=== PATIENT | male | born 1995 | race African-American/Black ===

== ENCOUNTER 2024-08-03 01:45 | Emergency (ER) | payer MEDICAID, SELFPAY ==
[2024-08-03 01:46] VITALS: BP 147/100; PULSE 97; RESP 18; TEMP 36.7; O2SAT 100
--- NOTE | 2024-08-03 02:21 | ED_ITS ---
HPI - General Adult General Chief complaint: Wound/Laceration Stated complaint: frostbite to toe Time Seen by Provider: 08/03/24 02:12 History of Present Illness HPI narrative: 28-year-old male presenting to the emergency department for evaluation for a wound to his left great toe. Patient reports he was walking back from a hotel to the care home where he lives. Patient states he does have a history of footdrop and was not wearing his foot brace and this was causing his foot to drag. This resulted in a avulsion laceration to the tip of the left great toe. Related Data Allergies Allergy/AdvReac Type Severity Reaction Status Date / Time No Known Allergies Allergy Verified 08/03/24 02:37 Review of Systems Review of Systems: All systems reviewed & are unremarkable except as noted in HPI and below Course Vital Signs Vital signs: Vital Signs Temperature 98.0 F 08/03/24 01:46 Pulse Rate 97 08/03/24 01:46 Respiratory Rate 18 08/03/24 01:46 Blood Pressure 147/100 H 08/03/24 01:46 Pulse Oximetry 100 08/03/24 01:46 Oxygen Delivery Room Air 08/03/24 01:46 Temperature 98.0 F 08/03/24 01:46 Pulse Rate 97 08/03/24 01:46 Respiratory Rate 18 08/03/24 01:46 Blood Pressure 147/100 H 08/03/24 01:46 Pulse Oximetry 100 08/03/24 01:46 Oxygen Delivery Room Air 08/03/24 01:46 Medical Decision Making [facility] Narrative Medical decision making narrative: 28-year-old male presenting to the emergency department for evaluation for an injury to his great toe. Sensation intact to the entire left toe and warm to touch. Patient was advised to continue to wear his foot brace and to wear a dressing on the toe until it heals. Patient was started on oral Keflex. Patient is currently on oral Bactrim for urinary tract infection. Differential Diagnosis Differential Diagnosis: Avulsion injury, frostbite Vital Signs Vital Signs: Vital Signs Temperature 98.0 F 08/03/24 01:46 Pulse Rate 97 08/03/24 01:46 Respiratory Rate 18 08/03/24 01:46 Blood Pressure 147/100 H 08/03/24 01:46 Pulse Oximetry 100 08/03/24 01:46 Oxygen Delivery Room Air 08/03/24 01:46 Temperature 98.0 F 08/03/24 01:46 Pulse Rate 97 08/03/24 01:46 Respiratory Rate 18 08/03/24 01:46 Blood Pressure 147/100 H 08/03/24 01:46 Pulse Oximetry 100 08/03/24 01:46 Oxygen Delivery Room Air 08/03/24 01:46 Discharge Plan Discharge Clinical Impression: Avulsion of skin Patient Disposition: NH Shelter/Asst Living Condition: Stable Instructions: Antibiotic Form, Skin Avulsion (ED) Additional Instructions: Keep wound clean and covered. Wear your foot brace to prevent footdrop. Have close follow-up with your primary care physician for a wound check. Patient Language: Frisian Prescriptions: New cephalexin 500 mg capsule 500 mg PO Q8H 7 Days Qty: 21 0RF
[2024-08-03] MEDS: CEPHALEXIN 500 MG CAPSULE PO (02:48)
[2024-08-03 09:23] VITALS: BP 131/80; PULSE 93; RESP 17; O2SAT 100
--- OUTSIDE RECORDS SUMMARY | 2024-08-10 03:27 | XMS_ITS | Encounter Summary ---
Author Organization [facility] Address [address] [place] [address] Care Team Providers Care Corporate Safety Coordinator Name Role Phone Mady Sullvian MD Primary Care Provider Encounter Details Date Type Department Care Team (Late st Contact Info) Description 11/02/2023 Interim Notes [id number] [place] [address] [facility] [place] Social History Tobacco Use Types Packs/Day Years Used Date Smoking Tobacco: Never Smokeless Tobacco: Never Alcohol Use Standard Drinks/Week Comments Yes 0 (1 standard drink = 0.6 oz pur e alcohol) occasional Social Connections Answer Date Recorded Connectedness 0 10/08/2020 Financial Resource Strain Answer Date R ecorded Financial Resource Strain 0 2020 Stress Answer Date Recorded Stress 0 10/08/2020 Physical Activity Answer Date Recorded Physical Activity 0 10/08/2020 Food Insecurity Answer Date Recorded Food 0 10/08/2020 Transportation Needs Answer Date Record ed Transportation 0 10/08/2020 Housing Stability Answer Date Recorded Housing 0 10/08/2020 Safety and Environment Answer Date Steven rded Safety 0 10/08/2020 Utilities Answer Date Recorded Utilities 0 10/08/2020 Employment Answer Date Recorded Stress 0 10/08/2020 Sex and Gender Information Value Date Recorded Sex Assigned at Male 12/05/2022 8:19 AM PDT Legal Sex Male 10:03 AM PST Gender Identity Male 12/05/2022 8:19 AM PDT Sexual Orientation Don't know 12/05/2022 2: 00 PM PDT documented as of this encounter Progress Notes * [facility] Provider Default - 11/02/2023 12:00 AM CDT Provider: Mahsa Dill [employer] Service: documented in this encounter Plan of Treatment Not on file documented as of this encounter Visit Diagnoses Not on filedocumented in this encounter Additional Health Concerns Assessment Noted Time PHQ-9 Depression Total Score: 6 12/06/19 12:00 PM PDT documented as of this encounter Care Teams Corporate Safety Coordinator Relationship Specialty Start Date End Date Mady Sullivan MD [address] [place] [id number] PCP - General Infectious Diseases 12/22/22 documented as of this encounter
--- OUTSIDE RECORDS SUMMARY | 2024-08-10 03:27 | XMS_ITS | Encounter Summary ---
Author Organization [facility] Address [address] [place] [address] Care Team Providers Care Attending Pathologist Name Role Phone Mady Sullivan MD Primary Care Provider Encounter Details Date Type Department Care Team (Latest Contact Info) Description 12/22/2022 Travel Social History Tobacco Use Types Packs/Day Years [...] Don't know 12/05/2022 2: 00 PM PDT COVID-19 Exposure Response Date Recorded In the last 10 days, have yo u been in contact with someone who was confirmed or suspected to have Coronavirus/COVID-19? No / Unsure 12/22/2022 9:33 AM CDT documented as of this encounter Plan of Treatment Not on file documented as of this encounter Visit Diagnoses Not on filedocumented in this encounter Additional Health Concerns Assessment Noted Time PHQ-9 Depression Total Score: 6 12/06/19 23 12:00 PM PDT documented as of this encounter Care Teams Attending Pathologist Relationship Specialty Start Date End Date Mady Sullivan MD [address] [place] [id number] PCP - General Infectious Diseases 12/22/22 documented as of this encounter
--- OUTSIDE RECORDS SUMMARY | 2024-08-10 03:27 | XMS_ITS | Encounter Summary ---
Author Organization [facility] Address [address] [place] [address] Care Team Providers Care Manager Highway Name Role Phone Mady Sullivan MD Primary Care Provider Reason for Visit * Reason Comments Care Coordination Encounter Details Date Type Department Care Team (Late st Contact Info) Description 12/04/2023 Interim Notes [facility] [address] [place] [id number] Mary Mena [address] [place] [address] Social History Tobacco Use Types Packs/Day Years [...] as of this encounter Progress Notes * Mary Mena - 12/05/2023 3:06 PM CDT Clinic CM provided a brief services check in. Pt completed [facility] intake. documented in this encounter Plan of Treatment Not on file documented as of this encounter Visit Diagnoses Not on filedocumented in this encounter Additional Health Concerns Assessment Noted Time PHQ-9 Depression Total Score: 4 12/04/19 24 4:00 PM PDT documented as of this encounter Care Teams Manager Highway Relationship Specialty Start Date End Date Mady Sullivan MD [address] [place] [phone] PCP - General Infectious Diseases 12/22/22 documented as of this encounter
--- OUTSIDE RECORDS SUMMARY | 2024-08-10 03:27 | XMS_ITS | Encounter Summary ---
Author Organization [facility] Address [address] [place] [address] Care Team Providers Care Javascript Web Developer Name Role Phone Mady Sullivan MD Primary Care Provider Reason for Visit * Reason Comments Oral Surgery 11 17 29 ext Encounter Details Date Type Department Care Team (Late st Contact Info) Description 08/29/2023 9:30 AM FILM MASKER Office Visit [address] [address] YenniJuan J mills, FIDEL [address] [place] [address] [id number] Retained tooth root (Primary Dx) Social History Tobacco Use Types Packs/Day Years [...] PM PDT documented as of this encounter Last Filed Vital Signs Vital Sign Reading Time Taken Comments Blood Pressure 120/78 08/29/2023 9:48 AM FILM MASKER Pulse 62 08/29/2023 9:48 AM FILM MASKER Temperature 36.4 ??C (97.6 ??F) 08/29/2023 9:48 AM CS T Respiratory Rate - - Oxygen Saturation - - Inhaled Oxygen Concentration - - Weight - - Height - - Body Mass Index - - documented in this encounter Progress Notes * Juan J Torres DMD - 08/29/2023 10:25 AM CST DENTAL EXTRACTION Confirmed client by name and date of . SUBJECTIVE: Phil Chase, 27 year old male, presents alone for extraction. Blower Insulator: Not applicable Chief Complaint Patient presents with Oral Surgery 4 30 ext OBJECTIVE: RMHx: Yes Vitals: 08/29/2023 9:48 AM BP 120/78 Pulse 62 BP Site Right Wrist BP Position Sitting BP Cuff Size Regular Adult Pain Score 0 - No pain Temp 97.6 (36.4) Temp source Forehead / Temporal RADIOGRAPHS TAKEN AND REVIEWED: None taken - previous radiographs reviewed ASSESSMENT: Verification of sterile instruments confirmed via internal and external indicator. Dx: K08.3 Retained tooth root (primary encounter diagnosis) Dx Details (Clinical Decision-Making): Patient reports for extraction of #4, #28, #30 but doesn't want to have #28 extracted due to he is having wedding photos taken. Will do #4 only today. PLAN: Informed Consent/PARQ (Procedure, Alternatives, Risks, Questions): Patient confirms informed consent using PARQ, reviewed extraction consent and signed. Time-out completed: Patient identity confirmed, Patient and provider confirm tooth/teeth to be extracted today, and Provider reviewed current radiograph (taken within 6 months) Dental procedures in this visit D7210 - EXTRACTION ERU TOOTH RQR REMV BONE &/SECTN TOOTH 4 (Completed) Service provider: Juan J Torres DMD Billing provider: Juan J Torres DMD MEDHXU - MEDICAL HISTORY UPDATE (Completed) Service provider: Juan J Torres DMD Billing provider: Juan J Torres DMD [id number] - ORAL HYGIENE INSTRUCTIONS Full (Completed) Service provider: Juan J Torres DMD Billing provider: Juan J Torres DMD Topical Anesthetic: 20% topical benzocaine Local Anesthetic: 1 carpule 4% articaine (Septocaine) with 1:100k epi Injection administered: Infiltration Extraction(s) completed. Details: periosteal, elevator, forceps, socket irrigated, socket curretted, hemostasis obtained, gauze pressure, confirmed roots in tact and socket clear, no complications Post-Op Information Given: written & verbal - - All questions answered, patient left in stable and alert condition. Pain Management: not indicated for this procedure Referral: No orders of the defined types were placed in this encounter. Rx: No orders of the defined types were placed in this encounter. Behavior: Excellent DA: Adrienne Scales [place]: Treatment - Extraction #28 and #30 Juan J Torres DMD [id number] documented in this encounter Plan of Treatment Not on file documented as of this encounter Procedures Procedure Name Priority Date/Time Associated Diagnosis Comments MEDICAL HISTORY UPDATE Routine 9:30 AM FILM MASKER Retained tooth root 4 EXTRACTION ERU TOOTH RQR REMV BONE &/SECTN TOOTH Routine 08/29/2023 9:30 AM FILM MASKER Retained tooth root Full ORAL HYGIENE INSTRUCTIONS Routine 08/29/2023 9:30 AM FILM MASKER Retained tooth root documented in this encounter Visit Diagnoses Diagnosis Retained tooth root- Primary Retained dental root documented in this encounter Additional Health Concerns Assessment Noted Time PHQ-9 Depression Total Score: 6 12/06/19 12:00 PM PDT documented as of this encounter Care Teams Javascript Web Developer Relationship Specialty Start Date End Date Mady Sullivan MD [address] [place] [id number] PCP - General Infectious Diseases 12/22/22 documented as of this encounter
--- OUTSIDE RECORDS SUMMARY | 2024-08-10 03:27 | XMS_ITS | Encounter Summary ---
Author Organization [facility] Address [address] [place] [address] Care Team Providers Care Deoiling Machine Operator Name Role Phone Mady Sullivan MD Primary Care Provider Encounter Details Date Type Department Care Team (Late st Contact Info) Description 06/27/2023 Interim Notes [facility] [address] [place] [phone] Mary Pozo [address] [place] [address] Social History Tobacco Use Types Packs/Day Years [...] of this encounter Progress Notes * Mary Pozo - 06/27/2023 11:22 AM CST Patient is enrolled into with [employer], patient requested his DCN# from clinic cm which wasprovided to him, no other immediate needs at this visit. documented in this encounter Plan of Treatment Not on file documented as of this encounter Visit Diagnoses Not on filedocumented in this encounter Additional Health Concerns Assessment Noted Time PHQ-9 Depression Total Score: 6 12/06/19 12:00 PM PDT documented as of this encounter Care Teams Deoiling Machine Operator Relationship Specialty Start Date End Date Mady Sullivan MD [address] [place] [phone] PCP - General Infectious Diseases 12/22/22 documented as of this encounter
--- OUTSIDE RECORDS SUMMARY | 2024-08-10 03:27 | XMS_ITS | Encounter Summary ---
Author Organization [facility] Address [address] [place] [address] Care Team Providers Care Customs And Border Protection Inspector Name Role Phone Mady Sullivan MD Primary Care Provider Reason for Visit * Reason Onset Date Comments Behavioral Health Outreach 07/10/2023 Individual Counseling 07/10/2023 Encounter Details Date Type Department Care Team (Late st Contact Info) Description 07/10/2023 / TELEPHONE [facility] [place] [address] [place] [address] Zana Ramos, MEDICAL AFFAIRS SPECIALIST, STEM MOUNTER [address] [place] [address] Social History Tobacco Use Types Packs/Day Years [...] PM PDT documented as of this encounter Nursing Notes * AIDE Silva, MONA - 07/10/2023 1:44 PM CST Made several attempts to contact the client for our scheduled appointment and did not receive a response. Will follow-up and assist as needed. documented in this encounter Plan of Treatment Not on file documented as of this encounter Visit Diagnoses Not on filedocumented in this encounter Additional Health Concerns Assessment Noted Time PHQ-9 Depression Total Score: 6 12/06/19 12:00 PM PDT documented as of this encounter Care Teams Customs And Border Protection Inspector Relationship Specialty Start Date End Date Mady Sullivan MD [address] [place] [phone] PCP - General Infectious Diseases 12/22/22 documented as of this encounter
--- OUTSIDE RECORDS SUMMARY | 2024-08-10 03:27 | XMS_ITS | Encounter Summary ---
Author Organization [facility] Address [address] [place] [address] Care Team Providers Care Fellmongering Machine Operator Name Role Phone Mady Sullivan MD Primary Care Provider Reason for Referral * Psychiatry (Routine) - Closed Specialty Diagnoses / Procedures Referred By Contac t Referred To Contact Psychiatry / Mental Health Diagnoses Anxiety Mady Sullivan MD [address] [place] [id number] Phone: tel: fax: [address] [phone] Phone: tel: fax: Referral ID Status Reason Start Date Expiration Date V isits Requested Visits Authorized [id number] [facility] 06/27/2023 06/26/2024 1 1 Comments 27 year old man with HIV that was recently not controlled with low CD4, now with good control on meds and engaged in treatment. Patient has prior diagnosis of bipolar I, depression and history of methamphetamine use (per chart, in our discussion he denies; sounds like he was in remission for a long time then relapsed this fall), with multiple hospitalizations for SI/SA in past, usually around the same time each year, last ED visit 06/21/23. He has been on sertraline, recently dose increased from 50 to 100 mg, added abilify and atarax prn. Patient says anxiety continues to be very profound and debilitating. He is recently engaged and going back to school to finish a master's in computer science, this is exciting but also contributing to his anxiety. Of note, recently developed erectile dysfunction, not sure if related to med changes. On exam he has pressured affect and hyperkinesia. Intermittently engaged in therapy with Zana. 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 Referral for evaluation, therapy, consideration for orthotics OMER CARE REPRESENTATIVE Reason for Visit * Reason Comments HIV Follow Up Encounter Details Date Type Department Care Team (Latest Contact Info) Description 06/27/2023 10:00 AM CUSTOMER CARE REPRESENTATIVE Office Visit [facility] [employer] [address] [place] [phone] Mady Sullivan MD [address] [place] [phone] Human immunodeficiency virus (HIV) disease ([facility]) (Primary Dx); Screening examination for STD (sexually transmitted disease); Need for hepatitis C screening test; Erectile dysfunction, unspecified erectile dysfunction type; Lipid screening; Need for dqtsdifmpm-iqdevsr-zoinx ssis (Tdap) vaccine; Need for HPV vaccination; Right foot drop; Anxiety; Unilateral inguinal hernia with obstruction and without gangrene, recurrence not specified; Condyloma; Bipolar 2 disorder ([facility]) Social History Tobacco Use Types Packs/Day Years [...] Sign Reading Time Taken Comments Blood Pressure 139/94 06/27/2023 10:39 AM CUSTOMER CARE REPRESENTATIVE Pulse 77 06/27/2023 10:39 AM CUSTOMER CARE REPRESENTATIVE Temperature 36.3 ??C (97.4 ??F) 06/27/2023 10:[address] Respiratory Rate 18 06/27/2023 10:39 AM CUSTOMER CARE REPRESENTATIVE Oxygen Saturation 95% 06/27/2023 10:39 AM CUSTOMER CARE REPRESENTATIVE Inhaled Oxygen Concentration - - Weight 77.2 kg (170 lb 3.2 oz) 06/27/2023 10:39 AM CUSTOMER CARE REPRESENTATIVE Height 182.9 cm (6') 06/27/2023 10:39 AM CUSTOMER CARE REPRESENTATIVE Body Mass Index 23.08 06/27/2023 10:39 AM CUSTOMER CARE REPRESENTATIVE documented in this encounter Patient Instructions * Attachments The following attachments cannot be sent through Care Everywhere. * Anxiety Disorder (Albanian) * Stress: Progressive Muscle Relaxation: General Info (Albanian) documented in this encounter Progress Notes * Mady Sullivan MD - 06/27/2023 10:00 AM CST Images from the original note were not included. HPI: Phil Chase is a 27 year old male with history of HIV infection who presents to [facility] clinic for routine follow-up. Patient was last seen in clinic on 03/21/23. Lab Results Component Value Date CD4 202 (L) 03/21/2023 CD4 120 (L) 12/05/2022 CD4 148 (L) 10/08/2020 Lab Results Component Value Date COPIESML <20 DETECTED (A) 03/21/2023 COPIESML 50 (H) 12/05/2022 COPIESML 355,000 (H) 10/08/2020 Interim - got his R inguinal hernia repair in late March! - recently engaged! HIV - Much improved viral control, last visit ND on Biktarvy - endorses continued excellent adherence to Biktarvy - CD4 reached 202 in February, has not been on Bactrim, but unclear why stopped ?communication issue R. Inguinal Hernia - met with Dr. Blair last on 04/19 to remove drains, assessed to be doing well - healed well but I have a third testicle - feels an extra mass on right scrotum - no other symptoms: no abdominal/groin pain, no dysuria, no skin changes, no LAD History of syphilis - finished bicillin last December - no symptoms, has new monogamous partner Condyloma - recurrent after prior exision/fulguration - referred to colorectal surgery last visit, has not seen yet, requesting phone number - feels it is bigger - no pain, bleeding. Depression/anxiety/bipolar - prior h/o of SI and plan, 06/2022, recently seen in ED on 06/21/23 - medications were changed: on sertraline 50 mg daily increased to 100mg - has been on abilify 2 vs 4 months. Has prn hydroxyzine - having marked anxiety, finds it debilitating. Wedding planning and plans to go back to school adding to anxiety (though also excited). Current med regimen does not seem to be helping with this. - has not had outpatient psychiatry follow up, interested now. Previously engaged in therapy with Zana, interested in restarting - denies methamphetamine or other stimulant use, though notes he has tried it. Chart review notes he may have used more in past but has been in remission except for a relapse around the time of his ED visit - not exercising regularly, meditated in the past but not recently ED - erectile dysfunction in last 2 months: unable to have an erection at all when with partner - has morning erection and able to have erection when alone, normal ejaculation, no change in libido - change came after hernia repair recovery, does not seem correlated - time frame of of zoloft dose increase and ability also 2ish months History of transverse myelitis with residual RLE weakness, foot drop, RLE parasthesia on gabapentin - had discussed orthotics at some point but not fitted - symptoms stable Habits - STI screen - yes 3sites - tobacco - vape, cannabis - etoh - 2 days every weeks 4 shots - other- reports trying methamphetamines denies regular use SH - Newly engaged! As of last week. 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 30 Tablet 0 ibuprofen 600 mg tablet Take 1 Tablet by mouth every 6 (six) hours as needed FOR PAIN 30 Tablet 0 oxyCODONE (ROXICODONE) 5 mg tablet Take 1 (one) tablet by mouth every 6 hours as needed for Pain 20Tablet 0 sennosides-docusate sodium (SENOKOT-S) 8.6-50 mg per tablet Take 1 tablet by mouth once daily 30 Tablet 0 sertraline (ZOLOFT) 50 mg tablet TAKE 1 TABLET BY MOUTH DAILY 30 Tablet 2 sulfamethoxazole-trimethoprim (BACTRIM DS) 800-160 mg per tablet Take 1 tablet by mouth daily. 30 Tablet 0 doxycycline (VIBRAMYCIN) 100 mg capsule Take 1 Capsule by mouth 2 (two) times daily 14 Capsule 0 triamcinolone (KENALOG) 0.1 % ointment Apply topically 2 (two) times daily 80 g 1 docusate sodium (COLACE) 100 mg capsule Take 1 capsule (100 mg total) by mouth 2 (two) times a day 30 Capsule 0 oxyCODONE (ROXICODONE) 5 mg tablet Take 1 tablet (5 mg total) by mouth every 4 (four) hours as needed for pain 30 Tablet 0 No current facility-administered medications for this visit. Review of Systems: General: no unexplained weight loss, night sweats and fever Skin: no rash, ulcers and lesions Lymph: no localized enlargement of lymph nodes Mouth: no gum disease, ulcers, oral lesions and pain Cardiopulmonary: no chest pain, shortness of breath and palpitations Gastrointestinal: no diarrhea, nausea and abdominal pain Genitourinary: no dysuria and urethral discharge or lesions, testicular sx per hpi Physical Exam: Vitals: Last 3 Vitals Flowsheet Row Office Visit from 06/27/2023 in [facility] Office Visit from 03/21/2023 in [facility] Office Visit from 12/05/2022 in [facility] Temp 97.4 ??F (36.3 ??C) 97.4 ??F (36.3 ??C) 97.3 ??F (36.3 ??C) Pulse 77 97 63 BP 139/94 104/62 145/91 Resp 18 -- -- Weight 170 lb 3.2 oz (77.2 kg) 166 lb (75.3 kg) 172 lb 12.8 oz (78.4 kg) Exam: Gen: well appearing, comfortable, nad; pressured affect, hyperkinesis HENT: EOMI, no conjunctival injection, no o/p lesions, no cervical LAD Card: RRR no m/r/g Pulm: CTAB Abd: soft nontender nondistended, no hsm appreciated Rectal exam: 3-4 small condyloma exam - right scrotum with two distinct masses, one typical for testis the second less characteristic, appears to be connected to testis. Left scrotum with single testis. Excess scrotal skin. No inguinal LAD or bulging Extremities: no peripheral edema, warm, well perfused Laboratory Data: Routine: Latest Ref Rng & Units 03/21/2023 3:23 PM 12/05/2022 11:41 AM 10/08/2020 11:25 AM HIV HIV Viral Load NOT DETECTED <20 DETECTED 50 355,000 Latest Ref Rng & Units 03/21/2023 3:23 PM 12/05/2022 11:41 AM 10/08/2020 11:25 AM CBC White blood cell count 3.8 - 10.8 Thousand/uL 3.8 4.4 2.5 Hemoglobin 13.2 - 17.1 g/dL 15.1 13.9 15.3 Hematocrit 38.5 - 50.0 % 46.6 46.2 47.8 Platelets 140 - 400 Thousand/uL 529 398 336 Latest Ref Rng & Units 03/21/2023 3:23 PM 12/05/2022 11:41 AM 10/08/2020 11:25 AM Liver Enzymes AST 10 - 40 U/L 16 14 26 ALT 9 - 46 U/L 20 13 24 Alk phos 36 - 130 U/L 80 90 80 Bilirubin total 0.2 - 1.2 mg/dL 0.4 0.4 0.6 Latest Ref Rng & Units 03/21/2023 3:23 PM 12/05/2022 11:41 AM 10/08/2020 11:25 AM Creatinine Creatinine 0.60 - 1.24 mg/dL 1.02 0.94 1.08 Annuals: Lab Results Component Value Date QUANTIFERON NEGATIVE 03/21/2023 Lab Results Component Value Date HEPCABQL NON-REACTIVE 12/05/2022 Lab Results Component Value Date HGBA1C 5.2 06/12/2023 Lab Results Component Value Date CHOL 191 10/08/2020 HDL 47 10/08/2020 LDL 127 (H) 10/08/2020 TRIGLYC 75 10/08/2020 Lab Results Component Value Date URPROT 1+ (A) 10/08/2020 URGLUC NEGATIVE 10/08/2020 No results found for: [id number] Lab Results Component Value Date HEPAABQL REACTIVE (A) 10/08/2020 HBSAB NON-REACTIVE 10/08/2020 HBSAGQL NON-REACTIVE 10/08/2020 Lab Results Component Value Date HEPCABQL NON-REACTIVE 12/05/2022 STI: Lab Results Component Value Date RPR REACTIVE (A) 03/21/2023 RPR REACTIVE (A) 12/05/2022 RPR REACTIVE (A) 10/08/2020 Lab Results Component Value Date CHLAMYDIA NOT DETECTED 03/21/2023 CHLAMYDIA NOT DETECTED 12/05/2022 CHLAMYDIA NOT DETECTED 10/08/2020 CHLAMPHARYNG NOT DETECTED 03/21/2023 CHLAMPHARYNG NOT DETECTED 12/05/2022 CHLAMANAL NOT DETECTED 03/21/2023 CHLAMANAL DETECTED (A) 12/05/2022 GC NOT DETECTED 03/21/2023 GC NOT DETECTED 12/05/2022 GC NOT DETECTED 10/08/2020 GCPHARYNG NOT DETECTED 03/21/2023 GCPHARYNG NOT DETECTED 12/05/2022 GCANAL NOT DETECTED 03/21/2023 GCANAL NOT DETECTED 12/05/2022 Immunization History Administered Date(s) Administered DTAP 1993, 02/23/1994, 05/18/1994, 04/05/1995, 10/15/1998 Flu, Preservative Free 06/17/2023 HPV 9 03/21/2023, 06/27/2023 Hep A, Ped/adol, 2 Dose 10/05/2005 Hep B, Adult/Adol (ENERGIX/RECOMBIVAX) 08/06/2019 Hep B, Unspecified 01/05/1994, 04/10/1994, 09/22/1998 Hib (PRP-T) 1993, 02/23/1994, 05/18/1994, 04/05/1995 IPV 02/05/2003 MENINGOCOCCAL MCV4P (MENACTRA) 10/05/2005 MMR 10/19/1994, 10/15/1998 OPV, Trivalent 1993, 02/23/1994, 05/18/1994 PNEUMOCOCCAL CONJUGATE PCV 13 08/06/2019 PNEUMOCOCCAL POLYSACCHARIDE PPV23 08/06/2019 POLIO, UNSPECIFIED 11/18/1996 Pfizer-BioNTech COVID-19 Vaccine Bivalent, (RENEE PFIZER-BIONTECH COVID-19 VACCINE BIVALENT, (RENEE CAP 07/12/2022 TDAP 06/27/2023 Varicella, Live Vaccine 11/18/1996 Problem List: Patient Active Problem List Diagnosis HIV infection ([facility]) Syphilis Right foot drop 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[facility]) Anal warts HSV infection Anal fistula Bipolar disorder, current episode mixed, moderate ([facility]) Condyloma RENEE (generalized anxiety disorder) Inguinal hernia Major depressive disorder, recurrent episode, moderate ([facility]) Assessment/Plan: Phil was seen today for hiv and follow up. Diagnoses and all orders for this visit: Human immunodeficiency virus (HIV) disease ([facility]) - recently well controlled on Biktarvy - Cd4 was newly 202 in February but Bacrtim stopped in interim, ?miscommunication - routine labs today, if CD4 dips below 200 restart bactrim - serodiscordant partner on PrEP, discussed U=U - BLOOD COUNT COMPLETE AUTO&AUTO DIFRNTL WBC - COMPREHENSIVE METABOLIC PANEL - HIV-1 RNA QUANT REAL TIME PCR, PLASMA - T CELLS ABSOLUTE CD4&CD8 COUNT RATIO Screening examination for STD (sexually transmitted disease) - RPR (MONITOR) W/REFL TITER - C TRACHOMATIS/N GONORRHOEAE RNA,TMA - CHLAMYDIA/GONORRHOEAE RNA, TMA, THROAT - CHLAMYDIA/GONORRHEA, RNA TMA, RECTAL Erectile dysfunction, unspecified erectile dysfunction type - reports normal nocturnal penile tumescence, normal erection/ejaculation when on his own, normal libido - primarily has ED when with partner - differential: hypogonadism, anxiety, increased zoloft/added abilify, other - ASSAY OF TESTOSTERONE TOTAL Right foot drop - REFERRAL TO PHYSICAL THERAPY Bipolar 2 disorder ([facility]) Anxiety - bipolar 1 listed in parts of chart - h/o of SI/SA, most recently in ED for this in 06/21/23 - recent med adjustment: inc zoloft dose to 100, added abilify, atarax prn - having debilitating anxiety and interested in med adjustment - ?comorbid substance use. maybe in remission - discussed role for regular exercise, relaxation techniques, meditation - will follow up with Zana for therapy - REFERRAL TO PSYCHIATRY Unilateral inguinal hernia with obstruction and without gangrene, recurrence not specified - s/p Mesh repair in 03/2023 - well healed but two masses in left scrotum, ?epididymiss, appears to be connected to testis - no pain, signs of inflammation - patient to schedule follow up with Dr. Blair to evaluate if anything related to hernia or surgery - consider scrotal us if not able able to get follow up soon or thought to be primarily urological,STI testing today Condyloma - thinks it got bigger, no bleeding or pain - provided number for colorectal surgery referral again - discussed discussed transmission risk - it is possible, they are using condoms HCM Need for hepatitis C screening test Need for HPV vaccination Lipid screening Need for ylxmgpguer-ijbcjgu-ibsnyqkbq (Tdap) vaccine - next visit meningococcal -> got age 10, never got second booster at 14 - third hpv in ~August - IM ADM PRQ ID SUBQ/IM NJXS 1 VACCINE - LIPIDS W RFLX TO DIRECT LDL - IM ADM PRQ ID SUBQ/IM NJXS EA VACCINE - HEPATITIS C AB W/RFLX HCV RNA, QT, RT PCR - 9VHPV VACC 2/3 DOSE SCHED IM USE - TDAP VACCINE 7 YRS/> IM Follow Up: Return in about 6 weeks (around 08/08/2023). Total time spent today on today's visit including both face to face time and non-face to face time personally spent on history taking and exam, review of labs, medications, care gaps, and informationin CareEverywhere, discussing labs, treatment plans, goals, and referrals to specialists if needed,and answering patient's questions and coordinating care: 43 minutes documented in this encounter Miscellaneous Notes * Result Encounter Note - Mady Sullivan MD - 07/02/2023 1:03 PM CUSTOMER CARE REPRESENTATIVE GC x 2 neg RPR titer persists though >> 4 fold decrease since November 2022 titer and treatment (32 fold dropin 7 months) Tcells much improved to 286 * Result Encounter Note - Mady Sullivan MD - 06/28/2023 4:16 PM CUSTOMER CARE REPRESENTATIVE PENDING- Gcx2, RPR titer, tcells CMP nl - slightly hi protein Lipids - nl RPR - reactive (known) HIV VL ND GC x 1 * Result Encounter Note - Mady Sullivan MD - 06/28/2023 8:32 AM CUSTOMER CARE REPRESENTATIVE PENDING- Gcx3, lipids, RPR, tcells, HIV VL, CMP CBC - slight leukopenia close to previous Testosterone - slightly high 892 (ULM 827) Ddx: adrenal etiology, exogenous testosterone, exogenous hyperprolactinemia, Will await CMP to further assess differential and next steps HCV neg - tested sooner per pt request * Patient Instructions - Mady Sullivan MD - 06/27/2023 11:17 AM CUSTOMER CARE REPRESENTATIVE Great to see you today! Here are next steps (1) Schedule Colorectal [facility] [phone] F [phone] (2) schedule a follow up with Dr. Blair at [facility] re: hernia surgery follow up questions [phone] (3) Follow up with Dr. Decker (psychiatry) about medication/anxiety management and Lamara for therapy (4) For Anxiety: in addition to follow up, start regular exercise with whatever is enjoyable (running, yoga, pilates) at least once a week and increase to at least three times a week. See informationon relaxation techniques and consider meditation. Make sure you get plenty of sleep each night. documented in this encounter Plan of Treatment Scheduled Referrals Name Type Priority Associated Diagnoses Orde r Schedule REFERRAL TO PHYSICAL THERAPY Referral Routine Right foot drop Ordered: 06/27/2023 REFERRAL TO PSYCHIATRY Referral Routine Anxiety Ordered: 06/27/2023 documented as of this encounter Procedures Procedure Name Priority Date/Time Associated Diagnosis Comments CHLAMYDIA/GONORRHOEA E RNA, TMA, THROAT Routine 06/27/2023 3:17 PM CUSTOMER CARE REPRESENTATIVE Screening examination for STD (sexually transmitted disease) CHLAMYDIA/GONORRHEA, RNA TMA, RECTAL Routine 06/27/2023 3:17 PM CUSTOMER CARE REPRESENTATIVE Screening examination for STD (sexually transmitted disease) HEPATITIS C AB W/RFLX HCV RNA, QT, RT PCR Routine 06/27/2023 11:21 AM CUSTOMER CARE REPRESENTATIVE Need for hepatitis C screening test C TRACHOMATIS/N GONORRHOEAE RNA,TMA Routine 06/27/2023 11:21 AM CUSTOMER CARE REPRESENTATIVE Screening examination for STD (sexually transmitted disease) RFLX - RPR TITER Routine 06/27/2023 11:2 1 AM CUSTOMER CARE REPRESENTATIVE HIV-1 RNA QUANT REAL TIME PCR, PLASMA Routine 06/27/2023 11:21 AM CUSTOMER CARE REPRESENTATIVE Human immunodeficiency virus (HIV) disease ([facility]) LIPIDS W RFLX TO DIRECT LDL Routine 06/27/2023 11:21 AM CUSTOMER CARE REPRESENTATIVE Lipid screening RPR (MONITOR) W/REFL TITER Routine 06/27/2023 11:21 AM CUSTOMER CARE REPRESENTATIVE Screening examination for STD (sexually transmitted disease) T CELLS ABSOLUTE CD4&CD8 COUNT RATIO Routine 06/27/2023 11:21 AM CUSTOMER CARE REPRESENTATIVE Human immunodeficiency virus (HIV) disease ([facility]) BLOOD COUNT COMPLETE AUTO&AUTO DIFRNTL WBC Routine 06/27/2023 11:21 AM CUSTOMER CARE REPRESENTATIVE Human immunodeficiency virus (HIV) disease ([facility]) ASSAY OF TESTOSTERONE TOTAL Routine 06/27/2023 11:21 AM CUSTOMER CARE REPRESENTATIVE Erectile dysfunction, unspecified erectile dysfunction type COMPREHENSIVE METABOLIC PANEL Routine 06/27/2023 11:21 AM CUSTOMER CARE REPRESENTATIVE Human immunodeficiency virus (HIV) disease ([facility]) documented in this encounter Results * CHLAMYDIA/GONORRHEA, RNA TMA, RECTAL (06/27/2023 3:17 PM CUSTOMER CARE REPRESENTATIVE) CHLAMYDIA TRACHOMATIS RNA, TMA, RECTAL NOT DETECTED [facility]/ [facility] [place] GONORRHOEAE RNA, TMA, RECTAL NOT DETECTED [facility]/ [facility] Comment: REFERENCE RANGE: ??NOT DETECTED Methodology: ??Mold Design Engineer Mediated Amplification (TMA) to detect RNA. The analytical performance characteristics of this assay have been determined by [employer] [facility]. The modifications have not been cleared or approved by the FDA. This assay has been validated pursuant to the CLIA regulations and is used for clinical purposes. Swab Specimen from rectum / Unknown 06/27/2023 3:17 PM CUSTOMER CARE REPRESENTATIVE 06/28/2023 9:07 AM CUSTOMER CARE REPRESENTATIVE us Mady Sullivan MD LAB - NO BLOOD DRAW Ed ited Result - Final [employer] [address] [address] [place] [address] [facility] [employer]/[facility] [id number] [place] [id number] * CHLAMYDIA/GONORRHOEAE RNA, TMA, THROAT (06/27/2023 3:17 PM CUSTOMER CARE REPRESENTATIVE) CHLAMYDIA TRACHOMATIS RNA, TMA, THROAT NOT DETECTED [facility]/ [facility] NEISSERIA GONORRHOEAE RNA, TMA, THROAT NOT DETECTED [facility]/ [facility] Comment: REFERENCE RANGE: ??NOT DETECTED Methodology: ??Mold Design Engineer Mediated Amplification (TMA) to detect RNA. The analytical performance characteristics of this assay have been determined by [employer]. The modifications have not been cleared or approved by the FDA. This assay has been validated pursuant to the CLIA regulations and is used for clinical purposes. For additional information, please refer to https://education.ShopEx.Couple/faq/KYP204 (This link is being provided for informational/educational purposes only.) Swab Structure of anterior portion of neck / Unknown 06/27/2023 3:17 PM CUSTOMER CARE REPRESENTATIVE 06/28/2023 9:07 AM CUSTOMER CARE REPRESENTATIVE us Mady Sullivan MD LAB - NO BLOOD DRAW Ed ited Result - Final Performing Organization Address City/[facility]/ZIP Co de Phone Number [facility] [address] [address] [place] [address] [facility] [address] [place] [address] * (ABNORMAL) RFLX - RPR TITER (06/27/2023 11:21 AM CUSTOMER CARE REPRESENTATIVE) RPR TITER 1:64(H) [facility] [place] 06/27/2023 11:2 1 AM CUSTOMER CARE REPRESENTATIVE 06/27/2023 11:23 AM CUSTOMER CARE REPRESENTATIVE Mady Sullivan MD LAB - BLOOD DRAW Edite d Result - Final Performing Organization Address City/[facility]/ZIP Co de Phone Number [facility] [place] [address] [place] [address], [email or web address] [address] [place] [address] * LIPIDS W RFLX TO DIRECT LDL (06/27/2023 11:21 AM CUSTOMER CARE REPRESENTATIVE) Pathologist [facility] CHOLESTEROL, TOTAL 163 <200 mg/dL [facility] [place] HDL CHOLESTEROL 49 > OR = 40 mg/dL [facility] [place] TRIGLYCERIDES 66 <150 mg/dL [facility] [place] LDL-CHOLESTEROL 99 mg/dL (calc) [facility] [place] Comment: Reference range: <100 Desirable range <100 mg/dL for primary prevention; ?? <70 mg/dL for patients with CHD or diabetic patients with > or = 2 CHD risk factors. LDL-C is now calculated using the Merrick-Marychuy calculation, which is a validated novel method providing better accuracy than the Friedewald equation in the estimation of LDL-C. Merrick SS et al. PARESH. 2013;310(19): 9414-9392 (http://education.[employer]/faq/VVL585) CHOL/HDLC RATIO 3.3 <5.0 (calc) [facility] NON-HDL CHOLESTEROL 114 <130 mg/dL (calc) [facility] Comment: For patients with diabetes plus 1 major ASCVD risk factor, treating to a non-HDL-C goal of <100 mg/dL (LDL-C of <70 mg/dL) is considered a therapeutic option. Blood Blood / Unknown 06/27/2023 1 1:21 AM CUSTOMER CARE REPRESENTATIVE 06/28/2023 3:06 AM CUSTOMER CARE REPRESENTATIVE us Mady Sullivan MD LAB - BLOOD DRAW Edite d Result - Final Performing Organization Address City/[facility]/ZIP Co de Phone Number [employer] [address] [address], [employer] [address] [address] * (ABNORMAL) ASSAY OF TESTOSTERONE TOTAL (06/27/2023 11:21 AM CUSTOMER CARE REPRESENTATIVE) TESTOSTERONE, TOTAL 892(H) 250 - 827 ng/dL [employer] [place] Blood Blood / Unknown 06/27/2023 1 1:21 AM CUSTOMER CARE REPRESENTATIVE 06/28/2023 3:15 AM CUSTOMER CARE REPRESENTATIVE us Mady Sullivan MD LAB - BLOOD DRAW Edite d Result - Final Performing Organization Address [facility] Co de Phone Number [employer] [address] [address], [employer] [address] [address] * HEPATITIS C AB W/RFLX HCV RNA, QT, RT PCR (06/27/2023 11:21 AM CUSTOMER CARE REPRESENTATIVE) HEPATITIS C ANTIBODY NON-REACT FARTUN NON-REACT FARTUN [email or web address] [place] Comment: HCV antibody was non-reactive. There is no laboratory evidence of HCV infection. In most cases, no further action is required. However, if recent HCV exposure is suspected, a test for HCV RNA (test code 37182) is suggested. For additional information please refer to http://education.[employer]/faq/LHM17o8 (This link is being provided for informational/ educational purposes only.) Blood Blood / Unknown 06/27/2023 1 1:21 AM CUSTOMER CARE REPRESENTATIVE 06/28/2023 3:15 AM CUSTOMER CARE REPRESENTATIVE us Mady Sullivan MD LAB - BLOOD DRAW Edite d Result - Final Performing Organization Address City/[facility]/ZIP Co de Phone Number [employer] [place] [id number] [place] [address], [employer] [address] [address] * C TRACHOMATIS/N GONORRHOEAE RNA,TMA (06/27/2023 11:21 AM CUSTOMER CARE REPRESENTATIVE) [facility] CHLAMYDIA TRACHOMATIS RNA, TMA NOT DETECTED NOT DETECTED [email or web address] [place] NEISSERIA GONORRHOEAE RNA, TMA NOT DETECTED NOT DETECTED [facility] COMMENT [facility] [place] Urine Urine specimen / Unknown 06/27/2023 11:21 AM CUSTOMER CARE REPRESENTATIVE 06/28/2023 5:44 AM CUSTOMER CARE REPRESENTATIVE Narrative [facility] [place] - 06/29/2023 12:36 AM CUSTOMER CARE REPRESENTATIVE The analytical performance characteristics of this assay, when used to test SurePath(TM) specimens have been determined by [employer]. The modifications have not been cleared or approved by the FDA. This assay has been validated pursuant to the CLIA regulations and is used for clinical purposes. For additional information, please refer to https://education.[employer]/faq/DZH801 (This link is being provided for information/ educational purposes only.) us Mady Sullivan MD LAB - NO BLOOD DRAW Ed ited Result - Final Performing Organization Address City/[facility]/ZIP Co de Phone Number [employer] [place] [phone] [place] [address], [employer] [address] [address] * (ABNORMAL) RPR (MONITOR) W/REFL TITER (06/27/2023 11:21 AM CUSTOMER CARE REPRESENTATIVE) [facility] RPR (MONITOR) W/REFL TITER REACTIVE( A) NON-REACT FARTUN [facility] Comment: The RPR is a raf-alufqahwxd-relxxygf test; therefore, a treponemal-specific confirmatory test should be performed unless prior syphilis infection has been documented for this patient. Blood Blood / Unknown 06/27/2023 1 1:21 AM CUSTOMER CARE REPRESENTATIVE 06/28/2023 3:34 AM CUSTOMER CARE REPRESENTATIVE us Mady Sullivan MD LAB - BLOOD DRAW Edite d Result - Final Performing Organization Address City/[facility]/ZIP Co de Phone Number [employer] [facility] [place] [address] [place] [address], [employer] [facility] [address] [place] [address] * (ABNORMAL) T CELLS ABSOLUTE CD4&CD8 COUNT RATIO (06/27/2023 11:21 AM CUSTOMER CARE REPRESENTATIVE) [facility] % CD4 (HELPER CELLS) 12(L) 30 - 61 % [facility] [place] ABSOLUTE CD4+ CELLS 286(L) 490 - 1,740 cells/uL [facility] [place] % CD8 (SUPPRESSOR T CELLS) 64(H) 12 - 42 % [facility] [place] ABSOLUTE CD8+ CELLS 1,457(H) 180 - 1,170 cells/uL [facility] [place] HELPER/SUPPRESS OR RATIO 0.20(L) 0.86 - 5.00 [facility] [place] ABSOLUTE LYMPHOCYTES 2,293 850 - 3,900 cells/uL [facility] [place] COMMENT(S) CANCELED [facility] [place] Comment:Result canceled by debora tavera. Blood Blood / Unknown 06/27/2023 1 1:21 AM CUSTOMER CARE REPRESENTATIVE 06/28/2023 8:44 PM CUSTOMER CARE REPRESENTATIVE us Mady Sullivan MD LAB - BLOOD DRAW Edite d Result - Final [facility] [place] [address] [place] [address] [facility] [place] [address] [place] [address] * HIV-1 RNA QUANT REAL TIME PCR, PLASMA (06/27/2023 11:21 AM CUSTOMER CARE REPRESENTATIVE) COPIES/ML NOT DETECTED NOT DETECTED copies/mL [facility] LOG COPIES/ML NOT DETECTED NOT DETECTED Log copies/mL [facility] Comment: This test was performed using Real-Time Polymerase Chain Reaction. Reportable Range: 20 copies/mL to 10,000,000 copies/mL (1.30 log copies/mL to 7.00 log copies/mL). Blood Blood / Unknown 06/27/2023 1 1:21 AM CUSTOMER CARE REPRESENTATIVE 06/28/2023 3:06 AM CUSTOMER CARE REPRESENTATIVE Mady Sullivan MD LAB - BLOOD DRAW Edite d Result - Final [facility] [place] [address] [place] [address], [employer] [facility] [address] [place] [address] * (ABNORMAL) COMPREHENSIVE METABOLIC PANEL (06/27/2023 11:21 AM CUSTOMER CARE REPRESENTATIVE) Pathologist [facility] GLUCOSE 67 65 - 99 mg/dL [facility] Comment: ? Fasting reference interval UREA NITROGEN (BUN) 13 7 - 25 mg/dL [facility] CREATININE (blood) 0.94 0.60 - 1.24 mg/dL [facility] EGFR 113 > OR = 60 mL/min/1. 73m2 [facility] BUN/CREATININE RATIO SEE NOTE: 6 (calc) [facility] Comment: ?? Not Reported: BUN and Creatinine are within ?? reference range. ? SODIUM 138 135 - 146 mmol/L [facility] POTASSIUM 5.0 3.5 - 5.3 mmol/L [facility] CHLORIDE 104 98 - 110 mmol/L [facility] CARBON DIOXIDE 23 20 - 32 mmol/L [facility] CALCIUM 9.8 8.6 - 10.3 mg/dL [facility] PROTEIN, TOTAL 8.4(H) 6.1 - 8.1 g/dL [facility] ALBUMIN 4.3 3.6 - 5.1 g/dL [facility] GLOBULIN 4.1(H) 1.9 - 3.7 g/dL (calc) [facility] ALBUMIN/GLOBULI N RATIO 1.0 1.0 - 2.5 (calc) [facility] BILIRUBIN, TOTAL 0.4 0.2 - 1.2 mg/dL [facility] ALKALINE PHOSPHATASE 81 36 - 130 U/L [facility] AST 15 10 - 40 U/L [facility] ALT 15 9 - 46 U/L [facility] Blood Blood / Unknown 06/27/2023 1 1:21 AM CUSTOMER CARE REPRESENTATIVE 06/28/2023 3:06 AM CUSTOMER CARE REPRESENTATIVE Mady Sullivan MD LAB - BLOOD DRAW Edite d Result - Final [facility] [place] [address] [place] [address], [email or web address] [address] [place] [address] * (ABNORMAL) BLOOD COUNT COMPLETE AUTO&AUTO DIFRNTL WBC (06/27/2023 11:21 AM CUSTOMER CARE REPRESENTATIVE) WHITE BLOOD CELL COUNT 3.6(L) 3.8 - 10.8 Thousand/ uL [facility] RED BLOOD CELL COUNT 5.48 4.20 - 5.80 Million/u L [facility] HEMOGLOBIN 14.2 13.2 - 17.1 g/dL [facility] HEMATOCRIT 44.3 38.5 - 50.0 % [facility] MCV 80.8 80.0 - 100.0 fL [facility] MCH 25.9(L) 27.0 - 33.0 pg [facility] MCHC 32.1 32.0 - 36.0 g/dL [facility] RDW 14.9 11.0 - 15.0 % [facility] PLATELET COUNT 326 140 - 400 Thousand/ uL [facility] MPV 10.9 7.5 - 12.5 fL [facility] ABSOLUTE NEUTROPHILS 1,120(L) 1,500 - 7,800 cells/uL [facility] ABSOLUTE LYMPHOCYTES 2,016 850 - 3,900 cells/uL [facility] ABSOLUTE MONOCYTES 288 200 - 950 cells/uL [facility] ABSOLUTE EOSINOPHILS 137 15 - 500 cells/uL [facility] ABSOLUTE BASOPHILS 40 0 - 200 cells/uL [facility] NEUTROPHILS PCT 31.1 % [facility] LYMPHOCYTES 56.0 % [facility] MONOCYTES 8.0 % [facility] EOSINOPHILS 3.8 % [facility] BASOPHILS 1.1 % [facility] ABSOLUTE BAND NEUTROPHILS CANCELED [facility] Comment:Result canceled by t he ancillary. ABSOLUTE METAMYELOCYTES CANCELED [facility] Comment:Result canceled by t he ancillary. ABSOLUTE MYELOCYTES CANCELED [facility] Comment:Result canceled by t he ancillary. ABSOLUTE PROMYELOCYTES CANCELED [facility] Comment:Result canceled by t he ancillary. ABSOLUTE BLASTS CANCELED [facility] Comment:Result canceled by t he ancillary. ABSOLUTE NUCLEATED RBC CANCELED [facility] Comment:Result canceled by t he ancillary. BAND NEUTROPHILS CANCELED [facility] Comment:Result canceled by t he ancillary. METAMYELOCYTES CANCELED [facility] Comment:Result canceled by t he ancillary. MYELOCYTES CANCELED [facility] Comment:Result canceled by t he ancillary. PROMYELOCYTES CANCELED [facility] Comment:Result canceled by t he ancillary. REACTIVE LYMPHOCYTES CANCELED [facility] Comment:Result canceled by t he ancillary. BLASTS CANCELED [facility] Comment:Result canceled by t he ancillary. NUCLEATED RBC CANCELED [facility] Comment:Result canceled by t he ancillary. COMMENT(S) CANCELED [facility] Comment:Result canceled by t he ancillary. Blood Blood / Unknown 06/27/2023 1 1:21 AM CUSTOMER CARE REPRESENTATIVE 06/28/2023 3:48 AM CUSTOMER CARE REPRESENTATIVE us Mady Sullivan MD LAB - BLOOD DRAW Edite d Result - Final [facility] [address] [address], [facility] [place] [address] [address] [address] documented in this encounter Visit Diagnoses Diagnosis Human immunodeficiency virus (HIV) disease (HCC-CMS)- Primary Human immunodeficiency virus [HIV] disease Screening examination for STD (sexually transmitted disease) Screening examination for venereal disease Need for hepatitis C screening test Special screening examination for other specified viral diseases Erectile dysfunction, unspecified erectile dysfunction type Lipid screening Screening for lipoid disorders Need for jznsbfcorp-iandift-jbyxprvve (Tdap) vaccine Need for prophylactic vaccination with combined nvcbktcton-nvqiigw-johfxqqbk (DTP) vaccine Need for HPV vaccination Need for prophylactic vaccination and inoculation against other viral diseases Right foot drop Other acquired deformity of ankle and foot Anxiety Anxiety state, unspecified Unilateral inguinal hernia with obstruction and without gangrene, recurrence not specified Condyloma Condyloma acuminatum Bipolar 2 disorder (HCC-CMS) Other bipolar disorders documented in this encounter Additional Health Concerns Assessment Noted Time PHQ-9 Depression Total Score: 6 12/06/19 23 12:00 PM PDT documented as of this encounter Care Teams 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
--- OUTSIDE RECORDS SUMMARY | 2024-08-10 03:27 | XMS_ITS | Encounter Summary ---
Author Organization [facility] Address [address] [place] [address] Care Team Providers Care Field Checker Name Role Phone Mady Sullivan MD Primary Care Provider Reason for Referral * Neurology (Routine) - Closed Specialty Diagnoses / Procedures Referred By Contac t Referred To Contact Neurology Diagnoses 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[facility]) Mady Sullivan MD [address] [place] [address] Phone: tel: fax: Referral ID Status Reason Start Date Expiration Date V isits Requested Visits Authorized [id number] Closed Specialty Services Required 11/02/2023 11/01/2024 1 1 Comments 28 year old man with well controlled HIV, severe depression/bipolar with close management, methamphetamine use disorder newly in remission (in recovery program) with recent hospitalization (10/09- 10/25) for probable neurosyphilis. He has prior history of transverse myelitis (attributed to HIV) with related foot drop. He presented to for hospitalization with BAY, dizziness, emesis, LBP and worsening RLE. Clinically he has paresthesias over his LE and foot drop, unclear if exam is worse. CT Head no acute process, but significant progression of cerebral atropy with ex vacuo dilatation from 2018 MRI T/L spine. CT temporal bone 10/10 with dehiscence of bilateral sigmoid plates. MRI IAC 10/13/23: punctate focus of restricted diffusion in the left temporal lobe, possible HIV encephalopathy. LP 10/12/23: HSV neg, bacterial cx/gram stain neg, crypto neg, fungal neg; VDRL neg. Serum RPR went from 1:32 to 1:64 in 2 weeks (prior treatment a year ago s/p bicillin x 3). In patient clinician noted some nerve root enhancement at the cauda equina level. Request for evaluation and possible movement disorder appointment. Re-establishing care with PT Reason for Visit * Reason Comments HIV Follow Up Encounter Details Date Type Department Care Team (Latest Contact Info) Description 11/02/2023 9:00 AM CDT Office Visit [email or web address] [address] [place] [phone] Mady Sullivan MD [address] [place] [phone] Human immunodeficiency virus (HIV) disease (HCC-CMS) (Primary Dx); Need for HPV vaccination; Need for meningitis vaccination; Screening examination for STD (sexually transmitted disease); 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HCC-CMS); Neurosyphilis; Major depressive disorder, recurrent episode, moderate (HCC-CMS); Bipolar 2 disorder (HCC-CMS); Methamphetamine use disorder, severe, in early remission (HCC-CMS); Tobacco use; Microcytosis; Condyloma Social History Tobacco Use Types Packs/Day Years Used Date Smoking Tobacco: Never Smokeless Tobacco: Never Tobacco Cessation:Counseling Given: Not Answered Alcohol Use Standard Drinks/Week Comments Yes 0 [...] Sign Reading Time Taken Comments Blood Pressure 143/83 11/02/2023 9:17 AM CDT Pulse 80 11/02/2023 9:17 AM CDT Temperature 36.9 ??C (98.5 ??F) 11/02/2023 9:17 AM CD T Respiratory Rate 18 11/02/2023 9:17 AM CDT Oxygen Saturation 98% 11/02/2023 9:17 AM CDT Inhaled Oxygen Concentration - - Weight 85.5 kg (188 lb 9.6 oz) 11/02/2023 9:17 A M CDT Height 182.9 cm (6') 11/02/2023 9:17 AM CDT Body Mass Index 25.58 11/02/2023 9:17 AM CDT documented in this encounter Progress Notes * Mady Sullivan MD - 11/02/2023 9:00 AM CDT Images from the original note were not included. HPI: Phil Chase is a 28 year old male with history of HIV infection who presents to [facility] clinic for routine + hospital follow-up. Patient was last seen in clinic on 06/27/23. 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 CT temporal bone 10/10 with dehiscence of bilateral sigmoid plates. MRI IAC 10/13/23: punctate focus of restricted diffusion in the left temporal lobe, possible HIV encephalopathy. - LP 10/12/23: HSV neg, bacterial cx/gram stain neg, crypto neg, fungal neg; VDRL neg - per opthal, finding of horseshoe tears, no evidence of intraocular inflammation/infection, plan for laser repair outpatient - Was noted to have decreased hearing in patient; per ENT, no acute interventions this admission, rec outpatient follow up with audiogram - s/p Penicillin IV treatment 10/10 - 10/23, advised to abstain from sex for 10 days (~11/02) Interim - no BAY, dizziness, emesis, BP. No sense of vision change or hearing change - no rashes or sores that he has noticed HIV - well controlled on Biktarvy with continued CD4 recovery (off Bactrim prophy now) - 10/11/23 CD4: 237 Anal condyloma - reporting some bleeding, hasn't seen colorectal yet Depression/anxiety/bipolar/history of trauma - history of SI, plan and attempts with multiple hospitalization c/o methamphetamines - currently in recovery with close support - feeling stable right now, but notes since stopping meth use he has felt very up and down - medications changed during hospitalization then emergency fill at [facility] after discharge- per CM and patient, regimen changed. Abilify 5mg -> doubled? Doxepin 25 mg qhs Cymbalta 60 mg Hydroxyzine 25mg q4 prn -> doubled? Substance use - methamphetamine use disorder with IVDU: currently in remission and recovery program R. Inguinal Hernia s/p repair in 04/19 - no issues History of transverse myelitis with residual RLE weakness, foot drop, RLE parasthesia on gabapentin - did follow up with PT and got orthotics for Foot drop but not followed up recently - unclear if worse from baseline Other issues not addressed today ED Elevated testosterone Habits: - STI screen- interested in testing, has had multiple partners - tobacco 3 cigarettes, interested in quitting - no etoh or other substances, in sobriety SH - living in acute recovery unit, then transitioning to sober living for 6 months Follow up monthly Microcytosis Allergies: No Known Allergies Medications: Current Outpatient Medications Medication Sig Dispense Refill ucwjnqjkj-ruyghgsp-zxraqhk ala (BIKTARVY) 50-200-25 mg tab Take 1 tablet by mouth once daily 30 Tablet 2 DULoxetine (CYMBALTA) [address] capsule Take 60 mg by mouth daily lidocaine (LIDODERM) 5 % patch Place 1 Patch onto the skin nicotine, polacrilex, (NICORETTE) 2 mg gum Take 2 mg by mouth traZODone (DESYREL) 50 mg tablet Take 50 mg by mouth ARIPiprazole (ABILIFY) 5 mg tablet TAKE ONE TABLET BY MOUTH ONCE DAILY 30 Tablet 0 sertraline (ZOLOFT) 100 mg tablet Take 1 tablet (100 mg) by mouth daily 30 Tablet 0 hydrOXYzine HCL (ATARAX) 50 mg tablet Take 50 mg by mouth every 6 (six) hours as needed doxepin (SINEQUAN) 25 mg capsule Take 1 Capsule (25 mg) by mouth nightly as needed for Insomnia. 30Capsule 0 mirtazapine (REMERON) 45 mg tablet Take 45 mg by mouth acetaminophen (TYLENOL) 325 mg tablet Take 2 (two) tablets by mouth every 6 hours as needed for Pain Maximum allowable Acetaminophen amount = 4 Grams (4000 mg) / 24 hours. 30 Tablet 0 ibuprofen 600 mg tablet Take 1 Tablet by mouth every 6 (six) hours as needed FOR PAIN 30 Tablet 0 triamcinolone (KENALOG) 0.1 % ointment Apply topically 2 (two) times daily 80 g 1 No current facility-administered medications for this visit. Review of Systems: General: no unexplained weight loss, night sweats and fever Skin: no rash, ulcers and lesions Mouth: has some broken teeth; gum disease, ulcers, oral lesions and pain Cardiopulmonary: no chest pain, shortness of breath and palpitations Gastrointestinal: +loose stools x 2d, <3/day; no nausea and abdominal pain Genitourinary: no dysuria and urethral discharge or lesions Physical Exam: Vitals: Last 3 Vitals Flowsheet Row Office Visit from 11/02/2023 in [facility] Office Visit from 08/29/2023 in [facility] Office Visit from 08/22/2023 in [facility] Temp 98.5 ??F (36.9 ??C) 97.6 ??F (36.4 ??C) 97.9 ??F (36.6 ??C) Pulse 80 62 47 BP 143/83 120/78 141/94 Resp 18 -- -- Weight 188 lb 9.6 oz (85.5 kg) -- -- Exam: Gen: well appearing, comfortable, nad but pressured affect/tics HENT: EOMI, no conjunctival injection, no o/p lesions, no cervical LAD Card: RRR no m/r/g Pulm: CTAB Abd: soft nontender nondistended, no hsm appreciated Rectal exam: 1.5 cm verucous lesion in superior portion Extremities: no peripheral edema, warm, well perfused Laboratory Data: Routine: Latest Ref Rng & Units 06/27/2023 11:21 AM 03/21/2023 3:23 PM 12/05/2022 11:41 AM HIV HIV Viral Load NOT DETECTED copies/mL NOT DETECTED <20 DETECTED 50 Latest Ref Rng & Units 06/27/2023 11:21 AM 03/21/2023 3:23 PM 12/05/2022 11:41 AM CBC White blood cell count 3.8 - 10.8 Thousand/uL 3.6 3.8 4.4 Hemoglobin 13.2 - 17.1 g/dL 14.2 15.1 13.9 Hematocrit 38.5 - 50.0 % 44.3 46.6 46.2 Platelets 140 - 400 Thousand/uL 326 529 398 Latest Ref Rng & Units 06/27/2023 11:21 AM 03/21/2023 3:23 PM 12/05/2022 11:41 AM Liver Enzymes AST 10 - 40 U/L 15 16 14 ALT 9 - 46 U/L 15 20 13 Alk phos 36 - 130 U/L 81 80 90 Bilirubin total 0.2 - 1.2 mg/dL 0.4 0.4 0.4 Latest Ref Rng & Units 06/27/2023 11:21 AM 03/21/2023 3:23 PM 12/05/2022 11:41 AM Creatinine Creatinine 0.60 - 1.24 mg/dL 0.94 1.02 0.94 Annuals: Lab Results Component Value Date QUANTIFERON NEGATIVE 03/21/2023 Lab Results Component Value Date HEPCABQL NON-REACTIVE 06/27/2023 Lab Results Component Value Date HGBA1C 5.2 08/03/2023 Lab Results Component Value Date CHOL 163 06/27/2023 HDL 49 06/27/2023 LDL 99 06/27/2023 TRIGLYC 66 06/27/2023 Lab Results Component Value Date URPROT 1+ (A) 10/08/2020 URGLUC NEGATIVE 10/08/2020 No results found for: [id number] Lab Results Component Value Date HEPAABQL REACTIVE (A) 10/08/2020 HBSAB NON-REACTIVE 10/08/2020 HBSAGQL NON-REACTIVE 10/08/2020 Lab Results Component Value Date HEPCABQL NON-REACTIVE 06/27/2023 STI: Lab Results Component Value Date RPR REACTIVE (A) 06/27/2023 RPR REACTIVE (A) 03/21/2023 RPR REACTIVE (A) 12/05/2022 Lab Results Component Value Date CHLAMYDIA NOT DETECTED 06/27/2023 CHLAMYDIA NOT DETECTED 03/21/2023 CHLAMYDIA NOT DETECTED 12/05/2022 CHLAMPHARYNG NOT DETECTED 06/27/2023 CHLAMPHARYNG NOT DETECTED 03/21/2023 CHLAMPHARYNG NOT DETECTED 12/05/2022 CHLAMANAL NOT DETECTED 06/27/2023 CHLAMANAL NOT DETECTED 03/21/2023 CHLAMANAL DETECTED (A) 12/05/2022 GC NOT DETECTED 06/27/2023 GC NOT DETECTED 03/21/2023 GC NOT DETECTED 12/05/2022 GCPHARYNG NOT DETECTED 06/27/2023 GCPHARYNG NOT DETECTED 03/21/2023 GCPHARYNG NOT DETECTED 12/05/2022 GCANAL NOT DETECTED 06/27/2023 GCANAL NOT DETECTED 03/21/2023 GCANAL NOT DETECTED 12/05/2022 Immunization History Administered Date(s) Administered DTAP 1993, 02/23/1994, 05/18/1994, 04/05/1995, 10/15/1998 Flu, Preservative Free 06/17/2023 HPV 9 03/21/2023, 06/27/2023 Hep A, Ped/adol, 2 Dose 10/05/2005 Hep B, Adult/Adol (ENERGIX/RECOMBIVAX) 08/06/2019, 10/24/2023 Hep B, Unspecified 01/05/1994, 04/10/1994, 09/22/1998 Hib (PRP-T) 1993, 02/23/1994, 05/18/1994, 04/05/1995 IPV 02/05/2003 MENINGOCOCCAL MCV4P (MENACTRA) 10/05/2005 MMR (MMR II/Priorix) 10/19/1994, 10/15/1998 OPV, Trivalent 1993, 02/23/1994, 05/18/1994 PNEUMOCOCCAL CONJUGATE PCV 13 08/06/2019 PNEUMOCOCCAL POLYSACCHARIDE PPV23 08/06/2019 POLIO, UNSPECIFIED 11/18/1996 Pfizer-Butter[employer]leye IncNTTournEase COVID-19 Vaccine Bivalent, (RENEE PFIZER-BIONTECH COVID-19 VACCINE BIVALENT, (RENEE CAP 07/12/2022 TDAP 06/27/2023 Varicella, Live Vaccine 11/18/1996 Pended Date(s) Pended HPV 9 11/02/2023 MENINGOCOCCAL MCV4O (MENVEO) 11/02/2023 Problem List: Patient Active Problem List Diagnosis Human immunodeficiency virus (HIV) disease (HCC-CMS) Neurosyphilis Right foot drop 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HCC-CMS) Anal warts HSV infection Anal fistula Bipolar disorder, current episode mixed, moderate (HCC-CMS) Condyloma RENEE (generalized anxiety disorder) Inguinal hernia Major depressive disorder, recurrent episode, moderate (HCC-CMS) Bipolar disorder, current episode depressed, severe (HCC-CMS) Bipolar I disorder with depression (HCC-CMS) Severe depressed bipolar I disorder without psychotic features (HCC-CMS) Acute stress disorder Bipolar I disorder (HCC-CMS) Bipolar I disorder, most recent episode (or current) depressed, severe, specified as with psychoticbehavior (HCC-CMS) Bipolar 2 disorder (HCC-CMS) Assessment/Plan: Phil was seen today for hiv and follow up. Diagnoses and all orders for this visit: Human immunodeficiency virus (HIV) disease (HCC-CMS) - well controlled viral load & CD4 >200 on Biktarvy since February, - endorses good tolerance and adherence of meds - BLOOD COUNT COMPLETE AUTO&AUTO DIFRNTL WBC - HIV-1 RNA QUANT REAL TIME PCR, PLASMA Screening examination for STD (sexually transmitted disease) - C TRACHOMATIS/N GONORRHOEAE RNA,TMA - CHLAMYDIA/GONORRHOEAE RNA, TMA, THROAT - CHLAMYDIA/GONORRHEA, RNA TMA, RECTAL Neurosyphilis - see details above, possible optho-,otosyphilis - elevated RPR, LP neg for VDRL, probable clinical diagnosis - s/p Penicillin IV treatment 10/10 - 10/23 - patient reports being asymptomatic currently - AUDIOGRAM - referral - NEUROLOGY referral - complex findings on imaging - repeat RPR next visit - repeat LP in 6 months (~April 2024) 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[facility]) - attributed previously HIV - unclear if foot drop/RLE neuro symptoms worse from baseline - multiple abormal imaging findings in hospital including left temporal lobe restricted diffusion (CSF HSV neg, possibly HIV encephalopathy), increased cerebral atrophy, and question of enhancement (not formal radiologic read but of concern) with recommendation to follow up with neurology possibly movement clinic - follow up again with PT. - REFERRAL TO NEUROLOGY Condyloma - has symptoms of bleeding - completing HPV vaccine series today - provided number for colorectal surgery again Major depressive disorder, recurrent episode, moderate ([facility]) Bipolar 2 disorder ([facility]) - awaiting clarification on new medication regimen: Abilify 5mg -> doubled? Doxepin 25 mg qhs Cymbalta 60 mg Hydroxyzine 25mg q4 prn -> doubled? Will fill once we clarify Methamphetamine use disorder, severe, in early remission ([facility]) - engaged in outpatient support/recovery Tobacco use - interested in quitting, will follow up Not addressed today, follow up next visit Microcytosis - needs iron studies Elevated testosterone - ask: symptoms of hyperandrogenism (acne, hair loss, potential predatory animal exterminator effects), has he been told this before, question whether any exogenous steroids or testosterone. Prolactin if still elevated Ophthalmology findings - horshoe tears noted, needs lazer surgery, will send referral next visit Incidental Liver Lesion - asymptomatic need plan for monitoring HCM Need for HPV vaccination - IM ADM PRQ ID SUBQ/IM NJXS 1 VACCINE Need for meningitis vaccination - IM ADM PRQ ID SUBQ/IM NJXS EA VACCINE - 9VHPV VACC 2/3 DOSE SCHED IM USE - MENINGOCOCCAL (GRP A,C,Y,W-135) OLIGOSACCHARIDE DIPHTHERIA [id number] CONJ - ETOH/drug screen - Needs hep b #2 next time Follow Up: 1 month Total time spent today on today's visit including both face to face time and non-face to face time personally spent on history taking and exam, review of labs, medications, care gaps, and informationin CareEverywhere, discussing labs, treatment plans, goals, and referrals to specialists if needed,and answering patient's questions and coordinating care: 67 minutes documented in this encounter Miscellaneous Notes * Result Encounter Note - Mady Sullivan MD - 11/13/2023 4:53 PM CDT CBC mostly normal (previously noted microcytosis resolved) GC x 2 neg VL ND * Patient Instructions - Mady Sullivan MD - 11/02/2023 9:28 AM CDT (1) Call colorectal surgery Colorectal surgery [facility] [phone] F [phone] (2) Follow up with Neurology ([facility] will provide number) (3) [place] [address] documented in this encounter Plan of Treatment Scheduled Orders Name Type Priority Associated Diagnoses Orde r Schedule C TRACHOMATIS/N GONORRHOEAE RNA,TMA Lab Routine Screening examination for STD (sexually transmitted disease) Ordered: 11/02/2023 Scheduled Referrals Name Type Priority Associated Diagnoses Orde r Schedule REFERRAL TO NEUROLOGY Referral Routine 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[facility]) Ordered: 11/02/2023 documented as of this encounter Procedures Procedure Name Priority Date/Time Associated Diagnosis Comments CHLAMYDIA/GONORRH OEAE RNA, TMA, THROAT Routine 11/02/2023 10:10 AM CDT Screening examination for STD (sexually transmitted disease) CHLAMYDIA/GONORRH EA, RNA TMA, RECTAL Routine 11/02/2023 10:10 AM CDT Screening examination for STD (sexually transmitted disease) HIV-1 RNA QUANT REAL TIME PCR, PLASMA Routine 11/02/2023 10:04 AM CDT Human immunodeficiency virus (HIV) disease ([facility]) BLOOD COUNT COMPLETE AUTO&AUTO DIFRNTL WBC Routine 11/02/2023 10:04 AM CDT Human immunodeficiency virus (HIV) disease ([facility]) documented in this encounter Results * CHLAMYDIA/GONORRHEA, RNA TMA, RECTAL (11/02/2023 10:10 AM CDT) CHLAMYDIA TRACHOMATIS RNA, TMA, RECTAL NOT DETECTED [facility] [place] GONORRHOEAE RNA, TMA, RECTAL NOT DETECTED [facility] Comment: REFERENCE RANGE: ??NOT DETECTED Methodology: ??[employer] S[employer] Mediated Amplification (TMA) to detect RNA. The analytical performance characteristics of this assay have been determined by [employer]. The modifications have not been cleared or approved by the FDA. This assay has been validated pursuant to the CLIA regulations and is used for clinical purposes. Swab Specimen from rectum / Unknown 11/02/2023 10:10 AM CDT 11/02/2023 10:11 AM CDT Mady Sullivan MD LAB - NO BLOOD DRAW Ed ited Result - Final [employer] [place] [address] [place] [address] [facility] [address] [place] [address] * CHLAMYDIA/GONORRHOEAE RNA, TMA, THROAT (11/02/2023 10:10 AM CDT) Pathologist [facility] CHLAMYDIA TRACHOMATIS RNA, TMA, THROAT NOT DETECTED [facility] [place] GONORRHOEAE RNA, TMA, THROAT NOT DETECTED [facility] Comment: REFERENCE RANGE: ??NOT DETECTED Methodology: ??[employer] S[employer] Leveler Mediated Amplification (TMA) to detect RNA. The analytical performance characteristics of this assay have been determined by [facility]. The modifications have not been cleared or approved by the FDA. This assay has been validated pursuant to the CLIA regulations and is used for clinical purposes. For additional information, please refer to https://education.PubNub/faq/ETJ597 (This link is being provided for informational/educational purposes only.) Swab Structure of anterior portion of neck / Unknown 11/02/2023 10:10 AM CDT 11/02/2023 10:11 AM CDT Mady Sullivan MD LAB - NO BLOOD DRAW Ed ited Result - Final [facility] [address] [place] [address] [facility] [address] [place] [address] * HIV-1 RNA QUANT REAL TIME PCR, PLASMA (11/02/2023 10:04 AM CDT) Pathologist [facility] COPIES/ML NOT DETECTED NOT DETECTED copies/mL [facility] [place] LOG COPIES/ML NOT DETECTED NOT DETECTED Log copies/mL [facility] Comment: This test was performed using Real-Time Polymerase Chain Reaction. Reportable Range: 20 copies/mL to 10,000,000 copies/mL (1.30 log copies/mL to 7.00 log copies/mL). Blood Blood / Unknown 11/02/2023 1 0:04 AM CDT 11/03/2023 5:43 AM CDT us Mady Sullivan MD LAB - BLOOD DRAW Edite d Result - Final [facility] [place] [id number] [address] [address], [facility] [place] [address] [address] [place], [place] [address] * (ABNORMAL) BLOOD COUNT COMPLETE AUTO&AUTO DIFRNTL WBC (11/02/2023 10:04 AM CDT) Pathologist [facility] WHITE BLOOD CELL COUNT 3.8 3.8 - 10.8 Thousand/ uL [facility] RED BLOOD CELL COUNT 5.63 4.20 - 5.80 Million/u L [facility] HEMOGLOBIN 14.7 13.2 - 17.1 g/dL [facility] [place] HEMATOCRIT 45.8 38.5 - 50.0 % [facility] MCV 81.3 80.0 - 100.0 fL [facility] [place] MCH 26.1(L) 27.0 - 33.0 pg [facility] [place] MCHC 32.1 32.0 - 36.0 g/dL [facility] [place] RDW 15.4(H) 11.0 - 15.0 % [facility] [place] PLATELET COUNT 379 140 - 400 Thousand/ uL [facility] [place] MPV 10.5 7.5 - 12.5 fL [facility] [place] ABSOLUTE NEUTROPHILS 1,721 1,500 - 7,800 cells/uL [facility] [place] ABSOLUTE LYMPHOCYTES 1,661 850 - 3,900 cells/uL [facility] [place] ABSOLUTE MONOCYTES 308 200 - 950 cells/uL [facility] [place] ABSOLUTE EOSINOPHILS 80 15 - 500 cells/uL [facility] [place] ABSOLUTE BASOPHILS 30 0 - 200 cells/uL [facility] [place] NEUTROPHILS PCT 45.3 % [facility] [place] LYMPHOCYTES 43.7 % [facility] [place] MONOCYTES 8.1 % [facility] [place] EOSINOPHILS 2.1 % [facility] [place] BASOPHILS 0.8 % [facility] [place] ABSOLUTE BAND NEUTROPHILS CANCELED [facility] [place] Comment:Result canceled by t janusz ancillary. ABSOLUTE METAMYELOCYTES CANCELED [facility] [place] [...] t he ancillary. Blood Blood / Unknown 11/02/2023 1 0:04 AM CDT 11/03/2023 3:27 AM CDT Mady Sullivan MD LAB - BLOOD DRAW Edite d Result - Final [facility] [place] [address] [address] [facility] [place] [address], [employer] [place] [address] [address] [facility] [place] [address] documented in this encounter Visit Diagnoses Diagnosis Human immunodeficiency virus (HIV) disease (HCC-CMS)- Primary Human immunodeficiency virus [HIV] disease Need for HPV vaccination Need for prophylactic vaccination and inoculation against other viral diseases Need for meningitis vaccination Screening examination for STD (sexually transmitted disease) Screening examination for venereal disease 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HCC-CMS) Other causes of myelitis Neurosyphilis Major depressive disorder, recurrent episode, moderate (HCC-CMS) Major depressive disorder, recurrent episode, moderate Bipolar 2 disorder (HCC-CMS) Other bipolar disorders Methamphetamine use disorder, severe, in early remission ([facility]) Tobacco use Tobacco use disorder Microcytosis Other abnormality of red blood cells Condyloma Condyloma acuminatum documented in this encounter Additional Health Concerns Assessment Noted Time PHQ-9 Depression Total Score: 6 12/06/19 23 12:00 PM PDT documented as of this encounter Care Teams Field Checker Relationship Specialty Start Date End Date Mady Sullivan MD [address] [place] [id number] PCP - General Infectious Diseases 12/22/22 documented as of this encounter
--- OUTSIDE RECORDS SUMMARY | 2024-08-10 03:27 | XMS_ITS | Encounter Summary ---
Author Organization [facility] Address [address] [place] [address] Care Team Providers Care Teaching Associate Name Role Phone Mady Sullivan MD Primary Care Provider Reason for Visit * Reason Comments STI Treatment Bicillin #2 Encounter Details Date Type Department Care Team (Late st Contact Info) Description 12/22/2022 9:30 AM CDT Office Visit [address] [id number] Bhaskar Gant [address] [place] [address] [id number] Syphilis (Primary Dx) Social History Tobacco Use Types [...] AM CDT documented as of this encounter Progress Notes * Bhaskar Gant - 12/22/2022 10:12 AM CDT Patient presents to clinic for treatment of Syphilis. Administered Bicillin 2.4mil units IM x 1 into left glute. Dose 2 of 3. Patient expressed uncomfortableness with injection but was tolerable. Received first dose of 2.4mil Bic at [facility] on 12/14/22 per notes in Epic. Instructed to refrain from any sexual contact for 7 days after final dose Pt to return to clinic in 1 week for dose #3. Currently scheduled for 12/29/2022. documented in this encounter Plan of Treatment Not on file documented as of this encounter Visit Diagnoses Diagnosis Syphilis- Primary Syphilis, unspecified documented in this encounter Administered Medications Inactive Administered Medications - up to 3 most recent administrations Medication Order MAR Action Action Date Dose Rate Site Bicillin L-A 2,400,000 unit/4 mL injection (penicillin G benzathine) 2,400,000 Units, intramuscular, Weekly, First dose on Sun12/22/22 at 1000, For 2 dosesIndications:Syph ilis Given 12/29/2022 10:06 AM CDT 2,400,000 Units Left Upper Quad, Gluteus Given 12/22/2022 9:48 AM CDT 2,400,000 Units Left Upper Quad, Gluteus documented in this encounter Additional Health Concerns Assessment Noted Time PHQ-9 Depression Total Score: 6 12/06/19 12:00 PM PDT documented as of this encounter Care Teams Teaching Associate Relationship Specialty Start Date End Date Mady Sullivan MD [address] [place], [place] [id number] PCP - General Infectious Diseases 12/22/22 documented as of this encounter
--- OUTSIDE RECORDS SUMMARY | 2024-08-10 03:27 | XMS_ITS | Encounter Summary ---
Author Organization [facility] Address [address] [place] [address] Care Team Providers Care Tooling Manager Name Role Phone Mady Sullivan MD Primary Care Provider Encounter Details Date Type Department Care Team (Latest Contact Info) Description 12/29/2022 Travel Social History Tobacco Use Types Packs/Day [...] suspected to have Coronavirus/COVID-19? No / Unsure 12/29/2022 9:50 AM CDT documented as of this encounter Plan of Treatment Not on file documented as of this encounter Visit Diagnoses Not on filedocumented in this encounter Additional Health Concerns Assessment Noted Time PHQ-9 Depression Total Score: 12/06/19 12:00 PM PDT documented as of this encounter Care Teams Tooling Manager Relationship Specialty Start Date End Date Mady Sullivan MD [address] [place] [id number] PCP - General Infectious Diseases 12/22/22 documented as of this encounter
--- OUTSIDE RECORDS SUMMARY | 2024-08-10 03:27 | XMS_ITS | Encounter Summary ---
Author Organization [facility] Address [address] [place] [address] Care Team Providers Care Copy Cutter Name Role Phone Mady Sullivan MD Primary Care Provider Reason for Referral * General Surgery (Routine) - Closed Specialty Diagnoses / Procedures Referred By Ara t Referred To Contact Diagnoses Condyloma Mady Sullivan MD [address] [place] [phone] Phone: tel: fax: Referral ID Status Reason Start Date Expiration Date V isits Requested Visits Authorized [id number] Closed Specialty Services Required 03/21/2023 03/19/2028 1 1 Comments 27 year old man with advanced HIV (CD4<200) and improving viral control on meds has history of anal condyloma seen previously at [facility] colorectal surgery with successful exision/fulguration now with recurrent condyloma referral to evaluate and treat as indicated Reason for Visit * Reason Comments HIV Follow Up Encounter Details Date Type Department Care Team (Latest Contact Info) Description 03/21/2023 2:30 PM CDT Office Visit AMT [address] [place] [phone] Mady Sullivan MD [address] [place] [phone] Human immunodeficiency virus (HIV) disease ([facility]) (Primary Dx); History of syphilis; Screening examination for STD (sexually transmitted disease); Genital lesion, male; Need for HPV vaccination; Condyloma; Microcytosis; Unilateral inguinal hernia with obstruction and without gangrene, recurrence not specified Social History Tobacco Use Types Packs/Day Years [...] Sign Reading Time Taken Comments Blood Pressure 104/62 03/21/2023 2:43 PM CDT Pulse 97 03/21/2023 2:43 PM CDT Temperature 36.3 ??C (97.4 ??F) 03/21/2023 2:43 PM CD T Respiratory Rate - - Oxygen Saturation 97% 03/21/2023 2:43 PM CDT Inhaled Oxygen Concentration - - Weight 75.3 kg (166 lb) 03/21/2023 2:43 PM CDT Height - - Body Mass Index 22.51 12/05/2022 10:44 AM CDT documented in this encounter Progress Notes * Mady Sullivan MD - 03/21/2023 2:30 PM CDT Images from the original note were not included. HPI: Phil Chase is a 27 year old male with history of HIV infection who presents to [email or web address] for routine follow-up. Patient was last seen in clinic on 12/05/22. Lab Results Component Value Date CD4 202 (L) 03/21/2023 CD4 120 (L) 12/05/2022 CD4 148 (L) 10/08/2020 Lab Results Component Value Date COPIESML <20 DETECTED (A) 03/21/2023 COPIESML 50 (H) 12/05/2022 COPIESML 355,000 (H) 10/08/2020 Interim: Inguinal hernia repair cancelled for low CD4, surgeon requiring sustained > 200 x 2 tests beforeschedule. Patient is motivated reports being meticulous about his medications. He is ready to get the surgery as soon as he can. HIV Last visit, re-establishing care after having moved to [place]. Improved control on Biktarvy last visit, had started 1 month prior to testing and VL down to 50. Advanced HIV also on Bactrim, I take iteveryday, doc! Right Inguinal Hernia - surgical repair was cancelled for CD4 < 200 Requiring 2x measures of cd4 >200 Persistent symptoms, skin breakdown previously noted, he tries to provide local care, has a lesion on his penis where it is in contact with scrotum Chlamydia last visit, completed doxycycline course without issue Interested in 3 site testing Only symptom is lesion mentioned above, but he thinks its more like contact irritation because of marked scrotal swelling History of Syphilis - completed 3 shots of bicillin: 12/14 in [facility] 12/22 here 12/29 here Denies prior treatment but looks like there was a prior high titer in care everywhere in 2018 Was living in [place], [place] 05/2021 - 02/2023 - but did not get testing or treatment there Anal condyloma s/p surgery Last visit resolution without issue -> now recurrent No bleeding or pain but can feel it has returned, interested in going back for procedure Depression/Anxiety/psychiatric history Dx: bipolar, depression, anxiety Rx: sertraline 50 mg daily Hospitalization 06/2022 for SI/plan after numerous social stressors. Last visit he was feeling asymptomatic History of transverse myelitis with residual RLE weakness, foot drop, RLE parasthesia on gabapentin Wants to follow up with Dentist for receding gum line, I'm a teeth person! SH Living with grandfather, supportive family and friend network Transportation access stable Allergies: No Known Allergies Medications: Current Outpatient Medications Medication Sig Dispense Refill lovikhldu-zbwzkjkh-kfklpen ala (BIKTARVY) 50-200-25 mg tab Take 1 tablet by mouth once daily 30 Tablet 2 sertraline (ZOLOFT) 50 mg tablet TAKE 1 [...] Skin: no rash, ulcers and lesions Mouth: teeth/gum disease per above, no ulcers, oral lesions and pain Cardiopulmonary: no chest pain, shortness of breath and palpitations Gastrointestinal: no diarrhea, nausea and abdominal pain Genitourinary: per above Physical Exam: Vitals: Last 3 Vitals Flowsheet Row Office Visit from 03/21/2023 in [facility] Office Visit from 12/05/2022 in [facility] Office Visit from 10/08/2020 in [facility] Temp 97.4 ??F (36.3 ??C) 97.3 ??F (36.3 ??C) 98.7 ??F (37.1 ??C) Pulse 97 63 68 BP 104/62 145/91 132/92 Resp -- -- -- Weight 166 lb (75.3 kg) 172 lb 12.8 oz (78.4 kg) 178 lb 12.8 oz (81.1 kg) Exam: Gen: well appearing, comfortable, nad HENT: EOMI, CHRISTOPHER, no conjunctival injection, no o/p lesions, no cervical LAD Card: RRR no m/r/g Pulm: CTAB Abd: soft nontender nondistended, no hsm appreciated : scrotum still very swollen with areas of hypopigmentation in inferior, healed from previous Verucous lesions yovani-rectally Extremities: no peripheral edema, warm, well perfused [...] Lab Results Component Value Date QUANTIFERON NEGATIVE 10/08/2020 Lab Results Component Value Date HEPCABQL NON-REACTIVE 12/05/2022 Lab Results Component Value Date HGBA1C 5.2 07/31/2019 Lab Results Component Value Date CHOL 191 10/08/2020 HDL 47 10/08/2020 LDL 127 (H) 10/08/2020 TRIGLYC 75 10/08/2020 Lab Results Component Value Date URPROT 1+ (A) 10/08/2020 URGLUC NEGATIVE 10/08/2020 No results found for: [id number] Lab Results Component Value Date HEPAABQL REACTIVE (A) 10/08/2020 HBSAB NON-REACTIVE 10/08/2020 HBSAGQL NON-REACTIVE 10/08/2020 STI: Lab Results Component Value Date RPR [...] DETECTED 12/05/2022 Immunization History Administered Date(s) Administered HEP B, ADULT/ADOL 08/06/2019 HPV 9 03/21/2023 PNEUMOCOCCAL CONJUGATE PCV 13 08/06/2019 PNEUMOCOCCAL POLYSACCHARIDE PPV23 08/06/2019 Problem List: Patient Active Problem List Diagnosis HIV infection ([facility]) Syphilis Right foot drop 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[facility]) Anal warts HSV infection Assessment/Plan: Phil was seen today for hiv and follow up. Diagnoses and all orders for this visit: Human immunodeficiency virus (HIV) disease ([facility]) - endorses excellent adherence to Biktarvy - this visit VL ND and CD4 is 202 - yay! - will need to continue bactrim - will notify surgical office and get a sense of what duration of time they feel comfortable with for repeat testing (we would normally retest at 3 months but if they are comfortable with sooner repeat testing we can do that (patient's CD4 just above 200 may have routine fluctuations, but would expect it to generally trend up) - BLOOD COUNT COMPLETE AUTO&AUTO DIFRNTL WBC - COMPREHENSIVE METABOLIC PANEL - HIV-1 RNA QUANT REAL TIME PCR, PLASMA - T CELLS ABSOLUTE CD4&CD8 COUNT RATIO - QUANTIFERON-TB GOLD PLUS Right Inguinal Hernia - surgical plan per above - denies symptoms of obstruction, but having significant local discomfort History of syphilis - completed bicillin x 3 as of December 29, 2022 - Denies prior treatment but looks like there was a prior high titer in care everywhere in 2018 at [facility]. Was living in [place], [place] 05/2021 - 02/2023 - but did not get testing or treatment there - will message Juan Jose at state to get history, possible [facility] as well - monitor titer or test sooner prn - RPR (MONITOR) W/REFL TITER - appropriate decline to 1:64 - RFLX - RPR TITER Screening examination for STD (sexually transmitted disease) - C TRACHOMATIS/N GONORRHOEAE RNA,TMA - CHLAMYDIA/GONORRHOEAE RNA, TMA, THROAT - CHLAMYDIA/GONORRHEA, RNA TMA, RECTAL Genital lesion, male - maybe be more of a contact or pressure wound on penis where it is contact with swollen scrotum - but ddx includes infectious so will test - HERPES SIMPLEX VIRUS 1 AND 2 PCR - MONKEYPOX VIRUS DNA, QUALITATIVE REAL-TIME PCR Condyloma - recurrent after previous exision/fulguration - no bleeding or pain - continue to take HIV meds - REFERRAL TO COLORECTAL SURGERY Microcytosis - without anemia - needs iron studies next visit [facility] Need for HPV vaccination - IM ADM PRQ ID SUBQ/IM NJXS 1 VACCINE - 9VHPV VACC 2/3 DOSE SCHED IM USE Follow Up: Return in about 3 months (around 06/21/2023). Total time spent today on today's visit including both face to face time and non-face to face time personally spent on history taking and exam, review of labs, medications, care gaps, and informationin CareEverywhere, discussing labs, treatment plans, goals, and referrals to specialists if needed,and answering patient's questions and coordinating care: 51 minutes documented in this encounter Miscellaneous Notes * Result Encounter Note - Qamar Lamas MD - 03/27/2023 8:50 AM CDT I reviewed labwork in PCP absence. There are some non-urgent lab abnormalities noted. Forwarding toPCP to review when they return to clinic. documented in this encounter Plan of Treatment Scheduled Referrals Name Type Priority Associated Diagnoses Orde r Schedule REFERRAL TO COLORECTAL SURGERY Referral Routine Condyloma Ordered: 03/21/2023 documented as of this encounter Procedures Procedure Name Priority Date/Time Associated Diagnosis Comments MONKEYPOX VIRUS DNA, QUALITATIVE REAL-TIME PCR Routine 03/21/2023 3:48 PM CDT Genital lesion, male HERPES SIMPLEX VIRUS 1 AND 2 PCR Routine 03/21/2023 3:46 PM CDT Genital lesion, male QUANTIFERON-TB GOLD PLUS Routine 03/21/2023 3:23 PM CDT Human immunodeficiency virus (HIV) disease ([facility]) CHLAMYDIA/GONORRHOEA E RNA, TMA, THROAT Routine 03/21/2023 3:23 PM CDT Screening examination for STD (sexually transmitted disease) C TRACHOMATIS/N GONORRHOEAE RNA,TMA Routine 03/21/2023 3:23 PM CDT Screening examination for STD (sexually transmitted disease) RFLX - RPR TITER Routine 03/21/2023 3:23 PM CDT History of syphilis CHLAMYDIA/GONORRHEA, RNA TMA, RECTAL Routine 03/21/2023 3:23 PM CDT Screening examination for STD (sexually transmitted disease) HIV-1 RNA QUANT REAL TIME PCR, PLASMA Routine 03/21/2023 3:23 PM CDT Human immunodeficiency virus (HIV) disease ([facility]) RPR (MONITOR) W/REFL TITER Routine 03/21/2023 3:23 PM CDT History of syphilis T CELLS ABSOLUTE CD4&CD8 COUNT RATIO Routine 03/21/2023 3:23 PM CDT Human immunodeficiency virus (HIV) disease ([facility]) BLOOD COUNT COMPLETE AUTO&AUTO DIFRNTL WBC Routine 03/21/2023 3:23 PM CDT Human immunodeficiency virus (HIV) disease ([facility]) COMPREHENSIVE METABOLIC PANEL Routine 03/21/2023 3:23 PM CDT Human immunodeficiency virus (HIV) disease ([facility]) documented in this encounter Results * MONKEYPOX VIRUS DNA, QUALITATIVE REAL-TIME PCR (03/21/2023 3:48 PM CDT) SPECIMEN TYPE LESION SWAB [facility] ANATOMIC LOCATION NOT GIVEN [facility]/ [facility] Orthopoxvirus.non-v ariola DNA NOT DETECTED [facility]/ [facility] Monkeypox virus DNA NOT DETECTED [facility]/ [facility] Comment: This specimen is negative for Mpox virus DNA. If clinically indicated, consider collecting another specimen. REFERENCE RANGE: NOT DETECTED The Mpox Virus DNA Real-time PCR is intended for the qualitative detection of Non-variola Orthopoxviruses and Mpox virus (clade II) DNA using swabs from human pustular or vesicular rash specimens. The quality of a clinical sample is evaluated by the presence of human RNase P. If RNase P is Not detected and the target DNA is Not detected then the result is reported as INVALID. These results must be used in conjunction with clinical observations and epidemiological risk factors. Please review the Fact Sheets and FDA authorized labeling available for health care providers and patients using the following websites: https://www.Tweekaboo/mpox/hcp/pcr/factsheet https://www.[employer].Kofax/mpox/patient/pcr/factsheet This test has been authorized by the FDA under an Emergency Use Authorization (EUA) for use by authorized laboratories. Due to the current public health emergency, [email or web address] is accepting samples from appropriate clinical sources (swabs of lesions) collected using a wide variety of swabs and viral transport media for mpox testing, which may not have the equivalent ingredients as the media validated by [facility]. Not detected test results derived from specimens received in non-validated media, including non-commercially manufactured viral collection kits, should be cautiously evaluated. Extra precautions should be considered such as additional clinical monitoring and collection of an additional specimen if clinically indicated. For additional information, please refer to: https://www.[employer].Kofax/healthcare- professionals/quxlvtwy-eykfrikkd-dhwgjq/faq/rar501 (This link is being provided for informational/ educational purposes only.) LESION Lesion specimen / Unknown 03/21/2023 3:48 PM CDT 03/21/2023 3:49 PM CDT Narrative [facility] [place] - 03/25/2023 3:18 AM CDT SPLIT 03/21/2023 FROM [id number] Mady Sullivan MD LAB - NO BLOOD DRAW Fi nal Result [facility] [place] [address] [place] [address] [facility] [address] [place] [address] * HERPES SIMPLEX VIRUS 1 AND 2 PCR (03/21/2023 3:46 PM CDT) SOURCE GENITAL LESION [facility]/ [facility] HSV 1 DNA NOT DETECTED [facility]/ [facility] HSV 2 DNA NOT DETECTED [facility]/ [facility] Comment: REFERENCE RANGE: NOT DETECTED This test was developed and its analytical performance characteristics have been determined by [email or web address]. It has not been cleared or approved by FDA. This assay has been validated pursuant to the CLIA regulations and is used for clinical purposes. Blood Genital structure / Unknown 03/21/2023 3:46 PM CDT 03/21/2023 3:47 PM CDT Narrative [facility] [place] - 03/25/2023 3:51 AM CDT MULTIPLE TESTING PRIORITIES; ROUTINE TESTING TO FOLLOW. Mady Sullivan MD LAB - NO BLOOD DRAW Fi nal Result Performing Organization Address City/[facility]/ZIP Co de Phone Number [facility] [place] [address] [place] [address] [facility] [address] [place] [address] * (ABNORMAL) RFLX - RPR TITER (03/21/2023 3:23 PM CDT) RPR TITER 1:64(H) 0.9 [facility] [place] 03/21/2023 3:23 PM CDT 03/21/2023 3:24 PM CDT Mady Sullivan MD LAB - BLOOD DRAW Edite d Result - Final [facility] [place] [address] [place] [address], [facility] [address] [place] [address] * QUANTIFERON-TB GOLD PLUS (03/21/2023 3:23 PM CDT) Pathologist [facility] QUANTIFERON NEGATIVE NEGATIVE [facility] [place] Comment: Negative test result. M. tuberculosis complex infection unlikely. NIL 0.04 IU/mL [facility] [place] MITOGEN-NIL 8.78 IU/mL [facility] TB1-NIL 0.00 IU/mL [facility] TB2-NIL 0.00 IU/mL [facility] [place] Comment: The Nil tube value reflects the background interferon gamma immune response of the patient's blood sample. This value has been subtracted from the patient's displayed TB and Mitogen results. Lower than expected results with the Mitogen tube prevent false-negative Quantiferon readings by detecting a patient with a potential immune suppressive condition and/or suboptimal pre-analytical specimen handling. The TB1 Antigen tube is coated with the M. tuberculosis-specific antigens designed to elicit responses from TB antigen primed CD4+ helper T-lymphocytes. The TB2 Antigen tube is coated with the M. tuberculosis-specific antigens designed to elicit responses from TB antigen primed CD4+ helper and CD8+ cytotoxic T-lymphocytes. For additional information, please refer to https://education.[employer] Inventions.Kofax/faq/DTE576 (This link is being provided for informational/ educational purposes only.) Blood Blood / Unknown 03/21/2023 3 :23 PM CDT 03/21/2023 3:24 PM CDT Mady Sullivan MD LAB - BLOOD DRAW Edite d Result - Final [facility] [address] [address], [facility] [address] [address] * CHLAMYDIA/GONORRHEA, RNA TMA, RECTAL (03/21/2023 3:23 PM CDT) CHLAMYDIA TRACHOMATIS RNA, TMA, RECTAL NOT DETECTED [facility] NEISSERIA GONORRHOEAE RNA, TMA, RECTAL NOT DETECTED [facility] Comment: REFERENCE RANGE: ??NOT DETECTED Methodology: ??Certified Nurse Practitioner Mediated Amplification (TMA) to detect RNA. The analytical performance characteristics of this assay have been determined by [email or web address]. The modifications have not been cleared or approved by the FDA. This assay has been validated pursuant to the CLIA regulations and is used for clinical purposes. COMMENT [facility] [place] Swab Specimen from rectum / Unknown 03/21/2023 3:23 PM CDT 03/21/2023 3:24 PM CDT Mady Sullivan MD LAB - NO BLOOD DRAW Ed ited Result - Final [facility] [place] [address] [place] [address] [facility] [address] [place] [address] [facility] [address] [address] * CHLAMYDIA/GONORRHOEAE RNA, TMA, THROAT (03/21/2023 3:23 PM CDT) CHLAMYDIA TRACHOMATIS RNA, TMA, THROAT NOT DETECTED [facility] NEISSERIA GONORRHOEAE RNA, TMA, THROAT NOT DETECTED [facility] Comment: REFERENCE RANGE: ??NOT DETECTED Methodology: ??Certified Nurse Practitioner Mediated Amplification (TMA) to detect RNA. The analytical performance characteristics of this assay have been determined by [email or web address]. The modifications have not been cleared or approved by the FDA. This assay has been validated pursuant to the CLIA regulations and is used for clinical purposes. For additional information, please refer to https://Real [employer] Kitchens.Tweekaboo/faq/YZE635 (This link is being provided for informational/educational purposes only.) COMMENT [facility] Swab Structure of anterior portion of neck / Unknown 03/21/2023 3:23 PM CDT 03/21/2023 3:24 PM CDT Mady Sullivan MD LAB - NO BLOOD DRAW Ed ited Result - Final [facility] [place] [address] [place] [address] [facility] [address] [place] [address] [facility] [address] [place] [address] * C TRACHOMATIS/N GONORRHOEAE RNA,TMA (03/21/2023 3:23 PM CDT) CHLAMYDIA TRACHOMATIS RNA, TMA NOT DETECTED NOT DETECTED [facility] [place] NEISSERIA GONORRHOEAE RNA, TMA NOT DETECTED NOT DETECTED [facility] [place] COMMENT [facility] Urine Urine specimen / Unknown 03/21/2023 3:23 PM CDT 03/21/2023 3:24 PM CDT Narrative [facility] [place] - 03/28/2023 11:39 PM CDT The analytical performance characteristics of this assay, when used to test SurePath(TM) specimens have been determined by [email or web address]. The modifications have not been cleared or approved by the FDA. This assay has been validated pursuant to the CLIA regulations and is used for clinical purposes. For additional information, please refer to https://Real [employer] Kitchens.Marg[employer].Kofax/faq/EYT544 (This link is being provided for information/ educational purposes only.) us Mady Sullivan MD LAB - NO BLOOD DRAW Ed ited Result - Final [facility] [place] [address] [place] [address], [facility] [place] [address] [place] [address] * (ABNORMAL) RPR (MONITOR) W/REFL TITER (03/21/2023 3:23 PM CDT) [facility] RPR (MONITOR) W/REFL TITER REACTIVE( A) NON-REACT FARTUN [facility] Comment: The RPR is a yfr-gqifuwvxvz-rsyqnrzl test; therefore, a treponemal-specific confirmatory test should be performed unless prior syphilis infection has been documented for this patient. Blood Blood / Unknown 03/21/2023 3 :23 PM CDT 03/21/2023 3:24 PM CDT Mady Sullivan MD LAB - BLOOD DRAW Edite d Result - Final Performing Organization Address City/[facility]/ZIP Co de Phone Number [facility] [address] [address], [facility] [address] [address] * (ABNORMAL) T CELLS ABSOLUTE CD4&CD8 COUNT RATIO (03/21/2023 3:23 PM CDT) [facility] % CD4 (HELPER CELLS) 10(L) 30 - 61 % [facility] [place] ABSOLUTE CD4+ CELLS 202(L) 490 - 1,740 cells/uL [facility] [place] % CD8 (SUPPRESSOR T CELLS) 67(H) 12 - 42 % [facility] [place] ABSOLUTE CD8+ CELLS 1,295(H) 180 - 1,170 cells/uL [facility] [place] HELPER/SUPPRESS OR RATIO 0.16(L) 0.86 - 5.00 [facility] [place] ABSOLUTE LYMPHOCYTES 1,943 850 - 3,900 cells/uL [facility] [place] Blood Blood / Unknown 03/21/2023 3 :23 PM CDT 03/21/2023 3:24 PM CDT Mady Sullivan MD LAB - BLOOD DRAW Edite d Result - Final [facility] [place] [address] [place] [address] [facility] [address] [place] [address] * (ABNORMAL) HIV-1 RNA QUANT REAL TIME PCR, PLASMA (03/21/2023 3:23 PM CDT) COPIES/ML <20 DETECTED( A) NOT DETECTED [facility] [place] LOG COPIES/ML <1.30 DETECTED( A) NOT DETECTED [facility] [place] Comment: HIV-1 RNA was detected below 20 copies/mL. Viral nucleic acid detected below this level cannot be quantified by the assay. This test was performed using Real-Time Polymerase Chain Reaction. Reportable Range: 20 copies/mL to 10,000,000 copies/mL (1.30 log copies/mL to 7.00 log copies/mL). Blood Blood / Unknown 03/21/2023 3 :23 PM CDT 03/21/2023 3:24 PM CDT Mady Sullivan MD LAB - BLOOD DRAW Edite d Result - Final [facility] [place] [address] [place] [address], [facility] [address] [place] [address] * (ABNORMAL) COMPREHENSIVE METABOLIC PANEL (03/21/2023 3:23 PM CDT) GLUCOSE 82 65 - 99 mg/dL [facility] Comment: ?Fasting reference interval UREA NITROGEN (BUN) 12 7 - 25 mg/dL [facility] CREATININE (blood) 1.02 0.60 - 1.24 mg/dL [facility] EGFR 102 > OR = 60 mL/min/1. 73m2 [facility] [place] BUN/CREATININE RATIO SEE NOTE: [facility] Comment: ?? Not Reported: BUN and Creatinine are within ?? reference range. ? SODIUM 138 135 - 146 mmol/L [facility] POTASSIUM 4.3 3.5 - 5.3 mmol/L [facility] CHLORIDE 103 98 - 110 mmol/L [facility] [place] CARBON DIOXIDE 19(L) 20 - 32 mmol/L [facility] CALCIUM 10.1 8.6 - 10.3 mg/dL [facility] [place] PROTEIN, TOTAL 9.7(H) 6.1 - 8.1 g/dL [facility] [place] ALBUMIN 4.7 3.6 - 5.1 g/dL [facility] GLOBULIN 5.0(H) 1.9 - 3.7 g/dL (calc) [facility] [place] ALBUMIN/GLOBULI N RATIO 0.9(L) 1.0 - 2.5 (calc) [facility] BILIRUBIN, TOTAL 0.4 0.2 - 1.2 mg/dL [facility] [place] ALKALINE PHOSPHATASE 80 36 - 130 U/L [facility] [place] AST 16 10 - 40 U/L [facility] [place] ALT 20 9 - 46 U/L [facility] Blood Blood / Unknown 03/21/2023 3 :23 PM CDT 03/21/2023 3:24 PM CDT Mady Sullivan MD LAB - BLOOD DRAW Edite d Result - Final [facility] [id number] [facility] [place] [address], [facility] [place] [address] [facility] [place] [address] * (ABNORMAL) BLOOD COUNT COMPLETE AUTO&AUTO DIFRNTL WBC (03/21/2023 3:23 PM CDT) WHITE BLOOD CELL COUNT 3.8 3.8 - 10.8 Thousand/ uL [facility] [place] RED BLOOD CELL COUNT 5.86(H) 4.20 - 5.80 Million/u L [facility] HEMOGLOBIN 15.1 13.2 - 17.1 g/dL [facility] HEMATOCRIT 46.6 38.5 - 50.0 % [facility] MCV 79.5(L) 80.0 - 100.0 fL [facility] MCH 25.8(L) 27.0 - 33.0 pg [facility] MCHC 32.4 32.0 - 36.0 g/dL [facility] RDW 17.3(H) 11.0 - 15.0 % [facility] PLATELET COUNT 529(H) 140 - 400 Thousand/ uL [facility] MPV 9.9 7.5 - 12.5 fL [facility] ABSOLUTE NEUTROPHILS 1,402(L) 1,500 - 7,800 cells/uL [facility] ABSOLUTE LYMPHOCYTES 2,082 850 - 3,900 cells/uL [facility] ABSOLUTE MONOCYTES 213 200 - 950 cells/uL [facility] ABSOLUTE EOSINOPHILS 72 15 - 500 cells/uL [facility] [place] ABSOLUTE BASOPHILS 30 0 - 200 cells/uL [facility] [place] NEUTROPHILS PCT 36.9 % [facility] [place] LYMPHOCYTES 54.8 % [facility] [place] MONOCYTES 5.6 % [facility] [place] EOSINOPHILS 1.9 % [facility] [place] BASOPHILS 0.8 % [facility] Blood Blood / Unknown 03/21/2023 3 :23 PM CDT 03/21/2023 3:24 PM CDT Mady Sullivan MD LAB - BLOOD DRAW Edite d Result - Final [facility] [place] [id number] [address] [place] [employer] [id number], [facility] [place] [address] [address] [id number] documented in this encounter Visit Diagnoses Diagnosis Human immunodeficiency virus (HIV) disease ([facility])- Primary Human immunodeficiency virus [HIV] disease History of syphilis Personal history of other infectious and parasitic disease Screening examination for STD (sexually transmitted disease) Screening examination for venereal disease Genital lesion, male Other specified disorder of male genital organs Need for HPV vaccination Need for prophylactic vaccination and inoculation against other viral diseases Condyloma Condyloma acuminatum Microcytosis Other abnormality of red blood cells Unilateral inguinal hernia with obstruction and without gangrene, recurrence not specified documented in this encounter Additional Health Concerns Infection Onset Date Last Indicated Resolved Time Mpox Rule-Out 03/21/2023 03/21/2023 03/25/2023 1:2 0 AM PDT Assessment Noted Time PHQ-9 Depression Total Score: 12/06/19 12:00 PM PDT documented as of this encounter Care Teams Copy Cutter Relationship Specialty Start Date End Date Mady Sullivan MD [address] [place] [id number] PCP - General Infectious Diseases 12/22/22 documented as of this encounter
--- OUTSIDE RECORDS SUMMARY | 2024-08-10 03:27 | XMS_ITS | Encounter Summary ---
Author Organization [facility] Address [address] [place] [address] Care Team Providers Care Apprenticeship Training Representative Name Role Phone Mady Sullivan MD Primary Care Provider Reason for Visit * Reason Comments Follow Up HIV Encounter Details Date Type Department Care Team (Latest Contact Info) Description 12/04/2023 3:30 PM CDT Office Visit [address] [address] Mady Sullivan MD [address] [place] [address] [phone] Human immunodeficiency virus (HIV) disease (HCC-CMS) (Primary Dx); 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HCC-CMS); Neurosyphilis; Bipolar 2 disorder (HCC-CMS); Severe depressed bipolar I disorder without psychotic features (HCC-CMS); Erectile dysfunction, unspecified erectile dysfunction type; Condyloma; Methamphetamine use disorder, severe, in early remission (HCC-CMS); Mild hearing loss Social History Tobacco Use Types Packs/Day Years [...] Sign Reading Time Taken Comments Blood Pressure 119/79 12/04/2023 3:39 PM CDT Pulse 64 12/04/2023 3:39 PM CDT Temperature 36.9 ??C (98.5 ??F) 12/04/2023 3:39 PM CD T Respiratory Rate - - Oxygen Saturation 97% 12/04/2023 3:39 PM CDT Inhaled Oxygen Concentration - - Weight 85.7 kg (189 lb) 12/04/2023 3:39 PM CDT Height 182.9 cm (6') 12/04/2023 3:39 PM CDT Body Mass Index 25.63 12/04/2023 3:39 PM CDT documented in this encounter Progress Notes * Mady Sullivan MD - 12/04/2023 3:30 PM CDT Images from the original note were not included. HPI: Phil Chase is a 28 year old male with history of HIV infection who presents to [facility] clinic for close routine follow-up. Patient was last seen in clinic on 11/02/23. Lab Results Component Value Date CD4 286 (L) 06/27/2023 CD4 202 (L) 03/21/2023 CD4 120 (L) 12/05/2022 Lab Results Component Value Date COPIESML NOT DETECTED 11/02/2023 COPIESML NOT DETECTED 06/27/2023 COPIESML <20 DETECTED (A) 03/21/2023 W/ ADAP CM Isadora Interim - no hospitalizations - feeling better these days, working MDD, Bipolar 2 - h/o SA/SI, multiple hospitalizations - most recent medication regimen managed at [facility] psychiatry Duloxetine 60 mg daily Aripiprazole 15 mg qhs Doxepin 25 mg daily Hydroxyzine 25 mg q6 hours prn Buspirone 50 mg BID - symptoms: stable, no issues with sleep, feels more stable Neurosyphilis - s/p PCN IV treatment 10/10 - 10/23 - last visit presenting symptoms has resolved - continues to have no headaches, no visual or hearing impairments - referred to neurology - tried to schedule but wasn't able to reach anyone Transverse myelitis - got orthotic for foot drop, tried to schedule PT but there was some issue with medicaid ED - noticed onset in 2018 though thinks more so since quitting methamphetamines, since he usually used in association with sex - has morning erection and when he is by himself, but has dysfunction when he is with others. Libido is unchanged - We check testosterone last time and it was slightly high Condyloma History of recent Hernia repair Scheduled colorectal surgery December 31 (is this Dr. Cuevas?) History of hernia repair - symptoms of swelling improved, no complaints HIV - has been well controlled on Biktarvy Methamphetamine use - currently in recovery Habits: - STI screen- reports no new partners - tobacco - etoh - other SH - living in sober housing - [facility] assisting with transportation Allergies: No Known Allergies Medications: Current Outpatient Medications Medication Sig Dispense Refill ARIPiprazole (ABILIFY) 15 mg tablet Take one (1) tablet by mouth at bedtime 30 Tablet 1 busPIRone (BUSPAR) 5 mg tablet Take one (1) tablet by mouth twice a day 60 Tablet 1 DULoxetine (CYMBALTA) [address] capsule Take one (1) capsule by mouth daily 30 Capsule 1 hydrOXYzine HCL (ATARAX) 25 mg tablet Take one (1) tablet by mouth every 6 hours, as needed 120 Tablet 1 doxepin (SINEQUAN) 25 mg capsule TAKE 1 CAPSULE BY MOUTH NIGHTLY AT BEDTIME NEEDED FOR INSOMNIA 30 Capsule 0 gabapentin (NEURONTIN) 100 mg capsule Take 100 mg by mouth 2 (two) times daily dkjtmekth-gazfurfi-frlzpax ala (BIKTARVY) 50-200-25 mg tab TAKE 1 TABLET BY MOUTH ONCE DAILY 30 Tablet 2 lidocaine (LIDODERM) 5 % patch Place 1 Patch onto the skin nicotine, polacrilex, (NICORETTE) 2 mg gum Take 2 mg by mouth ibuprofen 600 mg tablet Take 1 Tablet by mouth every 6 (six) hours as needed FOR PAIN 30 Tablet 0 triamcinolone (KENALOG) 0.1 % ointment Apply topically 2 (two) times daily 80 g 1 No current facility-administered medications for this visit. Review of Systems: Skin: no rash, ulcers and lesions - though concerned about the hyperpigmentation on his anterior shins from previous rash Eyes: no decreased visual acuity and eye pain Mouth: no gum disease, ulcers, oral lesions and pain Cardiopulmonary: no chest pain, shortness of breath and palpitations Gastrointestinal: no diarrhea, nausea and abdominal pain Genitourinary: no dysuria and urethral discharge or lesions Physical Exam: Vitals: Last 3 Vitals Flowsheet Row Office Visit from 12/04/2023 in [facility] Office Visit from 11/21/2023 in [facility] Office Visit from 11/02/2023 in [facility] Temp 98.5 ??F (36.9 ??C) 98.4 ??F (36.9 ??C) 98.5 ??F (36.9 ??C) Pulse 64 63 80 BP 119/79 122/63 143/83 Resp -- -- 18 Weight 189 lb (85.7 kg) -- 188 lb 9.6 oz (85.5 kg) Exam: Gen: well appearing, comfortable, nad, mild pressured affect HENT: EOMI, no conjunctival injection, no o/p lesions Card: RRR no m/r/g Pulm: CTAB Extremities: no peripheral edema, warm, well perfused Large irregular hyperpigmentation on anterior b/l lower leg Laboratory Data: Routine: Latest Ref Rng & Units 11/02/2023 10:04 AM 06/27/2023 11:21 AM 03/21/2023 3:23 PM HIV HIV Viral Load NOT DETECTED copies/mL NOT DETECTED NOT DETECTED <20 DETECTED Latest Ref Rng & Units 11/02/2023 10:04 AM 06/27/2023 11:21 AM 03/21/2023 3:23 PM CBC White blood cell count 3.8 - 10.8 Thousand/uL 3.8 3.6 3.8 Hemoglobin 13.2 - 17.1 g/dL 14.7 14.2 15.1 Hematocrit 38.5 - 50.0 % 45.8 44.3 46.6 Platelets 140 - 400 Thousand/uL 379 326 529 Latest Ref Rng & Units 06/27/2023 11:21 [...] URGLUC NEGATIVE 10/08/2020 No results found for: [id number] Lab Results Component Value Date HEPAABQL REACTIVE (A) 10/08/2020 HBSAB NON-REACTIVE 10/08/2020 HBSAGQL NON-REACTIVE 10/08/2020 Lab Results Component Value Date HEPCABQL NON-REACTIVE 06/27/2023 STI: Lab Results Component Value Date RPR REACTIVE (A) 06/27/2023 RPR REACTIVE (A) 03/21/2023 RPR REACTIVE (A) 12/05/2022 Lab Results Component Value Date CHLAMYDIA NOT DETECTED 06/27/2023 CHLAMYDIA NOT DETECTED 03/21/2023 CHLAMYDIA NOT DETECTED 12/05/2022 CHLAMPHARYNG NOT DETECTED 11/02/2023 CHLAMPHARYNG NOT DETECTED 06/27/2023 CHLAMPHARYNG NOT DETECTED 03/21/2023 CHLAMANAL NOT DETECTED 11/02/2023 CHLAMANAL NOT DETECTED 06/27/2023 CHLAMANAL NOT DETECTED 03/21/2023 GC NOT DETECTED 06/27/2023 GC NOT DETECTED 03/21/2023 GC NOT DETECTED 12/05/2022 GCPHARYNG NOT DETECTED 11/02/2023 GCPHARYNG NOT DETECTED 06/27/2023 GCPHARYNG NOT DETECTED 03/21/2023 GCANAL NOT DETECTED 11/02/2023 GCANAL NOT DETECTED 06/27/2023 GCANAL NOT DETECTED 03/21/2023 Immunization History Administered Date(s) Administered DTAP 1993, 02/23/1994, 05/18/1994, 04/05/1995, 10/15/1998 Flu, Preservative Free 06/17/2023 HPV 9 03/21/2023, 06/27/2023, 11/02/2023 Hep A, Ped/adol, 2 Dose 10/05/2005 Hep B, Adult/Adol (ENERGIX/RECOMBIVAX) 08/06/2019, 10/24/2023 Hep B, Unspecified 01/05/1994, 04/10/1994, 09/22/1998 Hib (PRP-T) 1993, 02/23/1994, 05/18/1994, 04/05/1995 IPV 02/05/2003 MENINGOCOCCAL MCV4O (MENVEO) 11/02/2023 MENINGOCOCCAL MCV4P (MENACTRA) 10/05/2005 MMR (MMR II/Priorix) [...] hernia Major depressive disorder, recurrent episode, moderate ([facility]) Bipolar disorder, current episode depressed, severe ([facility]) Bipolar I disorder with depression (HCC-CMS) Severe depressed bipolar I disorder without psychotic features (HCC-CMS) Acute stress disorder Bipolar I disorder (HCC-CMS) Bipolar I disorder, most recent episode (or current) depressed, severe, specified as with psychoticbehavior (HCC-CMS) Bipolar 2 disorder (HCC-CMS) Assessment/Plan: Phil was seen today for follow up and hiv. Diagnoses and all orders for this visit: Human immunodeficiency virus (HIV) disease (HCC-CMS) - well controlled on Biktarvy - labs next visit 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HCC-CMS) - history of, possibly from HIV infection - has his orthothic for foot drop, following up with PT - neurology referral, possibly movement clinic Neurosyphilis - due for RPR next visit - denies any symptoms - to follow up with neurology - repeat LP in 6 months to assess for resolution of pleocytosis - will discuss with neurology once established Mild hearing loss b/l - noted in the hospital attributed to neurosyphilis - inpatient audiology note showing slight to mild hearing loss bilaterally - the temporal bone CT showing dehiscence of bilateral sigmoid plates, and MRI IAC showing no abnormal inner ear structures. - ENT evaluated and advised ENT follow up by [phone] Bipolar 2 disorder (HCC-CMS) Severe depressed bipolar I disorder without psychotic features (HCC-CMS) Methamphetamine use disorder, severe, in early remission ([facility]-CMS) - working with [facility], here with CM - in sober living, working with a psychiatrist, meds updated Erectile dysfunction, unspecified erectile dysfunction type - onset maybe 2017, unsure if related to no longer using meth during sexual encounters - last visit testosterone was high, is currently on abilify - ED primarily with other people, nocturnal tumescence and when by himself wnl - will follow, can consider PDE5-I prn Condyloma - scheduled colorectal surgery follow up in December - following with dental care - etoh/drug screen, phq9 Follow Up: Return in about 4 weeks (around 01/01/2024). Total time spent today on today's visit including both face to face time and non-face to face time personally spent on history taking and exam, review of labs, medications, care gaps, and informationin CareEverywhere, discussing labs, treatment plans, goals, and referrals to specialists if needed,and answering patient's questions and coordinating care: 39 minutes documented in this encounter Plan of Treatment Not on file documented as of this encounter Visit Diagnoses Diagnosis Human immunodeficiency virus (HIV) disease (HCC-CMS)- Primary Human immunodeficiency virus [HIV] disease 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HCC-CMS) Other causes of myelitis Neurosyphilis Bipolar 2 disorder (HCC-CMS) Other bipolar disorders Severe depressed bipolar I disorder without psychotic features (HCC-CMS) Bipolar I disorder, most recent episode (or current) depressed, severe, without mention of psychotic behavior Erectile dysfunction, unspecified erectile dysfunction type Condyloma Condyloma acuminatum Methamphetamine use disorder, severe, in early remission (HCC-CMS) Mild hearing loss documented in this encounter Additional Health Concerns Assessment Noted Time PHQ-9 Depression Total Score: 4 12/04/19 24 4:00 PM PDT documented as of this encounter Care Teams Apprenticeship Training Representative Relationship Specialty Start Date End Date Mady Sullivan MD [address] [place] [id number] PCP - General Infectious Diseases 12/22/22 documented as of this encounter
--- OUTSIDE RECORDS SUMMARY | 2024-08-10 03:27 | XMS_ITS | Encounter Summary ---
Author Organization [facility] Address [address] [place] [address] Care Team Providers Care Manager Fixed Income Name Role Phone Mady Sullivan MD Primary Care Provider Reason for Visit * Reason Comments STI Treatment Bicillin #3 Encounter Details Date Type Department Care Team (Late st Contact Info) Description 12/29/2022 9:30 AM CDT Office Visit [address] [address] Bhaskar Gant [address] [place] [address] [phone] Syphilis (Primary Dx) Social History Tobacco Use [...] Recorded In the last 10 days, have rodney u been in contact with someone who was confirmed or suspected to have Coronavirus/COVID-19? No / Unsure 12/29/2022 9:50 AM CDT documented as of this encounter Progress Notes * Bhaskar Alfreda - 12/29/2022 10:04 AM CDT Patient presents to clinic for treatment of Syphilis. Administered Bicillin 2.4mil units IM x 1 into left glute. Dose 3 of 3. Patient states that injection is painful but was tolerable. Instructed torefrain from any sexual contact for an additional seven day. Of note, his hernia repair surgery is scheduled for next week. documented in this encounter Plan of Treatment [...] as of this encounter Care Teams Manager Fixed Income Relationship Specialty Start Date End Date Mady Sullivan MD [address] [place] [id number] PCP - General Infectious Diseases 12/22/22 documented as of this encounter
--- OUTSIDE RECORDS SUMMARY | 2024-08-10 03:27 | XMS_ITS | Encounter Summary ---
Author Organization [facility] Address [address] [place] [address] Care Team Providers Care Set Up Operator Tool Name Role Phone Mady Sullivan MD Primary Care Provider Encounter Details Date Type Department Care Team (Late st Contact Info) Description 11/21/2023 Interim Notes [id number] [place] [address] [facility] [place] Social History Tobacco Use Types [...] Notes * [facility] Provider Default - 11/21/2023 2:00 AM CDT Provider: Mahsa Dill [employer]: documented in this encounter Plan of Treatment Not on file documented as of this encounter Visit Diagnoses Not on filedocumented in this encounter Additional Health Concerns Assessment Noted Time PHQ-9 Depression Total Score: 6 12/06/19 12:00 PM PDT documented as of this encounter Care Teams Set Up Operator Tool Relationship Specialty Start Date End Date Mady Sullivan MD [address] [place] [id number] PCP - General Infectious Diseases 12/22/22 documented as of this encounter
--- OUTSIDE RECORDS SUMMARY | 2024-08-10 03:27 | XMS_ITS | Encounter Summary ---
Author Organization [facility] Address [address] [place] [address] Care Team Providers Care Horse Racing Manager Name Role Phone Mady Sullivan MD Primary Care Provider Encounter Details Date Type Department Care Team (Late st Contact Info) Description 11/02/2023 Interim Notes [id number] [place] [address] [facility] [place] Social History Tobacco Use Types [...] documented as of this encounter Care Teams Horse Racing Manager Relationship Specialty Start Date End Date Mady Sullivan MD [address] [place] [id number] PCP - General Infectious Diseases 12/22/22 documented as of this encounter
--- OUTSIDE RECORDS SUMMARY | 2024-08-10 03:27 | XMS_ITS | Clinical Summary ---
Author Organization [facility] Address [address] [place] [address] Care Team Providers Care Storage Garage Attendant Name Role Phone Mady Sullivan MD Primary Care Provider Source Comments PLEASE NOTE, if this patient is a minor, it may be UNLAWFUL to discuss sensitive information that is contained in these records (such as FAMILY PLANNING, MENTAL HEALTH or SUBSTANCE ABUSE) with the minor patient's parent or other person without the patient's specific authorization.[facility] Allergies No known active allergies Medications triamcinolone (KENALOG) 0.1 % ointmentIndicati ons:Erythema multiforme Apply topically 2 (two) times daily 80 g 1 01/01/2023 10:52 AM PDT 3 Active ibuprofen 600 mg tablet Take 1 Tablet by mouth every 6 (six) hours as needed FOR PAIN 30 Tablet 04/16/2023 6:21 AM PDT 3 Active lidocaine (LIDODERM) 5 % patch Place 1 Patch onto the skin 4 Active nicotine, polacrilex, (NICORETTE) 2 mg gum Take 2 mg by mouth 4 Active bictegrav-emtric it-tenofov ala (BIKTARVY) 50-200-25 mg tab TAKE 1 TABLET BY MOUTH ONCE DAILY 30 Tablet 2 4 Active doxepin (SINEQUAN) 25 mg capsule TAKE 1 CAPSULE BY MOUTH NIGHTLY AT BEDTIME NEEDED FOR INSOMNIA 30 Capsule 4 Active gabapentin (NEURONTIN) 100 mg capsule Take 100 mg by mouth 2 (two) times daily Active ARIPiprazole (ABILIFY) 15 mg tablet Take one (1) tablet by mouth at bedtime 30 Tablet 1 4 Active busPIRone (BUSPAR) 5 mg tablet Take one (1) tablet by mouth twice a day 60 Tablet 1 4 Active DULoxetine (CYMBALTA) [address] capsule Take one (1) capsule by mouth daily 30 Capsule 1 4 Active DULoxetine (CYMBALTA) [address] capsule Take 1 Capsule (60 mg) by mouth daily. 30 Capsule 4 Active hydrOXYzine HCL (ATARAX) 50 mg tablet Take 1 Tablet (50 mg) by mouth every 6 hours as needed for Anxiety. 30 Tablet 4 Active doxepin (SINEQUAN) 25 mg capsule TAKE 1 CAPSULE BY MOUTH ONCE DAILY AT BEDTIME 30 Capsule 4 Active hydrOXYzine HCL (ATARAX) 50 mg tablet Take 1 (one) tablet by mouth every 6 hours as needed for anxiety 60 Tablet 1 4 Active ARIPiprazole (ABILIFY) 5 mg tablet TAKE ONE TABLET BY MOUTH DAILY 30 Tablet 4 Active buPROPion XL (WELLBUTRIN XL) 150 mg 24 hr tablet TAKE 1 TABLET BY MOUTH DAILY 30 Tablet 4 Active DULoxetine (CYMBALTA) [address] capsule TAKE 1 CAPSULE BY MOUTH DAILY 30 Capsule 4 Active ARIPiprazole (ABILIFY) 5 mg tablet TAKE 1 TABLET BY MOUTH ONCE DAILY 30 Tablet 4 Active amoxicillin-pot clavulanate (AUGMENTIN) 875-125 mg per tablet TAKE 1 TABLET BY MOUTH EVERY 12 HOURS FOR 7 DAYS 14 Tablet 4 Active benzonatate (TESSALON) 100 mg capsule Take 1 capsule (100 mg total) by mouth 3 (three) times a day as needed for cough 15 Capsule 4 Active gabapentin (NEURONTIN) 100 mg capsule Take 1 capsule (100 mg total) by mouth 3 (three) times a day 60 Capsule 4 Active acetaminophen (TYLENOL) 500 mg tablet Take 1 tablet (500 mg total) by mouth every 6 (six) hours as needed for pain 30 Tablet 5 Active cephalexin (KEFLEX) 500 mg capsule Take 1 capsule (500 mg total) by mouth 4 (four) times a day 20 Capsule 5 Active Active Problems Problem Noted Date Diagnosed Date Bipolar 2 disorder ([facility]) 11/02/2023 Bipolar I disorder ([facility]) 07/31/2023 Bipolar I disorder, most rec ent episode (or current) depressed, severe, specified as with psychotic behavior ([facility]) 07/31/2023 Severe depressed bipolar I d isorder without psychotic features ([facility]) 07/14/2023 Bipolar disorder, current ep isode depressed, severe ([facility]) 07/12/2023 Acute stress disorder 07/12/2023 Bipolar I disorder with depression ([facility]) Bipolar disorder, current episode mixed, moderat e ([facility]) 06/27/2022 RENEE (generalized anxiety disorder) 06/27/2022 Inguinal hernia 06/27/2022 Major depressive disorder, r ecurrent episode, moderate ([facility]) 06/27/2022 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 Overview (06/27/2023): Added automatically from request for surgery [id number] Condyloma 10/29/2020 Overview (06/27/2023): Added automatically from request for surgery [id number] 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[facility]) 10/08/2020 Anal warts 10/08/2020 HSV infection 10/08/2020 Neurosyphilis 08/29/2019 Right foot drop 08/11/2019 Human immunodeficiency virus (HIV) disease ([facility]) 07/31/2019 Immunizations Name Administration Dates Next Due DTAP 10/15/1998, 5,05/18/1994,02/23,1993 Flu, Preservative Free 06/17/2023 HPV 9 (Gardasil) 11/02/2023,06/27/2023, 3 Hep A, Ped/adol, 2 Dose 10/05/2005 Hep B, Adult/Adol (ENERGIX/RECOMBIVAX) 4,08/06/2019 Hep B, Unspecified 09/22/1998,04/10/1994, 994 Hib (PRP-T) 04/05/1995, 4,02/23/1994,11/28 IPV 02/05/2003 MENINGOCOCCAL MCV4O (MENVEO) 11/02/2023 MENINGOCOCCAL MCV4P (MENACTRA) 10/05/2005 MMR (MMR II/Priorix) 10/15/1998,10/19/1994 OPV, Trivalent 05/18/1994,02/23/1994,1993 PNEUMOCOCCAL CONJUGATE PCV 13 08/06/2019 PNEUMOCOCCAL POLYSACCHARIDE PPV23 08/06/2019 POLIO, UNSPECIFIED 11/18/1996 TDAP 06/27/2023 Varicella, Live Vaccine 11/18/1996 Family History Medical History Relation Name Comments Diabetes Father Hypertension Father Relation Name Status Comments Father Alive Mother Alive Social History Tobacco Use Types Packs/Day Years [...] Don't know 12/05/2022 2: 00 PM PDT Last Filed Vital Signs Vital Sign Reading Time Taken Comments Blood Pressure 119/79 12/04/2023 3:39 PM CDT Pulse 64 12/04/2023 3:39 PM CDT Temperature 36.9 ??C (98.5 ??F) 12/04/2023 3:39 PM CD T Respiratory Rate 18 11/02/2023 9:17 AM CDT Oxygen Saturation 97% 12/04/2023 3:39 PM CDT Inhaled Oxygen Concentration - - Weight 85.7 kg (189 lb) 12/04/2023 3:39 PM CDT Height 182.9 cm (6') 12/04/2023 3:39 PM CDT Body Mass Index 25.63 12/04/2023 3:39 PM CDT Plan of Treatment Health Maintenance Due Date Last Done Comments Imm-Zoster, Recombinant (1 of 2) 2012 Depression Monitoring 03/05/2024 12/04/2023 , 12/05/2022, 10/08/2020 [id number] ( season) 2024 022 Imm-Influenza (#1) 2024 06/17/2023 Dental Prophy 05/25/2024 11/21/2023, 08/22/2023 STI Counseling 06/27/2024 06/27/2023 Alcohol and Drug Screen 07/23/2024 Dental BW 07/29/2024 07/27/2023 Dental Examination 07/29/2024 07/27/2023 Imm-Pneumococcal (3 of 3 - P PSV23 or PCV20) 08/06/2024 08/06/2019, 08/06/2019 Dental Perio Charting 11/22/2024 11/21/2023, 024 Hypertension Screening (#1) 12/03/2024 Diabetes Screening 02/11/2025 02/12/2024, 0 01/17/2024, 01/01/2024, Additional history exists Lipid Screening 02/11/2025 02/12/2024, 12/22, 01/01/2024, Additional history exists Tobacco Screening 04/21/2025 04/21/2024 Dental FMX/Pano 07/29/2028 07/27/2023, 07/27/2023 Imm-Meningococcal (3 - Risk 2-dose series) 11/01/2028 11/02/2023, 10/05/2005 Imm-DTaP/Tdap/Td (7 - Td or Tdap) 06/27/2033 06/27/2023, 10/15/1998, 04/05/1995, Additional history exists Imm-MMR Completed 10/15/1998, 10/19/1994 Imm-Hepatitis A Discontinued 10/05/2005 Imm-Hepatitis B Completed 10/24/2023, 07/23, 09/22/1998, Additional history exists Hepatitis C Screening Completed 05/04/2024 , 06/27/2023, 12/05/2022, Additional history exists Procedures Procedure Name Priority Date/Time Associated Diagnosis Comments Full COMP PERIODONTAL EVALUATION - NEW/EST PATIENT Routine 11/21/2023 11:00 AM CDT Acute gingivitis, plaque induced Full PROPHYLAXIS - ADULT Routine 11/21/2023 11:00 AM CDT Acute gingivitis, plaque induced PANORAMIC RADIOGRAPHIC IMAGE Routine 07/27/2023 9:30 AM HEALTH AND SAFETY TECHNICIAN Periapical abscess without sinus tract Chronic gingivitis, plaque induced Tooth pain Retained tooth root Caries Encounter for dental examination and cleaning with abnormal findings INTRAORAL - COMP SERIES OF RADIOGRAPHIC IMAGES Routine 07/27/2023 9:30 AM HEALTH AND SAFETY TECHNICIAN Periapical abscess without sinus tract Chronic gingivitis, plaque induced Tooth pain Retained tooth root Caries Encounter for dental examination and cleaning with abnormal findings COMP ORAL EVALUATION - NEW/ESTABLISHED PATIENT Routine 07/27/2023 9:30 AM HEALTH AND SAFETY TECHNICIAN Periapical abscess without sinus tract Caries Retained tooth root Chronic gingivitis, plaque induced Tooth pain Encounter for dental examination and cleaning with abnormal findings HEPATITIS C AB W/RFLX HCV RNA, QT, RT PCR Routine 06/27/2023 11:21 AM HEALTH AND SAFETY TECHNICIAN Need for hepatitis C screening test COMPREHENSIVE METABOLIC PANEL Routine 06/27/2023 11:21 AM HEALTH AND SAFETY TECHNICIAN Human immunodeficiency virus (HIV) disease (HCC-CMS) LIPIDS W RFLX TO DIRECT LDL Routine 06/27/2023 11:21 AM HEALTH AND SAFETY TECHNICIAN Lipid screening from Last 3 Months or Most Recently Relevant to Health Maintenance Results * HEPATITIS C AB W/RFLX HCV RNA, QT, RT PCR (06/27/2023 11:21 AM HEALTH AND SAFETY TECHNICIAN) HEPATITIS C ANTIBODY NON-REACT FARTUN NON-REACT FARTUN [facility] Comment: HCV antibody was non-reactive. There is no laboratory evidence of HCV infection. In most cases, no further action is required. However, if recent HCV exposure is suspected, a test for HCV RNA (test code 70105) is suggested. For additional information please refer to http://[place].[employer]/faq/RRI49g2 (This link is being provided for informational/ educational purposes only.) Blood Blood / Unknown 06/27/2023 1 1:21 AM HEALTH AND SAFETY TECHNICIAN 06/28/2023 3:15 AM HEALTH AND SAFETY TECHNICIAN Mady Sullivan MD LAB - BLOOD DRAW Edite d Result - Final [address] [place] [address] [place] [address], [address] [place] [address] [place] [address] * LIPIDS W RFLX TO DIRECT LDL (06/27/2023 11:21 AM HEALTH AND SAFETY TECHNICIAN) [facility] CHOLESTEROL, TOTAL 163 <200 mg/dL [facility] HDL CHOLESTEROL 49 > OR = 40 mg/dL [address] [place] TRIGLYCERIDES 66 <150 mg/dL [facility] [place] LDL-CHOLESTEROL 99 mg/dL (calc) [facility] Comment: Reference range: <100 Desirable range <100 mg/dL for primary prevention; ?? <70 mg/dL for patients with CHD or diabetic patients with > or = 2 CHD risk factors. LDL-C is now calculated using the Molly calculation, which is a validated novel method providing better accuracy than the Friedewald equation in the estimation of LDL-C. Merrick IRVING et al. PARESH. 2013;310(19): 2876-8438 (http://education.[employer]/faq/OYJ671) CHOL/HDLC RATIO 3.3 <5.0 (calc) [facility] NON-HDL CHOLESTEROL 114 <130 mg/dL (calc) [facility] Comment: For patients with diabetes plus 1 major ASCVD risk factor, treating to a non-HDL-C goal of <100 mg/dL (LDL-C of <70 mg/dL) is considered a therapeutic option. Blood Blood / Unknown 06/27/2023 1 1:21 AM HEALTH AND SAFETY TECHNICIAN 06/28/2023 3:06 AM HEALTH AND SAFETY TECHNICIAN Mady Sullivan MD LAB - BLOOD DRAW Edite d Result - Final [facility] [place] [address] [place] [address], [address] [place] [address] [place] [address] * (ABNORMAL) COMPREHENSIVE METABOLIC PANEL (06/27/2023 11:21 AM HEALTH AND SAFETY TECHNICIAN) Pathologist [facility] GLUCOSE 67 65 - 99 mg/dL [facility] Comment: ? Fasting reference interval UREA NITROGEN (BUN) 13 7 - 25 mg/dL [facility] CREATININE (blood) 0.94 0.60 - 1.24 mg/dL [facility] EGFR 113 > OR = 60 mL/min/1. 73m2 [facility] BUN/CREATININE RATIO SEE NOTE: 6 - (calc) [facility] Comment: ?? Not [...] Blood / Unknown 06/27/2023 1 1:21 AM HEALTH AND SAFETY TECHNICIAN 06/28/2023 3:06 AM HEALTH AND SAFETY TECHNICIAN Mady Sullivan MD LAB - BLOOD DRAW Edite d Result - Final [facility] [place] [address] [facility] [place] [address], [facility] [address] [facility] [place] [address] from Last 3 Months or Most Recently Relevant to Health Maintenance Insurance [place] [employer]ENT[place] Care Teams Storage Garage Attendant Relationship Specialty Start Date End Date Mady Sullivan MD [address] [place] [address] PCP - General Infectious Diseases 12/22/22
--- OUTSIDE RECORDS SUMMARY | 2024-08-10 03:27 | XMS_ITS | Encounter Summary ---
Author Organization [facility] Address [address] [place] [address] Care Team Providers Care Manager Home Improvement Name Role Phone Mady Sullivan MD Primary Care Provider Encounter Details Date Type Department Care Team (Late st Contact Info) Description 04/09/2023 Interim Notes [facility] [address] [place] [address] [facility] [place] Social History Tobacco Use [...] Notes * [facility] Provider Default - 04/09/2023 12:00 AM CDT Provider: Mahsa Dill [employer]: documented in this encounter Plan of Treatment Not on file documented as of this encounter Visit Diagnoses Not on filedocumented in this encounter Additional Health Concerns Assessment Noted Time PHQ-9 Depression Total Score: 6 12/06/19 12:00 PM PDT documented as of this encounter Care Teams Manager Home Improvement Relationship Specialty Start Date End Date Mady Sullivan MD [address] [place] [id number] PCP - General Infectious Diseases 12/22/22 documented as of this encounter
--- OUTSIDE RECORDS SUMMARY | 2024-08-10 03:27 | XMS_ITS | Encounter Summary ---
Author Organization [facility] Address [address] [place] [address] Care Team Providers Care Pre K Teacher Name Role Phone Mady Sullivan MD Primary Care Provider Reason for Visit * Reason Comments Dental Hygiene/ Preventive D4346 Scaling in the presence of gingivitis Encounter Details Date Type Department Care Team (Late st Contact Info) Description 08/22/2023 1:30 PM MACHINE CUTTER Office Visit [facility] [address] [place] [address] [facility] [address] [place], [place] [id number] Chronic gingivitis, plaque induced (Primary Dx) Social History Tobacco Use Types [...] Sign Reading Time Taken Comments Blood Pressure 141/94 08/22/2023 1:55 PM MACHINE CUTTER Pulse 47 08/22/2023 1:55 PM MACHINE CUTTER Temperature 36.6 ??C (97.9 ??F) 08/22/2023 1:55 PM CS T Respiratory Rate - - Oxygen Saturation - - Inhaled Oxygen Concentration - - Weight - - Height - - Body Mass Index - - documented in this encounter Progress Notes * Brandee Lopezberg, [facility] - 08/22/2023 3:27 PM CST Scaling in the Presence of Gingivitis Confirmed client by name and date of . SUBJECTIVE: Phil Chase, 27 year old male, presents alone for SongAftery. Trial Judge: Not applicable Chief Complaint Patient presents with Dental Hygiene/ Preventive D4346 Scaling in the presence of gingivitis OBJECTIVE: RMHx: Yes Vitals: Vitals: 08/22/23 1355 BP: 141/94 Pulse: (!) 47 Temp: 97.9 ??F (36.6 ??C) RADIOGRAPHS: None - Reason: Previous radiographs reviewed. ASSESSMENT: EOE/IOE/Oral Cancer Screen: WNL Oral Hygiene: Poor Home Care: Toothbrush 2 x per day, Floss 1 x per day Fluoride exposure: fluoridated water source, toothpaste Plaque: Generalized Moderate Calculus: Generalized Moderate Gingival Description: Erythematous, Soft Inflammation: Generalized Severe Recession: Localized Moderate Bone Loss: None Staining: Generalized Moderate PSR: Not applicable Periodontal Screening Full Perio Charting completed: No Dx: K05.10 Chronic gingivitis, plaque induced (primary encounter diagnosis) DH Dx Details: D4346 Scaling in the presence of gingivitis. Heavy marginal and IP calc, some subgingivally. Heavy plaque marginally. Many areas of larger decay. Difficult to scale, in some areas. Demo w/floss and a mirror. Encouraged daily flossing ,stressing subgingivally. Recommended a Sarvaia OralB electric toothbrush. Pt isn't using one currently. Subgingival irrigation w/IoRinse. Applied topical Fl2 Varnish. Recommended warm salt water rinses if he has discomfort this afternoon/evening. Scheduled him for 3mos PRLX or D4346 and will be based on how he's been doing w/home care. Pt seems motivated. He is scheduled w/Dr. Hays for EXT next week. PLAN: Informed Consent/PARQ (Procedure, Alternatives, Risks, Questions): Patient confirms informed consent using PARQ. Dental procedures in this visit D4346 - SCALING PRESENCE GEN MOD/SEV GINGIVAL INFLAMM D4921 - GINGIVAL IRRIGATION MEDICINAL AGENT - /QUADRANT LL MEDHXU - MEDICAL HISTORY UPDATE D1330 - ORAL HYGIENE INSTRUCTIONS Full D4921 - GINGIVAL IRRIGATION MEDICINAL AGENT - /QUADRANT UL D4921 - GINGIVAL IRRIGATION MEDICINAL AGENT - /QUADRANT LR D4921 - GINGIVAL IRRIGATION MEDICINAL AGENT - /QUADRANT UR D1310 - D1310 NUTRITIONAL COUNSELING FOR THE CONTROL OF DENTAL DISEASE.A D1206 - TOPICAL APPLICATION OF FLUORIDE VARNISH Full Prophy completed with ultrasonic finishing frame runner, hand scaling, coronal polishing, and floss O[facility] & Nutrition counseling provided, discussed: Gingivitis, Periodontal disease, Proper brushing technique, Proper flossing technique, Increase brushing to twice a day, [place] more along the gumline, [place] more on posteriors, Increase flossing to once per day, Reduce soda and/or juice, Increase water consumption, Reduce frequency of snacking, How diet impacts caries process, Healthy eating tips Post-Op Information Given: verbal Referral: No orders of the defined types were placed in this encounter. Rx: No orders of the defined types were placed in this encounter. Behavior: Compliant [place]: Treatment: EXT w/Dr. Hays and Recall 3mos Carissa Dykes RDH documented in this encounter Plan of Treatment Not on file documented as of this encounter Procedures Procedure Name Priority Date/Time Associated Diagnosis Comments MEDICAL HISTORY UPDATE Routine 1:30 PM MACHINE CUTTER Chronic gingivitis, plaque induced SCALING PRESENCE GEN MOD/SEV GINGIVAL INFLAMM Routine 08/22/2023 1:30 PM MACHINE CUTTER Chronic gingivitis, plaque induced D1310 NUTRITIONAL COUNSELING FOR THE CONTROL OF DENTAL DISEASE.A Routine 08/22/2023 1:30 PM MACHINE CUTTER Chronic gingivitis, plaque induced UR GINGIVAL IRRIGATION MEDICINAL AGENT - /QUADRANT Routine 08/22/2023 1:30 PM MACHINE CUTTER Chronic gingivitis, plaque induced LR GINGIVAL IRRIGATION MEDICINAL AGENT - /QUADRANT Routine 08/22/2023 1:30 PM MACHINE CUTTER Chronic gingivitis, plaque induced UL GINGIVAL IRRIGATION MEDICINAL AGENT - /QUADRANT Routine 08/22/2023 1:30 PM MACHINE CUTTER Chronic gingivitis, plaque induced LL GINGIVAL IRRIGATION MEDICINAL AGENT - /QUADRANT Routine 08/22/2023 1:30 PM MACHINE CUTTER Chronic gingivitis, plaque induced Full TOPICAL APPLICATION OF FLUORIDE VARNISH Routine 08/22/2023 1:30 PM MACHINE CUTTER Chronic gingivitis, plaque induced Full ORAL HYGIENE INSTRUCTIONS Routine 08/22/2023 1:30 PM MACHINE CUTTER Chronic gingivitis, plaque induced documented in this encounter Visit Diagnoses Diagnosis Chronic gingivitis, plaque induced- Primary documented in this encounter Additional Health Concerns Assessment Noted Time PHQ-9 Depression Total Score: 6 12/06/19 23 12:00 PM PDT documented as of this encounter Care Teams Pre K Teacher Relationship Specialty Start Date End Date Mady Sullivan MD [address] [place] [id number] PCP - General Infectious Diseases 12/22/22 documented as of this encounter
--- OUTSIDE RECORDS SUMMARY | 2024-08-10 03:27 | XMS_ITS | Encounter Summary ---
Author Organization [facility] Address [address] [place] [address] Care Team Providers Care Electric Scoop Operator Name Role Phone Mady Sullivan MD Primary Care Provider Encounter Details Date Type Department Care Team (Late st Contact Info) Description 11/21/2023 11:00 AM CDT Office Visit [facility] [address] [place] [address] Brandee Dykes, [facility] [address] [place] [address] Acute gingivitis, plaque induced (Primary Dx) Social History [...] Sign Reading Time Taken Comments Blood Pressure 122/63 11/21/2023 11:11 AM CDT Pulse 63 11/21/2023 11:11 AM CDT Temperature 36.9 ??C (98.4 ??F) 11/21/2023 11:11 AM C DT Respiratory Rate - - Oxygen Saturation - - Inhaled Oxygen Concentration - - Weight - - Height - - Body Mass Index - - documented in this encounter Progress Notes * Brandee Dykes, [facility] - 11/21/2023 12:09 PM CDT Gayatri Confirmed client by name and date of . SUBJECTIVE: Phil Chase, 28 year old male, presents with Isadora his protective services case worker for gayatri. Document Preparation Specialist: Not applicable No chief complaint on file. OBJECTIVE: RMHx: Yes Vitals: Vitals: 11/21/23 1111 BP: 122/63 Pulse: 63 Temp: 98.4 ??F (36.9 ??C) RADIOGRAPHS: None - Reason: Previous radiographs reviewed. ASSESSMENT: EOE/IOE/Oral Cancer Screen: WNL Oral Hygiene: Fair Home Care: Toothbrush 3 x per day, Floss 1 x per day Fluoride exposure: fluoridated water source, toothpaste Plaque: Generalized Moderate Calculus: Localized Slight Gingival Description: Erythematous, Soft Inflammation: Generalized Moderate Recession: Localized Moderate Bone Loss: None Staining: Generalized Moderate PSR: Not applicable Periodontal Screening Full Perio Charting completed: Yes Dx: K05.00 Acute gingivitis, plaque induced (primary encounter diagnosis) DH Dx Details: Pt here for 3mos PRLX. No exam due today.Perio chart today WNL w/1-3mm throughout. Pt arrived w/his protective services case worker, Isadora who was his source of transportation. Pt reports flossing and brushing 3X daily. Today, there was a lot of food debris, plaque and stain. Went over home care w/a mirror today. Pt has a lot of restorative work and ext yet to do. Gen plaque w/inflammation and lighthemo throughout. Pt reports no pain. He has several teeth that are broken off at the gumline. We scheduled him for 3mos PRLX and exam w/Dr. Hays and an appt to start EXT of non restorable teeth. Fl2 varnish applied today. I explained we are keeping him on 3mos PRLX due to the amount of decay. I expla inded we need to keep a close eye on everything and may be able to go out to 6mos after his restorative work is complete. PLAN: Informed Consent/PARQ (Procedure, Alternatives, Risks, Questions): Patient confirms informed consent using PARQ. Dental procedures in this visit D1110 - PROPHYLAXIS - ADULT Full (Completed) Service provider: Brandee Dykes RDH Billing provider: Juan J Torres DMD D1206 - TOPICAL APPLICATION OF FLUORIDE VARNISH Full (Completed) Service provider: Brandee Dykes RDH Billing provider: Juan J Torres DMD D1310 - D1310 NUTRITIONAL COUNSELING FOR THE CONTROL OF DENTAL DISEASE.A (Completed) Service provider: Brandee Dykes RDH Billing provider: Juan J Torres DMD MEDHXU - MEDICAL HISTORY UPDATE (Completed) Service provider: Brandee Dykes RDH Billing provider: Juan J Torres DMD D1330 - ORAL HYGIENE INSTRUCTIONS Full (Completed) Service provider: Brandee Dykes RDH Billing provider: Juan J Torres DMD Prophy completed with ultrasonic rouge miller, hand scaling, coronal polishing, and floss OHI & Nutrition counseling provided, discussed: Gingivitis, Periodontal disease, Proper brushing technique, Proper flossing technique, Increase brushing to twice a day, Eugene more along the gumline, Eugene more on posteriors, Increase flossing to once per day, Reduce soda and/or juice, Increase water consumption, Reduce frequency of snacking, How diet impacts caries process, Healthy eating tips Post-Op Information Given: verbal Referral: No orders of the defined types were placed in this encounter. Rx: No orders of the defined types were placed in this encounter. Behavior: Compliant NV: Recall 3mos w/exam and restorative w/Dr. Hays. Carissa Dykes RDH [id number] documented in this encounter Plan of Treatment Scheduled Orders Name Type Priority Associated Diagnoses Order Schedule Full PROPHYLAXIS - ADULT Dental Procedures Routine 1 Occurrences starting 11/21/2023 Full PERIODIC ORAL EVALUATION ESTABLISHED PATIENT Dental Procedures Routine 1 Occurren susie starting 11/21/2023 documented as of this encounter Procedures Procedure Name Priority Date/Time Associated Diagnosis Comments MEDICAL HISTORY UPDATE Routine 11:00 AM CDT Acute gingivitis, plaque induced D1310 NUTRITIONAL COUNSELING FOR THE CONTROL OF DENTAL DISEASE.A Routine 11/21/2023 11:00 AM CDT Acute gingivitis, plaque induced Full TOPICAL APPLICATION OF FLUORIDE VARNISH Routine 11/21/2023 11:00 AM CDT Acute gingivitis, plaque induced Full COMP PERIODONTAL EVALUATION - NEW/EST PATIENT Routine 11/21/2023 11:00 AM CDT Acute gingivitis, plaque induced Full ORAL HYGIENE INSTRUCTIONS Routine 11/21/2023 11:00 AM CDT Acute gingivitis, plaque induced Full PROPHYLAXIS - ADULT Routine 024 11:00 AM CDT Acute gingivitis, plaque induced documented in this encounter Visit Diagnoses Diagnosis Acute gingivitis, plaque induced- Primary documented in this encounter Additional Health Concerns Assessment Noted Time PHQ-9 Depression Total Score: 6 12/06/19 12:00 PM PDT documented as of this encounter Care Teams Electric Scoop Operator Relationship Specialty Start Date End Date Mady Sullivan MD [address] [place] [id number] PCP - General Infectious Diseases 12/22/22 documented as of this encounter
--- OUTSIDE RECORDS SUMMARY | 2024-08-10 03:27 | XMS_ITS | Encounter Summary ---
Author Organization [facility] Address [address] [place] [address] Care Team Providers Care Mechanical Facilities Technician Name Role Phone Mady Sullivan MD Primary Care Provider Reason for Visit * Reason Comments Comprehensive Oral Exam Dental Pain Patient reports tamy re pain mainly on lower right pointing to #30 but also has pain on all other quadrants Encounter Details Date Type Department Care Team (Latest Contact Info) Description 07/27/2023 9:30 AM DRAFTER LANDSCAPE Office Visit [address] [address] Yennitiagodebora Juan J, FIDEL [address] [place] [id number] Periapical abscess without sinus tract (Primary Dx); Caries; Retained tooth root; 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HCC-CMS); Human immunodeficiency virus (HIV) disease ([facility]-CMS); Bipolar 2 disorder (HCC-CMS); Chronic gingivitis, plaque induced; Tooth pain; Encounter for dental examination and cleaning with abnormal findings Social History Tobacco Use Types Packs/Day Years [...] Sign Reading Time Taken Comments Blood Pressure 136/90 07/27/2023 9:38 AM DRAFTER LANDSCAPE Pulse 68 07/27/2023 9:38 AM DRAFTER LANDSCAPE Temperature 35.9 ??C (96.6 ??F) 07/27/2023 9:38 AM CS T Respiratory Rate - - Oxygen Saturation - - Inhaled Oxygen Concentration - - Weight - - Height - - Body Mass Index - - documented in this encounter Progress Notes * Juan J Torres, DMD - 07/27/2023 11:16 AM CST COMPREHENSIVE EXAM Confirmed client by name and date of . SUBJECTIVE: Phil Chase, 27 year old male, presents alone for NPx exam. Marketing Account Manager: Not applicable Chief Complaint Patient presents with Comprehensive Oral Exam Dental Pain Patient reports severe pain mainly on lower right pointing to #30 but also has pain on all other quadrants OBJECTIVE: RMHx: Yes Vitals: 07/27/2023 9:38 AM BP 136/90 Pulse 68 BP Site Right Wrist BP Position Sitting BP Cuff Size Regular Adult Pain Score 10 - Worst possible pain Temp 96.6 (35.9) Temp source Forehead / Temporal RADIOGRAPHS TAKEN AND REVIEWED: FMX and PANO Verification of sterile instruments via internal and external indicator confirmation. ASSESSMENT: EOE/IOE/Oral Cancer Screen: WNL [place]: Poor Fluoride exposure: fluoridated water source, toothpaste Home Care: Toothbrush 2 x per day, Floss 2 x per day Plaque: Generalized Moderate Calculus: Localized Moderate Bone Loss: None PSR: Not applicable Periodontal Screening OHI & Nutrition counseling provided, discussed: Gingivitis, Periodontal disease Occlusion: No molar occlusion . Patient reports occasional clicking TMJ: WNL Caries Risk Assessment: No data to display Dx: K04.7 Periapical abscess without sinus tract (primary encounter diagnosis) K02.9 Caries K08.3 Retained tooth root G37.3 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[facility]) B20 Human immunodeficiency virus (HIV) disease ([facility]) F31.81 Bipolar 2 disorder ([facility]) K05.10 Chronic gingivitis, plaque induced K08.89 Tooth pain Z01.21 Encounter for dental examination and cleaning with abnormal findings Dx Details (Clinical Decision Making): Patient presents for initial exam and requests cleaning but also is in pain due to severe carious involvement and periapical abscesses. 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 Pt states he is not addicted and is in a better place in his life and is motivated to take better care of his teeth. He is also motivated by esthetics and asked about whitening and veneers although his understanding of veneers isactually to replace missing teeth. Discussed treatment sequence to include first removing painful teeth, gingival scaling, removal of remaining non-restorable teeth then replacing with interim partials followed by yarsani of caries. Prescribed Augmentin 875 mg and will schedule extractions after he completes the one week regimen. PLAN: PARQ: Discussed exam findings and treatment needs, questions answered. Patient confirms informed consent using PARQ, verbalizes understanding of exam findings and treatment plan. Patient understands that treatment plan may oil change technician the course of our visits. No Further Treatment Completed All questions answered, patient left in stable and alert condition. Dental procedures in this visit D0150 - COMP ORAL EVALUATION - NEW/ESTABLISHED PATIENT (Completed) Service provider: Juan J Torres DMD Billing provider: Juan J Torres DMD D0180 - COMP PERIODONTAL EVALUATION - NEW/EST PATIENT (Completed) Service provider: Juan J Torres DMD Billing provider: Juan J Torres DMD D0210 - INTRAORAL - COMP SERIES OF RADIOGRAPHIC IMAGES (Completed) Service provider: Juan J Torres DMD Billing provider: Juan J Torres DMD D0330 - PANORAMIC RADIOGRAPHIC IMAGE (Completed) Service provider: Juan J Torres DMD Billing provider: Juan J Torres DMD D1330 - ORAL HYGIENE INSTRUCTIONS (Completed) Service provider: FIDEL Williamsoning provider: Juan J Torres DMD D0603 - CARIES RISK ASSESSMENT & DOC FINDING HIGH RISK (Completed) Service provider: Juan J Torres DMD Billing provider: Juan J Torres DMD MHXIN - MEDICAL HISTORY NEW (Completed) Service provider: Juan J Torres DMD Billing provider: Juan J Torres DMD DTPLIN - DENTAL TREATMENT PLAN NEW (Completed) Service provider: Juan J Torres DMD Billing provider: Juan J Torres DMD POTXIN - PHASE I TREATMENT INITIATED (Completed) Service provider: Juan J Torres DMD Billing provider: Juan J Torres DMD Referrals: No orders of the defined types were placed in this encounter. Rx: Orders Placed This Encounter Medications amoxicillin-pot clavulanate (AUGMENTIN) 875-125 mg per tablet Sig: Take 1 Tablet by mouth 2 (two) times daily for 7 days Dispense: 14 Tablet Refill: 0 Behavior: Compliant DA: Adrienne NV: Treatment - Extraction 28, 30, 4 Juan J Torres DMD [id number] documented in this encounter Plan of Treatment Scheduled Orders Name Type Priority Associated Diagnoses Order Schedule 28 EXTRACTION ERU TOOTH RQR REMV BONE &/SECTN TOOTH Dental Procedures Routine 1 Occurrences starting 07/27/2023 30 EXTRACTION ERU TOOTH RQR REMV BONE &/SECTN TOOTH Dental Procedures Routine 1 Occurrences starting 07/27/2023 12 EXTRACTION ERU TOOTH RQR REMV BONE &/SECTN TOOTH Dental Procedures Routine 1 Occurrences starting 08/29/2023 13 EXTRACTION ERU TOOTH RQR REMV BONE &/SECTN TOOTH Dental Procedures Routine 1 Occurrences starting 08/29/2023 14 EXTRACTION ERU TOOTH RQR REMV BONE &/SECTN TOOTH Dental Procedures Routine 1 Occurrences starting 08/29/2023 19 EXTRACTION ERU TOOTH RQR REMV BONE &/SECTN TOOTH Dental Procedures Routine 1 Occurrences starting 08/29/2023 documented as of this encounter Procedures Procedure Name Priority Date/Time Associated Diagnosis Comments MEDICAL HISTORY NEW Routine 07/27/2023 9 :30 AM DRAFTER LANDSCAPE 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[facility]-CMS) Human immunodeficiency virus (HIV) disease ([facility]) Bipolar 2 disorder ([facility]) Encounter for dental examination and cleaning with abnormal findings DENTAL TREATMENT PLAN NEW Routine 07/27/2023 9:30 AM DRAFTER LANDSCAPE Periapical abscess without sinus tract Caries Retained tooth root Chronic gingivitis, plaque induced Tooth pain Encounter for dental examination and cleaning with abnormal findings PHASE I TREATMENT INITIATED Routine 07/27/2023 9:30 AM DRAFTER LANDSCAPE Periapical abscess without sinus tract Caries Retained tooth root Tooth pain Encounter for dental examination and cleaning with abnormal findings CARIES RISK ASSESSMENT & DOC FINDING HIGH RISK Routine 07/27/2023 9:30 AM DRAFTER LANDSCAPE Periapical abscess without sinus tract Chronic gingivitis, plaque induced Tooth pain Caries Encounter for dental examination and cleaning with abnormal findings COMP PERIODONTAL EVALUATION - NEW/EST PATIENT Routine 07/27/2023 9:30 AM DRAFTER LANDSCAPE Caries Chronic gingivitis, plaque induced Encounter for dental examination and cleaning with abnormal findings ORAL HYGIENE INSTRUCTIONS Routine 07/27/2023 9:30 AM DRAFTER LANDSCAPE Periapical abscess without sinus tract Chronic gingivitis, plaque induced Tooth pain Caries Encounter for dental examination and cleaning with abnormal findings PANORAMIC RADIOGRAPHIC IMAGE Routine 07/27/2023 9:30 AM DRAFTER LANDSCAPE Periapical abscess without sinus tract Chronic gingivitis, plaque induced Tooth pain Retained tooth root Caries Encounter for dental examination and cleaning with abnormal findings INTRAORAL - COMP SERIES OF RADIOGRAPHIC IMAGES Routine 07/27/2023 9:30 AM DRAFTER LANDSCAPE Periapical abscess without sinus tract Chronic gingivitis, plaque induced Tooth pain Retained tooth root Caries Encounter for dental examination and cleaning with abnormal findings COMP ORAL EVALUATION - NEW/ESTABLISHED PATIENT Routine 07/27/2023 9:30 AM DRAFTER LANDSCAPE Periapical abscess without sinus tract Caries Retained tooth root Chronic gingivitis, plaque induced Tooth pain Encounter for dental examination and cleaning with abnormal findings 3 [place] COMPOSITE - WISDOM (NON BILLABLE) Routine 07/27/2023 12:00 AM DRAFTER LANDSCAPE documented in this encounter Visit Diagnoses Diagnosis Periapical abscess without sinus tract- Primary Periapical abscess without sinus Caries Unspecified dental caries Retained tooth root Retained dental root 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HCC-CMS) Other causes of myelitis Human immunodeficiency virus (HIV) disease (HCC-CMS) Human immunodeficiency virus [HIV] disease Bipolar 2 disorder (HCC-CMS) Other bipolar disorders Chronic gingivitis, plaque induced Tooth pain Unspecified disorder of the teeth and supporting structures Encounter for dental examination and cleaning with abnormal findings documented in this encounter Additional Health Concerns Assessment Noted Time PHQ-9 Depression Total Score: 6 12/06/19 23 12:00 PM PDT documented as of this encounter Care Teams Mechanical Facilities Technician Relationship Specialty Start Date End Date Mady Sullivan MD [address] [place] [address] PCP - General Infectious Diseases 12/22/22 documented as of this encounter
--- OUTSIDE RECORDS SUMMARY | 2024-08-10 03:27 | XMS_ITS | Encounter Summary ---
Author Organization [facility] Address [address] [place] [address] Care Team Providers Care Strategy Manager Name Role Phone Mady Sullivan MD Primary Care Provider Encounter Details Date Type Department Care Team (Late st Contact Info) Description 04/03/2023 Interim Notes [id number] [place] [address] [facility] [place] Social History Tobacco Use [...] Notes * [facility] Provider Default - 04/03/2023 12:00 AM CDT Provider: Mahsa Dill [employer] Service: Electronically signed by Count Includes [facility] Provider Default at 04/03/2023 5:58 PM PDT documented in this encounter Plan of Treatment Not on file documented as of this encounter Visit Diagnoses Not on filedocumented in this encounter Additional Health Concerns Assessment Noted Time PHQ-9 Depression Total Score: 6 12/06/19 12:00 PM PDT documented as of this encounter Care Teams Strategy Manager Relationship Specialty Start Date End Date Mady Sullivan MD [address] [place] [phone] PCP - General Infectious Diseases 12/22/22 documented as of this encounter
--- OUTSIDE RECORDS SUMMARY | 2024-08-10 03:27 | XMS_ITS | Encounter Summary ---
Author Organization [facility] Address [address] [place] [address] Care Team Providers Care Route Aide Name Role Phone Mady Sullivan MD Primary Care Provider Reason for Visit * Reason Onset Date Comments Behavioral Health Assessment 01/18/2023 Encounter Details Date Type Department Care Team (Late st Contact Info) Description 01/18/2023 / TELEPHONE [facility] [address] [place] [address] Zana Ramos, AIR TRAFFIC CONTROL SUPERVISOR, SHIPPING SUPPORT CLERK [address] [place] [address] Social History Tobacco Use [...] AM CDT documented as of this encounter Nursing Notes * AIDE Silva, SHIPPING SUPPORT CLERK - 01/18/2023 10:13 AM CDT Made several attempts to contact the client for our scheduled session and did not receive a response. Client to contact this SHIPPING SUPPORT CLERK when ready to reschedule. Will follow-up and assist as needed. documented in this encounter Plan of Treatment Not on file documented as of this encounter Visit Diagnoses Not on filedocumented in this encounter Additional Health Concerns Assessment Noted Time PHQ-9 Depression Total Score: 6 12/06/19 12:00 PM PDT documented as of this encounter Care Teams Route Aide Relationship Specialty Start Date End Date Mady Sullivan MD [address] [place] [id number] PCP - General Infectious Diseases 12/22/22 documented as of this encounter
--- OUTSIDE RECORDS SUMMARY | 2024-08-10 03:27 | XMS_ITS | Encounter Summary ---
Author Organization [facility] Address [address] [place] [address] Care Team Providers Care Plater Hot Dip Name Role Phone Mady Sullivan MD Primary Care Provider Reason for Visit * Reason Comments Psychiatric Evaluation Encounter Details Date Type Department Care Team (Late st Contact Info) Description 07/11/2023 10:00 AM [employer] MANAGER / Visits [address] [phone] Sakshi Decker MD [address] [place] [id number] Major depressive disorder, recurrent episode, moderate (HCC-CMS) (Primary Dx) Social History Tobacco Use Types [...] as of this encounter Progress Notes * Sakshi Decker MD - 07/11/2023 10:14 AM CST PSYCHIATRY OUTPATIENT EVALUATION Patient Active Problem List Diagnosis HIV infection (HCC-CMS) Syphilis Right foot drop 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HCC-CMS) Anal warts HSV infection Anal fistula Bipolar disorder, current episode mixed, moderate (HCC-CMS) Condyloma RENEE (generalized anxiety disorder) Inguinal hernia Major depressive disorder, recurrent episode, moderate (HCC-CMS) Chief Complaint: Psychiatric evaluation History of Present Illness Phil Chase is a 27yo c/o severe anxiety. Some days he cannot wake up He has panic attacks. . He is in therapy through [facility] which helps his partially. He wakes up anxious. He thinks about all he has to do. He wakes up feeling like something is wrong.He is socially isolated. He has had poor work attendance in the past, last year. 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 He is in finals nowHe has all As and one B. He is getting his Masters. This is his first semester. He is also depressed. They think I am Bipolar. I do feel kind of suicidal right now. He is in pain. He c/o he hasdealt with a lot. His family is not supportive. He thinks he needs to check in to the hospital again because his suicidal thoughts are getting worse. Chart reviewed; pt missed his therapy appointment yesterday. Past Psychiatric History - Past diagnosis: anxiety, depression and Bipolar d/o. Chart reviewed at length. - Past suicide attempts: OD on gabapentin 01/2022. He was admitted for a week in [place]. He put gun in his mouth 04/2022. SI kn May - Psychiatric hospitalizations: multiple for SI, last May 2023. - EtOH: He reports rare. - Nicotine: He vapes nicotine and cannabis. - Illicit drugs: Methamphetamines. Pt states he has been clean for 5 months, however, UDS in chart + in May 2023. 30 day rehab in September 2022 Past Psychiatric Medications - Antidepressants: sertraline fluoxetine. - Mood stabilizers: Abilify - Antipsychotics: - Anxiolytics: hydroxyzine - Hypnotics: - Others: Past Medical History Patient Active Problem List Diagnosis HIV infection (HCC-CMS) Syphilis Right foot drop 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HCC-CMS) Anal warts HSV infection Anal fistula Bipolar disorder, current episode mixed, moderate (HCC-CMS) Condyloma RENEE (generalized anxiety disorder) Inguinal hernia Major depressive disorder, recurrent episode, moderate ([facility]-CMS) Current Medications Current Outpatient Medications on File Prior to Visit Medication Sig Dispense Refill ARIPiprazole (ABILIFY) 15 mg tablet Take 15 mg by mouth daily gabapentin (NEURONTIN) 300 mg capsule Take 300 mg by mouth 3 (three) times a day mirtazapine (REMERON) 45 mg tablet Take 45 mg by mouth dazesjfhm-smtlnbwm-gfaobct ala (BIKTARVY) 50-200-25 mg tab Take 1 [...] 30 Tablet 0 No current facility-administered medications on file prior to visit. No Known Allergies Social History - Education: He has a bachelor's degree and just started a Masters this semester. 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 - Living situation: He lives with a cousin. - Relationship status: He reported to PCP he has a partner. Pt did not discuss this today. - Children: none - Support system: cousin - Legal problems: none - Family psychiatric history: none that he is aware of. Review of Systems General: fatigue Respiratory: negative Cardiovascular: negative Gastrointestinal: poor appetite Musculoskeletal: negative Neuro: negative Last 3 Vitals Flowsheet Row Office Visit from 06/27/2023 in [facility] Office Visit from 03/21/2023 in [facility] Office Visit from 12/05/2022 in [facility] Temp 97.4 ??F (36.3 ??C) 97.4 ??F (36.3 ??C) 97.3 ??F (36.3 ??C) Pulse 77 97 63 BP 139/94 104/62 145/91 Resp 18 -- -- Weight 170 lb 3.2 oz (77.2 kg) 166 lb (75.3 kg) 172 lb 12.8 oz (78.4 kg) Mental Status Exam Appearance: Young BM of average build. Casual dress and grooming. Eye Contact: WNL Behavior: Polite and cooperative Motor: Mild psychomotor retardation Speech: Slow and monotone. Mood: depressed Affect: Constricted Thought Process: Linear and goal-directed with encouragement. Appeared to have thought blocking at times. Thought Content: No SI, HI. No AH, VH. No paranoia or delusions. OX3. No gross cognitive deficits. Insight/Judgment: Fair/ Intact AIMS no AbN movts noted. P Assessment Phil Chase is a 27 year oldtur-xwga-mvq male with severe depressive d/o and possibly psychotic features. Amphetamine use disorder, mod. SI worsening today. Plan - During the appointment, pt decided he needed to go to the hospital for SI. No plan at this time but pt feels it is necessary. Pt plans to have cousin drive him. - New patient forms were sent to patient by office staff: Psych meds, treatment plan + CS agreement. At this time, the benefit of medications outweighs risks. The risks, benefits, alternatives associated with the proposed treatment plan were discussed with the patient, including risks of polypharmacy and long-term/ongoing use of these medications. The patient expressed understanding of the diagnosis and treatment options and agrees with the proposed treatment plan. Safety plan reviewed with the patient, including going to an emergency room or calling 911 in case of emergence of thoughts of suicide or self-harm. This visit was held via a secure telemedicine connection. The psychiatrist was working remotely andthe patient was located at the office in [place]. Contingency plans in case of emergency or equipment failure were discussed at the beginning of the visit. The patient agreed to receive psychiatric services via telemedicine. Total time spent seeing the patient and reviewing/documenting in the record: 60 minutes Follow up as needed. Sakshi Decker MD documented in this encounter Plan of Treatment Not on file documented as of this encounter Visit Diagnoses Diagnosis Major depressive disorder, recurrent episode, moderate ([facility]-CMS)- Primary Major depressive disorder, recurrent episode, moderate documented in this encounter Additional Health Concerns Assessment Noted Time PHQ-9 Depression Total Score: 6 12/06/19 23 12:00 PM PDT documented as of this encounter Care Teams Plater Hot Dip Relationship Specialty Start Date End Date Mady Sullivan MD [address] [place] [phone] PCP - General Infectious Diseases 12/22/22 documented as of this encounter
--- OUTSIDE RECORDS SUMMARY | 2024-08-10 03:27 | XMS_ITS | Encounter Summary ---
Author Organization [facility] Address [address] [place] [address] Care Team Providers Care Fiberglass Roving Winder Name Role Phone Unavailable Primary Care Provider Unavailabl e Reason for Visit * Reason Comments Care Coordination Encounter Details Date Type Department Care Team (Late st Contact Info) Description [facility]/05[facility] [address] [place] [phone] Mray Mena [address] [place] [address] Social History Tobacco Use Types Packs/Day Years [...] suspected to have Coronavirus/COVID-19? No / Unsure 12/05/2022 10:15 AM CDT documented as of this encounter Progress Notes * Mary Mena - 12/07/2022 8:50 AM CDT Clinic CM later connected with pt once more as he was requesting his DCN number and CM needed to update his new cell phone number. documented in this encounter Plan of Treatment Not on file documented as of this encounter Visit Diagnoses Not on filedocumented in this encounter Additional Health Concerns Assessment Noted Time PHQ-9 Depression Total Score: 6 12/06/19 23 12:00 PM PDT documented as of this encounter
--- OUTSIDE RECORDS SUMMARY | 2024-08-10 03:28 | XMS_ITS ---
Author Organization [facility] Address [address] [place] [id number] Care Team Providers Care Chief Accountant Name Role Phone Mady Sullivan MD Primary Care Provider Enrollments Status:Enrolled Start date:03/21/2023 Related service episodes:Food Pantry Service () Continued Care and Services Coordination
--- OUTSIDE RECORDS SUMMARY | 2024-08-10 03:28 | XMS_ITS | Encounter Summary ---
Author Organization [facility] Address [address] [facility] [place] [address] Care Team Providers Care Corrections Specialist Name Role Phone Laurie Mady Primary Care Provider Un available Encounter Details Date Type Department Care Team (Latest Contact Info) Description 06/19/2024 Travel Social History Tobacco Use Types Packs/Day Years Used Date Smoking Tobacco: Former Passive Smoke Exposure: Never Smokeless Tobacco: Never Comments:Vape several times a day Alcohol Use Standard Drinks/Week Comments Not Currently 0 (1 standard drink = 0.6 oz pur e alcohol) socially AUDIT-C Answer Date Recorded Q1: How often do you have a drink containing alcohol? Patient unable to answer 05/03/2024 Q2: How many drinks containi ng alcohol do you have on a typical day when you are drinking? Patient unable to answer Q3: How often do you have si x or more drinks on one occasion? Patient unable to answer 05/03/2024 Overall Financial Resource Strain (CARDIA) Answe r Date Recorded How hard is it for you to pa y for the very basics like food, housing, medical care, and heating? Not very hard 02/16/2024 PHQ-2 Answer Date Recorded Patient Health Questionnaire-2 Score 6 02/03/2024 [facility] [place] [facility] - Occupational Stress Questionnaire Answer Date Recorded Do you feel stress - tense, restless, nervous, or anxious, or unable to sleep at night because your mind is troubled all the time - these days? Rather much 02/16/2024 Hunger Vital Sign Answer Date Recorded Within the past 12 months, y ou worried that your food would run out before you got the money to buy more. Never true 02/16/20 Within the past 12 months, t he food you bought just didn't last and you didn't have money to get more. Never true 02/16/2024 PRAPARE - Transportation Answer Date Re corded In the past 12 months, has l ack of transportation kept you from medical appointments or from getting medications? No 01/21 In the past 12 months, has l ack of transportation kept you from meetings, work, or from getting things needed for daily living? Yes 02/16/2024 Housing Stability Vital Sign Answer Jerrod e Recorded In the last 12 months, was t here a time when you were not able to pay the mortgage or rent on time? No 02/16/2024 In the last 12 months, how many places have you lived? 2 02/16/2024 In the last 12 months, was t here a time when you did not have a steady place to sleep or slept in a halfway (including now)? Yes 02/16/2024 Sex and Gender Information Value Date Recorded Sex Assigned at Not on file Gender Identity Not on file Sexual Orientation Not on file documented as of this encounter Functional Status Functional Status Response Date of Assess ment Is person deaf or have serious hearing difficult y? No 02/16/2024 Is person blind or have serious difficulty seein g? No 02/16/2024 Does person have serious dif ficulty walking/climbing stairs? No 02/16/2024 Does person have difficulty dressing/bathing? No 02/16/2024 Does person have difficulty doing errands alone? No 02/16/2024 Cognitive Status Response Date of Assessm ent Does person have difficulty concentrating/remembering/making decisions? No 02/16/2024 documented as of this encounter Plan of Treatment Not on file documented as of this encounter Visit Diagnoses Not on filedocumented in this encounter Care Teams Corrections Specialist Relationship Specialty Start Date End Date Mady Sullivan PCP - General 02/03/24 documented as of this encounter
--- OUTSIDE RECORDS SUMMARY | 2024-08-10 03:28 | XMS_ITS ---
Author Organization [facility] Address [address] [place] [address] Care Team Providers Care Lay Out Former Name Role Phone Mady Sullivan MD Primary Care Provider Food Pantry Service Status:Enrolled Start date:03/21/2023 Related program episode:Enrollments () Continued Care and Services Coordination
--- OUTSIDE RECORDS SUMMARY | 2024-08-10 03:28 | XMS_ITS | Encounter Summary ---
Author Organization [facility] Address [address] [place] [address] Care Team Providers Care Lapel Stitcher Name Role Phone Unavailable Primary Care Provider Unavailabl e Reason for Visit * Reason Comments Care Coordination Encounter Details Date Type Department Care Team (Late st Contact Info) Description 12/05/2022 [facility] [address] [place] [phone] Mary Mena [address] [place] [address] Social History Tobacco Use Types Packs/Day Years [...] encounter Progress Notes * Mary Mena - 12/05/2022 11:50 AM CDT Clinic CM let pt know his primary CM was not in the office at the moment. Pt reported he already connected with her by phone and no longer needed anything. documented in this encounter Plan of Treatment Not on file documented as of this encounter Visit Diagnoses Not on filedocumented in this encounter Additional Health Concerns Assessment Noted Time PHQ-9 Depression Total Score: 6 12/06/19 23 12:00 PM PDT documented as of this encounter
--- OUTSIDE RECORDS SUMMARY | 2024-08-10 03:28 | XMS_ITS | Encounter Summary ---
Author Organization [facility] Address [address] [place] [address] Care Team Providers Care Tire Servicer Name Role Phone Henrique Hardin MD Primary Care Provider [phone] Encounter Details Date Type Department Care Team (Latest Contact Info) Description 10/08/2020 Travel Social History Tobacco Use Types Packs/Day [...] Exposure Response Date Recorded In the last month, have you been in contact with someone who was confirmed or suspected to have Coronavirus / COVID-19? No / Unsure 10/08/2020 10:21 AM PDT documented as of this encounter Plan of Treatment Not on file documented as of this encounter Visit Diagnoses Not on filedocumented in this encounter Additional Health Concerns Assessment Noted Time PHQ-9 Depression Total Score: 021 10:00 AM PDT documented as of this encounter Care Teams Tire Servicer Relationship Specialty Start Date End Date Henrique Hardin MD [address] [place] [address] PCP - General Infectious Diseases 08/29/19 08/18/21 documented as of this encounter
--- OUTSIDE RECORDS SUMMARY | 2024-08-10 03:28 | XMS_ITS | Clinical Summary ---
Author Organization [facility] Address [address] [place] [address] Care Team Providers Care Source Water Protection Specialist Name Role Phone Mady Sullivan Primary Care Provider Un available Source Comments [facility],non-owned Affiliates and Associated Physician Practices is amultiple site organization consisting of ambulatory clinics and hospital sitesin [place], [place], [place] and [place]. This disclosure is being madepursuant to the Care Everywhere program and may not contain all information available regarding this patient. Last updated 18.[facility] [employer] Allergies No known active allergies Medications * Be aware that medications may not be up to date on this document. Alwaysverify current medications with the patient. Medication Sig Dispensed Refills Start Date End Date Status bictegravir-emtricitab ine-tenofovir (Biktarvy) 50-200-25 MGIndications:Human Immunodeficiency Virus Disease Take 1 (one) tablet by mouth once daily Reasons: HIV Disease 30 tablet 08/08/2023 Active hydrOXYzine HCl (Atarax) 50 MG tabletIndications:Anxi ety Take 1 (one) tablet by mouth every 6 hours as needed (Anxiety) Reasons: Feeling Anxious 60 tablet 1 02/14/2024 Active doxepin (SINEquan) 25 MG capsuleIndications:sle ep Take 1 (one) capsule by mouth at bedtime Reasons: sleep 30 capsule 02/14/2024 Active prazosin (Minipress) 2 MG capsule TAKE ONE CAPSULE BY MOUTH EVERY NIGHT AT BEDTIME FOR 30 DAYS 30 capsule 02/21/2024 02/20/2025 Active traZODone (Desyrel) 50 MG tablet TAKE ONE TABLET BY MOUTH EVERY NIGHT AT BEDTIME NEEDED FOR INSOMNIA 30 tablet 02/21/2024 02/20/2025 Active DULoxetine (Cymbalta) 60 MG capsule TAKE ONE CAPSULE BY MOUTH ONCE DAILY WITH 30 MG CAPSULE FOR A TOTAL OF 90 MG DAILY 30 capsule 02/21/2024 02/20/2025 Active DULoxetine (Cymbalta) 30 MG capsule TAKE ONE CAPSULE BY MOUTH ONCE DAILY. TAKE WITH 60MG CAPSULES FOR A DAILY TOTAL OF 90MG 30 capsule 02/21/2024 02/20/2025 Active ARIPiprazole (Abilify) 10 MG tablet TAKE ONE TABLET BY MOUTH ONCE DAILY 30 tablet 02/21/2024 02/20/2025 Active buPROPion XL 24hr (Wellbutrin-XL) 150 MG tablet Take 1 (one) tablet by mouth once daily 04/19/2024 Active busPIRone (Buspar) 10 MG tablet Take 1 (one) tablet by mouth 3 times daily 02/08/2024 Active gabapentin (Neurontin) 100 MG capsule Take 1 (one) capsule by mouth 2 times daily Active HYDROcodone-acetaminop hen (Florence) 5-325 MG tablet Take 1 (one) tablet by mouth every 6 hours as needed 04/09/2024 Active hydrOXYzine HCl (Atarax) 50 MG tablet Take 1 (one) tablet by mouth every 12 hours as needed 02/08/2024 Active Active Problems Problem Noted Date Diagnosed Date Palpitations 02/15/2024 Borderline personality disorder 02/15/2024 Methamphetamine use disorder, severe 02/15/2024 Schizoaffective disorder, bipolar type Bipolar affective disorder, remission status uns pecified 12/24/2023 Bipolar I disorder, most rec ent episode (or current) depressed, severe, specified as with psychotic behavior 07/31/2023 Bipolar I disorder 07/31/2023 Bipolar I disorder with depression 06/12/2023 Inguinal hernia without obstruction or gangrene 04/04/2023 HIV infection 07/31/2019 Overview (02/11/2024): Last Assessment & Plan: Seen by medicine consult team: HIV positive in 07/2017 HIV RNA undetectable in 09/2023. Needs to attend next follow-up apointment. Hep B and C negative. Hep A was positive in 09/2023 RPR as in Syphilis portion of A/P - continue Biktarvy daily - outpatient follow-up with ID Encounters Date Type Department Care Team Description 06/19/2024 2:26 AM FIRE CONTROL TECHNICIAN G - 06/19/2024 11:37 AM FIRE CONTROL TECHNICIAN G Emergency [facility] EM[facility]PARTMENT [address] [place] [address] Dorothy Miranda MD Heller, Ross, MD Suicidal ideation Discharge Disposition: Home or Self Care 06/19/2024 Travel from Last 3 Months Immunizations Name Administration Dates Next Due DTaP VACCINE IM (6wk-6yrs) 10/15/1998,,05/18/1994,02/23,1993 HEP A PEDS 2 DOSE 10/05/2005 HEP B VACCINE 09/22/1998,04/10/1994,01/05/1994 HEP B VACCINE, ADULT 3 DOSE 10/24/2023, 0 HIB-PRP-T 4 DOSE 04/05/1995, 4,02/23/1994,11/28 Human Papilloma Virus Nineva lent Vaccine 11/02/2023,06/27/2023,03/21/2023 INFLUENZA VACCINE, QUADR. (F LUZONE; FLULAVAL; FLUARIX; AFLURIA QUADRIVALENT; 6MO+), 0.5 ML (IIV4) 06/17/2023 MENINGOCOCCAL CONJUGATE (MCV4P) 10/05/2005 MENINGOCOCCAL MCV4O 11/02/2023 MMR VACCINE 10/15/1998,10/19/1994 PNEUMOCOCCAL PPV VACCINE 08/06/2019 POLIO IPV 02/05/2003 POLIO OPV 05/18/1994,02/23/1994,1993 POLIO,HISTORIC VACCINE 11/18/1996 Pneumococcal Pcv13 Conj 08/06/2019 TDAP, HISTORIC VACCINE 06/27/2023 VARICELLA 11/18/1996 Social History Tobacco Use Types Packs/Day Years Used Date Smoking Tobacco: Former Passive Smoke Exposure: Never Smokeless Tobacco: Never Tobacco Cessation:Counseling Given: Not Answered Comments:Vape several times a day Alcohol Use [...] Recorded Patient Health Questionnaire-2 Score 6 02/03/2024 [facility] - Occupational Stress [...] money to buy more. Never true 02/16/20 24 Within the past 12 months, t he [...] place to sleep or slept in a nursing home (including now)? Yes 02/16/2024 Sex and Gender Information Value Date Recorded Sex Assigned at Not on file Gender Identity Not on file Sexual Orientation Not on file Last Filed Vital Signs Vital Sign Reading Time Taken Comments Blood Pressure 109/71 06/19/2024 2:38 AM FIRE CONTROL TECHNICIAN G Pulse 59 06/19/2024 2:38 AM FIRE CONTROL TECHNICIAN G Temperature 36.6 ??C (97.8 ??F) 06/19/2024 2:38 AM CS T Respiratory Rate 20 06/19/2024 2:38 AM FIRE CONTROL TECHNICIAN G Oxygen Saturation 99% 06/19/2024 2:38 AM FIRE CONTROL TECHNICIAN G Inhaled Oxygen Concentration - - Weight 81.6 kg (180 lb) 04/26/2024 3:31 AM CDT Height 182.9 cm (6') 04/26/2024 3:31 AM CDT Body Mass Index 24.41 04/26/2024 3:31 AM CDT Plan of Treatment Health Maintenance Due Date Last Done Comments ZOSTER VACCINE (1 of 2) 2012 COVID-19 VACCINE (2 - Pfizer risk series) 08/02/2022 07/12/2022 INFLUENZA VACCINE (#1) 2024 06/17/2023 PNEUMOCOCCAL VACCINE (3 of 3 - PPSV23, PCV20 or PCV21) 08/06/2024 08/06/2019, 08/06/2019 MENINGOCOCCAL VACCINE (3 - Risk 2-dose series) 11/01/2028 11/02/2023, 10/05/2005 DTAP/TDAP/TD VACCINES (7 - Td or Tdap) 06/27/2033 06/27/2023, 10/15/1998, 04/05/1995, Additional history exists HIB VACCINE Completed 04/05/1995, 04/23, 02/23/1994, Additional history exists HEPATITIS B VACCINE Completed 10/24/2023, 08/06/2019, 09/22/1998, Additional history exists HPV VACCINE Completed 11/02/2023, 12/2022, 03/21/2023 HEPATITIS C SCREENING Completed 05/04/2024 MENINGOCOCCAL (Group B) VACCINE Aged Out No longer eligible based on patient's age to complete this topic Medical Devices Implanted Type Area Steam Gigger Device Identifier Shelf Expiration Date Model / Serial / Lot Mesh Srg 6x3in Lg Pore Knit Mfl Smth Rnd Implanted:Qty: 1 on 04/13/2023 by Natividad Blair MD at [facility] Mesh Right: Inguinal [employer] 08/19/2027 [id number] / / [id number] Description:TH Procedures Procedure Name Priority Date/Time Associated Diagnosis Comments URINE DRUG SCREEN IMMUNOASSAY STAT 06/19/2024 8:17 AM FIRE CONTROL TECHNICIAN G ALCOHOL ETHYL BLOOD STAT 06/19/2024 8 :06 AM FIRE CONTROL TECHNICIAN G COMPREHENSIVE METABOLIC PANEL STAT 06/19/2024 8:06 AM FIRE CONTROL TECHNICIAN G CBC W AUTO DIFFERENTIAL STAT 06/19/2024 8:06 AM FIRE CONTROL TECHNICIAN G HEPATITIS C ANTIBODY STAT 05/04/2024 10:36 AM CDT from Last 3 Months or Most Recently Relevant to Health Maintenance Results * (ABNORMAL) URINE DRUG SCREEN IMMUNOASSAY (06/19/2024 8:17 AM FIRE CONTROL TECHNICIAN G) Pathologist [facility] Amphetamines Screen Urine Positive(A) Negative : < 1000 ng/mL 06/19/2024 8:51 AM [facility] Comment: Positive urine amphetamine screening results should be confirmed by another generally accepted non-immunological method such as gas chromatography or mass spectrometry. ? Barbiturates Screen Urine Negative Negative : < 200 ng/mL 06/19/2024 8:51 AM [facility] Benzodiazepine Screen Urine Negative Negative : < 200 ng/mL 06/19/2024 8:51 AM [facility] Opiates Urine Negative Negative : < 300 ng/mL 06/19/2024 8:51 AM [facility] Cocaine Metabolites Urine Negative Negative : < 300 ng/mL 06/19/2024 8:51 AM [facility] Phencyclidine Screen Urine Negative Negative : < 25 ng/ml 06/19/2024 8:51 AM [facility] Cannabinoids Screen Urine Negative Negative : <50 ng/mL 06/19/2024 8:51 AM [facility] Methadone Screen Urine Negative Negative : < 300 ng/mL 06/19/2024 8:51 AM [facility] Fentanyl Screen Urine Negative Negative : <1.5 ng/mL 06/19/2024 8:51 AM [facility] Urine URINE / Unknown Collection / Unknown 06/19/2024 8:17 AM [facility] 06/19/2024 8:24 AM FIRE CONTROL TECHNICIAN G Narrative [facility] - 06/19/2024 8:51 AM [facility] The Urine Toxicology Screening Panel does not screen for Propoxyphene, Meprobamate, Carisoprodol, Trazodone, utsy-tyt-crmgawy medications and/or volatiles (Acetone, Isopropanol, Methanol or Ethylene Glycol). Ethanol, Salicylate, Acetaminophen, Tricyclic Antidepressants and several therapeutic drugs may be individually assayed in serum or plasma specimen. Toxicology testing by the [facility] is an aid to medical diagnosis and treatment of patients. No documented chain of custody was maintained. Results are intended to be used for clinical purposes only. ? Dorothy Miranda MD LAB - URINE CHEMISTR Y ORDERABLES Performing Organization Address [facility]/State/[facility] Co de Phone Number [facility] [address] [place] [address], [facility] [phone] * (ABNORMAL) CBC W AUTO DIFFERENTIAL (06/19/2024 8:06 AM [facility]) WBC 2.9(L) 4.0 - 10.7 x10E9/L 06/19/2024 8:24 AM [facility] RBC Count 5.19 4.30 - 5.80 x10E12/L 06/19/2024 8:24 AM [facility] Hemoglobin 12.9(L) 13.3 - 17.5 g/dL 06/19/2024 8:24 AM [facility] Hematocrit 40.6 38.7 - 51.1 % 06/19/2024 8:24 AM [facility] MCV 78.2(L) 80.0 - 98.0 fL 06/19/2024 8:24 AM [facility] MCH 24.9(L) 26.7 - 33.6 pg 06/19/2024 8:24 AM [facility] MCHC 31.8 31.7 - 36.3 g/dL 06/19/2024 8:24 AM [facility] RDW-CV 15.6(H) 11.3 - 14.8 % 06/19/2024 8:24 AM [facility] Platelet Count 311 150 - 420 x10E9/L 06/19/2024 8:24 AM [facility] MPV 8.9 7.8 - 11.4 fL 06/19/2024 8:24 AM [facility] Neutrophil % 50.0 41.0 - 74.0 % 06/19/2024 8:24 AM [facility] Lymphocyte % 38.6 17.0 - 47.0 % 06/19/2024 8:24 AM [facility] Monocyte % 3.2 3.0 - 11.0 % 06/19/2024 8:24 AM [facility] Eosinophil % 7.4(H) 0.0 - 7.0 % 06/19/2024 8:24 AM [facility] Basophil % 0.4 0.0 - 1.6 % 06/19/2024 8:24 AM [facility] Immature Granulocytes % 0.4 0.0 - 1.0 % 06/19/2024 8:24 AM [facility] Neutrophil Absolute 1.43(L) 1.60 - 7.50 x10E9/L 06/19/2024 8:24 AM [facility] Lymphocyte Absolute 1.10 1.00 - 4.40 x10E9/L 06/19/2024 8:24 AM FIRE CONTROL TECHNICIAN G [facility] Monocyte Absolute 0.09(L) 0.15 - 1.00 x10E9/L 06/19/2024 8:24 AM [facility] Eosinophil Absolute 0.21 0.00 - 0.60 x10E9/L 06/19/2024 8:24 AM [facility] Basophil Absolute 0.01 0.00 - 0.13 x10E9/L 06/19/2024 8:24 AM [facility] Blood BLOOD SPECIMEN / Unknown Venipuncture / Unknown 06/19/2024 8:06 AM FIRE CONTROL TECHNICIAN G 06/19/2024 8:22 AM [facility] Dorothy Miranda MD LAB - HEMATOLOGY ORD ERABLES [facility] [address] [place] [phone], [facility] [phone] * (ABNORMAL) COMPREHENSIVE METABOLIC PANEL (06/19/2024 8:06 AM [facility]) BUN 13 7 - 26 mg/dL 06/19/2024 8:49 AM [facility] Creatinine 0.95 0.71 - 1.16 mg/dL 06/19/2024 8:49 AM [facility] Sodium 140 136 - 145 mmol/L 06/19/2024 8:49 AM [facility] Potassium 4.0 3.5 - 4.5 mmol/L 06/19/2024 8:49 AM [facility] Chloride 111(H) 98 - 107 mmol/L 06/19/2024 8:49 AM [facility] CO2 23 22 - 29 mmol/L 06/19/2024 8:49 AM [facility] Glucose 72 70 - 99 mg/dL 06/19/2024 8:49 AM [facility] Calcium 8.8 8.4 - 10.2 mg/dL 06/19/2024 8:49 AM [facility] Protein Total 7.1 6.0 - 8.3 g/dL 06/19/2024 8:49 AM [facility] Albumin 3.3(L) 3.4 - 5.0 g/dL 06/19/2024 8:49 AM [facility] Bilirubin Total 0.4 0.2 - 1.2 mg/dL 06/19/2024 8:49 AM [facility] Alkaline Phosphatase 68 40 - 150 U/L 06/19/2024 8:49 AM [facility] ALT 22 5 - 55 U/L 06/19/2024 8:49 AM [facility] AST 21 5 - 34 U/L 06/19/2024 8:49 AM [facility] Anion Gap 6 6 - 16 06/19/2024 8:49 AM [facility] BUN/Creatinine Ratio 14 7 - 23 06/19/2024 8:49 AM [facility] Osmolality Calculated 289 275 - 295 mOsm/kg 06/19/2024 8:49 AM [facility] Albumin/Globulin Ratio 0.9(L) 1.1 - 2.3 06/19/2024 8:49 AM [facility] eGFR by CKD-EPI >90 >=90 mL/min/1.7 3 m2 06/19/2024 8:49 AM [facility] Blood BLOOD SPECIMEN / Unknown Venipuncture / Unknown 06/19/2024 8:06 AM FIRE CONTROL TECHNICIAN G 06/19/2024 8:21 AM [facility] Dorothy Miranda MD LAB - CHEMISTRY ORDE [facility] Organization Address City/State/ZIP Co de Phone Number [facility] [address] [place] [phone], [facility] [phone] * ALCOHOL ETHYL BLOOD (06/19/2024 8:06 AM [facility]) Ethanol (mg/dL) <10 <10 mg/dL 8:49 AM [facility] Ethanol Calculated (g/dL) <0.010 <=0.010 g/dL 06/19/2024 8:49 AM [facility] Blood BLOOD SPECIMEN / Unknown Venipuncture / Unknown 06/19/2024 8:06 AM FIRE CONTROL TECHNICIAN G 06/19/2024 8:21 AM [facility] Narrative [facility] - 06/19/2024 8:49 AM [facility] Ethanol Interp <10: None Detected. Depression of ANIMAL TRAINER: >100 mg/dl Potentially Critical: >250 mg/dl Potentially Fatal >400 mg/dl Ethanol in the patient's blood will contribute to the osmolar gap. Ethanol's contribution to the osmolar gap can be estimated by dividing the concentration of ethanol in mg/dL by 4.6. This test is for clinical use only and does not equal a MICHAELLE for legal purposes. Dorothy Miranda MD LAB - CHEMISTRY [facility] MELENDRE[facility] [address] [id number] [phone] * HEPATITIS C ANTIBODY (05/04/2024 10:36 AM CDT) [facility] HCV Antibody Screen Non Reactive Non Reactive 05/04/2024 11:12 AM CDT [facility] Blood BLOOD SPECIMEN / Unknown Venipuncture / Unknown 05/04/2024 10:36 AM CDT 05/04/2024 10:36 AM CDT Narrative [facility] - 05/04/2024 11:12 AM CDT Non Reactive - Antibodies to Hepatitis C virus (HCV) were not detected, result does not exclude early acute HCV infection. Monica Christina MD LAB - CHEMISTRY AMANDA MELENDREZ Performing Organization Address City/[facility] Co de Phone Number [facility] [address] [place] [address] from Last 3 Months or Most Recently Relevant to Health Maintenance Advance Directives * Full Code (Latest Code Status on File) Date Activated Date Inactivated Comments 02/15/2024 11:51 PM 02/22/2024 1:47 PM * Full Code Date Activated Date Inactivated Comments 02/11/2024 10:04 PM 02/14/2024 2:17 PM * Full Code Date Activated Date Inactivated Comments 12/24/2023 8:21 PM 12/31/2023 3:34 PM * Full Code Date Activated Date Inactivated Comments 08/01/2023 1:21 AM 08/08/2023 3:59 PM * Full Code Date Activated Date Inactivated Comments 06/12/2023 11:31 PM 06/20/2023 3:15 PM Care Teams Source Water Protection Specialist Relationship Specialty Start Date End Date Mady Sullivan PCP - General 02/03/24
--- OUTSIDE RECORDS SUMMARY | 2024-08-10 03:28 | XMS_ITS | Encounter Summary ---
Author Organization [facility] Address [address] [place] [address] Care Team Providers Care Mangle Catcher Name Role Phone Unavailable Primary Care Provider Unavailabl e Encounter Details Date Type Department Care Team (Latest Contact Info) Description 12/05/2022 Travel Social History Tobacco Use Types Packs/Day [...]
--- OUTSIDE RECORDS SUMMARY | 2024-08-10 03:28 | XMS_ITS | Encounter Summary ---
Author Organization [facility] Address [address] [place] [address] Care Team Providers Care Roller Skate Repairer Name Role Phone Henrique Hardin MD Primary Care Provider [phone] Reason for Visit * Reason Comments Care Coordination Encounter Details Date Type Department Care Team (Late st Contact Info) Description 10/08/2020 Interim Notes [facility] [address] [place] [address] Lawanda, Quirino [address] [place] [address] Social History Tobacco Use Types Packs/Day Years [...] AM PDT documented as of this encounter Progress Notes * Quirino Webber - 10/08/2020 10:54 AM CDT ..New Patient Orientation was completed today: ?? Gave overview of initial appointment expectations and general clinic info. ?? Reviewed procedure for cancelling, rescheduling, no-showing for appointments. ?? Discussed insurance and/or sliding fee scale, as needed. ?? Discussed transportation options and parking. ?? Discussed questions patient has for provider. ?? Assessed barriers to care and problem solved. ?? Education given about services at [facility], including explanation of eligibility for enrollment in Case Management and Brief Services. ?? Offered Medical Home brochure to client, including explanation of Medical Home, and completed the membership card. ?? Education given about responsibilities of enrollment, including patient to notify provider ifthey seek care elsewhere (such as ER visit or hospitalization) and right to opt Out. ?? Discussed RW cap on charges and provided tracking tool. ?? CM notified patient [facility] ?? Follow up needed: Day Time documented in this encounter Plan of Treatment Not on file documented as of this encounter Visit Diagnoses Not on filedocumented in this encounter Additional Health Concerns Assessment Noted Time PHQ-9 Depression Total Score: 021 10:00 AM PDT documented as of this encounter Care Teams Roller Skate Repairer Relationship Specialty Start Date End Date Henrique Hardin MD [address] [place] [address] PCP - General Infectious Diseases 08/29/19 08/18/21 documented as of this encounter
--- OUTSIDE RECORDS SUMMARY | 2024-08-10 03:28 | XMS_ITS | Encounter Summary ---
Author Organization [facility] Address [address] [place] [address] Care Team Providers Care Arnp Name Role Phone Unavailable Primary Care Provider Unavailabl e Reason for Referral * Psychiatry (Routine) - Closed Specialty Diagnoses / Procedures Referred By Ara cazares Referred To Contact Mental Health Diagnoses Bipolar 2 disorder (HCC-CMS) Mady Sullivan MD [address] [place] [id number] Phone: tel: fax: Zana Ramos, GLASSWARE MAKER DEMONSTRATOR, SPECIAL SERVICE OFFICER [address] [place] [address] Phone: tel: fax: Referral ID Status Reason Start Date Expiration Date V isits Requested Visits Authorized [id number] Closed Specialty Services Required 12/05/2022 12/05/2023 1 1 Comments Patient with history of bipolar, mdd, anxiety in chart, noted to have been hospitalized with SI + plan in 06/2022, patient interested in establishing care and appropriate medication management * General Surgery (Urgent) - Closed Specialty Diagnoses / Procedures Referred By Ara cazares Referred To Contact General Surgery Diagnoses Unilateral inguinal hernia with obstruction and without gangrene, recurrence not specified Mady Sullivan MD [address] [place] [address] Phone: tel: fax: Referral ID Status Reason Start Date Expiration Date V isits Requested Visits Authorized [id number] Closed Specialty Services Required 12/05/2022 12/05/2023 1 1 Comments 27 Yo man with HIV (not well controlled before but recently on meds for 1 month, has establised good family support, CD4 pending) has a very large Right inguinal hernia that has progressed maybe over 10 years, now having moderate cramping pain and nausea. No episodes of vomiting or fevers reported. Please call if any questions: Mary Sullivan at [facility] Reason for Visit * Reason Comments HIV Follow Up Encounter Details Date Type Department Care Team (Latest Contact Info) Description 12/05/2022 10:00 AM CDT Office Visit [address] [address] Mady Sullivan MD [address] [place] [phone] Unilateral inguinal hernia with obstruction and without gangrene, recurrence not specified (Primary Dx); Screening examination for STD (sexually transmitted disease); Need for hepatitis C screening test; Human immunodeficiency virus (HIV) disease (HCC-CMS); Erythema multiforme; Bipolar 2 disorder (HCC-CMS) Social History Tobacco Use Types Packs/Day Years [...] AM CDT documented as of this encounter Last Filed Vital Signs Vital Sign Reading Time Taken Comments Blood Pressure 145/91 12/05/2022 10:44 AM CDT Pulse 63 12/05/2022 10:44 AM CDT Temperature 36.3 ??C (97.3 ??F) 12/05/2022 1 0:44 AM CDT Respiratory Rate - - Oxygen Saturation 99% 12/05/2022 10: 44 AM CDT Inhaled Oxygen Concentration - - Weight 78.4 kg (172 lb 12.8 oz) 023 10:44 AM CDT Height 182.9 cm (6') 12/05/2022 10:44 AM CDT Body Mass Index 23.44 12/05/2022 10:44 AM CDT documented in this encounter Progress Notes * Mady Sullivan MD - 12/05/2022 10:00 AM CDT Images from the original note were not included. HPI: Phil Chase is a 27 year old male who presented to [facility] clinic for follow-up of HIV infection. Patient was last seen in clinic on 10/08/[address] Hardin. Last CD4 count and VL: Lab Results Component Value Date CD4 148 (L) 10/08/2020 Lab Results Component Value Date COPIESML 355,000 (H) 10/08/2020 Background History: Patient initially diagnosed in 2018 but started treatment much later was on Dovato. His genotype had K103N and L210W mutations. His initial HIV VL went from 17,307 down to 71 after 1 month of treatment. His CD4 cell ct increased from 6 up to 66 in the same time period. Per previous visit with Dr. Hardin Dovato and Bactrim for 9 months, though without clinic visits or labs. He had thrush at diagnosis which has long since resolved. He had a pruritic hyperpigmented rash at diagnosis - mostly on the lower extremities. A biopsy revealed a psoriaform reaction and it resolved with topical steroids and treatment of his HIV. He has hyperpigmented scarring on his legs and loss of pigmentation on hispenis. He has a history of transverse myelitis diagnosed at the time of his HIV diagnosis. It has left himwith chronic right leg weakness and foot drop. He initially used a walker and as of last visit was able to ambulate with limping. He did not do PT/OT or f/u Neurologist. He has paresthesias in the right lower extremity and was placed on Gabapentin with no to minimal improvement. He had syphlis with an RPR of 1:128 and was treated with Bicillin weekly x 3 (per notes, unable to ascertain date). His repeat RPR was 1:6 las visit Interval History: Patient left for [place] from May 2021 - Feb 2022. While there, he was seen for care and changed fromDovato to Biktarvy. He returned since most of his family support was in [place]. He is here with mom Sarah (who also works in healthcare) Says he restarted biktarvy 1 month ago with good adherence without any issues. In 06/26/2022 he was hospitalized at [facility] for suicide plan after finding outhis partner was HIV positive, losing his job and unstable housing. At that time diagnosis of bipolar, depression and anxiety noted. WE did not discuss this history but he does not he has no SI currently and is interested in psychiatry referral He has a large right inguinal hernia which was noted in last visit. Referral was made to general surgery but he had left out of state. Since then the hernia has progressed with significant discomfort, including cramping abdominal pain and nausea. No vomiting, no fevers. He has some skin breakdown based on the size. He had anal warts and saw colorectal surgery at [facility] and underwent removal. As far as he can tell he has not had any return and is asymptomatic. Has pruritic rash all over his body except face (not on palms or soles). No involvement of mucosal membranes He is currently living with his grandfather in stable housing. Has supportive family and friend network in the area. He says he is doing much better in last few months after having a very hard time. No issues with transportation. Working on his health and interested in returning to work when well. Interested in STI screening. Allergies: No Known Allergies Medications: Current Outpatient Medications Medication Sig Dispense Refill gcohbkhgr-leeubycz-eevtomi ala (BIKTARVY) 50-200-25 mg tab Take 1 Tablet by mouth once daily 30 Tablet 2 sertraline (ZOLOFT) 50 mg tablet Take 1 Tablet by mouth daily. 30 Tablet 2 triamcinolone (KENALOG) 0.1 % ointment Apply topically [...] for this visit. Review of Systems: General: denies unexplained weight loss, night sweats and fever Skin: per hpi Lymph: denies localized enlargement of lymph nodes Eyes: denies decreased visual acuity and eye pain Mouth: denies gum disease, ulcers, oral lesions and pain Cardiopulmonary: denies chest pain, shortness of breath and palpitations Gastrointestinal: per hpi Psych: per hpi Genitourinary: denies dysuria and urethral discharge or lesions Musculoskeletal: denies back pain and joint pain Physical Exam: Vitals: Last 3 Vitals Flowsheet Row [email or web address] Visit from 08/29/2019 in [facility] Temp 97.3 ??F (36.3 ??C) 98.7 ??F (37.1 ??C) 98.5 ??F (36.9 ??C) Pulse 63 68 112 BP 145/91 132/92 140/83 Resp -- -- -- Weight 172 lb 12.8 oz (78.4 kg) 178 lb 12.8 oz (81.1 kg) 152 lb 9.6 oz (69.2 kg) Exam: Alert, NAD, nervous affect but alert, conversive EOMI, no conjunctival injection, CHRISTOPHER No oral lesions or cervical LAD appreciated RRR no m/r/g Ctab Abd soft nontender Right scrotum is enlarged, >grapefruit, overlying skin breakdown though in various stages of healing no redness, induration or warmth Laboratory Data: Routine: Latest Ref Rng & Units 10/08/2020 11:25 AM HIV HIV Viral Load NOT DETECTED copies/mL 355,000 Latest Ref Rng & Units 10/08/2020 11:25 AM CBC White blood cell count 3.8 - 10.8 Thousand/uL 2.5 Hemoglobin 13.2 - 17.1 g/dL 15.3 Hematocrit 38.5 - 50.0 % 47.8 Platelets 140 - 400 Thousand/uL 336 Latest Ref Rng & Units 10/08/2020 11:25 AM Liver Enzymes AST 10 - 40 U/L 26 ALT 9 - 46 U/L 24 Alk phos 36 - 130 U/L 80 Bilirubin total 0.2 - 1.2 mg/dL 0.6 Latest Ref Rng & Units 10/08/2020 11:25 AM Creatinine Creatinine 0.60 - 1.35 mg/dL 1.08 Annuals: Lab Results Component Value Date QUANTIFERON NEGATIVE 10/08/2020 Lab Results Component Value Date HEPCABQL NON-REACTIVE 10/08/2020 Lab Results Component Value Date HGBA1C 5.2 07/31/2019 Lab Results Component Value Date CHOL 191 10/08/2020 HDL 47 10/08/2020 LDL 127 (H) 10/08/2020 TRIGLYC 75 10/08/2020 Lab Results Component Value Date URPROT 1+ (A) 10/08/2020 URGLUC NEGATIVE 10/08/2020 No results found for: [id number] Lab Results Component Value Date HEPAABQL REACTIVE (A) 10/08/2020 HBSAB NON-REACTIVE 10/08/2020 HBSAGQL NON-REACTIVE 10/08/2020 STI: Lab Results Component Value Date RPR REACTIVE (A) 10/08/2020 Lab Results Component Value Date CHLAMYDIA NOT DETECTED 10/08/2020 GC NOT DETECTED 10/08/2020 Immunization History Administered Date(s) Administered HEP B, ADULT/ADOL 08/06/2019 PNEUMOCOCCAL CONJUGATE PCV 13 08/06/2019 PNEUMOCOCCAL POLYSACCHARIDE PPV23 08/06/2019 Problem List: Patient Active Problem List Diagnosis HIV infection (HCC-CMS) Syphilis Right foot drop 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[facility]) Anal warts HSV infection Assessment/Plan: Phil was seen today for hiv and follow up. Diagnoses and all orders for this visit: Unilateral inguinal hernia with obstruction and without gangrene, recurrence not specified - REFERRAL TO GENERAL SURGERY Screening examination for STD (sexually transmitted disease) - RPR (MONITOR) W/REFL TITER - C TRACHOMATIS/N GONORRHOEAE RNA,TMA - CHLAMYDIA/GONORRHOEAE RNA, TMA, THROAT - CHLAMYDIA/GONORRHEA, RNA TMA, RECTAL Need for hepatitis C screening test - HEPATITIS C AB W/RFLX HCV RNA, QT, RT PCR Human immunodeficiency virus (HIV) disease ([facility]) - BLOOD COUNT COMPLETE AUTO&AUTO DIFRNTL WBC - COMPREHENSIVE METABOLIC PANEL - HIV-1 RNA QUANT REAL TIME PCR, PLASMA - LYMPHOCYTE SUBSET PANEL 5 Erythema multiforme - triamcinolone (KENALOG) 0.1 % ointment; Apply topically 2 (two) times daily Bipolar 2 disorder ([facility]) - REFERRAL TO PSYCHIATRIC ASSESSMENT AND EVALUATION Other orders - jknklbiwv-ncxmrxky-wbhlbjy ala (BIKTARVY) 50-200-25 mg tab; Take 1 Tablet by mouth once daily HIV - continue with Biktarvy - encouraged continuing adherence to improve other conditions, risk of resistance, - labs today - 3 site STI screen R Inguinal vs femoral Hernia with symptoms - 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, has progressed since then - having intermittent nausea and abdominal cramps, no vomitng/no fever - has scrotal skin breakdown (healing) - very large, impacting movement mechanics - refer to general surgery, should be able to go to [facility] on 12/19 - discussed red flag symptoms that should prompt going to ED Suspected Erythema Migrans - all over his body and limbs, pruritic, flat, targetoid, pigmented - ddx includes syphilis (RPR pending), eczema (has childhood history) or other - I suspect this will improve with this HIV control, it is possible a different infection is causing - moderate strength steroid ointment (kenalog) for symptom care - if no improvement with hiv control will pursue further work up Bipolar Major depression RENEE - recent hospitalization 06/2022 for SI with a plan - patient reports doing much better, especially with family support - denies SI today - referral to psychiatry for follow up - consider therapy referral next visit prn Transverse Myelitis - complicated by chronic right foot drop - referral made to PT last visit, can consider re-opening Cervical LAD - noted last visit, will reassess next visit History of Anal Warts - s/p [facility] colorectal surgery removal per patient report (unable to access notes) - reports no symptoms - will need anal pap and monitoring Access to care/care coordination - working with Ines who saw him this visit - signed release to get records from [facility] - has [facility] - will review screenings and immunizations next visit Follow Up: Return in about 2 months (around 02/04/2023). Total time spent today on today's visit including both face to face time and non-face to face time personally spent on history taking and exam, review of labs, medications, care gaps, and informationin CareEverywhere, discussing labs, treatment plans, goals, and referrals to specialists if needed,and answering patient's questions and coordinating care: 51 minutes documented in this encounter Plan of Treatment Scheduled Referrals Name Type Priority Associated Diagnoses Orde r Schedule REFERRAL TO GENERAL SURGERY Referral Urgent Unilateral inguinal hernia with obstruction and without gangrene, recurrence not specified Ordered: 12/05/2022 REFERRAL TO PSYCHIATRIC ASSESSMENT AND EVALUATION Referral Routine Bipolar 2 disorder ([facility]) Ordered: 12/05/2022 documented as of this encounter Procedures Procedure Name Priority Date/Time Associated Diagnosis Comments LYMPHOCYTE SUBSET PANEL 5 Routine 12/05/2022 11:56 AM CDT Human immunodeficiency virus (HIV) disease ([facility]) HEPATITIS C AB W/RFLX HCV RNA, QT, RT PCR Routine 12/05/2022 11:41 AM CDT Need for hepatitis C screening test CHLAMYDIA/GONORRHOEA E RNA, TMA, THROAT Routine 12/05/2022 11:41 AM CDT Screening examination for STD (sexually transmitted disease) C TRACHOMATIS/N GONORRHOEAE RNA,TMA Routine 12/05/2022 11:41 AM CDT Screening examination for STD (sexually transmitted disease) RFLX - RPR TITER Routine 12/05/2022 11:4 1 AM CDT CHLAMYDIA/GONORRHEA, RNA TMA, RECTAL Routine 12/05/2022 11:41 AM CDT Screening examination for STD (sexually transmitted disease) HIV-1 RNA QUANT REAL TIME PCR, PLASMA Routine 12/05/2022 11:41 AM CDT Human immunodeficiency virus (HIV) disease ([facility]) RPR (MONITOR) W/REFL TITER Routine 12/05/2022 11:41 AM CDT Screening examination for STD (sexually transmitted disease) BLOOD COUNT COMPLETE AUTO&AUTO DIFRNTL WBC Routine 12/05/2022 11:41 AM CDT Human immunodeficiency virus (HIV) disease ([facility]) COMPREHENSIVE METABOLIC PANEL Routine 12/05/2022 11:41 AM CDT Human immunodeficiency virus (HIV) disease ([facility]) documented in this encounter Results * (ABNORMAL) LYMPHOCYTE SUBSET PANEL 5 (12/05/2022 11:56 AM CDT) [facility] % CD4 (HELPER CELLS) 8(L) 30 - 61 % [facility] [place] ABSOLUTE CD4+ CELLS 120(L) 490 - 1,740 cells/uL [facility] [place] [facility] ABSOLUTE LYMPHOCYTES 1,432 850 - 3,900 cells/uL [facility] [place] [facility] Blood Blood / Unknown 12/05/2022 1 1:56 AM CDT 12/05/2022 11:57 AM CDT Mady Sullivan MD LAB - BLOOD DRAW Final Result [facility] [place] [address] [place] [address] [facility] [place] [address] [place] [address] * (ABNORMAL) RFLX - RPR TITER (12/05/2022 11:41 AM CDT) Pathologist [facility] RPR TITER 1:8(H) 0.9 [facility] [place] 12/05/2022 11:4 1 AM CDT 12/05/2022 11:42 AM CDT Mady Sullivan MD LAB - BLOOD DRAW Edite d Result - Final [facility] [place] [address] [facility] [place] [address], [facility] [place] [address] [place] [address] * HEPATITIS C AB W/RFLX HCV RNA, QT, RT PCR (12/05/2022 11:41 AM CDT) [facility] HEPATITIS C ANTIBODY NON-REACT FARTUN NON-REACT FARTUN [facility] [place] SIGNAL TO CUT-OFF 0.49 <1.00 [facility] [place] Comment: HCV antibody was non-reactive. There is no laboratory evidence of HCV infection. In most cases, no further action is required. However, if recent HCV exposure is suspected, a test for HCV RNA (test code 46561) is suggested. For additional information please refer to http://education.Bar Saint/faq/VFI00b6 (This link is being provided for informational/ educational purposes only.) Blood Blood / Unknown 12/05/2022 1 1:41 AM CDT 12/05/2022 11:42 AM CDT Mady Sullivan MD LAB - BLOOD DRAW Edite d Result - Final [facility] [address] [facility] [place] [address], [employer] [address] [facility] [place] [place] [address] * (ABNORMAL) CHLAMYDIA/GONORRHEA, RNA TMA, RECTAL (12/05/2022 11:41 AM CDT) CHLAMYDIA TRACHOMATIS RNA, TMA, RECTAL DETECTED(A) [facility] NEISSERIA GONORRHOEAE RNA, TMA, RECTAL NOT DETECTED [facility] Comment: REFERENCE RANGE: ??NOT DETECTED Methodology: ??[employer] Machine Operator Mediated Amplification (TMA) to detect RNA. The analytical performance characteristics of this assay have been determined by [facility]. The modifications have not been cleared or approved by the FDA. This assay has been validated pursuant to the CLIA regulations and is used for clinical purposes. Swab Specimen from rectum / Unknown 12/05/2022 11:41 AM CDT 12/05/2022 11:42 AM CDT us Mady Sullivan MD LAB - NO BLOOD DRAW Fi nal Result [facility] [place] [address] [place] [address] [facility] [employer]/[facility] [id number] [place] [address] * CHLAMYDIA/GONORRHOEAE RNA, TMA, THROAT (12/05/2022 11:41 AM CDT) CHLAMYDIA TRACHOMATIS RNA, TMA, THROAT NOT DETECTED [facility] NEISSERIA GONORRHOEAE RNA, TMA, THROAT NOT DETECTED [facility] Comment: REFERENCE RANGE: ??NOT DETECTED Methodology: ??B[employer] Tile Making Machine Operator Mediated Amplification (TMA) to detect RNA. The analytical performance characteristics of this assay have been determined by [facility]. The modifications have not been cleared or approved by the FDA. This assay has been validated pursuant to the CLIA regulations and is used for clinical purposes. For additional information, please refer to https://education.Dang Le.SCI Solution/faq/QHQ083 (This link is being provided for informational/educational purposes only.) Swab Structure of anterior portion of neck / Unknown 12/05/2022 11:41 AM CDT 12/05/2022 11:42 AM CDT us Mady Sullivan MD LAB - NO BLOOD DRAW Ed ited Result - Final [facility] [place] [address] [place] [address] [facility] [address] [place] [address] * C TRACHOMATIS/N GONORRHOEAE RNA,TMA (12/05/2022 11:41 AM CDT) Pathologist [facility] CHLAMYDIA TRACHOMATIS RNA, TMA NOT DETECTED NOT DETECTED [facility] [place] NEISSERIA GONORRHOEAE RNA, TMA NOT DETECTED NOT DETECTED [facility] [place] COMMENT [facility] [place] Urine Urine specimen / Unknown 12/05/2022 11:41 AM CDT 12/05/2022 11:42 AM CDT Narrative [facility] [place] - 12/11/2022 2:01 AM CDT The analytical performance characteristics of this assay, when used to test SurePath(TM) specimens have been determined by [facility]. The modifications have not been cleared or approved by the FDA. This assay has been validated pursuant to the CLIA regulations and is used for clinical purposes. For additional information, please refer to https://education.Bar Saint/faq/RWS435 (This link is being provided for information/ educational purposes only.) Mady Sullivan MD LAB - NO BLOOD DRAW Ed ited Result - Final Performing Organization Address City/[facility] Co de Phone Number [facility] [place] [address] [place] [address], [facility] [place] [address] [place] [address] * (ABNORMAL) RPR (MONITOR) W/REFL TITER (12/05/2022 11:41 AM CDT) Pathologist [facility] RPR (MONITOR) W/REFL TITER REACTIVE( A) NON-REACT FARTUN [facility] [place] Comment: The RPR is a xpw-knbnuddueg-doytmwfn test; therefore, a treponemal-specific confirmatory test should be performed unless prior syphilis infection has been documented for this patient. Blood Blood / Unknown 12/05/2022 1 1:41 AM CDT 12/05/2022 11:42 AM CDT us Mady Sullivan MD LAB - BLOOD DRAW Edite d Result - Final [facility] [address] [place], [place] [address], [facility] [place] [address] [place] [address] * (ABNORMAL) HIV-1 RNA QUANT REAL TIME PCR, PLASMA (12/05/2022 11:41 AM CDT) COPIES/ML 50(H) NOT DETECTED copies/mL [facility] [place] LOG COPIES/ML 1.70(H) NOT DETECTED Log copies/mL [facility] [place] Comment: This test was performed using Real-Time Polymerase Chain Reaction. Reportable Range: 20 copies/mL to 10,000,000 copies/mL (1.30 log copies/mL to 7.00 log copies/mL). Blood Blood / Unknown 12/05/2022 1 1:41 AM CDT 12/05/2022 11:42 AM CDT us Mady Sullivan MD LAB - BLOOD DRAW Edite d Result - Final Performing Organization Address City/[facility]/ZIP Co de Phone Number [facility] [address] [place] [address], [facility] [place] [address] [facility] [place] [address] * (ABNORMAL) COMPREHENSIVE METABOLIC PANEL (12/05/2022 11:41 AM CDT) GLUCOSE 82 65 - 99 mg/dL [facility] [place] Comment: ?Fasting reference interval UREA NITROGEN (BUN) 8 7 - 25 mg/dL [facility] [place] CREATININE (blood) 0.94 0.60 - 1.24 mg/dL [facility] [place] EGFR 113 > OR = 60 mL/min/1 .73m2 [facility] [place] Comment: The eGFR is based on the CKD-EPI 2020 equation. To calculate the new eGFR from a previous Creatinine or Cystatin C result, go to https://www.kidney.org/professionals/ kdoqi/gfr%5Fcalculator BUN/CREATININE RATIO NOT APPLICABLE 6 - [facility] [place] SODIUM 138 135 - 146 mmol/L [facility] [place] POTASSIUM 3.9 3.5 - 5.3 mmol/L [facility] [place] CHLORIDE 101 98 - 110 mmol/L [facility] [place] CARBON DIOXIDE 26 20 - 32 mmol/L [facility] [place] CALCIUM 9.8 8.6 - 10.3 mg/dL [facility] [place] PROTEIN, TOTAL 10.4(H) 6.1 - 8.1 g/dL [facility] [place] ALBUMIN 4.4 3.6 - 5.1 g/dL [facility] [place] GLOBULIN 6.0(H) 1.9 - 3.7 g/dL (calc) [facility] [place] ALBUMIN/GLOBULI N RATIO 0.7(L) 1.0 - 2.5 (calc) [facility] [place] BILIRUBIN, TOTAL 0.4 0.2 - 1.2 mg/dL [facility] [place] ALKALINE PHOSPHATASE 90 36 - 130 U/L [facility] [place] AST 14 10 - 40 U/L [facility] [place] ALT 13 9 - 46 U/L [facility] [place] Blood Blood / Unknown 12/05/2022 1 1:41 AM CDT 12/05/2022 11:42 AM CDT Mady Sullivan MD LAB - BLOOD DRAW Edite d Result - Final [facility] [employer] [place] [address] [place] [address], [facility] [place] [address] [place] [address] * (ABNORMAL) BLOOD COUNT COMPLETE AUTO&AUTO DIFRNTL WBC (12/05/2022 11:41 AM CDT) WHITE BLOOD CELL COUNT 4.4 3.8 - 10.8 Thousand/ uL [facility] [place] RED BLOOD CELL COUNT 6.18(H) 4.20 - 5.80 Million/u L [facility] [place] HEMOGLOBIN 13.9 13.2 - 17.1 g/dL [facility] [place] HEMATOCRIT 46.2 38.5 - 50.0 % [facility] [place] MCV 74.8(L) 80.0 - 100.0 fL [facility] [place] MCH 22.5(L) 27.0 - 33.0 pg [facility] [place] MCHC 30.1(L) 32.0 - 36.0 g/dL [facility] [place] RDW 19.6(H) 11.0 - 15.0 % [facility] [place] PLATELET COUNT 398 140 - 400 Thousand/ uL [facility] [place] MPV 11.3 7.5 - 12.5 fL [facility] [place] ABSOLUTE NEUTROPHILS 2,121 1,500 - 7,800 cells/uL [facility] [place] ABSOLUTE LYMPHOCYTES 1,421 850 - 3,900 cells/uL [facility] [place] ABSOLUTE MONOCYTES 198(L) 200 - 950 cells/uL [facility] [place] ABSOLUTE EOSINOPHILS 620(H) 15 - 500 cells/uL [facility] [place] ABSOLUTE BASOPHILS 40 0 - 200 cells/uL [facility] [place] NEUTROPHILS PCT 48.2 % [facility] [place] LYMPHOCYTES 32.3 % [facility] [place] MONOCYTES 4.5 % [facility] [place] EOSINOPHILS 14.1 % [facility] [place] BASOPHILS 0.9 % [facility] [place] Blood Blood / Unknown 12/05/2022 1 1:41 AM CDT 12/05/2022 11:42 AM CDT Mady Sullivan MD LAB - BLOOD DRAW Edite d Result - Final [facility] [id number] [id number], [facility] [id number] [address] [id number] documented in this encounter Visit Diagnoses Diagnosis Unilateral inguinal hernia with obstruction and without gangrene, recurrence not specified- Primary Screening examination for STD (sexually transmitted disease) Screening examination for venereal disease Need for hepatitis C screening test Special screening examination for other specified viral diseases Human immunodeficiency virus (HIV) disease (HCC-CMS) Human immunodeficiency virus [HIV] disease Erythema multiforme Bipolar 2 disorder (HCC-CMS) Other bipolar disorders documented in this encounter Additional Health Concerns Assessment Noted Time PHQ-9 Depression Total Score: 6 12/06/19 23 12:00 PM PDT documented as of this encounter
--- OUTSIDE RECORDS SUMMARY | 2024-08-10 03:28 | XMS_ITS | Encounter Summary ---
Author Organization [facility] Address [address] [place] [address] Care Team Providers Care Telephone Station Repairer Name Role Phone Henrique Hardin MD Primary Care Provider [phone] Reason for Referral * Physical Therapy (Routine) - Closed Specialty Diagnoses / Procedures Referred By Contac t Referred To Contact Physical Therapy Diagnoses 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[facility]) Henrique Hardin MD [address] [place] [address] Phone: tel: fax: Referral ID Status Reason Start Date Expiration Date V isits Requested Visits Authorized [id number] Closed Specialty Services Required 10/08/2020 10/08/2021 1 1 Comments Transverse myelitis, Right foot drop * General Surgery (Routine) - Closed Specialty Diagnoses / Procedures Referred By Contac t Referred To Contact Diagnoses Anal warts Henrique Hardin MD [address] [place] [address] Phone: tel: fax: Referral ID Status Reason Start Date Expiration Date V isits Requested Visits Authorized [id number] Closed Specialty Services Required 10/08/2020 10/07/2025 1 1 Comments HIV, Anal Warts Reason for Visit * Reason Comments Establish Care HIV Encounter Details Date Type Department Care Team (Late st Contact Info) Description 10/08/2020 10:30 AM CDT Office Visit [facility] [address] [place] [phone] Henrique Hardin MD [address] [place] [address] Asymptomatic HIV infection (HCC-CMS) (Primary Dx); 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HCC-CMS); LAD (lymphadenopathy) of left cervical region; Exposure to STD; Right inguinal hernia; Anal warts Social History Tobacco Use Types Packs/Day Years [...] AM PDT documented as of this encounter Last Filed Vital Signs Vital Sign Reading Time Taken Comments Blood Pressure 132/92 10/08/2020 10:30 AM CDT Pulse 68 10/08/2020 10:30 AM CDT Temperature 37.1 ??C (98.7 ??F) 10/08/2020 1 0:30 AM CDT Respiratory Rate - - Oxygen Saturation 99% 10/08/2020 10: 30 AM CDT Inhaled Oxygen Concentration - - Weight 81.1 kg (178 lb 12.8 oz) 021 10:30 AM CDT Height 182.9 cm (6') 10/08/2020 10:30 AM CDT Body Mass Index 24.25 10/08/2020 10:30 AM CDT documented in this encounter Progress Notes * Henrique Hardin - 10/08/2020 11:31 AM CDT The patient presents to transfer HIV care. He was originally diagnosed in 2018, but it took him time to initiate his antiretroviral therapy. He reports he has only ever been on Dovato for his HIV. His genotype had K103N and L210W mutations. His initial HIV VL went from 17,307 down to 71 after 1 month of treatment. His CD4 cell ct increased from 6 up to 66 in the same time period. He then stopped going to the clinic and has continued Dovato and Bactrim for 9 months without labs. He had thrush atdiagnosis which has long since resolved. He had a pruritic hyperpigmented rash at diagnosis - mostly on the lower extremities. A biopsy revealed a psoriaform reaction and it resolved with topical steroids and treatment of his HIV. He is left with hyperpigmented scarring on his legs and loss of pigmentation on his penis. He has a history of transverse myelitis diagnosed at the time of his HIV diagnosis. It has left himwith chronic right leg weakness and foot drop. He initially used a walker and now is able to ambulate with limping. He denies ever going to PT/OT. He never followed up with the Neurologist. He has paresthesias in the right lower extremity and was placed on Gabapentin with no to minimal improvement. He had syphlis with an RPR of 1:128 and was treated with Bicillin weekly x 3. His repeat RPR was 1:64. He has anal warts and never went to the Colorectal surgeon to have them biopsied/removed. He has a large right inguinal hernia and never went to the General surgeon to have it repaired. He denies pain, nausea, or vomiting. He has no bowel changes. He has noticed a swelling in his left neck that spontaneously ruptured and drained several weeks ago. He is left with a large lump in that location that is non-tender. He denies any fever, chills, sweats, dental issues, or respiratory issues. PMHx: HIV, Transverse Myelitis with Right Foot Drop, HSV, Questionable Psoriasis, Syphilis, Thrush,Anal Warts Meds: Dovato, Bactrim, Gabapentin All: NKDA FHx: Mother alive and well. Father alive with DM II and HTN. 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 He is in emergency housing. He uses Uber or medical transport. He denies tobacco or illicit drug use. He occasionally drinks alcohol and uses marijuana. ROS: Gen: Poor health, No sleep problems, No fever, No weight change, No fatigue Skin: Positive rash, No itching HEENT: No sinus congestion, No sore throat, No allergies, No hearing changes, No vision changes Respiratory: No cough, no SOB, No wheezing Cardiololgy: No chest pain, No palpitations, No lower extremity edema, No dizziness GI: No abdominal pain, No nausea, No bowel changes, No blood in stools, No heartburn : No urinary frequency, No discharge, No dysuria, No hematuria Heme: No abnormal bleeding, No easy bruising, No swollen glands Musculoskeletal: No arthritis, Right leg/foot weakness Psych: Mild anxiety, No depression PE: Gen: Well nourished in NAD. Skin: Hyperpigmented, flat scars on his lower extremities and groin. Loss of skin pigment on his penis/scroutm. HEENT: WALLPAPER HANGER patent, PERRL, Conj pink, sclera anicteric, MMM, no thrush, 3+ tonsils, good dentition. Neck: Supple, Large firm, non-tender, mobile LAD left anterior cervical chain, no thyromegaly, no carotid bruits. Chest: CTA bilaterally without wheezes. CV: RRRwithout murmur. Abdomen: Soft, NT, ND, no HSM, active BS. : Normal penis and testicles, except skin changes as above. Large reducible right inguinal hernia. Extremity: No cyanosis, clubbing, or edema. 2+ radial/DP pulses bilaterally. Neuro: Gait normal, A&O x 4, CN 2-12 intact bilaterally, reflexes 2+ brachial and patellar. Motor 5/5 throughout, except for 4+/5 RLE with right foot drop. He has muscle tightness and rigidity of the right lower extremity. Sensory normal grossly. Urinalysis - 1+ ketones, 1+ protein A/P: HIV - The natural history of HIV is reviewed with the patient. He is advised on the need for perfect compliance with both medications and office appointments to ensure virologic suppression and to help prevent the development of HIV drug resistance. The prior etiology of his rash remains unclear, though now is just scar tissue. Will check CBC, BMP, LFTs, Lipid panel, CD4 cell ct, and HIV VL. Willscreen for tuberculosis. Transverse Myelitis/Right Foot Drop - This is likely chronic at this point. Will ensure virologic control. He is referred to physical therapy. Cervical LAD - This is quite concerning for infection or malignancy. No other symptoms or exam finding is present to help differentiate. Will send for a CT of the neck. Exposure to STD - He is advised on safe sex practices. Will screen for gonorrhea, chlamydia, syphilis, hepatitis A, hepatitis B, and hepatitis C. Inguinal Hernia - Will refer to General surgery after it is clear that his HIV is well controlled. He is advised to go to the ER with symptoms of incarceration. Anal Warts - He is referred to Colorectal surgery for excision and biopsy. The patient will return to clinic in 1 month's time for follow up, sooner as needed. documented in this encounter Plan of Treatment Scheduled Referrals Name Type Priority Associated Diagnoses Orde r Schedule REFERRAL TO COLORECTAL SURGERY Referral Routine Anal warts Ordered: 10/08/2020 REFERRAL TO PHYSICAL THERAPY Referral Routine 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HCC-CMS) Ordered: 10/08/2020 documented as of this encounter Procedures Procedure Name Priority Date/Time Associated Diagnosis Comments URINALYSIS, ACCUTEST (POCT) Routine 10/08/2020 11:52 AM CDT Asymptomatic HIV infection ([facility]) QUANTIFERON-TB GOLD PLUS Routine 10/08/2020 11:25 AM CDT Asymptomatic HIV infection ([facility]) HEPATITIS C AB W/RFLX HCV RNA, QT, RT PCR Routine 10/08/2020 11:25 AM CDT Exposure to STD C TRACHOMATIS/N GONORRHOEAE RNA,TMA Routine 10/08/2020 11:25 AM CDT Exposure to STD RFLX - RPR TITER Routine 10/08/2020 11:2 5 AM CDT HIV-1 RNA QUANT REAL TIME PCR, PLASMA Routine 10/08/2020 11:25 AM CDT Asymptomatic HIV infection (HCC-CMS) LYMPHOCYTE SUBSET PANEL 3 (T-CELLS) Routine 10/08/2020 11:25 AM CDT Asymptomatic HIV infection (HCC-CMS) HEPATITIS B SURFACE AG, EIA WITH REFLEX CONFIRM Routine 10/08/2020 11:25 AM CDT Exposure to STD RPR (MONITOR) W/REFL TITER Routine 10/08/2020 11:25 AM CDT Exposure to STD HEPATITIS A ANTIBODY HAAB Routine 10/08/2020 11:25 AM CDT Exposure to STD HEPATITIS B SURF ANTIBODY HBSAB Routine 10/08/2020 11:25 AM CDT Exposure to STD BLOOD COUNT COMPLETE AUTO&AUTO DIFRNTL WBC Routine 10/08/2020 11:25 AM CDT Asymptomatic HIV infection (HCC-CMS) LIPID PANEL Routine 10/08/2020 11:25 AM CDT Asymptomatic HIV infection (HCC-CMS) COMPREHENSIVE METABOLIC PANEL Routine 10/08/2020 11:25 AM CDT Asymptomatic HIV infection (HCC-CMS) documented in this encounter Results * (ABNORMAL) URINALYSIS, ACCUTEST (POCT) (10/08/2020 11:52 AM CDT) URINE COLOR YELLOW STRAW, YELLOW, LIGHT YELLOW [facility] CLARITY OF URINE CLEAR CLEAR [facility] URINE GLUCOSE (POCT) NEGATIVE NEGATIVE mg/dL [facility] URINE BILIRUBIN 3+(A) NEGATIVE mg/dL [facility] URINE KETONES 1+(A) NEGATIVE mg/dL [facility] URINE SPECIFIC GRAVITY 1.020 1.000 - 1.030 [facility] URINE BLOOD NEGATIVE NEGATIVE [place]/uL [facility] URINE PH 7.0 5.0 - 9.0 [facility] URINE PROTEIN 1+(A) NEGATIVE mg/dL [facility] URINE UROBILINOGEN 4.0(A) NORMAL mg/dL [facility] URINE NITRITE NEGATIVE NEGATIVE [facility] URINE LEUKOCYTES NEGATIVE NEGATIVE Shi/uL [facility] Urine Urine specimen / Unknown 10/08/2020 11:52 AM CDT Henrique Hardin MD LAB - NO BLOOD DRAW Final Result Performing Organization Address [facility] de Phone Number [facility] * (ABNORMAL) RFLX - RPR TITER (10/08/2020 11:25 AM CDT) RPR TITER 1:32(H) 0.9 [facility] [place] 10/08/2020 11:2 5 AM CDT 10/08/2020 11:27 AM CDT Henrique Hardin MD LAB - BLOOD DRAW Edited Re sult - Final Performing Organization Address [facility] Co de Phone Number [facility] [employer] [place] [address] [address] [place] [address], [facility] [place] [address] [place] [address] * (ABNORMAL) RPR (MONITOR) W/REFL TITER (10/08/2020 11:25 AM CDT) RPR (MONITOR) W/REFL TITER REACTIVE( A) NON-REACT FARTUN [facility] [place] Comment: The RPR is a cvx-fnajjlwvit-symhvycy test; therefore, a treponemal-specific confirmatory test should be performed unless prior syphilis infection has been documented for this patient. Blood Blood / Unknown 10/08/2020 1 1:25 AM CDT 10/08/2020 11:27 AM CDT Henrique Hardin MD LAB - BLOOD DRAW Edited Re sult - Final [employer] [place] [address] [place] [address], [facility] [address] [place] [address] * QUANTIFERON-TB GOLD PLUS (10/08/2020 11:25 AM CDT) [facility] QUANTIFERON NEGATIVE NEGATIVE [facility] [place] Comment: Negative test result. M. tuberculosis complex infection unlikely. NIL 0.13 IU/mL [facility] [place] MITOGEN-NIL 8.86 IU/mL [facility] [place] TB1-NIL <0.00 IU/mL [facility] [place] TB2-NIL <0.00 IU/mL [facility] [place] Comment: The Nil [...] T-lymphocytes. For additional information, please refer to https://education.Noonswoon.Solexa/faq/JLP493 (This link is being provided for informational/ educational purposes only.) Blood Blood / Unknown 10/08/2020 1 1:25 AM CDT 10/08/2020 11:27 AM CDT Henrique Hardin MD LAB - BLOOD DRAW Edited Re sult - Final Performing Organization Address [facility]/ZIP Co de Phone Number [facility] [place] [address] [address] [facility] [place], [place] [address] [phone] [facility] [place] [address] [place] [address] * (ABNORMAL) LYMPHOCYTE SUBSET PANEL 3 (T-CELLS) (10/08/2020 11:25 AM CDT) % CD3 (MATURE T CELLS) 84 57 - 85 % [facility] ABSOLUTE CD3+ CELLS 819(L) 840 - 3,060 cells/uL [facility] % CD4 (HELPER CELLS) 15(L) 30 - 61 % [facility] ABSOLUTE CD4+ CELLS 148(L) 490 - 1,740 cells/uL [facility] % CD8 (SUPPRESSOR T CELLS) 67(H) 12 - 42 % [facility] ABSOLUTE CD8+ CELLS 657 180 - 1,170 cells/uL [facility] HELPER/SUPPRESSO R RATIO 0.22(L) 0.86 - 5.00 [facility] ABSOLUTE LYMPHOCYTES 981 850 - 3,900 cells/uL [facility] Blood Blood / Unknown 10/08/2020 1 1:25 AM CDT 10/08/2020 11:27 AM CDT Henrique Hardin MD LAB - BLOOD DRAW Edited Oralia Rice [facility] [place] [address] [place] [address] [facility] [address] [place] [address] * (ABNORMAL) LIPID PANEL (10/08/2020 11:25 AM CDT) CHOLESTEROL, TOTAL 191 <200 mg/dL [facility] [place] HDL CHOLESTEROL 47 > OR = 40 mg/dL [facility] [place] TRIGLYCERIDES 75 <150 mg/dL [facility] [place] LDL-CHOLESTEROL 127(H) 99 mg/dL (calc) [facility] [place] Comment: Reference range: <100 Desirable range <100 mg/dL for primary prevention; ?? <70 mg/dL for patients with CHD or diabetic patients with > or = 2 CHD risk factors. LDL-C is now calculated using the Merrick-Perrin calculation, which is a validated novel method providing better accuracy than the Friedewald equation in the estimation of LDL-C. Merrick SS et al. PARESH. 2013;310(19): 2242-4244 (http://education.Flourish Prenatal/faq/TWT824) CHOL/HDLC RATIO 4.1 <5.0 (calc) [facility] [place] NON-HDL CHOLESTEROL 144(H) <130 mg/dL (calc) [facility] [place] Comment: For patients with diabetes plus 1 major ASCVD risk factor, treating to a non-HDL-C goal of <100 mg/dL (LDL-C of <70 mg/dL) is considered a therapeutic option. Blood Blood / Unknown 10/08/2020 1 1:25 AM CDT 10/08/2020 11:27 AM CDT Henrique Hardin MD LAB - BLOOD DRAW Final Res ult [employer] [place] [address] [place] [address], [employer] [facility] [address] [place] [address] * (ABNORMAL) HIV-1 RNA QUANT REAL TIME PCR, PLASMA (10/08/2020 11:25 AM CDT) [facility] Signature COPIES/ML 355,000(H ) NOT DETECTED copies/mL [facility] [place] LOG COPIES/ML 5.55(H) NOT DETECTED Log copies/mL [facility] [place] Comment: This test was performed using Real-Time Polymerase Chain Reaction. Reportable Range: 20 copies/mL to 10,000,000 copies/mL (1.30 log copies/mL to 7.00 log copies/mL). Blood Blood / Unknown 10/08/2020 1 1:25 AM CDT 10/08/2020 11:27 AM CDT Henrique Hardin MD LAB - BLOOD DRAW Final Res ult [employer] [place] [address] [address] [place], [place] [address], [employer] [place] [address] [facility] [place] [employer] [place] [address] * HEPATITIS B SURFACE ANTIBODY (HBSAB) QUAL (10/08/2020 11:25 AM CDT) HEPATITIS B SURFACE ANTIBODY QL NON-REACTI VE NON-REACT FARTUN [facility] [place] Blood Blood / Unknown 10/08/2020 1 1:25 AM CDT 10/08/2020 11:27 AM CDT Henrique Hardin MD LAB - BLOOD DRAW Edited Oralia chris - Dwayne Performing Organization Address [facility]/ZIP Co de Phone Number [employer] [place] [address] [place] [address], [facility] [place] [address] [place] [address] * HEPATITIS B SURFACE AG, EIA WITH REFLEX CONFIRM (10/08/2020 11:25 AM CDT) HEPATITIS B SURFACE ANTIGEN NON-REACTI VE NON-REACT FARTUN [facility] [place] Blood Blood / Unknown 10/08/2020 1 1:25 AM CDT 10/08/2020 11:27 AM CDT Henrique Hardin MD LAB - BLOOD DRAW Edited Oralia chris [facility] [employer] [place] [address] [place] [address], [employer] [place] [address] [facility] [place] [address] * (ABNORMAL) HEPATITIS A ANTIBODY (HAAB); TOTAL (10/08/2020 11:25 AM CDT) HEPATITIS A AB, TOTAL REACTIVE(A ) NON-REACT FARTUN [facility] [place] COMMENT [facility] [place] Blood Blood / Unknown 10/08/2020 1 1:25 AM CDT 10/08/2020 11:27 AM CDT Narrative [facility] [place] - 10/13/2020 7:27 PM CDT For additional information, please refer to http://GateGuru.Strikingly/faq/VTJ352 (This link is being provided for informational/ educational purposes only.) Henrique Hardin MD LAB - BLOOD DRAW Edited [facility] Organization Address [facility] Co de Phone Number [employer] [phone] [place] [address] [employer] [address] [address] * HEPATITIS C AB W/RFLX HCV RNA, QT, RT PCR (10/08/2020 11:25 AM CDT) Pathologist [facility] HEPATITIS C ANTIBODY NON-REACT FARTUN NON-REACT FARTUN [facility] [place] SIGNAL TO CUT-OFF 0.04 <1.00 [facility] [place] Comment: HCV antibody was non-reactive. There is no laboratory evidence of HCV infection. In most cases, no further action is required. However, if recent HCV exposure is suspected, a test for HCV RNA (test code 08397) is suggested. For additional information please refer to http://GateGuru.Strikingly/faq/TII98c4 (This link is being provided for informational/ educational purposes only.) Blood Blood / Unknown 10/08/2020 1 1:25 AM CDT 10/08/2020 11:27 AM CDT Henrique Hardin MD LAB - BLOOD DRAW Edited [facility] Performing Organization Address City/[facility]/ZIP Co de Phone Number [employer] [place] [address] [place] [address], [facility] [address] [address] * C TRACHOMATIS/N GONORRHOEAE RNA,TMA (10/08/2020 11:25 AM CDT) CHLAMYDIA TRACHOMATIS RNA, TMA NOT DETECTED NOT DETECTED [facility] [place] NEISSERIA GONORRHOEAE RNA, TMA NOT DETECTED NOT DETECTED [facility] [place] COMMENT [facility] [place] Urine Urine specimen / Unknown 10/08/2020 11:25 AM CDT 10/08/2020 11:27 AM CDT Narrative [facility] [place] - 10/13/2020 7:27 PM CDT The analytical performance characteristics of this assay, when used to test SurePath(TM) specimens have been determined by [employer]. The modifications have not been cleared or approved by the FDA. This assay has been validated pursuant to the CLIA regulations and is used for clinical purposes. For additional information, please refer to https://education.Strikingly/faq/LKK094 (This link is being provided for information/ educational purposes only.) Henrique Hardin MD LAB - NO BLOOD DRAW Edited Result - Final [place] [address], [employer] [address] [address] * (ABNORMAL) COMPRE METAB PANEL (10/08/2020 11:25 AM CDT) Pathologist [facility] GLUCOSE 94 65 - 99 mg/dL [facility] [place] Comment: ?Fasting reference interval UREA NITROGEN (BUN) 11 7 - 25 mg/dL [facility] [place] CREATININE (blood) 1.08 0.60 - 1.35 mg/dL [facility] [place] GFR ESTIMATED 94 > OR = 60 mL/min/1 .73m2 [facility] [place] EGFR 108 > OR = 60 mL/min/1 .73m2 [facility] [place] BUN/CREATININE RATIO NOT APPLICABLE 6 - 22 [facility] [place] SODIUM 142 135 - 146 mmol/L [facility] [place] POTASSIUM 4.4 3.5 - 5.3 mmol/L [facility] [place] CHLORIDE 102 98 - 110 mmol/L [facility] [place] CARBON DIOXIDE 28 20 - 32 mmol/L [facility] [place] CALCIUM 10.3 8.6 - 10.3 mg/dL [facility] [place] PROTEIN, TOTAL 8.6(H) 6.1 - 8.1 g/dL [facility] [place] ALBUMIN 4.7 3.6 - 5.1 g/dL [facility] [place] GLOBULIN 3.9(H) 1.9 - 3.7 g/dL (calc) [facility] [place] ALBUMIN/GLOBULI N RATIO 1.2 1.0 - 2.5 (calc) [facility] [place] BILIRUBIN, TOTAL 0.6 0.2 - 1.2 mg/dL [facility] [place] ALKALINE PHOSPHATASE 80 36 - 130 U/L [facility] [place] AST 26 10 - 40 U/L [facility] [place] ALT 24 9 - 46 U/L [facility] [place] Blood Blood / Unknown 10/08/2020 1 1:25 AM CDT 10/08/2020 11:27 AM CDT Henrique Hardin MD LAB - BLOOD DRAW Edited Re sult - Final [facility] [place] [address] [place] [address], [facility] [address] [place] [address] * (ABNORMAL) CBC WITH AUTO DIFF (10/08/2020 11:25 AM CDT) WHITE BLOOD CELL COUNT 2.5(L) 3.8 - 10.8 Thousand/ uL [facility] [place] RED BLOOD CELL COUNT 5.64 4.20 - 5.80 Million/u L [facility] [place] HEMOGLOBIN 15.3 13.2 - 17.1 g/dL [facility] [place] HEMATOCRIT 47.8 38.5 - 50.0 % [facility] [place] MCV 84.8 80.0 - 100.0 fL [facility] [place] MCH 27.1 27.0 - 33.0 pg [facility] [place] MCHC 32.0 32.0 - 36.0 g/dL [facility] [place] RDW 13.6 11.0 - 15.0 % [facility] [place] PLATELET COUNT 336 140 - 400 Thousand/ uL [facility] [place] MPV 10.7 7.5 - 12.5 fL [facility] [place] ABSOLUTE NEUTROPHILS 1,088(L) 1,500 - 7,800 cells/uL [facility] [place] ABSOLUTE LYMPHOCYTES 1,055 850 - 3,900 cells/uL [facility] [place] ABSOLUTE MONOCYTES 328 200 - 950 cells/uL [facility] [place] ABSOLUTE EOSINOPHILS 10(L) 15 - 500 cells/uL [facility] [place] ABSOLUTE BASOPHILS 20 0 - 200 cells/uL [facility] [place] NEUTROPHILS PCT 43.5 % [facility] [place] LYMPHOCYTES 42.2 % [facility] [place] MONOCYTES 13.1 % [facility] [place] EOSINOPHILS 0.4 % [facility] [place] BASOPHILS 0.8 % [facility] [place] Blood Blood / Unknown 10/08/2020 1 1:25 AM CDT 10/08/2020 11:27 AM CDT Henrique Hardin MD LAB - BLOOD DRAW Edited Re aries - Final [facility] [place] [address] [place] [address], [employer] [place] [address] [facility] ALFREDOCombat[facility] ([employer] [place] [address] documented in this encounter Visit Diagnoses Diagnosis Asymptomatic HIV infection (HCC-CMS)- Primary Asymptomatic human immunodeficiency virus (HIV) infection status 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HCC-CMS) Other causes of myelitis LAD (lymphadenopathy) of left cervical region Enlargement of lymph nodes Exposure to STD Contact with or exposure to other communicable diseases Right inguinal hernia Inguinal hernia without mention of obstruction or gangrene, unilateral or unspecified, (not specified as recurrent) Anal warts Condyloma acuminatum documented in this encounter Additional Health Concerns Assessment Noted Time PHQ-9 Depression Total Score: 20 021 10:00 AM PDT documented as of this encounter Care Teams Telephone Station Repairer Relationship Specialty Start Date End Date Henrique Hardin MD [address] [place] [address] PCP - General Infectious Diseases 08/29/19 08/18/21 documented as of this encounter
--- OUTSIDE RECORDS SUMMARY | 2024-08-10 03:28 | XMS_ITS | Referral Summary ---
Author Organization [facility] Address [address] [place] [address] Care Team Providers Care Single Needle Tufting Machine Operator Name Role Phone Geoffcristino Mady Primary Care Provider Un available Source Comments [facility],non-owned Affiliates and Associated Physician Practices is amultiple site organization consisting of ambulatory clinics and hospital sitesin [place], [place], [place] and [place]. This disclosure is being madepursuant to the Care Everywhere program and may not contain all information available regarding this patient. Last updated 18.[facility] Encounters Date Type Department Care Team Description 06/19/2024 Travel 06/19/2024 2:26 AM [facility] - 06/19/2024 11:37 AM [facility] Emergency [facility] EM[facility] [address] [place] [address] Dorothy Miranda MD Heller, Ross, MD Suicidal ideation Discharge Disposition: Home or Self Care from Last 3 Months Allergies No known active allergies Medications * [...] mouth 2 times daily Active HYDROcodone-acetaminop hen ([place]) 5-325 MG tablet Take 1 (one) tablet [...] Biktarvy daily - outpatient follow-up with ID Immunizations Name Administration Dates Next Due DTaP [...] Recorded Patient Health Questionnaire-2 Score 6 02/03/2024 [facility] - [...] place to sleep or slept in a custodial (including now)? Yes 02/16/2024 Sex and Gender Information Value Date Recorded Sex Assigned at Not on file Gender Identity Not on file Sexual Orientation Not on file Last Filed Vital Signs Vital Sign Reading Time Taken Comments Blood Pressure 109/71 06/19/2024 2:38 AM METALLURGICAL INSPECTOR Pulse 59 06/19/2024 2:38 AM METALLURGICAL INSPECTOR Temperature 36.6 ??C (97.8 ??F) 06/19/2024 2:38 AM CS T Respiratory Rate 20 06/19/2024 2:38 AM METALLURGICAL INSPECTOR Oxygen Saturation 99% 06/19/2024 2:38 AM METALLURGICAL INSPECTOR Inhaled Oxygen Concentration - - Weight 81.6 kg (180 lb) 04/26/2024 3:31 AM CDT Height 182.9 cm (6') 04/26/2024 3:31 AM CDT Body Mass Index 24.41 04/26/2024 3:31 AM CDT Functional Status Functional Status Response Date of [...] person have difficulty concentrating/remembering/making decisions? No 02/16/2024 Plan of Treatment Not on file Medical Devices Implanted Type Area B Operator Device Identifier Shelf Expiration Date Model / Serial / Lot Mesh Srg 6x3in Lg Pore Knit Mfl Smth Rnd Implanted:Qty: 1 on 04/13/2023 by Natividad Blair MD at [facility] Mesh Right: [employer] 08/19/2027 [id number] / / [id number] Description:TH Procedures Procedure Name Priority Date/Time Associated Diagnosis Comments URINE DRUG SCREEN IMMUNOASSAY STAT 06/19/2024 8:17 AM METALLURGICAL INSPECTOR ALCOHOL ETHYL BLOOD STAT 06/19/2024 8 :06 AM METALLURGICAL INSPECTOR COMPREHENSIVE METABOLIC PANEL STAT 06/19/2024 8:06 AM METALLURGICAL INSPECTOR CBC W AUTO DIFFERENTIAL STAT 06/19/2024 8:06 AM METALLURGICAL INSPECTOR HEPATITIS C ANTIBODY STAT 05/04/2024 10:36 AM CDT from Last 3 Months or Most Recently Relevant to Health Maintenance Results * (ABNORMAL) URINE DRUG SCREEN IMMUNOASSAY (06/19/2024 8:17 AM [facility]) Pathologist [facility] Amphetamines Screen Urine Positive(A) Negative : < 1000 ng/mL 06/19/2024 8:51 AM [facility] Comment: Positive urine amphetamine screening results should be confirmed by another generally accepted non-immunological method such as gas chromatography or mass spectrometry. ? Barbiturates Screen Urine Negative Negative : < 200 ng/mL 06/19/2024 8:51 AM [facility] Benzodiazepine Screen Urine Negative Negative : < 200 ng/mL 06/19/2024 8:51 AM [facility] Opiates Urine Negative Negative : < 300 ng/mL 06/19/2024 8:51 AM [facility] Cocaine Metabolites Urine Negative Negative : < 300 ng/mL 06/19/2024 8:51 AM [facility] Phencyclidine Screen Urine Negative Negative : < 25 ng/ml 06/19/2024 8:51 AM [facility] Cannabinoids Screen Urine Negative Negative : <50 ng/mL 06/19/2024 8:51 AM [facility] Methadone Screen Urine Negative Negative : < 300 ng/mL 06/19/2024 8:51 AM [facility] Fentanyl Screen Urine Negative Negative : <1.5 ng/mL 06/19/2024 8:51 AM [facility] Urine URINE / Unknown Collection / Unknown 06/19/2024 8:17 AM [facility] 06/19/2024 8:24 AM [facility] - 06/19/2024 8:51 AM [facility] The Urine Toxicology Screening Panel does not screen for Propoxyphene, Meprobamate, Carisoprodol, Trazodone, fuax-pzr-wleerah medications and/or volatiles (Acetone, Isopropanol, Methanol or Ethylene Glycol). Ethanol, Salicylate, Acetaminophen, Tricyclic Antidepressants and several therapeutic drugs may be individually assayed in serum or plasma specimen. Toxicology testing by the [facility] is an aid to medical diagnosis and treatment of patients. No documented chain of custody was maintained. Results are intended to be used for clinical purposes only. ? Dorothy Miranda MD LAB - URINE CHEMISTR Y ORDERABLES Performing Organization Address City/State/[facility] Co de Phone Number [facility] [address] [place] [phone], [facility] [phone] * (ABNORMAL) CBC W AUTO DIFFERENTIAL (06/19/2024 8:06 AM [facility]) WBC 2.9(L) 4.0 - 10.7 x10E9/L 06/19/2024 8:24 AM [facility] RBC Count 5.19 4.30 - 5.80 x10E12/L 06/19/2024 8:24 AM [facility] Hemoglobin 12.9(L) 13.3 - 17.5 g/dL 06/19/2024 8:24 AM [facility] Hematocrit 40.6 38.7 - 51.1 % 06/19/2024 8:24 AM [facility] MCV 78.2(L) 80.0 - 98.0 fL 06/19/2024 8:24 AM [facility] MCH 24.9(L) 26.7 - 33.6 pg 06/19/2024 8:24 AM [facility] MCHC 31.8 31.7 - 36.3 g/dL 06/19/2024 8:24 AM [facility] RDW-CV 15.6(H) 11.3 - 14.8 % 06/19/2024 8:24 AM [facility] Platelet Count 311 150 - 420 x10E9/L 06/19/2024 8:24 AM [facility] MPV 8.9 7.8 - 11.4 fL 06/19/2024 8:24 AM [facility] Neutrophil % 50.0 41.0 - 74.0 % 06/19/2024 8:24 AM [facility] Lymphocyte % 38.6 17.0 - 47.0 % 06/19/2024 8:24 AM [facility] Monocyte % 3.2 3.0 - 11.0 % 06/19/2024 8:24 AM [facility] Eosinophil % 7.4(H) 0.0 - 7.0 % 06/19/2024 8:24 AM [facility] Basophil % 0.4 0.0 - 1.6 % 06/19/2024 8:24 AM [facility] Immature Granulocytes % 0.4 0.0 - 1.0 % 06/19/2024 8:24 AM [facility] Neutrophil Absolute 1.43(L) 1.60 - 7.50 x10E9/L 06/19/2024 8:24 AM [facility] Lymphocyte Absolute 1.10 1.00 - 4.40 x10E9/L 06/19/2024 8:24 AM [facility] Monocyte Absolute 0.09(L) 0.15 - 1.00 x10E9/L 06/19/2024 8:24 AM [facility] Eosinophil Absolute 0.21 0.00 - 0.60 x10E9/L 06/19/2024 8:24 AM [facility] Basophil Absolute 0.01 0.00 - 0.13 x10E9/L 06/19/2024 8:24 AM [facility] Blood BLOOD SPECIMEN / Unknown Venipuncture / Unknown 06/19/2024 8:06 AM METALLURGICAL INSPECTOR 06/19/2024 8:22 AM [facility] Dorothy C Bitter MD LAB - HEMATOLOGY ORD ERABLES [facility] [address] [place] [phone], [facility] [phone] * (ABNORMAL) COMPREHENSIVE METABOLIC PANEL (06/19/2024 8:06 AM [facility]) BUN 13 7 - 26 mg/dL 06/19/2024 8:49 AM [facility] Creatinine 0.95 0.71 - 1.16 mg/dL 06/19/2024 8:49 AM [facility] Sodium 140 136 - 145 mmol/L 06/19/2024 8:49 AM [facility] Potassium 4.0 3.5 - 4.5 mmol/L 06/19/2024 8:49 AM [facility] Chloride 111(H) 98 - 107 mmol/L 06/19/2024 8:49 AM [facility] CO2 23 22 - 29 mmol/L 06/19/2024 8:49 AM [facility] Glucose 72 70 - 99 mg/dL 06/19/2024 8:49 AM [facility] Calcium 8.8 8.4 - 10.2 mg/dL 06/19/2024 8:49 AM [facility] Protein Total 7.1 6.0 - 8.3 g/dL 06/19/2024 8:49 AM [facility] Albumin 3.3(L) 3.4 - 5.0 g/dL 06/19/2024 8:49 AM [facility] Bilirubin Total 0.4 0.2 - 1.2 mg/dL 06/19/2024 8:49 AM [facility] Alkaline Phosphatase 68 40 - 150 U/L 06/19/2024 8:49 AM [facility] ALT 22 5 - 55 U/L 06/19/2024 8:49 AM [facility] AST 21 5 - 34 U/L 06/19/2024 8:49 AM [facility] Anion Gap 6 6 - 16 06/19/2024 8:49 AM [facility] BUN/Creatinine Ratio 14 7 - 23 06/19/2024 8:49 AM [facility] Osmolality Calculated 289 275 - 295 mOsm/kg 06/19/2024 8:49 AM [facility] Albumin/Globulin Ratio 0.9(L) 1.1 - 2.3 06/19/2024 8:49 AM [facility] eGFR by CKD-EPI >90 >=90 mL/min/1.7 3 m2 06/19/2024 8:49 AM [facility] Blood BLOOD SPECIMEN / Unknown Venipuncture / Unknown 06/19/2024 8:06 AM METALLURGICAL INSPECTOR 06/19/2024 8:21 AM METALLURGICAL INSPECTOR Dorothy Miranda MD LAB - CHEMISTRY AMANDA MELENDREZ Performing Organization Address [facility]/ZIP Co de Phone Number [address] [address], [employer] [phone] * ALCOHOL ETHYL BLOOD (06/19/2024 8:06 AM METALLURGICAL INSPECTOR) Ethanol (mg/dL) <10 <10 mg/dL 8:49 AM [facility] Ethanol Calculated (g/dL) <0.010 <=0.010 g/dL 06/19/2024 8:49 AM [facility] Blood BLOOD SPECIMEN / Unknown Venipuncture / Unknown 06/19/2024 8:06 AM METALLURGICAL INSPECTOR 06/19/2024 8:21 AM METALLURGICAL INSPECTOR Narrative [facility] - 06/19/2024 8:49 AM METALLURGICAL INSPECTOR Ethanol Interp <10: None Detected. Depression of ALUMINUM MOLDING MACHINE OPERATOR: >100 mg/dl Potentially Critical: >250 mg/dl Potentially [...] Miranda MD LAB - CHEMISTRY AMANDA MELENDREZ Performing Organization Address City/[facility]/ZIP Co de Phone Number [address] [address], [employer] [phone] * HEPATITIS C ANTIBODY (05/04/2024 10:36 AM CDT) Pathologist [facility] HCV Antibody Screen Non Reactive Non Reactive 05/04/2024 11:12 AM CDT [facility] Blood BLOOD SPECIMEN / Unknown Venipuncture / Unknown 05/04/2024 10:36 AM CDT 05/04/2024 10:36 AM CDT Narrative [facility] - 05/04/2024 11:12 AM CDT Non Reactive - Antibodies to Hepatitis C virus (HCV) were not detected, result does not exclude early acute HCV infection. Monica Christina MD LAB - CHEMISTRY AMANDA MELENDREZ [facility] [address] [place] [address] from Last 3 Months or Most Recently [...] 11:31 PM 06/20/2023 3:15 PM Care Teams Single Needle Tufting Machine Operator Relationship Specialty Start Date End Date Mady Sullivan PCP - General 02/03/24
--- OUTSIDE RECORDS SUMMARY | 2024-08-10 03:28 | XMS_ITS | Encounter Summary ---
Author Organization [facility] Address [address] [place] [address] Care Team Providers Care Drafting Detailer Name Role Phone Henrique Hardin MD Primary Care Provider [phone] Encounter Details Date Type Department Care Team (Late st Contact Info) Description 10/08/2020 Interim [facility] [address] [place] [id number] Lawanda, Quirino [address] [place] [address] Social History Tobacco Use Types Packs/Day Years [...] Progress Notes * Quirino Webber - 10/08/2020 10:51 AM CDT ..New Patient Orientation was completed [...] solved. ?? Education given about services at [facility], including explanation of eligibility for enrollment in [...] patient will be receiving a survey from [facility]. ?? Follow up needed: Day Time documented in this encounter Plan of Treatment Not on file documented as of this encounter Visit Diagnoses Not on filedocumented in this encounter Additional Health Concerns Assessment Noted Time PHQ-9 Depression Total Score: 021 10:00 AM PDT documented as of this encounter Care Teams Drafting Detailer Relationship Specialty Start Date End Date Henrique Hardin MD [address] [place] [address] PCP - General Infectious Diseases 08/29/19 08/18/21 documented as of this encounter
--- OUTSIDE RECORDS SUMMARY | 2024-08-10 03:28 | XMS_ITS | Patient Health Summary ---
Author Organization [facility] Address [address] [place] [address] Care Team Providers Care Rag Shredder Name Role Phone Mady Sullivan Primary Care Provider Un available Note from [facility],non-owned Affiliates and Associated Physician Practices is amultiple site organization consisting of ambulatory clinics and hospital sitesin [place], [place], [place] and [place]. This disclosure is being madepursuant to the Care Everywhere program and may not contain all information available regarding this patient. Last updated 18.[facility] Allergies No known active allergies Medications * Be aware that medications may not be up to date on this document. Alwaysverify current medications with the patient. * idkzngpokyj-sgxtvjnjxgntr-koqstqwty (Biktarvy) 50-200-25 MG(Started 08/08/2023) Take 1 (one) tablet by mouth once daily Reasons: HIV Disease * hydrOXYzine HCl (Atarax) 50 MG tablet(Started 02/14/2024) Take 1 (one) tablet by mouth every 6 hours as needed (Anxiety) Reasons: Feeling Anxious 1 refill by 02/13/2025 * doxepin (SINEquan) 25 MG capsule(Started 02/14/2024) Take 1 (one) capsule by mouth at bedtime Reasons: sleep * prazosin (Minipress) 2 MG capsule(Started 02/21/2024) TAKE ONE CAPSULE BY MOUTH EVERY NIGHT AT BEDTIME FOR 30 DAYS * traZODone (Desyrel) 50 MG tablet(Started 02/21/2024) TAKE ONE TABLET BY MOUTH EVERY NIGHT AT BEDTIME NEEDED FOR INSOMNIA * DULoxetine (Cymbalta) 60 MG capsule(Started 02/21/2024) TAKE ONE CAPSULE BY MOUTH ONCE DAILY WITH 30 MG CAPSULE FOR A TOTAL OF 90 MG DAILY * DULoxetine (Cymbalta) 30 MG capsule(Started 02/21/2024) TAKE ONE CAPSULE BY MOUTH ONCE DAILY. TAKE WITH 60MG CAPSULES FOR A DAILY TOTAL OF 90MG * ARIPiprazole (Abilify) 10 MG tablet(Started 02/21/2024) TAKE ONE TABLET BY MOUTH ONCE DAILY * buPROPion XL 24hr (Wellbutrin-XL) 150 MG tablet(Started 04/19/2024) Take 1 (one) tablet by mouth once daily * busPIRone (Buspar) 10 MG tablet(Started 02/08/2024) Take 1 (one) tablet by mouth 3 times daily * gabapentin (Neurontin) 100 MG capsule Take 1 (one) capsule by mouth 2 times daily * HYDROcodone-acetaminophen ([place]) 5-325 MG tablet(Started 04/09/2024) Take 1 (one) tablet by mouth every 6 hours as needed * hydrOXYzine HCl (Atarax) 50 MG tablet(Started 02/08/2024) Take 1 (one) tablet by mouth every 12 hours as needed Active Problems Problem Noted Date Diagnosed Date [...] obstruction or gangrene 04/04/2023 HIV infection 07/31/2019 Immunizations * DTaP VACCINE IM (6wk-6yrs)(Given 10/15/1998, 04/05/1995, 05/18/1994, 02/23/1994, 1993) * HEP A PEDS 2 DOSE(Given 10/05/2005) * HEP B VACCINE(Given 09/22/1998, 04/10/1994, 01/05/1994) * HEP B VACCINE, ADULT 3 DOSE(Given 10/24/2023, 08/06/2019) * HIB-PRP-T 4 DOSE(Given 04/05/1995, 05/18/1994, 02/23/1994, 1993) * Human Papilloma Virus Ninevalent Vaccine(Given 11/02/2023, 06/27/2023, 03/21/2023) * INFLUENZA VACCINE, QUADR. (FLUZONE; FLULAVAL; FLUARIX; AFLURIA QUADRIVALENT; 6MO+), 0.5 ML (IIV4)(Given 06/17/2023) * MENINGOCOCCAL CONJUGATE (MCV4P)(Given 10/05/2005) * MENINGOCOCCAL MCV4O(Given 11/02/2023) * MMR VACCINE(Given 10/15/1998, 10/19/1994) * PNEUMOCOCCAL PPV VACCINE(Given 08/06/2019) * POLIO IPV(Given 02/05/2003) * POLIO OPV(Given 05/18/1994, 02/23/1994, 1993) * POLIO,HISTORIC VACCINE(Given 11/18/1996) * Pneumococcal Pcv13 Conj(Given 08/06/2019) * TDAP, HISTORIC VACCINE(Given 06/27/2023) * VARICELLA(Given 11/18/1996) Social History Tobacco Use Types Packs/Day Years [...] Recorded Patient Health Questionnaire-2 Score 6 02/03/2024 [facility] - Occupational Stress [...] place to sleep or slept in a mcfp (including now)? Yes 02/16/2024 Sex and Gender Information Value Date Recorded Sex Assigned at Not on file Gender Identity Not on file Sexual Orientation Not on file Last Filed Vital Signs Vital Sign Reading Time Taken Comments Blood Pressure 109/71 06/19/2024 2:38 AM [facility]EDIT [facility]ARD [facility]IATE Pulse 59 06/19/2024 2:38 AM [employer]EDIT CARD [employer]OCIATE Temperature 36.6 ??C (97.8 ??F) 06/19/2024 2:38 AM CS T Respiratory Rate 20 06/19/2024 2:38 AM CREDIT CARD ASSOCIATE Oxygen Saturation 99% 06/19/2024 2:38 AM CREDIT CARD ASSOCIATE Inhaled Oxygen Concentration - - Weight 81.6 kg (180 lb) 04/26/2024 3:31 AM CDT Height 182.9 cm (6') 04/26/2024 3:31 AM CDT Body Mass Index 24.41 04/26/2024 3:31 AM CDT Medical Devices Implanted Type Area Equipment Processer Storage Device Identifier Shelf Expiration Date Model / Serial / Lot Mesh Srg 6x3in Lg Pore Knit Mfl Smth Rnd Implanted:Qty: 1 on 04/13/2023 by Natividad Blair MD at [facility] Mesh Right: Inguinal [employer] 08/19/2027 [id number] / / [id number] Description:TH Procedures * URINE DRUG SCREEN IMMUNOASSAY(Performed 06/19/2024) * ALCOHOL ETHYL BLOOD(Performed 06/19/2024) * COMPREHENSIVE METABOLIC PANEL(Performed 06/19/2024) * CBC W AUTO DIFFERENTIAL(Performed 06/19/2024) * BASIC METABOLIC PANEL (CALCIUM TOTAL)(Performed 05/04/2024) * HEPATITIS B SURFACE ANTIBODY(Performed 05/04/2024) * HEPATITIS B SURFACE ANTIGEN W RFLX CONFIRMATION(Performed 05/04/2024) * HEPATITIS C ANTIBODY(Performed 05/04/2024) * SARS-COV-2 (COVID-19) RAPID(Performed 05/04/2024) * SARS-COV-2 (COVID-19) FLU A/B RSV PCR RAPID(Performed 05/02/2024) * XR CHEST 2VW(Performed 05/02/2024) Performed for Agitation * URINE DRUG SCREEN IMMUNOASSAY(Performed 05/02/2024) * XR ANKLE LEFT 3VW OR MORE(Performed 05/02/2024) Performed for Acute left ankle pain * CK BLOOD(Performed 05/02/2024) * ACETAMINOPHEN LEVEL(Performed 05/02/2024) * ALCOHOL ETHYL BLOOD(Performed 05/02/2024) * SALICYLATE LEVEL BLOOD(Performed 05/02/2024) * COMPREHENSIVE METABOLIC PANEL(Performed 05/02/2024) * CBC W AUTO DIFFERENTIAL(Performed 05/02/2024) * CARDIAC EKG ORDER(Performed 04/28/2024) * DIFFERENTIAL MANUAL(Performed 04/26/2024) * CK BLOOD(Performed 04/26/2024) * SALICYLATE LEVEL BLOOD(Performed 04/26/2024) * ACETAMINOPHEN LEVEL(Performed 04/26/2024) * COMPREHENSIVE METABOLIC PANEL(Performed 04/26/2024) * CBC W AUTO DIFFERENTIAL(Performed 04/26/2024) * XR ANKLE LEFT 3VW OR MORE(Performed 04/26/2024) Performed for Acute left ankle pain * CARDIAC EKG ORDER(Performed 04/24/2024) * EKG 12-LEAD(Performed 04/22/2024) Performed for Bipolar I disorder (HCC) * DIFFERENTIAL MANUAL(Performed 04/22/2024) * URINE DRUG SCREEN IMMUNOASSAY(Performed 04/22/2024) * ALCOHOL ETHYL BLOOD(Performed 04/22/2024) * MAGNESIUM BLOOD(Performed 04/22/2024) * COMPREHENSIVE METABOLIC PANEL(Performed 04/22/2024) * CBC W AUTO DIFFERENTIAL(Performed 04/22/2024) * CK BLOOD(Performed 03/28/2024) * COMPREHENSIVE METABOLIC PANEL(Performed 03/28/2024) * CBC W AUTO DIFFERENTIAL(Performed 03/28/2024) * RPR TITER(Performed 02/21/2024) * RPR(Performed 02/21/2024) * SYPHILIS ANTIBODY CASCADING REFLEX(Performed 02/21/2024) * XR PANOREX(Performed 02/20/2024) Performed for Closed fracture of tooth, initial encounter * CARDIAC EKG ORDER(Performed 02/18/2024) * CK BLOOD(Performed 02/18/2024) * URINALYSIS REFLEX TO MICROSCOPIC NO CULTURE(Performed 02/18/2024) * PT EVAL AND TREAT(Performed 02/17/2024) * OT EVAL AND TREAT(Performed 02/17/2024) * CK BLOOD(Performed 02/17/2024) * CK BLOOD(Performed 02/16/2024) * COMPREHENSIVE METABOLIC PANEL(Performed 02/16/2024) * CBC W AUTO DIFFERENTIAL(Performed 02/16/2024) * EKG 12-LEAD(Performed 02/15/2024) Performed for Palpitations * URINE DRUG SCREEN IMMUNOASSAY(Performed 02/15/2024) * ALCOHOL ETHYL BLOOD(Performed 02/15/2024) * BASIC METABOLIC PANEL (CALCIUM TOTAL)(Performed 02/15/2024) * CBC W AUTO DIFFERENTIAL(Performed 02/15/2024) * SLIDE SCAN HEMATOLOGY(Performed 02/12/2024) * TSH REFLEX FREE T4(Performed 02/12/2024) * LIPID PROFILE(Performed 02/12/2024) * HEMOGLOBIN A1C(Performed 02/12/2024) * COMPREHENSIVE METABOLIC PANEL(Performed 02/12/2024) * CBC W AUTO DIFFERENTIAL(Performed 02/12/2024) * URINE DRUG SCREEN IMMUNOASSAY(Performed 02/11/2024) * CARDIAC RHYTHM STRIP ORDER(Performed 02/06/2024) * URINE DRUG SCREEN IMMUNOASSAY(Performed 02/03/2024) * EKG 12-LEAD(Performed 02/03/2024) Performed for Bipolar I disorder (HCC), [place] * ALCOHOL ETHYL BLOOD(Performed 02/03/2024) * BASIC METABOLIC PANEL (CALCIUM TOTAL)(Performed 02/03/2024) * CBC W AUTO DIFFERENTIAL(Performed 02/03/2024) * CARDIAC EKG ORDER(Performed 12/24/2023) * EKG 12-LEAD(Performed 12/23/2023) Performed for Intentional overdose, initial encounter (HCC) * ALCOHOL ETHYL BLOOD(Performed 12/23/2023) * ACETAMINOPHEN LEVEL(Performed 12/23/2023) * SALICYLATE LEVEL BLOOD(Performed 12/23/2023) * COMPREHENSIVE METABOLIC PANEL(Performed 12/23/2023) * CBC W AUTO DIFFERENTIAL(Performed 12/23/2023) * RPR TITER(Performed 08/03/2023) * RPR(Performed 08/03/2023) * SYPHILIS ANTIBODY CASCADING REFLEX(Performed 08/03/2023) * HEMOGLOBIN A1C(Performed 08/03/2023) * CBC W AUTO DIFFERENTIAL(Performed 08/03/2023) * URINALYSIS REFLEX TO MICROSCOPIC NO CULTURE(Performed 08/01/2023) * URINE DRUG SCREEN IMMUNOASSAY(Performed 08/01/2023) * URINALYSIS REFLEX TO MICROSCOPIC NO CULTURE(Performed 06/13/2023) * URINE DRUG SCREEN IMMUNOASSAY(Performed 06/13/2023) * RPR TITER(Performed 06/13/2023) * RPR(Performed 06/13/2023) * TSH REFLEX FREE T4(Performed 06/13/2023) * SYPHILIS ANTIBODY CASCADING REFLEX(Performed 06/13/2023) * LIPID PROFILE(Performed 06/13/2023) * HEMOGLOBIN A1C(Performed 06/13/2023) * COMPREHENSIVE METABOLIC PANEL(Performed 06/13/2023) * CBC W AUTO DIFFERENTIAL(Performed 06/13/2023) * CARDIAC RHYTHM STRIP ORDER(Performed 04/17/2023) * ENDOTRACHEAL TUBE NOTE(Performed 04/13/2023) * SD RPR 1ST INGUN HRNA AGE 5 YRS/> REDUCIBLE(Performed 04/13/2023) Performed for Inguinal hernia without obstruction or gangrene, recurrence not specified, unspecified laterality * CD4 (ABSOLUTE T4)(Performed 01/12/2023) Performed for HIV infection, asymptomatic (HCC) * CD4 (ABSOLUTE T4)(Performed 01/04/2023) Performed for HIV infection, asymptomatic (HCC) * CT ABDOMEN PELVIS WO CONTRAST(Performed 01/04/2023) Performed for Inguinal hernia without obstruction or gangrene, recurrence not specified, unspecified laterality Results * (ABNORMAL) URINE DRUG SCREEN IMMUNOASSAY (06/19/2024 8:17 AM [facility]) Only the most recent of8 resultswithin the time period is included. Pathologist [facility] Amphetamines Screen Urine Positive(A) Negative : < 1000 ng/mL 06/19/2024 8:51 AM [facility] Comment: Positive urine amphetamine screening results should be confirmed by another generally accepted non-immunological method such as gas chromatography or mass spectrometry. ? Barbiturates Screen Urine Negative Negative : < 200 ng/mL 06/19/2024 8:51 AM [facility] Benzodiazepine Screen Urine Negative Negative : < 200 ng/mL 06/19/2024 8:51 AM [facility] Opiates Urine Negative Negative : < 300 ng/mL 06/19/2024 8:51 AM [facility] Cocaine Metabolites Urine Negative Negative : < 300 ng/mL 06/19/2024 8:51 AM [facility] Phencyclidine Screen Urine Negative Negative : < 25 ng/ml 06/19/2024 8:51 AM [facility] Cannabinoids Screen Urine Negative Negative : <50 ng/mL 06/19/2024 8:51 AM [facility] Methadone Screen Urine Negative Negative : < 300 ng/mL 06/19/2024 8:51 AM [facility] Fentanyl Screen Urine Negative Negative : <1.5 ng/mL 06/19/2024 8:51 AM [facility] Urine URINE / Unknown Collection / Unknown 06/19/2024 8:17 AM [facility] 06/19/2024 8:24 AM [facility] - 06/19/2024 8:51 AM [facility] The Urine Toxicology Screening Panel does not screen for Propoxyphene, Meprobamate, Carisoprodol, Trazodone, rqfw-rzi-zzmcnjo medications and/or volatiles (Acetone, Isopropanol, Methanol or Ethylene Glycol). Ethanol, Salicylate, Acetaminophen, Tricyclic Antidepressants and several therapeutic drugs may be individually assayed in serum or plasma specimen. Toxicology testing by the [facility] is an aid to medical diagnosis and treatment of patients. No documented chain of custody was maintained. Results are intended to be used for clinical purposes only. ? Dorothy Miranda MD LAB - URINE CHEMISTR Y ORDERABLES Performing Organization Address [facility] Co de Phone Number [address] [address], [facility] [phone] * (ABNORMAL) CBC W AUTO DIFFERENTIAL (06/19/2024 8:06 AM [facility]) Only the most recent of12 resultswithin the time period is included. WBC 2.9(L) 4.0 - 10.7 x10E9/L 06/19/2024 8:24 AM [facility] RBC Count 5.19 4.30 - 5.80 x10E12/L 06/19/2024 8:24 AM [facility] Hemoglobin 12.9(L) 13.3 - 17.5 g/dL 06/19/2024 8:24 AM [facility] Hematocrit 40.6 38.7 - 51.1 % 06/19/2024 8:24 AM [facility] MCV 78.2(L) 80.0 - 98.0 fL 06/19/2024 8:24 AM [facility] MCH 24.9(L) 26.7 - 33.6 pg 06/19/2024 8:24 AM [facility] MCHC 31.8 31.7 - 36.3 g/dL 06/19/2024 8:24 AM [facility] RDW-CV 15.6(H) 11.3 - 14.8 % 06/19/2024 8:24 AM [facility] Platelet Count 311 150 - 420 x10E9/L 06/19/2024 8:24 AM [facility] MPV 8.9 7.8 - 11.4 fL 06/19/2024 8:24 AM [facility] Neutrophil % 50.0 41.0 - 74.0 % 06/19/2024 8:24 AM [facility] Lymphocyte % 38.6 17.0 - 47.0 % 06/19/2024 8:24 AM [facility] Monocyte % 3.2 3.0 - 11.0 % 06/19/2024 8:24 AM [facility] Eosinophil % 7.4(H) 0.0 - 7.0 % 06/19/2024 8:24 AM [facility] Basophil % 0.4 0.0 - 1.6 % 06/19/2024 8:24 AM [facility] Immature Granulocytes % 0.4 0.0 - 1.0 % 06/19/2024 8:24 AM [facility] Neutrophil Absolute 1.43(L) 1.60 - 7.50 x10E9/L 06/19/2024 8:24 AM [facility] Lymphocyte Absolute 1.10 1.00 - 4.40 x10E9/L 06/19/2024 8:24 AM [facility] Monocyte Absolute 0.09(L) 0.15 - 1.00 x10E9/L 06/19/2024 8:24 AM [facility] Eosinophil Absolute 0.21 0.00 - 0.60 x10E9/L 06/19/2024 8:24 AM [facility] Basophil Absolute 0.01 0.00 - 0.13 x10E9/L 06/19/2024 8:24 AM [facility] Blood BLOOD SPECIMEN / Unknown Venipuncture / Unknown 06/19/2024 8:06 AM [facility] 06/19/2024 8:22 AM [facility] Dorothy Miranda MD LAB - HEMATOLOGY ORD ERABLES [address] [address], [facility] [phone] * (ABNORMAL) COMPREHENSIVE METABOLIC PANEL (06/19/2024 8:06 AM [facility]) Only the most recent of9 resultswithin the time period is included. BUN 13 7 - 26 mg/dL 06/19/2024 8:49 AM [facility] Creatinine 0.95 0.71 - 1.16 mg/dL 06/19/2024 8:49 AM [facility] Sodium 140 136 - 145 mmol/L 06/19/2024 8:49 AM [facility] Potassium 4.0 3.5 - 4.5 mmol/L 06/19/2024 8:49 AM [facility] Chloride 111(H) 98 - 107 mmol/L 06/19/2024 8:49 AM [facility] CO2 23 22 - 29 mmol/L 06/19/2024 8:49 AM [facility] Glucose 72 70 - 99 mg/dL 06/19/2024 8:49 AM [facility] Calcium 8.8 8.4 - 10.2 mg/dL 06/19/2024 8:49 AM [facility] Protein Total 7.1 6.0 - 8.3 g/dL 06/19/2024 8:49 AM [facility] Albumin 3.3(L) 3.4 - 5.0 g/dL 06/19/2024 8:49 AM [facility] Bilirubin Total 0.4 0.2 - 1.2 mg/dL 06/19/2024 8:49 AM [facility] Alkaline Phosphatase 68 40 - 150 U/L 06/19/2024 8:49 AM [facility] ALT 22 5 - 55 U/L 06/19/2024 8:49 AM [facility] AST 21 5 - 34 U/L 06/19/2024 8:49 AM [facility] Anion Gap 6 6 - 16 06/19/2024 8:49 AM [facility] BUN/Creatinine Ratio 14 7 - 23 06/19/2024 8:49 AM [facility] Osmolality Calculated 289 275 - 295 mOsm/kg 06/19/2024 8:49 AM [facility] Albumin/Globulin Ratio 0.9(L) 1.1 - 2.3 06/19/2024 8:49 AM [facility] eGFR by CKD-EPI >90 >=90 mL/min/1.7 3 m2 06/19/2024 8:49 AM [facility] Blood BLOOD SPECIMEN / Unknown Venipuncture / Unknown 06/19/2024 8:06 AM [facility] 06/19/2024 8:21 AM [facility] Dorothy Miranda MD LAB - CHEMISTRY ORDE [facility] Organization Address City/State/ZIP Co de Phone Number [facility] [address] [place] [phone], [facility] [phone] * ALCOHOL ETHYL BLOOD (06/19/2024 8:06 AM [facility]) Only the most recent of6 resultswithin the time period is included. Ethanol (mg/dL) <10 <10 mg/dL 8:49 AM [facility] Ethanol Calculated (g/dL) <0.010 <=0.010 g/dL 06/19/2024 8:49 AM [facility] Blood BLOOD SPECIMEN / Unknown Venipuncture / Unknown 06/19/2024 8:06 AM [facility] [facility] 06/19/2024 8:21 AM [facility]OCIATE Narrative [facility] - 06/19/2024 8:49 AM [facility] Ethanol Interp <10: None Detected. Depression of DELICATESSEN MANAGER: >100 mg/dl Potentially Critical: >250 mg/dl Potentially [...] Miranda MD LAB - CHEMISTRY AMANDA MELENDREZ [id number] [place] [address], [facility] [phone] * (ABNORMAL) BASIC METABOLIC PANEL (CALCIUM TOTAL) (05/04/2024 10:40 AM CDT) Only the most recent of3 resultswithin the time period is included. [facility] Glucose 100(H) 70 - 99 mg/dL 05/04/2024 10:52 AM CDT [facility] Sodium 134(L) 136 - 145 mmol/L 05/04/2024 10:52 AM CDT [facility] Potassium 3.5 3.5 - 5.1 mmol/L 05/04/2024 10:52 AM CDT [facility] Chloride 106 98 - 107 mmol/L 05/04/2024 10:52 AM CDT [facility] CO2 22 22 - 29 mmol/L 05/04/2024 10:52 AM CDT [facility] Calcium 8.9 8.4 - 10.4 mg/dL 05/04/2024 10:52 AM CDT [facility] Anion Gap 6 6 - 16 mmol/L 05/04/2024 10:52 AM CDT [facility] BUN 6 5.3 - 18.7 mg/dL 05/04/2024 10:52 AM CDT [facility] Creatinine 0.89 0.72 - 1.25 mg/dL 05/04/2024 10:52 AM CDT [facility] eGFR by CKD-EPI >90 >=90 mL/min/1.7 3 m2 05/04/2024 10:52 AM CDT [facility] Blood BLOOD SPECIMEN / Unknown Venipuncture / Unknown 05/04/2024 10:40 AM CDT 05/04/2024 10:41 AM CDT Monica Christina MD LAB - CHEMISTRY AMANDA MELENDREZ [facility] [address] [place] [address] * SARS-COV-2 (COVID-19) RAPID (05/04/2024 10:36 AM CDT) [facility] COVID-19 PCR Not detected Not detected 05/04/20 11:09 AM CDT [facility] Microbiology SPECIMEN FROM NASOPHARYNGEAL STRUCTURE / Unknown Collection / Unknown 05/04/2024 10:36 AM CDT 05/04/2024 10:36 AM CDT [facility] - 05/04/2024 11:09 AM CDT The [employer] Xpert Xpress SARS-COV-2 has been authorized by the Food and Drug Administration (FDA) under an Emergency Use Authorization (EUA). This test has been validated in accordance with the FDA's guidance document Policy for Diagnostic Testing in Laboratories Certified to perform High Complexity Testing under CLIA prior to Emergency Use Authorization for Coronavirus Disease-2019 during the Public Health Emergency issued on September 20, 2019. FDA independent review of this validation is pending. This test is only authorized for the duration of the time the declaration that circumstances exist justifying the authorization of emergency use of in vitro diagnostic tests for detection of SARS-COV-2 virus and/or diagnosis of COVID-19 infection under 564(b) (1) of the Act. 21 U.S.C. 360bbb-3 (b) (1), unless the authorization is terminated or revoked sooner. Fact Sheets for this EUA assay are available upon request. Jaswant Vu DO LAB - MICROBIOL OGY ORDERABLES Performing Organization Address City/[facility] Co de Phone Number [facility] [address] [place] [address] * HEPATITIS B SURFACE ANTIBODY (05/04/2024 10:36 AM CDT) [facility] HBsAb Non Reactive Non Reactive 05/04/2024 11:13 AM CDT [facility] Blood BLOOD SPECIMEN / Unknown Venipuncture / Unknown 05/04/2024 10:36 AM CDT 05/04/2024 10:36 AM CDT Monica Christina MD LAB - CHEMISTRY AMANDA MELENDREZ Performing Organization Address City/[facility]/ZIP Co de Phone Number [facility] [address] [place], [place] [id number] * HEPATITIS B SURFACE ANTIGEN W RFLX CONFIRMATION (05/04/2024 10:36 AM CDT) HBsAg Non Reactive Non Reactive 05/04/2024 11:13 AM CDT [facility] Blood BLOOD SPECIMEN / Unknown Venipuncture / Unknown 05/04/2024 10:36 AM CDT 05/04/2024 10:36 AM CDT Monica Christina MD LAB - CHEMISTRY AMANDA MELENDREZ Performing Organization Address [facility] Co de Phone Number [facility] [address] [place] [id number] * HEPATITIS C ANTIBODY (05/04/2024 10:36 AM CDT) Pathologist [facility] HCV Antibody Screen Non Reactive Non Reactive 05/04/2024 11:12 AM CDT [facility] Blood BLOOD SPECIMEN / Unknown Venipuncture / Unknown 05/04/2024 10:36 AM CDT 05/04/2024 10:36 AM CDT Narrative [facility] - 05/04/2024 11:12 AM CDT Non Reactive - Antibodies to Hepatitis C virus (HCV) were not detected, result does not exclude early acute HCV infection. Monica Christina MD LAB - CHEMISTRY AMANDA MELENDREZ Performing Organization Address City/[facility]/ZIP Co de Phone Number [facility] [address] [place] [address] * SARS-COV-2 (COVID-19) FLU A/B RSV PCR RAPID (05/02/2024 9:46 PM CDT) Pathologist [facility] COVID-19 PCR Not detected Not detected 05/02/20 10:47 PM CDT [facility] Influenza A PCR Not detected Not detected 05/02/2024 10:47 PM CDT [facility] Influenza B PCR Not detected Not detected 05/02/2024 10:47 PM CDT [facility] RSV PCR Not detected Not detected 05/02/2024 10:47 PM CDT [facility] Microbiology SPECIMEN FROM NASOPHARYNGEAL STRUCTURE / Unknown Collection / Unknown 05/02/2024 9:46 PM CDT 05/02/2024 9:46 PM CDT Narrative [facility] - 05/02/2024 10:47 PM CDT This nucleic acid amplification assay has been authorized by the Food and Drug administration (FDA) under an Emergency??Use Authorization (EUA).?? This test is only authorized for the duration of time the declaration that circumstances exist justifying the authorization of emergency use of in vitro diagnostic tests for detection of SARS-CoV-2 virus and/or diagnosis of COVID-19 infection under section 564(b)(1) of the Act, 21 U.S.C 360bbb-3 (b)(1), unless the authorization is terminated or revoked sooner. Fact Sheets for this EUA assay are available upon request. Monica Christina MD LAB - MICROBIOLOGY O RDERABLES [facility] [address] [place] [address] * XR CHEST 2VW (05/02/2024 9:44 PM CDT) Anatomical Region Laterality Modality Chest Radiographic Shakila ging 05/03/2024 7:17 AM CDT Impressions 05/03/2024 7:18 AM CDT IMPRESSION: No active disease. > Interpreting Provider: Abdiel Fay MD on 05/03/2024 7:18 AM Narrative 05/03/2024 7:18 AM CDT Procedure: XR CHEST 2VW ??Exam Date: ??05/02/2024 9:44 PM ?? Location: ??[facility] Indication: R45.1: Restlessness and agitation Findings: There are no old studies available for comparison. The lungs are clear of infiltrate. There are no pleural effusions or pneumothorax. The heart size and pulmonary vascularity are normal. Procedure Note Abdiel Fay MD - 05/03/2024 Procedure: XR CHEST 2VW Exam Date: 05/02/2024 9:44 PM Location: [facility] Indication: R45.1: Restlessness and agitation Findings: There are no old studies available for comparison. The lungsare clear of infiltrate. There are no pleural effusions or pneumothorax. The heart size and pulmonary vascularity are normal. IMPRESSION: No active disease. > Interpreting Provider: Abdiel Fay MD on 05/03/2024 7:18 AM Monica Christina MD DIAGNOSTIC IMAGING O RDERABLES * XR Ankle Left 3Vw or More (05/02/2024 8:22 PM CDT) Only the most recent of2 resultswithin the time period is included. Anatomical Region Laterality Modality Lower Extremity Radiographic Shakila ging 05/02/2024 8:25 PM CDT Impressions 05/02/2024 8:26 PM CDT IMPRESSION: Normal left ankle radiographs. > Interpreting Provider: Divya Arboleda MD on 05/02/2024 8:26 PM Narrative 05/02/2024 8:26 PM CDT PROCEDURE: ??XR ANKLE LEFT 3VW OR MORE DATE/TIME OF EXAM: ??05/02/2024 8:22 PM CLINICAL INFORMATION: None relevant/not provided if blank. Indication: M25.572: Pain in left ankle and joints of left foot Additional History: COMPARISON: 04/26/2024 FINDINGS: There is no fracture. Alignment is normal. Joint spaces are normal. There is no appreciable soft tissue abnormality. Procedure Note Divya Arboleda MD - 05/02/2024 PROCEDURE: XR ANKLE LEFT 3VW OR MORE DATE/TIME OF EXAM: 05/02/2024 8:22 PM CLINICAL INFORMATION: None relevant/not provided if blank. Indication: M25.572: Pain in left ankle and joints of left foot Additional History: COMPARISON: 04/26/2024 FINDINGS: There is no fracture. Alignment is normal. Joint spaces are normal. There is no appreciable soft tissue abnormality. IMPRESSION: Normal left ankle radiographs. > Interpreting Provider: Divya Arboleda MD on 05/02/2024 8:26 PM Monica Christina MD DIAGNOSTIC IMAGING O RDERABLES * (ABNORMAL) CK BLOOD (05/02/2024 7:29 PM CDT) Only the most recent of6 resultswithin the time period is included. CK 263(H) 30 - 200 U/L 05/02/2024 7:47 PM CDT [facility] Blood BLOOD SPECIMEN / Unknown Venipuncture / Unknown 05/02/2024 7:29 PM CDT 05/02/2024 7:29 PM CDT Monica Christina MD LAB - CHEMISTRY AMANDA MELENDREZ Performing Organization Address City/[facility] Co de Phone Number [facility] [address] [place], [place] [id number] * (ABNORMAL) SALICYLATE LEVEL BLOOD (05/02/2024 7:29 PM CDT) Only the most recent of3 resultswithin the time period is included. Salicylate <5.0(L) 15.0 - 30.0 mg/dL 05/02/2024 7:47 PM CDT [facility] Blood BLOOD SPECIMEN / Unknown Venipuncture / Unknown 05/02/2024 7:29 PM CDT 05/02/2024 7:29 PM CDT Monica Christina MD LAB - CHEMISTRY AMANDA MELENDREZ Performing Organization Address City/[facility]/ZIP Co de Phone Number [facility] [address] [place] [phone] * (ABNORMAL) ACETAMINOPHEN LEVEL (05/02/2024 7:29 PM CDT) Only the most recent of3 resultswithin the time period is included. Acetaminophen <3.0(L) 10.0 - 30.0 ug/mL 05/02/2024 7:47 PM CDT [facility] Blood BLOOD SPECIMEN / Unknown Venipuncture / Unknown 05/02/2024 7:29 PM CDT 05/02/2024 7:29 PM CDT Narrative [facility] - 05/02/2024 7:47 PM CDT [facility] ACETAMINOPHEN COMMENT Critical values: 4 Hours Post Ingestion: Critical value ?? > 200 ??g/mL 12 Hours Post Ingestion: Critical value ??> ??50 ??g/mL For acute ingestion, please refer to Acetaminophen nomogram to determine the ??risk of toxicity ??based on time since ingestion and acetaminophen level (see link provided). Note the nomogram disclaimer. WARNING: Assessing the potential toxicity of an acetaminophen level on a standard risk nomogram must take into consideration many factors including any uncertainty of the time since ingestion or the possibility of other medications that may alter the peak level. Contact the [facility] at or reserved for healthcare professionals to assist you in evaluating potentially toxic acetaminophen levels. Monica Christina MD LAB - CHEMISTRY ORDE PARVIN [facility] [address] [place] [address] * CARDIAC EKG ORDER (04/28/2024 2:38 PM CDT) Only the most recent of4 resultswithin the time period is included. Narrative 04/28/2024 2:38 PM CDT Ordered by an unspecified provider. Scanned Document CARDIAC SERVICES ORD ERABLES * (ABNORMAL) DIFFERENTIAL MANUAL (04/26/2024 4:07 AM CDT) Only the most recent of2 resultswithin the time period is included. Neutrophil % 25(L) 41 - 74 % 04/26/2024 5:26 AM CDT [facility] Lymphocyte % 59(H) 17 - 47 % 04/26/2024 5:26 AM CDT [facility] Monocyte % 6 3 - 11 % 04/26/2024 5:26 AM CDT [facility] Eosinophil % 10(H) 0 - 7 % 04/26/2024 5:26 AM [facility] Neutrophil Absolute 0.63(L) 1.60 - 7.50 x10E9/L 04/26/2024 5:26 AM [facility] Lymphocyte Absolute 1.48 1.00 - 4.40 x10E9/L 04/26/2024 5:26 AM [facility] Monocyte Absolute 0.15 0.15 - 1.00 x10E9/L 04/26/2024 5:26 AM [facility] Eosinophil Absolute 0.25 0.00 - 0.60 x10E9/L 04/26/2024 5:26 AM [facility] RBC Morphology REVIEWED 04/26/2024 5:26 AM [facility] Lavell Cells MODERATE(A) (none) 04/26/2024 5:26 AM [facility] Smudge Cells PRESENT(A) (none) 04/26/2024 5:26 AM [facility] Large Platelets PRESENT(A) (none) 04/26/2024 5:26 AM [facility] Blood BLOOD SPECIMEN / Unknown Venipuncture / Unknown 04/26/2024 4:07 AM CDT 04/26/2024 4:09 AM CDT Silvia Durham MD LAB - HEMATOLOGY ORD ERABLES [facility] [address] [place] [address], [facility] [phone] * EKG 12-LEAD (04/22/2024 1:46 PM CDT) Only the most recent of4 resultswithin the time period is included. Ventricular Rate 43 BPM [facility] Atrial Rate 43 BPM [facility] P-R Interval 172 ms [facility] QRS Duration ms 104 ms [facility] Q-T Interval ms 480 ms [facility] QTC Calculation (Bezet) 405 ms [facility] MUSE Calculated P [place] 65 degrees SL MUSE Calculated R [place] 84 degrees SL MUSE Calculated T [place] 73 degrees SL MUSE Interpretation EKG MARKED SINUS BRADYCARDIA EARLY REPOLARIZATION OTHERWISE NORMAL ECG VENT. RATE HAS DECREASED 50 bpm Confirmed by JANNETTE RUIZ, SOPHIE ([id number]) on 04/23/2024 2:59:11 PM [facility] 04/22/2024 1:46 PM CDT 04/23/2024 2:59 PM CDT Rinku Mathews MD ECG ORDERABLES Performing Organization Address [facility] Co de Phone Number [facility] * MAGNESIUM BLOOD (04/22/2024 10:07 AM CDT) Pathologist [facility] Magnesium 2.2 1.6 - 2.6 mg/dL 04/22/2024 10:42 AM CDT [facility] Blood BLOOD SPECIMEN / Unknown Venipuncture / Unknown 04/22/2024 10:07 AM CDT 04/22/2024 10:11 AM CDT Rinku Mathews MD LAB - CHEMISTRY AMANDA MELENDREZ Performing Organization Address [facility] de Phone Number [address] [address], [place] [phone] * (ABNORMAL) RPR TITER (02/21/2024 4:36 AM CDT) Only the most recent of3 resultswithin the time period is included. [facility] RPR Titer 1:32(A) (none) 02/21/2024 12:18 PM CDT [facility] Blood BLOOD SPECIMEN / Unknown Venipuncture / Unknown 02/21/2024 4:36 AM CDT 02/21/2024 4:48 AM CDT Geeta Dejesus MD LAB - CHEMISTRY AMANDA MELENDREZ Performing Organization Address [facility] Co de Phone Number [address] [address], [place] [phone] * (ABNORMAL) SYPHILIS ANTIBODY CASCADING REFLEX (02/21/2024 4:36 AM CDT) Only the most recent of3 resultswithin the time period is included. Pathologist [facility] Treponema pallidum Antibody REACTIVE( A) Non-react makeda 02/21/2024 5:43 AM CDT [facility] Comment:Additional testing r equired for evaluation of syphilis. An RPR has been reflexively ordered and is in progress. Blood BLOOD SPECIMEN / Unknown Venipuncture / Unknown 02/21/2024 4:36 AM CDT 02/21/2024 4:48 AM CDT Geeta Dejesus MD LAB - SEROLOGY ORDER ALOK Performing Organization Address [facility]/ZIP Co de Phone Number [address] [address], [facility] [phone] * (ABNORMAL) RPR (02/21/2024 4:36 AM CDT) Only the most recent of3 resultswithin the time period is included. RPR REACTIVE( A) Non Reactive 02/21/2024 12:18 PM CDT [facility] Comment: Treponemal antibodies and non-treponemal antibodies detected. Consistent with current syphilis infection. Clinical evaluation should be performed to identify signs, symptoms, or past history of infection. Blood BLOOD SPECIMEN / Unknown Venipuncture / Unknown 02/21/2024 4:36 AM CDT 02/21/2024 4:48 AM CDT eGeta Dejesus MD LAB - CHEMISTRY ORDE PARVIN Performing Organization Address [facility] Co de Phone Number [address] [address], [facility] [phone] * XR Panorex (02/20/2024 2:03 PM CDT) Anatomical Region Laterality Modality Head Radiographic Shakila ging 02/21/2024 9:33 AM CDT Impressions 02/21/2024 4:35 PM CDT IMPRESSION: No evidence of periapical abscess. Several carious teeth with few fractured/eroded teeth. Dental consultation is recommended. > Dictated by Lloyd Camacho DO (radiology physician). IFrank MD have personally reviewed and interpreted this examination/study. > Interpreting Provider: Frank Kay MD on 02/21/2024 4:35 PM Narrative 02/21/2024 4:35 PM CDT PROCEDURE: ??XR PANOREX, DATE/TIME OF EXAM: ??02/20/2024 2:03 PM, LOCATION ??[facility] INDICATION: S02.5XXA: Closed fracture of tooth, initial encounter ADDITIONAL CLINICAL INFORMATION: Ordering Provider Reason For Exam: ??chipped tooth extent of break COMPARISON: None. FINDINGS: Multiple dental restorations are identified, and numerous teeth are absent. No acute mandibular fracture is identified. Several carious teeth with few fractured/eroded teeth are seen including the left first mandibular molar, the right first mandibular molar, and the left maxillary molar and first molar. No periapical abscess is present. Procedure Note Frank Kay MD - 02/21/2024 PROCEDURE: XR PANOREX, DATE/TIME OF EXAM: 02/20/2024 2:03 PM[facility]: S02.5XXA: Closed fracture of tooth, initial encounter ADDITIONAL CLINICAL INFORMATION: Ordering Provider Reason For Exam: chipped tooth extent of break COMPARISON: None. FINDINGS: Multiple dental restorations are identified, and numerous teeth areabsent. No acute mandibular fracture is identified. Several carious teeth withfew fractured/eroded teeth are seen including the left first mandibularmolar, the right first mandibular molar, and the left maxillary molar and first molar. No periapical abscess is present. IMPRESSION: No evidence of periapical abscess. Several carious teeth with few fractured/eroded teeth. Dentalconsultation is recommended. > Dictated by Lloyd Camacho DO (radiology physician). I, Frank Kay MD have personally reviewed and interpreted this examination/study. > Interpreting Provider: Frank Kay MD on 02/21/2024 4:35 PM Geeta Dejesus MD DIAGNOSTIC IMAGING O RDERABLES * (ABNORMAL) URINALYSIS REFLEX TO MICROSCOPIC NO CULTURE (02/18/2024 12:30 AM CDT) Only the most recent of3 resultswithin the time period is included. Color UA Straw Straw, Yellow 02/18/2024 12:49 AM [facility] Clarity UA Clear Clear 02/18/2024 12:49 AM [facility] Specific Sanders UA 1.011 1.005 - 1.030 02/18/2024 12:49 AM [facility] pH UA 6.0 5.0 - 8.0 pH 02/18/2024 12:49 AM [facility] Protein UA Negative Negative 02/18/2024 12:49 AM [facility] Glucose UA Negative Negative 02/18/2024 12:49 AM [facility] Ketone UA Negative Negative 02/18/2024 12:49 AM [facility] Bilirubin UA Negative Negative 02/18/2024 12:49 AM [facility] Blood UA Negative Negative 02/18/2024 12:49 AM [facility] Nitrite UA Negative Negative 02/18/2024 12:49 AM [facility] Leukocyte Esterase Negative Negative 02/18/2024 12:49 AM [facility] Urobilinogen UA Negative Negative mg/dL 02/18/2024 12:49 AM [facility] RBC UA 0-2 None Seen, 0-2, 3-5 /HPF 02/18/2024 12:49 AM [facility] WBC UA 0-5 None Seen, 0-5 /HPF 02/18/2024 12:49 AM [facility] Bacteria UA Trace(A) None /HPF 02/18/2024 12:49 AM [facility] Squamous Epithelial Cells UA 0-2 None Seen, 0-2, 3-5 /HPF 02/18/2024 12:49 AM [facility] Hyaline Casts UA 0-2 None Seen, 0-2 /LPF 02/18/2024 12:49 AM [facility] Urine URINE SPECIMEN OBTAINED BY CLEAN CATCH PROCEDURE / Unknown Collection / Unknown 02/18/2024 12:30 AM CDT 02/18/2024 12:37 AM [facility] - 02/18/2024 12:49 AM [facility] Priya Dickerson MD LAB - URINALYS IS ORDERABLES Performing Organization Address City/[facility]/ZIP Co de Phone Number [facility] [address] [place] [address], [facility] [phone] * TSH REFLEX FREE T4 (02/12/2024 7:38 AM CDT) Only the most recent of2 resultswithin the time period is included. TSH 1.071 0.350 - 4.940 uIU/mL 02/12/2024 10:46 AM CDT [facility] Blood BLOOD SPECIMEN / Unknown Venipuncture / Unknown 02/12/2024 7:38 AM CDT 02/12/2024 7:55 AM CDT Bri Wright Frandy HUMAN RESOURCES DEPARTMENT SUPERVISOR-DELICATESSEN MANAGER LAB - CHEMISTRY O RDERABLES Performing Organization Address City/[facility]/ZIP Co de Phone Number [facility] [address] [place] [address] * HEMOGLOBIN A1C (02/12/2024 7:38 AM CDT) Only the most recent of3 resultswithin the time period is included. Hemoglobin A1c 5.6 <5.7 % 02/12/2024 10:11 AM CDT [facility] Estimated Average Glucose 114 mg/dL 02/12/2024 10:11 AM CDT [facility] Blood BLOOD SPECIMEN / Unknown Venipuncture / Unknown 02/12/2024 7:38 AM CDT 02/12/2024 7:50 AM CDT Narrative [facility] - 02/12/2024 10:11 AM CDT HbA1c Interpretation: Normal: < 5.7% Pre-diabetes: 5.7-6.4% Diabetes: Equal to or greater than 6.5% Test results diagnostic of diabetes should be repeated for confirmation. Treatment target values recommended by ADA and other clinical organizations should be used to evaluate metabolic control in patients. This test should not replace glucose testing for patients with Type 1 diabetes, pediatric patients, or women. ??Falsely low HbA1c results may be observed in patients with clinical conditions that shorten erythrocyte life span or decrease mean erythrocyte age such as the presence of unstable hemoglobin variants, elevated hemoglobin F level or other causes of hemolytic anemia. ??HbA1c may not accurately reflect glycemic control when clinical conditions that affect erythrocyte survival are present. ??Severe Iron deficiency anemia may yield falsely high results. ??Hemoglobin A1c assay should not be used to diagnose or monitor diabetes in patients with malignancy, recent blood transfusion, chronic kidney or liver disease. ?? This method may yield falsely low results when hemoglobin (HbF) exceeds 5% in the specimen. The Granda Alinity assay for the measurement of HbA1c is a National Glycohemoglobin Standardization Program (NGSP) certified method. Bri Wise [facility] LAB - CHEMISTRY O RDERABLES Performing Organization Address City/[facility]/ZIP Co de Phone Number [facility] [address] [place] [address] * SLIDE SCAN HEMATOLOGY (02/12/2024 7:38 AM CDT) [facility] RBC Morphology NORMAL 02/12/2024 11:03 AM [facility] Blood BLOOD SPECIMEN / Unknown Venipuncture / Unknown 02/12/2024 7:38 AM CDT 02/12/2024 7:49 AM CDT Bri Wise [facility] LAB - HEMATOLOGY ORDERABLES Performing Organization Address [facility] Co de Phone Number [facility] [address] [place] [address] * LIPID PROFILE (02/12/2024 7:38 AM CDT) Only the most recent of2 resultswithin the time period is included. Pathologist [facility] Cholesterol 173 <200 mg/dL 02/12/2024 10:29 AM CDT [facility] Triglycerides 123 <150 mg/dL 02/12/2024 10:29 AM CDT [facility] HDL Cholesterol 50 >40 mg/dL 4 10:29 AM [facility] LDL Calculated 98 <130 mg/dL 02/12/2024 10:29 AM CDT [facility] VLDL Calculated 25 <=30 mg/dL 4 10:29 AM [facility] Chol HDL Ratio 3.5 <4.5 02/12/2024 10:29 AM CDT [facility] LDL/HDL Ratio 2.0 <5.0 02/12/2024 10:29 AM CDT [facility] Blood BLOOD SPECIMEN / Unknown Venipuncture / Unknown 02/12/2024 7:38 AM CDT 02/12/2024 7:55 AM CDT Bri Wise APRN-DELICATESSEN MANAGER LAB - CHEMISTRY O RDERABLES [facility] [address] [facility] [place] [address] * CARDIAC RHYTHM STRIP ORDER (02/06/2024 1:30 PM CDT) Only the most recent of2 resultswithin the time period is included. Narrative 02/06/2024 1:30 PM CDT Ordered by an unspecified provider. Scanned Document CARDIAC SERVICES ORD ERABLES * ETT LINE PERFORMABLE (04/13/2023 9:10 AM CDT) Narrative Natividad Collier APRN-CRNA - 04/13/2023 9:10 AM CDT Natividad Collier APRN-CRNA ? 04/13/2023 ??9:10 AM Endotracheal Tube Placement: ? Patient Location: OR. Intubation Event Date/Time: ??04/13/2023 8:59 AM Procedure: intubation (39170). Procedure Section: ?? Sedation: IV sedation. Indications for Airway Management: ??airway protection Induction: standard IV Patient Position: ??sniffing Mask Ventilation: easy. Blade Type: Christopher Blade Size: 2 Laryngoscopy View: grade 1 (full cords) Intubation Adjuncts: cricoid pressure and stylet Tube: endotracheal tube Placement: oral Tube type: cuff - inflated Tube Size (MM): 8 Depth of Insertion (CM): 21 Measured From: lips Cuff Inflated With: air Number of Attempts: 1. Placement Verified By: direct visualization, CO2 monitor, chest auscultation and bilateral breath sounds CXR Findings: ETT in proper place. Tube secured with: ??adhesive tape. Procedure Start Time: 04/13/2023 8:59 AM. Staff Section ? Anesthesia Provider: Natividad Collier, HUMAN RESOURCES DEPARTMENT SUPERVISOR-CULINARY INTERN, Performed the procedure Additional Comments: DL times 1, OETT placed atraumatically . Ezra Aguirre MD GENERAL ANESTHESIA ORDERABLES * (ABNORMAL) CD4 (ABSOLUTE T4) (01/12/2023 1:40 PM CDT) Only the most recent of2 resultswithin the time period is included. Absolute CD 4 [place] 176(L) 359 - 1,519 /uL [facility] INSURANCE BILL % CD 4 Positive Lymphocyte 8.8(L) 30.8 - 58.5 % [facility] INSURANCE BILL WBC 3.9 3.4 - 10.8 x10E3/uL [facility] INSURANCE BILL RBC 5.92(H) 4.14 - 5.80 x10E6/uL [facility] INSURANCE BILL Hemoglobin 14.0 13.0 - 17.7 g/dL [facility] INSURANCE BILL Hematocrit 45.5 37.5 - 51.0 % [facility] INSURANCE BILL MCV 77(L) 79 - 97 fL [facility] INSURANCE BILL MCH 23.6(L) 26.6 - 33.0 pg [facility] INSURANCE BILL MCHC 30.8(L) 31.5 - 35.7 g/dL [facility] INSURANCE BILL RDW 19.6(H) 11.6 - 15.4 % [facility] INSURANCE BILL Platelet Count 325 150 - 450 x10E3/uL [facility] INSURANCE BILL Granulocytes % 28 Not Estab. % [facility] INSURANCE BILL Lymphocytes % 52 Not Estab. % [facility] INSURANCE BILL Monocytes % 8 Not Estab. % [facility] INSURANCE BILL Eosinophils % 10 Not Estab. % [facility] INSURANCE BILL Basophils % 1 Not Estab. % [facility] INSURANCE BILL Immature Cells NOT AVAILABLE [facility] BILL Comment:Result cannot be obt ained for this observation. Granulocytes Absolute 1.1(L) 1.4 - 7.0 x10E3/uL [facility] INSURANCE BILL Lymphocytes Absolute 2.0 0.7 - 3.1 x10E3/uL [facility] INSURANCE BILL Monocytes Absolute 0.3 0.1 - 0.9 x10E3/uL [facility] INSURANCE BILL Eosinophils Absolute 0.4 0.0 - 0.4 x10E3/uL [facility] INSURANCE BILL Basophils Absolute 0.0 0.0 - 0.2 x10E3/uL [facility] INSURANCE BILL Immature Granulocytes 1 Not Estab. % [facility] INSURANCE BILL Immature Granulocytes Absolute 0.0 0.0 - 0.1 x10E3/uL [facility] INSURANCE BILL nRBC NOT AVAILABLE [facility] INSURANCE BILL Comment:Result cannot be obt ained for this observation. Comment Hematology NOT AVAILABLE [facility] INSURANCE BILL Comment:Result cannot be obt ained for this observation. Blood BLOOD SPECIMEN / Unknown 01/12/2023 1:40 PM CDT 01/12/2023 Narrative Resulting Agency Comment Lab Testing performed at: [facility] [place] [address] [facility] ??formerly [facility] [id number] Natividad Ponce MD LAB - HEMATOLOGY ORD ERABLES [facility] INSURANCE BILL [address] [place] [address] * CT ABDOMEN PELVIS WO CONTRAST (01/04/2023 4:11 PM CDT) Anatomical Region Laterality Modality Abdomen, Pelvis Computed Tomogra phy 01/05/2023 6:08 AM CDT Impressions 01/05/2023 11:25 AM CDT IMPRESSION: 1.Large right inguinal hernia containing cecum and distal ileal loops with a 5 cm fascial defect with enlargement of the right hemiscrotum and mass effect on the testes. No focal obstruction or secondary signs of strangulation. > Dictated by Jeromy Garcia MD, PhD (radiology physician). I, Geovanny Nguyễn have personally reviewed and interpreted this examination/study. > Interpreting Provider: Geovanny Nguyễn on 01/05/2023 11:25 AM Narrative 01/05/2023 11:25 AM CDT PROCEDURE: ??CT ABDOMEN PELVIS WO CONTRAST, DATE/TIME OF EXAM: ??01/04/2023 4:16 PM, LOCATION ??[facility] INDICATION: K40.90: Inguinal hernia without obstruction or gangrene, recurrence not specified, unspecified laterality ADDITIONAL CLINICAL INFORMATION: Ordering Provider Reason For Exam: ??inguinal hernia contents COMPARISON: None. TECHNIQUE: CT of the abdomen and pelvis was performed without contrast according to standard protocol. FINDINGS: Evaluation of visceral and vascular structures is degraded due to lack of intravenous contrast administration. Lower thorax: Lung bases: No pulmonary parenchymal or airway process is present. Heart and Pericardium: The cardiac chambers are normal in size. No pericardial fluid or thickening is present. Thoracic Vasculature: No vascular abnormality is present. Abdomen/pelvis: Liver: Within the limitations of a noncontrast examination, the liver is unremarkable. Gallbladder and Bile Ducts: Normal. Spleen: Normal. Pancreas: Normal. Adrenals: Normal. Kidneys: Subcentimeter hypodensity too small to characterize in the left kidney but likely a cyst. Kidneys otherwise within normal limits. Renal Collecting System and Ureters: Normal. Bladder: Normal. Gastrointestinal/Soft tissues: The stomach is unremarkable. There is a large right inguinal hernia containing the cecum and distal ileal loops through a 5 cm fascial defect (series 3, image 113). There is marked enlargement of the right hemiscrotum and mass effect on the testes. Otherwise, the small bowel, large bowel, and appendix are otherwise unremarkable. No focal obstruction or secondary signs of strangulation. Mesentery/Peritoneum/Retroperitoneum: Normal. Reproductive Organs: The prostate is normal. Marked distention of the right hemiscrotum and mass effect on the testes. Abdominal Vasculature: No vascular abnormality is present. Bones: There is no acute fracture or suspicious bony lesions. Bone island in the right ilium. Procedure Note Geovanny Nguyễn MD - 01/05/2023 PROCEDURE: CT ABDOMEN PELVIS WO CONTRAST, DATE/TIME OF EXAM: 01/04/2023 4:16 PM, LOCATION [facility] INDICATION: K40.90: Inguinal hernia without obstruction or gangrene, recurrence not specified, unspecified laterality ADDITIONAL CLINICAL INFORMATION: Ordering Provider Reason For Exam: inguinal hernia contents COMPARISON: None. TECHNIQUE: CT of the abdomen and pelvis was performed without contrast according to standard protocol. FINDINGS: Evaluation of visceral and vascular structures is degraded due to lackof intravenous contrast administration. Lower thorax: Lung bases: No pulmonary parenchymal or airway process is present. Heart and Pericardium: The cardiac chambers are normal in size. No pericardial fluid orthickening is present. Thoracic Vasculature: No vascular abnormality is present. Abdomen/pelvis: Liver: Within the limitations of a noncontrast examination, the liver is unremarkable. Gallbladder and Bile Ducts: Normal. Spleen: Normal. Pancreas: Normal. Adrenals: Normal. Kidneys: Subcentimeter hypodensity too small to characterize in the left kidneybut likely a cyst. Kidneys otherwise within normal limits. Renal Collecting System and Ureters: Normal. Bladder: Normal. Gastrointestinal/Soft tissues: The stomach is unremarkable. There is a large right inguinal hernia containing the cecum and distal ileal loops through a 5 cm fascialdefect (series 3, image 113). There is marked enlargement of the righthemiscrotum and mass effect on the testes. Otherwise, the small bowel, large bowel,and appendix are otherwise unremarkable. No focal obstruction or secondary signs of strangulation. Mesentery/Peritoneum/Retroperitoneum: Normal. Reproductive Organs: The prostate is normal. Marked distention of the right hemiscrotum andmass effect on the testes. Abdominal Vasculature: No vascular abnormality is present. Bones: There is no acute fracture or suspicious bony lesions. Bone island inthe right ilium. IMPRESSION: 1.Large right inguinal hernia containing cecum and distal ileal loopswith a 5 cm fascial defect with enlargement of the right hemiscrotum and mass effect on the testes. No focal obstruction or secondary signs of strangulation. > Dictated by Jeromy Garcia MD, PhD (radiology physician). I, Geovanny Nguyễn have personally reviewed and interpreted this examination/study. > Interpreting Provider: Geovanny Nguyễn on 01/05/2023 11:25 AM Natividad Ponce MD CT ORDERABLES Care Teams Rag Shredder Relationship Specialty Start Date End Date Mady Sullivan PCP - General 02/03/24
--- OUTSIDE RECORDS SUMMARY | 2024-08-10 03:29 | XMS_ITS | Encounter Summary ---
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 Pt states he would shoot himself. Pt states thing have not been going well and he's too tired to take anymore. Pt is extremely anxiour Encounter Details Date Type Department Care Team (Late st Contact Info) Description 04/22/2024 8:31 AM CDT - 04/22/2024 2:41 PM CDT Emergency [facility] [address] [place] [address] [phone] Rinku Mathews MD [address] [place] [address] [place] [id number] Suicidal ideation (Primary Dx); Bipolar I disorder (HCC) Discharge Disposition: Home or Self Care Social History Tobacco Use Types Packs/Day Years Used Date Smoking Tobacco: Former Passive Smoke Exposure: Never Smokeless Tobacco: Never Comments:Vape several times a day Alcohol Use Standard Drinks/Week Comments Not Currently 0 (1 standard drink = 0.6 oz pur e alcohol) socially AUDIT-C Answer Date Recorded Q1: How often do you have a drink containing alcohol? Never 02/16/2024 Q2: How many drinks containi ng alcohol do you have on a typical day when you are drinking? Patient does not drink Q3: How often do you have si x or more drinks on one occasion? Never 02/16/2024 Overall Financial Resource Strain (CARDIA) Answe r Date Recorded How hard is it for you to pa y for the very basics like food, housing, medical care, and heating? Not very hard 02/16/2024 PHQ-2 Answer Date Recorded Patient Health Questionnaire-2 Score 6 02/03/2024 [facility] - Occupational Stress Questionnaire Answer Date Recorded [...] place to sleep or slept in a alf (including now)? Yes 02/16/2024 Sex and Gender Information Value Date Recorded Sex Assigned at Not on file Gender Identity Not on file Sexual Orientation Not on file documented as of this encounter Last Filed Vital Signs Vital Sign Reading Time Taken Comments Blood Pressure 128/92 04/22/2024 8:29 AM CDT Pulse 81 04/22/2024 8:27 AM CDT Temperature 36.7 ??C (98 ??F) 04/22/2024 8:29 AM CDT Respiratory Rate 22 04/22/2024 8:27 AM CDT Oxygen Saturation 100% 04/22/2024 8:29 AM CDT Inhaled Oxygen Concentration - - Weight 81.6 kg (180 lb) 04/22/2024 8:27 AM CDT Height 182.9 cm (6') 04/22/2024 8:27 AM CDT Body Mass Index 24.41 04/22/2024 8:27 AM CDT documented in this encounter Functional Status Functional Status Response [...] No 02/16/2024 documented as of this encounter Discharge Instructions * Discharge Instructions* Marietta Ware MD - 04/22/2024 2:20 PM CDT Images from the original note were not included. Depression and Suicide in Older Adults Nearly 2 million older adults in the [place] have some type of depression. Some of them even take their own lives. Yet depression among older adults is often ignored. Learning about the warning signs ofdepression may help spare a loved one needless pain. You may also save a life. What is depression? Depression is a common and serious illness. It affects the way you think and feel. It is not a normal part of aging. It is not a sign of weakness, a character flaw, or something you can snap out of. Most people with depression need treatment to get better. The most common symptom is a feeling of deep sadness. People who are depressed also may seem tired and listless. And nothing seems to give them pleasure. It???s normal to grieve or be sad sometimes. But sadness lessens or passes with time. Depression rarely goes away or improves on its own. Other symptoms of depression are: Sleeping more or less than normal Eating more or less than normal Having headaches, stomachaches, or other pains that don???t go away Feeling nervous, ???empty,?? or worthless Crying a lot Thinking or talking about suicide or Loss of interest in activities previously enjoyed Social isolation Feeling confused or forgetful What causes it? The causes of depression aren???t fully known. But it is thought to result from a complex blend of these factors: Biochemistry. Certain chemicals in the brain play a role. Genes. Depression does run in families. Life stress. Life stresses can also trigger depression in some people. Older adults often face manystressors. These may include isolation, the of friends or a spouse, health problems, and financial concerns. Chronic health conditions. This includes diabetes, heart disease, or cancer. These can cause symptoms of depression. Medicine side effects can cause changes in thoughts and behaviors. Giving support Depressed people often may not want to ask for help. When they do, they may be ignored. Or they mayget the wrong treatment. You can help by showing parents and older friends love and support. If they seem depressed, don???t lecture the person or ignore the symptoms. Don't discount the symptoms as a ???normal?? part of aging. They are not. Get involved, listen, and show interest and support. Help them understand that depression is a treatable illness. Tell them you can help them find the right treatment. Offer to go to their healthcare provider's appointment with them for support when the symptoms are discussed. With their approval, contact a local mental health center, social service agency, or hospital about services. Helping at healthcare visits You can be an advocate for them at healthcare appointments. Many older adults have chronic illnesses. Many of these can cause symptoms of depression. Medicine side effects can change thoughts and behaviors. You can help make sure that the healthcare provider looks at all of these factors. They should refer your family member or friend to a mental healthcare provider when needed. In some cases, untreateddepression can lead to a misdiagnosis. A person may be diagnosed with a brain disorder such as dementia. If the healthcare provider does not take the issue of depression seriously, help your family member or friend find another provider. Asking about self-harm thoughts If you think an older person you care about could be suicidal, ask, ???Have you thought about suicide??? Most people will tell you the truth. If they say yes, they may already have a plan for how and when they will attempt it. Find out as much as you can. The more detailed the plan, and the easierit is to carry out, the more danger the person is in right now. Tell the person you are there for th and you do not want them to get harmed. Don't wait to get help for the person. Call the person'shealthcare provider, local hospital, or emergency services. Call 988 in a crisis Never leave the person alone. A person who is actively suicidal needs crisis care right away. They need constant supervision. Never leave the person out of sight. Call 988 Tell the crisis counselor you need help for a person who is thinking about suicide. The counselor will help you get the right level of crisis help. You may be advised to take the person to the nearest emergency room. The National Suicide Prevention Lifeline is available at 988, or 815-895-BZIN (694-749-0338), or www.suicidepreventionlifeline.org. When you call or text 988, you will be connected to trained counselors who are part of the National Suicide Prevention Lifeline network. An online chat option is also available. Lifeline is free and available 12/02. To learn more National Suicide Prevention Lifeline at www.suicidepreRentalroost.comlifeline.org or 695-669-CFPG (107-616-9503) National [place] on Mental Illness at www.breanna.org or 389-870-YSJB (147-947-5372) Mental Health [place] at www.[facility].org or 815-388-7486 National [place] of Mental Health at www.nimh.nih.gov or 360-086-3791 Last Reviewed Date: 2022 00:00:00 ?? 7333-7135 [employer]. All rights reserved. This information is not intended as a substitute for professional medical care. Always follow your healthcare professional's instructions. documented in this encounter Medications at Time of Discharge Medication Sig Dispensed Refills Start Date End Date ARIPiprazole (Abilify) 10 MG tablet TAKE ONE TABLET BY MOUTH ONCE DAILY 30 tablet 02/21/2024 02/20/2025 bictegravir-emtricitabine -tenofovir (Biktarvy) 50-200-25 MGIndications:Human Immunodeficiency Virus Disease Take 1 (one) tablet by mouth once daily Reasons: HIV Disease 30 tablet 08/08/2023 buPROPion XL 24hr (Wellbutrin-XL) 150 MG tablet Take 1 (one) tablet by mouth once daily 04/19/2024 busPIRone (Buspar) 10 MG tablet Take 1 (one) tablet by mouth 3 times daily 02/08/2024 doxepin (SINEquan) 25 MG capsuleIndications:sleep Take 1 (one) capsule by mouth at bedtime Reasons: sleep 30 capsule 02/14/2024 DULoxetine (Cymbalta) 30 MG capsule TAKE ONE CAPSULE BY MOUTH ONCE DAILY. TAKE WITH 60MG CAPSULES FOR A DAILY TOTAL OF 90MG 30 capsule 02/21/2024 02/20/2025 DULoxetine (Cymbalta) 60 MG capsule TAKE ONE CAPSULE BY MOUTH ONCE DAILY WITH 30 MG CAPSULE FOR A TOTAL OF 90 MG DAILY 30 capsule 02/21/2024 02/20/2025 HYDROcodone-acetaminophen (Medina) 5-325 MG tablet Take 1 (one) tablet by mouth every 6 hours as needed 04/09/2024 hydrOXYzine HCl (Atarax) 50 MG tablet Take 1 (one) tablet by mouth every 12 hours as needed 02/08/2024 hydrOXYzine HCl (Atarax) 50 MG tabletIndications:Anxiety Take 1 (one) tablet by mouth every 6 hours as needed (Anxiety) Reasons: Feeling Anxious 60 tablet 1 02/14/2024 prazosin (Minipress) 2 MG capsule TAKE ONE CAPSULE BY MOUTH EVERY NIGHT AT BEDTIME FOR 30 DAYS 30 capsule 02/21/2024 02/20/2025 traZODone (Desyrel) 50 MG tablet TAKE ONE TABLET BY MOUTH EVERY NIGHT AT BEDTIME NEEDED FOR INSOMNIA 30 tablet 02/21/2024 02/20/2025 doxepin (SINEquan) 25 MG capsule Take 1 (one) capsule by mouth 11/05/2023 05/06/2024 DULoxetine (Cymbalta) 60 MG capsule Take 1 (one) capsule by mouth once daily 30 capsule 10/26/2023 05/05/2024 documented as of this encounter Consult Notes * Larry Saenz MD - 04/22/2024 1:38 PM CDTAssociated Order(s): IP CONSULT TO PSYCHIATRY [facility] Psychiatry Staff Initial Consultation Name: Phil Chase Jr. Age: [age] year old Date of : 1995 Requesting physician: Rinku Mathews MD Subjective Reason for presentation to ED: Suicidal ideation Reason for Consult: positive suicide risk screening History of Present Illness: Phil Chase Jr. is a 28 year old male whom is with PMHx of HIV and a past psychiatric history of borderline personality disorder, unspecified depressive disorder, and stimulant use disorder who presented to ED on 04/22/2024 for suicidal ideation. The Psychiatry service was consulted to provide re commendations regarding suicide risk assessment and disposition. Upon interview, the patient reports that he is actively suicidal. He says that he has been feeling suicidal for about one week. He reports that prior to that things were going quite well for him. He is not able to name any particular trigger, but cites difficulties with his family. Per chart, these are chronic stressors in nature. He does not provide a history of them acutely worsening. He usesmethamphetamine every other day for the last 5 years, with most recent use occurring last night. Reports his sleep is poor secondary to methamphetamine use. He is not sure how it relates to his current suicidal thoughts. He feels like the best his life has been in the last several years is 2 months ago. Reports I was the man with the plan. At that time he was completing residential treatment at [facility]. He feels like he is ready to enroll in substance use treatment again. His suicide plan is overdose although he is not able to provide details with regard to intent, access to means, or what drug he would use. Collateral, Independent Distributor Isadora De La Rosa with [facility] : Isadora reports that the apartment in the [facility] mentioned by the patient would not be a good idea to discharge him to. It is where his sugar daddy is and they do drugs together. Reports [facility] rehab is likelythe best place for the patient upon discharge, he has burned his other bridges. The patient has Isadora's phone # memorized but since the patient does not have contact info she cannot get in touch with him, only hears from him when he is hospitalized. Psychiatric Review of Systems: All psychiatric ROS negative unless noted above. Past Psychiatric History: Prior Diagnoses: Per patient, bipolar, anxiety, depression, schizophrenia. Per chart ([facility] 04/11/2024), borderline personality disorder, unspecified depressive disorder, stimulant use disorder. Psych Inpatient Hospitalizations: Too numerous to count. Most recently admitted to [facility], discharged 04/14/2024. Last admission to [facility] was 4W ~725- Prior suicide attempts: Patient endorses 2. First tried to shoot myself in 2018 but does not givedetails of same when probed. Second was via overdose in 2022. Outpatient Psychiatrist/ Therapist: patient reports Carrie at [facility] for psychiatric care. Last seen 2 months ago. He reports she did not refill his medications. For therapy, sees Jose Roberto at [facility], but not recently. Prior Medication Trials: Pt reports hydroxyzine, cymbalta, hydroxyzine Current home psychiatric mediation regimen:Patient reports he is supposed to take aripiprazole, hydroxyzine, doxepin, wellburtrin, and cymbalta. He reports he does not have any of these medications and has not taken them recently Substance Use History: EtOH: Patient denies significant use. Drugs: Methamphetamine use Every 2 days for the last 5 years. He likes that it releases dopamine. He does not like that he does not eat or sleep when he uses it. Nicotine: Patient denies Tx programs: Too numerous to count. Most recently [facility] ~2 months ago Past Medical History: Past Medical History: Diagnosis Date Human immunodeficiency virus (HIV) disease ([facility]) Allergies: No Known Allergies Hospital Medications: Scheduled: No current facility-administered medications for this encounter. Continuous: No current facility-administered medications for this encounter. PRN: No current facility-administered medications for this encounter. Family Psychiatric History: Denies a family history of completed suicide Social History: History reported by the patient contradicts the history provided by his case liner. According to the patient he has his own apartment, lives by himself in [facility], pays for it by working [employer] from 3-11 PM most days. Not spiritual or quaker at all. Denies legal history. Denies significant family support or ongoing romantic relationship. Denies access to firearms. According to [facility] SW, patient does not have an apartment or a job. He has burned all his bridges at substance use treatment facilities other than [facility]. Legal History: No pertinent legal history reported Objective: Vitals: Patient Vitals for the past 6 hrs: Temp Pulse Resp BP 04/22/24 0829 98 ??F (36.7 ??C) -- -- 128/92 04/22/24 0827 -- 81 22 -- Diagnostic Imaging: No pertinent WAREHOUSE ANALYST imaging was obtained. EKG: Results for orders placed or performed during the hospital encounter of 02/15/24 EKG 12-LEAD Result Value Ref Range Ventricular Rate 90 BPM Atrial Rate 90 BPM P-R Interval 172 ms QRS Duration ms 92 ms Q-T Interval ms 358 ms QTC Calculation (Bezet) 437 ms Calculated P [place] 58 degrees Calculated R [place] 68 degrees Calculated T [place] 54 degrees Interpretation EKG NORMAL SINUS RHYTHM NORMAL ECG NO PREVIOUS ECGS AVAILABLE Confirmed by BLANE STAPLETON MD ([id number]) on 02/17/2024 5:33:31 PM Diagnostic Labs: Recent Labs Component Name 04/22/24100602/15/24 1728 02/11/24 2247 AMPHETUR - - Not detected LABAMPH Positive* - - LABBARB Negative - - BARBITURATUR - - Not detected LABBENZ Negative - - BENZODIAZUR - - Not detected THCUR Negative - Not detected COCAINEUR - - Not detected COCAINESCRN Negative - - METHADONEUR - - Not detected OPIATESUR - - Not detected PCPUR Negative - Not detected - = values in this interval not displayed. Recent Labs Component Name 04/22/24100602/15/24 1704 02/03/24 1916 ETHANOL - - <10.0 ETHANOLCALC <0.010 - <0.010 - = values in this interval not displayed. Labs for the past 24 hours have been reviewed and they are notable for: UDS + methamphetamine, WBC 2.5 (per ED, does not require medical admission). Mental Status Examination Appearance: male, appears stated age, groomed, average build, no acute distress Psychomotor: no agitation and no retardation Attitude toward examiner: superficially cooperative Mood: depressed Affect: Incongruent to situation. Constricted. Intense eye contact. Speech: Quality is Clear. Rate is Normal. Volume is Normal. Thought Process: concrete Thought Content: endorses suicidal ideation, denies homicidal ideation and no apparent delusions Perception: reports auditory hallucinations, denies that they are commanding, does not share further intent. Denies VH. not reacting to internal stimuli Fund of Knowledge: Below Average Insight: limited Judgment: fair Gait: steady Assessment: Clinical reasoning: While the patient reports active suicidal ideation with a plan, he is not able to name any particular recent triggers from which the increase in ideation has resulted. He provides information with regard to past psychiatric history and social history that is contradicted by the chart and a reliablecollateral historian. He has chronic suicidal ideation, largely a result of prior diagnosed borderline personality disorder and an ongoing and severe stimulant use disorder. I do not anticipate that we will be able to significantly modify either of these major diagnoses contributing to the suicidality with inpatient treatment; in my opinion there is no indication for inpatient psychiatric admission for this reason. He has recent admissions too numerous to count which have not been successful inmodifying these major risk factors; it would be unreasonable for me to expect that another hospitalization would modify them at this time.The patient remains at chronically elevated suicide risk, Dorinda have provided motivational enhancement therapy in an attempt to move him further toward change with regard to his substance use. I will not offer inpatient admission at this time which is likely toreinforce maladaptive behaviors. The patient has information for his [facility] case liner which is where he receives outpatient treatment. We will encourage him to follow up there. Psychiatric Diagnoses: Borderline personality disorder by history Stimulant use disorder, severe Rule out malingering Plan: Disposition: There is no psychiatric contraindication to discharge. Disposition per ED. Follow up: Patient has correct information for [facility] therapy/case management/med management. We will encourage him to utilize this. Precautions: None 5. Psychosocial needs: We greatly appreciate social work's support with providing substance use treatment resources. We will sign off. We are happy to return upon request. Signed: Larry Saenz MD 04/22/2024 1:39 PM documented in this encounter ED Notes * Trish Monroy RN - 04/22/2024 2:41 PM CDT Pt is awake and alert GCS 15. Breathing is regular and nonlabored. Skin is warm and dry. Gait is steady with no assistance. Proper discharge clothing. Discharge teaching successful as evidence by no further questions/concerns/needs. Pt ready for discharge. * Trish Monroy RN - 04/22/2024 2:22 PM CDT Pt is awake and alert GCS 15. Breathing is regular and nonlabored. Skin is warm and dry. Gait is steady with no assistance. Proper discharge clothing. Discharge teaching successful as evidence by no further questions/concerns/needs. Pt ready for discharge. * Rinku Mathews MD - 04/22/2024 12:16 PM CDT Emergency Physician note I have performed an independent history and physical examination and discussed the patient's management with the resident. I agree with the findings, assessment and plan of care as documented by the resident except as noted below. Any radiology studies performed during the patient's Emergency Department stay were ordered and reviewed directly under my supervision. History: Patient presents stating that for several weeks has been feeling stressed and overwhelmed and suicidal. Patient has not attempted suicide. Denies any physical complaints. Past medical history positive for depression. Also HIV. Past Medical History: Diagnosis Date Human immunodeficiency virus (HIV) disease (HCC) Past Surgical History: Procedure Laterality Date HERNIA REPAIR, INGUINAL Right 04/13/2023 Right; REPAIR RIGHT INGUINAL HERNIA WITH MESH (OPEN ) Lumbar Laminectomy Social History Tobacco Use Smoking status: Former Passive exposure: Never Smokeless tobacco: Never Tobacco comments: Vape several times a day Vaping Use Vaping Use: Former Substance Use Topics Alcohol use: Not Currently Comment: socially Drug use: Yes Types: Marijuana, Methamphetamines No Known Allergies No current facility-administered medications for this encounter. Current Outpatient Medications Medication Sig ARIPiprazole (Abilify) 10 MG tablet TAKE ONE TABLET BY MOUTH ONCE DAILY qefydqqxrlw-ugreektccfcqc-yztluezwx (Biktarvy) 50-200-25 MG Take 1 (one) tablet by mouth once dailyReasons: HIV Disease doxepin (SINEquan) 25 MG capsule Take 1 (one) capsule by mouth at bedtime Reasons: sleep DULoxetine (Cymbalta) 30 MG capsule TAKE ONE CAPSULE BY MOUTH ONCE DAILY. TAKE WITH 60MG CAPSULES FOR A DAILY TOTAL OF 90MG DULoxetine (Cymbalta) 60 MG capsule TAKE ONE CAPSULE BY MOUTH ONCE DAILY WITH 30 MG CAPSULE FOR A TOTAL OF 90 MG DAILY DULoxetine (Cymbalta) 60 MG capsule Take 1 (one) capsule by mouth once daily hydrOXYzine HCl (Atarax) 50 MG tablet Take 1 (one) tablet by mouth every 6 hours as needed (Anxiety) Reasons: Feeling Anxious prazosin (Minipress) 2 MG capsule TAKE ONE CAPSULE BY MOUTH EVERY NIGHT AT BEDTIME FOR 30 DAYS traZODone (Desyrel) 50 MG tablet TAKE ONE TABLET BY MOUTH EVERY NIGHT AT BEDTIME NEEDED FOR INSOMNIA Exam: Vitals: 04/22/24 0827 04/22/24 0829 BP: 128/92 Pulse: 81 Resp: 22 Temp: 98 ??F (36.7 ??C) SpO2: 100% Weight: 81.6 kg (180 lb) Height: 1.829 m (6') Gen- no acute distress Eyes- normal conjunctiva Ent- no neck swelling Cv- heart without murmur, normal pulses bilateral radial Resp- lung clear to auscultation Abd- soft, nontender, normal bowel sounds Ms- no ext swelling Neuro- normal motor all 4 Psych- normal affect MDM: DDx: Depression-reactive versus major depressive disorder, positive suicidal ideation Plan: Screening labs, psych eval DATA REVIEW: Labs Reviewed CBC W AUTO DIFFERENTIAL - Abnormal; Notable for the following components: Result Value WBC 2.5 (*) Hemoglobin 12.8 (*) MCH 26.1 (*) All other components within normal limits COMPREHENSIVE METABOLIC PANEL - Abnormal; Notable for the following components: Chloride 109 (*) Anion Gap 3 (*) Albumin/Globulin Ratio 0.9 (*) All other components within normal limits URINE DRUG SCREEN IMMUNOASSAY - Abnormal; Notable for the following components: Amphetamines Screen Urine Positive (*) All other components within normal limits Narrative: The Urine Toxicology Screening Panel does not screen for Propoxyphene, Meprobamate, Carisoprodol, Trazodone, ovsa-cbh-etevqeq medications and/or volatiles (Acetone, Isopropanol, Methanol or Ethylene Glycol). Ethanol, Salicylate, Acetaminophen, Tricyclic Antidepressants and several therapeutic drugsmay be individually assayed in serum or plasma specimen. Toxicology testing by the [facility] is an aid to medical diagnosisand treatment of patients. No documented chain of custody was maintained. Results are intended to be used for clinical purposes only. DIFFERENTIAL MANUAL - Abnormal; Notable for the following components: Neutrophil % 27 (*) Lymphocyte % 59 (*) Neutrophil Absolute 0.68 (*) Smudge Cells PRESENT (*) Large Platelets PRESENT (*) All other components within normal limits MAGNESIUM BLOOD - Normal ALCOHOL ETHYL BLOOD - Normal Narrative: Ethanol Interp <10: None Detected. Depression of WAREHOUSE ANALYST: >100 mg/dl Potentially Critical: >250 mg/dl Potentially Fatal >400 mg/dl Ethanol in the patient's blood will contribute to the osmolar gap. Ethanol's contribution to the osmolar gap can be estimated by dividing the concentration of ethanol in mg/dL by 4.6. This test is for clinical use only and does not equal a MICHAELLE for legal purposes. Lab interpret: Benign by my review, UDS positive No orders to display Rad interpret: ED COURSE Patient arrived with depression. Patient medically cleared for psychiatric evaluation. Patient seen by psychiatry and they feel patient can be treated as an outpatient and discharged. pt counseled on findings and plan Clinical Impression: Acute depression with suicidal ideation Disposition: Discharge Consult: Yes psychiatry Rinku Mathews MD 04/22/2024 12:16 PM * Trish Monroy RN - 04/22/2024 10:45 AM CDT Pt sexually inappropriate. While this RN was obtaining labs, pt had his other arm underneath blanket and started masturbating. When asked what he was doing underneath blanket, pt stated nothing. RNasked pt to keep both arms above the covers while RN remained in the room with security and EDT [place], pt compliant and appropriate for the rest of his workup. As this RN was exiting pt room, pt started aggressively masturbating and moaning. Pt informed his behavior is inappropriate and not tolerated here. Pt agreeable to keeping both arms above the blankets while female staff is in the room. * Marietta Ware MD - 04/22/2024 8:58 AM CDT Phil Chase . [id number] [facility] History Chief Complaint Patient presents with ??? SUICIDAL Pt states several weeks of overwhelming depression and 2 weeks ago attempted SI. Pt states he wouldshoot himself. Pt states thing have not been going well and he's too tired to take anymore. Pt is extremely anxiour Patient presents with depression, suicidal thoughts/threats, and suicide attempt Overdose of: Antianxiety: Xanax, Quantity: 8pills approximately 1day ago. Onset of symptoms was gradual. Symptoms are of severe severity and are gradually worsening. Started about two months ago Patient states symptoms have been exacerbated by financial burdens and of a friend. Symptoms are associated with previous suicide attempts, drug or alcohol intoxication, and past psychiatric history: suicidal ideation. Past Medical History: Diagnosis Date ??? Human immunodeficiency virus (HIV) disease (HCC) Past Surgical History: Procedure Laterality Date ??? HERNIA REPAIR, INGUINAL Right 04/13/2023 Right; REPAIR RIGHT INGUINAL HERNIA WITH MESH (OPEN ) ??? Lumbar Laminectomy No family history on file. Social History Socioeconomic History ??? Marital status: Single Spouse name: Not on file ??? Number of children: Not on file ??? Years of education: Not on file ??? Highest education level: Not on file Occupational History ??? Not on file Tobacco Use ??? Smoking status: Former Passive exposure: Never ??? Smokeless tobacco: Never ??? Tobacco comments: Vape several times a day Vaping Use ??? Vaping Use: Former Substance and Sexual Activity ??? Alcohol use: Not Currently Comment: socially ??? Drug use: Yes Types: Marijuana, Methamphetamines ??? Sexual activity: Not on file Other Topics Concern ??? Not on file Social History Narrative ??? Not on file Social Determinants of Health Financial Resource Strain: Low Risk (02/16/2024) Overall Financial Resource Strain (CARDIA) ??? Difficulty of Paying Living Expenses: Not very hard Recent Concern: Financial Resource Strain - Medium Risk (12/24/2023) Overall Financial Resource Strain (CARDIA) ??? Difficulty of Paying Living Expenses: Somewhat hard Food Insecurity: No Food Insecurity (02/16/2024) Hunger Vital Sign ??? Worried About Running Out of Food in the Last Year: Never true ??? Ran Out of Food in the Last Year: Never true Transportation Needs: Unmet Transportation Needs (02/16/2024) PRAPARE - Transportation ??? Lack of Transportation (Medical): No ??? Lack of Transportation (Non-Medical): Yes Stress: Stress Concern Present (02/16/2024) [facility] of Occupational Health - Occupational Stress Questionnaire ??? Feeling of Stress : Rather much Housing Stability: High Risk (02/16/2024) Housing Stability Vital Sign ??? Unable to Pay for Housing in the Last Year: No ??? Number of Places Lived in the Last Year: 2 ??? Unstable Housing in the Last Year: Yes Review of Systems Review of Systems Constitutional: Negative. HENT: Negative. Eyes: Negative. Respiratory: Negative. Cardiovascular: Negative. Gastrointestinal: Negative. Skin: Negative. Neurological: Negative. Endo/Heme/Allergies: Negative. Psychiatric/Behavioral: Positive for depression, substance abuse and suicidal ideas. Negative for hallucinations and memory loss. The patient is not nervous/anxious and does not have insomnia. Physical Exam BP 128/92 Pulse 81 Temp 98 ??F (36.7 ??C) Resp 22 Ht 1.829 m (6') Wt 81.6 kg (180 lb) SpO2 100% BMI 24.41 kg/m?? Physical Exam Constitutional: Appearance: He is toxic-appearing. HENT: Mouth/Throat: Mouth: Mucous membranes are moist. Eyes: Pupils: Pupils are equal, round, and reactive to light. Cardiovascular: Rate and Rhythm: Normal rate and regular rhythm. Pulses: Normal pulses. Heart sounds: Normal heart sounds. Pulmonary: Effort: Pulmonary effort is normal. Breath sounds: Normal breath sounds. Musculoskeletal: General: Normal range of motion. Skin: General: Skin is warm. Neurological: General: No focal deficit present. Mental Status: He is alert. Psychiatric: Mood and Affect: Mood is anxious and depressed. Speech: Speech normal. Behavior: Behavior is cooperative. Thought Content: Thought content is not delusional. Thought content includes suicidal ideation. Thought content does not include homicidal plan. Medications Current Outpatient Medications Medication Sig Dispense Refill ??? ARIPiprazole (Abilify) 10 MG tablet TAKE ONE TABLET BY MOUTH ONCE DAILY 30 tablet 0 ??? ccddvtylgoy-egezewwiystzk-jicvidwfa (Biktarvy) 50-200-25 MG Take 1 (one) tablet by mouth once daily Reasons: HIV Disease 30 tablet 0 ??? doxepin (SINEquan) 25 MG capsule Take 1 (one) capsule by mouth at bedtime Reasons: sleep 30 capsule 0 ??? DULoxetine (Cymbalta) 30 MG capsule TAKE ONE CAPSULE BY MOUTH ONCE DAILY. TAKE WITH 60MG CAPSULES FOR A DAILY TOTAL OF 90MG 30 capsule 0 ??? DULoxetine (Cymbalta) 60 MG capsule TAKE ONE CAPSULE BY MOUTH ONCE DAILY WITH 30 MG CAPSULE FORA TOTAL OF 90 MG DAILY 30 capsule 0 ??? DULoxetine (Cymbalta) 60 MG capsule Take 1 (one) capsule by mouth once daily 30 capsule 0 ??? hydrOXYzine HCl (Atarax) 50 MG tablet Take 1 (one) tablet by mouth every 6 hours as needed (Anxiety) Reasons: Feeling Anxious 60 tablet 1 ??? prazosin (Minipress) 2 MG capsule TAKE ONE CAPSULE BY MOUTH EVERY NIGHT AT BEDTIME FOR 30 DAYS 30 capsule 0 ??? traZODone (Desyrel) 50 MG tablet TAKE ONE TABLET BY MOUTH EVERY NIGHT AT BEDTIME NEEDED FOR INSOMNIA 30 tablet 0 Procedures Procedures Lab Interpretation Oxygen Saturation Interpretation No results found for this visit on 04/22/24. No orders to display Progress Notes ED Course Clinical Impressions as of 04/23/24 0855 Bipolar I disorder (HCC) Suicidal ideation Medical Decision Making Amount and/or Complexity of Data Reviewed Labs: ordered. ECG/medicine tests: ordered. Suicidal ideation Patient reports that this is in the setting of housing instability and recent loss of a friend. Took 8 pills of xanax in an attempt to take his life yesterday. Has not been adherent to his bipolar medications Plan: Psychiatry consultation Orders Placed This Encounter ??? CBC W AUTO DIFFERENTIAL ??? COMPREHENSIVE METABOLIC PANEL ??? MAGNESIUM BLOOD ??? ALCOHOL ETHYL BLOOD ??? URINE DRUG SCREEN IMMUNOASSAY ??? IP CONSULT TO PSYCHIATRY ??? EKG 12-LEAD * Wally Aponte - 04/22/2024 8:42 AM CDT BIN#[id number] documented in this encounter Plan of Treatment Not on file documented as of this encounter Procedures Procedure Name Priority Date/Time Associated Diagnosis Comments CARDIAC EKG ORDER 04/24/2024 1:5 3 PM CDT EKG 12-LEAD Routine 04/22/2024 1:46 PM CDT Bipolar I disorder (HCC) DIFFERENTIAL MANUAL STAT 04/22/2024 1 0:07 AM CDT CBC W AUTO DIFFERENTIAL STAT 04/22/2024 10:07 AM CDT COMPREHENSIVE METABOLIC PANEL STAT 04/22/2024 10:07 AM CDT URINE DRUG SCREEN IMMUNOASSAY STAT 04/22/2024 10:07 AM CDT MAGNESIUM BLOOD STAT 04/22/2024 10:07 AM CDT ALCOHOL ETHYL BLOOD STAT 04/22/2024 1 0:07 AM CDT documented in this encounter Results * CARDIAC EKG ORDER (04/24/2024 1:53 PM CDT) Narrative 04/24/2024 1:53 PM CDT Ordered by an unspecified provider. Scanned Document CARDIAC SERVICES ORD ERABLES * EKG 12-LEAD (04/22/2024 1:46 PM CDT) Ventricular Rate 43 BPM [facility] Atrial Rate 43 BPM [facility] P-R Interval 172 ms [facility] QRS Duration ms 104 ms [facility] Q-T Interval ms 480 ms [facility] QTC Calculation (Bezet) 405 ms [facility] Calculated P [place] 65 degrees [facility] Calculated R [place] 84 degrees [facility] Calculated T [place] 73 degrees [facility] Interpretation EKG MARKED SINUS BRADYCARDIA EARLY REPOLARIZATION OTHERWISE NORMAL ECG VENT. RATE HAS DECREASED 50 bpm Confirmed by JANNETTE RUIZ, SOPHIE ([id number]) on 04/23/2024 2:59:11 PM [facility] 04/22/2024 1:46 PM CDT 04/23/2024 2:59 PM CDT Rinku Mathews MD ECG ORDERABLES [facility] * (ABNORMAL) DIFFERENTIAL MANUAL (04/22/2024 10:07 AM CDT) Neutrophil % 27(L) 41 - 74 % 04/22/2024 11:43 AM [facility] Lymphocyte % 59(H) 17 - 47 % 04/22/2024 11:43 AM [facility] Monocyte % 10 3 - 11 % 04/22/2024 11:43 AM [facility] Eosinophil % 4 0 - 7 % 04/22/2024 11:43 AM [facility] Neutrophil Absolute 0.68(L) 1.60 - 7.50 x10E9/L 04/22/2024 11:43 AM [facility] Lymphocyte Absolute 1.48 1.00 - 4.40 x10E9/L 04/22/2024 11:43 AM [facility] Monocyte Absolute 0.25 0.15 - 1.00 x10E9/L 04/22/2024 11:43 AM [facility] Eosinophil Absolute 0.10 0.00 - 0.60 x10E9/L 04/22/2024 11:43 AM [facility] RBC Morphology REVIEWED 04/22/2024 11:43 AM [facility] Smudge Cells PRESENT(A) (none) 04/22/2024 11:43 AM [facility] Large Platelets PRESENT(A) (none) 04/22/2024 11:43 AM [facility] Blood BLOOD SPECIMEN / Unknown Venipuncture / Unknown 04/22/2024 10:07 AM CDT 04/22/2024 10:12 AM CDT Rinku Mathews MD LAB - HEMATOLOGY ORD ERABLES [address] [address], [facility] [phone] * (ABNORMAL) URINE DRUG SCREEN IMMUNOASSAY (04/22/2024 10:07 AM [facility]) [facility] Amphetamines Screen Urine Positive(A) Negative : < 1000 ng/mL 04/22/2024 10:32 AM [facility] Comment: Positive urine amphetamine screening results should be confirmed by another generally accepted non-immunological method such as gas chromatography or mass spectrometry. ? Barbiturates Screen Urine Negative Negative : < 200 ng/mL 04/22/2024 10:32 AM [facility] Benzodiazepine Screen Urine Negative Negative : < 200 ng/mL 04/22/2024 10:32 AM [facility] Opiates Urine Negative Negative : < 300 ng/mL 04/22/2024 10:32 AM [facility] Cocaine Metabolites Urine Negative Negative : < 300 ng/mL 04/22/2024 10:32 AM [facility] Phencyclidine Screen Urine Negative Negative : < 25 ng/ml 04/22/2024 10:32 AM [facility] Cannabinoids Screen Urine Negative Negative : <50 ng/mL 04/22/2024 10:32 AM [facility] Methadone Screen Urine Negative Negative : < 300 ng/mL 04/22/2024 10:32 AM [facility] Fentanyl Screen Urine Negative Negative : <1.5 ng/mL 04/22/2024 10:32 AM [facility] Urine URINE / Unknown Collection / Unknown 04/22/2024 10:07 AM T 04/22/2024 10:09 AM [facility] - 04/22/2024 10:32 AM [facility] The Urine Toxicology Screening Panel does not screen for Propoxyphene, Meprobamate, Carisoprodol, Trazodone, sxke-xmg-iqgrigo medications and/or volatiles (Acetone, Isopropanol, Methanol or Ethylene Glycol). Ethanol, Salicylate, Acetaminophen, Tricyclic Antidepressants and several therapeutic drugs may be individually assayed in serum or plasma specimen. Toxicology testing by the [facility] is an aid to medical diagnosis and treatment of patients. No documented chain of custody was maintained. Results are intended to be used for clinical purposes only. ? Rinku Mathews MD LAB - URINE CHEMISTR Y ORDERABLES Performing Organization Address [facility]/State/[facility] de Phone Number [address] [address], [facility] [phone] * ALCOHOL ETHYL BLOOD (04/22/2024 10:07 AM CDT) Ethanol (mg/dL) <10 <10 mg/dL 10:42 AM CDT [facility] Ethanol Calculated (g/dL) <0.010 <=0.010 g/dL 04/22/2024 10:42 AM T [facility] Blood BLOOD SPECIMEN / Unknown Venipuncture / Unknown 04/22/2024 10:07 AM CDT 04/22/2024 10:11 AM CDT Narrative [facility] - 04/22/2024 10:42 AM CDT Ethanol Interp <10: None Detected. Depression of WAREHOUSE ANALYST: >100 mg/dl Potentially Critical: >250 mg/dl Potentially Fatal >400 mg/dl Ethanol in the patient's blood will contribute to the osmolar gap. Ethanol's contribution to the osmolar gap can be estimated by dividing the concentration of ethanol in mg/dL by 4.6. This test is for clinical use only and does not equal a MICHAELLE for legal purposes. Rinku Mathews MD LAB - CHEMISTRY AMANDA CYNDEEBRITTANY [address] [address], [facility] [phone] * MAGNESIUM BLOOD (04/22/2024 10:07 AM CDT) Magnesium 2.2 1.6 - 2.6 mg/dL 04/22/2024 10:42 AM [facility] Blood BLOOD SPECIMEN / Unknown Venipuncture / Unknown 04/22/2024 10:07 AM CDT 04/22/2024 10:11 AM T Rinku Mathews MD LAB - CHEMISTRY AMANDA MELENDREZ Performing Organization Address City/[facility]/ZIP Co de Phone Number [address] [address], [facility] [phone] * (ABNORMAL) COMPREHENSIVE METABOLIC PANEL (04/22/2024 10:07 AM CDT) BUN 18 7 - 26 mg/dL 04/22/2024 10:42 AM [facility] Creatinine 0.98 0.71 - 1.16 mg/dL 04/22/2024 10:42 AM [facility] Sodium 137 136 - 145 mmol/L 04/22/2024 10:42 AM [facility] Potassium 4.3 3.5 - 4.5 mmol/L 04/22/2024 10:42 AM [facility] Chloride 109(H) 98 - 107 mmol/L 04/22/2024 10:42 AM [facility] CO2 25 22 - 29 mmol/L 04/22/2024 10:42 AM [facility] Glucose 76 70 - 115 mg/dL 04/22/2024 10:42 AM [facility] Calcium 8.8 8.4 - 10.2 mg/dL 04/22/2024 10:42 AM [facility] Protein Total 8.0 6.0 - 8.3 g/dL 04/22/2024 10:42 AM [facility] Albumin 3.7 3.4 - 5.0 g/dL 04/22/2024 10:42 AM [facility] Bilirubin Total 1.0 0.2 - 1.2 mg/dL 04/22/2024 10:42 AM [facility] Alkaline Phosphatase 67 40 - 150 U/L 04/22/2024 10:42 AM [facility] ALT 27 5 - 55 U/L 04/22/2024 10:42 AM [facility] AST 31 5 - 34 U/L 04/22/2024 10:42 AM [facility] Anion Gap 3(L) 6 - 16 04/22/2024 10:42 AM [facility] BUN/Creatinine Ratio 18 7 - 23 04/22/2024 10:42 AM [facility] Osmolality Calculated 285 275 - 295 mOsm/kg 04/22/2024 10:42 AM [facility] Albumin/Globulin Ratio 0.9(L) 1.1 - 2.3 04/22/2024 10:42 AM [facility] eGFR by CKD-EPI >90 >=90 mL/min/1.7 3 m2 04/22/2024 10:42 AM [facility] Blood BLOOD SPECIMEN / Unknown Venipuncture / Unknown 04/22/2024 10:07 AM T 04/22/2024 10:11 AM [facility] Rinku Mathews MD LAB - CHEMISTRY AMANDA MELENDREZ [facility] Organization Address [facility] Co de Phone Number [address] [phone] [phone] * (ABNORMAL) CBC W AUTO DIFFERENTIAL (04/22/2024 10:07 AM [facility]) WBC 2.5(L) 4.0 - 10.7 x10E9/L 04/22/2024 11:43 AM [facility] RBC Count 4.90 4.30 - 5.80 x10E12/L 04/22/2024 11:43 AM [facility] Hemoglobin 12.8(L) 13.3 - 17.5 g/dL 04/22/2024 11:43 AM [facility] Hematocrit 40.3 38.7 - 51.1 % 04/22/2024 11:43 AM [facility] MCV 82.2 80.0 - 98.0 fL 04/22/2024 11:43 AM [facility] MCH 26.1(L) 26.7 - 33.6 pg 04/22/2024 11:43 AM [facility] MCHC 31.8 31.7 - 36.3 g/dL 04/22/2024 11:43 AM [facility] RDW-CV 14.3 11.3 - 14.8 % 04/22/2024 11:43 AM [facility] Platelet Count 323 150 - 420 x10E9/L 04/22/2024 11:43 AM [facility] MPV 9.5 7.8 - 11.4 fL 04/22/2024 11:43 AM [facility] Blood BLOOD SPECIMEN / Unknown Venipuncture / Unknown 04/22/2024 10:07 AM CDT 04/22/2024 10:12 AM T Rinku Mathews MD LAB - HEMATOLOGY ORD ERABLES Performing Organization Address City/State/[facility] Co de Phone Number [facility] [address] [place] [address], [facility] [phone] documented in this encounter Visit Diagnoses Diagnosis Suicidal ideation- Primary Bipolar I disorder (HCC) Bipolar I disorder, most recent episode (or current) unspecified documented in this encounter Care Teams 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
--- OUTSIDE RECORDS SUMMARY | 2024-08-10 03:29 | XMS_ITS | Encounter Summary ---
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 History of ETOH/Opiates/Other Substance abuse ? Active withdrawal or risk of withdrawal from ETOH/Opiate José Symptoms: ? Anhedonia ? Impulsivity ? Hopelessness ? Anxiety/Panic ? Global insomnia (difficulty falling asleep, maintaining sleep, or falling back to sleep) ? Command Hallucinations Family History Risk Factors: ? Suicide Attempts ? Psychiatric disorders requiring hospitalization ? Suicidal Behavior Precipitants/Stressors/Interpersonal/Triggers: ? Events leading to humiliation, shame, or despair ? Family turmoil/chaos ? Chronic physical pain or other acute medical problems ? Perceived burden on others ? Ongoing medical illness ? History of physical or sexual abuse ? Legal problems ? Intoxication ? Social isolation ? Inadequate social support Treatment: ? Medication management ? Therapy ? Satisfied with current treatment ? Recent discharge from a psychiatric hospital ? Recent change in provider or treatment ? Access to firearms/ammunition Protective Factors Internal: ? Ability to cope with stress ? Identifies reasons for living ? Frustration tolerance ? Tenriism beliefs ? Fear of or the actual act of killing self External: ? Cultural factors against suicide ? Beloved pets ? Engaged in work or school ? Spiritual and/or moral attitudes against suicide ? Supportive social network of family or friends ? Responsibility to children/others ? Positive therapeutic relationships Tarsha Singh , [facility] documented in this encounter ED Notes * Nichole Bowers RN - 01/17/2024 7:40 AM CDT Therapist/MD called this RN to initiate video chat on stationary computer at nursing station. Went to locate a WOW and then attempted to initiate but audio was not working. CSN double-checked functionality of WOW, ensuring audio was not muted on our end. Therapist/MD to call back later. * Nichole Bowers RN - 01/17/2024 7:30 AM CDT Assumed care of patient from triage. Patient resting in room, A&Ox4, respirations unlabored, VSS, NAD. Denies SI/HI/AVH/SIB/etoh/drug use. Patient confirmed to be his own guardian and is to be discharged per JESE Mike. * Mary Grace Cox MD - 01/17/2024 12:27 AM CDT Phil Chase Jr. [id number] [facility] History Chief Complaint Patient presents with SUICIDAL Patient came in via EMS for c/o SI from [facility]. Per EMS pt relapsed on meth recently and is now SI> Denies plan. Denies HI/hallucinations Chief complaint narrative was entered by triage nurse, not by physician. 12:27 AM: Phil Chase Jr., a 28 year old who identifies as male with a past medical history that includes--HIV--presents to the ER c/o suicidal ideation with plan to use meth to kill himself. He appears intoxicated currently. He denies having taken any action to harm himself today. Denies any physical complaints or injuries. PCP: Provider Unknown Past Medical History: Diagnosis Date Human immunodeficiency virus (HIV) disease (HCC) Past Surgical History: Procedure Laterality Date HERNIA REPAIR, INGUINAL Right 04/13/2023 Right; REPAIR RIGHT INGUINAL HERNIA WITH MESH (OPEN ) Lumbar Laminectomy Review of Systems The patient denies any physical complaints or injuries. Physical Exam BP 122/65 (BP Location: Right arm, Patient Position: Sitting) Pulse 58 Temp 97.4 ??F (36.3 ??C)(Oral) Resp 16 Ht 1.829 m (6') Wt 81.6 kg (180 lb) SpO2 100% BMI 24.41 kg/m?? Physical Exam Vitals reviewed. Constitutional: Appearance: He is well-developed. HENT: Head: Normocephalic and atraumatic. Eyes: Extraocular Movements: Extraocular movements intact. Conjunctiva/sclera: Conjunctivae normal. Neck: Trachea: No tracheal deviation. Pulmonary: Effort: Pulmonary effort is normal. No respiratory distress. Abdominal: General: There is no distension. Palpations: Abdomen is soft. Musculoskeletal: General: No deformity. Normal range of motion. Cervical back: Normal range of motion and neck supple. Skin: General: Skin is warm and dry. Neurological: General: No focal deficit present. Mental Status: He is alert. Mental status is at baseline. Comments: Myoclonic jerks Psychiatric: Attention and Perception: He is inattentive. Mood and Affect: Mood is anxious. Speech: Speech is delayed. Behavior: Behavior is cooperative. Thought Content: Thought content includes suicidal ideation. Thought content includes suicidal plan. Lab Interpretation Oxygen Saturation Interpretation The oxygen saturation level is: 100%. The patient was on Room Air for the saturation measurement. Measurement frequency: Spot Check. Oxygen saturation interpretation is Normal. Intervention(s) used: Patient Observed. Medications Current Outpatient Medications Medication Sig Dispense Refill ARIPiprazole (Abilify) 15 MG tablet Take 1 (one) tablet by mouth at bedtime Reasons: BPD 30 tablet 0 vrnvrhrelsg-rbkowgvuppuau-mtaznozno (Biktarvy) 50-200-25 MG Take 1 (one) tablet by mouth once dailyReasons: HIV Disease 30 tablet 0 doxepin (SINEquan) 25 MG capsule Take 1 (one) capsule by mouth at bedtime Reasons: sleep 30 capsule0 DULoxetine (Cymbalta) 20 MG capsule Take 1 (one) capsule by mouth once daily 15 capsule 1 DULoxetine (Cymbalta) 60 MG capsule Take 1 (one) capsule by mouth once daily Reasons: Major Depressive Disorder 30 capsule 0 hydrOXYzine HCl (Atarax) 50 MG tablet Take 1 (one) tablet by mouth 3 times daily as needed (anxiety) Reasons: Feeling Anxious 30 tablet 0 Procedures Procedures No results found for this visit on 01/16/24. No orders to display Assessment / Plan / MDM / ED Course At present time, there is no evidence of nonbehavioral medical emergency that would preclude psychiatric admission for further psychiatric evaluation and stabilization, and further medical evaluationas deemed indicated by ongoing assessment. The patient is thus felt to be clinically stable for psychiatric admission if indicated. 8:00 AM Per Rinku Pichardo TAG WRITER (psychiatry) the patient does not meet admission criteria and may be discharged with outpatient resources. 8:10 AM Per [facility] psychiatrist, admission is recommended. I again discussed with psychiatry TAG WRITER who evaluated the patient in person, and he maintains the patient may be discharge. He will make the needed medication adjustments. Other ddx include, and found to be less likely: True psychosis, malingering, metabolic encephalopathy Social Determinants of Health: Support System: Unknown Housing Situation: Suspected to be homeless [place] Language: Macedonian Ability to Manage Medications: Poor Access to Health Care: Poor Psychiatric Co-morbidities: Bipolar Disorder Substance Use/Abuse Factors: Methamphetamine Abuse Pulse oximetry independently reviewed by me. Prior records & Care Everywhere if available interpreted by me. Disposition considered: Admission considered in the need will be determined after central intake evaluation Of note, this document was completed using dictation software. Please excuse any typographical errors. Encounter Diagnosis Name Primary? Substance induced mood disorder (HCC) Yes ED Disposition ED Disposition Discharge Comment -- * [place] - 01/16/2024 11:40 PM CDT Patient changed into BH scrubs, clothes and belongings secured w/ security * Leia Bonilla RN - 01/16/2024 11:23 PM CDT Bed: [id number] Expected date: Expected time: Means of arrival: Comments: [id number] documented in this encounter Miscellaneous Notes * Clinical References AVS - Mary Grace Cox MD - 01/17/2024 8:32 AM CDT [id number] Drug Abuse Use and abuse of drugs or medicines may lead to addiction or dependence. You may hear drug abuse oraddiction called substance use disorder (MAURI). Examples of illegal drugs include amphetamines (alsoknown as speed or crank), methamphetamines (meth), cocaine, heroin, bath salts, and hallucinogens (such as MDMA, ecstasy, PCP, mescaline, and LSD). Xylazine is a sedative and pain reliever approved only for animals. It's not approved or safe for people. It's known by the street name tranq. Xylazine has been found in street drugs, especially heroin and fentanyl. It has been linked to overdoses and . Severe side effects from xylazine include slow heart beat and breathing, low blood pressure, skin sores, and coma. In some states, marijuana is an illegal drug. Medicines include prescription medicines, sedatives, and sleeping pills. Once addiction or dependence happens, you are at greater risk for the problems below. Social and personal problems ?? Craving for the drug and not being able to stop using even though you think you want to stop (psychological addiction) ?? Drug withdrawal symptoms if you stop taking the drug (physical dependence) ?? Loss of friends and family ?? School or work problems ?? Arrest, conviction, and assisted sentence for possession of an illegal substance or for driving under the influence Health problems ?? Stroke, heart attack, heart failure, and kidney failure ?? Accidental injuries to yourself or others while you are under the influence of a drug (in a car or at home) ?? HIV infection. This is a much greater risk if you use IV drugs. ?? Skin infections ?? Other sexually transmitted infections (STIs), such as herpes, chlamydia, and gonorrhea ?? Severe and fatal infection of the heart valves if you use IV drugs ?? Hepatitis B or C ?? Dementia, mood disorders, persistent hallucinations (particularly with hallucinogens) ?? Dental problems from methamphetamine abuse ?? from overdose Home care The following suggestions can help you care for yourself at home: ?? Admit you have a drug problem. Ask for help from your family and close friends. ?? Seek professional help. This could be one-on-one therapy or counseling. There are also outpatient, inpatient, and residential drug treatment programs. ?? Join a self-help group for drug abuse. ?? Stay away from friends who abuse drugs or tempt you to continue abusing drugs. ?? Eat a balanced diet and start a regular exercise program. Follow-up care Follow up with your healthcare provider, or as advised. Contact 1 of the resources below for help: ?? Substance Abuse and Mental Health Services Administration (SAMHSA) at www.samhsa.gov/findtreatment ?? National [place] on Alcoholism and Drug Dependence at www.ncadd.org ?? Narcotics Anonymous at www.na.org Call 911 Call 911 right away if any of these occur: ?? Seizure ?? Hard time breathing or slow, irregular breathing ?? Chest pain ?? Sudden weakness on 1 side of your body or sudden trouble speaking ?? Very drowsy or trouble waking up ?? Fainting or loss of consciousness ?? Fast heart rate ?? Very slow heart rate When to get medical care Call your healthcare provider if any of these occur: ?? Agitation, anxiety, or unable to sleep ?? Unintended weight loss. This means more than 10 to 15 pounds over 3 months. ?? Fever of 100.4??F (38??C) or higher, or as advised by your provider ?? Shortness of breath ?? Cough with colored sputum ?? Redness, swelling, or tenderness at an injection site ?? You think counseling or drug rehabilitation services are needed to prevent additional drug use Last Reviewed Date: 2022 ?? 4775-4225 [employer]. All rights reserved. This information is not intended as a substitute for professional medical care. Always follow your healthcare professional's instructions. * Clinical References AVS - Mary Grace Cox MD - 01/17/2024 8:32 AM CDT Images from the original note were not included. [id number] Understanding Mood Disorders Most people have mood changes every now and then. One day you may feel cranky and the next day you feel great. But with a mood disorder, mood changes aren't so simple. These disorders can cause greatemotional pain. And they can greatly disrupt your life. Mood disorders can be treated. Talk with your healthcare provider or a mental health provider. They can help. What are mood disorders? Mood disorders are illnesses that affect the way you think and feel. The symptoms may be quite severe. In most cases, they won't go away on their own. The most common mood disorders are depression and bipolar disorder. ?? Depression. The main symptom of depression is a feeling of deep sadness. You may also feel hopeless. Or that life isn't worth living. At times you may think about suicide or . Most people have some sadness in their lives. These feelings often lessen with time. But people with severe depression may not get better without treatment. ?? Bipolar disorder. Bipolar disorder is sometimes called manic-depressive illness. That's because it causes extreme mood swings. At times you may feel intensely happy and full of energy. These episodes are often followed by great despair. In some cases, you may have both extremes at once. It?s likely that you'll have phases when your mood shifts back and forth. You may have these mood swings just once in a while. Or they may happen a few times a year. Without treatment, they will likely keep happening for the rest of your life. What causes mood disorders? No one knows just what causes mood disorders. But, they do run in families. Changes in certain chemicals in your brain also may play a role. Major life changes, stress, trauma, certain physical illnesses, and medicines can each result in a mood disorder. These disorders affect both men and women. They also may strike people of every age, race, and income level. Many online and community resources are available for people with mood disorders. Talk with your healthcare provider about counselors, family support services, and support groups in your area. How daily issues affect your health Many things in your daily life impact your health. This can include transportation, money problems,housing, access to food, and child care centre director. If you can?t get to medical appointments, you may not receive the care you need. When money is tight, it may be difficult to pay for medicines. And living farfrom a grocery store can make it hard to buy healthy food. If you have concerns in any of these or other areas, talk with your healthcare team. They may know of local resources to assist you. Or they may have a staff person who can help. Last Reviewed Date: 2021 ?? [id number] [employer]. All rights reserved. This information is not intended as a substitute for professional medical care. Always follow your healthcare professional's instructions. documented in this encounter Plan of Treatment Not on file documented as of this encounter Visit Diagnoses Diagnosis Substance induced mood disorder (HCC)- Primary Drug-induced mood disorder documented in this encounter Administered Medications Inactive Administered Medications - up to 3 most recent administrations Medication Order MAR Action Action Date Dose Rate Site ARIPiprazole (Abilify) tablet 15 mg 15 mg, Oral, DAILY, First dose on Sun01/17/24 at 0900, Until Discontinued $ Given 01/17/2024 8:42 AM CDT 15 mg DULoxetine (Cymbalta) capsule 60 mg 60 mg, Oral, DAILY, First dose on Sun01/17/24 at 0900, Until Discontinued, Capsules can be opened and sprinkled on food/mixed with liquids and should be used within 2 hrs (Do not crush pellets inside capsule) Whole capsules should be swallowed whole and not chewed $ Given 01/17/2024 8:42 AM CDT 60 mg hydrOXYzine HCl (Atarax) tablet 25 mg 25 mg, Oral, 3 TIMES DAILY, First dose on Lara 01/17/24 at 0900, Until Discontinued $ Given 01/17/2024 8:42 AM CDT 25 mg documented in this encounter Active and Recently Administered Medications Times are shown in CDT. Scheduled Medication Order 01/15/2024 01/16/2024 01/17/2024 ARIPiprazole (Abilify) tablet 15 mg 15 mg, Oral, DAILY, First dose on [place]ara 01/17/24 at 0900, Until Discontinued 0842 ($ Given - Prov ider: Nichole Bowers RN) DULoxetine (Cymbalta) capsule 60 mg 60 mg, Oral, DAILY, First dose on Lara 01/17/24 at 0900, Until Discontinued, Capsules can be opened and sprinkled on food/mixed with liquids and should be used within 2 hrs (Do not crush pellets inside capsule) Whole capsules should be swallowed whole and not chewed 0842 ($ Given - Prov ider: Nichole Bowers RN) hydrOXYzine HCl (Atarax) tablet 25 mg 25 mg, Oral, 3 TIMES DAILY, First dose on Lara 01/17/24 at 0900, Until Discontinued 0842 ($ Given - Prov ider: Nichole Bowers RN) documented in this encounter Care Teams Rehab Liaison Relationship Specialty Start Date End Date Unknown, Provider PCP - General 09/17/23 02/02/24 documented as of this encounter
--- OUTSIDE RECORDS SUMMARY | 2024-08-10 03:29 | XMS_ITS | Encounter Summary ---
Author Organization [facility] Health Address [address] [place] [address] Care Team Providers Care [employer] Licensee Name Role Phone Unknown, Provider Primary Care Provider Unavaila ble Encounter Details Date Type Department Care Team (Latest Contact Info) Description 12/24/2023 Travel Social History Tobacco Use Types Packs/Day [...] Recorded Patient Health Questionnaire-2 Score 3 12/23/2023 [facility] [place] [facility] - Occupational Stress [...] money to buy more. Never true 12/24/19 Within the past 12 months, t he [...] place to sleep or slept in a care home (including now)? Yes 12/24/2023 Sex and Gender Information Value Date Recorded Sex Assigned at Not on file Gender Identity Not on file Sexual Orientation Not on file documented as of this encounter Functional Status Functional Status Response Date of Assess ment Is person deaf or have serious hearing difficult y? No 08/08/2023 Is person blind or have serious difficulty seein g? No 08/08/2023 Does person have serious dif ficulty walking/climbing stairs? No 08/08/2023 Does person have difficulty dressing/bathing? No 08/08/2023 Does person have difficulty doing errands alone? No 08/08/2023 Cognitive Status Response Date of Assessm ent Does person have difficulty concentrating/remembering/making decisions? No 08/08/2023 documented as of this encounter Plan of Treatment Not on file documented as of this encounter Visit Diagnoses Not on filedocumented in this encounter Care Teams Real Estate Agency Licensee Relationship Specialty Start Date End Date Unknown, Provider PCP - General 09/17/23 02/02/24 documented as of this encounter
--- OUTSIDE RECORDS SUMMARY | 2024-08-10 03:29 | XMS_ITS | Encounter Summary ---
Author Organization [facility] Address [address] [place] [address] Care Team Providers Care Recruitment Advertising Manager Name Role Phone None, Physician Primary Care Provider Unavailabl e Reason for Visit * Auth/Cert (Routine) Specialty Diagnoses / Procedures Referred By Contac t Referred To Contact Diagnoses Inguinal hernia without obstruction or gangrene, recurrence not specified, unspecified laterality Inguinal hernia without obstruction or gangrene, recurrence not specified, unspecified laterality [K40.90] Procedures NE RPR 1ST INGUN HRNA AGE 5 YRS/> REDUCIBLE REPAIR INGUINAL HERNIA Referral ID Status Reason Start Date Expiration Date Visits Re quested Visits Authorized [id number] 1 1 Encounter Details Date Type Department Care Team (Latest Contact Info) Description 04/13/2023 7:07 AM CDT - 04/13/2023 3:55 PM CDT Hospital Encounter [facility] [address] [place] [address] Natividad Blair MD [address] [place] [phone] Surgery General Discharge Disposition: Home or Self Care Social History Tobacco Use Types Packs/Day Years Used Date Smoking Tobacco: Never Smokeless Tobacco: Never Tobacco Cessation:Counseling Given: Not Answered Alcohol Use Standard Drinks/Week Comments Yes 0 (1 standard drink = 0.6 oz pur e alcohol) social Sex and Gender Information Value Date Recorded Sex Assigned at Not on file Gender Identity Not on file Sexual Orientation Not on file documented as of this encounter Last Filed Vital Signs Vital Sign Reading Time Taken Comments Blood Pressure 104/61 04/13/2023 3:13 PM CDT Pulse 53 04/13/2023 3:13 PM CDT Temperature 36.3 ??C (97.3 ??F) 04/13/2023 10:01 AM C DT Respiratory Rate 15 04/13/2023 3:13 PM CDT Oxygen Saturation 100% 04/13/2023 3:13 PM CDT Inhaled Oxygen Concentration - - Weight 75.3 kg (166 lb) 04/13/2023 8:11 AM CDT Height 182.9 cm (6') 04/13/2023 8:11 AM CDT Body Mass Index 22.51 04/13/2023 8:11 AM CDT documented in this encounter Medications at Time of Discharge Medication Sig Dispensed Refills Start Date End Date acetaminophen (Tylenol) 325 MG tablet Take 2 (two) tablets by mouth every 6 hours as needed for Pain Maximum allowable Acetaminophen amount = 4 Grams (4000 mg) / 24 hours. 30 tablet 04/13/2023 06/13/2023 bictegravir-emtricita bine-tenofovir (Biktarvy) 50-200-25 MG Take 1 (one) tablet by mouth once daily 30 tablet 2 02/27/2023 06/13/2023 bictegravir-emtricita bine-tenofovir (Biktarvy) 50-200-25 MG Take 1 (one) tablet by mouth once daily 30 tablet 8 06/30/2022 06/13/2023 gabapentin (Neurontin) 300 MG capsule Take 1 (one) capsule by mouth 3 times daily 06/30/2022 ibuprofen (Motrin) 600 MG tablet Take 1 (one) tablet by mouth every 6 hours as needed for Pain 30 tablet 04/13/2023 06/13/2023 oxyCODONE, immediate release, (Roxicodone) 5 MG tabletIndications:Non -recurrent unilateral inguinal hernia without obstruction or gangrene Take 1 (one) tablet by mouth every 6 hours as needed for Pain 20 tablet 04/13/2023 06/13/2023 senna-docusate (Senokot-S) 8.6-50 MG tablet Take 1 (one) tablet by mouth once daily 30 tablet 04/13/2023 06/13/2023 sertraline (Zoloft) 50 MG tablet Take 1 (one) tablet by mouth once daily 11/06/2022 06/20/2023 triamcinolone acetonide (Kenalog) 0.1 % ointment Apply to affected area 2 times daily 12/05/2022 06/13/2023 documented as of this encounter Progress Notes * Natividad Blair MD - 04/13/2023 9:55 AM CDT Prescriptions for oxyIR, ibuprofen and tylenol and senna have been ePrescribed to the patient's preferred pharmacy. Preferred Pharmacy [facility] - [address] [facility] [address] [address] [facility] [address] Hours: Not open 24 hours Natividad Blair MD General Surgeon, [facility] Pager [phone] Office/Answering Service [phone] documented in this encounter H&P Notes * Natividad Blair MD - 04/13/2023 8:15 AM CDT This patient? s prior H&P was reviewed, the patient was examined and no change has occurred in the patient's condition since the prior H&P was completed. To OR for open right inguinal hernia repair with mesh Natividad Blair MD Source Note - Natividad Blair MD - 04/04/2023 10:45 AM CDT Images from the original note were not included. Date of Encounter: 04/04/2023 Referring Physician: Physician None Chief Complaint: I am seeing Phil Chase JrKaveh in consultation for a right inguinal hernia History of Present Illness: Phil Chase Jr. is a 27 year old male with a right inguinal hernia. Phil has noticed painfulbulge for the past 7 years. Getting bigger, more painful. No associated nausea or emesis. Constipation for the past few weeks. 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 arrstngvuuc-xoyycaxcutzva-xmqmrqfig (Biktarvy) 50-200-25 MG Take 1 (one) tablet by mouth once daily 30 tablet 2 ??? szgzcqmtijo-gtpjzrapvmypu-vthnrnpmj (Biktarvy) 50-200-25 MG Take 1 (one) tablet by mouth once daily 30 tablet 8 ??? gabapentin (Neurontin) 300 MG capsule Take 1 (one) capsule by mouth 3 times daily (Patient not taking: Reported on 04/04/2023) ??? sertraline (Zoloft) 50 MG tablet Take 1 (one) tablet by mouth once daily ??? triamcinolone acetonide (Kenalog) 0.1 % ointment Apply to affected area 2 times daily No current facility-administered medications for this visit. Facility-Administered Medications Ordered in Other Visits Medication Dose Route Frequency Provider Last Rate Last Admin ??? acetaminophen (Tylenol) tablet 1,000 mg 1,000 mg Oral Once Mee Blake, DO ??? celecoxib (CeleBREX) capsule 100 mg 100 mg Oral Once ReneehornMee Elys, DO Past Medical History: Diagnosis Date ??? Human immunodeficiency virus (HIV) disease ([facility]) Past Surgical History: Procedure Laterality Date ??? Lumbar Laminectomy Social History Socioeconomic History ??? Marital status: Single Spouse name: Not on file ??? Number of children: Not on file ??? Years of education: Not on file ??? Highest education level: Not on file Occupational History ??? Not on file Tobacco Use ??? Smoking status: Never ??? Smokeless tobacco: Never Vaping Use ??? Vaping Use: Every day Substance and Sexual Activity ??? Alcohol use: Not Currently Comment: social ??? Drug use: Not Currently Types: Marijuana ??? Sexual activity: Not on file Other Topics Concern ??? Not on file Social History Narrative ??? Not on file Social Determinants of Health Financial Resource Strain: Not on file Food Insecurity: Not on file Transportation Needs: Not on file Stress: Not on file Housing Stability: Not on file No family history on file. - Family history is not pertinent to this visit Physical Examination: BP 108/64 Pulse 48 Resp 18 Ht 1.829 m (6' 0.01 ) Wt 75.3 kg (166 lb) BMI 22.51 kg/m?? Body mass index is 22.51 kg/m??. General: Well developed, well nourished, alert and oriented in NAD Abdomen: Soft, non-tender, non-distended, no masses palpable Groin: Quite large right inguinal hernia noted, not reducible No hernia with straining or cough noted on the other side. Testicles normal bilaterally. Imaging: The following studies have been independently reviewed and interpreted by myself at today's visit: CT ABDOMEN PELVIS WO CONTRAST 01/05/2023 IMPRESSION: ?? 1.Large right inguinal hernia containing cecum and distal ileal loops with a 5 cm fascial defect with enlargement of the right hemiscrotum and mass effect on the testes. No focal obstruction or secondary signs of strangulation. ?? Lab Review: Recent Labs Component Name 01/12/23 1340 WBC 3.9 HGB 14.0 HCT 45.5 PLTCOUNT 325 No results for input(s): SODIUM, POTASSIUM, CHLORIDE, CO2, BUN, CREATININE, GLUCOSE, CALCIUM, ALBUMIN, ALKPHOS, ALT, AST, TBIL, TPROT, EGFR in the last 37922 hours. Assessment / Plan: Phil Chase Jr. is a 27 year old male with a large right inguinal hernia We reviewed the relevant anatomy and physiology of hernia disease. I discussed the options for treatment, including laparoscopic and open approaches to inguinal hernia repair with an without mesh, aswell as watchful waiting.Given the disease progression with worsening symptoms, elective major surgery was discussed. We discussed the risks of inguinal hernia repair including bleeding, infection, damage to spermatic cord, chronic groin pain from mesh or scar tissue, urinary retention, hernia recurrence as well as risks of general anesthesia. The patient understands these risks and wishes to proceed with open right inguinal hernia repair with mesh , He is aware that he will likely have post opdrain to reduce seroma -CPT 04151 open incarcerated inguinal hernia repair -Surgery scheduled for Apr 13 -The following pre op testing was ordered: none -Excellent functional status (>4 METS without any symptoms), no need for any pre operative cardiac work up Natividad Blair MD 04/04/2023 11:02 AM Natividad Blari MD General Surgeon, [facility] Pager [phone] Office/Answering Service [phone] documented in this encounter OR Notes * Operative - Natividad Blair MD - 04/13/2023 9:09 AM CDT Operative Note [facility] Natividad Blair MD Procedure date: 04/13/2023 Preoperative Diagnosis: right inguinal hernia Procedure: Open right inguinal hernia repair Postoperative Diagnosis: Incarcerated right inguinal hernia Surgeon: Natividad Blair MD Contractor Field Hauling: Mathew ARTHUR Anesthesia: General endotracheal anesthesia Indications for Procedure: Phil Chase Jr. is a 27 year old male who developed a large symptomatic inguinal hernia. Repair was indicated, and because of the patients age and nature of the hernia a open repair was elected. Operative Findings: A large sliding direct hernia, repaired with mesh Description of procedure: The patient was taken to the operating room placed in a supine position with arms tucked to the side after obtaining adequate anesthesia, the patients abdomen was prepped and draped in standard fashion. A time out was completed, verifying correct patient, procedure, site, positioning, and implants prior to beginning the procedure. An incision in the right groin was made, the skin, subcutaneous tissue and external oblique were opened with good hemostasis. A large, sliding direct inguinal hernia was encountered which was reduced. After reduction, the sac was dissected away from the cord. The vas deferens and testicular vesselswere identified and protected. A 3 inch x 5 inch piece of flat prolene mesh was placed over the hernia defect. It was secure with interrupted prolene sutures. The external oblique was closed with a running 3-0 vicryl. I placed a 19 Fr round MAURO coursing into the scrotum to reduce seroma given the very large hernia sac and extent of dissection. Manuel's fascia was closed with a running 3-0 Vicryl, skin was closed with 4-0 monocryl and dermabond. Both testicle were palpated in the scrotum. The patient tolerated the procedure well and was taken to the postanesthesia care unit in stable condition. All instrument, needle and sponge counts were correct. I was present for all portions of the procedure. EBL: * No values recorded between 04/13/2023 9:09 AM and 04/13/2023 9:51 AM * Specimen: * No specimens in log * Implant: Implant Name Type Inv. Item Serial No. Recruiting Operations Consultant Lot No. LRB No. Used Action Mesh Srg [id number] Lg Pore Knit Mfl Smth Rnd Mesh Mesh Srg 6X3In Lg Pore Knit Mfl Smth Rnd [employer] [id number] 1 Implanted Natividad Blair MD General Surgeon, [facility] Pager [phone] Office/Answering Service [phone] documented in this encounter Plan of Treatment Not on file documented as of this encounter Procedures Procedure Name Priority Date/Time Associated Diagnosis Comments CARDIAC RHYTHM STRIP ORDER 04/17/2023 5:55 PM CDT NE RPR 1ST INGUN HRNA AGE 3 YRS/> REDUCIBLE 04/13/2023 8:29 AM CDT Inguinal hernia without obstruction or gangrene, recurrence not specified, unspecified laterality Case Notes 2ND CASE SUPINE 60 MIN Special Needs NEEDS BDR documented in this encounter Results * CARDIAC RHYTHM STRIP ORDER (04/17/2023 5:55 PM CDT) Narrative 04/17/2023 5:55 PM CDT Ordered by an unspecified provider. Scanned Document CARDIAC SERVICES ORD ERABLES documented in this encounter Visit Diagnoses Diagnosis Inguinal hernia without obstruction or gangrene- Primary Inguinal hernia without mention of obstruction or gangrene, unilateral or unspecified, (not specified as recurrent) Non-recurrent unilateral inguinal hernia without obstruction or gangrene documented in this encounter Admitting Diagnoses Diagnosis Inguinal hernia without obstruction or gangrene Inguinal hernia without mention of obstruction or gangrene, unilateral or unspecified, (not specified as recurrent) documented in this encounter Administered Medications Inactive Administered Medications - up to 3 most recent administrations Medication Order MAR Action Action Date Dose Rate Site acetaminophen (Tylenol) tablet 1,000 mg 1,000 mg, Oral, ONCE, 1 dose, On Sun04/13/23 at 0845, Patient preference for lesser PRN pain meds may be honored when the patient requests a less strong medication, a lower dose, or a less intrusive route of administration when the lesser drug, dose and route have been ordered for the patient. This patient request must be documented in the MAR., Pre-op $ Given 04/13/2023 8:30 AM CDT 1,000 mg fentaNYL (PF) (Sublimaze) injection 25 mcg 25 mcg, Intravenous, EVERY 10 MIN PRN, Mild Pain, 4 doses, Starting on Sun04/13/23 at 0957, Until Sun04/13/23 at 1701, Maximum total of 4 doses. If patient reaches max total dose, please consult anesthesiologist prior to further administration of pain meds. Hold pain meds if there are signs of hypoventilation. Patient preference for lesser PRN pain meds may be honored when the patient requests a less strong medication, a lower dose, or a less intrusive route of administration when the lesser drug, dose and route have been ordered for the patient. This patient request must be documented in the MAR., PACU fentaNYL (PF) (Sublimaze) injection 50 mcg 50 mcg, Intravenous, EVERY 10 MIN PRN, Moderate Pain, 4 doses, Starting on Sun04/13/23 at 0957, Until Sun04/13/23 at 1701, Maximum total of 4 doses. If patient reaches max total dose, please consult anesthesiologist prior to further administration of pain meds. Hold pain meds if there are signs of hypoventilation. Patient preference for lesser PRN pain meds may be honored when the patient requests a less strong medication, a lower dose, or a less intrusive route of administration when the lesser drug, dose and route have been ordered for the patient. This patient request must be documented in the MAR., PACU $ Given 04/13/2023 10:40 AM CDT 50 mcg $ Given 04/13/2023 10:30 AM CDT 50 mcg $ Given 04/13/2023 10:20 AM CDT 50 mcg HYDROcodone-acetaminophen (Gadsden) 5-325 MG tablet 1 tablet 1 tablet, Oral, ONCE PRN, Mild Pain, 1 dose, Starting on Sun04/13/23 at 0957, Until Sun04/13/23 at 170, Use if no IV access or as directed by Anesthesia provider. Patient preference for lesser PRN pain meds may be honored when the patient requests a less strong medication, a lower dose, or a less intrusive route of administration when the lesser drug, dose and route have been ordered for the patient. This patient request must be documented in the MAR., PACU HYDROmorphone (Dilaudid) injection 0.5 mg 0.5 mg, Intravenous, EVERY 10 MIN PRN, Severe Pain, 4 doses, Starting on Sun04/13/23 at 0957, Until Sun04/13/23 at 170, Maximum total of 4 doses If patient reaches max total dose, please consult anesthesiologist prior to further administration of pain meds. Hold pain meds if there are signs of hypoventilation. Patient preference for lesser PRN pain meds may be honored when the patient requests a less strong medication, a lower dose, or a less intrusive route of administration when the lesser drug, dose and route have been ordered for the patient. This patient request must be documented in the MAR., PACU $ Given 04/13/2023 10:26 AM CDT 0.5 mg lactated ringers infusion at 20 mL/hr, Intravenous, PRE-OP CONTINUOUS, Starting on Sun04/13/23 at 0815, Until Sun04/13/23 at 170, Pre-op $ New Bag/Syringe 04/13/2023 10:37 AM CDT 20 mL/hr Restarted 04/13/2023 8:54 AM CDT $ New Bag/Syringe 04/13/2023 8:30 AM CDT 20 mL/ hr lidocaine PF (Xylocaine MPF) 1 % injection 0.2 mL 0.2 mL, Infiltration, PRE-OP MULTIPLE, 3 doses, Starting on Sun04/13/23 at 0801, Until Sun04/13/23 at 170, May be used (0.2 ml locally to anesthetize prior to insertion)., Pre-op naloxone (Narcan) injection 0.04 mg 0.04 mg, Intravenous, POST-OP MULTIPLE, Starting on Sun04/13/23 at 0957, Until Sun04/13/23 at 170, If respiration rate is less than 7 per minute administer IV every 1 minute until respirations are greater than 12 per minute. Notify anesthesia immediately., PACU ondansetron (Zofran) injection 4 mg 4 mg, Intravenous, ONCE PRN, Nausea/Vomiting, 1 dose, Starting on Sun04/13/23 at 0957, Until Sun04/13/23 at 1701, Second choice, use if first choice was ineffective., PACU oxyCODONE (immediate release) (Roxicodone) tablet 5 mg 5 mg, Oral, POST-OP ONCE, 1 dose, On Sun04/13/23 at 1130, Patient preference for lesser PRN pain meds may be honored when the patient requests a less strong medication, a lower dose, or a less intrusive route of administration when the lesser drug, dose and route have been ordered for the patient. This patient request must be documented in the MAR. $ Given 04/13/2023 11:18 AM CDT 5 mg oxyCODONE (immediate release) (Roxicodone) tablet 5 mg 5 mg, Oral, POST-OP ONCE, 1 dose, On Sun04/13/23 at 1445, Patient preference for lesser PRN pain meds may be honored when the patient requests a less strong medication, a lower dose, or a less intrusive route of administration when the lesser drug, dose and route have been ordered for the patient. This patient request must be documented in the MAR., Post-op $ Given 04/13/2023 2:40 PM CDT 5 mg documented in this encounter Active and Recently Administered Medications Times are shown in CDT. Scheduled Medication Order 04/11/2023 04/12/2023 04/13/2023 acetaminophen (Tylenol) tablet 1,000 mg (COMPLETED) 1,000 mg, Oral, ONCE, 1 dose, On Sun04/13/23 at 0845, Patient preference for lesser PRN pain meds may be honored when the patient requests a less strong medication, a lower dose, or a less intrusive route of administration when the lesser drug, dose and route have been ordered for the patient. This patient request must be documented in the MAR., Pre-op 0830 ($ Given - Prov ider: Lida Green RN) insulin regular human (HumuLIN R; NovoLIN R) 100 UNIT/ML injection 0-6 Units 0-6 Units, Intravenous, ONCE, 1 dose, On Sun04/13/23 at 1000, POC Glucose Regular Insulin Dose 0 - 180 mg/dL = 0 units 181 - 220 mg/dL = 3 units 221 - 260 mg/dL = 4 units 261 - 300 mg/dL = 5 units Above 300 mg/dL = 6 units . WASTE DISPOSAL INSTRUCTIONS: Black Bin Disposal required., PACU 1000 (Due) lidocaine PF (Xylocaine MPF) 1 % injection 0.2 mL 0.2 mL, Infiltration, PRE-OP MULTIPLE, 3 doses, Starting on Sun04/13/23 at 0801, Until Sun04/13/23 at 1701, May be used (0.2 ml locally to anesthetize prior to insertion)., Pre-op naloxone (Narcan) injection 0.04 mg 0.04 mg, Intravenous, POST-OP MULTIPLE, Starting on Sun04/13/23 at 0957, Until Sun04/13/23 at 1701, If respiration rate is less than 7 per minute administer IV every 1 minute until respirations are greater than 12 per minute. Notify anesthesia immediately., PACU oxyCODONE (immediate release) (Roxicodone) tablet 5 mg (COMPLETED) 5 mg, Oral, POST-OP ONCE, 1 dose, On Sun04/13/23 at 1130, Patient preference for lesser PRN pain meds may be honored when the patient requests a less strong medication, a lower dose, or a less intrusive route of administration when the lesser drug, dose and route have been ordered for the patient. This patient request must be documented in the MAR. 1118 ($ Given - Prov ider: Rosa Isela Forde RN) oxyCODONE (immediate release) (Roxicodone) tablet 5 mg (COMPLETED) 5 mg, Oral, POST-OP ONCE, 1 dose, On Sun04/13/23 at 1445, Patient preference for lesser PRN pain meds may be honored when the patient requests a less strong medication, a lower dose, or a less intrusive route of administration when the lesser drug, dose and route have been ordered for the patient. This patient request must be documented in the MAR., Post-op 1440 ($ Given - Prov ider: Lida Green RN) Continuous Medication Order 04/11/2023 04/12/2023 04/13/2023 lactated ringers infusion at 20 mL/hr, Intravenous, PRE-OP CONTINUOUS, Starting on Sun04/13/23 at 0815, Until Sun04/13/23 at 1701, Pre-op 0830 ($ New Bag/Syri nge - Provider: Lida Green RN)0853 (Paused - Provider: Natividad Collier APRN-HUB ASSOCIATE - Comment: Switch to gravity)0854 (Restarted - Provider: Natividad Collier APRN-HUB ASSOCIATE)1003 (Anesthesia Volume Adjustment - Provider: ERIK MancusoHUB ASSOCIATE)1037 ($ New Bag/Syringe - Provider: Gosia Marvin RN) PRN Medication Order 04/11/2023 04/12/2023 04/13/2023 0.9% nacl irrigation solution (COMPLETED) CONTINUOUS PRN, Starting on Sun04/13/23 at 0915, Until Sun04/13/23 at 0955, Intra-op 0915 ($ New Bag/Syri nge - Provider: Natividad Blair MD - Comment: prn on field) BUPivacaine PF (Marcaine PF) 0.25 % injection (CANCELED) PRN, Starting on Sun04/13/23 at 0948, Until Sun04/13/23 at 0955, Intra-op 0948 ($ Given - Prov ider: Natividad Blair MD) fentaNYL (PF) (Sublimaze) injection 25 mcg 25 mcg, Intravenous, EVERY 10 MIN PRN, Mild Pain, 4 doses, Starting on Sun04/13/23 at 0957, Until Sun04/13/23 at 1701, Maximum total of 4 doses. If patient reaches max total dose, please consult anesthesiologist prior to further administration of pain meds. Hold pain meds if there are signs of hypoventilation. Patient preference for lesser PRN pain meds may be honored when the patient requests a less strong medication, a lower dose, or a less intrusive route of administration when the lesser drug, dose and route have been ordered for the patient. This patient request must be documented in the MAR., PACU fentaNYL (PF) (Sublimaze) injection 50 mcg 50 mcg, Intravenous, EVERY 10 MIN PRN, Moderate Pain, 4 doses, Starting on Sun04/13/23 at 0957, Until Sun04/13/23 at 1701, Maximum total of 4 doses. If patient reaches max total dose, please consult anesthesiologist prior to further administration of pain meds. Hold pain meds if there are signs of hypoventilation. Patient preference for lesser PRN pain meds may be honored when the patient requests a less strong medication, a lower dose, or a less intrusive route of administration when the lesser drug, dose and route have been ordered for the patient. This patient request must be documented in the MAR., PACU 1020 ($ Given - Prov ider: Gosia Marvin RN)1030 ($ Given - Provider: Gosia Marvin RN)1040 ($ Given - Provider: Gosia Marvin RN) HYDROcodone-acetaminophen ([place]den) 5-325 MG tablet 1 tablet 1 tablet, Oral, ONCE PRN, Mild Pain, 1 dose, Starting on Sun04/13/23 at 0957, Until Sun04/13/23 at 1701, Use if no IV access or as directed by Anesthesia provider. Patient preference for lesser PRN pain meds may be honored when the patient requests a less strong medication, a lower dose, or a less intrusive route of administration when the lesser drug, dose and route have been ordered for the patient. This patient request must be documented in the MAR., PACU HYDROmorphone (Dilaudid) injection 0.5 mg 0.5 mg, Intravenous, EVERY 10 MIN PRN, Severe Pain, 4 doses, Starting on Sun04/13/23 at 0957, Until Sun04/13/23 at 1701, Maximum total of 4 doses If patient reaches max total dose, please consult anesthesiologist prior to further administration of pain meds. Hold pain meds if there are signs of hypoventilation. Patient preference for lesser PRN pain meds may be honored when the patient requests a less strong medication, a lower dose, or a less intrusive route of administration when the lesser drug, dose and route have been ordered for the patient. This patient request must be documented in the MAR., PACU 1026 ($ Given - Prov ider: Gosia Marvin RN) ondansetron (Zofran) injection 4 mg 4 mg, Intravenous, ONCE PRN, Nausea/Vomiting, 1 dose, Starting on Sun04/13/23 at 0957, Until Sun04/13/23 at 1701, Second choice, use if first choice was ineffective., PACU documented in this encounter Care Teams Recruitment Advertising Manager Relationship Specialty Start Date End Date None, Physician [id number] [place] [address] PCP - General 12/19/22 09/16/23 documented as of this encounter
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
--- OUTSIDE RECORDS SUMMARY | 2024-08-10 03:29 | XMS_ITS | Encounter Summary ---
Author Organization [facility] Health Address [address] [facility] [place] [address] Care Team Providers Care Fiberglass Technician Name Role Phone Laurie Mady Primary Care Provider Un available Reason for Visit * Reason Comments Substance Abuse Pt BIBems, pt states I smoked some meth about an hour ago from someone I've never gotten it from before and I think something was wrong with it because I just dont feel right, my friend gave me some narcan because I passed out right after I smoked. Pt is complaining that everything is moving slowly and feels super weak. Pt was ambulatory to triage and A&Ox4 Encounter Details Date Type Department Care Team (Late st Contact Info) Description 03/28/2024 3:18 PM CDT - 03/28/2024 6:36 PM CDT Emergency [facility] EMERGENCY DEPARTMENT [address] [place] [id number] Discharge Disposition: Left Against Medical Advice/Discontinued Care Social History Tobacco Use Types Packs/Day [...] Recorded Patient Health Questionnaire-2 Score 6 02/03/2024 [facility] [place] [facility] - Occupational Stress [...] place to sleep or slept in a long term (including now)? Yes 02/16/2024 Sex and Gender Information Value Date Recorded Sex Assigned at Not on file Gender Identity Not on file Sexual Orientation Not on file documented as of this encounter Last Filed Vital Signs Vital Sign Reading Time Taken Comments Blood Pressure 145/69 03/28/2024 10:06 AM CDT Pulse 78 03/28/2024 10:06 AM CDT Temperature 36.7 ??C (98 ??F) 03/28/2024 10:06 AM CDT Respiratory Rate 16 03/28/2024 10:06 AM CDT Oxygen Saturation 98% 03/28/2024 10:06 AM CDT Inhaled Oxygen Concentration - - Weight 81.6 kg (180 lb) 03/28/2024 4:16 AM CDT Height 182.9 cm (6') 03/28/2024 4:16 AM CDT Body Mass Index 24.41 03/28/2024 4:16 AM CDT documented in this encounter Functional [...] No 02/16/2024 documented as of this encounter Medications at Time of Discharge Medication Sig Dispensed Refills Start Date End Date ARIPiprazole (Abilify) 10 MG tablet TAKE ONE TABLET BY MOUTH ONCE DAILY 30 tablet 02/21/2024 02/20/2025 bictegravir-emtricitabine -tenofovir (Biktarvy) 50-200-25 MGIndications:Human Immunodeficiency Virus Disease Take 1 (one) tablet by mouth once daily Reasons: HIV Disease 30 tablet 08/08/2023 busPIRone (Buspar) 10 MG tablet Take 1 [...] 90 MG DAILY 30 capsule 02/21/2024 02/20/2025 hydrOXYzine HCl (Atarax) 50 MG tablet Take [...] 10/26/2023 05/05/2024 documented as of this encounter ED Notes * Romy Chambers - 03/28/2024 3:17 PM CDT AMA form uploaded to chart att. * Roosevelt Chanel - 03/28/2024 2:00 PM CDT Call x 3 * Roosevelt Chanel - 03/28/2024 1:09 PM CDT Call x2 * Roosevelt Chanel - 03/28/2024 12:56 PM CDT Call x 1 * Anjel Randhawa RN - 03/28/2024 12:00 PM CDT Pt left ED when informed security would search him for drugs and paraphernalia * Anjel Randhawa RN - 03/28/2024 11:30 AM CDT Pt caught buying fentanyl in [place] from another patient. IV removed and charge nurse notified * Roosevelt Chanel - 03/28/2024 7:56 AM CDT Pt waiting in WR, Conscious & Breathing, States I'm going to become real bitchy if I dont get any snacks * Shelly Etienne - 03/28/2024 5:46 AM CDT Per hall supervisor, patient is allowed to have juice * Shelly Etienne - 03/28/2024 5:30 AM CDT Patient present in WR. No additional concerns noted at this time. * Madison Treviño Graduate Nurse - 03/28/2024 4:15 AM CDT Pt BIBems, pt states I smoked some meth about an hour ago from someone I've never gotten it from before and I think something was wrong with it because I just dont feel right, my friend gave me somenarcan because I passed out right after I smoked. Pt is complaining that everything is moving slowly and feels super weak. Pt was ambulatory to triage and A&Ox4 Past Medical History: Diagnosis Date Human immunodeficiency virus (HIV) disease (HCC) Past Surgical History: Procedure Laterality Date HERNIA REPAIR, INGUINAL Right 04/13/2023 Right; REPAIR RIGHT INGUINAL HERNIA WITH MESH (OPEN ) Lumbar Laminectomy documented in this encounter Plan of Treatment Not on file documented as of this encounter Procedures Procedure Name Priority Date/Time Associated Diagnosis Comments CBC W AUTO DIFFERENTIAL STAT 03/28/2024 5:07 AM CDT COMPREHENSIVE METABOLIC PANEL STAT 03/28/2024 5:07 AM CDT CK BLOOD STAT 03/28/2024 5:07 AM CDT documented in this encounter Results * (ABNORMAL) CK BLOOD (03/28/2024 5:07 AM CDT) Pathologist [facility] CK Total 1,090(H) 30 - 200 U/L 03/28/2024 5:45 AM T [facility] Blood BLOOD SPECIMEN / Unknown Venipuncture / Unknown 03/28/2024 5:07 AM CDT 03/28/2024 5:20 AM CDT Michelle Pacheco MD LAB - CHEMISTRY AMANDA MELENDREZ [facility] Organization Address City/State/ZIP Co de Phone Number [facility] [address] [place] [id number], [facility] [phone] * (ABNORMAL) COMPREHENSIVE METABOLIC PANEL (03/28/2024 5:07 AM CDT) Pathologist [facility] BUN 35(H) 7 - 26 mg/dL 03/28/2024 5:45 AM T [facility] Creatinine 2.15(H) 0.71 - 1.16 mg/dL 03/28/2024 5:45 AM T [facility] Sodium 141 136 - 145 mmol/L 03/28/2024 5:45 AM T [facility] Potassium 4.7(H) 3.5 - 4.5 mmol/L 03/28/2024 5:45 AM T [facility] Chloride 108(H) 98 - 107 mmol/L 03/28/2024 5:45 AM T [facility] CO2 20(L) 22 - 29 mmol/L 03/28/2024 5:45 AM [facility] Glucose 99 70 - 115 mg/dL 03/28/2024 5:45 AM [facility] Calcium 9.6 8.4 - 10.2 mg/dL 03/28/2024 5:45 AM [facility] Protein Total 10.0(H) 6.0 - 8.3 g/dL 03/28/2024 5:45 AM [facility] Albumin 4.8 3.4 - 5.0 g/dL 03/28/2024 5:45 AM [facility] Bilirubin Total 0.6 0.2 - 1.2 mg/dL 03/28/2024 5:45 AM [facility] Alkaline Phosphatase 83 40 - 150 U/L 03/28/2024 5:45 AM [facility] ALT 50 5 - 55 U/L 03/28/2024 5:45 AM [facility] AST 56(H) 5 - 34 U/L 03/28/2024 5:45 AM [facility] Anion Gap 13 6 - 16 03/28/2024 5:45 AM [facility] BUN/Creatinine Ratio 16 7 - 23 03/28/2024 5:45 AM [facility] Osmolality Calculated 300(H) 275 - 295 mOsm/kg 03/28/2024 5:45 AM [facility] Albumin/Globulin Ratio 0.9(L) 1.1 - 2.3 03/28/2024 5:45 AM [facility] eGFR by CKD-EPI 41(L) >=90 mL/min/1.7 3 m2 03/28/2024 5:45 AM [facility] Blood BLOOD SPECIMEN / Unknown Venipuncture / Unknown 03/28/2024 5:07 AM CDT 03/28/2024 5:20 AM T Michelle Pacheco MD LAB - CHEMISTRY AMANDA MELENDREZ [facility] Organization Address City/State/ZIP Co de Phone Number [address] [address], [facility] [phone] * (ABNORMAL) CBC W AUTO DIFFERENTIAL (03/28/2024 5:07 AM CDT) WBC 6.7 4.0 - 10.7 x10E9/L 03/28/2024 5:26 AM [facility] RBC Count 5.87(H) 4.30 - 5.80 x10E12/L 03/28/2024 5:26 AM [facility] Hemoglobin 15.6 13.3 - 17.5 g/dL 03/28/2024 5:26 AM [facility] Hematocrit 47.9 38.7 - 51.1 % 03/28/2024 5:26 AM [facility] MCV 81.6 80.0 - 98.0 fL 03/28/2024 5:26 AM [facility] MCH 26.6(L) 26.7 - 33.6 pg 03/28/2024 5:26 AM [facility] MCHC 32.6 31.7 - 36.3 g/dL 03/28/2024 5:26 AM [facility] RDW-CV 15.9(H) 11.3 - 14.8 % 03/28/2024 5:26 AM [facility] Platelet Count 344 150 - 420 x10E9/L 03/28/2024 5:26 AM [facility] MPV 9.5 7.8 - 11.4 fL 03/28/2024 5:26 AM [facility] Neutrophil % 63.6 41.0 - 74.0 % 03/28/2024 5:26 AM [facility] Lymphocyte % 17.9 17.0 - 47.0 % 03/28/2024 5:26 AM [facility] Monocyte % 15.3(H) 3.0 - 11.0 % 03/28/2024 5:26 AM [facility] Eosinophil % 2.4 0.0 - 7.0 % 03/28/2024 5:26 AM [facility] Basophil % 0.5 0.0 - 1.6 % 03/28/2024 5:26 AM [facility] Immature Granulocytes % 0.3 0.0 - 1.0 % 03/28/2024 5:26 AM [facility] Neutrophil Absolute 4.23 1.60 - 7.50 x10E9/L 03/28/2024 5:26 AM CDT [facility] Lymphocyte Absolute 1.19 1.00 - 4.40 x10E9/L 03/28/2024 5:26 AM CDT [facility] Monocyte Absolute 1.02(H) 0.15 - 1.00 x10E9/L 03/28/2024 5:26 AM CDT [facility] Eosinophil Absolute 0.16 0.00 - 0.60 x10E9/L 03/28/2024 5:26 AM CDT [facility] Basophil Absolute 0.03 0.00 - 0.13 x10E9/L 03/28/2024 5:26 AM T [facility] Blood BLOOD SPECIMEN / Unknown Venipuncture / Unknown 03/28/2024 5:07 AM CDT 03/28/2024 5:20 AM CDT Michelle Pacheco MD LAB - HEMATOLOGY ORD ERABLES [address] [address], [facility] [phone] documented in this encounter Visit Diagnoses Not on filedocumented in this encounter Administered Medications Inactive Administered Medications - up to 3 most recent administrations Medication Order MAR Action Action Date Dose Rate Site 0.9% NaCl IV bolus 1,000 mL, at 1,935.48 mL/hr, Administer over 31 Minutes, ONCE, 1 dose, On Sun03/28/24 at 0515 $ New Bag/Syringe 03/28/2024 5:07 AM CDT 1,000 mL 1935.48 mL/hr documented in this encounter Active and Recently Administered Medications Times are shown in CDT. Scheduled Medication Order 03/26/2024 03/27/2024 03/28/2024 0.9% NaCl IV bolus (COMPLETED) 1,000 mL, at 1,935.48 mL/hr, Administer over 31 Minutes, ONCE, 1 dose, On Sun03/28/24 at 0515 0507 ($ New Bag/Syri nge - Provider: Munira Garza RN)[id number] (Stopped - Provider: Anjel Randhawa RN) lactated ringers IV bolus 1,000 mL, at 983.61 mL/hr, Administer over 61 Minutes, ONCE, 1 dose, On Sun03/28/24 at 1045 1045 (Due) documented in this encounter Care Teams Fiberglass Technician Relationship Specialty Start Date End Date Mady Sullivan PCP - General 02/03/24 documented as of this encounter
--- OUTSIDE RECORDS SUMMARY | 2024-08-10 03:29 | XMS_ITS | Encounter Summary ---
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 11:33 AM CST Phil Chase . [id number] [facility] History Chief Complaint Patient presents with ??? SUICIDAL Received the patient from mental health clinic for suicidal ideation with out plan. [facility] is a 27-year-old male with a history of HIV, substance abuse, presenting with depression and suicidal ideation. Patient reports feeling depressed and suicidal, no plan, related to it being the holidays and wanting to stop using meth because it has been affecting his life and his family relationships. Patient last used meth last night, feels somewhat shaky right now. On arrival to the ER, vitals within normal limits. I reviewed the patient's past medical record, specifically: H&P from recent hospitalization to inpatient psych Patient reports compliance with his HIV medication. Past Medical History: Diagnosis Date ??? Human immunodeficiency virus (HIV) disease (CMS/HCC) Past Surgical History: Procedure Laterality Date ??? HERNIA REPAIR, INGUINAL Right 04/13/2023 Right; REPAIR RIGHT INGUINAL HERNIA WITH MESH (OPEN ) ??? Lumbar Laminectomy Review of Systems Refer to HPI for pertinent positive and negative ROS components, unless otherwise noted here. ROS Physical Exam BP 140/90 Pulse 98 Temp 98.4 ??F (36.9 ??C) (Oral) Resp 18 SpO2 98% Physical Exam Vitals and nursing note reviewed. Constitutional: General: He is not in acute distress. Appearance: Normal appearance. HENT: Head: Normocephalic and atraumatic. Right Ear: External ear normal. Left Ear: External ear normal. Nose: Nose normal. Mouth/Throat: Mouth: Mucous membranes are moist. Eyes: Extraocular Movements: Extraocular movements intact. Conjunctiva/sclera: Conjunctivae normal. Cardiovascular: Rate and Rhythm: Normal rate. Pulmonary: Effort: Pulmonary effort is normal. No respiratory distress. Breath sounds: No wheezing. Abdominal: General: There is no distension. Palpations: Abdomen is soft. Musculoskeletal: General: No swelling or deformity. Normal range of motion. Cervical back: Normal range of motion. Skin: General: Skin is warm and dry. Findings: No rash. Neurological: General: No focal deficit present. Mental Status: He is alert and oriented to person, place, and time. Mental status is at baseline. Psychiatric: Comments: calm, cooperative Medications Current Outpatient Medications Medication Sig Dispense Refill ??? ARIPiprazole (Abilify) 15 MG tablet Take 1 (one) tablet by mouth once daily Reasons: Manic-Depression 30 tablet 1 ??? dzskxbeydlf-neyxurscyggxv-khbwawooa (Biktarvy) 50-200-25 MG Take 1 (one) tablet by mouth once daily ??? sertraline (Zoloft) 100 MG tablet Take 1 (one) tablet by mouth once daily Reasons: Lowered Mood30 tablet 1 Procedures Procedures No results found for this visit on 06/21/23. No orders to display Pulse Oximetry (interpreted by me): Saturation: (%) 98 Oxygen Delivery: Room air Interpretation: No hypoxia at this time. Rhythm strip (interpreted by me): Normal sinus rhythm, no arrhythmia noted. Ventricular rate (bpm): 98 Assessment / Plan / MDM Patient is a 27-year-old male with a history of HIV, substance abuse, presenting with depression and suicidal ideation. Differential diagnosis (includes but not limited to): depression, substance induced mood disorder, bipolar Social determinants of health: - no primary care physician, limiting prompt/reliable outpatient follow up Diagnostic considerations: I evaluated the patient and determined that the patient is medically clear for psychiatric evaluation. Patient evaluated by Central Intake, who feel they are appropriate for outpatient psychiatric management and will provide outpatient referrals. Patient stable for discharge at this time. ED Course: ED Course as of 06/21/231712 Lara Jun 21, 2023 1418 Patient evaluated by Central Intake, who feel they are appropriate for outpatient psychiatric management and will provide outpatient referrals. Patient stable for discharge at this time. [AV] ED Course User Index [AV] Sindy Norton MD Clinical Impressions as of 06/21/231712 Suicidal ideation Substance use Of note, this document was completed using dictation software. Please excuse any typographical errors. Orders Placed This Encounter ??? IP CONSULT TO SPECIAL ASSETS OFFICER ING SECOND HAND * Aimee Dunham RN - 06/21/2023 11:17 AM CST Patient dressed in blue paper scrubs. Security called to secure belongings ING SECOND HAND * Natividad Guaman, VICTOR MANUEL - 06/21/2023 11:02 AM CST Bed: 27 Expected date: Expected time: Means of arrival: Comments: 4017--psych eval ING SECOND HAND documented in this encounter Plan of Treatment Not on file documented as of this encounter Visit Diagnoses Diagnosis Suicidal ideation Substance use documented in this encounter Care Teams Mining Helper Relationship Specialty Start Date End Date None, Physician [address] [place] [address] PCP - General 12/19/22 09/16/23 documented as of this encounter
--- OUTSIDE RECORDS SUMMARY | 2024-08-10 03:29 | XMS_ITS | Encounter Summary ---
Author Organization [facility] Health Address [address] [place] [address] Care Team Providers Care Sample Stitcher Name Role Phone None, Physician Primary Care Provider Unavailabl e Encounter Details Date Type Department Care Team (Latest Contact Info) Description 07/31/2023 Travel Social History Tobacco Use Types Packs/Day [...] you have a drink containing alcohol? Never 07/31/2023 Q2: How many drinks containi ng alcohol do you have on a typical day when you are drinking? Patient does not drink Q3: How often do you have si x or more drinks on one occasion? Never 07/31/2023 Overall Financial Resource Strain (CARDIA) Answe r Date Recorded How hard is it for you to pa y for the very basics like food, housing, medical care, and heating? Somewhat hard 08/01/2023 PHQ-2 Answer Date Recorded Patient Health Questionnaire-2 Score 6 07/31/2023 [facility] of Occupat ional Health - Occupational Stress Questionnaire Answer Date Recorded Do you feel stress - tense, restless, nervous, or anxious, or unable to sleep at night because your mind is troubled all the time - these days? To some extent 08/01/2023 Hunger Vital Sign Answer Date Recorded Within the past 12 months, y ou worried that your food would run out before you got the money to buy more. Never true 08/01/19 24 Within the past 12 months, t he food you bought just didn't last and you didn't have money to get more. Never true 08/01/2023 PRAPARE - Transportation Answer Date Re corded In the past 12 months, has l ack of transportation kept you from medical appointments or from getting medications? No 07/23 In the past 12 months, has l ack of transportation kept you from meetings, work, or from getting things needed for daily living? Yes 08/01/2023 Housing Stability Vital Sign Answer Jerrod e Recorded In the last 12 months, was t here a time when you were not able to pay the mortgage or rent on time? Yes 08/01/2023 In the last 12 months, how many places have you lived? 3 08/01/2023 In the last 12 months, was t here a time when you did not have a steady place to sleep or slept in a penitentiary (including now)? Yes 08/01/2023 Sex and Gender Information Value Date Recorded [...] No 06/13/2023 documented as of this encounter Plan of Treatment Not on file documented as of this encounter Visit Diagnoses Not on filedocumented in this encounter Care Teams Sample Stitcher Relationship Specialty Start Date End Date None, Physician [address] [place] [address] PCP - General 12/19/22 09/16/23 documented as of this encounter
--- OUTSIDE RECORDS SUMMARY | 2024-08-10 03:29 | XMS_ITS | Encounter Summary ---
Author Organization [facility] Health Address [address] [place] [address] Care Team Providers Care Awning Erector Name Role Phone Laurie Mady Primary Care Provider Un available Encounter Details Date Type Department Care Team (Latest Contact Info) Description 02/03/2024 Travel Social History Tobacco Use Types Packs/Day [...] Recorded Patient Health Questionnaire-2 Score 6 02/03/2024 [facility] of Occupat ional Health - Occupational Stress [...] place to sleep or slept in a chcf (including now)? Yes 12/24/2023 Sex and Gender [...] No 12/31/2023 documented as of this encounter Plan of Treatment Not on file documented as of this encounter Visit Diagnoses Not on filedocumented in this encounter Care Teams Awning Erector Relationship Specialty Start Date End Date Mady Sullivan PCP - General 02/03/24 documented as of this encounter
--- OUTSIDE RECORDS SUMMARY | 2024-08-10 03:29 | XMS_ITS | Encounter Summary ---
Author Organization [facility] Health Address [address] [place] [address] Care Team Providers Care Batch Plant Supervisor Name Role Phone Unknown, Provider Primary Care Provider Unavaila ble Encounter Details Date Type Department Care Team (Latest Contact Info) Description 10/30/2023 Travel Social History Tobacco Use Types Packs/Day Years Used Date Smoking Tobacco: Every Day Cigarettes Smokeless Tobacco: Never Comments:Vape several times a day Alcohol Use Standard Drinks/Week Comments Yes 0 (1 standard drink = 0.6 oz pur e alcohol) 2-3 shots once per week AUDIT-C Answer Date Recorded Q1: How often do you have a drink containing alcohol? Never 09/17/2023 Q2: How many drinks containi ng alcohol do you have on a typical day when you are drinking? Patient does not drink Q3: How often do you have si x or more drinks on one occasion? Never 09/17/2023 Overall Financial Resource Strain (CARDIA) Answe r Date Recorded How hard is it for you to pa y for the very basics like food, housing, medical care, and heating? Somewhat hard 08/01/2023 PHQ-2 Answer Date Recorded Patient Health Questionnaire-2 Score 0 09/17/2023 [facility] [place] of Occupat ional Health - Occupational Stress [...] place to sleep or slept in a senior living (including now)? Yes 08/01/2023 Sex and Gender [...] on filedocumented in this encounter Care Teams Batch Plant Supervisor Relationship Specialty Start Date End Date Unknown, Provider PCP - General 09/17/23 02/02/24 documented as of this encounter
--- OUTSIDE RECORDS SUMMARY | 2024-08-10 03:29 | XMS_ITS | Encounter Summary ---
Author Organization [facility] Address [address] [place] [address] Care Team Providers Care Deck Engine Operator Name Role Phone None, Physician Primary Care Provider Unavailabl e Reason for Visit * Reason Comments Post-Op po2 Encounter Details Date Type Department Care Team (Late st Contact Info) Description 06/28/2023 12:30 PM ORNAMENTAL MACHINE OPERATOR Office Visit [facility] - General Surgery [address] [place] [address] Natividad Blair MD [address] [place] [address] Post-operative state (Primary Dx) Social History Tobacco Use Types [...] Recorded Patient Health Questionnaire-2 Score 6 06/21/2023 [facility] [place] of Occupat ional Health - Occupational Stress [...] slept in a penitentiary (including now)? Yes 06/13/2023 Sex and Gender Information Value Date Recorded Sex Assigned at Not on file Gender Identity Not on file Sexual Orientation Not on file documented as of this encounter Last Filed Vital Signs Vital Sign Reading Time Taken Comments Blood Pressure 120/70 06/28/2023 1:07 PM ORNAMENTAL MACHINE OPERATOR Pulse 84 06/28/2023 1:07 PM ORNAMENTAL MACHINE OPERATOR Temperature - - Respiratory Rate 18 06/28/2023 1:07 PM ORNAMENTAL MACHINE OPERATOR Oxygen Saturation 98% 06/28/2023 1:07 PM ORNAMENTAL MACHINE OPERATOR Inhaled Oxygen Concentration - - Weight 73 kg (161 lb) 06/28/2023 1:07 PM ORNAMENTAL MACHINE OPERATOR Height 182.9 cm (6') 06/28/2023 1:07 PM ORNAMENTAL MACHINE OPERATOR Body Mass Index 21.84 06/28/2023 1:07 PM ORNAMENTAL MACHINE OPERATOR documented in this encounter Functional Status Functional [...] No 06/13/2023 documented as of this encounter Progress Notes * Natividad Blair MD - 06/28/2023 12:30 PM CST Date of Encounter: 06/28/2023 Subjective: Phil Chase Jr. is a 27 year old male s/p Repair Right Inguinal Hernia With Mesh (open ) - Right on 04/13/2023 . Last seen 04/19/23 at which time his post op MAURO drain was removed. Since then he hasnoticed a scrotal lump that he is concerned about. Its non tender, doesn't cause any pain or discomfort. Physical Examination: BP 120/70 Pulse 84 Resp 18 Ht 1.829 m (6') Wt 73 kg (161 lb) SpO2 98% BMI 21.84 kg/m?? Body mass index is 21.84 kg/m??. Wt Readings from Last 3 Encounters: 06/28/23 73 kg (161 lb) 06/12/23 73.3 kg (161 lb 8 oz) 04/19/23 75.3 kg (166 lb) General: Well developed, well nourished, oriented in NAD Abdomen: soft, non-tender, non-distended, normal bowel sounds Incision: Clean, dry, and intact without drainage, no recurrent hernia, but some seroma Ext: Without cyanosis, clubbing or edema Assessment / Plan: 27 year old male s/p Repair Right Inguinal Hernia With Mesh (open ) - Right on 04/13/2023 -seroma without any hernia recurrence -offered needles aspiration versus watchful waiting and he much prefers to let it resolve on its own -follow up as needed Natividad Blair MD 06/28/2023 1:16 PM Natividad Blair MD General Surgeon, [facility] Pager [phone] Office/Answering Service [phone] MENTAL MACHINE OPERATOR documented in this encounter Plan of Treatment Not on file documented as of this encounter Visit Diagnoses Diagnosis Post-operative state- Primary Other postprocedural status documented in this encounter Care Teams Deck Engine Operator Relationship Specialty Start Date End Date None, Physician [address] [place] [address] PCP - General 12/19/22 09/16/23 documented as of this encounter
--- OUTSIDE RECORDS SUMMARY | 2024-08-10 03:29 | XMS_ITS | Encounter Summary ---
Author Organization [facility] Address [address] [place] [address] Care Team Providers Care Pole Cutter Name Role Phone None, Physician Primary Care Provider Unavailabl e Encounter Details Date Type Department Care Team (Late st Contact Info) Description 01/11/2023 Orders Only [facility] - General Surgery [address] [place] [address] Natividad Ponce MD [address] [place] [address] HIV infection, asymptomatic (HCC) Social History Tobacco Use Types Packs/Day Years Used Date Smoking Tobacco: Never Smokeless Tobacco: Never Alcohol Use Standard Drinks/Week Comments Not Currently 0 (1 standard drink = 0.6 oz pur e alcohol) social Sex and Gender Information Value Date Recorded Sex Assigned at Not on file Gender Identity Not on file Sexual Orientation Not on file COVID-19 Exposure Response Date Recorded In the last 10 days, have yo u been in contact with someone who was confirmed or suspected to have Coronavirus/COVID-19? No / Unsure 12/19/2022 1:40 PM CDT documented as of this encounter Plan of Treatment Not on file documented as of this encounter Procedures Procedure Name Priority Date/Time Associated Diagnosis Comments CD4 (ABSOLUTE T4) Routine 01/12/2023 1:4 0 PM CDT HIV infection, asymptomatic (HCC) documented in this encounter Results * (ABNORMAL) CD4 (ABSOLUTE T4) (01/12/2023 1:40 PM CDT) Absolute CD 4 [place] 176(L) 359 - 1,519 /uL [facility] INSURANCE [...] Resulting Agency Comment [facility]: [facility] [address] [facility] [id number] Natividad Ponce MD LAB - [facility]ATOLOGY ORD ERABLES [facility] INS[facility] BILL [address] [place] [address] documented in this encounter Visit Diagnoses Diagnosis HIV infection, asymptomatic (HCC)- Primary Asymptomatic human immunodeficiency virus (HIV) infection status documented in this encounter Care Teams Pole Cutter Relationship Specialty Start Date End Date None, Physician [address] [place] [address] PCP - General 12/19/22 09/16/23 documented as of this encounter
--- OUTSIDE RECORDS SUMMARY | 2024-08-10 03:29 | XMS_ITS | Encounter Summary ---
Author Organization [facility] Address [address] [place] [address] Care Team Providers Care Improvement Intern Name Role Phone None, Physician Primary Care Provider Unavailabl e Reason for Visit * Reason Comments Post-Op po1 Encounter Details Date Type Department Care Team (Late st Contact Info) Description 04/19/2023 10:00 AM CDT Office Visit [facility] - General Surgery [address] [place] [address] Natividad Blair MD [address] [facility] [facility] [address] [place] [address] Surgery follow-up (Primary Dx) Social History Tobacco Use Types [...] Sign Reading Time Taken Comments Blood Pressure 130/80 04/19/2023 10:42 AM CDT Pulse - - Temperature - - Respiratory Rate 15 04/19/2023 10:42 AM CDT Oxygen Saturation - - Inhaled Oxygen Concentration - - Weight 75.3 kg (166 lb) 04/19/2023 10:42 AM CDT Height 182.9 cm (6') 04/19/2023 10:42 AM CDT Body Mass Index 22.51 04/19/2023 10:42 AM CDT documented in this encounter Progress Notes * Natividad Blair MD - 04/19/2023 10:00 AM CDT Date of Encounter: 04/19/2023 Subjective: Phil Chase Jr. is a 27 year old male s/p Repair Right Inguinal Hernia With Mesh (open ) - Right on 04/13/2023 , here to evaluate for MAURO removal. No pain currently, off pain meds. Tolerating diet and having BM, did use the stool softener. No nausea or emesis, no fevers or chills. MAURO with serous drainage, daily amounts: 80, 70, 50, 0mL No drianage the past 2 days. Physical Examination: BP 130/80 Resp 15 Ht 1.829 m (6') Wt 75.3 kg (166 lb) BMI 22.51 kg/m?? Body mass index is 22.51 kg/m??. Wt Readings from Last 3 Encounters: 04/19/23 75.3 kg (166 lb) 04/13/23 75.3 kg (166 lb) 04/04/23 75.3 kg (166 lb) General: Well developed, well nourished, oriented in NAD Abdomen: soft, non-tender, non-distended, normal bowel sounds Incision: Clean, dry, and intact without drainage, no recurrent hernia, MAURO empty, no drainage Ext: Without cyanosis, clubbing or edema Assessment / Plan: 27 year old male s/p Repair Right Inguinal Hernia With Mesh (open ) - Right on 04/13/2023 -MAURO drain removed, -Follow up 2 weeks for final check Natividad Blair MD 04/19/2023 10:51 AM Natividad Blair MD General Surgeon, [facility] Pager [phone] Office/Answering Service [phone] documented in this encounter Plan of Treatment Not on file documented as of this encounter Visit Diagnoses Diagnosis Surgery follow-up- Primary Follow-up examination, following unspecified surgery documented in this encounter Care Teams Improvement Intern Relationship Specialty Start Date End Date None, Physician [address] [place] [address] PCP - General 12/19/22 09/16/23 documented as of this encounter
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
--- OUTSIDE RECORDS SUMMARY | 2024-08-10 03:29 | XMS_ITS | Encounter Summary ---
Author Organization [facility] Address [address] [place] [address] Care Team Providers Care Manager Quality Compliance Name Role Phone Geofftatijamila Mady Primary Care Provider Un available Encounter Details Date Type Department Care Team (Latest Contact Info) Description 04/22/2024 Travel Social History Tobacco Use Types Packs/Day [...] Recorded Patient Health Questionnaire-2 Score 6 02/03/2024 [facility] [place] of Occupat ional Health - Occupational Stress [...] place to sleep or slept in a intermediate (including now)? Yes 02/16/2024 Sex and Gender [...] on filedocumented in this encounter Care Teams Manager Quality Compliance Relationship Specialty Start Date End Date Mady Sullivan PCP - General 02/03/24 documented as of this encounter
--- OUTSIDE RECORDS SUMMARY | 2024-08-10 03:29 | XMS_ITS | Encounter Summary ---
Author Organization [facility] Address [address] [place] [address] Care Team Providers Care General Cargo Clerk Name Role Phone Laurie Mady Primary Care Provider Un available Encounter Details Date Type Department Care Team (Latest Contact Info) Description 02/11/2024 Travel Social History Tobacco Use Types Packs/Day [...] Recorded Patient Health Questionnaire-2 Score 6 02/03/2024 [facility] [place] of Occupat ional Health - Occupational Stress [...] place to sleep or slept in a mcc (including now)? Yes 12/24/2023 Sex and Gender [...] on filedocumented in this encounter Care Teams General Cargo Clerk Relationship Specialty Start Date End Date Mady Sullivan PCP - General 02/03/24 documented as of this encounter
--- OUTSIDE RECORDS SUMMARY | 2024-08-10 03:29 | XMS_ITS | Encounter Summary ---
Author Organization [facility] Address [address] [place] [address] Care Team Providers Care Acting Professor Name Role Phone Unknown, Provider Primary Care Provider Unavaila ble Encounter Details Date Type Department Care Team (Latest Contact Info) Description 09/17/2023 Travel Social History Tobacco Use Types Packs/Day [...] Recorded Patient Health Questionnaire-2 Score 0 09/17/2023 [facility] [place] of Occupat ional Health - Occupational Stress [...] slept in a [facility] (including now)? Yes 08/01/2023 Sex and Gender [...] on filedocumented in this encounter Care Teams Acting Professor Relationship Specialty Start Date End Date Unknown, Provider PCP - General 09/17/23 02/02/24 documented as of this encounter
--- OUTSIDE RECORDS SUMMARY | 2024-08-10 03:29 | XMS_ITS | Encounter Summary ---
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 Abnormal; Notable for the following components: Result Value WBC 2.5 (*) Hemoglobin 12.0 (*) Hematocrit 36.0 (*) All other components within normal limits COMPREHENSIVE METABOLIC PANEL - Abnormal; Notable for the following components: Chloride 111 (*) Albumin 3.3 (*) Albumin/Globulin Ratio 0.9 (*) All other components within normal limits SALICYLATE LEVEL BLOOD - Abnormal; Notable for the following components: Salicylate <5 (*) All other components within normal limits Narrative: This test is not intended for use with low-dose aspirin therapy. Most patients on low-dose aspirin for cardiovascular prophylaxis will have serum concentrations near or below the lower limit of the analytical range. CK BLOOD - Abnormal; Notable for the following components: CK Total 249 (*) All other components within normal limits DIFFERENTIAL MANUAL - Abnormal; Notable for the following components: Neutrophil % 25 (*) Lymphocyte % 59 (*) Eosinophil % 10 (*) Neutrophil Absolute 0.63 (*) [place] Cells MODERATE (*) Smudge Cells PRESENT (*) Large Platelets PRESENT (*) All other components within normal limits ACETAMINOPHEN LEVEL - Normal Narrative: Acetaminophen Toxicity Levels (Hours Post Ingestion): >200 ug/mL at 4 hours >100 ug/mL at 8 hours >50 ug/mL at 12 hours For acute ingestion, please refer to Acetaminophen nomogram to determine the risk of toxicity basedon time since ingestion and acetaminophen level (see link provided). Note the nomogram disclaimer. WARNING: Assessing the potential toxicity of an acetaminophen level on a standard risk nomogram must take into consideration many factors including any uncertainty of the time since ingestion or the possibility of other medications that may alter the peak level. Contact the [facility] at or reserved for healthcare professionals to assist you in evaluatingpotentially toxic acetaminophen levels. URINE DRUG SCREEN IMMUNOASSAY No orders to display MDM: Problem List: #1. Suicidal ideation Differential diagnosis to evaluate in the emergent setting: depression suicidal ideation drug induced mood disorder Workup: See lab testing and radiography ordered Treatment plan: Will discuss with psychiatry. Plan for psych labs. Will sign out pending psych eval. Clinical Impression: 1. Methamphetamine abuse (HCC) 2. Suicidal ideation 3. Bipolar I disorder (HCC) Consult Yes Procedure done at this time No Ultrasound done at this time No Critical Care: 0 minutes Silvia uDrham MD 04/30/2024 10:58 PM documented in this encounter Plan of Treatment Scheduled Orders Name Type Priority Associated Diagnoses Orde r Schedule EKG 12-LEAD ECG Routine Methamphetamine abuse (HCC) ONCE for 1 Occurrences starting 04/26/2024 until 04/26/2024 documented as of this encounter Procedures Procedure Name Priority Date/Time Associated Diagnosis Comments CARDIAC EKG ORDER 04/28/2024 2:3 8 PM CDT DIFFERENTIAL MANUAL STAT 04/26/2024 4 :07 AM CDT CBC W AUTO DIFFERENTIAL STAT 04/26/2024 4:07 AM CDT COMPREHENSIVE METABOLIC PANEL STAT 04/26/2024 4:07 AM CDT CK BLOOD STAT 04/26/2024 4:07 AM CDT SALICYLATE LEVEL BLOOD STAT 4:07 AM CDT ACETAMINOPHEN LEVEL STAT 04/26/2024 4 :07 AM CDT documented in this encounter Results * CARDIAC EKG ORDER (04/28/2024 2:38 PM CDT) Narrative 04/28/2024 2:38 PM CDT Ordered by an unspecified provider. Scanned Document CARDIAC SERVICES ORD ERABLES * (ABNORMAL) DIFFERENTIAL MANUAL (04/26/2024 4:07 AM CDT) Neutrophil % 25(L) 41 - 74 % 04/26/2024 5:26 AM CDT [facility] Lymphocyte % 59(H) 17 - 47 % 04/26/2024 5:26 AM T [facility] Monocyte % 6 3 - 11 % 04/26/2024 5:26 AM [facility] Eosinophil % 10(H) 0 - 7 % 04/26/2024 5:26 AM T [facility] Neutrophil Absolute 0.63(L) 1.60 - 7.50 x10E9/L 04/26/2024 5:26 AM CDT [facility] Lymphocyte Absolute 1.48 1.00 - 4.40 x10E9/L 04/26/2024 5:26 AM [facility] Monocyte Absolute 0.15 0.15 - 1.00 x10E9/L 04/26/2024 5:26 AM CDT [facility] Eosinophil Absolute 0.25 0.00 - 0.60 x10E9/L 04/26/2024 5:26 AM CDT [facility] RBC Morphology REVIEWED 04/26/2024 5:26 AM CDT [facility] [place] Cells MODERATE(A) (none) 04/26/2024 5:26 AM CDT [facility] Smudge Cells PRESENT(A) (none) 04/26/2024 5:26 AM CDT [facility] Large Platelets PRESENT(A) (none) 04/26/2024 5:26 AM CDT [facility] Blood BLOOD SPECIMEN / Unknown Venipuncture / Unknown 04/26/2024 4:07 AM CDT 04/26/2024 4:09 AM CDT Silvia Durham MD LAB - HEMATOLOGY ORD ERABLES [facility] [address] [place] [phone], [facility] [phone] * (ABNORMAL) CK BLOOD (04/26/2024 4:07 AM CDT) CK Total 249(H) 30 - 200 U/L 04/26/2024 4:43 AM CDT [facility] Blood BLOOD SPECIMEN / Unknown Venipuncture / Unknown 04/26/2024 4:07 AM CDT 04/26/2024 4:09 AM CDT Silvia Durham MD LAB - CHEMISTRY ORDDenise MELENDREZ [address] [address], [place] [phone] * (ABNORMAL) SALICYLATE LEVEL BLOOD (04/26/2024 4:07 AM CDT) Salicylate <5(L) 15 - 30 mg/dL 04/26/2024 4:43 AM CDT [facility] Blood BLOOD SPECIMEN / Unknown Venipuncture / Unknown 04/26/2024 4:07 AM CDT 04/26/2024 4:09 AM CDT Narrative [facility] - 04/26/2024 4:43 AM CDT This test is not intended for use with low-dose aspirin therapy. Most patients on low-dose aspirin for cardiovascular prophylaxis will have serum concentrations near or below the lower limit of the analytical range. Silvia Durham MD LAB - CHEMISTRY AMANDA MELENDREZ Performing Organization Address [facility]/ZIP Co de Phone Number [facility] [address] [place] [phone], [facility] [phone] * ACETAMINOPHEN LEVEL (04/26/2024 4:07 AM CDT) Acetaminophen <3.0 <3.0 ug/mL 04/26/2024 4:43 AM CDT [facility] Blood BLOOD SPECIMEN / Unknown Venipuncture / Unknown 04/26/2024 4:07 AM CDT 04/26/2024 4:09 AM CDT Narrative [facility] - 04/26/2024 4:43 AM CDT Acetaminophen Toxicity Levels (Hours Post Ingestion): ? >200 ug/mL at 4 hours ? >100 ug/mL at 8 hours ? >50 ug/mL at 12 hours For acute ingestion, please refer to Acetaminophen nomogram to determine the risk of toxicity based on time since ingestion and acetaminophen level (see link provided). Note the nomogram disclaimer. WARNING: Assessing the potential toxicity of an acetaminophen level on a standard risk nomogram must take into consideration many factors including any uncertainty of the time since ingestion or the possibility of other medications that may alter the peak level. Contact the [facility] at or reserved for healthcare professionals to assist you in evaluating potentially toxic acetaminophen levels. Silvia Durham MD LAB - CHEMISTRY AMANDA MELENDREZ Performing Organization Address [facility]/ZIP Co de Phone Number [facility] [address] [place] [phone], [place] [phone] * (ABNORMAL) COMPREHENSIVE METABOLIC PANEL (04/26/2024 4:07 AM CDT) BUN 16 7 - 26 mg/dL 04/26/2024 4:43 AM [facility] Creatinine 1.06 0.71 - 1.16 mg/dL 04/26/2024 4:43 AM [facility] Sodium 141 136 - 145 mmol/L 04/26/2024 4:43 AM [facility] Potassium 3.9 3.5 - 4.5 mmol/L 04/26/2024 4:43 AM [facility] Chloride 111(H) 98 - 107 mmol/L 04/26/2024 4:43 AM [facility] CO2 23 22 - 29 mmol/L 04/26/2024 4:43 AM [facility] Glucose 89 70 - 115 mg/dL 04/26/2024 4:43 AM [facility] Calcium 8.5 8.4 - 10.2 mg/dL 04/26/2024 4:43 AM [facility] Protein Total 7.1 6.0 - 8.3 g/dL 04/26/2024 4:43 AM [facility] Albumin 3.3(L) 3.4 - 5.0 g/dL 04/26/2024 4:43 AM [facility] Bilirubin Total 0.2 0.2 - 1.2 mg/dL 04/26/2024 4:43 AM [facility] Alkaline Phosphatase 69 40 - 150 U/L 04/26/2024 4:43 AM [facility] ALT 14 5 - 55 U/L 04/26/2024 4:43 AM [facility] AST 21 5 - 34 U/L 04/26/2024 4:43 AM [facility] Anion Gap 7 6 - 16 04/26/2024 4:43 AM [facility] BUN/Creatinine Ratio 15 7 - 23 04/26/2024 4:43 AM [facility] Osmolality Calculated 293 275 - 295 mOsm/kg 04/26/2024 4:43 AM [facility] Albumin/Globulin Ratio 0.9(L) 1.1 - 2.3 04/26/2024 4:43 AM [facility] eGFR by CKD-EPI >90 >=90 mL/min/1.7 3 m2 04/26/2024 4:43 AM [facility] Blood BLOOD SPECIMEN / Unknown Venipuncture / Unknown 04/26/2024 4:07 AM CDT 04/26/2024 4:09 AM CDT Silvia Durham MD LAB - CHEMISTRY AMANDA MELENDREZ Performing Organization Address [place]/[facility]/ZIP Co de Phone Number [facility] [address] [place] [phone], [facility] [phone] * (ABNORMAL) CBC W AUTO DIFFERENTIAL (04/26/2024 4:07 AM CDT) WBC 2.5(L) 4.0 - 10.7 x10E9/L 04/26/2024 5:26 AM [facility] RBC Count 4.49 4.30 - 5.80 x10E12/L 04/26/2024 5:26 AM [facility] Hemoglobin 12.0(L) 13.3 - 17.5 g/dL 04/26/2024 5:26 AM [facility] Hematocrit 36.0(L) 38.7 - 51.1 % 04/26/2024 5:26 AM [facility] MCV 80.2 80.0 - 98.0 fL 04/26/2024 5:26 AM [facility] MCH 26.7 26.7 - 33.6 pg 04/26/2024 5:26 AM [facility] MCHC 33.3 31.7 - 36.3 g/dL 04/26/2024 5:26 AM [facility] RDW-CV 14.5 11.3 - 14.8 % 04/26/2024 5:26 AM [facility] Platelet Count 289 150 - 420 x10E9/L 04/26/2024 5:26 AM [facility] MPV 9.6 7.8 - 11.4 fL 04/26/2024 5:26 AM [facility] Blood BLOOD SPECIMEN / Unknown Venipuncture / Unknown 04/26/2024 4:07 AM CDT 04/26/2024 4:09 AM CDT Silvia Durham MD LAB - HEMATOLOGY ORD ERABLES [facility] [address] [facility] [place] [id number] [place] [address], [facility] [phone] documented in this encounter Visit Diagnoses Diagnosis Methamphetamine abuse (HCC)- Primary Nondependent amphetamine or related acting sympathomimetic abuse, unspecified Suicidal ideation Bipolar I disorder (HCC) Bipolar I disorder, most recent episode (or current) unspecified documented in this encounter Administered Medications Inactive Administered Medications - up to 3 most recent administrations Medication Order MAR Action Action Date Dose Rate Site lactated ringers IV bolus 1,000 mL, at 1,935.48 mL/hr, Administer over 31 Minutes, ONCE, 1 dose, On 04/26/24 at 0515 $ New Bag/Syringe 04/26/2024 5:29 AM CDT 1,000 mL 1935.48 mL/hr documented in this encounter Active and Recently Administered Medications Times are shown in CDT. Scheduled Medication Order 04/24/2024 04/25/2024 04/26/2024 lactated ringers IV bolus (COMPLETED) 1,000 mL, at 1,935.48 mL/hr, Administer over 31 Minutes, ONCE, 1 dose, On 04/26/24 at 0515 0529 ($ New Bag/Syri nge - Provider: Joellen Gilmore, RN)[id number] (Stopped - Provider: Joellen Gilmore, RN) documented in this encounter Care Teams Nursing Service Administrator Relationship Specialty Start Date End Date Mady Sullivan PCP - General 02/03/24 documented as of this encounter
--- OUTSIDE RECORDS SUMMARY | 2024-08-10 03:29 | XMS_ITS | Encounter Summary ---
Author Organization [facility] Health Address [address] [facility] [place] [address] Care Team Providers Care Centerless Grinding Machine Adjuster Name Role Phone Laurie Mady Primary Care Provider Un available Encounter Details Date Type Department Care Team (Latest Contact Info) Description 02/15/2024 Travel Social History Tobacco Use Types Packs/Day [...] Recorded Patient Health Questionnaire-2 Score 6 02/03/2024 [facility] - Occupational Stress [...] or have serious hearing difficult y? No 02/14/2024 Is person blind or have serious difficulty seein g? No 02/14/2024 Does person have serious dif ficulty walking/climbing stairs? No 02/14/2024 Does person have difficulty dressing/bathing? No 02/14/2024 Does person have difficulty doing errands alone? No 02/14/2024 Cognitive Status Response Date of Assessm ent Does person have difficulty concentrating/remembering/making decisions? No 02/14/2024 documented as of this encounter Plan of Treatment Not on file documented as of this encounter Visit Diagnoses Not on filedocumented in this encounter Care Teams Centerless Grinding Machine Adjuster Relationship Specialty Start Date End Date Mady Sullivan PCP - General 02/03/24 documented as of this encounter
--- OUTSIDE RECORDS SUMMARY | 2024-08-10 03:29 | XMS_ITS | Encounter Summary ---
Author Organization [facility] Address [address] [facility] [place] [address] Care Team Providers Care Panel Machine Setter Name Role Phone None, Physician Primary Care Provider Unavailabl e Reason for Visit * Reason Onset Date Comments Surgical Followup 04/17/2023 Encounter Details Date Type Department Care Team (Late st Contact Info) Description 04/17/2023 Telephone [facility] - General Surgery [address] [place] [address] Natividad Blair MD [address] [place] [address] Surgical Followup Social History Tobacco Use Types Packs/Day Years Used Date Smoking Tobacco: Never Smokeless Tobacco: Never Alcohol Use Standard Drinks/Week Comments Yes 0 (1 standard drink = 0.6 oz pur e alcohol) social Sex and Gender Information Value Date Recorded Sex Assigned at Not on file Gender Identity Not on file Sexual Orientation Not on file documented as of this encounter Miscellaneous Notes * Telephone Encounter - Caterina Benoit - 04/17/2023 2:34 PM CDT Called patient's mother back to ask if they could come in the office wednesday 04/18 documented in this encounter Plan of Treatment Not on file documented as of this encounter Visit Diagnoses Not on filedocumented in this encounter Care Teams Panel Machine Setter Relationship Specialty Start Date End Date None, Physician [facility] [place] [address] PCP - General 12/19/22 09/16/23 documented as of this encounter
--- OUTSIDE RECORDS SUMMARY | 2024-08-10 03:29 | XMS_ITS | Encounter Summary ---
Author Organization [facility] Address [address] [place] [address] Care Team Providers Care Collision Estimator Name Role Phone Laurie Ishaandonis Primary Care Provider Un available Reason for Visit * Reason Comments Pain Ankle Left ankle pain and difficulty ambulating. SUICIDAL Pt endorses suicidal thoughts, has not had his bipolar meds in over a week. Encounter Details Date Type Department Care Team (Late st Contact Info) Description 04/26/2024 12:42 AM CDT - 04/26/2024 3:06 AM CDT Emergency ER at [address] [address] Josh Mcrae MD [address] [place] [address] PEDIATRIC [place] [phone] Acute left ankle pain; Suicidal ideation Discharge Disposition: Psychiatric Hospital or Unit Social [...] Recorded Patient Health Questionnaire-2 Score 6 02/03/2024 [facility] [place] Occupat ional Health - Occupational Stress [...] in a care home (including now)? Yes 02/16/2024 Sex and Gender Information Value Date Recorded Sex Assigned at Not on file Gender Identity Not on file Sexual Orientation Not on file documented as of this encounter Last Filed Vital Signs Vital Sign Reading Time Taken Comments Blood Pressure 131/78 04/26/2024 12:43 AM CDT Pulse 72 04/26/2024 12:43 AM CDT Temperature 36.6 ??C (97.9 ??F) 04/26/2024 12:43 AM C DT Respiratory Rate 20 04/26/2024 12:43 AM CDT Oxygen Saturation 100% 04/26/2024 12:43 AM CDT Inhaled Oxygen Concentration - - Weight 81.6 kg (180 lb) 04/26/2024 12:43 AM CDT Height - - Body Mass Index 24.41 04/22/2024 8:27 AM [...] MG DAILY 30 capsule 02/21/2024 02/20/2025 HYDROcodone-acetaminophen ([place]) 5-325 MG tablet Take 1 (one) tablet [...] as of this encounter ED Notes * Minnie Law RN - 04/26/2024 3:05 AM CDT Report given to [facility] at this time, care transferred. Patient's belongings given to EMS. * Minnie Law RN - 04/26/2024 2:51 AM CDT [facility] contacted at this time. Updated ETA of 0315 given. Patient sleeping on stretcher, chest rise and fall noted. trencher driver remains at bedside. * Minnie Law RN - 04/26/2024 2:00 AM CDT Report called to [facility] ER at this time. VICTOR MANUEL Schmidt accepted report. * Josh Mcrae MD - 04/26/2024 1:36 AM CDT Provider contact with the patient: 04/26/2024 1:36 AM [facility] EM[facility]Y [facility]PARTMENT Phil Chase Jr. [id number] History Chief Complaint Patient presents with Pain Ankle Left ankle pain and difficulty ambulating. SUICIDAL Pt endorses suicidal thoughts, has not had his bipolar meds in over a week. Chief complaint narrative was entered by triage nurse, not by physician. I have read the resident/medical student/DIRECTOR OF FUNDRAISING history. Unless appended by me below, I agree with findings as documented. HPI History provided per: Patient Phil Chase Jr. is a 28 year old male with a PMHx of bipolar disorder and HIV who presents to ED for evaluation of L ankle pain and SI. He reports L ankle pain since tripping down stairs 4 days ago and difficulty ambulating. He also reports not taking his bipolar medications for over a week, and endorses SI. Endorses plan today to harm himself by overdosing on medications. No other recent injuries or illnesses. All immunizations are up-to-date. No Known Allergies Past Medical History: Diagnosis Date Human immunodeficiency virus (HIV) disease (HCC) Social History Socioeconomic History Marital status: Single Spouse name: Not on file Number of children: Not on file Years of education: Not on file Highest education level: Not on file Occupational History Not on file Tobacco Use Smoking status: Former Passive exposure: Never Smokeless tobacco: Never Tobacco comments: Vape several times a day Vaping Use Vaping Use: Former Substance and Sexual Activity Alcohol use: Not Currently Comment: socially Drug use: Yes Types: Marijuana, Methamphetamines Sexual activity: Not on file Other Topics Concern Not on file Social History Narrative Not on file Social Determinants of Health Financial Resource Strain: Low Risk (02/16/2024) Overall Financial Resource Strain (CARDIA) Difficulty of Paying Living Expenses: Not very hard Recent Concern: Financial Resource Strain - Medium Risk (12/24/2023) Overall Financial Resource Strain (CARDIA) Difficulty of Paying Living Expenses: Somewhat hard Food Insecurity: No Food Insecurity (02/16/2024) Hunger Vital Sign Worried About Running Out of Food in the Last Year: Never true Ran Out of Food in the Last Year: Never true Transportation Needs: Unmet Transportation Needs (02/16/2024) PRAPARE - Transportation Lack of Transportation (Medical): No Lack of Transportation (Non-Medical): Yes Stress: Stress Concern Present (02/16/2024) [facility] - Occupational Stress Questionnaire Feeling of Stress : Rather much Housing Stability: High Risk (02/16/2024) Housing Stability Vital Sign Unable to Pay for Housing in the Last Year: No Number of Places Lived in the Last Year: 2 Unstable Housing in the Last Year: Yes No family history on file. Patient's Medications New Prescriptions No medications on file Previous Medications ARIPIPRAZOLE (ABILIFY) 10 MG TABLET TAKE ONE TABLET BY MOUTH ONCE DAILY [id number] (BIKTARVY) 50-200-25 MG Take 1 (one) tablet by mouth once dailyReasons: HIV Disease DOXEPIN (SINEQUAN) 25 MG CAPSULE Take 1 (one) capsule by mouth at bedtime Reasons: sleep DULOXETINE (CYMBALTA) 30 MG CAPSULE TAKE ONE CAPSULE BY MOUTH ONCE DAILY. TAKE WITH 60MG CAPSULES FOR A DAILY TOTAL OF 90MG DULOXETINE (CYMBALTA) 60 MG CAPSULE Take 1 (one) capsule by mouth once daily DULOXETINE (CYMBALTA) 60 MG CAPSULE TAKE ONE CAPSULE BY MOUTH ONCE DAILY WITH 30 MG CAPSULE FOR A TOTAL OF 90 MG DAILY HYDROXYZINE HCL (ATARAX) 50 MG TABLET Take 1 (one) tablet by mouth every 6 hours as needed (Anxiety) Reasons: Feeling Anxious PRAZOSIN (MINIPRESS) 2 MG CAPSULE TAKE ONE CAPSULE BY MOUTH EVERY NIGHT AT BEDTIME FOR 30 DAYS TRAZODONE (DESYREL) 50 MG TABLET TAKE ONE TABLET BY MOUTH EVERY NIGHT AT BEDTIME NEEDED FOR INSOMNIA Modified Medications No medications on file Discontinued Medications No medications on file Review of Systems All relevant systems reviewed and all negative except as noted in resident/medical student/DIRECTOR OF FUNDRAISING and attending HPI/ROS. Review of Systems Musculoskeletal: Positive for gait problem. Psychiatric/Behavioral: Positive for suicidal ideas. Physical Exam I have reviewed the resident/medical student/DIRECTOR OF FUNDRAISING physical exam. Unless appended by me below, I agreewith the PE as documented. Vitals: 04/26/24 0043 BP: 131/78 Pulse: 72 Resp: 20 Temp: 97.9 ??F (36.6 ??C) SpO2: 100% Weight: 81.6 kg (180 lb) Constitutional: Pt appears well-developed and well-nourished; in no acute distress Head: Normocephalic; atraumatic. Eyes: Conjunctivae are normal. ENT: Mucous membranes moist. Neck: Supple. Normal ROM. Cardiovascular: Good perfusion. Pulmonary: Normal respiratory effort. Abdominal: No distension. Extremities: Full ROM. Limping. Neurological: Pt is alert. Skin: No rash or lesions. Nursing notes and vitals reviewed. Procedures Procedures Labs/Orders Orders Placed This Encounter XR ANKLE 3+ VW LEFT ibuprofen (Motrin) tablet 600 mg ibuprofen (Motrin) tablet [facility] DISCONTD: ibuprofen (Motrin) tablet 600 mg XR ANKLE 3+ VW LEFT (Results Pending) No results found for this visit on 04/26/24. ED Course Initial Assessment & Plan: Pt is a 28 year old male presenting to the ED for evaluation of L ankle pain and SI. Ankle film obtained which showed no acute fractures per my read. Given his psychiatric hx and complaints, pt was transferred for [facility] for further management. 1:39 AM - I have made arrangements to transfer the patient to [facility]. Patient is stable for transfer at this time. See transfer documents for further details. Medical Decision Making Medical Decision Making Amount and/or Complexity of Data Reviewed Radiology: ordered. The total time providing critical care (excluding time spent for procedures) was: 0 minutes. Clinical Impression and Disposition Final Diagnosis: Final diagnoses: Acute left ankle pain Suicidal ideation Diagnosis: Encounter Diagnoses Name Primary? Acute left ankle pain Suicidal ideation Disposition: Transfer to [facility] 04/26/2024 1:39 AM Scribe Attestation By signing my name below, I, Mallory Garduno, attest that this documentation has been prepared underthe direction and in the presence of Dr. Mcrae Electronically Signed: Mallory Garduno 04/26/2024 1:36 AM Provider Attestation I, Dr. Mcrae, personally performed the services described in this documentation. All medical record entries made by the scribe were at my direction and in my presence. I have reviewed the chart and agree that the record reflects my personal performance and is accurate and complete. I have fully participated in the care of this patient. I have reviewed all pertinent clinical information available tome during this encounter, including history, physical exam and plan. I have reviewed nursing notes,vital signs, available labs and radiographic studies. With respect to physicians in training and mid-level providers, I, Dr. Mcrae, agree with the assessment and plan except if revised in my note. * Minnie Law RN - 04/26/2024 1:04 AM CDT Patient presents as safety/elopement risk. Security, CSN and primary RN aware of patient arrival and reason for visit. Patient escorted to room with safe set-up verified. Safety precautions including1:1 observation by health and safety advisor initiated. Patient provided with blue paper scrubs and after changing, patient's clothing/belongings documented and placed in labeled belonging bag. Bag secured with zip tie ([id number]) and secured in locked cabinet. Elopement band activated ([id number])and placed on dominant extremity. Patient screened by security. documented in this encounter Plan of Treatment Not on file documented as of this encounter Procedures Procedure Name Priority Date/Time Associated Diagnosis Comments XR ANKLE LEFT 3VW OR MORE STAT 04/26/2024 1:06 AM CDT Acute left ankle pain documented in this encounter Results * XR ANKLE 3+ VW LEFT (04/26/2024 1:06 AM CDT) Anatomical Region Laterality Modality Lower Extremity Computed Radiogr aphy 04/26/2024 8:03 AM CDT Narrative 04/26/2024 8:05 AM CDT PROCEDURE: ??XR ANKLE LEFT 3VW OR MORE DATE/TIME OF EXAM: ??04/26/2024 1:06 AM CLINICAL INFORMATION: None relevant/not provided if blank. Indication: M25.572: Pain in left ankle and joints of left foot Additional History: Left ankle pain, difficulty walking COMPARISON: None. FINDINGS AND IMPRESSION: Tiny ossific density is seen on the lateral image adjacent to the calcaneal cuboid junction, possible normal variant versus tiny fracture. Please correlate with point tenderness. Remaining osseous structures are otherwise radiographically normal. > Interpreting Provider: Teresa Schuster DO on 04/26/2024 8:05 AM Procedure Note Teresa Schuster DO - 04/26/2024 PROCEDURE: XR ANKLE LEFT 3VW OR MORE DATE/TIME OF EXAM: 04/26/2024 1:06 AM CLINICAL INFORMATION: None relevant/not provided if blank. Indication: M25.572: Pain in left ankle and joints of left foot Additional History: Left ankle pain, difficulty walking COMPARISON: None. FINDINGS AND IMPRESSION: Tiny ossific density is seen on the lateral image adjacent to thecalcaneal cuboid junction, possible normal variant versus tiny fracture. Please correlate with point tenderness. Remaining osseous structures areotherwise radiographically normal. > Interpreting Provider: Teresa cShuster DO on 04/26/2024 8:05 AM Josh Mcrae MD DIAGNOSTIC IMAGING O JOE documented in this encounter Visit Diagnoses Diagnosis Acute left ankle pain Suicidal ideation documented in this encounter Administered Medications Inactive Administered Medications - up to 3 most recent administrations Medication Order MAR Action Action Date Dose Rate Site ibuprofen (Motrin) tablet 600 mg 600 mg, Oral, NOW, 1 dose, On 04/26/24 at 0045, Maximum allowable amount = 3200 mg / 24 hours. Patient preference for lesser PRN pain meds may be honored when the patient requests a less strong medication, a lower dose, or a less intrusive route of administration when the lesser drug, dose and route have been ordered for the patient. This patient request must be documented in the MAR. If both oral and IV options are ordered for the same pain severity, give oral first unless patient cannot tolerate oral intake $ Given 04/26/2024 12:48 AM CDT 600 mg documented in this encounter Active and Recently Administered Medications Times are shown in CDT. Scheduled Medication Order 04/24/2024 04/25/2024 04/26/2024 ibuprofen (Motrin) tablet 600 mg (COMPLETED) 600 mg, Oral, NOW, 1 dose, On 04/26/24 at 0045, Maximum allowable amount = 3200 mg / 24 hours. Patient preference for lesser PRN pain meds may be honored when the patient requests a less strong medication, a lower dose, or a less intrusive route of administration when the lesser drug, dose and route have been ordered for the patient. This patient request must be documented in the MAR. If both oral and IV options are ordered for the same pain severity, give oral first unless patient cannot tolerate oral intake 0048 ($ Given - Prov ider: Carla Chavez, EMT-P) documented in this encounter Care Teams Collision Estimator Relationship Specialty Start Date End Date Mady Sullivan PCP - General 02/03/24 documented as of this encounter
--- OUTSIDE RECORDS SUMMARY | 2024-08-10 03:29 | XMS_ITS | Encounter Summary ---
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 (08/01/2023) Housing Stability Vital Sign ??? Unable to Pay for Housing in the Last Year: Yes ??? Number of Places Lived in the Last Year: 3 ??? Unstable Housing in the Last Year: Yes Review of Systems ROS Physical Exam BP 128/73 (BP Cuff Size: A) Pulse 95 Temp 98.7 ??F (37.1 ??C) (Oral) Resp 20 Ht 1.829 m (6') Wt 79.4 kg (175 lb) SpO2 99% BMI 23.73 kg/m?? Physical Exam Vitals and nursing note reviewed. Constitutional: Appearance: He is well-developed. Comments: Cooperative Pleasant man, lying in bed HENT: Head: Normocephalic and atraumatic. Eyes: Conjunctiva/sclera: Conjunctivae normal. Pupils: Pupils are equal, round, and reactive to light. Cardiovascular: Rate and Rhythm: Normal rate and regular rhythm. Pulmonary: Effort: Pulmonary effort is normal. No respiratory distress. Breath sounds: No stridor. Abdominal: Palpations: Abdomen is soft. Tenderness: There is no abdominal tenderness. Skin: General: Skin is warm. Neurological: General: No focal deficit present. Mental Status: He is alert and oriented to person, place, and time. Psychiatric: Comments: Suicide ideation No plan Medications Current Outpatient Medications Medication Sig Dispense Refill ??? ARIPiprazole (Abilify) 15 MG tablet Take 1 (one) tablet by mouth once daily Reasons: Manic-Depression 30 tablet 0 ??? xeiytebopdn-ofhyzvinqbwzt-hihglfwoe (Biktarvy) 50-200-25 MG Take 1 (one) tablet by mouth once daily Reasons: HIV Disease 30 tablet 0 ??? hydrOXYzine HCl (Atarax) 50 MG tablet Take 1 (one) tablet by mouth every 6 hours as needed Reasons: Feeling Anxious 30 tablet 1 ??? lidocaine (Lidoderm) 5 % patch Apply 1 (one) patch to skin every 24 hours Apply patch to most painful area and remove after 12 hours. May reapply a new patch 12 hours later. Reasons: Allodynia 15patch 0 ??? nicotine polacrilex (Nicorette) 2 MG gum Take 1 (one) Each by mouth as needed for Smoking Cessation - Gum should be slowly chewed until a peppery taste emerges, then parked between cheek and gum to facilitate nicotine absorption. - Avoid eating or drinking for 15 minutes before and during chewing gum. Reasons: Nicotine Addiction 30 Each 1 ??? sertraline (Zoloft) 100 MG tablet Take 1 (one) tablet by mouth once daily Reasons: Major Depressive Disorder 30 tablet 0 ??? traZODone (Desyrel) 50 MG tablet Take 1 (one) tablet by mouth nightly as needed for Insomnia Reasons: Major Depressive Disorder, Trouble Sleeping 30 tablet 0 Procedures Procedures Lab/SPO2 Interpretation No results found for this visit on 09/17/23. No orders to display Progress Notes ED Course Clinical Impressions as of 09/17/23 0892 Substance induced mood disorder (CMS-HCC) Bipolar affective disorder, remission status unspecified (CMS-HCC) MDM Differential includes depression, anxiety, substance induced mood disorder, other mood disorder, other Plan for central intake to see Discussed with central intake, plan for outpatient follow-up, agree with plan Resources provided Orders Placed This Encounter ??? URINE DRUG SCREEN IMMUNOASSAY ??? ED BH IP CONSULT TO [facility] INTAKE ??? OLANZapine (disintegrating) (ZyPREXA Zydis) tablet 10 mg Follow-up Information [facility]. Specialty: Emergency Room Why: If symptoms worsen Contact information: [id number] [facility] [address] TECHNIC MIXER * Aimee Dunham RN - 09/17/2023 6:58 PM CST Patient dressed in blue paper scrubs.Security called for evaluation TECHNIC MIXER * Meche Rodriges RN - 09/17/2023 6:37 PM CST Pt c/o SI w/ plan to cut himself TECHNIC MIXER documented in this encounter Miscellaneous Notes * Clinical References AVS - Roma López MD - 09/17/2023 8:34 PM PYROTECHNIC MIXER [id number] Bipolar Disorder Bipolar disorder is a serious, life-altering illness. It causes strong mood swings between depression and natividad. It used to be called manic depression. The mood swings are different from the normal ups and downs people have in their lives. They are more severe and last longer. They can seriously interfere with work and relationships. These episodes are changes from usual moods and behavior. They can be mild, or drastic and explosive. The time between feelings of depression and natividad varies with each person. It can be weeks, month, or even years. ?? In a manic episode, you may think fast and do things quickly. It may seem like you are getting alot done. It may feel very good at first. But in the extreme, natividad can lead to a lifestyle that isdisorganized and chaotic. You may take part in risky behavior. Examples are spending sprees, sexualacting-out, or drug use. In later stages, you may have no interest in food. You may not be able to sleep for days at a time. Your speech may speed up and become hard to understand. You may appear to others as if you are in your own world. ?? In a depressive episode, you may feel a lack of interest in normal activities. Sometimes you feel sadness or guilt without any clear reason. Your thinking may become slow. You may also lack energyor good concentration, or feel hopeless. Some people have thoughts of harming themselves at this stage. Thoughts can even turn to suicide. You may feel OK between these phases. This does not mean that the illness is gone. People with thisdisorder will often have to treat it all their life. Correct use of medicines and ongoing medical and mental health support can greatly ease symptoms. They can enhance your quality of life. The exact cause of bipolar disorder is unknown. But there is a genetic link that makes a person more likely to get it. Using illegal drugs such as speed (amphetamine) and cocaine raises a person's risk for this illness. Home care Here is what you can do at home: ?? Ongoing care and support can help you manage this disease. Find a healthcare provider and therapist who meet your needs. Seek help right away when you feel like you may be heading into either a manic episode or a depressive state. ?? Take your medicine as prescribed. Get regular blood work to check the levels of medicine in yourbody. Do this even if you think you don?t need to do it. ?? Don't change or stop taking your medicine unless your healthcare provider says it is OK to do so. Don't share or use another person's medicines. ?? Tell all your healthcare providers about all the prescriptions, zezk-tgy-lcomlel medicines, and supplements you take. Certain supplements interact with medicines. They may cause dangerous side effects. You can also ask your pharmacist about medicine interactions before starting any new medicine or supplement. ?? Talk with your family and trusted friends about your thoughts and feelings. Ask them to help younotice behavior changes early. You can then get help and have your medicines adjusted, if needed. When you are feeling well, make a management plan for a trusted friend or family member to help youduring hard times. For example, you can ask them to hold your credit cards for you if you overspendduring a natividad. Or they can get emergency help for you if your depression leads to suicidal thoughts. If your illness is severe, consider giving trusted people access to your healthcare providers. They can then work together to keep you safe. ?? Don't drink alcohol or use illegal drugs. They can bring on an episode and make it worse. ?? If your life is severely affected by this illness, the Americans with Disabilities Act (ADA) mayprovide help. The ADA protects people with chronic physical and mental health problems. Contact your local ADA office for help if you are having trouble keeping jobs, managing workplace issues, or caring for yourself because of your bipolar disorder. The U.[place]. Department of Justice has a toll-free ADA information line at 430-706-6133 (voice) or 721-086-4968 (TTY). It can help you find a local office. Or go to www.ada.gov for more information. ?? Join an in-person or virtual support group for people with mental health problems. Follow-up care Follow up with your healthcare provider or therapist as advised. They can help you find ways to improve your life. Call or text 988 When you call or text 988, you will be connected to trained crisis counselors at the Suicide Prevention Lifeline. An online chat option is also available. Lifeline is free and available 12/02. 988 counselors will work closely with 911 to get you the care you need. Call or text 988 if you have: ?? Suicidal thoughts, a plan to harm yourself, and the means to do so ?? Serious thoughts of hurting someone else ?? Trouble breathing ?? Confusion ?? Drowsiness or trouble wakening ?? Fainting or loss of consciousness ?? Rapid heart rate, very low heart rate, or a new irregular heart rate ?? Seizure ?? New chest pain that becomes more severe, lasts longer, or spreads into your shoulder, arm, neck,jaw, or back When to seek medical advice Call your healthcare provider right away if any of these happen: ?? Feeling like your symptoms are getting worse (depression, agitation, or excessive energy) ?? Not eating or sleeping for more than 48 hours ?? Feeling out of control (racing thoughts, paranoid thoughts, hallucinations, or poor concentration) ?? Feeling like you want to harm yourself or another ?? Being unable to care for yourself Last Reviewed Date: 2022 ?? 1591-0943 [employer]. All rights reserved. This information is not intended as a substitute for professional medical care. Always follow your healthcare professional's instructions. TECHNIC MIXER documented in this encounter Plan of Treatment Not on file documented as of this encounter Visit Diagnoses Diagnosis Substance induced mood disorder (HCC) Drug-induced mood disorder Bipolar affective disorder, remission status unspecified (HCC) documented in this encounter Administered Medications Inactive Administered Medications - up to 3 most recent administrations Medication Order MAR Action Action Date Dose Rate Site OLANZapine (disintegrating) (ZyPREXA Zydis) tablet 10 mg 10 mg, Oral, NOW, 1 dose, On 09/17/23 at 1930 $ Given 09/17/2023 8:00 PM PYROTECHNIC MIXER 10 mg documented in this encounter Active and Recently Administered Medications Times are shown in PYROTECHNIC MIXER. Scheduled Medication Order 09/15/2023 09/16/2023 09/17/2023 OLANZapine (disintegrating) (ZyPREXA Zydis) tablet 10 mg (COMPLETED) 10 mg, Oral, NOW, 1 dose, On Sun09/17/23 at 1930 2000 ($ Given - Prov ider: Caterina Nevarez, Graduate Nurse) documented in this encounter Care Teams Tubing Machine Tender Relationship Specialty Start Date End Date Unknown, Provider PCP - General 09/17/23 02/02/24 documented as of this encounter
--- OUTSIDE RECORDS SUMMARY | 2024-08-10 03:29 | XMS_ITS | Encounter Summary ---
Author Organization [facility] Address [address] [address] [facility] [address] [facility] [place] [address] Care Team Providers Care Inspector Machined Parts Name Role Phone None, Physician Primary Care Provider Unavailabl e Reason for Visit * Reason Comments Establish Care Inguinal Hernia Encounter Details Date Type Department Care Team (Late st Contact Info) Description 04/04/2023 10:45 AM CDT Office Visit [facility] Medical [facility] - General Surgery [address] [place] [address] Natividad Blair MD [address] [facility] [address] [place] [address] Inguinal hernia without obstruction or gangrene, recurrence not specified, unspecified laterality (Primary Dx) Social History Tobacco Use Types [...] Sign Reading Time Taken Comments Blood Pressure 108/64 04/04/2023 10:55 AM CDT Pulse 48 04/04/2023 10:55 AM CDT Temperature - - Respiratory Rate 18 04/04/2023 10:55 AM CDT Oxygen Saturation - - Inhaled Oxygen Concentration - - Weight 75.3 kg (166 lb) 04/04/2023 10:55 AM CDT Height 182.9 cm (6' 0.01 ) 04/04/2023 10:55 AM C DT Body Mass Index 22.51 04/04/2023 10:55 AM CDT documented in this encounter Patient Instructions * Patient Instructions* Caterina Benoit - 04/04/2023 11:[address] Natividad Blair M.D. [address] [facility] OFFICE:[phone], FAX: [phone] SURGICAL INSTRUCTION SHEET Phil Chase Jr. HAS BEEN SCHEDULED FOR SURGERY AT [address] ON: 04/13/23 YOU WILL NEED TO ARRIVE AT THE MAIN REGISTRATION DESK (1ST FLOOR) AT 7AM YOUR SURGICAL PROCEDURE WILL BEGIN AT APPROXIMATELY 9AM PREPARATION FOR YOUR SURGERY DO NOT DRIVE YOURSELF TO THE PROCEDURE! HAVE A RIDE ARRANGED NOTHING TO EAT OR DRINK ( INCLUDING WATER) AFTER MIDNIGHT THE NIGHT BEFORE. (NO GUM, MINTS OR CIGARETTES) STOP TAKING ASPIRIN PRODUCTS 5 DAYS PRIOR TO SURGERY A NURSE THAT WORKS IN THE OPERATING ROOM AND WITH THE ANESTHESIOLOGIST WILL CONTACT YOU APPROXIMATELY 1 DAY PRIOR TO SURGERY TO REVIEW YOUR MEDICATIONS AND HEALTH HISTORY. SHE WILL TELL YOU WHICH OF YOUR MORNING MEDICATIONS TO TAKE THE MORNING OF YOUR SURGERY. PLEASE LEAVE ANY VALUABLES, JEWELRY, WATCHES, ETC. AT HOME. YOU CAN NOT WEAR THEM IN THE OPERATING ROOM AND WE DO NOT WANT TO RISK LOSING THEM! WE ALSO RECOMMEND YOU SHOWER WITH AN ANTIBACTERIAL SOAP SUCH DIAL THE DAY OF YOUR SURGERY TO CUTDOWN ON ANY BACTERIA ON YOUR SKIN. As part of our mission to provide exceptional care to you, it is very important to follow up in theoffice after your surgery. Your postop visit is scheduled on: 04/30/23 @ 1:30PM IF YOU HAVE ANY QUESTIONS PLEASE CONTACT THE OFFICE AT [phone] HAVE A GREAT DAY AND THANK YOU FOR CHOOSING [facility]! Caterina Abrams If your employer requires FMLA (Family Medical Leave Act) paperwork completed for your time off work, you may fax, mail or drop the forms off. Please make sure you complete your portion of the paperwork. These forms will be filled out within 48 hours of your scheduled surgery. A completed copy of the form will be mailed to you. This is just a copy for your records with no action required, unless form specifically states otherwise. As always, call with any questions to [phone]. POST-OP INSTRUCTIONS As you leave the hospital, there are some things to remember and a few to watch out for to make your recovery as smooth as possible. MEDS Pain medication does not agree with everyone. Do not take pain medication on an empty stomach and NEVER take more than the recommended dose. Pain medications can also cause constipation. If you experience constipation or choose not to use pain medications, you can try Advil or Tylenol. If your prescription pain medication is not working or lasting long enough, you may take ibuprofen (Advil, Motrin) 200-600mg as often as every six hours, along with or in between your prescription medication. If naproxen (Aleve) works better for you than ibuprofen, you may take 1-2 tablets as oftenas every 12 hours, along with or in between your prescriptions pain CONSTIPATION Constipation is common after surgery. Pain medication can contribute to this. If you do not have a bowel movement by post op day 2, begin taking 2 tablespoons Milk of Magnesia every 6 hours. You may take this for up to 24 hours. If you take this medication and it does not work within 48 hours, callour office for further instructions. SHOWERING You may shower 24 hours after coming home, unless otherwise instructed. Leave the incisions uncovered and pat dry. INCISION CARE Keep incisions clean and dry. It is normal to have a small amount of clear drainage. If they are draining, keep the incisions covered until drainage stops. If glue was used on your incisions, do not peel it off. It will fall off on its own or the doctor will remove at the post op visit. If drainagebecomes thick, yellow or bloody, call our office. DIET Eat a light diet the first day home. (i.e. soup, jello, toast) If you experience nausea/vomiting, stay on fluids low in acid (water, sports drinks, and clear sodas) If no nausea/vomiting return to normal diet. ACTIVITY You should not return to normal activities, including work until released by the doctor. Please avoid tobacco and alcohol. Also do not drive for 3 days following surgery or until released by doctor. CALL YOUR DOCTOR IMMEDIATELY IF YOU: ARE UNABLE TO URINATE HAVE A FEVER OVER 100.4F INCISIONS ARE RED AND WARM TO THE TOUCH HAVE CONTINUOUS VOMITING SEVERE ABDOMINAL PAIN EXPERIENCE SWELLING IN ARMS OR LEGS ALWAYS IF YOU ARE UNSURE OR HAVE QUESTIONS PLEASE CALL THE OFFICE: [phone] option 1 documented in this encounter Progress Notes * Natividad Blair MD - 04/04/2023 10:45 AM CDT Images from the original note were not included. Date of Encounter: 04/04/2023 Referring Physician: Physician Phyllis Chief Complaint: I am seeing Phil Chase Jr. in consultation for a right inguinal hernia [...] Outpatient Medications Medication Sig Dispense Refill ??? aqsgpuetaec-yoqfmnykyxgul-ztidalaga (Biktarvy) 50-200-25 MG Take 1 (one) tablet by mouth once daily 30 tablet 2 ??? qwzkpjioren-nsetefkwqyupo-fmhffebnb (Biktarvy) 50-200-25 MG Take 1 (one) tablet [...] capsule 100 mg 100 mg Oral Once Mee Blake, DO Past Medical History: Diagnosis Date ??? Human immunodeficiency virus (HIV) disease ([facility]/HCC) Past Surgical History: Procedure Laterality Date ??? [...] AST, TBIL, TPROT, EGFR in the last 73049 hours. Assessment / Plan: Phil Chase Jr. [...] have post opdrain to reduce seroma -CPT 13196 open incarcerated inguinal hernia repair -Surgery scheduled for Apr 13 -The following pre op testing was ordered: none -Excellent functional status (>4 METS without any symptoms), no need for any pre operative cardiac work up Natividad Blair MD 04/04/2023 11:02 AM Natividad Blair MD General Surgeon, [facility] Pager [phone] Office/Answering Service [phone] documented in this encounter Miscellaneous Notes * Addendum Note - Brandee Houston - 04/17/2023 8:13 AM CDTAddended by: BRANDEE HOUSTON on: 04/17/2023 08:13 AM Modules accepted: Level of Service documented in this encounter Plan of Treatment Not on file documented as of this encounter Visit Diagnoses Diagnosis Inguinal hernia without obstruction or gangrene, recurrence not specified, unspecified laterality- Primary documented in this encounter Care Teams Inspector Machined Parts Relationship Specialty Start Date End Date None, Physician [address] [place] [address] PCP - General 12/19/22 09/16/23 documented as of this encounter
--- OUTSIDE RECORDS SUMMARY | 2024-08-10 03:29 | XMS_ITS | Encounter Summary ---
Author Organization [facility] Address [address] [place] [address] Care Team Providers Care Last Picker Name Role Phone None, Physician Primary Care Provider Unavailabl e Encounter Details Date Type Department Care Team (Latest Contact Info) Description 06/12/2023 Travel Social History Tobacco Use Types Packs/Day Years Used Date Smoking Tobacco: Every Day Cigarettes Smokeless Tobacco: Never Comments:Vape several times a day Alcohol Use Standard Drinks/Week Comments Yes 0 (1 standard drink = 0.6 oz pure alcohol) Currenltly 1/5 on weekends, some during the week the past 2 weeks AUDIT-C Answer Date Recorded Q1: How often do you have a drink containing alc ohol? 2-3 times a week 06/12/2023 Q2: How many drinks containi ng alcohol do you have on a typical day when you are drinking? 5 or 6 06/12/2023 Q3: How often do you have si x or more drinks on one occasion? Weekly 06/12/2023 Overall Financial Resource Strain (CARDIA) Answe r Date Recorded How hard is it for you to pa y for the very basics like food, housing, medical care, and heating? Somewhat hard 06/13/2023 PHQ-2 Answer Date Recorded Patient Health Questionnaire-2 Score 5 06/12/2023 [facility] - Occupational Stress [...] money to buy more. Never true 06/13/20 Within the past 12 months, t he [...] place to sleep or slept in a usp (including now)? Yes 06/13/2023 Sex and Gender Information Value Date Recorded Sex Assigned at Not on file Gender Identity Not on file Sexual Orientation Not on file documented as of this encounter Plan of Treatment Not on file documented as of this encounter Visit Diagnoses Not on filedocumented in this encounter Care Teams Last Picker Relationship Specialty Start Date End Date None, Physician [address] [place] [address] PCP - General 12/19/22 09/16/23 documented as of this encounter
--- OUTSIDE RECORDS SUMMARY | 2024-08-10 03:29 | XMS_ITS | Encounter Summary ---
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 Attempt (Lifetime): No Preparatory Acts or Behavior (Lifetime): Yes Total Number of Preparatory Acts (Lifetime): 4 Preparatory Acts or Behavior Description (Lifetime): collected pills, a razor blade and a gun Preparatory Acts or Behavior (Past 3 Months): Yes Total Number of Preparatory Acts (Past 3 Months): 2 Preparatory Acts or Behavior Description (Past 3 Months): Collected pills and a razor blade Actual/Potential Lethality (Most Recent Attempt) Most Recent Attempt Date: 12/23/23 Actual Lethality/Medical Damage Code (Most Recent Attempt): Moderate physical damage, medical attention needed Potential Lethality Code (Most Recent Attempt): Behavior likely to result in injury but not likely to cause Actual/Potential Lethality (Most Lethal Attempt) Most Lethal Attempt Date: 04/28/20 Actual Lethality/Medical Damage Code (Most Lethal Attempt): No physical damage or very minor physical damage Potential Lethality Code (Most Lethal Attempt): Behavior likely to result in despite available medical care Actual/Potential Lethality (Initial/First Attempt) Initial/First Attempt Date: 04/28/20 Actual Lethality/Medical Damage Code (Initial/First Attempt): No physical damage or very minor physical damage Potential Lethality Code (Initial/First Attempt): Behavior likely [...] No Mental Status Symptoms Delusions: Denies Hallucinations: Auditory;Visual Hallucination symptom severity: Increased severity/frequency (When under the influence of meth, experience VH; see people) Alcohol Use Screening: Alcohol Use Screening (AUDIT-C) Q1: How often do you have a drink containing alcohol?: 2-3 times a week Q2: How many drinks containing alcohol do you have on a typical day when you are drinking?: 5 or 6 Q3: How often do you have six or more drinks on one occasion?: Weekly Total Score: 8 Substance Use Screening: Substance Use Drug/Alcohol History in the last 12 months?: Amphetamine/Amphetamine Like;Alcohol Any problems due to past alcohol/substance use?: Job Loss;Loss of family support;Estranged from family members;Attempted suicide Withdrawal History: (Denies) Substance Use Disorder Behaviors: Increased Tolerance;Relief Drinking;Minimizes Usage Addictive Behaviors: None List family member relationship and addictive behaviors : None What impact does spirituality and/or taoist have on your life including recovery?: Help me to seethings more clearly Alcohol Alcohol Type: Candida Alcohol Amount: Takes 5-6 shots Alcohol Frequency/Patterns of Use: 2-3times week on weekend Method of acquiring alcohol: Purchase Alcohol Duration/Age of Onset: Age 16 Alcohol Last Use: 12/22/23 Amphetamine or Amphetamine Like Amphetamine Type: Crystal Amphetamine Route: Smoke Amphetamine Amount: 1 gram Amphetamine Frequency/Patterns of Use: 5 out of 7 days a week Method of acquiring amphetamines: Purchase off the street Amphetamine Duration/Age of Onset: Age 23 Amphetamine Last Use: 12/23/23 Past Addiction Treatment: Past Addiction Treatment Past Addiction Treatment: Yes Name of Facility and Dates of Treatment: [facility]; currently recieving treatment Response to treatment: [employer]enan charles job loss one week ago Relapse History: one week ago Mental Status Exam: Mental Status Communication Barriers: Inconsisently Understands;Slurred speech;Difficult to understand;Poor articulation of thought content Orientation: No impairment Cognition: Attention/Concentration - Decreased;Follows Commands- Inconsistent;Judgment - Decreased;Processing-Delayed;Safety Awareness - Decreased Insight: Poor Mood/Affect: Calm;Hopeless;Helpless;Anxious Behavior: Cooperative;Poor eye contact;Restless;Lethargic;Psychomotor retardation Mental Health: Mental Health Stressors: Addictions;Chronic Mental Illness;Financial;Medical;Work (Loss of job, HIV status, drug addition, lack of family support) Symptoms most bothersome to patient:: Stress;Low Moods Has there been anything in the past that helped patient deal with conflict, stress or presenting problem?: Individual therapy;Support from others Past psychiatric hospitalizations: Yes Most recent discharge?: 2023 How Many?: 6 Where?: [facility] Outpatient follow up after discharge: Yes Trauma [...] have a history of self-injury?: Yes Method: Cutting When last done: last week Are you currently having thoughts of self-injury?: Yes Method: Desires to cut Do you intend on acting on these thoughts?: Yes (Yes; plans to cut wrist with the intent to comit suicide) Do you have guns/weapons available to you?: No [facility] Work assessment of medications, sleep, appetite, and treatment: [facility] Assessment meds, sleep, appetite, tx Do you currently have an outpatient psychiatric provider?: Yes If yes, when was your last appointment: Dr. Gruber Have you been prescribed medication for mental health in the past?: Yes If yes, what past medications?: Zoloft, Abilify, Atarax Are you currently being prescribed medication for mental health?: Yes If yes, what current medications?: Zoloft, Abilify and Atarax Are you taking your mental health medications as prescribed?: Yes Do you have any concerns about your medications?: No Is it hard to get a good night's sleep, are you tired and sleeping too much?: Alot If sleep changes, describe: Difficulty staying awake through the day How many hours of sleep are you getting per day?: 7 hours Have you lost your appetite or do you overeat compulsively?: A lot If appetite changes, describe: Increased appetite;Significant weight gain (Has gained 15 lbs in a [facility]) Social Support: Social Support Marriages or other committed relationships:: Never Issues in current relationships:: Denies Current Support System: Friends Who is the primary home health care physician?: Self Is the patient currently caring for or responsible for the care of someone else?: No Pets: None Legal Guardian: Not Applicable Cultural and Mandaeism Beliefs Impacting Healthcare: Cultural and Mandaeism Beliefs Impacting Healthcare Are there cultural, mormon, spiritual, emotional, financial and/or special needs that may affectyour care?: No Does anyone help support you in making healthcare decisions?: No Housing & Transportation: Housing/Transportation Type of Residence: Nursing Home (recovery home) Residence/Facility Name: [facility] Lives with:: Nursing Home Requires assistance with:: None Physical Limitations: None Transportation Needs: Friends Community Resources: Community Resources Community Resources currently in use?: Yes Community Resources Details: [facility] Community Resources - Contact Information: [facility] Leisure Activities: Leisure Activities Initiate activites with friends/relatives?: No What type of leisure activity do you engage in &/or enjoy?: None What is the duration of your leisure activities?: Less than 30 minutes What is the frequency of your leisure activites?: Other (Comment) (denies) Did you recently discontinue your leisure activites?: Yes Why did you discontinue leisure activites?: Loss of Interest Is there a desire to begin/continue leisure activities?: No Identify client's needs and strengths related to: mental illness, relapse prevention, coping skills, crisis stabilization: Support system includes [facility] and sober friends Social/Leisure Barriers : Lack of interest Employment, Finances, and Insurance: Employment/Finances/Insurance Work History: 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 Little interest or pleasure in doing things: Several days Feeling down, depressed, or hopeless: More than half the days Patient Health Questionnaire-2 Score: 3 PHQ-9: (If applicable) Over the past 2 weeks, how often have you been bothered by any of the following problems? Trouble falling or staying asleep, or sleeping too much: Several days Feeling tired or having little energy: More than half the days Poor appetite or overeating: Nearly every day Feeling bad about yourself - or that you are a failure or have let yourself or your family down: More than half the days Trouble concentrating on things, such as reading the newspaper or watching television: Not at all Moving or speaking so slowly that other people could have noticed? Or the opposite - being so fidgety or restless that you have been moving around a lot more than usual.: Not at all Thoughts that you would be better off or hurting yourself in some way: Nearly every day Patient Health Questionnaire-9 Score: 14 Provisional Diagnosis: F31.9 Bipolar Disorder, Unspecified Patient was evaluated by Sheyla Flores Behavioral Health Intake Therapist via [employer]. The Behavioral Health Evaluation and the Calculated C-SSRS Risk Score (Lifetime/Recent): High Risk, was presented to Pranav Cr NP (Psychiatric Provider) at 1649(time). The disposition and C-SSRS RiskScore (Lifetime/Recent) was presented to Dr. Romy Alonso (ED Provider) at 6(time). Pranav Cr NP (Psychiatric Provider) determined the patient does meet Inpatient criteria for M Behavioral Health services, due to patient presenting as high risk for imminent harm to self. Pranav Cr NP (Psychiatric Provider) recommends that the patient be admitted voluntarily pending medical clearance. Notes: Time of Initial contact attempt with Psychiatric Provider: 1648 Time disposition was received from Psychiatric Provider: [id number] * Sheyla Palacios - 12/23/2023 4:47 PM CDT Patient disclosed during [facility] assessment that he overdosed on 14 Xanax pills earlier today in an attempt to complete suicide. Reported patient disclosure to attending nurse, Amira, who stated that she would informed the ED physician. documented in this encounter ED Notes * Herman Bravo MD - 12/24/2023 7:07 AM CDT 6:00 a.m. Patient signed out to me by Dr. Stanton pending psychiatric evaluation and disposition. 2:00 p.m. Patient signed out to Dr. Bone pending psychiatric admission. ICD-10-CM 1. Intentional overdose, initial encounter ([facility]) T50.902A EKG 12-LEAD * Keri Stanton MD - 12/24/2023 5:01 AM CDT Emergency Department Assumed Care Note Patient signed out to me by Dr Norton. Please see their note for details. Briefly, Phil Chase Jr. is a 28 year old male is being evaluated for intentional overdose, suicidal ideations. [id number] patient signed out to oncoming provider pending inpatient behavioral health bed placement No data found. Labs Reviewed CBC W AUTO DIFFERENTIAL - Abnormal; Notable for the following components: Result Value WBC 3.5 (*) MCH 26.2 (*) Neutrophil % 37.0 (*) Monocyte % 11.8 (*) Neutrophil Absolute 1.29 (*) All other components within normal limits COMPREHENSIVE METABOLIC PANEL - Abnormal; Notable for the following components: Sodium 135 (*) CO2 21 (*) All other components within normal limits SALICYLATE LEVEL BLOOD - Abnormal; Notable for the following components: Salicylate <5.0 (*) All other components within normal limits ACETAMINOPHEN LEVEL - Abnormal; Notable for the following components: Acetaminophen <3.0 (*) All other components within normal limits Narrative: [facility] ACETAMINOPHEN COMMENT Critical values: 4 Hours Post Ingestion: Critical value > 200 ??g/mL 12 Hours Post Ingestion: Critical value > 50 ??g/mL For acute ingestion, please refer to [...] may alter the peak level. Contact the [facility] at or reserved for healthcare professionals to assist you in evaluatingpotentially toxic acetaminophen levels. ALCOHOL ETHYL BLOOD - Normal Narrative: Ethanol Interp <10: None Detected Depression of [...] not equal a MICHAELLE for legal purposes. DRUG ABUSE URINE PANEL No orders to display Medications - No data to display ICD-10-CM 1. Intentional overdose, initial encounter ([facility]) T50.902A EKG 12-LEAD Disposition: ED Disposition None Keri Stanton MD 12/24/2023 5:01 AM * Margoth Pascal RN - 12/23/2023 9:09 PM CDT Jayshree gave report on this pt. Pt was able to ambulate to his bed but it was noted the nurse needed to guide him to his bed. * Jayshree Pelayo RN - 12/23/2023 7:42 PM CDT Report taken at this time. Pt laying in bed eating a sandwich. Pt calm and cooperative at this time. * Amira Chambers RN - 12/23/2023 4:00 PM CDT Pt being skyed assessed by [facility] at this time. * Romy Alonso MD - 12/23/2023 2:58 PM CDT EMERGENCY DEPARTMENT NOTE 12/23/2023 CC: SUICIDAL HPI: Phil Chase Jr. is a 28 year old male with past medical history of HIV on anti-retroviral therapy presenting for evaluation of suicidal ideation with plan to overdose on benzodiazepine. He states he has been suicidal for 1 day. He identifies an exacerbating factor as his methamphetamine use. He states he last used methamphetamine yesterday. He reports adherence to his Biktarvy. He denies homicidal ideation, auditory or visual hallucinations. Chart History: Past Medical History: Diagnosis Date Human immunodeficiency virus (HIV) disease ([facility]) Past Surgical History: Procedure Laterality Date HERNIA REPAIR, INGUINAL Right 04/13/2023 Right; REPAIR RIGHT INGUINAL HERNIA WITH MESH (OPEN ) Lumbar Laminectomy No current facility-administered medications for this encounter. Current Outpatient Medications Medication Sig Dispense Refill ARIPiprazole (Abilify) 15 MG tablet Take 1 (one) tablet by mouth once daily Reasons: Manic-Depression 30 tablet 0 acnbmtvsrbp-brrguoqcglitt-fvrvjakpf (Biktarvy) 50-200-25 MG Take 1 (one) tablet by mouth once dailyReasons: HIV Disease 30 tablet 0 hydrOXYzine HCl (Atarax) 25 MG tablet Take 1 (one) tablet by mouth every 4 hours as needed sertraline (Zoloft) 100 MG tablet Take 1 (one) tablet by mouth once daily Reasons: Major DepressiveDisorder 30 tablet 0 traZODone (Desyrel) 50 MG tablet Take 1 (one) tablet by mouth nightly as needed for Insomnia Reasons: Major Depressive Disorder, Trouble Sleeping 30 tablet 0 Facility-Administered Medications Ordered in Other Encounters Medication Dose Route Frequency Provider Last Rate Last Admin celecoxib (CeleBREX) capsule 100 mg 100 mg Oral Once Mee Blake, DO No Known Allergies PCP: Provider Unknown Vital Signs: BP 137/87 (BP Location: Right arm, Patient Position: Sitting) Pulse 105 Temp 97.5 ??F (36.4 ??C) (Oral) Resp 18 Ht 1.829 m (6') Wt 85.7 kg (189 lb) SpO2 96% Pertinent Physical Exam Findings: Constitutional: No acute distress Eyes: EOMI, conjunctiva white HENT: MMM, neck supple without meningismus CV: RRR Resp: No respiratory distress on RA GI: Abd is soft, non-distended MSK: No deformities Skin: Warm, dry Neuro: Alert Psych: Appropriate mood and affect Labs Reviewed CBC W AUTO DIFFERENTIAL - Abnormal; Notable for the following components: Result Value WBC 3.5 (*) MCH 26.2 (*) Neutrophil % 37.0 (*) Monocyte % 11.8 (*) Neutrophil Absolute 1.29 (*) All other components within normal limits COMPREHENSIVE METABOLIC PANEL - Abnormal; Notable for the following components: Sodium 135 (*) CO2 21 (*) All other components within normal limits SALICYLATE LEVEL BLOOD - Abnormal; Notable for the following components: Salicylate <5.0 (*) All other components within normal limits ACETAMINOPHEN LEVEL - Abnormal; Notable for the following components: Acetaminophen <3.0 (*) All other components within normal limits Narrative: [facility] ACETAMINOPHEN COMMENT Critical values: 4 Hours Post Ingestion: Critical value > 200 ??g/mL 12 Hours Post Ingestion: Critical value > 50 ??g/mL For acute ingestion, please refer to [...] may alter the peak level. Contact the [facility] at or reserved for healthcare professionals to assist you in evaluatingpotentially toxic acetaminophen levels. ALCOHOL ETHYL BLOOD - Normal Narrative: Ethanol Interp <10: None Detected Depression of [...] not equal a MICHAELLE for legal purposes. DRUG ABUSE URINE PANEL No orders to display Medications - No data to display MDM: This is a 28-year-old male with past medical history of HIV and methamphetamine use presenting for evaluation of suicidal ideation with plan overdose on Ativan. To me, he denied suicide attempt. However, to the machine stripper, he stated that he tried to overdose on Ativan prior to arrival. EKG reviewed and interpreted by me: Sinus bradycardia, normal axis, normal intervals, benign early repolarization. Labs reviewed by me and overall reassuring including undetectable acetaminophen and salicylate levels. The patient was medically clear for [facility] evaluation. I spoke with [facility], who tells me they intend to admit the patient voluntarily for further evaluation and management. Assessment/Diagnosis and Plan: ICD-10-CM 1. Intentional overdose, initial encounter ([facility]) T50.902A EKG 12-LEAD * Amira Chambers RN - 12/23/2023 2:53 PM CDT Pt to ED for c/o feeling suicidal. Pt states plan is to OD on all his pills. Pt alert and orient x 4. Able to make needs known. Appears to be under the influence of some substance. Pt states he last used Meth yesterday. Pt alert and orient X 4. Able to make needs known. Resp even non labord. No apparent distress noted. Pt changed into blue scrubs. Continuous sitter monitoring in place. Will continue to monitor for changes. * Gucci Clarke, VICTOR MANUEL - 12/23/2023 2:45 PM CDT Bed: L2B Expected date: Expected time: Means of arrival: Comments: WR documented in this encounter Plan of Treatment Not on file documented as of this encounter Procedures Procedure Name Priority Date/Time Associated Diagnosis Comments CARDIAC EKG ORDER 12/24/2023 8:5 4 PM CDT EKG 12-LEAD STAT 12/23/2023 5:22 PM CDT Intentional overdose, initial encounter ([facility]) CBC W AUTO DIFFERENTIAL STAT 12/23/2023 5:22 PM CDT COMPREHENSIVE METABOLIC PANEL STAT 12/23/2023 5:22 PM CDT ALCOHOL ETHYL BLOOD STAT 12/23/2023 5 :22 PM CDT SALICYLATE LEVEL BLOOD STAT 5:22 PM CDT ACETAMINOPHEN LEVEL STAT 12/23/2023 5 :22 PM CDT documented in this encounter Results * CARDIAC EKG ORDER (12/24/2023 8:54 PM CDT) Narrative 12/24/2023 8:54 PM CDT Ordered by an unspecified provider. Scanned Document CARDIAC SERVICES ORD ERABLES * EKG 12-LEAD (12/23/2023 5:22 PM CDT) Ventricular Rate 59 BPM [facility] Atrial Rate 59 BPM [facility] P-R Interval 170 ms [facility] QRS Duration ms 98 ms [facility] Q-T Interval ms 440 ms [facility] QTC Calculation (Bezet) 435 ms [facility] Calculated P Antelope 55 degrees [facility] Calculated R Antelope 76 degrees [facility] Calculated T Antelope 48 degrees [facility] Interpretation EKG Sinus bradycardia with sinus arrhythmia ST elevation, consider early repolarization Borderline ECG No previous ECGs available Confirmed by MOLINA ALLEN MD ([id number]) on 12/24/2023 12:37:38 PM [facility] 12/23/2023 5:22 PM CDT 12/24/2023 12:37 PM CDT Romy Aolnso MD ECG ORDERABLES [facility] * ALCOHOL ETHYL BLOOD (12/23/2023 5:22 PM CDT) Ethanol <10.0 <10 mg/dL 12/23/2023 5:47 PM CDT [facility] Ethanol Calculated <0.010 <=0.100 gm/dL 12/23/2023 5:47 PM CDT [facility] Blood BLOOD SPECIMEN / Unknown Venipuncture / Unknown 12/23/2023 5:22 PM CDT 12/23/2023 5:23 PM CDT Narrative [facility] - 12/23/2023 5:47 PM CDT Ethanol Interp <10: None Detected [...] not equal a MICHAELLE for legal purposes. Romy Alonso MD LAB - CHEMISTRY AMANDA MELENDREZ Performing Organization Address [facility] de Phone Number [facility] [address] [place], [place] [id number] * (ABNORMAL) ACETAMINOPHEN LEVEL (12/23/2023 5:22 PM CDT) Acetaminophen <3.0(L) 10.0 - 30.0 ug/mL 12/23/2023 5:47 PM CDT [facility] Blood BLOOD SPECIMEN / Unknown Venipuncture / Unknown 12/23/2023 5:22 PM CDT 12/23/2023 5:23 PM CDT Narrative [facility] - 12/23/2023 5:47 PM CDT [facility] ACETAMINOPHEN COMMENT Critical values: [...] may alter the peak level. Contact the [facility] at or reserved for healthcare professionals to assist you in evaluating potentially toxic acetaminophen levels. Romy Alonso MD LAB - CHEMISTRY AMANDA MELENDREZ Performing Organization Address [facility] de Phone Number [facility] [address] [place] [address] * (ABNORMAL) SALICYLATE LEVEL BLOOD (12/23/2023 5:22 PM CDT) Salicylate <5.0(L) 15.0 - 30.0 mg/dL 12/23/2023 5:47 PM CDT [facility] Blood BLOOD SPECIMEN / Unknown Venipuncture / Unknown 12/23/2023 5:22 PM CDT 12/23/2023 5:23 PM CDT Romy Alonso MD LAB - CHEMISTRY AMANDA MELENDREZ [facility] Organization Address City/State/ZIP Co de Phone Number [facility] [address] [place] [address] * (ABNORMAL) COMPREHENSIVE METABOLIC PANEL (12/23/2023 5:22 PM CDT) Glucose 74 70 - 105 mg/dL 12/23/2023 5:47 PM CDT [facility] Sodium 135(L) 136 - 145 mmol/L 12/23/2023 5:47 PM CDT [facility] Potassium 4.2 3.5 - 5.1 mmol/L 12/23/2023 5:47 PM CDT [facility] Chloride 104 98 - 107 mmol/L 12/23/2023 5:47 PM CDT [facility] CO2 21(L) 22 - 29 mmol/L 12/23/2023 5:47 PM CDT [facility] Calcium 9.0 8.4 - 10.4 mg/dL 12/23/2023 5:47 PM CDT [facility] Anion Gap 10 6 - 16 mmol/L 12/23/2023 5:47 PM CDT [facility] BUN 15 5.3 - 18.7 mg/dL 12/23/2023 5:47 PM CDT [facility] Creatinine 0.91 0.72 - 1.25 mg/dL 12/23/2023 5:47 PM CDT [facility] Alkaline Phosphatase 66 40 - 150 U/L 12/23/2023 5:47 PM CDT [facility] ALT 19 0 - 55 U/L 12/23/2023 5:47 PM CDT [facility] AST 27 5 - 34 U/L 12/23/2023 5:47 PM CDT [facility] Protein Total 8.0 6.4 - 8.3 gm/dL 12/23/2023 5:47 PM CDT [facility] Albumin 3.8 3.4 - 5.0 gm/dL 12/23/2023 5:47 PM CDT [facility] Bilirubin Total 0.3 0.2 - 1.2 mg/dL 12/23/2023 5:47 PM CDT [facility] eGFR by CKD-EPI >90 >=90 mL/min/1.7 3 m2 12/23/2023 5:47 PM CDT [facility] Blood BLOOD SPECIMEN / Unknown Venipuncture / Unknown 12/23/2023 5:22 PM CDT 12/23/2023 5:23 PM CDT Romy Alonso MD LAB - CHEMISTRY AMANDA MELENDREZ [facility] Organization Address City/State/ZIP Co de Phone Number [facility] [address] [place] [address] * (ABNORMAL) CBC W AUTO DIFFERENTIAL (12/23/2023 5:22 PM CDT) WBC 3.5(L) 4.0 - 10.7 x10E9/L 12/23/2023 5:26 PM CDT [facility] RBC Count 5.53 4.30 - 5.80 x10E12/L 12/23/2023 5:26 PM CDT [facility] Hemoglobin 14.5 13.3 - 17.5 g/dL 12/23/2023 5:26 PM CDT [facility] Hematocrit 45.2 38.7 - 51.1 % 12/23/2023 5:26 PM CDT [facility] MCV 81.7 80.0 - 98.0 fL 12/23/2023 5:26 PM CDT [facility] MCH 26.2(L) 26.7 - 33.6 pg 12/23/2023 5:26 PM CDT [facility] MCHC 32.1 31.7 - 36.3 g/dL 12/23/2023 5:26 PM CDT [facility] RDW-CV 14.2 11.3 - 14.8 % 12/23/2023 5:26 PM CDT [facility] Platelet Count 277 150 - 420 x10E9/L 12/23/2023 5:26 PM CDT [facility] MPV 9.6 7.8 - 11.4 fL 12/23/2023 5:26 PM CDT [facility] Neutrophil % 37.0(L) 41.0 - 74.0 % 12/23/2023 5:26 PM CDT [facility] Lymphocyte % 46.0 17.0 - 47.0 % 12/23/2023 5:26 PM CDT [facility] Monocyte % 11.8(H) 3.0 - 11.0 % 12/23/2023 5:26 PM CDT [facility] Eosinophil % 4.3 0.0 - 7.0 % 12/23/2023 5:26 PM CDT [facility] Basophil % 0.9 0.0 - 1.6 % 12/23/2023 5:26 PM CDT [facility] Immature Granulocytes % 0.0 0.0 - 1.0 % 12/23/2023 5:26 PM CDT [facility] Neutrophil Absolute 1.29(L) 1.60 - 7.50 x10E9/L 12/23/2023 5:26 PM CDT [facility] Lymphocyte Absolute 1.60 1.00 - 4.40 x10E9/L 12/23/2023 5:26 PM CDT [facility] Monocyte Absolute 0.41 0.15 - 1.00 x10E9/L 12/23/2023 5:26 PM CDT [facility] Eosinophil Absolute 0.15 0.00 - 0.60 x10E9/L 12/23/2023 5:26 PM CDT [facility] Basophil Absolute 0.03 0.00 - 0.13 x10E9/L 12/23/2023 5:26 PM CDT [facility] Blood BLOOD SPECIMEN / Unknown Venipuncture / Unknown 12/23/2023 5:22 PM CDT 12/23/2023 5:23 PM CDT Romy Alonso MD LAB - HEMATOLOGY ORD ERABLES Performing Organization Address City/State/[facility] Co de Phone Number [facility] [address] [place] [address] documented in this encounter Visit Diagnoses Diagnosis Intentional overdose, initial encounter (HCC) documented in this encounter Administered Medications Inactive Administered Medications - up to 3 most recent administrations Medication Order MAR Action Action Date Dose Rate Site ARIPiprazole (Abilify) tablet 15 mg 15 mg, Oral, DAILY, First dose on Sun12/24/23 at 1000, Until Discontinued $ Given 12/24/2023 1:46 PM CDT 15 mg DULoxetine (Cymbalta) capsule 60 mg 60 mg, Oral, DAILY, First dose on Sun12/24/23 at 1000, Until Discontinued, Capsules can be opened and sprinkled on food/mixed with liquids and should be used within 2 hrs (Do not crush pellets inside capsule) Whole capsules should be swallowed whole and not chewed $ Given 12/24/2023 1:47 PM CDT 60 mg documented in this encounter Active and Recently Administered Medications Times are shown in CDT. Scheduled Medication Order 12/22/2023 12/23/2023 12/24/2023 ARIPiprazole (Abilify) tablet 15 mg 15 mg, Oral, DAILY, First dose on Sun12/24/23 at 1000, Until Discontinued 1239 (Not Administer ed - Provider: Nolan Kathleen RN - Reason: Patient Condition)1346 ($ Given - Provider: Nolan Kathleen RN) DULoxetine (Cymbalta) capsule 60 mg 60 mg, Oral, DAILY, First dose on Sun12/24/23 at 1000, Until Discontinued, Capsules can be opened and sprinkled on food/mixed with liquids and should be used within 2 hrs (Do not crush pellets inside capsule) Whole capsules should be swallowed whole and not chewed 1240 (Not Administer ed - Provider: oNlan Kathleen RN - Reason: Patient Condition)1347 ($ Given - Provider: Nolan Kathleen RN) PRN Medication Order 12/22/2023 12/23/2023 12/24/2023 traZODone (Desyrel) tablet 50 mg 50 mg, Oral, AT BEDTIME PRN, Insomnia, Starting on Sun12/24/23 at 0927, Until Sun12/24/23 at 1851 documented in this encounter Care Teams Cleaning And Washing Equipment Operator Relationship Specialty Start Date End Date Unknown, Provider PCP - General 09/17/23 02/02/24 documented as of this encounter"
--- OUTSIDE RECORDS SUMMARY | 2024-08-10 03:29 | XMS_ITS | Encounter Summary ---
Author Organization [facility] Health Address [address] [place] [address] Care Team Providers Care Trolley Car Overhauler Name Role Phone Geofftatijamila Mady Primary Care Provider Un available Encounter Details Date Type Department Care Team (Latest Contact Info) Description 03/28/2024 Travel Social History Tobacco Use Types Packs/Day [...] Recorded Patient Health Questionnaire-2 Score 6 02/03/2024 [facility] Occup[facility] ional [facility] - Occupational Stress [...] on filedocumented in this encounter Care Teams Trolley Car Overhauler Relationship Specialty Start Date End Date Mady Sullivan PCP - General 02/03/24 documented as of this encounter
--- OUTSIDE RECORDS SUMMARY | 2024-08-10 03:29 | XMS_ITS | Encounter Summary ---
Author Organization [facility] Address [address] [place] [address] Care Team Providers Care Product Expert Name Role Phone None, Physician Primary Care Provider Unavailabl e Reason for Visit * Reason Onset Date Comments Surgical Followup 04/16/2023 Encounter Details Date Type Department Care Team (Late st Contact Info) Description 04/16/2023 Telephone [facility] - General Surgery [address] [place] [address] Natividad Blair MD [address] [place] [address] Surgical Followup Social History Tobacco [...] * Telephone Encounter - Caterina Benoit - 04/16/2023 2:30 PM CDT Patient's mother called to ask when he should have his MAURO drain removed documented in this encounter Plan of Treatment Not on file documented as of this encounter Visit Diagnoses Not on filedocumented in this encounter Care Teams Product Expert Relationship Specialty Start Date End Date None, Physician [facility] [place] [address] PCP - General 12/19/22 09/16/23 documented as of this encounter
--- OUTSIDE RECORDS SUMMARY | 2024-08-10 03:29 | XMS_ITS | Encounter Summary ---
Author Organization [facility] Address [address] [place] [address] Care Team Providers Care Attenuator Name Role Phone None, Physician Primary Care Provider Unavailabl e Reason for Visit * Auth/Cert (Routine) Specialty Diagnoses / Procedures Referred By Ara t Referred To Contact Diagnoses Inguinal hernia without obstruction or gangrene, recurrence not specified, unspecified laterality Inguinal hernia without obstruction or gangrene, recurrence not specified, unspecified laterality [K40.90] Procedures MD RPR 1ST INGUN HRNA AGE 5 YRS/> REDUCIBLE REPAIR INGUINAL HERNIA Referral ID Status Reason Start Date Expiration Date Visits Re quested Visits Authorized [id number] 1 1 Encounter Details Date Type Department Care Team (Late st Contact Info) Description 04/13/2023 8:54 AM CDT Anesthesia Event [facility] [address] [place] [address] Ezra Aguirre MD [address] [place] [address] Laila Penaloza, COMPUTATIONAL BIOLOGIST-CADD MANAGER [address] [place] [address] Anesthesia Record Procedure Summary Procedure Name Responsible Anesthesiologist Anesthesia Start Time Anesthesia Stop Time REPAIR RIGHT INGUINAL HERNIA WITH MESH (OPEN ) (Right: Groin) Ezra Aguirre MD 04/13/23 0854 04/13/23 1004 Events Date Time Event Comment 04/13/2023 0853 0854 An Start Chart reviewed and discussed with anesthesiologist. Patient IDd, all questions answered, IV sedation given as charted, to OR 0854 An Start Data assisted patie nt to OR table, monitors applied, obtaining vital signs 0857 PT Reassessment 0858 Induction 100% oxygen for greater than 3 min, smooth IV induction, easy ventilation. 0859 An Intubation DL x 1, OETT p laced without difficulty, atraumatic, positive BBS, secured in place. 0905 Stop ABX 0908 Timeout Anesthesia part icipated in timeout at the time documented in the record by nursing. 0959 Extubation Pt spontaneousl y breathing, TV >200ml, 5 second sustained tetany, oropharynx suctioned, opened eyes to command, extubated with PPV, maintained airway, O2 via simple facemask. 1000 an stop data 1004 Electnc Sig This record is electronically signed by the providers listed under staff. 1004 ANPTO2 1004 An Stop Meds Name Total midazolam 2 mg/2mL injection 2 mg fentaNYL 100 mcg/2mL injection 100 mcg lidocaine 2% injection (20 mg/ml) 100 mg propofol 200mg/20mL injection 200 mg rocuronium 50mg/5mL injection 30 mg dexamethasone 4 mg/ml injection 4 mg ondansetron 4 mg/2mL injection 4 mg ketorolac 30 mg/ml injection 30 mg sugammadex 200 mg/2 mL injection 200 mg dexMEDETOmidine (PRECEDEX) 200 mcg/2ml i njection 25 mcg lactated ringers infusion 800 mL * Agents Name Insp. N2O Exp. Sevoflurane Exp. N2O O2 Air Insp. Sevoflurane N2O * Blood No blood administrations on file. Lines, Drains, and Airways Type Details Placement Removal Peripheral IV Date: 04/13/23; Time : 826; Orientation: Distal, Posterior, Right; Placed By: Lida RUSH; Tolerance: Well 04/13/23 0827 by Lida Green RN 04/13/23 1520 by Lesli Crespo RN ETT Date: 04/13/23; Time : 858; Placed By: Natividad Collier APRN-CADD MANAGER; Vent: easy mask; Induction: Standard IV; Blade Type: Christopher; Blade Size: 2; Laryngoscopy View: Grade 1 (full cords); Intubation Adjuncts: Stylet, Cricoid Pressure; Tube: Endotracheal Tube; Placement: Oral; Tube Type: Cuffed-inflated; Tube Size(mm): 8 MM; Depth of Insertion: 21 CM; Measured From: lips; Attempts: 1; Cuff Infated: Air; Verified By: Direct visualization, Bilateral breath sounds, Chest Auscultation, CO2 Monitor 04/13/23 0859 by Natividad Collier APRN-CRNA 04/13/23 1000 by Natividad Collier APRN-PRIYANKA Procedural Site (Incision) 04/13/23; 0914; Right; Groin; 04/13/23; 22004/13/23 0914 by Trish Rajan RN 04/13/23 220 by Generic, Auto Release Drain 04/13/23; 0942; Rakel Blair MD; 1; Round; Bulb; 19 Fr; Bard; Right; Groin; General Anesthesia; 01/17/24; 0740 04/13/23 0942 by Trish Rajan RN 01/17/24 0740 by Nichole Bowers RN documented in this encounter Social History Tobacco Use Types Packs/Day Years Used Date Smoking Tobacco: Never Smokeless Tobacco: Never Alcohol Use Standard Drinks/Week Comments Yes 0 (1 standard drink = 0.6 oz pur e alcohol) social Sex and Gender Information Value Date Recorded Sex Assigned at Not on file Gender Identity Not on file Sexual Orientation Not on file documented as of this encounter Progress Notes * Ezra Aguirre MD - 04/13/2023 10:49 AM CDT ANESTHESIA POSTOP EVALUATION NOTE Procedure: REPAIR RIGHT INGUINAL HERNIA WITH MESH (OPEN ) (Right: Groin) Phil Chase Jr. is a 27 year old male Patient Vitals for the past 6 hrs: BP Temp Pulse Resp SpO2 Pain Rating Score #1 Pain Scale/Observation Pulse - (SPO2/Cuff) 04/13/23 0822 119/74 97.6 ??F (36.4 ??C) 47 18 100 % -- -- -- 04/13/23 0831 -- -- 50 -- -- -- -- -- 04/13/23 1001 121/55 97.3 ??F (36.3 ??C) 73 14 100 % -- B 74 bpm 04/13/23 1005 117/61 -- 74 14 100 % -- -- -- 04/13/23 1010 120/66 -- 68 14 100 % -- -- -- 04/13/23 1015 122/74 -- 66 16 100 % -- -- -- 04/13/23 1020 123/70 -- 76 17 97 % 5 N;B -- 04/13/23 1025 115/71 -- 62 14 98 % -- -- -- 04/13/23 1026 -- -- -- -- -- 9 N -- 04/13/23 1030 118/69 -- 66 17 97 % 6 -- -- 04/13/23 1035 111/66 -- 55 13 98 % -- -- -- 04/13/23 1040 112/67 -- 56 9 96 % 6 -- -- 04/13/23 1045 112/67 -- 54 13 98 % -- -- -- Anesthesia Type: general ETT Pre-op Diagnosis Codes: * Inguinal hernia without obstruction or gangrene, recurrence not specified, unspecified laterality[K40.90] Mental Status: awake and sufficiently recovered from acute administration of anesthesia to participate in the evaluation Neuro Status: No numbess, tingling or visual disturbances Respiratory Function: natural Cardiac Function: stable Postop Pain: needs to be addressed/see medication order Postop Hydration: adequate Postop Nausea: none Assessment: no apparent anesthetic complications Patient Disposition: Release from Anesthesia Care NOTABLE EVENTS: No notable events documented. * Laila Penaloza APRN-CADD MANAGER - 04/13/2023 8:18 AM CDT ANESTHESIA PREOPERATIVE EVALUATION NOTE Procedure: REPAIR RIGHT INGUINAL HERNIA WITH MESH (OPEN ) (Right: Groin) Vitals: No data found. LMP: No LMP for male patient. OB Status: unknown ANESTHESIA PRE-EVALUATION NOTE The patient is a current non-smoker. Physical Exam: Orientation X3 Airway/Mallampati Score: II Mouth Opening Distance: 3 fingerwidths Neck ROM: full TM Distance: > 3 FB Teeth: normal Heart: normal - S1 S2 Lungs: clear to ausculation bilaterally Abdomen Exam: normal Review of Systems: History of anesthetic complications: No Sleep Apnea Risk: No Malignant Hyperthermia: No GERD: No Poor Exercise Tolerance: No Recent Chest Pain: No Shortness of Breath: No AICD/Pacemaker: No Renal Disease: No Diagnostic Tests: Lab(s) reviewed: Yes. ANESTHESIA PLAN ASA Score: 2 (HIV) NPO Status: No solids since midnight and No liquids within 2 hours Anesthesia Plan: general ETT (ETT per Dr. Blair) Planned Induction: intravenous Planned Postop Destination: PACU Anesthetic plan was discussed with: patient Anesthetic Plan discussion was: Consented The patient's procedural Anesthetic Plan was discussed with the anesthesiologist and CADD MANAGER. BMI, Height, Weight Tobacco History Estimated body mass index is 22.51 kg/m?? as calculated from the following: Height as of this encounter: 1.829 m (6'). Weight as of this encounter: 75.3 kg (166 lb). Social History Tobacco Use Smoking Status Never Smokeless Tobacco Never Vaping Use ??? Vaping Use: Never used Alcohol History Drug History Social History Substance and Sexual Activity Alcohol Use Yes Comment: social Social History Substance and Sexual Activity Drug Use Not Currently ??? Types: Marijuana Outpatient Medications: Inpatient Medications: Outpatient Medications Marked as Taking for the 04/13/23 encounter (Hospital Encounter) Medication Sig Last Dose ??? Biktarvy Take 1 (one) tablet by mouth once daily 04/13/2023 ??? sertraline Take 1 (one) tablet by mouth once daily Past Week ??? triamcinolone acetonide Apply to affected area 2 times daily 04/12/2023 Current Facility-Administered Medications Medication Dose Last Admin ??? lactated ringers ??? lidocaine 0.2 mL Facility-Administered Medications Ordered in Other Encounters Medication Dose Last Admin ??? acetaminophen 1,000 mg ??? celecoxib 100 mg Allergies: No Known Allergies Relevant Problems No relevant active problems Problem List: Patient Active Problem List Diagnosis Date Noted ??? Inguinal hernia without obstruction or gangrene 04/04/2023 Medical History: Past Medical History: Diagnosis Date ??? Human immunodeficiency virus (HIV) disease (CMS/HCC) Surgical History: Past Surgical History: Procedure Laterality Date ??? Lumbar Laminectomy BOX LINER Status: No LMP for male patient. unknown OB History No obstetric history on file. Covid Vaccine: Lab Results: Recent Labs Component Name 01/12/23 1340 WBC 3.9 RBC 5.92* HCT 45.5 HGB 14.0 PLTCOUNT 325 MCV 77* MCH 23.6* MCHC 30.8* No results found for requested labs within last 120 days. No results found for requested labs within last 120 days. documented in this encounter Procedure Notes * Natividad Collier APRN-CRNA - 04/13/2023 9:10 AM CDTAssociated Order(s): ETT Placement Endotracheal Tube Placement: Patient Location: OR. Intubation Event Date/Time: 04/13/2023 8:59 AM Procedure: intubation (61567). Procedure Section: Sedation: IV sedation. Indications for Airway Management: airway protection Induction: standard IV Patient Position: sniffing Mask Ventilation: easy. Blade Type: Christopher Blade [...] ETT in proper place. Tube secured with: adhesive tape. Procedure Start Time: 04/13/2023 8:59 AM. Staff Section Anesthesia Provider: Natividad Collier APRN-CRNA, Performed the procedure Additional Comments: DL times 1, OETT placed atraumatically . documented in this encounter Miscellaneous Notes * Anesthesia Transfer of Care - Natividad Collier APRN-CRNA - 04/13/2023 10:04 AM CDT ANESTHESIA TRANSFER OF CARE NOTE Today's Date: 04/13/2023 Date of : 1995 Patient: Phil Chase Jr. Procedure(s): REPAIR RIGHT INGUINAL HERNIA WITH MESH (OPEN ) Surgeon(s): Primary: Natividad Blair MD Preop Diagnosis: Pre-op Diagnois: * Inguinal hernia without obstruction or gangrene, recurrence not specified, unspecified laterality[K40.90] Pre-op Meds (From admission, onward) Start Stop Status Route Frequency Ordered 04/13/23 0915 0.9% nacl irrigation solution 04/13/23 0955 Completed CONTINUOUS PRN 04/13/23 0916 04/13/23 0845 acetaminophen (Tylenol) tablet 1,000 mg 04/13/23 0830 Completed PO ONCE 04/13/23 0830 01/09/23 1145 celecoxib (CeleBREX) capsule 100 mg -- Verified PO Once 01/09/23 1130 04/13/23 0910 dexAMETHasone (Decadron) injection -- Sent IV PRN 04/13/23 0913 04/13/23 0856 dexmedeTOMIDine (Precedex) injection -- Sent IV PRN 04/13/23 0920 04/13/23 0906 fentaNYL (PF) (Sublimaze) injection -- Sent IV PRN 04/13/23 0912 04/13/23 0957 fentaNYL (PF) (Sublimaze) injection 25 mcg -- Verified IV EVERY 10 MIN PRN 04/13/23 0957 04/13/23 0957 fentaNYL (PF) (Sublimaze) injection 50 mcg -- Verified IV EVERY 10 MIN PRN 04/13/23 0957 04/13/23 0957 HYDROcodone-acetaminophen (Tony) 5-325 MG tablet 1 tablet -- Verified PO ONCE PRN 04/13/23 0957 04/13/23 0957 HYDROmorphone (Dilaudid) injection 0.5 mg -- Verified IV EVERY 10 MIN PRN 04/13/23 0957 04/13/23 1000 insulin regular human (HumuLIN R; NovoLIN R) 100 UNIT/ML injection 0-6 Units 04/13/23 2159 Verified IV ONCE 04/13/23 0957 04/13/23 0815 lactated ringers infusion -- Verified IV PRE-OP CONTINUOUS 04/13/23 0802 04/13/23 0858 lidocaine HCl (PF) (Xylocaine MPF) 2 % injection -- Sent IV PRN 04/13/23 0913 04/13/23 0801 lidocaine PF (Xylocaine MPF) 1 % injection 0.2 mL -- Verified INFILTRATION PRE-OP MULTIPLE 04/13/23 0802 04/13/23 0912 midazolam (Versed) injection -- Sent IV PRN 04/13/23 0912 04/13/23 0957 naloxone (Narcan) injection 0.04 mg -- Verified IV POST-OP MULTIPLE 04/13/23 0957 04/13/23 0910 ondansetron (Zofran) injection -- Sent IV PRN 04/13/23 0913 04/13/23 0957 ondansetron (Zofran) injection 4 mg -- Verified IV ONCE PRN 04/13/23 0957 04/13/23 0858 propofol (Diprivan) injection -- Sent IV PRN 04/13/23 0913 04/13/23 0858 rocuronium (Zemuron) injection -- Sent IV PRN 04/13/23912 Post-op Diagnosis: * Inguinal hernia without obstruction or gangrene, recurrence not specified, unspecified laterality[K40.90] . No Known Allergies Vitals: Patient Vitals for the past 3 hrs: BP Temp Pulse Resp SpO2 04/13/23 0831 -- -- 50 -- -- 04/13/23821 119/74 97.6 ??F (36.4 ??C) 47 18 100 % Lines, Drains, and Airways Type Details Placement Removal Peripheral IV Date: 04/13/23; Time: 826; Orientation: Distal, Posterior, Right; Location: Forearm;Placed By: Lida RUSH; Gauge: 20 Gauge; Tolerance: Well 04/13/23826 by Lida Green RN ETT Date: 04/13/23; Time: 858; Placed By: MICHA Mancuso; Vent: easy mask; Induction: Standard IV; Blade Type: Christopher; Blade Size: 2; Laryngoscopy View: Grade 1 (full cords); Intubation Adjuncts: Stylet, Cricoid Pressure; Tube: Endotracheal Tube; Placement: Oral; Tube Type: Cuffed-inflated; Tube Size(mm): 8 MM; Depth of Insertion: 21 CM; Measured From: lips; Attempts: 1; Cuff Infated: Air; Verified By: Direct visualization, Bilateral breath sounds, Chest Auscultation, CO2 Monitor 04/13/23 0859 by Natividad Collier APRN- CRNA 04/13/23 1000 by Natividad Collier APRN-CRNA Drain 04/13/23; 0942; Rakel Blair MD; 1; Round; Bulb; 19 Fr; Bard; Right; Groin; General Skmkefzcci85/22/23 0942 by Trish Rajan RN Intraprocedure I/O Totals None Patient Transfer Location: PACU Transport Airway: spontaneous respirations and supplemental O2 Complications: None Handoff Given? Yes Checklist or Protocol - The krishna handoff elements that must be included in the transfer of care checklist include: 1. Identification of patient. 2. Identification of responsible practitioner (PACU nurse or advanced practitioner). 3. Discussion of pertinent medical history. 4. Discussion of the surgical/procedure course (procedure, reason for surgery, procedure performed). 5. Intraoperative anesthetic management and issue/concerns. 6. Expectations/Plans for the early post-procedure period. 7. Opportunity for questions and acknowledgement of understanding of report from the receiving PACUteam. MICHA Mancuso documented in this encounter Plan of Treatment Not on file documented as of this encounter Procedures Procedure Name Priority Date/Time Associated Diagnosis Comments ENDOTRACHEAL TUBE NOTE Routine 04/13/2023 9:10 AM CDT documented in this encounter Results * ETT LINE PERFORMABLE (04/13/2023 9:10 AM CDT) Narrative Natividad Collier APRN-CRNA - 04/13/2023 9:10 AM CDT Natividad Collier APRN-CRNA ? 04/13/2023 ??9:10 AM Endotracheal Tube Placement: ? Patient Location: OR. Intubation Event Date/Time: ??04/13/2023 8:59 AM Procedure: intubation ([id number]). Procedure Section: ?? Sedation: IV sedation. Indications [...] Staff Section ? Anesthesia Provider: Natividad Collier, COMPUTATIONAL BIOLOGIST-CADD MANAGER, Performed the procedure Additional Comments: DL times 1, OETT placed atraumatically . Ezra Aguirre MD GENERAL ANESTHESIA ORDERABLES documented in this encounter Visit Diagnoses Not on filedocumented in this encounter Administered Medications Inactive Administered Medications - up to 3 most recent administrations Medication Order MAR Action Action Date Dose Rate Site dexAMETHasone (Decadron) injection Intravenous, PRN, Starting on Sun04/13/23 at 0910, Until Sun04/13/23 at 1004, Anesthesia Intra-op $ Given 04/13/2023 9:10 AM CDT 4 mg dexmedeTOMIDine (Precedex) injection Intravenous, PRN, Starting on Sun04/13/23 at 0856, Until Sun04/13/23 at 1004, Anesthesia Intra-op $ Given 04/13/2023 9:07 AM CDT 10 mcg $ Given 04/13/2023 8:56 AM CDT 15 mcg fentaNYL (PF) (Sublimaze) injection Intravenous, PRN, Starting on Sun04/13/23 at 0906, Until Sun04/13/23 at 1004, Anesthesia Intra-op $ Given 04/13/2023 9:19 AM CDT 50 mcg $ Given 04/13/2023 9:06 AM CDT 50 mcg ketorolac (Toradol) injection Intravenous, PRN, Starting on Sun04/13/23 at 0950, Until Sun04/13/23 at 1005, Anesthesia Intra-op $ Given 04/13/2023 9:50 AM CDT 30 mg lactated ringers infusion at 20 mL/hr, Intravenous, PRE-OP CONTINUOUS, Starting on Sun04/13/23 at 0815, Until Sun04/13/23 at 1701, Pre-op $ New Bag/Syringe 04/13/2023 10:37 AM CDT 20 mL/hr Restarted 04/13/2023 8:54 AM CDT $ New Bag/Syringe 04/13/2023 8:30 AM CDT 20 mL/ hr lidocaine HCl (PF) (Xylocaine MPF) 2 % injection Intravenous, PRN, Starting on Sun04/13/23 at 0858, Until Sun04/13/23 at 1004, Anesthesia Intra-op $ Given 04/13/2023 8:58 AM CDT 100 mg midazolam (Versed) injection Intravenous, PRN, Starting on Sun04/13/23 at 0912, Until Sun04/13/23 at 1004, Anesthesia Intra-op $ Given 04/13/2023 9:12 AM CDT 2 mg ondansetron (Zofran) injection Intravenous, PRN, Starting on Sun04/13/23 at 0910, Until Sun04/13/23 at 1004, Anesthesia Intra-op $ Given 04/13/2023 9:10 AM CDT 4 mg propofol (Diprivan) injection Intravenous, PRN, Starting on Sun04/13/23 at 0858, Until Sun04/13/23 at 1004, Anesthesia Intra-op $ Given 04/13/2023 8:58 AM CDT 200 mg rocuronium (Zemuron) injection Intravenous, PRN, Starting on Sun04/13/23 at 0858, Until Sun04/13/23 at 1004, Anesthesia Intra-op $ Given 04/13/2023 8:58 AM CDT 30 mg sugammadex (Bridion) injection Intravenous, PRN, Starting on Sun04/13/23 at 0950, Until Sun04/13/23 at 1005, Anesthesia Intra-op $ Given 04/13/2023 9:50 AM CDT 200 mg documented in this encounter Care Teams Attenuator Relationship Specialty Start Date End Date None, Physician [address] [place] [address] PCP - General 12/19/22 09/16/23 documented as of this encounter
--- OUTSIDE RECORDS SUMMARY | 2024-08-10 03:29 | XMS_ITS | Encounter Summary ---
Author Organization [facility] Address [address] [place] [address] Care Team Providers Care Ice Cream Dispenser Name Role Phone None, Physician Primary Care Provider Unavailabl e Reason for Visit * Reason Onset Date Comments Surgery Cancellation 01/16/2023 Encounter Details Date Type Department Care Team (Late st Contact Info) Description 01/16/2023 Telephone [facility] - General Surgery [address] [place] [id number] Sheron Christopher duty engineer Cancellation Social History Tobacco Use Types Packs/Day Years [...] PM CDT documented as of this encounter Miscellaneous Notes * Telephone Encounter - Sheron Christopher RN - 01/16/2023 8:49 AM CDT Spoke with patient's mother regarding Dr. Ponce wishes to cancel surgery at this time. Per Dr. Ponce, patient's CD4 count is too low for elective surgery. Doctor would like patient to follow withhis HIV doctor and return to see Dr. Ponce in clinic after he has two consecutive CD4 counts >200 and is cleared by the HIV doctor. Ekaterina, mother, verbalized understanding. documented in this encounter Plan of Treatment Not on file documented as of this encounter Visit Diagnoses Not on filedocumented in this encounter Care Teams Ice Cream Dispenser Relationship Specialty Start Date End Date None, Physician [address] [place] [address] PCP - General 12/19/22 09/16/23 documented as of this encounter
--- OUTSIDE RECORDS SUMMARY | 2024-08-10 03:29 | XMS_ITS | Encounter Summary ---
Author Organization [facility] Address [address] [place] [address] Care Team Providers Care Seasonal Warehouse Associate Name Role Phone None, Physician Primary Care Provider Unavailabl e Reason for Visit * Reason Onset Date Comments Referral 03/23/2023 Encounter Details Date Type Department Care Team (Late st Contact Info) Description 03/23/2023 Telephone [facility] - General Surgery [address] [place] [address] Natividad Blair MD [address] [place] [address] Referral (/) Social History Tobacco Use Types Packs/Day Years [...] encounter Miscellaneous Notes * Telephone Encounter - Nolan Zhang RN - 03/23/2023 3:10 PM CDT Received an incoming call from patient mother who informed the office that patient previously saw Dr. Ponce. However, Dr. Ponce is going on Maternity leave soon and will be unable to schedule patient's hernia surgery prior to leaving. As a result patient's mother states the doctor recommended reaching out to General surgery here at [facility] to schedule with either Dr. Blair or Dr. Mohrmanfor a sooner appointment. Spoke with Clinical Lead Walt and patient was tentatively scheduled with Dr. Blair, but will follow-up to ensure there is no concern with seeing the patient since patient already had office visits with Dr. Ponce. Patient currently scheduled for 04/04/2023. Please advise if any concerns. documented in this encounter Plan of Treatment Not on file documented as of this encounter Visit Diagnoses Not on filedocumented in this encounter Care Teams Seasonal Warehouse Associate Relationship Specialty Start Date End Date None, Physician [address] [place] [address] PCP - General 12/19/22 09/16/23 documented as of this encounter
--- OUTSIDE RECORDS SUMMARY | 2024-08-10 03:29 | XMS_ITS | Encounter Summary ---
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 05/04/2024 11:12 AM CDT [facility] Blood BLOOD SPECIMEN / Unknown Venipuncture / Unknown 05/04/2024 10:36 AM CDT 05/04/2024 10:36 AM CDT Narrative [facility] - 05/04/2024 11:12 AM CDT Non Reactive - Antibodies to Hepatitis C virus (HCV) were not detected, result does not exclude early acute HCV infection. Monica Rodgers MD LAB - CHEMISTRY AMANDA MELENDREZ Performing Organization Address [facility]/ZIP Co de Phone Number [facility] [address] [place] [address] * SARS-COV-2 (COVID-19) FLU A/B RSV PCR RAPID (05/02/2024 9:46 PM CDT) Pathologist [facility] COVID-19 PCR Not detected Not detected 05/02/20 10:47 PM CDT [facility] Influenza A PCR Not detected Not detected 05/02/2024 10:47 PM CDT [facility] Influenza B PCR Not detected Not detected 05/02/2024 10:47 PM CDT [facility] RSV PCR Not detected Not detected 05/02/2024 10:47 PM CDT [facility] Microbiology SPECIMEN FROM NASOPHARYNGEAL STRUCTURE / Unknown Collection / Unknown 05/02/2024 9:46 PM CDT 05/02/2024 9:46 PM CDT Narrative [facility] - 05/02/2024 10:47 PM CDT This [...] EUA assay are available upon request. Monica Rodgers MD LAB - MICROBIOLOGY O RDERABLES Performing Organization Address City/State/[facility] Co de Phone Number [facility] [address] [place] [phone] * XR CHEST 2VW (05/02/2024 9:44 PM CDT) Anatomical Region Laterality Modality Chest Radiographic Shakila ging 05/03/2024 7:17 AM CDT Impressions 05/03/2024 7:18 AM CDT IMPRESSION: No active disease. > Interpreting Provider: Abdiel Fay MD on 05/03/2024 7:18 AM Narrative 05/03/2024 7:18 AM CDT Procedure: XR CHEST 2VW ??Exam Date: ??05/02/2024 9:44 PM ?? Location: ??[facility] Indication: R45.1: Restlessness and agitation Findings: There are no old studies available for comparison. The lungs are clear of infiltrate. There are no pleural effusions or pneumothorax. The heart size and pulmonary vascularity are normal. Procedure Note Abdiel Fay MD - 05/03/2024 Procedure: XR CHEST 2VW Exam Date: 05/02/2024 9:44 PM Location: [facility] Indication: R45.1: Restlessness and agitation Findings: There are no old studies available for comparison. The lungsare clear of infiltrate. There are no pleural effusions or pneumothorax. The heart size and pulmonary vascularity are normal. IMPRESSION: No active disease. > Interpreting Provider: Abdiel Fay MD on 05/03/2024 7:18 AM Monica Rodgers MD DIAGNOSTIC IMAGING O RDERABLES * (ABNORMAL) URINE DRUG SCREEN IMMUNOASSAY (05/02/2024 8:36 PM CDT) Amphetamines Screen Urine Detected(A) Not detected 05/02/2024 8:52 PM CDT [facility] Barbiturates Screen Urine Not detected Not detected 05/02/2024 8:52 PM CDT [facility] Benzodiazepines Screen Urine Not detected Not detected 05/02/2024 8:52 PM CDT [facility] Cannabinoids Screen Urine Not detected Not detected 05/02/2024 8:52 PM CDT [facility] Cocaine Screen Urine Not detected Not detected 05/02/2024 8:52 PM CDT [facility] Fentanyl Urine Not detected Not detected 05/02/2024 8:52 PM CDT [facility] Methadone Screen Urine Not detected Not detected 05/02/2024 8:52 PM CDT [facility] Opiate Screen Urine Not detected Not detected 05/02/2024 8:52 PM CDT [facility] Phencyclidine Screen Urine Not detected Not detected 05/02/2024 8:52 PM CDT [facility] Urine URINE / Unknown Collection / Unknown 05/02/2024 8:36 PM CDT 05/02/2024 8:36 PM CDT Narrative [facility] - 05/02/2024 8:52 PM CDT This drug screen is designed [...] ng/mL OPIATES ?300 ng/mL PHENCYCLIDINE(PCP) ??25 ng/mL Monica Rodgers MD LAB - URINE CHEMISTR Y ORDERABLES [facility] [address] [place] [address] * XR Ankle Left 3Vw or More (05/02/2024 8:22 PM CDT) Anatomical Region Laterality Modality Lower Extremity Radiographic [...] Arboleda MD on 05/02/2024 8:26 PM Monica Rodgers MD DIAGNOSTIC IMAGING O RDERABLES * (ABNORMAL) CK BLOOD (05/02/2024 7:29 PM CDT) CK 263(H) 30 - 200 U/L 05/02/2024 7:47 PM CDT [facility] Blood BLOOD SPECIMEN / Unknown Venipuncture / Unknown 05/02/2024 7:29 PM CDT 05/02/2024 7:29 PM CDT Monica Rodgers MD LAB - CHEMISTRY AMANDA MELENDREZ [facility] [address] [place] [phone] * (ABNORMAL) ACETAMINOPHEN LEVEL (05/02/2024 7:29 PM CDT) Acetaminophen <3.0(L) 10.0 - 30.0 ug/mL 05/02/2024 7:47 PM CDT [facility] Blood BLOOD SPECIMEN / Unknown Venipuncture / Unknown 05/02/2024 7:29 PM CDT 05/02/2024 7:29 PM CDT Narrative [facility] - 05/02/2024 7:47 PM CDT M ACETAMINOPHEN COMMENT Critical values: 4 Hours Post [...] may alter the peak level. Contact the [facility] at or reserved for healthcare professionals to assist you in evaluating potentially toxic acetaminophen levels. Monica Rodgers MD LAB - CHEMISTRY AMANDA MELENDREZ Performing Organization Address [facility]/ZIP Co de Phone Number [facility] [address] [place] [address] * ALCOHOL ETHYL BLOOD (05/02/2024 7:29 PM CDT) Ethanol <10.0 <10 mg/dL 05/02/2024 7:47 PM CDT [facility] Ethanol Calculated <0.010 <=0.100 gm/dL 05/02/2024 7:47 PM CDT [facility] Blood BLOOD SPECIMEN / Unknown Venipuncture / Unknown 05/02/2024 7:29 PM CDT 05/02/2024 7:29 PM CDT Narrative [facility] - 05/02/2024 7:47 PM CDT Ethanol Interp <10: None Detected [...] not equal a MICHAELLE for legal purposes. Monica Rodgers MD LAB - CHEMISTRY AMANDA MELENDREZ Performing Organization Address [facility] de Phone Number [facility] [address] [place] [phone] * (ABNORMAL) SALICYLATE LEVEL BLOOD (05/02/2024 7:29 PM CDT) Salicylate <5.0(L) 15.0 - 30.0 mg/dL 05/02/2024 7:47 PM CDT [facility] Blood BLOOD SPECIMEN / Unknown Venipuncture / Unknown 05/02/2024 7:29 PM CDT 05/02/2024 7:29 PM CDT Monica Rodgers MD LAB - CHEMISTRY AMANDA MELENDREZ Performing Organization Address [facility]/ZIP Co de Phone Number [facility] [address] [place] [address] * (ABNORMAL) COMPREHENSIVE METABOLIC PANEL (05/02/2024 7:29 PM CDT) [facility] Glucose 75 70 - 99 mg/dL 05/02/2024 7:47 PM CDT [facility] Sodium 136 136 - 145 mmol/L 05/02/2024 7:47 PM CDT [facility] Potassium 4.0 3.5 - 5.1 mmol/L 05/02/2024 7:47 PM CDT [facility] Chloride 108(H) 98 - 107 mmol/L 05/02/2024 7:47 PM CDT [facility] CO2 21(L) 22 - 29 mmol/L 05/02/2024 7:47 PM CDT [facility] Calcium 8.8 8.4 - 10.4 mg/dL 05/02/2024 7:47 PM CDT [facility] Anion Gap 7 6 - 16 mmol/L 05/02/2024 7:47 PM CDT [facility] BUN 13 5.3 - 18.7 mg/dL 05/02/2024 7:47 PM CDT [facility] Creatinine 1.44(H) 0.72 - 1.25 mg/dL 05/02/2024 7:47 PM CDT [facility] Alkaline Phosphatase 59 40 - 150 U/L 05/02/2024 7:47 PM CDT [facility] ALT 15 0 - 55 U/L 05/02/2024 7:47 PM CDT [facility] AST 19 5 - 34 U/L 05/02/2024 7:47 PM CDT [facility] Protein Total 8.1 6.4 - 8.3 gm/dL 05/02/2024 7:47 PM CDT [facility] Albumin 3.4 3.4 - 5.0 gm/dL 05/02/2024 7:47 PM CDT [facility] Bilirubin Total 0.8 0.2 - 1.2 mg/dL 05/02/2024 7:47 PM CDT [facility] eGFR by CKD-EPI 67(L) >=90 mL/min/1.7 3 m2 05/02/2024 7:47 PM CDT [facility] Blood BLOOD SPECIMEN / Unknown Venipuncture / Unknown 05/02/2024 7:29 PM CDT 05/02/2024 7:29 PM CDT Monica Rodgers MD LAB - CHEMISTRY AMANDA MELENDREZ [facility] Organization Address City/State/ZIP Co de Phone Number [facility] [address] [place] [address] * (ABNORMAL) CBC W AUTO DIFFERENTIAL (05/02/2024 7:29 PM CDT) WBC 7.1 4.0 - 10.7 x10E9/L 05/02/2024 7:32 PM CDT [facility] RBC Count 4.42 4.30 - 5.80 x10E12/L 05/02/2024 7:32 PM CDT [facility] Hemoglobin 11.5(L) 13.3 - 17.5 g/dL 05/02/2024 7:32 PM CDT [facility] Hematocrit 36.3(L) 38.7 - 51.1 % 05/02/2024 7:32 PM CDT [facility] MCV 82.1 80.0 - 98.0 fL 05/02/2024 7:32 PM CDT [facility] MCH 26.0(L) 26.7 - 33.6 pg 05/02/2024 7:32 PM CDT [facility] MCHC 31.7 31.7 - 36.3 g/dL 05/02/2024 7:32 PM CDT [facility] RDW-CV 14.3 11.3 - 14.8 % 05/02/2024 7:32 PM CDT [facility] Platelet Count 221 150 - 420 x10E9/L 05/02/2024 7:32 PM CDT [facility] MPV 9.8 7.8 - 11.4 fL 05/02/2024 7:32 PM CDT [facility] Neutrophil % 62.5 41.0 - 74.0 % 05/02/2024 7:32 PM CDT [facility] Lymphocyte % 28.4 17.0 - 47.0 % 05/02/2024 7:32 PM CDT [facility] Monocyte % 8.3 3.0 - 11.0 % 05/02/2024 7:32 PM CDT [facility] Eosinophil % 0.1 0.0 - 7.0 % 05/02/2024 7:32 PM CDT [facility] Basophil % 0.1 0.0 - 1.6 % 05/02/2024 7:32 PM CDT [facility] Immature Granulocytes % 0.6 0.0 - 1.0 % 05/02/2024 7:32 PM CDT [facility] Neutrophil Absolute 4.46 1.60 - 7.50 x10E9/L 05/02/2024 7:32 PM CDT [facility] Lymphocyte Absolute 2.03 1.00 - 4.40 x10E9/L 05/02/2024 7:32 PM CDT [facility] Monocyte Absolute 0.59 0.15 - 1.00 x10E9/L 05/02/2024 7:32 PM CDT [facility] Eosinophil Absolute 0.01 0.00 - 0.60 x10E9/L 05/02/2024 7:32 PM CDT [facility] Basophil Absolute 0.01 0.00 - 0.13 x10E9/L 05/02/2024 7:32 PM CDT [facility] Blood BLOOD SPECIMEN / Unknown Venipuncture / Unknown 05/02/2024 7:29 PM CDT 05/02/2024 7:29 PM CDT Monica Rodgers MD LAB - HEMATOLOGY ORD ERABLES Performing Organization Address City/State/[facility] Co de Phone Number [facility] [address] [place] [address] documented in this encounter Visit Diagnoses Diagnosis Acute left ankle pain Agitation Other and unspecified special symptom or syndrome, not elsewhere classified Amphetamine use [place] (acute kidney injury) (HCC) Acute kidney failure, unspecified Bipolar affective disorder, current episode mixed, current episode severity unspecified (HCC) documented in this encounter Administered Medications Inactive Administered Medications - up to 3 most recent administrations Medication Order MAR Action Action Date Dose Rate Site ARIPiprazole (Abilify) tablet 10 mg 10 mg, Oral, DAILY, First dose on Sun05/05/24 at 1000, Until Discontinued $ Given 05/08/2024 8:46 AM CDT 10 mg $ Given 05/07/2024 8:45 AM CDT 10 mg $ Given 05/06/2024 9:27 AM CDT 10 mg prmmzftkajj-psgmjnnmtpxpa-iifwyykmq (Biktarvy) 1 tablet 1 tablet, Oral, DAILY, First dose on Sun05/05/24 at 1000, Until Discontinued, Indication for restricted anti-infective therapy: Home regimen (all components of therapy are ordered; contact ID/ASP team if uncertain or unable to confirm) $ Given 05/06/2024 10:48 AM CDT 1 tablet $ Given 05/05/2024 10:14 PM CDT 1 tablet cefTRIAXone (Rocephin) injection 500 mg 500 mg, Intramuscular, NOW, 1 dose, On 05/03/24 at 0430, Dilute with 1 mL sterile water, Indication for anti-infective therapy: Suspected infection, Site of anti-infective therapy: Urine/Genitourinary $ Given 05/03/2024 9:37 AM CDT 500 mg Left Ventrogluteal diazePAM (Valium) tablet 5 mg 5 mg, Oral, NOW, 1 dose, On Sun05/02/24 at 1915 $ Given 05/02/2024 7:32 PM CDT 5 mg doxepin (SINEquan) capsule 25 mg 25 mg, Oral, AT BEDTIME, First dose on Sun05/05/24 at 2100, Until Discontinued $ Given 05/07/2024 8:15 PM CDT 25 mg $ Given 05/06/2024 10:09 PM CDT 25 mg $ Given 05/05/2024 10:14 PM CDT 25 mg doxycycline monohydrate capsule 100 mg 100 mg, Oral, 2 TIMES DAILY, 14 doses, First dose on Sun05/03/24 at 0430, Last dose on Sun05/09/24 at 0900, Administer at least 2 hours before or 4 hours after antacids, sucralfate, metals (eg, iron, zinc), multivitamin preparations, tube feeds Administer with 8 oz of water to prevent localized caustic injury. Flush thoroughly with water if administered by enteral tube., Indication for anti-infective therapy: Risk of Infection $ Given 05/08/2024 8:46 AM CDT 100 mg $ Given 05/07/2024 8:15 PM CDT 100 mg $ Given 05/07/2024 8:45 AM CDT 100 mg DULoxetine (Cymbalta) capsule 60 mg 60 mg, Oral, DAILY, First dose on Sun05/05/24 at 1000, Until Discontinued, Capsules can be opened and sprinkled on food/mixed with liquids and should be used within 2 hrs (Do not crush pellets inside capsule) Whole capsules should be swallowed whole and not chewed $ Given 05/08/2024 8:46 AM CDT 60 mg $ Given 05/07/2024 8:45 AM CDT 60 mg $ Given 05/06/2024 9:27 AM CDT 60 mg documented in this encounter Active and Recently Administered Medications Times are shown in CDT. Scheduled Medication Order 05/06/2024 05/07/2024 05/08/2024 ARIPiprazole (Abilify) tablet 10 mg 10 mg, Oral, DAILY, First dose on Sun05/05/24 at 1000, Until Discontinued 09 ($ Given - Provider: Anne Newell RN) 0845 ($ Given - Provider: Anup Boland RN) 0846 ($ Given - Provider: Beverly King RN) bictegravir-emtricitabi ne-tenofovir (Biktarvy) 1 tablet 1 tablet, Oral, DAILY, First dose on Sun05/05/24 at 1000, Until Discontinued, Indication for restricted anti-infective therapy: Home regimen (all components of therapy are ordered; contact ID/ASP team if uncertain or unable to confirm) 1048 ($ Given - Provider: Anne Newell RN) 0900 (Due) 0900 (Due) doxepin (SINEquan) capsule 25 mg 25 mg, Oral, AT BEDTIME, First dose on Sun05/05/24 at 2100, Until Discontinued 2208 ($ Given - Provider: Bel Almonte RN) 2014 ($ Given - Provider: Dana Ramos RN) doxycycline monohydrate capsule 100 mg 100 mg, Oral, 2 TIMES DAILY, 14 doses, First dose on Sun05/03/24 at 0430, Last dose on Sun05/09/24 at 0900, Administer at least 2 hours before or 4 hours after antacids, sucralfate, metals (eg, iron, zinc), multivitamin preparations, tube feeds Administer with 8 oz of water to prevent localized caustic injury. Flush thoroughly with water if administered by enteral tube., Indication for anti-infective therapy: Risk of Infection 09 ($ Given - Provider: Anne Newell RN)2208 ($ Given - Provider: Bel Almonte RN) 0845 ($ Given - Provider: Anup Boland, RN)2014 ($ Given - Provider: Dana Ramos RN) 0846 ($ Given - Provider: Beverly King, RN) DULoxetine (Cymbalta) capsule 60 mg 60 mg, Oral, DAILY, First dose on Sun05/05/24 at 1000, Until Discontinued, Capsules can be opened and sprinkled on food/mixed with liquids and should be used within 2 hrs (Do not crush pellets inside capsule) Whole capsules should be swallowed whole and not chewed 09 ($ Given - Provider: Anne Newell RN) 0845 ($ Given - Provider: Anup Boland RN) 0846 ($ Given - Provider: Beverly King, VICTOR MANUEL) documented in this encounter Additional Health Concerns Infection Onset Date Last Indicated Resolved Time COVID-19 Under Investigation 05/02/2024 05/02/2024 05/02/2024 10:47 PM CDT COVID-19 Under Investigation 05/04/2024 05/04/2024 05/04/2024 11:09 AM CDT documented as of this encounter Care Teams Hogshead Press Operator Relationship Specialty Start Date End Date Mady Sullivan PCP - General 02/03/24 documented as of this encounter
--- OUTSIDE RECORDS SUMMARY | 2024-08-10 03:29 | XMS_ITS | Encounter Summary ---
Author Organization [facility] Health Address [address] [place] [address] Care Team Providers Care Signal Circuit Designer Name Role Phone Unknown, Provider Primary Care Provider Unavaila ble Encounter Details Date Type Department Care Team (Latest Contact Info) Description 12/23/2023 Travel Social History Tobacco Use Types Packs/Day [...] Recorded Patient Health Questionnaire-2 Score 3 12/23/2023 [facility] [place] of Occupat ional Health - Occupational [...] slept in a usp (including now)? Yes 12/24/2023 Sex and Gender [...] on filedocumented in this encounter Care Teams Signal Circuit Designer Relationship Specialty Start Date End Date Unknown, Provider PCP - General 09/17/23 02/02/24 documented as of this encounter
--- OUTSIDE RECORDS SUMMARY | 2024-08-10 03:29 | XMS_ITS | Encounter Summary ---
Author Organization [facility] Health Address [address] [place] [address] Care Team Providers Care Printing Press Operator Apprentice Name Role Phone Unknown, Provider Primary Care Provider Unavaila ble Encounter Details Date Type Department Care Team (Latest Contact Info) Description 01/17/2024 Travel Social History Tobacco Use Types Packs/Day [...] Recorded Patient Health Questionnaire-2 Score 3 12/23/2023 [facility] [place] of Occupat ional Health - Occupational Stress [...] on filedocumented in this encounter Care Teams Printing Press Operator Apprentice Relationship Specialty Start Date End Date Unknown, Provider PCP - General 09/17/23 02/02/24 documented as of this encounter
--- OUTSIDE RECORDS SUMMARY | 2024-08-10 03:29 | XMS_ITS | Encounter Summary ---
Author Organization [facility] Address [address] [place] [address] Care Team Providers Care Staff Mine Warfare Officer Name Role Phone None, Physician Primary Care Provider Unavailabl e Reason for Visit * Auth/Cert (Routine) Specialty Diagnoses / Procedures Referred By Contac t Referred To Contact Diagnoses Inguinal hernia without obstruction or gangrene, recurrence not specified, unspecified laterality Inguinal hernia without obstruction or gangrene, recurrence not specified, unspecified laterality [K40.90] Procedures CT RPR 1ST INGUN HRNA AGE 3 YRS/> REDUCIBLE REPAIR INGUINAL HERNIA Referral ID Status Reason Start Date Expiration Date Visits Re quested Visits Authorized [id number] 1 1 Encounter Details Date Type Department Care Team (Late st Contact Info) Description 04/13/2023 8:57 AM CDT - 04/13/2023 10:38 AM CDT Surgery [facility] [address] [place] [address] Natividad Blair MD [address] [place] [phone] REPAIR RIGHT INGUINAL HERNIA WITH MESH (OPEN ) Surgery Details Date/Time Status Location OR Service Patient Class Case Class Case Type Trauma Case? 04/13/2023 8:57 AM Posted [facility] MAIN OR OR 12 General Surgery Day Care Elective > 5 days Panel 1 Procedure LRB Anes Op Region Wound Class Comments REPAIR RIGHT INGUINAL HERNIA WITH MESH (OPEN ) Right General Groin Clean Surgeon Surgeon Role Service Panel Natividad Blair MD Primary General 1 Case Notes 2ND CASE SUPINE 60 MIN Special Needs NEEDS TELEPHONE INFORMATION CLERK documented in this encounter Social History Tobacco [...] Sign Reading Time Taken Comments Blood Pressure 111/66 04/13/2023 10:35 AM CDT Pulse 55 04/13/2023 10:35 AM CDT Temperature 36.3 ??C (97.3 ??F) 04/13/2023 10:01 AM C DT Respiratory Rate 13 04/13/2023 10:35 AM CDT Oxygen Saturation 98% 04/13/2023 10:35 AM CDT Inhaled Oxygen Concentration - - [...] to the patient's preferred pharmacy. Preferred Pharmacy [facility] [address] [facility] [address] [place] [address] Hours: Not open 24 hours Natividad Blair MD General Surgeon, [facility] Pager [phone] Office/Answering Service [phone] documented in this encounter H&P Notes * [...] Outpatient Medications Medication Sig Dispense Refill ??? biukqxgheqm-qjtmtoazzoaor-rqcduemou (Biktarvy) 50-200-25 MG Take 1 (one) tablet by mouth once daily 30 tablet 2 ??? oynrfnlxhfy-rlcqgyntenvbf-tjjacrsyv (Biktarvy) 50-200-25 MG Take 1 (one) tablet [...] AST, TBIL, TPROT, EGFR in the last 13934 hours. Assessment / Plan: Phil Chase Jr. [...] have post opdrain to reduce seroma -CPT 91949 open incarcerated inguinal hernia repair -Surgery scheduled for Apr 13 -The following pre op testing was ordered: none -Excellent functional status (>4 METS without any symptoms), no need for any pre operative cardiac work up Natividad Blair MD 04/04/2023 11:02 AM Natividad Blair MD General Surgeon, [facility] Pager [phone] Office/Answering Service [phone] documented in this encounter OR Notes * Operative - Natividad Blair MD - 04/13/2023 9:09 AM CDT Operative Note [facility] Natividad Blair MD Procedure date: 04/13/2023 Preoperative Diagnosis: right inguinal hernia Procedure: Open right inguinal hernia repair Postoperative Diagnosis: Incarcerated right inguinal hernia Surgeon: Natividad Blair MD Power Lineworker: Mathew ARTHUR Anesthesia: General endotracheal anesthesia Indications [...] Implant Name Type Inv. Item Serial No. Upholstery Bundler Lot No. LRB No. Used Action Mesh Srg 6X3In Lg Pore Knit Mfl Smth Rnd Mesh Mesh Srg 6X3In Lg Pore Knit Mfl Smth Rnd [employer] [id number] Implanted Natividad Blair MD General Surgeon, [facility] Pager [phone] Office/Answering Service [phone] documented in this encounter Plan of Treatment Not on file documented as of this encounter Procedures Procedure Name Priority Date/Time Associated Diagnosis Comments CARDIAC RHYTHM STRIP ORDER 04/17/2023 5:[address] RPR 1ST INGUN HRNA AGE 3 YRS/> REDUCIBLE 04/13/2023 8:29 AM CDT Inguinal hernia without obstruction or gangrene, recurrence not specified, unspecified laterality Case Notes 2ND CASE SUPINE 60 MIN Special Needs NEEDS TELEPHONE INFORMATION CLERK documented in this encounter Results * CARDIAC [...] unilateral inguinal hernia without obstruction or gangrene Inguinal hernia without obstruction or gangrene, recurrence not specified, unspecified laterality documented in this encounter Admitting Diagnoses Diagnosis Inguinal hernia without obstruction or gangrene Inguinal hernia without mention of obstruction or gangrene, unilateral or unspecified, (not specified as recurrent) documented in this encounter Administered Medications Inactive Administered Medications - up to 3 most recent administrations Medication Order MAR Action Action Date Dose Rate Site 0.9% nacl irrigation solution CONTINUOUS PRN, Starting on Sun04/13/23 at 0915, Until Sun04/13/23 at 0955, Intra-op $ New Bag/Syringe 04/13/2023 9:15 AM CDT 500 mL Operative Site acetaminophen (Tylenol) tablet 1,000 mg 1,000 [...] Given 04/13/2023 8:30 AM CDT 1,000 mg BUPivacaine PF (Marcaine PF) 0.25 % injection PRN, Starting on Sun04/13/23 at 0948, Until Sun04/13/23 at 0955, Intra-op $ Given 04/13/2023 9:48 AM CDT 8 mL Operative Site fentaNYL (PF) (Sublimaze) injection 25 mcg 25 [...] 04/13/2023 10:20 AM CDT 50 mcg HYDROcodone-acetaminophen (Wilber) 5-325 MG tablet 1 tablet 1 tablet, [...] Sun04/13/23 at 0957, Until Sun04/13/23 at 170, Second choice, use if first choice was [...] Provider: Lida Green RN)0853 (Paused - Provider: MICHA Mancuso - Comment: Switch to gravity)0854 (Restarted - Provider: MICHA Mancuso)1003 (Anesthesia Volume Adjustment - Provider: MICHA Mancuso)1037 ($ New Bag/Syringe - Provider: Gosia Marvin [...] Given - Provider: Gosia Marvin RN) HYDROcodone-acetaminophen (Wilber) 5-325 MG tablet 1 tablet 1 tablet, [...] PACU documented in this encounter Care Teams Staff Mine Warfare Officer Relationship Specialty Start Date End Date None, Physician [address] [place] [address] PCP - General 12/19/22 09/16/23 documented as of this encounter
--- OUTSIDE RECORDS SUMMARY | 2024-08-10 03:29 | XMS_ITS | Encounter Summary ---
Author Organization [facility] Address [address] [place] [address] Care Team Providers Care Motorbike Courier Name Role Phone Geofftatijamila Mady Primary Care Provider Un available Encounter Details Date Type Department Care Team (Latest Contact Info) Description 04/26/2024 Travel Social History Tobacco Use Types Packs/Day [...] Recorded Patient Health Questionnaire-2 Score 6 02/03/2024 [facility] - Occupational Stress [...] slept in a penitentiary (including now)? Yes 02/16/2024 Sex and Gender [...] on filedocumented in this encounter Care Teams Motorbike Courier Relationship Specialty Start Date End Date Mady Sullivan PCP - General 02/03/24 documented as of this encounter
--- OUTSIDE RECORDS SUMMARY | 2024-08-10 03:29 | XMS_ITS | Encounter Summary ---
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 regular, rate 60's, no murmur. PULM adequate respiratory effort, lungs clear. ABD soft and non-tender. EXT without bony tenderness or pain with PROM, radial and DP pulses intact. NEURO slow to respond,arouses to tactile stimuli but falls asleep during questioning, slurred speech and inconsistent answers to questions. [facility] ED course Pulse ox 99% RA EMR reviewed - multiple ED visits and psychiatric hospitalizations, variously diagnosed as bipolar,borderline personality disorder, schizoaffective, SIMD. Some difficulty in getting labs Psych consulted when able to engage in interview Signed out to Dr. 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 [facility] [place] [facility] [place] and got a ride to bus stop had foreign exchange clerk call EMS again to go to [facility] pt is on room air VSS AO4 VISITS NURSE documented in this encounter Plan of Treatment Not on file documented as of this encounter Procedures Procedure Name Priority Date/Time Associated Diagnosis Comments URINE DRUG SCREEN IMMUNOASSAY STAT 06/19/2024 8:17 AM HOME VISITS NURSE CBC W AUTO DIFFERENTIAL STAT 06/19/2024 8:06 AM HOME VISITS NURSE COMPREHENSIVE METABOLIC PANEL STAT 06/19/2024 8:06 AM HOME VISITS NURSE ALCOHOL ETHYL BLOOD STAT 06/19/2024 8 :06 AM HOME VISITS NURSE documented in this encounter Results * (ABNORMAL) URINE DRUG SCREEN IMMUNOASSAY (06/19/2024 8:17 AM HOME VISITS NURSE) [facility] Amphetamines Screen Urine Positive(A) Negative : < 1000 ng/mL 06/19/2024 8:51 AM [facility] Comment: Positive urine amphetamine screening results should be confirmed by another generally accepted non-immunological method such as gas chromatography or mass spectrometry. ? Barbiturates Screen Urine Negative Negative : < 200 ng/mL 06/19/2024 8:51 AM [facility] Benzodiazepine Screen Urine Negative Negative : < 200 ng/mL 06/19/2024 8:51 AM [facility] Opiates Urine Negative Negative : < 300 ng/mL 06/19/2024 8:51 AM [facility] Cocaine Metabolites Urine Negative Negative : < 300 ng/mL 06/19/2024 8:51 AM [facility] Phencyclidine Screen Urine Negative Negative : < 25 ng/ml 06/19/2024 8:51 AM [facility] Cannabinoids Screen Urine Negative Negative : <50 ng/mL 06/19/2024 8:51 AM [facility] Methadone Screen Urine Negative Negative : < 300 ng/mL 06/19/2024 8:51 AM [facility] Fentanyl Screen Urine Negative Negative : <1.5 ng/mL 06/19/2024 8:51 AM [facility] Urine URINE / Unknown Collection / Unknown 06/19/2024 8:17 AM HOME VISITS NURSE 06/19/2024 8:24 AM [facility] - 06/19/2024 8:51 AM HOME VISITS NURSE The Urine Toxicology Screening Panel does not screen for Propoxyphene, Meprobamate, Carisoprodol, Trazodone, hmjy-ekj-tzjwvtx medications and/or volatiles (Acetone, Isopropanol, Methanol or Ethylene Glycol). Ethanol, Salicylate, Acetaminophen, Tricyclic Antidepressants and several therapeutic drugs may be individually assayed in serum or plasma specimen. Toxicology testing by the [facility] is an aid to medical diagnosis and treatment of patients. No documented chain of custody was maintained. Results are intended to be used for clinical purposes only. ? Dorothy Miranda MD LAB - URINE CHEMISTR Y ORDERABLES Performing Organization Address City/State/[facility] Co de Phone Number [facility] [address] [place] [phone], [facility] [phone] * ALCOHOL ETHYL BLOOD (06/19/2024 8:06 AM HOME VISITS NURSE) Ethanol (mg/dL) <10 <10 mg/dL 8:49 AM [facility] Ethanol Calculated (g/dL) <0.010 <=0.010 g/dL 06/19/2024 8:49 AM [facility] Blood BLOOD SPECIMEN / Unknown Venipuncture / Unknown 06/19/2024 8:06 AM HOME VISITS NURSE 06/19/2024 8:21 AM HOME VISITS NURSE Narrative [facility] - 06/19/2024 8:49 AM HOME VISITS NURSE Ethanol Interp <10: None Detected. Depression of ROAD ROLLER OPERATOR: >100 mg/dl Potentially Critical: >250 mg/dl [...] Miranda MD LAB - CHEMISTRY AMANDA MELENDREZ [facility] [address] [place] [address], [facility] [phone] * (ABNORMAL) COMPREHENSIVE METABOLIC PANEL (06/19/2024 8:06 AM [facility]) BUN 13 7 - 26 mg/dL 06/19/2024 8:49 AM [facility] Creatinine 0.95 0.71 - 1.16 mg/dL 06/19/2024 8:49 AM [facility] Sodium 140 136 - 145 mmol/L 06/19/2024 8:49 AM [facility] Potassium 4.0 3.5 - 4.5 mmol/L 06/19/2024 8:49 AM [facility] Chloride 111(H) 98 - 107 mmol/L 06/19/2024 8:49 AM [facility] CO2 23 22 - 29 mmol/L 06/19/2024 8:49 AM [facility] Glucose 72 70 - 99 mg/dL 06/19/2024 8:49 AM [facility] Calcium 8.8 8.4 - 10.2 mg/dL 06/19/2024 8:49 AM [facility] Protein Total 7.1 6.0 - 8.3 g/dL 06/19/2024 8:49 AM [facility] Albumin 3.3(L) 3.4 - 5.0 g/dL 06/19/2024 8:49 AM [facility] Bilirubin Total 0.4 0.2 - 1.2 mg/dL 06/19/2024 8:49 AM [facility] Alkaline Phosphatase 68 40 - 150 U/L 06/19/2024 8:49 AM [facility] ALT 22 5 - 55 U/L 06/19/2024 8:49 AM [facility] AST 21 5 - 34 U/L 06/19/2024 8:49 AM [facility] Anion Gap 6 6 - 16 06/19/2024 8:49 AM [facility] BUN/Creatinine Ratio 14 7 - 23 06/19/2024 8:49 AM [facility] Osmolality Calculated 289 275 - 295 mOsm/kg 06/19/2024 8:49 AM [facility] Albumin/Globulin Ratio 0.9(L) 1.1 - 2.3 06/19/2024 8:49 AM [facility] eGFR by CKD-EPI >90 >=90 mL/min/1.7 3 m2 06/19/2024 8:49 AM [facility] Blood BLOOD SPECIMEN / Unknown Venipuncture / Unknown 06/19/2024 8:06 AM HOME VISITS NURSE 06/19/2024 8:21 AM HOME VISITS NURSE Dorothy Miranda MD LAB - CHEMISTRY AMANDA MELENDREZ [facility] Organization Address City/State/ZIP Co de Phone Number [address] [phone] [phone] * (ABNORMAL) CBC W AUTO DIFFERENTIAL (06/19/2024 8:06 AM HOME VISITS NURSE) WBC 2.9(L) 4.0 - 10.7 x10E9/L 06/19/2024 8:24 AM [facility] RBC Count 5.19 4.30 - 5.80 x10E12/L 06/19/2024 8:24 AM [facility] Hemoglobin 12.9(L) 13.3 - 17.5 g/dL 06/19/2024 8:24 AM [facility] Hematocrit 40.6 38.7 - 51.1 % 06/19/2024 8:24 AM [facility] MCV 78.2(L) 80.0 - 98.0 fL 06/19/2024 8:24 AM [facility] MCH 24.9(L) 26.7 - 33.6 pg 06/19/2024 8:24 AM [facility] MCHC 31.8 31.7 - 36.3 g/dL 06/19/2024 8:24 AM [facility] RDW-CV 15.6(H) 11.3 - 14.8 % 06/19/2024 8:24 AM [facility] Platelet Count 311 150 - 420 x10E9/L 06/19/2024 8:24 AM [facility] MPV 8.9 7.8 - 11.4 fL 06/19/2024 8:24 AM [facility] Neutrophil % 50.0 41.0 - 74.0 % 06/19/2024 8:24 AM [facility] Lymphocyte % 38.6 17.0 - 47.0 % 06/19/2024 8:24 AM [facility] Monocyte % 3.2 3.0 - 11.0 % 06/19/2024 8:24 AM [facility] Eosinophil % 7.4(H) 0.0 - 7.0 % 06/19/2024 8:24 AM [facility] Basophil % 0.4 0.0 - 1.6 % 06/19/2024 8:24 AM [facility] Immature Granulocytes % 0.4 0.0 - 1.0 % 06/19/2024 8:24 AM [facility] Neutrophil Absolute 1.43(L) 1.60 - 7.50 x10E9/L 06/19/2024 8:24 AM [facility] Lymphocyte Absolute 1.10 1.00 - 4.40 x10E9/L 06/19/2024 8:24 AM [facility] Monocyte Absolute 0.09(L) 0.15 - 1.00 x10E9/L 06/19/2024 8:24 AM [facility] Eosinophil Absolute 0.21 0.00 - 0.60 x10E9/L 06/19/2024 8:24 AM [facility] Basophil Absolute 0.01 0.00 - 0.13 x10E9/L 06/19/2024 8:24 AM [facility] Blood BLOOD SPECIMEN / Unknown Venipuncture / Unknown 06/19/2024 8:06 AM HOME VISITS NURSE 06/19/2024 8:22 AM [facility] Dorothy Miranda MD LAB - HEMATOLOGY ORD ERABLES [facility] [address] [place] [address], [facility] [phone] documented in this encounter Visit Diagnoses Diagnosis Suicidal ideation documented in this encounter Care Teams Inventory And Pricing Associate Relationship Specialty Start Date End Date Mady Sullivan PCP - General 02/03/24 documented as of this encounter
--- OUTSIDE RECORDS SUMMARY | 2024-08-10 03:30 | XMS_ITS | Encounter Summary ---
Author Organization [facility] Address [address] [place] [address] Care Team Providers Care Rolloff Driver Name Role Phone None, Physician Primary Care Provider Unavailabl e Reason for Referral * Radiology Services (Routine) - Closed Specialty Diagnoses / Procedures Referred By Contac t Referred To Contact CT Scan Diagnoses Inguinal hernia without obstruction or gangrene, recurrence not specified, unspecified laterality Procedures CT ABDOMEN PELVIS WO CONTRAST Job Ponce MD [address] [place] [id number] Referral ID Status Reason Start Date Expiration Date Visits Re quested Visits Authorized [id number] Closed 01/04/2023 02/03/2023 1 1 Reason for Visit * Reason Comments Inguinal Hernia New patient Encounter Details Date Type Department Care Team (Late st Contact Info) Description 12/19/2022 1:45 PM CDT Office Visit [facility] - General Surgery [address] [place] [phone] Job Ponce MD [address] [place] [phone] Inguinal hernia without obstruction or gangrene, recurrence not specified, unspecified laterality (Primary Dx); HIV infection, asymptomatic (HCC) Social History Tobacco [...] PM CDT documented as of this encounter Last Filed Vital Signs Vital Sign Reading Time Taken Comments Blood Pressure 124/88 12/19/2022 1:48 PM CDT Pulse 100 12/19/2022 1:48 PM CDT Temperature 37 ??C (98.6 ??F) 12/19/2022 1:48 PM CDT Respiratory Rate 20 12/19/2022 1:48 PM CDT Oxygen Saturation 99% 12/19/2022 1:48 PM CDT Inhaled Oxygen Concentration - - Weight 76.2 kg (168 lb) 12/19/2022 1:48 PM CDT Height 182.9 cm (6') 12/19/2022 1:48 PM CDT Body Mass Index 22.78 12/19/2022 1:48 PM CDT documented in this encounter H&P Notes * Conner Ferguson, DO - 12/19/2022 2:12 PM CDT General Surgery Clinic History and Physical Patient Name: Phil Chase Jr. Age/Gender: 27 year old male : 1995 Chief Complaint: right inguinal hernia HPI: Phil Chase Jr. is a 27 year old male with PMH of anxiety and HIV (on Biktarvy) who presents for evaluation of a right inguinal hernia. He reports the presence of a right groin bulge for 8-10 years, though it has significantly increased in size over the past 6 months. He describes constantaching pain around the hernia that is aggravated by coughing and having bowel movements. He recently presented to the [facility] ED on 12/14/22 due to severe pain and at that time a CTa/p was obtained that reportedly showed a large bowel-containing right inguinal hernia without evidence of obstruction (patient brought scan disc to appointment today however only hand buffer images were uploaded). He denies constipation though sometimes is hesitant to have bowel movements due to the discomfort. Additionally denies recent fevers, chills, nausea, vomiting and dysuria/hematuria. He is a non-smoker and hasno history of abdominal/pelvic surgical intervention. He does not take any blood-thinning medications. Social History Tobacco Use ??? Smoking status: Never ??? Smokeless tobacco: Never Substance Use Topics ??? Alcohol use: Not Currently Comment: social ??? Drug use: Not Currently Types: Marijuana No family history on file. REVIEW OF SYSTEMS Constitutional: As per HPI Eyes: Negative for visual changes CV: Negative for chest pain Pulm: Negative for dyspnea GI: As per HPI : Negative for dysuria, hematuria MSK: Negative for myalgias, arthralgias Skin: Negative for skin changes Neuro: Negative for weakness Remainder of ROS negative unless documented in HPI PHYSICAL EXAM Vitals: 12/19/22 1348 BP: 124/88 Pulse: 100 Resp: 20 Temp: 98.6 ??F (37 ??C) SpO2: 99% Weight: 76.2 kg (168 lb) Height: 1.829 m (6') Estimated body mass index is 22.78 kg/m?? as calculated from the following: Height as of this encounter: 1.829 m (6'). Weight as of this encounter: 76.2 kg (168 lb). Gen: NAD HEENT: AT/NC, EOMI, oropharynx clear CV: RRR Pulm: unlabored respirations Abd/Pelvis: abdomen soft, non-distended, non-tender. Large right inguinal hernia with intrascrotal component, partially reducible, mildly tender to palpation, no overlying erythema or other skin changes MSK: WWP, no c/c/e Neuro: moving all extremities, no focal deficits Psych: appropriate mood and affect Imaging: CT abdomen/pelvis with IV contrast - obtained at [facility] on 12/14/22; patient brought disc to clinic however only hand buffer films were uploaded onto the disc Assessment and Plan: Phil Chase JrKaveh is a 27 year old male with large right symptomatic inguinal hernia with significant intrascrotal component, partially reducible on exam, with no associated GI obstruction. Spoke with patient and his mother about a plan for robot-assisted laparoscopic inguinal hernia repair with mesh placement. Risks, benefits and alternatives were discussed, with risks including but not limited to pain, infection, bleeding, damage to surrounding structures, need for additional procedures andrisks of anesthesia such as blood clots, stroke, heart attack and . He voices understanding and wishes to proceed with the operation. Given the size of the [facility] CTa/p to better evaluate hernia anatomy/contents for preoperative planning. - CTa/p with IV contrast ordered - Schedule for robotic right inguinal hernia repair with mesh placement Staff: Dr. Kris Ferguson, DO General Surgery PGY-2 12/19/2022 2:12 PM Associated attestation - Job Ponce MD - 12/20/2022 8:57 AM CDT I have verified the documentation of the resident, including all history, exam, and medical decision-making details. I have personally performed a physical exam and have personally reviewed all pertinent records available to me to support my medical decision-making as outlined in the resident???s note, and I arrive independently at the same conclusion. documented in this encounter Miscellaneous Notes * Addendum Note - Job Ponce MD - 01/04/2023 12:09 PM CDTAddended by: JOB PONCE on: 01/04/2023 12:09 PM Modules accepted: Orders documented in this encounter Plan of Treatment Not on file documented as of this encounter Procedures Procedure Name Priority Date/Time Associated Diagnosis Comments CD4 (ABSOLUTE T4) Routine 01/04/2023 4:3 6 PM CDT HIV infection, asymptomatic (HCC) documented in this encounter Results * CD4 (ABSOLUTE T4) (01/04/2023 4:36 PM CDT) CD4 see scanned report 01/09/2023 12:[address] [facility] ([facility]) Blood BLOOD SPECIMEN / Unknown Lab Venipuncture / Unknown 01/04/2023 4:36 PM CDT 01/04/2023 5:02 PM CDT Job Ponce MD LAB - HEMATOLOGY ORD ERABLES MAIKOL VARGAS [facility]) [address] [phone], [facility] * CT ABDOMEN PELVIS WO CONTRAST (01/04/2023 [...] > Dictated by Jeromy Garcia MD, PhD (resident services manager). I, Geovanny Nguyễn have personally reviewed and interpreted this examination/study. > Interpreting Provider: Geovanny Nguyễn on 01/05/2023 11:25 AM Narrative 01/05/2023 11:25 AM CDT PROCEDURE: ??CT ABDOMEN PELVIS WO CONTRAST, DATE/TIME OF EXAM: ??01/04/2023 4:16 PM, LOCATION ??[facility] INDICATION: K40.90: Inguinal hernia without [...] DATE/TIME OF EXAM: 01/04/2023 4:16 PM, LOCATION [facility] INDICATION: K40.90: Inguinal hernia without [...] > Dictated by Jeromy Garcia MD, PhD (resident services manager). I, Geovanny Nguyễn have personally reviewed and interpreted this examination/study. > Interpreting Provider: Geovanny Nguyễn on 01/05/2023 11:25 AM [address] ORDERABLES documented in this encounter Visit Diagnoses Diagnosis Inguinal hernia without obstruction or gangrene, recurrence not specified, unspecified laterality- Primary HIV infection, asymptomatic (HCC) Asymptomatic human immunodeficiency virus (HIV) infection status Inguinal hernia without obstruction or gangrene, recurrence not specified, unspecified laterality documented in this encounter Care Teams Rolloff Driver Relationship Specialty Start Date End Date None, Physician [address] [place] [address] PCP - General 12/19/22 09/16/23 documented as of this encounter
--- OUTSIDE RECORDS SUMMARY | 2024-08-10 03:30 | XMS_ITS | Encounter Summary ---
Author Organization [facility] Address [address] [place] [address] Care Team Providers Care Software Support Engineer Name Role Phone None, Physician Primary Care Provider Unavailabl e Reason for Visit * Reason Onset Date Comments Surgery Scheduling 12/22/2022 Encounter Details Date Type Department Care Team (Late st Contact Info) Description 12/22/2022 Telephone [facility] - General Surgery [address] [place] [phone] Natividad Ponce MD [address] [place], [place] [phone] Surgery Scheduling Social History Tobacco Use Types Packs/Day Years [...] on filedocumented in this encounter Care Teams Software Support Engineer Relationship Specialty Start Date End Date None, Physician [address] [place] [address] PCP - General 12/19/22 09/16/23 documented as of this encounter
--- OUTSIDE RECORDS SUMMARY | 2024-08-10 03:30 | XMS_ITS | Encounter Summary ---
Author Organization [facility] Address [address] [place] [place] [address] Care Team Providers Care Ex Assistant/Program Director Name Role Phone None, Physician Primary Care Provider Unavailabl e Reason for Visit * Reason Onset Date Comments Results 01/10/2023 Encounter Details Date Type Department Care Team (Late st Contact Info) Description 01/10/2023 Telephone [facility] SURGERY [address] [place], [place] [phone] Natividad Ponce MD [address] [place], [place] [phone] Results Social History Tobacco Use Types Packs/Day Years [...] encounter Miscellaneous Notes * Telephone Encounter - Natividad Ponce MD - 01/10/2023 1:12 PM CDT Spoke with Ms Lewis once the CD4 count report was available to me, count is 207 which is borderlineto proceed with elective surgery. Explained that I would like one more lab check to make sure it's going in the right direction before we proceed. She will find a lab closer to home where they get results in 1-2 days. We will fax the lab order there once she lets us know their information. documented in this encounter Plan of Treatment Not on file documented as of this encounter Visit Diagnoses Not on filedocumented in this encounter Care Teams Ex Assistant/Program Director Relationship Specialty Start Date End Date None, Physician [address] [place] [address] PCP - General 12/19/22 09/16/23 documented as of this encounter
--- OUTSIDE RECORDS SUMMARY | 2024-08-10 03:30 | XMS_ITS | Encounter Summary ---
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 x10'3/uL 03/28/2024 6:21 PM CDT [facility] ABS. BASOPHILS 0.01 0.01 - 0.08 x10'3/uL 03/28/2024 6:21 PM CDT [facility] ABS. 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 Scheduled Medication Order 03/27/2024 03/28/2024 03/29/2024 midazolam (VERSED) injection 2 mg (COMPLETED) 2 mg, Intramuscular, Once, 1 dose, On Sun03/28/24 at 1930 1944 (Given - Provider: Ruth Palomo RN) documented in this encounter Additional Health Concerns Infection Onset Date Last Indicated Resolved Time COVID-19 Rule Out 03/28/2024 03/28/2024 03/28/2024 7:00 PM CDT documented as of this encounter Care Teams Financial Services Rep Relationship Specialty Start Date End Date None, Provider, MD PCP - General UNKNOWN PHYSICIAN SPECIALTY 03/28/24 documented as of this encounter
--- OUTSIDE RECORDS SUMMARY | 2024-08-10 03:30 | XMS_ITS | Encounter Summary ---
Author Organization [facility] Address [address] [place] [address] Care Team Providers Care Child Care Attendant School Name Role Phone None, Physician Primary Care Provider Unavailabl e Reason for Visit * Radiology Services (Routine) - Closed Specialty Diagnoses / Procedures Referred By Contac t Referred To Contact CT Scan Diagnoses Inguinal hernia without obstruction or gangrene, recurrence not specified, unspecified laterality Procedures CT ABDOMEN PELVIS WO CONTRAST Natividad Ponce MD [address] [place] [address] Referral ID Status Reason Start Date Expiration Date Visits Re quested Visits Authorized [id number] Closed 01/04/2023 02/03/2023 1 1 Encounter Details Date Type Department Care Team (Late st Contact Info) Description 01/04/2023 4:00 PM CDT - 01/04/2023 4:05 PM CDT Hospital Encounter [facility] CAT SCAN [address] [place] [phone] Natividad Ponce MD [facility] [place], [place] [id number] Discharge Disposition: Home or Self Care Social [...] In the last 10 days, have rodney cummings been in contact with someone who was confirmed or suspected to have Coronavirus/COVID-19? No / Unsure 12/19/2022 1:40 PM CDT documented as of this encounter Medications at Time of Discharge Medication Sig Dispensed Refills Start Date End Date bictegravir-emtricitabi ne-tenofovir (Biktarvy) 50-200-25 MG Take 1 (one) tablet by mouth once daily 30 tablet 8 06/30/2022 06/13/2023 doxycycline hyclate (Vibramycin) 100 MG capsule Take 1 (one) capsule by mouth 2 times daily 12/13/2022 04/04/2023 gabapentin (Neurontin) 300 MG capsule Take 1 (one) capsule by mouth 3 times daily 06/30/2022 06/13/2023 sertraline (Zoloft) 50 MG tablet Take 1 (one) tablet by mouth once daily 11/06/2022 06/20/2023 sulfamethoxazole-trimet hoprim (Bactrim DS; Septra DS) 800-160 MG tablet Take 1 (one) tablet by mouth once daily 12/14/2022 04/04/2023 triamcinolone acetonide (Kenalog) 0.1 % ointment Apply to affected area 2 times daily 12/05/2022 06/13/2023 documented as of this encounter Plan of Treatment Not on file documented as of this encounter Procedures Procedure Name Priority Date/Time Associated Diagnosis Comments CT ABDOMEN PELVIS WO CONTRAST Routine 01/04/2023 4:11 PM CDT Inguinal hernia without obstruction or gangrene, recurrence not specified, unspecified laterality documented in this encounter Results * CT ABDOMEN PELVIS WO CONTRAST (01/04/2023 [...] Dictated by Jeromy Garcia MD, PhD (resident service coordinator). I, Geovanny Nguyễn have personally reviewed and interpreted this examination/study. > Interpreting Provider: Geovanny Nguyễn on 01/05/2023 11:25 AM Narrative 01/05/2023 11:25 AM CDT PROCEDURE: ??CT ABDOMEN PELVIS WO CONTRAST, DATE/TIME OF EXAM: ??01/04/2023 4:16 PM, LOCATION ??[facility] INDICATION: K40.90: Inguinal hernia without obstruction [...] island in the right ilium. Procedure Note eGovanny Nguyễn MD - 01/05/2023 PROCEDURE: CT ABDOMEN PELVIS WO CONTRAST, DATE/TIME OF EXAM: 01/04/2023 4:16 PM, LOCATION [facility] INDICATION: K40.90: Inguinal hernia without obstruction [...] Dictated by Jeromy Garcia MD, PhD (resident service coordinator). I, Geovanny Nguyễn have personally reviewed and interpreted this examination/study. > Interpreting Provider: Geovanny Nguyễn on 01/05/2023 11:25 AM [address]ad Ponce MD CT ORDERABLES documented in this encounter Visit Diagnoses Diagnosis Inguinal hernia without obstruction or gangrene, recurrence not specified, unspecified laterality documented in this encounter Care Teams Child Care Attendant School Relationship Specialty Start Date End Date None, Physician [address] [place] [address] PCP - General 12/19/22 09/16/23 documented as of this encounter
--- OUTSIDE RECORDS SUMMARY | 2024-08-10 03:30 | XMS_ITS | Encounter Summary ---
Author Organization [facility] Address [address] [facility] [place] [address] Care Team Providers Care Surgery Assistant Name Role Phone Unavailable Primary Care Provider Unavailabl e Reason for Visit * Reason Comments Anxiety 26 y/o M BIBEMS from c/o anxiety r/t multiple, new stressors including homeless and a lack of support group. Triage VS: BP 115/77, RR 18, 100% on RA, HR 80. Pt denies abdominal pain, chest pain, or SOB. Pt denies SI/HI but has a plan. Pt very tearful in triage. PMHx spinal cancer, anxiety, HIV. No home meds HOMELESS Encounter Details Date Type Department Care Team (Late st Contact Info) Description 06/26/2022 6:29 AM COATING AND EMBOSSING UNIT OPERATOR - 06/26/2022 6:53 AM [facility] Emergency [facility] EMERGENCY DEPARTMENT [address] [place] [phone] Fernando Eduardo MD [address] [place] [phone] Anxiety states; Exposure to HIV; Homelessness Discharge Disposition: Home or Self Care Social [...] Sign Reading Time Taken Comments Blood Pressure 115/77 06/26/2022 3:31 AM COATING AND EMBOSSING UNIT OPERATOR Pulse 80 06/26/2022 4:04 AM COATING AND EMBOSSING UNIT OPERATOR Temperature 36.4 ??C (97.6 ??F) 06/26/2022 3:31 AM CS T Respiratory Rate 18 06/26/2022 3:31 AM COATING AND EMBOSSING UNIT OPERATOR Oxygen Saturation 100% 06/26/2022 4:04 AM COATING AND EMBOSSING UNIT OPERATOR Inhaled Oxygen Concentration - - Weight 77.1 kg (170 lb) 06/26/2022 3:31 AM COATING AND EMBOSSING UNIT OPERATOR Height 182.9 cm (6') 06/26/2022 3:31 AM COATING AND EMBOSSING UNIT OPERATOR Body Mass Index 23.06 06/26/2022 3:31 AM COATING AND EMBOSSING UNIT OPERATOR documented in this encounter Discharge Instructions * Discharge Instructions* Germain Harvey MD - 06/26/2022 6:36 AM COATING AND EMBOSSING UNIT OPERATOR Follow up with your primary care physician for ongoing anxiety and HIV management. ING AND EMBOSSING UNIT OPERATOR documented in this encounter ED Notes * Rinku Dumas RN - 06/26/2022 6:49 AM CST Pt became verbally aggressive with staff members while being assessed by Jayce RUIZ and treatment team in triage room. Protective services called and patient escorted out of ED exit with discharge paperwork. Pt gait was steady without assistance. Proper discharge clothing. GCS 15, unlabored breathing. Unable to obtain vital signs given patient's behavior. ING AND EMBOSSING UNIT OPERATOR * Fernando Eduardo MD - 06/26/2022 6:30 AM CST ED Attending Note Patient seen as a team with the resident, Dr. Harvey, who has also contributed to this note. History: Phil Chase Jr. is a 26 year old male is presenting to the ED BIBEMS c/o anxiety. Patient states that he has recent new life stressors. Patient states that he was recently diagnosed with spinal cancer, exposure to HIV, and homeless. He states that he has lack of support. Patient states that he has been out of his Xanax, HIV medication, and Gabapentin. Patient is requesting housing resources. Patient denies a fever, chills, shortness of breath, and chest pain. He denies SI, HI, and AVH. Patient has no other complaints or modifying factors. No past medical history on file. No past surgical history on file. Social History Socioeconomic History ??? Marital status: Not on file Spouse name: Not on file ??? Number of children: Not on file ??? Years of education: Not on file ??? Highest education level: Not on file Occupational History ??? Not on file Tobacco Use ??? Smoking status: Never ??? Smokeless tobacco: Never Substance and Sexual Activity ??? Alcohol use: Not Currently Comment: social ??? Drug use: Not Currently Types: Marijuana ??? Sexual activity: Not on file Other Topics Concern ??? Not on file Social History Narrative ??? Not on file Social Determinants of Health Financial Resource Strain: Not on file Food Insecurity: Not on file Transportation Needs: Not on file Physical Activity: Not on file Stress: Not on file Social Connections: Not on file Intimate Partner Violence: Not on file Housing Stability: Not on file Review of Systems: Review of Systems Constitutional: Negative for chills, fever and malaise/fatigue. HENT: Negative for congestion, ear pain and sore throat. Eyes: Negative for blurred vision, pain and discharge. Respiratory: Negative for cough, shortness of breath and wheezing. Cardiovascular: Negative for chest pain and palpitations. Gastrointestinal: Negative for abdominal pain, diarrhea, nausea and vomiting. Genitourinary: Negative for dysuria, frequency and hematuria. Musculoskeletal: Negative for back pain, myalgias and neck pain. Skin: Negative for itching and rash. Neurological: Negative for dizziness, tingling, weakness and headaches. Psychiatric/Behavioral: Negative for depression and suicidal ideas. The patient is nervous/anxious. Patient Vitals for the past 6 hrs: Temp Pulse Resp BP 06/26/22 0404 -- 80 -- -- 06/26/22 0331 97.6 ??F (36.4 ??C) -- 18 115/77 Exam: Physical Exam Vitals and nursing note reviewed. Constitutional: General: He is not in acute distress. HENT: Head: Normocephalic and atraumatic. Mouth/Throat: Lips: [place]. Mouth: Mucous membranes are moist. Eyes: Extraocular Movements: Extraocular movements intact. Conjunctiva/sclera: Conjunctivae normal. Pupils: Pupils are equal, round, and reactive to light. Cardiovascular: Rate and Rhythm: Normal rate and regular rhythm. Pulses: Radial pulses are 2+ on the right side and 2+ on the left side. Dorsalis pedis pulses are 2+ on the right side and 2+ on the left side. Heart sounds: No murmur heard. No friction rub. No gallop. Pulmonary: Effort: Pulmonary effort is normal. No respiratory distress. Breath sounds: Normal breath sounds. No wheezing. Abdominal: General: Abdomen is flat. Bowel sounds are normal. There is no distension. Palpations: Abdomen is soft. Tenderness: There is no abdominal tenderness. Musculoskeletal: General: No deformity. Normal range of motion. Cervical back: Normal range of motion and neck supple. Skin: General: Skin is warm and dry. Findings: No bruising. Neurological: Mental Status: He is alert and oriented to person, place, and time. Comments: LEE spontaneously Psychiatric: Mood and Affect: Mood normal. Behavior: Behavior normal. Medical Decision Makin. Anxiety DDX: anxiety vs homelessness vs medication noncompliance vs other Plan: Provide housing resources Results: Labs Reviewed CBC W AUTO DIFFERENTIAL COMPREHENSIVE METABOLIC PANEL CD4 (ABSOLUTE T4) No orders to display ED course: (All Labs/Imaging/ECG, other diagnostics independently interpreted by me.) The patient's Oxygen Saturation Monitor was interpreted by me. The reading was 99%. The patient wason RA at the time of the reading. This is interpreted as normal. 6:35 AM Patient became agitated with the interview and was not answering questions. Provided patient with housing resources. Again, patient denies SI, HI, and AVH. Given return precautions. Instructed patient to follow up with his PCP. Patient is comfortable with the discharge plan. Plan for discharge. 6:36 AM: I have reviewed his diagnostic findings and he has had an opportunity to ask me any questions he has about care, diagnosis, and discharge plan. Patient is comfortable with the discharge plan. he will follow up as directed and will return to the ER if his condition worsens or if he developsother urgent concerns. Consult No Procedure done at this time No Ultrasound done at this time No Orders Placed This Encounter ??? CBC W AUTO DIFFERENTIAL ??? COMPREHENSIVE METABOLIC PANEL ??? CD4 (ABSOLUTE T4) ??? hydrOXYzine HCl (Atarax) tablet 25 mg Medications hydrOXYzine HCl (Atarax) tablet 25 mg (has no administration in time range) Clinical Impression: 1. Anxiety states 2. Exposure to HIV 3. Homelessness Disposition: Discharged By signing my name below, I, Gala Rhodes, attest that this documentation has been prepared under the direction and in the presence of Dr. Eduardo. Signed: Angel Kee. I, Dr. Eduardo, personally performed the services described in this documentation. All medical record entries made by the scribe were at my direction and in my presence. I have reviewed the chart and agree that the record reflects my personal performance and is accurate and complete. ING AND EMBOSSING UNIT OPERATOR documented in this encounter Plan of Treatment Not on file documented as of this encounter Visit Diagnoses Diagnosis Anxiety states Exposure to HIV Contact with or exposure to other viral diseases Homelessness Lack of housing documented in this encounter Active and Recently Administered Medications Times are shown in COATING AND EMBOSSING UNIT OPERATOR. Scheduled Medication Order 06/24/2022 06/25/2022 06/26/2022 hydrOXYzine HCl (Atarax) tablet 25 mg 25 mg, Oral, NOW, 1 dose, On Sun06/26/22 at 0400 0400 (Due) documented in this encounter
--- OUTSIDE RECORDS SUMMARY | 2024-08-10 03:30 | XMS_ITS | Encounter Summary ---
Author Organization [facility] Address [address] [place] [address] Care Team Providers Care Podiatrist Name Role Phone None, Physician Primary Care Provider Unavailabl e Encounter Details Date Type Department Care Team (Latest Contact Info) Description 12/19/2022 Travel Social History Tobacco Use Types Packs/Day [...] on filedocumented in this encounter Care Teams Podiatrist Relationship Specialty Start Date End Date None, Physician [address] [place] [address] PCP - General 12/19/22 09/16/23 documented as of this encounter
--- OUTSIDE RECORDS SUMMARY | 2024-08-10 03:30 | XMS_ITS | Clinical Summary ---
Author Organization [facility] Address [address] [place] [address]. [place], [place] [id number] [place] [id number] Care Team Providers Care Soaking Tank Worker Name Role Phone None, Provider MD Primary Care Provider Unavaila ble Allergies No known active allergies Medications No known medications Social History Tobacco Use Types Packs/Day Years [...] Mass Index 24.41 03/28/2024 5:31 PM CDT Plan of Treatment Health Maintenance Due Date Last Done Comments Annual Physical 1996 COVID-19 Vaccine ( season) 2024 Influenza Adult (#1) 2024 06/17/2023 DTaP, Tdap and Td Vaccines (7 - Td or Tdap) 06/27/2033 06/27/2023, 10/15/1998, 04/05/1995, Additional history exists Pneumococcal Vaccine: Pediatrics (0 to 5 Years) and At-Risk Patients (6 to 64 Years) Aged Out 08/06/2019, 08/06/2019 No longer eligibl e based on patient's age to complete this topic Hepatitis C Completed 06/27/2023 Hepatitis B Vaccines Completed 10/24/2023, 08/06/2019, 09/22/1998, Additional history exists HPV Vaccines Completed 11/02/2023, 12/2022, 03/21/2023 Meningococcal Vaccine Aged Out 11/02/2023, 006 No longer eligible based on patient's age to complete this topic RSV Immunizations Under 20 Months Aged Out No longer eligible based on patient's age to complete this topic Insurance [facility] Care Teams Soaking Tank Worker Relationship Specialty Start Date End Date None, Provider, PCP - General UNKNOWN PHYSICIAN SPECIALTY 03/28/24
--- OUTSIDE RECORDS SUMMARY | 2024-08-10 03:30 | XMS_ITS | CONTINUITY OF CARE DOCUMENT ---
Author Name patel sweeney Address Unknown Organization [facility] Address [address] [address] [facility] [address] [place] [address] Phone [phone] Care Team Providers Care Community Health Nurse Supervisor Name Role Phone Maris De Souza MD Unavailable Maris De Souza MD Unavailable INSURANCE PROVIDERS Payer name Policy type / Coverage type [place] red green party ID [id number] PAY MEDICAID [place] Medicaid [id number]
--- OUTSIDE RECORDS SUMMARY | 2024-08-10 03:30 | XMS_ITS | Encounter Summary ---
Author Organization [facility] Address [address] [facility] [place] [address] Care Team Providers Care Engineer System Administrator Name Role Phone None, Physician Primary Care Provider Unavailabl e Encounter Details Date Type Department Care Team (Latest Contact Info) Description 01/04/2023 Travel Social History Tobacco Use Types Packs/Day [...] on filedocumented in this encounter Care Teams Engineer System Administrator Relationship Specialty Start Date End Date None, Physician [address] [place] [address] PCP - General 12/19/22 09/16/23 documented as of this encounter
--- OUTSIDE RECORDS SUMMARY | 2024-08-10 03:30 | XMS_ITS | Encounter Summary ---
Author Organization [facility] Address [address] [place] [address] Care Team Providers Care Tax Audit Manager Name Role Phone Unavailable Primary Care Provider [...] to have Coronavirus/COVID-19? No / Unsure 12/05/2022 11:35 AM CDT documented as of this encounter Plan of Treatment Not on file documented as of this encounter Visit Diagnoses Not on filedocumented in this encounter
--- OUTSIDE RECORDS SUMMARY | 2024-08-10 03:30 | XMS_ITS | Encounter Summary ---
Author Organization [facility] Address [address] [place] [address]. [place] [id number] [place], [place] [id number] Care Team Providers Care Direct Support Worker Name Role Phone None, Provider Primary Care Provider Unavaila ble Encounter [...] filedocumented in this encounter Additional Health Concerns Infection Onset Date Last Indicated Resolved Time COVID-19 Rule Out 03/28/2024 03/28/2024 03/28/2024 7:00 PM CDT documented as of this encounter Care Teams Direct Support Worker Relationship Specialty Start Date End Date None, Provider, PCP - General UNKNOWN PHYSICIAN SPECIALTY 03/28/24 documented as of this encounter
--- OUTSIDE RECORDS SUMMARY | 2024-08-10 03:30 | XMS_ITS | Encounter Summary ---
Author Organization [facility] Address [address] [facility] [place] [address] Care Team Providers Care Coagulant Dipper Name Role Phone None, Physician Primary Care Provider Unavailabl e Encounter Details Date Type Department Care Team (Late st Contact Info) Description 01/04/2023 4:06 PM CDT - 01/04/2023 11:59 PM CDT Hospital Encounter [facility] OP DRAW STATION [address] [place] [id number] Natividad Ponce MD [address] [place], [place] [id number] Discharge Disposition: Home or Self Care Social [...] on filedocumented in this encounter Care Teams Coagulant Dipper Relationship Specialty Start Date End Date None, Physician [address] [place] [address] PCP - General 12/19/22 09/16/23 documented as of this encounter
--- OUTSIDE RECORDS SUMMARY | 2024-08-10 03:30 | XMS_ITS | Encounter Summary ---
Author Organization [facility] Address [address] [place] [address] Care Team Providers Care Die Attaching Machine Tender Name Role Phone None, Physician Primary Care Provider Unavailabl e Reason for Visit * Auth/Cert (Routine) Specialty Diagnoses / Procedures Referred By Contac t Referred To Contact Diagnoses Diagnosis unknown Diagnosis unknown [R69] Procedures ROBOTIC ASSISTED REPAIR INGUINAL HERNIA Referral ID Status Reason Start Date Expiration Date Visits Re quested Visits Authorized [id number] 1 1 Encounter Details Date Type Department Care Team (Late st Contact Info) Description 01/05/2023 8:20 AM CDT - 01/05/2023 9:14 AM CDT Hospital Encounter [facility] [address] [place] [address] Natividad Ponce MD [address] [place] [address] Surgical Day Care Discharge Disposition: Home or Self Care Social History Tobacco Use Types Packs/Day Years Used Date Smoking Tobacco: Never Smokeless Tobacco: Never Tobacco Cessation:Counseling Given: Yes Alcohol Use Standard Drinks/Week Comments Not Currently [...] Sign Reading Time Taken Comments Blood Pressure - - Pulse - - Temperature - - Respiratory Rate - - Oxygen Saturation - - Inhaled Oxygen Concentration - - Weight 76.2 kg (168 lb) 01/02/2023 3:34 PM CDT Height 182.9 cm (6') 01/02/2023 3:34 PM CDT Body Mass Index 22.78 01/02/2023 3:34 PM CDT documented in this encounter Medications at [...] on filedocumented in this encounter Care Teams Die Attaching Machine Tender Relationship Specialty Start Date End Date None, Physician [address] [place] [address] PCP - General 12/19/22 09/16/23 documented as of this encounter
--- OUTSIDE RECORDS SUMMARY | 2024-08-10 03:31 | XMS_ITS | Clinical Summary ---
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 - 06/27/2024 8:58 PM [facility] Emergency [facility] Emergency Department [address] [place] [phone] Onur Johnson MD Right leg numbness (Primary Dx); Foot drop, right Discharge Disposition: Discharge to home or self care 06/26/2024 9:44 AM MINER HELPER - 06/26/2024 12:21 PM [facility] Emergency [facility] Emergency Department [address] [place] [phone] Chas Friedman MD Viral URI with cough (Primary Dx) Discharge Disposition: Discharge to home or self care 06/20/2024 Telephone [facility] [address] [place] [phone] Tj Patel RPh 06/18/2024 11:54 PM MINER HELPER - 06/19/2024 12:31 AM [facility] Emergency [facility] Emergency Department [address] [place] [phone] Suicidal ideation (Primary Dx); Substance use disorder Discharge Disposition: Discharge to home or self care 06/13/2024 Telephone [facility] [address] [place] [phone] Tj Patel RPh 06/12/2024 SHOP/CHAP Initial Outreach [facility] OP CASE MANAGEMENT [address] [place] [phone] Nguyen Stephenson, VICTOR MANUEL 06/10/2024 SHOP/CHAP Initial Outreach [facility] OP CASE MANAGEMENT [address] [place] [phone] Nguyen Stephenson, VICTOR MANUEL 06/09/2024 SHOP/CHAP Initial Outreach [facility] OP CASE MANAGEMENT [address] [place] [phone] Nguyen Stephenson, VICTOR MANUEL 06/09/2024 SHOP/CHAP Initial Eligibility Review [facility] OP CASE MANAGEMENT [address] [place] [phone] Nguyen Stephenson, VICTOR MANUEL 06/08/2024 Telephone [facility] 3rd Floor [address] [place] [phone] Ngozi Payne MD 06/05/2024 Ophth Exam [facility] [address] [place] [address] 1[address] [place] [phone] Cuco Chavarria MD 06/02/2024 9:09 AM MINER HELPER - 06/07/2024 1:03 PM [facility]ER HELPER Hospital Encounter [address] [phone] Calvin Sainz MD Blustein, MD Chucky Scruggs, MD Dru Sarmiento, MD Paul Tristan, Rahel Almodovar MD Intentional benzodiazepine overdose, initial encounter (HCC) (Primary Dx); Diarrhea, unspecified type; Respiratory acidosis; Nonadherence to medication; Low CD4 cell count determined by flow cytometry; Borderline personality disorder (CMS/HCC) (HCC) [F60.3]; HIV infection, unspecified symptom status ([facility]) Discharge Disposition: Discharge to home or self care 05/10/2024 6:44 AM CDT - 05/10/2024 10:40 AM CDT Emergency [facility] Emergency Department [address] [place] [phone] Benny Newell MD Depression, unspecified depression type (Primary Dx); Borderline personality disorder ([facility]) ([facility]) Discharge Disposition: Discharge to home or self care from Last 3 Months Immunizations Name Administration Dates Next Due DTaP 10/15/1998, 5,05/18/1994,02/23,1993 HPV9 06/27/2023,03/21/2023 Hep A, Pediatric 10/05/2005 Hep B Vaccine 10/24/2023,08/06/2019 Hep B, Unspecified 09/22/1998,04/10/1994, 994 Hib (PRP-T) 04/05/1995, 4,02/23/1994,11/28 IPV 02/05/2003 Influenza, Quadrivalent, Spl it, Preservative Free, Intramuscular 06/17/2023 MMR 10/15/1998,10/19/1994 Meningococcal MCV4P (Menactra) 10/05/2005 OPV 05/18/1994,02/23/1994,1993 Pneumococcal Conjugate PCV 13 08/06/2019 Pneumococcal Polysaccharide PPV23 08/06/2019 Polio, Unspecified 11/18/1996 Tdap 06/27/2023 Varicella 11/18/1996 Surgical History Surgery Date Site/Laterality Comments LUMBAR PUNCTURE WO INJECTION, DIAGNOSTIC 10/12/2023 N/A Medical History Medical History Date Comments HIV (human immunodeficiency virus infection) (HCC) Neuropathy (CMS/[facility]) Methamphetamine use disorder , moderate, in early remission ([facility]) Syphilis (acquired) Rx'd with 3 IM doses of Penicillni per patient Depression with suicidal ideation PTSD (post-traumatic stress disorder) Borderline personality disor adalid (CMS/[facility]) ([facility]) HIV (human immunodeficiency virus infection) ([facility]) Dx 2018 Anal warts Depression prior suicide at [facility] (10/2023, 02/2024) Family History Medical History Relation Name Comments Suicide Completion Father overdose Father Diabetes type II Maternal Grandmother Hypertension Maternal Grandmother Relation Name Status Comments Father Maternal Grandmother Mother Alive Sister 1 Alive Sister 2 Alive Sister 3 Alive Social History Tobacco Use Types Packs/Day Years Used Date Smoking Tobacco: Former Cigarettes Passive Smoke Exposure: Current Smokeless Tobacco: Never Tobacco Cessation:Counseling Given: No [facility] Utilities Answer Date Recorded In the past 12 months has e [employer], [employer], oil, or water [employer] ([employer]) threatened to shut off services in your home? Patient declined 07/08/2024 Humiliation, Afraid, Rape, and Kick questionnair e Answer Date Recorded Within the last year, have y ou been afraid of your partner or ex-partner? Patient declined 07/05/2024 Within the last year, have y ou been humiliated or emotionally abused in other ways by your partner or ex-partner? Patient declined 07/05/2024 Within the last year, have y ou been kicked, hit, slapped, or otherwise physically hurt by your partner or ex-partner? Patient declined 07/05/2024 Within the last year, have y ou been raped or forced to have any kind of sexual activity by your partner or ex-partner? Patient declined 07/05/2024 Social Connection and Isolation Panel [NHANES] A nswer Date Recorded In a typical week, how many times do you talk on the phone with family, friends, or neighbors? Patient declined 07/08/2024 How often do you get togethe r with friends or relatives? Patient declined 07/08/2024 How often do you attend caodaism or voodoo serv ices? Patient declined 07/08/2024 Do you belong to any clubs o r organizations such as caodaism groups, unions, fraternal or athletic groups, or school groups? Patient declined 07/08/2024 How often do you attend meet ings of the clubs or organizations you belong to? Patient declined 07/08/2024 Are you , , di vorced, , never , or living with a partner? Patient declined 07/08/2024 AUDIT-C Answer Date Recorded Q1: How often do you have a drink containing alc ohol? Patient declined 07/05/2024 Q2: How many drinks containi ng alcohol do you have on a typical day when you are drinking? Patient declined 07/05/2024 Q3: How often do you have si x or more drinks on one occasion? Patient declined 07/05/2024 Overall Financial Resource Strain (CARDIA) Answe r Date Recorded How hard is it for you to pa y for the very basics like food, housing, medical care, and heating? Patient declined 07/08/2024 PHQ-2 Answer Date Recorded PHQ-2 Total Score 4 [facility]07[facility] - Occupational Stress Questionnaire Answer Date Recorded Do you feel stress - tense, restless, nervous, or anxious, or unable to sleep at night because your mind is troubled all the time - these days? Patient declined 07/05/2024 Exercise Vital Sign Answer Date Recorde d On average, how many days pe r week do you engage in moderate to strenuous exercise (like a brisk walk)? Patient declined On average, how many minutes do you engage in exercise at this level? Patient declined 07/05/2024 Hunger Vital Sign Answer Date Recorded Within the past 12 months, y ou worried that your food would run out before you got the money to buy more. Patient declined Within the past 12 months, t he food you bought just didn't last and you didn't have money to get more. Patient declined PRAPARE - Transportation Answer Date Re corded In the past 12 months, has l ack of transportation kept you from medical appointments or from getting medications? Patient declined 07/08/2024 In the past 12 months, has l ack of transportation kept you from meetings, work, or from getting things needed for daily living? Patient declined 07/08/2024 Housing Stability Vital Sign Answer Jerrod e Recorded In the last 12 months, was t here a time when you were not able to pay the mortgage or rent on time? No 10/15/2023 In the last 12 months, how many places have you lived? 2 10/15/2023 In the last 12 months, was t here a time when you did not have a steady place to sleep or slept in a group home (including now)? No 10/15/2023 Housing Stability Vital Sign Answer Jerrod e Recorded In the last 12 months, was t here a time when you were not able to pay the mortgage or rent on time? Patient declined 07/08/20 24 In the past 12 months, how m any times have you moved where you were living? 5 07/08/2024 At any time in the past 12 m [facility], were you homeless or living in a group home (including now)? Patient declined 07/08/2024 Personal Safety Answer Date Recorded Have you ever been in or are you currently in a harmful physical or emotional relationship or is someone making you feel afraid or unsafe? Denies 08/04/2024 Education Answer Date Recorded What is the highest level of school you have completed or the highest degree you have received? Bachelor's degree (e.g., BA, AB, BS) 02/24/2024 Sex and Gender Information Value Date Recorded Sex Assigned at Not on file Legal Sex Male 11:02 PM MINER HELPER Gender Identity Not on file Sexual Orientation Not on file Occupation Industry Job Start Date Job End Date unemployed Not on file Not on file Not on file Obstetrics History Last Filed Vital Signs Vital Sign Reading Time Taken Comments Blood Pressure 132/89 08/04/2024 6:13 AM MINER HELPER Pulse 91 08/04/2024 6:13 AM MINER HELPER Temperature 36.4 ??C (97.6 ??F) 08/04/2024 6:13 AM CS T Respiratory Rate 18 08/04/2024 6:13 AM MINER HELPER Oxygen Saturation 100% 08/04/2024 6:13 AM MINER HELPER Inhaled Oxygen Concentration - - Weight 74.4 kg (164 lb) 08/04/2024 6:13 AM MINER HELPER Height 182.9 cm (6') 08/04/2024 6:13 AM MINER HELPER Body Mass Index 22.24 08/04/2024 6:13 AM MINER HELPER Plan of Treatment Health Maintenance Due Date Last Done Comments HLA B 5701 Typing 1993 T Spot (quantiferon gold) 1993 Varicella Vaccines (2 of 2 - 2-dose childhood series) 1997 11/18/1996 HIV+ Chlamydia and Gonorrhea Screening (Rectal) 2004 HIV+ Chlamydia and Gonorrhea Screening (Throat) 2006 G6PD 09/22/2011 Regular Well Visit/Exam 18-64 09/22/2011 Hepatitis A Vaccines (1 of 2 - Risk 2-dose series) 2012 10/05/2005 Zoster Vaccine (1 of 2) 2012 Hemoglobin A1C 08/01/2018 08/01/2017 HPV Vaccines (3 - Risk 3-dos e SCDM series) 10/27/2023 06/27/2023, 03/21/2023 Influenza Vaccine (#1) 2024 06/17/2023 Pneumococcal vaccine <65 (3 of 3 - PPSV23 or PCV20) 08/06/2024 08/06/2019, 08/06/2019 Depression Screening 04/04/2025 04/04/2024, 04/04/2024, 02/23/2024, Additional history exists Lipid Panel 06/02/2025 06/02/2024, 01/21, 01/17/2024, Additional history exists RPR Screening 07/03/2025 07/03/2024, 05/23, 04/14/2024, Additional history exists HIV + Chlamydia and Gonorrhe a Screening (Urine) 07/05/2025 07/05/2024 Hepatitis A Screening 07/05/2025 07/05/2024, 024 Hepatitis C Screening 07/05/2025 07/05/2024 , 06/04/2024, 04/08/2024, Additional history exists Proteinuria screening ? Urinalysis (UA) 08/04/2025 08/04/2024, 07/08/2024, 07/08/2024, Additional history exists DTaP/Tdap/Td Vaccine (7 - Td or Tdap) 06/27/2033 06/27/2023, 10/15/1998, 04/05/1995, Additional history exists Hepatitis B Vaccines Completed 10/24/2023, 08/06/2019, 09/22/1998, Additional history exists Procedures Procedure Name Priority Date/Time Associated Diagnosis Comments DRUGS OF ABUSE SCREEN, URINE WITHOUT CONFIRMATION STAT 08/04/2024 9:17 AM MINER HELPER URINALYSIS AND REFLEX TO MICROSCOPIC AND CULTURE STAT 08/04/2024 9:17 AM MINER HELPER EGFR STAT 08/04/2024 7:45 AM MINER HELPER DIFFERENTIAL AUTO STAT 08/04/2024 7:4 5 AM MINER HELPER SALICYLATE LEVEL STAT 08/04/2024 7:45 AM MINER HELPER ACETAMINOPHEN LEVEL STAT 08/04/2024 7 :45 AM MINER HELPER ETHANOL STAT 08/04/2024 7:45 AM MINER HELPER COMPREHENSIVE METABOLIC PANEL STAT 08/04/2024 7:45 AM MINER HELPER CBC WITH AUTO DIFFERENTIAL STAT 08/04/2024 7:45 AM MINER HELPER COVID-19 CORONAVIRUS RNA STAT 08/04/2024 7:45 AM MINER HELPER ECG 12-LEAD Routine 08/04/2024 6:16 AM MINER HELPER XR FOOT LEFT 3 OR MORE VIEWS ED 08/03/2024 11:17 PM MINER HELPER URINALYSIS, MICROSCOPIC ONLY STAT 07/08/2024 5:14 PM MINER HELPER URINALYSIS AND REFLEX TO MICROSCOPIC STAT 07/08/2024 5:14 PM MINER HELPER DRUGS OF ABUSE SCREEN, URINE WITHOUT CONFIRMATION STAT 07/08/2024 5:14 PM MINER HELPER EGFR STAT 07/08/2024 5:13 PM MINER HELPER T4, FREE STAT 07/08/2024 5:13 PM MINER HELPER DIFFERENTIAL AUTO STAT 07/08/2024 5:1 3 PM MINER HELPER ETHANOL STAT 07/08/2024 5:13 PM MINER HELPER THYROID FUNCTION CASCADE STAT 07/08/2024 5:13 PM MINER HELPER COMPREHENSIVE METABOLIC PANEL STAT 07/08/2024 5:13 PM MINER HELPER CBC WITH AUTO DIFFERENTIAL STAT 07/08/2024 5:13 PM MINER HELPER EGFR Routine 07/07/2024 8:41 PM MINER HELPER DIFFERENTIAL AUTO Routine 07/07/2024 8:4 1 PM MINER HELPER MAGNESIUM Routine 07/07/2024 8:41 PM MINER HELPER CBC WITH AUTO DIFFERENTIAL Routine 07/07/2024 8:41 PM MINER HELPER BASIC METABOLIC PANEL Routine 07/07/2024 8:41 PM MINER HELPER INFECTION PREVENTION DELROY AURIS PCR, SURVEILLANCE Routine 07/07/2024 4:44 AM MINER HELPER EGFR Routine 07/07/2024 1:14 AM MINER HELPER DIFFERENTIAL AUTO Routine 07/07/2024 1:1 4 AM MINER HELPER MAGNESIUM Routine 07/07/2024 1:14 AM MINER HELPER CBC WITH AUTO DIFFERENTIAL Routine 07/07/2024 1:14 AM MINER HELPER BASIC METABOLIC PANEL Routine 07/07/2024 1:14 AM MINER HELPER VANCOMYCIN LEVEL TROUGH Timed 07/07/2024 1:14 AM MINER HELPER MRI ORBIT W WO CONTRAST IP Routine 07/06/2024 1:31 PM MINER HELPER EGFR Routine 07/06/2024 6:54 AM MINER HELPER DIFFERENTIAL AUTO Routine 07/06/2024 6:5 4 AM MINER HELPER MAGNESIUM Routine 07/06/2024 6:54 AM MINER HELPER CBC WITH AUTO DIFFERENTIAL Routine 07/06/2024 6:54 AM MINER HELPER BASIC METABOLIC PANEL Routine 07/06/2024 6:54 AM MINER HELPER BLOOD CULTURE Timed 07/05/2024 4:10 PM MINER HELPER BLOOD CULTURE Timed 07/05/2024 4:10 PM MINER HELPER ETHANOL Timed 07/05/2024 3:55 PM MINER HELPER AMPHETAMINE, URINE, CONFIRMATION Routine 07/05/2024 12:29 PM MINER HELPER DRUGS OF ABUSE SCREEN, URINE WITH REFLEX CONFIRMATION Routine 07/05/2024 12:29 PM MINER HELPER POCT GLUCOSE DEVICE Routine 07/05/2024 12:19 PM MINER HELPER HIV-1 GENOTYPIC DRUG RESISTANCE Routine 07/05/2024 6:55 AM MINER HELPER N. GONORRHOEAE/C. TRACHOMATIS AMPLIFICATION Routine 07/05/2024 6:39 AM MINER HELPER TRICHOMONAS VAGINALIS PCR Routine 07/05/2024 6:39 AM MINER HELPER HEPATITIS PANEL, ACUTE Routine 6:10 AM MINER HELPER HIV-1 RNA, QUANTITATIVE, PCR Routine 07/05/2024 6:10 AM MINER HELPER POCT GLUCOSE DEVICE Routine 07/05/2024 5 :55 AM MINER HELPER EGFR Routine 07/04/2024 9:39 PM MINER HELPER DIFFERENTIAL AUTO Routine 07/04/2024 9:3 9 PM MINER HELPER MAGNESIUM Routine 07/04/2024 9:39 PM MINER HELPER CBC WITH AUTO DIFFERENTIAL Routine 07/04/2024 9:39 PM MINER HELPER BASIC METABOLIC PANEL Routine 07/04/2024 9:39 PM MINER HELPER US KIDNEY COMPLETE ED 07/04/2024 5: 13 PM MINER HELPER BLOOD CULTURE STAT 07/04/2024 4:57 PM MINER HELPER BLOOD CULTURE STAT 07/04/2024 4:57 PM MINER HELPER MRI BRAIN INCL ORBITS W WO CONTRAST ED 07/04/2024 2:[address] ABDOMEN PELVIS W CONTRAST ED 07/04/2024 12:25 PM MINER HELPER SEPSIS LACTATE WITH REFLEX STAT 07/04/2024 11:28 AM MINER HELPER BLOOD CULTURE STAT 07/04/2024 11:28 AM MINER HELPER BLOOD CULTURE STAT 07/04/2024 11:28 AM MINER HELPER POCUS RETROPERITONEAL (AAA OR RENAL) 07/04/2024 11:21 AM MINER HELPER EGFR STAT 07/04/2024 10:07 AM MINER HELPER URINALYSIS, MICROSCOPIC ONLY STAT 07/04/2024 10:07 AM MINER HELPER DIFFERENTIAL AUTO STAT 07/04/2024 10:07 AM MINER HELPER T-HELPER CELLS (CD4) COUNT STAT 07/04/2024 10:07 AM MINER HELPER LIPASE STAT 07/04/2024 10:07 AM MINER HELPER COMPREHENSIVE METABOLIC PANEL STAT 07/04/2024 10:07 AM MINER HELPER CBC WITH AUTO DIFFERENTIAL STAT 07/04/2024 10:07 AM MINER HELPER URINE CULTURE STAT 07/04/2024 10:07 AM MINER HELPER URINALYSIS AND REFLEX TO MICROSCOPIC AND CULTURE STAT 07/04/2024 10:07 AM MINER HELPER ECG 12-LEAD STAT 07/03/2024 8:45 AM MINER HELPER TROPONIN I HIGH-SENSITIVITY 2-HOUR Timed 07/03/2024 7:25 AM MINER HELPER RPR TITER STAT 07/03/2024 7:25 AM MINER HELPER RPR STAT 07/03/2024 7:25 AM MINER HELPER ED CRITICAL CARE Routine 07/03/2024 5:22 AM MINER HELPER CTA/CTP RAPID STROKE Critical/Life-T hreatening 07/03/2024 5:20 AM MINER HELPER POCT LACTATE - DEVICE Routine 07/03/2024 5:19 AM MINER HELPER POCT PROTHROMBIN TIME, WHOLE BLOOD Routine 07/03/2024 5:17 AM MINER HELPER POC BLOOD GAS AND CHEMISTRIES, ARTERIAL Routine 07/03/2024 5:14 AM MINER HELPER POCT GLUCOSE DEVICE Routine 07/03/2024 5 :13 AM MINER HELPER EGFR STAT 07/03/2024 5:09 AM MINER HELPER DIFFERENTIAL AUTO STAT 07/03/2024 5:0 9 AM MINER HELPER TROPONIN I HIGH-SENSITIVITY SERIES (BASELINE, 2HR, 4HR, 6HR) STAT 07/03/2024 5:09 AM MINER HELPER APTT STAT 07/03/2024 5:09 AM MINER HELPER COMPREHENSIVE METABOLIC PANEL STAT 07/03/2024 5:09 AM MINER HELPER CBC WITH AUTO DIFFERENTIAL STAT 07/03/2024 5:09 AM MINER HELPER ECG 12-LEAD STAT 06/26/2024 2:10 PM MINER HELPER INFLUENZA A/B, RSV, AND COVID-19 PCR Routine 06/26/2024 9:53 AM MINER HELPER EGFR STAT 06/26/2024 9:19 AM MINER HELPER DIFFERENTIAL AUTO STAT 06/26/2024 9:1 9 AM MINER HELPER TROPONIN I HIGH-SENSITIVITY SERIES (BASELINE, 2HR, 4HR, 6HR) STAT 06/26/2024 9:19 AM MINER HELPER CBC WITH AUTO DIFFERENTIAL STAT 06/26/2024 9:19 AM MINER HELPER COMPREHENSIVE METABOLIC PANEL STAT 06/26/2024 9:19 AM MINER HELPER XR CHEST PA LATERAL 2 VIEWS ED 06/26/2024 9:10 AM MINER HELPER CELL COUNT W REFLEX DIFFERENTIAL, CSF Routine 06/06/2024 11:53 AM MINER HELPER CSF PROTEIN Routine 06/06/2024 11:53 AM MINER HELPER GLUCOSE, CSF Routine 06/06/2024 11:53 AM MINER HELPER CRYPTOCOCCAL ANTIGEN, CSF Routine 06/06/2024 11:53 AM MINER HELPER VDRL, CSF Routine 06/06/2024 11:53 AM MINER HELPER MYCOLOGY (FUNGAL) CULTURE AND CRYPTOCOCCUS ANTIGEN, CSF Routine 06/06/2024 11:53 AM MINER HELPER ENTEROVIRUS PCR Routine 06/06/2024 11:53 AM MINER HELPER HERPES SIMPLEX VIRUS (HSV) PCR Routine 06/06/2024 11:53 AM MINER HELPER VARICELLA ZOSTER VIRUS (VZV) PCR Routine 06/06/2024 11:53 AM MINER HELPER AL DIAGNOSTIC LUMBAR SPINAL PUNCTURE Routine 06/06/2024 11:46 AM MINER HELPER HIV infection, unspecified symptom status (HCC) CT HEAD WO CONTRAST IP Routine 06/05/2024 5 :52 PM MINER HELPER LACTATE Timed 06/04/2024 8:39 PM MINER HELPER HEPATITIS C ANTIBODY Routine 06/04/2024 8:39 PM MINER HELPER ERYTHROCYTE SEDIMENTATION RATE Routine 06/04/2024 8:36 PM MINER HELPER CRP (ACUTE PHASE) Routine 06/04/2024 8:3 6 PM MINER HELPER EGFR Routine 06/04/2024 8:36 PM MINER HELPER DIFFERENTIAL AUTO Routine 06/04/2024 8:3 6 PM MINER HELPER COMPREHENSIVE METABOLIC PANEL Routine 06/04/2024 8:36 PM MINER HELPER CBC WITH AUTO DIFFERENTIAL Routine 06/04/2024 8:36 PM MINER HELPER RPR TITER Timed 06/04/2024 8:36 PM MINER HELPER BLOOD CULTURE Routine 06/04/2024 8:36 PM MINER HELPER RPR Timed 06/04/2024 8:36 PM MINER HELPER CRYPTOCOCCAL ANTIGEN, SERUM Routine 06/04/2024 8:36 PM MINER HELPER HEPATITIS B SURFACE ANTIGEN Routine 06/04/2024 8:36 PM MINER HELPER HEPATITIS B CORE ANTIBODY, TOTAL Routine 06/04/2024 8:36 PM MINER HELPER CMV, IGG AND IGM ANTIBODIES Routine 06/04/2024 8:36 PM MINER HELPER CYTOMEGALOVIRUS (CMV) DNA, QUANT GEN LAB Routine 06/04/2024 8:36 PM MINER HELPER EGFR Timed 06/04/2024 6:10 AM MINER HELPER DIFFERENTIAL AUTO Timed 06/04/2024 6:1 0 AM MINER HELPER LACTATE Timed 06/04/2024 6:10 AM MINER HELPER COMPREHENSIVE METABOLIC PANEL Timed 06/04/2024 6:10 AM MINER HELPER CBC WITH AUTO DIFFERENTIAL Timed 06/04/2024 6:10 AM MINER HELPER POCT GLUCOSE DEVICE Routine 06/03/2024 5 :26 AM MINER HELPER POCT KETONE, BLOOD Routine 06/02/2024 7: 46 PM MINER HELPER STOOL CULTURE Routine 06/02/2024 7:17 PM MINER HELPER LIPID PANEL STAT 06/02/2024 5:22 PM MINER HELPER EGFR STAT 06/02/2024 5:22 PM MINER HELPER OSMOLALITY, BLOOD STAT 06/02/2024 5:2 2 PM MINER HELPER LACTATE Routine 06/02/2024 5:22 PM MINER HELPER BASIC METABOLIC PANEL STAT 06/02/2024 5:22 PM MINER HELPER BLOOD GAS, VENOUS STAT 06/02/2024 3:4 4 PM MINER HELPER POCT GLUCOSE DEVICE Routine 06/02/2024 3 :25 PM MINER HELPER ECG 12-LEAD Routine 06/02/2024 3:03 PM MINER HELPER POCT GLUCOSE DEVICE Routine 06/02/2024 2 :26 PM MINER HELPER POCT GLUCOSE DEVICE Routine 06/02/2024 1 :50 PM MINER HELPER POCT GLUCOSE DEVICE Routine 06/02/2024 1 :13 PM MINER HELPER LACTATE Routine 06/02/2024 12:29 PM MINER HELPER BLOOD GAS, VENOUS Routine 06/02/2024 12:29 PM MINER HELPER TROPONIN I HIGH-SENSITIVITY 2-HOUR Timed 06/02/2024 11:13 AM MINER HELPER URINALYSIS, MICROSCOPIC ONLY STAT 06/02/2024 10:28 AM MINER HELPER DRUGS OF ABUSE SCREEN, URINE WITHOUT CONFIRMATION STAT 06/02/2024 10:28 AM MINER HELPER URINALYSIS AND REFLEX TO MICROSCOPIC AND CULTURE STAT 06/02/2024 10:28 AM MINER HELPER XR CHEST 1 VIEW ED 06/02/2024 10:22 AM MINER HELPER ECG 12-LEAD STAT 06/02/2024 9:37 AM MINER HELPER T-HELPER CELLS (CD4) COUNT STAT 06/02/2024 9:35 AM MINER HELPER CREATINE KINASE (CK), TOTAL STAT 06/02/2024 9:35 AM MINER HELPER MANUAL DIFFERENTIAL STAT 06/02/2024 9 :35 AM MINER HELPER EGFR STAT 06/02/2024 9:35 AM MINER HELPER SEPSIS LACTATE WITH REFLEX STAT 06/02/2024 9:35 AM MINER HELPER THYROID FUNCTION CASCADE STAT 06/02/2024 9:35 AM MINER HELPER TROPONIN I HIGH-SENSITIVITY SERIES (BASELINE, 2HR, 4HR, 6HR) STAT 06/02/2024 9:35 AM MINER HELPER SALICYLATE LEVEL STAT 06/02/2024 9:35 AM MINER HELPER APTT STAT 06/02/2024 9:35 AM MINER HELPER PROTIME-INR STAT 06/02/2024 9:35 AM MINER HELPER ETHANOL STAT 06/02/2024 9:35 AM MINER HELPER HEPATIC FUNCTION PANEL STAT 9:35 AM MINER HELPER ACETAMINOPHEN LEVEL STAT 06/02/2024 9 :35 AM MINER HELPER BLOOD GAS, VENOUS STAT 06/02/2024 9:3 5 AM MINER HELPER CBC WITH AUTO DIFFERENTIAL STAT 06/02/2024 9:35 AM MINER HELPER BASIC METABOLIC PANEL STAT 06/02/2024 9:35 AM MINER HELPER AL CRITICAL CARE ILL/INJURED PATIENT INIT 30-74 MIN Routine 06/02/2024 9:28 AM MINER HELPER POCT GLUCOSE DEVICE Routine 05/10/2024 10:12 AM CDT POCT GLUCOSE DEVICE Routine 05/10/2024 9 :24 AM CDT XR ANKLE LEFT 3 OR MORE VIEWS ED 05/10/2024 7:56 AM CDT T-HELPER CELLS (CD4) COUNT STAT 05/10/2024 7:13 AM CDT TRICHOMONAS VAGINALIS PCR STAT 05/10/2024 7:13 AM CDT N. GONORRHOEAE/C. TRACHOMATIS AMPLIFICATION STAT 05/10/2024 7:13 AM CDT CRITICAL RESULT CALLBACK CHEMISTRY STAT 05/10/2024 7:10 AM CDT EGFR STAT 05/10/2024 7:10 AM CDT URINALYSIS, MICROSCOPIC ONLY STAT 05/10/2024 7:10 AM CDT DIFFERENTIAL AUTO STAT 05/10/2024 7:1 0 AM CDT URINALYSIS AND REFLEX TO MICROSCOPIC STAT 05/10/2024 7:10 AM CDT DRUGS OF ABUSE SCREEN, URINE WITHOUT CONFIRMATION STAT 05/10/2024 7:10 AM CDT ETHANOL STAT 05/10/2024 7:10 AM CDT THYROID FUNCTION CASCADE STAT 05/10/2024 7:10 AM CDT COMPREHENSIVE METABOLIC PANEL STAT 05/10/2024 7:10 AM CDT CBC WITH AUTO DIFFERENTIAL STAT 05/10/2024 7:10 AM CDT HEMOGLOBIN A1C STAT 08/01/2017 9:13 PM MINER HELPER from Last 3 Months or Most Recently Relevant to Health Maintenance Results * Urinalysis reflex to microscopic and culture Urine (08/04/2024 9:17 AM MINER HELPER) Color, ur Yellow Yellow Clarity, ur Clear Clear JOE Specific gravity, ur 1.026 1.003 - 1.030 [facility]E pH, urine 6.5 JOE Comment: Interpretive Data ? Urine pH is affected by diet, medications, systemic acid-base disturbances, and renal tubular function. ??pH may affect urinary stone formation. ??For example, urine pH below 6.0 may help reduce the tendency for calcium phosphate stones and pH greater than 6.0 may reduce the tendency for uric acid stone formation. Source: [facility] [employer] Current Interpretive Data was last revised on 2017 Protein, ur ql Negative Negative [facility] Glucose, ur ql Negative Negative [facility] Ketones, ur Negative Negative [facility] Bilirubin, ur Negative Negative [facility] Blood, ur Negative Negative [facility] Urobilinogen, ur <2.0 <2.0 mg/dL [facility] Nitrite, ur Negative Negative [facility] Leukocyte esterase, ur Negative Negative [facility] UA reflex comment Reflex conditions for microscopic UA and culture not met. [facility] Urine 08/04/2024 9:17 AM MINER HELPER 08/04/2024 9:20 AM MINER HELPER Nicko Gunter DO LAB MICROBIOLOGY - GENERAL ORD ERABLES Final Result [facility] [address] [facility] [facility] [place] [address] * (ABNORMAL) Drugs of Abuse Screen, Urine without Confirmation (08/04/2024 9:17 AM MINER HELPER) Amphetamine, ur Screen Positive, presumptive (A) CutOff 500ng/mL Comment: Interpretive Data - Amphetamines: ??Samples containing greater than 500 ng/mL d-methamphetamine ??or other cross-reacting amphetamine compounds are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 2017. Monocyte pct 5.0 % [facility] Comment: Interpretive Data Percent cell count reference ranges are not reported, since discordance with absolute values may lead to misinterpretation of CBC data. Current Interpretive Data was last revised on 2017. Eosinophil pct 2.6 % [facility] Comment: Interpretive Data Percent cell count reference ranges are not reported, since discordance with absolute values may lead to misinterpretation of CBC data. Current Interpretive Data was last revised on 2017. Basophil pct 0.4 % [facility] Comment: Interpretive Data Percent cell count reference ranges are not reported, since discordance with absolute values may lead to misinterpretation of CBC data. Current Interpretive Data was last revised on 2017. Blood 07/08/2024 5:13 PM MINER HELPER 07/08/2024 5:20 PM MINER HELPER us Pardeep Montano MD LAB BLOOD ORDERABLES Fi nal Result [facility] [place] [address] * (ABNORMAL) Thyroid Function Driscoll (07/08/2024 5:13 PM MINER HELPER) TSH 4.49(H) 0.30 - 4.20 mcIUnit/mL Blood 07/08/2024 5:13 PM MINER HELPER 07/08/2024 5:20 PM MINER HELPER Pardeep Montano MD LAB BLOOD ORDERABLES Fi nal Result Performing Organization Address [facility] Co de Phone Number [facility] [place] [address] * (ABNORMAL) CBC with auto differential (07/08/2024 5:13 PM MINER HELPER) Pathologist [facility] WBC 4.6 3.8 - 9.9 K/cumm Hgb 12.7(L) 13.0 - 17.5 g/dL [facility] Hct 41.6 38.9 - 50.3 % [facility] Plt 663(H) 150 - 400 K/cumm [facility] MPV 9.0(L) 9.1 - 12.3 fL [facility] RBC 5.27 4.30 - 5.80 M/cumm [facility] MCV 78.9(L) 81.3 - 96.4 fL [facility] MCH 24.1(L) 27.1 - 33.3 pg [facility] MCHC 30.5(L) 32.3 - 35.7 g/dL [facility] RDW CV 17.4(H) 11.1 - 14.9 % [facility] RDW SD 50.0(H) 35.7 - 48.1 fL [facility] NRBC abs 0.00 0.00 - 0.01 K/cumm [facility] Blood (Blood, Venous) 07/08/2024 5:13 PM MINER HELPER 07/08/2024 5:20 PM MINER HELPER us Pardeep Montano MD LAB BLOOD ORDERABLES Fi nal Result Performing Organization Address [facility]/ZIP Co de Phone Number [facility] [place] [address] * (ABNORMAL) T4, free (07/08/2024 5:13 PM MINER HELPER) Pathologist [facility] Free T4 0.87(L) 0.90 - 1.70 ng/dL Blood 07/08/2024 5:13 PM MINER HELPER 07/08/2024 5:20 PM MINER HELPER Narrative [facility] - 07/08/2024 6:31 PM MINER HELPER This test was reflexed from a TSH result. us Pardeep Montano MD LAB BLOOD ORDERABLES Ed ited Result - Final Performing Organization Address [facility] Co de Phone Number [facility] [place] [address] * Ethanol (07/08/2024 5:13 PM MINER HELPER) [facility] Ethanol <10 <=10 mg/dL Comment: Interpretive Data Legal limit of intoxication > or = 80 mg/dL Levels > or = 400 mg/dL are potentially TOXIC. Current interpretive data was last revised on 2018. Blood 07/08/2024 5:13 PM MINER HELPER 07/08/2024 5:20 PM MINER HELPER us Pardeep Montano MD LAB BLOOD ORDERABLES Fi nal Result Performing Organization Address [facility] Co de Phone Number [facility] [place] [address] * (ABNORMAL) Comprehensive metabolic panel (07/08/2024 5:13 PM MINER HELPER) [facility] Sodium 142 135 - 145 mmol/L Potassium, pl 4.5 3.3 - 4.9 mmol/L [facility] Chloride 106 97 - 110 mmol/L [facility] CO2 29 22 - 32 mmol/L [facility] Anion gap 7 2 - 15 mmol/L [facility] BUN 15 6 - 25 mg/dL [facility] Creatinine 1.06 0.80 - 1.30 mg/dL [facility] Glucose 90 70 - 199 mg/dL [facility] Comment: Interpretive Data Fasting glucose >/= 126 mg/dl is diagnostic for diabetes. ?? Fasting is defined as no caloric intake for at least 8 hours. Fasting glucose between 100 mg/dl to 125 mg/dl is diagnostic of prediabetes. In a patient with classic symptoms of hyperglycemia or hyperglycemic crisis, a random glucose >/= 200 mg/dl is diagnostic for diabetes. In the absence of unequivocal hyperglycemia, results should be confirmed by repeat testing. The classification and Diagnosis of Diabetes Diabetes Care 202; 46: S19-S40. Current interpretive data was last revised 2022. Calcium 9.3 8.5 - 10.3 mg/dL [facility] Bilirubin, total <0.2 0.1 - 1.2 mg/dL [facility] Protein, pl 8.2 6.5 - 8.5 g/dL [facility] Albumin 3.5 3.5 - 5.0 g/dL [facility] Alk phos 89 40 - 130 Units/L [facility] ALT 82(H) 7 - 55 Units/L [facility] AST 73(H) 10 - 50 Units/L [facility] Blood 07/08/2024 5:13 PM MINER HELPER 07/08/2024 5:20 PM MINER HELPER us Pardeep Montano MD LAB BLOOD ORDERABLES Fi nal Result [facility] [place] [address] * eGFR (07/07/2024 8:41 PM MINER HELPER) eGFR >90 >=60 mL/min/1. 73 m2 Comment: Interpretive Data Reference Interval Normal ?>/= 90 mL/min/1.73m2 Mildly decreased* ? 60 - 89 mL/min/1.73m2 Mildly to moderately decreased ?45 - 59 mL/min/1.73m2 Moderately to severely decreased ??30 - 44 mL/min/1.73m2 Severely decreased ?15 - 29 mL/min/1.73m2 Kidney Failure ?< 15 ??mL/min/1.73m2 *Relative to young adult level Estimated glomerular filtration rate is determined by the 2020 CKD-EPI equation recommended by the National Kidney Foundation (A Unifying Approach to GFR Estimation: Recommendations of the NKF-ASK Task Force on Reassessing the Inclusion of Race in Diagnosing Kidney Disease, JASN 2020). The CKD-EPI equation should not be used for patients with unstable renal function and has not been validated in children and those over 70. Current interpretive data was last reviewed 2021. Blood 07/07/2024 8:41 PM MINER HELPER 07/07/2024 8:53 PM MINER HELPER us Federico Kelley MD LAB BLOOD ORDERABLES Antonina jhaveri Result [facility] [place] [address] * Differential, auto (07/07/2024 8:41 PM MINER HELPER) Neutrophil abs 2.6 1.5 - 6.5 K/cumm Imm gran abs 0.0 0.0 - 0.1 K/cumm [facility] Lymphocyte abs 1.5 0.8 - 3.3 K/cumm [facility] Monocyte abs 0.4 0.2 - 0.8 K/cumm [facility] Eosinophil abs 0.3 0.0 - 0.5 K/cumm [facility] Basophil abs 0.0 0.0 - 0.1 K/cumm [facility] Neutrophil pct 54.3 % [facility] Comment: Interpretive Data Percent cell count reference ranges are not reported, since discordance with absolute values may lead to misinterpretation of CBC data. Current Interpretive Data was last revised on 2017. Imm gran pct 0.8 % [facility] Comment: Interpretive Data Percent cell count reference ranges are not reported, since discordance with absolute values may lead to misinterpretation of CBC data. Current Interpretive Data was last revised on 2017. Lymphocyte pct 31.3 % [facility] Comment: Interpretive Data Percent cell count reference ranges are not reported, since discordance with absolute values may lead to misinterpretation of CBC data. Current Interpretive Data was last revised on 2017. Monocyte pct 7.2 % [facility] Comment: Interpretive Data Percent cell count reference ranges are not reported, since discordance with absolute values may lead to misinterpretation of CBC data. Current Interpretive Data was last revised on 2017. Eosinophil pct 6.0 % [facility] Comment: Interpretive Data Percent cell count reference ranges are not reported, since discordance with absolute values may lead to misinterpretation of CBC data. Current Interpretive Data was last revised on 2017. Basophil pct 0.4 % [facility] Comment: Interpretive Data Percent cell count reference ranges are not reported, since discordance with absolute values may lead to misinterpretation of CBC data. Current Interpretive Data was last revised on 2017. Blood 07/07/2024 8:41 PM MINER HELPER 07/07/2024 8:53 PM MINER HELPER us Federico Kelley MD LAB BLOOD ORDERABLES Antonina jhaveri Result [facility] [place] [address] * (ABNORMAL) CBC with auto differential (07/07/2024 8:41 PM MINER HELPER) WBC 4.9 3.8 - 9.9 K/cumm Hgb 10.4(L) 13.0 - 17.5 g/dL [facility] Hct 33.1(L) 38.9 - 50.3 % [facility] Plt 559(H) 150 - 400 K/cumm [facility] MPV 8.8(L) 9.1 - 12.3 fL [facility] RBC 4.32 4.30 - 5.80 M/cumm [facility] MCV 76.6(L) 81.3 - 96.4 fL [facility] MCH 24.1(L) 27.1 - 33.3 pg [facility] MCHC 31.4(L) 32.3 - 35.7 g/dL [facility] RDW CV 17.2(H) 11.1 - 14.9 % [facility] RDW SD 47.8 35.7 - 48.1 fL [facility] NRBC abs 0.00 0.00 - 0.01 K/cumm [facility] Blood 07/07/2024 8:41 PM MINER HELPER 07/07/2024 8:53 PM MINER HELPER Federico Kelley MD LAB BLOOD ORDERABLES Antonina l Result Performing Organization Address [facility]/ZIP Co de Phone Number [facility] [place] [address] * Magnesium (07/07/2024 8:41 PM MINER HELPER) [facility] Magnesium 1.8 1.4 - 2.5 mg/dL Blood 07/07/2024 8:41 PM MINER HELPER 07/07/2024 8:53 PM MINER HELPER us Federico Kelley MD LAB BLOOD ORDERABLES Antonina l Result Performing Organization Address [facility] Co de Phone Number [facility] [place] [address] * Basic metabolic panel (07/07/2024 8:41 PM MINER HELPER) Pathologist [facility] Sodium 141 135 - 145 mmol/L Potassium, pl 4.5 3.3 - 4.9 mmol/L [facility] Chloride 106 97 - 110 mmol/L [facility] CO2 27 22 - 32 mmol/L [facility] Anion gap 8 2 - 15 mmol/L [facility] BUN 11 6 - 25 mg/dL [facility] Creatinine 1.00 0.80 - 1.30 mg/dL [facility] Glucose 110 70 - 199 mg/dL [facility] Comment: Interpretive Data Fasting glucose >/= 126 mg/dl is diagnostic for diabetes. ?? Fasting is defined as no caloric intake for at least 8 hours. Fasting glucose between 100 mg/dl to 125 mg/dl is diagnostic of prediabetes. In a patient with classic symptoms of hyperglycemia or hyperglycemic crisis, a random glucose >/= 200 mg/dl is diagnostic for diabetes. In the absence of unequivocal hyperglycemia, results should be confirmed by repeat testing. The classification and Diagnosis of Diabetes Diabetes Care 2021; 46: S19-S40. Current interpretive data was last revised 2022. Calcium 8.7 8.5 - 10.3 mg/dL [facility] Blood 07/07/2024 8:41 PM MINER HELPER 07/07/2024 8:53 PM MINER HELPER Federico Kelley MD LAB BLOOD ORDERABLES Antonina l Result Performing Organization Address [facility] Co de Phone Number [facility] [place] [address] * Infection Prevention Delroy auris PCR, surveillance Axilla/Groin (07/07/2024 4:44 AM MINER HELPER) [facility] Delroy auris DNA Not Detected Not Detected [facility] Comment: Interpretive Data Testing performed by [facility] using the [employer] Liaison MDX Delroy auris assay. ??This assay detects DNA from Delroy auris using Real-Time PCR. ??This assay is laboratory developed and is not cleared by the [place] Food and Drug Administration. ??The performance characteristics have been verified by the [facility]. Interpretive data was last reviewed on 11/14/2023 Axilla/Groin 07/07/2024 4:44 AM MINER HELPER 07/07/2024 5:05 AM MINER HELPER Sancho Hart MD LAB MICROBIOLOGY - GENERAL ORDER ALOK Final Result Performing Organization Address [facility] Co de Phone Number [facility] [place] [address] [facility] * eGFR (07/07/2024 1:14 AM MINER HELPER) [facility] eGFR >90 >=60 mL/min/1. 73 m2 Comment: Interpretive Data Reference Interval Normal ?>/= 90 mL/min/1.73m2 Mildly decreased* ? 60 - 89 mL/min/1.73m2 Mildly to moderately decreased ?45 - 59 mL/min/1.73m2 Moderately to severely decreased ??30 - 44 mL/min/1.73m2 Severely decreased ?15 - 29 mL/min/1.73m2 Kidney Failure ?< 15 ??mL/min/1.73m2 *Relative to young adult level Estimated glomerular filtration rate is determined by the 2020 CKD-EPI equation recommended by the National Kidney Foundation (A Unifying Approach to GFR Estimation: Recommendations of the NKF-ASK Task Force on Reassessing the Inclusion of Race in Diagnosing Kidney Disease, JASN 2020). The CKD-EPI equation should not be used for patients with unstable renal function and has not been validated in children and those over 70. Current interpretive data was last reviewed 2021. Blood 07/07/2024 1:14 AM MINER HELPER 07/07/2024 1:22 AM MINER HELPER Federico Kelley MD LAB BLOOD ORDERABLES Antonina jhaveri Result [facility] [place] [address] * Differential, auto (07/07/2024 1:14 AM MINER HELPER) [facility] Neutrophil abs 2.4 1.5 - 6.5 K/cumm Imm gran abs 0.0 0.0 - 0.1 K/cumm [facility] Lymphocyte abs 1.4 0.8 - 3.3 K/cumm [facility] Monocyte abs 0.4 0.2 - 0.8 K/cumm [facility] Eosinophil abs 0.3 0.0 - 0.5 K/cumm [facility] Basophil abs 0.0 0.0 - 0.1 K/cumm [facility] Neutrophil pct 51.8 % [facility] Comment: Interpretive Data Percent cell count reference ranges are not reported, since discordance with absolute values may lead to misinterpretation of CBC data. Current Interpretive Data was last revised on 2017. Imm gran pct 0.4 % [facility] Comment: Interpretive Data Percent cell count reference ranges are not reported, since discordance with absolute values may lead to misinterpretation of CBC data. Current Interpretive Data was last revised on 2017. Lymphocyte pct 31.6 % [facility] Comment: Interpretive Data Percent cell count reference ranges are not reported, since discordance with absolute values may lead to misinterpretation of CBC data. Current Interpretive Data was last revised on 2017. Monocyte pct 8.3 % [facility] Comment: Interpretive Data Percent cell count reference ranges are not reported, since discordance with absolute values may lead to misinterpretation of CBC data. Current Interpretive Data was last revised on 2017. Eosinophil pct 7.2 % [facility] Comment: Interpretive Data Percent cell count reference ranges are not reported, since discordance with absolute values may lead to misinterpretation of CBC data. Current Interpretive Data was last revised on 2017. Basophil pct 0.7 % [facility] Comment: Interpretive Data Percent cell count reference ranges are not reported, since discordance with absolute values may lead to misinterpretation of CBC data. Current Interpretive Data was last revised on 2017. Blood 07/07/2024 1:14 AM MINER HELPER 07/07/2024 1:22 AM MINER HELPER us Federico Kelley MD LAB BLOOD ORDERABLES Antonina jhaveri Result [facility] [place] [address] * (ABNORMAL) CBC with auto differential (07/07/2024 1:14 AM MINER HELPER) WBC 4.6 3.8 - 9.9 K/cumm Hgb 10.3(L) 13.0 - 17.5 g/dL [facility] Hct 32.4(L) 38.9 - 50.3 % [facility] Plt 462(H) 150 - 400 K/cumm [facility] MPV 9.2 9.1 - 12.3 fL [facility] RBC 4.21(L) 4.30 - 5.80 M/cumm [facility] MCV 77.0(L) 81.3 - 96.4 fL [facility] MCH 24.5(L) 27.1 - 33.3 pg [facility] MCHC 31.8(L) 32.3 - 35.7 g/dL [facility] RDW CV 17.3(H) 11.1 - 14.9 % [facility] RDW SD 48.2(H) 35.7 - 48.1 fL [facility] NRBC abs 0.00 0.00 - 0.01 K/cumm [facility] Blood 07/07/2024 1:14 AM MINER HELPER 07/07/2024 1:22 AM MINER HELPER Federico Kelley MD LAB BLOOD ORDERABLES Antonina l Result Performing Organization Address [facility] de Phone Number [facility] [place] [address] * Magnesium (07/07/2024 1:14 AM MINER HELPER) [facility] Magnesium 1.9 1.4 - 2.5 mg/dL Blood 07/07/2024 1:14 AM MINER HELPER 07/07/2024 1:22 AM MINER HELPER us Federico Kelley MD LAB BLOOD ORDERABLES Antonina l Result Performing Organization Address [facility] Co de Phone Number [facility] [place] [address] * (ABNORMAL) Vancomycin level trough Draw trough 30 minutes prior to 4th dose. (07/07/2024 1:14 AM MINER HELPER) Vancomycin trough 5.0(L) 10.0 - 20.0 mcg/mL Blood 07/07/2024 1:14 AM MINER HELPER 07/07/2024 1:22 AM MINER HELPER Narrative [facility] - 07/07/2024 2:03 AM MINER HELPER Draw trough 30 minutes prior to 4th dose. us Reji Melara MD LAB BLOOD ORDERABLES Final Result [facility] [place] [address] * Basic metabolic panel (07/07/2024 1:14 AM MINER HELPER) [facility] Sodium 140 135 - 145 mmol/L Potassium, pl 4.2 3.3 - 4.9 mmol/L [facility] Chloride 108 97 - 110 mmol/L [facility] CO2 25 22 - 32 mmol/L [facility] Anion gap 7 2 - 15 mmol/L [facility] BUN 14 6 - 25 mg/dL [facility] Creatinine 0.99 0.80 - 1.30 mg/dL [facility] Glucose 128 70 - 199 mg/dL [facility] Comment: Interpretive Data Fasting glucose >/= 126 mg/dl is diagnostic for diabetes. ?? Fasting is defined as no caloric intake for at least 8 hours. Fasting glucose between 100 mg/dl to 125 mg/dl is diagnostic of prediabetes. In a patient with classic symptoms of hyperglycemia or hyperglycemic crisis, a random glucose >/= 200 mg/dl is diagnostic for diabetes. In the absence of unequivocal hyperglycemia, results should be confirmed by repeat testing. The classification and Diagnosis of Diabetes Diabetes Care 202; 46: S19-S40. Current interpretive data was last revised 2022. Calcium 8.5 8.5 - 10.3 mg/dL [facility] Blood 07/07/2024 1:14 AM MINER HELPER 07/07/2024 1:22 AM MINER HELPER us Federico Kelley MD LAB BLOOD ORDERABLES Antonina jhaveri Result [facility] [place] [address] * MRI Orbit W WO Contrast (07/06/2024 1:31 PM MINER HELPER) Anatomical Region Laterality Modality Head and Neck N/A Magnetic Resonan ce 07/06/2024 2:00 PM MINER HELPER Impressions 07/06/2024 2:50 PM MINER HELPER 1. ??Questionable increased T2 signal and mild enhancement in the intracanalicular and orbital segments of the left optic nerve. Findings could represent artifact or early optic neuropathy. 2. 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 ?? 3. ??No acute infarct. Dictated by: Dee Carlisle D.O. The radiology attending physician has personally reviewed this study, and had reviewed and/or edited this written report and agrees with it. Electronically signed by: [place] Condon MD Narrative 07/06/2024 2:50 PM MINER HELPER EXAMINATION: Magnetic resonance imaging (MRI) of the orbits without and with contrast HISTORY: 28-year-old with history that includes HIV and neurosyphilis. ??Patient with difficulty with coordination, along with right leg weakness and numbness. 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 TECHNIQUE: Multiplanar multi-weighted MRI of the orbits was performed without and with intravenous contrast using the standard protocol. This included multiplanar high resolution imaging of the orbits and optic nerves. Contrast information: 12 mL Gadoterate Meglumine COMPARISON: MR brain and orbits 07/04/2024 FINDINGS: Both globes are normal in shape and outline without proptosis. The extraocular muscles are normal in size. No intra- or extraconal masses are present. The intraconal fat is normal. The orbital jaimes are intact. The lacrimal glands are normal in appearance. Meckel's cave appears normal on each side. The carotid artery flow voids are normal. Redemonstrated increased T2 signal and enhancement in the intracanalicular and orbital segments of the left optic nerve. The suprasellar cistern is normal. Result thickening of the bilateral maxillary sinuses more pronounced on the right. 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 Procedure Note [place] Condon MD PhD - 07/06/2024 EXAMINATION: Magnetic resonance imaging (MRI) of the orbits without and with contrast HISTORY: 28-year-old with history that includes HIV and neurosyphilis. Patient with difficulty with coordination, along with right leg weakness and numbness. 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 TECHNIQUE: Multiplanar multi-weighted MRI of the orbits was performed without and with intravenous contrast using the standard protocol. This included multiplanar high resolution imaging of the orbits and optic nerves. Contrast information: 12 mL Gadoterate Meglumine COMPARISON: MR brain and orbits 07/04/2024 FINDINGS: Both globes are normal in shape and outline without proptosis. The extraocular muscles are normal in size. No intra- or extraconal masses are present. The intraconal fat is normal. The orbital jaimes are intact. The lacrimal glands are normal in appearance. Meckel's cave appears normal on each side. The carotid artery flow voids are normal. Redemonstrated increased T2 signal and enhancement in the intracanalicular and orbital segments of the left optic nerve. The suprasellar cistern is normal. Result thickening of the bilateral maxillary sinuses more pronounced on the right. 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 IMPRESSION: 1. Questionable increased T2 signal and mild enhancement in the intracanalicular and orbital segments of the left optic nerve. Findings could represent artifact or early optic neuropathy. 2. Partially visualized T2 FLAIR hyperintensities and volume loss out of proportion to patient's age likely represent the sequela of premature small vessel disease or HIV encephalopathy. 3. No acute infarct. Dictated by: Dee Carlisle D.O. The radiology attending physician has personally reviewed this study, and had reviewed and/or edited this written report and agrees with it. Electronically signed by: [place] Condon MD us Reji Melara MD IMG MRI PROCEDURES Final Re sult * eGFR (07/06/2024 6:54 AM MINER HELPER) Pathologist [facility] eGFR >90 >=60 mL/min/1. 73 m2 Comment: Interpretive Data Reference Interval Normal ?>/= 90 mL/min/1.73m2 Mildly decreased* ? 60 - 89 mL/min/1.73m2 Mildly to moderately decreased ?45 - 59 mL/min/1.73m2 Moderately to severely decreased ??30 - 44 mL/min/1.73m2 Severely decreased ?15 - 29 mL/min/1.73m2 Kidney Failure ?< 15 ??mL/min/1.73m2 *Relative to young adult level Estimated glomerular filtration rate is determined by the 2020 CKD-EPI equation recommended by the National Kid[employer] (A Unifying Approach to GFR Estimation: Recommendations of the NKF-ASK Task Force on Reassessing the Inclusion of Race in Diagnosing Kidney Disease, JASN 2020). The CKD-EPI equation should not be used for patients with unstable renal function and has not been validated in children and those over 70. Current interpretive data was last reviewed 2021. Blood 07/06/2024 6:54 AM MINER HELPER 07/06/2024 7:39 AM MINER HELPER us Federico Kelley MD LAB BLOOD ORDERABLES Antonina l Result [facility] [place] [address] * Differential, auto (07/06/2024 6:54 AM MINER HELPER) Pathologist [facility] Neutrophil abs 2.8 1.5 - 6.5 K/cumm Imm gran abs 0.0 0.0 - 0.1 K/cumm [facility] Lymphocyte abs 1.1 0.8 - 3.3 K/cumm [facility] Monocyte abs 0.4 0.2 - 0.8 K/cumm [facility] Eosinophil abs 0.2 0.0 - 0.5 K/cumm [facility] Basophil abs 0.0 0.0 - 0.1 K/cumm [facility] Neutrophil pct 61.9 % [facility] Comment: Interpretive Data Percent cell count reference ranges are not reported, since discordance with absolute values may lead to misinterpretation of CBC data. Current Interpretive Data was last revised on 2017. Imm gran pct 0.7 % [facility] Comment: Interpretive Data Percent cell count reference ranges are not reported, since discordance with absolute values may lead to misinterpretation of CBC data. Current Interpretive Data was last revised on 2017. Lymphocyte pct 23.6 % [facility] Comment: Interpretive Data Percent cell count reference ranges are not reported, since discordance with absolute values may lead to misinterpretation of CBC data. Current Interpretive Data was last revised on 2017. Monocyte pct 7.9 % [facility] Comment: Interpretive Data Percent cell count reference ranges are not reported, since discordance with absolute values may lead to misinterpretation of CBC data. Current Interpretive Data was last revised on 2017. Eosinophil pct 5.2 % [facility] Comment: Interpretive Data Percent cell count reference ranges are not reported, since discordance with absolute values may lead to misinterpretation of CBC data. Current Interpretive Data was last revised on 2017. Basophil pct 0.7 % [facility] Comment: Interpretive Data Percent cell count reference ranges are not reported, since discordance with absolute values may lead to misinterpretation of CBC data. Current Interpretive Data was last revised on 2017. Blood 07/06/2024 6:54 AM MINER HELPER 07/06/2024 7:13 AM MINER HELPER us Federico Kelley MD LAB BLOOD ORDERABLES Antonina jhaveri Result [facility] [place] [address] * (ABNORMAL) CBC with auto differential (07/06/2024 6:54 AM MINER HELPER) [facility] WBC 4.6 3.8 - 9.9 K/cumm Hgb 11.3(L) 13.0 - 17.5 g/dL [facility] Hct 36.1(L) 38.9 - 50.3 % [facility] Plt 368 150 - 400 K/cumm [facility] MPV 9.6 9.1 - 12.3 fL [facility] RBC 4.73 4.30 - 5.80 M/cumm [facility] MCV 76.3(L) 81.3 - 96.4 fL [facility] MCH 23.9(L) 27.1 - 33.3 pg [facility] MCHC 31.3(L) 32.3 - 35.7 g/dL [facility] RDW CV 17.2(H) 11.1 - 14.9 % [facility] RDW SD 47.4 35.7 - 48.1 fL [facility] NRBC abs 0.00 0.00 - 0.01 K/cumm [facility] Blood 07/06/2024 6:54 AM MINER HELPER 07/06/2024 7:13 AM MINER HELPER us Federico Kelley MD LAB BLOOD ORDERABLES Antonina l Result Performing Organization Address [facility] Co de Phone Number [facility] [place] [address] * Magnesium (07/06/2024 6:54 AM MINER HELPER) [facility] Magnesium 2.0 1.4 - 2.5 mg/dL Blood 07/06/2024 6:54 AM MINER HELPER 07/06/2024 7:12 AM MINER HELPER Federico Kelley MD LAB BLOOD ORDERABLES Antonina l Result [facility] [place] [address] * (ABNORMAL) Basic metabolic panel (07/06/2024 6:54 AM MINER HELPER) Sodium 139 135 - 145 mmol/L Potassium, pl 4.0 3.3 - 4.9 mmol/L [facility] Comment:Hemolyzed; Potassium value may be falsely elevated by as much as 0.3-0.5 mmol/L. Suggest redraw and reanalysis. Chloride 107 97 - 110 mmol/L [facility] CO2 24 22 - 32 mmol/L [facility] Anion gap 8 2 - 15 mmol/L [facility] BUN 10 6 - 25 mg/dL [facility] Creatinine 0.96 0.80 - 1.30 mg/dL [facility] Glucose 138 70 - 199 mg/dL [facility] Comment: Interpretive Data Fasting glucose >/= 126 mg/dl is diagnostic for diabetes. ?? Fasting is defined as no caloric intake for at least 8 hours. Fasting glucose between 100 mg/dl to 125 mg/dl is diagnostic of prediabetes. In a patient with classic symptoms of hyperglycemia or hyperglycemic crisis, a random glucose >/= 200 mg/dl is diagnostic for diabetes. In the absence of unequivocal hyperglycemia, results should be confirmed by repeat testing. The classification and Diagnosis of Diabetes Diabetes Care 202; 46: S19-S40. Current interpretive data was last revised 2022. Calcium 8.3(L) 8.5 - 10.3 mg/dL [facility] Blood 07/06/2024 6:54 AM MINER HELPER 07/06/2024 7:12 AM MINER HELPER us Federico Kelley MD LAB BLOOD ORDERABLES Antonina l Result [facility] Department [place] [address] * Blood culture Blood (07/05/2024 4:10 PM MINER HELPER) Report Final Report: No growth Blood 07/05/2024 4:10 PM MINER HELPER 07/05/2024 4:26 PM MINER HELPER Narrative [facility] - 07/10/2024 7:00 AM MINER HELPER From a different site than #1. Collection->Peripheral 1. ?Blood cultures are incubated for 4 days on a continuously monitored blood culture system. The first report of a negative culture is issued within 24 hours of receipt of the specimen in the laboratory. 2. ?Positive culture results are reported as soon as they are detected. 3. ?The most important factor for detection of microbes in the setting of bloodstream infection is the volume of blood submitted for culture. Failure to collect an optimal blood volume can result in false negative blood cultures. 4. ? For pediatric patients, the recommended blood volume to collect follows a weight based strategy. See the electronic test catalog for collection instructions. 5. ?For positive blood cultures, a rapid molecular test may be performed for organism identification using the neeru ePlex blood culture identification panel for gram positive (BCID-GP) and gram negative (BCID-GN) organisms. This nucleic acid amplification test detects microbial DNA in positive blood culture broth. This assay has been cleared by the [place] Food and Drug Administration and its performance characteristics have been verified by the [facility]. For questions about this culture, contact the Microbiology Laboratory at [phone]. Interpretive data was last revised on 24. Dorothy Martinez MD LAB MICROBIOLOGY - GENERAL O RDERABLES Final Result [facility] [place] [address] * Blood culture Blood (07/05/2024 4:10 PM MINER HELPER) Report Final Report: No growth Blood 07/05/2024 4:10 PM MINER HELPER 07/05/2024 4:26 PM MINER HELPER Narrative [facility] - 07/10/2024 7:00 AM MINER HELPER Collection->Peripheral 1. ?Blood cultures are incubated for 4 days on a continuously monitored blood culture system. The first report of a negative culture is issued within 24 hours of receipt of the specimen in the laboratory. 2. ?Positive culture results are reported as soon as they are detected. 3. ?The most important factor for detection of microbes in the setting of bloodstream infection is the volume of blood submitted for culture. Failure to collect an optimal blood volume can result in false negative blood cultures. 4. ? For pediatric patients, the recommended blood volume to collect follows a weight based strategy. See the electronic test catalog for collection instructions. 5. ?For positive blood cultures, a rapid molecular test may be performed for organism identification using the neeru ePlex blood culture identification panel for gram positive (BCID-GP) and gram negative (BCID-GN) organisms. This nucleic acid amplification test detects microbial DNA in positive blood culture broth. This assay has been cleared by the [place] Food and Drug Administration and its performance characteristics have been verified by the [facility]. For questions about this culture, contact the Microbiology Laboratory at [phone]. Interpretive data was last revised on 24. Dorothy Martinez MD LAB MICROBIOLOGY - GENERAL O RDERABLES Final Result Performing Organization Address [facility] Co de Phone Number [facility] [place] [address] * Ethanol (07/05/2024 3:55 PM MINER HELPER) Pathologist [facility] Ethanol <10 <=10 mg/dL Comment: Interpretive Data Legal limit of intoxication > or = 80 mg/dL Levels > or = 400 mg/dL are potentially TOXIC. Current interpretive data was last revised on 2018. Blood 07/05/2024 3:55 PM MINER HELPER 07/05/2024 4:47 PM MINER HELPER us Reji Melara MD LAB BLOOD ORDERABLES Final Result Performing Organization Address [facility] Co de Phone Number [facility] Department [place] [address] * (ABNORMAL) Drugs of Abuse Screen, Urine with Reflex Confirmation (07/05/2024 12:29 PM MINER HELPER) Pathologist [facility] Amphetamine, ur Screen Positive, presumptive (A) CutOff 500ng/mL Comment: Interpretive Data - Amphetamines: ??Samples containing greater than 500 ng/mL d-methamphetamine ??or other cross-reacting amphetamine compounds are reported as positive. ??Amphetamine immunoassays are subject to significant false positive rates due to cross-reactivity of non-amphetamine drugs. Confirmatory testing required for definitive results. Current Interpretive Data was last reviewed 2023. Barbiturates, ur Not Detected CutOff 200ng/mL [facility] Comment: Interpretive Data - Barbiturates: ??Samples containing greater than 200 ng/mL secobarbital or other cross-reacting barbiturate compounds are reported as positive. ??False positive and false negative results are possible. Confirmatory testing required for definitive results. Current Interpretive Data was last reviewed 2023. Benzodiazepines, ur Not Detected CutOff 100ng/mL [facility] Comment: Interpretive Data - Benzodiazepines: ??Samples containing greater than 100 ng/mL nordiazepam or other cross-reacting compounds are reported as positive. False positive and false negative results are possible. Confirmatory testing required for definitive results. Current Interpretive Data was last reviewed 2023. Cannabinoids, ur Not Detected CutOff 50 ng/mL [facility] Comment: Interpretive Data - Cannabinoids: ??Samples containing greater than 50 ng/mL delta-9 THC -COOH or other cross-reacting compounds are reported as positive. ??False positive and false negative results are possible. ??Confirmatory testing required for definitive results. Current Interpretive Data was last reviewed 2023. Cocaine, ur Not Detected CutOff 150ng/mL [facility] Comment: Interpretive Data - Cocaine: ??Samples containing greater than 150 ng/mL benzoylecgonine or other cross-reacting compounds are reported as positive. False positive and false negative results are possible. Confirmatory testing required for definitive results. Current Interpretive Data was last reviewed 2023. Fentanyl, Ur Not Detected CutOff 5 ng/mL [facility] Comment: Interpretive Data - Fentanyl: ?? Samples containing greater than 5 ng/mL norfentanyl, fentanyl, or other cross-reacting fentanyl compounds are reported as positive. False positive and false negative results are possible. Confirmatory testing required for definitive results. Current Interpretive Data was last reviewed 2023. Methadone, ur Not Detected CutOff 300ng/mL [facility] Comment: Interpretive Data - Methadone: ??Samples containing greater than 300 ng/mL d,l-methadone or other cross-reacting compounds are reported as positive. ??False positive and false negative results are possible. Confirmatory testing required for definitive results. Current Interpretive Data was last reviewed 2023. Opiates, ur Not Detected CutOff 300ng/mL [facility] Comment: Interpretive Data - Opiates: ??Samples containing greater than 300 ng/mL morphine or other cross-reacting compounds are reported as positive. ??False positive and false negative results are possible. Confirmatory testing required for definitive results. Current Interpretive Data was last reviewed 2023. Oxycodone, ur Not Detected CutOff 100ng/mL [facility] Comment: Interpretive Data - Oxycodone: ??Samples containing greater than 100 ng/mL oxycodone or other cross-reacting compounds are reported as ??positive. ??False positive and false negative results are possible. Confirmatory testing required for definitive results. Current Interpretive Data was last reviewed 2023. Phencyclidine, ur Not Detected CutOff 25 ng/mL [facility] Comment: Interpretive Data - Phencyclidine: ??Samples containing greater than 25 ng/mL phencyclidine or other cross-reacting compounds are reported as positive. ??False positive and false negative results are possible. Confirmatory testing required for definitive results. Current Interpretive Data was last reviewed 2023. Urine Creatinine 78 mg/dL [facility] Comment: Interpretive Data Urine Creatinine: < 10 mg/dL is extremely dilute = or > 10 but < 20 mg/dL is dilute = or > 20 mg/dL is normal Current Interpretive Data was last revised on 2017. Urine 07/05/2024 12:2 9 PM MINER HELPER 07/05/2024 3:37 PM MINER HELPER Narrative [facility] - 07/05/2024 4:05 PM MINER HELPER Drug of Abuse screening is performed by immunoassay for medical purposes only. ??This is not to be used for Pain Management purposes. ??If Detected, confirmation testing will be performed for Amphetamines, Cocaine, Fentanyl, Methadone, Opiates, Oxycodone or Phencyclidine. Cari Steven MD LAB URINE ORDERABLES Antonina l Result Performing Organization Address [facility] de Phone Number [facility] [place] [address] * (ABNORMAL) Amphetamine Confirmation, Urine (07/05/2024 12:29 PM MINER HELPER) Pathologist [facility] Amphetamine Conf, Ur Confirmed Positive(A) CutOff 150ng/mL Methamphetamine Conf, Ur Confirmed Positive(A) CutOff 150ng/mL [facility] MDA Conf, Ur Does Not Confirm CutOff 150ng/mL [facility] MDMA Conf, Ur Does Not Confirm CutOff 50 ng/mL [facility] MDEA Conf, Ur Does Not Confirm CutOff 150ng/mL [facility] MBDB Conf, Ur Does Not Confirm CutOff 150ng/mL [facility] Comment: Interpretive Data This test detects the presence or absence of drug compounds using LC Tandem mass spectrometry. While this test is highly specific, false positive and false negative results may occur in very rare circumstances. Contact the laboratory for consultation, if needed. Performance characteristics were determined by the [facility] in a manner consistent with CLIA requirement and has not been cleared or approved by the U.S. Food and Drug Administration. Current interpretive data was last revised on 2020. Urine 07/05/2024 12:2 9 PM MINER HELPER 07/05/2024 3:37 PM MINER HELPER Cari Steven MD LAB URINE ORDERABLES Antonina l Result Performing Organization Address [facility] Co de Phone Number [facility] [place] [address] * POCT glucose (07/05/2024 12:19 PM MINER HELPER) Pathologist [facility] Glucose, POC 114 70 - 199 mg/dL Blood 07/05/2024 12:1 9 PM MINER HELPER 07/05/2024 12:19 PM MINER HELPER Reji Melara MD LAB POCT ORDERABLES - DEVIC E Final Result [facility] [place] [address] * HIV-1 Genotypic Drug Resistance Blood (07/05/2024 6:55 AM MINER HELPER) [facility] HIV-1, genotypic drug resistance [facility] Comment: HIV-1 Genotypic Drug Resistance, P was cancelled on 07/09/2024 at 11:35; Duplicate test request. Test Performed by: [facility] [employer] [address] [place] [id number] Turn Supervisor: Asim Shukla Ph.D.; CLIA# [id number] HIV-1 group M subtype Not Reported [facility] Nucleos(t)onofre RT mutations Not Reported [facility] Reverse Transcriptase failed codons Not Reported [facility] Abacavir Not Reported [facility] [facility] Didanosine Not Reported [facility] Emtricitabine Not Reported [facility] Lamivudine Not Reported [facility] Stavudine Not Reported [facility] Tenofovir Not Reported [facility] Zidovudine Not Reported [facility] Nonnucleoside RT mutations Not Reported [facility] Doravirine Not Reported [facility] Efavirenz Not Reported [facility] Etravirine Not Reported [facility] Nevirapine Not Reported [facility] Rilpivirine Not Reported [facility] Protease Mutations Not Reported [facility] Protease failed codons Not Reported [facility] Atazanavir w/ Ritonavir Not Reported [facility] Darunavir w/ Ritonavir Not Reported [facility] Fosamprenavir w/ Ritonavir Not Reported [facility] Indinavir w/ Ritonavir Not Reported [facility] Lopinavir w/ Ritonavir Not Reported [facility] Nelfinavir Not Reported [facility] Saquinavir w/ Ritonavir Not Reported [facility] Tipranavir w/ Ritonavir Not Reported [facility] Integrase Mutations Not Reported [facility] Integrase failed codons Not Reported [facility] Bictegravir Not Reported [facility] Cabotegravir Not Reported [facility] Dolutegravir Not Reported [facility] Elvitegravir Not Reported [facility] Raltegravir Not Reported [facility] Prior documented HIV RNA copies/mL Not Reported [facility] Blood 07/05/2024 6:55 AM MINER HELPER 07/07/2024 12:11 PM MINER HELPER Reji Melara MD LAB MICROBIOLOGY - GENERAL ORDERABLES Final Result Performing Organization Address [facility] [place] de Phone Number [place] [address] * N. gonorrhoeae/C. trachomatis Amplification Urine (07/05/2024 6:39 AM MINER HELPER) Pathologist [facility] C. trachomatis Not Detected Not Detected [facility] N. gonorrhoeae Not Detected Not Detected [facility] Comment: Interpretive Data This assay detects Chlamydia trachomatis and Neisseria gonorrhoeae by nucleic acid amplification testing (NAAT). This assay has been cleared by the [place] Food and Drug administration. The performance characteristics of this test have been verified by the [facility] Molecular Infectious Disease laboratory. The performance characteristics of this test have not been evaluated in individuals less than 14 years of age. Current Interpretive Data last revised 2023. Urine (None) 07/05/2024 6:39 AM MINER HELPER 07/05/2024 6:54 AM MINER HELPER Reji Melara MD LAB MICROBIOLOGY - GENERAL ORDERABLES Final Result Performing Organization Address [facility] [place] de Phone Number [facility] [place] [address] [facility] * Trichomonas vaginalis PCR Urine (07/05/2024 6:39 AM MINER HELPER) Pathologist [facility] Trichomonas DNA Not Detected Not Detected [facility] Comment: Interpretive Data This assay detects Trichomonas vaginalis by nucleic acid amplification testing (NAAT). This assay has been cleared by the [place] Food and Drug administration. The performance characteristics of this test have been verified by the [facility] Molecular Infectious Disease laboratory. Excess blood in specimens may be inhibitory and result in false negative results. ??The performance of this test has not been evaluated in women or individuals less than 18 years of age. Current Interpretive Data last revised 2023. Urine 07/05/2024 6:39 AM MINER HELPER 07/05/2024 6:54 AM MINER HELPER Reji Melara MD LAB MICROBIOLOGY - GENERAL ORDERABLES Final Result Performing Organization Address [facility] [place] [address] [facility] * Hepatitis panel, acute Blood (07/05/2024 6:10 AM MINER HELPER) [facility] Hep A IgM Nonreactive Nonreactive Hep B core IgM Nonreactive Nonreactive [facility] Hep C Ab Nonreactive Nonreactive [facility] Comment:Antibodies to HCV no t detected. Does NOT exclude the possibility of recent exposure to HCV. Current interpretive data was last revised on 22 HepBsAg Nonreactive Nonreactive [facility] Blood 07/05/2024 6:10 AM MINER HELPER 07/05/2024 6:35 AM MINER HELPER Reji Melara MD [facility] MICROBIOLOGY - GENERAL ORDERABLES Final Result Performing Organization Address [facility] [place] [address] * (ABNORMAL) HIV-1 RNA PCR, quantitative Blood (07/05/2024 6:10 AM MINER HELPER) [facility] HIV-1 RNA Detected( A) [facility] Comment: The quantifiable range of this assay is 20 copies/mL to 10,000,000 copies/mL (1.30 log copies/mL to 7.00 log copies/mL). ??Testing was performed by the [employer] 6800 HIV-1 Test([employer] Testing performed at [facility] Current Interpretive Data was last revised on 2021. HIV-1 RNA, copies/mL 103,000 copies/mL [facility] HIV-1 RNA, log 5.01 log cps/mL [facility] Blood 07/05/2024 6:10 AM MINER HELPER 07/05/2024 7:17 AM MINER HELPER Reji Melara MD LAB MICROBIOLOGY - GENERAL ORDERABLES Final Result Performing Organization Address [facility] [place] de Phone Number [facility] [place] [address] [facility] * POCT glucose (07/05/2024 5:55 AM MINER HELPER) [facility] Glucose, POC 113 70 - 199 mg/dL Blood 07/05/2024 5:55 AM MINER HELPER 07/05/2024 5:55 AM MINER HELPER Reji Melara MD LAB POCT ORDERABLES - DEVIC E Final Result Performing Organization Address [facility] [place] de Phone Number [facility] [place] [address] * eGFR (07/04/2024 9:39 PM MINER HELPER) [facility] eGFR 81 >=60 mL/min/1. 73 m2 Comment: Interpretive Data Reference Interval Normal ?>/= 90 mL/min/1.73m2 Mildly decreased* ? 60 - 89 mL/min/1.73m2 Mildly to moderately decreased ?45 - 59 mL/min/1.73m2 Moderately to severely decreased ??30 - 44 mL/min/1.73m2 Severely decreased ?15 - 29 mL/min/1.73m2 Kidney Failure ?< 15 ??mL/min/1.73m2 *Relative to young adult level Estimated glomerular filtration rate is determined by the 2020 CKD-EPI equation recommended by the National Kidney Foundation (A Unifying Approach to GFR Estimation: Recommendations of the NKF-ASK Task Force on Reassessing the Inclusion of Race in Diagnosing Kidney Disease, JASN 2020). The CKD-EPI equation should not be used for patients with unstable renal function and has not been validated in children and those over 70. Current interpretive data was last reviewed 2021. Blood 07/04/2024 9:39 PM MINER HELPER 07/04/2024 9:53 PM MINER HELPER us Federico Kelley MD LAB BLOOD ORDERABLES Antonina jhaveri Result [facility] [place] [address] * (ABNORMAL) Differential, auto (07/04/2024 9:39 PM MINER HELPER) Neutrophil abs 6.8(H) 1.5 - 6.5 K/cumm Imm gran abs 0.2(H) 0.0 - 0.1 K/cumm [facility] Lymphocyte abs 1.1 0.8 - 3.3 K/cumm [facility] Monocyte abs 0.6 0.2 - 0.8 K/cumm [facility] Eosinophil abs 0.0 0.0 - 0.5 K/cumm [facility] Basophil abs 0.0 0.0 - 0.1 K/cumm [facility] Neutrophil pct 78.0 % [facility] Comment: Interpretive Data Percent cell count reference ranges are not reported, since discordance with absolute values may lead to misinterpretation of CBC data. Current Interpretive Data was last revised on 2017. Imm gran pct 2.0 % [facility] Comment: Interpretive Data Percent cell count reference ranges are not reported, since discordance with absolute values may lead to misinterpretation of CBC data. Current Interpretive Data was last revised on 2017. Lymphocyte pct 13.0 % [facility] Comment: Interpretive Data Percent cell count reference ranges are not reported, since discordance with absolute values may lead to misinterpretation of CBC data. Current Interpretive Data was last revised on 2017. Monocyte pct 6.6 % [facility] Comment: Interpretive Data Percent cell count reference ranges are not reported, since discordance with absolute values may lead to misinterpretation of CBC data. Current Interpretive Data was last revised on 2017. Eosinophil pct 0.1 % [facility] Comment: Interpretive Data Percent cell count reference ranges are not reported, since discordance with absolute values may lead to misinterpretation of CBC data. Current Interpretive Data was last revised on 2017. Basophil pct 0.3 % [facility] Comment: Interpretive Data Percent cell count reference ranges are not reported, since discordance with absolute values may lead to misinterpretation of CBC data. Current Interpretive Data was last revised on 2017. Blood 07/04/2024 9:39 PM MINER HELPER 07/04/2024 9:53 PM MINER HELPER Federico Kelley MD LAB BLOOD ORDERABLES Antonina l Result [facility] [place] [address] * (ABNORMAL) CBC with auto differential (07/04/2024 9:39 PM MINER HELPER) WBC 8.7 3.8 - 9.9 K/cumm Hgb 10.1(L) 13.0 - 17.5 g/dL [facility] Hct 31.6(L) 38.9 - 50.3 % [facility] Plt 260 150 - 400 K/cumm [facility] MPV 9.9 9.1 - 12.3 fL [facility] RBC 4.18(L) 4.30 - 5.80 M/cumm [facility] MCV 75.6(L) 81.3 - 96.4 fL [facility] MCH 24.2(L) 27.1 - 33.3 pg [facility] MCHC 32.0(L) 32.3 - 35.7 g/dL [facility] RDW CV 16.9(H) 11.1 - 14.9 % [facility] RDW SD 45.7 35.7 - 48.1 fL [facility] NRBC abs 0.00 0.00 - 0.01 K/cumm [facility] Blood 07/04/2024 9:39 PM MINER HELPER 07/04/2024 9:53 PM MINER HELPER Federico Kelley MD LAB BLOOD ORDERABLES Antonina l Result Performing Organization Address [facility] Co de Phone Number [facility] [place] [address] * Magnesium (07/04/2024 9:39 PM MINER HELPER) [facility] Magnesium 1.7 1.4 - 2.5 mg/dL Blood 07/04/2024 9:39 PM MINER HELPER 07/04/2024 9:53 PM MINER HELPER Federico Kelley MD LAB BLOOD ORDERABLES Antonina l Result Performing Organization Address [facility] [place] de Phone Number [facility] Department [place] [address] * (ABNORMAL) Basic metabolic panel (07/04/2024 9:39 PM MINER HELPER) [facility] Sodium 138 135 - 145 mmol/L Potassium, pl 3.7 3.3 - 4.9 mmol/L [facility] Chloride 104 97 - 110 mmol/L [facility] CO2 27 22 - 32 mmol/L [facility] Anion gap 7 2 - 15 mmol/L [facility] BUN 14 6 - 25 mg/dL [facility] Creatinine 1.23 0.80 - 1.30 mg/dL [facility] Glucose 106 70 - 199 mg/dL [facility] Comment: Interpretive Data Fasting glucose >/= 126 mg/dl is diagnostic for diabetes. ?? Fasting is defined as no caloric intake for at least 8 hours. Fasting glucose between 100 mg/dl to 125 mg/dl is diagnostic of prediabetes. In a patient with classic symptoms of hyperglycemia or hyperglycemic crisis, a random glucose >/= 200 mg/dl is diagnostic for diabetes. In the absence of unequivocal hyperglycemia, results should be confirmed by repeat testing. The classification and Diagnosis of Diabetes Diabetes Care 2021; 46: S19-S40. Current interpretive data was last revised 2022. Calcium 8.1(L) 8.5 - 10.3 mg/dL [facility] Blood 07/04/2024 9:39 PM MINER HELPER 07/04/2024 9:53 PM MINER HELPER us Federico Kelley MD LAB BLOOD ORDERABLES Antonina l Result [facility] [place] [address] * US Kidney Complete (07/04/2024 5:13 PM MINER HELPER) Anatomical Region Laterality Modality Kidney N/A Ultrasound 07/04/2024 5:36 PM MINER HELPER Impressions 07/04/2024 5:46 PM MINER HELPER Mixed cystic and solid lesion in the mid zone of the left kidney may represent a developing abscess in the setting of bilateral pyelonephritis and pyelitis, however the majority of this lesion is not liquid and would not be amenable to drainage. Dictated by: Ernesto Vides MD The radiology attending physician has personally reviewed this study, and had reviewed and/or edited this written report and agrees with it. Electronically signed by: Yeimy Billingsley M.D. Narrative 07/04/2024 5:46 PM MINER HELPER EXAMINATION: COMPLETE RENAL SONOGRAM HISTORY: ??Left-sided flank pain, recent CT showing bilateral pyelonephritis, concern for renal abscess. History of HIV COMPARISON: ??Earlier same day CT abdomen pelvis FINDINGS: ?? Kidneys: There are patchy areas of increased echogenicity throughout both kidneys with associated urothelial thickening bilaterally in keeping with known pyelonephritis and pyelitis respectively. . The kidneys are normal in size. ??The right kidney measures 12.2 cm in length, and the left, 11.4 cm in length. There is minimal right hydronephrosis. No left hydronephrosis.. In the mid zone of the left kidney there are multiple cystic areas with areas of phlegmon measuring up to 3.3 x 3.3 x 2.4 cm. There are no definite renal calculi visualized. Small focus of increased echogenicity in the left kidney inferior pole without associated twinkle artifact. Bladder: The urinary bladder is normal Procedure Note Yeimy Billingsley MD - 07/04/2024 EXAMINATION: COMPLETE RENAL SONOGRAM HISTORY: Left-sided flank pain, recent CT showing bilateral pyelonephritis, concern for renal abscess. History of HIV COMPARISON: Earlier same day CT abdomen pelvis FINDINGS: Kidneys: There are patchy areas of increased echogenicity throughout both kidneys with associated urothelial thickening bilaterally in keeping with known pyelonephritis and pyelitis respectively. . The kidneys are normal in size. The right kidney measures 12.2 cm in length, and the left, 11.4 cm in length. There is minimal right hydronephrosis. No left hydronephrosis.. In the mid zone of the left kidney there are multiple cystic areas with areas of phlegmon measuring up to 3.3 x 3.3 x 2.4 cm. There are no definite renal calculi visualized. Small focus of increased echogenicity in the left kidney inferior pole without associated twinkle artifact. Bladder: The urinary bladder is normal IMPRESSION: Mixed cystic and solid lesion in the mid zone of the left kidney may represent a developing abscess in the setting of bilateral pyelonephritis and pyelitis, however the majority of this lesion is not liquid and would not be amenable to drainage. Dictated by: Ernesto Vides MD The radiology attending physician has personally reviewed this study, and had reviewed and/or edited this written report and agrees with it. Electronically signed by: Yeimy Billingsley M.D. us Karen Barrientos MD IMG US PROCEDURES Fi nal Result * Blood culture Blood (07/04/2024 4:57 PM MINER HELPER) Report Final Report: No growth Blood 07/04/2024 4:57 PM MINER HELPER 07/04/2024 5:10 PM MINER HELPER Narrative [facility] - 07/09/2024 7:00 AM MINER HELPER Collection->Peripheral 1. ?Blood cultures are incubated for 4 days on a continuously monitored blood culture system. The first report of a negative culture is issued within 24 hours of receipt of the specimen in the laboratory. 2. ?Positive culture results are reported as soon as they are detected. 3. ?The most important factor for detection of microbes in the setting of bloodstream infection is the volume of blood submitted for culture. Failure to collect an optimal blood volume can result in false negative blood cultures. 4. ? For pediatric patients, the recommended blood volume to collect follows a weight based strategy. See the electronic test catalog for collection instructions. 5. ?For positive blood cultures, a rapid molecular test may be performed for organism identification using the [employer] e[employer]lex blood culture identification panel for gram positive (BCID-GP) and gram negative (BCID-GN) organisms. This nucleic acid amplification test detects microbial DNA in positive blood culture broth. This assay has been cleared by the [place] Food and Drug Administration and its performance characteristics have been verified by the [facility]biology Laboratory. For questions about this culture, contact the Microbiology Laboratory at [phone]. Interpretive data was last revised on 24. Federico Kelley MD LAB MICROBIOLOGY - GENERA L ORDERABLES Final Result [facility] [place] [address] * (ABNORMAL) Blood culture Blood (07/04/2024 4:57 PM MINER HELPER) Pathologist [facility] Direct Specimen Exam Molecular Analysis: Staphylococcus species detected by the neeru eplex BCID-GP panel. Single positive culture may represent contamination. This is most suggestive of a coagulase-negative Staphylococcus species. Please refer to final culture-based result for confirmation. This test does not exclude the possibility of a mixed bacterial infection. Notification of: Staphylococcus species called to and read back by: Dorothy Martinez MD ([phone]) on 07/05/2024 10:24 by: Munira Blair MT Direct Specimen Exam Stain: Gram Positive Cocci in clusters Time to culture positivity (aerobic media): 14.3 hours Notification of: Gram Positive Cocci in clusters called to and read back by: MD Michelle ([phone]) on 07/05/2024 08:19 by: Munira Blair MT [facility] Report Final Report: Staphylococcus haemolyticus Single blood culture positive for this microorganism. ??Isolate is a possible contaminant. If a similar isolate is recovered from a second blood culture collected within 3 days of this culture, both will be evaluated and, if determined to be the same species, antimicrobial susceptibility testing will be performed. (.) [facility] Organism STAPHYLOCOCCUS HAEMOLYTICUS [facility] Blood 07/04/2024 4:57 PM MINER HELPER 07/04/2024 5:09 PM MINER HELPER Narrative [facility] - 07/09/2024 8:42 PM MINER HELPER Collection->Peripheral 1. ?Blood cultures are incubated for 4 days on a continuously monitored blood culture system. The first report of a negative culture is issued within 24 hours of receipt of the specimen in the laboratory. 2. ?Positive culture results are reported as soon as they are detected. 3. ?The most important factor for detection of microbes in the setting of bloodstream infection is the volume of blood submitted for culture. Failure to collect an optimal blood volume can result in false negative blood cultures. 4. ? For pediatric patients, the recommended blood volume to collect follows a weight based strategy. See the electronic test catalog for collection instructions. 5. ?For positive blood cultures, a rapid molecular test may be performed for organism identification using the [employer] ePlex blood culture identification panel for gram positive (BCID-GP) and gram negative (BCID-GN) organisms. This nucleic acid amplification test detects microbial DNA in positive blood culture broth. This assay has been cleared by the [place] Food and Drug Administration and its performance characteristics have been verified by the [facility]. For questions about this culture, contact the Microbiology Laboratory at [phone]. Interpretive data was last revised on 24. Federico Kelley MD LAB MICROBIOLOGY - GENERA L ORDERABLES Final Result [facility] [place] [address] * MRI Brain Incl Orbits W WO Contrast (07/04/2024 2:42 PM MINER HELPER) Anatomical Region Laterality Modality Head and Neck N/A Magnetic Resonan ce 07/04/2024 3:23 PM MINER HELPER Impressions 07/04/2024 3:36 PM MINER HELPER No MR evidence of acute intracranial abnormality. 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 ?? Note that orbital sequences are to be repeated due to likely artifact and an addendum will be performed if there are any significant changes with these images. Dictated by: Shon Lorenzo MD The results and plans for repeat sequences as above were discussed with Dr. Samantha Holman by Dr. Shon Lorenzo ??on 07/04/2024 at 3:15 PM. The radiology attending physician has personally reviewed this study, and had reviewed and/or edited this written report and agrees with it. Electronically signed by: Gwendolyn Gonzalez M.D. Narrative 07/04/2024 3:36 PM MINER HELPER EXAMINATION: 1. Magnetic resonance imaging (MRI) of the brain and brainstem without and with contrast 2. Magnetic resonance imaging (MRI) of the orbits without and with contrast HISTORY: 28-year-old with history that includes HIV and neurosyphilis. ??Patient with difficulty with coordination, along with right leg weakness and numbness. 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 TECHNIQUE: Multiplanar multi-weighted MRI of the brain and brainstem was performed without and with intravenous contrast using the general brain protocol. Multiplanar multi-weighted MRI of the orbits was performed without and with intravenous contrast using the standard protocol. This included multiplanar high resolution imaging of the orbits and optic nerves. Contrast information: 15 mL Gadoterate Meglumine COMPARISON: MRI dated 10/13/2023. ??CT dated 07/03/2024 was also reviewed. FINDINGS: ORBITS: Note that there is increased T2 signal about the left orbit, along with some apparent contrast enhancement in this region that is likely related to artifact/coil positioning. ??Sequences are to be repeated later on 07/04/2024. Both globes are normal in shape and outline without proptosis. The extraocular muscles are normal in size. No intra- or extraconal masses are present. The intraconal fat is normal. The orbital jaimes are intact. The lacrimal glands are normal in appearance. Meckel's cave appears normal on each side. The carotid artery flow voids are normal. The optic nerves and optic chiasm are normal. The suprasellar cistern is normal. BRAIN: There is cerebral volume loss out of proportion for patient's age. 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 The scalp and calvarium are normal. The superior sagittal sinus demonstrates normal venous flow. The corpus callosum is normal in shape and signal intensity. The posterior fossa is unremarkable. The pituitary and sella are normal. The brainstem and craniocervical junction are unremarkable. Diffusion weighted images reveal no hyperintensities to suggest acute cerebral infarction. The susceptibility weighted sequences reveal no evidence of acute or chronic hemorrhage. The ventricles are normal in size and position without evidence of hydrocephalus. ??Right sphenoid mucous retention cyst and bilateral maxillary sinus mucosal thickening. ?? Trace bilateral mastoid effusions. Normal flow voids are demonstrated in the carotid arteries and basilar artery. There is no abnormal contrast enhancement. Procedure Note Gwendolyn Way MD - 07/04/2024 EXAMINATION: 1. Magnetic resonance imaging (MRI) of the brain and brainstem without and with contrast 2. Magnetic resonance imaging (MRI) of the orbits without and with contrast HISTORY: 28-year-old with history that includes HIV and neurosyphilis. Patient with difficulty with coordination, along with right leg weakness and numbness. 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 TECHNIQUE: Multiplanar multi-weighted MRI of the brain and brainstem was performed without and with intravenous contrast using the general brain protocol. Multiplanar multi-weighted MRI of the orbits was performed without and with intravenous contrast using the standard protocol. This included multiplanar high resolution imaging of the orbits and optic nerves. Contrast information: 15 mL Gadoterate Meglumine COMPARISON: MRI dated 10/13/2023. CT dated 07/03/2024 was also reviewed. FINDINGS: ORBITS: Note that there is increased T2 signal about the left orbit, along with some apparent contrast enhancement in this region that is likely related to artifact/coil positioning. Sequences are to be repeated later on 07/04/2024. Both globes are normal in shape and outline without proptosis. The extraocular muscles are normal in size. No intra- or extraconal masses are present. The intraconal fat is normal. The orbital jaimes are intact. The lacrimal glands are normal in appearance. Meckel's cave appears normal on each side. The carotid artery flow voids are normal. The optic nerves and optic chiasm are normal. The suprasellar cistern is normal. BRAIN: There is cerebral volume loss out of proportion for patient's age. 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 The scalp and calvarium are normal. The superior sagittal sinus demonstrates normal venous flow. The corpus callosum is normal in shape and signal intensity. The posterior fossa is unremarkable. The pituitary and sella are normal. The brainstem and craniocervical junction are unremarkable. Diffusion weighted images reveal no hyperintensities to suggest acute cerebral infarction. The susceptibility weighted sequences reveal no evidence of acute or chronic hemorrhage. The ventricles are normal in size and position without evidence of hydrocephalus. Right sphenoid mucous retention cyst and bilateral maxillary sinus mucosal thickening. Trace bilateral mastoid effusions. Normal flow voids are demonstrated in the carotid arteries and basilar artery. There is no abnormal contrast enhancement. IMPRESSION: No MR evidence of acute intracranial abnormality. 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 Note that orbital sequences are to be repeated due to likely artifact and an addendum will be performed if there are any significant changes with these images. Dictated by: Shon Lorenzo MD The results and plans for repeat sequences as above were discussed with Dr. Samantha Holman by Dr. Shon Lorenzo on 07/04/2024 at 3:15 PM. The radiology attending physician has personally reviewed this study, and had reviewed and/or edited this written report and agrees with it. Electronically signed by: Gwendolyn Gonzalez M.D. us Nando Kennedy MD IMG MRI PROCEDURES Final Resul t * CT Abdomen Pelvis W Contrast (07/04/2024 12:25 PM MINER HELPER) Anatomical Region Laterality Modality Body N/A Computed Tomogra phy 07/04/2024 12:3 4 PM MINER HELPER Impressions 07/04/2024 12:34 PM MINER HELPER Bilateral pyelonephritis and pyelitis. Electronically signed by: Juan Mason M.D. Narrative 07/04/2024 12:34 PM MINER HELPER EXAMINATION: ??Computed tomography of the abdomen and pelvis with intravenous contrast HISTORY: Flank pain TECHNIQUE: ??Transaxial computed tomographic images of the abdomen and pelvis were obtained with intravenous contrast according to the standard protocol after the uneventful administration of 75 mL Opti-Ray 350 intravenous contrast. COMPARISON: CT dated 10/27/2022. FINDINGS: Mild dependent atelectasis. ??No pleural or pericardial effusion. Unchanged hypoattenuating lesion favored to represent a hemangioma in the liver dome. ??No new focal hepatic lesion. ??The gallbladder is normal. ??The spleen and pancreas are normal. ??The adrenal glands are normal. There is new perinephric stranding with areas of hypoattenuation most pronounced within the left kidney, but present also within the right kidney, with urothelial thickening and enhancement and periureteral stranding on both sides. ??No hydronephrosis. ??There is urinary bladder wall thickening diffusely in keeping with cystitis. The bowel is normal in caliber without evidence of obstruction or focal bowel wall thickening. ??No free intraperitoneal air. ??Abdominal aorta is normal in caliber without aneurysm or calcified atherosclerosis. ??The patient has undergone right inguinal hernia repair. No suspicious osseous lesion. Procedure Note Juan Mason MD - 07/04/2024 EXAMINATION: Computed tomography of the abdomen and pelvis with intravenous contrast HISTORY: Flank pain TECHNIQUE: Transaxial computed tomographic images of the abdomen and pelvis were obtained with intravenous contrast according to the standard protocol after the uneventful administration of 75 mL Opti-Ray 350 intravenous contrast. COMPARISON: CT dated 10/27/2022. FINDINGS: Mild dependent atelectasis. No pleural or pericardial effusion. Unchanged hypoattenuating lesion favored to represent a hemangioma in the liver dome. No new focal hepatic lesion. The gallbladder is normal. The spleen and pancreas are normal. The adrenal glands are normal. There is new perinephric stranding with areas of hypoattenuation most pronounced within the left kidney, but present also within the right kidney, with urothelial thickening and enhancement and periureteral stranding on both sides. No hydronephrosis. There is urinary bladder wall thickening diffusely in keeping with cystitis. The bowel is normal in caliber without evidence of obstruction or focal bowel wall thickening. No free intraperitoneal air. Abdominal aorta is normal in caliber without aneurysm or calcified atherosclerosis. The patient has undergone right inguinal hernia repair. No suspicious osseous lesion. IMPRESSION: Bilateral pyelonephritis and pyelitis. Electronically signed by: Juan Mason M.D. Nando Kennedy MD IMG CT PROCEDURES Final Result * (ABNORMAL) Sepsis Lactate w/ Reflex (07/04/2024 11:28 AM MINER HELPER) Pathologist [facility] Sepsis Lactate 0.6(L) 0.7 - 2.0 mmol/L Blood 07/04/2024 11:2 8 AM MINER HELPER 07/04/2024 11:46 AM MINER HELPER Karen Barrientos MD LAB BLOOD ORDERABLES Final Result [facility] Department [place] [address] * (ABNORMAL) Blood culture Blood (07/04/2024 11:28 AM MINER HELPER) Pathologist [facility] Direct Specimen Exam Molecular Analysis: Presumptive Escherichia coli detected by neeru ePlex BCID-GN panel. This test does not exclude the possibility of a mixed bacterial infection. Notification of: Escherichia coli called to and read back by: Martha Haynes MD [phone] on 07/05/2024 02:55:57 by: Peyton Linn MT Direct Specimen Exam Stain: Gram Negative Bacilli Time to culture positivity (aerobic media): 10.9 hours Notification of: Gram Negative Bacilli called to and read back by: Peter Castle MD [phone] on 07/04/2024 23:43:05 by: Peyton Linn MT [facility] Report Final Report: Escherichia coli (.) [facility] Organism ESCHERICHIA COLI [facility] Blood 07/04/2024 11:2 8 AM MINER HELPER 07/04/2024 11:49 AM MINER HELPER Narrative [facility] - 07/09/2024 2:38 PM MINER HELPER Collection->Peripheral 1. ?Blood cultures are incubated for 4 days on a continuously monitored blood culture system. The first report of a negative culture is issued within 24 hours of receipt of the specimen in the laboratory. 2. ?Positive culture results are reported as soon as they are detected. 3. ?The most important factor for detection of microbes in the setting of bloodstream infection is the volume of blood submitted for culture. Failure to collect an optimal blood volume can result in false negative blood cultures. 4. ? For pediatric patients, the recommended blood volume to collect follows a weight based strategy. See the electronic test catalog for collection instructions. 5. ?For positive blood cultures, a rapid molecular test may be performed for organism identification using the neeru ePlex blood culture identification panel for gram positive (BCID-GP) and gram negative (BCID-GN) organisms. This nucleic acid amplification test detects microbial DNA in positive blood culture broth. This assay has been cleared by the [place] Food and Drug Administration and its performance characteristics have been verified by the [facility]. For questions about this culture, contact the Microbiology Laboratory at [phone]. Interpretive data was last revised on 24. Organism Antibiotic Method Susceptibility Escherichia coli Ampicillin INTERPRETATION Intermediate Escherichia coli Cefazolin INTERPRETATION Susceptible Escherichia coli Gentamicin INTERPRETATION Susceptible Escherichia coli Ampicillin with Sulbactam INTERPRETAT ION Susceptible Escherichia coli Trimethoprim with Sulfamethoxazole IN TERPRETATION Susceptible Escherichia coli Meropenem INTERPRETATION Susceptible Escherichia coli Cefepime INTERPRETATION Susceptible Escherichia coli Ciprofloxacin INTERPRETATION Susceptible Escherichia coli Ceftazidime INTERPRETATION Susceptible Escherichia coli Ceftriaxone INTERPRETATION Susceptible Escherichia coli Piperacillin/Tazobactam INTERPRETATIO N Susceptible Karen Barrientos MD LAB MICROBIOLOGY - G ENERAL ORDERABLES Final Result Performing Organization Address [facility]/ZIP Co de Phone Number JOE HAYWARD Rajesh [facility] Department [place] [address] * Blood culture Blood (07/04/2024 11:28 AM MINER HELPER) Report Final Report: No growth Blood 07/04/2024 11:2 8 AM MINER HELPER 07/04/2024 11:49 AM MINER HELPER Narrative JOE HAYWARD - 07/08/2024 12:00 PM MINER HELPER Collection->Peripheral 1. ?Blood cultures are incubated for 4 days on a continuously monitored blood culture system. The first report of a negative culture is issued within 24 hours of receipt of the specimen in the laboratory. 2. ?Positive culture results are reported as soon as they are detected. 3. ?The most important factor for detection of microbes in the setting of bloodstream infection is the volume of blood submitted for culture. Failure to collect an optimal blood volume can result in false negative blood cultures. 4. ? For pediatric patients, the recommended blood volume to collect follows a weight based strategy. See the electronic test catalog for collection instructions. 5. ?For positive blood cultures, a rapid molecular test may be performed for organism identification using the neeru ePlex blood culture identification panel for gram positive (BCID-GP) and gram negative (BCID-GN) organisms. This nucleic acid amplification test detects microbial DNA in positive blood culture broth. This assay has been cleared by the [place] Food and Drug Administration and its performance characteristics have been verified by the [facility]. For questions about this culture, contact the Microbiology Laboratory at [phone]. Interpretive data was last revised on 24. Karen Barrientos MD LAB MICROBIOLOGY - G ENERAL ORDERABLES Final Result Performing Organization Address City/[facility]/ZIP Co de Phone Number JOE HAYWARD Rajesh [facility] Department [place] [address] * POCUS Retroperitoneal (AAA or Renal) (07/04/2024 11:21 AM MINER HELPER) Anatomical Region Laterality Modality Other 07/04/2024 11:0 9 AM MINER HELPER Narrative 07/07/2024 12:53 PM MINER HELPER Performed by: Roma Mckoy Renal/Bladder: ?Exam Information: ?Exam type: ??Diagnostic ?Indication(s) for Exam: ?Flank Pain ?Sides imaged: ??Both ?Findings left : ?L Hydronephrosis: ??Absent ?L Hydroureter: ??Present ?L Kidney stones: ??Absent ?L Renal cyst: ??Present ?Finding right: ?R Hydronephrosis: ??Absent ?R Hydroureter: ??Present ?R Kidney stones: ??Absent ?R Renal cyst: ??Absent ?R Other: ??periureteral stranding ?Interpretation: ?Renal : ?Hydronephrosis: ??Absent ?Hydroureter: ??Left, Right ?Nephrolithiasis: ??Absent ?Renal Cyst: ??Left ?Renal cyst left: ??Complex ?Bladder size: ??Collapsed ?Comments: ??hydroureter and periureteral stranding bilaterally, left kidney demonstrates hyperechoic densities on lateral aspect suggesting a developing abscess vs cyst or renal parenchymal inflammation/abnormality Electronically signed by KAREN BARRIENTOS on Sunday, July 07, 2024 at 12:53 PM I have reviewed the images & the resident's interpretation. I agree with the findings. Procedure Note Karen Barrientos MD - 07/07/2024 Performed by: Roma Mckoy Renal/Bladder: Exam Information: Exam type: Diagnostic Indication(s) for Exam: Flank Pain Sides imaged: Both Findings left : L Hydronephrosis: Absent L Hydroureter: Present L Kidney stones: Absent L Renal cyst: Present Finding right: R Hydronephrosis: Absent R Hydroureter: Present R Kidney stones: Absent R Renal cyst: Absent R Other: periureteral stranding Interpretation: Renal : Hydronephrosis: Absent Hydroureter: Left, Right Nephrolithiasis: Absent Renal Cyst: Left Renal cyst left: Complex Bladder size: Collapsed Comments: hydroureter and periureteral stranding bilaterally,left kidney demonstrates hyperechoic densities on lateral aspectsuggesting a developing abscess vs cyst or renal parenchymalinflammation/abnormality Electronically signed by KAREN BARRIENTOS on Saturday, July 07 at 12:53 PM I have reviewed the images & the resident's interpretation. I agree withthe findings. us Karen Barrientos MD POCUS ORDERABLES Fin al Result * eGFR (07/04/2024 10:07 AM MINER HELPER) eGFR >90 >=60 mL/min/1. 73 m2 Comment: Interpretive Data Reference Interval Normal ?>/= 90 mL/min/1.73m2 Mildly decreased* ? 60 - 89 mL/min/1.73m2 Mildly to moderately decreased ?45 - 59 mL/min/1.73m2 Moderately to severely decreased ??30 - 44 mL/min/1.73m2 Severely decreased ?15 - 29 mL/min/1.73m2 Kidney Failure ?< 15 ??mL/min/1.73m2 *Relative to young adult level Estimated glomerular filtration rate is determined by the 2020 CKD-EPI equation recommended by the National Kidney [employer] (A Unifying Approach to GFR Estimation: Recommendations of the NKF-ASK Task Force on Reassessing the Inclusion of Race in Diagnosing Kidney Disease, JASN 202). The CKD-EPI equation should not be used for patients with unstable renal function and has not been validated in children and those over 70. Current interpretive data was last reviewed 2021. Blood 07/04/2024 10:0 7 AM MINER HELPER 07/04/2024 10:27 AM MINER HELPER us Nando Kennedy MD LAB BLOOD ORDERABLES Final Res ult [facility] [place] [address] * (ABNORMAL) Differential, auto (07/04/2024 10:07 AM MINER HELPER) Neutrophil abs 4.9 1.5 - 6.5 K/cumm Imm gran abs 0.1 0.0 - 0.1 K/cumm [facility] Lymphocyte abs 1.2 0.8 - 3.3 K/cumm [facility] Monocyte abs 0.9(H) 0.2 - 0.8 K/cumm [facility] Eosinophil abs 0.0 0.0 - 0.5 K/cumm [facility] Basophil abs 0.0 0.0 - 0.1 K/cumm [facility] Neutrophil pct 69.4 % [facility] Comment: Interpretive Data Percent cell count reference ranges are not reported, since discordance with absolute values may lead to misinterpretation of CBC data. Current Interpretive Data was last revised on 2017. Imm gran pct 1.7 % [facility] Comment: Interpretive Data Percent cell count reference ranges are not reported, since discordance with absolute values may lead to misinterpretation of CBC data. Current Interpretive Data was last revised on 2017. Lymphocyte pct 16.6 % [facility] Comment: Interpretive Data Percent cell count reference ranges are not reported, since discordance with absolute values may lead to misinterpretation of CBC data. Current Interpretive Data was last revised on 2017. Monocyte pct 11.9 % [facility] Comment: Interpretive Data Percent cell count reference ranges are not reported, since discordance with absolute values may lead to misinterpretation of CBC data. Current Interpretive Data was last revised on 2017. Eosinophil pct 0.1 % [facility] Comment: Interpretive Data Percent cell count reference ranges are not reported, since discordance with absolute values may lead to misinterpretation of CBC data. Current Interpretive Data was last revised on 2017. Basophil pct 0.3 % [facility] Comment: Interpretive Data Percent cell count reference ranges are not reported, since discordance with absolute values may lead to misinterpretation of CBC data. Current Interpretive Data was last revised on 2017. Blood 07/04/2024 10:0 7 AM MINER HELPER 07/04/2024 10:27 AM MINER HELPER us Nando Kennedy MD LAB BLOOD ORDERABLES Final Res ult [facility] [place] [address] * (ABNORMAL) Urinalysis reflex to microscopic and culture Urine (07/04/2024 10:07 AM MINER HELPER) Color, ur Yellow Yellow Clarity, ur Cloudy(A) Clear [facility] Specific gravity, ur 1.012 1.003 - 1.030 [facility] pH, urine 6.5 [facility] Comment: Interpretive Data ? Urine pH is affected by diet, medications, systemic acid-base disturbances, and renal tubular function. ??pH may affect urinary stone formation. ??For example, urine pH below 6.0 may help reduce the tendency for calcium phosphate stones and pH greater than 6.0 may reduce the tendency for uric acid stone formation. Source: [facility] [employer] Current Interpretive Data was last revised on 2017 Protein, ur ql 1+(A) Negative [facility] Glucose, ur ql Negative Negative [facility] Ketones, ur Negative Negative [facility] Bilirubin, ur Negative Negative [facility] Blood, ur 2+(A) Negative [facility] Urobilinogen, ur <2.0 <2.0 mg/dL [facility] Nitrite, ur Positive(A) Negative [facility] Leukocyte esterase, ur 3+(A) Negative [facility] UA reflex comment Reflex to microscopic UA will be performed. [facility] Urine 07/04/2024 10:0 7 AM MINER HELPER 07/04/2024 10:22 AM MINER HELPER Nando Kennedy MD LAB MICROBIOLOGY - GENERAL ORD ERABLES Final Result Performing Organization Address [facility] Co de Phone Number [facility] [place] [address] * (ABNORMAL) CBC with auto differential (07/04/2024 10:07 AM MINER HELPER) WBC 7.1 3.8 - 9.9 K/cumm Hgb 10.9(L) 13.0 - 17.5 g/dL [facility] Hct 34.3(L) 38.9 - 50.3 % [facility] Plt 262 150 - 400 K/cumm [facility] MPV 10.3 9.1 - 12.3 fL [facility] RBC 4.50 4.30 - 5.80 M/cumm [facility] MCV 76.2(L) 81.3 - 96.4 fL [facility] MCH 24.2(L) 27.1 - 33.3 pg [facility] MCHC 31.8(L) 32.3 - 35.7 g/dL [facility] RDW CV 16.9(H) 11.1 - 14.9 % [facility] RDW SD 46.5 35.7 - 48.1 fL [facility] NRBC abs 0.00 0.00 - 0.01 K/cumm [facility] Blood 07/04/2024 10:0 7 AM MINER HELPER 07/04/2024 10:27 AM MINER HELPER Nando Kennedy MD LAB BLOOD ORDERABLES Final Res ult Performing Organization Address City/State/[facility] Co de Phone Number [facility] [place] [address] * (ABNORMAL) Urinalysis, microscopic only (07/04/2024 10:07 AM MINER HELPER) WBC, ur >50(A) 0 - 5 /HPF RBC, ur 11-20(A) 0 - 2 /HPF [facility] Bacteria, ur 4+(A) [facility] Mucous, ur Present(A) [facility] Amorphous crystals, ur 1+(A) [facility] Culture Reflex Comment Reflex to urine culture will be performed. [facility] Urine 07/04/2024 10:0 7 AM MINER HELPER 07/04/2024 10:22 AM MINER HELPER Nando Kennedy MD LAB URINE ORDERABLES Final Res ult Performing Organization Address [facility] de Phone Number [facility] [place] [address] * (ABNORMAL) T-helper cells (CD4) count (07/04/2024 10:07 AM MINER HELPER) CD4 pct 12(L) 31 - 64 % CD4 Absolute 132(L) 365 - 1,294 cells/mcL [facility] Blood 07/04/2024 10:0 7 AM MINER HELPER 07/04/2024 10:24 AM MINER HELPER Nando Kennedy MD LAB BLOOD ORDERABLES Final Res ult Performing Organization Address [facility] Co de Phone Number [facility] [place] [address] * (ABNORMAL) Urine culture Urine (07/04/2024 10:07 AM MINER HELPER) Report Final Report: Greater than or equal to 100,000 colonies/mL of Escherichia coli Plus growth of clinically insignificant bacterial vaibhav. (.) Organism ESCHERICHIA COLI [facility] Organism PLUS GROWTH OF CLINICALLY INSIGNIFICANT VAIBHAV. [facility] Urine 07/04/2024 10:0 7 AM MINER HELPER 07/04/2024 11:42 AM MINER HELPER Narrative [facility] - 07/06/2024 8:47 AM MINER HELPER Urine culture reflexed based upon urinalysis results. Testing performed by [facility] ([phone]) Organism Antibiotic Method Susceptibility Escherichia coli Ampicillin INTERPRETATION Intermediate Escherichia coli Cefazolin INTERPRETATION Susceptible Escherichia coli Nitrofurantoin INTERPRETATION Susceptible Escherichia coli Gentamicin INTERPRETATION Susceptible Escherichia coli Trimethoprim with Sulfamethoxazole IN TERPRETATION Susceptible Escherichia coli Meropenem INTERPRETATION Susceptible Escherichia coli Cefepime INTERPRETATION Susceptible Escherichia coli Ciprofloxacin INTERPRETATION Susceptible Escherichia coli Ceftazidime INTERPRETATION Susceptible Escherichia coli Ceftriaxone INTERPRETATION Susceptible Escherichia coli Piperacillin/Tazobactam INTERPRETATIO N Susceptible Escherichia coli Cephalexin INTERPRETATION Susceptible Escherichia coli Cefuroxime-axetil INTERPRETATION Susceptible Escherichia coli Cefdinir INTERPRETATION Susceptible Nando Kennedy MD LAB MICROBIOLOGY - GENERAL ORD ERABLES Final Result Performing Organization Address City/[facility]/ZIP Co de Phone Number [facility] [place] [address] * Lipase (07/04/2024 10:07 AM MINER HELPER) [facility] Lipase 55 10 - 99 Units/L Blood 07/04/2024 10:0 7 AM MINER HELPER 07/04/2024 10:27 AM MINER HELPER Nando Kennedy MD LAB BLOOD ORDERABLES Final Res ult [facility] [place] [address] * (ABNORMAL) Comprehensive metabolic panel (07/04/2024 10:07 AM MINER HELPER) Pathologist [facility] Sodium 142 135 - 145 mmol/L Potassium, pl 3.8 3.3 - 4.9 mmol/L [facility] Chloride 109 97 - 110 mmol/L [facility] CO2 23 22 - 32 mmol/L [facility] Anion gap 10 2 - 15 mmol/L [facility] BUN 13 6 - 25 mg/dL [facility] Creatinine 1.05 0.80 - 1.30 mg/dL [facility] Glucose 106 70 - 199 mg/dL [facility] Comment: Interpretive Data Fasting glucose >/= 126 mg/dl is diagnostic for diabetes. ?? Fasting is defined as no caloric intake for at least 8 hours. Fasting glucose between 100 mg/dl to 125 mg/dl is diagnostic of prediabetes. In a patient with classic symptoms of hyperglycemia or hyperglycemic crisis, a random glucose >/= 200 mg/dl is diagnostic for diabetes. In the absence of unequivocal hyperglycemia, results should be confirmed by repeat testing. The classification and Diagnosis of Diabetes Diabetes Care 2021; 46: S19-S40. Current interpretive data was last revised 2022. Calcium 8.7 8.5 - 10.3 mg/dL [facility] Bilirubin, total 0.3 0.1 - 1.2 mg/dL [facility] Protein, pl 7.2 6.5 - 8.5 g/dL [facility] Albumin 3.2(L) 3.5 - 5.0 g/dL [facility] Alk phos 88 40 - 130 Units/L [facility] ALT 41 7 - 55 Units/L [facility] AST 54(H) 10 - 50 Units/L [facility] Blood 07/04/2024 10:0 7 AM MINER HELPER 07/04/2024 10:27 AM MINER HELPER Nando Kennedy MD LAB BLOOD ORDERABLES Final Res ult [facility] [place] [address] * ECG 12-LEAD (07/03/2024 8:45 AM MINER HELPER) Narrative [facility] - 07/03/2024 8:45 AM MINER HELPER Chas Friedman MD ? 07/03/2024 ??8:47 AM ECG 12 lead Date/Time: 07/03/2024 8:45 AM Performed by: Chas Friedman MD Authorized by: Rafa Billings MD ?? Rate: ??ECG rate: ??69 beats per minute ??ECG rate assessment: normal ?? Rhythm: ??Rhythm: sinus rhythm ?? Ectopy: ??Ectopy: none ?? QRS: ??QRS axis: ??Normal ??QRS intervals: ??Normal Conduction: ??Conduction: normal ?? ST segments: ??ST segments: ??Normal T waves: ??T waves: normal ?? Previous ECG: ??Previous ECG: ??Compared to current ??Date of previous ECG: ??06/26/2024 ??Similarity: ??No change Interpretation: ??Interpretation: No significant change ?? Recommended Follow-up: ??Recommended follow up: further workup in the ED ?? Procedure Note Chas Friedman MD - 07/03/2024 8:45 AM CST Procedure ECG 12 lead Date/Time: 07/03/2024 8:45 AM Performed by: Chas Friedman MD Authorized by: Rafa Billings MD Rate: ECG rate: 69 beats per minute ECG rate assessment: normal Rhythm: Rhythm: sinus rhythm Ectopy: Ectopy: none QRS: QRS axis: Normal QRS intervals: Normal Conduction: Conduction: normal ST segments: ST segments: Normal T waves: T waves: normal Previous ECG: Previous ECG: Compared to current Date of previous EC06/26/2024 Similarity: No change Interpretation: Interpretation: No significant change Recommended Follow-up: Recommended follow up: further workup in the ED Chas Friedman MD 07/03/24 1380 us Rafa Billings MD ECG ORDERABLES Final Result [facility] * Troponin I high-sensitivity 2-hour (07/03/2024 7:25 AM MINER HELPER) Trop I hs <4 <=35 ng/L Comment: Interpretive Data For further hscTnI resources including the diagnostic algorithm and an aid in interpretation, copy and paste this link: https://bjhlab.testcatalog.org/show/hsTrop-1 Current Interpretive Data last revised 2020. Trop I hs delta 0 ng/L [facility] Trop I hs interp Insignificant [facility] Blood 07/03/2024 7:25 AM MINER HELPER 07/03/2024 7:31 AM MINER HELPER Brendan Cortes MD LAB BLOOD ORD ERABLES Final Result Performing Organization Address City/[facility] Co de Phone Number [facility] [place] [address] * (ABNORMAL) RPR Titer Blood (07/03/2024 7:25 AM MINER HELPER) RPR qn 1:32(A) Nonreactive Blood 07/03/2024 7:25 AM MINER HELPER 07/03/2024 7:36 AM MINER HELPER Rafa Billings MD LAB MICROBIOLOGY - GENERAL ORDERABLES Final Result Performing Organization Address [facility] de Phone Number [facility] [place] [address] * (ABNORMAL) RPR Blood (07/03/2024 7:25 AM MINER HELPER) RPR Reactive(A ) Nonreactive Blood 07/03/2024 7:25 AM MINER HELPER 07/03/2024 7:31 AM MINER HELPER Rafa Billings MD LAB MICROBIOLOGY - GENERAL ORDERABLES Final Result Performing Organization Address [facility] Co de Phone Number [facility] [place] [address] * Critical Care (07/03/2024 5:22 AM MINER HELPER) Narrative Brendan Cortes MD - 07/03/2024 5:22 AM MINER HELPER Brendan Cortes MD ? 07/03/2024 ??6:08 AM Critical Care Performed by: Brendan Cortes MD Authorized by: Brendan Cortes MD ?? Critical care provider statement: As reflected in the history, physical exam, orders, notes, and/or MDM, I was personally present while the patient was critically ill and provided critical care services for 20 minutes, excluding time involved in separately billable procedures. ??Critical care was necessary to treat or prevent imminent or life-threatening deterioration of the following condition(s): ?? severe neurologic condition ??Critical care was time spent by me providing the following: ? frequent neurologic exams and decision regarding acute lytic therapy ?? I provided emergent necessary critical care medicine services to this patient. I ordered and reviewed test results and/or imaging studies. I spent time discussing the management of this critically ill patient with consultants and the medical staff. I spent time discussing the management and therapeutic options for this critically ill patient with the patient themselves or with the appropriate designated surrogate decision-maker. I spent time documenting in the medical record. Brendan Cortes MD IN CLINIC/BED SIDE ORDERABLES Final Result * CTA/CTP Rapid Stroke (C) (07/03/2024 5:20 AM MINER HELPER) Anatomical Region Laterality Modality Head and Neck N/A Computed Tomogra phy 07/03/2024 5:33 AM MINER HELPER Impressions 07/03/2024 12:51 PM MINER HELPER 1. No CT evidence of stroke. 2. No significant carotid artery stenosis. The Critical results of the non-contrast head CT were discussed with Tonia Roberts by Dr. Rubin on 07/03/24 at 5:19AM ?? The Critical results of the CTA/CTP were discussed with Tonia Roberts by Dr. Rubin on 07/03/24 at 5:26AM ?? Dictated by: Yee Rubin MD The radiology attending physician has personally reviewed this study, and had reviewed and/or edited this written report and agrees with it. Electronically signed by: Lio Huynh MD Narrative 07/03/2024 12:51 PM MINER HELPER EXAMINATION: 1. Computed tomography angiography (CTA) of the head without and with contrast 2. Computed tomography angiography (CTA) of the neck with contrast 3. CT perfusion imaging of the head with contrast HISTORY: 28 years-old Male with right-sided numbness, vision changes and slurred speech TECHNIQUE: CT of the head was performed with images acquired from skull base to vertex without intravenous contrast. Computed tomographic angiography was then obtained from the aortic arch to the vertex following the uneventful administration of intravenous contrast. 3D images were generated on a dedicated workstation. CT perfusion of the brain was performed with intravenous contrast using a separate data acquisition. The data was transmitted to a separate workstation for processing by RAPID software (JAYS) to produce automated calculations of the estimated cerebral blood flow and Tmax. Contrast information: 120 mL Optiray-350 COMPARISON: CT head from 05/05/2024 FINDINGS: HEAD CT FINDINGS: There is no acute intracranial hemorrhage. There is no noncontrast evidence of acute stroke. There is no vascular hyperdensity of the M1 segments or basilar artery. There are no periventricular and deep white matter hypodensities. There are no lacunar infarcts. Cerebral volume is typical for age. There is unchanged, diffuse cerebral atrophy, out of proportion for age with symmetric ex vacuo dilatation of the ventricles. There are unchanged areas of periventricular hypoattenuation. Right sphenoid sinus retention cyst. There is no mass effect or midline shift. ANGIOGRAPHIC FINDINGS: The visualized aortic arch appears normal with normal configuration of the great vessels. There is no significant stenosis of the origins of the great vessels. There is no geographic area of vascular paucity in the brain. Left anterior circulation: L CCA: no occlusion or significant stenosis L carotid bifurcation: no occlusion or significant stenosis L ICA proximal: no occlusion or significant stenosis L ICA distal: no occlusion or significant stenosis L ICA terminus: no occlusion or significant stenosis L M1: no occlusion or significant stenosis L M2 branches: no occlusion or significant stenosis L A2: no occlusion or significant stenosis Right anterior circulation: R CCA: no occlusion or significant stenosis R carotid bifurcation: no occlusion or significant stenosis R ICA proximal: no occlusion or significant stenosis R ICA distal: no occlusion or significant stenosis R ICA terminus: no occlusion or significant stenosis R M1: no occlusion or significant stenosis R M2 branches: no occlusion or significant stenosis R A2: no occlusion or significant stenosis Posterior circulation: L Vertebral Artery: no occlusion or significant stenosis. L vertebral artery dominant R Vertebral Artery: no occlusion or significant stenosis Basilar Artery: no occlusion or significant stenosis L [employer]PECTOR [employer]IN: no occlusion or significant stenosis R INSPECTOR [employer] TRAIN: no occlusion or significant stenosis No cerebral aneurysm is seen. There is no evidence for an arteriovenous malformation. There is no suspicious cervical lymphadenopathy. There is no significant cervical spondylosis. There is cervical kyphosis with apex at C4, which may be positional in nature. Limited views of the lung apices are normal. PERFUSION FINDINGS: Estimated ischemic core volume (rCBF < 0.3): 0 mL Estimated hypoperfusion volume (Tmax > 6 sec): 0 mL Procedure Note Lio Huynh MD PhD - 07/03/2024 EXAMINATION: 1. Computed tomography angiography (CTA) of the head without and with contrast 2. Computed tomography angiography (CTA) of the neck with contrast 3. CT perfusion imaging of the head with contrast HISTORY: 28 years-old Male with right-sided numbness, vision changes and slurred speech TECHNIQUE: CT of the head was performed with images acquired from skull base to vertex without intravenous contrast. Computed tomographic angiography was then obtained from the aortic arch to the vertex following the uneventful administration of intravenous contrast. 3D images were generated on a dedicated workstation. CT perfusion of the brain was performed with intravenous contrast using a separate data acquisition. The data was transmitted to a separate workstation for processing by RAPID software (JAYS) to produce automated calculations of the estimated cerebral blood flow and Tmax. Contrast information: 120 mL Optiray-350 COMPARISON: CT head from 05/05/2024 FINDINGS: HEAD CT FINDINGS: There is no acute intracranial hemorrhage. There is no noncontrast evidence of acute stroke. There is no vascular hyperdensity of the M1 segments or basilar artery. There are no periventricular and deep white matter hypodensities. There are no lacunar infarcts. Cerebral volume is typical for age. There is unchanged, diffuse cerebral atrophy, out of proportion for age with symmetric ex vacuo dilatation of the ventricles. There are unchanged areas of periventricular hypoattenuation. Right sphenoid sinus retention cyst. There is no mass effect or midline shift. ANGIOGRAPHIC FINDINGS: The visualized aortic arch appears normal with normal configuration of the great vessels. There is no significant stenosis of the origins of the great vessels. There is no geographic area of vascular paucity in the brain. Left anterior circulation: L CCA: no occlusion or significant stenosis L carotid bifurcation: no occlusion or significant stenosis L ICA proximal: no occlusion or significant stenosis L ICA distal: no occlusion or significant stenosis L ICA terminus: no occlusion or significant stenosis L M1: no occlusion or significant stenosis L M2 branches: no occlusion or significant stenosis L A2: no occlusion or significant stenosis Right anterior circulation: R CCA: no occlusion or significant stenosis R carotid bifurcation: no occlusion or significant stenosis R ICA proximal: no occlusion or significant stenosis R ICA distal: no occlusion or significant stenosis R ICA terminus: no occlusion or significant stenosis R M1: no occlusion or significant stenosis R M2 branches: no occlusion or significant stenosis R A2: no occlusion or significant stenosis Posterior circulation: L Vertebral Artery: no occlusion or significant stenosis. L vertebral artery dominant R Vertebral Artery: no occlusion or significant stenosis Basilar Artery: no occlusion or significant stenosis L [employer]IN: no occlusion or significant stenosis R INSPECTOR [employer]IN: no occlusion or significant stenosis No cerebral aneurysm is seen. There is no evidence for an arteriovenous malformation. There is no suspicious cervical lymphadenopathy. There is no significant cervical spondylosis. There is cervical kyphosis with apex at C4, which may be positional in nature. Limited views of the lung apices are normal. PERFUSION FINDINGS: Estimated ischemic core volume (rCBF < 0.3): 0 mL Estimated hypoperfusion volume (Tmax > 6 sec): 0 mL IMPRESSION: 1. No CT evidence of stroke. 2. No significant carotid artery stenosis. The Critical results of the non-contrast head CT were discussed with Tonia Roberts by Dr. Rubin on 07/03/24 at 5:19AM The Critical results of the CTA/CTP were discussed with Tonia Roberts by Dr. Rubin on 07/03/24 at 5:26AM Dictated by: Yee Rubin MD The radiology attending physician has personally reviewed this study, and had reviewed and/or edited this written report and agrees with it. Electronically signed by: Lio Huynh MD Brendan Cortes MD IMG CT PROCED URES Final Result * POCT lactate (07/03/2024 5:19 AM MINER HELPER) [facility] Lactate POC i-STAT 1.5 0.7 - 2.2 mmol/L Blood 07/03/2024 5:19 AM MINER HELPER 07/03/2024 5:19 AM MINER HELPER us Notinfile Unknown LAB POCT ORDERABLES - DEVICE F inal Result Performing Organization Address [facility] de Phone Number [facility] [place] [address] * (ABNORMAL) POCT prothrombin time, whole blood (07/03/2024 5:17 AM MINER HELPER) Pathologist [facility] PT, POC 23.9(H) 10.6 - 13.5 sec INR, bld, POC 2.0(H) 0.9 - 1.2 [facility] Blood 07/03/2024 5:17 AM MINER HELPER 07/03/2024 5:17 AM MINER HELPER us Notinfile Unknown LAB POCT ORDERABLES - DEVICE F inal Result Performing Organization Address [facility] de Phone Number [facility] [place] [address] * (ABNORMAL) POC Blood Gas and Chemistries, Arterial - (07/03/2024 5:14 AM MINER HELPER) [facility] K POC 4.9 3.3 - 4.9 mmol/L Comment: Hemolyzed;K+ value may be falsely elevated 1.0-1.7 Interpretive Data Not all point of care methods assess for hemolysis. Confirm with instrument and retest K+ if not consistent with clinical signs and symptoms. Current Interpretive Data was last revised on 2023. Hct, POC 37.0(L) 41.4 - 51.6 % [facility] Total Hb, POC 12.2(L) 13.8 - 17.2 g/dL [facility] Blood 07/03/2024 5:14 AM MINER HELPER 07/03/2024 5:14 AM MINER HELPER us Notinfile Unknown LAB POCT ORDERABLES - DEVICE F inal Result Performing Organization Address [facility]/ZIP Co de Phone Number [facility] [place] [address] * POCT glucose (07/03/2024 5:13 AM MINER HELPER) [facility] Glucose, POC 129 70 - 199 mg/dL Blood 07/03/2024 5:13 AM MINER HELPER 07/03/2024 5:13 AM MINER HELPER Notinfile Unknown LAB POCT ORDERABLES - DEVICE F inal Result Performing Organization Address [facility] de Phone [place] [address] * Troponin I high-sensitivity series (baseline, 2hr, 4hr, 6hr) (07/03/2024 5:09 AM MINER HELPER) [facility] Trop I hs <4 <=35 ng/L Comment: Code Blue Specimen Interpretive Data For further hscTnI resources including the diagnostic algorithm and an aid in interpretation, copy and paste this link: https://bjhlab.testcatalog.org/show/hsTrop-[email or web address] Current Interpretive Data last revised 2020. Blood 07/03/2024 5:09 AM MINER HELPER 07/03/2024 5:16 AM MINER HELPER Rafa Billings MD LAB BLOOD ORDERA BLES Final Result Performing Organization Address [facility] de Phone Number [facility] [place] [address] * eGFR (07/03/2024 5:09 AM MINER HELPER) [facility] eGFR 83 >=60 mL/min/1. 73 m2 Comment: Code Blue Specimen Interpretive Data Reference Interval Normal ?>/= 90 mL/min/1.73m2 Mildly decreased* ? 60 - 89 mL/min/1.73m2 Mildly to moderately decreased ?45 - 59 mL/min/1.73m2 Moderately to severely decreased ??30 - 44 mL/min/1.73m2 Severely decreased ?15 - 29 mL/min/1.73m2 Kidney Failure ?< 15 ??mL/min/1.73m2 *Relative to young adult level Estimated glomerular filtration rate is determined by the 2020 CKD-EPI equation recommended by the National Kidney Foundation (A Unifying Approach to GFR Estimation: Recommendations of the NKF-ASK Task Force on Reassessing the Inclusion of Race in Diagnosing Kidney Disease, JASN 2020). The CKD-EPI equation should not be used for patients with unstable renal function and has not been validated in children and those over 70. Current interpretive data was last reviewed 2021. Blood 07/03/2024 5:09 AM MINER HELPER 07/03/2024 5:16 AM MINER HELPER us Rafa Billings MD LAB BLOOD ORDERA AIDAS Edited Result - Final [facility] [place] [address] * Differential, auto (07/03/2024 5:09 AM MINER HELPER) Neutrophil abs 3.7 1.5 - 6.5 K/cumm Imm gran abs 0.1 0.0 - 0.1 K/cumm [facility] Lymphocyte abs 0.9 0.8 - 3.3 K/cumm [facility] Monocyte abs 0.6 0.2 - 0.8 K/cumm [facility] Eosinophil abs 0.0 0.0 - 0.5 K/cumm [facility] Basophil abs 0.0 0.0 - 0.1 K/cumm [facility] Neutrophil pct 70.7 % [facility] Comment: Interpretive Data Percent cell count reference ranges are not reported, since discordance with absolute values may lead to misinterpretation of CBC data. Current Interpretive Data was last revised on 2017. Imm gran pct 0.9 % [facility] Comment: Interpretive Data Percent cell count reference ranges are not reported, since discordance with absolute values may lead to misinterpretation of CBC data. Current Interpretive Data was last revised on 2017. Lymphocyte pct 17.4 % [facility] Comment: Interpretive Data Percent cell count reference ranges are not reported, since discordance with absolute values may lead to misinterpretation of CBC data. Current Interpretive Data was last revised on 2017. Monocyte pct 10.4 % [facility] Comment: Interpretive Data Percent cell count reference ranges are not reported, since discordance with absolute values may lead to misinterpretation of CBC data. Current Interpretive Data was last revised on 2017. Eosinophil pct 0.2 % [facility] Comment: Interpretive Data Percent cell count reference ranges are not reported, since discordance with absolute values may lead to misinterpretation of CBC data. Current Interpretive Data was last revised on 2017. Basophil pct 0.4 % [facility] Comment: Interpretive Data Percent cell count reference ranges are not reported, since discordance with absolute values may lead to misinterpretation of CBC data. Current Interpretive Data was last revised on 2017. Blood 07/03/2024 5:09 AM MINER HELPER 07/03/2024 5:17 AM MINER HELPER Rafa Billings MD LAB BLOOD ORDERA BLES Final Result [facility] [place] [address] * (ABNORMAL) CBC with auto differential (07/03/2024 5:09 AM MINER HELPER) WBC 5.3 3.8 - 9.9 K/cumm Comment:Code Blue Specimen Hgb 11.6(L) 13.0 - 17.5 g/dL [facility] Hct 36.8(L) 38.9 - 50.3 % [facility] Plt 183 150 - 400 K/cumm [facility] MPV 9.6 9.1 - 12.3 fL [facility] RBC 4.75 4.30 - 5.80 M/cumm [facility] MCV 77.5(L) 81.3 - 96.4 fL [facility] MCH 24.4(L) 27.1 - 33.3 pg [facility] MCHC 31.5(L) 32.3 - 35.7 g/dL [facility] RDW CV 16.7(H) 11.1 - 14.9 % [facility] RDW SD 47.2 35.7 - 48.1 fL [facility] NRBC abs 0.00 0.00 - 0.01 K/cumm [facility] Blood (Blood, Venous) 07/03/2024 5:09 AM MINER HELPER 07/03/2024 5:17 AM MINER HELPER Narrative [facility] - 07/03/2024 5:24 AM MINER HELPER Potential Stroke Patient Rafa Billings MD LAB BLOOD ORDERA BLES Final Result Performing Organization Address City/State/[facility] Co de Phone Number [facility] [place] [address] * aPTT (07/03/2024 5:09 AM MINER HELPER) aPTT 30 28 - 38 sec Comment: Code Blue Specimen Interpretive Data Heparin therapeutic range: 66.0 - 100.0 seconds. Range based on correlation with therapeutic heparin activity range of 0.3 - 0.7 Units/mL. Current interpretive data was last revised on 2023. Blood (Blood, Venous) 07/03/2024 5:09 AM MINER HELPER 07/03/2024 5:16 AM MINER HELPER Narrative [facility] - 07/03/2024 5:31 AM MINER HELPER Potential stroke patient. Rafa Billings MD LAB BLOOD ORDERA BLES Final Result Performing Organization Address City/[facility]/ZIP Co de Phone Number [facility] [place] [address] * (ABNORMAL) Comprehensive metabolic panel (07/03/2024 5:09 AM MINER HELPER) Sodium 137 135 - 145 mmol/L Comment:Code Blue Specimen Potassium, pl 4.7 3.3 - 4.9 mmol/L [facility] Comment: Hemolyzed; Potassium value may be falsely elevated by as much as 0.6-1.0 mmol/L. ??Suggest redraw and reanalysis. Code Blue Specimen Chloride 102 97 - 110 mmol/L [facility] Comment:Code Blue Specimen CO2 26 22 - 32 mmol/L [facility] Comment:Code Blue Specimen Anion gap 9 2 - 15 mmol/L [facility] Comment:Code Blue Specimen BUN 16 6 - 25 mg/dL [facility] Comment:Code Blue Specimen Creatinine 1.20 0.80 - 1.30 mg/dL [facility] Comment:Code Blue Specimen Glucose 133 70 - 199 mg/dL [facility] Comment: Code Blue Specimen Interpretive Data Fasting glucose >/= 126 mg/dl is diagnostic for diabetes. ?? Fasting is defined as no caloric intake for at least 8 hours. Fasting glucose between 100 mg/dl to 125 mg/dl is diagnostic of prediabetes. In a patient with classic symptoms of hyperglycemia or hyperglycemic crisis, a random glucose >/= 200 mg/dl is diagnostic for diabetes. In the absence of unequivocal hyperglycemia, results should be confirmed by repeat testing. The classification and Diagnosis of Diabetes Diabetes Care 2021; 46: S19-S40. Current interpretive data was last revised 2022. Calcium 8.8 8.5 - 10.3 mg/dL [facility] Comment:Code Blue Specimen Bilirubin, total 0.3 0.1 - 1.2 mg/dL [facility] Comment:Code Blue Specimen Protein, pl 8.3 6.5 - 8.5 g/dL [facility] Comment:Code Blue Specimen Albumin 3.4(L) 3.5 - 5.0 g/dL [facility] Comment:Code Blue Specimen Alk phos 80 40 - 130 Units/L [facility] Comment:Code Blue Specimen ALT 46 7 - 55 Units/L [facility] Comment:Code Blue Specimen AST 102(H) 10 - 50 Units/L [facility] Comment: Hemolyzed; result may be falsely elevated Code Blue Specimen Blood (Blood, Venous) 07/03/2024 5:09 AM MINER HELPER 07/03/2024 5:16 AM MINER HELPER Narrative [facility] - 07/03/2024 5:55 AM MINER HELPER Potential Stroke Patient Rafa Billings MD LAB BLOOD ORDERA BLES Edited Result - Final Performing Organization Address [facility] Co de Phone Number [facility] [place] [address] * ECG 12-LEAD (06/26/2024 2:10 PM MINER HELPER) Narrative [facility] - 06/26/2024 2:10 PM MINER HELPER Chas Friedman MD ? 06/26/2024 ??2:11 PM ECG 12 lead Date/Time: 06/26/2024 2:10 PM Performed by: Chas Friedman MD Authorized by: Chas Friedman MD ?? Rate: ??ECG rate: ??54 beats per minute ??ECG rate assessment: bradycardic ?? Rhythm: ??Rhythm: sinus bradycardia ?? Ectopy: ??Ectopy: none ?? QRS: ??QRS axis: ??Normal ??QRS intervals: ??Normal Conduction: ??Conduction: normal ?? ST segments: ??ST segments: ??Normal T waves: ??T waves: normal ?? Other findings: ??Other findings: early repolarization ?? Previous ECG: ??Previous ECG: ??Compared to current ??Date of previous ECG: ??06/02/2024 ??Similarity: ??No change Interpretation: ??Interpretation: No significant change ?? Recommended Follow-up: ??Recommended follow up: further workup in the ED ?? Chas Friedman MD ECG ORDERABLES Final Res ult Performing Organization Address City/[facility]/ZIP Co de Phone Number [facility] * Influenza A/B, RSV, and COVID-19 PCR Nasopharyngeal (06/26/2024 9:53 AM MINER HELPER) COVID-19 RNA Negative Negative [facility] Influenza A RNA Negative Negative [facility] Influenza B RNA Negative Negative [facility] RSV RNA Negative Negative [facility] Comment: Interpretive data: Testing performed by [facility] ([phone]). This test is performed using the [employer] Xpert Xpress CoV-2/Flu/RSV plus assay. This is a multiplex, real-time reverse transcriptase PCR assay intended for the qualitative detection of nucleic acid from SARS-CoV-2, influenza A, influenza B, and respiratory syncytial virus. This assay has been cleared by the [place] Food and Drug administration. The performance characteristics have been verified by the [facility]. ??Results must be considered in the clinical context, and a negative result does not rule out infection. Interpretive Data last revised 2023 Nasopharyngeal 06/26/2024 9: 53 AM MINER HELPER 06/26/2024 10:04 AM MINER HELPER Narrative [facility] - 06/26/2024 11:46 AM MINER HELPER Is the Patient experiencing symptoms consistent with COVID?->Yes Chas Friedman MD LAB MICROBIOLOGY - GENERA L ORDERABLES Final Result [facility] [place] [address] [facility] * Troponin I high-sensitivity series (baseline, 2hr, 4hr, 6hr) (06/26/2024 9:19 AM MINER HELPER) Trop I hs 4 <=35 ng/L Comment: Interpretive Data For further hscTnI resources including the diagnostic algorithm and an aid in interpretation, copy and paste this link: [email or web address]/[email or web address] Current Interpretive Data last revised 2020. Blood 06/26/2024 9:19 AM MINER HELPER 06/26/2024 9:52 AM MINER HELPER Chas Friedman MD LAB BLOOD ORDERABLES Antonina l Result Performing Organization Address City/[facility]/ZIP Co de Phone Number JOE HAYWARD Rajesh [facility] [place] [address] * eGFR (06/26/2024 9:19 AM MINER HELPER) eGFR >90 >=60 mL/min/1. 73 m2 Comment: Interpretive Data Reference Interval Normal ?>/= 90 mL/min/1.73m2 Mildly decreased* ? 60 - 89 mL/min/1.73m2 Mildly to moderately decreased ?45 - 59 mL/min/1.73m2 Moderately to severely decreased ??30 - 44 mL/min/1.73m2 Severely decreased ?15 - 29 mL/min/1.73m2 Kidney Failure ?< 15 ??mL/min/1.73m2 *Relative to young adult level Estimated glomerular filtration rate is determined by the 2020 CKD-EPI equation recommended by the National Kidney Foundation (A Unifying Approach to GFR Estimation: Recommendations of the NKF-ASK Task Force on Reassessing the Inclusion of Race in Diagnosing Kidney Disease, JASN 2020). The CKD-EPI equation should not be used for patients with unstable renal function and has not been validated in children and those over 70. Current interpretive data was last reviewed 2021. Blood 06/26/2024 9:19 AM MINER HELPER 06/26/2024 9:52 AM MINER HELPER Chas Friedman MD LAB BLOOD ORDERABLES Antonina l Result Performing Organization Address City/[facility]/ZIP Co de Phone Number JOE HAYWARD Rajesh [facility] Department [place] [employer] [place] [place] [address] * Differential, auto (06/26/2024 9:19 AM MINER HELPER) Neutrophil abs 1.6 1.5 - 6.5 K/cumm Imm gran abs 0.0 0.0 - 0.1 K/cumm [facility] Lymphocyte abs 1.7 0.8 - 3.3 K/cumm [facility] Monocyte abs 0.4 0.2 - 0.8 K/cumm [facility] Eosinophil abs 0.1 0.0 - 0.5 K/cumm [facility] Basophil abs 0.0 0.0 - 0.1 K/cumm [facility] Neutrophil pct 42.9 % [facility] Comment: Interpretive Data Percent cell count reference ranges are not reported, since discordance with absolute values may lead to misinterpretation of CBC data. Current Interpretive Data was last revised on 2017. Imm gran pct 0.3 % [facility] Comment: Interpretive Data Percent cell count reference ranges are not reported, since discordance with absolute values may lead to misinterpretation of CBC data. Current Interpretive Data was last revised on 2017. Lymphocyte pct 45.1 % [facility] Comment: Interpretive Data Percent cell count reference ranges are not reported, since discordance with absolute values may lead to misinterpretation of CBC data. Current Interpretive Data was last revised on 2017. Monocyte pct 9.5 % [facility] Comment: Interpretive Data Percent cell count reference ranges are not reported, since discordance with absolute values may lead to misinterpretation of CBC data. Current Interpretive Data was last revised on 2017. Eosinophil pct 1.4 % [facility] Comment: Interpretive Data Percent cell count reference ranges are not reported, since discordance with absolute values may lead to misinterpretation of CBC data. Current Interpretive Data was last revised on 2017. Basophil pct 0.8 % [facility] Comment: Interpretive Data Percent cell count reference ranges are not reported, since discordance with absolute values may lead to misinterpretation of CBC data. Current Interpretive Data was last revised on 2017. Blood 06/26/2024 9:19 AM MINER HELPER 06/26/2024 9:52 AM MINER HELPER Chas Friedman MD LAB BLOOD ORDERABLES Antonina l Result Performing Organization Address [facility] Co de Phone Number [facility] Department [place] [employer] [place] [address] * (ABNORMAL) CBC with auto differential (06/26/2024 9:19 AM MINER HELPER) Pathologist [facility] WBC 3.7(L) 3.8 - 9.9 K/cumm Hgb 13.5 13.0 - 17.5 g/dL [facility] Hct 43.3 38.9 - 50.3 % [facility] Plt 337 150 - 400 K/cumm [facility] MPV 9.6 9.1 - 12.3 fL [facility] RBC 5.46 4.30 - 5.80 M/cumm [facility] MCV 79.3(L) 81.3 - 96.4 fL [facility] MCH 24.7(L) 27.1 - 33.3 pg [facility] MCHC 31.2(L) 32.3 - 35.7 g/dL [facility] RDW CV 16.4(H) 11.1 - 14.9 % [facility] RDW SD 46.3 35.7 - 48.1 fL [facility] NRBC abs 0.00 0.00 - 0.01 K/cumm [facility] Blood 06/26/2024 9:19 AM MINER HELPER 06/26/2024 9:52 AM MINER HELPER Chas Friedman MD LAB BLOOD ORDERABLES Antonina l Result Performing Organization Address City/[facility]/ZIP Co de Phone Number [facility] [place] [employer] [place] [address] * (ABNORMAL) Comprehensive metabolic panel (06/26/2024 9:19 AM MINER HELPER) Pathologist [facility] Sodium 138 135 - 145 mmol/L Potassium, pl 4.4 3.3 - 4.9 mmol/L [facility] Chloride 101 97 - 110 mmol/L [facility] CO2 31 22 - 32 mmol/L [facility] Anion gap 6 2 - 15 mmol/L [facility] BUN 10 6 - 25 mg/dL [facility] Creatinine 0.84 0.80 - 1.30 mg/dL [facility] Glucose 84 70 - 199 mg/dL [facility] Comment: Interpretive Data Fasting glucose >/= 126 mg/dl is diagnostic for diabetes. ?? Fasting is defined as no caloric intake for at least 8 hours. Fasting glucose between 100 mg/dl to 125 mg/dl is diagnostic of prediabetes. In a patient with classic symptoms of hyperglycemia or hyperglycemic crisis, a random glucose >/= 200 mg/dl is diagnostic for diabetes. In the absence of unequivocal hyperglycemia, results should be confirmed by repeat testing. The classification and Diagnosis of Diabetes Diabetes Care 2021; 46: S19-S40. Current interpretive data was last revised 2022. Calcium 9.6 8.5 - 10.3 mg/dL [facility] Bilirubin, total 0.3 0.1 - 1.2 mg/dL [facility] Protein, pl 9.0(H) 6.5 - 8.5 g/dL [facility] Albumin 4.6 3.5 - 5.0 g/dL [facility] Alk phos 80 40 - 130 Units/L [facility] ALT 39 7 - 55 Units/L [facility] AST 35 10 - 50 Units/L [facility] Blood 06/26/2024 9:19 AM MINER HELPER 06/26/2024 9:52 AM MINER HELPER us Chas Friedman MD LAB BLOOD ORDERABLES Antonina l Result [facility] [place] [address] * XR Chest PA Lateral 2 Views (06/26/2024 9:10 AM MINER HELPER) Anatomical Region Laterality Modality Body, Chest N/A Computed Radiogr aphy 06/26/2024 9:22 AM MINER HELPER Impressions 06/26/2024 9:35 AM MINER HELPER Comparison is made to 06/02/2024 x-ray. The lungs are normal in appearance without pleural effusion or pneumothorax. The cardiomediastinal silhouette is normal. Dictated by: Segundo Araiza M.D. (Ramanan) The radiology attending physician has personally reviewed this study, and had reviewed and/or edited this written report and agrees with it. Electronically signed by: Orly Miller M.D. Narrative 06/26/2024 9:35 AM MINER HELPER EXAMINATION: 2 view chest radiograph Procedure Note Orly Miller MD - 06/26/2024 EXAMINATION: 2 view chest radiograph IMPRESSION: Comparison is made to 06/02/2024 x-ray. The lungs are normal in appearance without pleural effusion or pneumothorax. The cardiomediastinal silhouette is normal. Dictated by: Segundo Araiza M.D. (Ramanan) The radiology attending physician has personally reviewed this study, and had reviewed and/or edited this written report and agrees with it. Electronically signed by: Orly Miller M.D. Chas Friedman MD IMG XR PROCEDURES Final R esult * Varicella Zoster Virus (VZV) PCR CSF (06/06/2024 11:53 AM MINER HELPER) [facility] VZV DNA Not Detected Not Detected [facility] Comment: Interpretative Data: Testing performed by [facility] ([phone]). This assay is performed using the [employer] Molecular Simplexa VZV Direct assay. This is a qualitative, real-time PCR assay for the detection of Varicella-zoster virus (VZV). This assay has been cleared by the U.S. Food and Drug Administration for performance on cerebrospinal fluid and lesion swabs. The performance characteristics have been verified by the [facility]. Results must be considered in the clinical context, and a negative result does not rule out infection. Interpretive data last revised 2021. CSF 06/06/2024 11:5 3 AM MINER HELPER 06/07/2024 7:18 AM MINER HELPER Rahel Miller MD LAB MICROBIOLOGY - GENERAL ORDERABLES Final Result JOE HAYWARD Rajesh [facility] [place] [address] [facility] * Herpes Simplex Virus (HSV) PCR CSF (06/06/2024 11:53 AM MINER HELPER) Pathologist [facility] HSV DNA Not Detected Not Detected [facility] Comment: Interpretive Data This assay is performed using primers specific for the DNA polymerase gene of both HSV-1 and HSV-2. ??The assay contains unique primer/probe sets capable of distinguishing between HSV-1 and HSV-2. ??This assay has been cleared by the U.S. Food and Drug Administration for performance on cerebrospinal fluid and genital swabs. ??The assay has been evaluated for use on alternative sample types, though it is not FDA cleared for these applications. ??The performance of all sample types has been validated by the performing laboratory and deemed acceptable for patient testing. Current Interpretive Data was last reviewed on 11/19/2018 CSF 06/06/2024 11:5 3 AM MINER HELPER 06/07/2024 7:18 AM MINER HELPER Result [facility] Rahel Miller MD LAB MICROBIOLOGY - GENERAL ORDERABLES Final Result Performing Organization Address City/[facility]/ZIP Co de Phone Number [facility]E [facility] Rajesh [facility] [place] [address] [facility] * Enterovirus PCR CSF (06/06/2024 11:53 AM MINER HELPER) Pathologist [facility] Enterovirus RNA, CSF Not Detected Not Detected [facility] Comment: Interpretive Data Testing performed by [facility] using the D[employer]enX[employer] Liaison MDX enterovirus assay. This assay detects RNA from enterovirus using Real Time PCR. This assay is laboratory developed and is not cleared by the [place] Food and Drug Administration. The performance characteristics have been verified by the [facility]. If negative results are obtained in patients less than two years of age with symptoms and laboratory findings consistent with enterovirus, testing for parechovirus may be appropriate. Current Interpretive Data was last revised on 2023. CSF 06/06/2024 11:5 3 AM MINER HELPER 06/06/2024 12:40 PM MINER HELPER Rahel Miller MD LAB MICROBIOLOGY - GENERAL ORDERABLES Final Result Performing Organization Address [facility] Co de Phone Number [facility] [place] [address] [facility] * Cell count w/reflex diff, CSF (06/06/2024 11:53 AM MINER HELPER) Tube Number, CSF Tube 1 Color, CSF Colorless Colorless [facility] Clarity, CSF Clear Clear [facility] Xanthochromia , CSF Absent Absent [facility] Nucleated cells, CSF 0 0 - 5 /cumm [facility] RBC, CSF 0 0 - 0 /cumm [facility] CSF 06/06/2024 11:5 3 AM MINER HELPER 06/06/2024 12:14 PM MINER HELPER Rahel Miller MD LAB BODY FLUIDS A ND STOOLS ORDERABLES Final Result Performing Organization Address [facility] de Phone Number [facility] [place] [address] * Mycology (fungal) culture and Cryptococcus antigen, CSF CSF (06/06/2024 11:53 AM MINER HELPER) Report Final Report: No growth of fungus CSF 06/06/2024 11:5 3 AM MINER HELPER 06/06/2024 12:19 PM MINER HELPER Narrative [facility] - 07/04/2024 7:33 AM MINER HELPER The Cryptococcal Antigen is resulted under a separate test. ??Please see ? Cryptococcal Antigen, CSF? for result. Testing performed by [facility] ([phone]). Rahel Miller MD LAB MICROBIOLOGY - GENERAL ORDERABLES Final Result Performing Organization Address [facility] [place] [address] * Cryptococcal antigen, CSF CSF (06/06/2024 11:53 AM MINER HELPER) Cryptococcal Antigen Negative Negative Comment: The cryptococcal antigen test was performed using the IMMY CrAg Lateral Flow Assay. This assay is FDA cleared for serum and CSF specimens and for the detection of Cryptococcus neoformans and Cryptococcus gattii. If the result is positive, the specimen will be titered and reported from less than 1:5 to greater than or equal to 1:2560. This assay does not distinguish between C. neoformans and C. gattii. Testing hemolyzed serum samples may lead to false negatives. Current interpretive data last revised 2018. CSF 06/06/2024 11:5 3 AM MINER HELPER 06/06/2024 12:19 PM MINER HELPER Rahel Miller MD LAB MICROBIOLOGY - GENERAL ORDERABLES Final Result Performing Organization Address [facility] [place] [address] * VDRL, CSF CSF (06/06/2024 11:53 AM MINER HELPER) VDRL CSF Negative Negative [place] Comment: Test Performed by: [facility] [address] [place] [address] Turn Supervisor: Asim Shukla Ph.D.; CLIA# [id number] CSF 06/06/2024 11:5 3 AM MINER HELPER 06/06/2024 12:12 PM MINER HELPER Rahel Miller MD LAB MICROBIOLOGY - GENERAL ORDERABLES Final Result Performing Organization Address City/[facility] Co de Phone Number [facility] [place] [address] [facility] * Protein, total, CSF (06/06/2024 11:53 AM MINER HELPER) Protein, CSF 28 5 - 45 mg/dL Comment:Reviewed CSF 06/06/2024 11:5 3 AM MINER HELPER 06/06/2024 12:14 PM MINER HELPER us Rahel Miller MD LAB BODY FLUIDS A ND STOOLS ORDERABLES Final Result Performing Organization Address City/[facility] Co de Phone Number [facility] [place] [address] * Glucose, CSF (06/06/2024 11:53 AM MINER HELPER) Glucose, CSF 66 mg/dL Comment: Reviewed Reference Interval Information: CSF Glucose should be 60-66% of the most current plasma glucose concentration (milligrams/deciliter) CLIN. CHEM. 41/3, 343-360 (1994), Clinical Utility of Biochemical Analysis of Cerebrospinal Fluid, Larry Bone and Vince Pearson. Current interpretive data was last revised on 2019. CSF 06/06/2024 11:5 3 AM MINER HELPER 06/06/2024 12:14 PM MINER HELPER us Rahel Miller MD LAB BODY FLUIDS A ND STOOLS ORDERABLES Final Result [facility] [place] [address] * AL DIAGNOSTIC LUMBAR SPINAL PUNCTURE (06/06/2024 11:46 AM MINER HELPER) Narrative Geo Palacios MD - 06/06/2024 11:46 AM MINER HELPER Germaine Torres MD ? 06/06/2024 11:57 AM Lumbar Puncture Date/Time: 06/06/2024 11:46 AM Performed by: Michelle Graham MD Authorized by: Geo Palacios MD ?? [facility] Protocol: RN Notified of Procedure: yes ?? 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 Consent form signed, dated, timed; matches correct patient, intended procedure and site: ??Yes Imaging: ??Pertinent imaging reviewed, correctly oriented and match to patient identifiers Lab/Diag test results: ??Pertinent lab/diag tests reviewed and match to patient identifiers Supplies, devices and special equipment are available: yes ?? Site/side marked: yes Immediately prior to the procedure a time out was called: a verbal verification by the procedure participants confirmed correct patient identity, correct site/side marked and visible (if applicable); agreement on procedure to be done; and correct patient positioning ?? Indications: ??Evaluation for infection Anesthesia (see MAR for exact dosage) Anesthesia method: ??Local infiltration Local anesthetic: ??Lidocaine 1% Patient prepararion: ??Gloves, mask and partial body drape Skin preparation: ??Skin prepped with povidone-iodine Lumbar space: ??L4-L5 interspace Patient's position: ??Left lateral decubitus Needle type: ??Spinal needle - Quincke tip Number of attempts: ??1 Opening pressure (cm H2O): ??18.5 Fluid appearance: ??Clear Tubes of fluid: ??5 Total volume (ml): ??25 Post-procedure: ??Adhesive bandage applied Patient tolerance: ??Patient tolerated the procedure well with no immediate complications Post Procedure Debrief: All guidewires, needles, sponges or other items are accounted for: yes ?? Any special post procedure monitoring, testing or other considerations: n/a ?? All specimens identified, labeled and matched to patient identification: yes ?? Responsible constitution party for transporting specimen(s) to lab determined: yes ?? us Goe Palacios MD IN CLINIC/BEDSIDE ORDERABL ES Final Result * CT Head WO Contrast (06/05/2024 5:52 PM MINER HELPER) Anatomical Region Laterality Modality Head and Neck N/A Computed Tomogra phy 06/06/2024 10:4 5 AM MINER HELPER Impressions 06/06/2024 3:08 PM MINER HELPER 1. ??No acute intracranial hemorrhage. 2. ??Brain atrophy out proportion for age, but unchanged from prior. 3. ??Partially visualized incidental borderline right cervical lymphadenopathy, which is nonspecific and similar to that seen on prior cervical spine CT from 04/28/2024. ??Recommend correlation with exam and consider neck CT for further evaluation. 4. ??Hypodensity in the right anterior temporal lobe immediately anterior to the mastoid air cells is most likely streak artifact, but cannot exclude small parenchymal lesion. Recommend brain MRI for further evaluation. Dictated by: Yee Oglesby M.D. The radiology attending physician has personally reviewed this study, and had reviewed and/or edited this written report and agrees with it. Electronically signed by: Maame Ruiz M.D. Narrative 06/06/2024 3:08 PM MINER HELPER EXAMINATION: CT head without contrast HISTORY: History of HIV, neck stiffness and blurry vision TECHNIQUE: CT of the head was performed with images acquired from skull base to vertex without intravenous contrast. COMPARISON: 04/28/2024 FINDINGS: Hypodensity in the right anterior temporal lobe immediately anterior to the mastoid air cells seen on series 2, image 21 is most likely streak artifact but cannot exclude small parenchymal lesion. Unchanged diffuse cerebral atrophy, out of proportion for age. Hypodensity around bilateral frontal horns. There is no acute intracranial hemorrhage. Ventricles are of normal size and morphology. No mass effect or midline shift is present. The hobbs-white matter differentiation is normal. The visualized portions of the orbits are normal. The visualized portions of the mastoids are normal. Unchanged bilateral maxillary sinus disease. No fractures are identified. Mildly enlarged right cervical lymph nodes. Procedure Note Maame Ruiz MD - 06/06/2024 EXAMINATION: CT head without contrast HISTORY: History of HIV, neck stiffness and blurry vision TECHNIQUE: CT of the head was performed with images acquired from skull base to vertex without intravenous contrast. COMPARISON: 04/28/2024 FINDINGS: Hypodensity in the right anterior temporal lobe immediately anterior to the mastoid air cells seen on series 2, image 21 is most likely streak artifact but cannot exclude small parenchymal lesion. Unchanged diffuse cerebral atrophy, out of proportion for age. Hypodensity around bilateral frontal horns. There is no acute intracranial hemorrhage. Ventricles are of normal size and morphology. No mass effect or midline shift is present. The hobbs-white matter differentiation is normal. The visualized portions of the orbits are normal. The visualized portions of the mastoids are normal. Unchanged bilateral maxillary sinus disease. No fractures are identified. Mildly enlarged right cervical lymph nodes. IMPRESSION: 1. No acute intracranial hemorrhage. 2. Brain atrophy out proportion for age, but unchanged from prior. 3. Partially visualized incidental borderline right cervical lymphadenopathy, which is nonspecific and similar to that seen on prior cervical spine CT from 04/28/2024. Recommend correlation with exam and consider neck CT for further evaluation. 4. Hypodensity in the right anterior temporal lobe immediately anterior to the mastoid air cells is most likely streak artifact, but cannot exclude small parenchymal lesion. Recommend brain MRI for further evaluation. Dictated by: Yee Oglesby M.D. The radiology attending physician has personally reviewed this study, and had reviewed and/or edited this written report and agrees with it. Electronically signed by: Maame Ruiz M.D. Rahel Miller MD IMG CT PROCEDURES Final Result * Lactate (06/04/2024 8:39 PM MINER HELPER) [facility] Lactate 1.8 0.7 - 2.0 mmol/L Blood 06/04/2024 8:39 PM MINER HELPER 06/04/2024 8:51 PM MINER HELPER Rahel Miller MD LAB BLOOD ORDERAB LES Final Result [facility] Department of Laboratories [place], [place] [id number] * Hepatitis C antibody Blood (06/04/2024 8:39 PM MINER HELPER) Pathologist [facility] Hep C Ab Nonreactive Nonreactive Comment:Antibodies to HCV no t detected. Does NOT exclude the possibility of recent exposure to HCV. Current interpretive data was last revised on 22 Blood 06/04/2024 8:39 PM MINER HELPER 06/04/2024 8:51 PM MINER HELPER Rahel Miller MD LAB MICRO BIOLOGY - GENERAL ORDERABLES Edited Result - Final Performing Organization Address [facility] Co de [place] [address] * (ABNORMAL) Cytomegalovirus (CMV) DNA PCR, quantitative Blood (06/04/2024 8:36 PM MINER HELPER) [facility] CMV DNA Detected( A) [facility] Comment: Interpretive Data: The quantifiable range of this assay is 34 IUnits/mL to 10,000,000 IUnits/mL (1.53 log IUnits/mL to 7.0 log IUnits/mL). Testing was performed by the NEERU [id number] CMV Test ([employer] Testing performed at [facility]. Current interpretive data was last revised on 2021. CMV DNA IU/mL 36 IUnits/mL [facility] CMV DNA log IU/mL 1.56 log IUnits/mL [facility] Blood 06/04/2024 8:36 PM MINER HELPER 06/04/2024 9:05 PM MINER HELPER Rahel Miller MD LAB MICROBIOLOGY - GENERAL ORDERABLES Final Result Performing Organization Address [facility] de Phone Number [place] [address] [facility] * eGFR (06/04/2024 8:36 PM MINER HELPER) [facility] eGFR >90 >=60 mL/min/1. 73 m2 Comment: Interpretive Data Reference Interval Normal ?>/= 90 mL/min/1.73m2 Mildly decreased* ? 60 - 89 mL/min/1.73m2 Mildly to moderately decreased ?45 - 59 mL/min/1.73m2 Moderately to severely decreased ??30 - 44 mL/min/1.73m2 Severely decreased ?15 - 29 mL/min/1.73m2 Kidney Failure ?< 15 ??mL/min/1.73m2 *Relative to young adult level Estimated glomerular filtration rate is determined by the 2020 CKD-EPI equation recommended by the National Kidney Foundation (A Unifying Approach to GFR Estimation: Recommendations of the NKF-ASK Task Force on Reassessing the Inclusion of Race in Diagnosing Kidney Disease, JASN 2020). The CKD-EPI equation should not be used for patients with unstable renal function and has not been validated in children and those over 70. Current interpretive data was last reviewed 2021. Blood 06/04/2024 8:36 PM MINER HELPER 06/04/2024 9:17 PM MINER HELPER us Rahel Miller MD LAB BLOOD ORDERAB LES Final Result [facility] [place] [address] * Differential, auto (06/04/2024 8:36 PM MINER HELPER) Pathologist [facility] Neutrophil abs 4.3 1.5 - 6.5 K/cumm Imm gran abs 0.0 0.0 - 0.1 K/cumm [facility] Lymphocyte abs 1.8 0.8 - 3.3 K/cumm [facility] Monocyte abs 0.4 0.2 - 0.8 K/cumm [facility] Eosinophil abs 0.0 0.0 - 0.5 K/cumm [facility] Basophil abs 0.0 0.0 - 0.1 K/cumm [facility] Neutrophil pct 65.9 % [facility] Comment: Interpretive Data Percent cell count reference ranges are not reported, since discordance with absolute values may lead to misinterpretation of CBC data. Current Interpretive Data was last revised on 2017. Imm gran pct 0.6 % [facility] Comment: Interpretive Data Percent cell count reference ranges are not reported, since discordance with absolute values may lead to misinterpretation of CBC data. Current Interpretive Data was last revised on 2017. Lymphocyte pct 27.4 % [facility] Comment: Interpretive Data Percent cell count reference ranges are not reported, since discordance with absolute values may lead to misinterpretation of CBC data. Current Interpretive Data was last revised on 2017. Monocyte pct 5.6 % [facility] Comment: Interpretive Data Percent cell count reference ranges are not reported, since discordance with absolute values may lead to misinterpretation of CBC data. Current Interpretive Data was last revised on 2017. Eosinophil pct 0.3 % [facility] Comment: Interpretive Data Percent cell count reference ranges are not reported, since discordance with absolute values may lead to misinterpretation of CBC data. Current Interpretive Data was last revised on 2017. Basophil pct 0.2 % [facility] Comment: Interpretive Data Percent cell count reference ranges are not reported, since discordance with absolute values may lead to misinterpretation of CBC data. Current Interpretive Data was last revised on 2017. Blood 06/04/2024 8:36 PM MINER HELPER 06/04/2024 8:58 PM MINER HELPER us Rahel Miller MD LAB BLOOD ORDERAB LES Final Result [facility] [place] [address] * (ABNORMAL) RPR Titer Blood (06/04/2024 8:36 PM MINER HELPER) RPR qn 1:32(A) Nonreactive Blood 06/04/2024 8:36 PM MINER HELPER 06/04/2024 8:52 PM MINER HELPER Rahel Miller MD LAB MICROBIOLOGY - GENERAL ORDERABLES Final Result Performing Organization Address [facility] Co de Phone Number [facility] Department [place] [address] * (ABNORMAL) CMV, IgG and IgM antibodies Blood (06/04/2024 8:36 PM MINER HELPER) [facility] CMV IgG Positive(A) Negative Comment: Interpretive Data Negative - Individuals with negative CMV IgG results are presumed to not have had prior exposure or infection with CMV and are, therefore, considered susceptible to primary infection. Equivocal - Equivocal results may occur during acute infection or may be due to nonspecific binding reactions. Submit an additional sample for testing if clinically indicated. Positive - Indicates presence of detectable CMV IgG antibody. Results indicate past or recent CMV infection. CMV IgM Negative Negative [facility] Comment: Interpretive Data Negative - Negative CMV IgM results suggests that the patient is not experiencing acute or active infection. However, a negative result does not rule-out primary CMV infection. Equivocal - Equivocal results may occur during acute infection or may be due to nonspecific binding reactions. Submit an additional sample for testing if clinically indicated. Positive - Positive CMV IgM results may indicate a recent infection (primary, reactivation, or reinfection). Blood 06/04/2024 8:36 PM MINER HELPER 06/04/2024 8:52 PM MINER HELPER Rahel Miller MD LAB MICROBIOLOGY - GENERAL ORDERABLES Final Result Performing Organization Address [facility] Co de Phone Number [facility] [place] [address] * (ABNORMAL) CBC with auto differential (06/04/2024 8:36 PM MINER HELPER) [facility] WBC 6.6 3.8 - 9.9 K/cumm Hgb 12.4(L) 13.0 - 17.5 g/dL [facility] Hct 39.1 38.9 - 50.3 % [facility] Plt 283 150 - 400 K/cumm [facility] MPV 9.8 9.1 - 12.3 fL [facility] RBC 4.90 4.30 - 5.80 M/cumm [facility] MCV 79.8(L) 81.3 - 96.4 fL [facility] MCH 25.3(L) 27.1 - 33.3 pg [facility] MCHC 31.7(L) 32.3 - 35.7 g/dL [facility] RDW CV 14.6 11.1 - 14.9 % [facility] RDW SD 42.7 35.7 - 48.1 fL [facility] NRBC abs 0.00 0.00 - 0.01 K/cumm [facility] Blood 06/04/2024 8:36 PM MINER HELPER 06/04/2024 8:58 PM MINER HELPER Rahel Miller MD LAB BLOOD ORDERAB LES Final Result Performing Organization Address [facility] de Phone Number [facility] [place] [address] * Cryptococcal Antigen, Serum Blood (06/04/2024 8:36 PM MINER HELPER) [facility] Cryptococcus ag, Serum Negative Negative Comment: The cryptococcal antigen test was performed using the IMMY CrAg Lateral Flow Assay. This assay is FDA cleared for serum and CSF specimens and for the detection of Cryptococcus neoformans and Cryptococcus gattii. If the result is positive, the specimen will be titered and reported from less than 1:5 to greater than or equal to 1:2560. This assay does not distinguish between C. neoformans and C. gattii. Testing hemolyzed serum samples may lead to false negatives. Current interpretive data last revised 2018. Blood 06/04/2024 8:36 PM MINER HELPER 06/04/2024 8:52 PM MINER HELPER us Rahel Miller MD LAB MICROBIOLOGY - GENERAL ORDERABLES Final Result Performing Organization Address [facility] de Phone Number [facility] Department [place] [address] * Hepatitis B core antibody, total Blood (06/04/2024 8:36 PM MINER HELPER) Hep B core IgG/IgM Nonreactive Nonreactive Blood 06/04/2024 8:36 PM MINER HELPER 06/04/2024 8:52 PM MINER HELPER us Rahel Miller MD LAB MICROBIOLOGY - GENERAL ORDERABLES Final Result Performing Organization Address [facility] Co de Phone Number [facility] [place] [address] * (ABNORMAL) RPR Blood (06/04/2024 8:36 PM MINER HELPER) Pathologist [facility] RPR Reactive(A ) Nonreactive Blood 06/04/2024 8:36 PM MINER HELPER 06/04/2024 8:52 PM MINER HELPER us Rahel Miller MD LAB MICROBIOLOGY - GENERAL ORDERABLES Final Result Performing Organization Address [facility] Co de Phone Number [facility] [place] [address] * Hepatitis B Surface Antigen Blood (06/04/2024 8:36 PM MINER HELPER) Pathologist [facility] HepBsAg Nonreactive Nonreactive Blood 06/04/2024 8:36 PM MINER HELPER 06/04/2024 8:52 PM MINER HELPER us Rahel Miller MD LAB MICROBIOLOGY - GENERAL ORDERABLES Final Result Performing Organization Address [facility] Co de Phone Number [facility] [place] [address] * Blood culture Blood (06/04/2024 8:36 PM MINER HELPER) Pathologist [facility] Report Final Report: No growth Blood 06/04/2024 8:36 PM MINER HELPER 06/04/2024 8:50 PM MINER HELPER Narrative JOE HAYWARD - 06/09/2024 7:00 AM MINER HELPER From a different site than #1. Collection->Peripheral 1. ?Blood cultures are incubated for 4 days on a continuously monitored blood culture system. The first report of a negative culture is issued within 24 hours of receipt of the specimen in the laboratory. 2. ?Positive culture results are reported as soon as they are detected. 3. ?The most important factor for detection of microbes in the setting of bloodstream infection is the volume of blood submitted for culture. Failure to collect an optimal blood volume can result in false negative blood cultures. For pediatric patients, the recommended blood volume to collect is 1 mL of blood per year of patient age (up to 20 mL) per blood culture set. For adult patients, 20 mL of blood, divided equally between aerobic and anaerobic blood culture bottles, is recommended for each blood culture set. 4. ?For blood cultures with Gram-positive cocci, a rapid molecular test for organism identification may be performed using the Confabbigene Gram-Positive Blood Culture Assay. This assay detects microbial DNA in positive blood culture broth via hybridization of target DNA to capture oligonucleotides on a microarray. This assay has been cleared by the [place] Food and Drug Administration and its performance characteristics have been verified by the [facility]. 5. ?For questions about this culture, contact the Microbiology Laboratory at [phone]. Interpretive data was last revised on 2019. Rahel Miller MD LAB MICROBIOLOGY - GENERAL ORDERABLES Final Result JOE HAYWARD [facility] [place] [address] * (ABNORMAL) Erythrocyte sedimentation rate (06/04/2024 8:36 PM MINER HELPER) Pathologist [facility] Erythrocyte sedimentation rate 22(H) 1 - 15 mm/hr Blood 06/04/2024 8:36 PM MINER HELPER 06/04/2024 8:58 PM MINER HELPER Rahel Miller MD LAB BLOOD ORDERAB LES Final Result [facility] [place] [address] * CRP (acute phase) (06/04/2024 8:36 PM MINER HELPER) [facility] CRP 9.8 <=10.0 mg/L Blood 06/04/2024 8:36 PM MINER HELPER 06/04/2024 8:46 PM MINER HELPER Rahel Miller MD LAB BLOOD ORDERAB LES Final Result Performing Organization Address [facility] Co de Phone Number [facility] [place] [address] * (ABNORMAL) Comprehensive metabolic panel (06/04/2024 8:36 PM MINER HELPER) [facility] Sodium 136 135 - 145 mmol/L Potassium, pl 3.7 3.3 - 4.9 mmol/L [facility] Chloride 104 97 - 110 mmol/L [facility] CO2 25 22 - 32 mmol/L [facility] Anion gap 7 2 - 15 mmol/L [facility] BUN 11 6 - 25 mg/dL [facility] Creatinine 1.10 0.80 - 1.30 mg/dL [facility] Glucose 94 70 - 199 mg/dL [facility] Comment: Interpretive Data Fasting glucose >/= 126 mg/dl is diagnostic for diabetes. ?? Fasting is defined as no caloric intake for at least 8 hours. Fasting glucose between 100 mg/dl to 125 mg/dl is diagnostic of prediabetes. In a patient with classic symptoms of hyperglycemia or hyperglycemic crisis, a random glucose >/= 200 mg/dl is diagnostic for diabetes. In the absence of unequivocal hyperglycemia, results should be confirmed by repeat testing. The classification and Diagnosis of Diabetes Diabetes Care 2021; 46: S19-S40. Current interpretive data was last revised 2022. Calcium 8.8 8.5 - 10.3 mg/dL [facility] Bilirubin, total 0.2 0.1 - 1.2 mg/dL [facility] Protein, pl 7.5 6.5 - 8.5 g/dL [facility] Albumin 3.4(L) 3.5 - 5.0 g/dL [facility] Alk phos 73 40 - 130 Units/L [facility] ALT 16 7 - 55 Units/L [facility] AST 21 10 - 50 Units/L [facility] Blood 06/04/2024 8:36 PM MINER HELPER 06/04/2024 8:46 PM MINER HELPER us Rahel Miller MD LAB BLOOD ORDERAB LES Final Result Performing Organization Address [facility]/ZIP Co de Phone Number [facility] [place] [address] * Lactate (06/04/2024 6:10 AM MINER HELPER) [facility] Lactate 2.0 0.7 - 2.0 mmol/L Blood 06/04/2024 6:10 AM MINER HELPER 06/04/2024 6:29 AM MINER HELPER us Olegario Gonsales MD LAB BLOOD ORDERABLES Fi nal Result Performing Organization Address [facility] Co de Phone Number [facility] [place] [address] * eGFR (06/04/2024 6:10 AM MINER HELPER) eGFR >90 >=60 mL/min/1. 73 m2 Comment: Interpretive Data Reference Interval Normal ?>/= 90 mL/min/1.73m2 Mildly decreased* ? 60 - 89 mL/min/1.73m2 Mildly to moderately decreased ?45 - 59 mL/min/1.73m2 Moderately to severely decreased ??30 - 44 mL/min/1.73m2 Severely decreased ?15 - 29 mL/min/1.73m2 Kidney Failure ?< 15 ??mL/min/1.73m2 *Relative to young adult level Estimated glomerular filtration rate is determined by the 2020 CKD-EPI equation recommended by the National Kidney Foundation (A Unifying Approach to GFR Estimation: Recommendations of the NKF-ASK Task Force on Reassessing the Inclusion of Race in Diagnosing Kidney Disease, JASN 2020). The CKD-EPI equation should not be used for patients with unstable renal function and has not been validated in children and those over 70. Current interpretive data was last reviewed 2021. Blood 06/04/2024 6:10 AM MINER HELPER 06/04/2024 6:37 AM MINER HELPER Olegario Gonsales MD LAB BLOOD ORDERABLES [facility] Result [facility] [place] [address] * Differential, auto (06/04/2024 6:10 AM MINER HELPER) Neutrophil abs 2.6 1.5 - 6.5 K/cumm Imm gran abs 0.0 0.0 - 0.1 K/cumm [facility] Lymphocyte abs 1.6 0.8 - 3.3 K/cumm [facility] Monocyte abs 0.3 0.2 - 0.8 K/cumm [facility] Eosinophil abs 0.1 0.0 - 0.5 K/cumm [facility] Basophil abs 0.0 0.0 - 0.1 K/cumm [facility] Neutrophil pct 56.0 % [facility] Comment: Interpretive Data Percent cell count reference ranges are not reported, since discordance with absolute values may lead to misinterpretation of CBC data. Current Interpretive Data was last revised on 2017. Imm gran pct 0.2 % [facility] Comment: Interpretive Data Percent cell count reference ranges are not reported, since discordance with absolute values may lead to misinterpretation of CBC data. Current Interpretive Data was last revised on 2017. Lymphocyte pct 35.4 % [facility] Comment: Interpretive Data Percent cell count reference ranges are not reported, since discordance with absolute values may lead to misinterpretation of CBC data. Current Interpretive Data was last revised on 2017. Monocyte pct 6.7 % [facility] Comment: Interpretive Data Percent cell count reference ranges are not reported, since discordance with absolute values may lead to misinterpretation of CBC data. Current Interpretive Data was last revised on 2017. Eosinophil pct 1.3 % [facility] Comment: Interpretive Data Percent cell count reference ranges are not reported, since discordance with absolute values may lead to misinterpretation of CBC data. Current Interpretive Data was last revised on 2017. Basophil pct 0.4 % [facility] Comment: Interpretive Data Percent cell count reference ranges are not reported, since discordance with absolute values may lead to misinterpretation of CBC data. Current Interpretive Data was last revised on 2017. Blood 06/04/2024 6:10 AM MINER HELPER 06/04/2024 6:29 AM MINER HELPER Olegario Gonsales MD LAB BLOOD ORDERABLES nal Result [facility] [place] [address] * (ABNORMAL) CBC with auto differential (06/04/2024 6:10 AM MINER HELPER) Pathologist [facility] WBC 4.6 3.8 - 9.9 K/cumm Hgb 12.9(L) 13.0 - 17.5 g/dL [facility] Hct 41.2 38.9 - 50.3 % [facility] Plt 292 150 - 400 K/cumm [facility] MPV 9.2 9.1 - 12.3 fL [facility] RBC 5.18 4.30 - 5.80 M/cumm [facility] MCV 79.5(L) 81.3 - 96.4 fL [facility] MCH 24.9(L) 27.1 - 33.3 pg [facility] MCHC 31.3(L) 32.3 - 35.7 g/dL [facility] RDW CV 14.9 11.1 - 14.9 % [facility] RDW SD 43.5 35.7 - 48.1 fL [facility] NRBC abs 0.00 0.00 - 0.01 K/cumm [facility] Blood 06/04/2024 6:10 AM MINER HELPER 06/04/2024 6:29 AM MINER HELPER us Olegario Gonsales MD LAB BLOOD ORDERABLES Fi nal Result [facility] [place] [address] * Comprehensive metabolic panel (06/04/2024 6:10 AM MINER HELPER) Sodium 138 135 - 145 mmol/L Potassium, pl 3.7 3.3 - 4.9 mmol/L [facility] Chloride 105 97 - 110 mmol/L [facility] CO2 24 22 - 32 mmol/L [facility] Anion gap 9 2 - 15 mmol/L [facility] BUN 8 6 - 25 mg/dL [facility] Creatinine 0.97 0.80 - 1.30 mg/dL [facility] Glucose 103 70 - 199 mg/dL [facility] Comment: Interpretive Data Fasting glucose >/= 126 mg/dl is diagnostic for diabetes. ?? Fasting is defined as no caloric intake for at least 8 hours. Fasting glucose between 100 mg/dl to 125 mg/dl is diagnostic of prediabetes. In a patient with classic symptoms of hyperglycemia or hyperglycemic crisis, a random glucose >/= 200 mg/dl is diagnostic for diabetes. In the absence of unequivocal hyperglycemia, results should be confirmed by repeat testing. The classification and Diagnosis of Diabetes Diabetes Care 2021; 46: S19-S40. Current interpretive data was last revised 2022. Calcium 8.7 8.5 - 10.3 mg/dL [facility] Bilirubin, total 0.2 0.1 - 1.2 mg/dL [facility] Protein, pl 7.5 6.5 - 8.5 g/dL [facility] Albumin 3.5 3.5 - 5.0 g/dL [facility] Alk phos 73 40 - 130 Units/L [facility] ALT 19 7 - 55 Units/L [facility] AST 17 10 - 50 Units/L [facility] Blood 06/04/2024 6:10 AM MINER HELPER 06/04/2024 6:37 AM MINER HELPER Olegario Gonsales MD LAB BLOOD ORDERABLES Fi nal Result Performing Organization Address City/[facility]/ZIP Co de Phone Number [facility] [place] [address] * POCT glucose (06/03/2024 5:26 AM MINER HELPER) Glucose, POC 77 70 - 199 mg/dL Blood 06/03/2024 5:26 AM MINER HELPER 06/03/2024 5:26 AM MINER HELPER Olegario Gonsales MD LAB POCT ORDERABLES - D EVICE Final Result Performing Organization Address [facility] Co de Phone Number [facility] [place] [address] * POCT ketone, blood (06/02/2024 7:46 PM MINER HELPER) Ketones, Blood, POC 0.1 0.0 - 0.5 mmol/L Blood 06/02/2024 7:46 PM MINER HELPER 06/02/2024 7:46 PM MINER HELPER Olegario Gonsales MD LAB POCT ORDERABLES - D EVICE Final Result Performing Organization Address [facility] Co de Phone Number [facility] [employer] [address] * Stool culture Stool Rectum (06/02/2024 7:17 PM MINER HELPER) Pathologist [facility] Direct Specimen Exam Shiga Toxin Testing: Antigen detection assay for Shiga-toxin NEGATIVE for Shiga Toxin 1 and Shiga Toxin 2. Report Final Report: No growth of enteric bacterial pathogens [facility] Stool (Rectum) 06/02/2024 7: 17 PM MINER HELPER 06/02/2024 7:23 PM MINER HELPER Narrative [facility] - 06/06/2024 8:35 AM MINER HELPER Specimen received in a sterile container. Testing performed by [facility] ([phone]). Routine stool cultures include procedures to detect Salmonella, Shigella, Edwardsiella, Aeromonas, Pleisiomonas, Campylobacter, Yersinia, E. coli O157, and Shiga-like toxins. ?? Vibrio is cultured only upon special request. ??If Vibrio is suspected, please call the laboratory at [phone]. Interpretive data was last updated November 27, 2016. Pooja Molina NP LAB MICROBIOLOGY - GENERA L ORDERABLES Final Result Performing Organization Address City/[facility]/ZIP Co de Phone Number [facility] [place] [address] * (ABNORMAL) Lactate (06/02/2024 5:22 PM MINER HELPER) [facility] Lactate 2.8(H) 0.7 - 2.0 mmol/L Blood 06/02/2024 5:22 PM MINER HELPER 06/02/2024 5:41 PM MINER HELPER Pooja Molina NP LAB BLOOD ORDERABLES Antonina l Result [facility] [place] [address] * eGFR (06/02/2024 5:22 PM MINER HELPER) [facility] eGFR >90 >=60 mL/min/1. 73 m2 Comment: Interpretive Data Reference Interval Normal ?>/= 90 mL/min/1.73m2 Mildly decreased* ? 60 - 89 mL/min/1.73m2 Mildly to moderately decreased ?45 - 59 mL/min/1.73m2 Moderately to severely decreased ??30 - 44 mL/min/1.73m2 Severely decreased ?15 - 29 mL/min/1.73m2 Kidney Failure ?< 15 ??mL/min/1.73m2 *Relative to young adult level Estimated glomerular filtration rate is determined by the 2020 CKD-EPI equation recommended by the National Kidney Foundation (A Unifying Approach to GFR Estimation: Recommendations of the NKF-ASK Task Force on Reassessing the Inclusion of Race in Diagnosing Kidney Disease, JASN 2020). The CKD-EPI equation should not be used for patients with unstable renal function and has not been validated in children and those over 70. Current interpretive data was last reviewed 2021. Blood 06/02/2024 5:22 PM MINER HELPER 06/02/2024 5:42 PM MINER HELPER Pooja Molina NP LAB BLOOD ORDERABLES Antonina l Result Performing Organization Address [facility] de Phone Number [facility] [place] [address] * Osmolality, blood (06/02/2024 5:22 PM MINER HELPER) Osmo 285 275 - 300 mOsm/kg Blood 06/02/2024 5:22 PM MINER HELPER 06/02/2024 5:42 PM MINER HELPER Pooja Molina NP LAB BLOOD ORDERABLES Antonina l Result Performing Organization Address [facility] de Phone Number [facility] [place] [address] * (ABNORMAL) Lipid panel (06/02/2024 5:22 PM MINER HELPER) [facility] Cholesterol 110 30 - 199 mg/dL Comment: Interpretive Data Ages < or = 19 years ??Acceptable: ? <170 mg/dL ??Borderline high: ??170-199 mg/dL ??High: ? >or= 200 mg/dL Ages > or = 20 years ??Desirable: ?<200 mg/dL ??Borderline high: ??200-239 mg/dL ??High: ? >or= 240 mg/dL Literature References: 1. Expert Panel on Integrated Guidelines for Cardiovascular Health and Risk Reduction in Children and Adolescents. Pediatrics 2011;128:S213 2. NCEP Expert Panel. Circulation 2004;110:227 Current Interpretive Data was last revised on 2018. Triglycerides 51 <=149 mg/dL [facility] Comment: Hemolyzed; result may be falsely elevated Interpretive Data Ages < or = 9 years ??Acceptable: ? <75 mg/dL ??Borderline high: ??75-99 mg/dL ??High: ? >or= 100 mg/dL Ages 10 to 20 years ??Acceptable: ? <90 mg/dL ??Borderline high: ??90-129 mg/dL ??High: ? >or= 130 mg/dL Ages > or = 20 years ??Desirable: ?<150 mg/dL ??Borderline high: ??150-199 mg/dL ??High: ? 200-499 mg/dL ?Very high: ?? >or= 499 mg/dL Literature References: 1. Expert Panel on Integrated Guidelines for Cardiovascular Health and Risk Reduction in Children and Adolescents. Pediatrics 2011;128:S213 2. NCEP Expert Panel. Circulation 2004;110:227 Current Interpretive Data was last revised on 2018. HDL 33(L) >=40 mg/dL [facility] Comment: Interpretive Data Ages < or = 19 years ??Acceptable: ? >45 mg/dL ??Borderline low: ?? 40-45 mg/dL ??Low: ? <40 mg/dL Ages > or = 20 years ??Desirable: ?>or= 60 mg/dL ??Low: ? <40 mg/dL Literature References: 1. Expert Panel on Integrated Guidelines for Cardiovascular Health and Risk Reduction in Children and Adolescents. Pediatrics 2011;128:S213 2. NCEP Expert Panel. Circulation 2004;110:227 Current Interpretive Data was last revised on 2018. LDL, calculated 65 <=129 mg/dL [facility] Comment: Interpretive Data Ages < or = 19 years ??Acceptable: ? <110 mg/dL ??Borderline high: ??110-129 mg/dL ??High: ?>or= 130 mg/dL Ages > or = 20 years ??Optimal: ? <100 mg/dL ??Near optimal: ?100-129 mg/dL ??Borderline high: ?? 130-159 mg/dL ??High: ?>160 mg/dL Calculated using the Landon LDL-C estimating equation. This equation was implemented on 2024. Prior to this date LDL-C was estimated using the Friedewald equation. Literature References: 1. Expert Panel on Integrated Guidelines for Cardiovascular Health and Risk Reduction in Children and Adolescents. Pediatrics 2011;128:S213 2. NCEP Expert Panel. Circulation 2004;110:227 3. Landon Sanders et al. PARESH Cardiol. 2020 November 20;5(5):540-548. doi: 10.1001/jamacardio.2020.0013 Current Interpretive Data was last revised on 2024. Non-HDL Cholesterol 77 mg/dL [facility] Comment: Interpretive Data Ages < or = 19 years ??Acceptable: ?<120 mg/dL ??Borderline high: ??120-144 mg/dL ??High: ?>145 mg/dL Ages > or = 20 years ??When triglycerides are >200 mg/dL, Non-HDL cholesterol is a secondary target of ? therapy with treatment goals that are 30 mg/dL greater than the LDL cholesterol target. ? Literature References: 1. Expert Panel on Integrated Guidelines for Cardiovascular Health and Risk Reduction in Children and Adolescents. Pediatrics 2011;128:S213 2. NCEP Expert Panel. Circulation 2004;110:227 Current Interpretive Data was last revised on 2018. Chol/HDL ratio 3 [facility] Blood 06/02/2024 5:22 PM MINER HELPER 06/02/2024 5:42 PM MINER HELPER us Olegario Gonsales MD LAB BLOOD ORDERABLES Fi nal Result [facility] [place] [address] * (ABNORMAL) Basic metabolic panel (06/02/2024 5:22 PM MINER HELPER) Sodium 138 135 - 145 mmol/L Potassium, pl See Comment 3.3 - 4.9 mmol/L [facility] Comment:Credited; Hemolyzed Specimen Chloride 107 97 - 110 mmol/L [facility] CO2 24 22 - 32 mmol/L [facility] Anion gap 7 2 - 15 mmol/L [facility] BUN 11 6 - 25 mg/dL [facility] Creatinine 0.76(L) 0.80 - 1.30 mg/dL [facility] Glucose 69(L) 70 - 199 mg/dL [facility] Comment: Interpretive Data Fasting glucose >/= 126 mg/dl is diagnostic for diabetes. ?? Fasting is defined as no caloric intake for at least 8 hours. Fasting glucose between 100 mg/dl to 125 mg/dl is diagnostic of prediabetes. In a patient with classic symptoms of hyperglycemia or hyperglycemic crisis, a random glucose >/= 200 mg/dl is diagnostic for diabetes. In the absence of unequivocal hyperglycemia, results should be confirmed by repeat testing. The classification and Diagnosis of Diabetes Diabetes Care 2021; 46: S19-S40. Current interpretive data was last revised 2022. Calcium 8.8 8.5 - 10.3 mg/dL [facility] Blood 06/02/2024 5:22 PM MINER HELPER 06/02/2024 5:42 PM MINER HELPER Pooja Molina NP LAB BLOOD ORDERABLES Antonina l Result Performing Organization Address [facility] de Phone Number [facility] [place] [address] * (ABNORMAL) Blood gas, venous (06/02/2024 3:44 PM MINER HELPER) pH, Venous 7.25(L) 7.32 - 7.43 PCO2, Venous 43 40 - 50 mmHg [facility] PO2, Venous 33 mmHg [facility] Comment: Interpretive Data No Reference Range Established Current Interpretive Data was last revised on 2017. HCO3 Venous, Calculated 20 20 - 30 mmol/L [facility] BE, venous -8 mmol/L [facility] Comment: Interpretive Data No Reference Range Established Current Interpretive Data was last revised on 2017. Blood 06/02/2024 3:44 PM MINER HELPER 06/02/2024 3:49 PM MINER HELPER us Pooja Molina NP LAB BLOOD ORDERABLES Antoinna l Result Performing Organization Address [facility] de Phone Number [facility] [place] [address] * POCT glucose (06/02/2024 3:25 PM MINER HELPER) Glucose, POC 106 70 - 199 mg/dL Blood 06/02/2024 3:25 PM MINER HELPER 06/02/2024 3:25 PM MINER HELPER Calvin Sainz MD LAB POCT ORDERABLES - DEVICE Final Result [facility] [place] [address] * ECG 12-LEAD (06/02/2024 3:03 PM MINER HELPER) Narrative [facility] - 06/02/2024 3:03 PM MINER HELPER Maris Kidd MD ? 06/02/2024 ??3:05 PM ECG 12 lead Date/Time: 06/02/2024 3:03 PM Performed by: Maris Kidd MD Authorized by: Maris Kidd MD ?? Rate: ??ECG rate: ??44 ??ECG rate assessment: bradycardic ?? Rhythm: ??Rhythm: sinus bradycardia ?? QRS: ??QRS axis: ??Normal Conduction: ??Conduction: abnormal ?? ST segments: ??ST segments: ??Non-specific T waves: ??T waves: non-specific ?? Other findings: ??Other findings: early repolarization ?? Previous ECG: ??Previous ECG: ??Compared to current ??Date of previous ECG: ??06/02/2024 ??Similarity: ??No change Interpretation: ??Interpretation: non-specific ?? Recommended Follow-up: ??Recommended follow up: further workup in the ED ?? Procedure Note Maris Kidd MD - 06/02/2024 3:03 PM CST Procedure ECG 12 lead Date/Time: 06/02/2024 3:03 PM Performed by: Maris Kidd MD Authorized by: Maris Kidd MD Rate: ECG rate: 44 ECG rate assessment: bradycardic Rhythm: Rhythm: sinus bradycardia QRS: QRS axis: Normal Conduction: Conduction: abnormal ST segments: ST segments: Non-specific T waves: T waves: non-specific Other findings: Other findings: early repolarization Previous ECG: Previous ECG: Compared to current Date of previous EC06/02/2024 Similarity: No change Interpretation: Interpretation: non-specific Recommended Follow-up: Recommended follow up: further workup in the ED Maris Kidd MD Resident 06/02/24 1508 us Maris Kidd MD ECG ORDERABLES Final Result [facility] * POCT glucose (06/02/2024 2:26 PM MINER HELPER) Glucose, POC 73 70 - 199 mg/dL Blood 06/02/2024 2:26 PM MINER HELPER 06/02/2024 2:26 PM MINER HELPER us Calvin Sainz MD LAB POCT ORDERABLES - DEVICE Final Result [facility] [place] [address] * (ABNORMAL) POCT glucose (06/02/2024 1:50 PM MINER HELPER) Glucose, POC 56(L) 70 - 199 mg/dL Blood 06/02/2024 1:50 PM MINER HELPER 06/02/2024 1:50 PM MINER HELPER us Calvin Sainz MD LAB POCT ORDERABLES - DEVICE Final Result Performing Organization Address [facility] Co de Phone Number [facility] [place] [address] * (ABNORMAL) POCT glucose (06/02/2024 1:13 PM MINER HELPER) Glucose, POC 45(C) 70 - 199 mg/dL Comment:Glu2: Glucose comment 1 Glu2: [facility] Blood 06/02/2024 1:13 PM MINER HELPER 06/02/2024 1:13 PM MINER HELPER us Jaci Menon MD LAB POCT ORDERABLES - DEVIC E Final Result [facility] [place] [address] * (ABNORMAL) Lactate (06/02/2024 12:29 PM MINER HELPER) Lactate 2.6(H) 0.7 - 2.0 mmol/L Blood 06/02/2024 12:2 9 PM MINER HELPER 06/02/2024 1:00 PM MINER HELPER Maris Kidd MD LAB BLOOD ORDERABLES Final Re sult Performing Organization Address City/[facility] Co de Phone Number [facility] [place] [address] * (ABNORMAL) Blood gas, venous (06/02/2024 12:29 PM MINER HELPER) Pathologist [facility] pH, Venous 7.25(L) 7.32 - 7.43 PCO2, Venous 58(H) 40 - 50 mmHg [facility] PO2, Venous 31 mmHg [facility] Comment: Interpretive Data No Reference Range Established Current Interpretive Data was last revised on 2017. HCO3 Venous, Calculated 26 20 - 30 mmol/L [facility] BE, venous -3 mmol/L [facility] Comment: Interpretive Data No Reference Range Established Current Interpretive Data was last revised on 2017. Blood 06/02/2024 12:2 9 PM MINER HELPER 06/02/2024 12:44 PM MINER HELPER Maris Kidd MD LAB BLOOD ORDERABLES Final Re sult Performing Organization Address City/State/[facility] Co de Phone Number [facility] [place] [address] * Troponin I high-sensitivity 2-hour (06/02/2024 11:13 AM MINER HELPER) Trop I hs <4 <=35 ng/L Comment: Interpretive Data For further hscTnI resources including the diagnostic algorithm and an aid in interpretation, copy and paste this link: [email or web address].[email or web address]/[email or web address] Current Interpretive Data last revised 2020. Trop I hs delta 0 ng/L [facility] Trop I hs interp Insignificant [facility] Blood 06/02/2024 11:1 3 AM MINER HELPER 06/02/2024 11:37 AM MINER HELPER Calvin Sainz MD LAB BLOOD ORDERABLES F inal Result Performing Organization Address [facility] Co de Phone Number [facility] [place] [address] * (ABNORMAL) Urinalysis reflex to microscopic and culture Urine (06/02/2024 10:28 AM MINER HELPER) Color, ur Straw Yellow Clarity, ur Clear Clear [facility] Specific gravity, ur 1.037(H) 1.003 - 1.030 [facility] pH, urine 6.0 [facility] Comment: Interpretive Data ? Urine pH is affected by diet, medications, systemic acid-base disturbances, and renal tubular function. ??pH may affect urinary stone formation. ??For example, urine pH below 6.0 may help reduce the tendency for calcium phosphate stones and pH greater than 6.0 may reduce the tendency for uric acid stone formation. Source: [facility] Current Interpretive Data was last revised on 2017 Protein, ur ql 1+(A) Negative [facility] Glucose, ur ql Negative Negative [facility] Ketones, ur Negative Negative [facility] Bilirubin, ur Negative Negative [facility] Blood, ur Negative Negative [facility] Urobilinogen, ur <2.0 <2.0 mg/dL [facility] Nitrite, ur Negative Negative [facility] Leukocyte esterase, ur Negative Negative [facility] UA reflex comment Reflex to microscopic UA will be performed. [facility] Urine 06/02/2024 10:2 8 AM MINER HELPER 06/02/2024 10:32 AM MINER HELPER Calvin Sainz MD LAB MICROBIOLOGY - GEN ERAL ORDERABLES Final Result Performing Organization Address [facility] Co de Phone Number [facility] [place] [address] * (ABNORMAL) Drugs of Abuse Screen, Urine without Confirmation (06/02/2024 10:28 AM MINER HELPER) Amphetamine, ur Screen Positive, presumptive (A) CutOff 500ng/mL Comment: Interpretive Data - Amphetamines: ??Samples containing greater than 500 ng/mL d-methamphetamine ??or other cross-reacting amphetamine compounds are reported as positive. ??Amphetamine immunoassays are subject to significant false positive rates due to cross-reactivity of non-amphetamine drugs. Confirmatory testing required for definitive results. Current Interpretive Data was last reviewed 2023. Barbiturates, ur Not Detected CutOff 200ng/mL [facility] Comment: Interpretive Data - Barbiturates: ??Samples containing greater than 200 ng/mL secobarbital or other cross-reacting barbiturate compounds are reported as positive. ??False positive and false negative results are possible. Confirmatory testing required for definitive results. Current Interpretive Data was last reviewed 2023. Benzodiazepines, ur Not Detected CutOff 100ng/mL [facility] Comment: Interpretive Data - Benzodiazepines: ??Samples containing greater than 100 ng/mL nordiazepam or other cross-reacting compounds are reported as positive. False positive and false negative results are possible. Confirmatory testing required for definitive results. Current Interpretive Data was last reviewed 2023. Cannabinoids, ur Not Detected CutOff 50 ng/mL [facility] Comment: Interpretive Data - Cannabinoids: ??Samples containing greater than 50 ng/mL delta-9 THC -COOH or other cross-reacting compounds are reported as positive. ??False positive and false negative results are possible. ??Confirmatory testing required for definitive results. Current Interpretive Data was last reviewed 2023. Cocaine, ur Screen Positive, presumptive (A) CutOff 150ng/mL [facility] Comment: Interpretive Data - Cocaine: ??Samples containing greater than 150 ng/mL benzoylecgonine or other cross-reacting compounds are reported as positive. False positive and false negative results are possible. Confirmatory testing required for definitive results. Current Interpretive Data was last reviewed 2023. Fentanyl, Ur Not Detected CutOff 5 ng/mL [facility] Comment: Interpretive Data - Fentanyl: ?? Samples containing greater than 5 ng/mL norfentanyl, fentanyl, or other cross-reacting fentanyl compounds are reported as positive. False positive and false negative results are possible. Confirmatory testing required for definitive results. Current Interpretive Data was last reviewed 2023. Methadone, ur Not Detected CutOff 300ng/mL [facility] Comment: Interpretive Data - Methadone: ??Samples containing greater than 300 ng/mL d,l-methadone or other cross-reacting compounds are reported as positive. ??False positive and false negative results are possible. Confirmatory testing required for definitive results. Current Interpretive Data was last reviewed 2023. Opiates, ur Not Detected CutOff 300ng/mL [facility] Comment: Interpretive Data - Opiates: ??Samples containing greater than 300 ng/mL morphine or other cross-reacting compounds are reported as positive. ??False positive and false negative results are possible. Confirmatory testing required for definitive results. Current Interpretive Data was last reviewed 2023. Oxycodone, ur Not Detected CutOff 100ng/mL [facility] Comment: Interpretive Data - Oxycodone: ??Samples containing greater than 100 ng/mL oxycodone or other cross-reacting compounds are reported as ??positive. ??False positive and false negative results are possible. Confirmatory testing required for definitive results. Current Interpretive Data was last reviewed 2023. Phencyclidine, ur Not Detected CutOff 25 ng/mL [facility] Comment: Interpretive Data - Phencyclidine: ??Samples containing greater than 25 ng/mL phencyclidine or other cross-reacting compounds are reported as positive. ??False positive and false negative results are possible. Confirmatory testing required for definitive results. Current Interpretive Data was last reviewed 2023. Urine Creatinine 243 mg/dL [facility] Comment: Interpretive Data Urine Creatinine: < 10 mg/dL is extremely dilute = or > 10 but < 20 mg/dL is dilute = or > 20 mg/dL is normal Current Interpretive Data was last revised on 2017. Urine 06/02/2024 10:2 8 AM MINER HELPER 06/02/2024 10:35 AM MINER HELPER Narrative [facility] - 06/02/2024 11:10 AM MINER HELPER Drug of Abuse screening is performed by immunoassay for medical purposes only. ??This is not to be used for Pain Management purposes. Calvin Sainz MD LAB URINE ORDERABLES F inal Result Performing Organization Address [facility] de Phone Number [facility] [place] [address] * (ABNORMAL) Urinalysis, microscopic only (06/02/2024 10:28 AM MINER HELPER) WBC, ur 0-5 0 - 5 /HPF RBC, ur 0-2 0 - 2 /HPF [facility] Epithelial cells, squamous, ur 1-5 0 - 5 /HPF [facility] Bacteria, ur Trace(A) [facility] Mucous, ur Present(A) [facility] Hyaline casts, ur 1-5 0 - 10 /LPF [facility] Culture Reflex Comment Reflex conditions for urine culture (WBC >10) not met. [facility] Urine 06/02/2024 10:2 8 AM MINER HELPER 06/02/2024 10:32 AM MINER HELPER Calvin Sainz MD LAB URINE ORDERABLES F inal Result Performing Organization Address [facility] [place] de Phone Number [facility] [place] [address] * XR Chest 1 Vw Portable (06/02/2024 10:22 AM MINER HELPER) Anatomical Region Laterality Modality Body, Chest N/A Computed Radiogr aphy 06/02/2024 10:3 7 AM MINER HELPER Impressions 06/02/2024 10:37 AM MINER HELPER Comparison is made to prior study of 04/28/2024. In the interval, no change. The lungs are clear. Specifically, no pulmonary edema or pneumonia. No pleural effusion or pneumothorax. Heart size and mediastinal contour are normal. Electronically signed by: Tanner Lees M.D. Narrative 06/02/2024 10:37 AM MINER HELPER EXAMINATION: 1 view chest radiograph Procedure Note Tanner Lees MD - 06/02/2024 EXAMINATION: 1 view chest radiograph IMPRESSION: Comparison is made to prior study of 04/28/2024. In the interval, no change. The lungs are clear. Specifically, no pulmonary edema or pneumonia. No pleural effusion or pneumothorax. Heart size and mediastinal contour are normal. Electronically signed by: Tanner Lees M.D. us Calvin Sainz MD IMG XR PROCEDURES Antonina l Result * ECG 12-LEAD (06/02/2024 9:37 AM MINER HELPER) Narrative [facility] - 06/02/2024 9:37 AM MINER HELPER Calvin Sainz MD ? 06/02/2024 ??9:37 AM ECG 12 lead Date/Time: 06/02/2024 9:37 AM Performed by: Calivn Sainz MD Authorized by: Calvin Sainz MD ?? Quality: ??Tracing quality: ??Limited by artifact Rate: ??ECG rate: ??51 ??ECG rate assessment: bradycardic ?? Rhythm: ??Rhythm: sinus bradycardia ?? Ectopy: ??Ectopy: none ?? QRS: ??QRS axis: ??Normal ??QRS intervals: ??Normal Conduction: ??Conduction: normal ?? ST segments: ??ST segments: ??Normal (Signs of early repolarization seen most notably in V2 through V6) Other findings: ??Other findings: early repolarization ?? Interpretation: ??Interpretation: non-specific ?? Recommended Follow-up: ??Recommended follow up: further workup in the ED ?? Comments: ?? Artifact limits this EKG but no obvious signs of acute occlusive pattern in this patient here with a benzodiazepine overdose. Procedure Note Calvin Sainz MD - 06/02/2024 9:37 AM CST Procedure ECG 12 lead Date/Time: 06/02/2024 9:37 AM Performed by: Calvin Sainz MD Authorized by: Calvin Sainz MD Quality: Tracing quality: Limited by artifact Rate: ECG rate: 51 ECG rate assessment: bradycardic Rhythm: Rhythm: sinus bradycardia Ectopy: Ectopy: none QRS: QRS axis: Normal QRS intervals: Normal Conduction: Conduction: normal ST segments: ST segments: Normal (Signs of early repolarization seen most notably inV2 through V6) Other findings: Other findings: early repolarization Interpretation: Interpretation: non-specific Recommended Follow-up: Recommended follow up: further workup in the ED Comments: Artifact limits this EKG but no obvious signs of acute occlusivepattern in this patient here with a benzodiazepine overdose. Calvin Sainz MD 06/02/24 0937 us Calvin Sainz MD ECG ORDERABLES Final Result Performing Organization Address [facility] Co de Phone Number [facility] * Troponin I high-sensitivity series (baseline, 2hr, 4hr, 6hr) (06/02/2024 9:35 AM MINER HELPER) Trop I hs <4 <=35 ng/L Comment: Interpretive Data For further hscTnI resources including the diagnostic algorithm and an aid in interpretation, copy and paste this link: https://bjhlab.testcatalog.org/show/[email or web address] Current Interpretive Data last revised 2020. Blood 06/02/2024 9:35 AM MINER HELPER 06/02/2024 9:53 AM MINER HELPER us Calvin Sainz MD LAB BLOOD ORDERABLES F inal Result Performing Organization Address [facility] Co de Phone Number [facility] [place] [address] * (ABNORMAL) Sepsis Lactate w/ Reflex (06/02/2024 9:35 AM MINER HELPER) Sepsis Lactate 2.3(H) 0.7 - 2.0 mmol/L Blood 06/02/2024 9:35 AM MINER HELPER 06/02/2024 9:43 AM MINER HELPER Calvin Sainz MD LAB BLOOD ORDERABLES F inal Result Performing Organization Address City/[facility]/ZIP Co de Phone Number [facility] [place] [address] * eGFR (06/02/2024 9:35 AM MINER HELPER) eGFR >90 >=60 mL/min/1. 73 m2 Comment: Interpretive Data Reference Interval Normal ?>/= 90 mL/min/1.73m2 Mildly decreased* ? 60 - 89 mL/min/1.73m2 Mildly to moderately decreased ?45 - 59 mL/min/1.73m2 Moderately to severely decreased ??30 - 44 mL/min/1.73m2 Severely decreased ?15 - 29 mL/min/1.73m2 Kidney Failure ?< 15 ??mL/min/1.73m2 *Relative to young adult level Estimated glomerular filtration rate is determined by the 2020 CKD-EPI equation recommended by the National Kidney Foundation (A Unifying Approach to GFR Estimation: Recommendations of the NKF-ASK Task Force on Reassessing the Inclusion of Race in Diagnosing Kidney Disease, JASN 2020). The CKD-EPI equation should not be used for patients with unstable renal function and has not been validated in children and those over 70. Current interpretive data was last reviewed 2021. Blood 06/02/2024 9:35 AM MINER HELPER 06/02/2024 9:53 AM MINER HELPER Calvin Sainz MD LAB BLOOD ORDERABLES F inal Result Performing Organization Address City/[facility]/ZIP Co de Phone Number [facility] [place] [address] * Thyroid Function Driscoll (06/02/2024 9:35 AM MINER HELPER) TSH 2.22 0.30 - 4.20 mcIUnit/mL Blood 06/02/2024 9:35 AM MINER HELPER 06/02/2024 9:53 AM MINER HELPER Calvin Sainz MD LAB BLOOD ORDERABLES F inal Result Performing Organization Address [facility]/ZIP Co de Phone Number [facility] [place] [address] * (ABNORMAL) CBC with auto differential (06/02/2024 9:35 AM MINER HELPER) [facility] WBC 3.9 3.8 - 9.9 K/cumm Hgb 14.7 13.0 - 17.5 g/dL [facility] Hct 47.6 38.9 - 50.3 % [facility] Plt 316 150 - 400 K/cumm [facility] MPV 9.3 9.1 - 12.3 fL [facility] RBC 5.85(H) 4.30 - 5.80 M/cumm [facility] MCV 81.4 81.3 - 96.4 fL [facility] MCH 25.1(L) 27.1 - 33.3 pg [facility] MCHC 30.9(L) 32.3 - 35.7 g/dL [facility] RDW CV 14.7 11.1 - 14.9 % [facility] RDW SD 43.7 35.7 - 48.1 fL [facility] NRBC abs 0.00 0.00 - 0.01 K/cumm [facility] Blood 06/02/2024 9:35 AM MINER HELPER 06/02/2024 9:53 AM MINER HELPER Calvin Sainz MD LAB BLOOD ORDERABLES F inal Result Performing Organization Address City/[facility]/ZIP Co de Phone Number [facility] [place] [address] * Manual Differential (06/02/2024 9:35 AM MINER HELPER) [facility] Differential Manual Cells Counted 115 [facility] Neutrophil abs 1.8 1.5 - 6.5 K/cumm [facility] Imm gran abs 0.0 0.0 - 0.1 K/cumm [facility] Lymphocyte abs 1.7 0.8 - 3.3 K/cumm [facility] Monocyte abs 0.2 0.2 - 0.8 K/cumm [facility] Eosinophil abs 0.1 0.0 - 0.5 K/cumm [facility] Neutrophil pct 47.0 % [facility] Comment: Interpretive Data Percent cell count reference ranges are not reported, since discordance with absolute values may lead to misinterpretation of CBC data. Current Interpretive Data was last revised on 2017. Lymphocyte pct 36.5 % [facility] Comment: Interpretive Data Percent cell count reference ranges are not reported, since discordance with absolute values may lead to misinterpretation of CBC data. Current Interpretive Data was last revised on 2017. Monocyte pct 5.2 % [facility] Comment: Interpretive Data Percent cell count reference ranges are not reported, since discordance with absolute values may lead to misinterpretation of CBC data. Current Interpretive Data was last revised on 2017. Eosinophil pct 3.5 % [facility] Comment: Interpretive Data Percent cell count reference ranges are not reported, since discordance with absolute values may lead to misinterpretation of CBC data. Current Interpretive Data was last revised on 2017. Variant lymph pct 7.8 % [facility] Blood 06/02/2024 9:35 AM MINER HELPER 06/02/2024 9:56 AM MINER HELPER us Calvin Sainz MD LAB BLOOD ORDERABLES F inal Result [facility] [place] [address] * (ABNORMAL) T-helper cells (CD4) count (06/02/2024 9:35 AM MINER HELPER) [facility] CD4 pct 10(L) 31 - 64 % CD4 Absolute 169(L) 365 - 1,294 cells/mcL [facility] Blood 06/02/2024 9:35 AM MINER HELPER 06/02/2024 9:56 AM MINER HELPER Calvin Sainz MD LAB BLOOD ORDERABLES F inal Result Performing Organization Address [facility] Co de Phone Number [facility] [place] [address] * aPTT (06/02/2024 9:35 AM MINER HELPER) aPTT 34 28 - 38 sec Comment: Interpretive Data Heparin therapeutic range: 66.0 - 100.0 seconds. Range based on correlation with therapeutic heparin activity range of 0.3 - 0.7 Units/mL. Current interpretive data was last revised on 2023. Blood 06/02/2024 9:35 AM MINER HELPER 06/02/2024 9:54 AM MINER HELPER Calvin Sainz MD LAB BLOOD ORDERABLES F inal Result Performing Organization Address [facility] de Phone Number [facility] [place] [address] * Protime-INR (06/02/2024 9:35 AM MINER HELPER) PT 11.2 9.7 - 13.0 sec INR 1.04 0.90 - 1.20 [facility] Comment: Interpretive data Oral anticoagulant therapeutic ranges: Venous thromboembolism prophylaxis or treatment: 2.0-3.0 CARDIOLOGY Standard range: 2.0-3.0 High-intensity range: 2.5-3.5 Refer to indication-specific guidelines for appropriate target ranges for prosthetic heart valve replacement. Current interpretive data was last revised on 2019. Blood 06/02/2024 9:35 AM MINER HELPER 06/02/2024 9:54 AM MINER HELPER Calvin Sainz MD LAB BLOOD ORDERABLES F inal Result Performing Organization Address [facility]/State/ZIP Co de Phone Number [facility] [place] [address] * (ABNORMAL) Blood gas, venous (06/02/2024 9:35 AM MINER HELPER) [facility] pH, Venous 7.22(L) 7.32 - 7.43 PCO2, Venous 61(H) 40 - 50 mmHg [facility] PO2, Venous 35 mmHg [facility] Comment: Interpretive Data No Reference Range Established Current Interpretive Data was last revised on 2017. HCO3 Venous, Calculated 26 20 - 30 mmol/L [facility] BE, venous -5 mmol/L [facility] Comment: Interpretive Data No Reference Range Established Current Interpretive Data was last revised on 2017. Blood 06/02/2024 9:35 AM MINER HELPER 06/02/2024 9:43 AM MINER HELPER us Calvin Sainz MD LAB BLOOD ORDERABLES F inal Result Performing Organization Address [facility] Co de Phone Number [facility] [place] [address] * (ABNORMAL) Creatine kinase (CK), total (06/02/2024 9:35 AM MINER HELPER) [facility] CK 361(H) 40 - 300 Units/L Blood 06/02/2024 9:35 AM MINER HELPER 06/02/2024 9:53 AM MINER HELPER us Jaci Menon MD LAB BLOOD ORDERABLES Final Result Performing Organization Address City/State/[facility] Co de Phone Number [facility] [place] [address] * Ethanol (06/02/2024 9:35 AM MINER HELPER) [facility] Ethanol <10 <=10 mg/dL Comment: Interpretive Data Legal limit of intoxication > or = 80 mg/dL Levels > or = 400 mg/dL are potentially TOXIC. Current interpretive data was last revised on 2018. Blood 06/02/2024 9:35 AM MINER HELPER 06/02/2024 9:53 AM MINER HELPER Calvin Sainz MD LAB BLOOD ORDERABLES F inal Result Performing Organization Address [facility] Co de Phone Number [facility] [place] [address] * Acetaminophen level (06/02/2024 9:35 AM MINER HELPER) Acetaminophen <5 <=5 mcg/mL Comment: Interpretive Data Significant hepatic injury may occur and treatment with n-acetyl cysteine is generally recommended if the acetaminophen level exceeds: 150 mcg/mL at 4 hours after ingestion ??75 mcg/mL at 8 hours after ingestion ??38 mcg/mL at 12 hours after ingestion ??19 mcg/mL at 16 hours after ingestion Consult toxicology or poison control ([phone]) for unknown ingestion time. Current interpretive data was last revised 2023. Blood 06/02/2024 9:35 AM MINER HELPER 06/02/2024 9:53 AM MINER HELPER Calvin Sainz MD LAB BLOOD ORDERABLES F inal Result Performing Organization Address [facility] de Phone Number [facility] [place] [address] * Salicylate level (06/02/2024 9:35 AM MINER HELPER) Salicylate <9.0 <=9.0 mg/dL Comment: Interpretive Data Toxic: 30 mg/dL or greater. Current interpretive data was last revised 2023. Blood 06/02/2024 9:35 AM MINER HELPER 06/02/2024 9:53 AM MINER HELPER Calvin Sainz MD LAB BLOOD ORDERABLES F inal Result Performing Organization Address [facility] [place] de Phone Number [facility] [place] [address] * (ABNORMAL) Hepatic function panel (06/02/2024 9:35 AM MINER HELPER) [facility] Bilirubin, total 0.2 0.1 - 1.2 mg/dL Bilirubin, direct <0.2 0.1 - 0.3 mg/dL [facility] Protein, pl 9.2(H) 6.5 - 8.5 g/dL [facility] Albumin 4.2 3.5 - 5.0 g/dL [facility] Alk phos 92 40 - 130 Units/L [facility] ALT 24 7 - 55 Units/L [facility] AST 43 10 - 50 Units/L [facility] Comment:Hemolyzed; result ma y be falsely elevated Blood 06/02/2024 9:35 AM MINER HELPER 06/02/2024 9:53 AM MINER HELPER Calvin Sainz MD LAB BLOOD ORDERABLES F inal Result [facility] [place] [address] * (ABNORMAL) Basic metabolic panel (06/02/2024 9:35 AM MINER HELPER) [facility] Sodium 139 135 - 145 mmol/L Potassium, pl 4.1 3.3 - 4.9 mmol/L [facility] Comment:Hemolyzed; Potassium value may be falsely elevated by as much as 0.3-0.5 mmol/L. Suggest redraw and reanalysis. Chloride 108 97 - 110 mmol/L [facility] CO2 24 22 - 32 mmol/L [facility] Anion gap 7 2 - 15 mmol/L [facility] BUN 14 6 - 25 mg/dL [facility] Creatinine 0.84 0.80 - 1.30 mg/dL [facility] Glucose 57(L) 70 - 199 mg/dL [facility] Comment: Interpretive Data Fasting glucose >/= 126 mg/dl is diagnostic for diabetes. ?? Fasting is defined as no caloric intake for at least 8 hours. Fasting glucose between 100 mg/dl to 125 mg/dl is diagnostic of prediabetes. In a patient with classic symptoms of hyperglycemia or hyperglycemic crisis, a random glucose >/= 200 mg/dl is diagnostic for diabetes. In the absence of unequivocal hyperglycemia, results should be confirmed by repeat testing. The classification and Diagnosis of Diabetes Diabetes Care 2021; 46: S19-S40. Current interpretive data was last revised 2022. Calcium 9.4 8.5 - 10.3 mg/dL [facility] Blood 06/02/2024 9:35 AM MINER HELPER 06/02/2024 9:53 AM MINER HELPER Calvin Sainz MD LAB BLOOD ORDERABLES F inal Result [facility] [place] [address] * AL CRITICAL CARE ILL/INJURED PATIENT INIT 30-74 MIN (06/02/2024 9:28 AM MINER HELPER) Narrative Calvin Sainz MD - 06/02/2024 9:28 AM MINER HELPER Calvin Sainz MD ? 06/02/2024 12:03 PM Critical Care Performed by: Calvin Sainz MD Authorized by: Calvin Sainz MD ?? Critical care provider statement: As reflected in the history, physical exam, orders, notes, and/or MDM, I was personally present while the patient was critically ill and provided critical care services for 30 minutes, excluding time involved in separately billable procedures. ??Critical care was necessary to treat or prevent imminent or life-threatening deterioration of the following condition(s): ?? unstable vital signs ? Bradycardia, respiratory acidosis, overdose ??Critical care was time spent by me providing the following: ? continuous telemetry, continuous pulse oximetry, continuous capnography, interpretation of bedside monitors, imaging, and arterial/venous lab draws and serial bedside patient exams ?? frequent neurologic exams ?Toxicology consultation ?? I provided emergent necessary critical care medicine services to this patient. I ordered and reviewed test results and/or imaging studies. I spent time discussing the management of this critically ill patient with consultants and the medical staff. I spent time discussing the management and therapeutic options for this critically ill patient with the patient themselves or with the appropriate designated surrogate decision-maker. I spent time documenting in the medical record. Calvin Sainz MD IN CLINIC/BEDSIDE RONNYDenise MELENDREZ Final Result * POCT glucose (05/10/2024 10:12 AM CDT) Glucose, POC 87 70 - 199 mg/dL Blood 05/10/2024 10:1 2 AM CDT 05/10/2024 10:12 AM CDT Benny Newell MD LAB POCT ORDERABLES - DE VICE Final Result Performing Organization Address [facility] Co de Phone Number [facility] Department [place] [address] * (ABNORMAL) POCT glucose (05/10/2024 9:24 AM CDT) Glucose, POC 55(L) 70 - 199 mg/dL Blood 05/10/2024 9:24 AM CDT 05/10/2024 9:24 AM CDT Benny Newell MD LAB POCT ORDERABLES - DE VICE Final Result Performing Organization Address [facility] Co in Phone Number [facility] Department [place] [place] [address] * XR Ankle Left 3 or More Views (05/10/2024 7:56 AM CDT) Anatomical Region Laterality Modality Lower Extremities, Ankle Left Compute d Radiography 05/10/2024 10:3 3 AM CDT Impressions 05/10/2024 11:42 AM CDT No acute fracture ??Osseus alignment appears normal on this nonweightbearing exam. Dictated by: Yee Oglesby M.D. The radiology attending physician has personally reviewed this study, and had reviewed and/or edited this written report and agrees with it. Electronically signed by: Brandy Graves M.D. Narrative 05/10/2024 11:42 AM CDT EXAMINATION: XR ANKLE LEFT 3 OR MORE VIEWS HISTORY: ??Left ankle pain, rolled ankle Procedure Note Brandy Graves MD - 05/10/2024 EXAMINATION: XR ANKLE LEFT 3 OR MORE VIEWS HISTORY: Left ankle pain, rolled ankle IMPRESSION: No acute fracture Osseus alignment appears normal on this nonweightbearing exam. Dictated by: Yee Oglesby M.D. The radiology attending physician has personally reviewed this study, and had reviewed and/or edited this written report and agrees with it. Electronically signed by: Brandy Graves M.D. Harley Subramanian MD IMG XR PROCEDURES Final Result * N. gonorrhoeae/C. trachomatis Amplification Urine (05/10/2024 7:13 AM CDT) Pathologist [facility] C. trachomatis Not Detected Not Detected [facility] N. gonorrhoeae Not Detected Not Detected [facility] Comment: Interpretive Data This assay detects Chlamydia trachomatis and Neisseria gonorrhoeae by nucleic acid amplification testing (NAAT). This assay has been cleared by the [place] Food and Drug administration. The performance characteristics of this test have been verified by the [facility] Infectious Disease laboratory. The performance characteristics of this test have not been evaluated in individuals less than 14 years of age. Current Interpretive Data last revised 2023. Urine (None) 05/10/2024 7:13 AM CDT 05/10/2024 7:38 AM CDT Benny Newell MD LAB MICROBIOLOGY - [facility] AL ORDERABLES Final Result [facility] Department [place] [address] [facility] * Trichomonas vaginalis PCR Urine (05/10/2024 7:13 AM CDT) Pathologist [facility] Trichomonas DNA Not Detected Not Detected [facility] Comment: Interpretive Data This assay detects Trichomonas vaginalis by nucleic acid amplification testing (NAAT). This assay has been cleared by the [place] Food and Drug administration. The performance characteristics of this test have been verified by the [facility] Infectious Disease laboratory. Excess blood in specimens may be inhibitory and result in false negative results. ??The performance of this test has not been evaluated in women or individuals less than 18 years of age. Current Interpretive Data last revised 2023. Urine 05/10/2024 7:13 AM CDT 05/10/2024 7:38 AM CDT Benny Newell MD LAB MICROBIOLOGY - GENER AL ORDERABLES Final Result Performing Organization Address [facility] de Phone Number [facility] [place] [address] [facility] * (ABNORMAL) T-helper cells (CD4) count (05/10/2024 7:13 AM CDT) [facility] CD4 pct 14(L) 31 - 64 % CD4 Absolute 149(L) 365 - 1,294 cells/mcL [facility] Blood 05/10/2024 7:13 AM CDT 05/10/2024 7:25 AM CDT Benny Newell MD LAB BLOOD ORDERABLES Fin al Result Performing Organization Address [facility] de Phone Number [facility] Department [place] [address] * eGFR (05/10/2024 7:10 AM CDT) [facility] eGFR >90 >=60 mL/min/1. 73 m2 Comment: Interpretive Data Reference Interval Normal ?>/= 90 mL/min/1.73m2 Mildly decreased* ? 60 - 89 mL/min/1.73m2 Mildly to moderately decreased ?45 - 59 mL/min/1.73m2 Moderately to severely decreased ??30 - 44 mL/min/1.73m2 Severely decreased ?15 - 29 mL/min/1.73m2 Kidney Failure ?< 15 ??mL/min/1.73m2 *Relative to young adult level Estimated glomerular filtration rate is determined by the 2020 CKD-EPI equation recommended by the National Kidney Foundation (A Unifying Approach to GFR Estimation: Recommendations of the NKF-ASK Task Force on Reassessing the Inclusion of Race in Diagnosing Kidney Disease, JASN 2020). The CKD-EPI equation should not be used for patients with unstable renal function and has not been validated in children and those over 70. Current interpretive data was last reviewed 2021. Blood 05/10/2024 7:10 AM CDT 05/10/2024 7:46 AM CDT us Harley Subramanian MD LAB BLOOD ORDERABLES Final Resul t [facility] [place] [address] * Differential, auto (05/10/2024 7:10 AM CDT) Pathologist [facility] Neutrophil abs 2.2 1.5 - 6.5 K/cumm Imm gran abs 0.0 0.0 - 0.1 K/cumm [facility] Lymphocyte abs 1.7 0.8 - 3.3 K/cumm [facility] Monocyte abs 0.4 0.2 - 0.8 K/cumm [facility] Eosinophil abs 0.1 0.0 - 0.5 K/cumm [facility] Basophil abs 0.0 0.0 - 0.1 K/cumm [facility] Neutrophil pct 49.4 % [facility] Comment: Interpretive Data Percent cell count reference ranges are not reported, since discordance with absolute values may lead to misinterpretation of CBC data. Current Interpretive Data was last revised on 2017. Imm gran pct 0.5 % [facility] Comment: Interpretive Data Percent cell count reference ranges are not reported, since discordance with absolute values may lead to misinterpretation of CBC data. Current Interpretive Data was last revised on 2017. Lymphocyte pct 37.8 % [facility] Comment: Interpretive Data Percent cell count reference ranges are not reported, since discordance with absolute values may lead to misinterpretation of CBC data. Current Interpretive Data was last revised on 2017. Monocyte pct 9.8 % [facility] Comment: Interpretive Data Percent cell count reference ranges are not reported, since discordance with absolute values may lead to misinterpretation of CBC data. Current Interpretive Data was last revised on 2017. Eosinophil pct 1.6 % [facility] Comment: Interpretive Data Percent cell count reference ranges are not reported, since discordance with absolute values may lead to misinterpretation of CBC data. Current Interpretive Data was last revised on 2017. Basophil pct 0.9 % [facility] Comment: Interpretive Data Percent cell count reference ranges are not reported, since discordance with absolute values may lead to misinterpretation of CBC data. Current Interpretive Data was last revised on 2017. Blood 05/10/2024 7:10 AM CDT 05/10/2024 7:25 AM CDT us Harley Subramanian MD LAB BLOOD ORDERABLES Final Resul t [facility] [place] [address] * Critical Result Callback Chemistry (05/10/2024 7:10 AM CDT) Date Notified [id number] Time Notified 905 JOE HAYWARD TestName glucose JOE IBRAHIM Called/Read Back AllAngelina HAYWARD Credentials RN JOE HAYWARD Called By MPW JOE HAYWARD Blood 05/10/2024 7:10 AM CDT 05/10/2024 7:46 AM CDT Harley Subramanian MD LAB BLOOD ORDERABLES Final Resul t Performing Organization Address City/[facility]/ZIP Co de Phone Number [facility] [place] [address] * Thyroid Function Driscoll (05/10/2024 7:10 AM CDT) TSH 2.03 0.30 - 4.20 mcIUnit/mL Blood 05/10/2024 7:10 AM CDT 05/10/2024 7:25 AM CDT Benny Newell MD LAB BLOOD ORDERABLES Fin al Result Performing Organization Address [facility] de Phone Number [facility] [place] [address] * (ABNORMAL) Urinalysis reflex to microscopic (05/10/2024 7:10 AM CDT) Color, ur Yellow Yellow Clarity, ur Clear Clear [facility] Specific gravity, ur 1.032(H) 1.003 - 1.030 [facility] pH, urine 6.5 [facility] Comment: Interpretive Data ? Urine pH is affected by diet, medications, systemic acid-base disturbances, and renal tubular function. ??pH may affect urinary stone formation. ??For example, urine pH below 6.0 may help reduce the tendency for calcium phosphate stones and pH greater than 6.0 may reduce the tendency for uric acid stone formation. Source: [facility] [employer] Current Interpretive Data was last revised on 2017 Protein, ur ql 2+(A) Negative [facility] Glucose, ur ql Negative Negative [facility] Ketones, ur Negative Negative [facility] Bilirubin, ur Negative Negative [facility] Blood, ur Negative Negative [facility] Urobilinogen, ur 4.0(A) <2.0 mg/dL [facility] Nitrite, ur Negative Negative [facility] Leukocyte esterase, ur Negative Negative [facility] UA reflex comment Reflex to microscopic UA will be performed. [facility] Urine 05/10/2024 7:10 AM CDT 05/10/2024 7:25 AM CDT Benny Newell MD LAB URINE ORDERABLES Fin al Result Performing Organization Address [facility] de Phone Number [facility] [place] [address] * (ABNORMAL) CBC with auto differential (05/10/2024 7:10 AM CDT) WBC 4.4 3.8 - 9.9 K/cumm Hgb 14.0 13.0 - 17.5 g/dL [facility] Hct 44.1 38.9 - 50.3 % [facility] Plt 616(H) 150 - 400 K/cumm [facility] MPV 8.9(L) 9.1 - 12.3 fL [facility] RBC 5.44 4.30 - 5.80 M/cumm [facility] MCV 81.1(L) 81.3 - 96.4 fL [facility] MCH 25.7(L) 27.1 - 33.3 pg [facility] MCHC 31.7(L) 32.3 - 35.7 g/dL [facility] RDW CV 15.2(H) 11.1 - 14.9 % [facility] RDW SD 44.6 35.7 - 48.1 fL [facility] NRBC abs 0.00 0.00 - 0.01 K/cumm [facility] Blood (Blood, Venous) 05/10/2024 7:10 AM CDT 05/10/2024 7:25 AM CDT Benny Newell MD LAB BLOOD ORDERABLES Fin al Result Performing Organization Address [facility] Co de Phone Number [facility] [place] [employer] [address] * (ABNORMAL) Drugs of Abuse Screen, Urine without Confirmation (05/10/2024 7:10 AM CDT) [facility] Amphetamine, ur Screen Positive, presumptive (A) CutOff 500ng/mL Comment: Interpretive Data - Amphetamines: ??Samples containing greater than 500 ng/mL d-methamphetamine ??or other cross-reacting amphetamine compounds are reported as positive. ??Amphetamine immunoassays are subject to significant false positive rates due to cross-reactivity of non-amphetamine drugs. Confirmatory testing required for definitive results. Current Interpretive Data was last reviewed 2023. Barbiturates, ur Not Detected CutOff 200ng/mL [facility] Comment: Interpretive Data - Barbiturates: ??Samples containing greater than 200 ng/mL secobarbital or other cross-reacting barbiturate compounds are reported as positive. ??False positive and false negative results are possible. Confirmatory testing required for definitive results. Current Interpretive Data was last reviewed 2023. Benzodiazepines, ur Screen Positive, presumptive (A) CutOff 100ng/mL [facility] Comment: Interpretive Data - Benzodiazepines: ??Samples containing greater than 100 ng/mL nordiazepam or other cross-reacting compounds are reported as positive. False positive and false negative results are possible. Confirmatory testing required for definitive results. Current Interpretive Data was last reviewed 2023. Cannabinoids, ur Not Detected CutOff 50 ng/mL [facility] Comment: Interpretive Data - Cannabinoids: ??Samples containing greater than 50 ng/mL delta-9 THC -COOH or other cross-reacting compounds are reported as positive. ??False positive and false negative results are possible. ??Confirmatory testing required for definitive results. Current Interpretive Data was last reviewed 2023. Cocaine, ur Not Detected CutOff 150ng/mL [facility] Comment: Interpretive Data - Cocaine: ??Samples containing greater than 150 ng/mL benzoylecgonine or other cross-reacting compounds are reported as positive. False positive and false negative results are possible. Confirmatory testing required for definitive results. Current Interpretive Data was last reviewed 2023. Fentanyl, Ur Not Detected CutOff 5 ng/mL [facility] Comment: Interpretive Data - Fentanyl: ?? Samples containing greater than 5 ng/mL norfentanyl, fentanyl, or other cross-reacting fentanyl compounds are reported as positive. False positive and false negative results are possible. Confirmatory testing required for definitive results. Current Interpretive Data was last reviewed 2023. Methadone, ur Not Detected CutOff 300ng/mL [facility] Comment: Interpretive Data - Methadone: ??Samples containing greater than 300 ng/mL d,l-methadone or other cross-reacting compounds are reported as positive. ??False positive and false negative results are possible. Confirmatory testing required for definitive results. Current Interpretive Data was last reviewed 2023. Opiates, ur Screen Positive, presumptive (A) CutOff 300ng/mL [facility] Comment: Interpretive Data - Opiates: ??Samples containing greater than 300 ng/mL morphine or other cross-reacting compounds are reported as positive. ??False positive and false negative results are possible. Confirmatory testing required for definitive results. Current Interpretive Data was last reviewed 2023. Oxycodone, ur Not Detected CutOff 100ng/mL [facility] Comment: Interpretive Data - Oxycodone: ??Samples containing greater than 100 ng/mL oxycodone or other cross-reacting compounds are reported as ??positive. ??False positive and false negative results are possible. Confirmatory testing required for definitive results. Current Interpretive Data was last reviewed 2023. Phencyclidine, ur Not Detected CutOff 25 ng/mL [facility] Comment: Interpretive Data - Phencyclidine: ??Samples containing greater than 25 ng/mL phencyclidine or other cross-reacting compounds are reported as positive. ??False positive and false negative results are possible. Confirmatory testing required for definitive results. Current Interpretive Data was last reviewed 2023. Urine Creatinine 267 mg/dL [facility] Comment: Interpretive Data Urine Creatinine: < 10 mg/dL is extremely dilute = or > 10 but < 20 mg/dL is dilute = or > 20 mg/dL is normal Current Interpretive Data was last revised on 2017. Urine 05/10/2024 7:10 AM CDT 05/10/2024 7:25 AM CDT Narrative [facility] - 05/10/2024 8:14 AM CDT Drug of Abuse screening is performed by immunoassay for medical purposes only. ??This is not to be used for Pain Management purposes. Benny Newell MD LAB URINE ORDERABLES Fin al Result Performing Organization Address [facility] [place] [address] * (ABNORMAL) Urinalysis, microscopic only (05/10/2024 7:10 AM CDT) Pathologist [facility] WBC, ur 0-5 0 - 5 /HPF RBC, ur 6-10(A) 0 - 2 /HPF [facility] Bacteria, ur Trace(A) [facility] Mucous, ur Present(A) [facility] Urine 05/10/2024 7:10 AM CDT 05/10/2024 7:25 AM CDT Harley Subramanian MD LAB URINE ORDERABLES Final Resul t Performing Organization Address [facility] [place] [address] * Ethanol (05/10/2024 7:10 AM CDT) Pathologist [facility] Ethanol <10 <=10 mg/dL Comment: Interpretive Data Legal limit of intoxication > or = 80 mg/dL Levels > or = 400 mg/dL are potentially TOXIC. Current interpretive data was last revised on 2018. Blood 05/10/2024 7:10 AM CDT 05/10/2024 7:25 AM CDT Benny Newell MD LAB BLOOD ORDERABLES Fin al Result Performing Organization Address [facility] [place] [address] * (ABNORMAL) Comprehensive metabolic panel (05/10/2024 7:10 AM CDT) Pathologist [facility] Sodium 141 135 - 145 mmol/L Potassium, pl 4.4 3.3 - 4.9 mmol/L [facility] Chloride 104 97 - 110 mmol/L [facility] CO2 28 22 - 32 mmol/L [facility] Anion gap 9 2 - 15 mmol/L [facility] BUN 20 6 - 25 mg/dL [facility] Creatinine 1.11 0.80 - 1.30 mg/dL [facility] Glucose 54(C) 70 - 199 mg/dL [facility] Comment: Glycolysis suspected; suggest sending a hobbs top tube. Interpretive Data Fasting glucose >/= 126 mg/dl is diagnostic for diabetes. ?? Fasting is defined as no caloric intake for at least 8 hours. Fasting glucose between 100 mg/dl to 125 mg/dl is diagnostic of prediabetes. In a patient with classic symptoms of hyperglycemia or hyperglycemic crisis, a random glucose >/= 200 mg/dl is diagnostic for diabetes. In the absence of unequivocal hyperglycemia, results should be confirmed by repeat testing. The classification and Diagnosis of Diabetes Diabetes Care 2021; 46: S19-S40. Current interpretive data was last revised 2022. Calcium 10.0 8.5 - 10.3 mg/dL [facility] Bilirubin, total 0.3 0.1 - 1.2 mg/dL [facility] Protein, pl 10.3(H) 6.5 - 8.5 g/dL [facility] Albumin 4.4 3.5 - 5.0 g/dL [facility] Alk phos 85 40 - 130 Units/L [facility] ALT 38 7 - 55 Units/L [facility] AST 42 10 - 50 Units/L [facility] Blood 05/10/2024 7:10 AM CDT 05/10/2024 7:25 AM CDT Zapata Michel Newell MD LAB BLOOD ORDERABLES Fin al Result [facility] [place] [address] * Hemoglobin A1c (08/01/2017 9:13 PM MINER HELPER) Hgb A1C 5.7 4.0 - 6.0 % [facility] Estimated Average Glucose 117 mg/dL [facility] Comment: The ADA recommends reporting an estimated Average Glucose (eAG) with all Hemoglobin A1c results using the equation derived from a study of 507 normal and diabetic adults. ??Minority populations were underrepresented and children were not included. ?? (Diabetes Care 31:2886-9185, 2008). ??The eAG is not equivalent to a fasting glucose. Blood specimen (specimen) 08/01/2017 9:13 PM MINER HELPER 08/01/2017 9:25 PM MINER HELPER Narrative [facility] - 08/03/2017 7:23 AM MINER HELPER Padmini Lambert NP LAB BLOOD ORDERABLES Final Result Performing Organization Address City/State/[facility] Co de Phone Number [facility] [place] [address] from Last 3 Months or Most Recently Relevant to Health [place] [address] [place] [address] [place] [employer] [facility] [address] [place] [address] Advance Directives For more information, please contact: [phone] * Full Code (Latest Code Status on File) Date Activated Date Inactivated Comments 07/04/2024 5:44 PM 07/08/2024 4:32 PM * Full Code Date Activated Date Inactivated Comments 06/03/2024 5:45 PM 06/07/2024 5:08 PM * Full Code Date Activated Date Inactivated Comments 04/04/2024 5:12 PM 04/10/2024 6:24 PM * Full Code Date Activated Date Inactivated Comments 03/03/2024 4:05 AM 03/03/2024 8:14 PM * Full Code Date Activated Date Inactivated Comments 02/24/2024 3:50 AM 02/27/2024 5:24 PM Care Teams Instruction Assistant Principal Relationship Specialty Start Date End Date Mady Sullivan MD [address] [facility] [address] [place] [address] PCP - General Infectious Diseases 10/12/23 No, Physician 10/12/23
--- OUTSIDE RECORDS SUMMARY | 2024-08-10 03:32 | XMS_ITS | Encounter Summary ---
Author Organization [facility] Address [address] [place] [address] Phone Care Team Providers Care Service Mechanic Name Role Phone Mady Sullivan MD Primary Care Provider No, Physician Unavailable Encounter Details Date Type Department Care Team (Late st Contact Info) Description 07/03/2024 Telephone [facility] Ophthalmology [address] [place] [address] [address] [place] [address] Candida Grullon MD [address] [facility] [address] [place] [address] Social History Tobacco Use Types Packs/Day Years Used Date Smoking Tobacco: Former Cigarettes Passive Smoke Exposure: Current Smokeless Tobacco: Never [facility] Utilities Answer Date Recorded In the past [address] [facility] EMBI, gas, oil, or water [employer] threatened to shut off services in your [...] declined 07/08/2024 How often do you attend anabaptist or zoroastrianism serv ices? Patient declined 07/08/2024 Do you belong to any clubs o r organizations such as anabaptist groups, unions, fraternal or athletic groups, or [...] Date Recorded PHQ-2 Total Score 4 04/07/2024 [facility] - Occupational Stress Questionnaire Answer [...] place to sleep or slept in a [place] facility (including now)? No 10/15/2023 Housing Stability Vital [...] any time in the past 12 [facility], were you homeless or living in a [place] facility (including now)? Patient declined 07/08/2024 Personal Safety Answer Date Recorded Have you ever been in or are you currently in a harmful physical or emotional relationship or is someone making you feel afraid or unsafe? Denies 07/08/2024 Education Answer Date Recorded What is the highest level of school you have completed or the highest degree you have received? Bachelor's degree (e.g., BA, AB, BS) 02/24/2024 Sex and Gender Information Value Date Recorded Sex Assigned at Not on file Legal Sex Male 11:02 PM PROJECT LEADER Gender Identity Not on file Sexual Orientation Not on file Occupation Industry Job Start Date Job End Date unemployed Not on file Not on file Not on file documented as of this encounter Functional Status * Are you deaf or do you have serious difficulty hearing? Answer Date of Assessment Author No 02/24/2024 10:18 AM Manda Mcintyre, PUBLIC HEALTH DIRECTOR * Are you blind or do you have serious difficulty seeing, even when wearing glasses? Answer Date of Assessment Author No 02/24/2024 10:18 AM Manda Mcintyre, PUBLIC HEALTH DIRECTOR * Do you have serious difficulty walking or climbing stairs? Answer Date of Assessment Author No 02/24/2024 10:18 AM CDManda Ibrahim, PUBLIC HEALTH DIRECTOR * Do you have serious difficulty dressing or bathing? Answer Date of Assessment Author No 02/24/2024 10:18 AM CDManda Ibrahim, PUBLIC HEALTH DIRECTOR * Because of a physical, mental, or emotional condition, do you have serious difficulty doing errandsalone such as visiting the doctor? Answer Date of Assessment Author No 02/24/2024 10:18 AM Madna Mcintyre, PUBLIC HEALTH DIRECTOR documented as of this encounter Mental Status * Because of a physical, mental, or emotional condition, do you have serious difficulty concentrating, remembering, or making decisions? (5 years old or older) Answer Entry Date Author No 02/24/2024 10:18 AM Manda Mcintyre MSW documented in this encounter Miscellaneous Notes * Telephone Encounter - Светлана Giang - 07/08/2024 10:57 AM CST Called Pt , number busy ECT LEADER * Telephone Encounter - Candida Grullon MD - 07/03/2024 8:52 AM PROJECT LEADER Please schedule patient in [facility] in 3-4 weeks for DFEx and OCT Mac ECT LEADER documented in this encounter Plan of Treatment Not on file documented as of this encounter Visit Diagnoses Not on filedocumented in this encounter Additional Health Concerns Infection Onset Date Last Indicated Resolved Time Ring Surveillance Comment:C.auris Ring Surveillance Flag is placed and removed manually by IP. However, if the patient is discharged before their swab is collected, it will remain on a patient's chart for 7 days after discharge in case the patient is re-admitted elsewhere. Pt is undergoing Ring Surveillance for admission to [address] [facility] 07/05/2024 07/05/2024 07/09/2024 10:55 AM PROJECT LEADER C. difficile suspected 07/07/2024 07/07/202407/09 3:05 AM PROJECT LEADER documented as of this encounter Care Teams Service Mechanic Relationship Specialty Start Date End Date Mady Sullivan MD [address] [address] PCP - General Infectious Diseases 10/12/23 No, Physician 10/12/23 documented as of this encounter
--- OUTSIDE RECORDS SUMMARY | 2024-08-10 03:32 | XMS_ITS | Encounter Summary ---
Author Organization [facility] Healthcare Address [address] [place] [address] Care Team Providers Care Rehabilitation Services Director Name Role Phone Mady Sullivan MD Primary Care Provider No, Physician Unavailable Reason for Visit * Reason Comments Unsuccessful Phone Call 2 Encounter Details Date Type Department Care Team (Late st Contact Info) Description 07/10/2024 SHOP/CHAP Initial Outreach [facility] OP CASE MANAGEMENT [address] [place] [id number] Amira Javed, [facility] [address] [facility] ([facility] Mailstop [phone] [place] [address] Social History Tobacco Use Types Packs/Day Years Used Date Smoking Tobacco: Former Cigarettes Passive Smoke Exposure: Current Smokeless Tobacco: Never [facility] Utilities Answer Date Recorded In the past 12 months has [facility] [email or web address], gas, oil, or water [employer] threatened to shut off services in your [...] declined 07/08/2024 How often do you attend zoroastrianism or yarsanism serv ices? Patient declined 07/08/2024 Do you belong to any clubs o r organizations such as zoroastrianism groups, unions, fraternal or athletic groups, or [...] Date Recorded PHQ-2 Total Score 4 04/07/2024 [facility] - Occupational Stress Questionnaire Answer [...] place to sleep or slept in a jail (including now)? No 10/15/2023 Housing Stability Vital [...] any time in the past 12 m [facility], were you homeless or living in a jail (including now)? Patient declined 07/08/2024 Personal Safety [...] on file Legal Sex Male 11:02 PM [employer] Gender Identity Not on file Sexual Orientation Not on file Occupation Industry Job Start Date Job End Date unemployed Not on file Not on file Not on file documented as of this encounter Functional Status * Are you deaf or do you have serious difficulty hearing? Answer Date of Assessment Author No 02/24/2024 10:18 AM Manda Mcintyre, PRINCIPAL CLERK * Are you blind or do you have serious difficulty seeing, even when wearing glasses? Answer Date of Assessment Author No 02/24/2024 10:18 AM TAYOJose Lashawn Mandakrissy Basurto PRINCIPAL CLERK * Do you have serious difficulty walking or climbing stairs? Answer Date of Assessment Author No 02/24/2024 10:18 AM LAURO Hardin Mandakrissy Basurto PRINCIPAL CLERK * Do you have serious difficulty dressing or bathing? Answer Date of Assessment Author No 02/24/2024 10:18 AM LAURO Hardin Mandakrissy Basurto PRINCIPAL CLERK * Because of a physical, mental, or emotional condition, do you have serious difficulty doing errandsalone such as visiting the doctor? Answer Date of Assessment Author No 02/24/2024 10:18 AM TAYOJose HardinManda PRINCIPAL CLERK documented as of this encounter Mental Status * Because of a physical, mental, or emotional condition, do you have serious difficulty concentrating, remembering, or making decisions? (5 years old or older) Answer Entry Date Author No 02/24/2024 10:18 AM LAURO Hardin Mandakrissy Basurto PRINCIPAL CLERK documented in this encounter Plan of Treatment Not on file documented as of this encounter Visit Diagnoses Not on filedocumented in this encounter Care Teams Rehabilitation Services Director Relationship Specialty Start Date End Date Mady Sullivan MD [address] [address] PCP - General Infectious Diseases 10/12/23 No, Physician 10/12/23 documented as of this encounter
--- OUTSIDE RECORDS SUMMARY | 2024-08-10 03:32 | XMS_ITS | Encounter Summary ---
Author Organization [facility] Healthcare Address [address] [place] [address] Care Team Providers Care Optometrist Assistant Name Role Phone Mady Sullivan MD Primary Care Provider No, Physician Unavailable Reason for Referral * Consultation (Routine) - Pending Review Specialty Diagnoses / Procedures Referred By Ara t Referred To Contact Neurology Diagnoses Abnormal involuntary movements Karen Barrientos MD [address] [facility] [address] [place] [address] Phone: tel: fax: [facility] [address] [place] [address] 4th [address] [place] [address] Phone: tel: fax: Referral ID Status Reason Start Date Expiration Date Visits Requested Visits Authorized [id number] Pending Review Specialty Services Required 08/03/2025 1 1 Question Answer Please select the performing region: [facility] [[id number]] Please select the performing department: [facility] [[id number]] # of visits: 1 Comments To be scheduled as return visit with Dr. Dominguez. F/u concerning abnormal movements, blurred vision. [place] Reason for Visit * Reason Comments Flank Pain * Auth/Cert (Routine) Specialty Diagnoses / Procedures Referred By Contac t Referred To Contact Diagnoses Pyelonephritis Abnormal involuntary movements Procedures na Referral ID Status Reason Start Date Expiration Date Visits Re quested Visits Authorized [id number] 1 1 Encounter Details Date Type Department Care Team (Late st Contact Info) Description 07/04/2024 8:14 AM [employer] - 07/08/2024 1:47 PM [employer] Hospital Encounter [facility] [address] [place] [address] Karen Barrientos MD [address] [place] [address] Reji Melara MD [address] [place] [address] Federico Kelley MD [address] [place] [address] Cari Steven MD [address] [place] [address] Abnormal involuntary movements (Primary Dx); Pyelonephritis Discharge Disposition: Discharge to home or self care Social History Tobacco Use Types Packs/Day Years Used Date Smoking Tobacco: Former Cigarettes Passive Smoke Exposure: Current Smokeless Tobacco: Never [facility] Answer Date Recorded In the past 12 months has [facility] [employer] [employer], gas, oil, or water [employer] threatened to shut off services in your [...] declined 07/08/2024 How often do you attend restorationism or congregational serv ices? Patient declined 07/08/2024 Do you belong to any clubs o r organizations such as restorationism groups, unions, fraternal or athletic groups, or [...] Total Score 4 04/07/2024 [facility] - Occupational Stress Questionnaire Answer Date [...] or slept in a usp (including now)? No 10/15/2023 Housing Stability Vital [...] any time in the past 12 m [facility], were you homeless or living in a usp (including now)? Patient declined 07/08/2024 Personal Safety [...] on file Legal Sex Male 11:02 PM [employer] Gender Identity Not on file Sexual Orientation Not on file Occupation Industry Job Start Date Job End Date unemployed Not on file Not on file Not on file documented as of this encounter Last Filed Vital Signs Vital Sign Reading Time Taken Comments Blood Pressure 139/65 07/08/2024 8:03 AM [employer] Pulse 69 07/08/2024 8:03 AM [employer] Temperature 36.5 ??C (97.7 ??F) 07/08/2024 8:03 AM CS T Respiratory Rate 18 07/08/2024 8:03 AM [employer] Oxygen Saturation 98% 07/08/2024 8:03 AM [employer] Inhaled Oxygen Concentration - - Weight 68.7 kg (151 lb 8 oz) 07/04/2024 10:15 PM [employer] Height 182.9 cm (6' 0.01 ) 07/04/2024 10:[address] Body Mass Index 20.54 07/04/2024 10:15 PM [employer] documented in this encounter Functional Status * Are you deaf or do you have serious difficulty hearing? Answer Date of Assessment Author No 02/24/2024 10:18 AM CDT Hardin, Manda Sherine, BEAUTY CULTURIST APPRENTICE * Are you blind or do you have serious difficulty seeing, even when wearing glasses? Answer Date of Assessment Author No 02/24/2024 10:18 AM CDT Hardin, Manda Sherine, BEAUTY CULTURIST APPRENTICE * Do you have serious difficulty walking or climbing stairs? Answer Date of Assessment Author No 02/24/2024 10:18 AM CDT Hardin Manda Sherine, BEAUTY CULTURIST APPRENTICE * Do you have serious difficulty dressing or bathing? Answer Date of Assessment Author No 02/24/2024 10:18 AM CDT Hardin, Manda Sherine, BEAUTY CULTURIST APPRENTICE * Because of a physical, mental, or emotional condition, do you have serious difficulty doing errandsalone such as visiting the doctor? Answer Date of Assessment Author No 02/24/2024 10:18 AM CDT Hardin Manda Sherine, BEAUTY CULTURIST APPRENTICE documented as of this encounter Mental Status * Because of a physical, mental, or emotional condition, do you have serious difficulty concentrating, remembering, or making decisions? (5 years old or older) Answer Entry Date Author No 02/24/2024 10:18 AM CDT Hardin Manda Sherine, BEAUTY CULTURIST APPRENTICE documented in this encounter Discharge Summaries * Sindy Black MD - 07/08/2024 1:47 PM CST Inpatient Discharge Summary BRIEF OVERVIEW Admitting Provider: Karen Barrientos MD Discharge Provider: No att. providers found Primary Care Physician at Discharge: Mady Sullivan MD [phone] Admission Date: 07/04/2024 Discharge Date: 07/08/2024 Admission Location: [facility] Problems/Diagnoses: Principal Problem: Pyelonephritis Active Problems: Severe malnutrition (CMS/HCC) Resolved Problems: No resolved hospital problems. DETAILS OF HOSPITAL STAY Presenting Problem/History of Present Illness: Patient is a 28 y/o M with PMHx of TIA, borderline personality disorder, HIV (reports not taking medications for 3 weeks), methamphetamine use, transverse myelitis, and neurosyphilis who presents to the ED complaining of L-sided flank pain with associated dysuria. He has had these symptoms for the past three days but have acutely worsened in the past day. Patient was also seen yesterday for his neurologic sx especially worsening blurry vision for which he was worked up as a code stroke and seenby ophthalmology and neurology who recommended obtain MRI brain with orbits, however, patient left AMA due to family emergency. His neurologic sx have remained the same at this time. He also notes nausea, vomiting, subjective fever, and chills. He denies any recent substance use. He denies any SOB,CP, penile discharge, sore throat, hematochezia, or any other sx at this time. Hospital Course: #Bilateral pyelonephritis #GN and GP bacteremia Patient presented 07/04 with 3 days of dysuria and urinary frequency. UA with >50 WBC, 3+ LE, +nitrites. CT A/P showed bilateral (L > R) pyelonephritis; renal ultrasound with possible developing abscess. IR was consulted for possible drainage, however it was determined that there was no fluidto drain. 07/04: 1/2 BCx grew E. Coli and another 1/2 BCx grew gram postive cocci in clusters, possi rosa elena staph (later speciated to Staph haemolyticus). 07/04 UCx grew E Coli. 07/05 BCx NGTD. Patient initially got a dose of ceftriaxone and was then transitioned to cefepime and vancomycin (given hx ofIVDU and possible staph in 1/2 BCx). Patient later transitioned back to ceftriaxone. Vancomycin wasdiscontinued as Staph haemolyticus was likely contaminant. Patient received 5 days of IV abx beforehe was transitioned to oral Bactrim (160mg trimethoprim) BID. Patient was discharged on Bactrim BIDto complete a 14 day total course of abx. #Diarrhea Patient states he developed diarrhea 07/06 and had ~6 loose BM. Possibly 2/2 abx vs withdrawals. Given recent antibiotics, can consider C diff, but lower concern given patient was afebrile and WBC remained within normal limits. Daily psyllium started. 07/08 patient reported that diarrhea improved. #HIV with hx poor adherence to ART CD4 count 132 this admit. HIV RNA 103,000 copies. Follows at [facility]. Hepatitis panel, G/C/Trich negative. During admission, Biktarvy and Bactrim for PJP prophylaxis continued. Patient was discharged with instructions to take Bactrim (160mg trimethoprim) BID for 9 days to complete therapeutic abx course as above and then resume Sunday, Sunday, Sunday prophylactic dosing. #MAURI #Meth withdrawals Infectious screening as above. Per patient, uses meth regularly every weekend, and last used a weekago, thinks he is withdrawing a bit. Has mild tremors and yawning. UDS +amphetamines. Also states that he drinks 6 shots/day but last drink was a week ago. Received atarax PRN during admission. #R superior vision defect On admission, reported new decreased vision in superior quadrant of R eye. Presented to ED for samethe previous day. Evaluated by neurology with some c/f CRAO or structural abnormality given hx of neurosyphilis. Eval by ophthalmology during this admission who felt subjective complaints did not correlate to objective exam findings but patient poorly participating in exam d/t intoxication. Notably, ophtho exam from 06/15 without evidence of ocular syphilis. bMRI s/f sequela of HIV encephalopathy, similar to prior imaging. Orbital sequences with artifact, radiology recommended repeating. RepeatMRI orbit showed possible early left optic neuropathy. Patient to follow up outpatient with ophthalmology. #Depression with intermittent suicidal ideation #Hx of malingering He has 20+ visits for SI in the past year, has been evaluated multiple times in the past by psychiatry and found to have chronic low-level SI without benefit from hospitalization. Recently hospitalized 05/2024 for reported benzo overdose (ingested 27 2mg tabs xanax) however UDS was negative, psychiatry at that time consulted: Overall, this patient is at chronic high risk of harm to self and others due to non-modifiable risk factors, and he does not have acute risk factors that can be modified by an inpatient psych admission. He has been admitted to psych multiples times without clear benefit; noted known pattern of repeated, manipulative attempts to remain hospitalized in order to obtain usp. Unclear what patient's psych regimen should be at this time. Per patient, he stopped taking psych meds due to SI 2 weeks ago, open to re- starting. Patient should follow-up with psychiatry outpatient. #Hx neurosyphilis: Chart history of diagnosis 2017 and 2023, most recently treated with 14 days IV penicillin (09/2023). Syphilis serologies remain persistently elevated. RPR titer this admit stable from prior at 1:32. LP 06/15 with bland serologies. #RLE weakness #Chronic peripheral neuropathy Evaluated by Neuro during ED presentation, most likely chronic due to similar complaints on prior presentations. Active Issues Requiring Follow-up: - Follow up ophthalmology - Follow up psychiatry Test Results Pending at Discharge: Pending Labs Order Current Status C. difficile testing Stool Collected (07/08/24 1123) Drugs of Abuse Screen, Urine with Reflex Confirmation In process HIV-1 Genotypic Drug Resistance Blood In process Blood culture Blood Preliminary result Blood culture Blood Preliminary result Blood culture Blood Preliminary result Blood culture Blood Preliminary result Blood culture Blood Preliminary result Operative Procedures Performed: N/A Other Procedures: N/A Pertinent Test Results: Lab Results Component Value Date WBC 4.9 07/07/2024 HGB 10.4 (L) 07/07/2024 HCT 33.1 (L) 07/07/2024 MCV 76.6 (L) 07/07/2024 LABPLAT 559 (H) 07/07/2024 Lab Results Component Value Date GLUCOSE 110 07/07/2024 CALCIUM 8.7 07/07/2024 SODIUM 141 07/07/2024 POTASSIUM 4.5 07/07/2024 CO2 27 07/07/2024 CHLORIDE 106 07/07/2024 BUNSER 11 07/07/2024 CREATININE 1.00 07/07/2024 Discharge Details Physical Exam at Discharge: Discharge Condition: stable Pulse: 69 Resp: 18 BP: 139/65 Temp: 36.5 ??C (97.7 ??F) Weight: 68.7 kg (151 lb 8 oz) Pertinent Exam Findings at Discharge: Constitutional: Lying on his side, chills noted HEENT:. Normal conjunctiva, no scleral icterus, EOMI. Neck: Supple, no jugular venous distension present Cardio: Normal rate, regular rhythm. No murmurs or extra heart sounds. Pulm/Chest: Normal respiratory effort and breath sounds. No wheezes or rales. Abd: Soft, mildly tender in all four quadrants. Normoactive bowel sounds. MSK/Extremities: No obvious deformities. No lower extremity edema. Neuro: AAO to person, place, and time; moving all extremities spontaneously. Skin: Skin is warm and dry. Psych: Mood and affect normal. Discharge Disposition: Discharge to home or self care Code Status at Discharge: Full Code Discharge Instructions: You were admitted to the hospital for the diagnosis and treatment of bilateral kidney infections (pyelonephritis) and a bloodstream infection. Please see a summary of your discharge instructions below. For bilateral kidney infections (pyelonephritis) and bloodstream infection: On admission, you were found to have an infection in both of your kidneys and bacteria in your blood. This was treated with 5 days of IV antibiotics and you were then transitioned to an oral antibiotic that will continue for a total treatment course of 14 days. The oral antibiotic is called sulfamethoxazole- trimethoprim (BACTRIM), which is the same antibiotic that you take for prophylaxis for HIV. However, you should take the Bactrim TWICE DAILY for 9 days for the treatment of the bacterial infection. After the 9 day course is completed, you may resume your normal Sunday, Sunday, Sunday dosing. Medication instructions: - [START] sulfamethoxazole-trimethoprim (BACTRIM) 800-160mg twice daily for 9 days, then resume Sunday, Sunday, Sunday dosing For HIV: During admission, your HIV medications were continued. Medication instructions: - [CONTINUE] pegdtchwwoj-zvalvcvolptjb-rwetncmzr (BIKTARVY) 1 tablet daily - [CONTINUE] Bactrim prophylactic dosing Sunday, Sunday, Sunday AFTER completed the higher dosing frequency for 9 days as described above For vision changes: Your vision changes were evaluated by ophthalmology (eye specialists) while you were in the hospital. It was determined that there was no emergent concern that needed to be addressed while you were admitted. The ophthalmologists will follow up with you outpatient. The ophthalmology clinic will callyou to schedule an appointment. If you don't hear from them by next week, you can reach them at [phone] to schedule an appointment. Walt return to the hospital if you develop new fevers or chills, worsening abdominal or back pain,pain with urination, or if you have any concerns. Please see your AVS for a summary of your medications. Discharge Medications: Current Medications TAKE these medications ARIPiprazole 10 mg tablet Take 1 tablet (10 mg total) by mouth daily for 15 days For: additional treatment for major depressive disorder Commonly known as: ABILIFKorina Notes to patient: Mood stabilizer Side effects: headache, tiredness, weight gain jofconwlygx-kgvsxqpmvwdzv-furkmpyxz 50-200-25 mg tablet Take 1 tablet by mouth daily Commonly known as: BIKTARVY Notes to patient: Antiviral, treat HIV infection Side effects: diarrhea, nausea, headache DULoxetine DR 60 mg capsule Take 1 capsule (60 mg total) by mouth daily for 15 days Commonly known as: CYMBALTA Notes to patient: Antianxiety, antidepressant, pain management Side effects: sweating, weight loss, abdominal pain, constipation, nausea, dry mouth gabapentin 100 mg capsule Take 1 capsule (100 mg total) by mouth 3 (three) times a day Commonly known as: NEURONTIN Notes to patient: Neuropathy/nerve pain management Side Effects: fatigue, dizziness, nausea hydrOXYzine 50 mg tablet Take 1 tablet (50 mg total) by mouth every 6 (six) hours as needed for anxiety for up to 15 days Commonly known as: ATARAX Notes to patient: Antianxiety Side effects: cough, dizziness, low heart rate loperamide 2 mg capsule Take 1 capsule (2 mg total) by mouth as needed for diarrhea Commonly known as: IMODIUM Notes to patient: treat diarrhea Side effects: constipation, abdominal pain, nausea, dizziness sulfamethoxazole-trimethoprim 800-160 mg per tablet Take 1 tablet (160 mg of trimethoprim total) by mouth 2 (two) times a day for 9 days, THEN 1 tablet (160 mg of trimethoprim total) 3 (three) times a week. For: Pneumocystis/Toxoplasmosis Prophylaxis Commonly known as: BACTRIM DS Start taking on: July 08, 2024 Notes to patient: Antibiotic, treats or prevents bacterial infections Side effects: sunburn easily, low blood sugar, diarrhea, dizziness, purple patches on skin *Take the entire course/dose of the antibiotic, even if you are feeling better* traZODone 50 mg tablet Take 1 tablet (50 mg total) by mouth nightly as needed for sleep Commonly known as: ENRIQUE Notes to patient: Sleep aid, antidepressant Side effects: fainting, low blood pressure, dizziness, weight change, nausea, constipation, diarrhea Outpatient Follow-Up: Cosigned by Cari Steven MD at 07/09/2024 5:07 PM [employer] [place] [employer] [place] [employer] documented in this encounter Discharge Instructions * Discharge Instructions* Lana Ferreira RN - 07/07/2024 2:41 PM [employer] You were admitted to the hospital for the diagnosis and treatment of bilateral kidney infections (pyelonephritis) and a bloodstream infection. Please see a summary of your discharge instructions below. For bilateral kidney infections (pyelonephritis) and bloodstream infection: On admission, you were found to have an infection in both of your kidneys and bacteria in your blood. This was treated with 5 days of IV antibiotics and you were then transitioned to an oral antibiotic that will continue for a total treatment course of 14 days. The oral antibiotic is called sulfamethoxazole- trimethoprim (BACTRIM), which is the same antibiotic that you take for prophylaxis for HIV. However, you should take the Bactrim TWICE DAILY for 9 days for the treatment of the bacterial infection. After the 9 day course is completed, you may resume your normal Sunday, Sunday, Sunday dosing. Medication instructions: - [START] sulfamethoxazole-trimethoprim (BACTRIM) 800-160mg twice daily for 9 days, then resume Sunday, Sunday, Sunday dosing For HIV: During admission, your HIV medications were continued. Medication instructions: - [CONTINUE] yuxailaqxky-xblcsgtuxerwe-llbjwnkie (BIKTARVY) 1 tablet daily - [CONTINUE] Bactrim prophylactic dosing Sunday, Sunday, Sunday AFTER completed the higher dosing frequency for 9 days as described above For vision changes: Your vision changes were evaluated by ophthalmology (eye specialists) while you were in the hospital. It was determined that there was no emergent concern that needed to be addressed while you were admitted. The ophthalmologists will follow up with you outpatient. The ophthalmology clinic will callyou to schedule an appointment. If you don't hear from them by next week, you can reach them at [phone] to schedule an appointment. Walt return to the hospital if you develop new fevers or chills, worsening abdominal or back pain,pain with urination, or if you have any concerns. Please see your AVS for a summary of your medications. [employer] [place] [employer] [place] [employer] * Attachments The following attachments cannot be sent through Care Everywhere. * Kidney Infection (Discharge Care) (Prydeinig) documented in this encounter Medications at Time of Discharge bictegravir-emtri citabine-tenofovi r (BIKTARVY) 50-200-25 mg tablet Take 1 tablet by mouth daily 30 tablet 3 06/07/2024 gabapentin (NEURONTIN) 100 mg capsule Take 1 capsule (100 mg total) by mouth 3 (three) times a day 60 capsule 06/27/2024 loperamide (IMODIUM) 2 mg capsule Take 1 capsule (2 mg total) by mouth as needed for diarrhea 60 capsule 06/07/2024 sulfamethoxazole- trimethoprim (BACTRIM DS) 800-160 mg per tabletIndications :Pneumocystis/Tox oplasmosis Prophylaxis Take 1 tablet (160 mg of trimethoprim total) by mouth 2 (two) times a day for 9 days, THEN 1 tablet (160 mg of trimethoprim total) 3 (three) times a week. 54 tablet 07/08/2024 5 traZODone (DESYREL) 50 mg tablet Take 1 tablet (50 mg total) by mouth nightly as needed for sleep 07/08/2024 5 documented as of this encounter Ordered Prescriptions Prescription Sig Dispense Quantity Refills Last Filled Start Date End Date traZODone (DESYREL) 50 mg tablet Take 1 tablet (50 mg total) by mouth nightly as needed for sleep 07/08/2024 sulfamethoxazole- trimethoprim (BACTRIM DS) 800-160 mg per tabletIndications :Pneumocystis/Tox oplasmosis Prophylaxis Take 1 tablet (160 mg of trimethoprim total) by mouth 2 (two) times a day for 9 days, THEN 1 tablet (160 mg of trimethoprim total) 3 (three) times a week. 54 tablet 07/08/2024 5 documented in this encounter Discharge Disposition Disposition Code Departure Means Destination Comment s Discharge to home or self care documented in this encounter Progress Notes * Sindy Black MD - 07/08/2024 1:13 PM CST MEDICINE DAILY PROGRESS NOTE Date of Admission: 07/04/2024 Date of Service: 07/08/24 CARE TEAM Patient: Phil Chase Room: [id number] Service: Medical Primary Care Physician: Mady Sullivan MD Subjective BRIEF HPI Phil Chase is a 28 y.o. male with PMH significant for HIV (not taking ART therapy 2/2 depression), hx TIAs, MAURI (amphetamine), hx neurosyphillis, transverse myelitis, peripheral neuropathy, borderline personality disorder, and malingering who presented with L. Side flank pain + associated dysuria for the past three days along with right leg weakness/numbness and vision changes. INTERVAL HISTORY - NAEON. VSS. - Patient reports doing well this AM, states diarrhea is improving. Abdominal pain improving. Objective VITALS / I&Os Patient Vital Signs for the past 24 hrs: BP MAP (mmHg) Temp Temp src Pulse Resp SpO2 07/08/24 0803 139/65 82 36.5 ??C (97.7 ??F) Oral 69 18 98 % 07/08/24 0800 -- -- -- -- -- 18 -- 07/08/24 0444 125/90 96 36.7 ??C (98.1 ??F) -- 74 -- 100 % 07/08/24 0400 112/55 68 36.9 ??C (98.4 ??F) Oral 58 18 100 % 07/08/24 0100 113/61 73 36.9 ??C (98.4 ??F) Oral 74 18 -- 07/07/24 2047 101/51 61 36.5 ??C (97.7 ??F) Oral 79 18 -- 07/07/24 1545 134/67 83 36.8 ??C (98.2 ??F) Oral 69 16 99 % 24hr Min/Max: Temp Min: 36.5 ??C (97.7 ??F) Max: 36.9 ??C (98.4 ??F) Pulse Min: 58 Max: 79 BP Min: 101/51 Max: 139/65 Resp Min: 16 Max: 18 SpO2 Min: 98 % Max: 100 % Intake/Output Summary (Last 24 hours) at 07/08/2024 1313 Last data filed at 07/08/2024 0400 Gross per 24 hour Intake -- Output 1125 ml Net -1125 ml PHYSICAL EXAM Constitutional: Lying on his side, chills noted HEENT:. Normal conjunctiva, no scleral icterus, EOMI. Neck: Supple, no jugular venous distension present Cardio: Normal rate, regular rhythm. No murmurs or extra heart sounds. Pulm/Chest: Normal respiratory effort and breath sounds. No wheezes or rales. Abd: Soft, mildly tender in all four quadrants. Normoactive bowel sounds. MSK/Extremities: No obvious deformities. No lower extremity edema. Neuro: AAO to person, place, and time; moving all extremities spontaneously. Skin: Skin is warm and dry. Psych: Mood and affect normal. Lab/Radiology/Diagnostic Review: CBC Recent Labs Lab Units 07/07/24204007/07/24 0114 07/06/24 0654 WBC K/cumm 4.9 4.6 4.6 HEMOGLOBIN g/dL 10.4* 10.3* 11.3* HEMATOCRIT % 33.1* 32.4* 36.1* PLATELETS K/cumm 559* 462* 368 Chem Recent Labs Lab Units 07/07/24204007/07/24 0114 07/06/24 0654 SODIUM mmol/L 141 140 139 POTASSIUM PLASMA mmol/L 4.5 4.2 4.0 CHLORIDE mmol/L 106 108 107 CO2 mmol/L 27 25 24 ANIONGAP mmol/L 8 7 8 BUN SERUM mg/dL 11 14 10 CREATININE mg/dL 1.00 0.99 0.96 GLUCOSE mg/dL 110 128 138 CALCIUM mg/dL 8.7 8.5 8.3* MAGNESIUM mg/dL 1.8 1.9 2.0 LFTs Recent Labs Lab Units 07/04/24 1007 07/03/24 0509 ALK PHOS Units/L 88 80 BILIRUBIN TOTAL mg/dL 0.3 0.3 TOTAL PROTEIN g/dL 7.2 8.3 ALT Units/L 41 46 AST Units/L 54* 102* Coags Recent Labs Lab Units 07/03/24 0517 07/03/24 0509 APTT sec -- 30 INR 2.0* -- Urine Analysis Recent Labs Lab Units 07/04/24 1007 COLOR U Yellow CLARITY U Cloudy* SPEC GRAV U 1.012 PH, URINE 6.5 PROTEIN UR QL 1+* GLUCOSE URQL Negative KETONES UR Negative BLOOD UR 2+* NITRITE UR Positive* LEUKOCYTE ESTERASE UR 3+* ABG Micro: Susceptibility data from last 90 days. Collected Specimen Info Organism Ampicillin Ampicillin/Sulbactam Cefazolin Cefdinir Cefepime Ceftazidime Ceftriaxone Cefurxime-axetil Cephalexin Ciprofloxacin Gentamicin Meropenem NITROFURANTOIN 07/04/24 Blood Staphylococcus haemolyticus 07/04/24 Blood Escherichia coli I S S S S S S S S 07/04/24 Urine Escherichia coli I S S S S S S S S S S S Plus growth of clinically insignificant bacterial vaibhav. Collected Specimen Info Organism Piperacillin/Tazobactam Trimethoprim/Sulfa 07/04/24 Blood Staphylococcus haemolyticus 07/04/24 Blood Escherichia coli S S 07/04/24 Urine Escherichia coli S S Plus growth of clinically insignificant bacterial vaibhav. IMAGING US Kidney Complete Result Date: 07/04/2024 Narrative: EXAMINATION: COMPLETE RENAL SONOGRAM HISTORY: Left-sided flank [...] artifact. Bladder: The urinary bladder is normal Impression: Mixed cystic and solid lesion in the [...] it. Electronically signed by: Yeimy Billingsley M.D. MRI Brain Incl Orbits W WO Contrast Result Date: 07/04/2024 Narrative: EXAMINATION: 1. Magnetic resonance imaging (MRI) of [...] is likely related to artifact/coil positioning. Sequences areto be repeated later on 07/04/2024. Both globes [...] normal. BRAIN: There is cerebral volume loss outof proportion for patient's age. There are unchanged [...] artery. There is no abnormal contrast enhancement. Impression: No MR evidence of acute intracranial abnormality. [...] it. Electronically signed by: Gwendolyn Gonzalez M.D. CT Abdomen Pelvis W Contrast Result Date: 07/04/2024 Narrative: EXAMINATION: Computed tomography of the abdomen and [...] focal hepatic lesion. The gallbladder is normal. Thespleen and pancreas are normal. The adrenal glands [...] inguinal hernia repair. No suspicious osseous lesion. Impression: Bilateral pyelonephritis and pyelitis. Electronically signed by: Juan Mason M.D. CTA/CTP Rapid Stroke (C) Result Date: 07/03/2024 Narrative: EXAMINATION: 1. Computed tomography angiography (CTA) of [...] was then obtained from the aortic arch tothe vertex following the uneventful administration of intravenous contrast. 3D images were generated on a dedicated workstation. CT perfusion of the brain was performed with intravenous contrast using a separate data acquisition. The data was transmitted to a separate workstation for processing by RAPID software ([employer]) to produce automated calculations of the estimated [...] ventricles. There are unchanged areas of periventricular hypoattenuation.Right sphenoid sinus retention cyst. There is no [...] occlusion or significant stenosis R M2 branches: noocclusion or significant stenosis R A2: no occlusion or significant stenosis Posterior circulation:L Vertebral Artery: no occlusion or significant stenosis. L vertebral artery dominant R Vertebral Artery: no occlusion or significant stenosis Basilar Artery: no occlusion or significant stenosis L DISCHARGE DOOR OPERATOR: no occlusion or significant stenosis R DISCHARGE DOOR OPERATOR: no occlusion or significant stenosis No cerebral [...] volume (Tmax > 6 sec): 0 mL Impression: 1. No CT evidence of stroke. 2. [...] it. Electronically signed by: Lio Huynh MD ECG 12 lead Result Date: 07/03/2024 Narrative: Chas Friedman MD 07/03/2024 8:47 AM ECG 12 lead Date/Time: 07/03/2024 8:45 AM Performed by: Chas Friedman MD Authorized by: Rafa Billings MD Rate: ECG rate: 69 beats per minute ECG rate assessment: normal Rhythm: Rhythm: sinus rhythm Ectopy: Ectopy: none QRS: QRS axis: Normal QRS intervals: Normal Conduction: Conduction: normal ST segments: ST segments:Normal T waves: T waves: normal Previous ECG: Previous ECG: Compared to current Date of previous EC06/26/2024 Similarity: No change Interpretation: Interpretation: No significant change RecommendedFollow-up: Recommended follow up: further workup in the ED ECG 12 lead Result Date: 06/26/2024 Narrative: Chas Friedman MD 06/26/2024 2:11 PM ECG 12 lead Date/Time: 06/26/2024 2:10 PM Performed by: Chas Friedman MD Authorized by: Chas Friedman MD Rate: ECG rate: 54 beats per minute ECG rate assessment: bradycardic Rhythm: Rhythm: sinus bradycardia Ectopy: Ectopy: none QRS: QRS axis: Normal QRS intervals: Normal Conduction: Conduction: normal ST segments: ST segments: Normal T waves: T waves: normal Other findings: Other findings: early repolarization Previous ECG: Previous ECG: Compared to current Date of previous EC06/02/2024 Similarity: No change Interpretation: Interpretation: No significant change Recommended Follow-up: Recommended follow up: further workup in the ED XR Chest PA Lateral 2 Views Result Date: 06/26/2024 Narrative: EXAMINATION: 2 view chest radiograph Impression: Comparison is made to 06/02/2024 x-ray. The lungs are normal in appearance without pleural effusion or pneumothorax. The cardiomediastinal silhouette is normal. Dictated by: Segundo Araiza M.D. (Ramanan) The radiology attending physician has personally reviewed this study, and had reviewed and/or edited this written report and agrees with it. Electronically signed by: Orly Jimenez M.D. CT Head WO Contrast Result Date: 06/06/2024 Narrative: EXAMINATION: CT head without contrast HISTORY: History of HIV, neck stiffness and blurryvision TECHNIQUE: CT of the head was performed with images acquired from skull base to vertex without intravenous contrast. COMPARISON: 04/28/2024 FINDINGS: Hypodensity in the right anterior temporallobe immediately anterior to the mastoid air cells seen on series 2, image 21 is most likely streakartifact but cannot exclude small parenchymal lesion. Unchanged diffuse cerebral atrophy, out of proportion for age. Hypodensity around bilateral frontal horns. There is no acute intracranial hemorrhage. Ventricles are of normal size and morphology. No mass effect or midline shift is present. The gr ay-white matter differentiation is normal. The visualized portions of the orbits are normal. The visualized portions of the mastoids are normal. Unchanged bilateral maxillary sinus disease. No fractures are identified. Mildly enlarged right cervical lymph nodes. Impression: 1. No acute intracranial hemorrhage. 2. Brain [...] has personally reviewed this study, and had revie wed and/or edited this written report and agrees with it. Electronically signed by: Maame Ruiz M.D. CURRENT MEDICATIONS Scheduled Medications: [id number]-[id number]-[id number], 1 tablet, oral, Daily cefTRIAXone, 2,000 mg, intravenous, Q24H KIMBERLEY [Held by Provider] DULoxetine DR, 60 mg, oral, Daily enoxaparin, 40 mg, subcutaneous, Daily-2100 folic acid, 1 mg, oral, Daily polyvinyl alcohol-povidone, 1 drop, each eye, TID psyllium (aspartame) SF, 1 packet, oral, Daily sodium chloride 0.9%, 0.5-20 mL, intra-catheter, Q8H KIMBERLEY (ALT) sulfamethoxazole-trimethoprim, 160 mg of trimethoprim, oral, Once per day on Sunday thiamine, 250 mg, oral, Daily PRN Medications: acetaminophen, 1,000 mg, 1,000 mg at 07/05/24 0427 sodium chloride 0.9%, 30 mL hydrOXYzine, 25 mg, 25 mg at 07/06/24 0841 influenza trivalent 2813-1734, 0.5 mL ondansetron, 4 mg ramelteon, 8 mg, 8 mg at 07/06/24 2217 sodium chloride 0.9%, 0.5-20 mL traZODone, 50 mg Assessment/Plan ASSESSMENT AND PLAN 28M with PMH HIV (poor ART adherence), hx neurosyphillis, prior TIAs, MARUI (amphetamine), and BPD p/w RLE weakness/numbness and vision changes, found to have b/l pyelonephritis w/ GNB bacteremia #Bilateral pyelonephritis #GN and GP bacteremia Presented with 2d of dysuria and urinary frequency. UA with >50 WBC, 3+ LE, +nitrites. CT showing bilateral (L > R) pyelonephritis; US kidney with possibly developing abscess. 07/04: 1/2 BCx growing GN bacilli, presumptive E. Coli and another 1/2 BCx growing BCx grew G+ cocci in clusters, possibly staph. 07/04 UCx grew EColi. 07/05 BCx NGTD. - Cefepime 2g q8h (07/05-07/06), switched to CTX Q12H on 07/06 -> transition to Q24H 07/07 - D/c CTX 07/08 -> transition to oral Bactrim for total 14 day abx course - consulted IR to discuss drainage - no fluid to drain, size is between an abscess and focal inflammation, if no improve on abx, re-scan in 3-4 days. - APAP PRN for fever #Diarrhea Patient states he developed diarrhea 07/06, had ~6 loose BM. Patient afebrile, WBC stable and WNL. Possibly 2/2 abx vs withdrawals. 07/08 patient reports that diarrhea has improved. - Continue daily psyllium #MAURI #Meth withdrawals Infectious screening as above. Per patient, uses meth regularly every weekend, and last used a weekago, thinks he is withdrawing a bit. Has mild tremors and yawning. UDS + amphetamines. Admits to IVDU meth. Also states that he drinks 6 shots/day but last drink tyrone a week ago. - C/s chemical dependency - UDS +amphetamines - atarax prn #HIV with hx poor adherence to ART CD4 count 132 (4%) this admit. Follows at [facility]. Hepatitis panel, G/C/Trich neg - Cont Biktarvy, Bactrim for PJP ppx - HIV RNA, genotypic resistance panel pending #R superior vision defect On admission, reported new decreased vision in superior quadrant of R eye. Presented to ED for sameyesterday. Evaluated by Neuro with some c/f CRAO or structural abnormality given hx of neurosyphilis. Eval by Ophtho during this admission., who felt subjective complaints did not correlate to objective exam findings but patient poorly participating in exam d/t intoxication. Notably, optho exam from 06/15 without evidence of ocular syphilis. bMRI s/f sequela of HIV encephalopathy, similar to prior imaging. Orbital sequences with artifact, rads recommend repeating - Per rads, re-ordered MRI orbit -> possible early left optic neuropathy - OP Ophtho f/u - Refresh eye drops TID as per ophtho #Depression with intermittent suicidal ideation #Hx of malingering He has 20+ visits for SI in the past year, has been evaluated multiple times in the past by psych and found to have chronic low-level SI without benefit from hospitalization. Recently hospitalized 05/2024 for reported benzo overdose (ingested 27 2mg tabs xanax) however UDS was negative, psychiatry at that time consulted: Overall, this patient is at chronic high risk of harm to self and others due to non-modifiable risk factors, and he does not have acute risk factors that can be modified by aninpatient psych admission. He has been admitted to psych multiples times without clear benefit; noted known pattern of repeated, manipulative attempts to remain hospitalized in order to obtain shelt er . Unclear what patient's psych regimen should be at this time. Last admit, notes document plan to hold off on re-starting psychotropic medications per Psych recommendation but Discharge Summary lists all of the following meds as active: aripiprazole, bupropion, buspirone, duloxetine, hydroxyzine, trazodone. No Med Dispense hx. Pt only reporting that he is supposed to be taking cymbalta but he has been not been taking. Per patient, he stopped taking psych meds due to SI 2 weeks ago, open to re-starting. - hold all psychiatric meds - OP psych follow-up #Hx neurosyphilis: Chart history of dx 2017 and 2023, most recently treated with 14d IV PCN (09/2023). Syphilis serologies remain persistently elevated. RPR titer this admit stable from prior at 1:32.LP 06/15 with bland serologies. #RLE weakness; #Chronic peripheral neuropathy Evaluated by Neuro during ED presentation yesterday, most likely chronic due to similar complaints on prior presentations. -PT/OT ordered - Diet: Adult Diet Regular - DVT PPX: Lovenox - Access:PIVs - PT/OT: consults placed - CODE STATUS: Full Code - Dispo: EMERGENCY CONTACT Contact: Extended Emergency Contact Information Primary Emergency Contact: Sarah Simpson Mobile Relation: Mother Sindy Black MD PGY-1, Anesthesiology [facility] [place] Please check Amion to find on-call list. Generally, the medicine teams are here until 4:30 PM M-F when not on-call. call center manager days, teams are here until 8 PM. On non-call weekend days, check Amion for the on-call team who are likely providing cross-coverage. Cosigned by Cari Steven MD at 07/09/2024 5:07 PM [employer] [facility] [employer] Associated attestation - Cari Steven MD - 07/09/2024 5:07 PM [employer] Attending Documentation I have seen and examined the patient on 07/08/2024. I agree with the findings and plan of care as documented in the resident's/fellow's note. Pt has rcvd 5 days of IV abx and has had clinical improvement with clearance of bld cxs. He can transition to oral abx. No need for rescan of kidney given clinical improvement. Diarrhea has self resolved making cdiff very unlikely. Discharge today Cari Steven MD * Martha Koch, [facility] ED - 07/08/2024 9:57 AM CST Pharmacist Home Medication Review The clinical manager clinical pharmacy has completed a medication review with the patient/caregiver and has made the following edits to the home medication list: Medication additions None Medication deletions Bupropion XL 150mg PO daily Doxepin 25mg PO qHS Ibuprofen 600mg PO q6h PRN Trazodone 50mg PO qHS PRN Medication alterations None Home medications - following pharmacist reconciliation Medication List TAKE these medications Pharmacy Comments ARIPiprazole 10 mg tablet Commonly known as: ABILIFY Take 1 tablet (10 mg total) by mouth daily for 15 days Notes to patient: For schizophrenia, bipolar disorder, depression, Tourette's syndrome Side effects: headache, tiredness, weight gain jjgsahxpmme-qnliqlfgcnnab-ibuqeznpv 50-200-25 mg tablet Commonly known as: BIKTARVY Take 1 tablet by mouth daily Notes to patient: Antiviral, treat HIV infection Side effects: diarrhea, nausea, headache DULoxetine DR 60 mg capsule Commonly known as: CYMBALTA Take 1 capsule (60 mg total) by mouth daily for 15 days Notes to patient: Antianxiety, antidepressant, pain management Side effects: sweating, weight loss, abdominal pain, constipation, nausea, dry mouth gabapentin 100 mg capsule Commonly known as: NEURONTIN Take 1 capsule (100 mg total) by mouth 3 (three) times a day Notes to patient: Neuropathy/nerve pain management Side Effects: fatigue, dizziness, nausea hydrOXYzine 50 mg tablet Commonly known as: ATARAX Take 1 tablet (50 mg total) by mouth every 6 (six) hours as needed for anxiety for up to 15 days Notes to patient: Antianxiety Side effects: cough, dizziness, low heart rate loperamide 2 mg capsule Commonly known as: IMODIUM Take 1 capsule (2 mg total) by mouth as needed for diarrhea Notes to patient: Anti-diarrheal, treat diarrhea Side effects: constipation, abdominal pain, nausea, dizziness sulfamethoxazole-trimethoprim 800-160 mg per tablet Commonly known as: BACTRIM DS Take 1 tablet (160 mg of trimethoprim total) by mouth 3 (three) times a week Notes to patient: Antibiotic, prevents bacterial infections Side effects: sunburn easily, low blood sugar, diarrhea, dizziness, purple patches on skin Allergies - following pharmacist reconciliation Patient has no known allergies. Joanne Koch, PharmD, [facility] Clinical Security Sales Consultant - Transitions of Care [employer] * Gayatri Preston PT - 07/07/2024 11:52 AM CST 07/07/24 1152 General PT Missed Visit Reason Patient declined ( I'm not feeling well today ) [employer] * Sindy Black MD - 07/07/2024 7:39 AM CST MEDICINE DAILY PROGRESS NOTE Date of Admission: 07/04/2024 Date of Service: 07/07/24 CARE TEAM Patient: Phil Chase Room: [place] [id number] Service: Medical Primary Care Physician: Mady Sullivan MD Subjective BRIEF HPI Phil Chase is a 28 y.o. male with PMH significant for HIV (not taking ART therapy 2/2 depression), hx TIAs, MAURI (amphetamine), hx neurosyphillis, transverse myelitis, peripheral neuropathy, borderline personality disorder, and malingering who presented with L. Side flank pain + associated dysuria for the past three days along with right leg weakness/numbness and vision changes. INTERVAL HISTORY - VSS. Patient defecated on floor yesterday. Refused vanc and lab draw last night. - Per patient this AM, developed diarrhea yesterday and had ~6 BM, wasn't able to make it to toilet. No fevers, chills, WBC stable and WNL - Otherwise, patient continues to endorse improvement in abdominal pain. Objective VITALS / I&Os Patient Vital Signs for the past 24 hrs: BP MAP (mmHg) Temp Temp src Pulse Resp SpO2 07/07/24 0400 118/59 72 36.4 ??C (97.5 ??F) Axillary 73 16 -- 07/07/24 0000 124/64 78 36.4 ??C (97.5 ??F) Oral 78 16 -- 07/06/24 2335 -- -- -- Oral -- 16 -- 07/06/24 1815 138/68 85 36.7 ??C (98.1 ??F) -- 63 16 100 % 07/06/24 1340 133/72 84 36.8 ??C (98.2 ??F) -- 77 16 91 % 07/06/24 0805 106/63 72 37.4 ??C (99.3 ??F) -- 80 16 95 % 24hr Min/Max: Temp Min: 36.4 ??C (97.5 ??F) Max: 37.4 ??C (99.3 ??F) Pulse Min: 63 Max: 80 BP Min: 106/63 Max: 138/68 Resp Min: 16 Max: 16 SpO2 Min: 91 % Max: 100 % Intake/Output Summary (Last 24 hours) at 07/07/2024 0739 Last data filed at 07/07/2024 0640 Gross per 24 hour Intake 1478 ml Output 1550 ml Net -72 ml PHYSICAL EXAM Constitutional: Lying on his side, chills noted HEENT:. Normal conjunctiva, no scleral icterus, EOMI. Neck: Supple, no jugular venous distension present Cardio: Normal rate, regular rhythm. No murmurs or extra heart sounds. Pulm/Chest: Normal respiratory effort and breath sounds. No wheezes or rales. Abd: Soft, mildly tender in all four quadrants. Normoactive bowel sounds. Voluntary guarding, no rebound. CVAT noted on R. Side. MSK/Extremities: No obvious deformities. No lower extremity edema. Neuro: AAO to person, place, and time; moving all extremities spontaneously. Skin: Skin is warm and dry. Psych: Mood and affect normal. Lab/Radiology/Diagnostic Review: CBC Recent Labs Lab Units 07/07/24 0114 07/06/24 0654 07/04/24 2139 WBC K/cumm 4.6 4.6 8.7 HEMOGLOBIN g/dL 10.3* 11.3* 10.1* HEMATOCRIT % 32.4* 36.1* 31.6* PLATELETS K/cumm 462* 368 260 Chem Recent Labs Lab Units 07/07/24 0114 07/06/24 0654 07/05/24 1219 07/05/24 0555 07/04/24 2139 SODIUM mmol/L 140 139 -- -- 138 POTASSIUM PLASMA mmol/L 4.2 4.0 -- -- 3.7 CHLORIDE mmol/L 108 107 -- -- 104 CO2 mmol/L 25 24 -- -- 27 ANIONGAP mmol/L 7 8 -- -- 7 BUN SERUM mg/dL 14 10 -- -- 14 CREATININE mg/dL 0.99 0.96 -- -- 1.23 GLUCOSE mg/dL 128 138 -- -- 106 POC GLUCOSE MONITOR mg/dL -- -- 114 < > -- CALCIUM mg/dL 8.5 8.3* -- -- 8.1* MAGNESIUM mg/dL 1.9 2.0 -- -- 1.7 < > = values in this interval not displayed. LFTs Recent Labs Lab Units 07/04/24 1007 07/03/24 0509 ALK PHOS Units/L 88 80 BILIRUBIN TOTAL mg/dL 0.3 0.3 TOTAL PROTEIN g/dL 7.2 8.3 ALT Units/L 41 46 AST Units/L 54* 102* Coags Recent Labs Lab Units 07/03/24 0517 07/03/24 0509 APTT sec -- 30 INR 2.0* -- Urine Analysis Recent Labs Lab Units 07/04/24 1007 COLOR U Yellow CLARITY U Cloudy* SPEC GRAV U 1.012 PH, URINE 6.5 PROTEIN UR QL 1+* GLUCOSE URQL Negative KETONES UR Negative BLOOD UR 2+* NITRITE UR Positive* LEUKOCYTE ESTERASE UR 3+* ABG Micro: Susceptibility data from last 90 days. Collected Specimen Info Organism Ampicillin Ampicillin/Sulbactam Cefazolin Cefdinir Cefepime Ceftazidime Ceftriaxone Cefurxime-axetil Cephalexin Ciprofloxacin Gentamicin Meropenem NITROFURANTOIN 07/04/24 Blood Staphylococcus haemolyticus 07/04/24 Blood Escherichia coli I S S S S S S S S 07/04/24 Urine Escherichia coli I S S S S S S S S S S S Plus growth of clinically insignificant bacterial vaibhav. Collected Specimen Info Organism Piperacillin/Tazobactam Trimethoprim/Sulfa 07/04/24 Blood Staphylococcus haemolyticus 07/04/24 Blood Escherichia coli S S 07/04/24 Urine Escherichia coli S S Plus growth of clinically insignificant bacterial vaibhav. IMAGING US Kidney Complete Result Date: 07/04/2024 Narrative: EXAMINATION: COMPLETE RENAL SONOGRAM HISTORY: Left-sided flank [...] artifact. Bladder: The urinary bladder is normal Impression: Mixed cystic and solid lesion in the [...] it. Electronically signed by: Yeimy Billingsley M.D. MRI Brain Incl Orbits W WO Contrast Result Date: 07/04/2024 Narrative: EXAMINATION: 1. Magnetic resonance imaging (MRI) of [...] is likely related to artifact/coil positioning. Sequences areto be repeated later on 07/04/2024. Both globes [...] normal. BRAIN: There is cerebral volume loss outof proportion for patient's age. There are unchanged [...] artery. There is no abnormal contrast enhancement. Impression: No MR evidence of acute intracranial abnormality. [...] agrees with it. Electronically signed by: Gwendolyn Gonzalze M.D. CT Abdomen Pelvis W Contrast Result Date: 07/04/2024 Narrative: EXAMINATION: Computed tomography of the abdomen and [...] focal hepatic lesion. The gallbladder is normal. Thespleen and pancreas are normal. The adrenal glands [...] inguinal hernia repair. No suspicious osseous lesion. Impression: Bilateral pyelonephritis and pyelitis. Electronically signed by: Juan Mason M.D. CTA/CTP Rapid Stroke (C) Result Date: 07/03/2024 Narrative: EXAMINATION: 1. Computed tomography angiography (CTA) of [...] was then obtained from the aortic arch tothe vertex following the uneventful administration of intravenous contrast. 3D images were generated on a dedicated workstation. CT perfusion of the brain was performed with intravenous contrast using a separate data acquisition. The data was transmitted to a separate workstation for processing by RAPID software ([employer]) to produce automated calculations of the estimated [...] ventricles. There are unchanged areas of periventricular hypoattenuation.Right sphenoid sinus retention cyst. There is no [...] occlusion or significant stenosis R M2 branches: noocclusion or significant stenosis R A2: no occlusion or significant stenosis Posterior circulation:L Vertebral Artery: no occlusion or significant stenosis. L vertebral artery dominant R Vertebral Ar elaine: no occlusion or significant stenosis Basilar Artery: no occlusion or significant stenosis L DISCHARGE DOOR OPERATOR: no occlusion or significant stenosis R DISCHARGE DOOR OPERATOR: no occlusion or significant stenosis No cerebral [...] volume (Tmax > 6 sec): 0 mL Impression: 1. No CT evidence of stroke. 2. [...] it. Electronically signed by: Lio Huynh MD ECG 12 lead Result Date: 07/03/2024 Narrative: Chas Friedman MD 07/03/2024 8:47 AM ECG 12 lead Date/Time: 07/03/2024 8:45 AM Performed by: Chas Friedman MD Authorized by: Rafa Billings MD Rate: ECG rate: 69 beats per minute ECG rate assessment: normal Rhythm: Rhythm: sinus rhythm Ectopy: Ectopy: none QRS: QRS axis: Normal QRS intervals: Normal Conduction: Conduction: normal ST segments: ST segments:Normal T waves: T waves: normal Previous ECG: Previous ECG: Compared to current Date of previous EC06/26/2024 Similarity: No change Interpretation: Interpretation: No significant change RecommendedFollow-up: Recommended follow up: further workup in the ED ECG 12 lead Result Date: 06/26/2024 Narrative: Chas Friedman MD 06/26/2024 2:11 PM ECG 12 lead Date/Time: 06/26/2024 2:10 PM Performed by: Chas Friedman MD Authorized by: Chas Friedman MD Rate: ECG rate: 54 beatsper minute ECG rate assessment: bradycardic Rhythm: Rhythm: sinus bradycardia Ectopy: Ectopy: none Q RS: QRS axis: Normal QRS intervals: Normal Conduction: Conduction: normal ST segments: ST segments: Normal T waves: T waves: normal Other findings: Other findings: early repolarization Previous ECG:Previous ECG: Compared to current Date of previous EC06/02/2024 Similarity: No change Interpretation: Interpretation: No significant change Recommended Follow-up: Recommended follow up: further workup in the ED XR Chest PA Lateral 2 Views Result Date: 06/26/2024 Narrative: EXAMINATION: 2 view chest radiograph Impression: Comparison is made to 06/02/2024 x-ray. The lungs are normal in appearance without pleural effusion or pneumothorax. The cardiomediastinal silhouette is normal. Dictated by: Segundo Araiza M.D. (Ramanan) The radiology attending physician has personally reviewed this study, and had reviewed and/or edited this written report and agrees with it. Electronically signed by: Orly Jimenez M.D. CT Head WO Contrast Result Date: 06/06/2024 Narrative: EXAMINATION: CT head without contrast HISTORY: History of HIV, neck stiffness and blurryvision TECHNIQUE: CT of the head was performed with images acquired from skull base to vertex without intravenous contrast. COMPARISON: 04/28/2024 FINDINGS: Hypodensity in the right anterior temporallobe immediately anterior to the mastoid air cells seen on series 2, image 21 is most likely streakartifact but cannot exclude small parenchymal lesion. Unchanged diffuse cerebral atrophy, out of proportion for age. Hypodensity around bilateral frontal horns. There is no acute intracranial hemorrhage. Ventricles are of normal size and morphology. No mass effect or midline shift is present. The gr ay-white matter differentiation is normal. The visualized portions of the orbits are normal. The visualized portions of the mastoids are normal. Unchanged bilateral maxillary sinus disease. No fractures are identified. Mildly enlarged right cervical lymph nodes. Impression: 1. No acute intracranial hemorrhage. 2. Brain atrophy out proportion for age, but unchanged from prior. 3. Partially visualized incidental borderline right cervical lymphadenopathy, whichis nonspecific and similar to that seen on prior cervical spine CT from 04/28/2024. Recommend correlation with exam and consider neck CT for further evaluation. 4. Hypodensity in the right anterior temporal lobe immediately anterior to the mastoid air cells is most likely streak artifact, but cannotexclude small parenchymal lesion. Recommend brain MRI for further evaluation. Dictated by: Yee Oglesby M.D. The radiology attending physician has personally reviewed this study, and had reviewed and/or edited this written report and agrees with it. Electronically signed by: Maame Ruiz M.D. CURRENT MEDICATIONS Scheduled Medications: aomolvvsrsl-bpepqdsupllyn-tinodvtny, 1 tablet, oral, Daily cefTRIAXone, 2,000 mg, intravenous, Q12H KIMBERLEY [Held by Provider] DULoxetine DR, 60 mg, oral, Daily enoxaparin, 40 mg, subcutaneous, Daily-2100 folic acid, 1 mg, oral, Daily polyvinyl alcohol-povidone, 1 drop, each eye, TID sodium chloride 0.9%, 0.5-20 mL, intra-catheter, Q8H KIMBERLEY (ALT) sulfamethoxazole-trimethoprim, 160 mg of trimethoprim, oral, Once per day on Sunday thiamine, 500 mg, intravenous, Q8H Followed by [START ON 07/08/2024] thiamine, 250 mg, oral, Daily vancomycin, 15 mg/kg, intravenous, Q12H PRN Medications: acetaminophen, 1,000 mg, 1,000 mg at 07/05/24 0427 sodium chloride 0.9%, 30 mL hydrOXYzine, 25 mg, 25 mg at 07/06/24 0841 influenza trivalent [id number], 0.5 mL ondansetron, 4 mg ramelteon, 8 mg, 8 mg at 07/06/24 2217 sodium chloride 0.9%, 0.5-20 mL traZODone, 50 mg Assessment/Plan ASSESSMENT AND PLAN 28M with PMH HIV (poor ART adherence), hx neurosyphillis, prior TIAs, MAURI (amphetamine), and BPD p/w RLE weakness/numbness and vision changes, found to have b/l pyelonephritis w/ GNB bacteremia #Bilateral pyelonephritis #GN and GP bacteremia Presented with 2d of dysuria and urinary frequency. UA with >50 WBC, 3+ LE, +nitrites. CT showing bilateral (L > R) pyelonephritis; US kidney with possibly developing abscess. 07/04: 1/2 BCx growing GN bacilli, presumptive E. Coli and another 1/2 BCx growing BCx grew G+ cocci in clusters, possibly staph. 07/04 UCx grew EColi. 07/05 BCx NGTD. - Cefepime 2g q8h (07/05-07/06), switched to CTX Q12H on 07/06 -> transition to Q24H 07/07 - D/c vanc given Staph haemolyticus, only grew in one culture bottle - Transition to oral abx regimen tomorrow - consulted IR to discuss drainage - no fluid to drain, size is between an abscess and focal inflammation, if no improve on abx, re-scan in 3-4 days. - APAP PRN for fever #Diarrhea Patient states he developed diarrhea 07/06, had ~6 loose BM. Patient afebrile, WBC stable and WNL. Possibly 2/2 abx vs withdrawals - R/o C diff - Start psyllium daily - Consider imodium if C diff negative #MAURI #Meth withdrawals Infectious screening as above. Per patient, uses meth regularly every weekend, and last used a weekago, thinks he is withdrawing a bit. Has mild tremors and yawning. UDS + amphetamines. Admits to IVDU meth. Also states that he drinks 6 shots/day but last drink tyrone a week ago. - C/s chemical dependency - UDS +amphetamines - atarax prn #HIV with hx poor adherence to ART CD4 count 132 (4%) this admit. Follows at [facility]. Hepatitis panel, G/C/Trich neg - Cont Biktarvy, Bactrim for PJP ppx - HIV RNA, genotypic resistance panel pending #R superior vision defect On admission, reported new decreased vision in superior quadrant of R eye. Presented to ED for sameyesterday. Evaluated by Neuro with some c/f CRAO or structural abnormality given hx of neurosyphilis. Eval by Ophtho during this admission., who felt subjective complaints did not correlate to objective exam findings but patient poorly participating in exam d/t intoxication. Notably, optho exam from 06/15 without evidence of ocular syphilis. bMRI s/f sequela of HIV encephalopathy, similar to prior imaging. Orbital sequences with artifact, rads recommend repeating - Per rads, re-ordered MRI orbit - OP Ophtho f/u - Refresh eye drops TID as per ophtho #Depression with intermittent suicidal ideation #Hx of malingering He has 20+ visits for SI in the past year, has been evaluated multiple times in the past by psych and found to have chronic low-level SI without benefit from hospitalization. Recently hospitalized 05/2024 for reported benzo overdose (ingested 27 2mg tabs xanax) however UDS was negative, psychiatry at that time consulted: Overall, this patient is at chronic high risk of harm to self and others due to non-modifiable risk factors, and he does not have acute risk factors that can be modified by aninpatient psych admission. He has been admitted to psych multiples times without clear benefit; noted known pattern of repeated, manipulative attempts to remain hospitalized in order to obtain shelt er . Unclear what patient's psych regimen should be at this time. Last admit, notes document plan to hold off on re-starting psychotropic medications per Psych recommendation but Discharge Summary lists all of the following meds as active: aripiprazole, bupropion, buspirone, duloxetine, hydroxyzine, trazodone. No Med Dispense hx. Pt only reporting that he is supposed to be taking cymbalta but he has been not been taking. Per patient, he stopped taking psych meds due to SI 2 weeks ago, open to re-starting. - hold all psychiatric meds - OP psych follow-up #Hx neurosyphilis: Chart history of dx 2017 and 2023, most recently treated with 14d IV PCN (09/2023). Syphilis serologies remain persistently elevated. RPR titer this admit stable from prior at 1:32.LP 06/15 with bland serologies. #RLE weakness; #Chronic peripheral neuropathy Evaluated by Neuro during ED presentation yesterday, most likely chronic due to similar complaints on prior presentations. -PT/OT ordered - Diet: Adult Diet Regular - DVT PPX: Lovenox - Access:PIVs - PT/OT: consults placed - CODE STATUS: Full Code - Dispo: tbd EMERGENCY CONTACT Contact: Extended Emergency Contact Information Primary Emergency Contact: Sarah Simpson Mobile Relation: Mother Sindy Black MD PGY-1, Anesthesiology [facility] in [place] Please check Amion to find on-call list. Generally, the medicine teams are here until 4:30 PM M-F when not on-call. call center manager days, teams are here until 8 PM. On non-call weekend days, check Amion for the on-call team who are likely providing cross-coverage. Cosigned by Cari Steven MD at 07/09/2024 5:06 PM [employer] NE [employer] Associated attestation - Cari Steven MD - 07/09/2024 5:06 PM [employer] Attending Documentation I have seen and examined the patient on 07/07/24. I agree with the findings and plan of care as documented in the resident's/fellow's note. Now with diarrhea which is likely withdrawal, but given administration of broad spectrum abx in past few days will rule out cdiff. GPCs on blood cultured consistent with contaminate so will stop vancomycin. Anticipate dicharge tomorrow on oral abx Cari Steven MD * Dorothy Martinez MD - 07/06/2024 8:58 AM CST MEDICINE DAILY PROGRESS NOTE Date of Admission: 07/04/2024 Date of Service: 07/06/24 CARE TEAM Patient: Phil Chase Room: [id number] Service: Medical Primary Care Physician: Mady Sullivan MD Subjective BRIEF HPI Phil Chase is a 28 y.o. male with PMH significant for HIV (not taking ART therapy 2/2 depression), hx TIAs, MAURI (amphetamine), hx neurosyphillis, transverse myelitis, peripheral neuropathy, borderline personality disorder, and malingering who presented with L. Side flank pain + associated dysuria for the past three days along with right leg weakness/numbness and vision changes. INTERVAL HISTORY -Patient is doing well today, with improvement in abdominal pain and mild improvement in R vision. He denies chest pain, SOB. He had some nausea and vomiting but very good appetite, and 1x loose stool, likely from withdrawals and abx. OT rec home. UDS+ for amphetamine. Refused labs ON. New NGTD.Urine Cx Ecoli. Objective VITALS / I&Os Patient Vital Signs for the past 24 hrs: BP MAP (mmHg) Temp Temp src Pulse Resp SpO2 07/06/24 0805 106/63 72 37.4 ??C (99.3 ??F) -- 80 16 95 % 07/06/24 0400 134/60 77 37.1 ??C (98.7 ??F) Oral 73 16 -- 07/06/24 0223 120/53 69 36.7 ??C (98.1 ??F) Axillary 75 18 93 % 07/06/24 0000 106/68 76 37.7 ??C (99.8 ??F) Axillary 91 18 -- 07/05/242007 110/46 61 36.2 ??C (97.2 ??F) Oral 73 17 100 % 07/05/24 2000 129/68 80 36.9 ??C (98.4 ??F) Oral 75 16 -- 07/05/24 1545 118/57 68 36.2 ??C (97.2 ??F) -- 66 16 99 % 07/05/24 1225 121/47 62 36.7 ??C (98.1 ??F) Oral 69 20 99 % 07/05/24 0905 111/58 70 -- -- -- -- -- 24hr Min/Max: Temp Min: 36.2 ??C (97.2 ??F) Max: 37.7 ??C (99.8 ??F) Pulse Min: 66 Max: 91 BP Min: 106/63 Max: 134/60 Resp Min: 16 Max: 20 SpO2 Min: 93 % Max: 100 % Intake/Output Summary (Last 24 hours) at 07/06/2024 0904 Last data filed at 07/06/2024 0850 Gross per 24 hour Intake 1248 ml Output 2650 ml Net -1402 ml PHYSICAL EXAM Constitutional: Lying on his side, chills noted HEENT:. Normal conjunctiva, no scleral icterus, EOMI. Neck: Supple, no jugular venous distension present Cardio: Normal rate, regular rhythm. No murmurs or extra heart sounds. Pulm/Chest: Normal respiratory effort and breath sounds. No wheezes or rales. Abd: Soft, moderately tender in all four quadrants. Guarding noted. Normoactive bowel sounds. No rebound. CVAT noted on R. Side. MSK/Extremities: No obvious deformities. No lower extremity edema. Neuro: AAO to person, place, and time; moving all extremities spontaneously. Refusing complete neuro exam. Skin: Skin is warm and dry. Could not perform full skin exam. Psych: Mood and affect normal. Lab/Radiology/Diagnostic Review: CBC Recent Labs Lab Units 07/06/24 0654 07/04/24213807/04/24 1007 WBC K/cumm 4.6 8.7 7.1 HEMOGLOBIN g/dL 11.3* 10.1* 10.9* HEMATOCRIT % 36.1* 31.6* 34.3* PLATELETS K/cumm 368 260 262 Chem Recent Labs Lab Units 07/06/24 0654 07/05/24 1219 07/05/24 0555 07/04/249 07/04/24 1007 SODIUM mmol/L 139 -- -- 138 142 POTASSIUM PLASMA mmol/L 4.0 -- -- 3.7 3.8 CHLORIDE mmol/L 107 -- -- 104 109 CO2 mmol/L 24 -- -- 27 23 ANIONGAP mmol/L 8 -- -- 7 10 BUN SERUM mg/dL 10 -- -- 14 13 CREATININE mg/dL 0.96 -- -- 1.23 1.05 GLUCOSE mg/dL 138 -- -- 106 106 POC GLUCOSE MONITOR mg/dL -- 114 113 -- -- CALCIUM mg/dL 8.3* -- -- 8.1* 8.7 MAGNESIUM mg/dL 2.0 -- -- 1.7 -- LFTs Recent Labs Lab Units 07/04/24 1007 07/03/24 0509 ALK PHOS Units/L 88 80 BILIRUBIN TOTAL mg/dL 0.3 0.3 TOTAL PROTEIN g/dL 7.2 8.3 ALT Units/L 41 46 AST Units/L 54* 102* Coags Recent Labs Lab Units 07/03/24 0517 07/03/24 0509 APTT sec -- 30 INR 2.0* -- Urine Analysis Recent Labs Lab Units 07/04/24 1007 COLOR U Yellow CLARITY U Cloudy* SPEC GRAV U 1.012 PH, URINE 6.5 PROTEIN UR QL 1+* GLUCOSE URQL Negative KETONES UR Negative BLOOD UR 2+* NITRITE UR Positive* LEUKOCYTE ESTERASE UR 3+* ABG Micro: Susceptibility data from last 90 days. Collected Specimen Info Organism Ampicillin Ampicillin/Sulbactam Cefazolin Cefdinir Cefepime Ceftazidime Ceftriaxone Cefurxime-axetil Cephalexin Ciprofloxacin Gentamicin Meropenem NITROFURANTOIN 07/04/24 Blood Escherichia coli I S S S S S S S S 07/04/24 Urine Escherichia coli I S S S S S S S S S S S Plus growth of clinically insignificant bacterial vaibhav. Collected Specimen Info Organism Piperacillin/Tazobactam Trimethoprim/Sulfa 07/04/24 Blood Escherichia coli S S 07/04/24 Urine Escherichia coli S S Plus growth of clinically insignificant bacterial vaibhav. IMAGING US Kidney Complete Result Date: 07/04/2024 Narrative: EXAMINATION: COMPLETE RENAL SONOGRAM HISTORY: Left-sided flank [...] artifact. Bladder: The urinary bladder is normal Impression: Mixed cystic and solid lesion in the [...] it. Electronically signed by: Yeimy Billingsley M.D. MRI Brain Incl Orbits W WO Contrast Result Date: 07/04/2024 Narrative: EXAMINATION: 1. Magnetic resonance imaging (MRI) of [...] is likely related to artifact/coil positioning. Sequences areto be repeated later on 07/04/2024. Both globes [...] normal. BRAIN: There is cerebral volume loss outof proportion for patient's age. There are unchanged [...] artery. There is no abnormal contrast enhancement. Impression: No MR evidence of acute intracranial abnormality. [...] it. Electronically signed by: Gwendolyn Gonzalez M.D. CT Abdomen Pelvis W Contrast Result Date: 07/04/2024 Narrative: EXAMINATION: Computed tomography of the abdomen and [...] focal hepatic lesion. The gallbladder is normal. Thespleen and pancreas are normal. The adrenal glands [...] inguinal hernia repair. No suspicious osseous lesion. Impression: Bilateral pyelonephritis and pyelitis. Electronically signed by: Juan Mason M.D. CTA/CTP Rapid Stroke (C) Result Date: 07/03/2024 Narrative: EXAMINATION: 1. Computed tomography angiography (CTA) of [...] was then obtained from the aortic arch tothe vertex following the uneventful administration of intravenous contrast. 3D images were generated on a dedicated workstation. CT perfusion of the brain was performed with intravenous contrast using a separate data acquisition. The data was transmitted to a separate workstation for processing by RAPID software ([employer]) to produce automated calculations of the estimated [...] ventricles. There are unchanged areas of periventricular hypoattenuation.Right sphenoid sinus retention cyst. There is no [...] occlusion or significant stenosis R M2 branches: noocclusion or significant stenosis R A2: no occlusion or significant stenosis Posterior circulation:L Vertebral Artery: no occlusion or significant stenosis. L vertebral artery dominant R Vertebral Ar elaine: no occlusion or significant stenosis Basilar Artery: no occlusion or significant stenosis L DISCHARGE DOOR OPERATOR: no occlusion or significant stenosis R DISCHARGE DOOR OPERATOR: no occlusion or significant stenosis No cerebral [...] volume (Tmax > 6 sec): 0 mL Impression: 1. No CT evidence of stroke. 2. [...] it. Electronically signed by: Lio Huynh MD ECG 12 lead Result Date: 07/03/2024 Narrative: Chas Friedman MD 07/03/2024 8:47 AM ECG 12 lead Date/Time: 07/03/2024 8:45 AM Performed by: Chas Friedman MD Authorized by: Rafa Billings MD Rate: ECG rate: 69 beats per minute ECG rate assessment: normal Rhythm: Rhythm: sinus rhythm Ectopy: Ectopy: none QRS: QRS axis: Normal QRS intervals: Normal Conduction: Conduction: normal ST segments: ST segments:Normal T waves: T waves: normal Previous ECG: Previous ECG: Compared to current Date of previous EC06/26/2024 Similarity: No change Interpretation: Interpretation: No significant change RecommendedFollow-up: Recommended follow up: further workup in the ED ECG 12 lead Result Date: 06/26/2024 Narrative: Chas Friedman MD 06/26/2024 2:11 PM ECG 12 lead Date/Time: 06/26/2024 2:10 PM Performed by: Chas Friedman MD Authorized by: Chas Friedman MD Rate: ECG rate: 54 beatsper minute ECG rate assessment: bradycardic Rhythm: Rhythm: sinus bradycardia Ectopy: Ectopy: none Q RS: QRS axis: Normal QRS intervals: Normal Conduction: Conduction: normal ST segments: ST segments:Normal T waves: T waves: normal Other findings: Other findings: early repolarization Previous ECG: Previous ECG: Compared to current Date of previous EC06/02/2024 Similarity: No change Interpretation: Interpretation: No significant change Recommended Follow-up: Recommended follow up: further workup in the ED XR Chest PA Lateral 2 Views Result Date: 06/26/2024 Narrative: EXAMINATION: 2 view chest radiograph Impression: Comparison is made to 06/02/2024 x-ray. The lungs are normal in appearance without pleural effusion or pneumothorax. The cardiomediastinal silhouette is normal. Dictated by: Segundo Araiza M.D. (Ramanan) The radiology attending physician has personally reviewed this study, and had reviewed and/or edited this written report and agrees with it. Electronically signed by: Orly Jimenez M.D. CT Head WO Contrast Result Date: 06/06/2024 Narrative: EXAMINATION: CT head without contrast HISTORY: History of HIV, neck stiffness and blurryvision TECHNIQUE: CT of the head was performed with images acquired from skull base to vertex without intravenous contrast. COMPARISON: 04/28/2024 FINDINGS: Hypodensity in the right anterior temporallobe immediately anterior to the mastoid air cells seen on series 2, image 21 is most likely streakartifact but cannot exclude small parenchymal lesion. Unchanged diffuse cerebral atrophy, out of proportion for age. Hypodensity around bilateral frontal horns. There is no acute intracranial hemorrhage. Ventricles are of normal size and morphology. No mass effect or midline shift is present. The gr ay-white matter differentiation is normal. The visualized portions of the orbits are normal. The visualized portions of the mastoids are normal. Unchanged bilateral maxillary sinus disease. No fractures are identified. Mildly enlarged right cervical lymph nodes. Impression: 1. No acute intracranial hemorrhage. 2. Brain atrophy out proportion for age, but unchanged from prior. 3. Partially visualized incidental borderline right cervical lymphadenopathy, whichis nonspecific and similar to that seen on prior cervical spine CT from 04/28/2024. Recommend correlation with exam and consider neck CT for further evaluation. 4. Hypodensity in the right anterior temporal lobe immediately anterior to the mastoid air cells is most likely streak artifact, but cannotexclude small parenchymal lesion. Recommend brain MRI for further evaluation. Dictated by: Yee Oglesby M.D. The radiology attending physician has personally reviewed this study, and had reviewed and/or edited this written report and agrees with it. Electronically signed by: Maame Ruiz M.D. CURRENT MEDICATIONS Scheduled Medications: rmgnxlvdwzh-gdpcpgwecmrzg-ihtvmnntm, 1 tablet, oral, Daily cefTRIAXone, 2,000 mg, intravenous, Q12H KIMBERLEY [Held by Provider] DULoxetine DR, 60 mg, oral, Daily enoxaparin, 40 mg, subcutaneous, Daily-2100 folic acid, 1 mg, oral, Daily polyvinyl alcohol-povidone, 1 drop, each eye, TID sodium chloride 0.9%, 0.5-20 mL, intra-catheter, Q8H KIMBERLEY (ALT) sulfamethoxazole-trimethoprim, 160 mg of trimethoprim, oral, Once per day on Sunday thiamine, 500 mg, intravenous, Q8H Followed by [START ON 07/08/2024] thiamine, 250 mg, oral, Daily vancomycin, 15 mg/kg, intravenous, Q12H PRN Medications: acetaminophen, 1,000 mg, 1,000 mg at 07/05/24 0427 sodium chloride 0.9%, 30 mL hydrOXYzine, 25 mg, 25 mg at 07/06/24 0841 influenza trivalent [id number], 0.5 mL ondansetron, 4 mg ramelteon, 8 mg sodium chloride 0.9%, 0.5-20 mL traZODone, 50 mg Assessment/Plan ASSESSMENT AND PLAN 28M with PMH HIV (poor ART adherence), hx neurosyphillis, prior TIAs, MAURI (amphetamine), and BPD p/w RLE weakness/numbness and vision changes, found to have b/l pyelonephritis w/ GNB bacteremia #Bilateral pyelonephritis #GN and GP bacteremia Presented with 2d of dysuria and urinary frequency. UA with >50 WBC, 3+ LE, +nitrites. CT showing bilateral (L > R) pyelonephritis; US kidney with possibly developing abscess. 1/2 BCx growing GN bacilli, presumptive E. Coli and another 1/2 BCx growing BCx grew G+ cocci in clusters, possibly staph. UCx grew EColi. - Cefepime 2g q8h, switched to CTX on 07/06 - Vanc q12, per patient he uses IVDU - consulted IR to discuss drainage - no fluid to drain, size is between an abscess and focal inflammation, if no improve on abx, re-scan in 3-4 days. - APAP PRN for fever - Follow admission BC susceptibilities - New repeat BC - NGTD #MAURI #Meth withdrawals Infectious screening as above. Per patient, uses meth regularly every weekend, and last used a weekago, thinks he is withdrawing a bit. Has mild tremors and yawning. UDS + amphetamines. Admits to IVDU meth. Also states that he drinks 6 shots/day but last drink tyrone a week ago. - C/s chemical dependency - UDS - atarax prn #HIV with hx poor adherence to ART CD4 count 132 (4%) this admit. Follows at [facility]. Hepatitis panel, G/C/Trich neg - Cont Biktarvy, Bactrim for PJP ppx - HIV RNA, genotypic resistance panel #R superior vision defect On admission, reported new decreased vision in superior quadrant of R eye. Presented to ED for sameyesterday. Evaluated by Neuro with some c/f CRAO or structural abnormality given hx of neurosyphilis. Eval by Ophtho during this admission., who felt subjective complaints did not correlate to objective exam findings but patient poorly participating in exam d/t intoxication. Notably, optho exam from 06/15 without evidence of ocular syphilis. bMRI s/f sequela of HIV encephalopathy, similar to prior imaging. Orbital sequences with artifact, rads recommend repeating - Per rads, re-ordered MRI orbit - OP Ophtho f/u - Refresh eye drops TID as per ortho #Depression with intermittent suicidal ideation #Hx of malingering He has 20+ visits for SI in the past year, has been evaluated multiple times in the past by psych and found to have chronic low-level SI without benefit from hospitalization. Recently hospitalized 05/2024 for reported benzo overdose (ingested 27 2mg tabs xanax) however UDS was negative, psychiatry at that time consulted: Overall, this patient is at chronic high risk of harm to self and others due to non-modifiable risk factors, and he does not have acute risk factors that can be modified by aninpatient psych admission. He has been admitted to psych multiples times without clear benefit; noted known pattern of repeated, manipulative attempts to remain hospitalized in order to obtain shelt er . Unclear what patient's psych regimen should be at this time. Last admit, notes document plan to hold off on re-starting psychotropic medications per Psych recommendation but Discharge Summary lists all of the following meds as active: aripiprazole, bupropion, buspirone, duloxetine, hydroxyzine, trazodone. No Med Dispense hx. Pt only reporting that he is supposed to be taking cymbalta but he has been not been taking. Per patient, he stopped taking psych meds due to SI 2 weeks ago, open to re-starting. - hold all psychiatric meds - OP psych follow-up #Hx neurosyphilis: Chart history of dx 2017 and 2023, most recently treated with 14d IV PCN (09/2023). Syphilis serologies remain persistently elevated. RPR titer this admit stable from prior at 1:32.LP 06/15 with bland serologies. #RLE weakness; #Chronic peripheral neuropathy Evaluated by Neuro during ED presentation yesterday, most likely chronic due to similar complaints on prior presentations. -PT/OT ordered - Diet: Adult Diet Regular - DVT PPX: Lovenox - Access:PIVs - PT/OT: consults placed - CODE STATUS: Full Code - Dispo: tbd EMERGENCY CONTACT Contact: Extended Emergency Contact Information Primary Emergency Contact: Sarah Simpson Mobile Relation: Mother Dorothy Catalan Wes Martinez MD Internal Medicine, PGY-1 Please check Amion to find on-call list. Generally, the medicine teams are here until 4:30 PM M-F when not on-call. call center manager days, teams are here until 8 PM. On non-call weekend days, check Amion for the on-call team who are likely providing cross-coverage. Cosigned by Cari Steven MD at 07/09/2024 5:04 PM [facility] [employer] [facility] Associated attestation - Cari Steven MD - 07/09/2024 5:04 PM [employer] Attending Documentation I have seen and examined the patient on 07/06/24. I agree with the findings and plan of care as documented in the resident's/fellow's note. Can de-escalate to ceftriaxone. He reports use of IV substances so will keep vancomycin on board until GPCs speciate Supplementary Attestation Today, I am treating the patient for pyelonephritis which is in severe exacerbation, progression, or experiencing treatment side effects as evidenced by bacteremia, as described in the note. The patient is being intensively monitored for drug toxicity from vancomycin by checking vanc levels and kidney function. Cari Steven MD * Caitlyn Bravo, PT - 07/05/2024 11:17 AM CST Physical Therapy 07/05/24 1117 General PT Missed Visit Reason Patient declined [facility] [employer] * Cristobal Garland OT - 07/05/2024 8:57 AM CST Occupational Therapy OCCUPATIONAL THERAPY INITIAL DISCHARGE NOTE NOTE: This is a summary note of the krishna components of the evaluation session. For full details, review chart for all flowsheets documented on by this occupational therapist on this date. Vital signs documented in vital signs flowsheet. Assessment/Plan: Patient denies need for further occupational therapy at this time and reports/demonstrates functional status with ADLs/IADLs. Patient will be discharged from occupational therapy. Please re-refer if status changes. Subjective: Patient reports the following: no significant change in strength or range of motion in arms and/or legs. Patient denies: new dizziness with activity or position changes or any significant changes in balance. Patient reports no significant difficulty with performance of ADLs/IADLs compared to baseline and no concerns with home accessibility or support upon return to home. Patient reports no concerns for getting out of bed and mobilizing during this hospital stay. Objective: no new functional limitations observed in upper extremities 07/05/24 0857 General Chart Reviewed Yes Session Type Evaluation OT Received On 07/05/24 Safe Environment Patient found in supine;Arm band checked;Gait belt utilized for all out of bed mobility Subjective Agreeable to Therapy Family/Caregiver Present No Occupational Therapy-Patient Goal Denies acute OT goal Precautions Precautions Fall risk Home Living Type of Home Other (Comment) (Retirement) Home Layout One level Home Access Level entry Bathroom Shower/Tub Walk-in shower with threshold Bathroom Toilet Standard Home Mobility Equipment-Available 4-Wheeled walker Home Mobility Equipment-Currently Using None Prior Function Level of Iron Independent with ADLs;Independent functional transfers;Independent with ambulation;Independent with homemaking with ambulation Lives With Other (Comment) (other [facility] residents) Receives Help From Facility staff (parts representative) Driving No Mode of Transportation Driven by others ([employer]) ADL Assistance Independent Instrumental ADL (IADL) Assistance Independent 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 Fall within the last 6 months Yes Fall within the last 6 months comment 10 2/2 falling when not wearing AFO Grooming Grooming: Where assessed Standing at sink Grooming: Level of assistance Modified independent Grooming: Assistance with Standing with assistive device Toileting Toileting: Where assessed Toilet Toileting: Level of assistance Modified Independent Toileting: Assistance with Use of adaptive equipment Room Mobility Room Mobility: Where assessed Bed>toilet>sink>chair Health Management: Equipment Walker Room Mobility: Level of Assistance Modified Independent Toilet Transfers Toilet Transfer From Bed Toilet Transfer Type To Toilet Transfer to Standard toilet Toilet Transfer Technique Ambulating Toilet Transfer: Equipment Wheeled walker Toilet Transfers Modified independence Pain Assessment Pain Assessment 0-10 Pain Score 6 Pain Location Flank Pain Orientation Right Pain Interventions RN Notified (VICTOR MANUEL Aragon) Vision-Basic Assessment Current Vision Wears glasses all the time Cognition Arousal/Alertness Alert;Appropriate responses to stimuli Attention Span Distractability;Controlled environment Memory Appears intact Current communication Appears Intact Orientation Oriented X4 (person, place, time, situation) Following Commands Follows all commands and directions without difficulty Safety Judgment Good awareness of safety precautions Awareness of Errors Good awareness of errors made Insight Fully aware of deficits Problem Solving Able to problem solve independently Compliance/Behavior Easy to engage Short Blessed Test What year is it now? 0 What month is it now? 0 Repeat this name and address after me Calvin Paulino [address] [place] [address] Without looking at the clock, tell me what time it is 0 Count aloud backwards from 20-1 0 Say the months of the year backwards in reverse order 0 Repeat the name and address I asked you to remember 0 Short Blessed Total Score 0 Short Blessed Comments WFL Sensation Numbness/Tingling No (in UEs) Coordination Fine Motor WFL Serial Opposition WFL Hand Preference Hand Preference Right Hand Function Coordination Functional Gross Grasp Functional Balance Tests Balance Tests Yes Tinetti Sitting Balance 1 Arises 1 Attempts to Arise 2 Immediate Standing Balance (First 5 Seconds) 1 Standing Balance 1 Nudged 2 Eyes Closed 1 Turned 360 Degrees: Steadiness 0 Turned 360 Degrees: Continuity of Steps 0 Sitting Down 1 Balance Score 10 Bed Mobility 1 Bed Mobility From 1 Supine Bed Mobility Type 1 To Bed Mobility to 1 Edge of bed Level of Assistance 1 Independent Transfer 1 Transfer From 1 Sit Transfer Type 1 To and from Transfer to 1 Stand Technique 1 Sit to stand;Stand to sit Transfer Device 1 Wheeled walker Transfer Level of Assistance 1 Modified Independent Trials/Comments 1 use of UEs for force production RUE Assessment RUE Assessment WFL LUE Assessment LUE Assessment WFL Daily Activity - 6 Clicks Putting on and taking off regular lower body clothing 4 Bathing 4 Toileting 4 Putting on and taking off upper body clothing 4 Personal Grooming 4 Eating Meals 4 Total Score (range 6-24) 24 Score Interpretation 57.54 Safe Environment End of Therapy Session Safe Environment End of Therapy Session Patient left in chair;Call light within reach;Overbed tablewithin reach Plan Plan Discharge Recommendation/Plan OT Recommendation Home with intermittent assist;No further OT indicated OT Frequency during current admission One-time visit (Discharge from this service) OT Evaluation Complete Yes OT Time Calculation OT Start Time 856 OT Stop Time 922 OT Time Calculation (min) 26 min Education: Education Topic: Role of OT: purpose of OT in the hospital setting and plan of care, Safety: duringself-care and functional transfers, and ADL training: proper safety adaptation and remediation techniques during self care or transfers, proper use of assistive devices Who: patient Readiness: Acceptance Method: Explanation Response: Verbalizes Understanding Patient in agreement with plan and instructed in safe mobility during ADLs. Patient's questions related to occupational therapy addressed. Patient left in safe position in room with call light withinreach. [employer] * Dorothy Martinez MD - 07/05/2024 1:01 AM CST MEDICINE DAILY PROGRESS NOTE Date of Admission: 07/04/2024 Date of Service: 07/05/24 CARE TEAM Patient: Phil Chase [id number] Service: Medical Primary Care Physician: Mady Sullivan MD Subjective BRIEF HPI Phil Chase is a 28 y.o. male with PMH significant for HIV (not taking ART therapy 2/2 depression), hx TIAs, MAURI (amphetamine), hx neurosyphillis, transverse myelitis, peripheral neuropathy, borderline personality disorder, and malingering who presented with L. Side flank pain + associated dysuria for the past three days along with right leg weakness/numbness and vision changes. INTERVAL HISTORY Adapted from Dr. Holman's HPI on 07/04: Phil Chase is a 28 y.o. male with PMH significant for HIV (not taking ART therapy 2/2 depression), hx TIAs, MAURI (amphetamine), hx neurosyphillis, transverse myelitis, and borderline personality disorder, who presented with L. Side flank pain + associated dysuria for the past three days alongwith right leg weakness/numbness and vision changes. He reports that he came in due to dysuria, urinary urgency, and urinary incontinence over the past few days. He denies any fevers/chills at home. Also denying any SOB, CP, or penile discharge. He also reports a few days of blurriness in right eye which is new for him. He denies any eye pain/redness/discharge. He also reports right leg weakness for 2 days, says it is the same location as his weakness after his recent TIA a month ago at [facility]. He reports that he has not taken hismedications in the last month due to depression and suicidal ideation. He has no issues with refills, however [facility] a [facility] and has some difficulty in getting to appointments. Of note, the patient came to the ED on 07/03/24 for blurry vision (present before he used methamphetamine) and R. Arm numbness, which developed after he used methamphetamine. Stroke code was called; NIHSS was 5, CTH and CTA normal. Pt was a NO GO for acute intervention. Exam was notable for new blurriness of vision in R. Eye superior quadrant; neuro recommended MRI brain and orbits w/ and w/o contrast along with optho consult, d/t concern for CRAO vs structural findings given hx of neurosyphilis. Optho saw patient (notably patient was intodication on exam) and did not recommend any acute interventions, recommended obtaining MRIb. His neuro exam on 07/04 was also notable for L. Nystagmus (lik jorge iso of methamphetamine use) along w/ RLE weakness and paresthesias, which have been observed inprior presentations. Unfotrunately, the patient left AMA due to family emergency so came back todaywith similar symptoms. Additionally, pt has been here 2 times in past week for same symptoms of numbness and tinging on R.Side of his body, which have been attributed to his chronic peripheral neuropathy. Pt has had unreliable accounts of methamphetamine use, per chart review. Per chart review, from Dr. Granados's note on 06/06: Patient has a history of possible neurosyphilis 09/2023 with RRP 1:1024. LP done at that time had 10 nucleated cells, VDRL negative. He was treated with 14 days of IV penicillin while inpatient. Admission 04/08-04/10 RPR titer was 1:64, which was chronically and stably elevated suggesting of a treated infection. However, he was re-tested 04/14 with titer subsequently increasing to 1:512. No clear rec ord of treatment for this elevated titer. Patient stated he did have a recent sexual partner who told him he was positive for syphilis. Repeat RPR this admission 1:32. Likely prior 1:512 was variability in the RPR assay reading as opposed to reinfection or could have been a response to repeat treatment (if provided). OBJECTIVE On arrival to the ED, the patient's vitals were T 98.4, HR 89, RR 20, BP 98/59. He spiked a fever at 10 am to 101.5 and again around 3:30 to 104 degrees. Labs notable for: CBC w/ WBC to 7.1 UA with Nitrites, 3+ LEs, >50 WBCs, 11-20 RBCs, Bacteria 4+ RPR Titer was 1:32 CMP unremarkable Lactate of 0.6 CD4 count of [address] A/P notable for perinephric stranding, urothelial thickening, and periureteral stranding on both sides-- concerning for bilateral pyelonephritis and pyelitis. He had an MRIbrain w/ orbitsnotable for periventricular T2 Flair hyperintensities + volume loss, likely 2/2 HIV Encephalopathy.There was some artifact on the orbital sequences, which will need to be repeated. He also had an USKidney notable for mixed cystic and solid lesion which may represent a developing abscess, which is likely not amenable to drainage. In the ED, he received the following meds: Dilaudid 0.5, Morphine 4mg CTX 1g, Bactrim, Cefe 2g Biktarvy On my exam, the patient reported he was not feeling well, endorsing fever/chills. He notes his R. Eye superior quadrant blurriness is still present. Objective VITALS / I&Os Patient Vital Signs for the past 24 hrs: BP MAP (mmHg) Temp Temp src Pulse Resp SpO2 Height Weight 07/05/24 0620 -- -- -- Oral -- -- -- -- -- 07/05/24 0200 -- -- -- Axillary -- -- -- -- -- 07/04/24 2215 -- -- -- -- -- -- -- 182.9 cm (6' 0.01 ) 68.7 kg (151 lb 8 oz) 07/04/24 213 111/75 84 -- -- 60 -- 99 % -- -- 07/04/242099 109/64 76 -- -- 81 -- 98 % -- -- 07/04/242029 108/51 63 -- -- -- -- -- -- -- 07/04/241999 11251 65 -- -- 85 -- 97 % -- -- 07/04/24 1820 107/65 72 37.4 ??C (99.3 ??F) -- 105 -- 99 % -- -- 07/04/24 1600 -- -- (!) 39.9 ??C (103.9 ??F) Oral -- -- -- -- -- 07/04/24 1530 -- -- (!) 40 ??C (104 ??F) Oral -- -- -- -- -- 07/04/24 1300 117/68 80 -- -- 60 18 99 % -- -- 07/04/24 1230 141/66 89 -- -- 58 18 98 % -- -- 07/04/24 1200 115/52 71 -- -- 74 18 98 % -- -- 07/04/24 1146 111/56 72 37.7 ??C (99.8 ??F) Oral 76 18 96 % -- -- 07/04/24 1130 -- -- -- -- 82 18 94 % -- -- 07/04/24 1100 108/49 65 -- -- 81 18 95 % -- -- 24hr Min/Max: Temp Min: 37.4 ??C (99.3 ??F) Max: 40 ??C (104 ??F) Pulse Min: 58 Max: 105 BP Min: 107/65 Max: 141/66 Resp Min: 18 Max: 18 SpO2 Min: 94 % Max: 99 % Intake/Output Summary (Last 24 hours) at 07/05/2024 1052 Last data filed at 07/05/2024 0425 Gross per 24 hour Intake -- Output 250 ml Net -250 ml PHYSICAL EXAM Constitutional: Lying on his side, chills noted HEENT:. Normal conjunctiva, no scleral icterus, EOMI. Neck: Supple, no jugular venous distension present Cardio: Normal rate, regular rhythm. No murmurs or extra heart sounds. Pulm/Chest: Normal respiratory effort and breath sounds. No wheezes or rales. Abd: Soft, moderately tender in all four quadrants. Guarding noted. Normoactive bowel sounds. No rebound. CVAT noted on R. Side. MSK/Extremities: No obvious deformities. No lower extremity edema. Neuro: AAO to person, place, and time; moving all extremities spontaneously. Refusing complete neuro exam. Skin: Skin is warm and dry. Could not perform full skin exam. Psych: Mood and affect normal. Lab/Radiology/Diagnostic Review: CBC Recent Labs Lab Units 07/04/24213807/04/24100607/03/24 0514 07/03/24 0509 WBC K/cumm 8.7 7.1 -- 5.3 HEMOGLOBIN, POC g/dL -- -- 12.2* -- HEMOGLOBIN g/dL 10.1* 10.9* -- 11.6* HEMATOCRIT % 31.6* 34.3* -- 36.8* HEMATOCRIT POC % -- -- 37.0* -- PLATELETS K/cumm 260 262 -- 183 Chem Recent Labs Lab Units 07/05/24 0555 07/04/24213807/04/24100607/03/24 0513 07/03/24 0509 SODIUM mmol/L -- 138 142 -- 137 POTASSIUM PLASMA mmol/L -- 3.7 3.8 -- 4.7 CHLORIDE mmol/L -- 104 109 -- 102 CO2 mmol/L -- 27 23 -- 26 ANIONGAP mmol/L -- 7 10 -- 9 BUN SERUM mg/dL -- 14 13 -- 16 CREATININE mg/dL -- 1.23 1.05 -- 1.20 GLUCOSE mg/dL -- 106 106 -- 133 POC GLUCOSE MONITOR mg/dL 113 -- -- < > -- CALCIUM mg/dL -- 8.1* 8.7 -- 8.8 MAGNESIUM mg/dL -- 1.7 -- -- -- < > = values in this interval not displayed. LFTs Recent Labs Lab Units 07/04/24 1007 07/03/24 0509 ALK PHOS Units/L 88 80 BILIRUBIN TOTAL mg/dL 0.3 0.3 TOTAL PROTEIN g/dL 7.2 8.3 ALT Units/L 41 46 AST Units/L 54* 102* Coags Recent Labs Lab Units 07/03/24 0517 07/03/24 0509 APTT sec -- 30 INR 2.0* -- Urine Analysis Recent Labs Lab Units 07/04/24 1007 COLOR U Yellow CLARITY U Cloudy* SPEC GRAV U 1.012 PH, URINE 6.5 PROTEIN UR QL 1+* GLUCOSE URQL Negative KETONES UR Negative BLOOD UR 2+* NITRITE UR Positive* LEUKOCYTE ESTERASE UR 3+* ABG Micro: Susceptibility data from last 90 days. Collected Specimen Info Organism 07/04/24 Urine Escherichia coli IMAGING US Kidney Complete Result Date: 07/04/2024 Narrative: EXAMINATION: COMPLETE RENAL SONOGRAM HISTORY: Left-sided flank [...] artifact. Bladder: The urinary bladder is normal Impression: Mixed cystic and solid lesion in the [...] it. Electronically signed by: Yeimy Billingsley M.D. MRI Brain Incl Orbits W WO Contrast Result Date: 07/04/2024 Narrative: EXAMINATION: 1. Magnetic resonance imaging (MRI) of [...] is likely related to artifact/coil positioning. Sequences areto be repeated later on 07/04/2024. Both globes [...] normal. BRAIN: There is cerebral volume loss outof proportion for patient's age. There are unchanged [...] artery. There is no abnormal contrast enhancement. Impression: No MR evidence of acute intracranial abnormality. [...] it. Electronically signed by: Gwendolyn Gonzalez M.D. CT Abdomen Pelvis W Contrast Result Date: 07/04/2024 Narrative: EXAMINATION: Computed tomography of the abdomen and [...] focal hepatic lesion. The gallbladder is normal. Thespleen and pancreas are normal. The adrenal glands [...] inguinal hernia repair. No suspicious osseous lesion. Impression: Bilateral pyelonephritis and pyelitis. Electronically signed by: Juan Mason M.D. CTA/CTP Rapid Stroke (C) Result Date: 07/03/2024 Narrative: EXAMINATION: 1. Computed tomography angiography (CTA) of [...] was then obtained from the aortic arch tothe vertex following the uneventful administration of intravenous contrast. 3D images were generated on a dedicated workstation. CT perfusion of the brain was performed with intravenous contrast using a separate data acquisition. The data was transmitted to a separate workstation for processing by RAPID software ([employer]) to produce automated calculations of the estimated [...] ventricles. There are unchanged areas of periventricular hypoattenuation.Right sphenoid sinus retention cyst. There is no [...] occlusion or significant stenosis R M2 branches: noocclusion or significant stenosis R A2: no occlusion or significant stenosis Posterior circulation:L Vertebral Artery: no occlusion or significant stenosis. L vertebral artery dominant R Vertebral Ar elaine: no occlusion or significant stenosis Basilar Artery: no occlusion or significant stenosis L DISCHARGE DOOR OPERATOR: no occlusion or significant stenosis R DISCHARGE DOOR OPERATOR: no occlusion or significant stenosis No cerebral [...] volume (Tmax > 6 sec): 0 mL Impression: 1. No CT evidence of stroke. 2. [...] it. Electronically signed by: Lio Huynh MD ECG 12 lead Result Date: 07/03/2024 Narrative: Chas Friedman MD 07/03/2024 8:47 AM ECG 12 lead Date/Time: 07/03/2024 8:45 AM Performed by: Chas Friedman MD Authorized by: Rafa Billings MD Rate: ECG rate: 69 beats per minute ECG rate assessment: normal Rhythm: Rhythm: sinus rhythm Ectopy: Ectopy: none QRS: QRS axis: Normal QRS intervals: Normal Conduction: Conduction: normal ST segments: ST segments:Normal T waves: T waves: normal Previous ECG: Previous ECG: Compared to current Date of previous EC06/26/2024 Similarity: No change Interpretation: Interpretation: No significant change RecommendedFollow-up: Recommended follow up: further workup in the ED ECG 12 lead Result Date: 06/26/2024 Narrative: Chas Friedman MD 06/26/2024 2:11 PM ECG 12 lead Date/Time: 06/26/2024 2:10 PM Performed by: Chas Friedman MD Authorized by: Chas Friedman MD Rate: ECG rate: 54 beatsper minute ECG rate assessment: bradycardic Rhythm: Rhythm: sinus bradycardia Ectopy: Ectopy: none QRS: QRS axis: Normal QRS intervals: Normal Conduction: Conduction: normal ST segments: ST segments:Normal T waves: T waves: normal Other findings: Other findings: early repolarization Previous ECG: Previous ECG: Compared to current Date of previous EC06/02/2024 Similarity: No change Interpretation: Interpretation: No significant change Recommended Follow-up: Recommended follow up: further work up in the ED XR Chest PA Lateral 2 Views Result Date: 06/26/2024 Narrative: EXAMINATION: 2 view chest radiograph Impression: Comparison is made to 06/02/2024 x-ray. The lungs are normal in appearance without pleural effusion or pneumothorax. The cardiomediastinal silhouette is normal. Dictated by: Segundo Araiza M.D. (Ramanan) The radiology attending physician has personally reviewed this study, and had reviewed and/or edited this written report and agrees with it. Electronically signed by: Orly Jimenez M.D. CT Head WO Contrast Result Date: 06/06/2024 Narrative: EXAMINATION: CT head without contrast HISTORY: History of HIV, neck stiffness and blurryvision TECHNIQUE: CT of the head was performed with images acquired from skull base to vertex without intravenous contrast. COMPARISON: 04/28/2024 FINDINGS: Hypodensity in the right anterior temporallobe immediately anterior to the mastoid air cells seen on series 2, image 21 is most likely streakartifact but cannot exclude small parenchymal lesion. Unchanged diffuse cerebral atrophy, out of proportion for age. Hypodensity around bilateral frontal horns. There is no acute intracranial hemorrhage. Ventricles are of normal size and morphology. No mass effect or midline shift is present. The gr ay-white matter differentiation is normal. The visualized portions of the orbits are normal. The visualized portions of the mastoids are normal. Unchanged bilateral maxillary sinus disease. No fractures are identified. Mildly enlarged right cervical lymph nodes. Impression: 1. No acute intracranial hemorrhage. 2. Brain atrophy out proportion for age, but unchanged from prior. 3. Partially visualized incidental borderline right cervical lymphadenopathy, whichis nonspecific and similar to that seen on prior cervical spine CT from 04/28/2024. Recommend correlation with exam and consider neck CT for further evaluation. 4. Hypodensity in the right anterior temporal lobe immediately anterior to the mastoid air cells is most likely streak artifact, but cannotexclude small parenchymal lesion. Recommend brain MRI for further evaluation. Dictated by: Yee Oglesby M.D. The radiology attending physician has personally reviewed this study, and had reviewed and/or edited this written report and agrees with it. Electronically signed by: Maame Ruiz M.D. CURRENT MEDICATIONS Scheduled Medications: dsscrdziqzi-txhakqzdwrpnm-mpbsavgar, 1 tablet, oral, Daily cefepime, 2,000 mg, intravenous, Q8H KIMBERLEY [Held by Provider] DULoxetine DR, 60 mg, oral, Daily enoxaparin, 40 mg, subcutaneous, Daily-2100 polyvinyl alcohol-povidone, 1 drop, each eye, TID sodium chloride 0.9%, 0.5-20 mL, intra-catheter, Q8H KIMBERLEY (ALT) sulfamethoxazole-trimethoprim, 160 mg of trimethoprim, oral, Once per day on Sunday vancomycin, 15 mg/kg, intravenous, Q12H PRN Medications: acetaminophen, 1,000 mg, 1,000 mg at 07/05/24 0427 sodium chloride 0.9%, 30 mL hydrOXYzine, 25 mg influenza trivalent [id number], 0.5 mL ramelteon, 8 mg sodium chloride 0.9%, 0.5-20 mL traZODone, 50 mg Assessment/Plan ASSESSMENT AND PLAN 28M with PMH HIV (poor ART adherence), hx neurosyphillis, prior TIAs, MAURI (amphetamine), and BPD p/w RLE weakness/numbness and vision changes, found to have b/l pyelonephritis w/ GNB bacteremia #Bilateral pyelonephritis #GN and GP bacteremia Presented with 2d of dysuria and urinary frequency. UA with >50 WBC, 3+ LE, +nitrites. CT showing bilateral (L > R) pyelonephritis; US kidney with possibly developing abscess. 1/2 BCx growing GN bacilli, presumptive E. Coli and another 1/2 BCx growing BCx grew G+ cocci in clusters, possibly staph. - Cefepime 2g q8h - Start vanc q12 - urine cultures - ngtd - consulted IR to discuss drainage - no fluid to drain, size is between an abscess and focal inflammation, if no improve on abx, re-scan in 3-4 days. - APAP PRN for fever #HIV with hx poor adherence to ART CD4 count 132 (4%) this admit. Follows at [facility]. Hepatitis panel, G/C/Trich neg - Cont Biktarvy, Bactrim for PJP ppx - HIV RNA, genotypic resistance panel #R superior vision defect On admission, reported new decreased vision in superior quadrant of R eye. Presented to ED for sameyesterday. Evaluated by Neuro with some c/f CRAO or structural abnormality given hx of neurosyphilis. Eval by Ophtho during this admission., who felt subjective complaints did not correlate to objective exam findings but patient poorly participating in exam d/t intoxication. Notably, optho exam from 06/15 without evidence of ocular syphilis. bMRI s/f sequela of HIV encephalopathy, similar to prior imaging. Orbital sequences with artifact, rads recommend repeating - Per rads, re-order MRI orbit - OP Ophtho f/u - Refresh eye drops TID as per ortho #Depression with intermittent suicidal ideation #Hx of malingering He has 20+ visits for SI in the past year, has been evaluated multiple times in the past by psych and found to have chronic low-level SI without benefit from hospitalization. Recently hospitalized 05/2024 for reported benzo overdose (ingested 27 2mg tabs xanax) however UDS was negative, psychiatry at that time consulted: Overall, this patient is at chronic high risk of harm to self and others due to non-modifiable risk factors, and he does not have acute risk factors that can be modified by aninpatient psych admission. He has been admitted to psych multiples times without clear benefit; noted known pattern of repeated, manipulative attempts to remain hospitalized in order to obtain shelt er . Unclear what patient's psych regimen should be at this time. Last admit, notes document plan to hold off on re-starting psychotropic medications per Psych recommendation but Discharge Summary lists all of the following meds as active: aripiprazole, bupropion, buspirone, duloxetine, hydroxyzine, trazodone. No Med Dispense hx. Pt only reporting that he is supposed to be taking cymbalta but he has been not been taking. Per patient, he stopped taking psych meds due to SI 2 weeks ago, open to re-starting. - hold all psychiatric meds - OP psych follow-up #MAURI: Infectious screening as above. Consider chemical dependency consult. Per patient, uses meth regularly every weekend, and last used a week ago, thinks he is withdrawing a bit. Has mild tremors and yawning. - UDS - atarax prn #Hx neurosyphilis: Chart history of dx 2017 and 2023, most recently treated with 14d IV PCN (09/2023). Syphilis serologies remain persistently elevated. RPR titer this admit stable from prior at 1:32.LP 06/15 with bland serologies. #RLE weakness; #Chronic peripheral neuropathy Evaluated by Neuro during ED presentation yesterday, most likely chronic due to similar complaints on prior presentations. -PT/OT ordered - Diet: Adult Diet Regular - DVT PPX: Lovenox - Access:PIVs - PT/OT: consults placed - CODE STATUS: Full Code - Dispo: tbd EMERGENCY CONTACT Contact: Extended Emergency Contact Information Primary Emergency Contact: Sarah Simpson Mobile Relation: Mother Dorothy Martinez MD Internal Medicine, PGY-1 Please check Amion to find on-call list. Generally, the medicine teams are here until 4:30 PM M-F when not on-call. call center manager days, teams are here until 8 PM. On non-call weekend days, check Amion for the on-call team who are likely providing cross-coverage. Cosigned by Cari Steven MD at 07/09/2024 5:01 PM [employer] [facility] [employer] [facility] [employer] [facility] [employer] [facility] [employer] [facility] [employer] Associated attestation - Cari Steven MD - 07/09/2024 5:01 PM [employer] Attending Documentation I have seen and examined the patient on 07/05/24. I agree with the findings and plan of care as documented in the resident's/fellow's note. Pt here with pyelonephritis complicated by sepsis and bacteremia. Sepsis now resolved. Evolving renal abscess too small to drain Supplementary Attestation Today, I am treating the patient for pyelonephritis which is in severe exacerbation, progression, or experiencing treatment side effects as evidenced by bacteremia with renal abscess, as described inthe note. Independently interpreted BMP and CBC which shows mild stable anemia. Discussed management of drainage of renal abscess with IR. Cari Steven MD documented in this encounter H&P Notes * Samantha Holman MD - 07/04/2024 12:09 PM CST HISTORY AND PHYSICAL Date of Admission: 07/04/2024 Date of Service: 07/04/24 CARE TEAM Patient: Phil Chase Primary Care Physician: Mady Sullivan MD Room: [facility] [place] SUBJECTIVE CHIEF COMPLAINT: Chief Complaint Patient presents with Flank Pain HISTORY OF PRESENT ILLNESS: Phil Chase is a 28 y.o. male with PMH significant for HIV (not taking ART therapy 2/2 depression), hx TIAs, MAURI (amphetamine), hx neurosyphillis, and borderline personality disorder, who presented with right leg weakness/numbness and vision changes. He reports that he came in due to dysuria, urinary urgency, and urinary incontinence over the past few days. He denies any fevers/chills at home. He also reports a few days of blurriness in right eyewhich is new for him. He denies any eye pain/redness/discharge. He also reports right leg weakness for 2 days, says it is the same location as his weakness after his recent TIA a month ago at [facility]. He reports that he has not taken his medications in the last month due to depression and suicidal ideation. He has no issues with refills, however he lives in a usp and has some difficulty in getting to appointments. PAST MEDICAL HISTORY: Past Medical History: Diagnosis Date Anal warts Borderline personality disorder (CMS/HCC) ([facility]) Depression prior suicide attempts (10/2023, 02/2024) Depression with suicidal ideation HIV (human immunodeficiency virus infection) (HCC) HIV (human immunodeficiency virus infection) ([facility]) Dx 2018 Methamphetamine use disorder, moderate, in early remission (HCC) Neuropathy (CMS/HCC) PTSD (post-traumatic stress disorder) Syphilis (acquired) Rx'd with 3 IM doses of Penicillni per patient PAST SURGICAL HISTORY: Past Surgical History: Procedure Laterality Date LUMBAR PUNCTURE WO INJECTION, DIAGNOSTIC N/A 10/12/2023 FAMILY HISTORY: Family History Problem Relation Age of Onset Suicide Completion Father Other (overdose) Father Hypertension Maternal Grandmother Diabetes type II Maternal Grandmother SOCIAL HISTORY: - denies alcohol use, smoking, or IVDU. - reports history of meth use, last used a week ago - currently lives in a usp HOME MEDS: HOME MEDICATIONS : ARIPiprazole (ABILIFY) 10 mg tablet benzonatate (TESSALON) 100 mg capsule syzqueqalnz-arkrbtlnaoiiz-vxodbqvtb (BIKTARVY) 50-200-25 mg tablet buPROPion XL (WELLBUTRIN XL) 150 mg 24 hr tablet doxepin (SINEquan) [address] (CYMBALTA) 60 mg capsule gabapentin (NEURONTIN) 100 mg capsule hydrOXYzine (ATARAX) 50 mg tablet ibuprofen (ADVIL,MOTRIN) 600 mg tablet loperamide (IMODIUM) 2 mg capsule sulfamethoxazole-trimethoprim (BACTRIM DS) 800-160 mg per tablet traZODone (DESYREL) 50 mg tablet ALLERGIES: No Known Allergies REVIEW OF SYSTEMS: ROS All other systems were reviewed and are negative except as noted above in the HPI. OBJECTIVE VITALS / I&Os Arrival Vitals: Arrival Vitals [07/04/24 0748] Temp 36.9 ??C (98.4 ??F) Pulse 89 Resp 20 BP 98/59 SpO2 93 % Temp src Oral Heart Rate Source Patient Position BP Location FiO2 (%) Most Recent : Vitals: 07/04/24 1600 BP: Pulse: Resp: Temp: (!) 39.9 ??C (103.9 ??F) SpO2: 24hr Min/Max: Temp Min: 36.9 ??C (98.4 ??F) Max: 40 ??C (104 ??F) Pulse Min: 58 Max: 91 BP Min: 98/59 Max: 144/74 Resp Min: 18 Max: 20 SpO2 Min: 93 % Max: 99 % No intake or output data in the 24 hours ending 07/04/24 9306 CURRENT MEDICATIONS Scheduled Medication: Scheduled Medications Medication Dose Route Frequency oqpyylmilro-rrtlkiqdsbkho-rotukymwq (BIKTARVY) 50-200-25 mg per tablet 1 tablet 1 tablet oral Daily DULoxetine DR (CYMBALTA) extended release capsule 60 mg 60 mg oral Daily enoxaparin (LOVENOX) syringe 40 mg 40 mg subcutaneous Daily-2100 sodium chloride 0.9% flush 0.5-20 mL 0.5-20 mL intra-catheter Q8H KIMBERLEY (ALT) sulfamethoxazole-trimethoprim (BACTRIM DS) 800-160 mg per tablet 160 mg of trimethoprim 160 mg of trimethoprim oral Once per day on Sunday PRN Medication: PRN Medications Medication Dose Route Frequency Last Admin acetaminophen (TYLENOL) tablet 1,000 mg 1,000 mg oral Q8H PRN 1,000 mg at 07/04/24 1558 Carrier Fluids for Secondary Infusion - 0.9% Sodium Chloride 30 mL intravenous PRN ramelteon (ROZEREM) tablet 8 mg 8 mg oral Nightly PRN sodium chloride 0.9% flush 0.5-20 mL 0.5-20 mL intra-catheter PRN traZODone (DESYREL) tablet 50 mg 50 mg oral Nightly PRN PHYSICAL EXAM Physical exam: Gen: uncomfortable due to pain, in moderate distress HEENT: EOMI, no LAD CV: RRR, no m/r/g Pulm: LCTAB, normal WOB Abd: soft, non-distended. Moderately tender. Normal BS. Neuro: AxOx4, moving all extremities Extr: no significant bruising or edema LABS Recent Results (from the past 24 hours) CBC with auto differential Collection Time: 07/04/24 10:07 AM Result Value Ref Range WBC 7.1 3.8 - 9.9 K/cumm Hgb 10.9 (L) 13.0 - 17.5 g/dL Hct 34.3 (L) 38.9 - 50.3 % Plt 262 150 - 400 K/cumm MPV 10.3 9.1 - 12.3 fL RBC 4.50 4.30 - 5.80 M/cumm MCV 76.2 (L) 81.3 - 96.4 fL MCH 24.2 (L) 27.1 - 33.3 pg MCHC 31.8 (L) 32.3 - 35.7 g/dL RDW CV 16.9 (H) 11.1 - 14.9 % RDW SD 46.5 35.7 - 48.1 fL NRBC abs 0.00 0.00 - 0.01 K/cumm Comprehensive metabolic panel Collection Time: 07/04/24 10:07 AM Result Value Ref Range Sodium 142 135 - 145 mmol/L Potassium, pl 3.8 3.3 - 4.9 mmol/L Chloride 109 97 - 110 mmol/L CO2 23 22 - 32 mmol/L Anion gap 10 2 - 15 mmol/L BUN 13 6 - 25 mg/dL Creatinine 1.05 0.80 - 1.30 mg/dL Glucose 106 70 - 199 mg/dL Calcium 8.7 8.5 - 10.3 mg/dL Bilirubin, total 0.3 0.1 - 1.2 mg/dL Protein, pl 7.2 6.5 - 8.5 g/dL Albumin 3.2 (L) 3.5 - 5.0 g/dL Alk phos 88 40 - 130 Units/L ALT 41 7 - 55 Units/L AST 54 (H) 10 - 50 Units/L Lipase Collection Time: 07/04/24 10:07 AM Result Value Ref Range Lipase 55 10 - 99 Units/L Urinalysis reflex to microscopic and culture Urine Collection Time: 07/04/24 10:07 AM Specimen: Urine Result Value Ref Range Color, ur Yellow Yellow Clarity, ur Cloudy (A) Clear Specific gravity, ur 1.012 1.003 - 1.030 pH, urine 6.5 Protein, ur ql 1+ (A) Negative Glucose, ur ql Negative Negative Ketones, ur Negative Negative Bilirubin, ur Negative Negative Blood, ur 2+ (A) Negative Urobilinogen, ur <2.0 <2.0 mg/dL Nitrite, ur Positive (A) Negative Leukocyte esterase, ur 3+ (A) Negative UA reflex comment Reflex to microscopic UA will be performed. T-helper cells (CD4) count Collection Time: 07/04/24 10:07 AM Result Value Ref Range CD4 pct 12 (L) 31 - 64 % CD4 Absolute 132 (L) 365 - 1,294 cells/mcL Differential, auto Collection Time: 07/04/24 10:07 AM Result Value Ref Range Neutrophil abs 4.9 1.5 - 6.5 K/cumm Imm gran abs 0.1 0.0 - 0.1 K/cumm Lymphocyte abs 1.2 0.8 - 3.3 K/cumm Monocyte abs 0.9 (H) 0.2 - 0.8 K/cumm Eosinophil abs 0.0 0.0 - 0.5 K/cumm Basophil abs 0.0 0.0 - 0.1 K/cumm Neutrophil pct 69.4 % Imm gran pct 1.7 % Lymphocyte pct 16.6 % Monocyte pct 11.9 % Eosinophil pct 0.1 % Basophil pct 0.3 % Urinalysis, microscopic only Collection Time: 07/04/24 10:07 AM Result Value Ref Range WBC, ur >50 (A) 0 - 5 /HPF RBC, ur 11-20 (A) 0 - 2 /HPF Bacteria, ur 4+ (A) Mucous, ur Present (A) Amorphous crystals, ur 1+ (A) Culture Reflex Comment Reflex to urine culture will be performed. eGFR Collection Time: 07/04/24 10:07 AM Result Value Ref Range eGFR >90 >=60 mL/min/1.73 m2 Sepsis Lactate w/ Reflex Collection Time: 07/04/24 11:28 AM Result Value Ref Range Sepsis Lactate 0.6 (L) 0.7 - 2.0 mmol/L OTHER STUDIES US Kidney Complete Narrative: EXAMINATION: COMPLETE RENAL SONOGRAM HISTORY: Left-sided flank [...] artifact. Bladder: The urinary bladder is normal Impression: Mixed cystic and solid lesion in the mid zone of the left kidney may represent a developing abscess in the setting of bilateral pyelonephritis and pyelitis, however the majority of this lesion is not liquid and would not be amenable to drainage. Dictated by: Ernesto Vides MD MRI Brain Incl Orbits W WO Contrast Narrative: EXAMINATION: 1. Magnetic resonance imaging (MRI) of [...] artery. There is no abnormal contrast enhancement. Impression: No MR evidence of acute intracranial abnormality. [...] it. Electronically signed by: Gwendolyn Gonzalez M.D. CT Abdomen Pelvis W Contrast Narrative: EXAMINATION: Computed tomography of the abdomen and [...] inguinal hernia repair. No suspicious osseous lesion. Impression: Bilateral pyelonephritis and pyelitis. Electronically signed by: Juan Mason M.D. ASSESSMENT & PLAN Phil Chase is a 28 y.o. male with PMH significant for HIV (not taking ART therapy 2/2 depression), hx TIAs, MAURI (amphetamine), hx neurosyphillis, and borderline personality disorder, who presented with right leg weakness/numbness and vision changes. # Bilateral pyelonephritis Presented with 2d of dysuria and urinary frequency. UA with >50 WBC, 3+ LE, +nitrites. CT showing bilateral (L > R) pyelonephritis. - continue CTX 1g daily x 7 days (12/13-07/11) - f/u urine cx - PVR # R superior vision defect On admission, reported new decreased vision of R eye. - ophtho consulted, appreciate recs: - Refresh eye drops - consider bMRI and orbit w and wo contrast - outpatient ophtho follow-up # Right arm/leg weakness He reports these are similar to symptoms at the time of his previous TIA a month ago in [facility]. CT head wnl. - re-assess symptoms once stabilized from pyelonephritis perspective - possible PT/OT however would likely be difficult given his housing issues # Positive syphilis serologies Has hx neurosyphilis dx 2018 treated by ID with most recent course of 2w IV PCN 10/2023. After treatment, serologies were persistently low but elevated. Most recently 1:32 titer 07/03/24 stable from 1:32 in 05/2024. - recommend continued ID outpatientfollow-up # HIV - CD4 132 this admission Diagnosed with HIV 2018 with CD4 64. Followed with Dr. Sullivan at [facility] with improvement in CD4 to 202 in 2022. He recently has had inconsistent Biktarvy use and most recent CD4 132 06/2024. - continue output follow-up at [facility] - continue Biktarvy - continue bactrim 3x/week for PFP ppx # Depression with intermittent suicidal ideation He has 20+ visits for SI in the past year, has been evaluated multiple times in the past by psych and found to have chronic low-level SI without benefit from hospitalization. Recently hospitalized 05/2024 for benzo overdose (injested 27 2mg tabs xanax), psychiatry at that time consulted: Overall, this patient is at chronic high risk of harm to self and others due to non-modifiable risk factors, and he does not have acute risk factors that can be modified by an inpatient psych admission. - requires outpatient psych follow-up for management of his depression and chronic SI - hold home aripiprazole, bupropion, buspirone, - continue duloxetine, trazodone # Substance use Previously recommended rehab at other hospitalizations however patient was not interested. - SW consult later this admissionfor resources Diet: Adult Diet Regular DVT Prophylaxis: lovenox Access: PIV Dispo: likely home after admission Code Status: Full Code Samantha Holman MD Internal Medicine PGY-2 07/04/2024 5:46 PM Cosigned by Geo Palacios MD at 07/05/2024 1:39 PM [employer] Associated attestation - Geo Palacios MD - 07/05/2024 1:39 PM [employer] Attending Documentation I have seen and examined the patient on 07/04/2024. I agree with the findings and plan of care as documented in the resident's/fellow's note. Supplementary Attestation Shaking chills noted along with fever; have obtained blood cultures to exclude active bacteremia incontext of pyelonephritis. May continue ceftriaxone for now, though would maintain low threshold toescalate to carbapenem if clinical worsening. Geo Palacios MD documented in this encounter Consult Notes * Javier Woods NP - 07/07/2024 9:15 AM CSTAssociated Order(s): CONSULT TO CHEMICAL DEPENDENCY Chemical Dependency Consult Phil Chase - [id number] Date of Service: 07/07/24 Time of Service: 09:15 HPI: 28 y/o male with history of TIA, BPD, HIV, transverse myelitis, neurosyphilis and [employer] (methamphetamine, marijuana) admitted 07/04/24 with left flank pain. Urine drug screen positive for methamphetamine. EtOH level < 10. Upon introducing myself and the purpose of my visit the patient offered I'm already in treatment. When I asked where he replied [facility] and thereafter refused further participation. He also declined a list of treatment resources. Javier Woods [facility], PMHNP- [place] * Winifred Smith RD - 07/06/2024 6:28 PM CSTAssociated Order(s): IP CONSULT TO NUTRITION SERVICES NUTRITION ASSESSMENT Nutrition Status: Patient meets criteria for severe chronic malnutrition, reference AAIM (ASPEN) guidelines. Present on Admission: Yes REASON FOR ASSESSMENT: Consult/Referral - At Risk MST Score Encounter Date: 07/06/24 6:28 PM Admission Date: 07/04/2024 LOS: 2 days HPI: Patient is a 28 y.o. male with PMH significant for HIV (not taking ART therapy 2/2 depression), hx TIAs, MAURI (amphetamine), hx neurosyphillis, and borderline personality disorder, who presented with right leg weakness/numbness and vision changes. Objective Past Medical History: Diagnosis Date Anal warts Borderline personality disorder (CMS/HCC) ([facility]) Depression prior suicide attempts (10/2023, 02/2024) Depression with suicidal ideation HIV (human immunodeficiency virus infection) ([facility]) HIV (human immunodeficiency virus infection) ([facility]) Dx 2018 Methamphetamine use disorder, moderate, in early remission ([facility]) Neuropathy (CMS/HCC) PTSD (post-traumatic stress disorder) Syphilis (acquired) Rx'd with 3 IM doses of Penicillni per patient Past Surgical History: Procedure Laterality Date LUMBAR PUNCTURE WO INJECTION, DIAGNOSTIC N/A 10/12/2023 Social History Tobacco Use Smoking status: Former Types: Cigarettes Passive exposure: Current Smokeless tobacco: Never Substance and Sexual Activity Drug use: Defer Frequency: 3.0 times per week Types: Methamphetamines Comment: relapsed - meth used 3 days ago Sexual activity: Defer Partners: Male Alcohol Use: Patient Declined (07/05/2024) AUDIT-C Frequency of Alcohol Consumption: Patient declined Average Number of Drinks: Patient declined Frequency of Binge Drinking: Patient declined MEDICATION/LAB REVIEW: Scheduled Meds: ogljgopngna-ursmivssjoetp-njcmatwqy, 1 tablet, oral, Daily cefTRIAXone, 2,000 mg, intravenous, Q12H KIMBERLEY [Held by Provider] DULoxetine DR, 60 mg, oral, Daily enoxaparin, 40 mg, subcutaneous, Daily-2100 folic acid, 1 mg, oral, Daily polyvinyl alcohol-povidone, 1 drop, each eye, TID sodium chloride 0.9%, 0.5-20 mL, intra-catheter, Q8H KIMBERLEY (ALT) sulfamethoxazole-trimethoprim, 160 mg of trimethoprim, oral, Once per day on Sunday thiamine, 500 mg, intravenous, Q8H Followed by [START ON 07/08/2024] thiamine, 250 mg, oral, Daily vancomycin, 15 mg/kg, intravenous, Q12H Continuous Infusions: PRN Meds: acetaminophen sodium chloride 0.9% hydrOXYzine influenza trivalent ondansetron ramelteon sodium chloride 0.9% traZODone Recent Labs Lab Units 07/06/24 0654 07/04/24213807/04/24 1007 SODIUM mmol/L 139 138 142 POTASSIUM PLASMA mmol/L 4.0 3.7 3.8 CHLORIDE mmol/L 107 104 109 CO2 mmol/L BUN SERUM mg/dL 05 05 13 CREATININE mg/dL 0.96 1.23 1.05 MGO-EFU-IITOLDB mL/min/1.73 m2 >90 81 >90 CALCIUM mg/dL 8.3* 8.1* 8.7 ALBUMIN g/dL -- -- 3.2* MAGNESIUM mg/dL 2.0 1.7 -- Recent Labs Lab Units 07/06/24 0654 07/05/24 1219 07/05/24 0555 07/04/24213807/04/24 1007 07/03/24 0513 07/03/24 0509 GLUCOSE mg/dL 138 -- -- 106 106 -- 133 POC GLUCOSE MONITOR mg/dL -- 114 113 -- -- 129 -- ALT Date Value Ref Range Status 07/04/2024 41 7 - 55 Units/L Final AST Date Value Ref Range Status 07/04/2024 54 (H) 10 - 50 Units/L Final Alk phos Date Value Ref Range Status 07/04/2024 88 40 - 130 Units/L Final Lipase Date Value Ref Range Status 07/04/2024 55 10 - 99 Units/L Final Lab Results Component Value Date HGBA1C 5.7 08/01/2017 HDL 33 (L) 06/02/2024 LDLCALC 65 06/02/2024 CHOL 110 06/02/2024 TRIG 51 06/02/2024 NURSING ASSESSMENT: Last BM Date: 07/04/24 Bowel Sounds (All Quadrants): Active Kumar Scale Score: 19 Vital Signs @FLOW(5) Temp: 36.7 ??C (98.1 ??F) Pulse: 63 Resp: 16 SpO2: 100 % Intake/Output Summary (Last 24 hours) at 07/06/2024 1828 Last data filed at 07/06/2024 0850 Gross per 24 hour Intake 1248 ml Output 1650 ml Net -402 ml Adult Malnutrition Scoring Tool (MST) What diet do you follow at home?: Regular Have You Recently Lost Weight Without Trying?: Yes (Comment) How Much Weight Have You Lost?: 14 - 23 lb Have you been eating poorly because of a decreased appetite?: Yes Malnutrition Screening Tool (MST) Score: 3 Hunger Screen - Admission Within the past 12 months the food we bought just didn't last and we didn't have money to get more.: Never true Within the past 12 months we worried whether our food would run out before we got money to buy more.: Never true Within the past 12 months, you worried that your food would run out before you got the money to buymore.: Patient declined Within the past 12 months, the food you bought just didn't last and you didn't have money to get more.: Patient declined Anthropometrics Weight: 68.7 kg (151 lb 8 oz) Admission Weight : 68.7 kg Weight Change: -0.22 kg (-0.50 lbs) IBW/kg (Calculated) : 80.8 kg Height: 182.9 cm (6' 0.01 ) Weight in (lb) to have BMI = 25: 184 BMI (Calculated): 20.5 Wt Readings from Last 10 Encounters: 07/04/24 68.7 kg (151 lb 8 oz) 07/03/24 69 kg (152 lb 1.6 oz) 06/27/24 81.6 kg (180 lb) 06/26/24 68 kg (149 lb 14.6 oz) 06/18/24 68 kg (149 lb 14.6 oz) 06/03/24 68 kg (149 lb 14.4 oz) 05/10/24 81.6 kg (180 lb) 04/30/24 81.6 kg (180 lb) 04/28/24 81.6 kg (180 lb) 04/14/24 81.6 kg (180 lb) Dietary Orders (From admission, onward) Start Ordered 07/05/24 1700 Oral Nutrition Supplements Quantity (# of cans): 1 can; ([facility]) Select Supplement: Ensure High Protein - Vanilla All Meals Question Answer Comment Quantity (# of cans): 1 can ([facility]) Select Supplement: Ensure High Protein - Vanilla 07/05/24 1636 07/04/24 1745 Adult Diet Regular Diet effective now Question: ([facility]) Diet type Answer: Regular 07/04/24 174 Allergies: Reviewed. IMPRESSION: RD consulted on this pt per MST score of 3. Pt is agitated during the time of RD visit. Reports eating 1 meal/day and had no N/V/D RESIDENTIAL CAREGIVER, but is having diarrhea during this admission. States a UBW of 180 lbs. Per chart review, pt weighed 180 lbs on 01/25 and currently weighs 151 lbs - indicating 16% wtloss x 5 months, which is significant. Pt refused NFPE exam during this time. Will conduct next F/Uvisit. RD recommended oral supplements - pt agrees to ensure PLUS HP TID. Will order and monitor tolerance. Labs reviewed. RD following. ABIDA (ASP[facility]) MALNUTRITION ASSESSMENT: Date of completion: 07/06 ASPEN/AND Malnutrition Screening: Chronic illness or injury severe Energy Intake: < 75% energy intake compared to estimated energy needs > (or equal to) 1 month Weight Loss: > 10% in 6 months Patient Meets Criteria for Severe Malnutrition: Yes NUTRITION FOCUSED PHYSICAL EXAM: Pt refused exam. NUTRITION DIAGNOSIS: Nutrition Diagnosis 1: Protein-Calorie Malnutrition - Severe Related to: Chronic illness/injury Evidenced by: Patient interview, Inconsistent PO intakes, Weight loss INTERVENTION(S): Summary: Follow up per policy, Encouragement, Initial assessment, Meals and snacks, Medical food supplement Continue with regular diet Continue adequate PO intake during this admission Recommend consuming 3 balanced meals/day post-discharge Conduct NFPE next F/U visit Send Ensure HP TID RD following GOAL(S): Adequate nutrition to meet estimated needs by next assessment, Tolerance of medical food supplementby next assessment MONITORING/EVALUATION: Appetite, Plan of care, Labs, PO intake, Supplement tolerance, Discharge plans, Weight changes, I/O Winifred Smith MS, RD, LD [facility] [place] * Ernesto Muhammad MD - 07/05/2024 8:43 AM CST Images from the original note were not included. Interventional Radiology Consult Resolution Note Reason for Consult: Evolving renal abscess, pyelonephritis Assessment and Plan: /Imaging reviewed. Evolving interpolar/lower pole probably lobar nephronia in flux/transition to eventual renal abscess. There is very little fluid component at this time, so it is not amenable to drainage at this time. The minimal fluid component was confirmed with an ultrasound as well. Recommend continiuing IV ABX and rescan in 2-3 days time if no clinical improvement and we are happy to re-evaluate. As discussed with the primary team on July 05, 2024, the prior consult request has been closed and the order cancelled in [facility]. Thank you for the opportunity to participate in this patient's care. If the clinical situation changes, a new consult request will be needed. Ernesto Muhammad MD Vascular and Interventional Radiology [employer] documented in this encounter Nursing Notes * Oumou Adrian RN - 07/04/2024 10:18 PM CST Images from the original note were not included. Admission Note- Mobility Focused BMAT SCORE: 3 Is the patient experiencing pain that is impacting their mobility? No Altered mental status?: No Most recent vital signs: BP 111/75 Pulse 60 Temp 37.4 ??C (99.3 ??F) Comment: transfer to room ED4-4 Resp 18 Ht 182.9 cm (6' 0.01 ) Wt 68.7 kg (151 lb 8 oz) SpO2 99% BMI 20.54 kg/m?? Current LDA's (Fill in manually): Is the patient's current BMAT score different than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 Exposure No E-Cigarette/Vaping Substances Questions Responses Nicotine No THC Yes CBD No Flavoring No Unknown substances No E-Cigarette/Vaping Devices Questions Responses Disposable No Pre-filled or Refillable Cartridge No Refillable Tank No Pre-filled Pod No Drug Details Questions Responses Amphetamine frequency Past regular use Hallucinogen frequency Never used Amphetamine last use 12/18/23 Ecstasy frequency Never used Sedative frequency Never used Opiate frequency Never used Cocaine frequency Never used Cannabis frequency 3 or more times/week Inhalant frequency Never used Other drug frequency Never used Substance Abuse, Mental Health, and Trauma History: Chemical Dependency, Mental Health & Trauma History Chemical Dependency: Patient disclosed use of meth a week prior to admittance. Per H&P: patientwas using meth every other weekend and taking 6 shots a day. Patient reported his last week was a drink ago. Mental Health: Per chart review: patient has diagnosis of boderline personality disorder. Rafiq has an extensive psych history. (07/08/24 1400) Risk to Self and Others: Risk to Self and Others Violence risk to self in past 6 months? : Yes (Comment) (Pt admitted for SI on 03/03) Self Harm/Suicidal Ideation Plan: Yes (Pt admitted for SI on 03/03) Previous Self Harm/Suicidal Attempts: Yes (Comment) (Per chart review: history of overdose and attempt to hang himself) Violence risk to others in past 6 months? : No Any lifetime risk of violence to others? : No Current Plans to Harm Another: No Previous Plans to Harm Another: Patient denies HI (07/08/24 1400) Impressions and Recommendations: Phil Chase is a 28 y.o. male with PMH significant for HIV (not taking ART therapy 2/2 depression), hx TIAs, MAURI (amphetamine), hx neurosyphillis, and borderline personality disorder, who presented with right leg weakness/numbness and vision changes. Predictive Model Details 71% (High Risk) Factor Value Calculated 07/08/2024 10:09 44% Number of ED visits in last six months 18 Risk of Unplanned Readmission Model 15% Number of hospitalizations in last year 7 9% Diagnosis of drug abuse present 8% Number of active inpatient medication orders 26 4% Active antipsychotic inpatient medication order present 4% ECG/EKG order present in last 6 months 3% Encounter of ten days or longer in last year present 3% Imaging order present in last 6 months 3% Latest hemoglobin low (10.4 g/dL) 2% Charlson Comorbidity Index 4 2% Active anticoagulant inpatient medication order present 2% Current length of stay 3.935 days 1% Age 28 Social Work was consulted due to 71% readmission risk and 14 IP. SW completed initial assessment with patient at bedside. Throughout the assessment, the patient had no eye contact and was forthcomingwith information. Patient presented as AxO x3 and had appropriate affect. Patient is currently un-housed. Patient has Medicaid insurance. SW informed patient of chart review and asked patient to confirm information. Social Work discussed any SDOH concerns regarding food, transportation, housing/financial instability, and social connections. Patient is currently un- housed. Patient reported to SW he was currently sleeping at [facility]. SW called the usp and they informed SW that the usp is an emergency warming usp only. They are not open unless the temperature is below freezing. SWmet with the patient to inform him of the discovery and inquire if there was another place he wouldlike to discharge to. Patient requested to be discharged to [facility], [facility] [place] [address]. Patient has a history of psych and substance abuse. Patient has disclosed on previous admissions that he does not want to be alive and I want to shoot myself . He was admitted 03/03/24 for SI and CD. Patient reported he has used meth every weekend up until a week prior to this admission and was drinking 6 shots a day and his last drink was a week ago. Patient was not amenable to CD or mental nancy resources. Per chart review it was previously documented the patient had a advertising representative with [employer], Isadora De La Rosa ([phone]). SW called Isadora to gain current collateral on the pt and she informed SW that the patient had been terminated from services. Patient requested discharge to [facility] [place] [address] [place] [address]. The patient does not have an advanced directive nor stated a surrogate decision maker. No further SW interventions identified. SW will sign off at this time, and encouraged patient to inform nurse or medical staff if new needs arise. Case Management to continue following for discharge planning. AIDE Wei [phone] Inpatient Social Work Please see [facility] for contact information. [facility] * Plan of Care - Geovanni Skaggs - 07/08/2024 8:28 AM CST Goals: Summary: [facility] * Initial Assessments - Bee Paulino RN - 07/08/2024 8:01 AM CST CM Initial Assessment Interview Note Information Obtained From: Patient (07/08/24 075) Admission Source: Non Health care facility Impression: Patient is a 28 yo with a history of HIV, Neurosyphilis presented with right leg weakness, numbness and vision changes Plan Includes: Anticipated discharge to a usp with assistance with community resources Primary Source of Transportation: Does the patient need discharge transport arranged?: Yes Has discharge transport been arranged?: No Details of Transportation: [place] (07/08/24 0758) Health Insurance Coverage: All [facility] Prescription Coverage: yes [facility] [place], [place] [facility] [address] [address] [facility] [address] [place], [place] - [address] [facility], [place]) [address] [facility] [address] [facility] [place], [place] [address] [address] [facility] [address] [facility] [address] [place], [place] - [address] [facility] [facility], [facility] [address] Primary Care Provider: Mady Sullivan MD Prior to Admission: Functional Status: Independent with ADLs Primary Caregiver: Self Support System: Parent (Sarah Simpson/mother [phone]) Home Care Services: No Outpatient Services: No Durable Medical Equipment: None Living Arrangements: Other (Comment) (Un-housed) Type of Residence: Homeless Steps in home?: No steps inside or outside Number of steps outside: 5 steps Medication management: Independent (07/05/241621) Potential discharge needs include: Home Health: None (07/08/24757) OP Services: N/a Dialysis: N/a Behavioral Health Services: Behavioral Health Services: No (07/08/24757) Anticipated Level of Care: Anticipated discharge level of care: Retirement (07/08/24757) Patient expects to be Discharged to: Private residence, (07/05/241621) Additional Information: CM confirmed with patient PCP, pharmacy and, phone. Explained role and purpose of CM. Patient states he is un-housed and has been at a usp. CM discussed terminologist care placement vs Un-housed vs usp as patient informed CM that he is not interested to discuss that withCM at this time. SW c/s in place to assist with community resources Patient's Identified Problem/Goal Problem: Ensure acute medical needs are met and that patient has a safe discharge plan. Goal: Secure a discharge plan that patient/family are agreeable with and ensure patient has continuum of care. Case management will follow for discharge planning and send referrals as needed. Goals include: To assure continuity of care, To maximize coping skills, To assure patient is in a safe environment and To assure access to community resources. Plan includes: 1. Collaboration with Patient, Provider, Direct Care Nurse, Junior Software Developer, and other members of theHealth Care Team to assure needed interventions completed. 2. Return patient to optimal level of self-care post discharge. 3. Police Officer will follow for Discharge Planning - interventions as needed 4. Anticipated level of care at discharge 5. Planned Discharge Disposition Bee Paulino RN,BSN,CM For emergency needs from 4:31p.m. - 7:59a.m., please call the jockey's agent [phone]. For weekend/holiday needs from 8:00a.m. - 4:30p.m., please call the Weekend Police Officer . [employer] * Plan of Care - Chilo Palacios RN - 07/07/2024 7:49 PM CST Goals: Problem: Discharge Planning Goal: Understanding discharge needs will improve Outcome: Progressing Problem: Activity Goal: Ability to tolerate increased activity will improve Outcome: Progressing Problem: Communication Impairment Goal: Ability to express needs and understand communication Outcome: Progressing Problem: Chronic Conditions and Co-morbidities (Stable) Goal: Patient's chronic conditions and co-morbidity symptoms are monitored and maintained or improved (Please edit to comment chronic conditions for patient) Outcome: Progressing Problem: Coping Goal: Able to verbalize concerns and demonstrate effective coping strategies Outcome: Progressing Goal: Malini effectively with procedures resulting in improved understanding of illness/injury, pain/anxiety reduction Outcome: Progressing Goal: Ability to identify and develop effective coping behavior will improve Outcome: Progressing Problem: Musculoskeletal Goal: Return mobility to safest level of function Outcome: Progressing Problem: Gastrointestinal Goal: Minimal or absence of nausea and vomiting Outcome: Progressing Goal: Maintains or returns to baseline bowel function Outcome: Progressing Goal: Maintains adequate nutritional intake Outcome: Progressing Goal: Will show no signs and symptoms of gastrointestinal bleeding Outcome: Progressing Problem: Genitourinary Goal: Absence of urinary retention Outcome: Progressing Problem: Infection Goal: Absence of fever/infection during anticipated neutropenic period Outcome: Progressing [employer] * Plan of Care - Bee Paulino RN - 07/07/2024 1:59 PM CST Unable to complete initial assessment due to Patient stated he is sleeping and not able to answer question at this time . Admission Source: Non Health care facility Impression: Patient is a 28 yo with a history of HIV,Neurosyphilis presented with right leg weakness, numbness and vision changes Plan & Referrals made/in place: Continue IV abx. Pending ID final rec. Patient is un-housed and SW assisting with Housing resources ADD: 07-14 residential sales manager will continue to follow and assist with discharge planning as needed. Bee Paulino RN,BSN,CM [place] [employer] * Plan of Care - Eva Childs - 07/06/2024 11:45 PM CST Goals: Explain to the patient the need for collection of labs, monitor vital signs and increase comfort measures Summary: [employer] * Plan of Care - Margo Clarke - 07/06/2024 10:31 AM CST Goals: Problem: Discharge Planning Goal: Understanding discharge needs will improve 07/06/2024 1031 by Margo Clarke Outcome: Progressing 07/06/2024 0851 by Margo Clarke Outcome: Progressing Problem: Activity Goal: Ability to tolerate increased activity will improve 07/06/2024 1031 by Margo Clarke Outcome: Progressing 07/06/2024 0851 by Margo Clarke Outcome: Progressing Problem: Communication Impairment Goal: Ability to express needs and understand communication 07/06/2024 1031 by Margo Clarke Outcome: Progressing 07/06/2024 0851 by Margo Clarke Outcome: Progressing Problem: Chronic Conditions and Co-morbidities (Stable) Goal: Patient's chronic conditions and co-morbidity symptoms are monitored and maintained or improved (Please edit to comment chronic conditions for patient) 07/06/2024 1031 by Margo Clarke Outcome: Progressing 07/06/2024 0851 by Margo Clarke Outcome: Progressing Problem: Coping Goal: Able to verbalize concerns and demonstrate effective coping strategies 07/06/2024 1031 by Margo Clarke Outcome: Progressing 07/06/2024 0851 by Margo Clarke Outcome: Progressing Goal: Malini effectively with procedures resulting in improved understanding of illness/injury, pain/anxiety reduction 07/06/2024 1031 by Margo Clarke Outcome: Progressing 07/06/2024 0851 by Margo Clarke Outcome: Progressing Goal: Ability to identify and develop effective coping behavior will improve 07/06/2024 1031 by Margo Clarke Outcome: Progressing 07/06/2024 0851 by Margo Clarke Outcome: Progressing Problem: Musculoskeletal Goal: Return mobility to safest level of function 07/06/2024 1031 by Margo Clarke Outcome: Progressing 07/06/2024 0851 by Margo Clarke Outcome: Progressing Problem: Gastrointestinal Goal: Minimal or absence of nausea and vomiting 07/06/2024 1031 by Margo Clarke Outcome: Progressing 07/06/2024 0851 by Margo Clarke Outcome: Progressing Goal: Maintains or returns to baseline bowel function 07/06/2024 1031 by Margo Clarke Outcome: Progressing 07/06/2024 0851 by Margo Clarke Outcome: Progressing Goal: Maintains adequate nutritional intake 07/06/2024 1031 by Margo Clarke Outcome: Progressing 07/06/2024 0851 by Margo Clarke Outcome: Progressing Goal: Will show no signs and symptoms of gastrointestinal bleeding 07/06/2024 1031 by Margo Clarke Outcome: Progressing 07/06/2024 0851 by Margo Clarke Outcome: Progressing Problem: Genitourinary Goal: Absence of urinary retention 07/06/2024 1031 by Margo Clarke Outcome: Progressing 07/06/2024 0851 by Margo Clarke Outcome: Progressing Problem: Infection Goal: Absence of fever/infection during anticipated neutropenic period 07/06/2024 1031 by Margo Clarke Outcome: Progressing 07/06/2024 0851 by Margo Clarke Outcome: Progressing Summary: progressing [facility] [employer] * Plan of Care - Margo Clarke - 07/06/2024 8:51 AM CST Goals: Problem: Discharge Planning Goal: Understanding discharge needs will improve Outcome: Progressing Problem: Activity Goal: Ability to tolerate increased activity will improve Outcome: Progressing Problem: Communication Impairment Goal: Ability to express needs and understand communication Outcome: Progressing Problem: Chronic Conditions and Co-morbidities (Stable) Goal: Patient's chronic conditions and co-morbidity symptoms are monitored and maintained or improved (Please edit to comment chronic conditions for patient) Outcome: Progressing Problem: Coping Goal: Able to verbalize concerns and demonstrate effective coping strategies Outcome: Progressing Goal: Malini effectively with procedures resulting in improved understanding of illness/injury, pain/anxiety reduction Outcome: Progressing Goal: Ability to identify and develop effective coping behavior will improve Outcome: Progressing Problem: Musculoskeletal Goal: Return mobility to safest level of function Outcome: Progressing Problem: Gastrointestinal Goal: Minimal or absence of nausea and vomiting Outcome: Progressing Goal: Maintains or returns to baseline bowel function Outcome: Progressing Goal: Maintains adequate nutritional intake Outcome: Progressing Goal: Will show no signs and symptoms of gastrointestinal bleeding Outcome: Progressing Problem: Genitourinary Goal: Absence of urinary retention Outcome: Progressing Problem: Infection Goal: Absence of fever/infection during anticipated neutropenic period Outcome: Progressing Summary: progressing [place] [employer] * Plan of Care - Eva Childs - 07/05/2024 11:57 PM CST Goals: Assess the patient for AWAS, monitor vital signs ,collect labs and promote patient's comfort Summary: [employer] * Plan of Care - Margo Clarke - 07/05/2024 5:03 PM CST Goals: Problem: Discharge Planning Goal: Understanding discharge needs will improve Outcome: Progressing Problem: Activity Goal: Ability to tolerate increased activity will improve Outcome: Progressing Problem: Communication Impairment Goal: Ability to express needs and understand communication Outcome: Progressing Problem: Chronic Conditions and Co-morbidities (Stable) Goal: Patient's chronic conditions and co-morbidity symptoms are monitored and maintained or improved (Please edit to comment chronic conditions for patient) Outcome: Progressing Problem: Coping Goal: Able to verbalize concerns and demonstrate effective coping strategies Outcome: Progressing Goal: Malini effectively with procedures resulting in improved understanding of illness/injury, pain/anxiety reduction Outcome: Progressing Goal: Ability to identify and develop effective coping behavior will improve Outcome: Progressing Problem: Musculoskeletal Goal: Return mobility to safest level of function Outcome: Progressing Problem: Gastrointestinal Goal: Minimal or absence of nausea and vomiting Outcome: Progressing Goal: Maintains or returns to baseline bowel function Outcome: Progressing Goal: Maintains adequate nutritional intake Outcome: Progressing Goal: Will show no signs and symptoms of gastrointestinal bleeding Outcome: Progressing Problem: Genitourinary Goal: Absence of urinary retention Outcome: Progressing Problem: Infection Goal: Absence of fever/infection during anticipated neutropenic period Outcome: Progressing Summary: progressing [place] [employer] * Plan of Care - Eva Childs - 07/05/2024 1:19 AM CST Goals: Monitor patient's VS, promote patient's comfort and safety Summary: [place] [employer] * ED Pre-Arrival Note - Rose Mary Mena RN - 07/04/2024 7:40 AM [facility] Pre-Arrival Note Per EMS, pt coming in for R side pain, was seen yesterday for same c/o. Rose Mary Mena RN [facility] [employer] documented in this encounter Plan of Treatment Pending Results Name Type Priority Associated Diagnoses Date /Time Drugs of Abuse Screen, Urine with Reflex Confirmation Lab Routine 07/05/2024 12:29 PM [facility] Scheduled Orders Name Type Priority Associated Diagnoses Orde r Schedule Drugs of Abuse Screen, Urine with Reflex Confirmation Lab Routine Once for 1 Occur rences starting 07/05/2024 until 07/05/2024 Scheduled Referrals Name Type Priority Associated Diagnoses Orde r Schedule Ambulatory referral to Neurology Outpatient Referral Routine Abnormal involuntary movements Expected: 07/18/2024 (Approximate), Expires: 07/04/2025 documented as of this encounter Procedures Procedure Name Priority Date/Time Associated Diagnosis Comments EGFR Routine 07/07/2024 8:41 PM [facility] DIFFERENTIAL AUTO Routine 07/07/2024 8:4 1 PM [facility] CBC WITH AUTO DIFFERENTIAL Routine 07/07/2024 8:41 PM [facility] MAGNESIUM Routine 07/07/2024 8:41 PM [facility] BASIC METABOLIC PANEL Routine 07/07/2024 8:41 PM [facility] INFECTION PREVENTION DELROY AURIS PCR, SURVEILLANCE Routine 07/07/2024 4:44 AM [facility] EGFR Routine 07/07/2024 1:14 AM [facility] DIFFERENTIAL AUTO Routine 07/07/2024 1:1 4 AM [facility] CBC WITH AUTO DIFFERENTIAL Routine 07/07/2024 1:14 AM [facility] MAGNESIUM Routine 07/07/2024 1:14 AM [facility] VANCOMYCIN LEVEL TROUGH Timed 07/07/20 1:14 AM [facility] BASIC METABOLIC PANEL Routine 07/07/2024 1:14 AM [facility] MRI ORBIT W WO CONTRAST IP Routine 07/06/20 1:31 PM [facility] EGFR Routine 07/06/2024 6:54 AM [facility] DIFFERENTIAL AUTO Routine 07/06/2024 6:5 4 AM [facility] CBC WITH AUTO DIFFERENTIAL Routine 07/06/2024 6:54 AM [facility] MAGNESIUM Routine 07/06/2024 6:54 AM [facility] BASIC METABOLIC PANEL Routine 07/06/2024 6:54 AM [facility] BLOOD CULTURE Timed 07/05/2024 4:10 PM [facility] BLOOD CULTURE Timed 07/05/2024 4:10 PM [facility] ETHANOL Timed 07/05/2024 3:55 PM [facility] DRUGS OF ABUSE SCREEN, URINE WITH REFLEX CONFIRMATION Routine 07/05/2024 12:29 PM [facility] AMPHETAMINE, URINE, CONFIRMATION Routine 07/05/2024 12:29 PM [facility] POCT GLUCOSE DEVICE Routine 07/05/2024 1 2:19 PM [facility] HIV-1 GENOTYPIC DRUG RESISTANCE Routine 07/05/2024 6:55 AM [facility] N. GONORRHOEAE/C. TRACHOMATIS AMPLIFICATION Routine 07/05/2024 6:39 AM [facility] TRICHOMONAS VAGINALIS PCR Routine 07/05/2024 6:39 AM [facility] HEPATITIS PANEL, ACUTE Routine 6:10 AM [facility] HIV-1 RNA, QUANTITATIVE, PCR Routine 07/05/2024 6:10 AM [facility] POCT GLUCOSE DEVICE Routine 07/05/2024 5 :55 AM [facility] EGFR Routine 07/04/2024 9:39 PM [facility] DIFFERENTIAL AUTO Routine 07/04/2024 9:3 9 PM [facility] CBC WITH AUTO DIFFERENTIAL Routine 07/04/2024 9:39 PM [facility] MAGNESIUM Routine 07/04/2024 9:39 PM [facility] [employer] BASIC METABOLIC PANEL Routine 07/04/2024 9:39 PM [facility] US KIDNEY COMPLETE ED 07/04/2024 5: 13 PM [facility] BLOOD CULTURE STAT 07/04/2024 4:57 PM [facility] BLOOD CULTURE STAT 07/04/2024 4:57 PM [facility] MRI BRAIN INCL ORBITS W WO CONTRAST ED 07/04/2024 2:[address] [facility] [address] [address] ABDOMEN PELVIS W CONTRAST ED 07/04/2024 12:25 PM [facility] [employer] SEPSIS LACTATE WITH REFLEX STAT 07/04/2024 11:28 AM [facility] BLOOD CULTURE STAT 07/04/2024 11:28 AM [facility] BLOOD CULTURE STAT 07/04/2024 11:28 AM [facility] POCUS RETROPERITONEAL (AAA OR RENAL) 07/04/2024 11:21 AM [facility] EGFR STAT 07/04/2024 10:07 AM [facility] DIFFERENTIAL AUTO STAT 07/04/2024 10: 07 AM [facility] URINALYSIS AND REFLEX TO MICROSCOPIC AND CULTURE STAT 07/04/2024 10:07 AM [facility] CBC WITH AUTO DIFFERENTIAL STAT 07/04/2024 10:07 AM [facility] URINALYSIS, MICROSCOPIC ONLY STAT 07/04/2024 10:07 AM [facility] T-HELPER CELLS (CD4) COUNT STAT 07/04/2024 10:07 AM [facility] URINE CULTURE STAT 07/04/2024 10:07 AM [facility] LIPASE STAT 07/04/2024 10:07 AM [facility] COMPREHENSIVE METABOLIC PANEL STAT 07/04/2024 10:07 AM [facility] documented in this encounter Results * eGFR (07/07/2024 8:41 PM [employer]) eGFR >90 >=60 mL/min/1. 73 m2 Comment: [...] last reviewed 2021. Blood 07/07/2024 8:41 PM [facility] 07/07/2024 8:53 PM [facility] [employer] us Federico Kelley MD LAB BLOOD ORDERABLES Antonina jhaveri Result [facility] [place] [address] * Differential, auto (07/07/2024 8:41 PM [employer]) Pathologist [facility] Center Neutrophil abs 2.6 1.5 - 6.5 K/cumm Imm gran abs 0.0 0.0 - 0.1 K/cumm [facility] Lymphocyte abs 1.5 0.8 - 3.3 K/cumm [facility] Monocyte abs 0.4 0.2 - 0.8 K/cumm [facility] Eosinophil abs 0.3 0.0 - 0.5 K/cumm [facility] Basophil abs 0.0 0.0 - 0.1 K/cumm [facility] Neutrophil pct 54.3 % [facility] Comment: Interpretive Data Percent cell count reference ranges are not reported, since discordance with absolute values may lead to misinterpretation of CBC data. Current Interpretive Data was last revised on 2017. Imm gran pct 0.8 % [facility] [place] Comment: Interpretive Data Percent cell count reference ranges are not reported, since discordance with absolute values may lead to misinterpretation of CBC data. Current Interpretive Data was last revised on 2017. Lymphocyte pct 31.3 % [facility] [place] Comment: Interpretive Data Percent cell count reference ranges are not reported, since discordance with absolute values may lead to misinterpretation of CBC data. Current Interpretive Data was last revised on 2017. Monocyte pct 7.2 % [facility] [place] Comment: Interpretive Data Percent cell count reference ranges are not reported, since discordance with absolute values may lead to misinterpretation of CBC data. Current Interpretive Data was last revised on 2017. Eosinophil pct 6.0 % [facility] [place] Comment: Interpretive Data Percent cell count reference ranges are not reported, since discordance with absolute values may lead to misinterpretation of CBC data. Current Interpretive Data was last revised on 2017. Basophil pct 0.4 % [facility] Comment: Interpretive Data Percent cell count reference ranges are not reported, since discordance with absolute values may lead to misinterpretation of CBC data. Current Interpretive Data was last revised on 2017. Blood 07/07/2024 8:41 PM [employer] 07/07/2024 8:53 PM [employer] Federico Kelley MD LAB BLOOD ORDERABLES Antonina l Result Performing Organization Address City/[facility] Co de Phone Number [facility] [place] [address] * Magnesium (07/07/2024 8:41 PM [employer]) Magnesium 1.8 1.4 - 2.5 mg/dL Blood 07/07/2024 8:41 PM [employer] 07/07/2024 8:53 PM [employer] Federico Kelley MD LAB BLOOD ORDERABLES Antonina l Result [facility] [place] [address] * (ABNORMAL) CBC with auto differential (07/07/2024 8:41 PM [employer]) [facility] WBC 4.9 3.8 - 9.9 K/cumm Hgb 10.4(L) 13.0 - 17.5 g/dL [facility] Hct 33.1(L) 38.9 - 50.3 % [facility] Plt 559(H) 150 - 400 K/cumm [facility] MPV 8.8(L) 9.1 - 12.3 fL [facility] RBC 4.32 4.30 - 5.80 M/cumm [facility] MCV 76.6(L) 81.3 - 96.4 fL [facility] MCH 24.1(L) 27.1 - 33.3 pg [facility] MCHC 31.4(L) 32.3 - 35.7 g/dL [facility] RDW CV 17.2(H) 11.1 - 14.9 % [facility] RDW SD 47.8 35.7 - 48.1 fL [facility] NRBC abs 0.00 0.00 - 0.01 K/cumm [facility] Blood 07/07/2024 8:41 PM [employer] 07/07/2024 8:53 PM [employer] Federico Kelley MD LAB BLOOD ORDERABLES Antonina jhaveri Result [facility] Department [place] [address] * Basic metabolic panel (07/07/2024 8:41 PM [employer]) [facility] Sodium 141 135 - 145 mmol/L Potassium, pl 4.5 3.3 - 4.9 mmol/L [facility] Chloride 106 97 - 110 mmol/L [facility] CO2 27 22 - 32 mmol/L [facility] Anion gap 8 2 - 15 mmol/L [facility] BUN 11 6 - 25 mg/dL [facility] Creatinine 1.00 0.80 - 1.30 mg/dL [facility] Glucose 110 70 - 199 mg/dL [facility] Comment: Interpretive Data Fasting glucose >/= 126 [...] 2022. Calcium 8.7 8.5 - 10.3 mg/dL [facility] Blood 07/07/2024 8:41 PM [employer] 07/07/2024 8:53 PM [employer] Federico Kelley MD LAB BLOOD ORDERABLES Antonina l Result [facility] [place] [address] * Infection Prevention Delroy auris PCR, surveillance Axilla/Groin (07/07/2024 4:44 AM [employer]) Pathologist [facility] Delroy auris DNA Not Detected Not Detected [facility] Comment: Interpretive Data Testing performed by [facility] Infectious Disease [facility] using the [employer] MDX Delroy auris assay. ??This assay detects DNA from Delroy auris using Real-Time PCR. ??This assay is laboratory developed and is not cleared by the [place] Food and Drug Administration. ??The performance characteristics have been verified by the [facility]ious Disease [facility]. Interpretive data was last reviewed on 11/14/2023 Axilla/Groin 07/07/2024 4:44 AM [employer] 07/07/2024 5:05 AM [employer] us Sancho Hart MD LAB MICROBIOLOGY - GENERAL ORDER ALOK Final Result Performing Organization Address [facility] Co de Phone Number OJE HAYWARD [facility] [place] [address] BJ * eGFR (07/07/2024 1:14 AM [employer]) Pathologist [facility] eGFR >90 >=60 mL/min/1. 73 m2 [...] last reviewed 2021. Blood 07/07/2024 1:14 AM [employer] 07/07/2024 1:22 AM [employer] us Federico Kelley MD LAB BLOOD ORDERABLES Antonina l Result Performing Organization Address City/[facility]/ZIP Co de Phone Number CERKOLBY [facility] Department [place] [address] * Differential, auto (07/07/2024 1:14 AM [employer]) Neutrophil abs 2.4 1.5 - 6.5 K/cumm Imm gran abs 0.0 0.0 - 0.1 K/cumm [facility] Lymphocyte abs 1.4 0.8 - 3.3 K/cumm [facility] Monocyte abs 0.4 0.2 - 0.8 K/cumm [facility] Eosinophil abs 0.3 0.0 - 0.5 K/cumm [facility] Basophil abs 0.0 0.0 - 0.1 K/cumm [facility] Neutrophil pct 51.8 % [facility] Comment: Interpretive Data Percent cell count reference ranges are not reported, since discordance with absolute values may lead to misinterpretation of CBC data. Current Interpretive Data was last revised on 2017. Imm gran pct 0.4 % [facility] Comment: Interpretive Data Percent cell count reference ranges are not reported, since discordance with absolute values may lead to misinterpretation of CBC data. Current Interpretive Data was last revised on 2017. Lymphocyte pct 31.6 % [facility] Comment: Interpretive Data Percent cell count reference ranges are not reported, since discordance with absolute values may lead to misinterpretation of CBC data. Current Interpretive Data was last revised on 2017. Monocyte pct 8.3 % [facility] Comment: Interpretive Data Percent cell count reference ranges are not reported, since discordance with absolute values may lead to misinterpretation of CBC data. Current Interpretive Data was last revised on 2017. Eosinophil pct 7.2 % [facility] Comment: Interpretive Data Percent cell count reference ranges are not reported, since discordance with absolute values may lead to misinterpretation of CBC data. Current Interpretive Data was last revised on 2017. Basophil pct 0.7 % [facility] Comment: Interpretive Data Percent cell count reference ranges are not reported, since discordance with absolute values may lead to misinterpretation of CBC data. Current Interpretive Data was last revised on 2017. Blood 07/07/2024 1:14 AM [employer] 07/07/2024 1:22 AM [employer] Federico Kelley MD LAB BLOOD ORDERABLES Antonina l Result Performing Organization Address City/[facility]/ZIP Co de Phone Number [facility] [place] [address] * Magnesium (07/07/2024 1:14 AM [employer]) [facility] Magnesium 1.9 1.4 - 2.5 mg/dL Blood 07/07/2024 1:14 AM [employer] 07/07/2024 1:22 AM [employer] us Federico Kelley MD LAB BLOOD ORDERABLES Antonina l Result Performing Organization Address [facility] Co de Phone Number [facility] [place] [address] * (ABNORMAL) CBC with auto differential (07/07/2024 1:14 AM [employer]) [facility] WBC 4.6 3.8 - 9.9 K/cumm Hgb 10.3(L) 13.0 - 17.5 g/dL [facility] Hct 32.4(L) 38.9 - 50.3 % [facility] Plt 462(H) 150 - 400 K/cumm [facility] MPV 9.2 9.1 - 12.3 fL [facility] RBC 4.21(L) 4.30 - 5.80 M/cumm [facility] MCV 77.0(L) 81.3 - 96.4 fL [facility] MCH 24.5(L) 27.1 - 33.3 pg [facility] MCHC 31.8(L) 32.3 - 35.7 g/dL [facility] RDW CV 17.3(H) 11.1 - 14.9 % [facility] RDW SD 48.2(H) 35.7 - 48.1 fL [facility] NRBC abs 0.00 0.00 - 0.01 K/cumm [facility] Blood 07/07/2024 1:14 AM [employer] 07/07/2024 1:22 AM [employer] us Federico Kelley MD LAB BLOOD ORDERABLES Antonina l Result Performing Organization Address [facility]/ZIP Co de Phone Number [facility] Department [place] [address] * Basic metabolic panel (07/07/2024 1:14 AM [employer]) Pathologist [facility] Sodium 140 135 - 145 mmol/L Potassium, pl 4.2 3.3 - 4.9 mmol/L [facility] Chloride 108 97 - 110 mmol/L [facility] CO2 25 22 - 32 mmol/L [facility] Anion gap 7 2 - 15 mmol/L [facility] BUN 14 6 - 25 mg/dL [facility] Creatinine 0.99 0.80 - 1.30 mg/dL [facility] Glucose 128 70 - 199 mg/dL [facility] Comment: Interpretive Data Fasting glucose >/= 126 [...] 2022. Calcium 8.5 8.5 - 10.3 mg/dL [facility] Blood 07/07/2024 1:14 AM [employer] 07/07/2024 1:22 AM [employer] Federico Kelley MD LAB BLOOD ORDERABLES Antonina l Result Performing Organization Address [facility] Co de Phone Number [facility] Department [place] [address] * (ABNORMAL) Vancomycin level trough Draw trough 30 minutes prior to 4th dose. (07/07/2024 1:14 AM [employer]) Pathologist [facility] Vancomycin trough 5.0(L) 10.0 - 20.0 mcg/mL Blood 07/07/2024 1:14 AM [employer] 07/07/2024 1:22 AM [employer] Narrative JOE HAYWARD - 07/07/2024 2:03 AM [employer] Draw trough 30 minutes prior to 4th dose. us Reji Melara MD LAB BLOOD ORDERABLES Final Result JOE [facility] [place] [address] * MRI Orbit W WO Contrast (07/06/2024 1:31 PM [employer]) Anatomical Region Laterality Modality Head and Neck N/A Magnetic Resonan ce 07/06/2024 2:00 PM [employer] Impressions 07/06/2024 2:50 PM [employer] 1. ??Questionable increased T2 signal and mild [...] Dallas Condon MD Narrative 07/06/2024 2:50 PM [employer] EXAMINATION: Magnetic resonance imaging (MRI) of the [...] Re sult * eGFR (07/06/2024 6:54 AM [employer]) eGFR >90 >=60 mL/min/1. 73 m2 Comment: [...] last reviewed 2021. Blood 07/06/2024 6:54 AM [employer] 07/06/2024 7:39 AM [employer] us Federico Kelley MD LAB BLOOD ORDERABLES Antonina l Result [facility] Department [place] [address] * Differential, auto (07/06/2024 6:54 AM [employer]) Neutrophil abs 2.8 1.5 - 6.5 K/cumm Imm gran abs 0.0 0.0 - 0.1 K/cumm [facility] Lymphocyte abs 1.1 0.8 - 3.3 K/cumm [facility] Monocyte abs 0.4 0.2 - 0.8 K/cumm [facility] Eosinophil abs 0.2 0.0 - 0.5 K/cumm [facility] Basophil abs 0.0 0.0 - 0.1 K/cumm [facility] Neutrophil pct 61.9 % [facility] Comment: Interpretive Data Percent cell count reference ranges are not reported, since discordance with absolute values may lead to misinterpretation of CBC data. Current Interpretive Data was last revised on 2017. Imm gran pct 0.7 % [facility] Comment: Interpretive Data Percent cell count reference ranges are not reported, since discordance with absolute values may lead to misinterpretation of CBC data. Current Interpretive Data was last revised on 2017. Lymphocyte pct 23.6 % [facility] Comment: Interpretive Data Percent cell count reference ranges are not reported, since discordance with absolute values may lead to misinterpretation of CBC data. Current Interpretive Data was last revised on 2017. Monocyte pct 7.9 % [facility] Comment: Interpretive Data Percent cell count reference ranges are not reported, since discordance with absolute values may lead to misinterpretation of CBC data. Current Interpretive Data was last revised on 2017. Eosinophil pct 5.2 % [facility] Comment: Interpretive Data Percent cell count reference ranges are not reported, since discordance with absolute values may lead to misinterpretation of CBC data. Current Interpretive Data was last revised on 2017. Basophil pct 0.7 % [facility] Comment: Interpretive Data Percent cell count reference ranges are not reported, since discordance with absolute values may lead to misinterpretation of CBC data. Current Interpretive Data was last revised on 2017. Blood 07/06/2024 6:54 AM [employer] 07/06/2024 7:13 AM [employer] Federico Kelley MD LAB BLOOD ORDERABLES Antonina l Result Performing Organization Address City/[facility]/ZIP Co de Phone Number [facility] Department [place] [address] * Magnesium (07/06/2024 6:54 AM [employer]) [facility] Magnesium 2.0 1.4 - 2.5 mg/dL Blood 07/06/2024 6:54 AM [employer] 07/06/2024 7:12 AM [employer] Federico Kelley MD LAB BLOOD ORDERABLES Antonina l Result Performing Organization Address [facility]/[place] de Phone Number [facility] Department [place] [address] * (ABNORMAL) CBC with auto differential (07/06/2024 6:54 AM [employer]) [facility] WBC 4.6 3.8 - 9.9 K/cumm Hgb 11.3(L) 13.0 - 17.5 g/dL [facility] Hct 36.1(L) 38.9 - 50.3 % [facility] Plt 368 150 - 400 K/cumm [facility] MPV 9.6 9.1 - 12.3 fL [facility] RBC 4.73 4.30 - 5.80 M/cumm [facility] MCV 76.3(L) 81.3 - 96.4 fL [facility] MCH 23.9(L) 27.1 - 33.3 pg [facility] MCHC 31.3(L) 32.3 - 35.7 g/dL [facility] RDW CV 17.2(H) 11.1 - 14.9 % [facility] RDW SD 47.4 35.7 - 48.1 fL [facility] NRBC abs 0.00 0.00 - 0.01 K/cumm [facility] Blood 07/06/2024 6:54 AM [employer] 07/06/2024 7:13 AM [employer] us Federico Kelley MD LAB BLOOD ORDERABLES Antonina l Result Performing Organization Address City/[facility]/ZIP Co de Phone Number JOE [facility] Department [place] [employer] [place] [place] [address] * (ABNORMAL) Basic metabolic panel (07/06/2024 6:54 AM [employer]) Sodium 139 135 - 145 mmol/L Potassium, pl 4.0 3.3 - 4.9 mmol/L [facility] Comment:Hemolyzed; Potassium value may be falsely elevated by as much as 0.3-0.5 mmol/L. Suggest redraw and reanalysis. Chloride 107 97 - 110 mmol/L [facility] CO2 24 22 - 32 mmol/L [facility] Anion gap 8 2 - 15 mmol/L [facility] BUN 10 6 - 25 mg/dL [facility] Creatinine 0.96 0.80 - 1.30 mg/dL [facility] Glucose 138 70 - 199 mg/dL [facility] Comment: Interpretive Data Fasting glucose >/= 126 [...] 2022. Calcium 8.3(L) 8.5 - 10.3 mg/dL [facility] Blood 07/06/2024 6:54 AM [employer] 07/06/2024 7:12 AM [employer] us Federico Kelley MD LAB BLOOD ORDERABLES Antonina l Result Performing Organization Address City/[facility]/ZIP Co de Phone Number JOE [facility] Department [place] [address] * Blood culture Blood (07/05/2024 4:10 PM [employer]) Report Final Report: No growth Blood 07/05/2024 4:10 PM [employer] 07/05/2024 4:26 PM [employer] Narrative JOE HAYWARD - 07/10/2024 7:00 AM [employer] From a different site than #1. Collection->Peripheral [...] characteristics have been verified by the [facility]. For questions about this culture, contact the Microbiology Laboratory at [phone]. Interpretive data was last revised on 24. us Dorothy Martinez MD LAB MICROBIOLOGY - GENERAL O RDERABLES Final Result [facility]E [facility] [place] [address] * Blood culture Blood (07/05/2024 4:10 PM [employer]) Report Final Report: No growth Blood 07/05/2024 4:10 PM [employer] 07/05/2024 4:26 PM [employer] Narrative JOE HAYWARD - 07/10/2024 7:00 AM [employer] Collection->Peripheral 1. ?Blood cultures are incubated for [...] characteristics have been verified by the [facility]. For questions about this culture, contact the Microbiology Laboratory at [phone]. Interpretive data was last revised on 24. us Dorothy Martinez MD LAB MICROBIOLOGY - GENERAL O RDERABLES Final Result Performing Organization Address City/State/[facility] Co de Phone Number JOE [facility] [place] [address] * Ethanol (07/05/2024 3:55 PM [employer]) Ethanol <10 <=10 mg/dL Comment: Interpretive Data Legal limit of intoxication > or = 80 mg/dL Levels > or = 400 mg/dL are potentially TOXIC. Current interpretive data was last revised on 2018. Blood 07/05/2024 3:55 PM [employer] 07/05/2024 4:47 PM [employer] us Reji Melara MD LAB BLOOD ORDERABLES Final Result Performing Organization Address City/State/[place] de Phone Number JOE [facility] [place] [address] * (ABNORMAL) Amphetamine Confirmation, Urine (07/05/2024 12:29 PM [employer]) Amphetamine Conf, Ur Confirmed Positive(A) CutOff 150ng/mL Methamphetamine Conf, Ur Confirmed Positive(A) CutOff 150ng/mL [facility] MDA Conf, Ur Does Not Confirm CutOff 150ng/mL [facility] MDMA Conf, Ur Does Not Confirm CutOff 50 ng/mL [facility] MDEA Conf, Ur Does Not Confirm CutOff [...] on 2020. Urine 07/05/2024 12:2 9 PM [employer] 07/05/2024 3:37 PM [employer] Cari Steven MD LAB URINE ORDERABLES Antonina l Result Performing Organization Address [facility] Co de Phone Number JOE [facility] [place] [address] * (ABNORMAL) Drugs of Abuse Screen, Urine with Reflex Confirmation (07/05/2024 12:29 PM [employer]) Amphetamine, ur Screen Positive, presumptive (A) CutOff 500ng/mL Comment: Interpretive Data - Amphetamines: ??Samples containing greater than 500 ng/mL d-methamphetamine ??or other cross-reacting amphetamine compounds are reported as positive. ??Amphetamine immunoassays are subject to significant false positive rates due to cross-reactivity of non-amphetamine drugs. Confirmatory testing required for definitive results. Current Interpretive Data was last reviewed 2023. Barbiturates, ur Not Detected CutOff 200ng/mL [facility] Comment: Interpretive Data - Barbiturates: ??Samples containing greater than 200 ng/mL secobarbital or other cross-reacting barbiturate compounds are reported as positive. ??False positive and false negative results are possible. Confirmatory testing required for definitive results. Current Interpretive Data was last reviewed 2023. Benzodiazepines, ur Not Detected CutOff 100ng/mL [facility] Comment: Interpretive Data - Benzodiazepines: ??Samples containing greater than 100 ng/mL nordiazepam or other cross-reacting compounds are reported as positive. False positive and false negative results are possible. Confirmatory testing required for definitive results. Current Interpretive Data was last reviewed 2023. Cannabinoids, ur Not Detected CutOff 50 ng/mL [facility] Comment: Interpretive Data - Cannabinoids: ??Samples containing greater than 50 ng/mL delta-9 THC -COOH or other cross-reacting compounds are reported as positive. ??False positive and false negative results are possible. ??Confirmatory testing required for definitive results. Current Interpretive Data was last reviewed 2023. Cocaine, ur Not Detected CutOff 150ng/mL [facility] Comment: Interpretive Data - Cocaine: ??Samples containing greater than 150 ng/mL benzoylecgonine or other cross-reacting compounds are reported as positive. False positive and false negative results are possible. Confirmatory testing required for definitive results. Current Interpretive Data was last reviewed 2023. Fentanyl, Ur Not Detected CutOff 5 ng/mL [facility] Comment: Interpretive Data - Fentanyl: ?? Samples containing greater than 5 ng/mL norfentanyl, fentanyl, or other cross-reacting fentanyl compounds are reported as positive. False positive and false negative results are possible. Confirmatory testing required for definitive results. Current Interpretive Data was last reviewed 2023. Methadone, ur Not Detected CutOff 300ng/mL [facility] Comment: Interpretive Data - Methadone: ??Samples containing greater than 300 ng/mL d,l-methadone or other cross-reacting compounds are reported as positive. ??False positive and false negative results are possible. Confirmatory testing required for definitive results. Current Interpretive Data was last reviewed 2023. Opiates, ur Not Detected CutOff 300ng/mL [facility] Comment: Interpretive Data - Opiates: ??Samples containing greater than 300 ng/mL morphine or other cross-reacting compounds are reported as positive. ??False positive and false negative results are possible. Confirmatory testing required for definitive results. Current Interpretive Data was last reviewed 2023. Oxycodone, ur Not Detected CutOff 100ng/mL [facility] [facility] Comment: Interpretive Data - Oxycodone: ??Samples containing greater than 100 ng/mL oxycodone or other cross-reacting compounds are reported as ??positive. ??False positive and false negative results are possible. Confirmatory testing required for definitive results. Current Interpretive Data was last reviewed 2023. Phencyclidine, ur Not Detected CutOff 25 ng/mL [facility] Comment: Interpretive Data - Phencyclidine: ??Samples containing greater than 25 ng/mL phencyclidine or other cross-reacting compounds are reported as positive. ??False positive and false negative results are possible. Confirmatory testing required for definitive results. Current Interpretive Data was last reviewed 2023. Urine Creatinine 78 mg/dL [facility] Comment: Interpretive Data Urine Creatinine: < 10 mg/dL is extremely dilute = or > 10 but < 20 mg/dL is dilute = or > 20 mg/dL is normal Current Interpretive Data was last revised on 2017. Urine 07/05/2024 12:2 9 PM [employer] 07/05/2024 3:37 PM [employer] Narrative [facility] - 07/05/2024 4:05 PM [employer] Drug of Abuse screening is performed by immunoassay for medical purposes only. ??This is not to be used for Pain Management purposes. ??If Detected, confirmation testing will be performed for Amphetamines, Cocaine, Fentanyl, Methadone, Opiates, Oxycodone or Phencyclidine. Cari Steven MD LAB URINE ORDERABLES Antonina jhaveri Result [facility] [place] [address] * POCT glucose (07/05/2024 12:19 PM [employer]) Pathologist [facility] Glucose, POC 114 70 - 199 mg/dL Blood 07/05/2024 12:1 9 PM [employer] 07/05/2024 12:19 PM [employer] us Reji Melara MD LAB POCT ORDERABLES - DEVIC E Final Result [facility] [place] [address] * HIV-1 Genotypic Drug Resistance Blood (07/05/2024 6:55 AM [employer]) [facility] HIV-1, genotypic drug resistance TNP Comment: HIV-1 Genotypic Drug Resistance, P was cancelled on 07/09/2024 at 11:35; Duplicate test request. Test Performed by: [id number] [place] [address] [employer]ian [employer]: Asim Shukla Ph.D.; CLIA# [id number] HIV-1 group M subtype Not Reported [facility] Nucleos(t)onofre RT mutations Not Reported [facility] Reverse Transcriptase failed codons Not Reported [facility] Abacavir Not Reported [facility] Didanosine Not Reported [facility] Emtricitabine Not Reported [facility] Lamivudine Not Reported [facility] Stavudine Not Reported [facility] Tenofovir Not Reported [facility] Zidovudine Not Reported [facility] Nonnucleoside RT mutations Not Reported [facility] Doravirine Not Reported [facility] Efavirenz Not Reported [facility] Etravirine Not Reported [facility] Nevirapine Not Reported [facility] Rilpivirine Not Reported [facility] Protease Mutations Not Reported [facility] Protease failed codons Not Reported [facility] Atazanavir w/ Ritonavir Not Reported [facility] Darunavir w/ Ritonavir Not Reported [facility] Fosamprenavir w/ Ritonavir Not Reported [facility] Indinavir w/ Ritonavir Not Reported [facility] Lopinavir w/ Ritonavir Not Reported [facility] Nelfinavir Not Reported [facility] Saquinavir w/ Ritonavir Not Reported [facility] Tipranavir w/ Ritonavir Not Reported [facility] Integrase Mutations Not Reported [facility] Integrase failed codons Not Reported [facility] Bictegravir Not Reported [facility] Cabotegravir Not Reported [facility] Dolutegravir Not Reported [facility] Elvitegravir Not Reported [facility] Raltegravir Not Reported [facility] Prior documented HIV RNA copies/mL Not Reported [facility] Blood 07/05/2024 6:55 AM [employer] 07/07/2024 12:11 PM [employer] Reji Melara MD LAB MICROBIOLOGY - GENERAL ORDERABLES Final Result Performing Organization Address [facility] Co de Phone Number [facility] [place] [address] * N. gonorrhoeae/C. trachomatis Amplification Urine (07/05/2024 6:39 AM [employer]) [facility] C. trachomatis Not Detected Not Detected [facility] N. gonorrhoeae Not Detected Not Detected [facility] Comment: Interpretive Data This assay detects Chlamydia trachomatis and Neisseria gonorrhoeae by nucleic acid amplification testing (NAAT). This assay has been cleared by the [place] Food and Drug administration. The performance characteristics of this test have been verified by the [facility] Molecular Infectious Disease laboratory. The performance characteristics of this test have not been evaluated in individuals less than 14 years of age. Current Interpretive Data last revised 2023. Urine (None) 07/05/2024 6:39 AM [employer] 07/05/2024 6:54 AM [employer] Reji Melara MD LAB MICROBIOLOGY - GENERAL ORDERABLES Final Result Performing Organization Address City/[facility] Co de Phone Number [facility] Department [place] [address] [facility] * Trichomonas vaginalis PCR Urine (07/05/2024 6:39 AM [employer]) [facility] Trichomonas DNA Not Detected Not Detected [facility] Comment: Interpretive Data This assay detects Trichomonas vaginalis by nucleic acid amplification testing (NAAT). This assay has been cleared by the [place] Food and Drug administration. The performance characteristics of this test have been verified by the [facility] Molecular Infectious Disease laboratory. Excess blood in specimens may be inhibitory and result in false negative results. ??The performance of this test has not been evaluated in women or individuals less than 18 years of age. Current Interpretive Data last revised 2023. Urine 07/05/2024 6:39 AM [employer] 07/05/2024 6:54 AM [employer] Reji Melara MD LAB MICROBIOLOGY - GENERAL ORDERABLES Final Result Performing Organization Address [facility] Co de Phone Number [facility] [place] [address] [facility] * Hepatitis panel, acute Blood (07/05/2024 6:10 AM [employer]) [facility] Hep A IgM Nonreactive Nonreactive Hep B core IgM Nonreactive Nonreactive [facility] Hep C Ab Nonreactive Nonreactive [facility] Comment:Antibodies to HCV no t detected. Does NOT exclude the possibility of recent exposure to HCV. Current interpretive data was last revised on 22 HepBsAg Nonreactive Nonreactive [facility] Blood 07/05/2024 6:10 AM [employer] 07/05/2024 6:35 AM [employer] Reji Melara MD LAB MICROBIOLOGY - GENERAL ORDERABLES Final Result Performing Organization Address City/[facility]/ZIP Co de Phone Number [facility] [place] [address] * (ABNORMAL) HIV-1 RNA PCR, quantitative Blood (07/05/2024 6:10 AM [employer]) [facility] HIV-1 RNA Detected( A) [facility] Comment: The quantifiable range of this assay is 20 copies/mL to 10,000,000 copies/mL (1.30 log copies/mL to 7.00 log copies/mL). ??Testing was performed by the [employer] 6800 HIV-1 Test([employer] Testing performed [facility] Current Interpretive Data was last revised on 2021. HIV-1 RNA, copies/mL 103,000 copies/mL [facility] HIV-1 RNA, log 5.01 log cps/mL [facility] Blood 07/05/2024 6:10 AM [employer] 07/05/2024 7:17 AM [employer] Reji Melara MD LAB MICROBIOLOGY - GENERAL ORDERABLES Final Result Performing Organization Address [facility] Co de Phone Number [facility] Department [place] [address] [facility] * POCT glucose (07/05/2024 5:55 AM [employer]) [facility] Glucose, POC 113 70 - 199 mg/dL Blood 07/05/2024 5:55 AM [employer] 07/05/2024 5:55 AM [employer] Reji Melara MD LAB POCT ORDERABLES - DEVIC E Final Result Performing Organization Address [facility] de Phone Number [facility] Department [place] [address] * eGFR (07/04/2024 9:39 PM [employer]) [facility] eGFR 81 >=60 mL/min/1. 73 m2 Comment: [...] last reviewed 2021. Blood 07/04/2024 9:39 PM [employer] 07/04/2024 9:53 PM [employer] Federico Kelley MD LAB BLOOD ORDERABLES Antonina jhaveri Result [facility] [place] [address] * (ABNORMAL) Differential, auto (07/04/2024 9:39 PM [employer]) Neutrophil abs 6.8(H) 1.5 - 6.5 K/cumm Imm gran abs 0.2(H) 0.0 - 0.1 K/cumm [facility] Lymphocyte abs 1.1 0.8 - 3.3 K/cumm [facility] Monocyte abs 0.6 0.2 - 0.8 K/cumm [facility] Eosinophil abs 0.0 0.0 - 0.5 K/cumm [facility] Basophil abs 0.0 0.0 - 0.1 K/cumm [facility] Neutrophil pct 78.0 % [facility] Comment: Interpretive Data Percent cell count reference ranges are not reported, since discordance with absolute values may lead to misinterpretation of CBC data. Current Interpretive Data was last revised on 2017. Imm gran pct 2.0 % [facility] Comment: Interpretive Data Percent cell count reference ranges are not reported, since discordance with absolute values may lead to misinterpretation of CBC data. Current Interpretive Data was last revised on 2017. Lymphocyte pct 13.0 % [facility] Comment: Interpretive Data Percent cell count reference ranges are not reported, since discordance with absolute values may lead to misinterpretation of CBC data. Current Interpretive Data was last revised on 2017. Monocyte pct 6.6 % [facility] Comment: Interpretive Data Percent cell count reference ranges are not reported, since discordance with absolute values may lead to misinterpretation of CBC data. Current Interpretive Data was last revised on 2017. Eosinophil pct 0.1 % [facility] Comment: Interpretive Data Percent cell count reference ranges are not reported, since discordance with absolute values may lead to misinterpretation of CBC data. Current Interpretive Data was last revised on 2017. Basophil pct 0.3 % [facility] Comment: Interpretive Data Percent cell count reference ranges are not reported, since discordance with absolute values may lead to misinterpretation of CBC data. Current Interpretive Data was last revised on 2017. Blood 07/04/2024 9:39 PM [employer] 07/04/2024 9:53 PM [employer] us Federico Kelley MD LAB BLOOD ORDERABLES Antonina l Result Performing Organization Address City/[facility] Co de Phone Number [facility] [place] [address] * Magnesium (07/04/2024 9:39 PM [employer]) Magnesium 1.7 1.4 - 2.5 mg/dL Blood 07/04/2024 9:39 PM [employer] 07/04/2024 9:53 PM [employer] Federico Kelley MD LAB BLOOD ORDERABLES Antonina l Result [facility] [place] [address] * (ABNORMAL) CBC with auto differential (07/04/2024 9:39 PM [employer]) [facility] WBC 8.7 3.8 - 9.9 K/cumm Hgb 10.1(L) 13.0 - 17.5 g/dL [facility] Hct 31.6(L) 38.9 - 50.3 % [facility] Plt 260 150 - 400 K/cumm [facility] MPV 9.9 9.1 - 12.3 fL [facility] RBC 4.18(L) 4.30 - 5.80 M/cumm [facility] MCV 75.6(L) 81.3 - 96.4 fL [facility] MCH 24.2(L) 27.1 - 33.3 pg [facility] MCHC 32.0(L) 32.3 - 35.7 g/dL [facility] RDW CV 16.9(H) 11.1 - 14.9 % [facility] RDW SD 45.7 35.7 - 48.1 fL [facility] NRBC abs 0.00 0.00 - 0.01 K/cumm [facility] Blood 07/04/2024 9:39 PM [employer] 07/04/2024 9:53 PM [employer] us Federico Kelley MD LAB BLOOD ORDERABLES Antonina l Result [facility] Department [place] [address] * (ABNORMAL) Basic metabolic panel (07/04/2024 9:39 PM [employer]) [facility] Sodium 138 135 - 145 mmol/L Potassium, pl 3.7 3.3 - 4.9 mmol/L [facility] Chloride 104 97 - 110 mmol/L [facility] CO2 27 22 - 32 mmol/L [facility] Anion gap 7 2 - 15 mmol/L [facility] BUN 14 6 - 25 mg/dL [facility] Creatinine 1.23 0.80 - 1.30 mg/dL [facility] Glucose 106 70 - 199 mg/dL [facility] Comment: Interpretive Data Fasting glucose >/= 126 [...] 2022. Calcium 8.1(L) 8.5 - 10.3 mg/dL [facility] Blood 07/04/2024 9:39 PM [employer] 07/04/2024 9:53 PM [employer] Federico Kelley MD LAB BLOOD ORDERABLES Antonina l Result [facility] [place] [address] * US Kidney Complete (07/04/2024 5:13 PM [employer]) Anatomical Region Laterality Modality Kidney N/A Ultrasound 07/04/2024 5:36 PM [employer] Impressions 07/04/2024 5:46 PM [employer] Mixed cystic and solid lesion in the [...] Yeimy Billingsley M.D. Narrative 07/04/2024 5:46 PM [employer] EXAMINATION: COMPLETE RENAL SONOGRAM HISTORY: ??Left-sided flank [...] * Blood culture Blood (07/04/2024 4:57 PM [employer]) Report Final Report: No growth Blood 07/04/2024 4:57 PM [employer] 07/04/2024 5:10 PM [employer] Narrative JOE [facility]RA[facility] - 07/09/2024 7:00 AM [employer] Collection->Peripheral 1. ?Blood cultures are incubated for [...] characteristics have been verified by the [facility] Microbiology Laboratory. For questions about this culture, contact the Microbiology Laboratory at [phone]. Interpretive data was last revised on 24. Federico Kelley MD LAB MICROBIOLOGY - GENERA L ORDERABLES Final Result [facility] [place] [address] * (ABNORMAL) Blood culture Blood (07/04/2024 4:57 PM [employer]) Direct Specimen Exam Molecular Analysis: Staphylococcus species detected by the neer[employer] eplex BCID-GP panel. Single positive culture may represent contamination. This is most suggestive of a coagulase-negative Staphylococcus species. Please refer to final culture-based result for confirmation. This test does not exclude the possibility of a mixed bacterial infection. Notification of: Staphylococcus species called to and read back by: Dorothy Martinez MD ([phone]) on 07/05/2024 10:24 by: Munira Blair MT Direct Specimen Exam Stain: Gram Positive Cocci in clusters Time to culture positivity (aerobic media): 14.3 hours Notification of: Gram Positive Cocci in clusters called to and read back by: MD Michelle ([phone]) on 07/05/2024 08:19 by: Munira Blair MT [facility] Report Final Report: Staphylococcus haemolyticus Single blood culture positive for this microorganism. ??Isolate is a possible contaminant. If a similar isolate is recovered from a second blood culture collected within 3 days of this culture, both will be evaluated and, if determined to be the same species, antimicrobial susceptibility testing will be performed. (.) [facility] Organism STAPHYLOCOCCUS HAEMOLYTICUS [facility] Blood 07/04/2024 4:57 PM [employer] 07/04/2024 5:09 PM [employer] Narrative [facility] - 07/09/2024 8:42 PM [employer] Collection->Peripheral 1. ?Blood cultures are incubated for [...] characteristics have been verified by the [facility] Microbiology Laboratory. For questions about this culture, contact the Microbiology Laboratory at [phone]. Interpretive data was last revised on 24. us Federico Kelley MD LAB MICROBIOLOGY - GENERA L ORDERABLES Final Result [facility] [place] [address] * MRI Brain Incl Orbits W WO Contrast (07/04/2024 2:42 PM [employer]) Anatomical Region Laterality Modality Head and Neck N/A Magnetic Resonan ce 07/04/2024 3:23 PM [employer] Impressions 07/04/2024 3:36 PM [employer] No MR evidence of acute intracranial abnormality. [...] Gwendolyn Gonzalez M.D. Narrative 07/04/2024 3:36 PM [employer] EXAMINATION: 1. Magnetic resonance imaging (MRI) of [...] it. Electronically signed by: Gwendolyn Gonzalez M.D. Nando Kennedy MD IMG MRI PROCEDURES Final Resul t * CT Abdomen Pelvis W Contrast (07/04/2024 12:25 PM [employer]) Anatomical Region Laterality Modality Body N/A Computed Tomogra phy 07/04/2024 12:3 4 PM [employer] Impressions 07/04/2024 12:34 PM [employer] Bilateral pyelonephritis and pyelitis. Electronically signed by: Juan Mason M.D. Narrative 07/04/2024 12:34 PM [employer] EXAMINATION: ??Computed tomography of the abdomen and [...] Sepsis Lactate w/ Reflex (07/04/2024 11:28 AM [employer]) [facility] Sepsis Lactate 0.6(L) 0.7 - 2.0 mmol/L Blood 07/04/2024 11:2 8 AM [employer] 07/04/2024 11:46 AM [employer] Karen Barrientos MD LAB BLOOD ORDERABLES Final Result [facility] [place] [address] * (ABNORMAL) Blood culture Blood (07/04/2024 11:28 AM [employer]) [facility] Direct Specimen Exam Molecular Analysis: Presumptive Escherichia coli detected by neer[employer]lex BCID-GN panel. This test does not exclude the possibility of a mixed bacterial infection. Notification of: Escherichia coli called to and read back by: Martha Haynes MD [phone] on 07/05/2024 02:55:57 by: Peyton Linn MT Direct Specimen Exam Stain: Gram Negative Bacilli Time to culture positivity (aerobic media): 10.9 hours Notification of: Gram Negative Bacilli called to and read back by: Peter Castle MD [phone] on 07/04/2024 23:43:05 by: Peyton Linn MT [facility] Report Final Report: Escherichia coli (.) [facility] Organism ESCHERICHIA COLI [facility] Blood 07/04/2024 11:2 8 AM [employer] 07/04/2024 11:49 AM [employer] Narrative [facility] - 07/09/2024 2:38 PM [employer] Collection->Peripheral 1. ?Blood cultures are incubated for [...] characteristics have been verified by the [facility]biology Laboratory. For questions about this culture, contact the Microbiology Laboratory at [phone]. Interpretive data was last revised on 24. [...] MICROBIOLOGY - G ENERAL ORDERABLES Final Result [facility] [place] [address] * Blood culture Blood (07/04/2024 11:28 AM [employer]) Report Final Report: No growth Blood 07/04/2024 11:2 8 AM [employer] 07/04/2024 11:49 AM [employer] Narrative [facility] - 07/08/2024 12:00 PM [employer] Collection->Peripheral 1. ?Blood cultures are incubated for [...] characteristics have been verified by the [facility]biology Laboratory. For questions about this culture, contact the Microbiology Laboratory at [phone]. Interpretive data was last revised on 24. Karen Barrientos MD LAB MICROBIOLOGY - G ENERAL ORDERABLES Final Result [facility] [place] [address] * POCUS Retroperitoneal (AAA or Renal) (07/04/2024 11:21 AM [employer]) Anatomical Region Laterality Modality Other 07/04/2024 11:0 9 AM [employer] Narrative 07/07/2024 12:53 PM [employer] Performed by: Roma Mckoy Renal/Bladder: ?Exam Information: [...] al Result * eGFR (07/04/2024 10:07 AM [employer]) eGFR >90 >=60 mL/min/1. 73 m2 Comment: [...] reviewed 2021. Blood 07/04/2024 10:0 7 AM [employer] 07/04/2024 10:27 AM [employer] Nando Kennedy MD LAB BLOOD ORDERABLES Final Res ult [facility] [place] [address] * (ABNORMAL) Urine culture Urine (07/04/2024 10:07 AM [employer]) Report Final Report: Greater than or equal to 100,000 colonies/mL of Escherichia coli Plus growth of clinically insignificant bacterial vaibhav. (.) Organism ESCHERICHIA COLI [facility] Organism PLUS GROWTH OF CLINICALLY INSIGNIFICANT VAIBHAV. [facility] Urine 07/04/2024 10:0 7 AM [employer] 07/04/2024 11:42 AM [employer] Narrative [facility] - 07/06/2024 8:47 AM [employer] Urine culture reflexed based upon urinalysis results. Testing performed by [facility]biology Laboratory ([phone]) Organism Antibiotic Method Susceptibility Escherichia coli Ampicillin [...] INTERPRETATION Susceptible Escherichia coli Cefdinir INTERPRETATION Susceptible us Nando Kennedy MD LAB MICROBIOLOGY - GENERAL ORD ERABLES Final Result Performing Organization Address [facility] Co de Phone Number [facility] [place] [address] * (ABNORMAL) Urinalysis, microscopic only (07/04/2024 10:07 AM [employer]) Pathologist [facility] WBC, ur >50(A) 0 - 5 /HPF RBC, ur 11-20(A) 0 - 2 /HPF [facility] Bacteria, ur 4+(A) [facility] Mucous, ur Present(A) [facility] Amorphous crystals, ur 1+(A) [facility] Culture Reflex Comment Reflex to urine culture will be performed. [facility] Urine 07/04/2024 10:0 7 AM [employer] 07/04/2024 10:22 AM [employer] us Nando Kennedy MD LAB URINE ORDERABLES Final Res ult Performing Organization Address [facility] de Phone Number [facility] [place] [address] * (ABNORMAL) Differential, auto (07/04/2024 10:07 AM [employer]) Pathologist [facility] Neutrophil abs 4.9 1.5 - 6.5 K/cumm Imm gran abs 0.1 0.0 - 0.1 K/cumm [facility] Lymphocyte abs 1.2 0.8 - 3.3 K/cumm [facility] Monocyte abs 0.9(H) 0.2 - 0.8 K/cumm [facility] Eosinophil abs 0.0 0.0 - 0.5 K/cumm [facility] Basophil abs 0.0 0.0 - 0.1 K/cumm [facility] Neutrophil pct 69.4 % [facility] Comment: Interpretive Data Percent cell count reference ranges are not reported, since discordance with absolute values may lead to misinterpretation of CBC data. Current Interpretive Data was last revised on 2017. Imm gran pct 1.7 % [facility] [place] Comment: Interpretive Data Percent cell count reference ranges are not reported, since discordance with absolute values may lead to misinterpretation of CBC data. Current Interpretive Data was last revised on 2017. Lymphocyte pct 16.6 % [facility] [place] Comment: Interpretive Data Percent cell count reference ranges are not reported, since discordance with absolute values may lead to misinterpretation of CBC data. Current Interpretive Data was last revised on 2017. Monocyte pct 11.9 % [facility] [place] Comment: Interpretive Data Percent cell count reference ranges are not reported, since discordance with absolute values may lead to misinterpretation of CBC data. Current Interpretive Data was last revised on 2017. Eosinophil pct 0.1 % [facility] [place] Comment: Interpretive Data Percent cell count reference ranges are not reported, since discordance with absolute values may lead to misinterpretation of CBC data. Current Interpretive Data was last revised on 2017. Basophil pct 0.3 % [facility] Comment: Interpretive Data Percent cell count reference ranges are not reported, since discordance with absolute values may lead to misinterpretation of CBC data. Current Interpretive Data was last revised on 2017. Blood 07/04/2024 10:0 7 AM [facility] 07/04/2024 10:27 AM [employer] [employer] us Nando Kennedy MD LAB BLOOD ORDERABLES Final Res ult [facility] [place] [address] * (ABNORMAL) T-helper cells (CD4) count (07/04/2024 10:07 AM [facility]) CD4 pct 12(L) 31 - 64 % CD4 Absolute 132(L) 365 - 1,294 cells/mcL [facility] Blood 07/04/2024 10:0 7 AM [facility] 07/04/2024 10:24 AM [employer] [employer] us Nando Kennedy MD LAB BLOOD ORDERABLES Final Res ult Performing Organization Address City/[facility]/ZIP Co de Phone Number JOE [facility] [place] [address] * (ABNORMAL) Urinalysis reflex to microscopic and culture Urine (07/04/2024 10:07 AM [facility]) Color, ur Yellow Yellow Clarity, ur Cloudy(A) Clear [facility] Specific gravity, ur 1.012 1.003 - 1.030 [facility] pH, urine 6.5 [facility] Comment: Interpretive Data ? Urine pH is affected by diet, medications, systemic acid-base disturbances, and renal tubular function. ??pH may affect urinary stone formation. ??For example, urine pH below 6.0 may help reduce the tendency for calcium phosphate stones and pH greater than 6.0 may reduce the tendency for uric acid stone formation. Source: [facility] Current Interpretive Data was last revised on 2017 Protein, ur ql 1+(A) Negative [facility] [place] Glucose, ur ql Negative Negative [facility] Ketones, ur Negative Negative [facility] [place] Bilirubin, ur Negative Negative [facility] [place] Blood, ur 2+(A) Negative [facility] [place] Urobilinogen, ur <2.0 <2.0 mg/dL [facility] Nitrite, ur Positive(A) Negative [facility] [place] Leukocyte esterase, ur 3+(A) Negative [facility] [place] UA reflex comment Reflex to microscopic UA will be performed. [facility] Urine 07/04/2024 10:0 7 AM [facility] 07/04/2024 10:22 AM [facility] [employer] us Nando Kennedy MD LAB MICROBIOLOGY - GENERAL ORD ERABLES Final Result Performing Organization Address [facility]/ZIP Co de Phone Number JOE [facility] Department [place] [address] * Lipase (07/04/2024 10:07 AM [facility]) Lipase 55 10 - 99 Units/L Blood 07/04/2024 10:0 7 AM [facility] 07/04/2024 10:27 AM [employer] [employer] us Nando Kennedy MD LAB BLOOD ORDERABLES Final Res ult [facility] [place] [address] * (ABNORMAL) Comprehensive metabolic panel (07/04/2024 10:07 AM [facility]) Sodium 142 135 - 145 mmol/L Potassium, pl 3.8 3.3 - 4.9 mmol/L [facility] Chloride 109 97 - 110 mmol/L [facility] CO2 23 22 - 32 mmol/L [facility] Anion gap 10 2 - 15 mmol/L [facility] BUN 13 6 - 25 mg/dL [facility] Creatinine 1.05 0.80 - 1.30 mg/dL [facility] Glucose 106 70 - 199 mg/dL [facility] Comment: Interpretive Data Fasting glucose >/= 126 [...] 2022. Calcium 8.7 8.5 - 10.3 mg/dL [facility] Bilirubin, total 0.3 0.1 - 1.2 mg/dL [facility] Protein, pl 7.2 6.5 - 8.5 g/dL [facility] Albumin 3.2(L) 3.5 - 5.0 g/dL [facility] Alk phos 88 40 - 130 Units/L [facility] ALT 41 7 - 55 Units/L [facility] AST 54(H) 10 - 50 Units/L [facility] Blood 07/04/2024 10:0 7 AM [facility] 07/04/2024 10:27 AM [employer] Nando Kennedy MD LAB BLOOD ORDERABLES Final Res ult Performing Organization Address [facility] Co de Phone Number [facility] Department [place] [address] * (ABNORMAL) CBC with auto differential (07/04/2024 10:07 AM [facility]) [facility] WBC 7.1 3.8 - 9.9 K/cumm Hgb 10.9(L) 13.0 - 17.5 g/dL [facility] Hct 34.3(L) 38.9 - 50.3 % [facility] Plt 262 150 - 400 K/cumm [facility] MPV 10.3 9.1 - 12.3 fL [facility] RBC 4.50 4.30 - 5.80 M/cumm [facility] MCV 76.2(L) 81.3 - 96.4 fL [facility] MCH 24.2(L) 27.1 - 33.3 pg [facility] MCHC 31.8(L) 32.3 - 35.7 g/dL [facility] RDW CV 16.9(H) 11.1 - 14.9 % [facility] RDW SD 46.5 35.7 - 48.1 fL [facility] NRBC abs 0.00 0.00 - 0.01 K/cumm [facility] Blood 07/04/2024 10:0 7 AM [facility] 07/04/2024 10:27 AM [employer] Nando Kennedy MD LAB BLOOD ORDERABLES Final Res ult Performing Organization Address City/[facility]/ZIP Co de Phone Number [facility] Department [place] [address] documented in this encounter Visit Diagnoses Diagnosis Pyelonephritis- Primary Unspecified pyelonephritis Abnormal involuntary movements Pyelonephritis Unspecified pyelonephritis Severe malnutrition (CMS/HCC) Nutritional marasmus documented in this encounter Admitting Diagnoses Diagnosis Pyelonephritis Unspecified pyelonephritis documented in this encounter Administered Medications Inactive Administered Medications - up to 3 most recent administrations Medication Order MAR Action Action Date Dose Rate Site acetaminophen (TYLENOL) tablet 1,000 mg 1,000 mg, oral, Once, On Sun07/04/24 at 1015, For 1 dose Given 07/04/2024 10:30 AM [facility] 1,000 mg acetaminophen (TYLENOL) tablet 1,000 mg 1,000 mg, oral, Every 8 hours PRN, 1st line for pain, Starting on Sun07/04/24 at 1544 Given 07/04/2024 3:58 PM [facility] 1,000 mg acetaminophen (TYLENOL) tablet 1,000 mg 1,000 mg, oral, Every 8 hours PRN, 1st line for pain, fever, Starting on Sun07/05/24 at 0418 Given 07/05/2024 4:27 AM [facility] 1,000 mg jhtwxctngkv-rtxqxxakvfobw-iiyod ovir (BIKTARVY) 50-200-25 mg per tablet 1 tablet 1 tablet, oral, Daily, First dose on Sun07/04/24 at 1745, May be dissolved in 240 mL of water. Give 2 hrs before or 6 hrs after MVI, antacids, or other products containing sucralfate, magnesium, aluminum, iron, or zinc., Indications: HIV infectionIndications:HIV infection Given 07/08/2024 8:00 AM [facility] 1 tablet Given 07/07/2024 8:50 AM [facility] 1 tablet Given 07/06/2024 8:41 AM [facility] 1 tablet cefepime (MAXIPIME) 2,000 mg/20 mL in sterile water (premix) 2,000 mg 2,000 mg, intravenous, at 240 mL/hr, Administer over 5 Minutes, Every 8 hours scheduled, First dose on Sun07/05/24 at 0030, Indications: Blood Stream/Endovascular InfectionIndications:Blood Stream/Endovascular Infection New Bag 07/06/2024 4:56 AM [facility] 2,000 mg 2 40 mL/hr New Bag 07/05/2024 10:14 PM [facility] 2,000 mg 240 mL/hr New Bag 07/05/2024 12:42 PM [facility] 2,000 mg 240 mL/hr cefTRIAXone (ROCEPHIN) 1,000 mg/10 mL in sterile water (premix) 1,000 mg 1,000 mg, intravenous, at 120 mL/hr, Administer over 5 Minutes, Once, On Sun07/04/24 at 1048, For 1 dose, Indications: pyelonephritisIndications:pyelonep hritis Given 07/04/2024 11:29 AM [facility] 1,000 mg 120 mL/hr cefTRIAXone (ROCEPHIN) 2,000 mg/20 mL in sterile water (premix) 2,000 mg 2,000 mg, intravenous, at 240 mL/hr, Administer over 5 Minutes, Every 12 hours scheduled, First dose on Sun07/06/24 at 1300, Indications: Blood Stream/Endovascular InfectionIndications:Blood Stream/Endovascular Infection Given 07/07/2024 12:53 AM [facility] 2,000 mg 240 mL/hr Given 07/06/2024 3:22 PM [facility] [employer] 2,000 mg 240 mL/hr cefTRIAXone (ROCEPHIN) 2,000 mg/20 mL in sterile water (premix) 2,000 mg 2,000 mg, intravenous, at 240 mL/hr, Administer over 5 Minutes, Every 24 hours scheduled, First dose (after last modification) on Sun07/08/24 at 0000, Indications: Blood Stream/Endovascular InfectionIndications:Blo od Stream/Endovascular Infection Given 07/08/2024 12:51 AM [facility] 2,000 mg 240 mL/hr DULoxetine DR (CYMBALTA) extended release capsule 60 mg 60 mg, oral, Daily, First dose on Sun07/04/24 at 1745, Capsule may be opened and contents mixed with applesauce or apple juice ONLY. Do not crush or chew capsule, On hold since 07/05/2024 at 0413 until manually unheld Given 07/04/2024 9:48 PM [facility] 60 mg enoxaparin (LOVENOX) syringe 40 mg 40 mg, subcutaneous, Daily (for enoxaparin), First dose on Sun07/04/24 at 2100, Indications: Deep Vein Thrombosis PreventionIndications:De ep Vein Thrombosis Prevention Given 07/05/2024 10:14 PM [facility] 40 mg Left Lower Abdomen Given 07/04/2024 9:48 PM [facility] 40 mg Le ft Lower Abdomen folic acid (FOLVITE) tablet 1 mg 1 mg, oral, Daily, First dose on 07/05/24 at 1345, For 5 days, Each tablet contains 1 mg of folic acid (1.67 mg DFE)., Indications: Treatment of known or suspected Wernicke's EncephalopathyIndications:Treatment of known or suspected Wernicke's Encephalopathy Given 07/08/2024 8:00 AM [facility] 1 mg Given 07/07/2024 8:50 AM [facility] 1 mg Given 07/06/2024 8:41 AM [facility] 1 mg gadoterate meglumine injection 15 mL 15 mL, intravenous, Once in imaging, contrast, Starting on Sun07/04/24 at 1421, For 1 dose Contrast Given 07/04/2024 2:21 PM [facility] 15 mL gadoterate meglumine injection 15 mL 15 mL, intravenous, Once in imaging, contrast, Starting on Sun07/06/24 at 1324, For 1 dose Contrast Given 07/06/2024 1:24 PM [facility] 12 mL HYDROmorphone (DILAUDID) injection 0.5 mg 0.5 mg, intravenous, Administer over 2 Minutes, Once, On Sun07/04/24 at 1135, For 1 dose Given 07/04/2024 11:46 AM [facility] 0.5 mg hydrOXYzine (ATARAX) tablet 25 mg 25 mg, oral, Every 4 hours PRN, anxiety, Starting on 07/05/24 at 1238 Given 07/06/2024 8:41 AM [facility] 25 mg Given 07/06/2024 1:28 AM [facility] 25 mg Given 07/05/2024 12:46 PM [facility] 25 mg ibuprofen (ADVIL,MOTRIN) tablet 600 mg 600 mg, oral, Once, On 07/05/24 at 0745, For 1 dose Given 07/05/2024 9:28 AM [facility] 600 mg influenza trivalent [id number] (FLULAVAL,FLUARIX,FLUZONE) 45 mcg (15 mcg x 3)/0.5 mL vaccine (STANDARD age 6 months and up) 0.5 mL 0.5 mL, intramuscular, During hospitalization, immunization, Starting on 07/05/24 at 0952, For 1 dose, Indications: influenza vaccinationIndications:influenza vaccination ioversoL (OPTIRAY 350) syringe 75 mL 75 mL, intravenous, Once in imaging, contrast, Starting on Sun07/04/24 at 1220, For 1 dose Contrast Given 07/04/2024 12:25 PM [facility] 75 mL morphine injection 4 mg 4 mg, intravenous, Administer over 4 Minutes, Once, On Sun07/04/24 at 1523, For 1 dose Given 07/04/2024 3:48 PM [facility] 4 mg ondansetron (ZOFRAN) injection 4 mg 4 mg, intravenous, Administer over 2 Minutes, Once, On Sun07/04/24 at 1049, For 1 dose Given 07/04/2024 11:29 AM [facility] 4 mg ondansetron (ZOFRAN) tablet 4 mg 4 mg, oral, Every 6 hours PRN, nausea, vomiting, Starting on Sun07/06/24 at 0753 polyvinyl alcohol-povidone (REFRESH CLASSIC) 1.4-0.6 % ophthalmic solution 1 drop 1 drop, each eye, 3 times daily, First dose on Sun07/05/24 at 0900 Given 07/08/2024 8:00 AM [facility] 1 drop Given 07/07/2024 8:45 PM [facility] 1 drop Given 07/07/2024 3:19 PM [facility] 1 drop psyllium (aspartame) SF (METAMUCIL SF) 3.4 gram packet 1 packet 1 packet, oral, Daily, First dose on Sun07/07/24 at 1030 Given 07/08/2024 8:00 AM [facility] 1 packet Given 07/07/2024 11:24 AM [facility] 1 packet ramelteon (ROZEREM) tablet 8 mg 8 mg, oral, Nightly PRN, sleep, Starting on Sun07/04/24 at 1744, Indications: Sleep-Onset InsomniaIndications:Sleep-Onset Insomnia Given 07/06/2024 10:17 PM [facility] 8 mg sodium chloride 0.9% flush 0.5-20 mL 0.5-20 mL, intra-catheter, Every 8 hours scheduled (alternate), First dose on Sun07/04/24 at 1745, Flush volume based on line type and size. Given 07/08/2024 12:55 AM [facility] 10 mL Given 07/07/2024 2:09 PM [facility] 10 mL Given 07/07/2024 8:50 AM [facility] 10 mL sulfamethoxazole-trimethoprim (BACTRIM DS) 800-160 mg per tablet 160 mg of trimethoprim 160 mg of trimethoprim, oral, 3 times weekly (Once per day on Sunday), First dose on Sun07/04/24 at 1745, For 7 doses, Indications: Pneumocystis/Toxoplasmosis ProphylaxisIndications:Pneumoc ystis/Toxoplasmosis Prophylaxis Given 07/07/2024 8:50 AM [facility] 160 mg of trimethoprim Given 07/04/2024 7:00 PM [facility] 160 mg of trimethoprim thiamine (VITAMIN B-1) 500 mg in sodium chloride 0.9% 100 mL IVPB 500 mg, intravenous, at 210 mL/hr, Administer over 30 Minutes, Every 8 hours, First dose on Sun07/05/24 at 1345, For 3 days, Indications: Treatment of known or suspected Wernicke's EncephalopathyIndications:Treatment of known or suspected Wernicke's Encephalopathy New Bag 07/08/2024 4:41 AM [facility] 500 mg 210 mL/hr New Bag 07/07/2024 8:45 PM [employer] [employer] 500 mg 210 mL/hr New Bag 07/07/2024 2:02 PM [facility] 500 mg 210 mL/hr thiamine (VITAMIN B-1) tablet 250 mg 250 mg, oral, Daily, First dose on Sun07/08/24 at 1345, For 5 days, Indications: Treatment of known or suspected Wernicke's EncephalopathyIndications:Treatment of known or suspected Wernicke's Encephalopathy vancomycin 1,000 mg/200 mL in dextrose 5% (premix) 1,000 mg 1,000 mg (rounded from 1,030.5 mg = 15 mg/kg ? 68.7 kg), intravenous, Administer over 60 Minutes, Every 12 hours, First dose (after last modification) on Sun07/05/24 at 0930, Indications: Blood Stream/Endovascular InfectionIndications:Blood Stream/Endovascular Infection New Bag 07/07/2024 1:27 AM [facility] 1,000 mg New Bag 07/06/2024 3:28 PM [employer] [employer] 1,000 mg New Bag 07/06/2024 1:00 AM [facility] 1,000 mg documented in this encounter Discontinued Medications Medication Sig Discontinue Reason Start Date End Da te benzonatate (TESSALON) 100 mg capsuleIndications:Cou gh Take 1 capsule (100 mg total) by mouth 3 (three) times a day as needed for cough Patient Reported 06/26/2024 07/04/2024 buPROPion XL (WELLBUTRIN XL) 150 mg 24 hr tablet Take 1 tablet (150 mg total) by mouth daily Error 04/19/2024 07/08/2024 doxepin (SINEquan) 25 mg capsule Take 1 capsule (25 mg total) by mouth nightly for 15 days Error 04/14/2024 07/08/2024 ibuprofen (ADVIL,MOTRIN) 600 mg tablet Take 1 tablet (600 mg total) by mouth every 6 (six) hours as needed Error 04/13/2023 07/08/2024 traZODone (DESYREL) 50 mg tablet Take 1 tablet (50 mg total) by mouth nightly as needed Error 02/21/2024 07/08/2024 sulfamethoxazole-trime thoprim (BACTRIM DS) 800-160 mg per tabletIndications:Pneu mocystis/Toxoplasmosis Prophylaxis Take 1 tablet (160 mg of trimethoprim total) by mouth 3 (three) times a week 06/09/2024 07/08/2024 documented as of this encounter Active and Recently Administered Medications Times are shown in [employer] [employer]. Scheduled Medication Order 07/06/2024 07/07/2024 07/08/2024 bictegravir-emtricitabine -tenofovir (BIKTARVY) 50-200-25 mg per tablet 1 tablet 1 tablet, oral, Daily, First dose on Sun07/04/24 at 1745, May be dissolved in 240 mL of water. Give 2 hrs before or 6 hrs after MVI, antacids, or other products containing sucralfate, magnesium, aluminum, iron, or zinc., Indications: HIV infection 0841 (Given - Provider: Margo Clarke) 0850 (Given - Provider: Caitlyn Lanier RN) 0800 (Given - Provider: Geovanni Skaggs) cefepime (MAXIPIME) 2,000 mg/20 mL in sterile water (premix) 2,000 mg (CANCELED) 2,000 mg, intravenous, at 240 mL/hr, Administer over 5 Minutes, Every 8 hours scheduled, First dose on Sun07/05/24 at 0030, Indications: Blood Stream/Endovascular Infection 0456 (New Bag - Provider: Eva Childs) cefTRIAXone (ROCEPHIN) 2,000 mg/20 mL in sterile water (premix) 2,000 mg (CANCELED) 2,000 mg, intravenous, at 240 mL/hr, Administer over 5 Minutes, Every 12 hours scheduled, First dose on Sun07/06/24 at 1300, Indications: Blood Stream/Endovascular Infection 1522 (Given - Provider: Margo Clarke) 0053 (Given - Provider: Eva Childs) cefTRIAXone (ROCEPHIN) 2,000 mg/20 mL in sterile water (premix) 2,000 mg 2,000 mg, intravenous, at 240 mL/hr, Administer over 5 Minutes, Every 24 hours scheduled, First dose (after last modification) on Sun07/08/24 at 0000, Indications: Blood Stream/Endovascular Infection 0051 (Given - Provider: Chilo Palacios, VICTOR MANUEL) DULoxetine DR (CYMBALTA) extended release capsule 60 mg 60 mg, oral, Daily, First dose on Sun07/04/24 at 1745, Capsule may be opened and contents mixed with applesauce or apple juice ONLY. Do not crush or chew capsule, On hold since Sun07/05/2024 at 0413 until manually unheld 0900 (Not Given - Provider: Margo Clarke - Reason: See Provider Order) 0900 (Not Given - Provider: Caitlyn Lanier RN - Reason: See Provider Order) 0900 (Dose Auto Held - Provider: Caryl [place] MD)1632 (Unheld by Provider - Provider: Automatic Discharge Provider) enoxaparin (LOVENOX) syringe 40 mg 40 mg, subcutaneous, Daily (for enoxaparin), First dose on Sun07/04/24 at 2100, Indications: Deep Vein Thrombosis Prevention 2217 (Not Given - Provider: Eva Childs - Reason: Patient/family refused) 2045 (Not Given - Provider: Chilo Palacios RN - Reason: Patient/family refused) folic acid (FOLVITE) tablet 1 mg 1 mg, oral, Daily, First dose on Sun07/05/24 at 1345, For 5 days, Each tablet contains 1 mg of folic acid (1.67 mg DFE)., Indications: Treatment of known or suspected Wernicke's Encephalopathy 0841 (Given - Provider: Margo Clarke) 0850 (Given - Provider: Caitlyn Lanier RN) 0800 (Given - Provider: Geovanni Skaggs) polyvinyl alcohol-povidone (REFRESH CLASSIC) 1.4-0.6 % ophthalmic solution 1 drop 1 drop, each eye, 3 times daily, First dose on Sun07/05/24 at 0900 0841 (Given - Provider: Margo Clarke)1528 (Given - Provider: Margo Clarke)2217 (Given - Provider: Eva Childs) 0850 (Given - Provider: Caitlyn Lanier RN)1519 (Given - Provider: Rhonda Barth)2045 (Given - Provider: Chilo Palacios, RN) 0800 (Given - Provider: Geovanni Skaggs) psyllium (aspartame) SF (METAMUCIL SF) 3.4 gram packet 1 packet 1 packet, oral, Daily, First dose on Sun07/07/24 at 1030 1124 (Given - Provider: Caitlyn Lanier RN) 0800 (Given - Provider: Geovanni Skaggs) sodium chloride 0.9% flush 0.5-20 mL 0.5-20 mL, intra-catheter, Every 8 hours scheduled (alternate), First dose on Sun07/04/24 at 1745, Flush volume based on line type and size. 0100 (Given - Provider: Eva Childs)0845 (Given - Provider: Margo Clarke)1522 (Given - Provider: Margo Clarke) 0053 (Given - Provider: Eva Childs)0850 (Given - Provider: Caitlyn Lanier RN)1409 (Given - Provider: Caitlyn Lanier RN) 0055 (Given - Provider: Chilo Palacios, RN)0837 (Not Given - Provider: Geovanni Skaggs - Reason: Other) sulfamethoxazole-trimetho prim (BACTRIM DS) 800-160 mg per tablet 160 mg of trimethoprim 160 mg of trimethoprim, oral, 3 times weekly (Once per day on Sunday), First dose on Sun07/04/24 at 1745, For 7 doses, Indications: Pneumocystis/Toxoplasmosi s Prophylaxis 0850 (Given - Provider: Caitlyn Lanier RN) thiamine (VITAMIN B-1) 500 mg in sodium chloride 0.9% 100 mL IVPB (COMPLETED)(Linked Group 1) 500 mg, intravenous, at 210 mL/hr, Administer over 30 Minutes, Every 8 hours, First dose on Sun07/05/24 at 1345, For 3 days, Indications: Treatment of known or suspected Wernicke's Encephalopathy 0456 (New Bag - Provider: Eva Childs)1527 (New Bag - Provider: Margo Clarke)2217 (New Bag - Provider: Eva Childs) 0443 (New Bag - Provider: Eva Childs)1402 (New Bag - Provider: Caitlyn Lanier, VICTOR MANUEL)2045 (New Bag - Provider: Chilo Palacios, VICTOR MANUEL) 0441 (New Bag - Provider: Chilo Palacios RN) thiamine (VITAMIN B-1) tablet 250 mg(Linked Group 1) 250 mg, oral, Daily, First dose on Sun07/08/24 at 1345, For 5 days, Indications: Treatment of known or suspected Wernicke's Encephalopathy 1312 (Not Given - Provider: Geovanni Skaggs - Reason: Patient/family refused) vancomycin 1,000 mg/200 mL in dextrose 5% (premix) 1,000 mg (CANCELED) 1,000 mg (rounded from 1,030.5 mg = 15 mg/kg ? 68.7 kg), intravenous, Administer over 60 Minutes, Every 12 hours, First dose (after last modification) on Sun07/05/24 at 0930, Indications: Blood Stream/Endovascular Infection 0100 (New Bag - Provider: Eva Childs)1528 (New Bag - Provider: Margo Clarke) 0127 (New Bag - Provider: Eva Childs - Comment: patient had refused vanc. level trough lab draw) PRN Medication Order 07/06/2024 07/07/2024 07/08/2024 acetaminophen (TYLENOL) tablet 1,000 mg 1,000 mg, oral, Every 8 hours PRN, 1st line for pain, fever, Starting on Sun07/05/24 at 0418 Carrier Fluids for Secondary Infusion - 0.9% Sodium Chloride 30 mL, intravenous, As needed, For priming tubing and/or flushing, Starting on Sun07/04/24 at 1744, 0-250 ml/hr to flush line after IV infusions when no maintenance IV ordered. Infuse 30mL at the same rate as the secondary infusion. Run as primary IV, not intended for KVO. gadoterate meglumine injection 15 mL (COMPLETED) 15 mL, intravenous, Once in imaging, contrast, Starting on 07/06/24 at 1324, For 1 dose 1324 (Contrast Given - Provider: Dev Morales, RT) hydrOXYzine (ATARAX) tablet 25 mg 25 mg, oral, Every 4 hours PRN, anxiety, Starting on 07/05/24 at 1238 0128 (Given - Provider: Eva Childs)0841 (Given - Provider: Margo Clarke) influenza trivalent [id number] (FLULAVAL,FLUARIX,FLUZONE) 45 mcg (15 mcg x 3)/0.5 mL vaccine (STANDARD age 6 months and up) 0.5 mL 0.5 mL, intramuscular, During hospitalization, immunization, Starting on 07/05/24 at 0952, For 1 dose, Indications: influenza vaccination ondansetron (ZOFRAN) tablet 4 mg 4 mg, oral, Every 6 hours PRN, nausea, vomiting, Starting on Sun07/06/24 at 0753 ramelteon (ROZEREM) tablet 8 mg 8 mg, oral, Nightly PRN, sleep, Starting on Sun07/04/24 at 1744, Indications: Sleep-Onset Insomnia 2217 (Given - Provider: Eva Childs) sodium chloride 0.9% flush 0.5-20 mL 0.5-20 mL, intra-catheter, As needed, line care, Starting on Sun07/04/24 at 1744, Flush volume based on line type and size. Flush before and after each use. traZODone (DESYREL) tablet 50 mg 50 mg, oral, Nightly PRN, sleep, Starting on Sun07/04/24 at 1744, For 231 days Linked Groups Order Group 1: thiamine (VITAMIN B-1) 500 mg in sodium chloride 0.9% 100 mL IVPB (COMPLETED)Jump to med 500 mg, intravenous, at 210 mL/hr, Administer over 30 Minutes, Every 8 hours, First dose on 07/05/24 at 1345, For 3 days, Indications: Treatment of known or suspected Wernicke's Encephalopathy Followed by thiamine (VITAMIN B-1) tablet 250 mgJump to med 250 mg, oral, Daily, First dose on Sun07/08/24 at 1345, For 5 days, Indications: Treatment of known or suspected Wernicke's Encephalopathy documented in this encounter Orders Medications Ordered That Prasad ht Not Have Been Administered Count Last Ordered Date First Ordered Date ondansetron (ZOFRAN) tablet 4 mg 1 07/06/20 hydrOXYzine (ATARAX) tablet 25 mg 1 024 influenza trivalent 2023- 5 (FLULAVAL,FLUARIX,FLUZONE) 45 mcg (15 mcg x 3)/0.5 mL vaccine (STANDARD age 6 months and up) 0.5 mL 1 07/05/2024 thiamine (VITAMIN B-1) tablet 250 mg 1 06/22 vancomycin 1,000 mg/200 mL i n dextrose 5% (premix) 1,000 mg 1 07/05/2024 Carrier Fluids for Secondary Infusion - 0.9% Sodium Chloride 1 07/04/2024 sodium chloride 0.9% flush 0.5-20 mL 1 06/22 traZODone (DESYREL) tablet 50 mg 1 07/04/20 Lab Orders Without Results Count Last Ordered D ate First Ordered Date URINE CULTURE 1 07/04/2024 Nursing Count Last Ordered Date First Orde red Date NURSING COMMUNICATION 1 07/05/2024 ACTIVITY 1 07/04/2024 MAINTAIN IV ACCESS 1 07/04/2024 MEASURE POST VOID RESIDUAL 2 07/04/2024 NOTIFY PROVIDER (SPECIFY) 1 07/04/2024 WEIGH PATIENT 1 07/04/2024 Consult Count Last Ordered Date First Orde red Date CONSULT TO CHEMICAL DEPENDENCY 1 07/05/2024 IP CONSULT TO NUTRITION SERVICES 1 07/05/20 IV Count Last Ordered Date First Orde red Date INSERT PERIPHERAL IV 1 07/04/2024 Admission Count Last Ordered Date First Orde red Date ADMIT TO INPATIENT 1 07/04/2024 Discharge Count Last Ordered Date First Orde red Date DISCHARGE PATIENT 1 07/08/2024 documented in this encounter Additional Health Concerns [...] is undergoing Ring Surveillance for admission to [facility]. VICTOR MANUEL Ch [facility] 07/05/2024 07/05/2024 07/09/2024 10:55 AM [employer] C. difficile suspected 07/07/2024 07/07/202407/09 3:05 AM [employer] documented as of this encounter Care Teams Optometrist Assistant Relationship Specialty Start Date End Date Mady Sullivan MD [address] [facility] [address], [place] [address] PCP - General Infectious Diseases 10/12/23 No, Physician 10/12/23 documented as of this encounter
--- OUTSIDE RECORDS SUMMARY | 2024-08-10 03:32 | XMS_ITS | Encounter Summary ---
Author Organization [facility] Healthcare Address [address] [place] [address] Care Team Providers Care Aluminum Container Tester Name Role Phone Mady Sullivan MD Primary Care Provider No, Physician Unavailable Reason for Visit * Reason Comments Shortness of Breath Encounter Details Date Type Department Care Team (Late st Contact Info) Description 06/26/2024 9:44 AM NEUROPSYCHOLOGIST - 06/26/2024 12:21 PM NEUROPSYCHOLOGIST Emergency [facility] [address] [place] [address] Chas Friedman MD [address] [facility] [address] [place] [address] Viral URI with cough (Primary Dx) Discharge Disposition: Discharge to home or self care Social History Tobacco Use Types Packs/Day Years Used Date Smoking Tobacco: Former Cigarettes Passive Smoke Exposure: Current Smokeless Tobacco: Never [facility] Utilities Answer Date Recorded In the past 12 months has [facility], [employer], or water [employer] threatened to shut off services in your home? Patient declined 06/04/2024 Humiliation, Afraid, Rape, and Kick questionnair e Answer Date Recorded Within the last year, have y ou been afraid of your partner or ex-partner? No 02/24/2024 Within the last year, have y ou been humiliated or emotionally abused in other ways by your partner or ex-partner? No Within the last year, have y ou been kicked, hit, slapped, or otherwise physically hurt by your partner or ex-partner? No 02/24/2024 Within the last year, have y ou been raped or forced to have any kind of sexual activity by your partner or ex-partner? No 02/24/2024 Social Connection and Isolation Panel [NHANES] A nswer Date Recorded In a typical week, how many times do you talk on the phone with family, friends, or neighbors? Patient unable to answer 06/04/2024 How often do you get togethe r with friends or relatives? Patient unable to answer 06/04/2024 How often do you attend chur or gnosticism services? Patient unable to answer 06/04/2024 Do you belong to any clubs o r organizations such as taoist groups, unions, fraternal or athletic groups, or school groups? Patient unable to answer 06/04/2024 How often do you attend meet ings of the clubs or organizations you belong to? Patient unable to answer 06/04/2024 Are you , , di vorced, , never , or living with a partner? Never 06/04/2024 AUDIT-C Answer Date Recorded Q1: How often do you have a drink containing alcohol? Never 02/24/2024 Q2: How many drinks containi ng alcohol do you have on a typical day when you are drinking? Patient does not drink Q3: How often do you have si x or more drinks on one occasion? Never 02/24/2024 Overall Financial Resource Strain (CARDIA) Answe r Date Recorded How hard is it for you to pa y for the very basics like food, housing, medical care, and heating? Very hard 06/05/2024 PHQ-2 Answer Date Recorded PHQ-2 Total Score 4 04/07/2024 [facility] - Occupational Stress Questionnaire Answer Date Recorded Do you feel stress - tense, restless, nervous, or anxious, or unable to sleep at night because your mind is troubled all the time - these days? Only a little 02/24/2024 Exercise Vital Sign Answer Date Recorde d On average, how many days pe r week do you engage in moderate to strenuous exercise (like a brisk walk)? 0 days 02/24/2024 On average, how many minutes do you engage in exercise at this level? 0 min 02/24/2024 Hunger Vital Sign Answer Date Recorded Within the past 12 months, y ou worried that your food would run out before you got the money to buy more. Often true 06/04/20 24 Within the past 12 months, t he food you bought just didn't last and you didn't have money to get more. Often true 06/04/2024 PRAPARE - Transportation Answer Date Re corded In the past 12 months, has l ack of transportation kept you from medical appointments or from getting medications? Patient unable to answer 06/04/2024 In the past 12 months, has l ack of transportation kept you from meetings, work, or from getting things needed for daily living? Patient unable to answer 06/04/2024 Housing Stability Vital Sign Answer Jerrod e [...] or slept in a residential (including now)? No 10/15/2023 Housing Stability Vital Sign Answer Jerrod e Recorded In the last 12 months, was t here a time when you were not able to pay the mortgage or rent on time? Yes 06/04/2024 In the past 12 months, how m any times have you moved where you were living? 5 06/04/2024 At any time in the past 12 m [facility], were you homeless or living in a residential (including now)? Yes 06/04/2024 Personal Safety Answer Date Recorded Have you ever been in or are you currently in a harmful physical or emotional relationship or is someone making you feel afraid or unsafe? Denies 06/27/2024 Education Answer Date Recorded What is the highest level of school you have completed or the highest degree you have received? Bachelor's degree (e.g., BA, AB, BS) 02/24/2024 Sex and Gender Information Value Date Recorded Sex Assigned at Not on file Legal Sex Male 11:02 PM NEUROPSYCHOLOGIST Gender Identity Not on file Sexual Orientation Not on file Occupation Industry Job Start Date Job End Date unemployed Not on file Not on file Not on file documented as of this encounter Last Filed Vital Signs Vital Sign Reading Time Taken Comments Blood Pressure 147/84 06/26/2024 8:55 AM NEUROPSYCHOLOGIST Pulse 62 06/26/2024 8:55 AM NEUROPSYCHOLOGIST Temperature 36.4 ??C (97.6 ??F) 06/26/2024 8:55 AM CS T Respiratory Rate 16 06/26/2024 8:55 AM NEUROPSYCHOLOGIST Oxygen Saturation 97% 06/26/2024 8:55 AM NEUROPSYCHOLOGIST Inhaled Oxygen Concentration - - Weight 68 kg (149 lb 14.6 oz) 06/26/2024 8:55 AM NEUROPSYCHOLOGIST Height 182.9 cm (6' 0.01 ) 06/26/2024 8:55 AM CS T Body Mass Index 20.33 06/26/2024 8:55 AM NEUROPSYCHOLOGIST documented in this encounter Functional Status * Are you deaf or do you have serious difficulty hearing? Answer Date of Assessment Author No 02/24/2024 10:18 AM CDT Manda Hardin LARYNGOLOGIST * Are you blind or do you have serious difficulty seeing, even when wearing glasses? Answer Date of Assessment Author No 02/24/2024 10:18 AM CDT Manda Hardin LARYNGOLOGIST * Do you have serious difficulty walking or climbing stairs? Answer Date of Assessment Author No 02/24/2024 10:18 AM CDManda Ibrahim LARYNGOLOGIST * Do you have serious difficulty dressing or bathing? Answer Date of Assessment Author No 02/24/2024 10:18 AM CDT Manda Hardin LARYNGOLOGIST * Because of a physical, mental, or emotional condition, do you have serious difficulty doing errandsalone such as visiting the doctor? Answer Date of Assessment Author No 02/24/2024 10:18 AM CDT Manda Hardin LARYNGOLOGIST documented as of this encounter Mental Status * Because of a physical, mental, or emotional condition, do you have serious difficulty concentrating, remembering, or making decisions? (5 years old or older) Answer Entry Date Author No 02/24/2024 10:18 AM CDT Manda Hardin LARYNGOLOGIST documented in this encounter Discharge Instructions * Discharge Instructions* Remedios Núñez MD - 06/26/2024 11:34 AM NEUROPSYCHOLOGIST Your COVID, Flu and RSV test today is pending. We will call you with the results. Your symptoms arelikely due to a viral illness that your body will fight off in time. Avoid any strenuous activity until you are feeling better. For pain or fever, take ibuprofen 600 mg (3 of the ugnd-uuz-cqpxrnf 200mg tablets) up to 3 times a day as needed, and/or Tylenol 500-1000 mg up to 3 times a day as needed. It is safe to take these medications together and you can alternate them every 3 hours to help with your pain. Please do not take more than 3000 mg of Tylenol in 24 hours as this can put you at riskfor accidental overdose. Other home remedies that can help are herbal tea with honey, ice packs or heating pads to your sore muscles, staying well hydrated by drinking plenty of water, and rest. Do not return to work until you are fever free for 24 hours. If you develop unbearable sore throat even with medications, change in your voice, inability to swallow fluids, severe nausea and vomiting and are unable to stay hydrated, or other concerning symptoms, you may be developing a serious infection and should call your doctor, and if he/she cannot see you the same day return to the ER. OPSYCHOLOGIST documented in this encounter Medications at Time of Discharge ARIPiprazole (ABILIFY) 10 mg tabletIndications :Depression Treatment Adjunct Take 1 tablet (10 mg total) by mouth daily for 15 days 15 tablet 04/14/2024 bictegravir-emtri citabine-tenofovi r (BIKTARVY) 50-200-25 mg tablet Take 1 tablet by mouth daily 30 tablet 3 06/07/2024 5 loperamide (IMODIUM) 2 mg capsule Take 1 capsule (2 mg total) by mouth as needed for diarrhea 60 capsule 06/07/2024 buPROPion XL (WELLBUTRIN XL) 150 mg 24 hr tablet Take 1 tablet (150 mg total) by mouth daily 04/19/2024 4 ibuprofen (ADVIL,MOTRIN) 600 mg tablet Take 1 tablet (600 mg total) by mouth every 6 (six) hours as needed 04/13/2023 4 traZODone (DESYREL) 50 mg tablet Take 1 tablet (50 mg total) by mouth nightly as needed 02/21/2024 4 benzonatate (TESSALON) 100 mg capsuleIndication s:Cough Take 1 capsule (100 mg total) by mouth 3 (three) times a day as needed for cough 15 capsule 06/26/2024 4 doxepin (SINEquan) 25 mg capsule Take 1 capsule (25 mg total) by mouth nightly for 15 days 15 capsule 04/14/2024 4 sulfamethoxazole- trimethoprim (BACTRIM DS) 800-160 mg per tabletIndications :Pneumocystis/Tox oplasmosis Prophylaxis Take 1 tablet (160 mg of trimethoprim total) by mouth 3 (three) times a week 12 tablet 06/09/2024 4 documented as of this encounter Ordered Prescriptions Prescription Sig Dispense Quantity Refills Last Filled Start Date End Date benzonatate (TESSALON) 100 mg capsuleIndications :Cough Take 1 capsule (100 mg total) by mouth 3 (three) times a day as needed for cough 15 capsule 06/26/2024 4 documented in this encounter Discharge Disposition Disposition Code Departure Means Destination Comment s Discharge to home or self care documented in this encounter Progress Notes * Divya Abbott LCSW - 06/26/2024 12:21 PM CST [facility] contacted by RN requesting transportation assistance for pt at time of discharge. [facility] met with the pt and confirmed address [address] and that pt has access to the home. [facility] notes pt has Medicaid, SW requested ride via [facility] online portal. AIDE Cuevas LCSW OPSYCHOLOGIST documented in this encounter ED Notes * Glenny Hickman RN - 06/26/2024 11:17 AM CST Bed: [id number] Expected date: Expected time: Means of arrival: Comments: 3-2 Glenny Hickman RN 06/26/24 1117 OPSYCHOLOGIST * Chas Friedman MD - 06/26/2024 10:02 AM CST HPI Chief Complaint Patient presents with Shortness of Breath TRIAGE NOTE: SOB x1hr. +chills, fatigue. +COVID exposure. Hx HIV, suicide attempt OD, denies SI today. meth use yesterday. 28 yo M w PMHx of borderline personality, polysubstance use, and HIV presenting due to cough, chills, subjective fever for about a week. Notes multiple recent exposures to people with COVID. Also notes that overnight he woke up from sleep coughing and then had shortness of breath with lightheadedness and tingling in his extremities that resolved after about 20 minutes. Denies SI. Meth use yesterday. Patient History: Patient Active Problem List Diagnosis Date Noted Intentional benzodiazepine overdose, initial encounter ([facility]) 06/02/2024 Dental abscess 04/04/2024 Borderline personality disorder (CMS/HCC) ([facility]) 03/03/2024 Neutropenia ([facility]) 03/03/2024 [place] 03/03/2024 Suicide attempt ([facility]) 02/24/2024 Lower extremity pain, right 02/24/2024 Stimulant use disorder 02/24/2024 Suicide ideation 01/29/2024 Cannabis use disorder, severe ([facility]) 01/26/2024 Routine general medical examination at a health care facility 01/26/2024 PTSD (post-traumatic stress disorder) 10/12/2023 Vertigo 10/11/2023 Unspecified mood disorder ([facility]) 10/10/2023 HIV disease (CMS/HCC) ([facility]) 10/03/2023 Syphilis 10/03/2023 Inguinal hernia 10/03/2023 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[facility]) 10/03/2023 Plaque psoriasis 10/03/2023 Methamphetamine use disorder, moderate ([facility]) 10/03/2023 Borderline personality disorder, rule out other organic causes of unusual pEX/MSE 10/02/2023 HIV (human immunodeficiency virus infection) ([facility]) 10/30/2022 Skin lesion 10/30/2022 Painless rectal bleeding 10/30/2022 Depressive disorder 10/30/2022 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 Condyloma 10/29/2020 Past Medical History: Diagnosis Date Anal warts Borderline personality disorder (CMS/HCC) ([facility]) Depression prior suicide attempts (10/2023, 02/2024) Depression with suicidal ideation HIV (human immunodeficiency virus infection) ([facility]) HIV (human immunodeficiency virus infection) ([facility]) Dx 2018 Methamphetamine use disorder, moderate, in early remission ([facility]) Neuropathy (CMS/[facility]) PTSD (post-traumatic stress disorder) Syphilis (acquired) Rx'd [...] Unknown Substance and Sexual Activity Alcohol use: None Drug use: Yes Frequency: 3.0 times per week Types: Methamphetamines Comment: relapsed - meth used 3 days ago Sexual activity: Defer Partners: Male Social History Social History Narrative Merged History Encounter Data from: 03/01/24 Enc Dept: [facility] ED Born and raised: [place], moved to [facility] when 8 yo Currently lives: inpatient substance abuse rehab, pt says at [facility], but consult note says at [facility] Feels safe: yes Access to firearms: no currently while at inpatient substance abuse rehab Educ ation: per pt he graduated HS and college with a degree in computer science Work: Not currently employed, 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 Review of Systems negative except as otherwise stated above in HPI Physical Exam ED Triage Vitals [06/26/24 0855] Temp Pulse Resp BP SpO2 36.4 ??C (97.6 ??F) 62 16 147/84 97 % Temp src Heart Rate Source Patient Position BP Location FiO2 (%) Oral -- -- -- -- Height Height Method Weight Weight Method 1.829 m (6' 0.01 ) Estimated 68 kg (149 lb 14.6 oz) Estimated Physical Exam Vitals reviewed. Constitutional: General: He is not in acute distress. HENT: Head: Normocephalic and atraumatic. Mouth/Throat: Mouth: Mucous membranes are moist. Eyes: Extraocular Movements: Extraocular movements intact. Pupils: Pupils are equal, round, and reactive to light. Cardiovascular: Rate and Rhythm: Normal rate and regular rhythm. Pulmonary: Effort: Pulmonary effort is normal. Breath sounds: Normal breath sounds. No decreased breath sounds. Abdominal: General: Bowel sounds are normal. There is no distension. Tenderness: There is no abdominal tenderness. Musculoskeletal: General: Normal range of motion. Skin: General: Skin is warm and dry. Neurological: General: No focal deficit present. Mental Status: He is alert and oriented to person, place, and time. MDM Assessment: 28 y.o. male with PMHx of HIV, PSA, borderline personality presenting for evaluation ofcough, chills, fatigue x1 week. Around many people with COVID. Episode of SOB, tingling in extremities and lightheadedness after coughing fit today. Exam notable for slight intermittent cough, normalbreath sounds. Differential diagnoses, includes but not limited to: viral URI, PNA, PTX, bronchitis, PE, panic attack Plan: In consideration of the above differential diagnosis, the following orders were placed while the patient was in the Emergency Department. See ED course for pertinent results and imaging interpretation. Orders Placed This Encounter Procedures Influenza A/B, RSV, and COVID-19 PCR Nasopharyngeal XR Chest PA Lateral 2 Views Comprehensive metabolic panel CBC with auto differential Troponin I high-sensitivity series (baseline, 2hr, 4hr, 6hr) Differential, auto T-helper cells (CD4) count eGFR Continuous pulse oximetry when available EtCO2 monitoring when available DO NOT UNCHECK - ED rotor winder Standing Order: Shortness of Breath ECG 12 lead Saline lock IV The patient received the following medications: Medications - No data to display - Consults: none - Dispo: discharge Attending Summary of Care I Chas Friedman MD have seen and examined this patient. I have discussed/reviewed the history, physical exam and assessment with the resident. We are in agreement with treatment plan except as I have noted. ED Course as of 06/26/242122 Time: 06/26 1003 Value: XR Chest PA Lateral 2 Views Comment: Comparison is made to 06/02/2024 x-ray. The lungs are normal in appearance without pleural effusion or pneumothorax. The cardiomediastinal silhouette is normal. By: Remedios Núñez MD Time: 06/26 1135 Comment: Pt requesting discharge, feeling well enough to go. Will call with viral panel results. By: Remedios Núñez MD Viral URI with cough Remedios Núñez MD Resident 06/26/241648 Remedios Núñez MD Resident 06/26/241648 Chas Friedman MD 06/26/242122 OPSYCHOLOGIST OPSYCHOLOGIST OPSYCHOLOGIST * Divya Marinelli RN - 06/26/2024 8:51 AM CST SOB x1hr. +chills, fatigue. +COVID exposure. Hx HIV, suicide attempt OD, denies SI today. meth use yesterday. OPSYCHOLOGIST documented in this encounter Miscellaneous Notes * ED Procedure Note - Chas Friedman MD - 06/26/2024 12:21 PM NEUROPSYCHOLOGIST Associated Order(s): ECG 12 lead Procedure ECG 12 lead Date/Time: 06/26/2024 2:10 PM [...] workup in the ED Chas Friedman MD 06/26/24 1411 OPSYCHOLOGIST documented in this encounter Plan of Treatment Not on file documented as of this encounter Procedures Procedure Name Priority Date/Time Associated Diagnosis Comments ECG 12-LEAD STAT 06/26/2024 2:10 PM NEUROPSYCHOLOGIST INFLUENZA A/B, RSV, AND COVID-19 PCR Routine 06/26/2024 9:53 AM NEUROPSYCHOLOGIST TROPONIN I HIGH-SENSITIVITY SERIES (BASELINE, 2HR, 4HR, 6HR) STAT 06/26/2024 9:19 AM NEUROPSYCHOLOGIST EGFR STAT 06/26/2024 9:19 AM NEUROPSYCHOLOGIST DIFFERENTIAL AUTO STAT 06/26/2024 9:1 9 AM NEUROPSYCHOLOGIST CBC WITH AUTO DIFFERENTIAL STAT 06/26/2024 9:19 AM NEUROPSYCHOLOGIST COMPREHENSIVE METABOLIC PANEL STAT 06/26/2024 9:19 AM NEUROPSYCHOLOGIST XR CHEST PA LATERAL 2 VIEWS ED 06/26/2024 9:10 AM NEUROPSYCHOLOGIST documented in this encounter Results * ECG 12-LEAD (06/26/2024 2:10 PM NEUROPSYCHOLOGIST) Narrative [facility] - 06/26/2024 2:10 PM NEUROPSYCHOLOGIST Chas Friedman MD ? 06/26/2024 ??2:11 PM ECG 12 lead Date/Time: 06/26/2024 2:10 PM Performed by: Chsa Friedman MD Authorized by: Chas Friedman MD [...] up: further workup in the ED ?? us Chas Friedman MD ECG ORDERABLES Final Res ult [facility] * Influenza A/B, RSV, and COVID-19 PCR Nasopharyngeal (06/26/2024 9:53 AM NEUROPSYCHOLOGIST) [facility] COVID-19 RNA Negative Negative [facility] Influenza A RNA Negative Negative [facility] Influenza B RNA Negative Negative [facility] RSV RNA Negative Negative [facility] Comment: Interpretive data: Testing performed by [facility] ([phone]). This test is performed using the [employer] Xpert Xpress CoV-2/Flu/RSV plus assay. This is a multiplex, real-time reverse transcriptase PCR assay intended for the qualitative detection of nucleic acid from SARS-CoV-2, influenza A, influenza B, and respiratory syncytial virus. This assay has been cleared by the [place] Food and Drug administration. The performance characteristics have been verified by the [facility]. ??Results must be considered in the clinical context, and a negative result does not rule out infection. Interpretive Data last revised 2023 Nasopharyngeal 06/26/2024 9: 53 AM NEUROPSYCHOLOGIST 06/26/2024 10:04 AM NEUROPSYCHOLOGIST Narrative [facility] - 06/26/2024 11:46 AM NEUROPSYCHOLOGIST Is the Patient experiencing symptoms consistent with COVID?->Yes Chas Friedman MD LAB MICROBIOLOGY - GENERA L ORDERABLES Final Result [facility] Department [place] [address] [facility] * eGFR (06/26/2024 9:19 AM NEUROPSYCHOLOGIST) [facility] eGFR >90 >=60 mL/min/1. 73 m2 Comment: [...] last reviewed 2021. Blood 06/26/2024 9:19 AM NEUROPSYCHOLOGIST 06/26/2024 9:52 AM NEUROPSYCHOLOGIST us Chas Friedman MD LAB BLOOD ORDERABLES Antonina jhaveri Result [facility] Department [place] [address] * Differential, auto (06/26/2024 9:19 AM NEUROPSYCHOLOGIST) Neutrophil abs 1.6 1.5 - 6.5 K/cumm Imm gran abs 0.0 0.0 - 0.1 K/cumm [facility] Lymphocyte abs 1.7 0.8 - 3.3 K/cumm [facility] Monocyte abs 0.4 0.2 - 0.8 K/cumm [facility] Eosinophil abs 0.1 0.0 - 0.5 K/cumm [facility] Basophil abs 0.0 0.0 - 0.1 K/cumm [facility] Neutrophil pct 42.9 % [facility] Comment: Interpretive Data Percent cell count reference ranges are not reported, since discordance with absolute values may lead to misinterpretation of CBC data. Current Interpretive Data was last revised on 2017. Imm gran pct 0.3 % [facility] Comment: Interpretive Data Percent cell count reference ranges are not reported, since discordance with absolute values may lead to misinterpretation of CBC data. Current Interpretive Data was last revised on 2017. Lymphocyte pct 45.1 % [facility] Comment: Interpretive Data Percent cell count reference ranges are not reported, since discordance with absolute values may lead to misinterpretation of CBC data. Current Interpretive Data was last revised on 2017. Monocyte pct 9.5 % [facility] Comment: Interpretive Data Percent cell count reference ranges are not reported, since discordance with absolute values may lead to misinterpretation of CBC data. Current Interpretive Data was last revised on 2017. Eosinophil pct 1.4 % [facility] Comment: Interpretive Data Percent cell count reference ranges are not reported, since discordance with absolute values may lead to misinterpretation of CBC data. Current Interpretive Data was last revised on 2017. Basophil pct 0.8 % [facility] Comment: Interpretive Data Percent cell count reference ranges are not reported, since discordance with absolute values may lead to misinterpretation of CBC data. Current Interpretive Data was last revised on 2017. Blood 06/26/2024 9:19 AM NEUROPSYCHOLOGIST 06/26/2024 9:52 AM NEUROPSYCHOLOGIST Chas Friedman MD LAB BLOOD ORDERABLES Antonina jhaveri Result [facility] Department [place] [address] * Troponin I high-sensitivity series (baseline, 2hr, 4hr, 6hr) (06/26/2024 9:19 AM NEUROPSYCHOLOGIST) Trop I hs 4 <=35 ng/L Comment: Interpretive Data For further hscTnI resources including the diagnostic algorithm and an aid in interpretation, copy and paste this link: [email or web address] Current Interpretive Data last revised 2020. Blood 06/26/2024 9:19 AM NEUROPSYCHOLOGIST 06/26/2024 9:52 AM NEUROPSYCHOLOGIST Chas Friedman MD LAB BLOOD ORDERABLES Antonina l Result Performing Organization Address [facility] Co de Phone Number [facility] Department of Laboratories [place] [address] * (ABNORMAL) CBC with auto differential (06/26/2024 9:19 AM NEUROPSYCHOLOGIST) [facility] WBC 3.7(L) 3.8 - 9.9 K/cumm Hgb 13.5 13.0 - 17.5 g/dL [facility] Hct 43.3 38.9 - 50.3 % [facility] Plt 337 150 - 400 K/cumm [facility] MPV 9.6 9.1 - 12.3 fL [facility] RBC 5.46 4.30 - 5.80 M/cumm [facility] MCV 79.3(L) 81.3 - 96.4 fL [facility] MCH 24.7(L) 27.1 - 33.3 pg [facility] MCHC 31.2(L) 32.3 - 35.7 g/dL [facility] RDW CV 16.4(H) 11.1 - 14.9 % [facility] RDW SD 46.3 35.7 - 48.1 fL [facility] NRBC abs 0.00 0.00 - 0.01 K/cumm [facility] Blood 06/26/2024 9:19 AM NEUROPSYCHOLOGIST 06/26/2024 9:52 AM NEUROPSYCHOLOGIST Chas Friedman MD LAB BLOOD ORDERABLES Antonina l Result Performing Organization Address City/[facility]/ZIP Co de Phone Number [facility] Department of [employer] [place], [place] [id number] * (ABNORMAL) Comprehensive metabolic panel (06/26/2024 9:19 AM NEUROPSYCHOLOGIST) Pathologist [facility] Sodium 138 135 - 145 mmol/L Potassium, pl 4.4 3.3 - 4.9 mmol/L [facility] Chloride 101 97 - 110 mmol/L [facility] CO2 31 22 - 32 mmol/L [facility] Anion gap 6 2 - 15 mmol/L [facility] BUN 10 6 - 25 mg/dL [facility] Creatinine 0.84 0.80 - 1.30 mg/dL [facility] Glucose 84 70 - 199 mg/dL [facility] Comment: Interpretive Data Fasting glucose >/= [...] 2022. Calcium 9.6 8.5 - 10.3 mg/dL [facility] Bilirubin, total 0.3 0.1 - 1.2 mg/dL [facility] Protein, pl 9.0(H) 6.5 - 8.5 g/dL [facility] Albumin 4.6 3.5 - 5.0 g/dL [facility] Alk phos 80 40 - 130 Units/L [facility] ALT 39 7 - 55 Units/L [facility] AST 35 10 - 50 Units/L [facility] Blood 06/26/2024 9:19 AM NEUROPSYCHOLOGIST 06/26/2024 9:52 AM NEUROPSYCHOLOGIST us Chas Friedman MD LAB BLOOD ORDERABLES Antonina jhaveri Result [facility] Department [place] [address] * XR Chest PA Lateral 2 Views (06/26/2024 9:10 AM NEUROPSYCHOLOGIST) Anatomical Region Laterality Modality Body, Chest N/A Computed Radiogr aphy 06/26/2024 9:22 AM NEUROPSYCHOLOGIST Impressions 06/26/2024 9:35 AM NEUROPSYCHOLOGIST Comparison is made to 06/02/2024 x-ray. The lungs are normal in appearance without pleural effusion or pneumothorax. The cardiomediastinal silhouette is normal. Dictated by: Segundo Araiza M.D. (Ramanan) The radiology attending physician has personally reviewed this study, and had reviewed and/or edited this written report and agrees with it. Electronically signed by: Orly Miller M.D. Narrative 06/26/2024 9:35 AM NEUROPSYCHOLOGIST EXAMINATION: 2 view chest radiograph Procedure Note [...] MD IMG XR PROCEDURES Final R esult documented in this encounter Visit Diagnoses Diagnosis Viral URI with cough- Primary documented in this encounter Orders Lab Orders Without Results Count Last Ordered D ate First Ordered Date T-HELPER CELLS (CD4) COUNT 1 06/26/2024 Nursing Count Last Ordered Date First Orde red Date CAPNOGRAPHY MONITORING 1 06/26/2024 CONTINUOUS PULSE OXIMETRY 1 06/26/2024 MISCELLANEOUS NURSING CARE ORDER (SPECIFY) 1 06/26/2024 IV Count Last Ordered Date First Orde red Date SALINE LOCK IV 1 06/26/2024 documented in this encounter Additional Health Concerns Infection Onset Date Last Indicated Resolved Time COVID: Suspected 06/26/2024 06/26/2024 06/26/2024 11:47 AM NEUROPSYCHOLOGIST documented as of this encounter Care Teams Aluminum Container Tester Relationship Specialty Start Date End Date Mady Sullivan MD [facility] [address] [place] [address] PCP - General Infectious Diseases 10/12/23 No, Physician 10/12/23 documented as of this encounter
--- OUTSIDE RECORDS SUMMARY | 2024-08-10 03:32 | XMS_ITS | Encounter Summary ---
Author Organization [facility] Healthcare Address [address] [place] [address] Care Team Providers Care Lithography Contact Worker Name Role Phone Mady Sullivan MD Primary Care Provider No, Physician Unavailable Reason for Visit * Reason Comments Unsuccessful Phone Call 3 Encounter Details Date Type Department Care Team (Late st Contact Info) Description 06/12/2024 SHOP/CHAP Initial Outreach [facility] OP CASE MANAGEMENT [address] [place] [address] Nguyen Stephenson, VICTOR MANUEL [address] [facility] [address] [place] [address] Social History Tobacco Use Types Packs/Day Years Used Date Smoking Tobacco: Former Cigarettes Passive Smoke Exposure: Current Smokeless Tobacco: Never [facility] Utilities Answer Date Recorded In the past 12 months has [facility] [employer], gas, oil, or water [employer] threatened to shut off services in your [...] 06/04/2024 How often do you attend chur ch or uatsdin services? Patient unable to answer 06/04/2024 Do you belong to any clubs o r organizations such as religious groups, unions, fraternal or athletic groups, or [...] Date Recorded PHQ-2 Total Score 4 04/07/2024 [facility] - Occupational Stress Questionnaire Answer Date [...] or slept in a correction (including now)? No 10/15/2023 Housing Stability Vital Sign Answer Jerrod e Recorded In the last 12 months, was t here a time when you were not able to pay the mortgage or rent on time? Yes 06/04/2024 In the past 12 months, how m any times have you moved where you were living? 5 06/04/2024 At any time in the past 12 m [facility], were you homeless or living in a correction (including now)? Yes 06/04/2024 Personal Safety Answer Date Recorded Have you ever been in or are you currently in a harmful physical or emotional relationship or is someone making you feel afraid or unsafe? Denies 06/03/2024 Education Answer Date Recorded What is the highest level of school you have completed or the highest degree you have received? 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 Answer Date of Assessment Author No 02/24/2024 10:18 AM Manda Mcintyre Sherine, QA LEAD * Are you blind or do you have serious difficulty seeing, even when wearing glasses? Answer Date of Assessment Author No 02/24/2024 10:18 AM LAURO Summersjuan jose Manda Sherine, QA LEAD * Do you have serious difficulty walking or climbing stairs? Answer Date of Assessment Author No 02/24/2024 10:18 AM LAURO Summersjuan jose Mandakrissy Basurto QA LEAD * Do you have serious difficulty dressing or bathing? Answer Date of Assessment Author No 02/24/2024 10:18 AM LAURO Summersjuan jose Mandakrissy Basurto QA LEAD * Because of a physical, mental, or emotional condition, do you have serious difficulty doing errandsalone such as visiting the doctor? Answer Date of Assessment Author No 02/24/2024 10:18 AM TAYOJose HardinManda ingram QA LEAD documented as of this encounter Mental Status * Because of a physical, mental, or emotional condition, do you have serious difficulty concentrating, remembering, or making decisions? (5 years old or older) Answer Entry Date Author No 02/24/2024 10:18 AM TAYOJose Hardin Mandakrissy Basurto QA LEAD documented in this encounter Plan of Treatment Not on file documented as of this encounter Visit Diagnoses Not on filedocumented in this encounter Care Teams Lithography Contact Worker Relationship Specialty Start Date End Date Mady Sullivan MD [address] [address] PCP - General Infectious Diseases 10/12/23 No, Physician 10/12/23 documented as of this encounter
--- OUTSIDE RECORDS SUMMARY | 2024-08-10 03:32 | XMS_ITS | Encounter Summary ---
Author Organization [facility] Healthcare Address [address] [place] [address] Care Team Providers Care Coal Picker Name Role Phone Mady Sullivan MD Primary Care Provider No, Physician Unavailable Reason for Visit * Reason Comments Generalized Pain Encounter Details Date Type Department Care Team (Late st Contact Info) Description 07/01/2024 10:44 AM SEAMARK ADVANCED OPERATOR MAINTAINER - 07/01/2024 12:22 PM [facility] Emergency [facility] Emergency Department [address] [place] [address] Discharge Disposition: Left without being seen Social History Tobacco Use Types Packs/Day Years Used Date Smoking Tobacco: Former Cigarettes Passive Smoke Exposure: Current Smokeless Tobacco: Never [facility] [employer]com[employer] Answer Date Recorded In the past 12 months has [facility] [employer], gas, oil, or water [employer] threatened to shut off services in your [...] How often do you attend chur or latter day services? Patient unable to answer 06/04/2024 Do you belong to any clubs o r organizations such as scientology groups, unions, fraternal or athletic groups, or [...] Date Recorded PHQ-2 Total Score 4 04/07/2024 [facility] - [...] or slept in a chcf (including now)? No 10/15/2023 Housing Stability Vital Sign Answer Jerrod e Recorded In the last 12 months, was t here a time when you were not able to pay the mortgage or rent on time? Yes 06/04/2024 In the past 12 months, how m any times have you moved where you were living? 5 06/04/2024 At any time in the past [address] [facility], were you homeless or living in a chcf (including now)? 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 Answer Date of Assessment Author No 02/24/2024 10:18 AM Manda Mcintyre MSW * Are you blind or do you have serious difficulty seeing, even when wearing glasses? Answer Date of Assessment Author No 02/24/2024 10:18 AM Manda Mcintyre FIREPERSON * Do you have serious difficulty walking or climbing stairs? Answer Date of Assessment Author No 02/24/2024 10:18 AM Manda Mcintyre AIDE * Do you have serious difficulty dressing or bathing? Answer Date of Assessment Author No 02/24/2024 10:18 AM Manda Mcintyre FIREPERSON * Because of a physical, mental, or emotional condition, do you have serious difficulty doing errandsalone such as visiting the doctor? Answer Date of Assessment Author No 02/24/2024 10:18 AM Manda Mcintyre MSW documented as of this encounter Mental Status * Because of a physical, mental, or emotional condition, do you have serious difficulty concentrating, remembering, or making decisions? (5 years old or older) Answer Entry Date Author No 02/24/2024 10:18 AM Manda Mcintyre MSW documented in this encounter Medications at Time of Discharge ARIPiprazole (ABILIFY) 10 mg tabletIndications :Depression Treatment Adjunct Take 1 tablet (10 mg total) by mouth daily for 15 days 15 tablet 04/14/2024 bictegravir-emtri citabine-tenofovi r (BIKTARVY) 50-200-25 mg tablet Take 1 tablet by mouth daily 30 tablet 3 06/07/2024 5 gabapentin (NEURONTIN) 100 mg capsule Take 1 [...] 06/09/2024 4 documented as of this encounter Discharge Disposition Disposition Code Departure Means Destination Left without being seen documented in this encounter Miscellaneous Notes * ED Pre-Arrival Note - Catalina Richards RN - 07/01/2024 10:43 AM SEAMARK ADVANCED OPERATOR MAINTAINER Pre-Arrival Note EMS report: Pt here with pain all over x 2 months. Denies SI / HI. Pt agitated with EMS. Catalina Richards RN ARK ADVANCED OPERATOR MAINTAINER documented in this encounter Plan of Treatment Not on file documented as of this encounter Visit Diagnoses Not on filedocumented in this encounter Care Teams Coal Picker Relationship Specialty Start Date End Date Mady Sullivan MD [address] [facility] [address], [place] [address] PCP - General Infectious Diseases 10/12/23 No, Physician 10/12/23 documented as of this encounter
--- OUTSIDE RECORDS SUMMARY | 2024-08-10 03:32 | XMS_ITS | Encounter Summary ---
Author Organization [facility] Address [address] [place] [address] Phone Care Team Providers Care Vertical Boring Mill Operator Name Role Phone Mady Sullivan MD Primary Care Provider No, Physician Unavailable Amira Javed PARK GUARD Unavailable [phone] Encounter Details Date Type Department Care Team (Late st Contact Info) Description 07/03/2024 Ophth Exam [facility] Ophthalmology [address] [place] [address] 1[address] [place] [id number] Candida Grullon MD [address] [address] Social History Tobacco Use Types Packs/Day Years Used Date Smoking Tobacco: Former Cigarettes Passive Smoke Exposure: Current Smokeless Tobacco: Never [facility] Utilities Answer Date Recorded In the past 12 months has [facility] [employer] gas, oil, or water [employer] threatened to shut off services in your [...] declined 07/08/2024 How often do you attend jainism or uatsdin serv ices? Patient declined 07/08/2024 Do you belong to any clubs o r organizations such as jainism groups, unions, fraternal or athletic groups, or [...] 04/07/2024 [facility] - Occupational [...] place to sleep or slept in a prison (including now)? No 10/15/2023 Housing Stability Vital [...] any time in the past [address] [facility], were you homeless or living in a prison (including now)? Patient declined 07/08/2024 Personal Safety [...] on file Legal Sex Male 11:02 PM HEALTH INSURANCE AGENT Gender Identity Not on file Sexual Orientation Not on file Occupation Industry Job Start Date Job End Date unemployed Not on file Not on file Not on file documented as of this encounter Functional Status * Are you deaf or do you have serious difficulty hearing? Answer Date of Assessment Author No 02/24/2024 10:18 AM CDManda Ibrahim MSW * Are you blind or do you have serious difficulty seeing, even when wearing glasses? Answer Date of Assessment Author No 02/24/2024 10:18 AM Manda Mcintyre MSW * Do you have serious difficulty walking or climbing stairs? Answer Date of Assessment Author No 02/24/2024 10:18 AM Manda Mcintyre MSW * Do you have serious difficulty dressing or bathing? Answer Date of Assessment Author No 02/24/2024 10:18 AM Manda Mcintyre MSW * Because of a physical, mental, or [...] Manda Mcintyre MSW documented in this encounter Plan of Treatment [...] is undergoing Ring Surveillance for admission to [facility]. VICTOR MANUEL Ch [facility] 07/05/2024 07/05/2024 07/09/2024 10:55 AM HEALTH INSURANCE AGENT C. difficile suspected 07/07/2024 07/07/202407/09 3:05 AM HEALTH INSURANCE AGENT documented as of this encounter Eye Exam Visual Acuity (Snellen - Linear) Right eye Left eye Near cc at least 20/70-1 phni at least 2 0/200 phni Pt unreliable, smacking lips, constant jerky movements, difficulty with words, falling asleep, patient making chronic reptetive movements and sounds. Patient unwilling to attempt lower on chart Tonometry (Tonopen, 7:17 AM) Right eye Left eye Pressure 16 14 Pupils Dark Light Shape React APD Right eye 4 2 Round Brisk None Left eye 4 2 Round Brisk None Visual Castro Right eye Left eye Restrictions Total superior temporal, superio r nasal deficiencies Very unreliable CVF, repeated exam several times with very disparate results. At one point patient was saying they could not see the top half of my finger OD, no matter which quadrant of his vision Iwas testing. Extraocular Movement Appears grossly full . Patient participating poorly on exam Dilation Both eyes: 1.0% Mydriacyl, 2 .5% Phenylephrine @ 7:15 AM Color Right eye Left eye Ishihara Slit Lamp Exam Right eye Left eye Lids/Lashes Normal Normal Conjunctiva/Sclera White and quiet White and nolberto et Cornea Diffuse SPEE OD>OS Diffuse SPEE OD>OS Anterior Chamber Deep and quiet Deep and quiet Iris Round and reactive Round and nataly ctive Lens NS NS Slit lamp exam limited as patient unable to position correctly, he was constantly falling asleep and unable to maintain a fixed gaze. Fundus Exam Right eye Left eye Disc Normal Normal C/D Ratio 0.5 0.5 Macula Normal Normal Vessels Normal Normal Periphery Possible PVD inferotemporally, o therwise normal Normal Care Teams Vertical Boring Mill Operator Relationship Specialty Start Date End Date Mady Sullivan MD [address] [facility] [address] [place] [address] PCP - General Infectious Diseases 10/12/23 No, Physician 10/12/23 Amira Javed LCSW [address] [facility] ([facility] Mailstop [phone] [place] [address] SHOP Outpatient Head Of Research & Insights 07/09/24 07/09/24 documented as of this encounter
--- OUTSIDE RECORDS SUMMARY | 2024-08-10 03:32 | XMS_ITS | Encounter Summary ---
Author Organization [facility] Healthcare Address [address] [place] [address] Care Team Providers Care Clinical Research Manager Name Role Phone Mady Sullivan MD Primary Care Provider No, Physician Unavailable Nguyen Stephenson RN Unavailable [phone] Reason for Visit * Reason Comments Unsuccessful Phone Call 2 Encounter Details Date Type Department Care Team (Late st Contact Info) Description 06/10/2024 SHOP/CHAP Initial Outreach [facility] OP CASE MANAGEMENT [address] [place] [address] Nguyen Stephenson, RN [address] [facility] [address] [place] [address] Social History Tobacco Use Types Packs/Day Years Used Date Smoking Tobacco: Former Cigarettes Passive Smoke Exposure: Current Smokeless Tobacco: Never [facility] Utilities Answer Date Recorded In the past 12 months has [facility] [employer], oil, or water [employer] threatened to shut off services in your [...] answer 06/04/2024 How often do you attend [facility] or confucianism services? Patient unable to answer 06/04/2024 Do you belong to any clubs o r organizations such as roman catholic groups, unions, fraternal or athletic groups, or [...] Date Recorded PHQ-2 Total Score 4 04/07/2024 [facility] Occupat ional Health - [...] slept in a nursing home (including now)? No 10/15/2023 Housing Stability [...] any time in the past 12 m [facility], were you homeless or living in a nursing home (including now)? 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 Answer Date of Assessment Author No 02/24/2024 10:18 AM CDT Cynthia Hardingasandor DickensSherine, PROPERTY OFFICER * Are you blind or do you have serious difficulty seeing, even when wearing glasses? Answer Date of Assessment Author No 02/24/2024 10:18 AM CDJose Hardin Manda Sherine, PROPERTY OFFICER * Do you have serious difficulty walking or climbing stairs? Answer Date of Assessment Author No 02/24/2024 10:18 AM CDJose Hardin Manda Sherine, PROPERTY OFFICER * Do you have serious difficulty dressing or bathing? Answer Date of Assessment Author No 02/24/2024 10:18 AM CDJose Summersjuan jose Manda Sherine, PROPERTY OFFICER * Because of a physical, mental, or emotional condition, do you have serious difficulty doing errandsalone such as visiting the doctor? Answer Date of Assessment Author No 02/24/2024 10:18 AM CDManda Ibrahim PROPERTY OFFICER documented as of this encounter Mental Status * Because of a physical, mental, or emotional condition, do you have serious difficulty concentrating, remembering, or making decisions? (5 years old or older) Answer Entry Date Author No 02/24/2024 10:18 AM LAURO Hardin Manda Sherine, PROPERTY OFFICER documented in this encounter Plan of Treatment Not on file documented as of this encounter Visit Diagnoses Not on filedocumented in this encounter Care Teams Clinical Research Manager Relationship Specialty Start Date End Date Mady Sullivan MD [address] [facility] [address] [place] [address] PCP - General Infectious Diseases 10/12/23 No, Physician 10/12/23 Nguyen Stephenson, VICTOR MANUEL [address] [facility] [address] [place] [address] SHOP Outpatient Car Runner 06/09/24 06/11/24 documented as of this encounter
--- OUTSIDE RECORDS SUMMARY | 2024-08-10 03:32 | XMS_ITS | Referral Summary ---
Author Organization [facility] Address [address] [place] [address] Care Team Providers Care Lifestyle Consultant Name Role Phone Mady Sullivan MD Primary Care Provider No, Physician Unavailable Encounters Date Type Department Care Team Description 08/04/2024 6:45 AM [facility] - 08/04/2024 6:[address] [address] Nicko Gunter DO Suicidal ideation (Primary Dx); Depression, unspecified depression type; HIV infection, unspecified symptom status (HCC) Discharge Disposition: Discharge to psych hospital or psych unit 08/04/2024 1:16 AM [facility] - 08/04/2024 2:[address] [address] Avulsion of skin of toe, initial encounter (Primary Dx) Discharge Disposition: Discharge to home or self care 07/29/2024 [facility]phone [facility] [address] [place] [address] Outpatient Health 4th Floor [address] [place] [address] Marisol Subramanian 07/10/2024 Telephone [facility] [address] [place] [phone] Martha Koch [facility] 07/10/2024 SHOP/CHAP Initial Outreach [facility] OP CASE MANAGEMENT [address] [place] [address] Amira Javed LCSW 07/09/2024 SHOP/CHAP Initial Outreach [facility] OP CASE MANAGEMENT [address] [place] [address] Amira Javed, [employer] 07/09/2024 SHOP/CHAP Initial Eligibility Review [facility] OP CASE MANAGEMENT [address] [place] [address] Amira Javed, [employer]PER[employer] SCHO[employer] MANAGER 07/08/2024 4:52 PM [facility] - 07/08/2024 7:00 PM [facility] Emergency [facility] Emergency Department [address] [place] [phone] Dysuria (Primary Dx); Suicidal ideation; Homelessness Discharge Disposition: Discharge to home or self care 07/04/2024 8:14 AM [facility] - 07/08/2024 1:[address] [phone] Karen Barrientos MD Bakeer, MD Allie Ramirez, MD Benjamin Cormierwood, Cari Almodovar MD Abnormal involuntary movements (Primary Dx); Pyelonephritis Discharge Disposition: Discharge to home or self care 07/03/2024 Telephone [facility] Ophthalmology [address] [place] [phone] Candida Grullon MD 07/03/2024 Ophth Exam [facility] Ophthalmology [address] [place] [phone] Canddia Grullon MD 07/03/2024 5:01 AM [facility] - 07/03/2024 11:50 AM [facility] Emergency Department [address] [place] [phone] Rafa Billings MD Fitzmaurice, Sean C., MD Visual loss (Primary Dx); HIV infection, unspecified symptom status (HCC); Hx of transient ischemic attack (TIA) Discharge Disposition: Left Against Medical Advice 07/01/2024 10:44 AM [facility] - 07/01/2024 12:22 PM [facility] Emergency Department [address] [place] [phone] Discharge Disposition: Left without being seen 06/30/2024 [facility] CHW Eligibility Review [facility] Community Health Worker [address] [place] [address] Sandra Vann MT 06/27/2024 8:31 PM [facility] - 06/27/2024 8:58 PM [facility] Emergency [facility] Emergency Department [address] [place] [phone] Onur Johnson MD Right leg numbness (Primary Dx); Foot drop, right Discharge Disposition: Discharge to home or self care 06/26/2024 9:44 AM [facility] - 06/26/2024 12:21 PM [facility] Emergency [facility] Emergency Department [address] [place], [place] [phone] Chas Friedman MD Viral URI with cough (Primary Dx) Discharge Disposition: Discharge to home or self care 06/20/2024 Telephone [facility] [address] [place], [place] [phone] Tj Patel adriana 06/18/2024 11:54 PM [facility] - 06/19/2024 12:31 AM [facility] Emergency [facility] Emergency Department [address] [place], [place] [phone] Suicidal ideation (Primary Dx); Substance use disorder Discharge Disposition: Discharge to home or self care 06/13/2024 Telephone [facility] [address] [place], [place] [phone] Tj Patel RPh 06/12/2024 SHOP/CHAP Initial Outreach [facility] OP CASE MANAGEMENT [address] [place], [place] [phone] Nguyen Stephenson RN 06/10/2024 SHOP/CHAP Initial Outreach [facility] OP CASE MANAGEMENT [address] [place] [phone] Nguyen Stephenson RN 06/09/2024 SHOP/CHAP Initial Outreach [facility] OP CASE MANAGEMENT [address] [place] [phone] Nguyen Stephenson RN 06/09/2024 SHOP/CHAP Initial Eligibility Review [facility] OP CASE MANAGEMENT [address] [place] [phone] Nguyen Stephenson RN 06/08/2024 Telephone [facility] Ophthalmology [facility] 3rd Floor [address] [place] [phone] Ngozi Payne MD 06/02/2024 9:09 AM [facility] - 06/07/2024 1:03 PM [facility] Hospital Encounter [address] [phone] Calvin Sainz MD Blustein, MD Chucky Scruggs, MD Dru Sarmiento, MD Paul Tristan, Rahel Almodovar MD Intentional benzodiazepine overdose, initial encounter (HCC) (Primary Dx); Diarrhea, unspecified type; Respiratory acidosis; Nonadherence to medication; Low CD4 cell count determined by flow cytometry; Borderline personality disorder (CMS/HCC) (HCC) [F60.3]; HIV infection, unspecified symptom status (HCC) Discharge Disposition: Discharge to home or self care 06/05/2024 Ophth Exam [facility] Ophthalmology [address] [place] [address] 1st [place] [phone] Cuco Chavarria MD 05/10/2024 6:44 AM CDT - 05/10/2024 10:40 AM CDT Emergency [facility] Emergency Department [address] [place] [phone] Benny Newell MD Depression, unspecified depression type (Primary Dx); Borderline personality disorder (CMS/HCC) (HCC) Discharge Disposition: Discharge to home or self care from Last 3 Months Allergies No known active allergies Medications ARIPiprazole [...] is very much alive and lives in [facility] (pt reported [place]). Overall, his recurrent presentations are consistent with [...] good, denies SI/HI/AVH. Hopeful about placement at [facility] and motivated to remain sober. Plans on being compliant with medications. - Cymbalta 60mg daily, Abilify 5mg, doxepin 25mg qhs - assisted patient and he has was accepted at [facility] in [place] as of 01/29 @0900 - Zyprexa PO/IM backup prn for agitation Assessment & Plan (01/26/2024 11:47 AM CDT): Reason for admission to [facility]. HIV disease (CMS/HCC) 10/03/2023 Assessment & Plan [...] doses of IM penicillin per patient in 2017 when initially diagnosed. 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 P; -rec [...] Pt to follow with HIV provider at [facility] after discharge. Call/message if questions/concerns. Assessment & [...] has a bed at [facility] in [place] today at 9am. - motivational interviewing - d/c to [facility] [place] for IPR. Assessment & Plan (01/26/2024 11:48 [...] sober living facility and has intake at [facility] today. - Discharge to [facility] today Borderline personality disor adalid, [...] to discharge today. Will be discharging to [facility]. - Continue Zoloft 200 mg [...] (10/29/2020): Added automatically from request for surgery [id number] Condyloma 10/29/2020 Overview (10/29/2020): Added automatically from request for surgery [id number] Resolved Problems Problem Noted Date Diagnosed Date Resolved Date Borderline personality disorder ([facility]) 01/29/2024 02/25/2024 Assessment & Plan (01/29/2024 7:48 [...] (10/15/2023 1:09 PM CDT): Borderline personality disorder ([facility]/HCC) 10/12/2023 02/25/2024 Suicide attempt 10/03/2023 10/03/2023 Assessment & Plan (10/03/2023 12:02 PM CDT): Ingested multiple medications. Consulted Toxicology in the ED. Asymptomatic. Suicidal ideation 10/29/2022 10/30/2022 Suicide attempt 10/28/2022 10/30/2022 Immunizations Name Administration Dates Next Due DTaP 10/15/1998, 5,05/18/1994,02/23,1993 HPV9 06/27/2023,03/21/2023 Hep A, Pediatric 10/05/2005 Hep B Vaccine 10/24/2023,08/06/2019 Hep B, Unspecified 09/22/1998,04/10/1994, 994 Hib (PRP-T) 04/05/1995, 4,02/23/1994,11/28 IPV 02/05/2003 Influenza, Quadrivalent, Spl it, Preservative Free, Intramuscular 06/17/2023 MMR 10/15/1998,10/19/1994 Meningococcal MCV4P (Menactra) 10/05/2005 OPV 05/18/1994,02/23/1994,1993 Pneumococcal Conjugate PCV 13 08/06/2019 Pneumococcal Polysaccharide PPV23 08/06/2019 Polio, Unspecified 11/18/1996 Tdap 06/27/2023 Varicella 11/18/1996 Social History Tobacco Use Types Packs/Day Years Used Date Smoking Tobacco: Former Cigarettes Passive Smoke Exposure: Current Smokeless Tobacco: Never Tobacco Cessation:Counseling Given: No [facility] Utilities Answer Date Recorded In the past 12 months has e [employer], gas, oil, or water [employer] threatened to shut off services in your [...] declined 07/08/2024 How often do you attend evangelical or hoahaoism serv ices? Patient declined 07/08/2024 Do you belong to any clubs o r organizations such as evangelical groups, unions, fraternal or athletic groups, or [...] Date Recorded PHQ-2 Total Score 4 04/07/2024 [facility] - [...] any time in the past 12 m [facility], were you homeless or living [...] on file Legal Sex Male 11:02 PM [facility] Gender Identity Not on file Sexual Orientation Not on file Occupation Industry Job Start Date Job End Date unemployed Not on file Not on file Not on file Last Filed Vital Signs Vital Sign Reading Time Taken Comments Blood Pressure 132/89 08/04/2024 6:13 AM [facility] Pulse 91 08/04/2024 6:13 AM [facility] [employer] [facility] [employer] Temperature 36.4 ??C (97.6 ??F) 08/04/2024 6:13 AM CS T Respiratory Rate 18 08/04/2024 6:13 AM [facility] [employer] Oxygen Saturation 100% 08/04/2024 6:13 AM [facility] Inhaled Oxygen Concentration - - Weight 74.4 kg (164 lb) 08/04/2024 6:13 AM [facility] Height 182.9 cm (6') 08/04/2024 6:13 AM [facility] [employer] [facility] Body Mass Index 22.24 08/04/2024 6:13 AM [facility] Functional Status * Are you deaf or [...] Assessment Author No 02/24/2024 10:18 AM Manda Mcnityre MSW * Because of a physical, mental, or emotional condition, do you have serious difficulty doing errandsalone such as visiting the doctor? Answer Date of Assessment Author No 02/24/2024 10:18 AM Manda Mcintyre MSW Mental Status * Because of a physical, mental, or emotional condition, do you have serious difficulty concentrating, remembering, or making decisions? (5 years old or older) Answer Entry Date Author No 02/24/2024 10:18 AM Manda Mcintyre MSW Plan of Treatment Not on file Procedures Procedure Name Priority Date/Time Associated Diagnosis Comments DRUGS OF ABUSE SCREEN, URINE WITHOUT CONFIRMATION STAT 08/04/2024 9:17 AM [facility] URINALYSIS AND REFLEX TO MICROSCOPIC AND CULTURE STAT 08/04/2024 9:17 AM [facility] [employer] EGFR STAT 08/04/2024 7:45 AM [facility] [employer] DIFFERENTIAL AUTO STAT 08/04/2024 7:4 5 AM [facility] [employer] SALICYLATE LEVEL STAT 08/04/2024 7:45 AM [facility] [employer] ACETAMINOPHEN LEVEL STAT 08/04/2024 7 :45 AM [facility] [employer] ETHANOL STAT 08/04/2024 7:45 AM [facility] [employer] COMPREHENSIVE METABOLIC PANEL STAT 08/04/2024 7:45 AM [facility] CBC WITH AUTO DIFFERENTIAL STAT 08/04/2024 7:45 AM [facility] [employer] COVID-19 CORONAVIRUS RNA STAT 08/04/2024 7:45 AM [facility] [employer] ECG 12-LEAD Routine 08/04/2024 6:16 AM [facility] [employer] XR FOOT LEFT 3 OR MORE VIEWS ED 08/03/2024 11:17 PM [facility] [employer] URINALYSIS, MICROSCOPIC ONLY STAT 07/08/2024 5:14 PM [facility] [employer] URINALYSIS AND REFLEX TO MICROSCOPIC STAT 07/08/2024 5:14 PM [facility] [employer] DRUGS OF ABUSE SCREEN, URINE WITHOUT CONFIRMATION STAT 07/08/2024 5:14 PM [facility] EGFR STAT 07/08/2024 5:13 PM [facility] [employer] T4, FREE STAT 07/08/2024 5:13 PM [facility] [employer] [facility] DIFFERENTIAL AUTO STAT 07/08/2024 5:1 3 PM [facility] [employer] ETHANOL STAT 07/08/2024 5:13 PM [facility] [employer] THYROID FUNCTION CASCADE STAT 07/08/2024 5:13 PM [facility] [employer] COMPREHENSIVE METABOLIC PANEL STAT 07/08/2024 5:13 PM [facility] [employer] CBC WITH AUTO DIFFERENTIAL STAT 07/08/2024 5:13 PM [facility] [employer] [facility] EGFR Routine 07/07/2024 8:41 PM [facility] DIFFERENTIAL AUTO Routine 07/07/2024 8:4 1 PM [facility] [employer] MAGNESIUM Routine 07/07/2024 8:41 PM [facility] CBC WITH AUTO DIFFERENTIAL Routine 07/07/2024 8:41 PM [facility] [employer] BASIC METABOLIC PANEL Routine 07/07/2024 8:41 PM [facility] [employer] INFECTION PREVENTION DELROY AURIS PCR, SURVEILLANCE Routine 07/07/2024 4:44 AM [facility] [employer] EGFR Routine 07/07/2024 1:14 AM [facility] DIFFERENTIAL AUTO Routine 07/07/2024 1:1 4 AM [facility] MAGNESIUM Routine 07/07/2024 1:14 AM [facility] [employer] CBC WITH AUTO DIFFERENTIAL Routine 07/07/2024 1:14 AM [employer] BASIC METABOLIC PANEL Routine 07/07/2024 1:14 AM [facility] VANCOMYCIN LEVEL TROUGH Timed 07/07/2024 1:14 AM [facility] [employer] [facility] MRI ORBIT W WO CONTRAST IP Routine 07/06/2024 1:31 PM [employer] EGFR Routine 07/06/2024 6:54 AM [facility] [employer] DIFFERENTIAL AUTO Routine 07/06/2024 6:5 4 AM [facility] [employer] MAGNESIUM Routine 07/06/2024 6:54 AM [facility] CBC WITH AUTO DIFFERENTIAL Routine 07/06/2024 6:54 AM [employer] BASIC METABOLIC PANEL Routine 07/06/2024 6:54 AM [employer] BLOOD CULTURE Timed 07/05/2024 4:10 PM [facility] [employer] BLOOD CULTURE Timed 07/05/2024 4:10 PM [facility] ETHANOL Timed 07/05/2024 3:55 PM [facility] AMPHETAMINE, URINE, CONFIRMATION Routine 07/05/2024 12:29 PM [facility] [employer] DRUGS OF ABUSE SCREEN, URINE WITH REFLEX CONFIRMATION Routine 07/05/2024 12:29 PM [facility] POCT GLUCOSE DEVICE Routine 07/05/2024 12:19 PM [facility] [employer] HIV-1 GENOTYPIC DRUG RESISTANCE Routine 07/05/2024 6:55 AM [facility] N. GONORRHOEAE/C. TRACHOMATIS AMPLIFICATION Routine 07/05/2024 6:39 AM [facility] [employer] [facility] TRICHOMONAS VAGINALIS PCR Routine 07/05/2024 6:39 AM [facility] [employer] HEPATITIS PANEL, ACUTE Routine 6:10 AM [facility] [employer] HIV-1 RNA, QUANTITATIVE, PCR Routine 07/05/2024 6:10 AM [employer] POCT GLUCOSE DEVICE Routine 07/05/2024 5 :55 AM [employer] EGFR Routine 07/04/2024 9:39 PM [employer] DIFFERENTIAL AUTO Routine 07/04/2024 9:3 9 PM [employer] MAGNESIUM Routine 07/04/2024 9:39 PM [employer] CBC WITH AUTO DIFFERENTIAL Routine 07/04/2024 9:39 PM [employer] BASIC METABOLIC PANEL Routine 07/04/2024 9:39 PM [employer] US KIDNEY COMPLETE ED 07/04/2024 5: 13 PM [employer] BLOOD CULTURE STAT 07/04/2024 4:57 PM [employer] BLOOD CULTURE STAT 07/04/2024 4:57 PM [employer] MRI BRAIN INCL ORBITS W WO CONTRAST ED 07/04/2024 2:42 PM [facility] [employer] CT ABDOMEN PELVIS W CONTRAST ED 07/04/2024 12:25 PM [employer] SEPSIS LACTATE WITH REFLEX STAT 07/04/2024 11:28 AM [employer] BLOOD CULTURE STAT 07/04/2024 11:28 AM [employer] BLOOD CULTURE STAT 07/04/2024 11:28 AM [facility] [employer] POCUS RETROPERITONEAL (AAA OR RENAL) 07/04/2024 11:21 AM [employer] EGFR STAT 07/04/2024 10:07 AM [facility] [employer] URINALYSIS, MICROSCOPIC ONLY STAT 07/04/2024 10:07 AM [employer] DIFFERENTIAL AUTO STAT 07/04/2024 10:07 AM [facility] [employer] T-HELPER CELLS (CD4) COUNT STAT 07/04/2024 10:07 AM [facility] [employer] LIPASE STAT 07/04/2024 10:07 AM [facility] [employer] COMPREHENSIVE METABOLIC PANEL STAT 07/04/2024 10:07 AM [employer] CBC WITH AUTO DIFFERENTIAL STAT 07/04/2024 10:07 AM [employer] URINE CULTURE STAT 07/04/2024 10:07 AM [employer] URINALYSIS AND REFLEX TO MICROSCOPIC AND CULTURE STAT 07/04/2024 10:07 AM [employer] ECG 12-LEAD STAT 07/03/2024 8:45 AM [employer] TROPONIN I HIGH-SENSITIVITY 2-HOUR Timed 07/03/2024 7:25 AM [employer] RPR TITER STAT 07/03/2024 7:25 AM [employer] RPR STAT 07/03/2024 7:25 AM [employer] ED CRITICAL CARE Routine 07/03/2024 5:22 AM [employer] CTA/CTP RAPID STROKE Critical/Life-T hreatening 07/03/2024 5:20 AM [employer] POCT LACTATE - DEVICE Routine 07/03/2024 5:19 AM [employer] POCT PROTHROMBIN TIME, WHOLE BLOOD Routine 07/03/2024 5:17 AM [employer] POC BLOOD GAS AND CHEMISTRIES, ARTERIAL Routine 07/03/2024 5:14 AM [employer] POCT GLUCOSE DEVICE Routine 07/03/2024 5 :13 AM [employer] EGFR STAT 07/03/2024 5:09 AM [employer] DIFFERENTIAL AUTO STAT 07/03/2024 5:0 9 AM [employer] TROPONIN I HIGH-SENSITIVITY SERIES (BASELINE, 2HR, 4HR, 6HR) STAT 07/03/2024 5:09 AM [employer] APTT STAT 07/03/2024 5:09 AM [employer] COMPREHENSIVE METABOLIC PANEL STAT 07/03/2024 5:09 AM [employer] CBC WITH AUTO DIFFERENTIAL STAT 07/03/2024 5:09 AM [employer] ECG 12-LEAD STAT 06/26/2024 2:10 PM [employer] INFLUENZA A/B, RSV, AND COVID-19 PCR Routine 06/26/2024 9:53 AM [employer] EGFR STAT 06/26/2024 9:19 AM [employer] DIFFERENTIAL AUTO STAT 06/26/2024 9:1 9 AM [employer] TROPONIN I HIGH-SENSITIVITY SERIES (BASELINE, 2HR, 4HR, 6HR) STAT 06/26/2024 9:19 AM [employer] CBC WITH AUTO DIFFERENTIAL STAT 06/26/2024 9:19 AM [employer] COMPREHENSIVE METABOLIC PANEL STAT 06/26/2024 9:19 AM [employer] XR CHEST PA LATERAL 2 VIEWS ED 06/26/2024 9:10 AM [employer] CELL COUNT W REFLEX DIFFERENTIAL, CSF Routine 06/06/2024 11:53 AM [employer] CSF PROTEIN Routine 06/06/2024 11:53 AM [employer] GLUCOSE, CSF Routine 06/06/2024 11:53 AM [employer] CRYPTOCOCCAL ANTIGEN, CSF Routine 06/06/2024 11:53 AM [employer] VDRL, CSF Routine 06/06/2024 11:53 AM [employer] MYCOLOGY (FUNGAL) CULTURE AND CRYPTOCOCCUS ANTIGEN, CSF Routine 06/06/2024 11:53 AM [employer] ENTEROVIRUS PCR Routine 06/06/2024 11:53 AM [employer] HERPES SIMPLEX VIRUS (HSV) PCR Routine 06/06/2024 11:53 AM [facility] [employer] VARICELLA ZOSTER VIRUS (VZV) PCR Routine 06/06/2024 11:53 AM [employer] TN DIAGNOSTIC LUMBAR SPINAL PUNCTURE Routine 06/06/2024 11:46 AM [employer] HIV infection, unspecified symptom status (HCC) CT HEAD WO CONTRAST IP Routine 06/05/2024 5 :52 PM [employer] LACTATE Timed 06/04/2024 8:39 PM [employer] HEPATITIS C ANTIBODY Routine 06/04/2024 8:39 PM [employer] ERYTHROCYTE SEDIMENTATION RATE Routine 06/04/2024 8:36 PM [employer] CRP (ACUTE PHASE) Routine 06/04/2024 8:3 6 PM [employer] EGFR Routine 06/04/2024 8:36 PM [employer] DIFFERENTIAL AUTO Routine 06/04/2024 8:3 6 PM [employer] COMPREHENSIVE METABOLIC PANEL Routine 06/04/2024 8:36 PM [employer] CBC WITH AUTO DIFFERENTIAL Routine 06/04/2024 8:36 PM [employer] RPR TITER Timed 06/04/2024 8:36 PM [employer] BLOOD CULTURE Routine 06/04/2024 8:36 PM [employer] RPR Timed 06/04/2024 8:36 PM [employer] CRYPTOCOCCAL ANTIGEN, SERUM Routine 06/04/2024 8:36 PM [employer] HEPATITIS B SURFACE ANTIGEN Routine 06/04/2024 8:36 PM [employer] HEPATITIS B CORE ANTIBODY, TOTAL Routine 06/04/2024 8:36 PM [employer] CMV, IGG AND IGM ANTIBODIES Routine 06/04/2024 8:36 PM [employer] CYTOMEGALOVIRUS (CMV) DNA, QUANT GEN LAB Routine 06/04/2024 8:36 PM [employer] EGFR Timed 06/04/2024 6:10 AM [employer] DIFFERENTIAL AUTO Timed 06/04/2024 6:1 0 AM [employer] LACTATE Timed 06/04/2024 6:10 AM [employer] COMPREHENSIVE METABOLIC PANEL Timed 06/04/2024 6:10 AM [employer] CBC WITH AUTO DIFFERENTIAL Timed 06/04/2024 6:10 AM [employer] POCT GLUCOSE DEVICE Routine 06/03/2024 5 :26 AM [employer] POCT KETONE, BLOOD Routine 06/02/2024 7: 46 PM [employer] STOOL CULTURE Routine 06/02/2024 7:17 PM [employer] LIPID PANEL STAT 06/02/2024 5:22 PM [employer] EGFR STAT 06/02/2024 5:22 PM [employer] OSMOLALITY, BLOOD STAT 06/02/2024 5:2 2 PM [employer] LACTATE Routine 06/02/2024 5:22 PM [employer] BASIC METABOLIC PANEL STAT 06/02/2024 5:22 PM [employer] BLOOD GAS, VENOUS STAT 06/02/2024 3:4 4 PM [employer] POCT GLUCOSE DEVICE Routine 06/02/2024 3 :25 PM [employer] ECG 12-LEAD Routine 06/02/2024 3:03 PM [employer] POCT GLUCOSE DEVICE Routine 06/02/2024 2 :26 PM [employer] POCT GLUCOSE DEVICE Routine 06/02/2024 1 :50 PM [employer] POCT GLUCOSE DEVICE Routine 06/02/2024 1 :13 PM [employer] LACTATE Routine 06/02/2024 12:29 PM [employer] BLOOD GAS, VENOUS Routine 06/02/2024 12:29 PM [employer] TROPONIN I HIGH-SENSITIVITY 2-HOUR Timed 06/02/2024 11:13 AM [employer] URINALYSIS, MICROSCOPIC ONLY STAT 06/02/2024 10:28 AM [employer] DRUGS OF ABUSE SCREEN, URINE WITHOUT CONFIRMATION STAT 06/02/2024 10:28 AM [employer] URINALYSIS AND REFLEX TO MICROSCOPIC AND CULTURE STAT 06/02/2024 10:28 AM [employer] XR CHEST 1 VIEW ED 06/02/2024 10:22 AM [employer] ECG 12-LEAD STAT 06/02/2024 9:37 AM [employer] T-HELPER CELLS (CD4) COUNT STAT 06/02/2024 9:35 AM [employer] CREATINE KINASE (CK), TOTAL STAT 06/02/2024 9:35 AM [facility] [employer] MANUAL DIFFERENTIAL STAT 06/02/2024 9 :35 AM [employer] EGFR STAT 06/02/2024 9:35 AM [employer] SEPSIS LACTATE WITH REFLEX STAT 06/02/2024 9:35 AM [employer] THYROID FUNCTION CASCADE STAT 06/02/2024 9:35 AM [employer] TROPONIN I HIGH-SENSITIVITY SERIES (BASELINE, 2HR, 4HR, 6HR) STAT 06/02/2024 9:35 AM [employer] SALICYLATE LEVEL STAT 06/02/2024 9:35 AM [employer] APTT STAT 06/02/2024 9:35 AM [employer] PROTIME-INR STAT 06/02/2024 9:35 AM [employer] ETHANOL STAT 06/02/2024 9:35 AM [employer] HEPATIC FUNCTION PANEL STAT 9:35 AM [facility] [employer] ACETAMINOPHEN LEVEL STAT 06/02/2024 9 :35 AM [employer] BLOOD GAS, VENOUS STAT 06/02/2024 9:3 5 AM [employer] CBC WITH AUTO DIFFERENTIAL STAT 06/02/2024 9:35 AM [employer] BASIC METABOLIC PANEL STAT 06/02/2024 9:35 AM [employer] TN CRITICAL CARE ILL/INJURED PATIENT INIT 30-74 MIN Routine 06/02/2024 9:28 AM [employer] POCT GLUCOSE DEVICE Routine 05/10/2024 10:12 AM [...] CDT HEMOGLOBIN A1C STAT 08/01/2017 9:13 PM [employer] from Last 3 Months or Most Recently Relevant to Health Maintenance Results * Urinalysis reflex to microscopic and culture Urine (08/04/2024 9:17 AM [employer]) Color, ur Yellow Yellow Clarity, ur Clear [...] tendency for uric acid stone formation. Source: [facility] Current Interpretive Data was last revised on 2017 Protein, ur ql Negative Negative [facility] Glucose, ur ql Negative Negative [facility] Ketones, ur Negative Negative [facility] Bilirubin, ur Negative Negative [facility] Blood, ur Negative Negative [facility] Urobilinogen, ur <2.0 <2.0 mg/dL [facility] Nitrite, ur Negative Negative [facility] Leukocyte esterase, ur Negative Negative [facility] UA reflex comment Reflex conditions for microscopic UA and culture not met. [facility] Urine 08/04/2024 9:17 AM [employer] 08/04/2024 9:20 AM [employer] Nicko Gunter DO LAB MICROBIOLOGY - GENERAL ORD ERABLES Final Result JOE [address] [facility] [place] [address] * (ABNORMAL) Drugs of Abuse Screen, Urine without Confirmation (08/04/2024 9:17 AM [employer]) Amphetamine, ur Screen Positive, presumptive (A) CutOff 500ng/mL Comment: Interpretive Data - Amphetamines: ??Samples containing greater than 500 ng/mL d-methamphetamine ??or other cross-reacting amphetamine compounds are reported as positive. ??Amphetamine immunoassays are subject to significant false positive rates due to cross-reactivity of non-amphetamine drugs. Confirmatory testing required for definitive results. Current Interpretive Data was last reviewed 2023. Barbiturates, ur Not Detected CutOff 200ng/mL [facility] Comment: Interpretive Data - Barbiturates: ??Samples containing greater than 200 ng/mL secobarbital or other cross-reacting barbiturate compounds are reported as positive. ??False positive and false negative results are possible. Confirmatory testing required for definitive results. Current Interpretive Data was last reviewed 2023. Benzodiazepines, ur Not Detected CutOff 100ng/mL [facility] Comment: Interpretive Data - Benzodiazepines: ??Samples containing greater than 100 ng/mL nordiazepam or other cross-reacting compounds are reported as positive. False positive and false negative results are possible. Confirmatory testing required for definitive results. Current Interpretive Data was last reviewed 2023. Cannabinoids, ur Not Detected CutOff 50 ng/mL [facility] Comment: Interpretive Data - Cannabinoids: ??Samples containing greater than 50 ng/mL delta-9 THC -COOH or other cross-reacting compounds are reported as positive. ??False positive and false negative results are possible. ??Confirmatory testing required for definitive results. Current Interpretive Data was last reviewed 2023. Cocaine, ur Not Detected CutOff 150ng/mL [facility] Comment: Interpretive Data - Cocaine: ??Samples containing greater than 150 ng/mL benzoylecgonine or other cross-reacting compounds are reported as positive. False positive and false negative results are possible. Confirmatory testing required for definitive results. Current Interpretive Data was last reviewed 2023. Fentanyl, Ur Not Detected CutOff 5 ng/mL [facility] Comment: Interpretive Data - Fentanyl: ?? Samples containing greater than 5 ng/mL norfentanyl, fentanyl, or other cross-reacting fentanyl compounds are reported as positive. False positive and false negative results are possible. Confirmatory testing required for definitive results. Current Interpretive Data was last reviewed 2023. Methadone, ur Not Detected CutOff 300ng/mL [facility] Comment: Interpretive Data - Methadone: ??Samples containing greater than 300 ng/mL d,l-methadone or other cross-reacting compounds are reported as positive. ??False positive and false negative results are possible. Confirmatory testing required for definitive results. Current Interpretive Data was last reviewed 2023. Opiates, ur Not Detected CutOff 300ng/mL [facility] Comment: Interpretive Data - Opiates: ??Samples containing greater than 300 ng/mL morphine or other cross-reacting compounds are reported as positive. ??False positive and false negative results are possible. Confirmatory testing required for definitive results. Current Interpretive Data was last reviewed 2023. Oxycodone, ur Not Detected CutOff 100ng/mL [facility] Comment: Interpretive Data - Oxycodone: ??Samples containing greater than 100 ng/mL oxycodone or other cross-reacting compounds are reported as ??positive. ??False positive and false negative results are possible. Confirmatory testing required for definitive results. Current Interpretive Data was last reviewed 2023. Phencyclidine, ur Not Detected CutOff 25 ng/mL [facility]E Comment: Interpretive Data - Phencyclidine: ??Samples containing greater than 25 ng/mL phencyclidine or other cross-reacting compounds are reported as positive. ??False positive and false negative results are possible. Confirmatory testing required for definitive results. Current Interpretive Data was last reviewed 2023. Urine Creatinine 227 mg/dL [facility]E Comment: Interpretive Data Urine Creatinine: < 10 mg/dL is extremely dilute = or > 10 but < 20 mg/dL is dilute = or > 20 mg/dL is normal Current Interpretive Data was last revised on 2017. Urine 08/04/2024 9:17 AM [employer] 08/04/2024 9:20 AM [employer] Narrative JOE - 08/04/2024 10:00 AM [employer] Drug of Abuse screening is performed by immunoassay for medical purposes only. ??This is not to be used for Pain Management purposes. Nicko Gunter DO LAB URINE ORDERABLES Final Res ult [facility] [address] [facility] [place] [address] * COVID-19 Coronavirus RNA Nasopharyngeal (08/04/2024 7:45 AM [employer]) COVID-19 RNA Negative Negative Nasopharyngeal 08/04/2024 7: 45 AM [employer] 08/04/2024 7:48 AM [employer] Narrative JOE - 08/04/2024 8:34 AM [employer] Is the patient experiencing any symptoms consistent with COVID (eg. Fever, cough, shortness of breath)?->No What is the reason for testing?->Screening prior to Behavioral health admission ??Interpretive data Testing performed by [facility]. This test is performed using the [employer] Xpert Xpress CoV-2 plus assay. This is a real-time RT-PCR test intended for the qualitative detection of nucleic acid from the SARS-CoV-2. This assay has been cleared by the [place] Food and Drug administration. The performance characteristics have been verified by the [facility]. ??Results must be considered in the clinical context, and a negative result does not rule out infection. Interpretive data last revised 2024. ??Interpretive data Testing performed by [facility]. This test is performed using the [employer] Xpert Xpress CoV-2 plus assay. This is a real-time RT-PCR test intended for the qualitative detection of nucleic acid from the SARS-CoV-2. This assay has been cleared by the [place] Food and Drug administration. The performance characteristics have been verified by the [facility]. ??Results must be considered in the clinical context, and a negative result does not rule out infection. Interpretive data last revised 2024. us Nicko Gunter DO LAB MICROBIOLOGY - GENERAL ORD ERABLES Final Result JOE [address] [facility] [place] [address] * eGFR (08/04/2024 7:45 AM [employer]) eGFR >90 >=60 mL/min/1. 73 m2 Comment: [...] last reviewed 2021. Blood 08/04/2024 7:45 AM [employer] 08/04/2024 7:48 AM [employer] us Nicko Jani DO LAB BLOOD ORDERABLES Final Res ult [facility] [address] [facility] [place] [address] * Differential, auto (08/04/2024 7:45 AM [employer]) Pathologist [facility] Neutrophil abs 1.8 1.5 - 6.5 K/cumm Imm gran abs 0.0 0.0 - 0.1 K/cumm [facility] Lymphocyte abs 2.2 0.8 - 3.3 K/cumm [facility] Monocyte abs 0.5 0.2 - 0.8 K/cumm [facility] Eosinophil abs 0.1 0.0 - 0.5 K/cumm [facility] Basophil abs 0.0 0.0 - 0.1 K/cumm [facility] Neutrophil pct 38.3 % [facility] Comment: Interpretive Data Percent cell count reference ranges are not reported, since discordance with absolute values may lead to misinterpretation of CBC data. Current Interpretive Data was last revised on 2017. Imm gran pct 0.4 % [facility] Comment: Interpretive Data Percent cell count reference ranges are not reported, since discordance with absolute values may lead to misinterpretation of CBC data. Current Interpretive Data was last revised on 2017. Lymphocyte pct 48.0 % [facility] Comment: Interpretive Data Percent cell count reference ranges are not reported, since discordance with absolute values may lead to misinterpretation of CBC data. Current Interpretive Data was last revised on 2017. Monocyte pct 10.3 % [facility] Comment: Interpretive Data Percent cell count reference ranges are not reported, since discordance with absolute values may lead to misinterpretation of CBC data. Current Interpretive Data was last revised on 2017. Eosinophil pct 2.4 % [facility] Comment: Interpretive Data Percent cell count reference ranges are not reported, since discordance with absolute values may lead to misinterpretation of CBC data. Current Interpretive Data was last revised on 2017. Basophil pct 0.6 % [facility] Comment: Interpretive Data Percent cell count reference ranges are not reported, since discordance with absolute values may lead to misinterpretation of CBC data. Current Interpretive Data was last revised on 2017. Blood 08/04/2024 7:45 AM [employer] 08/04/2024 7:48 AM [employer] Nicko Gunter DO LAB BLOOD ORDERABLES Final Res ult Performing Organization Address [facility] Co de Phone Number [place] [phone] [facility] Department [place] [address] * (ABNORMAL) CBC with auto differential (08/04/2024 7:45 AM [employer]) WBC 4.7 3.8 - 9.9 K/cumm Hgb 12.5(L) 13.0 - 17.5 g/dL [facility] Hct 41.0 38.9 - 50.3 % [facility] Plt 252 150 - 400 K/cumm [facility] MPV 9.4 9.1 - 12.3 fL [facility] RBC 5.11 4.30 - 5.80 M/cumm [facility] MCV 80.2(L) 81.3 - 96.4 fL [facility] MCH 24.5(L) 27.1 - 33.3 pg [facility] MCHC 30.5(L) 32.3 - 35.7 g/dL [facility] RDW CV 21.0(H) 11.1 - 14.9 % [facility] RDW SD 59.4(H) 35.7 - 48.1 fL [facility] NRBC abs 0.00 0.00 - 0.01 K/cumm [facility] Blood 08/04/2024 7:45 AM [employer] 08/04/2024 7:48 AM [employer] Nicko Gunter DO LAB BLOOD ORDERABLES Final Res ult Performing Organization Address City/[facility] Co de Phone Number JOE [address] [address] * Ethanol (08/04/2024 7:45 AM [employer]) Ethanol <10 <=10 mg/dL Comment: Interpretive Data Legal limit of intoxication > or = 80 mg/dL Levels > or = 400 mg/dL are potentially TOXIC. Current interpretive data was last revised on 2018. Blood 08/04/2024 7:45 AM [employer] 08/04/2024 7:48 AM [employer] Nicko Gunter [employer] LAB BLOOD ORDERABLES Final Res ult Performing Organization Address [facility] de Phone Number JOE [address] [address] * Acetaminophen level (08/04/2024 7:45 AM [employer]) Acetaminophen <5 <=5 mcg/mL Comment: Interpretive Data Significant hepatic injury may occur and treatment with n-acetyl cysteine is generally recommended if the acetaminophen level exceeds: 150 mcg/mL at 4 hours after ingestion ??75 mcg/mL at 8 hours after ingestion ??38 mcg/mL at 12 hours after ingestion ??19 mcg/mL at 16 hours after ingestion Consult toxicology or poison control ([phone]) for unknown ingestion time. Current interpretive data was last revised 2023. Blood 08/04/2024 7:45 AM [employer] 08/04/2024 7:48 AM [employer] Nicko Gunter DO LAB BLOOD ORDERABLES Final Res ult Performing Organization Address [facility] Co de Phone Number JOE [address] [address] * Salicylate level (08/04/2024 7:45 AM [employer]) Salicylate <1.0 <=1.0 mg/dL Comment: Interpretive Data Toxic: 30 mg/dL or greater. Current interpretive data was last revised 2023. Blood 08/04/2024 7:45 AM [employer] 08/04/2024 7:48 AM [employer] us Nicko Gunter DO LAB BLOOD ORDERABLES Final Res ult [facility] [address] [facility] [place] [address] * (ABNORMAL) Comprehensive metabolic panel (08/04/2024 7:45 AM [employer]) Pathologist [facility] Sodium 138 135 - 145 mmol/L Potassium, pl 4.2 3.3 - 4.9 mmol/L [facility] Chloride 102 97 - 110 mmol/L [facility] CO2 27 22 - 32 mmol/L [facility] Anion gap 9 2 - 15 mmol/L [facility] BUN 14 6 - 25 mg/dL [facility] Creatinine 1.01 0.80 - 1.30 mg/dL [facility] Glucose 93 70 - 199 mg/dL [facility] Comment: Interpretive Data Fasting glucose >/= [...] 2022. Calcium 9.7 8.5 - 10.3 mg/dL [facility] Bilirubin, total 0.5 0.1 - 1.2 mg/dL [facility] Protein, pl 9.0(H) 6.5 - 8.5 g/dL [facility] Albumin 4.4 3.5 - 5.0 g/dL [facility] Alk phos 88 40 - 130 Units/L [facility] ALT 45 7 - 55 Units/L [facility] AST 72(H) 10 - 50 Units/L [facility] Blood 08/04/2024 7:45 AM [employer] 08/04/2024 7:48 AM [employer] Nicko Gunter DO LAB BLOOD ORDERABLES Final Res ult Performing Organization Address [facility] Co de Phone Number JOE [address] [facility] [place] [address] * ECG 12 lead (08/04/2024 6:16 AM [employer]) Pathologist [facility] Ventricular Rate EKG/Min 68 BPM [facility] Atrial Rate 68 BPM [facility] TN-Interval (MSEC) 148 ms [facility] QRS-Interval (MSEC) 88 ms [facility] QT-Interval (MSEC) 410 ms [facility] QTc 435 ms [facility] P [place] 44 degrees [facility] R [place] 61 degrees [facility] T [place] 53 degrees [facility] Diagnosis Normal sinus rhythm Early repolarization Normal ECG No previous ECGs available Confirmed by HARVEY KNUTSON M.D. ([id number]) on 08/04/2024 9:13:08 PM [facility] 08/04/2024 6:16 AM [employer] 08/04/2024 9:13 PM [employer] Nicko Gunter DO ECG ORDERABLES Final Result Performing Organization Address [facility] de Phone Number [facility] * XR Foot Left 3 or More Views (08/03/2024 11:17 PM [employer]) Anatomical Region Laterality Modality Lower Extremities, Foot Left Computed Radiography 08/03/2024 11:2 8 PM [employer] Narrative 08/03/2024 11:30 PM [employer] EXAM DESCRIPTION: XR FOOT LEFT 3 OR [...] D: ??08/03/2024 11:30 PM T: Report ID: [id number] Reading Location: ??[id number] Procedure Note Beverly Saleh MD - 08/03/2024 [...] Beverly Saleh M.D. SN T: Report ID: [id number] Reading Location: [id number] Con Molina Jr., MD IM XR PROCEDURES Final Result * (ABNORMAL) Urinalysis reflex to microscopic (07/08/2024 5:14 PM [employer]) Color, ur Straw Yellow Clarity, ur Clear Clear [facility] Specific gravity, ur 1.017 1.003 - 1.030 [facility] pH, urine 7.0 [facility] Comment: Interpretive Data ? Urine pH is affected by diet, medications, systemic acid-base disturbances, and renal tubular function. ??pH may affect urinary stone formation. ??For example, urine pH below 6.0 may help reduce the tendency for calcium phosphate stones and pH greater than 6.0 may reduce the tendency for uric acid stone formation. Source: [facility] Current Interpretive Data was last revised on 2017 Protein, ur ql Trace Negative [facility] Glucose, ur ql Negative Negative [facility] Ketones, ur Negative Negative [facility] Bilirubin, ur Negative Negative [facility] Blood, ur Negative Negative [facility] Urobilinogen, ur <2.0 <2.0 mg/dL [facility] Nitrite, ur Negative Negative [facility] Leukocyte esterase, ur Trace(A) Negative [facility] UA reflex comment Reflex to microscopic UA will be performed. [facility] Urine 07/08/2024 5:14 PM [employer] 07/08/2024 5:20 PM [employer] us Pardeep Montano MD LAB URINE ORDERABLES Fi nal Result [facility] Department [place] [address] * Drugs of Abuse Screen, Urine without Confirmation (07/08/2024 5:14 PM [employer]) Pathologist [facility] Amphetamine, ur Not Detected CutOff 500ng/mL Comment: Interpretive Data - Amphetamines: ??Samples containing greater than 500 ng/mL d-methamphetamine ??or other cross-reacting amphetamine compounds are reported as positive. ??Amphetamine immunoassays are subject to significant false positive rates due to cross-reactivity of non-amphetamine drugs. Confirmatory testing required for definitive results. Current Interpretive Data was last reviewed 2023. Barbiturates, ur Not Detected CutOff 200ng/mL [facility] Comment: Interpretive Data - Barbiturates: ??Samples containing greater than 200 ng/mL secobarbital or other cross-reacting barbiturate compounds are reported as positive. ??False positive and false negative results are possible. Confirmatory testing required for definitive results. Current Interpretive Data was last reviewed 2023. Benzodiazepines, ur Not Detected CutOff 100ng/mL [facility] Comment: Interpretive Data - Benzodiazepines: ??Samples containing greater than 100 ng/mL nordiazepam or other cross-reacting compounds are reported as positive. False positive and false negative results are possible. Confirmatory testing required for definitive results. Current Interpretive Data was last reviewed 2023. Cannabinoids, ur Not Detected CutOff 50 ng/mL [facility] Comment: Interpretive Data - Cannabinoids: ??Samples containing greater than 50 ng/mL delta-9 THC -COOH or other cross-reacting compounds are reported as positive. ??False positive and false negative results are possible. ??Confirmatory testing required for definitive results. Current Interpretive Data was last reviewed 2023. Cocaine, ur Not Detected CutOff 150ng/mL [facility] Comment: Interpretive Data - Cocaine: ??Samples containing greater than 150 ng/mL benzoylecgonine or other cross-reacting compounds are reported as positive. False positive and false negative results are possible. Confirmatory testing required for definitive results. Current Interpretive Data was last reviewed 2023. Fentanyl, Ur Not Detected CutOff 5 ng/mL [facility] Comment: Interpretive Data - Fentanyl: ?? Samples containing greater than 5 ng/mL norfentanyl, fentanyl, or other cross-reacting fentanyl compounds are reported as positive. False positive and false negative results are possible. Confirmatory testing required for definitive results. Current Interpretive Data was last reviewed 2023. Methadone, ur Not Detected CutOff 300ng/mL [facility] Comment: Interpretive Data - Methadone: ??Samples containing greater than 300 ng/mL d,l-methadone or other cross-reacting compounds are reported as positive. ??False positive and false negative results are possible. Confirmatory testing required for definitive results. Current Interpretive Data was last reviewed 2023. Opiates, ur Not Detected CutOff 300ng/mL [facility] Comment: Interpretive Data - Opiates: ??Samples containing greater than 300 ng/mL morphine or other cross-reacting compounds are reported as positive. ??False positive and false negative results are possible. Confirmatory testing required for definitive results. Current Interpretive Data was last reviewed 2023. Oxycodone, ur Not Detected CutOff 100ng/mL [facility] Comment: Interpretive Data - Oxycodone: ??Samples containing greater than 100 ng/mL oxycodone or other cross-reacting compounds are reported as ??positive. ??False positive and false negative results are possible. Confirmatory testing required for definitive results. Current Interpretive Data was last reviewed 2023. Phencyclidine, ur Not Detected CutOff 25 ng/mL [facility] Comment: Interpretive Data - Phencyclidine: ??Samples containing greater than 25 ng/mL phencyclidine or other cross-reacting compounds are reported as positive. ??False positive and false negative results are possible. Confirmatory testing required for definitive results. Current Interpretive Data was last reviewed 2023. Urine Creatinine 115 mg/dL [facility] Comment: Interpretive Data Urine Creatinine: < 10 mg/dL is extremely dilute = or > 10 but < 20 mg/dL is dilute = or > 20 mg/dL is normal Current Interpretive Data was last revised on 2017. Urine 07/08/2024 5:14 PM [employer] 07/08/2024 5:20 PM [employer] Narrative [facility] - 07/08/2024 6:27 PM [employer] Drug of Abuse screening is performed by immunoassay for medical purposes only. ??This is not to be used for Pain Management purposes. Pardeep Montano MD LAB URINE ORDERABLES Fi nal Result [facility] Department [place] [address] * (ABNORMAL) Urinalysis, microscopic only (07/08/2024 5:14 PM [employer]) WBC, ur 11-20(A) 0 - 5 /HPF RBC, ur 0-2 0 - 2 /HPF [facility] Mucous, ur Present(A) [facility] Urine 07/08/2024 5:14 PM [employer] 07/08/2024 5:20 PM [employer] Pardeep Montano MD LAB URINE ORDERABLES Fi nal Result Performing Organization Address [facility] Co de Phone Number JOE [place] [facility] [place] [place] [address] * eGFR (07/08/2024 5:13 PM [employer]) eGFR >90 >=60 mL/min/1. 73 m2 Comment: [...] last reviewed 2021. Blood 07/08/2024 5:13 PM [employer] 07/08/2024 5:20 PM [employer] us Pardeep Montano MD LAB BLOOD ORDERABLES Fi nal Result Performing Organization Address City/[facility]/ZIP Co de Phone Number JOE [place]WARD [facility] Department [place] [address] * Differential, auto (07/08/2024 5:13 PM [employer]) Neutrophil abs 2.6 1.5 - 6.5 K/cumm Imm gran abs 0.0 0.0 - 0.1 K/cumm [facility] [facility] Lymphocyte abs 1.5 0.8 - 3.3 K/cumm [facility] Monocyte abs 0.2 0.2 - 0.8 K/cumm [facility] Eosinophil abs 0.1 0.0 - 0.5 K/cumm [facility] Basophil abs 0.0 0.0 - 0.1 K/cumm [facility] Neutrophil pct 58.0 % [facility] Comment: Interpretive Data Percent cell count reference ranges are not reported, since discordance with absolute values may lead to misinterpretation of CBC data. Current Interpretive Data was last revised on 2017. Imm gran pct 0.7 % [facility] Comment: Interpretive Data Percent cell count reference ranges are not reported, since discordance with absolute values may lead to misinterpretation of CBC data. Current Interpretive Data was last revised on 2017. Lymphocyte pct 33.3 % [facility] Comment: Interpretive Data Percent cell count reference ranges are not reported, since discordance with absolute values may lead to misinterpretation of CBC data. Current Interpretive Data was last revised on 2017. Monocyte pct 5.0 % [facility] Comment: Interpretive Data Percent cell count reference ranges are not reported, since discordance with absolute values may lead to misinterpretation of CBC data. Current Interpretive Data was last revised on 2017. Eosinophil pct 2.6 % [facility] Comment: Interpretive Data Percent cell count reference ranges are not reported, since discordance with absolute values may lead to misinterpretation of CBC data. Current Interpretive Data was last revised on 2017. Basophil pct 0.4 % [facility] Comment: Interpretive Data Percent cell count reference ranges are not reported, since discordance with absolute values may lead to misinterpretation of CBC data. Current Interpretive Data was last revised on 2017. Blood 07/08/2024 5:13 PM [employer] 07/08/2024 5:20 PM [employer] us Pardeep Montano MD LAB BLOOD ORDERABLES Fi nal Result [facility] Department [place] [address] * (ABNORMAL) Thyroid Function Phillips (07/08/2024 5:13 PM [employer]) [facility] TSH 4.49(H) 0.30 - 4.20 mcIUnit/mL Blood 07/08/2024 5:13 PM [employer] 07/08/2024 5:20 PM [employer] Pardeep Montano MD LAB BLOOD ORDERABLES Fi nal Result Performing Organization Address [facility] Co de Phone Number [facility] [place] [address] * (ABNORMAL) CBC with auto differential (07/08/2024 5:13 PM [employer]) [facility] WBC 4.6 3.8 - 9.9 K/cumm Hgb 12.7(L) 13.0 - 17.5 g/dL [facility] Hct 41.6 38.9 - 50.3 % [facility] Plt 663(H) 150 - 400 K/cumm [facility] MPV 9.0(L) 9.1 - 12.3 fL [facility] RBC 5.27 4.30 - 5.80 M/cumm [facility] MCV 78.9(L) 81.3 - 96.4 fL [facility] MCH 24.1(L) 27.1 - 33.3 pg [facility] MCHC 30.5(L) 32.3 - 35.7 g/dL [facility] RDW CV 17.4(H) 11.1 - 14.9 % [facility] RDW SD 50.0(H) 35.7 - 48.1 fL [facility] NRBC abs 0.00 0.00 - 0.01 K/cumm [facility] Blood (Blood, Venous) 07/08/2024 5:13 PM [employer] 07/08/2024 5:20 PM [employer] Pardeep Montano MD LAB BLOOD ORDERABLES Fi nal Result Performing Organization Address [facility] de Phone Number [facility] [place] [address] * (ABNORMAL) T4, free (07/08/2024 5:13 PM [employer]) Pathologist [facility] Free T4 0.87(L) 0.90 - 1.70 ng/dL Blood 07/08/2024 5:13 PM [employer] 07/08/2024 5:20 PM [employer] Narrative [facility] - 07/08/2024 6:31 PM [employer] This test was reflexed from a TSH result. Pardeep Montano MD LAB BLOOD ORDERABLES Ed ited Result - Final Performing Organization Address [facility] de Phone Number [facility] [place] [address] * Ethanol (07/08/2024 5:13 PM [employer]) Pathologist [facility] Ethanol <10 <=10 mg/dL Comment: Interpretive Data Legal limit of intoxication > or = 80 mg/dL Levels > or = 400 mg/dL are potentially TOXIC. Current interpretive data was last revised on 2018. Blood 07/08/2024 5:13 PM [employer] 07/08/2024 5:20 PM [employer] Pardeep Montano MD LAB BLOOD ORDERABLES Fi nal Result Performing Organization Address [facility] de Phone Number [facility] [place] [address] * (ABNORMAL) Comprehensive metabolic panel (07/08/2024 5:13 PM [employer]) Pathologist [facility] Sodium 142 135 - 145 mmol/L Potassium, pl 4.5 3.3 - 4.9 mmol/L [facility] Chloride 106 97 - 110 mmol/L [facility] CO2 29 22 - 32 mmol/L [facility] Anion gap 7 2 - 15 mmol/L [facility] BUN 15 6 - 25 mg/dL [facility] Creatinine 1.06 0.80 - 1.30 mg/dL [facility] Glucose 90 70 - 199 mg/dL [facility] Comment: Interpretive Data Fasting glucose [...] 2022. Calcium 9.3 8.5 - 10.3 mg/dL [facility] Bilirubin, total <0.2 0.1 - 1.2 mg/dL [facility] Protein, pl 8.2 6.5 - 8.5 g/dL [facility] Albumin 3.5 3.5 - 5.0 g/dL [facility] Alk phos 89 40 - 130 Units/L [facility] ALT 82(H) 7 - 55 Units/L [facility] AST 73(H) 10 - 50 Units/L [facility] Blood 07/08/2024 5:13 PM [employer] 07/08/2024 5:20 PM [employer] us Pardeep Montano MD LAB BLOOD ORDERABLES Fi nal Result [facility] [place] [address] * eGFR (07/07/2024 8:41 PM [employer]) eGFR >90 >=60 mL/min/1. 73 m2 Comment: [...] last reviewed 2021. Blood 07/07/2024 8:41 PM [employer] 07/07/2024 8:53 PM [employer] us Federico Kelley MD LAB BLOOD ORDERABLES Antonina jhaveri Result [facility] Department [place] [address] * Differential, auto (07/07/2024 8:41 PM [employer]) Neutrophil abs 2.6 1.5 - 6.5 K/cumm Imm gran abs 0.0 0.0 - 0.1 K/cumm [facility] Lymphocyte abs 1.5 0.8 - 3.3 K/cumm [facility] Monocyte abs 0.4 0.2 - 0.8 K/cumm [facility] Eosinophil abs 0.3 0.0 - 0.5 K/cumm [facility] Basophil abs 0.0 0.0 - 0.1 K/cumm [facility] Neutrophil pct 54.3 % [facility] Comment: Interpretive Data Percent cell count reference ranges are not reported, since discordance with absolute values may lead to misinterpretation of CBC data. Current Interpretive Data was last revised on 2017. Imm gran pct 0.8 % [facility] Comment: Interpretive Data Percent cell count reference ranges are not reported, since discordance with absolute values may lead to misinterpretation of CBC data. Current Interpretive Data was last revised on 2017. Lymphocyte pct 31.3 % [facility] Comment: Interpretive Data Percent cell count reference ranges are not reported, since discordance with absolute values may lead to misinterpretation of CBC data. Current Interpretive Data was last revised on 2017. Monocyte pct 7.2 % [facility] Comment: Interpretive Data Percent cell count reference ranges are not reported, since discordance with absolute values may lead to misinterpretation of CBC data. Current Interpretive Data was last revised on 2017. Eosinophil pct 6.0 % [facility] Comment: Interpretive Data Percent cell count reference ranges are not reported, since discordance with absolute values may lead to misinterpretation of CBC data. Current Interpretive Data was last revised on 2017. Basophil pct 0.4 % [facility] Comment: Interpretive Data Percent cell count reference ranges are not reported, since discordance with absolute values may lead to misinterpretation of CBC data. Current Interpretive Data was last revised on 2017. Blood 07/07/2024 8:41 PM [employer] 07/07/2024 8:53 PM [employer] us Federico Kelley MD LAB BLOOD ORDERABLES Antonina jhaveri Result [facility] Department [place] [address] * (ABNORMAL) CBC with auto differential (07/07/2024 8:41 PM [employer]) WBC 4.9 3.8 - 9.9 K/cumm Hgb 10.4(L) 13.0 - 17.5 g/dL [facility] Hct 33.1(L) 38.9 - 50.3 % [facility] Plt 559(H) 150 - 400 K/cumm [facility] MPV 8.8(L) 9.1 - 12.3 fL [facility] RBC 4.32 4.30 - 5.80 M/cumm [facility] MCV 76.6(L) 81.3 - 96.4 fL [facility] MCH 24.1(L) 27.1 - 33.3 pg [facility] MCHC 31.4(L) 32.3 - 35.7 g/dL [facility] RDW CV 17.2(H) 11.1 - 14.9 % [facility] RDW SD 47.8 35.7 - 48.1 fL [facility] NRBC abs 0.00 0.00 - 0.01 K/cumm [facility] Blood 07/07/2024 8:41 PM [employer] 07/07/2024 8:53 PM [employer] Federico Kelley MD LAB BLOOD ORDERABLES Antonina l Result Performing Organization Address City/[facility]/ZIP Co de Phone Number [facility] [place] [address] * Magnesium (07/07/2024 8:41 PM [employer]) [facility] Magnesium 1.8 1.4 - 2.5 mg/dL Blood 07/07/2024 8:4 1 PM [employer] 07/07/2024 8:53 PM [employer] us Federico Kelley MD LAB BLOOD ORDERABLES Antonina l Result [facility] [place] [address] * Basic metabolic panel (07/07/2024 8:41 PM [employer]) [facility] Sodium 141 135 - 145 mmol/L Potassium, pl 4.5 3.3 - 4.9 mmol/L [facility] Chloride 106 97 - 110 mmol/L [facility] CO2 27 22 - 32 mmol/L [facility] Anion gap 8 2 - 15 mmol/L [facility] BUN 11 6 - 25 mg/dL [facility] Creatinine 1.00 0.80 - 1.30 mg/dL [facility] Glucose 110 70 - 199 mg/dL [facility] Comment: Interpretive Data Fasting glucose [...] 2022. Calcium 8.7 8.5 - 10.3 mg/dL [facility] Blood 07/07/2024 8:41 PM [employer] 07/07/2024 8:53 PM [employer] Federico Kelley MD LAB BLOOD ORDERABLES Antonina jhaveri Result [facility] Department [place] [address] * Infection Prevention Delroy auris PCR, surveillance Axilla/Groin (07/07/2024 4:44 AM [employer]) Delroy auris DNA Not Detected Not Detected [facility] Comment: Interpretive Data Testing performed by [facility] Molecular Infectious Disease Laboratory using the [employer] Liaison MDX Delroy auris assay. ??This assay detects DNA from Delroy auris using Real-Time PCR. ??This assay is laboratory developed and is not cleared by the [place] Food and Drug Administration. ??The performance characteristics have been verified by the [facility] Infectious Disease Laboratory. Interpretive data was last reviewed on 11/14/2023 Axilla/Groin 07/07/2024 4:44 AM [employer] 07/07/2024 5:05 AM [employer] us Sancho Hart MD LAB MICROBIOLOGY - GENERAL ORDER ALOK Final Result Performing Organization Address City/[facility] Co de Phone Number [facility] Department [place] [address] BJ * eGFR (07/07/2024 1:14 AM [employer]) eGFR >90 >=60 mL/min/1. 73 m2 Comment: [...] last reviewed 2021. Blood 07/07/2024 1:14 AM [employer] 07/07/2024 1:22 AM [employer] us Federico Kelley MD LAB BLOOD ORDERABLES Antonina l Result Performing Organization Address City/[facility]/ZIP Co de Phone Number [facility] [place] [address] * Differential, auto (07/07/2024 1:14 AM [employer]) Neutrophil abs 2.4 1.5 - 6.5 K/cumm Imm gran abs 0.0 0.0 - 0.1 K/cumm [facility] Lymphocyte abs 1.4 0.8 - 3.3 K/cumm [facility] Monocyte abs 0.4 0.2 - 0.8 K/cumm [facility] Eosinophil abs 0.3 0.0 - 0.5 K/cumm [facility] Basophil abs 0.0 0.0 - 0.1 K/cumm [facility] Neutrophil pct 51.8 % [facility] Comment: Interpretive Data Percent cell count reference ranges are not reported, since discordance with absolute values may lead to misinterpretation of CBC data. Current Interpretive Data was last revised on 2017. Imm gran pct 0.4 % [facility] Comment: Interpretive Data Percent cell count reference ranges are not reported, since discordance with absolute values may lead to misinterpretation of CBC data. Current Interpretive Data was last revised on 2017. Lymphocyte pct 31.6 % [facility] Comment: Interpretive Data Percent cell count reference ranges are not reported, since discordance with absolute values may lead to misinterpretation of CBC data. Current Interpretive Data was last revised on 2017. Monocyte pct 8.3 % [facility] Comment: Interpretive Data Percent cell count reference ranges are not reported, since discordance with absolute values may lead to misinterpretation of CBC data. Current Interpretive Data was last revised on 2017. Eosinophil pct 7.2 % [facility] Comment: Interpretive Data Percent cell count reference ranges are not reported, since discordance with absolute values may lead to misinterpretation of CBC data. Current Interpretive Data was last revised on 2017. Basophil pct 0.7 % [facility] Comment: Interpretive Data Percent cell count reference ranges are not reported, since discordance with absolute values may lead to misinterpretation of CBC data. Current Interpretive Data was last revised on 2017. Blood 07/07/2024 1:14 AM [employer] 07/07/2024 1:22 AM [employer] Federico Kelley MD LAB BLOOD ORDERABLES Antonina shakila Result Performing Organization Address City/[facility]/ZIP Co de Phone Number [facility] Department [place] [address] * (ABNORMAL) CBC with auto differential (07/07/2024 1:14 AM [employer]) WBC 4.6 3.8 - 9.9 K/cumm Hgb 10.3(L) 13.0 - 17.5 g/dL [facility] Hct 32.4(L) 38.9 - 50.3 % [facility] Plt 462(H) 150 - 400 K/cumm [facility] MPV 9.2 9.1 - 12.3 fL [facility] RBC 4.21(L) 4.30 - 5.80 M/cumm [facility] MCV 77.0(L) 81.3 - 96.4 fL [facility] MCH 24.5(L) 27.1 - 33.3 pg [facility] MCHC 31.8(L) 32.3 - 35.7 g/dL [facility] RDW CV 17.3(H) 11.1 - 14.9 % [facility] RDW SD 48.2(H) 35.7 - 48.1 fL [facility] NRBC abs 0.00 0.00 - 0.01 K/cumm [facility] Blood 07/07/2024 1:14 AM [employer] 07/07/2024 1:22 AM [employer] Federico Kelley MD LAB BLOOD ORDERABLES Antonina l Result [facility] Department [place] [address] * Magnesium (07/07/2024 1:14 AM [employer]) Magnesium 1.9 1.4 - 2.5 mg/dL Blood 07/07/2024 1:14 AM [employer] 07/07/2024 1:22 AM [employer] Federico Kelley MD LAB BLOOD ORDERABLES Antonina l Result Performing Organization Address [facility] Co de Phone Number [facility] [place] [address] * (ABNORMAL) Vancomycin level trough Draw trough 30 minutes prior to 4th dose. (07/07/2024 1:14 AM [employer]) [facility] Vancomycin trough 5.0(L) 10.0 - 20.0 mcg/mL Blood 07/07/2024 1:14 AM [employer] 07/07/2024 1:22 AM [employer] Narrative [facility] - 07/07/2024 2:03 AM [employer] Draw trough 30 minutes prior to 4th dose. Reji Melara MD LAB BLOOD ORDERABLES Final Result Performing Organization Address [facility] de Phone Number [facility] [place] [address] * Basic metabolic panel (07/07/2024 1:14 AM [employer]) [facility] Sodium 140 135 - 145 mmol/L Potassium, pl 4.2 3.3 - 4.9 mmol/L [facility] Chloride 108 97 - 110 mmol/L [facility] CO2 25 22 - 32 mmol/L [facility] Anion gap 7 2 - 15 mmol/L [facility] BUN 14 6 - 25 mg/dL [facility] Creatinine 0.99 0.80 - 1.30 mg/dL [facility] Glucose 128 70 - 199 mg/dL [facility] Comment: Interpretive Data Fasting glucose [...] 2022. Calcium 8.5 8.5 - 10.3 mg/dL [facility] Blood 07/07/2024 1:14 AM [employer] 07/07/2024 1:22 AM [employer] us Federico Kelley MD LAB BLOOD ORDERABLES Antonina shakila Result [facility] Department [place] [address] * MRI Orbit W WO Contrast (07/06/2024 1:31 PM [employer]) Anatomical Region Laterality Modality Head and Neck N/A Magnetic Resonan ce 07/06/2024 2:00 PM [employer] Impressions 07/06/2024 2:50 PM [employer] 1. ??Questionable increased T2 signal and mild [...] Dallas Condon MD Narrative 07/06/2024 2:50 PM [employer] EXAMINATION: Magnetic resonance imaging (MRI) of the [...] Re sult * eGFR (07/06/2024 6:54 AM [employer]) eGFR >90 >=60 mL/min/1. 73 m2 Comment: [...] last reviewed 2021. Blood 07/06/2024 6:54 AM [employer] 07/06/2024 7:39 AM [employer] us Federico Kelley MD LAB BLOOD ORDERABLES Antonina jhaveri Result [facility] Department [place] [address] * Differential, auto (07/06/2024 6:54 AM [employer]) Neutrophil abs 2.8 1.5 - 6.5 K/cumm Imm gran abs 0.0 0.0 - 0.1 K/cumm [facility] Lymphocyte abs 1.1 0.8 - 3.3 K/cumm [facility] Monocyte abs 0.4 0.2 - 0.8 K/cumm [facility] Eosinophil abs 0.2 0.0 - 0.5 K/cumm [facility] Basophil abs 0.0 0.0 - 0.1 K/cumm [facility] Neutrophil pct 61.9 % [facility] Comment: Interpretive Data Percent cell count reference ranges are not reported, since discordance with absolute values may lead to misinterpretation of CBC data. Current Interpretive Data was last revised on 2017. Imm gran pct 0.7 % [facility] Comment: Interpretive Data Percent cell count reference ranges are not reported, since discordance with absolute values may lead to misinterpretation of CBC data. Current Interpretive Data was last revised on 2017. Lymphocyte pct 23.6 % [facility] Comment: Interpretive Data Percent cell count reference ranges are not reported, since discordance with absolute values may lead to misinterpretation of CBC data. Current Interpretive Data was last revised on 2017. Monocyte pct 7.9 % [facility] Comment: Interpretive Data Percent cell count reference ranges are not reported, since discordance with absolute values may lead to misinterpretation of CBC data. Current Interpretive Data was last revised on 2017. Eosinophil pct 5.2 % [facility] Comment: Interpretive Data Percent cell count reference ranges are not reported, since discordance with absolute values may lead to misinterpretation of CBC data. Current Interpretive Data was last revised on 2017. Basophil pct 0.7 % [facility] Comment: Interpretive Data Percent cell count reference ranges are not reported, since discordance with absolute values may lead to misinterpretation of CBC data. Current Interpretive Data was last revised on 2017. Blood 07/06/2024 6:54 AM [employer] 07/06/2024 7:13 AM [employer] us Federico Kelley MD LAB BLOOD ORDERABLES Antonina jhaveri Result Performing Organization Address [facility] Co de Phone Number [facility] Department [place] [address] * (ABNORMAL) CBC with auto differential (07/06/2024 6:54 AM [employer]) WBC 4.6 3.8 - 9.9 K/cumm Hgb 11.3(L) 13.0 - 17.5 g/dL [facility] Hct 36.1(L) 38.9 - 50.3 % [facility] Plt 368 150 - 400 K/cumm [facility] MPV 9.6 9.1 - 12.3 fL [facility] RBC 4.73 4.30 - 5.80 M/cumm [facility] MCV 76.3(L) 81.3 - 96.4 fL [facility] MCH 23.9(L) 27.1 - 33.3 pg [facility] MCHC 31.3(L) 32.3 - 35.7 g/dL [facility] RDW CV 17.2(H) 11.1 - 14.9 % [facility] RDW SD 47.4 35.7 - 48.1 fL [facility] NRBC abs 0.00 0.00 - 0.01 K/cumm [facility] Blood 07/06/2024 6:54 AM [employer] 07/06/2024 7:13 AM [employer] us Federico Kelley MD LAB BLOOD ORDERABLES Antonina jhaveri Result Performing Organization Address [facility]/ZIP Co de Phone Number [facility] Department [place] [address] * Magnesium (07/06/2024 6:54 AM [employer]) Pathologist [facility] Magnesium 2.0 1.4 - 2.5 mg/dL Blood 07/06/2024 6:54 AM [employer] 07/06/2024 7:12 AM [employer] us Federico Kelley MD LAB BLOOD ORDERABLES Antonina l Result Performing Organization Address [facility]/ZIP Co la Phone Number [facility] Department [place] [address] * (ABNORMAL) Basic metabolic panel (07/06/2024 6:54 AM [employer]) [facility] Sodium 139 135 - 145 mmol/L Potassium, pl 4.0 3.3 - 4.9 mmol/L [facility] Comment:Hemolyzed; Potassium value may be falsely elevated by as much as 0.3-0.5 mmol/L. Suggest redraw and reanalysis. Chloride 107 97 - 110 mmol/L [facility] CO2 24 22 - 32 mmol/L [facility] Anion gap 8 2 - 15 mmol/L [facility] BUN 10 6 - 25 mg/dL [facility] Creatinine 0.96 0.80 - 1.30 mg/dL [facility] Glucose 138 70 - 199 mg/dL [facility] Comment: Interpretive Data Fasting glucose [...] 2022. Calcium 8.3(L) 8.5 - 10.3 mg/dL [facility] Blood 07/06/2024 6:54 AM [employer] 07/06/2024 7:12 AM [employer] Federico Kelley MD LAB BLOOD ORDERABLES Antonina l Result Performing Organization Address City/[facility]/ZIP Co de Phone Number [facility] Department [place] [address] * Blood culture Blood (07/05/2024 4:10 PM [employer]) Report Final Report: No growth Blood 07/05/2024 4:10 PM [employer] 07/05/2024 4:26 PM [employer] Narrative [facility] - 07/10/2024 7:00 AM [employer] From a different site than #1. Collection->Peripheral [...] characteristics have been verified by the [facility] Microbiology Laboratory. For questions about this culture, contact the Microbiology Laboratory at [phone]. Interpretive data was last revised on 24. Dorothy Martinez MD LAB MICROBIOLOGY - GENERAL O RDERABLES Final Result Performing Organization Address City/[facility] Co de Phone Number JOE [facility] Department [place] [address] * Blood culture Blood (07/05/2024 4:10 PM [employer]) Report Final Report: No growth Blood 07/05/2024 4:10 PM [employer] 07/05/2024 4:26 PM [employer] Narrative JOE HAYWARD - 07/10/2024 7:00 AM [employer] Collection->Peripheral 1. ?Blood cultures are incubated for [...] characteristics have been verified by the [facility] Microbiology Laboratory. For questions about this culture, contact the Microbiology Laboratory at [phone]. Interpretive data was last revised on 24. Dorothy Martinez MD LAB MICROBIOLOGY - GENERAL O RDERABLES Final Result JOE [facility] Department [place] [address] * Ethanol (07/05/2024 3:55 PM [employer]) Ethanol <10 <=10 mg/dL Comment: Interpretive Data Legal limit of intoxication > or = 80 mg/dL Levels > or = 400 mg/dL are potentially TOXIC. Current interpretive data was last revised on 2018. Blood 07/05/2024 3:55 PM [employer] 07/05/2024 4:47 PM [employer] us Reji Melara MD LAB BLOOD ORDERABLES Final Result [facility] Department [place] [address] * (ABNORMAL) Drugs of Abuse Screen, Urine with Reflex Confirmation (07/05/2024 12:29 PM [employer]) Amphetamine, ur Screen Positive, presumptive (A) CutOff 500ng/mL Comment: Interpretive Data - Amphetamines: ??Samples containing greater than 500 ng/mL d-methamphetamine ??or other cross-reacting amphetamine compounds are reported as positive. ??Amphetamine immunoassays are subject to significant false positive rates due to cross-reactivity of non-amphetamine drugs. Confirmatory testing required for definitive results. Current Interpretive Data was last reviewed 2023. Barbiturates, ur Not Detected CutOff 200ng/mL JOE [facility] Comment: Interpretive Data - Barbiturates: ??Samples containing greater than 200 ng/mL secobarbital or other cross-reacting barbiturate compounds are reported as positive. ??False positive and false negative results are possible. Confirmatory testing required for definitive results. Current Interpretive Data was last reviewed 2023. Benzodiazepines, ur Not Detected CutOff 100ng/mL JOE [facility] Comment: Interpretive Data - Benzodiazepines: ??Samples containing greater than 100 ng/mL nordiazepam or other cross-reacting compounds are reported as positive. False positive and false negative results are possible. Confirmatory testing required for definitive results. Current Interpretive Data was last reviewed 2023. Cannabinoids, ur Not Detected CutOff 50 ng/mL [facility]E [facility] Comment: Interpretive Data - Cannabinoids: ??Samples containing greater than 50 ng/mL delta-9 THC -COOH or other cross-reacting compounds are reported as positive. ??False positive and false negative results are possible. ??Confirmatory testing required for definitive results. Current Interpretive Data was last reviewed 2023. Cocaine, ur Not Detected CutOff 150ng/mL [facility] Comment: Interpretive Data - Cocaine: ??Samples containing greater than 150 ng/mL benzoylecgonine or other cross-reacting compounds are reported as positive. False positive and false negative results are possible. Confirmatory testing required for definitive results. Current Interpretive Data was last reviewed 2023. Fentanyl, Ur Not Detected CutOff 5 ng/mL [facility] Comment: Interpretive Data - Fentanyl: ?? Samples containing greater than 5 ng/mL norfentanyl, fentanyl, or other cross-reacting fentanyl compounds are reported as positive. False positive and false negative results are possible. Confirmatory testing required for definitive results. Current Interpretive Data was last reviewed 2023. Methadone, ur Not Detected CutOff 300ng/mL [facility] Comment: Interpretive Data - Methadone: ??Samples containing greater than 300 ng/mL d,l-methadone or other cross-reacting compounds are reported as positive. ??False positive and false negative results are possible. Confirmatory testing required for definitive results. Current Interpretive Data was last reviewed 2023. Opiates, ur Not Detected CutOff 300ng/mL [facility] Comment: Interpretive Data - Opiates: ??Samples containing greater than 300 ng/mL morphine or other cross-reacting compounds are reported as positive. ??False positive and false negative results are possible. Confirmatory testing required for definitive results. Current Interpretive Data was last reviewed 2023. Oxycodone, ur Not Detected CutOff 100ng/mL [facility] Comment: Interpretive Data - Oxycodone: ??Samples containing greater than 100 ng/mL oxycodone or other cross-reacting compounds are reported as ??positive. ??False positive and false negative results are possible. Confirmatory testing required for definitive results. Current Interpretive Data was last reviewed 2023. Phencyclidine, ur Not Detected CutOff 25 ng/mL [facility] Comment: Interpretive Data - Phencyclidine: ??Samples containing greater than 25 ng/mL phencyclidine or other cross-reacting compounds are reported as positive. ??False positive and false negative results are possible. Confirmatory testing required for definitive results. Current Interpretive Data was last reviewed 2023. Urine Creatinine 78 mg/dL [facility] Comment: Interpretive Data Urine Creatinine: < 10 mg/dL is extremely dilute = or > 10 but < 20 mg/dL is dilute = or > 20 mg/dL is normal Current Interpretive Data was last revised on 2017. Urine 07/05/2024 12:2 9 PM [employer] 07/05/2024 3:37 PM [employer] [facility]ative [facility] - 07/05/2024 4:05 PM [employer] Drug of Abuse screening is performed by immunoassay for medical purposes only. ??This is not to be used for Pain Management purposes. ??If Detected, confirmation testing will be performed for Amphetamines, Cocaine, Fentanyl, Methadone, Opiates, Oxycodone or Phencyclidine. Cari Steven MD LAB URINE ORDERABLES Antonina l Result Performing Organization Address [facility] Co de Phone Number [facility] [place] [address] * (ABNORMAL) Amphetamine Confirmation, Urine (07/05/2024 12:29 PM [employer]) Pathologist [facility] Amphetamine Conf, Ur Confirmed Positive(A) CutOff 150ng/mL Methamphetamine Conf, Ur Confirmed Positive(A) CutOff 150ng/mL [facility]ERN[facility] MDA Conf, Ur Does Not Confirm CutOff 150ng/mL [facility] MDMA Conf, Ur Does Not Confirm CutOff [...] needed. Performance characteristics were determined by the [facility] in a manner consistent with CLIA requirement and has not been cleared or approved by the U.S. Food and Drug Administration. Current interpretive data was last revised on 2020. Urine 07/05/2024 12:2 9 PM [employer] 07/05/2024 3:37 PM [employer] Cari Steven MD LAB URINE ORDERABLES Antonina l Result Performing Organization Address City/[facility]/ZIP Co de Phone Number [facility] Department [place] [address] * POCT glucose (07/05/2024 12:19 PM [employer]) Pathologist [facility] Glucose, POC 114 70 - 199 mg/dL Blood 07/05/2024 12:1 9 PM [employer] 07/05/2024 12:19 PM [employer] Reji Melara MD LAB POCT ORDERABLES - DEVIC E Final Result [facility] Department [place] [address] * HIV-1 Genotypic Drug Resistance Blood (07/05/2024 6:55 AM [employer]) [facility] HIV-1, genotypic drug resistance TNP Comment: HIV-1 Genotypic Drug Resistance, P was cancelled on 07/09/2024 at 11:35; Duplicate test request. Test Performed by: [facility] [address] [place] [address] Travel Administrator: Asim Shukla Ph.D.; CLIA# [id number] HIV-1 group M subtype Not Reported [facility] Nucleos(t)onofre RT mutations Not Reported [facility] Reverse Transcriptase failed codons Not Reported [facility] Abacavir Not Reported [facility] Didanosine Not Reported [facility] Emtricitabine Not Reported [facility] Lamivudine Not Reported [facility] Stavudine Not Reported [facility] Tenofovir Not Reported [facility] Zidovudine Not Reported [facility] Nonnucleoside RT mutations Not Reported [facility] Doravirine Not Reported [facility] Efavirenz Not Reported [facility] Etravirine Not Reported [facility] Nevirapine Not Reported [facility] Rilpivirine Not Reported [facility] Protease Mutations Not Reported [facility] Protease failed codons Not Reported [facility] Atazanavir w/ Ritonavir Not Reported [facility] Darunavir w/ Ritonavir Not Reported [facility] Fosamprenavir w/ Ritonavir Not Reported [facility] Indinavir w/ Ritonavir Not Reported [facility] Lopinavir w/ Ritonavir Not Reported [facility] Nelfinavir Not Reported [facility] Saquinavir w/ Ritonavir Not Reported [facility] Tipranavir w/ Ritonavir Not Reported [facility] Integrase Mutations Not Reported [facility] Integrase failed codons Not Reported [facility] Bictegravir Not Reported [facility] Cabotegravir Not Reported [facility] Dolutegravir Not Reported [facility] Elvitegravir Not Reported [facility] Raltegravir Not Reported [facility] Prior documented HIV RNA copies/mL Not Reported [facility] Blood 07/05/2024 6:55 AM [employer] 07/07/2024 12:11 PM [employer] Reji Melara MD LAB MICROBIOLOGY - GENERAL ORDERABLES Final Result Performing Organization Address [facility] de Phone Number [facility] Department [place] [address] * N. gonorrhoeae/C. trachomatis Amplification Urine (07/05/2024 6:39 AM [employer]) C. trachomatis Not Detected Not Detected [facility] N. gonorrhoeae Not Detected Not Detected [facility] Comment: Interpretive Data This assay detects Chlamydia trachomatis and Neisseria gonorrhoeae by nucleic acid amplification testing (NAAT). This assay has been cleared by the [place] Food and Drug administration. The performance characteristics of this test have been verified by the [facility] Molecular Infectious Disease laboratory. The performance characteristics of this test have not been evaluated in individuals less than 14 years of age. Current Interpretive Data last revised 2023. Urine (None) 07/05/2024 6:39 AM [employer] 07/05/2024 6:54 AM [employer] Reji Melara MD LAB MICROBIOLOGY - GENERAL ORDERABLES Final Result Performing Organization Address [facility] Co de Phone Number [facility] Department [place] [address] [facility] * Trichomonas vaginalis PCR Urine (07/05/2024 6:39 AM [employer]) [facility] Trichomonas DNA Not Detected Not Detected [facility] Comment: Interpretive Data This assay detects Trichomonas vaginalis by nucleic acid amplification testing (NAAT). This assay has been cleared by the [place] Food and Drug administration. The performance characteristics of this test have been verified by the [facility] Molecular Infectious Disease laboratory. Excess blood in specimens may be inhibitory and result in false negative results. ??The performance of this test has not been evaluated in women or individuals less than 18 years of age. Current Interpretive Data last revised 2023. Urine 07/05/2024 6:39 AM [employer] 07/05/2024 6:54 AM [employer] Reji Melara MD LAB MICROBIOLOGY - GENERAL ORDERABLES Final Result Performing Organization Address [facility]/ZIP Co de Phone Number [facility] Department [place] [address] [facility] * Hepatitis panel, acute Blood (07/05/2024 6:10 AM [employer]) [facility] Hep A IgM Nonreactive Nonreactive Hep B core IgM Nonreactive Nonreactive [facility] Hep C Ab Nonreactive Nonreactive [facility] Comment:Antibodies to HCV no t detected. Does NOT exclude the possibility of recent exposure to HCV. Current interpretive data was last revised on 22 HepBsAg Nonreactive Nonreactive [facility] Blood 07/05/2024 6:10 AM [employer] 07/05/2024 6:35 AM [employer] Reji Melara MD LAB MICROBIOLOGY - GENERAL ORDERABLES Final Result Performing Organization Address City/[facility]/ZIP Co de Phone Number [facility] [place] [address] * (ABNORMAL) HIV-1 RNA PCR, quantitative Blood (07/05/2024 6:10 AM [employer]) [facility] HIV-1 RNA Detected( A) [facility] Comment: The quantifiable range of this assay is 20 copies/mL to 10,000,000 copies/mL (1.30 log copies/mL to 7.00 log copies/mL). ??Testing was performed by the NEERU 6800 HIV-1 Test([employer] Testing performed at [facility] Current Interpretive Data was last revised on 2021. HIV-1 RNA, copies/mL 103,000 copies/mL [facility] HIV-1 RNA, log 5.01 log cps/mL [facility] Blood 07/05/2024 6:10 AM [employer] 07/05/2024 7:17 AM [employer] Reji Melara MD LAB MICROBIOLOGY - GENERAL ORDERABLES Final Result Performing Organization Address [facility] Co de Phone Number [facility] Department [place] [address] [facility] * POCT glucose (07/05/2024 5:55 AM [employer]) [facility] Glucose, POC 113 70 - 199 mg/dL Blood 07/05/2024 5:55 AM [employer] 07/05/2024 5:55 AM [employer] Result [facility] Reji Melara MD LAB POCT ORDERABLES - DEVIC E Final Result Performing Organization Address City/[facility] de Phone Number [facility] [place] [address] * eGFR (07/04/2024 9:39 PM [employer]) [facility] eGFR 81 >=60 mL/min/1. 73 m2 Comment: [...] last reviewed 2021. Blood 07/04/2024 9:39 PM [employer] 07/04/2024 9:53 PM [employer] us Federico Kelley MD LAB BLOOD ORDERABLES Antonina jhaveri Result [facility] Department [place] [address] * (ABNORMAL) Differential, auto (07/04/2024 9:39 PM [employer]) Pathologist [facility] Neutrophil abs 6.8(H) 1.5 - 6.5 K/cumm Imm gran abs 0.2(H) 0.0 - 0.1 K/cumm [facility] Lymphocyte abs 1.1 0.8 - 3.3 K/cumm [facility] Monocyte abs 0.6 0.2 - 0.8 K/cumm [facility] Eosinophil abs 0.0 0.0 - 0.5 K/cumm [facility] Basophil abs 0.0 0.0 - 0.1 K/cumm [facility] Neutrophil pct 78.0 % [facility] Comment: Interpretive Data Percent cell count reference ranges are not reported, since discordance with absolute values may lead to misinterpretation of CBC data. Current Interpretive Data was last revised on 2017. Imm gran pct 2.0 % [facility] Comment: Interpretive Data Percent cell count reference ranges are not reported, since discordance with absolute values may lead to misinterpretation of CBC data. Current Interpretive Data was last revised on 2017. Lymphocyte pct 13.0 % [facility] Comment: Interpretive Data Percent cell count reference ranges are not reported, since discordance with absolute values may lead to misinterpretation of CBC data. Current Interpretive Data was last revised on 2017. Monocyte pct 6.6 % [facility] Comment: Interpretive Data Percent cell count reference ranges are not reported, since discordance with absolute values may lead to misinterpretation of CBC data. Current Interpretive Data was last revised on 2017. Eosinophil pct 0.1 % [facility] Comment: Interpretive Data Percent cell count reference ranges are not reported, since discordance with absolute values may lead to misinterpretation of CBC data. Current Interpretive Data was last revised on 2017. Basophil pct 0.3 % [facility] Comment: Interpretive Data Percent cell count reference ranges are not reported, since discordance with absolute values may lead to misinterpretation of CBC data. Current Interpretive Data was last revised on 2017. Blood 07/04/2024 9:39 PM [employer] 07/04/2024 9:53 PM [employer] us Federico Kelley MD LAB BLOOD ORDERABLES Antonina jhaveri Result [facility] Department [place] [address] * (ABNORMAL) CBC with auto differential (07/04/2024 9:39 PM [employer]) WBC 8.7 3.8 - 9.9 K/cumm Hgb 10.1(L) 13.0 - 17.5 g/dL [facility] Hct 31.6(L) 38.9 - 50.3 % [facility] Plt 260 150 - 400 K/cumm [facility] MPV 9.9 9.1 - 12.3 fL [facility] RBC 4.18(L) 4.30 - 5.80 M/cumm [facility] MCV 75.6(L) 81.3 - 96.4 fL [facility] MCH 24.2(L) 27.1 - 33.3 pg [facility] MCHC 32.0(L) 32.3 - 35.7 g/dL [facility] RDW CV 16.9(H) 11.1 - 14.9 % [facility] RDW SD 45.7 35.7 - 48.1 fL [facility] NRBC abs 0.00 0.00 - 0.01 K/cumm [facility] Blood 07/04/2024 9:39 PM [employer] 07/04/2024 9:53 PM [employer] Federico Kelley MD LAB BLOOD ORDERABLES Antonina l Result Performing Organization Address [facility] de Phone Number [facility] Department [place] [address] * Magnesium (07/04/2024 9:39 PM [employer]) [facility] Magnesium 1.7 1.4 - 2.5 mg/dL Blood 07/04/2024 9:39 PM [employer] 07/04/2024 9:53 PM [employer] Federico Kelley MD LAB BLOOD ORDERABLES Antonina l Result Performing Organization Address City/[facility] de Phone Number [facility] [place] [address] * (ABNORMAL) Basic metabolic panel (07/04/2024 9:39 PM [employer]) [facility] Sodium 138 135 - 145 mmol/L Potassium, pl 3.7 3.3 - 4.9 mmol/L [facility] Chloride 104 97 - 110 mmol/L [facility] CO2 27 22 - 32 mmol/L [facility] Anion gap 7 2 - 15 mmol/L [facility] BUN 14 6 - 25 mg/dL [facility] Creatinine 1.23 0.80 - 1.30 mg/dL [facility] Glucose 106 70 - 199 mg/dL [facility] Comment: Interpretive Data Fasting glucose [...] 2022. Calcium 8.1(L) 8.5 - 10.3 mg/dL [facility] Blood 07/04/2024 9:39 PM [employer] 07/04/2024 9:53 PM [employer] Federico Kelley MD LAB BLOOD ORDERABLES Antonina jhaveri Result [facility] Department [place] [address] * US Kidney Complete (07/04/2024 5:13 PM [employer]) Anatomical Region Laterality Modality Kidney N/A Ultrasound 07/04/2024 5:36 PM [employer] Impressions 07/04/2024 5:46 PM [employer] Mixed cystic and solid lesion in the [...] Yeimy Billingsley M.D. Narrative 07/04/2024 5:46 PM [employer] EXAMINATION: COMPLETE RENAL SONOGRAM HISTORY: ??Left-sided flank [...] agrees with it. Electronically signed by: Yeimy Nishi Billingsley, M.D. us Karen Barrientos MD IMG US PROCEDURES Fi nal Result * Blood culture Blood (07/04/2024 4:57 PM [employer]) Report Final Report: No growth Blood 07/04/2024 4:57 PM [employer] 07/04/2024 5:10 PM [employer] Narrative JOE IBRAHIM - 07/09/2024 7:00 AM [employer] Collection->Peripheral 1. ?Blood cultures are incubated for [...] characteristics have been verified by the [facility] Microbiology Laboratory. For questions about this culture, contact the Microbiology Laboratory at [phone]. Interpretive data was last revised on 24. us Federico Kelley MD LAB MICROBIOLOGY - GENERA L ORDERABLES Final Result JOE IBRAHIM [facility] [place] [address] * (ABNORMAL) Blood culture Blood (07/04/2024 4:57 PM [employer]) Direct Specimen Exam Molecular Analysis: Staphylococcus species detected by the [employer] BCID-GP panel. Single positive culture may represent contamination. This is most suggestive of a coagulase-negative Staphylococcus species. Please refer to final culture-based result for confirmation. This test does not exclude the possibility of a mixed bacterial infection. Notification of: Staphylococcus species called to and read back by: Dorothy Martinez MD ([phone]) on 07/05/2024 10:24 by: Munira Blair MT Direct Specimen Exam Stain: Gram Positive Cocci in clusters Time to culture positivity (aerobic media): 14.3 hours Notification of: Gram Positive Cocci in clusters called to and read back by: MD Michelle ([phone]) on 07/05/2024 08:19 by: Munira Blair MT [facility] Report Final Report: Staphylococcus haemolyticus Single blood culture positive for this microorganism. ??Isolate is a possible contaminant. If a similar isolate is recovered from a second blood culture collected within 3 days of this culture, both will be evaluated and, if determined to be the same species, antimicrobial susceptibility testing will be performed. (.) [facility] Organism STAPHYLOCOCCUS HAEMOLYTICUS [facility] Blood 07/04/2024 4:57 PM [employer] 07/04/2024 5:09 PM [employer] Narrative [facility] - 07/09/2024 8:42 PM [employer] Collection->Peripheral 1. ?Blood cultures are incubated for [...] characteristics have been verified by the [facility] Microbiology Laboratory. For questions about this culture, contact the Microbiology Laboratory at [phone]. Interpretive data was last revised on 24. us Federico Kelley MD LAB MICROBIOLOGY - GENERA L ORDERABLES Final Result JOE [facility] Department [place] [address] * MRI Brain Incl Orbits W WO Contrast (07/04/2024 2:42 PM [employer]) Anatomical Region Laterality Modality Head and Neck N/A Magnetic Resonan ce 07/04/2024 3:23 PM [employer] Impressions 07/04/2024 3:36 PM [employer] No MR evidence of acute intracranial abnormality. [...] Gwendolyn Gonzalez M.D. Narrative 07/04/2024 3:36 PM [employer] EXAMINATION: 1. Magnetic resonance imaging (MRI) of [...] Abdomen Pelvis W Contrast (07/04/2024 12:25 PM [employer]) Anatomical Region Laterality Modality Body N/A Computed Tomogra phy 07/04/2024 12:3 4 PM [employer] Impressions 07/04/2024 12:34 PM [employer] Bilateral pyelonephritis and pyelitis. Electronically signed by: Juan Mason M.D. Narrative 07/04/2024 12:34 PM [employer] EXAMINATION: ??Computed tomography of the abdomen and [...] Sepsis Lactate w/ Reflex (07/04/2024 11:28 AM [employer]) Sepsis Lactate 0.6(L) 0.7 - 2.0 mmol/L Blood 07/04/2024 11:2 8 AM [employer] 07/04/2024 11:46 AM [employer] Karen Barrientos MD LAB BLOOD ORDERABLES Final Result JOE [facility] Department [place] [address] * (ABNORMAL) Blood culture Blood (07/04/2024 11:28 AM [employer]) [facility] Direct Specimen Exam Molecular Analysis: Presumptive Escherichia coli detected by neeru ePlex BCID-GN panel. This test does not exclude the possibility of a mixed bacterial infection. Notification of: Escherichia coli called to and read back by: Martha Haynes MD [phone] on 07/05/2024 02:55:57 by: Peyton Linn MT Direct Specimen Exam Stain: Gram Negative Bacilli Time to culture positivity (aerobic media): 10.9 hours Notification of: Gram Negative Bacilli called to and read back by: Peter Castle MD [phone] on 07/04/2024 23:43:05 by: Peyton Linn [facility] Report Final Report: Escherichia coli (.) [facility] Organism ESCHERICHIA COLI [facility] Blood 07/04/2024 11:2 8 AM [employer] 07/04/2024 11:49 AM [employer] Narrative [facility] - 07/09/2024 2:38 PM [employer] Collection->Peripheral 1. ?Blood cultures are incubated for [...] characteristics have been verified by the [facility] Microbiology Laboratory. For questions about this culture, contact the Microbiology Laboratory at [phone]. Interpretive data was last revised on 24. [...] MICROBIOLOGY - G ENERAL ORDERABLES Final Result [facility] Department [place] [address] * Blood culture Blood (07/04/2024 11:28 AM [employer]) Report Final Report: No growth Blood 07/04/2024 11:2 8 AM [employer] 07/04/2024 11:49 AM [employer] Narrative [facility] - 07/08/2024 12:00 PM [employer] Collection->Peripheral 1. ?Blood cultures are incubated for [...] characteristics have been verified by the [facility] Microbiology Laboratory. For questions about this culture, contact the Microbiology Laboratory at [phone]. Interpretive data was last revised on 24. us Karen Barrientos MD LAB MICROBIOLOGY - G ENERAL ORDERABLES Final Result JOE [facility] Department [place] [address] * POCUS Retroperitoneal (AAA or Renal) (07/04/2024 11:21 AM [employer]) Anatomical Region Laterality Modality Other 07/04/2024 11:0 9 AM [employer] Narrative 07/07/2024 12:53 PM [employer] Performed by: Roma Mckoy Renal/Bladder: ?Exam Information: [...] al Result * eGFR (07/04/2024 10:07 AM [employer]) eGFR >90 >=60 mL/min/1. 73 m2 Comment: [...] reviewed 2021. Blood 07/04/2024 10:0 7 AM [employer] 07/04/2024 10:27 AM [employer] us Nando Kennedy MD LAB BLOOD ORDERABLES Final Res ult [facility] Department [place] [address] * (ABNORMAL) Differential, auto (07/04/2024 10:07 AM [employer]) Pathologist [facility] Neutrophil abs 4.9 1.5 - 6.5 K/cumm Imm gran abs 0.1 0.0 - 0.1 K/cumm [facility] Lymphocyte abs 1.2 0.8 - 3.3 K/cumm [facility] Monocyte abs 0.9(H) 0.2 - 0.8 K/cumm [facility] Eosinophil abs 0.0 0.0 - 0.5 K/cumm [facility] Basophil abs 0.0 0.0 - 0.1 K/cumm [facility] Neutrophil pct 69.4 % [facility] Comment: Interpretive Data Percent cell count reference ranges are not reported, since discordance with absolute values may lead to misinterpretation of CBC data. Current Interpretive Data was last revised on 2017. Imm gran pct 1.7 % [facility] Comment: Interpretive Data Percent cell count reference ranges are not reported, since discordance with absolute values may lead to misinterpretation of CBC data. Current Interpretive Data was last revised on 2017. Lymphocyte pct 16.6 % [facility] Comment: Interpretive Data Percent cell count reference ranges are not reported, since discordance with absolute values may lead to misinterpretation of CBC data. Current Interpretive Data was last revised on 2017. Monocyte pct 11.9 % [facility] Comment: Interpretive Data Percent cell count reference ranges are not reported, since discordance with absolute values may lead to misinterpretation of CBC data. Current Interpretive Data was last revised on 2017. Eosinophil pct 0.1 % [facility] Comment: Interpretive Data Percent cell count reference ranges are not reported, since discordance with absolute values may lead to misinterpretation of CBC data. Current Interpretive Data was last revised on 2017. Basophil pct 0.3 % [facility] Comment: Interpretive Data Percent cell count reference ranges are not reported, since discordance with absolute values may lead to misinterpretation of CBC data. Current Interpretive Data was last revised on 2017. Blood 07/04/2024 10:0 7 AM [employer] 07/04/2024 10:27 AM [employer] us Nando Kennedy MD LAB BLOOD ORDERABLES Final Res ult [facility] Department [place] [address] * (ABNORMAL) Urinalysis reflex to microscopic and culture Urine (07/04/2024 10:07 AM [employer]) Color, ur Yellow Yellow Clarity, ur Cloudy(A) Clear [facility] Specific gravity, ur 1.012 1.003 - 1.030 [facility] pH, urine 6.5 [facility] Comment: Interpretive Data ? Urine pH is affected by diet, medications, systemic acid-base disturbances, and renal tubular function. ??pH may affect urinary stone formation. ??For example, urine pH below 6.0 may help reduce the tendency for calcium phosphate stones and pH greater than 6.0 may reduce the tendency for uric acid stone formation. Source: [facility] [employer] Current Interpretive Data was last revised on 2017 Protein, ur ql 1+(A) Negative [facility] Glucose, ur ql Negative Negative [facility] Ketones, ur Negative Negative [facility] Bilirubin, ur Negative Negative [facility] Blood, ur 2+(A) Negative [facility] Urobilinogen, ur <2.0 <2.0 mg/dL [facility] Nitrite, ur Positive(A) Negative [facility] Leukocyte esterase, ur 3+(A) Negative [facility] UA reflex comment Reflex to microscopic UA will be performed. [facility] Urine 07/04/2024 10:0 7 AM [employer] 07/04/2024 10:22 AM [employer] us Nando Kenndey MD LAB MICROBIOLOGY - GENERAL ORD ERABLES Final Result [facility] Department [place] [address] * (ABNORMAL) CBC with auto differential (07/04/2024 10:07 AM [employer]) WBC 7.1 3.8 - 9.9 K/cumm Hgb 10.9(L) 13.0 - 17.5 g/dL [facility] Hct 34.3(L) 38.9 - 50.3 % [facility] Plt 262 150 - 400 K/cumm [facility] MPV 10.3 9.1 - 12.3 fL [facility] RBC 4.50 4.30 - 5.80 M/cumm [facility] MCV 76.2(L) 81.3 - 96.4 fL [facility] MCH 24.2(L) 27.1 - 33.3 pg [facility] MCHC 31.8(L) 32.3 - 35.7 g/dL [facility] RDW CV 16.9(H) 11.1 - 14.9 % [facility] RDW SD 46.5 35.7 - 48.1 fL [facility] NRBC abs 0.00 0.00 - 0.01 K/cumm [facility] Blood 07/04/2024 10:0 7 AM [employer] 07/04/2024 10:27 AM [employer] Nando Kennedy MD LAB BLOOD ORDERABLES Final Res ult Performing Organization Address [facility] de Phone Number [facility] Department [place] [address] * (ABNORMAL) Urinalysis, microscopic only (07/04/2024 10:07 AM [employer]) WBC, ur >50(A) 0 - 5 /HPF RBC, ur 11-20(A) 0 - 2 /HPF [facility] Bacteria, ur 4+(A) [facility] Mucous, ur Present(A) [facility] Amorphous crystals, ur 1+(A) [facility] Culture Reflex Comment Reflex to urine culture will be performed. [facility] Urine 07/04/2024 10:0 7 AM [employer] 07/04/2024 10:22 AM [employer] Nando Kennedy MD LAB URINE ORDERABLES Final Res ult Performing Organization Address [facility] de Phone Number [facility] Department [place] [address] * (ABNORMAL) T-helper cells (CD4) count (07/04/2024 10:07 AM [employer]) CD4 pct 12(L) 31 - 64 % CD4 Absolute 132(L) 365 - 1,294 cells/mcL [facility] Blood 07/04/2024 10:0 7 AM [employer] 07/04/2024 10:24 AM [employer] Nando Kennedy MD LAB BLOOD ORDERABLES Final Res ult Performing Organization Address [facility]/ZIP Co de Phone Number [facility] Department [place] [address] * (ABNORMAL) Urine culture Urine (07/04/2024 10:07 AM [employer]) Report Final Report: Greater than or equal to 100,000 colonies/mL of Escherichia coli Plus growth of clinically insignificant bacterial vaibhav. (.) Organism ESCHERICHIA COLI [facility] Organism PLUS GROWTH OF CLINICALLY INSIGNIFICANT VAIBHAV. [facility] Urine 07/04/2024 10:0 7 AM [employer] 07/04/2024 11:42 AM [employer] Narrative [facility] - 07/06/2024 8:47 AM [employer] Urine culture reflexed based upon urinalysis results. Testing performed by [facility] Microbiology Laboratory ([phone]) Organism Antibiotic Method Susceptibility Escherichia coli Ampicillin [...] ORD ERABLES Final Result Performing Organization Address [facility]/ZIP Co de Phone Number [facility] Department [place] [address] * Lipase (07/04/2024 10:07 AM [employer]) Lipase 55 10 - 99 Units/L Blood 07/04/2024 10:0 7 AM [employer] 07/04/2024 10:27 AM [employer] Nando Kennedy MD LAB BLOOD ORDERABLES Final Res ult Performing Organization Address City/[facility]/ZIP Co de Phone Number [facility] Department [place] [address] * (ABNORMAL) Comprehensive metabolic panel (07/04/2024 10:07 AM [employer]) Sodium 142 135 - 145 mmol/L Potassium, pl 3.8 3.3 - 4.9 mmol/L [facility] Chloride 109 97 - 110 mmol/L [facility] CO2 23 22 - 32 mmol/L [facility] Anion gap 10 2 - 15 mmol/L [facility] BUN 13 6 - 25 mg/dL [facility] Creatinine 1.05 0.80 - 1.30 mg/dL [facility] Glucose 106 70 - 199 mg/dL [facility] Comment: Interpretive Data Fasting glucose [...] 2022. Calcium 8.7 8.5 - 10.3 mg/dL [facility] Bilirubin, total 0.3 0.1 - 1.2 mg/dL [facility] Protein, pl 7.2 6.5 - 8.5 g/dL [facility] Albumin 3.2(L) 3.5 - 5.0 g/dL [facility] Alk phos 88 40 - 130 Units/L [facility] ALT 41 7 - 55 Units/L [facility] AST 54(H) 10 - 50 Units/L [facility] Blood 07/04/2024 10:0 7 AM [employer] 07/04/2024 10:27 AM [employer] us Nando Kennedy MD LAB BLOOD ORDERABLES Final Res ult [facility] [place] [address] * ECG 12-LEAD (07/03/2024 8:45 AM [employer]) Narrative [facility] - 07/03/2024 8:45 AM [employer] Chas Friedman MD ? 07/03/2024 ??8:47 AM [...] in the ED Chas Friedman MD 07/03/24 0847 Rafa Billings MD ECG ORDERABLES Final Result Performing Organization Address [facility] Co de Phone Number [facility] * Troponin I high-sensitivity 2-hour (07/03/2024 7:25 AM [employer]) Pathologist [facility] Trop I hs <4 <=35 ng/L Comment: Interpretive Data For further hscTnI resources including the diagnostic algorithm and an aid in interpretation, copy and paste this link: https://bjhlab.testcatalog.org/show/hsTrop-[email or web address] Current Interpretive Data last revised 2020. Trop I hs delta 0 ng/L [facility] Trop I hs interp Insignificant [facility] Blood 07/03/2024 7:25 AM [employer] 07/03/2024 7:31 AM [employer] Result [facility] Brendan Cortes MD LAB BLOOD ORD ERABLES Final Result Performing Organization Address [facility] Co de Phone Number JOE [facility] Department [place] [address] * (ABNORMAL) RPR Titer Blood (07/03/2024 7:25 AM [employer]) [facility] RPR qn 1:32(A) Nonreactive Blood 07/03/2024 7:25 AM [employer] 07/03/2024 7:36 AM [employer] Rafa Billings MD LAB MICROBIOLOGY - GENERAL ORDERABLES Final Result Performing Organization Address [facility] Co de Phone Number JOE [facility] Department [place] [address] * (ABNORMAL) RPR Blood (07/03/2024 7:25 AM [employer]) [facility] RPR Reactive(A ) Nonreactive Blood 07/03/2024 7:25 AM [employer] 07/03/2024 7:31 AM [employer] Rafa Billings MD LAB MICROBIOLOGY - GENERAL ORDERABLES Final Result [facility] Department [place] [address] * Critical Care (07/03/2024 5:22 AM [employer]) Narrative Brendan Cortes MD - 07/03/2024 5:22 AM [employer] Brendan Cortes MD ? 07/03/2024 ??6:08 AM [...] spent time documenting in the medical record. us Brendan Cortes MD IN CLINIC/BED SIDE ORDERABLES Final Result * CTA/CTP Rapid Stroke (C) (07/03/2024 5:20 AM [employer]) Anatomical Region Laterality Modality Head and Neck N/A Computed Tomogra phy 07/03/2024 5:33 AM [employer] Impressions 07/03/2024 12:51 PM [employer] 1. No CT evidence of stroke. 2. [...] Lio Huynh MD Narrative 07/03/2024 12:51 PM [employer] EXAMINATION: 1. Computed tomography angiography (CTA) of [...] separate workstation for processing by RAPID software (eFans) to produce automated calculations of the estimated [...] Artery: no occlusion or significant stenosis L COLLAR SHAPER OPERATOR: no occlusion or significant stenosis R COLLAR SHAPER OPERATOR: no occlusion or significant stenosis No [...] separate workstation for processing by RAPID software (eFans) to produce automated calculations of the estimated [...] Artery: no occlusion or significant stenosis L COLLAR SHAPER OPERATOR: no occlusion or significant stenosis R COLLAR SHAPER OPERATOR: no occlusion or significant stenosis No [...] it. Electronically signed by: Lio Huynh MD us Brendan Cortes MD IMG CT PROCED URES Final Result * POCT lactate (07/03/2024 5:19 AM [employer]) [facility] Lactate POC i-STAT 1.5 0.7 - 2.2 mmol/L Blood 07/03/2024 5:19 AM [employer] 07/03/2024 5:19 AM [employer] Notinfile Unknown LAB POCT ORDERABLES - DEVICE F inal Result Performing Organization Address [facility] Co de Phone Number [facility] [place] [place] [address] * (ABNORMAL) POCT prothrombin time, whole blood (07/03/2024 5:17 AM [employer]) [facility] PT, POC 23.9(H) 10.6 - 13.5 sec INR, bld, POC 2.0(H) 0.9 - 1.2 [facility] Blood 07/03/2024 5:17 AM [employer] 07/03/2024 5:17 AM [employer] Notinfile Unknown LAB POCT ORDERABLES - DEVICE F inal Result Performing Organization Address [facility] Co de Phone Number [facility] [place] [address] * (ABNORMAL) POC Blood Gas and Chemistries, Arterial - (07/03/2024 5:14 AM [employer]) [facility] K POC 4.9 3.3 - 4.9 mmol/L Comment: Hemolyzed;K+ value may be falsely elevated 1.0-1.7 Interpretive Data Not all point of care methods assess for hemolysis. Confirm with instrument and retest K+ if not consistent with clinical signs and symptoms. Current Interpretive Data was last revised on 2023. Hct, POC 37.0(L) 41.4 - 51.6 % [facility] Total Hb, POC 12.2(L) 13.8 - 17.2 g/dL [facility] Blood 07/03/2024 5:14 AM [employer] 07/03/2024 5:14 AM [employer] Result [facility] Notinfile Unknown LAB POCT ORDERABLES - DEVICE F inal Result Performing Organization Address [facility] de Phone Number [facility] [place] [address] * POCT glucose (07/03/2024 5:13 AM [employer]) Pathologist [facility] Glucose, POC 129 70 - 199 mg/dL Blood 07/03/2024 5:13 AM [employer] 07/03/2024 5:13 AM [employer] Result [facility] Notinfile Unknown LAB POCT ORDERABLES - DEVICE F inal Result Performing Organization Address [facility] de Phone Number [facility] [place] [address] * Troponin I high-sensitivity series (baseline, 2hr, 4hr, 6hr) (07/03/2024 5:09 AM [employer]) Pathologist [facility] Trop I hs <4 <=35 ng/L Comment: Code Blue Specimen Interpretive Data For further hscTnI resources including the diagnostic algorithm and an aid in interpretation, copy and paste this link: https://bjhlab.testcatalog.org/show/hsTrop-[email or web address] Current Interpretive Data last revised 2020. Blood 07/03/2024 5:09 AM [employer] 07/03/2024 5:16 AM [employer] Rafa Billings MD LAB BLOOD ORDERA BLES Final Result Performing Organization Address [facility] Co de Phone Number [facility] [place] [address] * eGFR (07/03/2024 5:09 AM [employer]) eGFR 83 >=60 mL/min/1. 73 m2 Comment: [...] last reviewed 2021. Blood 07/03/2024 5:09 AM [employer] 07/03/2024 5:16 AM [employer] us Rafa Billings MD LAB BLOOD ORDERA BLES Edited Result - [facility] [place] [address] * Differential, auto (07/03/2024 5:09 AM [employer]) Neutrophil abs 3.7 1.5 - 6.5 K/cumm Imm gran abs 0.1 0.0 - 0.1 K/cumm [facility] Lymphocyte abs 0.9 0.8 - 3.3 K/cumm [facility] Monocyte abs 0.6 0.2 - 0.8 K/cumm [facility] Eosinophil abs 0.0 0.0 - 0.5 K/cumm [facility] Basophil abs 0.0 0.0 - 0.1 K/cumm [facility] Neutrophil pct 70.7 % [facility] Comment: Interpretive Data Percent cell count reference ranges are not reported, since discordance with absolute values may lead to misinterpretation of CBC data. Current Interpretive Data was last revised on 2017. Imm gran pct 0.9 % [facility] Comment: Interpretive Data Percent cell count reference ranges are not reported, since discordance with absolute values may lead to misinterpretation of CBC data. Current Interpretive Data was last revised on 2017. Lymphocyte pct 17.4 % [facility] Comment: Interpretive Data Percent cell count reference ranges are not reported, since discordance with absolute values may lead to misinterpretation of CBC data. Current Interpretive Data was last revised on 2017. Monocyte pct 10.4 % [facility] Comment: Interpretive Data Percent cell count reference ranges are not reported, since discordance with absolute values may lead to misinterpretation of CBC data. Current Interpretive Data was last revised on 2017. Eosinophil pct 0.2 % [facility] Comment: Interpretive Data Percent cell count reference ranges are not reported, since discordance with absolute values may lead to misinterpretation of CBC data. Current Interpretive Data was last revised on 2017. Basophil pct 0.4 % [facility] Comment: Interpretive Data Percent cell count reference ranges are not reported, since discordance with absolute values may lead to misinterpretation of CBC data. Current Interpretive Data was last revised on 2017. Blood 07/03/2024 5:09 AM [employer] 07/03/2024 5:17 AM [employer] us Rafa Billings MD LAB BLOOD ORDERA BLES Final Result [facility] Department [place] [address] * (ABNORMAL) CBC with auto differential (07/03/2024 5:09 AM [employer]) WBC 5.3 3.8 - 9.9 K/cumm Comment:Carri Blue Specimen Hgb 11.6(L) 13.0 - 17.5 g/dL [facility] Hct 36.8(L) 38.9 - 50.3 % [facility] Plt 183 150 - 400 K/cumm [facility] MPV 9.6 9.1 - 12.3 fL [facility] RBC 4.75 4.30 - 5.80 M/cumm [facility] MCV 77.5(L) 81.3 - 96.4 fL [facility] MCH 24.4(L) 27.1 - 33.3 pg [facility] MCHC 31.5(L) 32.3 - 35.7 g/dL [facility] RDW CV 16.7(H) 11.1 - 14.9 % [facility] RDW SD 47.2 35.7 - 48.1 fL [facility] NRBC abs 0.00 0.00 - 0.01 K/cumm [facility] Blood (Blood, Venous) 07/03/2024 5:09 AM [employer] 07/03/2024 5:17 AM [employer] Narrative [facility] - 07/03/2024 5:24 AM [employer] Potential Stroke Patient us Rafa Billings MD LAB BLOOD ORDERA BLES Final Result [facility] Department of [place] [id number] * aPTT (07/03/2024 5:09 AM [employer]) Pathologist [facility] aPTT 30 28 - 38 sec Comment: Carri Blue Specimen Interpretive Data Heparin therapeutic range: 66.0 - 100.0 seconds. Range based on correlation with therapeutic heparin activity range of 0.3 - 0.7 Units/mL. Current interpretive data was last revised on 2023. Blood (Blood, Venous) 07/03/2024 5:09 AM [employer] 07/03/2024 5:16 AM [employer] [facility] - 07/03/2024 5:31 AM [employer] Potential stroke patient. Rafa Billings MD LAB BLOOD ORDERA BLES Final Result [facility] Department [place] [address] * (ABNORMAL) Comprehensive metabolic panel (07/03/2024 5:09 AM [employer]) Sodium 137 135 - 145 mmol/L Comment:Code Blue Specimen Potassium, pl 4.7 3.3 - 4.9 mmol/L [facility] Comment: Hemolyzed; Potassium value may be falsely elevated by as much as 0.6-1.0 mmol/L. ??Suggest redraw and reanalysis. Code Blue Specimen Chloride 102 97 - 110 mmol/L [facility] Comment:Code Blue Specimen CO2 26 22 - 32 mmol/L [facility] Comment:Code Blue Specimen Anion gap 9 2 - 15 mmol/L [facility] Comment:Code Blue Specimen BUN 16 6 - 25 mg/dL [facility] Comment:Code Blue Specimen Creatinine 1.20 0.80 - 1.30 mg/dL [facility] Comment:Code Blue Specimen Glucose 133 70 - 199 mg/dL [facility] Comment: Code Blue Specimen Interpretive Data [...] 2022. Calcium 8.8 8.5 - 10.3 mg/dL [facility] Comment:Code Blue Specimen Bilirubin, total 0.3 0.1 - 1.2 mg/dL [facility] Comment:Code Blue Specimen Protein, pl 8.3 6.5 - 8.5 g/dL [facility] Comment:Code Blue Specimen Albumin 3.4(L) 3.5 - 5.0 g/dL [facility] Comment:Code Blue Specimen Alk phos 80 40 - 130 Units/L [facility] Comment:Code Blue Specimen ALT 46 7 - 55 Units/L [facility] Comment:Code Blue Specimen AST 102(H) 10 - 50 Units/L [facility] Comment: Hemolyzed; result may be falsely elevated Code Blue Specimen Blood (Blood, Venous) 07/03/2024 5:09 AM [employer] 07/03/2024 5:16 AM [employer] Narrative [facility] - 07/03/2024 5:55 AM [employer] Potential Stroke Patient Rafa Billings MD LAB BLOOD ORDERA BLES Edited Result - Final [facility] Department [place] [address] * ECG 12-LEAD (06/26/2024 2:10 PM [employer]) Narrative [facility] - 06/26/2024 2:10 PM [employer] Chas Friedman MD ? 06/26/2024 ??2:11 PM [...] Friedman MD ECG ORDERABLES Final Res ult [facility] * Influenza A/B, RSV, and COVID-19 PCR Nasopharyngeal (06/26/2024 9:53 AM [employer]) [facility] COVID-19 RNA Negative Negative [facility] Influenza A RNA Negative Negative [facility] Influenza B RNA Negative Negative [facility] RSV RNA Negative Negative [facility] Comment: Interpretive data: Testing performed by [facility] ([phone]). This test is performed using the [employer] Xpert Xpress CoV-2/Flu/RSV plus assay. This is a multiplex, real-time reverse transcriptase PCR assay intended for the qualitative detection of nucleic acid from SARS-CoV-2, influenza A, influenza B, and respiratory syncytial virus. This assay has been cleared by the [place] Food and Drug administration. The performance characteristics have been verified by the [facility]. ??Results must be considered in the clinical context, and a negative result does not rule out infection. Interpretive Data last revised 2023 Nasopharyngeal 06/26/2024 9: 53 AM [employer] 06/26/2024 10:04 AM [employer] Narrative [facility] - 06/26/2024 11:46 AM [employer] Is the Patient experiencing symptoms consistent with COVID?->Yes Chas Friedman MD LAB MICROBIOLOGY - GENERA L ORDERABLES Final Result Performing Organization Address City/[facility]/ZIP Co de Phone Number [facility] Department [place] [address] [facility] * Troponin I high-sensitivity series (baseline, 2hr, 4hr, 6hr) (06/26/2024 9:19 AM [employer]) Trop I hs 4 <=35 ng/L Comment: Interpretive Data For further [facility] resources including the diagnostic algorithm and an aid in interpretation, copy and paste this link: [email or web address] Current Interpretive Data last revised 2020. Blood 06/26/2024 9:19 AM [employer] 06/26/2024 9:52 AM [employer] us Chas Friedman MD LAB BLOOD ORDERABLES Antonina jhaveri Result JOE [facility] Department [place] [address] * eGFR (06/26/2024 9:19 AM [employer]) eGFR >90 >=60 mL/min/1. 73 m2 Comment: [...] last reviewed 2021. Blood 06/26/2024 9:19 AM [employer] 06/26/2024 9:52 AM [employer] us Chas Friedman MD LAB BLOOD ORDERABLES Antonina shakila Result [facility] Department [place] [address] * Differential, auto (06/26/2024 9:19 AM [employer]) Neutrophil abs 1.6 1.5 - 6.5 K/cumm Imm gran abs 0.0 0.0 - 0.1 K/cumm [facility] Lymphocyte abs 1.7 0.8 - 3.3 K/cumm [facility] Monocyte abs 0.4 0.2 - 0.8 K/cumm [facility] Eosinophil abs 0.1 0.0 - 0.5 K/cumm [facility] Basophil abs 0.0 0.0 - 0.1 K/cumm [facility] Neutrophil pct 42.9 % [facility] Comment: Interpretive Data Percent cell count reference ranges are not reported, since discordance with absolute values may lead to misinterpretation of CBC data. Current Interpretive Data was last revised on 2017. Imm gran pct 0.3 % [facility] Comment: Interpretive Data Percent cell count reference ranges are not reported, since discordance with absolute values may lead to misinterpretation of CBC data. Current Interpretive Data was last revised on 2017. Lymphocyte pct 45.1 % [facility] Comment: Interpretive Data Percent cell count reference ranges are not reported, since discordance with absolute values may lead to misinterpretation of CBC data. Current Interpretive Data was last revised on 2017. Monocyte pct 9.5 % [facility] Comment: Interpretive Data Percent cell count reference ranges are not reported, since discordance with absolute values may lead to misinterpretation of CBC data. Current Interpretive Data was last revised on 2017. Eosinophil pct 1.4 % [facility] Comment: Interpretive Data Percent cell count reference ranges are not reported, since discordance with absolute values may lead to misinterpretation of CBC data. Current Interpretive Data was last revised on 2017. Basophil pct 0.8 % [facility] Comment: Interpretive Data Percent cell count reference ranges are not reported, since discordance with absolute values may lead to misinterpretation of CBC data. Current Interpretive Data was last revised on 2017. Blood 06/26/2024 9:19 AM [employer] 06/26/2024 9:52 AM [employer] Chas Friedman MD LAB BLOOD ORDERABLES Antonina l Result [facility] Department [place] [address] * (ABNORMAL) CBC with auto differential (06/26/2024 9:19 AM [employer]) WBC 3.7(L) 3.8 - 9.9 K/cumm Hgb 13.5 13.0 - 17.5 g/dL [facility] Hct 43.3 38.9 - 50.3 % [facility] Plt 337 150 - 400 K/cumm [facility] MPV 9.6 9.1 - 12.3 fL [facility] RBC 5.46 4.30 - 5.80 M/cumm [facility] MCV 79.3(L) 81.3 - 96.4 fL [facility] MCH 24.7(L) 27.1 - 33.3 pg [facility] MCHC 31.2(L) 32.3 - 35.7 g/dL [facility] RDW CV 16.4(H) 11.1 - 14.9 % [facility] RDW SD 46.3 35.7 - 48.1 fL [facility] NRBC abs 0.00 0.00 - 0.01 K/cumm [facility] Blood 06/26/2024 9:19 AM [employer] 06/26/2024 9:52 AM [employer] Chas Friedman MD LAB BLOOD ORDERABLES Antonina l Result [facility] Department [place] [address] * (ABNORMAL) Comprehensive metabolic panel (06/26/2024 9:19 AM [employer]) Sodium 138 135 - 145 mmol/L Potassium, pl 4.4 3.3 - 4.9 mmol/L [facility] Chloride 101 97 - 110 mmol/L [facility] CO2 31 22 - 32 mmol/L [facility] Anion gap 6 2 - 15 mmol/L [facility] BUN 10 6 - 25 mg/dL [facility] Creatinine 0.84 0.80 - 1.30 mg/dL [facility] Glucose 84 70 - 199 mg/dL [facility] Comment: Interpretive Data Fasting glucose [...] 2022. Calcium 9.6 8.5 - 10.3 mg/dL [facility] Bilirubin, total 0.3 0.1 - 1.2 mg/dL [facility] Protein, pl 9.0(H) 6.5 - 8.5 g/dL [facility] Albumin 4.6 3.5 - 5.0 g/dL [facility] Alk phos 80 40 - 130 Units/L [facility] ALT 39 7 - 55 Units/L [facility] AST 35 10 - 50 Units/L [facility] Blood 06/26/2024 9:19 AM [employer] 06/26/2024 9:52 AM [employer] Chas Friedman MD LAB BLOOD ORDERABLES Antonina l Result [facility] Department [place] [address] * XR Chest PA Lateral 2 Views (06/26/2024 9:10 AM [employer]) Anatomical Region Laterality Modality Body, Chest N/A Computed Radiogr aphy 06/26/2024 9:22 AM [employer] Impressions 06/26/2024 9:35 AM [employer] Comparison is made to 06/02/2024 x-ray. The lungs are normal in appearance without pleural effusion or pneumothorax. The cardiomediastinal silhouette is normal. Dictated by: Segundo Araiza M.D. (Ramanan) The radiology attending physician has personally reviewed this study, and had reviewed and/or edited this written report and agrees with it. Electronically signed by: Orly Miller M.D. Narrative 06/26/2024 9:35 AM [employer] EXAMINATION: 2 view chest radiograph Procedure Note [...] it. Electronically signed by: Orly Miller M.D. us Chas Friedman MD IMG XR PROCEDURES Final R esult * Varicella Zoster Virus (VZV) PCR CSF (06/06/2024 11:53 AM [employer]) Pathologist [facility] VZV DNA Not Detected Not Detected [facility] Comment: Interpretative Data: Testing performed by [facility] ([phone]). This assay is performed using the [employer] Simplexa VZV Direct assay. This is a qualitative, real-time PCR assay for the detection of Varicella-zoster virus (VZV). This assay has been cleared by the U.S. Food and Drug Administration for performance on cerebrospinal fluid and lesion swabs. The performance characteristics have been verified by the [facility]. Results must be considered in the clinical context, and a negative result does not rule out infection. Interpretive data last revised 2021. CSF 06/06/2024 11:5 3 AM [employer] 06/07/2024 7:18 AM [employer] Rahel Miller MD LAB MICROBIOLOGY - GENERAL ORDERABLES Final Result Performing Organization Address City/[facility]/ZIP Co de Phone Number [facility]E [facility] [place] [address] [facility] * Herpes Simplex Virus (HSV) PCR CSF (06/06/2024 11:53 AM [employer]) [facility] HSV DNA Not Detected Not Detected [facility] Comment: Interpretive Data This assay is performed [...] on 11/19/2018 CSF 06/06/2024 11:5 3 AM [employer] 06/07/2024 7:18 AM [employer] Rahel Miller MD LAB MICROBIOLOGY - GENERAL ORDERABLES Final Result [facility] Department [place] [address] [facility] * Enterovirus PCR CSF (06/06/2024 11:53 AM [employer]) Enterovirus RNA, CSF Not Detected Not Detected [facility] Comment: Interpretive Data Testing performed by [facility] using the [employer]ia[employer] MDX enterovirus assay. This assay detects RNA from enterovirus using Real Time PCR. This assay is laboratory developed and is not cleared by the [place] Food and Drug Administration. The performance characteristics have been verified by the [facility]. If negative results are obtained in patients less than two years of age with symptoms and laboratory findings consistent with enterovirus, testing for parechovirus may be appropriate. Current Interpretive Data was last revised on 2023. CSF 06/06/2024 11:5 3 AM [employer] 06/06/2024 12:40 PM [employer] Rahel Miller MD LAB MICROBIOLOGY - GENERAL ORDERABLES Final Result Performing Organization Address City/[facility]/ZIP Co de Phone Number [facility] Department [place] [address] [facility] * Cell count w/reflex diff, CSF (06/06/2024 11:53 AM [employer]) Pathologist [facility] Tube Number, CSF Tube 1 Color, CSF Colorless Colorless [facility] Clarity, CSF Clear Clear [facility] Xanthochromia , CSF Absent Absent [facility] Nucleated cells, CSF 0 0 - 5 /cumm [facility] RBC, CSF 0 0 - 0 /cumm [facility] CSF 06/06/2024 11:5 3 AM [employer] 06/06/2024 12:14 PM [employer] Rahel Miller MD LAB BODY FLUIDS A ND STOOLS ORDERABLES Final Result [facility] [place] [address] * Mycology (fungal) culture and Cryptococcus antigen, CSF CSF (06/06/2024 11:53 AM [employer]) Report Final Report: No growth of fungus CSF 06/06/2024 11:5 3 AM [employer] 06/06/2024 12:19 PM [employer] Narrative [facility] - 07/04/2024 7:33 AM [employer] The Cryptococcal Antigen is resulted under a separate test. ??Please see ? Cryptococcal Antigen, CSF? for result. Testing performed by [facility] ([phone]). Rahel Miller MD LAB MICROBIOLOGY - GENERAL ORDERABLES Final Result Performing Organization Address [facility] Co de Phone Number [facility] [place] [address] * Cryptococcal antigen, CSF CSF (06/06/2024 11:53 AM [employer]) Pathologist [facility] Cryptococcal Antigen Negative Negative Comment: The cryptococcal [...] revised 2018. CSF 06/06/2024 11:5 3 AM [employer] 06/06/2024 12:19 PM [employer] Rahel Miller MD LAB MICROBIOLOGY - GENERAL ORDERABLES Final Result Performing Organization Address City/[facility] Co de Phone Number [facility] [place] [address] * VDRL, CSF CSF (06/06/2024 11:53 AM [employer]) Pathologist [facility] VDRL CSF Negative Negative [facility] Comment: Test Performed by: [facility] [address] [place] [id number] Travel Administrator: Asim Shukla Ph.D.; IA# [id number] CSF 06/06/2024 11:5 3 AM [employer] 06/06/2024 12:12 PM [employer] Rahel Miller MD LAB MICROBIOLOGY - GENERAL ORDERABLES Final Result Performing Organization Address [facility] Co de Phone Number [facility] [place] [address] [facility] * Protein, total, CSF (06/06/2024 11:53 AM [employer]) Protein, CSF 28 5 - 45 mg/dL Comment:Reviewed CSF 06/06/2024 11:5 3 AM [employer] 06/06/2024 12:14 PM [employer] Rahel Miller MD LAB BODY FLUIDS A ND STOOLS ORDERABLES Final Result Performing Organization Address [facility] de Phone Number [facility] [place] [address] * Glucose, CSF (06/06/2024 11:53 AM [employer]) Glucose, CSF 66 mg/dL Comment: Reviewed Reference Interval Information: CSF Glucose should be 60-66% of the most current plasma glucose concentration (milligrams/deciliter) CLIN. CHEM. 41/3, 343-360 (1994), Clinical Utility of Biochemical Analysis of Cerebrospinal Fluid, Larry Bone and Vince Pearson. Current interpretive data was last revised on 2019. CSF 06/06/2024 11:5 3 AM [employer] 06/06/2024 12:14 PM [employer] Rahel Miller MD LAB BODY FLUIDS A ND STOOLS ORDERABLES Final Result Performing Organization Address [facility] Co de Phone Number [facility] [place] [address] * [place] DIAGNOSTIC LUMBAR SPINAL PUNCTURE (06/06/2024 11:46 AM [employer]) Narrative Geo Palacios MD - 06/06/2024 11:46 AM [employer] Germaine Torres MD ? 06/06/2024 11:57 AM Lumbar Puncture Date/Time: 06/06/2024 11:46 AM Performed by: Michelle Graham MD Authorized by: Geo Palacios MD ?? [place] Protocol: RN Notified of Procedure: yes ?? 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 Responsible libertarian for transporting specimen(s) to lab determined: yes ?? us Geo Palacios MD IN CLINIC/BEDSIDE ORDERABL ES Final Result * CT Head WO Contrast (06/05/2024 5:52 PM [employer]) Anatomical Region Laterality Modality Head and Neck N/A Computed Tomogra phy 06/06/2024 10:4 5 AM [employer] Impressions 06/06/2024 3:08 PM [employer] 1. ??No acute intracranial hemorrhage. 2. ??Brain [...] Maame Ruiz M.D. Narrative 06/06/2024 3:08 PM [employer] EXAMINATION: CT head without contrast HISTORY: History [...] it. Electronically signed by: Maame Ruiz M.D. us Rahel Miller MD IMG CT PROCEDURES Final Result * Lactate (06/04/2024 8:39 PM [employer]) Lactate 1.8 0.7 - 2.0 mmol/L Blood 06/04/2024 8:39 PM [employer] 06/04/2024 8:51 PM [employer] Rahel Miller MD LAB BLOOD [place] [address] * Hepatitis C antibody Blood (06/04/2024 8:39 PM [employer]) [facility] Hep C Ab Nonreactive Nonreactive Comment:Antibodies to HCV no t detected. Does NOT exclude the possibility of recent exposure to HCV. Current interpretive data was last revised on 22 Blood 06/04/2024 8:39 PM [employer] 06/04/2024 8:51 PM [employer] Rahel Miller MD LAB MICRO BIOLOGY - GENERAL ORDERABLES Edited [place] [address] * (ABNORMAL) Cytomegalovirus (CMV) DNA PCR, quantitative Blood (06/04/2024 8:36 PM [employer]) [facility] CMV DNA Detected( A) [facility] Comment: Interpretive Data: The quantifiable range of this assay is 34 IUnits/mL to 10,000,000 IUnits/mL (1.53 log IUnits/mL to 7.0 log IUnits/mL). Testing was performed by the NEERU [id number] CMV Test ([employer] Testing performed at [facility]. Current interpretive data was last revised on 2021. CMV DNA IU/mL 36 IUnits/mL [facility] CMV DNA log IU/mL 1.56 log IUnits/mL [facility] Blood 06/04/2024 8:36 PM [employer] 06/04/2024 9:05 PM [employer] us Rahel Miller MD LAB MICROBIOLOGY - GENERAL ORDERABLES Final Result [facility] [place] [address] [facility] * eGFR (06/04/2024 8:36 PM [employer]) eGFR >90 >=60 mL/min/1. 73 m2 Comment: [...] last reviewed 2021. Blood 06/04/2024 8:36 PM [employer] 06/04/2024 9:17 PM [employer] us Rahel Miller MD LAB BLOOD ORDERAB LES Final Result [facility] Department of Laboratories [place], [place] [id number] * Differential, auto (06/04/2024 8:36 PM [employer]) Neutrophil abs 4.3 1.5 - 6.5 K/cumm Imm gran abs 0.0 0.0 - 0.1 K/cumm [facility] Lymphocyte abs 1.8 0.8 - 3.3 K/cumm [facility] Monocyte abs 0.4 0.2 - 0.8 K/cumm [facility] Eosinophil abs 0.0 0.0 - 0.5 K/cumm [facility] Basophil abs 0.0 0.0 - 0.1 K/cumm [facility] Neutrophil pct 65.9 % [facility] Comment: Interpretive Data Percent cell count reference ranges are not reported, since discordance with absolute values may lead to misinterpretation of CBC data. Current Interpretive Data was last revised on 2017. Imm gran pct 0.6 % [facility] Comment: Interpretive Data Percent cell count reference ranges are not reported, since discordance with absolute values may lead to misinterpretation of CBC data. Current Interpretive Data was last revised on 2017. Lymphocyte pct 27.4 % [facility] Comment: Interpretive Data Percent cell count reference ranges are not reported, since discordance with absolute values may lead to misinterpretation of CBC data. Current Interpretive Data was last revised on 2017. Monocyte pct 5.6 % [facility] Comment: Interpretive Data Percent cell count reference ranges are not reported, since discordance with absolute values may lead to misinterpretation of CBC data. Current Interpretive Data was last revised on 2017. Eosinophil pct 0.3 % [facility] Comment: Interpretive Data Percent cell count reference ranges are not reported, since discordance with absolute values may lead to misinterpretation of CBC data. Current Interpretive Data was last revised on 2017. Basophil pct 0.2 % [facility] Comment: Interpretive Data Percent cell count reference ranges are not reported, since discordance with absolute values may lead to misinterpretation of CBC data. Current Interpretive Data was last revised on 2017. Blood 06/04/2024 8:36 PM [employer] 06/04/2024 8:58 PM [employer] us Rahel Miller MD LAB BLOOD ORDERAB LES Final Result [facility] Department [place] [address] * (ABNORMAL) RPR Titer Blood (06/04/2024 8:36 PM [employer]) Pathologist [facility] RPR qn 1:32(A) Nonreactive Blood 06/04/2024 8:36 PM [employer] 06/04/2024 8:52 PM [employer] Rahel Miller MD LAB MICROBIOLOGY - GENERAL ORDERABLES Final Result Performing Organization Address [facility] Co de Phone Number [facility] [place] [address] * (ABNORMAL) CMV, IgG and IgM antibodies Blood (06/04/2024 8:36 PM [employer]) [facility] CMV IgG Positive(A) Negative Comment: Interpretive Data [...] recent CMV infection. CMV IgM Negative Negative [facility] Comment: Interpretive Data Negative - Negative [...] reactivation, or reinfection). Blood 06/04/2024 8:36 PM [employer] 06/04/2024 8:52 PM [employer] Rahel Miller MD LAB MICROBIOLOGY - GENERAL ORDERABLES Final Result Performing Organization Address [facility] Co de Phone Number [facility] Department [place] [address] * (ABNORMAL) CBC with auto differential (06/04/2024 8:36 PM [employer]) [facility] WBC 6.6 3.8 - 9.9 K/cumm Hgb 12.4(L) 13.0 - 17.5 g/dL [facility] Hct 39.1 38.9 - 50.3 % [facility] Plt 283 150 - 400 K/cumm [facility] MPV 9.8 9.1 - 12.3 fL [facility] RBC 4.90 4.30 - 5.80 M/cumm [facility] MCV 79.8(L) 81.3 - 96.4 fL [facility] MCH 25.3(L) 27.1 - 33.3 pg [facility] MCHC 31.7(L) 32.3 - 35.7 g/dL [facility] RDW CV 14.6 11.1 - 14.9 % [facility] RDW SD 42.7 35.7 - 48.1 fL [facility] NRBC abs 0.00 0.00 - 0.01 K/cumm [facility] Blood 06/04/2024 8:36 PM [employer] 06/04/2024 8:58 PM [employer] Rahel Miller MD LAB BLOOD ORDERAB LES Final Result [facility] Department [place] [address] * Cryptococcal Antigen, Serum Blood (06/04/2024 8:36 PM [employer]) [facility] Cryptococcus ag, Serum Negative Negative Comment: The [...] last revised 2018. Blood 06/04/2024 8:36 PM [employer] 06/04/2024 8:52 PM [employer] us Rahel Miller MD LAB MICROBIOLOGY - GENERAL ORDERABLES Final Result Performing Organization Address [facility] Co de Phone Number [facility] [place] [address] * Hepatitis B core antibody, total Blood (06/04/2024 8:36 PM [employer]) Hep B core IgG/IgM Nonreactive Nonreactive Blood 06/04/2024 8:36 PM [employer] 06/04/2024 8:52 PM [employer] us Rahel Miller MD LAB MICROBIOLOGY - GENERAL ORDERABLES Final Result Performing Organization Address [facility] de Phone Number [facility] [place] [address] * (ABNORMAL) RPR Blood (06/04/2024 8:36 PM [employer]) RPR Reactive(A ) Nonreactive Blood 06/04/2024 8:36 PM [employer] 06/04/2024 8:52 PM [employer] us Rahel Miller MD LAB MICROBIOLOGY - GENERAL ORDERABLES Final Result Performing Organization Address [facility] de Phone Number [facility] [place] [address] * Hepatitis B Surface Antigen Blood (06/04/2024 8:36 PM [employer]) HepBsAg Nonreactive Nonreactive Blood 06/04/2024 8:36 PM [employer] 06/04/2024 8:52 PM [employer] us Rahel Miller MD LAB MICROBIOLOGY - GENERAL ORDERABLES Final Result Performing Organization Address City/[facility]/ZIP Co de Phone Number JOE HAYWARD [facility] Department [place] [address] * Blood culture Blood (06/04/2024 8:36 PM [employer]) Report Final Report: No growth Blood 06/04/2024 8:36 PM [employer] 06/04/2024 8:50 PM [employer] Narrative JOE HAYWARD - 06/09/2024 7:00 AM [employer] From a different site than #1. Collection->Peripheral [...] organism identification may be performed using the [employer] Gram-Positive Blood Culture Assay. This assay detects microbial DNA in positive blood culture broth via hybridization of target DNA to capture oligonucleotides on a microarray. This assay has been cleared by the [place] Food and Drug Administration and its performance characteristics have been verified by the [facility] Microbiology Laboratory. 5. ?For questions about this culture, contact the Microbiology Laboratory at [phone]. Interpretive data was last revised on 2019. us Rahel Miller MD LAB MICROBIOLOGY - GENERAL ORDERABLES Final Result Performing Organization Address City/[facility]/ZIP Co de Phone Number JOE HAYWARD [facility] Department [place] [address] * (ABNORMAL) Erythrocyte sedimentation rate (06/04/2024 8:36 PM [employer]) [facility] Erythrocyte sedimentation rate 22(H) 1 - 15 mm/hr Blood 06/04/2024 8:36 PM [employer] 06/04/2024 8:58 PM [employer] us Rahel Miller MD LAB BLOOD ORDERAB LES Final Result [facility] Department [place] [address] * CRP (acute phase) (06/04/2024 8:36 PM [employer]) [facility] CRP 9.8 <=10.0 mg/L Blood 06/04/2024 8:36 PM [employer] 06/04/2024 8:46 PM [employer] us Rahel Miller MD LAB BLOOD ORDERAB LES Final Result Performing Organization Address City/[facility] Co de Phone Number [facility] [place] [address] * (ABNORMAL) Comprehensive metabolic panel (06/04/2024 8:36 PM [employer]) [facility] Sodium 136 135 - 145 mmol/L Potassium, pl 3.7 3.3 - 4.9 mmol/L [facility] Chloride 104 97 - 110 mmol/L [facility] CO2 25 22 - 32 mmol/L [facility] Anion gap 7 2 - 15 mmol/L [facility] BUN 11 6 - 25 mg/dL [facility] Creatinine 1.10 0.80 - 1.30 mg/dL [facility] Glucose 94 70 - 199 mg/dL [facility] Comment: Interpretive Data Fasting glucose [...] 2022. Calcium 8.8 8.5 - 10.3 mg/dL [facility] Bilirubin, total 0.2 0.1 - 1.2 mg/dL [facility] Protein, pl 7.5 6.5 - 8.5 g/dL [facility] Albumin 3.4(L) 3.5 - 5.0 g/dL [facility] Alk phos 73 40 - 130 Units/L [facility] ALT 16 7 - 55 Units/L [facility] AST 21 10 - 50 Units/L [facility] Blood 06/04/2024 8:36 PM [employer] 06/04/2024 8:46 PM [employer] us Rahel Miller MD LAB BLOOD ORDERAB LES Final Result [facility] [place] [address] * Lactate (06/04/2024 6:10 AM [employer]) Pathologist [facility] Lactate 2.0 0.7 - 2.0 mmol/L Blood 06/04/2024 6:10 AM [employer] 06/04/2024 6:29 AM [employer] us Olegario Gonsales MD LAB BLOOD ORDERABLES Fi nal Result Performing Organization Address City/[facility]/ZIP Co de Phone Number [facility] [place] [address] * eGFR (06/04/2024 6:10 AM [employer]) eGFR >90 >=60 mL/min/1. 73 m2 Comment: [...] last reviewed 2021. Blood 06/04/2024 6:10 AM [employer] 06/04/2024 6:37 AM [employer] us Olegario Gonsales MD LAB BLOOD ORDERABLES Fi nal Result Performing Organization Address City/State/[facility] Co de Phone Number [facility] Department [place] [address] * Differential, auto (06/04/2024 6:10 AM [employer]) Neutrophil abs 2.6 1.5 - 6.5 K/cumm Imm gran abs 0.0 0.0 - 0.1 K[facility] Lymphocyte abs 1.6 0.8 - 3.3 K/cumm [facility] Monocyte abs 0.3 0.2 - 0.8 K/cumm [facility] Eosinophil abs 0.1 0.0 - 0.5 K/cumm [facility] Basophil abs 0.0 0.0 - 0.1 K/cumm [facility] Neutrophil pct 56.0 % [facility] Comment: Interpretive Data Percent cell count reference ranges are not reported, since discordance with absolute values may lead to misinterpretation of CBC data. Current Interpretive Data was last revised on 2017. Imm gran pct 0.2 % [facility] Comment: Interpretive Data Percent cell count reference ranges are not reported, since discordance with absolute values may lead to misinterpretation of CBC data. Current Interpretive Data was last revised on 2017. Lymphocyte pct 35.4 % [facility] Comment: Interpretive Data Percent cell count reference ranges are not reported, since discordance with absolute values may lead to misinterpretation of CBC data. Current Interpretive Data was last revised on 2017. Monocyte pct 6.7 % [facility] Comment: Interpretive Data Percent cell count reference ranges are not reported, since discordance with absolute values may lead to misinterpretation of CBC data. Current Interpretive Data was last revised on 2017. Eosinophil pct 1.3 % [facility] Comment: Interpretive Data Percent cell count reference ranges are not reported, since discordance with absolute values may lead to misinterpretation of CBC data. Current Interpretive Data was last revised on 2017. Basophil pct 0.4 % [facility] Comment: Interpretive Data Percent cell count reference ranges are not reported, since discordance with absolute values may lead to misinterpretation of CBC data. Current Interpretive Data was last revised on 2017. Blood 06/04/2024 6:10 AM [employer] 06/04/2024 6:29 AM [employer] us Olegario Gonsales MD LAB BLOOD ORDERABLES Fi nal Result [facility] Department [place] [address] * (ABNORMAL) CBC with auto differential (06/04/2024 6:10 AM [employer]) WBC 4.6 3.8 - 9.9 K/cumm Hgb 12.9(L) 13.0 - 17.5 g/dL [facility] Hct 41.2 38.9 - 50.3 % [facility] Plt 292 150 - 400 K/cumm [facility] MPV 9.2 9.1 - 12.3 fL [facility] RBC 5.18 4.30 - 5.80 M/cumm [facility] MCV 79.5(L) 81.3 - 96.4 fL [facility] MCH 24.9(L) 27.1 - 33.3 pg [facility] MCHC 31.3(L) 32.3 - 35.7 g/dL [facility] RDW CV 14.9 11.1 - 14.9 % [facility] RDW SD 43.5 35.7 - 48.1 fL [facility] NRBC abs 0.00 0.00 - 0.01 K/cumm [facility] Blood 06/04/2024 6:10 AM [employer] 06/04/2024 6:29 AM [employer] Olegario Gonsales MD LAB BLOOD ORDERABLES Fi nal Result [facility] Department [place] [address] * Comprehensive metabolic panel (06/04/2024 6:10 AM [employer]) Sodium 138 135 - 145 mmol/L Potassium, pl 3.7 3.3 - 4.9 mmol/L [facility] Chloride 105 97 - 110 mmol/L [facility] CO2 24 22 - 32 mmol/L [facility] Anion gap 9 2 - 15 mmol/L [facility] BUN 8 6 - 25 mg/dL [facility] Creatinine 0.97 0.80 - 1.30 mg/dL [facility] Glucose 103 70 - 199 mg/dL [facility] Comment: Interpretive Data Fasting glucose [...] 2022. Calcium 8.7 8.5 - 10.3 mg/dL [facility] Bilirubin, total 0.2 0.1 - 1.2 mg/dL [facility] Protein, pl 7.5 6.5 - 8.5 g/dL [facility] Albumin 3.5 3.5 - 5.0 g/dL [facility] Alk phos 73 40 - 130 Units/L [facility] ALT 19 7 - 55 Units/L [facility] AST 17 10 - 50 Units/L [facility] Blood 06/04/2024 6:10 AM [employer] 06/04/2024 6:37 AM [employer] Olegario Gonsales MD LAB BLOOD ORDERABLES Fi nal Result [facility] Department [place] [address] * POCT glucose (06/03/2024 5:26 AM [employer]) Glucose, POC 77 70 - 199 mg/dL Blood 06/03/2024 5:26 AM [employer] 06/03/2024 5:26 AM [employer] Olegario Gonsales MD LAB POCT ORDERABLES - D EVICE Final Result [facility] [place] [address] * POCT ketone, blood (06/02/2024 7:46 PM [employer]) Ketones, Blood, POC 0.1 0.0 - 0.5 mmol/L Blood 06/02/2024 7:46 PM [employer] 06/02/2024 7:46 PM [employer] Olegario Gonsales MD LAB POCT ORDERABLES - D EVICE Final Result Performing Organization Address [facility] Co de Phone Number [facility] Department [place] [address] * Stool culture Stool Rectum (06/02/2024 7:17 PM [employer]) Direct Specimen Exam Shiga Toxin Testing: Antigen detection assay for Shiga-toxin NEGATIVE for Shiga Toxin 1 and Shiga Toxin 2. Report Final Report: No growth of enteric bacterial pathogens [facility] Stool (Rectum) 06/02/2024 7: 17 PM [employer] 06/02/2024 7:23 PM [employer] Narrative [facility] - 06/06/2024 8:35 AM [employer] Specimen received in a sterile container. Testing performed by [facility]biology Laboratory ([phone]). Routine stool cultures include procedures to detect Salmonella, Shigella, Edwardsiella, Aeromonas, Pleisiomonas, Campylobacter, Yersinia, E. coli O157, and Shiga-like toxins. ?? Vibrio is cultured only upon special request. ??If Vibrio is suspected, please call the laboratory at [phone]. Interpretive data was last updated November 27, 2016. Pooja Molina NP LAB MICROBIOLOGY - GENERA L ORDERABLES Final Result Performing Organization Address [facility] Co de Phone Number [facility] Department [place] [address] * (ABNORMAL) Lactate (06/02/2024 5:22 PM [employer]) Pathologist [facility] Lactate 2.8(H) 0.7 - 2.0 mmol/L Blood 06/02/2024 5:22 PM [employer] 06/02/2024 5:41 PM [employer] Pooja Teresa Tracy CONVEYOR TECHNICIAN LAB BLOOD ORDERABLES Antonina l Result Performing Organization Address [facility] Co de Phone Number [facility] [place] [address] * eGFR (06/02/2024 5:22 PM [employer]) [facility] eGFR >90 >=60 mL/min/1. 73 m2 Comment: [...] last reviewed 2021. Blood 06/02/2024 5:22 PM [employer] 06/02/2024 5:42 PM [employer] Pooja Molina CONVEYOR TECHNICIAN LAB BLOOD ORDERABLES Antonina l Result Performing Organization Address [facility] Co de Phone Number [facility] Department [place] [address] * Osmolality, blood (06/02/2024 5:22 PM [employer]) Osmo 285 275 - 300 mOsm/kg Blood 06/02/2024 5:22 PM [employer] 06/02/2024 5:42 PM [employer] us Pooja Teresa Tracy SAWANT LAB BLOOD ORDERABLES Antonina jhaveri Result [facility] Department [place] [address] * (ABNORMAL) Lipid panel (06/02/2024 5:22 PM [employer]) Cholesterol 110 30 - 199 mg/dL Comment: [...] on 2018. Triglycerides 51 <=149 mg/dL [facility] Comment: Hemolyzed; result may be falsely elevated [...] revised on 2018. HDL 33(L) >=40 mg/dL [facility] Comment: Interpretive Data Ages < or = [...] on 2018. LDL, calculated 65 <=129 mg/dL [facility] Comment: Interpretive Data Ages < or = 19 years ??Acceptable: ? <110 mg/dL ??Borderline high: ??110-129 mg/dL ??High: ?>or= 130 mg/dL Ages > or = 20 years ??Optimal: ? <100 mg/dL ??Near optimal: ?100-129 mg/dL ??Borderline high: ?? 130-159 mg/dL ??High: ?>160 mg/dL Calculated using the Navarrete LDL-C estimating equation. This equation was implemented [...] revised on 2024. Non-HDL Cholesterol 77 mg/dL [facility] Comment: Interpretive Data Ages < or [...] last revised on 2018. Chol/HDL ratio 3 [facility] Blood 06/02/2024 5:22 PM [employer] 06/02/2024 5:42 PM [employer] Olegario Gonsales MD LAB BLOOD ORDERABLES Fi nal Result [facility] Department [place] [address] * (ABNORMAL) Basic metabolic panel (06/02/2024 5:22 PM [employer]) Sodium 138 135 - 145 mmol/L Potassium, pl See Comment 3.3 - 4.9 mmol/L [facility] Comment:Credited; Hemolyzed Specimen Chloride 107 97 - 110 mmol/L [facility] CO2 24 22 - 32 mmol/L [facility] Anion gap 7 2 - 15 mmol/L [facility] BUN 11 6 - 25 mg/dL [facility] Creatinine 0.76(L) 0.80 - 1.30 mg/dL [facility] Glucose 69(L) 70 - 199 mg/dL [facility] Comment: Interpretive Data Fasting glucose [...] 2022. Calcium 8.8 8.5 - 10.3 mg/dL [facility] Blood 06/02/2024 5:22 PM [employer] 06/02/2024 5:42 PM [employer] Pooja Molina NP LAB BLOOD ORDERABLES Antonina l Result Performing Organization Address [facility] de Phone Number [facility] [place] [address] * (ABNORMAL) Blood gas, venous (06/02/2024 3:44 PM [employer]) pH, Venous 7.25(L) 7.32 - 7.43 PCO2, Venous 43 40 - 50 mmHg [facility] PO2, Venous 33 mmHg [facility] Comment: Interpretive Data No Reference Range Established Current Interpretive Data was last revised on 2017. HCO3 Venous, Calculated 20 20 - 30 mmol/L [facility] BE, venous -8 mmol/L [facility] Comment: Interpretive Data No Reference Range Established Current Interpretive Data was last revised on 2017. Blood 06/02/2024 3:44 PM [employer] 06/02/2024 3:49 PM [employer] Pooja Molina NP LAB BLOOD ORDERABLES Antonina l Result Performing Organization Address [facility] Co de Phone Number [facility] [place] [address] * POCT glucose (06/02/2024 3:25 PM [employer]) Glucose, POC 106 70 - 199 mg/dL Blood 06/02/2024 3:25 PM [employer] 06/02/2024 3:25 PM [employer] us Calvin Sainz MD LAB POCT ORDERABLES - DEVICE Final Result [facility] Department [place] [address] * ECG 12-LEAD (06/02/2024 3:03 PM [employer]) Narrative [facility] - 06/02/2024 3:03 PM [employer] Maris Kidd MD ? 06/02/2024 ??3:05 PM ECG 12 lead Date/Time: 06/02/2024 3:03 PM Performed by: Maris Kdid MD Authorized by: Maris Kidd MD ?? [...] the ED Maris Kidd MD Resident 06/02/24 0785 us Maris Kidd MD ECG ORDERABLES Final Result Performing Organization Address City/[facility]/ZIP Co de Phone Number [facility] * POCT glucose (06/02/2024 2:26 PM [employer]) Glucose, POC 73 70 - 199 mg/dL Blood 06/02/2024 2:26 PM [employer] 06/02/2024 2:26 PM [employer] Calvin Sainz MD LAB POCT ORDERABLES - DEVICE Final Result Performing Organization Address [facility] Co de Phone Number [facility] Department [place] [address] * (ABNORMAL) POCT glucose (06/02/2024 1:50 PM [employer]) Glucose, POC 56(L) 70 - 199 mg/dL Blood 06/02/2024 1:50 PM [employer] 06/02/2024 1:50 PM [employer] us Calvin Sainz MD LAB POCT ORDERABLES - DEVICE Final Result Performing Organization Address [facility] Co de Phone Number [facility] [place] [address] * (ABNORMAL) POCT glucose (06/02/2024 1:13 PM [employer]) Glucose, POC 45(C) 70 - 199 mg/dL Comment:Glu2: Glucose comment 1 Glu2: [facility] Blood 06/02/2024 1:13 PM [employer] 06/02/2024 1:13 PM [employer] Jaci Menon MD LAB POCT ORDERABLES - DEVIC E Final Result Performing Organization Address [facility] Co de Phone Number [facility] [place] [address] * (ABNORMAL) Lactate (06/02/2024 12:29 PM [employer]) Lactate 2.6(H) 0.7 - 2.0 mmol/L Blood 06/02/2024 12:2 9 PM [employer] 06/02/2024 1:00 PM [employer] Result [facility] Maris Kidd MD LAB BLOOD ORDERABLES Final Re sult Performing Organization Address [facility] de Phone Number [facility] [place] [address] * (ABNORMAL) Blood gas, venous (06/02/2024 12:29 PM [employer]) pH, Venous 7.25(L) 7.32 - 7.43 PCO2, Venous 58(H) 40 - 50 mmHg [facility] PO2, Venous 31 mmHg [facility] Comment: Interpretive Data No Reference Range Established Current Interpretive Data was last revised on 2017. HCO3 Venous, Calculated 26 20 - 30 mmol/L [facility] BE, venous -3 mmol/L [facility] Comment: Interpretive Data No Reference Range Established Current Interpretive Data was last revised on 2017. Blood 06/02/2024 12:2 9 PM [employer] 06/02/2024 12:44 PM [employer] Maris Kidd MD LAB BLOOD ORDERABLES Final Re sult Performing Organization Address [facility] Co de Phone Number [facility] Department [place] [address] * Troponin I high-sensitivity 2-hour (06/02/2024 11:13 AM [employer]) Trop I hs <4 <=35 ng/L Comment: Interpretive Data For further hscTnI resources including the diagnostic algorithm and an aid in interpretation, copy and paste this link: https://bjhlab.testcatalog.org/show/[email or web address] Current Interpretive Data last revised 2020. Trop I hs delta 0 ng/L [facility] Trop I hs interp Insignificant [facility] Blood 06/02/2024 11:1 3 AM [employer] 06/02/2024 11:37 AM [employer] Calvin Sainz MD LAB BLOOD ORDERABLES F inal Result [facility] One [facility] [place] [address] * (ABNORMAL) Urinalysis reflex to microscopic and culture Urine (06/02/2024 10:28 AM [employer]) Color, ur Straw Yellow Clarity, ur Clear Clear [facility] Specific gravity, ur 1.037(H) 1.003 - 1.030 [facility] pH, urine 6.0 [facility] Comment: Interpretive Data ? Urine pH is affected by diet, medications, systemic acid-base disturbances, and renal tubular function. ??pH may affect urinary stone formation. ??For example, urine pH below 6.0 may help reduce the tendency for calcium phosphate stones and pH greater than 6.0 may reduce the tendency for uric acid stone formation. Source: [facility] [employer] Current Interpretive Data was last revised on 2017 Protein, ur ql 1+(A) Negative [facility] Glucose, ur ql Negative Negative [facility] Ketones, ur Negative Negative [facility] Bilirubin, ur Negative Negative [facility] Blood, ur Negative Negative [facility] Urobilinogen, ur <2.0 <2.0 mg/dL [facility] Nitrite, ur Negative Negative [facility] Leukocyte esterase, ur Negative Negative [facility] UA reflex comment Reflex to microscopic UA will be performed. [facility] Urine 06/02/2024 10:2 8 AM [employer] 06/02/2024 10:32 AM [employer] Calvin Sainz MD LAB MICROBIOLOGY - GEN ERAL ORDERABLES Final Result [facility] Department [place] [address] * (ABNORMAL) Drugs of Abuse Screen, Urine without Confirmation (06/02/2024 10:28 AM [employer]) Amphetamine, ur Screen Positive, presumptive (A) CutOff 500ng/mL Comment: Interpretive Data - Amphetamines: ??Samples containing greater than 500 ng/mL d-methamphetamine ??or other cross-reacting amphetamine compounds are reported as positive. ??Amphetamine immunoassays are subject to significant false positive rates due to cross-reactivity of non-amphetamine drugs. Confirmatory testing required for definitive results. Current Interpretive Data was last reviewed 2023. Barbiturates, ur Not Detected CutOff 200ng/mL [facility] Comment: Interpretive Data - Barbiturates: ??Samples containing greater than 200 ng/mL secobarbital or other cross-reacting barbiturate compounds are reported as positive. ??False positive and false negative results are possible. Confirmatory testing required for definitive results. Current Interpretive Data was last reviewed 2023. Benzodiazepines, ur Not Detected CutOff 100ng/mL [facility] Comment: Interpretive Data - Benzodiazepines: ??Samples containing greater than 100 ng/mL nordiazepam or other cross-reacting compounds are reported as positive. False positive and false negative results are possible. Confirmatory testing required for definitive results. Current Interpretive Data was last reviewed 2023. Cannabinoids, ur Not Detected CutOff 50 ng/mL [facility] Comment: Interpretive Data - Cannabinoids: ??Samples containing greater than 50 ng/mL delta-9 THC -COOH or other cross-reacting compounds are reported as positive. ??False positive and false negative results are possible. ??Confirmatory testing required for definitive results. Current Interpretive Data was last reviewed 2023. Cocaine, ur Screen Positive, presumptive (A) CutOff 150ng/mL [facility] Comment: Interpretive Data - Cocaine: ??Samples containing greater than 150 ng/mL benzoylecgonine or other cross-reacting compounds are reported as positive. False positive and false negative results are possible. Confirmatory testing required for definitive results. Current Interpretive Data was last reviewed 2023. Fentanyl, Ur Not Detected CutOff 5 ng/mL [facility] Comment: Interpretive Data - Fentanyl: ?? Samples containing greater than 5 ng/mL norfentanyl, fentanyl, or other cross-reacting fentanyl compounds are reported as positive. False positive and false negative results are possible. Confirmatory testing required for definitive results. Current Interpretive Data was last reviewed 2023. Methadone, ur Not Detected CutOff 300ng/mL [facility] Comment: Interpretive Data - Methadone: ??Samples containing greater than 300 ng/mL d,l-methadone or other cross-reacting compounds are reported as positive. ??False positive and false negative results are possible. Confirmatory testing required for definitive results. Current Interpretive Data was last reviewed 2023. Opiates, ur Not Detected CutOff 300ng/mL [facility] Comment: Interpretive Data - Opiates: ??Samples containing greater than 300 ng/mL morphine or other cross-reacting compounds are reported as positive. ??False positive and false negative results are possible. Confirmatory testing required for definitive results. Current Interpretive Data was last reviewed 2023. Oxycodone, ur Not Detected CutOff 100ng/mL [facility] Comment: Interpretive Data - Oxycodone: ??Samples containing greater than 100 ng/mL oxycodone or other cross-reacting compounds are reported as ??positive. ??False positive and false negative results are possible. Confirmatory testing required for definitive results. Current Interpretive Data was last reviewed 2023. Phencyclidine, ur Not Detected CutOff 25 ng/mL [facility] Comment: Interpretive Data - Phencyclidine: ??Samples containing greater than 25 ng/mL phencyclidine or other cross-reacting compounds are reported as positive. ??False positive and false negative results are possible. Confirmatory testing required for definitive results. Current Interpretive Data was last reviewed 2023. Urine Creatinine 243 mg/dL [facility] Comment: Interpretive Data Urine Creatinine: < 10 mg/dL is extremely dilute = or > 10 but < 20 mg/dL is dilute = or > 20 mg/dL is normal Current Interpretive Data was last revised on 2017. Urine 06/02/2024 10:2 8 AM [employer] 06/02/2024 10:35 AM [employer] Narrative [facility] - 06/02/2024 11:10 AM [employer] Drug of Abuse screening is performed by immunoassay for medical purposes only. ??This is not to be used for Pain Management purposes. Calvin Sainz MD LAB URINE ORDERABLES F inal Result Performing Organization Address [facility] Co de Phone Number [facility] Department [place] [address] * (ABNORMAL) Urinalysis, microscopic only (06/02/2024 10:28 AM [employer]) WBC, ur 0-5 0 - 5 /HPF RBC, ur 0-2 0 - 2 /HPF [facility] Epithelial cells, squamous, ur 1-5 0 - 5 /HPF [facility] Bacteria, ur Trace(A) [facility] Mucous, ur Present(A) [facility] Hyaline casts, ur 1-5 0 - 10 /LPF [facility] Culture Reflex Comment Reflex conditions for urine culture (WBC >10) not met. [facility] Urine 06/02/2024 10:2 8 AM [employer] 06/02/2024 10:32 AM [employer] Calvin Sainz MD LAB URINE ORDERABLES F inal Result Performing Organization Address [facility] Co de Phone Number [facility] Department [place] [address] * XR Chest 1 Vw Portable (06/02/2024 10:22 AM [employer]) Anatomical Region Laterality Modality Body, Chest N/A Computed Radiogr aphy 06/02/2024 10:3 7 AM [employer] Impressions 06/02/2024 10:37 AM [employer] Comparison is made to prior study of 04/28/2024. In the interval, no change. The lungs are clear. Specifically, no pulmonary edema or pneumonia. No pleural effusion or pneumothorax. Heart size and mediastinal contour are normal. Electronically signed by: Tanner Lees M.D. Narrative 06/02/2024 10:37 AM [employer] EXAMINATION: 1 view chest radiograph Procedure Note Tanner Lees MD - 06/02/2024 EXAMINATION: 1 view chest radiograph IMPRESSION: Comparison is made to prior study of 04/28/2024. In the interval, no change. The lungs are clear. Specifically, no pulmonary edema or pneumonia. No pleural effusion or pneumothorax. Heart size and mediastinal contour are normal. Electronically signed by: Tanner Lees M.D. Calvin Sainz MD IMG XR PROCEDURES Antonina l Result * ECG 12-LEAD (06/02/2024 9:37 AM [employer]) Narrative [facility] - 06/02/2024 9:37 AM [employer] Calvin Sainz MD ? 06/02/2024 ??9:37 AM [...] ECG ORDERABLES Final Result Performing Organization Address City/[facility] Co de Phone Number [facility] * Troponin I high-sensitivity series (baseline, 2hr, 4hr, 6hr) (06/02/2024 9:35 AM [employer]) Trop I hs <4 <=35 ng/L Comment: Interpretive Data For further hscTnI resources including the diagnostic algorithm and an aid in interpretation, copy and paste this link: https://bjhlab.testcatalog.org/show/[email or web address] Current Interpretive Data last revised 2020. Blood 06/02/2024 9:35 AM [employer] 06/02/2024 9:53 AM [employer] Calvin Sainz MD LAB BLOOD ORDERABLES F inal Result Performing Organization Address City/[facility] Co de Phone Number [facility] Department [place] [address] * (ABNORMAL) Sepsis Lactate w/ Reflex (06/02/2024 9:35 AM [employer]) Sepsis Lactate 2.3(H) 0.7 - 2.0 mmol/L Blood 06/02/2024 9:35 AM [employer] 06/02/2024 9:43 AM [employer] us Calvin Sainz MD LAB BLOOD ORDERABLES F inal Result [facility] Department [place] [address] * eGFR (06/02/2024 9:35 AM [employer]) eGFR >90 >=60 mL/min/1. 73 m2 Comment: [...] last reviewed 2021. Blood 06/02/2024 9:35 AM [employer] 06/02/2024 9:53 AM [employer] Calvin Sainz MD LAB BLOOD ORDERABLES F inal Result [facility] [place] [address] * Thyroid Function Phillips (06/02/2024 9:35 AM [employer]) [facility] TSH 2.22 0.30 - 4.20 mcIUnit/mL Blood 06/02/2024 9:35 AM [employer] 06/02/2024 9:53 AM [employer] Calvin Sainz MD LAB BLOOD ORDERABLES F inal Result Performing Organization Address [facility] Co de Phone Number [facility] [place] [address] * (ABNORMAL) CBC with auto differential (06/02/2024 9:35 AM [employer]) [facility] WBC 3.9 3.8 - 9.9 K/cumm Hgb 14.7 13.0 - 17.5 g/dL [facility] Hct 47.6 38.9 - 50.3 % [facility] Plt 316 150 - 400 K/cumm [facility] MPV 9.3 9.1 - 12.3 fL [facility] RBC 5.85(H) 4.30 - 5.80 M/cumm [facility] MCV 81.4 81.3 - 96.4 fL [facility] MCH 25.1(L) 27.1 - 33.3 pg [facility] MCHC 30.9(L) 32.3 - 35.7 g/dL [facility] RDW CV 14.7 11.1 - 14.9 % [facility] RDW SD 43.7 35.7 - 48.1 fL [facility] NRBC abs 0.00 0.00 - 0.01 K/cumm [facility] Blood 06/02/2024 9:35 AM [employer] 06/02/2024 9:53 AM [employer] Calvin Sainz MD LAB BLOOD ORDERABLES F inal Result Performing Organization Address City/State/[facility] Co de Phone Number [facility] Department [place] [address] * Manual Differential (06/02/2024 9:35 AM [employer]) Differential Manual Cells Counted [address] [facility] Neutrophil abs 1.8 1.5 - 6.5 K/cumm [facility] Imm gran abs 0.0 0.0 - 0.1 K/cumm [facility] Lymphocyte abs 1.7 0.8 - 3.3 K/cumm [facility] Monocyte abs 0.2 0.2 - 0.8 K/cumm [facility] Eosinophil abs 0.1 0.0 - 0.5 K/cumm [facility] Neutrophil pct 47.0 % [facility] Comment: Interpretive Data Percent cell count reference ranges are not reported, since discordance with absolute values may lead to misinterpretation of CBC data. Current Interpretive Data was last revised on 2017. Lymphocyte pct 36.5 % [facility] Comment: Interpretive Data Percent cell count reference ranges are not reported, since discordance with absolute values may lead to misinterpretation of CBC data. Current Interpretive Data was last revised on 2017. Monocyte pct 5.2 % [facility] Comment: Interpretive Data Percent cell count reference ranges are not reported, since discordance with absolute values may lead to misinterpretation of CBC data. Current Interpretive Data was last revised on 2017. Eosinophil pct 3.5 % [facility] Comment: Interpretive Data Percent cell count reference ranges are not reported, since discordance with absolute values may lead to misinterpretation of CBC data. Current Interpretive Data was last revised on 2017. Variant lymph pct 7.8 % [facility] Blood 06/02/2024 9:35 AM [employer] 06/02/2024 9:56 AM [employer] Calvin Sainz MD LAB BLOOD ORDERABLES F inal Result Performing Organization Address City/State/[facility] de Phone Number [facility] [place] [address] * (ABNORMAL) T-helper cells (CD4) count (06/02/2024 9:35 AM [employer]) Pathologist [facility] CD4 pct 10(L) 31 - 64 % CD4 Absolute 169(L) 365 - 1,294 cells/mcL [facility] Blood 06/02/2024 9:35 AM [employer] 06/02/2024 9:56 AM [employer] Calvin Sainz MD LAB BLOOD ORDERABLES F inal Result Performing Organization Address [facility] [place] [address] * aPTT (06/02/2024 9:35 AM [employer]) [facility] aPTT 34 28 - 38 sec Comment: Interpretive Data Heparin therapeutic range: 66.0 - 100.0 seconds. Range based on correlation with therapeutic heparin activity range of 0.3 - 0.7 Units/mL. Current interpretive data was last revised on 2023. Blood 06/02/2024 9:35 AM [employer] 06/02/2024 9:54 AM [employer] Calvin Sainz MD LAB BLOOD ORDERABLES F inal Result Performing Organization Address [facility] de Phone Number [facility] [place] [address] * Protime-INR (06/02/2024 9:35 AM [employer]) Pathologist [facility] PT 11.2 9.7 - 13.0 sec INR 1.04 0.90 - 1.20 [facility] Comment: Interpretive data Oral anticoagulant therapeutic ranges: Venous thromboembolism prophylaxis or treatment: 2.0-3.0 CARDIOLOGY Standard range: 2.0-3.0 High-intensity range: 2.5-3.5 Refer to indication-specific guidelines for appropriate target ranges for prosthetic heart valve replacement. Current interpretive data was last revised on 2019. Blood 06/02/2024 9:35 AM [employer] 06/02/2024 9:54 AM [employer] Calvin Sainz MD LAB BLOOD ORDERABLES F inal Result Performing Organization Address [facility] Co de Phone Number [facility] Department [place] [address] * (ABNORMAL) Blood gas, venous (06/02/2024 9:35 AM [employer]) pH, Venous 7.22(L) 7.32 - 7.43 PCO2, Venous 61(H) 40 - 50 mmHg [facility] PO2, Venous 35 mmHg [facility] Comment: Interpretive Data No Reference Range Established Current Interpretive Data was last revised on 2017. HCO3 Venous, Calculated 26 20 - 30 mmol/L [facility] BE, venous -5 mmol/L [facility] Comment: Interpretive Data No Reference Range Established Current Interpretive Data was last revised on 2017. Blood 06/02/2024 9:35 AM [employer] 06/02/2024 9:43 AM [employer] us Calvin Sainz MD LAB BLOOD ORDERABLES F inal Result Performing Organization Address [facility] Co de Phone Number [facility] Department [place] [address] * (ABNORMAL) Creatine kinase (CK), total (06/02/2024 9:35 AM [employer]) CK 361(H) 40 - 300 Units/L Blood 06/02/2024 9:35 AM [employer] 06/02/2024 9:53 AM [employer] Jaci Menon MD LAB BLOOD ORDERABLES Final Result Performing Organization Address City/[facility] Co de Phone Number [facility] [place] [address] * Ethanol (06/02/2024 9:35 AM [employer]) Ethanol <10 <=10 mg/dL Comment: Interpretive Data Legal limit of intoxication > or = 80 mg/dL Levels > or = 400 mg/dL are potentially TOXIC. Current interpretive data was last revised on 2018. Blood 06/02/2024 9:35 AM [employer] 06/02/2024 9:53 AM [employer] Calvin Sainz MD LAB BLOOD ORDERABLES F inal Result Performing Organization Address [facility] [place] [address] * Acetaminophen level (06/02/2024 9:35 AM [employer]) Acetaminophen <5 <=5 mcg/mL Comment: Interpretive Data Significant hepatic injury may occur and treatment with n-acetyl cysteine is generally recommended if the acetaminophen level exceeds: 150 mcg/mL at 4 hours after ingestion ??75 mcg/mL at 8 hours after ingestion ??38 mcg/mL at 12 hours after ingestion ??19 mcg/mL at 16 hours after ingestion Consult toxicology or poison control ([phone]) for unknown ingestion time. Current interpretive data was last revised 2023. Blood 06/02/2024 9:35 AM [employer] 06/02/2024 9:53 AM [employer] Calvin Sainz MD LAB BLOOD ORDERABLES F inal Result Performing Organization Address [facility] [place] [address] * Salicylate level (06/02/2024 9:35 AM [employer]) Salicylate <9.0 <=9.0 mg/dL Comment: Interpretive Data Toxic: 30 mg/dL or greater. Current interpretive data was last revised 2023. Blood 06/02/2024 9:35 AM [employer] 06/02/2024 9:53 AM [employer] Calvin Sainz MD LAB BLOOD ORDERABLES F inal Result Performing Organization Address [facility] de Phone Number [facility] [place] [address] * (ABNORMAL) Hepatic function panel (06/02/2024 9:35 AM [employer]) Bilirubin, total 0.2 0.1 - 1.2 mg/dL Bilirubin, direct <0.2 0.1 - 0.3 mg/dL [facility] Protein, pl 9.2(H) 6.5 - 8.5 g/dL [facility] Albumin 4.2 3.5 - 5.0 g/dL [facility] Alk phos 92 40 - 130 Units/L [facility] ALT 24 7 - 55 Units/L [facility] AST 43 10 - 50 Units/L [facility] Comment:Hemolyzed; result ma y be falsely elevated Blood 06/02/2024 9:35 AM [employer] 06/02/2024 9:53 AM [employer] Calvin Sainz MD LAB BLOOD ORDERABLES F inal Result Performing Organization Address [facility] de Phone Number [facility] [place] [address] * (ABNORMAL) Basic metabolic panel (06/02/2024 9:35 AM [employer]) Pathologist [facility] Sodium 139 135 - 145 mmol/L Potassium, pl 4.1 3.3 - 4.9 mmol/L [facility] Comment:Hemolyzed; Potassium value may be falsely elevated by as much as 0.3-0.5 mmol/L. Suggest redraw and reanalysis. Chloride 108 97 - 110 mmol/L [facility] CO2 24 22 - 32 mmol/L [facility] Anion gap 7 2 - 15 mmol/L [facility] BUN 14 6 - 25 mg/dL [facility] Creatinine 0.84 0.80 - 1.30 mg/dL [facility] Glucose 57(L) 70 - 199 mg/dL [facility] Comment: Interpretive Data Fasting glucose [...] 2022. Calcium 9.4 8.5 - 10.3 mg/dL [facility] Blood 06/02/2024 9:35 AM [employer] 06/02/2024 9:53 AM [employer] Calvin Sainz MD LAB BLOOD ORDERABLES F inal Result [facility] Department [place] [address] * [place] CRITICAL CARE ILL/INJURED PATIENT INIT 30-74 MIN (06/02/2024 9:28 AM [employer]) Narrative Calvin Sainz MD - 06/02/2024 9:28 AM [employer] Calvin Sainz MD ? 06/02/2024 12:03 PM [...] medical record. Calvin Sainz MD IN CLINIC/BEDSIDE AMANDA MELENDREZ Final Result * POCT glucose (05/10/2024 10:12 AM CDT) Glucose, POC 87 70 - 199 mg/dL Blood 05/10/2024 10:1 2 AM CDT 05/10/2024 10:12 AM CDT Benny Newell MD LAB POCT ORDERABLES - DE VICE Final Result Performing Organization Address [facility] Co de Phone Number [facility] [place] [address] * (ABNORMAL) POCT glucose (05/10/2024 9:24 AM CDT) Glucose, POC 55(L) 70 - 199 mg/dL Blood 05/10/2024 9:24 AM CDT 05/10/2024 9:24 AM CDT Benny Newell MD LAB POCT ORDERABLES - DE VICE Final Result Performing Organization Address [facility] Co de Phone Number JOE [facility] [place] [address] * XR Ankle Left 3 or More [...] trachomatis Amplification Urine (05/10/2024 7:13 AM CDT) C. trachomatis Not Detected Not Detected [facility] N. gonorrhoeae Not Detected Not Detected JOE [facility] Comment: Interpretive Data This assay detects Chlamydia trachomatis and Neisseria gonorrhoeae by nucleic acid amplification testing (NAAT). This assay has been cleared by the [place] Food and Drug administration. The performance characteristics of this test have been verified by the [facility] Molecular Infectious Disease laboratory. The performance characteristics of this test have not been evaluated in individuals less than 14 years of age. Current Interpretive Data last revised 2023. Urine (None) 05/10/2024 7:13 AM CDT 05/10/2024 7:38 AM CDT Benny Newell MD LAB MICROBIOLOGY - GENER AL ORDERABLES Final Result Performing Organization Address [facility] [place] [address] [facility] * Trichomonas vaginalis PCR Urine (05/10/2024 7:13 AM CDT) Pathologist [facility] Trichomonas DNA Not Detected Not Detected [facility] Comment: Interpretive Data This assay detects Trichomonas vaginalis by nucleic acid amplification testing (NAAT). This assay has been cleared by the [place] Food and Drug administration. The performance characteristics of this test have been verified by the [facility] Molecular Infectious Disease laboratory. Excess blood in specimens may be inhibitory and result in false negative results. ??The performance of this test has not been evaluated in women or individuals less than 18 years of age. Current Interpretive Data last revised 2023. Urine 05/10/2024 7:13 AM CDT 05/10/2024 7:38 AM CDT [facility] LAB MICROBIOLOGY - GENER AL ORDERABLES Final Result Performing Organization Address [facility] [place] [address] [facility] * (ABNORMAL) T-helper cells (CD4) count (05/10/2024 7:13 AM CDT) Pathologist [facility] CD4 pct 14(L) 31 - 64 % CD4 Absolute 149(L) 365 - 1,294 cells/mcL [facility] Blood 05/10/2024 7:13 AM CDT 05/10/2024 7:25 AM CDT Benny Newell MD LAB BLOOD ORDERABLES Fin al Result Performing Organization Address [facility] [place] [address] * eGFR (05/10/2024 7:10 AM CDT) eGFR >90 >=60 mL/min/1. 73 m2 Comment: [...] MD LAB BLOOD ORDERABLES Final Resul t [facility] Department [place] [address] * Differential, auto (05/10/2024 7:10 AM CDT) Neutrophil abs 2.2 1.5 - 6.5 K/cumm Imm gran abs 0.0 0.0 - 0.1 K/cumm [facility] Lymphocyte abs 1.7 0.8 - 3.3 K/cumm [facility] Monocyte abs 0.4 0.2 - 0.8 K/cumm [facility] Eosinophil abs 0.1 0.0 - 0.5 K/cumm [facility] Basophil abs 0.0 0.0 - 0.1 K/cumm [facility] Neutrophil pct 49.4 % [facility] Comment: Interpretive Data Percent cell count reference ranges are not reported, since discordance with absolute values may lead to misinterpretation of CBC data. Current Interpretive Data was last revised on 2017. Imm gran pct 0.5 % [facility] Comment: Interpretive Data Percent cell count reference ranges are not reported, since discordance with absolute values may lead to misinterpretation of CBC data. Current Interpretive Data was last revised on 2017. Lymphocyte pct 37.8 % [facility] Comment: Interpretive Data Percent cell count reference ranges are not reported, since discordance with absolute values may lead to misinterpretation of CBC data. Current Interpretive Data was last revised on 2017. Monocyte pct 9.8 % [facility] Comment: Interpretive Data Percent cell count reference ranges are not reported, since discordance with absolute values may lead to misinterpretation of CBC data. Current Interpretive Data was last revised on 2017. Eosinophil pct 1.6 % [facility] Comment: Interpretive Data Percent cell count reference ranges are not reported, since discordance with absolute values may lead to misinterpretation of CBC data. Current Interpretive Data was last revised on 2017. Basophil pct 0.9 % [facility] Comment: Interpretive Data Percent cell count reference ranges are not reported, since discordance with absolute values may lead to misinterpretation of CBC data. Current Interpretive Data was last revised on 2017. Blood 05/10/2024 7:10 AM CDT 05/10/2024 7:25 AM CDT us Harley Subramanian MD LAB BLOOD ORDERABLES Final Resul t [facility] Department [place] [address] * Critical Result Callback Chemistry (05/10/2024 7:10 AM CDT) Date Notified [id number] Time Notified [facility]05 [facility] TestName glucose JOE HAYWARD Called/Read Back Ally Bunfill [facility] Credentials RN JOE HAYWARD Called By MPW [facility] Blood 05/10/2024 7:10 AM CDT 05/10/2024 7:46 AM CDT Harley Subramanian MD LAB BLOOD ORDERABLES Final Resul t [facility] Department [place] [address] * Thyroid Function Phillips (05/10/2024 7:10 AM CDT) Pathologist [facility] TSH 2.03 0.30 - 4.20 mcIUnit/mL Blood 05/10/2024 7:10 AM CDT 05/10/2024 7:25 AM CDT Benny Newell MD LAB BLOOD ORDERABLES Fin al Result Performing Organization Address City/[facility] Co de Phone Number [facility] Department [place] [address] * (ABNORMAL) Urinalysis reflex to microscopic (05/10/2024 7:10 AM CDT) Color, ur Yellow Yellow Clarity, ur Clear Clear [facility] Specific gravity, ur 1.032(H) 1.003 - 1.030 [facility] pH, urine 6.5 [facility] Comment: Interpretive Data ? Urine pH is affected by diet, medications, systemic acid-base disturbances, and renal tubular function. ??pH may affect urinary stone formation. ??For example, urine pH below 6.0 may help reduce the tendency for calcium phosphate stones and pH greater than 6.0 may reduce the tendency for uric acid stone formation. Source: Home-Account Current Interpretive Data was last revised on 2017 Protein, ur ql 2+(A) Negative [facility] Glucose, ur ql Negative Negative [facility] Ketones, ur Negative Negative [facility] Bilirubin, ur Negative Negative [facility] Blood, ur Negative Negative [facility] Urobilinogen, ur 4.0(A) <2.0 mg/dL [facility] Nitrite, ur Negative Negative [facility] Leukocyte esterase, ur Negative Negative [facility] UA reflex comment Reflex to microscopic UA will be performed. [facility] Urine 05/10/2024 7:10 AM CDT 05/10/2024 7:25 AM CDT [facility] Michel Newell MD LAB URINE ORDERABLES Fin al Result [facility] Department [place] [address] * (ABNORMAL) CBC with auto differential (05/10/2024 7:10 AM CDT) WBC 4.4 3.8 - 9.9 K/cumm Hgb 14.0 13.0 - 17.5 g/dL [facility] Hct 44.1 38.9 - 50.3 % [facility] Plt 616(H) 150 - 400 K/cumm [facility] MPV 8.9(L) 9.1 - 12.3 fL [facility] RBC 5.44 4.30 - 5.80 M/cumm [facility] MCV 81.1(L) 81.3 - 96.4 fL [facility] MCH 25.7(L) 27.1 - 33.3 pg [facility] MCHC 31.7(L) 32.3 - 35.7 g/dL [facility] RDW CV 15.2(H) 11.1 - 14.9 % [facility] RDW SD 44.6 35.7 - 48.1 fL [facility] NRBC abs 0.00 0.00 - 0.01 K/cumm [facility] Blood (Blood, Venous) 05/10/2024 7:10 AM CDT 05/10/2024 7:25 AM CDT Benny Newell MD LAB BLOOD ORDERABLES Fin al Result [facility] Department [place] [address] * (ABNORMAL) Drugs of Abuse Screen, Urine without Confirmation (05/10/2024 7:10 AM CDT) Pathologist [facility] Amphetamine, ur Screen Positive, presumptive (A) CutOff 500ng/mL Comment: Interpretive Data - Amphetamines: ??Samples containing greater than 500 ng/mL d-methamphetamine ??or other cross-reacting amphetamine compounds are reported as positive. ??Amphetamine immunoassays are subject to significant false positive rates due to cross-reactivity of non-amphetamine drugs. Confirmatory testing required for definitive results. Current Interpretive Data was last reviewed 2023. Barbiturates, ur Not Detected CutOff 200ng/mL [facility] Comment: Interpretive Data - Barbiturates: ??Samples containing greater than 200 ng/mL secobarbital or other cross-reacting barbiturate compounds are reported as positive. ??False positive and false negative results are possible. Confirmatory testing required for definitive results. Current Interpretive Data was last reviewed 2023. Benzodiazepines, ur Screen Positive, presumptive (A) CutOff 100ng/mL [facility] Comment: Interpretive Data - Benzodiazepines: ??Samples containing greater than 100 ng/mL nordiazepam or other cross-reacting compounds are reported as positive. False positive and false negative results are possible. Confirmatory testing required for definitive results. Current Interpretive Data was last reviewed 2023. Cannabinoids, ur Not Detected CutOff 50 ng/mL [facility] Comment: Interpretive Data - Cannabinoids: ??Samples containing greater than 50 ng/mL delta-9 THC -COOH or other cross-reacting compounds are reported as positive. ??False positive and false negative results are possible. ??Confirmatory testing required for definitive results. Current Interpretive Data was last reviewed 2023. Cocaine, ur Not Detected CutOff 150ng/mL [facility] Comment: Interpretive Data - Cocaine: ??Samples containing greater than 150 ng/mL benzoylecgonine or other cross-reacting compounds are reported as positive. False positive and false negative results are possible. Confirmatory testing required for definitive results. Current Interpretive Data was last reviewed 2023. Fentanyl, Ur Not Detected CutOff 5 ng/mL [facility] Comment: Interpretive Data - Fentanyl: ?? Samples containing greater than 5 ng/mL norfentanyl, fentanyl, or other cross-reacting fentanyl compounds are reported as positive. False positive and false negative results are possible. Confirmatory testing required for definitive results. Current Interpretive Data was last reviewed 2023. Methadone, ur Not Detected CutOff 300ng/mL [facility] Comment: Interpretive Data - Methadone: ??Samples containing greater than 300 ng/mL d,l-methadone or other cross-reacting compounds are reported as positive. ??False positive and false negative results are possible. Confirmatory testing required for definitive results. Current Interpretive Data was last reviewed 2023. Opiates, ur Screen Positive, presumptive (A) CutOff 300ng/mL [facility] Comment: Interpretive Data - Opiates: ??Samples containing greater than 300 ng/mL morphine or other cross-reacting compounds are reported as positive. ??False positive and false negative results are possible. Confirmatory testing required for definitive results. Current Interpretive Data was last reviewed 2023. Oxycodone, ur Not Detected CutOff 100ng/mL [facility] Comment: Interpretive Data - Oxycodone: ??Samples containing greater than 100 ng/mL oxycodone or other cross-reacting compounds are reported as ??positive. ??False positive and false negative results are possible. Confirmatory testing required for definitive results. Current Interpretive Data was last reviewed 2023. Phencyclidine, ur Not Detected CutOff 25 ng/mL [facility] Comment: Interpretive Data - Phencyclidine: ??Samples containing greater than 25 ng/mL phencyclidine or other cross-reacting compounds are reported as positive. ??False positive and false negative results are possible. Confirmatory testing required for definitive results. Current Interpretive Data was last reviewed 2023. Urine Creatinine 267 mg/dL [facility] Comment: Interpretive Data Urine Creatinine: < 10 mg/dL is extremely dilute = or > 10 but < 20 mg/dL is dilute = or > 20 mg/dL is normal Current Interpretive Data was last revised on 2017. Urine 05/10/2024 7:10 AM CDT 05/10/2024 7:25 AM CDT Narrative [facility] - 05/10/2024 8:14 AM CDT Drug of Abuse screening is performed by immunoassay for medical purposes only. ??This is not to be used for Pain Management purposes. Benny Newell MD LAB URINE ORDERABLES Fin al Result Performing Organization Address [facility] de Phone Number [facility] [place] [address] * (ABNORMAL) Urinalysis, microscopic only (05/10/2024 7:10 AM CDT) WBC, ur 0-5 0 - 5 /HPF RBC, ur 6-10(A) 0 - 2 /HPF [facility] Bacteria, ur Trace(A) [facility] Mucous, ur Present(A) [facility] Urine 05/10/2024 7:10 AM CDT 05/10/2024 7:25 AM CDT Harley Subramanian MD LAB URINE ORDERABLES Final Resul t Performing Organization Address [facility] de Phone Number [facility] [place] [address] * Ethanol (05/10/2024 7:10 AM CDT) Ethanol <10 <=10 mg/dL Comment: Interpretive Data Legal limit of intoxication > or = 80 mg/dL Levels > or = 400 mg/dL are potentially TOXIC. Current interpretive data was last revised on 2018. Blood 05/10/2024 7:10 AM CDT 05/10/2024 7:25 AM CDT Benny Newell MD LAB BLOOD ORDERABLES Fin al Result [facility] Department [place] [address] * (ABNORMAL) Comprehensive metabolic panel (05/10/2024 7:10 AM CDT) Sodium 141 135 - 145 mmol/L Potassium, pl 4.4 3.3 - 4.9 mmol/L [facility] Chloride 104 97 - 110 mmol/L [facility] CO2 28 22 - 32 mmol/L [facility] Anion gap 9 2 - 15 mmol/L [facility] BUN 20 6 - 25 mg/dL [facility] Creatinine 1.11 0.80 - 1.30 mg/dL [facility] Glucose 54(C) 70 - 199 mg/dL [facility] Comment: Glycolysis suspected; suggest sending a [...] 2022. Calcium 10.0 8.5 - 10.3 mg/dL [facility] Bilirubin, total 0.3 0.1 - 1.2 mg/dL [facility] Protein, pl 10.3(H) 6.5 - 8.5 g/dL [facility] Albumin 4.4 3.5 - 5.0 g/dL [facility] Alk phos 85 40 - 130 Units/L [facility] ALT 38 7 - 55 Units/L [facility] AST 42 10 - 50 Units/L [facility] Blood 05/10/2024 7:10 AM CDT 05/10/2024 7:25 AM CDT us Benny Newell MD LAB BLOOD ORDERABLES Fin al Result Performing Organization Address City/[facility] Co de Phone Number [facility] Department [place] [address] * Hemoglobin A1c (08/01/2017 9:13 PM HEAD OF HUMAN RESOURCES) Hgb A1C 5.7 4.0 - 6.0 % [facility] Estimated Average Glucose 117 mg/dL [facility] Comment: The ADA recommends reporting an estimated Average Glucose (eAG) with all Hemoglobin A1c results using the equation derived from a study of 507 normal and diabetic adults. ??Minority populations were underrepresented and children were not included. ?? (Diabetes Care 31:0940-9922, 2008). ??The eAG is not equivalent to a fasting glucose. Blood specimen (specimen) 08/01/2017 9:13 PM [employer] OF HUM[employer]OURCES 08/01/2017 9:25 PM [employer]OURCES Narrative [facility] - 08/03/2017 7:23 AM [employer] Padmini Lambert NP LAB BLOOD ORDERABLES Final Result Performing Organization Address [facility] de Phone Number [facility] Department [place] [address] from Last 3 Months or Most Recently Relevant to Health Maintenance [place] [id number] [address] [facility] [place] [id number] [place] [id number] [facility] [place] [id number] [facility] [place] [id number] [facility] Advance Directives For more information, please contact: [phone] * Full Code (Latest Code Status on [...] 3:50 AM 02/27/2024 5:24 PM Care Teams Lifestyle Consultant Relationship Specialty Start Date End Date Mady Sullivan MD [address] [facility] [address] [place] [address] PCP - General Infectious Diseases 10/12/23 No, Physician 10/12/23
--- OUTSIDE RECORDS SUMMARY | 2024-08-10 03:32 | XMS_ITS | Encounter Summary ---
Author Organization [facility] Healthcare Address [address] [place] [address] Care Team Providers Care Tuckpointer Cleaner Caulker Name Role Phone Mady Sullivan MD Primary Care Provider No, Physician Unavailable Encounter Details Date Type Department Care Team (Late st Contact Info) Description 06/20/2024 Telephone [facility] [address] [place] [address] Tj Patel [facility] Social History Tobacco Use Types Packs/Day Years Used Date Smoking Tobacco: Former Cigarettes Passive Smoke Exposure: Current Smokeless Tobacco: Never [facility] Utilities Answer Date Recorded In the past 12 months has [facility] [employer], gas, oil, or water [employer] threatened to shut off services in your [...] How often do you attend chur or anglican services? Patient unable to answer 06/04/2024 Do you belong to any clubs o r organizations such as sikhism groups, unions, fraternal or athletic groups, or [...] Date Recorded PHQ-2 Total Score 4 04/07/2024 [facility] - Occupational [...] place to sleep or slept in a skilled nursing (including now)? No 10/15/2023 Housing Stability Vital Sign Answer Jerrod e Recorded In the last 12 months, was t here a time when you were not able to pay the mortgage or rent on time? Yes 06/04/2024 In the past 12 months, how m any times have you moved where you were living? 5 06/04/2024 At any time in the past 12 m [facility], were you homeless or living in a skilled nursing (including now)? Yes 06/04/2024 Personal Safety Answer Date Recorded Have you ever been in or are you currently in a harmful physical or emotional relationship or is someone making you feel afraid or unsafe? Denies 06/18/2024 Education Answer Date Recorded What is the highest level of school you have completed or the highest degree you have received? Bachelor's degree (e.g., BA, AB, BS) 02/24/2024 Sex and Gender Information Value Date Recorded Sex Assigned at Not on file Legal Sex Male 11:02 PM PARAEDUCATOR Gender Identity Not on file Sexual Orientation [...] Author No 02/24/2024 10:18 AM CDT Manda Hardinia, AIR BREAKER OPERATOR * Do you have serious difficulty walking or climbing stairs? Answer Date of Assessment Author No 02/24/2024 10:18 AM CDT Manda Hardinricia, AIR BREAKER OPERATOR * Do you have serious difficulty dressing or bathing? Answer Date of Assessment Author No 02/24/2024 10:18 AM CDT HardinMandaricia, AIR BREAKER OPERATOR * Because of a physical, mental, or emotional condition, do you have serious difficulty doing errandsalone such as visiting the doctor? Answer Date of Assessment Author No 02/24/2024 10:18 AM CDT HardinMandaricia, AIR BREAKER OPERATOR documented as of this encounter Mental Status * Because of a physical, mental, or emotional condition, do you have serious difficulty concentrating, remembering, or making decisions? (5 years old or older) Answer Entry Date Author No 02/24/2024 10:18 AM CDManda Ibrahimia, AIR BREAKER OPERATOR documented in this encounter Miscellaneous Notes * Telephone Encounter - Tj Patel RPh - 06/20/2024 9:03 AM PARAEDUCATOR Transitions of Care Pharmacist Post-Discharge Follow-Up Phone Call Pharmacist called Phil Chase via telephone to review all medications and discuss any questions/concerns since last hospital discharge. Patient did not answer on second phone call attempt. Leftpatient a voicemail to call back if they have any medication-related questions/concerns. Tj Patel, PharmD, [facility] Clinical Barytes Grinder - Transitions of Care EDUCATOR documented in this encounter Plan of Treatment Not on file documented as of this encounter Visit Diagnoses Not on filedocumented in this encounter Care Teams Tuckpointer Cleaner Caulker Relationship Specialty Start Date End Date Mady Sullivan MD [address] [facility] [address] [place] [address] PCP - General Infectious Diseases 10/12/23 No, Physician 10/12/23 documented as of this encounter
--- OUTSIDE RECORDS SUMMARY | 2024-08-10 03:32 | XMS_ITS | Encounter Summary ---
Author Organization [facility] Healthcare Address [address] [place] [address] Care Team Providers Care Floor Coverer Name Role Phone Mady Sullivan MD Primary Care Provider No, Physician Unavailable Amira Javed CREAM CHEESE MAKER Unavailable [phone] Reason for Visit * Reason Comments Unsuccessful Phone Call 1 Encounter Details Date Type Department Care Team (Late st Contact Info) Description 07/09/2024 SHOP/CHAP Initial Outreach [facility] OP CASE MANAGEMENT [address] [place] [address] Amira Javed, CREAM CHEESE MAKER [address] [facility] ([facility] Mailstop [phone] [place] [address] Social History Tobacco Use Types Packs/Day Years Used Date Smoking Tobacco: Former Cigarettes Passive Smoke Exposure: Current Smokeless Tobacco: Never [facility] Utilities Answer Date Recorded In the past 12 months has [facility] [employer], gas, oil, or water [employer] threatened to shut off services in your [...] declined 07/08/2024 How often do you attend moravian or christian serv ices? Patient declined 07/08/2024 Do you belong to any clubs o r organizations such as moravian groups, unions, fraternal or athletic groups, or [...] slept in a long term (including now)? No 10/15/2023 Housing Stability Vital [...] any time in the past 12 m [facility], were you homeless or living in a long term (including now)? Patient declined 07/08/2024 Personal Safety [...] on file Legal Sex Male 11:02 PM MANAGING PRINCIPAL Gender Identity Not on file Sexual Orientation [...] is undergoing Ring Surveillance for admission to [facility]. VICTOR MANUEL Ch [facility]IC 07/05/2024 07/05/2024 07/09/2024 10:55 AM MANAGING PRINCIPAL C. difficile suspected 07/07/2024 07/07/202407/09 3:05 AM MANAGING PRINCIPAL documented as of this encounter Care Teams Floor Coverer Relationship Specialty Start Date End Date Mady Sullivan MD [address] [place] [id number] PCP - General Infectious Diseases 10/12/23 No, Physician 10/12/23 Amira Javed LCSW [address] [facility] ([facility] Mailstop [phone] [place] [address] SHOP Outpatient Template Inspector 07/09/24 07/09/24 documented as of this encounter
--- OUTSIDE RECORDS SUMMARY | 2024-08-10 03:32 | XMS_ITS | Encounter Summary ---
Author Organization [facility] Healthcare Address [address] [place] [address] Care Team Providers Care Elderly Caregiver Name Role Phone Mady Sullivan MD Primary Care Provider No, Physician Unavailable Nguyen Stephenson RN Unavailable [phone] Reason for Visit * Reason Comments Unsuccessful Phone Call 1 Encounter Details Date Type Department Care Team (Late st Contact Info) Description 06/09/2024 SHOP/CHAP Initial Outreach [facility] OP CASE MANAGEMENT [address] [place] [address] Nguyen Stephenson, RN [address] [facility] [address] [place] [address] Social History Tobacco Use Types Packs/Day Years Used Date Smoking Tobacco: Former Cigarettes Passive Smoke Exposure: Current Smokeless Tobacco: Never [facility] Utilities Answer Date Recorded In the past 12 months has [facility] [employer], oil, or water [employer] threatened to shut off services in your [...] answer 06/04/2024 How often do you attend [facility] or gnosticism services? Patient unable to answer 06/04/2024 Do you belong to any clubs o r organizations such as confucianism groups, unions, fraternal or athletic groups, or [...] Date Recorded PHQ-2 Total Score 4 04/07/2024 [facility] Occupat ional Health - Occupational Stress [...] place to sleep or slept in a half-way (including now)? No 10/15/2023 Housing Stability Vital [...] time in the past 12 m [facility], were you homeless or living in a half-way (including now)? Yes 06/04/2024 Personal Safety Answer [...] on file Legal Sex Male 11:02 PM OUTSOLE PARAFFINER Gender Identity Not on file Sexual Orientation Not on file Occupation Industry Job Start Date Job End Date unemployed Not on file Not on file Not on file documented as of this encounter Functional Status * Are you deaf or do you have serious difficulty hearing? Answer Date of Assessment Author No 02/24/2024 10:18 AM CDT Cynthia Hardingasandor DickensSherine, SECOND COOK AND BAKER * Are you blind or do you have serious difficulty seeing, even when wearing glasses? Answer Date of Assessment Author No 02/24/2024 10:18 AM CDJose Hardin Manda Sherine, SECOND [employer]OOK [employer] BAKER * Do you have serious difficulty walking or climbing stairs? Answer Date of Assessment Author No 02/24/2024 10:18 AM CDJose Hardin Manda Sherine, SECOND [employer]OOK [employer] BAKER * Do you have serious difficulty dressing or bathing? Answer Date of Assessment Author No 02/24/2024 10:18 AM CDJose Summersjuan jose Manda Sherine, SECOND COOK AND BAKER * Because of a physical, mental, or emotional condition, do you have serious difficulty doing errandsalone such as visiting the doctor? Answer Date of Assessment Author No 02/24/2024 10:18 AM CDManda Ibrahim SECOND COOK AND BAKER documented as of this encounter Mental Status * Because of a physical, mental, or emotional condition, do you have serious difficulty concentrating, remembering, or making decisions? (5 years old or older) Answer Entry Date Author No 02/24/2024 10:18 AM LAURO Hardin Manda Sherine, SECOND COOK AND BAKER documented in this encounter Plan of Treatment Not on file documented as of this encounter Visit Diagnoses Not on filedocumented in this encounter Care Teams Elderly Caregiver Relationship Specialty Start Date End Date Mady Sullivan MD [address] [facility] [address] [place] [address] PCP - General Infectious Diseases 10/12/23 No, Physician 10/12/23 Nguyen Stephenson, VICTOR MANUEL [address] [facility] [address] [place] [address] SHOP Outpatient Airport Sales Agent 06/09/24 06/11/24 documented as of this encounter
--- OUTSIDE RECORDS SUMMARY | 2024-08-10 03:32 | XMS_ITS | Encounter Summary ---
Author Organization [facility] Healthcare Address [address] [place] [address] Care Team Providers Care Packer Sausage And Wiener Name Role Phone Mady Sullivan MD Primary Care Provider No, Physician Unavailable Amira Javed CHARTER REPRESENTATIVE Unavailable [phone] Reason for Visit * Reason Comments SHOP Patient Eligibility Review Encounter Details Date Type Department Care Team (Late st Contact Info) Description 07/09/2024 SHOP/CHAP Initial Eligibility Review [facility] OP CASE MANAGEMENT [address] [place] [address] Amira Javed, CHARTER REPRESENTATIVE [address] [facility] Mailstop [phone] [place] [address] Social History Tobacco Use Types Packs/Day Years Used Date Smoking Tobacco: Former Cigarettes Passive Smoke Exposure: Current Smokeless Tobacco: Never [facility] Utilities Answer Date Recorded In the past 12 months has [facility] [email or web address], gas, oil, or water [employer] threatened to shut off services in your [...] declined 07/08/2024 How often do you attend holiness or yazidi serv ices? Patient declined 07/08/2024 Do you belong to any clubs o r organizations such as holiness groups, unions, fraternal or athletic groups, or [...] Date Recorded PHQ-2 Total Score 4 04/07/2024 [facility] of Occupat ional Health - Occupational [...] in the past 12 m [facility], were you homeless or living in a residential (including now)? Patient declined 07/08/2024 Personal Safety [...] on file Legal Sex Male 11:02 PM CLAY MILLER Gender Identity Not on file Sexual Orientation [...] is undergoing Ring Surveillance for admission to [facility]. VICTOR MANUEL Ch [facility] 07/05/2024 07/05/2024 07/09/2024 10:55 AM CLAY MILLER C. difficile suspected 07/07/2024 07/07/202407/09 3:05 AM CLAY MILLER documented as of this encounter Care Teams Packer Sausage And Wiener Relationship Specialty Start Date End Date Mady Sullivan MD [address] [place] [address] PCP - General Infectious Diseases 10/12/23 No, Physician 10/12/23 Amira Javed LCSW [address] [facility] Mailstop [phone] [place] [address] SHOP Outpatient Independent Trader 07/09/24 07/09/24 documented as of this encounter
--- OUTSIDE RECORDS SUMMARY | 2024-08-10 03:32 | XMS_ITS | Encounter Summary ---
Author Organization [facility] Healthcare Address [address] [place] [address] Care Team Providers Care Grade Setter Name Role Phone Mady Sullivan MD Primary Care Provider No, Physician Unavailable Reason for Referral * Consultation (Routine) - Pending Review Specialty Diagnoses / Procedures Referred By Ara cazares Referred To Contact Neurology Diagnoses Right leg numbness Foot drop, right Onur Johnson MD [address] [place] [address] Phone: tel: fax: [facility] [address] [place] [address] 4[address] [place] [address] Phone: tel: fax: Referral ID Status Reason Start Date Expiration Date Visits Requested Visits Authorized [id number] Pending Review Specialty Services Required 06/27/2024 07/27/2025 1 1 Question Answer Please select the performing region: [facility] [[id number]] Please select the performing department: [facility] NEUROLOGY [[id number]] # of visits: 1 RUNNER Reason for Visit * Reason Comments Leg Pain Encounter Details Date Type Department Care Team (Late st Contact Info) Description 06/27/2024 8:31 PM CUFF RUNNER - 06/27/2024 8:58 PM CUFF RUNNER Emergency [facility] Emergency Department [address] [place] [address] Onur Johnson MD [address] [place] [address] Right leg numbness (Primary Dx); Foot drop, right Discharge Disposition: Discharge to home or self care Social History Tobacco Use Types Packs/Day Years Used Date Smoking Tobacco: Former Cigarettes Passive Smoke Exposure: Current Smokeless Tobacco: Never [facility] [employer]comities Answer Date Recorded In the past 12 months has [facility] [employer], gas, oil, or water [employer] threatened to shut off services in your [...] answer 06/04/2024 How often do you attend [facility] or protestant services? Patient unable to answer 06/04/2024 Do you belong to any clubs o r organizations such as sabianist groups, unions, fraternal or athletic groups, or [...] Date Recorded PHQ-2 Total Score 4 04/07/2024 [facility] - Occupational Stress Questionnaire Answer [...] any time in the past 12 m onths, were you homeless or living in a jail (including now)? Yes 06/04/2024 Personal Safety Answer [...] on file Legal Sex Male 11:02 PM CUFF RUNNER Gender Identity Not on file Sexual Orientation Not on file Occupation Industry Job Start Date Job End Date unemployed Not on file Not on file Not on file documented as of this encounter Last Filed Vital Signs Vital Sign Reading Time Taken Comments Blood Pressure 127/79 06/27/2024 6:49 PM CUFF RUNNER Pulse 76 06/27/2024 6:49 PM CUFF RUNNER Temperature 36.6 ??C (97.9 ??F) 06/27/2024 6:49 PM CS T Respiratory Rate 16 06/27/2024 6:49 PM CUFF RUNNER Oxygen Saturation 99% 06/27/2024 6:49 PM CUFF RUNNER Inhaled Oxygen Concentration - - Weight 81.6 kg (180 lb) 06/27/2024 6:58 PM CUFF RUNNER Height 182.9 cm (6') 06/27/2024 6:58 PM CUFF RUNNER Body Mass Index 24.41 06/27/2024 6:58 PM CUFF RUNNER documented in this encounter Functional Status * [...] Manda Mcintyre MSW documented in this encounter Discharge Instructions * Attachments The following attachments cannot be sent through Care Everywhere. * Foot Drop (South African) documented in this encounter Medications at Time [...] Refills Last Filled Start Date End Date gabapentin (NEURONTIN) 100 mg capsule Take 1 capsule (100 mg total) by mouth 3 (three) times a day 60 capsule 06/27/2024 documented in this encounter Discharge Disposition Disposition Code Departure Means Destination Comment s Discharge to home or self care documented in this encounter Progress Notes * Annette Trujillo MSW - 06/27/2024 8:58 PM CST AVTAR consulted regarding transportation assistance. [facility]AR met with patient in [facility] to confirm home address ([address]). Pt is ambulatory and reported having access to location. Patient currently has active ID Medicaid. AVTAR contacted [facility] [phone] and spoke with Amira. Trip was accepted. No further needs. Annette Trujillo LMSW RUNNER documented in this encounter ED Notes * Onur Johnson MD - 06/27/2024 8:40 PM CST HPI Chief Complaint Patient presents with Leg Pain 28 y M hx of HIV presenting here with right leg numbness, decreased coordination when he woke up this morning. Went to be around 2am this morning, woke up around 8am. Has had neuropathy in the past, has had a hx of foot drop on the right. Normally wears a brace. Does use methamphetamines, most recently used 4 days ago. He has resources for substance use disorder follow-up, but he states that he is not ready for it yet. Patient History: Past Medical History: Diagnosis Date Anal warts Borderline personality disorder (CMS/HCC) ([facility]) Depression prior suicide attempts (10/2023, 02/2024) Depression with suicidal ideation HIV (human immunodeficiency virus infection) (HCC) HIV (human immunodeficiency virus infection) ([facility]) Dx 2018 Methamphetamine use disorder, moderate, in early remission ([facility]) Neuropathy (CMS/FORMERLY [facility]) PTSD (post-traumatic stress disorder) Syphilis (acquired) Rx'd [...] History Encounter Data from: 03/01/24 Enc Dept: [facility] ED Born and raised: [place], moved to [facility] when 8 yo Currently lives: inpatient substance abuse rehab, pt says at [facility], but consult note says at [facility] Family Feels safe: yes Access to firearms: no currently while at inpatient substance abuse rehab Educ ation: per pt he graduated and college with a degree in computer science Work: Not currently employed, 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 Review of Systems Review of Systems Constitutional: Negative for fever. Physical Exam ED Triage Vitals Temp Pulse Resp BP SpO2 06/27/24184806/27/24184806/27/24184806/27/24184806/27/241848 36.6 ??C (97.9 ??F) 76 16 127/79 99 % Temp src Heart Rate Source Patient Position BP Location FiO2 (%) 06/27/241848 -- -- -- -- Oral Height Height Method Weight Weight Method 06/27/24185706/27/24185706/27/24185706/27/241857 1.829 m (6') Stated 81.6 kg (180 lb) Stated Physical Exam Constitutional: General: He is not in acute distress. Neurological: Comments: Strength 5/5 and sensation intact to light touch to the bilateral upper extremities. He has 4/5 strength with dorsiflexion at the right ankle, and decreased sensation to light touch to the right leg below the knee particularly on the lateral aspect, but he states that these are chronic. Otherwise strength 5/5 to the left lower extremity and sensation intact to light touch to the lower extremity. Able to ambulate independently MDM Medical Decision Making Assessment: 28-year-old M with history of HIV, peripheral neuropathy, chronic foot drop on the right presenting here with concern for increased right leg numbness and weakness. Exam as listed above. Suspect possible exacerbation of his underlying neuropathy. Differential Diagnosis: Peripheral neuropathy, lower concern for acute CVA. No recent traumatic injuries to suggest spinal cord injury Plan: Patient requesting refill on gabapentin, which I will provide. Also will provide Neurology follow-up for his neuropathy, in addition to [facility] Behavioral Health follow-up for substance use disorder. Risk Prescription drug management. Final diagnoses: Right leg numbness Foot drop, right Onur Johnson MD 06/27/242108 RUNNER * Janina Paulino RN - 06/27/2024 6:53 PM CST Pt BIBEMS after legs gave out this evening and his legs are having intermittent aching/tingling/numbness for 2 wks that pt states is r/t neuropathy. Per pt had a mini stroke a month ago( Went to [facility]). Pt states he is HIV+ and is not compliant with HIV medication d/t just forgetting to take them. RUNNER RUNNER RUNNER documented in this encounter Miscellaneous Notes * ED Pre-Arrival Note - Braden Coronel RN - 06/27/2024 6:48 PM CUFF RUNNER Pre-Arrival Note Pt bibems r/t non traumatic chronic R leg pain. Pt denies falls/injuries, pms intact, GCS 15, vss Braden Coronel RN RUNNER documented in this encounter Plan of Treatment Scheduled Referrals Name Type Priority Associated Diagnoses Order Schedule Ambulatory referral to Neurology Outpatient Referral Routine Right leg numbness Foot drop, right Expected: 07/11/2024 (Approximate), Expires: 06/27/2025 documented as of this encounter Visit Diagnoses Diagnosis Right leg numbness- Primary Disturbance of skin sensation Foot drop, right Other acquired deformity of ankle and foot documented in this encounter Care Teams Grade Setter Relationship Specialty Start Date End Date Mady Sullivan MD [address] [place], [place] [address] [address] [address] PCP - General Infectious Diseases 10/12/23 No, Physician 10/12/23 documented as of this encounter
--- OUTSIDE RECORDS SUMMARY | 2024-08-10 03:32 | XMS_ITS | Encounter Summary ---
Author Organization [facility] Address [address] [place] [address] Care Team Providers Care Rewind Operator Name Role Phone Mady Sullivan MD Primary Care Provider No, Physician Unavailable Reason for Visit * Reason Comments Mental Health Problem Pt states he was i nvited to a [employer] [facility] constitution party, several people were doing drugs which triggered him states 7 years clean from drugs. Triggered SI thoughts Encounter Details Date Type Department Care Team (Late st Contact Info) Description 06/18/2024 11:54 PM SOCIAL SERVICE ASSISTANT - 06/19/2024 12:[address] [facility] Emergency [facility] Emergency Department [address] [place] [address] Suicidal ideation (Primary Dx); Substance use disorder Discharge Disposition: Discharge to home or self care Social History Tobacco Use Types Packs/Day Years Used Date Smoking Tobacco: Former Cigarettes Passive Smoke Exposure: Current Smokeless Tobacco: Never [facility] Utilities Answer Date Recorded In the past 12 months has [facility] [employer], gas, oil, or water [employer] threatened to shut off services in your [...] answer 06/04/2024 How often do you attend [facility] or restoration services? Patient unable to answer 06/04/2024 Do [...] Date Recorded PHQ-2 Total Score 4 04/07/2024 [facility] of Occupat ional [...] or slept in a penitentiary (including now)? No 10/15/2023 Housing Stability Vital Sign Answer Jerrod e Recorded In the last 12 months, was t here a time when you were not able to pay the mortgage or rent on time? Yes 06/04/2024 In the past 12 months, how m any times have you moved where you were living? 5 06/04/2024 At any time in the past 12 m [facility], were you homeless or living in a penitentiary (including now)? Yes 06/04/2024 Personal Safety Answer [...] on file Legal Sex Male 11:02 PM SOCIAL SERVICE ASSISTANT Gender Identity Not on file Sexual Orientation Not on file Occupation Industry Job Start Date Job End Date unemployed Not on file Not on file Not on file documented as of this encounter Last Filed Vital Signs Vital Sign Reading Time Taken Comments Blood Pressure 136/90 06/18/2024 11:52 PM SOCIAL SERVICE ASSISTANT Pulse 80 06/18/2024 11:52 PM SOCIAL SERVICE ASSISTANT Temperature 36.7 ??C (98 ??F) 06/18/2024 11:56 PM SOCIAL SERVICE ASSISTANT Respiratory Rate 16 06/18/2024 11:52 PM SOCIAL SERVICE ASSISTANT Oxygen Saturation 95% 06/18/2024 11:52 PM SOCIAL SERVICE ASSISTANT Inhaled Oxygen Concentration - - Weight 68 kg (149 lb 14.6 oz) 06/18/2024 11:56 P M SOCIAL SERVICE ASSISTANT Height 182.9 cm (6' 0.01 ) 06/18/2024 11:[address] Body Mass Index 20.33 06/18/2024 11:56 PM SOCIAL SERVICE ASSISTANT documented in this encounter Functional Status * [...] Author No 02/24/2024 10:18 AM CDManda Ibrahim ELECTRICAL INTERN * Because of a physical, mental, or emotional condition, do you have serious difficulty doing errandsalone such as visiting the doctor? Answer Date of Assessment Author No 02/24/2024 10:18 AM CDManda Ibrahim ELECTRICAL INTERN documented as of this encounter Mental Status * Because of a physical, mental, or emotional condition, do you have serious difficulty concentrating, remembering, or making decisions? (5 years old or older) Answer Entry Date Author No 02/24/2024 10:18 AM CDManda Ibarhim MSW documented in this encounter Discharge Instructions * Discharge Instructions* Tabitha Justice MD - 06/19/2024 12:23 AM SOCIAL SERVICE ASSISTANT Follow-up with [facility] walk-in clinic. You can also follow-up at [facility]. Please call your case operator to help you get mental health care and help with follow-up visits. Additional resources arebelow. Here is the information for [facility]. You can re-establish with [facility] at their walk in clinic at the following address. Please bring ID when you present to the clinic: Mendel Guti[address]rez [address] [place] [address] [phone] HOURS Sunday - Sunday 8:30 a.m. - 3:30 p.m. [facility] Walk In Clinic/Behavioral Health Rehabilitation Services: Please visit our [facility] at [address] [place] [address] during walk-in hours or schedule an appointment for an initial screening for short-term or long-term behavioral health rehabilitation services. [facility] walk-in hours are available Sunday through Sunday, 8:30-11 a.m. and 1-3 p.m. Appointments may be scheduled by calling [phone], Ext. [phone]. [facility] - Same Day Access (SDA) [facility] ([facility]) provides and coordinates an array of mental health services for citizens residing in [facility], [facility], and the [facility] of [facility], and [place], [place]. What is Same Day Access? Same Day Access (SDA) is a walk-in clinic serving people with mental health needs. Each walk-in will be seen by a mental health clinician. Where can I access Same Day Access services? Five [facility] locations offer SDA services--please call ahead to ensure hours and availabilities havenot changed due to COVID-19. [facility] [address] [place] [address] Sunday - Sunday 8 a.m. - 5 p.m. [facility] [address], [address] [place] [address] Sunday - Sunday 8 a.m. - 5 p.m. [facility] [address] [place] [address] Sunday - 9 a.m. - 5 p.m. Sunday 9 a.m. - 3 p.m. [facility] [address] [place] [address] Wednesdays 9 a.m. - 3:[address] [address] Wednes 9 a.m. - 3:30 p.m. Below are some additional resources: Crisis/Distress Hotlines [facility] Life Crisis Services [phone] Behavioral Health Response [phone] (in [facility] area) Kids [facility] Twenty One (KUTO) (local) Safe Connections (Domestic Violence) 24-hour crisis line 267-003-7541 ALIVE (Alternatives to Living in Violent Environments) 393.321.2540 [facility]pl[facility] (LGBT youth) [phone] Youth Emergency Service Hotline 787-964-5979 National Suicide Prevention Lifeline 6-593-954-EADM (4114) [facility] [address] [place] [address] [facility] (open 24 hrs) [address], [place] [address] [facility] [address] [facility] [facility] [address] [facility] [address] [place] [address] Counseling Services [facility] [address] [place] [address] [facility] [address] [place] [address] [facility] [address] [place] [address] [facility] [address] [place] [address] [facility] [place] [address] [place] [address] [facility] [address], [place] [address] Drug and Alcohol Abuse NCADA (National [place] on Alcoholism and Drug Abuse) [phone] ([facility]); [phone] ([facility]) [facility] [phone] [facility] [phone] [facility] [phone] ([facility]) [phone] ([facility]); [phone] ([facility]) (women only) [phone] [facility] [phone] General Information/Emergency Services [facility] (referrals to resources and services) or [phone] (5168) Police/Emergency Assistance [facility] Police non-emergency number [phone] [facility] Police non-emergency number [phone] Child Abuse/Neglect Line Call 911 if you feel you are at immediate risk of suicide, or if you identify an active suicide plan. Other resources available to you are: The National Suicide Prevention Lifeline at 5-903-212-TALK (0255) The Suicide Hotline at 1-421-NLLPUXO ( ) AL SERVICE ASSISTANT * Attachments The following attachments cannot be sent through Care Everywhere. * Abuse, Drug (Lao) documented in this encounter Medications at Time of Discharge ARIPiprazole (ABILIFY) 10 mg tabletIndications :Depression Treatment Adjunct Take 1 tablet (10 mg total) by mouth daily for 15 days 15 tablet 04/14/2024 bictegravir-emtri citabine-tenofovi r (BIKTARVY) 50-200-25 mg tablet Take 1 tablet by mouth daily 30 tablet 3 06/07/2024 loperamide (IMODIUM) 2 mg capsule Take 1 [...] by mouth nightly as needed 02/21/2024 4 doxepin (SINEquan) 25 mg capsule Take [...] Progress Notes * Annette Trujillo MSW - 06/19/2024 12:31 AM CST EDSW referred to pt for transportation assistance. Pt initially unable to provide SW with address to return to. Pt then requested transportation to [address] [place] [address]. SW arranged transportation to ensure safe and timely discharge. Annette Trujillo LMSW AL SERVICE ASSISTANT documented in this encounter ED Notes * Tabitha Justice MD - 06/19/2024 12:25 AM CST HPI Chief Complaint Patient presents with Mental Health Problem Pt states he was invited to a hotel constitution party, several people were doing drugs which triggered him states 7 years clean from drugs. Triggered SI thoughts HPI 28 year-old male with past medical history significant for borderline personality, polysubstance use, and HIV who presents with a complaint of mental health problem. The patient states that he went to a constitution party in a hotel room and he became triggered because other people were using drugs and he sawpeople with needles in their arms. He wanted to get out of there, so he called EMS. He states that he has been suicidal since this occurred, though later changes his story to state that he was suicidal earlier today as well. Denies any substance use today. States that he does not have any family orfriends at present that he is close to. Multiple stressors, including difficult relationships, unstable housing, and chronic medical illness. States that he is not interested in substance treatment because he is currently sober other than marijuana use. He has not followed up with psychiatry outpatient because he has been busy. States that he did talk with his rn team leader today. He wants to workon getting further education in the future and may go to substance treatment in the future if he relapses again. States that he wants to be admitted to the hospital so that he can get away for awhile. He denies any substance use tonight. He states that he is currently sober, though admits to multiple prior relapses. On chart review, the patient was admitted earlier this month for intentional Xanaxoverdose. States that he does not currently have Xanax. He has presented to the hospital multiple times and been evaluated by psychiatry multiple times, including during this recent medicine admission for overdose. Last psychiatric admission was on 03/03 (discharged same date), at which time he was diagnosed with borderline personality disorder and malingering. Prior psychiatry notes have been reviewed. He has been admitted to psychiatry multiple times wtihout clear benefit. Significant from note on 06/05/24: Patient has a diagnosis of borderline personality characterized by chronic pattern of attention-seeking behavior, chronic feelings of emptiness, non- suicidal self-injurious behavior (cutting), intense and unstable interpersonal relationships, unstable sense of self, impulsivity, poor coping skills, marked reactivity of mood, inappropriate intense anger/difficulty controlling anger, numerous suicidal gestures/suicide attempts, and manipulative behavior. He has frequent ED visits for SI and has been admitted to psych numerous times without any clear benefit. Patient's known pattern of repeated, manipulative attempts to remains hospitalized in order to obtain penitentiary, and this is not modifiable by an inpatient psychiatric admission. Patient has not benefited from previous admissions, as evidenced by his frequent ED presentations and inpatient hospitalizations. Overall, this patient is at chronic high risk of harm to self and others due to non-modifiable risk factors, and he does not have acute risk factors that can be modified by an inpatient psychadmission. Patient History: Patient Active Problem List Diagnosis Date Noted Intentional benzodiazepine overdose, initial encounter ([facility]) 06/02/2024 Dental abscess 04/04/2024 Borderline personality disorder ([facility]) ([facility]) 03/03/2024 Neutropenia ([facility]) 03/03/2024 [place] 03/03/2024 Suicide attempt ([facility]) 02/24/2024 Lower extremity pain, right 02/24/2024 Stimulant use disorder 02/24/2024 Suicide ideation 01/29/2024 Cannabis use disorder, severe ([facility]) 01/26/2024 Routine general medical examination at a health care facility 01/26/2024 PTSD (post-traumatic stress disorder) 10/12/2023 Vertigo 10/11/2023 Unspecified mood disorder ([facility]) 10/10/2023 HIV disease ([facility]) ([facility]) 10/03/2023 Syphilis 10/03/2023 Inguinal hernia 10/03/2023 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[facility]) 10/03/2023 Plaque psoriasis 10/03/2023 Methamphetamine use disorder, moderate ([facility]) 10/03/2023 Borderline personality disorder, rule out other organic causes of unusual pEX/MSE 10/02/2023 HIV (human immunodeficiency virus infection) ([facility]) 10/30/2022 Skin lesion 10/30/2022 Painless rectal bleeding 10/30/2022 Depressive disorder 10/30/2022 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 Condyloma 10/29/2020 Past Medical History: Diagnosis Date Anal warts Borderline personality disorder ([facility]) ([facility]) Depression prior suicide attempts (10/2023, 02/2024) Depression with suicidal ideation HIV (human immunodeficiency virus infection) ([facility]) HIV (human immunodeficiency virus infection) ([facility]) Dx 2018 Methamphetamine use disorder, moderate, in early remission ([facility]) Neuropathy ([facility]) PTSD (post-traumatic stress disorder) Syphilis (acquired) Rx'd [...] History Encounter Data from: 03/01/24 Enc Dept: [facility] ED Born and raised: [place], moved to [place] when 8 yo Currently lives: inpatient substance abuse rehab, pt says at [facility], but consult note says at [facility] Feels safe: yes Access to firearms: no currently while at inpatient substance abuse rehab Educ ation: per pt he graduated and college with a degree in [employer] 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 Review of Systems Review of Systems Constitutional: Negative for chills and fever. HENT: Negative for ear pain and sore throat. Eyes: Negative for pain and visual disturbance. Respiratory: Negative for cough and shortness of breath. Cardiovascular: Negative for chest pain and palpitations. Gastrointestinal: Negative for abdominal pain and vomiting. Genitourinary: Negative for dysuria and hematuria. Musculoskeletal: Negative for arthralgias and back pain. Skin: Negative for color change and rash. Neurological: Negative for seizures and syncope. Psychiatric/Behavioral: Positive for dysphoric mood and suicidal ideas. All other systems reviewed and are negative. Physical Exam ED Triage Vitals Temp Pulse Resp BP SpO2 06/18/24 2356 06/18/24 2352 06/18/24 2352 06/18/24 2352 11/2351 36.7 ??C (98 ??F) 80 16 136/90 95 % Temp src Heart Rate Source Patient Position BP Location FiO2 (%) 06/18/242355 -- -- -- -- Oral Height Height Method Weight Weight Method 06/18/242355 -- 06/18/242355 -- 1.829 m (6' 0.01 ) 68 kg (149 lb 14.6 oz) Physical Exam Vitals and nursing note reviewed. Constitutional: General: He is not in acute distress. Appearance: He is well-developed. He is not ill-appearing or diaphoretic. HENT: Head: Normocephalic and atraumatic. Mouth/Throat: Mouth: Mucous membranes are moist. Eyes: General: No scleral icterus. Conjunctiva/sclera: Conjunctivae normal. Cardiovascular: Rate and Rhythm: Normal rate and regular rhythm. Heart sounds: No murmur heard. No friction rub. No gallop. Pulmonary: Effort: Pulmonary effort is normal. No respiratory distress. Breath sounds: Normal breath sounds. No wheezing, rhonchi or rales. Abdominal: General: There is no distension. Palpations: Abdomen is soft. Tenderness: There is no abdominal tenderness. There is no guarding or rebound. Musculoskeletal: General: No swelling. Cervical back: Neck supple. Skin: General: Skin is warm and dry. Capillary Refill: Capillary refill takes less than 2 seconds. Neurological: Mental Status: He is alert. Psychiatric: Comments: Mood is suicidal. Reactive affect. Poor insight. Not tangential. Not attending to internal stimuli. Anxious. Increased psychomotor activity. Euthymic, full range. Answering questions appropriately. Future oriented. MDM 28 year-old male with past medical history significant for borderline personality, polysubstance use, and HIV who presents with a complaint of mental health problem. Endorses suicidal ideation, but no clear plan. When advised he was going to be discharged, he then stated that he wanted to transfer to another hospital so he could be admitted or at least stay in the waiting room overnight so that he could get some rest. Offered substance use treatment resources, which he declined. Answering questions appropriately and low concern for acute intoxication. No evidence of withdrawal symptoms. No evidence of natividad. No delusions, disorganized thinking, or hallucinations. Low concern for psychosis, including low concern for substance induced psychosis. Could have substance induced mood disorder, but symptoms have been more persistent than this and so less likely. Patient with chronic suicidal ideation and suicidal gestures. Chart review more indicative of borderline personality disorder with manipulative behavior. Currently primary goal is to achieve housing based on my evaluation of the patient and [facility] He is at chronically elevated risk of self harm. However, his prior history and evaluations have been consistent that this is not modifiable by admission. His presentation today is similar to his multiple prior presentations. States that h mattie will jean marie me if he goes home and tries to harm himself and that we are legally bound to admit someone who is suicidal. Requests transfer again to another hospital for admission. Stating I should have gone to a hospital in [place] so they will admit me. I'll go there next time. Seen by social work for resources. Appropriate for discharge. Encouraged patient to follow-up with outpatient psychiatry, substance treatment resources, and his rn team leader. Medical Decision Making Final diagnoses: Suicidal ideation Substance use disorder Tabitha Justice MD 06/19/24 0151 AL SERVICE ASSISTANT documented in this encounter Miscellaneous Notes * ED Pre-Arrival Note - Shawnee Roa RN - 06/18/2024 11:50 PM SOCIAL SERVICE ASSISTANT Pre-Arrival Note Pt BIBEMS from home, endorsing anxiety and SI with no plan. Calm and cooperative with staff Shawnee Roa RN AL SERVICE ASSISTANT documented in this encounter Plan of Treatment Not on file documented as of this encounter Visit Diagnoses Diagnosis Suicidal ideation- Primary Substance use disorder documented in this encounter Discontinued Medications Medication Sig Discontinue Reason Start Date End Da te busPIRone (BUSPAR) 10 mg tablet Take 1 tablet (10 mg total) by mouth 3 (three) times a day 02/08/2024 06/19/2024 HYDROcodone-acetaminophe n (NORCO) 5-325 mg per tablet Take 1 tablet by mouth every 6 (six) hours as needed for pain 04/09/2024 06/19/2024 documented as of this encounter Care Teams Rewind Operator Relationship Specialty Start Date End Date Mady Sullivan MD [address] [facility] [address] [address] PCP - General Infectious Diseases 10/12/23 No, Physician 10/12/23 documented as of this encounter
--- OUTSIDE RECORDS SUMMARY | 2024-08-10 03:32 | XMS_ITS | Encounter Summary ---
Author Organization [facility] Address [address] [place] [address] Care Team Providers Care Web Marketing Specialist Name Role Phone Mady Sullivan MD Primary Care Provider No, Physician Unavailable Reason for Visit * Reason Comments Stroke Encounter Details Date Type Department Care Team (Late st Contact Info) Description 07/03/2024 5:01 AM ENVIRONMENTAL DIRECTOR - 07/03/2024 11:50 AM ENVIRONMENTAL DIRECTOR Emergency [facility] Emergency Department [address] [place] [address] Rafa Billings MD [address] [place] [address] Chas Friedman MD [address] [place] [address] Visual loss (Primary Dx); HIV infection, unspecified symptom status (HCC); Hx of transient ischemic attack (TIA) Discharge Disposition: Left Against Medical Advice Social History Tobacco Use Types Packs/Day Years Used Date Smoking Tobacco: Former Cigarettes Passive Smoke Exposure: Current Smokeless Tobacco: Never [facility] Utilities Answer Date Recorded In the past 12 months has [facility] [employer], gas, oil, or water [facility] threatened to shut off services in your [...] How often do you attend chur or restorationist services? Patient unable to answer 06/04/2024 Do you belong to any clubs o r organizations such as episcopal groups, unions, fraternal or athletic groups, or [...] Date Recorded PHQ-2 Total Score 4 04/07/2024 [facility] of Occupat ional Health - Occupational Stress [...] place to sleep or slept in a detention (including now)? No 10/15/2023 Housing Stability Vital [...] time in the past 12 m [facility], were you homeless or living in a detention (including now)? Yes 06/04/2024 Personal Safety Answer Date Recorded Have you ever been in or are you currently in a harmful physical or emotional relationship or is someone making you feel afraid or unsafe? Denies 07/04/2024 Education Answer Date Recorded What is the highest level of school you have completed or the highest degree you have received? Bachelor's degree (e.g., BA, AB, BS) 02/24/2024 Sex and Gender Information Value Date Recorded Sex Assigned at Not on file Legal Sex Male 11:02 PM ENVIRONMENTAL DIRECTOR Gender Identity Not on file Sexual Orientation Not on file Occupation Industry Job Start Date Job End Date unemployed Not on file Not on file Not on file documented as of this encounter Last Filed Vital Signs Vital Sign Reading Time Taken Comments Blood Pressure 146/79 07/03/2024 11:50 AM ENVIRONMENTAL DIRECTOR Pulse 77 07/03/2024 11:50 AM ENVIRONMENTAL DIRECTOR Temperature - - Respiratory Rate 16 07/03/2024 11:50 AM ENVIRONMENTAL DIRECTOR Oxygen Saturation 100% 07/03/2024 11:50 AM ENVIRONMENTAL DIRECTOR Inhaled Oxygen Concentration - - Weight 69 kg (152 lb 1.6 oz) 07/03/2024 5:31 AM ENVIRONMENTAL DIRECTOR Height - - Body Mass Index 20.63 06/27/2024 6:58 PM ENVIRONMENTAL DIRECTOR documented in this encounter Functional Status * [...] Disposition Code Departure Means Destination Comment s Left Against Medical Advice documented in this encounter Progress Notes * Doris Gallegos LCSW - 07/03/2024 11:50 AM CST EDSW consulted for D/C transportation. Pt has [place] Medicaid and has a transportation benefit. SW reviewed pt's chart and learned that pt is leaving AMA. SW met with pt and explained that his insurance will not provide transportation unless the pt is seen and cleared by a physician. AIDE Sethi, MONA RONMENTAL DIRECTOR documented in this encounter Consult Notes * Candida Grullon MD - 07/03/2024 7:21 AM CSTAssociated Order(s): IP CONSULT TO OPHTHALMOLOGY OPHTHALMOLOGY - INPATIENT NEW CONSULT REPORT Reason for Consult: right superior vision loss, right eye only; No Go stroke; hx of TIA, neurosyphilis, and methamphetamine use Admit Date: 07/03/2024 5:01 AM Admit Diagnosis: No admission diagnoses are documented for this encounter. Subjective History of Present Illness: This is a 28 y.o. male w/ PMH of HIV (CD4 169 May, pt endorses not taking ART therapy 2/2 depression), TIAs, MAURI (amphetamine), neurosyphilis, and borderline personality disorder who presented to the ED as a code stroke 2/2 difficulty with coordination and right leg weakness/numbness. Patient also endorsing that he is unable to see his superior field OD. Pt endorses methamphetamine use today after which he developed his symptoms. Past ocular history: (patient may not be a reliable historian) No personal history of eye pathologies, surgeries, past trauma No family history of glaucoma, blindness, or other inherited ophthalmological diseases. Review of Systems: Ocular ROS as above Unless noted in HPI all other systems negative. Past Ocular History: As above Past Medical History: Diagnosis Date Anal warts Borderline personality disorder (CMS/HCC) ([facility]) Depression prior suicide attempts (10/2023, 02/2024) Depression with suicidal ideation HIV (human immunodeficiency virus infection) ([facility]) HIV (human immunodeficiency virus infection) ([facility]) Dx 2018 Methamphetamine use disorder, moderate, in early remission ([facility]) Neuropathy (CMS/HCC) PTSD (post-traumatic stress disorder) Syphilis [...] Never Substance and Sexual Activity Drug use: Yes Frequency: 3.0 times per week Types: Methamphetamines Comment: relapsed - meth used 3 days ago Sexual activity: Defer Partners: Male Alcohol Use: Patient Unable To Answer (05/03/2024) Received from [facility] Health AUDIT-C Frequency of Alcohol Consumption: Patient unable to answer Average Number of Drinks: Patient unable to answer Frequency of Binge Drinking: Patient unable to answer Home Meds: No current outpatient medications on file. (Ophthalmic) Current Outpatient Medications (Other) Medication Sig ARIPiprazole (ABILIFY) 10 mg tablet Take 1 tablet (10 mg total) by mouth daily for 15 days benzonatate (TESSALON) 100 mg capsule Take 1 capsule (100 mg total) by mouth 3 (three) times a day as needed for cough fekzhrgvjfr-qnahysieyqzxz-ibmaodyhz (BIKTARVY) 50-200-25 mg tablet Take 1 tablet by mouth daily buPROPion XL (WELLBUTRIN XL) 150 mg 24 hr tablet Take 1 tablet (150 mg total) by mouth daily doxepin (SINEquan) 25 mg capsule Take 1 capsule (25 mg total) by mouth nightly for [address] (CYMBALTA) 60 mg capsule Take 1 capsule (60 mg total) by mouth daily for 15 days gabapentin (NEURONTIN) 100 mg capsule Take 1 capsule (100 mg total) by mouth 3 (three) times a day hydrOXYzine (ATARAX) 50 mg tablet Take 1 tablet (50 mg total) by mouth every 6 (six) hours as needed for anxiety for up to 15 days ibuprofen (ADVIL,MOTRIN) 600 mg tablet Take 1 tablet (600 mg total) by mouth every 6 (six) hours asneeded loperamide (IMODIUM) 2 mg capsule Take 1 capsule (2 mg total) by mouth as needed for diarrhea sulfamethoxazole-trimethoprim (BACTRIM DS) 800-160 mg per tablet Take 1 tablet (160 mg of trimethoprim total) by mouth 3 (three) times a week traZODone (DESYREL) 50 mg tablet Take 1 tablet (50 mg total) by mouth nightly as needed Current Hospital Meds: No current facility-administered medications for this encounter. (Ophthalmic) Current Facility-Administered Medications (Other) Medication Route sodium chloride 0.9% flush 125 mL intravenous Objective Physical Exam: Vitals: 07/03/24 0729 BP: Pulse: 72 Resp: 16 SpO2: Base Eye Exam Visual Acuity (Snellen - Linear) Right Left Near cc at least 20/70-1 phni at least 20/200 phni Pt unreliable, smacking lips, constant jerky movements, difficulty with words, falling asleep, patient making chronic reptetive movements and sounds. Patient unwilling to attempt lower on chart Tonometry (Tonopen, 7:17 AM) Right Left Pressure 16 14 Pupils Dark Light Shape React APD Right 4 2 Round Brisk None Left 4 2 Round Brisk None Visual Castro Left Right Restrictions Total superior temporal, superior nasal deficiencies Very unreliable CVF, repeated exam several times with very disparate results. At one point patient was saying they could not see the top half of my finger OD, no matter which quadrant of his vision Iwas testing. Extraocular Movement Appears grossly full . Patient participating poorly on exam Dilation Both eyes: 1.0% Mydriacyl, 2.5% Phenylephrine @ 7:15 AM Additional Tests Color Right Left Ishihara 15/15 15/15 Slit Lamp and Fundus Exam Slit Lamp Exam Right Left Lids/Lashes Normal Normal Conjunctiva/Sclera White and quiet White and quiet Cornea Diffuse SPEE OD>OS Diffuse SPEE OD>OS Anterior Chamber Deep and quiet Deep and quiet Iris Round and reactive Round and reactive Lens NS NS Slit lamp exam limited as patient unable to position correctly, he was constantly falling asleep and unable to maintain a fixed gaze. Fundus Exam Right Left Disc Normal Normal C/D Ratio 0.5 0.5 Macula Normal Normal Vessels Normal Normal Periphery Possible PVD inferotemporally, otherwise normal Normal Lab/Radiology/Diagnostic Review: Lab Results Component Value Date WBC 5.3 07/03/2024 HGB 12.2 (L) 07/03/2024 HCT 37.0 (L) 07/03/2024 MCV 77.5 (L) 07/03/2024 LABPLAT 183 07/03/2024 CTA/CTP Rapid Stroke (C) Result Date: 07/03/[address] evidence of stroke. 2. No significant carotid artery stenosis. The Critical results of thenon-contrast head CT were discussed with Tonia Roberts by Dr. Rubin on 07/03/24 at 5:19AM The Critical results of the CTA/CTP were discussed with Tonia Roberts by Dr. Rubin on 07/03/24 at 5:26AM Dictated by: Yee Rubin MD Assessment/Plan # Subjective Complaint of Superior Vision Loss OD without Objective Correlating Findings - Patient poorly participating on exam, pt intoxicated, slurring speech, unable to complete sentences, multiple physical and vocal ticks, somnolent, incontinent - VA at least 20/70-1 OD and 20/200 OS. CV full. IOP WNL. No APD. CVF unreliable (see above), but possible deficit superiorly OD. EOM grossly intact, but unable to reliably assess (see above) - Anterior exam with diffuse SPEE OD>OS, likely from methamphetamine use - DFEx w/ Possible PVD inferotemporally OD and enlarged C/D OU, but otherwise WNL. No overt signs of ocular syphilis or other infection. No RD or RT on exam. No retinal whitening or signs of BRAO, nodisc edema/pallor or c/f NAION. - Nothing on globe exam to explain patient symptoms. CTA w/o acute findings Recommendations: - No acute interventions per ophthalmology - Refresh KELLI TID OU - Given vision symptoms without correlating objective explanation on exam, would consider MRI Brainand Orbit w/ and w/o (particularly if vision symptoms persist on ED exam when patient is more sober) - Consider neurology consult to further w/u patient vision complaints - We will follow-up OP for further testing, this was discussed at length with the patient - Please page ophthalmology for any new or worsening eye or visual symptoms including worsening vision, eye pain, redness, photosensitivity, discharge, or new flashes of light or showers of floaters. Ophthalmology outpatient follow-up: Our clinic schedulers will call the patient after discharge using the contact information available in [employer]. Please include the [facility] number ([phone]) in the patient's discharge paperwork. Candida Grullon MD Ophthalmology Resident, PGY-2 07/03/2024 8:32 AM - Patient seen with Dr. Mendez PGY-4 - Questions should be directed to the on-call ophthalmology resident via [employer] or [email or web address] (Pager ID [phone] for [facility]) - This consult is NOT complete without attending attestation and/or cosign. - Please note that bedside hospital exams have several limitations that can affect reliability and make it difficult to discern both short-term and long- term visual outcomes including limitations of bedside equipment, inability to control lighting conditions, varying participation, changes in clinical status, and lack of ancillary tests that are available in a clinic setting. Helpful acronym definitions for interpreting an ophthalmology note: AC = anterior chamber; APD = (relative) afferent pupillary defect; BRAO = branched retinal artery occlusion; BRVO = branched retinal vein occlusion; CDR = cup-to-disc ratio; CF = count fingers vision; CRAO = central retinal artery occlusion; CRVO = central retinal vein occlusion; CWS = cotton wool spot; DBH = dot blot hemorrhage; GTTS = drops; HM = hand motion vision; IOL = intraocular lens; IOP = intraocular pressure; K = cornea; LP = light perception vision; NAION = non-arteritic ischemic optic neuropathy; NLP = no light perception vision; NPDR = nonproliferative diabetic retinopathy; OD = right eye; OS = left eye; PDR = proliferative diabetic retinopathy; PH = pinhole visual acuity; POAG= primary open angle glaucoma; RT = retinal tear; RD = retinal detachment; KELLI = ointment; VA = visual acuity; VH = vitreous hemorrhage; VF = visual field Cosigned by Lloyd Benítez MD PhD at 07/03/2024 10:31 PM ENVIRONMENTAL DIRECTOR RONMENTAL DIRECTOR RONMENTAL DIRECTOR RONMENTAL DIRECTOR Associated attestation - Lloyd Benítez MD PhD - 07/03/2024 10:31 PM ENVIRONMENTAL DIRECTOR The resident/fellow saw and examined the patient, we discussed their findings, and I am in agreement with the plan based on the discussion with the resident/fellow. I did not personally examine the patient. * Tonia Lawler MD - 07/03/2024 6:11 AM CSTAssociated Order(s): IP CONSULT TO NEUROLOGY Hyperacute Stroke Team - [facility] Consult Note Initial information: Narrative: Mr. Chase is a 28 y.o. male who presents as an acute stroke page. Requesting provider: Brendan Cortes MD Reason for consult: Acute stroke suspected Page time (24h format): 07/03/2024 4:54 Last known well Date Last Known Well : 07/02/24 Time Last Known Well: 1500 Discovery of Symptoms - Date: 07/02/24 Discovery of Symptoms - Time: 1600 (07/03/24 0517) Chief complaint: blurry vision, numbness, and aphasia HPI: Phil Chase is a 28 y.o. male with a hx of HIV (CD4 230 03/18/2024, Viral load undetectable 02/26/2024),stimulant use disorder (amphetamine type),history of TIA's, neurosyphilis, and borderline personality disorder who presented to the ED as a code stroke. The patient's LKW was on 07/02 at 15:00. He says that he developed sudden onset blurry vision in the superior hemisphere of his right eye that developed before he used methamphetamine. After using methamphetamine, he developed numbness in his right arm. The patient has chronic leg weakness, but he feels that he has generalized weakness. Stroke risk factors: Stroke/TIA History and Substance Abuse Notable home meds (i.e., anticoagulation): N/a Past medical history, past surgical history, current medications, allergies, family history and social history were reviewed, and are noted at the end of this note. Vitals: 07/03/24 0531 BP: 134/89 Pulse: 81 Resp: 16 SpO2: 98% NIH Stroke Scale Interval: Baseline Level of Consciousness (1a.): Alert, keenly responsive LOC Questions (1b.): Answers both questions correctly LOC Commands (1c.): Performs both tasks correctly Best Gaze (2.): Normal Visual (3.): Partial hemianopia Facial Palsy (4.): Normal symmetrical movements Motor Arm, Left (5a.): No drift Motor Arm, Right (5b.): No drift Motor Leg, Left (6a.): No drift Motor Leg, Right (6b.): Drift Limb Ataxia (7.): Absent Sensory (8.): Swfr-dr-jznamafu sensory loss, patient feels pinprick is less sharp or is dull on theaffected side, or there is a loss of superficial pain with pinprick, but patient is aware of being touched Best Language (9.): Kldi-kj-xzsdaclv aphasia Dysarthria (10.): Normal Extinction and Inattention (11.) (Formerly Neglect): Visual, tactile, auditory, spatial, or personal inattention or extinction to bilateral simultaneous stimulation in one of the sensory modalities Total: 5 (07/03/24528) José labs (FSBG, INR, platelets, Xa): Lab Results Lab Value Date/Time GLUCOSE 129 07/03/2024 0513 GLUCOSE 133 07/03/2024 0509 INR 2.0 (H) 07/03/2024 0517 INR 1.04 06/02/2024 0935 HCT findings: TA/CTP Rapid Stroke (C) [[id number]] Collected: 07/03/24532 Order Status: Completed Updated: 07/03/24656 Narrative: EXAMINATION: 1. Computed tomography angiography (CTA) [...] separate workstation for processing by RAPID software ([employer]) to produce automated calculations of the estimated [...] Artery: no occlusion or significant stenosis L STARCH MANGLE TENDER: no occlusion or significant stenosis R STARCH MANGLE TENDER: no occlusion or significant stenosis No cerebral [...] at 5:26AM Dictated by: Yee Rubin MD Thrombolytic (alteplase/tenecteplase) decision: Thrombolytic decision: NO GO. Rationale: Last known well greater than 4.5 hours ago and Diagnosis is not likely stroke, more likely a stroke mimic Thrombolytic decision time (24 hour format): 5:16 Pre-Thrombolytic NIHSS: N/A; patient did not receive lytics For Inpatient Stroke Codes: Pre-Thrombolytic NIHSS time (or N/A): N/A, lytics not given or not an inpatient code Thrombolytic bolus time (24 hour format): N/A, thrombolytics not given BP prior to thrombolytic bolus: N/A, thrombolytics not given Reason for thrombolytic delay (>30 mins hbxb-im-ybulpn, if applicable): N/A, patient did not receive thrombolytics Thrombectomy decision: LVO on CTA?: No CTA read time/fellow: time: 5:33, fellow: Dr. Rubin CTP: Core volume: 0 mL Penumbra volume: 0 mL Baseline functional status: MRS 1: The patient has symptoms but no significant disability; able to carry out all activities. Intervention: NO-GO: Rationale: NIHSS <6, CTA performed with no LVO, and Last known well >24 hours ago Neuro-IR contact time: N/A, Patient NO-GO for intervention Reason for thrombectomy attempt delay (>90 minutes zbnk-gd-kjxbtmkk, if applicable): N/A: Patient did not receive thrombectomy or no significant delays Hyperacute MRI (Reminder to Call MRI department before going to MRI suite in order to notify MRI team of patient arrival): Hyperacute MRI Indication: Not performed Findings: N/A, not performed Wake-up stroke: Time of symptom discovery (24h format): N/A, patient not a candidate for WAKE-UP protocol DWI-FLAIR mismatch: N/A, patient not a candidate for protocol MRI read time/fellow: N/A, patient was not a candidate for protocol Physical Examination: BP 134/89 Pulse 81 Resp 16 Wt 69 kg (152 lb 1.6 oz) SpO2 98% BMI 20.63 kg/m?? GEN: NAD HEENT: NC/AT, MMM CV: Regular rate and rhythm PULM: No increased work of breathing ABD: Soft, nontender, nondistended EXT: Warm and well-perfused SKIN: Warm and dry Neurologic Examination: Mental status: Awake, Alert, Oriented x 3 (person, place and time) Speech: Normal fluency, repetition, and comprehension. Cranial Nerves: II: Pupils equal and reactive bilaterally, endorsing blurry vision in superior quadrant of right eye, double-vision that is horizontal in both eyes, III/IV/: Extraocular movements intact with nystagmus towards the left, V: Facial sensation normal bilaterally, VII: Facial muscle activation normal bilaterally, VIII: hearing intact bilaterally, and IX/X/XII: palate, uvula, and tongue midline Motor: Normal bulk and tone of the four extremities. >3/5 strength in the bilateral upper and lower extremities, with drift in the RLE Reflexes: Deferred Sensory: Normal sensation to light touch in the four extremities, except for decreased perception of sensation in the RUE Coordination Gait: Finger to nose intact bilaterally without ataxia Inattention: Extinction to the sensory modality in the RLE Other: Assessment & Plan: Phil Chase is a 28 y.o. male with a hx of HIV (CD4 230 03/18/2024, Viral load undetectable 02/26/2024),stimulant use disorder (amphetamine type),history of TIA's, neurosyphilis, and borderline personality disorder who presented to the ED as a code stroke. The patient's LKW was on 07/02 at 15:00. He says that he developed sudden onset blurry vision in the superior hemisphere of his right eye. He reports that he used methamphetamine today and developed numbness in his right arm. The patient has chronic leg weakness, but he feels that he has generalized weakness. Physical shows blurry visionin superior quadrant of right eye, double-vision that is horizontal in both eyes, extraocular movements intact with nystagmus towards the left, drift in the RLE, decreased perception of sensation in the RUE, and extinction to the sensory modality in the RLE. NIHSS was 5. Head CT and CTA did not show intracranial abnormalities. Patient was a NO-GO for TNK as this is likely a stroke mimic and he was OOW. NO-GO for thrombectomy as NIHSS <6, no LVO on CTA, and LKW was >24 hours ago. This patient's nystagmus is likely secondary to methamphetamine ingestion, and the patient's RLE weakness and paresthesias have been observed in prior presentations, so they could be considered chronic. However, the patient's presentation is concerning for new blurriness of vision in the superior quadrant of the right eye that developed even before using amphetamine. This is concerning for CRAO, or an infiltrative/ inflammatory condition, especially in the setting of past medical history of neurosyphilis. Recommendations: 1. Consult to ophthalmology 2. Obtain brain MRI including orbits W WO contrast to assess for structural abnormalities Disposition: To the Ed's discretion Case discussed with attending: Con Figueroa MD The [facility]STE team will sign off, and the neurology consult team will continue to follow. For acute neurologic change and repeat stroke assessment, please activate the acute stroke pager at [phone].For a non-emergent consult to neurology, please call the consult cellphone at [phone]. Tonia Escudero MD 07/03/2024, 6:57 AM Subjective Past Medical History: Past Medical History: Diagnosis Date Anal warts Borderline personality disorder (CMS/HCC) (HCC) Depression prior suicide attempts (10/2023, 02/2024) Depression with suicidal ideation HIV (human immunodeficiency virus infection) (HCC) HIV (human immunodeficiency virus infection) (HCC) Dx 2018 Methamphetamine use disorder, moderate, in early remission (HCC) Neuropathy (CMS/HCC) PTSD (post-traumatic stress disorder) Syphilis (acquired) Rx'd with 3 IM doses of Penicillni per patient Past Surgical History: Past Surgical History: Procedure Laterality Date LUMBAR PUNCTURE WO INJECTION, DIAGNOSTIC N/A 10/12/2023 Medications: No current facility-administered medications on file prior to encounter. Current Outpatient Medications on File Prior to Encounter Medication Sig Dispense Refill ARIPiprazole (ABILIFY) 10 mg tablet Take 1 tablet (10 mg total) by mouth daily for 15 days 15 tablet 0 benzonatate (TESSALON) 100 mg capsule Take 1 capsule (100 mg total) by mouth 3 (three) times a day as needed for cough 15 capsule 0 kcpiilktcac-hohtbrvepqczr-tyhjxzxop (BIKTARVY) 50-200-25 mg tablet Take 1 tablet by mouth daily 30 tablet 3 buPROPion XL (WELLBUTRIN XL) 150 mg 24 hr tablet Take 1 tablet (150 mg total) by mouth daily doxepin (SINEquan) 25 mg capsule Take 1 capsule (25 mg total) by mouth nightly for 15 days [address] (CYMBALTA) 60 mg capsule Take 1 capsule (60 mg total) by mouth daily for 15 days 15 capsule 0 gabapentin (NEURONTIN) 100 mg capsule Take 1 capsule (100 mg total) by mouth 3 (three) times a day 60 capsule 0 hydrOXYzine (ATARAX) 50 mg tablet Take 1 tablet (50 mg total) by mouth every 6 (six) hours as needed for anxiety for up to 15 days 30 tablet 0 ibuprofen (ADVIL,MOTRIN) 600 mg tablet Take 1 tablet (600 mg total) by mouth every 6 (six) hours asneeded loperamide (IMODIUM) 2 mg capsule Take 1 capsule (2 mg total) by mouth as needed for diarrhea 60 capsule 0 sulfamethoxazole-trimethoprim (BACTRIM DS) 800-160 mg per tablet Take 1 tablet (160 mg of trimethoprim total) by mouth 3 (three) times a week 12 tablet 0 traZODone (DESYREL) 50 mg tablet Take 1 tablet (50 mg total) by mouth nightly as needed Allergies: No Known Allergies Family History: Family History Problem Relation Age of Onset Suicide Completion Father Other (overdose) Father Hypertension Maternal Grandmother Diabetes type II Maternal Grandmother Social History: Social History Tobacco Use Smoking status: Former Types: Cigarettes Passive exposure: Current Smokeless tobacco: Never Substance and Sexual Activity Drug use: Yes Frequency: 3.0 times per week Types: Methamphetamines Comment: relapsed - meth used 3 days ago Sexual activity: Defer Partners: Male Alcohol Use: Patient Unable To Answer (05/03/2024) Received from [facility] AUDIT-C Frequency of Alcohol Consumption: Patient unable to answer Average Number of Drinks: Patient unable to answer Frequency of Binge Drinking: Patient unable to answer Review of Systems: A complete review of systems was performed including symptoms pertaining to the following systems: constitutional, cardiovascular, respiratory, gastrointestinal, genitourinary, musculoskeletal, neurological, psychiatric, endocrine, immunologic, integumentary, hematological, eyes, and ears, nose, nelson th, and throat. All systems were negative except as noted in the History of Presenting Illness (HPI). Cosigned by Aleksey Figueroa MD at 07/03/2024 10:44 AM ENVIRONMENTAL DIRECTOR RONMENTAL DIRECTOR RONMENTAL DIRECTOR RONMENTAL DIRECTOR RONMENTAL DIRECTOR Associated attestation - Aleksey Figueroa MD - 07/03/2024 10:44 AM ENVIRONMENTAL DIRECTOR Attending Documentation: I have seen and examined the patient on 07/03/24. Assessment/plan: Mr. Chase is a 28 year old with h/o HIV, stimulant use (amphetamine), TIAs neurosyphilis and personality disorder presenting with right eye blurred vision, specifically on the upper hemisphere , which worsened after amphetamine. Possible BRAO in the setting of the vasocontrictor use, exam otherwise notable for choreoathetoid movements as well as possible tardive dyskinesia, both with unknown chronicity. Agree with brain MRI with orbits and ophthalmology exam. I discussed findings diagnosis and management with Dr. Kota Dia. I have reviewed and discussed the above note with the resident/fellow and agree with the findings and plan as documented. Aleksey Figueroa MD, MSc documented in this encounter ED Notes * Rafa Billings MD - 07/03/2024 6:03 AM CST error Rafa Billings MD 07/03/24 0612 RONMENTAL DIRECTOR RONMENTAL DIRECTOR * Trish Morales MD - 07/03/2024 6:02 AM CST HPI Chief Complaint Patient presents with Stroke Patient is a 28-year-old male with past medical history of TIA, borderline personality disorder, HIV (reports not taking medications for 3 weeks), methamphetamine use, transverse myelitis, and neurosyphilis who presents for evaluation for increased numbness, and jumbling words, and tingling to the right side of his body. Patient was called as a code stroke initially. Determined to be in no go stroke. Patient reports meth use at 5:30 p.m. yesterday. Denies any alcohol use or other drug use. Patient has additional symptoms include body aches all over, cough with some sputum production, double vision, and decreased vision to superior right eye field. Patient reports his vision changes are simil ar to his presentation with syphilis previously. Patient History: Patient Active Problem List Diagnosis Date Noted Intentional benzodiazepine overdose, initial encounter ([facility]) 06/02/2024 Dental abscess 04/04/2024 Borderline personality disorder ([facility]) ([facility]) 03/03/2024 Neutropenia ([facility]) 03/03/2024 [place] 03/03/2024 Suicide attempt ([facility]) 02/24/2024 Lower extremity pain, right 02/24/2024 Stimulant use disorder 02/24/2024 Suicide ideation 01/29/2024 Cannabis use disorder, severe ([facility]) 01/26/2024 Routine general medical examination at a health care facility 01/26/2024 PTSD (post-traumatic stress disorder) 10/12/2023 Vertigo 10/11/2023 Unspecified mood disorder ([facility]) 10/10/2023 HIV disease ([facility]) ([facility]) 10/03/2023 Syphilis 10/03/2023 Inguinal hernia 10/03/2023 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[facility]) 10/03/2023 Plaque psoriasis 10/03/2023 Methamphetamine use disorder, moderate ([facility]) 10/03/2023 Borderline personality disorder, rule out other organic causes of unusual pEX/MSE 10/02/2023 HIV (human immunodeficiency virus infection) ([facility]) 10/30/2022 Skin lesion 10/30/2022 Painless rectal bleeding 10/30/2022 Depressive disorder 10/30/2022 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 Condyloma 10/29/2020 Past Medical History: Diagnosis Date Anal warts Borderline personality disorder ([facility]) ([facility]) Depression prior suicide attempts (10/2023, 02/2024) Depression with suicidal ideation HIV (human immunodeficiency virus infection) ([facility]) HIV (human immunodeficiency virus infection) ([facility]) Dx 2018 Methamphetamine use disorder, moderate, in early remission ([facility]) Neuropathy ([facility]) PTSD (post-traumatic stress disorder) Syphilis [...] History Encounter Data from: 03/01/24 Enc Dept: [facility] Born and raised: [place], moved to [facility] when 8 yo Currently lives: inpatient substance abuse rehab, pt says at [facility], but consult note says at [facility] Feels safe: yes Access to firearms: no currently while at inpatient substance abuse rehab Educ ation: per pt he graduated HS and college with a degree in computer science Work: Not currently employed, 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 Review of Systems Review of Systems All other systems reviewed and are negative. Physical Exam ED Triage Vitals Temp Pulse Resp BP SpO2 -- 07/03/24 0520 07/03/24 0520 07/03/24 0520 07/03/24 0531 81 16 134/89 98 % Temp src Heart Rate Source Patient Position BP Location FiO2 (%) -- 07/03/24 0520 -- -- -- Monitor Height Height Method Weight Weight Method -- -- 07/03/24 0503 07/03/24 0531 69 kg (152 lb 1.6 oz) EMS stretcher scale Physical Exam Vitals and nursing note reviewed. Constitutional: General: He is not in acute distress. Appearance: He is well-developed. HENT: Head: Normocephalic and atraumatic. Eyes: Conjunctiva/sclera: Conjunctivae normal. Cardiovascular: Rate and Rhythm: Normal rate and regular rhythm. Heart sounds: No murmur heard. Pulmonary: Effort: Pulmonary effort is normal. No respiratory distress. Breath sounds: Normal breath sounds. Abdominal: Palpations: Abdomen is soft. Tenderness: There is no abdominal tenderness. Musculoskeletal: General: No swelling. Cervical back: Neck supple. Skin: General: Skin is warm and dry. Capillary Refill: Capillary refill takes less than 2 seconds. Neurological: Mental Status: He is alert. Comments: Decreased sensation to right lateral leg, decreased strength to right leg (chronic s/p TIA), reports of right upper eye field changes. NIHSS of 5 Psychiatric: Mood and Affect: Mood normal. MDM NIH Score Interval: Baseline Level of Consciousness [...] Inattention (11.) (Formerly Neglect): 1 Total: 5 Medical Decision Making Patient is a 28-year-old male with past medical history of TIA, HIV (not taken his medications in 3weeks), neurosyphilis, transverse myelitis, and methamphetamine use who presents for evaluation of it sensory changes over right limb, journaling words, and vision changes. He was initially code stroke, determined to be in no go. Vital signs stable. Exam notable for NIHSS of 5. Patient has obtainedCT head and code stroke workup. Neurology requesting ophthalmology consult for patient's vision changes but is otherwise comfortable with patient discharging. Plan for MRI brain and orbits w/ and w/o. Likely discharge pending ophthalmology recommendations. Amount and/or Complexity of Data Reviewed Labs: ordered. Radiology: ordered. ECG/medicine tests: ordered. Risk OTC drugs. Decision regarding hospitalization. Attending Summary of Care ED Course as of 07/03/24 1417 Time: 07/03 522 Comment: Patient is a 28-year-old male with histories of TIA, borderline personality disorder, methamphetamine use, transverse myelitis, persistent peripheral neuropathy who is presenting to the ED for stroke alert. Patient notes that he was walking home from work he noticed increased numbness and t ingling to the right side of his body. Also stating some visual changes and aphasia. States last known well was 1 hour prior to arrival. Quick chart review shows that patient has been here over 2 times in the past week for the same symptoms of numbness tingling on the right side of his body. Noted to be his chronic peripheral neuropathy. During these evaluations, patient has unreliable accounts of his methamphetamine use. Today stating he has not used in 8 months but previously stating he would use 1 vs 4 days ago at visits that were 1 day apart. There was concern for unreliable history. Due to this, negative head CT and nothingobvious on CT a CTP, patient is a poor candidate for TNK and we will hold off at this time. We believe that this is more likely a stroke mimic. Patient would not be a candidate for thrombectomy for the same reason. By: Cuco Christy MD Time: 07/03 614 Comment: Discussed patient with ophthalmology who will see patient. By: Trish Morales MD Time: 07/03 852 Comment: Ophthalmology not recommending any acute intervention per their evaluation. Recommend following neurology recs along with obtaining MRI Brain with/without orbits along with refresh eye dropsTID. Will follow patient outpatient. By: Nando Azul MD Visual loss HIV infection, unspecified symptom status (HCC) Hx of transient ischemic attack (TIA) Trish Morales MD Resident 07/03/24 1418 Cosigned by Rafa Billings MD at 07/03/2024 5:26 PM ENVIRONMENTAL DIRECTOR RONMENTAL DIRECTOR RONMENTAL DIRECTOR Associated attestation - Rafa Billings MD - 07/03/2024 5:26 PM ENVIRONMENTAL DIRECTOR I have seen and examined the patient on 07/03/24. I agree with the findings and plan of care as documented by the resident except as noted. * Rafa Billings MD - 07/03/2024 5:51 AM CST Images from the original note were not included. NIH STROKE SCALE SCORE TOTAL SCORE = 4 Date/Time: 07/03/2024 5:52 AM Score 1A Level of Consciousness 0 0= Alert, keenly responsive 1= Not alert but arousable by minor stimulation to obey answer or respond 2= Not alert, requires repeated stimulation to attend or is obtunded and requires strong or painfulstimulation to make movements (not stereotyped) 3= Responds only with reflex motor or autonomic effects or totally unresponsive, flaccid and arreflexic Score 1B LOC Questions (i.e. what is your age, what is the month) 0 0= Answers both questions correctly 1= Answers one questions correctly 2= Answers neither question correctly Score 1C LOC Commands (i.e. close your eyes, make a fist) 0 0= Performs both tasks correctly 1= Performs one task correctly 2= Performs neither task correctly Score 2 Best Gaze (only horizontal gaze tracking) 0 0= Normal 1= Partial gaze is abnormal in one or both eyes but forced deviation or total gaze paresis is not present 2= Forced gaze or total gaze paresis not overcome by the oculocephalic maneuver Score 3 Visual 1 0= No visual loss 1= Partial hemianopia 2= Complete hemianopia 3= Bilateral hemianopia (blind not including cortical blindness) Score 4 Facial Palsy 0 0= Normal symmetric movements 1= Minor paralysis (flattened nasolabial fold, asymmetry on smiling) 2= Partial paralysis (total or near-total paralysis of lower face) 3= Complete paralysis of one or both sides (absence of facial movement in the upper and lower face) Score 5A Motor Arm Left (arms outstretched and palms down) 0 0= No drift; holds limb 90 degrees (if sitting) or 45 degress (if lying) for full 10 seconds 1= Drift; holds limb 90 degrees (if sitting) or 45 degrees (if lying), but drifts down before full 10 seconds, does not hit bed or other support 2= Some effort against gravity, limb cannot get to or maintain (if cued) 90 degrees (if sitting) or45 degrees (if lying), drifts to bed, but has some effort against gravity 3= No effort against gravity, limb falls 4= No movement UN= Amputation or joint fusion Score 5B Motor Arm Right (arms outstretched and palms down) 0 0= No drift; holds limb 90 degrees (if sitting) or 45 degress (if lying) for full 10 seconds 1= Drift; holds limb 90 degrees (if sitting) or 45 degrees (if lying), but drifts down before full 10 seconds, does not hit bed or other support 2= Some effort against gravity, limb cannot get to or maintain (if cued) 90 degrees (if sitting) or45 degrees (if lying), drifts to bed, but has some effort against gravity 3= No effort against gravity, limb falls 4= No movement UN= Amputation or joint fusion Score 6A Motor Leg Left 0 0= No drift, holds leg 30 degrees for full 5 seconds 1= Drift, leg falls by the end of the 5-second period but does not hit the bed 2= Some effort against gravity, leg falls to bed by 5 seconds but has some effort against gravity 3= No effort against gravity, leg falls to bed immediately 4= No movement UN= Amputation or joint fusion Score 6B Motor Leg Right 1 0= No drift, holds leg 30 degrees for full 5 seconds 1= Drift, leg falls by the end of the 5-second period but does not hit the bed 2= Some effort against gravity, leg falls to bed by 5 seconds but has some effort against gravity 3= No effort against gravity, leg falls to bed immediately 4= No movement UN= Amputation or joint fusion Score 7 Limb Ataxia (if weakness, ataxia is only scored if it is present to a greater degree than the weakness) 0 0= Absent 1= Present in one limb 2= Present in two limbs UN= Amputation or joint fusion Score 8 Sensory 1 0= Normal, no sensory loss 1= Mild to moderate sensory loss, patient feels pinprick is less sharp or is dull on the affected side or there is a loss of superficial woodruff with pinprick but patient is aware of being touched 2= Severe to total sensory loss, patient is not aware of being touched in the face, arm or leg Score 9 Best Language 0 0= No aphasia, normal 1= Mild to moderate aphasia, some obvious loss of fluency or facility of comprehension, however makes conversation about provided materials difficult or impossible 2= Severe aphasia, all communication is through fragmentary expression, great need for interference, questioning and guessing by the listener. Range of information that can be exchanged is limited, listener carries burden of communication. Examiner cannot identify materials provided from patient res ponse. 3= Mute, global aphasia, no usable speech or auditory comprehension Score 10 Dysarthria 1 0= Normal 1= Mild to moderate dysarthria, patient slurs at least some words and at worst, can be understood with some difficulty 2= Severe dysarthria, patient's speech is so slurred as to be unintelligible in the absence of or out of proportion to dysphasia, or is mute/anarthric UN= Intubated or other physical barrier Score 11 Extinction and Inattention (formerly neglect) 0 0= No abnormality 1= Visual tactile, auditory, spatial or personal inattention or extinction to bilateral stimulationin one of the sensory modalities 2= Profound levi-inattention/extinction more than one modality NIHSS IMAGES Rafa Billings MD 07/03/24 0600 RONMENTAL DIRECTOR * Rafa Billings MD - 07/03/2024 5:43 AM CST ATTENDING NOTE: Chief Complaint: Stroke Triage Note: Patient presents to ED with complaint of jumbled speech, leg pain and numbness, visionchanges x 1 hour. Hx of TIA. HPI: Phil Chase is a 28 y.o. 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 Did meth at 530p, denies etoh/other drugs. Reports aches all over and some yellow cough several weeks. Denies any metal in body and no claustrophobia. Reportsdouble vision and right eye with upper half VF blurred (had that too with prior TIA). Had syphilis past with similar vision issues months ago. Exam: NIHSS 4 (has BL right leg weakness/dec touch but feels a little worse), right upper VF VL, a/ox3, benign cardiopulm/abd exams, perrl/eomi. Assessment/Plan: Phil Chase is a 28 y.o. male with the aforementioned history/exam findings with: #right upper VF VL/worse right leg weakness/numbness/dysarthria-- has had prior TIA with similar distribution over a month ago, CTA/P w/o ich/defect and no go tpa initially per neuro, request optho eval for VF loss/consider neurosyphilis recurrence, also brain/orbit MRI r/o structural etiology/infection/mass #meth use-- supportive care/fu labs ED DIAGNOSES: 1. Visual loss 2. HIV infection, unspecified symptom status (HCC) 3. Hx of transient ischemic attack (TIA) Medical Decision Making Discussion of management and/or test interpretation with external care provider(s): spoke with optho for eval vision loss right VF upper aspect; spoke with neuro for stroke eval and rec b/orbit MRI Critical Care provided due to threat to life or bodily/organ function: Procedure Critical Care Performed by: Rafa Billings MD Authorized by: Rafa Billings MD Critical care provider statement: As reflected in the history, physical exam, orders, notes, and/or MDM, I was personally present while the patient was critically ill and provided critical care services for 30 minutes, excluding timeinvolved in separately billable procedures. Critical care was necessary to treat or prevent imminent or life- threatening deterioration of the following condition(s): acute cerebrovascular accident (CVA) severe neurologic condition Critical care was time spent by me providing the following: continuous telemetry continuous pulse oximetry interpretation of bedside monitors, imaging, and arterial/venous lab draws serial bedside patient exams frequent neurologic exams decision regarding acute lytic therapy advanced imaging MRI Adjunctive CCM Interventions Provided by the clinician: I provided emergent necessary critical caremedicine services to this patient. I ordered and reviewed test results and/or imaging studies. I spent time discussing the management of this critically ill patient with consultants and the medical staff. I spent time discussing the management and therapeutic options for this critically ill patientwith the patient themselves or with the appropriate designated surrogate decision-maker. I spent time documenting in the medical record. I have seen and examined the patient on 07/03/24. I agree with the findings and plan of care as documented by the resident except as noted. Rafa Billings MD 07/03/24 0635 Rafa Billings MD 07/03/24 0638 RONMENTAL DIRECTOR RONMENTAL DIRECTOR * Brendan Maddox RN - 07/03/2024 5:28 AM CST Bed: [id number] Expected date: Expected time: Means of arrival: Comments: No go stroke Brendan Maddox RN 07/03/24 0528 RONMENTAL DIRECTOR * Leta Alonzo RN - 07/03/2024 5:18 AM CST Patient presents to ED with complaint of jumbled speech, leg pain and numbness, vision changes x 1 hour. Hx of TIA. RONMENTAL DIRECTOR * Chelle Ghotra RN - 07/03/2024 5:01 AM CST Bed: [facility] Expected date: Expected time: Means of arrival: Comments: Code stroke Chelle Ghotra RN 07/03/24 0501 RONMENTAL DIRECTOR documented in this encounter Miscellaneous Notes * ED Procedure Note - Chas Friedman MD - 07/03/2024 8:45 AM ENVIRONMENTAL DIRECTOR Associated Order(s): ECG 12 lead Procedure ECG 12 lead Date/Time: 07/03/2024 8:45 [...] the ED Chas Friedman MD 07/03/24 0847 RONMENTAL DIRECTOR * Significant Event - aCndida Grullon MD - 07/03/2024 7:16 AM ENVIRONMENTAL DIRECTOR Ophthalmology Dilation Note After obtaining clearance from primary team, patient's eyes were dilated by Ophthalmology using tropicamide 1% + phenylephrine 2.5% . Pupils will remain dilated and unreliable for neuro checks for approximately 8-12 hours. Questions should be directed to the on-call ophthalmology resident via [employer] or [email or web address]. Candida Grullon MD 07/03/2024 7:16 AM Ophthalmology Resident, PGY-2 RONMENTAL DIRECTOR * ED Re-evaluation Note - Nando Azul MD - 07/03/2024 7:10 AM CST ED Re-evaluation TRANSITION OF CARE: I, Nando Steele MD, am taking signout from Dr. Morales (Resident) under supervision of my attending physician. I have reviewed all pertinent vital signs, allergies, and history available in the chart. Summary: 28 y.o. male with past medical history of TIA, borderline personality disorder, HIV (reports not taking medications for 3 weeks), methamphetamine use, transverse myelitis, and neurosyphilis who presents for evaluation for increased numbness, and jumbling words, and tingling to the right side of his body. Constant right-sided eye changes Work-up: negative CTA rapid stroke eval; Interventions: Pending: final ophtho recs and MRI Dispo: pending Current visit diagnosis: 1. Visual loss 2. HIV infection, unspecified symptom status (HCC) 3. Hx of transient ischemic attack (TIA) ED Course as of 07/03/24 0855 Time: 07/03 522 Comment: Patient is a 28-year-old male with histories of TIA, borderline personality disorder, methamphetamine use, transverse myelitis, persistent peripheral neuropathy who is presenting to the ED for stroke alert. Patient notes that he was walking home from work he noticed increased numbness and t ingling to the right side of his body. Also stating some visual changes and aphasia. States last known well was 1 hour prior to arrival. Quick chart review shows that patient has been here over 2 times in the past week for the same symptoms of numbness tingling on the right side of his body. Noted to be his chronic peripheral neuropathy. During these evaluations, patient has unreliable accounts of his methamphetamine use. Today stating he has not used in 8 months but previously stating he would use 1 vs 4 days ago at visits that were 1 day apart. There was concern for unreliable history. Due to this, negative head CT and nothingobvious on CT a CTP, patient is a poor candidate for TNK and we will hold off at this time. We believe that this is more likely a stroke mimic. Patient would not be a candidate for thrombectomy for the same reason. By: Cuco Christy MD Time: 07/03 614 Comment: Discussed patient with ophthalmology who will see patient. By: Trish Morales MD Time: 07/03 852 Comment: Ophthalmology not recommending any acute intervention per their evaluation. Recommend following neurology recs along with obtaining MRI Brain with/without orbits along with refresh eye dropsTID. Will follow patient outpatient. By: Nando Azul MD Ali Khan, Abbas, MD Resident 07/03/24 0720 RONMENTAL DIRECTOR * ED Procedure Note - Brendan Cortes MD - 07/03/2024 5:22 AM CSTAssociated Order(s): Critical Care Procedure Critical Care Performed by: Brendan Cortes MD Authorized by: Brendan Cortes MD Critical care provider statement: As reflected in the history, physical exam, orders, notes, and/or MDM, I was personally present while the patient was critically ill and provided critical care services for 20 minutes, excluding timeinvolved in separately billable procedures. Critical care was necessary to treat or prevent imminent or life- threatening deterioration of the following condition(s): severe neurologic condition Critical care was time spent by me providing the following: frequent neurologic exams and decision regarding acute lytic therapy I provided emergent necessary critical care medicine [...] in the medical record. Brendan Cortes MD 07/03/24 0608 RONMENTAL DIRECTOR documented in this encounter Plan of Treatment Scheduled Orders Name Type Priority Associated Diagnoses Orde r Schedule Urinalysis reflex to microscopic and culture Urine Microbiology STAT STAT for 1 Occurrences starting 07/03/2024 until 07/03/2024 documented as of this encounter Procedures Procedure Name Priority Date/Time Associated Diagnosis Comments ECG 12-LEAD STAT 07/03/2024 8:45 AM ENVIRONMENTAL DIRECTOR TROPONIN I HIGH-SENSITIVITY 2-HOUR Timed 07/03/2024 7:25 AM ENVIRONMENTAL DIRECTOR RPR TITER STAT 07/03/2024 7:25 AM ENVIRONMENTAL DIRECTOR RPR STAT 07/03/2024 7:25 AM ENVIRONMENTAL DIRECTOR ED CRITICAL CARE Routine 07/03/2024 5:22 AM ENVIRONMENTAL DIRECTOR CTA/CTP RAPID STROKE Critical/Life-T hreatening 07/03/2024 5:20 AM ENVIRONMENTAL DIRECTOR POCT LACTATE - DEVICE Routine 07/03/2024 5:19 AM ENVIRONMENTAL DIRECTOR POCT PROTHROMBIN TIME, WHOLE BLOOD Routine 07/03/2024 5:17 AM ENVIRONMENTAL DIRECTOR POC BLOOD GAS AND CHEMISTRIES, ARTERIAL Routine 07/03/2024 5:14 AM ENVIRONMENTAL DIRECTOR POCT GLUCOSE DEVICE Routine 07/03/2024 5 :13 AM ENVIRONMENTAL DIRECTOR TROPONIN I HIGH-SENSITIVITY SERIES (BASELINE, 2HR, 4HR, 6HR) STAT 07/03/2024 5:09 AM ENVIRONMENTAL DIRECTOR EGFR STAT 07/03/2024 5:09 AM ENVIRONMENTAL DIRECTOR DIFFERENTIAL AUTO STAT 07/03/2024 5:0 9 AM ENVIRONMENTAL DIRECTOR CBC WITH AUTO DIFFERENTIAL STAT 07/03/2024 5:09 AM ENVIRONMENTAL DIRECTOR APTT STAT 07/03/2024 5:09 AM ENVIRONMENTAL DIRECTOR COMPREHENSIVE METABOLIC PANEL STAT 07/03/2024 5:09 AM ENVIRONMENTAL DIRECTOR documented in this encounter Results * ECG 12-LEAD (07/03/2024 8:45 AM ENVIRONMENTAL DIRECTOR) Narrative [facility] - 07/03/2024 8:45 AM ENVIRONMENTAL DIRECTOR Chas Friedman MD ? 07/03/2024 ??8:47 AM [...] the ED Chas Friedman MD 07/03/24 0847 us Rafa Billings MD ECG ORDERABLES Final Result Performing Organization Address [facility] Co de Phone Number [facility] * (ABNORMAL) RPR Titer Blood (07/03/2024 7:25 AM ENVIRONMENTAL DIRECTOR) Pathologist [facility] RPR qn 1:32(A) Nonreactive Blood 07/03/2024 7:25 AM ENVIRONMENTAL DIRECTOR 07/03/2024 7:36 AM ENVIRONMENTAL DIRECTOR us Rafa Billings MD LAB MICROBIOLOGY - GENERAL ORDERABLES Final Result Performing Organization Address [facility] de Phone Number [facility] Department [place] [address] * (ABNORMAL) RPR Blood (07/03/2024 7:25 AM ENVIRONMENTAL DIRECTOR) RPR Reactive(A ) Nonreactive Blood 07/03/2024 7:25 AM ENVIRONMENTAL DIRECTOR 07/03/2024 7:31 AM ENVIRONMENTAL DIRECTOR Rafa Billings MD LAB MICROBIOLOGY - GENERAL ORDERABLES Final Result Performing Organization Address [facility] Co de Phone Number [facility] Department [place] [address] * Troponin I high-sensitivity 2-hour (07/03/2024 7:25 AM ENVIRONMENTAL DIRECTOR) Trop I hs <4 <=35 ng/L Comment: Interpretive Data For further hscTnI resources including the diagnostic algorithm and an aid in interpretation, copy and paste this link: https://bjhlab.testcatalog.org/show/hsTrop-1 Current Interpretive Data last revised 2020. Trop I hs delta 0 ng/L [facility] Trop I hs interp Insignificant [facility] Blood 07/03/2024 7:25 AM ENVIRONMENTAL DIRECTOR 07/03/2024 7:31 AM ENVIRONMENTAL DIRECTOR Brendan Cortes MD LAB BLOOD ORD ERABLES Final Result [facility] Department [place] [address] * Critical Care (07/03/2024 5:22 AM ENVIRONMENTAL DIRECTOR) Narrative Brendan Cortes MD - 07/03/2024 5:22 AM ENVIRONMENTAL DIRECTOR Brendan Cortes MD ? 07/03/2024 ??6:08 AM [...] CTA/CTP Rapid Stroke (C) (07/03/2024 5:20 AM ENVIRONMENTAL DIRECTOR) Anatomical Region Laterality Modality Head and Neck N/A Computed Tomogra phy 07/03/2024 5:33 AM ENVIRONMENTAL DIRECTOR Impressions 07/03/2024 12:51 PM ENVIRONMENTAL DIRECTOR 1. No CT evidence of stroke. 2. [...] Lio Huynh MD Narrative 07/03/2024 12:51 PM ENVIRONMENTAL DIRECTOR EXAMINATION: 1. Computed tomography angiography (CTA) of [...] separate workstation for processing by RAPID software ([employer]) to produce automated calculations of the estimated [...] Artery: no occlusion or significant stenosis L STARCH MANGLE TENDER: no occlusion or significant stenosis R STARCH MANGLE TENDER: no occlusion or significant stenosis No cerebral [...] separate workstation for processing by RAPID software ([employer]) to produce automated calculations of the estimated [...] Artery: no occlusion or significant stenosis L STARCH MANGLE TENDER: no occlusion or significant stenosis R STARCH MANGLE TENDER: no occlusion or significant stenosis No cerebral [...] Result * POCT lactate (07/03/2024 5:19 AM ENVIRONMENTAL DIRECTOR) Lactate POC i-STAT 1.5 0.7 - 2.2 mmol/L Blood 07/03/2024 5:19 AM ENVIRONMENTAL DIRECTOR 07/03/2024 5:19 AM ENVIRONMENTAL DIRECTOR us Notinfile Unknown LAB POCT ORDERABLES - DEVICE F inal Result [facility] Department [place] [address] * (ABNORMAL) POCT prothrombin time, whole blood (07/03/2024 5:17 AM ENVIRONMENTAL DIRECTOR) PT, POC 23.9(H) 10.6 - 13.5 sec INR, bld, POC 2.0(H) 0.9 - 1.2 [facility] Blood 07/03/2024 5:17 AM ENVIRONMENTAL DIRECTOR 07/03/2024 5:17 AM ENVIRONMENTAL DIRECTOR us Notinfile Unknown LAB POCT ORDERABLES - DEVICE F inal Result Performing Organization Address [facility] Co de Phone Number [facility] Department [place] [address] * (ABNORMAL) POC Blood Gas and Chemistries, Arterial - (07/03/2024 5:14 AM ENVIRONMENTAL DIRECTOR) [facility] K POC 4.9 3.3 - 4.9 mmol/L Comment: Hemolyzed;K+ value may be falsely elevated 1.0-1.7 Interpretive Data Not all point of care methods assess for hemolysis. Confirm with instrument and retest K+ if not consistent with clinical signs and symptoms. Current Interpretive Data was last revised on 2023. Hct, POC 37.0(L) 41.4 - 51.6 % [facility] Total Hb, POC 12.2(L) 13.8 - 17.2 g/dL [facility] Blood 07/03/2024 5:14 AM ENVIRONMENTAL DIRECTOR 07/03/2024 5:14 AM ENVIRONMENTAL DIRECTOR us Notinfile Unknown LAB POCT ORDERABLES - DEVICE F inal Result Performing Organization Address [facility] Co de Phone Number [facility] [place] [address] * POCT glucose (07/03/2024 5:13 AM ENVIRONMENTAL DIRECTOR) [facility] Glucose, POC 129 70 - 199 mg/dL Blood 07/03/2024 5:1 3 AM ENVIRONMENTAL DIRECTOR 07/03/2024 5:13 AM ENVIRONMENTAL DIRECTOR us Notinfile Unknown LAB POCT ORDERABLES - DEVICE F inal Result Performing Organization Address [facility] Co de Phone Number [facility] [place] [employer] [place] [address] * eGFR (07/03/2024 5:09 AM ENVIRONMENTAL DIRECTOR) [facility] eGFR 83 >=60 mL/min/1. 73 m2 Comment: [...] last reviewed 2021. Blood 07/03/2024 5:09 AM ENVIRONMENTAL DIRECTOR 07/03/2024 5:16 AM ENVIRONMENTAL DIRECTOR Rafa Billings MD LAB BLOOD ORDERA BLES Edited Result - Final [facility] Department [place] [address] * Differential, auto (07/03/2024 5:09 AM ENVIRONMENTAL DIRECTOR) Neutrophil abs 3.7 1.5 - 6.5 K/cumm Imm gran abs 0.1 0.0 - 0.1 K/cumm [facility] Lymphocyte abs 0.9 0.8 - 3.3 K/cumm [facility] Monocyte abs 0.6 0.2 - 0.8 K/cumm [facility] Eosinophil abs 0.0 0.0 - 0.5 K/cumm [facility] Basophil abs 0.0 0.0 - 0.1 K/cumm [facility] Neutrophil pct 70.7 % [facility] Comment: Interpretive Data Percent cell count reference ranges are not reported, since discordance with absolute values may lead to misinterpretation of CBC data. Current Interpretive Data was last revised on 2017. Imm gran pct 0.9 % [facility] Comment: Interpretive Data Percent cell count reference ranges are not reported, since discordance with absolute values may lead to misinterpretation of CBC data. Current Interpretive Data was last revised on 2017. Lymphocyte pct 17.4 % [facility] Comment: Interpretive Data Percent cell count reference ranges are not reported, since discordance with absolute values may lead to misinterpretation of CBC data. Current Interpretive Data was last revised on 2017. Monocyte pct 10.4 % [facility] Comment: Interpretive Data Percent cell count reference ranges are not reported, since discordance with absolute values may lead to misinterpretation of CBC data. Current Interpretive Data was last revised on 2017. Eosinophil pct 0.2 % [facility] Comment: Interpretive Data Percent cell count reference ranges are not reported, since discordance with absolute values may lead to misinterpretation of CBC data. Current Interpretive Data was last revised on 2017. Basophil pct 0.4 % [facility] Comment: Interpretive Data Percent cell count reference ranges are not reported, since discordance with absolute values may lead to misinterpretation of CBC data. Current Interpretive Data was last revised on 2017. Blood 07/03/2024 5:09 AM ENVIRONMENTAL DIRECTOR 07/03/2024 5:17 AM ENVIRONMENTAL DIRECTOR us Rafa Billings MD LAB BLOOD ORDERA BLES Final Result [facility] Department [place] [address] * Troponin I high-sensitivity series (baseline, 2hr, 4hr, 6hr) (07/03/2024 5:09 AM ENVIRONMENTAL DIRECTOR) Pathologist [facility] Trop I hs <4 <=35 ng/L Comment: Carri Blue Specimen Interpretive Data For further hscTnI resources including the diagnostic algorithm and an aid in interpretation, copy and paste this link: https://bjhlab.testcatalog.org/show/hsTrop-1 Current Interpretive Data last revised 2020. Blood 07/03/2024 5:09 AM ENVIRONMENTAL DIRECTOR 07/03/2024 5:16 AM ENVIRONMENTAL DIRECTOR Rafa Billings MD LAB BLOOD ORDERA BLES Final Result Performing Organization Address [facility] Co de Phone Number [facility] [place] [employer] [place] [address] * aPTT (07/03/2024 5:09 AM ENVIRONMENTAL DIRECTOR) [facility] aPTT 30 28 - 38 sec Comment: Carri Blue Specimen Interpretive Data Heparin therapeutic range: 66.0 - 100.0 seconds. Range based on correlation with therapeutic heparin activity range of 0.3 - 0.7 Units/mL. Current interpretive data was last revised on 2023. Blood (Blood, Venous) 07/03/2024 5:09 AM ENVIRONMENTAL DIRECTOR 07/03/2024 5:16 AM ENVIRONMENTAL DIRECTOR Narrative [facility] - 07/03/2024 5:31 AM ENVIRONMENTAL DIRECTOR Potential stroke patient. Rafa Billings MD LAB BLOOD ORDERA BLES Final Result Performing Organization Address [facility] Co de Phone Number [facility] Department [place] [place] [address] * (ABNORMAL) Comprehensive metabolic panel (07/03/2024 5:09 AM ENVIRONMENTAL DIRECTOR) [facility] Sodium 137 135 - 145 mmol/L Comment:Carri Blue Specimen Potassium, pl 4.7 3.3 - 4.9 mmol/L [facility] Comment: Hemolyzed; Potassium value may be falsely elevated by as much as 0.6-1.0 mmol/L. ??Suggest redraw and reanalysis. Code Blue Specimen Chloride 102 97 - 110 mmol/L [facility] Comment:Code Blue Specimen CO2 26 22 - 32 mmol/L [facility] Comment:Code Blue Specimen Anion gap 9 2 - 15 mmol/L [facility] Comment:Code Blue Specimen BUN 16 6 - 25 mg/dL [facility] Comment:Code Blue Specimen Creatinine 1.20 0.80 - 1.30 mg/dL [facility] Comment:Code Blue Specimen Glucose 133 70 - 199 mg/dL [facility] Comment: Code Blue Specimen Interpretive [...] 2022. Calcium 8.8 8.5 - 10.3 mg/dL [facility] Comment:Code Blue Specimen Bilirubin, total 0.3 0.1 - 1.2 mg/dL [facility] Comment:Code Blue Specimen Protein, pl 8.3 6.5 - 8.5 g/dL [facility] Comment:Code Blue Specimen Albumin 3.4(L) 3.5 - 5.0 g/dL [facility] Comment:Code Blue Specimen Alk phos 80 40 - 130 Units/L [facility] Comment:Code Blue Specimen ALT 46 7 - 55 Units/L [facility] Comment:Code Blue Specimen AST 102(H) 10 - 50 Units/L [facility] Comment: Hemolyzed; result may be falsely elevated Code Blue Specimen Blood (Blood, Venous) 07/03/2024 5:09 AM ENVIRONMENTAL DIRECTOR 07/03/2024 5:16 AM ENVIRONMENTAL DIRECTOR Narrative [facility] - 07/03/2024 5:55 AM ENVIRONMENTAL DIRECTOR Potential Stroke Patient Rafa Billings MD LAB BLOOD ORDERA BLES Edited Result - Final [facility] Department [place] [address] * (ABNORMAL) CBC with auto differential (07/03/2024 5:09 AM ENVIRONMENTAL DIRECTOR) WBC 5.3 3.8 - 9.9 K/cumm Comment:Code Blue Specimen Hgb 11.6(L) 13.0 - 17.5 g/dL [facility] Hct 36.8(L) 38.9 - 50.3 % [facility] Plt 183 150 - 400 K/cumm [facility] MPV 9.6 9.1 - 12.3 fL [facility] RBC 4.75 4.30 - 5.80 M/cumm [facility] MCV 77.5(L) 81.3 - 96.4 fL [facility] MCH 24.4(L) 27.1 - 33.3 pg [facility] MCHC 31.5(L) 32.3 - 35.7 g/dL [facility] RDW CV 16.7(H) 11.1 - 14.9 % [facility] RDW SD 47.2 35.7 - 48.1 fL [facility] NRBC abs 0.00 0.00 - 0.01 K/cumm [facility] Blood (Blood, Venous) 07/03/2024 5:09 AM ENVIRONMENTAL DIRECTOR 07/03/2024 5:17 AM ENVIRONMENTAL DIRECTOR Narrative [facility] - 07/03/2024 5:24 AM ENVIRONMENTAL DIRECTOR Potential Stroke Patient us Rafa Billings MD LAB BLOOD ORDERA BLES Final Result Performing Organization Address City/[facility]/ZIP Co de Phone Number [facility] Department [place] [address] documented in this encounter Visit Diagnoses Diagnosis Visual loss- Primary Unspecified visual loss HIV infection, unspecified symptom status (HCC) Hx of transient ischemic attack (TIA) documented in this encounter Administered Medications Inactive Administered Medications - up to 3 most recent administrations Medication Order MAR Action Action Date Dose Rate Site ioversoL (OPTIRAY 350) syringe 125 mL 125 mL, intravenous, Once in imaging, contrast, Starting on Lara 07/03/24 at 0517, For 1 dose Contrast Given 07/03/2024 5:19 AM ENVIRONMENTAL DIRECTOR 120 mL polyvinyl alcohol-povidone (REFRESH CLASSIC) 1.4-0.6 % ophthalmic solution 1 drop 1 drop, right eye, 3 times daily, First dose on Lara 07/03/24 at 0900 Given 07/03/2024 10:04 AM ENVIRONMENTAL DIRECTOR 1 drop sodium chloride 0.9% flush 125 mL 125 mL, intravenous, As needed, line care, Starting on Lara 07/03/24 at 0517 Given 07/03/2024 5:19 AM ENVIRONMENTAL DIRECTOR 120 mL documented in this encounter Active and Recently Administered Medications Times are shown in ENVIRONMENTAL DIRECTOR. Scheduled Medication Order 07/01/2024 07/02/2024 07/03/2024 polyvinyl alcohol-povidone (REFRESH CLASSIC) 1.4-0.6 % ophthalmic solution 1 drop 1 drop, right eye, 3 times daily, First dose on Lara 07/03/24 at 0900 1004 (Given - Provid er: Jaswant Infante RN) PRN Medication Order 07/01/2024 07/02/2024 07/03/2024 ioversoL (OPTIRAY 350) syringe 125 mL (COMPLETED) 125 mL, intravenous, Once in imaging, contrast, Starting on Lara 07/03/24 at 0517, For 1 dose 0519 (Contrast Given - Provider: RT Sara) sodium chloride 0.9% flush 125 mL 125 mL, intravenous, As needed, line care, Starting on Lara 07/03/24 at 0517 0519 (Given - Provid er: RT Sara) documented in this encounter Orders Medications Ordered That Prasad ht Not Have Been Administered Count Last Ordered Date First Ordered Date ioversoL (OPTIRAY 350) syringe 125 mL 1 06/2024 Lab Orders Without Results Count Last Ordered D ate First Ordered Date POCT GLUCOSE DEVICE 1 07/03/2024 POCT PROTHROMBIN TIME, WHOLE BLOOD 1 2023 Consult Count Last Ordered Date First Orde red Date IP CONSULT TO NEUROLOGY 1 07/03/2024 IP CONSULT TO OPHTHALMOLOGY 1 07/03/2024 IV Count Last Ordered Date First Orde red Date SALINE LOCK IV 1 07/03/2024 documented in this encounter Care Teams Web Marketing Specialist Relationship Specialty Start Date End Date Mady Sullivan MD [address] [place] [address] PCP - General Infectious Diseases 10/12/23 No, Physician 10/12/23 documented as of this encounter
--- OUTSIDE RECORDS SUMMARY | 2024-08-10 03:32 | XMS_ITS | Encounter Summary ---
Author Organization [facility] Healthcare Address [address] [place] [address] Care Team Providers Care Marketing Database Analyst Name Role Phone Mady Sullivan MD Primary Care Provider No, Physician Unavailable Encounter Details Date Type Department Care Team (Late st Contact Info) Description 07/10/2024 Telephone [facility] [address] [place] [address] Martha Koch [facility] Social History Tobacco Use Types Packs/Day Years Used Date Smoking Tobacco: Former Cigarettes Passive Smoke Exposure: Current Smokeless Tobacco: Never [facility] Utilities Answer Date Recorded In the past 12 months has [facility] [employer], gas, oil, or water [employer] threatened to shut off services in your [...] declined 07/08/2024 How often do you attend pentecostal or taoism serv ices? Patient declined 07/08/2024 Do you belong to any clubs o r organizations such as pentecostal groups, unions, fraternal or athletic groups, or [...] 04/07/2024 [facility] [...] place to sleep or slept in a longterm (including now)? No 10/15/2023 Housing Stability Vital [...] any time in the past 12 m [facility], were you homeless or living in a longterm (including now)? Patient declined 07/08/2024 Personal Safety [...] on file Legal Sex Male 11:02 PM SEARCH ENGINEER Gender Identity Not on file Sexual Orientation [...] 02/24/2024 10:18 AM CDT Hardin, Manda Sherine, COMPUTER FORENSICS INVESTIGATOR * Do you have serious difficulty walking or climbing stairs? Answer Date of Assessment Author No 02/24/2024 10:18 AM CDManda Ibrahim, COMPUTER FORENSICS INVESTIGATOR * Do you have serious difficulty dressing or bathing? Answer Date of Assessment Author No 02/24/2024 10:18 AM CDManda Ibrahimricia, COMPUTER FORENSICS INVESTIGATOR * Because of a physical, mental, or emotional condition, do you have serious difficulty doing errandsalone such as visiting the doctor? Answer Date of Assessment Author No 02/24/2024 10:18 AM CDManda Ibrahimia, COMPUTER FORENSICS INVESTIGATOR documented as of this encounter Mental Status * Because of a physical, mental, or emotional condition, do you have serious difficulty concentrating, remembering, or making decisions? (5 years old or older) Answer Entry Date Author No 02/24/2024 10:18 AM CDManda Ibrahim, COMPUTER FORENSICS INVESTIGATOR documented in this encounter Miscellaneous Notes * Telephone Encounter - Martha Koch RPh - 07/10/2024 1:43 PM CST Transitions of Care Pharmacist Post-Discharge Follow-Up Phone Call Attempted to call Phil Chase to follow-up regarding medication education post-discharge. Patient did not answer. Unable to leave voicemail as no option given. Joanne Koch, ChristinaD, [facility] Clinical Legal Adviser - Transitions of Care CH ENGINEER documented in this encounter Plan of Treatment Not on file documented as of this encounter Visit Diagnoses Not on filedocumented in this encounter Care Teams Marketing Database Analyst Relationship Specialty Start Date End Date Mady Sullivan MD [facility] [place] [address] PCP - General Infectious Diseases 10/12/23 No, Physician 10/12/23 documented as of this encounter
--- OUTSIDE RECORDS SUMMARY | 2024-08-10 03:32 | XMS_ITS | Encounter Summary ---
Author Organization [facility] Healthcare Address [address] [place] [id number] Care Team Providers Care Fermenter Wine Name Role Phone Mady Sullivan MD Primary Care Provider No, Physician Unavailable Encounter Details Date Type Department Care Team (Late st Contact Info) Description 07/29/2024 Telephone [facility] [address] [place] [address] 4[address] [place] [address] Marisol Subramanian Social History Tobacco Use Types Packs/Day Years Used Date Smoking Tobacco: Former Cigarettes Passive Smoke Exposure: Current Smokeless Tobacco: Never [facility] Utilities Answer Date Recorded In the past 12 months has [facility] [employer], gas, oil, or water [employer] threatened to shut off services in your [...] declined 07/08/2024 How often do you attend roman catholic or jewish serv ices? Patient declined 07/08/2024 Do you [...] Date Recorded PHQ-2 Total Score 4 [facility] - [facility]ational Stress Questionnaire Answer Date Recorded [...] or slept in a long-term (including now)? No 10/15/2023 Housing Stability Vital [...] any time in the past 12 m [facility], were you homeless or living in a long-term (including now)? Patient declined 07/08/2024 Personal Safety [...] on file Legal Sex Male 11:02 PM LOSS PREVENTION REPRESENTATIVE Gender Identity Not on file Sexual Orientation [...] 02/24/2024 10:18 AM CDT Hardin, Manda Sherine, HOSPITAL FELLOW * Do you have serious difficulty walking or climbing stairs? Answer Date of Assessment Author No 02/24/2024 10:18 AM CDManda Ibrahim, HOSPITAL FELLOW * Do you have serious difficulty dressing or bathing? Answer Date of Assessment Author No 02/24/2024 10:18 AM CDManda Ibrahim, HOSPITAL FELLOW * Because of a physical, mental, or emotional condition, do you have serious difficulty doing errandsalone such as visiting the doctor? Answer Date of Assessment Author No 02/24/2024 10:18 AM CDManda Ibrahim, HOSPITAL FELLOW documented as of this encounter Mental Status * Because of a physical, mental, or emotional condition, do you have serious difficulty concentrating, remembering, or making decisions? (5 years old or older) Answer Entry Date Author No 02/24/2024 10:18 AM CDManda Ibrahim, HOSPITAL FELLOW documented in this encounter Miscellaneous Notes * Telephone Encounter - Marisol Subramanian - 07/29/2024 2:52 PM CST Attempted call schedule pt neuro appointment, pt number has busy signal PREVENTION REPRESENTATIVE documented in this encounter Plan of Treatment Not on file documented as of this encounter Visit Diagnoses Not on filedocumented in this encounter Care Teams Fermenter Wine Relationship Specialty Start Date End Date Mady Sullivan MD [facility] [address] [address] PCP - General Infectious Diseases 10/12/23 No, Physician 10/12/23 documented as of this encounter
--- OUTSIDE RECORDS SUMMARY | 2024-08-10 03:32 | XMS_ITS | Encounter Summary ---
Author Organization [facility] Healthcare Address [address] [place] [address] Care Team Providers Care Associate Consulting Engineer Name Role Phone Mady Sullivan MD Primary Care Provider No, Physician Unavailable Reason for Visit * Reason Comments Chart Review Encounter Details Date Type Department Care Team ([facility] st Contact Info) Description 06/30/2024 [facility] CHW Eligibility Review [facility] PCM Community Health Worker [address] [place], [place] [id number] [place] [address] [place] [address] Social History Tobacco Use Types Packs/Day Years Used Date Smoking Tobacco: Former Cigarettes Passive Smoke Exposure: Current Smokeless Tobacco: Never [facility] Utilities Answer Date Recorded In the past 12 months has [facility] electric, gas, oil, or water [employer] threatened to shut off services in your [...] often do you attend chur ch or alevism services? Patient unable to answer 06/04/2024 Do you belong to any clubs o r organizations such as mormon groups, unions, fraternal or athletic groups, or [...] Date Recorded PHQ-2 Total Score 4 04/07/2024 [facility] - Occupational Stress Questionnaire Answer [...] or slept in a mcc (including now)? No 10/15/2023 Housing Stability Vital Sign Answer Jerrod e Recorded In the last 12 months, was t here a time when you were not able to pay the mortgage or rent on time? Yes 06/04/2024 In the past 12 months, how m any times have you moved where you were living? 5 06/04/2024 At any time in the past 12 m [facility], were you homeless or living in a mcc (including now)? Yes 06/04/2024 Personal Safety Answer [...] on file Legal Sex Male 11:02 PM CURTAIN CUTTER HAND Gender Identity Not on file Sexual Orientation Not on file Occupation Industry Job Start Date Job End Date unemployed Not on file Not on file Not on file documented as of this encounter Functional Status * Are you deaf or do you have serious difficulty hearing? Answer Date of Assessment Author No 02/24/2024 10:18 AM CDT Hardin, Manda Sherine, TURF GROWER * Are you blind or do you have serious difficulty seeing, even when wearing glasses? Answer Date of Assessment Author No 02/24/2024 10:18 AM CDT Manda Hardin, TURF GROWER * Do you have serious difficulty walking or climbing stairs? Answer Date of Assessment Author No 02/24/2024 10:18 AM CDT Manda Hardin, TURF GROWER * Do you have serious difficulty dressing or bathing? Answer Date of Assessment Author No 02/24/2024 10:18 AM CDT Manda Hardin, TURF GROWER * Because of a physical, mental, or emotional condition, do you have serious difficulty doing errandsalone such as visiting the doctor? Answer Date of Assessment Author No 02/24/2024 10:18 AM CDManda Ibrahim TURF GROWER documented as of this encounter Mental Status * Because of a physical, mental, or emotional condition, do you have serious difficulty concentrating, remembering, or making decisions? (5 years old or older) Answer Entry Date Author No 02/24/2024 10:18 AM CDManda Ibrahim MSW documented in this encounter Progress Notes * Sandra Vann [place] - 06/30/2024 9:03 AM CST Patient not eligible for [facility] CHW program related to exclusion criteria-patient not established in clinic. CHW will not offer enrollment and will resolve encounter. AIN CUTTER HAND documented in this encounter Plan of Treatment Not on file documented as of this encounter Visit Diagnoses Not on filedocumented in this encounter Care Teams Associate Consulting Engineer Relationship Specialty Start Date End Date Mady Sullivan MD [facility] [address] [address] PCP - General Infectious Diseases 10/12/23 No, Physician 10/12/23 documented as of this encounter
--- OUTSIDE RECORDS SUMMARY | 2024-08-10 03:32 | XMS_ITS | Encounter Summary ---
Author Organization [facility] Healthcare Address [address] [place] [address] Care Team Providers Care Cash Accountant Name Role Phone Mady Sullivan MD Primary Care Provider No, Physician Unavailable Encounter Details Date Type Department Care Team (Late st Contact Info) Description 06/13/2024 Telephone [facility] [address] [place] [address] Tj Patel [facility] Social History Tobacco Use Types Packs/Day Years Used Date Smoking Tobacco: Former Cigarettes Passive Smoke Exposure: Current Smokeless Tobacco: Never [facility] Utilities Answer Date Recorded In the past 12 months has [facility] [employer], gas, oil, or water [employer] threatened to shut off services in your [...] How often do you attend chur or sikh services? Patient unable to answer 06/04/2024 Do you belong to any clubs o r organizations such as quaker groups, unions, fraternal or athletic groups, or [...] Date Recorded PHQ-2 Total Score 4 04/07/2024 [facility] - Occupational [...] slept in a care home (including now)? No 10/15/2023 Housing Stability [...] any time in the past 12 m [facility], were you homeless or living in a care home (including now)? 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 Answer Date of Assessment Author No 02/24/2024 10:18 AM CDT HardinMadnaricia, CHISEL WORKER * Do you have serious difficulty dressing or bathing? Answer Date of Assessment Author No 02/24/2024 10:18 AM CDT HardinCynthiaManda Sherine, CHISEL WORKER * Because of a physical, mental, or emotional condition, do you have serious difficulty doing errandsalone such as visiting the doctor? Answer Date of Assessment Author No 02/24/2024 10:18 AM CDT HardinMandaricia, CHISEL WORKER documented as of this encounter Mental Status * Because of a physical, mental, or emotional condition, do you have serious difficulty concentrating, remembering, or making decisions? (5 years old or older) Answer Entry Date Author No 02/24/2024 10:18 AM CDManda Ibrahimia, CHISEL WORKER documented in this encounter Miscellaneous Notes * Telephone Encounter - Tj Patel RPh - 06/13/2024 10:07 AM BAKERY DELIVERER Transitions of Care Pharmacist Post-Discharge Follow-Up Phone Call Pharmacist called Ismaeldorothy Miranda Chase via telephone to review all medications and discuss any questions/concerns since last hospital discharge. Patient did not answer on first phone call attempt. Left patient a voicemail to call back if they have any medication-related questions/concerns. Tj Patel, PharmD, [facility] Clinical Environmental Education Specialist - Transitions of Care RY DELIVERER documented in this encounter Plan of Treatment Not on file documented as of this encounter Visit Diagnoses Not on filedocumented in this encounter Care Teams Cash Accountant Relationship Specialty Start Date End Date Mady Sullivan MD [address] [facility] [address] [place] [address] PCP - General Infectious Diseases 10/12/23 No, Physician 10/12/23 documented as of this encounter
--- OUTSIDE RECORDS SUMMARY | 2024-08-10 03:32 | XMS_ITS | Encounter Summary ---
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 immunoassays are subject to significant false positive rates due to cross-reactivity of non-amphetamine drugs. Confirmatory testing required for definitive results. Current Interpretive Data was last reviewed 2023. Barbiturates, ur Not Detected CutOff 200ng/mL [facility] Comment: Interpretive Data - Barbiturates: ??Samples containing greater than 200 ng/mL secobarbital or other cross-reacting barbiturate compounds are reported as positive. ??False positive and false negative results are possible. Confirmatory testing required for definitive results. Current Interpretive Data was last reviewed 2023. Benzodiazepines, ur Not Detected CutOff 100ng/mL [facility] Comment: Interpretive Data - Benzodiazepines: ??Samples containing [...] Ur Not Detected CutOff 5 ng/mL [facility] Comment: Interpretive Data - Fentanyl: ?? Samples [...] Opiates, ur Not Detected CutOff 300ng/mL [facility] Comment: Interpretive Data - Opiates: ??Samples containing greater than 300 ng/mL morphine or other cross-reacting compounds are reported as positive. ??False positive and false negative results are possible. Confirmatory testing required for definitive results. Current Interpretive Data was last reviewed 2023. Oxycodone, ur Not Detected CutOff 100ng/mL [facility] Comment: Interpretive Data - Oxycodone: ??Samples containing greater than 100 ng/mL oxycodone or other cross-reacting compounds are reported as ??positive. ??False positive and false negative results are possible. Confirmatory testing required for definitive results. Current Interpretive Data was last reviewed 2023. Phencyclidine, ur Not Detected CutOff 25 ng/mL [facility] Comment: Interpretive Data - Phencyclidine: ??Samples containing greater than 25 ng/mL phencyclidine or other cross-reacting compounds are reported as positive. ??False positive and false negative results are possible. Confirmatory testing required for definitive results. Current Interpretive Data was last reviewed 2023. Urine Creatinine 115 mg/dL [facility] Comment: Interpretive Data Urine Creatinine: < 10 mg/dL is extremely dilute = or > 10 but < 20 mg/dL is dilute = or > 20 mg/dL is normal Current Interpretive Data was last revised on 2017. Urine 07/08/2024 5:14 PM MOLECULAR PATHOLOGIST 07/08/2024 5:20 PM MOLECULAR PATHOLOGIST Narrative [facility] - 07/08/2024 6:27 PM MOLECULAR PATHOLOGIST Drug of Abuse screening is performed by immunoassay for medical purposes only. ??This is not to be used for Pain Management purposes. Pardeep Montano MD LAB URINE ORDERABLES Fi nal Result [facility] [place] [address] * eGFR (07/08/2024 5:13 PM MOLECULAR PATHOLOGIST) eGFR >90 >=60 mL/min/1. 73 m2 Comment: [...] last reviewed 2021. Blood 07/08/2024 5:13 PM MOLECULAR PATHOLOGIST 07/08/2024 5:20 PM MOLECULAR PATHOLOGIST us Pardeep Montano MD LAB BLOOD ORDERABLES Fi nal Result Performing Organization Address [facility] Co de Phone Number [facility] Department [place] [address] * (ABNORMAL) T4, free (07/08/2024 5:13 PM MOLECULAR PATHOLOGIST) Free T4 0.87(L) 0.90 - 1.70 ng/dL Blood 07/08/2024 5:13 PM MOLECULAR PATHOLOGIST 07/08/2024 5:20 PM MOLECULAR PATHOLOGIST Narrative [facility] - 07/08/2024 6:31 PM MOLECULAR PATHOLOGIST This test was reflexed from a TSH result. us Pardeep Montano MD LAB BLOOD ORDERABLES Ed ited Result - Final Performing Organization Address City/[facility] Co de Phone Number [facility] Department [place] [address] * Differential, auto (07/08/2024 5:13 PM MOLECULAR PATHOLOGIST) Neutrophil abs 2.6 1.5 - 6.5 K/cumm Imm gran abs 0.0 0.0 - 0.1 K/cumm [facility] Lymphocyte abs 1.5 0.8 - 3.3 K/cumm [facility] Monocyte abs 0.2 0.2 - 0.8 K/cumm [facility] Eosinophil abs 0.1 0.0 - 0.5 K/cumm [facility] Basophil abs 0.0 0.0 - 0.1 K/cumm [facility] Neutrophil pct 58.0 % [facility] Comment: Interpretive Data Percent cell count reference ranges are not reported, since discordance with absolute values may lead to misinterpretation of CBC data. Current Interpretive Data was last revised on 2017. Imm gran pct 0.7 % [facility] Comment: Interpretive Data Percent cell count reference ranges are not reported, since discordance with absolute values may lead to misinterpretation of CBC data. Current Interpretive Data was last revised on 2017. Lymphocyte pct 33.3 % [facility] Comment: Interpretive Data Percent cell count reference ranges are not reported, since discordance with absolute values may lead to misinterpretation of CBC data. Current Interpretive Data was last revised on 2017. Monocyte pct 5.0 % [facility] Comment: Interpretive Data Percent cell count reference ranges are not reported, since discordance with absolute values may lead to misinterpretation of CBC data. Current Interpretive Data was last revised on 2017. Eosinophil pct 2.6 % [facility] Comment: Interpretive Data Percent cell count reference ranges are not reported, since discordance with absolute values may lead to misinterpretation of CBC data. Current Interpretive Data was last revised on 2017. Basophil pct 0.4 % [facility] Comment: Interpretive Data Percent cell count reference ranges are not reported, since discordance with absolute values may lead to misinterpretation of CBC data. Current Interpretive Data was last revised on 2017. Blood 07/08/2024 5:13 PM MOLECULAR PATHOLOGIST 07/08/2024 5:20 PM MOLECULAR PATHOLOGIST Pardeep Montano MD LAB BLOOD ORDERABLES Fi nal Result Performing Organization Address [facility] de Phone Number [facility] Department [place] [address] * Ethanol (07/08/2024 5:13 PM MOLECULAR PATHOLOGIST) Pathologist [facility] Ethanol <10 <=10 mg/dL Comment: Interpretive Data Legal limit of intoxication > or = 80 mg/dL Levels > or = 400 mg/dL are potentially TOXIC. Current interpretive data was last revised on 2018. Blood 07/08/2024 5:13 PM MOLECULAR PATHOLOGIST 07/08/2024 5:20 PM MOLECULAR PATHOLOGIST Pardeep Montano MD LAB BLOOD ORDERABLES Fi nal Result Performing Organization Address [facility] de Phone Number [facility] Department [place] [address] * (ABNORMAL) Thyroid Function [place] (07/08/2024 5:13 PM MOLECULAR PATHOLOGIST) [facility] TSH 4.49(H) 0.30 - 4.20 mcIUnit/mL Blood 07/08/2024 5:13 PM MOLECULAR PATHOLOGIST 07/08/2024 5:20 PM MOLECULAR PATHOLOGIST Pardeep Montano MD LAB BLOOD ORDERABLES Fi nal Result Performing Organization Address [facility] de Phone Number [facility] [place] [address] * (ABNORMAL) Comprehensive metabolic panel (07/08/2024 5:13 PM MOLECULAR PATHOLOGIST) [facility] Sodium 142 135 - 145 mmol/L Potassium, pl 4.5 3.3 - 4.9 mmol/L [facility] Chloride 106 97 - 110 mmol/L [facility] CO2 29 22 - 32 mmol/L [facility] Anion gap 7 2 - 15 mmol/L [facility] BUN 15 6 - 25 mg/dL [facility] Creatinine 1.06 0.80 - 1.30 mg/dL [facility] Glucose 90 70 - 199 mg/dL [facility] Comment: Interpretive Data Fasting glucose >/= 126 [...] 2022. Calcium 9.3 8.5 - 10.3 mg/dL [facility] Bilirubin, total <0.2 0.1 - 1.2 mg/dL [facility] Protein, pl 8.2 6.5 - 8.5 g/dL [facility] Albumin 3.5 3.5 - 5.0 g/dL [facility] Alk phos 89 40 - 130 Units/L [facility] ALT 82(H) 7 - 55 Units/L [facility] AST 73(H) 10 - 50 Units/L [facility] Blood 07/08/2024 5:13 PM MOLECULAR PATHOLOGIST 07/08/2024 5:20 PM MOLECULAR PATHOLOGIST Pardeep Montano MD LAB BLOOD ORDERABLES Fi nal Result [facility] Department [place] [address] * (ABNORMAL) CBC with auto differential (07/08/2024 5:13 PM MOLECULAR PATHOLOGIST) Pathologist [facility] WBC 4.6 3.8 - 9.9 K/cumm Hgb 12.7(L) 13.0 - 17.5 g/dL [facility] Hct 41.6 38.9 - 50.3 % [facility] Plt 663(H) 150 - 400 K/cumm [facility] MPV 9.0(L) 9.1 - 12.3 fL [facility] RBC 5.27 4.30 - 5.80 M/cumm [facility] MCV 78.9(L) 81.3 - 96.4 fL [facility] MCH 24.1(L) 27.1 - 33.3 pg [facility] MCHC 30.5(L) 32.3 - 35.7 g/dL [facility] RDW CV 17.4(H) 11.1 - 14.9 % [facility] RDW SD 50.0(H) 35.7 - 48.1 fL [facility] NRBC abs 0.00 0.00 - 0.01 K/cumm [facility] Blood (Blood, Venous) 07/08/2024 5:13 PM MOLECULAR PATHOLOGIST 07/08/2024 5:20 PM MOLECULAR PATHOLOGIST us Pardeep Montano MD LAB BLOOD ORDERABLES Fi nal Result [facility] Department [place] [address] documented in this encounter Visit Diagnoses Diagnosis Dysuria- Primary Suicidal ideation Homelessness Lack of housing documented in this encounter Orders Nursing Count Last Ordered Date First Orde red Date MISCELLANEOUS NURSING CARE ORDER (SPECIFY) 1 07/08/2024 documented in this encounter Additional [...] is undergoing Ring Surveillance for admission to [facility]. VICTOR MANUEL [facility] 07/05/2024 07/05/2024 07/09/2024 10:55 AM MOLECULAR PATHOLOGIST C. difficile suspected 07/07/2024 07/07/202407/09 3:05 AM MOLECULAR PATHOLOGIST documented as of this encounter Care Teams Warp Placer Relationship Specialty Start Date End Date Mady Sullivan MD [address] [place] [address] PCP - General Infectious Diseases 10/12/23 No, Physician 10/12/23 documented as of this encounter
--- OUTSIDE RECORDS SUMMARY | 2024-08-10 03:33 | XMS_ITS | Encounter Summary ---
Author Organization [facility] Healthcare Address [address] [place] [address] Care Team Providers Care Fisheries Technician Name Role Phone Mady Sullivan MD Primary Care Provider No, Physician Unavailable Nguyen Stephenson RN Unavailable [phone] Reason for Visit * Reason Comments Chart Review Encounter Details Date Type Department Care Team (Late st Contact Info) Description 06/09/2024 SHOP/CHAP Initial Eligibility Review [facility]NAG[facility] [address] [place] [address] Nguyen Stephenson, RN [address] [facility] [address] [place] [address] Social History Tobacco Use Types Packs/Day Years Used Date Smoking Tobacco: Former Cigarettes Passive Smoke Exposure: Current Smokeless Tobacco: Never [facility] Utilities Answer Date Recorded In the past 12 months has [facility] [employer], gas, oil, or water [employer] threatened to shut off services in [...] answer 06/04/2024 How often do you attend [facility] or spiritism services? Patient unable to answer 06/04/2024 Do you belong to any clubs o r organizations such as presybeterian groups, unions, fraternal or athletic groups, or [...] 4 04/07/2024 [facility] - Occupational Stress [...] any time in the past 12 m [facility], were you homeless or living in a longterm (including now)? 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 Answer Date of Assessment Author No 02/24/2024 10:18 AM CDT Manda Hardinricia, LEATHER CUTTER * Are you blind or do you have serious difficulty seeing, even when wearing glasses? Answer Date of Assessment Author No 02/24/2024 10:18 AM CDJose Hardin Manda Dickensricia, LEATHER CUTTER * Do you have serious difficulty walking or climbing stairs? Answer Date of Assessment Author No 02/24/2024 10:18 AM CDJose Hardin Manda Dickensricia, LEATHER CUTTER * Do you have serious difficulty dressing or bathing? Answer Date of Assessment Author No 02/24/2024 10:18 AM CDJose Hardin Manda Sherine, LEATHER CUTTER * Because of a physical, mental, or emotional condition, do you have serious difficulty doing errandsalone such as visiting the doctor? Answer Date of Assessment Author No 02/24/2024 10:18 AM CDJose HardinManda ingram LEATHER CUTTER documented as of this encounter Mental Status * Because of a physical, mental, or emotional condition, do you have serious difficulty concentrating, remembering, or making decisions? (5 years old or older) Answer Entry Date Author No 02/24/2024 10:18 AM LAURO Hardin Manda Sherine, LEATHER CUTTER documented in this encounter Plan of Treatment Not on file documented as of this encounter Visit Diagnoses Not on filedocumented in this encounter Care Teams Fisheries Technician Relationship Specialty Start Date End Date Mady Sullivan MD [address] [facility] [address] [place] [address] PCP - General Infectious Diseases 10/12/23 No, Physician 10/12/23 Nguyen Stephenson, VICTOR MANUEL [address] [facility] [address] [place] [address] [facility]OP Outpatient Cider Maker 06/09/24 06/11/24 documented as of this encounter
--- OUTSIDE RECORDS SUMMARY | 2024-08-10 03:33 | XMS_ITS | Encounter Summary ---
Author Organization [facility] Healthcare Address [address] [place] [address] Care Team Providers Care Esl Teacher Name Role Phone Mady Sullivan MD Primary Care Provider No, Physician Unavailable Reason for Visit * Reason Comments Mental Health Problem Leg Pain Encounter Details Date Type Department Care Team (Late st Contact Info) Description 04/30/2024 9:21 PM CDT - 05/01/2024 4:39 AM CDT Emergency [facility] Emergency Department [address] [place] [address] Willie Abarca MD [address] [facility] [address] [place], [place] [id number] Acute right ankle pain (Primary Dx); Depression, unspecified depression type Discharge Disposition: Discharge to home or self care Social History Tobacco Use Types Packs/Day Years Used Date Smoking Tobacco: Former Cigarettes Passive Smoke Exposure: Current Smokeless Tobacco: Never [facility] Utilities Answer Date Recorded In the past 12 months has [facility] gas, oil, or water Lipperhey threatened to shut off services in your home? No 04/07/2024 Humiliation, Afraid, Rape, and Kick questionnair e [...] or ex-partner? No 02/24/2024 Social Connection and Isolat ion Panel [NHANES] Answer Date Recorded In a typical week, how many times do you talk on the phone with family, friends, or neighbors? More than three times a week 04/07/2024 How often do you get togethe r with friends or relatives? More than three times a week 04/07/2024 How often do you attend chur ch or congregational services? Never 04/07/2024 Do you belong to any clubs o r organizations such as lutheran groups, unions, fraternal or athletic groups, or school groups? No 04/07/2024 How often do you attend meet ings of the clubs or organizations you belong to? Never 04/07/2024 Are you , , di vorced, , never , or living with a partner? Never 04/07/2024 AUDIT-C Answer Date Recorded Q1: How often [...] housing, medical care, and heating? Very hard 04/07/2024 PHQ-2 Answer Date Recorded PHQ-2 Total Score 4 04/07/2024 [facility] - Occupational [...] the money to buy more. Often true 04/07/20 24 Within the past 12 months, t he food you bought just didn't last and you didn't have money to get more. Often true 04/07/2024 PRAPARE - Transportation Answer Date Re corded In the past 12 months, has l ack of transportation kept you from medical appointments or from getting medications? No 03/23 In the past 12 months, has l ack of transportation kept you from meetings, work, or from getting things needed for daily living? No 04/07/2024 Housing Stability Vital Sign Answer Jerrod e [...] place to sleep or slept in a snf (including now)? No 10/15/2023 Housing Stability Vital Sign Answer Jerrod e Recorded In the last 12 months, was t here a time when you were not able to pay the mortgage or rent on time? No 04/07/2024 In the past 12 months, how m any times have you moved where you were living? 0 04/07/2024 At any time in the past 12 m [facility], were you homeless or living in a snf (including now)? Yes 04/07/2024 Personal Safety Answer Date Recorded Have you ever been in or are you currently in a harmful physical or emotional relationship or is someone making you feel afraid or unsafe? Denies 03/03/2024 Education Answer Date Recorded What is the highest level of school you have completed or the highest degree you have received? Bachelor's degree (e.g., BA, AB, BS) 02/24/2024 Sex and Gender Information Value Date Recorded Sex Assigned at Not on file Legal Sex Male 11:02 PM LEGAL OPERATIONS MANAGER Gender Identity Not on file Sexual Orientation Not on file Occupation Industry Job Start Date Job End Date unemployed Not on file Not on file Not on file documented as of this encounter Last Filed Vital Signs Vital Sign Reading Time Taken Comments Blood Pressure 94/74 05/01/2024 12:00 AM CDT Pulse 76 05/01/2024 12:00 AM CDT Temperature 36.5 ??C (97.7 ??F) 04/30/2024 9:36 PM CD T Respiratory Rate 29 05/01/2024 12:00 AM CDT Oxygen Saturation 100% 05/01/2024 12:00 AM CDT Inhaled Oxygen Concentration - - Weight 81.6 kg (180 lb) 04/30/2024 9:36 PM CDT Height 182.9 cm (6') 04/30/2024 9:36 PM CDT Body Mass Index 24.41 04/30/2024 9:36 PM CDT documented in this encounter Functional Status * Are you deaf or do you have serious difficulty hearing? Answer Date of Assessment Author No 02/24/2024 10:18 AM CDT Manda Hardin MSW * Are you blind or do you have serious difficulty seeing, even when wearing glasses? Answer Date of Assessment Author No 02/24/2024 10:18 AM CDT Manda Hardin SHUTTLE FINAL INSPECTOR * Do you have serious difficulty walking or climbing stairs? Answer Date of Assessment Author No 02/24/2024 10:18 AM CDT Manda Hardin MSW * Do you have serious difficulty dressing or bathing? Answer Date of Assessment Author No 02/24/2024 10:18 AM CDT Manda Hardin SHUTTLE FINAL INSPECTOR * Because of a physical, mental, or emotional condition, do you have serious difficulty doing errandsalone such as visiting the doctor? Answer Date of Assessment Author No 02/24/2024 10:18 AM CDT Manda Hardin SHUTTLE FINAL INSPECTOR documented as of this encounter Mental Status * Because of a physical, mental, or emotional condition, do you have serious difficulty concentrating, remembering, or making decisions? (5 years old or older) Answer Entry Date Author No 02/24/2024 10:18 AM CDT Manda Hardin SHUTTLE FINAL INSPECTOR documented in this encounter Discharge Instructions * Discharge Instructions* Rose Mary Silvestre MD - 05/01/2024 4:25 AM CDT [facility] Behavioral Health - Same Day Access (SDA) [facility] Behavioral Health ([facility]) provides and coordinates an array of mental health services for citizens residing in [facility], [facility], and the [facility] of [facility], [place], and [place], [place]. What is Same Day Access? Same Day Access (SDA) is a walk-in clinic serving people with mental health needs. Each walk-in will be seen by a mental health clinician. Where can I access Same Day Access services? Five [facility] locations offer SDA services--please call ahead to ensure hours and availabilities havenot changed due to COVID-19. [facility] [address], [address] [place] [address] Sunday - Sunday 8 a.m. - 5 p.m. [facility] [address], [address] [place] [address] Sunday - Sunday 8 a.m. - 5 p.m. [facility] [address] [place] [address] Sunday - 9 a.m. - 5 p.m. Sunday 9 a.m. - [address] [address] Wednesdays 9 a.m. - 3:30 p.m. [facility] [address] [place] [address] Wednesdays 9 a.m. - 3:30 p.m. *If you are in a crisis, you can reach the Behavioral Health Response team at [phone] or toll-free at [phone]* documented in this encounter Medications at Time of Discharge ARIPiprazole (ABILIFY) 10 mg tabletIndication s:Depression Treatment Adjunct Take 1 tablet (10 mg total) by mouth daily for 15 days 15 tablet 04/14/2024 buPROPion XL (WELLBUTRIN XL) 150 mg 24 hr tablet Take 1 tablet (150 mg total) by mouth daily 04/19/2024 4 busPIRone (BUSPAR) 10 mg tablet Take 1 tablet (10 mg total) by mouth 3 (three) times a day 02/08/2024 4 busPIRone (BUSPAR) 5 mg tablet Take 1 tablet (5 mg total) by mouth 2 (two) times a day 12/03/2023 4 HYDROcodone-acet aminophen (NORCO) 5-325 mg per tablet Take 1 tablet by mouth every 6 (six) hours as needed for pain 10 tablet 04/09/2024 4 ibuprofen (ADVIL,MOTRIN) 600 mg tablet Take 1 tablet (600 mg total) by mouth every 6 (six) hours as needed 04/13/2023 4 traZODone (DESYREL) 50 mg tablet Take 1 tablet (50 mg total) by mouth nightly as needed 02/21/2024 4 bictegravir-emtr icitabine-tenofo vir (Biktarvy) 50-200-25 mg tabletIndication s:HIV infection Take 1 tablet by mouth daily 30 tablet 3 04/10/2024 4 doxepin (SINEquan) 25 mg capsule Take 1 capsule (25 mg total) by mouth nightly for 15 days 15 capsule 04/14/2024 4 sulfamethoxazole -trimethoprim (BACTRIM DS) 800-160 mg per tabletIndication s:Prophylaxis, Medical Take 1 tablet (160 mg of trimethoprim total) by mouth daily 30 tablet 1 04/10/2024 4 documented as of this encounter Discharge Disposition Disposition Code Departure Means Destination Comment s Discharge to home or self care documented in this encounter Progress Notes * Sindy Leija LCSW - 05/01/2024 4:39 AM CDT EDSW consulted for D/C transportation. Pt has [place] Medicaid and has a transportation benefit. SW met with pt who provided a drop off addressof [address]. Unable to reach [facility], ride arranged via [employer]. AIDE Rivers LCSW * Mishel Don MD - 05/01/2024 12:18 AM CDT SAFE-T Protocol with C-SSRS (Ida Risk and Protective Factors) - Recent Step 1: Identify Risk Factors: Ida Suicide Severity Rating Scale (Recent Screener) Initial Screening: Reassessment (as needed): Is the patient being treated today because it is known or suspected that they prepared, started, ortried to end their life? No Is the patient able to appropriately answer questions? No Information obtained from: Patient 1. In the past month, have you wished you were or that you could go to sleep and not wake up? Yes 2. In the past month, have you actually had any thoughts of killing yourself? Yes 3. In the past month, have you been thinking about how you might kill yourself? Refused to answer 4. In the past month, have you had these thoughts and had some intention of acting on them? Refusedto answer 5. In the past month, have you started to work out or worked out the details of how to kill yourself and do you intend to carry out this plan? Refused to answer 6. Have you ever done anything, started to do anything, or prepared to do anything to end your life? Yes 6b. Was this within the past three months? Refused to answer Suicide Risk Level: Moderate-pino Activating Events: refused to answer Treatment History: refused to answer Clinical Status:substance use disorder Other: NA Access to lethal methods (specifically about the presence or absence of a firearm in the home or ease of accessing): refused to answer Step 2: Identify Protective Factors (Protective factors may not counteract significant acute suicide risk factors): Internal: refused to answer External: Refused to answer Step 3: Specific Questioning about Thoughts, Plans, and Suicidal Intent (see Step 1 for Ideation Severity and Behavior): C-SSRS Suicidal Ideation Intensity (with respect to the most severe ideation 1-5 identified above) Month Frequency In the past month, how many times have you had these thoughts? Refused to answer Duration When you have the thoughts how long do they last? Refused to answer Controllability Could/can you stop thinking about killing yourself or wanting to if you want to? Refused to answer Deterrents Are there things - anyone or anything (e.g., family, judaism, pain of ) - that stopped you from wanting to or acting on thoughts of suicide? Refused to answer Reasons for Ideation What sort of reasons did you have for thinking about wanting to or killing yourself? Was it to end the pain or stop the way you were feeling (in other words you couldn???t go on livingwith this pain or how you were feeling) or was it to get attention, revenge or a reaction from others? Or both? Refused to answer Total Suicidal Ideation Intensity Score* (add values of selected answers above) *Score can range from 2- 25: -Low: 2-5 -Moderate: 6-10 -Moderately Severe: 11-15 -Severe: 16-20 -Very Severe: 21-25 Unable to calculate Step 4: Guidelines to Determine Level of [...] 5: Assessment and Plan: Updated Risk Level: Moderate-High Suicide Risk Rationale for risk level decision and actions taken: Patient endorsing history of SI, but is unwilling to answer further questions and is not currently sober. At this time he is a moderate-high suicide risk. Cosigned by Willie Abarca MD at 07/04/2024 2:19 AM LEGAL OPERATIONS MANAGER L OPERATIONS MANAGER documented in this encounter ED Notes * Ezra Cole MD - 04/30/2024 10:21 PM CDT HPI Chief Complaint Patient presents with ??? Mental Health Problem ??? Leg Pain HPI Patient is a 28-year-old male with a past medical including, borderline personality disorder, past hx suicide attempt, PTSD, HIV on Biktarvy not currently compliant, hx syphilis, hx meth use. On brief chart review the patient is often seen in emergency department for psychiatric evaluation recent psychiatric notes allude to borderline personality disorder with chronic suicidally. He presents today stating that he has right ankle pain and a mood problem. The patient states he is???in a dark place?? . He states that he often has a depressed mood, states most days. He states that he is very hard on himself. He admits to an ongoing struggle with methamphetamine use, isolation from his family, troubles with housing. That he took 5 Percocets today in an attempt to end his life. He also states that he is actively high on methamphetamine as he took methamphetamine yesterday. When asked him about plans for other suicide attempts he would not answer my questions. Patient History: Patient Active Problem List Diagnosis Date Noted ??? Dental abscess 04/04/2024 ??? Borderline personality disorder (CMS/HCC) ([facility]) 03/03/2024 ??? Neutropenia ([facility]) 03/03/2024 ??? Limping 03/03/2024 ??? Suicide attempt ([facility]) 02/24/2024 ??? Lower extremity pain, right 02/24/2024 ??? Stimulant use disorder 02/24/2024 ??? Suicide ideation 01/29/2024 ??? Cannabis use disorder, severe ([facility]) 01/26/2024 ??? Routine general medical examination at a health care facility 01/26/2024 ??? PTSD (post-traumatic stress disorder) 10/12/2023 ??? Vertigo 10/11/2023 ??? Unspecified mood disorder (HCC) 10/10/2023 ??? HIV disease (CMS/HCC) ([facility]) 10/03/2023 ??? Syphilis 10/03/2023 ??? Inguinal hernia 10/03/2023 ??? 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[facility]) 10/03/2023 ??? Plaque psoriasis 10/03/2023 ??? Methamphetamine use disorder, moderate ([facility]) 10/03/2023 ??? Borderline personality disorder, rule out other organic causes of unusual pEX/MSE 10/02/2023 ??? HIV (human immunodeficiency virus infection) ([facility]) 10/30/2022 ??? Skin lesion 10/30/2022 ??? Painless rectal bleeding 10/30/2022 ??? Depressive disorder 10/30/2022 ??? 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 Condyloma 10/29/2020 Past Medical History: Diagnosis Date ??? Anal warts ??? Borderline personality disorder (CMS/HCC) ([facility]) ??? Depression prior suicide attempts (10/2023, 02/2024) ??? Depression with suicidal ideation ??? HIV (human immunodeficiency virus infection) ([facility]) ??? HIV (human immunodeficiency virus infection) ([facility]) Dx 2017 ??? Methamphetamine use disorder, moderate, in early remission ([facility]) ??? Neuropathy (CMS/HCC) ??? PTSD (post-traumatic stress disorder) ??? Syphilis (acquired) Rx'd with 3 IM doses of Penicillni per patient Past Surgical History: Procedure Laterality Date ??? LUMBAR PUNCTURE WO INJECTION, DIAGNOSTIC N/A 10/12/2023 Family History Problem Relation Age of Onset ??? Suicide Completion Father ??? Other (overdose) Father ??? Hypertension Maternal Grandmother ??? Diabetes type II Maternal Grandmother Social History Tobacco Use ??? Smoking status: Former Types: Cigarettes Passive exposure: Current ??? Smokeless tobacco: Never Vaping Use ??? Vaping status: Unknown Substance and Sexual Activity ??? Alcohol use: Not on file ??? Drug use: Yes Frequency: 3.0 times per week Types: Methamphetamines Comment: relapsed - meth used 3 days ago ??? 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 Review of Systems Review of Systems Unreliable due to active drug intoxication Physical Exam ED Triage Vitals Temp Pulse Resp BP SpO2 04/30/24213504/30/24212904/30/24212904/30/24212904/30/242129 36.5 ??C (97.7 ??F) 84 18 118/76 98 % Temp src Heart Rate Source Patient Position BP Location FiO2 (%) -- -- -- -- -- Height Height Method Weight Weight Method 04/30/24213504/30/24213504/30/242135 -- 1.829 m (6') Stated 81.6 kg (180 lb) Physical Exam Constitutional: Appearance: He is normal weight. HENT: Head: Normocephalic and atraumatic. Eyes: Pupils: Pupils are equal, round, and reactive to light. Comments: There is conjunctival injection Cardiovascular: Rate and Rhythm: Normal rate and regular rhythm. Pulmonary: Effort: Pulmonary effort is normal. Breath sounds: Normal breath sounds. Abdominal: General: Abdomen is flat. There is no distension. Palpations: Abdomen is soft. Tenderness: There is no abdominal tenderness. There is no guarding. Musculoskeletal: Right lower leg: No edema. Left lower leg: No edema. Skin: General: Skin is warm and dry. Neurological: Mental Status: He is alert. Comments: Patient is frequently itching various parts of his body. Moves all extremities antigravity. Not consistently following commands. Psychiatric: Attention and Perception: He is inattentive. Mood and Affect: Mood is depressed. Speech: Speech normal. Behavior: Behavior is hyperactive. Behavior is not combative. MDM Patient is a 28-year-old male with history most relevant for borderline personality disorder, suicide attempt, active substance use disorder using methamphetamine. He presents today mainly for a moodproblem states he is in a very dark place and took 5 Percocets today to try and into his life. He has a long documented history of chronic suicidality. At this time he is actively intoxicated on methamphetamine and will need detox prior to psychiatric evaluation. I will get x-ray of the right ankle given the patient's ankle pain afterwards or have the patient evaluated for transfer to the [facility] for detox The differential diagnosis includes methamphetamine intoxication, suicide attempt, drug overdose, borderline personality disorder, major depressive disorder. Medical Decision Making Attending Summary of Care ED Course as of 05/01/24 0429 Time: 04/30 2232 Comment: I have seen and examined this patient, I have discussed/reviewed the history, physical exam and assessment with the resident . We are in agreement with treatment plan except as I have noted. Phil Chase is a 28 y.o. male. Please see full note HPI for history and exam findings. Attending Medical Decision Making: Patient presents for ankle pain and suicidal ideation in the setting of active meth use. Active bleed intoxicated on methamphetamines. States he took 5 Percocet in order to try to harm himself today no other self-harm no other plan at this time. Plan for labs, x-ray and re-evaluation pending sobriety Juan Guerra MD 04/30/2024 By: Juan Guerra MD Time: 04/30 679 Comment: Plan to send to [facility] after ankle x-ray and labs drawn By: Juan Guerra MD Time: 05/01 15 Comment: Ankle x-rays negative for fracture, will transfer to [facility] By: Mishel Don MD Time: 05/01 969 Comment: Re-evaluated patient. He is agreeable with discharge with out patient resources. Patient is currently able to ambulate without assistance. He is able to speech in full sentences without slurring of his words. By: Rose Mary Silvestre MD No diagnosis found. Ezra Cole MD Resident 05/01/24 1048 Cosigned by Juan Guerra MD at 05/04/2024 3:01 PM CDT * Janiya Abarca, VICTOR MANUEL - 04/30/2024 9:25 PM CDT Pt BIBEMS. Pt called for ambulance and stated he was playing basketball and fell and landed on leftankle. No deformities noted. Endorses pain. Per EMS pt told him he had a plan to OD and had SI. Perpt he snorted 5 percocet's before EMS arrived, attempting to OD. -HI VSS. Pt fidgety upon arrival. Hx anxiety, depression, borderline personality disorder. HIV * Sreedhar Cole RN - 04/30/2024 9:21 PM CDT Bed: ED1-08 Expected date: Expected time: Means of arrival: Comments: [facility] [address] Sreedhar Cole RN 04/30/242120 documented in this encounter Miscellaneous Notes * ED Re-evaluation Note - Rose Mary Silvestre MD - 05/01/2024 12:25 AM CDT ED Re-evaluation TRANSITION OF CARE I, Rose Mary Silvestre MD, am taking signout and assuming care of this patient. I have reviewed all pertinent vital signs, allergies, and history available in the chart. Summary: 28 y.o. male with PMH of borderline personality disorder, SI, and active methamphetamine use who presents following an SI attempt where he reportedly snorted a 5mg. He also complained of right ankle pain. X-ray negative for acute pathology. He is having some side effects of likely methamphetamine intoxication. Pending: Sober re-eval Dispo: TBD, likely discharge ED Course as of 05/01/24 0429 Time: 04/30 2232 Comment: I have seen and examined this patient, I have discussed/reviewed the history, physical exam and assessment with the resident . We are in agreement with treatment plan except as I have noted. Phil Chase is a 28 y.o. male. Please see full note HPI for history and exam findings. Attending Medical Decision Making: Patient presents for ankle pain and suicidal ideation in the setting of active meth use. Active bleed intoxicated on methamphetamines. States he took 5 Percocet in order to try to harm himself today no other self-harm no other plan at this time. Plan for labs, x-ray and re-evaluation pending sobriety Juan Guerra MD 04/30/2024 By: Juan Guerra MD Time: 04/30 2248 Comment: Plan to send to [facility] after ankle x-ray and labs drawn By: Juan Guerra MD Time: 05/01 15 Comment: Ankle x-rays negative for fracture, will transfer to [facility] By: Mishel Don MD Time: 05/01 329 Comment: Re-evaluated patient. He is agreeable with discharge with out patient resources. Patient is currently able to ambulate without assistance. He is able to speech in full sentences without slurring of his words. By: Rose Mary Silvestre MD Final diagnoses: Acute right ankle pain Depression, unspecified depression type Rose Mary Silvestre MD Resident 05/01/24428 * ED Re-evaluation Note - Mishel Don MD - 04/30/2024 10:45 PM CDT ED Re-evaluation TRANSITION OF CARE: I, Mishel Don MD, am taking signout. I have reviewed all pertinent vital signs, allergies, and history available in the chart. Summary: 28 y.o. male w/ PMH borderline personality disorder, SI, active methamphetamine use presenting with SI attempt by percocet OD and right ankle pain. Pending: R ankle xrays, sober re-evaluation Dispo: transfer to [facility] ED Course as of 05/01/24428 Time: 04/30 2232 Comment: I have seen and examined this patient, I have discussed/reviewed the history, physical exam and assessment with the resident . We are in agreement with treatment plan except as I have noted. Phil Chase is a 28 y.o. male. Please see full note HPI for history and exam findings. Attending Medical Decision Making: Patient presents for ankle pain and suicidal ideation in the setting of active meth use. Active bleed intoxicated on methamphetamines. States he took 5 Percocet in order to try to harm himself today no other self-harm no other plan at this time. Plan for labs, x-ray and re-evaluation pending sobriety Juan Guerra MD 04/30/2024 By: Juan Guerra MD Time: 04/30 2248 Comment: Plan to send to [facility] after ankle x-ray and labs drawn By: Juan Guerra MD Time: 05/01 0015 Comment: Ankle x-rays negative for fracture, will transfer to [facility] By: Mishel Don MD Time: 05/013 Comment: Re-evaluated patient. He is agreeable with discharge with out patient resources. Patient is currently able to ambulate without assistance. He is able to speech in full sentences without slurring of his words. By: Rose Mary Silvestre MD Romans, Sarah Challoner, MD Resident 04/30/24 4550 Mishel Don MD Resident 05/01/24 0728 * ED Pre-Arrival Note - Brendan Maddox RN - 04/30/2024 9:21 PM CDT Pre-Arrival Note Pt BIBEMS for leg pain and Suicide attempt. Pt hurt his leg while playing basketball. Pt took 5 percocet after in an attempt for suicide Brendan Maddox RN documented in this encounter Plan of Treatment Not on file documented as of this encounter Procedures Procedure Name Priority Date/Time Associated Diagnosis Comments XR ANKLE RIGHT 2 VIEWS ED 10:57 PM CDT EGFR STAT 04/30/2024 10:31 PM CDT CBC WITHOUT DIFFERENTIAL Routine 04/30/2024 10:31 PM CDT ETHANOL STAT 04/30/2024 10:31 PM CDT ACETAMINOPHEN LEVEL STAT 04/30/2024 1 0:31 PM CDT COMPREHENSIVE METABOLIC PANEL STAT 04/30/2024 10:31 PM CDT documented in this encounter Results * XR Ankle Right 2 Views (04/30/2024 10:57 PM CDT) Anatomical Region Laterality Modality Lower Extremities, Ankle Right Compute d Radiography 04/30/2024 11:2 5 PM CDT Impressions 05/01/2024 1:28 PM CDT No acute fracture. Talar dome is intact, joint spaces are maintained. No soft tissue swelling. Dictated by: Madison Ordonez MD The radiology attending physician has personally reviewed this study, and had reviewed and/or edited this written report and agrees with it. Electronically signed by: Orly Miller M.D. Narrative 05/01/2024 1:28 PM CDT EXAMINATION: XR ANKLE RIGHT 2 VIEWS HISTORY: Male presenting with right ankle pain COMPARISON: Right tibia-fibula radiographs 02/23/2024 Procedure Note Orly Miller MD - 05/01/2024 EXAMINATION: XR ANKLE RIGHT 2 VIEWS HISTORY: Male presenting with right ankle pain COMPARISON: Right tibia-fibula radiographs 02/23/2024 IMPRESSION: No acute fracture. Talar dome is intact, joint spaces are maintained. No soft tissue swelling. Dictated by: Madison Ordonez MD The radiology attending physician has personally reviewed this study, and had reviewed and/or edited this written report and agrees with it. Electronically signed by: Orly Miller M.D. Ezra Cole MD IMG XR PROCEDURES Final Result * eGFR (04/30/2024 10:31 PM CDT) eGFR >90 >=60 mL/min/1. 73 m2 [...] interpretive data was last reviewed 2021. Blood 04/30/2024 10:3 1 PM CDT 04/30/2024 11:04 PM CDT us Ezra Cole MD LAB BLOOD ORDERABLES Final Res ult JOE [facility] Department [place] [address] * (ABNORMAL) CBC without differential (04/30/2024 10:31 PM CDT) WBC 3.9 3.8 - 9.9 K/cumm Hgb 12.3(L) 13.0 - 17.5 g/dL [facility] Hct 38.9 38.9 - 50.3 % [facility] Plt 216 150 - 400 K/cumm [facility] MPV 10.6 9.1 - 12.3 fL [facility] RBC 4.77 4.30 - 5.80 M/cumm [facility] MCV 81.6 81.3 - 96.4 fL [facility] MCH 25.8(L) 27.1 - 33.3 pg [facility] MCHC 31.6(L) 32.3 - 35.7 g/dL [facility] RDW CV 14.7 11.1 - 14.9 % [facility] RDW SD 43.8 35.7 - 48.1 fL [facility] NRBC abs 0.00 0.00 - 0.01 K/cumm [facility] Blood 04/30/2024 10:3 1 PM CDT 04/30/2024 11:04 PM CDT us Ezra Cole MD LAB BLOOD ORDERABLES Final Res ult [facility] Department [place] [address] * Comprehensive metabolic panel (04/30/2024 10:31 PM CDT) Pathologist [facility] Sodium 141 135 - 145 mmol/L Potassium, pl 4.3 3.3 - 4.9 mmol/L [facility] Comment:Hemolyzed; Potassium value may be falsely elevated by as much as 0.6-1.0 mmol/L. Suggest redraw and reanalysis. Chloride 107 97 - 110 mmol/L [facility] CO2 27 22 - 32 mmol/L [facility] Anion gap 7 2 - 15 mmol/L [facility] BUN 13 6 - 25 mg/dL [facility] Creatinine 1.03 0.80 - 1.30 mg/dL [facility] Glucose 95 70 - 199 mg/dL [facility] Comment: Interpretive Data Fasting glucose [...] interpretive data was last revised 2022. Calcium 8.9 8.5 - 10.3 mg/dL [facility] Bilirubin, total 0.4 0.1 - 1.2 mg/dL [facility] Protein, pl 8.1 6.5 - 8.5 g/dL [facility] Albumin 3.6 3.5 - 5.0 g/dL [facility] Alk phos 67 40 - 130 Units/L [facility] ALT 18 7 - 55 Units/L [facility] AST 37 10 - 50 Units/L [facility] Comment:Hemolyzed; result ma y be falsely elevated Blood 04/30/2024 10:3 1 PM CDT 04/30/2024 11:04 PM CDT Ezra Cole MD LAB BLOOD ORDERABLES Final Res ult Performing Organization Address City/[facility]/ZIP Co de Phone Number [facility] Department [employer] [place] [address] * Ethanol (04/30/2024 10:31 PM CDT) Ethanol <10 <=10 mg/dL Comment: Interpretive Data Legal limit of intoxication > or = 80 mg/dL Levels > or = 400 mg/dL are potentially TOXIC. Current interpretive data was last revised on 2018. Blood 04/30/2024 10:3 1 PM CDT 04/30/2024 11:04 PM CDT Ezra Cole MD LAB BLOOD ORDERABLES Final Res ult [facility] [place] [place] [address] * Acetaminophen level (04/30/2024 10:31 PM CDT) Acetaminophen <5 <=5 mcg/mL Comment: Interpretive Data Significant hepatic injury may occur and treatment with n-acetyl cysteine is generally recommended if the acetaminophen level exceeds: 150 mcg/mL at 4 hours after ingestion ??75 mcg/mL at 8 hours after ingestion ??38 mcg/mL at 12 hours after ingestion ??19 mcg/mL at 16 hours after ingestion Consult toxicology or poison control ([phone]) for unknown ingestion time. Current interpretive data was last revised 2023. Blood 04/30/2024 10:3 1 PM CDT 04/30/2024 11:04 PM CDT us Ezra Cole MD LAB BLOOD ORDERABLES Final Res ult [facility] Department [place] [address] documented in this encounter Visit Diagnoses Diagnosis Acute right ankle pain- Primary Depression, unspecified depression type documented in this encounter Care Teams Esl Teacher Relationship Specialty Start Date End Date Mady Sullivan MD [facility] [address] [address] PCP - General Infectious Diseases 10/12/23 No, Physician 10/12/23 documented as of this encounter
--- OUTSIDE RECORDS SUMMARY | 2024-08-10 03:33 | XMS_ITS | Encounter Summary ---
Author Organization [facility] Healthcare Address [address] [place] [address] Care Team Providers Care Curtain Framer Name Role Phone Mady Sullivan MD Primary Care Provider No, Physician Unavailable Nguyen Stephenson RN Unavailable [phone] Amira Javed COLLEGE ARCHIVIST Unavailable [phone] Encounter Details Date Type Department Care Team (Late st Contact Info) Description 04/21/[address] [facility] [address] [place] [address] Michelle Aggarwal RN Social History Tobacco Use Types Packs/Day Years Used Date Smoking Tobacco: Former Cigarettes Passive Smoke Exposure: Current Smokeless Tobacco: Never [facility] Utilities Answer Date Recorded In the past 12 months has [facility] [employer], gas, oil, or water [employer] threatened to shut off services in your [...] often do you attend chur ch or latter-day services? Never 04/07/2024 Do you belong to any clubs o r organizations such as nondenominational groups, unions, fraternal or athletic groups, or [...] Date Recorded PHQ-2 Total Score 4 04/07/2024 [facility] Answer Date [...] place to sleep or slept in a fpc (including now)? No 10/15/2023 Housing Stability Vital Sign Answer Ejrrod e Recorded In the last 12 months, was t here a time when you were not able to pay the mortgage or rent on time? No 04/07/2024 In the past 12 months, how m any times have you moved where you were living? 0 04/07/2024 At any time in the past 12 m [facility], were you homeless or living in a fpc (including now)? Yes 04/07/2024 Personal Safety Answer [...] on file Legal Sex Male 11:02 PM CRAB CATCHER Gender Identity Not on file Sexual Orientation [...] COVID: Suspected 06/26/2024 06/26/2024 06/26/2024 11:47 AM CRAB CATCHER Ring Surveillance Comment:[facility] Ring Surveillance Flag is placed and removed manually by IP. However, if the patient is discharged before their swab is collected, it will remain on a patient's chart for 7 days after discharge in case the patient is re-admitted elsewhere. Pt is undergoing Ring Surveillance for admission to [facility]. VICTOR MANUEL Ch [facility] 07/05/2024 07/05/2024 07/09/2024 10:55 AM CRAB CATCHER C. difficile suspected 07/07/2024 07/07/202407/09 3:05 AM CRAB CATCHER documented as of this encounter Care Teams Curtain Framer Relationship Specialty Start Date End Date Mady Sullivan MD [address] [facility] [address] [place] [address] PCP - General Infectious Diseases 10/12/23 No, Physician 10/12/23 Nguyen Stephenson, RN [address] [facility] [address] [place] [address] [employer] [facility] Retail Intern 06/09/24 06/11/24 Amira Javed, COLLEGE ARCHIVIST [address] [facility] ([facility] Mailstop [phone] [place] [address] [employer] [facility] [employer] Retail Intern 07/09/24 07/09/24 documented as of this encounter
--- OUTSIDE RECORDS SUMMARY | 2024-08-10 03:33 | XMS_ITS | Encounter Summary ---
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 multiple recent presentations felt to be c/w known BPD, stimulant use, and secondary gain, especially given inconsistent hxprovided and display of short- and long-term future planning on MSE. Patient expresses interest in returning to rehab, identifying his substance use as the primary cdl company flatbed driver of his psychological problems. He reports interest in resuming his meds and is amenable to following up outpatient with his CSS and psychiatrist. He reports no firearm access. At this time, he does not meet inpatient criteria. Re commend SW consult for rehab resources. Risk Assessment: Risk factors: male sex, living alone, ?prior suicide attempt(s), depression, communication of specific suicide plan, chronic medical problem(s), chronic psychiatric disorder, active substance use of stimulants, poor coping skills, history of medication non-adherence, history of impulsivity, unemployment, and non-domiciled, limited social support Protective factors: future planning, access to healthcare/mental health resources, outpatient case management, and plans of abstinence/cessation of using substances At this time, the patient endorses suicidal ideation that is at odds with his display of future planning. He reports a plan (though no current firearm access per his report); he shows no evidence of suicidal intent. The patient has not demonstrated any self-harm behaviors. Overall, the patient is at chronically moderately elevated risk of harm due to non-modifiable risk factors; he is not at additional acutely elevated high risk of harm to others and self given patient appears to be near his psychiatric baseline with chronic intermittent SI that appears driven by secondary gain or emotional distress. Phil Chase represents chronically elevated risk of harm to self or others due to non-modifiable risk factors; these factors are unfortunately not modifiable by inpatient admission. Recommendations - At this time, Phil Chase does not meet criteria for psychiatric admission - Risks are being addressed by referral to for rehab resources, ID consult by ED providers, ongoing pharmacotherapy, and ongoing outpatient psychiatric care - Patient was encouraged to follow up with [facility] and Psychiatrist [facility] Carrie Xiong -- heis in agreement -- please provide these contact numbers in AVS - It is reasonable to provide patient with a short bridge script (e.g., 1-2 weeks) of psychiatric meds until he can meet with his OP psychiatrist: - Aripiprazole 5 mg QHS, Doxepin 25 mg QHS, Duloxetine 60 mg daily - Please consult Social Work for rehab resources - While patient is still in the ED, please call ED Psychiatry Service with any questions or to request re-evaluation - Should patient be admitted to a medical or surgical floor and psychiatric consultation assistanceis still needed, please place a Psychiatry Consult order in [facility] and call the Inpatient Psychiatry Consult Service Amira Haynes MD Strip Machine Tender, PGY-2 For patients or family members viewing this note through HW programs: This note was written as a communication tool between healthcare providers and may contain technical language, terminology and abbreviations that is difficult to interpret without advanced medical training. If you have questions or concerns regarding what is written in this note, please request to speak with the primary medical team taking care of you or your family member or call your PCP for clarification. Please do not call the cell or pager numbers listed in this note, as the provider they are associated with may no longer be involved in your care. documented in this encounter ED Notes * Pooja Molina, JESE - 04/14/2024 6:00 PM CDT HPI Chief Complaint Patient presents with ??? Mental Health Problem The patient is a 28 year old male with a history of borderline personality disorder, HIV non compliant with medication, and stimulant use disorder who presents the emergency department via EMS for suicidal ideation with a plan to shoot himself with his friend's gun. Patient states that his addiction to meth is making him lose everything, so he purposely stopped taking all of his medications last month (Abilify, Biktarvy, cymbalta, buspirone, klonopin, and doxepin). He states that he stopped taking his medication because he is done and just wants to already . He states his friend has a gun, but got busy so he could not carry out his plan. He states the last time he used meth was yesterday (04/13/24). He denies alcohol use, hallucinations or Homicidal ideation History provided by: Patient and medical records Patient History: Patient Active Problem List Diagnosis Date Noted ??? Dental abscess 04/04/2024 ??? Borderline personality disorder (CMS/HCC) ([facility]) 03/03/2024 ??? Neutropenia ([facility]) 03/03/2024 ??? Limping 03/03/2024 ??? Suicide attempt ([facility]) 02/24/2024 ??? Lower extremity pain, right 02/24/2024 ??? Stimulant use disorder 02/24/2024 ??? Suicide ideation 01/29/2024 ??? Cannabis use disorder, severe ([facility]) 01/26/2024 ??? Routine general medical examination at a health care facility 01/26/2024 ??? PTSD (post-traumatic stress disorder) 10/12/2023 ??? Vertigo 10/11/2023 ??? Unspecified mood disorder ([facility]) 10/10/2023 ??? HIV disease (CMS/HCC) ([facility]) 10/03/2023 ??? Syphilis 10/03/2023 ??? Inguinal hernia 10/03/2023 ??? 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[facility]) 10/03/2023 ??? Plaque psoriasis 10/03/2023 ??? Methamphetamine use disorder, moderate ([facility]) 10/03/2023 ??? Borderline personality disorder, rule out other organic causes of unusual pEX/MSE 10/02/2023 ??? HIV (human immunodeficiency virus infection) ([facility]) 10/30/2022 ??? Skin lesion 10/30/2022 ??? Painless rectal bleeding 10/30/2022 ??? Depressive disorder 10/30/2022 ??? 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 Condyloma 10/29/2020 Past Medical History: Diagnosis Date ??? Anal warts ??? Borderline personality disorder (CMS/HCC) ([facility]) ??? Depression prior suicide attempts (10/2023, 02/2024) ??? Depression with suicidal ideation ??? HIV (human immunodeficiency virus infection) ([facility]) ??? HIV (human immunodeficiency virus infection) ([facility]) Dx 2017 ??? Methamphetamine use disorder, moderate, in early remission ([facility]) ??? Neuropathy (CMS/HCC) ??? PTSD (post-traumatic stress [...] Substance and Sexual Activity ??? Alcohol use: None ??? Drug use: Yes Frequency: 3.0 times per week Types: Methamphetamines Comment: relapsed - meth used 3 days ago ??? 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 Psychiatric/Behavioral: Positive for suicidal ideas. Negative for hallucinations. All other systems reviewed and are negative. Physical Exam ED Triage Vitals [04/14/24 1707] Temp Pulse Resp BP SpO2 37.3 ??C (99.2 ??F) 76 18 136/60 100 % Temp src Heart Rate Source Patient Position BP Location FiO2 (%) Oral -- -- -- -- Height Height Method Weight Weight Method 1.829 m (6') Stated 81.6 kg (180 lb) Stated Physical Exam Vitals and nursing note reviewed. Constitutional: General: He is not in acute distress. Appearance: He is well-developed. He is not ill-appearing. HENT: Head: Normocephalic and atraumatic. Eyes: General: Right eye: No discharge. Left eye: No discharge. Conjunctiva/sclera: Conjunctivae normal. Cardiovascular: Rate and Rhythm: Normal rate and regular rhythm. Pulses: Normal pulses. Heart sounds: No murmur heard. Pulmonary: Effort: Pulmonary effort is normal. No respiratory distress. Breath sounds: Normal breath sounds. Abdominal: Palpations: Abdomen is soft. Tenderness: There is no abdominal tenderness. Musculoskeletal: General: No swelling. Normal range of motion. Cervical back: Normal range of motion and neck supple. Skin: General: Skin is warm and dry. Capillary Refill: Capillary refill takes less than 2 seconds. Neurological: Mental Status: He is alert and oriented to person, place, and time. Gait: Gait normal. Psychiatric: Attention and Perception: Attention normal. Mood and Affect: Mood normal. Speech: Speech normal. Behavior: Behavior normal. Behavior is cooperative. Thought Content: Thought content includes suicidal ideation. Thought content does not include homicidal ideation. Thought content includes suicidal plan. MDM Medical Decision Making Ddx: alcohol intoxication, substance induced mood disorder, suicidal ideation Plan: cbc, cmp, ethanol, uds, ua Cd4, rpr, poct hiv, urine STD testing Amount and/or Complexity of Data Reviewed External Data Reviewed: notes. Details: 04/11/24: ED encounter for alcohol intoxication Labs: ordered. Risk Diagnosis or treatment significantly limited by social determinants of health. Risk Details: Drug and alcohol use ED Course as of 04/14/242120 Time: 04/14 1807 Value: Amphetamine, ur(!): Screen Positive, presumptive Comment: (Reviewed) By: Pooja Molina NP Time: 04/14 1807 Value: Cocaine(!): Screen Positive, presumptive Comment: (Reviewed) By: Pooja Molina NP Time: 04/14 1807 Value: Fentanyl, Ur(!): Screen Positive, presumptive Comment: (Reviewed) By: Pooja Molina NP Time: 04/14 1900 Value: Neutrophil abs(!!): 0.4 Comment: (Reviewed) By: Pooja Molina NP Time: 04/14 1902 Comment: I spoke with Dr. Soto in EM1 about patient with neutropenia. Plan to place patient in room alone in the [facility]. Will provide bactrim abx prophylaxis. Will consult both psych and ID By: Pooja Molina NP Time: 04/14 1913 Comment: Of note: pt had bedside I&D of dental abscess by otolaryngology on 04/04/2024. The patient did not continue oral abx when discharged from hospital. There is no dental abscess noted on exam today By: Pooja Molina NP Time: 04/14 1916 Comment: I spoke with ID. They recommend restarting biktarvy, bactrim and obtain new cd4 count. By: Pooja Molina NP Time: 04/14 1921 Comment: Psych will evaluate By: Pooja Molina NP Time: 04/14 1931 Value: XR Chest Pa Lateral 2 Vw Comment: IMPRESSION: Comparison is made to chest radiograph dated 10/27/2022. Cardiomediastinal silhouette is normal. Lungs are clear without consolidation, pleural effusion, or pneumothorax. By: Pooja Molina NP Time: 04/14 2012 Comment: Per psych, pt is ok for discharge. He is future planning and wants to go to rehab. [facility]. By: Pooja Molina NP Time: 04/14 2048 Comment: Per social work: bed at [facility] is not available. They will provide pt with outpatient substance use resources. 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 Per psych, can refill his psych meds (will only give him a short bridge prescription as pt has a history of impulsiveness). Even though pt has low neutrophil count, he does not have active infection. Chest xr is clear, respnasal swab is neg and there is no active dental abscess. He is afebrile. He should start taking hisbiktarvy and bactrim daily and follow up outpatient with ID. Pt is aware of his neutrophil level and the steps to take to avoid infection. By: Pooja Molina NP Time: 04/14 2121 Comment: Recs from ID on 04/04/24: Recommendations: - Continue Biktarvy. - The ID team counseled him strongly about follow up at [facility]. Please have him call to set up an appointment prior to discharge. - Start Bactrim DS 1 tablet daily for PJP prophylaxis in the setting of CD4 <200 and non-adherence. He previously tolerated this medication. - The ID team added on an HIV genotype that can be followed up by outpatient providers. - No treatment recommended for RPR 1:64, stable and may take a longer time for reduction in titer in patient with HIV. If titer increased in the future could be a sign of re-infection that needs treatment. By: Pooja Molina NP Final diagnoses: None Pooja Molina NP 04/14/24 1806 * Najma Linn RN - 04/14/2024 5:02 PM CDT Pt to ED BIBEMS after walking up to a store telling them that he was going to kill himself. Pt states that his addiction to meth is making him lose everything, so he purposely stopped taking all of his medications last month (Abilify, Biktarvy, cymbalta, buspirone, klonopin, and more). He states that he stopped taking his medication because he is done and just wants to already . He has a plan to kill himself with a gun. He states his friend has a gun, but got busy so he could not carry outhis plan. Pt is calm and cooperative, regular and unlabored breathing, VSS. He states the last timehe used meth was yesterday (04/13/24). PmHx: HIV, borderline personality disorder, syphilis documented in this encounter Miscellaneous Notes * ED Procedure Note - Pooja Molina NP - 04/14/2024 7:31 PM CDT Associated Order(s): Critical Care Procedure Critical Care Performed by: Pooja Molina NP Authorized by: Luis Soto MD Critical care provider statement: As reflected in the history, physical exam, orders, notes, and/or MDM, I was personally present while the patient was critically ill and provided critical care services for 30 minutes, excluding timeinvolved in separately billable procedures. Critical care was necessary to treat or prevent imminent or life- threatening deterioration of the following condition(s): suicidal/homicidal ideation Critical care was time spent by me providing the following: psychological evaluation with medical clearance I provided emergent necessary critical care medicine [...] spent time documenting in the medical record. Pooja Molina NP 04/14/241930 * Plan of Care - Sue Breaux RN - 04/14/2024 5:37 PM CDT ED CM received automated alert that patient has had an inpatient admission <30 days (DC 04/10/24;ED treatment team aware). Complete chart review not completed d/t imminent psychiatric admission; diagnosis suicidal ideation; has weapon, hopelessness, plan, substance abuse. No ED CM/SW needs identified; inpatient CM/SW will follow. documented in this encounter Plan of Treatment Not on file documented as of this encounter Procedures Procedure Name Priority Date/Time Associated Diagnosis Comments SC CRITICAL CARE ILL/INJURED PATIENT INIT 30-74 MIN Routine 04/14/2024 7:31 PM CDT XR CHEST PA LATERAL 2 VIEWS ED 04/14/2024 7:25 PM CDT RESPIRATORY PATHOGEN PANEL Routine 04/14/2024 7:11 PM CDT N. GONORRHOEAE/C. TRACHOMATIS AMPLIFICATION STAT 04/14/2024 5:16 PM CDT TRICHOMONAS VAGINALIS PCR Routine 04/14/2024 5:16 PM CDT EGFR STAT 04/14/2024 5:16 PM CDT RPR TITER STAT 04/14/2024 5:16 PM CDT URINALYSIS AND REFLEX TO MICROSCOPIC AND CULTURE STAT 04/14/2024 5:16 PM CDT CBC WITH AUTO DIFFERENTIAL STAT 04/14/2024 5:16 PM CDT DRUGS OF ABUSE SCREEN, URINE WITHOUT CONFIRMATION STAT 04/14/2024 5:16 PM CDT MANUAL DIFFERENTIAL STAT 04/14/2024 5 :16 PM CDT RPR STAT 04/14/2024 5:16 PM CDT URINALYSIS, MICROSCOPIC ONLY STAT 04/14/2024 5:16 PM CDT T-HELPER CELLS (CD4) COUNT STAT 04/14/2024 5:16 PM CDT ETHANOL STAT 04/14/2024 5:16 PM CDT COMPREHENSIVE METABOLIC PANEL STAT 04/14/2024 5:16 PM CDT documented in this encounter Results * SC CRITICAL CARE ILL/INJURED PATIENT INIT 30-74 MIN (04/14/2024 7:31 PM CDT) Narrative Pooja Molina NP - 04/14/2024 7:31 PM CDT Pooja Molina NP ? 04/14/2024 ??7:31 PM Critical Care Performed by: Pooja Molina NP Authorized by: Luis Soto MD ?? Critical care provider statement: As reflected in the history, physical exam, orders, notes, and/or MDM, I was personally present while the patient was critically ill and provided critical care services for 30 minutes, excluding time involved in separately billable procedures. ??Critical care was necessary to treat or prevent imminent or life-threatening deterioration of the following condition(s): ?? suicidal/homicidal ideation ??Critical care was time spent by me providing the following: ? psychological evaluation with medical clearance ?? I provided emergent necessary critical care [...] time documenting in the medical record. us Luis Soto MD IN CLINIC/BEDSIDE ORDERAB LES Final Result * XR Chest Pa Lateral 2 Vw (04/14/2024 7:25 PM CDT) Anatomical Region Laterality Modality Body, Chest N/A Computed Radiogr aphy 04/14/2024 7:28 PM CDT Impressions 04/14/2024 7:33 PM CDT Comparison is made to chest radiograph dated 10/27/2022. Cardiomediastinal silhouette is normal. ??Lungs are clear without consolidation, pleural effusion, or pneumothorax. Dictated by: Brandy Do MD, PhD The radiology attending physician has personally reviewed this study, and had reviewed and/or edited this written report and agrees with it. Electronically signed by: Noaln Mckay M.D. Narrative 04/14/2024 7:33 PM CDT EXAMINATION: 2 view chest radiograph Procedure Note Nolan Mckay MD - 04/14/2024 EXAMINATION: 2 view chest radiograph IMPRESSION: Comparison is made to chest radiograph dated 10/27/2022. Cardiomediastinal silhouette is normal. Lungs are clear without consolidation, pleural effusion, or pneumothorax. Dictated by: Brandy Do MD, PhD The radiology attending physician has personally reviewed this study, and had reviewed and/or edited this written report and agrees with it. Electronically signed by: Nolan Mckay M.D. us Pooja Molina ELEVATOR RUNNER IMG XR PROCEDURES Final R esult * Respiratory pathogen panel Nasopharyngeal (04/14/2024 7:11 PM CDT) Influenza A RNA Not Detected Not Detected Influenza B RNA Not Detected Not Detected [facility] RSV RNA Not Detected Not Detected [facility] COVID-19 RNA Not Detected Not Detected [facility] Coronavirus 229E RNA Not Detected Not Detected [facility] Coronavirus HKU1 RNA Not Detected Not Detected [facility] Coronavirus NL63 RNA Not Detected Not Detected [facility] Coronavirus OC43 RNA Not Detected Not Detected [facility] Adenovirus DNA Not Detected Not Detected [facility] Metapneumovirus RNA Not Detected Not Detected [facility] Rhinovirus/Enterov irus RNA Not Detected Not Detected [facility] Parainfluenza 1 RNA Not Detected Not Detected [facility] Parainfluenza 2 RNA Not Detected Not Detected [facility] Parainfluenza 3 RNA Not Detected Not Detected [facility] Parainfluenza 4 RNA Not Detected Not Detected [facility] B. pertussis DNA Not Detected Not Detected [facility] B. parapertussis DNA Not Detected Not Detected [facility] C. pneumoniae DNA Not Detected Not Detected [facility] M. pneumoniae DNA Not Detected Not Detected [facility] Nasopharyngeal 04/14/2024 7: 11 PM CDT 04/14/2024 7:22 PM CDT Narrative [facility] - 04/14/2024 8:27 PM CDT Is the Patient experiencing symptoms consistent with COVID?->No Surveillance testing for transplant patient?->No ??Interpretive Data [employer] FilmArray Respiratory Panel (RP2.1) assay is a multiplexed real-time PCR based nucleic acid test capable of simultaneous qualitative detection and identification of multiple respiratory viral and bacterial nucleic acids, including SARS Coronavirus 2 (the causative agent of COVID-19). The following bacteria, viruses and virus subtypes can be identified using the FilmArray RP2.1 assay: Bordetella pertussis, Bordetella parapertussis, Chlamydia pneumoniae, Mycoplasma pneumoniae, Adenovirus, SARS Coronavirus 2, seasonal coronaviruses (Coronavirus HKU1, Coronavirus NL63, Coronavirus 229E, and Coronavirus OC43), Influenza A, Influenza A subtype H1, Influenza A subtype H3, Influenza A subtype 2009 H1, Influenza B, Metapneumovirus, Parainfluenza 1, Parainfluenza 2, Parainfluenza 3, Parainfluenza 4, RSV, Rhinovirus/Enterovirus. Due to the genetic similarity between human Rhinovirus and Enterovirus, the FilmArray RP2.1 assay cannot reliably differentiate them. Coronavirus OC43 may cross-react with some isolates of Coronavirus HKU1. ??A dual positive result may be due to cross-reactivity or may indicate a co-infection. The detection and identification of specific viral and bacterial nucleic acids from individuals exhibiting signs and symptoms of a respiratory infection aids in the diagnosis of respiratory infection if used in conjunction with other clinical and epidemiological information. ??The results of this test should not be used as the sole basis for diagnosis, treatment, or other management decisions. ??Negative results in the setting of a respiratory illness may be due to infection with pathogens that are not detected by this test. ??Positive results do not rule out infection/co-infection with other organisms. ??The agent(s) detected by the FilmArray RP2.1 may not be the definite cause of disease. ??Additional testing (lab, imaging, etc.) may be necessary when evaluating a patient with possible respiratory tract infection. The FilmArray RP2.1 assay has FDA clearance for testing of ELEVATOR RUNNER swabs. ??The performance of additional specimen types has been assessed by the performing laboratory. ??The performance characteristics of this assay have been determined by [facility] Infectious [facility]. Current interpretive data was last revised on 22. Pooja Molina NP LAB MICROBIOLOGY - GENERA L ORDERABLES Final Result Performing Organization Address City/[facility]/ZIP Co de Phone Number JO[facility] Department [place] [address] * (ABNORMAL) RPR Titer Blood (04/14/2024 5:16 PM CDT) RPR qn 1:512(A) Nonreactive Blood 04/14/2024 5:16 PM CDT 04/14/2024 5:34 PM CDT Pooja Molina NP LAB MICROBIOLOGY - GENERA L ORDERABLES Final Result Performing Organization Address City/[facility] Co de Phone Number [facility]E [facility] Department [place] [address] * (ABNORMAL) Manual Differential (04/14/2024 5:16 PM CDT) Differential Manual Cells Counted 115 [facility] Neutrophil abs 0.4(C) 1.5 - 6.5 K/cumm [facility] Comment:Critical result call ed to and read back by MICHELLE ZAVALA RN on 04 14 2024 at 1848 to Yanet Razo. Imm gran abs 0.0 0.0 - 0.1 K/cumm [facility] Lymphocyte abs 2.0 0.8 - 3.3 K/cumm [facility] Monocyte abs 0.1(L) 0.2 - 0.8 K/cumm [facility] Eosinophil abs 0.0 0.0 - 0.5 K/cumm [facility] Basophil abs 0.0 0.0 - 0.1 K/cumm [facility] Neutrophil pct 14.8 % [facility] Comment: Interpretive Data Percent cell count reference ranges are not reported, since discordance with absolute values may lead to misinterpretation of CBC data. Current Interpretive Data was last revised on 2017. Lymphocyte pct 77.3 % [facility] Comment: Interpretive Data Percent cell count reference ranges are not reported, since discordance with absolute values may lead to misinterpretation of CBC data. Current Interpretive Data was last revised on 2017. Monocyte pct 3.5 % [facility] Comment: Interpretive Data Percent cell count reference ranges are not reported, since discordance with absolute values may lead to misinterpretation of CBC data. Current Interpretive Data was last revised on 2017. Eosinophil pct 0.9 % [facility] Comment: Interpretive Data Percent cell count reference ranges are not reported, since discordance with absolute values may lead to misinterpretation of CBC data. Current Interpretive Data was last revised on 2017. Basophil pct 0.9 % [facility] Comment: Interpretive Data Percent cell count reference ranges are not reported, since discordance with absolute values may lead to misinterpretation of CBC data. Current Interpretive Data was last revised on 2017. Metamyelocyte pct 0.9 % [facility] Variant lymph pct 1.7 % [facility] Blood 04/14/2024 5:16 PM CDT 04/14/2024 5:52 PM CDT Pooja Molina NP LAB BLOOD ORDERABLES Antonina jhaveri Result [facility] [place] [address] * eGFR (04/14/2024 5:16 PM CDT) eGFR >90 >=60 mL/min/1. 73 [...] interpretive data was last reviewed 2021. Blood 04/14/2024 5:16 PM CDT 04/14/2024 5:34 PM CDT us Pooja Molina NP LAB BLOOD ORDERABLES Antonina l Result Performing Organization Address City/[facility]/ZIP Co de Phone Number [facility] [place] [address] * (ABNORMAL) Urinalysis, microscopic only (04/14/2024 5:16 PM CDT) [facility] WBC, ur 0-5 0 - 5 /HPF RBC, ur 0-2 0 - 2 /HPF [facility] Epithelial cells, squamous, ur 1-5 0 - 5 /HPF [facility] Bacteria, ur Trace(A) [facility] Mucous, ur Present(A) [facility] Culture Reflex Comment Reflex conditions for urine culture (WBC >10) not met. [facility] Urine 04/14/2024 5:16 PM CDT 04/14/2024 5:24 PM CDT Pooja Molina LAB URINE ORDERABLES Antonina l Result Performing Organization Address [facility] Co de Phone Number [facility] [place] [address] * (ABNORMAL) T-helper cells (CD4) count (04/14/2024 5:16 PM CDT) [facility] CD4 pct 9(L) 31 - 64 % CD4 Absolute 140(L) 365 - 1,294 cells/mcL [facility] Blood 04/14/2024 5:16 PM CDT 04/14/2024 5:31 PM CDT Pooja Molina ELEVATOR [employer]NER LAB BLOOD ORDERABLES Antonina l Result Performing Organization Address City/[facility]/[place] [address] * Trichomonas vaginalis PCR Urine (04/14/2024 5:16 PM CDT) Trichomonas DNA Not Detected Not Detected [facility] Comment: Interpretive Data This assay detects Trichomonas vaginalis by nucleic acid amplification testing (NAAT). This assay has been cleared by the [place] Food and Drug administration. The performance characteristics of this test have been verified by the [facility]. Excess blood in specimens may be inhibitory and result in false negative results. ??The performance of this test has not been evaluated in women or individuals less than 18 years of age. Current Interpretive Data last revised 2023. Urine 04/14/2024 5:16 PM CDT 04/14/2024 5:31 PM CDT Pooja Molina NP LAB MICROBIOLOGY - GENERA L ORDERABLES Final Result Performing Organization Address [facility] Co de Phone Number [facility] [employer] [place] [address] [facility] * N. gonorrhoeae/C. trachomatis Amplification Urine (04/14/2024 5:16 PM CDT) Pathologist [facility] C. trachomatis Not Detected Not Detected [facility] N. gonorrhoeae Not Detected Not Detected [facility] Comment: Interpretive Data This assay detects Chlamydia trachomatis and Neisseria gonorrhoeae by nucleic acid amplification testing (NAAT). This assay has been cleared by the [place] Food and Drug administration. The performance characteristics of this test have been verified by the [facility] laboratory. The performance characteristics of this test have not been evaluated in individuals less than 14 years of age. Current Interpretive Data last revised 2023. Urine (None) 04/14/2024 5:16 PM CDT 04/14/2024 5:31 PM CDT Pooja Molina NP LAB MICROBIOLOGY - GENERA L ORDERABLES Final Result Performing Organization Address [facility] Co de Phone Number [facility] [place] [address] [facility] * (ABNORMAL) RPR Blood (04/14/2024 5:16 PM CDT) RPR Reactive(A ) Nonreactive Blood 04/14/2024 5:16 PM CDT 04/14/2024 5:34 PM CDT Pooja Molina NP LAB MICROBIOLOGY - GENERA L ORDERABLES Final Result Performing Organization Address City/[facility] Co de Phone Number [facility] [place] [address] * (ABNORMAL) Urinalysis reflex to microscopic and culture Urine (04/14/2024 5:16 PM CDT) Color, ur Yellow Yellow Clarity, ur Clear Clear [facility] Specific gravity, ur 1.036(H) 1.003 - 1.030 [facility] pH, urine 6.5 [facility] Comment: Interpretive Data ? Urine pH is affected by diet, medications, systemic acid-base disturbances, and renal tubular function. ??pH may affect urinary stone formation. ??For example, urine pH below 6.0 may help reduce the tendency for calcium phosphate stones and pH greater than 6.0 may reduce the tendency for uric acid stone formation. Source: [facility] Current Interpretive Data was last revised on 2017 Protein, ur ql 1+(A) Negative [facility] Glucose, ur ql Negative Negative [facility] Ketones, ur Negative Negative [facility] Bilirubin, ur Negative Negative [facility] Blood, ur Negative Negative [facility] Urobilinogen, ur 4.0(A) <2.0 mg/dL [facility] Nitrite, ur Negative Negative [facility] Leukocyte esterase, ur Negative Negative [facility] UA reflex comment Reflex to microscopic UA will be performed. [facility] Urine 04/14/2024 5:16 PM CDT 04/14/2024 5:24 PM CDT us Pooja Molina NP LAB MICROBIOLOGY - GENERA L ORDERABLES Final Result [facility] [place] [address] * (ABNORMAL) Drugs of Abuse Screen, Urine without Confirmation (04/14/2024 5:16 PM CDT) [facility] Amphetamine, ur Screen Positive, presumptive (A) [...] 2023. Barbiturates, ur Not Detected CutOff 200ng/mL [facility] Comment: Interpretive Data - Barbiturates: ??Samples containing greater than 200 ng/mL secobarbital or other cross-reacting barbiturate compounds are reported as positive. ??False positive and false negative results are possible. Confirmatory testing required for definitive results. Current Interpretive Data was last reviewed 2023. Benzodiazepines, ur Not Detected CutOff 100ng/mL [facility] Comment: Interpretive Data - Benzodiazepines: ??Samples containing greater than 100 ng/mL nordiazepam or other cross-reacting compounds are reported as positive. False positive and false negative results are possible. Confirmatory testing required for definitive results. Current Interpretive Data was last reviewed 2023. Cannabinoids, ur Not Detected CutOff 50 ng/mL [facility] Comment: Interpretive Data - Cannabinoids: ??Samples containing greater than 50 ng/mL delta-9 THC -COOH or other cross-reacting compounds are reported as positive. ??False positive and false negative results are possible. ??Confirmatory testing required for definitive results. Current Interpretive Data was last reviewed 2023. Cocaine, ur Screen Positive, presumptive (A) CutOff 150ng/mL [facility] Comment: Interpretive Data - Cocaine: ??Samples containing greater than 150 ng/mL benzoylecgonine or other cross-reacting compounds are reported as positive. False positive and false negative results are possible. Confirmatory testing required for definitive results. Current Interpretive Data was last reviewed 2023. Fentanyl, Ur Screen Positive, presumptive (A) CutOff 5 ng/mL [facility] Comment: Interpretive Data - Fentanyl: ?? Samples containing greater than 5 ng/mL norfentanyl, fentanyl, or other cross-reacting fentanyl compounds are reported as positive. False positive and false negative results are possible. Confirmatory testing required for definitive results. Current Interpretive Data was last reviewed 2023. Methadone, ur Not Detected CutOff 300ng/mL [facility] Comment: Interpretive Data - Methadone: ??Samples containing greater than 300 ng/mL d,l-methadone or other cross-reacting compounds are reported as positive. ??False positive and false negative results are possible. Confirmatory testing required for definitive results. Current Interpretive Data was last reviewed 2023. Opiates, ur Not Detected CutOff 300ng/mL [facility] Comment: Interpretive Data - Opiates: ??Samples containing greater than 300 ng/mL morphine or other cross-reacting compounds are reported as positive. ??False positive and false negative results are possible. Confirmatory testing required for definitive results. Current Interpretive Data was last reviewed 2023. Oxycodone, ur Not Detected CutOff 100ng/mL [facility] Comment: Interpretive Data - Oxycodone: ??Samples containing greater than 100 ng/mL oxycodone or other cross-reacting compounds are reported as ??positive. ??False positive and false negative results are possible. Confirmatory testing required for definitive results. Current Interpretive Data was last reviewed 2023. Phencyclidine, ur Not Detected CutOff 25 ng/mL [facility] Comment: Interpretive Data - Phencyclidine: ??Samples containing greater than 25 ng/mL phencyclidine or other cross-reacting compounds are reported as positive. ??False positive and false negative results are possible. Confirmatory testing required for definitive results. Current Interpretive Data was last reviewed 2023. Urine Creatinine 330 mg/dL [facility] Comment: Interpretive Data Urine Creatinine: < 10 mg/dL is extremely dilute = or > 10 but < 20 mg/dL is dilute = or > 20 mg/dL is normal Current Interpretive Data was last revised on 2017. Urine 04/14/2024 5:16 PM CDT 04/14/2024 5:34 PM CDT Narrative [facility] - 04/14/2024 6:05 PM CDT Drug of Abuse screening is performed by immunoassay for medical purposes only. ??This is not to be used for Pain Management purposes. Pooja Molina ELEVATOR [employer]NER LAB URINE ORDERABLES Antonina l Result Performing Organization Address [facility] Co de Phone Number [facility] [place] [address] * Ethanol (04/14/2024 5:16 PM CDT) Pathologist [facility] Ethanol <10 <=10 mg/dL Comment: Interpretive Data Legal limit of intoxication > or = 80 mg/dL Levels > or = 400 mg/dL are potentially TOXIC. Current interpretive data was last revised on 2018. Blood 04/14/2024 5:16 PM CDT 04/14/2024 5:34 PM CDT Pooja Molina LAB BLOOD ORDERABLES Antonina l Result Performing Organization Address [facility] de Phone Number [facility] [place] [address] * (ABNORMAL) Comprehensive metabolic panel (04/14/2024 5:16 PM CDT) Pathologist [facility] Sodium 139 135 - 145 mmol/L Potassium, pl 4.3 3.3 - 4.9 mmol/L [facility] Chloride 103 97 - 110 mmol/L [facility] CO2 28 22 - 32 mmol/L [facility] Anion gap 8 2 - 15 mmol/L [facility] BUN 15 6 - 25 mg/dL [facility] Creatinine 1.08 0.80 - 1.30 mg/dL [facility] Glucose 85 70 - 199 mg/dL [facility] Comment: Interpretive Data Fasting glucose >/= [...] 2022. Calcium 8.8 8.5 - 10.3 mg/dL [facility] Bilirubin, total 0.3 0.1 - 1.2 mg/dL [facility] Protein, pl 8.7(H) 6.5 - 8.5 g/dL [facility] Albumin 4.2 3.5 - 5.0 g/dL [facility] Alk phos 80 40 - 130 Units/L [facility] ALT 27 7 - 55 Units/L [facility] AST 39 10 - 50 Units/L [facility] Blood 04/14/2024 5:16 PM CDT 04/14/2024 5:34 PM CDT Pooja Molina NP LAB BLOOD ORDERABLES Antonina l Result [facility] Department of Laboratories [place], [place] [id number] * (ABNORMAL) CBC with auto differential (04/14/2024 5:16 PM CDT) WBC 2.5(L) 3.8 - 9.9 K/cumm Hgb 13.4 13.0 - 17.5 g/dL [facility] Hct 42.0 38.9 - 50.3 % [facility] Plt 289 150 - 400 K/cumm [facility] MPV 9.5 9.1 - 12.3 fL [facility] RBC 5.08 4.30 - 5.80 M/cumm [facility] MCV 82.7 81.3 - 96.4 fL [facility] MCH 26.4(L) 27.1 - 33.3 pg [facility] MCHC 31.9(L) 32.3 - 35.7 g/dL [facility] RDW CV 14.8 11.1 - 14.9 % [facility] RDW SD 45.1 35.7 - 48.1 fL [facility] NRBC abs 0.00 0.00 - 0.01 K/cumm [facility] Blood 04/14/2024 5:16 PM CDT 04/14/2024 5:31 PM CDT us Pooja Molina NP LAB BLOOD ORDERABLES Antonina shakila Result [facility] [place] [address] documented in this encounter Visit Diagnoses Diagnosis Neutropenia, unspecified type (HCC)- Primary Polysubstance use disorder Suicidal ideation documented in this encounter Administered Medications Inactive Administered Medications - up to 3 most recent administrations Medication Order MAR Action Action Date Dose Rate Site bictegravir-emtricitabi ne-tenofovir (BIKTARVY) 50-200-25 mg per tablet 1 tablet 1 tablet, oral, Daily, First dose on Sun04/14/24 at 1918, May be dissolved in 240 mL of water. Give 2 hrs before or 6 hrs after MVI, antacids, or other products containing sucralfate, magnesium, aluminum, iron, or zinc., Indications: HIV infectionIndications:HI V infection Given 04/14/2024 8:14 PM CDT 1 tablet sulfamethoxazole-trimet hoprim (BACTRIM DS) 800-160 mg per tablet 160 mg of trimethoprim 160 mg of trimethoprim, oral, Daily, First dose on Sun04/14/24 at 1900, For 1 dose, Indications: Prophylaxis, MedicalIndications:Prop hylaxis, Medical Given 04/14/2024 7:11 PM CDT 160 mg of trimethoprim documented in this encounter Discontinued Medications Medication Sig Discontinue Reason Start Date End Da te DULoxetine DR (CYMBALTA) 60 mg capsule Take 1 capsule (60 mg total) by mouth daily 01/30/2024 04/14/2024 doxepin (SINEquan) 25 mg capsule Take 1 capsule (25 mg total) by mouth nightly 01/29/2024 04/14/2024 hydrOXYzine (ATARAX) 50 mg tablet Take 1 tablet (50 mg total) by mouth every 6 (six) hours as needed 02/08/2024 04/14/2024 ARIPiprazole (ABILIFY) 10 mg tabletIndications:Depres yuridia Treatment Adjunct Take 1 tablet (10 mg total) by mouth daily 04/10/2024 04/14/2024 documented as of this encounter Active and Recently Administered Medications Times are shown in CDT. Scheduled Medication Order 04/12/2024 04/13/2024 04/14/2024 xwmjrrvwmjq-fstxvagmmosgw-byqbsao ir (BIKTARVY) 50-200-25 mg per tablet 1 tablet 1 tablet, oral, Daily, First dose on Sun04/14/24 at 1918, May be dissolved in 240 mL of water. Give 2 hrs before or 6 hrs after MVI, antacids, or other products containing sucralfate, magnesium, aluminum, iron, or zinc., Indications: HIV infection 2013 (Given - Provid er: Michelle Zavala RN) sulfamethoxazole-trimethoprim (BACTRIM DS) 800-160 mg per tablet 160 mg of trimethoprim (COMPLETED) 160 mg of trimethoprim, oral, Daily, First dose on Sun04/14/24 at 1900, For 1 dose, Indications: Prophylaxis, Medical 1910 (Given - Provid er: Michelle Zavala RN) documented in this encounter Orders Medications Ordered That Prasad ht Not Have Been Administered Count Last Ordered Date First Ordered Date sulfamethoxazole-trimethopri m (BACTRIM DS) 800-160 mg per tablet 160 mg of trimethoprim 1 04/14/2024 Consult Count Last Ordered Date First Orde red Date IP CONSULT TO PSYCHIATRY 1 04/14/2024 IP CONSULT TO SOCIAL WORK 1 04/14/2024 documented in this encounter Care Teams Multi Needle Machine Operator Relationship Specialty Start Date End Date Mady Sullivan MD [address] [facility] [address] [place], [place] [id number] PCP - General Infectious Diseases 10/12/23 No, Physician 10/12/23 Nguyen Stephenson, RN [address] [facility] [address] [place] [address] SHOP Outpatient Grading Machine Operator 04/11/24 04/14/24 documented as of this encounter
--- OUTSIDE RECORDS SUMMARY | 2024-08-10 03:33 | XMS_ITS | Encounter Summary ---
Author Organization [facility] Address [address] [place] [address] Phone Care Team Providers Care Physical Therapy Assistant Instructor Name Role Phone Mady Sullivan MD Primary Care Provider No, Physician Unavailable Nguyen Stephenson RN Unavailable [phone] Encounter Details Date Type Department Care Team (Late st Contact Info) Description 06/05/2024 Ophth Exam [facility] Ophthalmology [address] [place] [address] 1[address] [place] [id number] Cuco Chavarria MD [id number] [place], [place] [id number] Social History Tobacco Use Types Packs/Day Years Used Date Smoking Tobacco: Former Cigarettes Passive Smoke Exposure: Current Smokeless Tobacco: Never [facility] Utilities Answer Date Recorded In the past 12 months has jslyhl, gas, oil, or water [employer] threatened to shut off services in your [...] How often do you attend chur or confucianist services? 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 Answer Date of Assessment Author No 02/24/2024 10:18 AM Cynthia Mcintyregasandor DickensSherine, AIDE * Are you blind or do you [...] 10:18 AM LAURO Summersjuan jose Manda Sherine, AIDE * Because of a physical, mental, or emotional condition, do you have serious difficulty doing errandsalone such as visiting the doctor? Answer Date of Assessment Author No 02/24/2024 10:18 AM TAYOJose Hardin, Mandakrissy Basurto AIDE documented as of this encounter Mental Status * Because of a physical, mental, or emotional condition, do you have serious difficulty concentrating, remembering, or making decisions? (5 years old or older) Answer Entry Date Author No 02/24/2024 10:18 AM TAYOJose Cynthia Hardingail Sherine, AIDE documented in this encounter Plan of Treatment Not on file documented as of this encounter Visit Diagnoses Not on filedocumented in this encounter Eye Exam Visual Acuity (Snellen - Linear) Right eye Left eye Near sc 20/20 20/30, 20/20 PH Tonometry (Tonopen, 2:03 PM) Right eye Left eye Pressure 9 14 Pupils Dark Light Shape React APD Right eye 5 2 Round Brisk None Left eye 5 2 Round Brisk None Visual Castro Right eye Left eye Full Full Extraocular Movement Right eye Left eye Full Full Neuro/Psych Oriented x3: Yes Mood/Affect: Normal Dilation Both eyes: 1.0% Mydriacyl, 2 .5% Phenylephrine @ 2:04 PM Color Right eye Left eye Ishihara /12 12/12 Slit Lamp Exam Right eye Left eye Lids/Lashes Normal Normal Conjunctiva/Sclera White and quiet White and nolberto et Cornea Clear Clear Anterior Chamber Deep and quiet Deep and quiet Iris Round and reactive Round and nataly ctive Lens Clear Clear Anterior Vitreous Normal, no vitritis Normal, no vitritis Fundus Exam Right eye Left eye Disc Normal Normal C/D Ratio 0.6 0.6 Macula Normal Normal Vessels Normal Normal Periphery Normal, no RT/RD, no chorioretinal lesions Normal, no RT/RD, no chorioretinal lesions Care Teams Physical Therapy Assistant Instructor Relationship Specialty Start Date End Date Mady Sullivan MD [address] [facility] [address] [place] [address] PCP - General Infectious Diseases 10/12/23 No, Physician 10/12/23 Nguyen Stephenson, RN [address] [facility] [address] [place], [place] [id number] SHOP Outpatient Boat Puller 06/09/24 06/11/24 documented as of this encounter
--- OUTSIDE RECORDS SUMMARY | 2024-08-10 03:33 | XMS_ITS | Encounter Summary ---
Author Organization [facility] Healthcare Address [address] [place] [address] Care Team Providers Care Camp Dining Room Attendant Name Role Phone Mady Sullivan MD Primary Care Provider No, Physician Unavailable Nguyen Stephenson RN Unavailable Reason for Visit * Reason Comments Unsuccessful Phone Call 2 Encounter Details Date Type Department Care Team (Late st Contact Info) Description 04/14/2024 SHOP/CHAP Initial Outreach [facility] OP CASE MANAGEMENT [address] [place] [address] Nguyen Stephenson, RN [address] [facility] [address] [id number] Social History Tobacco Use Types Packs/Day Years Used Date Smoking Tobacco: Former Cigarettes Passive Smoke Exposure: Current Smokeless Tobacco: Never [facility] Utilities Answer Date Recorded In the past 12 months has [facility] [employer], gas, oil, or water [facility] threatened to shut off services in your [...] How often do you attend chur or roman catholic services? Never 04/07/2024 Do you belong to any clubs o r organizations such as shinto groups, unions, fraternal or athletic groups, or [...] Date Recorded PHQ-2 Total Score 4 04/07/2024 [facility] - Occupational Stress Questionnaire Answer Date [...] place to sleep or slept in a fci (including now)? No 10/15/2023 Housing Stability Vital [...] the past 12 m [facility], were you homeless or living in a fci (including now)? 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 Answer Date of Assessment Author No 02/24/2024 10:18 AM CDManda Ibrahimia, GLASS OR MIRROR INSPECTOR * Are you blind or do you have serious difficulty seeing, even when wearing glasses? Answer Date of Assessment Author No 02/24/2024 10:18 AM CDManda Ibrahimricia, GLASS OR MIRROR INSPECTOR * Do you have serious difficulty walking or climbing stairs? Answer Date of Assessment Author No 02/24/2024 10:18 AM CDManda Ibrahimricia, GLASS OR MIRROR INSPECTOR * Do you have serious difficulty dressing or bathing? Answer Date of Assessment Author No 02/24/2024 10:18 AM CDManda Ibrahimricia, GLASS OR MIRROR INSPECTOR * Because of a physical, mental, or emotional condition, do you have serious difficulty doing errandsalone such as visiting the doctor? Answer Date of Assessment Author No 02/24/2024 10:18 AM LAURO Hardin Manda Hoodia, GLASS OR MIRROR INSPECTOR documented as of this encounter Mental Status * Because of a physical, mental, or emotional condition, do you have serious difficulty concentrating, remembering, or making decisions? (5 years old or older) Answer Entry Date Author No 02/24/2024 10:18 AM Manda Mcintyre, GLASS OR MIRROR INSPECTOR documented in this encounter Plan of Treatment Not on file documented as of this encounter Visit Diagnoses Not on filedocumented in this encounter Care Teams Camp Dining Room Attendant Relationship Specialty Start Date End Date Mady [place] MD [address] [id number] PCP - General Infectious Diseases 10/12/23 No, Physician 10/12/23 Nguyen Stephenson RN [address] [facility] [address] [id number] SHOP Outpatient Precision Lens Generator 04/11/24 04/14/24 documented as of this encounter
--- OUTSIDE RECORDS SUMMARY | 2024-08-10 03:33 | XMS_ITS | Encounter Summary ---
Author Organization [facility] Healthcare Address [address] [place] [address] Care Team Providers Care Master At Arms Name Role Phone Mady Sullivan MD Primary Care Provider No, Physician Unavailable Nguyen Stephenson RN Unavailable [phone] Reason for Visit * Reason Comments Unsuccessful Phone Call 1 Encounter Details Date Type Department Care Team (Late st Contact Info) Description 04/11/2024 SHOP/CHAP Initial Outreach [facility] OP CASE MANAGEMENT [address] [place] [address] Nguyen [place], RN [address] [facility] [address] [place] [address] Social History Tobacco Use Types Packs/Day Years Used Date Smoking Tobacco: Former Cigarettes Passive Smoke Exposure: Current Smokeless Tobacco: Never [facility] Utilities Answer Date Recorded In the past 12 months has [facility] [employer], gas, oil, or water [employer] threatened to shut off services in [...] How often do you attend chur or judaism services? Never 04/07/2024 Do you belong to [...] Date Recorded PHQ-2 Total Score 4 04/07/2024 [facility] - Occupational Stress Questionnaire Answer Date [...] or slept in a mcfp (including now)? No 10/15/2023 Housing Stability Vital Sign Answer Jerrod e Recorded In the last 12 months, was t here a time when you were not able to pay the mortgage or rent on time? No 04/07/2024 In the past 12 months, how m any times have you moved where you were living? 0 04/07/2024 At any time in the past 12 m [facility], were you homeless or living in a mcfp (including now)? 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 Answer Date of Assessment Author No 02/24/2024 10:18 AM CDT Manda Hardin, CONTACT LENS BLOCKER AND CUTTER * Are you blind or do you have serious difficulty seeing, even when wearing glasses? Answer Date of Assessment Author No 02/24/2024 10:18 AM CDT Manda Hardinricia, CONTACT LENS BLOCKER AND CUTTER * Do you have serious difficulty walking or climbing stairs? Answer Date of Assessment Author No 02/24/2024 10:18 AM CDT Manda Hardinia, CONTACT LENS BLOCKER AND CUTTER * Do you have serious difficulty dressing or bathing? Answer Date of Assessment Author No 02/24/2024 10:18 AM CDT Manda Hardinia, CONTACT LENS BLOCKER AND CUTTER * Because of a physical, mental, or emotional condition, do you have serious difficulty doing errandsalone such as visiting the doctor? Answer Date of Assessment Author No 02/24/2024 10:18 AM CDT Manda Hardin, CONTACT LENS BLOCKER AND CUTTER documented as of this encounter Mental Status * Because of a physical, mental, or emotional condition, do you have serious difficulty concentrating, remembering, or making decisions? (5 years old or older) Answer Entry Date Author No 02/24/2024 10:18 AM CDT Manda Hardin MSW documented in this encounter Plan of Treatment Not on file documented as of this encounter Visit Diagnoses Not on filedocumented in this encounter Additional Health Concerns Infection Onset Date Last Indicated Resolved Time Ring Surveillance 04/06/2024 04/06/2024 04/13/2024 3:05 AM CDT documented as of this encounter Care Teams Master At Arms Relationship Specialty Start Date End Date Mady Sullivan MD [address] [facility] [address] [place] [address] PCP - General Infectious Diseases 10/12/23 No, Physician 10/12/23 Nguyen [place], RN [address] 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
--- OUTSIDE RECORDS SUMMARY | 2024-08-10 03:33 | XMS_ITS | Encounter Summary ---
Author Organization [facility] Healthcare Address [address] [place] [id number] Care Team Providers Care Supervisor Drilling And Shooting Name Role Phone Mady Sullivan MD Primary Care Provider No, Physician Unavailable Encounter Details Date Type Department Care Team (Late st Contact Info) Description 04/10/2024 Telephone [facility] [address] [place] [address] 4[address] [place] [address] Marisol Subramanian Social History Tobacco Use Types Packs/Day Years Used Date Smoking Tobacco: Former Cigarettes Passive Smoke Exposure: Current Smokeless Tobacco: Never [facility] Utilities Answer Date Recorded In the past 12 months has [employer], gas, oil, or water company threatened to shut off services in your [...] often do you attend chur ch or mosque services? Never 04/07/2024 Do you belong to [...] Date Recorded PHQ-2 Total Score 4 04/07/2024 [facility] - Occupational [...] or slept in a halfway (including now)? No 10/15/2023 Housing Stability Vital Sign Answer Jerrod e Recorded In the last 12 months, was t here a time when you were not able to pay the mortgage or rent on time? No 04/07/2024 In the past 12 months, how m any times have you moved where you were living? 0 04/07/2024 At any time in the past 12 m [facility], were you homeless or living in a halfway (including now)? 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 Answer Date of Assessment Author No 02/24/2024 10:18 AM CDT Manda Hardin, TRAFFIC I MANAGER * Do you have serious difficulty dressing or bathing? Answer Date of Assessment Author No 02/24/2024 10:18 AM CDT Manda Hardin, TRAFFIC I MANAGER * Because of a physical, mental, or emotional condition, do you have serious difficulty doing errandsalone such as visiting the doctor? Answer Date of Assessment Author No 02/24/2024 10:18 AM CDT Manda Hardin MSW documented as of this encounter Mental Status * Because of a physical, mental, or emotional condition, do you have serious difficulty concentrating, remembering, or making decisions? (5 years old or older) Answer Entry Date Author No 02/24/2024 10:18 AM CDT Manda Hardin MSW documented in this encounter Miscellaneous Notes * Telephone Encounter - Marisol Subramanian - 04/10/2024 10:15 AM CDT Lmom schedule pt neuro appointment documented in this encounter Plan of Treatment Not on file documented as of this encounter Visit Diagnoses Not on filedocumented in this encounter Additional Health Concerns Infection Onset Date Last Indicated Resolved Time [facility] Surveillance 04/06/2024 04/06/2024 04/13/2024 3:05 AM CDT documented as of this encounter Care Teams Supervisor Drilling And Shooting Relationship Specialty Start Date End Date Mady Sullivan MD [address] [facility] [address] [place] [address] PCP - General Infectious Diseases 10/12/23 No, Physician 10/12/23 documented as of this encounter
--- OUTSIDE RECORDS SUMMARY | 2024-08-10 03:33 | XMS_ITS | Encounter Summary ---
Author Organization [facility] Healthcare Address [address] [place] [address] Care Team Providers Care Signal Operator Linguist Name Role Phone Mady Sullivan MD Primary Care Provider No, Physician Unavailable Reason for Visit * Reason Comments Psychiatric Evaluation * Auth/Cert (Routine) Specialty Diagnoses / Procedures Referred By Contac t Referred To Contact Diagnoses Respiratory acidosis Intentional benzodiazepine overdose, initial encounter ([facility]) Low CD4 cell count determined by flow cytometry Diarrhea, unspecified type Nonadherence to medication Procedures n/a Referral ID Status Reason Start Date Expiration Date Visits Re quested Visits Authorized [id number] 1 1 Encounter Details Date Type Department Care Team (Latest Contact Info) Description 06/02/2024 9:09 AM ORACLE HRMS CONSULTANT - 06/07/2024 1:03 PM ORACLE HRMS CONSULTANT Hospital Encounter [facility] [address] [place] [address] Calvin Sainz MD [address] [place] [address] Jaci Menon MD [address] [place] [address] Nadeem Locke MD [address] [place] [address] Olegario Gonsales MD [address] [place] [address] Rahel Miller MD [address] [place] [address] Intentional benzodiazepine overdose, initial encounter (HCC) (Primary Dx); Diarrhea, unspecified type; Respiratory acidosis; Nonadherence to medication; Low CD4 cell count determined by flow cytometry; Borderline personality disorder (CMS/HCC) (HCC) [F60.3]; HIV infection, unspecified symptom status ([facility]) Discharge Disposition: Discharge to home or self care Social History Tobacco Use Types Packs/Day Years Used Date Smoking Tobacco: Former Cigarettes Passive Smoke Exposure: Current Smokeless Tobacco: Never [facility] [employer] Answer Date Recorded In the past 12 months has [facility] [employer] gas, oil, or water [employer]adi threatened to shut off services in your [...] often do you attend chur ch or amish services? Patient unable to answer 06/04/2024 Do you belong to any clubs o r organizations such as methodist groups, unions, fraternal or athletic groups, or [...] Date Recorded PHQ-2 Total Score 4 04/07/2024 [facility] Occupat ional [facility] - Occupational Stress Questionnaire Answer Date [...] living in a halfway (including now)? Yes 06/04/2024 Personal Safety Answer [...] on file Legal Sex Male 11:02 PM ORACLE HRMS CONSULTANT Gender Identity Not on file Sexual Orientation Not on file Occupation Industry Job Start Date Job End Date unemployed Not on file Not on file Not on file documented as of this encounter Last Filed Vital Signs Vital Sign Reading Time Taken Comments Blood Pressure 119/63 06/07/2024 7:16 AM ORACLE HRMS CONSULTANT Pulse 73 06/07/2024 7:16 AM ORACLE HRMS CONSULTANT Temperature 36.2 ??C (97.2 ??F) 06/07/2024 7:16 AM CS T Respiratory Rate 20 06/07/2024 7:16 AM ORACLE HRMS CONSULTANT Oxygen Saturation 99% 06/07/2024 7:16 AM ORACLE HRMS CONSULTANT Inhaled Oxygen Concentration - - Weight 68 kg (149 lb 14.4 oz) 06/03/2024 5:51 PM ORACLE HRMS CONSULTANT Height 182.9 cm (6') 06/03/2024 5:51 PM ORACLE HRMS CONSULTANT Body Mass Index 20.33 06/03/2024 5:51 PM ORACLE HRMS CONSULTANT documented in this encounter Functional Status * Are you deaf or do you have serious difficulty hearing? Answer Date of Assessment Author No 02/24/2024 10:18 AM CDManda Ibrahim, SUPERINTENDENT CONTAINER TERMINAL * Are you blind or do you have serious difficulty seeing, even when wearing glasses? Answer Date of Assessment Author No 02/24/2024 10:18 AM CDManda bIrahim, SUPERINTENDENT CONTAINER TERMINAL * Do you have serious difficulty walking or climbing stairs? Answer Date of Assessment Author No 02/24/2024 10:18 AM CDManda Ibrahim, SUPERINTENDENT CONTAINER TERMINAL * Do you have serious difficulty dressing or bathing? Answer Date of Assessment Author No 02/24/2024 10:18 AM CDManda Ibrahim, SUPERINTENDENT CONTAINER TERMINAL * Because of a physical, mental, or emotional condition, do you have serious difficulty doing errandsalone such as visiting the doctor? Answer Date of Assessment Author No 02/24/2024 10:18 AM CDManda Ibrahim MSW documented as of this encounter Mental Status * Because of a physical, mental, or emotional condition, do you have serious difficulty concentrating, remembering, or making decisions? (5 years old or older) Answer Entry Date Author No 02/24/2024 10:18 AM Manda Mcintyre MSW documented in this encounter Discharge Summaries * Caitlyn Salinas MD - 06/07/2024 11:02 AM CST Inpatient Discharge Summary BRIEF OVERVIEW Admitting Provider: Nadeem Locke MD Discharge Provider: RAHEL MILLER Primary Care Physician at Discharge: Mady Sullivan MD [phone] Admission Date: 06/02/2024 Discharge Date: 06/07/2024 Admission Location: [facility] Problems/Diagnoses: Principal Problem: Intentional benzodiazepine overdose, initial encounter ([facility]) Resolved Problems: No resolved hospital problems. DETAILS OF HOSPITAL STAY Presenting Problem/History of Present Illness: Per admission H&P 06/03: 28 y.o. male with PMHx HIV (previously on HAART on Biktarvy, last dose reportedly 1 month ago), PTSD, amphetamine use who presents after overdose of benzodiazepines. Patient has extensive history of suicidal ideation with frequent (near weekly) presentations to EDs. Personal stressors include unstable housing and being bazzi with unsupportive family - reports he came out this week and was told he is going to hel . Per note from 05/10/24 ED visit patient had 20 visits for SI in the previous 3 months. Has been evaluated multiple times in past by psych and foundto have chronic low-level SI without benefit from hospitalization. Patient reports he had fight with mother and was tired of it , and reports he took prescribed 27 2mg tablets of alprazolam. UDS negative for benzodiazepines, and per psych note no prescription history of benzos and mother reports she had not heard from him in month. On arrival to ED bradycardic to 40s but normotensive, satting well on RA, non-tachycardic, afebrile. Somnolent though rousable and noted to have hyperreflexia. Lab workup demonstrates CMP w/ hypoglycemia to 57, total protein 9.2, w/ borderline elevated protein gap, blood gas 7.22/61/35, CK 361, lactate 2.3, CBC unremarkable. Tox consulted in ED who deferredflumazenil given stability and improvement in VBG, and reported history of seizures. Psych consulted in ED, though note not completed at this time. Patient mentation improved in ED but continued to have acidosis - given this and diarrhea was admitted to medicine. Patient reports several days of diarrhea over past several days, with poor PO and intermittent trace BRB in stools. Has never had this before. Denies fevers, chills, rashes. No overt provoking events, no recent travel, no foods. Does report new sexual partner in last week. Patient has hx of HIV on biktarvy. Was diagnosed 2017 with a CD4 count of 64. Has followed with at [facility], with successful HIV suppression in 2022 and improvement in CD4 to 202. Has had multiple hospitalizations during which he reported inconsistent biktarvy use. Reports he last took ~1 month ago. CD4 count in ED 169. Review of chart from multiple recent hospitalizations demonstrates ID notes suggesting that syphilis was previously treated and will likely require significant time for titers to return to baseline iso concurrent HIV (was as high as 1:1028 03/15). Hospital Course: #HIV #Fever #Neck Stiffness #Diarrhea Diagnosed in 2018, on biktarvy though inconsistent adherence. CD4 count on presentation 169, improved from 3 weeks and 1 month ago. Patient with several days of diarrhea, continuing in ED. Reported intermittent bright blood in diarrhea. Hgb stable, no leukocytosis. Throughout hospitalization would say he had ~4 episodes of diarrhea; however, this was unable to confirmed with nursing staff. Hep B and C serologies negative. CMV IgG positive, IgM negative, titer 36. Crypto serum antigen negative. Stool culture negative for pathogens with shiga toxin negative. Patient frequently refused repeat stool studies, blood work, urine studies, or throat or rectal G/C swabs. Pt reported improvement in diarrhea with imodium. Patient began endorsing neck stiffness, blurry vision with floaters on 06/04 PM. Patient with 102.8fever on 06/05 AM. Patient originally given vanc and cefe. ID consulted, given new neck stiffness and concern for possible meningitis, patient transitioned to acyclovir and ceftriaxone. Patient underwent LP which was unremarkable and negative for infection. Antibiotics were discontinued prior to discharge. Biktarvy was able to be resumed prior to discharge and patient was started on bactrim 160 mg 3x weekly for PJP prophylaxis. On discharge, patient stated he had resolution of his abdominal pain, neck stiffness, and diarrhea and had been afebrile for 48 hours. 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 Treated w/ 3 doses penicillin at that time. Serologies persistently low but elevated, per ID likely slow to return to negative iso HIV. Low concern for active infection. 1:512 at last admission. Repeat RPR 1:32 during this admission. Ophthalmology consulted for blurry vision. Exam reassuring and without evidence of ocular syphilis. Recommended outpatient optho follow up for incidentally elevated enlarged CDR (poss glaucoma). #Benzodiazepine Overdose Ingested 27 2mg tabs of xanax. Brought to ED slightly bradycardic, otherwise hemodynamically stable. Evaluated by tox in ED, no indication for flumazenil. UDS positive for amphetamines, cocaine, no benzos in UDS and no history of being prescribed these. Unclear how this was obtained or whether UDS without benzos is false negative. Mentating normally on arrival to floor without respiratory distress. No signs of withdrawal present during hospitalization. #Suicidal Ideation History of multiple psychiatric hospitalizations and presentations for SI, 25+ presentations to ED thus far this year. Home regimen abilify, doxepine, and duloxetine. Frequently evaluated by psych who assess patient as having chronic SI rarely meeting criteria for admission. Psychiatry consulted; patient would likely not benefit from inpatient admission to psychiatry given chronic SI, and that patient's SI is concerning for secondary gain. Patient's psychotropic medications were held during thehospitalization. Outpatient follow up with [facility] or sober living facility or substance free rehab resources were provided. However, patient denies interest in outpatient rehab at this time. Patient will require outpatient follow up with psychiatry in regards to medication management of his depression and chronic SI. Active Issues Requiring Follow-up: -Patient will need follow up with ID outpatient for management of his HIV and Biktarvy regimen. -Psychiatry recommended that patient has chronic SI and would not benefit from inpatient admission,recommend rehab counseling for his substance use. Patient declined at this time, [facility] resources provided by social work at discharge. Will need outpatient follow up with psychiatry for medication management. -CT Head 06/05/24: demonstrated hypodensity in the right atnerior temporal lobe most likely streak artifact, recommend brain MRI for further evaluation. Will recommend follow up MRI outpatient. Ophthalmology recommended outpatient optho follow up for incidentally elevated enlarged CDR (poss glaucoma). Test Results Pending at Discharge: Pending Labs Order Current Status Protein, total, CSF Collected (06/06/24 1206) Sepsis Lactate w/ Reflex Collected (06/02/24 1334) CRP (acute phase) In process Creatine kinase (CK), total In process Cryptosporidium and Giardia antigen assay Stool In process Erythrocyte sedimentation rate In process Lipid panel In process Sepsis Lactate w/ Reflex In process T-helper cells (CD4) count In process VDRL, CSF CSF In process Blood culture Blood Preliminary result Mycology (fungal) culture and Cryptococcus antigen, CSF CSF Preliminary result Operative Procedures Performed: Other Procedures: Lumbar Puncture 06/06 Pertinent Test Results: -CT Head 06/05/24: demonstrated hypodensity in the right atnerior temporal lobe most likely streak artifact, recommend brain MRI for further evaluation. Will recommend follow up MRI outpatient. Discharge Details Physical Exam at Discharge: Discharge Condition: stable Pulse: 73 Resp: 20 BP: 119/63 Temp: 36.2 ??C (97.2 ??F) Weight: 68 kg (149 lb 14.4 oz) Pertinent Exam Findings at Discharge: Patient notes no abdominal tenderness or neck stiffness on exam. Patient breathing comfortably on room air. Discharge Disposition: Discharge to home or self care Code Status at Discharge: Full Code Discharge Instructions: Dear Kaveh Phil Chase, You were admitted to [facility] from 06/02/2024 to 06/07/2024 for concern for drug overdose. You were seen by our psychiatrists who recommended that you undergo inpatient rehab for your drug use. However you declined at this time, we have provided resources for [facility] if you change your mind. During your admission you were found to have a fever. You received IV antibiotics and you underwent blood cultures and a lumbar puncture. The lumbar puncture was normal, and the IV antibiotics were able to be discontinued. We recommend restarting your anti-viral therapy for treatment of your HIV. Please present to medical attention (by calling your PCP, calling 911, or going to an emergency d epartment) if you experience fevers, confusion, or shortness of breath. Please START the following medication: Biktarvy 1 tablet by mouth daily Imodium 2 mg as needed for diarrhea Bactrim one tablet 3 times a week for infection prophylaxis Please STOP the following medication: None Please CONTINUE all other original home medications as they were prescribed. You have the following appointments scheduled: No future appointments. Your primary care provider is Mady Sullivan MD and can be reached at [phone] We wish you the very best, [facility] [phone] Here is the information for [facility]. You can re-establish with [facility] at their walk in clinic at the following address. Please bring ID when you present to the clinic: [facility] [address] [place] [address] [phone] HOURS Sunday - Sunday 8:30 a.m. - 3:30 p.m. [facility] Walk In Clinic/Behavioral Health Rehabilitation Services: Please visit our [facility] at [address] [place] [address] during walk-in hours or schedule an appointment for an initial screening for short-term or long-term behavioral health rehabilitation services. [facility] walk-in hours are available Sunday through Sunday, 8:30-11 a.m. and 1-3 p.m. Appointments may be scheduled by calling [phone], Ext. [phone]. [facility] Behavioral Health - Same Day Access (SDA) [facility] Behavioral Health ([facility]) provides and coordinates an array of mental health services for citizens residing in [facility], [facility], and the [facility] of [facility], [place], and [place], [place]. What is Same Day Access? Same Day Access (SDA) is a walk-in clinic serving people with mental health needs. Each walk-in will be seen by a mental health clinician. Where can I access Same Day Access services? Five [facility] locations offer SDA services--please call ahead to ensure hours and availabilities havenot changed due to COVID-19. [facility] [address] [place] [address] Sunday - Sunday 8 a.m. - 5 p.m. [facility] [address] [facility], [address] [place] [address] Sunday - Sunday 8 a.m. - 5 p.m. [facility] [address] [place] [address] Sunday - 9 a.m. - 5 p.m. Sunday 9 a.m. - [address] [address] Wednesdays 9 a.m. - 3:30 p.m. [facility] [address] [place] [address] Wednesdays 9 a.m. - 3:30 p.m. Below are some additional resources: Crisis/Distress Hotlines [facility] 068-164-7154 Behavioral Health Response [phone] (in [facility] area) Kids Under Twenty One (KUTO) 164-270- 4136 (local) Safe Connections (Domestic Violence) 24-hour crisis line 817-229-2604 ALIVE (Alternatives to Living in Violent Environments) 354.953.3779 [facility] Helpline (LGBT youth) 593.989.1820 Youth Emergency Service Hotline 823-724-2848 National Suicide Prevention Lifeline 3-779-379-TALK (3704) Hospitals for Psychiatric Needs [facility] [address] [place] [address] [facility] (open 24 hrs) [address] [place] [address] [facility] [address] [facility] [address] [facility] [address] [place] [address] [facility] Behavioral Health [address] [place] [address] [facility] [address] [place] [address] [place] [address] [facility] [place] [address] [facility] [address] [place] [address] [facility] [address] [place] [address] [facility] [address] [facility] [address], [place] [address] Drug and Alcohol Abuse NCADA (National [place] on Alcoholism and Drug Abuse) 436.923.1177 ([facility]); [phone] ([facility]) [facility] [phone] [facility] [phone] [facility] [phone] ([facility]) [phone] ([facility]); [phone] ([facility]) [facility] (women only) [phone] [facility] [phone] General Information/Emergency Services [facility] (referrals to resources and services) or 374-674-ECFJ (5232) Police/Emergency Assistance [facility] Police non-emergency number [phone] [facility] Police non-emergency number [phone] Child Abuse/Neglect Line Call 911 if you feel you are at immediate risk of suicide, or if you identify an active suicide plan. Other resources available to you are: The National Suicide Prevention Lifeline at 8-096-622-TALK (1425) The Suicide Hotline at 0-502-ESVAUDW ( ) Discharge Medications: Current Medications TAKE these medications ARIPiprazole 10 mg tablet Take 1 tablet (10 mg total) by mouth daily for 15 days For: additional treatment for major depressive disorder Commonly known as: ABILIFY pbepmjpaesl-xdrgqmlepcoeq-glafjztbc 50-200-25 mg tablet Take 1 tablet by mouth daily For: HIV Commonly known as: BIKTARVY buPROPion XL 150 mg 24 hr tablet Take 1 tablet (150 mg total) by mouth daily Commonly known as: WELLBUTRIN XL busPIRone 10 mg tablet Take 1 tablet (10 mg total) by mouth 3 (three) times a day Commonly known as: BUSPAR doxepin 25 mg capsule Take 1 capsule (25 mg total) by mouth nightly for 15 days Commonly known as: SINEquan DULoxetine DR 60 mg capsule Take 1 capsule (60 mg total) by mouth daily for 15 days Commonly known as: CYMBALTA HYDROcodone-acetaminophen 5-325 mg per tablet Take 1 tablet by mouth every 6 (six) hours as needed for pain Commonly known as: NORCO hydrOXYzine 50 mg tablet Take 1 tablet (50 mg total) by mouth every 6 (six) hours as needed for anxiety for up to 15 days Commonly known as: ATARAX ibuprofen 600 mg tablet Take 1 tablet (600 mg total) by mouth every 6 (six) hours as needed Commonly known as: ADVIL,MOTRIN loperamide 2 mg capsule Take 1 capsule (2 mg total) by mouth as needed for diarrhea Commonly known as: IMODIUM sulfamethoxazole-trimethoprim 800-160 mg per tablet Take 1 tablet (160 mg of trimethoprim total) by mouth 3 (three) times a week For: Pneumocystis/Toxoplasmosis Prophylaxis Commonly known as: BACTRIM DS Start taking on: June 09, 2024 traZODone 50 mg tablet Take 1 tablet (50 mg total) by mouth nightly as needed Commonly known as: ENRIQUE Outpatient Follow-Up: Contact Information for Follow-ups Mady Sullivan MD Specialty: Infectious Diseases, Internal Medicine Relationship: PCP - General [address] [facility] [address] Next Steps: Follow up Cosigned by Rahel Miller MD at 06/08/2024 8:35 PM ORACLE HRMS CONSULTANT LE HRMS CONSULTANT LE HRMS CONSULTANT documented in this encounter Discharge Instructions * Discharge Instructions* Caitlyn Salinas MD - 06/04/2024 5:13 PM ORACLE HRMS CONSULTANT Dear Mr. Guevaradorothy Miranda Chase, You were admitted to [facility] from 06/02/2024 to 06/07/2024 for concern for drug overdose. You were seen by our psychiatrists who recommended that you undergo inpatient rehab for your drug use. However you declined at this time, we have provided resources for [facility] if you change your mind. During your admission you were found to have a fever. You received IV antibiotics and you underwent blood cultures and a lumbar puncture. The lumbar puncture was normal, and the IV antibiotics were able to be discontinued. We recommend restarting your anti-viral therapy for treatment of your HIV. Please present to medical attention (by calling your PCP, calling 911, or going to an emergency d epartment) if you experience fevers, confusion, or shortness of breath. Please START the following medication: Biktarvy 1 tablet by mouth daily Imodium 2 mg as needed for diarrhea Bactrim one tablet 3 times a week for infection prophylaxis Please STOP the following medication: None Please CONTINUE all other original home medications as they were prescribed. You have the following appointments scheduled: No future appointments. Your primary care provider is Mady Sullivan MD and can be reached at [phone] We wish you the very best, [facility] [phone] Here is the information for [facility]. You can re-establish with [facility] at their walk in clinic at the following address. Please bring ID when you present to the clinic: [facility] [address] [place] [address] [phone] HOURS Sunday - Sunday 8:30 a.m. - 3:30 p.m. [facility] Walk [facility] Clinic/Behavioral Health Rehabilitation Services: Please visit our [facility] at [address] [facility] during walk-in hours or schedule an appointment for an initial screening for short-term or long-term behavioral health rehabilitation services. [facility] walk-in hours are available Sunday through Sunday, 8:30-11 a.m. and 1-3 p.m. Appointments may be scheduled by calling [phone], Ext. [phone]. [facility] Behavioral Health - Same Day Access (SDA) [facility] Behavioral Health ([facility]) provides and coordinates an array of mental health services for citizens residing in [facility], [facility], and the [facility] of [facility], [place], and [place], [place]. What is Same Day Access? Same Day Access (SDA) is a walk-in clinic serving people with mental health needs. Each walk-in will be seen by a mental health clinician. Where can I access Same Day Access services? Five [facility] locations offer SDA services--please call ahead to ensure hours and availabilities havenot changed due to COVID-19. [facility] [address] [place] [address] Sunday - Sunday 8 a.m. - 5 p.m. [facility] [address] [facility], [address] [place] [address] Sunday - Sunday 8 a.m. - 5 p.m. [facility] [address] [place] [address] Sunday - 9 a.m. - 5 p.m. Sunday 9 a.m. - [address] [address] Wednesdays 9 a.m. - 3:30 p.m. [facility] [address] [place] [address] Wednesdays 9 a.m. - 3:30 p.m. Below are some additional resources: Crisis/Distress Hotlines [facility] Life Crisis Services [phone] Behavioral Health Response [phone] (in [facility] area) Kids Under Twenty One (KUTO) (local) Safe Connections (Domestic Violence) 24-hour crisis line 986-417-1002 ALIVE (Alternatives to Living in Violent Environments) 313.285.6636 [facility] Helpline (LGBT youth) 123.211.5273 Youth Emergency Service Hotline 082-594-5394 National Suicide Prevention Lifeline 0-371-383-QORY (5122) Hospitals for Psychiatric Needs [facility] [address] [place] [address] [facility] (open 24 hrs) [address] [place] [address] [facility] [address] [facility] [address] [facility] [address] [place] [address] [facility] Behavioral Health [address] [place] [address] [facility], [facility]. [address] [place] [address] [address] [place] [address] [facility] [address] [place], [place] [address] [facility] [address] [place] [address] [facility] [address] [facility] [address], [place] [address] Drug and Alcohol Abuse NCADA (National [place] on Alcoholism and Drug Abuse) [phone] ([facility]); [phone] ([facility]) [facility] [phone] [facility] Behavioral Health [phone] [facility] [phone] ([facility]) [phone] ([facility]); [phone] ([facility]) (women only) [phone] [facility] [phone] General Information/Emergency Services [facility] (referrals to resources and services) or [phone] ([phone]) Police/Emergency Assistance [facility] Police non-emergency number [phone] [facility] Police non-emergency number [phone] Child Abuse/Neglect Line Call 911 if you feel you are at immediate risk of suicide, or if you identify an active suicide plan. Other resources available to you are: The National Suicide Prevention Lifeline at 6-552-491-TALK (3398) The Suicide Hotline at 1-142-WVZUBHK ( ) LE HRMS CONSULTANT LE HRMS CONSULTANT LE HRMS CONSULTANT LE HRMS CONSULTANT documented in this encounter Medications at Time [...] (150 mg total) by mouth daily 04/19/2024 busPIRone (BUSPAR) 10 mg tablet Take 1 tablet (10 mg total) by mouth 3 (three) times a day 02/08/2024 4 HYDROcodone-aceta minophen (NORCO) 5-325 mg per tablet Take 1 [...] Refills Last Filled Start Date End Date loperamide (IMODIUM) 2 mg capsule Take 1 capsule (2 mg total) by mouth as needed for diarrhea 60 capsule 06/07/2024 bictegravir-emtri citabine-tenofovi r (BIKTARVY) 50-200-25 mg tablet Take 1 tablet by mouth daily 30 tablet 3 06/07/2024 5 sulfamethoxazole- trimethoprim (BACTRIM DS) 800-160 mg per tabletIndications :Pneumocystis/Tox oplasmosis Prophylaxis Take 1 tablet (160 mg of trimethoprim total) by mouth 3 (three) times a week 12 tablet 06/09/2024 4 documented in this encounter Discharge Disposition Disposition Code Departure Means Destination Comment s Discharge to home or self care documented in this encounter Progress Notes * Caitlyn Salinas MD - 06/07/2024 11:02 AM CST Daily Progress Note Medicine [facility]M Service Name: Phil Chase : 1995 Today's Date: June 07, 2024 Age: 28 y.o. male Admission: 06/02/2024 Bed: [id number] LOS: 5 days Subjective Chief complaint: 28 y.o. male with PMHx HIV (previously on HAART on Biktarvy, last dose reportedly 1 month ago), PTSD, amphetamine use who presents after overdose of benzodiazepines. Interval History Patient has been afebrile since 102.8 fever 14 AM Overnight, patient continued to refuse labs. He did receive IV antibiotics. Patient states his abdominal pain, neck stiffness, headache have all completely resolved this morning and he feels much better. Patient stated he wanted to leave prior to the HSV/VZV CSF studies came back since he has a bed at [facility] and has to leave before noon. Discussed risks and benefits of patient not receiving antiviral therapy since we do not have the test results back. AMA paperwork was signed and scanned intochart. However, as soon as the paperwork was signed, the HSV/VZV resulted as negative and dischargewas no longer AMA. Brief Plan: -Afebrile since 1114 AM. LP results unremarkable for any signs of infection with negative VZV. HSV, crypto and normal glucose and protein and cell counts. Discontinued the acyclovir, ceftriaxone, and vancomycin per ID. Given resolution of symptoms, patient is able to discharge today to [facility]. Patient able to resume Biktarvy given no signs of infection. Continue bactrim 160 mg x3 weekly for PJP prophylaxis. -Ophthalmology consulted; exam reassuring and without evidence of ocular syphilis. Recommended outpatient optho follow up for incidentally elevated enlarged CDR (poss glaucoma). -Psychiatry consulted; patient would likely not benefit from inpatient admission to psychiatry given chronic SI. Will hold off on re-starting any psychotropic medications at this time. Will set up outpatient follow up with [facility] or sober living facility or substance free rehab. However, patient denies interest in outpatient rehab at this time and would prefer inpatient psych hospitalization. [facility] resources provided in discharge paperwork. -Social work provided resources in regards to [place] and [facility] services, including emergency halfway and coordinated housing with [facility] and [facility]. -Continue imodium as this appears to improving the diarrhea. -CT Head with hypodensity in the right atnerior temporal lobe most likely streak artifact, recommend brain MRI for further evaluation. Recommend outpatient follow up. Objective Scheduled Meds PRN Meds Infusions acyclovir, 10 mg/kg, intravenous, Q8H KIMBERLEY punxcbbaxmc-renrvgikhtorg-uqermiqgv, 1 tablet, oral, Daily sodium chloride 0.9%, 0.5-20 mL, intra-catheter, Q8H KIMBERLEY (ALT) sulfamethoxazole-trimethoprim, 160 mg of trimethoprim, oral, Once per day on Sunday sodium chloride 0.9%, 30 mL, PRN loperamide, 2 mg, BID PRN ramelteon, 8 mg, Nightly PRN sodium chloride 0.9%, 0.5-20 mL, PRN Vitals Most Recent Vitals: T 36.2 ??C (97.2 ??F), HR 73, BP 119/63, RR 20, SpO2 99 %. 24hr Min/Max: Temp Min: 36.1 ??C (97 ??F) Max: 36.2 ??C (97.2 ??F) Pulse Min: 68 Max: 92 BP Min: 100/71 Max: 130/68 Resp Min: 19 Max: 20 SpO2 Min: 96 % Max: 99 % Intake/Output Summary (Last 24 hours) at 06/07/2024 1102 Last data filed at 06/06/2024 2104 Gross per 24 hour Intake 120 ml Output -- Net 120 ml Physical Exam Vitals reviewed. HENT: Head: Normocephalic and atraumatic. Eyes: Extraocular Movements: Extraocular movements intact. Cardiovascular: Rate and Rhythm: Normal rate and regular rhythm. Pulses: Normal pulses. Heart sounds: Normal heart sounds. Pulmonary: Effort: Pulmonary effort is normal. Breath sounds: Normal breath sounds. Abdominal: Palpations: Abdomen is soft. Skin: General: Skin is warm and dry. Neurological: General: No focal deficit present. Mental Status: He is alert and oriented to person, place, and time. Psychiatric: Comments: Patient endorses SI, denies HI Lines, Drains, Airways Peripheral IV 06/06/24 22 G Right Forearm (Active) Labs/Diagnostic Review Na - Cl - BUN - K - CO2 - Cr - Mg -, Glc: - AST - ALT - Alk Phos - Ca - TP - Alb - Total Bili: - Direct Bili: - \ Hgb - / WBC - -------- Plt - / MCV - \ INR - (Labs above are the most recent result obtained in the last ~24 hours. For additional labs/trends, see Epic.) Cardiac Labs (Trop-I, Pro-BNP) Lab Results Component Value Date TROPIHS <4 06/02/2024 TROPIHS <4 06/02/2024 I have reviewed the laboratory results. Imaging Review CT Head WO Contrast Result Date: 06/06/2024 1. No acute intracranial hemorrhage. 2. Brain [...] it. Electronically signed by: Maame Ruiz M.D. I have independently reviewed and interpreted CXR. Assessment/Plan Phil Chase is a 28 y.o. male with MHx HIV (previously on HAART on Biktarvy, last dose reportedly 1 month ago), PTSD, amphetamine use who presents after overdose of benzodiazepines. No new Assessment & Plan notes have been filed under this hospital service since the last note was generated. Service: [facility] #HIV #Fever #Neck Stiffness #Diarrhea Diagnosed in 2018, on biktarvy though inconsistent adherence. CD4 count on presentation 169, improved from 3 weeks and 1 month ago. Patient with several days of diarrhea, continuing in ED. Reports intermittent bright blood, though unsure whether this is hemorrhoidal or in stool. Has abdominal discomfort but no fevers/chills. Hgb stable, no leukocytosis. No recent travel, food/water/animal exposures. No recent abx. Had new sexual partner in last week. High suspicion for infectious causes, lower suspicion for medication-relatedgiven not taking biktarvy in last year. No personal or fam hx of IBD. Patient began endorsing neck stiffness, blurry vision with floaters on 06/04 PM. Patient with 102.8 fever on 06/05 AM. Patient originally given vanc and cefe 06/05 AM for 102 fever. Given new neck stiffness and concern for possible meningitis, patient transitioned to acyclovir and ceftriaxone. Hep B and C serologies negative. CMV IgG positive, IgM negative, titer 36. Crypto serum antigen negative. Stool culture negative for pathogens with shiga toxin negative. Plan: --Afebrile since 06/05 AM. LP results unremarkable for any signs of infection with negative VZV. HSV, crypto and normal glucose and protein and cell counts. Discontinued the acyclovir, ceftriaxone, and vancomycin per ID. Given resolution of symptoms, patient is able to discharge today to [facility]. Patient able to resume Biktarvy given no signs of infection. Continue bactrim 160 mg x3 weekly for PJP prophylaxis. -If patient agreeable to lab draws will check: AFB blood cultures, histo and blasto antibodies. -Have been unable to get stool sample, when available will check crypto and giardia stool -Unable to obtain RVP due to patient refusal. -CT Head 06/05/24: demonstrated hypodensity in the right atnerior temporal lobe most likely streak artifact, recommend brain MRI for further evaluation. Will recommend follow up MRI outpatient. -Ophthalmology consulted; exam reassuring and without evidence of ocular syphilis. Recommended outpatient optho follow up for incidentally elevated enlarged CDR (poss glaucoma). 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 Treated w/ 3 doses penicillin at that time. Serologies persistently low but elevated, per ID likely slow to return to negative iso HIV. Low concern for active infection. 1:512 at last admission. -Given recent blurry vision, optho consult as above. #Benzodiazepine Overdose Ingested 27 2mg tabs of xanax. Brought to ED slightly bradycardic, otherwise hemodynamically stable. Evaluated by tox in ED, no indication for flumazenil. UDS positive for amphetamines, cocaine, no benzos in UDS and no history of being prescribed these. Unclear how this was obtained or whether UDS without benzos is false negative. Mentating normally on arrival to floor -CTM -Tox following #Suicidal Ideation History of multiple psychiatric hospitalizations and presentations for SI, 25+ presentations to ED thus far this year. Home regimen abilify, doxepine, and duloxetine. Frequently evaluated by psych who assess patient as having chronic SI rarely meeting criteria for admission -Psychiatry consulted; patient would likely not benefit from inpatient admission to psychiatry given chronic SI, and that patient's SI is concerning for secondary gain. -Will hold off on re-starting any psychotropic medications at this time. -Will set up outpatient follow up with [facility] or sober living facility or substance free rehab. However, patient denies interest in outpatient rehab at this time. Will continue to re-evaluate. #NAGMA VBG on initial presentation 7./35, bradycardic to 40s. Bicarb improved in ED to 43, with persistent acidosis to 7.25. No anion gap. Several days diarrhea prior to ED presentation. Chloride and Knormal. Renal function wnl. Lactate 2.3 -> 2.8 in ED. Low suspicion for RTA given normal K and bicarb. Suspect diarrhea as cause of NAGMA, low suspicion for systemic infection given hemodynamic sta bility and patient feeling well. -TFTs wnl -Calcium wnl, low concern for parathyroid/MM -Normal renal function -UA w/o glucose, ketones. Urine pH wnl 6. -Stool culture unremarkable Code status : Full Code Diet : Adult Diet Regular; Suicidal; Send on Disposables, Deliver tray to nursing, Brushing Operator check PT/OT Dispo Rec : / Caitlyn Salinas MD Cosigned by Rahel Miller MD at 06/07/2024 12:52 PM ORACLE HRMS CONSULTANT LE HRMS CONSULTANT LE HRMS CONSULTANT Associated attestation - Rahel Miller MD - 06/07/2024 12:52 PM ORACLE HRMS CONSULTANT Attending Documentation I have seen and examined the patient on 06/07/24. I agree with the findings and plan of care as documented in the resident's/fellow's note. He reports feeling much better today and would like to discharge home. ID was notified and wanted him to remain on IV acyclovir until his HSV and VZV tests returned, which they did late this morning as negative. He has had no further fevers and the rest of his infectious work-up has been negative. ID is okay stopping all antibiotics, resuming his Biktarvy and discharging with outpatient follow-up. Supplementary Attestation Today, I am treating the patient for HIV which is in severe exacerbation, progression, or experiencing treatment side effects as evidenced by need for LP and IV antibiotics earlier in stay, as described in the note. Reviewed records from the following unique sources (external institutions or providers from different services): ID note. Independently interpreted CSF studies which shows no signs of infection, Enterovirus, HSV and VZV all negative. Rahel Miller MD * Caitlyn Salinas MD - 06/06/2024 7:35 AM CST Daily Progress Note Medicine FIRM Service Name: Phil Chase : 1995 Today's Date: June 06, 2024 Age: 28 y.o. male Admission: 06/02/2024 Bed: [id number] LOS: 4 days Subjective Chief complaint: 28 y.o. male with PMHx HIV (previously on HAART on Biktarvy, last dose reportedly 1 month ago), PTSD, amphetamine use who presents after overdose of benzodiazepines. Interval History Patient has been afebrile since 102.8 fever 14 AM Overnight patient refused labs and antibiotics, and removed his PIV requesting a PICC. Discussed with patient our concerns and that a PICC line is currently not an option. Patient was agreeable to having PIV replaced and receiving antibiotics. Plan for LP later today. He states that he continues to have a headache but that the simethicone helped with his abdominal pain. He states that he continues to have 4 episodes of bloody diarrhea; however, this was not able to be confirmed with nursing staff. Brief Plan: -Afebrile since 11/14 AM, however, awaiting LP results of LP. ID consulted: Continue acyclovir 10mg/kg, ceftriaxone 2 G Q12h, and vancomycin 1000 mg Q12H. Continue bactrim 160 mg x3 weekly for PJP prophylaxis. Will hold off on biktarvy until obtain infectious serologies. -If patient agreeable to lab draws will check: AFB blood cultures, histo and blasto antibodies. -Awaiting results of lumbar puncture including: protein, cell count, glucose, VZV, HSV, enterovirusPCR, cypto antigen and mycology culture. -Have been unable to get stool sample, when available will check crypto and giardia stool -Unable to obtain RVP due to patient refusal. -Ophthalmology consulted; exam reassuring and without evidence of ocular syphilis. Recommended outpatient optho follow up for incidentally elevated enlarged CDR (poss glaucoma). Consulted opthalmology for patients recent blurry vision and floaters that started 06/04. -Psychiatry consulted; patient would likely not benefit from inpatient admission to psychiatry given chronic SI. Will hold off on re-starting any psychotropic medications at this time. Will set up outpatient follow up with [facility] or sober living facility or substance free rehab. However, patient denies interest in outpatient rehab at this time and would prefer inpatient psych hospitalization. Willcontinue to re-evaluate. -Social work provided resources in regards to [facility] services, including emergency halfway. -Continue imodium as this appears to improving the diarrhea. -CT Head with hypodensity in the right atnerior temporal lobe most likely streak artifact, recommend brain MRI for further evaluation. Will touch base with ID in regards to lesion if concerning of HIV lymphoma. Objective Scheduled Meds PRN Meds Infusions acyclovir, 10 mg/kg, intravenous, Q8H KIMBERLEY al & mag hydroxide simethicone-lidocaine, 40 mL, oral, Once cefTRIAXone, 2,000 mg, intravenous, Q12H KIMBERLEY sodium chloride 0.9%, 0.5-20 mL, intra-catheter, Q8H KIMBERLEY (ALT) sulfamethoxazole-trimethoprim, 160 mg of trimethoprim, oral, Once per day on Sunday vancomycin, 1,000 mg, intravenous, Q12H sodium chloride 0.9%, 30 mL, PRN loperamide, 2 mg, BID PRN ramelteon, 8 mg, Nightly PRN sodium chloride 0.9%, 0.5-20 mL, PRN Vitals Most Recent Vitals: T 36.5 ??C (97.7 ??F), HR 79, BP 131/69, RR 18, SpO2 96 %. 24hr Min/Max: Temp Min: 36.5 ??C (97.7 ??F) Max: 36.9 ??C (98.4 ??F) Pulse Min: 79 Max: 94 BP Min: 107/45 Max: 134/65 Resp Min: 18 Max: 18 SpO2 Min: 96 % Max: 99 % Intake/Output Summary (Last 24 hours) at 06/06/2024 0735 Last data filed at 06/06/2024 0520 Gross per 24 hour Intake -- Output 575 ml Net -575 ml Physical Exam Vitals reviewed. HENT: Head: Normocephalic and atraumatic. Eyes: Extraocular Movements: Extraocular movements intact. Cardiovascular: Rate and Rhythm: Normal rate and regular rhythm. Pulses: Normal pulses. Heart sounds: Normal heart sounds. Pulmonary: Effort: Pulmonary effort is normal. Breath sounds: Normal breath sounds. Abdominal: Palpations: Abdomen is soft. Tenderness: There is abdominal tenderness. Comments: Generalized mild abdominal tenderness Skin: General: Skin is warm and dry. Neurological: General: No focal deficit present. Mental Status: He is alert and oriented to person, place, and time. Psychiatric: Comments: Patient endorses SI, denies HI Lines, Drains, Airways Labs/Diagnostic Review Na 136 Cl 104 BUN 11 K 3.7 CO2 25 Cr 1.10 Mg -, G AST 21 ALT 16 Alk Phos 73 Ca 8.8 TP - Alb 3.4 Total Bili: 0.2 Direct Bili: - \ Hgb 12.4 / WBC 6.6 -------- Plt 283 / MCV 79.8 \ INR - (Labs above are the most recent result obtained in the last ~24 hours. For additional labs/trends, see Epic.) Cardiac Labs (Trop-I, Pro-BNP) Lab Results Component Value Date TROPIHS <4 06/02/2024 TROPIHS <4 06/02/2024 I have reviewed the laboratory results. Imaging Review No results found. I have independently reviewed and interpreted CXR. Assessment/Plan Phil Chase is a 28 y.o. male with MHx HIV (previously on HAART on Biktarvy, last dose reportedly 1 month ago), PTSD, amphetamine use who presents after overdose of benzodiazepines. No new Assessment & Plan notes have been filed under this hospital service since the last note was generated. Service: Medicine Firm #HIV #Fever #Neck Stiffness #Diarrhea Diagnosed in 2018, on biktarvy though inconsistent adherence. CD4 count on presentation 169, improved from 3 weeks and 1 month ago. Patient with several days of diarrhea, continuing in ED. Reports intermittent bright blood, though unsure whether this is hemorrhoidal or in stool. Has abdominal discomfort but no fevers/chills. Hgb stable, no leukocytosis. No recent travel, food/water/animal exposures. No recent abx. Had new sexual partner in last week. High suspicion for infectious causes, lower suspicion for medication-relatedgiven not taking biktarvy in last year. No personal or fam hx of IBD. Patient began endorsing neck stiffness, blurry vision with floaters on 11 PM. Patient with 102.8 fever on 06/05 AM. Patient originally given vanc and cefe 06/05 AM for 102 fever. Given new neck stiffness and concern for possible meningitis, patient transitioned to acyclovir and ceftriaxone. Hep B and C serologies negative. CMV IgG positive, IgM negative, titer 36. Crypto serum antigen negative. Stool culture negative for pathogens with shiga toxin negative. Plan: -Afebrile since 06/05 AM, however, awaiting LP results of LP. ID consulted: Continue acyclovir 10mg/kg, ceftriaxone 2 G Q12h, and vancomycin 1000 mg Q12H. Continue bactrim 160 mg x3 weekly for PJP prophylaxis. Will hold off on biktarvy until obtain infectious serologies. -If patient agreeable to lab draws will check: AFB blood cultures, histo and blasto antibodies. -Awaiting results of lumbar puncture including: protein, cell count, glucose, VZV, HSV, enterovirusPCR, cypto antigen and mycology culture. -Have been unable to get stool sample, when available will check crypto and giardia stool -Unable to obtain RVP due to patient refusal. -CT Head 06/05/24: demonstrated hypodensity in the right atnerior temporal lobe most likely streak artifact, recommend brain MRI for further evaluation. Will touch base with ID in regards to lesion if concerning of HIV lymphoma. -Ophthalmology consulted; exam reassuring and without evidence of ocular syphilis. Recommended outpatient optho follow up for incidentally elevated enlarged CDR (poss glaucoma). -Diarrhea improving with Imodium PRN, continue to monitor. 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 Treated w/ 3 doses penicillin at that time. Serologies persistently low but elevated, per ID likely slow to return to negative iso HIV. Low concern for active infection. 1:512 at last admission. -Given recent blurry vision, optho consult as above. #Benzodiazepine Overdose Ingested 27 2mg tabs of xanax. Brought to ED slightly bradycardic, otherwise hemodynamically stable. Evaluated by tox in ED, no indication for flumazenil. UDS positive for amphetamines, cocaine, no benzos in UDS and no history of being prescribed these. Unclear how this was obtained or whether UDS without benzos is false negative. Mentating normally on arrival to floor -CTM -Tox following #Suicidal Ideation History of multiple psychiatric hospitalizations and presentations for SI, 25+ presentations to ED thus far this year. Home regimen abilify, doxepine, and duloxetine. Frequently evaluated by psych who assess patient as having chronic SI rarely meeting criteria for admission -Psychiatry consulted; patient would likely not benefit from inpatient admission to psychiatry given chronic SI, and that patient's SI is concerning for secondary gain. -Will hold off on re-starting any psychotropic medications at this time. -Will set up outpatient follow up with [facility] or sober living facility or substance free rehab. However, patient denies interest in outpatient rehab at this time. Will continue to re-evaluate. -1:1 sitter, suicide precautions #NAGMA VBG on initial presentation 7.22/61/35, bradycardic to 40s. Bicarb improved in ED to 43, with persistent acidosis to 7.25. No anion gap. Several days diarrhea prior to ED presentation. Chloride and Knormal. Renal function wnl. Lactate 2.3 -> 2.8 in ED. Low suspicion for RTA given normal K and bicarb. Suspect diarrhea as cause of NAGMA, low suspicion for systemic infection given hemodynamic sta bility and patient feeling well. -TFTs wnl -Calcium wnl, low concern for parathyroid/MM -Normal renal function -UA w/o glucose, ketones. Urine pH wnl 6. -Stool culture unremarkable Code status : Full Code Diet : Adult Diet Regular; Suicidal; Send on Disposables, Deliver tray to nursing, Brushing Operator check PT/OT Dispo Rec : / Caitlyn Salinas MD Cosigned by Rahel Miller MD at 06/07/2024 12:49 PM ORACLE HRMS CONSULTANT LE HRMS CONSULTANT LE HRMS CONSULTANT Associated attestation - Rahel Miller MD - 06/07/2024 12:49 PM ORACLE HRMS CONSULTANT Attending Documentation I have seen and examined the patient on 06/06/2024. I agree with the findings and plan of care as documented in the resident's/fellow's note. Plan for LP today and no further fevers. He took his IV access out last night and has not had any IV antibiotics since then. He is agreeable to repeat IV placement this AM and will continue empiric antibiotics pending LP and infectious work-up results. Supplementary Attestation Today, I am treating the patient for HIV, fevers which is in severe exacerbation, progression, or experiencing treatment side effects as evidenced by need for LP , as described in the note. Discussed management of HIV with ID. The patient is being intensively monitored for drug toxicity from Vanco by checking Vanc trough. Rahel Miller MD * Caitlyn Salinas MD - 06/05/2024 1:41 PM CST Daily Progress Note Medicine FIRM Service Name: Phil Chase : 1995 Today's Date: June 05, 2024 Age: 28 y.o. male Admission: 06/02/2024 Bed: [id number] LOS: 3 days Subjective Chief complaint: 28 y.o. male with PMHx HIV (previously on HAART on Biktarvy, last dose reportedly 1 month ago), PTSD, amphetamine use who presents after overdose of benzodiazepines. Interval History Patient had a fever to 102.8 11/14 AM, started on vanc/cefe. Patient currently afebrile, discontinued APAP to avoid hiding a fever. Patient notes that he has continued to have 4 bowel movements in past day with some bright red blood in stool. Noted improvement with imodium. Nursing notes that he has had one bowel movement in past24 hours. Patient states that he has had blurry vision that started yesterday, as well as neck stiffness. Patient notes continued abdominal pain. Patient voices passive SI, denies HI. Brief Plan: -Patient originally given vanc and cefe 06/05 AM for 102 fever. Given new neck stiffness and concern for possible meningitis, patient transitioned to acyclovir and ceftriaxone (low concern for listeria so not on ampicillin). -Consulted procedure team for lumbar puncture, will check protein, cell count, glucose, VZV, HSV, enterovirus PCR, cypto antigen and mycology culture. -ID consulted. Concerned for possible dysentery or meningitis (due to recent neck stiffness) given patient's immunocompromised status: will check crypto and giardia stool antigen assay. Hep B IgM, IgG, surface antibody, cryptococcal serum antigen, CMV PCR and IgG/IgM. In addition, gonorrhea and chlamydia throat and rectal swabs and Histoplasma antigen urine.Start bactrim 160 mg x3 weekly for prophylaxis. Will hold off on biktarvy until obtain infectious serologies. -Consulted opthalmology for patients recent blurry vision and floaters that started 06/04. -Psychiatry consulted; patient would likely not benefit from inpatient admission to psychiatry given chronic SI. Will hold off on re-starting any psychotropic medications at this time. Will set up outpatient follow up with [facility] or sober living facility or substance free rehab. However, patient denies interest in outpatient rehab at this time and would prefer inpatient psych hospitalization. Willcontinue to re-evaluate. -Social work provided resources in regards to [place] and [facility] services, including emergency halfway. -Continue imodium as this appears to improving the diarrhea. -Will check RVP Objective Scheduled Meds PRN Meds Infusions acyclovir, 10 mg/kg, intravenous, Q8H KIMBERLEY cefTRIAXone, 2,000 mg, intravenous, Q12H KIMBERLEY sodium chloride 0.9%, 0.5-20 mL, intra-catheter, Q8H KIMBERLEY (ALT) sulfamethoxazole-trimethoprim, 160 mg of trimethoprim, oral, Once per day on Sunday sodium chloride 0.9%, 30 mL, PRN loperamide, 2 mg, BID PRN ramelteon, 8 mg, Nightly PRN sodium chloride 0.9%, 0.5-20 mL, PRN Vitals Most Recent Vitals: T 36.9 ??C (98.4 ??F), HR 87, BP 107/45, RR 18, SpO2 99 %. 24hr Min/Max: Temp Min: 36.9 ??C (98.4 ??F) Max: 39.3 ??C (102.8 ??F) Pulse Min: 87 Max: 109 BP Min: 107/45 Max: 121/50 Resp Min: 18 Max: 20 SpO2 Min: 96 % Max: 99 % Intake/Output Summary (Last 24 hours) at 06/05/2024 1400 Last data filed at 06/05/2024 0515 Gross per 24 hour Intake -- Output 250 ml Net -250 ml Physical Exam Vitals reviewed. HENT: Head: Normocephalic and atraumatic. Eyes: Extraocular Movements: Extraocular movements intact. Cardiovascular: Rate and Rhythm: Normal rate and regular rhythm. Pulses: Normal pulses. Heart sounds: Normal heart sounds. Pulmonary: Effort: Pulmonary effort is normal. Breath sounds: Normal breath sounds. Abdominal: Palpations: Abdomen is soft. Tenderness: There is abdominal tenderness. Comments: Generalized mild abdominal tenderness Skin: General: Skin is warm and dry. Neurological: General: No focal deficit present. Mental Status: He is alert and oriented to person, place, and time. Psychiatric: Comments: Patient endorses SI, denies HI Lines, Drains, Airways Peripheral IV 06/02/24 20 G Anterior;Left Hand (Active) Labs/Diagnostic Review Na 136 Cl 104 BUN 11 K 3.7 CO2 25 Cr 1.10 Mg -, G AST 21 ALT 16 Alk Phos 73 Ca 8.8 TP - Alb 3.4 Total Bili: 0.2 Direct Bili: - \ Hgb 12.4 / WBC 6.6 -------- Plt 283 / MCV 79.8 \ INR - (Labs above are the most recent result obtained in the last ~24 hours. For additional labs/trends, see Epic.) Cardiac Labs (Trop-I, Pro-BNP) Lab Results Component Value Date TROPIHS <4 06/02/2024 TROPIHS <4 06/02/2024 I have reviewed the laboratory results. Imaging Review No results found. I have independently reviewed and interpreted CXR. Assessment/Plan Phil Chase is a 28 y.o. male with MHx HIV (previously on HAART on Biktarvy, last dose reportedly 1 month ago), PTSD, amphetamine use who presents after overdose of benzodiazepines. No new Assessment & Plan notes have been filed under this hospital service since the last note was generated. Service: Medicine Firm #HIV #Fever #Neck Stiffness #Diarrhea Diagnosed in 2018, on biktarvy though inconsistent adherence. CD4 count on presentation 169, improved from 3 weeks and 1 month ago. Patient with several days of diarrhea, continuing in ED. Reports intermittent bright blood, though unsure whether this is hemorrhoidal or in stool. Has abdominal discomfort but no fevers/chills. Hgb stable, no leukocytosis. No recent travel, food/water/animal exposures. No recent abx. Had new sexual partner in last week. High suspicion for infectious causes, lower suspicion for medication-relatedgiven not taking biktarvy in last year. No personal or fam hx of IBD. Patient began endorsing neck stiffness, blurry vision with floaters on 11/13 PM. Patient with 102.8 fever on 1114 AM. Hep B and C serologies negative. Plan: -Patient originally given vanc and cefe 11/14 AM for 102 fever. Given new neck stiffness and concern for possible meningitis, patient transitioned to acyclovir and ceftriaxone (low concern for listeria so not on ampicillin). -Consulted procedure team for lumbar puncture, will check protein, cell count, glucose, VZV, HSV, enterovirus PCR, cypto antigen and mycology culture. -ID consulted. Concerned for possible dysentery or meningitis (due to recent neck stiffness) given patient's immunocompromised status: will check crypto and giardia stool antigen assay, cryptococcal serum antigen, CMV PCR and IgG/IgM. In addition, gonorrhea and chlamydia throat and rectal swabs andHistoplasma antigen urine.Start bactrim 160 mg x3 weekly for prophylaxis. Will hold off on biktarvyuntil obtain infectious serologies. -Consulted opthalmology for patients recent blurry vision and floaters that started 06/04. -Stool culture no growth to date, O&P pending. -Diarrhea improving with Imodium PRN, continue to monitor. -Will check RVP. 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 Treated w/ 3 doses penicillin at that time. Serologies persistently low but elevated, per ID likely slow to return to negative iso HIV. Low concern for active infection. 1:512 at last admission. -Given recent blurry vision, optho consult as above. #Benzodiazepine Overdose Ingested 27 2mg tabs of xanax. Brought to ED slightly bradycardic, otherwise hemodynamically stable. Evaluated by tox in ED, no indication for flumazenil. UDS positive for amphetamines, cocaine, no benzos in UDS and no history of being prescribed these. Unclear how this was obtained or whether UDS without benzos is false negative. Mentating normally on arrival to floor -CTM -Tox following #Suicidal Ideation History of multiple psychiatric hospitalizations and presentations for SI, 25+ presentations to ED thus far this year. Home regimen abilify, doxepine, and duloxetine. Frequently evaluated by psych who assess patient as having chronic SI rarely meeting criteria for admission -Psychiatry consulted; patient would likely not benefit from inpatient admission to psychiatry given chronic SI, and that patient's SI is concerning for secondary gain. -Will hold off on re-starting any psychotropic medications at this time. -Will set up outpatient follow up with [facility] or sober living facility or substance free rehab. However, patient denies interest in outpatient rehab at this time. Will continue to re-evaluate. -1:1 sitter, suicide precautions #NAGMA VBG on initial presentation 7./35, bradycardic to 40s. Bicarb improved in ED to 43, with persistent acidosis to 7.25. No anion gap. Several days diarrhea prior to ED presentation. Chloride and Knormal. Renal function wnl. Lactate 2.3 -> 2.8 in ED. Low suspicion for RTA given normal K and bicarb. Suspect diarrhea as cause of NAGMA, low suspicion for systemic infection given hemodynamic sta bility and patient feeling well. -TFTs wnl -Calcium wnl, low concern for parathyroid/MM -Normal renal function -UA w/o glucose, ketones. Urine pH wnl 6. -Stool culture unremarkable Code status : Full Code Diet : Adult Diet Regular; Suicidal; Send on Disposables, Deliver tray to nursing, Brushing Operator check PT/OT Dispo Rec : / Caitlyn Salinas MD Cosigned by Rahel Miller MD at 06/05/2024 3:23 PM ORACLE HRMS CONSULTANT LE HRMS CONSULTANT LE HRMS CONSULTANT Associated attestation - Rahel Miller MD - 06/05/2024 3:23 PM ORACLE HRMS CONSULTANT Attending Documentation I have seen and examined the patient on 06/05/24. I agree with the findings and plan of care as documented in the resident's/fellow's note. Spiked a fever this AM to 39.3 and he now endorses headaches, vision changes and some neck stiffness that is concerning for possible meningitis picture. Given his low CD4 count he is at risk for opportunistic infections and extensive infectious work-up has now been ordered. Procedure team consultedfor LP. No further observed diarrhea per RN and Hgb has been stable. Will continue CTX/Vanc/Acyclovir for now. Supplementary Attestation Today, I am treating the patient for HIV & fevers which is in severe exacerbation, progression,or experiencing treatment side effects as evidenced by need for IV antibiotics and LP, as describedin the note. Reviewed records from the following unique sources (external institutions or providers from different services): ID note. The patient is being intensively monitored for drug toxicity from Vancomycin by checking vanc trough. Rahel Miller MD * Tj Patel, [facility] - 06/04/2024 1:20 PM CST Images from the original note were not included. Pharmacist Admission Medication Reconciliation The clinical pharmacy technician infusion has completed a medication review with the patient/caregiver and has made the following edits to the home medication list: Medication additions None Medication deletions Gabapentin - states not taking Medication alterations None Medication-related issues to be addressed: Has not been taking Biktarvy and bactrim. Home medications - following pharmacist reconciliation Medication List CONTINUE taking these medications Dose Instructions Morning Afternoon Evening Bedtime As Needed ARIPiprazole 10 mg tablet Commonly known as: ABILIFY 10 mg Take 1 tablet (10 mg total) by mouth daily for 15 days 1 tablet Biktarvy 50-200-25 mg tablet Generic drug: bnvczzaoxei-ezrgpjempjbgj-swefdbalu 1 tablet Take 1 tablet by mouth daily 1 tablet buPROPion XL 150 mg 24 hr tablet Commonly known as: WELLBUTRIN XL 150 mg Take 1 tablet (150 mg total) by mouth daily 1 tablet doxepin 25 mg capsule Commonly known as: SINEquan 25 mg Take 1 capsule (25 mg total) by mouth nightly for 15 days [address] 60 mg capsule Commonly known as: CYMBALTA 60 mg Take 1 capsule (60 mg total) by mouth daily for 15 days 1 capsule HYDROcodone-acetaminophen 5-325 mg per tablet Commonly known as: NORCO 1 tablet Take 1 tablet by mouth every 6 (six) hours as needed for pain 1 tablet hydrOXYzine 50 mg tablet Commonly known as: ATARAX 50 mg Take 1 tablet (50 mg total) by mouth every 6 (six) hours as needed for anxiety for up to 15 days 1 tablet ibuprofen 600 mg tablet Commonly known as: ADVIL,MOTRIN 600 mg Take 1 tablet (600 mg total) by mouth every 6 (six) hours as needed 1 tablet sulfamethoxazole-trimethoprim 800-160 mg per tablet Commonly known as: BACTRIM DS 160 mg of trimethoprim Take 1 tablet (160 mg of trimethoprim total) by mouth daily 1 tablet traZODone 50 mg tablet Commonly known as: DESYREL 50 mg Take 1 tablet (50 mg total) by mouth nightly as needed 1 tablet ASK your doctor about these medications Dose Instructions Morning Afternoon Evening Bedtime As Needed busPIRone 10 mg tablet Commonly known as: BUSPAR Ask about: Which instructions should I use? 10 mg Take 1 tablet (10 mg total) by mouth 3 (three) times a day Allergies - following pharmacist reconciliation Patient has no known allergies. Tj Patel, PharmD, [facility] Clinical Health And Safety Tech - Transitions of Care [phone] LE HRMS CONSULTANT * Caitlyn Salinas MD - 06/04/2024 8:05 AM CST Daily Progress Note Medicine FIRM Service Name: Phil Chase : 1995 Today's Date: June 04, 2024 Age: 28 y.o. male Admission: 06/02/2024 Bed: [id number] LOS: 2 days Subjective Chief complaint: 28 y.o. male with PMHx HIV (previously on HAART on Biktarvy, last dose reportedly 1 month ago), PTSD, amphetamine use who presents after overdose of benzodiazepines. Interval History No acute events overnight, VSS Patient notes that he has had more than 8 bowel movements in past day with some bright red blood instool. Noted improvement with imodium. Nursing documentation shows only 3 document BMs in past day. States he has been able to eat breakfast, but still has abdominal discomfort. Denies vomiting today. Patient voices passive SI, denies HI. Brief Plan: -Psychiatry consulted; patient would likely not benefit from inpatient admission to psychiatry given chronic SI, and that patient's SI is concerning for secondary gain. Will hold off on re-starting any psychotropic medications at this time. Will set up outpatient follow up with [facility] or sober living facility or substance free rehab. However, patient denies interest in outpatient rehab at this time and would prefer inpatient psych hospitalization. Will continue to re-evaluate. -ID consulted. Concerned for possible dysentery given patient's immunocompromised status: will check crypto and giardia stool antigen assay. Hep B IgM, IgG, surface antibody, cryptococcal serum antigen, CMV PCR and IgG/IgM. In addition, gonorrhea and chlamydia throat and rectal swabs and Histoplasma antigen urine. Recommended consult to opthomalogy for patients history of floaters for concern of ocular syphilis. Recommended lumbar puncture for potential CITY TAX AUDITOR involvement since patient endorsed neck stiffness. Start bactrim 160 mg x3 weekly for prophylaxis. Will hold off on biktarvy until obtain infectious serologies. -Social work provided resources in regards to [place] and [facility] services, including emergency halfway. -Continue imodium as this appears to improving the diarrhea. Objective Scheduled Meds PRN Meds Infusions sodium chloride 0.9%, 0.5-20 mL, intra-catheter, Q8H KIMBERLEY (ALT) acetaminophen, 650 mg, Q4H PRN sodium chloride 0.9%, 30 mL, PRN ramelteon, 8 mg, Nightly PRN sodium chloride 0.9%, 0.5-20 mL, PRN Vitals Most Recent Vitals: T 36.7 ??C (98.1 ??F), HR 68, BP 129/49, RR 16, SpO2 97 %. 24hr Min/Max: Temp Min: 36.7 ??C (98.1 ??F) Max: 36.8 ??C (98.2 ??F) Pulse Min: 51 Max: 75 BP Min: 114/80 Max: 133/86 Resp Min: 12 Max: 21 SpO2 Min: 97 % Max: 100 % No intake or output data in the 24 hours ending 06/04/24 0805 Physical Exam Vitals reviewed. HENT: Head: Normocephalic and atraumatic. Eyes: Extraocular Movements: Extraocular movements intact. Cardiovascular: Rate and Rhythm: Normal rate and regular rhythm. Pulses: Normal pulses. Heart sounds: Normal heart sounds. Pulmonary: Effort: Pulmonary effort is normal. Breath sounds: Normal breath sounds. Abdominal: Palpations: Abdomen is soft. Tenderness: There is abdominal tenderness. Comments: Generalized mild abdominal tenderness Skin: General: Skin is warm and dry. Neurological: General: No focal deficit present. Mental Status: He is alert and oriented to person, place, and time. Psychiatric: Comments: Patient endorses SI, denies HI Lines, Drains, Airways Peripheral IV 06/02/24 20 G Anterior;Left Hand (Active) Labs/Diagnostic Review Na 138 Cl 105 BUN 8 K 3.7 CO2 24 Cr 0.97 Mg -, G AST 17 ALT 19 Alk Phos 73 Ca 8.7 TP - Alb 3.5 Total Bili: 0.2 Direct Bili: <0.2 \ Hgb 12.9 / WBC 4.6 -------- Plt 292 / MCV 79.5 \ INR 1.04 (Labs above are the most recent result obtained in the last ~24 hours. For additional labs/trends, see Epic.) Cardiac Labs (Trop-I, Pro-BNP) Lab Results Component Value Date TROPIHS <4 06/02/2024 TROPIHS <4 06/02/2024 I have reviewed the laboratory results. Imaging Review XR Chest 1 Vw Portable Result Date: 06/02/2024 Comparison is made to prior study of 04/28/2024. In the interval, no change. The lungs are clear. Specifically, no pulmonary edema or pneumonia. No pleural effusion or pneumothorax. Heart size and mediastinal contour are normal. Electronically signed by: Tanner Lees M.D. I have independently reviewed and interpreted CXR. Assessment/Plan Phil Chase is a 28 y.o. male with MHx HIV (previously on HAART on Biktarvy, last dose reportedly 1 month ago), PTSD, amphetamine use who presents after overdose of benzodiazepines. No new Assessment & Plan notes have been filed under this hospital service since the last note was generated. Service: Medicine Firm #Benzodiazepine Overdose Ingested 27 2mg tabs of xanax. Brought to ED slightly bradycardic, otherwise hemodynamically stable. Evaluated by tox in ED, no indication for flumazenil. UDS positive for amphetamines, cocaine, no benzos in UDS and no history of being prescribed these. Unclear how this was obtained or whether UDS without benzos is false negative. Mentating normally on arrival to floor -CTM -Tox following #Suicidal Ideation History of multiple psychiatric hospitalizations and presentations for SI, 25+ presentations to ED thus far this year. Home regimen abilify, doxepine, and duloxetine. Frequently evaluated by psych who assess patient as having chronic SI rarely meeting criteria for admission -Psychiatry consulted; patient would likely not benefit from inpatient admission to psychiatry given chronic SI, and that patient's SI is concerning for secondary gain. -Will hold off on re-starting any psychotropic medications at this time. -Will set up outpatient follow up with [facility] or sober living facility or substance free rehab. However, patient denies interest in outpatient rehab at this time. Will continue to re-evaluate. -1:1 sitter, suicide precautions #HIV Diagnosed in 2018, on biktarvy though inconsistent adherence. CD4 count on presentation 169, improved from 3 weeks and 1 month ago. -ID consulted. Appreciate recommendations. Likely plan to continue biktarvy and bactrim for PJP prophylaxis #Diarrhea Patient with several days of diarrhea, continuing in ED. Reports intermittent bright blood, though unsure whether this is hemorrhoidal or in stool. Has abdominal discomfort but no fevers/chills. Hgb stable, no leukocytosis. No recent travel, food/water/animal exposures. No recent abx. Had new sexual partner in last week. High suspicion for infectious causes, lower suspicion for medication-relatedgiven not taking biktarvy in last year. No personal or fam hx of IBD. Plan: -ID consulted. Concerned for possible dysentery given patient's immunocompromised status: will check crypto and giardia stool antigen assay. Hep B IgM, IgG, surface antibody, cryptococcal serum antigen, CMV PCR and IgG/IgM. In addition, gonorrhea and chlamydia throat and rectal swabs and Histoplasma antigen urine. Recommended consult to opthomalogy for patients history of floaters for concern of ocular syphilis. Recommended lumbar puncture for potential [employer] TAX AUDITOR involvement since patient endorsed neck stiffness. Start bactrim 160 mg x3 weekly for prophylaxis. Will hold off on biktarvy until obtain infectious serologies. -Stool culture no growth to date, O&P pending. -Diarrhea improving with Imodium PRN, continue to monitor. #NAGMA VBG on initial presentation 7.//35, bradycardic to 40s. Bicarb improved in ED to 43, with persistent acidosis to 7.25. No anion gap. Several days diarrhea prior to ED presentation. Chloride and Knormal. Renal function wnl. Lactate 2.3 -> 2.8 in ED. Low suspicion for RTA given normal K and bicarb. Suspect diarrhea as cause of NAGMA, low suspicion for systemic infection given hemodynamic sta bility and patient feeling well. -TFTs wnl -Calcium wnl, low concern for parathyroid/MM -Normal renal function -UA w/o glucose, ketones. Urine pH wnl 6. 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 Treated w/ 3 doses penicillin at that time. Serologies persistently low but elevated, per ID likely slow to return to negative iso HIV. Low concern for active infection. 1:512 at last admission. Code status : Full Code Diet : Adult Diet Regular; Suicidal; Send on Disposables, Deliver tray to nursing, Brushing Operator check PT/OT Dispo Rec : / Caitlyn Salinas MD Cosigned by Rahel Miller MD at 06/04/2024 4:43 PM ORACLE HRMS CONSULTANT LE HRMS CONSULTANT LE HRMS CONSULTANT LE HRMS CONSULTANT LE HRMS CONSULTANT * Shilpa Sullivan NP - 06/03/2024 3:32 PM CST SAFE-T Protocol with C-SSRS ([place] Risk and Protective Factors) - Recent Step 1: Identify Risk Factors: [place] Suicide Severity Rating Scale (Recent Screener) Initial [...] Yes Suicide Risk Level: High Activating Events: homelessness Treatment History: history of mental illness, prior psychiatric hospitalizations, and medication/treatment noncompliance Clinical Status:hopelessness, highly impulsive behavior, and substance use disorder Access to lethal methods (specifically about the presence or absence of a firearm in the home or ease of accessing): No Step 2: Identify Protective Factors (Protective factors may not counteract significant acute suicide risk factors): Internal: no current suicidal ideation External: no access to firearms Step 3: Specific Questioning about Thoughts, Plans, and Suicidal Intent (see Step 1 for Ideation Severity and Behavior): C-SSRS Suicidal Ideation Intensity (with respect to the most severe ideation 1-5 identified above) Month Frequency In the past month, how many times have you had these thoughts? (3) 2-5 times in week Duration When you have the thoughts how long do they last? (3) 1-4 hours/a lot of the time Controllability Could/can you stop thinking about killing yourself or wanting to if you want to? (0) Does not attempt to control thoughts Deterrents Are there things - anyone or anything (e.g., family, mandaen, pain of ) - that stopped you from wanting to or acting on thoughts of suicide? (3) Uncertain that deterrents stopped you Reasons for Ideation What sort of reasons did you have for thinking about wanting to or killing yourself? Was it to end the pain or stop the way you were feeling (in other words you couldn???t go on livingwith this pain or how you were feeling) or was it to get attention, revenge or a reaction from others? Or both? (2) Mostly to get attention, revenge or a reaction from others Total Suicidal Ideation Intensity Score* (add values of selected answers above) *Score can range from 2- 25: -Low: 2-5 -Moderate: 6-10 -Moderately Severe: 11-15 -Severe: 16-20 -Very Severe: 21-25 11 Step 4: Guidelines to Determine Level of [...] for risk level decision and actions taken: safe environment, hospital attire LE HRMS CONSULTANT * Tabitha Stout MD - 06/03/2024 10:44 AM CST Medical Toxicology Progress Note This was an in-person encounter. Subjective Patient ID: Phil Chase, 30 y.o. male 28 yo F, PMH HIV, Borderline personality disorder, PTSD, syphilis, methamphetamine use who presentswith reported alprazolam ingestion. Subjective: - Today, more awake and alert -- reports had been having N/V, diarrhea for 3-4 days prior to arrival in the ED - Still mildly somnolent but awakens to answer questions, able to sit up but not getting up to use the bathroom due to generalized weakness Objective Vitals: 24hr Min/Max: Pulse Min: 46 Max: 78 BP Min: 108/72 Max: 149/106 Resp Min: 10 Max: 21 SpO2 Min: 96 % Max: 100 % Most Recent: Vitals: 06/03/24 1000 BP: 131/85 Pulse: 75 Resp: 21 Temp: SpO2: 99% No intake/output data recorded. Physical Exam Constitutional: General: He is not in acute distress. Comments: Mildly somnolent HENT: Head: Normocephalic and atraumatic. Nose: No congestion or rhinorrhea. Mouth/Throat: Mouth: Mucous membranes are moist. Eyes: Extraocular Movements: Extraocular movements intact. Pupils: Pupils are equal, round, and reactive to light. Cardiovascular: Rate and Rhythm: Normal rate and regular rhythm. Pulmonary: Effort: Pulmonary effort is normal. Breath sounds: Normal breath sounds. Abdominal: General: There is no distension. Palpations: Abdomen is soft. Comments: Minimal diffuse tenderness to palpation without rebound or guarding Musculoskeletal: General: No swelling. Cervical back: Neck supple. Skin: General: Skin is warm and dry. Neurological: Mental Status: He is oriented to person, place, and time. Comments: Somewhat somnolent but awakens easily to voice, answers questions appropriately Moving all extremities spontaneously Mildly increased tone BLE Normal reflexes No clonus No ataxia Results: Laboratory review: Lab results in the last 24 hours: Recent Results (from the past 24 hours) Blood gas, venous Collection Time: 06/02/24 12:29 PM Result Value Ref Range pH, Venous 7.25 (L) 7.32 - 7.43 PCO2, Venous 58 (H) 40 - 50 mmHg PO2, Venous 31 mmHg HCO3 Venous, Calculated 26 20 - 30 mmol/L BE, venous -3 mmol/L Lactate Collection Time: 06/02/24 12:29 PM Result Value Ref Range Lactate 2.6 (H) 0.7 - 2.0 mmol/L POCT glucose Collection Time: 06/02/24 1:13 PM Result Value Ref Range Glucose, POC 45 (Critical) 70 - 199 mg/dL Glucose comment 1 Glu2: POCT glucose Collection Time: 06/02/24 1:50 PM Result Value Ref Range Glucose, POC 56 (L) 70 - 199 mg/dL POCT glucose Collection Time: 06/02/24 2:26 PM Result Value Ref Range Glucose, POC 73 70 - 199 mg/dL POCT glucose Collection Time: 06/02/24 3:25 PM Result Value Ref Range Glucose, POC 106 70 - 199 mg/dL Blood gas, venous Collection Time: 06/02/24 3:44 PM Result Value Ref Range pH, Venous 7.25 (L) 7.32 - 7.43 PCO2, Venous 43 40 - 50 mmHg PO2, Venous 33 mmHg HCO3 Venous, Calculated 20 20 - 30 mmol/L BE, venous -8 mmol/L Basic metabolic panel Collection Time: 06/02/24 5:22 PM Result Value Ref Range Sodium 138 135 - 145 mmol/L Potassium, pl See Comment 3.3 - 4.9 mmol/L Chloride 107 97 - 110 mmol/L CO2 24 22 - 32 mmol/L Anion gap 7 2 - 15 mmol/L BUN 11 6 - 25 mg/dL Creatinine 0.76 (L) 0.80 - 1.30 mg/dL Glucose 69 (L) 70 - 199 mg/dL Calcium 8.8 8.5 - 10.3 mg/dL Lactate Collection Time: 06/02/24 5:22 PM Result Value Ref Range Lactate 2.8 (H) 0.7 - 2.0 mmol/L Osmolality, blood Collection Time: 06/02/24 5:22 PM Result Value Ref Range Osmo 285 275 - 300 mOsm/kg eGFR Collection Time: 06/02/24 5:22 PM Result Value Ref Range eGFR >90 >=60 mL/min/1.73 m2 Lipid panel Collection Time: 06/02/24 5:22 PM Result Value Ref Range Cholesterol 110 30 - 199 mg/dL Triglycerides 51 <=149 mg/dL HDL 33 (L) >=40 mg/dL LDL, calculated 65 <=129 mg/dL Non-HDL Cholesterol 77 mg/dL Chol/HDL ratio 3 Stool culture Stool Rectum Collection Time: 06/02/24 7:17 PM Specimen: Rectum; Stool Result Value Ref Range Report Preliminary Report: Culture results pending. POCT ketone, blood Collection Time: 06/02/24 7:46 PM Result Value Ref Range Ketones, Blood, POC 0.1 0.0 - 0.5 mmol/L POCT glucose Collection Time: 06/03/24 5:26 AM Result Value Ref Range Glucose, POC 77 70 - 199 mg/dL Assessment 28 yo F, PMH HIV, Borderline personality disorder, PTSD, syphilis, methamphetamine use who presentswith reported alprazolam ingestion. Took 27 x 2mg alprazolam yesterday morning. Now more awake/alert, breathing comfortably. Plan Alprazolam Ingestion -- Additional labs obtained yesterday with ketones, Osm reassuring (Osm gap 1; not concerned for toxic EtOH ingestion at this time), normal ketones -- Suspect patient's persistent metabolic acidosis with elevated lactate is due to medical illness given recent hx N/V/D that preceded his ingestion by several days, particularly in context of immunocompromised state. Respiratory component of acidosis resolved on repeat VBG. Seems that patient would likely benefit from a medical admission for further management, but we would defer to primary team. -- Given patient now more awake/alert with improved respiratory status and >24 h from time of ingestion, suspect minimal contribution of initial overdose to patient's symptoms currently. We would consider patient medically cleared from a toxicologic perspective at this time. We will sign off at this time. Please page us with any questions, Tabitha Stout MD Cosigned by Sheron Montano MD at 06/03/2024 4:48 PM ORACLE HRMS CONSULTANT LE HRMS CONSULTANT LE HRMS CONSULTANT Associated attestation - Sheron Montano MD - 06/03/2024 4:48 PM ORACLE HRMS CONSULTANT TOXICOLOGY ATTENDING ATTESTATION I have evaluated and examined the patient in-person on 06/03/24. I agree with the findings and plan of care as documented in the (resident/fellow)'s note with modifications as documented in my note Patient improved today from a benzodiazepine overdose standpoint. While his UDS is negative, his symptoms of somnolence and general weakness would be consistent with this reported overdose. Sometimes, alprazolam does not trigger a positive on the benzodiazepine screen. The patient had a reported alprazolam overdose on 04/28/2024 which also resulted in a negative UDS for benzodiazepines. The patient's labs yesterday were relatively unchanged/worsening, but seem unrelated to the reported ingestion. His respiratory acidosis resolved, however his pH still remained 7.25. In the setting of vomiting/diarrhea x 3-4 days ANIME ARTIST, it appears the patient could have some underlying metabolic or infectious process also contributing. His lactate was uptrending yesterday. With no repeat labs todayto compare, unclear if improving. The patient has also had hypoglycemia, but takes no antihyperglycemic agents. As such, from a toxicologic standpoint, he appears to be improving but may require ongoing medical workup, but will defer to primary team. He is unlikely to further decompensate from his initial reported alprazolam ingestion. At this time, the patient has no other obvious toxidrome or required toxicologic interventions. No further toxicologic recommendations, toxicology will sign off. Dispo and medical workup per primary team. Sheron Montano MD [employer] [facility] Division of Medical Toxicology Please page us with any questions, documented in this encounter H&P Notes * Geo Chaudhry MD - 06/03/2024 4:15 PM CST History and Physical Department of Internal Medicine Name: Phil Chase Today: June 03, 2024 : 1995 Age: 28 y.o. male SUBJECTIVE HPI: Phil Chase is a 28 y.o. male with PMHx HIV (previously on HAART on Biktarvy, last dose reportedly 1 month ago), PTSD, amphetamine use who presents after overdose of benzodiazepines. Patient has extensive history of suicidal ideation with frequent (near weekly) presentations to EDs. Personal stressors include unstable housing and being bazzi with unsupportive family - reports he came out this week and was told he is going to hell . Per note from 05/10/24 ED visit patient had 20 visits for SI in the previous 3 months. Has been evaluated multiple times in past by psych and foundto have chronic low-level SI without benefit from hospitalization. Patient reports he had fight with mother and was tired of it , and reports he took prescribed 27 2mg tablets of alprazolam. UDS negative for benzodiazepines, and per psych note no prescription history of benzos and mother reports she had not heard from him in month. On arrival to ED bradycardic to 40s but normotensive, satting well on RA, non-tachycardic, afebrile. Somnolent though rousable and noted to have hyperreflexia. Lab workup demonstrates CMP w/ hypoglycemia to 57, total protein 9.2, w/ borderline elevated protein gap, blood gas 7.22/61/35, CK 361, lactate 2.3, CBC unremarkable. Tox consulted in ED who deferredflumazenil given stability and improvement in VBG, and reported history of seizures. Psych consulted in ED, though note not completed at this time. Patient mentation improved in ED but continued to have acidosis - given this and diarrhea was admitted to medicine. Patient reports several days of diarrhea over past several days, with poor PO and intermittent trace BRB in stools. Has never had this before. Denies fevers, chills, rashes. No overt provoking events, no recent travel, no foods. Does report new sexual partner in last week. Patient has hx of HIV on biktarvy. Was diagnosed 2017 with a CD4 count of 64. Has followed with at [facility], with successful HIV suppression in 2022 and improvement in CD4 to 202. Has had multiple hospitalizations during which he reported inconsistent biktarvy use. Reports he last took ~1 month ago. CD4 count in ED 169. Review of chart from multiple recent hospitalizations demonstrates ID notes suggesting that syphilis was previously treated and will likely require significant time for titers to return to baseline iso concurrent HIV (was as high as 1:1028 03/15). Past Medical History: Diagnosis Date Anal warts Borderline personality disorder ([facility]) ([facility]) Depression prior suicide attempts (10/2023, 02/2024) Depression with suicidal ideation HIV (human immunodeficiency virus infection) ([facility]) HIV (human immunodeficiency virus infection) ([facility]) Dx 2018 Methamphetamine use disorder, moderate, in early remission ([facility]) Neuropathy ([facility]) PTSD (post-traumatic stress disorder) Syphilis (acquired) Rx'd with 3 IM doses of Penicillni per patient Past Surgical History: Procedure Laterality Date LUMBAR PUNCTURE WO INJECTION, DIAGNOSTIC N/A 10/12/2023 No Known Allergies Social History Tobacco Use Smoking status: Former Types: Cigarettes Passive exposure: Current Smokeless tobacco: Never Substance and Sexual Activity Drug use: Yes Frequency: 3.0 times per week Types: Methamphetamines Comment: relapsed - meth used 3 days ago Sexual activity: Defer Partners: Male Alcohol Use: Patient Unable To Answer (05/03/2024) Received from [facility] Health AUDIT-C Frequency of Alcohol Consumption: Patient unable to answer Average Number of Drinks: Patient unable to answer Frequency of Binge Drinking: Patient unable to answer Family History Problem Relation Age of Onset Suicide Completion Father Other (overdose) Father Hypertension Maternal Grandmother Diabetes type II Maternal Grandmother MEDICATIONS Scheduled: sodium chloride 0.9%, 0.5-20 mL, intra-catheter, Q8H KIMBERLEY (ALT) Infusions: PRN: acetaminophen sodium chloride 0.9% ramelteon sodium chloride 0.9% REVIEW OF SYSTEMS: Per HPI OBJECTIVE VITALS: 24hr Min/Max: Temp Min: 36.8 ??C (98.2 ??F) Max: 36.8 ??C (98.2 ??F) Pulse Min: 51 Max: 77 BP Min: 114/80 Max: 142/82 Resp Min: 11 Max: 21 SpO2 Min: 98 % Max: 100 % Most Recent Vitals: Vitals: 06/03/24 1749 BP: 125/56 Pulse: 73 Resp: 12 Temp: 36.8 ??C (98.2 ??F) SpO2: 99% No intake or output data in the 24 hours ending 06/03/242100 PHYSICAL EXAM: Gen???l: well-appearing nontoxic in NAD. Appears as stated age. HEENT: Head - NC/AT. Eyes - no scleral icterus, PERRLA, EOMI. Ears - no drainage. Nose - No drainage, no masses. Mouth - No erythema, mucous membranes moist, no pallor, no lesions. Neck - Supple, no lymphadenopathy, swelling or masses Pulmonary: CTAB, normal work of breathing, clear to percussion bilaterally CV: +S1 and S2, no S3 or S4. RRR, no m/g/r. No JVD appreciated. Abdomen: Soft, nondistended, slightly tender to palpation Musculoskeletal - Moves all extremities, no joint tenderness, normal ROM Extremities - extremities warm, pulses 2+ bilaterally, no c/c/e, no LE edema Skin - No rashes, blisters, sores or other lesions. Neurologic: Mental status - A&Ox4 LABS/RADIOLOGY: Recent Results (from the past 24 hours) POCT glucose Collection Time: 06/03/24 5:26 AM Result Value Ref Range Glucose, POC 77 70 - 199 mg/dL ASSESSMENT & PLAN Phil Chase is a 28 y.o. male with PMHx HIV (previously on HAART on Biktarvy, last dose reportedly 1 month ago), PTSD, amphetamine use who presents after overdose of benzodiazepines. #Benzodiazepine Overdose Ingested 27 2mg tabs of xanax. Brought to ED slightly bradycardic, otherwise hemodynamically stable. Evaluated by tox in ED, no indication for flumazenil. UDS positive for amphetamines, cocaine, no benzos in UDS and no history of being prescribed these. Unclear how this was obtained or whether UDS without benzos is false negative. Mentating normally on arrival to floor -CTM -Tox following #Suicidal Ideation History of multiple psychiatric hospitalizations and presentations for SI, 25+ presentations to ED thus far this year. Home regimen abilify, doxepine, and duloxetine. Frequently evaluated by psych who assess patient as having chronic SI rarely meeting criteria for admission -Hold psychotropic meds per psych team -1:1 sitter, suicide precautions -Psych following #HIV Diagnosed in 2018, on biktarvy though inconsistent adherence. CD4 count on presentation 169, improved from 3 weeks and 1 month ago. -ID consult -Likely plan to continue biktarvy and bactrim for PJP prophylaxis #Diarrhea Patient with several days of diarrhea, continuing in ED. Reports intermittent bright blood, though unsure whether this is hemorrhoidal or in stool. Has abdominal discomfort but no fevers/chills. Hgb stable, no leukocytosis. No recent travel, food/water/animal exposures. No recent abx. Had new sexual partner in last week. High suspicion for infectious causes, lower suspicion for medication-relatedgiven not taking biktarvy in last year. No personal or fam hx of IBD. -Stool culture + O&P -G/C + T -ESR, CRP, fecal calpro -Immodium PRN #NAGMA VBG on initial presentation 7.22/61/35, bradycardic to 40s. Bicarb improved in ED to 43, with persistent acidosis to 7.25. No anion gap. Several days diarrhea prior to ED presentation. Chloride and Knormal. Renal function wnl. Lactate 2.3 -> 2.8 in ED. Low suspicion for RTA given normal K and bicarb. Suspect diarrhea as cause of NAGMA, low suspicion for systemic infection given hemodynamic sta bility and patient feeling well. -TFTs wnl -Calcium wnl, low concern for parathyroid/MM -Normal renal function -UA w/o glucose, ketones. Urine pH wnl 6. 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 Treated w/ 3 doses penicillin at that time. Serologies persistently low but elevated, per ID likely slow to return to negative iso HIV. Low concern for active infection. 1:512 at last admission. No new Assessment & Plan notes have been filed under this hospital service since the last note was generated. Service: [employer] FEN: reg diet, replete lytes prn. Ppx: Holding prophylaxis as patient is ambulatory Code: FULL CODE Geo [facility] Internal Medicine PGY3 Cosigned by Rahel Miller MD at 06/04/2024 4:43 PM ORACLE HRMS CONSULTANT LE HRMS CONSULTANT LE HRMS CONSULTANT LE HRMS CONSULTANT LE HRMS CONSULTANT LE HRMS CONSULTANT LE HRMS CONSULTANT Associated attestation - Rahel Miller MD - 06/04/2024 4:43 PM ORACLE HRMS CONSULTANT Attending Documentation I have seen and examined the patient on 06/04/24. I agree with the findings and plan of care as documented in the resident's/fellow's note. Mr. Chase is a 28 year old gentleman with PMH of HIV, PTSD, Amphetamine abuse, & borderline personality disorder who presented after endorsing ingesting >20 tablets of Xanax. Interestingly his UDS is negative for benzo. Tox and psych was consulted in ED and he was initially admitted to medicine for med clearance. Today he reports feeling okay other than some mild abdominal pain and diarrhea (of note RN states he has not had a bowel movement in 12 hour). His labs are stable and CD4 count continues to remain low at 169. ID has been consulted due to his history of GUPTA non-compliance. Plan to follow-up psych recs and anticipate transfer to inpatient vs discharge home. Supplementary Attestation Today, I am treating the patient for benzodiazepine overdose which is in severe exacerbation, progression, or experiencing treatment side effects as evidenced by need for toxicology consult and CMP monitoring, as described in the note. Reviewed records from the following unique sources (external institutions or providers from different services): Psych note. The patient's diagnosis is significantly impacted by the following social determinants of health: health literacy and access to healthcare. Rahel Miller MD documented in this encounter Procedure Notes * Germaine Torres MD - 06/06/2024 11:45 AM CSTAssociated Order(s): Lumbar Puncture Post-Procedure Diagnose(s): HIV infection, unspecified symptom status (HCC) Lumbar Puncture Date/Time: 06/06/2024 11:46 AM Performed by: Michelle Graham MD Authorized by: Geo Palacios MD [place] Protocol: RN Notified of Procedure: yes Informed consent: Risks, benefits, alternatives discussed and patient/premium service representative/guardian agrees and accepts Patient's stated name/ matches armband: Yes Allergies confirmed: yes Consent form signed, dated, timed; matches correct patient, intended procedure and site: Yes Imaging: Pertinent imaging reviewed, correctly oriented and match to patient identifiers Lab/Diag test results: Pertinent lab/diag tests reviewed and match to patient identifiers Supplies, devices and special equipment are available: yes Site/side marked: yes Immediately prior to the procedure a time out was called: a verbal verification by the procedure participants confirmed correct patient identity, correct site/side marked and visible (if applicable);agreement on procedure to be done; and correct patient positioning Indications: Evaluation for infection Anesthesia (see MAR for exact dosage) Anesthesia method: Local infiltration Local anesthetic: Lidocaine 1% Patient prepararion: Gloves, mask and partial body drape Skin preparation: Skin prepped with povidone-iodine Lumbar space: L4-L5 interspace Patient's position: Left lateral decubitus Needle type: Spinal needle - Quincke tip Number of attempts: 1 Opening pressure (cm H2O): 18.5 Fluid appearance: Clear Tubes of fluid: 5 Total volume (ml): 25 Post-procedure: Adhesive bandage applied Patient tolerance: Patient tolerated the procedure well with no immediate complications Post Procedure Debrief: All guidewires, needles, sponges or other items are accounted for: yes Any special post procedure monitoring, testing or other considerations: n/a All specimens identified, labeled and matched to patient identification: yes Responsible alliance party for transporting specimen(s) to lab determined: yes Cosigned by Geo Palacios MD at 06/06/2024 4:38 PM ORACLE HRMS CONSULTANT LE HRMS CONSULTANT LE HRMS CONSULTANT Associated attestation - Geo Palacios MD - 06/06/2024 4:38 PM ORACLE HRMS CONSULTANT I was present for the entire procedure. documented in this encounter Consult Notes * Divya Larkin RD - 06/05/2024 3:08 PM CSTAssociated Order(s): IP CONSULT TO NUTRITION SERVICES NUTRITION ASSESSMENT Nutrition Status: Patient meets criteria for severe chronic malnutrition, reference AAIM (ASPEN) guidelines. Present on Admission: Yes REASON FOR ASSESSMENT: Consult/Referral - At Risk MST Score Encounter Date: 06/05/24 3:08 PM Admission Date: 06/02/2024 LOS: 3 days HPI: Patient is a 28 y.o. male with PMHx HIV (previously on HAART on Biktarvy, last dose reportedly 1 month ago), PTSD, amphetamine use who presents after overdose of benzodiazepines. Objective Past Medical History: Diagnosis Date Anal [...] Patient Unable To Answer (05/03/2024) Received from [facility] Health AUDIT-C Frequency of Alcohol Consumption: Patient unable to answer Average Number of Drinks: Patient unable to answer Frequency of Binge Drinking: Patient unable to answer MEDICATION/LAB REVIEW: Scheduled Meds: acyclovir, 10 mg/kg, intravenous, Q8H KIMBERLEY cefTRIAXone, 2,000 mg, intravenous, Q12H KIMBERLEY sodium chloride 0.9%, 0.5-20 mL, intra-catheter, Q8H KIMBERLEY (ALT) sulfamethoxazole-trimethoprim, 160 mg of trimethoprim, oral, Once per day on Sunday Continuous Infusions: PRN Meds: sodium chloride 0.9% loperamide ramelteon sodium chloride 0.9% Recent Labs Lab Units 06/04/242035 SODIUM mmol/L 136 POTASSIUM PLASMA mmol/L 3.7 CHLORIDE mmol/L 104 CO2 mmol/L 25 BUN SERUM mg/dL 11 CREATININE mg/dL 1.10 [id number] mL/min/1.73 m2 >90 CALCIUM mg/dL 8.8 ALBUMIN g/dL 3.4* Recent Labs Lab Units 06/04/24203506/04/24 0610 06/03/24 0526 06/02/24 1722 06/02/24 1525 06/02/24 1426 06/02/24 1350 GLUCOSE mg/dL 94 103 -- 69* -- -- -- POC GLUCOSE MONITOR mg/dL -- -- 77 -- 106 73 56* ALT Date Value Ref Range Status 06/04/2024 16 7 - 55 Units/L Final AST Date Value Ref Range Status 06/04/2024 21 10 - 50 Units/L Final Alk phos Date Value Ref Range Status 06/04/2024 73 40 - 130 Units/L Final Lab Results Component Value Date HGBA1C 5.7 08/01/2017 HDL 33 (L) 06/02/2024 LDLCALC 65 06/02/2024 CHOL 110 06/02/2024 TRIG 51 06/02/2024 NURSING ASSESSMENT: Last BM Date: 06/03/24 Bowel Sounds (All Quadrants): Active Kumar Scale Score: 19 Skin Integrity: Abrasion Vital Signs @FLOW(5) Temp: 36.9 ??C (98.4 ??F) Pulse: 87 Resp: 18 SpO2: 99 % Intake/Output Summary (Last 24 hours) at 06/05/2024 1508 Last data filed at 06/05/2024 0515 Gross per 24 hour Intake -- Output 250 ml Net -250 ml Adult Malnutrition Scoring Tool (MST) What diet do you follow at home?: regular Have You Recently Lost Weight Without Trying?: Unsure Have you been eating poorly because of a decreased appetite?: No Malnutrition Screening Tool (MST) Score: 2 Hunger Screen - Admission Within the past [...] before you got the money to buymore.: Often true Within the past 12 months, the food you bought just didn't last and you didn't have money to get more.: Often true Anthropometrics Weight: 68 kg (149 lb 14.4 oz) Admission Weight : 68 kg Weight Change: -13.60 kg (-29.99 lbs) IBW/kg (Calculated) : 80.7 kg Height: 182.9 cm (6') Weight in (lb) to have BMI = 25: 183.9 BMI (Calculated): 20.3 Wt Readings from Last 10 Encounters: 06/03/24 68 kg (149 lb 14.4 oz) 05/10/24 81.6 kg (180 lb) 04/30/24 81.6 kg (180 lb) 04/28/24 81.6 kg (180 lb) 04/14/24 81.6 kg (180 lb) 04/04/24 81.6 kg (180 lb) 03/03/24 83 kg (183 lb) 03/02/24 81.6 kg (180 lb) 03/01/24 81.1 kg (178 lb 12.7 oz) 02/24/24 81.1 kg (178 lb 12.8 oz) ESTIMATED NEEDS: . Dietary Orders (From admission, onward) Start Ordered 06/03/242007 Adult Diet Regular; Suicidal; Send on Disposables, Deliver tray to nursing, Brushing Operator check (Suicide Precautions - High) Diet effective now Question Answer Comment ([facility]) Diet type Regular Safety Precautions: Suicidal Injury Risk: Send on Disposables Injury Risk: Deliver tray to nursing Injury Risk: Brushing Operator check Patient Location: [facility] Main [place] 06/03/242006 Allergies: Reviewed. IMPRESSION: Pt was seen due to a nutrition consult for an at risk MST score of 2. Pt reports that he had a goodappetite prior to admission and was eating 3 meals/day. Pt did not provide much information. He denies any nausea, vomiting, or constipation; however, endorses diarrhea. Pt describes the frequency atabout 4/day. Pt has imodium ordered PRN. Currently, the pt endorses a good appetite as well. He reports that he is eating 100% of meals. When asked about weight loss the pt reports a UBW of 180 lbs. Pt is currently 149 lbs. This is an 18% weight loss which is significant per ASPEN criteria. Per chart review the pt was 183 lbs in February. Pt was agreeable to a nutrition supplement. Will order Ensure Plus HP TID. Would suspect that given this significant weight loss the pt was not meeting nutrition needs. Pt meets criteria for malnutrition. AAIM (ASPEN) MALNUTRITION ASSESSMENT: Date of completion: 06/05/2024 ASPEN/AND Malnutrition Screening: Chronic illness or injury severe Energy Intake: < 75% energy intake compared to estimated energy needs > (or equal to) 1 month Weight Loss: > 7.5% in 3 months Subcutaneous Fat Loss Severity: Clinical criteria not met Muscle Mass Loss Severity: Clinical criteria not met Patient Meets Criteria for Severe Malnutrition: Yes NUTRITION FOCUSED PHYSICAL EXAM: Completed. NUTRITION DIAGNOSIS: Nutrition Diagnosis 1: Protein-Calorie Malnutrition - Severe Related to: Chronic illness/injury Evidenced by: Weight loss, Inconsistent PO intakes INTERVENTION(S): Summary: Encouragement, Follow up per policy, [place] diet preferences within the limits of nutritioncare order, Medical food supplement, Regular weights Order Ensure Plus HP chocolate TID Recommend regular weights Continue adequate PO intake Monitor stool patterns GOAL(S): Oral intake to meet 75% estimated nutritional needs by next assessment, Tolerance of medical food supplement by next assessment MONITORING/EVALUATION: Appetite, Diet-related questions, Labs, GI output, Food preferences, PO intake, Weight changes, Supplement tolerance Divya Larkin LE HRMS CONSULTANT * Cuco Chavarria MD - 06/05/2024 2:17 PM CSTAssociated Order(s): IP CONSULT TO OPHTHALMOLOGY OPHTHALMOLOGY - INPATIENT NEW CONSULT REPORT Reason for Consult: 28 yo PMH of HIV on intermittent biktarvy, previously treated syphilis with concerns of ocular syphilis, presents with recent floaters/blurry vision and RPR 1:32 Admit Date: 06/02/2024 9:09 AM Admit Diagnosis: Respiratory acidosis [E87.29] Intentional benzodiazepine overdose, initial encounter ([facility]) [T42.4X2A] Low CD4 cell count determined by flow cytometry [D72.818] Diarrhea, unspecified type [R19.7] Nonadherence to medication [Z91.148] History of Present Illness This is a 28 y.o. male with PMH of HIV, PTSD, amphetamine use, and OHx of none, who was admitted on06/02 following benzodiazepine overdose. Ophthalmology is consulted for 1-day history of floaters and flashes of light i/s/o positive RPR titer (1:32). Patient states he has noticed flashes and floaters out of both eyes since yesterday associated withsubjective blurry vision. Denies eye pain or photophobia. Past ocular surgeries: none Current ocular medications: none Family history of ocular problems: none Review of Systems: Unless noted in HPI all other systems negative. Past Ocular History: see HPI Past Medical History: Diagnosis Date Anal warts Borderline personality disorder ([facility]) ([facility]) Depression prior suicide attempts (10/2023, 02/2024) Depression with suicidal ideation HIV (human immunodeficiency virus infection) ([facility]) HIV (human immunodeficiency virus infection) ([facility]) Dx 2018 Methamphetamine use disorder, moderate, in early remission ([facility]) Neuropathy ([facility]) PTSD (post-traumatic stress disorder) Syphilis [...] Patient Unable To Answer (05/03/2024) Received from [facility] Health AUDIT-C Frequency of Alcohol Consumption: Patient unable to answer Average Number of Drinks: Patient unable to answer Frequency of Binge Drinking: Patient unable to answer Current eye medications: see HPI Current Facility-Administered Medications Medication Dose Route Frequency Provider Last Rate Last Admin acyclovir (ZOVIRAX) 700 mg in sodium chloride 0.9% 100 mL IVPB 10 mg/kg intravenous Q8H Jeremy Abdalla MD 114 mL/hr at 06/05/24 0945 700 mg at 06/05/24 0945 Carrier Fluids for Secondary Infusion - 0.9% Sodium Chloride 30 mL intravenous PRN Geo Chaudhry MD cefTRIAXone (ROCEPHIN) 2,000 mg/20 mL in sterile water (premix) 2,000 mg 2,000 mg intravenous Q12H [facility] Jeremy Luis MD 2,000 mg at 06/05/24 0944 loperamide (IMODIUM) capsule 2 mg 2 mg oral BID PRN Jeremy Luis MD ramelteon (ROZEREM) tablet 8 mg 8 mg oral Nightly PRN Geo Chaudhry MD sodium chloride 0.9% flush 0.5-20 mL 0.5-20 mL intra-catheter Q8H [facility] (ALT) Geo Chaudhry MD 10 mL at 06/05/24 0945 sodium chloride 0.9% flush 0.5-20 mL 0.5-20 mL intra-catheter PRN Geo Chaudhry MD sulfamethoxazole-trimethoprim (BACTRIM DS) 800-160 mg per tablet 160 mg of trimethoprim 160 mg of trimethoprim oral Once per day on Sunday Caitlyn Salinas MD 160 mg of trimethoprim at 06/04/24 1722 Physical Exam: Vitals: 06/05/24 1019 BP: 107/45 Pulse: Resp: Temp: SpO2: Base Eye Exam Visual Acuity (Snellen - Linear) Right Left Near sc 20/20 20/30, 20/20 PH Tonometry (Tonopen, 2:03 PM) Right Left Pressure 9 14 Pupils Dark Light Shape React APD Right 5 2 Round Brisk None Left 5 2 Round Brisk None Visual Castro Left Right Full Full Extraocular Movement Right Left Full Full Neuro/Psych Oriented x3: Yes Mood/Affect: Normal Dilation Both eyes: 1.0% Mydriacyl, 2.5% Phenylephrine @ 2:04 PM Additional Tests Color Right Left Ishihara 07/03 07/03 Slit Lamp and Fundus Exam Slit Lamp Exam Right Left Lids/Lashes Normal Normal Conjunctiva/Sclera White and quiet White and quiet Cornea Clear Clear Anterior Chamber Deep and quiet Deep and quiet Iris Round and reactive Round and reactive Lens Clear Clear Anterior Vitreous Normal, no vitritis Normal, no vitritis Fundus Exam Right Left Disc Normal Normal C/D Ratio 0.6 0.6 Macula Normal Normal Vessels Normal Normal Periphery Normal, no RT/RD, no chorioretinal lesions Normal, no RT/RD, no chorioretinal lesions ASSESSMENT/PLAN AND RECOMMENDATIONS: # c/f Ocular Syphilis - 28-year-old male with PMH notable for HIV, amphetamine use, and OHx of none, consulted due to 1 day history of flashes and floaters OU with c/f possible ocular syphilis per primary team - RPR titer positive 1:32 (06/04/24) - Exam reassuring and without evidence of ocular syphilis Recommendations: - No acute ophthalmological intervention #Glaucoma suspect - Incidentally noted enlarged CDR OU 0.6 - IOP wnl (04/05) today with Tonopen Recommendations: - Outpatient follow-up with ophthalmology for further testing If patient experiences any new vision changes, new flashes/floaters, eye pain, diplopia, or any other concerning ocular changes please page on-call ophthalmology resident. Cuco Chavarria MD 06/05/2024 5:17 PM Ophthalmology Resident PGY-2 Please page the ophthalmology resident on-call via [employer] with any questions. This consult is NOT complete without attending attestation and/or cosign. Please note that bedside hospital exams have several limitations that can affect reliability and make it difficult to discern both short-term and long-term visual outcomes including limitations of bedside equipment, [...] wool spot; DBH = dot blot hemorrhage; HM = hand motion vision; IOL = intraocular lens; IOP = intraocular pressure; K = cornea; LP = light perception vision; NAION = non- arteritic ischemic optic neuropathy;NLP = no light perception vision; NPDR = nonproliferative diabetic retinopathy; OD = right eye; OS = left eye; PDR = proliferative diabetic retinopathy; PH = pinhole visual acuity; POAG = primary open angle glaucoma; RT = retinal tear; RD = retinal detachment; VA = visual acuity; VH = vitreous hemorrhage; VF = visual field Cosigned by Lloyd Benítez MD PhD at 06/05/2024 11:00 PM ORACLE HRMS CONSULTANT LE HRMS CONSULTANT LE HRMS CONSULTANT Associated attestation - Lloyd Benítez MD PhD - 06/05/2024 11:00 PM ORACLE HRMS CONSULTANT I have seen and examined the patient on 06/05/24. I agree with the findings and plan of care as documented in the resident's/fellow's note. * Kay Granados MD PhD - 06/04/2024 12:12 PM CSTAssociated Order(s): CONSULT TO GENERAL INFECTIOUS DISEASE Infectious Disease Initial Consult Note Infectious Disease Team: General ID Team 1 Contact Information: General ID Team Requesting Physician: Rahel Miller * Reason for Consult: C/F bloody diarrhea in HIV patient with CD4 of 164 off biktarvy for 1 month [phone] Diagnostic and treatment recommendations, as well as assistance with follow up care. Assessment/Plan 28 y.o. male with HIV previously on Biktarvy now presenting with benzodiazapine overdose and suicidal ideation. He has been off his ART for at least a month, likely longer. He follows at [facility] (Dr. Sullivan). 06/02 CD4 169 10%, VL 20k, increased from prior VL 4k in 03/2024. ID was consulted for recommendations regarding his HIV management and a concern for blood in stool. Regarding his diarrhea, he stated he has had approximately 1 week of bloody diarrhea, abdominal pain, vomiting, subjective fevers. Infection related differential for bloody diarrhea includes pathogens such as Shigella, Salmonella, E coli, Campylobacter. Given sexual history, could be a high risk for sexual transmission versus food-borne illness. Could also consider other causes of diarrhea and HIV patient including Cryptosporidium, Giardia, CMV. He denied any symptoms of rectal pain consistent with proctocolitis. Patient has a history of possible neurosyphilis 09/2023 with RRP 1:1024 (LP done with 10 nucleated cells, VDRL negative) previously treated with 14 days of IV penicillin during inpatient admission. Last admission 04/08-04/10 RPR titer was 1:64, similar to prior testing suggested of a treated infection. However, he was re-tested 04/14 with titer subsequently increasing to 1:512, with no clear record of re-treatment with penicillin. Patient stated he did have a recent sexual partner who told him he was positive for syphilis. RPR can be persistently elevated especially in HIV, but only 4x changes intiter should prompt re-treatment. Given his increase in titer and report of exposure is highly suspicious of an acute reinfection versus variability in reading of the RPR assay. No signs of secondarysyphilis on exam, however patient stating he has been having approximately 1 week of continuous throbbing headaches with photophobia and pain on asking him to bend neck today. Could be concerning for neurosyphilis. Differential for headache and neck stiffness in an uncontrolled HIV patient include cryptococcus, common and opportunistic viruses and bacterial causes. He had appropriate mentation, is non-toxic appearing, has been afebrile off antibiotics, no leukocytosis, and with some concern forembellishment of symptoms and attention seeking behavior, however would take his concerns seriouslyat this time and monitor closely. Given his high risk sexual behavior and IV drug use, would screen for other STIs including rectal and pharyngeal gonorrhea/chlamydia. Would also send repeat testing for hepatitis-B and C. #HIV, not on ART #Syphilis, possible neurosyphilis #Concern for dysentery Recommendations: - Hold Biktarvy at this time, at least until result of crypto serum antigen has returned. - Start Bactrim DS 1 tablet three times weekly for PJP prophylaxis. - Obtain: blood cultures, crypto serum antigen, histo urine antigen, RPR, CMV IgG/IgM and PCR serum, HBV (surface Ag and Ab, core IgG and IgM, gonorrhea/chlamydia throat and rectal swabs, stool culture, stool O&P, stool giardia and cryptosporidium - Recommend ophthalmology exam for syphilitic eye disease given blurry vision - Given headaches, neck stiffness, and vision changes with differential including but not limited to neurosyphilis and cryptococcus, recommend LP. - Hold further antibiotics unless patient shows signs of systemic illness and decompensation or until LP obtained. If decompensates would recommend meningitis coverage. - General ID will continue to follow. Please reach out with questions or concerns to the number at the top of this note or message the ID fellow signed in to the chart. After normal business hours, please call the education administrative assistant ID fellow at [phone]. - General ID Team 1 CONDENSER WINDER [place] [phone] Today, I am treating the patient for HIV, syphilis, possible neurosyphilis, possible dysentery which can cause sepsis, worsening neurological symptoms, vision loss in the short-term future in the absence of appropriate treatment, as described in the note. Kay Granados MD PhD PGY-4 Infectious Disease Fellow 06/04/24 Part of this note was generated using dictation. Some words and phrases may have been substituted for similar sounding words and phrases and may have escaped proofreading. If there are any questions or concerns, please contact Dr. Granados for clarification or correction. Subjective HPI: Phil Chase is a 28 y.o. male with relevant PMH including HIV, stimulant use disorder, homelessness. He has numerous ED presentations and hospitalizations for suicidal ideation and attempts at self-harm. He is now admitted for benzodiazepine overdose suicide attempt. [facility]. On presentation, he reported several days of diarrhea with bright red blood in stools. Labs are notable for hypoglycemia to 57, lactate up to 2.8, although no documented fever this admission and WBC 3.9. UDS was negative for benzodiazepines, although per toxicology this can occur with some benzos such as alprazolam. Per initial notes, he denied any fevers or chills or rashes. However, to ID consult team today, he reported a week of feeling feverish and chilled along with abdominal pain, nausea, vomiting, bright red blood mixed into his bowel movements. He denied any pain in his rectum with defecation, rash, sores. He stated that he has not had any bowel movements since coming up to the floor. He also reported a continuous, throbbing, bitemporal headache and bilateral blurry vision for approximately 1 week. When asked to touch his chin tohis chest, he stated that this caused pain in his neck. When examiner attempted to move his neck passively he grimace and said it hurt. He stated he has a chronic floater in his right eye that has been there for many years and has not changed, but otherwise denied new floaters or sparkles in visionor loss of vision. He denied any changes to his hearing. When discussing the possible need for LP given his headache and neck pain with the recent increase in his RPR, he became very tearful. He said he was scared. After being reassured, he asked for a turkey sandwich and some juice. He stated he has been sexually active. He was told by a recent sexual partner that he may have beenexposed to syphilis. He continues to use methamphetamines, both smoking and injection. He has not taken his Biktarvy in over a month, although he says he has access to it and it is at his local pharmacy. He still reports an interest in seeing his HIV provider at [facility]. I have reviewed the following past medical history and medications. Past Medical History: No date: Anal warts No date: Borderline personality disorder ([facility]) ([facility]) No date: Depression Comment: prior suicide attempts (10/2023, 02/2024) No date: Depression with suicidal ideation No date: HIV (human immunodeficiency virus infection) ([facility]) No date: HIV (human immunodeficiency virus infection) ([facility]) Comment: Dx 2018 No date: Methamphetamine use disorder, moderate, in early remission ([facility]) No date: Neuropathy ([facility]) No date: PTSD (post-traumatic stress disorder) No date: Syphilis (acquired) Comment: Rx'd with 3 IM doses of Penicillni per patient HOME MEDICATIONS : buPROPion XL (WELLBUTRIN XL) 150 mg 24 hr tablet busPIRone (BUSPAR) 10 mg tablet busPIRone (BUSPAR) 5 mg tablet ibuprofen (ADVIL,MOTRIN) 600 mg tablet traZODone (DESYREL) 50 mg tablet ARIPiprazole (ABILIFY) 10 mg tablet rhvkmyfbrjb-nlkxfmqhlivyk-xgzswuzzp (Biktarvy) 50-200-25 mg tablet doxepin (SINEquan) [address] (CYMBALTA) 60 mg capsule gabapentin (NEURONTIN) 100 mg capsule HYDROcodone-acetaminophen (NORCO) 5-325 mg per tablet hydrOXYzine (ATARAX) 50 mg tablet sulfamethoxazole-trimethoprim (BACTRIM DS) 800-160 mg per tablet I have reviewed the following allergies. No Known Allergies I have reviewed the following social history. 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 reports that he has quit smoking. His smoking use included cigarettes. He has been exposed to tobacco smoke. He has never used smokeless tobacco. He reports current drug use. Frequency: 3.00 times per week. Drug: Methamphetamines. Family history was reviewed and was non-contributory to current presentation. Family History Problem Relation Age of Onset Suicide Completion Father Other (overdose) Father Hypertension Maternal Grandmother Diabetes type II Maternal Grandmother Review of systems: Review of systems was negative except for that stated in the HPI. Objective Vitals: 06/04/24 0721 BP: 129/49 Pulse: 68 Resp: 16 Temp: SpO2: 97% No intake/output data recorded. Physical Exam: Constitutional: Well appearing, no distress. HENT: Normocephalic, atraumatic. Sinuses non-tender. Oropharynx is moist. Normal dentition. No thrush. Eyes: Conjunctivae and EOM are normal. PERRL. Neck: Pain with anterior flexion, would not allow examiner to passively move neck, as he stated it hurts. Cardiovascular: Normal rate, regular rhythm, normal heart sounds. No murmurs, rubs, gallops. No lower extremity edema. Pulmonary/Chest: Effort normal. No respiratory distress. CTABL. On room air. Abdominal: Soft, non-tender to palpation. Musculoskeletal: Normal bulk and tone. No deformities. Neurological: Alert and oriented to person, place, and time. Face symmetric. No dysarthria. Moving all extremities spontaneously. Skin: Skin is warm, dry, and intact. No rash noted. No erythema. Psychiatric: Intermittently tearful. Photos related to exam findings, if applicable: Active Lines/Ports/Devices: Peripheral IV 06/02/24 20 G Anterior;Left Hand (Active) Number of days: 2 Current Facility-Administered Medications Ordered in [facility] Medication Dose Route Frequency Provider Last Rate Last Admin acetaminophen (TYLENOL) tablet 650 mg 650 mg oral Q4H PRN Geo Chaudhry MD 650 mg at 06/04/24 0803 Carrier Fluids for Secondary Infusion - 0.9% Sodium Chloride 30 mL intravenous PRN Geo Chaudhry MD loperamide (IMODIUM) capsule 2 mg 2 mg oral BID PRN Jeremy Luis MD ramelteon (ROZEREM) tablet 8 mg 8 mg oral Nightly PRN Geo Chaudhry MD sodium chloride 0.9% flush 0.5-20 mL 0.5-20 mL intra-catheter Q8H [facility] (ALT) Geo Chaudhry MD 10 mL at 06/04/24 0803 sodium chloride 0.9% flush 0.5-20 mL 0.5-20 mL intra-catheter Geo Snider MD No current [facility]-ordered outpatient medications on file. Lab/Radiology/Diagnostic Review: I reviewed the following laboratory and imaging result(s). Micro: Lab Results Component Value Date MICROBIOLOGY Preliminary Report: Culture results pending. 06/02/2024 MICROBIOLOGY Final Report: No growth of fungus 10/12/2023 MICROBIOLOGY Final Report: No growth 10/12/2023 MICROBIOLOGY 08/03/2017 Final Report: Negative for: Chlamydia trachomatis rRNA Negative for: Neisseria gonorrhoeae rRNA MICROBIOLOGY (.) 08/02/2017 Final Report: Few Mixed upper respiratory tract microorganisms. MICROBIOLOGY Final Report: No growth of fungus 08/02/2017 MICROBIOLOGY Final Report: No growth of acid-fast bacilli 08/02/2017 MICROBIOLOGY 08/01/2017 Final Report: Insignificant growth based on current clinical standards. MICROBIOLOGY 08/01/2017 Direct Antigen Testing - Final: Negative for: Histoplasma antigen Histoplasma Antigen Result: None detected. * * * * * Result Interpretation: Reference interval: None Detected Results reported as ng/mL in 0.4 - 19 ng/mL Results above the limit of detection but below 0.4 ng/mL are reported as 'Positive, Below the Limitof Quantification' Results above 19 ng/mL are reported as 'Positive, Above the Limit of Quantification' * * * * * * * * * * * * * * * * * * * * This test was developed and its performance characteristics determined by [employer]. Ithas not been cleared or approved by the FDA; however, FDA clearance or approval is not currently required for clinical use. The results are not intended to be used as the sole means for clinical diagnosis or patient management decisions. MICROBIOLOGY Final Report: No growth of fungus 08/01/2017 Urinalysis: Resulted in the Past 12 Months 06/02/24 1028 COLORU Straw CLARITYU Clear SPECGRAVU 1.037* PHURINE 6.0 PROTURQL 1+* GLUCOSEUR Negative KETONESU Negative BLOODUR Negative NITRITEU Negative LEUKESTUR Negative Hematology/Chemistry: Na: 138 Cl: 105 BUN: 8 /Gluc: 103 K: 3.7 CO2: 24 Cr: 0.97 \Mg: - AST: 17 ALT: 19 Alk Phos: 73 Ca: 8.7 TP: - Alb: 3.5 TBili: 0.2, DBili: - \ Hgb: 12.9 / WBC: 4.6 Plt: 292 / MCV: 79.5 \ INR: - (Labs above are the most recent result obtained in the last 24 hours. For additional labs/trends, see Epic.) Inflammatory Markers: Resulted in the Past 12 Months 10/10/23 1127 SEDRATE 12 CRP 2.1 Screening Results RPR: Lab Results Component Value Date LABRPR Reactive (A) 04/14/2024 LABRPR 1:512 (A) 04/14/2024 GC: Lab Results Component Value Date CTRACHOMATIS Not Detected 05/10/2024 NGONORRHOEAE Not Detected 05/10/2024 Hepatitis Serologies: Lab Results Component Value Date HEPAIGM Nonreactive 10/11/2023 HEPBSAG Nonreactive 04/08/2024 HEPBSAB Nonreactive 04/08/2024 HEPBCAB Nonreactive 10/11/2023 HEPCAB Nonreactive 04/08/2024 Virologic Testing: HIV Screen: Lab Results Component Value Date [id number] Reactive (A) 08/01/2017 CD4: Lab Results Component Value Date CD4ABS 169 (L) 06/02/2024 CD4PCT 10 (L) 06/02/2024 Common Virologic Results: Lab Results Component Value Date QDK2WSC Detected (A) 04/28/2024 [id number] 20,000 04/28/2024 ZCB6QEE 4.30 04/28/2024 CD4ABS 169 (L) 06/02/2024 CD4PCT 10 (L) 06/02/2024 NUCLEOSRT L210W,T215S 04/08/2024 NONNUCRTMUT None 04/08/2024 PROTEASEMUT None 04/08/2024 INTEGRASEMUT None 04/08/2024 TOXOIGG Negative 08/02/2017 Diagnostics: EKG:No results found for: VR , AR , PRIMSEC , QRSIMSEC , QTIMSEC , QT , PA , RA , TA , DIAG Echo: Imaging: XR Chest 1 Vw Portable Result Date: 06/02/2024 Comparison is made to prior study of 04/28/2024. In the interval, no change. The lungs are clear. Specifically, no pulmonary edema or pneumonia. No pleural effusion or pneumothorax. Heart size and mediastinal contour are normal. Electronically signed by: Tanner Lees M.D. XR Ankle Right 3 or More Views Result Date: 05/31/2024 IMPRESSION: No acute osseous abnormality. DICTATION LOCATION: [address] XR Ankle Left 3 or More Views Result Date: 05/10/2024 No acute fracture Osseus alignment appears normal on this nonweightbearing exam. Dictated by: Yee Oglesby M.D. The radiology attending physician has personally reviewed this study, and had reviewed and/or edited this written report and agrees with it. Electronically signed by: Brandy Graves M.D. Assessment/Plan is now at the top of the note. Cosigned by Piedad Gaspar MD at 06/04/2024 7:53 PM ORACLE HRMS CONSULTANT LE HRMS CONSULTANT LE HRMS CONSULTANT LE HRMS CONSULTANT LE HRMS CONSULTANT LE HRMS CONSULTANT LE HRMS CONSULTANT LE HRMS CONSULTANT LE HRMS CONSULTANT LE HRMS CONSULTANT LE HRMS CONSULTANT Associated attestation - Piedad Gaspar MD - 06/04/2024 7:53 PM ORACLE HRMS CONSULTANT I have seen and examined the patient on 06/04/24. I agree with the findings and plan of care as documented in the resident's/fellow's note. Bloody diarrhea in patient with advanced HIV who is admitted with overdose and suicidal ideation. He is unhoused and nonadherent to ART. Shigella, Salmonella, Campylobacter likely, stool studies pending. Also has history or positive RPR, send repeat and STI testing with recent exposures. Get serum cryptococcal antigen, restart bictegravir/tenofovir alafenamide/emtricitabine (Biktarvy) if negative. * Rosalina Tarsha Mcginnis, SUPERINTENDENT CONTAINER TERMINAL - 06/04/2024 9:46 AM CSTAssociated Order(s): IP CONSULT TO SOCIAL WORK Reason for consult/assessment: Mental health needs; high risk for readmission or high utilizer patient; counseling and support. High readmission risk (42%) and 13 inpatient hospitalizations in 12 months. Background: Per H&P: Phil Chase is a 28 y.o. male with PMHx HIV (previously on HAART on Biktarvy, last dose reportedly 1 month ago), PTSD, amphetamine use who presents after overdose of benzodiazepines. SW assessment: SW met pt at bedside to complete consult and assessment. Patient triggers for assessment due to 42% readmission risk and 13 inpatient hospital admissions in last 12 months. Last socialwork assessment was 04/07. Patient has had multiple presentations to ED for SI. Psychiatry consult was 06/03. When SW met pt at bedside and asked how pt was feeling, he responded suicidal . SW asked if pt hadplan in place, pt stated overdosing . Per chart review, pt has significant hx of MH and CD concerns. Patient is currently homeless and reports he was at [facility] but that he wishes to go to [facility]. Patient reports he is followed by [facility]oz[facility] Transcribing Operator Head, Joana ([phone]). Pt consented to [facility] reaching out to Joana. SW attempted to call, unable to leave voicemail. SW intervention: SW provided information on [facility], including the emergency halfway. Patient will need to receive referral via [facility] Case Management in order to accessPositive Directions program through [facility]. SW discussed this with pt at bedside. Patient stated understanding Next steps: Social Work will remain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 Collection Time: 06/02/24 9:35 AM Result Value Ref Range TSH 2.22 0.30 - 4.20 mcIUnit/mL Sepsis Lactate w/ Reflex Collection Time: 06/02/24 9:35 AM Result Value Ref Range Sepsis Lactate 2.3 (H) 0.7 - 2.0 mmol/L eGFR Collection Time: 06/02/24 9:35 AM Result Value Ref Range eGFR >90 >=60 mL/min/1.73 m2 Manual Differential Collection Time: 06/02/24 9:35 AM Result Value Ref Range Differential Manual Cells Counted 115 Neutrophil abs 1.8 1.5 - 6.5 K/cumm Imm gran abs 0.0 0.0 - 0.1 K/cumm Lymphocyte abs 1.7 0.8 - 3.3 K/cumm Monocyte abs 0.2 0.2 - 0.8 K/cumm Eosinophil abs 0.1 0.0 - 0.5 K/cumm Neutrophil pct 47.0 % Lymphocyte pct 36.5 % Monocyte pct 5.2 % Eosinophil pct 3.5 % Variant lymph pct 7.8 % Drugs of Abuse Screen, Urine without Confirmation Collection Time: 06/02/24 10:28 AM Result Value Ref Range Amphetamine, ur Screen Positive, presumptive (A) CutOff 500ng/mL Barbiturates, ur Not Detected CutOff 200ng/mL Benzodiazepines, ur Not Detected CutOff 100ng/mL Cannabinoids, ur Not Detected CutOff 50 ng/mL Cocaine, ur Screen Positive, presumptive (A) CutOff 150ng/mL Fentanyl, Ur Not Detected CutOff 5 ng/mL Methadone, ur Not Detected CutOff 300ng/mL Opiates, ur Not Detected CutOff 300ng/mL Oxycodone, ur Not Detected CutOff 100ng/mL Phencyclidine, ur Not Detected CutOff 25 ng/mL Urine Creatinine 243 mg/dL Urinalysis reflex to microscopic and culture Urine Collection Time: 06/02/24 10:28 AM Specimen: Urine Result Value Ref Range Color, ur Straw Yellow Clarity, ur Clear Clear Specific gravity, ur 1.037 (H) 1.003 - 1.030 pH, urine 6.0 Protein, ur ql 1+ (A) Negative Glucose, ur ql Negative Negative Ketones, ur Negative Negative Bilirubin, ur Negative Negative Blood, ur Negative Negative Urobilinogen, ur <2.0 <2.0 mg/dL Nitrite, ur Negative Negative Leukocyte esterase, ur Negative Negative UA reflex comment Reflex to microscopic UA will be performed. Urinalysis, microscopic only Collection Time: 06/02/24 10:28 AM Result Value Ref Range WBC, ur 0-5 0 - 5 /HPF RBC, ur 0-2 0 - 2 /HPF Epithelial cells, squamous, ur 1-5 0 - 5 /HPF Bacteria, ur Trace (A) Mucous, ur Present (A) Hyaline casts, ur 1-5 0 - 10 /LPF Culture Reflex Comment Reflex conditions for urine culture (WBC >10) not met. Troponin I high-sensitivity 2-hour Collection Time: 06/02/24 11:13 AM Result Value Ref Range Trop I hs <4 <=35 ng/L Trop I hs delta 0 ng/L Trop I hs interp Insignificant Assessment Patient is a 28-year-old male with past medical history of HIV (previously on HAART with Biktarvy; reportedly stopped taking 1 month ago), borderline personality disorder, PTSD, syphilis, stimulant use who presents for evaluation of alprazolam overdose. Benzodiazepines bind the KAVON-A receptor, which increases inhibitory signalling in the brain. In overdose, patients can present with somnolence. Large overdoses may have greater degrees of [employer]UD[employer] and respiratory depression; however, single agent overdoses are less likely to produce mental status and respiratory changes that require intubation. Mild reduction in heart rate and blood pressure can alsobe seen, although this is more common with IV benzodiazepines. At this time, patient is somnolent but still arousable with adequate EtCO2 (although VBG showing some signs of respiratory acidosis) andis protecting airway -- at this time, would recommend continued monitoring on EtCO2 with repeat VBG/lactate. Although antidotal treatment with flumazenil is available, we would not recommend this in this patient who reports chronic benzodiazepine use, as this can precipitate refractory seizures. Plan Alprazolam Overdose -- Obtain labs, including CK, acetaminophen level, salicylate level -- Please obtain repeat VBG and lactate at 3h from initial draw time -- most likely respiratory acidosis. If does not improve or additional labs concerning for other cause, would consider broadening workup (e.g. toxic alcohols) -- Continue to observe in ED at this time with EtCO2, close airway monitoring - unusual for isolated BDZ ingestion to require intubation, but patient poor historian, so concomitant recreational or other drug ingestion cannot fully excluded We will continue to follow. Please page us with any questions, Tabitha Stout MD Cosigned by Sheron Montano MD at 08/09/2024 12:04 AM ORACLE HRMS CONSULTANT LE HRMS CONSULTANT LE HRMS CONSULTANT Associated attestation - Sheron Montano MD - 08/09/2024 12:04 AM ORACLE HRMS CONSULTANT TOXICOLOGY ATTENDING ATTESTATION I have evaluated and examined the patient in-person on 06/02/24. and As reflected in the history, physical examination, orders, notes, and/or medical decision making, I was personally present while the patient was critically ill and provided critical care services for approximately 45 minutes, excluding time involved in separately billable procedures. Critical care was necessary to treat or prevent imminent or life-threatening deterioration of the following condition(s): alprazolam overdose, sedation, respiratory acidosis. Critical care time was spent by me providing the following: Recommendation of supportive measures: EtCO2 Telemetry Monitoring Serial bedside examinations. I provided emergent necessary critical care medicine services to this patient. I discussed the case with the primary medical team and/or other consulting services. I reviewed the patient's prior medical records. I spent time documenting in the medical record.. I agree with the findings and plan of care as documented in the (resident/fellow)'s note with modifications as documented in my note 28 yo F, PMH HIV, Borderline personality disorder, PTSD, syphilis, methamphetamine use who presentswith reported alprazolam ingestion. States he took 27, 2mg tablets of alprazolam. He states this shania prescription medication. Denies other co-ingestants. Upon initial evaluation, the patient was frequently falling asleep. His exam was notable for hyperreflexia without clonus, tachycardia. Initial labs reviewed, notable for respiratory acidosis. No metabolic acidosis, elevated lactate, CK 361, negative tox workup. His repeat VBG was moderately improved but lactate continuing to uptrend slightly. Patient reassess around 315pm, he is still sleepy and describing weakness and nausea as well as diarrhea. His mental status has improved, which would be consistent with a benzodiazepine overdose. His initial acidosis was respiratory and lactate was elevated. Low concern for a toxic alcohol or other metabolic process at that time. As repeat lactate uptrending and VBG improving slightly, toxic alcohol concern very low. However now that the patient is still acidotic at 7.25 with an improved CO2, concern for a metabolic or infectious process. Recommendations: - Continue EtCO2 monitoring and monitor patient's airway - Repeat labs including VBG, Lactate, serum osms, BMP, beta-hydroxybutyrate - Consider infectious/metabolic workup as the patient's primary ingestion would not explain all of his current symptoms - hypoglycemia, elevated lactate, acidosis - Patient not medically cleared, would consider observation, admission vs ED per primary team Toxicology will continue to follow Sheron Montano MD [employer] of Emergency Medicine Division of Medical Toxicology Please page us with any questions, Requesting physician - Calvin Sainz MD documented in this encounter Nursing Notes * Caitlyn Juan RN - 06/07/2024 11:20 AM CST Patient discharge education complete including medication reconciliation, S&S to monitor, and follow up appointments. VSS per pt baseline. PIV removed per policy. Pt belongings returned. Pt leaving via CAB . No further questions at this time. LE HRMS CONSULTANT documented in this encounter ED Notes * Glenny Hickman RN - 06/02/2024 1:30 PM CST Bed: ED1-10 Expected date: Expected time: Means of arrival: Comments: 3L Glenny Hickman RN 06/02/24 1330 LE HRMS CONSULTANT * Trish Gonzalez RN - 06/02/2024 10:03 AM CST Bed: [facility] Expected date: Expected time: Means of arrival: Comments: 1-8 Trish Gonzalez RN 06/02/24 1003 LE HRMS CONSULTANT * Calvin Sainz MD - 06/02/2024 9:26 AM CST HPI Chief Complaint Patient presents with ??? Psychiatric Evaluation HPI 28-year-old male with a notable history of prior suicidal attempts, bipolar disorder, depression, generalized anxiety disorder, HIV presenting after a suicidal attempt with taking approximately 272 mg Xanax pills per self report but no other medications or no other attempts today. He states his prior attempts have been medication related. Patient is drowsy somewhat limiting his review of systems but he does answer questions appropriately to my examination and admits taking his medications and no other medications now approximately 1 hour ago. Patient denies any traumatic self-harm attempt. He had no symptoms prior to this and states he took these pills in attempt to ???kill himself. ?? Is notable the patient reports noncompliance with his Biktarvy and other medications for approximately 1 month. Review of systems otherwise negative as noted above. Patient History: Patient Active Problem List Diagnosis Date Noted ??? Dental abscess 04/04/2024 ??? Borderline personality disorder (CMS/HCC) ([facility]) 03/03/2024 ??? Neutropenia ([facility]) 03/03/2024 ??? Limping 03/03/2024 ??? Suicide attempt ([facility]) 02/24/2024 ??? Lower extremity pain, right 02/24/2024 ??? Stimulant use disorder 02/24/2024 ??? Suicide ideation 01/29/2024 ??? Cannabis use disorder, severe ([facility]) 01/26/2024 ??? Routine general medical examination at a health care facility 01/26/2024 ??? PTSD (post-traumatic stress disorder) 10/12/2023 ??? Vertigo 10/11/2023 ??? Unspecified mood disorder (HCC) 10/10/2023 ??? HIV disease (CMS/HCC) ([facility]) 10/03/2023 ??? Syphilis 10/03/2023 ??? Inguinal hernia 10/03/2023 ??? 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HCC) 10/03/2023 ??? Plaque psoriasis 10/03/2023 ??? Methamphetamine use disorder, moderate (HCC) 10/03/2023 ??? Borderline personality disorder, rule out other organic causes of unusual pEX/MSE 10/02/2023 ??? HIV (human immunodeficiency virus infection) ([facility]) 10/30/2022 ??? Skin lesion 10/30/2022 ??? Painless rectal bleeding 10/30/2022 ??? Depressive disorder 10/30/2022 ??? 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 Condyloma 10/29/2020 Past Medical History: Diagnosis Date ??? Anal warts ??? Borderline personality disorder (CMS/HCC) ([facility]) ??? Depression prior suicide attempts (10/2023, 02/2024) ??? Depression with suicidal ideation ??? HIV (human immunodeficiency virus infection) ([facility]) ??? HIV (human immunodeficiency virus infection) ([facility]) Dx 2017 ??? Methamphetamine use disorder, moderate, in early remission ([facility]) ??? Neuropathy (CMS/HCC) ??? 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 Review of Systems Review of Systems All other systems reviewed and are negative. Physical Exam ED Triage Vitals Temp Pulse Resp BP SpO2 06/02/2491906/02/2491906/02/2491906/02/2491906/02/24921 37.1 ??C (98.8 ??F) (!) 48 14 154/66 98 % Temp src Heart Rate Source Patient Position BP Location FiO2 (%) 06/02/24919 -- 06/02/2491906/02/24919 -- Oral Sitting Left arm Height Height Method Weight Weight Method 06/02/2491906/02/2491906/02/2491906/02/24919 1.829 m (6' 0.01 ) Stated 81.6 kg (179 lb 14.3 oz) Stated Physical Exam Vitals and nursing note reviewed. Constitutional: Appearance: Normal appearance. Comments: Drowsy, but responds to verbal stimuli HENT: Head: Normocephalic. Right Ear: External ear normal. Left Ear: External ear normal. Nose: Nose normal. No congestion or rhinorrhea. Mouth/Throat: Mouth: Mucous membranes are moist. Pharynx: Oropharynx is clear. No oropharyngeal exudate or posterior oropharyngeal erythema. Eyes: General: Right eye: No discharge. Left eye: No discharge. Extraocular Movements: Extraocular movements intact. Conjunctiva/sclera: Conjunctivae normal. Pupils: Pupils are equal, round, and reactive to light. Comments: No nystagmus Cardiovascular: Rate and Rhythm: Regular rhythm. Bradycardia present. Pulses: Normal pulses. Heart sounds: Normal heart sounds. No murmur heard. No friction rub. No gallop. Pulmonary: Effort: Pulmonary effort is normal. No respiratory distress. Breath sounds: No stridor. No wheezing, rhonchi or rales. Chest: Chest wall: No tenderness. Abdominal: General: Abdomen is flat. Bowel sounds are normal. There is no distension. Tenderness: There is no abdominal tenderness. Musculoskeletal: General: No swelling. Normal range of motion. Cervical back: Normal range of motion. Neurological: General: No focal deficit present. Mental Status: He is alert and oriented to person, place, and time. Cranial Nerves: No cranial nerve deficit. Sensory: No sensory deficit. Comments: Mild global weakness. No hyperreflexia or clonus MDM Medical Decision Making 28-year-old male history bipolar disease, prior suicide attempts, HIV with reported poor complianceon Biktarvy presenting with suicidal attempt of ingestion of approximately 272 mg Xanax pills. Differential and plan: Patient's history and examination and pattern of signs and symptoms are consistent with benzodiazepine overdose without other obvious toxidrome. At this time he has appropriate vital signs but we will need to be monitored closely on end-tidal CO2. We will gather a broad laboratory workup to ensure the patient has had no other coingestion including salicylate, Tylenol levels. EKG shows sinus bradycardia with early repolarization. We will obtain troponins, CMP, venous blood gas, drug screen, chest x-ray. Anticipate discussion with Toxicology for potential flumazenil although the patient reportedly has a history of seizures. On chart review I do not see an obvious discussion regarding history of seizures other than alcohol withdrawal seizures in the past. Amount and/or Complexity of Data Reviewed Labs: ordered. Radiology: ordered. ECG/medicine tests: ordered. ED Course as of 06/02/242011 Time: 06/02 927 Value: Pulse(!): 48 Comment: Patient is drowsy and has a pattern consistent with benzodiazepine overdose. Will place the patient on a monitor with end-tidal CO2 By: Calvin Sainz MD Time: 06/02 928 Comment: . By: Calvin Sainz MD Time: 06/02 1003 Comment: Moving patient over to [facility] for closer monitoring and potential airway intervention - has acute respiratory acidosis and declining mental status and low ETCO2 By: Calvin Sainz MD Time: 06/02 1024 Comment: Toxic bedside, recommended repeat EKG By: Maris Kidd MD Time: 06/02 9346 Comment: Toxic like a repeat lactate and VBG at 3 hr larry from arrival By: Maris Kidd MD Time: 06/02 1314 Comment: POC GLucose 45, will give d10 bolus. By: Maris Kidd MD Time: 06/02 1314 Comment: Pt moving back to B pod By: Maris Kidd MD Time: 06/02 1315 Value: Glucose, POC(!!): 45 Comment: (Reviewed) By: Maris Kidd MD Time: 06/02 9261 Comment: Patient has returned back to the [facility]. He is now more alert and oriented.His heart rate has improved. His blood pressure is within normal limits. He is complaining of some diarrhea and generalized fatigue but otherwise has no acute complaints. Pending reassessment by Toxicology. Some of his labs have also improved. We will continue to recheck a sugar, give dextrose containing fluids and oral fluids now that he is awake and alert enough. We will continue to reassess blood glucose. When patient has been medically cleared he will require psychiatry consultation. By: Calvin Sainz MD Time: 06/02 1450 Comment: Signout: pending psych consult after sobriety. Pt took 27. 2mg xanax pills this morning. He is doing better and PO challenge now. Hx HIV non compliant with biktarvy. By: Pooja Molina NP Time: 06/02 1524 Comment: Per tox, pt is almost cleared. He is eating/drinking and mental status is improved. Give it a little more time and if pt ambulating, can be cleared. Would like a repeat vbg. By: Pooja Molina NP Time: 06/02 1636 Comment: Per tox, VBG has not really improved, even though it's showing the respiratory component has resolved. Can you check ketones, repeat lactate, and also get a serum Osm? We think this now is probably more metabolic acidosis, more likely due to some non-toxic medical cause (such as diarrhea,etc., although he's immunocompromised and may be more likely to have an infection), but we want to rule out any other tox causes with those labs. By: Pooja Molina NP Time: 06/02 1705 Comment: Pt has a lot of diarrhea. He is agreeable to rectal tube By: Pooja Molina NP Time: 06/02 2012 Comment: Per tox, Just looked over the labs, no osmol gap which is reassuring against a tox etiology. Nothing further from our standpoint tonight, just rec continued supportive care and we will follow up in the AM! By: Pooja Molina, JESE Final diagnoses: None Calvin Sainz MD 06/04/24804 LE HRMS CONSULTANT * Najma Linn RN - 06/02/2024 9:14 AM CST Pt BIBEMS from [facility] after suicide attempt. Per EMS, at 0830 27 2mg xanax as a suicide attempt. Last used meth 5 days ago. Per EMS, pt was ju[place]jose in low 50s. Pt arrived covered in feces. Pt is A&Ox4, slurring his words, and is restless. Pt states he stopped taking Biktarvy 1 month ago and Abilify 5 days ago (and the rest of his ddailymeds) b/c he was done trying. Pt endorses auditory command hallucinations (denies VH). Denies HI. PmHx: HIV, 3 prior suicide attempts with pills, borderline personality disorder, PTSD, syphilis LE HRMS CONSULTANT * Deysi Damico RN - 06/02/2024 9:10 AM CST Bed: ED1-09 Expected date: Expected time: Means of arrival: Comments: [facility] Intake Deysi Damico RN 06/02/24909 LE HRMS CONSULTANT documented in this encounter Miscellaneous Notes * Provider Query - Caitlyn Salinas MD - 06/07/2024 1:03 PM ORACLE HRMS CONSULTANT Specify a diagnosis that reflects the patient???s nutritional status, and document in the medical record and on the form below. _x_ Severe Malnutrition ___ Malnutrition other, specify below ___ Other explanation of clinical findings, specify below Additional Provider Response: Clinical Indicators/Treatments: 28 y.o. male with PMHx HIV (previously on HAART on Biktarvy, last dose reportedly 1 month ago), PTSD, amphetamine use who presents after overdose of benzodiazepines. 06/05 RD: Nutrition Status: Patient meets criteria for severe chronic malnutrition, reference AAIM ([facility]) guidelines. Present on Admission: Yes AAIM ([facility]) MALNUTRITION ASSESSMENT: Date of completion: 06/05/2024 [facility]/AND Malnutrition Screening: Chronic illness or injury severe Energy Intake: < 75% energy intake compared to estimated energy needs > (or equal to) 1 month Weight Loss: > 7.5% in 3 months Subcutaneous Fat Loss Severity: Clinical criteria not met Muscle Mass Loss Severity: Clinical criteria not met Patient Meets Criteria for Severe Malnutrition: Yes Treatment: Monitor labs Monitor I&Os RD consult Order Ensure Plus HP chocolate TID Recommend regular weights Continue adequate PO intake Monitor stool patterns References: Adult Malnutrition Screening Criteria Criteria for [...] fat ? muscle ? fluid/edema 6: Reduced Checkroom Chief Strength n/a Measurably reduced per device standards [...] become part of the patient???s medical record. Thank you, Lizbeth Paulino RN,BSN Clinical Reiki Practitioner [phone] [email or web address] LE HRMS CONSULTANT * Plan of Care - Deon Simmons RN - 06/07/2024 1:03 PM CST Was contacted to provide transportation for patient. Trip # [id number]. When patient was notified that it could take up to 3 hours for ride to arrive, he stated he was leaving, and left the building. Trip cancelled. For evening case management needs please contact the mobility architect manager at [phone].For weekend and holiday needs please call [phone]. LE HRMS CONSULTANT * Significant Event - Kay Granados MD PhD - 06/07/2024 12:25 PM ORACLE HRMS CONSULTANT General Team 1 Infectious Disease Brief Note Chart reviewed. Patient not seen or examined. Patient discussed with Dr. Gaspar. Afeb since last fever 06/05 stable Refusing labs HIV 20k (prior 4k 03/2024), CD4 169 10% (similar to 03/2024) Hep B and C neg, stool cx neg, CMV 36, RPR 1:32 (stable) LP 06/06 nuc 0, RBC 0, gluc 66, prot 28; CSF crypto neg, EV neg, HSV neg, VZV neg Received notification by primary team that the patient is requesting to leave in order to get a bedat a halfway. Per primary team, his symptoms are much improved today. Discussed plan of care with primary team. Recommendations: - Would mortgage loan counselor patient on symptoms to watch out for with strict return precautions - Would mortgage loan counselor patient on adherence to ART and Bactrim - Patient should follow up with his outpatient HIV provider Kay Granados MD PhD PGY-4 Infectious Disease Fellow 06/07/24 LE HRMS CONSULTANT * Plan of Care - Mor Walker RN - 06/06/2024 7:01 PM ORACLE HRMS CONSULTANT Problem: Suicide Risk Goal: Ability to make informed decisions regarding treatment will improve Outcome: Progressing Goal: Decreased thoughts of self harm Outcome: Progressing Problem: Discharge Planning Goal: Understanding discharge needs will improve Outcome: Progressing Problem: Lack of Knowledge Goal: Ability to develop a pain control plan will improve Outcome: Progressing Problem: Medication Goal: Satisfaction with pain management medication regimen will improve Outcome: Progressing Problem: Sensory Goal: Ability to identify factors that increase pain levels will improve while working to decrease the patient's pain levels Outcome: Progressing Problem: Coping Goal: Ability to cope will improve Outcome: Progressing Problem: Health Behavior Goal: Identification of resources available to assist in meeting health care needs will improve Outcome: Progressing Problem: Fall Risk Goal: Ability to state ways to decrease the risk of falls will improve Outcome: Progressing Goal: Will remain free from falls Outcome: Progressing Goal: Will remain free from injury from falls Outcome: Progressing Problem: Neurosensory Goal: Absence of seizures Outcome: Progressing Problem: Respiratory Goal: Achieves optimal ventilation and oxygenation Outcome: Progressing Problem: Cardiovascular Goal: Maintains optimal cardiac output and hemodynamic stability Outcome: Progressing Problem: Skin/Tissue Integrity Goal: Skin integrity remains intact Outcome: Progressing Problem: Musculoskeletal Goal: Return mobility to safest level of function Outcome: Progressing Problem: Gastrointestinal Goal: Minimal or absence of nausea and vomiting Outcome: Progressing Goal: Maintains or returns to baseline bowel function Outcome: Progressing Goal: Maintains adequate nutritional intake Outcome: Progressing Problem: Genitourinary Goal: Absence of urinary retention Outcome: Progressing Problem: Infection Goal: Absence of infection during hospitalization Outcome: Progressing Problem: Metabolic/Fluid and Electrolytes Goal: Electrolytes maintained within normal limits Outcome: Progressing Problem: Hematologic Goal: Maintains hematologic stability Outcome: Progressing Goals: Clinical Goals for the Shift: VSS, free from falls/ injury, compliant with care Summary: Pt vitals remain sable. Pt remains free from falls/ injury. Pt refused lab draws but was otherwise compliant with car. LE HRMS CONSULTANT * Plan of Care - Tata Moy RN - 06/06/2024 3:51 PM CST CM Progression of Care Update Per Medical Chart/Rounds/IDR: Patient is not medically ready to discharge from the hospital ADD: 06/09 Discharge Barriers: housing Education Needs Identified (plan): fever, continue work up, SW following for housing F/U Appointments: will schedule prior to discharge Patient's Identified Problem/Goal Problem:?Ensure acute medical needs are met and that patient has a safe discharge plan. Goal:?Secure a discharge plan that patient/family are agreeable with?and ensure patient has continuum of care. Patient and/or family are agreeable with plan. manager front will continue to follow and assist with discharge planning as needed. If any further discharge needs arise, please contact the covering manager of case. LE HRMS CONSULTANT * Plan of Care - Tarsha Romano MSW - 06/06/2024 1:55 PM CST SW attempting to find safe housing for pt at discharge. SW called [facility] and spoke to fur dressing supervisor,Haja ([phone]). It was reported that pt was previously followed by Nolan Brito ([phone]). [facility]TAR called and left voicemail for Michelle to move forward with referral to [facility] emergency housing. [facility] fur dressing supervisor reports that spots are limited but that there is potential for 30-45 days of housing available for pt. [facility] fur dressing supervisor reports that Hardy Clari would be case supervisor and be able to coordinatept to discharge to emergency housing facility. SW to remain available. AIDE Stover, ASSEMBLER MECHANICAL ORDNANCE LE HRMS CONSULTANT * Consults, Subsequent - Kay Granados MD PhD - 06/06/2024 12:45 PM ORACLE HRMS CONSULTANT Infectious Disease Subsequent Consult Note Infectious Disease Team: General ID Team 1 Contact Information: General ID Team Subjective Interval history: - Afeb since AM 06/05 - Refused nightly labs - State he was still willing to get the LP and for labs today - Stated his headache is present but improving, still has blurry vision, still has neck pain but improving - Again reported 4 bloody bowel movements, although there were not charted See below A/P for Objective section exam, labs, imaging. Assessment/Plan 28 y.o. male with poorly controlled HIV previously on Biktarvy who presented 06/02 with possible intentional benzodiazapine overdose (UDS negative for benzos) and suicidal ideation. He has been off his ART for at least a month, likely longer. He follows at [facility] (Dr. Sullivan). 06/02 CD4 169 10%, VL 20k, increased from prior VL 4k in 03/2024. ID was consulted for recommendations regarding his HIV management and a concern for blood in stool. He stated he had approximately 1 week of bloody diarrhea, abdominal pain, vomiting, subjective fevers. Differential included Shigella, Salmonella, E coli, Campylobacter versus other causes of diarrhea including Cryptosporidium, Giardia, CMV. He denied any symptoms of rectal pain that could be concerning for proctocolitis. Patient has a history of possible neurosyphilis 09/2023 with RRP 1:1024. LP done at that time had 10nucleated cells, VDRL negative. He was treated with 14 days of IV penicillin while inpatient. Admission 04/08-04/10 RPR titer was 1:64, which was chronically and stably elevated suggesting of a treatedinfection. However, he was re-tested 04/14 with titer subsequently increasing to 1:512. No clear joel rd of treatment for this elevated titer. Patient stated he did have a recent sexual partner who told him he was positive for syphilis. Repeat RPR this admission 1:32. Likely prior 1:512 was variability in the RPR assay reading as opposed to reinfection or could have been a response to repeat treatment (if provided). On initial interview, patient reported headache, blurry vision, neck stiffness, although he had appropriate mentation, was non-toxic appearing, afebrile, no leukocytosis, and with some concern for embellishment of symptoms and attention seeking behavior. Given immunocompromised state and symptoms, recommended work- up, including LP. However, AM 06/05 he developed a high fever, so antibiotics (acyclovir, PARTY PLAN SALES DIRECTOR, vancomycin) were started. His risk for legionella was felt to be low. He denied any exposures to animals or unusual foods. Has been living in [place] [address]. Work-up to date: - HCV neg, HBV neg, non-immune - RPR 1:32 - CMV IgG positive, IgM negative, titer 36 - Crypto serum antigen negative - 06/02 stool culture negative for pathogens, Shiga toxin negative - 06/04 Blood culture NGTD - CT head with volume loss greater than for age (stable from prior), no lesions or signs of elevated ICP - LP nuc 0, RBC 0, gluc 66, prot 28; CSF crypto neg, EV neg Recommendations: - Ok to stop vancomycin and ceftriaxone given completely bland appearance of CSF. He did get 2 daysof antibiotics prior to LP (although 2nd doses just 1 hour prior to LP). Would expect CSF to at least have elevated protein or some cells with concern for meningitis. - If VZV and HSV CSF PCR negative, stop acyclovir. Very low likelihood that these are positive. - No current additional indications for antibiotics. Would closely monitor for recurrent fever or other localizing symptoms. - CMV titer very low and not concerning. Can have active CMV colitis with low titer, although it isnot clear that he is continuing to have diarrhea. - Ok to start Biktarvy. - Please obtain the infection studies previously recommended if possible. - CBC and CMP should be monitored at least weekly with this treatment. Vancomycin troughs should bemonitored closely on this treatment. - General ID will continue to follow. Please reach out with questions or concerns to the number at the top of this note or message the ID fellow signed in to the chart. After normal business hours, please call the education administrative assistant ID fellow at [phone].General ID Team 1 CONDENSER WINDER Beldenise Mullins [phone] Today, I am treating the patient for HIV, possible meningitis, possible dysentery which can cause sepsis, worsening neurological symptoms in the short- term future in the absence of appropriate treatment, as described in the note. and Estimated Creatinine Clearance: 94.4 mL/min (by Cockcroft-Gault based on SCr of 1.1 mg/dL). - reviewed; antibiotics recommended above are dosed accordingly. Kay Granados MD PhD PGY-4 Infectious Disease Fellow 06/06/24 Part of this note was generated using dictation. Some words and phrases may have been substituted for similar sounding words and phrases and may have escaped proofreading. If there are any questions or concerns, please contact Dr. Granados for clarification or correction. Objective Vitals: 06/06/24 1053 BP: 115/77 Pulse: 74 Resp: 18 Temp: 36.6 ??C (97.8 ??F) SpO2: 100% I/O last 2 completed shifts: In: - Out: 575 [Urine:575] Physical Exam: Constitutional: No distress. HENT: Normocephalic, atraumatic. Bilateral temporal wasting. Dry appearing lips. Eyes: Conjunctivae and EOM are normal. Neck: Pain with active anterior flexion. Cardiovascular: Warm and well perfused. Pulmonary/Chest: Effort normal. No respiratory distress. On room air. Musculoskeletal: Normal bulk and tone. No deformities. Neurological: Alert and oriented to person, place, and time. Face symmetric. No dysarthria. Moving all extremities spontaneously. Skin: Skin is warm, dry, and intact. No rash noted. No erythema. Psychiatric: Calm, cooperative. Photos related to exam findings, if applicable: Active Lines/Ports/Devices: Peripheral IV 06/02/24 20 G Anterior;Left Hand (Active) Number of days: 3 Current Facility-Administered Medications Ordered in Epic Medication Dose Route Frequency Provider Last Rate Last Admin acyclovir (ZOVIRAX) 700 mg in sodium chloride 0.9% 100 mL IVPB 10 mg/kg intravenous Q8H [facility] Jeremy Luis MD 114 mL/hr at 06/05/24 1520 700 mg at 06/05/24 1520 al & mag hydroxide simethicone-lidocaine (GI COCKTAIL WITHOUT ANTISPASMODIC) suspension 40 mL 40 mL oral Once Dandre Hernandez MD Carrier Fluids for Secondary Infusion - 0.9% Sodium Chloride 30 mL intravenous PRN Geo Chaudhry MD cefTRIAXone (ROCEPHIN) 2,000 mg/20 mL in sterile water (premix) 2,000 mg 2,000 mg intravenous Q12H [facility] Jeremy Luis MD 2,000 mg at 06/06/24 1100 loperamide (IMODIUM) capsule 2 mg 2 mg oral BID PRN Jeremy Luis MD 2 mg at 06/05/24 210 ramelteon (ROZEREM) tablet 8 mg 8 mg oral Nightly PRN Geo Chaudhry MD 8 mg at 06/05/24 210 sodium chloride 0.9% flush 0.5-20 mL 0.5-20 mL intra-catheter Q8H [facility] (ALT) Geo Chaudhry MD 10 mL at 06/05/24 2108 sodium chloride 0.9% flush 0.5-20 mL 0.5-20 mL intra-catheter PRN Geo Chaudhry MD sulfamethoxazole-trimethoprim (BACTRIM DS) 800-160 mg per tablet 160 mg of trimethoprim 160 mg of trimethoprim oral Once per day on Sunday Caitlyn Salinas MD 160 mg of trimethoprim at 06/06/24 1102 vancomycin 1,000 mg/200 mL in dextrose 5% (premix) 1,000 mg 1,000 mg intravenous Q12H Jeremy Luis MD 1,000 mg at 06/06/24 1102 No current [facility]-ordered outpatient medications on file. Anti-infectives (From admission, onward) Start Dose/Rate Route Frequency Ordered Stop 06/05/24 1900 vancomycin 1,000 mg/200 mL in dextrose 5% (premix) 1,000 mg 1,000 mg over 60 Minutes intravenous Every 12 hours 06/05/24 1525 06/05/24 0900 cefTRIAXone (ROCEPHIN) 2,000 mg/20 mL in sterile water (premix) 2,000 mg 2,000 mg 240 mL/hr over 5 Minutes intravenous Every 12 hours scheduled 06/05/24 0822 06/05/24 0900 acyclovir (ZOVIRAX) 700 mg in sodium chloride 0.9% 100 mL IVPB 10 mg/kg ?? 68 kg 114 mL/hr over 60 Minutes intravenous Every 8 hours scheduled 06/05/24 0822 06/04/24 1630 sulfamethoxazole-trimethoprim (BACTRIM DS) 800-160 mg per tablet 160 mg of trimethoprim 160 mg of trimethoprim oral Once per day on Sunday06/04/24 1549 Lab/Radiology/Diagnostic Review: I reviewed the following laboratory and imaging result(s). Micro: Lab Results Component Value Date MICROBIOLOGY Preliminary Report: No growth to date. 06/04/2024 MICROBIOLOGY 06/02/2024 Final Report: No growth of enteric bacterial pathogens MICROBIOLOGY Final Report: No growth of fungus 10/12/2023 MICROBIOLOGY Final Report: No growth 10/12/2023 MICROBIOLOGY 08/03/2017 Final Report: Negative for: Chlamydia trachomatis rRNA Negative for: Neisseria gonorrhoeae rRNA MICROBIOLOGY (.) 08/02/2017 Final Report: Few Mixed upper respiratory tract microorganisms. MICROBIOLOGY Final Report: No growth of fungus 08/02/2017 MICROBIOLOGY Final Report: No growth of acid-fast bacilli 08/02/2017 MICROBIOLOGY 08/01/2017 Final Report: Insignificant growth based on current clinical standards. MICROBIOLOGY 08/01/2017 Direct Antigen Testing - Final: Negative for: Histoplasma antigen Histoplasma Antigen Result: None detected. * * * * * Result Interpretation: Reference interval: None Detected Results reported as ng/mL in 0.4 - 19 ng/mL Results above the limit of detection but below 0.4 ng/mL are reported as 'Positive, Below the Limitof Quantification' Results above 19 ng/mL are reported as 'Positive, Above the Limit of Quantification' * * * * * * * * * * * * * * * * * * * * This test was developed and its performance characteristics determined by [employer]. Ithas not been cleared or approved by the FDA; however, FDA clearance or approval is not currently required for clinical use. The results are not intended to be used as the sole means for clinical diagnosis or patient management decisions. Urinalysis: Resulted in the Past 12 Months 06/02/24 1028 COLORU Straw CLARITYU Clear SPECGRAVU 1.037* PHURINE 6.0 PROTURQL 1+* GLUCOSEUR Negative KETONESU Negative BLOODUR Negative NITRITEU Negative LEUKESTUR Negative Hematology/Chemistry: Na: 136 Cl: 104 BUN: 11 /Gluc: 94 K: 3.7 CO2: 25 Cr: 1.10 \Mg: - AST: 21 ALT: 16 Alk Phos: 73 Ca: 8.8 TP: - Alb: 3.4 TBili: 0.2, DBili: - \ Hgb: 12.4 / WBC: 6.6 Plt: 283 / MCV: 79.8 \ INR: - (Labs above are the most recent result obtained in the last 24 hours. For additional labs/trends, see Epic.) Inflammatory Markers: Resulted in the Past 12 Months 06/04/24203510/10/23 1127 SEDRATE 22* 12 CRP 9.8 2.1 Screening Results RPR: Lab Results Component Value Date LABRPR Reactive (A) 06/04/2024 LABRPR 1:32 (A) 06/04/2024 GC: Lab Results Component Value Date CTRACHOMATIS Not Detected 05/10/2024 NGONORRHOEAE Not Detected 05/10/2024 Hepatitis Serologies: Lab Results Component Value Date HEPAIGM Nonreactive 10/11/2023 HEPBSAG Nonreactive 06/04/2024 HEPBSAB Nonreactive 04/08/2024 HEPBCAB Nonreactive 06/04/2024 HEPCAB Nonreactive 06/04/2024 Virologic Testing: HIV Screen: Lab Results Component Value Date [id number] Reactive (A) 08/01/2017 CD4: Lab Results Component Value Date CD4ABS 169 (L) 06/02/2024 CD4PCT 10 (L) 06/02/2024 Common Virologic Results: Lab Results Component Value Date HJS6DCD Detected (A) 04/28/2024 YPV1WOI 20,000 04/28/2024 AZN9NAI 4.30 04/28/2024 CD4ABS 169 (L) 06/02/2024 CD4PCT 10 (L) 06/02/2024 NUCLEOSRT L210W,T215S 04/08/2024 NONNUCRTMUT None 04/08/2024 PROTEASEMUT None 04/08/2024 INTEGRASEMUT None 04/08/2024 TOXOIGG Negative 08/02/2017 Diagnostics: EKG:No results found for: VR , AR , PRIMSEC , QRSIMSEC , QTIMSEC , QT , PA , RA , TA , DIAG Echo: Imaging: XR Chest 1 Vw Portable Result Date: 06/02/2024 Comparison is made to prior study of 04/28/2024. In the interval, no change. The lungs are clear. Specifically, no pulmonary edema or pneumonia. No pleural effusion or pneumothorax. Heart size and mediastinal contour are normal. Electronically signed by: Tanner Lees M.D. XR Ankle Right 3 or More Views Result Date: 05/31/2024 IMPRESSION: No acute osseous abnormality. DICTATION LOCATION: [address] XR Ankle Left 3 or More Views Result Date: 05/10/2024 No acute fracture Osseus alignment appears normal on this nonweightbearing exam. Dictated by: Yee Oglesby M.D. The radiology attending physician has personally reviewed this study, and had reviewed and/or edited this written report and agrees with it. Electronically signed by: Brandy Graves M.D. Assessment/Plan is now at the top of the note. Cosigned by Piedad Gaspar MD at 06/06/2024 7:58 PM ORACLE HRMS CONSULTANT LE HRMS CONSULTANT LE HRMS CONSULTANT LE HRMS CONSULTANT LE HRMS CONSULTANT Associated attestation - Piedad Gaspar MD - 06/06/2024 7:58 PM ORACLE HRMS CONSULTANT I have seen and examined the patient on 06/06/24. I agree with the findings and plan of care as documented in the resident's/fellow's note.. * Pre-Procedure Note - Tab Steve MD - 06/06/2024 11:24 AM ORACLE HRMS CONSULTANT Planned Procedure: lumbar puncture Indication for Procedure: neck stiffness, fever Prescribed use of blood thinner: No Prescribed use of antiplatelet agent: No History of thrombocytopenia or bleeding disorder: No Medications: Scheduled: acyclovir, 10 mg/kg, intravenous, Q8H [facility] al & mag hydroxide simethicone-lidocaine, 40 mL, oral, Once cefTRIAXone, 2,000 mg, intravenous, Q12H [facility] sodium chloride 0.9%, 0.5-20 mL, intra-catheter, Q8H [facility] (ALT) sulfamethoxazole-trimethoprim, 160 mg of trimethoprim, oral, Once per day on Sunday vancomycin, 1,000 mg, intravenous, Q12H Infusions: PRN: sodium chloride 0.9% loperamide ramelteon sodium chloride 0.9% No Known Allergies Vitals: 24hr Min/Max: Temp Min: 36.5 ??C (97.7 ??F) Max: 36.6 ??C (97.8 ??F) Pulse Min: 74 Max: 94 BP Min: 115/77 Max: 134/65 Resp Min: 18 Max: 18 SpO2 Min: 96 % Max: 100 % Most Recent: Vitals: 06/06/24 1053 BP: 115/77 Pulse: 74 Resp: 18 Temp: 36.6 ??C (97.8 ??F) SpO2: 100% Lab Results Component Value Date WBC 6.6 06/04/2024 HGB 12.4 (L) 06/04/2024 HCT 39.1 06/04/2024 MCV 79.8 (L) 06/04/2024 LABPLAT 283 06/04/2024 Lab Results Component Value Date CREATININE 1.10 06/04/2024 Lab Results Component Value Date INR 1.04 06/02/2024 No results found for: PTT Immediately prior to the procedure, a timeout was performed: Patient properly identified by Name/: Yes Procedure participants agree on procedure to be performed: Yes Site/side marked and visible (if applicable): Yes Allergies confirmed: Yes Safe to Proceed with procedure confirmed: Yes Other concerns or considerations: No I have personally performed a brief history and physical exam. I have confirmed that there are no contraindications to the above procedure and it is safe to proceed as planned. Cosigned by Geo Palacios MD at 06/06/2024 4:37 PM ORACLE HRMS CONSULTANT LE HRMS CONSULTANT LE HRMS CONSULTANT * Plan of [place] - Mor Walker RN - 06/05/2024 6:53 PM ORACLE HRMS CONSULTANT Problem: Suicide Risk Goal: Ability to make informed decisions regarding treatment will improve Outcome: Progressing Goal: Decreased thoughts of self harm Outcome: Progressing Problem: Discharge Planning Goal: Understanding discharge needs will improve Outcome: Progressing Problem: Lack of Knowledge Goal: Ability to develop a pain control plan will improve Outcome: Progressing Problem: Medication Goal: Satisfaction with pain management medication regimen will improve Outcome: Progressing Problem: Sensory Goal: Ability to identify factors that increase pain levels will improve while working to decrease the patient's pain levels Outcome: Progressing Problem: Coping Goal: Ability to cope will improve Outcome: Progressing Problem: Health Behavior Goal: Identification of resources available to assist in meeting health care needs will improve Outcome: Progressing Problem: Fall Risk Goal: Ability to state ways to decrease the risk of falls will improve Outcome: Progressing Goal: Will remain free from falls Outcome: Progressing Goal: Will remain free from injury from falls Outcome: Progressing Problem: Neurosensory Goal: Absence of seizures Outcome: Progressing Problem: Respiratory Goal: Achieves optimal ventilation and oxygenation Outcome: Progressing Problem: Cardiovascular Goal: Maintains optimal cardiac output and hemodynamic stability Outcome: Progressing Problem: Skin/Tissue Integrity Goal: Skin integrity remains intact Outcome: Progressing Problem: Musculoskeletal Goal: Return mobility to safest level of function Outcome: Progressing Problem: Gastrointestinal Goal: Minimal or absence of nausea and vomiting Outcome: Progressing Goal: Maintains or returns to baseline bowel function Outcome: Progressing Goal: Maintains adequate nutritional intake Outcome: Progressing Problem: Genitourinary Goal: Absence of urinary retention Outcome: Progressing Problem: Infection Goal: Absence of infection during hospitalization Outcome: Progressing Problem: Metabolic/Fluid and Electrolytes Goal: Electrolytes maintained within normal limits Outcome: Progressing Problem: Hematologic Goal: Maintains hematologic stability Outcome: Progressing Goals: Clinical Goals for the Shift: VSS, free from falls/ injury, compliant with care Summary: Pt vitals remain stable. Pt remains free from falls/ injury. Pt refused labs but was otherwise compliant with care. LE HRMS CONSULTANT * Consults, Subsequent - Kay Granados MD PhD - 06/05/2024 5:21 PM ORACLE HRMS CONSULTANT Infectious Disease Subsequent Consult Note Infectious Disease Team: General ID Team 1 Contact Information: General ID Team Subjective Interval history: - Febrile to 102.8 this AM - Started on meningitis coverage acyclovir, PARTY PLAN SALES DIRECTOR, [place] - Felling hot today. Continues to report headache, neck pain, back pain, blurry vision. Reported continue abdominal pain and 4 stools yesterday with blood in them, although this was not confirmed by sitter. - Denied SOB, cough, muscle aches, joint pain, rash, rectal pain, although some differences in symptoms reported between different interviewers. - He did allow labs - HCV neg, HBV neg, non-immune - RPR 1:32 - CMV IgG positive, IgM negative - Crypto serum antigen negative - 06/04 Blood culture NGTD - Seen by Optho, no concern for ocular syphilis, but possible glaucoma See below A/P for Objective section exam, labs, imaging. Assessment/Plan 28 y.o. male with poorly controlled HIV previously on Biktarvy who presented 06/02 with possible benzodiazapine overdose (UDS negative for benzos) and suicidal ideation. He has been off his ART for at least a month, likely longer. He follows at [facility] (Dr. Sullivan). 06/02 CD4 169 10%, VL 20k, increased from prior VL 4k in 03/2024. ID was consulted for recommendations regarding his HIV management and a concern for blood in stool. He stated he has had approximately 1 week of bloody diarrhea, abdominal pain, vomiting, subjective fevers. Differential included Shigella, Salmonella, E coli, Campylobacter versus other causes of diarrhea including Cryptosporidium, Giardia, CMV. He denied any symptoms of rectal pain consistent with proctocolitis. Patient has a history of possible neurosyphilis 09/2023 with RRP 1:1024 (LP done with 10 nucleated cells, VDRL negative) previously treated with 14 days of IV penicillin during inpatient admission. Last admission 04/08-04/10 RPR titer was 1:64, similar to prior testing suggested of a treated infection. However, he was re-tested 04/14 with titer subsequently increasing to 1:512, with no clear record of re-treatment with penicillin. Patient stated he did have a recent sexual partner who told him he was positive for syphilis. Repeat RPR this admission 1:32. Likely prior 1:512 was variability in the RPR assay reading as opposed to reinfection. On initial interview, patient reported headache, blurry vision, neck stiffness, although he had appropriate mentation, was non-toxic appearing, afebrile, no leukocytosis, and with some concern for embellishment of symptoms and attention seeking behavior, however would take his concerns seriously atthis time and monitor closely. However, AM 06/05 he developed a high fever, so antibiotics (acyclovir, PARTY PLAN SALES DIRECTOR, vancomycin) started and LP ordered. He denied any exposures to animals or unusual foods. Has been living in [place] [address]. Work-up to date: - HCV neg, HBV neg, non-immune - RPR 1:32 - CMV IgG positive, IgM negative - Crypto serum antigen negative - 06/04 Blood culture NGTD Recommendations: - Continue acyclovir 10 mg/kg, ceftriaxone 2G Q12H, vancomycin 1000 mg Q12H - Will follow up results of LP: cell count, differential, protein, glucose, aerobic and mycology culture, VZV, HSV, EV, crypto CSF, VDRL - In immunocompromised patients, recommend head CT before LP - Obtain AFB blood cultures, histo antibodies, blasto antibodies - CBC and CMP should be monitored at least weekly with this treatment. Vancomycin troughs should bemonitored closely on this treatment. - General ID will continue to follow. Please reach out with questions or concerns to the number at the top of this note or message the ID fellow signed in to the chart. After normal business hours, please call the education administrative assistant ID fellow at [phone].General ID Team 1 CONDENSER WINDER Bel Mullins [phone] Today, I am treating the patient for HIV, possible meningitis, possible dysentery which can cause sepsis, worsening neurological symptoms in the short- term future in the absence of appropriate treatment, as described in the note. and Estimated Creatinine Clearance: 94.4 mL/min (by Cockcroft-Gault based on SCr of 1.1 mg/dL). - reviewed; antibiotics recommended above are dosed accordingly. Kay Granados MD PhD PGY-4 Infectious Disease Fellow 06/05/24 Part of this note was generated using dictation. Some words and phrases may have been substituted for similar sounding words and phrases and may have escaped proofreading. If there are any questions or concerns, please contact Dr. Granados for clarification or correction. Objective Vitals: 06/05/24 1019 BP: 107/45 Pulse: Resp: Temp: SpO2: I/O last 2 completed shifts: In: - Out: 250 [Urine:250] Physical Exam: Constitutional: Mild distress. Very warm to touch. HENT: Normocephalic, atraumatic. No thrush. Eyes: Conjunctivae and EOM are normal. Neck: Pain with active anterior flexion. Cardiovascular: Normal rate, regular rhythm, normal heart sounds. No murmurs, rubs, gallops. No lower extremity edema. Pulmonary/Chest: Effort normal. No respiratory distress. CTABL. On room air. Abdominal: Mildly tender to palpation. Musculoskeletal: Normal bulk and tone. No deformities. Neurological: Alert and oriented to person, place, and time. Face symmetric. No dysarthria. Moving all extremities spontaneously. Skin: Skin is warm, dry, and intact. No rash noted. No erythema. Psychiatric: Calm, cooperative. Photos related to exam findings, if applicable: Active Lines/Ports/Devices: Peripheral IV 06/02/24 20 G Anterior;Left Hand (Active) Number of days: 3 Current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 Progressing Problem: Fall Risk Goal: Will remain free from falls Outcome: Progressing Goal: Will remain free from injury from falls Outcome: Progressing Problem: Neurosensory Goal: Absence of seizures Outcome: Progressing Problem: Respiratory Goal: Achieves optimal ventilation and oxygenation Outcome: Progressing Problem: Skin/Tissue Integrity Goal: Skin integrity remains intact Outcome: Progressing Problem: Gastrointestinal Goal: Minimal or absence of nausea and vomiting Outcome: Progressing Problem: Genitourinary Goal: Absence of urinary retention Outcome: Progressing Goals: Clinical Goals for the Shift: VSS, continue 1:1 sitter, compliance with nursing care, safe environment noted Summary: Monitoring vitals, labs. 1:1 sitter continued, no unsafe behaviors noted. Pt temperature 38.3 this AM; MD notified. Pt to remain free of falls. Will promote rest and comfort. LE HRMS CONSULTANT * Plan of Care - Les Golden RN - 06/04/2024 3:46 PM CST Problem: Suicide Risk Goal: Ability to make informed decisions regarding treatment will improve Outcome: Progressing Goal: Decreased thoughts of self harm Outcome: Progressing Problem: Discharge Planning Goal: Understanding discharge needs will improve Outcome: Progressing Problem: Lack of Knowledge Goal: Ability to develop a pain control plan will improve Outcome: Progressing Problem: Medication Goal: Satisfaction with pain management medication regimen will improve Outcome: Progressing Problem: Sensory Goal: Ability to identify factors that increase pain levels will improve while working to decrease the patient's pain levels Outcome: Progressing Problem: Coping Goal: Ability to cope will improve Outcome: Progressing Problem: Health Behavior Goal: Identification of resources available to assist in meeting health care needs will improve Outcome: Progressing Problem: Fall Risk Goal: Ability to state ways to decrease the risk of falls will improve Outcome: Progressing Goal: Will remain free from falls Outcome: Progressing Goal: Will remain free from injury from falls Outcome: Progressing Problem: Neurosensory Goal: Absence of seizures Outcome: Progressing Problem: Respiratory Goal: Achieves optimal ventilation and oxygenation Outcome: Progressing Problem: Cardiovascular Goal: Maintains optimal cardiac output and hemodynamic stability Outcome: Progressing Problem: Skin/Tissue Integrity Goal: Skin integrity remains intact Outcome: Progressing Problem: Musculoskeletal Goal: Return mobility to safest level of function Outcome: Progressing Problem: Gastrointestinal Goal: Minimal or absence of nausea and vomiting Outcome: Progressing Goal: Maintains or returns to baseline bowel function Outcome: Progressing Goal: Maintains adequate nutritional intake Outcome: Progressing Problem: Genitourinary Goal: Absence of urinary retention Outcome: Progressing Problem: Infection Goal: Absence of infection during hospitalization Outcome: Progressing Problem: Metabolic/Fluid and Electrolytes Goal: Electrolytes maintained within normal limits Outcome: Progressing Problem: Hematologic Goal: Maintains hematologic stability Outcome: Progressing Goals: Clinical Goals for the Shift: Pt will be free of fall/injury, report adequate pain control, and rest comfortably Summary: - Free of fall/injury - 1:1 observation continued, no injuries or events this shift - Pt endorsing ongoing SI thoughts but did not elaborate further, MD notified - Reported partial pain control with PRN pain medications. Napped a majority of this shift LE HRMS CONSULTANT * Initial Assessments - Sissy Mcmanus RN - 06/04/2024 12:46 PM ORACLE HRMS CONSULTANT CM Initial Assessment Interview Note Information Obtained From: Patient (06/04/241243) Admission Source: ED Impression: 28 y.o. male with PMHx HIV, PTSD, and amphetamine use brought in by EMS who presents after overdose of benzodiazepines. Patient awake and alert in hospital bed during time of assessment with sitter in the room with him. Patient agreeable to CM assessment but reports he is irritated. Patient reports being independent of ADLs, and no DME use currently. He did not tell CM where he was staying prior to admission, but reports the address on file is his grandparents home, but that he isnot staying there. Patient reports he spoke with SW regarding where he wants to go at d/c (see SW note). Plan Includes: Patient likely to d/c to halfway once medically stable. CM will continue to follow for d/c planning and referrals as indicated. Primary Source of Transportation: Does the patient need discharge transport arranged?: Yes Has discharge transport been arranged?: No (06/04/241243) Health Insurance Coverage: [employer] [facility] Prescription Coverage: yes Pharmacy: [facility] [place], [place] - [address] [address] [facility] [place], [place] - [address] [facility] [address] [facility] [address] [facility] [place], [place] [address] [facility] [address] [address] [facility] [address] [facility] [place], [place] - [address], [place] [address] [facility] [facility] [address] Primary Care Provider: Mayd Sullivan MD - verified Prior to Admission: Functional Status: Independent with ADLs Primary Caregiver: Self Support System: None Home Care Services: No Durable Medical Equipment: None Living Arrangements: Other (Comment), Alone Type of Residence: Homeless Steps in home?: No steps inside or outside Medication management: Independent (06/04/241243) Potential discharge needs include: transportation Behavioral Health Services: Behavioral Health Services: No (06/04/241243) Anticipated Level of Care: Anticipated discharge level of care: Retirement Pt/Family agrees with Anticipated Level of Care: Yes (06/04/241243) Patient expects to be Discharged to: Retirement, (06/04/241243) Additional Information: Spoke with patient at bedside and explained role of CM. Patient's Identified Problem/Goal Problem: Ensure acute medical [...] Collaboration with Patient, Provider, Direct Care Nurse, Hardwood Floor Installation Helper, and other members of theHealth Care Team to assure needed interventions completed. 2. Return patient to optimal level of self-care post discharge. 3. Transcribing Operator Head will follow for Discharge Planning - interventions as needed 4. Anticipated level of care at discharge 5. Planned Discharge Disposition Sissy Mcmanus RN LE HRMS CONSULTANT * Consults, Subsequent - Mary Valdes MD - 06/04/2024 12:19 PM CST Psychiatry CL Service Progress Note Interval History: - In contrast to yesterday, patient reports that he overdosed on Xanax he got off the street. When I informed patient that I know he didn't actually have an argument with his mother a few days ago, he states that she is lying. He states that he is suicidal today and that the thoughts are more aggressive today. He could not elaborate on this. Says that he is having thoughts of overdosing or shooting himself. Says that he has a gun that's hidden in a luggage near [facility], and he refuses to tell me where this luggage is. Demands to be admitted to psych, saying that if we don't send him to the psych floor or another hospital he will kill himself. When asked about going to an inpatient rehab facility or sober living facility instead, states that he can't because I'm not ready, I need to go to psych . Says he needs to go to psych because I need monitoring and groups . Continues to refuse the option of inpatient rehab when I inform him that he can get monitoring there and groups as well. He refuses outpatient psych care since I need to got to psych . When I inform beau ent he will not be admitted to psych, he turns away and says I'm not giving him what he needs. - I spoke to [facility] caustic mixer Isadora ([phone]). She states patient used to see psychiatrist Carrie Robb, but hasn't gone to an appointment in a long time. States that up until 2 months ago, the patient would report SI every week in order to get admitted to hospitals. She states he would tell me if I don't come pick him up and take him to another hospital, he would kill himself . For the past 1-2 months, Isadora hasn't been able to reach him. States that he hasn't been in engaged in psychservices with [facility] since November 2023, so he has been discharged from [facility] services. He can re-establish with [facility] by doing a re- assessment at their [place] office. Medications: sodium chloride 0.9%, 0.5-20 mL, intra-catheter, Q8H KIMBERLEY (ALT) PRN Medications Medication Dose Route Frequency Last Admin acetaminophen (TYLENOL) tablet 650 mg 650 mg oral Q4H PRN 650 mg at 06/04/24 0803 Carrier Fluids for Secondary Infusion - 0.9% Sodium Chloride 30 mL intravenous PRN loperamide (IMODIUM) capsule 2 mg 2 mg oral BID PRN ramelteon (ROZEREM) tablet 8 mg 8 mg oral Nightly PRN sodium chloride 0.9% flush 0.5-20 mL 0.5-20 mL intra-catheter PRN Medication Compliance: Compliant Physical Exam: Vitals: 06/04/24 0721 BP: 129/49 Pulse: 68 Resp: 16 Temp: SpO2: 97% A physical exam was performed by the primary team and reviewed. Mental Status Exam: General Appearance and Behavior: Appears stated age No apparent distress Normal psychomotor activity Poor eye contact Non-cooperative, Guarded, and Manipulative Speech: Regular rate Normal rhythm Normal volume Normal amount Normal tone Spontaneous Normal latency (<3 seconds) Flow of Thought: perseverates on getting admitted to psych Content of Thought: +Conditional SI - threatening to overdose or shoot himself if not admitted to psych, endorses intent Negative for homicidal ideation, delusions, hallucinations, thought insertion, thought withdrawal, thought broadcasting, thought blocking, referential thinking, obsessions, ruminations, phobias, grandiosity, hyperreligiosity, and poverty of content Future planning - has plans to get admitted to psych in order to be monitored and participate in groups, says if we don't admit him to psych here he wants to go to a different hospital Mood: suicidal Affect: irritable, restricted range, and inappropriate to conversation/situation Insight: poor Judgment: poor Sensorium: alert, awake, and oriented x 3 Lab/Radiology/Diagnostic Review: Laboratory review: Lab results in the last 24 hours: Recent Results (from the past 24 hours) CBC with auto differential Collection Time: 06/04/24 6:10 AM Result Value Ref Range WBC 4.6 3.8 - 9.9 K/cumm Hgb 12.9 (L) 13.0 - 17.5 g/dL Hct 41.2 38.9 - 50.3 % Plt 292 150 - 400 K/cumm MPV 9.2 9.1 - 12.3 fL RBC 5.18 4.30 - 5.80 M/cumm MCV 79.5 (L) 81.3 - 96.4 fL MCH 24.9 (L) 27.1 - 33.3 pg MCHC 31.3 (L) 32.3 - 35.7 g/dL RDW CV 14.9 11.1 - 14.9 % RDW SD 43.5 35.7 - 48.1 fL NRBC abs 0.00 0.00 - 0.01 K/cumm Comprehensive metabolic panel Collection Time: 06/04/24 6:10 AM Result Value Ref Range Sodium 138 135 - 145 mmol/L Potassium, pl 3.7 3.3 - 4.9 mmol/L Chloride 105 97 - 110 mmol/L CO2 24 22 - 32 mmol/L Anion gap 9 2 - 15 mmol/L BUN 8 6 - 25 mg/dL Creatinine 0.97 0.80 - 1.30 mg/dL Glucose 103 70 - 199 mg/dL Calcium 8.7 8.5 - 10.3 mg/dL Bilirubin, total 0.2 0.1 - 1.2 mg/dL Protein, pl 7.5 6.5 - 8.5 g/dL Albumin 3.5 3.5 - 5.0 g/dL Alk phos 73 40 - 130 Units/L ALT 19 7 - 55 Units/L AST 17 10 - 50 Units/L Lactate Collection Time: 06/04/24 6:10 AM Result Value Ref Range Lactate 2.0 0.7 - 2.0 mmol/L Differential, auto Collection Time: 06/04/24 6:10 AM Result Value Ref Range Neutrophil abs 2.6 1.5 - 6.5 K/cumm Imm gran abs 0.0 0.0 - 0.1 K/cumm Lymphocyte abs 1.6 0.8 - 3.3 K/cumm Monocyte abs 0.3 0.2 - 0.8 K/cumm Eosinophil abs 0.1 0.0 - 0.5 K/cumm Basophil abs 0.0 0.0 - 0.1 K/cumm Neutrophil pct 56.0 % Imm gran pct 0.2 % Lymphocyte pct 35.4 % Monocyte pct 6.7 % Eosinophil pct 1.3 % Basophil pct 0.4 % eGFR Collection Time: 06/04/24 6:10 AM Result Value Ref Range eGFR >90 >=60 mL/min/1.73 m2 PRIMARY DIAGNOSIS: Borderline personality disorder Severe stimulant use disorder Assessment: Phil Chase is a 28 y.o. male with a history of borderline personality disorder, malingering,severe methamphetamine use disorder, HIV, neurosyphilis who presented to the hospital for intentional Xanax overdose. Psychiatry consulted to consider admission to psychiatry. Patient has a diagnosis of borderline personality [...] psych numerous times without any clear benefit. Patient reports that over the past few months he developed depressed mood and worsening of SI, and denies other depressive symptoms. Yesterday, patient reports that he overdosed on prescribed Xanax after getting in a fight with his parents. However, there are no recent dispenses of Xanax and patient's mother states she has not heard from the patient for 1 month now. He was initially somnolent on exam and had a respiratory acidosis, concerning for intentional ingestion. Interestingly, UDS negative for benzos (although could be false negative). On initial exam, patient continues to threaten SI if not admitted, but displays adequate future planning. Clinical presentation is most consistent with borderline personality disorder. There is a clear manipulative component to his presentation givensome of his false reports of yesterday's events and threats of suicide if not admitted. He does notmeet criteria for a major depressive episode at this time. Could consider substance-induced mood disorder, although this seems less likely given his chronic SI and suicidal gestures/suicide attempts. At this time, patient is demanding admission to psych, and he has conditional SI, saying that if hedoesn't get admitted to psych he will kill himself. I attempted to discuss treatment options with him, but he refused any discussion that did not involve psych admission. Still does not meet criteriafor a major depressive episode at this time. High concern for secondary gain of admission. This is consistent with patient's known pattern of repeated, manipulative attempts to remains hospitalized in order to obtain halfway, and this is not modifiable by an inpatient psychiatric admission. Patienthas not benefited from previous admissions, as evidenced by his frequent ED presentations and inpatient hospitalizations. Overall, this patient is at chronic high risk of harm to self and others due to non-modifiable risk factors, and he does not have acute risk factors that can be modified by an inpatient psych admission. He displays adequate future planning and help-seeking behavior. I discussed treatment options, such as inpatient rehab, sober living facility, outpatient psych care, and he refused all these options. If patient becomes amenable to substance use treatment, please consult for substance use treatment options. I will call [facility] to try and re-establish care, and I will give patient the information for [facility] and [facility] walk in clinic for outpatient psych care. Patient states he has access to a gun, but have no way of removing this from his possession since he will not give me any information about it's location. I do not think patient would benefit from any psychotropic meds given no clear mood episode or psychosis. Since patient is threatening to overdose, I am concerned that meds could end up doing more harm than good. Risk factors: male sex, living alone, prior suicide attempt(s), communication of suicidal intent, communication of suicide plan, chronic medical problem(s), active substance use of meth and cocaine, poor coping skills, access to firearms, history of medication non-adherence, history of impulsivity, unemployment, non-domiciled, lack of social support Protective factors: future planning, help-seeking behavior Recommendations: - Does not meet criteria for psych admission - Would hold off on re-starting any psychotropic medications - If patient becomes agreeable to substance use treatment, please consult SW to discuss substance use treatment options - For outpatient psych follow up, I have put the information for [facility] and [facility] walk in clinic inhis discharge instructions. - In case of acute agitation, may consider Haldol 5 mg PO Q4hr PRN, or Haldol 5 mg IM Q4hr PRN if severely agitated or refusing PO. Psychiatry consults will continue to follow. For questions, concerns, or to request a re-evaluation, please contact the Psychiatry Consult Service at [phone]. All recommendations preliminary until note has been cosigned/attested by a Psychiatry attending (Sunday - Sunday during regular business hours). Cosigned by Ap Leonard MD at 06/05/2024 11:58 AM ORACLE HRMS CONSULTANT LE HRMS CONSULTANT LE HRMS CONSULTANT * Plan of Care - Beatris Reid RN - 06/04/2024 6:41 AM CST Problem: Lack of Knowledge Goal: Ability to develop a pain control plan will improve Outcome: Progressing Problem: Fall Risk Goal: Will remain free from falls Outcome: Progressing Goal: Will remain free from injury from falls Outcome: Progressing Problem: Neurosensory Goal: Absence of seizures Outcome: Progressing Problem: Skin/Tissue Integrity Goal: Skin integrity remains intact Outcome: Progressing Problem: Gastrointestinal Goal: Minimal or absence of nausea and vomiting Outcome: Progressing Goal: Maintains adequate nutritional intake Outcome: Progressing Goals: Clinical Goals for the Shift: orient to unit, continue 1:1 sitter, compliance with nursing care, safe environment noted Summary: Monitoring vitals, labs. 1:1 sitter continued, no unsafe or self- injurious behavior observed, safe environment noted throughout shift. Pt not allowing nursing care in evening; allowed blood draw and vitals this AM. Pt to remain free of falls. Will promote rest and comfort. LE HRMS CONSULTANT LE HRMS CONSULTANT * Significant Event - Yissel Berg MD - 06/03/2024 10:06 AM ORACLE HRMS CONSULTANT ED Hospitalist Event Note In my role as the ED hospitalist, I have seen and examined this patient and reviewed the chart. I have discussed with the ED team and will assume care of this patient until an inpatient bed and team is assigned. Phil Chase is a 28 yo M with HIV (previously on Biktarvy, stopped 1 mo ago), borderline PD, PTSD, syphilis, stimulant use presents for evaluation of Xanax overdose - ingested 27 tabs in suicide attempt. Patient is awake and alert this AM. States that he still has thoughts of harming himself.Tox saw yesterday and will re-evaluate today - I suspect that patient will be medically cleared today. Patient reports N/V/diarrhea for a few days; diarrhea of unclear chronicity - stool culture already sent, will order O&P. Symptomatic treatment Yissel Berg MD LE HRMS CONSULTANT LE HRMS CONSULTANT * ED Re-evaluation Note - Ezra Espinoza MD - 06/03/2024 7:03 AM ORACLE HRMS CONSULTANT ED Re-evaluation TRANSITION OF CARE: I, Ezra Espinoza MD, am taking signout from Dr. Rodriguez (off going ED attending). I have reviewed all pertinent vital signs, allergies, and history available in the chart. Summary: 28 y.o. male with PMH of bipolar disease, prior suicide attempts, HIV with reported poor complianceon Biktarvy Past Medical History: Diagnosis Date Anal warts Borderline personality disorder (CMS/HCC) (HCC) Depression prior suicide attempts (10/2023, 02/2024) Depression with suicidal ideation HIV (human immunodeficiency virus infection) (HCC) HIV (human immunodeficiency virus infection) (HCC) Dx 2018 Methamphetamine use disorder, moderate, in early remission (HCC) Neuropathy (CMS/HCC) PTSD (post-traumatic stress disorder) Syphilis (acquired) Rx'd with 3 IM doses of Penicillni per patient Chief Complaint Patient presents with Psychiatric Evaluation Presenting to the ED with concern for reported overdose with 272 tablets of Alprazolam (Xanax). BP 131/85 Pulse 52 Temp 37.1 ??C (98.8 ??F) (Oral) Resp 14 Ht 182.9 cm (6' 0.01 ) Wt 81.6kg (179 lb 14.3 oz) SpO2 99% BMI 24.39 kg/m?? Abnormal Labs Reviewed URINALYSIS AND REFLEX TO MICROSCOPIC AND CULTURE - Abnormal; Notable for the following components: Result Value Specific gravity, ur 1.037 (*) Protein, ur ql 1+ (*) All other components within normal limits BASIC METABOLIC PANEL - Abnormal; Notable for the following components: Glucose 57 (*) All other components within normal limits CBC WITH AUTO DIFFERENTIAL - Abnormal; Notable for the following components: RBC 5.85 (*) MCH 25.1 (*) MCHC 30.9 (*) All other components within normal limits BLOOD GAS, VENOUS - Abnormal; Notable for the following components: pH, Venous 7.22 (*) PCO2, Venous 61 (*) All other components within normal limits HEPATIC FUNCTION PANEL - Abnormal; Notable for the following components: Protein, pl 9.2 (*) All other components within normal limits DRUGS OF ABUSE SCREEN, URINE WITHOUT CONFIRMATION - Abnormal; Notable for the following components: Amphetamine, ur Screen Positive, presumptive (*) Cocaine, ur Screen Positive, presumptive (*) All other components within normal limits Narrative: Drug of Abuse screening is performed by immunoassay for medical purposes only. This is not to be used for Pain Management purposes. SEPSIS LACTATE WITH REFLEX - Abnormal; Notable for the following components: Sepsis Lactate 2.3 (*) All other components within normal limits URINALYSIS, MICROSCOPIC ONLY - Abnormal; Notable for the following components: Bacteria, ur Trace (*) Mucous, ur Present (*) All other components within normal limits BLOOD GAS, VENOUS - Abnormal; Notable for the following components: pH, Venous 7.25 (*) PCO2, Venous 58 (*) All other components within normal limits LACTATE - Abnormal; Notable for the following components: Lactate 2.6 (*) All other components within normal limits CREATINE KINASE (CK), TOTAL - Abnormal; Notable for the following components: CK 361 (*) All other components within normal limits T-HELPER CELLS (CD4) COUNT - Abnormal; Notable for the following components: CD4 pct 10 (*) CD4 Absolute 169 (*) All other components within normal limits BLOOD GAS, VENOUS - Abnormal; Notable for the following components: pH, Venous 7.25 (*) All other components within normal limits BASIC METABOLIC PANEL - Abnormal; Notable for the following components: Creatinine 0.76 (*) Glucose 69 (*) All other components within normal limits LACTATE - Abnormal; Notable for the following components: Lactate 2.8 (*) All other components within normal limits LIPID PANEL - Abnormal; Notable for the following components: HDL 33 (*) All other components within normal limits POCT GLUCOSE DEVICE - Abnormal; Notable for the following components: Glucose, POC 45 (*) All other components within normal limits POCT GLUCOSE DEVICE - Abnormal; Notable for the following components: Glucose, POC 56 (*) All other components within normal limits Seen last night by Toxicology Consult service. Tox will reassess this morning. His UDS is negative for benzodiazepine, but alprazolam often -- although inconsistently -- producesa positive result for benzodiazepine. His negative benzodiazepine result casts doubt on his report of large alprazolam OD. Now he is currently resting quietly in the B-pod room [id number]. Pending: admission to Hospital Medicine with sitter, Toxicology re-evaluation. Dispo: admission to Hospital Medicine with sitter. Ezra Espinoza MD Professor Department of Emergency Medicine Ezra Espinoza MD 06/03/24 0831 LE HRMS CONSULTANT * ED Re-evaluation Note - Joanne Palacios MD - 06/02/2024 11:25 PM ORACLE HRMS CONSULTANT ED Re-evaluation TRANSITION OF CARE: I, Joanne Palacios MD, am taking signout from CONDENSER WINDER Tracy under supervision of my attending physician. I have reviewed all pertinent vital signs, allergies, history, labs, and imaging available in the chart. Summary: 28 y.o. malepresented after SA and xanax overdose, initially concern for ICU admission butnow stable, admitted to the floor. Toxicology to see in the AM, continues to have non gap slight acidosis on VBG, possibly due to diarrhea. Has rectal tube. Pending: Toxicology clearance Dispo: Admitted to medicine floor Current visit diagnosis: 1. Intentional benzodiazepine overdose, initial encounter ([facility]) 2. Diarrhea, unspecified type ED Course as of 06/02/24 2337 Time: 06/02 927 Value: Pulse(!): 48 Comment: Patient is drowsy and has a pattern consistent with benzodiazepine overdose. Will place the patient on a monitor with end-tidal CO2 By: Calvin Sainz MD Time: 06/02 928 Comment: . By: Calvin Sainz MD Time: 06/02 1003 Comment: Moving patient over to [facility] for closer monitoring and potential airway intervention - has acute respiratory acidosis and declining mental status and low ETCO2 By: Calvin Sainz MD Time: 06/02 1024 Comment: Toxic bedside, recommended repeat EKG By: Maris Kidd MD Time: 06/02 0742 Comment: Toxic like a repeat lactate and VBG at 3 hr larry from arrival By: Maris Kidd MD Time: 06/02 491 Comment: POC GLucose 45, will give d10 bolus. By: Maris Kidd MD Time: 06/02 131 Comment: Pt moving back to B pod By: Maris Kidd MD Time: 06/02 1315 Value: Glucose, POC(!!): 45 Comment: (Reviewed) By: Maris Kidd MD Time: 06/02 1334 Comment: Patient has returned back to the [facility]. He is now more alert and oriented.His heart rate has improved. His blood pressure is within normal limits. He is complaining of some diarrhea and generalized fatigue but otherwise has no acute complaints. Pending reassessment by Toxicology. Some of his labs have also improved. We will continue to recheck a sugar, give dextrose containing fluids and oral fluids now that he is awake and alert enough. We will continue to reassess blood glucose. When patient has been medically cleared he will require psychiatry consultation. By: Calvin Sainz MD Time: 06/02 1450 Comment: Signout: pending psych consult after sobriety. Pt took 27. 2mg xanax pills this morning. He is doing better and PO challenge now. Hx HIV non compliant with biktarvy. By: Pooja Molina NP Time: 06/02 3193 Comment: Per tox, pt is almost cleared. He is eating/drinking and mental status is improved. Give it a little more time and if pt ambulating, can be cleared. Would like a repeat vbg. By: Pooja Molina NP Time: 06/02 1636 Comment: Per tox, VBG has not really improved, even though it's showing the respiratory component has resolved. Can you check ketones, repeat lactate, and also get a serum Osm? We think this now is probably more metabolic acidosis, more likely due to some non-toxic medical cause (such as diarrhea,etc., although he's immunocompromised and may be more likely to have an infection), but we want to rule out any other tox causes with those labs. By: Pooja Molina NP Time: 06/02 1705 Comment: Pt has a lot of diarrhea. He is agreeable to rectal tube By: Pooja Molina NP Time: 06/02 2012 Comment: Per tox, Just looked over the labs, no osmol gap which is reassuring against a tox etiology. Nothing further from our standpoint tonight, just rec continued supportive care and we will follow up in the AM! By: Pooja Molina NP Johnson, Mackenzie Marie, MD 06/02/24 7935 LE HRMS CONSULTANT * ED Procedure Note - Maris Kidd MD - 06/02/2024 3:03 PM CSTAssociated Order(s): ECG 12 lead Procedure ECG 12 lead Date/Time: 06/02/2024 3:03 [...] the ED Maris Kidd MD Resident 06/02/24 1505 Cosigned by Jaci Menon MD at 06/02/2024 3:35 PM ORACLE HRMS CONSULTANT LE HRMS CONSULTANT LE HRMS CONSULTANT Associated attestation - Jaci Menon MD - 06/02/2024 3:35 PM ORACLE HRMS CONSULTANT I have personally reviewed the tracing and the resident's interpretation. I agree with the findings. * ED Re-evaluation Note - Maris Kidd MD - 06/02/2024 10:09 AM ORACLE HRMS CONSULTANT ED Re-evaluation TRANSITION OF CARE: IMaris MD, am taking signout. I have reviewed all pertinent vital signs, allergies, and history available in the chart. Summary: 28 y.o. male with h/o HIV on Biktarvy, here after SA, took 27 2 mg xanax at 0830. Intermittently apneic. Pending: Labs, tox c/s Dispo: Admit, likely icu ED Course as of 06/04/24 1601 Time: 06/02 927 Value: Pulse(!): 48 Comment: Patient is drowsy and has a pattern consistent with benzodiazepine overdose. Will place the patient on a monitor with end-tidal CO2 By: Calvin Sainz MD Time: 06/02 928 Comment: . By: Calvin Sainz MD Time: 06/02 1003 Comment: Moving patient over to [facility] for closer monitoring and potential airway intervention - has acute respiratory acidosis and declining mental status and low ETCO2 By: Calvin Sainz MD Time: 06/02 1024 Comment: Toxic bedside, recommended repeat EKG By: Maris Kidd MD Time: 06/02 6147 Comment: Toxic like a repeat lactate and VBG at 3 hr larry from arrival By: Maris Kidd MD Time: 06/02 1314 Comment: POC GLucose 45, will give d10 bolus. By: Maris Kidd MD Time: 06/02 1314 Comment: Pt moving back to B pod By: Maris Kidd MD Time: 06/02 1315 Value: Glucose, POC(!!): 45 Comment: (Reviewed) By: Maris Kidd MD Time: 06/02 576 Comment: Patient has returned back to the [facility]. He is now more alert and oriented.His heart rate has improved. His blood pressure is within normal limits. He is complaining of some diarrhea and generalized fatigue but otherwise has no acute complaints. Pending reassessment by Toxicology. Some of his labs have also improved. We will continue to recheck a sugar, give dextrose containing fluids and oral fluids now that he is awake and alert enough. We will continue to reassess blood glucose. When patient has been medically cleared he will require psychiatry consultation. By: Calvin Sainz MD Time: 06/02 2660 Comment: Signout: pending psych consult after sobriety. Pt took 27. 2mg xanax pills this morning. He is doing better and PO challenge now. Hx HIV non compliant with biktarvy. By: Pooja Molina NP Time: 06/02 1524 Comment: Per tox, pt is almost cleared. He is eating/drinking and mental status is improved. Give it a little more time and if pt ambulating, can be cleared. Would like a repeat vbg. By: Pooja Molina NP Time: 06/02 1636 Comment: Per tox, VBG has not really improved, even though it's showing the respiratory component has resolved. Can you check ketones, repeat lactate, and also get a serum Osm? We think this now is probably more metabolic acidosis, more likely due to some non-toxic medical cause (such as diarrhea,etc., although he's immunocompromised and may be more likely to have an infection), but we want to rule out any other tox causes with those labs. By: Pooja Molina NP Time: 06/02 1705 Comment: Pt has a lot of diarrhea. He is agreeable to rectal tube By: Pooja Molina NP Time: 06/02 2012 Comment: Per tox, Just looked over the labs, no osmol gap which is reassuring against a tox etiology. Nothing further from our standpoint tonight, just rec continued supportive care and we will follow up in the AM! By: Pooja Molina NP Saffaf, Mohammad, MD Resident 06/02/24 1010 Maris Kidd MD Resident 06/04/24 1601 LE HRMS CONSULTANT LE HRMS CONSULTANT * ED Procedure Note - Calvin Sainz MD - 06/02/2024 9:37 AM ORACLE HRMS CONSULTANT Associated Order(s): ECG 12 lead Procedure ECG 12 lead Date/Time: 06/02/2024 9:37 [...] notably in V2 through V6) Other findings: Other findings: early repolarization Interpretation: Interpretation: non-specific Recommended Follow-up: Recommended follow up: further workup in the ED Comments: Artifact limits this EKG but no obvious signs of acute occlusive pattern in this patient here with a benzodiazepine overdose. Calvin Sainz MD 06/02/24 0937 LE HRMS CONSULTANT * ED Procedure Note - Calvin Sainz MD - 06/02/2024 9:28 AM ORACLE HRMS CONSULTANT Associated Order(s): Critical Care Procedure Critical Care Performed by: Calvin Sainz MD Authorized by: Calvin Sainz MD Critical care provider statement: As reflected in the history, physical exam, orders, notes, and/or MDM, I was personally present while the patient was critically ill and provided critical care services for 30 minutes, excluding timeinvolved in separately billable procedures. Critical care was necessary to treat or prevent imminent or life- threatening deterioration of the following condition(s): unstable vital signs Bradycardia, respiratory acidosis, overdose Critical care was time spent by me providing the following: continuous telemetry, continuous pulse oximetry, continuous capnography, interpretation of bedside monitors, imaging, and arterial/venous lab draws and serial bedside patient exams frequent neurologic exams Toxicology consultation I provided emergent necessary critical care medicine [...] in the medical record. Calvin Sainz MD 06/02/24 1203 LE HRMS CONSULTANT * ED Pre-Arrival Note - Isela Colon RN - 06/02/2024 9:10 AM ORACLE HRMS CONSULTANT Pre-Arrival Note Pt took 27 2mg xanax 45min - 1 hour ago. Isela Colon RN LE HRMS CONSULTANT documented in this encounter Plan of Treatment Pending Results Name Type Priority Associated Diagnoses Date /Time Sepsis Lactate w/ Reflex Lab STAT 06/02/2024 9:35 AM ORACLE HRMS CONSULTANT T-helper cells (CD4) count Lab STAT 06/02/2024 9:35 AM ORACLE HRMS CONSULTANT Creatine kinase (CK), total Lab STAT 06/02/2024 9:35 AM ORACLE HRMS CONSULTANT Lipid panel Lab STAT 06/02/2024 5: 22 PM ORACLE HRMS CONSULTANT Cryptosporidium and Giardia antigen assay Stool Microbiology Timed 06/04/2024 8:36 PM ORACLE HRMS CONSULTANT Erythrocyte sedimentation rate Lab Routine 06/04/2024 8:36 PM ORACLE HRMS CONSULTANT CRP (acute phase) Lab Routine 024 8:36 PM ORACLE HRMS CONSULTANT Scheduled Orders Name Type Priority Associated Diagnoses Order Schedule Sepsis Lactate w/ Reflex Lab STAT Once for 1 Occurrences starting 06/02/2024 until 06/02/2024 T-helper cells (CD4) count Lab STAT Once for 1 Occurrences starting 06/02/2024 until 06/02/2024 Creatine kinase (CK), total Lab STAT Once for 1 Occurrences starting 06/02/2024 until 06/02/2024 Lipid panel Lab STAT Once for 1 Occurrences starting 06/02/2024 until 06/02/2024 Cryptosporidium and Giardia antigen assay Stool Microbiology Timed Lab orders - col lect at the specified time. for 1 Occurrences starting 06/03/2024 until 06/03/2024 Histoplasma Antigen Urine Microbiology STAT STAT for 1 Occurrences starting 06/04/2024 until 06/04/2024 Erythrocyte sedimentation rate Lab Routine Once for 1 Occurrences starting 06/04/2024 until 06/04/2024 CRP (acute phase) Lab Routine Once fo r 1 Occurrences starting 06/04/2024 until 06/04/2024 Cryptosporidium and Giardia antigen assay Stool Microbiology Routine Once for 1 Occurrences starting 06/04/2024 until 06/04/2024 Ova and parasite exam Stool Microbiology Routine Once for 1 Occurrences starting 06/04/2024 until 06/04/2024 documented as of this encounter Procedures Procedure Name Priority Date/Time Associated Diagnosis Comments VARICELLA ZOSTER VIRUS (VZV) PCR Routine 06/06/2024 11:53 AM ORACLE HRMS CONSULTANT HERPES SIMPLEX VIRUS (HSV) PCR Routine 06/06/2024 11:53 AM ORACLE HRMS CONSULTANT ENTEROVIRUS PCR Routine 06/06/2024 11:53 AM ORACLE HRMS CONSULTANT CELL COUNT W REFLEX DIFFERENTIAL, CSF Routine 06/06/2024 11:53 AM ORACLE HRMS CONSULTANT MYCOLOGY (FUNGAL) CULTURE AND CRYPTOCOCCUS ANTIGEN, CSF Routine 06/06/2024 11:53 AM ORACLE HRMS CONSULTANT CRYPTOCOCCAL ANTIGEN, CSF Routine 06/06/2024 11:53 AM ORACLE HRMS CONSULTANT VDRL, CSF Routine 06/06/2024 11:53 AM ORACLE HRMS CONSULTANT CSF PROTEIN Routine 06/06/2024 11:53 AM ORACLE HRMS CONSULTANT GLUCOSE, CSF Routine 06/06/2024 11:53 AM ORACLE HRMS CONSULTANT DC DIAGNOSTIC LUMBAR SPINAL PUNCTURE Routine 06/06/2024 11:46 AM ORACLE HRMS CONSULTANT HIV infection, unspecified symptom status (HCC) CT HEAD WO CONTRAST IP Routine 06/05/2024 5 :52 PM ORACLE HRMS CONSULTANT LACTATE Timed 06/04/2024 8:39 PM ORACLE HRMS CONSULTANT HEPATITIS C ANTIBODY Routine 06/04/2024 8:39 PM ORACLE HRMS CONSULTANT CYTOMEGALOVIRUS (CMV) DNA, QUANT GEN LAB Routine 06/04/2024 8:36 PM ORACLE HRMS CONSULTANT EGFR Routine 06/04/2024 8:36 PM ORACLE HRMS CONSULTANT DIFFERENTIAL AUTO Routine 06/04/2024 8:3 6 PM ORACLE HRMS CONSULTANT RPR TITER Timed 06/04/2024 8:36 PM ORACLE HRMS CONSULTANT CMV, IGG AND IGM ANTIBODIES Routine 06/04/2024 8:36 PM ORACLE HRMS CONSULTANT CBC WITH AUTO DIFFERENTIAL Routine 06/04/2024 8:36 PM ORACLE HRMS CONSULTANT CRYPTOCOCCAL ANTIGEN, SERUM Routine 06/04/2024 8:36 PM ORACLE HRMS CONSULTANT HEPATITIS B CORE ANTIBODY, TOTAL Routine 06/04/2024 8:36 PM ORACLE HRMS CONSULTANT RPR Timed 06/04/2024 8:36 PM ORACLE HRMS CONSULTANT HEPATITIS B SURFACE ANTIGEN Routine 06/04/2024 8:36 PM ORACLE HRMS CONSULTANT BLOOD CULTURE Routine 06/04/2024 8:36 PM ORACLE HRMS CONSULTANT ERYTHROCYTE SEDIMENTATION RATE Routine 06/04/2024 8:36 PM ORACLE HRMS CONSULTANT CRP (ACUTE PHASE) Routine 06/04/2024 8:3 6 PM ORACLE HRMS CONSULTANT COMPREHENSIVE METABOLIC PANEL Routine 06/04/2024 8:36 PM ORACLE HRMS CONSULTANT LACTATE Timed 06/04/2024 6:10 AM ORACLE HRMS CONSULTANT EGFR Timed 06/04/2024 6:10 AM ORACLE HRMS CONSULTANT DIFFERENTIAL AUTO Timed 06/04/2024 6:1 0 AM ORACLE HRMS CONSULTANT CBC WITH AUTO DIFFERENTIAL Timed 06/04/2024 6:10 AM ORACLE HRMS CONSULTANT COMPREHENSIVE METABOLIC PANEL Timed 06/04/2024 6:10 AM ORACLE HRMS CONSULTANT POCT GLUCOSE DEVICE Routine 06/03/2024 5 :26 AM ORACLE HRMS CONSULTANT POCT KETONE, BLOOD Routine 06/02/2024 7: 46 PM ORACLE HRMS CONSULTANT STOOL CULTURE Routine 06/02/2024 7:17 PM ORACLE HRMS CONSULTANT LACTATE Routine 06/02/2024 5:22 PM ORACLE HRMS CONSULTANT EGFR STAT 06/02/2024 5:22 PM ORACLE HRMS CONSULTANT OSMOLALITY, BLOOD STAT 06/02/2024 5:2 2 PM ORACLE HRMS CONSULTANT LIPID PANEL STAT 06/02/2024 5:22 PM ORACLE HRMS CONSULTANT BASIC METABOLIC PANEL STAT 06/02/2024 5:22 PM ORACLE HRMS CONSULTANT BLOOD GAS, VENOUS STAT 06/02/2024 3:4 4 PM ORACLE HRMS CONSULTANT POCT GLUCOSE DEVICE Routine 06/02/2024 3 :25 PM ORACLE HRMS CONSULTANT ECG 12-LEAD Routine 06/02/2024 3:03 PM ORACLE HRMS CONSULTANT POCT GLUCOSE DEVICE Routine 06/02/2024 2 :26 PM ORACLE HRMS CONSULTANT POCT GLUCOSE DEVICE Routine 06/02/2024 1 :50 PM ORACLE HRMS CONSULTANT POCT GLUCOSE DEVICE Routine 06/02/2024 1 :13 PM ORACLE HRMS CONSULTANT LACTATE Routine 06/02/2024 12:29 PM ORACLE HRMS CONSULTANT BLOOD GAS, VENOUS Routine 06/02/2024 12: 29 PM ORACLE HRMS CONSULTANT TROPONIN I HIGH-SENSITIVITY 2-HOUR Timed 06/02/2024 11:13 AM ORACLE HRMS CONSULTANT URINALYSIS AND REFLEX TO MICROSCOPIC AND CULTURE STAT 06/02/2024 10:28 AM ORACLE HRMS CONSULTANT DRUGS OF ABUSE SCREEN, URINE WITHOUT CONFIRMATION STAT 06/02/2024 10:28 AM ORACLE HRMS CONSULTANT URINALYSIS, MICROSCOPIC ONLY STAT 06/02/2024 10:28 AM ORACLE HRMS CONSULTANT XR CHEST 1 VIEW ED 06/02/2024 10:22 AM ORACLE HRMS CONSULTANT ECG 12-LEAD STAT 06/02/2024 9:37 AM ORACLE HRMS CONSULTANT TROPONIN I HIGH-SENSITIVITY SERIES (BASELINE, 2HR, 4HR, 6HR) STAT 06/02/2024 9:35 AM ORACLE HRMS CONSULTANT SEPSIS LACTATE WITH REFLEX STAT 06/02/2024 9:35 AM ORACLE HRMS CONSULTANT EGFR STAT 06/02/2024 9:35 AM ORACLE HRMS CONSULTANT THYROID FUNCTION CASCADE STAT 06/02/2024 9:35 AM ORACLE HRMS CONSULTANT CBC WITH AUTO DIFFERENTIAL STAT 06/02/2024 9:35 AM ORACLE HRMS CONSULTANT MANUAL DIFFERENTIAL STAT 06/02/2024 9 :35 AM ORACLE HRMS CONSULTANT T-HELPER CELLS (CD4) COUNT STAT 06/02/2024 9:35 AM ORACLE HRMS CONSULTANT APTT STAT 06/02/2024 9:35 AM ORACLE HRMS CONSULTANT PROTIME-INR STAT 06/02/2024 9:35 AM ORACLE HRMS CONSULTANT BLOOD GAS, VENOUS STAT 06/02/2024 9:3 5 AM ORACLE HRMS CONSULTANT CREATINE KINASE (CK), TOTAL STAT 06/02/2024 9:35 AM ORACLE HRMS CONSULTANT ETHANOL STAT 06/02/2024 9:35 AM ORACLE HRMS CONSULTANT ACETAMINOPHEN LEVEL STAT 06/02/2024 9 :35 AM ORACLE HRMS CONSULTANT SALICYLATE LEVEL STAT 06/02/2024 9:35 AM ORACLE HRMS CONSULTANT HEPATIC FUNCTION PANEL STAT 9:35 AM ORACLE HRMS CONSULTANT BASIC METABOLIC PANEL STAT 06/02/2024 9:35 AM ORACLE HRMS CONSULTANT DC CRITICAL CARE ILL/INJURED PATIENT INIT 30-74 MIN Routine 06/02/2024 9:28 AM ORACLE HRMS CONSULTANT documented in this encounter Results * Cryptococcal antigen, CSF CSF (06/06/2024 11:53 AM ORACLE HRMS CONSULTANT) Cryptococcal Antigen Negative Negative Comment: The cryptococcal [...] revised 2018. CSF 06/06/2024 11:5 3 AM ORACLE HRMS CONSULTANT 06/06/2024 12:19 PM ORACLE HRMS CONSULTANT us Rahel Miller MD LAB MICROBIOLOGY - GENERAL ORDERABLES Final Result [facility] [place] [address] * VDRL, CSF CSF (06/06/2024 11:53 AM ORACLE HRMS CONSULTANT) Pathologist [facility] VDRL CSF Negative Negative [place] [facility] Comment: Test Performed by: [facility] [address] [place] [address] Pigment Grinder: Asim Shukla Ph.D.; CLIA# [id number] CSF 06/06/2024 11:5 3 AM ORACLE HRMS CONSULTANT 06/06/2024 12:12 PM ORACLE HRMS CONSULTANT Rahel Miller MD LAB MICROBIOLOGY - GENERAL ORDERABLES Final Result [facility]E [facility] [place] [address] [place] [facility] * Mycology (fungal) culture and Cryptococcus antigen, CSF CSF (06/06/2024 11:53 AM ORACLE HRMS CONSULTANT) Pathologist [facility] Report Final Report: No growth of fungus CSF 06/06/2024 11:5 3 AM ORACLE HRMS CONSULTANT 06/06/2024 12:19 PM ORACLE HRMS CONSULTANT Narrative [facility] - 07/04/2024 7:33 AM ORACLE HRMS CONSULTANT The Cryptococcal Antigen is resulted under a separate test. ??Please see ? Cryptococcal Antigen, CSF? for result. Testing performed by [facility] Laboratory ([phone]). us Rahel Miller MD LAB MICROBIOLOGY - GENERAL ORDERABLES Final Result JOE [facility]WARD [facility] [place] [address] * Enterovirus PCR CSF (06/06/2024 11:53 AM ORACLE HRMS CONSULTANT) Pathologist [facility] Enterovirus RNA, CSF Not Detected Not Detected [facility] Comment: Interpretive Data Testing performed by [facility] using the [employer] MDX enterovirus assay. This assay detects RNA from enterovirus using Real Time PCR. This assay is laboratory developed and is not cleared by the [place] Food and Drug Administration. The performance characteristics have been verified by the [facility]. If negative results are obtained in patients less than two years of age with symptoms and laboratory findings consistent with enterovirus, testing for parechovirus may be appropriate. Current Interpretive Data was last revised on 2023. CSF 06/06/2024 11:5 3 AM ORACLE HRMS CONSULTANT 06/06/2024 12:40 PM ORACLE HRMS CONSULTANT Rahel Miller MD LAB MICROBIOLOGY - GENERAL ORDERABLES Final Result Performing Organization Address City/[facility] Co de Phone Number JOE [facility] Department [email or web address] [place] [address] [facility] * Herpes Simplex Virus (HSV) PCR CSF (06/06/2024 11:53 AM ORACLE HRMS CONSULTANT) [facility] HSV DNA Not Detected Not Detected [facility] Comment: Interpretive Data This assay is performed [...] on 11/19/2018 CSF 06/06/2024 11:5 3 AM ORACLE HRMS CONSULTANT 06/07/2024 7:18 AM ORACLE HRMS CONSULTANT Rahel Miller MD LAB MICROBIOLOGY - GENERAL ORDERABLES Final Result Performing Organization Address City/[facility]/ZIP Co de Phone Number JOE [facility] [email or web address] [place] [address] [facility] * Varicella Zoster Virus (VZV) PCR CSF (06/06/2024 11:53 AM ORACLE HRMS CONSULTANT) VZV DNA Not Detected Not Detected [facility] Comment: Interpretative Data: Testing performed by [facility] ([phone]). This assay is performed using the [employer] Molecular Simplexa VZV Direct assay. This is a qualitative, real-time PCR assay for the detection of Varicella-zoster virus (VZV). This assay has been cleared by the U.S. Food and Drug Administration for performance on cerebrospinal fluid and lesion swabs. The performance characteristics have been verified by the [facility]. Results must be considered in the clinical context, and a negative result does not rule out infection. Interpretive data last revised 2021. CSF 06/06/2024 11:5 3 AM ORACLE HRMS CONSULTANT 06/07/2024 7:18 AM ORACLE HRMS CONSULTANT Rahel Miller MD LAB MICROBIOLOGY - GENERAL ORDERABLES Final Result Performing Organization Address City/[facility] Co de Phone Number [facility] [place] [address] [facility] * Cell count w/reflex diff, CSF (06/06/2024 11:53 AM ORACLE HRMS CONSULTANT) Tube Number, CSF Tube 1 Color, CSF Colorless Colorless [facility] Clarity, CSF Clear Clear [facility] Xanthochromia , CSF Absent Absent [facility] Nucleated cells, CSF 0 0 - 5 /cumm [facility] RBC, CSF 0 0 - 0 /cumm [facility] CSF 06/06/2024 11:5 3 AM ORACLE HRMS CONSULTANT 06/06/2024 12:14 PM ORACLE HRMS CONSULTANT Rahel Miller MD LAB BODY FLUIDS A ND STOOLS ORDERABLES Final Result Performing Organization Address City/[facility]/ZIP Co de Phone Number [facility] [place] [address] * Protein, total, CSF (06/06/2024 11:53 AM ORACLE HRMS CONSULTANT) Protein, CSF 28 5 - 45 mg/dL Comment:Reviewed CSF 06/06/2024 11:5 3 AM ORACLE HRMS CONSULTANT 06/06/2024 12:14 PM ORACLE HRMS CONSULTANT Rahel Miller MD LAB BODY FLUIDS A ND STOOLS ORDERABLES Final Result Performing Organization Address [facility] de Phone Number [facility] [place] [address] * Glucose, CSF (06/06/2024 11:53 AM ORACLE HRMS CONSULTANT) Glucose, CSF 66 mg/dL Comment: Reviewed Reference Interval Information: CSF Glucose should be 60-66% of the most current plasma glucose concentration (milligrams/deciliter) CLIN. CHEM. 41/3, [id number] (1994), Clinical Utility of Biochemical Analysis of Cerebrospinal Fluid, Larry Bone and Vince Pearson. Current interpretive data was last revised on 2019. CSF 06/06/2024 11:5 3 AM ORACLE HRMS CONSULTANT 06/06/2024 12:14 PM ORACLE HRMS CONSULTANT us Rahel Miller MD LAB BODY FLUIDS A ND STOOLS ORDERABLES Final Result Performing Organization Address [facility] de Phone Number [facility] [place] [address] * DC DIAGNOSTIC LUMBAR SPINAL PUNCTURE (06/06/2024 11:46 AM ORACLE HRMS CONSULTANT) Narrative Geo Palacios MD - 06/06/2024 11:46 AM ORACLE HRMS CONSULTANT Germaine Torres MD ? 06/06/2024 11:57 AM Lumbar Puncture Date/Time: 06/06/2024 11:46 AM Performed by: Michelle Graham MD Authorized by: Geo Palacios MD ?? [place] Protocol: RN Notified of Procedure: yes ?? Informed consent: ??Risks, benefits, alternatives discussed and patient/premium service representative/guardian agrees and accepts Patient's stated name/ [...] matched to patient identification: yes ?? Responsible alliance party for transporting specimen(s) to lab determined: yes ?? us Geo Palacios MD IN CLINIC/BEDSIDE ORDERABL ES Final Result * CT Head WO Contrast (06/05/2024 5:52 PM ORACLE HRMS CONSULTANT) Anatomical Region Laterality Modality Head and Neck N/A Computed Tomogra phy 06/06/2024 10:4 5 AM ORACLE HRMS CONSULTANT Impressions 06/06/2024 3:08 PM ORACLE HRMS CONSULTANT 1. ??No acute intracranial hemorrhage. 2. ??Brain [...] Maame Ruiz M.D. Narrative 06/06/2024 3:08 PM ORACLE HRMS CONSULTANT EXAMINATION: CT head without contrast HISTORY: History [...] Final Result * Lactate (06/04/2024 8:39 PM ORACLE HRMS CONSULTANT) Lactate 1.8 0.7 - 2.0 mmol/L Blood 06/04/2024 8:39 PM ORACLE HRMS CONSULTANT 06/04/2024 8:51 PM ORACLE HRMS CONSULTANT Rahel Miller MD LAB BLOOD ORDERAB LES Final Result Performing Organization Address City/State/[facility] Co de Phone Number [facility] [place] [address] * Hepatitis C antibody Blood (06/04/2024 8:39 PM ORACLE HRMS CONSULTANT) Hep C Ab Nonreactive Nonreactive Comment:Antibodies to HCV no t detected. Does NOT exclude the possibility of recent exposure to HCV. Current interpretive data was last revised on 22 Blood 06/04/2024 8:39 PM ORACLE HRMS CONSULTANT 06/04/2024 8:51 PM ORACLE HRMS CONSULTANT us Rahel Miller MD LAB MICRO BIOLOGY - GENERAL ORDERABLES Edited Result - Final Performing Organization Address [facility] Co de Phone Number JOE [facility] [email or web address] [address] * (ABNORMAL) Erythrocyte sedimentation rate (06/04/2024 8:36 PM ORACLE HRMS CONSULTANT) Erythrocyte sedimentation rate 22(H) 1 - 15 mm/hr Blood 06/04/2024 8:36 PM ORACLE HRMS CONSULTANT 06/04/2024 8:58 PM ORACLE HRMS CONSULTANT Rahel Miller MD LAB BLOOD ORDERAB LES Final Result Performing Organization Address [facility] de Phone Number JOE [email or web address] [address] * CRP (acute phase) (06/04/2024 8:36 PM ORACLE HRMS CONSULTANT) Pathologist [facility] CRP 9.8 <=10.0 mg/L Blood 06/04/2024 8:36 PM ORACLE HRMS CONSULTANT 06/04/2024 8:46 PM ORACLE HRMS CONSULTANT Rahel Miller MD LAB BLOOD ORDERAB LES Final Result Performing Organization Address [facility] de Phone Number [facility]E [facility] [email or web address] [address] * eGFR (06/04/2024 8:36 PM ORACLE HRMS CONSULTANT) eGFR >90 >=60 mL/min/1. 73 m2 Comment: [...] last reviewed 2021. Blood 06/04/2024 8:36 PM ORACLE HRMS CONSULTANT 06/04/2024 9:17 PM ORACLE HRMS CONSULTANT us Rahel Miller MD LAB BLOOD ORDERAB LES Final Result [facility] Department [email or web address] [address] * (ABNORMAL) RPR Titer Blood (06/04/2024 8:36 PM ORACLE HRMS CONSULTANT) Pathologist [facility] RPR qn 1:32(A) Nonreactive Blood 06/04/2024 8:36 PM ORACLE HRMS CONSULTANT 06/04/2024 8:52 PM ORACLE HRMS CONSULTANT us Rahel Miller MD LAB MICROBIOLOGY - GENERAL ORDERABLES Final Result [facility] [email or web address] [address] * Differential, auto (06/04/2024 8:36 PM ORACLE HRMS CONSULTANT) Neutrophil abs 4.3 1.5 - 6.5 K/cumm Imm gran abs 0.0 0.0 - 0.1 K/cumm [facility] Lymphocyte abs 1.8 0.8 - 3.3 K/cumm [facility] Monocyte abs 0.4 0.2 - 0.8 K/cumm [facility] Eosinophil abs 0.0 0.0 - 0.5 K/cumm [facility] Basophil abs 0.0 0.0 - 0.1 K/cumm [facility] Neutrophil pct 65.9 % [facility] Comment: Interpretive Data Percent cell count reference ranges are not reported, since discordance with absolute values may lead to misinterpretation of CBC data. Current Interpretive Data was last revised on 2017. Imm gran pct 0.6 % [facility] Comment: Interpretive Data Percent cell count reference ranges are not reported, since discordance with absolute values may lead to misinterpretation of CBC data. Current Interpretive Data was last revised on 2017. Lymphocyte pct 27.4 % [facility] Comment: Interpretive Data Percent cell count reference ranges are not reported, since discordance with absolute values may lead to misinterpretation of CBC data. Current Interpretive Data was last revised on 2017. Monocyte pct 5.6 % [facility] Comment: Interpretive Data Percent cell count reference ranges are not reported, since discordance with absolute values may lead to misinterpretation of CBC data. Current Interpretive Data was last revised on 2017. Eosinophil pct 0.3 % [facility] Comment: Interpretive Data Percent cell count reference ranges are not reported, since discordance with absolute values may lead to misinterpretation of CBC data. Current Interpretive Data was last revised on 2017. Basophil pct 0.2 % [facility] Comment: Interpretive Data Percent cell count reference ranges are not reported, since discordance with absolute values may lead to misinterpretation of CBC data. Current Interpretive Data was last revised on 2017. Blood 06/04/2024 8:36 PM ORACLE HRMS CONSULTANT 06/04/2024 8:58 PM ORACLE HRMS CONSULTANT us Rahel Miller MD LAB BLOOD ORDERAB LES Final Result [facility] [place] [address] * Blood culture Blood (06/04/2024 8:36 PM ORACLE HRMS CONSULTANT) Report Final Report: No growth Blood 06/04/2024 8:36 PM ORACLE HRMS CONSULTANT 06/04/2024 8:50 PM ORACLE HRMS CONSULTANT Narrative JOE HAYWARD - 06/09/2024 7:00 AM ORACLE HRMS CONSULTANT From a different site than #1. Collection->Peripheral [...] organism identification may be performed using the x.aiigene Gram-Positive Blood Culture Assay. This assay detects microbial DNA in positive blood culture broth via hybridization of target DNA to capture oligonucleotides on a microarray. This assay has been cleared by the [place] Food and Drug Administration and its performance characteristics have been verified by the [facility]. 5. ?For questions about this culture, contact the Microbiology Laboratory at [phone]. Interpretive data was last revised on 2019. Rahel Miller MD LAB MICROBIOLOGY - GENERAL ORDERABLES Final Result JOE HAYWARD [facility] [place] [address] * (ABNORMAL) RPR Blood (06/04/2024 8:36 PM ORACLE HRMS CONSULTANT) [facility] RPR Reactive(A ) Nonreactive Blood 06/04/2024 8:36 PM ORACLE HRMS CONSULTANT 06/04/2024 8:52 PM ORACLE HRMS CONSULTANT Rahel Miller MD LAB MICROBIOLOGY - GENERAL ORDERABLES Final Result Performing Organization Address [facility] de Phone Number [facility] [place] [address] * Cryptococcal Antigen, Serum Blood (06/04/2024 8:36 PM ORACLE HRMS CONSULTANT) [facility] Cryptococcus ag, Serum Negative Negative Comment: The cryptococcal antigen test was performed using the [employer] CrAg Lateral Flow Assay. This assay is [...] last revised 2018. Blood 06/04/2024 8:36 PM ORACLE HRMS CONSULTANT 06/04/2024 8:52 PM ORACLE HRMS CONSULTANT Rahel Miller MD LAB MICROBIOLOGY - GENERAL ORDERABLES Final Result Performing Organization Address [facility] de Phone Number [facility] [place] [address] * (ABNORMAL) Comprehensive metabolic panel (06/04/2024 8:36 PM ORACLE HRMS CONSULTANT) [facility] Sodium 136 135 - 145 mmol/L Potassium, pl 3.7 3.3 - 4.9 mmol/L [facility] Chloride 104 97 - 110 mmol/L [facility] CO2 25 22 - 32 mmol/L [facility] Anion gap 7 2 - 15 mmol/L [facility] BUN 11 6 - 25 mg/dL [facility] Creatinine 1.10 0.80 - 1.30 mg/dL [facility] Glucose 94 70 - 199 mg/dL [facility] Comment: Interpretive Data Fasting glucose >/= 126 [...] 2022. Calcium 8.8 8.5 - 10.3 mg/dL [facility] Bilirubin, total 0.2 0.1 - 1.2 mg/dL [facility] Protein, pl 7.5 6.5 - 8.5 g/dL [facility] Albumin 3.4(L) 3.5 - 5.0 g/dL [facility] Alk phos 73 40 - 130 Units/L [facility] ALT 16 7 - 55 Units/L [facility] AST 21 10 - 50 Units/L [facility] Blood 06/04/2024 8:36 PM ORACLE HRMS CONSULTANT 06/04/2024 8:46 PM ORACLE HRMS CONSULTANT Rahel Miller MD LAB BLOOD ORDERAB LES Final Result [facility] [place] [address] * (ABNORMAL) CBC with auto differential (06/04/2024 8:36 PM ORACLE HRMS CONSULTANT) Pathologist [facility] WBC 6.6 3.8 - 9.9 K/cumm Hgb 12.4(L) 13.0 - 17.5 g/dL [facility] Hct 39.1 38.9 - 50.3 % [facility] Plt 283 150 - 400 K/cumm [facility] MPV 9.8 9.1 - 12.3 fL [facility] RBC 4.90 4.30 - 5.80 M/cumm [facility] MCV 79.8(L) 81.3 - 96.4 fL [facility] MCH 25.3(L) 27.1 - 33.3 pg [facility] MCHC 31.7(L) 32.3 - 35.7 g/dL [facility] RDW CV 14.6 11.1 - 14.9 % [facility] RDW SD 42.7 35.7 - 48.1 fL [facility] NRBC abs 0.00 0.00 - 0.01 K/cumm [facility] Blood 06/04/2024 8:36 PM ORACLE HRMS CONSULTANT 06/04/2024 8:58 PM ORACLE HRMS CONSULTANT us Rahel Miller MD LAB BLOOD ORDERAB LES Final Result Performing Organization Address [facility] Co de Phone Number [facility] [place] [address] * Hepatitis B Surface Antigen Blood (06/04/2024 8:36 PM ORACLE HRMS CONSULTANT) HepBsAg Nonreactive Nonreactive Blood 06/04/2024 8:36 PM ORACLE HRMS CONSULTANT 06/04/2024 8:52 PM ORACLE HRMS CONSULTANT us Rahel Miller MD LAB MICROBIOLOGY - GENERAL ORDERABLES Final Result Performing Organization Address City/[facility] Co de Phone Number [facility] [email or web address] [place] [address] * Hepatitis B core antibody, total Blood (06/04/2024 8:36 PM ORACLE HRMS CONSULTANT) Hep B core IgG/IgM Nonreactive Nonreactive Blood 06/04/2024 8:36 PM ORACLE HRMS CONSULTANT 06/04/2024 8:52 PM ORACLE HRMS CONSULTANT us Rahel Miller MD LAB MICROBIOLOGY - GENERAL ORDERABLES Final Result Performing Organization Address [facility] Co de Phone Number JOE [facility] [place] [address] * (ABNORMAL) CMV, IgG and IgM antibodies Blood (06/04/2024 8:36 PM ORACLE HRMS CONSULTANT) CMV IgG Positive(A) Negative Comment: Interpretive Data [...] recent CMV infection. CMV IgM Negative Negative [facility] Comment: Interpretive Data Negative - Negative CMV [...] reactivation, or reinfection). Blood 06/04/2024 8:36 PM ORACLE HRMS CONSULTANT 06/04/2024 8:52 PM ORACLE HRMS CONSULTANT Rahel Miller MD LAB MICROBIOLOGY - GENERAL ORDERABLES Final Result Performing Organization Address [facility] Co de Phone Number JOE [facility] [place] [address] * (ABNORMAL) Cytomegalovirus (CMV) DNA PCR, quantitative Blood (06/04/2024 8:36 PM ORACLE HRMS CONSULTANT) Pathologist [facility] CMV DNA Detected( A) [facility] Comment: Interpretive Data: The quantifiable range of this assay is 34 IUnits/mL to 10,000,000 IUnits/mL (1.53 log IUnits/mL to 7.0 log IUnits/mL). Testing was performed by the NEERU [id number] CMV Test ([employer] Testing performed at [facility]. Current interpretive data was last revised on 2021. CMV DNA IU/mL 36 IUnits/mL [facility] CMV DNA log IU/mL 1.56 log IUnits/mL [facility] Blood 06/04/2024 8:36 PM ORACLE HRMS CONSULTANT 06/04/2024 9:05 PM ORACLE HRMS CONSULTANT Rahel Miller MD LAB MICROBIOLOGY - GENERAL ORDERABLES Final Result [facility] [place] [address] [facility] * eGFR (06/04/2024 6:10 AM ORACLE HRMS CONSULTANT) eGFR >90 >=60 mL/min/1. 73 m2 Comment: [...] last reviewed 2021. Blood 06/04/2024 6:10 AM ORACLE HRMS CONSULTANT 06/04/2024 6:37 AM ORACLE HRMS CONSULTANT us Olegario Gonsales MD LAB BLOOD ORDERABLES Fi nal Result [facility] [place] [address] * Differential, auto (06/04/2024 6:10 AM ORACLE HRMS CONSULTANT) Neutrophil abs 2.6 1.5 - 6.5 K/cumm Imm gran abs 0.0 0.0 - 0.1 K/cumm [facility] Lymphocyte abs 1.6 0.8 - 3.3 K/cumm [facility] Monocyte abs 0.3 0.2 - 0.8 K/cumm [facility] Eosinophil abs 0.1 0.0 - 0.5 K/cumm [facility] Basophil abs 0.0 0.0 - 0.1 K/cumm [facility] Neutrophil pct 56.0 % [facility] Comment: Interpretive Data Percent cell count reference ranges are not reported, since discordance with absolute values may lead to misinterpretation of CBC data. Current Interpretive Data was last revised on 2017. Imm gran pct 0.2 % [facility] Comment: Interpretive Data Percent cell count reference ranges are not reported, since discordance with absolute values may lead to misinterpretation of CBC data. Current Interpretive Data was last revised on 2017. Lymphocyte pct 35.4 % [facility] Comment: Interpretive Data Percent cell count reference ranges are not reported, since discordance with absolute values may lead to misinterpretation of CBC data. Current Interpretive Data was last revised on 2017. Monocyte pct 6.7 % [facility] Comment: Interpretive Data Percent cell count reference ranges are not reported, since discordance with absolute values may lead to misinterpretation of CBC data. Current Interpretive Data was last revised on 2017. Eosinophil pct 1.3 % [facility] Comment: Interpretive Data Percent cell count reference ranges are not reported, since discordance with absolute values may lead to misinterpretation of CBC data. Current Interpretive Data was last revised on 2017. Basophil pct 0.4 % [facility] Comment: Interpretive Data Percent cell count reference ranges are not reported, since discordance with absolute values may lead to misinterpretation of CBC data. Current Interpretive Data was last revised on 2017. Blood 06/04/2024 6:10 AM ORACLE HRMS CONSULTANT 06/04/2024 6:29 AM ORACLE HRMS CONSULTANT Olegario Gonsales MD LAB BLOOD ORDERABLES Fi nal Result Performing Organization Address City/[facility] Co de Phone Number [facility] [email or web address] [address] * Lactate (06/04/2024 6:10 AM ORACLE HRMS CONSULTANT) [facility] Lactate 2.0 0.7 - 2.0 mmol/L Blood 06/04/2024 6:10 AM ORACLE HRMS CONSULTANT 06/04/2024 6:29 AM ORACLE HRMS CONSULTANT Olegario Gonsales MD LAB BLOOD ORDERABLES Fi nal Result Performing Organization Address [facility] de Phone Number [facility] [email or web address] [address] * Comprehensive metabolic panel (06/04/2024 6:10 AM ORACLE HRMS CONSULTANT) Pathologist [facility] Sodium 138 135 - 145 mmol/L Potassium, pl 3.7 3.3 - 4.9 mmol/L [facility] Chloride 105 97 - 110 mmol/L [facility] CO2 24 22 - 32 mmol/L [facility] Anion gap 9 2 - 15 mmol/L [facility] BUN 8 6 - 25 mg/dL [facility] Creatinine 0.97 0.80 - 1.30 mg/dL [facility] Glucose 103 70 - 199 mg/dL [facility] Comment: Interpretive Data Fasting glucose >/= 126 [...] 2022. Calcium 8.7 8.5 - 10.3 mg/dL [facility] Bilirubin, total 0.2 0.1 - 1.2 mg/dL [facility] Protein, pl 7.5 6.5 - 8.5 g/dL [facility] Albumin 3.5 3.5 - 5.0 g/dL [facility] Alk phos 73 40 - 130 Units/L [facility] ALT 19 7 - 55 Units/L [facility] AST 17 10 - 50 Units/L [facility] Blood 06/04/2024 6:10 AM ORACLE HRMS CONSULTANT 06/04/2024 6:37 AM ORACLE HRMS CONSULTANT Olegario Gonsales MD LAB BLOOD ORDERABLES Fi nal Result [facility] [place] [address] * (ABNORMAL) CBC with auto differential (06/04/2024 6:10 AM ORACLE HRMS CONSULTANT) Pathologist [facility] WBC 4.6 3.8 - 9.9 K/cumm Hgb 12.9(L) 13.0 - 17.5 g/dL [facility] Hct 41.2 38.9 - 50.3 % [facility] Plt 292 150 - 400 K/cumm [facility] MPV 9.2 9.1 - 12.3 fL [facility] RBC 5.18 4.30 - 5.80 M/cumm [facility] MCV 79.5(L) 81.3 - 96.4 fL [facility] MCH 24.9(L) 27.1 - 33.3 pg [facility] MCHC 31.3(L) 32.3 - 35.7 g/dL [facility] RDW CV 14.9 11.1 - 14.9 % [facility] RDW SD 43.5 35.7 - 48.1 fL [facility] NRBC abs 0.00 0.00 - 0.01 K/cumm [facility] Blood 06/04/2024 6:10 AM ORACLE HRMS CONSULTANT 06/04/2024 6:29 AM ORACLE HRMS CONSULTANT Olegario Gonsales MD LAB BLOOD ORDERABLES Fi nal Result Performing Organization Address [facility] Co de Phone Number [facility] [email or web address] [address] * POCT glucose (06/03/2024 5:26 AM ORACLE HRMS CONSULTANT) Glucose, POC 77 70 - 199 mg/dL Blood 06/03/2024 5:26 AM ORACLE HRMS CONSULTANT 06/03/2024 5:26 AM ORACLE HRMS CONSULTANT Olegario Gonsales MD LAB POCT ORDERABLES - D EVICE Final Result Performing Organization Address [facility] de Phone Number [facility] [email or web address] [address] * POCT ketone, blood (06/02/2024 7:46 PM ORACLE HRMS CONSULTANT) Ketones, Blood, POC 0.1 0.0 - 0.5 mmol/L Blood 06/02/2024 7:46 PM ORACLE HRMS CONSULTANT 06/02/2024 7:46 PM ORACLE HRMS CONSULTANT Olegario Gonsales MD LAB POCT ORDERABLES - D EVICE Final Result Performing Organization Address [facility] [place] [address] * Stool culture Stool Rectum (06/02/2024 7:17 PM ORACLE HRMS CONSULTANT) Direct Specimen Exam Shiga Toxin Testing: Antigen detection assay for Shiga-toxin NEGATIVE for Shiga Toxin 1 and Shiga Toxin 2. Report Final Report: No growth of enteric bacterial pathogens [facility] Stool (Rectum) 06/02/2024 7: 17 PM ORACLE HRMS CONSULTANT 06/02/2024 7:23 PM ORACLE HRMS CONSULTANT Narrative JOE HAYWARD - 06/06/2024 8:35 AM ORACLE HRMS CONSULTANT Specimen received in a sterile container. Testing performed by [facility] ([phone]). Routine stool cultures include procedures to detect Salmonella, Shigella, Edwardsiella, Aeromonas, Pleisiomonas, Campylobacter, Yersinia, E. coli O157, and Shiga-like toxins. ?? Vibrio is cultured only upon special request. ??If Vibrio is suspected, please call the laboratory at [phone]. Interpretive data was last updated November 27, 2016. us Pooja Molina NP LAB MICROBIOLOGY - GENERA L ORDERABLES Final Result [facility] [place] [address] * (ABNORMAL) Lipid panel (06/02/2024 5:22 PM ORACLE HRMS CONSULTANT) Cholesterol 110 30 - 199 mg/dL Comment: [...] revised on 2018. Triglycerides 51 <=149 mg/dL [facility] Comment: Hemolyzed; result may be falsely elevated [...] revised on 2018. HDL 33(L) >=40 mg/dL [facility] Comment: Interpretive Data Ages < or = [...] 2018. LDL, calculated 65 <=129 mg/dL [facility] Comment: Interpretive Data Ages < or = [...] NCEP Expert Panel. Circulation 2004;110:227 3. Landon M et al. PARESH Cardiol. 2020 November 20;5(5):540-548. doi: [email or web address] Current Interpretive Data was last revised on 2024. Non-HDL Cholesterol 77 mg/dL [facility] Comment: Interpretive Data Ages < or = [...] last revised on 2018. Chol/HDL ratio 3 [facility] Blood 06/02/2024 5:22 PM ORACLE HRMS CONSULTANT 06/02/2024 5:42 PM ORACLE HRMS CONSULTANT us Olegario Gonsales MD LAB BLOOD ORDERABLES Fi nal Result [facility] Department of Laboratories [place], [place] [id number] * eGFR (06/02/2024 5:22 PM ORACLE HRMS CONSULTANT) eGFR >90 >=60 mL/min/1. 73 m2 Comment: [...] last reviewed 2021. Blood 06/02/2024 5:22 PM ORACLE HRMS CONSULTANT 06/02/2024 5:42 PM ORACLE HRMS CONSULTANT Pooja Molina COND[employer]ER WINDER LAB BLOOD ORDERABLES Antonina l Result [facility] Department of Laboratories [place], [place] [id number] * Osmolality, blood (06/02/2024 5:22 PM ORACLE HRMS CONSULTANT) Pathologist [facility] Osmo 285 275 - 300 mOsm/kg Blood 06/02/2024 5:22 PM ORACLE HRMS CONSULTANT 06/02/2024 5:42 PM ORACLE HRMS CONSULTANT us Pooja Moore Tracy [employer]ER LAB BLOOD ORDERABLES Antonina l Result [facility] [place] [address] * (ABNORMAL) Lactate (06/02/2024 5:22 PM ORACLE HRMS CONSULTANT) [facility] Lactate 2.8(H) 0.7 - 2.0 mmol/L Blood 06/02/2024 5:22 PM ORACLE HRMS CONSULTANT 06/02/2024 5:41 PM ORACLE HRMS CONSULTANT Pooja Moore Tracy LAB BLOOD ORDERABLES Antonina l Result Performing Organization Address [facility] de Phone Number [facility] Department [place] [address] * (ABNORMAL) Basic metabolic panel (06/02/2024 5:22 PM ORACLE HRMS CONSULTANT) [facility] Sodium 138 135 - 145 mmol/L Potassium, pl See Comment 3.3 - 4.9 mmol/L [facility] Comment:Credited; Hemolyzed Specimen Chloride 107 97 - 110 mmol/L [facility] CO2 24 22 - 32 mmol/L [facility] Anion gap 7 2 - 15 mmol/L [facility] BUN 11 6 - 25 mg/dL [facility] Creatinine 0.76(L) 0.80 - 1.30 mg/dL [facility] Glucose 69(L) 70 - 199 mg/dL [facility] Comment: Interpretive Data Fasting glucose >/= 126 [...] 2022. Calcium 8.8 8.5 - 10.3 mg/dL [facility] Blood 06/02/2024 5:22 PM ORACLE HRMS CONSULTANT 06/02/2024 5:42 PM ORACLE HRMS CONSULTANT Pooja Molina NP LAB BLOOD ORDERABLES Antonina l Result Performing Organization Address City/[facility]/ZIP Co de Phone Number [facility] Department [place] [address] * (ABNORMAL) Blood gas, venous (06/02/2024 3:44 PM ORACLE HRMS CONSULTANT) pH, Venous 7.25(L) 7.32 - 7.43 PCO2, Venous 43 40 - 50 mmHg [facility] PO2, Venous 33 mmHg [facility] Comment: Interpretive Data No Reference Range Established Current Interpretive Data was last revised on 2017. HCO3 Venous, Calculated 20 20 - 30 mmol/L [facility] BE, venous -8 mmol/L [facility] Comment: Interpretive Data No Reference Range Established Current Interpretive Data was last revised on 2017. Blood 06/02/2024 3:44 PM ORACLE HRMS CONSULTANT 06/02/2024 3:49 PM ORACLE HRMS CONSULTANT Result [facility] Pooja Molina NP LAB BLOOD ORDERABLES Antonina l Result Performing Organization Address [facility] Co de Phone Number [facility] Department [place] [address] * POCT glucose (06/02/2024 3:25 PM ORACLE HRMS CONSULTANT) Glucose, POC 106 70 - 199 mg/dL Blood 06/02/2024 3:25 PM ORACLE HRMS CONSULTANT 06/02/2024 3:25 PM ORACLE HRMS CONSULTANT Calvin Sainz MD LAB POCT ORDERABLES - DEVICE Final Result Performing Organization Address City/[facility] Co de Phone Number [facility] [place] [address] * ECG 12-LEAD (06/02/2024 3:03 PM ORACLE HRMS CONSULTANT) Narrative [facility] - 06/02/2024 3:03 PM ORACLE HRMS CONSULTANT Maris Kidd MD ? 06/02/2024 ??3:05 PM [...] the ED Maris Kidd MD Resident 06/02/24 1736 Maris Kidd MD ECG ORDERABLES Final Result [facility] * POCT glucose (06/02/2024 2:26 PM ORACLE HRMS CONSULTANT) Glucose, POC 73 70 - 199 mg/dL Blood 06/02/2024 2:26 PM ORACLE HRMS CONSULTANT 06/02/2024 2:26 PM ORACLE HRMS CONSULTANT us Calvin Sainz MD LAB POCT ORDERABLES - DEVICE Final Result Performing Organization Address City/[facility] Co de Phone Number [facility] [place] [address] * (ABNORMAL) POCT glucose (06/02/2024 1:50 PM ORACLE HRMS CONSULTANT) Glucose, POC 56(L) 70 - 199 mg/dL Blood 06/02/2024 1:50 PM ORACLE HRMS CONSULTANT 06/02/2024 1:50 PM ORACLE HRMS CONSULTANT us Calvin Sainz MD LAB POCT ORDERABLES - DEVICE Final Result Performing Organization Address [facility] de Phone Number [facility] [place] [address] * (ABNORMAL) POCT glucose (06/02/2024 1:13 PM ORACLE HRMS CONSULTANT) Glucose, POC 45(C) 70 - 199 mg/dL Comment:Glu2: Glucose comment 1 Glu2: [facility] Blood 06/02/2024 1:13 PM ORACLE HRMS CONSULTANT 06/02/2024 1:13 PM ORACLE HRMS CONSULTANT us Jaci Menon MD LAB POCT ORDERABLES - DEVIC E Final Result Performing Organization Address [facility] Co de Phone Number [facility] [place] [address] * (ABNORMAL) Lactate (06/02/2024 12:29 PM ORACLE HRMS CONSULTANT) Lactate 2.6(H) 0.7 - 2.0 mmol/L Blood 06/02/2024 12:2 9 PM ORACLE HRMS CONSULTANT 06/02/2024 1:00 PM ORACLE HRMS CONSULTANT Result [facility] Maris Kidd MD LAB BLOOD ORDERABLES Final Re sult Performing Organization Address [facility] Co de Phone Number [facility] [place] [address] * (ABNORMAL) Blood gas, venous (06/02/2024 12:29 PM ORACLE HRMS CONSULTANT) [facility] pH, Venous 7.25(L) 7.32 - 7.43 PCO2, Venous 58(H) 40 - 50 mmHg [facility] PO2, Venous 31 mmHg [facility] Comment: Interpretive Data No Reference Range Established Current Interpretive Data was last revised on 2017. HCO3 Venous, Calculated 26 20 - 30 mmol/L [facility] BE, venous -3 mmol/L [facility] Comment: Interpretive Data No Reference Range Established Current Interpretive Data was last revised on 2017. Blood 06/02/2024 12:2 9 PM ORACLE HRMS CONSULTANT 06/02/2024 12:44 PM ORACLE HRMS CONSULTANT Result [facility] Maris Kidd MD LAB BLOOD ORDERABLES Final Re sult Performing Organization Address [facility] Co de Phone Number [facility] Department [place] [address] * Troponin I high-sensitivity 2-hour (06/02/2024 11:13 AM ORACLE HRMS CONSULTANT) Pathologist [facility] Trop I hs <4 <=35 ng/L Comment: Interpretive Data For further hscTnI resources including the diagnostic algorithm and an aid in interpretation, copy and paste this link: [email or web address]/[email or web address] Current Interpretive Data last revised 2020. Trop I hs delta 0 ng/L [facility] Trop I hs interp Insignificant [facility] Blood 06/02/2024 11:1 3 AM ORACLE HRMS CONSULTANT 06/02/2024 11:37 AM ORACLE HRMS CONSULTANT Calvin Sainz MD LAB BLOOD ORDERABLES F inal Result Performing Organization Address [facility] de Phone Number [facility] [place] [address] * (ABNORMAL) Urinalysis, microscopic only (06/02/2024 10:28 AM ORACLE HRMS CONSULTANT) WBC, ur 0-5 0 - 5 /HPF RBC, ur 0-2 0 - 2 /HPF [facility] Epithelial cells, squamous, ur 1-5 0 - 5 /HPF [facility] Bacteria, ur Trace(A) [facility] Mucous, ur Present(A) [facility] Hyaline casts, ur 1-5 0 - 10 /LPF [facility] Culture Reflex Comment Reflex conditions for urine culture (WBC >10) not met. [facility] Urine 06/02/2024 10:2 8 AM ORACLE HRMS CONSULTANT 06/02/2024 10:32 AM ORACLE HRMS CONSULTANT Calvin Sainz MD LAB URINE ORDERABLES F inal Result Performing Organization Address [facility] de Phone Number [facility] [place] [address] * (ABNORMAL) Urinalysis reflex to microscopic and culture Urine (06/02/2024 10:28 AM ORACLE HRMS CONSULTANT) Color, ur Straw Yellow Clarity, ur Clear Clear [facility] Specific gravity, ur 1.037(H) 1.003 - 1.030 [facility] pH, urine 6.0 [facility] Comment: Interpretive Data ? Urine pH is affected by diet, medications, systemic acid-base disturbances, and renal tubular function. ??pH may affect urinary stone formation. ??For example, urine pH below 6.0 may help reduce the tendency for calcium phosphate stones and pH greater than 6.0 may reduce the tendency for uric acid stone formation. Source: [facility] Current Interpretive Data was last revised on 2017 Protein, ur ql 1+(A) Negative [facility] Glucose, ur ql Negative Negative [facility] Ketones, ur Negative Negative [facility] Bilirubin, ur Negative Negative [facility] Blood, ur Negative Negative [facility] Urobilinogen, ur <2.0 <2.0 mg/dL [facility] Nitrite, ur Negative Negative [facility] Leukocyte esterase, ur Negative Negative [facility] UA reflex comment Reflex to microscopic UA will be performed. [facility] Urine 06/02/2024 10:2 8 AM ORACLE HRMS CONSULTANT 06/02/2024 10:32 AM ORACLE HRMS CONSULTANT us Calvin Sainz MD LAB MICROBIOLOGY - GEN ERAL ORDERABLES Final Result [facility] [place] [address] * (ABNORMAL) Drugs of Abuse Screen, Urine without Confirmation (06/02/2024 10:28 AM ORACLE HRMS CONSULTANT) Amphetamine, ur Screen Positive, presumptive (A) CutOff 500ng/mL Comment: Interpretive Data - Amphetamines: ??Samples containing greater than 500 ng/mL d-methamphetamine ??or other cross-reacting amphetamine compounds are reported as positive. ??Amphetamine immunoassays are subject to significant false positive rates due to cross-reactivity of non-amphetamine drugs. Confirmatory testing required for definitive results. Current Interpretive Data was last reviewed 2023. Barbiturates, ur Not Detected CutOff 200ng/mL [facility] Comment: Interpretive Data - Barbiturates: ??Samples containing greater than 200 ng/mL secobarbital or other cross-reacting barbiturate compounds are reported as positive. ??False positive and false negative results are possible. Confirmatory testing required for definitive results. Current Interpretive Data was last reviewed 2023. Benzodiazepines, ur Not Detected CutOff 100ng/mL [facility] Comment: Interpretive Data - Benzodiazepines: ??Samples containing greater than 100 ng/mL nordiazepam or other cross-reacting compounds are reported as positive. False positive and false negative results are possible. Confirmatory testing required for definitive results. Current Interpretive Data was last reviewed 2023. Cannabinoids, ur Not Detected CutOff 50 ng/mL [facility] Comment: Interpretive Data - Cannabinoids: ??Samples containing greater than 50 ng/mL delta-9 THC -COOH or other cross-reacting compounds are reported as positive. ??False positive and false negative results are possible. ??Confirmatory testing required for definitive results. Current Interpretive Data was last reviewed 2023. Cocaine, ur Screen Positive, presumptive (A) CutOff 150ng/mL [facility] Comment: Interpretive Data - Cocaine: ??Samples containing greater than 150 ng/mL benzoylecgonine or other cross-reacting compounds are reported as positive. False positive and false negative results are possible. Confirmatory testing required for definitive results. Current Interpretive Data was last reviewed 2023. Fentanyl, Ur Not Detected CutOff 5 ng/mL [facility] Comment: Interpretive Data - Fentanyl: ?? Samples containing greater than 5 ng/mL norfentanyl, fentanyl, or other cross-reacting fentanyl compounds are reported as positive. False positive and false negative results are possible. Confirmatory testing required for definitive results. Current Interpretive Data was last reviewed 2023. Methadone, ur Not Detected CutOff 300ng/mL [facility] Comment: Interpretive Data - Methadone: ??Samples containing greater than 300 ng/mL d,l-methadone or other cross-reacting compounds are reported as positive. ??False positive and false negative results are possible. Confirmatory testing required for definitive results. Current Interpretive Data was last reviewed 2023. Opiates, ur Not Detected CutOff 300ng/mL [facility] Comment: Interpretive Data - Opiates: ??Samples containing greater than 300 ng/mL morphine or other cross-reacting compounds are reported as positive. ??False positive and false negative results are possible. Confirmatory testing required for definitive results. Current Interpretive Data was last reviewed 2023. Oxycodone, ur Not Detected CutOff 100ng/mL [facility] Comment: Interpretive Data - Oxycodone: ??Samples containing greater than 100 ng/mL oxycodone or other cross-reacting compounds are reported as ??positive. ??False positive and false negative results are possible. Confirmatory testing required for definitive results. Current Interpretive Data was last reviewed 2023. Phencyclidine, ur Not Detected CutOff 25 ng/mL [facility] Comment: Interpretive Data - Phencyclidine: ??Samples containing greater than 25 ng/mL phencyclidine or other cross-reacting compounds are reported as positive. ??False positive and false negative results are possible. Confirmatory testing required for definitive results. Current Interpretive Data was last reviewed 2023. Urine Creatinine 243 mg/dL [facility] Comment: Interpretive Data Urine Creatinine: < 10 mg/dL is extremely dilute = or > 10 but < 20 mg/dL is dilute = or > 20 mg/dL is normal Current Interpretive Data was last revised on 2017. Urine 06/02/2024 10:2 8 AM ORACLE HRMS CONSULTANT 06/02/2024 10:35 AM ORACLE HRMS CONSULTANT Narrative [facility] - 06/02/2024 11:10 AM ORACLE HRMS CONSULTANT Drug of Abuse screening is performed by immunoassay for medical purposes only. ??This is not to be used for Pain Management purposes. us Calvin Sainz MD LAB URINE ORDERABLES F inal Result [facility] [place] [address] * XR Chest 1 Vw Portable (06/02/2024 10:22 AM ORACLE HRMS CONSULTANT) Anatomical Region Laterality Modality Body, Chest N/A Computed Radiogr aphy 06/02/2024 10:3 7 AM ORACLE HRMS CONSULTANT Impressions 06/02/2024 10:37 AM ORACLE HRMS CONSULTANT Comparison is made to prior study of 04/28/2024. In the interval, no change. The lungs are clear. Specifically, no pulmonary edema or pneumonia. No pleural effusion or pneumothorax. Heart size and mediastinal contour are normal. Electronically signed by: Tanner Lees M.D. Narrative 06/02/2024 10:37 AM ORACLE HRMS CONSULTANT EXAMINATION: 1 view chest radiograph Procedure Note [...] Result * ECG 12-LEAD (06/02/2024 9:37 AM ORACLE HRMS CONSULTANT) Narrative [facility] - 06/02/2024 9:37 AM ORACLE HRMS CONSULTANT Calvin Sainz MD ? 06/02/2024 ??9:37 AM [...] ECG ORDERABLES Final Result Performing Organization Address City/[facility] Co de Phone Number [facility] * (ABNORMAL) T-helper cells (CD4) count (06/02/2024 9:35 AM ORACLE HRMS CONSULTANT) [facility] CD4 pct 10(L) 31 - 64 % CD4 Absolute 169(L) 365 - 1,294 cells/mcL [facility] Blood 06/02/2024 9:35 AM ORACLE HRMS CONSULTANT 06/02/2024 9:56 AM ORACLE HRMS CONSULTANT us Calvin Sainz MD LAB BLOOD ORDERABLES F inal Result Performing Organization Address [facility] de Phone Number [facility] [place] [address] * (ABNORMAL) Creatine kinase (CK), total (06/02/2024 9:35 AM ORACLE HRMS CONSULTANT) [facility] CK 361(H) 40 - 300 Units/L Blood 06/02/2024 9:35 AM ORACLE HRMS CONSULTANT 06/02/2024 9:53 AM ORACLE HRMS CONSULTANT us Jaci Menon MD LAB BLOOD ORDERABLES Final Result Performing Organization Address [facility] Co de Phone Number [facility] [place] [address] * Manual Differential (06/02/2024 9:35 AM ORACLE HRMS CONSULTANT) [facility] Differential Manual Cells Counted 115 [facility] Neutrophil abs 1.8 1.5 - 6.5 K/cumm [facility] Imm gran abs 0.0 0.0 - 0.1 K/cumm [facility] Lymphocyte abs 1.7 0.8 - 3.3 K/cumm [facility] Monocyte abs 0.2 0.2 - 0.8 K/cumm [facility] Eosinophil abs 0.1 0.0 - 0.5 K/cumm [facility] Neutrophil pct 47.0 % [facility] Comment: Interpretive Data Percent cell count reference ranges are not reported, since discordance with absolute values may lead to misinterpretation of CBC data. Current Interpretive Data was last revised on 2017. Lymphocyte pct 36.5 % [facility] Comment: Interpretive Data Percent cell count reference ranges are not reported, since discordance with absolute values may lead to misinterpretation of CBC data. Current Interpretive Data was last revised on 2017. Monocyte pct 5.2 % [facility] Comment: Interpretive Data Percent cell count reference ranges are not reported, since discordance with absolute values may lead to misinterpretation of CBC data. Current Interpretive Data was last revised on 2017. Eosinophil pct 3.5 % [facility] Comment: Interpretive Data Percent cell count reference ranges are not reported, since discordance with absolute values may lead to misinterpretation of CBC data. Current Interpretive Data was last revised on 2017. Variant lymph pct 7.8 % [facility] Blood 06/02/2024 9:35 AM ORACLE HRMS CONSULTANT 06/02/2024 9:56 AM ORACLE HRMS CONSULTANT us Calvin Sainz MD LAB BLOOD ORDERABLES F inal Result [facility] Department [place] [address] * eGFR (06/02/2024 9:35 AM ORACLE HRMS CONSULTANT) eGFR >90 >=60 mL/min/1. 73 m2 Comment: [...] last reviewed 2021. Blood 06/02/2024 9:35 AM ORACLE HRMS CONSULTANT 06/02/2024 9:53 AM ORACLE HRMS CONSULTANT us Calvin Sainz MD LAB BLOOD ORDERABLES F inal Result Performing Organization Address City/[facility]/ZIP Co de Phone Number [facility] [place] [address] * (ABNORMAL) Sepsis Lactate w/ Reflex (06/02/2024 9:35 AM ORACLE HRMS CONSULTANT) Sepsis Lactate 2.3(H) 0.7 - 2.0 mmol/L Blood 06/02/2024 9:35 AM ORACLE HRMS CONSULTANT 06/02/2024 9:43 AM ORACLE HRMS CONSULTANT us Calvin Sainz MD LAB BLOOD ORDERABLES F inal Result Performing Organization Address City/[facility] Co de Phone Number [facility] [email or web address] [place] [address] * Thyroid Function [place] (06/02/2024 9:35 AM ORACLE HRMS CONSULTANT) TSH 2.22 0.30 - 4.20 mcIUnit/mL Blood 06/02/2024 9:35 AM ORACLE HRMS CONSULTANT 06/02/2024 9:53 AM ORACLE HRMS CONSULTANT Calvin Sainz MD LAB BLOOD ORDERABLES F inal Result Performing Organization Address [facility] de Phone Number [facility] [place] [address] * Troponin I high-sensitivity series (baseline, 2hr, 4hr, 6hr) (06/02/2024 9:35 AM ORACLE HRMS CONSULTANT) Pathologist [facility] Trop I hs <4 <=35 ng/L Comment: Interpretive Data For further hscTnI resources including the diagnostic algorithm and an aid in interpretation, copy and paste this link: [email or web address] Current Interpretive Data last revised 2020. Blood 06/02/2024 9:35 AM ORACLE HRMS CONSULTANT 06/02/2024 9:53 AM ORACLE HRMS CONSULTANT Calvin aSinz MD LAB BLOOD ORDERABLES F inal Result Performing Organization Address [facility] de Phone Number [facility] Department [place] [address] * Salicylate level (06/02/2024 9:35 AM ORACLE HRMS CONSULTANT) Pathologist [facility] Salicylate <9.0 <=9.0 mg/dL Comment: Interpretive Data Toxic: 30 mg/dL or greater. Current interpretive data was last revised 2023. Blood 06/02/2024 9:35 AM ORACLE HRMS CONSULTANT 06/02/2024 9:53 AM ORACLE HRMS CONSULTANT Calvin Sainz MD LAB BLOOD ORDERABLES F inal Result Performing Organization Address [facility] de Phone Number [email or web address] [email or web address] [address] * aPTT (06/02/2024 9:35 AM ORACLE HRMS CONSULTANT) aPTT 34 28 - 38 sec Comment: Interpretive Data Heparin therapeutic range: 66.0 - 100.0 seconds. Range based on correlation with therapeutic heparin activity range of 0.3 - 0.7 Units/mL. Current interpretive data was last revised on 2023. Blood 06/02/2024 9:35 AM ORACLE HRMS CONSULTANT 06/02/2024 9:54 AM ORACLE HRMS CONSULTANT Calvin Sainz MD LAB BLOOD ORDERABLES F inal Result Performing Organization Address [facility] [place] [address] * Protime-INR (06/02/2024 9:35 AM ORACLE HRMS CONSULTANT) PT 11.2 9.7 - 13.0 sec INR 1.04 0.90 - 1.20 [facility] Comment: Interpretive data Oral anticoagulant therapeutic ranges: Venous thromboembolism prophylaxis or treatment: 2.0-3.0 CARDIOLOGY Standard range: 2.0-3.0 High-intensity range: 2.5-3.5 Refer to indication-specific guidelines for appropriate target ranges for prosthetic heart valve replacement. Current interpretive data was last revised on 2019. Blood 06/02/2024 9:35 AM ORACLE HRMS CONSULTANT 06/02/2024 9:54 AM ORACLE HRMS CONSULTANT Calvin Sainz MD LAB BLOOD ORDERABLES F inal Result Performing Organization Address [facility] Co de Phone Number [email or web address] [address] * Ethanol (06/02/2024 9:35 AM ORACLE HRMS CONSULTANT) Ethanol <10 <=10 mg/dL Comment: Interpretive Data Legal limit of intoxication > or = 80 mg/dL Levels > or = 400 mg/dL are potentially TOXIC. Current interpretive data was last revised on 2018. Blood 06/02/2024 9:35 AM ORACLE HRMS CONSULTANT 06/02/2024 9:53 AM ORACLE HRMS CONSULTANT Calvin Sainz MD LAB BLOOD ORDERABLES F inal Result Performing Organization Address [facility] de Phone Number [facility] [email or web address] [address] * (ABNORMAL) Hepatic function panel (06/02/2024 9:35 AM ORACLE HRMS CONSULTANT) Bilirubin, total 0.2 0.1 - 1.2 mg/dL Bilirubin, direct <0.2 0.1 - 0.3 mg/dL [facility] Protein, pl 9.2(H) 6.5 - 8.5 g/dL [facility] Albumin 4.2 3.5 - 5.0 g/dL [facility] Alk phos 92 40 - 130 Units/L [facility] ALT 24 7 - 55 Units/L [facility] AST 43 10 - 50 Units/L [facility] Comment:Hemolyzed; result ma y be falsely elevated Blood 06/02/2024 9:35 AM ORACLE HRMS CONSULTANT 06/02/2024 9:53 AM ORACLE HRMS CONSULTANT Calvin Sainz MD LAB BLOOD ORDERABLES F inal Result Performing Organization Address [facility] de Phone Number [facility] [email or web address] [address] * Acetaminophen level (06/02/2024 9:35 AM ORACLE HRMS CONSULTANT) Pathologist [facility] Acetaminophen <5 <=5 mcg/mL Comment: Interpretive Data Significant hepatic injury may occur and treatment with n-acetyl cysteine is generally recommended if the acetaminophen level exceeds: 150 mcg/mL at 4 hours after ingestion ??75 mcg/mL at 8 hours after ingestion ??38 mcg/mL at 12 hours after ingestion ??19 mcg/mL at 16 hours after ingestion Consult toxicology or poison control ([phone]) for unknown ingestion time. Current interpretive data was last revised 2023. Blood 06/02/2024 9:35 AM ORACLE HRMS CONSULTANT 06/02/2024 9:53 AM ORACLE HRMS CONSULTANT Calvin Sainz MD LAB BLOOD ORDERABLES F inal Result Performing Organization Address [facility] de Phone Number [facility] [place] [address] * (ABNORMAL) Blood gas, venous (06/02/2024 9:35 AM ORACLE HRMS CONSULTANT) pH, Venous 7.22(L) 7.32 - 7.43 PCO2, Venous 61(H) 40 - 50 mmHg [facility] PO2, Venous 35 mmHg [facility] Comment: Interpretive Data No Reference Range Established Current Interpretive Data was last revised on 2017. HCO3 Venous, Calculated 26 20 - 30 mmol/L [facility] BE, venous -5 mmol/L [facility] Comment: Interpretive Data No Reference Range Established Current Interpretive Data was last revised on 2017. Blood 06/02/2024 9:35 AM ORACLE HRMS CONSULTANT 06/02/2024 9:43 AM ORACLE HRMS CONSULTANT Calvin Sainz MD LAB BLOOD ORDERABLES F inal Result Performing Organization Address [facility] de Phone Number [facility] [place] [address] * (ABNORMAL) CBC with auto differential (06/02/2024 9:35 AM ORACLE HRMS CONSULTANT) WBC 3.9 3.8 - 9.9 K/cumm Hgb 14.7 13.0 - 17.5 g/dL [facility] Hct 47.6 38.9 - 50.3 % [facility] Plt 316 150 - 400 K/cumm [facility] MPV 9.3 9.1 - 12.3 fL [facility] RBC 5.85(H) 4.30 - 5.80 M/cumm [facility] MCV 81.4 81.3 - 96.4 fL [facility] MCH 25.1(L) 27.1 - 33.3 pg [facility] MCHC 30.9(L) 32.3 - 35.7 g/dL [facility] RDW CV 14.7 11.1 - 14.9 % [facility] RDW SD 43.7 35.7 - 48.1 fL [facility] NRBC abs 0.00 0.00 - 0.01 K/cumm [facility] Blood 06/02/2024 9:35 AM ORACLE HRMS CONSULTANT 06/02/2024 9:53 AM ORACLE HRMS CONSULTANT us Calvin Sainz MD LAB BLOOD ORDERABLES F inal Result [facility] [place] [address] * (ABNORMAL) Basic metabolic panel (06/02/2024 9:35 AM ORACLE HRMS CONSULTANT) Sodium 139 135 - 145 mmol/L Potassium, pl 4.1 3.3 - 4.9 mmol/L [facility] Comment:Hemolyzed; Potassium value may be falsely elevated by as much as 0.3-0.5 mmol/L. Suggest redraw and reanalysis. Chloride 108 97 - 110 mmol/L [facility] CO2 24 22 - 32 mmol/L [facility] Anion gap 7 2 - 15 mmol/L [facility] BUN 14 6 - 25 mg/dL [facility] Creatinine 0.84 0.80 - 1.30 mg/dL [facility] Glucose 57(L) 70 - 199 mg/dL [facility] Comment: Interpretive Data Fasting glucose >/= 126 [...] Calcium 9.4 8.5 - 10.3 mg/dL [facility] Blood 06/02/2024 9:35 AM ORACLE HRMS CONSULTANT 06/02/2024 9:53 AM ORACLE HRMS CONSULTANT us Calvin Sainz MD LAB BLOOD ORDERABLES F inal Result [facility] [place] [address] * DC CRITICAL CARE ILL/INJURED PATIENT INIT 30-74 MIN (06/02/2024 9:28 AM ORACLE HRMS CONSULTANT) Narrative Calvin Sainz MD - 06/02/2024 9:28 AM ORACLE HRMS CONSULTANT Calvin Sainz MD ? 06/02/2024 12:03 PM [...] time documenting in the medical record. us Calvin Sainz MD IN CLINIC/BEDSIDE RONNYDenise COTTERBRITTANY Final Result documented in this encounter Visit Diagnoses Diagnosis Intentional benzodiazepine overdose, initial encounter (HCC)- Primary Intentional benzodiazepine overdose, initial encounter (HCC) Diarrhea, unspecified type Respiratory acidosis Acidosis Nonadherence to medication Low CD4 cell count determined by flow cytometry Borderline personality disorder ([facility]/HCC) (HCC) [F60.3] Borderline personality disorder HIV infection, unspecified symptom status ([facility]) documented in this encounter Admitting Diagnoses Diagnosis Intentional benzodiazepine overdose, initial encounter (HCC) documented in this encounter Administered Medications Inactive Administered Medications - up to 3 most recent administrations Medication Order MAR Action Action Date Dose Rate Site acetaminophen (TYLENOL) tablet 650 mg 650 mg, oral, Every 4 hours PRN, 1st line for pain, fever, fever greater than 38.3 C, Starting on Sun06/03/24 at 1745, Indications: Fever, PainIndications:Fever,Pain Given 06/05/2024 5:43 AM ORACLE HRMS CONSULTANT 650 mg Given 06/04/2024 7:53 PM ORACLE HRMS CONSULTANT 650 mg Given 06/04/2024 8:03 AM ORACLE HRMS CONSULTANT 650 mg acyclovir (ZOVIRAX) 700 mg in sodium chloride 0.9% 100 mL IVPB 700 mg (rounded from 680 mg = 10 mg/kg ? 68 kg), intravenous, at 114 mL/hr, Administer over 60 Minutes, Every 8 hours scheduled, First dose on Lara 06/05/24 at 0900, Room temperature only, Indications: central nervous system infectionIndications:central nervous system infection New Bag 06/07/2024 6:19 AM ORACLE HRMS CONSULTANT 700 mg 114 mL /hr New Bag 06/06/2024 9:04 PM ORACLE HRMS CONSULTANT 700 mg 114 mL/hr New Bag 06/06/2024 3:49 PM ORACLE HRMS CONSULTANT 700 mg 114 mL/hr qeptrddyxbu-ofzziutvljpqp-wntvgcvcy (BIKTARVY) 50-200-25 mg per tablet 1 tablet 1 tablet, oral, Daily, First dose on 06/07/24 at 0915, May be dissolved in 240 mL of water. Give 2 hrs before or 6 hrs after MVI, antacids, or other products containing sucralfate, magnesium, aluminum, iron, or zinc., Indications: HIV infectionIndications:HIV infection Carrier Fluids for Secondary Infusion - 0.9% Sodium Chloride 30 mL, intravenous, As needed, For priming tubing and/or flushing, Starting on Sun06/03/24 at 1745, 0-250 ml/hr to flush line after IV infusions when no maintenance IV ordered. Infuse 30mL at the same rate as the secondary infusion. Run as primary IV, not intended for KVO. cefTRIAXone (ROCEPHIN) 2,000 mg/20 mL in sterile water (premix) 2,000 mg 2,000 mg, intravenous, at 240 mL/hr, Administer over 5 Minutes, Every 12 hours scheduled, First dose on Lara 06/05/24 at 0900, Indications: central nervous system infectionIndications:central nervous system infection Given 06/06/2024 9:04 PM ORACLE HRMS CONSULTANT 2,000 mg 240 mL /hr Given 06/06/2024 11:00 AM ORACLE HRMS CONSULTANT 2,000 mg 240 mL/hr Given 06/05/2024 9:44 AM ORACLE HRMS CONSULTANT 2,000 mg 240 mL/hr dextrose (D10W) 10% bolus 250 mL 250 mL, intravenous, at 250 mL/hr, Administer over 60 Minutes, Once, On Sun06/02/24 at 1315, For 1 dose New Bag 06/02/2024 1:24 PM ORACLE HRMS CONSULTANT 250 mL 250 mL/hr dextrose 10% infusion - ADS Override Pull Starting on Sun06/02/24 at 1314, For 1 dose, Created by cabinet override dextrose 5% and sodium chloride 0.9% infusion (premix) 125 mL/hr, intravenous, Once, On Sun06/02/24 at 1917, For 1 dose Rate/Dose Verify 06/03/2024 1:09 AM ORACLE HRMS CONSULTANT 125 mL/hr 125 mL/hr New Bag 06/02/2024 7:47 PM ORACLE HRMS CONSULTANT 125 mL/hr 125 mL/hr loperamide (IMODIUM) capsule 2 mg 2 mg, oral, Once, On Sun06/03/24 at 0642, For 1 dose, Maximum recommended dose 16 mg/day Given 06/03/2024 7:01 AM ORACLE HRMS CONSULTANT 2 mg loperamide (IMODIUM) capsule 2 mg 2 mg, oral, 2 times daily PRN, diarrhea, Starting on Sun06/04/24 at 0958, Maximum recommended dose 16 mg/day Given 06/05/2024 9:05 PM ORACLE HRMS CONSULTANT 2 mg ondansetron (ZOFRAN) injection 4 mg 4 mg, intravenous, Administer over 2 Minutes, Once, On Sun06/03/24 at 0652, For 1 dose Given 06/03/2024 7:01 AM ORACLE HRMS CONSULTANT 4 mg ondansetron (ZOFRAN) injection 4 mg 4 mg, intravenous, Administer over 2 Minutes, Once, On Sun06/03/24 at 1036, For 1 dose Given 06/03/2024 10:46 AM ORACLE HRMS CONSULTANT 4 mg ramelteon (ROZEREM) tablet 8 mg 8 mg, oral, Nightly PRN, sleep, Starting on Sun06/03/24 at 1745, Indications: Sleep-Onset InsomniaIndications:Sleep-Onset Insomnia Given 06/05/2024 9:05 PM ORACLE HRMS CONSULTANT 8 mg sodium chloride 0.9% flush 0.5-20 mL 0.5-20 mL, intra-catheter, Every 8 hours scheduled (alternate), First dose on Sun06/03/24 at 1746, Flush volume based on line type and size. Given 06/07/2024 6:19 AM ORACLE HRMS CONSULTANT 10 mL Given 06/07/2024 1:26 AM ORACLE HRMS CONSULTANT 10 mL Given 06/05/2024 9:08 PM ORACLE HRMS CONSULTANT 10 mL sodium chloride 0.9% flush 0.5-20 mL 0.5-20 mL, intra-catheter, As needed, line care, Starting on Sun06/03/24 at 1745, Flush volume based on line type and size. Flush before and after each use. sulfamethoxazole-trimethoprim (BACTRIM DS) 800-160 mg per tablet 160 mg of trimethoprim 160 mg of trimethoprim, oral, 3 times weekly (Once per day on Sunday), First dose on Sun06/04/24 at 1630, Indications: Pneumocystis/Toxoplasmosis ProphylaxisIndications:Pneumoc ystis/Toxoplasmosis Prophylaxis Given 06/06/2024 11:02 AM ORACLE HRMS CONSULTANT 160 mg of trimethoprim Given 06/04/2024 5:22 PM ORACLE HRMS CONSULTANT 160 mg of trimethoprim vancomycin 1,000 mg/200 mL in dextrose 5% (premix) 1,000 mg 1,000 mg (rounded from 1,020 mg = 15 mg/kg ? 68 kg), intravenous, Administer over 60 Minutes, Once, On Lara 06/05/24 at 0645, For 1 dose, Indications: feverIndications:fever New Bag 06/05/2024 9:45 AM ORACLE HRMS CONSULTANT 1,000 mg vancomycin 1,000 mg/200 mL in dextrose 5% (premix) 1,000 mg 1,000 mg, intravenous, Administer over 60 Minutes, Every 12 hours, First dose on Lara 06/05/24 at 1900, Indications: central nervous system infectionIndications:central nervous system infection New Bag 06/06/2024 9:04 PM ORACLE HRMS CONSULTANT 1,000 mg New Bag 06/06/2024 11:02 AM ORACLE HRMS CONSULTANT 1,000 mg New Bag 06/05/2024 9:05 PM ORACLE HRMS CONSULTANT 1,000 mg documented in this encounter Discontinued Medications Medication Sig Discontinue Reason Start Date End Da te busPIRone (BUSPAR) 5 mg tablet Take 1 tablet (5 mg total) by mouth 2 (two) times a day Alternate therapy 12/03/2023 06/04/2024 gabapentin (NEURONTIN) 100 mg capsule Take 1 capsule (100 mg total) by mouth 2 (two) times a day Error 06/04/2024 bictegravir-emtricit abine-tenofovir (Biktarvy) 50-200-25 mg tabletIndications:HI V infection Take 1 tablet by mouth daily Stop Taking at Discharge 04/10/2024 06/07/2024 sulfamethoxazole-tri methoprim (BACTRIM DS) 800-160 mg per tabletIndications:Pr ophylaxis, Medical Take 1 tablet (160 mg of trimethoprim total) by mouth daily Stop Taking at Discharge 04/10/2024 06/07/2024 documented as of this encounter Historical Medications * This list may reflect changes made after this encounter. traZODone (DESYREL) 50 mg tablet Take 1 tablet (50 mg total) by mouth nightly as needed 02/21/2024 07/08/2024 ibuprofen (ADVIL,MOTRIN) 600 mg tablet Take 1 tablet (600 mg total) by mouth every 6 (six) hours as needed 04/13/2023 07/08/2024 gabapentin (NEURONTIN) 100 mg capsule Take 1 capsule (100 mg total) by mouth 2 (two) times a day 06/04/2024 busPIRone (BUSPAR) 5 mg tablet Take 1 tablet (5 mg total) by mouth 2 (two) times a day 12/03/2023 06/04/2024 busPIRone (BUSPAR) 10 mg tablet Take 1 tablet (10 mg total) by mouth 3 (three) times a day 02/08/2024 06/19/2024 buPROPion XL (WELLBUTRIN XL) 150 mg 24 hr tablet Take 1 tablet (150 mg total) by mouth daily 04/19/2024 07/08/2024 added in this encounter Active and Recently Administered Medications Times are shown in ORACLE HRMS CONSULTANT. Scheduled Medication Order 06/05/2024 06/06/2024 06/07/2024 acyclovir (ZOVIRAX) 700 mg in sodium chloride 0.9% 100 mL IVPB 700 mg (rounded from 680 mg = 10 mg/kg ? 68 kg), intravenous, at 114 mL/hr, Administer over 60 Minutes, Every 8 hours scheduled, First dose on Lara 06/05/24 at 0900, Room temperature only, Indications: central nervous system infection 0945 (New Bag - Provider: Mor Walker RN)1520 (New Bag - Provider: Mor Walker RN) 0336 (Not Given - Provider: Tabitha Vale - Reason: Patient/family refused - Comment: patient refused until spoke with MD at bedside then removed PIV requesting a PICC line)0502 (Not Given - Provider: Tabitha Vale - Reason: Patient/family refused - Comment: loss of PIV access, refuses new placement, MD aware)1549 (New Bag - Provider: Mor Walker RN)2104 (New Bag - Provider: Manda Singh) 0619 (New Bag - Provider: Manda Singh) bictegravir-emtricitabi ne-tenofovir (BIKTARVY) 50-200-25 mg per tablet 1 tablet 1 tablet, oral, Daily, First dose on 06/07/24 at 0915, May be dissolved in 240 mL of water. Give 2 hrs before or 6 hrs after MVI, antacids, or other products containing sucralfate, magnesium, aluminum, iron, or zinc., Indications: HIV infection 0915 (Due) cefTRIAXone (ROCEPHIN) 2,000 mg/20 mL in sterile water (premix) 2,000 mg (CANCELED) 2,000 mg, intravenous, at 240 mL/hr, Administer over 5 Minutes, Every 12 hours scheduled, First dose on Sun06/05/24 at 0900, Indications: central nervous system infection 0944 (Given - Provider: Mor Walker, RN) 0331 (Not Given - Provider: Tabitha Vale - Reason: Patient/family refused - Comment: patient refused until spoke with MD at bedside then removed PIV requesting a PICC line)1100 (Given - Provider: Mor Walker, VICTOR MANUEL - Comment: Loss of IV access)2104 (Given - Provider: Manda Singh) sodium chloride 0.9% flush 0.5-20 mL 0.5-20 mL, intra-catheter, Every 8 hours scheduled (alternate), First dose on Sun06/03/24 at 1746, Flush volume based on line type and size. 0000 (Canceled Entry - Provider: Beatris Reid RN)0945 (Given - Provider: Mor Walker, VICTOR MANUEL)1520 (Given - Provider: Mor Walker, RN)2108 (Given - Provider: Tabitha Vale) 1024 (Return to Cabinet - Provider: Mor Walker RN)1549 (Return to Cabinet - Provider: Mor Walker RN) 0126 (Given - Provider: Manda Singh)0619 (Given - Provider: Manda Singh) sulfamethoxazole-trimet hoprim (BACTRIM DS) 800-160 mg per tablet 160 mg of trimethoprim 160 mg of trimethoprim, oral, 3 times weekly (Once per day on Sunday), First dose on Sun06/04/24 at 1630, Indications: Pneumocystis/Toxoplasmo sis Prophylaxis 1102 (Given - Provider: Mor Walker, VICTOR MANUEL) vancomycin 1,000 mg/200 mL in dextrose 5% (premix) 1,000 mg (COMPLETED) 1,000 mg (rounded from 1,020 mg = 15 mg/kg ? 68 kg), intravenous, Administer over 60 Minutes, Once, On Lara 06/05/24 at 0645, For 1 dose, Indications: fever 0945 (New Bag - Provider: Mor Walker RN) vancomycin 1,000 mg/200 mL in dextrose 5% (premix) 1,000 mg (CANCELED) 1,000 mg, intravenous, Administer over 60 Minutes, Every 12 hours, First dose on Lara 06/05/24 at 1900, Indications: central nervous system infection 2104 (New Bag - Provider: Tabitha Vale) 110 (New Bag - Provider: Mor Walker RN - Comment: loss of IV access)2103 (New Bag - Provider: Manda Singh) 1120 (Not Given - Provider: Jessica Alonso RN - Reason: Order Discontinued) PRN Medication Order 06/05/2024 06/06/2024 06/07/2024 acetaminophen (TYLENOL) tablet 650 mg (CANCELED) 650 mg, oral, Every 4 hours PRN, 1st line for pain, fever, fever greater than 38.3 C, Starting on Sun06/03/24 at 1745, Indications: Fever, Pain 0543 (Given - Provider: Beatris Reid RN) Carrier Fluids for Secondary Infusion - 0.9% Sodium Chloride 30 mL, intravenous, As needed, For priming tubing and/or flushing, Starting on Sun06/03/24 at 1745, 0-250 ml/hr to flush line after IV infusions when no maintenance IV ordered. Infuse 30mL at the same rate as the secondary infusion. Run as primary IV, not intended for KVO. loperamide (IMODIUM) capsule 2 mg 2 mg, oral, 2 times daily PRN, diarrhea, Starting on Sun06/04/24 at 0958, Maximum recommended dose 16 mg/day 2104 (Given - Provider: Tabitha Vale) ramelteon (ROZEREM) tablet 8 mg 8 mg, oral, Nightly PRN, sleep, Starting on Sun06/03/24 at 1745, Indications: Sleep-Onset Insomnia 2104 (Given - Provider: Tabitha Vale) sodium chloride 0.9% flush 0.5-20 mL 0.5-20 mL, intra-catheter, As needed, line care, Starting on Sun06/03/24 at 1745, Flush volume based on line type and size. Flush before and after each use. documented in this encounter Orders Medications Ordered That Prasad ht Not Have Been Administered Count Last Ordered Date First Ordered Date ajnhipvajyv-pwjtbmlmvgcnx-xe nofovir (BIKTARVY) 50-200-25 mg per tablet 1 tablet 1 06/07/2024 al & mag hydroxide simethico ne-lidocaine (GI COCKTAIL WITHOUT ANTISPASMODIC) suspension 40 mL 1 06/05/2024 ampicillin 2,000 mg/60 mL in sterile water (premix) 2,000 mg 1 06/05/2024 cefepime (MAXIPIME) 2,000 mg /20 mL in sterile water (premix) 2,000 mg 1 06/05/2024 Carrier Fluids for Secondary Infusion - 0.9% Sodium Chloride 1 06/03/2024 cloNIDine (CATAPRES) tablet 0.2 mg 1 2023 sodium chloride 0.9% flush 0.5-20 mL 1 05/23 Lab Orders Without Results Count Last Ordered D ate First Ordered Date CRYPTOSPORIDIUM AND GIARDIA ANTIGEN ASSAY 1 06/04/2024 CREATINE KINASE (CK), TOTAL 1 06/02/2024 POCT GLUCOSE DEVICE 4 06/02/2024 POCT KETONE, BLOOD 1 06/02/2024 SEPSIS LACTATE WITH REFLEX 1 06/02/2024 T-HELPER CELLS (CD4) COUNT 1 06/02/2024 General Supply Count Last Ordered Date First Or dered Date STOOL MANAGEMENT SYSTEM ([id number]) 1 06/02/20 24 Nursing Count Last Ordered Date First Orde red Date WEIGH PATIENT 1 06/03/2024 BW IP INSERT INTERNAL FECAL MANAGEMENT SYSTEM 1 06/02/2024 Consult Count Last Ordered Date First Orde red Date CONSULT TO BEDSIDE PROCEDURE TEAM 1 024 IP CONSULT TO OPHTHALMOLOGY 1 06/05/2024 CONSULT TO GENERAL INFECTIOUS DISEASE 1 IP CONSULT TO NUTRITION SERVICES 1 06/03/20 24 IP CONSULT TO PSYCHIATRY 1 06/03/2024 IP CONSULT TO SOCIAL WORK 1 06/03/2024 IP CONSULT TO TOXICOLOGY 1 06/02/2024 Admission Count Last Ordered Date First Orde red Date ADMIT TO INPATIENT 1 06/02/2024 Discharge Count Last Ordered Date First Orde red Date DISCHARGE PATIENT 1 06/07/2024 CORE MEASURES Count Last Ordered Date First Ord ered Date REASON FOR NO VTE PROPHYLAXIS AT ADMISSION 1 06/03/2024 documented in this encounter Care Teams Signal Operator Linguist Relationship Specialty Start Date End Date Mady Sullivan MD [address] [facility] [address], [place] [address] PCP - General Infectious Diseases 10/12/23 No, Physician 10/12/23 documented as of this encounter
--- OUTSIDE RECORDS SUMMARY | 2024-08-10 03:33 | XMS_ITS | Encounter Summary ---
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 Name Role Phone Mady Sullivan MD Primary Care Provider No, Physician Unavailable Nguyen Stephenson RN Unavailable [phone] Encounter Details Date Type Department Care Team (Late st Contact Info) Description 06/08/2024 Telephone [facility] [address] [place] [id number] Ngozi Payne MD [address] [facility] [address] [place] [address] Social History Tobacco Use Types Packs/Day Years Used Date Smoking Tobacco: Former Cigarettes Passive Smoke Exposure: Current Smokeless Tobacco: Never [facility] Utilities Answer Date Recorded In the past 12 months has [facility] [employer] gas, oil, or water [employer] threatened to shut off services in your [...] answer 06/04/2024 [facility] often do you attend [facility]? Patient unable to answer 06/04/2024 Do [...] Date Recorded PHQ-2 Total Score 4 04/07/2024 [facility] - Occupational [...] or living in a prison (including now)? 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 Answer Date of Assessment Author No 02/24/2024 10:18 AM CDManda Ibrahim, SUIT MAKER * Are you blind or do you have serious difficulty seeing, even when wearing glasses? Answer Date of Assessment Author No 02/24/2024 10:18 AM CDManda Ibrahimia, SUIT MAKER * Do you have serious difficulty walking or climbing stairs? Answer Date of Assessment Author No 02/24/2024 10:18 AM CDManda Ibrahimia, SUIT MAKER * Do you have serious difficulty dressing or bathing? Answer Date of Assessment Author No 02/24/2024 10:18 AM CDManda Ibrahim, SUIT MAKER * Because of a physical, mental, or [...] * Telephone Encounter - Светлана Giang - 06/11/2024 4:59 PM CST 2nd LVM TALIZER TENDER * Telephone Encounter - Shannon Michael, B.A. - 06/10/2024 9:06 AM CST Left voicemail for pt to call back and schedule these appts ues petros if pt calls back schedule next available ues petros TALIZER TENDER * Telephone Encounter - Ngozi Payne MD - 06/08/2024 9:27 PM CRYSTALIZER TENDER Please schedule for PETROS in 4-6 weeks with DFEx and HVF 24-2, APR nerve and GCC for incidentally noted enlarged c/d ratio. Thanks! Prosper TALIZER TENDER documented in this encounter Plan of Treatment Not on file documented as of this encounter Visit Diagnoses Not on filedocumented in this encounter Care Teams Fuel Efficient Aircraft Designer Relationship Specialty Start Date End Date Mady Sullivan MD [address] [facility] [address] [place] [address] PCP - General Infectious Diseases 10/12/23 No, Physician 10/12/23 Nguyen Stephenson, RN [address] [facility] [address] [place] [address] SHOP Outpatient Personnel And Payroll Technician 06/09/24 06/11/24 documented as of this encounter
--- OUTSIDE RECORDS SUMMARY | 2024-08-10 03:33 | XMS_ITS | Encounter Summary ---
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 other acute stressors. Prior interviews documented meeting criteria for BPD and overall narrative and repeat presentations to ED are consistent with this presentation. Todays presentation of transient SI is consistent with this prior diagnosis. Also possible that he had transient SI iso meth intoxication. SECONDARY DIAGNOSIS/ES: stimulant use disorder (methamphetamines) Risk Assessment: Risk factors: male sex, living alone, prior suicide attempt(s), hopelessness, communication of suicidal intent, chronic psychiatric disorder, active substance use of methamphetamines, poor coping skills, history of medication non- adherence, history of impulsivity, unemployment, non-domiciled, and lack of social support Protective factors: access to healthcare/mental health resources, non-smoker, and non-drinker At this time, the patient denies suicidal ideation. he does not have a plan and denies suicidal intent. The patient has demonstrated no self-harm behaviors. Overall, the patient is at chronically at least moderately elevated risk of harm due to non-modifiable risk factors; he is not at additional acutely elevated high risk of harm to self/others given noSI, HI, AH, VH, paranoia, stable housing, future planning, social support, coping skills, no accessto firearms, outpatient psychiaatric care following with [facility] and on vivitrol. Phil hCase is being discharged stable, communicating to us he feels safe, and is denying SI/HI/AVH. Patient no longer presents as an imminent risk of harm to self or others and can meet own needs. Recommendations - At this time, patient does not meet criteria for psychiatric admission - Provided patient with information on community resources for mental health, substance use treatment, and counseling - Please consult Social Work for mental health and psychosocial needs as necessary - Discussed with ED team who are in agreement - Should patient be admitted to a medical or surgical floor and psychiatric consultation assistanceis still needed please place a Psychiatry Consult order in [facility] and call the Inpatient Psychiatry Consult Service Agatha Burton MD Weapons Officer, PGY-2 For patients or family members viewing this note through [employer] programs: This note was written as a [...] documented in this encounter ED Notes * Benny Newell MD - 05/10/2024 7:36 AM CDT HPI Chief Complaint Patient presents with Suicidal Ideation 28 male with borderline personality neurosyphilis substance abuse amphetamine abuse alcohol abuse who presents for possible SI that is now resolved. Patient has been seen multiple times at various institutions including [facility] where he was until the morning of 05/08/2024. He states that it was not a meeting in the [facility] and they ultimately had no space for him and ultimately discharged him.Patient apparently met with his family and came out to them even though he has been living a activegait lifestyle for many years but just did not realize that this was an issue. Apparently the conversation not go well and the family was very angry. The patient left and went to his house where he lives in the 10th floor of an apartment and kind of plate of jumping off the balcony which she did not actually do and then came back inside. He states that he continued to use methamphetamines and alcohol which he relapsed 4. He currently has no suicidal ideation states that he often has transient suicidal ideations but generally does not act on them. The patient has had was 20 visits in the last 3 months for various psychiatric issues at this and other institutions and has been admitted in March 11, 2024 by Psychiatry for short period of time. Patient's suicidality was changed from high to low based on his desire to no longer hurt himself. Patient History: Patient Active Problem List Diagnosis Date Noted Dental abscess 04/04/2024 Borderline personality disorder (CMS/HCC) ([facility]) 03/03/2024 Neutropenia ([facility]) 03/03/2024 Limping 03/03/2024 Suicide attempt ([facility]) 02/24/2024 Lower extremity pain, right 02/24/2024 Stimulant use disorder 02/24/2024 Suicide ideation 01/29/2024 Cannabis use disorder, severe ([facility]) 01/26/2024 Routine general medical examination at a health care facility 01/26/2024 PTSD (post-traumatic stress disorder) 10/12/2023 Vertigo 10/11/2023 Unspecified mood disorder ([facility]) 10/10/2023 HIV disease (CMS/HCC) ([facility]) 10/03/2023 Syphilis 10/03/2023 Inguinal hernia 10/03/2023 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[facility]) 10/03/2023 Plaque psoriasis 10/03/2023 Methamphetamine use disorder, moderate ([facility]) 10/03/2023 Borderline personality disorder, rule out other organic causes of unusual pEX/MSE 10/02/2023 HIV (human immunodeficiency virus infection) ([facility]) 10/30/2022 Skin lesion 10/30/2022 Painless rectal bleeding 10/30/2022 Depressive disorder 10/30/2022 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 Condyloma 10/29/2020 Past Medical History: Diagnosis Date Anal warts Borderline personality disorder ([facility]) ([facility]) Depression prior suicide attempts (10/2023, 02/2024) Depression with suicidal ideation HIV (human immunodeficiency virus infection) ([facility]) HIV (human immunodeficiency virus infection) ([facility]) Dx 2018 Methamphetamine use disorder, moderate, in early remission ([facility]) Neuropathy (CMS/[facility]) PTSD (post-traumatic stress disorder) Syphilis (acquired) Rx'd [...] Encounter Data from: 03/01/24 Enc Dept: [facility] ED Born and raised: [facility], moved to [facility] when 8 yo Currently lives: inpatient substance abuse rehab, pt says at [facility], but consult note says at [facility] Family Feels safe: yes Access to firearms: no currently while at inpatient substance abuse rehab Educ ation: per pt he graduated HS and college with a degree in computer science Work: Not currently employed, 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 Psychiatric/Behavioral: Positive for behavioral problems, dysphoric mood and self-injury. All other systems reviewed and are negative. Physical Exam ED Triage Vitals Temp Pulse Resp BP SpO2 05/10/24 0702 05/10/24 0651 05/10/24 0651 05/10/24 0650 05/10/24 0651 36.7 ??C (98.1 ??F) 103 20 123/98 97 % Temp src Heart Rate Source Patient Position BP Location FiO2 (%) 05/10/24 0702 -- -- -- -- Oral Height Height Method Weight Weight Method 05/10/24 0702 05/10/24 0702 05/10/24 0702 05/10/24 0702 1.829 m (6') Stated 81.6 kg (180 [...] Neurological: Mental Status: He is alert. Psychiatric: Mood and Affect: Mood normal. [facility] Medical Decision Making Summary: 28-year-old with multiple medical problems including psychiatric disorders who has had multiple evaluations for various suicidality depression possible hallucinations that is ultimately beenfelt to be related to his bipolar disease personality disorder and drug use. Patient just left the facility where he was admitted to Psychiatry but ultimately was in holding in left because they discharged him since there was no available beds. He has got a clear medical exam with minimal tachycardia that is now resolving. DDX: Drug abuse alcohol abuse personality disorder Plan: Patient will get basic labs. I suspect that this has to do with primarily his chronic condition and alcohol abuse/drug abuse however will have Psychiatry see him as he just left the facility and was initially listed as a high-risk due to the potential jump. Amount and/or Complexity of Data Reviewed Labs: ordered. Final diagnoses: None Benny Newell MD 05/10/24 0801 * Trevor Simons RN - 05/10/2024 6:51 AM CDT Pt coming in via EMS for SI. Plan to jump off his balcony. Hx of meth use, last used yesterday. Endorses ETOH use. Complaining of left ankle pain, rolled ankle. Tearful during intake process. Hx HIV,has been off meds for past few weeks. documented in this encounter Miscellaneous Notes * ED Pre-Arrival Note - Christina Cuello RN - 05/10/2024 6:44 AM CDT Pre-Arrival Note SI, plan to jump off the building. Christina Cuello RN documented in this encounter Plan of Treatment Not on file documented as of this encounter Procedures Procedure Name Priority Date/Time Associated Diagnosis Comments POCT GLUCOSE DEVICE Routine 05/10/2024 1 0:12 AM CDT POCT GLUCOSE DEVICE Routine 05/10/2024 9 :24 AM CDT XR ANKLE LEFT 3 OR MORE VIEWS ED 05/10/2024 7:56 AM CDT N. GONORRHOEAE/C. TRACHOMATIS AMPLIFICATION STAT 05/10/2024 7:13 AM CDT TRICHOMONAS VAGINALIS PCR STAT 05/10/2024 7:13 AM CDT T-HELPER CELLS (CD4) COUNT STAT 05/10/2024 7:13 AM CDT EGFR STAT 05/10/2024 7:10 AM CDT DIFFERENTIAL AUTO STAT 05/10/2024 7:1 0 AM CDT CRITICAL RESULT CALLBACK CHEMISTRY STAT 05/10/2024 7:10 AM CDT THYROID FUNCTION CASCADE STAT 05/10/2024 7:10 AM CDT URINALYSIS AND REFLEX TO MICROSCOPIC STAT 05/10/2024 7:10 AM CDT CBC WITH AUTO DIFFERENTIAL STAT 05/10/2024 7:10 AM CDT DRUGS OF ABUSE SCREEN, URINE WITHOUT CONFIRMATION STAT 05/10/2024 7:10 AM CDT URINALYSIS, MICROSCOPIC ONLY STAT 05/10/2024 7:10 AM CDT ETHANOL STAT 05/10/2024 7:10 AM CDT COMPREHENSIVE METABOLIC PANEL STAT 05/10/2024 7:10 AM CDT documented in this encounter Results * POCT glucose (05/10/2024 10:12 AM CDT) Glucose, POC 87 70 - 199 mg/dL Blood 05/10/2024 10:1 2 AM CDT 05/10/2024 10:12 AM CDT Benny Newell MD LAB POCT ORDERABLES - DE VICE Final Result Performing Organization Address [facility] Phone Number JOE [facility] Department [place] [address] * (ABNORMAL) POCT glucose (05/10/2024 9:24 AM CDT) Glucose, POC 55(L) 70 - 199 mg/dL Blood 05/10/2024 9:24 AM CDT 05/10/2024 9:[address] [facility] Michel Newell MD LAB POCT ORDERABLES - DE VICE Final Result Performing Organization Address [facility] Phone Number [facility] Department [place] [address] * XR Ankle Left 3 or More [...] IMG XR PROCEDURES Final Result * (ABNORMAL) T-helper cells (CD4) count (05/10/2024 7:13 AM CDT) Pathologist [facility] CD4 pct 14(L) 31 - 64 % CD4 Absolute 149(L) 365 - 1,294 cells/mcL [facility] Blood 05/10/2024 7:13 AM CDT 05/10/2024 7:[address] [facility] Michel Newell MD LAB BLOOD ORDERABLES Fin al Result [facility] Department [place] [address] * Trichomonas vaginalis PCR Urine (05/10/2024 7:13 AM CDT) [facility] Trichomonas DNA Not Detected Not Detected [facility] Comment: Interpretive Data This assay detects Trichomonas vaginalis by nucleic acid amplification testing (NAAT). This assay has been cleared by the [place] Food and Drug administration. The performance characteristics of this test have been verified by the [facility] Molecular Infectious Disease laboratory. Excess blood [...] ORDERABLES Final Result Performing Organization Address [facility] Co de Phone Number [facility] [place] [address] [facility] * N. gonorrhoeae/C. trachomatis Amplification Urine (05/10/2024 7:13 AM CDT) C. trachomatis Not Detected Not Detected [facility] N. gonorrhoeae Not Detected Not Detected [facility] Comment: Interpretive Data This assay detects Chlamydia trachomatis and Neisseria gonorrhoeae by nucleic acid amplification testing (NAAT). This assay has been cleared by the [place] Food and Drug administration. The performance characteristics of this test have been verified by the [facility] Molecular Infectious Disease laboratory. The performance characteristics of this test have not been evaluated in individuals less than 14 years of age. Current Interpretive Data last revised 2023. Urine (None) 05/10/2024 7:13 AM CDT 05/10/2024 7:38 AM CDT Benny Newell MD LAB MICROBIOLOGY - GENER AL ORDERABLES Final Result Performing Organization Address [facility] de Phone Number [facility] Department [place] [address] [facility] * Critical Result Callback Chemistry (05/10/2024 7:10 AM CDT) Date Notified [id number] Time Notified 905 JOE HAYWARD TestName glucose JOE IBRAHIM Called/Read Back Deysi Mathewl JOE IBRAHIM Credentials RN JOE IBRAHIM Called By VINNY HAYWARD Blood 05/10/2024 7:10 AM CDT 05/10/2024 7:46 AM CDT Harley Subramanian MD LAB BLOOD ORDERABLES Final Resul t Performing Organization Address [facility] Co de Phone Number [facility] Department [place] [address] * eGFR (05/10/2024 7:10 AM CDT) Pathologist [facility] eGFR >90 >=60 mL/min/1. 73 m2 Comment: [...] MD LAB BLOOD ORDERABLES Final Resul t JOE HAYWARD Rajesh [facility] Department [place] [address] * (ABNORMAL) Urinalysis, microscopic only (05/10/2024 7:10 AM CDT) WBC, ur 0-5 0 - 5 /HPF RBC, ur 6-10(A) 0 - 2 /HPF [facility] Bacteria, ur Trace(A) [facility] Mucous, ur Present(A) [facility] Urine 05/10/2024 7:10 AM CDT 05/10/2024 7:25 AM CDT Harley Subramanian MD LAB URINE ORDERABLES Final Resul t [facility] Department [place] [address] * Differential, auto (05/10/2024 7:10 AM CDT) Neutrophil abs 2.2 1.5 - 6.5 K/cumm Imm gran abs 0.0 0.0 - 0.1 K/cumm [facility] Lymphocyte abs 1.7 0.8 - 3.3 K/cumm [facility] Monocyte abs 0.4 0.2 - 0.8 K/cumm [facility] Eosinophil abs 0.1 0.0 - 0.5 K/cumm [facility] Basophil abs 0.0 0.0 - 0.1 K/cumm [facility] Neutrophil pct 49.4 % [facility] Comment: Interpretive Data Percent cell count reference ranges are not reported, since discordance with absolute values may lead to misinterpretation of CBC data. Current Interpretive Data was last revised on 2017. Imm gran pct 0.5 % [facility] Comment: Interpretive Data Percent cell count reference ranges are not reported, since discordance with absolute values may lead to misinterpretation of CBC data. Current Interpretive Data was last revised on 2017. Lymphocyte pct 37.8 % [facility] Comment: Interpretive Data Percent cell count reference ranges are not reported, since discordance with absolute values may lead to misinterpretation of CBC data. Current Interpretive Data was last revised on 2017. Monocyte pct 9.8 % [facility] Comment: Interpretive Data Percent cell count reference ranges are not reported, since discordance with absolute values may lead to misinterpretation of CBC data. Current Interpretive Data was last revised on 2017. Eosinophil pct 1.6 % [facility] Comment: Interpretive Data Percent cell count reference ranges are not reported, since discordance with absolute values may lead to misinterpretation of CBC data. Current Interpretive Data was last revised on 2017. Basophil pct 0.9 % [facility] Comment: Interpretive Data Percent cell count reference ranges are not reported, since discordance with absolute values may lead to misinterpretation of CBC data. Current Interpretive Data was last revised on 2017. Blood 05/10/2024 7:10 AM CDT 05/10/2024 7:25 AM CDT us Harley Subramanian MD LAB BLOOD ORDERABLES Final Resul t [facility] Department [place] [address] * (ABNORMAL) Urinalysis reflex to microscopic (05/10/2024 7:10 AM CDT) Color, ur Yellow Yellow Clarity, ur Clear Clear [facility] Specific gravity, ur 1.032(H) 1.003 - 1.030 [facility] pH, urine 6.5 [facility] Comment: Interpretive Data ? Urine pH is affected by diet, medications, systemic acid-base disturbances, and renal tubular function. ??pH may affect urinary stone formation. ??For example, urine pH below 6.0 may help reduce the tendency for calcium phosphate stones and pH greater than 6.0 may reduce the tendency for uric acid stone formation. Source: [facility] [employer] Current Interpretive Data was last revised on 2017 Protein, ur ql 2+(A) Negative [facility] Glucose, ur ql Negative Negative [facility] Ketones, ur Negative Negative [facility] Bilirubin, ur Negative Negative [facility] Blood, ur Negative Negative [facility] Urobilinogen, ur 4.0(A) <2.0 mg/dL [facility] Nitrite, ur Negative Negative [facility] Leukocyte esterase, ur Negative Negative [facility] UA reflex comment Reflex to microscopic UA will be performed. [facility] Urine 05/10/2024 7:10 AM CDT 05/10/2024 7:[address] [facility] Michel Newell MD LAB URINE ORDERABLES Fin al Result [facility] Department [place] [address] * (ABNORMAL) Drugs of Abuse Screen, Urine without Confirmation (05/10/2024 7:10 AM CDT) [facility] Amphetamine, ur Screen Positive, presumptive (A) CutOff [...] Barbiturates, ur Not Detected CutOff 200ng/mL JOE [facility] Comment: Interpretive Data - Barbiturates: ??Samples containing greater than 200 ng/mL secobarbital or other cross-reacting barbiturate compounds are reported as positive. ??False positive and false negative results are possible. Confirmatory testing required for definitive results. Current Interpretive Data was last reviewed 2023. Benzodiazepines, ur Screen Positive, presumptive (A) CutOff 100ng/mL JOE [facility] Comment: Interpretive Data - Benzodiazepines: ??Samples containing greater than 100 ng/mL nordiazepam or other cross-reacting compounds are reported as positive. False positive and false negative results are possible. Confirmatory testing required for definitive results. Current Interpretive Data was last reviewed 2023. Cannabinoids, ur Not Detected CutOff 50 ng/mL JOE [facility] Comment: Interpretive Data - Cannabinoids: ??Samples containing greater than 50 ng/mL delta-9 THC -COOH or other cross-reacting compounds are reported as positive. ??False positive and false negative results are possible. ??Confirmatory testing required for definitive results. Current Interpretive Data was last reviewed 2023. Cocaine, ur Not Detected CutOff 150ng/mL JOE [facility] Comment: Interpretive Data - Cocaine: ??Samples containing greater than 150 ng/mL benzoylecgonine or other cross-reacting compounds are reported as positive. False positive and false negative results are possible. Confirmatory testing required for definitive results. Current Interpretive Data was last reviewed 2023. Fentanyl, Ur Not Detected CutOff 5 ng/mL JOE [facility] Comment: Interpretive Data - Fentanyl: ?? Samples containing greater than 5 ng/mL norfentanyl, fentanyl, or other cross-reacting fentanyl compounds are reported as positive. False positive and false negative results are possible. Confirmatory testing required for definitive results. Current Interpretive Data was last reviewed 2023. Methadone, ur Not Detected CutOff 300ng/mL JOE [facility] Comment: Interpretive Data - Methadone: ??Samples containing greater than 300 ng/mL d,l-methadone or other cross-reacting compounds are reported as positive. ??False positive and false negative results are possible. Confirmatory testing required for definitive results. Current Interpretive Data was last reviewed 2023. Opiates, ur Screen Positive, presumptive (A) CutOff 300ng/mL JOE [facility] Comment: Interpretive Data - Opiates: ??Samples containing greater than 300 ng/mL morphine or other cross-reacting compounds are reported as positive. ??False positive and false negative results are possible. Confirmatory testing required for definitive results. Current Interpretive Data was last reviewed 2023. Oxycodone, ur Not Detected CutOff 100ng/mL JOE [facility] Comment: Interpretive Data - Oxycodone: ??Samples containing greater than 100 ng/mL oxycodone or other cross-reacting compounds are reported as ??positive. ??False positive and false negative results are possible. Confirmatory testing required for definitive results. Current Interpretive Data was last reviewed 2023. Phencyclidine, ur Not Detected CutOff 25 ng/mL JOE [facility] Comment: Interpretive Data - Phencyclidine: ??Samples containing greater than 25 ng/mL phencyclidine or other cross-reacting compounds are reported as positive. ??False positive and false negative results are possible. Confirmatory testing required for definitive results. Current Interpretive Data was last reviewed 2023. Urine Creatinine 267 mg/dL JOE [facility] Comment: Interpretive Data Urine Creatinine: < 10 mg/dL is extremely dilute = or > 10 but < 20 mg/dL is dilute = or > 20 mg/dL is normal Current Interpretive Data was last revised on 2017. Urine 05/10/2024 7:10 AM CDT 05/10/2024 7:25 AM CDT Narrative JOE [facility] - 05/10/2024 8:14 AM CDT Drug of Abuse screening is performed by immunoassay for medical purposes only. ??This is not to be used for Pain Management purposes. Benny Newell MD LAB URINE ORDERABLES Fin al Result Performing Organization Address [facility] de Phone Number [facility] [place] [address] * Ethanol (05/10/2024 7:10 AM CDT) Ethanol <10 <=10 mg/dL Comment: Interpretive Data Legal limit of intoxication > or = 80 mg/dL Levels > or = 400 mg/dL are potentially TOXIC. Current interpretive data was last revised on 2018. Blood 05/10/2024 7:10 AM CDT 05/10/2024 7:25 AM CDT Benny Newell MD LAB BLOOD ORDERABLES Fin al Result Performing Organization Address [facility] de Phone Number [facility] [place] [address] * Thyroid Function [place] (05/10/2024 7:10 AM CDT) TSH 2.03 0.30 - 4.20 mcIUnit/mL Blood 05/10/2024 7:10 AM CDT 05/10/2024 7:25 AM CDT Benny Newell MD LAB BLOOD ORDERABLES Fin al Result Performing Organization Address [facility] de Phone Number [facility] [place] [address] * (ABNORMAL) Comprehensive metabolic panel (05/10/2024 7:10 AM CDT) Sodium 141 135 - 145 mmol/L Potassium, pl 4.4 3.3 - 4.9 mmol/L [facility] Chloride 104 97 - 110 mmol/L [facility] CO2 28 22 - 32 mmol/L [facility] Anion gap 9 2 - 15 mmol/L [facility] BUN 20 6 - 25 mg/dL [facility] Creatinine 1.11 0.80 - 1.30 mg/dL [facility] Glucose 54(C) 70 - 199 mg/dL [facility] Comment: Glycolysis suspected; suggest sending a hobbs [...] 2022. Calcium 10.0 8.5 - 10.3 mg/dL [facility] Bilirubin, total 0.3 0.1 - 1.2 mg/dL [facility] Protein, pl 10.3(H) 6.5 - 8.5 g/dL [facility] Albumin 4.4 3.5 - 5.0 g/dL [facility] Alk phos 85 40 - 130 Units/L [facility] ALT 38 7 - 55 Units/L [facility] AST 42 10 - 50 Units/L [facility] Blood 05/10/2024 7:10 AM CDT 05/10/2024 7:[address] [facility] Michel Newell MD LAB BLOOD ORDERABLES Fin al Result [facility] Department [place] [address] * (ABNORMAL) CBC with auto differential (05/10/2024 7:10 AM CDT) WBC 4.4 3.8 - 9.9 K/cumm Hgb 14.0 13.0 - 17.5 g/dL [facility] Hct 44.1 38.9 - 50.3 % [facility] Plt 616(H) 150 - 400 K/cumm [facility] MPV 8.9(L) 9.1 - 12.3 fL [facility] RBC 5.44 4.30 - 5.80 M/cumm [facility] MCV 81.1(L) 81.3 - 96.4 fL [facility] MCH 25.7(L) 27.1 - 33.3 pg [facility] MCHC 31.7(L) 32.3 - 35.7 g/dL [facility] RDW CV 15.2(H) 11.1 - 14.9 % [facility] RDW SD 44.6 35.7 - 48.1 fL [facility] NRBC abs 0.00 0.00 - 0.01 K/cumm [facility] Blood (Blood, Venous) 05/10/2024 7:10 AM CDT 05/10/2024 7:[address] [facility] Michel Newell MD LAB BLOOD ORDERABLES Fin al Result [facility] Department [place] [address] documented in this encounter Visit Diagnoses Diagnosis Depression, unspecified depression type- Primary Borderline personality disorder (CMS/HCC) (HCC) Borderline personality disorder documented in this encounter Orders Lab Orders Without Results Count Last Ordered D ate First Ordered Date POCT GLUCOSE DEVICE 1 05/10/2024 Nursing Count Last Ordered Date First Orde red Date MISCELLANEOUS NURSING CARE ORDER (SPECIFY) 1 05/10/2024 NURSING COMMUNICATION 1 05/10/2024 Consult Count Last Ordered Date First Orde red Date IP CONSULT TO PSYCHIATRY 1 05/10/2024 documented in this encounter Care Teams Arboriculture Instructor Relationship Specialty Start Date End Date Mady Sullivan MD [address] [facility] [address], [place] [address] PCP - General Infectious Diseases 10/12/23 No, Physician 10/12/23 documented as of this encounter
--- OUTSIDE RECORDS SUMMARY | 2024-08-10 03:33 | XMS_ITS | Encounter Summary ---
Author Organization [facility] Healthcare Address [address] [place] [address] Care Team Providers Care Can Coverer Name Role Phone Mady Sullivan MD Primary Care Provider No, Physician Unavailable Nguyen Stephenson RN Unavailable [phone] Reason for Visit * Reason Comments Alcohol Intoxication Encounter Details Date Type Department Care Team (Late st Contact Info) Description 04/11/2024 3:06 AM CDT - 04/11/2024 6:02 AM CDT Emergency [facility] Emergency Department [address] [place] [address] Cole Childs MD [facility] [address] [place], [place] [id number] Alcoholic intoxication without complication (CMS/HCC) (HCC) (Primary Dx) Discharge Disposition: Discharge to home or self care Social History Tobacco Use Types Packs/Day Years Used Date Smoking Tobacco: Former Cigarettes Passive Smoke Exposure: Current Smokeless Tobacco: Never [facility] Utilities Answer Date Recorded In the past 12 months has e electric, gas, oil, or water Canal do [employer] threatened to shut off services in your [...] How often do you attend chur or amish services? 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 Gender Identity Not on file Sexual Orientation Not on file Occupation Industry Job Start Date Job End Date unemployed Not on file Not on file Not on file documented as of this encounter Last Filed Vital Signs Vital Sign Reading Time Taken Comments Blood Pressure 120/63 04/11/2024 5:59 AM CDT Pulse 63 04/11/2024 5:59 AM CDT Temperature 36.8 ??C (98.2 ??F) 04/11/2024 5:59 AM CD T Respiratory Rate 18 04/11/2024 5:59 AM CDT Oxygen Saturation 98% 04/11/2024 5:59 AM CDT Inhaled Oxygen Concentration - - Weight - - Height - - Body Mass Index - - documented in this encounter Functional Status * Are you deaf or do you have serious difficulty hearing? Answer Date of Assessment Author No 02/24/2024 10:18 AM CDT Manda Hardin COLLECTION SYSTEMS ADMINISTRATOR * Are you blind or do you have serious difficulty seeing, even when wearing glasses? Answer Date of Assessment Author No 02/24/2024 10:18 AM CDT Manda Hardin COLLECTION SYSTEMS ADMINISTRATOR * Do you have serious difficulty walking or climbing stairs? Answer Date of Assessment Author No 02/24/2024 10:18 AM CDT Manda Hardin COLLECTION SYSTEMS ADMINISTRATOR * Do you have serious difficulty dressing or bathing? Answer Date of Assessment Author No 02/24/2024 10:18 AM CDT Manda Hardin COLLECTION SYSTEMS ADMINISTRATOR * Because of a physical, mental, or emotional condition, do you have serious difficulty doing errandsalone such as visiting the doctor? Answer Date of Assessment Author No 02/24/2024 10:18 AM CDT Manda Hardin COLLECTION SYSTEMS ADMINISTRATOR documented as of this encounter Mental Status * Because of a physical, mental, or emotional condition, do you have serious difficulty concentrating, remembering, or making decisions? (5 years old or older) Answer Entry Date Author No 02/24/2024 10:18 AM CDT Manda Hardin, COLLECTION SYSTEMS ADMINISTRATOR documented in this encounter Discharge Instructions * Discharge Instructions* Caitlyn Ty, - 04/11/2024 5:05 AM CDT Dear Phil Chase You were evaluated in the Emergency Department for alcohol intoxication. While you were here, we monitored you for alcohol withdrawal but you did not have any tremors, seizures, and your vital signs were stable. Once you sobered up, we discharged you. Please continue taking your home medications. If you develop worsening tremors, seizures, high heart rate, chest pain, or shortness of breath, please return to the Emergency Department. * Attachments The following attachments cannot be sent through Care Everywhere. * ALCOHOL INTOXICATION (SAUDI ARAB[place]) documented in this encounter Medications at Time of Discharge busPIRone (BUSPAR) 10 mg tablet Take 1 [...] for 10 days 20 tablet 04/09/2024 4 ARIPiprazole (ABILIFY) 10 mg tabletIndication s:Depression Treatment Adjunct Take 1 tablet (10 mg total) by mouth daily 30 tablet 04/10/2024 4 bictegravir-emtr icitabine-tenofo vir (Biktarvy) 50-200-25 mg tabletIndication s:HIV infection Take 1 tablet by mouth daily 30 tablet 3 04/10/2024 4 doxepin (SINEquan) 25 mg capsule Take 1 capsule (25 mg total) by mouth nightly 30 capsule 01/29/[address] (CYMBALTA) 60 mg capsule Take 1 capsule (60 mg total) by mouth daily 30 capsule 01/30/2024 4 hydrOXYzine (ATARAX) 50 mg tablet Take 1 tablet (50 mg total) by mouth every 6 (six) hours as needed 02/08/2024 4 sulfamethoxazole -trimethoprim (BACTRIM DS) 800-160 mg per tabletIndication s:Prophylaxis, Medical Take 1 tablet (160 mg of trimethoprim total) by mouth daily 30 tablet 1 04/10/2024 4 documented as of this encounter Discharge Disposition Disposition Code Departure Means Destination Comment s Discharge to home or self care documented in this encounter Progress Notes * Annette Trujillo MSW - 04/11/2024 6:02 AM CDT EDSW referred to pt for transportation assistance with transportation back to vehicle where was picked up by EMS. SW confirmed with RN pt is now clinically sober, A&Ox4, and ambulatory. SW reviewed chart and found pt was BIBEMS from [address]. SW arranged [employer] to expedite safe discharge. No further needs. Annette Trujillo LMSW documented in this encounter ED Notes * Cole Childs MD - 04/11/2024 3:32 AM CDT DOS: 04/11/2024 I have seen and examined this patient, I have discussed/reviewed the history, physical exam and assessment with the resident. We are in agreement with treatment plan except as I have noted, and I agree with their documentation except as noted. 28-year-old male with a history of HIV/AIDS (CD4 138 with detectable VL on 04/04/24) currently prescribed Biktarvy and Bactrim prophylaxis in addition to a history of alcohol use disorder presenting today with concern for alcohol intoxication. The patient has been sober for 1 year in 2 months untilrelapsing yesterday. He has been on a binge where today he has had a 5th of vodka for shots of Don Magnus Tequila before developing tingling in the left arm, slurred speech, and unsteady gait [place]was in a park. He had band into his car and called EMS. On my assessment, vital signs are stable. While anxious, the patient is answering questions appropriately and not responding to internal stimuli. Neurologic exam is nonfocal with fluent speech. Lung sounds are clear, cardiac exam is regular rate and rhythm. He denies any infectious symptoms at this time. We will continue to monitor and reassess pending clinical sobriety, anticipate discharge home. Cole Childs MD 04/11/24 0348 * Caitlyn Ty, - 04/11/2024 3:26 AM CDT HPI Chief Complaint Patient presents with Alcohol Intoxication Phil Chase is a 28 yo male with PMH of HIV on Biktarvy, BPD, and schizoaffective disorder who presents with alcohol intoxication. Pt class got cancelled yesterday and has been stressed with work. Also, he started thinking of his past relationship yesterday as well and he started drinking from noon yesterday to 8 pm. He drank a fifth of vodka and 4 shots of don magnus. Per patient, he had beensober for a year and 2 months prior to yesterday. Around 9:15 pm yesterday, felt a tingle in his left arm and a tremor in his right arm. This felt similar to when he has had alcohol withdrawal seizures in the past so he wanted to get this checked out. He denies chest pain, SOB, and current tremors or tingling. Patient History: Patient Active Problem List Diagnosis [...] [facility]) 10/10/2023 HIV disease ([facility] ([facility]) 10/03/2023 Syphilis [...] Diagnosis Date Anal warts Borderline personality disorder ([facility]) ([facility]) Depression prior suicide attempts (10/2023, 02/2024) Depression with suicidal ideation HIV (human immunodeficiency virus infection) ([facility]) HIV (human immunodeficiency virus infection) ([facility]) Dx 2018 Methamphetamine use disorder, moderate, in early remission ([facility]) Neuropathy ([facility]) PTSD (post-traumatic stress [...] Encounter Data from: 03/01/24 Enc Dept: [facility] ED Born and raised: [facility], moved to [facility] when 8 yo Currently lives: inpatient substance abuse rehab, pt says at [facility], but consult note says at [facility] Feels safe: yes Access to firearms: no currently while at inpatient substance abuse rehab Educ ation: per pt he graduated and college with a degree in computer science Work: Not currently employed, 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 Review of Systems Review of Systems Constitutional: Negative for chills and fatigue. HENT: Negative for rhinorrhea and sore throat. Respiratory: Negative for shortness of breath. Cardiovascular: Negative for chest pain and leg swelling. Gastrointestinal: Negative for abdominal pain, nausea and vomiting. Genitourinary: Negative for dysuria. Physical Exam ED Triage Vitals [04/11/24 0025] Temp Pulse Resp BP SpO2 37.6 ??C (99.7 ??F) 106 16 126/90 98 % Temp src Heart Rate Source Patient Position BP Location FiO2 (%) Oral -- -- -- -- Height Height Method Weight Weight Method -- -- -- -- Physical Exam Constitutional: Appearance: Normal appearance. HENT: Head: Normocephalic [...] breath sounds. Abdominal: Palpations: Abdomen is soft. Musculoskeletal: General: Normal range of motion. Cervical back: Normal range of motion. Skin: General: Skin is warm and dry. Neurological: Mental Status: He is alert. MDM Medical Decision Making Phil Chase is a 28 yo male with PMH of HIV on Biktarvy, BPD, and schizoaffective disorder who presents with alcohol intoxication. Around 9:15 pm yesterday, he felt tingling in his left arm and tremor in his right arm which prompted him to come to the ED. Pt not currently tachycardic and on exam, no tremors. He appears intoxicated. He has had history of alcohol withdrawal seizures. He does not want an IV for fluids so will continue to monitor pt until he natividad up. Attending Summary of Care ED Course as of 04/11/2435 Time: 04/11 547 Comment: Pt has sobered up. Placed social work consult for transportation. By: Caitlyn Ty DO Alcoholic intoxication without complication ([facility]) ([facility]) Caitlyn Ty DO Resident 04/11/24 0558 Caitlyn Ty DO Resident 04/11/24 0635 Cosigned by Cole Childs MD at 04/12/2024 5:20 AM CDT * Dallas Campos RN - 04/11/2024 3:06 AM CDT Bed: ED1-08 Expected date: Expected time: Means of arrival: Comments: Dallas Jacobsen, VICTOR MANUEL 04/11/24 0306 * Michelle Chavarria RN - 04/11/2024 12:24 AM CDT Patient BIBEMS c/o alcohol intoxication. Patient states he is a frequent but not daily drinker. Patient endorses withdrawal seizures, not has not had any today. Patient's last drink was a fifth of vodka approximately 30 minutes ago. documented in this encounter Miscellaneous Notes * Plan of Care - Cheyenne Chase RN - 04/11/2024 1:33 AM CDT 04/11/24 0133 Type Readmission </= 30 Days? Yes High Utilizer >/= 4 Hospitalizations in 12 Months? Yes Is this Patient Active with an Outpatient Case Management Program? No Record Review of Prior Admission Was this Readmission Planned? No Disposition at Prior Admit D/C Home, no service Was the D/C Location what the Care Team Recommended? Yes Functional Status at Index D/C Independent Cognitive Status at Index D/C A&O x3 Is Patient ACO No Patient Interview Patient Discharged prior to Interview No Did Patient have assigned PCP on Discharge? Yes Was Appointment made on Index Discharge? Yes Appointment made with Specialist What Specialty? ID Wash U Number of Days from Index D/C 8-14 Who Provided the Information Other (Comment) In Patient's own words, what led to return to Hospital ETOH Intoxication Was Patient Discharged to Home Yes Were Presciptions Filled No Did Patient Contact Provider prior to Admission No Primary Readmission Reason Psychiatric or behavioral disorder ED CM received automated alert that patient has had an inpatient admission <30 days (ED treatment team aware).DX: ETOH Intoxication with H/O Withdrawal Seizures (none noted today). With last DC/BJC 04.10.24 after requiring treatment for Suicidal Ideation and a Dental Abscess of the R 1st Premolarwith marked overlying Facial Cellulitis.ED workup/orders/tx plan is pending at the time this note was entered.Please contact ED CM ([phone]) or ED SW ([phone]) for needs. * ED Pre-Arrival Note - An Francisco RN - 04/11/2024 12:21 AM CDT Pre-Arrival Note Pt BIBEMS due to alcohol intoxication. VSS An Francisco RN documented in this encounter Plan of Treatment Not on file documented as of this encounter Visit Diagnoses Diagnosis Alcoholic intoxication without complication (CMS/HCC) (HCC)- Primary documented in this encounter Additional Health Concerns Infection Onset Date Last Indicated Resolved Time Ring Surveillance 04/06/2024 04/06/2024 04/13/2024 3:05 AM CDT documented as of this encounter Care Teams Can Coverer Relationship Specialty Start Date End Date Mady Sullivan MD [address] [facility] [address] [place] [address] PCP - General Infectious Diseases 10/12/23 No, Physician 10/12/23 Nguyen Stephenson RN [address] [facility] [address] [place] [address] SHOP Outpatient Nut Sorter Operator 04/11/24 04/14/24 documented as of this encounter
--- OUTSIDE RECORDS SUMMARY | 2024-08-10 03:33 | XMS_ITS | Encounter Summary ---
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 General: Abdomen is flat. Palpations: Abdomen is soft. Tenderness: There is no abdominal tenderness. Musculoskeletal: General: No swelling, tenderness or deformity. Normal range of motion. Cervical back: Normal range of motion and neck supple. No tenderness. Skin: General: Skin is warm and dry. Neurological: General: No focal deficit present. Mental Status: He is alert and oriented to person, place, and time. Psychiatric: Attention and Perception: Attention and perception normal. Mood and Affect: Mood is depressed. Affect is tearful. Speech: Speech normal. Behavior: Behavior normal. Behavior is cooperative. Thought Content: Thought content includes suicidal ideation. Thought content includes suicidal plan. Cognition and Memory: Cognition normal. MDM Medical Decision Making Pt is a 28 year old male with PMH borderline personality disorder, past hx suicide attempt, PTSD, HIV on Biktarvy not currently compliant, hx syphilis, hx meth use, who presents after a suicide attempt. Pt states he took 8 tablets total of 2 mg each Xanax; states 4 of these tablets he swallowed and4 of these tablets he crushed up and snorted; stated he did this around 0100 today as a suicide attempt. States that after that he [place] himself [place], also as a suicide attempt. Reports +LOC, +headstrike. Denies any pain from the fall other than on his head. He also endorses crack cocaine and IV methamphetamine use around 10pm. He states he has a very difficult time recently, that he recently came out to his family about his sexuality which resulted in him being shunned by his family. After that, he has developed worsening substance use difficulties which has caused a financial strain which ultimately resulted him in being evicted from his apartment today. He states these events led up to his suicide attempt. He presents alert and oriented x4, nauseous. On exam, he is well appearing, tearful, nausea with active dry heaves, but in no acute distress, with stable vital signs. Airway patent. Lung sounds clear bilaterally. Pulses palpable in all extremities. GCS 15, moving all extremities, no loss of sensation. On secondary survey, mild tenderness to palpation of the temporal skull on the right. No cervical spine tenderness. Abdomen soft nontender. Pelvis intact. Extremities w/ full range of motion, no deformities or tenderness elicited. No tenderness to palpation of thoracic and lumbar spine. Presentation concerning for possible physical injury, as well as benzodiazepine ingestion, meth andcocaine intoxication, and active SI attempt. Will obtain trauma and psych labs. Will obtain chest XR, head CT. Anticipate consult to psych w/ likely admission due to SI. Amount and/or Complexity of Data Reviewed Labs: ordered. Decision-making details documented in ED Course. Radiology: ordered. Decision-making details documented in ED Course. ECG/medicine tests: ordered. Risk Prescription drug management. Decision regarding hospitalization. Diagnosis or treatment significantly limited by social determinants of health. Attending Summary of Care ED Course as of 04/30/24 1416 Time: 04/28 220 Comment: 28 yo male with HIV, borderline PD, methamphetamine use d/o, presents after reportedly taking 8 xanax (2 mg each) around 1 AM. He then states he threw himself down a flight of stairs as partof a suicide attempt. He reports positive LOC. He also used IV meth and smoked crack cocaine today.Will need to check labs including APAP and salicylate levels to r/o coingestion, get ECG, check CT head and c-spine as well as CXR. Will monitor 4 hours to medically clear (though is wide awake and alert now) then consult psychiatry. By: Vin Prince MD Time: 04/28 314 Comment: Called to pt bedside. Pt has developed pruritic rash over bilateral forearms. Appears to be bumps. Not consistent with urticaria. Appears to be contact dermatitis. Will give benadryl By: Doris Castro MD Time: 04/28 514 Value: WBC(!): 2.9 Comment: (Reviewed) By: Doris Castro MD Time: 04/28 514 Value: CT Head and Cervical Spine WO Contrast Comment: IMPRESSION: 1. No acute intracranial process. 2. No evidence of acute fracture in the cervical spine. By: Doris Castro MD Time: 04/28 515 Value: XR Chest 1 Vw Portable Comment: Normal cardiomediastinal silhouette. No pulmonary consolidation, pleural effusion, or pneumothorax. By: Doris Castro MD Time: 04/28 519 Comment: Reordered BMP and hepatic function panel due to hemolyzed sample By: Doris Castro MD Time: 04/28 557 Comment: Discussed pt w/ psych. They will see the pt. By: Doris Castro MD Time: 04/28 715 Comment: Sign out: Dispo pending psych. Patient w/ HIV who is having social issues with family not accepting him so he attempted suicide w/ xanax and throwing himself down the stairs at the train station. By: Dede Monahan MD Time: 04/28 847 Comment: Psychiatry do not feel patient needs psychiatric admission. Recommend having the patient speak with social work about substance use programs. Patient is agreeable. By: Alvaro Ramírez MD Suicide attempt (HCC) Suicide attempt by benzodiazepine overdose (HCC) Methamphetamine use disorder, moderate (HCC) Cocaine use Borderline personality disorder, rule out other organic causes of unusual pEX/MSE Asymptomatic HIV infection, with no history of HIV-related illness (HCC) Borderline personality disorder (CMS/HCC) (HCC) Doris Castro MD 04/28/24 0728 Doris Castro MD 04/30/24 1416 Cosigned by Vin Prince MD at 04/30/2024 3:56 PM CDT Associated attestation - Vin Prince MD - 04/30/2024 3:56 PM CDT I have seen and examined the patient on 04/28/2024. I agree with the findings and plan of care as documented in the resident's note. * Chana Castro RN - 04/28/2024 1:55 AM CDT Pt BIBEMS for SI attempt. Pt attempted to overdose on Xanax. Pt crushed up 4, 2 mg xanax pills and snorted those. Pt also ingested 4, 2 mg Xanax pills. Pt states he has had 2 episodes of emesis and believes he threw up the 4 pills he swallowed. Pt endorsing taking Xanax at 0100. Pt given 4 mg of zofran en route. Pt also threw himself down 15 steps. - blood thinners, Pt also endorsing meth and cocaine use today. * Shawnee Roa RN - 04/28/2024 1:54 AM CDT Bed: ED1-13 Expected date: Expected time: Means of arrival: Comments: Medic 2 Shawnee Roa RN 04/28/24 0154 documented in this encounter Miscellaneous Notes * ED Re-evaluation Note - Alvaro Ramírez MD - 04/28/2024 6:58 AM CDT ED Re-evaluation TRANSITION OF CARE: I, Alvaro Ramírez MD, am taking signout and assuming care of this patient from Dr Castro. I have reviewed all pertinent vital signs, allergies, and history available in the chart. Dispo: admit Pending: psychiatry evaluation Summary: 28 y.o. male with a history of borderline personality disorder, past suicide attempt, PTSD, HIV who presents after a suicide attempt. Pt took 8 tablets of 2mg Xanax. 4 he swallowed, 4 he crushed and snorted. Also threw himself down 15 stairs, used cocaine, and meth. This occurred around 0100 today. States this was precipitated by him coming out to his family and they disowned him. He then had increased drug use and was evicted. ED Course as of 04/28/24 0849 Time: 04/28 220 Comment: 28 yo male with HIV, borderline PD, methamphetamine use d/o, presents after reportedly taking 8 xanax (2 mg each) around 1 AM. He then states he threw himself down a flight of stairs as partof a suicide attempt. He reports positive LOC. He also used IV meth and smoked crack cocaine today.Will need to check labs including APAP and salicylate levels to r/o coingestion, get ECG, check CT head and c-spine as well as CXR. Will monitor 4 hours to medically clear (though is wide awake and alert now) then consult psychiatry. By: Vin Prince MD Time: 04/28 314 Comment: Called to pt bedside. Pt has developed pruritic rash over bilateral forearms. Appears to be bumps. Not consistent with urticaria. Appears to be contact dermatitis. Will give benadryl By: Doris Castro MD Time: 04/28 514 Value: WBC(!): 2.9 Comment: (Reviewed) By: Doris Castro MD Time: 04/28 514 Value: CT Head and Cervical Spine WO Contrast Comment: IMPRESSION: 1. No acute intracranial process. 2. No evidence of acute fracture in the cervical spine. By: Doris Castro MD Time: 04/28 515 Value: XR Chest 1 Vw Portable Comment: Normal cardiomediastinal silhouette. No pulmonary consolidation, pleural effusion, or pneumothorax. By: Doris Castro MD Time: 04/28 519 Comment: Reordered BMP and hepatic function panel due to hemolyzed sample By: Doris Castro MD Time: 04/28 557 Comment: Discussed pt w/ psych. They will see the pt. By: Doris Castro MD Time: 04/28 715 Comment: Sign out: Dispo pending psych. Patient w/ HIV who is having social issues with family not accepting him so he attempted suicide w/ xanax and throwing himself [place] the stairs at the train station. By: Dede Monahan MD Time: 04/28 847 Comment: Psychiatry do not feel patient needs psychiatric admission. Recommend having the patient speak with social work about substance use programs. Patient is agreeable. By: Alavro Ramírez MD Klemm, Chandler [place], MD 04/28/24 0717 * ED Procedure Note - Vin Prince MD - 04/28/2024 2:41 AM CDTAssociated Order(s): ECG 12 lead Procedure ECG 12 lead Date/Time: 04/28/2024 2:41 AM Performed by: Vin Prince MD Authorized by: Doris Castro MD Rate: ECG rate: 78 ECG rate assessment: normal Rhythm: Rhythm: sinus rhythm Ectopy: Ectopy: none QRS: QRS axis: Normal QRS intervals: Normal Conduction: Conduction: normal ST segments: ST segments: Normal T waves: T waves: normal Previous ECG: Previous ECG: Unavailable Interpretation: Interpretation: normal Recommended Follow-up: Recommended follow up: further workup in the ED Vin Prince MD 04/28/24 0242 * ED Pre-Arrival Note - Ezra Lowe RN - 04/28/2024 1:51 AM CDT Pre-Arrival Note Pt to the ED from the sidewalk via EMS after SI attempt. Pt tried to overdose and threw himself down 15 steps at the [employer] Ezra Lowe RN documented in this encounter Plan of Treatment Not on file documented as of this encounter Procedures Procedure Name Priority Date/Time Associated Diagnosis Comments HIV-1 RNA, QUANTITATIVE, PCR STAT 04/28/2024 8:32 AM CDT T-HELPER CELLS (CD4) COUNT STAT 04/28/2024 8:32 AM CDT DRUGS OF ABUSE SCREEN, URINE WITH REFLEX CONFIRMATION STAT 04/28/2024 6:41 AM CDT URINALYSIS AND REFLEX TO MICROSCOPIC AND CULTURE STAT 04/28/2024 6:41 AM CDT AMPHETAMINE, URINE, CONFIRMATION STAT 04/28/2024 6:41 AM CDT URINALYSIS, MICROSCOPIC ONLY STAT 04/28/2024 6:41 AM CDT EGFR STAT 04/28/2024 5:29 AM CDT HEPATIC FUNCTION PANEL STAT 5:29 AM CDT BASIC METABOLIC PANEL STAT 04/28/2024 5:29 AM CDT ACETAMINOPHEN LEVEL STAT 04/28/2024 4 :42 AM CDT DIFFERENTIAL AUTO STAT 04/28/2024 4:1 8 AM CDT CBC WITH AUTO DIFFERENTIAL STAT 04/28/2024 4:[address] HEAD AND CERVICAL SPINE WO CONTRAST ED 04/28/2024 4:03 AM CDT XR CHEST 1 VIEW ED 04/28/2024 3:17 AM CDT EGFR STAT 04/28/2024 3:01 AM CDT ETHANOL STAT 04/28/2024 3:01 AM CDT ACETAMINOPHEN LEVEL STAT 04/28/2024 3 :01 AM CDT SALICYLATE LEVEL STAT 04/28/2024 3:01 AM CDT HEPATIC FUNCTION PANEL STAT 3:01 AM CDT BASIC METABOLIC PANEL STAT 04/28/2024 3:01 AM CDT ECG 12-LEAD Routine 04/28/2024 2:41 AM CDT documented in this encounter Results * (ABNORMAL) HIV-1 RNA PCR, quantitative Blood (04/28/2024 8:32 AM CDT) [facility] HIV-1 RNA Detected( A) [facility] Comment: The quantifiable range of this assay is 20 copies/mL to 10,000,000 copies/mL (1.30 log copies/mL to 7.00 log copies/mL). ??Testing was performed by the NEERU 6800 HIV-1 Test([employer] Testing performed at [facility] Current Interpretive Data was last revised on 2021. HIV-1 RNA, copies/mL 20,000 copies/mL [facility] HIV-1 RNA, log 4.30 log cps/mL [facility] Blood 04/28/2024 8:32 AM CDT 04/28/2024 9:03 AM CDT Alvaro Ramírez MD LAB MICROBIOLOGY - NERAL ORDERABLES Final Result [facility] Department [place] [address] [facility] * (ABNORMAL) T-helper cells (CD4) count (04/28/2024 8:32 AM CDT) [facility] CD4 pct 14(L) 31 - 64 % CD4 Absolute 88(L) 365 - 1,294 cells/mcL [facility] Blood 04/28/2024 8:32 AM CDT 04/28/2024 8:44 AM CDT Alvaro Ramírez MD LAB BLOOD ORDERABLES Final Result [facility] Department [place] [address] * (ABNORMAL) Amphetamine Confirmation, Urine (04/28/2024 6:41 AM CDT) Amphetamine Conf, Ur Confirmed Positive(A) CutOff 150ng/mL Methamphetamine Conf, Ur Confirmed Positive(A) CutOff 150ng/mL [facility] MDA Conf, Ur Does Not Confirm CutOff 150ng/mL [facility] MDMA Conf, Ur Does Not Confirm CutOff 50 ng/mL [facility] MDEA Conf, Ur Does Not Confirm CutOff [...] needed. Performance characteristics were determined by the [facility] in a manner consistent with CLIA requirement and has not been cleared or approved by the U.S. Food and Drug Administration. Current interpretive data was last revised on 2020. Urine 04/28/2024 6:41 AM CDT 04/28/2024 6:49 AM CDT Doris Castro MD LAB URINE ORDERABLES Fi nal Result [facility] Department [place] [address] * (ABNORMAL) Urinalysis, microscopic only (04/28/2024 6:41 AM CDT) WBC, ur 0-5 0 - 5 /HPF RBC, ur >50(A) 0 - 2 /HPF [facility] Epithelial cells, squamous, ur 1-5 0 - 5 /HPF [facility] Bacteria, ur Trace(A) [facility] Mucous, ur Present(A) [facility] Culture Reflex Comment Reflex conditions for urine culture (WBC >10) not met. [facility] Urine 04/28/2024 6:41 AM CDT 04/28/2024 6:48 AM CDT Doris Castro MD LAB URINE ORDERABLES Fi nal Result [facility] Department [place] [address] * (ABNORMAL) Drugs of Abuse Screen, Urine with Reflex Confirmation (04/28/2024 6:41 AM CDT) Amphetamine, ur Screen Positive, presumptive (A) CutOff [...] Barbiturates, ur Not Detected CutOff 200ng/mL [facility] Comment: Interpretive Data - Barbiturates: ??Samples containing greater than 200 ng/mL secobarbital or other cross-reacting barbiturate compounds are reported as positive. ??False positive and false negative results are possible. Confirmatory testing required for definitive results. Current Interpretive Data was last reviewed 2023. Benzodiazepines, ur Not Detected CutOff 100ng/mL [facility] Comment: Interpretive Data - Benzodiazepines: ??Samples containing greater than 100 ng/mL nordiazepam or other cross-reacting compounds are reported as positive. False positive and false negative results are possible. Confirmatory testing required for definitive results. Current Interpretive Data was last reviewed 2023. Cannabinoids, ur Not Detected CutOff 50 ng/mL [facility] Comment: Interpretive Data - Cannabinoids: ??Samples containing greater than 50 ng/mL delta-9 THC -COOH or other cross-reacting compounds are reported as positive. ??False positive and false negative results are possible. ??Confirmatory testing required for definitive results. Current Interpretive Data was last reviewed 2023. Cocaine, ur Not Detected CutOff 150ng/mL [facility] Comment: Interpretive Data - Cocaine: ??Samples containing greater than 150 ng/mL benzoylecgonine or other cross-reacting compounds are reported as positive. False positive and false negative results are possible. Confirmatory testing required for definitive results. Current Interpretive Data was last reviewed 2023. Fentanyl, Ur Not Detected CutOff 5 ng/mL [facility] Comment: Interpretive Data - Fentanyl: ?? Samples containing greater than 5 ng/mL norfentanyl, fentanyl, or other cross-reacting fentanyl compounds are reported as positive. False positive and false negative results are possible. Confirmatory testing required for definitive results. Current Interpretive Data was last reviewed 2023. Methadone, ur Not Detected CutOff 300ng/mL [facility] Comment: Interpretive Data - Methadone: ??Samples containing greater than 300 ng/mL d,l-methadone or other cross-reacting compounds are reported as positive. ??False positive and false negative results are possible. Confirmatory testing required for definitive results. Current Interpretive Data was last reviewed 2023. Opiates, ur Not Detected CutOff 300ng/mL [facility] Comment: Interpretive Data - Opiates: ??Samples containing greater than 300 ng/mL morphine or other cross-reacting compounds are reported as positive. ??False positive and false negative results are possible. Confirmatory testing required for definitive results. Current Interpretive Data was last reviewed 2023. Oxycodone, ur Not Detected CutOff 100ng/mL [facility] Comment: Interpretive Data - Oxycodone: ??Samples containing greater than 100 ng/mL oxycodone or other cross-reacting compounds are reported as ??positive. ??False positive and false negative results are possible. Confirmatory testing required for definitive results. Current Interpretive Data was last reviewed 2023. Phencyclidine, ur Not Detected CutOff 25 ng/mL [facility] Comment: Interpretive Data - Phencyclidine: ??Samples containing greater than 25 ng/mL phencyclidine or other cross-reacting compounds are reported as positive. ??False positive and false negative results are possible. Confirmatory testing required for definitive results. Current Interpretive Data was last reviewed 2023. Urine Creatinine 420 mg/dL [facility] Comment: Interpretive Data Urine Creatinine: < 10 mg/dL is extremely dilute = or > 10 but < 20 mg/dL is dilute = or > 20 mg/dL is normal Current Interpretive Data was last revised on 2017. Urine 04/28/2024 6:41 AM CDT 04/28/2024 6:49 AM CDT Narrative [facility] - 04/28/2024 7:44 AM CDT Drug of Abuse screening is performed by immunoassay for medical purposes only. ??This is not to be used for Pain Management purposes. ??If Detected, confirmation testing will be performed for Amphetamines, Cocaine, Fentanyl, Methadone, Opiates, Oxycodone or Phencyclidine. Doris Castro MD LAB URINE ORDERABLES nal Result [facility] Department [place] [address] * (ABNORMAL) Urinalysis reflex to microscopic and culture Urine (04/28/2024 6:41 AM CDT) Color, ur Yellow Yellow Clarity, ur Clear Clear [facility] Specific gravity, ur 1.034(H) 1.003 - 1.030 [facility] pH, urine 6.0 [facility] Comment: Interpretive Data ? Urine pH is affected by diet, medications, systemic acid-base disturbances, and renal tubular function. ??pH may affect urinary stone formation. ??For example, urine pH below 6.0 may help reduce the tendency for calcium phosphate stones and pH greater than 6.0 may reduce the tendency for uric acid stone formation. Source: [facility] [employer] Current Interpretive Data was last revised on 2017 Protein, ur ql 1+(A) Negative [facility] Glucose, ur ql Negative Negative [facility] Ketones, ur Negative Negative [facility] Bilirubin, ur Negative Negative [facility] Blood, ur 1+(A) Negative [facility] Urobilinogen, ur 2.0(A) <2.0 mg/dL [facility] Nitrite, ur Negative Negative [facility] Leukocyte esterase, ur Negative Negative [facility] UA reflex comment Reflex to microscopic UA will be performed. [facility] Urine 04/28/2024 6:41 AM CDT 04/28/2024 6:48 AM CDT us Doris Castro MD LAB MICROBIOLOGY - GENE RAL ORDERABLES Final Result Performing Organization Address [facility] Co de Phone Number [facility] Department [place] [address] * eGFR (04/28/2024 5:29 AM CDT) eGFR >90 >=60 mL/min/1. 73 [...] interpretive data was last reviewed 2021. Blood 04/28/2024 5:29 AM CDT 04/28/2024 5:50 AM CDT Doris Castro MD LAB BLOOD ORDERABLES Fi nal Result Performing Organization Address City/[facility]/ZIP Co de Phone Number [facility] Department [place] [address] * (ABNORMAL) Hepatic function panel (04/28/2024 5:29 AM CDT) [facility] Bilirubin, total 0.2 0.1 - 1.2 mg/dL Bilirubin, direct <0.2 0.1 - 0.3 mg/dL [facility] Protein, pl 7.1 6.5 - 8.5 g/dL [facility] Albumin 3.3(L) 3.5 - 5.0 g/dL [facility] Alk phos 63 40 - 130 Units/L [facility] ALT 16 7 - 55 Units/L [facility] AST 39 10 - 50 Units/L [facility] Blood 04/28/2024 5:29 AM CDT 04/28/2024 5:50 AM CDT Doris Castro MD LAB BLOOD ORDERABLES Fi nal Result [facility] Department [place] [address] * Basic metabolic panel (04/28/2024 5:29 AM CDT) [facility] Sodium 142 135 - 145 mmol/L Potassium, pl 4.1 3.3 - 4.9 mmol/L [facility] Chloride 108 97 - 110 mmol/L [facility] CO2 25 22 - 32 mmol/L [facility] Anion gap 9 2 - 15 mmol/L [facility] BUN 11 6 - 25 mg/dL [facility] Creatinine 1.00 0.80 - 1.30 mg/dL [facility] Glucose 87 70 - 199 mg/dL [facility] Comment: Interpretive Data Fasting glucose >/= [...] interpretive data was last revised 2022. Calcium 8.6 8.5 - 10.3 mg/dL [facility] Blood 04/28/2024 5:29 AM CDT 04/28/2024 5:50 AM CDT Doris Castro MD LAB BLOOD ORDERABLES Fi nal Result Performing Organization Address [facility] de Phone Number [facility] [employer] [place] [address] * Acetaminophen level (04/28/2024 4:42 AM CDT) Acetaminophen <5 <=5 mcg/mL Comment: Interpretive Data Significant hepatic injury may occur and treatment with n-acetyl cysteine is generally recommended if the acetaminophen level exceeds: 150 mcg/mL at 4 hours after ingestion ??75 mcg/mL at 8 hours after ingestion ??38 mcg/mL at 12 hours after ingestion ??19 mcg/mL at 16 hours after ingestion Consult toxicology or poison control ([phone]) for unknown ingestion time. Current interpretive data was last revised 2023. Blood 04/28/2024 4:42 AM CDT 04/28/2024 4:59 AM CDT Vin Prince MD LAB BLOOD ORDERABLES Final Result Performing Organization Address [facility] Co de Phone Number [facility] [employer] [place] [address] * (ABNORMAL) Differential, auto (04/28/2024 4:18 AM CDT) Neutrophil abs 1.4(L) 1.5 - 6.5 K/cumm Imm gran abs 0.0 0.0 - 0.1 K/cumm [facility] Lymphocyte abs 1.0 0.8 - 3.3 K/cumm [facility] Monocyte abs 0.4 0.2 - 0.8 K/cumm [facility] Eosinophil abs 0.1 0.0 - 0.5 K/cumm [facility] Basophil abs 0.0 0.0 - 0.1 K/cumm [facility] Neutrophil pct 48.0 % [facility] Comment: Interpretive Data Percent cell count reference ranges are not reported, since discordance with absolute values may lead to misinterpretation of CBC data. Current Interpretive Data was last revised on 2017. Imm gran pct 0.7 % [facility] Comment: Interpretive Data Percent cell count reference ranges are not reported, since discordance with absolute values may lead to misinterpretation of CBC data. Current Interpretive Data was last revised on 2017. Lymphocyte pct 35.3 % [facility] Comment: Interpretive Data Percent cell count reference ranges are not reported, since discordance with absolute values may lead to misinterpretation of CBC data. Current Interpretive Data was last revised on 2017. Monocyte pct 12.2 % [facility] Comment: Interpretive Data Percent cell count reference ranges are not reported, since discordance with absolute values may lead to misinterpretation of CBC data. Current Interpretive Data was last revised on 2017. Eosinophil pct 3.5 % [facility] Comment: Interpretive Data Percent cell count reference ranges are not reported, since discordance with absolute values may lead to misinterpretation of CBC data. Current Interpretive Data was last revised on 2017. Basophil pct 0.3 % [facility] Comment: Interpretive Data Percent cell count reference ranges are not reported, since discordance with absolute values may lead to misinterpretation of CBC data. Current Interpretive Data was last revised on 2017. Blood 04/28/2024 4:18 AM CDT 04/28/2024 4:59 AM CDT us Vin Prince MD LAB BLOOD ORDERABLES Final Result [facility] Department [place] [address] * (ABNORMAL) CBC with auto differential (04/28/2024 4:18 AM CDT) WBC 2.9(L) 3.8 - 9.9 K/cumm Hgb 11.6(L) 13.0 - 17.5 g/dL [facility] Hct 37.3(L) 38.9 - 50.3 % [facility] Plt 86(L) 150 - 400 K/cumm [facility] MPV 10.4 9.1 - 12.3 fL [facility] RBC 4.46 4.30 - 5.80 M/cumm [facility] MCV 83.6 81.3 - 96.4 fL [facility] MCH 26.0(L) 27.1 - 33.3 pg [facility] MCHC 31.1(L) 32.3 - 35.7 g/dL [facility] RDW CV 15.1(H) 11.1 - 14.9 % [facility] RDW SD 45.4 35.7 - 48.1 fL [facility] NRBC abs 0.00 0.00 - 0.01 K/cumm [facility] Blood 04/28/2024 4:18 AM CDT 04/28/2024 4:59 AM CDT Vin Prince MD LAB BLOOD ORDERABLES Final Result [facility] Department [place] [address] * CT Head and Cervical Spine WO Contrast (04/28/2024 4:03 AM CDT) Anatomical Region Laterality Modality Head and Neck N/A Computed Tomogra phy 04/28/2024 4:12 AM CDT Impressions 04/28/2024 8:35 AM CDT 1. No acute intracranial process. 2. No evidence of acute fracture in the cervical spine. Dictated by: Henrique Lo MD The radiology attending physician has personally reviewed this study, and had reviewed and/or edited this written report and agrees with it. Electronically signed by: Sheri Garcia M.D. Narrative 04/28/2024 8:35 AM CDT EXAMINATION: 1. CT head without contrast 2. CT of the cervical spine without contrast HISTORY: 28-year-old male. Threw himself down flight of stairs. TECHNIQUE: CT of the head was performed with images acquired from skull base to vertex without intravenous contrast. CT of the cervical spine was performed according to the standard protocol without intravenous contrast. COMPARISON: CT had 03/18/[address] cervical spine 03/02/2024 FINDINGS: HEAD: There is no acute intracranial hemorrhage. There is cerebral atrophy which is advanced for age and possibly related to chronic HIV infection. No mass effect or midline shift is present. The hobbs-white matter differentiation is normal. The visualized portions of the orbits are normal. The visualized portions of the mastoids are normal. There is mild multifocal paranasal sinus disease involving the bilateral maxillary sinuses and sphenoid sinuses. No fractures are identified. ?? CERVICAL SPINE: Reversal of the cervical lordosis which is likely positional. Alignment of the cervical spine is otherwise normal. ??There is no acute fracture. Vertebral bodies are normal in height without compression fractures. Intervertebral disk heights are normal. The craniocervical junction is normal. Limited views of the skull base appear normal. The sphenoid sinus is well aerated. No soft tissue abnormality is identified. The disks are normal in configuration. There is no facet arthropathy. There is no uncovertebral joint disease. There is no neuroforaminal stenosis. There is no spinal canal stenosis. Procedure Note Sheri Garcia MD - 04/28/2024 EXAMINATION: 1. CT head without contrast 2. CT of the cervical spine without contrast HISTORY: 28-year-old male. Threw himself down flight of stairs. TECHNIQUE: CT of the head was performed with images acquired from skull base to vertex without intravenous contrast. CT of the cervical spine was performed according to the standard protocol without intravenous contrast. COMPARISON: CT had 03/18/[address] cervical spine 03/02/2024 FINDINGS: HEAD: There is no acute intracranial hemorrhage. There is cerebral atrophy which is advanced for age and possibly related to chronic HIV infection. No mass effect or midline shift is present. The hobbs-white matter differentiation is normal. The visualized portions of the orbits are normal. The visualized portions of the mastoids are normal. There is mild multifocal paranasal sinus disease involving the bilateral maxillary sinuses and sphenoid sinuses. No fractures are identified. CERVICAL SPINE: Reversal of the cervical lordosis which is likely positional. Alignment of the cervical spine is otherwise normal. There is no acute fracture. Vertebral bodies are normal in height without compression fractures. Intervertebral disk heights are normal. The craniocervical junction is normal. Limited views of the skull base appear normal. The sphenoid sinus is well aerated. No soft tissue abnormality is identified. The disks are normal in configuration. There is no facet arthropathy. There is no uncovertebral joint disease. There is no neuroforaminal stenosis. There is no spinal canal stenosis. IMPRESSION: 1. No acute intracranial process. 2. No evidence of acute fracture in the cervical spine. Dictated by: Henrique Lo MD The radiology attending physician has personally reviewed this study, and had reviewed and/or edited this written report and agrees with it. Electronically signed by: Sheri Garcia M.D. Doris Castro MD IM CT PROCEDURES Final Result * XR Chest 1 Vw Portable (04/28/2024 3:17 AM CDT) Anatomical Region Laterality Modality Body, Chest N/A Computed Radiogr aphy 04/28/2024 3:43 AM CDT Impressions 04/28/2024 7:57 AM CDT Comparison is made to prior chest radiograph 04/14/2024. Normal cardiomediastinal silhouette. No pulmonary consolidation, pleural effusion, or pneumothorax. Dictated by: Madison Ordonez MD The radiology attending physician has personally reviewed this study, and had reviewed and/or edited this written report and agrees with it. Electronically signed by: Jorge Ching M.D. Narrative 04/28/2024 7:57 AM CDT EXAMINATION: 1 view chest radiograph Procedure Note Jorge Ching MD - 04/28/2024 EXAMINATION: 1 view chest radiograph IMPRESSION: Comparison is made to prior chest radiograph 04/14/2024. Normal cardiomediastinal silhouette. No pulmonary consolidation, pleural effusion, or pneumothorax. Dictated by: Madison Ordonez MD The radiology attending physician has personally reviewed this study, and had reviewed and/or edited this written report and agrees with it. Electronically signed by: Jorge Ching M.D. us Doris Castro MD IMG XR PROCEDURES Final Result * eGFR (04/28/2024 3:01 AM CDT) eGFR >90 >=60 mL/min/1. 73 [...] interpretive data was last reviewed 2021. Blood 04/28/2024 3:01 AM CDT 04/28/2024 3:25 AM CDT Doris Castro MD LAB BLOOD ORDERABLES Fi nal Result [facility] [employer] [place] [address] * Salicylate level (04/28/2024 3:01 AM CDT) Salicylate <9.0 <=9.0 mg/dL Comment: Interpretive Data Toxic: 30 mg/dL or greater. Current interpretive data was last revised 2023. Blood 04/28/2024 3:01 AM CDT 04/28/2024 3:25 AM CDT Doris Castro MD LAB BLOOD ORDERABLES Fi nal Result Performing Organization Address [facility] [place] [address] * Acetaminophen level (04/28/2024 3:01 AM CDT) Acetaminophen <5 <=5 mcg/mL Comment: Interpretive Data Significant hepatic injury may occur and treatment with n-acetyl cysteine is generally recommended if the acetaminophen level exceeds: 150 mcg/mL at 4 hours after ingestion ??75 mcg/mL at 8 hours after ingestion ??38 mcg/mL at 12 hours after ingestion ??19 mcg/mL at 16 hours after ingestion Consult toxicology or poison control ([phone]) for unknown ingestion time. Current interpretive data was last revised 2023. Blood 04/28/2024 3:01 AM CDT 04/28/2024 3:25 AM CDT Doris Castro MD LAB BLOOD ORDERABLES Fi nal Result Performing Organization Address [facility] [place] [address] * Ethanol (04/28/2024 3:01 AM CDT) Ethanol <10 <=10 mg/dL Comment: Hemolyzed; result may be falsely decreased Interpretive Data Legal limit of intoxication > or = 80 mg/dL Levels > or = 400 mg/dL are potentially TOXIC. Current interpretive data was last revised on 2018. Blood 04/28/2024 3:01 AM CDT 04/28/2024 3:25 AM CDT Doris Castro MD LAB BLOOD ORDERABLES Fi nal Result Performing Organization Address City/[facility] Co de Phone Number [facility] [place] [employer] [place] [address] * (ABNORMAL) Hepatic function panel (04/28/2024 3:01 AM CDT) Bilirubin, total 0.3 0.1 - 1.2 mg/dL Bilirubin, direct See Comment 0.1 - 0.3 mg/dL [facility] Comment:Credited; Hemolyzed Specimen Protein, pl 7.5 6.5 - 8.5 g/dL [facility] Albumin 3.3(L) 3.5 - 5.0 g/dL [facility] Alk phos 56 40 - 130 Units/L [facility] Comment:Hemolyzed; result ma y be falsely decreased ALT See Comment 7 - 55 Units/L [facility] Comment:Credited; Hemolyzed Specimen AST See Comment 10 - 50 Units/L [facility] Comment:Credited; Hemolyzed Specimen Blood 04/28/2024 3:01 AM CDT 04/28/2024 3:25 AM CDT Doris Castro MD LAB BLOOD ORDERABLES Fi nal Result Performing Organization Address City/[facility]/ZIP Co de Phone Number [facility] [place] [employer] [place] [address] * Basic metabolic panel (04/28/2024 3:01 AM CDT) Sodium 139 135 - 145 mmol/L Potassium, pl See Comment 3.3 - 4.9 mmol/L [facility] Comment:Credited; Hemolyzed Specimen Chloride 107 97 - 110 mmol/L [facility] CO2 23 22 - 32 mmol/L [facility] Anion gap 9 2 - 15 mmol/L [facility] BUN 12 6 - 25 mg/dL [facility] Creatinine 0.94 0.80 - 1.30 mg/dL [facility] Glucose 81 70 - 199 mg/dL [facility] Comment: Interpretive Data Fasting glucose >/= [...] Calcium 8.8 8.5 - 10.3 mg/dL [facility] Blood 04/28/2024 3:01 AM CDT 04/28/2024 3:25 AM CDT Doris Castro MD LAB BLOOD ORDERABLES [facility] Result [facility] Department [place] [address] * ECG 12-LEAD (04/28/2024 2:41 AM CDT) Narrative [facility] - 04/28/2024 2:41 AM CDT Vin Prince MD ? 04/28/2024 ??2:42 AM ECG 12 lead Date/Time: 04/28/2024 2:41 AM Performed by: Vin Prince MD Authorized by: Doris Castro MD ?? Rate: ??ECG rate: ??78 ??ECG rate assessment: normal ?? Rhythm: ??Rhythm: sinus rhythm ?? Ectopy: ??Ectopy: none ?? QRS: ??QRS axis: ??Normal ??QRS intervals: ??Normal Conduction: ??Conduction: normal ?? ST segments: ??ST segments: ??Normal T waves: ??T waves: normal ?? Previous ECG: ??Previous ECG: ??Unavailable Interpretation: ??Interpretation: normal ?? Recommended Follow-up: ??Recommended follow up: further workup in the ED ?? Procedure Note Vin Prince MD - 04/28/2024 2:41 AM CDT Procedure ECG 12 lead Date/Time: 04/28/2024 2:41 AM Performed by: Vin Prince MD Authorized by: Doris Castro MD Rate: ECG rate: 78 ECG rate assessment: normal Rhythm: Rhythm: sinus rhythm Ectopy: Ectopy: none QRS: QRS axis: Normal QRS intervals: Normal Conduction: Conduction: normal ST segments: ST segments: Normal T waves: T waves: normal Previous ECG: Previous ECG: Unavailable Interpretation: Interpretation: normal Recommended Follow-up: Recommended follow up: further workup in the ED Vin Prince MD 04/28/24 0242 us Doris Castro MD ECG ORDERABLES Final R esult [facility] documented in this encounter Visit Diagnoses Diagnosis Suicide attempt (HCC)- Primary Suicide and self-inflicted injury by unspecified means Suicide attempt by benzodiazepine overdose (HCC) Methamphetamine use disorder, moderate (HCC) Cocaine use Borderline personality disorder, rule out other organic causes of unusual pEX/MSE Borderline personality disorder Asymptomatic HIV infection, with no history of HIV-related illness (HCC) documented in this encounter Administered Medications Inactive Administered Medications - up to 3 most recent administrations Medication Order MAR Action Action Date Dose Rate Site azeuaoivdya-wwacytylvusam-zvhbej vir (BIKTARVY) 50-200-25 mg per tablet 1 tablet 1 tablet, oral, Once, On Sun04/28/24 at 0734, For 1 dose, May be dissolved in 240 mL of water. Give 2 hrs before or 6 hrs after MVI, antacids, or other products containing sucralfate, magnesium, aluminum, iron, or zinc., Indications: HIV infectionIndications:HIV infection Given 04/28/2024 8:53 AM CDT 1 tablet kuoaumtpjws-mqquyzfgmsplb-oobosk vir (BIKTARVY) 50-200-25 mg per tablet 1 tablet 1 tablet, oral, Daily, First dose on Sun04/29/24 at 0900, May be dissolved in 240 mL of water. Give 2 hrs before or 6 hrs after MVI, antacids, or other products containing sucralfate, magnesium, aluminum, iron, or zinc., Indications: HIV infectionIndications:HIV infection diphenhydrAMINE (BENADRYL) 50 mg/mL injection 25 mg 25 mg, intravenous, Administer over 2 Minutes, Once, On Sun04/28/24 at 0315, For 1 dose Given 04/28/2024 3:34 AM CDT 25 mg documented in this encounter Active and Recently Administered Medications Times are shown in CDT. Scheduled Medication Order 04/26/2024 04/27/2024 04/28/2024 pgxkbaqtsqy-txmninhsemben-awdasm vir (BIKTARVY) 50-200-25 mg per tablet 1 tablet (COMPLETED) 1 tablet, oral, Once, On Sun04/28/24 at 0734, For 1 dose, May be dissolved in 240 mL of water. Give 2 hrs before or 6 hrs after MVI, antacids, or other products containing sucralfate, magnesium, aluminum, iron, or zinc., Indications: HIV infection 0853 (Given - Provid er: Larry Barros RN) vteumdcgras-urnondltujikk-pvgkpu vir (BIKTARVY) 50-200-25 mg per tablet 1 tablet 1 tablet, oral, Daily, First dose on Sun04/29/24 at 0900, May be dissolved in 240 mL of water. Give 2 hrs before or 6 hrs after MVI, antacids, or other products containing sucralfate, magnesium, aluminum, iron, or zinc., Indications: HIV infection diphenhydrAMINE (BENADRYL) 50 mg/mL injection 25 mg (COMPLETED) 25 mg, intravenous, Administer over 2 Minutes, Once, On Sun04/28/24 at 0315, For 1 dose 0334 (Given - Provid er: Kelsea Nina RN) documented in this encounter Orders Medications Ordered That Prasad ht Not Have Been Administered Count Last Ordered Date First Ordered Date dhvxtzxpskg-txiukgtacdcfc-ko nofovir (BIKTARVY) 50-200-25 mg per tablet 1 tablet 1 04/28/2024 Consult Count Last Ordered Date First Orde red Date IP CONSULT TO PSYCHIATRY 1 04/28/2024 IP CONSULT TO SOCIAL WORK 1 04/28/2024 documented in this encounter Care Teams Optical Instrument Inspector Relationship Specialty Start Date End Date Mady Sullivan MD [id number] [address] PCP - General Infectious Diseases 10/12/23 No, Physician 10/12/23 documented as of this encounter
--- OUTSIDE RECORDS SUMMARY | 2024-08-10 03:33 | XMS_ITS | Encounter Summary ---
Author Organization [facility] Healthcare Address [address] [place] [address] Care Team Providers Care Bottling Machine Operator Name Role Phone Mady Sullivan MD Primary Care Provider No, Physician Unavailable Nguyen Stephenson RN Unavailable Reason for Visit * Reason Comments Chart Review Encounter Details Date Type Department Care Team (Late st Contact Info) Description 04/11/2024 SHOP/CHAP Initial Eligibility Review [facility] OP CASE MANAGEMENT [address] [place] [address] Nguyen Stephenson, RN [address] [facility] [address] [place] [address] Social History Tobacco Use Types Packs/Day Years Used Date Smoking Tobacco: Former Cigarettes Passive Smoke Exposure: Current Smokeless Tobacco: Never [facility] Utilities Answer Date Recorded In the past 12 months has [facility] [employer], gas, oil, or water [employer] threatened to shut off services in your [...] How often do you attend chur or tenriism services? Never 04/07/2024 Do you belong to any clubs o r organizations such as latter-day groups, unions, fraternal or athletic groups, or [...] Date Recorded PHQ-2 Total Score 4 04/07/2024 [facility] Occupat ionid Health - Occupational Stress Questionnaire Answer Date [...] living in a longterm (including now)? 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 Answer Date of Assessment Author No 02/24/2024 10:18 AM CDT Manda Hardinia, ENERGY RISK MANAGEMENT ANALYST * Are you blind or do you have serious difficulty seeing, even when wearing glasses? Answer Date of Assessment Author No 02/24/2024 10:18 AM CDT Manda Hardinricia, ENERGY RISK MANAGEMENT ANALYST * Do you have serious difficulty walking or climbing stairs? Answer Date of Assessment Author No 02/24/2024 10:18 AM CDT Manda Hardin, ENERGY RISK MANAGEMENT ANALYST * Do you have serious difficulty dressing or bathing? Answer Date of Assessment Author No 02/24/2024 10:18 AM CDT Manda Hardinia, ENERGY RISK MANAGEMENT ANALYST * Because of a physical, mental, or emotional condition, do you have serious difficulty doing errandsalone such as visiting the doctor? Answer Date of Assessment Author No 02/24/2024 10:18 AM CDT Manda Hardin, ENERGY RISK MANAGEMENT ANALYST documented as of this encounter Mental Status [...] documented as of this encounter Care Teams Bottling Machine Operator Relationship Specialty Start Date End Date Mady Sullivan MD [address] [facility] [address] [place] [address] PCP - General Infectious Diseases 10/12/23 No, Physician 10/12/23 Nguyen Stephenson, RN [address] [facility] [address] [place] [address] SHOP Outpatient Industrial Pharmacist 04/11/24 04/14/24 documented as of this encounter
--- OUTSIDE RECORDS SUMMARY | 2024-08-10 03:33 | XMS_ITS | Encounter Summary ---
Author Organization [facility] Healthcare Address [address] [place] [address] Care Team Providers Care Mop Maker Name Role Phone Mady Sullivan MD Primary Care Provider No, Physician Unavailable Reason for Visit * Reason Comments Unsuccessful Phone Call 3 Encounter Details Date Type Department Care Team (Late st Contact Info) Description 04/15/2024 SHOP/CHAP Initial Outreach [facility] OP CASE MANAGEMENT [address] [place] [address] Nguyen Stephenson, VICTOR MANUEL [address] [facility] [address] [place] [address] Social History Tobacco Use Types Packs/Day Years Used Date Smoking Tobacco: Former Cigarettes Passive Smoke Exposure: Current Smokeless Tobacco: Never [facility] Utilities Answer Date Recorded In the past 12 months has [facility] [employer], gas, oil, or water [employer] threatened to shut off services in your [...] often do you attend chur ch or mormonism services? Never 04/07/2024 Do you belong to any clubs o r organizations such as temple groups, unions, fraternal or athletic groups, or [...] Date Recorded PHQ-2 Total Score 4 04/07/2024 [facility] of Occupat ionid Health - Occupational Stress [...] the money to buy more. Often true 09/16/20 24 Within the past 12 months, t [...] living in a group home (including now)? 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 Answer Date of Assessment Author No 02/24/2024 10:18 AM CDT Hardin, Manda Sherine, TAXONOMIST * Are you blind or do you have serious difficulty seeing, even when wearing glasses? Answer Date of Assessment Author No 02/24/2024 10:18 AM TAYOJose Hardin, Mandakrissy Basurto TAXONOMIST * Do you have serious difficulty walking or climbing stairs? Answer Date of Assessment Author No 02/24/2024 10:18 AM TAYOJose Hardin, Mandakrissy Basurto TAXONOMIST * Do you have serious difficulty dressing or bathing? Answer Date of Assessment Author No 02/24/2024 10:18 AM TAYOManda Ibrahim TAXONOMIST * Because of a physical, mental, or emotional condition, do you have serious difficulty doing errandsalone such as visiting the doctor? Answer Date of Assessment Author No 02/24/2024 10:18 AM Manda Mcintyre TAXONOMIST documented as of this encounter Mental Status * Because of a physical, mental, or emotional condition, do you have serious difficulty concentrating, remembering, or making decisions? (5 years old or older) Answer Entry Date Author No 02/24/2024 10:18 AM LAURO HardinManda ingram TAXONOMIST documented in this encounter Plan of Treatment Not on file documented as of this encounter Visit Diagnoses Not on filedocumented in this encounter Care Teams Mop Maker Relationship Specialty Start Date End Date Mady Sullivan MD [address] [facility] [address] [address] PCP - General Infectious Diseases 10/12/23 No, Physician 10/12/23 documented as of this encounter
--- OUTSIDE RECORDS SUMMARY | 2024-08-10 03:34 | XMS_ITS | Encounter Summary ---
Author Organization [facility] Healthcare Address [address] [place] [address] Care Team Providers Care Health Information Manager Name Role Phone Mady Sullivan MD Primary Care Provider No, Physician Unavailable Reason for Referral * Consultation (Routine) - Closed Specialty Diagnoses / Procedures Referred By Contac t Referred To Contact Infectious Diseases Diagnoses HIV disease (CMS/HCC) (HCC) Syphilis Jimmy Rodgers MD [address] [place] [address] Phone: tel: fax: [facility] (All Locations) Referral ID Status Reason Start Date Expiration Date V isits Requested Visits Authorized [id number] Closed Specialty Services Required 04/09/2024 05/09/2025 1 1 Question Answer If the required information is not in Epic, please scan this information into the chart prior to sending the referral. HIV - recent cd4 and viral load OR proof of positivity (ie: hiv magda with confirmatory result/western blot) Please select the performing region: [facility] (All Locations) [167] # of visits: 1 Reason for Visit * Reason Comments Suicidal Ideation * Auth/Cert (Routine) Specialty Diagnoses / Procedures Referred By Contac t Referred To Contact Diagnoses Suicidal ideation Dental abscess Methamphetamine use (CMS/HCC) (HCC) HIV infection, unspecified symptom status (HCC) Procedures na Referral ID Status Reason Start Date Expiration Date Visits Re quested Visits Authorized [id number] 1 1 Encounter Details Date Type Department Care Team (Late st Contact Info) Description 04/04/2024 9:22 AM CDT - 04/10/2024 2:24 PM CDT Hospital Encounter [facility] [address] [place] [address] Pardeep Montano MD 1 [facility] [address] [place] [address] Nadeem Locke MD [address] [place] [address] Jamie Gutiérrez MD [address] [place] [address] Vanessa Julian MD 1 [facility] [address] [place] [address] Con Lewis MD [address] [place] [address] Jimmy Rodgers MD [address] [place] [address] Dental abscess (Primary Dx); Suicidal ideation; Methamphetamine use (CMS/HCC) (HCC); HIV infection, unspecified symptom status (HCC); HIV disease (CMS/[facility]) ([facility]); Syphilis Discharge Disposition: Discharge to home or self care Social History Tobacco Use Types Packs/Day Years Used Date Smoking Tobacco: Former Cigarettes Passive Smoke Exposure: Current Smokeless Tobacco: Never [facility] Utilities Answer Date Recorded In the past 12 months has [employer] gas, oil, or water [employer] threatened to shut off services in your [...] you attend chur or latter day services? Never 04/07/2024 Do you belong to any clubs o r organizations such as sabianism groups, unions, fraternal or athletic groups, or [...] Date Recorded PHQ-2 Total Score 4 04/07/2024 [facility] - [...] any time in the past 12 m [facility], were you homeless or living in [...] on file Legal Sex Male 11:02 PM [employer] Gender Identity Not on file Sexual Orientation Not on file Occupation Industry Job Start Date Job End Date unemployed Not on file Not on file Not on file documented as of this encounter Last Filed Vital Signs Vital Sign Reading Time Taken Comments Blood Pressure 121/62 04/10/2024 7:55 AM CDT Pulse 70 04/10/2024 3:45 AM CDT Temperature 36.8 ??C (98.2 ??F) 04/10/2024 7:55 AM CD T Respiratory Rate 17 04/10/2024 7:55 AM CDT Oxygen Saturation 93% 04/10/2024 7:55 AM CDT Inhaled Oxygen Concentration - - Weight 81.6 kg (180 lb) 04/04/2024 5:10 PM CDT Height 182.9 cm (6' 0.01 ) 04/04/2024 5:10 PM CD T Body Mass Index 24.41 04/04/2024 5:10 PM CDT documented in this encounter Functional [...] Hardin MSW documented in this encounter Discharge Summaries * Jimmy Rodgers MD - 04/10/2024 2:24 PM CDT Inpatient Discharge Summary BRIEF OVERVIEW Admitting Provider: Nadeem Locke MD Discharge Provider: No att. providers found Primary Care Physician at Discharge: Mady Sullivan MD [phone] Admission Date: 04/04/2024 Discharge Date: 04/10/2024 Admission Location: [facility] Problems/Diagnoses: Principal Problem: Dental abscess Resolved Problems: No resolved hospital problems. DETAILS OF HOSPITAL STAY Presenting Problem/History of Present Illness: See below Hospital Course: From H&P: Phil Chase is a 28 y.o. male with a hx of HIV (CD4 230 03/18/2024, Viral load undetectable 02/26/2024),stimulant use disorder (amphetamine type) and borderline personality disorder who presentedto the ED on 04/04/2024 for suicidal ideation and facial swelling. As per documentation, patient was BIBEMS after patient was being detained by police for [facility] expressed he was planning to by suicide with a firearm. Patient reported returning to use of methamphetamine 4 days prior to presentation. Patient noted to be hyperactive in the ED. In the ED, - Vitals: T 37.1 ??C (98.7 ??F) BP 124/98 HR 110 RR 18 SpO2 100 %. - Labs: Elytes unremarkable, CBC unremarkable. UDS ordered. - Imaging: CT of the maxillofacial bones showing multiple prominent dental caries involving the right mandibular teeth. In particular, there are large caries involving the right mandibular 1st premolar and 1st molar with associated dental abscess involving the right 1st premolar which measures approximately 2.1 x 0.6 x 1.5 cm. There is no apparent erosion of the adjacent alveolar ridge. Marked overlying right facial cellulitis is noted.. - EKG: NA. Patient was started on ampicillin-sulbactam and received olanzapine for agitation. ENT consulted and oral abscess was drained in the ED. Patient was admitted to the medicine for further work-up, monitoring, and IV abx treatment. Patient seen at bedside in the ED and reports he first started feeling oral pain on the right side of his mouth about 2 days prior to presentation and started to notice swelling as well. Denies associated fevers, chills, n/v. States some improvement in pain since I&D with ENT, however still mild pain. States that prior to presentation he was planning to end his life via firearm, however was found by police. Confirms prior suicide attempts and states he has felt SI for about 2 months. Patient states he started smoking methamphetamine about 3 days prior to presentation, and had previously been without use for 100 days. Fatemeh other drug use including fentanyl and cocaine. States he has been unhoused for about 2 weeks. Was previously in sober living, however did not feel that it was the best place for him. Regarding his chronic conditions, patient reports he has not taken his Biktarvy in about 5 days, but is otherwise compliant. Hospital Course: #Mandibular Abscess s/p I&D Patient with right facial swelling and pain, with CT confirming mandibular abscess with overlying cellulitis, no evidence of osteomyelitis. Started on amp/sulbactam in the ED. Seen by ENT in the ED, now s/p I&D of abscess. Patient underwent dental extraction with OMFS on 04/08/2024. Patient tolerated procedure well. Abx course:amp/sulbactam 04/04-04/09, augmentin 04/10-04/13. -continue augmentin (EOT 04/13) -patient has appointment with [facility] sigala 8:30am on SundayApril 11 #Suicidal Ideation #borderline personality disorder Patient with history of multiple psychiatric hospitalizations, including for suicidal ideation/attempts. Patient endorsed SI once on the floor, stating he lost everything including his job and home. Home abilify, doxepin, and duloxetine were continued, as well as home hydroxyzine. Patient seen by psychiatry during admission stating that patient has had multiple ED presentation with chronic SI with plan/intent and that he does not meet criteria for inpatient psychiatric admission at this time.Concern that patient reports SI when seeking housing. As per psychiatry, 1:1 sitter and suicide precautions were discontinued. Social work was consulted for community mental health and housing resources. On 04/09 patient once again expressed SI after being told about discharge planning. Psych aware (please see note 04/09) and stated it is in line with patient's personality disorder and that acute psych admission is not indicated. -continue prior home regimen, no changes made while inpatient -encouraged follow up in the outpatient setting with psychiatry (previously was followed at [address] [place] [address] with Carrie Xiong NP, phone number [phone]). #HIV Patient diagnosed in 2018. Stable on biktarvy at home, however reports he has not taken in 5 days. Last CD4 03/18/2024 was 230 (17%) and viral load 02/26/2024 not detected. Repeat during admission showed CD4 absolute 138 (14%), viral load > 4000. ID consulted, with recommendation for genotype testing and outpatient follow up. Most likely detectable viral load is related to non adherence to medication. ID also recommending bactrim ppx given low cd4 and hx of non adherence. -outpatient ID follow up on 04/11/2024 -genotype ordered, to be followed outpatient to determine best plan for ART #Hx of syphilis, RPR 1:64 Patient with history of positive RPR and inpatient treatment with penicillin. RPR during this admission 1:64, last RPR titer 02/26/2024 also 1:64. RPR titers have not reduced as expected given treatment, however prior ID documentation stating that this may occur in patient with HIV. ID aware and stating that given the titer has not increased, there is nothing to be done at this time and likely may be due to patient's HIV. -outpatient ID follow up as above #Stimulant use disorder, amphetamine type Patient reporting recent return to use. Denies other drug use, however documentation of prior fentanyl use noted. Patient with psychomotor agitation on exam which may be consistent with methamphetamine withdrawal. UDS presumptive positive for amphetamine, cocaine, and fentanyl, confirmation not ordered. Withdrawal symptoms were monitored. Patient amenable to outpatient rehab. -encouraged outpatient substance use rehab Active Issues Requiring Follow-up: Test Results Pending at Discharge: Pending Labs Order Current Status RPR Blood In process Operative Procedures Performed: Other Procedures: Pertinent Test Results: Discharge Details Physical Exam at Discharge: Discharge Condition: good Pulse: 70 Resp: 17 BP: 121/62 Temp: 36.8 ??C (98.2 ??F) Weight: 81.6 kg (180 lb) Pertinent Exam Findings at Discharge: Gen: NAD, Alert and oriented x3 CV: RRR, nl S1 and S2 no murmurs/rubs/gallops Pulm: CTAB Abd: Soft NT, ND + BS Ext:no lower extremity edema bilaterally Neuro: no focal deficits Pysch: nl affect and mood Discharge Disposition: Discharge to home or self care Code Status at Discharge: full Discharge Instructions: Activity Instructions Discharge activity: Resume normal activity Discharge activity: Resume normal activity Diet Instructions Adult Discharge Diet Diet Type: Return to previous diet Other Instructions Call provider for: Temperature -Temperature greater than 101 degrees F Call provider for: difficulty breathing or chest pain Call provider for: extreme fatigue Call provider for: persistent nausea or vomiting Call provider for: headache, visual disturbances, weakness and speech changes Discharge Medications: Current Medications TAKE these medications Biktarvy 50-200-25 mg tablet Take 1 tablet by mouth daily For: HIV Generic drug: nzyuuocdqme-tfngqollipcvj-zuabaqnhm Notes to patient: Antiviral/ HIV Side effects: fast breathing, abnormal heartbeat, fatigue HYDROcodone-acetaminophen 5-325 mg per tablet Take 1 tablet by mouth every 6 (six) hours as needed for pain For: pain Commonly known as: NORCO Notes to patient: Pain control Side effects: nausea/vomiting, dizziness, lightheadedness, liver damage *Do not take more than 4,000 mg of Tylenol in a 24-hour period. Check other medications for acetaminophen* sulfamethoxazole-trimethoprim 800-160 mg per tablet Take 1 tablet (160 mg of trimethoprim total) by mouth daily For: Prophylaxis, Medical Commonly known as: BACTRIM DS Notes to patient: Antibiotic, treats or prevents bacterial infections Side effects: sunburn easily, low blood sugar, diarrhea, dizziness, purple patches on skin *Take the entire course/dose of the antibiotic, even if you are feeling better* ASK your doctor about these medications amoxicillin-clavulanate 875-125 mg per tablet Take 1 tablet by mouth 2 (two) times a day for 10 days Commonly known as: AUGMENTIN Ask about: Should I take this medication? Outpatient Follow-Up: Contact Information for Follow-ups [facility] (All Locations) Next Steps: Call Instructions: Call [phone] to verify your appointment. Questions: If the required information is not in Epic, please scan this information into the chart prior to sending the referral.: HIV - recent cd4 and viral load OR proof of positivity (ie: hiv magda with confirmatory result/western blot) Please select the performing region: [facility] (All Locations) # of visits: 1 Referral Status: Unable to Contact Mady Sullivan MD Specialty: Infectious Diseases, Internal Medicine Relationship: PCP - General Arron SHONA PENG JENNA [address] [facility] [address] Next Steps: Call Instructions: It will be important to follow up with your PCP (Mady Sullivan MD, ) on Sunday. Retail Info [address] [facility] [address] Next Steps: Go to Instructions: You have the following appointments scheduled: Appt with [facility] for dentistry at 8:30am and with ID at 9:30am on April 11 SPINNER documented in this encounter Discharge Instructions * Discharge Instructions* Brandy Beyer MD - 04/09/2024 2:41 PM CDT Dear Mr. Phil Chase, You were admitted to [facility] from 04/04/2024 to 04/09/2024 for dental abscess. We evaluated you thoroughly including imaging and labs, and treated you with dental extraction and antibiotics. We are discharging you with medications as per the list below. It will be important to follow up with your PCP (Mady Sullivan MD, ) on Sunday. You have the following appointments scheduled: Appt with [facility] for dentistry at 8:30am and with ID at 9:30am on April 11 Your primary care provider is Mady Sullivan MD and can be reached at [phone]. New medications: While you were here, we started you on several new medications. Please take the following medications: Amoxicillin-clavulanate two times per day through April 13 Changes to old medication: Please continue Biktarvy at this time and discuss with your ID doctor Unless otherwise indicated, please continue your home medications as previously prescribed Other follow-up items: You have an appointment with [facility] at 8:30am for dentistry on 04/11/2024 You have an appointment with Jia at 9:30am for infectious disease follow up on 04/11/2024 Please follow up with your primary care provider (PCP) within the next two weeks so that they can check in with you and make sure you are still doing well after you are discharged. Regarding your dental extraction: You may return to your regular diet as tolerated, but stick to foods that are soft for the first 2-3 days. Avoid hard crunchy foods until the surgical area is healed. DO NOT swish, spit, use straws, or do forceful sucking motions for at least 1 week after surgery. DO NOT smoke cigarettes or vape for at least 3 weeks. Avoid alcohol as this may impair the healing process for at least 1 week. Pain medications may cause nausea or vomiting if taken on an empty stomach. Ice packs may be used on the outside of the face near the surgical areas for the next 24-48 hours in 30 minute increments. Apply ice for 30 minutes on and 30 minutes off to help with pain and swelling. It is common to bruise, swell, have a sore throat, or even run a low-grade fever for the next few days after surgery. Swelling and bruising tend to peak 72 hours after surgery, but may last up to a week or longer. These symptoms will gradually improve over the next week. 1 teaspoon of salt in an 8 oz glass of warm water can begin 1 day after surgery and can be performed 2-3 times daily. DO NOT rinse, spit, or swish forcefully but instead allow the solution to gently exit out of the mouth. Numbness after surgery may last a few hours as this is common with the local numbing injections used during surgery. Bone spicules which are tiny flecks of bone residing in the socket(s) of the surgical area may workthemselves loose and come to the surface. They can feel sharp or have a white appearance and look similar to a piece of tooth. These pieces work their way out of the socket(s) naturally and require no need for further assistance unless they come bothersome. In such cases please call our office for assistance. Other medications taken normally by the patient should continue as usually unless special instruction to do otherwise are given by the doctor. Please contact the office if you are experiencing: throbbing pain that doesn???t respond to medications, bleeding that continues even when you apply pressure, a fever that lasts for more than 24 hours after surgery, or trouble swallowing or breathing. You can reach the Oral Surgeon by calling the office at [phone]. We wish you the very best, [facility] [phone] * Attachments The following attachments cannot be sent through Care Everywhere. * Dental Abscess (General Information) (Icelandic) documented in this encounter Medications at Time [...] Refills Last Filled Start Date End Date ARIPiprazole (ABILIFY) 10 mg tabletIndications :Depression Treatment Adjunct Take 1 tablet (10 mg total) by mouth daily 30 tablet 04/10/2024 4 HYDROcodone-aceta minophen (NORCO) 5-325 mg per tablet Take 1 tablet by mouth every 6 (six) hours as needed for pain 10 tablet 04/09/2024 4 ARIPiprazole (ABILIFY) 10 mg tabletIndications :Depression Treatment Adjunct Take 1 tablet (10 mg total) by mouth daily 30 tablet 04/10/2024 4 amoxicillin-clavu lanate (AUGMENTIN) 875-125 mg per tablet Take 1 tablet by mouth 2 (two) times a day for 10 days 20 tablet 04/09/2024 4 sulfamethoxazole- trimethoprim (BACTRIM DS) 800-160 mg per tabletIndications :Prophylaxis, Medical Take 1 tablet (160 mg of trimethoprim total) by mouth daily 30 tablet 1 04/10/2024 4 bictegravir-emtri citabine-tenofovi r (Biktarvy) 50-200-25 mg tabletIndications :HIV infection Take 1 tablet by mouth daily 30 tablet 3 04/10/2024 4 documented in this encounter Discharge Disposition Disposition Code Departure Means Destination Comment s Discharge to home or self care documented in this encounter Progress Notes * Ernesto Hardin MD PhD - 04/10/2024 7:18 AM CDT MEDICINE DAILY PROGRESS NOTE Date of Admission: 04/04/2024 Date of Service: 04/10/24 CARE TEAM Patient: Phil Chase Room: [id number] Admitting physician: Con Lewis MD Service: Medical Primary Care Physician: Mady Sullivan MD SUBJECTIVE CHIEF COMPLAINT Chief Complaint Patient presents with Suicidal Ideation BRIEF HPI Phil Chase is a 28 y.o. male with a hx of HIV (CD4 230 03/18/2024, Viral load undetectable 02/26/2024),stimulant use disorder (methamphetamine) and borderline personality disorder who presented to the ED on 04/04/2024 for suicidal ideation and facial swelling. On CT patient found to have dental a bscess for which ENT was consulted and I&D was performed. Patient admitted to medicine for treatment with IV abx. 24-HOUR INTERVAL HISTORY -CARMEN HARTS - Pain level 4/10 this morning - Switched to PO augmentin - Plan for discharge to care home today Brief Plan: -continue augmentin, will complete 10 day total course of abx -outpatient ID follow up for genotype testing results - has appt with Jia on 04/11 -psych aware of SI, state it is in line with patient's known personality disorder, please see psychnote 04/09 SUBJECTIVE Negative except for noted above ALLERGIES No Known Allergies CURRENT MEDICATIONS Scheduled Medications: amoxicillin-clavulanate, 875 mg of amoxicillin, oral, BID ARIPiprazole, 10 mg, oral, Daily xvbqahcmzze-giljfwvbadbjc-rqxjeahlo, 1 tablet, oral, Daily doxepin, 25 mg, oral, Nightly DULoxetine DR, 60 mg, oral, Daily enoxaparin, 40 mg, subcutaneous, Daily-2100 sodium chloride 0.9%, 0.5-20 mL, intra-catheter, Q8H [facility] sulfamethoxazole-trimethoprim, 160 mg of trimethoprim, oral, Daily PRN Medications: acetaminophen, 650 mg, 650 mg at 04/08/24 1346 OR HYDROcodone-acetaminophen, 1 tablet, 1 tabletat 04/09/24 2018 sodium chloride 0.9%, 30 mL hydrOXYzine, 50 mg, 50 mg at 04/07/242012 ondansetron ODT, 4 mg OR ondansetron, 4 mg ramelteon, 8 mg, 8 mg at 04/09/242017 sodium chloride 0.9%, 0.5-20 mL OBJECTIVE ROS Review of systems per HPI and otherwise all other systems are negative VITALS / I&Os 24hr Min/Max: Temp Min: 36.8 ??C (98.2 ??F) Max: 36.8 ??C (98.2 ??F) Pulse Min: 69 Max: 70 BP Min: 123/52 Max: 135/57 Resp Min: 18 Max: 18 SpO2 Min: 95 % Max: 98 % Most Recent: Vitals: 04/10/24 0345 BP: 125/62 Pulse: 70 Resp: 18 Temp: 36.8 ??C (98.2 ??F) SpO2: 97% Intake/Output Summary (Last 24 hours) at 04/10/2024 0718 Last data filed at 04/09/2024 2100 Gross per 24 hour Intake 418 ml Output 600 ml Net -182 ml PHYSICAL EXAM Constitutional: Well-developed, resting comfortably in bed HEENT: Moist MM, extraction site with mild clotting on surface, not active bleeding Cardiovascular: tachycardic, regular rhythm, S1/S2 normal. Pulmonary/Chest: Normal respiratory effort and breath sounds. No wheezes or rales. Abdominal: Soft, non-tender, non-distended. Normoactive bowel sounds. Musculoskeletal: No lower extremity edema. Neurological: alert and oriented x3, moves all extremities spontaneously Skin: Skin is warm and dry. Psychiatric: normal mood and affect LABS CBC Recent Labs Lab Units 04/09/24 2222 WBC K/cumm 2.8* HEMOGLOBIN g/dL 13.5 HEMATOCRIT % 42.6 PLATELETS K/cumm 283 NEUTROS PCT % 35.4 LYMPHS PCT % 50.0 MONOS PCT % 8.9 EOS PCT % 5.0 Chem Recent Labs Lab Units 04/09/24 2222 SODIUM mmol/L 138 POTASSIUM PLASMA mmol/L 4.2 CHLORIDE mmol/L 103 CO2 mmol/L 27 ANIONGAP mmol/L 8 BUN SERUM mg/dL 13 CREATININE mg/dL 1.06 GLUCOSE mg/dL 110 CALCIUM mg/dL 9.0 LFTs Recent Labs Lab Units 04/04/24 0939 ALK PHOS Units/L 87 BILIRUBIN TOTAL mg/dL 0.8 TOTAL PROTEIN g/dL 9.3* ALT Units/L 29 AST Units/L 47 Coags Recent Labs Lab Units 04/08/24 0028 APTT sec 31 INR 1.05 Cardiac Enzymes No results found for: TROPONINI Urine Analysis Recent Labs Lab Units 04/05/24 1153 COLOR U Yellow CLARITY U Clear SPEC GRAV U >1.042* PH, URINE 6.5 PROTEIN UR QL 1+* GLUCOSE URQL Negative KETONES UR Trace BLOOD UR Negative NITRITE UR Negative LEUKOCYTE ESTERASE UR Negative ABG Micro: CD4 and viral load pending UA pending OTHER STUDIES CT Facial Bones W Contrast Result Date: 04/04/2024 Right 1st premolar dental abscess with marked overlying facial cellulitis but no apparent signs of underlying osteomyelitis. Electronically signed by: Domenic Crawford MD ASSESSMENT & PLAN Phil Chase is a 28 y.o. male with hx of HIV (CD4 230 03/18/2024, Viral load undetectable 02/26/2024),stimulant use disorder (methamphetamine) and borderline personality disorder who presented to the ED on 04/04/2024 for suicidal ideation and facial swelling. On CT patient found to have dental abs cess for which ENT was consulted and I&D was performed. Patient admitted to the hospital for treatment with IV abx. #Mandibular Abscess s/p I&D Patient with right facial swelling and pain, with CT confirming mandibular abscess with overlying cellulitis, no evidence of osteomyelitis. Started on amp/sulbactam in the ED. Seen by ENT in the ED, now s/p I&D of abscess. Patient underwent dental extraction with OMFS on 04/08/2024. Patient tolerated procedure well. Abx course: (amp/sulbactam 04/04-04/09) Aumentin (04/10-04/20) -continue amp/sulbactam, plan to complete 10 day total course with transition to augmentin at discharge -OMFS discharge instructions to floor noted - patient on mechanical soft diet, no straws, no hot liquids for 24 hours, advised on smoking and alcohol avoidance in the outpatient setting #Suicidal Ideation #borderline personality disorder Patient with history of multiple psychiatric hospitalizations, including for suicidal ideation/attempts. When seen patient continues to endorse active SI. Patient seen by psychiatry during admission stating that patient has had multiple ED presentation with chronic SI with plan/intent and that he does not meet criteria for inpatient psychiatric admission at this time. As per psychiatry, ok to discontinue 1:1 sitter and suicide precautions. On 04/09 patient once again expressed SI after being told about discharge planning. Psych aware (please see note 04/09) and state it is in line with patient's personality disorder and that acute psych admission is not indicated. -home abilify, doxepin, and duloxetine continued -home hydroxyzine continued #HIV Patient diagnosed in 2018. Stable on biktarvy at home, however reports he has not taken in 5 days. Last CD4 03/18/2024 was 230 (17%) and viral load 02/26/2024 not detected. Repeat CD4 absolute 138 (14%), viral load > 4000. ID consulted, with recommendation for genotype testing and outpatient followup. Most likely detectable viral load is related to non adherence to medication. -continue home biktarvy with plan for patient to follow up with outpatient ID to further evaluate need for medication change -ID recommending bactrim ppx given low cd4 and hx of non adherence -outpatient ID appt scheduled for 04/11 #Hx of syphilis, RPR 1:64 Patient with history of positive RPR and inpatient treatment with penicillin. RPR during this admission 1:64, last RPR titer 02/26/2024 also 1:64. RPR titers have not reduced as expected given treatment, however prior ID documentation stating that this may occur in patient with HIV. ID aware and stating that given the titer has not increased, there is nothing to be done at this time. -outpatient follow up with ID #Stimulant use disorder, amphetamine type Patient reporting recent return to use. Denies other drug use, however documentation of prior fentanyl use noted. Patient with psychomotor agitation on exam which may be consistent with methamphetamine withdrawal. Patient amenable to discharge to rehabilitation facility for his substance use. -UDS presumptive positive for amphetamine, cocaine, and fentanyl, confirmation not ordered -CTM withdrawal symptoms -referrals placed, pending approval - Diet: Adult Diet Restricted; Mechanical Soft - DVT PPX: lovenox 40mg daily - Access:right PIV - PT/OT:pending referral approval - CODE STATUS: Full Code EMERGENCY CONTACT Contact: Extended Emergency Contact Information Primary Emergency Contact: Sarah Simpson Mobile Relation: Mother Ernesto Hardin MD. Ph.D. PGY3 Internal Medicine [facility] // [facility] Cosigned by Jimmy Rodgers MD at 04/10/2024 1:55 PM CDT Associated attestation - Jimmy Rodgers MD - 04/10/2024 1:55 PM CDT Attending Documentation I have seen and examined the patient on 04/10/24. I agree with the findings and plan of care as documented in the resident's/fellow's note. and as discussed with the resident/fellow. 28 yo hx of HIV with undetectable virus 03/15, stimulant use disorder here with SI and dental abscess/ # Dental Abscess A: s/p drainage by ENT and clinically improving. Swelling and pain improved. OMFS pulled two teeth with some reconstruction P: - - will discharge on augmentin # HIV A: CD4 dropped to 138 with now detectable viral load. Appreciate ID consult P: - will set up appt with [facility] - continue biktarvy and bactrim Discharge Planning I have spent 35 minutes on discharge planning activities. Time spent was on Coordination of care, Follow up , Counselling with patient/family, discharge exam, and parent/patient education. Jimmy Rodgers MD * Brandy Beyer MD - 04/09/2024 4:29 PM CDT MEDICINE DAILY PROGRESS NOTE Date of Admission: 04/04/2024 Date of Service: 04/09/24 CARE TEAM Patient: Phil Chase Room: 38 [id number] Admitting physician: Con Lewis MD Service: Medical Primary Care Physician: Mady Sullivan MD SUBJECTIVE CHIEF COMPLAINT Chief Complaint Patient presents with Suicidal Ideation BRIEF HPI Phil Chase is a 28 y.o. male with a hx of HIV (CD4 230 03/18/2024, Viral load undetectable 02/26/2024),stimulant use disorder (methamphetamine) and borderline personality disorder who presented to the ED on 04/04/2024 for suicidal ideation and facial swelling. On CT patient found to have dental a bscess for which ENT was consulted and I&D was performed. Patient admitted to medicine for treatment with IV abx. 24-HOUR INTERVAL HISTORY -JASMIN HART -patient reports continues to feel well after dental procedure -patient once again expressing active SI with primary team and social work, reporting access to firearm Brief Plan: -social work referral sent to [facility], pending response -continue amp/sulbactam, will complete 10 day total course of abx -outpatient ID follow up for genotype testing results - has appt with [facility] on 04/11 -psych aware of SI, state it is in line with patient's known personality disorder, please see psychnote 04/09 SUBJECTIVE Negative except for noted above ALLERGIES No Known Allergies CURRENT MEDICATIONS Scheduled Medications: ampicillin-sulbactam, 3 g, intravenous, Q6H KIMBERLEY ARIPiprazole, 10 mg, oral, Daily frhwweiuyjt-mxerdhtdxidit-halsovlfq, 1 tablet, oral, Daily doxepin, 25 mg, oral, Nightly DULoxetine DR, 60 mg, oral, Daily enoxaparin, 40 mg, subcutaneous, Daily-2100 sodium chloride 0.9%, 0.5-20 mL, intra-catheter, Q8H KIMBERLEY sulfamethoxazole-trimethoprim, 160 mg of trimethoprim, oral, Daily PRN Medications: acetaminophen, 650 mg, 650 mg at 04/08/24 1346 OR HYDROcodone-acetaminophen, 1 tablet, 1 tabletat 04/08/242047 sodium chloride 0.9%, 30 mL hydrOXYzine, 50 mg, 50 mg at 04/07/242012 ondansetron ODT, 4 mg OR ondansetron, 4 mg ramelteon, 8 mg, 8 mg at 09/17/24 2048 sodium chloride 0.9%, 0.5-20 mL OBJECTIVE ROS Review of systems per HPI and otherwise all other systems are negative VITALS / I&Os 24hr Min/Max: Temp Min: 36.5 ??C (97.7 ??F) Max: 36.8 ??C (98.2 ??F) Pulse Min: 63 Max: 69 BP Min: 114/56 Max: 135/57 Resp Min: 18 Max: 19 SpO2 Min: 95 % Max: 97 % Most Recent: Vitals: 04/09/24 1509 BP: 135/57 Pulse: Resp: 18 Temp: 36.8 ??C (98.2 ??F) SpO2: 95% Intake/Output Summary (Last 24 hours) at 04/09/2024 1630 Last data filed at 04/09/2024 1416 Gross per 24 hour Intake 776 ml Output 1000 ml Net -224 ml PHYSICAL EXAM Constitutional: Well-developed, resting comfortably in bed HEENT: Moist MM, extraction site with mild clotting on surface, not active bleeding Cardiovascular: tachycardic, regular rhythm, S1/S2 normal. Pulmonary/Chest: Normal respiratory effort and breath sounds. No wheezes or rales. Abdominal: Soft, non-tender, non-distended. Normoactive bowel sounds. Musculoskeletal: No lower extremity edema. Neurological: alert and oriented x3, moves all extremities spontaneously Skin: Skin is warm and dry. Psychiatric: normal mood and affect LABS CBC Recent Labs Lab Units 04/08/24 2047 WBC K/cumm 3.0* HEMOGLOBIN g/dL 13.3 HEMATOCRIT % 42.3 PLATELETS K/cumm 282 NEUTROS PCT % 34.7 LYMPHS PCT % 49.2 MONOS PCT % 9.4 EOS PCT % 5.7 Chem Recent Labs Lab Units 04/08/24 2047 SODIUM mmol/L 138 POTASSIUM PLASMA mmol/L 4.3 CHLORIDE mmol/L 103 CO2 mmol/L 28 ANIONGAP mmol/L 7 BUN SERUM mg/dL 15 CREATININE mg/dL 0.99 GLUCOSE mg/dL 81 CALCIUM mg/dL 8.9 LFTs Recent Labs Lab Units 04/04/24 0939 ALK PHOS Units/L 87 BILIRUBIN TOTAL mg/dL 0.8 TOTAL PROTEIN g/dL 9.3* ALT Units/L 29 AST Units/L 47 Coags Recent Labs Lab Units 04/08/24 0028 APTT sec 31 INR 1.05 Cardiac Enzymes No results found for: TROPONINI Urine Analysis Recent Labs Lab Units 04/05/24 1153 COLOR U Yellow CLARITY U Clear SPEC GRAV U >1.042* PH, URINE 6.5 PROTEIN UR QL 1+* GLUCOSE URQL Negative KETONES UR Trace BLOOD UR Negative NITRITE UR Negative LEUKOCYTE ESTERASE UR Negative ABG Micro: CD4 and viral load pending UA pending OTHER STUDIES CT Facial Bones W Contrast Result Date: 04/04/2024 Right 1st premolar dental abscess with marked overlying facial cellulitis but no apparent signs of underlying osteomyelitis. Electronically signed by: Domenic Crawford MD ASSESSMENT & PLAN Phil Chase is a 28 y.o. male with hx of HIV (CD4 230 03/18/2024, Viral load undetectable 02/26/2024),stimulant use disorder (methamphetamine) and borderline personality disorder who presented to the ED on 04/04/2024 for suicidal ideation and facial swelling. On CT patient found to have dental abs cess for which ENT was consulted and I&D was performed. Patient admitted to the hospital for treatment with IV abx. #Mandibular Abscess s/p I&D Patient with right facial swelling and pain, with CT confirming mandibular abscess with overlying cellulitis, no evidence of osteomyelitis. Started on amp/sulbactam in the ED. Seen by ENT in the ED, now s/p I&D of abscess. Patient underwent dental extraction with OMFS on 04/08/2024. Patient tolerated procedure well. Abx course: (amp/sulbactam 04/04-) -continue amp/sulbactam, plan to complete 10 day total course with transition to augmentin at discharge -OMFS discharge instructions to floor noted - patient on mechanical soft diet, no straws, no hot liquids for 24 hours, advised on smoking and alcohol avoidance in the outpatient setting #Suicidal Ideation #borderline personality disorder Patient with history of multiple psychiatric hospitalizations, including for suicidal ideation/attempts. When seen patient continues to endorse active SI. Patient seen by psychiatry during admission stating that patient has had multiple ED presentation with chronic SI with plan/intent and that he does not meet criteria for inpatient psychiatric admission at this time. As per psychiatry, ok to discontinue 1:1 sitter and suicide precautions. On 04/09 patient once again expressed SI after being told about discharge planning. Psych aware (please see note 9/18) and state it is in line with patient's personality disorder and that acute psych admission is not indicated. -home abilify, doxepin, and duloxetine continued -home hydroxyzine continued #HIV Patient diagnosed in 2018. Stable on biktarvy at home, however reports he has not taken in 5 days. Last CD4 03/18/2024 was 230 (17%) and viral load 02/26/2024 not detected. Repeat CD4 absolute 138 (14%), viral load > 4000. ID consulted, with recommendation for genotype testing and outpatient followup. Most likely detectable viral load is related to non adherence to medication. -continue home biktarvy with plan for patient to follow up with outpatient ID to further evaluate need for medication change -ID recommending bactrim ppx given low cd4 and hx of non adherence -outpatient ID appt scheduled for 04/11 #Hx of syphilis, RPR 1:64 Patient with history of positive RPR and inpatient treatment with penicillin. RPR during this admission 1:64, last RPR titer 02/26/2024 also 1:64. RPR titers have not reduced as expected given treatment, however prior ID documentation stating that this may occur in patient with HIV. ID aware and stating that given the titer has not increased, there is nothing to be done at this time. -outpatient follow up with ID #Stimulant use disorder, amphetamine type Patient reporting recent return to use. Denies other drug use, however documentation of prior fentanyl use noted. Patient with psychomotor agitation on exam which may be consistent with methamphetamine withdrawal. Patient amenable to discharge to rehabilitation facility for his substance use. -UDS presumptive positive for amphetamine, cocaine, and fentanyl, confirmation not ordered -CTM withdrawal symptoms -referrals placed, pending approval - Diet: Adult Diet Restricted; Mechanical Soft - DVT PPX: lovenox 40mg daily - Access:right PIV - PT/OT:pending referral approval - CODE STATUS: Full Code EMERGENCY CONTACT Contact: Extended Emergency Contact Information Primary Emergency Contact: Sarah Simpson Mobile Relation: Mother Brandy Beyer MD Internal Medicine PGY-1 Cosigned by Jimmy Rodgers MD at 04/09/2024 5:37 PM CDT Associated attestation - Jimmy Rodgers MD - 04/09/2024 5:37 PM CDT Attending Documentation I have seen and examined the patient on 04/09/24. I agree with the findings and plan of care as documented in the resident's/fellow's note. and as discussed with the resident/fellow. 28 yo hx of HIV with undetectable virus 03/15, stimulant use disorder here with SI and dental abscess/ # Dental Abscess A: s/p drainage by ENT and clinically improving. Swelling and pain improved. OMFS pulled two teeth with some reconstruction P: - - now on augmentin ding well. Plan for discharge to a rehab facility for substance abuse disorder # HIV A: CD4 dropped to 138 with now detectable viral load. Appreciate ID consult P: - will set up appt with [facility] - continue biktarvy and bactrim Jimmy Rodgers MD * Brandy Beyer MD - 04/08/2024 7:05 AM CDT MEDICINE DAILY PROGRESS NOTE Date of Admission: 04/04/2024 Date of Service: 04/08/24 CARE TEAM Patient: Phil Chase Room: [place] [id number] Admitting physician: Con Lewis MD Service: Medical Primary Care Physician: Mady Sullivan MD SUBJECTIVE CHIEF COMPLAINT Chief Complaint Patient presents with Suicidal Ideation BRIEF HPI Phil Chase is a 28 y.o. male with a hx of HIV (CD4 230 03/18/2024, Viral load undetectable 02/26/2024),stimulant use disorder (methamphetamine) and borderline personality disorder who presented to the ED on 04/04/2024 for suicidal ideation and facial swelling. On CT patient found to have dental a bscess for which ENT was consulted and I&D was performed. Patient admitted to medicine for treatment with IV abx. 24-HOUR INTERVAL HISTORY -NAEO, VSS -as per OMFS note, patient underwent Surgical extraction of teeth # 28 & 30 with buccal flap, bone removal and elevate teeth, smoothed bone, curetted granulation tissue reposition flap and closedwith 3-0 chromic gut sutures. -patient reports feeling well after dental procedure, some mild pain that responds to pain medication, no other complaints voiced -ID consult placed for detectable viral load and low cd4 count in the setting of non adherence Brief Plan: -social work referral sent to [facility], pending response -continue amp/sulbactam, will complete 10 day total course of abx -outpatient ID follow up for genotype testing results SUBJECTIVE Negative except for noted above ALLERGIES No Known Allergies CURRENT MEDICATIONS Scheduled Medications: ampicillin-sulbactam, 3 g, intravenous, Q6H KIMBERLEY ARIPiprazole, 10 mg, oral, Daily kpoorvwaepy-kafqkmejkleql-dymppqvgo, 1 tablet, oral, Daily doxepin, 25 mg, oral, Nightly DULoxetine DR, 60 mg, oral, Daily [Held by Provider] enoxaparin, 40 mg, subcutaneous, Daily-2100 sodium chloride 0.9%, 0.5-20 mL, intra-catheter, Q8H KIMBERLEY PRN Medications: acetaminophen, 650 mg, 650 mg at 04/07/242012 OR HYDROcodone-acetaminophen, 1 tablet sodium chloride 0.9%, 30 mL hydrOXYzine, 50 mg, 50 mg at 04/07/242012 ondansetron ODT, 4 mg OR ondansetron, 4 mg ramelteon, 8 mg, 8 mg at 04/07/242012 sodium chloride 0.9%, 0.5-20 mL OBJECTIVE ROS Review of systems per HPI and otherwise all other systems are negative VITALS / I&Os 24hr Min/Max: Temp Min: 36.4 ??C (97.5 ??F) Max: 36.6 ??C (97.9 ??F) Pulse Min: 48 Max: 66 BP Min: 107/52 Max: 128/69 Resp Min: 18 Max: 19 SpO2 Min: 95 % Max: 98 % Most Recent: Vitals: 04/08/24 0420 BP: 117/65 Pulse: (!) 48 Resp: 19 Temp: 36.4 ??C (97.5 ??F) SpO2: 97% Intake/Output Summary (Last 24 hours) at 04/08/2024 0706 Last data filed at 04/07/20242012 Gross per 24 hour Intake 738 ml Output -- Net 738 ml PHYSICAL EXAM Constitutional: Well-developed, resting comfortably in bed HEENT: Moist MM, no bleeding noted at surgical site, small gauze over site, mild swelling of right jaw Neck: Supple, no lymphadenopathy Cardiovascular: tachycardic, regular rhythm, S1/S2 normal. Pulmonary/Chest: Normal respiratory effort and breath sounds. No wheezes or rales. Abdominal: Soft, non-tender, non-distended. Normoactive bowel sounds. Musculoskeletal: No lower extremity edema. Neurological: alert and oriented x3, moves all extremities spontaneously Skin: Skin is warm and dry. Psychiatric: normal mood and affect LABS CBC Recent Labs Lab Units 04/08/24 0028 WBC K/cumm 2.6* HEMOGLOBIN g/dL 13.1 HEMATOCRIT % 41.4 PLATELETS K/cumm 254 NEUTROS PCT % 28.8 LYMPHS PCT % 56.3 MONOS PCT % 5.9 EOS PCT % 7.8 Chem Recent Labs Lab Units 04/08/24 0028 SODIUM mmol/L 139 POTASSIUM PLASMA mmol/L 4.3 CHLORIDE mmol/L 104 CO2 mmol/L 29 ANIONGAP mmol/L 6 BUN SERUM mg/dL 13 CREATININE mg/dL 0.91 GLUCOSE mg/dL 93 CALCIUM mg/dL 8.7 LFTs Recent Labs Lab Units 04/04/24 0939 ALK PHOS Units/L 87 BILIRUBIN TOTAL mg/dL 0.8 TOTAL PROTEIN g/dL 9.3* ALT Units/L 29 AST Units/L 47 Coags Recent Labs Lab Units 04/08/24 0028 APTT sec 31 INR 1.05 Cardiac Enzymes No results found for: TROPONINI Urine Analysis Recent Labs Lab Units 04/05/24 1153 COLOR U Yellow CLARITY U Clear SPEC GRAV U >1.042* PH, URINE 6.5 PROTEIN UR QL 1+* GLUCOSE URQL Negative KETONES UR Trace BLOOD UR Negative NITRITE UR Negative LEUKOCYTE ESTERASE UR Negative ABG Micro: CD4 and viral load pending UA pending OTHER STUDIES CT Facial Bones W Contrast Result Date: 04/04/2024 Right 1st premolar dental abscess with marked overlying facial cellulitis but no apparent signs of underlying osteomyelitis. Electronically signed by: Domenic Crawford MD ASSESSMENT & PLAN Phil Chase is a 28 y.o. male with hx of HIV (CD4 230 03/18/2024, Viral load undetectable 02/26/2024),stimulant use disorder (methamphetamine) and borderline personality disorder who presented to the ED on 04/04/2024 for suicidal ideation and facial swelling. On CT patient found to have dental abs cess for which ENT was consulted and I&D was performed. Patient admitted to the hospital for treatment with IV abx. #Mandibular Abscess s/p I&D Patient with right facial swelling and pain, with CT confirming mandibular abscess with overlying cellulitis, no evidence of osteomyelitis. Started on amp/sulbactam in the ED. Seen by ENT in the ED, now s/p I&D of abscess. Patient underwent dental extraction with OMFS on 04/08/2024. Patient tolerated procedure well. Abx course: (amp/sulbactam 04/04-) -continue amp/sulbactam, plan to complete 10 day total course with transition to augmentin at discharge -OMFS discharge instructions to floor noted - patient on mechanical soft diet, no straws, no hot liquids for 24 hours, advised on smoking and alcohol avoidance in the outpatient setting #Suicidal Ideation #borderline personality disorder Patient with history of multiple psychiatric hospitalizations, including for suicidal ideation/attempts. When seen patient continues to endorse active SI. Patient seen by psychiatry during admission stating that patient has had multiple ED presentation with chronic SI with plan/intent and that he does not meet criteria for inpatient psychiatric admission at this time. As per psychiatry, ok to discontinue 1:1 sitter and suicide precautions. -home abilify, doxepin, and duloxetine continued -home hydroxyzine continued #HIV Patient diagnosed in 2018. Stable on biktarvy at home, however reports he has not taken in 5 days. Last CD4 03/18/2024 was 230 (17%) and viral load 02/26/2024 not detected. Repeat CD4 absolute 138 (14%), viral load > 4000. ID consulted, with recommendation for genotype testing and outpatient followup. Most likely detectable viral load is related to non adherence to medication. -continue home biktarvy with plan for patient to follow up with outpatient ID to further evaluate need for medication change -ID recommending bactrim ppx given low cd4 and hx of non adherence #Hx of syphilis, RPR 1:64 Patient with history of positive RPR and inpatient treatment with penicillin. RPR during this admission 1:64, last RPR titer 02/26/2024 also 1:64. RPR titers have not reduced as expected given treatment, however prior ID documentation stating that this may occur in patient with HIV. ID aware and stating that given the titer has not increased, there is nothing to be done at this time. -outpatient follow up with ID #Stimulant use disorder, amphetamine type Patient reporting recent return to use. Denies other drug use, however documentation of prior fentanyl use noted. Patient with psychomotor agitation on exam which may be consistent with methamphetamine withdrawal. Patient amenable to discharge to rehabilitation facility for his substance use. -UDS presumptive positive for amphetamine, cocaine, and fentanyl, confirmation not ordered -CTM withdrawal symptoms -referral placed to [facility], pending response - Diet: Adult Diet Restricted; Mechanical Soft - DVT PPX: lovenox 40mg daily - Access:right PIV - PT/OT:pending referral to [facility] for discharge - CODE STATUS: Full Code EMERGENCY CONTACT Contact: Extended Emergency Contact Information Primary Emergency Contact: Sarah Simpson Mobile Relation: Mother Brandy Beyer MD Internal Medicine PGY-1 Cosigned by Jimmy Rodgers MD at 04/08/2024 8:35 PM CDT Associated attestation - Jimmy Rodgers MD - 04/08/2024 8:35 PM CDT Attending Documentation I have seen and examined the patient on 04/08/24. I agree with the findings and plan of care as documented in the resident's/fellow's note. and as discussed with the resident/fellow. 28 yo hx of HIV with undetectable virus 03/15, stimulant use disorder here with SI and dental abscess/ # Dental Abscess A: s/p drainage by ENT and clinically improving. Swelling and pain improved. OMFS pulled two teeth today with some reconstruction P: - - continue IV unasyn. And will discharge on augmentin Plan for discharge to a rehab facility for substance abuse disorder tomorrow # HIV A: CD4 dropped to 138 with now detectable viral load. Appreciate ID consult P: - will start bactrim prophylaxis and continue biktarvy for now. Patient admits to non adherence with mediations. Will discuss with patient need to make appointment with his hiv doctor at [facility]. Supplementary Attestation Today, I am treating the patient for HIV, dental abscess which is in severe exacerbation, progression, or experiencing treatment side effects as evidenced by need for emergent drainage of abscess, tooth extraction and low CD4 count, as described in the note. Jimmy Rodgers MD * Pepito, Brandy Rudolph MD - 04/07/2024 10:22 AM CDT MEDICINE DAILY PROGRESS NOTE Date of Admission: 04/04/2024 Date of Service: 04/07/24 CARE TEAM Patient: Phil Chase Room: [id number] Admitting physician: Con Lewis MD Service: Medical Primary Care Physician: Mady Sullivan MD SUBJECTIVE CHIEF COMPLAINT Chief Complaint Patient presents with Suicidal Ideation BRIEF HPI Phil Chase is a 28 y.o. male with a hx of HIV (CD4 230 03/18/2024, Viral load undetectable 02/26/2024),stimulant use disorder (methamphetamine) and borderline personality disorder who presented to the ED on 04/04/2024 for suicidal ideation and facial swelling. On CT patient found to have dental a bscess for which ENT was consulted and I&D was performed. Patient admitted to medicine for treatment with IV abx. 24-HOUR INTERVAL HISTORY -JASMIN AHRT -patient seen at bedside in AM , reports oral pain continues to respond to pain medication, otherwise no other complaints voiced -when asked, patient states he would like to be discharged to a rehabilitation facility for his substance use Brief Plan: -social work investigating options for outpatient rehabilitation facilities -continue amp/sulbactam, will complete 10 day total course of abx -OMFS to see patient 04/08/2024, NPO at midnight SUBJECTIVE Negative except for noted above ALLERGIES No Known Allergies CURRENT MEDICATIONS Scheduled Medications: ampicillin-sulbactam, 3 g, intravenous, Q6H KIMBERLEY ARIPiprazole, 10 mg, oral, Daily mfgyujnnely-afzevtjlllury-cciucathq, 1 tablet, oral, Daily doxepin, 25 mg, oral, Nightly DULoxetine DR, 60 mg, oral, Daily enoxaparin, 40 mg, subcutaneous, Daily-2100 sodium chloride 0.9%, 0.5-20 mL, intra-catheter, Q8H KIMBERLEY PRN Medications: acetaminophen, 650 mg OR HYDROcodone-acetaminophen, 1 tablet sodium chloride 0.9%, 30 mL hydrOXYzine, 50 mg, 50 mg at 04/06/242100 ondansetron ODT, 4 mg OR ondansetron, 4 mg ramelteon, 8 mg, 8 mg at 04/06/24 210 sodium chloride 0.9%, 0.5-20 mL OBJECTIVE ROS Review of systems per HPI and otherwise all other systems are negative VITALS / I&Os 24hr Min/Max: Temp Min: 36.5 ??C (97.7 ??F) Max: 36.5 ??C (97.7 ??F) Pulse Min: 52 Max: 55 BP Min: 132/79 Max: 139/65 Resp Min: 18 Max: 18 SpO2 Min: 96 % Max: 97 % Most Recent: Vitals: 04/07/24 0800 BP: Pulse: Resp: 18 Temp: SpO2: Intake/Output Summary (Last 24 hours) at 04/07/2024 1022 Last data filed at 04/07/2024 0830 Gross per 24 hour Intake 250 ml Output -- Net 250 ml PHYSICAL EXAM Constitutional: Well-developed, resting comfortably in bed HEENT: Moist MM, poor dentition with broken tooth to gumline on the right. Visible swelling of right mandible with mild tenderness to palpation Neck: Supple, no lymphadenopathy Cardiovascular: tachycardic, regular rhythm, S1/S2 normal. Pulmonary/Chest: Normal respiratory effort and breath sounds. No wheezes or rales. Abdominal: Soft, non-tender, non-distended. Normoactive bowel sounds. Musculoskeletal: No lower extremity edema. Neurological: alert and oriented x3, moves all extremities spontaneously Skin: Skin is warm and dry. Psychiatric: normal mood and affect LABS CBC Recent Labs Lab Units 04/06/24 2243 WBC K/cumm 2.7* HEMOGLOBIN g/dL 12.9* HEMATOCRIT % 41.4 PLATELETS K/cumm 247 NEUTROS PCT % 31.4 LYMPHS PCT % 52.6 MONOS PCT % 6.7 EOS PCT % 8.2 Chem Recent Labs Lab Units 04/06/24 2243 SODIUM mmol/L 136 POTASSIUM PLASMA mmol/L 4.5 CHLORIDE mmol/L 105 CO2 mmol/L 28 ANIONGAP mmol/L 3 BUN SERUM mg/dL 15 CREATININE mg/dL 0.94 GLUCOSE mg/dL 128 CALCIUM mg/dL 8.9 LFTs Recent Labs Lab Units 04/04/24 0939 ALK PHOS Units/L 87 BILIRUBIN TOTAL mg/dL 0.8 TOTAL PROTEIN g/dL 9.3* ALT Units/L 29 AST Units/L 47 Coags Cardiac Enzymes No results found for: TROPONINI Urine Analysis Recent Labs Lab Units 04/05/24 1153 COLOR U Yellow CLARITY U Clear SPEC GRAV U >1.042* PH, URINE 6.5 PROTEIN UR QL 1+* GLUCOSE URQL Negative KETONES UR Trace BLOOD UR Negative NITRITE UR Negative LEUKOCYTE ESTERASE UR Negative ABG Micro: CD4 and viral load pending UA pending OTHER STUDIES CT Facial Bones W Contrast Result Date: 04/04/2024 Right 1st premolar dental abscess with marked overlying facial cellulitis but no apparent signs of underlying osteomyelitis. Electronically signed by: Domenic Crawford MD ASSESSMENT & PLAN Phil Chase is a 28 y.o. male with hx of HIV (CD4 230 03/18/2024, Viral load undetectable 02/26/2024),stimulant use disorder (methamphetamine) and borderline personality disorder who presented to the ED on 04/04/2024 for suicidal ideation and facial swelling. On CT patient found to have dental abs cess for which ENT was consulted and I&D was performed. Patient admitted to the hospital for treatment with IV abx. #Mandibular Abscess s/p I&D Patient with right facial swelling and pain, with CT confirming mandibular abscess with overlying cellulitis, no evidence of osteomyelitis. Started on amp/sulbactam in the ED. Seen by ENT in the ED, now s/p I&D of abscess. Abx course: (amp/sulbactam 04/04-) -continue amp/sulbactam, plan to complete 10 day total course -OMFS to see patient 04/08/2024, made NPO at midnight #Suicidal Ideation #borderline personality disorder Patient with history of multiple psychiatric hospitalizations, including for suicidal ideation/attempts. When seen patient continues to endorse active SI. Patient seen by psychiatry during admission stating that patient has had multiple ED presentation with chronic SI with plan/intent and that he does not meet criteria for inpatient psychiatric admission at this time. As per psychiatry, ok to discontinue 1:1 sitter and suicide precautions. -home abilify, doxepin, and duloxetine continued -home hydroxyzine continued #HIV Patient diagnosed in 2018. Stable on biktarvy at home, however reports he has not taken in 5 days. Last CD4 03/18/2024 was 230 (17%) and viral load 02/26/2024 not detected. -repeat CD4 and viral load ordered -continue home biktarvy #Stimulant use disorder, amphetamine type Patient reporting recent return to use. Denies other drug use, however documentation of prior fentanyl use noted. Patient with psychomotor agitation on exam which may be consistent with methamphetamine withdrawal. Patient amenable to discharge to rehabilitation facility for his substance use. -UDS presumptive positive for amphetamine, cocaine, and fentanyl, confirmation not ordered -CTM withdrawal symptoms -social work investigating options for discharge to rehabilitation facility - Diet: Adult Diet Restricted; Mechanical Soft - DVT PPX: lovenox 40mg daily - Access:right PIV - PT/OT:pending further evaluation by OMFS - CODE STATUS: Full Code EMERGENCY CONTACT Contact: Extended Emergency Contact Information Primary Emergency Contact: Sarah Simpson Mobile Relation: Mother Secondary Emergency Contact: Shabbir De La Rosa Relation: Tester Armature Or Fields Brandy Beyer MD Internal Medicine PGY-1 Cosigned by Jimmy Rodgers MD at 04/07/2024 3:31 PM CDT Associated attestation - Jimmy Rodgers MD - 04/07/2024 3:31 PM CDT Attending Documentation I have seen and examined the patient on 04/07/24. I agree with the findings and plan of care as documented in the resident's/fellow's note. and as discussed with the resident/fellow. 28 yo hx of HIV with undetectable virus 03/15, stimulant use disorder here with SI and dental abscess/ # Dental Abscess A: s/p drainage by ENT and clinically improving. Swelling and pain improved. P: - OMFS to pull tooth tomorrow - continue IV unasyn. Once tooth pulled can likely switch to oral and discharge - will d/w sw and cm placement. Plan for discharge to a rehab facility for substance abuse disorder Jimmy Rodgers MD * Martha Koch, [facility] - 04/07/2024 10:08 AM CDT Pharmacist Home Medication Review The clinical physician specialist has completed a medication review with the patient/caregiver and has made the following edits to the home medication list: Medication additions None Medication deletions Duplicate Biktarvy Medication alterations None Home medications - following pharmacist reconciliation Medication List TAKE these medications Pharmacy Comments ARIPiprazole 5 mg tablet Commonly known as: ABILIFY Take 1 tablet (5 mg total) by mouth daily Notes to patient: For mood disorder/ depression, anxiety Side effects: headache, tiredness, weight gain cloNIDine 0.1 mg tablet Commonly known as: CATAPRES Take 1 tablet (0.1 mg total) by mouth 2 (two) times a day as needed for high blood pressure Notes to patient: For high blood pressure Side effects: abnormal heartbeat, dry mouth, headache doxepin 25 mg capsule Commonly known as: SINEquan Take 1 capsule (25 mg total) by mouth nightly Notes to patient: For mood disorder, depression Side effects: drowsiness, constipation, dry mouth, headache DULoxetine DR 60 mg capsule Commonly known as: CYMBALTA Take 1 capsule (60 mg total) by mouth daily Notes to patient: Mood disorder/Antianxiety, antidepressant Side effects: sweating, weight loss, abdominal pain, constipation, nausea, dry mouth hydrOXYzine 50 mg tablet Commonly known as: ATARAX Take 1 tablet (50 mg total) by mouth every 6 (six) hours as needed Notes to patient: Mood disorder/anxiety Side effects: cough, dizziness, low heart rate ASK your doctor about these medications Pharmacy Comments qrolqqneydk-irpsujxytfyrp-mbakvvadc 50-200-25 mg tablet Commonly known as: BIKTARVY Take 1 tablet by mouth daily Ask about: Which instructions should I use? Allergies - following pharmacist reconciliation Patient has no known allergies. Joanne Koch, ChristinaD, [facility] Clinical Human Resources Hr Representative - Transitions of Care * Brandy Beyer MD - 04/06/2024 7:14 AM CDT MEDICINE DAILY PROGRESS NOTE Date of Admission: 04/04/2024 Date of Service: 04/06/24 CARE TEAM Patient: Phil Chase Room: [id number] Admitting physician: Con Lewis MD Service: Medical Primary Care Physician: Mady Sullivan MD SUBJECTIVE CHIEF COMPLAINT Chief Complaint Patient presents with Suicidal Ideation BRIEF HPI Phil Chase is a 28 y.o. male with a hx of HIV (CD4 230 03/18/2024, Viral load undetectable 02/26/2024),stimulant use disorder (methamphetamine) and borderline personality disorder who presented to the ED on 04/04/2024 for suicidal ideation and facial swelling. On CT patient found to have dental a bscess for which ENT was consulted and I&D was performed. Patient admitted to medicine for treatment with IV abx. 24-HOUR INTERVAL HISTORY -JASMIN HART -patient seen at bedside in AM , sleeping comfortably, reports oral pain, however responds well to pain regimen, otherwise no complaints Brief Plan: -patient seen by psychiatry, recommending continuing home medications, d/c suicide precautions and 1:1 sitter -engage social work for community mental health, housing resource or rehab placement -continue amp/sulbactam, will complete 10 day total course of abx -consult to OM Sunday for dental extraction SUBJECTIVE Negative except for noted above ALLERGIES No Known Allergies CURRENT MEDICATIONS Scheduled Medications: ampicillin-sulbactam, 3 g, intravenous, Q6H KIMBERLEY ARIPiprazole, 10 mg, oral, Daily nrankfljvqf-vlitfklajpuwz-stvjktetm, 1 tablet, oral, Daily doxepin, 25 mg, oral, Nightly DULoxetine DR, 60 mg, oral, Daily enoxaparin, 40 mg, subcutaneous, Daily-2100 sodium chloride 0.9%, 0.5-20 mL, intra-catheter, Q8H KIMBERLEY PRN Medications: acetaminophen, 650 mg OR HYDROcodone-acetaminophen, 1 tablet sodium chloride 0.9%, 30 mL hydrOXYzine, 50 mg, 50 mg at 04/05/242033 ondansetron ODT, 4 mg OR ondansetron, 4 mg ramelteon, 8 mg, 8 mg at 04/05/242033 sodium chloride 0.9%, 0.5-20 mL OBJECTIVE ROS Review of systems per HPI and otherwise all other systems are negative VITALS / I&Os 24hr Min/Max: Temp Min: 36.5 ??C (97.7 ??F) Max: 36.5 ??C (97.7 ??F) Pulse Min: 59 Max: 64 BP Min: 118/62 Max: 119/69 Resp Min: 18 Max: 18 SpO2 Min: 97 % Max: 98 % Most Recent: Vitals: 04/06/24 0405 BP: 119/69 Pulse: 64 Resp: 18 Temp: 36.5 ??C (97.7 ??F) SpO2: 97% Intake/Output Summary (Last 24 hours) at 04/06/202414 Last data filed at 04/05/20242034 Gross per 24 hour Intake -- Output 600 ml Net -600 ml PHYSICAL EXAM Constitutional: Well-developed, sleeping comfortably in bed HEENT: Moist MM, poor dentition with broken tooth to gumline on the right. Visible swelling of right mandible with mild tenderness to palpation Neck: Supple, no lymphadenopathy Cardiovascular: tachycardic, regular rhythm, S1/S2 normal. Pulmonary/Chest: Normal respiratory effort and breath sounds. No wheezes or rales. Abdominal: Soft, non-tender, non-distended. Normoactive bowel sounds. Musculoskeletal: No lower extremity edema. Neurological: alert and oriented x3, moves all extremities spontaneously Skin: Skin is warm and dry. Psychiatric: normal mood and affect LABS CBC Recent Labs Lab Units 04/05/24 2215 WBC K/cumm 2.4* HEMOGLOBIN g/dL 12.4* HEMATOCRIT % 40.4 PLATELETS K/cumm 230 NEUTROS PCT % 43.2 LYMPHS PCT % 43.1 MONOS PCT % 10.3 EOS PCT % 1.7 Chem Recent Labs Lab Units 04/05/24 2215 SODIUM mmol/L 137 POTASSIUM PLASMA mmol/L 4.6 CHLORIDE mmol/L 105 CO2 mmol/L 27 ANIONGAP mmol/L 5 BUN SERUM mg/dL 16 CREATININE mg/dL 1.03 GLUCOSE mg/dL 89 CALCIUM mg/dL 8.9 LFTs Recent Labs Lab Units 04/04/24 0939 ALK PHOS Units/L 87 BILIRUBIN TOTAL mg/dL 0.8 TOTAL PROTEIN g/dL 9.3* ALT Units/L 29 AST Units/L 47 Coags Cardiac Enzymes No results found for: TROPONINI Urine Analysis Recent Labs Lab Units 04/05/24 1153 COLOR U Yellow CLARITY U Clear SPEC GRAV U >1.042* PH, URINE 6.5 PROTEIN UR QL 1+* GLUCOSE URQL Negative KETONES UR Trace BLOOD UR Negative NITRITE UR Negative LEUKOCYTE ESTERASE UR Negative ABG Micro: CD4 and viral load pending UA pending OTHER STUDIES CT Facial Bones W Contrast Result Date: 04/04/2024 Right 1st premolar dental abscess with marked overlying facial cellulitis but no apparent signs of underlying osteomyelitis. Electronically signed by: Domenic Crawford MD ASSESSMENT & PLAN Phil Chase is a 28 y.o. male with hx of HIV (CD4 230 03/18/2024, Viral load undetectable 02/26/2024),stimulant use disorder (methamphetamine) and borderline personality disorder who presented to the ED on 04/04/2024 for suicidal ideation and facial swelling. On CT patient found to have dental abs cess for which ENT was consulted and I&D was performed. Patient admitted to the hospital for treatment with IV abx. #Mandibular Abscess s/p I&D Patient with right facial swelling and pain, with CT confirming mandibular abscess with overlying cellulitis, no evidence of osteomyelitis. Started on amp/sulbactam in the ED. Seen by ENT in the ED, now s/p I&D of abscess. Abx course: (amp/sulbactam 04/04-) -continue amp/sulbactam, plan to complete 10 day total course -plan for OMFS consult on Sunday for dental extraction #Suicidal Ideation #borderline personality disorder Patient with history of multiple psychiatric hospitalizations, including for suicidal ideation/attempts. When seen patient continues to endorse active SI. Patient seen by psychiatry during admission stating that patient has had multiple ED presentation with chronic SI with plan/intent and that he does not meet criteria for inpatient psychiatric admission at this time. As per psychiatry, ok to discontinue 1:1 sitter and suicide precautions. -home abilify, doxepin, and duloxetine continued -home hydroxyzine continued #HIV Patient diagnosed in 2018. Stable on biktarvy at home, however reports he has not taken in 5 days. Last CD4 03/18/2024 was 230 (17%) and viral load 02/26/2024 not detected. -repeat CD4 and viral load ordered -continue home biktarvy #Stimulant use disorder, amphetamine type Patient reporting recent return to use. Denies other drug use, however documentation of prior fentanyl use noted. Patient with psychomotor agitation on exam which may be consistent with methamphetamine withdrawal. -UDS presumptive positive for amphetamine, cocaine, and fentanyl, confirmation not ordered -CTM withdrawal symptoms - Diet: Adult Diet Restricted; Mechanical Soft - DVT PPX: lovenox 40mg daily - Access:right PIV - PT/OT:pending further evaluation - CODE STATUS: Full Code EMERGENCY CONTACT Contact: Extended Emergency Contact Information Primary Emergency Contact: Sarah Simpson Mobile Relation: Mother Secondary Emergency Contact: Shabbir De La Rosa Relation: Tester Armature [employer] Fields Brandy Beyer MD Internal Medicine PGY-1 Cosigned by Con Lewis MD at 04/06/2024 5:18 PM CDT Associated attestation - Con Lewis MD - 04/06/2024 5:18 PM CDT HOSPITAL ATTENDING DOCUMENTATION I have seen and examined the patient on 04/06/24. I agree with the findings and plan of care as documented in the resident's/fellow's note. Patient states he's having some right tooth pain. Encouraged him to ask for vicodin for pain. Knowswe will consult ENT to evaluate for evaluation for dental extraction given tooth abscess. Otherwisepsychiatry has rec cont charles meds and does not need suicide precautions. Will have SW see patient for rehab and housing options as appropriate. Noted specific gravity high on UA, encourage po intake. Medications: Scheduled: ampicillin-sulbactam, 3 g, intravenous, Q6H KIMBERLEY ARIPiprazole, 10 mg, oral, Daily nxijsvxekko-uwgngnvvxrlbh-uonyanzps, 1 tablet, oral, Daily doxepin, 25 mg, oral, Nightly DULoxetine DR, 60 mg, oral, Daily enoxaparin, 40 mg, subcutaneous, Daily-2100 sodium chloride 0.9%, 0.5-20 mL, intra-catheter, Q8H KIMBERLEY Infusions: PRN: acetaminophen OR HYDROcodone-acetaminophen sodium chloride 0.9% hydrOXYzine ondansetron ODT OR ondansetron ramelteon sodium chloride 0.9% DVT Prophylaxis: LMWH Code Status: Full Code PT/OT Dispo Rec : / Supplementary Attestation Our team: My total encounter time on this service date was 50 minutes which was spent performing a lvus-ny-xwvv encounter and personally completing the provider-level activities documented in the note. This includes time spent prior to the visit and after the visit in direct care of the patient. This time does not include time spent in any separately reportable services. Con Lewis MD [facility] Medicine * Brandy Beyer MD - 04/05/2024 9:11 AM CDT MEDICINE DAILY PROGRESS NOTE Date of Admission: 04/04/2024 Date of Service: 04/05/24 CARE TEAM Patient: Phil Chase Room: [id number] Admitting physician: Con Lewis MD Service: Medical Primary Care Physician: Mady Sullivan MD SUBJECTIVE CHIEF COMPLAINT Chief Complaint Patient presents with Suicidal Ideation BRIEF HPI Phil Chase is a 28 y.o. male with a hx of HIV (CD4 230 03/18/2024, Viral load undetectable 02/26/2024),stimulant use disorder (methamphetamine) and borderline personality disorder who presented to the ED on 04/04/2024 for suicidal ideation and facial swelling. On CT patient found to have dental a bscess for which ENT was consulted and I&D was performed. Patient admitted to medicine for treatment with IV abx. 24-HOUR INTERVAL HISTORY -patient seen at bedside in AM with 1:1 sitter in room, sleeping comfortably, reports oral pain is much improved -when asked, patient reports continued SI Brief Plan: -consult to psychiatry placed for management of SI while inpatient -continue amp/sulbactam -consult to OMFS Sunday for further evaluation of mandibular abscess SUBJECTIVE Negative except for noted above ALLERGIES No Known Allergies CURRENT MEDICATIONS Scheduled Medications: ampicillin-sulbactam, 3 g, intravenous, Q6H KIMBERLEY ARIPiprazole, 10 mg, oral, Daily zqojnctzsby-sicilxeibgplv-frcdjcrep, 1 tablet, oral, Daily doxepin, 25 mg, oral, Nightly DULoxetine DR, 60 mg, oral, Daily enoxaparin, 40 mg, subcutaneous, Daily-2100 sodium chloride 0.9%, 0.5-20 mL, intra-catheter, Q8H KIMBERLEY PRN Medications: acetaminophen, 650 mg OR HYDROcodone-acetaminophen, 1 tablet sodium chloride 0.9%, 30 mL hydrOXYzine, 50 mg ondansetron ODT, 4 mg OR ondansetron, 4 mg ramelteon, 8 mg sodium chloride 0.9%, 0.5-20 mL OBJECTIVE ROS Review of systems per HPI and otherwise all other systems are negative VITALS / I&Os 24hr Min/Max: Temp Min: 36.7 ??C (98.1 ??F) Max: 38.6 ??C (101.5 ??F) Pulse Min: 28 Max: 110 BP Min: 120/68 Max: 154/78 Resp Min: 16 Max: 18 SpO2 Min: 75 % Max: 100 % Most Recent: Vitals: 04/05/24 0415 BP: 123/70 Pulse: 68 Resp: 18 Temp: 36.7 ??C (98.1 ??F) SpO2: 98% Intake/Output Summary (Last 24 hours) at 04/05/2024 0912 Last data filed at 04/05/2024 0524 Gross per 24 hour Intake 1120 ml Output -- Net 1120 ml PHYSICAL EXAM Constitutional: Well-developed, sleeping comfortably in bed HEENT: Moist MM, poor dentition with broken tooth to gumline on the right. Visible swelling of right mandible with mild tenderness to palpation Neck: Supple, no lymphadenopathy Cardiovascular: tachycardic, regular rhythm, S1/S2 normal. Pulmonary/Chest: Normal respiratory effort and breath sounds. No wheezes or rales. Abdominal: Soft, non-tender, non-distended. Normoactive bowel sounds. Musculoskeletal: No lower extremity edema. Neurological: psychomotor agitation present when awake; alert and oriented x3 Skin: Skin is warm and dry. Psychiatric: expresses active suicidal ideation, no homicidal ideation LABS CBC Recent Labs Lab Units 04/04/24 0939 WBC K/cumm 5.2 HEMOGLOBIN g/dL 14.3 HEMATOCRIT % 44.5 PLATELETS K/cumm 257 NEUTROS PCT % 63.4 LYMPHS PCT % 25.1 MONOS PCT % 10.3 EOS PCT % 0.4 Chem Recent Labs Lab Units 04/04/24 0939 SODIUM mmol/L 141 POTASSIUM PLASMA mmol/L 4.5 CHLORIDE mmol/L 104 CO2 mmol/L 27 ANIONGAP mmol/L 10 BUN SERUM mg/dL 15 CREATININE mg/dL 0.98 GLUCOSE mg/dL 84 CALCIUM mg/dL 9.4 LFTs Recent Labs Lab Units 04/04/24 0939 ALK PHOS Units/L 87 BILIRUBIN TOTAL mg/dL 0.8 TOTAL PROTEIN g/dL 9.3* ALT Units/L 29 AST Units/L 47 Coags Cardiac Enzymes No results found for: TROPONINI Urine Analysis ABG Micro: CD4 and viral load pending UA pending OTHER STUDIES CT Facial Bones W Contrast Result Date: 04/04/2024 Right 1st premolar dental abscess with marked overlying facial cellulitis but no apparent signs of underlying osteomyelitis. Electronically signed by: Domenic Crawford MD ASSESSMENT & PLAN Phil Chase is a 28 y.o. male with hx of HIV (CD4 230 03/18/2024, Viral load undetectable 02/26/2024),stimulant use disorder (methamphetamine) and borderline personality disorder who presented to the ED on 04/04/2024 for suicidal ideation and facial swelling. On CT patient found to have dental abs cess for which ENT was consulted and I&D was performed. Patient admitted to the hospital for treatment with IV abx. #Mandibular Abscess s/p I&D Patient with right facial swelling and pain, with CT confirming mandibular abscess with overlying cellulitis, no evidence of osteomyelitis. Started on amp/sulbactam in the ED. Seen by ENT in the ED, now s/p I&D of abscess. Abx course: (amp/sulbactam 04/04-) -continue amp/sulbactam -ENT following, appreciate recs -plan for OMFS consult on Sunday #Suicidal Ideation #Unspecified mood disorder #borderline personality disorder Patient with history of multiple psychiatric hospitalizations, including for suicidal ideation/attempts. When seen patient continues to endorse active SI. -home abilify, doxepin, and duloxetine continued -psych consult placed, appreciate recs -home hydroxyzine continued -suicide precautions placed, 1:1 sitter #HIV Patient diagnosed in 2018. Stable on biktarvy at home, however reports he has not taken in 5 days. Last CD4 03/18/2024 was 230 (17%) and viral load 02/26/2024 not detected. -repeat CD4 and viral load ordered -continue home biktarvy #Stimulant use disorder, amphetamine type Patient reporting recent return to use. Denies other drug use, however documentation of prior fentanyl use noted. Patient with psychomotor agitation on exam which may be consistent with methamphetamine withdrawal. -UDS pending -CTM withdrawal symptoms - Diet: Adult Diet Restricted; Mechanical Soft - DVT PPX: lovenox 40mg daily - Access:right PIV - PT/OT:pending further evaluation - CODE STATUS: Full Code EMERGENCY CONTACT Contact: Extended Emergency Contact Information Primary Emergency Contact: Sarah Simpson Mobile Relation: Mother Secondary Emergency Contact: Shabbir De La Rosa Relation: Tester Armature Or Fields Brandy Beyer MD Internal Medicine PGY-1 Cosigned by Con Lewis MD at 04/05/2024 5:45 PM CDT Associated attestation - Con Lewis MD - 04/05/2024 5:45 PM CDT HOSPITAL ATTENDING DOCUMENTATION I have seen and examined the patient on 04/05/24. I agree with the findings and plan of care as documented in the resident's/fellow's note. Mouth feels better. Discussed psychiatry, do not feel that he is suicidal and recommend d/c 1:1 sitter. Await OMFS consult on Sunday. Medications: Scheduled: ampicillin-sulbactam, 3 g, intravenous, Q6H KIMBERLEY ARIPiprazole, 10 mg, oral, Daily quhipzqanct-fnrjowlkdmuyb-ycntgynvf, 1 tablet, oral, Daily doxepin, 25 mg, oral, Nightly DULoxetine DR, 60 mg, oral, Daily enoxaparin, 40 mg, subcutaneous, Daily-2100 sodium chloride 0.9%, 0.5-20 mL, intra-catheter, Q8H KIMBERLEY Infusions: PRN: acetaminophen OR HYDROcodone-acetaminophen sodium chloride 0.9% hydrOXYzine ondansetron ODT OR ondansetron ramelteon sodium chloride 0.9% DVT Prophylaxis: LMWH Code Status: Full Code PT/OT Dispo Rec : / Supplementary Attestation Our team: My total encounter time on this service date was 45 minutes which was spent performing a uxtb-lo-rjgo encounter and personally completing the provider-level activities documented in the note. This includes time spent prior to the visit and after the visit in direct care of the patient. This time does not include time spent in any separately reportable services. Con Lewis MD Hospital Medicine documented in this encounter H&P Notes * Brandy Beyer MD - 04/04/2024 4:03 PM CDT INTERNAL MEDICINE ADMISSION HISTORY AND PHYSICAL Date: 04/04/24 CARE TEAM Patient: Phil Chase Primary Care Physician: Mady Sullivan MD Room: [id number] Attending Physician: Con Lewis MD SUBJECTIVE CHIEF COMPLAINT: Chief Complaint Patient presents with Suicidal Ideation HISTORY OF PRESENT ILLNESS: Phil Chase is a 28 y.o. male with a hx of HIV (CD4 230 03/18/2024, Viral load undetectable 02/26/2024),stimulant use disorder (amphetamine type) and borderline personality disorder who presented to the ED on 04/04/2024 for suicidal ideation and facial swelling. As per documentation, patient was BIBEMS after patient was being detained by police for trespassingand expressed he was planning to by suicide with a firearm. Patient reported returning to use of methamphetamine 4 days prior to presentation. Patient noted to be hyperactive in the ED. In the ED, - Vitals: T 37.1 ??C (98.7 ??F) BP 124/98 HR 110 RR 18 SpO2 100 %. - Labs: Elytes unremarkable, CBC unremarkable. UDS ordered. - Imaging: CT of the maxillofacial bones showing multiple prominent dental caries involving the right mandibular teeth. In particular, there are large caries involving the right mandibular 1st premolar and 1st molar with associated dental abscess involving the right 1st premolar which measures approximately 2.1 x 0.6 x 1.5 cm. There is no apparent erosion of the adjacent alveolar ridge. Marked overlying right facial cellulitis is noted.. - EKG: NA. Patient was started on ampicillin-sulbactam and received olanzapine for agitation. ENT consulted and oral abscess was drained in the ED. Patient was admitted to the medicine for further work-up, monitoring, and IV abx treatment. Patient seen at bedside in the ED and reports he first started feeling oral pain on the right side of his mouth about 2 days prior to presentation and started to notice swelling as well. Denies associated fevers, chills, n/v. States some improvement in pain since I&D with ENT, however still mild pain. States that prior to presentation he was planning to end his life via firearm, however was found by police. Confirms prior suicide attempts and states he has felt SI for about 2 months. Patient states he started smoking methamphetamine about 3 days prior to presentation, and had previously been without use for 100 days. Fatemeh other drug use including fentanyl and cocaine. States he has been unhoused for about 2 weeks. Was previously in sober living, however did not feel that it was the best place for him. Regarding his chronic conditions, patient reports he has not taken his Biktarvy in about 5 days, but is otherwise compliant. REVIEW OF SYSTEMS: All other systems were reviewed and are negative except as noted above in the HPI. PAST MEDICAL HISTORY Past Medical History: Diagnosis Date Anal warts Borderline personality disorder (CMS/HCC) ([facility]) Depression prior suicide attempts (10/2023, 02/2024) Depression with suicidal ideation HIV (human immunodeficiency virus infection) ([facility]) HIV (human immunodeficiency virus infection) (HCC) Dx 2018 Methamphetamine use disorder, moderate, in early remission (HCC) Neuropathy (CMS/HCC) PTSD (post-traumatic stress disorder) Syphilis (acquired) Rx'd with 3 IM doses of Penicillni per patient PAST SURGICAL HISTORY Past Surgical History: Procedure Laterality Date LUMBAR PUNCTURE WO INJECTION, DIAGNOSTIC N/A 10/12/2023 ALLERGIES AND DRUG REACTIONS No Known Allergies HOME MEDICATIONS HOME MEDICATIONS : ARIPiprazole (ABILIFY) 5 mg tablet yndxxwwdhjl-xgfrpfokvmdij-licvzoljc (Biktarvy) 50-200-25 mg tablet oqtzjefmyia-karrdxbljkazn-rpjifybmf (BIKTARVY) 50-200-25 mg tablet cloNIDine (CATAPRES) 0.1 mg tablet doxepin (SINEquan) [address] (CYMBALTA) 60 mg capsule hydrOXYzine (ATARAX) 50 mg tablet CURRENT FACILITY-ADMINISTERED MEDICATIONS Scheduled Medications: ampicillin-sulbactam, 3 g, intravenous, Q6H KIMBERLEY ARIPiprazole, 10 mg, oral, Daily lyeeyfxbsbe-eewwxzgxovwft-cczustckt, 1 tablet, oral, Daily doxepin, 25 mg, oral, Nightly DULoxetine DR, 60 mg, oral, Daily enoxaparin, 40 mg, subcutaneous, Daily-2100 sodium chloride 0.9%, 0.5-20 mL, intra-catheter, Q8H KIMBERLEY PRN Medications: acetaminophen, 650 mg sodium chloride 0.9%, 30 mL hydrOXYzine, 50 mg ondansetron ODT, 4 mg OR ondansetron, 4 mg sodium chloride 0.9%, 0.5-20 mL FAMILY HISTORY Family History Problem Relation Age of Onset Suicide Completion Father Other (overdose) Father Hypertension Maternal Grandmother Diabetes type II Maternal Grandmother SOCIAL HISTORY Social History Tobacco Use Smoking status: Former Types: Cigarettes Passive exposure: Current Smokeless tobacco: Never Substance and Sexual Activity Drug use: Yes Frequency: 3.0 times per week Types: Methamphetamines, Alcohol, Marijuana Comment: states he's in sober living/rehab for meth Sexual activity: Yes Partners: Male Alcohol Use: Not At Risk (02/24/2024) AUDIT-C Frequency of Alcohol Consumption: Never Average Number of Drinks: Patient does not drink Frequency of Binge Drinking: Never OBJECTIVE VITALS Vitals: 04/04/24 1645 BP: 147/78 Pulse: 74 Resp: 16 Temp: 37.7 ??C (99.9 ??F) SpO2: 94% Arrival Vitals [04/04/24 0934] Temp 37.1 ??C (98.7 ??F) Pulse 110 Resp 18 BP 124/98 SpO2 100 % Temp src Axillary Heart Rate Source Patient Position BP Location FiO2 (%) 24hr Min/Max: Temp Min: 37.1 ??C (98.7 ??F) Max: 37.7 ??C (99.9 ??F) Pulse Min: 68 Max: 110 BP Min: 123/59 Max: 154/78 Resp Min: 16 Max: 18 SpO2 Min: 94 % Max: 100 % Intake/Output Summary (Last 24 hours) at 04/04/2024 1802 Last data filed at 04/04/2024 1233 Gross per 24 hour Intake 1110 ml Output -- Net 1110 ml PHYSICAL EXAM Constitutional: Well-developed, visible psychomotor agitation HEENT: Moist MM, poor dentition with broken tooth to gumline on the right. Visible swelling of right mandible with mild tenderness to palpation Neck: Supple, no lymphadenopathy Cardiovascular: tachycardic, regular rhythm, S1/S2 normal. Pulmonary/Chest: Normal respiratory effort and breath sounds. No wheezes or rales. Abdominal: Soft, non-tender, non-distended. Normoactive bowel sounds. Musculoskeletal: No lower extremity edema. Neurological: psychomotor agitation present; alert and oriented x3 Skin: Skin is warm and dry. Psychiatric: expresses active suicidal ideation, no homicidal ideation LABS CBC Recent Labs Lab Units 04/04/24 0939 WBC K/cumm 5.2 HEMOGLOBIN g/dL 14.3 HEMATOCRIT % 44.5 PLATELETS K/cumm 257 NEUTROS PCT % 63.4 LYMPHS PCT % 25.1 MONOS PCT % 10.3 EOS PCT % 0.4 Chem Recent Labs Lab Units 04/04/24 0939 SODIUM mmol/L 141 POTASSIUM PLASMA mmol/L 4.5 CHLORIDE mmol/L 104 CO2 mmol/L 27 ANIONGAP mmol/L 10 BUN SERUM mg/dL 15 CREATININE mg/dL 0.98 GLUCOSE mg/dL 84 CALCIUM mg/dL 9.4 LFTs Recent Labs Lab Units 04/04/24 0939 ALK PHOS Units/L 87 BILIRUBIN TOTAL mg/dL 0.8 TOTAL PROTEIN g/dL 9.3* ALT Units/L 29 AST Units/L 47 Coags Cardiac Enzymes No results found for: TROPONINI Urine Analysis ABG Micro: NA OTHER STUDIES CT Facial Bones W Contrast Result Date: 04/04/2024 Narrative: EXAMINATION: CT of the maxillofacial bones, orbits, and paranasal sinuses with contrast HISTORY: Maxillary/facial abscess. TECHNIQUE: Computed tomography of the maxillofacial bones, orbits, and paranasal sinuses was performed according to standard protocol following the uneventful administration of intravenous contrast. CONTRAST: 69 mL Optiray-350 COMPARISON: No priors. FINDINGS: The patient is partially edentulous with multiple prominent dental caries involving the right mandibular teeth. In particular, there are large caries involving the right mandibular 1st premolar and 1st molar with associated dental abscess involving the right 1st premolar which measures approximately 2.1 x 0.6 x 1.5 cm. There is no apparent erosion of the adjacent alveolar ridge. Marked overlying right facial cellulitis is noted. No acute maxillofacial fractures are identified. The visualized portionsof the orbits are normal. The visualized portions of the mastoids are normal. The visualized portions of the paranasal sinuses are normal. The nasal septum is at midline. Impression: Right 1st premolar dental abscess with marked overlying facial cellulitis but no apparent signs of underlying osteomyelitis. Electronically signed by: Domenic Crawford MD CT Head WO Contrast Result Date: 03/19/2024 Narrative: EXAMINATION: CT head without contrast HISTORY: Altered mental status, history of HIV TECHNIQUE: CT of the head was performed with images acquired from skull base to vertex without intravenous contrast. COMPARISON: CT dated 10/10/2023 FINDINGS: There is no acute intracranial hemorrhage. Unchanged diffuse cerebral volume loss with mild ex vacuo dilation of the ventricles. No mass effect or midline shift is present. The hobbs-white matter differentiation is normal. The visualized portions of the orbits are normal. The visualized portions of the mastoids are normal. Trace mucosal thickening of the paranasal sinuses. No fractures are identified. Impression: 1. No acute intracranial hemorrhage or large edematous infarct. 2. Unchanged diffuse cerebral atrophy with associated ex vacuo dilation of the ventricles which may be related to sequelae of chronic HIV infection. Dictated by: Dannie Gerber MD The radiology attending physician has personally reviewed this study, and had reviewed and/or edited this written report and agrees with it. Electronically signed by: Rosa Yost M.D., Ph.D. ECG 12 lead Result Date: 03/18/2024 Narrative: Pramod Ortiz MD 03/18/2024 9:27 PM ECG 12 lead Date/Time: 03/18/2024 9:26 PM Performed by: Pramod Ortiz MD Authorized by: Cuco Christy MD Rate: ECG rate: Rate 55, narrow complex, regular, sinus, no stemi. ASSESSMENT AND PLAN Phil Chase is a 28 y.o. male with hx of HIV (CD4 230 03/18/2024, Viral load undetectable 02/26/2024),stimulant use disorder (methamphetamine) and borderline personality disorder who presented to the ED on 04/04/2024 for suicidal ideation and facial swelling. On CT patient found to have dental abs cess for which ENT was consulted and I&D was performed. Patient admitted to the hospital for treatment with IV abx. #Mandibular Abscess s/p I&D Patient with right facial swelling and pain, with CT confirming mandibular abscess with overlying cellulitis, no evidence of osteomyelitis. Started on amp/sulbactam in the ED. Seen by ENT in the ED, now s/p I&D of abscess. Abx course: (amp/sulbactam 04/04-) -continue amp/sulbactam -ENT following, appreciate recs #Suicidal Ideation #Unspecified mood disorder #borderline personality disorder Patient with history of multiple psychiatric hospitalizations, including for suicidal ideation/attempts. When seen patient continues to endorse active SI. -home abilify, doxepin, and duloxetine continued -home hydroxyzine continued -psych consult in AM -suicide precautions placed #HIV Patient diagnosed in 2018. Stable on biktarvy at home, however reports he has not taken in 5 days. Last CD4 03/18/2024 was 230 (17%) and viral load 02/26/2024 not detected. -repeat CD4 and viral load ordered -continue home biktarvy #Stimulant use disorder, amphetamine type Patient reporting recent return to use. Denies other drug use, however documentation of prior fentanyl use noted. Patient with psychomotor agitation on exam which may be consistent with methamphetamine withdrawal. -UDS pending -CTM withdrawal symptoms - Diet: Adult Diet Restricted; Mechanical Soft - DVT PPX: lovenox 40mg daily - Access:right PIV - PT/OT:pending further evaluation - CODE STATUS: Full Code EMERGENCY CONTACT Contact: Extended Emergency Contact Information Primary Emergency Contact: Sarah Simpson Mobile Relation: Mother Secondary Emergency Contact: Shabbir De La Rosa Relation: Tester Armature Or Fields Brandy Beyer MD Internal Medicine PGY-1 Cosigned by Con Lewis MD at 04/04/2024 9:54 PM CDT Associated attestation - Con Lewis MD - 04/04/2024 9:54 PM CDT HOSPITAL ATTENDING DOCUMENTATION I have seen and examined the patient on 04/04/24. I agree with the findings and plan of care as documented in the resident's/fellow's note. States his mood is a little better. Eating. 1:1 sitter at bedside. R upper gingiva swollen s/p I&D. Will offer some vicodin to help with pain. Slightly agitated when awakens (but pleasant), unclear from meth use? On exam no rigidity/cogwheeling or clonus/spasticity. Medications: Scheduled: ampicillin-sulbactam, 3 g, intravenous, Q6H KIMBERLEY ARIPiprazole, 10 mg, oral, Daily dwimghwamna-iboqcodosndyw-dxtpthrou, 1 tablet, oral, Daily doxepin, 25 mg, oral, Nightly DULoxetine DR, 60 mg, oral, Daily enoxaparin, 40 mg, subcutaneous, Daily-2100 sodium chloride 0.9%, 0.5-20 mL, intra-catheter, Q8H KIMBERLEY Infusions: PRN: acetaminophen sodium chloride 0.9% hydrOXYzine ondansetron ODT OR ondansetron ramelteon sodium chloride 0.9% DVT Prophylaxis: LMWH Code Status: Full Code PT/OT Dispo Rec : / Supplementary Attestation Our team: My total encounter time on this service date was 60 minutes which was spent performing a kcog-yl-jacs encounter and personally completing the provider-level activities documented in the note. This includes time spent prior to the visit and after the visit in direct care of the patient. This time does not include time spent in any separately reportable services. Con Lewis MD [facility] Medicine documented in this encounter Consult Notes * Kay Granados MD PhD - 04/08/2024 4:16 PM CDTAssociated Order(s): CONSULT TO GENERAL INFECTIOUS DISEASE Infectious Disease Initial Consult Note Infectious Disease Team: General 1 Contact Information: Please see [facility] Treatment Team listing for up-to-date contact information. Requesting Physician: Jimmy Rodgers, * Reason for Consult: HIV positive, previously undetectable VL, now detectable in the setting of recent medication nonadherence Chief Complaint: dental extractions HPI: The patient is a 28 y.o. man with a history of HIV (Biktarvy) and stimulant use disorder who was admitted for dental abscess. 04/08 HIV titer found to be 4280 after previously being undetectable 02/25. 04/04 CD4 138 (14%), with prior CD4 03/18 230 (17%). ID was consulted due to concern for possibility of antiviral medication resistance. Per last ID Note by Dr. Kota Euceda 02/26/2024 - Mr. Chase follows at [facility] with Dr. Sullivan. He was diagnosed with HIV in 2018 at [facility] when he presented with severe tonsillitis. HIV viral load was 74,000, genotype with Akua: RT L210W, T215S, K103N; SC: I50L, A71V, V82M;IN: not done. Baseline CD4 64, 7%. He also had syphilis of uknown duration at the time with an RPR 1:1028. In 11/2022 he established care with Dr. Sullivan at [facility] and has been following with her since then. It appears that HIV was successfully suppressed on Biktarvy and he had CD4 recovery up to 202 in 2022. On interview today on 5400, he stated initially that he had not taken his Biktarvy for 5 days. Whenasked if he might have missed more medication that 5 days, he said yes. He then stated he had nottaken his medication for at least the last 2 weeks. On repeat interview later with the rest of the team, he stated he had not taken his medication for a month and had only been taking it when he was admitted. He said he has access to medication and enough medication with him, but due to stresses with being homeless and his addiction, he has not remembered to take it. Per chart, he has an appointment with a dental provider at [facility] 04/11, so he is still connected with them. He wants to continue taking his medication and following with Dr. Sullivan at [facility]. Wediscussed that he should call his correctional case records supervisor and the [facility] clinic for an appointment, and keep his appointment 04/11 (if still relevant given recent inpatient dental treatment). Review of systems was positive for some facial pain following dental procedure. He specifically requested STI testing when asked if he need anything else, although he seemed hesitant to want to get in details about his request. We discussed throat, rectal, oral swabs for gonorrhea and chlamydia as well as syphilis testing. ROS otherwise negative. He denied any IV drug use. Subjective Past Medical History: No date: Anal warts No date: Borderline personality disorder ([facility]) ([facility]) No date: Depression Comment: prior suicide attempts (10/2023, 02/2024) No date: Depression with suicidal ideation No date: HIV (human immunodeficiency virus infection) ([facility]) No date: HIV (human immunodeficiency virus infection) ([facility]) Comment: Dx 2017 No date: Methamphetamine use disorder, moderate, in early remission ([facility]) No date: Neuropathy ([facility]) No date: PTSD (post-traumatic stress disorder) No date: Syphilis (acquired) Comment: Rx'd with 3 IM doses of Penicillni per patient Past Surgical History: 10/12/2023: LUMBAR PUNCTURE WO INJECTION, DIAGNOSTIC; N/A HOME MEDICATIONS : ARIPiprazole (ABILIFY) 5 mg tablet doxepin (SINEquan) [address] (CYMBALTA) 60 mg capsule hydrOXYzine (ATARAX) 50 mg tablet isjzrisfvhx-uehvlkwxbuzfb-hrqhuewik (BIKTARVY) 50-200-25 mg tablet cloNIDine (CATAPRES) 0.1 mg tablet Current Facility-Administered Medications Ordered in [facility] Medication Dose Route Frequency Provider Last Rate Last Admin acetaminophen (TYLENOL) tablet 650 mg 650 mg oral Q6H PRN Con Lewis MD 650 mg at 04/08/24 1346 Or HYDROcodone-acetaminophen (NORCO) 5-325 mg per tablet 1 tablet 1 tablet oral Q4H PRN Con Lewis MD ampicillin-sulbactam (UNASYN) 3 g/110 mL in sodium chloride 0.9% (premix) 3 g 3 g intravenous Q6H KIMBERLEY Brandy Beyer MD 0 mL/hr at 04/04/24 1233 3 g at 04/08/24 1337 ARIPiprazole (ABILIFY) tablet 10 mg 10 mg oral Daily Martha Haynes MD 10 mg at 04/08/24 0843 okktjwqplap-gatgajvecdtfx-vylskvobz (BIKTARVY) 50-200-25 mg per tablet 1 tablet 1 tablet oral DailyBrandy Beyer MD 1 tablet at 04/08/24 0843 Carrier Fluids for Secondary Infusion - 0.9% Sodium Chloride 30 mL intravenous PRN Ludmila Beyer MD doxepin (SINEquan) capsule 25 mg 25 mg oral Nightly Martha Haynes MD 25 mg at 04/07/242012 DULoxetine DR (CYMBALTA) extended release capsule 60 mg 60 mg oral Daily Martha Haynes MD 60 mg at 04/08/24 0843 [Held by Provider] enoxaparin (LOVENOX) syringe 40 mg 40 mg subcutaneous Daily- 2099 Brandy Beyer MD 40 mg at 04/06/242100 hydrOXYzine (ATARAX) tablet 50 mg 50 mg oral Q6H PRN Brandy Beyer MD 50 mg at 04/07/242012 ondansetron ODT (ZOFRAN-ODT) disintegrating tablet 4 mg 4 mg oral Q6H PRN Brandy Beyer MD Or ondansetron (ZOFRAN) injection 4 mg 4 mg intravenous Q6H PRN Brandy Beyer MD ramelteon (ROZEREM) tablet 8 mg 8 mg oral Nightly PRN Zarina Menon MD 8 mg at 04/07/242012 sodium chloride 0.9% flush 0.5-20 mL 0.5-20 mL intra-catheter Q8H KIMBERLEY Brandy Beyer MD10 mL at 04/08/24 1343 sodium chloride 0.9% flush 0.5-20 mL 0.5-20 mL intra-catheter PRN Brandy Beyer MD No current Epic-ordered outpatient medications on file. Anti-infectives (From admission, onward) Start Dose/Rate Route Frequency Ordered Stop 04/04/24 1745 msqkmccdxsi-gotuxagzodfwp-ugtrwvoeo (BIKTARVY) 50-200-25 mg per tablet 1 tablet 1 tablet oral Daily 04/04/24 1712 04/04/24 1200 ampicillin-sulbactam (UNASYN) 3 g/110 mL in sodium chloride 0.9% (premix) 3 g 3 g over 30 Minutes intravenous Every 6 hours scheduled 04/04/24 0934 Active Lines/Ports/Devices: Peripheral IV 04/07/24 20 G Anterior;Distal;Left Wrist (Active) Number of days: 1 Patient Allergies: No Known Allergies Social History Social History Narrative Merged History Encounter Data from: 03/01/24 Enc Dept: [facility] ED Born and raised: [facility], moved [place] [place] 8 [place] Currently lives: inpatient substance abuse rehab, pt says at [facility], but consult note says at [facility] Family Feels safe: yes Access to firearms: no currently while at inpatient substance abuse rehab Educ ation: per pt he graduated and college with a degree in computer science Work: Not currently employed, 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 reports that he has quit smoking. His smoking use included cigarettes. He has been exposed to tobacco smoke. He has never used smokeless tobacco. He reports current drug use. Frequency: 3.00 times per week. Drug: Methamphetamines. Patient denies consuming alcoholic drinks. Family history reviewed and non-contributory Family History Problem Relation Age of Onset Suicide Completion Father Other (overdose) Father Hypertension Maternal Grandmother Diabetes type II Maternal Grandmother Review of systems: Negative except for that stated in HPI. Objective Vitals: 24hr Min/Max: Temp Min: 36.4 ??C (97.5 ??F) Max: 36.6 ??C (97.9 ??F) Pulse Min: 48 Max: 66 BP Min: 107/52 Max: 124/65 Resp Min: 18 Max: 19 SpO2 Min: 96 % Max: 98 % Most Recent : Vitals: 04/08/24 1551 BP: Pulse: Resp: 18 Temp: SpO2: Vitals: 04/07/24200904/08/24 0420 04/08/24 0707 04/08/24 1551 BP: 107/52 117/65 124/65 BP Location: Right arm Right arm Right arm Patient Position: Pulse: 66 (!) 48 52 Resp: 18 19 18 18 Temp: 36.6 ??C (97.9 ??F) 36.4 ??C (97.5 ??F) TempSrc: Oral Oral Oral Oral SpO2: 96% 97% 98% Weight: Height: I/O last 2 completed shifts: In: 738 [P.O.:738] Out: - Physical Exam: Constitutional: Well appearing, no distress. Eyes: Conjunctivae and EOM are normal. Neck: Normal range of motion. Cardiovascular: Normal rate, regular rhythm, normal heart sounds and intact distal pulses. No murmurs, rubs, gallops. Pulmonary/Chest: Effort normal. No respiratory distress. CTABL. Abdominal: Soft, non-tender to palpation. Musculoskeletal: Normal bulk and tone. Neurological: Alert and oriented to person, place, and time. Face symmetric. No dysarthria. Moving all extremities spontaneously. Skin: Skin is warm, dry, and intact. No rash noted. Psychiatric: Normal mood and affect. Behavior is normal. Lab/Radiology/Diagnostic Review: I reviewed the following laboratory and imaging result(s). Micro: Lab Results Component Value Date MICROBIOLOGY Final Report: No growth of fungus [...] developed and its performance characteristics determined by [employer]. Ithas not been cleared or approved by the FDA; however, FDA clearance or approval is not currently required for clinical use. The results are not intended to be used as the sole means for clinical diagnosis or patient management decisions. MICROBIOLOGY Final Report: No growth of fungus 08/01/2017 MICROBIOLOGY (.) 08/01/2017 Final Report: Abundant Mixed upper respiratory tract microorganisms. Includes the following: Rare Staphylococcus aureus Methicillin susceptible (MSSA) by penicillin binding protein 2a (PBP2a) testing. This isolate is presumed to be resistant to clindamycin based on detection of inducible clindamycinresistance. Clindamycin may still be effective in some patients. Urinalysis: Resulted in the Past 12 Months 04/05/24 1153 COLORU Yellow CLARITYU Clear SPECGRAVU >1.042* PHURINE 6.5 PROTURQL 1+* GLUCOSEUR Negative KETONESU Trace BLOODUR Negative NITRITEU Negative LEUKESTUR Negative Hematology/Chemistry: CBC: Lab Results Component Value Date WBC 2.6 (L) 04/08/2024 HGB 13.1 04/08/2024 HCT 41.4 04/08/2024 LABPLAT 254 04/08/2024 NEUTOPHILPCT 28.8 04/08/2024 LYMPHOPCT 56.3 04/08/2024 MONOPCT 5.9 04/08/2024 EOSPCT 7.8 04/08/2024 CMP: Lab Results Component Value Date SODIUM 139 04/08/2024 POTASSIUM 4.3 04/08/2024 CHLORIDE 104 04/08/2024 CO2 29 04/08/2024 ANIONGAP 6 04/08/2024 GLUCOSE 93 04/08/2024 BUNSER 13 04/08/2024 CREATININE 0.91 04/08/2024 CALCIUM 8.7 04/08/2024 ALBUMIN 4.4 04/04/2024 ALKPHOS 87 04/04/2024 ALT 29 04/04/2024 AST 47 04/04/2024 BILITOT 0.8 04/04/2024 Creatinine:Estimated Creatinine Clearance: 130.3 mL/min (by Cockcroft-Gault based on SCr of 0.91 mg/dL). Resulted in the Past 12 Months 04/08/24 0028 04/06/24 2243 04/05/24 2215 CREATININE 0.91 0.94 1.03 Inflammatory Markers: Resulted in the Past 12 Months 10/10/23 1127 SEDRATE 12 CRP 2.1 Screening Results RPR: Lab Results Component Value Date LABRPR Reactive (A) 02/26/2024 LABRPR 1:64 (A) 02/26/2024 GC: Lab Results Component Value Date CTRACHOMATIS Not Detected 10/11/2023 CTRACHOMATIS Not Detected 10/11/2023 NGONORRHOEAE Not Detected 10/11/2023 NGONORRHOEAE Not Detected 10/11/2023 Hepatitis Serologies: Lab Results Component Value Date HEPAIGM Nonreactive 10/11/2023 HEPBSAG Nonreactive 10/11/2023 HEPBSAB Nonreactive 10/11/2023 HEPBCAB Nonreactive 10/11/2023 HEPCAB Nonreactive 10/11/2023 Virologic Testing: HIV Screen: Lab Results Component Value Date [id number] Reactive (A) 08/01/2017 CD4: Lab Results Component Value Date CD4ABS 138 (L) 04/04/2024 CD4PCT 14 (L) 04/04/2024 Common Virologic Results: Lab Results Component Value Date TJR4FUG Detected (A) 04/08/2024 BQY0FVA 4,280 04/08/2024 ASS1XQD 3.63 04/08/2024 CD4ABS 138 (L) 04/04/2024 CD4PCT 14 (L) 04/04/2024 TOXOIGG Negative 08/02/2017 Diagnostics: EKG:No results found for: VR , AR , PRIMSEC , QRSIMSEC , QTIMSEC , QT , PA , RA , TA , DIAG Echo: Imaging: No results found. No results found. Assessment/Plan HIV infection Prior syphilis infection, treated 28 yo man with history of HIV who was previously suppressed on anti-retroviral therapy (Biktarvy) as of 02/25. Now admitted for dental infection with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 Ax[employer]. Patient had previously completed an intake with [facility] in January and was in the system. Patient completed the intake and Mady sent a message over to the coordinator who handles bed placement. [facility] is scheduling mens beds a month out. Social Work put in a call to [facility], [address] [place] [address] ([phone]) to see if they had any available rehab beds. The facility is men's only. Social Work left a message on Sacha (physical therapy coordinator) voice mail and left a message. Social Work left a message for patient's mother, Sarah Simpson ([phone]), about patient possiblydischarging to her home. Social Work called patient's trimming caser Shabbir De La Rosa ([phone]) with [facility] to update her and ask if there are any other options for the patient. Social Work left a message for a return call. ADDENDUM: Social Work spoke with Shabbir. She said that unfortunately Manuel has burned many bridges and [facility] is most likely his best bet. She provided Social Work with a phone number for Saúl ([phone] ext. [phone]) at [facility]. Social Work left a message for a return call. Social Work remains available for additional patient needs. AIDE Wei Inpatient Director Print * Plan of Care - Chilo Palacios RN - 04/09/2024 11:53 AM CDT Goals: Clinical Goals for the Shift: 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, VSS Problem: Discharge Planning Goal: Understanding discharge needs will improve 04/09/2024 1152 by Chilo Palacios RN Outcome: Progressing 04/09/2024 1152 by Chilo Palacios RN Outcome: Progressing Problem: Respiratory Goal: Achieves optimal ventilation and oxygenation 04/09/2024 1152 by Chilo Palacios RN Outcome: Progressing 04/09/2024 1152 by Chilo Palacios RN Outcome: Progressing Problem: Infection Goal: Absence of infection during hospitalization 04/09/2024 1152 by Chilo Palacios RN Outcome: Progressing 04/09/2024 1152 by Chilo Palacios RN Outcome: Progressing Problem: Metabolic/Fluid and Electrolytes Goal: Electrolytes maintained within normal limits 04/09/2024 1152 by Chilo Palacios RN Outcome: Progressing 04/09/2024 1152 by Chilo Palacios RN Outcome: Progressing Goal: Hemodynamic stability and optimal renal function maintained 04/09/2024 1152 by Chilo Palacios RN Outcome: Progressing 04/09/2024 1152 by Chilo Palacois RN Outcome: Progressing Problem: Hematologic Goal: Maintains hematologic stability 04/09/2024 1152 by Chilo Palacios RN Outcome: Progressing 04/09/2024 1152 by Chilo Palacios RN Outcome: Progressing Problem: Suicide Risk Goal: Ability to make informed decisions regarding treatment will improve 04/09/2024 1152 by Chilo Palacios RN Outcome: Progressing 04/09/2024 1152 by Chilo Palacios RN Outcome: Progressing Goal: Ability to cope will improve 04/09/2024 1152 by Chilo Palacios RN Outcome: Progressing 04/09/2024 1152 by Chilo Palacios RN Outcome: Progressing Goal: Identification of resources available to assist in meeting health care needs will improve 04/09/2024 1152 by Chilo Palacios RN Outcome: Progressing 04/09/2024 1152 by Chilo Palacios RN Outcome: Progressing Goal: Decreased thoughts of self harm 04/09/2024 1152 by Chilo Palacios RN Outcome: Progressing 04/09/2024 1152 by Chilo Palacios RN Outcome: Progressing Goal: Compliance with prescribed medication regimen will improve 04/09/2024 1152 by Chilo Palacios RN Outcome: Progressing 04/09/2024 1152 by Chilo Palacios RN Outcome: Progressing Goal: Ability to remain free from injury will improve 04/09/2024 1152 by Chilo Palacios RN Outcome: Progressing 04/09/2024 1152 by Chilo Palacios RN Outcome: Progressing Goal: Verbalizations of safety and security will increase 04/09/2024 1152 by Chilo Palacios RN Outcome: Progressing 04/09/2024 1152 by Chilo Palacios RN Outcome: Progressing Goal: Ability to disclose and discuss suicide ideas will improve 04/09/2024 1152 by Chilo Palacios RN Outcome: Progressing 04/09/2024 1152 by Chilo Palacios RN Outcome: Progressing Goal: Ability to verbalize positive feelings 04/09/2024 1152 by Chilo Palacios RN Outcome: Progressing 04/09/2024 1152 by Chilo Palacios RN Outcome: Progressing Problem: Self-injurious Low Risk Goal: Knowledge of safety and abstaining from self-injurious behavior will increase 04/09/2024 1152 by Chilo Palacios RN Outcome: Progressing 04/09/2024 1152 by Chilo Palacios RN Outcome: Progressing Goal: Knowledge of therapies/resources will increase 04/09/2024 1152 by Chilo Palacios RN Outcome: Progressing 04/09/2024 1152 by Chilo Palacios RN Outcome: Progressing Goal: Ability to manage health-related needs will improve 04/09/2024 1152 by Chilo Palacios RN Outcome: Progressing 04/09/2024 1152 by Chilo Palacios RN Outcome: Progressing Goal: Ability to remain free from injury will improve 04/09/2024 1152 by Chilo Palacios RN Outcome: Progressing 04/09/2024 1152 by Chilo Palacios RN Outcome: Progressing Problem: Lack of Knowledge Goal: Ability to develop a pain control plan will improve 04/09/2024 1152 by Chilo Palacios RN Outcome: Progressing 04/09/2024 1152 by Chilo Palacios RN Outcome: Progressing Problem: Medication Goal: Satisfaction with pain management medication regimen will improve 04/09/2024 1152 by Chilo Palacios RN Outcome: Progressing 04/09/2024 1152 by Chilo Palacios RN Outcome: Progressing Problem: Sensory Goal: Ability to identify factors that increase pain levels will improve while working to decrease the patient's pain levels 04/09/2024 1152 by Chilo Palacios RN Outcome: Progressing 04/09/2024 1152 by Chilo Palacios RN Outcome: Progressing Problem: Coping Goal: Ability to cope will improve 04/09/2024 1152 by Chilo Palacios RN Outcome: Progressing 04/09/2024 1152 by Chilo Palacios RN Outcome: Progressing Problem: Health Behavior Goal: Identification of resources available to assist in meeting health care needs will improve 04/09/2024 1152 by Chilo Palacios RN Outcome: Progressing 04/09/2024 1152 by Chilo Palacios RN Outcome: Progressing Problem: Fall Risk Goal: Ability to state ways to decrease the risk of falls will improve 04/09/2024 1152 by Chilo Palacios RN Outcome: Progressing 04/09/2024 1152 by Chilo Palacios RN Outcome: Progressing Goal: Will remain free from falls 04/09/2024 1152 by Chilo Palacios RN Outcome: Progressing 04/09/2024 1152 by Chilo Palacios RN Outcome: Progressing * Medical Student - Munira Laughlin - 04/09/2024 8:40 AM CDT MEDICINE DAILY PROGRESS NOTE Date of Admission: 04/04/2024 Date of Service: 04/09/24 CARE TEAM Patient: Phil Chase Room: [id number] Admitting physician: Jimmy Rodgers MD Service: Medical Primary Care Physician: Mady Sullivan MD SUBJECTIVE CHIEF COMPLAINT Chief Complaint Patient presents with Suicidal Ideation BRIEF HPI Phil Chase is a 28 y.o. male with a hx of HIV (CD4 230 03/18/24, viral load undetectable 02/26/24), stimulant use disorder (amphetamine type), borderline personality disorder, PTSD, and unspecified mood disorder who presented to the ED 04/04/2024 for suicidal ideation and facial swelling, foundto have a premolar dental abscess with overlying facial cellulitis 24-HOUR INTERVAL HISTORY - S/p dental extraction of 2 teeth yesterday - Reports 03/01 oral pain, PRNs have been helpful - Seen by ID yesterday, recommended: - Starting Bactrim 800-160mg for PJP prophylaxis - HIV genotyping - STI, HBV, and HCV testing - Patient endorsed active SI today in the context of discussing discharge SUBJECTIVE Negative except for noted above ALLERGIES No Known Allergies CURRENT MEDICATIONS Scheduled Medications: ampicillin-sulbactam, 3 g, intravenous, Q6H KIMBERLEY ARIPiprazole, 10 mg, oral, Daily daddeqofivf-cznjjjieswaem-lekfqsnom, 1 tablet, oral, Daily doxepin, 25 mg, oral, Nightly DULoxetine DR, 60 mg, oral, Daily enoxaparin, 40 mg, subcutaneous, Daily-2100 sodium chloride 0.9%, 0.5-20 mL, intra-catheter, Q8H KIMBERLEY sulfamethoxazole-trimethoprim, 160 mg of trimethoprim, oral, Daily PRN Medications: acetaminophen, 650 mg, 650 mg at 04/08/24 1346 OR HYDROcodone-acetaminophen, 1 tablet, 1 tabletat 04/08/242047 sodium chloride 0.9%, 30 mL hydrOXYzine, 50 mg, 50 mg at 04/07/242012 ondansetron ODT, 4 mg OR ondansetron, 4 mg ramelteon, 8 mg, 8 mg at 04/08/242047 sodium chloride 0.9%, 0.5-20 mL OBJECTIVE ROS Review of systems per HPI and otherwise all other systems are negative VITALS / I&Os 24hr Min/Max: Temp Min: 36.5 ??C (97.7 ??F) Max: 36.7 ??C (98.1 ??F) Pulse Min: 61 Max: 69 BP Min: 99/71 Max: 128/60 Resp Min: 18 Max: 19 SpO2 Min: 97 % Max: 100 % Most Recent: Vitals: 04/09/24 0700 BP: Pulse: Resp: 18 Temp: SpO2: Intake/Output Summary (Last 24 hours) at 04/09/2024 0840 Last data filed at 04/08/2024 2055 Gross per 24 hour Intake 1018 ml Output 400 ml Net 618 ml PHYSICAL EXAM Constitutional: Well-developed, well-nourished. In mild discomfort s/p dental extractions. HEENT: Moist MM. Normal conjunctiva, no scleral icterus. Erythema in location of dental extractions. Cardiovascular: Normal rate, regular rhythm, S1/S2 normal. No murmurs or extra heart sounds. Pulmonary/Chest: Normal respiratory effort and breath sounds. No wheezes or rales. Abdominal: Soft, non-tender, non-distended. No guarding or rebound present. Musculoskeletal: No lower extremity edema. Neurological: AAO to person, place, and time; moving all extremities spontaneously. Skin: Skin is warm and dry. Psychiatric: Endorses active SI with plan. LABS CBC Recent Labs Lab Units 04/08/24 2047 WBC K/cumm 3.0* HEMOGLOBIN g/dL 13.3 HEMATOCRIT % 42.3 PLATELETS K/cumm 282 NEUTROS PCT % 34.7 LYMPHS PCT % 49.2 MONOS PCT % 9.4 EOS PCT % 5.7 Chem Recent Labs Lab Units 04/08/24 2047 SODIUM mmol/L 138 POTASSIUM PLASMA mmol/L 4.3 CHLORIDE mmol/L 103 CO2 mmol/L 28 ANIONGAP mmol/L 7 BUN SERUM mg/dL 15 CREATININE mg/dL 0.99 GLUCOSE mg/dL 81 CALCIUM mg/dL 8.9 LFTs Recent Labs Lab Units 04/04/24 0939 ALK PHOS Units/L 87 BILIRUBIN TOTAL mg/dL 0.8 TOTAL PROTEIN g/dL 9.3* ALT Units/L 29 AST Units/L 47 Coags Recent Labs Lab Units 04/08/24 0028 APTT sec 31 INR 1.05 Cardiac Enzymes No results found for: TROPONINI Urine Analysis Recent Labs Lab Units 04/05/24 1153 COLOR U Yellow CLARITY U Clear SPEC GRAV U >1.042* PH, URINE 6.5 PROTEIN UR QL 1+* GLUCOSE URQL Negative KETONES UR Trace BLOOD UR Negative NITRITE UR Negative LEUKOCYTE ESTERASE UR Negative Micro: 04/08: HepBsAg non-reactive 04/08: HBsAb non-reactive 04/08: Hep C Ab non-reactive 04/08: N. gonorrhea not detectable in throat, rectum, or urine 04/08: C. trachomatis not detectable in throat, rectum, or urine 04/08: RPR reactive, 1:64 (stable from prior testing) ASSESSMENT & PLAN Phil Chase is a 28 y.o. male with a hx of HIV (CD4 230 03/18/24, viral load undetectable 02/26/24), stimulant use disorder (amphetamine type), borderline personality disorder, PTSD, and unspecified mood disorder who presented to the ED wth suicidal ideation and facial swelling, found to have a premolar dental abscess with overlying facial cellulitis s/p I&D in the ED. #Mandibular Abscess s/p I&D Patient presented with right facial swelling and pain, with CT confirming a mandibular abscess withoverlying cellulitis without evidence of osteomyelitis. Started on amp/sulbactam in the ED. Seen byENT in the ED, now s/p I&D of abscess. Abx course: amp/sulbactam (04/04-) - S/p extraction of two teeth 04/08 - PRN medications for pain - Switch amp/sulbactam to augmentin at discharge, to be continued for 10 days of total antibiotics #Suicidal Ideation #Unspecified Mood Disorder #Borderline personality disorder Patient has a history of multiple psychiatric hospitalizations (most recently discharged 03/03/24), including some for suicidal ideation/attempts. Seen by psychiatry 04/05 who were not concerned that the patient was at risk of harming himself and said he did not meet criteria for psychiatric admission. Patient reports active SI with plan this morning; per psychiatry this is chronic and patient would not benefit from psychiatric admission. - Continue home abilify 10mg, doxepin 25mg, and cymbalta 60mg daily, and hydroxyzine 50mg PRN - Work with patient to ensure safe plan for discharge #HIV Patient diagnosed in 2017. Previously compliant with biktarvy, but reports he did not take it the 5days prior to admission. Re-started 04/04. Last CD4 03/18/2024 was 230 (17%) and viral load 02/26/2024 undectable. CD4 04/04/24 was 138 (14%) and viral load 04/08/24 detectable at 4280. Per ID conversion yesterday, the patient has not been taking his Biktarvy for the past month or so. HBV and HCV testing04/08 non-reactive and chlamydia and gonorrhea testing 04/08 negative. - ID saw him yesterday, recommended: - Start Bactrim 800-160mg for PJP prophylaxis - Obtain HIV genotyping to be followed up with by outside provider - Schedule follow-up at [facility]; appointment made for Sun, 04/11, 9:30am - Continue home biktarvy #Stimulant use disorder, amphetamine type Patient reporting recent return to use. Denies other drug use, but there is prior documentation of fentanyl use. UDS 04/05 presumptively positive for amphetamines, cocaine, and fentanyl, confirmation not ordered. No psychomotor agitation on exam today. - CTM withdrawal symptoms - SW trying to identify rehab facilities for patient to discharge to - Diet: Adult Diet Restricted; Mechanical Soft - DVT PPX: Subq Lovenox - Access: L forearm PIV - CODE STATUS: Full Code - Dispo: Pending rehab or care home placement EMERGENCY CONTACT Contact: Extended Emergency Contact Information Primary Emergency Contact: Sarah Simpson Mobile Relation: Mother RIGO Corley Cosigned by Jimmy Rodgers MD at 04/10/2024 4:24 PM CDT * Plan of Care - Amara Dickey RN - 04/09/2024 3:00 AM CDT Goals: Clinical Goals for the Shift: 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, VSS Summary: Problem: Infection Goal: Absence of infection during hospitalization Outcome: Progressing Problem: Metabolic/Fluid and Electrolytes Goal: Electrolytes maintained within normal limits Outcome: Progressing Goal: Hemodynamic stability and optimal renal function maintained Outcome: Progressing * Plan of Care - Vince Byers - 04/08/2024 10:30 AM CDT Problem: Discharge Planning Goal: Understanding discharge needs will improve Outcome: Progressing Problem: Respiratory Goal: Achieves optimal ventilation and oxygenation Outcome: Progressing Problem: Infection Goal: Absence of infection during hospitalization Outcome: Progressing Problem: Metabolic/Fluid and Electrolytes Goal: Electrolytes maintained within normal limits Outcome: Progressing Goal: Hemodynamic stability and optimal renal function maintained Outcome: Progressing Problem: Hematologic Goal: Maintains hematologic stability Outcome: Progressing Problem: Suicide Risk Goal: Ability to make informed decisions regarding treatment will improve Outcome: Progressing Goal: Ability to cope will improve Outcome: Progressing Goal: Identification of resources available to assist in meeting health care needs will improve Outcome: Progressing Goal: Decreased thoughts of self harm Outcome: Progressing Goal: Compliance with prescribed medication regimen will improve Outcome: Progressing Goal: Ability to remain free from injury will improve Outcome: Progressing Goal: Verbalizations of safety and security will increase Outcome: Progressing Goal: Ability to disclose and discuss suicide ideas will improve Outcome: Progressing Goal: Ability to verbalize positive feelings Outcome: Progressing Problem: Self-injurious Low Risk Goal: Knowledge of safety and abstaining from self-injurious behavior will increase Outcome: Progressing Goal: Knowledge of therapies/resources will increase Outcome: Progressing Goal: Ability to manage health-related needs will improve Outcome: Progressing Goal: Ability to remain free from injury will improve Outcome: Progressing Problem: Lack of [...] Will remain free from falls Outcome: Progressing Goals: Clinical Goals for the Shift: 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, VSS Summary: * Medical Student - Munira Laughlin - 04/08/2024 8:33 AM CDT MEDICINE DAILY PROGRESS NOTE Date of Admission: 04/04/2024 Date of Service: 04/08/24 CARE TEAM Patient: Phil Chase Room: [id number] Admitting physician: Jimmy Rodgers MD Service: Medical Primary Care Physician: Mady Sullivan MD SUBJECTIVE CHIEF COMPLAINT Chief Complaint Patient presents with Suicidal Ideation BRIEF HPI Phil Chase is a 28 y.o. male with a hx of HIV (CD4 230 03/18/24, viral load undetectable 02/26/24), stimulant use disorder (amphetamine type), borderline personality disorder, PTSD, and unspecified mood disorder who presented to the ED 04/04/2024 for suicidal ideation and facial swelling, foundto have a premolar dental abscess with overlying facial cellulitis 24-HOUR INTERVAL HISTORY - NAEO - Received tylenol 650mg x2 yesterday with improvement in facial pain - NPO at midnight for OMFS evaluation today - Working with SW to identify rehab facility for discharge SUBJECTIVE Negative except for noted above ALLERGIES No Known Allergies CURRENT MEDICATIONS Scheduled Medications: ampicillin-sulbactam, 3 g, intravenous, Q6H KIMBERLEY ARIPiprazole, 10 mg, oral, Daily ewqvwbsiimt-mmivhplcwczle-qnlixbdjf, 1 tablet, oral, Daily doxepin, 25 mg, oral, Nightly DULoxetine DR, 60 mg, oral, Daily [Held by Provider] enoxaparin, 40 mg, subcutaneous, Daily-2100 sodium chloride 0.9%, 0.5-20 mL, intra-catheter, Q8H KIMBERLEY PRN Medications: acetaminophen, 650 mg, 650 mg at 04/07/242012 OR HYDROcodone-acetaminophen, 1 tablet sodium chloride 0.9%, 30 mL hydrOXYzine, 50 mg, 50 mg at 04/07/242012 ondansetron ODT, 4 mg OR ondansetron, 4 mg ramelteon, 8 mg, 8 mg at 04/07/242012 sodium chloride 0.9%, 0.5-20 mL OBJECTIVE ROS Review of systems per HPI and otherwise all other systems are negative VITALS / I&Os 24hr Min/Max: Temp Min: 36.4 ??C (97.5 ??F) Max: 36.6 ??C (97.9 ??F) Pulse Min: 48 Max: 66 BP Min: 107/52 Max: 125/66 Resp Min: 18 Max: 19 SpO2 Min: 96 % Max: 98 % Most Recent: Vitals: 04/08/24 0707 BP: Pulse: Resp: 18 Temp: SpO2: Intake/Output Summary (Last 24 hours) at 04/08/2024 0833 Last data filed at 04/08/2024 0720 Gross per 24 hour Intake 498 ml Output 700 ml Net -202 ml PHYSICAL EXAM Constitutional: Well-developed, well-nourished, and in no distress. HEENT: Moist MM. Poor dentition, multiple teeth missing and tooth on right broken to the gumline. Mild swelling of the right mandible. Cardiovascular: Normal rate, regular rhythm, S1/S2 normal. No murmurs or extra heart sounds. Pulmonary/Chest: Normal respiratory effort and breath sounds. No wheezes or rales. Abdominal: Soft, non-tender, non-distended. No guarding or rebound present. Musculoskeletal: No lower extremity edema. Neurological: AAO to person, place, and time; moving all extremities spontaneously. Skin: Skin is warm and dry. Psychiatric: Mood significantly improved since admission. LABS CBC Recent Labs Lab Units 04/08/24 0028 WBC K/cumm 2.6* HEMOGLOBIN g/dL 13.1 HEMATOCRIT % 41.4 PLATELETS K/cumm 254 NEUTROS PCT % 28.8 LYMPHS PCT % 56.3 MONOS PCT % 5.9 EOS PCT % 7.8 Chem Recent Labs Lab Units 04/08/24 0028 SODIUM mmol/L 139 POTASSIUM PLASMA mmol/L 4.3 CHLORIDE mmol/L 104 CO2 mmol/L 29 ANIONGAP mmol/L 6 BUN SERUM mg/dL 13 CREATININE mg/dL 0.91 GLUCOSE mg/dL 93 CALCIUM mg/dL 8.7 LFTs Recent Labs Lab Units 04/04/24 0939 ALK PHOS Units/L 87 BILIRUBIN TOTAL mg/dL 0.8 TOTAL PROTEIN g/dL 9.3* ALT Units/L 29 AST Units/L 47 Coags Recent Labs Lab Units 04/08/24 0028 APTT sec 31 INR 1.05 Cardiac Enzymes No results found for: TROPONINI Urine Analysis Recent Labs Lab Units 04/05/24 1153 COLOR U Yellow CLARITY U Clear SPEC GRAV U >1.042* PH, URINE 6.5 PROTEIN UR QL 1+* GLUCOSE URQL Negative KETONES UR Trace BLOOD UR Negative NITRITE UR Negative LEUKOCYTE ESTERASE UR Negative OTHER STUDIES 04/04/24: CD4 138 (14%) ASSESSMENT & PLAN Phil Chase is a 28 y.o. male with a hx of HIV (CD4 230 03/18/24, viral load undetectable 02/26/24), stimulant use disorder (amphetamine type), borderline personality disorder, PTSD, and unspecified mood disorder who presented to the ED wth suicidal ideation and facial swelling, found to have a premolar dental abscess with overlying facial cellulitis s/p I&D in the ED. #Mandibular Abscess s/p I&D Patient presented with right facial swelling and pain, with CT confirming a mandibular abscess withoverlying cellulitis without evidence of osteomyelitis. Started on amp/sulbactam in the ED. Seen byENT in the ED, now s/p I&D of abscess. Abx course: amp/sulbactam (04/04-) - Started NPO at midnight for OMFS consult today - Switch amp/sulbactam to augmentin in anticipation of discharge #Suicidal Ideation #Unspecified Mood Disorder #Borderline personality disorder Patient has a history of multiple psychiatric hospitalizations (most recently discharged 03/03/24), including some for suicidal ideation/attempts. Seen by psychiatry 04/05 who were not concerned that the patient was at risk of harming himself and said he did not meet criteria for psychiatric admission. Patient reports mood is much improved this morning. - Continue home abilify 10mg, doxepin 25mg, and cymbalta 60mg daily, and hydroxyzine 50mg PRN #HIV Patient diagnosed in 2017. Previously compliant with biktarvy, but reports he did not take it the 5days prior to admission. Re-started 04/04. Last CD4 03/18/2024 was 230 (17%) and viral load 02/26/2024 undectable. CD4 04/04/24 was 138 (14%). - Viral load pending, may need ID consult - Continue home biktarvy #Stimulant use disorder, amphetamine type Patient reporting recent return to use. Denies other drug use, but there is prior documentation of fentanyl use. UDS 9/14 presumptively positive for amphetamines, cocaine, and fentanyl, confirmation not ordered. No psychomotor agitation on exam today. - CTM withdrawal symptoms - Patient selected [facility] for rehab, SW placed referral - Diet: NPO Diet - DVT PPX: Lovenox held for possible procedure - Access: L wrist PIV - CODE STATUS: Full Code - Dispo: Pending dental extraction EMERGENCY CONTACT Contact: Extended Emergency Contact Information Primary Emergency Contact: Sarah Simpson Mobile Relation: Mother RIGO Corley Cosigned by Jimmy Rodgers MD at 04/10/2024 4:24 PM CDT * Plan of Care - Bee Paulino RN - 04/07/2024 2:59 PM CDT 04/07/24 1458 Discharge Planning Support System Friends/neighbors Anticipated discharge level of care Substance abuse facility Does the patient need discharge transport arranged? Yes Type of Transportation Medicaid transport Has discharge transport been arranged? No Details of Transportation MTM Discharge Transportation Communication Mode of transport has been discussed with the patient/family. All are agreeable to the plan and understand their responsibilities to ensure the safe transfer. No further CM/SW intervention is anticipated at this time. Post Acute Care Plan Home Care Services N/A OP Services N/A DME N/A Post Acute Care Facility Yes Referral Status Started (SW Following for Inpatient Substance Rehab) CM Progression of Care Update Per Medical Chart/Rounds/IDR: Patient is not medically ready for discharge ADD: 04-10 Discharge Barriers: Patient is homeless and will need assistance with community resources if unableto place at an Inpatient Substance Rehab Education Needs Identified (plan): Pending Tooth Extraction SW Ivana following for Inpatient Substance Rehab. F/U Appointments: Pending Patient's Identified Problem/Goal Problem:?Ensure acute medical needs are met and that patient has a safe discharge plan. Goal:?Secure a discharge plan that patient/family are agreeable with?and ensure patient has continuum of care. Patient and/or family are agreeable with plan. account manager will continue to follow and assist with discharge planning as needed. If any further discharge needs arise, please contact the covering correctional case records supervisor. Bee Paulino RN,BSN,CM * Initial Assessments - Ivana Bowen, DRUG AND ALCOHOL COUNSELOR - 04/07/2024 1:35 PM CDT Social Work Assessment Clinical Dx: Dental abscess Past Medical History: Date of last inpatient admission: Previous admit date: 03/03/2024 Number of inpatient admissions in past year: 11 Reason for Current Hospitalization (Pt/Caregiver Stated): dental abcess (04/07/24 1152) Patient Information: Information Obtained From: Patient (patient and chart review) Marital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 to non adherence to medication. ID also recommending bactrim ppx given low cd4 and hx of non adherence. -outpatient ID follow up on 04/11/2024 -genotype ordered, to be followed outpatient to determine best plan for ART #Hx of syphilis, RPR 1:64 Patient with history of positive RPR and inpatient treatment with penicillin. RPR during this admission 1:64, last RPR titer 02/26/2024 also 1:64. RPR titers have not reduced as expected given treatment, however prior ID documentation stating that this may occur in patient with HIV. ID aware and stating that given the titer has not increased, there is nothing to be done at this time and likely may be due to patient's HIV. -outpatient ID follow up as above #Stimulant use disorder, amphetamine type Patient reporting recent return to use. Denies other drug use, however documentation of prior fentanyl use noted. Patient with psychomotor agitation on exam which may be consistent with methamphetamine withdrawal. UDS presumptive positive for amphetamine, cocaine, and fentanyl, confirmation not ordered. Withdrawal symptoms were monitored. Patient amenable to outpatient rehab. -encouraged outpatient substance use rehab [facility]NER * Plan of Care - Breann Azevedo RN - 04/06/2024 12:03 AM CDT Goals: administer meds as prescribed,monitor labs and vital signs Summary: * Initial Assessments - Jen Duffy RN - 04/05/2024 4:47 PM CDT CM Initial Assessment Interview Note Information Obtained From: Patient (04/05/24 5048) Admission Source: ED Impression: pt with hx of HIV, stimulant use, borderline personality disorder, presents to ED with suicidal ideation. Facial swelling from dental abscess. Plan Includes: IV ABX Primary Source of Transportation: Does the patient need discharge transport arranged?: Yes Has discharge transport been arranged?: No (04/04/242056) Health Insurance Coverage: [place] Medicaid Prescription Coverage: yes Pharmacy: [facility] [place], [place] - [address] [facility] [address] [facility] [address] [facility] [place], [place] - [address] [facility] [address] [facility] [address] [place], [place] [address] [facility] [address] [facility] [address] [facility] [address] [place], [place] - [address] [facility] [facility] [facility] [address] Primary Care Provider: Mady Sullivan MD Prior to Admission: Functional Status: Independent with ADLs Primary Caregiver: Self Support System: Parent, account manager/refuge worker (mother; trimming caser shabbir de la rosa [phone]) Home Care Services: No Outpatient Services: No Durable Medical Equipment: None Living Arrangements: (homeless; lives with friends) Type of Residence: Homeless Medication management: Independent (04/05/241644) SDOH: Transportation: MTM Financial Resource: Housing: Utilities: Social Connections: Food Insecurity: Alcohol Use: PHQ Screening Potential discharge needs include: may need care home assistance, MTM ride OP Services: no Dialysis: no Behavioral Health Services: Anticipated Level of Care: Pt/Family agrees with Anticipated Level of Care: Unknown (04/05/241644) Patient expects to be Discharged to: Jail, (04/05/241644) Additional Information: homeless Patient's Identified Problem/Goal Problem: Ensure acute medical [...] Collaboration with Patient, Provider, Direct Care Nurse, Director Print, and other members of theHealth Care Team to assure needed interventions completed. 2. Return patient to optimal level of self-care post discharge. 3. Equipment Sterilizer will follow for Discharge Planning - interventions as needed 4. Anticipated level of care at discharge 5. Planned Discharge Disposition Jen Duffy RN * Plan of Care - Geovanni Skaggs - 04/05/2024 4:38 PM CDT Goals: Summary: * Medical Student - Munira Laughlin - 04/05/2024 8:52 AM CDT MEDICINE DAILY PROGRESS NOTE Date of Admission: 04/04/2024 Date of Service: 04/05/24 CARE TEAM Patient: Phil Chase Room: [id number] Admitting physician: Con Lewis MD Service: Medical Primary Care Physician: Mady Sullivan MD SUBJECTIVE CHIEF COMPLAINT Chief Complaint Patient presents with Suicidal Ideation BRIEF HPI Phil Chase is a 28 y.o. male with a hx of HIV (CD4 230 03/18/24, viral load undetectable 02/26/24), stimulant use disorder (amphetamine type), borderline personality disorder, PTSD, and unspecified mood disorder who presented to the ED 04/04/2024 for suicidal ideation and facial swelling, foundto have a premolar dental abscess with overlying facial cellulitis. 24-HOUR INTERVAL HISTORY - ENT performed I&D yesterday - Initiated on ampicillin-sulbactam in the ED - Transferred to the floor 04/04 - RANDYEO - Says his mouth/face feel significantly improved today - Continues to endorse active SI but less pervasive than when he presented to the ED SUBJECTIVE Negative except for noted above ALLERGIES No Known Allergies CURRENT MEDICATIONS Scheduled Medications: ampicillin-sulbactam, 3 g, intravenous, Q6H KIMBERLEY ARIPiprazole, 10 mg, oral, Daily cftkataxzfd-hihuycqlybjks-hxapomdoj, 1 tablet, oral, Daily doxepin, 25 mg, oral, Nightly DULoxetine DR, 60 mg, oral, Daily enoxaparin, 40 mg, subcutaneous, Daily-2100 sodium chloride 0.9%, 0.5-20 mL, intra-catheter, Q8H KIMBERLEY PRN Medications: acetaminophen, 650 mg OR HYDROcodone-acetaminophen, 1 tablet sodium chloride 0.9%, 30 mL hydrOXYzine, 50 mg ondansetron ODT, 4 mg OR ondansetron, 4 mg ramelteon, 8 mg sodium chloride 0.9%, 0.5-20 mL OBJECTIVE ROS Review of systems per HPI and otherwise all other systems are negative VITALS / I&Os 24hr Min/Max: Temp Min: 36.7 ??C (98.1 ??F) Max: 38.6 ??C (101.5 ??F) Pulse Min: 28 Max: 110 BP Min: 120/68 Max: 154/78 Resp Min: 16 Max: 18 SpO2 Min: 75 % Max: 100 % Most Recent: Vitals: 04/05/24 0415 BP: 123/70 Pulse: 68 Resp: 18 Temp: 36.7 ??C (98.1 ??F) SpO2: 98% Intake/Output Summary (Last 24 hours) at 04/05/2024 0852 Last data filed at 04/05/2024 0524 Gross per 24 hour Intake 1120 ml Output -- Net 1120 ml PHYSICAL EXAM Constitutional: Well-developed, well-nourished, and in no distress. HEENT: Moist MM. Normal conjunctiva, no scleral icterus. Cardiovascular: Normal rate, regular rhythm, S1/S2 normal. No murmurs or extra heart sounds. Pulmonary/Chest: Normal respiratory effort and breath sounds. No wheezes or rales. Abdominal: Soft, non-tender, non-distended. No guarding or rebound present. Neurological: AAO to person, place, and time; moving all extremities spontaneously. Skin: Skin is warm and dry. Psychiatric: Continues to endorse active SI, but notably less intense than when he presented to theED yesterday. LABS CBC Recent Labs Lab Units 04/04/24 0939 WBC K/cumm 5.2 HEMOGLOBIN g/dL 14.3 HEMATOCRIT % 44.5 PLATELETS K/cumm 257 NEUTROS PCT % 63.4 LYMPHS PCT % 25.1 MONOS PCT % 10.3 EOS PCT % 0.4 Chem Recent Labs Lab Units 04/04/24 0939 SODIUM mmol/L 141 POTASSIUM PLASMA mmol/L 4.5 CHLORIDE mmol/L 104 CO2 mmol/L 27 ANIONGAP mmol/L 10 BUN SERUM mg/dL 15 CREATININE mg/dL 0.98 GLUCOSE mg/dL 84 CALCIUM mg/dL 9.4 LFTs Recent Labs Lab Units 04/04/24 0939 ALK PHOS Units/L 87 BILIRUBIN TOTAL mg/dL 0.8 TOTAL PROTEIN g/dL 9.3* ALT Units/L 29 AST Units/L [address] Facial Bones W Contrast Result Date: 04/04/2024 Right 1st premolar dental abscess with marked overlying facial cellulitis but no apparent signs of underlying osteomyelitis. Electronically signed by: Domenic Crawford MD ASSESSMENT & PLAN Phil Chase is a 28 y.o. male with a hx of HIV (CD4 230 03/18/24, viral load undetectable 02/26/24), stimulant use disorder (amphetamine type), borderline personality disorder, PTSD, and unspecified mood disorder who presented to the ED wth suicidal ideation and facial swelling, found to have a premolar dental abscess with overlying facial cellulitis s/p I&D in the ED. #Mandibular Abscess s/p I&D Patient presented with right facial swelling and pain, with CT confirming a mandibular abscess withoverlying cellulitis without evidence of osteomyelitis. Started on amp/sulbactam in the ED. Seen byENT in the ED, now s/p I&D of abscess. Abx course: (amp/sulbactam 04/04-) - Continue amp/sulbactam - ENT following, appreciate recs - Plan for OMFS consult on 04/07 #Suicidal Ideation #Unspecified Mood Disorder #Borderline personality disorder Patient has a history of multiple psychiatric hospitalizations (most recently discharged 03/03/24), including some for suicidal ideation/attempts. Patient continues to endorse active SI as of this morning. - Seen by psychiatry, recommend: - Continue abilify 10mg, doxepin 25mg, and cymbalta 60mg - Can remove sitter as not at risk for harm to self #HIV Patient diagnosed in 2018. Previously compliant with biktarvy, but reports he did not take the 5 days prior to admission. Re-started 04/04. Last CD4 03/18/2024 was 230 (17%) and viral load 02/26/2024 undectable. - Repeat CD4 and viral load ordered - Continue home shilpa #Stimulant use disorder, amphetamine type Patient reporting recent return to use. Denies other drug use, but there is prior documentation of fentanyl use. No psychomotor agitation on exam today. - UDS pending - CTM withdrawal symptoms - Diet: Adult Diet Restricted; Mechanical Soft - DVT PPX: SubQ lovenox - Access: R arm PIV - CODE STATUS: Full Code - Dispo: Pending consults from psychiatry and OMFS EMERGENCY CONTACT Contact: Extended Emergency Contact Information Primary Emergency Contact: Sarah Simpson Mobile Relation: Mother Secondary Emergency Contact: Shabbir De La Rosa Relation: Tester Armature Or Fields Munira Laughlin, MS3 Cosigned by Con Lewis MD at 04/06/2024 6:48 PM CDT Associated attestation - Con Lewis MD - 04/06/2024 6:48 PM CDT Medical student note, for training purposes. * ED Re-evaluation Note - Sarah Mar MD - 04/04/2024 2:01 PM CDT ED Re-evaluation TRANSITION OF CARE: I, Sarah Mar MD, am taking signout and assuming care for this patient. I have reviewed all pertinent vital signs, allergies, and history available in the chart. A brief summary of the patient's relevant Hx, presentation, and pertinent findings can be seen below in ED Course. ED Course as of 04/04/24 1500 Time: 04/04 935 Comment: Per Dr. Montano, patient PMHx methamphetamine use disorder presents with suicidal ideation, possible dental abscess, facial swelling for CT imaging, Unasyn, olanzipine PO. Plan to kill himselfwith a firearm. Patient also HIV, last CD4 230, possible subsequent admission after ENT, sobriety, then possible psychiatric consultation. By: Nadeem Locke MD Time: 04/04 0942 Comment: I introduced myself to patient shared transition of care information from Dr. Montano. He does have right facial swelling and has a significantly carious tooth number 27, eroded down to the gumline. He is hyperactive in the room but feels that he can lie still enough for a CT. Plan is CT imaging with contrast to define whether there is a space-occupying fluid collection that can be drainedaffectively by Ear Nose and Throat. He was already received intravenous antibiotics and will receive an ongoing course of antibiotics for facial infection. In that he is immunocompromised from his HIV disease, we anticipate admission to medicine service with a psychiatric consultation. By: Nadeem Locke MD Time: 04/04 1227 Value: CT Facial Bones W Contrast Comment: Right 1st premolar dental abscess with marked overlying facial cellulitis but no apparent signs of underlying osteomyelitis. By: Jordin Naidu Jr., MD Time: 04/04 1251 Comment: ENT c/s placed By: Jordin Naidu Jr., MD Time: 04/04 1302 Comment: Spoke with ENT, will evaluate patient By: Jordin Naidu Jr., MD Time: 04/04 1458 Comment: Taking signout on this 28 yo M. HIV, CD4 in the 200s. Here with SI (+ plan; firearm). Unasyn given. ENT saw patient. Admission to Medicine for IV ABX. By: Sarah Mar MD Time: 04/04 1459 Comment: Attending signout: Pending admit to medicine, ENT drained oral abscess, needs psych eval also By: Vanessa Julian MD Final diagnoses: Dental abscess Suicidal ideation Methamphetamine use ([facility]) ([facility]) HIV infection, unspecified symptom status ([facility]) Sarah aMr MD Resident 04/05/24 0138 documented in this encounter Plan of Treatment Pending Results Name Type Priority Associated Diagnoses Date /Time RPR Blood Microbiology Routine 04/08/2024 1 2:28 AM CDT Scheduled Orders Name Type Priority Associated Diagnoses Orde r Schedule RPR Microbiology Routine Once for 1 O ccurrences starting 04/08/2024 until 04/08/2024 Scheduled Referrals Name Type Priority Associated Diagnoses Order Schedule Ambulatory referral to Infectious Disease Outpatient Referral Routine HIV disease ([facility]) ([facility]) Syphilis Expected: 04/23/2024 (Approximate), Expires: 04/09/2025 documented as of this encounter Procedures Procedure Name Priority Date/Time Associated Diagnosis Comments INFECTION PREVENTION DELROY AURIS PCR, SURVEILLANCE Routine 04/10/2024 1:44 PM CDT EGFR Routine 04/09/2024 10:22 PM CDT DIFFERENTIAL AUTO Routine 04/09/2024 10: 22 PM CDT CBC WITH AUTO DIFFERENTIAL Routine 04/09/2024 10:22 PM CDT BASIC METABOLIC PANEL Routine 04/09/2024 10:22 PM CDT N. GONORRHOEAE/C. TRACHOMATIS AMPLIFICATION Routine 04/08/2024 8:47 PM CDT N. GONORRHOEAE/C. TRACHOMATIS AMPLIFICATION Routine 04/08/2024 8:47 PM CDT N. GONORRHOEAE/C. TRACHOMATIS AMPLIFICATION Routine 04/08/2024 8:47 PM CDT EGFR Routine 04/08/2024 8:47 PM CDT DIFFERENTIAL AUTO Routine 04/08/2024 8:4 7 PM CDT CBC WITH AUTO DIFFERENTIAL Routine 04/08/2024 8:47 PM CDT HEPATITIS C ANTIBODY Routine 04/08/2024 8:47 PM CDT HEPATITIS B SURFACE ANTIBODY (IMMUNE STATUS) Routine 04/08/2024 8:47 PM CDT HEPATITIS B SURFACE ANTIGEN Routine 04/08/2024 8:47 PM CDT BASIC METABOLIC PANEL Routine 04/08/2024 8:47 PM CDT HIV-1 GENOTYPIC DRUG RESISTANCE Routine 04/08/2024 12:28 AM CDT EGFR Routine 04/08/2024 12:28 AM CDT DIFFERENTIAL AUTO Routine 04/08/2024 12: 28 AM CDT RPR TITER Routine 04/08/2024 12:28 AM CDT CBC WITH AUTO DIFFERENTIAL Routine 04/08/2024 12:28 AM CDT HIV-1 RNA, QUANTITATIVE, PCR Routine 04/08/2024 12:28 AM CDT RPR Routine 04/08/2024 12:28 AM CDT APTT Routine 04/08/2024 12:28 AM CDT PROTIME-INR Routine 04/08/2024 12:28 AM CDT TYPE AND SCREEN Timed 04/08/2024 12:28 AM CDT BASIC METABOLIC PANEL Routine 04/08/2024 12:28 AM CDT INFECTION PREVENTION DELROY AURIS PCR, SURVEILLANCE Routine 04/07/2024 4:54 PM CDT EGFR Routine 04/06/2024 10:43 PM CDT DIFFERENTIAL AUTO Routine 04/06/2024 10: 43 PM CDT CBC WITH AUTO DIFFERENTIAL Routine 04/06/2024 10:43 PM CDT BASIC METABOLIC PANEL Routine 04/06/2024 10:43 PM CDT EGFR Routine 04/05/2024 10:15 PM CDT CBC WITH AUTO DIFFERENTIAL Routine 04/05/2024 10:15 PM CDT MANUAL DIFFERENTIAL Routine 04/05/2024 1 0:15 PM CDT BASIC METABOLIC PANEL Routine 04/05/2024 10:15 PM CDT URINALYSIS AND REFLEX TO MICROSCOPIC AND CULTURE STAT 04/05/2024 11:53 AM CDT DRUGS OF ABUSE SCREEN, URINE WITHOUT CONFIRMATION STAT 04/05/2024 11:53 AM CDT URINALYSIS, MICROSCOPIC ONLY STAT 04/05/2024 11:53 AM CDT T-HELPER CELLS (CD4) COUNT Routine 04/04/2024 11:[address] FACIAL BONES W CONTRAST ED 04/04/2024 11:23 AM CDT EGFR STAT 04/04/2024 9:39 AM CDT DIFFERENTIAL AUTO STAT 04/04/2024 9:3 9 AM CDT THYROID FUNCTION CASCADE STAT 04/04/2024 9:39 AM CDT CBC WITH AUTO DIFFERENTIAL STAT 04/04/2024 9:39 AM CDT COMPREHENSIVE METABOLIC PANEL STAT 04/04/2024 9:39 AM CDT documented in this encounter Results * Infection Prevention Delroy auris PCR, surveillance Axilla/Groin (04/10/2024 1:44 PM CDT) Delroy auris DNA Not Detected Not Detected [facility] Comment: Interpretive Data Testing performed by [facility] using the Diasorin Liaison MDX Delroy auris assay. ??This assay detects DNA from Delroy auris using Real-Time PCR. ??This assay is laboratory developed and is not cleared by the [place] Food and Drug Administration. ??The performance characteristics have been verified by the [facility]. Interpretive data was last reviewed on 11/14/2023 Axilla/Groin 04/10/2024 1:44 PM CDT 04/10/2024 1:59 PM CDT us Dallas Castellanos MD LAB MICROBIOLOGY - GENERAL OR DERABLES Final Result Performing Organization Address City/[facility] Co de Phone Number [facility] Department [place] [address] BJ * eGFR (04/09/2024 10:22 PM CDT) eGFR >90 >=60 mL/min/1. 73 [...] interpretive data was last reviewed 2021. Blood 04/09/2024 10:2 2 PM CDT 04/09/2024 10:53 PM CDT us Con Lewis MD LAB BLOOD ORDERABLES Fi nal Result Performing Organization Address City/[facility]/ZIP Co de Phone Number [facility] Department [place] [address] * (ABNORMAL) Differential, auto (04/09/2024 10:22 PM CDT) Neutrophil abs 1.0(L) 1.5 - 6.5 K/cumm Imm gran abs 0.0 0.0 - 0.1 K/cumm [facility] Lymphocyte abs 1.4 0.8 - 3.3 K/cumm [facility] Monocyte abs 0.3 0.2 - 0.8 K/cumm [facility] Eosinophil abs 0.1 0.0 - 0.5 K/cumm [facility] Basophil abs 0.0 0.0 - 0.1 K/cumm [facility] Neutrophil pct 35.4 % [facility] Comment: Interpretive Data Percent cell count reference ranges are not reported, since discordance with absolute values may lead to misinterpretation of CBC data. Current Interpretive Data was last revised on 2017. Imm gran pct 0.0 % [facility] Comment: Interpretive Data Percent cell count reference ranges are not reported, since discordance with absolute values may lead to misinterpretation of CBC data. Current Interpretive Data was last revised on 2017. Lymphocyte pct 50.0 % [facility] Comment: Interpretive Data Percent cell count reference ranges are not reported, since discordance with absolute values may lead to misinterpretation of CBC data. Current Interpretive Data was last revised on 2017. Monocyte pct 8.9 % [facility] Comment: Interpretive Data Percent cell count reference ranges are not reported, since discordance with absolute values may lead to misinterpretation of CBC data. Current Interpretive Data was last revised on 2017. Eosinophil pct 5.0 % [facility] Comment: Interpretive Data Percent cell count reference ranges are not reported, since discordance with absolute values may lead to misinterpretation of CBC data. Current Interpretive Data was last revised on 2017. Basophil pct 0.7 % [facility] Comment: Interpretive Data Percent cell count reference ranges are not reported, since discordance with absolute values may lead to misinterpretation of CBC data. Current Interpretive Data was last revised on 2017. Blood 04/09/2024 10:2 2 PM CDT 04/09/2024 10:53 PM CDT Con Lewis MD LAB BLOOD ORDERABLES Fi nal Result Performing Organization Address City/[facility]/ZIP Co de Phone Number [facility] Department [place] [address] * Basic metabolic panel (04/09/2024 10:22 PM CDT) [facility] Sodium 138 135 - 145 mmol/L Potassium, pl 4.2 3.3 - 4.9 mmol/L [facility] Chloride 103 97 - 110 mmol/L [facility] CO2 27 22 - 32 mmol/L [facility] Anion gap 8 2 - 15 mmol/L [facility] BUN 13 6 - 25 mg/dL [facility] Creatinine 1.06 0.80 - 1.30 mg/dL [facility] Glucose 110 70 - 199 mg/dL [facility] Comment: Interpretive Data Fasting glucose [...] interpretive data was last revised 2022. Calcium 9.0 8.5 - 10.3 mg/dL [facility] Blood 04/09/2024 10:2 2 PM CDT 04/09/2024 10:53 PM CDT us Con Lewis MD LAB BLOOD ORDERABLES Fi nal Result Performing Organization Address [facility] Co de Phone Number [facility] Department [place] [address] * (ABNORMAL) CBC with auto differential (04/09/2024 10:22 PM CDT) [facility] WBC 2.8(L) 3.8 - 9.9 K/cumm Hgb 13.5 13.0 - 17.5 g/dL [facility] Hct 42.6 38.9 - 50.3 % [facility] Plt 283 150 - 400 K/cumm [facility] MPV 9.8 9.1 - 12.3 fL [facility] RBC 5.20 4.30 - 5.80 M/cumm [facility] MCV 81.9 81.3 - 96.4 fL [facility] MCH 26.0(L) 27.1 - 33.3 pg [facility] MCHC 31.7(L) 32.3 - 35.7 g/dL [facility] RDW CV 14.4 11.1 - 14.9 % [facility] RDW SD 42.8 35.7 - 48.1 fL [facility] NRBC abs 0.00 0.00 - 0.01 K/cumm [facility] Blood 04/09/2024 10:2 2 PM CDT 04/09/2024 10:53 PM CDT us Con Lewis MD LAB BLOOD ORDERABLES nal Result [facility] Department [place] [address] * eGFR (04/08/2024 8:47 PM CDT) [facility] eGFR >90 >=60 mL/min/1. 73 [...] interpretive data was last reviewed 2021. Blood 04/08/2024 8:47 PM CDT 04/08/2024 9:12 PM CDT us Con Lewis MD LAB BLOOD ORDERABLES nal Result [facility] Department [place] [address] * (ABNORMAL) Differential, auto (04/08/2024 8:47 PM CDT) Neutrophil abs 1.0(L) 1.5 - 6.5 K/cumm Imm gran abs 0.0 0.0 - 0.1 K/cumm [facility] Lymphocyte abs 1.5 0.8 - 3.3 K/cumm [facility] Monocyte abs 0.3 0.2 - 0.8 K/cumm [facility] Eosinophil abs 0.2 0.0 - 0.5 K/cumm [facility] Basophil abs 0.0 0.0 - 0.1 K/cumm [facility] Neutrophil pct 34.7 % [facility] Comment: Interpretive Data Percent cell count reference ranges are not reported, since discordance with absolute values may lead to misinterpretation of CBC data. Current Interpretive Data was last revised on 2017. Imm gran pct 0.3 % [facility] Comment: Interpretive Data Percent cell count reference ranges are not reported, since discordance with absolute values may lead to misinterpretation of CBC data. Current Interpretive Data was last revised on 2017. Lymphocyte pct 49.2 % [facility] Comment: Interpretive Data Percent cell count reference ranges are not reported, since discordance with absolute values may lead to misinterpretation of CBC data. Current Interpretive Data was last revised on 2017. Monocyte pct 9.4 % [facility] Comment: Interpretive Data Percent cell count reference ranges are not reported, since discordance with absolute values may lead to misinterpretation of CBC data. Current Interpretive Data was last revised on 2017. Eosinophil pct 5.7 % [facility] Comment: Interpretive Data Percent cell count reference ranges are not reported, since discordance with absolute values may lead to misinterpretation of CBC data. Current Interpretive Data was last revised on 2017. Basophil pct 0.7 % [facility] Comment: Interpretive Data Percent cell count reference ranges are not reported, since discordance with absolute values may lead to misinterpretation of CBC data. Current Interpretive Data was last revised on 2017. Blood 04/08/2024 8:47 PM CDT 04/08/2024 9:12 PM CDT us Con Lewis MD LAB BLOOD ORDERABLES Fi nal Result Performing Organization Address City/[facility]/ZIP Co de Phone Number [facility] Department [place] [address] * Hepatitis C antibody Blood (04/08/2024 8:47 PM CDT) Hep C Ab Nonreactive Nonreactive Comment:Antibodies to HCV no t detected. Does NOT exclude the possibility of recent exposure to HCV. Current interpretive data was last revised on 22 Blood 04/08/2024 8:47 PM CDT 04/08/2024 9:04 PM CDT us Jimmy Rodgers MD LAB MICROBIOLOGY - GENE RAL ORDERABLES Final Result [facility] [place] [address] * Hepatitis B surface antibody (immune status) Blood (04/08/2024 8:47 PM CDT) [facility] HBsAb (immune status) Nonreactive Comment:This result is consi stent with a lack of immunity to Hepatitis B Virus when used in the setting of routine screening. Current interpretative data was last revised on 22 Blood 04/08/2024 8:47 PM CDT 04/08/2024 9:04 PM CDT Jimmy Rodgers MD LAB MICROBIOLOGY - GENE RAL ORDERABLES Final Result Performing Organization Address City/[facility]/ZIP Co de Phone Number [facility] [place] [address] * Hepatitis B Surface Antigen Blood (04/08/2024 8:47 PM CDT) [facility] HepBsAg Nonreactive Nonreactive Blood 04/08/2024 8:47 PM CDT 04/08/2024 9:04 PM CDT Jimmy Rodgers MD LAB MICROBIOLOGY - GENE RAL ORDERABLES Final Result [facility] Department [place] [address] * N. gonorrhoeae/C. trachomatis Amplification Urine (04/08/2024 8:47 PM CDT) [facility] C. trachomatis Not Detected Not Detected [facility] N. gonorrhoeae Not Detected Not Detected [facility] Comment: Interpretive Data This assay detects Chlamydia trachomatis and Neisseria gonorrhoeae by nucleic acid amplification testing (NAAT). This assay has been cleared by the [place] Food and Drug administration. The performance characteristics of this test have been verified by the [facility] Molecular Infectious Disease laboratory. The performance characteristics of this test have not been evaluated in individuals less than 14 years of age. Current Interpretive Data last revised 2023. Urine (None) 04/08/2024 8:47 PM CDT 04/08/2024 9:08 PM CDT Jimmy Rodgers MD LAB MICROBIOLOGY - GENE RAL ORDERABLES Final Result Performing Organization Address City/[facility] de Phone Number [facility] [place] [address] [facility] * N. gonorrhoeae/C. trachomatis Amplification Throat (04/08/2024 8:47 PM CDT) Pathologist [facility] C. trachomatis Not Detected Not Detected [facility] N. gonorrhoeae Not Detected Not Detected [facility] Comment: Interpretive Data This assay detects Chlamydia trachomatis and Neisseria gonorrhoeae by nucleic acid amplification testing (NAAT). This assay has been cleared by the [place] Food and Drug administration. The performance characteristics of this test have been verified by the [facility] Molecular Infectious Disease laboratory. The performance characteristics of this test have not been evaluated in individuals less than 14 years of age. Current Interpretive Data last revised 2023. Throat (None) 04/08/2024 8:4 7 PM CDT 04/08/2024 9:09 PM CDT Jimmy Rodgers MD LAB MICROBIOLOGY - GENE RAL ORDERABLES Final Result Performing Organization Address [facility] de Phone Number [facility] [place] [address] [facility] * N. gonorrhoeae/C. trachomatis Amplification Rectal swab (04/08/2024 8:47 PM CDT) Pathologist [facility] C. trachomatis Not Detected Not Detected [facility] N. gonorrhoeae Not Detected Not Detected [facility] Comment: Interpretive Data This assay detects Chlamydia trachomatis and Neisseria gonorrhoeae by nucleic acid amplification testing (NAAT). This assay has been cleared by the [place] Food and Drug administration. The performance characteristics of this test have been verified by the [facility] Molecular Infectious Disease laboratory. The performance characteristics of this test have not been evaluated in individuals less than 14 years of age. Current Interpretive Data last revised 2023. Rectal swab (None) 04/08/2024 8:47 PM CDT 04/08/2024 9:09 PM CDT us Jimmy Rodgers MD LAB MICROBIOLOGY - GENE [facility] ORDERABLES Final Result [facility] Department [place] [address] [facility] * Basic metabolic panel (04/08/2024 8:47 PM CDT) Pathologist [facility] Sodium 138 135 - 145 mmol/L Potassium, pl 4.3 3.3 - 4.9 mmol/L [facility] Chloride 103 97 - 110 mmol/L [facility] CO2 28 22 - 32 mmol/L [facility] Anion gap 7 2 - 15 mmol/L [facility] BUN 15 6 - 25 mg/dL [facility] Creatinine 0.99 0.80 - 1.30 mg/dL [facility] Glucose 81 70 - 199 mg/dL [facility] Comment: Interpretive Data Fasting glucose [...] 2022. Calcium 8.9 8.5 - 10.3 mg/dL [facility] Blood 04/08/2024 8:47 PM CDT 04/08/2024 9:12 PM CDT us Con Lewis MD LAB BLOOD ORDERABLES Fi nal Result Performing Organization Address [facility] de Phone Number [facility] Department [place] [address] * (ABNORMAL) CBC with auto differential (04/08/2024 8:47 PM CDT) [facility] WBC 3.0(L) 3.8 - 9.9 K/cumm Hgb 13.3 13.0 - 17.5 g/dL [facility] Hct 42.3 38.9 - 50.3 % [facility] Plt 282 150 - 400 K/cumm [facility] MPV 10.0 9.1 - 12.3 fL [facility] RBC 5.10 4.30 - 5.80 M/cumm [facility] MCV 82.9 81.3 - 96.4 fL [facility] MCH 26.1(L) 27.1 - 33.3 pg [facility] MCHC 31.4(L) 32.3 - 35.7 g/dL [facility] RDW CV 14.5 11.1 - 14.9 % [facility] RDW SD 43.8 35.7 - 48.1 fL [facility] NRBC abs 0.00 0.00 - 0.01 K/cumm [facility] Blood 04/08/2024 8:47 PM CDT 04/08/2024 9:12 PM CDT Con Lewis MD LAB BLOOD ORDERABLES Fi nal Result Performing Organization Address [facility] Co de Phone Number [facility] Department [place] [address] * HIV-1 Genotypic Drug Resistance Blood (04/08/2024 12:28 AM CDT) [facility] HIV-1, genotypic drug resistance [facility] Comment: Interpretation of results: ?? SUSC= Susceptible PLR= Potential low-level resistance LR= Low-level resistance IR= Intermediate resistance HR= High-level resistance HIV-1 group M subtype B [facility] Nucleos(t)onofre RT mutations L210W,T215S [facility] Reverse Transcriptase failed codons None [facility] Abacavir [facility] Didanosine LR [facility] Emtricitabine SUSC [facility] Lamivudine SUSC [facility] Stavudine IR [facility] Tenofovir SUSC [facility] Zidovudine IR [facility] Nonnucleoside RT mutations None [facility] Doravirine SUSC [facility] Efavirenz SUSC [facility] Etravirine SUSC [facility] Nevirapine SUSC [facility] Rilpivirine SUSC [facility] Protease Mutations None [facility] Protease failed codons None [facility] Atazanavir w/ Ritonavir S[facility] Darunavir w/ Ritonavir SUSC [facility] Fosamprenavir w/ Ritonavir SUSC [facility] Indinavir w/ Ritonavir SUSC [facility] Lopinavir w/ Ritonavir SUSC [facility] Nelfinavir SUSC [facility] Saquinavir w/ Ritonavir SUSC [facility] Tipranavir w/ Ritonavir SUSC [facility] Integrase Mutations None [facility] Integrase failed codons None [facility] Bictegravir SUSC [facility] Cabotegravir SUSC [facility] Dolutegravir SUSC [facility] Elvitegravir SUSC [facility] Raltegravir SUSC [facility] Prior documented HIV RNA copies/mL See Footnote [facility] Comment: RESULT: 1000 to 1,000,000 ADDITIONAL INFORMATION Testing was performed using the FDA-approved, targeted next-generation sequencing-based [employer] SQ HIV-1 Genotyping Assay ([employer], [facility]), with the minimum variant detection frequency set at 5%. Actual ability to detect minor variants depends on viral load in the plasma specimen. Resistance interpretation was generated with the most current version of the [facility] HIV Drug Resistance Database (https://hivdb.[place].edu/page/algorithm-updates/). Results obtained by different sequencing assay methods should not be used interchangeably. Test Performed by: [facility] [place] [address] [id number] Military Technician: Asim Shukla Ph.D.; CLIA# [id number] Blood 04/08/2024 12:2 8 AM CDT 04/08/2024 8:50 PM CDT Jimmy Rodgers MD LAB MICROBIOLOGY - GENE RAL ORDERABLES Final Result Performing Organization Address City/[facility] Co de Phone Number [facility] [employer] [place] [address] * (ABNORMAL) RPR Titer Blood (04/08/2024 12:28 AM CDT) [facility] RPR qn 1:64(A) Nonreactive Blood 04/08/2024 12:2 8 AM CDT 04/08/2024 12:45 AM CDT Jimmy Rodgers MD LAB MICROBIOLOGY - GENE RAL ORDERABLES Final Result Performing Organization Address [facility] de Phone Number [facility] Department of [employer] [place] [address] * (ABNORMAL) RPR Blood (04/08/2024 12:28 AM CDT) [facility] RPR Reactive(A ) Nonreactive Blood 04/08/2024 12:2 8 AM CDT 04/08/2024 12:45 AM CDT Jimmy Rodgers MD LAB MICROBIOLOGY - GENE RAL ORDERABLES Final Result Performing Organization Address City/[facility] Co de Phone Number [facility] [employer] [address] * eGFR (04/08/2024 12:28 AM CDT) [facility] eGFR >90 >=60 mL/min/1. 73 [...] interpretive data was last reviewed 2021. Blood 04/08/2024 12:2 8 AM CDT 04/08/2024 12:42 AM CDT us Con Lewis MD LAB BLOOD ORDERABLES Fi nal Result [facility] Department [place] [address] * (ABNORMAL) Differential, auto (04/08/2024 12:28 AM CDT) Neutrophil abs 0.7(L) 1.5 - 6.5 K/cumm Imm gran abs 0.0 0.0 - 0.1 K/cumm [facility] Lymphocyte abs 1.4 0.8 - 3.3 K/cumm [facility] Monocyte abs 0.2 0.2 - 0.8 K/cumm [facility] Eosinophil abs 0.2 0.0 - 0.5 K/cumm [facility] Basophil abs 0.0 0.0 - 0.1 K/cumm [facility] Neutrophil pct 28.8 % [facility] Comment: Interpretive Data Percent cell count reference ranges are not reported, since discordance with absolute values may lead to misinterpretation of CBC data. Current Interpretive Data was last revised on 2017. Imm gran pct 0.4 % [facility] Comment: Interpretive Data Percent cell count reference ranges are not reported, since discordance with absolute values may lead to misinterpretation of CBC data. Current Interpretive Data was last revised on 2017. Lymphocyte pct 56.3 % [facility] Comment: Interpretive Data Percent cell count reference ranges are not reported, since discordance with absolute values may lead to misinterpretation of CBC data. Current Interpretive Data was last revised on 2017. Monocyte pct 5.9 % [facility] Comment: Interpretive Data Percent cell count reference ranges are not reported, since discordance with absolute values may lead to misinterpretation of CBC data. Current Interpretive Data was last revised on 2017. Eosinophil pct 7.8 % [facility] Comment: Interpretive Data Percent cell count reference ranges are not reported, since discordance with absolute values may lead to misinterpretation of CBC data. Current Interpretive Data was last revised on 2017. Basophil pct 0.8 % [facility] Comment: Interpretive Data Percent cell count reference ranges are not reported, since discordance with absolute values may lead to misinterpretation of CBC data. Current Interpretive Data was last revised on 2017. Blood 04/08/2024 12:2 8 AM CDT 04/08/2024 12:42 AM CDT us Con Lewis MD LAB BLOOD ORDERABLES Fi nal Result [facility] Department [place] [address] * (ABNORMAL) HIV-1 RNA PCR, quantitative Blood (04/08/2024 12:28 AM CDT) [facility] HIV-1 RNA Detected( A) [facility] Comment: The quantifiable range of this assay is 20 copies/mL to 10,000,000 copies/mL (1.30 log copies/mL to 7.00 log copies/mL). ??Testing was performed by the NEERU 6800 HIV-1 Test([employer] Testing performed at [facility] Current Interpretive Data was last revised on 2021. HIV-1 RNA, copies/mL 4,280 copies/mL [facility] HIV-1 RNA, log 3.63 log cps/mL [facility] Blood 04/08/2024 12:2 8 AM CDT 04/08/2024 12:52 AM CDT Jimmy Rodgers MD LAB MICROBIOLOGY - GENE RAL ORDERABLES Final Result Performing Organization Address [facility] Co de Phone Number [facility] Department [place] [address] [facility] * aPTT (04/08/2024 12:28 AM CDT) [facility] aPTT 31 28 - 38 sec Comment: Interpretive Data Heparin therapeutic range: 66.0 - 100.0 seconds. Range based on correlation with therapeutic heparin activity range of 0.3 - 0.7 Units/mL. Current interpretive data was last revised on 2023. Blood 04/08/2024 12:2 8 AM CDT 04/08/2024 12:54 AM CDT us Jimmy Rodgers MD LAB BLOOD ORDERABLES Fi nal Result Performing Organization Address City/[facility]/ZIP Co de Phone Number [facility] Department [place] [address] * Protime-INR (04/08/2024 12:28 AM CDT) [facility] PT 11.4 9.7 - 13.0 sec INR 1.05 0.90 - 1.20 [facility] Comment: Interpretive data Oral anticoagulant therapeutic ranges: Venous thromboembolism prophylaxis or treatment: 2.0-3.0 CARDIOLOGY Standard range: 2.0-3.0 High-intensity range: 2.5-3.5 Refer to indication-specific guidelines for appropriate target ranges for prosthetic heart valve replacement. Current interpretive data was last revised on 2019. Blood 04/08/2024 12:2 8 AM CDT 04/08/2024 12:54 AM CDT Jimmy Rodgers MD LAB BLOOD ORDERABLES Fi nal Result Performing Organization Address [facility] Co de Phone Number [facility] Department [place] [address] * Type and screen (04/08/2024 12:28 AM CDT) Pathologist [facility] [place], indirect Negative ABO Rh A Positive [facility] Blood 04/08/2024 12:2 8 AM CDT 04/08/2024 12:49 AM CDT Narrative [facility] - 04/08/2024 1:41 AM CDT Has the patient had Daratumumab or Isatuximab in the past 6 months?->Unknown Jimmy Rodgers MD LAB BLOOD BANK TEST ORD ERABLES Final Result Performing Organization Address [facility] Co de Phone Number [facility] Department [place] [address] * Basic metabolic panel (04/08/2024 12:28 AM CDT) Sodium 139 135 - 145 mmol/L Potassium, pl 4.3 3.3 - 4.9 mmol/L [facility] Chloride 104 97 - 110 mmol/L [facility] CO2 29 22 - 32 mmol/L [facility] Anion gap 6 2 - 15 mmol/L [facility] BUN 13 6 - 25 mg/dL [facility] Creatinine 0.91 0.80 - 1.30 mg/dL [facility] Glucose 93 70 - 199 mg/dL [facility] Comment: Interpretive Data Fasting glucose [...] 2022. Calcium 8.7 8.5 - 10.3 mg/dL [facility] Blood 04/08/2024 12:2 8 AM CDT 04/08/2024 12:42 AM CDT Con Lewis MD LAB BLOOD ORDERABLES Fi nal Result [facility] Department [place] [address] * (ABNORMAL) CBC with auto differential (04/08/2024 12:28 AM CDT) WBC 2.6(L) 3.8 - 9.9 K/cumm Hgb 13.1 13.0 - 17.5 g/dL [facility] Hct 41.4 38.9 - 50.3 % [facility] Plt 254 150 - 400 K/cumm [facility] MPV 10.0 9.1 - 12.3 fL [facility] RBC 5.07 4.30 - 5.80 M/cumm [facility] MCV 81.7 81.3 - 96.4 fL [facility] MCH 25.8(L) 27.1 - 33.3 pg [facility] MCHC 31.6(L) 32.3 - 35.7 g/dL [facility] RDW CV 14.4 11.1 - 14.9 % [facility] RDW SD 42.9 35.7 - 48.1 fL [facility] NRBC abs 0.00 0.00 - 0.01 K/cumm [facility] Blood 04/08/2024 12:2 8 AM CDT 04/08/2024 12:42 AM CDT Con Lewis MD LAB BLOOD ORDERABLES Fi nal Result Performing Organization Address [facility] Co de Phone Number [facility] [employer] [place] [address] * Infection Prevention Delroy auris PCR, surveillance Axilla/Groin (04/07/2024 4:54 PM CDT) [facility] Delroy auris DNA Not Detected Not Detected [facility] Comment: Interpretive Data Testing performed by [facility] Infectious Disease Laboratory using the [employer] MDX Delroy auris assay. ??This assay detects DNA from Delroy auris using Real-Time PCR. ??This assay is laboratory developed and is not cleared by the [facility] Food and Drug Administration. ??The performance characteristics have been verified by the [facility] Infectious Disease Laboratory. Interpretive data was last reviewed on 11/14/2023 Axilla/Groin 04/07/2024 4:54 PM CDT 04/07/2024 5:11 PM CDT Dallas Castellanos MD LAB MICROBIOLOGY - GENERAL OR DERABLES Final Result Performing Organization Address [facility] de Phone Number [facility] [employer] [address] [facility] * eGFR (04/06/2024 10:43 PM CDT) Pathologist [facility] eGFR >90 >=60 mL/min/1. 73 m2 Comment: [...] interpretive data was last reviewed 2021. Blood 04/06/2024 10:4 3 PM CDT 04/06/2024 11:02 PM CDT us Con Lewis MD LAB BLOOD ORDERABLES nal Result [facility] Department [place] [address] * (ABNORMAL) Differential, auto (04/06/2024 10:43 PM CDT) Neutrophil abs 0.8(L) 1.5 - 6.5 K/cumm Imm gran abs 0.0 0.0 - 0.1 K/cumm [facility] Lymphocyte abs 1.4 0.8 - 3.3 K/cumm [facility] Monocyte abs 0.2 0.2 - 0.8 K/cumm [facility] Eosinophil abs 0.2 0.0 - 0.5 K/cumm [facility] Basophil abs 0.0 0.0 - 0.1 K/cumm [facility] Neutrophil pct 31.4 % [facility] Comment: Consistent with previous result Interpretive Data Percent cell count reference ranges are not reported, since discordance with absolute values may lead to misinterpretation of CBC data. Current Interpretive Data was last revised on 2017. Imm gran pct 0.4 % [facility] Comment: Interpretive Data Percent cell count reference ranges are not reported, since discordance with absolute values may lead to misinterpretation of CBC data. Current Interpretive Data was last revised on 2017. Lymphocyte pct 52.6 % [facility] Comment: Interpretive Data Percent cell count reference ranges are not reported, since discordance with absolute values may lead to misinterpretation of CBC data. Current Interpretive Data was last revised on 2017. Monocyte pct 6.7 % [facility] Comment: Interpretive Data Percent cell count reference ranges are not reported, since discordance with absolute values may lead to misinterpretation of CBC data. Current Interpretive Data was last revised on 2017. Eosinophil pct 8.2 % [facility] Comment: Interpretive Data Percent cell count reference ranges are not reported, since discordance with absolute values may lead to misinterpretation of CBC data. Current Interpretive Data was last revised on 2017. Basophil pct 0.7 % [facility] Comment: Interpretive Data Percent cell count reference ranges are not reported, since discordance with absolute values may lead to misinterpretation of CBC data. Current Interpretive Data was last revised on 2017. Blood 04/06/2024 10:4 3 PM CDT 04/06/2024 11:02 PM CDT Con Lewis MD LAB BLOOD ORDERABLES Fi nal Result [facility] Department [place] [address] * Basic metabolic panel (04/06/2024 10:43 PM CDT) Sodium 136 135 - 145 mmol/L Potassium, pl 4.5 3.3 - 4.9 mmol/L [facility] Chloride 105 97 - 110 mmol/L [facility] CO2 28 22 - 32 mmol/L [facility] Anion gap 3 2 - 15 mmol/L [facility] BUN 15 6 - 25 mg/dL [facility] Creatinine 0.94 0.80 - 1.30 mg/dL [facility] Glucose 128 70 - 199 mg/dL [facility] Comment: Interpretive Data Fasting glucose [...] 2022. Calcium 8.9 8.5 - 10.3 mg/dL [facility] Blood 04/06/2024 10:4 3 PM CDT 04/06/2024 11:02 PM CDT Con Lewis MD LAB BLOOD ORDERABLES Fi nal Result [facility] Department [place] [address] * (ABNORMAL) CBC with auto differential (04/06/2024 10:43 PM CDT) WBC 2.7(L) 3.8 - 9.9 K/cumm Hgb 12.9(L) 13.0 - 17.5 g/dL [facility] Hct 41.4 38.9 - 50.3 % [facility] Plt 247 150 - 400 K/cumm [facility] MPV 10.1 9.1 - 12.3 fL [facility] RBC 4.99 4.30 - 5.80 M/cumm [facility] MCV 83.0 81.3 - 96.4 fL [facility] MCH 25.9(L) 27.1 - 33.3 pg [facility] MCHC 31.2(L) 32.3 - 35.7 g/dL [facility] RDW CV 14.6 11.1 - 14.9 % [facility] RDW SD 44.1 35.7 - 48.1 fL [facility] NRBC abs 0.00 0.00 - 0.01 K/cumm [facility] Blood 04/06/2024 10:4 3 PM CDT 04/06/2024 11:02 PM CDT us Con Lewis MD LAB BLOOD ORDERABLES Fi nal Result [facility] Department [place] [address] * (ABNORMAL) Manual Differential (04/05/2024 10:15 PM CDT) Differential Manual Cells Counted 116 [facility] Neutrophil abs 1.0(L) 1.5 - 6.5 K/cumm [facility] Imm gran abs 0.0 0.0 - 0.1 K/cumm [facility] Lymphocyte abs 1.1 0.8 - 3.3 K/cumm [facility] Monocyte abs 0.2 0.2 - 0.8 K/cumm [facility] Eosinophil abs 0.0 0.0 - 0.5 K/cumm [facility] Neutrophil pct 43.2 % [facility] Comment: Interpretive Data Percent cell count reference ranges are not reported, since discordance with absolute values may lead to misinterpretation of CBC data. Current Interpretive Data was last revised on 2017. Lymphocyte pct 43.1 % [facility] Comment: Interpretive Data Percent cell count reference ranges are not reported, since discordance with absolute values may lead to misinterpretation of CBC data. Current Interpretive Data was last revised on 2017. Monocyte pct 10.3 % [facility] Comment: Interpretive Data Percent cell count reference ranges are not reported, since discordance with absolute values may lead to misinterpretation of CBC data. Current Interpretive Data was last revised on 2017. Eosinophil pct 1.7 % [facility] Comment: Interpretive Data Percent cell count reference ranges are not reported, since discordance with absolute values may lead to misinterpretation of CBC data. Current Interpretive Data was last revised on 2017. Variant lymph pct 1.7 % [facility] Blood 04/05/2024 10:1 5 PM CDT 04/05/2024 10:42 PM CDT us Con Lewis MD LAB BLOOD ORDERABLES Fi nal Result [facility] Department [place] [address] * eGFR (04/05/2024 10:15 PM CDT) eGFR >90 >=60 mL/min/1. 73 [...] interpretive data was last reviewed 2021. Blood 04/05/2024 10:1 5 PM CDT 04/05/2024 10:36 PM CDT Con Lewis MD LAB BLOOD ORDERABLES Fi nal Result [facility] Department [place] [address] * Basic metabolic panel (04/05/2024 10:15 PM CDT) Pathologist [facility] Sodium 137 135 - 145 mmol/L Potassium, pl 4.6 3.3 - 4.9 mmol/L [facility] Chloride 105 97 - 110 mmol/L [facility] CO2 27 22 - 32 mmol/L [facility] Anion gap 5 2 - 15 mmol/L [facility] BUN 16 6 - 25 mg/dL [facility] Creatinine 1.03 0.80 - 1.30 mg/dL [facility] Glucose 89 70 - 199 mg/dL [facility] Comment: Interpretive Data Fasting glucose [...] 2022. Calcium 8.9 8.5 - 10.3 mg/dL [facility] Blood 04/05/2024 10:1 5 PM CDT 04/05/2024 10:36 PM CDT Con Lewis MD LAB BLOOD ORDERABLES Fi nal Result Performing Organization Address City/[facility]/ZIP Co de Phone Number [facility] Department [place] [address] * (ABNORMAL) CBC with auto differential (04/05/2024 10:15 PM CDT) Pathologist [facility] WBC 2.4(L) 3.8 - 9.9 K/cumm Hgb 12.4(L) 13.0 - 17.5 g/dL [facility] Hct 40.4 38.9 - 50.3 % [facility] Plt 230 150 - 400 K/cumm [facility] MPV 10.0 9.1 - 12.3 fL [facility] RBC 4.79 4.30 - 5.80 M/cumm [facility] MCV 84.3 81.3 - 96.4 fL [facility] MCH 25.9(L) 27.1 - 33.3 pg [facility] MCHC 30.7(L) 32.3 - 35.7 g/dL [facility] RDW CV 14.7 11.1 - 14.9 % [facility] RDW SD 45.7 35.7 - 48.1 fL [facility] NRBC abs 0.00 0.00 - 0.01 K/cumm [facility] Blood 04/05/2024 10:1 5 PM CDT 04/05/2024 10:37 PM CDT us Con Lewis MD LAB BLOOD ORDERABLES Fi nal Result Performing Organization Address City/[facility]/ZIP Co de Phone Number [facility] Department [place] [address] * (ABNORMAL) Urinalysis, microscopic only (04/05/2024 11:53 AM CDT) WBC, ur 0-5 0 - 5 /HPF RBC, ur 0-2 0 - 2 /HPF [facility] Epithelial cells, squamous, ur 1-5 0 - 5 /HPF [facility] Mucous, ur Present(A) [facility] Culture Reflex Comment Reflex conditions for urine culture (WBC >10) not met. [facility] Urine 04/05/2024 11:5 3 AM CDT 04/05/2024 1:32 PM CDT Con Lewis MD LAB URINE ORDERABLES Fi nal Result Performing Organization Address City/[facility]/ZIP Co de Phone Number [facility] Department [place] [address] * (ABNORMAL) Urinalysis reflex to microscopic and culture Urine (04/05/2024 11:53 AM CDT) Color, ur Yellow Yellow Clarity, ur Clear Clear [facility] Specific gravity, ur >1.042(H) 1.003 - 1.030 [facility] pH, urine 6.5 [facility] Comment: Interpretive Data ? Urine pH is affected by diet, medications, systemic acid-base disturbances, and renal tubular function. ??pH may affect urinary stone formation. ??For example, urine pH below 6.0 may help reduce the tendency for calcium phosphate stones and pH greater than 6.0 may reduce the tendency for uric acid stone formation. Source: [facility] Current Interpretive Data was last revised on 2017 Protein, ur ql 1+(A) Negative [facility] Glucose, ur ql Negative Negative [facility] Ketones, ur Trace Negative [facility] Bilirubin, ur Negative Negative [facility] Blood, ur Negative Negative [facility] Urobilinogen, ur 4.0(A) <2.0 mg/dL [facility] Nitrite, ur Negative Negative [facility] Leukocyte esterase, ur Negative Negative [facility] UA reflex comment Reflex to microscopic UA will be performed. [facility] Urine 04/05/2024 11:5 3 AM CDT 04/05/2024 1:32 PM CDT Con Lewis MD LAB MICROBIOLOGY - [facility] ORDERABLES Final Result [facility] Department [place] [address] * (ABNORMAL) Drugs of Abuse Screen, Urine without Confirmation (04/05/2024 11:53 AM CDT) Amphetamine, ur Screen Positive, presumptive [...] Barbiturates, ur Not Detected CutOff 200ng/mL [facility] Comment: Interpretive Data - Barbiturates: ??Samples containing greater than 200 ng/mL secobarbital or other cross-reacting barbiturate compounds are reported as positive. ??False positive and false negative results are possible. Confirmatory testing required for definitive results. Current Interpretive Data was last reviewed 2023. Benzodiazepines, ur Not Detected CutOff 100ng/mL [facility] Comment: Interpretive Data - Benzodiazepines: ??Samples containing greater than 100 ng/mL nordiazepam or other cross-reacting compounds are reported as positive. False positive and false negative results are possible. Confirmatory testing required for definitive results. Current Interpretive Data was last reviewed 2023. Cannabinoids, ur Not Detected CutOff 50 ng/mL [facility] Comment: Interpretive Data - Cannabinoids: ??Samples containing greater than 50 ng/mL delta-9 THC -COOH or other cross-reacting compounds are reported as positive. ??False positive and false negative results are possible. ??Confirmatory testing required for definitive results. Current Interpretive Data was last reviewed 2023. Cocaine, ur Screen Positive, presumptive (A) CutOff 150ng/mL [facility] Comment: Interpretive Data - Cocaine: ??Samples containing greater than 150 ng/mL benzoylecgonine or other cross-reacting compounds are reported as positive. False positive and false negative results are possible. Confirmatory testing required for definitive results. Current Interpretive Data was last reviewed 2023. Fentanyl, Ur Screen Positive, presumptive (A) CutOff 5 ng/mL [facility] Comment: Interpretive [...] 2023. Opiates, ur Not Detected CutOff 300ng/mL [facility] Comment: Interpretive Data - Opiates: ??Samples containing greater than 300 ng/mL morphine or other cross-reacting compounds are reported as positive. ??False positive and false negative results are possible. Confirmatory testing required for definitive results. Current Interpretive Data was last reviewed 2023. Oxycodone, ur Not Detected CutOff 100ng/mL [facility] Comment: Interpretive Data - Oxycodone: ??Samples containing greater than 100 ng/mL oxycodone or other cross-reacting compounds are reported as ??positive. ??False positive and false negative results are possible. Confirmatory testing required for definitive results. Current Interpretive Data was last reviewed 2023. Phencyclidine, ur Not Detected CutOff 25 ng/mL [facility] Comment: Interpretive Data - Phencyclidine: ??Samples containing greater than 25 ng/mL phencyclidine or other cross-reacting compounds are reported as positive. ??False positive and false negative results are possible. Confirmatory testing required for definitive results. Current Interpretive Data was last reviewed 2023. Urine Creatinine 306 mg/dL [facility] Comment: Interpretive Data Urine Creatinine: < 10 mg/dL is extremely dilute = or > 10 but < 20 mg/dL is dilute = or > 20 mg/dL is normal Current Interpretive Data was last revised on 2017. Urine 04/05/2024 11:5 3 AM CDT 04/05/2024 1:32 PM CDT Narrative [facility] - 04/05/2024 2:16 PM CDT Drug of Abuse screening is performed by immunoassay for medical purposes only. ??This is not to be used for Pain Management purposes. us Con Lewis MD LAB URINE ORDERABLES Fi nal Result [facility] Department [place] [address] * (ABNORMAL) T-helper cells (CD4) count (04/04/2024 11:00 PM CDT) CD4 pct 14(L) 31 - 64 % CD4 Absolute 138(L) 365 - 1,294 cells/mcL [facility] Blood 04/04/2024 11:0 0 PM CDT 04/05/2024 12:14 AM CDT us Jamie Gutiérrez MD LAB BLOOD ORDERABLES F inal Result [facility] Department [place] [address] * CT Facial Bones W Contrast (04/04/2024 11:23 AM CDT) Anatomical Region Laterality Modality Head and Neck N/A Computed Tomogra phy 04/04/2024 12:1 7 PM CDT Impressions 04/04/2024 12:17 PM CDT Right 1st premolar dental abscess with marked overlying facial cellulitis but no apparent signs of underlying osteomyelitis. Electronically signed by: Domenic Crawford MD Narrative 04/04/2024 12:17 PM CDT EXAMINATION: CT of the maxillofacial bones, orbits, and paranasal sinuses with contrast HISTORY: ??Maxillary/facial abscess. TECHNIQUE: Computed tomography of the maxillofacial bones, orbits, and paranasal sinuses was performed according to standard protocol following the uneventful administration of intravenous contrast. CONTRAST: 69 mL Optiray-350 COMPARISON: No priors. FINDINGS: The patient is partially edentulous with multiple prominent dental caries involving the right mandibular teeth. In particular, there are large caries involving the right mandibular 1st premolar and 1st molar with associated dental abscess involving the right 1st premolar which measures approximately 2.1 x 0.6 x 1.5 cm. There is no apparent erosion of the adjacent alveolar ridge. Marked overlying right facial cellulitis is noted. No acute maxillofacial fractures are identified. The visualized portions of the orbits are normal. The visualized portions of the mastoids are normal. The visualized portions of the paranasal sinuses are normal. The nasal septum is at midline. Procedure Note Domenic Crawford MD - 04/04/2024 EXAMINATION: CT of the maxillofacial bones, orbits, and paranasal sinuses with contrast HISTORY: Maxillary/facial abscess. TECHNIQUE: Computed tomography of the maxillofacial bones, orbits, and paranasal sinuses was performed according to standard protocol following the uneventful administration of intravenous contrast. CONTRAST: 69 mL Optiray-350 COMPARISON: No priors. FINDINGS: The patient is partially edentulous with multiple prominent dental caries involving the right mandibular teeth. In particular, there are large caries involving the right mandibular 1st premolar and 1st molar with associated dental abscess involving the right 1st premolar which measures approximately 2.1 x 0.6 x 1.5 cm. There is no apparent erosion of the adjacent alveolar ridge. Marked overlying right facial cellulitis is noted. No acute maxillofacial fractures are identified. The visualized portions of the orbits are normal. The visualized portions of the mastoids are normal. The visualized portions of the paranasal sinuses are normal. The nasal septum is at midline. IMPRESSION: Right 1st premolar dental abscess with marked overlying facial cellulitis but no apparent signs of underlying osteomyelitis. Electronically signed by: Domenic Crawford MD Pardeep Montano MD [facility] [place]ED[place] Final Result * eGFR (04/04/2024 9:39 AM CDT) eGFR >90 >=60 mL/min/1. 73 [...] interpretive data was last reviewed 2021. Blood 04/04/2024 9:39 AM CDT 04/04/2024 9:48 AM CDT us Pardeep Montano MD LAB BLOOD ORDERABLES Fi nal Result [facility] Department [place] [address] * Differential, auto (04/04/2024 9:39 AM CDT) Neutrophil abs 3.3 1.5 - 6.5 K/cumm Imm gran abs 0.0 0.0 - 0.1 K/cumm [facility] Lymphocyte abs 1.3 0.8 - 3.3 K/cumm [facility] Monocyte abs 0.5 0.2 - 0.8 K/cumm [facility] Eosinophil abs 0.0 0.0 - 0.5 K/cumm [facility] Basophil abs 0.0 0.0 - 0.1 K/cumm [facility] Neutrophil pct 63.4 % [facility] Comment: Interpretive Data Percent cell count reference ranges are not reported, since discordance with absolute values may lead to misinterpretation of CBC data. Current Interpretive Data was last revised on 2017. Imm gran pct 0.4 % [facility] Comment: Interpretive Data Percent cell count reference ranges are not reported, since discordance with absolute values may lead to misinterpretation of CBC data. Current Interpretive Data was last revised on 2017. Lymphocyte pct 25.1 % [facility] Comment: Interpretive Data Percent cell count reference ranges are not reported, since discordance with absolute values may lead to misinterpretation of CBC data. Current Interpretive Data was last revised on 2017. Monocyte pct 10.3 % [facility] Comment: Interpretive Data Percent cell count reference ranges are not reported, since discordance with absolute values may lead to misinterpretation of CBC data. Current Interpretive Data was last revised on 2017. Eosinophil pct 0.4 % [facility] Comment: Interpretive Data Percent cell count reference ranges are not reported, since discordance with absolute values may lead to misinterpretation of CBC data. Current Interpretive Data was last revised on 2017. Basophil pct 0.4 % [facility] Comment: Interpretive Data Percent cell count reference ranges are not reported, since discordance with absolute values may lead to misinterpretation of CBC data. Current Interpretive Data was last revised on 2017. Blood 04/04/2024 9:39 AM CDT 04/04/2024 9:48 AM CDT Pardeep Montano MD LAB BLOOD ORDERABLES nal Result [facility] Department [place] [address] * (ABNORMAL) Comprehensive metabolic panel (04/04/2024 9:39 AM CDT) Sodium 141 135 - 145 mmol/L Potassium, pl 4.5 3.3 - 4.9 mmol/L [facility] Comment:Hemolyzed; Potassium value may be falsely elevated by as much as 0.3-0.5 mmol/L. Suggest redraw and reanalysis. Chloride 104 97 - 110 mmol/L [facility] CO2 27 22 - 32 mmol/L [facility] Anion gap 10 2 - 15 mmol/L [facility] BUN 15 6 - 25 mg/dL [facility] Creatinine 0.98 0.80 - 1.30 mg/dL [facility] Glucose 84 70 - 199 mg/dL [facility] Comment: Interpretive Data Fasting glucose [...] 2022. Calcium 9.4 8.5 - 10.3 mg/dL [facility] Bilirubin, total 0.8 0.1 - 1.2 mg/dL [facility] Protein, pl 9.3(H) 6.5 - 8.5 g/dL [facility] Albumin 4.4 3.5 - 5.0 g/dL [facility] Alk phos 87 40 - 130 Units/L [facility] ALT 29 7 - 55 Units/L [facility] AST 47 10 - 50 Units/L [facility] Comment:Hemolyzed; result ma y be falsely elevated Blood 04/04/2024 9:39 AM CDT 04/04/2024 9:48 AM CDT us Pardeep Montano MD LAB BLOOD ORDERABLES Fi nal Result Performing Organization Address City/[facility]/ZIP Co de Phone Number [facility] Department of [employer] [place] [address] * Thyroid Function [place] (04/04/2024 9:39 AM CDT) TSH 0.32 0.30 - 4.20 mcIUnit/mL Blood 04/04/2024 9:39 AM CDT 04/04/2024 9:48 AM CDT us Pardeep Montano MD LAB BLOOD ORDERABLES Fi nal Result Performing Organization Address [facility]/ZIP Co de Phone Number [facility] Department [place] [address] * (ABNORMAL) CBC with auto differential (04/04/2024 9:39 AM CDT) WBC 5.2 3.8 - 9.9 K/cumm Hgb 14.3 13.0 - 17.5 g/dL [facility] Hct 44.5 38.9 - 50.3 % [facility] Plt 257 150 - 400 K/cumm [facility] MPV 10.2 9.1 - 12.3 fL [facility] RBC 5.45 4.30 - 5.80 M/cumm [facility] MCV 81.7 81.3 - 96.4 fL [facility] MCH 26.2(L) 27.1 - 33.3 pg [facility] MCHC 32.1(L) 32.3 - 35.7 g/dL [facility] RDW CV 14.5 11.1 - 14.9 % [facility] RDW SD 42.5 35.7 - 48.1 fL [facility] NRBC abs 0.00 0.00 - 0.01 K/cumm [facility] Blood 04/04/2024 9:39 AM CDT 04/04/2024 9:48 AM CDT us Pardeep Montano MD LAB BLOOD ORDERABLES nal Result [facility] Department [place] [address] documented in this encounter Visit Diagnoses Diagnosis Dental abscess- Primary Periapical abscess without sinus Dental abscess Periapical abscess without sinus Suicidal ideation 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, unspecified HIV infection, unspecified symptom status (HCC) HIV disease (CMS/HCC) ([facility]) Human immunodeficiency virus [HIV] disease Syphilis Unspecified syphilis documented in this encounter Admitting Diagnoses Diagnosis Dental abscess Periapical abscess without sinus documented in this encounter Administered Medications Inactive Administered Medications - up to 3 most recent administrations Medication Order MAR Action Action Date Dose Rate Site acetaminophen (TYLENOL) tablet 650 mg 650 mg, oral, Every 6 hours PRN, 1st line for pain, Starting on Sun04/04/24 at 2152 Given 04/08/2024 1:46 PM CDT 650 mg Given 04/07/2024 8:13 PM CDT 650 mg Given 04/07/2024 11:22 AM CDT 650 mg amoxicillin-clavulanate (AUGMENTIN) 875-125 mg per tablet 875 mg of amoxicillin 875 mg of amoxicillin, oral, 2 times daily, First dose on Sun04/10/24 at 0900, Indications: dental abscessIndications:dental abscess Given 04/10/2024 12:12 PM CDT 875 mg of amoxicillin ampicillin-sulbactam (UNASYN) 3 g/110 mL in sodium chloride 0.9% (premix) 3 g 3 g, intravenous, Administer over 30 Minutes, Every 6 hours scheduled, First dose on Sun04/04/24 at 1200, Indications: Skin/Soft Tissue InfectionIndications:Skin/Sof t Tissue Infection New Bag 04/09/2024 2:20 PM CDT 3 g New Bag 04/09/2024 7:58 AM CDT 3 g New Bag 04/09/2024 2:46 AM CDT 3 g ARIPiprazole (ABILIFY) tablet 10 mg 10 mg, oral, Daily, First dose (after last modification) on Sun04/04/24 at 1745, Indications: Depression Treatment AdjunctIndications:Depression Treatment Adjunct Given 04/10/2024 10:21 AM CDT 10 mg Given 04/09/2024 8:27 AM CDT 10 mg Given 04/08/2024 8:43 AM CDT 10 mg benzocaine (HURRICAINE) 20 % mouth spray 1 spray 1 spray, mouth/throat, Once, On Sun04/04/24 at 1325, For 1 dose Given 04/04/2024 2:42 PM CDT 1 spray citiyjjdisv-soojktzhbfzpw-kxuvaprld (BIKTARVY) 50-200-25 mg per tablet 1 tablet 1 tablet, oral, Daily, First dose on Sun04/04/24 at 1745, May be dissolved in 240 mL of water. Give 2 hrs before or 6 hrs after MVI, antacids, or other products containing sucralfate, magnesium, aluminum, iron, or zinc., Indications: HIV infectionIndications:HIV infection Given 04/10/2024 10:21 AM CDT 1 tablet Given 04/09/2024 8:28 AM CDT 1 tablet Given 04/08/2024 8:43 AM CDT 1 tablet doxepin (SINEquan) capsule 25 mg 25 mg, oral, Nightly, First dose on Sun04/04/24 at 2100 Given 04/09/2024 8:17 PM CDT 25 mg Given 04/08/2024 8:48 PM CDT 25 mg Given 04/07/2024 8:13 PM CDT [address] (CYMBALTA) extended release capsule 60 mg 60 mg, oral, Daily, First dose on Sun04/04/24 at 1745, Capsule may be opened and contents mixed with applesauce or apple juice ONLY. Do not crush or chew capsule, Indications: unsepcified depressionIndications:unsepcified depression Given 04/10/2024 10:21 AM CDT 60 mg Given 04/09/2024 8:28 AM CDT 60 mg Given 04/08/2024 8:43 AM CDT 60 mg enoxaparin (LOVENOX) syringe 40 mg 40 mg, subcutaneous, Daily (for enoxaparin), First dose on Sun04/04/24 at 2100, Indications: Deep Vein Thrombosis PreventionIndications:Deep Vein Thrombosis Prevention Given 04/09/2024 8:17 PM CDT 40 mg Left Upper Abdomen Given 04/06/2024 9:01 PM CDT 40 mg Le ft Forearm Given 04/05/2024 8:35 PM CDT 40 mg Le ft Forearm fentaNYL (SUBLIMAZE) preservative free injection 50 mcg 50 mcg, intravenous, Once as needed, 1st line for pain, Starting on Sun04/04/24 at 1324, For 1 dose Given 04/04/2024 2:35 PM CDT 50 mcg HYDROcodone-acetaminophen (NORCO) 5-325 mg per tablet 1 tablet 1 tablet, oral, Every 4 hours PRN, 2nd line for pain, Starting on Sun04/04/24 at 2152, Indications: PainIndications:Pain Given 04/09/2024 8:18 PM CDT 1 tablet Given 04/08/2024 8:48 PM CDT 1 tablet Given 04/08/2024 5:06 PM CDT 1 tablet hydrOXYzine (ATARAX) tablet 50 mg 50 mg, oral, Every 6 hours PRN, anxiety, Starting on Sun04/04/24 at 1712 Given 04/07/2024 8:13 PM CDT 50 mg Given 04/06/2024 9:01 PM CDT 50 mg Given 04/05/2024 8:34 PM CDT 50 mg ioversoL (OPTIRAY 350) syringe 75 mL 75 mL, intravenous, Once in imaging, contrast, Starting on Sun04/04/24 at 1123, For 1 dose Contrast Given 04/04/2024 11:37 AM CDT 69 mL lidocaine-EPINEPHrine (XYLOCAINE with EPI) 1 %-1:200,000 preservative free injection 10 mL 10 mL, infiltration, Once, On Sun04/04/24 at 1325, For 1 dose, Indications: Administration of Local AnesthesiaIndications:Administration of Local Anesthesia Given 04/04/2024 2:42 PM CDT 10 mL OLANZapine (ZyPREXA) tablet 10 mg 10 mg, oral, Once, On Sun04/04/24 at 0935, For 1 dose Given by Other 04/04/2024 9:35 AM CDT 10 mg ondansetron (ZOFRAN) injection 4 mg 4 mg, intravenous, Administer over 2 Minutes, Every 6 hours PRN, nausea, vomiting, if not tolerating PO, Starting on Sun04/04/24 at 1712, Indications: Nausea and VomitingIndications:Nausea and Vomiting ondansetron ODT (ZOFRAN-ODT) disintegrating tablet 4 mg 4 mg, oral, Every 6 hours PRN, nausea, vomiting, Starting on Sun04/04/24 at 1712, Indications: Nausea and VomitingIndications:Nausea and Vomiting ramelteon (ROZEREM) tablet 8 mg 8 mg, oral, Nightly PRN, sleep, Starting on Sun04/04/24 at 2033, Indications: Sleep-Onset InsomniaIndications:Sleep-Onset Insomnia Given 04/09/2024 8:18 PM CDT 8 mg Given 04/08/2024 8:48 PM CDT 8 mg Given 04/07/2024 8:13 PM CDT 8 mg sodium chloride 0.9% bolus 1,000 mL 1,000 mL, intravenous, Once, On Sun04/04/24 at 0955, For 1 dose New Bag 04/04/2024 10:04 AM CDT 1,000 mL sodium chloride 0.9% flush 0.5-20 mL 0.5-20 mL, intra-catheter, Every 8 hours scheduled, First dose on Sun04/04/24 at 1745, Flush volume based on line type and size. Given 04/09/2024 8:18 PM CDT 10 mL Given 04/09/2024 2:20 PM CDT 10 mL Given 04/09/2024 7:59 AM CDT 10 mL sulfamethoxazole-trimethopri m (BACTRIM DS) 800-160 mg per tablet 160 mg of trimethoprim 160 mg of trimethoprim, oral, Daily, First dose on Sun04/08/24 at 2030, Indications: Prophylaxis, MedicalIndications:Prophylax is, Medical Given 04/10/2024 10:21 AM CDT 160 mg of trimethoprim Given 04/09/2024 8:27 AM CDT 160 mg of trimethoprim Given 04/08/2024 8:48 PM CDT 160 mg of trimethoprim documented in this encounter Discontinued Medications Medication Sig Discontinue Reason Start Date End Da te bictegravir-emtricitab ine-tenofovir (Biktarvy) 50-200-25 mg tablet Take 1 tablet by mouth daily Error 08/08/2023 04/07/2024 ARIPiprazole (ABILIFY) 10 mg tabletIndications:Depr ession Treatment Adjunct Take 1 tablet (10 mg total) by mouth daily 04/10/2024 04/10/2024 ARIPiprazole (ABILIFY) 5 mg tabletIndications:Depr ession Treatment Adjunct Take 1 tablet (5 mg total) by mouth daily Stop Taking at Discharge 01/29/2024 04/10/2024 cloNIDine (CATAPRES) 0.1 mg tablet Take 1 tablet (0.1 mg total) by mouth 2 (two) times a day as needed for high blood pressure Stop Taking at Discharge 03/01/2024 04/10/2024 bictegravir-emtricitab ine-tenofovir (BIKTARVY) 50-200-25 mg tabletIndications:HIV infection Take 1 tablet by mouth daily Stop Taking at Discharge 03/04/2024 04/10/2024 documented as of this encounter Active and Recently Administered Medications Times are shown in CDT. Scheduled Medication Order 04/08/2024 04/09/2024 04/10/2024 amoxicillin-clavulanate (AUGMENTIN) 875-125 mg per tablet 875 mg of amoxicillin 875 mg of amoxicillin, oral, 2 times daily, First dose on Sun04/10/24 at 0900, Indications: dental abscess 1212 (Given - Provider: Margo Clarke) ampicillin-sulbactam (UNASYN) 3 g/110 mL in sodium chloride 0.9% (premix) 3 g (CANCELED) 3 g, intravenous, Administer over 30 Minutes, Every 6 hours scheduled, First dose on Sun04/04/24 at 1200, Indications: Skin/Soft Tissue Infection 0302 (New Bag - Provider: Amara Dickey RN)0746 (New Bag - Provider: Vince Byers)1337 (New Bag - Provider: Vince Byers)2048 (New Bag - Provider: Amara Dickey RN) 0246 (New Bag - Provider: Amara Dickey RN)0758 (New Bag - Provider: Chilo Palacios RN)1420 (New Bag - Provider: Chilo Palacios RN) ARIPiprazole (ABILIFY) tablet 10 mg 10 mg, oral, Daily, First dose (after last modification) on Sun04/04/24 at 1745, Indications: Depression Treatment Adjunct 0843 (Given - Provider: Vince Byers) 0827 (Given - Provider: Chilo Palacios RN) 1021 (Given - Provider: Margo Clarke) bictegravir-emtricitabi ne-tenofovir (BIKTARVY) 50-200-25 mg per tablet 1 tablet 1 tablet, oral, Daily, First dose on Sun04/04/24 at 1745, May be dissolved in 240 mL of water. Give 2 hrs before or 6 hrs after MVI, antacids, or other products containing sucralfate, magnesium, aluminum, iron, or zinc., Indications: HIV infection 0843 (Given - Provider: Vince Byers) 0828 (Given - Provider: Chilo Palacios RN) 1021 (Given - Provider: Margo Clarke) doxepin (SINEquan) capsule 25 mg 25 mg, oral, Nightly, First dose on Sun04/04/24 at 2100 2048 (Given - Provider: Amara Dickey RN) 2017 (Given - Provider: Amara Dickey RN) DULoxetine DR (CYMBALTA) extended release capsule 60 mg 60 mg, oral, Daily, First dose on Sun04/04/24 at 1745, Capsule may be opened and contents mixed with applesauce or apple juice ONLY. Do not crush or chew capsule, Indications: unsepcified depression 0843 (Given - Provider: Vince Byers) 0828 (Given - Provider: Chilo Palacios, RN) 1021 (Given - Provider: Margo Clarke) enoxaparin (LOVENOX) syringe 40 mg 40 mg, subcutaneous, Daily (for enoxaparin), First dose on Sun04/04/24 at 2100, Indications: Deep Vein Thrombosis Prevention 1950 (Unheld by Provider - Provider: Brandy Beyer MD)2100 (Hold - Provider: Amara Dickey RN - Reason: See Provider Order) 2016 (Given - Provider: Amara Dickey RN) sodium chloride 0.9% flush 0.5-20 mL 0.5-20 mL, intra-catheter, Every 8 hours scheduled, First dose on Sun04/04/24 at 1745, Flush volume based on line type and size. 0535 (Given - Provider: Amara Dickey RN)1343 (Given - Provider: Vince Byers)2050 (Given - Provider: Amara Dickey RN) 0759 (Given - Provider: Chilo Palacios, RN)1420 (Given - Provider: Chilo Palacios, RN)2017 (Given - Provider: Amara Dickey RN) 1023 (Not Given - Provider: Margo Clarke - Reason: Patient/family refused)1400 (Due) sulfamethoxazole-trimet hoprim (BACTRIM DS) 800-160 mg per tablet 160 mg of trimethoprim 160 mg of trimethoprim, oral, Daily, First dose on Sun04/08/24 at 2030, Indications: Prophylaxis, Medical 2047 (Given - Provider: Amara Dickey RN) 0827 (Given - Provider: Chilo Palacios, RN) 1021 (Given - Provider: Margo Clarke) PRN Medication Order 04/08/2024 04/09/2024 04/10/2024 acetaminophen (TYLENOL) tablet 650 mg(Linked Group 1) 650 mg, oral, Every 6 hours PRN, 1st line for pain, Starting on Sun04/04/24 at 2152 1346 (Given - Provider: Vince Byers)1705 (See Alternative - Provider: Vince Byers)2047 (See Alternative - Provider: Amara Dickey RN) 2017 (See Alternative - Provider: Amara Dickey RN) Carrier Fluids for Secondary Infusion - 0.9% Sodium Chloride 30 mL, intravenous, As needed, For priming tubing and/or flushing, Starting on Sun04/04/24 at 1712, 0-250 ml/hr to flush line after IV infusions when no maintenance IV ordered. Infuse 30mL at the same rate as the secondary infusion. Run as primary IV, not intended for KVO. HYDROcodone-acetaminophen (NORCO) 5-325 mg per tablet 1 tablet(Linked Group 1) 1 tablet, oral, Every 4 hours PRN, 2nd line for pain, Starting on Sun04/04/24 at 2152, Indications: Pain 1346 (See Alternative - Provider: Vince Byers)1705 (Given - Provider: Vince Byers)2047 (Given - Provider: Amara Dickey RN) 2018 (Given - Provider: Amara Dickey RN) hydrOXYzine (ATARAX) tablet 50 mg 50 mg, oral, Every 6 hours PRN, anxiety, Starting on Sun04/04/24 at 1712 ondansetron (ZOFRAN) injection 4 mg(Linked Group 2) 4 mg, intravenous, Administer over 2 Minutes, Every 6 hours PRN, nausea, vomiting, if not tolerating PO, Starting on Sun04/04/24 at 1712, Indications: Nausea and Vomiting ondansetron ODT (ZOFRAN-ODT) disintegrating tablet 4 mg(Linked Group 2) 4 mg, oral, Every 6 hours PRN, nausea, vomiting, Starting on Sun04/04/24 at 1712, Indications: Nausea and Vomiting ramelteon (ROZEREM) tablet 8 mg 8 mg, oral, Nightly PRN, sleep, Starting on Sun04/04/24 at 2033, Indications: Sleep-Onset Insomnia 2047 (Given - Provider: Amara Dickey RN) 2017 (Given - Provider: Amara Dickey RN) sodium chloride 0.9% flush 0.5-20 mL 0.5-20 mL, intra-catheter, As needed, line care, Starting on Sun04/04/24 at 1712, Flush volume based on line type and size. Flush before and after each use. Linked Groups Order Group 1: acetaminophen (TYLENOL) tablet 650 mgJump to med 650 mg, oral, Every 6 hours PRN, 1st line for pain, Starting on Sun04/04/24 at 2152 Or HYDROcodone-acetaminophen (NORCO) 5-325 mg per tablet 1 tabletJump to med 1 tablet, oral, Every 4 hours PRN, 2nd line for pain, Starting on Sun04/04/24 at 2152, Indications: Pain Group 2: ondansetron ODT (ZOFRAN-ODT) disintegrating tablet 4 mgJump to med 4 mg, oral, Every 6 hours PRN, nausea, vomiting, Starting on Sun04/04/24 at 1712, Indications: Nausea and Vomiting Or ondansetron (ZOFRAN) injection 4 mgJump to med 4 mg, intravenous, Administer over 2 Minutes, Every 6 hours PRN, nausea, vomiting, if not tolerating PO, Starting on Sun04/04/24 at 1712, Indications: Nausea and Vomiting documented in this encounter Orders Medications Ordered That Prasad ht Not Have Been Administered Count Last Ordered Date First Ordered Date acetaminophen (TYLENOL) tablet 650 mg 1 ARIPiprazole (ABILIFY) tablet 5 mg 1 2023 Carrier Fluids for Secondary Infusion - 0.9% Sodium Chloride 04/04/2024 doxepin (SINEquan) capsule 25 mg 04/04/20 ondansetron (ZOFRAN) injection 4 mg 04/04 ondansetron ODT (ZOFRAN-ODT) disintegrating tablet 4 mg 04/04/2024 sodium chloride 0.9% flush 0.5-20 mL 03/23 Lab Orders Without Results Count Last Ordered D ate First Ordered Date HIV-1 GENOTYPIC DRUG RESISTANCE 1 RPR 04/08/2024 HIV-1 RNA, QUANTITATIVE, PCR 1 04/07/2024 Diet Count Last Ordered Date First Orde red Date ADULT DISCHARGE DIET 1 04/09/2024 Nursing Count Last Ordered Date First Orde red Date DISCHARGE ACTIVITY 2 04/10/2024 DISCHARGE CALL PROVIDER 4 04/09/2024 DISCHARGE INSTRUCTIONS 1 04/09/2024 WEIGH PATIENT 1 04/04/2024 Consult Count Last Ordered Date First Orde red Date CONSULT TO GENERAL INFECTIOUS DISEASE 1 IP CONSULT TO SOCIAL WORK 2 04/06/2024 IP CONSULT TO PSYCHIATRY 1 04/05/2024 IP CONSULT TO ENT 1 04/04/2024 Admission Count Last Ordered Date First Orde red Date ADMIT TO INPATIENT 1 04/04/2024 Discharge Count Last Ordered Date First Orde red Date DISCHARGE PATIENT 1 04/10/2024 documented in this encounter Additional Health Concerns Infection Onset Date Last Indicated Resolved Time Ring Surveillance 04/06/2024 04/06/2024 04/13/2024 3:05 AM CDT documented as of this encounter Care Teams Health Information Manager Relationship Specialty Start Date End Date Mady Sullivan MD [address] [id number] PCP - General Infectious Diseases 10/12/23 No, Physician 10/12/23 documented as of this encounter
--- OUTSIDE RECORDS SUMMARY | 2024-08-10 03:34 | XMS_ITS | Encounter Summary ---
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 admission in the last month (overall has had eight ED presnetations)where has has reported either suicidal ideation or a suicide attempt. There has been no objective evidence that pt has made any attempts to harm himself despite his report. He has also reported inconsistencies to providers regarding his (step)father passing away, OD'ing, throwing himself down a flight of stairs as reasons for psychiatric presentation. Collateral conversations w/ his mother duringprior visit suggests that his step-father is very much alive and lives in [facility] (pt reported [place]). Overall, his recurrent presentations are consistent with [...] milieu, standard behavioral health monitoring, supportive psychotherapy * Assessment & Plan Note - Rosa Isela Leal MD - 03/03/2024 10:53 AM CDT Associated Problem(s): Limping Reports hx of transverse myelitis. Unable to review prior records. Strength and sensation testing grossly intact. Vibratory sensation intact. Hx HIV. Prior normal total MRI spine (10/2023) * Assessment & Plan Note - Rosa Isela Leal MD - 03/03/2024 10:47 AM CDT Associated Problem(s): Skin lesion Encouraged patient to f/u with rescheduling rectal wart treatment as OP. Verbalized understanding. * Assessment & Plan Note - Rosa Isela Leal MD - 03/03/2024 10:46 AM CDT Associated Problem(s): Depressive disorder Hx of chronic issues, prior suicide attempts. Multiple social stressors. euthyroid See above. * Assessment & Plan Note - Rosa Isela Leal MD - 03/03/2024 10:41 AM CDT Associated Problem(s): HIV (human immunodeficiency virus infection) (HCC) Reports OP compliance with Biktarvy Resume home medication, ensure patient has 30d supply on DC OP f/u with ID specialist * Assessment & Plan Note - Rosa Isela Leal MD - 03/03/2024 10:40 AM CDT Associated Problem(s): Neutropenia (HCC) Hx HIV on antivirals Afebrile Resume home medication Last CD4 87 (10/2023), * Assessment & Plan Note - Rosa Isela Leal MD - 03/03/2024 10:39 AM CDT Associated Problem(s): Borderline personality disorder (CMS/HCC) (HCC) Suicide attempt with drug OD of abilify and throwing himself down flight of stairs. No injuries noted, reports chronic odd gait. Euthyroid * Plan of Care - Viry Lombardo RN - 03/03/2024 8:34 AM CDT Goals: Clinical Goals for the Shift: None stated Summary: Assumed care of Manuel Chase. Upon assessment He was resting in his assigned room. He was calm, pleasant and cooperative. He denied SI, HI, AVH, and denies pain. He expressed anxiety 8, depression 8. Prn atarax administered for anxiety. None stated for goal. Patient report bowel movement 03/02. Manuel Chase denied all other issues. [place] was present on patient. Will continue to monitor safety rounds q15 minutes as ordered. Plan of care ongoing. 09 Upon reassessment of PRN atarax. Patient is noted in bed and appears asleep. Respirations evenand unlabored. No signs of distress noted. PRN effective. 1214 Patient called RN this freelance copywriter over to talk with his comp field case manager Isadora. Isadora stated patientwas making SI statements to hurt his self if he ends up being discharged. Isadora stated she feels it is not safe to discharge patient. When assessing Manuel Chase he stated he rated SI thoughts 04/01. He stated he does have a plan to jump off his bathroom sink head first. This freelance copywriter informed Manuel Chase to stay in the milieu until advised. Patient verbalize understanding. This was reportedto Dr. Orozco. 1237 atarax administered for 05/01 anxiety. Will FU in an hour 1337 Upon reassessment of PRN atarax. Patient is noted in much calmer. PRN effective Problem: Alteration in Thought Process Goal: LTG: Displays ability to differentiate between delusional thinking and reality by discharge Outcome: Progressing Goal: STG: Verbalize importance of compliance with medication prescribed Outcome: Progressing Flowsheets (Taken 03/03/2024 1013) Verbalize importance of compliance with medication prescribed: Discuss medication compliance Problem: Anxiety Goal: STG: Ability to identify symptoms of anxiety and factors that trigger anxiety will improve Outcome: Progressing Flowsheets (Taken 03/03/2024 1013) Ability to identify symptoms of anxiety and factors that trigger anxiety will improve: Provide emotional support Problem: Depressed Mood Goal: LTG: Demonstrates reduced symptoms of depression and improved level of functioning by discharge Outcome: Progressing Goal: LTG: Demonstrates that symptoms of depression have decreased so that safety is not compromised by discharge Outcome: Progressing Problem: Ineffective Coping Goal: STG: Identify stressors, including trauma, which led to compromised/ineffective coping Outcome: Progressing Flowsheets (Taken 03/03/2024 1013) Identify stressors, including trauma, which led to compromised/ineffective coping: Provide emotional support Provide positive reinforcement Problem: Suicide Risk/Attempt Goal: STG: Ability to remain free from self harm will improve Outcome: Progressing Flowsheets (Taken 03/03/2024 1013) Ability to remain free from self harm will improve: Provide a safe environment Problem: Suicide Risk Goal: Ability to verbalize positive feelings Outcome: Progressing Flowsheets (Taken 03/03/2024 1013) Ability to verbalize positive feelings about self will improve: Encourage verbalization of feelings Explore useful positive self talk * Plan of Care - Cynthia Alegria RN - 03/03/2024 4:59 AM CDT Problem: Alteration in Thought Process Goal: LTG: Displays ability to differentiate between delusional thinking and reality by discharge Outcome: Not Progressing Problem: Anxiety Goal: LTG: Maintain anxiety at a functional level as evidenced by absence of disabling behaviors inresponse to stress by discharge Outcome: Not Progressing Problem: Depressed Mood Goal: LTG: Demonstrates reduced symptoms of depression and improved level of functioning by discharge Outcome: Not Progressing Problem: Ineffective Coping Goal: LTG: Verbalizes and enacts adaptive coping mechanisms by discharge Outcome: Not Progressing Problem: Suicide Risk/Attempt Goal: LTG: Reduction of suicidal thoughts and absence of suicidal behavior throughout admission andestablish a safety plan by discharge Outcome: Not Progressing Summary: See nursing note. documented in this encounter Plan of Treatment Not on file documented as of this encounter Visit Diagnoses Diagnosis Borderline personality disorder (CMS/HCC) ([facility])- Primary Borderline personality disorder Borderline personality disorder (CMS/HCC) ([facility]) [F60.3] Borderline personality disorder Neutropenia ([facility]) HIV (human immunodeficiency virus infection) ([facility]) Human immunodeficiency virus [HIV] disease Depressive disorder Depressive disorder, not elsewhere classified Skin lesion Unspecified disorder of skin and subcutaneous tissue Limping Abnormality of gait documented in this encounter Administered Medications Inactive Administered Medications - up to 3 most recent administrations Medication Order MAR Action Action Date Dose Rate Site lgapoluslcq-cycdzhckfwsve-wpbyu ovir (BIKTARVY) 50-200-25 mg per tablet 1 tablet 1 tablet, oral, Daily, First dose on Sun03/03/24 at 1100, May be dissolved in 240 mL of water. Give 2 hrs before or 6 hrs after MVI, antacids, or other products containing sucralfate, magnesium, aluminum, iron, or zinc., Indications: HIV infectionIndications:HIV infection Given 03/03/2024 11:11 AM CDT 1 tablet hydrOXYzine (ATARAX) tablet 10 mg 10 mg, oral, Every 4 hours PRN, anxiety, Starting on Sun03/03/24 at 0405 Given 03/03/2024 12:37 PM CDT 10 mg Given 03/03/2024 8:34 AM CDT 10 mg Given 03/03/2024 4:16 AM CDT 10 mg OLANZapine (ZyPREXA) 10 mg in sterile water 2 mL (5 mg/mL) syringe 10 mg, intramuscular, Every 8 hours PRN, agitation, If unable to take PO, Starting on Sun03/03/24 at 1114, Reconstitute 10 mg vial with 2.1 mL SWFI. Resulting solution is ~5 mg/mL. Use immediately (within 1 hour) following reconstitution. OLANZapine (ZyPREXA) tablet 10 mg 10 mg, oral, Every 8 hours PRN, agitation, Starting on Sun03/03/24 at 1114 traZODone (DESYREL) tablet 50 mg 50 mg, oral, Nightly PRN, sleep, Starting on Sun03/03/24 at 0405 documented in this encounter Discontinued Medications Medication Sig Discontinue Reason Start Date End Da te bictegravir-emtricitab ine-tenofovir (BIKTARVY) 50-200-25 mg tabletIndications:HIV infection Take 1 tablet by mouth daily Stop Taking at Discharge 11/02/2022 03/03/2024 sertraline (ZOLOFT) 50 mg tabletIndications:Anxi ety with Depression Take 1 tablet (50 mg total) by mouth daily Stop Taking at Discharge 11/02/2022 03/03/2024 hydrOXYzine (ATARAX) 25 mg tabletIndications:anxi ety Take 1 tablet (25 mg total) by mouth every 4 (four) hours as needed for anxiety Stop Taking at Discharge 11/02/2022 03/03/2024 documented as of this encounter Active and Recently Administered Medications Times are shown in CDT. Scheduled Medication Order 03/01/2024 03/02/2024 03/03/2024 phdcjxnlhsr-adjzmquzhhihs-rzakqs vir (BIKTARVY) 50-200-25 mg per tablet 1 tablet 1 tablet, oral, Daily, First dose on Sun03/03/24 at 1100, May be dissolved in 240 mL of water. Give 2 hrs before or 6 hrs after MVI, antacids, or other products containing sucralfate, magnesium, aluminum, iron, or zinc., Indications: HIV infection 1111 (Given - Provid er: Viry Lombardo RN) PRN Medication Order 03/01/2024 03/02/2024 03/03/2024 hydrOXYzine (ATARAX) tablet 10 mg 10 mg, oral, Every 4 hours PRN, anxiety, Starting on Sun03/03/24 at 0405 0416 (Given - Provid er: Cynthia Alegria RN - Comment: for anxiety)0834 (Given - Provider: Viry Lombardo, RN)1237 (Given - Provider: Viry Lombardo, RN) OLANZapine (ZyPREXA) 10 mg in sterile water 2 mL (5 mg/mL) syringe(Linked Group 1) 10 mg, intramuscular, Every 8 hours PRN, agitation, If unable to take PO, Starting on Sun03/03/24 at 1114, Reconstitute 10 mg vial with 2.1 mL SWFI. Resulting solution is ~5 mg/mL. Use immediately (within 1 hour) following reconstitution. OLANZapine (ZyPREXA) tablet 10 mg(Linked Group 1) 10 mg, oral, Every 8 hours PRN, agitation, Starting on Sun03/03/24 at 1114 traZODone (DESYREL) tablet 50 mg 50 mg, oral, Nightly PRN, sleep, Starting on Sun03/03/24 at 0405 Linked Groups Order Group 1: OLANZapine (ZyPREXA) tablet 10 mgJump to med 10 mg, oral, Every 8 hours PRN, agitation, Starting on Sun03/03/24 at 1114 Or OLANZapine (ZyPREXA) 10 mg in sterile water 2 mL (5 mg/mL) syringeJump to med 10 mg, intramuscular, Every 8 hours PRN, agitation, If unable to take PO, Starting on Sun03/03/24 at 1114, Reconstitute 10 mg vial with 2.1 mL SWFI. Resulting solution is ~5 mg/mL. Use immediately (within 1 hour) following reconstitution. documented in this encounter Orders Medications Ordered That Prasad ht Not Have Been Administered Count Last Ordered Date First Ordered Date OLANZapine (ZyPREXA) 10 mg i n sterile water 2 mL (5 mg/mL) syringe 1 03/03/2024 OLANZapine (ZyPREXA) tablet 10 mg 1 024 traZODone (DESYREL) tablet 50 mg 1 03/03/20 Diet Count Last Ordered Date First Orde red Date ADULT DISCHARGE DIET 1 03/03/2024 Nursing Count Last Ordered Date First Orde red Date DISCHARGE ACTIVITY 1 03/03/2024 DISCHARGE CALL PROVIDER 3 03/03/2024 DISCHARGE INSTRUCTIONS 2 03/03/2024 MEASURE HEIGHT AND LENGTH 1 03/03/2024 WEIGH PATIENT 1 03/03/2024 Consult Count Last Ordered Date First Orde red Date IP CONSULT TO INTERNAL MEDICINE 1 Admission Count Last Ordered Date First Orde red Date ADMIT TO INPATIENT 1 03/03/2024 Discharge Count Last Ordered Date First Orde red Date DISCHARGE PATIENT 1 03/03/2024 CORE MEASURES Count Last Ordered Date First Ord ered Date REASON FOR NO VTE PROPHYLAXIS AT ADMISSION 1 03/03/2024 ADT Patient Update Count Last Ordered Date Firs t Ordered Date PROVIDER TREATMENT TEAM 1 03/03/2024 documented in this encounter Care Teams Anthropology Instructor Relationship Specialty Start Date End Date Mady Sullivan MD [address] [address] PCP - General Infectious Diseases 10/12/23 No, Physician 10/12/23 documented as of this encounter
--- OUTSIDE RECORDS SUMMARY | 2024-08-10 03:34 | XMS_ITS | Encounter Summary ---
Author Organization [facility] Healthcare Address [address] [place] [address] Care Team Providers Care Laundry Washer Name Role Phone Mady Sullivan MD Primary Care Provider No, Physician Unavailable Amira Javed GRAIN ELEVATOR CLERK Unavailable [phone] Reason for Visit * Reason Comments Unsuccessful Phone Call 1 Encounter Details Date Type Department Care Team (Late st Contact Info) Description 10/29/2023 SHOP/CHAP Initial Outreach [facility] OP CASE MANAGEMENT [address] [place] [id number] Amira Javed, GRAIN ELEVATOR CLERK [address] [facility] ([facility]) Mailstop [phone] [place] [address] Social History Tobacco Use Types Packs/Day Years Used Date Smoking Tobacco: Never Smokeless Tobacco: Never [facility] Utilities Answer Date Recorded In the past 12 months has [facility] [employer], gas, oil, or water [employer] threatened to shut off services in your home? No 10/15/2023 Humiliation, Afraid, Rape, and Kick questionnair e Answer Date Recorded Within the last year, have y ou been afraid of your partner or ex-partner? No 10/03/2023 Within the last year, have y ou been humiliated or emotionally abused in other ways by your partner or ex-partner? No Within the last year, have y ou been kicked, hit, slapped, or otherwise physically hurt by your partner or ex-partner? No 10/03/2023 Within the last year, have y ou been raped or forced to have any kind of sexual activity by your partner or ex-partner? No 10/03/2023 Social Connection and Isolat ion Panel [NHANES] Answer Date Recorded In a typical week, how many times do you talk on the phone with family, friends, or neighbors? More than three times a week 10/15/2023 How often do you get togethe r with friends or relatives? More than three times a week 10/15/2023 How often do you attend chur or voodoo services? Never 10/15/2023 Do you belong to any clubs o r organizations such as muslim groups, unions, fraternal or athletic groups, or school groups? No 10/15/2023 How often do you attend meet ings of the clubs or organizations you belong to? Never 10/15/2023 Are you , , di vorced, , never , or living with a partner? Never 10/15/2023 AUDIT-C Answer Date Recorded Q1: How often do you have a drink containing alc ohol? Patient declined 10/03/2023 Q2: How many drinks containi ng alcohol do you have on a typical day when you are drinking? Patient declined 10/03/2023 Q3: How often do you have si x or more drinks on one occasion? Patient declined 10/03/2023 Overall Financial Resource Strain (CARDIA) Answe r Date Recorded How hard is it for you to pa y for the very basics like food, housing, medical care, and heating? Somewhat hard 10/15/2023 PHQ-2 Answer Date Recorded PHQ-2 Total Score 4 10/15/2023 [facility]ational Stress Questionnaire Answer Date Recorded Do you feel stress - tense, restless, nervous, or anxious, or unable to sleep at night because your mind is troubled all the time - these days? Only a little 10/03/2023 Exercise Vital Sign Answer Date Recorde d On average, how many days pe r week do you engage in moderate to strenuous exercise (like a brisk walk)? 0 days 10/30/2022 On average, how many minutes do you engage in exercise at this level? 0 min 10/30/2022 Hunger Vital Sign Answer Date Recorded Within the past 12 months, y ou worried that your food would run out before you got the money to buy more. Never true 10/15/19 24 Within the past 12 months, t he food you bought just didn't last and you didn't have money to get more. Never true 10/15/2023 PRAPARE - Transportation Answer Date Re corded In the past 12 months, has l ack of transportation kept you from medical appointments or from getting medications? No 09/21 In the past 12 months, has l ack of transportation kept you from meetings, work, or from getting things needed for daily living? No 10/15/2023 Housing Stability Vital Sign Answer [...] in a penitentiary (including now)? No 10/15/2023 Personal Safety Answer Date Recorded Have you ever been in or are you currently in a harmful physical or emotional relationship or is someone making you feel afraid or unsafe? Denies 10/10/2023 Sex and Gender Information Value Date Recorded Sex Assigned at Not on file Legal Sex Male 11:02 PM PROJECT ESTIMATOR Gender Identity Not on file Sexual Orientation Not on file documented as of this encounter Functional Status * Are you deaf or do you have serious difficulty hearing? Answer Date of Assessment Author No 10/03/2023 12:08 PM Dragan Marques LCSW * Are you blind or do you have serious difficulty seeing, even when wearing glasses? Answer Date of Assessment Author No 10/03/2023 12:08 PM CDDragan Mcintosh LCSW * Do you have serious difficulty walking or climbing stairs? Answer Date of Assessment Author No 10/03/2023 12:08 PM Dragan Marques LCSW * Do you have serious difficulty dressing or bathing? Answer Date of Assessment Author No 10/03/2023 12:08 PM Dragan Marques LCSW * Because of a physical, mental, or emotional condition, do you have serious difficulty doing errandsalone such as visiting the doctor? Answer Date of Assessment Author No 10/03/2023 12:08 PM Dragan Marques LCSW documented as of this encounter Mental Status * Because of a physical, mental, or emotional condition, do you have serious difficulty concentrating, remembering, or making decisions? (5 years old or older) Answer Entry Date Author No 10/03/2023 12:08 PM Dragan Marques LCSW documented in this encounter Plan of Treatment Not on file documented as of this encounter Visit Diagnoses Not on filedocumented in this encounter Care Teams Laundry Washer Relationship Specialty Start Date End Date Mady Sullivan MD [address] [facility] [address] [place] [address] PCP - General Infectious Diseases 10/12/23 No, Physician 10/12/23 Amira Javed LCSW [address] [facility] ([facility]) Mailstop [phone] [place] [address] [facility] Outpatient Brake Rider 10/29/23 10/30/23 documented as of this encounter
--- OUTSIDE RECORDS SUMMARY | 2024-08-10 03:34 | XMS_ITS | Encounter Summary ---
Author Organization [facility] Healthcare Address [address] [place] [address] Care Team Providers Care Flask Pusher Name Role Phone Mady Sullivan MD Primary Care Provider No, Physician Unavailable Reason for Visit * Reason Comments Drug / Alcohol Assessment Encounter Details Date Type Department Care Team (Late st Contact Info) Description 03/18/2024 5:44 PM CDT - 03/19/2024 4:25 AM CDT Emergency [facility] [address] [place] [address] Pramod Ortiz MD [address] [place] [address] Rafa Billings MD [address] [place] [address] Drug abuse (CMS/HCC) (HCC) (Primary Dx); Muscle spasm; Opioid withdrawal (HCC) Discharge Disposition: Discharge to home or self care Social History Tobacco Use Types Packs/Day Years Used Date Smoking Tobacco: Never Smokeless Tobacco: Never [facility] Utilities Answer Date Recorded In the past 12 months has e [employer], gas, oil, or water [employer] threatened to shut off services in [...] week 02/24/2024 How often do you attend chur or episcopalian services? Never 02/24/2024 Do you belong to any clubs o r organizations such as adventist groups, unions, fraternal or athletic groups, or [...] staff should administer the PHQ-9) 4 02/24/2024 [facility] - [...] any time in the past 12 m [facility], were you homeless or living in a correction (including now)? No 02/24/2024 Personal Safety Answer [...] on file Legal Sex Male 11:02 PM [employer]IPPING [employer] Gender Identity Not on file Sexual Orientation Not on file documented as of this encounter Last Filed Vital Signs Vital Sign Reading Time Taken Comments Blood Pressure 116/69 03/19/2024 2:00 AM CDT Pulse 67 03/19/2024 2:00 AM CDT Temperature 36.5 ??C (97.7 ??F) 03/18/2024 8:32 PM CD T Respiratory Rate 20 03/18/2024 8:32 PM CDT Oxygen Saturation 99% 03/19/2024 2:00 AM CDT Inhaled Oxygen Concentration - [...] No 02/24/2024 10:18 AM CDT Manda Hardin PIPE THREADING MACHINE OPERATOR * Do you have serious difficulty walking or climbing stairs? Answer Date of Assessment Author No 02/24/2024 10:18 AM CDT Manda Hardin PIPE THREADING MACHINE OPERATOR * Do you have serious difficulty dressing or bathing? Answer Date of Assessment Author No 02/24/2024 10:18 AM CDT Manda Hardin PIPE THREADING MACHINE OPERATOR * Because of a physical, mental, or emotional condition, do you have serious difficulty doing errandsalone such as visiting the doctor? Answer Date of Assessment Author No 02/24/2024 10:18 AM CDT Manda Hardin, PIPE THREADING MACHINE OPERATOR documented as of this encounter Mental Status * Because of a physical, mental, or emotional condition, do you have serious difficulty concentrating, remembering, or making decisions? (5 years old or older) Answer Entry Date Author No 02/24/2024 10:18 AM CDT Manda Hardin PIPE THREADING MACHINE OPERATOR documented in this encounter Discharge Instructions * Discharge Instructions* Jr Calabrese MD - 03/18/2024 8:23 PM CDT You have been evaluated in the Emergency Department today for intoxication of multiple substance. You have been observed in the Emergency Department and are now able to walk on your own and are tolerating fluids/food. Please follow up with your primary care physician. Return to the Emergency Department if you experience shaking, seizures, palpitations, inability to keep down fluids, worsening or uncontrolled pain, confusion, or for any other concerning symptoms. documented in this encounter [...] 02/08/2024 04/14/2024 documented as of this encounter Discharge Disposition Disposition Code Departure Means Destination Comment s Discharge to home or self care documented in this encounter Consult Notes * Divya Wiley LCSW - 03/19/2024 3:45 AM CDT AVTAR consulted by MD regarding [facility]. Patient met with AVTAR Chambers earlier today and plan was for discharge to [facility] with [facility] follow up however patient required additional medical workup. Patient is not appropriate for discharge per MD. AVTAR spoke with patient who is agreeable to go to [facility]. AVTAR spoke with Lonnie at [facility] who confirms that patient can return. Facility will arrange transportation to [address] [place] [address]. No further needs disclosed. Divya Wiley LCSW Roustabout Pusher 03/19/2024 * Trish Ng MSW - 03/18/2024 7:37 PM CDT EDSW consulted for [facility] referral. This SW familiar with pt from prior admission & met with pt in focused care room with providers present. PA reported no further medical workup needed & thatpt was stable for d/c, pending [facility] referral and potential correction placement. With pt's verbal consent, AVTAR placed [facility] referral with pt assigned varsity baseball coach Philly (#[phone]). AVTAR and Philly discussed potential for pt to discharge to [facility] due to current intoxication, which pt is agreeable to. Philly confirmed with [facility] staff member, Dorothy, pt is accepted to present withfacility order Uber. AVTAR then attempted to assist pt into Uber; however, noted pt to have significant sweating, twitchy movements, vomiting, & appearing overall uncomfortable. Additionally, AVTAR notes when transSW notified PA of pt's presentation. SW contacted [facility] & notified Morganto cancel Uber at this time. SW remains available to provide support pending further medical workup. Trish Ng LMSW documented in this encounter ED Notes * Shilpa Gates RN - 03/18/2024 9:03 PM CDT Bed: ED1-16 Expected date: 03/18/24 Expected time: 8:43 PM Means of arrival: Comments: [facility] 1 patient Shilpa Gates RN 03/18/242102 * Fernando Toney PA - 03/18/2024 6:47 PM CDT HPI Chief Complaint Patient presents with ??? Drug / Alcohol Assessment 28 yo male, HIV+ and hx of fentanyl and meth abuse, c/o withdraw from drugs. Pt c/o nausea, chill, abdominal pain. Pt asking to do EPIC . Pt states he wants inpatient detox for stabilization . History provided by: Patient educational interpreter used: No Patient History: Past Medical History: Diagnosis Date ??? Borderline personality disorder (CMS/HCC) (HCC) ??? Depression with suicidal ideation ??? HIV (human immunodeficiency virus infection) (HCC) ??? Methamphetamine use disorder, moderate, in early remission (HCC) ??? Neuropathy (CMS/HCC) ??? PTSD (post-traumatic stress disorder) ??? Syphilis (acquired) Rx'd with 3 IM doses of Penicillni per patient Past Surgical History: Procedure Laterality Date ??? LUMBAR PUNCTURE WO INJECTION, DIAGNOSTIC N/A 10/12/2023 Family History Problem Relation Age of Onset ??? Hypertension Maternal Grandmother ??? Diabetes type II Maternal Grandmother Social History Tobacco Use ??? Smoking status: Never ??? Smokeless tobacco: Never Vaping Use ??? Vaping status: Never Used Substance and Sexual Activity ??? Alcohol use: Not on file ??? Drug use: Not Currently Types: Methamphetamines, Alcohol, Marijuana ??? Sexual activity: Defer No Known Allergies Review of Systems Review of Systems Constitutional: Positive for chills. Negative for fever. HENT: Negative for ear pain and sore throat. Eyes: Negative for pain and visual disturbance. Respiratory: Negative for cough and shortness of breath. Cardiovascular: Negative for chest pain and palpitations. Gastrointestinal: Positive for abdominal pain and nausea. Negative for vomiting. Genitourinary: Negative for dysuria and hematuria. Musculoskeletal: Negative for arthralgias and back pain. Skin: Negative for color change and rash. Neurological: Negative for seizures and syncope. All other systems reviewed and are negative. Physical Exam ED Triage Vitals [03/18/24 1429] Temp Pulse Resp BP SpO2 36.3 ??C (97.3 ??F) 54 14 132/67 98 % Temp src Heart Rate Source Patient Position BP Location FiO2 (%) Oral -- -- -- -- Height Height Method Weight Weight Method -- -- -- -- Physical Exam Vitals and nursing note reviewed. Constitutional: Appearance: Normal appearance. He is normal weight. HENT: Head: Normocephalic and atraumatic. Nose: Nose normal. Mouth/Throat: Mouth: Mucous membranes are moist. Eyes: Extraocular Movements: Extraocular movements intact. Cardiovascular: Rate and Rhythm: Normal rate. Pulses: Normal pulses. Pulmonary: Effort: Pulmonary effort is normal. Breath sounds: Normal breath sounds. Abdominal: General: Abdomen is flat. Palpations: Abdomen is soft. There is no mass. Tenderness: There is no abdominal tenderness. Hernia: No hernia is present. Musculoskeletal: General: Normal range of motion. Cervical back: Normal range of motion. Comments: Pt is twitching and very spastic. Skin: General: Skin is warm and dry. Neurological: General: No focal deficit present. Mental Status: He is alert and oriented to person, place, and time. Gait: Gait abnormal. Psychiatric: Comments: Pt very anxious and flat affect Labs Reviewed - No data to display No orders to display MDM Medical Decision Making 28 yo male with hx of drug abuse, here for inpatient stabilization and EPIC . Pt has no other complaints. On exam pt is anxious, twitching, spastic and flat affect. No work up needed. Social work got pt a bed at the [facility] for acute intoxication. EPIC varsity baseball coach has been assigned to the pt and will connect with him in the morning. ED Course as of 03/19/24 0352 Time: 03/18 1925 Comment: Social work came to talk to the pt and has a plan for what she is going to look for and will be back when she has some info. By: Cristina Rodriguez PA Time: 03/18 2035 Comment: As pt was waiting for lyft to [facility] his mental status and spasticity got worse, pt not really able to ambulate. Social work does not think he will be accepted at the [facility]. She states she knows him and this is not his usual presentation and she is concerned. Will order medical work-up. By: Fernando Toney PA Time: 03/18 2315 Comment: Sign out Dr. Diana YOUSIF. By: Rafa Billings MD Time: 03/19 2819 Comment: On reassessment, patient was sleeping comfortably in bed. He was easily arousable. Vital signs have been stable. Patient was able to engage in appropriate conversation. He was able to ambulate without significant difficulty. Patient is additionally tolerating p.o.. Does have jerky movements that have been described as spasms. He denies any pain associated with these spasms. Presently, patient does not have signs of clinical intoxication. I discussed the options for Suboxone with the patient. Unfortunately at this time, do not believe the patient to be in florid opioid withdrawal. Patient is unlikely to benefit from Suboxone without appropriate supervision. Patient is appropriate for discharge. By: Jr Calabrese MD Time: 03/19 050 Comment: After discussion with social work, recommendation is for patient to be discharged to the [facility] where he will be able to receive resources regarding detox from opioids and other drugs. By: Jr Calabrese MD Final diagnoses: Drug abuse (CMS/HCC) (HCC) Fernando Toney PA 03/18/242024 Fernando Toney PA 03/18/242049 * Catalina Richards RN - 03/18/2024 5:44 PM CDT Bed: [facility] Expected date: 03/18/24 Expected time: Means of arrival: Comments: Phil Chase Kara Brennan, RN 03/18/24 8092 * Chas Harrington RN - 03/18/2024 2:26 PM CDT Patient coming to the ED to get into fentanyl/meth detox program. Patient last used yesterday. Patient appears to have periods of stimulation with frequent tics, followed by being tired. Patient has not been through a detox program before and wants to speak to social work. documented in this encounter Miscellaneous Notes * ED Re-evaluation Note - Jr Calabrese MD - 03/18/2024 11:11 PM CDT ED Re-evaluation TRANSITION OF CARE: I have reviewed all pertinent vital signs, allergies, and history available in the chart. I, Kaelyn Calabrese MD, am taking signout from Dr. Christy (Resident). Summary: 28 y.o. male past medical history of HIV, transverse myelitis with right lower extremity residual deficits, borderline personality disorder, methamphetamine use, fentanyl use disorder who ispresenting to the ED for evaluation of withdrawals. Patient notes that he wants to be in a detox program. States that his last use of fentanyl was approximately 3-4 days ago. Last use of meth was last night. States that he feels like he is withdrawing. Notes that he has abdominal pain with nausea and vomiting. Has been diaphoretic but is not currently. He is having muscle spasms in upper and lower extremities. Pending: Dispo: Likely discharge ED Course as of 03/19/24 0352 Time: 03/18 1925 Comment: Social work came to talk to the pt and has a plan for what she is going to look for and will be back when she has some info. By: Cristina Rodriguez PA Time: 03/18 2035 Comment: As pt was waiting for lyft to [facility] his mental status and spasticity got worse, pt not really able to ambulate. Social work does not think he will be accepted at the [facility]. She states she knows him and this is not his usual presentation and she is concerned. Will order medical work-up. By: Fernando Toney PA Time: 03/18 2315 Comment: Sign out Dr. Ortiz supportive [facility] OUD. By: Rafa Billings MD Time: 03/19 3512 Comment: On reassessment, patient was sleeping comfortably in bed. He was easily arousable. Vital signs have been stable. Patient was able to engage in appropriate conversation. He was able to ambulate without significant difficulty. Patient is additionally tolerating p.o.. Does have jerky movements that have been described as spasms. He denies any pain associated with these spasms. Presently, patient does not have signs of clinical intoxication. I discussed the options for Suboxone with the patient. Unfortunately at this time, do not believe the patient to be in florid opioid withdrawal. Patient is unlikely to benefit from Suboxone without appropriate supervision. Patient is appropriate for discharge. By: Jr Calabrese MD Time: 03/19 7198 Comment: After discussion with social work, recommendation is for patient to be discharged to the [facility] where he will be able to receive resources regarding detox from opioids and other drugs. By: Jr Calabrese MD Yayah, Faisal Mudasiru, MD Resident 03/23/24 0732 * ED Procedure Note - Pramod Ortiz MD - 03/18/2024 9:26 PM CDTAssociated Order(s): ECG 12 lead Procedure ECG 12 lead Date/Time: 03/18/2024 9:26 PM Performed by: Pramod Ortiz MD Authorized by: Cuco Christy MD Rate: ECG rate: Rate 55, narrow complex, regular, sinus, no stemi. Pramod Ortiz MD 03/18/242126 * ED Re-evaluation Note - Cuco Christy MD - 03/18/2024 8:49 PM CDT ED Re-evaluation TRANSITION OF CARE: I, Cuco Christy MD, am taking signout. I have reviewed all pertinent vital signs, allergies, and history available in the chart. Summary: 28 y.o. male with past medical history of HIV, transverse myelitis with right lower extremity residual deficits, borderline personality disorder, methamphetamine use, fentanyl use disorder who is presenting to the ED for evaluation of withdrawals. Patient notes that he wants to be in a detox program. States that his last use of fentanyl was approximately 3-4 days ago. Last use of meth was last night. States that he feels like he is withdrawing. Notes that he has abdominal pain with nausea and vomiting. Has been diaphoretic but is not currently. He is having muscle spasms in upper andlower extremities. On exam, patient has normal heart sounds, normal lung sounds bilaterally. Abdomen is mildly tender diffusely. There was no signs of trauma on exam. No tenderness along midline spine. 5/5 strength in security shift supervisor, arm flexion/extension, shoulder flexion/extension bilaterally 5/5 strength in hip flexion/extension, knee flexion/extension 5/5 strength in foot dorsi and plantar flexion in the left and 4/5 on the right foot Reflexes are 2+ bilateral patella, Achilles bilaterally No clonus on lower or upper extremities No neck rigidity. Differential at this time includes opioid withdrawal syndrome, polysubstance use, or metabolic abnormalities. We will check basic labs. We will add on abdominal labs for the mild diffuse abdominal tenderness. It is not severe enough on exam to require CT of abdomen and pelvis at this time. We will r eassess based on initial labs. We will get a lactate to look for possible early sepsis. We will geta head CT due to altered mental status. This will assess for intracranial hemorrhage or mass. Low concern for alcohol withdrawal syndrome as patient is not tachycardic, does not appear anxious or hyperactive, no upper extremity tremor or tongue fasciculations. Pending: Labs Dispo: Pending reassessment Cuco Christy MD Resident 03/18/24 7829 documented in this encounter Plan of Treatment Pending Results Name Type Priority Associated Diagnoses Date /Time Magnesium Lab STAT 03/18/2024 10: 13 PM CDT Phosphorus Lab STAT 03/18/2024 10: 13 PM CDT Scheduled Orders Name Type Priority Associated Diagnoses Orde r Schedule Urinalysis reflex to microscopic and culture Urine Microbiology STAT STAT for 1 Occurrences starting 03/18/2024 until 03/18/2024 Magnesium Lab STAT Once for 1 Occurrences starting 03/18/2024 until 03/18/2024 Phosphorus Lab STAT Once for 1 Occurrences starting 03/18/2024 until 03/18/2024 documented as of this encounter Procedures Procedure Name Priority Date/Time Associated Diagnosis Comments CT HEAD WO CONTRAST ED Urgent/IP Urgent 03/18/2024 11:57 PM CDT SEPSIS LACTATE WITH REFLEX STAT 03/18/2024 10:13 PM CDT EGFR STAT 03/18/2024 10:13 PM CDT DIFFERENTIAL AUTO STAT 03/18/2024 10: 13 PM CDT THYROID FUNCTION CASCADE STAT 03/18/2024 10:13 PM CDT CBC WITH AUTO DIFFERENTIAL STAT 03/18/2024 10:13 PM CDT T-HELPER CELLS (CD4) COUNT STAT 03/18/2024 10:13 PM CDT PHOSPHORUS STAT 03/18/2024 10:13 PM CDT MAGNESIUM STAT 03/18/2024 10:13 PM CDT LIPASE STAT 03/18/2024 10:13 PM CDT ETHANOL STAT 03/18/2024 10:13 PM CDT HEPATIC FUNCTION PANEL STAT 03/18/2024 10:13 PM CDT BASIC METABOLIC PANEL STAT 03/18/2024 10:13 PM CDT ECG 12-LEAD STAT 03/18/2024 9:26 PM CDT documented in this encounter Results * CT Head WO Contrast (03/18/2024 11:57 PM CDT) Anatomical Region Laterality Modality Head and Neck N/A Computed Tomogra phy 03/19/2024 1:09 AM CDT Impressions 03/19/2024 10:23 AM CDT 1. ??No acute intracranial hemorrhage or large edematous infarct. 2. ??Unchanged diffuse cerebral atrophy with associated ex vacuo dilation of the ventricles which may be related to sequelae of chronic HIV infection. Dictated by: Dannie Gerber MD The radiology attending physician has personally reviewed this study, and had reviewed and/or edited this written report and agrees with it. Electronically signed by: Rosa Yost M.D., Ph.D. Narrative 03/19/2024 10:23 AM CDT EXAMINATION: CT head without contrast HISTORY: Altered [...] the paranasal sinuses. No fractures are identified. Procedure Note Rosa Yost MD PhD - 03/19/2024 EXAMINATION: CT head without contrast HISTORY: Altered [...] the paranasal sinuses. No fractures are identified. IMPRESSION: 1. No acute intracranial hemorrhage or large [...] Electronically signed by: Rosa Yost M.D., Ph.D. Cuco Christy MD IMG CT PROCEDURES Fi nal Result * Magnesium (03/18/2024 10:13 PM CDT) Magnesium 2.2 1.4 - 2.5 mg/dL Blood 03/18/2024 10:1 3 PM CDT 03/18/2024 10:23 PM CDT Rafa Billings MD LAB BLOOD ORDERA BLES Final Result [facility] [place] [address] * Phosphorus (03/18/2024 10:13 PM CDT) Phosphorus, pl 2.9 2.3 - 4.5 mg/dL Blood 03/18/2024 10:1 3 PM CDT 03/18/2024 10:23 PM CDT Rafa Billings MD LAB BLOOD ORDERA BLES Final Result [facility] [place] [address] * eGFR (03/18/2024 10:13 PM CDT) Pathologist [facility] eGFR >90 >=60 mL/min/1. 73 m2 Comment: [...] interpretive data was last reviewed 2021. Blood 03/18/2024 10:1 3 PM CDT 03/18/2024 10:23 PM CDT us Cuco Christy MD LAB BLOOD ORDERABLES Final Result [facility] [place] [address] * Differential, auto (03/18/2024 10:13 PM CDT) Neutrophil abs 1.5 1.5 - 6.5 K/cumm Imm gran abs 0.0 0.0 - 0.1 K/cumm [facility] Lymphocyte abs 1.5 0.8 - 3.3 K/cumm [facility] Monocyte abs 0.3 0.2 - 0.8 K/cumm [facility] Eosinophil abs 0.2 0.0 - 0.5 K/cumm [facility] Basophil abs 0.0 0.0 - 0.1 K/cumm [facility] Neutrophil pct 42.2 % [facility] Comment: Interpretive Data Percent cell count reference ranges are not reported, since discordance with absolute values may lead to misinterpretation of CBC data. Current Interpretive Data was last revised on 2017. Imm gran pct 0.0 % [facility] Comment: Interpretive Data Percent cell count reference ranges are not reported, since discordance with absolute values may lead to misinterpretation of CBC data. Current Interpretive Data was last revised on 2017. Lymphocyte pct 41.9 % [facility] Comment: Interpretive Data Percent cell count reference ranges are not reported, since discordance with absolute values may lead to misinterpretation of CBC data. Current Interpretive Data was last revised on 2017. Monocyte pct 9.1 % [facility] Comment: Interpretive Data Percent cell count reference ranges are not reported, since discordance with absolute values may lead to misinterpretation of CBC data. Current Interpretive Data was last revised on 2017. Eosinophil pct 6.2 % [facility] Comment: Interpretive Data Percent cell count reference ranges are not reported, since discordance with absolute values may lead to misinterpretation of CBC data. Current Interpretive Data was last revised on 2017. Basophil pct 0.6 % [facility] Comment: Interpretive Data Percent cell count reference ranges are not reported, since discordance with absolute values may lead to misinterpretation of CBC data. Current Interpretive Data was last revised on 2017. Blood 03/18/2024 10:1 3 PM CDT 03/18/2024 10:18 PM CDT Cuco Christy MD LAB BLOOD ORDERABLES Final Result Performing Organization Address [facility] Co de Phone Number [facility] [place] [address] * (ABNORMAL) T-helper cells (CD4) count (03/18/2024 10:13 PM CDT) CD4 pct 17(L) 31 - 64 % CD4 Absolute 230(L) 365 - 1,294 cells/mcL [facility] Blood 03/18/2024 10:1 3 PM CDT 03/18/2024 10:18 PM CDT Cuco Christy MD LAB BLOOD ORDERABLES Final Result Performing Organization Address [facility] de Phone Number [facility] [place] [address] * Thyroid Function Cody (03/18/2024 10:13 PM CDT) TSH 0.31 0.30 - 4.20 mcIUnit/mL Blood 03/18/2024 10:1 3 PM CDT 03/18/2024 10:23 PM CDT Cuco Christy MD LAB BLOOD ORDERABLES Final Result Performing Organization Address [facility] Co de Phone Number [facility] [place] [address] * Sepsis Lactate w/ Reflex (03/18/2024 10:13 PM CDT) Pathologist [facility] Sepsis Lactate 1.3 0.7 - 2.0 mmol/L Blood 03/18/2024 10:1 3 PM CDT 03/18/2024 10:17 PM CDT Cuco Christy MD LAB BLOOD ORDERABLES Final Result Performing Organization Address City/[facility]/ZIP Co de Phone Number [facility] [place] [address] * Lipase (03/18/2024 10:13 PM CDT) [facility] Lipase 36 10 - 99 Units/L Blood 03/18/2024 10:1 3 PM CDT 03/18/2024 10:23 PM CDT Cuco Christy MD LAB BLOOD ORDERABLES Final Result Performing Organization Address [facility] de Phone Number [facility] [place] [address] * (ABNORMAL) Hepatic function panel (03/18/2024 10:13 PM CDT) Pathologist [facility] Bilirubin, total 0.3 0.1 - 1.2 mg/dL Bilirubin, direct <0.2 0.1 - 0.3 mg/dL [facility] Protein, pl 8.1 6.5 - 8.5 g/dL [facility] Albumin 3.8 3.5 - 5.0 g/dL [facility] Alk phos 77 40 - 130 Units/L [facility] ALT 30 7 - 55 Units/L [facility] AST 63(H) 10 - 50 Units/L [facility] Comment:Hemolyzed; result ma y be falsely elevated Blood 03/18/2024 10:1 3 PM CDT 03/18/2024 10:23 PM CDT Cuco Christy MD LAB BLOOD ORDERABLES Final Result Performing Organization Address City/[facility]/ZIP Co de Phone Number [facility] [place] [address] * Basic metabolic panel (03/18/2024 10:13 PM CDT) [facility] Sodium 139 135 - 145 mmol/L Potassium, pl 4.2 3.3 - 4.9 mmol/L [facility] Comment:Hemolyzed; Potassium value may be falsely elevated by as much as 0.3-0.5 mmol/L. Suggest redraw and reanalysis. Chloride 104 97 - 110 mmol/L [facility] CO2 26 22 - 32 mmol/L [facility] Anion gap 9 2 - 15 mmol/L [facility] BUN 14 6 - 25 mg/dL [facility] Creatinine 0.91 0.80 - 1.30 mg/dL [facility] Glucose 110 70 - 199 mg/dL [facility] Comment: Interpretive Data Fasting glucose >/= [...] interpretive data was last revised 2022. Calcium 9.2 8.5 - 10.3 mg/dL [facility] Blood 03/18/2024 10:1 3 PM CDT 03/18/2024 10:23 PM CDT Cuco Christy MD LAB BLOOD ORDERABLES Final Result Performing Organization Address City/[facility]/ZIP Co de Phone Number [facility] [place] [address] * Ethanol (03/18/2024 10:13 PM CDT) [facility] Ethanol <10 <=10 mg/dL Comment: Interpretive Data Legal limit of intoxication > or = 80 mg/dL Levels > or = 400 mg/dL are potentially TOXIC. Current interpretive data was last revised on 2018. Blood 03/18/2024 10:1 3 PM CDT 03/18/2024 10:23 PM CDT Cuco Christy MD LAB BLOOD ORDERABLES Final Result Performing Organization Address [facility] Co de Phone Number [facility] [place] [address] * (ABNORMAL) CBC with auto differential (03/18/2024 10:13 PM CDT) [facility] WBC 3.5(L) 3.8 - 9.9 K/cumm Hgb 13.6 13.0 - 17.5 g/dL [facility] Hct 42.6 38.9 - 50.3 % [facility] Plt 321 150 - 400 K/cumm [facility] MPV 10.1 9.1 - 12.3 fL [facility] RBC 5.11 4.30 - 5.80 M/cumm [facility] MCV 83.4 81.3 - 96.4 fL [facility] MCH 26.6(L) 27.1 - 33.3 pg [facility] MCHC 31.9(L) 32.3 - 35.7 g/dL [facility] RDW CV 14.8 11.1 - 14.9 % [facility] RDW SD 44.8 35.7 - 48.1 fL [facility] NRBC abs 0.00 0.00 - 0.01 K/cumm [facility] Blood 03/18/2024 10:1 3 PM CDT 03/18/2024 10:18 PM CDT Cuco Christy MD LAB BLOOD ORDERABLES Final Result Performing Organization Address [facility]/ZIP Co de Phone Number [facility] [place] [address] * ECG 12-LEAD (03/18/2024 9:26 PM CDT) Narrative [facility] - 03/18/2024 9:26 PM CDT Pramod Ortiz MD ? 03/18/2024 ??9:27 PM ECG 12 lead Date/Time: 03/18/2024 9:26 PM Performed by: Pramod Ortiz MD Authorized by: Cuco Christy MD ?? Rate: ??ECG rate: ??Rate 55, narrow complex, regular, sinus, no stemi. Procedure Note Pramod Ortiz MD - 03/18/2024 9:26 PM CDT Procedure ECG 12 lead Date/Time: 03/18/2024 9:26 PM Performed by: Pramod Ortiz MD Authorized by: Cuco Christy MD Rate: ECG rate: Rate 55, narrow complex, regular, sinus, no stemi. Pramod Ortiz MD 03/18/242126 us Cuco Christy MD ECG ORDERABLES Antonina l Result [facility] documented in this encounter Visit Diagnoses Diagnosis Drug abuse (CMS/HCC) (HCC)- Primary Other, mixed, or unspecified nondependent drug abuse, unspecified Muscle spasm Spasm of muscle Opioid withdrawal (HCC) Drug withdrawal documented in this encounter Administered Medications Inactive Administered Medications - up to 3 most recent administrations Medication Order MAR Action Action Date Dose Rate Site diazePAM (VALIUM) injection 5 mg 5 mg, intravenous, Administer over 1 Minutes, Once, On Sun03/19/24 at 0237, For 1 dose Given 03/19/2024 3:54 AM CDT 5 mg hydrOXYzine (ATARAX) tablet 25 mg 25 mg, oral, Once, On Sun03/18/24 at 2155, For 1 dose Given 03/18/2024 10:06 PM CDT 25 mg ondansetron (ZOFRAN) injection 4 mg 4 mg, intravenous, Administer over 2 Minutes, Once, On Sun03/18/24 at 215, For 1 dose Given 03/18/2024 10:08 PM CDT 4 mg documented in this encounter Active and Recently Administered Medications Times are shown in CDT. Scheduled Medication Order 03/17/2024 03/18/2024 03/19/2024 diazePAM (VALIUM) injection 5 mg (COMPLETED) 5 mg, intravenous, Administer over 1 Minutes, Once, On Sun03/19/24 at 0237, For 1 dose 0354 (Given - Provid er: Jaci Crowley RN) hydrOXYzine (ATARAX) tablet 25 mg (COMPLETED) 25 mg, oral, Once, On Sun03/18/24 at 2155, For 1 dose 2206 (Given - Provider: Jaci Crowley RN) ondansetron (ZOFRAN) injection 4 mg (COMPLETED) 4 mg, intravenous, Administer over 2 Minutes, Once, On Sun03/18/24 at 2155, For 1 dose 2208 (Given - Provider: Jaci Crowley RN) documented in this encounter Orders Lab Orders Without Results Count Last Ordered D ate First Ordered Date MAGNESIUM 03/18/2024 PHOSPHORUS 1 03/18/2024 documented in this encounter Care Teams Flask Pusher Relationship Specialty Start Date End Date Mady [place] MD [address] [address] PCP - General Infectious Diseases 10/12/23 No, Physician 10/12/23 documented as of this encounter
--- OUTSIDE RECORDS SUMMARY | 2024-08-10 03:34 | XMS_ITS | Encounter Summary ---
Author Organization [facility] Healthcare Address [address] [place] [address] Care Team Providers Care Assistant Inventory Manager Name Role Phone Mady [place] MD Primary Care Provider No, Physician Unavailable Reason for Visit * Reason Onset Date Comments Dental Pain 04/08/2024 Periapical denta l abscessDecay into pulp Encounter Details Date Type Department Care Team (Late st Contact Info) Description 04/08/[address] [facility] Surgeon [address] [place] [address] Calvin Dumont DDS [id number] [place] [address] Dental Pain (Periapical dental abscess/Decay into pulp) Social History Tobacco Use Types Packs/Day Years Used Date Smoking Tobacco: Former Cigarettes Passive Smoke Exposure: Current Smokeless Tobacco: Never [facility] Utilities Answer Date Recorded In the past 12 months has [facility] [employer], gas, oil, or water [employer] threatened to shut off services in your [...] How often do you attend chur or zoroastrian services? Never 04/07/2024 Do you belong to any clubs o r organizations such as jain groups, unions, fraternal or athletic groups, or [...] any time in the past 12 m [facility], were you homeless or living in a chcf (including now)? 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 Answer Date of Assessment Author No 02/24/2024 10:18 AM CDT Manda Hardin, STAFF EDITOR * Are you blind or do you have serious difficulty seeing, even when wearing glasses? Answer Date of Assessment Author No 02/24/2024 10:18 AM CDManda Ibrahim, STAFF EDITOR * Do you have serious difficulty walking or climbing stairs? Answer Date of Assessment Author No 02/24/2024 10:18 AM CDT Manda Hardin, STAFF EDITOR * Do you have serious difficulty dressing or bathing? Answer Date of Assessment Author No 02/24/2024 10:18 AM CDT Manda Hardin, STAFF EDITOR * Because of a physical, mental, or emotional condition, do you have serious difficulty doing errandsalone such as visiting the doctor? Answer Date of Assessment Author No 02/24/2024 10:18 AM CDManda Ibrahim AIDE documented as of this encounter Mental Status * Because of a physical, mental, or emotional condition, do you have serious difficulty concentrating, remembering, or making decisions? (5 years old or older) Answer Entry Date Author No 02/24/2024 10:18 AM CDManda Ibrahim MSW documented in this encounter Progress Notes * [place] Dumont DDS - 04/08/2024 11:28 AM CDT Images from the original note were not included. Surgery Record Office Patient Name: Phil Chase Date 04/08/2024 : Date Of : 1995 NPO: Yes ASA: ASA 2 - Patient with mild systemic disease with no functional limitations Allergies: No Known Allergies Medications: No current facility-administered medications for this visit. No current outpatient medications on file. Facility-Administered Medications Ordered in Other Visits Medication Dose Route Frequency Provider Last Rate Last Admin acetaminophen (TYLENOL) tablet 650 mg 650 mg oral Q6H PRN Con Lewis MD 650 mg at 04/07/242012 Or HYDROcodone-acetaminophen (NORCO) 5-325 mg per tablet 1 tablet 1 tablet oral Q4H PRN Con [place] MD ampicillin-sulbactam (UNASYN) 3 g/110 mL in sodium chloride 0.9% (premix) 3 g 3 g intravenous Q6H Brandy Denton MD 0 mL/hr at 04/04/24 1233 3 g at 04/08/24 0746 ARIPiprazole (ABILIFY) tablet 10 mg 10 mg oral Daily Martha Haynes MD 10 mg at 04/08/24 0843 howmlyxnuaq-bvipqslzixxbz-mqngjlqel (BIKTARVY) 50-200-25 mg per tablet 1 tablet 1 tablet oral DailyBrandy Beyer MD 1 tablet at 04/08/24 0843 Carrier Fluids for Secondary Infusion - 0.9% Sodium Chloride 30 mL intravenous PRLudmila Christiansen MD doxepin (SINEquan) capsule 25 mg 25 [...] tablet 4 mg 4 mg oral Q6H PRBrandy Christiansen MD Or ondansetron (ZOFRAN) injection 4 mg 4 mg intravenous Q6H PRBrandy Christiansen MD ramelteon (ROZEREM) tablet 8 mg 8 mg oral Nightly PRN Zarina Menon MD 8 mg at 04/07/242012 sodium chloride 0.9% flush 0.5-20 mL 0.5-20 mL intra-catheter Q8H Brandy Denton MD10 mL at 04/08/24 0535 sodium chloride 0.9% flush 0.5-20 mL 0.5-20 mL intra-catheter PRN Brandy Beyer MD Weight: 77 kg Height: 72 in BMI: 24 Maltampati Classification 1 [] 2 [x] 3 [] 4 [] History I Diagnosis: Patient is a 28 y/o male with past medical history of meth use disorder and borderline personality disorder, HIV with last CD4 count of 230 (03/18/24) who presented to ED with SI and with facial swelling. Patient comes in with suicide ideation with plan to kill himself of firearm. Patient says that he initially came to [place] in order to go to graduate school, however he began using meth and got off track. Patient reports that he has been having swelling to his right lower face, has a broken tooth there.He had right buccal space I & D this admission and no presents for treating the dental source of infection. Limited oral exam reveals moderate right buccal swelling with tenderness. Intra oral exam Missing teeth # 1,4,16,17,32 Decay or residual roots # 7,12,13,14,19,28,30.right buccal swelling. Panorex teeth # 28 & 30 with residual roots and apical bone loss Diagnosis: # 28 & 30 with acute apical abscess secondary decay into pulp and also buccal space abscess. Informed Consent: The diagnosis and treatment plan and surgical risks were discussed with the patient. The patient understands and consents to the procedure and signed written consent. Extraction of teeth # 28 & 30. Time Out: 10:45 VIS: Paper Start Time: 10:50 Finish: 11;15 Procedure: Surgical extraction of teeth # 28 & 30 with buccal flap, bone removal and elevate teeth, smoothed bone, curetted granulation tissue reposition flap and closed with 3-0 chromic gut sutures. Anesthesia: Local Anesthesia:2% Xylocaine 1-100,000 Epi 10.0 cc N20/02: Nasal Faria Prescriptions: Medications per primary managing team on floor. COMPLICATIONS: none Laundry Agent: Monica POI: Written and Verbal to responsible alliance party. Oral Surgery Post Operative to floor Discharge Instructions The patient is being sent floor with gauze. Please DO NOT eat or drink anything extremely hot for 24 hours after surgery as this will increase the bleeding. If bleeding occurs, place gauze softly over the areas that was performed and softly bite down until the bleeding stops. Bleeding may last a few hours after surgery and may require several changes of gauze. If the bleeding persists or becomes heavier, a moist (not saturated) black tea bag may be used in place of the gauze to help stop the bleeding. You may return to your regular diet [...] Oral Surgeon by calling the office at [phone]. No post operative visit is scheduled at this time Calvin Dumont DDS 04/08/2024 11:28 AM documented in this encounter Plan of Treatment Not on file documented as of this encounter Visit Diagnoses Not on filedocumented in this encounter Additional Health Concerns Infection Onset Date Last Indicated Resolved Time Ring Surveillance 04/06/2024 04/06/2024 04/13/2024 3:05 AM CDT documented as of this encounter Care Teams Assistant Inventory Manager Relationship Specialty Start Date End Date Mady [place] MD [address] [address] PCP - General Infectious Diseases 10/12/23 No, Physician 10/12/23 documented as of this encounter
--- OUTSIDE RECORDS SUMMARY | 2024-08-10 03:34 | XMS_ITS | Encounter Summary ---
Author Organization [facility] Healthcare Address [address] [place] [address] Care Team Providers Care Tour Coordinator Name Role Phone Mady [place] MD Primary Care Provider No, Physician Unavailable Reason for Visit * Reason Comments Unsuccessful Phone Call 2 Encounter Details Date Type Department Care Team (Late st Contact Info) Description 10/31/2023 SHOP/CHAP Initial Outreach [facility] OP CASE MANAGEMENT [address] [place] [id number] Amira Javed, [facility] [address] [facility] ([facility]) Mailstop [phone] [place] [address] Social History Tobacco Use Types Packs/Day Years Used Date Smoking Tobacco: Never Smokeless Tobacco: Never [facility] Utilities Answer Date Recorded In the past 12 months has [facility] electric, gas, oil, or water [employer] threatened to shut off services in your [...] 10/15/2023 How often do you attend chur ch or rastafari services? Never 10/15/2023 Do you belong to any clubs o r organizations such as gnosticism groups, unions, fraternal or athletic groups, or [...] Date Recorded PHQ-2 Total Score 4 10/15/2023 [facility] Answer Date [...] in a fpc (including now)? No 10/15/2023 Personal Safety Answer Date Recorded Have you ever been in or are you currently in a harmful physical or emotional relationship or is someone making you feel afraid or unsafe? Denies 10/10/2023 Sex and Gender Information Value Date Recorded Sex Assigned at Not on file Legal Sex Male 11:02 PM [employer] Gender Identity Not on file Sexual Orientation [...] Entry Date Author No 10/03/2023 12:08 PM CDT Dragan Montano LCSW documented in this encounter Progress Notes * Amira Javed LCSW - 10/31/2023 9:41 AM CDT Per pt's mother, no way to contact pt. SHOP episode will be closed. documented in this encounter Plan of Treatment Not on file documented as of this encounter Visit Diagnoses Not on filedocumented in this encounter Care Teams Tour Coordinator Relationship Specialty Start Date End Date Mady [place] MD [address] [address] PCP - General Infectious Diseases 10/12/23 No, Physician 10/12/23 documented as of this encounter
--- OUTSIDE RECORDS SUMMARY | 2024-08-10 03:34 | XMS_ITS | Encounter Summary ---
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 duplicate chart - Charts are marked for Merge Results of XR and CT performed today were found in chart with : EXAMINATION: XR HIP RIGHT 2 OR 3 VIEWS W PELVIS DATE: 03/02/2024 11:05 AM HISTORY: Hip pain, acute, fracture suspected, initial exam (Age => 48y) COMPARISON: 02/23/2024. IMPRESSION: No acute fracture or subluxation is seen. No significant degenerative changes. Electronically signed by: Tanja Thompson M.D. EXAMINATION: CT cervical spine without contrast DATE: 03/02/2024 11:10 AM HISTORY: Neck trauma, dangerous injury mechanism (Age 16-64y) TECHNIQUE: Standard CT cervical spine protocol without contrast with coronal and sagittal reformatted images. COMPARISON: 08/01/2017 FINDINGS: There is straightening with mild reversal of the cervical lordosis. There is good vertebral body height and alignment. Mild loss of disc height is seen at C6-C7. Atlantoaxial alignment and craniocervical alignment are preserved. The dens is intact. There is no acute fracture or subluxation. No significant degenerative changes. IMPRESSION: 1. No acute cervical fracture. Electronically signed by: Tanja Thompson M.D. By: Mishel Wallace PA Time: 03/02 1634 Comment: Patient is medically cleared for mental health assessement By: Mishel Wallace PA Time: 03/02 1702 Comment: Patient discussed with [facility]. Agree that patient meets criteria for voluntary admission. By: Mishel Wallace PA Time: 03/02 1758 Comment: Transfer of care to [facility] at shift change By: Mishel Wallace PA Time: 03/02 1806 Comment: Patient discussed with [facility] transfer center coordinator, provided additional information about the patient By: Mishel Wallace PA Final diagnoses: Suicidal ideation Mishel Wallace PA 03/31/24 1011 Cosigned by Jeromy Tompkins MD at 03/31/2024 9:38 PM CDT * Sandra Hartley RN - 03/02/2024 10:18 AM CDT Bed: ED19 Expected date: Expected time: Means of arrival: Comments: 28M SI, etoh, fell down stairs, right side pain Sandra Hartley RN 03/02/24 1018 documented in this encounter Plan of Treatment Not on file documented as of this encounter Procedures Procedure Name Priority Date/Time Associated Diagnosis Comments INFLUENZA A/B, RSV, AND COVID-19 PCR Routine 03/02/2024 10:52 AM CDT EGFR STAT 03/02/2024 10:52 AM CDT DIFFERENTIAL AUTO STAT 03/02/2024 10: 52 AM CDT THYROID FUNCTION CASCADE STAT 03/02/2024 10:52 AM CDT URINALYSIS AND REFLEX TO MICROSCOPIC AND CULTURE STAT 03/02/2024 10:52 AM CDT CBC WITH AUTO DIFFERENTIAL STAT 03/02/2024 10:52 AM CDT DRUGS OF ABUSE SCREEN, URINE WITHOUT CONFIRMATION STAT 03/02/2024 10:52 AM CDT ETHANOL STAT 03/02/2024 10:52 AM CDT ACETAMINOPHEN LEVEL STAT 03/02/2024 1 0:52 AM CDT SALICYLATE LEVEL STAT 03/02/2024 10:5 2 AM CDT COMPREHENSIVE METABOLIC PANEL STAT 03/02/2024 10:52 AM CDT documented in this encounter Results * eGFR (03/02/2024 10:52 AM CDT) eGFR >90 >=60 mL/min/1. 73 [...] interpretive data was last reviewed 2021. Blood 03/02/2024 10:5 2 AM CDT 03/02/2024 11:08 AM CDT Mishel RAMON LAB BLOOD ORDERABLES Antonina shakila Result [facility] [address] Department [place] [address] * (ABNORMAL) Differential, auto (03/02/2024 10:52 AM CDT) Neutrophil abs 0.9(L) 1.5 - 6.5 K/cumm Imm gran abs 0.0 0.0 - 0.1 K/cumm [facility] Lymphocyte abs 1.6 0.8 - 3.3 K/cumm [facility] Monocyte abs 0.2 0.2 - 0.8 K/cumm [facility] Eosinophil abs 0.1 0.0 - 0.5 K/cumm [facility] Basophil abs 0.0 0.0 - 0.1 K/cumm [facility] Neutrophil pct 32.1 % [facility] Comment: Interpretive Data Percent cell count reference ranges are not reported, since discordance with absolute values may lead to misinterpretation of CBC data. Current Interpretive Data was last revised on 2017. Imm gran pct 0.4 % [facility] Comment: Interpretive Data Percent cell count reference ranges are not reported, since discordance with absolute values may lead to misinterpretation of CBC data. Current Interpretive Data was last revised on 2017. Lymphocyte pct 55.8 % [facility] Comment: Interpretive Data Percent cell count reference ranges are not reported, since discordance with absolute values may lead to misinterpretation of CBC data. Current Interpretive Data was last revised on 2017. Monocyte pct 8.1 % [facility] Comment: Interpretive Data Percent cell count reference ranges are not reported, since discordance with absolute values may lead to misinterpretation of CBC data. Current Interpretive Data was last revised on 2017. Eosinophil pct 2.5 % [facility] Comment: Interpretive Data Percent cell count reference ranges are not reported, since discordance with absolute values may lead to misinterpretation of CBC data. Current Interpretive Data was last revised on 2017. Basophil pct 1.1 % [facility] Comment: Interpretive Data Percent cell count reference ranges are not reported, since discordance with absolute values may lead to misinterpretation of CBC data. Current Interpretive Data was last revised on 2017. Blood 03/02/2024 10:5 2 AM CDT 03/02/2024 11:06 AM CDT Mishel RAMON LAB BLOOD ORDERABLES Antonina jhaveri Result [facility] [address] Department [place] [address] * Influenza A/B, RSV, and COVID-19 PCR Nasopharyngeal (03/02/2024 10:52 AM CDT) [facility] COVID-19 RNA Negative Negative Influenza A RNA Negative Negative [facility] Influenza B RNA Negative Negative [facility] RSV RNA Negative Negative [facility] Comment: Interpretive data: Testing performed by [facility]. This test is performed using the [employer] Xpert Xpress CoV-2/Flu/RSV plus assay. This is a multiplex, real-time reverse transcriptase PCR assay intended for the qualitative detection of nucleic acid from SARS-CoV-2, influenza A, influenza B, and respiratory syncytial virus. This assay has been cleared by the [place] Food and Drug administration. The performance characteristics have been verified by the [facility]. ??Results must be considered in the clinical context, and a negative result does not rule out infection. Interpretive Data last revised 2023 Nasopharyngeal 03/02/2024 10 :52 AM CDT 03/02/2024 11:06 AM CDT Narrative JOE - 03/02/2024 11:50 AM CDT Is the Patient experiencing symptoms consistent with COVID?->Yes Mishel RAMON LAB MICROBIOLOGY - GENERA L ORDERABLES Final Result Performing Organization Address [facility] Co de Phone Number [facility]E [facility] [id number] [place] [address] [facility] * Acetaminophen level (03/02/2024 10:52 AM CDT) Acetaminophen <5 <=5 mcg/mL Comment: Interpretive Data Significant hepatic injury may occur and treatment with n-acetyl cysteine is generally recommended if the acetaminophen level exceeds: 150 mcg/mL at 4 hours after ingestion ??75 mcg/mL at 8 hours after ingestion ??38 mcg/mL at 12 hours after ingestion ??19 mcg/mL at 16 hours after ingestion Consult toxicology or poison control ([phone]) for unknown ingestion time. Current interpretive data was last revised 2023. Blood 03/02/2024 10:5 2 AM CDT 03/02/2024 11:06 AM CDT us Mishel RAMON LAB BLOOD ORDERABLES Antonina l Result Performing Organization Address [facility] Co de Phone Number JOE WY[facility] [phone] Department [employer] [place], [place] [id number] * Salicylate level (03/02/2024 10:52 AM CDT) Salicylate <0.3 <=0.3 mg/dL Comment: Interpretive Data Toxic: 30 mg/dL or greater. Current interpretive data was last revised 2023. Blood 03/02/2024 10:5 2 AM CDT 03/02/2024 11:06 AM CDT Mishel RAMON LAB BLOOD ORDERABLES Antonina l Result Performing Organization Address City/[facility] [place] [phone] [address] [place] [address] * Urinalysis reflex to microscopic and culture Urine (03/02/2024 10:52 AM CDT) Color, ur Yellow Yellow Clarity, ur Clear Clear [facility] Specific gravity, ur 1.023 1.003 - 1.030 [facility] pH, urine 5.0 [facility] Comment: Interpretive Data ? Urine pH is affected by diet, medications, systemic acid-base disturbances, and renal tubular function. ??pH may affect urinary stone formation. ??For example, urine pH below 6.0 may help reduce the tendency for calcium phosphate stones and pH greater than 6.0 may reduce the tendency for uric acid stone formation. Source: [facility] Current Interpretive Data was last revised on 2017 Protein, ur ql Negative Negative [facility] Glucose, ur ql Negative Negative [facility] Ketones, ur Negative Negative [facility] Bilirubin, ur Negative Negative [facility] Blood, ur Negative Negative [facility] Urobilinogen, ur <2.0 <2.0 mg/dL [facility] Nitrite, ur Negative Negative [facility] Leukocyte esterase, ur Negative Negative [facility] UA reflex comment Reflex conditions for microscopic UA and culture not met. [facility] Urine 03/02/2024 10:5 2 AM CDT 03/02/2024 11:06 AM CDT Mishel RAMON LAB MICROBIOLOGY - GENERA L ORDERABLES Final Result [facility] [address] Department [place] [address] * Drugs of Abuse Screen, Urine without Confirmation (03/02/2024 10:52 AM CDT) Pathologist [facility] Amphetamine, ur Not Detected CutOff 500ng/mL Comment: Interpretive Data - Amphetamines: ??Samples containing greater than 500 ng/mL d-methamphetamine ??or other cross-reacting amphetamine compounds are reported as positive. ??Amphetamine immunoassays are subject to significant false positive rates due to cross-reactivity of non-amphetamine drugs. Confirmatory testing required for definitive results. Current Interpretive Data was last reviewed 2023. Barbiturates, ur Not Detected CutOff 200ng/mL [facility] Comment: Interpretive Data - Barbiturates: ??Samples containing greater than 200 ng/mL secobarbital or other cross-reacting barbiturate compounds are reported as positive. ??False positive and false negative results are possible. Confirmatory testing required for definitive results. Current Interpretive Data was last reviewed 2023. Benzodiazepines, ur Not Detected CutOff 100ng/mL [facility] Comment: Interpretive Data - Benzodiazepines: ??Samples containing greater than 100 ng/mL nordiazepam or other cross-reacting compounds are reported as positive. False positive and false negative results are possible. Confirmatory testing required for definitive results. Current Interpretive Data was last reviewed 2023. Cannabinoids, ur Not Detected CutOff 50 ng/mL [facility] Comment: Interpretive Data - Cannabinoids: ??Samples containing greater than 50 ng/mL delta-9 THC -COOH or other cross-reacting compounds are reported as positive. ??False positive and false negative results are possible. ??Confirmatory testing required for definitive results. Current Interpretive Data was last reviewed 2023. Cocaine, ur Not Detected CutOff 150ng/mL [facility] Comment: Interpretive Data - Cocaine: ??Samples containing greater than 150 ng/mL benzoylecgonine or other cross-reacting compounds are reported as positive. False positive and false negative results are possible. Confirmatory testing required for definitive results. Current Interpretive Data was last reviewed 2023. Fentanyl, Ur Not Detected CutOff 5 ng/mL [facility] Comment: Interpretive Data - Fentanyl: ?? Samples containing greater than 5 ng/mL norfentanyl, fentanyl, or other cross-reacting fentanyl compounds are reported as positive. False positive and false negative results are possible. Confirmatory testing required for definitive results. Current Interpretive Data was last reviewed 2023. Methadone, ur Not Detected CutOff 300ng/mL [facility] Comment: Interpretive Data - Methadone: ??Samples containing greater than 300 ng/mL d,l-methadone or other cross-reacting compounds are reported as positive. ??False positive and false negative results are possible. Confirmatory testing required for definitive results. Current Interpretive Data was last reviewed 2023. Opiates, ur Not Detected CutOff 300ng/mL [facility] Comment: Interpretive Data - Opiates: ??Samples containing greater than 300 ng/mL morphine or other cross-reacting compounds are reported as positive. ??False positive and false negative results are possible. Confirmatory testing required for definitive results. Current Interpretive Data was last reviewed 2023. Oxycodone, ur Not Detected CutOff 100ng/mL [facility] Comment: Interpretive Data - Oxycodone: ??Samples containing [...] Data was last reviewed 2023. Urine Creatinine 228 mg/dL [facility] WYNN Comment: Interpretive Data Urine Creatinine: < 10 mg/dL is extremely dilute = or > 10 but < 20 mg/dL is dilute = or > 20 mg/dL is normal Current Interpretive Data was last revised on 2017. Urine 03/02/2024 10:5 2 AM CDT 03/02/2024 11:06 AM CDT Narrative JOE - 03/02/2024 12:26 PM CDT Drug of Abuse screening is performed by immunoassay for medical purposes only. ??This is not to be used for Pain Management purposes. Mishel RAMON LAB URINE ORDERABLES Antonina l Result [facility] [address] Department [place] [address] * Ethanol (03/02/2024 10:52 AM CDT) Ethanol <10 <=10 mg/dL Comment: Interpretive Data Legal limit of intoxication > or = 80 mg/dL Levels > or = 400 mg/dL are potentially TOXIC. Current interpretive data was last revised on 2018. Blood 03/02/2024 10:5 2 AM CDT 03/02/2024 11:06 AM CDT Mishel Thelma RAMON LAB BLOOD ORDERABLES Antonina l Result [facility] [address] [place] [address] * Thyroid Function [place] (03/02/2024 10:52 AM CDT) TSH 0.73 0.30 - 4.20 mcIUnit/mL Blood 03/02/2024 10:5 2 AM CDT 03/02/2024 11:06 AM CDT Mishel Braggmattie Sladechrissy TRISTEN LAB BLOOD ORDERABLES Antonina l Result Performing Organization Address [facility] Co de Phone Number JOE WYNN [address] [place] [address] * Comprehensive metabolic panel (03/02/2024 10:52 AM CDT) Sodium 142 135 - 145 mmol/L Potassium, pl 4.8 3.3 - 4.9 mmol/L [facility] Chloride 106 97 - 110 mmol/L [facility] CO2 26 22 - 32 mmol/L [facility] Anion gap 10 2 - 15 mmol/L [facility] BUN 10 6 - 25 mg/dL [facility] Creatinine 1.04 0.80 - 1.30 mg/dL [facility] Glucose 80 70 - 199 mg/dL [facility] Comment: Interpretive Data Fasting glucose [...] 2022. Calcium 9.2 8.5 - 10.3 mg/dL [facility] Bilirubin, total 0.4 0.1 - 1.2 mg/dL [facility] Protein, pl 8.5 6.5 - 8.5 g/dL [facility] Albumin 4.1 3.5 - 5.0 g/dL [facility] Alk phos 80 40 - 130 Units/L [facility] ALT 22 7 - 55 Units/L [facility] AST 24 10 - 50 Units/L [facility] Blood 03/02/2024 10:5 2 AM CDT 03/02/2024 11:06 AM CDT Mishel RAMON LAB BLOOD ORDERABLES Antonina l Result Performing Organization Address City/State/[facility] [place] [phone] [address] Department [place] [address] * (ABNORMAL) CBC with auto differential (03/02/2024 10:52 AM CDT) WBC 2.9(L) 3.8 - 9.9 K/cumm Hgb 14.4 13.0 - 17.5 g/dL [facility] Hct 46.8 38.9 - 50.3 % [facility] Plt 342 150 - 400 K/cumm [facility] MPV 9.2 9.1 - 12.3 fL [facility] RBC 5.53 4.30 - 5.80 M/cumm [facility] MCV 84.6 81.3 - 96.4 fL [facility] MCH 26.0(L) 27.1 - 33.3 pg [facility] MCHC 30.8(L) 32.3 - 35.7 g/dL [facility] RDW CV 15.2(H) 11.1 - 14.9 % [facility] RDW SD 46.5 35.7 - 48.1 fL [facility] NRBC abs 0.00 0.00 - 0.01 K/cumm [facility] Blood (Blood, Venous) 03/02/2024 10:52 AM CDT 03/02/2024 11:06 AM CDT Mishel RAMON LAB BLOOD ORDERABLES Antonina l Result [facility] [address] Department [place] [address] documented in this encounter Visit Diagnoses Diagnosis Suicidal ideation- Primary documented in this encounter Orders Consult Count Last Ordered Date First Orde red Date CONSULT TO [facility]IORAL HEALTH [facility] 1 024 documented in this encounter Care Teams Deep Fat Cook Fry Relationship Specialty Start Date End Date Mady Sullivan MD [address] [facility] [address] [place] [address] PCP - General Infectious Diseases 10/12/23 No, Physician 10/12/23 documented as of this encounter
--- OUTSIDE RECORDS SUMMARY | 2024-08-10 03:34 | XMS_ITS | Encounter Summary ---
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 Comment: Interpretive Data - Cannabinoids: ??Samples containing greater than 50 ng/mL delta-9 THC -COOH or other cross-reacting compounds are reported as positive. ??False positive and false negative results are possible. ??Confirmatory testing required for definitive results. Current Interpretive Data was last reviewed 2023. Cocaine, ur Not Detected CutOff 150ng/mL [facility] Comment: Interpretive Data - Cocaine: ??Samples [...] Methadone, ur Not Detected CutOff 300ng/mL [facility] Comment: Interpretive Data - Methadone: ??Samples containing greater than 300 ng/mL d,l-methadone or other cross-reacting compounds are reported as positive. ??False positive and false negative results are possible. Confirmatory testing required for definitive results. Current Interpretive Data was last reviewed 2023. Opiates, ur Not Detected CutOff 300ng/mL [facility] Comment: Interpretive Data - Opiates: ??Samples containing greater than 300 ng/mL morphine or other cross-reacting compounds are reported as positive. ??False positive and false negative results are possible. Confirmatory testing required for definitive results. Current Interpretive Data was last reviewed 2023. Oxycodone, ur Not Detected CutOff 100ng/mL [facility] Comment: Interpretive Data - Oxycodone: ??Samples containing greater than 100 ng/mL oxycodone or other cross-reacting compounds are reported as ??positive. ??False positive and false negative results are possible. Confirmatory testing required for definitive results. Current Interpretive Data was last reviewed 2023. Phencyclidine, ur Not Detected CutOff 25 ng/mL [facility] Comment: Interpretive Data - Phencyclidine: ??Samples containing greater than 25 ng/mL phencyclidine or other cross-reacting compounds are reported as positive. ??False positive and false negative results are possible. Confirmatory testing required for definitive results. Current Interpretive Data was last reviewed 2023. Urine Creatinine 198 mg/dL [facility] Comment: Interpretive Data Urine Creatinine: < 10 mg/dL is extremely dilute = or > 10 but < 20 mg/dL is dilute = or > 20 mg/dL is normal Current Interpretive Data was last revised on 2017. Urine 03/01/2024 3:38 PM CDT 03/01/2024 3:47 PM CDT Narrative [facility] - 03/01/2024 4:15 PM CDT Drug of Abuse screening is performed by immunoassay for medical purposes only. ??This is not to be used for Pain Management purposes. us Pooja Molina NP LAB URINE ORDERABLES Antonina jhaveri Result [facility] Department [place] [address] * Ethanol (03/01/2024 3:38 PM CDT) Ethanol <10 <=10 mg/dL Comment: Interpretive Data Legal limit of intoxication > or = 80 mg/dL Levels > or = 400 mg/dL are potentially TOXIC. Current interpretive data was last revised on 2018. Blood 03/01/2024 3:38 PM CDT 03/01/2024 3:47 PM CDT Pooja Molina OFFSET PROOF PRESS OPERATOR LAB BLOOD ORDERABLES Antonina l Result Performing Organization Address [facility] Co de Phone Number [facility] Department [place] [address] * Thyroid Function Holt (03/01/2024 3:38 PM CDT) Pathologist [facility] TSH 0.66 0.30 - 4.20 mcIUnit/mL Blood 03/01/2024 3:38 PM CDT 03/01/2024 3:47 PM CDT Pooja Molina OFFSET PROOF PRESS OPERATOR LAB BLOOD ORDERABLES Antonina l Result Performing Organization Address [facility] de Phone Number [facility] [place] [address] * (ABNORMAL) Comprehensive metabolic panel (03/01/2024 3:38 PM CDT) Pathologist [facility] Sodium 141 135 - 145 mmol/L Potassium, pl 4.7 3.3 - 4.9 mmol/L [facility] Comment:Hemolyzed; Potassium value may be falsely elevated by as much as 0.6-1.0 mmol/L. Suggest redraw and reanalysis. Chloride 110 97 - 110 mmol/L [facility] CO2 20(L) 22 - 32 mmol/L [facility] Anion gap 11 2 - 15 mmol/L [facility] BUN 14 6 - 25 mg/dL [facility] Creatinine 1.04 0.80 - 1.30 mg/dL [facility] Glucose 80 70 - 199 mg/dL [facility] Comment: Interpretive Data Fasting glucose >/= [...] interpretive data was last revised 2022. Calcium 9.5 8.5 - 10.3 mg/dL [facility] Bilirubin, total 0.3 0.1 - 1.2 mg/dL [facility] Protein, pl 8.8(H) 6.5 - 8.5 g/dL [facility] Albumin 4.2 3.5 - 5.0 g/dL [facility] Alk phos 82 40 - 130 Units/L [facility] ALT 25 7 - 55 Units/L [facility] AST 40 10 - 50 Units/L [facility] Comment:Hemolyzed; result ma y be falsely elevated Blood 03/01/2024 3:38 PM CDT 03/01/2024 3:47 PM CDT Pooja Molina OFFSET PROOF PRESS OPERATOR LAB BLOOD ORDERABLES Antonina jhaveri Result [facility] Department [place] [address] * (ABNORMAL) CBC with auto differential (03/01/2024 3:38 PM CDT) [facility] WBC 3.8 3.8 - 9.9 K/cumm Hgb 14.8 13.0 - 17.5 g/dL [facility] Hct 46.5 38.9 - 50.3 % [facility] Plt 355 150 - 400 K/cumm [facility] MPV 9.2 9.1 - 12.3 fL [facility] RBC 5.61 4.30 - 5.80 M/cumm [facility] MCV 82.9 81.3 - 96.4 fL [facility] MCH 26.4(L) 27.1 - 33.3 pg [facility] MCHC 31.8(L) 32.3 - 35.7 g/dL [facility] RDW CV 15.1(H) 11.1 - 14.9 % [facility] RDW SD 45.4 35.7 - 48.1 fL [facility] NRBC abs 0.00 0.00 - 0.01 K/cumm [facility] Blood (Blood, Venous) 03/01/2024 3:38 PM CDT 03/01/2024 3:47 PM CDT us Pooja Molina NP LAB BLOOD ORDERABLES Antonina jhaveri Result Performing Organization Address City/State/[facility] Co de Phone Number [facility] Department [place] [address] documented in this encounter Visit Diagnoses Diagnosis Suicidal ideation- Primary Encephalopathy Unspecified encephalopathy History of methamphetamine use documented in this encounter Administered Medications Inactive Administered Medications - up to 3 most recent administrations Medication Order MAR Action Action Date Dose Rate Site qgpdpfwcsei-besfwvropogec-awfejd vir (BIKTARVY) 50-200-25 mg per tablet 1 tablet 1 tablet, oral, Once, On 03/01/24 at 1546, For 1 dose, May be dissolved in 240 mL of water. Give 2 hrs before or 6 hrs after MVI, antacids, or other products containing sucralfate, magnesium, aluminum, iron, or zinc., Indications: HIV infectionIndications:HIV infection Given 03/01/2024 4:30 PM CDT 1 tablet cloNIDine (CATAPRES) tablet 0.1 mg 0.1 mg, oral, Once, On 03/01/24 at 1800, For 1 dose Given 03/01/2024 6:32 PM CDT 0.1 mg documented in this encounter Active and Recently Administered Medications Times are shown in CDT. Scheduled Medication Order 02/28/2024 02/29/2024 03/01/2024 seolsfplevn-qptjvgbaavgkz-ormjhu vir (BIKTARVY) 50-200-25 mg per tablet 1 tablet (COMPLETED) 1 tablet, oral, Once, On 03/01/24 at 1546, For 1 dose, May be dissolved in 240 mL of water. Give 2 hrs before or 6 hrs after MVI, antacids, or other products containing sucralfate, magnesium, aluminum, iron, or zinc., Indications: HIV infection 1630 (Given - Provid er: Trevor Simons RN) cloNIDine (CATAPRES) tablet 0.1 mg (COMPLETED) 0.1 mg, oral, Once, On 03/01/24 at 1800, For 1 dose 1832 (Given - Provid er: Razia Gutiérrez RN) documented in this encounter Orders Nursing Count Last Ordered Date First Orde red Date MISCELLANEOUS NURSING CARE ORDER (SPECIFY) 03/01/2024 Consult Count Last Ordered Date First Orde red Date IP CONSULT TO PSYCHIATRY 03/01/2024 documented in this encounter Care Teams Glaze Wiper Relationship Specialty Start Date End Date Mady Sullivan MD [address] [address] PCP - General Infectious Diseases 10/12/23 No, Physician 10/12/23 documented as of this encounter
--- OUTSIDE RECORDS SUMMARY | 2024-08-10 03:34 | XMS_ITS | Encounter Summary ---
Author Organization [facility] Healthcare Address [address] [place] [address] Care Team Providers Care Director Teen Post Name Role Phone Mady Sullivan MD Primary Care Provider No, Physician Unavailable Amira Javed OSTEOPATHIC NEUROLOGIST Unavailable [phone] Reason for Visit * Reason Comments [facility] Patient Eligibility Review Encounter Details Date Type Department Care Team (Late st Contact Info) Description 10/29/2023 [facility] Initial Eligibility Review [facility]NAG[facility] [address] [place] [id number] Amira Javed, OSTEOPATHIC NEUROLOGIST [address] [facility] [place] Mailstop [phone] [place] [address] Social History Tobacco Use Types Packs/Day Years Used Date Smoking Tobacco: Never Smokeless Tobacco: Never [facility] Utilities Answer Date Recorded In the past 12 months has [facility] [employer], gas, oil, or water [employer] threatened to shut off services in your [...] you attend chur or episcopalian services? Never 10/15/2023 Do you belong to any clubs o r organizations such as baptist groups, unions, fraternal or athletic groups, or [...] Date Recorded PHQ-2 Total Score 4 10/15/2023 [facility] - Occupational Stress Questionnaire Answer Date [...] in a detention (including now)? No 10/15/2023 Personal Safety Answer Date Recorded Have you ever been in or are you currently in a harmful physical or emotional relationship or is someone making you feel afraid or unsafe? Denies 10/10/2023 Sex and Gender Information Value Date Recorded Sex Assigned at Not on file Legal Sex Male 11:02 PM [employer] Gender Identity Not on file Sexual Orientation [...] of Assessment Author No 10/03/2023 12:08 PM TAYOT Dragan Montano LCSW * Because of a physical, mental, [...] on filedocumented in this encounter Care Teams Director Teen Post Relationship Specialty Start Date End Date Mady Sullivan MD [address] [facility] [address] [place] [address] PCP - General Infectious Diseases 10/12/23 No, Physician 10/12/23 Amira Javed LCSW [address] [facility] [place] Mailstop [phone] [place] [address] [facility] Outpatient Hse Specialist 10/29/23 10/30/23 documented as of this encounter
--- OUTSIDE RECORDS SUMMARY | 2024-08-10 03:34 | XMS_ITS | Encounter Summary ---
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 01/29/2024 9:26 AM CDT Associated attestation - Jabier Lucio MD - 01/29/2024 9:26 AM CDT I have seen and examined the patient on 01/28/2024. I agree with the findings and plan of care as documented in the resident's/fellow's note.. * Gwyn Villasenor MD - 01/27/2024 7:20 AM CDT Psychiatry Progress Note [facility] [address] [place], [place] Name: Phil Chase CSN: [id number] : 1995 Admit Date: 01/25/2024 Department: [facility] Room: 2632 Subjective: Patient is doing fair. Didn???t sleep well (5 hrs). Overall tolerated medications well.Feels depressed. Self-esteem poor. Isolative. Mental Status Exam: The patient appears to be alert and oriented x 3, in no acute distress. Appearance and hygiene: psych safe scrubs Behavior: cooperative Eye contact: fair Speech: normal rate and rhythm, elicitable Mood: 6/10 Affect: constricted Motor activity: WNL Thought process: linear Content of Thought: no HI/AH/VH; passive suicidal thoughts Cognition: poor Insight and judgment: poor Vital Signs: BP 130/70 (BP Location: Left arm, Patient Position: Sitting) Pulse 89 Temp 36.5 ??C (97.7 ??F) (Oral) Resp 18 Ht 182.9 cm (6') Wt 82 kg (180 lb 12.8 oz) SpO2 99% BMI 24.52 kg/m?? Medications: Current Facility-Administered Medications Medication Dose Route Frequency Provider Last Rate Last Admin acetaminophen (TYLENOL) tablet 650 mg 650 mg oral Q4H PRN Gwyn Villasenor MD ARIPiprazole (ABILIFY) tablet 5 mg 5 mg oral Daily Gwyn Villasenor MD 5 mg at 01/26/24902 hyggffezrsl-wepfgxqlzpwph-rrfylcbbb (BIKTARVY) 50-200-25 mg per tablet 1 tablet 1 tablet oral DailyGwyn Villasenor MD 1 tablet at 01/26/24902 doxepin (SINEquan) capsule 25 mg 25 mg oral Nightly Gwyn Villasenor MD 25 mg at 01/26/242020 DULoxetine DR (CYMBALTA) extended release capsule 60 mg 60 mg oral Daily Gwyn Villasenor MD 60 mg at 01/26/24902 hydrOXYzine (ATARAX) tablet 25 mg 25 mg oral Q6H PRN Gwyn Villasenor MD 25 mg at 01/26/24902 OLANZapine (ZyPREXA ZYDIS) disintegrating tablet 10 mg 10 mg oral Q8H PRN Gwyn Villasenor MD Or OLANZapine (ZyPREXA) 10 mg in sterile water 2 mL (5 mg/mL) syringe 10 mg intramuscular Q8H PRN Gwyn Villasenor MD traZODone (DESYREL) tablet 50 mg 50 mg oral Nightly PRN Gwyn Villasenor MD DIAGNOSIS: PTSD (post-traumatic stress disorder) Borderline personality disorder (CMS/HCC) (HCC) Methamphetamine use disorder, moderate (HCC) Plan: 1) Continue biopsychosocial interventions including individual, group and milieu psychotherapy. 2) Continue to monitor medication regiment and make changes as needed (see above) 3) Reviewed risks vs benefits of medication regiment as well as educated about possible side effects 4) Internal medicine to assist with any medical concerns which is appreciated 5) SW to assist with discharge planning which is appreciated 6) Follow up with patient on daily basis Electronically signed by: Gwyn Villasenor MD January 27, 2024 7:20 AM * Gwyn Villasenor MD - 01/26/2024 7:15 AM CDT INITIAL CERTIFICATION: The patient requires active inpatient psychiatric services/treatment. Due to the patient's clinicalcondition, their treatment will require intensive services that can only be provided in an inpatient hospital setting. The patient requires on a daily basis, [facility].The patient cannot benefit from a less intensive form of treatment at this time due to: Patient has failed outpatient management.It is my assessment that the services/treatment are reasonably expected to improve the patient's condition . documented in this encounter H&P Notes * Gwyn Villasenor MD - 01/26/2024 7:15 AM CDT Psychiatry Evaluation [facility] [address] [place], [place] Name: Phil Chase : 1995 Admit Date: 01/25/2024 Evaluation Date: 01/26/2024 Attending Physician: Jabier Lucio MD Identifying Data: This is a 28 y.o. old male presented for evaluation of mood and behavior. Chief Complaint: suicidal ideations HPI: This is a 28 y.o. old male who presented to the hospital and needed a mental health assessment. UDS positive for MJ. Patient presented for evaluation, reporting increased anxiety level and suicidal ideations. He states that his emotional condition related to the loss he suffered the other day,when his friend was murdered. Appears to be dramatic and attention seeking. History reveled borderline personality disorder diagnosis along with PTSD and history of methamphetamine abuse. Upon presentation patient states that he has suicidal ideations with the plan to overdose on medications. Also thought to overdose on methamphetamines. Patient claims to have access to firearm. Patient claims nii sober for 100 days and relapsed week ago. His last drug use was 7 days ago. He is angry at the whole situation and states that he would kill those people who killed his friend. He also mentioned that the recent job loss in the past week contributed to his depression and thoughts of suicide. He states that he felt worthless, useless and helpless. Patient stated that he feels suicidal a little today . Lonely, nothing works for me now, just depressed . 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 Psychiatric Review of Systems: Depressive symptoms?: depressed mood, difficulty concentrating, hopelessness, psychomotor retardation, and suicidal thoughts with specific plan Does patient endorse manic symptoms?: no Does patient endorse psychotic symptoms?: no Does patient endorse anxiety symptoms?: yes Does patient endorses being exposed to a traumatic event?: yes Patient denies symptoms of OCD, Pain or Eating disorder. Alcohol Use and Substance/Drug Use History: Use of Alcohol: denied Substances/Drug Use: methamphetamines Patient TWICE going to detox/rehab in the past: [facility] . Tobacco - 3 cig./day. Just relapsed recently Past Psychiatric History: Psychiatrist or Therapist: Dr. Locke psychiatrist through [facility]. 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 Inpatient Psychiatric Hospitalizations: This is third admission to [facility]. Suicide attempts: yes, one attempt one month ago by drug OD Received services for 6 months from [facility] for HIV patient. He caught HIV through partner. Was with him for 10 years. H/o Abilify, Zoloft, Atarax, Doxepin. Past Medical History: Diagnosis Date HIV (human immunodeficiency virus infection) (HCC) Neuropathy (CMS/HCC) Past Surgical History: Procedure Laterality Date LUMBAR PUNCTURE WO INJECTION, DIAGNOSTIC N/A 10/12/2023 Current Medications Current Facility-Administered Medications Medication Dose Route Frequency Provider Last Rate Last Admin acetaminophen (TYLENOL) tablet 650 mg 650 mg oral Q4H PRN Gwyn Villasenor MD ARIPiprazole (ABILIFY) tablet 5 mg 5 mg oral Daily Gwyn Villasenor MD zzkoyuohqkq-honclihbiejld-sbkptfwsh (BIKTARVY) 50-200-25 mg per tablet 1 tablet 1 tablet oral DailyGwyn Villasenor MD doxepin (SINEquan) capsule 25 mg 25 mg oral Nightly Gwyn Villasenor MD DULoxetine DR (CYMBALTA) extended release capsule 60 mg 60 mg oral Daily Gwyn Villasenor MD hydrOXYzine (ATARAX) tablet 25 mg 25 mg oral Q6H PRN Gwyn Villasenor MD OLANZapine (ZyPREXA ZYDIS) disintegrating tablet 10 mg 10 mg oral Q8H PRN Gwyn Villasenor MD Or OLANZapine (ZyPREXA) 10 mg in sterile water 2 mL (5 mg/mL) syringe 10 mg intramuscular Q8H PRN Gwyn Villasenor MD traZODone (DESYREL) tablet 50 mg 50 mg oral Nightly PRN Gwyn Villasenor MD Allergies: Patient has no known allergies. No family history on file. 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 Homosexual, resides in apartment. Have friends. Talking to both parents. Has 3 sisters, he is oldest child at the sibship. No job now, lives on saving. Social History Tobacco Use Smoking status: Never Smokeless tobacco: Never Substance and Sexual Activity Drug use: Defer Sexual activity: Defer Alcohol Use: Not At Risk (12/24/2023) Received from [facility] Frequency of Alcohol Consumption: Never Average Number of Drinks: Patient does not drink Frequency of Binge Drinking: Never Physical Exam Vitals: 01/25/24 2052 01/26/24 0155 01/26/24 0321 BP: 148/79 130/70 BP Location: Left arm Patient Position: Sitting Pulse: 83 89 Resp: 16 18 Temp: 37.1 ??C (98.8 ??F) 36.5 ??C (97.7 ??F) TempSrc: Oral Oral SpO2: 97% 99% Weight: 81.6 kg (180 lb) 82.1 kg (180 lb 14.4 oz) 82 kg (180 lb 12.8 oz) Height: 182.9 cm (6') 182.9 cm (6') Recent Labs: Recent Results (from the past 4032 hour(s)) CBC with auto differential Collection Time: 10/02/23 11:11 AM Result Value Ref Range WBC 4.6 3.8 - 9.9 K/cumm Hgb 14.1 13.0 - 17.5 g/dL Hct 43.8 38.9 - 50.3 % Plt 338 150 - 400 K/cumm MPV 9.6 9.1 - 12.3 fL RBC 5.42 4.30 - 5.80 M/cumm MCV 80.8 (L) 81.3 - 96.4 fL MCH 26.0 (L) 27.1 - 33.3 pg MCHC 32.2 (L) 32.3 - 35.7 g/dL RDW CV 16.3 (H) 11.1 - 14.9 % RDW SD 47.5 35.7 - 48.1 fL NRBC abs 0.00 0.00 - 0.01 K/cumm Basic metabolic panel Collection Time: 10/02/23 11:11 AM Result Value Ref Range Sodium 139 135 - 145 mmol/L Potassium, pl 4.6 3.3 - 4.9 mmol/L Chloride 104 97 - 110 mmol/L CO2 28 22 - 32 mmol/L Anion gap 7 2 - 15 mmol/L BUN 11 6 - 25 mg/dL Creatinine 1.05 0.80 - 1.30 mg/dL Glucose 72 70 - 199 mg/dL Calcium 9.5 8.5 - 10.3 mg/dL Ethanol Collection Time: 10/02/23 11:11 AM Result Value Ref Range Ethanol <10 <=10 mg/dL Salicylate level Collection Time: 10/02/23 11:11 AM Result Value Ref Range Salicylate <9.0 <=9.0 mg/dL Acetaminophen level Collection Time: 10/02/23 11:11 AM Result Value Ref Range Acetaminophen <5 <=5 mcg/mL Differential, auto Collection Time: 10/02/23 11:11 AM Result Value Ref Range Neutrophil abs 2.0 1.5 - 6.5 K/cumm Imm gran abs 0.0 0.0 - 0.1 K/cumm Lymphocyte abs 2.1 0.8 - 3.3 K/cumm Monocyte abs 0.3 0.2 - 0.8 K/cumm Eosinophil abs 0.1 0.0 - 0.5 K/cumm Basophil abs 0.0 0.0 - 0.1 K/cumm Neutrophil pct 43.5 % Imm gran pct 0.2 % Lymphocyte pct 46.5 % Monocyte pct 6.7 % Eosinophil pct 2.2 % Basophil pct 0.9 % eGFR Collection Time: 10/02/23 11:11 AM Result Value Ref Range eGFR >90 >=60 mL/min/1.73 m2 Lipid panel Collection Time: 10/02/23 11:11 AM Result Value Ref Range Cholesterol 176 30 - 199 mg/dL Triglycerides 161 (H) <=149 mg/dL HDL 44 >=40 mg/dL LDL, calculated 100 <=129 mg/dL Non-HDL Cholesterol 132 mg/dL Chol/HDL ratio 4 Hepatic function panel Collection Time: 10/02/23 11:11 AM Result Value Ref Range Bilirubin, total 0.2 0.1 - 1.2 mg/dL Bilirubin, direct See Comment 0.1 - 0.3 mg/dL Protein, pl 8.9 (H) 6.5 - 8.5 g/dL Albumin 4.1 3.5 - 5.0 g/dL Alk phos 87 40 - 130 Units/L ALT 32 7 - 55 Units/L AST 50 10 - 50 Units/L Drugs of Abuse Screen, Urine without Confirmation Collection Time: 10/02/23 12:14 PM Result Value Ref Range Amphetamine, ur Not Detected CutOff 500ng/mL Barbiturates, ur Not Detected CutOff 200ng/mL Benzodiazepines, ur Not Detected CutOff 100ng/mL Cannabinoids, ur Not Detected CutOff 50 ng/mL Cocaine, ur Not Detected CutOff 150ng/mL Fentanyl, Ur Not Detected Cutoff 1 ng/mL Methadone, ur Not Detected CutOff 300ng/mL Opiates, ur Not Detected CutOff 300ng/mL Oxycodone, ur Not Detected CutOff 100ng/mL Phencyclidine, ur Not Detected CutOff 25 ng/mL Urine Creatinine 122 mg/dL N. gonorrhoeae/C. trachomatis Amplification Urine Collection Time: 10/02/23 2:04 PM Specimen: None; Urine Result Value Ref Range C. trachomatis Not Detected Not Detected N. gonorrhoeae Not Detected Not Detected RPR Blood Blood, Venous Collection Time: 10/02/23 2:04 PM Specimen: Blood, Venous Result Value Ref Range RPR Reactive (A) Nonreactive RPR Titer Blood Collection Time: 10/02/23 2:04 PM Specimen: Blood Result Value Ref Range RPR qn 1:32 (A) Nonreactive Treponemal IgG/IgM Blood Collection Time: 10/02/23 2:04 PM Specimen: Blood Result Value Ref Range Treponemal IgG/IgM Reactive (A) Nonreactive CBC with auto differential Collection Time: 10/10/23 11:27 AM Result Value Ref Range WBC 3.7 (L) 3.8 - 9.9 K/cumm Hgb 14.9 13.0 - 17.5 g/dL Hct 45.3 38.9 - 50.3 % Plt 324 150 - 400 K/cumm MPV 9.9 9.1 - 12.3 fL RBC 5.77 4.30 - 5.80 M/cumm MCV 78.5 (L) 81.3 - 96.4 fL MCH 25.8 (L) 27.1 - 33.3 pg MCHC 32.9 32.3 - 35.7 g/dL RDW CV 16.2 (H) 11.1 - 14.9 % RDW SD 45.1 35.7 - 48.1 fL NRBC abs 0.00 0.00 - 0.01 K/cumm Comprehensive metabolic panel Collection Time: 10/10/23 11:27 AM Result Value Ref Range Sodium 140 135 - 145 mmol/L Potassium, pl 4.3 3.3 - 4.9 mmol/L Chloride 104 97 - 110 mmol/L CO2 27 22 - 32 mmol/L Anion gap 9 2 - 15 mmol/L BUN 11 6 - 25 mg/dL Creatinine 1.06 0.80 - 1.30 mg/dL Glucose 78 70 - 199 mg/dL Calcium 9.5 8.5 - 10.3 mg/dL Bilirubin, total 0.4 0.1 - 1.2 mg/dL Protein, pl 9.3 (H) 6.5 - 8.5 g/dL Albumin 4.2 3.5 - 5.0 g/dL Alk phos 101 40 - 130 Units/L ALT 27 7 - 55 Units/L AST 40 10 - 50 Units/L Thyroid Function Bertie Collection Time: 10/10/23 11:27 AM Result Value Ref Range TSH 1.18 0.30 - 4.20 mcIUnit/mL Ethanol Collection Time: 10/10/23 11:27 AM Result Value Ref Range Ethanol <10 <=10 mg/dL Differential, auto Collection Time: 10/10/23 11:27 AM Result Value Ref Range Neutrophil abs 1.5 1.5 - 6.5 K/cumm Imm gran abs 0.0 0.0 - 0.1 K/cumm Lymphocyte abs 1.7 0.8 - 3.3 K/cumm Monocyte abs 0.5 0.2 - 0.8 K/cumm Eosinophil abs 0.1 0.0 - 0.5 K/cumm Basophil abs 0.0 0.0 - 0.1 K/cumm Neutrophil pct 39.8 % Imm gran pct 0.3 % Lymphocyte pct 44.9 % Monocyte pct 12.3 % Eosinophil pct 1.9 % Basophil pct 0.8 % eGFR Collection Time: 10/10/23 11:27 AM Result Value Ref Range eGFR >90 >=60 mL/min/1.73 m2 CRP (acute phase) Collection Time: 10/10/23 11:27 AM Result Value Ref Range CRP 2.1 <=10.0 mg/L Erythrocyte sedimentation rate Collection Time: 10/10/23 11:27 AM Result Value Ref Range Erythrocyte sedimentation rate 12 1 - 15 mm/hr Urinalysis reflex to microscopic and culture Urine Collection Time: 10/10/23 1:46 PM Specimen: Urine Result Value Ref Range Color, ur Yellow Yellow Clarity, ur Clear Clear Specific gravity, ur 1.034 (H) 1.003 - 1.030 pH, urine 6.0 Protein, ur ql Trace Negative Glucose, ur ql Negative Negative Ketones, ur Negative Negative Bilirubin, ur Negative Negative Blood, ur Negative Negative Urobilinogen, ur 2.0 (A) <2.0 mg/dL Nitrite, ur Negative Negative Leukocyte esterase, ur Negative Negative UA reflex comment Reflex conditions for microscopic UA and culture not met. Drugs of Abuse Screen, Urine without Confirmation Collection Time: 10/10/23 1:46 PM Result Value Ref Range Amphetamine, ur Screen Positive, presumptive (A) CutOff 500ng/mL Barbiturates, ur Not Detected CutOff 200ng/mL Benzodiazepines, ur Not Detected CutOff 100ng/mL Cannabinoids, ur Not Detected CutOff 50 ng/mL Cocaine, ur Not Detected CutOff 150ng/mL Fentanyl, Ur Not Detected Cutoff 1 ng/mL Methadone, ur Not Detected CutOff 300ng/mL Opiates, ur Not Detected CutOff 300ng/mL Oxycodone, ur Not Detected CutOff 100ng/mL Phencyclidine, ur Not Detected CutOff 25 ng/mL Urine Creatinine 352 mg/dL RPR Blood Collection Time: 10/10/23 2:27 PM Specimen: Blood Result Value Ref Range RPR Reactive (A) Nonreactive RPR Titer Blood Collection Time: 10/10/23 2:27 PM Specimen: Blood Result Value Ref Range RPR qn 1:128 (A) Nonreactive T-helper cells (CD4) count Collection Time: 10/11/23 7:33 AM Result Value Ref Range CD4 pct 13 (L) 31 - 64 % CD4 Absolute 225 (L) 365 - 1,294 cells/mcL T-helper cells (CD4) count Collection Time: 10/11/23 8:24 AM Result Value Ref Range CD4 pct 13 (L) 31 - 64 % CD4 Absolute 237 (L) 365 - 1,294 cells/mcL HIV-1 RNA PCR, quantitative Blood Collection Time: 10/11/23 8:24 AM Specimen: Blood Result Value Ref Range HIV-1 RNA Not Detected Protime-INR Collection Time: 10/11/23 9:46 AM Result Value Ref Range PT 11.1 10.3 - 13.7 sec INR 0.97 0.90 - 1.20 CBC with auto differential Collection Time: 10/11/23 3:42 PM Result Value Ref Range WBC 4.0 3.8 - 9.9 K/cumm Hgb 14.9 13.0 - 17.5 g/dL Hct 45.6 38.9 - 50.3 % Plt 285 150 - 400 K/cumm MPV 9.4 9.1 - 12.3 fL RBC 5.71 4.30 - 5.80 M/cumm MCV 79.9 (L) 81.3 - 96.4 fL MCH 26.1 (L) 27.1 - 33.3 pg MCHC 32.7 32.3 - 35.7 g/dL RDW CV 16.0 (H) 11.1 - 14.9 % RDW SD 45.6 35.7 - 48.1 fL NRBC abs 0.00 0.00 - 0.01 K/cumm Comprehensive metabolic panel Collection Time: 10/11/23 3:42 PM Result Value Ref Range Sodium 142 135 - 145 mmol/L Potassium, pl 4.3 3.3 - 4.9 mmol/L Chloride 107 97 - 110 mmol/L CO2 27 22 - 32 mmol/L Anion gap 8 2 - 15 mmol/L BUN 10 6 - 25 mg/dL Creatinine 1.08 0.80 - 1.30 mg/dL Glucose 82 70 - 199 mg/dL Calcium 9.3 8.5 - 10.3 mg/dL Bilirubin, total 0.3 0.1 - 1.2 mg/dL Protein, pl 8.2 6.5 - 8.5 g/dL Albumin 4.2 3.5 - 5.0 g/dL Alk phos 92 40 - 130 Units/L ALT 19 7 - 55 Units/L AST 31 10 - 50 Units/L Hepatitis C antibody Blood Collection Time: 10/11/23 3:42 PM Specimen: Blood Result Value Ref Range Hep C Ab Nonreactive Nonreactive Hepatitis B core antibody, total Blood Collection Time: 10/11/23 3:42 PM Specimen: Blood Result Value Ref Range Hep B core IgG/IgM Nonreactive Nonreactive Hepatitis B Surface Antigen Blood Collection Time: 10/11/23 3:42 PM Specimen: Blood Result Value Ref Range HepBsAg Nonreactive Nonreactive Hepatitis B surface antibody (immune status) Blood Collection Time: 10/11/23 3:42 PM Specimen: Blood Result Value Ref Range HBsAb (immune status) Nonreactive Hepatitis A antibody, total Blood Collection Time: 10/11/23 3:42 PM Specimen: Blood Result Value Ref Range Hep A total Reactive (A) Nonreactive Differential, auto Collection Time: 10/11/23 3:42 PM Result Value Ref Range Neutrophil abs 1.6 1.5 - 6.5 K/cumm Imm gran abs 0.0 0.0 - 0.1 K/cumm Lymphocyte abs 2.0 0.8 - 3.3 K/cumm Monocyte abs 0.3 0.2 - 0.8 K/cumm Eosinophil abs 0.1 0.0 - 0.5 K/cumm Basophil abs 0.0 0.0 - 0.1 K/cumm Neutrophil pct 39.5 % Imm gran pct 0.0 % Lymphocyte pct 49.1 % Monocyte pct 8.3 % Eosinophil pct 2.3 % Basophil pct 0.8 % eGFR Collection Time: 10/11/23 3:42 PM Result Value Ref Range eGFR >90 >=60 mL/min/1.73 m2 Hepatitis A antibody, IgM Blood Collection Time: 10/11/23 3:42 PM Specimen: Blood Result Value Ref Range Hep A IgM Nonreactive Nonreactive N. gonorrhoeae/C. trachomatis Amplification Rectal swab Collection Time: 10/11/23 4:59 PM Specimen: None; Rectal swab Result Value Ref Range C. trachomatis Not Detected Not Detected N. gonorrhoeae Not Detected Not Detected N. gonorrhoeae/C. trachomatis Amplification Throat Collection Time: 10/11/23 4:59 PM Specimen: None; Throat Result Value Ref Range C. trachomatis Not Detected Not Detected N. gonorrhoeae Not Detected Not Detected Miscellaneous Test Sendout Chemistry Collection Time: 10/12/23 12:04 PM Result Value Ref Range Test name Treponema Pallidum Ab, IFA, CSF Result 1 See Comment Cell count w/reflex diff, CSF Collection Time: 10/12/23 1:00 PM Result Value Ref Range Tube Number, CSF Tube 1 Color, CSF Colorless Colorless Clarity, CSF Clear Clear Nucleated cells, CSF 10 (H) 0 - 5 /cumm RBC, CSF 0 0 - 0 /cumm Glucose, CSF Collection Time: 10/12/23 1:00 PM Result Value Ref Range Glucose, CSF 62 mg/dL Herpes Simplex Virus (HSV) PCR CSF Collection Time: 10/12/23 1:00 PM Specimen: CSF Result Value Ref Range HSV DNA Not Detected Not Detected Mycology (fungal) culture and Cryptococcus antigen, CSF CSF Collection Time: 10/12/23 1:00 PM Specimen: CSF Result Value Ref Range Report Final Report: No growth of fungus Protein, total, CSF Collection Time: 10/12/23 1:00 PM Result Value Ref Range Protein, CSF 30 5 - 45 mg/dL VDRL, CSF CSF Collection Time: 10/12/23 1:00 PM Specimen: CSF Result Value Ref Range VDRL CSF Negative Negative Bacterial culture and gram stain, CSF CSF Collection Time: 10/12/23 1:00 PM Specimen: CSF Result Value Ref Range Direct Specimen Exam Stain: Cytospin Gram stain shows: No polymorphonuclear leukocytes seen. No organisms seen. Report Final Report: No growth Cryptococcal antigen, CSF CSF Collection Time: 10/12/23 1:00 PM Specimen: CSF Result Value Ref Range Cryptococcal Antigen Negative Negative Miscellaneous Test Sendout Chemistry Collection Time: 10/12/23 1:00 PM Result Value Ref Range Test name Treponema Pallidum Ab, IFA, CSF Result 1 See Comment CBC with auto differential Collection Time: 10/12/23 8:53 PM Result Value Ref Range WBC 4.4 3.8 - 9.9 K/cumm Hgb 14.7 13.0 - 17.5 g/dL Hct 45.0 38.9 - 50.3 % Plt 299 150 - 400 K/cumm MPV 9.7 9.1 - 12.3 fL RBC 5.71 4.30 - 5.80 M/cumm MCV 78.8 (L) 81.3 - 96.4 fL MCH 25.7 (L) 27.1 - 33.3 pg MCHC 32.7 32.3 - 35.7 g/dL RDW CV 15.7 (H) 11.1 - 14.9 % RDW SD 44.1 35.7 - 48.1 fL NRBC abs 0.03 (H) 0.00 - 0.01 K/cumm Basic metabolic panel Collection Time: 10/12/23 8:53 PM Result Value Ref Range Sodium 136 135 - 145 mmol/L Potassium, pl 4.8 3.3 - 4.9 mmol/L Chloride 103 97 - 110 mmol/L CO2 26 22 - 32 mmol/L Anion gap 7 2 - 15 mmol/L BUN 10 6 - 25 mg/dL Creatinine 0.98 0.80 - 1.30 mg/dL Glucose 99 70 - 199 mg/dL Calcium 9.3 8.5 - 10.3 mg/dL Differential, auto Collection Time: 10/12/23 8:53 PM Result Value Ref Range Neutrophil abs 1.9 1.5 - 6.5 K/cumm Imm gran abs 0.0 0.0 - 0.1 K/cumm Lymphocyte abs 1.9 0.8 - 3.3 K/cumm Monocyte abs 0.4 0.2 - 0.8 K/cumm Eosinophil abs 0.2 0.0 - 0.5 K/cumm Basophil abs 0.0 0.0 - 0.1 K/cumm Neutrophil pct 42.6 % Imm gran pct 0.5 % Lymphocyte pct 42.9 % Monocyte pct 9.5 % Eosinophil pct 3.8 % Basophil pct 0.7 % eGFR Collection Time: 10/12/23 8:53 PM Result Value Ref Range eGFR >90 >=60 mL/min/1.73 m2 POCT glucose Collection Time: 10/13/23 7:58 PM Result Value Ref Range Glucose, POC 114 70 - 199 mg/dL Basic metabolic panel Collection Time: 10/19/23 9:06 AM Result Value Ref Range Sodium 134 (L) 135 - 145 mmol/L Potassium, pl 4.2 3.3 - 4.9 mmol/L Chloride 97 97 - 110 mmol/L CO2 27 22 - 32 mmol/L Anion gap 10 2 - 15 mmol/L BUN 14 6 - 25 mg/dL Creatinine 1.10 0.80 - 1.30 mg/dL Glucose 163 70 - 199 mg/dL Calcium 9.3 8.5 - 10.3 mg/dL CBC with auto differential Collection Time: 10/19/23 9:06 AM Result Value Ref Range WBC 4.3 3.8 - 9.9 K/cumm Hgb 15.4 13.0 - 17.5 g/dL Hct 47.8 38.9 - 50.3 % Plt 274 150 - 400 K/cumm MPV 9.3 9.1 - 12.3 fL RBC 5.97 (H) 4.30 - 5.80 M/cumm MCV 80.1 (L) 81.3 - 96.4 fL MCH 25.8 (L) 27.1 - 33.3 pg MCHC 32.2 (L) 32.3 - 35.7 g/dL RDW CV 15.8 (H) 11.1 - 14.9 % RDW SD 44.4 35.7 - 48.1 fL NRBC abs 0.00 0.00 - 0.01 K/cumm Differential, auto Collection Time: 10/19/23 9:06 AM Result Value Ref Range Neutrophil abs 2.2 1.5 - 6.5 K/cumm Imm gran abs 0.0 0.0 - 0.1 K/cumm Lymphocyte abs 1.9 0.8 - 3.3 K/cumm Monocyte abs 0.1 (L) 0.2 - 0.8 K/cumm Eosinophil abs 0.1 0.0 - 0.5 K/cumm Basophil abs 0.0 0.0 - 0.1 K/cumm Neutrophil pct 49.8 % Imm gran pct 0.2 % Lymphocyte pct 43.1 % Monocyte pct 3.2 % Eosinophil pct 3.0 % Basophil pct 0.7 % eGFR Collection Time: 10/19/23 9:06 AM Result Value Ref Range eGFR >90 >=60 mL/min/1.73 m2 Hepatic function panel Collection Time: 10/24/23 12:41 AM Result Value Ref Range Bilirubin, total 0.2 0.1 - 1.2 mg/dL Bilirubin, direct <0.2 0.1 - 0.3 mg/dL Protein, pl 8.3 6.5 - 8.5 g/dL Albumin 4.1 3.5 - 5.0 g/dL Alk phos 81 40 - 130 Units/L ALT 28 7 - 55 Units/L AST 30 10 - 50 Units/L Basic metabolic panel Collection Time: 10/24/23 8:24 PM Result Value Ref Range Sodium 138 135 - 145 mmol/L Potassium, pl 4.3 3.3 - 4.9 mmol/L Chloride 102 97 - 110 mmol/L CO2 28 22 - 32 mmol/L Anion gap 8 2 - 15 mmol/L BUN 12 6 - 25 mg/dL Creatinine 1.26 0.80 - 1.30 mg/dL Glucose 117 70 - 199 mg/dL Calcium 8.9 8.5 - 10.3 mg/dL CBC with auto differential Collection Time: 10/24/23 8:24 PM Result Value Ref Range WBC 4.3 3.8 - 9.9 K/cumm Hgb 13.4 13.0 - 17.5 g/dL Hct 41.8 38.9 - 50.3 % Plt 252 150 - 400 K/cumm MPV 9.4 9.1 - 12.3 fL RBC 5.21 4.30 - 5.80 M/cumm MCV 80.2 (L) 81.3 - 96.4 fL MCH 25.7 (L) 27.1 - 33.3 pg MCHC 32.1 (L) 32.3 - 35.7 g/dL RDW CV 15.9 (H) 11.1 - 14.9 % RDW SD 45.5 35.7 - 48.1 fL NRBC abs 0.00 0.00 - 0.01 K/cumm Differential, auto Collection Time: 10/24/23 8:24 PM Result Value Ref Range Neutrophil abs 2.0 1.5 - 6.5 K/cumm Imm gran abs 0.0 0.0 - 0.1 K/cumm Lymphocyte abs 1.5 0.8 - 3.3 K/cumm Monocyte abs 0.5 0.2 - 0.8 K/cumm Eosinophil abs 0.3 0.0 - 0.5 K/cumm Basophil abs 0.0 0.0 - 0.1 K/cumm Neutrophil pct 46.7 % Imm gran pct 0.5 % Lymphocyte pct 35.7 % Monocyte pct 10.5 % Eosinophil pct 6.1 % Basophil pct 0.5 % eGFR Collection Time: 10/24/23 8:24 PM Result Value Ref Range eGFR 79 >=60 mL/min/1.73 m2 RPR Blood Collection Time: 10/24/23 8:24 PM Specimen: Blood Result Value Ref Range RPR Reactive (A) Nonreactive RPR Titer Blood Collection Time: 10/24/23 8:24 PM Specimen: Blood Result Value Ref Range RPR qn 1:64 (A) Nonreactive CBC with auto differential Collection Time: 01/25/24 9:13 PM Result Value Ref Range WBC 4.3 3.8 - 9.9 K/cumm Hgb 13.8 13.0 - 17.5 g/dL Hct 43.0 38.9 - 50.3 % Plt 281 150 - 400 K/cumm MPV 9.8 9.1 - 12.3 fL RBC 5.26 4.30 - 5.80 M/cumm MCV 81.7 81.3 - 96.4 fL MCH 26.2 (L) 27.1 - 33.3 pg MCHC 32.1 (L) 32.3 - 35.7 g/dL RDW CV 14.8 11.1 - 14.9 % RDW SD 44.3 35.7 - 48.1 fL NRBC abs 0.00 0.00 - 0.01 K/cumm Basic metabolic panel Collection Time: 01/25/24 9:13 PM Result Value Ref Range Sodium 141 135 - 145 mmol/L Potassium, pl 4.3 3.3 - 4.9 mmol/L Chloride 103 97 - 110 mmol/L CO2 28 22 - 32 mmol/L Anion gap 10 2 - 15 mmol/L BUN 10 6 - 25 mg/dL Creatinine 1.18 0.80 - 1.30 mg/dL Glucose 88 70 - 199 mg/dL Calcium 8.9 8.5 - 10.3 mg/dL Thyroid Function Bertie Collection Time: 01/25/24 9:13 PM Result Value Ref Range TSH 1.78 0.30 - 4.20 mcIUnit/mL Differential, auto Collection Time: 01/25/24 9:13 PM Result Value Ref Range Neutrophil abs 2.1 1.5 - 6.5 K/cumm Imm gran abs 0.0 0.0 - 0.1 K/cumm Lymphocyte abs 1.8 0.8 - 3.3 K/cumm Monocyte abs 0.3 0.2 - 0.8 K/cumm Eosinophil abs 0.1 0.0 - 0.5 K/cumm Basophil abs 0.0 0.0 - 0.1 K/cumm Neutrophil pct 48.5 % Imm gran pct 0.2 % Lymphocyte pct 41.0 % Monocyte pct 7.2 % Eosinophil pct 2.6 % Basophil pct 0.5 % eGFR Collection Time: 01/25/24 9:13 PM Result Value Ref Range eGFR 85 >=60 mL/min/1.73 m2 Drugs of Abuse Screen, Urine without Confirmation Collection Time: 01/25/24 11:04 PM Result Value Ref Range Amphetamine, ur Not Detected CutOff 500ng/mL Barbiturates, ur Not Detected CutOff 200ng/mL Benzodiazepines, ur Not Detected CutOff 100ng/mL Cannabinoids, ur Screen Positive, presumptive (A) CutOff 50 ng/mL Cocaine, ur Not Detected CutOff 150ng/mL Fentanyl, Ur Not Detected CutOff 5 ng/mL Methadone, ur Not Detected CutOff 300ng/mL Opiates, ur Not Detected CutOff 300ng/mL Oxycodone, ur Not Detected CutOff 100ng/mL Phencyclidine, ur Not Detected CutOff 25 ng/mL Urine Creatinine 124 mg/dL Urinalysis reflex to microscopic and culture Urine Collection Time: 01/25/24 11:04 PM Specimen: Urine Result Value Ref Range Color, ur Straw Yellow Clarity, ur Clear Clear Specific gravity, ur 1.013 1.003 - 1.030 pH, urine 7.0 Protein, ur ql Trace Negative Glucose, ur ql Negative Negative Ketones, ur Negative Negative Bilirubin, ur Negative Negative Blood, ur Negative Negative Urobilinogen, ur <2.0 <2.0 mg/dL Nitrite, ur Negative Negative Leukocyte esterase, ur Negative Negative UA reflex comment Reflex conditions for microscopic UA and culture not met. Mental Status Exam: The patient appears to be alert and oriented x 3, in no acute distress. Appearance and hygiene: psych safe scrubs Behavior: cooperative Eye contact: fair Speech: normal rate and rhythm, elicitable Mood: 4/10 Affect: constricted Motor activity: WNL Thought process: linear Content of Thought: no HI/AH/VH, SI+ Cognition: poor Insight and judgment: poor DIAGNOSIS:PTSD (post-traumatic stress disorder) Borderline personality disorder (CMS/HCC) (HCC) Methamphetamine use disorder, moderate (HCC) Assessment: Admit patient to the acute psychiatric unit for continuation of the treatment. Plan: 1) The patient will be put in safe and supportive environment and behavior will be monitored. 2) Will initiate full spectrum of biopsychosocial interventions including individual, group and milieu psychotherapy. 3) Reconcile medications, focusing on stabilization of the emotional condition. 4) The risks and benefits of treatment including potential alternative treatment strategies were discussed and the patient consents to this treatment plan. Treatment options may include: medication, thereapy, and combination of medications and therapy; 5) Internal medicine to assist with any medical concerns which is appreciated 6) SW to assist with discharge planning which is appreciated 7) Utilization review will assess the resource for follow up care which is appreciated 8) Follow up with patient on daily basis Electronically signed by: Gwyn Villasenor MD January 26, 2024 7:15 AM documented in this encounter Consult Notes * Larry Javed MD - 01/26/2024 9:33 AM CDTAssociated Order(s): IP CONSULT TO INTERNAL MEDICINE History and Physical Division of Hospital Medicine Name: Phil Chase : 1995 Today's Date: January 26, 2024 Age: 28 y.o. male Admit Date: 01/25/2024 Bed: [id number] LOS: 1 days Subjective HPI Phil Chase is a 28 y.o. male with h/o HIV infection Rx'd to undetectable viral load, methamphetamine use (urine drug screen negative), borderline personality disorder, and PTSD who presented to the [facility] ED with increasing anxiety and suicidal ideations after friend was murdered. Addendum from Occupational Health And Safety Manager Note Patient was recently admitted to [facility] from 01/01/2024 to 01/07/2024 for depression and suicidal ideation. Patient was seen in [place] emergency department on 01/16/2024 for substance-induced mood disorder. Patient admitted to [facility] from 01/16-01/24. Per medical records he discharged from [facility] on 01/25/2024 in the morning and presented to [facility] ED before 9:00PM. [facility]. 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 Asked to evaluatepatient for general medical examination. Plan Routine general medical examination at a health care facility Assessment & Plan No acute medical issues or complaints identified. Remainder of plan per psychiatry. HIV disease (CMS/HCC) ([facility]) Assessment & Plan HIV positive in 07/2017 HIV RNA undetectable in 09/2023. Needs to attend next follow-up apointment. Hep B and C negative. Hep A was positive in 09/2023 RPR - reactive 1:1024 and then 1:128 in 09/2023 and 1:64 in 10/2023 - Rx'd with doses of IM penicillin per patient in 2018 when initially diagnosed. * Suicidal ideation Assessment & Plan Reason for admission to [facility]. Methamphetamine use disorder, moderate ([facility]) Assessment & Plan Negative urine drug screen. Syphilis Assessment & Plan Previously treated and declining RPR level Code status : Full Code Diet : Adult Diet Regular Objective Past Medical History Past Medical History: Diagnosis Date Borderline personality disorder (CMS/HCC) ([facility]) Depression with suicidal ideation HIV (human immunodeficiency virus infection) ([facility]) Methamphetamine use disorder, moderate, in early remission (HCC) Neuropathy (CMS/[facility]) PTSD (post-traumatic stress disorder) Syphilis (acquired) Rx'd with 3 IM doses of Penicillni per patient Past Surgical History: Procedure Laterality Date LUMBAR PUNCTURE WO INJECTION, DIAGNOSTIC N/A 10/12/2023 Current Facility-Administered Medications Medication Dose Route Frequency Provider Last Rate Last Admin acetaminophen (TYLENOL) tablet 650 mg 650 mg oral Q4H PRN Gwyn Villasenor MD ARIPiprazole (ABILIFY) tablet 5 mg 5 mg oral Daily Gwyn Villasenor MD 5 mg at 01/26/24902 epbvoesgtyw-lfegrtgtoeiqr-ikhynmjcc (BIKTARVY) 50-200-25 mg per tablet 1 tablet 1 tablet oral DailyGwyn Villasenor MD 1 tablet at 01/26/24902 doxepin (SINEquan) capsule 25 mg 25 mg oral Nightly Gwyn Villasenor MD DULoxetine DR (CYMBALTA) extended release capsule 60 mg 60 mg oral Daily Gwyn Villasenor MD 60 mg at 01/26/24902 hydrOXYzine (ATARAX) tablet 25 mg 25 mg oral Q6H PRN Gwyn Villasenor MD 25 mg at 01/26/24902 OLANZapine (ZyPREXA ZYDIS) disintegrating tablet 10 mg 10 mg oral Q8H PRN Gwyn Villasenor MD Or OLANZapine (ZyPREXA) 10 mg in sterile water 2 mL (5 mg/mL) syringe 10 mg intramuscular Q8H PRN Gwyn Villasenor MD traZODone (DESYREL) tablet 50 mg 50 mg oral Nightly PRN Gwyn Villasenor MD No Known Allergies Social and Family History Social History Tobacco Use Smoking status: Never Smokeless tobacco: Never Substance and Sexual Activity Drug use: Defer Sexual activity: Defer Alcohol Use: Not At Risk (12/24/2023) Received from [facility] AUDIT-C Frequency of Alcohol Consumption: Never Average Number of Drinks: Patient does not drink Frequency of Binge Drinking: Never Family History Problem Relation Age of Onset Hypertension Maternal Grandmother Diabetes type II Maternal Grandmother Vitals Most Recent Vitals: T 36.5 ??C (97.7 ??F), HR 89, BP 130/70, RR 18, SpO2 99 %. 24hr Min/Max: Temp Min: 36.5 ??C (97.7 ??F) Max: 37.1 ??C (98.8 ??F) Pulse Min: 83 Max: 89 BP Min: 130/70 Max: 148/79 Resp Min: 16 Max: 18 SpO2 Min: 97 % Max: 99 % No intake or output data in the 24 hours ending 01/26/24 1156 Physical Exam Constitutional: General: He is not in acute distress. Appearance: Normal appearance. He is normal weight. He is not ill-appearing. Eyes: General: No scleral icterus. Cardiovascular: Rate and Rhythm: Normal rate and regular rhythm. Heart sounds: No murmur heard. Pulmonary: Effort: Pulmonary effort is normal. No respiratory distress. Breath sounds: No wheezing. Abdominal: General: Abdomen is flat. Bowel sounds are normal. Palpations: Abdomen is soft. Tenderness: There is no abdominal tenderness. Musculoskeletal: Right lower leg: No edema. Left lower leg: No edema. Neurological: General: No focal deficit present. Mental Status: He is alert. Comments: Ambulatory Lines, Drains, Airways Labs/Diagnostic Review Na 141 Cl 103 BUN 10 K 4.3 CO2 28 Cr 1.18 Mg -, G AST - ALT - Alk Phos - Ca 8.9 TP - Alb - Total Bili: - Direct Bili: - \ Hgb 13.8 / WBC 4.3 -------- Plt 281 / MCV 81.7 \ (Labs above are the most recent result obtained in the last 24 hours. For additional labs/trends, see Epic.) I have reviewed the laboratory results. Unremarkable labs except urine drug screen positive for marijuana. Imaging Review No results found. Assessment/Plan The Assessment and Plan is located below the Subjective section of this note. Supplementary Attestation My total encounter time on this service date was 45 minutes which was spent performing a hxus-km-gaco encounter and personally completing the provider-level activities documented in the note. This includes time spent prior to the visit and after the visit in direct care of the patient. This time does not include time spent in any separately reportable services. Larry Javed MD documented in this encounter Nursing Notes * Chas Osorio RN - 01/30/2024 8:51 AM CDT Patient discharged from unit at 851 via [facility] to [facility]. All discharge instructions provided and patient verbalized understanding. Discharge medications and follow up appointmentsprovided. Mood stable and appropriate for situation. Denies SI/HI/AH/VH at this time. Patient verbalized understanding. Patient property returned and all education points completed with patient unders tanding. Safety beacon removed. For patients or family members viewing this note through [employer] or other [employer] access programs: This note was written as a communication tool between healthcare providers and may contain technical language, terminology, and/or abbreviations that are difficult to interpret without advanced medical training. If you have questions or concerns regarding what is written in this note, please request to speak with the primary medical team taking care of you or your family member -- or call your PCP for clarification. Please do not call cell or pager numbers listed in this note, as the provider they are associated with may no longer be involved in your care. * Margaret White RN - 01/29/2024 9:47 PM CDT Pt awake, resting quietly in bed upon assessment. Calm and cooperative with assessment, medications. Pt denies depression. Rates anxiety 04/01, requested medication for anxiety and sleep. Pt denies SI, HI, AVH and pain at this time. Goal stay sleep through the whole night . 2034 medication given for anxiety and sleep, see MAR. Will continue to monitor as ordered for safety and encourage treatmentgoals. 2134 pt resting calmly in bed with eyes closed, appears to be sleeping. Medication deemed effective. * Lloyd Starr RN - 01/28/2024 9:34 PM CDT One hour prior the patient endorsed difficulty with anxiety rated 8/10 and requested additional medication to treat this. PRN atarax administered, patient accepted. Current follow up, patient found sleeping in his bedroom. Will continue to follow treatment plan. * Lloyd Starr RN - 01/28/2024 8:34 PM CDT Assumed care of Phil Chase at 1900. The patient was found in his bedroom. He was calm and cooperative with patient assessment and med pass. He endorsed anxiety at 8/10. He endorsed depression at5/10. He denied SI, HI, A/V hallucinations, pain, or feelings of helplessness or hopelessness. His last BM was earlier today. His goal when asked was sleep without anxiety . Will continue to follow treatment plan. * Willa Martin RN - 01/27/2024 8:51 PM CDT Patient was in his room at shift change and at the time of assessment. Patient was compliant with taking medications. Patient endorsed anxiety 8/10 depression 6/10. He has been isolative to his room this shift. Will continue to monitor with every 15 minute checks. * Viry Lombardo RN - 01/27/2024 9:44 AM CDT 0944 Upon reassessment of PRN atarax. Patient is noted in bed and appears asleep. Respirations evenand unlabored. No signs of distress noted. PRN effective * Viry Lombardo RN - 01/27/2024 8:44 AM CDT Assumed care of Phil Chase at 0711. Upon assessment He was resting in his assigned room. He was calm and cooperative. He denied HI, AVH, pain. He expressed anxiety 6, depression 6. Atarax was administered for anxiety. Patient also expressed having SI thoughts on the scale of 6 but he contracted for safety. He stated his goal for the day was none stated . Phil Chase denied all otherissues. [place] was present on patient. Plan of care ongoing. * Nancie Palomino RN - 01/27/2024 4:54 AM CDT Assumed care of Phil Chase at 1915. Upon assessment patient was in his room laying on bed.. Pt was calm and cooperative. Pt denied SI, HI, AVH. Rated anxiety 8/10, depression 7/10, and pain. Phil Chase denied all other issues. Will continue to monitor q15 minutes as ordered. * Viry Lombardo RN - 01/26/2024 9:03 AM CDT Assumed care of Phil Chase at 0721. Upon assessment He was resting in his assigned room. He was calm and cooperative. He denied HI, AVH, pain. He expressed anxiety 8, depression 6. Atarax was administered for anxiety. Patient also expressed having SI thoughts on the scale of 6 but he contracted for safety. He stated his goal for the day was to have a good day . Phil Chase denied all other issues. [place] was present on patient. Plan of care ongoing. * Chanda Silva RN - 01/26/2024 1:55 AM CDT Phil Chase arrived via EMS on stretcher as a transfer from [facility]. Pt A&O x4 upon arrival though drowsy. Pts psychiatric history consists of depression, PTSD, SI, bipolar disorder, and anxiety. Pt medical history consists of HIV and MAURI. Pt calm and cooperative, answered all questions appropriately and changed scrubs without issue. Pt is currently suicidal with a plan to overdose on metha mphetamine. Pt rates depression and anxiety both 10/10 after the recent loss of his best friend whowas murdered yesterday and the loss of his job just last week. Pt states that he feels hopeless at this time. Pt denies HI/AH/VH. Pt denied any physical pain at first but had some difficulty ambulating due to chronic pain in his RT ankle and foot. Pt rates pain 12/30 but denies need for pain medication. Pt provided with a snack and shown to his room where he proceeded to go directly to sleep. Psychiatrist notified of pt arrival and orders entered. Will continue to monitor and provide support forpatient. documented in this encounter ED Notes * Elkin Fisher MD - 01/25/2024 9:13 PM CDT HPI Chief Complaint Patient presents with ??? Suicidal Ideation 28yr old with bipolar disorder, anxiety, borderline personality disorder, PTSD, HIV and methamphetamine use presents with suicidal ideation. He reports that he began having SI today with a plan. He reports that he plans to overdose on drugs. He uses methamphetamine and reports that he would try to overdose on this. He also has access to afirearm at home. His SI started earlier today after finding out that a friend of his had been killed. He recently reached 100 days of sobriety and relapsed 7 days ago. He reports that his last drug use was 7 days ago. Denies HI but then says he would like to hurt the people who killed his friend. Denies AVH, but reports AVH with drug use. Patient History: Patient Active Problem List Diagnosis Date Noted ??? Suicide ideation 01/25/2024 ??? PTSD (post-traumatic stress disorder) 10/12/2023 ??? Borderline personality disorder (CMS/HCC) ([facility]) 10/12/2023 ??? Vertigo 10/11/2023 ??? Suicidal ideation 10/10/2023 ??? HIV disease (CMS/HCC) ([facility]) 10/03/2023 ??? Syphilis 10/03/2023 ??? Inguinal hernia 10/03/2023 ??? 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[facility]) 10/03/2023 ??? Plaque psoriasis 10/03/2023 ??? Methamphetamine use disorder, moderate ([facility]) 10/03/2023 ??? Depression, unspecified 10/02/2023 ??? 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 Condyloma 10/29/2020 Past Medical History: Diagnosis Date ??? HIV (human immunodeficiency virus infection) (HCC) ??? Neuropathy (CMS/HCC) Past Surgical History: Procedure Laterality Date ??? LUMBAR PUNCTURE WO INJECTION, DIAGNOSTIC N/A 10/12/2023 No family history on file. Social History Tobacco Use ??? Smoking status: Never ??? Smokeless tobacco: Never Vaping Use ??? Vaping status: Never Used Substance and Sexual Activity ??? Alcohol use: Not on file ??? Drug use: Defer ??? Sexual activity: Defer Social History Social History Narrative ??? Not on file Review of Systems Review of Systems Physical Exam ED Triage Vitals [01/25/242051] Temp Pulse Resp BP SpO2 37.1 ??C (98.8 ??F) 83 16 148/79 97 % Temp src Heart Rate Source Patient Position BP Location FiO2 (%) Oral -- -- -- -- Height Height Method Weight Weight Method 1.829 m (6') -- 81.6 kg (180 lb) -- Physical Exam HENT: Head: Normocephalic. Nose: Nose normal. Mouth/Throat: Mouth: Mucous membranes are moist. Eyes: Pupils: Pupils are equal, round, and reactive to light. Cardiovascular: Rate and Rhythm: Normal rate and regular rhythm. Heart sounds: Normal heart sounds. Pulmonary: Effort: Pulmonary effort is normal. No respiratory distress. Breath sounds: Normal breath sounds. Abdominal: General: There is no distension. Palpations: Abdomen is soft. Tenderness: There is no abdominal tenderness. Musculoskeletal: General: Normal range of motion. Cervical back: Neck supple. Skin: General: Skin is warm. Capillary Refill: Capillary refill takes less than 2 seconds. Neurological: General: No focal deficit present. Mental Status: He is alert. Comments: A&O x4 Psychiatric: Comments: Flat affect, tearful, endorses SI, HI towards the people who killed his friend, denies AVH MDM Medical Decision Making 28yr old with bipolar disorder, anxiety, borderline personality disorder, PTSD, HIV and methamphetamine use presents with suicidal ideation. On examination, he has a flat effect, is tearful and endorses SI with a plan (overdose of drugs). Will obtain CBC, BMP, UA, UDS, and TSH. He is willing to voluntarily be admitted. Voluntary admission paperwork has been signed, if [facility] bed is available will voluntarily admit there. If [facility] beds are not available, will consult Psychiatry for evaluation and admission. Risk Decision regarding hospitalization. Attending Summary of Care ED Course as of 01/25/242 Time: 01/25 2136 Comment: Voluntary admission paperwork signed by patient By: Minal Montano MD Time: 01/24 2139 Comment: ED attending-Natalia. 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 Had been clean for about 100 days and then relapsed. Now has been clean for 7 days however he is feeling very anxious in particular found not set a good friend was just murdered earlier today and this is send him to a spiral. He says he was feeling acutely suicidal planning to OD on pills. Calmer now that he has been in the ED cooperative with staff but still says he feels like he is unsafe. He would be voluntary to [facility] if theyhave beds. No medical issues at this time feel that he is stable for [facility]. He has forward thinking ideas wants to get better asking to be readmitted other than drugs has access to a gun but really does not want to hurt himself. Suicide eval for completed by Dr Montano - comes out as high risk By: Elkin Fisher MD Time: 01/25 2144 Comment: Patient would like to be voluntary to [facility] but since there was no bed so I have bhp and evaluated by psych By: Elkin Fisher MD Time: 01/24 2217 Comment: Awaiting to hear back about the status of [facility] bed availability By: Minal Montano MD Time: 01/24 2230 Comment: [facility] beds are available, will voluntarily admit to [facility] By: Minal Montano MD Time: 01/24 2342 Comment: Has psych ready bed By: Elkin Fisher MD Suicide ideation Bipolar affective disorder, current episode hypomanic ([facility]/HCC) ([facility]) Methamphetamine abuse ([facility]) ([facility]) PTSD (post-traumatic stress disorder) I have seen and examined the patient on 01/25/2024. I agree with the findings and plan of care as documented in the resident's note. Minal Montano MD 01/25/242215 Elkin Fisher MD 01/25/24 2331 * Leora Steiner RN - 01/25/2024 8:47 PM CDT Bed: ED1-05 Expected date: 01/25/24 Expected time: 8:23 PM Means of arrival: Comments: [facility]HP OVERFLOW Leora Steiner RN 01/25/242046 * Gema Wooten RN - 01/25/2024 8:40 PM CDT Pt c/o of anxiety attack and SI with plan. Pt reports that he would overdose on pills. Pt does haveaccess to pills. Pt reports friend being murdered today. Denies HI/AH/VH. Hx of bipolar, anxiety and depression. documented in this encounter Miscellaneous Notes * Plan of Care - Yee Desai LCSW - 01/30/2024 8:32 AM CDT 01/30/24 0830 Discharge Summary Discharge Disposition Substance abuse facility Specify Facility [facility] Facility Contact Number Discharge Records Transfer Form Completed Equipment/Provider Needs No Home Needs Identified Anticipated discharge level of care Substance abuse facility Actual Discharge Level of Care Substance abuse facility Does Actual Level of Care Match Care Team Recommendation? Yes Post Acute Care Plan Home Care Services N/A OP Services N/A DME N/A Post Acute Care Facility N/A Discharge Additional Assistance Financial assistance Discharge medication assistance needed;Other (comment) (Uber/Lyft) Does the patient need discharge transport arranged? Yes Type of Transportation ([employer].) Has discharge transport been arranged? Yes Details of Transportation Patient discharged to [facility] (inpatient substance treatment) via [employer] transportation ([employer]/Lyft). D/C Transport Anticipated Date 01/30/24 D/C Transport Anticipated Time 829 Discharge Transportation Communication Mode of transport has been discussed with the patient/family. All are agreeable to the plan and understand their responsibilities to ensure the safe transfer. No further CM/SW intervention is anticipated at this time. Patient was voluntarily admitted on 01/25/2024 and discharged on 01/30/2024. His symptoms on admissionincluded SI with a plan to overdose. His discharge diagnosis was Unspecified Mood Disorder (HCC) and Methamphetamine Use Disorder, Moderate (HCC). Patient was expected to meet goals of participating in groups and agreeing to a safe discharge plan. Patient attended groups and participated actively in them. Patient participated actively in discharge planning process. SW interventions included initial social work assessment and support as needed. Patient was discharged to [facility] (inpatient substance treatment) and obtained transportation via [employer] (Uber/Lyft). Mode of transport was discussed with the patient, doctors, and nurses and all are agreeable to plan and understand their responsibilities to ensure a safe transfer. Patient has insurance that coversmedicine and follow up care. Patient medications were filled and sent with patient, per RN. Patientwas provided substance abuse resources. Patient has follow up scheduled with his outpatient provider at [facility]. Patient will receive social support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 in 09/2023 RPR - reactive 1:1024 and then 1:128 in 09/2023 and 1:64 in 10/2023 - Rx'd with doses of IM penicillin per patient in 2018 when initially diagnosed. * Plan of Care - Chanda Silva RN - 01/26/2024 2:49 AM CDT Goals: YURIDIA Summary: Phil Chase Problem: Depressed Mood Goal: LTG: Demonstrates reduced symptoms of depression and improved level of functioning by discharge Outcome: Ongoing Note: Phil Chase will be able to demonstrate reduced symptoms of depression and improved level of functioning by discharge. Problem: Ineffective Coping Goal: LTG: Verbalizes and enacts adaptive coping mechanisms by discharge Outcome: Ongoing Note: Phil Chase will be able to verbalize and enact adaptive coping mechanisms by discharge. Problem: Substance Abuse Goal: STG: Identify past triggers and ways to manage stressful/difficult situations in the future Outcome: Ongoing Note: Phil Chase will be able to identify past triggers and ways to manage stressful/difficult situations in the future. Problem: Suicide Risk/Attempt Goal: LTG: Reduction of suicidal thoughts and absence of suicidal behavior throughout admission andestablish a safety plan by discharge Outcome: Ongoing Note: Phil Chase will have a reduction of suicidal thoughts and absence of suicidal behavior throughout admission and establish a safety plan by discharge. Problem: Fall Risk Goal: Will remain free from falls Outcome: Ongoing Note: Phil Chase will remain free from falls. * ED Re-evaluation Note - Gen Figueroa MD - 01/25/2024 10:37 PM CDT ED Re-evaluation TRANSITION OF CARE: I, Gen Figueroa MD, am taking signout from Dr. Montano (Resident) under supervision of Attending. I have reviewed all pertinent vital signs, allergies, and history available in the chart. Summary: 28 y.o. male with bipolar disorder, anxiety, borderline personality disorder, PTSD, HIV and methamphetamine use presents with active SI with plan. No active HI, AVH. Pending: Dispo: Voluntary admit to [facility] ED Course as of 01/25/24 2342 Time: 01/25 2136 Comment: Voluntary admission paperwork signed by patient By: Minal Montano MD Time: 01/24 2139 Comment: ED attending-Natalia. 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 Had been clean for about 100 days and then relapsed. Now has been clean for 7 days however he is feeling very anxious in particular found not set a good friend was just murdered earlier today and this is send him to a spiral. He says he was feeling acutely suicidal planning to OD on pills. Calmer now that he has been in the ED cooperative with staff but still says he feels like he is unsafe. He would be voluntary to [facility] if theyhave beds. No medical issues at this time feel that he is stable for [facility]. He has forward thinking ideas wants to get better asking to be readmitted other than drugs has access to a gun but really does not want to hurt himself. Suicide eval for completed by Dr Montano - comes out as high risk By: Elkin Fisher MD Time: 01/25 2144 Comment: Patient would like to be voluntary to [facility] but since there was no bed so I have bhp and evaluated by psych By: Elkin Fisher MD Time: 01/24 2217 Comment: Awaiting to hear back about the status of [facility] bed availability By: Minal Montano MD Time: 01/24 2230 Comment: [facility] beds are available, will voluntarily admit to [facility] By: Minal Montano MD Time: 07/05 2342 Comment: Has psych ready bed By: Elkin Fisher MD Han, Jasper, MD Resident 01/26/24 0220 documented in this encounter Plan of Treatment Not on file documented as of this encounter Procedures Procedure Name Priority Date/Time Associated Diagnosis Comments URINALYSIS AND REFLEX TO MICROSCOPIC AND CULTURE STAT 01/25/2024 11:04 PM CDT DRUGS OF ABUSE SCREEN, URINE WITHOUT CONFIRMATION STAT 01/25/2024 11:04 PM CDT EGFR STAT 01/25/2024 9:13 PM CDT DIFFERENTIAL AUTO STAT 01/25/2024 9:1 3 PM CDT THYROID FUNCTION CASCADE Routine 01/25/2024 9:13 PM CDT CBC WITH AUTO DIFFERENTIAL STAT 01/25/2024 9:13 PM CDT BASIC METABOLIC PANEL STAT 01/25/2024 9:13 PM CDT documented in this encounter Results * Urinalysis reflex to microscopic and culture Urine (01/25/2024 11:04 PM CDT) Color, ur Straw Yellow Clarity, ur Clear Clear [facility] Specific gravity, ur 1.013 1.003 - 1.030 [facility] pH, urine 7.0 [facility] Comment: Interpretive Data ? Urine pH is affected by diet, medications, systemic acid-base disturbances, and renal tubular function. ??pH may affect urinary stone formation. ??For example, urine pH below 6.0 may help reduce the tendency for calcium phosphate stones and pH greater than 6.0 may reduce the tendency for uric acid stone formation. Source: Gonzalez ulike Current Interpretive Data was last revised on 2017 Protein, ur ql Trace Negative [facility] Glucose, ur ql Negative Negative [facility] Ketones, ur Negative Negative [facility] Bilirubin, ur Negative Negative [facility] Blood, ur Negative Negative [facility] Urobilinogen, ur <2.0 <2.0 mg/dL [facility] Nitrite, ur Negative Negative [facility] Leukocyte esterase, ur Negative Negative [facility] UA reflex comment Reflex conditions for microscopic UA and culture not met. [facility] Urine 01/25/2024 11:0 4 PM CDT 01/25/2024 11:08 PM CDT Minal Montano MD LAB MICROBIOLOGY - NERAL ORDERABLES Final Result [facility] Department [place] [address] * (ABNORMAL) Drugs of Abuse Screen, Urine without Confirmation (01/25/2024 11:04 PM CDT) Amphetamine, ur Not Detected CutOff 500ng/mL Comment: Interpretive Data - Amphetamines: ??Samples containing greater than 500 ng/mL d-methamphetamine ??or other cross-reacting amphetamine compounds are reported as positive. ??Amphetamine immunoassays are subject to significant false positive rates due to cross-reactivity of non-amphetamine drugs. Confirmatory testing required for definitive results. Current Interpretive Data was last reviewed 2023. Barbiturates, ur Not Detected CutOff 200ng/mL [facility] Comment: Interpretive Data - Barbiturates: ??Samples containing greater than 200 ng/mL secobarbital or other cross-reacting barbiturate compounds are reported as positive. ??False positive and false negative results are possible. Confirmatory testing required for definitive results. Current Interpretive Data was last reviewed 2023. Benzodiazepines, ur Not Detected CutOff 100ng/mL [facility] Comment: Interpretive Data - Benzodiazepines: ??Samples containing greater than 100 ng/mL nordiazepam or other cross-reacting compounds are reported as positive. False positive and false negative results are possible. Confirmatory testing required for definitive results. Current Interpretive Data was last reviewed 2023. Cannabinoids, ur Screen Positive, presumptive (A) CutOff 50 ng/mL [facility] Comment: Interpretive Data - Cannabinoids: ??Samples containing greater than 50 ng/mL delta-9 THC -COOH or other cross-reacting compounds are reported as positive. ??False positive and false negative results are possible. ??Confirmatory testing required for definitive results. Current Interpretive Data was last reviewed 2023. Cocaine, ur Not Detected CutOff 150ng/mL [facility] Comment: Interpretive Data - Cocaine: ??Samples [...] Opiates, ur Not Detected CutOff 300ng/mL [facility] Comment: Interpretive Data - Opiates: ??Samples [...] Data was last reviewed 2023. Urine Creatinine 124 mg/dL [facility] Comment: Interpretive Data Urine Creatinine: < 10 mg/dL is extremely dilute = or > 10 but < 20 mg/dL is dilute = or > 20 mg/dL is normal Current Interpretive Data was last revised on 2017. Urine 01/25/2024 11:0 4 PM CDT 01/25/2024 11:21 PM CDT Narrative [facility] - 01/25/2024 11:53 PM CDT Drug of Abuse screening is performed by immunoassay for medical purposes only. ??This is not to be used for Pain Management purposes. us Minal Montano MD LAB URINE ORDERABLES Final Result [facility] Department [place] [address] * eGFR (01/25/2024 9:13 PM CDT) eGFR 85 >=60 mL/min/1. 73 m2 Comment: Interpretive Data [...] interpretive data was last reviewed 2021. Blood 01/25/2024 9:13 PM CDT 01/25/2024 9:33 PM CDT us Minal Montano MD LAB BLOOD ORDERABLES Final Result [facility] [place] [address] * Differential, auto (01/25/2024 9:13 PM CDT) Neutrophil abs 2.1 1.5 - 6.5 K/cumm Imm gran abs 0.0 0.0 - 0.1 K/cumm [facility] Lymphocyte abs 1.8 0.8 - 3.3 K/cumm [facility] Monocyte abs 0.3 0.2 - 0.8 K/cumm [facility] Eosinophil abs 0.1 0.0 - 0.5 K/cumm [facility] Basophil abs 0.0 0.0 - 0.1 K/cumm [facility] Neutrophil pct 48.5 % [facility] Comment: Interpretive Data Percent cell count reference ranges are not reported, since discordance with absolute values may lead to misinterpretation of CBC data. Current Interpretive Data was last revised on 2017. Imm gran pct 0.2 % [facility] Comment: Interpretive Data Percent cell count reference ranges are not reported, since discordance with absolute values may lead to misinterpretation of CBC data. Current Interpretive Data was last revised on 2017. Lymphocyte pct 41.0 % [facility] Comment: Interpretive Data Percent cell count reference ranges are not reported, since discordance with absolute values may lead to misinterpretation of CBC data. Current Interpretive Data was last revised on 2017. Monocyte pct 7.2 % [facility] Comment: Interpretive Data Percent cell count reference ranges are not reported, since discordance with absolute values may lead to misinterpretation of CBC data. Current Interpretive Data was last revised on 2017. Eosinophil pct 2.6 % [facility] Comment: Interpretive Data Percent cell count reference ranges are not reported, since discordance with absolute values may lead to misinterpretation of CBC data. Current Interpretive Data was last revised on 2017. Basophil pct 0.5 % [facility] Comment: Interpretive Data Percent cell count reference ranges are not reported, since discordance with absolute values may lead to misinterpretation of CBC data. Current Interpretive Data was last revised on 2017. Blood 01/25/2024 9:13 PM CDT 01/25/2024 9:33 PM CDT Minal Montano MD LAB BLOOD ORDERABLES Final Result Performing Organization Address [facility]/ZIP Co de Phone Number [facility] Department [place] [address] * Thyroid Function Bertie (01/25/2024 9:13 PM CDT) Pathologist [facility] TSH 1.78 0.30 - 4.20 mcIUnit/mL Blood 01/25/2024 9:13 PM CDT 01/25/2024 9:33 PM CDT Minal Montano MD LAB BLOOD ORDERABLES Final Result Performing Organization Address [facility]/ZIP Co de Phone Number [facility] Department [place] [address] * Basic metabolic panel (01/25/2024 9:13 PM CDT) Pathologist [facility] Sodium 141 135 - 145 mmol/L Potassium, pl 4.3 3.3 - 4.9 mmol/L [facility] Chloride 103 97 - 110 mmol/L [facility] CO2 28 22 - 32 mmol/L [facility] Anion gap 10 2 - 15 mmol/L [facility] BUN 10 6 - 25 mg/dL [facility] Creatinine 1.18 0.80 - 1.30 mg/dL [facility] Glucose 88 70 - 199 mg/dL [facility] Comment: Interpretive Data Fasting glucose [...] 2022. Calcium 8.9 8.5 - 10.3 mg/dL [facility] Blood 01/25/2024 9:13 PM CDT 01/25/2024 9:33 PM CDT Minal Montano MD LAB BLOOD ORDERABLES Final Result [facility] Department [place] [address] * (ABNORMAL) CBC with auto differential (01/25/2024 9:13 PM CDT) [facility] Signature WBC 4.3 3.8 - 9.9 K/cumm Hgb 13.8 13.0 - 17.5 g/dL [facility] Hct 43.0 38.9 - 50.3 % [facility] Plt 281 150 - 400 K/cumm [facility] MPV 9.8 9.1 - 12.3 fL [facility] RBC 5.26 4.30 - 5.80 M/cumm [facility] MCV 81.7 81.3 - 96.4 fL [facility] MCH 26.2(L) 27.1 - 33.3 pg [facility] MCHC 32.1(L) 32.3 - 35.7 g/dL [facility] RDW CV 14.8 11.1 - 14.9 % [facility] RDW SD 44.3 35.7 - 48.1 fL [facility] NRBC abs 0.00 0.00 - 0.01 K/cumm [facility] Blood 01/25/2024 9:13 PM CDT 01/25/2024 9:33 PM CDT us Minal Montano MD LAB BLOOD ORDERABLES Final Result [facility] [place] [address] documented in this encounter Visit Diagnoses Diagnosis Unspecified mood disorder (HCC)- Primary Suicide ideation Suicidal ideation Bipolar affective disorder, current episode hypomanic (CMS/HCC) (HCC) Methamphetamine abuse (CMS/HCC) (HCC) Nondependent amphetamine or related acting sympathomimetic abuse, unspecified PTSD (post-traumatic stress disorder) Posttraumatic stress disorder Methamphetamine use disorder, moderate (HCC) HIV disease (CMS/HCC) (HCC) Human immunodeficiency virus [HIV] disease Syphilis Unspecified syphilis Cannabis use disorder, severe (HCC) Routine general medical examination at a health care facility PTSD (post-traumatic stress disorder) Posttraumatic stress disorder Borderline personality disorder (CMS/HCC) (HCC) Borderline personality disorder Suicide ideation Suicidal ideation documented in this encounter Admitting Diagnoses Diagnosis Suicide ideation Suicidal ideation PTSD (post-traumatic stress disorder) Posttraumatic stress disorder documented in this encounter Administered Medications Inactive Administered Medications - up to 3 most recent administrations Medication Order MAR Action Action Date Dose Rate Site acetaminophen (TYLENOL) tablet 650 mg 650 mg, oral, Every 4 hours PRN, 1st line for pain, Starting on 01/26/24 at 0303 ARIPiprazole (ABILIFY) tablet 5 mg 5 mg, oral, Daily, First dose on 01/26/24 at 0900 Given 01/30/2024 8:22 AM CDT 5 mg Given 01/29/2024 8:38 AM CDT 5 mg Given 01/28/2024 8:31 AM CDT 5 mg xymgerzhdye-zogaotuwbjerc-uyhgbcjje (BIKTARVY) 50-200-25 mg per tablet 1 tablet 1 tablet, oral, Daily, First dose on 01/26/24 at 0900, May be dissolved in 240 mL of water. Give 2 hrs before or 6 hrs after MVI, antacids, or other products containing sucralfate, magnesium, aluminum, iron, or zinc., Indications: HIV infectionIndications:HIV infection Given 01/30/2024 8:22 AM CDT 1 tablet Given 01/29/2024 8:38 AM CDT 1 tablet Given 01/28/2024 8:31 AM CDT 1 tablet doxepin (SINEquan) capsule 25 mg 25 mg, oral, Nightly, First dose on 01/26/24 at 2100 Given 01/29/2024 8:35 PM CDT 25 mg Given 01/28/2024 8:30 PM CDT 25 mg Given 01/27/2024 8:51 PM CDT [address] (CYMBALTA) extended release capsule 60 mg 60 mg, oral, Daily, First dose on 01/26/24 at 0900, Capsule may be opened and contents mixed with applesauce or apple juice ONLY. Do not crush or chew capsule Given 01/30/2024 8:22 AM CDT 60 mg Given 01/29/2024 8:38 AM CDT 60 mg Given 01/28/2024 8:31 AM CDT 60 mg hydrOXYzine (ATARAX) tablet 25 mg 25 mg, oral, Every 6 hours PRN, anxiety, Starting on 01/26/24 at 0301 Given 01/30/2024 8:22 AM CDT 25 mg Given 01/29/2024 8:35 PM CDT 25 mg Given 01/28/2024 8:34 PM CDT 25 mg OLANZapine (ZyPREXA ZYDIS) disintegrating tablet 10 mg 10 mg, oral, Every 8 hours PRN, agitation, Starting on 01/26/24 at 0302 OLANZapine (ZyPREXA) 10 mg in sterile water 2 mL (5 mg/mL) syringe 10 mg, intramuscular, Every 8 hours PRN, other, severe agitation, Starting on 01/26/24 at 0302, Reconstitute 10 mg vial with 2.1 mL SWFI. Resulting solution is ~5 mg/mL. Use immediately (within 1 hour) following reconstitution. traZODone (DESYREL) tablet 50 mg 50 mg, oral, Nightly PRN, sleep, Starting on 01/26/24 at 0300 Given 01/29/2024 8:35 PM CDT 50 mg documented in this encounter Discontinued Medications Medication Sig Discontinue Reason Start Date End Da te ARIPiprazole (ABILIFY) 5 mg tabletIndications:Depr ession Treatment Adjunct Take 1 tablet (5 mg total) by mouth daily 10/26/2023 01/29/2024 doxepin (SINEquan) 25 mg capsuleIndications:dep ression Take 1 capsule (25 mg total) by mouth nightly 10/26/2023 01/29/[address] (CYMBALTA) 60 mg capsule Take 1 capsule (60 mg total) by mouth daily Stop Taking at Discharge 10/26/2023 01/30/2024 hydrOXYzine (ATARAX) 25 mg tabletIndications:anxi ety Take 1 tablet (25 mg total) by mouth every 4 (four) hours as needed for anxiety Stop Taking at Discharge 10/26/2023 01/30/2024 bictegravir-emtricitab ine-tenofovir (BIKTARVY) 50-200-25 mg tabletIndications:HIV infection Take 1 tablet by mouth daily Stop Taking at Discharge 10/26/2023 01/30/2024 documented as of this encounter Active and Recently Administered Medications Times are shown in CDT. Scheduled Medication Order 01/28/2024 01/29/2024 01/30/2024 ARIPiprazole (ABILIFY) tablet 5 mg 5 mg, oral, Daily, First dose on 01/26/24 at 0900 0831 (Given - Provider: Beverly Putnam RN) 0838 (Given - Provider: Edd Stubbs) 0822 (Given - Provider: Chas Osorio RN) bictegravir-emtricitab ine-tenofovir (BIKTARVY) 50-200-25 mg per tablet 1 tablet 1 tablet, oral, Daily, First dose on 01/26/24 at 0900, May be dissolved in 240 mL of water. Give 2 hrs before or 6 hrs after MVI, antacids, or other products containing sucralfate, magnesium, aluminum, iron, or zinc., Indications: HIV infection 0831 (Given - Provider: Beverly Putnam RN) 0838 (Given - Provider: Edd Stubbs) 0822 (Given - Provider: Chas Osorio, RN) doxepin (SINEquan) capsule 25 mg 25 mg, oral, Nightly, First dose on 01/26/24 at 2100 2029 (Given - Provider: Lloyd Starr, RN) 2034 (Given - Provider: Margaret White, VICTOR MANUEL) DULoxetine DR (CYMBALTA) extended release capsule 60 mg 60 mg, oral, Daily, First dose on 01/26/24 at 0900, Capsule may be opened and contents mixed with applesauce or apple juice ONLY. Do not crush or chew capsule 08 (Given - Provider: Beverly Putnam RN) 0838 (Given - Provider: Edd Stubbs) 0822 (Given - Provider: Chas Osorio, VICTOR MANUEL) PRN Medication Order 01/28/2024 01/29/2024 01/30/2024 acetaminophen (TYLENOL) tablet 650 mg 650 mg, oral, Every 4 hours PRN, 1st line for pain, Starting on 01/26/24 at 0303 hydrOXYzine (ATARAX) tablet 25 mg 25 mg, oral, Every 6 hours PRN, anxiety, Starting on 01/26/24 at 0301 2033 (Given - Provider: Lloyd Starr, VICTOR MANUEL) 2034 (Given - Provider: Margaret White, VICTOR MANUEL) 08 (Given - Provider: Chas Osorio, VICTOR MANUEL) OLANZapine (ZyPREXA ZYDIS) disintegrating tablet 10 mg(Linked Group 1) 10 mg, oral, Every 8 hours PRN, agitation, Starting on 01/26/24 at 0302 OLANZapine (ZyPREXA) 10 mg in sterile water 2 mL (5 mg/mL) syringe(Linked Group 1) 10 mg, intramuscular, Every 8 hours PRN, other, severe agitation, Starting on 01/26/24 at 0302, Reconstitute 10 mg vial with 2.1 mL SWFI. Resulting solution is ~5 mg/mL. Use immediately (within 1 hour) following reconstitution. traZODone (DESYREL) tablet 50 mg 50 mg, oral, Nightly PRN, sleep, Starting on 7/6/24 at 0300 2034 (Given - Provider: Margaret White RN) Linked Groups Order Group 1: OLANZapine (ZyPREXA ZYDIS) disintegrating tablet 10 mgJump to med 10 mg, oral, Every 8 hours PRN, agitation, Starting on 01/26/24 at 0302 Or OLANZapine (ZyPREXA) 10 mg in sterile water 2 mL (5 mg/mL) syringeJump to med 10 mg, intramuscular, Every 8 hours PRN, other, severe agitation, Starting on 01/26/24 at 0302, Reconstitute 10 mg vial with 2.1 mL SWFI. Resulting solution is ~5 mg/mL. Use immediately (within 1 hour) following reconstitution. documented in this encounter Orders Medications Ordered That Prasad ht Not Have Been Administered Count Last Ordered Date First Ordered Date acetaminophen (TYLENOL) tablet 650 mg 1 12/2023 OLANZapine (ZyPREXA ZYDIS) d isintegrating tablet 10 mg 1 01/26/2024 OLANZapine (ZyPREXA) 10 mg i n sterile water 2 mL (5 mg/mL) syringe 1 01/26/2024 Diet Count Last Ordered Date First Orde red Date ADULT DISCHARGE DIET 1 01/29/2024 Nursing Count Last Ordered Date First Orde red Date DISCHARGE ACTIVITY 1 01/29/2024 DISCHARGE CALL PROVIDER 5 01/29/2024 DISCHARGE INSTRUCTIONS 2 01/29/2024 WEIGH PATIENT 1 01/26/2024 Consult Count Last Ordered Date First Orde red Date IP CONSULT TO INTERNAL MEDICINE 1 Admission Count Last Ordered Date First Orde red Date ADMIT TO INPATIENT 1 01/25/2024 Discharge Count Last Ordered Date First Orde red Date DISCHARGE PATIENT 1 01/29/2024 CORE MEASURES Count Last Ordered Date First Ord ered Date REASON FOR NO VTE PROPHYLAXIS AT ADMISSION 1 01/26/2024 documented in this encounter Care Teams Rubber Stamp Maker Relationship Specialty Start Date End Date Mady Sullivan MD [facility] [address] [address] [address] PCP - General Infectious Diseases 10/12/23 No, Physician 10/12/23 documented as of this encounter
--- OUTSIDE RECORDS SUMMARY | 2024-08-10 03:34 | XMS_ITS | Encounter Summary ---
Author Organization [facility] Healthcare Address [address] [place] [address] Care Team Providers Care Commercial Collections Driver Name Role Phone Mady Sullivan MD Primary Care Provider No, Physician Unavailable Encounter Details Date Type Department Care Team (Late st Contact Info) Description 03/02/2024 10:23 AM CDT - 03/03/2024 2:51 AM CDT Emergency [facility] Emergency Department [id number] [place] [address] Jn Delacruz MD [id number] [place] [address] [address] [place] [address] Borderline personality disorder (CMS/HCC) (HCC) (Primary Dx); Episode of recurrent major depressive disorder, unspecified depression episode severity (HCC) Discharge Disposition: Discharge to psych hospital or psych unit Social History Tobacco Use Types Packs/Day Years Used Date Smoking Tobacco: Never Smokeless Tobacco: Never [facility] Utilities Answer Date Recorded In the past 12 months has [employer] gas, oil, or water [employer] threatened to shut off services in your [...] often do you attend chur ch or roman catholic services? Never 02/24/2024 Do you belong to any clubs o r organizations such as voodoo groups, unions, fraternal or athletic groups, or [...] staff should administer the PHQ-9) 4 02/24/2024 [facility] - [...] or living in a prison (including now)? 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 male who presents to [facility] ED[facility] for admission. The prior to admission home medication list was reviewed by pharmacy. No current facility-administered medications for this encounter. Current Outpatient Medications: ARIPiprazole (ABILIFY) 5 mg tablet, Take 1 tablet (5 mg total) by mouth daily, Disp: 30 tablet, Rfl: 0 kmooktztwqe-nockcrlqrxbkb-ndtfrjplf (Biktarvy) 50-200-25 mg tablet, Take 1 tablet by mouth daily, Disp: , Rfl: doxepin (SINEquan) 25 mg capsule, Take 1 capsule (25 mg total) by mouth nightly, Disp: 30 capsule, Rfl: [address] (CYMBALTA) 60 mg capsule, Take 1 capsule (60 mg total) by mouth daily, Disp: 30 capsule, Rfl: 0 cloNIDine (CATAPRES) 0.1 mg tablet, Take 1 tablet (0.1 mg total) by mouth 2 (two) times a day as needed for high blood pressure, Disp: 60 tablet, Rfl: 0 hydrOXYzine (ATARAX) 50 mg tablet, Take 1 tablet (50 mg total) by mouth every 6 (six) hours as needed, Disp: , Rfl: The patient???s home medication list has been reconciled and updated as follows: - Orders from medication that were removed because the patient is no longer taking: none - Orders that the patient is taking at home were added to the home medication list: Hydroxyzine prn - Orders on the medication list that the patient is taking differently (doses/frequency/formulation): Patient reported he takes welbutrin but didn't know the dose and was not taking during recent admission to [facility], the current list is consistent with what he was taking at [place]. - Additional comments/recommendations: Discussed with patient. Used hospital medical records to update list. Sources of information for this medication reconciliation include: hospital medical records, patient, and prescription fill history Marina Fontana RPh 03/02/2024 5:15 PM 3 * Marina Fonatna RP - 03/02/2024 5:17 PM CDT Pharmacy Medication Reconciliation Note Patient Phil Chase is a 28 y.o. male who presents to [facility] ED[facility] for admission. The prior to admission home medication list was reviewed by pharmacy. No current facility-administered medications for this encounter. Current Outpatient Medications: ARIPiprazole (ABILIFY) 5 mg tablet, Take 1 tablet (5 mg total) by mouth daily, Disp: 30 tablet, Rfl: 0 rjcswdixlwv-knxxecfmbhjko-amlidmtti (Biktarvy) 50-200-25 mg tablet, Take 1 tablet by mouth daily, Disp: , Rfl: doxepin (SINEquan) 25 mg capsule, Take 1 capsule (25 mg total) by mouth nightly, Disp: 30 capsule, Rfl: [address] (CYMBALTA) 60 mg capsule, Take 1 capsule (60 mg total) by mouth daily, Disp: 30 capsule, Rfl: 0 cloNIDine (CATAPRES) 0.1 mg tablet, Take 1 tablet (0.1 mg total) by mouth 2 (two) times a day as needed for high blood pressure, Disp: 60 tablet, Rfl: 0 hydrOXYzine (ATARAX) 50 mg tablet, Take 1 tablet (50 mg total) by mouth every 6 (six) hours as needed, Disp: , Rfl: The patient???s home medication list has been reconciled and updated as follows: - Orders from medication that were removed because the patient is no longer taking: none - Orders that the patient is taking at home were added to the home medication list: Hydroxyzine prn - Orders on the medication list that the patient is taking differently (doses/frequency/formulation): Patient reported he takes welbutrin but didn't know the dose and was not taking during recent admission to [facility], the current list is consistent with what he was taking at [place]. - Additional comments/recommendations: Discussed with patient. Used hospital medical records to update list. Sources of information for this medication reconciliation include: patient and prescription fill history Marina Fontnaa RPh 03/02/2024 5:15 PM 3 documented in this encounter ED Notes * Jn Delacruz MD - 03/02/2024 12:33 PM CDT HPI No chief complaint on file. HPI Patient is brought to the ER by EMS suicidal attempt. Patient wantedly fell from the stairs this morning. He rolled down 15 stairs. He denies loss of consciousness. He complains of neck pain and painon the entire right side of the body. He apparently took 8 tablets of Abilify last night to kill himself. Patient is father apparently yesterday from drug overdose on that news worsened his depression. Patient has borderline personality disorder and history of suicidal attempts in the past. Hewas admitted in behavioral health unit multiple times in the past for similar symptoms. He was admitted at [facility] facility from 02/23/2024 until 02/27/2024. He was in our ER yesterday for similar symptoms but wanted to go back to his rehab. He was discharged. Patient is currently in a rehabilitation center for chronic drug use. He uses methamphetamines. Patient History: Patient Active Problem List Diagnosis Date Noted Suicide attempt ([facility]) 02/24/2024 Lower extremity pain, right 02/24/2024 Stimulant use disorder 02/24/2024 Suicide ideation 01/29/2024 Cannabis use disorder, severe ([facility]) 01/26/2024 Routine general medical examination at a health care facility 01/26/2024 PTSD (post-traumatic stress disorder) 10/12/2023 Vertigo 10/11/2023 Unspecified mood disorder ([facility]) 10/10/2023 HIV disease ([facility]) ([facility]) 10/03/2023 Syphilis 10/03/2023 Inguinal hernia 10/03/2023 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 Plaque psoriasis 10/03/2023 Methamphetamine use disorder, moderate ([facility]) 10/03/2023 Borderline personality disorder, rule out other organic causes of unusual pEX/MSE 10/02/2023 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 Condyloma 10/29/2020 Past Medical History: Diagnosis Date Borderline personality disorder ([facility]) ([facility]) Depression with suicidal ideation HIV (human immunodeficiency virus infection) ([facility]) Methamphetamine use disorder, moderate, in early remission ([facility]) Neuropathy ([facility]) PTSD (post-traumatic stress disorder) Syphilis (acquired) Rx'd with 3 IM doses of Penicillni per patient Past Surgical History: Procedure Laterality Date LUMBAR PUNCTURE WO INJECTION, DIAGNOSTIC N/A 10/12/2023 Family History Problem Relation Age of Onset Hypertension Maternal Grandmother Diabetes type II Maternal Grandmother Social History Tobacco Use Smoking status: Never Smokeless tobacco: Never Vaping Use Vaping status: Never Used Substance and Sexual Activity Alcohol use: Not on file Drug use: Not Currently Types: Methamphetamines, Alcohol, Marijuana Sexual activity: Defer Social History Social History Narrative Born and raised: [place], moved to [facility] when 8 yo Currently lives: inpatient substance abuse rehab, pt says at [facility], but consult note says at [facility] Feels safe: yes Access to firearms: no currently while at inpatient substance abuse rehab Education: per pt he graduated and college with a degree in computer science Work: Not currently employed, 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 Pertinent positives are as mentioned in the history of present illness. Rest of the review of systems are negative. Physical Exam ED Triage Vitals Temp Pulse Resp BP SpO2 -- -- -- -- -- Temp src Heart Rate Source Patient Position BP Location FiO2 (%) -- -- -- -- -- Height Height Method Weight Weight Method -- -- -- -- Physical Exam General: Patient is awake, alert and in no acute distress. Head: No obvious injuries, bruises or ecchymosis noticed. Neck: External neck appears normal. No swelling. C-collar in place prior to the arrival. Eyes: Pupils are equal, round and reactive to light. . Mouth: Oral mucosa is moist. Respiratory: Not in any respiratory distress. Respiratory rate is normal. Lungs are clear. No crackles or wheezing. Cardiovascular: Regular rate and rhythm. No murmurs/rubs/gallops. Gastrointestinal: Abdomen is normal in appearance. Soft and nontender. Skin: No obvious bruises or lacerations noticed. Musculoskeletal: No swelling or deformities. Mild tenderness is present on palpation of the right hip joint. Flexion is slightly painful in the right hip joint. Range of motion is normal in all otherextremities. Back: No tenderness on palpation of thoracic or lumbar spine. Psychiatry: Anxious. Depressed. Affect is flat. Suicidal. Neurology: Alert and oriented x4. Strength is 5/5 in all extremities. Sensations are normal. No gross focal neurological deficits noticed. MDM Medical Decision Making Amount and/or Complexity of Data Reviewed Labs: ordered. Radiology: ordered. I reviewed patient's old medical records Differential diagnosis: Borderline personality disorder, major depression, hip sprain, hip fracture XR Hip Right 2 or 3 Views W Pelvis Final Result No acute fracture or subluxation is seen. No significant degenerative changes. Electronically signed by: Tanja Thompson M.D. CT Cervical Spine WO Contrast Final Result 1. No acute cervical fracture. Electronically signed by: Tanja Thompson M.D. Labs Reviewed URINALYSIS AND REFLEX TO MICROSCOPIC AND CULTURE COVID-19 CORONAVIRUS RNA DRUGS OF ABUSE SCREEN, URINE WITH REFLEX CONFIRMATION ETHANOL CBC WITH AUTO DIFFERENTIAL COMPREHENSIVE METABOLIC PANEL ACETAMINOPHEN LEVEL SALICYLATE LEVEL 28-year-old male with a history of borderline personality disorder is brought to the ER for suicidal attempt. His father yesterday from drug overdose. He complains of worsening depression since then. He wants to kill himself. Patient wantedly fell from the stairs this morning. He rolled down 15 stairs. He denies loss of consciousness. He does not have any obvious injuries, bruising, lacerations or ecchymosis. He is fully alert and oriented. CT scan of the cervical spine did not show any acute abnormalities. Laboratory workup did not show any significant abnormalities. [facility] is consulted. Patient was admitted in a Behavioral Health unit multiple times in the past for similar symptoms. He was admitted at [facility] facility from 02/23/2024 until 02/27/2024. After discussing the case, I transferred the care of the patient to Dr. Jean-Paul Martinez MD. Final diagnoses: Borderline personality disorder (CMS/HCC) ([facility]) Episode of recurrent major depressive disorder, unspecified depression episode severity (HCC) Jn Delacruz MD 03/02/24 1710 documented in this encounter Miscellaneous Notes * ED Re-evaluation Note - Jean-Paul Martinez, - 03/02/2024 5:12 PM CDT ED Re-evaluation 5:12 p.m. I assumed care of this patient at shift change and I received report from the outgoing physician I reviewed the patient's chart Currently waiting for intake assessment and their recommendations. 10:35 p.m. Dispo was handled by Jean-Paul Arellano DO 03/02/242235 documented in this encounter Plan of Treatment Scheduled Orders Name Type Priority Associated Diagnoses Orde r Schedule Urinalysis reflex to microscopic and culture Urine Microbiology STAT STAT for 1 Occurrences starting 03/02/2024 until 03/02/2024 documented as of this encounter Procedures Procedure Name Priority Date/Time Associated Diagnosis Comments XR HIP RIGHT W PELVIS 2 OR 3 VIEWS ED 03/02/2024 11:[address] CERVICAL SPINE WO CONTRAST ED 03/02/2024 11:20 AM CDT documented in this encounter Results * XR Hip Right 2 or 3 Views W Pelvis (03/02/2024 11:24 AM CDT) Anatomical Region Laterality Modality Lower Extremities, Hip, Pelvis Right C omputed Radiography 03/02/2024 11:4 9 AM CDT Impressions 03/02/2024 11:49 AM CDT No acute fracture or subluxation is seen. ??No significant degenerative changes. Electronically signed by: Tanja Thompson M.D. Narrative 03/02/2024 11:49 AM CDT EXAMINATION: ?? XR HIP RIGHT 2 OR 3 VIEWS W PELVIS DATE: ?? 03/02/2024 11:05 AM HISTORY: ??Hip pain, acute, fracture suspected, initial exam (Age => 48y) COMPARISON: ??02/23/2024. ?? Procedure Note Tanja Thompson MD - 03/02/2024 EXAMINATION: XR HIP RIGHT 2 OR 3 VIEWS W PELVIS DATE: 03/02/2024 11:05 AM HISTORY: Hip pain, acute, fracture suspected, initial exam (Age => 48y) COMPARISON: 02/23/2024. IMPRESSION: No acute fracture or subluxation is seen. No significant degenerative changes. Electronically signed by: Tanja Thompson M.D. Jn Delacruz MD IMG XR PROCEDURES Final Result * CT Cervical Spine WO Contrast (03/02/2024 11:20 AM CDT) Anatomical Region Laterality Modality Spine N/A Computed Tomogra phy 03/02/2024 11:3 8 AM CDT Impressions 03/02/2024 11:38 AM CDT 1. No acute cervical fracture. Electronically signed by: Tanja Thompson M.D. Narrative 03/02/2024 11:38 AM CDT EXAMINATION: CT cervical spine without contrast DATE: ??03/02/2024 11:10 AM HISTORY: Neck trauma, dangerous injury mechanism (Age 16-64y) TECHNIQUE: Standard CT cervical spine protocol without contrast with coronal and sagittal reformatted images. ?? COMPARISON: 08/01/2017 FINDINGS: There is straightening with mild reversal of the cervical lordosis. There is good vertebral body height and alignment. ??Mild loss of disc height is seen at C6-C7. ??Atlantoaxial alignment and craniocervical alignment are preserved. ??The dens is intact. There is no acute fracture or subluxation. ??No significant degenerative changes. Procedure Note Tanja Thompson MD - 03/02/2024 EXAMINATION: CT cervical spine without contrast DATE: [...] fracture. Electronically signed by: Tanja Thompson M.D. Jn Perez Nadipelli MD IMG CT PROCEDURES Final Result documented in this encounter Visit Diagnoses Diagnosis Borderline personality disorder (CMS/HCC) (HCC)- Primary Borderline personality disorder Episode of recurrent major depressive disorder, unspecified depression episode severity (HCC) documented in this encounter Discontinued Medications Medication Sig Discontinue Reason Start Date End Da te bictegravir-emtricitabin e-tenofovir (BIKTARVY) 50-200-25 mg tabletIndications:HIV infection Take 1 tablet by mouth daily 01/30/2024 03/02/2024 bictegravir-emtricitabin e-tenofovir (BIKTARVY) 50-200-25 mg tabletIndications:HIV infection Take 1 tablet by mouth daily 02/26/2024 03/02/2024 documented as of this encounter Historical Medications * This list may reflect changes made after this encounter. bictegravir-emtri citabine-tenofovi r (Biktarvy) 50-200-25 mg tablet Take 1 tablet by mouth daily 08/08/2023 04/07/2024 hydrOXYzine (ATARAX) 50 mg tablet Take 1 tablet (50 mg total) by mouth every 6 (six) hours as needed 02/08/2024 04/14/2024 added in this encounter Additional Health Concerns Infection Onset Date Last Indicated Resolved Time COVID: Suspected 03/02/2024 03/02/2024 03/02/2024 11:51 AM CDT documented as of this encounter Care Teams Commercial Collections Driver Relationship Specialty Start Date End Date Mady Sullivan MD [id number] [address] PCP - General Infectious Diseases 10/12/23 No, Physician 10/12/23 documented as of this encounter
--- OUTSIDE RECORDS SUMMARY | 2024-08-10 03:34 | XMS_ITS | Encounter Summary ---
Author Organization [facility] Healthcare Address [address] [place] [address] Care Team Providers Care Railway Switchman Name Role Phone Mady Sullivan MD Primary Care Provider No, Physician Unavailable Encounter Details Date Type Department Care Team (Latest Contact Info) Description 03/03/2024 2:51 AM CDT - 03/03/2024 11:59 PM CDT Hospital Encounter [facility] [address] [place], [place] [id number] Emergency, Room R Discharge Disposition: Discharge to home or self care Social History Tobacco Use Types Packs/Day Years Used Date Smoking Tobacco: Former Cigarettes Passive Smoke Exposure: Current Smokeless Tobacco: Never [facility] Utilities Answer Date Recorded In the past 12 months has [facility] [employer], gas, oil, or water [employer] threatened to shut off services in [...] often do you attend chur ch or yazdanism services? Never 02/24/2024 Do you belong to any clubs o r organizations such as restoration groups, unions, fraternal or athletic groups, or [...] staff should administer the PHQ-9) 4 02/24/2024 [facility] [...] or living in a half-way (including now)? 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 Gender Identity Not on file Sexual Orientation [...] Author No 02/24/2024 10:18 AM TAYOManda Ibrahim MSW * Because of a physical, mental, [...] Entry Date Author No 02/24/2024 10:18 AM TAYOManda Ibrahim AIDE documented in this encounter Medications at Time [...] Discharge Disposition Disposition Code Departure Means Destination Discharge to home or self care documented in this encounter Plan of Treatment Not on file documented as of this encounter Visit Diagnoses Not on filedocumented in this encounter Care Teams Railway Switchman Relationship Specialty Start Date End Date Mady Sullivan MD [address] [address] PCP - General Infectious Diseases 10/12/23 No, Physician 10/12/23 documented as of this encounter
--- OUTSIDE RECORDS SUMMARY | 2024-08-10 03:34 | XMS_ITS | Encounter Summary ---
Author Organization [facility] Healthcare Address [address] [place] [address] Care Team Providers Care Sock Knitting Machine Operator Name Role Phone Mady Sullivan MD Primary Care Provider No, Physician Unavailable Encounter Details Date Type Department Care Team (Late st Contact Info) Description 04/07/2024 Telephone [facility] [address] [place] [address] 4th [address] [place] [address] Marisol Subramanian Social History Tobacco Use Types Packs/Day Years Used Date Smoking Tobacco: Former Cigarettes Passive Smoke Exposure: Current Smokeless Tobacco: Never [facility] Utilities Answer Date Recorded In the past 12 months has [employer], gas, oil, or water company threatened [...] often do you attend chur ch or presybeterian services? Never 04/07/2024 Do you belong to [...] Date Recorded PHQ-2 Total Score 4 04/07/2024 [facility] - Occupational [...] any time in the past 12 m [facility], were you homeless or living [...] on file Legal Sex Male 11:02 PM [employer] FORMER Gender Identity Not on file Sexual Orientation [...] 02/24/2024 10:18 AM CDT Hardin, Manda Sherine, SUBSTATION INSPECTOR * Do you have serious difficulty walking or climbing stairs? Answer Date of Assessment Author No 02/24/2024 10:18 AM CDT Manda Hardin, SUBSTATION INSPECTOR * Do you have serious difficulty dressing or bathing? Answer Date of Assessment Author No 02/24/2024 10:18 AM CDT Manda Hardin, SUBSTATION INSPECTOR * Because of a physical, mental, [...] * Telephone Encounter - Marisol Subramanian - 04/07/2024 2:17 PM CDT Lmom schedule pt neuro appointment documented in this encounter Plan of Treatment Not on file documented as of this encounter Visit Diagnoses Not on filedocumented in this encounter Additional Health Concerns Infection Onset Date Last Indicated Resolved Time Ring Surveillance 04/06/2024 04/06/2024 04/13/2024 3:05 AM CDT documented as of this encounter Care Teams Sock Knitting Machine Operator Relationship Specialty Start Date End Date Mady Sullivan MD [address] [facility] [address] [place] [address] PCP - General Infectious Diseases 10/12/23 No, Physician 10/12/23 documented as of this encounter
--- OUTSIDE RECORDS SUMMARY | 2024-08-10 03:34 | XMS_ITS | Encounter Summary ---
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 CULTURE STAT 02/23/2024 9:56 PM CDT URINALYSIS, MICROSCOPIC ONLY STAT 02/23/2024 9:56 PM CDT POCT LACTATE - DEVICE Routine 02/23/2024 9:12 PM CDT XR TIBIA FIBULA RIGHT2 VIEWS ED 02/23/2024 9:07 PM CDT XR KNEE RIGHT 1 OR 2 VIEWS ED 02/22 9:07 PM CDT XR HIP RIGHT W PELVIS 2 OR 3 VIEWS ED 02/23/2024 9:07 PM CDT XR FEMUR RIGHT 2 OR MORE VIEWS ED 02/23/2024 9:06 PM CDT THROMBOELASTOMETRY PANEL - HEPARIN STAT 02/23/2024 9:02 PM CDT THROMBOELASTOMETRY PANEL - INTRINSIC STAT 02/23/2024 9:02 PM CDT THROMBOELASTOMETRY PANEL - FIBRINOGEN STAT 02/23/2024 9:02 PM CDT THROMBOELASTOMETRY PANEL - EXTRINSIC STAT 02/23/2024 9:02 PM CDT THROMBOELASTOMETRY PANEL STAT 024 9:02 PM CDT DRUGS OF ABUSE SCREEN, URINE WITH REFLEX CONFIRMATION STAT 02/23/2024 9:02 PM CDT EGFR STAT 02/23/2024 9:02 PM CDT DIFFERENTIAL AUTO STAT 02/23/2024 9:0 2 PM CDT CBC WITH AUTO DIFFERENTIAL STAT 02/22 9:02 PM CDT TYPE AND SCREEN STAT 02/23/2024 9:02 PM CDT BLOOD GAS, VENOUS STAT 02/23/2024 9:0 2 PM CDT ETHANOL STAT 02/23/2024 9:02 PM CDT BASIC METABOLIC PANEL STAT 02/23/2024 9:02 PM CDT documented in this encounter Results * HIV-1 RNA PCR, quantitative Blood (02/26/2024 6:56 PM CDT) [facility] HIV-1 RNA Not Detected [facility] Comment: The quantifiable range of this assay is 20 copies/mL to 10,000,000 copies/mL (1.30 log copies/mL to 7.00 log copies/mL). ??Testing was performed by the NEERU 6800 HIV-1 Test([employer] Testing performed at [facility] Current Interpretive Data was last revised on 2021. Blood 02/26/2024 6:56 PM CDT 02/27/2024 2:20 PM CDT Jules Metz MD LAB MICROBIOLOGY - GENER AL ORDERABLES Final Result Performing Organization Address [facility] de Phone Number [facility] [place] [address] BJ * (ABNORMAL) RPR Titer Blood (02/26/2024 9:23 AM CDT) RPR qn 1:64(A) Nonreactive Blood 02/26/2024 9:23 AM CDT 02/26/2024 9:46 AM CDT Jules Metz MD LAB MICROBIOLOGY - GENER AL ORDERABLES Final Result Performing Organization Address [facility] [place] [address] * (ABNORMAL) Treponemal IgG/IgM Blood (02/26/2024 9:23 AM CDT) Pathologist [facility] Treponemal IgG/IgM Reactive( A) Nonreactive Comment: Interpretive Data: If test is reported as EQUIVOCAL, a new sample should be drawn in two weeks for testing. Current interpretive data was last revised on 2018. Blood 02/26/2024 9:23 AM CDT 02/26/2024 9:46 AM CDT Jules Metz MD LAB MICROBIOLOGY - GENER AL ORDERABLES Final Result Performing Organization Address [facility] de Phone Number [facility] Department [place] [address] * (ABNORMAL) RPR Blood (02/26/2024 9:23 AM CDT) Pathologist [facility] RPR Reactive(A ) Nonreactive Blood 02/26/2024 9:23 AM CDT 02/26/2024 9:46 AM CDT Jlues Metz MD LAB MICROBIOLOGY - GENER AL ORDERABLES Final Result Performing Organization Address [facility] de Phone Number [facility] [place] [address] * (ABNORMAL) Urinalysis, microscopic only (02/23/2024 9:56 PM CDT) Pathologist [facility] WBC, ur 0-5 0 - 5 /HPF RBC, ur 0-2 0 - 2 /HPF [facility] Mucous, ur Present(A) [facility] Hyaline casts, ur 1-5 0 - 10 /LPF [facility] Culture Reflex Comment Reflex conditions for urine culture (WBC >10) not met. [facility] Urine, bladder 02/23/2024 9: 56 PM CDT 02/23/2024 10:02 PM CDT Antonia Martínez MD LAB URINE ORDERABLES Final Res ult Performing Organization Address [facility] de Phone Number [facility] Department [place] [address] * Thyroid Function [place] (02/23/2024 9:56 PM CDT) Pathologist [facility] TSH 2.17 0.30 - 4.20 mcIUnit/mL Blood 02/23/2024 9:56 PM CDT 02/23/2024 10:05 PM CDT Antonia Martínez MD LAB BLOOD ORDERABLES Final Res ult Performing Organization Address [facility] Co de Phone Number [facility] [place] [address] * (ABNORMAL) Urinalysis reflex to microscopic and culture Urine, bladder (02/23/2024 9:56 PM CDT) Color, ur Yellow Yellow Clarity, ur Clear Clear [facility] Specific gravity, ur 1.031(H) 1.003 - 1.030 [facility] pH, urine 6.0 [facility] Comment: Interpretive Data ? Urine pH is affected by diet, medications, systemic acid-base disturbances, and renal tubular function. ??pH may affect urinary stone formation. ??For example, urine pH below 6.0 may help reduce the tendency for calcium phosphate stones and pH greater than 6.0 may reduce the tendency for uric acid stone formation. Source: [facility] Current Interpretive Data was last revised on 2017 Protein, ur ql 1+(A) Negative [facility] Glucose, ur ql Negative Negative [facility] Ketones, ur Negative Negative [facility] Bilirubin, ur Negative Negative [facility] Blood, ur Negative Negative [facility] Urobilinogen, ur 2.0(A) <2.0 mg/dL [facility] Nitrite, ur Negative Negative [facility] Leukocyte esterase, ur Negative Negative [facility] UA reflex comment Reflex to microscopic UA will be performed. [facility] Urine, bladder 02/23/2024 9: 56 PM CDT 02/23/2024 10:02 PM CDT Antonia Martínez MD LAB MICROBIOLOGY - GENERAL ORD ERABLES Final Result Performing Organization Address City/[facility]/ZIP Co de Phone Number [facility] Department [place] [address] * POCT lactate (02/23/2024 9:12 PM CDT) Lactate POC i-STAT 1.4 0.7 - 2.2 mmol/L Blood 02/23/2024 9:12 PM CDT 02/23/2024 9:12 PM CDT us Arthur Palacios MD LAB POCT ORDERABLES - DEVICE Final Result [facility] Department [place] [address] * XR Tibia Fibula Right 2 Views (02/23/2024 9:07 PM CDT) Anatomical Region Laterality Modality Lower Extremities, Lower Leg Right Com puted Radiography 02/23/2024 9:18 PM CDT Impressions 02/24/2024 9:17 AM CDT No acute traumatic findings in the imaged pelvis and right lower extremity. Dictated by: Vasquez Weber M.D. The radiology attending physician has personally reviewed this study, and had reviewed and/or edited this written report and agrees with it. Electronically signed by: Ezra Reaves M.D. Narrative 02/24/2024 9:17 AM CDT EXAMINATION: XR FEMUR RIGHT 2 OR MORE [...] fracture. Joint spaces are within normal limits. Procedure Note Ezra Reaves MD PhD - 02/24/2024 EXAMINATION: XR FEMUR RIGHT 2 OR MORE [...] fracture. Joint spaces are within normal limits. IMPRESSION: No acute traumatic findings in the imaged pelvis and right lower extremity. Dictated by: Vasquez Weber M.D. The radiology attending physician has personally reviewed this study, and had reviewed and/or edited this written report and agrees with it. Electronically signed by: Ezra Reaves M.D. Silvia RAMON IMG XR PROCEDURES Antonina l Result * XR Knee Right 1 or 2 Views (02/23/2024 9:07 PM CDT) Anatomical Region Laterality Modality Lower Extremities, Knee Right Computed Radiography 02/23/2024 9:18 PM CDT Impressions 02/24/2024 9:17 AM CDT No acute traumatic findings in the imaged pelvis and right lower extremity. Dictated by: Vasquez Weber M.D. The radiology attending physician has personally reviewed this study, and had reviewed and/or edited this written report and agrees with it. Electronically signed by: Ezra Reaves M.D. Narrative 02/24/2024 9:17 AM CDT EXAMINATION: XR FEMUR RIGHT 2 OR MORE [...] fracture. Joint spaces are within normal limits. Procedure Note Ezra Reaves MD PhD - 02/24/2024 EXAMINATION: XR FEMUR RIGHT 2 OR MORE [...] fracture. Joint spaces are within normal limits. IMPRESSION: No acute traumatic findings in the imaged pelvis and right lower extremity. Dictated by: Vasquez Weber M.D. The radiology attending physician has personally reviewed this study, and had reviewed and/or edited this written report and agrees with it. Electronically signed by: Ezra Reaves M.D. Silvia RAMON IMG XR PROCEDURES Antonina l Result * XR Hip Right 2 or 3 Views W Pelvis (02/23/2024 9:07 PM CDT) Anatomical Region Laterality Modality Lower Extremities, Hip, Pelvis Right C omputed Radiography 02/23/2024 9:18 PM CDT Impressions 02/24/2024 9:17 AM CDT No acute traumatic findings in the imaged pelvis and right lower extremity. Dictated by: Vasquez Weber M.D. The radiology attending physician has personally reviewed this study, and had reviewed and/or edited this written report and agrees with it. Electronically signed by: Ezra Reaves M.D. Narrative 02/24/2024 9:17 AM CDT EXAMINATION: XR FEMUR RIGHT 2 OR MORE [...] fracture. Joint spaces are within normal limits. Procedure Note Ezra Reaves MD PhD - 02/24/2024 EXAMINATION: XR FEMUR RIGHT 2 OR MORE [...] fracture. Joint spaces are within normal limits. IMPRESSION: No acute traumatic findings in the imaged pelvis and right lower extremity. Dictated by: Vasquez Weber M.D. The radiology attending physician has personally reviewed this study, and had reviewed and/or edited this written report and agrees with it. Electronically signed by: Ezra Reaves M.D. Silvia RAMON IMG XR PROCEDURES Antonina l Result * XR Femur Right 2 or More Views (02/23/2024 9:06 PM CDT) Anatomical Region Laterality Modality Lower Extremities, Thigh, Femur Right Computed Radiography 02/23/2024 9:18 PM CDT Impressions 02/24/2024 9:17 AM CDT No acute traumatic findings in the imaged pelvis and right lower extremity. Dictated by: Vasquez Weber M.D. The radiology attending physician has personally reviewed this study, and had reviewed and/or edited this written report and agrees with it. Electronically signed by: Ezra Reaves M.D. Narrative 02/24/2024 9:17 AM CDT EXAMINATION: XR FEMUR RIGHT 2 OR MORE [...] fracture. Joint spaces are within normal limits. Procedure Note Ezra Reaves MD PhD - 02/24/2024 EXAMINATION: XR FEMUR RIGHT 2 OR MORE [...] fracture. Joint spaces are within normal limits. IMPRESSION: No acute traumatic findings in the imaged pelvis and right lower extremity. Dictated by: Isah Gene Weber, M.D. The radiology attending physician has personally reviewed this study, and had reviewed and/or edited this written report and agrees with it. Electronically signed by: Ezra Reaves M.D. Silvia RAMON IMG XR PROCEDURES Antonina l Result * Thromboelastometry Panel - Heparin (02/23/2024 9:02 PM CDT) HEPTEM-CT 189 141 - 215 sec HEPTEM-A5 42 33 - 51 mm [facility] HEPTEM-A10 53 44 - 61 mm [facility] HEPTEM-A20 57 52 - 67 mm [facility] HEPTEM-MCF 57 54 - 69 mm [facility] Blood 02/23/2024 9:02 PM CDT 02/23/2024 9:36 PM CDT Silvia RAMON LAB BLOOD ORDERABLES E dited Result - Final Performing Organization Address [facility] de Phone Number [facility] Department [place] [address] * (ABNORMAL) Thromboelastometry Panel - Intrinsic (02/23/2024 9:02 PM CDT) INTEM-CT 188 139 - 205 sec INTEM-A5 43 36 - 54 mm [facility] INTEM-A10 52 46 - 63 mm [facility] INTEM-A20 56 53 - 68 mm [facility] INTEM-MCF 56 55 - 70 mm [facility] INTEM-LI60 93 93 - 100 % [facility] INTEM-ML 9(H) 0 - 7 % [facility] Blood 02/23/2024 9:02 PM CDT 02/23/2024 9:36 PM CDT Silvia RAMON LAB BLOOD ORDERABLES E dited Result - Final [facility] Department [place] [address] * (ABNORMAL) Thromboelastometry Panel - Extrinsic (02/23/2024 9:02 PM CDT) Pathologist [facility] EXTEM-CT 68 51 - 73 sec EXTEM-A5 48 33 - 52 mm [facility] EXTEM-A10 57 45 - 62 mm [facility] EXTEM-A20 62 54 - 69 mm [facility] EXTEM-MCF 62 57 - 72 mm [facility] EXTEM-LI60 91(L) 94 - 100 % [facility] EXTEM-ML 11(H) 0 - 6 % [facility] Blood 02/23/2024 9:02 PM CDT 02/23/2024 9:36 PM CDT us Silvia RAMON LAB BLOOD ORDERABLES E dited Result - Final Performing Organization Address City/[facility]/ZIP Co de Phone Number [facility] Department [place] [place] [address] * Thromboelastometry Panel - Fibrinogen (02/23/2024 9:02 PM CDT) [facility] FIBTEM-A5 12 5 - 16 mm FIBTEM-A10 13 6 - 17 mm [facility] FIBTEM-A20 15 6 - 18 mm [facility] FIBTEM-MCF 15 9 - 19 mm [facility] Blood 02/23/2024 9:02 PM CDT 02/23/2024 9:36 PM CDT us Silvia RAMON LAB BLOOD ORDERABLES E dited Result - Final [facility] [place] [address] * eGFR (02/23/2024 9:02 PM CDT) eGFR 87 >=60 mL/min/1. 73 m2 Comment: Interpretive Data [...] interpretive data was last reviewed 2021. Blood 02/23/2024 9:02 PM CDT 02/23/2024 9:27 PM CDT us Silvia RAMON LAB BLOOD ORDERABLES F inal Result [facility] Department of Laboratories [place], [place] [id number] * Differential, auto (02/23/2024 9:02 PM CDT) Neutrophil abs 6.0 1.5 - 6.5 K/cumm Imm gran abs 0.0 0.0 - 0.1 K/cumm [facility] Lymphocyte abs 2.0 0.8 - 3.3 K/cumm [facility] Monocyte abs 0.5 0.2 - 0.8 K/cumm [facility] Eosinophil abs 0.0 0.0 - 0.5 K/cumm [facility] Basophil abs 0.0 0.0 - 0.1 K/cumm [facility] Neutrophil pct 70.0 % [facility] Comment: Interpretive Data Percent cell count reference ranges are not reported, since discordance with absolute values may lead to misinterpretation of CBC data. Current Interpretive Data was last revised on 2017. Imm gran pct 0.2 % [facility] Comment: Interpretive Data Percent cell count reference ranges are not reported, since discordance with absolute values may lead to misinterpretation of CBC data. Current Interpretive Data was last revised on 2017. Lymphocyte pct 23.5 % [facility] Comment: Interpretive Data Percent cell count reference ranges are not reported, since discordance with absolute values may lead to misinterpretation of CBC data. Current Interpretive Data was last revised on 2017. Monocyte pct 5.7 % [facility] Comment: Interpretive Data Percent cell count reference ranges are not reported, since discordance with absolute values may lead to misinterpretation of CBC data. Current Interpretive Data was last revised on 2017. Eosinophil pct 0.2 % [facility] Comment: Interpretive Data Percent cell count reference ranges are not reported, since discordance with absolute values may lead to misinterpretation of CBC data. Current Interpretive Data was last revised on 2017. Basophil pct 0.4 % [facility] Comment: Interpretive Data Percent cell count reference ranges are not reported, since discordance with absolute values may lead to misinterpretation of CBC data. Current Interpretive Data was last revised on 2017. Blood 02/23/2024 9:02 PM CDT 02/23/2024 9:27 PM CDT us Silvia RAMON LAB BLOOD ORDERABLES F inal Result [facility] [place] [address] * Basic metabolic panel (02/23/2024 9:02 PM CDT) Sodium 142 135 - 145 mmol/L Potassium, pl 4.2 3.3 - 4.9 mmol/L [facility] Chloride 104 97 - 110 mmol/L [facility] CO2 26 22 - 32 mmol/L [facility] Anion gap 12 2 - 15 mmol/L [facility] BUN 15 6 - 25 mg/dL [facility] Creatinine 1.16 0.80 - 1.30 mg/dL [facility] Glucose 86 70 - 199 mg/dL [facility] Comment: Interpretive Data Fasting glucose >/= [...] 2022. Calcium 9.4 8.5 - 10.3 mg/dL [facility] Blood 02/23/2024 9:02 PM CDT 02/23/2024 9:27 PM CDT Arthur Palacios MD LAB BLOOD ORDERABLES F inal Result [facility] Department [place] [address] * Drugs of Abuse Screen, Urine with Reflex Confirmation (02/23/2024 9:02 PM CDT) Pathologist [facility] Amphetamine, ur Not Detected CutOff 500ng/mL Comment: Interpretive Data - Amphetamines: ??Samples containing greater than 500 ng/mL d-methamphetamine ??or other cross-reacting amphetamine compounds are reported as positive. ??Amphetamine immunoassays are subject to significant false positive rates due to cross-reactivity of non-amphetamine drugs. Confirmatory testing required for definitive results. Current Interpretive Data was last reviewed 2023. Barbiturates, ur Not Detected CutOff 200ng/mL [facility] Comment: Interpretive Data - Barbiturates: ??Samples containing greater than 200 ng/mL secobarbital or other cross-reacting barbiturate compounds are reported as positive. ??False positive and false negative results are possible. Confirmatory testing required for definitive results. Current Interpretive Data was last reviewed 2023. Benzodiazepines, ur Not Detected CutOff 100ng/mL [facility] Comment: Interpretive Data - Benzodiazepines: ??Samples containing greater than 100 ng/mL nordiazepam or other cross-reacting compounds are reported as positive. False positive and false negative results are possible. Confirmatory testing required for definitive results. Current Interpretive Data was last reviewed 2023. Cannabinoids, ur Not Detected CutOff 50 ng/mL [facility] Comment: Interpretive Data - Cannabinoids: ??Samples containing greater than 50 ng/mL delta-9 THC -COOH or other cross-reacting compounds are reported as positive. ??False positive and false negative results are possible. ??Confirmatory testing required for definitive results. Current Interpretive Data was last reviewed 2023. Cocaine, ur Not Detected CutOff 150ng/mL [facility] Comment: Interpretive Data - Cocaine: ??Samples containing greater than 150 ng/mL benzoylecgonine or other cross-reacting compounds are reported as positive. False positive and false negative results are possible. Confirmatory testing required for definitive results. Current Interpretive Data was last reviewed 2023. Fentanyl, Ur Not Detected CutOff 5 ng/mL [facility] Comment: Interpretive Data - Fentanyl: ?? Samples containing greater than 5 ng/mL norfentanyl, fentanyl, or other cross-reacting fentanyl compounds are reported as positive. False positive and false negative results are possible. Confirmatory testing required for definitive results. Current Interpretive Data was last reviewed 2023. Methadone, ur Not Detected CutOff 300ng/mL [facility] Comment: Interpretive Data - Methadone: ??Samples containing greater than 300 ng/mL d,l-methadone or other cross-reacting compounds are reported as positive. ??False positive and false negative results are possible. Confirmatory testing required for definitive results. Current Interpretive Data was last reviewed 2023. Opiates, ur Not Detected CutOff 300ng/mL [facility] Comment: Interpretive Data - Opiates: ??Samples containing greater than 300 ng/mL morphine or other cross-reacting compounds are reported as positive. ??False positive and false negative results are possible. Confirmatory testing required for definitive results. Current Interpretive Data was last reviewed 2023. Oxycodone, ur Not Detected CutOff 100ng/mL [facility] Comment: Interpretive Data - Oxycodone: ??Samples containing greater than 100 ng/mL oxycodone or other cross-reacting compounds are reported as ??positive. ??False positive and false negative results are possible. Confirmatory testing required for definitive results. Current Interpretive Data was last reviewed 2023. Phencyclidine, ur Not Detected CutOff 25 ng/mL [facility] Comment: Interpretive Data - Phencyclidine: ??Samples containing greater than 25 ng/mL phencyclidine or other cross-reacting compounds are reported as positive. ??False positive and false negative results are possible. Confirmatory testing required for definitive results. Current Interpretive Data was last reviewed 2023. Urine Creatinine 271 mg/dL [facility] Comment: Interpretive Data Urine Creatinine: < 10 mg/dL is extremely dilute = or > 10 but < 20 mg/dL is dilute = or > 20 mg/dL is normal Current Interpretive Data was last revised on 2017. Urine 02/23/2024 9:02 PM CDT 02/23/2024 9:23 PM CDT Narrative [facility] - 02/23/2024 9:55 PM CDT Drug of Abuse screening is performed by immunoassay for medical purposes only. ??This is not to be used for Pain Management purposes. ??If Detected, confirmation testing will be performed for Amphetamines, Cocaine, Fentanyl, Methadone, Opiates, Oxycodone or Phencyclidine. Arthur Palacios MD LAB URINE ORDERABLES F inal Result [facility] Department [place] [address] * Ethanol (02/23/2024 9:02 PM CDT) [facility] Ethanol <10 <=10 mg/dL Comment: Interpretive Data Legal limit of intoxication > or = 80 mg/dL Levels > or = 400 mg/dL are potentially TOXIC. Current interpretive data was last revised on 2018. Blood 02/23/2024 9:02 PM CDT 02/23/2024 9:27 PM CDT Arthur Palacios MD LAB BLOOD ORDERABLES F inal Result Performing Organization Address [facility] de Phone Number [facility] Department [place] [address] * (ABNORMAL) CBC with auto differential (02/23/2024 9:02 PM CDT) [facility] WBC 8.6 3.8 - 9.9 K/cumm Hgb 14.0 13.0 - 17.5 g/dL [facility] Hct 43.7 38.9 - 50.3 % [facility] Plt 307 150 - 400 K/cumm [facility] MPV 9.7 9.1 - 12.3 fL [facility] RBC 5.36 4.30 - 5.80 M/cumm [facility] MCV 81.5 81.3 - 96.4 fL [facility] MCH 26.1(L) 27.1 - 33.3 pg [facility] MCHC 32.0(L) 32.3 - 35.7 g/dL [facility] RDW CV 15.2(H) 11.1 - 14.9 % [facility] RDW SD 44.6 35.7 - 48.1 fL [facility] NRBC abs 0.00 0.00 - 0.01 K/cumm [facility] Blood (Blood, Venous) 02/23/2024 9:02 PM CDT 02/23/2024 9:27 PM CDT Arthur Palacios MD LAB BLOOD ORDERABLES F inal Result Performing Organization Address [facility]/ZIP Co de Phone Number [facility] [place] [address] * (ABNORMAL) Blood gas, venous (02/23/2024 9:02 PM CDT) pH, Venous 7.30(L) 7.32 - 7.43 PCO2, Venous 52(H) 40 - 50 mmHg [facility] PO2, Venous 98 mmHg [facility] Comment: Interpretive Data No Reference Range Established Current Interpretive Data was last revised on 2017. HCO3 Venous, Calculated 27 20 - 30 mmol/L [facility] BE, venous -2 mmol/L [facility] Comment: Interpretive Data No Reference Range Established Current Interpretive Data was last revised on 2017. Blood 02/23/2024 9:02 PM CDT 02/23/2024 9:15 PM CDT Arthur Palacios MD LAB BLOOD ORDERABLES F inal Result Performing Organization Address [facility] de Phone Number [facility] [place] [address] * Type and screen (02/23/2024 9:02 PM CDT) Pathologist [facility], indirect Negative ABO Rh A Positive [facility] Blood 02/23/2024 9:02 PM CDT 02/23/2024 9:19 PM CDT Narrative [facility] - 02/23/2024 10:00 PM CDT Has the patient had Daratumumab or Isatuximab in the past 6 months?->Unknown Arthur Palacios MD LAB BLOOD BANK TEST OR DERABLES Final Result Performing Organization Address [facility] Co de Phone Number [facility] [place] [address] documented in this encounter Visit Diagnoses Diagnosis Borderline personality disorder, rule out other organic causes of unusual pEX/MSE- Primary Borderline personality disorder Suicide attempt (HCC) Suicide and self-inflicted injury by unspecified means Stimulant use disorder [F15.90] Unspecified mood disorder (HCC) [F39] HIV disease (CMS/HCC) (HCC) Human immunodeficiency virus [HIV] disease 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 HIV disease (CMS/HCC) (HCC) Human immunodeficiency virus [HIV] disease Lower extremity pain, right Stimulant use disorder Syphilis Unspecified syphilis documented in this encounter Administered Medications Inactive Administered Medications - up to 3 most recent administrations Medication Order MAR Action Action Date Dose Rate Site ARIPiprazole (ABILIFY) tablet 5 mg 5 mg, oral, Daily, First dose on 02/24/24 at 0900, Indications: Depression Treatment AdjunctIndications:Depression Treatment Adjunct Given 02/27/2024 8:30 AM CDT 5 mg Given 02/26/2024 8:11 AM CDT 5 mg Given 02/25/2024 8:53 AM CDT 5 mg mkfpfkkoyvq-yykicpjternhz-grouutuyl (BIKTARVY) 50-200-25 mg per tablet 1 tablet 1 tablet, oral, Daily, First dose on 02/24/24 at 0900, May be dissolved in 240 mL of water. Give 2 hrs before or 6 hrs after MVI, antacids, or other products containing sucralfate, magnesium, aluminum, iron, or zinc., Indications: HIV infectionIndications:HIV infection Given 02/27/2024 8:30 AM CDT 1 tablet Given 02/26/2024 8:11 AM CDT 1 tablet Given 02/25/2024 8:53 AM CDT 1 tablet doxepin (SINEquan) capsule 25 mg 25 mg, oral, Nightly, First dose on 02/24/24 at 2100, Indications: depressionIndications:depression Given 02/26/2024 8:19 PM CDT 25 mg Given 02/25/2024 8:42 PM CDT 25 mg Given 02/24/2024 8:07 PM CDT [address] (CYMBALTA) extended release capsule 60 mg 60 mg, oral, Daily, First dose on 02/24/24 at 0900, Capsule may be opened and contents mixed with applesauce or apple juice ONLY. Do not crush or chew capsule, Indications: unsepcified depressionIndications:unsepcified depression Given 02/27/2024 8:30 AM CDT 60 mg Given 02/26/2024 8:11 AM CDT 60 mg Given 02/25/2024 8:53 AM CDT 60 mg hydrOXYzine (ATARAX) tablet 25 mg 25 mg, oral, Once as needed, anxiety, Starting on Sun02/24/24 at 1947, For 1 dose Given 02/24/2024 8:06 PM CDT 2 5 mg hydrOXYzine (ATARAX) tablet 25 mg 25 mg, oral, 3 times daily PRN, anxiety, Starting on Sun02/26/24 at 0731 nicotine polacrilex (NICORETTE) gum 2 mg 2 mg, mouth/throat, Every 2 hours PRN, nicotine withdrawal symptoms, Starting on Sun02/26/24 at 1141, To avoid hiccups, GI upset, and diarrhea, please instruct patient on correct use (slowly chewing until the gum tastes peppery and tingles, then parking it between the cheek and gum and repeating this process after the tingle is gone). Advise the patient to not eat or drink 15 minutes before using or while the gum is in mouth. Instruct patients to chew into gum and then place between the cheek and gum to enhance absorption. Given 02/27/2024 10:17 AM CDT 2 mg Given 02/26/2024 8:19 PM CDT 2 mg Given 02/26/2024 2:55 PM CDT 2 mg OLANZapine (ZyPREXA ZYDIS) disintegrating tablet 10 mg 10 mg, oral, Every 6 hours PRN, agitation, Starting on Sun02/24/24 at 0349, Max dose 40 mg/24 hrs. OLANZapine (ZyPREXA) 10 mg in sterile water 2 mL (5 mg/mL) syringe 10 mg, intramuscular, Every 6 hours PRN, other, severe agitation clinically emergent, Starting on Sun02/24/24 at 0349, Max 30 mg/24 hours. Do not administer with IV or IM benzodiazepines. Reconstitute 10 mg vial with 2.1 mL SWFI. Resulting solution is ~5 mg/mL. Use immediately (within 1 hour) following reconstitution. documented in this encounter Active and Recently Administered Medications Times are shown in CDT. Scheduled Medication Order 02/25/2024 02/26/2024 02/27/2024 ARIPiprazole (ABILIFY) tablet 5 mg 5 mg, oral, Daily, First dose on 02/24/24 at 0900, Indications: Depression Treatment Adjunct 0853 (Given - Provider: Mark Pickard RN) 0811 (Given - Provider: Ezra Hidalgo RN) 0830 (Given - Provider: Kishore Mann, VICTOR MANUEL) bictegravir-emtricitab ine-tenofovir (BIKTARVY) 50-200-25 mg per tablet 1 tablet 1 tablet, oral, Daily, First dose on 02/24/24 at 0900, May be dissolved in 240 mL of water. Give 2 hrs before or 6 hrs after MVI, antacids, or other products containing sucralfate, magnesium, aluminum, iron, or zinc., Indications: HIV infection 0853 (Given - Provider: Mark Pickard RN) 0811 (Given - Provider: Ezra Hidalgo RN) 0830 (Given - Provider: Kishore Mann RN) doxepin (SINEquan) capsule 25 mg 25 mg, oral, Nightly, First dose on 02/24/24 at 2100, Indications: depression 2041 (Given - Provider: Silvio Pitts, VICTOR MANUEL) 2019 (Given - Provider: Hardy Cortes RN) DULoxetine DR (CYMBALTA) extended release capsule 60 mg 60 mg, oral, Daily, First dose on 02/24/24 at 0900, Capsule may be opened and contents mixed with applesauce or apple juice ONLY. Do not crush or chew capsule, Indications: unsepcified depression 0853 (Given - Provider: Mark Pickard RN) 0811 (Given - Provider: Ezra Hidalgo, VICTOR MANUEL) 0830 (Given - Provider: Kishore Mann, VICTOR MANUEL) PRN Medication Order 02/25/2024 02/26/2024 02/27/2024 acetaminophen (TYLENOL) tablet 650 mg 650 mg, oral, Every 4 hours PRN, 1st line for pain, Starting on 02/24/24 at 0349, Indications: Pain hydrOXYzine (ATARAX) tablet 25 mg 25 mg, oral, 3 times daily PRN, anxiety, Starting on Sun02/26/24 at 0731 nicotine polacrilex (NICORETTE) gum 2 mg 2 mg, mouth/throat, Every 2 hours PRN, nicotine withdrawal symptoms, Starting on Sun02/26/24 at 1141, To avoid hiccups, GI upset, and diarrhea, please instruct patient on correct use (slowly chewing until the gum tastes peppery and tingles, then parking it between the cheek and gum and repeating this process after the tingle is gone). Advise the patient to not eat or drink 15 minutes before using or while the gum is in mouth. Instruct patients to chew into gum and then place between the cheek and gum to enhance absorption. 1147 (Given - Provider: Ezra Hidalgo RN)1455 (Given - Provider: Ezra Hidalgo RN)2019 (Given - Provider: Hardy Cortes RN) 1017 (Given - Provider: Ezra Hidalgo RN) OLANZapine (ZyPREXA ZYDIS) disintegrating tablet 10 mg(Linked Group 1) 10 mg, oral, Every 6 hours PRN, agitation, Starting on 02/24/24 at 0349, Max dose 40 mg/24 hrs. OLANZapine (ZyPREXA) 10 mg in sterile water 2 mL (5 mg/mL) syringe(Linked Group 1) 10 mg, intramuscular, Every 6 hours PRN, other, severe agitation clinically emergent, Starting on 02/24/24 at 0349, Max 30 mg/24 hours. Do not administer with IV or IM benzodiazepines. Reconstitute 10 mg vial with 2.1 mL SWFI. Resulting solution is ~5 mg/mL. Use immediately (within 1 hour) following reconstitution. Linked Groups Order Group 1: OLANZapine (ZyPREXA ZYDIS) disintegrating tablet 10 mgJump to med 10 mg, oral, Every 6 hours PRN, agitation, Starting on 02/24/24 at 0349, Max dose 40 mg/24 hrs. Or OLANZapine (ZyPREXA) 10 mg in sterile water 2 mL (5 mg/mL) syringeJump to med 10 mg, intramuscular, Every 6 hours PRN, other, severe agitation clinically emergent, Starting on 02/24/24 at 0349, Max 30 mg/24 hours. Do not administer with IV or IM benzodiazepines. Reconstitute 10 mg vial with 2.1 mL SWFI. Resulting solution is ~5 mg/mL. Use immediately (within 1 hour) following reconstitution. documented in this encounter Orders Medications Ordered That Prasad ht Not Have Been Administered Count Last Ordered Date First Ordered Date hydrOXYzine (ATARAX) tablet 25 mg 1 024 acetaminophen (TYLENOL) tablet 650 mg 1 10/2023 OLANZapine (ZyPREXA ZYDIS) d isintegrating tablet 10 mg 1 02/24/2024 OLANZapine (ZyPREXA) 10 mg i n sterile water 2 mL (5 mg/mL) syringe 1 02/24/2024 Lab Orders Without Results Count Last Ordered D ate First Ordered Date POCT LACTATE - DEVICE 1 02/23/2024 POCT [id number]-[id number]-HCT,WB - ISTAT 1 02/23/20 Nursing Count Last Ordered Date First Orde red Date DISCHARGE INSTRUCTIONS 2 02/27/2024 MEASURE HEIGHT AND LENGTH 1 02/24/2024 TOBACCO CESSATION EDUCATION 1 02/24/2024 WEIGH PATIENT 1 02/24/2024 Consult Count Last Ordered Date First Orde red Date CONSULT TO GENERAL INFECTIOUS DISEASE 1 12/2023 IP CONSULT TO NEUROLOGY 1 02/26/2024 IP CONSULT TO PSYCHIATRY 1 02/23/2024 Admission Count Last Ordered Date First Orde red Date ADMIT TO INPATIENT 1 02/24/2024 Discharge Count Last Ordered Date First Orde red Date DISCHARGE PATIENT 1 02/27/2024 CORE MEASURES Count Last Ordered Date First Ord ered Date REASON FOR NO VTE PROPHYLAXIS AT ADMISSION 1 02/24/2024 documented in this encounter Care Teams Helmet Binder Relationship Specialty Start Date End Date Mady Sullivan MD [address] [address] PCP - General Infectious Diseases 10/12/23 No, Physician 10/12/23 documented as of this encounter
--- OUTSIDE RECORDS SUMMARY | 2024-08-10 03:35 | XMS_ITS | Encounter Summary ---
Author Organization [facility] Address [address] [place] [address] Care Team Providers Care Telehealth Nurse Name Role Phone Henrique Hardin MD Primary Care Provider [phone] Encounter Details Date Type Department Care Team (Late st Contact Info) Description 10/29/2020 Orders Only [facility] Testing Site - [facility]. [place] [id number] [facility] [address] [place] [address] Katlyn Wolff MD [address] [facility] [id number] [place] [address] Pre-procedure lab exam (Primary Dx) Social History Tobacco Use Types Packs/Day Years Used Date Smoking Tobacco: Never Smokeless Tobacco: Never AUDIT-C Answer Date Recorded Q1: How often do you have a drink containing alc ohol? Monthly or less 11/04/2020 Q2: How many drinks containi ng alcohol do you have on a typical day when you are drinking? 1 or 2 11/04/2020 Q3: How often do you have si x or more drinks on one occasion? 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 Class: Internal Referral Ordering User: Agatha Paulino RMA Auth Provider: KATLYN WOLFF Enc Provider: Katlyn Wolff MD Diagnosis: ?? Department: [facility] 108 Sched Instruct: ?? Comment: ?? Order Specific Questions Question Answer Comment Testing types: Pre-procedure ?? Date of Px/chemo/treatment/placement/transfer 11/04/2020 ?? Testing site patient will be sent to: [facility] ?? Date testing requested: 10/31/2020 ?? (Optional) Patient requires saliva test due to: ? Testing: COVID-RNA ?? Is this the first COVID-19 test for this patient? No ?? Does the patient currently work in a healthcare facility with direct patient contact? No ?? Is the patient a resident of a congregate care or living setting? No ?? Is the patient ? No ?? Please select the performing region: [facility] documented in this encounter Plan of Treatment Not on file documented as of this encounter Results * COVID-19 Coronavirus RNA Nasopharyngeal (11/03/2020 8:25 AM CDT) COVID-19 RNA Not Detected [facility] Comment: Testing performed as a component of ??a specimen pool. ??Negative results should be treated as presumptive and, if inconsistent with clinical signs and symptoms or necessary for patient management, pooled samples should be tested individually. Negative results do not preclude SARS-CoV-2 infection and must not be used as the sole basis for patient management decisions. Negative results must be considered in the context of a patient? s recent exposures, history, presence of clinical signs and symptoms consistent with COVID-19. Interpretive Data Synonyms for this test include: PCR and NAAT . ??Testing performed by the [facility] Molecular Infectious Disease Laboratory. The 2019Novel Coronavirus Assay (COVID-19)Real Time RT-PCR assay is for in vitro diagnostic use under FDA emergency use authorization only. A negative RT-PCR result does not preclude infection with COVID-19 and should not be used as the sole basis for treatment or other patient management decisions. ??Additional sample types have been validated according to CLIA regulations. ?? Current Interpretive Data was last revised on August 26, 2020. First COVID-19 test? No [facility] Comment:Testing performed by : [facility], [address] [place]., [address] Employeed in healthcare? No [facility] Comment:Testing performed by : [facility], [address] [facility], [address] status? No [facility] Comment:Testing performed by : [facility], [address] [facility], [address] Group care resident? No [facility] Comment:Testing performed by : [facility], [address] [facility], [address] Hospitalized? Unknown [facility] Comment:Testing performed by : [facility], [address] [place] [address], [address] Is patient in ICU? Unknown [facility] Comment:Testing performed by : [facility], [address] [facility], [address] Symptomatic as defined by CDC? No [facility] Comment:Testing performed by : [facility], [address] [place] [address]., [id number] Nasopharyngeal 11/03/2020 8: 25 AM CDT 11/03/2020 3:24 PM CDT Narrative [facility] - 11/04/2020 12:07 AM CDT What is the reason for testing?->Screening prior to scheduled procedure or surgery us Katlyn Wolff MD LAB MICROBIOLOGY - GENERAL O RDERABLES Final Result [facility] [address] [place] [address] documented in this encounter Visit Diagnoses Diagnosis Pre-procedure lab exam- Primary Pre-procedural laboratory examination Pre-procedure lab exam Pre-procedural laboratory examination documented in this encounter Care Teams Telehealth Nurse Relationship Specialty Start Date End Date Henrique Hardin MD PCP - General Internal Medicine 10/14/20 10/26/22 documented as of this encounter
--- OUTSIDE RECORDS SUMMARY | 2024-08-10 03:35 | XMS_ITS | Encounter Summary ---
Author Organization [facility] Healthcare Address [address] [place] [address] Care Team Providers Care Awning Maker Name Role Phone Mady Sullivan MD Primary Care Provider No, Physician Unavailable Encounter Details Date Type Department Care Team (Late st Contact Info) Description 10/12/2023 Orders Only [facility] Neuro Interventional Radiology [address] [place] [address] Marina Weiss RN Social History Tobacco Use Types Packs/Day Years Used Date Smoking Tobacco: Never Smokeless Tobacco: Never [facility] Utilities Answer Date Recorded In the past 12 months has [facility] electric, gas, oil, or water [facility] threatened to shut off services in your [...] often do you attend chur ch or islam services? Never 10/15/2023 Do you belong to [...] Date Recorded PHQ-2 Total Score 4 10/15/2023 [facility] - Occupational [...] a nursing home (including now)? No 10/15/2023 Personal Safety Answer Date Recorded Have you ever been in or are you currently in a harmful physical or emotional relationship or is someone making you feel afraid or unsafe? 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 Answer Date of Assessment Author No 10/03/2023 12:08 PM CDDragan Mcintosh LCSW * Are you blind or do [...] No 10/03/2023 12:08 PM CDDragan Mcintosh LCSW documented as of this encounter Mental Status * Because of a physical, mental, or emotional condition, do you have serious difficulty concentrating, remembering, or making decisions? (5 years old or older) Answer Entry Date Author No 10/03/2023 12:08 PM CDT Dragan Montano, BEHAVIORAL INSTRUCTOR documented in this encounter Plan of Treatment Not on file documented as of this encounter Visit Diagnoses Not on filedocumented in this encounter Care Teams Awning Maker Relationship Specialty Start Date End Date Mady Sullivan MD [address] [facility] [address] [place] [address] PCP - General Infectious Diseases 10/12/23 No, Physician 10/12/23 documented as of this encounter
--- OUTSIDE RECORDS SUMMARY | 2024-08-10 03:35 | XMS_ITS | Encounter Summary ---
Author Organization [facility] Address [address] [place] [address] Phone Care Team Providers Care Automotive Parts Counterperson Name Role Phone Henrique Hardin MD Primary Care Provider [phone]- [phone] Encounter Details Date Type Department Care Team (Late st Contact Info) Description 10/14/2020 Orders Only [facility] Scanning, Provider Social History Tobacco Use Types Packs/Day Years Used Date Smoking Tobacco: Never Assessed Sex and Gender Information Value Date Recorded Sex Assigned at Not on file 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 Gender Identity Not on file Sexual Orientation Not on file documented as of this encounter Plan of Treatment Not on file documented as of this encounter Procedures Procedure Name Priority Date/Time Associated Diagnosis Comments SCAN - LABS 10/14/2020 12:32 PM CDT documented in this encounter Results * SCAN - LABS (10/14/2020 12:32 PM CDT) us Provider Scanning Final Result documented in this encounter Visit Diagnoses Not on filedocumented in this encounter Care Teams Automotive Parts Counterperson Relationship Specialty Start Date End Date Henrique Hardin MD PCP - General Internal Medicine 10/14/20 10/26/22 documented as of this encounter
--- OUTSIDE RECORDS SUMMARY | 2024-08-10 03:35 | XMS_ITS | Encounter Summary ---
Author Organization [facility] Healthcare Address [address] [place] [id number] Care Team Providers Care Surgical Scrub Technician Name Role Phone Henrique Hardin MD Primary Care Provider [phone] Reason for Visit * Reason Onset Date Comments Cancel 10/28/2020 Encounter Details Date Type Department Care Team (Late st Contact Info) Description 10/28/2020 Telephone [facility] at [address] [place] [address] Nate Thomas, PT Cancel Social History Tobacco Use Types Packs/Day Years Used Date Smoking Tobacco: Never Assessed AUDIT-C Answer Date Recorded Q1: How often do you have a drink containing alc ohol? Monthly or less 10/29/2020 Q2: How many drinks containi ng alcohol do you have on a typical day when you are drinking? 1 or 2 10/29/2020 Q3: How often do you have si x or more drinks on one occasion? Less than monthly 10/29/2020 Sex and Gender Information Value Date Recorded Sex Assigned at Not on file Legal Sex Male 11:02 PM [employer] Gender Identity Not on file Sexual Orientation Not on file documented as of this encounter Miscellaneous Notes * Telephone Encounter - Viola Kc - 10/28/2020 8:47 AM CDT Sister involved in car accident, will resume next week. Cosigned by Nate Thomas, PT at 10/28/2020 10:09 AM CDT documented in this encounter Plan of Treatment Not on file documented as of this encounter Visit Diagnoses Not on filedocumented in this encounter Care Teams Surgical Scrub Technician Relationship Specialty Start Date End Date Henrique Hardin MD PCP - General Internal Medicine 10/14/20 10/26/22 documented as of this encounter
--- OUTSIDE RECORDS SUMMARY | 2024-08-10 03:35 | XMS_ITS | Encounter Summary ---
Author Organization [facility] Healthcare Address [address] [place] [address] Care Team Providers Care Clinical Partner Name Role Phone Henrique Hardin MD Primary Care Provider [phone]- [phone] Encounter Details Date Type Department Care Team (Latest Contact Info) Description 11/04/2020 7:08 AM CDT - 11/04/2020 1:12 PM CDT Hospital Encounter [facility] Operating Room [address] [place] [address] Katlyn Wolff MD [address] 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 Gender Identity Not on file Sexual Orientation Not on file documented as of this encounter Last Filed Vital Signs Vital Sign Reading Time Taken Comments Blood Pressure 128/71 11/04/2020 10:25 AM CDT Pulse 50 11/04/2020 10:25 AM CDT Temperature 36.7 ??C (98.1 ??F) 11/04/2020 9:39 AM CD T Respiratory Rate 14 11/04/2020 10:25 AM CDT Oxygen Saturation 100% 11/04/2020 10:25 AM CDT Inhaled Oxygen Concentration - - Weight 79.6 kg (175 lb 8 oz) 11/04/2020 8:20 AM CDT Height 182.9 cm (6') 11/04/2020 8:20 AM CDT Body Mass Index 23.8 11/04/2020 8:20 AM CDT documented in this encounter Discharge Diagnoses Diagnosis Anogenital (venereal) warts - ANOGENITAL (VENEREAL) WARTS Anal fistula - ANAL FISTULA Epidermal thickening, unspecified - EPIDERMAL THICKENING, UNSPECIFIED Asymptomatic human immunodeficiency virus (hiv) infection status (HCC) - ASYMPTOMATIC HUMAN IMMUNODEFICIENCY VIRUS [HIV] INFECTION STATUS Other continuous churn buttermaker (current) drug therapy - OTHER DETENTION (CURRENT) DRUG THERAPY documented in this encounter Discharge Instructions * Discharge Instructions* Katlyn Wolff MD - 11/04/2020 8:24 AM CDT Pain Some pain is to be expected after a procedure. We recommend alternating between Tylenol 1000mg OR Ibuprofen 600mg every 3 hours and using the prescribed narcotics for any breakthrough pain. No driving while taking narcotic pain medication. Heat or ice may also be used to provide relief, but be careful not to burn yourself as this area is numb. Make sure to take pain medication with food. Sitz baths/warm tub soaks can be used 3 times daily or as needed. If prescribed Percocet, [place], Tylenol #3, or any agent containing acetaminophen (Tylenol), do not use additional Tylenol. If using another NSAID, do not use additional Ibuprofen. If previously instructed by another physician not to use Tylenol or Ibuprofen, please refrain from using this medication. Bowel Function It is important to keep your bowel movements soft and easy to pass. Eat a high fiber diet and take 1 tablespoon of Metamucil daily to help with this. You may also use stool softeners as needed. Drinkat least 64 oz of non-caffeinated fluids daily. Narcotics cause constipation quickly, which can lead to increased pain and healing time, take Miralax as needed if you have not had a bowel movement in48 hours. Bleeding Some bleeding is common after a procedure. Please call our office if you notice any blood loss greater than ?? cup of blood, blood clots larger than a quarter or if blood is dripping out and not stopping. If you feel faint, lightheaded, and dizzy or like you will pass out, call 9-1-1 immediately. Nausea/ Vomiting It is not uncommon to have nausea or vomiting after anesthesia. Taking pain medication on an empty stomach can cause nausea or vomiting. If you develop nausea or vomiting 24 hours after your procedure or cannot keep uids down, call our office or go to your local Emergency Room. Fever/ Chills If you develop any fever over 101.5F or chills, please call our office. It is common to have a low grade fever after a procedure (under 101.5F), use of the OTC medications can help with this. Activity No driving while taking any narcotics. No lifting anything over 10 lbs or straining for 2 weeks following a removal of a hemorrhoid. Walk as much as possible to help prevent constipation. Wound Care Keep the incision clean and dry. Please shower daily, letting soap and water run over the incision and pat dry. Do not scrub. If there is any drainage, you can cover the area with gauze to absorb this. Change this gauze daily, or as needed if it becomes saturated throughout the day. Do not apply any antibiotic ointments to this area. If your doctor left in packing, remove this 24 hours after your procedure. Other If unable to urinate for 8 hours, call our office or go to the ER. If having skin breakdown or irritation, using a skin barrier (Calmoseptine) can provide relief and healing. Sutures may be visible or felt, these will dissolve over time. Call [phone] to schedule or confirm a postoperative appointment at 4 weeks following surgery at [facility]. * Attachments The following attachments cannot be sent through Care Everywhere. * Rectal Fistulotomy (Discharge Care) (Jordanian) * General Anesthesia (Discharge Care) (Jordanian) documented in this encounter Medications at Time of Discharge docusate sodium (COLACE) 100 mg capsuleIndicatio ns:constipation Take 1 capsule (100 mg total) by mouth 2 (two) times a day 30 capsule 11/04/2020 4 dolutegravir-cameron ivudine (Dovato) 50-300 mg TAKE ONE TABLET BY MOUTH ONCE EVERY DAY 07/02/2020 4 gabapentin (NEURONTIN) 300 mg capsule TAKE ONE CAPSULE BY MOUTH THREE TIMES DAILY 07/02/2020 4 nystatin 100,000 unit/mL suspension Take 500,000 Units by mouth 4 (four) times a day 10/06/2019 4 oxyCODONE (ROXICODONE) 5 mg immediate release tabletIndication s:Pain Take 1 tablet (5 mg total) by mouth every 4 (four) hours as needed for pain 30 tablet 11/04/2020 4 sulfamethoxazole -trimethoprim (BACTRIM DS) 800-160 mg per tablet Take 1 tablet by mouth 2 (two) times a day 4 triamcinolone (KENALOG) 0.1 % ointment Apply topically 2 (two) times a day 09/16/2019 4 documented as of this encounter Ordered Prescriptions Prescription Sig Dispense Quantity Refills Last Filled Start Date End Date docusate sodium (COLACE) 100 mg capsuleIndications :constipation Take 1 capsule (100 mg total) by mouth 2 (two) times a day 30 capsule 11/04/2020 4 oxyCODONE (ROXICODONE) 5 mg immediate release tabletIndications: Pain Take 1 tablet (5 mg total) by mouth every 4 (four) hours as needed for pain 30 tablet 11/04/2020 4 documented in this encounter Discharge Disposition Disposition Code Departure Means Destination Discharge to home or self care documented in this encounter H&P Notes * Katlyn Wolff MD - 11/04/2020 8:22 AM CDT I have reviewed the H&P, examined the patient, and endorse the findings as written. Plan of Care : Based on the above findings, I consider Phil Chase Jr. to be an acceptable risk for : Procedure(s): EXAM UNDER ANESTHESIA/ excision of fugeration/possible seton vs fistulatomy/ 60 min We discussed the alternatives, benefits, and risks of this including but not limited to pain, infection, bleeding, continence change, recurrence, etc. and the patient voiced understanding and wishes to proceed. Questions answered. We will proceed with a rectal examination under anesthesia with possible excision and fulguration of anal condyloma and possible seton versus fistulotomy for anal fistula. Source Note - Ivette Swift MD - 11/02/2020 1:42 PM CDT Images from the original note were not included. Anesthesia Evaluation Phil Chase Jr. is a 25 y.o. male Procedure(s): EXAM UNDER ANESTHESIA/ excision of fugeration/possible seton vs fistulatomy/ 60 min Pre-Op Diagnosis Codes: * Anal fistula [K60.3] * Condyloma [A63.0] HISTORY Past Medical History Information obtained from: patient and chart. Neurological Neuro/Psych system: negative Cardiovascular Cardiac system: negative Respiratory Pertinent negatives: non-smoker Respiratory system: negative Hepatic / Heme Hepatic/Heme system: negative Gastrointestinal GI system: negative Renal / Renal/ system: negative Musculoskeletal/Pain Musculoskeletal/Pain system: negative Endocrine / Other + Infectious disease - HIV. Patient Active Problem List Diagnosis ??? Anal fistula ??? Condyloma Past Medical History: Diagnosis Date ??? HIV (human immunodeficiency virus infection) ([facility]/HCC) ??? Neuropathy ([facility]) No past surgical history on file. No Known Allergies Taking? Last Dose Start Date End Date Provider dolutegravir-lamivudine (Dovato) 50-300 mg 07/02/20 10/13/21 Polo Nash MD gabapentin (NEURONTIN) 300 mg capsule 07/02/20 10/13/21 Polo Nash MD nystatin 100,000 unit/mL suspension 10/06/19 -- Polo Nash MD sertraline (ZOLOFT) 50 mg tablet 09/02/19 -- Polo Nash MD triamcinolone (KENALOG) 0.1 % ointment 09/16/19 -- Polo Nash MD No current facility-administered medications for this encounter. Current Outpatient Medications: ??? dolutegravir-lamivudine (Dovato) 50-300 mg ??? gabapentin (NEURONTIN) 300 mg capsule ??? nystatin 100,000 unit/mL suspension ??? sertraline (ZOLOFT) 50 mg tablet ??? triamcinolone (KENALOG) 0.1 % ointment Social History Tobacco Use Smoking Status Never Smoker Smokeless Tobacco Never Used Substance and Sexual Activity Alcohol Use Not on file Substance and Sexual Activity Drug Use Not on file No family history on file. There were no vitals filed for this visit. PT: No results found for requested labs within last 720 hours. INR: No results found for requested labs within last 720 hours. APTT: No results found for requested labs within last 720 hours. Hgb A1C: No results found for requested labs within last 720 hours. CBC RBC: No results found for requested labs within last 720 hours. RDW: No results found for requested labs within last 720 hours. MCHC: No results found for requested labs within last 720 hours. MCH: No results found for requested labs within last 720 hours. MCV: No results found for requested labs within last 720 hours. Hct: No results found for requested labs within last 720 hours. Hgb: No results found for requested labs within last 720 hours. WBC: No results found for requested labs within last 720 hours. MPV: No results found for requested labs within last 720 hours. Platelets: No results found for requested labs within last 720 hours. RDW CV: No results found for requested labs within last 720 hours. RDW Sd: No results found for requested labs within last 720 hours. BMP Glucose: No results found for requested labs within last 720 hours. Calcium: No results found for requested labs within last 720 hours. Sodium: No results found for requested labs within last 720 hours. Potassium: No results found for requested labs within last 720 hours. CO2: No results found for requested labs within last 720 hours. Chloride: No results found for requested labs within last 720 hours. BUN: No results found for requested labs within last 720 hours. Creatinine: No results found for requested labs within last 720 hours. Anesthesia Plan Planned anesthesia: MAC Induction: Induction: intravenous. Postoperative Plan: No plan for postoperative opioid use. No postoperative mechanical ventilation intended. Patient's planned disposition post procedure is Outpatient. No trial extubation planned. Informed Consent: Discussed plan with attending, VICE PRESIDENT CLIENT SERVICES and AA. Consent and Attending signature: I and/or my designee have discussed the anesthesia plan, benefits, possible alternatives, parental presence at time of induction (if indicated), and clinically relevant risks that may include dental injury, unintentional awareness, and/or other complications. The patient and/or parent/legal guardian understand, and agree to proceed. All questions answered. 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 Chase is a 25 y.o. male with HIV who was referred for anal condyloma of the anal canal. On examination in clinic there was also concern for a very low, simple transsphincteric versus subcutaneous fistula. After risks and benefits were discussed the patient was taken to the operating room for the aforementioned procedure. OPERATIVE FINDINGS Approximately 5 mm a fleshy sessile papule lesion in the posterior anal canal approximately 15 mm from the anal verge consistent with an anal canal condyloma. Small external skin tags with no evidence of condylomatous change. Low-lying subcutaneous fistula in the left anterolateral position with external opening approximately 5 mm from the anal verge and internal opening approximately 5 mm from the anal verge proximally with minimal underlying musculature so primary fistulotomy was indicated DESCRIPTION OF PROCEDURE After informed consent was obtained the patient was taken to the operating room and placed prone onthe operating room table. He underwent induction with conscious sedation.The skin of the buttocks was retracted laterally with silk tape. The perineum and perianal skin was prepped with Betadine and sterilely draped. No antibiotics were indicated for this procedure and a time-out was performed. A terminal pudendal nerve block was accomplished using 40 cc of 1:1 mixture of lidocaine 1% and bupivicaine 0.5% with epinephrine. Digital rectal examination was performed with the aforementioned findings. A well lubricated medium-sized Hill-Salazar retractor was then inserted into the anal canal and all quadrants were inspected. A fleshy sessile lesion consistent with an anal condyloma was found in the posterior midline approximately 15 mm from the anal verge. The lesion was excised and sent to pathology as a specimen. The wound base was then inspected and hemostasis was obtained. The anal canal mucosa was then and from [place] no other intra canal lesions were found. Opening to a fistula tract was found approximately 5 mm from the anal verge in the left anterolateral position and the internal opening the was also found approximately 5 mm in a radial direction from the anal verge. A fistula probe was placed through the external opening to the internal opening and the overlying tissue was palpated with the majority being subcutaneous tissue with very minimal if any underlying musculature. A primary fistulotomy was performed and electrocautery was utilized to excise over the course of the tract. Excess heaped up subcutaneous tissue was excised and sent to pathology as a specimen as well. The wounds and irrigated and hemostasis was excellent. There was no evidence anal margin condylomatous disease. There were minimal external skin tags that were palpated with no evidence of dysplasia or condylomatous change. Antibiotic ointment was placed over top the wounds and a sterile dressing was also placed. This then terminated the procedure the patient was taken to PACU in stable condition. Estimated Blood Loss No blood loss documented. IVF 600 mL crystalloid Specimens 1. Anal condyloma. 2. Fistula. Condition on Discharge from the operating room was stable Date: 11/04/2020 Time: 9:39 AM TEACHING ATTESTATION : I was present and directly participated in the entire procedure (including opening and closing). Katlyn Wolff MD supervisor unloading Section of Colon & Rectal Surgery [facility] Dictated note was generated using voice-energy broker technology and some variance may result. documented in this encounter Plan of Treatment Not on file documented as of this encounter Procedures Procedure Name Priority Date/Time Associated Diagnosis Comments SURGICAL PATHOLOGY Routine 11/04/2020 11 :20 AM CDT Anal fistula Condyloma EXAM UNDER ANESTHESIA 11/04/2020 8:59 AM CDT Anal fistula Condyloma documented in this encounter Results * Surgical pathology (11/04/2020 11:20 AM CDT) Tissue (Condyloma) 11/04/2020 9:26 AM CDT Tissue (Fissure / Fistula) 11/04/2020 9:28 AM CDT Narrative PATHOLOGY CH - 11/05/2020 10:13 AM CDT PSYCHIATRIC results best viewed via link to PDF [facility] Department of Pathology [address] [place], [place] [id number] Final Report Patient Name: ??PHIL CHASE Paco Address: ??[address], ??[place], [place] [address] Gender: ??M : ??1995 (Age: 25) Service: ??Surgery Location: [facility] #: ??[id number] Patient Type: ??[facility] Accession # ?[id number] Taken: ??11/04/2020 Received: ??11/04/2020 Accessioned: ??11/04/2020 Reported: ??11/05/2020 Physician(s):Katlyn ??Louis Wolff M.D. Henrique Hardin M.D. Diagnosis: A: Anal condyloma, excisional biopsy: ? -Condyloma fragments ? -Negative for carcinoma B: Anal fistula, fistulotomy: ? -Cauterized squamous mucosa with mixed inflammation and hyperkeratosis -Clinically, anal fistula Sarah Gaona M.D. Report Electronically Reviewed and Signed Out By ??Sarah Gaona M.D. ??11/05/2020 10:13:11 Specimen(s) Received: A: Anal condyloma B: Anal fistula Microscopic Description: Microscopic examination corroborates the diagnosis. Clinical History: Anal fistula, condyloma Procedure: rectal exam under anesthesia, excision and fulguration anal condyloma / seton vs fistulotomy Gross Description: The specimen is submitted in two containers labeled Phil Antonio Salvatore Linn A. ??The first container is labeled anal condyloma . ??It is a shaved piece of pink-herzog granular skin measuring 1.0 cm. ??The specimen is inked, sectioned and all in A B. ??The second container is labeled anal fistula . ??It is four pieces of herzog tissue and skin measuring 3-7 mm. ??All in B. ??Rinku Flaherty M.D., Ph.D./Tanisha Jacobson. REPORT IMAGES AND SCANNED DOCUMENTS, IF INCLUDED, ONLY VIEWABLE IN PDF VERSION OF REPORT The performance characteristics of some immunohistochemical stains, fluorescence in-situ hybridization tests and immunophenotyping by flow cytometry cited in this report (if any) were determined by the Surgical Pathology Department at [facility] as part of an ongoing business quality assurance analyst program and in compliance with federally mandated regulations drawn from the Clinical Laboratory Improvement Act of 1988 (CLIA '88). ??Some of these tests rely on the use of analyte specific reagents and are subject to specific labeling requirements by the US Food and Drug Administration. ??Such diagnostic tests may only be performed in a facility that is certified by the Department of Health and Human Services as a high complexity laboratory under CLIA '88. The FDA has determined that such clearance or approval is not necessary. ??This test is used for clinical purposes. ??It should not be regarded as investigational or for research. ??Nevertheless, federal rules concerning the medical use of analyte specific reagents require that the following disclaimer be attached to the report: This test was developed and its performance characteristics determined by the Surgical Pathology Department [facility]. ??It has not been cleared or approved by the U. S. Food and Drug Administration. Katlyn Wolff MD LAB PATHOLOGY ORDERABLES Fin al Result PATHOLOGY [address] [id number] documented in this encounter Visit Diagnoses Diagnosis Anal fistula Condyloma Condyloma acuminatum documented in this encounter Admitting Diagnoses Diagnosis Anal fistula Condyloma Condyloma acuminatum documented in this encounter Administered Medications Inactive Administered Medications - up to 3 most recent administrations Medication Order MAR Action Action Date Dose Rate Site acetaminophen (TYLENOL) 500 mg tablet - ADS Override Pull Starting on Lara 11/04/20 at 0826, For 1 dose, Created by cabinet override acetaminophen (TYLENOL) tablet 1,000 mg 1,000 mg, oral, Once, On Lara 11/04/20 at 0900, For 1 dose, Pre-Op, Indications: Pre-Emptive AnalgesiaIndications:Pre-Emptive Analgesia Given 11/04/2020 8:35 AM CDT 1,000 mg celecoxib (CeleBREX) 200 mg capsule - ADS Override Pull Starting on Lara 11/04/20 at 0827, For 1 dose, Created by cabinet override celecoxib (CeleBREX) capsule 200 mg 200 mg, oral, Once, On Lara 11/04/20 at 0900, For 1 dose, Pre-Op, Indications: Pre-Emptive PainIndications:Pre-Emptive Pain Given 11/04/2020 8:36 AM CDT 200 mg Lactated Ringer's (LR) infusion 30 mL/hr, intravenous, Continuous, Starting on Lara 11/04/20 at 0900 New Bag 11/04/2020 8:59 AM CDT documented in this encounter Discontinued Medications Medication Sig Discontinue Reason Start Date End Da te sertraline (ZOLOFT) 50 mg tablet Take 50 mg by mouth daily Therapy completed 09/02/2019 11/04/2020 documented as of this encounter Historical Medications * This list may reflect changes made after this encounter. sulfamethoxazole- trimethoprim (BACTRIM DS) 800-160 mg per tablet Take 1 tablet by mouth 2 (two) times a day 10/05/2023 added in this encounter Active and Recently Administered Medications Times are shown in CDT. Scheduled Medication Order 11/02/2020 11/03/2020 11/04/2020 acetaminophen (TYLENOL) tablet 1,000 mg (COMPLETED) 1,000 mg, oral, Once, On Lara 11/04/20 at 0900, For 1 dose, Pre-Op, Indications: Pre-Emptive Analgesia 0835 (Given - Provid er: Henrique Aguilar RN) celecoxib (CeleBREX) capsule 200 mg (COMPLETED) 200 mg, oral, Once, On Lara 11/04/20 at 0900, For 1 dose, Pre-Op, Indications: Pre-Emptive Pain 0836 (Given - Provid er: Henrique Aguilar RN) Continuous Medication Order 11/02/2020 11/03/2020 11/04/2020 Lactated Ringer's (LR) infusion 30 mL/hr, intravenous, Continuous, Starting on Lara 11/04/20 at 0900 0859 (New Bag - Prov ider: ANDREWS Arango)0935 (Anesthesia Volume Adjustment - Provider: ANDREWS Arango)0939 (Continued from OR - Provider: Tarsha Pan RN) PRN Medication Order 11/02/2020 11/03/2020 11/04/2020 bacitracin-polymyxin B (POLYSPORIN) 500-10,000 unit/gram ointment tube (CANCELED) As needed, Starting on Lara 11/04/20 at 0932, Intra-Op 0932 (Given - Provid er: Katlyn Wolff MD) bupivacaine (MARCAINE) 0.25 % (2.5 mg/mL) preservative free injection (CANCELED) As needed, Starting on Lara 11/04/20 at 0930, Intra-Op 0930 (Given - Provid er: Katlyn Wolff MD) sodium chloride 0.9% irrigation (CANCELED) As needed, Starting on Lara 11/04/20 at 0931, Intra-Op 0931 (Given - Provid er: Katlyn Wolff MD) documented in this encounter Orders Medications Ordered That Prasad ht Not Have Been Administered Count Last Ordered Date First Ordered Date bacitracin-polymyxin B (POLY SPORIN) 500-10,000 unit/gram ointment tube 1 11/04/2020 balanced salt soln no.2 irri g. (BSS) intraocular solution - ADS Override Pull 1 11/04/2020 bupivacaine (MARCAINE) 0.25 % (2.5 mg/mL) preservative free injection 1 11/04/2020 diphenhydrAMINE (BENADRYL) i njection 12.5 mg 1 11/04/2020 fentaNYL (SUBLIMAZE) preserv ative free injection 50 mcg 1 11/04/2020 Lactated Ringer's (LR) infusion 1 Lactated Ringer's (LR) infus ion - ADS Override Pull 1 11/04/2020 meperidine (DEMEROL) preserv ative free injection 12.5 mg 1 11/04/2020 naloxone (NARCAN) 0.4 mg/mL injection 0.04-0.4 mg 1 11/04/2020 prochlorperazine (COMPAZINE) injection 10 mg 1 11/04/2020 sodium chloride 0.9% flush 0.5-20 mL 1 10/21 sodium chloride 0.9% irrigation 1 Diet Count Last Ordered Date First Orde red Date ADULT DISCHARGE DIET 1 11/04/2020 Nursing Count Last Ordered Date First Orde red Date DISCHARGE ACTIVITY 2 11/04/2020 DISCHARGE CALL PROVIDER 6 11/04/2020 DISCHARGE DRESSING 2 11/04/2020 documented in this encounter Care Teams Clinical Partner Relationship Specialty Start Date End Date Henrique Hardin MD PCP - General Internal Medicine 10/14/20 10/26/22 documented as of this encounter
--- OUTSIDE RECORDS SUMMARY | 2024-08-10 03:35 | XMS_ITS | Encounter Summary ---
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 DULoxetine DR, 30 mg, oral, Daily penicillin G, 4 Million Units, intravenous, Q4H KIMBERLEY sertraline, 100 mg, oral, Daily PRN Medications Medication Dose Route Frequency Last Admin ondansetron (ZOFRAN) injection 4 mg 4 mg intravenous Q4H PRN 4 mg at 10/12/23 0740 traZODone (DESYREL) tablet 50 mg 50 mg oral Nightly PRN Medication Compliance: Compliant Physical Exam: Vitals: 10/12/23 0830 BP: 116/57 Pulse: 53 Resp: 17 Temp: 36.6 ??C (97.9 ??F) SpO2: 98% A physical exam was performed by the primary team and reviewed. Mental Status Exam: General appearance and Behavior: Seen sleeping upon approach. Appears stated age, well-groomed and in clean hospital scrubs. Good eye contact, cooperative with interview, and in no acute distress. Normal psychomotor activity present. Speech: Normal rate, normal rhythm, normal amount, normal volume, and normal tone. Spontaneous withnormal latency Thought Process: Logical, Linear, and Goal-directed Content of Thought: SI: Negative HI: Negative Delusions: No delusions elucidated AH: Negative VH: Negative Mood: much better Affect: Euthymic, full-range, full-amount, stable, mood congruent, and Appropriate to conversation Insight: Fair Judgement: Fair Sensorium and Intellect: Intact to conversation Orientation: Awake and alert Memory: Average based on conversation Calculations: Not done/Not clinically indicated Attention/Concentration: Intact to conversation Abstraction: Not done/Not clinically indicated Language: Average vocabulary based on conversation Fund of Knowledge: Averaged based on conversation Lab/Radiology/Diagnostic Review: Laboratory review: Lab results in the last 24 hours: Recent Results (from the past 24 hour(s)) CBC with auto differential Collection Time: 10/11/23 [...] Detected N. gonorrhoeae Not Detected Not Detected and Imaging review: I have Radiology Impressions last 48 hours: CT Temporal Bones WO Contrast Result Date: 10/12/2023 1. Dehiscence of the bilateral sigmoid plates. 2. Otherwise, unremarkable CT temporal bones. Dictated by: Tj Hopper MD MRI Spine Thoracic and Lumbar W WO Contrast Result Date: 10/11/2023 1. No abnormal enhancement in the thoracic and lumbar spine. No significant degenerative changes ofthe thoracic spine. Minimal degenerative changes of the lumbar spine without high-grade neuroforaminal or spinal canal stenosis. 2. T2 hyperintense enhancing lesion in the liver dome may represent a cavernous hemangioma but is incompletely evaluated on this examination. Consider further evaluation with dedicated liver protocol cross-sectional imaging if clinically indicated. Dictated by: MD Eulogio The radiology attending physician has personally reviewed this study, and had reviewedand/or edited this written report and agrees with it. Electronically signed by: Sheri Garcia M.D. CT Head WO Contrast Result Date: 10/11/2023 1. No acute intracranial hemorrhage, hydrocephalus, or herniation. 2. Cerebral atrophy with associated ex vacuo dilatation of the ventricles which has progressed significantly from 2018, greater thanexpected for age. Nonspecific hypoattenuation in the periventricular white matter. Dictated by: Salvatore Sandoval M.D. The radiology attending physician has personally reviewed this study, and had reviewed and/or edited this written report and agrees with it. Electronically signed by: KatieD. Jose M.D. PRIMARY DIAGNOSIS: PTSD Borderline personality disorder Assessment: Patient is a 28-year-old male with a past medical history of unspecified mood disorder and polysubstance use who presents to the hospital with active SI and leg/back pain. Psychiatry was consulted for diagnostic clarity and medication management. Given patient's lack of confidence in Zoloft, this is being caused titrated with duloxetine, chosen for its known affect on neurologic pain while continuing Abilify which patient believes is very helpful. Patient is currently on a high dose of doxepin and due to its sedative properties plan to taper this medication. This morning, patient states his SI has completely resolved (denies passive and active SI). Therefore, will continue cross titration of antidepressants, continuation of Abilify, and tapering of the doxepin. Recommendations: - Continue Zoloft 100 mg daily with plan to decrease to 50 mg on Saturday 10/14 and to discontinue on Monday 10/16 - Initiate Duloxetine 30 mg today 10/11 with plan to increase to 60 mg on Saturday 10/14 - Continue Abilify 5 mg daily - Decrease dose of doxepin from 25 mg to 20 mg nightly with plan to decrease to 15 mg Thursday 10/12and then decrease again to 10 mg on Friday 10/13 Psychiatry consults will continue to follow. For questions, concerns, or to request a re-evaluation, please contact the Psychiatry Consult Service at [phone]. All recommendations preliminary until note has been cosigned/attested by a Psychiatry attending (Sunday - Sunday during regular business hours). Rahel Cruz MD PGY-2 Configuration Management Administrator Cosigned by Dallas Mckoy MD at 10/15/2023 10:41 AM CDT Associated attestation - Dallas Mckoy MD - 10/15/2023 10:41 AM CDT The resident/fellow saw and examined the patient, we discussed their findings, and I am in agreement with the plan based on the discussion with the resident/fellow. I did not personally examine the patient. * Plan of Care - Sherine Etienne CNS - 10/12/2023 10:46 AM CDT Infectious Diseases Division HIV Nurse Navigator Note Today I met with Phil Chase to discuss to provide patient education and support linkage to care HIV care. Nurse Navigation services are provided to patients free of charge through the infectious diseases division. Nurse navigation services provide an individualized approach that includes intensive outreach and collaboration with existing support systems to increase patient engagement in HIV care. Recent HIV lab results: Lab Results Component Value Date ZGY6ILO Detected 08/02/2017 WOZ0MFA 74,474 08/02/2017 HUD0NPD 4.87 08/02/2017 CD4ABS 237 (L) 10/11/2023 CD4ABS 225 (L) 10/11/2023 Relevant HIV linkage to care history: Approximate year of initial HIV diagnosis: 2017 Currently on antiretroviral therapy: Froilan Has pt ever seen an outpatient HIV provider for care: Mady Ortega MD [address] [place] [id number] Most recent clinic patient received outpatient HIV care through: June 2023, was to follow up with [facility] for HIV care in July 2023. He saw dentistry in July 2023. Barriers to care: Barriers to HIV care patient has experienced in the past: Forget appointments and No transportation Collaboration with outpatient support services: Called BERTA Fleming (through [facility]) and we left a message with new appointment details. Scheduled ID follow up with [facility] for next week. The patients insurance is: Payor: [place] [employer] / Plan: [place] [employer] / Product Type: [place]ICA[place] / Follow-up clinic appointment for HIV care has been scheduled on: 11/21/23 at [facility] with Mady Sullivan MD Additional resources provided today:bus pass, scheduling assistance, and patient education- educated about Medicaid transportation and he was already aware. Gave bus passes in case [place] transportation isn't available or doesn't work out. Patient education provided: Benefits of routine outpatient clinic attendance, medication adherence and community resources. Sherine Etienne MSN, RN Infectious Diseases Nurse Navigator * Consults, Subsequent - Joe Goodwin MD - 10/12/2023 9:44 AM CDT Infectious Disease Team Inpatient Progress Note Patient Name: Phil Chase Assessment/Plan Phil Chase is a 28 y.o. male with PMHx of HIV on ART, transverse myelitis, prior treated latent syphilis 11/2022, and methamphetamine use disorder who presented to the hospital initially with suicidal ideations as well as worsening LE weakness and paresthesias over the last week. Lab testing with c/f new syphilis infection and possible neurosyphilis. ID consulted for Abx management. 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 Pending an LP for further workup.Started on IV PCN. HIV Infection: Diagnosed in 2018, on Biktarvy. Follows at [facility]. CD4 237/13%. VL pending. Pt states he is 100% compliant with his ART. Amphetamine use disorder: Recent IV drug use, pt states he's now sober RHM: Given recent IVDU and shared needle as well as sexual encounters, would screen pt for STIs. Antibiotics: PCN 10/10 - current Micro: GC/CT NAAT neg for rectum, urine, throat HAV immune HBV non immune, non infected HCV Ab neg >Recommendations: - Continue penicillin G 4MU q4hrs IV for empiric neurosyphilis treatment - Obtain LP, send for: opening pressure, cell count w/ diff, protein glucose, VDRL, routine cultures, CrAg, HSV PCR - Ophthalmology and ENT consults appreciated - F/up HIV VL - Would recommend giving recombivax HB 40 mcg/mL (high dose) for hepatitis B vaccination - Please obtain CBC w/ diff and CMP at least weekly while on above Abx MDM Supplementary Attestation: On this date of service I managed this patient with HIV infection, possible neurosyphilis. They have at least 1 acute or chronic illness in severe exacerbation, progression, or with side effects of treatment. These issues pose a potential threat to life or bodily function in the absence of appropriate treatment as described in the note. I independently interpreted tests such as RPR, CBC, CMP which showed findings discussed elsewhere in this note. I personally reviewed notes by primary team. Patient is being monitored for toxicity from the following antimicrobials: n/a. ID to continue following this patient. Please reach out to primary ID team for any questions or concerns. Joe Goodwin MD Occupational Therapy Instructortool checker [facility] Infectious Diseases Subjective NAEO. Afeb VSS Current Medications: IV Medication: Scheduled Medication: Scheduled Medications Medication Dose Route Frequency ARIPiprazole (ABILIFY) tablet 5 mg 5 mg oral Daily yraequhmjkx-jccqkjbqgfpjd-rqfddpjay (BIKTARVY) 50-200-25 mg per tablet 1 tablet 1 tablet oral Daily doxepin (SINEquan) capsule 20 mg 20 mg oral Nightly DULoxetine DR (CYMBALTA) extended release capsule 30 mg 30 mg oral Daily penicillin G potassium 4 million units/40 mL in sterile water (premix) 4 Million Units 4 Million Units intravenous Q4H KIMBERLEY sertraline (ZOLOFT) tablet 100 mg 100 mg oral Daily Objective Vitals/ I/O's: Vitals: 10/12/23 0830 BP: 116/57 Pulse: 53 Resp: 17 Temp: 36.6 ??C (97.9 ??F) SpO2: 98% 24hr Min/Max: Temp Min: 36.5 ??C (97.7 ??F) Max: 36.6 ??C (97.9 ??F) Pulse Min: 49 Max: 79 BP Min: 110/59 Max: 144/89 Resp Min: 16 Max: 18 SpO2 Min: 95 % Max: 100 % Intake/Output Summary (Last 24 hours) at 10/12/2023 0909 Last data filed at 10/12/2023 0401 Gross per 24 hour Intake 120 ml Output -- Net 120 ml Physical Exam: General: NAD Eyes: PERRL HENT: NCAT, MMM, OP clear Cardiovascular: RRR, no m/g/r Pulm: lungs CTAB, no wheezes or crackles GI: soft and nondistended, no TTP Ext: MAEW Skin: no rashes Psych: appropriate mood and affect Neuro: AAO x 3 Lab/Radiology/Diagnostic Review: Recent Labs Lab Units 10/11/23 1542 10/10/23 1127 WBC K/cumm 4.0 3.7* HEMOGLOBIN g/dL 14.9 14.9 HEMATOCRIT % 45.6 45.3 PLATELETS K/cumm 285 324 Recent Labs Lab Units 10/11/23 1542 10/10/23 1127 SODIUM mmol/L 142 140 POTASSIUM PLASMA mmol/L 4.3 4.3 CHLORIDE mmol/L 107 104 CO2 mmol/L 27 27 BUN SERUM mg/dL 10 11 CREATININE mg/dL 1.08 1.06 GLUCOSE mg/dL 82 78 CALCIUM mg/dL 9.3 9.5 Recent Labs Lab Units 10/11/23 1542 10/10/23 1127 ALK PHOS Units/L 92 101 BILIRUBIN TOTAL mg/dL 0.3 0.4 TOTAL PROTEIN g/dL 8.2 9.3* ALT Units/L 19 27 AST Units/L 31 40 * Initial Assessments - Bee Paulino RN - 10/12/2023 9:40 AM CDT CM Initial Assessment Interview Note Information Obtained From: Patient (10/12/23 0889) Admission Source: Non Health Care facility Impression: Patient is a 28 yo with a history HIV, Latent Syphilis, Polysubstance use disorder/IVDUpresented with acute on chronic low back pain and RLE weakness/paresthesia. Plan Includes: Anticipated discharge to Substance rehab with family for support Primary Source of Transportation: Does the patient need discharge transport arranged?: Yes Has discharge transport been arranged?: No Details of Transportation: [place] (10/12/23 0864) Health Insurance Coverage: [place] Prescription Coverage: yes [facility]: [facility] [place], [place] - [address] [address] [place], [place] - [address] [facility] [address] [facility] [address] Primary Care Provider: Mady Sullivan MD Prior to Admission: Functional Status: Minimal assist with ADLs Primary Caregiver: Self Support System: Parent (Dolores Gomez/mother [phone]) Home Care Services: No Outpatient Services: No Durable Medical Equipment: None Living Arrangements: Other (Comment) ([facility]) Type of Residence: Substance abuse facility Does patient wish to return to care facility?: No, wishes for other placement Will the care facility allow the patient to return?: Yes, patient can return Steps in home?: No steps inside or outside Medication management: Independent (10/12/23853) Potential discharge needs include: Home Health: None (10/12/23853) Dialysis: N/a Behavioral Health Services: Behavioral Health Services: No (10/12/23853) Patient expects to be Discharged to: Substance abuse facility, (10/12/23853) Additional Information: CM confirmed with patient PCP, pharmacy, phone and address. Explained role and purpose of CM. Patient stated he has been at [facility] for rehab and would like to discharge to a different Substance rehab. He is asking for assistance. CM has updated Deisi the and medical team. Patient's Identified Problem/Goal Problem: Ensure acute medical [...] community resources. Plan includes: 1. Collaboration with patient, MD, direct care nurse, Canal Equipment Mechanic, and other members of the health care team to assure needed interventions completed. 2. Return patient to optimal level of self-care post discharge. 3. Street Commissioner will follow for Discharge Planning - interventions as needed 4. Anticipated level of care at discharge 5. Planned Discharge Disposition Based on a comprehensive family assessment, assistance with instrumental activities of daily livingafter discharge will be provided by SELF Through the course of our work I determined that the SELF possesses the skill and ability to provide and monitor the care of the patient when he returns home. SELF has the capacity to provide/monitor/arrange for the care of the patient. Finally, we determined that SELF has the knowledge of available resources and that combining them with their existing resources will suffice to sustain and care for the patient when he returns home. The treatment team is aware of this information. All are in agreement with the aftercare plan. Bee Paulino RN,BSN,CM For emergency needs from 4:31p.m. - 7:59a.m., please call the dynamics ax consultant [phone]. For weekend/holiday needs from 8:00a.m. - 4:30p.m., please call the Weekend Street Commissioner . * Plan of Care - Machelle Pinto RN - 10/11/2023 7:49 PM CDT Goals: Monitor vs/labs; remain hemodynamically stable; IVabx; promote healing and comfort Summary: Problem: Discharge Planning Goal: Understanding discharge needs will improve Outcome: Progressing Problem: Fall Risk Goal: Ability to state ways to decrease the risk of falls will improve Outcome: Progressing Goal: Will remain free from falls Outcome: Progressing Goal: Will remain free from injury from falls Outcome: Progressing * Medical Student - Margarita Breaux - 10/11/2023 2:40 PM CDT Internal Medicine History and Physical Date: 10/11/23 CARE TEAM Patient: Phil Chase Primary Care Physician: Henrique Hardin MD Room: [id number] Attending Physician: Alexandra Vasquez Subjective Chief Complaint: My leg is weak HPI: Phil Chase is a 28 y.o. male with HIV (2016, on Biktarvy), transverse myelitis (2020, residual RLE weakness, foot drop, paresthesia), syphilis (s/p penicillin G November 2022), mood disorder with SI, and meth use disorder, presenting with 1 week of worsening RLE weakness/pain, rightsided blurry vision, headache, and N/V/D. Patient has baseline RLE weakness, paresthesias, foot drop, and gait imbalance but says symptoms have been acutely worsening in past week. Also developed nausea and vomiting in the past week, as wellas runny diarrhea w/ incontinent bowel movements today. Also has worsening blurry vision and floaters in right eye. Has worsening vertigo and bitemporal headaches. Denies changes in urination. He also developed lower back pain 1 week ago while he was lifting boxes that had not increased or decreased in intensity. Patient has been at [facility] (sober living facility) since he was last discharged 10/05/23 fora suicide attempt by overdose. During this admission his zoloft was increased. He reports feeling about the same since discharge, had passive SI on Sunday but denies recent active SI, plans, or self-harm attempts. Patient has history of methamphetamine use, states that he has been sober since 09/15/23. He usuallysmokes it but recently shared needles with someone. He was last sexually active one month ago and had 3 sexual partners in the last 3 months. He occasionally uses condoms. He has anal and oral sex with male partners. His partners use prep. He has history of a lesion in his anus that he was supposed to get surgery for but missed his appointment. He has had on/off bloody stools for years. Past Medical History: Diagnosis Date HIV (human immunodeficiency virus infection) ([facility]) Neuropathy ([facility]) No past surgical history on file. Medications Prior to Admission Medication Sig Dispense Refill Last Dose ARIPiprazole (ABILIFY) 5 mg tablet Take 1 tablet (5 mg total) by mouth daily 30 tablet 0 10/11/2023 wnywbyirbop-dimxcvowkgmvt-xxejnrqnk (BIKTARVY) 50-200-25 mg tablet Take 1 tablet by mouth daily 30 tablet 0 10/11/2023 doxepin (SINEquan) 25 mg capsule Take 1 capsule (25 mg total) by mouth nightly 30 capsule 0 10/11/2023 hydrOXYzine (ATARAX) 25 mg tablet Take 1 tablet (25 mg total) by mouth every 4 (four) hours as needed for anxiety 30 tablet 0 10/11/2023 sertraline (ZOLOFT) 100 mg tablet Take 1 tablet (100 mg total) by mouth daily 30 tablet 0 10/11/2023 traZODone (DESYREL) 50 mg tablet Take 1 tablet (50 mg total) by mouth nightly as needed for sleep 30 tablet 0 10/11/2023 No Known Allergies Social History Tobacco Use Smoking status: Never Smokeless tobacco: Never Substance and Sexual Activity Drug use: Defer Sexual activity: Defer Alcohol Use: Patient Declined (10/03/2023) AUDIT-C Frequency of Alcohol Consumption: Patient declined Average Number of Drinks: Patient declined Frequency of Binge Drinking: Patient declined No family history on file. Review of Systems: All other systems were reviewed and are negative except as noted above in the HPI. Objective Scheduled Medications: ARIPiprazole, 5 mg, oral, Daily oykyfkjinea-sensmzpdqboab-bthgwgtgo, 1 tablet, oral, Daily doxepin, 25 mg, oral, Nightly penicillin G, 4 Million Units, intravenous, Q4H KIMBERLEY sertraline, 100 mg, oral, Daily Continuous Medications: PRN Medications: traZODone Vitals: Most Recent : Vitals: 10/11/23 1305 BP: 144/89 Pulse: 67 Resp: 16 Temp: 36.6 ??C (97.9 ??F) SpO2: 100% Arrival Vitals Temp 10/10/23 0922 36.7 ??C (98.1 ??F) Pulse 10/10/23 0922 81 Resp 10/10/23 0922 16 BP 10/10/23 0922 134/81 SpO2 10/10/23 0922 98 % Temp src 10/10/23 0922 Oral Heart Rate Source 10/10/23 1900 Pulse Oximetry Patient Position 10/10/23 1900 Sitting BP Location 10/10/23 1900 Left arm FiO2 (%) -- 24hr Min/Max: Temp Min: 36.6 ??C (97.9 ??F) Max: 36.6 ??C (97.9 ??F) Pulse Min: 45 Max: 88 BP Min: 98/60 Max: 144/89 Resp Min: 13 Max: 18 SpO2 Min: 94 % Max: 100 % I/O: No intake/output data recorded. No intake/output data recorded. Physical exam: Cardiac: RRR, no murmurs rubs or gallops Pulmonary: Clear to auscultation bilaterally Abdomen: Non-tender, slightly distended/bloated Skin: Flat, dark-pigmented spots on buccal mucosa, right forearm, lower back Neuro: AO x 4, one-word answers and flat affect but normal lability No cranial nerve deficits Strength 5/5 bilaterally, slightly weaker in right arm/leg Sensation slightly diminished in right extremities Gait unbalanced with significant right foot drop and weakness Lab/Radiology/Diagnostic Review: Recent Results (from the past 24 hour(s)) T-helper cells (CD4) count Collection Time: 10/11/23 7:33 AM Result Value Ref Range CD4 pct 13 (L) 31 - 64 % CD4 Absolute 225 (L) 365 - 1,294 cells/mcL T-helper cells (CD4) count Collection Time: 10/11/23 8:24 AM Result Value Ref Range CD4 pct 13 (L) 31 - 64 % CD4 Absolute 237 (L) 365 - 1,294 cells/mcL Protime-INR Collection Time: 10/11/23 9:46 AM Result Value Ref Range PT 11.1 10.3 - 13.7 sec INR 0.97 0.90 - 1.20 I have reviewed the above laboratory results. Imaging Results: MRI Spine Thoracic and Lumbar W WO Contrast Result Date: 10/11/2023 1. No abnormal enhancement in the thoracic and lumbar spine. No significant degenerative changes ofthe thoracic spine. Minimal degenerative changes of the lumbar spine without high-grade neuroforaminal or spinal canal stenosis. 2. T2 hyperintense enhancing lesion in the liver dome may represent a cavernous hemangioma but is incompletely evaluated on this examination. Consider further evaluation with dedicated liver protocol cross-sectional imaging if clinically indicated. Dictated by: MD Eulogio The radiology attending physician has personally reviewed this study, and had reviewedand/or edited this written report and agrees with it. Electronically signed by: Sheri Garcia M.D. CT Head WO Contrast Result Date: 10/11/2023 1. No acute intracranial hemorrhage, hydrocephalus, or herniation. 2. Cerebral atrophy with associated ex vacuo dilatation of the ventricles which has progressed significantly from 2018, greater thanexpected for age. Nonspecific hypoattenuation in the periventricular white matter. Dictated by: Salvatore Sandoval M.D. The radiology attending physician has personally reviewed this study, and had reviewed and/or edited this written report and agrees with it. Electronically signed by: KatieD. Jose M.D. Assessment/Plan No problem-specific Assessment & Plan notes found for this encounter. #N/V/D #Headache, vertigo, right-eye blurred vision #Acute on chronic RLE weakness Given patient's history of HIV, syphilis, 4-fold rise in RPR titers, and high- risk behaviors, patient's acutely worsening neurological symptoms most concerning for neurosyphilis. Also possible given patient's HIV and CT showing cerebral atrophy and ex vacuo dilatation of ventricles is HIV encephalitis or PML (less likely as patient's CD4 count >200). Opportunistic infections such as cryptococcus and toxoplasmosis, as well as [employer] lymphoma are unlikely given no focal lesions on CT. Cryptosporidium could be possible cause of both diarrhea and encephalopathy. 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 - Consider surgical exploration/biopsy/resection #HIV #Unprotected intercourse #IV needle-sharing Patient reports good compliance with Biktarvy, CD4 237. He has engaged in several high-risk behaviors in the past 3 months including unprotected anal and oral sex with 3 partners, as well as IV needle sharing. - HIV viral load pending - HSV, mycology - STI screen #Back pain Patient has lower back pain with point tenderness over the lumbar spine, which started 1 week ago when patient was lifting boxes. MRI negative for fractures, spinal cord stenosis, or soft tissue abnormalities. Most likely muscle strain given onset during weight lifting. - If pain persists, consider lidocaine patch #Right liver lesion MRI showed hyperintense lesion in liver dome possibly representing cavernous hemangioma. Patient liver enzymes normal and currently asymptomatic. Given HIV and diarrhea, liver fluke or entamoeba histolytica can be considered but unlikely with normal LFT's and eosinophils. - Stool O&P pending #Mood disorder, past SI/SA #Nightmares Most recent SA attempt a few weeks ago with inpatient psychiatry stay, zoloft increased at this time to 200 mg daily. Patient denies current SI/HI, plan, or desire to self-harm. - Psych following - Continue home zoloft, abilify, atarax, doxepin, trazodone #Methamphetamine abuse disorder Patient came from [facility], reports sobriety since 09/15/23, UDS positive for methamphetamines. - SW consulted to plan safe discharge to sober living facility. Cosigned by Marcie Ingram MD at 10/11/2023 8:44 PM CDT * Plan of Care - Laly Fernandez RN - 10/11/2023 1:53 PM CDT Goals: Summary: Problem: Discharge Planning Goal: Understanding discharge needs will improve Outcome: Progressing * Significant Event - Cuco Chavarria MD - 10/11/2023 1:42 PM CDT EYE DILATION NOTE The patient's eyes were dilated by ophthalmology using 1% tropicamide and 2.5% phenylephrine in both eyes (OU) at 1340 on 10/11/23. The primary team and nursing staff were [...] or concerns. Thank you, Cuco Chavarria MD PGY-1 Ophthalmology * Significant Event - Omkar Leonard MD - 10/11/2023 7:39 AM CDT ED Hospitalist Event Note In my role as the ED hospitalist, I have seen and examined this patient and reviewed the chart. I have discussed with the ED team and will assume care of this patient until an inpatient bed and team is assigned. Phil Chase is a 28 y.o. patient with significant past medical history of HIV diagnosed in 2018, transverse myelitis, syphilis, history of IV drug use presented to the ED with complaints of SI,worsening lower back pain and right lower extremity weakness/paresthesias over the course of past week. Patient started to have suicidal thoughts starting 10/08, and had a plan to cut his wrists in Apr 2023. No current plan for suicide. Mentioned that was taking anti- depressants routinely as well as compliant with the Biktarvy. Suicidal ideation Pending psych eval, consult in place Suicide precautions, elopement precautions Continue Zoloft, aripiprazole, doxepin HIV Diagnosed in 2018 CD4 286 in June 2023, negative HIV viral load in June 2023 Continue Biktarvy Ordered CD4, and HIV RNA Acute low back pain RLE weakness tremor Along with right lower extremity weakness and paresthesia MRI Spine Thoracic and Lumbar W WO Contrast Comment: No abnormal enhancement in the thoracic and lumbar spine CT Head WO Contrast Comment: No acute intracranial hemorrhage, hydrocephalus, or herniation LP and labs including CSF-VDRL ordered for neurosyphilis, IR consult. INR ordered consulted ID Syphilis he was treated for latent syphilis back in 11/2022 with an RPR 1:2047. His RPR came down to 1:32 as recent as 2 weeks ago. Now today it's 1:128, confirming a new infection. Health dept was contacted by the ID, appreciate input RPR 1:128 (10/09) from last 1:32 (10/01). received 3 penicillin shots couple months ago LP and labs including CSF-VDRL ordered for neurosyphilis, IR consult. 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 I have reviewed all pertinent vital signs, allergies, and history available in the chart. Summary: 28 y.o. malewith a history of HIV, transverse myelitis, syphilis, and IV drug use who is presenting with concerns of sharp lower back pain and weakness and paresthesias in his right leg for 1 week with progressive worsening. Also having SI with plan to cut wrists. MRI spine and CT head unrevealing RPR titer worsened Pending: LP if have time Dispo: admit to medicine for work-up of neurosyphilis ED Course as of 10/11/23 0933 Time: 10/09 1201 Comment: Spoke with the patient in anticipation of transition to Behavioral Health pod. Patient's primary concern about self-harm no specific plan patient seen last week states that when he was admitted the group therapy sessions with the most helpful and he does not have access to those in the outpatient arena does state that he has a therapist that he has been able to talk to within the past week and that the symptoms are not particularly worse than when he was here before but have not improved remaining the same By: Vin Chau MD Time: 10/09 1443 Comment: Pending: psych evcory, MRI, RPR By: Martha Gill MD Time: 10/09 1506 Comment: Attending sign out: Summary of care: SI with recent stressors (dad out of longterm), RLE weakness (from prior transverse myelitis and paresthesias). Hx of HIV, syphillis, transverse myelitis, IVDU. Pending MRI, RPR. By: Arnold Martinez MD Time: 10/09 1633 Comment: CD4 286 in June 2023, negative HIV viral load in June 2023 By: Arnold Martinez MD Time: 10/09 1633 Value: RPR Titer Blood(!): RPR, quant 1:128(!) Comment: RPR 1:128 from last 1:32. Patient states that he had received a series of 3 penicillin shots a couple of months ago. Also, notes that he has a headache, dizziness, and occasional vomiting over the past week. Will follow-up MRI and consider LP after MRI completion. By: Calvin Cabrales MD Time: 10/09 2220 Value: MRI Spine Thoracic and Lumbar W WO Contrast Comment: No abnormal enhancement in the thoracic and lumbar spine By: Calvin Cabrales MD Time: 10/09 2220 Value: CT Head WO Contrast Comment: No acute intracranial hemorrhage, hydrocephalus, or herniation By: Calvin Cabrales MD Time: 10/09 3711 Comment: Patient to be admitted to Medicine for further workup of right lower extremity weakness and associated symptoms. Concern for neurosyphilis. Given continued active SI, psychiatry will likely need to be consulted inpatient. By: Calvin Cabrales MD Time: 10/09 519 Comment: Attending Signout from : 28M with hx HIV, transverse myelitis, syphilis, IVDU, chronic RLE weakness now presenting with back pain and worsening RLE weakness. HCT and MRI Spine unrevealing.RPR worsening. Has active SI; will plan for admission to medicine with psych consult as an inpatient. By: Anamaria Brannon MD Time: 10/10 632 Comment: TRANSITION OF CARE: 28 y.o. male with h/o HIV (last CD4 in our system 64), IVDU, prior syphillis, transverse myelitis, chronic RLE weakness here with back pain and worsening RLE weakness. CT head, MRI spine unrevealing.Worsening RPR titer and active SI. Pending: bed Dispo: Admit medicine, psych consult By: Braden Lucero MD Time: 10/10 0709 Comment: ATTENDING TRANSITION OF CARE IElkin MD, am taking signout from [place] (Attending). I have reviewed all pertinent vital signs allergies, and history available in the chart. Summary: 28 y.o. male HIV, IVDU, syphilis, transverse myelitis, chronic RLE weakness. Admit med forneurosyphilis work up. Had worsening back pain, weakness. Pending: Hx of SI, RPR titers up treated in the past for the syphilis. MRI spine neg. Biktarvy ?? Dispo: admit med, they will do LP. UDS positive amphet. Discharge 10/04 from psych for depression, SI By: Elkin Fisher MD Jafari, Christianne Lauren, Resident 10/11/23932 * ED Re-evaluation Note - Calvin Cabrales MD - 10/10/2023 2:49 PM CDT ED Re-evaluation TRANSITION OF CARE: I, Calvin Cabrales MD, am taking signout. I have reviewed all pertinent vital signs, allergies, and history available in the chart. Summary: Phil Chase is a 28 y.o. male with a history of HIV, transverse myelitis, syphilis, and IV drug use who is presenting with concerns of lower back pain and RLE weakness/paresthesias acutely worse over the past week. Patient also notes SI with plan to cut wrists. Pending: Psych Eval, MRI, RPR Dispo: Likely admit to [facility] medicine ED Course as of 10/11/23 0713 Time: 10/09 1201 Comment: Spoke with the patient in anticipation of transition to Behavioral Health pod. Patient's primary concern about self-harm no specific plan patient seen last week states that when he was admitted the group therapy sessions with the most helpful and he does not have access to those in the outpatient arena does state that he has a therapist that he has been able to talk to within the past week and that the symptoms are not particularly worse than when he was here before but have not improved remaining the same By: Vin Chau MD Time: 10/09 1443 Comment: Pending: psych eval, MRI, RPR By: Martha Gill MD Time: 10/09 1506 Comment: Attending sign out: Summary of care: SI with recent stressors (dad out of longterm), RLE weakness (from prior transverse myelitis and paresthesias). Hx of HIV, syphillis, transverse myelitis, IVDU. Pending MRI, RPR. By: Arnold Martinez MD Time: 10/09 1633 Comment: CD4 286 in June 2023, negative HIV viral load in June 2023 By: Arnold Martinez MD Time: 10/09 1633 Value: RPR Titer Blood(!): RPR, quant 1:128(!) Comment: RPR 1:128 from last 1:32. Patient states that he had received a series of 3 penicillin shots a couple of months ago. Also, notes that he has a headache, dizziness, and occasional vomiting over the past week. Will follow-up MRI and consider LP after MRI completion. By: Calvin Cabrales MD Time: 10/09 2220 Value: MRI Spine Thoracic and Lumbar W WO Contrast Comment: No abnormal enhancement in the thoracic and lumbar spine By: Calvin Cabrales MD Time: 10/09 2220 Value: CT Head WO Contrast Comment: No acute intracranial hemorrhage, hydrocephalus, or herniation By: Calvin Cabrales MD Time: 10/09 8632 Comment: Patient to be admitted to Medicine for further workup of right lower extremity weakness and associated symptoms. Concern for neurosyphilis. Given continued active SI, psychiatry will likely need to be consulted inpatient. By: Calvin Cabrales MD Time: 10/09 6738 Comment: Attending Signout from Li: 28M with hx HIV, transverse myelitis, syphilis, IVDU, chronic RLE weakness now presenting with back pain and worsening RLE weakness. HCT and MRI Spine unrevealing.RPR worsening. Has active SI; will plan for admission to medicine with psych consult as an inpatient. By: Anamaria Brannon MD Time: 10/10 0533 Comment: TRANSITION OF CARE: 28 y.o. male with h/o HIV (last CD4 in our system 64), IVDU, prior syphillis, transverse myelitis, chronic RLE weakness here with back pain and worsening RLE weakness. CT head, MRI spine unrevealing.Worsening RPR titer and active SI. Pending: bed Dispo: Admit medicine, psych consult By: Braden Lucero MD Time: 10/10 0709 Comment: ATTENDING TRANSITION OF CARE I, Elkin Fisher MD, am taking signout from [place] (Attending). I have reviewed all pertinent vital signs allergies, and history available in the chart. Summary: 28 y.o. male HIV, IVDU, syphilis, transverse myelitis, chronic RLE weakness. Admit med forneurosyphilis work up. Had worsening back pain, weakness. Pending: Hx of SI, RPR titers up treated in the past for the syphilis. MRI spine neg. Biktarvy ?? Dispo: admit med, they will do LP. UDS positive amphet. Discharge 10/04 from psych for depression, SI By: Elkin Fisher MD Wilson, John Ralph, MD Resident 10/10/23 4955 * Plan of Care - Karmen Oglesby RN - 10/10/2023 9:47 AM CDT 10/10/23 0942 Type Readmission </= 30 Days? Yes High Utilizer >/= 4 Hospitalizations in 12 Months? No Is this Patient Active with an Outpatient Case Management Program? No Record Review of Prior Admission Was this Readmission Planned? No Disposition at Prior Admit D/C Home High Risk Medications Psychiatric Is Patient ACO No Patient Interview Primary Readmission Reason New complications since discharge/not associated with prior admission As part of the readmission prevention initiative, ED CM receives an automated alert on patient who was discharged from [facility] inpatient admission </=7 days (DC 10/05/2023; ED treatment team aware). ED workup/orders/tx plan pending. Chart review performed. SDOH identified and not a High Utilizer (=>4 admits past 12 mos). Upcoming scheduled appts per [facility] EMR: [facility] [address] [facility] [id number] Next Steps: Follow up on 10/12/2023 No ED CM/SW needs identified at this time, but please contact ED CM or ED SW for questions and/or assistance or for decision to admit so that any appropriate admission alternative can be discussed. documented in this encounter Plan of Treatment Pending Results Name Type Priority Associated Diagnoses Date /Time Erythrocyte sedimentation rate Lab STAT 10/10/2023 11:27 AM CDT CRP (acute phase) Lab STAT 024 11:27 AM CDT Cryptosporidium and Giardia antigen assay Stool Microbiology Routine 10/12/2023 1:00 PM CDT Cryptosporidium and Giardia antigen assay Stool Microbiology Routine 10/12/2023 1:00 PM CDT Hepatitis A antibody, IgM Blood Microbiology Routine 10/11/2023 3:42 PM CDT Scheduled Orders Name Type Priority Associated Diagnoses Order Schedule Erythrocyte sedimentation rate Lab STAT Once for 1 Occurrences starting 10/10/2023 until 10/10/2023 CRP (acute phase) Lab STAT Once fo r 1 Occurrences starting 10/10/2023 until 10/10/2023 Cryptosporidium and Giardia antigen assay Stool Microbiology Routine Once for 1 Occurrences starting 10/11/2023 until 10/11/2023 Cryptosporidium and Giardia antigen assay Microbiology Routine Once for 1 Occurrences starting 10/11/2023 until 10/11/2023 Hepatitis A antibody, IgM Microbiology Routine Once for 1 Occurrences starting 10/11/2023 until 10/11/2023 Scheduled Referrals Name Type Priority Associated Diagnoses Order Schedule Ambulatory referral order to Physical Therapy - Outpatient Referral Routine 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HCC) Expected: 11/09/2023 (Approximate), Expires: 10/25/2024 documented as of this encounter Procedures Procedure Name Priority Date/Time Associated Diagnosis Comments EGFR Timed 10/24/2023 8:24 PM CDT DIFFERENTIAL AUTO Timed 10/24/2023 8:2 4 PM CDT RPR TITER Routine 10/24/2023 8:24 PM CDT CBC WITH AUTO DIFFERENTIAL Timed 10/24/2023 8:24 PM CDT RPR Routine 10/24/2023 8:24 PM CDT BASIC METABOLIC PANEL Timed 10/24/2023 8:24 PM CDT HEPATIC FUNCTION PANEL Routine 10/24/2023 12:41 AM CDT EGFR Timed 10/19/2023 9:06 AM CDT DIFFERENTIAL AUTO Timed 10/19/2023 9:0 6 AM CDT CBC WITH AUTO DIFFERENTIAL Timed 10/19/2023 9:06 AM CDT BASIC METABOLIC PANEL Timed 10/19/2023 9:06 AM CDT POCT GLUCOSE DEVICE Routine 10/13/2023 7 :58 PM CDT MRI INTERNAL AUDITORY CANAL INCL BRAIN W WO CONTRAST IP Routine 10/13/2023 9:51 AM CDT EGFR Routine 10/12/2023 8:53 PM CDT DIFFERENTIAL AUTO Routine 10/12/2023 8:5 3 PM CDT CBC WITH AUTO DIFFERENTIAL Routine 10/12/2023 8:53 PM CDT BASIC METABOLIC PANEL Routine 10/12/2023 8:53 PM CDT HERPES SIMPLEX VIRUS (HSV) PCR Routine 10/12/2023 1:00 PM CDT CELL COUNT W REFLEX DIFFERENTIAL, CSF Routine 10/12/2023 1:00 PM CDT MISCELLANEOUS TEST SENDOUT CHEMISTRY Routine 10/12/2023 1:00 PM CDT MYCOLOGY (FUNGAL) CULTURE AND CRYPTOCOCCUS ANTIGEN, CSF STAT 10/12/2023 1:00 PM CDT CRYPTOCOCCAL ANTIGEN, CSF STAT 10/12/2023 1:00 PM CDT BACTERIAL CULTURE AND GRAM STAIN, CSF Routine 10/12/2023 1:00 PM CDT VDRL, CSF STAT 10/12/2023 1:00 PM CDT CSF PROTEIN Routine 10/12/2023 1:00 PM CDT GLUCOSE, CSF Routine 10/12/2023 1:00 PM CDT IR LUMBAR PUNCTURE, DIAGNOSTIC INCL FLUORO GUIDANCE ED 10/12/2023 12:49 PM CDT CYTOLOGY Routine 10/12/2023 12:25 PM CDT Suicidal ideation Syphilis PTSD (post-traumatic stress disorder) Borderline personality disorder (CMS/HCC) (HCC) MISCELLANEOUS TEST SENDOUT CHEMISTRY Routine 10/12/2023 12:[address] TEMPORAL BONES WO CONTRAST IP Routine 10/11/2023 8:24 PM CDT N. GONORRHOEAE/C. TRACHOMATIS AMPLIFICATION Routine 10/11/2023 4:59 PM CDT N. GONORRHOEAE/C. TRACHOMATIS AMPLIFICATION Routine 10/11/2023 4:59 PM CDT EGFR STAT 10/11/2023 3:42 PM CDT DIFFERENTIAL AUTO STAT 10/11/2023 3:4 2 PM CDT CBC WITH AUTO DIFFERENTIAL STAT 10/11/2023 3:42 PM CDT HEPATITIS C ANTIBODY Routine 10/11/2023 3:42 PM CDT HEPATITIS A ANTIBODY, IGM Routine 10/11/2023 3:42 PM CDT HEPATITIS A ANTIBODY, TOTAL Routine 10/11/2023 3:42 PM CDT HEPATITIS B CORE ANTIBODY, TOTAL Routine 10/11/2023 3:42 PM CDT HEPATITIS B SURFACE ANTIBODY (IMMUNE STATUS) Routine 10/11/2023 3:42 PM CDT HEPATITIS B SURFACE ANTIGEN Routine 10/11/2023 3:42 PM CDT COMPREHENSIVE METABOLIC PANEL STAT 10/11/2023 3:42 PM CDT PROTIME-INR Routine 10/11/2023 9:46 AM CDT HIV-1 RNA, QUANTITATIVE, PCR STAT 10/11/2023 8:24 AM CDT T-HELPER CELLS (CD4) COUNT STAT 10/11/2023 8:24 AM CDT T-HELPER CELLS (CD4) COUNT STAT 10/11/2023 7:[address] HEAD WO CONTRAST ED 10/10/2023 9 :48 PM CDT MRI SPINE THORACIC LUMBAR W WO CONTRAST ED Urgent/IP Urgent 10/10/2023 6:59 PM CDT RPR TITER STAT 10/10/2023 2:27 PM CDT RPR STAT 10/10/2023 2:27 PM CDT URINALYSIS AND REFLEX TO MICROSCOPIC AND CULTURE STAT 10/10/2023 1:46 PM CDT DRUGS OF ABUSE SCREEN, URINE WITHOUT CONFIRMATION STAT 10/10/2023 1:46 PM CDT EGFR STAT 10/10/2023 11:27 AM CDT DIFFERENTIAL AUTO STAT 10/10/2023 11: 27 AM CDT THYROID FUNCTION CASCADE STAT 10/10/2023 11:27 AM CDT CBC WITH AUTO DIFFERENTIAL STAT 10/10/2023 11:27 AM CDT ERYTHROCYTE SEDIMENTATION RATE STAT 10/10/2023 11:27 AM CDT CRP (ACUTE PHASE) STAT 10/10/2023 11: 27 AM CDT ETHANOL STAT 10/10/2023 11:27 AM CDT COMPREHENSIVE METABOLIC PANEL STAT 10/10/2023 11:27 AM CDT documented in this encounter Results * (ABNORMAL) RPR Titer Blood (10/24/2023 8:24 PM CDT) Pathologist [facility] RPR qn 1:64(A) Nonreactive Blood 10/24/2023 8:24 PM CDT 10/24/2023 10:02 PM CDT Derick Knox MD LAB MICROBIOLOGY - GENER AL ORDERABLES Final Result Performing Organization Address [facility]/ZIP Co de Phone Number [facility] Department of [employer] [place], [place] [id number] * (ABNORMAL) RPR Blood (10/24/2023 8:24 PM CDT) [facility] RPR Reactive(A ) Nonreactive Blood 10/24/2023 8:24 PM CDT 10/24/2023 10:02 PM CDT us Derick Konx MD LAB MICROBIOLOGY - GENER AL ORDERABLES Final Result [facility] [place] [place] [address] * eGFR (10/24/2023 8:24 PM CDT) Pathologist [facility] eGFR 79 >=60 mL/min/1. 73 m2 Comment: Interpretive Data [...] interpretive data was last reviewed 2021. Blood 10/24/2023 8:24 PM CDT 10/24/2023 8:47 PM CDT us Derick Knox MD LAB BLOOD ORDERABLES Fin al Result Performing Organization Address City/State/[facility] Co de Phone Number [facility] Department of Laboratories [place], [place] [phone] * Differential, auto (10/24/2023 8:24 PM CDT) Pathologist [facility] Neutrophil abs 2.0 1.5 - 6.5 K/cumm Imm gran abs 0.0 0.0 - 0.1 K/cumm [facility] Lymphocyte abs 1.5 0.8 - 3.3 K/cumm [facility] Monocyte abs 0.5 0.2 - 0.8 K/cumm [facility] Eosinophil abs 0.3 0.0 - 0.5 K/cumm [facility] Basophil abs 0.0 0.0 - 0.1 K/cumm [facility] Neutrophil pct 46.7 % [facility] Comment: Interpretive Data Percent cell count reference ranges are not reported, since discordance with absolute values may lead to misinterpretation of CBC data. Current Interpretive Data was last revised on 2017. Imm gran pct 0.5 % [facility] Comment: Interpretive Data Percent cell count reference ranges are not reported, since discordance with absolute values may lead to misinterpretation of CBC data. Current Interpretive Data was last revised on 2017. Lymphocyte pct 35.7 % [facility] Comment: Interpretive Data Percent cell count reference ranges are not reported, since discordance with absolute values may lead to misinterpretation of CBC data. Current Interpretive Data was last revised on 2017. Monocyte pct 10.5 % [facility] Comment: Interpretive Data Percent cell count reference ranges are not reported, since discordance with absolute values may lead to misinterpretation of CBC data. Current Interpretive Data was last revised on 2017. Eosinophil pct 6.1 % [facility] Comment: Interpretive Data Percent cell count reference ranges are not reported, since discordance with absolute values may lead to misinterpretation of CBC data. Current Interpretive Data was last revised on 2017. Basophil pct 0.5 % [facility] Comment: Interpretive Data Percent cell count reference ranges are not reported, since discordance with absolute values may lead to misinterpretation of CBC data. Current Interpretive Data was last revised on 2017. Blood 10/24/2023 8:24 PM CDT 10/24/2023 8:47 PM CDT us Derick Knox MD LAB BLOOD ORDERABLES Fin al Result [facility] Department [place] [address] * (ABNORMAL) CBC with auto differential (10/24/2023 8:24 PM CDT) WBC 4.3 3.8 - 9.9 K/cumm Hgb 13.4 13.0 - 17.5 g/dL [facility] Hct 41.8 38.9 - 50.3 % [facility] Plt 252 150 - 400 K/cumm [facility] MPV 9.4 9.1 - 12.3 fL [facility] RBC 5.21 4.30 - 5.80 M/cumm [facility] MCV 80.2(L) 81.3 - 96.4 fL [facility] MCH 25.7(L) 27.1 - 33.3 pg [facility] MCHC 32.1(L) 32.3 - 35.7 g/dL [facility] RDW CV 15.9(H) 11.1 - 14.9 % [facility] RDW SD 45.5 35.7 - 48.1 fL [facility] NRBC abs 0.00 0.00 - 0.01 K/cumm [facility] Blood 10/24/2023 8:24 PM CDT 10/24/2023 8:47 PM CDT Derick Knox MD LAB BLOOD ORDERABLES [facility] al Result [facility] Department [place] [address] * Basic metabolic panel (10/24/2023 8:24 PM CDT) Sodium 138 135 - 145 mmol/L Potassium, pl 4.3 3.3 - 4.9 mmol/L [facility] Comment:Hemolyzed; Potassium value may be falsely elevated by as much as 0.3-0.5 mmol/L. Suggest redraw and reanalysis. Chloride 102 97 - 110 mmol/L [facility] CO2 28 22 - 32 mmol/L [facility] Anion gap 8 2 - 15 mmol/L [facility] BUN 12 6 - 25 mg/dL [facility] Creatinine 1.26 0.80 - 1.30 mg/dL [facility] Glucose 117 70 - 199 mg/dL [facility] [...] 2022. Calcium 8.9 8.5 - 10.3 mg/dL [facility] Blood 10/24/2023 8:24 PM CDT 10/24/2023 8:47 PM CDT Derick Knox MD LAB BLOOD ORDERABLES Fin al Result Performing Organization Address [facility]/ZIP Co de Phone Number [facility] [place] [address] * Hepatic function panel (10/24/2023 12:41 AM CDT) Pathologist [facility] Bilirubin, total 0.2 0.1 - 1.2 mg/dL Bilirubin, direct <0.2 0.1 - 0.3 mg/dL [facility] Protein, pl 8.3 6.5 - 8.5 g/dL [facility] Albumin 4.1 3.5 - 5.0 g/dL [facility] Alk phos 81 40 - 130 Units/L [facility] ALT 28 7 - 55 Units/L [facility] AST 30 10 - 50 Units/L [facility] Blood 10/24/2023 12:4 1 AM CDT 10/24/2023 1:02 AM CDT Narrative [facility] - 10/24/2023 1:32 AM CDT For monitoring while on penicillin. us Pilar Johnson NP LAB BLOOD ORDERABLES Final Re sult Performing Organization Address [facility]/ZIP Co de Phone Number [facility] Department [place] [address] * eGFR (10/19/2023 9:06 AM CDT) eGFR >90 >=60 mL/min/1. 73 [...] interpretive data was last reviewed 2021. Blood 10/19/2023 9:06 AM CDT 10/19/2023 9:16 AM CDT us Crystal Nation MD LAB BLOOD ORDERABLES Final Resul t [facility] [place] [address] * (ABNORMAL) Differential, auto (10/19/2023 9:06 AM CDT) Neutrophil abs 2.2 1.5 - 6.5 K/cumm Imm gran abs 0.0 0.0 - 0.1 K/cumm [facility] Lymphocyte abs 1.9 0.8 - 3.3 K/cumm [facility] Monocyte abs 0.1(L) 0.2 - 0.8 K/cumm [facility] Eosinophil abs 0.1 0.0 - 0.5 K/cumm [facility] Basophil abs 0.0 0.0 - 0.1 K/cumm [facility] Neutrophil pct 49.8 % [facility] Comment: Interpretive Data Percent cell count reference ranges are not reported, since discordance with absolute values may lead to misinterpretation of CBC data. Current Interpretive Data was last revised on 2017. Imm gran pct 0.2 % [facility] Comment: Interpretive Data Percent cell count reference ranges are not reported, since discordance with absolute values may lead to misinterpretation of CBC data. Current Interpretive Data was last revised on 2017. Lymphocyte pct 43.1 % [facility] Comment: Interpretive Data Percent cell count reference ranges are not reported, since discordance with absolute values may lead to misinterpretation of CBC data. Current Interpretive Data was last revised on 2017. Monocyte pct 3.2 % [facility] Comment: Interpretive Data Percent cell count reference ranges are not reported, since discordance with absolute values may lead to misinterpretation of CBC data. Current Interpretive Data was last revised on 2017. Eosinophil pct 3.0 % [facility] Comment: Interpretive Data Percent cell count reference ranges are not reported, since discordance with absolute values may lead to misinterpretation of CBC data. Current Interpretive Data was last revised on 2017. Basophil pct 0.7 % [facility] Comment: Interpretive Data Percent cell count reference ranges are not reported, since discordance with absolute values may lead to misinterpretation of CBC data. Current Interpretive Data was last revised on 2017. Blood 10/19/2023 9:06 AM CDT 10/19/2023 9:15 AM CDT us Crystal Nation MD LAB BLOOD ORDERABLES Final Resul t [facility] Department [place] [address] * (ABNORMAL) CBC with auto differential (10/19/2023 9:06 AM CDT) [facility] WBC 4.3 3.8 - 9.9 K/cumm Hgb 15.4 13.0 - 17.5 g/dL [facility] Hct 47.8 38.9 - 50.3 % [facility] Plt 274 150 - 400 K/cumm [facility] MPV 9.3 9.1 - 12.3 fL [facility] RBC 5.97(H) 4.30 - 5.80 M/cumm [facility] MCV 80.1(L) 81.3 - 96.4 fL [facility] MCH 25.8(L) 27.1 - 33.3 pg [facility] MCHC 32.2(L) 32.3 - 35.7 g/dL [facility] RDW CV 15.8(H) 11.1 - 14.9 % [facility] RDW SD 44.4 35.7 - 48.1 fL [facility] NRBC abs 0.00 0.00 - 0.01 K/cumm [facility] Blood 10/19/2023 9:06 AM CDT 10/19/2023 9:15 AM CDT us Crystal Nation MD LAB BLOOD ORDERABLES Final Resul t [facility] [place] [address] * (ABNORMAL) Basic metabolic panel (10/19/2023 9:06 AM CDT) [facility] Sodium 134(L) 135 - 145 mmol/L Potassium, pl 4.2 3.3 - 4.9 mmol/L [facility] Chloride 97 97 - 110 mmol/L [facility] CO2 27 22 - 32 mmol/L [facility] Anion gap 10 2 - 15 mmol/L [facility] BUN 14 6 - 25 mg/dL [facility] Creatinine 1.10 0.80 - 1.30 mg/dL [facility] Glucose 163 70 - 199 mg/dL [facility] Comment: Interpretive Data Fasting glucose >/= 126 [...] 2022. Calcium 9.3 8.5 - 10.3 mg/dL [facility] Blood 10/19/2023 9:06 AM CDT 10/19/2023 9:16 AM CDT Crystal Nation MD LAB BLOOD ORDERABLES Final Resul t Performing Organization Address [facility] Co de Phone Number [facility] Department [place] [address] * POCT glucose (10/13/2023 7:58 PM CDT) [facility] Signature Glucose, POC 114 70 - 199 mg/dL Blood 10/13/2023 7:58 PM CDT 10/13/2023 7:58 PM CDT Crystal Nation MD LAB POCT ORDERABLES - DEVICE Fin al Result Performing Organization Address [facility] Co de Phone Number [facility] Department [place] [address] * MRI Internal Auditory Canal incl Brain W WO Contrast (10/13/2023 9:51 AM CDT) Anatomical Region Laterality Modality Head and Neck N/A Magnetic Resonan ce 10/13/2023 12:3 0 PM CDT Impressions 10/13/2023 2:42 PM CDT 1. ??There is no abnormal enhancement involving the inner ear structures, internal auditory canals, or temporal bones. Trace mucosal thickening in the inferior mastoid cells, left greater than right. 2. ??Punctate focus of restricted diffusion in the left temporal lobe, nonspecific, may represent sequela of prior ischemic, inflammatory, or infectious etiology. ??Recommend short-term repeat MRI examination for follow-up. 3. Generalized cerebral parenchymal volume loss with commensurate prominence of ventricles and sulci. 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 Dictated by: David Chin MD The radiology attending physician has personally reviewed this study, and had reviewed and/or edited this written report and agrees with it. Electronically signed by: Jules Graves MD Narrative 10/13/2023 2:42 PM CDT EXAMINATION: Magnetic resonance imaging (MRI) of the brain and brainstem without and with contrast HISTORY: 28-year-old male, history of HIV and syphilis, concern for otosyphilis TECHNIQUE: Multiplanar multi-weighted MRI of the brain and brainstem was performed without and with intravenous contrast using the general brain protocol. Additionally sequences detailing the internal auditory canals and posterior fossa were acquired as a part of the internal auditory canal protocol. Contrast information: 16 mL Gadoterate Meglumine COMPARISON: CT temporal bone 10/11/2023. ??CT head 10/10/2023. FINDINGS: Generalized cerebral parenchymal volume loss with commensurate prominence of ventricles and sulci. 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 The cerebellopontine angles are normal, with no evidence of extra-axial mass or aneurysm. The VII/VIII nerve complexes appear normal. The upper cervical spinal cord and spine are normal. There is no abnormal contrast enhancement. The scalp and calvarium are normal. The superior sagittal sinus demonstrates normal venous flow. The corpus callosum is normal in shape and signal intensity. The posterior fossa is unremarkable. The pituitary and sella are normal. The brainstem and craniocervical junction are unremarkable. Punctate focus of restricted diffusion in the left temporal lobe (series 12 image 42), nonspecific, may represent sequela of prior ischemic, inflammatory, or infectious etiology. The susceptibility weighted sequences reveal no evidence of acute or chronic hemorrhage. Small right sphenoid retention cyst. Trace mucosal thickening in the inferior mastoid cells, left greater than right. The orbits appear normal. Normal flow voids are demonstrated in the carotid arteries and basilar artery. Procedure Note Jules Graves MD - 10/13/2023 EXAMINATION: Magnetic resonance imaging (MRI) of the brain and brainstem without and with contrast HISTORY: 28-year-old male, history of HIV and syphilis, concern for otosyphilis TECHNIQUE: Multiplanar multi-weighted MRI of the brain and brainstem was performed without and with intravenous contrast using the general brain protocol. Additionally sequences detailing the internal auditory canals and posterior fossa were acquired as a part of the internal auditory canal protocol. Contrast information: 16 mL Gadoterate Meglumine COMPARISON: CT temporal bone 10/11/2023. CT head 10/10/2023. FINDINGS: Generalized cerebral parenchymal volume loss with commensurate prominence of ventricles and sulci. 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 The cerebellopontine angles are normal, with no evidence of extra-axial mass or aneurysm. The VII/VIII nerve complexes appear normal. The upper cervical spinal cord and spine are normal. There is no abnormal contrast enhancement. The scalp and calvarium are normal. The superior sagittal sinus demonstrates normal venous flow. The corpus callosum is normal in shape and signal intensity. The posterior fossa is unremarkable. The pituitary and sella are normal. The brainstem and craniocervical junction are unremarkable. Punctate focus of restricted diffusion in the left temporal lobe (series 12 image 42), nonspecific, may represent sequela of prior ischemic, inflammatory, or infectious etiology. The susceptibility weighted sequences reveal no evidence of acute or chronic hemorrhage. Small right sphenoid retention cyst. Trace mucosal thickening in the inferior mastoid cells, left greater than right. The orbits appear normal. Normal flow voids are demonstrated in the carotid arteries and basilar artery. IMPRESSION: 1. There is no abnormal enhancement involving the inner ear structures, internal auditory canals, or temporal bones. Trace mucosal thickening in the inferior mastoid cells, left greater than right. 2. Punctate focus of restricted diffusion in the left temporal lobe, nonspecific, may represent sequela of prior ischemic, inflammatory, or infectious etiology. Recommend short-term repeat MRI examination for follow-up. 3. Generalized cerebral parenchymal volume loss with commensurate prominence of ventricles and sulci. 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 Dictated by: David Chin MD The radiology attending physician has personally reviewed this study, and had reviewed and/or edited this written report and agrees with it. Electronically signed by: Jules Graves MD us Crystal Nation MD IMG MRI PROCEDURES Final Result * eGFR (10/12/2023 8:53 PM CDT) eGFR >90 >=60 mL/min/1. 73 [...] interpretive data was last reviewed 2021. Blood 10/12/2023 8:53 PM CDT 10/12/2023 9:32 PM CDT us Crystal Nation MD LAB BLOOD ORDERABLES Final Resul t [employer] [facility] One [facility] [place] [address] * Differential, auto (10/12/2023 8:53 PM CDT) Neutrophil abs 1.9 1.5 - 6.5 K/cumm Imm gran abs 0.0 0.0 - 0.1 K/cumm [facility] Lymphocyte abs 1.9 0.8 - 3.3 K/cumm [facility] Monocyte abs 0.4 0.2 - 0.8 K/cumm [facility] Eosinophil abs 0.2 0.0 - 0.5 K/cumm [facility] Basophil abs 0.0 0.0 - 0.1 K/cumm [facility] Neutrophil pct 42.6 % [facility] Comment: Interpretive Data Percent cell count reference ranges are not reported, since discordance with absolute values may lead to misinterpretation of CBC data. Current Interpretive Data was last revised on 2017. Imm gran pct 0.5 % [facility] Comment: Interpretive Data Percent cell count reference ranges are not reported, since discordance with absolute values may lead to misinterpretation of CBC data. Current Interpretive Data was last revised on 2017. Lymphocyte pct 42.9 % [employer] [facility] [employer] Comment: Interpretive Data Percent cell count reference ranges are not reported, since discordance with absolute values may lead to misinterpretation of CBC data. Current Interpretive Data was last revised on 2017. Monocyte pct 9.5 % [employer] [facility] [employer] [facility] Comment: Interpretive Data Percent cell count reference ranges are not reported, since discordance with absolute values may lead to misinterpretation of CBC data. Current Interpretive Data was last revised on 2017. Eosinophil pct 3.8 % [employer] [facility] [employer] [facility] Comment: Interpretive Data Percent cell count reference ranges are not reported, since discordance with absolute values may lead to misinterpretation of CBC data. Current Interpretive Data was last revised on 2017. Basophil pct 0.7 % [facility] Comment: Interpretive Data Percent cell count reference ranges are not reported, since discordance with absolute values may lead to misinterpretation of CBC data. Current Interpretive Data was last revised on 2017. Blood 10/12/2023 8:53 PM CDT 10/12/2023 9:32 PM CDT Crystal Nation MD LAB BLOOD ORDERABLES Final Resul t Performing Organization Address City/[facility]/ZIP Co de Phone Number [facility] Department [place] [address] * Basic metabolic panel (10/12/2023 8:53 PM CDT) Sodium 136 135 - 145 mmol/L Potassium, pl 4.8 3.3 - 4.9 mmol/L [facility] Comment:Hemolyzed; Potassium value may be falsely elevated by as much as 0.6-1.0 mmol/L. Suggest redraw and reanalysis. Chloride 103 97 - 110 mmol/L [facility] CO2 26 22 - 32 mmol/L [facility] Anion gap 7 2 - 15 mmol/L [facility] BUN 10 6 - 25 mg/dL [facility] Creatinine 0.98 0.80 - 1.30 mg/dL [facility] Glucose 99 70 - 199 mg/dL [facility] [...] 2022. Calcium 9.3 8.5 - 10.3 mg/dL [facility] Blood 10/12/2023 8:53 PM CDT 10/12/2023 9:32 PM CDT Crystal Nation MD LAB BLOOD ORDERABLES Final Resul t Performing Organization Address City/[facility]/ZIP Co de Phone Number [facility] One [facility] Department [place] [address] * (ABNORMAL) CBC with auto differential (10/12/2023 8:53 PM CDT) Pathologist [facility] WBC 4.4 3.8 - 9.9 K/cumm Hgb 14.7 13.0 - 17.5 g/dL [facility] Hct 45.0 38.9 - 50.3 % [facility] Plt 299 150 - 400 K/cumm [facility] MPV 9.7 9.1 - 12.3 fL [facility] RBC 5.71 4.30 - 5.80 M/cumm [facility] MCV 78.8(L) 81.3 - 96.4 fL [facility] MCH 25.7(L) 27.1 - 33.3 pg [facility] MCHC 32.7 32.3 - 35.7 g/dL [facility] RDW CV 15.7(H) 11.1 - 14.9 % [facility] RDW SD 44.1 35.7 - 48.1 fL [facility] NRBC abs 0.03(H) 0.00 - 0.01 K/cumm [facility] Blood 10/12/2023 8:53 PM CDT 10/12/2023 9:32 PM CDT Crystal Nation MD LAB BLOOD ORDERABLES Final Resul t Performing Organization Address City/[facility] de Phone Number [facility] Department [place] [address] * Miscellaneous Test Sendout Chemistry (10/12/2023 1:00 PM CDT) Pathologist [facility] Test name Treponema Pallidum Ab, IFA, CSF Result 1 See Comment [facility] Comment:Credited, test not i ndicated. CSF 10/12/2023 1:00 PM CDT 10/12/2023 6:37 PM CDT Crystal Nation MD LAB BLOOD ORDERABLES Final Resul t Performing Organization Address City/[facility] Co de Phone Number [facility] [place] [address] * Cryptococcal antigen, CSF CSF (10/12/2023 1:00 PM CDT) [facility] Cryptococcal Antigen Negative Negative Comment: The cryptococcal [...] Current interpretive data last revised 2018. CSF 10/12/2023 1:00 PM CDT 10/12/2023 3:04 PM CDT Crystal Nation MD LAB MICROBIOLOGY - GENERAL ORDER ALOK Final Result Performing Organization Address City/[facility]/[place] [address] * Bacterial culture and gram stain, CSF CSF (10/12/2023 1:00 PM CDT) Pathologist [facility] Direct Specimen Exam Stain: Cytospin Gram stain shows: No polymorphonuclear leukocytes seen. No organisms seen. Report Final Report: No growth [facility] CSF 10/12/2023 1:00 PM CDT 10/12/2023 3:04 PM CDT Narrative [facility] - 10/17/2023 1:33 PM CDT Testing performed by [facility] ([phone]). Crystal Nation MD LAB MICROBIOLOGY - GENERAL ORDER ALOK Final Result [facility] [place] [address] * VDRL, CSF CSF (10/12/2023 1:00 PM CDT) Pathologist [facility] VDRL CSF Negative Negative [facility] Comment: Test Performed by: [facility] [address] [id number] [place] Operator: Henrique Miller M.D. Ph.D.; CLIA# [id number] CSF 10/12/2023 1:00 PM CDT 10/12/2023 2:48 PM CDT Crystal Nation MD LAB MICROBIOLOGY - GENERAL ORDER ALOK Final Result [facility] Department [place] [address] [facility] * Protein, total, CSF (10/12/2023 1:00 PM CDT) Pathologist [facility] Protein, CSF 30 5 - 45 mg/dL CSF 10/12/2023 1:00 PM CDT 10/12/2023 4:27 PM CDT Crystal Nation MD LAB BODY FLUIDS AND STOOLS ORDER ALOK Final Result [facility] Department [place] [address] * Mycology (fungal) culture and Cryptococcus antigen, CSF CSF (10/12/2023 1:00 PM CDT) Pathologist [facility] Report Final Report: No growth of fungus CSF 10/12/2023 1:00 PM CDT 10/12/2023 3:04 PM CDT Narrative [facility] - 11/10/2023 11:31 AM CDT The Cryptococcal Antigen is resulted under a separate test. ??Please see ? Cryptococcal Antigen, CSF? for result. Testing performed by [facility] ([phone]). Crystal Nation MD LAB MICROBIOLOGY - GENERAL ORDER ALOK Final Result Performing Organization Address [facility] Co de Phone Number [facility] [place] [address] * Herpes Simplex Virus (HSV) PCR CSF (10/12/2023 1:00 PM CDT) [facility] HSV DNA Not Detected Not Detected [facility] Comment: Interpretive Data This assay is performed [...] Data was last reviewed on 11/19/2018 CSF 10/12/2023 1:00 PM CDT 10/12/2023 4:03 PM CDT Narrative [facility] - 10/13/2023 12:35 PM CDT Crystal Nation MD LAB MICROBIOLOGY - GENERAL ORDER ALOK Final Result Performing Organization Address [facility] de Phone Number [facility] [place] [address] [facility] * Glucose, CSF (10/12/2023 1:00 PM CDT) Pathologist [facility] Glucose, CSF 62 mg/dL Comment: Reference Interval Information: CSF Glucose should be 60-66% of the most current plasma glucose concentration (milligrams/deciliter) CLIN. CHEM. 41/3, [id number] (1994), Clinical Utility of Biochemical Analysis of Cerebrospinal Fluid, Larry Bone and Vince Pearson. Current interpretive data was last revised on 2019. CSF 10/12/2023 1:00 PM CDT 10/12/2023 4:27 PM CDT Crystal Nation MD LAB BODY FLUIDS AND STOOLS ORDER ALOK Final Result Performing Organization Address [facility] de Phone Number [facility] Department [place] [address] * (ABNORMAL) Cell count w/reflex diff, CSF (10/12/2023 1:00 PM CDT) Tube Number, CSF Tube 1 Color, CSF Colorless Colorless [facility] Clarity, CSF Clear Clear [facility] Nucleated cells, CSF 10(H) 0 - 5 /cumm [facility] RBC, CSF 0 0 - 0 /cumm [facility] CSF 10/12/2023 1:00 PM CDT 10/12/2023 2:48 PM CDT Crystal Nation MD LAB BODY FLUIDS AND STOOLS ORDER ALOK Final Result Performing Organization Address [facility] de Phone Number [facility] Department [place] [address] * IR Lumbar Puncture, Diagnostic incl Fluoro Guidance (10/12/2023 12:49 PM CDT) Anatomical Region Laterality Modality Spine N/A Radio Fluoroscop y 10/12/2023 12:5 3 PM CDT Impressions 10/12/2023 2:25 PM CDT Successful lumbar puncture under fluoroscopic guidance. Dictated by: Manan Calabrese M.D. The radiology attending physician has personally reviewed this study, and had reviewed and/or edited this written report and agrees with it. Electronically signed by: Jeormy Davis M.D. Narrative 10/12/2023 2:25 PM CDT EXAMINATION: Fluoroscopically guided lumbar puncture HISTORY: Suspected neurosyphilis. TECHNIQUE: The risks and benefits of the lumbar puncture including, but not limited to infection, bleeding, spinal headache, cerebrospinal fluid (CSF) leak requiring blood patch procedure, and irritation or damage to nerves causing pain or permanent injury were discussed with the patient. The patient was given the opportunity to ask questions. The patient acknowledged understanding, gave verbal and written consent, and wished to proceed. A time-out was performed prior to the procedure. Attending physician: Dr. Jeromy Davis M.D. was present for the entire procedure. The L4-L5 level was localized with fluoroscopy. The ribs were counted on prior cross-sectional imaging and this level confirmed. The skin overlying this level was sterilely prepped, draped, and infiltrated with 1% lidocaine for local anesthesia. Under intermittent fluoroscopic guidance, a 22 gauge 4 inch Sprotte spinal needle was inserted into the thecal sac at this level. Clear CSF was identified. A total of 11 ml of CSF was removed and placed into 5 specimen tubes. The patient was then transferred to the nursing area for further observation and 1 hour of bedrest. OPENING PRESSURE: Not performed. Procedure Note Jeromy Davis MD PhD - 10/12/2023 EXAMINATION: Fluoroscopically guided lumbar puncture HISTORY: Suspected neurosyphilis. TECHNIQUE: The risks and benefits of the lumbar puncture including, but not limited to infection, bleeding, spinal headache, cerebrospinal fluid (CSF) leak requiring blood patch procedure, and irritation or damage to nerves causing pain or permanent injury were discussed with the patient. The patient was given the opportunity to ask questions. The patient acknowledged understanding, gave verbal and written consent, and wished to proceed. A time-out was performed prior to the procedure. Attending physician: Dr. Jeromy Davis M.D. was present for the entire procedure. The L4-L5 level was localized with fluoroscopy. The ribs were counted on prior cross-sectional imaging and this level confirmed. The skin overlying this level was sterilely prepped, draped, and infiltrated with 1% lidocaine for local anesthesia. Under intermittent fluoroscopic guidance, a 22 gauge 4 inch Sprotte spinal needle was inserted into the thecal sac at this level. Clear CSF was identified. A total of 11 ml of CSF was removed and placed into 5 specimen tubes. The patient was then transferred to the nursing area for further observation and 1 hour of bedrest. OPENING PRESSURE: Not performed. IMPRESSION: Successful lumbar puncture under fluoroscopic guidance. Dictated by: Manan Calabrese M.D. The radiology attending physician has personally reviewed this study, and had reviewed and/or edited this written report and agrees with it. Electronically signed by: Jeromy Davis M.D. Crystal Nation MD IMG FLUOROSCOPY PROCEDURES Final Result * Cytology (10/12/2023 12:25 PM CDT) Fluid (Cerebrospinal Fluid (Cytology)) 10/12/2023 12:25 PM CDT Narrative PATHOLOGY [facility] - 10/16/2023 2:17 PM CDT EPIC results best viewed via link to PDF [facility] [place] [address] Note to Patients: This report may contain a detailed description of human tissue sent by a health care provider to the laboratory for pathologic evaluation. The content of this report is essential for diagnosis and may provide important critical findings. This information may be unfamiliar to patients to review without a medical professional present. It is advised that the patient review this report in the presence of a health care provider who can answer questions and explain the details. CYTOPATHOLOGY REPORT FINAL Patient Name: ?? PHIL CHASE Gender: ??M : ??1995 (Age: 28) Address: ??[address] [place] [address] ??[id number] Hospital #: ??[id number] Taken:10/12/2023 Received:10/12/2023 Reported: 10/16/2023 Patient Type: [facility] Inpatient ?? Service: Medical Location: [place] [address] Physician(s): ??Jeromy Davis M.D. FINAL DIAGNOSIS A. ??Cerebrospinal fluid: ?- Negative for malignancy blc/10/16/2023 08:14 By this signature, I attest that the above diagnosis is based upon my personal examination of the slides(and/or other material indicated in the diagnosis). Robles Will M.D. Report Electronically Reviewed and Signed Out By ??Robles Will M.D. 10/16/2023 14:17:51 Diana Deon MS, CT (ASCP) Gross Description A. ??Cerebrospinal fluid: ??7.5 ml of clear fluid - 2 Diff-Quik stained cytospins. (pc) Clinical Diagnosis and History suicide ideation, syphilis, PTSD (post-traumatic stress disorder), borderline personality disorder REPORT IMAGES AND SCANNED DOCUMENTS, IF INCLUDED, ONLY VIEWABLE IN PDF VERSION OF REPORT The performance characteristics of some immunohistochemical stains, in-situ hybridization and fluorescence in-situ hybridization tests and immunophenotyping by flow cytometry cited in this report (if any) were determined by the Surgical Pathology and Flow Cytometry Departments at [facility] as part of an ongoing quality tech program and in compliance with federally mandated [...] a high complexity laboratory under CLIA '88. ??The FDA has determined that such clearance or approval is not necessary. ??This test is used for clinical purposes. ??It should not be regarded as investigational or for research. ??Nevertheless, federal rules concerning the medical use of analyte specific reagents require that the following disclaimer be attached to the report: ??This test was developed and its performance characteristics determined by the Surgical Pathology and Flow Cytometry Departments of [facility]. ??It has not been cleared or approved by the U. S. Food and Drug Administration. Crystal Nation MD LAB CYTOLOGY ORDERABLES Final Re sult PATHOLOGY [facility] [address] Floor [place], [place] [phone] * Miscellaneous Test Sendout Chemistry (10/12/2023 12:04 PM CDT) Test name Treponema Pallidum Ab, IFA, CSF Result 1 See Comment [facility] Comment:Credited, test not i ndicated. CSF 10/12/2023 12:0 4 PM CDT 10/14/2023 1:48 PM CDT us Crystal Nation MD LAB BLOOD ORDERABLES Final Resul t [facility] [place] [address] * CT Temporal Bones WO Contrast (10/11/2023 8:24 PM CDT) Anatomical Region Laterality Modality Head and Neck N/A Computed Tomogra phy 10/12/2023 9:50 AM CDT Impressions 10/12/2023 11:51 AM CDT 1. ??Dehiscence of the bilateral sigmoid plates. 2. ??Otherwise, unremarkable CT temporal bones. Dictated by: Tj Hopper MD The radiology attending physician has personally reviewed this study, and had reviewed and/or edited this written report and agrees with it. Electronically signed by: Sheri Garcia M.D. Narrative 10/12/2023 11:51 AM CDT EXAMINATION: CT of the temporal bones without contrast HISTORY: HIV, syphilis, concern for hydrocephalus. TECHNIQUE: CT of the temporal bones was performed according to the standard protocol without intravenous contrast. COMPARISON: CT head 10/10/2023. FINDINGS: Mild mucosal thickening of the sphenoid sinuses. The limited examination of the brain is normal. The external auditory canals, including cartilaginous and bony portions, are normal. There is no fluid or mass in the middle ear cavities. The middle ear ossicles are intact, and there are no erosions. The sinus tympani and pyramids are normal. The facial nerves, including labyrinthine, geniculate, horizontal, and descending segments, are normal. The bony labyrinths including the cochlea, vestibule, and semicircular canals bilaterally are normal without evidence of dehiscence or congenital malformation. The bone is normal without evidence of otosclerosis. The internal auditory canals are normal. The vestibular aqueducts are normal. The cochlear aqueducts are normal. The mastoids are well developed without evidence of fluid or fracture. Dehiscence of the bilateral sigmoid plates. 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 TECHNIQUE: CT of the temporal bones was performed according to the standard protocol without intravenous contrast. COMPARISON: CT head 10/10/2023. FINDINGS: Mild mucosal thickening of the sphenoid sinuses. The limited examination of the brain is normal. The external auditory canals, including cartilaginous and bony portions, are normal. There is no fluid or mass in the middle ear cavities. The middle ear ossicles are intact, and there are no erosions. The sinus tympani and pyramids are normal. The facial nerves, including labyrinthine, geniculate, horizontal, and descending segments, are normal. The bony labyrinths including the cochlea, vestibule, and semicircular canals bilaterally are normal without evidence of dehiscence or congenital malformation. The bone is normal without evidence of otosclerosis. The internal auditory canals are normal. The vestibular aqueducts are normal. The cochlear aqueducts are normal. The mastoids are well developed without evidence of fluid or fracture. Dehiscence of the bilateral sigmoid plates. IMPRESSION: 1. Dehiscence of the bilateral sigmoid plates. 2. Otherwise, unremarkable CT temporal bones. Dictated by: Tj Hopper MD The radiology attending physician has personally reviewed this study, and had reviewed and/or edited this written report and agrees with it. Electronically signed by: Sheri Garcia M.D. Omkar Leonard MD IM CT PROCEDURES Final Result * N. gonorrhoeae/C. trachomatis Amplification Throat (10/11/2023 4:59 PM CDT) C. trachomatis Not Detected Not Detected [facility] N. gonorrhoeae Not Detected Not Detected [facility] Comment: Interpretive Data This assay detects Chlamydia trachomatis and Neisseria gonorrhoeae by nucleic acid amplification testing (NAAT). This assay has been cleared by the [place] Food and Drug administration. The performance characteristics of this test have been verified by the [facility] Molecular Infectious Disease laboratory. The performance characteristics of this test have not been evaluated in individuals less than 14 years of age. Current Interpretive Data last revised 2023. Throat (None) 10/11/2023 4:5 9 PM CDT 10/11/2023 5:18 PM CDT Joe Goodwin MD LAB MICROBIOLOGY - GENERAL ORDE RABLES Final Result Performing Organization Address City/[facility] Co de Phone Number [facility] Department [place] [address] [facility] * N. gonorrhoeae/C. trachomatis Amplification Rectal swab (10/11/2023 4:59 PM CDT) C. trachomatis Not Detected Not Detected [facility] N. gonorrhoeae Not Detected Not Detected [facility] Comment: Interpretive Data This assay detects Chlamydia trachomatis and Neisseria gonorrhoeae by nucleic acid amplification testing (NAAT). This assay has been cleared by the [place] Food and Drug administration. The performance characteristics of this test have been verified by the [facility] Molecular Infectious Disease laboratory. The performance characteristics of this test have not been evaluated in individuals less than 14 years of age. Current Interpretive Data last revised 2023. Rectal swab (None) 10/11/2023 4:59 PM CDT 10/11/2023 5:18 PM CDT Joe Goodwin MD LAB MICROBIOLOGY - GENERAL ORDE PARVIN Final Result Performing Organization Address [facility] Co de Phone Number [facility] Department [place] [address] [facility] * Hepatitis A antibody, IgM Blood (10/11/2023 3:42 PM CDT) Hep A IgM Nonreactive Nonreactive Blood 10/11/2023 3:42 PM CDT 10/11/2023 4:13 PM CDT Crystal Nation MD LAB MICROBIOLOGY - GENERAL ORDER ALOK Final Result Performing Organization Address City/[facility] Co de Phone Number [facility] Department [place] [address] * eGFR (10/11/2023 3:42 PM CDT) eGFR >90 >=60 mL/min/1. 73 [...] interpretive data was last reviewed 2021. Blood 10/11/2023 3:42 PM CDT 10/11/2023 4:13 PM CDT us Elkin Fisher MD LAB BLOOD ORDERABLES Final Re sult JOE [facility] [place] [address] * Differential, auto (10/11/2023 3:42 PM CDT) Neutrophil abs 1.6 1.5 - 6.5 K/cumm Imm gran abs 0.0 0.0 - 0.1 K/cumm [facility] Lymphocyte abs 2.0 0.8 - 3.3 K/cumm [facility] Monocyte abs 0.3 0.2 - 0.8 K/cumm [facility] Eosinophil abs 0.1 0.0 - 0.5 K/cumm [facility] Basophil abs 0.0 0.0 - 0.1 K/cumm [facility] Neutrophil pct 39.5 % [facility] Comment: Interpretive Data Percent cell count reference ranges are not reported, since discordance with absolute values may lead to misinterpretation of CBC data. Current Interpretive Data was last revised on 2017. Imm gran pct 0.0 % [facility] Comment: Interpretive Data Percent cell count reference ranges are not reported, since discordance with absolute values may lead to misinterpretation of CBC data. Current Interpretive Data was last revised on 2017. Lymphocyte pct 49.1 % [facility] Comment: Interpretive Data Percent cell count reference ranges are not reported, since discordance with absolute values may lead to misinterpretation of CBC data. Current Interpretive Data was last revised on 2017. Monocyte pct 8.3 % [facility] Comment: Interpretive Data Percent cell count reference ranges are not reported, since discordance with absolute values may lead to misinterpretation of CBC data. Current Interpretive Data was last revised on 2017. Eosinophil pct 2.3 % [facility] Comment: Interpretive Data Percent cell count reference ranges are not reported, since discordance with absolute values may lead to misinterpretation of CBC data. Current Interpretive Data was last revised on 2017. Basophil pct 0.8 % [facility] Comment: Interpretive Data Percent cell count reference ranges are not reported, since discordance with absolute values may lead to misinterpretation of CBC data. Current Interpretive Data was last revised on 2017. Blood 10/11/2023 3:42 PM CDT 10/11/2023 4:13 PM CDT us Elkin Fisher MD LAB BLOOD ORDERABLES Final Re sult [facility] [place] [address] * (ABNORMAL) Hepatitis A antibody, total Blood (10/11/2023 3:42 PM CDT) Pathologist [facility] Hep A total Reactive(A ) Nonreactive Blood 10/11/2023 3:42 PM CDT 10/11/2023 4:13 PM CDT Joe Goodwin MD LAB MICROBIOLOGY - GENERAL [place] [address] * Hepatitis B surface antibody (immune status) Blood (10/11/2023 3:42 PM CDT) Pathologist [facility] HBsAb (immune status) Nonreactive Comment:This result is consi stent with a lack of immunity to Hepatitis B Virus when used in the setting of routine screening. Current interpretative data was last revised on 22 Blood 10/11/2023 3:42 PM CDT 10/11/2023 4:13 PM CDT Joe Goodwin MD LAB MICROBIOLOGY - GENERAL ORDE RABLES Final Result Performing Organization Address City/[facility]/ZIP Co de Phone Number [facility] [place] [address] * Hepatitis B Surface Antigen Blood (10/11/2023 3:42 PM CDT) Pathologist [facility] HepBsAg Nonreactive Nonreactive Blood 10/11/2023 3:42 PM CDT 10/11/2023 4:13 PM CDT us Joe Goodwin MD LAB MICROBIOLOGY - GENERAL ORDE RABLES Final Result [facility] [place] [address] * Hepatitis B core antibody, total Blood (10/11/2023 3:42 PM CDT) [facility] Hep B core IgG/IgM Nonreactive Nonreactive Blood 10/11/2023 3:42 PM CDT 10/11/2023 4:13 PM CDT Joe Goodwin MD LAB MICROBIOLOGY - GENERAL [facility] PARVIN Final Result Performing Organization Address City/[facility] Co de Phone Number [facility] Department [place] [address] * Hepatitis C antibody Blood (10/11/2023 3:42 PM CDT) [facility] Hep C Ab Nonreactive Nonreactive Comment:Antibodies to HCV no t detected. Does NOT exclude the possibility of recent exposure to HCV. Current interpretive data was last revised on 22 Blood 10/11/2023 3:42 PM CDT 10/11/2023 4:13 PM CDT Joe Goodwin MD [facility] MICROBIOLOGY - GENERAL [place] FALL[place]enise MELENDREZ Final Result Performing Organization Address [facility] de Phone Number [facility] [place] [address] * Comprehensive metabolic panel (10/11/2023 3:42 PM CDT) [facility] Sodium 142 135 - 145 mmol/L Potassium, pl 4.3 3.3 - 4.9 mmol/L [facility] Chloride 107 97 - 110 mmol/L [facility] CO2 27 22 - 32 mmol/L [facility] Anion gap 8 2 - 15 mmol/L [facility] BUN 10 6 - 25 mg/dL [facility] Creatinine 1.08 0.80 - 1.30 mg/dL [facility] Glucose 82 70 - 199 mg/dL [facility] [...] 2022. Calcium 9.3 8.5 - 10.3 mg/dL [facility] Bilirubin, total 0.3 0.1 - 1.2 mg/dL [facility] Protein, pl 8.2 6.5 - 8.5 g/dL [facility] Albumin 4.2 3.5 - 5.0 g/dL [facility] Alk phos 92 40 - 130 Units/L [facility] ALT 19 7 - 55 Units/L [facility] AST 31 10 - 50 Units/L [facility] Blood 10/11/2023 3:42 PM CDT 10/11/2023 4:13 PM CDT us Elkin Fisher MD LAB BLOOD ORDERABLES Final Re sult [facility] Department [place] [address] * (ABNORMAL) CBC with auto differential (10/11/2023 3:42 PM CDT) Pathologist [facility] WBC 4.0 3.8 - 9.9 K/cumm Hgb 14.9 13.0 - 17.5 g/dL [facility] Hct 45.6 38.9 - 50.3 % [facility] Plt 285 150 - 400 K/cumm [facility] MPV 9.4 9.1 - 12.3 fL [facility] RBC 5.71 4.30 - 5.80 M/cumm [facility] MCV 79.9(L) 81.3 - 96.4 fL [facility] MCH 26.1(L) 27.1 - 33.3 pg [facility] MCHC 32.7 32.3 - 35.7 g/dL [facility] RDW CV 16.0(H) 11.1 - 14.9 % [facility] RDW SD 45.6 35.7 - 48.1 fL [facility] NRBC abs 0.00 0.00 - 0.01 K/cumm [facility] Blood 10/11/2023 3:42 PM CDT 10/11/2023 4:13 PM CDT Elkin Fisher MD LAB BLOOD ORDERABLES Final Re sult Performing Organization Address [facility] de Phone Number [facility] [place] [address] * Protime-INR (10/11/2023 9:46 AM CDT) Pathologist [facility] PT 11.1 10.3 - 13.7 sec INR 0.97 0.90 - 1.20 [facility] Comment: Interpretive data Oral anticoagulant therapeutic ranges: Venous thromboembolism prophylaxis or treatment: 2.0-3.0 CARDIOLOGY Standard range: 2.0-3.0 High-intensity range: 2.5-3.5 Refer to indication-specific guidelines for appropriate target ranges for prosthetic heart valve replacement. Current interpretive data was last revised on 2019. Blood 10/11/2023 9:46 AM CDT 10/11/2023 9:55 AM CDT Result [facility] Omkar Leonard MD LAB BLOOD ORDERABLES Final Resu lt Performing Organization Address [facility] Co de Phone Number [facility] [place] [address] * HIV-1 RNA PCR, quantitative Blood (10/11/2023 8:24 AM CDT) [facility] HIV-1 RNA Not Detected [facility] Comment: The quantifiable range of this assay is 20 copies/mL to 10,000,000 copies/mL (1.30 log copies/mL to 7.00 log copies/mL). ??Testing was performed by the [employer] COTA0 HIV-1 Test([employer] Testing performed at [facility] Current Interpretive Data was last revised on 2021. Blood 10/11/2023 8:24 AM CDT 10/11/2023 9:37 AM CDT us Omkar Leonard MD LAB MICROBIOLOGY - GENERAL ORDE [facility] Final Result Performing Organization Address City/[facility] Co de Phone Number [facility] [place] [address] [facility] * (ABNORMAL) T-helper cells (CD4) count (10/11/2023 8:24 AM CDT) CD4 pct 13(L) 31 - 64 % CD4 Absolute 237(L) 365 - 1,294 cells/mcL [facility] Blood 10/11/2023 8:24 AM CDT 10/11/2023 8:42 AM CDT us Omkar Leonard MD LAB BLOOD ORDERABLES Final Resu lt Performing Organization Address [facility] Co de Phone Number [facility] [place] [address] * (ABNORMAL) T-helper cells (CD4) count (10/11/2023 7:33 AM CDT) CD4 pct 13(L) 31 - 64 % CD4 Absolute 225(L) 365 - 1,294 cells/mcL [facility] Blood 10/11/2023 7:33 AM CDT 10/11/2023 7:42 AM CDT us Braden Lucero MD LAB BLOOD ORDERABLES F inal Result Performing Organization Address City/[facility] Co de Phone Number [facility] [place] [address] * CT Head WO Contrast (10/10/2023 9:48 PM CDT) Anatomical Region Laterality Modality Head and Neck N/A Computed Tomogra phy 10/10/2023 10:1 7 PM CDT Impressions 10/11/2023 8:03 AM CDT 1. ??No acute intracranial hemorrhage, hydrocephalus, or herniation. 2. ??Cerebral atrophy with associated ex vacuo dilatation of the ventricles which has progressed significantly from 2018, greater than expected for age. ??Nonspecific hypoattenuation in the periventricular white matter. Dictated by: Salvatore Sandoval M.D. The radiology attending physician has personally reviewed this study, and had reviewed and/or edited this written report and agrees with it. Electronically signed by: Sheri Garcia M.D. 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 COMPARISON: None Available. FINDINGS: Topogram demonstrates no lytic lesions or fractures. There is no acute intracranial hemorrhage. ??There is cerebral atrophy greater than expected for age which has significantly progressed from 2018. Hypoattenuation the periventricular white matter is nonspecific. No mass effect or midline shift is present. The hobbs-white matter differentiation is normal. The visualized portions of the orbits are normal. The visualized portions of the mastoids are normal. Mild paranasal sinus disease No fractures are identified. 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 IMPRESSION: 1. No acute intracranial hemorrhage, hydrocephalus, or [...] it. Electronically signed by: Sheri Garcia M.D. us Calvin Cabrales MD IM CT PROCEDURES Final Res ult * MRI Spine Thoracic and Lumbar W WO Contrast (10/10/2023 6:59 PM CDT) Anatomical Region Laterality Modality Spine N/A Magnetic Resonan ce 10/10/2023 8:10 PM CDT Impressions 10/11/2023 12:01 PM CDT 1. ??No abnormal enhancement in the thoracic and lumbar spine. ??No significant degenerative changes of the thoracic spine. ??Minimal degenerative changes of the lumbar spine without high-grade neuroforaminal or spinal canal stenosis. 2. ??T2 hyperintense enhancing lesion in the liver dome may represent a cavernous hemangioma but is incompletely evaluated on this examination. ??Consider further evaluation with dedicated liver protocol cross-sectional imaging if clinically indicated. Dictated by: David Chin MD The radiology attending physician has personally reviewed this study, and had reviewed and/or edited this written report and agrees with it. Electronically signed by: Sheri Garcia M.D. Narrative 10/11/2023 12:01 PM CDT EXAMINATION: 1. Magnetic resonance imaging (MRI) of the thoracic spine without and with contrast 2. Magnetic resonance imaging (MRI) of the lumbar spine without and with contrast HISTORY: 28-year-old male with HIV. ??Lower back pain and right lower extremity weakness/numbness. TECHNIQUE: Multiplanar multi-weighted MRI of the thoracic was performed without and with intravenous contrast using the standard protocol. Multiplanar multi-weighted MRI of the lumbar spine was performed without and with intravenous contrast using the standard protocol. Contrast information: 16 mL Gadoterate Meglumine COMPARISON: None Available. FINDINGS: THORACIC SPINE: The alignment of the thoracic spine is normal. Vertebral bodies demonstrate normal signal intensity on all sequences. There are no compression fractures. The spinal cord demonstrates normal signal intensity on all sequences. Intervertebral disks have normal height and signal intensity. Limited views of the chest and abdomen show no soft tissue abnormality. T2 hyperintense lesion in the right liver which demonstrates postcontrast enhancement. The disks are normal in configuration. There is no facet arthropathy. There is no neuroforaminal stenosis. There is no spinal canal stenosis. LUMBAR SPINE: The alignment of the lumbar spine is normal. Vertebral bodies demonstrate normal signal intensity on all sequences. There are no compression fractures. The conus medullaris terminates at the level of L2. The distal spinal cord signal intensity is normal. Intervertebral disks have normal height and signal intensity. There are no annular fissures identified. Limited views of the abdomen and pelvis show no soft tissue abnormality. The aorta is normal. There is no abnormal contrast enhancement. L1-L2: The disc is normal in configuration. There is no facet arthropathy. There is no neuroforaminal stenosis. There is no spinal canal stenosis. L2-L3: The disc is normal in configuration. There is no facet arthropathy. There is no neuroforaminal stenosis. There is no spinal canal stenosis. L3-L4: Minimal disc bulge. There is no facet arthropathy. There is no neuroforaminal stenosis. There is no spinal canal stenosis. L4-L5: Mild disc bulge There is no facet arthropathy. There is mild left neuroforaminal stenosis. There is no spinal canal stenosis. L5-S1: Mild disc bulge. There is no facet arthropathy. There is mild right neuroforaminal stenosis. There is no spinal canal stenosis. Procedure Note VoSheri MD - 10/11/2023 EXAMINATION: 1. Magnetic resonance imaging (MRI) of the thoracic spine without and with contrast 2. Magnetic resonance imaging (MRI) of the lumbar spine without and with contrast HISTORY: 28-year-old male with HIV. Lower back pain and right lower extremity weakness/numbness. TECHNIQUE: Multiplanar multi-weighted MRI of the thoracic was performed without and with intravenous contrast using the standard protocol. Multiplanar multi-weighted MRI of the lumbar spine was performed without and with intravenous contrast using the standard protocol. Contrast information: 16 mL Gadoterate Meglumine COMPARISON: None Available. FINDINGS: THORACIC SPINE: The alignment of the thoracic spine is normal. Vertebral bodies demonstrate normal signal intensity on all sequences. There are no compression fractures. The spinal cord demonstrates normal signal intensity on all sequences. Intervertebral disks have normal height and signal intensity. Limited views of the chest and abdomen show no soft tissue abnormality. T2 hyperintense lesion in the right liver which demonstrates postcontrast enhancement. The disks are normal in configuration. There is no facet arthropathy. There is no neuroforaminal stenosis. There is no spinal canal stenosis. LUMBAR SPINE: The alignment of the lumbar spine is normal. Vertebral bodies demonstrate normal signal intensity on all sequences. There are no compression fractures. The conus medullaris terminates at the level of L2. The distal spinal cord signal intensity is normal. Intervertebral disks have normal height and signal intensity. There are no annular fissures identified. Limited views of the abdomen and pelvis show no soft tissue abnormality. The aorta is normal. There is no abnormal contrast enhancement. L1-L2: The disc is normal in configuration. There is no facet arthropathy. There is no neuroforaminal stenosis. There is no spinal canal stenosis. L2-L3: The disc is normal in configuration. There is no facet arthropathy. There is no neuroforaminal stenosis. There is no spinal canal stenosis. L3-L4: Minimal disc bulge. There is no facet arthropathy. There is no neuroforaminal stenosis. There is no spinal canal stenosis. L4-L5: Mild disc bulge There is no facet arthropathy. There is mild left neuroforaminal stenosis. There is no spinal canal stenosis. L5-S1: Mild disc bulge. There is no facet arthropathy. There is mild right neuroforaminal stenosis. There is no spinal canal stenosis. IMPRESSION: 1. No abnormal enhancement in the thoracic and lumbar spine. No significant degenerative changes of the thoracic spine. Minimal degenerative changes of the lumbar spine without high-grade neuroforaminal or spinal canal stenosis. 2. T2 hyperintense enhancing lesion in the liver dome may represent a cavernous hemangioma but is incompletely evaluated on this examination. Consider further evaluation with dedicated liver protocol cross-sectional imaging if clinically indicated. Dictated by: David Chin MD The radiology attending physician has personally reviewed this study, and had reviewed and/or edited this written report and agrees with it. Electronically signed by: Sheri Garcia M.D. Martha Gill MD IMG MRI PROCEDURES Final Result * (ABNORMAL) RPR Titer Blood (10/10/2023 2:27 PM CDT) [facility] RPR qn 1:128(A) Nonreactive Blood 10/10/2023 2:27 PM CDT 10/10/2023 3:03 PM CDT Martha Gill MD LAB MICROBIOLOGY - GENER AL ORDERABLES Final Result Performing Organization Address [facility] Co de Phone Number [facility] Department [place] [address] * (ABNORMAL) RPR Blood (10/10/2023 2:27 PM CDT) [facility] RP Reactive(A ) Nonreactive Blood 10/10/2023 2:27 PM CDT 10/10/2023 3:03 PM CDT Martha Gill MD LAB MICROBIOLOGY - GENER AL ORDERABLES Final Result Performing Organization Address [facility] de Phone Number [facility] [place] [address] * (ABNORMAL) Drugs of Abuse Screen, Urine without Confirmation (10/10/2023 1:46 PM CDT) [facility] Amphetamine, ur Screen Positive, presumptive (A) CutOff [...] Barbiturates, ur Not Detected CutOff 200ng/mL [facility] Comment: Interpretive Data - Barbiturates: ??Samples containing greater than 200 ng/mL secobarbital or other cross-reacting barbiturate compounds are reported as positive. ??False positive and false negative results are possible. Confirmatory testing required for definitive results. Current Interpretive Data was last reviewed 2023. Benzodiazepines, ur Not Detected CutOff 100ng/mL [facility] Comment: Interpretive Data - Benzodiazepines: ??Samples containing [...] last reviewed 2023. Fentanyl, Ur Not Detected Cutoff 1 ng/mL [facility] Comment: Interpretive Data - Fentanyl: ??Samples containing greater than 1 ng/mL fentanyl or other cross-reacting fentanyl compounds are reported as positive. ??False positive [...] 2023. Oxycodone, ur Not Detected CutOff 100ng/mL [facility] Comment: Interpretive Data - Oxycodone: ??Samples containing greater than 100 ng/mL oxycodone or other cross-reacting compounds are reported as ??positive. ??False positive and false negative results are possible. Confirmatory testing required for definitive results. Current Interpretive Data was last reviewed 2023. Phencyclidine, ur Not Detected CutOff 25 ng/mL [facility] Comment: Interpretive Data - Phencyclidine: ??Samples containing greater than 25 ng/mL phencyclidine or other cross-reacting compounds are reported as positive. ??False positive and false negative results are possible. Confirmatory testing required for definitive results. Current Interpretive Data was last reviewed 2023. Urine Creatinine 352 mg/dL [facility] Comment: Interpretive Data Urine Creatinine: < 10 mg/dL is extremely dilute = or > 10 but < 20 mg/dL is dilute = or > 20 mg/dL is normal Current Interpretive Data was last revised on 2017. Urine 10/10/2023 1:46 PM CDT 10/10/2023 1:50 PM CDT Narrative [facility] - 10/10/2023 2:58 PM CDT Drug of Abuse screening is performed by immunoassay for medical purposes only. ??This is not to be used for Pain Management purposes. Martha Gill MD LAB URINE ORDERABLES Fin al Result [facility] Department of Laboratories [place], [place] [id number] * (ABNORMAL) Urinalysis reflex to microscopic and culture Urine (10/10/2023 1:46 PM CDT) Color, ur Yellow Yellow Clarity, ur Clear Clear [facility] Specific gravity, ur 1.034(H) 1.003 - 1.030 [facility] pH, urine 6.0 [facility] Comment: Interpretive Data ? Urine pH is affected by diet, medications, systemic acid-base disturbances, and renal tubular function. ??pH may affect urinary stone formation. ??For example, urine pH below 6.0 may help reduce the tendency for calcium phosphate stones and pH greater than 6.0 may reduce the tendency for uric acid stone formation. Source: [facility] Current Interpretive Data was last revised on 2017 Protein, ur ql Trace Negative [facility] Glucose, ur ql Negative Negative [facility] Ketones, ur Negative Negative [facility] Bilirubin, ur Negative Negative [facility] Blood, ur Negative Negative [facility] Urobilinogen, ur 2.0(A) <2.0 mg/dL [facility] Nitrite, ur Negative Negative [facility] Leukocyte esterase, ur Negative Negative [facility] UA reflex comment Reflex conditions for microscopic UA and culture not met. [facility] Urine 10/10/2023 1:46 PM CDT 10/10/2023 1:50 PM CDT Martha Gill MD LAB MICROBIOLOGY - GENER AL ORDERABLES Final Result Performing Organization Address [facility]/ZIP Co de Phone Number [facility] Department [place] [address] * Erythrocyte sedimentation rate (10/10/2023 11:27 AM CDT) Erythrocyte sedimentation rate 12 1 - 15 mm/hr Blood 10/10/2023 11:2 7 AM CDT 10/10/2023 11:44 AM CDT us Carlos Conte MD LAB BLOOD ORDERABLES Antonina l Result [facility] [place] [address] * CRP (acute phase) (10/10/2023 11:27 AM CDT) CRP 2.1 <=10.0 mg/L Blood 10/10/2023 11:2 7 AM CDT 10/10/2023 11:40 AM CDT us Carlos Conte MD LAB BLOOD ORDERABLES Antonina l Result Performing Organization Address [facility] de Phone Number [facility] Department [place] [address] * eGFR (10/10/2023 11:27 AM CDT) eGFR >90 >=60 mL/min/1. 73 [...] interpretive data was last reviewed 2021. Blood 10/10/2023 11:2 7 AM CDT 10/10/2023 11:40 AM CDT us Martha Gill MD LAB BLOOD ORDERABLES Fin al Result Performing Organization Address [facility] Co de Phone Number [facility] Department [place] [address] * Differential, auto (10/10/2023 11:27 AM CDT) Neutrophil abs 1.5 1.5 - 6.5 K/cumm Imm gran abs 0.0 0.0 - 0.1 K/cumm [facility] Lymphocyte abs 1.7 0.8 - 3.3 K/cumm [facility] Monocyte abs 0.5 0.2 - 0.8 K/cumm [facility] Eosinophil abs 0.1 0.0 - 0.5 K/cumm [facility] Basophil abs 0.0 0.0 - 0.1 K/cumm [facility] Neutrophil pct 39.8 % [facility] Comment: Interpretive Data Percent cell count reference ranges are not reported, since discordance with absolute values may lead to misinterpretation of CBC data. Current Interpretive Data was last revised on 2017. Imm gran pct 0.3 % [facility] Comment: Interpretive Data Percent cell count reference ranges are not reported, since discordance with absolute values may lead to misinterpretation of CBC data. Current Interpretive Data was last revised on 2017. Lymphocyte pct 44.9 % [facility] Comment: Interpretive Data Percent cell count reference ranges are not reported, since discordance with absolute values may lead to misinterpretation of CBC data. Current Interpretive Data was last revised on 2017. Monocyte pct 12.3 % [facility] Comment: Interpretive Data Percent cell count reference ranges are not reported, since discordance with absolute values may lead to misinterpretation of CBC data. Current Interpretive Data was last revised on 2017. Eosinophil pct 1.9 % [facility] Comment: Interpretive Data Percent cell count reference ranges are not reported, since discordance with absolute values may lead to misinterpretation of CBC data. Current Interpretive Data was last revised on 2017. Basophil pct 0.8 % [facility] Comment: Interpretive Data Percent cell count reference ranges are not reported, since discordance with absolute values may lead to misinterpretation of CBC data. Current Interpretive Data was last revised on 2017. Blood 10/10/2023 11:2 7 AM CDT 10/10/2023 11:40 AM CDT Martha Gill MD LAB BLOOD ORDERABLES Fin al Result Performing Organization Address [facility] Co de Phone Number [facility] [place] [address] * Ethanol (10/10/2023 11:27 AM CDT) Ethanol <10 <=10 mg/dL Comment: Interpretive Data Legal limit of intoxication > or = 80 mg/dL Levels > or = 400 mg/dL are potentially TOXIC. Current interpretive data was last revised on 2018. Blood 10/10/2023 11:2 7 AM CDT 10/10/2023 11:40 AM CDT us Martha Gill MD LAB BLOOD ORDERABLES Fin al Result Performing Organization Address [facility] de Phone Number [facility] [place] [address] * Thyroid Function Mellette (10/10/2023 11:27 AM CDT) TSH 1.18 0.30 - 4.20 mcIUnit/mL Blood 10/10/2023 11:2 7 AM CDT 10/10/2023 11:40 AM CDT Martha Gill MD LAB BLOOD ORDERABLES Fin al Result Performing Organization Address [facility] Co de Phone Number [facility] [place] [address] * (ABNORMAL) Comprehensive metabolic panel (10/10/2023 11:27 AM CDT) Sodium 140 135 - 145 mmol/L Potassium, pl 4.3 3.3 - 4.9 mmol/L [facility] Chloride 104 97 - 110 mmol/L [facility] CO2 27 22 - 32 mmol/L [facility] Anion gap 9 2 - 15 mmol/L [facility] BUN 11 6 - 25 mg/dL [facility] Creatinine 1.06 0.80 - 1.30 mg/dL [facility] Glucose 78 70 - 199 mg/dL [facility] [...] 2022. Calcium 9.5 8.5 - 10.3 mg/dL [facility] Bilirubin, total 0.4 0.1 - 1.2 mg/dL [facility] Protein, pl 9.3(H) 6.5 - 8.5 g/dL [facility] Albumin 4.2 3.5 - 5.0 g/dL [facility] Alk phos 101 40 - 130 Units/L [facility] ALT 27 7 - 55 Units/L [facility] AST 40 10 - 50 Units/L [facility] Blood 10/10/2023 11:2 7 AM CDT 10/10/2023 11:40 AM CDT us Martha Gill MD LAB BLOOD ORDERABLES Fin al Result [facility] Department [place] [address] * (ABNORMAL) CBC with auto differential (10/10/2023 11:27 AM CDT) WBC 3.7(L) 3.8 - 9.9 K/cumm Hgb 14.9 13.0 - 17.5 g/dL [facility] Hct 45.3 38.9 - 50.3 % [facility] Plt 324 150 - 400 K/cumm [facility] MPV 9.9 9.1 - 12.3 fL [facility] RBC 5.77 4.30 - 5.80 M/cumm [facility] MCV 78.5(L) 81.3 - 96.4 fL [facility] MCH 25.8(L) 27.1 - 33.3 pg [facility] MCHC 32.9 32.3 - 35.7 g/dL [facility] RDW CV 16.2(H) 11.1 - 14.9 % [facility] RDW SD 45.1 35.7 - 48.1 fL [facility] NRBC abs 0.00 0.00 - 0.01 K/cumm [facility] Blood 10/10/2023 11:2 7 AM CDT 10/10/2023 11:40 AM CDT us Martha Gill MD LAB BLOOD ORDERABLES Fin al Result [facility] Department [place] [address] documented in this encounter Visit Diagnoses Diagnosis Syphilis- Primary Unspecified syphilis Suicidal ideation Syphilis Unspecified syphilis PTSD (post-traumatic stress disorder) Posttraumatic stress disorder Borderline personality disorder (CMS/HCC) (HCC) Borderline personality disorder 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 Suicidal ideation Vertigo Dizziness and giddiness PTSD (post-traumatic stress disorder) Posttraumatic stress disorder Borderline personality disorder (CMS/HCC) (HCC) Borderline personality disorder HIV disease (CMS/HCC) (HCC) Human immunodeficiency virus [HIV] disease IVDU (intravenous drug user) Other, mixed, or unspecified nondependent drug abuse, unspecified documented in this encounter Admitting Diagnoses Diagnosis Suicidal ideation Syphilis Unspecified syphilis documented in this encounter Administered Medications Inactive Administered Medications - up to 3 most recent administrations Medication Order MAR Action Action Date Dose Rate Site ARIPiprazole (ABILIFY) tablet 5 mg 5 mg, oral, Daily, First dose on Sun10/11/23 at 0900, Indications: Depression Treatment AdjunctIndications:Depression Treatment Adjunct Given 10/26/2023 7:43 AM CDT 5 mg Given 10/25/2023 8:10 AM CDT 5 mg Given 10/24/2023 10:03 AM CDT 5 mg lzuoppmjnvb-epwcfgbstexqj-bmnlebugt (BIKTARVY) 50-200-25 mg per tablet 1 tablet 1 tablet, oral, Daily, First dose on Sun10/11/23 at 0900, May be dissolved in 240 mL of water. Give 2 hrs before or 6 hrs after MVI, antacids, or other products containing sucralfate, magnesium, aluminum, iron, or zinc., Indications: HIV infectionIndications:HIV infection Given 10/26/2023 7:44 AM CDT 1 tablet Given 10/25/2023 8:10 AM CDT 1 tablet Given 10/24/2023 10:03 AM CDT 1 tablet bisacodyL (DULCOLAX) suppository 10 mg 10 mg, rectal, Once, On Sun10/16/23 at 1115, For 1 dose, Indications: constipationIndications:constipation Given 10/16/2023 2:11 PM CDT 10 mg bisacodyL (DULCOLAX) suppository 10 mg 10 mg, rectal, Once, On Sun10/19/23 at 0930, For 1 dose, Indications: constipationIndications:constipation Given 10/19/2023 9:06 AM CDT 10 mg docusate sodium (COLACE) capsule 100 mg 100 mg, oral, Daily, First dose on Sun10/15/23 at 0900, Indications: constipationIndications:constipation Given 10/16/2023 8:14 AM CDT 100 mg Given 10/15/2023 9:00 AM CDT 100 mg doxepin (SINEquan) capsule 10 mg 10 mg, oral, Nightly, First dose (after last modification) on Sun10/14/23 at 2100, Indications: depressionIndications:depression Given 10/25/2023 8:2 9 PM CDT 10 mg Given 10/24/2023 8:14 PM CDT 10 mg Given 10/23/2023 8:28 PM CDT 10 mg doxepin (SINEquan) capsule 20 mg 20 mg, oral, Nightly, First dose (after last modification) on Sun10/12/23 at 2100, Indications: depressionIndications:depression Given 10/13/2023 9:0 5 PM CDT 20 mg Given 10/12/2023 8:57 PM CDT 20 mg doxepin (SINEquan) capsule 25 mg 25 mg, oral, Nightly, First dose on Lara 10/11/23 at 2100, Indications: depressionIndications:depression Given 10/11/2023 8:05 PM CDT [address] (CYMBALTA) extended release capsule 30 mg 30 mg, oral, Daily, First dose on Sun10/12/23 at 0900, Capsule may be opened and contents mixed with applesauce or apple juice ONLY. Do not crush, chew, cut, dissolve, open or otherwise manipulate tablet/capsule. Given 10/14/2023 9:15 AM CDT 30 mg Given 10/13/2023 10:11 AM CDT 30 mg Given 10/12/2023 8:39 AM CDT [address] (CYMBALTA) extended release capsule 60 mg 60 mg, oral, Daily, First dose (after last modification) on Sun10/15/23 at 0900, Capsule may be opened and contents mixed with applesauce or apple juice ONLY. Do not crush, chew, cut, dissolve, open or otherwise manipulate tablet/capsule. Given 10/26/2023 7:43 AM CDT 60 mg Given 10/25/2023 8:10 AM CDT 60 mg Given 10/24/2023 10:03 AM CDT 60 mg enoxaparin (LOVENOX) syringe 40 mg 40 mg, subcutaneous, Daily (for enoxaparin), First dose on Sun10/14/23 at 2100, Indications: Deep Vein Thrombosis PreventionIndications:Deep Vein Thrombosis Prevention Given 10/24/2023 8:15 PM CDT 40 mg Left Lower Abdomen Given 10/23/2023 8:28 PM CDT 40 mg Le ft Lower Abdomen Given 10/22/2023 9:07 PM CDT 40 mg Le ft Upper Abdomen gadoterate meglumine injection 16 mL 16 mL, intravenous, Once in imaging, contrast, Starting on Sun10/10/23 at 1859, For 1 dose Contrast Given 10/10/2023 7:00 PM CDT 16 mL gadoterate meglumine injection 16 mL 16 mL, intravenous, Once in imaging, contrast, Starting on 10/13/23 at 0919, For 1 dose Contrast Given 10/13/2023 9:21 AM CDT 16 mL lidocaine (PF) (XYLOCAINE) 10 mg/mL (1 %) preservative free injection As needed, Starting on Sun10/12/23 at 1227, Intra-Procedure (IR), Indications: Administration of Local AnesthesiaIndications:Adminis tration of Local Anesthesia Given 10/12/2023 12:27 PM CDT 5 mL Back ondansetron (ZOFRAN) injection 4 mg 4 mg, intravenous, Administer over 2 Minutes, Every 4 hours PRN, nausea, Starting on Sun10/12/23 at 0725 Given 10/12/2023 7:40 AM CDT 4 mg penicillin G potassium 4 million units/40 mL in sterile water (premix) 4 Million Units 4 Million Units, intravenous, Administer over 30 Minutes, Every 4 hours scheduled, First dose on Lara 10/11/23 at 1600, Indications: c/f neurosyphilisIndications:c/f neurosyphilis New Bag 10/19/2023 8:09 AM CDT 4 Million Units New Bag 10/19/2023 5:11 AM CDT 4 Million Units New Bag 10/19/2023 1:35 AM CDT 4 Million Units penicillin G potassium 4 million units/40 mL in sterile water (premix) 4 Million Units 4 Million Units, intravenous, Administer over 30 Minutes, Every 4 hours scheduled, First dose (after last modification) on Sun10/19/23 at 1300, For 32 doses, Indications: c/f neurosyphilisIndications:c/f neurosyphilis New Bag 10/24/2023 5:10 PM CDT 4 Million Units New Bag 10/24/2023 1:11 PM CDT 4 Million Units New Bag 10/24/2023 10:03 AM CDT 4 Million Units polyethylene glycol (MIRALAX) packet 17 g 17 g, oral, Daily, First dose on Sun10/15/23 at 0900, Indications: constipationIndications:constipation Given 10/19/2023 8:09 AM CDT 17 g Given 10/18/2023 5:48 PM CDT 17 g Given 10/16/2023 8:13 AM CDT 17 g polyethylene glycol (MIRALAX) packet 17 g 17 g, oral, Daily PRN, constipation, 1st line, Starting on Sun10/20/23 at 0845, Indications: constipationIndications:constipation ramelteon (ROZEREM) tablet 8 mg 8 mg, oral, Nightly PRN, sleep, Starting on Sun10/23/23 at 1143, Indications: Sleep-Onset InsomniaIndications:Sleep-Onset Insomnia Given 10/25/2023 8:29 PM CDT 8 m g Given 10/24/2023 8:19 PM CDT 8 mg senna-docusate (PERICOLACE) 8.6-50 mg per tablet 1 tablet 1 tablet, oral, 2 times daily, First dose on Sun10/16/23 at 1115 Given 10/19/2023 8:09 AM CDT 1 tablet Given 10/18/2023 8:00 PM CDT 1 tablet Given 10/18/2023 9:14 AM CDT 1 tablet senna-docusate (PERICOLACE) 8.6-50 mg per tablet 1 tablet 1 tablet, oral, 2 times daily PRN, constipation, 2nd line, Starting on Sun10/20/23 at 0845 sertraline (ZOLOFT) tablet 100 mg 100 mg, oral, Daily, First dose on Sun10/11/23 at 0900, Indications: Anxiety with Depression, depressionIndications:Anxiety with Depression,depression Given 10/14/2023 9:15 AM CDT 100 mg Given 10/13/2023 10:11 AM CDT 100 mg Given 10/12/2023 8:39 AM CDT 100 mg sertraline (ZOLOFT) tablet 50 mg 50 mg, oral, Daily, First dose (after last modification) on Sun10/15/23 at 0900, Indications: Anxiety with Depression, depressionIndications:Anxiety with Depression,depression Given 10/16/2023 8:14 AM CDT 50 mg Given 10/15/2023 8:54 AM CDT 50 mg simethicone (MYLICON) chewable tablet 80 mg 80 mg, oral, Once, On Sun10/23/23 at 1215, For 1 dose Given 10/23/2023 2:52 PM CDT 80 mg sodium chloride 0.9% 0.9% infusion - ADS Override Pull Starting on Sun10/16/23 at 0825, For 1 dose, Created by cabinet override New Bag 10/16/2023 9:30 AM CDT 250 mL sodium chloride 0.9% flush 5-10 mL 5-10 mL, intra-catheter, Every 12 hours scheduled, First dose on Sun10/17/23 at 1445, Flush volume based on line type, size, and protocol. Given 10/25/2023 8:12 AM CDT 10 mL Given 10/24/2023 8:14 PM CDT 10 mL Given 10/23/2023 8:28 PM CDT 10 mL traZODone (DESYREL) tablet 25 mg 25 mg, oral, Nightly PRN, sleep, Starting on Sun10/17/23 at 1413, Indications: insomnia associated with depressionIndications:insomnia associated with depression Given 10/22/2023 9:12 PM CDT 25 mg Given 10/21/2023 9:36 PM CDT 25 mg Given 10/20/2023 8:55 PM CDT 25 mg traZODone (DESYREL) tablet 50 mg 50 mg, oral, Nightly PRN, sleep, Starting on Sun10/11/23 at 0858, Indications: insomnia associated with depressionIndications:insomnia associated with depression Given 10/16/2023 8:04 PM CDT 50 mg Given 10/15/2023 8:58 PM CDT 50 mg documented in this encounter Discontinued Medications Medication Sig Discontinue Reason Start Date End Da te ARIPiprazole (ABILIFY) 5 mg tabletIndications:Depr ession Treatment Adjunct Take 1 tablet (5 mg total) by mouth daily 10/05/2023 10/25/2023 bictegravir-emtricitab ine-tenofovir (BIKTARVY) 50-200-25 mg tabletIndications:HIV infection Take 1 tablet by mouth daily 10/05/2023 10/25/2023 doxepin (SINEquan) 25 mg capsuleIndications:dep ression Take 1 capsule (25 mg total) by mouth nightly 10/04/2023 10/25/2023 hydrOXYzine (ATARAX) 25 mg tabletIndications:anxi ety Take 1 tablet (25 mg total) by mouth every 4 (four) hours as needed for anxiety 10/04/2023 10/25/2023 traZODone (DESYREL) 50 mg tabletIndications:inso mnia associated with depression Take 1 tablet (50 mg total) by mouth nightly as needed for sleep Stop Taking at Discharge 10/04/2023 10/26/2023 sertraline (ZOLOFT) 100 mg tabletIndications:Anxi ety with Depression,depression Take 1 tablet (100 mg total) by mouth daily Stop Taking at Discharge 10/05/2023 10/26/2023 documented as of this encounter Active and Recently Administered Medications Times are shown in CDT. Scheduled Medication Order 10/24/2023 10/25/2023 10/26/2023 ARIPiprazole (ABILIFY) tablet 5 mg 5 mg, oral, Daily, First dose on Sun10/11/23 at 0900, Indications: Depression Treatment Adjunct 1003 (Given - Provider: Donya Johnson RN) 0810 (Given - Provider: Caitlyn Palacios RN) 0743 (Given - Provider: Caitlyn Palacios RN) bictegravir-emtricitabin e-tenofovir (BIKTARVY) 50-200-25 mg per tablet 1 tablet 1 tablet, oral, Daily, First dose on Lara 10/11/23 at 0900, May be dissolved in 240 mL of water. Give 2 hrs before or 6 hrs after MVI, antacids, or other products containing sucralfate, magnesium, aluminum, iron, or zinc., Indications: HIV infection 1003 (Given - Provider: Donya Johnson RN) 0810 (Given - Provider: Caitlyn Palacios RN) 0744 (Given - Provider: Caitlyn Palacios RN) doxepin (SINEquan) capsule 10 mg 10 mg, oral, Nightly, First dose (after last modification) on Sun10/14/23 at 2100, Indications: depression 2013 (Given - Provider: Pete Castro RN) 2028 (Given - Provider: Pete Castro RN) DULoxetine DR (CYMBALTA) extended release capsule 60 mg 60 mg, oral, Daily, First dose (after last modification) on Sun10/15/23 at 0900, Capsule may be opened and contents mixed with applesauce or apple juice ONLY. Do not crush, chew, cut, dissolve, open or otherwise manipulate tablet/capsule. 1003 (Given - Provider: Donya Johnson RN) 0810 (Given - Provider: Caitlyn Palacios, VICTOR MANUEL) 0743 (Given - Provider: Caitlyn Palacios, VICTOR MANUEL) enoxaparin (LOVENOX) syringe 40 mg 40 mg, subcutaneous, Daily (for enoxaparin), First dose on Sun10/14/23 at 2100, Indications: Deep Vein Thrombosis Prevention 2014 (Given - Provider: Pete Castro RN) 2028 (Not Given - Provider: Pete Castro RN - Reason: Patient/family refused) penicillin G potassium 4 million units/40 mL in sterile water (premix) 4 Million Units (COMPLETED) 4 Million Units, intravenous, Administer over 30 Minutes, Every 4 hours scheduled, First dose (after last modification) on Sun10/19/23 at 1300, For 32 doses, Indications: c/f neurosyphilis 0038 (New Bag - Provider: Dallas Nolan RN)0443 (New Bag - Provider: Dallas Nolan RN)1003 (New Bag - Provider: Donya Johnson RN)1311 (New Bag - Provider: Donya Johnson RN)1710 (New Bag - Provider: Donya Johnson RN) sodium chloride 0.9% flush 5-10 mL (CANCELED) 5-10 mL, intra-catheter, Every 12 hours scheduled, First dose on Sun10/17/23 at 1445, Flush volume based on line type, size, and protocol. 2013 (Given - Provider: Pete Castro RN) 0752 (Not Given - Provider: Caitlyn Palacios RN - Reason: Other)0812 (Given - Provider: Caitlyn Palacios RN) PRN Medication Order 10/24/2023 10/25/2023 10/26/2023 ondansetron (ZOFRAN) injection 4 mg 4 mg, intravenous, Administer over 2 Minutes, Every 4 hours PRN, nausea, Starting on Sun10/12/23 at 0725 polyethylene glycol (MIRALAX) packet 17 g 17 g, oral, Daily PRN, constipation, 1st line, Starting on Sun10/20/23 at 0845, Indications: constipation ramelteon (ROZEREM) tablet 8 mg 8 mg, oral, Nightly PRN, sleep, Starting on Sun10/23/23 at 1143, Indications: Sleep-Onset Insomnia 2018 (Given - Provider: Pete Castro, RN) 2028 (Given - Provider: Pete Castro RN) senna-docusate (PERICOLACE) 8.6-50 mg per tablet 1 tablet 1 tablet, oral, 2 times daily PRN, constipation, 2nd line, Starting on 10/20/23 at 0845 documented in this encounter Orders Medications Ordered That Prasad ht Not Have Been Administered Count Last Ordered Date First Ordered Date polyethylene glycol (MIRALAX) packet 17 g 2 10/20/2023 senna-docusate (PERICOLACE) 8.6-50 mg per tablet 1 tablet 2 10/20/2023 penicillin G potassium 4 mil lion units/40 mL in sterile water (premix) 4 Million Units 1 10/19/2023 lidocaine (PF) (XYLOCAINE) 1 0 mg/mL (1 %) preservative free injection 10-20 mg 1 10/17/2023 sodium chloride 0.9% flush 5-20 mL 1 2023 sodium chloride 0.9% 0.9% in fusion - ADS Override Pull 1 10/13/2023 Lab Orders Without Results Count Last Ordered D ate First Ordered Date MISCELLANEOUS LAB TEST 1 10/14/2023 HEPATITIS A IGM 1 10/11/2023 CRP (ACUTE PHASE) 1 10/10/2023 ERYTHROCYTE SEDIMENTATION RATE 1 10/10/2023 EKG Orders Without Results Count Last Ordered D ate First Ordered Date ECG 12-LEAD 1 10/11/2023 Immunization/Injection Count Last Ordered Date First Ordered Date HEPATITIS B VACCINE DIALYSIS OR IMMUNOSUPPRESSED 3-DOSE IM 1 10/24/2023 Consult Count Last Ordered Date First Orde red Date IP CONSULT TO VASCULAR ACCESS TEAM 2 2023 IP CONSULT TO SOCIAL WORK 2 10/15/2023 IP CONSULT TO AUDIOLOGY 1 10/11/2023 IP CONSULT TO ENT 1 10/11/2023 IP CONSULT TO INFECTIOUS DISEASES 1 024 IP CONSULT TO OPHTHALMOLOGY 1 10/11/2023 IP CONSULT TO PSYCHIATRY 1 10/10/2023 Admission Count Last Ordered Date First Orde red Date ADMIT TO INPATIENT 1 10/10/2023 Discharge Count Last Ordered Date First Orde red Date DISCHARGE PATIENT 1 10/26/2023 documented in this encounter Care Teams Racket Stringer Relationship Specialty Start Date End Date No, Physician PCP - General 10/27/22 10/11/23 Mady Sullivan MD [address] [facility] [facility] [address] [address] PCP - General Infectious Diseases 10/12/23 Henrique Hardin MD [address] [facility] [address] [address] Internal Medicine 10/27/22 10/11/23 Rosalie Physician 10/12/23 documented as of this encounter
--- OUTSIDE RECORDS SUMMARY | 2024-08-10 03:35 | XMS_ITS | Encounter Summary ---
Author Organization 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 Provided clinic information to have him call back. documented in this encounter Plan of Treatment Not on file documented as of this encounter Visit Diagnoses Not on filedocumented in this encounter Care Teams Supervisor Cytogenetic Laboratory Relationship Specialty Start Date End Date Henrique Hardin MD PCP - General Internal Medicine 10/14/20 10/26/22 documented as of this encounter
--- OUTSIDE RECORDS SUMMARY | 2024-08-10 03:35 | XMS_ITS | Encounter Summary ---
Author Organization [facility] Healthcare Address [address] [place] [address] Care Team Providers Care Refund Specialist Name Role Phone Henrique Hardin MD Primary Care Provider +1- [phone] Encounter Details Date Type Department Care Team (Late st Contact Info) Description 11/04/2020 9:30 AM CDT - 11/04/2020 10:30 AM CDT Surgery [facility] Operating Room [address] [place] [address] Katlyn Wolff MD [address] [facility] [id number] [place] [address] RECTAL EXAM UNDER ANESTHESIA, EXCISION AND FUGURATION ANAL CONDYLOMA, FISTULATOMY Surgery Details Date/Time Status Location OR Service Patient Class Case Cl ass Case Type Trauma Case? 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 If prescribed Percocet, [place], Tylenol #3, or any agent containing acetaminophen [...] felt, these will dissolve over time. Call [phone] to schedule or confirm a postoperative appointment at 4 weeks following surgery at [facility]. * Attachments The following attachments cannot be sent through Care Everywhere. * Rectal Fistulotomy (Discharge Care) ([place]) * General Anesthesia (Discharge Care) ([place]ien) documented in this encounter Medications at Time [...] note were not included. Anesthesia Evaluation Phil hCase Jr. is a 25 y.o. male Procedure(s): [...] Date ??? HIV (human immunodeficiency virus infection) ([facility]) ??? Neuropathy ([facility]) No past surgical history on file. No [...] planned. Informed Consent: Discussed plan with attending, PRIYANKA and AA. Consent and Attending signature: I [...] Role: * Katlyn Wolff MD - Primary ASBESTOS WORKER HELPER Antonia Jones MD DATE OF SURGERY 11/04/2020 [...] anal canal mucosa was then and from [place] [facility] no other intra canal lesions were found. [...] (including opening and closing). Katlyn Wolff MD pharmaceutical development technician Section of Colon & Rectal Surgery [facility] Dictated note was generated using voice-aircraft hydraulic equipment mechanic technology and some variance may result. documented [...] PATHOLOGY CH - 11/05/2020 10:13 AM CDT [facility] results best viewed via link to PDF [facility] Department of Pathology [address] [place] [address] Final Report Patient Name: ??PHIL CHASE Paco Address: ??[address] [facility], ??[place], [place] [address] Gender: ??M : ??1995 (Age: 25) Service: ??Surgery Location: [facility] #: ??[id number] Patient Type: ??[facility] Accession # ?[id number] Taken: ??11/04/2020 Received: ??11/04/2020 Accessioned: ??11/04/2020 Reported: [...] specimen is submitted in two containers labeled Ismaeldorothy Antonio Salvatore FELDMAN . A. ??The first container is labeled anal condyloma . ??It is a shaved piece of pink-herzog granular skin measuring 1.0 cm. ??The specimen is inked, sectioned and all in A B. ??The second container is labeled anal fistula . ??It is four pieces of herzog tissue and skin measuring 3-7 mm. ??All in B. ??Rinku Flaherty M.D., Ph.D./Yu Jacobson REPORT IMAGES AND SCANNED DOCUMENTS, IF INCLUDED, ONLY VIEWABLE IN PDF VERSION OF REPORT The performance characteristics of some immunohistochemical stains, fluorescence in-situ hybridization tests and immunophenotyping by flow cytometry cited in this report (if any) were determined by the Surgical Pathology Department at [facility] as part of an ongoing assistant quality manager program and in compliance with federally mandated [...] characteristics determined by the Surgical Pathology Department [facility]. ??It has not been cleared or approved by the U. S. Food and Drug Administration. 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 documented in [...] 0900, For 1 dose, Pre-Op, Indications: Pre-Emptive AnalgesiaIndications: Pre-Emptive Analgesia Given 11/04/2020 8:35 AM CDT 1,000 mg bacitracin-polymyxin B (POLYSPORIN) 500-10,000 unit/gram ointment tube As needed, Starting on Lara 11/04/20 at 0932, Intra-Op Given 11/04/2020 9:32 AM CDT 2 application (deactivated) Surgical Site bupivacaine (MARCAINE) 0.25 % (2.5 mg/mL) preservative free injection As needed, Starting on Lara 11/04/20 at 0930, Intra-Op Given 11/04/2020 9:30 AM CDT 40 mL Surgical Site celecoxib (CeleBREX) 200 mg capsule - ADS Override Pull Starting on Lara 11/04/20 at 0827, For 1 dose, Created by cabinet override celecoxib (CeleBREX) capsule 200 mg 200 mg, oral, Once, On Lara 11/04/20 at 0900, For 1 dose, Pre-Op, Indications: Pre-Emptive PainIndications:Pre-E mptive Pain Given 11/04/2020 8:36 AM CDT 200 mg Lactated Ringer's (LR) infusion 30 mL/hr, intravenous, Continuous, Starting on Lara 11/04/20 at 0900 New Bag 11/04/2020 8:59 AM CDT sodium chloride 0.9% irrigation As needed, Starting on Lara 11/04/20 at 0931, Intra-Op Given 11/04/2020 9:31 AM CDT 1,000 mL Surgical Site documented in this encounter Discontinued Medications Medication [...] Count Last Ordered Date First Ordered Date balanced salt soln no.2 irri g. (BSS) intraocular solution - ADS Override Pull 1 11/04/2020 diphenhydrAMINE (BENADRYL) i njection 12.5 [...] chloride 0.9% flush 0.5-20 mL 1 10/21 Diet Count Last Ordered Date First Orde red Date ADULT DISCHARGE DIET 1 11/04/2020 Nursing Count Last Ordered Date First Orde red Date DISCHARGE ACTIVITY 2 11/04/2020 DISCHARGE CALL PROVIDER 6 11/04/2020 DISCHARGE DRESSING 2 11/04/2020 documented in this encounter Care Teams Refund Specialist Relationship Specialty Start Date End Date Henrique Hardin MD PCP - General Internal Medicine 10/14/20 10/26/22 documented as of this encounter
--- OUTSIDE RECORDS SUMMARY | 2024-08-10 03:35 | XMS_ITS | Encounter Summary ---
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 PT LVM for pt on new number concerning appointments and attendance. Reminded him of upcoming appointment and clinic phonenumber. If pt does not come to next visit, chart will be discharged. documented in this encounter Plan of Treatment Not on file documented as of this encounter Visit Diagnoses Not on filedocumented in this encounter Care Teams Patient Partner Relationship Specialty Start Date End Date Henrique Hardin MD PCP - General Internal Medicine 10/14/20 10/26/22 documented as of this encounter
--- OUTSIDE RECORDS SUMMARY | 2024-08-10 03:35 | XMS_ITS | Encounter Summary ---
Author Organization [facility] Healthcare Address [address] [place] [address] Care Team Providers Care Leather Products Supervisor Name Role Phone Henrique Hardin MD Primary Care Provider [phone]- [phone] Reason for Visit * Reason Onset Date Comments PT Discharge 12/10/2020 Encounter Details Date Type Department Care Team (Late st Contact Info) Description 12/10/2020 Documentation [facility] Rehabilitation Services at [address] [place], [place] [id number] Sindy Akers, PT PT Discharge Social History Tobacco Use Types Packs/Day Years [...] on file 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 male ICD-9-CM ICD-10-CM 1. 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 Right foot drop 736.79 M21.371 Subjective: Pt discharged due to attendance policy. PT Start Date: 10/20/20 Last PT Visit: 11/02/20 No Shows: 5 Cancellations: 6 Total # of Visits: 4 Goals: unable to assess due to poor attendance. The patient has discontinued coming to therapy and is DC due to attendance policy. Pt to manage his symptoms Indep with use of HEP. Plan is to DC skilled physical therapy at this time. Sindy Akers PT documented in this encounter Plan of Treatment Not on file documented as of this encounter Visit Diagnoses Diagnosis 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HCC)- Primary Other causes of myelitis Right foot drop Other acquired deformity of ankle and foot documented in this encounter Care Teams Leather Products Supervisor Relationship Specialty Start Date End Date Henrique Hardin MD PCP - General Internal Medicine 10/14/20 10/26/22 documented as of this encounter
--- OUTSIDE RECORDS SUMMARY | 2024-08-10 03:35 | XMS_ITS | Encounter Summary ---
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 Outcome: Progressing Goal: STG: Identify coping skills to manage depression and determine which coping skills will be utilized post-discharge Outcome: Progressing Problem: Ineffective Coping Goal: LTG: Verbalizes and enacts adaptive coping mechanisms by discharge Outcome: Progressing Goal: STG: Identify stressors, including trauma, which led to compromised/ineffective coping Outcome: Progressing Goal: STG: Identify effective coping strategies Outcome: Progressing documented in this encounter Plan of Treatment Pending Results Name Type Priority Associated Diagnoses Date /Time Lipid panel Lab STAT 10/02/2023 11 :11 AM CDT Hepatic function panel Lab STAT 11:11 AM CDT Scheduled Orders Name Type Priority Associated Diagnoses Orde r Schedule Lipid panel Lab STAT Once for 1 Oc currences starting 10/02/2023 until 10/02/2023 Hepatic function panel Lab STAT On ce for 1 Occurrences starting 10/02/2023 until 10/02/2023 documented as of this encounter Procedures Procedure Name Priority Date/Time Associated Diagnosis Comments N. GONORRHOEAE/C. TRACHOMATIS AMPLIFICATION STAT 10/02/2023 2:04 PM CDT TREPONEMAL IGG/IGM STAT 10/02/2023 2: 04 PM CDT RPR TITER STAT 10/02/2023 2:04 PM CDT RPR STAT 10/02/2023 2:04 PM CDT DRUGS OF ABUSE SCREEN, URINE WITHOUT CONFIRMATION STAT 10/02/2023 12:14 PM CDT EGFR STAT 10/02/2023 11:11 AM CDT DIFFERENTIAL AUTO STAT 10/02/2023 11: 11 AM CDT CBC WITH AUTO DIFFERENTIAL STAT 10/02/2023 11:11 AM CDT ETHANOL STAT 10/02/2023 11:11 AM CDT ACETAMINOPHEN LEVEL STAT 10/02/2023 1 1:11 AM CDT SALICYLATE LEVEL STAT 10/02/2023 11:1 1 AM CDT HEPATIC FUNCTION PANEL STAT 11:11 AM CDT LIPID PANEL STAT 10/02/2023 11:11 AM CDT BASIC METABOLIC PANEL STAT 10/02/2023 11:11 AM CDT documented in this encounter Results * (ABNORMAL) Treponemal IgG/IgM Blood (10/02/2023 2:04 PM CDT) [facility] Treponemal IgG/IgM Reactive( A) Nonreactive Comment: Interpretive Data: If test is reported as EQUIVOCAL, a new sample should be drawn in two weeks for testing. Current interpretive data was last revised on 2018. Blood 10/02/2023 2:04 PM CDT 10/02/2023 2:18 PM CDT Chas Dubon MD LAB MICROBIOLOGY - GENE RAL ORDERABLES Final Result Performing Organization Address City/[facility]/ZIP Co de Phone Number [facility] Department [place] [address] * (ABNORMAL) RPR Titer Blood (10/02/2023 2:04 PM CDT) [facility] RPR qn 1:32(A) Nonreactive Blood 10/02/2023 2:04 PM CDT 10/02/2023 2:18 PM CDT Chas Dubon MD LAB MICROBIOLOGY - GENE RAL ORDERABLES Final Result [facility] Department [place] [address] * (ABNORMAL) RPR Blood Blood, Venous (10/02/2023 2:04 PM CDT) [facility] RPR Reactive(A ) Nonreactive Blood (Blood, Venous) 10/02/2023 2:04 PM CDT 10/02/2023 2:18 PM CDT Chas Dubon MD LAB MICROBIOLOGY - GENE RAL ORDERABLES Final Result Performing Organization Address [facility] Co de Phone Number [facility] [place] [address] * N. gonorrhoeae/C. trachomatis Amplification Urine (10/02/2023 2:04 PM CDT) Pathologist [facility] C. trachomatis Not Detected Not Detected [facility] N. gonorrhoeae Not Detected Not Detected [facility] Comment: Interpretive Data This assay detects Chlamydia trachomatis and Neisseria gonorrhoeae by nucleic acid amplification testing (NAAT). This assay has been cleared by the [place] Food and Drug administration. The performance characteristics of this test have been verified by the [facility] Infectious Disease laboratory. The performance characteristics of this test have not been evaluated in individuals less than 14 years of age. Current Interpretive Data last revised 2023. Urine (None) 10/02/2023 2:04 PM CDT 10/02/2023 2:34 PM CDT Chas Dubon MD LAB MICROBIOLOGY - GENE RAL ORDERABLES Final Result Performing Organization Address [facility] de Phone Number [facility] Department [place] [address] [facility] * Drugs of Abuse Screen, Urine without Confirmation (10/02/2023 12:14 PM CDT) Pathologist [facility] Amphetamine, ur Not Detected CutOff 500ng/mL Comment: Interpretive Data - Amphetamines: ??Samples containing greater than 500 ng/mL d-methamphetamine ??or other cross-reacting amphetamine compounds are reported as positive. ??Amphetamine immunoassays are subject to significant false positive rates due to cross-reactivity of non-amphetamine drugs. Confirmatory testing required for definitive results. Current Interpretive Data was last reviewed 2023. Barbiturates, ur Not Detected CutOff 200ng/mL [facility] Comment: Interpretive Data - Barbiturates: ??Samples [...] Ur Not Detected Cutoff 1 ng/mL [facility] Comment: Interpretive Data - Fentanyl: ??Samples containing [...] Oxycodone, ur Not Detected CutOff 100ng/mL [facility] Comment: Interpretive Data - Oxycodone: ??Samples containing greater than 100 ng/mL oxycodone or other cross-reacting compounds are reported as ??positive. ??False positive and false negative results are possible. Confirmatory testing required for definitive results. Current Interpretive Data was last reviewed 2023. Phencyclidine, ur Not Detected CutOff 25 ng/mL [facility] Comment: Interpretive Data - Phencyclidine: ??Samples containing greater than 25 ng/mL phencyclidine or other cross-reacting compounds are reported as positive. ??False positive and false negative results are possible. Confirmatory testing required for definitive results. Current Interpretive Data was last reviewed 2023. Urine Creatinine 122 mg/dL [facility] Comment: Interpretive Data Urine Creatinine: < 10 mg/dL is extremely dilute = or > 10 but < 20 mg/dL is dilute = or > 20 mg/dL is normal Current Interpretive Data was last revised on 2017. Urine 10/02/2023 12:1 4 PM CDT 10/02/2023 12:42 PM CDT Narrative [facility] - 10/02/2023 1:15 PM CDT Drug of Abuse screening is performed by immunoassay for medical purposes only. ??This is not to be used for Pain Management purposes. Chas Dubon MD LAB URINE ORDERABLES nal Result [facility] [address] Department of Laboratories [place], [place] [id number] * (ABNORMAL) Hepatic function panel (10/02/2023 11:11 AM CDT) Bilirubin, total 0.2 0.1 - 1.2 mg/dL Bilirubin, direct See Comment 0.1 - 0.3 mg/dL [facility] Comment:Credited; Hemolyzed Specimen Protein, pl 8.9(H) 6.5 - 8.5 g/dL [facility] Albumin 4.1 3.5 - 5.0 g/dL [facility] Alk phos 87 40 - 130 Units/L [facility] ALT 32 7 - 55 Units/L [facility] AST 50 10 - 50 Units/L [facility] Comment:Hemolyzed; result ma y be falsely elevated Blood 10/02/2023 11:1 1 AM CDT 10/02/2023 11:29 AM CDT Narrative [facility] - 10/04/2023 3:21 AM CDT requested by Sarah Mahoney RN-PSC us Pranav Mccallum MD LAB BLOOD ORDERABLES Fin al Result [facility] [address] Department [place] [address] * (ABNORMAL) Lipid panel (10/02/2023 11:11 AM CDT) Cholesterol 176 30 - 199 mg/dL Comment: Interpretive Data [...] Data was last revised on 2018. Triglycerides 161(H) <=149 mg/dL [facility] Comment: Interpretive Data Ages < or = 9 [...] Data was last revised on 2018. HDL 44 >=40 mg/dL [facility] Comment: Interpretive Data Ages < or [...] was last revised on 2018. LDL, calculated 100 <=129 mg/dL [facility] Comment: Interpretive Data Ages < or = 19 years ??Acceptable: ? <110 mg/dL ??Borderline high: ??110-129 mg/dL ??High: ?>or= 130 mg/dL Ages > or = 20 years ??Optimal: ? <100 mg/dL ??Near optimal: ?100-129 mg/dL ??Borderline high: ?? 130-159 mg/dL ??High: ?>160 mg/dL Literature References: 1. Expert Panel on Integrated Guidelines for Cardiovascular Health and Risk Reduction in Children and Adolescents. Pediatrics 2011;128:S213 2. NCEP Expert Panel. Circulation 2004;110:227 Current Interpretive Data was last revised on 2018. Non-HDL Cholesterol 132 mg/dL [facility] Comment: Interpretive Data Ages < or [...] was last revised on 2018. Chol/HDL ratio 4 [facility] Blood 10/02/2023 11:1 1 AM CDT 10/02/2023 11:29 AM CDT Narrative [facility] - 10/03/2023 5:53 AM CDT requested by Sraah Mahoney RN-PSC us Jabier Lucio MD LAB BLOOD ORDERABLES Fin al Result [facility] [address] [place] [address] * eGFR (10/02/2023 11:11 AM CDT) eGFR >90 >=60 mL/min/1. 73 [...] interpretive data was last reviewed 2021. Blood 10/02/2023 11:1 1 AM CDT 10/02/2023 11:29 AM CDT us Chas Dubon MD LAB BLOOD ORDERABLES [facility] Result [facility] [address] [place] [address] * Differential, auto (10/02/2023 11:11 AM CDT) Neutrophil abs 2.0 1.5 - 6.5 K/cumm Imm gran abs 0.0 0.0 - 0.1 K/cumm [facility] Lymphocyte abs 2.1 0.8 - 3.3 K/cumm [facility] Monocyte abs 0.3 0.2 - 0.8 K/cumm [facility] Eosinophil abs 0.1 0.0 - 0.5 K/cumm [facility] Basophil abs 0.0 0.0 - 0.1 K/cumm [facility] Neutrophil pct 43.5 % [facility] Comment: Interpretive Data Percent cell count reference ranges are not reported, since discordance with absolute values may lead to misinterpretation of CBC data. Current Interpretive Data was last revised on 2017. Imm gran pct 0.2 % [facility] Comment: Interpretive Data Percent cell count reference ranges are not reported, since discordance with absolute values may lead to misinterpretation of CBC data. Current Interpretive Data was last revised on 2017. Lymphocyte pct 46.5 % [facility] Comment: Interpretive Data Percent cell count reference ranges are not reported, since discordance with absolute values may lead to misinterpretation of CBC data. Current Interpretive Data was last revised on 2017. Monocyte pct 6.7 % [facility] Comment: Interpretive Data Percent cell count reference ranges are not reported, since discordance with absolute values may lead to misinterpretation of CBC data. Current Interpretive Data was last revised on 2017. Eosinophil pct 2.2 % [facility] Comment: Interpretive Data Percent cell count reference ranges are not reported, since discordance with absolute values may lead to misinterpretation of CBC data. Current Interpretive Data was last revised on 2017. Basophil pct 0.9 % [facility] Comment: Interpretive Data Percent cell count reference ranges are not reported, since discordance with absolute values may lead to misinterpretation of CBC data. Current Interpretive Data was last revised on 2017. Blood 10/02/2023 11:1 1 AM CDT 10/02/2023 11:29 AM CDT Chas Dubon MD LAB BLOOD ORDERABLES nal Result [facility] [address] Department [place] [address] * Acetaminophen level (10/02/2023 11:11 AM CDT) Acetaminophen <5 <=5 mcg/mL Comment: Interpretive Data Significant hepatic injury may occur and treatment with n-acetyl cysteine is generally recommended if the acetaminophen level exceeds: 150 mcg/mL at 4 hours after ingestion ??75 mcg/mL at 8 hours after ingestion ??38 mcg/mL at 12 hours after ingestion ??19 mcg/mL at 16 hours after ingestion Consult toxicology or poison control ([phone]) for unknown ingestion time. Current interpretive data was last revised 2023. Blood 10/02/2023 11:1 1 AM CDT 10/02/2023 11:29 AM CDT Chas Dubon MD LAB BLOOD ORDERABLES Fi nal Result Performing Organization Address [facility] Co de Phone Number [facility] [employer] [place] [address] * Salicylate level (10/02/2023 11:11 AM CDT) Salicylate <9.0 <=9.0 mg/dL Comment: Interpretive Data Toxic: 30 mg/dL or greater. Current interpretive data was last revised 2023. Blood 10/02/2023 11:1 1 AM CDT 10/02/2023 11:29 AM CDT Chas Dubon MD LAB BLOOD ORDERABLES Fi nal Result Performing Organization Address [facility] de Phone Number [facility] [employer] [place] [address] * Ethanol (10/02/2023 11:11 AM CDT) Ethanol <10 <=10 mg/dL Comment: Interpretive Data Legal limit of intoxication > or = 80 mg/dL Levels > or = 400 mg/dL are potentially TOXIC. Current interpretive data was last revised on 2018. Blood 10/02/2023 11:1 1 AM CDT 10/02/2023 11:29 AM CDT Chas Dubon MD LAB BLOOD ORDERABLES Fi nal Result Performing Organization Address City/[facility] Co de Phone Number [facility] [place] [address] * Basic metabolic panel (10/02/2023 11:11 AM CDT) Pathologist [facility] Sodium 139 135 - 145 mmol/L Potassium, pl 4.6 3.3 - 4.9 mmol/L [facility] Comment:Hemolyzed; Potassium value may be falsely elevated by as much as 0.6-1.0 mmol/L. Suggest redraw and reanalysis. Chloride 104 97 - 110 mmol/L [facility] CO2 28 22 - 32 mmol/L [facility] Anion gap 7 2 - 15 mmol/L [facility] BUN 11 6 - 25 mg/dL [facility] Creatinine 1.05 0.80 - 1.30 mg/dL [facility] Glucose 72 70 - 199 mg/dL [facility] Comment: Interpretive Data Fasting glucose >/= [...] 2022. Calcium 9.5 8.5 - 10.3 mg/dL [facility] Blood 10/02/2023 11:1 1 AM CDT 10/02/2023 11:29 AM CDT us Chas Dubon MD LAB BLOOD ORDERABLES Fi nal Result [facility] [address] Department [place] [address] * (ABNORMAL) CBC with auto differential (10/02/2023 11:11 AM CDT) Pathologist [facility] WBC 4.6 3.8 - 9.9 K/cumm Hgb 14.1 13.0 - 17.5 g/dL [facility] Hct 43.8 38.9 - 50.3 % [facility] Plt 338 150 - 400 K/cumm [facility] MPV 9.6 9.1 - 12.3 fL [facility] RBC 5.42 4.30 - 5.80 M/cumm [facility] MCV 80.8(L) 81.3 - 96.4 fL [facility] MCH 26.0(L) 27.1 - 33.3 pg [facility] MCHC 32.2(L) 32.3 - 35.7 g/dL [facility] RDW CV 16.3(H) 11.1 - 14.9 % [facility] RDW SD 47.5 35.7 - 48.1 fL [facility] NRBC abs 0.00 0.00 - 0.01 K/cumm [facility] Blood 10/02/2023 11:1 1 AM CDT 10/02/2023 11:29 AM CDT Chas Dubon MD LAB BLOOD ORDERABLES nal Result [facility] [address] Department [place] [address] documented in this encounter Visit Diagnoses Diagnosis Suicide attempt (HCC) Suicide and self-inflicted injury by unspecified means History of HIV infection (HCC) Depression, unspecified HIV (human immunodeficiency virus infection) (HCC) Human immunodeficiency virus [HIV] disease Syphilis Unspecified syphilis Suicide attempt (HCC) Suicide and self-inflicted injury by unspecified means Inguinal hernia Inguinal hernia without mention of obstruction or gangrene, unilateral or unspecified, (not specified as recurrent) 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 Plaque psoriasis Other psoriasis Methamphetamine use disorder, moderate (HCC) documented in this encounter Admitting Diagnoses Diagnosis Depression, unspecified Suicide attempt (HCC) Suicide and self-inflicted injury by unspecified means documented in this encounter Administered Medications Inactive Administered Medications - up to 3 most recent administrations Medication Order MAR Action Action Date Dose Rate Site acetaminophen (TYLENOL) tablet 650 mg 650 mg, oral, Every 6 hours PRN, 1st line for pain, Starting on Sun10/02/23 at 1840, Indications: PainIndications:Pain ARIPiprazole (ABILIFY) tablet 5 mg 5 mg, oral, Daily, First dose on Sun10/03/23 at 1345 Given 10/05/2023 9:26 AM CDT 5 mg Given 10/04/2023 8:24 AM CDT 5 mg Given 10/03/2023 1:34 PM CDT 5 mg xkdfrzkeqei-divcuuvkbjjgw-zgkwjgeeq (BIKTARVY) 50-200-25 mg per tablet 1 tablet 1 tablet, oral, Daily, First dose on Sun10/03/23 at 0900, May be dissolved in 240 mL of water. Give 2 hrs before or 6 hrs after MVI, antacids, or other products containing sucralfate, magnesium, aluminum, iron, or zinc., Indications: HIV infectionIndications:HIV infection Given 10/05/2023 9:28 AM CDT 1 tablet Given 10/04/2023 8:24 AM CDT 1 tablet Given 10/03/2023 9:21 AM CDT 1 tablet doxepin (SINEquan) capsule 25 mg 25 mg, oral, Nightly, First dose on Sun10/03/23 at 2100 Given 10/04/2023 9:05 PM CDT 25 mg Given 10/03/2023 9:00 PM CDT 25 mg haloperidol (HALDOL) injection 5 mg 5 mg, intramuscular, Every 4 hours PRN, other, clinically emergent severe agitation, Starting on Sun10/02/23 at 1840, If administered IV push, administer over 5 min for adults, Indications: AgitationIndications:Agitation haloperidoL (HALDOL) tablet 5 mg 5 mg, oral, Every 6 hours PRN, agitation, Starting on Sun10/02/23 at 1840, Indications: AgitationIndications:Agitation hydrOXYzine (ATARAX) tablet 25 mg 25 mg, oral, Every 4 hours PRN, anxiety, Starting on Sun10/02/23 at 1855 Given 10/04/2023 9:05 PM CDT 25 mg Given 10/03/2023 9:01 PM CDT 25 mg Lactated Ringer's (LR) bolus 1,000 mL 1,000 mL, intravenous, Once, On Sun10/02/23 at 1109, For 1 dose New Bag 10/02/2023 11:25 AM CDT 1,000 mL LORazepam (ATIVAN) injection 2 mg 2 mg, intramuscular, Every 4 hours PRN, other, clinically emergent severe agitation, Starting on Sun10/02/23 at 1840, For IV administration, draw up ordered admin dose/volume, then dilute with equal volume of 0.9% sodium chloride and administer total volume to patient. Do not exceed a rate of 2 mg/minute., Indications: AgitationIndications:Agitation nicotine polacrilex (NICORETTE) gum 2 mg 2 mg, mouth/throat, Every 2 hours PRN, nicotine withdrawal symptoms, Starting on Sun10/02/23 at 1854, Instruct patients to chew into gum and then place between the cheek and gum to enhance absorption. sertraline (ZOLOFT) tablet 200 mg 200 mg, oral, Daily, First dose on Sun10/03/23 at 1345 Given 10/05/2023 9:26 AM CDT 200 mg Given 10/04/2023 8:24 AM CDT 200 mg Given 10/03/2023 1:34 PM CDT 200 mg traZODone (DESYREL) tablet 50 mg 50 mg, oral, Nightly PRN, sleep, Starting on Sun10/02/23 at 1854 Given 10/04/2023 9:05 PM CDT 50 mg documented in this encounter Discontinued Medications Medication Sig Discontinue Reason Start Date End Da te dolutegravir-lamivudi ne (Dovato) 50-300 mg TAKE ONE TABLET BY MOUTH ONCE EVERY DAY Stop Taking at Discharge 07/02/2020 10/05/2023 gabapentin (NEURONTIN) 300 mg capsule TAKE ONE CAPSULE BY MOUTH THREE TIMES DAILY Stop Taking at Discharge 07/02/2020 10/05/2023 nystatin 100,000 unit/mL suspension Take 500,000 Units by mouth 4 (four) times a day Stop Taking at Discharge 10/06/2019 10/05/2023 triamcinolone (KENALOG) 0.1 % ointment Apply topically 2 (two) times a day Stop Taking at Discharge 09/16/2019 10/05/2023 oxyCODONE (ROXICODONE) 5 mg immediate release tabletIndications:Candy n Take 1 tablet (5 mg total) by mouth every 4 (four) hours as needed for pain Stop Taking at Discharge 11/04/2020 10/05/2023 docusate sodium (COLACE) 100 mg capsuleIndications:co nstipation Take 1 capsule (100 mg total) by mouth 2 (two) times a day Stop Taking at Discharge 11/04/2020 10/05/2023 sulfamethoxazole-trim ethoprim (BACTRIM DS) 800-160 mg per tablet Take 1 tablet by mouth 2 (two) times a day Stop Taking at Discharge 10/05/2023 documented as of this encounter Active and Recently Administered Medications Times are shown in CDT. Scheduled Medication Order 10/03/2023 10/04/2023 10/05/2023 ARIPiprazole (ABILIFY) tablet 5 mg 5 mg, oral, Daily, First dose on Sun10/03/23 at 1345 1334 (Given - Provider: Chas Osorio RN) 0824 (Given - Provider: Chas Osorio RN) 0926 (Given - Provider: Peter Hubbard) bictegravir-emtricitab ine-tenofovir (BIKTARVY) 50-200-25 mg per tablet 1 tablet 1 tablet, oral, Daily, First dose on Sun10/03/23 at 0900, May be dissolved in 240 mL of water. Give 2 hrs before or 6 hrs after MVI, antacids, or other products containing sucralfate, magnesium, aluminum, iron, or zinc., Indications: HIV infection 0921 (Given - Provider: Chas Osorio RN) 0824 (Given - Provider: Chas Osorio RN) 0928 (Given - Provider: Peter Hubbard) doxepin (SINEquan) capsule 25 mg 25 mg, oral, Nightly, First dose on Sun10/03/23 at 2100 2100 (Given - Provider: Sarah Mahoney RN) 210 (Given - Provider: Sarah Mahoney RN) sertraline (ZOLOFT) tablet 200 mg 200 mg, oral, Daily, First dose on Sun10/03/23 at 1345 1334 (Given - Provider: Chas Osorio RN) 0824 (Given - Provider: Chas Osorio RN) 0926 (Given - Provider: Peter Hubbard) PRN Medication Order 10/03/2023 10/04/2023 10/05/2023 acetaminophen (TYLENOL) tablet 650 mg 650 mg, oral, Every 6 hours PRN, 1st line for pain, Starting on Sun10/02/23 at 1840, Indications: Pain haloperidol (HALDOL) injection 5 mg(Linked Group 1) 5 mg, intramuscular, Every 4 hours PRN, other, clinically emergent severe agitation, Starting on Sun10/02/23 at 1840, If administered IV push, administer over 5 min for adults, Indications: Agitation haloperidoL (HALDOL) tablet 5 mg 5 mg, oral, Every 6 hours PRN, agitation, Starting on Sun10/02/23 at 1840, Indications: Agitation hydrOXYzine (ATARAX) tablet 25 mg 25 mg, oral, Every 4 hours PRN, anxiety, Starting on Sun10/02/23 at 1855 210 (Given - Provider: Sarah Mahoney RN) 2104 (Given - Provider: Sarah Mahoney RN) LORazepam (ATIVAN) injection 2 mg(Linked Group 1) 2 mg, intramuscular, Every 4 hours PRN, other, clinically emergent severe agitation, Starting on Sun10/02/23 at 1840, For IV administration, draw up ordered admin dose/volume, then dilute with equal volume of 0.9% sodium chloride and administer total volume to patient. Do not exceed a rate of 2 mg/minute., Indications: Agitation nicotine polacrilex (NICORETTE) gum 2 mg 2 mg, mouth/throat, Every 2 hours PRN, nicotine withdrawal symptoms, Starting on Sun10/02/23 at 1854, Instruct patients to chew into gum and then place between the cheek and gum to enhance absorption. traZODone (DESYREL) tablet 50 mg 50 mg, oral, Nightly PRN, sleep, Starting on Sun10/02/23 at 1854 2105 (Given - Provider: Sarah Mahoney RN) Linked Groups Order Group 1: haloperidol (HALDOL) injection 5 mgJump to med 5 mg, intramuscular, Every 4 hours PRN, other, clinically emergent severe agitation, Starting on Sun10/02/23 at 1840, If administered IV push, administer over 5 min for adults, Indications: Agitation And LORazepam (ATIVAN) injection 2 mgJump to med 2 mg, intramuscular, Every 4 hours PRN, other, clinically emergent severe agitation, Starting on Sun10/02/23 at 1840, For IV administration, draw up ordered admin dose/volume, then dilute with equal volume of 0.9% sodium chloride and administer total volume to patient. Do not exceed a rate of 2 mg/minute., Indications: Agitation documented in this encounter Orders Medications Ordered That Prasad ht Not Have Been Administered Count Last Ordered Date First Ordered Date sulfamethoxazole-trimethopri m (BACTRIM DS) 800-160 mg per tablet 160 mg of trimethoprim 1 10/03/2023 acetaminophen (TYLENOL) tablet 650 mg 1 06/2024 haloperidol (HALDOL) injection 5 mg 1 10/01 haloperidoL (HALDOL) tablet 5 mg 1 10/02/19 Lactated Ringer's (LR) bolus 1,000 mL 1 06/2024 LORazepam (ATIVAN) injection 2 mg 1 024 nicotine polacrilex (NICORETTE) gum 2 mg 1 10/02/2023 EKG Orders Without Results Count Last Ordered D ate First Ordered Date ECG 12-LEAD 1 10/02/2023 Consult Count Last Ordered Date First Orde red Date IP CONSULT TO INTERNAL MEDICINE 1 IP CONSULT TO PSYCHIATRY 1 10/02/2023 IP CONSULT TO TOXICOLOGY 1 10/02/2023 IV Count Last Ordered Date First Orde red Date SALINE LOCK IV 1 10/02/2023 Admission Count Last Ordered Date First Orde red Date ADMIT TO INPATIENT 1 10/02/2023 Discharge Count Last Ordered Date First Orde red Date DISCHARGE PATIENT 1 10/04/2023 CORE MEASURES Count Last Ordered Date First Ord ered Date REASON FOR NO VTE PROPHYLAXIS AT ADMISSION 1 10/02/2023 ADT Patient Update Count Last Ordered Date Firs t Ordered Date PROVIDER TREATMENT TEAM 1 10/02/2023 documented in this encounter Care Teams Systems Manager Relationship Specialty Start Date End Date No, Physician PCP - General 10/27/22 10/11/23 Henrique Hardin MD Internal Medicine 10/27/22 10/11/23 documented as of this encounter
--- OUTSIDE RECORDS SUMMARY | 2024-08-10 03:35 | XMS_ITS | Encounter Summary ---
Author Organization [facility] Healthcare Address [address] [place] [address] Care Team Providers Care Therapeutic Support Staff Name Role Phone Henrique Hardin MD Primary Care Provider [phone]- [phone] Encounter Details Date Type Department Care Team (Late st Contact Info) Description 11/04/2020 8:59 AM CDT Anesthesia Event [facility] Operating Room [address] [place] [address] Ivette Swift MD [address] [place] [address] Anesthesia Record Procedure Summary Procedure Name Responsible Anesthesiologist Anesthesia Start Time Anesthesia Stop Time RECTAL EXAM UNDER ANESTHESIA, EXCISION AND FUGURATION ANAL CONDYLOMA, FISTULATOMY (Anus) Ivette Swift MD 11/04/20 0859 11/04/20 0942 Events Date Time Event Comment 11/04/2020 0830 0859 An Start 0859 In Room 0900 An Start Data 0903 Start Supplemental O2 0903 An Induction The patient was reevaluated immediately before moderate or deep sedation use and before anesthesia induction. 0903 Anesthesia Ready 0912 Proc Start 0912 Local injected by surgeon 0937 Proc Fin 0937 an stop data 0938 Out of Room 0942 Handoff to RN I completed my handoff to the receiving nurse during which we: 1. Patient identified 2. Responsible provider identified 3. Pertinent medical history reviewed 4. Procedure type and surgical course discussed 5. Intraoperative anesthetic management and any significant issues discussed 6. Expectations and concerns for postop period discussed 7. Questions solicited from receiving nurse 8. Patient disposition at the time of handoff: PACU 0942 An Stop Meds Name Total midazolam 2 mg fentaNYL 50 mcg propofol 80 mg propofol 240.79 mg lidocaine 1 % 100 mg ondansetron 4 mg Lactated Ringer's (LR) infusion 600 mL * Agents Name O2 * Blood No blood administrations on file. Lines, Drains, and Airways Type Details Placement Removal Peripheral IV Placement Date: 11/04/20; Placement Time: 0848; Change Due: 11/08/20; Catheter Size: 20 G; Orientation: Posterior, Right; Location: Wrist; Site Prep: Alcohol, Chlorhexidine; Technique: Anatomical landmarks; Inserted by: lois mujica RN; Insertion Attempts: 1; Patient Tolerance: Tolerated well; Removal Date: 11/04/20; Removal Time: 12111/04/20 0848 by Henrique Mujica RN 11/04/20 121 by Matilda Hagen RN RETIRED Surgical Site 11/04/20; 0938; Buttocks; 11/04/20; 0943 11/04/20 0938 by Nidhi Adkins RNFA 11/04/20 0943 by Nidhi Adkins RNFA RETIRED Surgical Site 11/04/20; 0938; Re ctum; healed; 10/11/23; 2140; Other (Comment) (healed) 11/04/20 0938 by Nidhi Adkins RNFA 10/11/232140 by Machelle Pinto RN Peripheral IV Placement Date: 11/04/20; Placement Time: 0939; Existing LDA Placed by: (came to pacu wtih this iv); Catheter Size: 20 G; Orientation: Distal, Left, Posterior; Location: Wrist; Removal Date: 11/04/20; Removal Time: 121511/04/20 0939 by Tarsha Pan RN 11/04/20 121 by Matilda Hagen RN documented in this encounter Social History [...] on file 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 Procedure Summary Date: 11/04/20 Room / Location: OPERATING ROOM 10 / OPERATING ROOM Anesthesia Start: 858 Anesthesia Stop: 941 Procedure: RECTAL EXAM UNDER ANESTHESIA, EXCISION AND FUGURATION ANAL CONDYLOMA, FISTULATOMY (N/A Anus) Diagnosis: Anal fistula Condyloma (Anal fistula [K60.3]) (Condyloma [A63.0]) Providers: Katlyn Wolff MD Responsible Provider: Ivette Swift MD Anesthesia Type: MAC ASA Status: 3 Anesthesia Type: MAC Last vitals BP 128/71 Pulse 50 Temp 36.7 ??C (98.1 ??F) (Temporal) Resp 14 SpO2 100% Anesthesia Post Evaluation Patient location during evaluation: PACU Patient participation: complete - patient participated Level of consciousness: fully awake Pain score: 0 Pain management: adequate Airway patency: patent Anesthetic complications: no Cardiovascular status: hemodynamically stable Respiratory status: room air Hydration status: euvolemic Pt is: normothermic Nausea/Vomiting status: none * Anesthesia Preprocedure Evaluation - Federico Burnham MD - 11/02/2020 1:42 PM CDT Images [...] / Other + Infectious disease - HIV. Functional Capacity Functional capacity: 6-10 METs Patient Active Problem List Diagnosis ??? Anal fistula ??? Condyloma Past Medical History: Diagnosis Date ??? HIV (human immunodeficiency virus infection) (CMS/HCC) ??? Neuropathy (CMS/HCC) History reviewed. No pertinent surgical history. No Known Allergies Taking? Last Dose Start Date End Date Provider dolutegravir-lamivudine (Dovato) 50-300 mg 07/02/20 10/13/21 Polo Nash MD gabapentin (NEURONTIN) 300 mg capsule 07/02/20 10/13/21 Polo Nsah MD nystatin 100,000 unit/mL suspension 10/06/19 -- Polo Nash MD sertraline (ZOLOFT) 50 mg tablet 09/02/19 -- Polo Nash MD triamcinolone (KENALOG) 0.1 % ointment 09/16/19 -- Polo Nash MD Current Facility-Administered Medications: ??? acetaminophen (TYLENOL) tablet 1,000 mg, 1,000 mg, oral, Once ??? celecoxib (CeleBREX) capsule 200 mg, 200 mg, oral, Once ??? Lactated Ringer's (LR) infusion, 30 mL/hr, intravenous, Continuous ??? sodium chloride 0.9% flush 0.5-20 mL, 0.5-20 mL, intra-catheter, PRN Social History Tobacco Use Smoking Status Never Smoker Smokeless Tobacco Never Used Substance and Sexual Activity Alcohol Use Not on file Substance and Sexual Activity Drug Use Not on file History reviewed. No pertinent family history. Vitals: 11/04/20 0820 BP: (!) 108/43 Pulse: 55 Resp: 16 Temp: 36.8 ??C (98.2 ??F) SpO2: 100% Lab Results Component Value Date WBC 3.54 (L) 08/02/2017 HGB 13.2 08/02/2017 HCT 39.7 08/02/2017 MCV 79.6 (L) 08/02/2017 LABPLAT 318 08/02/2017 Lab Results Component Value Date GLUCOSE 69 (L) 08/02/2017 CALCIUM 9.2 08/02/2017 SODIUM 137 08/02/2017 POTASSIUM 3.8 08/01/2017 CO2 See Comment 08/02/2017 CHLORIDE 99 08/02/2017 BUNSER 9 08/02/2017 CREATININE 0.80 08/02/2017 DOS Physical Exam Medical history, medications, and allergies reviewed. Attestation: I endorse the findings of the anesthesia pre-evaluation assessment dated: 11/04/2020. Airway Exam: Mallampati: II Cervical ROM: FROM TM distance: normal Jaw ROM: full Cardiovascular Exam: Rate: regular Rhythm: regular Pulmonary Exam: LCTA, bilat EENT Exam: trachea midline Dental Exam: Appears intact Skin Exam: Skin is warm. Current state: Patient's current state is cooperative and interactive. Anesthesia Plan ASA 3 Planned anesthesia: MAC Induction: Induction: intravenous. Postoperative Plan: No plan for postoperative opioid use. No postoperative mechanical ventilation intended. Patient's planned disposition post procedure is Outpatient. No trial extubation planned. Informed Consent: Discussed plan with attending and AA. Anesthesia plan and risks discussed with patient. Consent and Attending signature: I and/or my designee have discussed the anesthesia plan, benefits, possible alternatives, parental presence at time of induction (if indicated), and clinically relevant risks that may include dental injury, unintentional awareness, and/or other complications. The patient and/or parent/legal guardian understand, and agree to proceed. All questions answered. documented in this encounter Plan of Treatment Not on file documented as of this encounter Visit Diagnoses Not on filedocumented in this encounter Administered Medications Inactive Administered Medications - up to 3 most recent administrations Medication Order MAR Action Action Date Dose Rate Site fentaNYL (SUBLIMAZE) preservative free injection intravenous, As needed, Starting on Lara 11/04/20 at 0910, Anesthesia Intra-op Given 11/04/2020 9:10 AM CDT 50 mcg Lactated Ringer's (LR) infusion 30 mL/hr, intravenous, Continuous, Starting on Lara 11/04/20 at 0900 New Bag 11/04/2020 8:59 AM CDT lidocaine (XYLOCAINE) 10 mg/mL (1 %) injection caudal block, As needed, Starting on Lara 11/04/20 at 0903, Anesthesia Intra-op, Indications: Administration of Local AnesthesiaIndications:Ad ministration of Local Anesthesia Given 11/04/2020 9:03 AM CDT 100 mg midazolam (VERSED) 1 mg/mL preservative free injection intravenous, Administer over 2 Minutes, As needed, Starting on Lara 11/04/20 at 0859, Anesthesia Intra-op Given 11/04/2020 8:59 AM CDT 2 mg ondansetron (ZOFRAN) injection intravenous, Administer over 2 Minutes, As needed, Starting on Lara 11/04/20 at 0917, Anesthesia Intra-op Given 11/04/2020 9:17 AM CDT 4 mg propofoL (DIPRIVAN) IV intravenous, Continuous PRN, Starting on Lara 11/04/20 at 0903, Anesthesia Intra-op Rate/Dose Change 11/04/2020 9:10 AM CDT 100 mcg/kg/min 47.76 mL/hr New Bag 11/04/2020 9:03 AM CDT 75 mcg/kg/min 35.82 mL/h r propofoL (DIPRIVAN) IV intravenous, As needed, Starting on Lara 11/04/20 at 0911, Anesthesia Intra-op Given 11/04/2020 9:13 AM CDT 40 mg Given 11/04/2020 9:11 AM CDT 40 mg documented in this encounter Care Teams Therapeutic Support Staff Relationship Specialty Start Date End Date Henrique Hardin MD PCP - General Internal Medicine 10/14/20 10/26/22 documented as of this encounter
--- OUTSIDE RECORDS SUMMARY | 2024-08-10 03:35 | XMS_ITS | Encounter Summary ---
Author Organization [facility] Address [address] [facility] [address] [place] [address] Phone Care Team Providers Care Cad Specialist Name Role Phone Henrique Hardin MD Primary Care Provider +1- [phone] Reason for Visit * Reason Comments anal warts Encounter Details Date Type Department Care Team (Late st Contact Info) Description 10/29/2020 10:00 AM CDT Office Visit [facility] Department of Surgery [id number] [place] [address] Medical Office Building [address] [address] Katlyn Wolff MD [address] [facility] [phone] [place] [address] Anal fistula (Primary Dx); Condyloma Social History Tobacco Use Types Packs/Day [...] on file 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 Gender Identity Not on file Sexual Orientation Not on file documented as of this encounter Last Filed Vital Signs Vital Sign Reading Time Taken Comments Blood Pressure 115/75 10/29/2020 10:05 AM CDT Pulse 62 10/29/2020 10:05 AM CDT Temperature 36.7 ??C (98 ??F) 10/29/2020 10:05 AM CDT Respiratory Rate - - Oxygen Saturation - - Inhaled Oxygen Concentration - - Weight 78.5 kg (173 lb) 10/29/2020 10:05 AM CDT Height 182.9 cm (6') 10/29/2020 10:05 AM CDT Body Mass Index 23.46 10/29/2020 10:05 AM CDT documented in this encounter Progress Notes * Katlyn Wolff MD - 10/29/2020 10:00 AM CDT Colorectal Surgery Clinic Visit Chief Complaint: hPil Chase Jr. is a 25 y.o. male with chief complaint of anal warts Referring physician: Henrique Hardin MD HPI: Mr. Chase is a 25-year-old man with history of HIV who presents today to establish care for anal condyloma. In terms of his history, he was initially diagnosed with HIV in [address] Hardin from Infectious Diseases. He has noted a small anal canal lump that was concerning forpossible anal condyloma and was referred here for evaluation and treatment. He has tried topical therapies with no improvement. He denies any pain, bleeding, discomfort but it is noticeable on exam and for that reason is increasingly bothersome to him. Of note he also complains of occasional mucus and stool discharge. Past Medical History: Diagnosis Date ??? HIV (human immunodeficiency virus infection) ([facility]) ??? Neuropathy ([facility]) History reviewed. No pertinent surgical history. HOME MEDICATIONS : dolutegravir-lamivudine (Dovato) 50-300 mg gabapentin (NEURONTIN) 300 mg capsule nystatin 100,000 unit/mL suspension sertraline (ZOLOFT) 50 mg tablet triamcinolone (KENALOG) 0.1 % ointment No Known Allergies Social History Tobacco Use ??? Smoking status: Never Smoker ??? Smokeless tobacco: Never Used Substance Use Topics ??? Alcohol use: Not on file History reviewed. No pertinent family history. Review of Systems: As noted in HPI Constitutional: No fever, no chills, no unintended weight loss Neurological: No headaches, no dizziness, no vision changes Cardiovascular: No chest pain, no palpitations Respiratory: No shortness of breath, no coughing Psychiatric: No mood changes, no depression Lymphatic: No swollen lymph nodes Hematology: No easy bruising/bleeding Integument: No itching, no non-healing sores Oral: No mouth sores Musculoskeletal: No joint stiffness Gastrointestinal: As above Genitourinary: No hematuria or dysurea Vitals: Vitals BP 115/75 Pulse 62 Temp 36.7 ??C (98 ??F) Ht 182.9 cm (6') Wt 78.5 kg (173 lb) BMI 23.46 kg/m?? Physical exam: General: Well developed, well nourished Orientation/Psych: Alert and oriented x 3 HEENT: Normocephalic/atraumatic, anicteric Cardiac: Regular rate and rhythm Pulmonary: Non-labored breathing, no audible wheezing Abdomen: Soft nontender, nondistended Integumentary: No rashes, skin warm and dry Neurologic: Non-focal motor function Musculoskeletal: No gross bony deformities Anorectal: External exam with small circumferential tags with condylomatous appearance in the left anterolateral position. There is also a possible external opening to an anal fistula in the left anterolateral position with some heaped up tissue. Digital rectal examination with normal rectal tone and motion and heaped up tissue in the left anterolateral position approximately 1 cm from the anal verge concerning for a possible anal fistula. In left posterolateral midline there is a soft and fleshy mass consistent with an anal condyloma. Anoscopy : After TREY, the lubricated anoscope was placed in the anal canal and circumferential visualization performed with evidence of 8 mm sessile and fleshy anal condyloma in the left posterior lateral midline. There is heaped up tissue in the left anterior lateral midline but visualization was obscured due to stool and but was concerning for possible internal opening for a fistula. There are no other significant masses, lesions or strictures or proctitis. The scope was removed. This was tolerated well with no blood loss. Labs: I personally reviewed his labs from 10/10/2020 which demonstrated a CD4 count of 148. Assessment: Phil Chase Jr. is a 25 y.o. male with HIV and new anal condyloma of the anal canal and margin and possible anal fistula. Plan: We discussed the risks and benefits of proceeding to the operating room for a rectal examination under anesthesia with excision and fulguration of anal condyloma and possible fistulotomy versus setonfor an anal fistula. We discussed that given that his CD4 count is 148, he is at increased risk forwound complications as well as possible recurrence of his anal condyloma. I sent a message to Dr. Hardin, his Infectious Disease doctor, to touch base with the plan and ensure that he is ready for the operating room. However I think it is in his best interest to proceed with excision and fulguration given that the wounds would be minimal and that we would be able to treat this fistula at the same time. We reviewed the risks and benefits such as possible recurrence, infection, blood loss, incontinence, and he is willing to proceed. All questions answered to his satisfaction. Katlyn Wolff MD 10/29/2020 10:35 AM [employer] completed by using [facility] EHR Direct speaking software, therefore, transcriptionvariances may occur. documented in this encounter Plan of Treatment Not on file documented as of this encounter Visit Diagnoses Diagnosis Anal fistula- Primary Condyloma Condyloma acuminatum documented in this encounter Historical Medications * This list may reflect changes made after this encounter. triamcinolone (KENALOG) 0.1 % ointment Apply topically 2 (two) times a day 09/16/2019 4 sertraline (ZOLOFT) 50 mg tablet Take 50 mg by mouth daily 09/02/2019 1 nystatin 100,000 unit/mL suspension Take 500,000 Units by mouth 4 (four) times a day 10/06/2019 4 gabapentin (NEURONTIN) 300 mg capsule TAKE ONE CAPSULE BY MOUTH THREE TIMES DAILY 07/02/2020 4 dolutegravir-cameron ivudine (Dovato) 50-300 mg TAKE ONE TABLET BY MOUTH ONCE EVERY DAY 07/02/2020 4 added in this encounter Orders Case Request Count Last Ordered Date First Orde red Date CASE REQUEST OPERATING ROOM 1 10/29/2020 documented in this encounter Care Teams Cad Specialist Relationship Specialty Start Date End Date Henrique Hardin MD PCP - General Internal Medicine 10/14/20 10/26/22 documented as of this encounter
--- OUTSIDE RECORDS SUMMARY | 2024-08-10 03:35 | XMS_ITS | Encounter Summary ---
Author Organization [facility] Healthcare Address [address] [place] [id number] Care Team Providers Care Delivery Person Name Role Phone Henrique Hardin MD Primary Care Provider [phone]- [phone] Reason for Visit * Reason Comments PT Treatment Encounter Details Date Type Department Care Team (Late st Contact Info) Description 10/27/2020 4:00 PM CDT Therapy [facility] at [address] [id number] Sindy Akers, PT 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CMS/HCC) (Primary Dx); Right foot drop Social History Tobacco Use Types Packs/Day Years Used Date Smoking Tobacco: Never Assessed Sex and Gender Information Value Date Recorded Sex Assigned at Not on file 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 Right foot drop 736.79 M21.371 Patient Name and Birthday verified. Yes Subjective: Pt reports increased pain the the R inguinal area due to bulging hernia that he developed while lifting in college. HEP is going okay, no questions at this time. Objective: Improved gait mechanics walking into clinic with slower speed. Minor cueing for core strengthening exercises. Treatment Provided: Total Therapy Visits: 2 Insurance: Id [facility] Henrique Hardin MD Surgery: none Eval/Progress: 10/20/20 Visit: 11/11/20 POC: Media - 2x/week - 01/12/21 Sent Do Progress: 11/17/20 Precautions: HIV positive MD Specific Treatment: Involved Side: RIGHT Initials Date AB 10/20/20 AB 10/27/20 # of visits / Approved Start Time / End Time 9:00 / 9:55 14:02 / 14:30 Timed/Total Treatment Minutes Pain In / Pain Out 0 / 0 Inguinal canal POC Initial Eval LifeCycle Level 5, 3 min ROM/Stretching 1. DKTC 2. PPT 3. Core september 1. 30 2. Seated 10x10 1. 2x1' 2. Supine x10 to understand motion; x10 10 hold 3. x15 R/L Strength 1. Sit to stand 2. Leg press, seated 3. Step ups 1. 2x10 w/o band and x15 with green t-band 2. x15 165#; x10 215# 3. Forward and lateral 8 step x12 R/L cues to slow speed and increase glute activation to reduce lumbar compensation Balance/Gait activities 1. Side stepping 2. Tandem 3. Braiding 4. Backwards walking 1. x20 ft SPV 2. x20 ft CGA 3. x20 ft SPV 4. x20 ft CGA Gait FGA: 8 min x100 ft with cues to slow speed, increase R hip and knee flexion and heel strike, lauren glute activation x100 ft with cues to slow speed, increase R hip and knee flexion and heel strike, lauren glute activation Functional mobility 1. stairs 16x6 steps w/o handrails and step through pattern Pt education PT POC, goals, information on spinal cord injuries and his diagnosis, HEP, gait and stair mechanics Flexible AFO for R LE to reduce foot drop and help with gait mechanics and stability through R LE Issued HEP: 10/20/20: DKTC, sit to stand with band, PPT in sitting, cues to slow gait speed and focus on mechanics Pt. Goals: 1. Get back to exercising 2. Increase strength and flexibility Goals: STGs to be achieved in 4 weeks Start Date ___Treatment Goal 1. Pt Indep with Initial HEP - 2. Pt to achieve a score of at least 20/30 on the FGA and less than 40% impairment on the LEFS - 3. Pt reports no falls since onset of care - 4. Pt to improve R LE hip flexion to at least 4/5 - 5. Pt to demonstrate a lesser degree of gait deviations and improved R heel strike 6. Pt to maintain neutral pelvic/lumbar positioning with less than 2 verbal cues - LTGs to achieved in 12 weeks 1. Pt to be independent in final HEP and cardio program - 2. Pt to achieve score of at least 25/30 on the FGA and less than 30% impairment on the LEFS - 3. Pt to report no falls since onset of care - 4. Pt to maintain appropriate gait mechanics with ambulation on different surfaces and with light jogging - 5. Pt to achieve at least 4+/5 for all R LE MMT muscle groups - Therapist confirmed patient understanding of explanations and instructions at the end of therapy session: Yes Assessment: Pt tolerated session well with good understanding of exercises. Moderate cueing provided with step up forward and laterally to reduce over correction of hip adduction by the lumbar paraspinals causing a L hip shift with L LE step up. Cues throughout session to avoid L LE valgus. PT educated on benefits of an flexible AFO for short term use to assist with ambulation, balance, and reduction of back pain from compensation - pt verbalized understanding and taking information into consideration. Plan: Progress balance, posture training, and gait. Sindy Akers PT documented in this encounter Plan of Treatment Not on file documented as of this encounter Visit Diagnoses Diagnosis 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HCC)- Primary Other causes of myelitis Right foot drop Other acquired deformity of ankle and foot documented in this encounter Care Teams Delivery Person Relationship Specialty Start Date End Date Henrique Hardin MD PCP - General Internal Medicine 10/14/20 10/26/22 documented as of this encounter
--- OUTSIDE RECORDS SUMMARY | 2024-08-10 03:35 | XMS_ITS | Encounter Summary ---
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 1995 ICD-9-CM ICD-10-CM 1. 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 Right foot drop 736.79 M21.371 Patient Name and Birthday verified. Yes Subjective: Pt reports increased pain through his low back due to starting to lift over the weekendgetting up to 225# with squatting. Pt would like to continue with lifting but focus on form in therapy. He has been working on moving slower and not rushing through exercises or ADL's. Pt recently bought a treadmill Objective: mod cueing for core strengthening progression to avoid APT and lumbar extension Treatment Provided: Total Therapy Visits: 3 Insurance: [employer] Henrique Hardin MD Surgery: none Eval/Progress: 10/20/20 Visit: 11/11/20 POC: Media - 2x/week - 01/12/21 Sent Do Progress: 11/17/20 Precautions: HIV positive Specific Treatment: Involved Side: RIGHT Initials Date AB 10/20/20 AB 10/27/20 AB 11/02/20 # of visits / Approved Start Time / End Time 9:00 / 9:55 14:02 / 14:30 12:02 / 12:30 Timed/Total Treatment Minutes 25 Pain In / Pain Out 0 / 0 6 / 6 Inguinal canal 6 / 6 Low back POC Initial Eval LifeCycle Level 5, 3 min ROM/Stretching 1. DKTC 2. PPT 1. 2x30 2. Seated 10x10 1. 2x1' 2. Supine x10 to understand motion; x10 10 hold 1. x1' with rocking 2. 10x15 supine; 10x15 standing Strength 1. Sit to stand 2. Leg press, seated 3. Step ups 4. Core A. September B. Up/up, down/down C. Double leg lift 5. Heel raises 6. Toe raises 7. Ankle isolator 1. 2x10 w/o band and x15 with green t-band 2. x15 165#; x10 215# 3. Forward and lateral 8 step x12 R/L cues to slow speed and increase glute activation to reduce lumbar compensation 4. x15 R/L 4A. x10 R/L 3 hold 4B. x10 R/L 4C. With ball squeeze x10 3 hold 5. With UE support x15 3 hold with cues for core activation and neutral pelvis 6. x15 7. Small weight, placement 6/7 x10 Balance/Gait activities 1. Side stepping 2. Tandem [...] gait mechanics and stability through R LE Work on slowing movements and remembering posture and core activation to protect low back Issued HEP: 10/20/20: DKTC, sit to stand [...] the end of therapy session: Yes Assessment: Focused on progression of core strengthening and stability due to recent increased in low back pain. Pt required mod cueing for TA stabilization with marching and leg lifts to prevent excessive APT and lumbar extension. Improved lumbar relaxation and symptoms when stabilized - toleratedprogress well once cued. Increased difficulty with eccentric lowering during heel raises - max cueing for core activation and neutral pelvis. Increased fatigue with DF/toe raises. Reviewed benefits of flexible AFO for short term use - pt verbalized understanding. Plan: Progress balance, posture training, and gait. Sindy Akers PT documented in this encounter Plan of Treatment Not on file documented as of this encounter Visit Diagnoses Diagnosis 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HCC)- Primary Other causes of myelitis Right foot drop Other acquired deformity of ankle and foot documented in this encounter Care Teams Laundry Bag Punch Operator Relationship Specialty Start Date End Date Henrique Hardin MD PCP - General Internal Medicine 10/14/20 10/26/22 documented as of this encounter
--- OUTSIDE RECORDS SUMMARY | 2024-08-10 03:35 | XMS_ITS | Encounter Summary ---
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 lymph nodes are likely related to patient's HIV infection.. THORACIC SPINE: There are 12 rib-bearing thoracic vertebrae. The alignment of the thoracic spine is normal. There is no acute fracture. Vertebral bodies are normal in height without compression fractures. Intervertebral disk heights are normal. There is no spinal canal stenosis. The facets are normal. The thoracic aorta is normal. No soft tissue abnormality is identified. LUMBAR SPINE: The alignment of the lumbar spine is normal. There is no acute fracture. Vertebral bodies are normal in height without compression fractures. Intervertebral disk heights are normal. There is no spinal canal stenosis. The facets are normal. The abdominal aorta is normal. There are multiple round perirectal lymph nodes, which are prominent. The largest measures 1.4 x 9.6 cm (series 4 image 270).. Impression: 1. No acute intracranial abnormality. 2. No evidence of acute fracture in the cervical, thoracic, or lumbar spine. 3. Multiple prominent perirectal lymph nodes. These may be seen in the setting of proctitis or possibly a rectal neoplasm. Recommend proctoscopy as clinically warranted. Dictated by: Tarik Ankush Assael, M.D. The radiology attending physician has personally reviewed this study, and had reviewed and/or edited this written report and agrees with it. Electronically signed by: Agatha Castellano M.D. Assessment and plan: Painless rectal bleeding Assessment & Plan Has been going on for 2 months, mostly after straining from constipation Painless Randomly occurring occassionally No other alarming symptoms such as jaundice or weight loss Currently asymptomatic Hg is normal Will start miralax Will need eval as OP Will provide referral to GI clinic Skin lesion Assessment & Plan Looks like psoriasis given lesion distribution, lack of itchiness/pain/weeeping, and appearance, however, given his HIV status and non compliance with therapy, and low count this could be related to HIV Recommend that pt calls his ID MD for a an office visit for follow up Will reach out to the to assist the pt with getting established with a local provider HIV (human immunodeficiency virus infection) (HCC) Assessment & Plan Poor compliance with meds CD4 pct 6 VL detectable as of 10/27/22 Resume home Biktarvy Follow up with the ID provider as OP The rest of the plan is per the psych service. --------- Portions of the record may have been created with voice recognition software. Occasional wrong-word or '[id number]' substitutions may have occurred due to the inherent limitations of voice recognition software. Read the chart carefully and recognize, using context, where substitutions have occurred. Gee Ayers MD 10/30/2022 1:20 PM * Jaimee Martinez MD - 10/27/2022 8:04 PM CDT [facility] History and Physical Date of Evaluation: 10/28/22 Sex: male Date of : 1995 Consulting provider: Consults Trauma Level 2 Assessment/Plan: Manuel Chase is a 27y M with hx poorly controlled HIV, DM2, RIH, MDD, now presenting s/p self-induced fall down 20 steps, +HS, +LOC. Ambulated after. Reporting pain to R parietal scalp, R lateral chest, R hip, decreased sensation and mild weakness to R foot. Continues to report SI. CT head/CAP/CTL spine, CXR, PXR neg. 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 Physician requesting consult: Elkin Fisher MD with the emergency department has asked that we see Manuel Chase for evaluation following traumatic injury. Method of transport: Ambulance Transported: from Scene Fall/Jump Fall/Jump: Yes Approximate Height (feet): >20 Feet Fall/Jump from: top od steps Object Landed upon: Other (Comment) (wood) Loss of consciousness: Yes Area affected: Back, Neck, Lower extremity(s) Chief Complaint: Self-induced fall, SI History of Injury/Accident, Subjective: Manuel Chase is a 27y M with hx poorly controlled HIV, DM2, RIH, MDD, now presenting s/p self-induced fall down 20 steps. Pt reports he had a series of bad life events including dropping out of school, losing his job, losing his house and poor social support which all led to his attempt at suicide today. He reportedly threw himself down 20 steps, +HS, +LOC. Awoke at bottom of steps and was able to ambulate after. He presented to a custodial and had told someone else of this occurrence and theycalled EMS to evaluate patient. He is reportedly unsheltered and has not been compliant with his Biktarvy due to his depression. Reports seeking care at [facility] and may have been admitted there prior for psychiatric reasons, but no records are available. On exam, he is reporting pain to R parietal scalp, R lateral chest, R hip, decreased sensation and mild weakness to R foot. Reportedly continue to have SI and told ED staff he would attempt to overdose. Allergies: No Known Allergies Medications: Abilify, Sertraline, Biktarv, Gabapentin Immunizations: Unknown Past Medical History: HIV, DM2, R inguinal hernia, MDD Hospitalized: Unknown, no records available Surgical History: None Family History: No family history on file. Social: Social History Tobacco Use Smoking status: Not on file Smokeless tobacco: Not on file Substance and Sexual Activity Drug use: Not on file Sexual activity: Not on file Alcohol Use: Unknown Frequency of Alcohol Consumption: 4 or more times a week Average Number of Drinks: 1 or 2 Frequency of Binge Drinking: Not on file Denies withdrawal symptoms prior Last Meal: Unknown SURVEY Primary Assessment Uncontrolled hemorrhage: No Airway: Patent Eye Opening: Spontaneous Best Verbal Response: Oriented Best Motor Response: Obeys commands [place] Coma Scale Score: 15 C-Spine Precautions: Yes Breathing Effort: Normal Trachea: Midline Central Pulse: Present Capillary Refill: Less than/equal to 3 seconds L Pupil Size (mm): 3 R Pupil Size (mm): 3 L Pupil Reaction: Brisk R Pupil Reaction: Brisk Patient exposed: Yes Warming Devices: Warm Blankets Secondary Assessment Head: No injury noted Pupils: Equal, Reactive right, Reactive left Face: No injury noted Neck: No injury noted Trachea: Midline C-spine step off: No Chest right: No injury noted Chest left: No injury noted Breath Sounds: Normal Breath Sounds Abdomen/Pelvis/Perineum injury : No injury noted Pelvic stability: Yes Extremities: Injury Site: RUE (rt hip pain) Log rolled: Yes Rectal tone: Present Resuscitation Phase & Emergency Treatments Pt received pain medication, C-collar Trauma Team: Attending: Jj Collado MD, PhD Yasir: Jaimee Martinez MD Consultants: (name of attending) IP CONSULT TO SOCIAL WORK REVIEW OF SYSTEMS General- no fevers, chills HEENT- no changes in vision, hearing, congestion. +BAY CV- no chest pain or palpitations Resp- no shortness of breath, no cough GI- no abdominal pain, nausea, vomiting - no pain with urination, urinary frequency or urgency MSK- +Pain to midline neck, R lateral chest, R hip Integument- no new rashes, lumps, or bumps. Abrasions to R hand Neuro- No changes in memory or balance Psych- +Depression, suicidal ideation Vitals Temp: 36.6 ??C (97.8 ??F) Pulse: 57 Resp: 14 BP: 107/61 SpO2: 98 % General NAD, awake, alert, oriented Neuro Moving all extremities, no focal deficits. Tender to palpation in midline C-spine and L-spine. Absent sensation in R forefoot, decreased strength with plantar/dorsiflexion Psych Appropriate mood and affect HEENT EOMI, conjunctiva pink, symmetric features Cardio Palpable pulses, skin well-perfused Pulm Breathing comfortably on room air. No increased work of breathing. GI soft, non-distended, non-tender Skin Note crusted lesions on bilateral palms, superficial abrasion to R palm Extremities Warm, well perfused, No edema. Pulses Palpable radial and DP BL SECONDARY DATA ED Trauma FAST Ultrasound Indications: None indicated Data Review: Lab Results Component Value Date WBC 4.3 10/27/2022 HGB 13.5 10/27/2022 HCT 44.0 10/27/2022 MCV 74.8 (L) 10/27/2022 LABPLAT 320 10/27/2022 Lab Results Component Value Date GLUCOSE 90 10/27/2022 CALCIUM 9.4 10/27/2022 SODIUM 137 10/27/2022 POTASSIUM 4.7 10/27/2022 CO2 30 10/27/2022 CHLORIDE 101 10/27/2022 BUNSER 12 10/27/2022 CREATININE 0.9 10/27/2022 Recent Results (from the past 36 hour(s)) CBC with auto differential Collection Time: 10/27/22 7:16 PM Result Value Ref Range WBC 4.3 3.8 - 9.9 K/cumm Hgb 13.5 13.0 - 17.5 g/dL Hct 44.0 38.9 - 50.3 % Plt 320 150 - 400 K/cumm MPV 9.6 9.1 - 12.3 fL RBC 5.88 (H) 4.30 - 5.80 M/cumm MCV 74.8 (L) 81.3 - 96.4 fL MCH 23.0 (L) 27.1 - 33.3 pg MCHC 30.7 (L) 32.3 - 35.7 g/dL RDW CV 19.8 (H) 11.1 - 14.9 % RDW SD 51.5 (H) 35.7 - 48.1 fL NRBC abs 0.00 0.00 - 0.01 K/cumm Comprehensive metabolic panel Collection Time: 10/27/22 7:16 PM Result Value Ref Range Sodium 137 135 - 145 mmol/L Potassium, pl 4.7 3.3 - 4.9 mmol/L Chloride 101 97 - 110 mmol/L CO2 30 22 - 32 mmol/L Anion gap 6 2 - 15 mmol/L BUN 12 8 - 25 mg/dL Creatinine 0.82 0.80 - 1.30 mg/dL Glucose 90 70 - 199 mg/dL Calcium 9.4 8.5 - 10.3 mg/dL Bilirubin, total 0.2 0.1 - 1.2 mg/dL Protein, pl 9.6 (H) 6.5 - 8.5 g/dL Albumin 4.1 3.5 - 5.0 g/dL Alk phos 94 40 - 130 Units/L ALT 24 7 - 55 Units/L AST 30 10 - 50 Units/L Type and screen Collection Time: 10/27/22 7:16 PM Result Value Ref Range ABO Rh A Positive [place], indirect Negative Differential, auto Collection Time: 10/27/22 7:16 PM Result Value Ref Range Neutrophil abs 2.0 1.7 - 6.5 K/cumm Imm gran abs 0.0 0.0 - 0.1 K/cumm Lymphocyte abs 1.7 0.8 - 3.3 K/cumm Monocyte abs 0.3 0.2 - 0.8 K/cumm Eosinophil abs 0.3 0.0 - 0.5 K/cumm Basophil abs 0.0 0.0 - 0.1 K/cumm Neutrophil pct 46.4 % Imm gran pct 0.2 % Lymphocyte pct 39.9 % Monocyte pct 6.7 % Eosinophil pct 6.3 % Basophil pct 0.5 % eGFR Collection Time: 10/27/22 7:16 PM Result Value Ref Range eGFR >90 90 - 130 mL/min/1.73 m2 POCT creatinine Collection Time: 10/27/22 7:33 PM Result Value Ref Range Creatinine POC 0.9 0.7 - 1.3 mg/dL T-helper cells (CD4) count Collection Time: 10/27/22 7:42 PM Result Value Ref Range CD4 pct 6 (L) 31 - 64 % CD4 Absolute 87 (L) 365 - 1,294 cells/mcL Check Sample Collection Time: 10/27/22 7:42 PM Result Value Ref Range ABO Rh A Positive Acetaminophen level Collection Time: 10/27/22 7:43 PM Result Value Ref Range Acetaminophen <5.0 mcg/mL Salicylate level Collection Time: 10/27/22 7:43 PM Result Value Ref Range Salicylate <9.0 mg/dL Ethanol Collection Time: 10/27/22 7:43 PM Result Value Ref Range Ethanol <10 <=10 mg/dL TSH reflex to free T4 Collection Time: 10/27/22 7:43 PM Result Value Ref Range TSH 2.14 0.30 - 4.20 mcIUnit/mL Drugs of Abuse Screen, Urine without Confirmation Collection Time: 10/27/22 8:13 PM Result Value Ref Range Amphetamine, ur [...] Not Detected CutOff 25 ng/mL Urine Creatinine 133 mg/dL Urinalysis reflex to microscopic and culture Urine Collection Time: 10/27/22 8:13 PM Specimen: Urine Result Value Ref Range Color, ur Straw Yellow Clarity, ur Clear Clear Specific gravity, ur 1.021 1.003 - 1.030 pH, urine 7.0 Protein, ur ql Trace Negative Glucose, ur ql Negative Negative Ketones, ur Negative Negative Bilirubin, ur Negative Negative Blood, ur Negative Negative Urobilinogen, ur <2.0 <2.0 mg/dL Nitrite, ur Negative Negative Leukocyte esterase, ur Negative Negative UA reflex comment Reflex conditions for microscopic UA and culture not met. Imaging: CT Recon Thoracic and Lumbar Spine W Contrast (C) Narrative: EXAMINATION: Noncontrast head CT CT of the cervical spine without contrast CT of the thoracic spine with contrast CT of the lumbar spine with contrast HISTORY: 27-year-old male with history of HIV, questionable spinal cancer, presenting after suicide attempt (patient self down stairs). TECHNIQUE: Noncontrast CT of the brain was performed with images acquired from skull base to vertex. Computed tomography of the cervical spine was performed without contrast according to standard protocol. Dedicated reconstructions of the thoracic and lumbar spine were generated using data from a CT of the chest, abdomen, and pelvis acquired with intravenous contrast according to standard protocol. COMPARISON: None available. FINDINGS: HEAD: Topogram demonstrates no lytic lesions or fractures. There is no acute intracranial hemorrhage. There is mild diffuse cerebral atrophy out of proportion for patient age, with ex vacuo dilatation of ventricles, likely sequela of HIV. No mass effect or midline shift is present. The hobbs-white matter differentiation is normal. There is mild mucosal thickening of the sphenoid sinuses. CERVICAL SPINE: There is reversal of curvature of the cervical spine. There is no acute fracture. Vertebral bodies are normal in height without compression fractures. Intervertebral disk heights are normal. There is no spinal canal stenosis. The craniocervical junction is normal. The facets are normal. The uncovertebral joints are normal without foraminal stenosis. Mildly prominent posterior cervical lymph nodes are likely related to patient's HIV infection.. THORACIC SPINE: There are 12 rib-bearing thoracic vertebrae. The alignment of the thoracic spine is normal. There is no acute fracture. Vertebral bodies are normal in height without compression fractures. Intervertebral disk heights are normal. There is no spinal canal stenosis. The facets are normal. The thoracic aorta is normal. No soft tissue abnormality is identified. LUMBAR SPINE: The alignment of the lumbar spine is normal. There is no acute fracture. Vertebral bodies are normal in height without compression fractures. Intervertebral disk heights are normal. There is no spinal canal stenosis. The facets are normal. The abdominal aorta is normal. There are multiple round perirectal lymph nodes, which are prominent. The largest measures 1.4 x 9.6 cm (series 4 image 270).. Impression: 1. No acute intracranial abnormality. 2. No evidence of acute fracture in the cervical, thoracic, or lumbar spine. 3. Multiple prominent perirectal lymph nodes. These may be seen in the setting of proctitis or possibly a rectal neoplasm. Recommend proctoscopy as clinically warranted. Dictated by: Tarik Stewart M.D. CT Head and Cervical Spine WO Contrast Narrative: EXAMINATION: Noncontrast head CT CT of the cervical spine without contrast CT of the thoracic spine with contrast CT of the lumbar spine with contrast HISTORY: 27-year-old male with history of HIV, questionable spinal cancer, presenting after suicide attempt (patient self down stairs). TECHNIQUE: Noncontrast CT of the brain was performed with images acquired from skull base to vertex. Computed tomography of the cervical spine was performed without contrast according to standard protocol. Dedicated reconstructions of the thoracic and lumbar spine were generated using data from a CT of the chest, abdomen, and pelvis acquired with intravenous contrast according to standard protocol. COMPARISON: None available. FINDINGS: HEAD: Topogram demonstrates no lytic lesions or fractures. There is no acute intracranial hemorrhage. There is mild diffuse cerebral atrophy out of proportion for patient age, with ex vacuo dilatation of ventricles, likely sequela of HIV. No mass effect or midline shift is present. The hobbs-white matter differentiation is normal. There is mild mucosal thickening of the sphenoid sinuses. CERVICAL SPINE: There is reversal of curvature of the cervical spine. There is no acute fracture. Vertebral bodies are normal in height without compression fractures. Intervertebral disk heights are normal. There is no spinal canal stenosis. The craniocervical junction is normal. The facets are normal. The uncovertebral joints are normal without foraminal stenosis. Mildly prominent posterior cervical lymph nodes are likely related to patient's HIV infection.. THORACIC SPINE: There are 12 rib-bearing thoracic vertebrae. The alignment of the thoracic spine is normal. There is no acute fracture. Vertebral bodies are normal in height without compression fractures. Intervertebral disk heights are normal. There is no spinal canal stenosis. The facets are normal. The thoracic aorta is normal. No soft tissue abnormality is identified. LUMBAR SPINE: The alignment of the lumbar spine is normal. There is no acute fracture. Vertebral bodies are normal in height without compression fractures. Intervertebral disk heights are normal. There is no spinal canal stenosis. The facets are normal. The abdominal aorta is normal. There are multiple round perirectal lymph nodes, which are prominent. The largest measures 1.4 x 9.6 cm (series 4 image 270).. Impression: 1. No acute intracranial abnormality. 2. No evidence of acute fracture in the cervical, thoracic, or lumbar spine. 3. Multiple prominent perirectal lymph nodes. These may be seen in the setting of proctitis or possibly a rectal neoplasm. Recommend proctoscopy as clinically warranted. Dictated by: Tarik Stewart M.D. CT Chest Abdomen Pelvis W Contrast Narrative: EXAMINATION: Computed tomography of the chest, abdomen and pelvis with intravenous contrast HISTORY: Suicide attempt. TECHNIQUE: Transaxial computed tomographic images of the chest, abdomen and pelvis were obtained with intravenous contrast according to the standard protocol after the uneventful administration of 68 mL Opti-Ray 350 intravenous contrast. COMPARISON: None. FINDINGS: Chest: There is no supraclavicular, axillary, mediastinal or hilar lymphadenopathy. The heart is normal in size. No pericardial effusion. There is mild residual thymic tissue in the anterior mediastinum. Mild bilateral gynecomastia. Small hiatal hernia. The lung windows show no confluent consolidation, pleural effusion or pneumothorax. There is no suspicious pulmonary nodule. Mild left lower lobe subsegmental atelectasis. Abdomen/Pelvis: The liver and gallbladder are normal. The spleen is normal. Pancreas and adrenal glands are normal. Kidneys enhance symmetrically. No hydronephrosis. Simple left renal cyst. Urinary bladder is normal. Fat and bowel-containing right inguinal hernia. There are mildly prominent lymph nodes along the superior rectal chain. No aggressive osseous lesion or acute fracture. Impression: 1. No evidence of visceral traumatic injury. 2. Nonspecific mildly prominent superior rectal chain lymph nodes. This could be correlated with proctoscopy if clinically warranted. Dictated by: Jorge Moran M.D. XR Pelvis 1 or 2 Views Narrative: EXAMINATION: XR CHEST 1 VIEW, XR PELVIS 1 OR 2 VIEWS HISTORY: Fall COMPARISON: None available. Impression: Chest: Lungs are clear without pneumonic consolidation or pulmonary edema. No pneumothorax or pleural effusion. Cardiomediastinal silhouette is within normal limits. Pelvis: Bilateral hips are in expected position on single view radiograph. No proximal femoral fracture. No displaced pelvic fracture. There are loops of bowel herniated into an enlarged scrotum. Dictated by: Romy Bartlett MD The radiology attending physician has personally reviewed this study, and had reviewed and/or edited this written report and agrees with it. Electronically signed by: Vincent Ezra Mellnick, M.D. XR Chest 1 View Narrative: EXAMINATION: XR CHEST 1 VIEW, XR PELVIS 1 OR 2 VIEWS HISTORY: Fall COMPARISON: None available. Impression: Chest: Lungs are clear without pneumonic consolidation or pulmonary edema. No pneumothorax or pleural effusion. Cardiomediastinal silhouette is within normal limits. Pelvis: Bilateral hips are in expected position on single view radiograph. No proximal femoral fracture. No displaced pelvic fracture. There are loops of bowel herniated into an enlarged scrotum. Dictated by: Romy Bartlett MD The radiology attending physician has personally reviewed this study, and had reviewed and/or edited this written report and agrees with it. Associated attestation - Jj Collado MD PhD - 10/30/2022 12:09 PM CDT I have seen and examined the patient on 10/27/2022. I agree with the findings and plan of care as documented in the resident's/fellow's note. and as discussed with the resident/fellow.. I saw the patient within 25 minutes of their arrival in the ED documented in this encounter Nursing Notes * Yelena Burrell RN - 11/07/2022 10:15 AM CDT Assumed care of the patient at 730. Initial assessment completed with the patient in the milieu seated at the table with a peer. He denies any thoughts to harm himself or others and any hallucinations. He reports anxiety 6/10 and depression 2/10. He reports hip pain 7/10. PRN medication for pain and anxiety added to his scheduled morning medications. Will continue to monitor and encourage participation in groups. * Yelena Burrell RN - 11/07/2022 10:15 AM CDT Patient discharged home at 1015. Patient ambulated to the exit with limp gait. Discharge instructions reviewed to include instructions for follow up appointments, and medications. Patient was given his belongings to include his clothing, cell phone, and credit card. Patient was taken to his placement in an Uber. * Desiree Goodman RN - 11/06/2022 11:37 PM CDT 2337: Patient asleep at this time. Trazodone deemed effective. * Desiree Goodman RN - 11/06/2022 10:37 PM CDT 2237: Patient not asleep at this time. Will continue to monitor. * Desiree Goodman RN - 11/06/2022 9:40 PM CDT 2140: Patient noted in the day area this afternoon talking with a co-patient. Patient was calm, cooperative and was alert and oriented x 4. Patient reported his depression as 6/10, and anxiety as 7/10 but denies si/hi/plan/intent and a/v hallucinations. Patient encouraged to notify staff should he began to have thoughts/plan/intent to harm self/others with understanding voiced. Patient denies current pain. Patient has been medication compliant with no noted side effects. Patient requested and received Trazodone 100 mg po for sleep. No problems voiced with appetite and Patient reported his last bowel movement as today. Patient is to be discharged tomorrow and medications are in the medication room. No acute distress noted. Will continue to monitor. * Desiree Goodman RN - 11/06/2022 9:37 PM CDT 2136: Patient given Trazodone 100 mg po for sleep. Will monitor for effectiveness. * Yelena Burrell RN - 11/06/2022 6:14 PM CDT Follow up assessment after reported increased anxiety and SI. Patient in milieu with peers participating in a game of [place] [employer]. Manuel is engaged and appropriate. Spoke with Manuel he states that he is feeling a little better. He states he spoke with [facility] and will discharge tomorrow morning. Will continue to monitor. * Yelena Burrell RN - 11/06/2022 4:22 PM CDT While applying the diclofenac cream to the patients hip he states that he is suicidal. Manuel stated that he cannot do this any longer and will overdose on his medications if he is discharged. Patient is tearful and expressed frustration over his current situation, he states he is not able to secure housing and is just tired. Provider and criminal justice social worker notified. Patient states he has elevated anxiety and accepted offer for prn medication. * Yelena Burrell RN - 11/06/2022 11:57 AM CDT Reassessed patient for reported pain and anxiety at 1000 patient reports his anxiety has decreased but his pain remains the same. Discussed new provider orders for diclofenac cream for his hip pain he verbalized understanding. * Yelena Burrell RN - 11/06/2022 9:47 AM CDT Assumed care of patient at 0720. Pt assessed in common area, seated at a table with his peers. Pt was pleasant, and cooperative with the assessment. Manuel denies any thoughts to harm himself or others and any hallucinations. He does report anxiety 7/10 and depression 2/10. Pt reported right hip pain 6/10 medicated with prn medication as ordered. He was also given hydroxyzine for reported anxiety level. PT received his scheduled morning medications. Will continue to monitor and encourage participation in groups. * Amira Juan RN - 11/05/2022 10:26 PM CDT Patient appears to be sleeping in his bed, all PRN's effective at this time. Trazodone PRN producedsleep for the patient and the Naproxen and Atarax PRNs allowed patient to fall asleep. * Amira Juan RN - 11/05/2022 9:26 PM CDT Assumed care of Manuel Chase at 1915. Upon assessment He was sitting at a table with peers. He was calm,cooperative, and very pleasant. He denied SI, HI, and AVH. He rated his depression at a 2, his anxiety at a 7, and his pain at a 5. Patient stated he would like to have something for sleep. Site Worker offered and patient accepted Atarax 25 mg po for his anxiety he rates at a 7 and trazodone 100 mg po to aid in him getting some sleep. Also requesting something for his right hip pain he rates eatson 5. Offered and patient accepted Naproxen 250 mg po for his hip pain. Will follow up on both PRN'sin one hour for effectiveness. He stated his goal for the night was to get a good night's rest.. Nos/s of Covid-19 symptoms noted or reported. Manuel Chase denied all other issues. [place] was present on patient. Will continue to monitor q15 minutes as ordered. * Win Ardon RN - 11/05/2022 12:23 PM CDT Received report and assumed care. Upon assessment @8:21am patient was noted lying down in bed resting. Patient is alert and oriented x4. Patient answered all assessment questions appropriately. Patient states depression is a 3 on a scale of 0-10. Patient states anxiety is an 8 on a scale of 0-10. PRN Atarax administered for anxiety. Refer to MAR. Patient denies suicidal/homicidal ideations. Patient denies A/V/H. Patient complains of right hip pain. Patient states pain level is a 6 on a scale of0-10. PRN Tylenol administered for pain. Refer to MAR. Patient states last BM was on 11/04/2022. Patient was compliant with vital signs and morning medications. Patient has been in milieu throughout the morning watching television and interacting with others. Reassessment of pain and anxiety was done @10:10am. Patient states pain remains a 6 on a scale of 0-10. Patient states, It's just tylenol, I need something stronger, something you cannot get over the counter, but I'll talk to my doctor when I leave here. Patient states anxiety decreased to a 6 yonis scale of 0-10. Patient at this time remains in milieu watching television and interacting with other. Patient is calm, cooperative, and compliant. Patient voices no complaints or concerns. Staff remains nearby monitoring making safety rounds every 15 minutes to maintain patient safety. No acute distress is observed. Will continue to monitor. [place] remains on and paired. * Amira Juan RN - 11/04/2022 10:25 PM CDT Patient appears to be sleeping in his bed, both PRN's effective at this time. Trazodone PRN produced sleep for the patient and the Naproxen PRN allowed patient to fall asleep. * Amira Juan RN - 11/04/2022 9:25 PM CDT Assumed care of Manuel Chase at 1915. Upon assessment He was sitting at a table with peers. He was calm,cooperative, and very pleasant. He denied SI, HI, and AVH. He rated his depression at a 4, his anxiety at a 7, and his pain at a 5. Patient stated he would like to have something for sleep. Site Worker offered and patient accepted Atarax 25 mg po for his anxiety he rates at a 7 and trazodone 100 mg po to aid in him getting some sleep. Will follow up on both PRN's in one hour for effectiveness. He stated his goal for the night was to get a good night's rest.. No s/s of Covid-19 symptoms noted or reported. Manuel Chase denied all other issues. [place] was present on patient. Will continue to monitor q15 minutes as ordered. * Tabitha Linn RN - 11/04/2022 5:53 PM CDT Upon reassessment of PRN hydroxyzine patient reports anxiety 6/10 * Tabitha Linn RN - 11/04/2022 4:23 PM CDT 1623: patient requested hydroxyzine for an anxiety level 8/10. * Tabtiha Linn RN - 11/04/2022 10:17 AM CDT 1017: upon reassessment of PRN hydroxyzine, patient reports anxiety a 2/10. * Tabitha Linn RN - 11/04/2022 10:16 AM CDT 1016: upon reassessment of PRN tylenol, patient reports his pain is now a 2/10. * Tabitha Linn RN - 11/04/2022 9:17 AM CDT 0917: Patient requested PRN hydroxyzine for anxiety level of 7/10. * Tabitha Linn RN - 11/04/2022 9:16 AM CDT 0916 Patient request PRN tylenol for hip pain 9/10. * Tabitha Linn RN - 11/04/2022 8:05 AM CDT 0805:Assumed care of Manuel Chase at 0730. Upon assessment He was in his room awake, sitting on the side of his bed. He was calm and cooperative. He denied SI, HI, AVH, but rated his anxiety 7/10,depression 2/10, and (R) hip pain 9/10. He stated his goal for the day was to maintain a good mental state . Reported last BM was on 11/03/22. No s/s of Covid-19 symptoms noted or reported. Manuel Chase denied all other issues. [place] was present on patient. Will continue to monitor q15 minutes as ordered. * Amira Juan RN - 11/03/2022 10:45 PM CDT Patient appears to be sleeping in his bed, both PRN's effective at this time. Trazodone PRN produced sleep for the patient and the Naproxen PRN allowed patient to fall asleep. * Amira Juan RN - 11/03/2022 9:45 PM CDT Called the shift lab technician Internal Medicine number and received an order of Naproxen 250 mg po BID. Offered to patient and patient accepted Naproxen 250 mg po for his pain rating of a 5 from his left hip. Will follow up in one hour for effectiveness. * Amira Juan RN - 11/03/2022 9:17 PM CDT Patient lying in his bed, due to his hip pain, patient is unable to get comfortable and fall asleep. He does however rate his anxiety at a 2 now, Atarax PRN effective at this time. Informed patient Iwould call the doctor now and patient insisted I get everyone else done first. Informed him I had 2more vital signs to obtain and then I could call the doctor. Trazodone PRN ineffective at this time. * Amira Juan RN - 11/03/2022 8:17 PM CDT Assumed care of Manuel Salvatore at 1915. Upon assessment He was sitting at a table with peers. Site Worker was greeted with a big smile and informed he's so glad to have me as a nurse. He was calm,cooperative, and very pleasant. He stated he is feeling so much better emotionally but his hip was still bothering him. He told me the Acetaminophen wasn't really helping him and he rated his hip pain at a 5. I informed patient I would call the doctor and see about getting him some Naproxen. He told me to go ahead and finish my med pass with the other patients and he would gladly wait. I told him as soonas I was done I would call. He denied SI, HI, and AVH. He rated his depression at a 2, his anxiety at a 7, and his pain at a 5. Patient stated he would like to have something for sleep. Site Worker offered and patient accepted Atarax 25 mg po for his anxiety he rates at a 7 and trazodone 100 mg po to aid in him getting some sleep. Will follow up on both PRN's in one hour for effectiveness. He stated his goal for the night was to get some rest.. No s/s of Covid-19 symptoms noted or reported. Manuel velez denied all other issues. [place] was present on patient. Will continue to monitor q15 minutesas ordered. * Sue Ordoñez RN - 11/03/2022 5:00 PM CDT Pt reports feeling better after receiving zyrtec for allergies. Pt denies SOB, rhinorrhea, and bodyaches. * Sue Ordoñez RN - 11/03/2022 12:30 PM CDT Pt has c/o SOB, rhinorrhea, and generalized body aches. Pt verbalizes wanting to take a COVID test.MD notified and zyrtec was ordered for suspected allergies. MD will be notified throughout the day if symptoms worsen or if new symptoms arise. * Sue Ordoñez RN - 11/03/2022 9:45 AM CDT Assumed care of Manuel Chase at 0730. Pt is currently playing cards and socializing with other peers out on the milieu. He is A&Ox4 and appears calm/content. Pt endorses 7/10 anxiety and 5/10 right hip pain and denies depression, SI/HI, and AVH. PRN atarax and tylenol given for increased anxiety and pain. His last BM was yesterday, and pt initially refused his miralax, but requested it at 1355 because he is beginning to feel constipated. Pts speech is appropriate and thought process appears linear/organized. Overall interaction is assertive. Pt is compliant with morning assessment/medications and does not have any other complaints at this time. Will continue to monitor pt and 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. * Kwadwo Navarro RN - 11/02/2022 9:26 PM CDT Patient currently in room sleeping. Trazodone effective. Will continue to monitor. * Kwadwo Navarro RN - 11/02/2022 9:12 PM CDT Patient reports no pain. Tylenol effective. Will continue to monitor. * Kwadwo Navarro RN - 11/02/2022 8:26 PM CDT Patient given trazodone 100 mg for sleep. WIill continue to monitor. * Kwadwo Navarro RN - 11/02/2022 8:12 PM CDT Patient given tylenol for right hip pain with a score of 4/10. Will continue to monitor. * Kwadwo Navarro RN - 11/02/2022 7:47 PM CDT Patient was in dayroom at shift change and at time of assessment. Patient was compliant with takingmedications. Patient reported anxiety 7/10 and denied depression, AVH, SI, and HI. Patient reportedright hip pain with a score of 4. Last bowel movement was today 11/02/22. Patient requested trazodone for sleep. Will continue to monitor with every 15 minute checks. * Juan Lima RN - 11/02/2022 5:41 PM CDT Manuel requested a PRN for anxiety which he is currently rating 7/10. Hydroxyzine was administeredper PRN order. Will continue to monitor patient and pass report to PM nursing staff. * Juan Lima RN - 11/02/2022 10:30 AM CDT Manuel is a 27 y.o. male patient admitted 10/27/2022 for the treatment of Depressive disorder. The patient's legal status is voluntary. He has No Known Allergies. Our patient is found appearing calm in the milieu today. Manuel is compliant with vital signs, morning assessment, & medications. The patient is wearing a beacon device. He complains of 6/10 pain in his right hip for which he is offered and administered PRN acetaminophen ; the patient denies any symptoms of COVID. The patient states that his appetite has been good, adding: I'm always hungry. I don't know if it's the medicine or what. When asked what brought him to the hospital, he states: for my anxiety. Dealing with depression. I lost my job of 3 years recently, then I lost my place because of that. And just a lack of support. And then my partner of 10 years gave me HIV. So I've just been going through a lot of hits recently. 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 Iwas in my head. ) Total Hours of Sleep: 7.6 Patient Reported Depression and Anxiety Patient reported depression 0-10 : 2 Patient reported anxiety 0-10 : 6 Thought Content Delusions: No delusions Hallucinations: None (pt denies; pt responds uh...no when asked whether or not he has ever experienced AVH in the past) Ambivalence: Yes Suicidal, Homicidal, and Self Harm Assessment Currently suicidal? : No Currently Homicidal? : No Self Harm Behaviors : None Self Harm Thoughts With Intent: None Self Harm Thoughts Without Intent: None Orientation and Intellectual Functioning Concentration: Good (good to fair) Memory: Good Insight: Good (good to fair) Judgement: Good Decision Making : Good Orientation Level: Oriented X4 Level of Consciousness: Alert Psychosocial Assessment Patient Complaints: None Facial Expression: Appropriate Affect: Calm; Sad Mood: Euthymic; Hopeful ( I'm in better spirits; I'm battling with myself today. I'm telling myselfI'm worthy and that things are going to be good. ) Eye Contact: Good Exhibited Behavior: Calm; Cooperative; Compliant with treatment/expectations Interaction: Other (Comment) (appropriate) Motor Activity: WDL Appearance/Hygiene: Appropriate/neat/clean Language and Speech Speech: Appropriate He has demonstrated appropriate interactions with staff and peers. The patient contracts for the safety of self and others at this time, and agrees to speak with a member of the staff if he feels he is no longer able to remain safe on the unit. Plan of Care Review Plan of Care Reviewed With: Patient Clinical Goals for the Shift: to maintain the mental state that I'm in right now When asked about his personal strengths, he stated: communication. All questions and concerns were addressed. Will continue to encourage treatment goals and monitor for safety. * Kwadwo Navarro RN - 11/01/2022 9:36 PM CDT Patient currently lying and resting in room. Trazodone appears to be effective. Will continue to monitor. * Kwadwo Navarro RN - 11/01/2022 9:21 PM CDT Tylenol appears effective. Patient reports a decrease in pain with a score of 3/10. Will continue to monitor. * Kwadwo Navarro RN - 11/01/2022 8:36 PM CDT Patient given trazodone 100 mg for sleep. Will continue to monitor. * Kwadwo Navarro RN - 11/01/2022 8:21 PM CDT Patient given tylenol 500 mg for right hip pain. Will continue to monitor. * Kwadwo Navarro RN - 11/01/2022 7:49 PM CDT Patient was in dayroom at shift change and at time of assessment. Patient did not have scheduled medications. Patient reports anxiety 7/10 and denied depression, AVH, SI, and HI. Patient denied pain.Last bowel movement was date. Patient requested trazodone for sleep. Will continue to monitor with every 15 minute checks. * Mary Gallegos RN - 10/31/2022 9:39 PM CDT Patient complained of anxiety, pain and insomnia. Patient given Tylenol, Atarax and Trazodone for these complaints. Upon reassessment patient was resting comfortably with eyes closed and appears sleeping. * Mary Gallegos RN - 10/31/2022 7:32 PM CDT Received report from offgoing RN and assumed care of the patient. Patient calm and cooperative withPM assessment. Denies AVH or SI/HI. Patient complaining of right hip pain 8/10, anxiety 8/10 and depression 4/10. Patient compliant with treatment plan. RN educated patient on communicating needs to staff. Will continue to monitor. * Amira Juan RN - 10/31/2022 10:13 AM CDT Patient up in the dining room watching a movie with peers. He rates his pain level at a 2 now and his anxiety level at a zero, both PRN's effective. * Amira Juan RN - 10/31/2022 9:13 AM CDT Assumed care of Manuel Chase at 1915. Upon assessment He was lying in his bed and appeared to beasleep. After calling out his name he responded. He was calm and cooperative. He denied SI, HI, andAVH. He rated his depression a 3, his anxiety an 8, and his pain a 5. Offered and patient accepted Acetaminophen 500 mg po for his pain level of a 5 and also offered and patient accepted Atarax 10 mgpo for his anxiety rated a 8. Will follow up in one hour for effectiveness.He stated his goal for the night was to maintain a healthy mental state. No s/s of Covid-19 symptoms noted or reported. Manuel Chase denied all other issues. [place] was present on patient. Will continue to monitor q15 minutes as ordered. * Yanet Canada RN - 10/31/2022 1:48 AM CDT Pt sitting in milieu and watching TV upon assessment. Pt presents somewhat anxious, fidgety, and pleasant. Pt endorses 8/10 anxiety, 5/10 depression, and denies SI/HI/AVH. Pt rates pain 7/10 in his right hip and also reports trouble sleeping. Pt provided prn tylenol for pain, prn atarax for anxiety, and prn trazodone for sleep. Upon reassessment, pt was resting comfortably and appeared to be asleep. No other remarkable events. * Yanet Canada RN - 10/30/2022 12:55 AM CDT Manuel was laying in bed upon assessment. Pt presents polite, appropriate, and somewhat fidgety. Pt was reassessed on his pain as he received prn tylenol from previous nurse, denies any improvement in his right hip. Pt describes this pain as a nerve, like shooting pain. Pt denies SI/HI/AVH and discusses how he had many stressors that all came to a head in his life prior to admission. Pt displays remorse for his actions and displays hopefulness for the future, stating, I'll get back on my feet again. Pt endorses 6/10 depression and 10/10 anxiety, as well as trouble sleeping. Pt was given prn trazodone for sleep and prn atarax for anxiety. Upon reassessment, pt appeared to be asleep. No other remarkable events. documented in this encounter ED Notes * Laura Garrison MD - 10/29/2022 7:27 AM CDT Transition of Care Note After a detailed discussion of the patient's case and ongoing management with Dr. Paulino, I am assuming care of this patient, who is, in short, a 27 y.o. male with PMH of HIV not on antiretrovirals here with suicide attempt by throwing self down stairs. Trauma workup has been negative. Awaiting voluntary admission to [facility] and plan for psychiatry consultation if patient changes mind about staying. Disposition: Admit Impression: 1. Suicide attempt (HCC) 2. 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 SW contacted [facility] ( ) - no available beds; [facility] Central Intake ( ) - no available beds; and [facility]ake ( ) - no available beds. [employer] updated irrigation equipment installer. No further assistance needed at this time, Liset Moy LCSW. * Carmelo Paulino MD PhD - 10/28/2022 11:09 PM CDT 11:09 PM Assumed care from Dr. Faustin. PMH HIV (not on meds), PSA. To ED w/ SI and plan. Did throw self down stairs. Has completed trauma evaluation w/o evident acute injury, so cleared medically. Voluntary admit to [facility], pending availablein-pt bed. No past medical history on file. No past surgical history on file. Labs Reviewed CBC WITH AUTO DIFFERENTIAL - Abnormal Result Value WBC 4.3 Hgb 13.5 Hct 44.0 Plt 320 MPV 9.6 RBC 5.88 (*) MCV 74.8 (*) MCH 23.0 (*) MCHC 30.7 (*) RDW CV 19.8 (*) RDW SD 51.5 (*) NRBC abs 0.00 COMPREHENSIVE METABOLIC PANEL - Abnormal Sodium 137 Potassium, pl 4.7 Chloride 101 CO2 30 Anion gap 6 BUN 12 Creatinine 0.82 Glucose 90 Calcium 9.4 Bilirubin, total 0.2 Protein, pl 9.6 (*) Albumin 4.1 Alk phos 94 ALT 24 AST 30 T-HELPER CELLS (CD4) COUNT - Abnormal CD4 pct 6 (*) CD4 Absolute 87 (*) URINALYSIS AND REFLEX TO MICROSCOPIC AND CULTURE Color, ur Straw Clarity, ur Clear Specific gravity, ur 1.021 pH, urine 7.0 Protein, ur ql Trace Glucose, ur ql Negative Ketones, ur Negative Bilirubin, ur Negative Blood, ur Negative Urobilinogen, ur <2.0 Nitrite, ur Negative Leukocyte esterase, ur Negative UA reflex comment Value: Reflex conditions for microscopic UA and culture not met. Narrative: Urine pH is affected by diet, medications, systemic acid-base disturbances, and renal tubular function. pH may affect urinary stone formation. For example, urine pH below 6.0 may help reduce the tendency for calcium phosphate stones and pH greater than 6.0 may reduce the tendency for uric acid stone formation. Source: [facility].Last revised 08-02-2017 DRUGS OF ABUSE SCREEN, URINE WITHOUT CONFIRMATION Amphetamine, ur Not Detected Barbiturates, ur Not Detected Benzodiazepines, ur Not Detected Cannabinoids, ur Not Detected Cocaine, ur Not Detected Fentanyl, Ur Not Detected Methadone, ur Not Detected Opiates, ur Not Detected Oxycodone, ur Not Detected Phencyclidine, ur Not Detected Urine Creatinine 133 Narrative: Drug of Abuse screening is performed by immunoassay for medical purposes only. This is not to be used for Pain Management purposes. TYPE AND SCREEN ABO Rh A Positive [place], indirect Negative Narrative: Has the patient had Daratumumab or Isatuximab in the past 6 months?->Unknown B CHECK SAMPLE ABO Rh A Positive DIFFERENTIAL AUTO Neutrophil abs 2.0 Imm gran abs 0.0 Lymphocyte abs 1.7 Monocyte abs 0.3 Eosinophil abs 0.3 Basophil abs 0.0 Neutrophil pct 46.4 Imm gran pct 0.2 Lymphocyte pct 39.9 Monocyte pct 6.7 Eosinophil pct 6.3 Basophil pct 0.5 ACETAMINOPHEN LEVEL Acetaminophen <5.0 SALICYLATE LEVEL Salicylate <9.0 ETHANOL Ethanol <10 TSH REFLEX TO FREE T4 TSH 2.14 EGFR eGFR >90 HIV-1 RNA, QUANTITATIVE, PCR POCT CREATININE - DEVICE POCT CREATININE - DEVICE Creatinine POC 0.9 MRI Spine Total Complete W WO Contrast ED Interpretation EXAMINATION: Magnetic resonance imaging (MRI) of the cervical spine without and with contrast Magnetic resonance imaging (MRI) of the thoracic spine without and with contrast Magnetic resonance imaging (MRI) of the lumbar spine without and with contrast HISTORY: Fall, left lower extremity weakness. TECHNIQUE: Multiplanar multi-weighted MRI of the entire spine was performed without and with intravenous contrast using the standard total spine protocol. Contrast information: 14 mL gadoterate meglumine COMPARISON: None available. FINDINGS: CERVICAL SPINE: There is straightening of normal cervical lordosis. Vertebral bodies demonstrate normal signal intensity on all sequences. No acute fracture is identified; however, if trauma is suspected, a CT scan would be a more sensitive examination for fractures. The craniocervical junction is normal. The visualized portions of the skull base and the posterior fossa are normal. The spinal cord demonstrates normal signal int ensity on all sequences. Intervertebral disks have normal height and signal intensity. There are noannular fissures identified. No soft tissue abnormality is identified. Normal signal voids are present in the vertebral arteries. See dedicated CT cervical spine for evaluation of the cervical soft tissues. Multiple prominent lymph nodes are noted. THORACIC SPINE: The alignment of the thoracic spine is normal. Vertebral bodies demonstrate normal signal intensityon all sequences. There are no compression fractures. The spinal cord demonstrates normal signal intensity on all sequences. Intervertebral disks have normal height and signal intensity. See dedicated CT thorax for evaluation the chest. The aorta is normal. There are no areas of abnormal contrast enhancement. The disks are normal in configuration. There is no facet arthropathy. There is no neuroforaminal stenosis. There is no spinal canal stenosis. LUMBAR SPINE: The alignment of the lumbar spine is normal. Vert ebral bodies demonstrate normal signal intensity on all sequences. There are no compression fractures. The conus medullaris terminates at the level of L1-L2. The distal spinal cord signal intensity is normal. Intervertebral disks have normal height and signal intensity. There are no annular fissures identified. Limited see dedicated CT for evaluation of the abdomen/pelvis. The aorta is normal. There are no areas of abnormal contrast enhancement. IMPRESSION: No acute osseous abnormality. No cord signal abnormality or abnormal enhancement. Final Result No acute osseous abnormality. No cord signal abnormality or abnormal enhancement. Dictated by: Elton Justice MD The radiology attending physician has personally reviewed this study, and had reviewed and/or edited this written report and agrees with it. Electronically signed by: Agatha Castellano M.D. CT Chest Abdomen Pelvis W Contrast Final Result 1. No evidence of visceral traumatic injury. 2. Nonspecific mildly prominent superior rectal chain lymph nodes. This could be correlated with proctoscopy if clinically warranted. Dictated by: Jorge Moran M.D. The radiology attending physician has personally reviewed this study, and had reviewed and/or edited this written report and agrees with it. Electronically signed by: Dimas Fung M.D. CT Head and Cervical Spine WO Contrast Final Result 1. No acute intracranial abnormality. 2. No evidence of acute fracture in the cervical, thoracic, or lumbar spine. 3. Multiple prominent perirectal lymph nodes. These may be seen in the setting of proctitis or possibly a rectal neoplasm. Recommend proctoscopy as clinically warranted. Dictated by: Tarik Stewart M.D. The radiology attending physician has personally reviewed this study, and had reviewed and/or edited this written report and agrees with it. Electronically signed by: Agatha Castellano M.D. CT Recon Thoracic and Lumbar Spine W Contrast (C) Final Result 1. No acute intracranial abnormality. 2. No evidence of acute fracture in the cervical, thoracic, or lumbar spine. 3. Multiple prominent perirectal lymph nodes. These may be seen in the setting of proctitis or possibly a rectal neoplasm. Recommend proctoscopy as clinically warranted. Dictated by: Tarik Stewart M.D. The radiology attending physician has personally reviewed this study, and had reviewed and/or edited this written report and agrees with it. Electronically signed by: Agatha Castellano M.D. XR Pelvis 1 or 2 Views Final Result Chest: Lungs are clear without pneumonic consolidation or pulmonary edema. No pneumothorax or pleural effusion. Cardiomediastinal silhouette is within normal limits. Pelvis: Bilateral hips are in expected position on single view radiograph. No proximal femoral fracture. No displaced pelvic fracture. There are loops of bowel herniated into an enlarged scrotum. Dictated by: Romy Bartlett MD The radiology attending physician has personally reviewed this study, and had reviewed and/or edited this written report and agrees with it. Electronically signed by: Tin Da Silva M.D. XR Chest 1 View Final Result Chest: Lungs are clear without pneumonic consolidation or pulmonary edema. No pneumothorax or pleural effusion. Cardiomediastinal silhouette is within normal limits. Pelvis: Bilateral hips are in expected position on single view radiograph. No proximal femoral fracture. No displaced pelvic fracture. There are loops of bowel herniated into an enlarged scrotum. Dictated by: Romy Bartlett MD The radiology attending physician has personally reviewed this study, and had reviewed and/or edited this written report and agrees with it. Electronically signed by: Tin Da Silva M.D. Vitals: 10/28/22 0230 10/28/22 0300 10/28/22 0330 10/28/22 1716 BP: 128/50 107/61 133/65 122/59 BP Location: Right arm Pulse: 54 57 56 57 Resp: 13 14 12 18 Temp: 36.7 ??C (98.1 ??F) TempSrc: Oral SpO2: 99% 98% 100% 100% Weight: Height: PROGRESS NOTES/ED COURSE Medical Decision Making Amount and/or Complexity of Data Reviewed Labs: ordered. Radiology: ordered and independent interpretation performed. Decision-making details documented in ED Course. Risk OTC drugs. Prescription drug management. Decision regarding hospitalization. DIAGNOSES: Suicide attempt (HCC) Right hip pain Carmelo Paulino MD PhD 10/28/2022 11:09 PM Carmelo Paulino MD PhD 10/28/22 2310 * Isela Benson RN - 10/28/2022 12:05 AM CDT Bed: ED1-04 Expected date: Expected time: Means of arrival: Comments: 1-3 Isela Benson RN 10/28/22 0005 * Mishel Andre RN - 10/27/2022 9:54 PM CDT Bed: ED1-03 Expected date: Expected time: Means of arrival: Comments: 1r Mishel Andre RN 10/27/224 * Elkin Fisher MD - 10/27/2022 7:22 PM CDT HPI Chief Complaint Patient presents with Fall 27-year-old male past medical history of depression, HIV (not consistently taking GUPTA), ?spinal cancer presents to the emergency department after a suicide attempt done this morning. EMS and patientprovides history the patient threw himself down 24 steps in an attempt to end his life early this morning. He impacted primarily on his right hip and has had right hip pain however also had loss of consciousness and brief amnesia to the event. He continues to have suicidal ideation with the plan tooverdose. Patient History: Patient Active Problem List Diagnosis Date Noted HIV (human immunodeficiency virus infection) ([facility]) 10/30/2022 Skin lesion 10/30/2022 Painless rectal bleeding 10/30/2022 Suicidal ideation 10/29/2022 Suicide attempt ([facility]) 10/28/2022 Past Medical History: Diagnosis Date HIV (human immunodeficiency virus infection) ([facility]) History reviewed. No pertinent surgical history. Family History Family history unknown: Yes Social History Tobacco Use Smoking status: Former Types: Cigarettes Passive exposure: Current Smokeless tobacco: Never Vaping Use Vaping Use: Unknown Substance and Sexual Activity Alcohol use: None Drug use: Yes Frequency: 3.0 times per week Types: Alcohol, Marijuana Sexual activity: Yes Partners: Male Social History Social History Narrative Pt was recently fired from his job, ended a relationship, lost his home, and has family stressors. Review of Systems Review of Systems Unable to perform ROS: Acuity of condition Physical Exam ED Triage Vitals Temp Pulse Resp BP SpO2 10/27/22191610/27/22191610/27/22191610/27/22191610/27/221916 36.6 ??C (97.8 ??F) 55 18 (!) 165/116 100 % Temp src Heart Rate Source Patient Position BP Location FiO2 (%) 10/27/22191610/28/22 1716 10/27/22193110/27/221931 -- Axillary Monitor Lying Right arm Height Height Method Weight Weight Method 10/27/22191610/29/22 1513 10/27/227 10/29/22 1513 1.829 m (6') Stated 72.6 kg (160 lb) Standing scale Physical Exam Vitals and nursing note [...] soft. Tenderness: There is no abdominal tenderness. Genitourinary: Comments: Large right inguinal hernia patient reports is uncomfortable however on exam it is soft with no acute pain to palpation Musculoskeletal: General: No swelling. Cervical back: Neck supple. Comments: Right-sided hip pain Subtle right-sided weakness with dorsiflexion, pain limited range of motion of the right hip Decreased sensation in the right foot Skin: General: Skin is warm and dry. Capillary Refill: Capillary refill takes less than 2 seconds. Neurological: Mental Status: He is alert. Psychiatric: Mood and Affect: Mood normal. [facility] Medical Decision Making 27-year-old male past medical history depression, HIV, right inguinal hernia and questionable spinal cancer presents to the emergency department after a suicide attempt today with persistent suicidalideation. In discussion with Trauma given his mechanism there is potential for intracranial, spinal, and musculoskeletal injuries. Plan with woodruff scan, right hip x-rays, analgesia, suicide precautions, trauma labs. Will also evaluate CD4 and HIV viral load. Plan for admission given suicidal ideationand severe depression. Amount and/or Complexity of Data Reviewed Labs: ordered. Radiology: ordered and independent interpretation performed. Decision-making details documented in ED Course. Risk OTC drugs. Prescription drug management. Decision regarding hospitalization. Attending Summary of Care ED Course as of 10/30/22 1350 Time: 10/27 1905 Comment: ED attending-Natalia. 27 male HIV positive (on Biktary) chronic scrotal hernia, depression onAbilify and gabapentin. Threw self down 2 flights of stairs earlier today in attempt to kill self. Denies LOC says he hit his right hip and the back of his head was dazed. EMS called to [facility] they found him sitting outside event likely occurred over 6 hours prior to being seen. Patient notes that he has been hospitalized at [facility] in the past for suicide attempts. Still with active suicidal ideation his plan is that he would OD on meds. Borought in as trauma based no history but awake conversant, GCS 15, pt noted to be walking with limp a the custodial, denies NV, CP, SOB, chest pain. ON exam no outward signs of trauma, Tenderness to palp right hip some erythema no deformity. Back of head sight hematoma no laceration, bleeding. LEANDER visual townsend intact, speech clear, motor 5/5 upper and LE. By: Elkin Fisher MD Time: 10/27 1926 Comment: Talked with surgery placed in C collar, plan to woodruff scan head, C spine, chest abd and pelvis. By: Elkin Fisher MD Time: 10/27 2102 Comment: Ct scan pending, multiple traumas By: Leighann Vargas DO Time: 10/27 2140 Value: CT Chest Abdomen Pelvis W Contrast Comment: Fat and bowel-containing right inguinal hernia. No aggressive osseous lesion or acute fracture. IMPRESSION: No evidence of visceral traumatic injury. By: Leighann Vargas DO Time: 10/28 2219 Comment: No apparent injuries, trauma ok with psych admit By: Leighann Vargas DO Time: 04/07 2220 Comment: On further discussion will mri given increasing sensory deficit RLE By: Leighann Vargas DO Time: 10/275 Comment: Re: perirectal lymph nodes no bloody BM or rectal pain By: Leighann Vargas DO Time: 10/28 0301 Value: MRI Spine Total Complete W WO Contrast Comment: No acute osseous abnormality. No cord signal abnormality or abnormal enhancement. By: Ezra Graves MD Time: 10/28 0438 Comment: Patient's transferred from [facility]. He presented after he threw himself down a flight of stairs endorsing it as an SA. Patient is a voluntary admission to [facility]. Workups unremarkable. By: Mireya Wagner MD Time: 10/28 0704 Comment: Attending Physician signout received from Dr. eh MORALES, [facility], medications, allergies and RN & MD notes reviewed Patient Summary: pt is a 27 y.o.male with PMH hiv, presented to the ED for throwing himself down 2 sets of stairs in attempt to kill himself ED Course: trauma exam completed Plan: admit only [facility] as voluntary By: Wesley Garcias MD Time: 10/28 0943 Comment: Final MRI result: No acute osseous abnormality. No cord signal abnormality or abnormal enhancement. By: Loida Urbina MD Time: 10/28 1422 Comment: Patient requesting housing resources. Explained that we are still planning to admit him tothe inpatient side and he will be able to obtain those resources prior to discharge. Patient is agreeable with this. States he is generally sore from the fall last night and is agreeable to trying Tylenol and ibuprofen By: Loida Urbina MD Time: 10/28 2330 Comment: Manuel re-interviewed for risk precautions and screened moderately high risk. He is having some mild pain from fall and says tylenol helped earlier. He is overall doing well. By: Aarti Ortiz MD Suicide attempt ([facility]) Right hip pain HIV infection, unspecified symptom status ([facility]) Major depression, chronic History of right inguinal hernia Fall down steps, initial encounter Feared condition not demonstrated I have seen and examined the patient on 10/27/2022. I agree with the findings and plan of care as documented in the resident's note. Leighann Vargas DO Resident 10/28/22 8831 Elkin Fisher MD 10/30/22 2500 * Ezra Lowe RN - 10/27/2022 7:07 PM CDT Pt to the ER via ems with complaint of SI and rt hip pain after fall. Per pt he was wanting the pain to stop, feeling sad, and through myself down the steps. Per EMS pt fell down 24 steps. +hit head, +LOC, Pt A&Ox4, VSS, Hypertensive. * Shilpa Gates RN - 10/27/2022 7:01 PM CDT Bed: [facility] Expected date: 10/27/22 Expected time: 6:48 PM Means of arrival: Comments: Granda 27 yr old male fell down steps Shilpa Gates RN 10/27/22 1901 documented in this encounter Miscellaneous Notes * Plan of Care - Yelena Burrell RN - 11/07/2022 10:36 AM CDT Goals: Clinical Goals for the Shift: Be Productive Problem: Health Behavior: Goal: Understanding of discharge needs will improve Outcome: Met Problem: Lack of Knowledge: Goal: Knowledge of the prescribed therapeutic regimen will improve Outcome: Met Problem: Coping: Goal: Ability to cope will improve Outcome: Met Problem: Health Behavior: Goal: Identification of resources available to assist in meeting health care needs will improve Outcome: Met * Plan of Care - Taniya Pena MD - 11/07/2022 10:15 AM CDT Behavioral Health Transition of Care Patient Name: Manuel Chase Date of : 1995 Sex: Male Admission Date: 10/27/2022 Discharge Date: 11/07/2022 Admission Diagnosis: Suicide attempt (HCC) [T14.91XA] Right hip pain [M25.551] Suicidal ideation [R45.851] Discharge Diagnosis: depression Reason for inpatient psychiatric hospitalization (documentation of the symptoms/events the patient experienced prior to this hospitalization): SI Metabolic Lab Results: Body mass index is 22.38 kg/m??. Resulted in the Past 12 Months 10/27/22194210/27/221915 GLUCOSE -- 90 CHOL 121 -- HDL 36* -- LDLCALC 76 -- TRIG 47 -- NONHDLCHOL 85 -- Major Procedures and Tests: Major Procedures and Tests Performed During Inpatient Stay: None Studies Pending at Discharge (Includes Lab and Radiology) None Test Results Pending at Discharge: None Advance Directive: Advance Directive: Patient does not have advance directive Information Provided on Healthcare Directives: No Patient Requests Assistance: No Emergency contact for information related to this stay 12/02 emergency contact information related to inpatient stay: [facility]: [phone] (ask for Charge Nurse) Primary Physician, other healthcare professional, or site for follow up care ([facility] has specific follow up appointments): PCP: No, Physician Per note These instructions have been provided to and reviewed with the patient/career portals teacher prior to discharge: Yes * Plan of Care - Desiree Goodman RN - 11/07/2022 3:00 AM CDT Problem: Health Behavior: Goal: Understanding of discharge needs will improve Outcome: Progressing Problem: Activity: Goal: Ability to return to normal activity level will improve Outcome: Progressing Problem: Lack of Knowledge: Goal: Knowledge of the prescribed therapeutic regimen will improve Outcome: Progressing Problem: Coping: Goal: Ability to cope will improve Outcome: Progressing Problem: Health Behavior: Goal: Identification of resources available to assist in meeting health care needs will improve Outcome: Progressing Problem: Sensory: Goal: Pain level will decrease Outcome: Progressing Problem: Lack of Knowledge: Goal: Ability to state ways to decrease the risk of falls will improve Outcome: Progressing Problem: Safety: Goal: Will remain free from falls Outcome: Progressing Goal: Will remain free from injury from falls Outcome: Progressing Goal: Will remain free from falls and injury in home environment Outcome: Progressing Goals: Clinical Goals for the Shift: Free my mind Summary: * Assessment & Plan Note - Taniya Pena MD - 11/06/2022 5:18 PM CDTAssociated Problem(s): HIV (human immunodeficiency virus infection) (HCC) Continue biktarvy and schedule f/u appt * Hospital Course - Taniya Pena MD - 11/06/2022 4:12 PM CDT # Depression: patient was admitted for reported depression and anxiety. He was started on zoloft 50mg every day, which he tolerated well. He remained stable during his admission, he consistently denies SI and all mood sx. He participated in all unit activities and ate and slept well. He was compliant with all meds and did not have SE. #HIV: patient was restarted on Biktarvy every day and OP f/u was scheduled. #Risk assessment: at the time of discharge, patient is not at an imminent risk of harm to himself or others as he does not have SI/HI/AVH/delusions/disorganized behaviors/thought disorder or mood sx.He has clear and organized future plans and plans for self care. He is stable and appropriate for OP management. #MSE at discharge General Appearance and Behavior: Appears stated age No apparent distress and Well-dressed Normal psychomotor activity Good eye contact Cooperative Speech: Regular rate Normal rhythm Normal volume Normal amount Normal tone Spontaneous Normal latency (<3 seconds) Flow of Thought: logical, sequential, and goal-directed Content of Thought: Negative for suicidal ideation, homicidal ideation, delusions, and hallucinations Mood: ok' Affect: euthymic, full range, normal amount, appropriate to conversation/situation, stable, and mood-congruent Insight: fair Judgment: fair Sensorium: alert, awake, and oriented x 3 * Assessment & Plan Note - Taniya Pena MD - 11/06/2022 4:12 PM CDTAssociated Problem(s): Depressive disorder No SI or mood sx. Plan to d/c PLAN - continue zoloft 50mg every day - appreciate SW and medical team input * Plan of Care - Yelena Burrell RN - 11/06/2022 11:46 AM CDT Goals: Clinical Goals for the Shift: Maintain a good mental state throughout the day Problem: Health Behavior: Goal: Understanding of discharge needs will improve Outcome: Progressing Problem: Activity: Goal: Ability to return to normal activity level will improve Outcome: Progressing Problem: Lack of Knowledge: Goal: Knowledge of the prescribed therapeutic regimen will improve Outcome: Progressing Problem: Coping: Goal: Ability to cope will improve Outcome: Progressing Problem: Activity: Goal: Interest or engagement in leisure activities will improve Description: Manuel will participate in at least two recreational/activity groups prior to discharge. Outcome: Progressing Problem: Lack of Knowledge: Goal: Verbalization of understanding the information provided will improve Outcome: Progressing Problem: Coping: Goal: Ability to verbalize frustrations and anger appropriately will improve Outcome: Progressing * Plan of Care - Amira Juan RN - 11/06/2022 5:01 AM CDT Goals: Clinical Goals for the Shift: get some sleep. Summary: Problem: Activity: Goal: Sleeping patterns will improve Outcome: Progressing Problem: Lack of Knowledge: Goal: Verbalization of understanding the information provided will improve Outcome: Progressing Problem: Health Behavior: Goal: Understanding of discharge needs will improve Outcome: Not Progressing Problem: Activity: Goal: Ability to return to normal activity level will improve Outcome: Not Progressing * Plan of Win Delaney RN - 11/05/2022 11:04 AM CDT Goals: Maintain a good mental status. Problem: Lack of Knowledge: Goal: Knowledge of the prescribed therapeutic regimen will improve Outcome: Progressing Problem: Coping: Goal: Ability to cope will improve Outcome: Progressing Intervention: Provide emotional support Note: Manuel will verbalize healthy coping skills by 11/10/2022. Problem: Safety: Goal: Will remain free from falls Outcome: Progressing Problem: Activity: Goal: Interest or engagement in leisure activities will improve Description: Manuel will participate in at least two recreational/activity groups prior to discharge. Outcome: Progressing Problem: Lack of Knowledge: Goal: Verbalization of understanding the information provided will improve Outcome: Progressing * Plan of Carter - Amira Juan RN - 11/05/2022 12:21 AM CDT Goals: Clinical Goals for the Shift: get a good night's rest Summary: Problem: Health Behavior: Goal: Understanding of discharge needs will improve Outcome: Progressing Problem: Lack of Knowledge: Goal: Verbalization of understanding the information provided will improve Outcome: Progressing Problem: Activity: Goal: Ability to return to normal activity level will improve Outcome: Not Progressing * Yosef of Tabitha Solomon RN - 11/04/2022 8:05 AM CDT Problem: Health Behavior: Goal: Understanding of discharge needs will improve Outcome: Progressing Problem: Activity: Goal: Ability to return to normal activity level will improve Outcome: Progressing Problem: Lack of Knowledge: Goal: Knowledge of the prescribed therapeutic regimen will improve Outcome: Progressing Problem: Coping: Goal: Ability to cope will improve Outcome: Progressing Problem: Health Behavior: Goal: Identification of resources available to assist in meeting health care needs will improve Outcome: Progressing Problem: Sensory: Goal: Pain level will decrease Outcome: Not Progressing Problem: Lack of Knowledge: Goal: Ability to state ways to decrease the risk of falls will improve Outcome: Progressing Problem: Safety: Goal: Will remain free from falls Outcome: Progressing Goal: Will remain free from injury from falls Outcome: Progressing Goal: Will remain free from falls and injury in home environment Outcome: Progressing Problem: Activity: Goal: Interest or engagement in leisure activities will improve Description: Manuel will participate in at least two recreational/activity groups prior to discharge. Outcome: Progressing Goal: Sleeping patterns will improve Outcome: Progressing Problem: Lack of Knowledge: Goal: Verbalization of understanding the information provided will improve Outcome: Progressing Problem: Coping: Goal: Ability to verbalize frustrations and anger appropriately will improve Outcome: Progressing Goal: Ability to demonstrate self-control will improve Outcome: Progressing Problem: Safety: Goal: Ability to contract for his/her safety will improve Outcome: Progressing Problem: Self-Concept: Goal: Verbalizations of decreased anxiety will increase Description: Manuel will report anxiety of 3 or less prior to discharge. Outcome: Progressing Problem: Lack of Knowledge: Goal: Ability to develop a pain control plan will improve Outcome: Not Progressing Goal: Ability to identify pain intensity on a pain scale and rate it consistently will improve Outcome: Not Progressing Goal: Ability to notify healthcare provider of pain before it becomes unmanageable or unbearable will improve Outcome: Progressing Problem: Medication: Goal: Satisfaction with pain management regimen will improve Outcome: Progressing Problem: Sensory: Goal: Ability to identify factors that increase the pain will improve Outcome: Not Progressing Goal: Pain level will decrease Outcome: Not Progressing Goals: Clinical Goals for the Shift: maintain good mental state Summary: * Plan of Carter - Amira Juan RN - 11/04/2022 3:06 AM CDT Goals: Clinical Goals for the Shift: to get some good rest Summary: Problem: Health Behavior: Goal: Understanding of discharge needs will improve Outcome: Progressing Problem: Coping: Goal: Ability to cope will improve Outcome: Progressing Problem: Activity: Goal: Interest or engagement in leisure activities will improve Description: Manuel will participate in at least two recreational/activity groups prior to discharge. Outcome: Progressing * Plan of Care - Sue Ordoñez RN - 11/03/2022 1:25 PM CDT Goals: Clinical Goals for the Shift: figure out housing Summary: Problem: Health Behavior: Goal: Understanding of discharge needs will improve Outcome: Progressing Problem: Lack of Knowledge: Goal: Knowledge of the prescribed therapeutic regimen will improve Outcome: Progressing Problem: Health Behavior: Goal: Identification of resources available to assist in meeting health care needs will improve Outcome: Progressing Problem: Safety: Goal: Ability to contract for his/her safety will improve Outcome: Progressing Problem: Lack of Knowledge: Goal: Ability to identify pain intensity on a pain scale and rate it consistently will improve Outcome: Progressing Problem: Sensory: Goal: Pain level will decrease Outcome: Not Progressing Problem: Self-Concept: Goal: Verbalizations of decreased anxiety will increase Description: Manuel will report anxiety of 3 or less prior to discharge. Outcome: Not Progressing * Plan of Care - Kwadwo Navarro RN - 11/02/2022 7:47 PM CDT Problem: Health Behavior: Goal: Understanding of discharge needs will improve Outcome: Progressing Problem: Lack of Knowledge: Goal: Knowledge of the prescribed therapeutic regimen will improve Outcome: Progressing Problem: Coping: Goal: Ability to cope will improve Outcome: Progressing Problem: Health Behavior: Goal: Identification of resources available to assist in meeting health care needs will improve Outcome: Progressing Problem: Sensory: Goal: Pain level will decrease Outcome: Progressing Problem: Lack of Knowledge: Goal: Ability to state ways to decrease the risk of falls will improve Outcome: Progressing Problem: Safety: Goal: Will remain free from falls Outcome: Progressing Goal: Will remain free from injury from falls Outcome: Progressing Goal: Will remain free from falls and injury in home environment Outcome: Progressing Problem: Activity: Goal: Interest or engagement in leisure activities will improve Description: Manuel will participate in at least two recreational/activity groups prior to discharge. Outcome: Progressing Goal: Sleeping patterns will improve Outcome: Progressing Problem: Coping: Goal: Ability to verbalize frustrations and anger appropriately will improve Outcome: Progressing Goal: Ability to demonstrate self-control will improve Outcome: Progressing Problem: Activity: Goal: Ability to return to normal activity level will improve Outcome: Not Progressing Problem: Lack of Knowledge: Goal: Ability to develop a pain control plan will improve Outcome: Not Progressing * Plan of Care - Juan Lima RN - 11/02/2022 10:30 AM CDT Goals: Clinical Goals for the Shift: to maintain the mental state that I'm in right now Summary: Problem: Sensory: Goal: Pain level will decrease Outcome: Not Progressing Problem: Activity: Goal: Sleeping patterns will improve Outcome: Not Progressing Problem: Self-Concept: Goal: Verbalizations of decreased anxiety will increase Description: Manuel will report anxiety of 3 or less prior to discharge. Outcome: Not Progressing Problem: Sensory: Goal: Pain level will decrease Outcome: Not Progressing Problem: Health Behavior: Goal: Understanding of discharge needs will improve Outcome: Progressing Problem: Activity: Goal: Ability to return to normal activity level will improve Outcome: Progressing Problem: Lack of Knowledge: Goal: Knowledge of the prescribed therapeutic regimen will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 is for voluntary admission to [facility]. If patient decides to recant; prior team would like Psychiatry to provide formal evaluation. Patient has not yet required chemical sedation. Patient did receive Tylenol and ibuprofen for acute musculoskeletal pain. Awaiting bed assignment. Patient to remain on elopement status Vin Faustin MD 10/28/22 2300 * Plan of Care - Michelle Bailey RN - 10/28/2022 10:44 AM CDT Pt remains in ED as a Boarder which means they have been waiting on a hospital bed assignment for > 4 hours - documentation was revaluated by ED CM and pt continues to meet medical necessity for hospital admission. * ED Re-evaluation Note - Loida Urbina MD - 10/28/2022 6:54 AM CDT ED Re-evaluation TRANSITION OF CARE: I, Loida Urbina MD, am taking signout. I have reviewed all pertinent vital signs, allergies, and history available in the chart. Summary: 27 y.o. male with history of HIV and depression presents after attempted suicide by throwing himself down 2 flights of stairs with head trauma, LOC. Trauma workup negative. Pending: bed placement Dispo: voluntary admission to [facility], discuss with psych if he changes his mind ED Course as of 10/28/22 2331 Time: 10/27 1905 Comment: ED attending-Natalia. 27 male HIV positive (on Biktary) chronic scrotal hernia, depression onAbilify and gabapentin. Threw self down 2 flights of stairs earlier today in attempt to kill self. Denies LOC says he hit his right hip and the back of his head was dazed. EMS called to [facility] they found him sitting outside event likely occurred over 6 hours prior to being seen. Patient notes that he has been hospitalized at [facility] in the past for suicide attempts. Still with active suicidal ideation his plan is that he would OD on meds. Borought in as trauma based no history but awake conversant, GCS 15, pt noted to be walking with limp a the custodial, denies NV, CP, SOB, chest pain. ON exam no outward signs of trauma, Tenderness to palp right hip some erythema no deformity. Back of head sight hematoma no laceration, bleeding. LEANDER visual townsend intact, speech clear, motor 5/5 upper and LE. By: Elkin Fisher MD Time: 10/27 1926 Comment: Talked with surgery placed in C collar, plan to woodruff scan head, C spine, chest abd and pelvis. By: Elkin Fisher MD Time: 10/27 2102 Comment: Ct scan pending, multiple traumas By: Leighann Vargas, Time: 10/27 2140 Value: CT Chest Abdomen Pelvis W Contrast Comment: Fat and bowel-containing right inguinal hernia. ?? No aggressive osseous lesion or acute fracture. ?? IMPRESSION: No evidence of visceral traumatic injury. By: Leighann Vargas DO Time: 10/28 2219 Comment: No apparent injuries, trauma ok with psych admit By: Leighann Vargas DO Time: 10/28 2219 Comment: On further discussion will mri given increasing sensory deficit RLE By: Leighann Vargas DO Time: 10/27 2224 Comment: Re: perirectal lymph nodes no bloody BM or rectal pain By: Leighann Vargas DO Time: 10/28 300 Value: MRI Spine Total Complete W WO Contrast Comment: No acute osseous abnormality. No cord signal abnormality or abnormal enhancement. By: Ezra Graves MD Time: 10/28 0438 Comment: Patient's transferred from [facility]. He presented after he threw himself down a flight of stairs endorsing it as an SA. Patient is a voluntary admission to [facility]. Workups unremarkable. By: Mireya Wagner MD Time: 10/28 0704 Comment: Attending Physician signout received from Dr. eh MORALES, [facility], medications, allergies and RN & MD notes reviewed Patient Summary: pt is a 27 y.o.male with PMH hiv, presented to the ED for throwing himself down 2 sets of stairs in attempt to kill himself ED Course: trauma exam completed Plan: admit only PSC as voluntary By: Wesley Garcias MD Time: 10/28 0942 Comment: Final MRI result: No acute osseous abnormality. No cord signal abnormality or abnormal enhancement. By: Loida Urbina MD Time: 10/28 6230 Comment: Patient requesting housing resources. Explained that we are still planning to admit him tothe inpatient side and he will be able to obtain those resources prior to discharge. Patient is agreeable with this. States he is generally sore from the fall last night and is agreeable to trying Tylenol and ibuprofen By: MozLoida Adler MD Time: 10/28 2329 Comment: Manuel re-interviewed for risk precautions and screened moderately high risk. He is having some mild pain from fall and says tylenol helped earlier. He is overall doing well. By: Aarti Ortiz MD Mozelewski-Hill, Sasha Rae, MD Resident 10/28/22 193 Loida Urbina MD Resident 10/29/22 0635 * ED Re-evaluation Note - Ezra Graves MD - 10/27/2022 11:07 PM CDT ED Re-evaluation TRANSITION OF CARE: I, Ezra Graves MD, am taking signout from Dr. Vargas (Resident) and assuming care of this patient under the supervision of Dr. Townsend (Attending). I have reviewed all pertinent vital signs, allergies, and history available in the chart. Summary: 27 y.o. male who attempted suicide by throwing himself down 2 flights of stairs with head trauma, LOC. Has right sided weakness to the RLE, potentially worsening right sided deficit. GettingMRI spine. Able to walk. If MRI is good, consult psych and move to [facility]. Pending: MRI Dispo: Admission ED Course as of 10/28/222330 Time: 10/27 1905 Comment: ED attending-Natalia. 27 male HIV positive (on Biktary) chronic scrotal hernia, depression onAbilify and gabapentin. Threw self down 2 flights of stairs earlier today in attempt to kill self. Denies LOC says he hit his right hip and the back of his head was dazed. EMS called to [facility] they found him sitting outside event likely occurred over 6 hours prior to being seen. Patient notes that he has been hospitalized at [facility] in the past for suicide attempts. Still with active suicidal ideation his plan is that he would OD on meds. Borought in as trauma based no history but awake conversant, GCS 15, pt noted to be walking with limp a the custodial, denies NV, CP, SOB, chest pain. ON exam no outward signs of trauma, Tenderness to palp right hip some erythema no deformity. Back of head sight hematoma no laceration, bleeding. LEANDER visual townsend intact, speech clear, motor 5/5 upper and LE. By: Elkin Fisher MD Time: 10/27 1926 Comment: Talked with surgery placed in C collar, plan to woodruff scan head, C spine, chest abd and pelvis. By: Elkin Fisher MD Time: 10/27 2102 Comment: Ct scan pending, multiple traumas By: Leighann Vagras, Time: 10/27 2140 Value: CT Chest Abdomen Pelvis W Contrast Comment: Fat and bowel-containing right inguinal hernia. ?? No aggressive osseous lesion or acute fracture. ?? IMPRESSION: No evidence of visceral traumatic injury. By: Leighann Vargas DO Time: 10/28 2219 Comment: No apparent injuries, trauma ok with psych admit By: Leighann Vargas DO Time: 10/28 2219 Comment: On further discussion will mri given increasing sensory deficit RLE By: Leighann Vargas DO Time: 10/27 2224 Comment: Re: perirectal lymph nodes no bloody BM or rectal pain By: Leighann Vargas DO Time: 10/28 300 Value: MRI Spine Total Complete W WO Contrast Comment: No acute osseous abnormality. No cord signal abnormality or abnormal enhancement. By: Ezra Graves MD Time: 10/286 Comment: Patient's transferred from [facility]. He presented after he threw himself down a flight of stairs endorsing it as an SA. Patient is a voluntary admission to [facility]. Workups unremarkable. By: Mireya Wagner MD Time: 10/28 0704 Comment: Attending Physician signout received from Dr. eh MORALES, [facility], medications, allergies and RN & MD notes reviewed Patient Summary: pt is a 27 y.o.male with PMH hiv, presented to the ED for throwing himself down 2 sets of stairs in attempt to kill himself ED Course: trauma exam completed Plan: admit only PSC as voluntary By: Wesley Garcias MD Time: 10/28 0943 Comment: Final MRI result: No acute osseous abnormality. No cord signal abnormality or abnormal enhancement. By: Loida Urbina MD Time: 10/28 1143 Comment: Patient requesting housing resources. Explained that we are still planning to admit him tothe inpatient side and he will be able to obtain those resources prior to discharge. Patient is agreeable with this. States he is generally sore from the fall last night and is agreeable to trying Tylenol and ibuprofen By: Loida Urbina MD Time: 10/28 2881 Comment: Manuel re-interviewed for risk precautions and screened moderately high risk. He is having some mild pain from fall and says tylenol helped earlier. He is overall doing well. By: Aarti Ortiz MD Final diagnoses: Suicide attempt (HCC) Right hip pain Ezra Graves MD Resident 10/28/22 0745 * ED Procedure Note - Elkin Fisher MD - 10/27/2022 9:45 PM CDTAssociated Order(s): Critical Care Procedure Critical Care Performed by: Elkin Fisher MD Authorized by: Elkin Fisher MD Critical care provider statement: As reflected in the history, physical exam, orders, notes, and/or MDM, I was personally present while the patient was critically ill and provided critical care services for 35 minutes, excluding timeinvolved in separately billable procedures. Critical care was necessary to treat or prevent imminent or life- threatening deterioration of the following condition(s): level 1 trauma and spinal cord injury/spine fracture suicidal/homicidal ideation Critical care was time spent by me providing the following: continuous telemetry, continuous pulse oximetry, interpretation of bedside monitors, imaging, and arterial/venous lab draws, serial bedside patient exams and resuscitation with fluids frequent neurologic exams psychological evaluation with medical clearance and acute pain control I provided emergent necessary critical care medicine [...] spent time documenting in the medical record. Elkin Fisher MD 10/27/22 2146 documented in this encounter Plan of Treatment Not on file documented as of this encounter Procedures Procedure Name Priority Date/Time Associated Diagnosis Comments MRI SPINE TOTAL COMPLETE W WO CONTRAST ED Urgent/IP Urgent 10/28/2022 2:00 AM CDT [facility] ILL/INJURED PATIENT INIT 30-74 MIN Routine 10/27/2022 9:[address] RECON THORACIC AND LUMBAR SPINE W CONTRAST ED Urgent/IP Urgent 10/27/2022 9:[address] HEAD AND CERVICAL SPINE WO CONTRAST ED Urgent/IP Urgent 10/27/2022 9:[address] CHEST ABDOMEN PELVIS W CONTRAST ED Urgent/IP Urgent 10/27/2022 9:21 PM CDT URINALYSIS AND REFLEX TO MICROSCOPIC AND CULTURE STAT 10/27/2022 8:13 PM CDT DRUGS OF ABUSE SCREEN, URINE WITHOUT CONFIRMATION STAT 10/27/2022 8:13 PM CDT THYROID FUNCTION CASCADE Routine 10/27/2022 7:43 PM CDT ETHANOL STAT 10/27/2022 7:43 PM CDT ACETAMINOPHEN LEVEL STAT 10/27/2022 7 :43 PM CDT SALICYLATE LEVEL STAT 10/27/2022 7:43 PM CDT LIPID PANEL STAT 10/27/2022 7:43 PM CDT B CHECK SAMPLE STAT 10/27/2022 7:42 PM CDT HIV-1 RNA, QUANTITATIVE, PCR STAT 10/27/2022 7:42 PM CDT T-HELPER CELLS (CD4) COUNT STAT 10/27/2022 7:42 PM CDT POCT CREATININE - DEVICE Routine 10/27/2022 7:33 PM CDT XR PELVIS 1 OR 2 VIEWS ED Urgent/IP Urgent 10/27/2022 7:24 PM CDT XR CHEST 1 VIEW ED 10/27/2022 7:24 PM CDT EGFR STAT 10/27/2022 7:16 PM CDT DIFFERENTIAL AUTO STAT 10/27/2022 7:1 6 PM CDT CBC WITH AUTO DIFFERENTIAL STAT 10/27/2022 7:16 PM CDT HC ANTIBODY SCREEN RBC STAT 10/27/2022 7:16 PM CDT COMPREHENSIVE METABOLIC PANEL STAT 10/27/2022 7:16 PM CDT documented in this encounter Results * MRI Spine Total Complete W WO Contrast (10/28/2022 2:00 AM CDT) Anatomical Region Laterality Modality Spine N/A Magnetic Resonan ce 10/28/2022 8:02 AM CDT Impressions 10/28/2022 8:46 AM CDT No acute osseous abnormality. ??No cord signal abnormality or abnormal enhancement. Dictated by: Elton Justice MD The radiology attending physician has personally reviewed this study, and had reviewed and/or edited this written report and agrees with it. Electronically signed by: Agatha Castellano M.D. Narrative 10/28/2022 8:46 AM CDT EXAMINATION: Magnetic resonance imaging (MRI) of the cervical spine without and with contrast Magnetic resonance imaging (MRI) of the thoracic spine without and with contrast Magnetic resonance imaging (MRI) of the lumbar spine without and with contrast HISTORY: Fall, left lower extremity weakness. TECHNIQUE: Multiplanar multi-weighted MRI of the entire spine was performed without and with intravenous contrast using the standard total spine protocol. Contrast information: 14 mL gadoterate meglumine COMPARISON: None available. FINDINGS: CERVICAL SPINE: There is straightening of normal cervical lordosis. Vertebral bodies demonstrate normal signal intensity on all sequences. No acute fracture is identified; however, if trauma is suspected, a CT scan would be a more sensitive examination for fractures. The craniocervical junction is normal. The visualized portions of the skull base and the posterior fossa are normal. The spinal cord demonstrates normal signal intensity on all sequences. Intervertebral disks have normal height and signal intensity. There are no annular fissures identified. No soft tissue abnormality is identified. Normal signal voids are present in the vertebral arteries. See dedicated CT cervical spine for evaluation of the cervical soft tissues. ??Multiple prominent lymph nodes are noted. THORACIC SPINE: The alignment of the thoracic spine is normal. Vertebral bodies demonstrate normal signal intensity on all sequences. There are no compression fractures. The spinal cord demonstrates normal signal intensity on all sequences. Intervertebral disks have normal height and signal intensity. See dedicated CT thorax for evaluation the chest. The aorta is normal. There are no areas of abnormal contrast enhancement. The disks are normal in configuration. There is no facet arthropathy. There is no neuroforaminal stenosis. There is no spinal canal stenosis. LUMBAR SPINE: The alignment of the lumbar spine is normal. Vertebral bodies demonstrate normal signal intensity on all sequences. There are no compression fractures. The conus medullaris terminates at the level of L1-L2. The distal spinal cord signal intensity is normal. Intervertebral disks have normal height and signal intensity. There are no annular fissures identified. Limited see dedicated CT for evaluation of the abdomen/pelvis. The aorta is normal. There are no areas of abnormal contrast enhancement. Procedure Note Agatha Castellano MD - 10/28/2022 EXAMINATION: Magnetic resonance imaging (MRI) of the cervical spine without and with contrast Magnetic resonance imaging (MRI) of the thoracic spine without and with contrast Magnetic resonance imaging (MRI) of the lumbar spine without and with contrast HISTORY: Fall, left lower extremity weakness. TECHNIQUE: Multiplanar multi-weighted MRI of the entire spine was performed without and with intravenous contrast using the standard total spine protocol. Contrast information: 14 mL gadoterate meglumine COMPARISON: None available. FINDINGS: CERVICAL SPINE: There is straightening of normal cervical lordosis. Vertebral bodies demonstrate normal signal intensity on all sequences. No acute fracture is identified; however, if trauma is suspected, a CT scan would be a more sensitive examination for fractures. The craniocervical junction is normal. The visualized portions of the skull base and the posterior fossa are normal. The spinal cord demonstrates normal signal intensity on all sequences. Intervertebral disks have normal height and signal intensity. There are no annular fissures identified. No soft tissue abnormality is identified. Normal signal voids are present in the vertebral arteries. See dedicated CT cervical spine for evaluation of the cervical soft tissues. Multiple prominent lymph nodes are noted. THORACIC SPINE: The alignment of the thoracic spine is normal. Vertebral bodies demonstrate normal signal intensity on all sequences. There are no compression fractures. The spinal cord demonstrates normal signal intensity on all sequences. Intervertebral disks have normal height and signal intensity. See dedicated CT thorax for evaluation the chest. The aorta is normal. There are no areas of abnormal contrast enhancement. The disks are normal in configuration. There is no facet arthropathy. There is no neuroforaminal stenosis. There is no spinal canal stenosis. LUMBAR SPINE: The alignment of the lumbar spine is normal. Vertebral bodies demonstrate normal signal intensity on all sequences. There are no compression fractures. The conus medullaris terminates at the level of L1-L2. The distal spinal cord signal intensity is normal. Intervertebral disks have normal height and signal intensity. There are no annular fissures identified. Limited see dedicated CT for evaluation of the abdomen/pelvis. The aorta is normal. There are no areas of abnormal contrast enhancement. IMPRESSION: No acute osseous abnormality. No cord signal abnormality or abnormal enhancement. Dictated by: Elton Justice MD The radiology attending physician has personally reviewed this study, and had reviewed and/or edited this written report and agrees with it. Electronically signed by: Agatha Castellano M.D. [facility] Hospital[facility] Varg[facility] DO IMG MRI PROCEDURES Final Res ult * [facility] C[facility] ILL/INJURED PATIENT INIT 30-74 MIN (10/27/2022 9:45 PM CDT) Narrative Elkin Fisher MD - 10/27/2022 9:45 PM CDT Elkin Fisher MD ? 10/27/2022 ??9:46 PM Critical Care Performed by: Elkin Fisher MD Authorized by: Elkin Fisher MD Critical care provider statement: As reflected in the history, physical exam, orders, notes, and/or MDM, I was personally present while the patient was critically ill and provided critical care services for 35 minutes, excluding time involved in separately billable procedures. ??Critical care was necessary to treat or prevent imminent or life-threatening deterioration of the following condition(s): ?? level 1 trauma and spinal cord injury/spine fracture ?? suicidal/homicidal ideation ??Critical care was time spent by me providing the following: ? continuous telemetry, continuous pulse oximetry, interpretation of bedside monitors, imaging, and arterial/venous lab draws, serial bedside patient exams and resuscitation with fluids ?? frequent neurologic exams ?? psychological evaluation with medical clearance and acute pain control ?? I provided emergent necessary critical care [...] time documenting in the medical record. us Elkin Fisher MD IN CLINIC/BEDSIDE ORDERABLES Final Result * CT Recon Thoracic and Lumbar Spine W Contrast (C) (10/27/2022 9:21 PM CDT) Anatomical Region Laterality Modality Spine N/A Computed Tomogra phy 10/27/2022 9:44 PM CDT Impressions 10/28/2022 8:31 AM CDT 1. ??No acute intracranial abnormality. 2. ??No evidence of acute fracture in the cervical, thoracic, or lumbar spine. 3. ??Multiple prominent perirectal lymph nodes. ??These may be seen in the setting of proctitis or possibly a rectal neoplasm. ??Recommend proctoscopy as clinically warranted. Dictated by: Tarik Stewart M.D. The radiology attending physician has personally reviewed this study, and had reviewed and/or edited this written report and agrees with it. Electronically signed by: Agatha Castellano M.D. Narrative 10/28/2022 8:31 AM CDT EXAMINATION: Noncontrast head CT CT of the cervical spine without contrast CT of the thoracic spine with contrast CT of the lumbar spine with contrast HISTORY: 27-year-old male with history of HIV, questionable spinal cancer, presenting after suicide attempt (patient self down stairs). TECHNIQUE: Noncontrast CT of the brain was performed with images acquired from skull base to vertex. Computed tomography of the cervical spine was performed without contrast according to standard protocol. Dedicated reconstructions of the thoracic and lumbar spine were generated using data from a CT of the chest, abdomen, and pelvis acquired with intravenous contrast according to standard protocol. COMPARISON: None available. FINDINGS: HEAD: Topogram demonstrates no lytic lesions or fractures. There is no acute intracranial hemorrhage. There is mild diffuse cerebral atrophy out of proportion for patient age, with ex vacuo dilatation of ventricles, likely sequela of HIV. No mass effect or midline shift is present. The hobbs-white matter differentiation is normal. ??There is mild mucosal thickening of the sphenoid sinuses. CERVICAL SPINE: There is reversal of curvature of the cervical spine. There is no acute fracture. Vertebral bodies are normal in height without compression fractures. Intervertebral disk heights are normal. There is no spinal canal stenosis. The craniocervical junction is normal. The facets are normal. The uncovertebral joints are normal without foraminal stenosis. Mildly prominent posterior cervical lymph nodes are likely related to patient's HIV infection.. THORACIC SPINE: There are 12 rib-bearing thoracic vertebrae. The alignment of the thoracic spine is normal. There is no acute fracture. Vertebral bodies are normal in height without compression fractures. Intervertebral disk heights are normal. There is no spinal canal stenosis. The facets are normal. The thoracic aorta is normal. No soft tissue abnormality is identified. LUMBAR SPINE: The alignment of the lumbar spine is normal. There is no acute fracture. Vertebral bodies are normal in height without compression fractures. Intervertebral disk heights are normal. There is no spinal canal stenosis. The facets are normal. The abdominal aorta is normal. There are multiple round perirectal lymph nodes, which are prominent. The largest measures 1.4 x 9.6 cm (series 4 image 270).. Procedure Note Agatha Castellano MD - 10/28/2022 EXAMINATION: Noncontrast head CT CT of the cervical spine without contrast CT of the thoracic spine with contrast CT of the lumbar spine with contrast HISTORY: 27-year-old male with history of HIV, questionable spinal cancer, presenting after suicide attempt (patient self down stairs). TECHNIQUE: Noncontrast CT of the brain was performed with images acquired from skull base to vertex. Computed tomography of the cervical spine was performed without contrast according to standard protocol. Dedicated reconstructions of the thoracic and lumbar spine were generated using data from a CT of the chest, abdomen, and pelvis acquired with intravenous contrast according to standard protocol. COMPARISON: None available. FINDINGS: HEAD: Topogram demonstrates no lytic lesions or fractures. There is no acute intracranial hemorrhage. There is mild diffuse cerebral atrophy out of proportion for patient age, with ex vacuo dilatation of ventricles, likely sequela of HIV. No mass effect or midline shift is present. The hobbs-white matter differentiation is normal. There is mild mucosal thickening of the sphenoid sinuses. CERVICAL SPINE: There is reversal of curvature of the cervical spine. There is no acute fracture. Vertebral bodies are normal in height without compression fractures. Intervertebral disk heights are normal. There is no spinal canal stenosis. The craniocervical junction is normal. The facets are normal. The uncovertebral joints are normal without foraminal stenosis. Mildly prominent posterior cervical lymph nodes are likely related to patient's HIV infection.. THORACIC SPINE: There are 12 rib-bearing thoracic vertebrae. The alignment of the thoracic spine is normal. There is no acute fracture. Vertebral bodies are normal in height without compression fractures. Intervertebral disk heights are normal. There is no spinal canal stenosis. The facets are normal. The thoracic aorta is normal. No soft tissue abnormality is identified. LUMBAR SPINE: The alignment of the lumbar spine is normal. There is no acute fracture. Vertebral bodies are normal in height without compression fractures. Intervertebral disk heights are normal. There is no spinal canal stenosis. The facets are normal. The abdominal aorta is normal. There are multiple round perirectal lymph nodes, which are prominent. The largest measures 1.4 x 9.6 cm (series 4 image 270).. IMPRESSION: 1. No acute intracranial abnormality. 2. No evidence of acute fracture in the cervical, thoracic, or lumbar spine. 3. Multiple prominent perirectal lymph nodes. These may be seen in the setting of proctitis or possibly a rectal neoplasm. Recommend proctoscopy as clinically warranted. Dictated by: Tarik Stewart M.D. The radiology attending physician has personally reviewed this study, and had reviewed and/or edited this written report and agrees with it. Electronically signed by: Agatha Castellano M.D. Leighann Vargas DO IMG CT PROCEDURES Final Resu lt * CT Head and Cervical Spine WO Contrast (10/27/2022 9:21 PM CDT) Anatomical Region Laterality Modality Head and Neck N/A Computed Tomogra phy 10/27/2022 9:44 PM CDT Impressions 10/28/2022 8:31 AM CDT 1. ??No acute intracranial abnormality. 2. ??No evidence of acute fracture in the cervical, thoracic, or lumbar spine. 3. ??Multiple prominent perirectal lymph nodes. ??These may be seen in the setting of proctitis or possibly a rectal neoplasm. ??Recommend proctoscopy as clinically warranted. Dictated by: Tarik Stewart M.D. The radiology attending physician has personally reviewed this study, and had reviewed and/or edited this written report and agrees with it. Electronically signed by: Agatha Castellano M.D. Narrative 10/28/2022 8:31 AM CDT EXAMINATION: Noncontrast head CT CT of the cervical spine without contrast CT of the thoracic spine with contrast CT of the lumbar spine with contrast HISTORY: 27-year-old male with history of HIV, questionable spinal cancer, presenting after suicide attempt (patient self down stairs). TECHNIQUE: Noncontrast CT of the brain was performed with images acquired from skull base to vertex. Computed tomography of the cervical spine was performed without contrast according to standard protocol. Dedicated reconstructions of the thoracic and lumbar spine were generated using data from a CT of the chest, abdomen, and pelvis acquired with intravenous contrast according to standard protocol. COMPARISON: None available. FINDINGS: HEAD: Topogram demonstrates no lytic lesions or fractures. There is no acute intracranial hemorrhage. There is mild diffuse cerebral atrophy out of proportion for patient age, with ex vacuo dilatation of ventricles, likely sequela of HIV. No mass effect or midline shift is present. The hobbs-white matter differentiation is normal. ??There is mild mucosal thickening of the sphenoid sinuses. CERVICAL SPINE: There is reversal of curvature of the cervical spine. There is no acute fracture. Vertebral bodies are normal in height without compression fractures. Intervertebral disk heights are normal. There is no spinal canal stenosis. The craniocervical junction is normal. The facets are normal. The uncovertebral joints are normal without foraminal stenosis. Mildly prominent posterior cervical lymph nodes are likely related to patient's HIV infection.. THORACIC SPINE: There are 12 rib-bearing thoracic vertebrae. The alignment of the thoracic spine is normal. There is no acute fracture. Vertebral bodies are normal in height without compression fractures. Intervertebral disk heights are normal. There is no spinal canal stenosis. The facets are normal. The thoracic aorta is normal. No soft tissue abnormality is identified. LUMBAR SPINE: The alignment of the lumbar spine is normal. There is no acute fracture. Vertebral bodies are normal in height without compression fractures. Intervertebral disk heights are normal. There is no spinal canal stenosis. The facets are normal. The abdominal aorta is normal. There are multiple round perirectal lymph nodes, which are prominent. The largest measures 1.4 x 9.6 cm (series 4 image 270).. Procedure Note Agatha Castellano MD - 10/28/2022 EXAMINATION: Noncontrast head CT CT of the cervical spine without contrast CT of the thoracic spine with contrast CT of the lumbar spine with contrast HISTORY: 27-year-old male with history of HIV, questionable spinal cancer, presenting after suicide attempt (patient self down stairs). TECHNIQUE: Noncontrast CT of the brain was performed with images acquired from skull base to vertex. Computed tomography of the cervical spine was performed without contrast according to standard protocol. Dedicated reconstructions of the thoracic and lumbar spine were generated using data from a CT of the chest, abdomen, and pelvis acquired with intravenous contrast according to standard protocol. COMPARISON: None available. FINDINGS: HEAD: Topogram demonstrates no lytic lesions or fractures. There is no acute intracranial hemorrhage. There is mild diffuse cerebral atrophy out of proportion for patient age, with ex vacuo dilatation of ventricles, likely sequela of HIV. No mass effect or midline shift is present. The hobbs-white matter differentiation is normal. There is mild mucosal thickening of the sphenoid sinuses. CERVICAL SPINE: There is reversal of curvature of the cervical spine. There is no acute fracture. Vertebral bodies are normal in height without compression fractures. Intervertebral disk heights are normal. There is no spinal canal stenosis. The craniocervical junction is normal. The facets are normal. The uncovertebral joints are normal without foraminal stenosis. Mildly prominent posterior cervical lymph nodes are likely related to patient's HIV infection.. THORACIC SPINE: There are 12 rib-bearing thoracic vertebrae. The alignment of the thoracic spine is normal. There is no acute fracture. Vertebral bodies are normal in height without compression fractures. Intervertebral disk heights are normal. There is no spinal canal stenosis. The facets are normal. The thoracic aorta is normal. No soft tissue abnormality is identified. LUMBAR SPINE: The alignment of the lumbar spine is normal. There is no acute fracture. Vertebral bodies are normal in height without compression fractures. Intervertebral disk heights are normal. There is no spinal canal stenosis. The facets are normal. The abdominal aorta is normal. There are multiple round perirectal lymph nodes, which are prominent. The largest measures 1.4 x 9.6 cm (series 4 image 270).. IMPRESSION: 1. No acute intracranial abnormality. 2. No evidence of acute fracture in the cervical, thoracic, or lumbar spine. 3. Multiple prominent perirectal lymph nodes. These may be seen in the setting of proctitis or possibly a rectal neoplasm. Recommend proctoscopy as clinically warranted. Dictated by: Tarik Stewart M.D. The radiology attending physician has personally reviewed this study, and had reviewed and/or edited this written report and agrees with it. Electronically signed by: Agatha Castellano M.D. Leighann Vargas DO IMG CT PROCEDURES Final Resu lt * CT Chest Abdomen Pelvis W Contrast (10/27/2022 9:21 PM CDT) Anatomical Region Laterality Modality Body N/A Computed Tomogra phy 10/27/2022 9:37 PM CDT Impressions 10/28/2022 8:32 AM CDT 1. ??No evidence of visceral traumatic injury. 2. ??Nonspecific mildly prominent superior rectal chain lymph nodes. This could be correlated with proctoscopy if clinically warranted. Dictated by: Jorge Moran M.D. The radiology attending physician has personally reviewed this study, and had reviewed and/or edited this written report and agrees with it. Electronically signed by: Dimas Fung M.D. Narrative 10/28/2022 8:32 AM CDT EXAMINATION: ??Computed tomography of the chest, abdomen and pelvis with intravenous contrast HISTORY: Suicide attempt. TECHNIQUE: ??Transaxial computed tomographic images of the chest, abdomen and pelvis were obtained with intravenous contrast according to the standard protocol after the uneventful administration of 68 mL Opti-Ray 350 intravenous contrast. COMPARISON: None. FINDINGS: ?? Chest: There is no supraclavicular, axillary, mediastinal or hilar lymphadenopathy. ??The heart is normal in size. ??No pericardial effusion. ??There is mild residual thymic tissue in the anterior mediastinum. ??Mild bilateral gynecomastia. ??Small hiatal hernia. The lung windows show no confluent consolidation, pleural effusion or pneumothorax. ??There is no suspicious pulmonary nodule. ??Mild left lower lobe subsegmental atelectasis. Abdomen/Pelvis: The liver and gallbladder are normal. ??The spleen is normal. Pancreas and adrenal glands are normal. ??Kidneys enhance symmetrically. ??No hydronephrosis. ??Simple left renal cyst. ??Urinary bladder is normal. ??Fat and bowel-containing right inguinal hernia. There are mildly prominent lymph nodes along the superior rectal chain. No aggressive osseous lesion or acute fracture. Procedure Note Dimas Fung MD - 10/28/2022 EXAMINATION: Computed tomography of the chest, abdomen and pelvis with intravenous contrast HISTORY: Suicide attempt. TECHNIQUE: Transaxial computed tomographic images of the chest, abdomen and pelvis were obtained with intravenous contrast according to the standard protocol after the uneventful administration of 68 mL Opti-Ray 350 intravenous contrast. COMPARISON: None. FINDINGS: Chest: There is no supraclavicular, axillary, mediastinal or hilar lymphadenopathy. The heart is normal in size. No pericardial effusion. There is mild residual thymic tissue in the anterior mediastinum. Mild bilateral gynecomastia. Small hiatal hernia. The lung windows show no confluent consolidation, pleural effusion or pneumothorax. There is no suspicious pulmonary nodule. Mild left lower lobe subsegmental atelectasis. Abdomen/Pelvis: The liver and gallbladder are normal. The spleen is normal. Pancreas and adrenal glands are normal. Kidneys enhance symmetrically. No hydronephrosis. Simple left renal cyst. Urinary bladder is normal. Fat and bowel-containing right inguinal hernia. There are mildly prominent lymph nodes along the superior rectal chain. No aggressive osseous lesion or acute fracture. IMPRESSION: 1. No evidence of visceral traumatic injury. 2. Nonspecific mildly prominent superior rectal chain lymph nodes. This could be correlated with proctoscopy if clinically warranted. Dictated by: Jorge Moran M.D. The radiology attending physician has personally reviewed this study, and had reviewed and/or edited this written report and agrees with it. Electronically signed by: Dimas Fung M.D. Leighann Vargas DO IMG CT PROCEDURES Final Resu lt * Urinalysis reflex to microscopic and culture Urine (10/27/2022 8:13 PM CDT) Color, ur Straw Yellow [facility] Clarity, ur Clear Clear [facility] Specific gravity, ur 1.021 1.003 - 1.030 [facility] pH, urine 7.0 [facility] Protein, ur ql Trace Negative [facility] Glucose, ur ql Negative Negative [facility] Ketones, ur Negative Negative [facility] Bilirubin, ur Negative Negative [facility] Blood[facility] ur Negative Negative [facility] Urobilinogen, ur <2.0 <2.0 mg/dL [facility] Nitrite, ur Negative Negative [facility] Leukocyte esterase, ur Negative Negative [facility] UA reflex comment Reflex conditions for microscopic UA and culture not met. [facility] Urine 10/27/2022 8:13 PM CDT 10/27/2022 8:25 PM CDT Narrative [facility] - 10/27/2022 8:54 PM CDT ?? Urine pH is affected by diet, medications, systemic acid-base disturbances, and renal tubular function. ??pH may affect urinary stone formation. ??For example, urine pH below 6.0 may help reduce the tendency for calcium phosphate stones and pH greater than 6.0 may reduce the tendency for uric acid stone formation. Source: [facility] [employer]. Last revised 08-02-2017 Leighann aVrgas DO LAB MICROBIOLOGY - GENERAL O RDERABLES Final Result [facility] Department [place] [address] * Drugs of Abuse Screen, Urine without Confirmation (10/27/2022 8:13 PM CDT) Amphetamine, ur Not Detected CutOff 500ng/mL [facility] Comment: Interpretive Data - Amphetamines: ??Samples containing greater than 500 ng/mL d-methamphetamine ??or other cross-reacting amphetamine compounds are reported as positive. ??Amphetamine immunoassays are subject to significant false positive rates due to cross-reactivity of non-amphetamine drugs. Current Interpretive Data was last reviewed 2018. Barbiturates, ur Not Detected CutOff 200ng/mL [facility] Comment: Interpretive Data - Barbiturates: ??Samples containing greater than 200 ng/mL secobarbital or other cross-reacting barbiturate compounds are reported as positive. ??False positive and false negative results are possible. Current Interpretive Data was last reviewed 2018. Benzodiazepines, ur Not Detected CutOff 100ng/mL [facility] Comment: Interpretive Data - Benzodiazepines: ??Samples containing greater than 100 ng/mL nordiazepam or other cross-reacting compounds are reported as positive. ?? False positive and false negative results are possible. ?? Current Interpretive Data was last reviewed 2018. Cannabinoids, ur Not Detected CutOff 50 ng/mL [facility] Cocaine, ur Not Detected CutOff 150ng/mL [facility] Comment: Interpretive Data - Cocaine: ??Samples containing greater than 150 ng/mL benzoylecgonine or other cross-reacting compounds are reported as positive. False positive and false negative results are possible. Current Interpretive Data was last reviewed 2018. Fentanyl, Ur Not Detected Cutoff 1 ng/mL [facility] Comment: Interpretive Data - Fentanyls: ??Samples containing greater than 1 ng/mL fentanyl or other cross-reacting fentanyl compounds are reported as detected. ??False positive and false negative results are possible. Current Interpretive Data was last reviewed 2019. Methadone, ur Not Detected CutOff 300ng/mL [facility] Comment: Interpretive Data - Methadone: ??Samples containing greater than 300 ng/mL d,l-methadone or other cross-reacting compounds are reported as positive. ??False positive and false negative results are possible. Current Interpretive Data was last reviewed 2018. Opiates, ur Not Detected CutOff 300ng/mL [facility] Comment: Interpretive Data - Opiates: ??Samples containing greater than 300 ng/mL morphine or other cross-reacting compounds are reported as positive. ??False positive and false negative results are possible. Current Interpretive Data was last reviewed 2018. Oxycodone, ur Not Detected CutOff 100ng/mL [facility] Comment: Interpretive Data - Oxycodone: ??Samples containing greater than 100 ng/mL oxycodone or other cross-reacting compounds are reported as positive. ??False positive and false negative results are possible. ?? Current Interpretive Data was last reviewed 2018. Phencyclidine, ur Not Detected CutOff 25 ng/mL [facility] Comment: Interpretive Data - Phencyclidine: ??Samples containing greater than 25 ng/mL phencyclidine or other cross-reacting compounds are reported as positive. ??False positive and false negative results are possible. ?? Current Interpretive Data was last reviewed 2018. Urine Creatinine 133 mg/dL [facility] Comment: Interpretive Data Urine Creatinine: < 10 mg/dL is extremely dilute = or > 10 but < 20 mg/dL is dilute = or > 20 mg/dL is normal Current Interpretive Data was last revised on 2017. Urine 10/27/2022 8:13 PM CDT 10/27/2022 8:25 PM CDT N[facility]ative [facility] - 10/27/2022 9:06 PM CDT Drug of Abuse screening is performed by immunoassay for medical purposes only. ??This is not to be used for Pain Management purposes. Leighann Vargas DO LAB URINE ORDERABLES Final R esult [facility] Department [place] [address] * (ABNORMAL) Lipid panel (10/27/2022 7:43 PM CDT) Pathologist [facility] Cholesterol 121 30 - 199 mg/dL [facility] Comment: Interpretive Data Ages < or = [...] Data was last revised on 2018. Triglycerides 47 <=149 mg/dL [facility] Comment: Interpretive Data Ages < or = [...] Data was last revised on 2018. HDL 36(L) >=40 mg/dL [facility] Comment: Interpretive Data Ages < or = [...] was last revised on 2018. LDL, calculated 76 <=129 mg/dL [facility] Comment: Interpretive Data Ages < or = [...] was last revised on 2018. Non-HDL Cholesterol 85 mg/dL [facility] Comment: Interpretive Data Ages < or = [...] last revised on 2018. Chol/HDL ratio 3 [facility] Blood 10/27/2022 7:43 PM CDT 10/27/2022 7:56 PM CDT us Rosa Isela Rios MD LAB BLOOD ORDERABLES Final R esult [facility] [place] [address] * TSH reflex to free T4 (10/27/2022 7:43 PM CDT) TSH 2.14 0.30 - 4.20 mcIUnit/mL [facility] Blood 10/27/2022 7:43 PM CDT 10/27/2022 7:56 PM CDT Leighann Vargas DO LAB BLOOD ORDERABLES Final R esult Performing Organization Address City/[facility] [[email or web address]] Co de Phone Number [facility] [place] [address] * Ethanol (10/27/2022 7:43 PM CDT) Ethanol <10 <=10 mg/dL [facility] Comment: Interpretive Data Legal limit of intoxication > or = 80 mg/dL Levels > or = 400 mg/dL are potentially TOXIC. Current interpretive data was last revised on 2018. Blood 10/27/2022 7:43 PM CDT 10/27/2022 7:56 PM CDT Leighann Vargas DO LAB BLOOD ORDERABLES Final R esult Performing Organization Address City/[facility] [[email or web address]] Co de Phone Number [facility] [place] [address] * Salicylate level (10/27/2022 7:43 PM CDT) Salicylate <9.0 mg/dL [facility] Blood 10/27/2022 7:43 PM CDT 10/27/2022 7:56 PM CDT Leighann Vargas DO LAB BLOOD ORDERABLES Final R esult Performing Organization Address City/State/[facility] [[email or web address]] Co de Phone Number [facility] [address] [facility] [place] [address] * Acetaminophen level (10/27/2022 7:43 PM CDT) Pathologist [facility] Acetaminophen <5.0 mcg/mL [facility] Comment: Interpretive Data Significant hepatic injury may occur and treatment with n-acetyl cysteine is generally recommended if the acetaminophen level exceeds: 150 mcg/mL at 4 hours after ingestion ??75 mcg/mL at 8 hours after ingestion ??38 mcg/mL at 12 hours after ingestion ??19 mcg/mL at 16 hours after ingestion Current interpretive data was last revised on 2007. Blood 10/27/2022 7:43 PM CDT 10/27/2022 7:56 PM CDT Leighann Vargas DO LAB BLOOD ORDERABLES Final R esult Performing Organization Address City/[facility]/ZIP Co de Phone Number [facility] [place] [address] * Check Sample (10/27/2022 7:42 PM CDT) Pathologist [facility] ABO Rh A Positive [facility] HCLL OTHER 10/27/2022 7:42 PM CDT 10/27/2022 7:54 PM CDT Elkin Fisher MD LAB BLOOD ORDERABLES Final Re sult Performing Organization Address City/[facility]/[place] [address] * (ABNORMAL) HIV-1 RNA PCR, quantitative (10/27/2022 7:42 PM CDT) Pathologist [facility] HIV-1 RNA Detected( A) [facility] Comment: The quantifiable range of this assay is 20 copies/mL to 10,000,000 copies/mL (1.30 log copies/mL to 7.00 log copies/mL). ??Testing was performed by the NEERU 6800 HIV-1 Test([employer] Testing performed at [facility] Current Interpretive Data was last revised on 2021. HIV-1 RNA, copies/mL 18,900 copies/mL [facility] HIV-1 RNA, log 4.28 log cps/mL [facility] Blood 10/27/2022 7:42 PM CDT 10/27/2022 7:54 PM CDT Leighann Vargas DO LAB MICROBIOLOGY - GENERAL O RDERABLES Final Result [facility] Department [place] [address] * (ABNORMAL) T-helper cells (CD4) count (10/27/2022 7:42 PM CDT) [facility] CD4 pct 6(L) 31 - 64 % [facility] CD4 Absolute 87(L) 365 - 1,294 cells/mcL [facility] Comment:Repeated and verifie d. Blood 10/27/2022 7:42 PM CDT 10/27/2022 7:49 PM CDT Leighann Vargas DO LAB BLOOD ORDERABLES Final R esult [facility] Department [place] [address] * POCT creatinine (10/27/2022 7:33 PM CDT) [facility] Creatinine POC 0.9 0.7 - 1.3 mg/dL [facility] Blood 10/27/2022 7:33 PM CDT 10/27/2022 7:33 PM CDT Elkin Fisher MD LAB POCT ORDERABLES - DEVICE Final Result [facility] Department [place] [address] * XR Pelvis 1 or 2 Views (10/27/2022 7:24 PM CDT) Anatomical Region Laterality Modality Body, Pelvis N/A Computed Radiogr aphy 10/27/2022 7:27 PM CDT Impressions 10/27/2022 8:31 PM CDT Chest: Lungs are clear without pneumonic consolidation or pulmonary edema. ??No pneumothorax or pleural effusion. ??Cardiomediastinal silhouette is within normal limits. Pelvis: Bilateral hips are in expected position on single view radiograph. ??No proximal femoral fracture. ??No displaced pelvic fracture. ??There are loops of bowel herniated into an enlarged scrotum. Dictated by: Romy Bartlett MD The radiology attending physician has personally reviewed this study, and had reviewed and/or edited this written report and agrees with it. Electronically signed by: Tin Da Silva M.D. Narrative 10/27/2022 8:31 PM CDT EXAMINATION: XR CHEST 1 VIEW, XR PELVIS 1 OR 2 VIEWS HISTORY: Fall COMPARISON: None available. Procedure Note Tin Da Silva MD - 10/27/2022 EXAMINATION: XR CHEST 1 VIEW, XR PELVIS 1 OR 2 VIEWS HISTORY: Fall COMPARISON: None available. IMPRESSION: Chest: Lungs are clear without pneumonic consolidation or pulmonary edema. No pneumothorax or pleural effusion. Cardiomediastinal silhouette is within normal limits. Pelvis: Bilateral hips are in expected position on single view radiograph. No proximal femoral fracture. No displaced pelvic fracture. There are loops of bowel herniated into an enlarged scrotum. Dictated by: Romy Bartlett MD The radiology attending physician has personally reviewed this study, and had reviewed and/or edited this written report and agrees with it. Electronically signed by: Tin Da Silva M.D. Leighann Vargas DO IMG XR PROCEDURES Final Resu lt * XR Chest 1 View (10/27/2022 7:24 PM CDT) Anatomical Region Laterality Modality Body, Chest N/A Computed Radiogr aphy 10/27/2022 7:27 PM CDT Impressions 10/27/2022 8:31 PM CDT Chest: Lungs are clear without pneumonic consolidation or pulmonary edema. ??No pneumothorax or pleural effusion. ??Cardiomediastinal silhouette is within normal limits. Pelvis: Bilateral hips are in expected position on single view radiograph. ??No proximal femoral fracture. ??No displaced pelvic fracture. ??There are loops of bowel herniated into an enlarged scrotum. Dictated by: Romy Bartlett MD The radiology attending physician has personally reviewed this study, and had reviewed and/or edited this written report and agrees with it. Electronically signed by: Tin Da Silva M.D. Narrative 10/27/2022 8:31 PM CDT EXAMINATION: XR CHEST 1 VIEW, XR PELVIS 1 OR 2 VIEWS HISTORY: Fall COMPARISON: None available. Procedure Note Tin Da Silva MD - 10/27/2022 EXAMINATION: XR CHEST 1 VIEW, XR PELVIS 1 OR 2 VIEWS HISTORY: Fall COMPARISON: None available. IMPRESSION: Chest: Lungs are clear without pneumonic consolidation or pulmonary edema. No pneumothorax or pleural effusion. Cardiomediastinal silhouette is within normal limits. Pelvis: Bilateral hips are in expected position on single view radiograph. No proximal femoral fracture. No displaced pelvic fracture. There are loops of bowel herniated into an enlarged scrotum. Dictated by: Romy Bartlett MD The radiology attending physician has personally reviewed this study, and had reviewed and/or edited this written report and agrees with it. Electronically signed by: Tin Da Silva M.D. Leighann Vargas DO IMG XR PROCEDURES Final Resu lt * eGFR (10/27/2022 7:16 PM CDT) [facility] eGFR >90 90 - 130 mL/min/1. 73 m2 JOE [facility]WARD Comment: Interpretive Data Reference Interval Normal ?>/= [...] interpretive data was last reviewed 2021. Blood 10/27/2022 7:16 PM CDT 10/27/2022 7:39 PM CDT Leighann Vargas DO LAB BLOOD ORDERABLES Final R esult [facility] Department [place] [address] * Differential, auto (10/27/2022 7:16 PM CDT) Neutrophil abs 2.0 1.7 - 6.5 K/cumm [facility] Imm gran abs 0.0 0.0 - 0.1 K/cumm [facility] Lymphocyte abs 1.7 0.8 - 3.3 K/cumm [facility] Monocyte abs 0.3 0.2 - 0.8 K/cumm [facility] Eosinophil abs 0.3 0.0 - 0.5 K/cumm [facility] Basophil abs 0.0 0.0 - 0.1 K/cumm [facility] Neutrophil pct 46.4 % [facility] Comment: Interpretive Data Percent cell count reference ranges are not reported, since discordance with absolute values may lead to misinterpretation of CBC data. Current Interpretive Data was last revised on 2017. Imm gran pct 0.2 % [facility] Comment: Interpretive Data Percent cell count reference ranges are not reported, since discordance with absolute values may lead to misinterpretation of CBC data. Current Interpretive Data was last revised on 2017. Lymphocyte pct 39.9 % [facility] Comment: Interpretive Data Percent cell count reference ranges are not reported, since discordance with absolute values may lead to misinterpretation of CBC data. Current Interpretive Data was last revised on 2017. Monocyte pct 6.7 % [facility] Comment: Interpretive Data Percent cell count reference ranges are not reported, since discordance with absolute values may lead to misinterpretation of CBC data. Current Interpretive Data was last revised on 2017. Eosinophil pct 6.3 % [facility] Comment: Interpretive Data Percent cell count reference ranges are not reported, since discordance with absolute values may lead to misinterpretation of CBC data. Current Interpretive Data was last revised on 2017. Basophil pct 0.5 % [facility] Comment: Interpretive Data Percent cell count reference ranges are not reported, since discordance with absolute values may lead to misinterpretation of CBC data. Current Interpretive Data was last revised on 2017. Blood 10/27/2022 7:16 PM CDT 10/27/2022 7:39 PM CDT Leighann Vargas DO LAB BLOOD ORDERABLES Final R esult [facility] Department [place] [address] * Type and screen (10/27/2022 7:16 PM CDT) ABO Rh A Positive [facility] [place], indirect Negative [facility] Blood 10/27/2022 7:16 PM CDT 10/27/2022 7:32 PM CDT Narrative [facility]E [facility] - 10/27/2022 8:21 PM CDT Has the patient had Daratumumab or Isatuximab in the past 6 months?->Unknown us Leighann Vargas DO LAB BLOOD BANK TEST ORDERABL ES Final Result [facility] Department [place] [address] * (ABNORMAL) Comprehensive metabolic panel (10/27/2022 7:16 PM CDT) Pathologist [facility] Sodium 137 135 - 145 mmol/L [facility] Potassium, pl 4.7 3.3 - 4.9 mmol/L [facility] Chloride 101 97 - 110 mmol/L [facility]ER [facility] CO2 30 22 - 32 mmol/L [facility] Anion gap 6 2 - 15 mmol/L [facility] BUN 12 8 - 25 mg/dL [facility] Creatinine 0.82 0.80 - 1.30 mg/dL [facility] Glucose 90 70 - 199 mg/dL [facility] Comment: Interpretive Data Fasting glucose [...] 2022. Calcium 9.4 8.5 - 10.3 mg/dL [facility] Bilirubin, total 0.2 0.1 - 1.2 mg/dL [facility] Protein, pl 9.6(H) 6.5 - 8.5 g/dL [facility] Albumin 4.1 3.5 - 5.0 g/dL [facility] Alk phos 94 40 - 130 Units/L [facility] ALT 24 7 - 55 Units/L [facility] AST 30 10 - 50 Units/L [facility] Blood 10/27/2022 7:16 PM CDT 10/27/2022 7:39 PM CDT Leighann DejesusNguyenlalo Vargas LAB BLOOD ORDERABLES Final R esult Performing Organization Address City/[facility]/ZIP Co de Phone Number [facility] Department [place] [address] * (ABNORMAL) CBC with auto differential (10/27/2022 7:16 PM CDT) WBC 4.3 3.8 - 9.9 K/cumm [facility] Hgb 13.5 13.0 - 17.5 g/dL [facility] Hct 44.0 38.9 - 50.3 % [facility] Plt 320 150 - 400 K/cumm [facility] MPV 9.6 9.1 - 12.3 fL [facility] RBC 5.88(H) 4.30 - 5.80 M/cumm [facility] MCV 74.8(L) 81.3 - 96.4 fL [facility] MCH 23.0(L) 27.1 - 33.3 pg [facility] MCHC 30.7(L) 32.3 - 35.7 g/dL [facility] RDW CV 19.8(H) 11.1 - 14.9 % [facility] RDW SD 51.5(H) 35.7 - 48.1 fL [facility] NRBC abs 0.00 0.00 - 0.01 K/cumm [facility] Blood 10/27/2022 7:16 PM CDT 10/27/2022 7:39 PM CDT Leighann Vargas LAB BLOOD ORDERABLES Final R esult Performing Organization Address City/[facility]/ZIP Co de Phone Number JOE [facility] [place] [address] documented in this encounter Visit Diagnoses Diagnosis Depressive disorder- Primary Depressive disorder, not elsewhere classified Suicide attempt (HCC) Suicide and self-inflicted injury by unspecified means Right hip pain Pain in joint, pelvic region and thigh HIV infection, unspecified symptom status (HCC) Major depression, chronic History of right inguinal hernia Fall down steps, initial encounter Feared condition not demonstrated Person with feared complaint in whom no diagnosis was made Suicide attempt (HCC) Suicide and self-inflicted injury by unspecified means Suicidal ideation HIV (human immunodeficiency virus infection) (HCC) Human immunodeficiency virus [HIV] disease Skin lesion Unspecified disorder of skin and subcutaneous tissue Painless rectal bleeding documented in this encounter Admitting Diagnoses Diagnosis Suicide attempt (HCC) Suicide and self-inflicted injury by unspecified means Suicidal ideation documented in this encounter Administered Medications Inactive Administered Medications - up to 3 most recent administrations Medication Order MAR Action Action Date Dose Rate Site acetaminophen (TYLENOL) tablet 1,000 mg 1,000 mg, oral, Once, On 10/28/22 at 1423, For 1 dose Given 10/28/2022 2:32 PM CDT 1,000 mg acetaminophen (TYLENOL) tablet 1,000 mg 1,000 mg, oral, Once, On 10/28/22 at 2331, For 1 dose Given 10/28/2022 11:36 PM CDT 1,000 mg acetaminophen (TYLENOL) tablet 1,000 mg 1,000 mg, oral, 3 times daily PRN, 1st line for pain, headaches, fever, Starting on 11/06/22 at 1015 acetaminophen (TYLENOL) tablet 500 mg 500 mg, oral, Every 6 hours PRN, 1st line for pain, Starting on 10/29/22 at 1524 Given 11/01/2022 8:21 PM CDT 500 mg Given 11/01/2022 4:33 PM CDT 500 mg Given 11/01/2022 8:22 AM CDT 500 mg acetaminophen (TYLENOL) tablet 650 mg 650 mg, oral, Every 6 hours PRN, 1st line for pain, Starting on Lara 11/02/22 at 1014 Given 11/06/2022 9:00 AM CDT 650 mg Given 11/05/2022 9:14 AM CDT 650 mg Given 11/04/2022 9:16 AM CDT 650 mg tyqwcaqtjqj-bhwidcwmugtdh-kvixrhrya (BIKTARVY) 50-200-25 mg per tablet 1 tablet 1 tablet, oral, Daily, First dose on 10/30/22 at 1215, May be dissolved in 240 mL of water. Give 2 hrs before or 6 hrs after MVI, antacids, or other products containing sucralfate, magnesium, aluminum, iron, or zinc., Indications: HIV infectionIndications:HIV infection Given 11/07/2022 8:49 AM CDT 1 tablet Given 11/06/2022 9:32 AM CDT 1 tablet Given 11/05/2022 9:14 AM CDT 1 tablet cetirizine (ZyrTEC) tablet 10 mg 10 mg, oral, Daily PRN, allergies, Starting on Sun11/03/22 at 1146 Given 11/03/2022 12:32 PM CDT 10 mg diclofenac sodium (VOLTAREN) 1 % gel 4 g 4 g, topical, 3 times daily, First dose on Sun11/06/22 at 1200, Use dosing card to measure dose, Apply to affected area: other Given 11/07/2022 9:41 AM CDT 4 g Given 11/06/2022 4:14 PM CDT 4 g Given 11/06/2022 12:53 PM CDT 4 g gadoterate meglumine injection 14 mL 14 mL, intravenous, Once in imaging, contrast, Starting on 10/28/22 at 0152, For 1 dose Contrast Given 10/28/2022 1:52 AM CDT 14 mL haloperidoL (HALDOL) tablet 5 mg 5 mg, oral, Every 6 hours PRN, agitation, Starting on 10/29/22 at 1523 hydrOXYzine (ATARAX) tablet 10 mg 10 mg, oral, Every 4 hours PRN, anxiety, Starting on 10/29/22 at 1523 Given 11/01/2022 4:33 PM CDT 10 mg Given 11/01/2022 8:22 AM CDT 10 mg Given 10/31/2022 8:04 PM CDT 10 mg hydrOXYzine (ATARAX) tablet 25 mg 25 mg, oral, Every 4 hours PRN, anxiety, Starting on Lara 11/02/22 at 1014 Given 11/07/2022 8:49 AM CDT 25 mg Given 11/06/2022 4:30 PM CDT 25 mg Given 11/06/2022 9:00 AM CDT 25 mg ibuprofen (ADVIL,MOTRIN) tablet 600 mg 600 mg, oral, Once, On 10/28/22 at 1423, For 1 dose Given 10/28/2022 2:32 PM CDT 600 mg ioversoL (OPTIRAY 350) syringe 75 mL 75 mL, intravenous, Once in imaging, contrast, Starting on Sun10/27/22 at 2121, For 1 dose Contrast Given 10/27/2022 9:21 PM CDT 68 mL ketorolac (TORADOL) 15 mg/mL injection 15 mg 15 mg, intravenous, Once, On 10/28/22 at 0212, For 1 dose, For Adult IV push, administer over 15 seconds Given 10/28/2022 2:19 AM CDT 15 mg naproxen (NAPROSYN) tablet 250 mg 250 mg, oral, 2 times daily PRN, other, breakthrough pain, Starting on Sun11/03/22 at 2123 Given 11/05/2022 9:26 PM CDT 250 mg Given 11/04/2022 9:25 PM CDT 250 mg Given 11/03/2022 9:45 PM CDT 250 mg Le ft Upper Hip naproxen (NAPROSYN) tablet 500 mg 500 mg, oral, 3 times daily PRN, other, breakthrough pain, Starting on Sun11/06/22 at 1015 Given 11/07/2022 8:49 AM CDT 500 mg oxyCODONE (ROXICODONE) tablet 5 mg 5 mg, oral, Once, On 10/28/22 at 0212, For 1 dose, Indications: PainIndications:Pain Given 10/28/2022 2:19 AM CDT 5 mg polyethylene glycol (MIRALAX) packet 17 g 17 g, oral, Daily, First dose on Sun10/30/22 at 1400, Indications: constipationIndications:constipation Given 11/05/2022 9:14 AM CDT 17 g Given 11/04/2022 9:17 AM CDT 17 g Given 11/03/2022 1:55 PM CDT 17 g sertraline (ZOLOFT) tablet 50 mg 50 mg, oral, Daily, First dose on Sun10/30/22 at 1200 Given 11/07/2022 8:49 AM CDT 50 mg Given 11/06/2022 9:00 AM CDT 50 mg Given 11/05/2022 9:14 AM CDT 50 mg traZODone (DESYREL) tablet 100 mg 100 mg, oral, Nightly PRN, sleep, Starting on 10/29/22 at 1523 Given 11/06/2022 9:37 PM CDT 100 mg Given 11/05/2022 9:26 PM CDT 100 mg Given 11/04/2022 9:25 PM CDT 100 mg documented in this encounter Active and Recently Administered Medications Times are shown in CDT. Scheduled Medication Order 11/05/2022 11/06/2022 11/07/2022 bictegravir-emtricitabi ne-tenofovir (BIKTARVY) 50-200-25 mg per tablet 1 tablet 1 tablet, oral, Daily, First dose on Sun10/30/22 at 1215, May be dissolved in 240 mL of water. Give 2 hrs before or 6 hrs after MVI, antacids, or other products containing sucralfate, magnesium, aluminum, iron, or zinc., Indications: HIV infection 0914 (Given - Provider: Win Ardon RN) 0932 (Given - Provider: Yelena Burrell RN) 0849 (Given - Provider: Yelena Burrell RN) diclofenac sodium (VOLTAREN) 1 % gel 4 g 4 g, topical, 3 times daily, First dose on Sun11/06/22 at 1200, Use dosing card to measure dose, Apply to affected area: other 1253 (Given - Provider: Yelena Burrell RN)1614 (Given - Provider: Yelena Burrell RN) 0112 (Not Given - Provider: Desiree Goodman RN - Reason: Patient/family refused)0941 (Given - Provider: Yelena Burrell RN) polyethylene glycol (MIRALAX) packet 17 g 17 g, oral, Daily, First dose on Sun10/30/22 at 1400, Indications: constipation 0914 (Given - Provider: Win Ardon RN) 1135 (Not Given - Provider: Yelena Burrell RN - Reason: Patient/family refused - Comment: Patient declined medication at 0900) 0945 (Not Given - Provider: Yelena Burrell RN - Reason: Patient/family refused) sertraline (ZOLOFT) tablet 50 mg 50 mg, oral, Daily, First dose on Sun10/30/22 at 1200 0914 (Given - Provider: Win Ardon RN) 0900 (Given - Provider: Yelena Burrell RN) 0849 (Given - Provider: Yelena Burrell RN) PRN Medication Order 11/05/2022 11/06/2022 11/07/2022 acetaminophen (TYLENOL) tablet 1,000 mg 1,000 mg, oral, 3 times daily PRN, 1st line for pain, headaches, fever, Starting on 11/06/22 at 1015 acetaminophen (TYLENOL) tablet 650 mg (CANCELED) 650 mg, oral, Every 6 hours PRN, 1st line for pain, Starting on Lara 11/02/22 at 1014 0914 (Given - Provider: Win Ardon RN) 0900 (Given - Provider: Yelena Burrell RN) cetirizine (ZyrTEC) tablet 10 mg 10 mg, oral, Daily PRN, allergies, Starting on Sun11/03/22 at 1146 haloperidoL (HALDOL) tablet 5 mg 5 mg, oral, Every 6 hours PRN, agitation, Starting on 10/29/22 at 1523 hydrOXYzine (ATARAX) tablet 25 mg 25 mg, oral, Every 4 hours PRN, anxiety, Starting on Lara 11/02/22 at 1014 0914 (Given - Provider: Win Ardon RN)2126 (Given - Provider: Amira Juan RN) 0900 (Given - Provider: Yelena Burrell RN)1630 (Given - Provider: Yelena Burrell RN) 0849 (Given - Provider: Yelena Burrell RN) naproxen (NAPROSYN) tablet 250 mg (CANCELED) 250 mg, oral, 2 times daily PRN, other, breakthrough pain, Starting on Sun11/03/22 at 2123 2126 (Given - Provider: Amira Juan RN) naproxen (NAPROSYN) tablet 500 mg 500 mg, oral, 3 times daily PRN, other, breakthrough pain, Starting on 11/06/22 at 1015 0849 (Given - Provider: Yelena Burrell RN) traZODone (DESYREL) tablet 100 mg 100 mg, oral, Nightly PRN, sleep, Starting on 10/29/22 at 1523 2126 (Given - Provider: Amira Juan RN) 2136 (Given - Provider: Desiree Goodman, RN) documented in this encounter Orders Medications Ordered That Prasad ht Not Have Been Administered Count Last Ordered Date First Ordered Date acetaminophen (TYLENOL) tablet 1,000 mg 1 0 11/06/2022 haloperidoL (HALDOL) tablet 5 mg 1 10/30/19 23 Lab Orders Without Results Count Last Ordered D ate First Ordered Date POCT CREATININE - DEVICE 1 10/27/2022 Nursing Count Last Ordered Date First Orde red Date DISCHARGE CALL PROVIDER 1 11/06/2022 DISCHARGE INSTRUCTIONS 2 11/06/2022 MEASURE HEIGHT AND LENGTH 1 10/29/2022 TOBACCO CESSATION EDUCATION 1 10/29/2022 WEIGH PATIENT 1 10/29/2022 PSYCH MEDICAL BED 1 10/28/2022 CONTINUOUS PULSE OXIMETRY 1 10/27/2022 Consult Count Last Ordered Date First Orde red Date IP CONSULT TO INTERNAL MEDICINE 1 3 IP CONSULT TO NUTRITION SERVICES 1 10/30/19 IP CONSULT TO SOCIAL WORK 2 10/29/2022 IV Count Last Ordered Date First Orde red Date INSERT PERIPHERAL IV 1 10/27/2022 Admission Count Last Ordered Date First Orde red Date ADMIT TO INPATIENT 3 10/29/2022 3 Discharge Count Last Ordered Date First Orde red Date DISCHARGE PATIENT 1 11/06/2022 CORE MEASURES Count Last Ordered Date First Ord ered Date REASON FOR NO VTE PROPHYLAXIS AT ADMISSION 1 10/29/2022 documented in this encounter Care Teams Activities Manager Relationship Specialty Start Date End Date No, Physician PCP - General 10/27/22 10/11/23 Henrique Hardin MD Internal Medicine 10/27/22 10/11/23 documented as of this encounter
--- OUTSIDE RECORDS SUMMARY | 2024-08-10 03:35 | XMS_ITS | Encounter Summary ---
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 Informed him that he would need clearance from his doctor in order to return to therapy. Until we receive that clearance his chart will be puton hold - pt understood and agreeable. * Telephone Encounter - Yanique Castillo - 11/09/2020 10:39 AM CDT patient in pain still from surgery so c/c today Cosigned by Sindy Akers, PT at 11/09/2020 7:43 PM CDT documented in this encounter Plan of Treatment Not on file documented as of this encounter Visit Diagnoses Not on filedocumented in this encounter Care Teams Uniform [employer] Captain Relationship Specialty Start Date End Date Henrique Hardin MD PCP - General Internal Medicine 10/14/20 10/26/22 documented as of this encounter
--- OUTSIDE RECORDS SUMMARY | 2024-08-10 03:35 | XMS_ITS | Encounter Summary ---
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 ??Testing performed by the [facility] Molecular Infectious Disease Laboratory. The Novel Coronavirus Assay (COVID-19)Real Time RT-PCR assay is [...] No CERNER CH Comment:Testing performed by : [facility], [address] [place] [address], [id number] Employeed in healthcare? No [facility]ER CH Comment:Testing performed by : [facility], [address] [place] [address], [id number] status? No C[facility]ER CH Comment:Testing performed by : [facility], [address] [place] [address], [id number] Group care resident? No [facility] CH Comment:Testing performed by : [facility], [address] [place] [address], [id number] Hospitalized? Unknown [facility]ER CH Comment:Testing performed by : [facility], [address] [place] [address], [id number] Is patient in ICU? Unknown [facility]ERNER CH Comment:Testing performed by : [address], [address] Symptomatic as defined by CDC? No CERNER CH Comment:Testing performed by : [facility], [address] [place] [address], [id number] Nasopharyngeal 11/03/2020 8: 25 AM CDT 11/03/2020 3:24 PM CDT Narrative JOE WYNN - 11/04/2020 12:07 AM CDT What is the reason for testing?->Screening prior to scheduled procedure or surgery us Katlyn Wolff MD LAB MICROBIOLOGY - GENERAL O RDERABLES Final Result JOE [address] Department [place] [address] documented in this encounter Visit Diagnoses Diagnosis Pre-procedure lab exam Pre-procedural laboratory examination documented in this encounter Care Teams Dip Tube Assembler Machine Relationship Specialty Start Date End Date Henrique Hardin MD PCP - General Internal Medicine 10/14/20 10/26/22 documented as of this encounter
--- OUTSIDE RECORDS SUMMARY | 2024-08-10 03:35 | XMS_ITS | Encounter Summary ---
Author Organization [facility] Healthcare Address [address] [place] [address] Care Team Providers Care Grades 6 Through 8 Teacher Name Role Phone No, Physician Primary Care Provider [phone] Mady Sullivan MD Primary Care Provider Henrique Hardin MD Unavailable [phone] No, Physician Unavailable Am[facility] Unavailable [phone] Encounter Details Date Type Department Care Team (Latest Contact Info) Description 10/11/2023 Ophth Exam Ophthalmology Marbella Joseph MD [address] [place], [place] [id number] Social History Tobacco Use Types Packs/Day Years Used Date Smoking Tobacco: Never Smokeless Tobacco: Never [facility] Utilities Answer Date Recorded In the past 12 months has [facility], gas, oil, or water Buddy threatened to shut off services in your [...] often do you attend chur ch or hindu services? Never 10/15/2023 Do you belong to any clubs o r organizations such as druze groups, unions, fraternal or athletic groups, or [...] Date Recorded PHQ-2 Total Score 4 10/15/2023 [facility] - [...] in a correction (including now)? No 10/15/2023 Personal Safety Answer Date Recorded Have you ever been in or are you currently in a harmful physical or emotional relationship or is someone making you feel afraid or unsafe? 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 Gender Identity Not on file Sexual Orientation [...] Entry Date Author No 10/03/2023 12:08 PM CDDragan Mcintosh LCSW documented in this encounter Plan of Treatment Not on file documented as of this encounter Visit Diagnoses Not on filedocumented in this encounter Eye Exam Visual Acuity (Snellen - Linear) Right eye Left eye Near cc 20/25 20/20 Tonometry (Tonopen, 1:41 PM) Right eye Left eye Pressure 15 18 Pupils Dark Light Shape React APD Right eye 3 2 Round Brisk None Left eye 3.5 2.5 Round Brisk None Visual Castro Right eye Left eye Full Full Extraocular Movement Right eye Left eye Full Full Neuro/Psych Oriented x3: Yes Slit Lamp Exam Right eye Left eye Lids/Lashes Normal Normal Conjunctiva/Sclera White and quiet White and nolberto et Cornea Clear Clear Anterior Chamber Deep and quiet Deep and quiet Iris Round and reactive Round and nataly ctive Lens Clear Clear Anterior Vitreous PVD Normal Fundus Exam Right eye Left eye Disc Normal, no pallor or edema Chelita l, no pallor or edema C/D Ratio 0.3 0.3 Macula Normal Normal Vessels Normal Normal Periphery 4 horseshoe tears - 3 temporally, 1 superotemporally; white without pressure white without pressure Care Teams Grades 6 Through 8 Teacher Relationship Specialty Start Date End Date No, Physician PCP - General 10/27/22 10/11/23 Mady Sullivan MD [address] [facility] [address], [place] [address] PCP - General Infectious Diseases 10/12/23 Henrique Hardin MD [address] [facility] [address] [place] [address] Internal Medicine 10/27/22 10/11/23 No, Physician 10/12/23 Amira Javed LCSW [address] [facility] ([facility]) Mailstop [phone] [place] [address] [employer] [employer] 10/29/23 10/30/23 documented as of this encounter
--- OUTSIDE RECORDS SUMMARY | 2024-08-10 03:35 | XMS_ITS | Encounter Summary ---
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 Provided clinic information if he hasany questions. documented in this encounter Plan of Treatment Not on file documented as of this encounter Visit Diagnoses Not on filedocumented in this encounter Care Teams Box Maker Wood Relationship Specialty Start Date End Date Henrique Hardin MD PCP - General Internal Medicine 10/14/20 10/26/22 documented as of this encounter
--- OUTSIDE RECORDS SUMMARY | 2024-08-10 03:35 | XMS_ITS | Encounter Summary ---
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 Provided information of next appointments and clinic phone number if he has any questions. documented in this encounter Plan of Treatment Not on file documented as of this encounter Visit Diagnoses Not on filedocumented in this encounter Care Teams Leader Tier Relationship Specialty Start Date End Date Henrique Hardin MD PCP - General Internal Medicine 10/14/20 10/26/22 documented as of this encounter
--- OUTSIDE RECORDS SUMMARY | 2024-08-10 03:35 | XMS_ITS | Encounter Summary ---
Author Organization [facility] Healthcare Address [address] [place] [address] Care Team Providers Care Polisher Hand Name Role Phone Henrique Hardin MD Primary Care Provider [phone] Reason for Visit * Reason Comments PT Initial Eval * Consultation (Routine) - Closed Specialty Diagnoses / Procedures Referred By Contac t Referred To Contact Physical Therapy Diagnoses 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HCC) Right foot drop Henrique Hardin MD Phone: tel: fax: [address] [phone] Referral ID Status Reason Start Date Expiration Date V isits Requested Visits Authorized [id number] Closed Specialty Services Required 10/18/2020 11/17/2021 24 24 Encounter Details Date Type Department Care Team (Late st Contact Info) Description 10/20/2020 9:00 AM CDT Therapy [facility] Rehabilitation Services at [address] [address] Sindy Akers, PT 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CMS/HCC) (Primary Dx); Right foot drop Social History Tobacco Use Types Packs/Day Years Used Date Smoking Tobacco: Never Assessed Sex and Gender Information Value Date Recorded Sex Assigned at Not on file Legal 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 1995 25 y.o. male Henrique Hardin MD [address] [place] [address] ICD-9-CM ICD-10-CM 1. 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[facility]) 323.82 G37.3 Ambulatory referral order to Physical Therapy - 2. Right foot drop 736.79 M21.371 Ambulatory referral order to Physical Therapy - Screenings: Abuse & Neglect: Concerns noted by patient, family, or therapist No (If yes, proceed to full screen) Functional & Activity Limitations & Restrictions/Barriers: Decreased safety during functional activities, Impaired gait, Impaired locomotion, Limitations in community activities, Limitations in functional capacity and performance, Limitations in home management, Performance in leisure activities, Performance in self-care ADL and Performance in sport activities Learner Needs: Barriers Identified: None. Persons Involved: Patient Patient Understands and Agrees: Yes Advance Directives: Patient has an advance directive: No If No, does patient want information: No Information was provided: No Patient brought a copy to the clinic. N/A Patient instructed to bring copy next visit: N/A C-SSRS (short version): Stanley Suicide Severity Rating Scale 1. Wish to be : No 2. Suicidal Thoughts: No 6. Suicide Behavior Question: No Answered YES to #1 or #2 = Provided patient with the [facility] Resource Information. Answered YES to #3 or YES to #6 with over one year marked = Behavioral Health Referral / Escort them over Answered YES to #4, 5, OR 6 with Within the last 3 months marked = 911 Patient Name and Birthday verified.Yes Pain: 0/10 Best Pain: 0/10 Worst Subjective: Pt currently c/o 0/10 pain. Onset: Pt states he first developed symptoms about 1 year ago starting with a limp through the R LE. Pt states his mother first noticed the R LE deviation but just ignored it. The amount of function slowly regressed over time to the point he had completely changed is gait pattern and had a significant foot drop. His first doctor just put the symptoms off and prescribed gabapentin for the nerve symptoms which has not helped. His new doctor has sent him here for therapy in order to improve the R LE function. He described his R LE as heavy with increased difficulty with muscle activation causing him to draghis foot. He has the most trouble with quick high impact movements such as running and jumping. He is able to negotiate the stairs without trouble but occasionally catches his toe when going up. Pt also reports increased low back pain over the past year. No imagining available. Pt has fallen 2 times in the past month; in the last year about 6 falls. PLOF: Independent with all ADLs, self care, transfers, community activities and gait Social History (includes premorbid condition, occupation, leisure activities): Pt is a 25 y.o. male who is right side dominant. Pt lives in an apartment. Railing present: Yes There are 15 steps to enter the home. Railing present: Yes He lives with no one who can not assist in household duties. Do you feel safe in your home? 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 Pt enjoys exercising and being active. Objective: NT = Not tested Flexibility: WFL Strength: * = increase in symptoms LE MMT Left Right Hip Flexion : 5 3+ Quadriceps : 5 5 Hip IR : 5 4+ Hip ext rot : 5 4 DF : 5 3+ Hamstrings : 5 4 Gluteus Raciel ---------: 5 4+ Gluteus Medius : 5 4+ 1st toe : 5 4- Special test: Clonus: (-) R and L Babinski: (-) R and L Posture: Upright posture with significant anterior pelvic tilt, lumbar lordosis and decreased weight bearing through the R LE. Gait: Pt ambulates at a brisk pace with increased unique ataxic gait. Due the R foot drop, hip flexion weakness and lack of attention pt has adopted a R hip drop during L stance in combination with aL pelvic shift, R hip circumduction, R trendelenburg with a hip hike, R LE IR with a R foot drop. Pt depends on the R lumbar spine to advance the R LE. Advanced Gait: Tandem ------- Several LOB with increased difficulty with R foot placement Braiding ------- Increased LOB with poor ability to clear R LE over/under L LE Backward ----- Wide JADEN with R foot trailing, slight path deviation Sidestepping - No LOB, R foot dragging when leading with L Therapist confirmed patient understanding of explanations and instructions at the end of therapy session: Yes Outcome Measures: Alex Balance: Functional Gait Assessment = LEFS = 39/80 - 51% impairment Treatment Provided: Total Therapy Visits: 1 Insurance: [employer] Henrique Hardin MD Surgery: none Eval/Progress: 10/20/20 Visit: 11/11/20 POC: Media - 2x/week - 01/12/21 Sent Do Progress: 11/17/20 Precautions: HIV positive Specific Treatment: Involved Side: RIGHT Initials Date AB 10/20/20 # of visits / Approved Start Time / End Time 9:00 / 9:55 Timed/Total Treatment Minutes 25 / 55 Pain In / Pain Out 0 / 0 POC Initial Eval ROM/Stretching 1. DKTC 2. PPT 1. 2x30 2. Seated 10x10 Strength 1. Sit to stand 1. 2x10 w/o band and x15 with green t-band Balance/Gait activities 1. Side stepping 2. Tandem [...] his diagnosis, HEP, gait and stair mechanics Issued HEP: 10/20/20: DKTC, sit to stand [...] all R LE MMT muscle groups - Patient/family involved in setting goals. Patient/family agrees with goals and treatment plan. Prognosis: Fair Planned Intervention: Home exercise instruction, Patient education, Range of motion exercise, Strengthening exercise, Endurance exercise, Neuromuscular re-education, Balance/coordination activities, Gait training, Postureinstruction, Body mechanics, Transfer / ADL training, Modalities to decrease pain and/or edema and Electrical stimulation for strengthening Assessment/Plan: Patient is a 25 y.o. male who presents with Diagnosis Plan 1. 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CMS/HCC) Ambulatory referral order to Physical Therapy - 2. Right foot drop Ambulatory referral order to Physical Therapy - who presents with impairments in strength, range of motion, motor control, gait, balance, endurance, posture. Functional/activity limitations include difficulty with ambulation, transfers, bed mobility, stairs, running, participating in sports, performing household tasks, standing prolonged periods, lifting, bending. History/personal factors that affect plan of care include comorbidities (HIV, syphilis, use of marijuana ), limited functional status at baseline, history of falls. Clinical/functional presentation as determined by the physical therapy evaluation is stable/predictable. Patient demonstrates decreased functional mobility due to the limitations listed above affecting is ability to complete ADL's. Patient is motivated to return to prior level of function. The patient would benefit from the skilled intervention of a physical therapist to address the impairments and functional limitations noted above. Frequency/Duration: 2x/week for 12 weeks - 01/12/21 No Shows: 0 Cancellations: 0 Attended # of visits: 1 Sindy Akers PT documented in this encounter Plan of Treatment Not on file documented as of this encounter Visit Diagnoses Diagnosis 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HCC)- Primary Other causes of myelitis Right foot drop Other acquired deformity of ankle and foot documented in this encounter Orders Outpatient Referral Count Last Ordered Date st Ordered Date AMB REFERRAL ORDER TO PHYSICAL THERAPY 1 documented in this encounter Care Teams Polisher Hand Relationship Specialty Start Date End Date Henrique Hardin MD PCP - General Internal Medicine 10/14/20 10/26/22 documented as of this encounter
--- OUTSIDE RECORDS SUMMARY | 2024-08-10 03:36 | XMS_ITS | Encounter Summary ---
Author Organization [facility] Address [address] [place] [address] Care Team Providers Care Pumper Gauger Name Role Phone Sobeida Bello MD, Frantz Carlisle Primary Care Provider [phone] Encounter Details Date Type Department Care Team (Late st Contact Info) Description 08/02/2017 1:42 PM CORPORATE ETHICS OFFICER - 08/03/2017 11:56 AM CORPORATE ETHICS OFFICER Hospital Encounter [facility] [address] [place] [address] [place] [address] [place] [address] Michel Beard MD [address] [facility] [address] [place] [address] Discharge Disposition: Discharge to home or self care Social History Tobacco Use Types Packs/Day Years Used Date Smoking Tobacco: Never Assessed Sex and Gender Information Value Date Recorded Sex Assigned at Not on file Legal Sex Male 11:02 PM CORPORATE ETHICS OFFICER Gender Identity Not on file Sexual Orientation Not on file documented as of this encounter Last Filed Vital Signs Vital Sign Reading Time Taken Comments Blood Pressure 156/111 08/03/2017 5:50 AM CORPORATE ETHICS OFFICER Pulse 71 08/03/2017 5:50 AM CORPORATE ETHICS OFFICER Temperature - - Respiratory Rate - - Oxygen Saturation 100% 08/03/2017 5:50 AM CORPORATE ETHICS OFFICER Inhaled Oxygen Concentration - - Weight 63.2 kg (139 lb 4.6 oz) 08/02/2017 2:22 P M CORPORATE ETHICS OFFICER Height 182.9 cm (6') 08/02/2017 2:22 PM CORPORATE ETHICS OFFICER Body Mass Index 18.89 08/02/2017 2:22 PM CORPORATE ETHICS OFFICER documented in this encounter Discharge Disposition Disposition Code Departure Means Destination Discharge to home or self care documented in this encounter Plan of Treatment Not on file documented as of this encounter Procedures Procedure Name Priority Date/Time Associated Diagnosis Comments N. GONORRHOEAE/C. TRACHOMATIS AMPLIFICATION TEST RTNm 08/03/2017 5:58 AM CORPORATE ETHICS OFFICER DISCHARGE LABORATORY CUMULATIVE REPORT 08/03/2017 12:00 AM CORPORATE ETHICS OFFICER DIFFERENTIAL AUTO Routine Gen Lab 08/02/2017 6:5 8 PM CORPORATE ETHICS OFFICER HIV GENOTYPE Routine Gen Lab 08/02/2017 6:58 PM CORPORATE ETHICS OFFICER BASIC METABOLIC PANEL, SERUM Routine Gen Lab 08/02/2017 6:58 PM CORPORATE ETHICS OFFICER CBC WITH AUTO DIFFERENTIAL Routine Gen Lab 08/02/2017 6:58 PM CORPORATE ETHICS OFFICER HEPATITIS C ANTIBODY Routine Gen Lab 08/02/2017 6:58 PM CORPORATE ETHICS OFFICER HEPATITIS B CORE ANTIBODY, TOTAL Routine Gen Lab 08/02/2017 6:58 PM CORPORATE ETHICS OFFICER HIV-1 RNA, QUANTITATIVE, PCR Routine Gen Lab 08/02/2017 6:58 PM CORPORATE ETHICS OFFICER TOXOPLASMA GONDII ANTIBODY, IGG Routine Gen Lab 08/02/2017 6:58 PM CORPORATE ETHICS OFFICER HEPATITIS B SURFACE ANTIBODY (IMMUNE STATUS) Routine Gen Lab 08/02/2017 6:58 PM CORPORATE ETHICS OFFICER HEPATITIS B SURFACE ANTIGEN Routine Gen Lab 08/02/2017 6:58 PM CORPORATE ETHICS OFFICER T-HELPER CELLS (CD4) COUNT Routine Gen Lab 08/02/2017 6:58 PM CORPORATE ETHICS OFFICER RPR TITER Routine Gen Lab 08/02/2017 6:37 PM CORPORATE ETHICS OFFICER FTA ANTIBODIES, IGG AND IGM Routine Gen Lab 08/02/2017 6:37 PM CORPORATE ETHICS OFFICER RPR Routine Gen Lab 08/02/2017 6:37 PM CORPORATE ETHICS OFFICER XR CHEST PA LATERAL 2 VIEWS Routine 08/02/2017 5:27 AM CORPORATE ETHICS OFFICER CT SOFT TISSUE NECK W CONTRAST Routine 08/02/2017 4:02 AM CORPORATE ETHICS OFFICER LEUKEMIA/LYMPHOMA STUDIES STAT 08/02/2017 1:12 AM CORPORATE ETHICS OFFICER MYCOLOGY (FUNGAL) CULTURE AND STAIN RTNm 08/02/2017 1:12 AM CORPORATE ETHICS OFFICER MYCOBACTERIOLOGY AFB CULTURE AND ACID-FAST STAIN RTNm 08/02/2017 1:12 AM CORPORATE ETHICS OFFICER AEROBIC AND ANAEROBIC CULTURE AND GRAM STAIN RTNm 08/02/2017 1:12 AM CORPORATE ETHICS OFFICER SURGICAL PATHOLOGY Routine 08/02/2017 12:57 AM CORPORATE ETHICS OFFICER REFERENCE LABORATORY MISCELLANEOUS TESTING 08/02/2017 12:00 AM CORPORATE ETHICS OFFICER SURGICAL PATHOLOGY 08/02/2017 12:00 AM CORPORATE ETHICS OFFICER URINALYSIS AND REFLEX TO MICROSCOPIC STAT 08/01/2017 11:44 PM CORPORATE ETHICS OFFICER HISTOPLASMA ANTIGEN RTNm 08/01/2017 11:44 PM CORPORATE ETHICS OFFICER URINE CULTURE RTNm 08/01/2017 11:44 PM CORPORATE ETHICS OFFICER RAPID HIV ED POC STAT 08/01/2017 10:23 PM CORPORATE ETHICS OFFICER POCT CREATININE FOR CONTRAST EVALUATION Routine Gen Lab 08/01/2017 9:27 PM CORPORATE ETHICS OFFICER LACTATE POC Routine Gen Lab 08/01/2017 9:23 PM CORPORATE ETHICS OFFICER MOLD BLOOD CULTURE RTNm 08/01/2017 9: 23 PM CORPORATE ETHICS OFFICER B CHECK SAMPLE STAT 08/01/2017 9:22 PM CORPORATE ETHICS OFFICER WOUND AEROBIC CULTURE AND GRAM STAIN RTNm 08/01/2017 9:22 PM CORPORATE ETHICS OFFICER HIV 1/2 ANTIBODY PLUS P24 ANTIGEN STAT 08/01/2017 9:13 PM CORPORATE ETHICS OFFICER HIV DIFFERENTATION ASSAY STAT 08/01/2017 9:13 PM CORPORATE ETHICS OFFICER BLOOD CULTURE RTNm 08/01/2017 9:13 PM CORPORATE ETHICS OFFICER BLOOD CULTURE RTNm 08/01/2017 9:13 PM CORPORATE ETHICS OFFICER ALT STAT 08/01/2017 9:13 PM CORPORATE ETHICS OFFICER AST STAT 08/01/2017 9:13 PM CORPORATE ETHICS OFFICER PROTEIN, TOTAL STAT 08/01/2017 9:13 PM CORPORATE ETHICS OFFICER ALKALINE PHOSPHATASE STAT 08/01/2017 9:13 PM CORPORATE ETHICS OFFICER HEMOGLOBIN A1C STAT 08/01/2017 9:13 PM CORPORATE ETHICS OFFICER ALBUMIN STAT 08/01/2017 9:13 PM CORPORATE ETHICS OFFICER LIPID PANEL STAT 08/01/2017 9:13 PM CORPORATE ETHICS OFFICER BASIC METABOLIC PANEL STAT 08/01/2017 9:13 PM CORPORATE ETHICS OFFICER APTT STAT 08/01/2017 8:54 PM CORPORATE ETHICS OFFICER PROTIME-INR STAT 08/01/2017 8:54 PM CORPORATE ETHICS OFFICER TYPE AND SCREEN STAT 08/01/2017 8:54 PM CORPORATE ETHICS OFFICER SURGICAL PATHOLOGY Routine 08/01/2017 1: 48 PM CORPORATE ETHICS OFFICER SURGICAL PATHOLOGY 08/01/2017 12:00 AM CORPORATE ETHICS OFFICER documented in this encounter Results * N. gonorrhoeae/C. trachomatis amplification test (08/03/2017 5:58 AM CORPORATE ETHICS OFFICER) Report Final Report: Negative for: ??Chlamydia trachomatis rRNA Negative for: ??Neisseria gonorrhoeae rRNA JOE HAYWARD Urine 08/03/2017 5:58 AM CORPORATE ETHICS OFFICER 08/03/2017 7:30 AM CORPORATE ETHICS OFFICER Narrative JOE IBRAHIM - 08/03/2017 7:30 AM CORPORATE ETHICS OFFICER Testing performed by the [employer]end[employer] SpotMe APTIMA Combo 2 Assay. This nucleic acid amplification test (NAAT) detects ribosomal RNA (rRNA) from Chlamydia trachomatis and Neisseria gonorrhoeae using target capture,and Animal Geneticist-Mediated Amplification (TMA). This test is approved by the [place] Food and Drug Administration for endocervical, vaginal, and male urethral swab specimens, in addition to male and female urine specimens. The performance characteristics for these specimen types have been verified by the [facility].The performance characteristics of this assay for pharyngeal and rectal specimens collected from cervical swab collection devices have been validated and verified by the [facility]. Verification studies support a lack of cross reactivity with other Neisseria species considered normal oropharyngeal bacterial corinna. Rectal swab specimens containing excess stool may be inhibitory and result in false negatives for Chlamydia trachomatis or Neisseria gonorrhoeae. The performance characteristics of this test have not been evaluated in women or individuals less than 16 years of age. Michel Beard MD LAB MICROBIOLOGY - GENER AL ORDERABLES Final Result [facility] Department [place] [address] * DISCHARGE LABORATORY CUMULATIVE REPORT (08/03/2017 12:00 AM CORPORATE ETHICS OFFICER) Narrative 08/03/2017 12:00 AM CORPORATE ETHICS OFFICER Ordered by an unspecified provider. [facility] Provider LAB BLOOD ORDERABLES Antonina l Result * HIV genotype (08/02/2017 6:58 PM CORPORATE ETHICS OFFICER) HIV-1, genotype See separate report scanned into the Clinical Desktop Scanned Laboratory Reports Tab. [facility] Comment:Testing performed by : [facility] [address], [place] [address]. Blood specimen (specimen) 08/02/2017 6:58 PM CORPORATE ETHICS OFFICER 08/02/2017 7:11 PM CORPORATE ETHICS OFFICER Narrative [facility] - 08/08/2017 4:37 PM CORPORATE ETHICS OFFICER us Brandy Yates MD LAB BLOOD ORDERABLES Final Res ult Performing Organization Address [facility] Co de Phone Number [facility] [address] * Toxoplasma gondii antibody, IgG (08/02/2017 6:58 PM CORPORATE ETHICS OFFICER) Pathologist [facility] Toxoplasma IgG Negative Negative [facility] Comment: Interpretive Data Negative - ??No detectable antibody. Equivocal - Presence of detectable antibody cannot be determined. Positive - ??Detectable level of antibody present. Current interpretive data was last revised on 2001. Blood specimen (specimen) 08/02/2017 6:58 PM CORPORATE ETHICS OFFICER 08/02/2017 7:40 PM CORPORATE ETHICS OFFICER Narrative [facility] - 08/07/2017 10:34 AM CORPORATE ETHICS OFFICER Michel Beard MD LAB MICROBIOLOGY - GENER AL ORDERABLES Final Result Performing Organization Address [facility] de Phone Number [facility] [place] [address] * HIV-1 RNA, quantitative, PCR (08/02/2017 6:58 PM CORPORATE ETHICS OFFICER) [facility] HIV-1 RNA Detected [facility] Comment: Interpretive Data: The quantifiable range of this assay is 20 copies/mL to 10,000,000 copies/mL (1.30 log copies/mL to 7.00 log copies/mL). ??Testing was performed by the [employer] AmpliPrep/NEERU TaqMan HIV-1 Test version 2.0 ([employer] Testing performed at [facility] Current Interpretive Data was last revised on 2015. HIV-1 RNA, copies/mL 74,474 copies/mL [facility] HIV-1 RNA, log 4.87 log cps/mL [facility] Blood specimen (specimen) 08/02/2017 6:58 PM CORPORATE ETHICS OFFICER 08/02/2017 9:32 PM CORPORATE ETHICS OFFICER Narrative [facility] - 08/03/2017 4:42 PM CORPORATE ETHICS OFFICER Result [facility] Michel Beard MD LAB MICROBIOLOGY - GENER AL ORDERABLES Final Result Performing Organization Address [facility] Co de Phone Number [facility] [place] [address] * Hepatitis B surface antigen (08/02/2017 6:58 PM CORPORATE ETHICS OFFICER) Pathologist [facility] HepBsAg Nonreactive Nonreactive [facility] Blood specimen (specimen) 08/02/2017 6:58 PM CORPORATE ETHICS OFFICER 08/02/2017 7:41 PM CORPORATE ETHICS OFFICER Narrative [facility] - 08/03/2017 10:48 AM CORPORATE ETHICS OFFICER Result [facility] Brandy Yates MD LAB MICROBIOLOGY - GENERAL ORD ERABLES Edited Result - Final Performing Organization Address [facility] de Phone Number [facility] [place] [address] * Hepatitis C antibody (08/02/2017 6:58 PM CORPORATE ETHICS OFFICER) Pathologist [facility] Hep C Ab Nonreactive Nonreactive [facility] Comment: Interpretive Data Positive and greyzone results should be confirmed by a molecular method. If positive or greyzone, a second separately collected sample should be submitted for Hepatitis C Virus RNA. Detection and Quantitation by Real-Time Reverse Animal Geneticist-PCR.Current Interpretive data was last revised on 2017. Blood specimen (specimen) 08/02/2017 6:58 PM CORPORATE ETHICS OFFICER 08/02/2017 7:41 PM CORPORATE ETHICS OFFICER Narrative [facility] - 08/03/2017 10:48 AM CORPORATE ETHICS OFFICER Brandy Yates MD LAB MICROBIOLOGY - GENERAL ORD ERABLES Edited Result - Final Performing Organization Address [facility]/ZIP Co de Phone Number [facility] [place] [address] * Hepatitis B core antibody, total (08/02/2017 6:58 PM CORPORATE ETHICS OFFICER) Pathologist [facility] Hep B core IgG/IgM Nonreactive Nonreactive [facility] Blood specimen (specimen) 08/02/2017 6:58 PM CORPORATE ETHICS OFFICER 08/02/2017 7:41 PM CORPORATE ETHICS OFFICER Narrative [facility] - 08/03/2017 10:48 AM CORPORATE ETHICS OFFICER Brandy Yates MD LAB MICROBIOLOGY - GENERAL ORD ERABLES Edited Result - Final Performing Organization Address [facility] [place] [address] * Hepatitis B surface antibody (08/02/2017 6:58 PM CORPORATE ETHICS OFFICER) Pathologist [facility] HBsAb (immune status) Nonreactive [facility] Comment: Interpretive Data A Negative Result indicates HBsAb of less than 10mIU/mL; a Positive Result indicates HBsAb of greater than or equal to 10mIU/mL. If qualitative result is Positive, HBsAb Quantitation will be reported. Assay performance characteristics have not been established as an aid in determining susceptibility to HBV infection prior to or following vaccination in infants, or children. For monitoring serum HBsAb levels during hepatitis B immunoglobulin (HBIG) therapy in transplant recipients, please refer to institutional HBIG protocol for desirable HBsAb levels. Current interpretive data was last revised on 2016. Blood specimen (specimen) 08/02/2017 6:58 PM CORPORATE ETHICS OFFICER 08/02/2017 7:48 PM CORPORATE ETHICS OFFICER Narrative [facility] - 08/03/2017 9:06 AM CORPORATE ETHICS OFFICER Brandy Yates MD LAB MICROBIOLOGY - GENERAL ORD ERABLES Edited Result - Final Performing Organization Address City/[facility]/[place] [address] * (ABNORMAL) T-helper cells (CD4) count (08/02/2017 6:58 PM CORPORATE ETHICS OFFICER) [facility] CD4 pct 7(L) 31 - 64 % [facility] CD4 Absolute 64(L) 365 - 1,294 cells/mcL [facility] Blood specimen (specimen) 08/02/2017 6:58 PM CORPORATE ETHICS OFFICER 08/02/2017 8:06 PM CORPORATE ETHICS OFFICER Narrative [facility] - 08/03/2017 9:02 AM CORPORATE ETHICS OFFICER us Brandy Yates MD LAB BLOOD ORDERABLES Final Res ult [facility] Department [place] [address] * (ABNORMAL) Basic metabolic panel, serum (08/02/2017 6:58 PM CORPORATE ETHICS OFFICER) [facility] Sodium 137 135 - 145 mmol/L [facility] Potassium, sr 4.2 3.6 - 5.2 mmol/L [facility] Chloride 99 97 - 110 mmol/L [facility] CO2 See Comment 22 - 32 mmol/L [facility] Comment:Credited: Specimen t oo old BUN 9 8 - 25 mg/dL [facility] Glucose 69(L) 70 - 199 mg/dL [facility] [...] classification and Diagnosis of Diabetes Diabetes Care 2017;40 (Suppl. 1):S11. Current interpretive data was last revised 2017. Creatinine 0.80 0.80 - 1.30 mg/dL [facility] Calcium 9.2 8.5 - 10.3 mg/dL [facility] Anion gap See Comment 2 - 15 mmol/L [facility] Comment:Credited: Specimen t oo old Blood specimen (specimen) 08/02/2017 6:58 PM CORPORATE ETHICS OFFICER 08/02/2017 7:49 PM CORPORATE ETHICS OFFICER Narrative [facility] - 08/03/2017 3:34 AM CORPORATE ETHICS OFFICER Brandy Yates MD LAB BLOOD ORDERABLES Final Res ult Performing Organization Address City/[facility]/ZIP Co de Phone Number [facility] Department [place] [address] * Differential, auto (08/02/2017 6:58 PM CORPORATE ETHICS OFFICER) Pathologist [facility] Neutrophil pct 52.5 % [facility] Imm gran pct 0.8 % [facility] Lymphocyte pct 33.1 % [facility] Monocyte pct 13.3 % [facility] Eosinophil pct 0.0 % [facility] Basophil pct 0.3 % [facility] Neutrophil abs 1.86 1.70 - 6.50 K/cumm [facility] Imm gran abs 0.03 0.00 - 0.10 K/cumm [facility] Lymphocyte abs 1.17 0.80 - 3.30 K/cumm [facility] Monocyte abs 0.47 0.20 - 0.80 K/cumm [facility] Eosinophil abs 0.00 0.00 - 0.50 K/cumm [facility] Basophil abs 0.01 0.00 - 0.10 K/cumm [facility] Blood specimen (specimen) 08/02/2017 6:58 PM CORPORATE ETHICS OFFICER 08/02/2017 7:14 PM CORPORATE ETHICS OFFICER Narrative [facility] - 08/02/2017 7:47 PM CORPORATE ETHICS OFFICER us Brandy Yates MD LAB BLOOD ORDERABLES Final Res ult [facility] Department [place] [address] * (ABNORMAL) CBC with auto differential (08/02/2017 6:58 PM CORPORATE ETHICS OFFICER) Pathologist [facility] WBC 3.54(L) 3.80 - 9.90 K/cumm [facility] RBC 4.99 4.30 - 5.80 M/cumm [facility] Hgb 13.2 13.0 - 17.5 g/dL [facility] Hct 39.7 38.9 - 50.3 % [facility] MCV 79.6(L) 81.3 - 96.4 fL [facility] MCH 26.5(L) 27.1 - 33.3 pg [facility] MCHC 33.2 32.3 - 35.7 g/dL [facility] RDW CV 12.8 11.1 - 14.9 % [facility] RDW SD 36.4 35.7 - 48.1 fL [facility] Plt 318 150 - 400 K/cumm [facility] MPV 9.8 9.1 - 12.3 fL [facility] NRBC 0.0 0.0 - 0.2 % [facility] NRBC abs 0.00 0.00 - 0.01 K/cumm [facility] Blood specimen (specimen) 08/02/2017 6:58 PM CORPORATE ETHICS OFFICER 08/02/2017 7:14 PM CORPORATE ETHICS OFFICER Narrative [facility] - 08/02/2017 7:47 PM CORPORATE ETHICS OFFICER us Brandy Yates MD LAB BLOOD ORDERABLES Final Res ult [facility] Department [place] [address] * (ABNORMAL) FTA antibodies, IgG and IgM (08/02/2017 6:37 PM CORPORATE ETHICS OFFICER) [facility] Fluorescent Treponemal Antibody, Absorbed, Serum Reactive( A) Nonreactive [facility] Blood specimen (specimen) 08/02/2017 6:37 PM CORPORATE ETHICS OFFICER 08/02/2017 7:51 PM CORPORATE ETHICS OFFICER Narrative [facility] - 08/03/2017 1:23 PM CORPORATE ETHICS OFFICER us Michel Beard MD LAB BLOOD ORDERABLES Fin al Result Performing Organization Address [facility] de Phone Number [facility] [place] [address] * (ABNORMAL) RPR, quantitative (08/02/2017 6:37 PM CORPORATE ETHICS OFFICER) RPR qn 1:1024(A) Nonreactive [facility] Blood specimen (specimen) 08/02/2017 6:37 PM CORPORATE ETHICS OFFICER 08/02/2017 7:51 PM CORPORATE ETHICS OFFICER Narrative [facility] - 08/02/2017 10:41 PM CORPORATE ETHICS OFFICER Michel Beard MD LAB MICROBIOLOGY - GENER AL ORDERABLES Final Result Performing Organization Address [facility] [place] [address] * (ABNORMAL) RPR, serum (08/02/2017 6:37 PM CORPORATE ETHICS OFFICER) RPR Reactive(A ) Nonreactive [facility] Blood specimen (specimen) 08/02/2017 6:37 PM CORPORATE ETHICS OFFICER 08/02/2017 7:51 PM CORPORATE ETHICS OFFICER Narrative [facility] - 08/02/2017 10:29 PM CORPORATE ETHICS OFFICER Michel Beard MD LAB MICROBIOLOGY - GENER AL ORDERABLES Final Result Performing Organization Address [facility] de Phone Number [facility] [place] [address] * XR Chest Pa Lateral 2 Views (08/02/2017 5:27 AM CORPORATE ETHICS OFFICER) Anatomical Region Laterality Modality Body, Chest N/A Radiographic Shakila ging 08/02/2017 5:27 AM CORPORATE ETHICS OFFICER Narrative 08/02/2017 2:39 PM CORPORATE ETHICS OFFICER YEIMY PINEDA M.D. VANESSA CHIRINOS M.D. FINAL REPORT The radiology attending physician has personally reviewed this study, and has reviewed and/or edited this written report and agrees with it. ACC# ??Date Time ??Exam [id number] Aug 01, 2017 23:27:00 [id number] Chest [address] PA/Lat EXAMINATION: ??2 view chest radiograph HISTORY: Cough IMPRESSION: ??2 views of the chest are submitted without priors immediately available for comparison. ??Lungs are clear without consolidation or edema. ??No pleural effusion or pneumothorax. ??Heart size normal. Electronically signed by: Yeimy Pineda M.D. Requested By: PADMINI LAMBERT.N.P. Dictated By: ?? VANESSA CHIRINOS M.D. ??on Aug 01 2017 11:48P This document has been electronically signed by: YEIMY PINEDA M.D. on Aug 02 2017 ??8:37A [id number] BARRY M.D. FINAL REPORT The radiology attending physician has personally reviewed this study, and has reviewed and/or edited this written report and agrees with it. Attending: ??TERRENCE, ??JEFRY Requesting: ??FAUSTO, ??PADMINI Requesting Fax: ?? Attending Fax: ?? Attending ID: ??[id number] Requesting ID: ??[id number] Report To 1 ID: ??[id number] ? Report To 1 Name: ??, ?? Report To 1 FAX: ?? NextGen Order #: ?? Procedure Note Miscellaneous, Not In File - 08/02/2017 Lisa MORENO M.D. FINAL REPORT The radiology attending physician has personally reviewed this study, and has reviewed and/or edited this written report and agrees with it. ACC# Date Time Exam [id number] Aug 01, 2017 23:27:00 [id number] Chest [address] PA/Lat EXAMINATION: 2 view chest radiograph HISTORY: Cough IMPRESSION: 2 views of the chest are submitted without priors immediately available for comparison. Lungs are clear without consolidation or edema. No pleural effusion or pneumothorax. Heart size normal. Electronically signed by: Yeimy Pineda M.D. Requested By: PADMINI LAMBERT.N.P. Dictated By: VANESSA CHIRINOS M.D. on Aug 01 2017 11:48P This document has been electronically signed by: YEIMY PINEDA M.D. on Aug 02 2017 8:37A [id number] BARRY M.D. FINAL REPORT The radiology attending physician has personally reviewed this study, and has reviewed and/or edited this written report and agrees with it. Attending: JEFRY OCAMPO Requesting: PADMINI LAMBERT Requesting Fax: Attending Fax: Attending ID: [id number] Requesting ID: [id number] Report To 1 ID: [id number] Report To 1 Name: , Report To 1 FAX: NextGen Order #: Padmini Lambert PETROLEUM SAMPLER IMG XR PROCEDURES Final Re sult * CT Neck Soft Tissue W Contrast (08/02/2017 4:02 AM CORPORATE ETHICS OFFICER) Anatomical Region Laterality Modality Head and Neck N/A Computed Tomogra phy 08/02/2017 4:02 AM CORPORATE ETHICS OFFICER Narrative 08/02/2017 4:01 PM CORPORATE ETHICS OFFICER Lisa ROBIN M.D. FINAL REPORT The radiology attending physician has personally reviewed this study, and has reviewed and/or edited this written report and agrees with it. ACC# ??Date Time ??Exam [id number] Aug 01, 2017 22:02:[id number] Neck SoftTissue w cont EXAMINATION: ??CT of the neck with contrast HISTORY: 5 [...] interest including the tonsils limiting the evaluation. ??Included images of the brain are normal. ??The common carotid artery arteries demonstrate normal course and caliber. ??The orbits are normal. ??There is no large peritonsillar abscess, however motion artifact greatly limits the evaluation of this area. ??There is no definite enlarged lymph nodes, however motion again limits the evaluation. ??There is streak artifact in level 2A lymph nodes on the right making it difficult to evaluate this area, however the level 2 lymph nodes are prominent, likely reactive.. ??The adenoids are enlarged. ??There is no retropharyngeal abscess. The visualized airway is widely patent. ??The craniocervical junction is normal. ??The vertebral bodies are normal in height. ??Included images of the lungs are clear. IMPRESSION: ??1. ??The evaluation of the neck for soft tissue collection is severely limited due to motion. ??There is no definite large abscess visualized. 2. ??The visualized airway is widely patent Electronically signed by: Belia Mayorga M.D. Requested By: LUCY BUCKLEY MD, MPH Dictated By: ?? FRANCIA BLANKENSHIP M.D. ??on Aug 02 2017 ??8:10A This document has been electronically signed by: BELIA MAYORGA M.D. on Aug 02 2017 ??9:59A [id number] ROBIN M.D. FINAL REPORT The radiology attending physician has personally reviewed this study, and has reviewed and/or edited this written report and agrees with it. Attending: ??TERRENCE, ??JEFRY Requesting: ??INA, ??LUCY Requesting Fax: ?? Attending Fax: ?? Attending ID: ??[id number] Requesting ID: ??[id number] Report To 1 ID: ??[id number] ? Report To 1 Name: ??, ?? Report To 1 FAX: ?? NextGen Order #: ?? Procedure Note Miscellaneous, Not In File - 08/02/2017 Lisa ROBIN M.D. FINAL REPORT The radiology attending physician has personally reviewed this study, and has reviewed and/or edited this written report and agrees with it. ACC# Date Time Exam [id number] Aug 01, 2017 22:02:[id number] Neck SoftTissue w cont EXAMINATION: CT [...] MAYORGA M.D. on Aug 02 2017 9:59A [id number] ROBIN M.D. FINAL REPORT The radiology attending physician has personally reviewed this study, and has reviewed and/or edited this written report and agrees with it. Attending: JEFRY OCAMPO Requesting: LUCY BUCKLEY Requesting Fax: Attending Fax: Attending ID: [id number] Requesting ID: [id number] Report To 1 ID: [id number] Report To 1 Name: , Report To 1 FAX: NextGen Order #: us Lucy Venegas MD IM CT PROCEDURES Final Resu lt * Leukemia/lymphoma studies (08/02/2017 1:12 AM CORPORATE ETHICS OFFICER) CD 3 Test Completed [facility] CD 5 Test Completed [facility] CD 10 Test Completed [facility] Metamyelocyte , Bone Marrow Test Completed [facility] CD 14 Test Completed [facility] CD 19 Test Completed [facility] CD 20 Test Completed [facility] CD 23 Test Completed [facility] CD 33 Test Completed [facility] CD 34 Test Completed [facility] CD 45 Test Completed [facility] CD 64 Test Completed [facility] CD 117 Test Completed [facility] CD 123 Test Completed [facility] Hernandez Stain Test Completed [facility] Leukemia/Lymp jarett Result See separate Surgical Pathology report. [facility] Blood specimen (specimen) 08/02/2017 1:12 AM CORPORATE ETHICS OFFICER 08/02/2017 1:28 AM CORPORATE ETHICS OFFICER Narrative [facility] - 08/03/2017 8:24 AM CORPORATE ETHICS OFFICER us Brittany Whitley PETROLEUM SAMPLER LAB BLOOD ORDERABL ES Final Result Performing Organization Address City/[facility] Co de Phone Number [facility] Department [place] [address] * Mycobacteriology (AFB) culture and acid-fast stain (08/02/2017 1:12 AM CORPORATE ETHICS OFFICER) Pathologist [facility] Direct Specimen Exam Stain: No Acid-fast bacilli seen [facility] Report Final Report: No growth of acid-fast bacilli [facility] Biopsy (Tonsil) 08/02/2017 1 :12 AM CORPORATE ETHICS OFFICER 08/02/2017 2:45 AM CORPORATE ETHICS OFFICER Narrative [facility] - 08/03/2017 8:57 AM CORPORATE ETHICS OFFICER us Brittany Whitley NP LAB MICROBIOLOGY - GENERAL ORDERABLES Final Result Performing Organization Address City/[facility]/ZIP Co de Phone Number [facility] Department [place] [address] * Mycology (fungal) culture and stain (08/02/2017 1:12 AM CORPORATE ETHICS OFFICER) Direct Specimen Exam Stain: No Fungal elements seen. [facility] Report Final Report: No growth of fungus [facility] Biopsy (Tonsil) 08/02/2017 1 :12 AM CORPORATE ETHICS OFFICER 08/02/2017 2:44 AM CORPORATE ETHICS OFFICER Narrative [facility] - 08/03/2017 10:15 AM CORPORATE ETHICS OFFICER us Brittany Whitley PETROLEUM SAMPLER LAB MICROBIOLOGY - GENERAL ORDERABLES Final Result Performing Organization Address [facility] Co de Phone Number [facility] Department [place] [address] * (ABNORMAL) Aerobic and anaerobic culture and gram stain (08/02/2017 1:12 AM CORPORATE ETHICS OFFICER) Direct Specimen Exam Stain: No polymorphonuclear leukocytes seen. Moderate Gram Negative Bacilli [facility] Report Final Report: Few Mixed upper respiratory tract microorganisms. (.) [facility] Organism MIXED UPPER RESPIRATORY TRACT MICROORGANISMS. [facility] Biopsy (Tonsil) 08/02/2017 1 :12 AM CORPORATE ETHICS OFFICER 08/02/2017 2:44 AM CORPORATE ETHICS OFFICER Narrative [facility] - 08/03/2017 11:03 AM CORPORATE ETHICS OFFICER Specimens submitted from normally sterile body sites will have all bacterial morphotypes identified. Specimens that contain grossly mixed corinna and/or are from body sites that are not normally sterile will be examined for Staphylococcus aureus, Pseudomonas aeruginosa, beta-hemolytic strep, vancomycin-resistant Enterococcus, Bacteroides fragilis, Clostridium perfringens and fungus. If any of these are isolated, the organism will be reported. Current interpretive data was last revised on 2012. us Brittany Whitley PETROLEUM SAMPLER LAB MICROBIOLOGY - GENERAL ORDERABLES Final Result Performing Organization Address [facility] Co de Phone Number [facility] Department [place] [address] * Surgical pathology (08/02/2017 12:57 AM CORPORATE ETHICS OFFICER) 08/02/2017 12:5 7 AM CORPORATE ETHICS OFFICER 08/02/2017 9:00 AM CORPORATE ETHICS OFFICER Narrative 08/07/2017 12:16 PM CORPORATE ETHICS OFFICER [facility] [place] [address] SURGICAL PATHOLOGY REPORT FINAL Patient Name: PATRICIA MANDEL ? Address: [address] ??Service: ??Emergency ??[place], [place] ??[address] ??Location: ??[facility] 0145 Taken: 08/02/2017 Gender: M ?? Received: 08/02/2017 : 1995 (Age: 21) Hospital #: ??[id number] Accessioned: 08/02/2017 ?Patient Type: ??[facility] Inpatient Reported: 08/07/2017 ? Physician(s): EUNICE Chatterjee ? Diagnosis: Peripheral blood, venipuncture, morphologic review and flow cytometry ? - Mild leukopenia ? - No clonal B-cell population or circulating blasts mw/08/03/2017 17:10 By this signature, I attest that the above diagnosis is based upon my personal examination of the slides(and/or other material indicated in the diagnosis). ?? Ramirez Salamanca M.D. ??Report Electronically Reviewed and Signed Out By ??Ramirze Salamanca M.D. 08/07/2017 12:16:56 Microscopic Description and Comment: CBC (collected on August 02, 2017): WBC 3.5, RBC 4.9, hemoglobin 13.2, hematocrit 39.7, MCV 79.6, RDW 12.8, platelets 318. Review of the peripheral blood smear shows microcytic red blood cells with mild anisopoikilocytosis. ??White cells show leukopenia with progressive myeloid maturation and no circulating blasts. ??Platelets are clumped with satellite formation. 100-cell manual differential count shows neutrophils 66, lymphocytes 24, monocytes 10, and eosinophils 0. Flow cytometric analysis shows no significant events in the blast gate (<1%). 6% of events show characteristics of mature monocytes. 8% of events show scatter characteristics of lymphocytes with 10% CD19/CD20 positive B-cells that are polyclonal ?Ezra Velázquez MD, PhD ?History: The patient is a 21 year old with a tonsillar mass. Specimen(s) Received: A: Peripheral blood for flow Gross Description: { Not Entered } ?AILEEN Steve ? By this signature, I attest that the above diagnosis is based upon my personal examination of the slides(and/or other material). ?? Surgical Pathology report is available electronically in Clinical Desktop. The performance characteristics of some immunohistochemical stains, fluorescence in-situ hybridization tests and immunophenotyping by flow cytometry cited in this report (if any) were determined by the Surgical Pathology Department at [facility] as part of an ongoing manager quality systems program and in compliance with federally mandated [...] characteristics determined by the Surgical Pathology Department of [facility]. ??It has not been cleared or approved by the U. S. Food and Drug Administration. Brittany Whitley NP LAB PATHOLOGY ORDDenise MELENDREZ Final Result * SURGICAL PATHOLOGY (08/02/2017 12:00 AM CORPORATE ETHICS OFFICER) Narrative 08/02/2017 12:00 AM CORPORATE ETHICS OFFICER Ordered by an unspecified provider. Historical Provider MD LAB PATHOLOGY ORDERABLES Final Result * REFERENCE LABORATORY MISCELLANEOUS TESTING (08/02/2017 12:00 AM CORPORATE ETHICS OFFICER) Narrative 08/02/2017 12:00 AM CORPORATE ETHICS OFFICER Ordered by an unspecified provider. Historical Provider MD LAB BLOOD ORDERABLES Antonina l Result * Histoplasma antigen (08/01/2017 11:44 PM CORPORATE ETHICS OFFICER) Report Direct Antigen Testing - Final: Negative for: Histoplasma antigen Histoplasma Antigen Result: ??None detected. * ??* ??* ??* ??* Result Interpretation: Reference interval: None Detected Results reported as ng/mL in 0.4 - 19 ng/mL Results above the limit of detection but below 0.4 ng/mL are reported as 'Positive, Below the Limit of Quantification' Results above 19 ng/mL are reported as 'Positive, Above the Limit of Quantification' * ??* ??* ??* ??* ??* ??* ??* ??* ??* ??* ??* ??* ??* ??* ??* ??* ??* ??* ??* This test was developed and its performance characteristics determined by [facility]. ??It has not been cleared or approved by the FDA; however, FDA clearance or approval is not currently required for clinical use. The results are not intended to be used as the sole means for clinical diagnosis or patient management decisions. JOE IBRAHIM Urine 08/01/2017 11:4 4 PM CORPORATE ETHICS OFFICER 08/02/2017 12:01 AM CORPORATE ETHICS OFFICER Narrative JOE [facility] - 08/02/2017 12:01 AM CORPORATE ETHICS OFFICER Testing Performed by: [facility], [place] [address]. Padmini Lambert PETROLEUM SAMPLER LAB MICROBIOLOGY - GENERAL ORDERABLES Final Result Performing Organization Address [facility] Co de Phone Number JOE [facility] [place] [address] * Urine culture (08/01/2017 11:44 PM CORPORATE ETHICS OFFICER) Report Final Report: Insignificant growth based on current clinical standards. [facility] Urine 08/01/2017 11:4 4 PM CORPORATE ETHICS OFFICER 08/02/2017 12:01 AM CORPORATE ETHICS OFFICER Narrative [facility] - 08/03/2017 7:55 AM CORPORATE ETHICS OFFICER Padmini Boland [facility] LAB MICROBIOLOGY - GENERAL ORDERABLES Final Result Performing Organization Address [facility] de Phone Number [facility] [place] [address] * (ABNORMAL) Urinalysis reflex to microscopic (08/01/2017 11:44 PM CORPORATE ETHICS OFFICER) Color, ur Yellow Yellow [facility] Clarity, ur Clear Clear [facility] Specific gravity, ur >1.042(H) 1.003 - 1.030 [facility] pH, ur 7.0 5.0 - 8.0 [facility] Albumin, ur Negative Trace [facility] Glucose, ur ql Negative Negative [facility] Ketones, ur 1+(A) Negative [facility] Bilirubin, ur Negative Negative [facility] Blood, ur Negative Negative [facility] Urobilinogen, ur 4.0(A) <2.0 mg/dL [facility] Nitrites, ur Negative Negative [facility] Leukocyte esterase, ur Negative Negative [facility] Urine 08/01/2017 11:4 4 PM CORPORATE ETHICS OFFICER 08/02/2017 12:04 AM CORPORATE ETHICS OFFICER Narrative [facility] - 08/02/2017 12:14 AM CORPORATE ETHICS OFFICER us Padmini Lambert PETROLEUM SAMPLER LAB URINE ORDERABLES Final Result Performing Organization Address [facility] Co de Phone Number [facility] [place] [address] * Rapid HIV ED POC (08/01/2017 10:23 PM CORPORATE ETHICS OFFICER) Pathologist [facility] Rapid HIV 1/2 Emergency Dept POC Negative Negative [facility] Blood specimen (specimen) 08/01/2017 10:23 PM CORPORATE ETHICS OFFICER 08/02/2017 8:57 AM CORPORATE ETHICS OFFICER Narrative JOE [facility] - 08/02/2017 9:01 AM CORPORATE ETHICS OFFICER us Wesley Prater MD LAB BLOOD ORDERABLES Final Res ult Performing Organization Address [facility] Co de Phone Number [facility] [place] [address] * POCT creatinine (08/01/2017 9:27 PM CORPORATE ETHICS OFFICER) [facility] Creatinine POC 0.8 0.7 - 1.3 mg/dL [facility] Blood specimen (specimen) 08/01/2017 9:27 PM CORPORATE ETHICS OFFICER 08/01/2017 9:27 PM CORPORATE ETHICS OFFICER Narrative JOE [facility] - 08/01/2017 9:46 PM CORPORATE ETHICS OFFICER us Notinfile Unknown POINT OF CARE TEST ORDERABLES Final Result Performing Organization Address [facility] Co de Phone Number [facility] Department [place] [address] * Filamentous fungus culture, blood (08/01/2017 9:23 PM CORPORATE ETHICS OFFICER) Pathologist [facility] Report Final Report: No growth of fungus [facility] Blood specimen (specimen) 08/01/2017 9:23 PM CORPORATE ETHICS OFFICER 08/01/2017 9:52 PM CORPORATE ETHICS OFFICER Narrative [facility]E [facility] - 08/02/2017 7:16 AM CORPORATE ETHICS OFFICER us Padmini Lambert PETROLEUM SAMPLER LAB MICROBIOLOGY - GENERAL ORDERABLES Final Result Performing Organization Address City/[facility]/ZIP Co de Phone Number [facility] [place] [address] * Lactate POC (08/01/2017 9:23 PM CORPORATE ETHICS OFFICER) Lactate POC i-STAT 1.9 0.7 - 2.2 mmol/L [facility] Blood specimen (specimen) 08/01/2017 9:23 PM CORPORATE ETHICS OFFICER 08/01/2017 9:23 PM CORPORATE ETHICS OFFICER Narrative [facility] - 08/01/2017 9:46 PM CORPORATE ETHICS OFFICER us Notinfile Unknown LAB BLOOD ORDERABLES Final Res ult Performing Organization Address [facility] Co de Phone Number [facility] Department [place] [address] * (ABNORMAL) Wound aerobic culture and gram stain (08/01/2017 9:22 PM CORPORATE ETHICS OFFICER) Pathologist [facility] Direct Specimen Exam Stain: Rare polymorphonuclear leukocytes seen. Moderate Gram Negative Bacilli Few Gram Positive Cocci Slide reviewed. ??Review is consistent with original read. This culture has been processed for aerobic organisms only. Gram Negative Bacilli noted on the direct smear, but not recovered in culture, may reflect anaerobic organisms. [facility] Report Final Report: Abundant Mixed upper respiratory tract microorganisms. Includes the following: Rare Staphylococcus aureus Methicillin susceptible (MSSA) by penicillin binding protein 2a (PBP2a) testing. This isolate is presumed to be resistant to clindamycin based on detection of inducible clindamycin resistance. Clindamycin may still be effective in some patients. (.) [facility] Organism MIXED UPPER RESPIRATORY TRACT MICROORGANISMS. [facility] Organism STAPHYLOCOCCUS AUREUS [facility] Wound (Tonsil) 08/01/2017 9: 22 PM CORPORATE ETHICS OFFICER 08/01/2017 10:04 PM CORPORATE ETHICS OFFICER Narrative [facility]E [facility] - 08/02/2017 8:00 AM CORPORATE ETHICS OFFICER Specimens submitted from normally sterile body sites will have all bacterial morphotypes identified. ??Specimens that contain grossly mixed corinna and/or are from body sites that are not normally sterile will be examined for Staphylococcus aureus, Pseudomonas aeruginosa, beta-hemolytic strep, vancomycin-resistant Enterococcus and fungus. ??If any of these are isolated, the organism will be reported. Current interpretive data was last revised on 2013. Organism Antibiotic Method Susceptibility Staphylococcus aureus Vancomycin INTERPRETATION Susceptible Staphylococcus aureus Trimethoprim with Sulfamethoxazole INTERPRETATION Susceptible Staphylococcus aureus Linezolid INTERPRETATION Susceptible Staphylococcus aureus Doxycycline INTERPRETATION Susceptible Staphylococcus aureus Clindamycin INTERPRETATION Resistant Staphylococcus aureus Erythromycin INTERPRETATION Resistant Staphylococcus aureus Oxacillin INTERPRETATION Susceptible Staphylococcus aureus Cefazolin INTERPRETATION Susceptible Staphylococcus aureus Ceftriaxone INTERPRETATION Susceptible us Padmini Lambert NP LAB MICROBIOLOGY - GENERAL ORDERABLES Final Result [facility] Department [place] [address] * B Check Sample (08/01/2017 9:22 PM CORPORATE ETHICS OFFICER) Pathologist [facility] ABO Rh A Positive [facility] HCLL OTHER 08/01/2017 9:22 PM CORPORATE ETHICS OFFICER 08/01/2017 9:46 PM CORPORATE ETHICS OFFICER Narrative [facility] - 08/01/2017 10:36 PM CORPORATE ETHICS OFFICER us Notinfile Unknown LAB BLOOD ORDERABLES Final Res ult Performing Organization Address [facility] Co de Phone Number [facility] Department [place] [address] * Hemoglobin A1c (08/01/2017 9:13 PM CORPORATE ETHICS OFFICER) Pathologist [facility] Hgb A1C 5.7 4.0 - 6.0 % [facility] Estimated Average Glucose 117 mg/dL [facility] Comment: The ADA recommends reporting an estimated Average Glucose (eAG) with all Hemoglobin A1c results using the equation derived from a study of 507 normal and diabetic adults. ??Minority populations were underrepresented and children were not included. ?? (Diabetes Care 31:0293-5842, 2008). ??The eAG is not equivalent to a fasting glucose. Blood specimen (specimen) 08/01/2017 9:13 PM CORPORATE ETHICS OFFICER 08/01/2017 9:25 PM CORPORATE ETHICS OFFICER Narrative [facility] - 08/03/2017 7:23 AM CORPORATE ETHICS OFFICER Padmini Krystian Lambert NP LAB BLOOD ORDERABLES Final Result [facility] Department [place] [address] * (ABNORMAL) Lipid panel (08/01/2017 9:13 PM CORPORATE ETHICS OFFICER) Cholesterol 128 30 - 200 mg/dL [facility] Comment: Interpretive Data Desirable: ?<200 mg/dL Borderline high: ??200-239 mg/dL High: ? > or = 240 mg/dL Literature Reference: National Cholesterol Education Program (NCEP) Expert Panel on Detection, Evaluation, and Treatment of High Blood Cholesterol in Adults (Adult Treatment Panel III). ??Circulation 2004; 110:227. Current interpretive data was last revised on 2015. Triglycerides 67 0 - 150 mg/dL [facility] Comment: Interpretive Data Desirable: ? < 150 mg/dL Borderline High: ? 150 - 199 mg/dL High: ?200 - 499 mg/dL Very High: ? > or = 499 mg/dL Literature Reference: See Cholesterol Current interpretive data was last revised on 2015. HDL 32(L) >=40 mg/dL [facility] Comment: Interpretive Data Less than 40 mg/dL - low; A major risk factor for heart disease. Greater than or equal to 60 mg/dL - High; ??considered protective of heart disease. Literature Reference: See Cholesterol Current interpretive data was last revised on 2015. LDL, calculated 83 10 - 129 mg/dL [facility] Comment: Interpretive Data Optimal: ? < 100 mg/dL Near Optimal: ?100 - 129 mg/dL Borderline High: ?? 130 - 159 mg/dL High: ?160 - 189 mg/dL Very high: ? > or = 190 mg/dL Literature Reference: See Cholesterol Current interpretive data was last revised on 2015. Non-HDL Cholesterol 96 mg/dL [facility] Comment: Interpretive Data When triglycerides are >200 mg/dL, non-HDL C is a secondary target of therapy, with a goal 30 mg/dL higher than the identified LDL-C goal. Reference: ??See Cholesterol Reference. Current interpretive data was last revised 2015. Blood specimen (specimen) 08/01/2017 9:13 PM CORPORATE ETHICS OFFICER 08/01/2017 9:25 PM CORPORATE ETHICS OFFICER Narrative [facility] - 08/02/2017 7:11 PM CORPORATE ETHICS OFFICER Padmini Lambert PETROLEUM SAMPLER LAB BLOOD ORDERABLES Final Result Performing Organization Address City/[facility] Co de Phone Number [facility] Department [place] [address] * (ABNORMAL) Protein, total (08/01/2017 9:13 PM CORPORATE ETHICS OFFICER) [facility] Protein, pl 10.3(H) 6.5 - 8.5 g/dL [facility] Blood specimen (specimen) 08/01/2017 9:13 PM CORPORATE ETHICS OFFICER 08/01/2017 9:25 PM CORPORATE ETHICS OFFICER Narrative [facility] - 08/02/2017 7:11 PM CORPORATE ETHICS OFFICER Padmini Lambert PETROLEUM SAMPLER LAB BLOOD ORDERABLES Final Result Performing Organization Address [facility] de Phone Number [facility] Department [place] [address] * AST (08/01/2017 9:13 PM CORPORATE ETHICS OFFICER) [facility] AST 27 10 - 50 Units/L [facility] Blood specimen (specimen) 08/01/2017 9:13 PM CORPORATE ETHICS OFFICER 08/01/2017 9:25 PM CORPORATE ETHICS OFFICER Narrative [facility] - 08/02/2017 7:11 PM CORPORATE ETHICS OFFICER us Padmini Free Lambert PETROLEUM SAMPLER LAB BLOOD ORDERABLES Final Result Performing Organization Address [facility]/ZIP Co de Phone Number [facility] [place] [address] * Alkaline phosphatase (08/01/2017 9:13 PM CORPORATE ETHICS OFFICER) Alk phos 69 40 - 130 Units/L [facility] Blood specimen (specimen) 08/01/2017 9:13 PM CORPORATE ETHICS OFFICER 08/01/2017 9:25 PM CORPORATE ETHICS OFFICER Narrative [facility] - 08/02/2017 7:11 PM CORPORATE ETHICS OFFICER Padmini Free Lambert PETROLEUM SAMPLER LAB BLOOD ORDERABLES Final Result Performing Organization Address [facility] Co de Phone Number [facility] Department [place] [address] * Albumin (08/01/2017 9:13 PM CORPORATE ETHICS OFFICER) Albumin 4.3 3.5 - 5.0 g/dL [facility] Blood specimen (specimen) 08/01/2017 9:13 PM CORPORATE ETHICS OFFICER 08/01/2017 9:25 PM CORPORATE ETHICS OFFICER Narrative [facility] - 08/02/2017 7:11 PM CORPORATE ETHICS OFFICER Padmini Free Lambert PETROLEUM SAMPLER LAB BLOOD ORDERABLES Final Result Performing Organization Address [facility] [place] [address] * ALT (08/01/2017 9:13 PM CORPORATE ETHICS OFFICER) ALT 17 7 - 55 Units/L [facility] Blood specimen (specimen) 08/01/2017 9:13 PM CORPORATE ETHICS OFFICER 08/01/2017 9:25 PM CORPORATE ETHICS OFFICER Narrative [facility] - 08/02/2017 7:11 PM CORPORATE ETHICS OFFICER Padmini Lambert PETROLEUM SAMPLER LAB BLOOD ORDERABLES Final Result Performing Organization Address [facility] de Phone Number [facility] [address] * (ABNORMAL) HIV differentiation assay (08/01/2017 9:13 PM CORPORATE ETHICS OFFICER) HIV 1/2 Ab diff HIV-1 Reactive(A) Nonreactive [facility] HIV 1/2 Ab diff interp See Comment [facility] Comment:Positive for HIV-1 a ntibodies. Laboratory evidence consistent with established HIV-1 infection is present. Blood specimen (specimen) 08/01/2017 9:13 PM CORPORATE ETHICS OFFICER 08/01/2017 9:25 PM CORPORATE ETHICS OFFICER Narrative [facility] - 08/02/2017 4:33 AM CORPORATE ETHICS OFFICER Padmini Lambert NP LAB MICROBIOLOGY - GENERAL ORDERABLES Final Result Performing Organization Address [facility] de Phone Number [facility] [address] * Blood culture (08/01/2017 9:13 PM CORPORATE ETHICS OFFICER) Pathologist [facility] Report Final Report: No growth [facility] Blood specimen (specimen) (Arm, left) 08/01/2017 9:13 PM CORPORATE ETHICS OFFICER 08/01/2017 10:25 PM CORPORATE ETHICS OFFICER Narrative [facility] - 08/02/2017 4:07 AM CORPORATE ETHICS OFFICER Blood cultures are incubated for five days on a continuously monitored blood culture system. ??The first report of a negative culture is issued within 24 hours of receipt of the specimen in the laboratory. ??Positive culture results are reported as soon as they are detected. ??For blood cultures with gram-positive cocci, a rapid molecular test for organism identification may be performed using the [employer] Nanosphere Gram Positive Blood Culture Assay. ??The Nanosphere assay detects microbial DNA in positive blood culture broth via hybridization of target DNA to capture oligonucleotides on a microarray. ??This assay has been cleared by the [facility] Food and Drug Administration and its performance characteristics have been verified by the [facility] Microbiology Laboratory. Current Interpretive Data was last revised on 2013. [facility] Krystian [facility] LAB MICROBIOLOGY - GENERAL ORDERABLES Final Result Performing Organization Address [facility] de Phone Number JOE [facility] Department [place] [address] * Blood culture (08/01/2017 9:13 PM CORPORATE ETHICS OFFICER) Report Final Report: No growth [facility] Blood specimen (specimen) (Antecubital) 08/01/2017 9:13 PM CORPORATE ETHICS OFFICER 08/01/2017 10:25 PM CORPORATE ETHICS OFFICER Narrative [facility] - 08/02/2017 4:07 AM CORPORATE ETHICS OFFICER Blood cultures are incubated for five days on a continuously monitored blood culture system. ??The first report of a negative culture is issued within 24 hours of receipt of the specimen in the laboratory. ??Positive culture results are reported as soon as they are detected. ??For blood cultures with gram-positive cocci, a rapid molecular test for organism identification may be performed using the [employer] Nanosphere Gram Positive Blood Culture Assay. ??The Nanosphere assay detects microbial DNA in positive blood culture broth via hybridization of target DNA to capture oligonucleotides on a microarray. ??This assay has been cleared by the [place] Food and Drug Administration and its performance characteristics have been verified by the [facility]biology Laboratory. Current Interpretive Data was last revised on 2013. Padmini Boland [facility] LAB MICROBIOLOGY - GENERAL ORDERABLES Final Result Performing Organization Address [facility] de Phone Number [facility] Department [place] [address] * (ABNORMAL) HIV-1 and HIV-2 antibody with P24 antigen immunoassay (08/01/2017 9:13 PM CORPORATE ETHICS OFFICER) [facility] HIV 1/2 ab + p24 ag Reactive (A) Nonreactive [facility] Comment: Reactive results require confirmatory testing by the HIV-1/2 Antibody Differentiation Assay. ??If non-confirmed by the HIV-1/2 Antibody Differentiation Assay, viral load should be performed on a second patient sample to differentiate early infection from false positive. Telephone report made to: brittany cruz RN on 08/01/2017 23:00:14 CORPORATE ETHICS OFFICER by LR . Blood specimen (specimen) 08/01/2017 9:13 PM CORPORATE ETHICS OFFICER 08/01/2017 9:25 PM CORPORATE ETHICS OFFICER Narrative [facility] - 08/01/2017 11:00 PM CORPORATE ETHICS OFFICER Padmini Lambert NP LAB MICROBIOLOGY - GENERAL ORDERABLES Final Result [facility] Department [place] [address] * (ABNORMAL) Basic metabolic panel (08/01/2017 9:13 PM CORPORATE ETHICS OFFICER) [facility] Sodium 139 135 - 145 mmol/L [facility] Potassium, pl 3.8 3.3 - 4.9 mmol/L [facility] Chloride 101 97 - 110 mmol/L [facility] CO2 22 22 - 32 mmol/L [facility] BUN 12 8 - 25 mg/dL [facility] Glucose 88 70 - 199 mg/dL [facility] [...] classification and Diagnosis of Diabetes Diabetes Care 2017;40 (Suppl. 1):S11. Current interpretive data was last revised 2017. Creatinine 0.85 0.80 - 1.30 mg/dL [facility] Calcium 9.7 8.5 - 10.3 mg/dL [facility] Anion gap 16(H) 2 - 15 mmol/L [facility] Blood specimen (specimen) 08/01/2017 9:13 PM CORPORATE ETHICS OFFICER 08/01/2017 9:25 PM CORPORATE ETHICS OFFICER Narrative [facility] - 08/01/2017 9:50 PM CORPORATE ETHICS OFFICER us Padmini Free Lambert PETROLEUM SAMPLER LAB BLOOD ORDERABLES Final Result Performing Organization Address [facility] Co de Phone Number [facility] [place] [address] * Type and screen (08/01/2017 8:54 PM CORPORATE ETHICS OFFICER) [place], indirect Negative [facility] ABO Rh A Positive [facility] Blood specimen (specimen) 08/01/2017 8:54 PM CORPORATE ETHICS OFFICER 08/01/2017 9:03 PM CORPORATE ETHICS OFFICER Narrative [facility] - 08/01/2017 10:00 PM CORPORATE ETHICS OFFICER Padmini Free Lambert PETROLEUM SAMPLER LAB BLOOD BANK TEST ORDERA BLES Final Result Performing Organization Address [facility] de Phone Number [facility] Department [place] [address] * aPTT (08/01/2017 8:54 PM CORPORATE ETHICS OFFICER) aPTT 32.2 25.0 - 37.0 sec [facility] Comment: Interpretive Data Therapeutic heparin range:60.0 - 94.0 sec based on correlation with therapeutic heparin activity range of 0.3 -0.7 Units/mL. Current interpretive data was last revised on 2011. Blood specimen (specimen) 08/01/2017 8:54 PM CORPORATE ETHICS OFFICER 08/01/2017 9:06 PM CORPORATE ETHICS OFFICER Narrative [facility] - 08/01/2017 9:29 PM CORPORATE ETHICS OFFICER Padmini Free Lambert PETROLEUM SAMPLER LAB BLOOD ORDERABLES Final Result [facility] Department [place] [address] * Protime-INR (08/01/2017 8:54 PM CORPORATE ETHICS OFFICER) PT 12.7 8.5 - 13.0 sec [facility] INR 1.18 0.80 - 1.21 [facility] Comment: Interpretive Data Inpatient therapeutic ranges* Atrial fibrillation ?2.0-3.0 INR Venous thrombo-embolism ?2.0-3.0 INR Bioprosthetic heart valve ?* Mechanical heart valve, bileaflet or tilting disk,aortic position ? 2.0-3.0 INR All other,or bileaflet or tilting disk, in mitral position ? 2.5-3.5 INR *See the pharmacy resource directory (PHRED) for an updated copy of the Tool Book at [email or web address] Current Interpretive Data was last revised 2011. Blood specimen (specimen) 08/01/2017 8:54 PM CORPORATE ETHICS OFFICER 08/01/2017 9:06 PM CORPORATE ETHICS OFFICER Narrative [facility] - 08/01/2017 9:29 PM CORPORATE ETHICS OFFICER Padmini Free Fausto PETROLEUM SAMPLER LAB BLOOD ORDERABLES Final Result Performing Organization Address City/[facility]/ZIP Co de Phone Number JOE [facility] Department [place] [address] * Surgical pathology (08/01/2017 1:48 PM CORPORATE ETHICS OFFICER) 08/01/2017 1:48 PM CORPORATE ETHICS OFFICER 08/02/2017 4:21 AM CORPORATE ETHICS OFFICER Narrative 08/08/2017 12:43 PM CORPORATE ETHICS OFFICER [facility] Pathology [facility] [place] [address] SURGICAL PATHOLOGY REPORT FINAL Patient Name: PATRICIA MANDEL ? Address: [address] ??Service: ??Emergency ??[place], [place] ??[address] ??Location: ??[facility] 0145 Taken: 08/01/2017 Gender: M ?? Received: 08/02/2017 : 1995 (Age: 21) Hospital #: ??[id number] Accessioned: 08/02/2017 ?Patient Type: ??[facility] Inpatient Reported: 08/08/2017 ? Physician(s): EUNICE Chatterjee ? Diagnosis: Tonsil, right, biopsy - ?Marked acute inflammation and necrosis - ? See comment mw/08/03/2017 16:54 By this signature, I attest that the above diagnosis is based upon my personal examination of the slides(and/or other material indicated in the diagnosis). ?? Ramirez Salamanca M.D. ??Report Electronically Reviewed and Signed Out By ??Ramirez Salamanca M.D. 08/08/2017 12:43:24 Diagnosis Comment Correlation with clinical findings, serology and microbiology testing is recommended. Microscopic Description and Comment: Sections of right tonsil biopsy show tonsil tissues with marked acute inflammation and necrosis. ?? Special stains for AFB, Herminio and GMS performed on sections for microorganisms. ??GMS is negative for fungal forms, and highlights a bacterial overgrowth that may represent bacillar colonization of the tonsil. ??AFB and Herminio stains are negative for mycobacteria. ?Ezra Velázquez MD, PhD ?History: The patient is a 21-year-old man. ??Operative procedure: Right tonsil biopsy. Specimen(s) Received: A: Right tonsil Gross Description: The specimen is received in one formalin-filled container labeled with the patient's name and right tonsil. ??Per the hematopathology fellow the specimen is too scant to perform a lymphoma workup and is placed in formalin for permanents and routine histologic examination. It contains two irregular herzog-pink soft tissue fragments measuring 0.3 x 0.1 x 0.1 cm in aggregate. ??Stained with hematoxylin. ??Filtered and wrapped. ??Labeled A1. ??Jar 0. cnewho/08/02/2017 10:45 ?Merlyn Hooper, ANTONI, CT (ASCP ? By this signature, I attest that the above diagnosis is based upon my personal examination of the slides(and/or other material). ?? Surgical Pathology report is available electronically in Clinical Desktop. The performance characteristics of some immunohistochemical stains, fluorescence in-situ hybridization tests and immunophenotyping by flow cytometry cited in this report (if any) were determined by the Surgical Pathology Department at [facility] as part of an ongoing manager quality systems program and in compliance with federally mandated [...] characteristics determined by the Surgical Pathology Department of [facility]. ??It has not been cleared or approved by the [place]. S. Food and Drug Administration. Brittany Whitley NP LAB PATHOLOGY ORDE PARVIN Final Result * SURGICAL PATHOLOGY (08/01/2017 12:00 AM CORPORATE ETHICS OFFICER) Narrative 08/01/2017 12:00 AM CORPORATE ETHICS OFFICER Ordered by an unspecified provider. us Historical Provider MD LAB PATHOLOGY ORDERABLES Final Result documented in this encounter Visit Diagnoses Not on filedocumented in this encounter Care Teams Pumper Gauger Relationship Specialty Start Date End Date Frantz Vidales Jr., MD PCP - General 08/01/17 10/13/20 documented as of this encounter
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
--- OUTSIDE RECORDS SUMMARY | 2024-08-10 03:46 | XMS_ITS | Encounter Summary ---
Author Organization [facility] Address 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
--- OUTSIDE RECORDS SUMMARY | 2024-08-10 03:47 | XMS_ITS | Encounter Summary ---
Author Organization [facility] Address [address] Attn: Epic Prelude ADT AVIS RAYO [address] Care Team Providers Care Orthodontist Vice President Name Role Phone Unavailable Primary Care Provider Unavailabl e Encounter Details Date Type Department Care Team (Latest Contact Info) Description 03/18/2024 Travel Social History Tobacco Use Types Packs/Day Years Used Date Smoking Tobacco: Former Cigarettes 0.3 3 2 019 - 2021 Smokeless Tobacco: Never Alcohol Use Standard Drinks/Week Comments Yes 0 (1 standard drink = 0.6 oz pur e alcohol) sometimes Feeling Safe Answer Date Recorded Are you in a relationship wi th someone who hurts you emotionally and/or physically? 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
--- OUTSIDE RECORDS SUMMARY | 2024-08-10 03:47 | XMS_ITS | Encounter Summary ---
Author Organization [facility] Address [address] [place] [address] Care Team Providers Care Inventory Planner Name Role Phone Unavailable Primary Care Provider Unavailabl e Encounter Details Date Type Department Care Team (Late st Contact Info) Description 05/26/2024 External Device Data ST[facility] ABSTRACTION Provider, [...] on file Legal Sex Male 9:34 AM FIRST AID NURSE Gender Identity Not on file Sexual Orientation Not on file documented as of this encounter Plan of Treatment Not on file documented as of this encounter Visit Diagnoses Not on filedocumented in this encounter
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
--- OUTSIDE RECORDS SUMMARY | 2024-08-10 03:47 | XMS_ITS | Encounter Summary ---
Author Organization [facility] Address [address] [place] [address] Care Team Providers Care Security Intelligence Analyst Name Role Phone Unavailable Primary Care Provider Unavailabl e Encounter Details Date Type Department Care Team (Late st Contact Info) Description 05/13/2024 External Device Data STL ABSTRACTION Provider, [...] on file Legal Sex Male 9:34 AM NETWORK SUPPORT MANAGER Gender Identity Not on file Sexual Orientation Not on file documented as of this encounter Plan of Treatment Not on file documented as of this encounter Visit Diagnoses Not on filedocumented in this encounter
--- OUTSIDE RECORDS SUMMARY | 2024-08-10 03:47 | XMS_ITS | Encounter Summary ---
Author Organization [facility] Address [address] [place] [address] Care Team Providers Care Bill Clerk Name Role Phone Unavailable Primary Care Provider Unavailabl e Encounter Details Date Type Department Care Team (Late st Contact Info) Description 06/24/2024 External Device Data STL ABSTRACTION Provider, [...] on file Legal Sex Male 9:34 AM DINKEY BRAKEMAN Gender Identity Not on file Sexual Orientation Not on file documented as of this encounter Plan of Treatment Not on file documented as of this encounter Visit Diagnoses Not on filedocumented in this encounter
--- OUTSIDE RECORDS SUMMARY | 2024-08-10 03:47 | XMS_ITS | Encounter Summary ---
Author Organization [facility] Address [address] [place] [address] Care Team Providers Care Slot Attendant Name Role Phone Unavailable Primary Care Provider Unavailabl e Reason for Visit * Reason Comments Suicidal 28M to ED with c/o S I. Patient plans OD on meth to kill himself. Reports he had meth and a firearm but he got rid of it . Reports giving firearm to his best friend. * Auth/Cert (Routine) Specialty Diagnoses / Procedures Referred By Ara cazares Referred To Contact Emergency Medicine [facility] Emergency Department [address] [place] [address] Phone: tel: fax: Referral ID Status Reason Start Date Expiration Date Visits Re quested Visits Authorized [id number] 1 1 Encounter Details Date Type Department Care Team (Latest Contact Info) Description 01/17/2024 10:02 AM CDT - 01/25/2024 12:00 PM CDT Hospital Encounter [facility] Behavioral [facility] [address] [place] [address] [address] [place] [address] Fernando Menon MD [address] [facility] [place] [address] Laquita Mcrae MD [address] [place] [address] Dawson Armenta MD [address] [place] [address] Avtar Ballard MD [address] [place] [address] [place] [address] [place] [address] Bipolar disorder, current episode depressed, severe Discharge Disposition: Home or Self Care Social History Tobacco Use Types Packs/Day Years Used Date Smoking Tobacco: Former Cigarettes Smokeless Tobacco: Never Tobacco Cessation:Counseling Given: Not Answered Alcohol Use Standard Drinks/Week Comments Yes 0 (1 standard drink = 0.6 oz pur e alcohol) sometimes Feeling Safe Answer Date Recorded Are you in a relationship wi th someone who hurts you emotionally and/or physically? No 01/18/2024 Food Insecurity Answer Date Recorded Social/Environmental Concerns No concerns Transportation Needs Answer Date Record ed Social/Environmental Concerns No concerns Housing Stability Answer Date Recorded Social/Environmental Concerns No concerns Utility Needs Answer Date Recorded Social/Environmental Concerns No concerns Sex and Gender Information Value Date Recorded Sex Assigned at Not on file Legal Sex Male 9:34 AM [employer] Gender Identity Not on file Sexual Orientation Not on file documented as of this encounter Last Filed Vital Signs Vital Sign Reading Time Taken Comments Blood Pressure 126/71 01/24/2024 7:37 PM CDT Pulse 82 01/24/2024 7:37 PM CDT Temperature 36.3 ??C (97.3 ??F) 01/24/2024 7:37 PM CD T Respiratory Rate 16 01/24/2024 7:37 PM CDT Oxygen Saturation 97% 01/24/2024 7:37 PM CDT Inhaled Oxygen Concentration - - Weight 81.6 kg (180 lb) 01/22/2024 1:00 AM CDT Height 182.9 cm (6') 01/22/2024 1:00 AM CDT Body Mass Index 24.41 01/22/2024 1:00 AM CDT documented in this encounter Discharge Summaries * Avtar Ballard MD - 01/25/2024 9:04 AM CDT Discharge Summary: ADMIT: 01/17/2024 DISCHARGE: 01/25/2024 Assessment: For specifics prior to admission please refer to admission History & Physical, and Medical consultation. Reason For Hospitalization: drug abuse/mood lability Discharge DX:.Bipolar disorder, current episode depressed, severe Labs: Lab Results Component Value Date WBC 6.0 01/18/2024 HGB 14.4 01/18/2024 HGBPOC 14.7 01/17/2024 HCT 45.2 01/18/2024 HCTPOC 44 01/17/2024 PLT 174 01/18/2024 MCV 90.8 01/18/2024 Lab Results Component Value Date NA 136 01/18/2024 K 4.1 01/18/2024 CL 100 01/18/2024 CO2 25 01/18/2024 CA 10.1 01/18/2024 BUN 17 01/18/2024 CREAT 0.81 01/18/2024 GLUCOSE 80 01/18/2024 TOTALPROTEIN 8.0 01/18/2024 ALBUMIN 4.4 01/18/2024 BILITOTAL 0.4 01/18/2024 ALKPHOS 81 01/18/2024 AST 35 01/18/2024 ALT 18 01/18/2024 ANIONGAP 11 01/18/2024 Lab Results Component Value Date/Time CHOLTOT 129 01/17/2024 04:37 PM HDL 35 (L) 01/17/2024 04:37 PM LDLCALC 85 01/17/2024 04:37 PM TRIGLYCERIDE 43 01/17/2024 04:37 PM Lab Results Component Value Date/Time HGBA1C 5.6 01/17/2024 04:37 PM No results found for: DRGSCRNU , DRGSCRNP Lab Results Component Value Date/Time ETHANOL <10.10 01/01/2024 03:03 PM ETHANOL <0.01 01/01/2024 03:03 PM Hospital course: Patient was admitted. Patient was treated with individual psychotherapy, group therapy, and inpatient milieu. Patient showed a good response with stabilization of symptoms. Patient was felt to be able to transition to a lower level of care. Patient was provided with education regarding medication effects/ side effects- potential risks/benefits to increase knowledge and understanding to help insure compliance following discharge. Patient was able to contract to safety. Patient agreed to crisis plan. Agreed to return to hospital if signs of decompensation occurs.Patient has available family support. Client is willing to participate in after care plan. Patient was given action/safety plan of resources that are available if an emergency arises after discharge. MSE: Alert O X 3, friendly, cooperative. No psychomotor retardation. No agitation. Speech: normal in tone, volume, rate, and spontaneous. Mood : good Affect: appropriate Thought process: goal directed, logical, no flight of ideas or looseness of association. Thought content: No suicidal ideation, plan , or intent. No Homicidal ideation, plan, or intent. Nodelusions. No auditory or visual hallucinations. Insight: improved. Judgement: improved. Medication List CHANGE how you take these medications doxepin 25 mg capsule Commonly known as: SINEquan What changed: when to take this Take 1 Capsule (25 mg) by mouth daily at bedtime. Signed by: Dr. Marilyn Armenta Quantity: 15 Capsule Refills: 0 Indications of Use: difficulty sleeping CONTINUE taking these medications Biktarvy 50-200-25 mg Tablet Take 1 Tablet by mouth daily. Signed by: Dr. Marilyn Daly Quantity: 30 Tablet Refills: 0 Generic drug: doeemudabit-ptgzlewdlvvmw-egkxfvhqt alafenam DULoxetine 60 mg Capsule, Delayed Release(E.C.) Commonly known as: CYMBALTA Take 1 Capsule (60 mg) by mouth daily. Signed by: Dr. Marilyn Armenta Quantity: 30 Capsule Refills: 0 hydrOXYzine HCL 50 mg tablet Commonly known as: ATARAX Take 1 Tablet (50 mg) by mouth every 6 hours as needed for Anxiety. Signed by: Dr. Marilyn Armenta Quantity: 30 Tablet Refills: 0 STOP taking these medications ARIPiprazole 5 mg tablet Commonly known as: ABILIFY sertraline 100 mg tablet Commonly known as: ZOLOFT traZODone 50 mg tablet Commonly known as: DESYREL Where to Get Your Medications These medications were sent to [address] [address] doxepin 25 mg capsule DULoxetine 60 mg Capsule, Delayed Release(E.C.) hydrOXYzine HCL 50 mg tablet Home or Self Care Outcome: stable Prognosis: Guarded depends on abstaining from drugs of abuse and compliance with follow up plan. Patient Discharged to: Living in [facility] Discharging Physician: Avtar Chavez MD Time Spent: 31 Minutes. Next Level of Care Recommendations: It is recommended you follow up with an outpatient psychiatric provider for continued care. You have been referred to [facility]. Services with [facility] can include medication management, case management, and counseling. Please continue to work with your case management coordinator Isadora De La Rosa, who you can reach at [phone]. You can also contact their intake line at [phone]. LOCATIONS: [facility] office [address] [place] [address] (located on the corner of [facility] across from [facility]) Lamplighter [id number] [place] [address] [address] 5 Primary Care Follow up: If you do not have a PCP you may use the Physician Referral Service [facility] Physician Referral Service is a free, confidential, computerized service staffed by referral specialists. Our co-workers will help you find the names of several physicians that meet your requirements and provide you with their qualifications and background information. Referrals are based on your specific criteria: Requested specialty Office location Primary hospital practice site Specialized training Participation in insurance plans Our co-workers also can explain [facility] programs and services. Call Sunday through Sunday at [phone] or . You can access the service on the web at [email or web address] documented in this encounter Discharge Instructions * Discharge Instructions* Dasia Cook MSW - 01/19/2024 10:36 AM CDT HOME PLAN: Return to Sober Living Address: Living in [facility] [address] [place] [address] OR Long-Term Risk Lead/LG: Isadora ([facility]) ([phone]) PSYCHIATRY and Therapy Follow-up: It is recommended you follow up with an outpatient psychiatric provider for continued care. You have been referred to [facility]. Services with [facility] can include medication management, case management, and counseling. Please continue to work with your case management coordinator Isadora De La Rosa, who you can reach at [phone]. You can also contact their intake line at [phone]. LOCATIONS: [facility] office [address] [place] [address] (located on the corner of [facility] across from [facility]) [place] [address] [address] 5 Primary Care Follow up: If you do not have a PCP you may use the Physician Referral Service [facility] Physician Referral Service is a free, confidential, computerized service staffed by referral specialists. Our co-workers will help you find the names of several physicians that meet your requirements and provide you with their qualifications and background information. Referrals are based on your specific criteria: Requested specialty Office location Primary hospital practice site Specialized training Participation in insurance plans Our co-workers also can explain [facility] programs and services. Call Sunday through Sunday at [phone] or . You can access the service on the web at [email or web address] Below is a list of medical clinics in the [place] area: Bushra Cintron [facility] [address] [place] [address] [facility] [address] [place] [address] [facility] [address] [place] [address] [facility] [address] [place] [address] [facility] [address] [place] [address] [facility] [address] [place] [address] [facility] [address] [place] [address] [facility] [address] [place] [address] [facility] [address] [place] [address] [facility] [address] [place] [address] [facility] [address] [place] [address] [facility] [address] [place] [address] [facility] [address] [place] [address] Brendan Chauhan [facility] [address] [place] [address] [facility] of [address] [address] [facility] [address] [facility] [place] [address] National Suicide Prevention Lifeline # 988 Crisis Text Line - Text ???Start?? to 548-470 ADDITIONAL RESOURCES: Shelters and Homeless Resources: Shelters Please call 211 or [phone] to check on custodial availability. Long-Term beds are not guaranteed. It is recommended you call early in the morning. Drop-in Centers [facility] [address] [place] [address] Day time drop-in center Lunch is every day from 12-12:30 pm. Morning discovery sessions Sunday-Sunday 8:00am Afternoon discovery sessions Sunday-Sunday 1:00pm Showers, laundry, mail services, medical/mental health care, employment/training services, and housing resources. [facility] [address] [place] [address] Depression Bipolar Support [place] ([facility]) Open Sunday-Sunday 9:00am-3:00pm [address] [address] [facility] [address] for women and children Walk-in hours Sunday-Sunday 10:00am-4:00pm [facility] [address] [place] [address] Food pantry hours: Sunday and Sunday 1:00pm-4:00pm [employer] provide computers and computer labs that give immediate access to the internet. And you can get an e-mail address there. Extended Stay Hotels [facility] - [phone]. Located at [address] [place] [place] [address]. [facility]- [phone]. [address] [place] [address]. [facility] - [phone]. Located [address] [place] [address] [facility] Hot - [phone]. [address] [facility]. [facility] -[phone]. Located at [address] [facility] [place] [address] [facility]- [phone]. Located at [address] [place] [address]. ADDITIONAL RESOURCES Medical clinic options include: Bushra Cintron - [address] [place] [address] - [phone] [facility] [phone] (New patient appointments are accepted on Mondays) Yana Franz or Brendan Pitts [facility] - [phone] (Centralized scheduling line) [address] - [phone] [facility] [phone] [facility] - [phone] (Must walk-in and complete pre- registration for services.Please call to learn items needed for pre-registration) [facility] - [phone] (Must complete an application) Substance Use Treatment Referrals Inpatient [facility] ([facility]) [phone] Inpatient Medical Detox, Residential, Outpatient Services, Anti-Craving Medications, Transitional Housing, Aftercare (Adults 18+) Locations: [facility] Insurance(s): Most major insurances (no Medicare, Medicaid, or HealthCare USA) [facility] [phone] Inpatient Medical Detox, Residential, Outpatient Services, Anti-Craving Medications, Aftercare (Adult and Adolescent Programs) Locations: [facility], [facility], [facility] Insurance(s): Most major insurances, Medicaid, State-Funding [facility] [phone] Inpatient Medical Detox, Residential, Outpatient Services, Anti-Craving Medications, Aftercare (Adults 18+) Main Location: [place] [facility] Locations: [facility], [facility], [place], [place] Insurance(s): Most major insurances (no , Medicare, or Medicaid) [facility] [phone] Inpatient Medical Detox, Residential, Outpatient Services, Anti-Craving Medications, Aftercare (Adult and Adolescent Programs) Locations: [place] ([facility], [facility], [place], [place], [place]) Insurance(s): Most major insurances, [place] Medicaid, [place] State-Funding (no [place] Medicaid or Medicare) [facility] [phone] Inpatient Medical Detox, Short/Long-Term Residential, Outpatient Services, Transitional Housing (Adults 18+) Location: [facility] Insurance(s): Venus Sinha [facility] [phone] Short/Long-Term Residential, Outpatient Services, Day Treatment Program (Adults Only) Location: [facility] Insurance(s): Medicaid Only [facility] [phone] Inpatient Medical Detox, Short-Term Hospitalization, Typically a 3 day, 4 night detox (Adults 18+) Locations: [facility] Insurance(s): Most major insurances, including Medicare and Medicaid [facility] [phone] Residential Services, Outpatient Services, Early Intervention (Adolescents; Adult Programs) Locations: [place] and [facility] Insurance(s): Most major insurances, including Medicare and Medicaid [facility] [phone] Inpatient Medical Detox, Residential, Outpatient Services, Aftercare (Adult and Adolescent Programs) Locations: Camron Abreu [place], [place], [place], [facility], [place], [place], [place], [place] (more online) Insurance(s): Most major insurances, Medicare, and Medicaid [facility] (Women Only) [phone] Residential, Outpatient Services, Plumber Supervisor Services Location: [facility] Insurance(s): State-Funding, Medicare, Medicaid [facility] (Men Only) [phone] Inpatient Medical Detox, Short-Term Residential, Outpatient Services, Transitional Housing Location: [facility] Insurance(s): State-Funding [facility] [phone] Inpatient Medical Detox, Residential, Outpatient Services, Anti-Craving Medications, Aftercare, Family Program (Ages 16+) Inpatient Location: [place] Outpatient Location: [facility] Abreu Insurance(s): Most major insurances (No Medicare or Medicaid) Outpatient [facility] [phone] Outpatient Detox, Aftercare, Anti-Craving Medications (Adult and Adolescent Programs) Location: [place] Insurance(s): Most major insurances and, Managed Medicaids (No Medicare) [facility] [phone] Outpatient Services, Day Treatment Program, Counseling Services (Adult and Adolescent Programs) Locations: [place] Insurance(s): Most major insurances, including Medicare and Medicaid National [place] on Alcoholism and Drug Abuse - [facility] [phone] Substance Abuse assessments (9:30am - 3pm Sunday - Sunday; Appointment Only), Referrals, General Substance Abuse Help/Information Line (9am - 5pm Sunday - Sunday); Adult and Adolescent Assessments Location: [place] Insurance(s): None, Adult Appointments: $50, Adolescent (19 and under): Free ??Necesita Ayuda? ([place]ish NCADA Help Line) [phone] Sustancia general Abuso Ayuda / L??lali de Informaci??n para los clientes de habla espa??clifford (parte de la NCADA-ST; caro descripci??n anterior Suicide Prevention/Crisis Hotlines [facility] Behavioral Health Intake Department [phone] [facility] Behavioral Health Intake Department is professionally staffed and offers free, confidential evaluations for anyone needing assistance with a psychiatric, behavioral or addictive disorder. Evaluations, as well as referrals to physicians or community resources, are available 24 hoursa day, 7 days a week. [facility] [phone] ([phone]) [facility] is one of the nation???s oldest suicide prevention and crisis hotlines. [facility] operates 24 hours a day, 7 days a week, 365 days a year. Behavioral Health Response ([facility]) [phone] (toll free) Behavioral Health Response (R) is a professionally staffed crisis response service. R provides expert behavioral health, crisis response, and outreach services, 24 hours a day, seven days a week to agencies and companies worldwide. National Suicide Prevention Hotline 0-324-382-TALK (0065) A free, 24-hour hotline available to anyone in suicidal crisis or emotional distress. Your call will be routed to the nearest crisis center to you. National Hopeline Network 8-867-XWTZHLT KUTO (Kids Under Twenty-One) Crisis Helpline 7-489-229-KU (6099) Youth staffed every day after 4pm [employer] The KU Crisis Helpline is a confidential telephone hotline available to any youth who may be in need of assistance, referral information or crisis services. The [facility] Helpline is one of a handful [facility] community [facility] and nursing home staffed exclusively by youth volunteers. National [place] on Mental Illness ([facility]) [phone] A referral for smoking cessation support/counseling services was offered to you; however, you have refused that referral at this time. If you would like smoking cessation resources in the future, youare advised to contact the [place] Tobacco Quitline. 5-666-ZTGY-NOW documented in this encounter Medications at Time of Discharge ARIPiprazole (ABILIFY) 10 mg tablet Starting 01/25, Take 1 Tablet (10 mg) by mouth daily. 30 Tablet 01/25/2024 11:47 AM CDT 01/26/2024 02/08/2024 doxepin (SINEquan) 25 mg capsuleIndicatio ns:insomnia Take 1 Capsule (25 mg) by mouth daily at bedtime. 15 Capsule 01/21/2024 02/08/2024 DULoxetine (CYMBALTA) 60 mg Capsule, Delayed Release(E.C.) Take 1 Capsule (60 mg) by mouth daily. 30 Capsule 01/25/2024 11:46 AM CDT 01/21/2024 02/08/2024 hydrOXYzine HCL (ATARAX) 50 mg tablet Take 1 Tablet (50 mg) by mouth every 6 hours as needed for Anxiety. 30 Tablet 01/25/2024 11:46 AM CDT 01/21/2024 02/08/2024 bictegravir-emtr icitabine-tenofo vir alafenam (Biktarvy) 50-200-25 mg Tablet Take 1 Tablet by mouth daily. 30 Tablet 06/30/2022 11:11 AM [employer] 06/30/2022 02/08/2024 documented as of this encounter Progress Notes * Dasia Cook MSW - 01/25/2024 10:41 AM CDT 01/25/24 1039 Discharge Planning Plan Discharge To Other (Comment) (Long-Term with bus passes) Does the patient have family and/or a caregiver that is willing, able and available to assist if needed? Yes Name and Relation Isadora PARKINSON with [facility] Patient/Family Communications Confirmed Discharge Plan (With pt.) Discharge Plan Agreed Upon Patient Resource List Given To Patient Follow-up on Referrals Sent Yes Has discharge transport been arranged? Yes Transportation Provider [facility] Transportation Contact Name [facility] Final Discharge Arrangements Attempt Made to Contact Caregiver? Yes (SW left [facility] a Voicemail with instructions) CareGiver agreeable to discharge plan (Unknown, pt would not allow SW to call pt mother and SW left [facility] a voicemail.) Final Discharge Disposition Long-Term Firearms secured Other (comment) (Pt deneid access.) Safety Plan completed Yes Access to meds at discharge Yes (Filled at [facility] for D/c) Duty to warn complete N/A See contact note regarding d/c. * Avtar Ballard MD - 01/24/2024 4:08 PM CDT [facility] INPATIENT PROGRESS NOTE SUBJECTIVE Chief Complaint: I am looking for rehab place or custodial Interval History of Present Illness: The medical record reflects the history of present illness as obtained by myself in discussion withthe patient. I reviewed the chart, discussed patient???s care with the treatment team and interviewed the patient. The patient currently endorses or displays the following: maribell is doing better, denies any SI/HI. Mood is improved. Adherence to medication: yes Side effects noted or reported: no Staff report: Behavioral disturbance noted or reported: no Participation in therapeutic activities: yes Associated Symptoms: MOOD:appropriate to circumstances. SLEEP: Sleep/Rest/Relaxation: no problem identified (01/24/24 06) Sleep Hours Night (6p-6a): 9 (01/24/24 06) Family & Social History: [x] No changes from admission [] Changes/additions include: Current Medications: Facility-Administered Medications as of 01/24/2024 Medication Dose Frequency Provider Last Rate Last Admin ARIPiprazole (ABILIFY) tablet 10 mg 10 mg daily Avtar Ballard MD 10 mg at 01/24/24944 hydrOXYzine HCL (ATARAX) tablet 50 mg 50 mg every 6 hours PRN Laquita Mcrae MD 50 mg at 01/23/242033 haloperidol lactate (HALDOL) injection 5 mg 5 mg every 6 hours PRN Laquita Mcrae MD And diphenhydrAMINE (BENADRYL) injection 50 mg 50 mg every 6 hours PRN Laquita Mcrae MD haloperidoL (HALDOL) tablet 5 mg 5 mg every 4 hours PRN Laquita Mcrae MD 5 mg at 01/20/242005 And diphenhydrAMINE (BENADRYL) tablet 50 mg 50 mg every 4 hours PRN Laquita Mcrae MD 50 mg at 01/20/242005 DULoxetine (CYMBALTA) capsule 60 mg 60 mg daily Laquita Mcrae MD 60 mg at 01/24/24944 doxepin (SINEquan) capsule 25 mg 25 mg daily BEDTIME Laquita Mcrae MD 25 mg at 01/23/242033 benztropine (COGENTIN) tablet 1 mg 1 mg every 12 hours PRN Laquita Mcrae MD 1 mg at 01/20/241747 Or benztropine (COGENTIN) injection 1 mg 1 mg every 12 hours PRN Laquita Mcrae MD aluminum - magnesium - simethicone (MYLANTA) 200-200-20 mg/5 mL oral suspension 30 mL 30 mL every 6hours PRN Laquita Mcrae MD promethazine (PHENERGAN) tablet 25 mg 25 mg every 4 hours PRN Laquita Mcrae MD polyethylene glycol (MIRALAX) packet 17 Gram 17 Gram every 12 hours PRN Laquita Mcrae MD loperamide (IMODIUM) capsule 2 mg 2 mg every 4 hours PRN Laquita Mcrae MD acetaminophen (TYLENOL) tablet 650 mg 650 mg every 6 hours PRN Laquita Mcrae MD ibuprofen (MOTRIN) tablet 400 mg 400 mg every 6 hours PRN Laquita Mcrae MD wmdasamgqab-xubbkkbtaqaxh-spnjkcnof alafenam (BIKTARVY) 50-200-25 mg per tablet 1 Tablet 1 Tablet daily Laquita Mcrae MD 1 Tablet at 01/24/24944 OBJECTIVE Vital Signs: BP 119/73 (BP Location: Right arm, Patient Position (BP): Sitting) Pulse 98 Temp 97.7 ??F (36.5??C) (Temporal) Resp 18 Ht 6' (1.829 m) Wt 81.6 kg (180 lb) SpO2 99% BMI 24.41 kg/m?? Mental Status Exam: Mental Status Evaluation: Appearance: casually dressed Behavior: cooperative with exam Speech: normal pitch and normal volume Mood: Good Affect: appropriate Thought Process: within normal limits Thought Content: appropriate responses to questions asked Sensorium: person, place, and time/date Cognition: grossly intact Insight & Judgement: fair Labs: I have reviewed all labs; pertinent results are noted below. No results found for this or any previous visit (from the past 24 hour(s)). 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 Suicidal ideations 01/17/2024 Assessment & Plan Note: Resolved. Monitor on SP. Hypersomnolence 01/17/2024 Bipolar disorder, current episode depressed, severe 07/12/2023 Assessment & Plan Note: Suboptima control -cymbalta 60 mg AM -abilify 10 mg daily RENEE (generalized anxiety disorder) 06/27/2022 HIV infection 07/31/2019 Plan Supportive therapy, psychoeducation and medication education were provided. Alternative treatment options, risks and benefits were reviewed. Patient agreed with the plan. Further adjustment will be decided based on progress and consent. Safety plan was reviewed; patient???s safety will remain monitored every 15 minutes. Coordination with: [x] Nursing [x] Care management/Social Work [] Ambulatory Physician [] Family/Guardian I discussed with the patient, the severity/complexity of their illness which is medium. 6. Moderate, 1 or more chronic illnesses with exacerbation, progression, or side effects of treatment;, Management of psychiatric medications, and Adherence to treatment is impacted by homelessness or another SDOH 7. Disposition planning: TBD 8. Status - This patient requires continued daily supervision on an inpatient psychiatric unit because: Patient displays an inability to maintain adequate nutrition and self-care due to psychiatric disorder, and family/community support cannot be relied upon to provide essential care Patient displays a severe decline in their level of functioning, in several areas (work, family, ADL's, interpersonal), to the degree that they are unable to care for themselves Efforts to manage psychiatric symptoms/behavior at a lower level of care were ineffective and resulted in the need for acute admission. There has been insufficient improvement in ambulatory support measures to safely discharge the patient to a lower level of care. * Avtar Ballard MD - 01/23/2024 8:36 AM CDT [facility]IENT PROGRESS NOTE SUBJECTIVE Chief Complaint: I am ok but [facility] Interval History of Present Illness: The medical record reflects the history of present illness as obtained by myself in discussion withthe patient. I reviewed the chart, discussed patient???s care with the treatment team and interviewed the patient. The patient currently endorses or displays the following: maribell says mood is good and feels meds are working well.no natividad or hypomania. Adherence to medication: yes Side effects noted or reported: no Staff report: Behavioral disturbance noted or reported: no Participation in therapeutic activities: yes Associated Symptoms: SLEEP: Sleep/Rest/Relaxation: no problem identified;appears asleep (01/23/24 0600) Sleep Hours Night (6p-6a): 12 (01/23/24 0600) Family & Social History: [x] No changes from admission [] Changes/additions include: Current Medications: Facility-Administered Medications as of 01/23/2024 Medication Dose Frequency Provider Last Rate Last Admin ARIPiprazole (ABILIFY) tablet 10 mg 10 mg daily Avtar Ballard MD 10 mg at 01/22/24 1737 hydrOXYzine HCL (ATARAX) tablet 50 mg 50 mg every 6 hours PRN Laquita Mcrae MD 50 mg at 01/22/242119 haloperidol lactate (HALDOL) injection 5 mg 5 mg every 6 hours PRN Laquita Mcrae MD And diphenhydrAMINE (BENADRYL) injection 50 mg 50 mg every 6 hours PRN Laquita Mcrae MD haloperidoL (HALDOL) tablet 5 mg 5 mg every 4 hours PRN Laquita Mcrae MD 5 mg at 01/20/242005 And diphenhydrAMINE (BENADRYL) tablet 50 mg 50 mg every 4 hours PRN Laquita Mcrae MD 50 mg at 01/20/242005 DULoxetine (CYMBALTA) capsule 60 mg 60 mg daily Laquita Mcrae MD 60 mg at 01/22/24 0919 doxepin (SINEquan) capsule 25 mg 25 mg daily BEDTIME Laquita Mcrae MD 25 mg at 01/22/240 benztropine (COGENTIN) tablet 1 mg 1 mg every 12 hours PRN Laquita Mcrae MD 1 mg at 01/20/24 1748 Or benztropine (COGENTIN) injection 1 mg 1 mg every 12 hours PRN Laquita Mcrae MD aluminum - magnesium - simethicone (MYLANTA) 200-200-20 mg/5 mL oral suspension 30 mL 30 mL every 6hours PRN Laquita Mcrae MD promethazine (PHENERGAN) tablet 25 mg 25 mg every 4 hours PRN Laquita Mcrae MD polyethylene glycol (MIRALAX) packet 17 Gram 17 Gram every 12 hours PRN Laquita Mcrae MD loperamide (IMODIUM) capsule 2 mg 2 mg every 4 hours PRN Laquita Mcrae MD acetaminophen (TYLENOL) tablet 650 mg 650 mg every 6 hours PRN Laquita Mcrae MD ibuprofen (MOTRIN) tablet 400 mg 400 mg every 6 hours PRN Laquita Mcrae MD rlhhvnyntkz-zqojhwwitxymf-sbxynhoin alafenam (BIKTARVY) 50-200-25 mg per tablet 1 Tablet 1 Tablet daily Laquita Mcrae MD 1 Tablet at 01/22/24 09 OBJECTIVE Vital Signs: BP 119/76 (BP Location: Left arm, Patient Position (BP): Supine) Pulse 61 Temp 97.9 ??F (36.6 ??C) (Temporal) Resp 16 Ht 6' (1.829 m) Wt 81.6 kg (180 lb) SpO2 97% BMI 24.41 kg/m?? Mental Status Exam: Mental Status Evaluation: Appearance: age appropriate Behavior: cooperative with exam Speech: normal pitch and normal volume Mood: Good Affect: appropriate Thought Process: within normal limits Thought Content: appropriate responses to questions asked Sensorium: person, place, and time/date Cognition: grossly intact Insight & Judgement: fair Labs: I have reviewed all labs; pertinent results are noted below. No results found for this or any previous visit (from the past 24 hour(s)). 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 Suicidal ideations 01/17/2024 Assessment & Plan Note: Resolved. Monitor on SP. Hypersomnolence 01/17/2024 Bipolar disorder, current episode depressed, severe 07/12/2023 Assessment & Plan Note: Suboptima control -cymbalta 60 mg AM -abilify 10 mg AM RENEE (generalized anxiety disorder) Suboptimal control Atarax prn 06/27/2022 HIV infection 07/31/2019 Plan Supportive therapy, psychoeducation and medication education were provided. Alternative treatment options, risks and benefits were reviewed. Patient agreed with the plan. Further adjustment will be decided based on progress and consent. Safety plan was reviewed; patient???s safety will remain monitored every 15 minutes. Coordination with: [x] Nursing [x] Care management/Social Work [] Ambulatory Physician [] Family/Guardian I discussed with the patient, the severity/complexity of their illness which is medium. 6. Moderate, 1 or more chronic illnesses with exacerbation, progression, or side effects of treatment;, 2 or more stable, chronic illnesses;, and Management of psychiatric medications 7. Disposition planning: wants rehab placement 8. Status - This patient requires continued daily supervision on an inpatient psychiatric unit because: Patient manifests major disability in social, occupational, interpersonal or educational functioning that can only be addressed in an acute inpatient setting Patient displays a severe decline in their level of functioning, in several areas (work, family, ADL's, interpersonal), to the degree that they are unable to care for themselves Efforts to manage psychiatric symptoms/behavior at a lower level of care were ineffective and resulted in the need for acute admission. There has been insufficient improvement in ambulatory support measures to safely discharge the patient to a lower level of care. * Avtar Ballard MD - 01/22/2024 1:46 PM CDT [facility]IENT PROGRESS NOTE SUBJECTIVE Chief Complaint: I am ready to go back to sober living Interval History of Present Illness: The medical record reflects the history of present illness as obtained by myself in discussion withthe patient. I reviewed the chart, discussed patient???s care with the treatment team and interviewed the patient. The patient currently endorses or displays the following: maribell says he wants to go back to sober living but sober living is not yet willing to accept him back, he denies any SI/HI, denies psychosis, g feels mood is better.he wants to go back on abilify.he denies drug use but afterI told him about UDS he admitted to use. Adherence to medication: yes Side effects noted or reported: no Staff report: Behavioral disturbance noted or reported: no Participation in therapeutic activities: yes Associated Symptoms: MOOD:appropriate to circumstances. ANHEDONIA: no. APPETITE: normal. SLEEP: Sleep/Rest/Relaxation: appears asleep;no problem identified (01/22/24 0600) Sleep Hours Night (6p-6a): 11.5 (01/22/24 0600) CONCENTRATION: normal. FATIGUE: unaffected. RESTLESSNESS: none. SUICIDAL IDEATION: no. SUICIDAL PLAN: no. SUICIDAL INTENT: no. HOMICIDAL IDEATION: no. HALLUCINATIONS: no. DELUSIONS: no. Family & Social History: [x] No changes from admission [] Changes/additions include: Current Medications: Facility-Administered Medications as of 01/22/2024 Medication Dose Frequency Provider Last Rate Last Admin hydrOXYzine HCL (ATARAX) tablet 50 mg 50 mg every 6 hours PRN Laquita Mcrae MD haloperidol lactate (HALDOL) injection 5 mg 5 mg every 6 hours PRN Laquita Mcrae MD And diphenhydrAMINE (BENADRYL) injection 50 mg 50 mg every 6 hours PRN Laquita Mcrae MD haloperidoL (HALDOL) tablet 5 mg 5 mg every 4 hours PRN Laquita Mcrae MD 5 mg at 01/20/242005 And diphenhydrAMINE (BENADRYL) tablet 50 mg 50 mg every 4 hours PRN Laquita Mcrae MD 50 mg at 01/20/242005 DULoxetine (CYMBALTA) capsule 60 mg 60 mg daily Laquita Mcrae MD 60 mg at 01/22/24918 doxepin (SINEquan) capsule 25 mg 25 mg daily BEDTIME Laquita cMrae MD 25 mg at 01/21/242022 benztropine (COGENTIN) tablet 1 mg 1 mg every 12 hours PRN Laquita Mcrae MD 1 mg at 01/20/241747 Or benztropine (COGENTIN) injection 1 mg 1 mg every 12 hours PRN Laquita Mcrae MD aluminum - magnesium - simethicone (MYLANTA) 200-200-20 mg/5 mL oral suspension 30 mL 30 mL every 6hours PRN Laquita Mcrae MD promethazine (PHENERGAN) tablet 25 mg 25 mg every 4 hours PRN Laquita Mcrae MD polyethylene glycol (MIRALAX) packet 17 Gram 17 Gram every 12 hours PRN Laquita Mcrae MD loperamide (IMODIUM) capsule 2 mg 2 mg every 4 hours PRN Laquita Mcrae MD acetaminophen (TYLENOL) tablet 650 mg 650 mg every 6 hours PRN Laquita Mcrae MD ibuprofen (MOTRIN) tablet 400 mg 400 mg every 6 hours PRN Laquita Mcrae MD pxzudwgjphc-qyyeomxbdrric-oczmqmour alafenam (BIKTARVY) 50-200-25 mg per tablet 1 Tablet 1 Tablet daily Laquita Mcrae MD 1 Tablet at 01/22/24 0919 OBJECTIVE Vital Signs: BP 130/84 (BP Location: Right arm, Patient Position (BP): Sitting) Pulse 73 Temp 97.2 ??F (36.2??C) (Temporal) Resp 16 Ht 6' (1.829 m) Wt 81.6 kg (180 lb) SpO2 99% BMI 24.41 kg/m?? Mental Status Exam: Mental Status Evaluation: Appearance: casually dressed Behavior: cooperative with exam Speech: normal pitch and normal volume Mood: Good Affect: mood-congruent Thought Process: within normal limits Thought Content: appropriate responses to questions asked Sensorium: person, place, and time/date Cognition: grossly intact Insight & Judgement: limited Labs: I have reviewed all labs; pertinent results are noted below. No results found for this or any previous visit (from the past 24 hour(s)). 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 Suicidal ideations 01/17/2024 Assessment & Plan Note: Resolved. Monitor on SP. Hypersomnolence 01/17/2024 Bipolar disorder, current episode depressed, severe 07/12/2023 Assessment & Plan Note: Suboptima control -cymbalta 60 mg AM -resumed abilify 10 mg daily RENEE (generalized anxiety disorder) 06/27/2022 HIV infection 07/31/2019 Plan Supportive therapy, psychoeducation and medication education were provided. Alternative treatment options, risks and benefits were reviewed. Patient agreed with the plan. Further adjustment will be decided based on progress and consent. Safety plan was reviewed; patient???s safety will remain monitored every 15 minutes. Coordination with: [x] Nursing [x] Care management/Social Work [] Ambulatory Physician [] Family/Guardian I discussed with the patient, the severity/complexity of their illness which is medium. 6. Moderate, 1 or more chronic illnesses with exacerbation, progression, or side effects of treatment;, 2 or more stable, chronic illnesses;, and Management of psychiatric medications, homeless 7. Disposition planning: TBD 8. Status - This patient requires continued daily supervision on an inpatient psychiatric unit because: Patient manifests major disability in social, occupational, interpersonal or educational functioning that can only be addressed in an acute inpatient setting Patient displays a severe decline in their level of functioning, in several areas (work, family, ADL's, interpersonal), to the degree that they are unable to care for themselves Efforts to manage psychiatric symptoms/behavior at a lower level of care were ineffective and resulted in the need for acute admission. There has been insufficient improvement in ambulatory support measures to safely discharge the patient to a lower level of care. * Dawson Armenta MD - 01/21/2024 8:27 PM CDT [facility]IENT PROGRESS NOTE Chief Complaint: OK Interval History of Present Illness: The medical record reflects the history of present illness as obtained by myself in discussion withthe patient. I reviewed the chart, discussed patient???s care with the treatment team and interviewed the patient. The patient currently endorses or displays the following: Pt seen in his room. Known to me from previous admission. Says he is doing OK and needs to leave ashis uncle is today. Says he lives in a sober living. Pt was scared and agitated last night due to VH and needed PRN medication. Denies SI/HI or psychosis today. Sleep and appetite is good. Iso lated and withdrawn to his room. Adherence to medication: yes Side effects noted or reported: no Staff report: Behavioral disturbance noted or reported: no Participation in therapeutic activities: no Sleep: Sleep Hours Night (6p-6a): 8 (01/21/24599) Sleep/Rest/Relaxation: no problem identified;appears asleep (01/21/24599) Family & Social History: [x] No changes from admission [] Changes/additions include: Current Medications: Facility-Administered Medications as of 01/21/2024 Medication Dose Frequency Provider Last Rate Last Admin hydrOXYzine HCL (ATARAX) tablet 50 mg 50 mg every 6 hours PRN Laquita Mcrae MD haloperidol lactate (HALDOL) injection 5 mg 5 mg every 6 hours PRN Laquita Mcrae MD And diphenhydrAMINE (BENADRYL) injection 50 mg 50 mg every 6 hours PRN Laquita Mcrae MD haloperidoL (HALDOL) tablet 5 mg 5 mg every 4 hours PRN Laquita Mcrae MD 5 mg at 01/20/242005 And diphenhydrAMINE (BENADRYL) tablet 50 mg 50 mg every 4 hours PRN Laquita Mcrae MD 50 mg at 01/20/242005 DULoxetine (CYMBALTA) capsule 60 mg 60 mg daily Laquita Mcrae MD 60 mg at 01/21/24851 doxepin (SINEquan) capsule 25 mg 25 mg daily BEDTIME Laquita Mcrae MD 25 mg at 01/21/242022 benztropine (COGENTIN) tablet 1 mg 1 mg every 12 hours PRN Laquita Mcrae MD 1 mg at 01/20/241747 Or benztropine (COGENTIN) injection 1 mg 1 mg every 12 hours PRN Laquita Mcrae MD aluminum - magnesium - simethicone (MYLANTA) 200-200-20 mg/5 mL oral suspension 30 mL 30 mL every 6hours PRN Laquita Mcrae MD promethazine (PHENERGAN) tablet 25 mg 25 mg every 4 hours PRN Laquita Mcrae MD polyethylene glycol (MIRALAX) packet 17 Gram 17 Gram every 12 hours PRN Laquita Mcrae MD loperamide (IMODIUM) capsule 2 mg 2 mg every 4 hours PRN Laqiuta Mcrae MD acetaminophen (TYLENOL) tablet 650 mg 650 mg every 6 hours PRN Laquita Mcrae MD ibuprofen (MOTRIN) tablet 400 mg 400 mg every 6 hours PRN Laquita Mcrae MD owcjkurztmo-zlvwbwjeghxwb-oqhbzilpa alafenam (BIKTARVY) 50-200-25 mg per tablet 1 Tablet 1 Tablet daily Laquita Mcrae MD 1 Tablet at 01/21/24 0852 Vital Signs: BP 133/80 (BP Location: Left arm, Patient Position (BP): Supine) Pulse (!) 58 Temp 98.9 ??F (37.2 ??C) (Temporal) Resp 16 Ht 6' (1.829 m) Wt 81.6 kg (180 lb) SpO2 98% BMI 24.41 kg/m?? CIWA No data found in the last 10 encounters. Mental Status Exam: General Appearance: appearing stated age, poor hygiene and grooming Orientation: awake and alert, oriented to person, place and time Behavior: semi cooperative Psychomotor: no agitation or retardation Attitude: guarded Eye Contact: fair Speech: normal rate/rhythm/volume/prosody Language: fluent, free of aphasia and paraphasic errors Thought Process: linear and goal directed Thought Content: denied thoughts of self-harm or violence toward others; no delusions verbalized Perception: denied auditory or visual hallucinations; no obvious reaction to internal stimuli Associations: intact Mood: anxious Affect: mood congruent Suicidal thoughts/plan: denies Homicidal thoughts/plan: denies Insight: poor Judgment: poor Attention/Concentration: focused and able to attend to conversation Memory: grossly intact Labs: I have reviewed all labs; pertinent results are noted below. No results found for this or any previous visit (from the past 24 hour(s)). Assessment and Plan Primary Problem: Bipolar disorder, current episode depressed, severe Active Hospital Problems Diagnosis Date Noted Methamphetamine abuse 01/18/2024 Suicidal ideations 01/17/2024 Routine general medical examination at a health care facility 01/17/2024 Hypersomnolence 01/17/2024 Bipolar disorder, current episode depressed, severe 07/12/2023 Major depressive disorder, recurrent episode, moderate 06/27/2022 RENEE (generalized anxiety disorder) 06/27/2022 HIV infection 07/31/2019 SW to call sober living to check if pt can return there or not. The treatment options and alternatives, including medications and their side effects, were reviewedwith patient who verbally agreed/consented with the care plan. Supportive therapy, psychoeducation and medication education were provided. Alternative treatment options, risks and benefits were reviewed. Patient agreed with the plan. Further adjustment will be decided based on progress and consent. Safety plan was reviewed; patient???s safety will remain monitored every 15 minutes. Coordination with: [x] Nursing [x] Care management/Social Work [] Ambulatory Physician [] Family/Guardian I discussed with the patient, the severity/complexity of their illness which is medium. Disposition planning: unknown Status - This patient requires continued daily supervision on an inpatient psychiatric unit because: Patient manifests major disability in social, occupational, interpersonal or educational functioning that can only be addressed in an acute inpatient setting Patient is, or will imminently become, seriously compromised because of their mental disorder. Theyshow continued behavior intolerable to patient or society. Patient displays a severe decline in their level of functioning, in several areas (work, family, ADL's, interpersonal), to the degree that they are unable to care for themselves * Donn Gage - 01/21/2024 2:04 PM CDT Sales Branch Manager encountered pt whiles rounding. 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 Sales Branch Manager provided words of encouragement and assured pt of her continued availability and support. Rev. Donn Gage MDiv Sales Branch Manager [address] [address] *12/02 [facility] [phone] * Laquita Mcrae MD - 01/20/2024 8:32 AM CDT [facility] PROGRESS NOTE This note was generated with [employer] voice recognition software and may contain unintended site promotion agent errors. PATIENT: Maribell Chase Jr. AGE: 28 y.o. Date of : 1995 Admit date: 01/17/2024 ASSESSMENT DIAGNOSIS: Bipolar disorder, current episode depressed, severe Principal Problem: Bipolar disorder, current episode depressed, severe Active Problems: HIV infection Major depressive disorder, recurrent episode, moderate RENEE (generalized anxiety disorder) Suicidal ideations Routine general medical examination at a health care facility Hypersomnolence Methamphetamine abuse Additional Problems: Past Medical History: Diagnosis Date History of HIV infection Active Hospital Problems Diagnosis Date Noted Methamphetamine abuse 01/18/2024 Suicidal ideations 01/17/2024 Routine general medical examination at a [facility] care facility 01/17/2024 Hypersomnolence 01/17/2024 Bipolar disorder, current episode depressed, severe 07/12/2023 Major depressive disorder, recurrent episode, moderate 06/27/2022 RENEE (generalized anxiety disorder) 06/27/2022 HIV infection 07/31/2019 Medication plan: Continue current psych medications. SUBJECTIVE Chief Complaint: I am doing better. Interval History of Present Illness: The medical record reflects the history of present illness as obtained by myself in discussion withthe patient. I reviewed the chart, discussed patient???s care with the treatment team and interviewed the patient. The patient currently endorses or displays the following: Patient is isolated and withdrawn. He has a very bad body odor. He would not shower himself. He reported better mood, no significant depression or anxiety, no suicidal homicidal ideation. He reported mild anxiety, no panic feeling. Pt denied auditory or visual hallucination. No sign of responding to internal stimuli. Did not exhibit paranoia or delusion. No agitation or aggression. Fair sleep and appetite. Adherence to medication: yes Side effects noted or reported: no Staff report: Behavioral disturbance noted or reported: no Participation in therapeutic activities: no Sleep: Sleep Hours Night (6p-6a): 8.5 (01/20/24599) Sleep/Rest/Relaxation: sleep interrupted (01/20/24599) Family & Social History: [x] No changes from admission [] Changes/additions include: Current Medications: Facility-Administered Medications as of 01/20/2024 Medication Dose Frequency Provider Last Rate Last Admin hydrOXYzine HCL (ATARAX) tablet 50 mg 50 mg every 6 hours PRN Laquita Mcrae MD haloperidol lactate (HALDOL) injection 5 mg 5 mg every 6 hours PRN Laquita Mcrae MD And diphenhydrAMINE (BENADRYL) injection 50 mg 50 mg every 6 hours PRN Laquita Mcrae MD haloperidoL (HALDOL) tablet 5 mg 5 mg every 4 hours PRN Laquita Mcrae MD And diphenhydrAMINE (BENADRYL) tablet 50 mg 50 mg every 4 hours PRN Laquita Mcrae MD DULoxetine (CYMBALTA) capsule 60 mg 60 mg daily Laquita Mcrae MD 60 mg at 01/19/24 0921 doxepin (SINEquan) capsule 25 mg 25 mg daily BEDTIME Laquita Mcrae MD 25 mg at 01/19/242100 benztropine (COGENTIN) tablet 1 mg 1 mg every 12 hours PRN Laquita Mcrae MD Or benztropine (COGENTIN) injection 1 mg 1 mg every 12 hours PRN Laquita Mcrae MD aluminum - magnesium - simethicone (MYLANTA) 200-200-20 mg/5 mL oral suspension 30 mL 30 mL every 6hours PRN Laquita Mcrae MD promethazine (PHENERGAN) tablet 25 mg 25 mg every 4 hours PRN Laquita Mcrae MD polyethylene glycol (MIRALAX) packet 17 Gram 17 Gram every 12 hours PRN Laquita Mcrae MD loperamide (IMODIUM) capsule 2 mg 2 mg every 4 hours PRN Laquita Mcrae MD acetaminophen (TYLENOL) tablet 650 mg 650 mg every 6 hours PRN Laquita Mcrae MD ibuprofen (MOTRIN) tablet 400 mg 400 mg every 6 hours PRN Laquita Mcrae MD ryysyteemqy-lpmflgvoaueiq-myjpgpkof alafenam (BIKTARVY) 50-200-25 mg per tablet 1 Tablet 1 Tablet daily Laquita Mcrae MD 1 Tablet at 01/19/24 0841 Review of Systems: Constitutional: No fever or chills HENT: No congestion, sore throat or rhinorrhea Eyes: No visual disturbance Respiratory: No cough or shortness of breath Cardiovascular: No chest pain or palpitations Gastrointestinal: No nausea, vomiting, abdominal pain or diarrhea Genitourinary: No dysuria or hematuria Musculoskeletal: No myalgias or back pain Skin: No rash or wound Neurological: No weakness or tremors OBJECTIVE Vital Signs: BP 114/60 Pulse (!) 56 Temp 96.8 ??F (36 ??C) (Temporal) Resp 18 Ht 6' (1.829 m) Wt 81.6 kg (180 lb) SpO2 97% BMI 24.41 kg/m?? CIWAA-AR less than 10 no medication CIWAA-Ar 10-14 Administer librium 25 mg po,reassess in 2 hours CIWA-Ar 15-19 Administer librium 50 mg po, reassess in 2 hours CIWA-Ar 20 or above and patient weighs over 125lbs, administer librium 100mg po, reassess in two hours CIWA-Ar 20 or above and patient weighs less than 125 lbs. Administer librium 50 mg po, reassess in two hours If CIWA-AR remains >20 for two consecutive assessments, call physician for orders for medicationto control breakthrough symptoms. Mental Status Exam: General Appearance: appearing stated age, marginal hygiene and grooming Orientation: awake and alert, oriented to self place, date and partially to the situation Behavior: Partially cooperative Psychomotor: no agitation or retardation. Mood irritable. Attitude: cooperative Eye Contact: Fair or reduced. Speech: normal rate/rhythm/volume/prosody. Language: fluent, free of aphasia and paraphasic errors. Fairly organized. Thought Process: Poorly organized. Grossly goal-directed. Thought Content: denied thoughts of self-harm or violence toward others; no delusions verbalized. Suicidal ideation: No Homicidal ideation: No Perception: denied auditory or visual hallucinations; no obvious reaction to internal stimuli Associations: Limited. Mood: Mildly depressed. Affect: mood congruent. In constricted range. Insight: Limited. Judgment: Limited . Attention/Concentration: poor Memory: Fair short-term and long-term memory. Fund of Knowledge: average. Muscle strength and tone: Fair Gait: normal Labs: I have reviewed all labs; pertinent results are noted below. No results found for this or any previous visit (from the past 24 hour(s)). Assessment and Plan The treatment options and alternatives, including medications and their side effects, were reviewedwith patient who verbally agreed/consented with the care plan. Supportive therapy, psychoeducation and medication education were provided. Alternative treatment options, risks and benefits were reviewed. Patient agreed with the plan. Further adjustment will be decided based on progress and consent. Safety plan was reviewed; patient???s safety will remain monitored every 15 minutes. Coordination with: [x] Nursing [x] Care management/Social Work [] Ambulatory Physician [] Family/Guardian I discussed with the patient, the severity/complexity of their illness which is medium. Disposition planning: Patient would like to be discharged back to the sober living facility when heis getting stable. Status - This patient requires continued daily supervision on an inpatient psychiatric unit because: Patient manifests major disability in social, occupational, interpersonal or educational functioning that can only be addressed in an acute inpatient setting Patient displayed a recent history of significant risk-taking behavior and poor impulse control, resulting in a high risk to self or others if not maintained in the inpatient setting Patient is, or will imminently become, seriously compromised because of their mental disorder. Theyshow continued behavior intolerable to patient or society. Patient displays a severe decline in their level of functioning, in several areas (work, family, ADL's, interpersonal), to the degree that they are unable to care for themselves Patient requires 24/7 medical and nursing monitoring to adjust dosage of psychotropic medications which could not safely be conducted outside of an inpatient psychiatric unit Efforts to manage psychiatric symptoms/behavior at a lower level of care were ineffective and resulted in the need for acute admission. There has been insufficient improvement in ambulatory support measures to safely discharge the patient to a lower level of care. * Chas Guallpa DO - 01/18/2024 10:03 AM CDT [facility] Adult Hospitalist Progress Note Admit Date: 01/17/2024 Date of Note: 01/18/2024, 10:04 AM LOS: 1 day ASSESSMENT AND PLAN: Principal Problem: Suicidal ideations Active Problems: HIV infection Major depressive disorder, recurrent episode, moderate RENEE (generalized anxiety disorder) Bipolar disorder, current episode depressed, severe Routine general medical examination at a health care facility Hypersomnolence Methamphetamine abuse Impression/plan 1. Suicidal ideation/depression/anxiety/bipolar disorder-patient will continue on suicide precautions. Patient will be admitted to behavioral health unit. Patient will be placed on psychiatric medication per psychiatrist recommendation. 2. Hypersomnolence-urine drug screen was positive for methamphetamine. CT of head without contrast did not show any acute intracranial abnormality. Venous blood gas did not show any evidence of CO2 retention. Labs were stable. Serum ammonia and lactic acid levels were normal. TSH was normal. Patient's hypersomnolence is likely secondary to methamphetamine abuse. 3. HIV infection-it appears from recent admission that patient is supposed to be on Biktarvy 50-200-25 mg 1 tablet p.o. daily. This medication has been ordered. Nutrition: Current Diet and/or Nutritional Supplementation ordered: DIET GENERAL Safe Tray: Safe Tray Effective Now Quality/Safety/Core Measures/Disposition Planning: Campos catheter:absent Current Code Status -Prior Plan discussed with patient, questions answered. Estimated Discharge Day: Current Planned Disposition - Dispo: Psychiatric hospital SUBJECTIVE: Patient was seen and evaluated at the bedside this morning. Patient was sleeping however he was easily arousable to verbal stimuli. Patient admits that he has been suicidal. Patient denies any chest pain, shortness of breath or abdominal pain. ROS: History obtained from patient Constitutional: Patient has been afebrile Pulmonary: Denies shortness of breath Cardiovascular: Denies chest pain GI: Denies abdominal pain, nausea or vomiting Objective BP 121/78 (BP Location: Left arm, Patient Position (BP): Supine) Pulse (!) 53 Temp 97.8 ??F (36.6 ??C) (Oral) Resp 16 Ht 6' (1.829 m) Wt 81.6 kg (180 lb) SpO2 97% BMI 24.41 kg/m?? Temp (24hrs), Av.4 ??F (36.9 ??C), Min:97.8 ??F (36.6 ??C), Max:98.9 ??F (37.2 ??C) EXAM: General: alert, in no distress Neurologic: Grossly normal HEENT: atraumatic, Normocephalic, without obvious abnormality Lungs: clear to auscultation bilaterally, normal respiratory effort Heart: Bradycardia, regular rhythm, normal S1, S2, no murmurs, rubs, clicks or gallops Abdomen: Soft, non-tender. Bowel sounds normal. No masses, no organomegaly. Extremities: no cyanosis or edema LABORATORY: Recent Labs 01/17/24 1637 WBC 3.2* HGB 14.0 HCT 45.0 PLT 297 Recent Labs 01/17/24 1637 NA 134* K 3.8 CL 100 CO2 23 CA 9.1 BUN 12 CREAT 0.89 GLUCOSE 92 Recent Labs 01/17/24 1637 TOTALPROTEIN 7.8 ALBUMIN 3.9 BILITOTAL 0.5 ALKPHOS 74 AST 21 ALT 15 Diagnostic testing reviewed by me: Medications reviewed by me Chas Guallpa DO Please contact me via [employer] Secure Chat from 7am-7pm After hours please place E-ticket to [facility] This documentation was written in part with the use of Twingly speech to text software. Effort has been done to assure accuracy of site promotion agent. Any errors in spelling, syntax, or meaningshould be interpreted in the context of the broader note. Any obvious errors or omissions should beclarified with the author of the document. documented in this encounter H&P Notes * Laquita Mcrae MD - 01/19/2024 7:59 AM CDT [facility] ADMISSION NOTE This note was generated with [employer] voice recognition software and may contain unintended site promotion agent errors. PATIENT: Maribell Chase Jr. AGE: 28 y.o. Date of : 1995 Admit date: 01/17/2024 Reason for admission: Patient reported worsening depression and suicidal ideation. ASSESSMENT DIAGNOSIS: Primary diagnosis: Bipolar disorder, current episode depressed, severe Principal Problem: Bipolar disorder, current episode depressed, severe Active Problems: HIV infection Major depressive disorder, recurrent episode, moderate RENEE (generalized anxiety disorder) Suicidal ideations Routine general medical examination at a health care facility Hypersomnolence Methamphetamine abuse Additional Problems: Past Medical History: Diagnosis Date History of HIV infection SUBJECTIVE CHIEF COMPLAINT: I am getting better today. HISTORY OF PRESENT ILLNESS: The medical record reflects the history of present illness as obtained by myself in discussion with the patient. The patient is a 28 y.o., male who was admitted to [facility] psychiatric unit Voluntary. I reviewed the Behavioral Health intake assessment completed prior to this admission, interviewed the patient, and verified the information. Additional sourcesof information included: Review of medical record, discussions with treatment team. Collateral information from family member. Patient reported to intake counselor: Suicidal (01/17/2024 11:48 AM) Major stressors: Other (comment) (substance use) (01/17/2024 11:48 AM) I have interviewed the pt, reviewed the notes from intake assessment and verified with patient. Perpsychiatric intake note: This patient is a 28 yr old Male who presents to the ED via private vehicle, unaccompanied during this assessment. Pt presents as Drowsy & Ox4, uncooperative, with logical thought process, and flat affect. Pt presents due to feeling suicidal Pt was minimally able to participate in assessment due to drowsiness. Per chart review, pt told Dr. Menon that he has not slept in 4 days which has happened before with his bipolar and endorsed SI with a plan to overdose onmethamphetamines. Per chart review, pt has a history of dx HIV, MDD, RENEE, Bipolar disorder, polysubstance use disorder. Per chart review, pt has history of IPBH last at [facility] 01/01/2024-01/07/2024. Pt endorses having psychiatric providers at [facility] . Per chart review, pt has hx of SA. Pt endorses SI. Per chart review, pt endorses a hx of substance abuse. Per consulting with Psychiatrist Dr. Rodriguez, this patient meets criteria for IPBH. Pt is voluntary, and can be made involuntary if needed. (Affidavit on file). Pt is willing to transfer to [facility] or [place]. Pt denies medical devices. Pt denies codeword. Collateral Information reports: Sarah Lewis - Pt's mother reports I didn't know he was at the hospital. He just left [facility] a couple weeks ago. I thought he was going to another facility after that. I don't really know what to believe anymore. He does what he wants. He expressed suicidal ideation last when he was going to [facility] last time. I haven't talked to him in a couple weeks. Pt's mother reports that he does not live with her, and she believes that he may be homeless. Pt's mother states I have concerns for her safety because of both the drugs and the suicidalideation. He really needs help. Affidavit written by Dr. 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 Patient states he has not slept in 4 days which has happened before with his bipolar. He states he is feeling more depressed and is feeling suicidal with a plan to overdose on methamphetamine. He denies having done anything to harm himself up until now. The patient presented with: Currently patient is isolated and withdrawn. He reported that he came from a sober living facility. He has been using methamphetamine by smoking in the past 4 days. He hasbeen feeling more depressed and stressful, but today he is feeling better. He denied active hopelessness, denied suicidal ideation. He reported everything is improving, he denied active auditory or visual hallucination, denied paranoid feeling. No delusional statement. He reported that he has been using methamphetamine by smoking in the past 4 days. He denied a significant psychological trauma history. Depressive Symptoms: [] No significant depression [x] Low mood [x] Loss of interest [] Irritability [] Crying [] Decreased energy [] Poor self-care [] Isolation [x] Impaired concentration [x] Feelings of helplessness [] Feelings of worthlessness [] Feelings of guilt [x] Feelings of hopelessness Anxiety Symptoms: [] No significant anxiety. [x] Excessive worry [] Social anxiety [] Panic attacks [] Obsessions [] Compulsions [] Shortness of breath (SOB) [] Palpitations [] Sweating [] Dizziness [] Fear of losing control [] Fear of dying Manic Symptoms: [x] No manic symptoms. [] Elevated mood [] Irritability [] Hyper-talkative [] Distractibility [] Increase goal directed activity [] Engage in risky behavior [] Grandiosity Psychotic Symptoms: [x] No psychosis [] Hallucinations [] Delusions [] Paranoia [] Disorganized behavior Symptoms of Trauma: [x]Denied psychological trauma. 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 [] Increased sleep [] Decreased need for sleep [] Nightmares Eating Patterns: [x]Fair appetite [] Decreased appetite [] Weight loss [] Increased appetite [] Weight gain [] Eating disorder PAST PSYCHIATRIC HISTORY: Psychiatric Treatment Previous psychiatric diagnosis: Yes (01/17/241118) Describe previous diagnosis: Depression, Anxiety, Bipolar, Polysubstance abuse (01/17/241118) Inpatient psychiatric hospitalization: Yes (01/17/241118) Was it a [facility] in past 7 days: No (01/17/241118) When: 01/01/2024-01/07/2024 (01/17/241118) Where: [facility] (01/17/241118) Diagnosis: MDD, RENEE, Meth use disorder, insomnia (01/17/241118) Treatment: [facility] (01/17/241118) Currently receiving treatment: Yes (01/17/241118) Current Psychiatrist : Pt reports he sees a psychiatrist through [facility]. (01/17/241118) Current Therapist: (YURIDIA due to pt drowsiness) (01/17/241118) Compliant with treatment: Yes (01/17/241118) Last appointment: last week (01/17/241118) Hopeless or dissatisfied with treatment: No (01/17/241118) Have you ever in your lifetime made a suicide attempt? (Lifetime): (YURIDIA due to pt's drowsiness) (01/17/24 1151) Previous medication trials: He reported Cymbalta, doxepin and hydroxyzine helped him. Primary Care Provider: No primary care provider on file. SUBSTANCE USE HISTORY: Substances Substances: (YURIDIA due to pt's drowsiness) (01/17/24 1153) Any family history of substance abuse problems?: (YURIDIA due to pt's drowsiness) (01/17/24 1153) Other Addictive Behaviors Other Addictive Behavior: (YURIDIA due to pt's drowsiness) (01/17/24 1153) Problems Due to Substance Use/Addictive Behavior Problems Due to Chemical Use/Addictive Behavior: (YURIDIA due to pt's drowsiness) (01/17/24 1153) Reviewed and updated this visit by provider: No current facility-administered medications on file prior to encounter. Current Outpatient Medications on File Prior to Encounter Medication Sig Dispense Refill ARIPiprazole (ABILIFY) 5 mg tablet Take 5 mg by mouth daily. doxepin (SINEquan) 25 mg capsule Take 25 mg by mouth see administration instructions. sertraline (ZOLOFT) 100 mg tablet Take 100 mg by mouth daily. traZODone (DESYREL) 50 mg tablet Take 50 mg by mouth daily at bedtime. DULoxetine (CYMBALTA) 60 mg Capsule, Delayed Release(E.C.) Take 1 Capsule (60 mg) by mouth daily. 30 Capsule 0 hydrOXYzine HCL (ATARAX) 50 mg tablet Take 1 Tablet (50 mg) by mouth every 6 hours as needed for Anxiety. 45 Tablet 0 udscuvmksoh-exwqugktbuwuz-rnltovdqq alafenam (Biktarvy) 50-200-25 mg Tablet Take 1 Tablet by mouth daily. 30 Tablet 0 No Known Allergies Past Medical History: Diagnosis Date History of HIV infection Past Surgical History: Procedure Laterality Date PT DENIES RELEVANT SURGICAL HISTORY FAMILY & SOCIAL HISTORY: Psychosocial Assessment Living Situation/Arrangements Current Living Situation: Other (Comment) (YURIDIA due to pt's drowsiness) (01/17/24 1152) Living Arrangements: Other (Comment) (YURIDIA due to pt's drowsiness) (01/17/24 1152) Employment Employment Status: (YURIDIA due to pt's drowsiness) (01/17/24 1152) School School Status: (YURIDIA due to pt's drowsiness) (01/17/24 1152) Bullying Are you being bullied or bullying others: (YURIDIA due to pt's drowsiness) (01/17/24 1152) Abuse/Trauma Assessment Abuse/Trauma Abuse/Trauma: Unable to obtain (01/17/24 1153) Please describe unable to obtain or declined: YURIDIA due to pt's drowsiness (01/17/24 1153) Legal Concerns Legal Concerns Recent Legal Concerns: (YURIDIA due to pt's drowsiness) (01/17/24 1154) Family Hx of Mental Illness/Substance Use Family History of Mental Illness/Substance Use Family history of mental illness/substance use: (YURIDAI due to pt's drowsiness) (01/17/24 1152) Family history of suicide attempt: (YURIDIA due to pt's drowsiness) (01/17/24 1152) Family history of a completed suicide: (YURIDIA due to pt's drowsiness) (01/17/24 1152) REVIEW OF SYSTEMS: Constitutional: No fever or chills HENT: No congestion, sore throat or rhinorrhea Eyes: No visual disturbance Respiratory: No cough or shortness of breath Cardiovascular: No chest pain or palpitations Gastrointestinal: No nausea, vomiting, abdominal pain or diarrhea Genitourinary: No dysuria or hematuria Musculoskeletal: No myalgias or back pain Skin: No rash or wound Neurological: No weakness or tremors OBJECTIVE PHYSICAL EXAM: Appearance: Well-appearing, no pain distress, well-nourished, HEENT: Normocephalic, atraumatic, EOMI, PERRLA. Multiple dental caries Neck: Supple, full range of motion. No lymphadenopathy, no JVD or thyromegaly. Cardiovascular: s1,s2 Regular rate and rhythm without murmurs, rubs or clicks. Pulmonary: normal breathing sound. GI / : Abdomen soft, nontender, nondistended. Bowel sounds normoactive. Negative hepatosplenomegaly. Extremities: No clubbing, cyanosis or edema. Dorsalis pedis pulses palpable bilaterally. MS: Strength / ROM intact, no calf tenderness Skin: Warm and dry, color normal Neurologic: Alert and oriented times 3. Cranial nerves 2-12 are intact. No focal deficits. II: pupils equal, round, reactive to accommodation III,VII: ptosis not present III,IV,: extraocular muscles Intact V: mastication normal V: facial light touch sensation normal bilaterally VII: facial muscle function - upper and lower normal bilat VIII: hearing seems preserved IX: soft palate elevation normal bilaterally XI: trapezius strength normal bilat XI: sternocleidomastoid strength normal bilat XII: tongue strength normal VITAL SIGNS: BP 135/72 Pulse 60 Temp 97.2 ??F (36.2 ??C) (Temporal) Resp 16 Ht 6' (1.829 m) Wt 81.6 kg(180 lb) SpO2 97% BMI 24.41 kg/m?? LABS ON ADMISSION: Results for orders placed or performed during the hospital encounter of 01/17/24 (from the past 24 hour(s)) CBC WITH DIFFERENTIAL Result Value Ref Range WBC 6.0 4.0 - 9.8 K/uL RBC 4.98 4.50 - 5.40 M/uL HEMOGLOBIN 14.4 13.6 - 16.5 g/dL HEMATOCRIT 45.2 40.0 - 48.0 % MCV 90.8 82.0 - 99.0 fL MCH 28.9 27.2 - 32.6 pg MCHC 31.9 31.5 - 35.5 g/dL RDW 15.5 (H) 11.5 - 14.5 % RDW-STDEV 50.6 (H) 37.1 - 48.7 fL PLATELETS 174 140 - 350 K/uL MPV 12.4 9.3 - 12.4 fL NEUTROPHILS 49 % LYMPHOCYTES 36 % MONOCYTES 12 % EOSINOPHILS 3 % BASOPHILS 0 % IMMATURE GRANULOCYTES 0 % NEUTROPHIL ABSOLUTE 2.93 1.90 - 7.00 K/uL LYMPHOCYTE ABSOLUTE 2.18 0.70 - 4.50 K/uL MONOCYTE ABSOLUTE 0.69 0.10 - 1.30 K/uL EOSINOPHIL ABSOLUTE 0.17 0.00 - 0.70 K/uL BASOPHILS ABSOLUTE 0.02 0.00 - 0.20 K/uL IMMATURE GRANULOCYTES ABSOLUTE 0.02 0.00 - 0.03 K/uL COMPREHENSIVE METABOLIC PANEL Result Value Ref Range SODIUM 136 136 - 145 mmol/L POTASSIUM 4.1 3.5 - 5.0 mmol/L CHLORIDE 100 98 - 107 mmol/L CO2 25 22 - 29 mmol/L CALCIUM 10.1 8.6 - 10.2 mg/dL BUN 17 6 - 20 mg/dL CREATININE 0.81 0.67 - 1.17 mg/dL GLUCOSE 80 74 - 99 mg/dL TOTAL PROTEIN 8.0 6.7 - 8.6 g/dL ALBUMIN 4.4 3.5 - 5.2 g/dL BILIRUBIN TOTAL 0.4 0.3 - 1.2 mg/dL ALKALINE PHOSPHATASE 81 40 - 129 U/L AST 35 <41 U/L ALT 18 <42 U/L GFR >60 >=60 mL/min/1.73 sq meter ANION GAP 11 8 - 16 mmol/L CT HEAD WO CONTRAST Result Date: 01/17/2024 CT HEAD WITHOUT CONTRAST WITH REFORMATTED IMAGES DATE: 01/17/2024 7:20 PM HISTORY: Mental status change, unknown cause. Severe episode of recurrent major depressive disorder, without psychotic features; Bipolar affective disorder, remission status unspecified COMPARISON: 08/11/2019 TECHNIQUE: Helicalwith reformats. The examination was performed with the adjustment of mA according to the patient size and/or the use of Iterative Reconstruction Technique. Please note that CT is inherently less sensitive than MRI for the evaluation of most intracranial pathology. BRAIN FINDINGS: VENTRICLES: Ventricles are within normal limits. MIDLINE: No midline shift. PARENCHYMA: No territorial loss of hobbs-whi te matter differentiation or mass effect. No hyperdense parenchymal hemorrhage. EXTRA-AXIAL SPACE: No hyperdense hemorrhage. Patent cisterns. CALVARIUM: Intact calvarium. SINUSES: Normal aeration of paranasal sinuses and mastoid air cells. VASCULAR: No atherosclerotic changes ADDITIONAL: None IMPRESSION: 1. No acute intracranial abnormality on noncontrast CT. DICTATION LOCATION: Location 4 XR ANKLE 3+ VW RIGHT Result Date: 01/03/2024 EXAMINATION: XR ANKLE 3+ VW RIGHT DATE: 01/03/2024 4:35 PM HISTORY: Pain; Severe recurrent major depression without psychotic features COMPARISON: 07/11/2023 FINDINGS/IMPRESSION: There is a nondisplaced fifth metatarsal base fracture without dislocation. DICTATION LOCATION: Location [address] [place] [address] MENTAL STATUS EXAM: General Appearance: appearing stated age, fair hygiene and grooming Orientation: awake and alert, oriented to person, place and time Behavior: cooperative Psychomotor: no agitation or retardation Attitude: cooperative Eye Contact: Fair Speech: normal rate/rhythm/volume/prosody Language: fluent, free of aphasia and paraphasic errors Thought Process: linear and goal directed Thought Content: Negative for thoughts. No delusions verbalized Suicidal ideation: No suicidal ideation or plan. Homicidal ideation: No homicidal ideation or plan. Perception: denied auditory or visual hallucinations; no obvious reaction to internal stimuli Associations: intact Mood: Depressed. Affect: mood congruent. In constricted range. Not reactive. Insight: Limited Judgment: Limited. Attention/Concentration: focused and able to attend to conversation Memory: grossly intact Fund of Knowledge: average Muscle strength and tone: normal Gait: normal Patient Strengths Cognitively Intact, Able to Express Needs, Good Intellectual Ability, [place] in ADL's, and Good Physical Health Patient Liabilities Substance Use Issues, Socially Isolated, and Limited Coping Skills Plan PLAN OF CARE: The treatment options and alternatives, including medications and their side effects, were reviewedwith patient who verbally agreed/consented with the care plan. Admit to psychiatric unit under my service. Medical consultation with hospitalist to manage medical comorbidities, if indicated. Close observations for safety, including suicidal behaviors; patient's risk factors for suicide including the accessibility to lethal means, intent, history of suicide attempt, psychiatric comorbidity, medical conditions, family and social support systems were reviewed, and the patient???s safety plan was discussed. The treatment team will develop a comprehensive plan, including both pharmacological and psychological approaches, as well as after-care plans. Social Work consult to establish outpatient psychiatric and medical follow-up care. Engage the patient in the therapeutic milieu of the unit including groups and activities. Psychoeducation regarding diagnosis and treatment was provided. Medication education, including the importance of compliance, was provided. Supportive psychotherapy/motivational engagement was provided to foster recovery-oriented goals. I discussed with the patient the severity/complexity of their illness, which is high. I Do not have concerns that this patient will be unable to work within the next 12 months. Medication management: Resume his [employer] psychiatric medications Cymbalta 60 mg daily for depression and anxiety Doxepin 25 mg nightly for insomnia Haldol 5 mg and Benadryl 50 mg p.o. or IM every 4 hours as needed for agitation. Cogentin 1 mg p.o. or IM twice per day as needed for extrapyramidal syndrome (EPS). Hydroxyzine 50 mg every 6 hours as needed for anxiety. Trazodone 100 mg nightly as needed for insomnia. Facility-Administered Medications as of 01/19/2024 Medication Dose Frequency Provider Last Rate Last Admin traZODone (DESYREL) tablet 100 mg 100 mg at bedtime PRN Laquita Mcrae MD benztropine (COGENTIN) tablet 1 mg 1 mg every 12 hours PRN Laquita Mcrae MD Or benztropine (COGENTIN) injection 1 mg 1 mg every 12 hours PRN Laquita Mcrae MD aluminum - magnesium - simethicone (MYLANTA) 200-200-20 mg/5 mL oral suspension 30 mL 30 mL every 6hours PRN Laquita Mcrae MD promethazine (PHENERGAN) tablet 25 mg 25 mg every 4 hours PRN Laquita Mcrae MD polyethylene glycol (MIRALAX) packet 17 Gram 17 Gram every 12 hours PRN Laquita Mcrae MD loperamide (IMODIUM) capsule 2 mg 2 mg every 4 hours PRN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 ECG No previous ECG available for comparison Electronically Signed On 01-01-2024 15:07:05 CDT by Peter Park Mental Status Exam Appearance: appropriately dressed, appears stated age, limited hygiene and grooming Attitude: calm and semi cooperative, drowsy Eye Contact: poor-fair Speech: delayed Psychomotor: No agitation or retardation Affect: constricted Mood: depressed Thought Process: concrete Associations: No loosening Thought Content: +SI. Denies thoughts of violence toward others; no evidence of obsessions or delusions present Hallucinations: Denies auditory and visual hallucinations, not observed responding to internal stimuli Attention/Concentration: Alert but drowsy. oriented to person, place, and month/year; semi able to attend to conversation Memory: Grossly intact Language: Fluent without aphasic or paraphasic errors Insight/Judgement: limited/limited Fund of Knowledge: Appropriate for educational level Assessment and Plan Diagnosis Bipolar disorder current episode mixed severe without psychosis Methamphetamine use Recommendations Medication plan: No MARKING STITCHER psychiatric medications to resume as he had been non- adherent. Hold on starting medication at this time due to drowsiness. Defer to inpatient BH. Supportive therapy, psychoeducation, and medication education were provided. Alternative treatment options, risks and benefits were reviewed. Reinforced medication compliance. Patient agreed with theplan. Further adjustment will be decided based on progress and consent. Safety plan was reviewed. Disposition planning: Admit to inpatient behavioral health unit due to risk of harm to self. Pt information, assessment, plan discussed with Dr. Rodriguez. Daysi Blanca DNP Cosigned by Rahel Rodriguez MD at 01/18/2024 1:16 PM CDT documented in this encounter ED Notes * Yi Garrido - 01/18/2024 7:27 AM CDT Meal tray delivered. * Caitlyn Arriaga RN - 01/18/2024 7:17 AM CDT Report received from VICTOR MANUEL Arrieta. Care has been consumed at this time. Patient remains resting on psych safe bed. Q15 minute safety rounding remains in place. I will continue to monitor. * Sandy Melissa RN - 01/18/2024 6:59 AM CDT Pt sleeping soundly in bed. RR even and unlabored. Will continue to assess. 15 minute rounding remains in place. * Sandy Melissa RN - 01/18/2024 5:24 AM CDT Pt sleeping soundly in bed. RR even and unlabored. Will continue to assess. 15 minute rounding remains in place. * Sandy Melissa RN - 01/18/2024 4:31 AM CDT Pt sleeping soundly in bed. RR even and unlabored. Will continue to assess. 15 minute rounding remains in place. * Sandy Melissa RN - 01/18/2024 3:13 AM CDT This RN at bedside obtaining VS. Pt resting calmly in bed. RR even and unlabored. Will continue to assess. 15 minute rounding remains in place. * Sandy Melissa RN - 01/18/2024 2:17 AM CDT Pt sleeping soundly in bed. RR even and unlabored. Will continue to assess. 15 minute rounding remains in place. * Sandy Melissa RN - 01/18/2024 1:47 AM CDT Jarrell PCT noticed pt bed was dirty upon rounding. Pt had BM while sleeping in bed. This RN and PCT at bedside encouraging pt to get up to use toilet so we can change linen on bed and get him out ofhis dirty scrubs. Pt got on toilet. Bed linens changed and pt changed into new blue scrubs. * Qamar Huston PCA - 01/18/2024 1:45 AM CDT Pt noted to have soiled self while sleeping in bed. Pt provided with new linens, scrubs, and wash cloths to clean self with. * Sandy Melissa RN - 01/18/2024 1:10 AM CDT Pt resting calmly in bed. RR even and unlabored. Will continue to assess. 15 minute rounding remains in place. * Sandy Melissa RN - 01/18/2024 12:35 AM CDT Pt sleeping soundly in bed. RR even and unlabored. Will continue to assess. 15 minute rounding remains in place. * Sandy Melissa RN - 01/17/2024 11:27 PM CDT Pt sleeping soundly in bed. RR even and unlabored. Will continue to assess. 15 minute rounding remains in place. * Sandy Melissa RN - 01/17/2024 10:15 PM CDT Pt sleeping soundly in bed. RR even and unlabored. Will continue to assess. 15 minute rounding remains in place. * Sandy Melissa RN - 01/17/2024 9:17 PM CDT Pt sleeping soundly in bed. RR even and unlabored. Will continue to assess. 15 minute rounding remains in place. * Sandy Melissa RN - 01/17/2024 8:06 PM CDT Pt sleeping soundly in bed. RR even and unlabored. Dinner tray in bed with pt at this time as he issleeping. Will continue to assess. 15 minute rounding remains in place. * Sandy Melissa RN - 01/17/2024 7:23 PM CDT Pt back from CT at this time. * Sandy Melissa RN - 01/17/2024 7:20 PM CDT Pt to CT at this time via tech and security. * Romy Ritter RN - 01/17/2024 6:13 PM CDT Dinner tray ordered. * Romy Ritter RN - 01/17/2024 4:07 PM CDT This RN at bedside to collect labs. Patient continues to refuse stating after I eat . Patient educated on why we need to collect labs and and CT. * Romy Ritter RN - 01/17/2024 3:38 PM CDT Patient refusing blood work at this time, states after I eat and closes eyes. * Romy Ritter RN - 01/17/2024 2:50 PM CDT Meal tray ordered. * Romy Ritter RN - 01/17/2024 1:01 PM CDT Patients mother on phone stating case management coordinator called her and to be updated on patient status. Patient reports he will talk to her later and asking why did you guys call her . This RN explained that we did not call his mother that she is calling here. This RN told mother that we cannot further discuss patients care until he approves, she verbalizes understanding at this time. * Romy Ritter RN - 01/17/2024 12:19 PM CDT Patient resting on BH bed with eyes closed. Equal rise and fall of chest noted. * Mary Madera RN - 01/17/2024 11:53 AM CDT RN at bedside for reassessment. Pt A&Ox4 and answering questions appropriately. Pt provided juice after pts request. * Romy Ritter RN - 01/17/2024 11:15 AM CDT Patient belongings placed in belongings bag and labelled with patient information, secured in locker S4. Belongings include: black phone, cord, plug, farah track pants, black t-shirt, black tennis shoes. * Romy Ritter RN - 01/17/2024 10:20 AM CDT Chief Complaint Patient presents with Suicidal 28M to ED with c/o SI. Patient plans OD on meth to kill himself. Reports he had meth and a firearm but he got rid of it . Reports giving firearm to his best friend. This RN wrote the triage note. Patient unable to stay awake during field care coordinator. This RN woke patient up multiple times in an attempt to collect triage information with little success. Patient denies taking anything MARKING STITCHER. Isadora, patients case management coordinator accompanied patient to ED. Isadora reports patient called her after being discharged from [facility] for medical reasons, patient asked for a BH evaluation there and was told he would not be being admitted, patient made SI statements to Isadoraand she brought him here. manager hematology reports history of HIV and drug use. Patient resting on recliner in hallway. This RN placed patient on continuous SPO2. Patient currently A&Ox4, speaking 2-3 word sentences, equal rise and fall of chest noted, skin color consistent with ethnicity. * Fernando Menon MD - 01/17/2024 10:02 AM CDT HISTORY OF PRESENT ILLNESS 28 y/o M presents with his baker apprentice for evaluation. 12/22 admitted after intentional overdose 12/31-01/06 admitted to [facility] with depression 01/15 seen at [facility] and dx substance induced mood disorder 01/16 (today) patient presents with his baker apprentice. Patient states he has not slept in 4 days which has happened before with his bipolar. He states he is feeling more depressed and is feeling suicidalwith a plan to overdose on methamphetamine. He denies having done anything to harm himself up untilnow. Patient states he has a history of methamphetamine which he uses by smoking. No history of IV drug abuse. He states that he has not used in a month. He denies any other drug use including narcotics. No homicidal ideation or hallucinations PMH: inguinal hernia, HIV, syphilis, anal condyloma, transverse myelitis, bipolar depression, anxiety SHx: lives at sober living house PAST MEDICAL HISTORY REVIEWED MEDICAL: Patient has a past medical history of History of HIV infection. SURGICAL: Patient has a past surgical history that includes pt denies relevant surgical history. ALLERGIES Patient has no known allergies. PHYSICAL EXAM INITIAL VS BP: 125/78 (01/17/24 1012), Heart Rate: 65 bpm (01/17/24 1012), Resp: 16 (01/17/24 1012), Pulse: 65(01/17/24 1012), Temp: 98.4 ??F (36.9 ??C) (01/17/24 1012), Temp src: Oral (01/17/24 1012), SpO2: 100 % (01/17/24 1012), Height: 6' (182.9 cm) (01/17/24 1012), Weight: 81.6 kg (180 lb) (01/17/24 1012), BMI (Calculated): 24.41 (01/17/24 1012) No LMP for male patient. Physical Exam Vitals and nursing note reviewed. Constitutional: Appearance: He is not diaphoretic. HENT: Head: Normocephalic and atraumatic. Mouth/Throat: Lips: [place]. Mouth: Mucous membranes are moist. Pharynx: Oropharynx is clear. Eyes: General: Lids are normal. No scleral icterus. Conjunctiva/sclera: Conjunctivae normal. Pupils: [...] Chest: Chest wall: No tenderness. Abdominal: General: Bowel sounds are normal. There is no distension. Palpations: Abdomen is soft. There is no mass. Tenderness: There is no abdominal tenderness. There is no guarding or rebound. Musculoskeletal: General: No tenderness. Normal range of motion. Cervical back: Neck supple. Lymphadenopathy: Cervical: No cervical adenopathy. Skin: General: Skin is warm and dry. Coloration: Skin is not pale. Findings: No erythema or rash. Neurological: Mental Status: He is alert and oriented to person, place, and time. Cranial Nerves: No cranial nerve deficit (as tested). Motor: No abnormal muscle tone. Coordination: Coordination normal. Psychiatric: Attention and Perception: He does not perceive auditory hallucinations. Mood and Affect: Mood is depressed. Affect is flat. Speech: He is communicative. Speech is not rapid and pressured, delayed, slurred or tangential. Behavior: Behavior normal. Behavior is cooperative. Thought Content: Thought content is not paranoid. Thought content includes suicidal ideation. Thought content does not include homicidal ideation. Thought content includes suicidal plan. Judgment: Judgment normal. Comments: Patient appears sleepy and at times nods off and then jolts awake. He states he has not slept in 4 days. He is withdrawn but does answer questions. Appears to become slightly aggravated when asking questions that he indicates are in his record DIAGNOSTICS LAB: No data to display RADIOLOGY: No orders to display EKG: PROCEDURES Procedures MEDICAL DECISION MAKING AND PLAN OF CARE -- On initial evaluation discussed with the patient's baker apprentice will have counseling see him. Angelic LLOYD. Discussed getting labs but patient refuses blood draw. At this time low suspicion of an acute overdose. He had labs as recently as 2 weeks ago. Do not believe at this time the risk of forcibly getting labs is warranted. 11:42 AM: Counseling saw pt and states he was too sleepy to talk with them. They did get some information from his mother and will stop in again later. 12:25 PM: Counseling spoke to the patient. Asked that I write an affidavit to which I provided the history as documented Ruby. Pt will be admitted to Dr. Rodriguez. Medical Decision Making Risk Decision regarding hospitalization. Clinical Scoring & Consults . New Prescriptions for this Encounter LAST VS BP: 127/81 (01/17/241299), Heart Rate: (!) 53 bpm (01/17/241299), Resp: 18 (01/17/241299), Pulse: (!) 53 (01/17/241299), Temp: 98.9 ??F (37.2 ??C) (01/17/241299), Temp src: Oral (01/17/241299),SpO2: 100 % (01/17/241299) CLINICAL IMPRESSION Final diagnoses: [F33.2] Severe episode of recurrent major depressive disorder, without psychotic features (Primary) [F31.9] Bipolar affective disorder, remission status unspecified DISPOSITION, EDUCATION AND MEDICATION RECONCILIATION Medications reconciled. See after visit summary for patient education on discharged patients. ED Disposition ED Disposition Admit Condition Stable User Fernando Menon MD Date/Time Lara Jan 17, 2024 12:26 PM Comment -- ATTESTATION STATEMENTS Diagnoses Diagnosis Comment Added By Time Added Severe episode of recurrent major depressive disorder, without psychotic features [F33.2] Fernando Menon MD 01/17/2024 12:25 PM Bipolar affective disorder, remission status unspecified [F31.9] Fernando Menon MD 01/17/2024 12:26 PM documented in this encounter Miscellaneous Notes * Care Plan - Dasia Cook MSW - 01/25/2024 10:10 AM CDT Problem: Discharge Planning Goal: Identify discharge needs upon admission and through discharge Description: Outcome: Progressing 1010: SW checked with the [employer] [facility] website for a custodial bed. At this time, pt will not have a custodial bed as there are none available. SW will inform pt. 1030: SW met with pt on the unit to discuss d/c plans. Pt stated that he was aware that there were no custodial beds and that he would be d/c with bus passes and a list of custodial beds to go to. Pt stated that he did not have access to lethal means and understood d/c plans. 1036 SW called pt [facility] to discuss d/c plans. [facility], Isadora, is out of the office. SW left [facility] a voicemail with information on pt and his d/c plans. * Care Plan - Karey Ojeda RN - 01/25/2024 9:23 AM CDT DISCHARGE NOTE Maribell is calm, quiet and cooperative upon assessment. Says he slept good. Appetite is good. Ratesanxiety and depression /10. Endorses thoughts of SI without plan. Contracted for safety. Denies HI, V/A BAY. Med compliant. Isolates to room, otherwise behavior is appropriate. The following items have been completed prior to discharge: [x]Discharge follow up plan completed by social work, and present in AVS. [x]Specific follow up appointment made by social work, and contact information in AVS. If the above 2 points are not marked as complete, the following action has been completed. []workers compensation consultant unavailable to see patient prior to discharge, clinical library supervisor/charge nurse notified to ensure discharge plan is complete and present in AVS. Standard Suicide Risk Assessment Maribell Agrees to participate in the risk assessment. [x] Patient is a low or moderate suicide risk based on the C-SSRS Scale [] Patient is a high risk based on the C-SSRS Scale. [] Attending physician has been notified of high suicide risk based on the C- SSRS at (Time) on (Date). Physician recommendation is to continue with discharge. Maribell???s progress toward care plan and treatment plan goals are adequate for discharge, or have been resolved. Education has been provided to Maribell in verbal and written form regarding discharge medications, follow up appointments, and outpatient and/or crisis resources available to him. Maribell and/or caregiver relay understanding of instructions, and he is discharged with belongings to self to custodial via bus. [] Patient is being discharged to an inpatient facility. Report has been given to accepting facility. All questions have been answered regarding patient care. Maribell escorted off unit on (Date) 01/25/24 at (Time) 1200 * Care Plan - Karey Ojeda RN - 01/25/2024 9:23 AM CDT Problem: Suicide Risk/Attempt Goal: Halfway: Reduction of suicidal thoughts and absence of suicidal behavior throughout admission and establish a safety plan by discharge. Outcome: Resolved Problem: Anxiety Goal: Halfway:Maintain anxiety at a functional level as evidenced by absence of disabling behaviors in response to stress by discharge. Outcome: Resolved Problem: Depressed Mood Goal: Halfway: Demonstrates reduced symptoms of depression and improved level of functioning by discharge. Outcome: Resolved Problem: Musculoskeletal Goal: Achieve optimal musculoskeletal function by discharge or maintain baseline function Outcome: Resolved Problem: Discharge Planning Goal: Identify discharge needs upon admission and through discharge Description: Outcome: Resolved Problem: Cognitive/Perceptual/Neuro Goal: Achieve optimal cognitive/perceptual/neurological function by discharge or maintain baseline function Outcome: Resolved * Care Plan - Melia Harris RN - 01/25/2024 5:11 AM CDT Shift Narrative: Patient isolative to room. Compliant with medications. Atarax administered PRN for anxiety. Patientcalm and cooperative with staff. Rated anxiety and depression 12/30. Asleep by 1953 hours. Slept allnight. Precautions Behavioral Health Precautions: Suicide precautions (01/25/24199) Summary of Maribell's problems and interventions: (See flowsheets for more detailed summary) Plan of Care Reviewed with: patient (01/25/24199) Patient's Individualized Goal: none given (01/25/24199) Maribell's response to interventions this shift: Accepting Maribell's perception of symptoms and progress toward goals: improved Discharge follow up plan reviewed/discussed during the 1:1 shift interview: no Does the patient have a legal guardian? No If yes, describe: Does the patient have a Power of Concrete Pump Operator Helper? No If yes, describe: Legal Status: [facility] MENTAL HEALTH ASSESSMENT: Behavior: Calm;Isolative;Cooperative (01/25/24199) Observed Emotional State: anxious;cooperative (01/25/24199) Verbalized Emotional State: anxiety;depression (01/25/24199) Speech: No problems observed (01/25/24199) Thought Processes: Disorganized (01/25/24199) Social Judgement: Difficulty in problem solving (01/25/24199) Appearance: Appears stated age (01/25/24199) Risk Assessment 1. Have you wished you were or wished you could go to sleep and not wake up?: No (01/25/24199) 2. Have you actually had any thoughts of killing yourself?: No (01/25/24199) 6. Have you ever done anything, started to do anything, or prepared to do anything to end your life?: No (01/25/24199) Suicide Risk and Interventions: Low (01/19/2445) Depressive Symptoms Symptoms: Change in energy level;Isolative;Loss of interest (01/25/24199) Describe: 10/30 (01/25/24199) Anxiety Symptoms Symptoms: Generalized (01/25/24199) Describe: 12/30 (01/25/24199) Manic Symptoms Symptoms: No problems reported or observed (01/25/24199) Describe: Patient denies (01/23/242134) Psychotic Symptoms Hallucination Type: No problems reported or observed (01/25/24199) Onset of Current Symptoms: No s/s (01/23/242134) Delusion Type: No problems reported or observed (01/25/24199) Onset of Current Symptoms: No s/s (01/23/242134) Homicidal Ideation Violence-Risk Towards Others In the past month have you had thoughts of harming another person?: No (01/25/24199) Broset Broset Violence Checklist Confusion - Appears obviously confused and disoriented. May be unaware of person, place, time.: No (01/25/24199) Irritability - Easily annoyed or angered. Unable to tolerate the presence of others.: No (01/25/24199) Boisterous - Behavior is overtly loud or noisy. For example slams doors, shouts out when talking etc.: No (01/25/24199) Verbal Threat - A verbal outburst which is more than just a raised voice and where there is a definite intent to intimidate or threaten another person. For example, verbal attacks, abuse, name-calling, verbally neutral comments uttered in a snarling aggressive manner.: No (01/25/24199) Physical Attacks - Where there is a definite intent to physically threaten another person. For example, the taking of an aggressive stance, the grabbing of another person???s clothing, the raising ofan arm or leg, making a fist or modeling a head-butt directed at another. : No (01/25/24199) Attacks on Objects - An attack directed at an object and not an individual. For example, the indiscriminant throwing of an object, banging or smashing windows, kicking, banging or head butting an object or the smashing of furniture. : No (01/25/24199) Total: 0 (01/25/24199) CHELE Behaviors Assessing Overt Behavior for CHELE: None noted (01/25/24199) Risk Lead Communication Risk Lead Name: Update provided: [] Yes [x] No Summary of conversation: Any concerns (if yes, please explain): Voicemail left for personal care home administrator: [x] N/A [] No [] Yes: Date/Time Medical Issues/New Medication Teaching Maribell was informed about benefits and any potential clinically significant side effects or other concerns regarding the administration of the medication he was given. See separate notes for any prn medications provided during shift. * Care Plan - Melia Harris RN - 01/25/2024 5:11 AM CDT Problem: Anxiety Goal: Gas Line Repairer:Maintain anxiety at a functional level as evidenced by absence of disabling behaviors in response to stress by discharge. Outcome: Variance Note: Patient isolative to room. Rated anxiety and depression both 6/ Problem: Depressed Mood Goal: Gas Line Repairer: Demonstrates reduced symptoms of depression and improved level of functioning by discharge. Outcome: Variance Problem: Suicide Risk/Attempt Goal: Gas Line Repairer: Reduction of suicidal thoughts and absence of suicidal behavior throughout admission and establish a safety plan by discharge. Outcome: Progressing Problem: Musculoskeletal Goal: Achieve optimal musculoskeletal function by discharge or maintain baseline function Outcome: Progressing Problem: Discharge Planning Goal: Identify discharge needs upon admission and through discharge Description: Outcome: Progressing Problem: Cognitive/Perceptual/Neuro Goal: Achieve optimal cognitive/perceptual/neurological function by discharge or maintain baseline function Outcome: Progressing * Care Plan - Melia Harris RN - 01/25/2024 3:23 AM CDT Assumed care of patient at 0130 hours. * Care Plan - Melia Harris RN - 01/25/2024 1:36 AM CDT During this shift, Maribell was given the prn medication Atarax for anxiety, as demonstrated by the following behavior: Patient requested the medication. (See MAR for administration time.) Approximately 1 hour after medication administration, Maribell appeared or reported the following: Patient sleeping. * Care Plan - Juan Lucero RN - 01/24/2024 12:55 PM CDT Shift Narrative: Maribell tends to isolate in room. Maribell's mood is calm and cooperative, and affect is appropriate, and is A+O X 4. Maribell Is med and meal compliant. Maribell does not go to scheduled programming. Denies HI, SI, and contracts for safety and denies hallucinations. Depression is rated 4/10 and anxiety is rated a 6/10. Thought content is logical and organized. Precautions Behavioral Health Precautions: Suicide precautions (fall precautions) (01/24/24944) Summary of Maribell's problems and interventions: (See flowsheets for more detailed summary) Plan of Care Reviewed with: patient (01/24/24944) Patient's Individualized Goal: to go to groups (01/24/24944) Maribell's response to interventions this shift: Accepting Maribell's perception of symptoms and progress toward goals: not changed Discharge follow up plan reviewed/discussed during the 1:1 shift interview: no Does the patient have a legal guardian? No If yes, describe: Does the patient have a Power of Concrete Pump Operator Helper? No If yes, describe: Legal Status: Voluntary MENTAL HEALTH ASSESSMENT: Behavior: Calm;Isolative;Cooperative (01/24/24944) Observed Emotional State: anxious (01/24/24944) Verbalized Emotional State: anxiety;depression (01/24/24944) Speech: No problems observed (01/24/24944) Thought Processes: Disorganized (01/24/24944) Social Judgement: Difficulty in problem solving (01/24/24944) Appearance: Appears stated age (01/24/24944) Risk Assessment 1. Have you wished you were or wished you could go to sleep and not wake up?: No (01/23/24925) 2. Have you actually had any thoughts of killing yourself?: No (01/24/24944) 6. Have you ever done anything, started to do anything, or prepared to do anything to end your life?: No (01/24/24944) Suicide Risk and Interventions: Low (01/19/24844) Depressive Symptoms Symptoms: Change in energy level (01/24/24944) Describe: 10/30 (01/24/24944) Anxiety Symptoms Symptoms: Generalized (01/24/24944) Describe: 12/30 (01/24/24944) Manic Symptoms Symptoms: No problems reported or observed (01/24/24944) Describe: Patient denies (01/23/242134) Psychotic Symptoms Hallucination Type: No problems reported or observed (01/24/24944) Onset of Current Symptoms: No s/s (01/23/242134) Delusion Type: No problems reported or observed (01/24/24944) Onset of Current Symptoms: No s/s (01/23/242134) Homicidal Ideation Violence-Risk Towards Others In the past month have you had thoughts of harming another person?: No (01/24/24944) Broset Broset Violence Checklist Confusion - Appears obviously confused and disoriented. May be unaware of person, place, time.: No (01/24/24944) Irritability - Easily annoyed or angered. Unable to tolerate the presence of others.: No (01/24/24944) Boisterous - Behavior is overtly loud or noisy. For example slams doors, shouts out when talking etc.: No (01/24/24944) Verbal Threat - A verbal outburst which is more than just a raised voice and where there is a definite intent to intimidate or threaten another person. For example, verbal attacks, abuse, name-calling, verbally neutral comments uttered in a snarling aggressive manner.: No (01/24/24944) Physical Attacks - Where there is a definite intent to physically threaten another person. For example, the taking of an aggressive stance, the grabbing of another person???s clothing, the raising ofan arm or leg, making a fist or modeling a head-butt directed at another. : No (01/24/24944) Attacks on Objects - An attack directed at an object and not an individual. For example, the indiscriminant throwing of an object, banging or smashing windows, kicking, banging or head butting an object or the smashing of furniture. : No (01/24/24944) Total: 0 (01/24/24944) CHELE Behaviors Assessing Overt Behavior for CHELE: None noted (01/24/24944) Medical Issues/New Medication Teaching Maribell was informed about benefits and any potential clinically significant side effects or other concerns regarding the administration of the medication he was given. See separate notes for any prn medications provided during shift. Problem: Suicide Risk/Attempt Goal: Halfway: Reduction of suicidal thoughts and absence of suicidal behavior throughout admission and establish a safety plan by discharge. Outcome: Progressing Problem: Anxiety Goal: Gas Line Repairer:Maintain anxiety at a functional level as evidenced by absence of disabling behaviors in response to stress by discharge. Outcome: Progressing Problem: Anxiety Goal: Gas Line Repairer:Maintain anxiety at a functional level as evidenced by absence of disabling behaviors in response to stress by discharge. Outcome: Progressing Problem: Depressed Mood Goal: Gas Line Repairer: Demonstrates reduced symptoms of depression and improved level of functioning by discharge. Outcome: Progressing Problem: Musculoskeletal Goal: Achieve optimal musculoskeletal function by discharge or maintain baseline function Outcome: Progressing Problem: Discharge Planning Goal: Identify discharge needs upon admission and through discharge Description: Outcome: Progressing Problem: Cognitive/Perceptual/Neuro Goal: Achieve optimal cognitive/perceptual/neurological function by discharge or maintain baseline function Outcome: Progressing * Care Plan - Becki Palacios RN - 01/24/2024 6:53 AM CDT Maribell remained free from harm throughout shift. No signs or reports of discomfort or distress. [place] maintained on rounds every 15 minutes for safety. Staff will continue to monitor [place] for safety and provide support as needed. Sleep Hours Night (6p-6a): 9 (01/24/24599) Sleep/Rest/Relaxation: no problem identified (01/24/24599) Sleep Location: Assigned Rm and Bed (01/24/24599) Patient/Guardian agrees with sleep location: Yes (01/24/24599) * Care Plan - Abelardo Nash RN - 01/23/2024 10:16 PM CDT Shift Narrative: Met with patient in his room. Patient is disheveled, and isolative to room. Bed linens changed and clean scrubs offered to patient. Patient reports that he is tired and just wants to sleep. Patient denies SI/HI/AH/VH. Patient admits to 7/10 anxiety and 4/10 depression. Patient received atarax for anxiety. Patient encouraged to use positive coping skills. Shower offered to patient tonight, patientdeclined. [id number] checks maintained for safety. Precautions Behavioral Health Precautions: Suicide precautions (01/23/242134) Summary of Maribell's problems and interventions: (See flowsheets for more detailed summary) Plan of Care Reviewed with: patient (01/23/242134) Patient's Individualized Goal: sleep (01/23/242134) Maribell's response to interventions this shift: Accepting Maribell's perception of symptoms and progress toward goals: improved Discharge follow up plan reviewed/discussed during the 1:1 shift interview: no Does the patient have a legal guardian? No If yes, describe: Does the patient have a Power of Concrete Pump Operator Helper? No If yes, describe: Legal Status: Voluntary MENTAL HEALTH ASSESSMENT: Behavior: Calm;Isolative;Cooperative (01/23/242134) Observed Emotional State: anxious (01/23/242134) Verbalized Emotional State: anxiety;depression;withdrawn (01/23/242134) Speech: No problems observed (01/23/242134) Thought Processes: Disorganized (01/23/242134) Social Judgement: Difficulty in problem solving (01/23/242134) Appearance: Disheveled (01/23/242134) Risk Assessment 1. Have you wished you were or wished you could go to sleep and not wake up?: No (01/23/24925) 2. Have you actually had any thoughts of killing yourself?: No (01/23/242134) 6. Have you ever done anything, started to do anything, or prepared to do anything to end your life?: No (01/23/242134) Suicide Risk and Interventions: Low (01/19/24 0845) Depressive Symptoms Symptoms: Change in energy level;Isolative (01/23/242134) Describe: 10/30 (01/23/242134) Anxiety Symptoms Symptoms: Generalized (01/23/242134) Describe: 01/29 (01/23/242134) Manic Symptoms Symptoms: No problems reported or observed (01/23/242134) Describe: Patient denies (01/23/242134) Psychotic Symptoms Hallucination Type: No problems reported or observed (01/23/242134) Onset of Current Symptoms: No s/s (01/23/242134) Delusion Type: No problems reported or observed (01/23/242134) Onset of Current Symptoms: No s/s (01/23/242134) Homicidal Ideation Violence-Risk Towards Others In the past month have you had thoughts of harming another person?: No (01/23/242134) Broset Broset Violence Checklist Confusion - Appears obviously confused and disoriented. May be unaware of person, place, time.: No (01/23/242134) Irritability - Easily annoyed or angered. Unable to tolerate the presence of others.: No (01/23/242134) Boisterous - Behavior is overtly loud or noisy. For example slams doors, shouts out when talking etc.: No (01/23/242134) Verbal Threat - A verbal outburst which is more than just a raised voice and where there is a definite intent to intimidate or threaten another person. For example, verbal attacks, abuse, name-calling, verbally neutral comments uttered in a snarling aggressive manner.: No (01/23/242134) Physical Attacks - Where there is a definite intent to physically threaten another person. For example, the taking of an aggressive stance, the grabbing of another person???s clothing, the raising ofan arm or leg, making a fist or modeling a head-butt directed at another. : No (01/23/242134) Attacks on Objects - An attack directed at an object and not an individual. For example, the indiscriminant throwing of an object, banging or smashing windows, kicking, banging or head butting an object or the smashing of furniture. : No (01/23/242134) Total: 0 (01/23/242134) CHELE Behaviors Assessing Overt Behavior for CHELE: None noted (01/23/242134) Risk Lead Communication Risk Lead Name: Update provided: [] Yes [] No Summary of conversation: Any concerns (if yes, please explain): Voicemail left for personal care home administrator: [] N/A [] No [] Yes: Date/Time Medical Issues/New Medication Teaching Maribell was informed about benefits and any potential clinically significant side effects or other concerns regarding the administration of the medication he was given. See separate notes for any prn medications provided during shift. Problem: Anxiety Goal: Halfway:Maintain anxiety at a functional level as evidenced by absence of disabling behaviors in response to stress by discharge. Outcome: Variance Problem: Depressed Mood Goal: Gas Line Repairer: Demonstrates reduced symptoms of depression and improved level of functioning by discharge. Outcome: Variance Problem: Musculoskeletal Goal: Achieve optimal musculoskeletal function by discharge or maintain baseline function Outcome: Variance Problem: Discharge Planning Goal: Identify discharge needs upon admission and through discharge Description: Outcome: Variance Problem: Suicide Risk/Attempt Goal: Halfway: Reduction of suicidal thoughts and absence of suicidal behavior throughout admission and establish a safety plan by discharge. Outcome: Progressing Problem: Cognitive/Perceptual/Neuro Goal: Achieve optimal cognitive/perceptual/neurological function by discharge or maintain baseline function Outcome: Progressing * Care Plan - Abelardo Nash RN - 01/23/2024 9:34 PM CDT During this shift, Maribell was given the prn medication Atarax 50mg PO for anxiety, as demonstratedby the following behavior: Patient c/o 7/10 anxiety (See MAR for administration time.) Approximately 1 hour after medication administration, Maribell appeared or reported the following: Patient appears asleep in bed, respirations even and unlabored. * Care Plan - Wesley Menjivar RN - 01/23/2024 2:03 PM CDT Shift Narrative: Maribell was calm and cooperative throughout shift. Pt denies SI/HI/AVH/Delusions. Pt rates anxiety at a 8/10. Pt rates depression at a 8/10. Pt is medication and meal compliant. Attends groups and interacts appropriately with staff and peers. Pt isolates self to room for most of shift coming out for meals. Staff will continue to monitor pt for safety and provide support as needed. Precautions Behavioral Health Precautions: Suicide precautions (01/23/24925) Summary of Maribell's problems and interventions: (See flowsheets for more detailed summary) Plan of Care Reviewed with: patient (01/23/24925) Patient's Individualized Goal: housing (01/23/24925) Maribell's response to interventions this shift: Accepting Maribell's perception of symptoms and progress toward goals: not changed Discharge follow up plan reviewed/discussed during the 1:1 shift interview: no Does the patient have a legal guardian? No If yes, describe: Does the patient have a Power of Concrete Pump Operator Helper? No If yes, describe: Legal Status: Voluntary MENTAL HEALTH ASSESSMENT: Behavior: Calm;Cooperative;Isolative (01/23/24925) Observed Emotional State: anxious (01/23/24925) Verbalized Emotional State: anxiety;depression (01/23/24925) Speech: No problems observed (01/23/24925) Thought Processes: Disorganized (01/23/24925) Social Judgement: Difficulty in problem solving (01/23/24925) Appearance: Appears stated age;Disheveled (01/23/24925) Risk Assessment 1. Have you wished you were or wished you could go to sleep and not wake up?: No (01/23/24925) 2. Have you actually had any thoughts of killing yourself?: No (01/23/24925) 6. Have you ever done anything, started to do anything, or prepared to do anything to end your life?: No (01/23/24925) Suicide Risk and Interventions: Low (01/19/24 08) Depressive Symptoms Symptoms: Change in energy level (01/23/24925) Describe: pt rates 03/01 (01/23/24925) Anxiety Symptoms Symptoms: Generalized (01/23/24925) Describe: pt rates 03/01 (01/23/24925) Manic Symptoms Symptoms: No problems reported or observed (01/23/24925) Describe: denies (01/23/24925) Psychotic Symptoms Hallucination Type: No problems reported or observed (01/23/24925) Onset of Current Symptoms: no s/s (01/23/24925) Delusion Type: No problems reported or observed (01/23/24925) Onset of Current Symptoms: none voiced (01/23/24925) Homicidal Ideation Violence-Risk Towards Others In the past month have you had thoughts of harming another person?: No (01/23/24925) Broset Broset Violence Checklist Confusion - Appears obviously confused and disoriented. May be unaware of person, place, time.: No (01/23/24925) Irritability - Easily annoyed or angered. Unable to tolerate the presence of others.: No (01/23/24925) Boisterous - Behavior is overtly loud or noisy. For example slams doors, shouts out when talking etc.: No (01/23/24925) Verbal Threat - A verbal outburst which is more than just a raised voice and where there is a definite intent to intimidate or threaten another person. For example, verbal attacks, abuse, name-calling, verbally neutral comments uttered in a snarling aggressive manner.: No (01/23/24925) Physical Attacks - Where there is a definite intent to physically threaten another person. For example, the taking of an aggressive stance, the grabbing of another person???s clothing, the raising ofan arm or leg, making a fist or modeling a head-butt directed at another. : No (01/23/24925) Attacks on Objects - An attack directed at an object and not an individual. For example, the indiscriminant throwing of an object, banging or smashing windows, kicking, banging or head butting an object or the smashing of furniture. : No (01/23/24925) Total: 0 (01/23/24925) CHELE Behaviors Assessing Overt Behavior for CHELE: None noted (01/23/24925) Risk Lead Communication Risk Lead Name: Update provided: [] Yes [] No Summary of conversation: Any concerns (if yes, please explain): Voicemail left for personal care home administrator: [] N/A [] No [] Yes: Date/Time Medical Issues/New Medication Teaching Maribell was informed about benefits and any potential clinically significant side effects or other concerns regarding the administration of the medication he was given. See separate notes for any prn medications provided during shift. * Care Plan - Trish Osullivan MSW - 01/23/2024 2:00 PM CDT Problem: Discharge Planning Goal: Identify discharge needs upon admission and through discharge Description: Outcome: Progressing SW met with pt on the unit. SW provided a list of Sober Living homes to pt. Pt reports that he plans to start calling today. Pt reports that he is open to a custodial as well. SW agreeable. SW informedpt that there are not any custodial beds open at this time. Pt agreeable. Pt denied additional questions or concerns at this time. * Care Plan - Wesley Menjivar RN - 01/23/2024 1:34 PM CDT Problem: Suicide Risk/Attempt Goal: Halfway: Reduction of suicidal thoughts and absence of suicidal behavior throughout admission and establish a safety plan by discharge. Outcome: Progressing Problem: Anxiety Goal: Gas Line Repairer:Maintain anxiety at a functional level as evidenced by absence of disabling behaviors in response to stress by discharge. Outcome: Progressing Problem: Depressed Mood Goal: Gas Line Repairer: Demonstrates reduced symptoms of depression and improved level of functioning by discharge. Outcome: Progressing Problem: Musculoskeletal Goal: Achieve optimal musculoskeletal function by discharge or maintain baseline function Outcome: Progressing Problem: Discharge Planning Goal: Identify discharge needs upon admission and through discharge Description: Outcome: Progressing Problem: Cognitive/Perceptual/Neuro Goal: Achieve optimal cognitive/perceptual/neurological function by discharge or maintain baseline function Outcome: Progressing * Care Plan - Becki Palacios RN - 01/23/2024 6:20 AM CDT Maribell remained free from harm throughout shift. No signs or reports of discomfort or distress. Maribell maintained on rounds every 15 minutes for safety. Staff will continue to monitor Maribell for safety and provide support as needed. Sleep Hours Night (6p-6a): 12 (01/23/24599) Sleep/Rest/Relaxation: no problem identified;appears asleep (01/23/24599) Sleep Location: assigned bed (01/23/24599) Patient/Guardian agrees with sleep location: Yes (01/23/24599) * Care Plan - Becki Palacios RN - 01/23/2024 12:33 AM CDT Shift Narrative: Patient was alert and oriented to person, place, and situation . Patient was isolative and quiet . Patient appeared to be interacting appropriately with staff and peers. Patient rated depression as a10 out of 10 and anxiety as a 8 out of 10. Patient does not endorse SI. Patient does not endorse HI. Patient does not endorse A/V hallucinations. Patient was med compliant. Precautions Behavioral Health Precautions: Suicide precautions (01/22/241999) Summary of Maribell's problems and interventions: (See flowsheets for more detailed summary) Plan of Care Reviewed with: patient (01/22/241999) Patient's Individualized Goal: get housing (01/22/241999) Maribell's response to interventions this shift: Accepting Maribell's perception of symptoms and progress toward goals: not changed Discharge follow up plan reviewed/discussed during the 1:1 shift interview: no Does the patient have a legal guardian? No If yes, describe: Does the patient have a Power of Concrete Pump Operator Helper? No If yes, describe: Legal Status: Voluntary MENTAL HEALTH ASSESSMENT: Behavior: Calm;Cooperative;Isolative (01/22/241999) Observed Emotional State: anxious;cooperative;withdrawn (01/22/241999) Verbalized Emotional State: anxiety;depression (01/22/241999) Speech: No problems observed (01/22/241999) Thought Processes: Disorganized (01/22/241999) Social Judgement: Difficulty in problem solving (01/22/241999) Appearance: Appears stated age;Disheveled (01/22/241999) Risk Assessment 1. Have you wished you were or wished you could go to sleep and not wake up?: No (01/22/241999) 2. Have you actually had any thoughts of killing yourself?: No (01/22/241999) 6. Have you ever done anything, started to do anything, or prepared to do anything to end your life?: No (01/22/241999) Suicide Risk and Interventions: Low (01/19/24 0845) Depressive Symptoms Symptoms: Sleep disturbance;Isolative (01/22/241999) Describe: 05/01 (01/22/241999) Anxiety Symptoms Symptoms: Generalized (01/22/241999) Describe: 03/01 (01/22/241999) Manic Symptoms Symptoms: No problems reported or observed (01/22/241999) Psychotic Symptoms Hallucination Type: No problems reported or observed (01/22/241999) Delusion Type: No problems reported or observed (01/22/241999) Homicidal Ideation Violence-Risk Towards Others In the past month have you had thoughts of harming another person?: No (01/22/241999) Broset Broset Violence Checklist Confusion - Appears obviously confused and disoriented. May be unaware of person, place, time.: No (01/22/241999) Irritability - Easily annoyed or angered. Unable to tolerate the presence of others.: No (01/22/241999) Boisterous - Behavior is overtly loud or noisy. For example slams doors, shouts out when talking etc.: No (01/22/241999) Verbal Threat - A verbal outburst which is more than just a raised voice and where there is a definite intent to intimidate or threaten another person. For example, verbal attacks, abuse, name-calling, verbally neutral comments uttered in a snarling aggressive manner.: No (01/22/241999) Physical Attacks - Where there is a definite intent to physically threaten another person. For example, the taking of an aggressive stance, the grabbing of another person???s clothing, the raising ofan arm or leg, making a fist or modeling a head-butt directed at another. : No (01/22/241999) Attacks on Objects - An attack directed at an object and not an individual. For example, the indiscriminant throwing of an object, banging or smashing windows, kicking, banging or head butting an object or the smashing of furniture. : No (01/22/241999) Total: 0 (01/22/241999) CHELE Behaviors Assessing Overt Behavior for CHELE: None noted (01/22/241999) Medical Issues/New Medication Teaching Maribell was informed about benefits and any potential clinically significant side effects or other concerns regarding the administration of the medication he was given. * Care Plan - Becki Palaicos RN - 01/23/2024 12:32 AM CDT Problem: Suicide Risk/Attempt Goal: Gas Line Repairer: Reduction of suicidal thoughts and absence of suicidal behavior throughout admission and establish a safety plan by discharge. Outcome: Progressing Problem: Anxiety Goal: Gas Line Repairer:Maintain anxiety at a functional level as evidenced by absence of disabling behaviors in response to stress by discharge. Outcome: Progressing Problem: Depressed Mood Goal: Gas Line Repairer: Demonstrates reduced symptoms of depression and improved level of functioning by discharge. Outcome: Progressing Problem: Musculoskeletal Goal: Achieve optimal musculoskeletal function by discharge or maintain baseline function Outcome: Progressing Problem: Discharge Planning Goal: Identify discharge needs upon admission and through discharge Description: Outcome: Progressing * Assessment & Plan Note - Avtar Ballard MD - 01/22/2024 12:59 PM CDT Associated Problem(s): Bipolar disorder, current episode depressed, severe Suboptima control -cymbalta 60 mg AM - * Assessment & Plan Note - Avtar Ballard MD - 01/22/2024 12:55 PM CDT Associated Problem(s): Methamphetamine abuse Controlled in inpt setting and relapsed at sober Living. * Assessment & Plan Note - Avtar Ballard MD - 01/22/2024 12:54 PM CDT Associated Problem(s): Suicidal ideations Resolved. Monitor on SP. * Care Plan - Trish Osulilvan MSW - 01/22/2024 12:28 PM CDT Problem: Discharge Planning Goal: Identify discharge needs upon admission and through discharge Description: Outcome: Progressing Jyoti ([facility]) ([phone]) returned SW phone call. AVTAR and Jyoti discussed pt. Jyoti informed SW that she will need to follow up with the director to confirm if pt can return ofnot. AVTAR agreeable. Jyoti informed AVTAR that she plans to follow up with the director and call SW back AVTAR agreeable. Jyoti denied additional questions or concerns at this time. SW to await follow up from Jyoti. Jyoti ([facility]) ([phone]) called AVTAR and informed SW that pt is unable to return to [facility] due to prior events . AVTAR agreeable. SW to follow up with pt. AVTAR met with pt on the unit. AVTAR informed pt that he is unable to return to the [facility]. Ptreports that he would like to call his [facility] about potential options for discharge. SW agreeable. AVTAR provided [facility] number to pt. Pt denied additional questions or concerns at this time. SW to follow up. * Care Plan - Mahsa Spears - 01/22/2024 11:58 AM CDT Problem: Discharge Planning Goal: Identify discharge needs upon admission and through discharge Description: Outcome: Progressing Recreation Therapy Adult Assessment This medical writer met 1:1 with Pt to complete assessment. Reason for Treatment: SI, trying to maintain sobriety Patient's Individualized Goal: sleep (01/21/242022) Patients Affect: mood-congruent Behavior: pleasant/Friendly Social: cooperative Current Leisure Interests: journal and read What do you do for exercise and how often? Not really What clubs, organizations, or support groups do you belong to? If none, who do you go to for support? Support group, sponsor, some family Do any of the following interfere with your leisure activities? [] money [] work schedule [] lack of motivation/energy [] not enough time/poor time-management [] social discomfort [] poor confidence [] sleep disorder [x] too much stress/responsibility [] knowledge of low cost activities [x] addiction (eating, gambling, substance abuse) [] no one to do things with [] transportation [] physical limitations [] other What would you like to change about the way you spend your free time? Stay sober What causes your anxiety/stressors? Maintaining sobriety, recent in the family Rate your self-esteem: [x] Good [] Fair [] Low List three positive things about yourself: 1. 2. 3. Physical Status: See RN/MD assessment Treatment Plan Interventions: Rec. Therapy will offer programming while in treatment for education and continued assessment on positive coping skills, leisure education, self esteem, emotion regulation, stress and anger management, communication skills, and relaxation skills. Programming will provide opportunities for healthy self-expression and appropriate social interactions. RT will encourage participation in all programming, will document progress, and will provide support as needed. Mahsa Spears 01/22/2024 * Care Plan - Colton Winslow RN - 01/22/2024 10:53 AM CDT Shift Narrative: Pt was calm, cooperative, compliant with medications, and meals. Pt did not attend group therapy. Pt was isolative and preferred staying in his room. Pt denied depression / anxiety / SI / HI / BAY. Encouraged pt to attend group therapy. Explained plan of care and medications. Therapeutic support given. Pt verbalized understanding. Precautions Behavioral Health Precautions: Suicide precautions (01/22/24 09) Summary of Maribell's problems and interventions: (See flowsheets for more detailed summary) Plan of Care Reviewed with: patient (01/22/24899) Patient's Individualized Goal: sleep (01/21/242022) Maribell's response to interventions this shift: Accepting Maribell's perception of symptoms and progress toward goals: improved Discharge follow up plan reviewed/discussed during the 1:1 shift interview: yes Does the patient have a legal guardian? No If yes, describe: Does the patient have a Power of Concrete Pump Operator Helper? No If yes, describe: Legal Status: Voluntary MENTAL HEALTH ASSESSMENT: Behavior: Calm;Cooperative;Isolative (01/22/24899) Observed Emotional State: accepting;calm;cooperative;withdrawn (01/22/24899) Verbalized Emotional State: acceptance;withdrawn (01/22/24899) Speech: No problems observed (01/22/24899) Thought Processes: Disorganized (01/22/24899) Social Judgement: Difficulty in problem solving (01/22/24899) Appearance: Appears stated age;Disheveled (01/22/24899) Risk Assessment 1. Have you wished you were or wished you could go to sleep and not wake up?: No (01/22/24899) 2. Have you actually had any thoughts of killing yourself?: No (01/21/242022) 6. Have you ever done anything, started to do anything, or prepared to do anything to end your life?: No (01/21/242022) Suicide Risk and Interventions: Low (01/19/24844) Depressive Symptoms Symptoms: Change in energy level;Isolative;Loss of interest (01/22/24899) Describe: 10/30 (01/21/242022) Anxiety Symptoms Symptoms: No problems reported or observed (01/22/24899) Describe: 12/30 (01/21/242022) Manic Symptoms Symptoms: No problems reported or observed (01/22/24899) Psychotic Symptoms Hallucination Type: No problems reported or observed (01/22/24899) Delusion Type: No problems reported or observed (01/22/24899) Homicidal Ideation Violence-Risk Towards Others In the past month have you had thoughts of harming another person?: No (01/22/24899) Broset Broset Violence Checklist Confusion - Appears obviously confused and disoriented. May be unaware of person, place, time.: No (01/22/24899) Irritability - Easily annoyed or angered. Unable to tolerate the presence of others.: No (01/22/24899) Boisterous - Behavior is overtly loud or noisy. For example slams doors, shouts out when talking etc.: No (01/22/24899) Verbal Threat - A verbal outburst which is more than just a raised voice and where there is a definite intent to intimidate or threaten another person. For example, verbal attacks, abuse, name-calling, verbally neutral comments uttered in a snarling aggressive manner.: No (01/22/24899) Physical Attacks - Where there is a definite intent to physically threaten another person. For example, the taking of an aggressive stance, the grabbing of another person???s clothing, the raising ofan arm or leg, making a fist or modeling a head-butt directed at another. : No (01/22/24899) Attacks on Objects - An attack directed at an object and not an individual. For example, the indiscriminant throwing of an object, banging or smashing windows, kicking, banging or head butting an object or the smashing of furniture. : No (01/22/24899) Total: 0 (01/22/24899) CHELE Behaviors Assessing Overt Behavior for CHELE: None noted (01/22/24899) Risk Lead Communication Risk Lead Name: Update provided: [] Yes [] No Summary of conversation: Any concerns (if yes, please explain): Voicemail left for personal care home administrator: [] N/A [] No [] Yes: Date/Time Medical Issues/New Medication Teaching Maribell was informed about benefits and any potential clinically significant side effects or other concerns regarding the administration of the medication he was given. See separate notes for any prn medications provided during shift. * Care Plan - Chris Moy RN - 01/22/2024 6:04 AM CDT Maribell remained free from harm throughout shift. No signs or reports of discomfort or distress. Maribell maintained on rounds every 15 minutes for safety. Staff will continue to monitor Maribell for safety and provide support as needed. Sleep Hours Night (6p-6a): 11.5 (01/22/24599) Sleep/Rest/Relaxation: appears asleep;no problem identified (01/22/24599) Sleep Location: assigned bed (01/22/24599) Patient/Guardian agrees with sleep location: Yes (01/22/24599) * Care Plan - Chris Moy RN - 01/22/2024 1:28 AM CDT Shift Narrative: Assumed care of patient. Patient is Alert and oriented X 4. Patient appears withdrawn, isolative, sedentary, and cooperative. Observed isolated to room laying in bed. Denies SI/HI thoughts and contracts for safety. Denies auditory and visual hallucinations. Rates depression 4/10 and anxiety 6/10. Patient has not been attending groups. Medication compliant. Interacting with peers and staff appropriately. Patient encouraged to inform staff of needs or concerns. Safety rounds maintained every 15 minutes for safety. Emotional support provided. Precautions Behavioral Health Precautions: Suicide precautions (01/21/242022) Summary of Maribell's problems and interventions: (See flowsheets for more detailed summary) Plan of Care Reviewed with: patient (01/21/242022) Patient's Individualized Goal: sleep (01/21/242022) Maribell's response to interventions this shift: Accepting Maribell's perception of symptoms and progress toward goals: improved Discharge follow up plan reviewed/discussed during the 1:1 shift interview: no Does the patient have a legal guardian? No If yes, describe: Does the patient have a Power of Concrete Pump Operator Helper? No If yes, describe: Legal Status: Voluntary MENTAL HEALTH ASSESSMENT: Behavior: Sedentary;Isolative;Cooperative;Poor eye contact (01/21/242022) Observed Emotional State: accepting;calm;cooperative;quiet;withdrawn (01/21/242022) Verbalized Emotional State: anxiety;depression;withdrawn (01/21/242022) Speech: No problems observed (01/21/242022) Thought Processes: Logical (01/21/242022) Social Judgement: Difficulty in problem solving (01/21/242022) Appearance: Appears stated age (01/21/242022) Risk Assessment 1. Have you wished you were or wished you could go to sleep and not wake up?: No (01/21/242022) 2. Have you actually had any thoughts of killing yourself?: No (01/21/242022) 6. Have you ever done anything, started to do anything, or prepared to do anything to end your life?: No (01/21/242022) Suicide Risk and Interventions: Low (01/19/24 0845) Depressive Symptoms Symptoms: Change in energy level;Isolative;Loss of interest (01/21/242022) Describe: 10/30 (01/21/242022) Anxiety Symptoms Symptoms: Generalized (01/21/242022) Describe: 12/30 (01/21/242022) Manic Symptoms Symptoms: No problems reported or observed (01/21/242022) Psychotic Symptoms Hallucination Type: No problems reported or observed (01/21/242022) Delusion Type: No problems reported or observed (01/21/242022) Homicidal Ideation Violence-Risk Towards Others In the past month have you had thoughts of harming another person?: No (01/21/242022) Broset Broset Violence Checklist Confusion - Appears obviously confused and disoriented. May be unaware of person, place, time.: No (01/21/242022) Irritability - Easily annoyed or angered. Unable to tolerate the presence of others.: No (01/21/242022) Boisterous - Behavior is overtly loud or noisy. For example slams doors, shouts out when talking etc.: No (01/21/242022) Verbal Threat - A verbal outburst which is more than just a raised voice and where there is a definite intent to intimidate or threaten another person. For example, verbal attacks, abuse, name-calling, verbally neutral comments uttered in a snarling aggressive manner.: No (01/21/242022) Physical Attacks - Where there is a definite intent to physically threaten another person. For example, the taking of an aggressive stance, the grabbing of another person???s clothing, the raising ofan arm or leg, making a fist or modeling a head-butt directed at another. : No (01/21/242022) Attacks on Objects - An attack directed at an object and not an individual. For example, the indiscriminant throwing of an object, banging or smashing windows, kicking, banging or head butting an object or the smashing of furniture. : No (01/21/242022) Total: 0 (01/21/242022) CHELE Behaviors Assessing Overt Behavior for CHELE: None noted (01/21/242022) Risk Lead Communication Risk Lead Name: n/a Update provided: [] Yes [] No Summary of conversation: n/a Any concerns (if yes, please explain): n/a Voicemail left for personal care home administrator: [] N/A [] No [] Yes: Date/Time n/a Medical Issues/New Medication Teaching Maribell was informed about benefits and any potential clinically significant side effects or other concerns regarding the administration of the medication he was given. See separate notes for any prn medications provided during shift. * Care Plan - Chris Moy RN - 01/22/2024 1:28 AM CDT Problem: Anxiety Goal: Gas Line Repairer:Maintain anxiety at a functional level as evidenced by absence of disabling behaviors in response to stress by discharge. Outcome: Variance Problem: Depressed Mood Goal: Halfway: Demonstrates reduced symptoms of depression and improved level of functioning by discharge. Outcome: Variance Problem: Musculoskeletal Goal: Achieve optimal musculoskeletal function by discharge or maintain baseline function Outcome: Variance Problem: Discharge Planning Goal: Identify discharge needs upon admission and through discharge Description: Outcome: Variance * Care Plan - Sue Christopher RN - 01/21/2024 2:05 PM CDT Shift Narrative: Met with pt in the room. Pt is alert, awake and oriented x 3. Pt endorsed anxiety and depression, rating at 2/10 with 10 being the worst. Pt denies S/I,H/I nor A/V/H. Pt is meal and med compliant. Pt took a shower however did not change scrubs. Clean scrubs and socks provided and instructed pt to change them when he gets up. Voiced understanding. Pt did not attend group and mostly isolative in the room except meal times. Pt denies c/o at this ochoa. Pt agrees to seek out staff if anything changes. Will continue to provide support as needed. Precautions Behavioral Health Precautions: Suicide precautions (01/21/24857) Summary of Maribell's problems and interventions: (See flowsheets for more detailed summary) Plan of Care Reviewed with: patient (01/21/24857) Patient's Individualized Goal: to maintain a good mood (01/21/24857) Maribell's response to interventions this shift: Accepting Maribell's perception of symptoms and progress toward goals: improved Discharge follow up plan reviewed/discussed during the 1:1 shift interview: no Does the patient have a legal guardian? No If yes, describe: Does the patient have a Power of Concrete Pump Operator Helper? No If yes, describe: Legal Status: Voluntary MENTAL HEALTH ASSESSMENT: Behavior: Calm;Isolative;Sedentary (01/21/24857) Observed Emotional State: calm;cooperative;quiet (01/21/24857) Verbalized Emotional State: anxiety;depression;flat effect (01/21/24857) Speech: No problems observed (01/21/24857) Thought Processes: Logical (01/21/24857) Social Judgement: Difficulty in problem solving (01/21/24857) Appearance: Disheveled;Poor hygiene (01/21/24857) Risk Assessment 1. Have you wished you were or wished you could go to sleep and not wake up?: No (01/21/24857) 2. Have you actually had any thoughts of killing yourself?: No (01/21/24857) 6. Have you ever done anything, started to do anything, or prepared to do anything to end your life?: No (01/21/24857) Suicide Risk and Interventions: Low (01/19/24844) Depressive Symptoms Symptoms: Change in energy level;Loss of interest;Isolative (01/21/24857) Describe: rates 09/01, pt is isolative in he room (01/21/24857) Anxiety Symptoms Symptoms: Generalized (01/21/24857) Describe: rates 09/01 (01/21/24857) Manic Symptoms Symptoms: No problems reported or observed (01/21/24857) Psychotic Symptoms Hallucination Type: No problems reported or observed (01/21/24857) Delusion Type: No problems reported or observed (01/21/24857) Homicidal Ideation Violence-Risk Towards Others In the past month have you had thoughts of harming another person?: No (01/21/24857) Broset [facility] Violence Checklist Confusion - Appears obviously confused and disoriented. May be unaware of person, place, time.: No (01/21/24857) Irritability - Easily annoyed or angered. Unable to tolerate the presence of others.: No (01/21/24857) Boisterous - Behavior is overtly loud or noisy. For example slams doors, shouts out when talking etc.: No (01/21/24857) Verbal Threat - A verbal outburst which is more than just a raised voice and where there is a definite intent to intimidate or threaten another person. For example, verbal attacks, abuse, name-calling, verbally neutral comments uttered in a snarling aggressive manner.: No (01/21/24857) Physical Attacks - Where there is a definite intent to physically threaten another person. For example, the taking of an aggressive stance, the grabbing of another person???s clothing, the raising ofan arm or leg, making a fist or modeling a head-butt directed at another. : No (01/21/24857) Attacks on Objects - An attack directed at an object and not an individual. For example, the indiscriminant throwing of an object, banging or smashing windows, kicking, banging or head butting an object or the smashing of furniture. : No (01/21/24857) Total: 0 (01/21/24857) CHELE Behaviors Assessing Overt Behavior for CHELE: None noted (01/21/24857) Risk Lead Communication Risk Lead Name: Update provided: [] Yes [] No Summary of conversation: Any concerns (if yes, please explain): Voicemail left for personal care home administrator: [] N/A [] No [] Yes: Date/Time Medical Issues/New Medication Teaching Maribell was informed about benefits and any potential clinically significant side effects or other concerns regarding the administration of the medication he was given. See separate notes for any prn medications provided during shift. Problem: Suicide Risk/Attempt Goal: Halfway: Reduction of suicidal thoughts and absence of suicidal behavior throughout admission and establish a safety plan by discharge. Outcome: Variance Problem: Anxiety Goal: Gas Line Repairer:Maintain anxiety at a functional level as evidenced by absence of disabling behaviors in response to stress by discharge. Outcome: Variance Problem: Depressed Mood Goal: Halfway: Demonstrates reduced symptoms of depression and improved level of functioning by discharge. Outcome: Variance Problem: Musculoskeletal Goal: Achieve optimal musculoskeletal function by discharge or maintain baseline function Outcome: Variance Problem: Discharge Planning Goal: Identify discharge needs upon admission and through discharge Description: Outcome: Variance * Care Plan - Trish Osullivan MSW - 01/21/2024 11:27 AM CDT Problem: Discharge Planning Goal: Identify discharge needs upon admission and through discharge Description: Outcome: Progressing AVTAR called Isadora De La Rosa ([facility]) ([phone]). Isadora reports that pt was staying at [facility] prior to admission. Isadora reports that she does not have any contacts through there. AVTAR agreeable. Isadora denied additional questions or information at this time. AVTAR informed Isadora that AVTAR will call on day of discharge. Isadora agreeable. AVTAR requested unit [facility] to assist pt with getting a number out for the Sober Living. Unit [facility] agreeable. RN informed AVTAR that pt reports he was staying at the following address: [address] [place] [id number]. SW to verify when speaking with sober living. Unit [facility] provided Jyoti ([facility]) ([phone]) to AVTAR. AVTAR called Jyoti ([facility]) ([phone]) to confirm that pt can return and verify address. AVTAR unable to reach. AVTAR LVM and call back number. * Care Plan - Carmen Barakat RN - 01/20/2024 9:01 PM CDT Problem: Anxiety Goal: Halfway:Maintain anxiety at a functional level as evidenced by absence of disabling behaviors in response to stress by discharge. Outcome: Variance Flowsheets (Taken 01/20/20242005) Anxiety Short Term Goals: By end of shift Verbalizes physical symptoms of anxiety Verbalizes behaviors that become evident as anxiety arises Demonstrates strategies to interrupt escalation of anxiety Anxiety Interventions: Identification of anxiety symptoms facilitated Identification of anxiety triggers facilitated Medicated as prescribed for elevated levels of anxiety Healthy sleep patterns and routine encouraged Sleep aids utilized as needed Positive reinforcement provided Emotional support provided Problem: Suicide Risk/Attempt Goal: Gas Line Repairer: Reduction of suicidal thoughts and absence of suicidal behavior throughout admission and establish a safety plan by discharge. Outcome: Progressing Problem: Depressed Mood Goal: Halfway: Demonstrates reduced symptoms of depression and improved level of functioning by discharge. Outcome: Progressing * Care Plan - Carmen Barakat RN - 01/20/2024 8:06 PM CDT During this shift, Maribell was given the prn medication haldol and benadryl orally for agitation and hallucinations, as demonstrated by the following behavior: pt stated that he is scared because he is seeing people that are not there and he is having agitation (See MAR for administration time.) Karl roximately 1 hour after medication administration, Mariblel appeared or reported the following: Maribell is resting quietly in bed. * Care Plan - Karey Ojeda RN - 01/20/2024 6:21 PM CDT This nurse noticed EPS/TD s/s while pt was eating. Cogentin was given. See MAR. personal lines agent notified. Will repeat VS at 1999 and continue to monitor. * Care Plan - Karey Ojeda RN - 01/20/2024 5:55 PM CDT During this shift, Maribell was given the prn medication cogentin po for eps, as demonstrated by thefollowing behavior: pt can be seen in day room making odd repetitive mouth movements,expressing increase in anxiety, restless (See MAR for administration time.) Approximately 1 hour after medication administration, Maribell appeared or reported the following: resting in bed. States he is feeling better. * Care Plan - Karey Ojeda RN - 01/20/2024 9:19 AM CDT Shift Narrative: Maribell is calm and cooperative upon assessment. Says he slept good. Appetite is good. Expresses having anxiety and depression. Rates 2/10 for each. Denies SI/HI, V/A BAY. Med compliant. Encouraging for him to shower today and attend group. Isolates to room other than to come out to eat. Quiet and keeps to himself. Behavior is appropriate. Precautions Behavioral Health Precautions: Suicide precautions (01/20/24899) Summary of Maribell's problems and interventions: (See flowsheets for more detailed summary) Plan of Care Reviewed with: patient (01/19/241912) Patient's Individualized Goal: to shower (01/20/24899) Maribell's response to interventions this shift: Accepting Maribell's perception of symptoms and progress toward goals: improved Discharge follow up plan reviewed/discussed during the 1:1 shift interview: yes Does the patient have a legal guardian? No If yes, describe: Does the patient have a Power of Concrete Pump Operator Helper? No If yes, describe: Legal Status: Voluntary MENTAL HEALTH ASSESSMENT: Behavior: Calm;Fidgeting;Isolative;Cooperative;Guarded;Poor eye contact (01/20/24899) Observed Emotional State: anxious;apprehensive;calm;cooperative;withdrawn;quiet (01/20/24899) Verbalized Emotional State: anxiety;depression;flat effect;withdrawn (01/20/24899) Speech: No problems observed (01/20/24899) Thought Processes: Logical (01/20/24899) Social Judgement: Difficulty in problem solving (01/20/24899) Appearance: Appears stated age;Poor hygiene (01/20/24899) Risk Assessment 1. Have you wished you were or wished you could go to sleep and not wake up?: Yes (01/19/24844) 2. Have you actually had any thoughts of killing yourself?: No (01/20/24899) 6. Have you ever done anything, started to do anything, or prepared to do anything to end your life?: No (01/20/24899) Suicide Risk and Interventions: Low (01/19/24844) Depressive Symptoms Symptoms: Isolative (01/20/24899) Describe: pt isolates room and rates depression 2/ (01/20/24899) Anxiety Symptoms Symptoms: Generalized (01/20/24899) Describe: rates / (01/20/24899) Manic Symptoms Symptoms: No problems reported or observed (01/20/24899) Psychotic Symptoms Hallucination Type: No problems reported or observed (01/20/24899) Delusion Type: No problems reported or observed (01/20/24899) Homicidal Ideation Violence-Risk Towards Others In the past month have you had thoughts of harming another person?: No (01/20/24899) Broset Broset Violence Checklist Confusion - Appears obviously confused and disoriented. May be unaware of person, place, time.: No (01/20/24899) Irritability - Easily annoyed or angered. Unable to tolerate the presence of others.: No (01/20/24899) Boisterous - Behavior is overtly loud or noisy. For example slams doors, shouts out when talking etc.: No (01/20/24899) Verbal Threat - A verbal outburst which is more than just a raised voice and where there is a definite intent to intimidate or threaten another person. For example, verbal attacks, abuse, name-calling, verbally neutral comments uttered in a snarling aggressive manner.: No (01/20/24899) Physical Attacks - Where there is a definite intent to physically threaten another person. For example, the taking of an aggressive stance, the grabbing of another person???s clothing, the raising ofan arm or leg, making a fist or modeling a head-butt directed at another. : No (01/20/24899) Attacks on Objects - An attack directed at an object and not an individual. For example, the indiscriminant throwing of an object, banging or smashing windows, kicking, banging or head butting an object or the smashing of furniture. : No (01/20/24899) Total: 0 (01/20/24899) CHELE Behaviors Assessing Overt Behavior for CHELE: None noted (01/20/24899) Risk Lead Communication Risk Lead Name: N/A Update provided: [] Yes [x] No Summary of conversation: Any concerns (if yes, please explain): Voicemail left for personal care home administrator: [] N/A [] No [] Yes: Date/Time Medical Issues/New Medication Teaching Maribell was informed about benefits and any potential clinically significant side effects or other concerns regarding the administration of the medication he was given. See separate notes for any prn medications provided during shift. * Care Plan - Karey Ojeda RN - 01/20/2024 9:19 AM CDT Problem: Anxiety Goal: Halfway:Maintain anxiety at a functional level as evidenced by absence of disabling behaviors in response to stress by discharge. Outcome: Variance Problem: Depressed Mood Goal: Halfway: Demonstrates reduced symptoms of depression and improved level of functioning by discharge. Outcome: Variance Problem: Suicide Risk/Attempt Goal: Halfway: Reduction of suicidal thoughts and absence of suicidal behavior throughout admission and establish a safety plan by discharge. Outcome: Progressing Problem: Musculoskeletal Goal: Achieve optimal musculoskeletal function by discharge or maintain baseline function Outcome: Progressing * Care Plan - Carmen Barakat RN - 01/20/2024 6:24 AM CDT Maribell remained free from harm throughout shift. No signs or reports of discomfort or distress. Maribell maintained on rounds every 15 minutes for safety. Staff will continue to monitor Maribell for safety and provide support as needed. Sleep Hours Night (6p-6a): 8.5 (01/20/24599) Sleep/Rest/Relaxation: sleep interrupted (01/20/24599) * Care Plan - Carmen Barakat RN - 01/19/2024 8:13 PM CDT Problem: Depressed Mood Goal: Gas Line Repairer: Demonstrates reduced symptoms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 01/17/2024 4:37 PM CDT LIPID PANEL Routine 01/17/2024 4:37 PM CDT COMPREHENSIVE METABOLIC PANEL Stat 01/17/2024 4:37 PM CDT documented in this encounter Results * COMPREHENSIVE METABOLIC PANEL (01/18/2024 2:45 PM CDT) [facility] SODIUM 136 136 - 145 mmol/L 01/18/2024 4:22 PM CDT [facility] POTASSIUM 4.1 3.5 - 5.0 mmol/L 01/18/2024 4:22 PM CDT [facility] CHLORIDE 100 98 - 107 mmol/L 01/18/2024 4:22 PM CDT [facility] CO2 25 22 - 29 mmol/L 01/18/2024 4:22 PM CDT [facility] CALCIUM 10.1 8.6 - 10.2 mg/dL 01/18/2024 4:22 PM CDT [facility] BUN 17 6 - 20 mg/dL 01/18/2024 4:22 PM CDT [facility] CREATININE 0.81 0.67 - 1.17 mg/dL 01/18/2024 4:22 PM CDT [facility] GLUCOSE 80 74 - 99 mg/dL 01/18/2024 4:22 PM CDT [facility] TOTAL PROTEIN 8.0 6.7 - 8.6 g/dL 01/18/2024 4:22 PM CDT [facility] ALBUMIN 4.4 3.5 - 5.2 g/dL 01/18/2024 4:22 PM CDT [facility] BILIRUBIN TOTAL 0.4 0.3 - 1.2 mg/dL 01/18/2024 4:22 PM CDT [facility] ALKALINE PHOSPHATASE 81 40 - 129 U/L 01/18/2024 4:22 PM CDT [facility] - [facility] AST 35 <41 U/L 01/18/2024 4:22 PM CDT [facility] ALT 18 <42 U/L 01/18/2024 4:22 PM CDT [facility] GFR >60 >=60 mL/min/1.7 3 sq meter 01/18/2024 4:22 PM CDT [facility] Comment:eGFR calculated with 2020 CKD-EPI equation. Vegetarian diet, extremely high or low muscle mass, and may affect results. Cystatin C with Glomerular Filtration Rate is a suitable alternative for these patients. ANION GAP 11 8 - 16 mmol/L 01/18/2024 4:22 PM T [facility] Blood Venipuncture / Unknown 01/18/2024 2:45 PM CDT 01/18/2024 3:40 PM CDT [facility] LABORATORY [facility] - 01/18/2024 4:22 PM CDT Samples containing indocyanine green cause interferences on Total and/or Direct Bilirubin and must not be measured. Laquita Mcrae MD CHEMISTRY ORDERABLES Final Resul t [facility]# [id number] [address] [place] [place] [address] * (ABNORMAL) CBC WITH DIFFERENTIAL (01/18/2024 2:45 PM CDT) WBC 6.0 4.0 - 9.8 K/uL 01/18/2024 4:22 PM T [facility] RBC 4.98 4.50 - 5.40 M/uL 01/18/2024 4:22 PM T [facility] HEMOGLOBIN 14.4 13.6 - 16.5 g/dL 01/18/2024 4:22 PM T [facility] HEMATOCRIT 45.2 40.0 - 48.0 % 01/18/2024 4:22 PM T [facility] Comment:Results confirmed by 2nd methodology. MCV 90.8 82.0 - 99.0 fL 01/18/2024 4:22 PM CDT [facility] MCH 28.9 27.2 - 32.6 pg 01/18/2024 4:22 PM CDT [facility] MCHC 31.9 31.5 - 35.5 g/dL 01/18/2024 4:22 PM CDT [facility] RDW 15.5(H) 11.5 - 14.5 % 01/18/2024 4:22 PM CDT [facility] RDW-STDEV 50.6(H) 37.1 - 48.7 fL 01/18/2024 4:22 PM CDT [facility] PLATELETS 174 140 - 350 K/uL 01/18/2024 4:22 PM CDT [facility] MPV 12.4 9.3 - 12.4 fL 01/18/2024 4:22 PM CDT [facility] NEUTROPHILS 49 % 01/18/2024 4:22 PM CDT [facility] LYMPHOCYTES 36 % 01/18/2024 4:22 PM CDT [facility] MONOCYTES 12 % 01/18/2024 4:22 PM CDT [facility] EOSINOPHILS 3 % 01/18/2024 4:22 PM CDT [facility] BASOPHILS 0 % 01/18/2024 4:22 PM CDT [facility] IMMATURE GRANULOCYTES 0 % 01/18/2024 4:22 PM CDT [facility] NEUTROPHIL ABSOLUTE 2.93 1.90 - 7.00 K/uL 01/18/2024 4:22 PM CDT [facility] LYMPHOCYTE ABSOLUTE 2.18 0.70 - 4.50 K/uL 01/18/2024 4:22 PM CDT [facility] MONOCYTE ABSOLUTE 0.69 0.10 - 1.30 K/uL 01/18/2024 4:22 PM CDT [facility] EOSINOPHIL ABSOLUTE 0.17 0.00 - 0.70 K/uL 01/18/2024 4:22 PM CDT [facility] BASOPHILS ABSOLUTE 0.02 0.00 - 0.20 K/uL 01/18/2024 4:22 PM CDT [facility] - [facility] IMMATURE GRANULOCYTES ABSOLUTE 0.02 0.00 - 0.03 K/uL 01/18/2024 4:22 PM CDT [facility] Blood Venipuncture / Unknown 01/18/2024 2:45 PM CDT 01/18/2024 3:40 PM CDT Laquita Mcrae MD HEMATOLOGY ORDERABLES Final Resu lt [facility] [id number] [address] [place] [address] * CT HEAD WO CONTRAST (01/17/2024 7:20 PM CDT) Anatomical Region Laterality Modality Head Computed Tomogra phy 01/17/2024 7:15 PM CDT Impressions 01/17/2024 7:39 PM CDT IMPRESSION: ?? 1. No acute intracranial abnormality on noncontrast CT. ?? DICTATION LOCATION: Location 4 Narrative 01/17/2024 7:[address] HEAD WITHOUT CONTRAST WITH REFORMATTED IMAGES DATE: 01/17/2024 7:20 PM HISTORY: Mental status change, unknown cause. ?? Severe episode of recurrent major depressive disorder, without psychotic features; Bipolar affective disorder, remission status unspecified ?? COMPARISON: 08/11/2019 ?? TECHNIQUE: Helical with reformats. The examination was performed with the adjustment of mA according to the patient size and/or the use of Iterative Reconstruction Technique. Please note that CT is inherently less sensitive than MRI for the evaluation of most intracranial pathology. ?? BRAIN FINDINGS: ?? VENTRICLES: Ventricles are within normal limits. MIDLINE: No midline shift. PARENCHYMA: No territorial loss of hobbs-white matter differentiation or mass effect. No hyperdense parenchymal hemorrhage. EXTRA-AXIAL SPACE: No hyperdense hemorrhage. Patent cisterns. CALVARIUM: Intact calvarium. SINUSES: Normal aeration of paranasal sinuses and mastoid air cells. VASCULAR: No atherosclerotic changes ADDITIONAL: None ?? Procedure Note Niebruegge, Dallas M, MD - 01/17/2024 CT HEAD WITHOUT CONTRAST WITH REFORMATTED IMAGES DATE: 01/17/2024 7:20 PM HISTORY: Mental status change, unknown cause. Severe episode of recurrent major depressive disorder, without psychotic features; Bipolar affective disorder, remission status unspecified COMPARISON: 08/11/2019 TECHNIQUE: Helical with reformats. The examination was performed with the adjustment of mA according to the patient size and/or the use of Iterative Reconstruction Technique. Please note that CT is inherently less sensitive than MRI for the evaluation of most intracranial pathology. BRAIN FINDINGS: VENTRICLES: Ventricles are within normal limits. MIDLINE: No midline shift. PARENCHYMA: No territorial loss of hobbs-white matter differentiation or mass effect. No hyperdense parenchymal hemorrhage. EXTRA-AXIAL SPACE: No hyperdense hemorrhage. Patent cisterns. CALVARIUM: Intact calvarium. SINUSES: Normal aeration of paranasal sinuses and mastoid air cells. VASCULAR: No atherosclerotic changes ADDITIONAL: None IMPRESSION: 1. No acute intracranial abnormality on noncontrast CT. DICTATION LOCATION: Location [address] ORDERABLES Final Resul t * (ABNORMAL) URINALYSIS WITH REFLEX MICROSCOPIC (01/17/2024 7:05 PM CDT) COLOR UA Yellow Pale to Dark Yellow 01/17/2024 7:49 PM CDT [facility] - . [facility] CLARITY UA Clear Clear 01/17/2024 7:49 PM CDT [facility] - . [facility] SPECIFIC GRAVITY UA 1.028 1.003 - 1.035 01/17/2024 7:49 PM CDT [facility] - [facility] PH UA 6.0 5.0 - 8.0 01/17/2024 7:49 PM CDT [facility] - . [facility] LEUKOCYTE ESTERASE UA Negative Negative 01/17/2024 7:49 PM CDT [facility] - . [facility] NITRITE UA Negative Negative 01/17/2024 7:49 PM CDT [facility] - . [facility] PROTEIN UA 1+(A) Negative 01/17/2024 7:49 PM CDT [facility] GLUCOSE UA Negative Negative 01/17/2024 7:49 PM CDT [facility] - [facility] KETONES UA Negative Negative 01/17/2024 7:49 PM CDT [facility] - . [facility] UROBILINOGEN UA 4.0(A) <2.0 mg/dL 7:49 PM CDT [facility] - . [facility] BILIRUBIN UA Negative Negative 01/17/2024 7:49 PM CDT [facility] - . [facility] BLOOD UA Negative Negative 01/17/2024 7:49 PM CDT [facility] - [facility] WBC UA 3-5(A) 0 - 2 /hpf 01/17/2024 7:49 PM CDT [facility] - . [facility] RBC UA 0-2 0 - 2 /hpf 01/17/2024 7:49 PM CDT [facility] - [facility] BACTERIA UA Negative Negative /hpf 01/17/2024 7:49 PM CDT [facility] - [facility] Urine URINE SPECIMEN OBTAINED BY CLEAN CATCH PROCEDURE / Unknown Collection / Unknown 01/17/2024 7:05 PM CDT 01/17/2024 7:26 PM CDT Chas Guallpa DO URINE ORDERABLES Final Resu lt [facility] SERVICES [facility]# [id number] [address] [facility] [address] * (ABNORMAL) DRUG SCREEN, URINE (01/17/2024 7:05 PM CDT) AMPHETAMINE QUAL, URINE Presumptive Positive(A) Negative 01/17/2024 8:09 PM CDT [facility] - [facility] BARBITURATE QUAL, URINE Negative Negative 01/17/2024 8:09 PM CDT [facility] - [facility] BENZODIAZEPINE QUAL, URINE Negative Negative 01/17/2024 8:09 PM CDT [facility] COCAINE QUAL URINE Negative Negative 01/17/2024 8:09 PM CDT [facility] - [facility] OPIATE QUAL, URINE Negative Negative 01/17/2024 8:09 PM CDT [facility] CANNABINOIDS QUAL, URINE Negative Negative 01/17/2024 8:09 PM CDT [facility] PCP QUAL, URINE Negative Negative 8:09 PM T [facility] OXYCODONE QUAL, URINE Negative Negative 01/17/2024 8:09 PM T [facility] METHADONE QUAL, URINE Negative Negative 01/17/2024 8:09 PM T [facility] CREATININE, URINE 272.0 40.0 - 278.0 mg/dL 01/17/2024 8:09 PM [facility] Comment:Reference Range vari es with fluid intake and diet. Urine URINE SPECIMEN OBTAINED BY CLEAN CATCH PROCEDURE / Unknown Collection / Unknown 01/17/2024 7:05 PM CDT 01/17/2024 7:26 PM CDT Narrative [facility] - 01/17/2024 8:09 PM CDT This test is a qualitative screen. The presumptive positive results should not be used for legal purposes. If confirmation of results is desired, the lab must be contacted without delay. Drug ? Ref. Range ?Screening Threshold Amphetamines ?Negative ?500 ng/mL Barbiturates ?Negative ?200 ng/mL Benzodiazepines ? Negative ?100 ng/mL Cannabinoids ?Negative ? 50 ng/mL Cocaine ?Negative ?150 ng/mL Methadone ? Negative ?300 ng/mL Opiates ? Negative ?300 ng/mL Oxycodone ? Negative ?100 ng/mL Phencyclidine ? Negative ? 25 ng/mL ? Chas Guardado Saloni DO URINE ORDERABLES Final Resu lt Performing Organization Address [facility] Co de Phone Number [facility] [employer] [facility]# [id number] [address] [place] [address] * AMMONIA LEVEL (01/17/2024 6:10 PM CDT) AMMONIA 53.0 16.0 - 60.0 umol/L 01/17/2024 6:49 PM CDT [facility] Blood, venous Venipuncture / Unknown 01/17/2024 6:10 PM CDT 01/17/2024 6:15 PM CDT Chas Geo Guallpa DO CHEMISTRY ORDERABLES Final Result Performing Organization Address [facility] Co de Phone Number [facility] [employer] [facility]# [id number] [address] [place] [address] * POC LACTIC ACID (01/17/2024 4:44 PM CDT) LACTIC ACID POC 1.4 <=2.0 mmol/L 01/17/2024 4:44 PM CDT [facility] SPECIMEN SOURCE, GASES POC Venous 01/17/2024 4:44 PM CDT [facility] COMMENT, GASES POC Responsible Clinical Caregiver notified 01/17/2024 4:44 PM CDT [facility] [employer] [facility] Blood 01/17/2024 4:44 PM CDT 01/17/2024 4:45 PM CDT Fernando Menon MD POINT OF CARE TESTING Final R esult [facility]ORY SERVICES [facility]# [id number] [address] [place] [address] * (ABNORMAL) BLOOD GAS VENOUS (01/17/2024 4:44 PM CDT) [facility] PH BLOOD POC 7.40 7.32 - 7.43 01/17/2024 4:44 PM CDT [facility] PCO2 POC 43 38 - 50 mm Hg 01/17/2024 4:44 PM CDT [facility] PO2 POC 49(H) 25 - 40 mm Hg 01/17/2024 4:44 PM CDT [facility] SERVICES [facility] HCO3 (CALC) POC 27 22 - 29 mmol/L 01/17/2024 4:44 PM CDT [facility] HEMOGLOBIN POC 14.7 13.6 - 16.5 g/dL 01/17/2024 4:44 PM CDT [facility] O2 SATURATION POC 86(H) 40 - 70 % 01/17/2024 4:44 PM CDT [facility] HEMATOCRIT POC 44 40 - 48 % 01/17/2024 4:44 PM CDT [facility] Comment:Estimated Value PH TEMP CORRECT 7.40 7.32 - 7.43 01/17/2024 4:44 PM CDT [facility] PCO2 TEMP CORRECT 43 38 - 50 mm Hg 01/17/2024 4:44 PM CDT [facility] - . [facility] PO2 TEMP CORRECT 49(H) 25 - 40 mm Hg 01/17/2024 4:44 PM CDT [facility] SPECIMEN SOURCE, GASES POC Venous 01/17/2024 4:44 PM CDT [facility] COMMENT, GASES POC Responsible Clinical Caregiver notified 01/17/2024 4:44 PM CDT [facility] Blood, venous 01/17/2024 4:4 4 PM CDT 01/17/2024 4:45 PM CDT Fernando Menon MD ABG ORDERABLES Final Result [facility] CLIA# [id number] [address] [facility] [place] [address] [place] [address] * (ABNORMAL) LIPID PANEL (01/17/2024 4:37 PM CDT) CHOLESTEROL 129 <200 mg/dL 01/18/2024 3:15 PM CDT [facility] [employer] [facility] TRIGLYCERIDE 43 <150 mg/dL 01/18/2024 3:15 PM CDT [facility] [employer] [facility] HDL 35(L) 40 - 59 mg/dL 01/18/2024 3:15 PM CDT [facility] [employer] [facility] LDL CALCULATED 85 <100 mg/dL 01/18/2024 3:15 PM CDT [facility] [employer] [facility] NON-HDL CHOLESTEROL 94 <130 mg/dL 01/18/2024 3:15 PM CDT [facility] [employer] [facility] Blood Venipuncture / Unknown 01/17/2024 4:37 PM CDT 01/17/2024 4:46 PM CDT Narrative [facility] - . [facility] - 01/18/2024 3:15 PM CDT TOTAL CHOLESTEROL ??mg/dL ??Desirable <200 ??Borderline high 200-239 ??High >=240 TRIGLYCERIDES ??mg/dL ??Normal <150 ??Borderline high 150-199 ??High 200-499 ??Very high >=500 HDL CHOLESTEROL ??mg/dL ??Low <40 ??Normal 40-59 ??Desirable >=60 NON HDL CHOLESTEROL mg/dL ??Optimal <130 ??Near Optimal 130-159 ??Borderline High 160-189 ??Very High >=190 CALCULATED LDL mg/dL ??LDL <70, OPTIMAL if have Atherosclerotic cardiovascular disease (ASCVD) ??or intermediate or higher (>7.5%) 10 year risk of ASCVD including most adults ??with diabetes. ??LDL <100, Optimal in adult patients with low (<7.5%) 10 year ASCVD risk ??LDL 100-160, Suboptimal ??LDL >160, High ??LDL >190, Very high ATPIII Guidelines Reference Ranges for Lipid Panels (NCEP/AMA) . Laquita Mcrae MD CHEMISTRY ORDERABLES Final Resul t Performing Organization Address City/[facility]/ZIP Co de Phone Number [facility] [employer] [facility]# [id number] [address] [place] [address] * HEMOGLOBIN A1C (01/17/2024 4:37 PM CDT) Pathologist [facility] HEMOGLOBIN A1C 5.6 <5.7 % 01/18/2024 3:09 PM CDT [facility] [employer] [facility] EST. AVG GLUCOSE, A1C 114 mg/dL 01/18/2024 3:09 PM CDT [facility] [employer] [facility] Blood Venipuncture / Unknown 01/17/2024 4:37 PM CDT 01/17/2024 4:46 PM CDT Narrative [facility] - 01/18/2024 3:09 PM CDT HGB A1C INTERPRETATION NORMAL: ? <5.7% PRE-DIABETES: 5.7 - 6.4% DIABETES: ? 6.5% OR GREATER Laquita Mcrae MD CHEMISTRY ORDERABLES Final Resul t Performing Organization Address [facility] Co de Phone Number [facility] [employer] [facility]# [id number] [address] [place] [address] * TSH (01/17/2024 4:37 PM CDT) Pathologist [facility] TSH 0.31 0.27 - 4.20 uIU/mL 01/17/2024 5:37 PM CDT [facility] [employer] [facility] Blood Venipuncture / Unknown 01/17/2024 4:37 PM CDT 01/17/2024 4:46 PM CDT Chas Guallpa DO CHEMISTRY ORDERABLES Final Result [facility] - [facility] CLIA# [id number] [address] [facility] [place] [address] * (ABNORMAL) CBC WITH DIFFERENTIAL (01/17/2024 4:37 PM CDT) [facility] WBC 3.2(L) 4.0 - 9.8 K/uL 01/17/2024 4:56 PM CDT [facility] LABORATORY SERVICES - [facility] RBC 5.35 4.50 - 5.40 M/uL 01/17/2024 4:56 PM CDT [facility]ORATORY SERVICES - [facility] HEMOGLOBIN 14.0 13.6 - 16.5 g/dL 01/17/2024 4:56 PM CDT [facility] LABORATORY SERVICES - [facility] HEMATOCRIT 45.0 40.0 - 48.0 % 01/17/2024 4:56 PM CDT [facility] LABORATORY SERVICES - . [facility] MCV 84.1 82.0 - 99.0 fL 01/17/2024 4:56 PM CDT [facility]ORY SERVICES - . [facility] MCH 26.2(L) 27.2 - 32.6 pg 01/17/2024 4:56 PM CDT [facility] LABORATORY SERVICES - [facility] MCHC 31.1(L) 31.5 - 35.5 g/dL 01/17/2024 4:56 PM CDT [facility] LABORATORY SERVICES - . [facility] RDW 14.3 11.5 - 14.5 % 01/17/2024 4:56 PM CDT [facility] LABORATORY SERVICES - . [facility] RDW-STDEV 43.7 37.1 - 48.7 fL 01/17/2024 4:56 PM CDT [facility] LABORATORY SERVICES - . [facility] PLATELETS 297 140 - 350 K/uL 01/17/2024 4:56 PM CDT [facility] - . [facility] MPV 9.8 9.3 - 12.4 fL 01/17/2024 4:56 PM CDT [facility] - [facility] NEUTROPHILS 30 % 01/17/2024 4:56 PM CDT [facility] - [facility] LYMPHOCYTES 54 % 01/17/2024 4:56 PM CDT [facility] MONOCYTES 10 % 01/17/2024 4:56 PM CDT [facility] EOSINOPHILS 6 % 01/17/2024 4:56 PM CDT [facility] - . [facility] BASOPHILS 1 % 01/17/2024 4:56 PM CDT [facility] - . [facility] IMMATURE GRANULOCYTES 0 % 01/17/2024 4:56 PM CDT [facility] - . [facility] NEUTROPHIL ABSOLUTE 0.96(L) 1.90 - 7.00 K/uL 01/17/2024 4:56 PM CDT [facility] - . [facility] LYMPHOCYTE ABSOLUTE 1.75 0.70 - 4.50 K/uL 01/17/2024 4:56 PM CDT [facility] - . [facility] MONOCYTE ABSOLUTE 0.31 0.10 - 1.30 K/uL 01/17/2024 4:56 PM CDT [facility] - . [facility] EOSINOPHIL ABSOLUTE 0.18 0.00 - 0.70 K/uL 01/17/2024 4:56 PM CDT [facility] - . [facility] BASOPHILS ABSOLUTE 0.02 0.00 - 0.20 K/uL 01/17/2024 4:56 PM CDT [facility] - . [facility] IMMATURE GRANULOCYTES ABSOLUTE 0.00 0.00 - 0.03 K/uL 01/17/2024 4:56 PM CDT [facility] - [facility] Blood Venipuncture / Unknown 01/17/2024 4:37 PM CDT 01/17/2024 4:46 PM CDT Chas Guallpa DO HEMATOLOGY ORDERABLES Final Result [facility] - [facility] CLIA# [id number] [facility] [place] [address] * (ABNORMAL) COMPREHENSIVE METABOLIC PANEL (01/17/2024 4:37 PM CDT) [facility] SODIUM 134(L) 136 - 145 mmol/L 01/17/2024 5:30 PM CDT [facility] - . [facility] POTASSIUM 3.8 3.5 - 5.0 mmol/L 01/17/2024 5:30 PM CDT [facility] CHLORIDE 100 98 - 107 mmol/L 01/17/2024 5:30 PM CDT [facility] CO2 23 22 - 29 mmol/L 01/17/2024 5:30 PM CDT [facility] - [facility] CALCIUM 9.1 8.6 - 10.2 mg/dL 01/17/2024 5:30 PM CDT [facility] - [facility] BUN 12 6 - 20 mg/dL 01/17/2024 5:30 PM T [facility] - . [facility] CREATININE 0.89 0.67 - 1.17 mg/dL 01/17/2024 5:30 PM T [facility] - . [facility] GLUCOSE 92 74 - 99 mg/dL 01/17/2024 5:30 PM T [facility] - . [facility] TOTAL PROTEIN 7.8 6.7 - 8.6 g/dL 01/17/2024 5:30 PM T [facility] - . [facility] ALBUMIN 3.9 3.5 - 5.2 g/dL 01/17/2024 5:30 PM CDT [facility] - . [facility] BILIRUBIN TOTAL 0.5 0.3 - 1.2 mg/dL 01/17/2024 5:30 PM T [facility] - . [facility] ALKALINE PHOSPHATASE 74 40 - 129 U/L 01/17/2024 5:30 PM T [facility] - . [facility] AST 21 <41 U/L 01/17/2024 5:30 PM CDT [facility] - . [facility] ALT 15 <42 U/L 01/17/2024 5:30 PM CDT [facility] - . [facility] GFR >60 >=60 mL/min/1.7 3 sq meter 01/17/2024 5:30 PM T [facility] - [facility] Comment:eGFR calculated with 2020 CKD-EPI equation. Vegetarian diet, extremely high or low muscle mass, and may affect results. Cystatin C with Glomerular Filtration Rate is a suitable alternative for these patients. ANION GAP 11 8 - 16 mmol/L 01/17/2024 5:30 PM CDT [facility] Blood Venipuncture / Unknown 01/17/2024 4:37 PM CDT 01/17/2024 4:46 PM CDT Narrative [facility] - 01/17/2024 5:30 PM CDT Samples containing indocyanine green cause interferences on Total and/or Direct Bilirubin and must not be measured. us Chas Guallpa DO CHEMISTRY ORDERABLES Final Result [facility] CLIA# [id number] [address] [place] [address] documented in this encounter Visit Diagnoses Diagnosis Bipolar disorder, current episode depressed, severe- Primary Severe episode of recurrent major depressive disorder, without psychotic features Bipolar affective disorder, remission status unspecified Suicidal ideations Suicidal ideation HIV infection Asymptomatic human immunodeficiency virus (HIV) infection status RENEE (generalized anxiety disorder) Generalized anxiety disorder Hypersomnolence Hypersomnia, unspecified Methamphetamine abuse Nondependent amphetamine or related acting sympathomimetic abuse, unspecified documented in this encounter Administered Medications Inactive Administered Medications - up to 3 most recent administrations Medication Order MAR Action Action Date Dose Rate Site acetaminophen (TYLENOL) tablet 650 mg 650 mg, Oral, EVERY 6 HOURS PRN, Starting on Sun01/18/24 at 1436, Until Sun01/25/24 at 1411, Other (See Comment), See Admin Instructions, Routine aluminum - magnesium - simethicone (MYLANTA) 200-200-20 mg/5 mL oral suspension 30 mL 30 mL, Oral, EVERY 6 HOURS PRN, Starting on Sun01/18/24 at 1435, Until Sun01/25/24 at 1411, Other (See Comment), GI Upset, Routine ARIPiprazole (ABILIFY) tablet 10 mg 10 mg, Oral, DAILY, First dose (after last modification) on Sun01/22/24 at 1800, Until Discontinued, Routine Given 01/25/2024 8:41 AM CDT 10 mg Given 01/24/2024 9:45 AM CDT 10 mg Given 01/23/2024 8:41 AM CDT 10 mg benztropine (COGENTIN) injection 1 mg 1 mg, IM, EVERY 12 HOURS PRN, Starting on Sun01/18/24 at 1435, Until Sun01/25/24 at 1411, Other (See Comment), EPS Symptoms: dystonia, parkinsonisms, or tardive dyskinesia, Routine benztropine (COGENTIN) tablet 1 mg 1 mg, Oral, EVERY 12 HOURS PRN, Starting on Sun01/18/24 at 1435, Until Sun01/25/24 at 1411, Other (See Comment), EPS Symptoms: dystonia, parkinsonisms, or tardive dyskinesia, Routine Given 01/20/2024 5:48 PM CDT 1 mg lmjnrriautm-aeepjfnixpnrr-xbycdsbqs alafenam (BIKTARVY) 50-200-25 mg per tablet 1 Tablet 1 Tablet, Oral, DAILY, First dose on Sun01/18/24 at 0800, Until Discontinued, Routine, Previous Med: bcstrobwlpm-oanyxvaqmombn-wilmvlrmi alafenam (Biktarvy) 50-200-25 mg Tablet - Orig Sig - Take 1 Tablet by mouth daily. Given 01/25/2024 8:41 AM CDT 1 T ablet Given 01/24/2024 9:45 AM CDT 1 Tablet Given 01/23/2024 8:40 AM CDT 1 Tablet diphenhydrAMINE (BENADRYL) injection 50 mg 50 mg, IM, EVERY 6 HOURS PRN, Starting on 01/19/24 at 0858, Until Sun01/25/24 at 1411, Other (See Comment), extrapyramidal symptom prevention, Routine diphenhydrAMINE (BENADRYL) tablet 50 mg 50 mg, Oral, EVERY 4 HOURS PRN, Starting on Sun01/19/24 at 0859, Until Sun01/25/24 at 1411, Restlessness, Agitation, Routine Given 01/20/2024 8:06 PM CDT 50 mg doxepin (SINEquan) capsule 25 mg 25 mg, Oral, DAILY AT BEDTIME, First dose (after last modification) on 01/19/24 at 2100, Until Discontinued, Routine, Previous Med: doxepin (SINEquan) 25 mg capsule - Orig Sig - Take 25 mg by mouth see administration instructions.Indications:insomnia Given 01/25/2024 12:36 AM CDT 25 mg Given 01/23/2024 8:34 PM CDT 25 mg Given 01/22/2024 9:20 PM CDT 25 mg DULoxetine (CYMBALTA) capsule 60 mg 60 mg, Oral, DAILY, First dose on 01/19/24 at 0915, Until Discontinued, Routine, Previous Med: DULoxetine (CYMBALTA) 60 mg Capsule, Delayed Release(E.C.) - Orig Sig - Take 1 Capsule (60 mg) by mouth daily. Given 01/25/2024 8:41 AM CDT 60 mg Given 01/24/2024 9:45 AM CDT 60 mg Given 01/23/2024 8:41 AM CDT 60 mg haloperidoL (HALDOL) tablet 5 mg 5 mg, Oral, EVERY 4 HOURS PRN, Starting on 01/19/24 at 0859, Until Sun01/25/24 at 1411, Agitation, Routine Given 01/20/2024 8:06 PM CDT 5 mg haloperidol lactate (HALDOL) injection 5 mg 5 mg, IM, EVERY 6 HOURS PRN, Starting on 01/19/24 at 0858, Until Sun01/25/24 at 1411, Other (See Comment), agitated psychosis, Routine hydrOXYzine HCL (ATARAX) tablet 50 mg 50 mg, Oral, EVERY 6 HOURS PRN, Starting on 01/19/24 at 0859, Until Sun01/25/24 at 1411, Anxiety, Routine Given 01/25/2024 12:36 AM CDT 50 mg Given 01/23/2024 8:34 PM CDT 50 mg Given 01/22/2024 9:20 PM CDT 50 mg ibuprofen (MOTRIN) tablet 400 mg 400 mg, Oral, EVERY 6 HOURS PRN, Starting on Sun01/18/24 at 1436, Until Sun01/25/24 at 1411, Other (See Comment), See Admin Instructions, Routine loperamide (IMODIUM) capsule 2 mg 2 mg, Oral, EVERY 4 HOURS PRN, Starting on Sun01/18/24 at 1435, Until Sun01/25/24 at 1411, Diarrhea/Loose Stools, Routine polyethylene glycol (MIRALAX) packet 17 Gram 17 Gram, Oral, EVERY 12 HOURS PRN, Starting on Sun01/18/24 at 1435, Until Sun01/25/24 at 1411, Constipation, or over 48 hours since last BM, Routine promethazine (PHENERGAN) tablet 25 mg 25 mg, Oral, EVERY 4 HOURS PRN, Starting on Sun01/18/24 at 1435, Until Sun01/25/24 at 1411, Nausea, Routine documented in this encounter Active and Recently Administered Medications Times are shown in CDT. Scheduled Medication Order 01/23/2024 01/24/2024 01/25/2024 ARIPiprazole (ABILIFY) tablet 10 mg 10 mg, Oral, DAILY, First dose (after last modification) on Sun01/22/24 at 1800, Until Discontinued, Routine 0841 (Given - Provider: Wesley Menjivar RN) 0945 (Given - Provider: Juan Lucero RN) 0841 (Given - Provider: Karey Ojeda RN) bictegravir-emtricitabine -tenofovir alafenam (BIKTARVY) 50-200-25 mg per tablet 1 Tablet 1 Tablet, Oral, DAILY, First dose on Sun01/18/24 at 0800, Until Discontinued, Routine, Previous Med: bictegravir-emtricitabine -tenofovir alafenam (Biktarvy) 50-200-25 mg Tablet - Orig Sig - Take 1 Tablet by mouth daily. 0840 (Given - Provider: Wesley Menjivar RN) 0945 (Given - Provider: Juan Lucero RN) 0841 (Given - Provider: Karey Ojeda RN) doxepin (SINEquan) capsule 25 mg 25 mg, Oral, DAILY AT BEDTIME, First dose (after last modification) on Sun01/19/24 at 2100, Until Discontinued, Routine, Previous Med: doxepin (SINEquan) 25 mg capsule - Orig Sig - Take 25 mg by mouth see administration instructions. 2033 (Given - Provider: Abelardo Nash RN) 35 (Given - Provider: Becki Palacios RN) DULoxetine (CYMBALTA) capsule 60 mg 60 mg, Oral, DAILY, First dose on Sun01/19/24 at 0915, Until Discontinued, Routine, Previous Med: DULoxetine (CYMBALTA) 60 mg Capsule, Delayed Release(E.C.) - Orig Sig - Take 1 Capsule (60 mg) by mouth daily. 08 (Given - Provider: Wesley Menjivar RN) 0945 (Given - Provider: Juan Lucero RN) 08 (Given - Provider: Karey Ojeda RN) PRN Medication Order 01/23/2024 01/24/2024 01/25/2024 acetaminophen (TYLENOL) tablet 650 mg 650 mg, Oral, EVERY 6 HOURS PRN, Starting on Sun01/18/24 at 1436, Until Sun01/25/24 at 1411, Other (See Comment), See Admin Instructions, Routine aluminum - magnesium - simethicone (MYLANTA) 200-200-20 mg/5 mL oral suspension 30 mL 30 mL, Oral, EVERY 6 HOURS PRN, Starting on Sun01/18/24 at 1435, Until Sun01/25/24 at 1411, Other (See Comment), GI Upset, Routine benztropine (COGENTIN) injection 1 mg(Linked Group 1) 1 mg, IM, EVERY 12 HOURS PRN, Starting on Sun01/18/24 at 1435, Until Sun01/25/24 at 1411, Other (See Comment), EPS Symptoms: dystonia, parkinsonisms, or tardive dyskinesia, Routine benztropine (COGENTIN) tablet 1 mg(Linked Group 1) 1 mg, Oral, EVERY 12 HOURS PRN, Starting on Sun01/18/24 at 1435, Until Sun01/25/24 at 1411, Other (See Comment), EPS Symptoms: dystonia, parkinsonisms, or tardive dyskinesia, Routine diphenhydrAMINE (BENADRYL) injection 50 mg(Linked Group 2) 50 mg, IM, EVERY 6 HOURS PRN, Starting on 01/19/24 at 0858, Until Sun01/25/24 at 1411, Other (See Comment), extrapyramidal symptom prevention, Routine diphenhydrAMINE (BENADRYL) tablet 50 mg(Linked Group 3) 50 mg, Oral, EVERY 4 HOURS PRN, Starting on 01/19/24 at 0859, Until Sun01/25/24 at 1411, Restlessness, Agitation, Routine haloperidoL (HALDOL) tablet 5 mg(Linked Group 3) 5 mg, Oral, EVERY 4 HOURS PRN, Starting on 01/19/24 at 0859, Until Sun01/25/24 at 1411, Agitation, Routine haloperidol lactate (HALDOL) injection 5 mg(Linked Group 2) 5 mg, IM, EVERY 6 HOURS PRN, Starting on 01/19/24 at 0858, Until Sun01/25/24 at 1411, Other (See Comment), agitated psychosis, Routine hydrOXYzine HCL (ATARAX) tablet 50 mg 50 mg, Oral, EVERY 6 HOURS PRN, Starting on 01/19/24 at 0859, Until Sun01/25/24 at 1411, Anxiety, Routine 2033 (Given - Provider: Abelardo Nash RN) 35 (Given - Provider: Becki Palacios RN) ibuprofen (MOTRIN) tablet 400 mg 400 mg, Oral, EVERY 6 HOURS PRN, Starting on Sun01/18/24 at 1436, Until Sun01/25/24 at 1411, Other (See Comment), See Admin Instructions, Routine loperamide (IMODIUM) capsule 2 mg 2 mg, Oral, EVERY 4 HOURS PRN, Starting on Sun01/18/24 at 1435, Until Sun01/25/24 at 1411, Diarrhea/Loose Stools, Routine polyethylene glycol (MIRALAX) packet 17 Gram 17 Gram, Oral, EVERY 12 HOURS PRN, Starting on Sun01/18/24 at 1435, Until Sun01/25/24 at 1411, Constipation, or over 48 hours since last BM, Routine promethazine (PHENERGAN) tablet 25 mg 25 mg, Oral, EVERY 4 HOURS PRN, Starting on Sun01/18/24 at 1435, Until Sun01/25/24 at 1411, Nausea, Routine Linked Groups Order Group 1: benztropine (COGENTIN) tablet 1 mgJump to med 1 mg, Oral, EVERY 12 HOURS PRN, Starting on Sun01/18/24 at 1435, Until Sun01/25/24 at 1411, Other (See Comment), EPS Symptoms: dystonia, parkinsonisms, or tardive dyskinesia, Routine Or benztropine (COGENTIN) injection 1 mgJump to med 1 mg, IM, EVERY 12 HOURS PRN, Starting on Sun01/18/24 at 1435, Until Sun01/25/24 at 1411, Other (See Comment), EPS Symptoms: dystonia, parkinsonisms, or tardive dyskinesia, Routine Group 2: haloperidol lactate (HALDOL) injection 5 mgJump to med 5 mg, IM, EVERY 6 HOURS PRN, Starting on 01/19/24 at 0858, Until Sun01/25/24 at 1411, Other (See Comment), agitated psychosis, Routine And diphenhydrAMINE (BENADRYL) injection 50 mgJump to med 50 mg, IM, EVERY 6 HOURS PRN, Starting on 01/19/24 at 0858, Until Sun01/25/24 at 1411, Other (See Comment), extrapyramidal symptom prevention, Routine Group 3: haloperidoL (HALDOL) tablet 5 mgJump to med 5 mg, Oral, EVERY 4 HOURS PRN, Starting on 01/19/24 at 0859, Until Sun01/25/24 at 1411, Agitation, Routine And diphenhydrAMINE (BENADRYL) tablet 50 mgJump to med 50 mg, Oral, EVERY 4 HOURS PRN, Starting on 01/19/24 at 0859, Until Sun01/25/24 at 1411, Restlessness, Agitation, Routine documented in this encounter
--- OUTSIDE RECORDS SUMMARY | 2024-08-10 03:47 | XMS_ITS | Encounter Summary ---
Author Organization [facility] Address 

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
--- OUTSIDE RECORDS SUMMARY | 2024-08-10 03:47 | XMS_ITS | Encounter Summary ---
Author Organization [facility] Address [address] [place] [address] Care Team Providers Care Fish [employer] Wildlife Scientific Aid Name Role Phone Unavailable Primary Care Provider Unavailabl e Reason for Visit * Auth/Cert (Routine) Specialty Diagnoses / Procedures Referred By Contac t Referred To Contact Behavioral Health Diagnoses Severe bipolar [place] [address] [place] [address] Phone: tel: fax: [facility] 2 B Behavioral Medicine [address] [place] [address] Phone: tel: fax: Referral ID Status Reason Start Date Expiration Date Visits Re quested Visits Authorized [id number] 1 1 Encounter Details Date Type Department Care Team (Latest Contact Info) Description 02/04/2024 6:11 PM CDT - 02/08/2024 1:22 PM CDT Hospital Encounter [facility] 1 A Behavioral Medicine [address] [place] [id number] [place] [address] [place] [address] [place] [address] [place] [id number] Severe recurrent major depression without psychotic features Discharge Disposition: Home or Self Care Social [...] who hurts you emotionally and/or physically? 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 Gender Identity Not on file Sexual Orientation Not on file documented as of this encounter Last Filed Vital Signs Vital Sign Reading Time Taken Comments Blood Pressure 140/92 02/08/2024 8:00 AM CDT Pulse 88 02/08/2024 8:00 AM CDT Temperature 36.8 ??C (98.2 ??F) 02/08/2024 8:00 AM CD T Respiratory Rate 18 02/08/2024 8:00 AM CDT Oxygen Saturation 99% 02/08/2024 8:00 AM CDT Inhaled Oxygen Concentration - - Weight 82.5 kg (181 lb 12.8 oz) 02/08/2024 8:00 AM CDT Height 182.9 cm (6') 02/04/2024 6:14 PM CDT Body Mass Index 24.66 02/04/2024 6:14 PM CDT documented in this encounter Discharge Summaries * Nayeli Desai MD - 02/08/2024 9:42 AM CDT [facility] DISCHARGE SUMMARY Date of Admission: 02/04/2024 Date of Discharge: 02/08/2024 Reason for Hospitalization: Suicidal ideations Discharge Diagnosis: Severe recurrent major depression without psychotic features Generalized anxiety disorder Hospital Course: Phil Chase was admitted and an individualized treatment plan was developed which included both individual and group therapies, as well as engagement in the therapeutic milieu. Phil was provided both psychoeducational and medication education. Phil was receptive to supportive therapy with motivational engagement and cognitive-behavioral techniques. If indicated, substance-use focused motivational therapy was also provided. Medical care was supervised by the medical hospitalist team. Medication management during the hospitalization included: Cymbalta 90 mg daily, Buspar 10 mg tid. Phil was provided education regarding potential medication benefits, risks/side effects, to increase their knowledge and understanding, and to help facilitate compliance following discharge. They provided verbal informed consent to medication offered during the admission as well as the need for ad herence after discharge. Phil tolerated medication well with adequate response noted. They were recommended to continue medications as prescribed and discharge prescriptions were completed. Phil showed a positive response to their individualized treatment. The circumstances and symptoms leading to admission were adequately resolved. They were recommended to refrain from using illicitdrugs or alcohol, as this may impair mood, judgment, and behavior. A final risk assessment was completed, and imminent risk of suicide or self-harm was determined to be at a level safe for discharge. Phil denied thoughts of self-harm or suicidal ideation and could identify protective factors. A personalized safety plan was developed and sent with the patient. If the patient possessed weapons, their security was addressed in the safety plan. Phil agreed with their safety plan as well as to return to the hospital if necessary. Phil showed intact realitytesting. Phil appeared willing and able to participate in their care partner. In summary, Phil was considered safe and stable to transition to a lower level of care. Labs: Lab Results Component Value Date/Time WBC 6.0 01/18/2024 02:45 PM HGB 14.4 01/18/2024 02:45 PM HGBPOC 14.7 01/17/2024 04:44 PM HCT 45.2 01/18/2024 02:45 PM HCTPOC 44 01/17/2024 04:44 PM PLT 174 01/18/2024 02:45 PM MCV 90.8 01/18/2024 02:45 PM Lab Results Component Value Date/Time NA 136 01/18/2024 02:45 PM K 4.1 01/18/2024 02:45 PM CL 100 01/18/2024 02:45 PM CO2 25 01/18/2024 02:45 PM CA 10.1 01/18/2024 02:45 PM BUN 17 01/18/2024 02:45 PM CREAT 0.81 01/18/2024 02:45 PM GLUCOSE 80 01/18/2024 02:45 PM TOTALPROTEIN 8.0 01/18/2024 02:45 PM ALBUMIN 4.4 01/18/2024 02:45 PM BILITOTAL 0.4 01/18/2024 02:45 PM ALKPHOS 81 01/18/2024 02:45 PM AST 35 01/18/2024 02:45 PM ALT 18 01/18/2024 02:45 PM ANIONGAP 11 01/18/2024 02:45 PM Lab Results Component Value Date/Time CHOLTOT 129 01/17/2024 04:37 PM HDL 35 (L) 01/17/2024 04:37 PM LDLCALC 85 01/17/2024 04:37 PM TRIGLYCERIDE 43 01/17/2024 04:37 PM Lab Results Component Value Date/Time HGBA1C 5.6 01/17/2024 04:37 PM No results found for: LITHIUM , PHENYTOINTT , PHENYTOINFR , PHENOBARB , VALPROICACTT , VALPROICACFR , CARBAMAZ , CARBAMAZF , LEVETIRACETA No results found for: ALCOHOLETH , AMPHETAMINES , BENZODIAZEPI , COCAINEME , OPIATECLASS , OXYCODONECL , METHADONEUR , FENTANYLA , BUPRENORPHIN , TAPENTADOL , OTHEROPIOID , CANNABINOIDS , BARBITURATES , OTHERHALLUC , SYMPATHOMIME , ANTICONVULSA , MUSCLERELAX , SEDATIVEHYP Mental Status Exam on Day of Discharge: General Appearance: appearing stated age, fair hygiene and grooming Orientation: awake and alert, oriented to person, place and time Behavior: cooperative Psychomotor: no agitation or retardation Speech: normal rate/rhythm/volume/prosody Mood: pleasant Affect: mood congruent Thought Process: linear and goal directed Thought Content: denied thoughts of self-harm or violence toward others; not delusional Perception: denied auditory or visual hallucinations; no obvious reaction to internal stimuli Insight: fair, improved from admission Judgment: fair, improved from admission Vital Signs: BP (!) 140/92 (BP Location: Left arm, Patient Position (BP): Sitting) Pulse 88 Temp 98.2 ??F (36.8 ??C) (Oral) Resp 18 Ht 6' (1.829 m) Wt 82.5 kg (181 lb 12.8 oz) SpO2 99% BMI 24.66 kg/m?? Discharge Medications: Medication List START taking these medications busPIRone 10 mg tablet Commonly known as: BUSPAR Take 1 Tablet (10 mg) by mouth 3 times daily. Signed by: Dr. Miranda Desai Quantity: 90 Tablet Refills: 0 CHANGE how you take these medications ARIPiprazole 15 mg tablet Commonly known as: ABILIFY What changed: medication strength how much to take Take 1 Tablet (15 mg) by mouth daily. Start taking on: February 09, 2024 Signed by: Dr. Miranda Desai Quantity: 30 Tablet Refills: 0 DULoxetine 30 mg Capsule, Delayed Release(E.C.) Commonly known as: CYMBALTA What changed: medication strength how much to take Take 3 Capsules (90 mg) by mouth daily. Start taking on: February 09, 2024 Signed by: Dr. Miranda Desai Quantity: 90 Capsule Refills: 0 hydrOXYzine HCL 50 mg tablet Commonly known as: ATARAX What changed: when to take this Take 1 Tablet (50 mg) by mouth 2 times daily as needed for Anxiety. Signed by: Dr. Miranda Desai Quantity: 60 Tablet Refills: 0 CONTINUE taking these medications Biktarvy 50-200-25 mg Tablet Take 1 Tablet by mouth daily. Signed by: Dr. Miranda Desai Quantity: 30 Tablet Refills: 0 Generic drug: zkaxvazgasa-dtaojrcmswjum-lcmbwbvty alafenam STOP taking these medications doxepin 25 mg capsule Commonly known as: SINEquan Where to Get Your Medications These medications were sent to [facility] [place] [address] Hours: Sunday - Sunday: 7 am - 9 pm, Sunday - Sunday: 9 am - 7 pm ARIPiprazole 15 mg tablet Biktarvy 50-200-25 mg Tablet busPIRone 10 mg tablet DULoxetine 30 mg Capsule, Delayed Release(E.C.) hydrOXYzine HCL 50 mg tablet Discharge Plan: Patient Discharged to: home Follow-up plan: PSYCHIATRY and Therapy Follow-up: It is recommended you follow up with an outpatient psychiatric provider for continued care. You have been referred to [facility]. Services with [facility] can include medication management, case management, and counseling. Please continue to work with your case preparer and liner Isadora De La Rosa, who you can reach at [phone]. You can also contact their intake line at [phone]. Discharging Physician: Nayeli Desai MD Time Spent: 34 minutes. documented in this encounter Discharge Instructions * Discharge Instructions* Mishel Solomon, AIDE - 02/05/2024 10:14 AM CDT HOME PLAN: [facility] Address: [address] [place] [address] /LG: Isadora ([facility]) [phone] Elkin Keron ([facility]) [phone] PSYCHIATRY and Therapy Follow-up: It is recommended you follow up with an outpatient psychiatric provider for continued care. You have been referred to [facility]. Services with [facility] can include medication management, case management, and counseling. Please continue to work with your case preparer and liner Isadora De La Rosa, who you can reach at [phone]. You can also contact their intake line at [phone]. LOCATIONS: [address] [address] (located on the corner of [facility] across from [facility]) [address] [address] [address] Primary Care Follow up: If you do not have a PCP you may use the Physician Referral Service [facility] Physician Referral Service is a free, confidential, computerized service staffed by referral specialists. Our co-workers will help you find the names of several physicians that meet your requirements and provide you with their qualifications and background information. Referrals are based on your specific criteria: Requested specialty Office location Primary hospital practice site Specialized training Participation in insurance plans Our co-workers also can explain [facility] programs and services. Call Sunday through Sunday at [phone] or . You can access the service on the web at [email or web address] Below is a list of medical clinics in the [place] area: Bushra Cintron [facility] Centers [facility] [address] [place] [address] [facility] [address] [place] [address] [facility] [address] [place] [address] [facility] [place] [address] [place] [address] [facility] [address] [place] [address] [facility] [address] [place] [address] [facility] [address] [place] [address] [facility] [address] [place] [address] [facility] [address] [place] [address] [facility] [address] [place] [address] [facility] [address] [place] [address] [facility] [address] [place] [address] [facility] [address] [place] [address] [place] [facility] [address] [place] [address] [facility] [address] [address] [facility] [address] [place], [place] [id number] National Suicide Prevention Lifeline # 988 Crisis Text Line - Text ???Start?? to 845-677 ADDITIONAL RESOURCES: Please see the below list of resources including shelters, drop-in centers, cooling centers, extended stay hotels, food pantries, and clinics. Shelters and Homeless Resources: Shelters Please call 211 or [phone] to check on chcf availability. Retirement beds are not guaranteed. It is recommended you call early in the morning. Cooling Centers [facility] [address] [facility] [address] Hours: Mon-Lara - 9:00am to 8:00pm; Fri and Sat - 9:00am to 5:00pm; Sun - 1:00pm to 5:00pm [facility] [address] [facility] [address] Hours: Mon-Fri - 8:00am to 5:00pm [facility] [address] [place] [address] Hours: Mon - 12:00pm(Noon) to 8:00pm; Tue-Lara - 10:00am to 6:00pm; Fri and Sat - 10:00am to 5:00pm [facility] [address] [place] [address] Hours: Mon-Lara - 9:00am to 9:00pm; Fri and Sat - 9:00am to 5:00pm [facility] [address] [place] [address] Hours: Mon - 12:00pm(Noon) to 8:00pm; Tue-Lara - 10:00am to 6:00pm; Fri and Sat - 10:00am to 5:00pm [facility] [address] [facility] [address] Hours: Mon-Lara - 9:00am to 8:00pm; Fri and Sat - 9:00am to 5:00pm; Sun - 1:00pm to 5:00pm [facility] [address] [place] [address] Hours: Mon-Lara - 9:00am to 8:00pm; Fri and Sat - 9:00am to 5:00pm; Sun - 1:00pm to 5:00pm [facility] [address] [facility] [address] Hours: Mon - 12:00pm(Noon) to 8:00pm; Tue-Lara - 10:00am to 6:00pm; Fri and Sat - 10:00am to 5:00pm [facility] [address] [place] [address] Hours: Mon - 12:00pm(Noon) to 8:00pm; Tue-Lara - 10:00am to 6:00pm; Fri and Sat - 10:00am to 5:00pm [facility] [address] [facility] [address] Hours: Mon-Lara - 9:00am to 9:00pm; Fri and Sat - 9:00am to 5:00pm [facility] [address] [facility] [address] Hours: Mon - Sun 7:00am to 7:00pm [facility] [address] [facility] [address] Hours: Mon - Sun 7:00am to 7:00pm [address] [address] Hours: Sun-Lara - 9:00am to 7:00pm; Fri - 9:00am to 5:00pm; Sat - 9:00am to 2:00pm Drop-in Centers [facility] [address] [place] [address] Day time drop-in center Lunch is every day from 12-12:30 pm. Morning discovery sessions Sunday-Sunday 8:00am Afternoon discovery sessions Sunday-Sunday 1:00pm Showers, laundry, mail services, medical/mental health care, employment/training services, and housing resources. [facility] [address] [place] [address] Depression Bipolar Support [place] (DBSA) Open Sunday-Sunday 9:00am-3:00pm [address] [address] [facility] [address] for women and children Walk-in hours Sunday-Sunday 10:00am-4:00pm [facility] Food Pantry [address] [place] [address] Food pantry hours: Sunday and Sunday 1:00pm-4:00pm [employer] provide computers and computer labs that give immediate access to the internet. And you can get an e-mail address there. Extended Stay Hotels [facility] - [phone]. Located at [address] [place] [address]. [facility]- [phone]. [address] [facility] [place] [address]. [facility] - [phone]. Located [address] [place] [address] Extended Stay [facility] - [phone]. [address] [facility]. [facility] -[phone]. Located at [address] [place] [address] [facility]- [phone]. Located at [address] [place] [address]. ADDITIONAL RESOURCES Medical clinic options include: Bushra Cintron - [address] [place] [address] - [phone] [facility] [place] - [phone] (New patient appointments are accepted on Mondays) Yana Franz or Brendan Pitts [facility] - [phone] (Centralized scheduling line) [address] - [phone] [facility] - [phone] [facility] - [phone] (Must walk-in and complete pre- registration for services.Please call to learn items needed for pre-registration) [facility] - [phone] (Must complete an application) Substance Use Treatment Referrals [facility] [place]) [phone] Inpatient Medical Detox, Residential, Outpatient Services, Anti-Craving Medications, Transitional Housing, Aftercare (Adults 18+) Locations: [facility] Insurance(s): Most major insurances (no Medicare, Medicaid, or HealthCare USA) [facility] [phone] Inpatient Medical Detox, Residential, Outpatient Services, Anti-Craving Medications, Aftercare (Adult and Adolescent Programs) Locations: [facility], [facility], [place], [facility], [facility] Insurance(s): Most major insurances, Medicaid, State-Funding [facility] [phone] Inpatient Medical Detox, Residential, Outpatient Services, Anti-Craving Medications, Aftercare (Adults 18+) Main Location: [place] [facility] Locations: [facility], [facility], [place], [place] Insurance(s): Most major insurances (no , Medicare, or Medicaid) [facility] [phone] Inpatient Medical Detox, Residential, Outpatient Services, Anti-Craving Medications, Aftercare (Adult and Adolescent Programs) Locations: [place] ([facility], [place], [place], [place]) Insurance(s): Most major insurances, [place] Medicaid, [place] State-Funding (no [place] Medicaid or Medicare) [facility] [phone] Inpatient Medical Detox, Short/Long-Term Residential, Outpatient Services, Transitional Housing (Adults 18+) Location: [facility] Insurance(s): [facility] Sin[facility] [phone] Short/Long-Term Residential, Outpatient Services, Day Treatment Program (Adults Only) Location: [facility] Insurance(s): Medicaid Only [facility] [phone] Inpatient Medical Detox, Short-Term Hospitalization, Typically a 3 day, 4 night detox (Adults 18+) Locations: [facility] Insurance(s): Most major insurances, including Medicare and Medicaid [facility] [phone] Residential Services, Outpatient Services, Early Intervention (Adolescents; Adult Programs) Locations: [place] and [facility] Insurance(s): Most major insurances, including Medicare and Medicaid [facility] [phone] Inpatient Medical Detox, Residential, Outpatient Services, Aftercare (Adult and Adolescent Programs) Locations: [place], [place], [place], [place], [facility], [facility], [place], [place], [place] (more online) Insurance(s): Most major insurances, Medicare, and Medicaid [facility] (Women Only) [phone] Residential, Outpatient Services, Guest Relations Receptionist Services Location: [facility] Insurance(s): State-Funding, Medicare, Medicaid [facility] (Men Only) [phone] Inpatient Medical Detox, Short-Term Residential, Outpatient Services, Transitional Housing Location: [facility] Insurance(s): State-Funding [facility] [phone] Inpatient Medical Detox, Residential, Outpatient Services, Anti-Craving Medications, Aftercare, Family Program (Ages 16+) Inpatient Location: [place] Outpatient Location: Camron Ariza Insurance(s): Most major insurances (No Medicare or Medicaid) Outpatient [facility] [phone] Outpatient Detox, Aftercare, Anti-Craving Medications (Adult and Adolescent Programs) Location: [place] Insurance(s): Most major insurances and, Managed Medicaids (No Medicare) [place] [phone] Outpatient Services, Day Treatment Program, Counseling Services (Adult and Adolescent Programs) Locations: [place] Insurance(s): Most major insurances, including Medicare and Medicaid [employer] on Alcoholism and Drug Abuse [facility] [phone] Substance Abuse assessments (9:30am - 3pm Sunday - Sunday; Appointment Only), Referrals, General Substance Abuse Help/Information Line (9am - 5pm Sunday - Sunday); Adult and Adolescent Assessments Location: [place] Insurance(s): None, Adult Appointments: $50, Adolescent (19 and under): Free ??Necesita Ayuda? ([place]ian NCADA Help Line) [phone] Sustancia general Abuso Ayuda / L??lali de Informaci??n para los clientes de habla espa??clifford (parte de la NCADA-ST; caro descripci??n anterior Suicide Prevention/Crisis Hotlines [facility] - Behavioral Health Intake Department [phone] [facility] Behavioral Health Intake Department is professionally staffed and offers free, confidential evaluations for anyone needing assistance with a psychiatric, behavioral or addictive disorder. Evaluations, as well as referrals to physicians or community resources, are available 24 hoursa day, 7 days a week. [facility] [phone] ([phone]) [facility] is one of the nation???s [facility] suicide prevention and crisis hotlines. [facility] operates 24 hours a day, 7 days a week, 365 days a year. Behavioral Health Response ([facility]) [phone] (toll free) Behavioral Health Response (R) is a professionally staffed crisis response service. [facility] provides expert behavioral health, crisis response, and outreach services, 24 hours a day, seven days a week to agencies and companies worldwide. [place] Suicide Prevention Hotline 4-783-801-TALK (7111) A free, 24-hour hotline available to anyone in suicidal crisis or emotional distress. Your call will be routed to the nearest crisis center to you. [place] Hopeline Network 7-370-LRLWRJS KUTO (Kids Under Twenty-One) Crisis Helpline 2-130-722-KUTO (1378) Youth staffed every day after 4pm CANDLE CUTTER The KUTO Crisis Helpline is a confidential telephone hotline available to any youth who may be in need of assistance, referral information or crisis services. The KUTO Helpline is one of a handful [facility] staffed exclusively by youth volunteers. [facility] [place] on Mental Illness ([facility]) [phone] A referral for smoking cessation support/counseling services was offered to you; however, you have refused that referral at this time. If you would like smoking cessation resources in the future, youare advised to contact the [place] Tobacco Quitline. 1-917-AAZQ-NOW documented in this encounter Medications at Time of Discharge ARIPiprazole (ABILIFY) 15 mg tablet Starting 02/09/24, Take 1 Tablet (15 mg) by mouth daily. 30 Tablet 02/08/2024 11:01 AM CDT 02/09/2024 bictegravir-emtri citabine-tenofovi r alafenam (Biktarvy) 50-200-25 mg Tablet Take 1 [...] 60 Tablet 02/08/2024 11:01 AM CDT 02/08/2024 documented as of this encounter Progress Notes * Mishel Solomon MSW - 02/08/2024 11:55 AM CDT 02/05/24 1410 Discharge Planning Plan Discharge To Other (Comment) ([facility] inpatient rehab [facility] [place], [place]) Patient/Family Communications Referral Status update;Plan Discharge To Update;Expected Discharge Date Update;Confirmed Discharge Plan Discharge Plan Agreed Upon Patient;Other (see comment) (CRYSTAL Castro, and CHARISSE Muir [phone]) Resource List Given Other (Comment);Homeless;Substance Misuse;PCP (suicide prevention hotlines) Resource List Given To Patient Follow-up on Referrals Sent Yes Has discharge transport been arranged? Yes Transportation Provider [place] Transportation Contact Name [facility] Transportation Provider Final Discharge Arrangements Attempt Made to Contact Caregiver? Yes CareGiver agreeable to discharge plan Yes Final Discharge Disposition Home (Follow up with [facility] inpatient rehab; ADAPT CSS Isadora) Services Arranged For Discharge Community case management;Counseling;Mental health;Other (Comment);Transportation assistance (substance tx) Agency Name [facility]ISSE and Preferred Agency Phone Number CRYSTAL Castro, and CHARISSE Muir [phone] Firearms secured Yes Safety Plan completed Yes Access to meds at discharge Yes ([facility] Patrickmaria esther) Duty to warn complete N/A * Martha Downs MD - 02/07/2024 12:31 PM CDT Patient had xray of hip done yesterday afternoon No fractures/ dislocations Cont with prn pain/antiinflam/ muscle relaxers Will sign off please reconsult with additional needs Martha Downs MD [facility] Chat preferred *note is produced with voice to text software and error's may be present* * Nayeli Desai MD - 02/07/2024 11:18 AM CDT [facility] INPATIENT PROGRESS NOTE Chief Complaint: I have suicidal thoughts Interval History of Present Illness: The medical record reflects the history of present illness as obtained by myself in discussion withthe patient. I reviewed the chart, discussed patient???s care with the treatment team and interviewed the patient. The patient currently endorses or displays the following: Phil reports feeling extremely depressed and voiced suicidal thoughts. He has been isolative andwas curled up in bed. We discussed increasing the Cymbalta dose to 90 mg. His Buspar dose was increased yesterday to 10 mg tid and it has helped. No psychotic symptoms. Adherence to medication: yes Side effects noted or reported: no Staff report: Behavioral disturbance noted or reported: no Participation in therapeutic activities: no Sleep: Sleep Hours Night (6p-6a): 10.5 (02/06/24 0600) Sleep/Rest/Relaxation: no problem identified;appears asleep (02/07/24 0600) Family & Social History: [] No changes from admission [x] Changes/additions include: Current Medications: Facility-Administered Medications as of 02/07/2024 Medication Dose Frequency Provider Last Rate Last Admin busPIRone (BUSPAR) tablet 10 mg 10 mg TID Criselda Pruitt APRN-CNP 10 mg at 02/07/24 0916 hydrOXYzine HCL (ATARAX) tablet 50 mg 50 mg every 6 hours PRN Criselda Pruitt APRN-CNP 50 mg at 02/06/242003 traMADoL (ULTRAM) tablet 50 mg 50 mg every 6 hours PRN Martha Downs MD 50 mg at 02/06/242003 naloxone (NARCAN) 1 mg/mL injection 0.1-0.4 mg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 VII: facial muscle function - upper and lower normal bilat VIII: hearing seems preserved IX: soft palate elevation normal bilaterally XI: trapezius strength normal bilat XI: sternocleidomastoid strength normal bilat XII: tongue strength normal VITAL SIGNS: BP (!) 132/99 (BP Location: Left arm, Patient Position (BP): Sitting) Pulse 70 Temp 98.2 ??F (36.8 ??C) (Oral) Resp 18 Ht 6' (1.829 m) Wt 79.9 kg (176 lb 1.6 oz) SpO2 100% BMI 23.88 kg/m?? CIWA No data found in the last 10 encounters. LABS ON ADMISSION: Results for orders placed or performed during the hospital encounter of 02/04/24 (from the past 24 hour(s)) DRUG SCREEN, URINE Result Value Ref Range AMPHETAMINE QUAL, URINE Negative Negative BARBITURATE QUAL, URINE Negative Negative BENZODIAZEPINE QUAL, URINE Negative Negative COCAINE QUAL URINE Negative Negative OPIATE QUAL, URINE Negative Negative CANNABINOIDS QUAL, URINE Negative Negative PCP QUAL, URINE Negative Negative OXYCODONE QUAL, URINE Negative Negative METHADONE QUAL, URINE Negative Negative FENTANYL QUAL, URINE Negative Negative CREATININE, URINE 224.0 40.0 - 278.0 mg/dL URINALYSIS WITH REFLEX MICROSCOPIC Result Value Ref Range COLOR UA Yellow Pale to Dark Yellow CLARITY UA Clear Clear SPECIFIC GRAVITY UA 1.024 1.003 - 1.035 PH UA 6.0 5.0 - 8.0 LEUKOCYTE ESTERASE UA Negative Negative NITRITE UA Negative Negative PROTEIN UA Negative Negative GLUCOSE UA Negative Negative KETONES UA Negative Negative UROBILINOGEN UA 2.0 (A) <2.0 mg/dL BILIRUBIN UA Negative Negative BLOOD UA Negative Negative WBC UA 0-2 0 - 2 /hpf RBC UA 0-2 0 - 2 /hpf BACTERIA UA Negative Negative /hpf EPITHELIAL CELLS, URINE 0-5 0 - 5 /hpf HYALINE CAST None Seen None Seen, 0-2 /lpf Ascorbic Acid UA Positive (A) Negative CT HEAD WO CONTRAST Result Date: 01/17/2024 [...] midline shift. PARENCHYMA: No territorial loss of renee-white matter differentiation or mass effect. No hyperdense parenchymal hemorrhage. EXTRA-AXIAL SPACE:No hyperdense hemorrhage. Patent cisterns. CALVARIUM: Intact calvarium. SINUSES: Normal aeration ofparanasal sinuses and mastoid air cells. VASCULAR: No atherosclerotic changes ADDITIONAL: None IMPRESSION: 1. No acute intracranial abnormality on noncontrast CT. DICTATION LOCATION: Location 4 Results for orders placed or performed during the hospital encounter of 01/01/24 EKG 12-[place] [facility] [place] [address] [place] [address] Test Date: 2024-01-01 Pat Name: PHIL CHASE Department: 93 Room: [address] [place] [address] Gender: Male Extracorporeal Circulation Specialist: : 1995 Requested By: Order Number: [id number] Reading MD: Peter Park Measurements Intervals [place] Rate: 69 P: 56 NC: 174 QRS: 56 QRSD: 90 T: 47 QT: 382 QTc: 409 Interpretive Statements Normal sinus rhythm Normal ECG No previous ECG available for comparison Electronically Signed On 01-01-2024 15:07:05 CDT by Peter Park MENTAL STATUS EXAM: General Appearance: appearing stated age, poor hygiene and grooming laying in bed Orientation: awake and alert, oriented to person, place and time Behavior: Partially cooperative disengaged Psychomotor: no agitation or retardation Attitude: Partially cooperative Eye Contact: Poor Speech: normal rate/rhythm/volume/prosody Language: fluent, free of aphasia and paraphasic errors Thought Process: linear and goal directed Thought Content: + thoughts of self-harm denies current plan or intent denies violence toward others; no delusions verbalized Perception: denied auditory or visual hallucinations; no obvious reaction to internal stimuli Associations: intact Mood: Depressed Affect: mood congruent Insight: Limited Judgment: Limited Attention/Concentration: focused and able to attend to conversation Memory: grossly intact Fund of Knowledge: average Muscle strength and tone: normal Gait: normal Patient Strengths Able to Express Needs and [place] in ADL's Patient Liabilities Limited/Lack of Insight, Substance Use Issues, Socially Isolated, Limited Coping Skills, and Poor Physical Health Assessment and Plan Primary Problem: Severe recurrent major depression without psychotic features Active Hospital Problems Diagnosis Date Noted Methamphetamine abuse 01/18/2024 Suicidal ideations 01/17/2024 Severe recurrent major depression without psychotic features 01/02/2024 RENEE (generalized anxiety disorder) 06/27/2022 HIV infection 07/31/2019 MDD without psychosis Increase Abilify to 15 mg daily Continue Cymbalta 60 mg daily Continue BuSpar 5 mg 3 times daily Suicidal ideations Patient endorsing SI denies plan or intent Continue to monitor on inpatient unit for safety History of meth abuse UDS negative Encouraged abstinence and rehab Plan to return to [facility] for rehab RENEE Continue BuSpar 5 mg 3 times daily Utilize hydroxyzine as needed 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 Medical consultation with hospitalist to manage medical [...] groups and activities. Psychoeducation regarding diagnosis and treatment, medication education, including the importance of compliance, was provided. Supportive psychotherapy/motivational engagement was provided to foster recovery-oriented goals. I discussed with the patient the severity/complexity of their illness, which is high. documented in this encounter Consult Notes * Martha Downs MD - 02/05/2024 2:00 PM CDTAssociated Order(s): IP CONSULT TO HOSPITALIST [facility] Hospitalist Group Consult Phil Chase 1995 28 y.o. male CSN: [id number] Date of Admission: 02/04/2024 6:11 PM Date of Note: 02/05/2024 Chief Complaint: No chief complaint on file. Medication Allergies: No Known Allergies Primary Care Doctor: No primary care provider on file. Code Status: Prior Diet: DIET GENERAL Effective Now Emergency contact: Primary Emergency Contact: isadora de la rosa Activity: as tolerated Current Planned Disposition: home Assessment/Plan: HPI: Phil Chase Jr. is a 28 y.o. male who is admitted by psych for inpatient psychiatric management . PT with a history of RENEE, HIV, polysubstance abuse, severe depressed bipolar I disorderwithout psychotic features, and severe recurring episodes of major depression without psychotic features. The patient reports that he was planning to cut himself yesterday but instead sought admission to the ED. 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 The patient reports that his symptoms began after he ran out of his medication 5 days ago. The patient reports that he is a recovering addict with trauma from high school. He is supposed to be taking Abilify, Hydroxyzine, Cymbalta, Atarax, Buspar, and Biktarvy. Patient is currently resting calmly Hospitalist group is consulted for medical management Pertinent Current Labs: No results for input(s): WBC , HGB , HCT , PLT , NA , K , CL , MG , CO2 , BUN , CREAT , GLUCOSE , ALT , AST , ALBUMIN , BILITOTAL , ANIONGAP , INR , CPK , AMMONIA in the last 72 hours. Invalid input(s): CALCIUM , ALKPHOS* , *CRP* Assessment/Plan : Active Problems Active Hospital Problems Diagnosis Methamphetamine abuse Suicidal ideations Severe recurrent major depression without psychotic features RENEE (generalized anxiety disorder) HIV infection Resolved Hospital Problems No resolved problems to display. Hiv Resume Biktarvy Mood disorder , si, depression - per psych Fall - ambulating okay - tylenol/ibu and tramadol available prn pain - imaging pending but can cancel if continues to ambulate without significant pain DVT Prophlaxis: not indicated Thank you for this consult. We will follow along Review of Symptoms : Specific ROS not mentioned in HPI Resting calmly; no f/c/n/v/sob Physical Exam: BP 131/81 (BP Location: Left arm, Patient Position (BP): Sitting) Pulse 85 Temp 97.3 ??F (36.3 ??C) (Oral) Resp 18 Ht 6' (1.829 m) Wt 79.9 kg (176 lb 1.6 oz) SpO2 99% BMI 23.88 kg/m?? Temp (24hrs), Av.9 ??F (36.6 ??C), Min:97.3 ??F (36.3 ??C), Max:98.5 ??F (36.9 ??C) GEN: NAD, lying in bed, appears stated age HEAD: Normocephalic, without obvious abnormality, atraumatic EYES: Conjunctivae/corneas clear. PERRL, EOM's intact. no scleral icterus, EARS: Grossly within normal limits; No deformities NOSE: Grossly within normal limits THROAT: Oropharynx is clear, mmm CARDIAC: no jvd; RESP: No resp distress, talking in complete sentences, breathing at normal rate, CTAB ABD: non distended , + BS EXT: no edema, moves all extremities spontanously MUSC: nomuscle wasting, no joint effusions or swelling appreciated NEURO: CN 2-12 intact grossly and symmetrically PSYCH : Mood and affect flat Data Base: Results for orders placed or performed during the hospital encounter of 02/04/24 DRUG SCREEN, URINE Result Value Ref Range AMPHETAMINE QUAL, URINE Negative Negative BARBITURATE QUAL, URINE Negative Negative BENZODIAZEPINE QUAL, URINE Negative Negative COCAINE QUAL URINE Negative Negative OPIATE QUAL, URINE Negative Negative CANNABINOIDS QUAL, URINE Negative Negative PCP QUAL, URINE Negative Negative OXYCODONE QUAL, URINE Negative Negative METHADONE QUAL, URINE Negative Negative FENTANYL QUAL, URINE Negative Negative CREATININE, URINE 224.0 40.0 - 278.0 mg/dL URINALYSIS WITH REFLEX MICROSCOPIC Result Value Ref Range COLOR UA Yellow Pale to Dark Yellow CLARITY UA Clear Clear SPECIFIC GRAVITY UA 1.024 1.003 - 1.035 PH UA 6.0 5.0 - 8.0 LEUKOCYTE ESTERASE UA Negative Negative NITRITE UA Negative Negative PROTEIN UA Negative Negative GLUCOSE UA Negative Negative KETONES UA Negative Negative UROBILINOGEN UA 2.0 (A) <2.0 mg/dL BILIRUBIN UA Negative Negative BLOOD UA Negative Negative WBC UA 0-2 0 - 2 /hpf RBC UA 0-2 0 - 2 /hpf BACTERIA UA Negative Negative /hpf EPITHELIAL CELLS, URINE 0-5 0 - 5 /hpf HYALINE CAST None Seen None Seen, 0-2 /lpf Ascorbic Acid UA Positive (A) Negative POC GLUCOSE Result Value Ref Range GLUCOSE POC 101 (H) 74 - 99 mg/dL SPECIMEN SOURCE, GLUCOSE POC Whole Blood Imaging: CT HEAD WO CONTRAST Narrative: CT HEAD WITHOUT CONTRAST WITH REFORMATTED IMAGES [...] midline shift. PARENCHYMA: No territorial loss of renee-white matter differentiation or mass effect. No hyperdense parenchymal hemorrhage. EXTRA-AXIAL SPACE: No hyperdense hemorrhage. Patent cisterns. CALVARIUM: Intact calvarium. SINUSES: Normal aeration of paranasal sinuses and mastoid air cells. VASCULAR: No atherosclerotic changes ADDITIONAL: None Impression: IMPRESSION: 1. No acute intracranial abnormality on noncontrast CT. DICTATION LOCATION: Location 4 CXR Results for orders placed or performed during the hospital encounter of 07/31/19 XR CHEST PA AND LATERAL 2 VW Narrative XR CHEST PA AND LATERAL 2 VW DATE: 07/31/2019 11:41 AM HISTORY: Cough. HIV infection, unspecified symptom status COMPARISON: None FINDINGS: There is no pulmonary infiltrate, pleural effusion, pneumothorax or nodule. The cardiac and mediastinal silhouettes, usman and bony thorax are within normal limits. Impression IMPRESSION: No active pulmonary disease. DICTATION LOCATION: Location 1 - [facility] ECG Results for orders placed or performed during the hospital encounter of 01/01/24 EKG 12-[place]AD [facility] [place] [address] [place] [address] Test Date: 2024-01-01 Pat Name: PHIL CHASE Department: 93 Room: [address] [place] [address] Gender: Male Extracorporeal Circulation Specialist: : 1995 Requested By: Order Number: [id number] Reading MD: Peter Park Measurements Intervals [place] Rate: 69 P: 56 NC: 174 QRS: 56 QRSD: 90 T: 47 QT: 382 QTc: 409 Interpretive Statements Normal sinus rhythm Normal ECG No previous ECG available for comparison Electronically Signed On 01-01-2024 15:07:05 CDT [address] Results for orders placed during the hospital encounter of 01/17/24 CT HEAD WO CONTRAST Narrative CT HEAD WITHOUT CONTRAST WITH REFORMATTED IMAGES [...] midline shift. PARENCHYMA: No territorial loss of renee-white matter differentiation or mass effect. No hyperdense parenchymal hemorrhage. EXTRA-AXIAL SPACE: No hyperdense hemorrhage. Patent cisterns. CALVARIUM: Intact calvarium. SINUSES: Normal aeration of paranasal sinuses and mastoid air cells. VASCULAR: No atherosclerotic changes ADDITIONAL: None Impression : 1. No acute intracranial abnormality on noncontrast CT. DICTATION LOCATION: Location 4 @LASTCTCHESTWRESULTS@ @LASTCTABDWRESULTS@ I have personally reviewed no images Martha Downs MD [facility] Hospitalist Group Greater than 55 minutes spent on direct patient, reconciliation of medical record as available in emr, coordination of outpatient care and follow up, pharmacy selection, medication coverage by insurance/ cost/ [facility] as needed, Performing a medically appropriate examination and/or evaluation, Counseling and educating the patient/family/caregiver, reviewing medications, tests or procedures, Documenting clinical information in the medical record, Referring and communication with other health medicare compliance auditor, Independently interpreting results and communicating results to the patient/family/caregiver as well as follow up plans, Care coordination. This is a snapshot of patients complaint specific H&P, as related to need for Emergent vs Urgent vs acute medical care requiring hospitalization. In no way should this complaint specific H&P represents a complete medical record. Please see complete hospital chart, EMR's, PCM records for full and complete medical record to include complete medical reconciliation. *note is produced with voice to text software and error's may be present* Martha Downs MD [facility] Hospitalist Group documented in this encounter Miscellaneous Notes * Care Plan - Estuardo Matt RN - 02/08/2024 1:26 PM CDT DISCHARGE NOTE The following items have been completed prior to discharge: [x]Discharge follow up plan completed by social work, and present in AVS. [x]Specific follow up appointment made by social work, and contact information in AVS. If the above 2 points are not marked as complete, the following action has been completed. []auto body worker unavailable to see patient prior to discharge, clinical water service supervisor/charge nurse notified to ensure discharge plan is complete and present in AVS. Standard Suicide Risk Assessment Phil Agrees to participate in the risk assessment. [x] Patient is a low or moderate suicide risk based on the C-SSRS Scale [] Patient is a high risk based on the C-SSRS Scale. [] Attending physician has been notified of high suicide risk based on the C- SSRS at (Time) on (Date). Physician recommendation is to continue with discharge. Phil???s progress toward care plan and treatment plan goals are adequate for discharge, or have been resolved. Education has been provided to Phil in verbal and written form regarding discharge medications, follow up appointments, and outpatient and/or crisis resources available to him. Phil and/or caregiver relay understanding of instructions, and he is discharged with belongings to [facility] via cab. [] Patient is being discharged to an inpatient facility. Report has been given to accepting facility. All questions have been answered regarding patient care. Phil escorted off unit on (Date)02/08/24 at (Time)1322. * Care Plan - Mishel Solomon MSW - 02/08/2024 11:47 AM CDT Problem: Discharge Planning Goal: Identify discharge needs upon admission and through discharge Description: Outcome: Resolved AVTAR spoke with medicare compliance auditor Elkin Cabrales, [facility] [phone], who confirms Pt can return today to their inpatient rehab by cab to [address] [place] [address]. He requests that Pt discharge to [facility] with his medications. AVTAR informed CP that Pt's medications werefilled at [facility] and Pt will be discharging with medications in hand. CP agreeable. CP requests that d/c summary be emailed to him at [email or web address]. SW informed CP that SW will emaild/c summary as soon as the note is available. He is agreeable. He reports no questions or concerns. AVTAR notified Pt's [facility] CSS Isadora [phone] of Pt's discharge today and [facility] [place] Pt's [facility] CSS will follow up. AVTAR met 1:1 with Pt on the unit to go over discharge instructions and safety plan. Pt denies SI/HI to this report writer. He is agreeable to returning to [facility] for inpatient rehab by cab. SW informed Pt that SW handed his medications to unit RN. Pt additionally agreeable to following up with [facility] for outpatient services. He reports no questions or concerns. * Care Plan - Salma Schafer RN - 02/08/2024 7:15 AM CDT Phil remained free from harm throughout shift. No signs or reports of discomfort or distress. Phil maintained on rounds every 15 minutes for safety. Staff will continue to monitor Phil for safety and provide support as needed. Sleep Hours Night (6p-6a): 7.5 (02/08/24 06) Sleep/Rest/Relaxation: appears asleep (02/08/24 06) Sleep Location: in bed (02/08/24599) Patient/Guardian agrees with sleep location: Yes (02/08/24599) * Care Plan - Salma Schafer RN - 02/08/2024 5:54 AM CDT Attempted to meet with Phil for assessment. He had fallen asleep and did not rouse to having hisnamed called. Positional changes noted. No c/o and he had no acute distress. Affect asleep, withdrawn. Checked by nursing staff every 15 minutes for safety on unit. Pt's safety maintained. Shift Narrative: Precautions Behavioral Health Precautions: Suicide precautions (07/18/24 2100) Summary of Phil's problems and interventions: (See flowsheets for more detailed summary) Plan of Care Reviewed with: other (see comments) (YURIDIA) (02/07/242099) Patient's Individualized Goal: YURIDIA (02/07/242099) Phil's response to interventions this shift: Other Phil was asleep throughout this shift. Phil's perception of symptoms and progress toward goals: YURIDIA Discharge follow up plan reviewed/discussed during the 1:1 shift interview: no Does the patient have a legal guardian? No If yes, describe: Does the patient have a Power of Animal Ride Manager? No If yes, describe: Legal Status: Voluntary MENTAL HEALTH ASSESSMENT: Behavior: Sedentary;Isolative (02/07/242099) Observed Emotional State: withdrawn (sleeping) (02/07/242099) Verbalized Emotional State: anxiety;depression (02/07/24744) Speech: No problems observed (02/06/24829) Thought Processes: WNL (02/07/24744) Social Judgement: Difficulty in problem solving (02/07/24744) Appearance: Appears stated age (02/07/24744) Risk Assessment 1. Have you wished you were or wished you could go to sleep and not wake up?: Yes (02/07/24744) 2. Have you actually had any thoughts of killing yourself?: No (02/07/24744) 6. Have you ever done anything, started to do anything, or prepared to do anything to end your life?: Yes (02/07/24744) Suicide Risk and Interventions: High (02/07/24744) Depressive Symptoms Symptoms: Other (Comment) (YURIDIA) (02/07/242099) Describe: 12/30 (02/07/24744) Anxiety Symptoms Symptoms: No problems reported or observed (02/07/242099) Describe: 03/01 (02/07/24744) Manic Symptoms Symptoms: No problems reported or observed (02/07/242099) Psychotic Symptoms Hallucination Type: No problems reported or observed (02/07/242099) Delusion Type: No problems reported or observed (02/07/242099) Homicidal Ideation Violence-Risk Towards Others In the past month have you had thoughts of harming another person?: (YURIDIA) (02/07/242099) Do you have thoughts of ending another person's life? : No (02/06/241999) Does the patient verbalize intent to harm another person? : No (02/06/241999) Does the patient have means to harm another person? : No (02/06/241999) Do you hear voices that tell you to harm another person or end their life? : No (02/06/241999) Does patient identify a specific person that they wish to harm? : No (02/06/241999) [facility] Violence Checklist Confusion - Appears obviously confused and disoriented. May be unaware of person, place, time.: (YURIDIA) (02/07/242099) Irritability - Easily annoyed or angered. Unable to tolerate the presence of others.: No (02/06/241999) Boisterous - Behavior is overtly loud or noisy. For example slams doors, shouts out when talking etc.: No (02/06/241999) Verbal Threat - A verbal outburst which is more than just a raised voice and where there is a definite intent to intimidate or threaten another person. For example, verbal attacks, abuse, name-calling, verbally neutral comments uttered in a snarling aggressive manner.: No (02/06/241999) Physical Attacks - Where there is a definite intent to physically threaten another person. For example, the taking of an aggressive stance, the grabbing of another person???s clothing, the raising ofan arm or leg, making a fist or modeling a head-butt directed at another. : No (02/06/241999) Attacks on Objects - An attack directed at an object and not an individual. For example, the indiscriminant throwing of an object, banging or smashing windows, kicking, banging or head butting an object or the smashing of furniture. : No (02/06/241999) Total: 0 (02/06/241999) CHELE Behaviors Assessing Overt Behavior for CHELE: None noted (02/07/242099) Communication Name: Isadora De La Rosa CM Update provided: [] Yes [x] No Summary of conversation: Any concerns (if yes, please explain): Voicemail left for medicare compliance auditor: [] N/A [] No [] Yes: Date/Time Medical Issues/New Medication Teaching Phil did not receive medications this shift. See separate notes for any prn medications provided during shift. * Care Plan - Salma Schafer RN - 02/08/2024 3:27 AM CDT Problem: Discharge Planning Goal: Identify discharge needs upon admission and through discharge Description: Variance GOAL NOT YET MET BUT PATIENT PROGRESSING TOWARD GOAL Problem: Anxiety Goal: Mcc:Maintain anxiety at a functional level as evidenced by absence of disabling behaviors in response to stress by discharge. Variance GOAL NOT YET MET BUT PATIENT PROGRESSING TOWARD GOAL Problem: Depressed Mood Goal: Voicer: Demonstrates reduced symptoms of depression and improved level of functioning by discharge. Variance GOAL NOT YET MET BUT PATIENT PROGRESSING TOWARD GOAL * Care Plan - Salma Schafer RN - 02/07/2024 8:07 PM CDT Assumed care of pt at 1930 after receiving report from day shift staff. * Care Plan - Mishel Solomon MSW - 02/07/2024 2:55 PM CDT Problem: Discharge Planning Goal: Identify discharge needs upon admission and through discharge Description: Outcome: Progressing SW attempted to meet with Pt. Pt asleep. SW will follow up at another time. * Care Plan - Lolis Martin RN - 02/07/2024 7:47 AM CDT Shift narrative: 729: Assumed care upon rounding and receiving report on patient. Phil is calm, cooperative and is observed to be walking down the [place] limping, pt denies any pain. Phil denies SI/HI and contracts for safety. Phil rates depression 12/30 and anxiety 03/01. Phli denies auditory/visual hallucinations and does not appear to be responding to internal stimuli. No delusional statements were voiced this shift. Patient is med compliant. Phil is agreeable tolet staff know if any of these thoughts change and they feel as if they cannot handle them. This RNand patient conversed about their treatment plan, and they were encouraged to work on their safety plan. Encouraged pt to complete ADLs, participate in groups, and speak with their provider today. Saf ety and comfort rounds provided every 15 minutes. 1899: Report given to [facility] night monitor Nurse. Patient's Individualized Goal: go to groups (02/07/24744) Precautions/Behavioral Health Precautions: Suicide precautions (02/06/241999) Does the patient have a legal guardian? No Does the patient have a Power of Animal Ride Manager? No Legal Status: Voluntary Communication Name: On PHI form Update provided: [] Yes [x] No Summary of conversation: Any concerns (if yes, please explain): N/A Voicemail left for medicare compliance auditor: [x] N/A [] No [] Yes: Date/Time MENTAL HEALTH ASSESSMENT: Behavior: Calm;Cooperative (02/07/24744) Observed Emotional State: accepting;calm;cooperative (02/07/24744) Verbalized Emotional State: anxiety;depression (02/07/24744) Speech: No problems observed (02/06/24829) Thought Processes: WNL (02/07/24744) Social Judgement: Difficulty in problem solving (02/07/24744) Appearance: Appears stated age (02/07/24744) Risk Assessment 1. Have you wished you were or wished you could go to sleep and not wake up?: Yes (02/07/24744) 2. Have you actually had any thoughts of killing yourself?: No (02/07/24744) 6. Have you ever done anything, started to do anything, or prepared to do anything to end your life?: Yes (02/07/24744) Suicide Risk and Interventions: High (02/07/24744) Depressive Symptoms Symptoms: Change in energy level;Isolative;Loss of interest (02/07/24744) Describe: 12/30 (02/07/24744) Anxiety Symptoms Symptoms: Generalized (02/07/24744) Describe: 03/01 (02/07/24744) Manic Symptoms Symptoms: No problems reported or observed (02/07/24744) Psychotic Symptoms Hallucination Type: No problems reported or observed (02/07/24744) Delusion Type: No problems reported or observed (02/07/24744) Homicidal Ideation Violence-Risk Towards Others In the past month have you had thoughts of harming another person?: No (02/06/24829) Do you have thoughts of ending another person's life? : No (02/06/241999) Does the patient verbalize intent to harm another person? : No (02/06/241999) Does the patient have means to harm another person? : No (02/06/241999) Do you hear voices that tell you to harm another person or end their life? : No (02/06/241999) Does patient identify a specific person that they wish to harm? : No (02/06/241999) Broset [facility] Violence Checklist Confusion - Appears obviously confused and disoriented. May be unaware of person, place, time.: No (02/06/241999) Irritability - Easily annoyed or angered. Unable to tolerate the presence of others.: No (02/06/241999) Boisterous - Behavior is overtly loud or noisy. For example slams doors, shouts out when talking etc.: No (02/06/241999) Verbal Threat - A verbal outburst which is more than just a raised voice and where there is a definite intent to intimidate or threaten another person. For example, verbal attacks, abuse, name-calling, verbally neutral comments uttered in a snarling aggressive manner.: No (02/06/241999) Physical Attacks - Where there is a definite intent to physically threaten another person. For example, the taking of an aggressive stance, the grabbing of another person???s clothing, the raising ofan arm or leg, making a fist or modeling a head-butt directed at another. : No (02/06/241999) Attacks on Objects - An attack directed at an object and not an individual. For example, the indiscriminant throwing of an object, banging or smashing windows, kicking, banging or head butting an object or the smashing of furniture. : No (02/06/241999) Total: 0 (02/06/241999) CHELE Behaviors Assessing Overt Behavior for CHELE: None noted (02/06/241999) VITALS Last BP: 133/61 (02/06/241999) Last Pulse: 80 (02/06/241999) Last Temp: 98.3 ??F (36.8 ??C) (02/06/241999) Last Resp: 18 (02/06/241999) Medical Issues/New Medication Teaching Phil was informed about benefits and any potential clinically significant side effects or other concerns regarding the administration of the medication he was given. Problem: Discharge Planning Goal: Identify discharge needs upon admission and through discharge Description: Outcome: Variance Problem: Anxiety Goal: Mcc:Maintain anxiety at a functional level as evidenced by absence of disabling behaviors in response to stress by discharge. Outcome: Variance Problem: Depressed Mood Goal: Mcc: Demonstrates reduced symptoms of depression and improved level of functioning by discharge. Outcome: Variance * Care Plan - William Ny RN - 02/07/2024 5:56 AM CDT Phil remained free from harm throughout shift. No signs or reports of discomfort or distress. Phil maintained on rounds every 15 minutes for safety. Staff will continue to monitor Phil for safety and provide support as needed. Sleep Hours Night (6p-6a): 10.5 (02/06/24599) Sleep/Rest/Relaxation: no problem identified;appears asleep (02/07/24599) Sleep Location: Assigned Bed (02/07/24599) Patient/Guardian agrees with sleep location: Yes (02/07/24599) If applicable, detailed reason for alternate sleep location: Apprenticeship Consultant/Nursing leader notified: Mental Health Assessment:: ; If yes, see full assessment in flowsheets. Thought Assessment Orientation: person;place;time;situation (02/06/241999) Appearance: Appears stated age (02/06/241999) Observed Emotional State: accepting;hopeful (02/06/241999) Social Judgement: Difficulty in problem solving (02/06/241999) Verbalized Emotional State: anxiety;depression (02/06/241999) Behavior: Calm;Cooperative (02/06/241999) Speech: WNL (02/06/241999) Thought Processes: WNL (02/06/241999) Delusion Type: No problems reported or observed (02/06/241999) Depressive Symptoms: Change in energy level (02/06/241999) Anxiety Symptoms: Generalized (02/06/241999) Manic Symptoms: No problems reported or observed (02/06/241999) Hallucination Type: No problems reported or observed (02/06/241999) Sleep Hours Night (6p-6a): 10.5 (02/06/24 0600) * [facility] Physician Narrative - William Ny RN - 02/06/2024 10:45 PM CDT Shift narrative: 1929: Assumed care upon rounding and receiving report on patient. X-ray report is normal Phil is calm, cooperative in the unit this evening. Patient was observed in the room awake during start of shift. He verbalizes, his goal To try and get a court order for my dad who is trying so hard to come back in my life . Phil denies SI/HI and contracts for safety. Phil rates depression 6/10 and anxiety 9/10. Phil denies auditory/visual hallucinations and does not appear to be responding to internal stimuli. No delusional statements were voiced this shift. Patient med compliant. Phil has been attending groups. Phil is agreeable to let staff know if any of these thoughts change and they feel as if they cannot handle them. This RN and patient conversed about their treatment plan, and they were encouraged to work on theirsafety plan. Encouraged pt to complete ADLs, participate in groups, and speak with their provider tomorrow. Patient was educated that if any needs arise throughout the night, staff would be present to assist. Will continue to provide quality care and compassion as to pt needs. Safety and comfort rounds provided every 15 minutes. 0700: Report given to [facility] day shift Nurse. Patient's Individualized Goal: not stated (02/06/241999) Precautions/Behavioral Health Precautions: Suicide precautions (02/06/241999) Does the patient have a legal guardian? No Does the patient have a Power of Animal Ride Manager? No Legal Status: Voluntary MENTAL HEALTH ASSESSMENT: Behavior: Calm;Cooperative (02/06/241999) Observed Emotional State: accepting;hopeful (02/06/241999) Verbalized Emotional State: anxiety;depression (02/06/241999) Speech: No problems observed (02/06/24 08) Thought Processes: WNL (02/06/241999) Social Judgement: Difficulty in problem solving (02/06/241999) Appearance: Appears stated age (02/06/241999) Risk Assessment 1. Have you wished you were or wished you could go to sleep and not wake up?: No (02/06/241999) 2. Have you actually had any thoughts of killing yourself?: No (02/06/241999) 6. Have you ever done anything, started to do anything, or prepared to do anything to end your life?: No (02/06/241999) Suicide Risk and Interventions: Moderate (02/06/241999) Depressive Symptoms Symptoms: Change in energy level (02/06/241999) Describe: 12/30 (02/06/241999) Anxiety Symptoms Symptoms: Generalized (02/06/241999) Describe: 04/01 (02/06/241999) Manic Symptoms Symptoms: No problems reported or observed (02/06/241999) Psychotic Symptoms Hallucination Type: No problems reported or observed (02/06/241999) Delusion Type: No problems reported or observed (02/06/241999) Homicidal Ideation Violence-Risk Towards Others In the past month have you had thoughts of harming another person?: No (02/06/24829) Do you have thoughts of ending another person's life? : No (02/06/241999) Does the patient verbalize intent to harm another person? : No (02/06/241999) Does the patient have means to harm another person? : No (02/06/241999) Do you hear voices that tell you to harm another person or end their life? : No (02/06/241999) Does patient identify a specific person that they wish to harm? : No (02/06/241999) Broset Broset Violence Checklist Confusion - Appears obviously confused and disoriented. May be unaware of person, place, time.: No (02/06/241999) Irritability - Easily annoyed or angered. Unable to tolerate the presence of others.: No (02/06/241999) Boisterous - Behavior is overtly loud or noisy. For example slams doors, shouts out when talking etc.: No (02/06/241999) Verbal Threat - A verbal outburst which is more than just a raised voice and where there is a definite intent to intimidate or threaten another person. For example, verbal attacks, abuse, name-calling, verbally neutral comments uttered in a snarling aggressive manner.: No (02/06/241999) Physical Attacks - Where there is a definite intent to physically threaten another person. For example, the taking of an aggressive stance, the grabbing of another person???s clothing, the raising ofan arm or leg, making a fist or modeling a head-butt directed at another. : No (02/06/241999) Attacks on Objects - An attack directed at an object and not an individual. For example, the indiscriminant throwing of an object, banging or smashing windows, kicking, banging or head butting an object or the smashing of furniture. : No (02/06/241999) Total: 0 (02/06/241999) CHELE Behaviors Assessing Overt Behavior for CHELE: None noted (02/06/241999) VITALS Last BP: 133/61 (02/06/241999) Last Pulse: 80 (02/06/241999) Last Temp: 98.3 ??F (36.8 ??C) (02/06/241999) Last Resp: 18 (02/06/241999) Medical Issues/New Medication Teaching Phil was informed about benefits and any potential clinically significant side effects or other concerns regarding the administration of the medication he was given. Night Note Phil remained free from harm throughout shift. Patient observed to be in bed with eyes closed. 15 minute safety round checks completed with no signs or reports of discomfort or distress. Breathingis easy and unlabored. Staff will continue to monitor Phil for safety and provide support as needed. * Care Plan - William Ny RN - 02/06/2024 10:43 PM CDT During this shift, Phil was given the prn medication atarax 50 mg for anxiety , as demonstrated by the following behavior: score of 9/10 (See MAR for administration time.) Approximately 1 hour after medication administration, Phil appeared or reported the following: relaxed and falling asleep. Problem: Pain, Potential/Actual Goal: Verbalizes/displays acceptable comfort level or baseline comfort level Description: Outcome: Progressing Problem: Infection Risk/Actual Goal: Infection Risk/Actual: Infection prevention, control, or resolution by discharge Description: Outcome: Progressing Problem: Safety/Fall Goal: Safety/Fall: Absence of fall, injury, harm during hospitalization Description: Absence of/reduce fall risk during current hospitalization related to: 1. History of falls 2. Mobility deficits 3. Medications 4. Mental status/LOC/awareness 5. Toileting needs 6. Volume/electrolyte status 7. Communication/sensory 8. Behavior Outcome: Progressing Problem: Discharge Planning Goal: Identify discharge needs upon admission and through discharge Description: Outcome: Progressing Problem: Suicide Risk/Attempt Goal: Mcc: Reduction of suicidal thoughts and absence of suicidal behavior throughout admission and establish a safety plan by discharge. Outcome: Progressing Problem: Major Depressive Disorder (Pediatric) Goal: Prevent/Manage Potential Problems Description: Signs and symptoms of listed problems will be absent or manageable. Outcome: Progressing Problem: Anxiety Goal: Mcc:Maintain anxiety at a functional level as evidenced by absence of disabling behaviors in response to stress by discharge. Outcome: Progressing Problem: Depressed Mood Goal: Mcc: Demonstrates reduced symptoms of depression and improved level of functioning by discharge. Outcome: Progressing Problem: Post Fall Goal: Patient safety maintained post fall and absence of additional falls during hospitalization Outcome: Progressing Problem: Coping Compromised r/t Trauma History Goal: Voicer: Verbalizes and enacts adaptive coping mechanisms by discharge. Outcome: Progressing During this shift, Phil was given the prn medication trazodone for insomnia, as demonstrated by the following behavior: wakefulness (See MAR for administration time.) Approximately 1 hour after medication administration, Phil appeared or reported the following: pt is sleeping already at this time * Care Plan - William Ny RN - 02/06/2024 8:00 PM CDT During this shift, Phil was given the prn medication tramadol 50 mg for pain, as demonstrated bythe following behavior: pain score 0/10 (See MAR for administration time.) Approximately 1 hour after medication administration, Phil appeared or reported the following: pt was pain free and relaxed after 1 hour * Care Plan - Shaina Berger RN - 02/06/2024 3:25 PM CDT Pt returned from X-ray with BHT * Care Plan - Mishel Solomon MSW - 02/06/2024 1:37 PM CDT Problem: Discharge Planning Goal: Identify discharge needs upon admission and through discharge Description: Outcome: Progressing AVTAR spoke with Elkinkwame Cabrales, [facility], who confirms they are holding Pt's bed and Pt may return to their inpatient rehab upon discharge. Confirmed address as [address] [place] [id number]. AVTAR informed Elkin that at this time, Pt is anticipated to dischargetoward the end of the week, but AVTAR will follow up if anticipated discharge date changes. He is agreeable. He requests d/c summary on day of d/c to be emailed to him at [email or web address]. He is agreeable to Pt returning by cab on day of d/c. * Care Plan - June Spears RN - 02/06/2024 8:50 AM CDT Shift Narrative: 729: Nursing report received. Care assumed of patient. 829: Met with patient 1:1. Patient is calm and cooperative for assessment. Patient presents with good eye contact and clear speech. Patient is A&O X 4. Thought process appears to be logical at this time. Patient is pleasant and appropriate on the unit. Patient was incontinent of bowel this morning and took a shower to clean himself up. Patient is seen walking with a limp due to hip pain and a transfer to has been requested. Patient states he slept well last night. Patient is guarded andquiet for assessment and appears with a flat affect. Patient appears anxious and sad. Patient states he is currently inpatient in rehab but also has his own place. Rates anxiety / and depression 6/10 with 10 being the highest. Patient still endorses thoughts to hurt himself, stating they are always there , thoughts are passive and he has no plan at this time. Denies A/V/T hallucinations. Patient does contract for safety. Precautions/Behavioral Health Precautions: Suicide precautions (02/06/24829) Summary of Phil's problems and interventions: (See flowsheets for more detailed summary) Plan of Care Reviewed with: patient (02/06/24829) Patient's Individualized Goal: go to groups (02/06/24829) Phil's response to interventions this shift: Accepting Phil's perception of symptoms and progress toward goals: improved Discharge follow up plan reviewed/discussed during the 1:1 shift interview: yes Does the patient have a legal guardian? No If yes, describe: Does the patient have a Power of Animal Ride Manager? No If yes, describe: Legal Status: Voluntary MENTAL HEALTH ASSESSMENT: Behavior: Calm;Cooperative;Guarded (02/06/24829) Observed Emotional State: accepting;cooperative;calm;pleasant;quiet;sad (02/06/24829) Verbalized Emotional State: anxiety;depression;suicidal thoughts (02/06/24829) Speech: No problems observed (02/06/24829) Thought Processes: Logical (02/06/24829) Social Judgement: Difficulty in problem solving (02/06/24829) Appearance: Appears stated age (02/06/24829) Risk Assessment 1. Have you wished you were or wished you could go to sleep and not wake up?: Yes (02/05/242004) 2. Have you actually had any thoughts of killing yourself?: Yes (02/06/24829) 6. Have you ever done anything, started to do anything, or prepared to do anything to end your life?: No (02/06/24829) Suicide Risk and Interventions: Low (02/06/24829) Depressive Symptoms Symptoms: Change in energy level;Loss of interest;Isolative (02/06/24829) Describe: 12/30 (02/06/24829) Anxiety Symptoms Symptoms: Generalized (02/06/24829) Describe: 03/01 (02/06/24829) Manic Symptoms Symptoms: No problems reported or observed (02/06/24829) Psychotic Symptoms Hallucination Type: No problems reported or observed (02/06/24829) Delusion Type: No problems reported or observed (02/06/24829) Homicidal Ideation Violence-Risk Towards Others In the past month have you had thoughts of harming another person?: No (02/06/24829) Do you have thoughts of ending another person's life? : No (02/04/242004) Does the patient verbalize intent to harm another person? : No (02/04/242004) Does the patient have means to harm another person? : No (02/04/242004) Do you hear voices that tell you to harm another person or end their life? : No (02/04/242004) Does patient identify a specific person that they wish to harm? : No (02/04/242004) Broset Broset Violence Checklist Confusion - Appears obviously confused and disoriented. May be unaware of person, place, time.: No (02/06/24829) Irritability - Easily annoyed or angered. Unable to tolerate the presence of others.: No (02/06/24829) Boisterous - Behavior is overtly loud or noisy. For example slams doors, shouts out when talking etc.: No (02/06/24829) Verbal Threat - A verbal outburst which is more than just a raised voice and where there is a definite intent to intimidate or threaten another person. For example, verbal attacks, abuse, name-calling, verbally neutral comments uttered in a snarling aggressive manner.: No (02/06/24829) Physical Attacks - Where there is a definite intent to physically threaten another person. For example, the taking of an aggressive stance, the grabbing of another person???s clothing, the raising ofan arm or leg, making a fist or modeling a head-butt directed at another. : No (02/06/24829) Attacks on Objects - An attack directed at an object and not an individual. For example, the indiscriminant throwing of an object, banging or smashing windows, kicking, banging or head butting an object or the smashing of furniture. : No (02/06/24829) Total: 0 (02/06/24829) CHELE Behaviors Assessing Overt Behavior for CHELE: None noted (02/06/24829) Medical Issues/New Medication Teaching Phil was informed about benefits and any potential clinically significant side effects or other concerns regarding the administration of the medication he was given. See separate notes for any prn medications provided during shift. Problem: Pain, Potential/Actual Goal: Verbalizes/displays acceptable comfort level or baseline comfort level Description: Outcome: Progressing Flowsheets (Taken 02/05/20242004 by Jd Razo GN) Pain Management Interventions: single medication modality relaxation Problem: Infection Risk/Actual Goal: Infection Risk/Actual: Infection prevention, control, or resolution by discharge Description: Outcome: Progressing Flowsheets (Taken 02/06/2024829) Hygiene Care: showered Problem: Safety/Fall Goal: Safety/Fall: Absence of fall, injury, harm during hospitalization Description: Absence of/reduce fall risk during current hospitalization related to: 1. History of falls 2. Mobility deficits 3. Medications 4. Mental status/LOC/awareness 5. Toileting needs 6. Volume/electrolyte status 7. Communication/sensory 8. Behavior Outcome: Progressing Flowsheets Taken 02/06/2024829 by June Spears RN Safety Checks: Safety check completed Taken 02/05/2024 1240 by Estuardo Matt RN High Fall Risk Interventions Initiated & Maintained: Yes Add'l Individualized High Fall Risk Interventions: None needed Problem: Discharge Planning Goal: Identify discharge needs upon admission and through discharge Description: Outcome: Progressing Flowsheets Taken 02/06/2024 08 by June Spears RN Plan of Care Reviewed with: patient Patient's Individualized Goal: go to groups Taken 02/04/2024 1846 by Shaina Berger RN Anticipated Discharge Needs: Rehab Problem: Suicide Risk/Attempt Goal: Mcc: Reduction of suicidal thoughts and absence of suicidal behavior throughout admission and establish a safety plan by discharge. Outcome: Progressing Flowsheets (Taken 02/06/2024829) Suicide Risk/Attempt Short Term Goals: By end of shift Seeks out staff if suicidal thoughts occur Identifies at least one protective factor Identifies individual symptoms of worsening depression Recognizes/verbalizes decrease of suicidal thoughts Develops safety plan Identifies feelings and hope for future Suicide Risk/Attempt Interventions: Suicide risk assessment completed Healthy sleep patterns and routine encouraged Nutrition appropriate for body requirements promoted Social interaction encouraged Exercise promoted Emotional support provided Trusting relationship established Active listening techniques utilized Calming/relaxation techniques promoted Individual coping techniques identified Physically safe environment provided Harmful objects removed from room Unsafe patient belongings secured Appropriate clothing provided Group therapy participation encouraged Problem: Major Depressive Disorder (Pediatric) Goal: Prevent/Manage Potential Problems Description: Signs and symptoms of listed problems will be absent or manageable. Outcome: Progressing Problem: Anxiety Goal: Mcc:Maintain anxiety at a functional level as evidenced by absence of disabling behaviors in response to stress by discharge. Outcome: Progressing Flowsheets (Taken 02/06/2024829) Anxiety Short Term Goals: By end of shift Verbalizes physical symptoms of anxiety Verbalizes behaviors that become evident as anxiety arises Demonstrates strategies to interrupt escalation of anxiety Anxiety Interventions: Identification of anxiety symptoms facilitated Identification of anxiety triggers facilitated Relaxation techniques discussed/promoted Thought stopping promoted Group therapy participation encouraged Healthy sleep patterns and routine encouraged Positive reinforcement provided Emotional support provided Trusting relationship established Nutrition appropriate for body requirements promoted Problem: Depressed Mood Goal: Mcc: Demonstrates reduced symptoms of depression and improved level of functioning by discharge. Outcome: Progressing Flowsheets (Taken 02/06/2024829) Depressed Mood Short Term Goals: By end of shift Identifies life stressors and management strategies Identifies individual symptoms that signify worsening depression Idenitifes feelings and hope for future Demonstrates ability to perform self-care activities Depressed Mood Interventions: Identification of life stressors that lead to worsening depression facilitated Management of anxiety and agitation promoted Assisted to identify effective coping mechanisms Thought stopping promoted Diversional activities encouraged Increased daytime activity promoted Problem solving encouraged Self-care activities encouraged Social interaction encouraged Active listening techniques utilized Group therapy participation encouraged Calming/relaxation techniques promoted Healthy sleep patterns and routine encouraged Positive reinforcement provided Emotional support provided Trusting relationship established Nutrition appropriate for body requirements promoted Problem: Post Fall Goal: Patient safety maintained post fall and absence of additional falls during hospitalization Outcome: Progressing * Care Plan - Jd Razo GN - 02/05/2024 10:02 PM CDT Precautions: Behavioral Health Precautions: Suicide precautions (Fall) (02/05/242004) Shift Narrative: 1900: Assumed care of patient following [id number] report. 2004: Phil was observed to be isolative to room. Phil reports to RN he would like to wait until tomorrow to go get the xray of his hip. Patient is observed ambulating with baseline limp, no other difficulty ambulating noted. Patient denies SI/HI. Phil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 DAILY, First dose on Sun02/05/24 at 1400, Until Discontinued, Routine Given 02/08/2024 8:12 AM CDT 1 Tablet Given 02/07/2024 9:00 AM CDT 1 Tablet Given 02/06/2024 8:33 AM CDT 1 Tablet busPIRone (BUSPAR) tablet 10 mg 10 mg, Oral, THREE TIMES DAILY, First dose (after last modification) on Sun02/06/24 at 1300, Until Discontinued, Routine Given 02/08/2024 12:55 PM CDT 10 mg Given 02/08/2024 8:12 AM CDT 10 mg Given 02/07/2024 7:34 PM CDT 10 mg busPIRone (BUSPAR) tablet 5 mg 5 mg, Oral, THREE TIMES DAILY, First dose on Sun02/05/24 at 1300, Until Discontinued, Routine Given 02/06/2024 8:33 AM CDT 5 mg Given 02/05/2024 5:23 PM CDT 5 mg Given 02/05/2024 1:18 PM CDT 5 mg diphenhydrAMINE (BENADRYL) injection 50 mg 50 mg, IM, EVERY 2 HOURS PRN, 2 doses, Starting on Sun02/04/24 at 1853, Until Sun02/08/24 at 1531, Other (See Comment), extrapyramidal symptom prevention, Routine DULoxetine (CYMBALTA) capsule 30 mg 30 mg, Oral, ONE TIME ONLY, 1 dose, On Sun02/07/24 at 1130, Routine Given 02/07/2024 12:42 PM CDT 30 mg DULoxetine (CYMBALTA) capsule 60 mg 60 mg, Oral, DAILY, First dose on Sun02/05/24 at 1300, Until Discontinued, Routine Given 02/07/2024 9:16 AM CDT 60 mg Given 02/06/2024 8:33 AM CDT 60 mg Given 02/05/2024 1:18 PM CDT 60 mg DULoxetine (CYMBALTA) capsule 90 mg 90 mg, Oral, DAILY, First dose (after last modification) on Sun02/08/24 at 0900, Until Discontinued, Routine Given 02/08/2024 8:11 AM CDT 90 mg haloperidol lactate (HALDOL) injection 5 mg 5 mg, IM, EVERY 2 HOURS PRN, 2 doses, Starting on Sun02/04/24 at 1853, Until Sun02/08/24 at 1531, Other (See Comment), agitated psychosis, Routine hydrOXYzine HCL (ATARAX) tablet 50 mg 50 mg, Oral, EVERY 1 HOUR PRN, 2 doses, Starting on Sun02/04/24 at 1853, Until Sun02/05/24 at 1318, Anxiety, Routine Given 02/05/2024 1:18 PM CDT 50 mg Given 02/04/2024 8:17 PM CDT 50 mg hydrOXYzine HCL (ATARAX) tablet 50 mg 50 mg, Oral, EVERY 6 HOURS PRN, Starting on Sun02/06/24 at 1132, Until Sun02/08/24 at 1531, Anxiety, Routine Given 02/06/2024 8:04 PM CDT 50 mg ibuprofen (MOTRIN) tablet 400 mg 400 mg, Oral, EVERY 6 HOURS PRN, Starting on Sun02/04/24 at 1853, Until Sun02/08/24 at 1531, Other (See Comment), See Admin Instructions, Routine loperamide (IMODIUM) capsule 2 mg 2 mg, Oral, EVERY 4 HOURS PRN, Starting on Sun02/04/24 at 1852, Until Sun02/08/24 at 1531, Diarrhea/Loose Stools, Routine methocarbamoL (ROBAXIN) tablet 750 mg 750 mg, Oral, EVERY 8 HOURS PRN, Starting on Sun02/07/24 at 1232, Until Sun02/08/24 at 1531, Spasm, back/hip pain, Routine naloxone (NARCAN) 1 mg/mL injection 0.1-0.4 mg 0.1-0.4 mg, IV, SEE ADMIN INSTRUCTIONS, Starting on Sun02/05/24 at 1227, Until Sun02/08/24 at 1531, Routine polyethylene glycol (MIRALAX) packet 17 Gram 17 Gram, Oral, EVERY 12 HOURS PRN, Starting on Sun02/04/24 at 1852, Until Sun02/08/24 at 1531, Constipation, or over 48 hours since last BM, Routine promethazine (PHENERGAN) tablet 25 mg 25 mg, Oral, EVERY 4 HOURS PRN, Starting on Sun02/04/24 at 1852, Until Sun02/08/24 at 1531, Nausea, Routine traMADoL (ULTRAM) tablet 50 mg 50 mg, Oral, EVERY 6 HOURS PRN, Starting on Sun02/05/24 at 1227, Until Sun02/08/24 at 1531, Pain (See admin instructions), Routine Given 02/06/2024 8:04 PM CDT 50 mg Given 02/05/2024 8:20 PM CDT 50 mg traZODone (DESYREL) tablet 100 mg 100 mg, Oral, NIGHTLY PRN, Starting on Sun02/04/24 at 1852, Until Sun02/08/24 at 1531, Insomnia, Routine Given 02/06/2024 8:04 PM CDT 100 mg Given 02/05/2024 8:20 PM CDT 100 mg Given 02/04/2024 8:17 PM CDT 100 mg documented in this encounter Active and Recently Administered Medications Times are shown in CDT. Scheduled Medication Order 02/06/2024 02/07/2024 02/08/2024 ARIPiprazole (ABILIFY) tablet 15 mg 15 mg, Oral, DAILY, First dose on Sun02/05/24 at 1300, Until Discontinued, Routine 0833 (Given - Provider: June Spears RN) 0916 (Given - Provider: Lolis Martin RN) 0812 (Given - Provider: Estuardo Matt, VICTOR MANUEL) bictegravir-emtricitab ine-tenofovir alafenam (BIKTARVY) 50-200-25 mg per tablet 1 Tablet 1 Tablet, Oral, DAILY, First dose on Sun02/05/24 at 1400, Until Discontinued, Routine 0833 (Given - Provider: June Spears RN) 0900 (Given - Provider: Lolis Martin, VICTOR MANUEL) 0812 (Given - Provider: Estuardo Matt, VICTO RMANUEL) busPIRone (BUSPAR) tablet 10 mg 10 mg, Oral, THREE TIMES DAILY, First dose (after last modification) on Sun02/06/24 at 1300, Until Discontinued, Routine 1251 (Given - Provider: June Spears RN)1757 (Given - Provider: Shaina Berger RN) 0916 (Given - Provider: Lolis Martin RN)1242 (Given - Provider: Lolis Martin, RN)1934 (Given - Provider: Lolis Martin, VICTOR MANUEL) 0812 (Given - Provider: Estuardo Matt, VICTOR MANUEL)1255 (Given - Provider: Estuardo Matt, VICTOR MANUEL) busPIRone (BUSPAR) tablet 5 mg (CANCELED) 5 mg, Oral, THREE TIMES DAILY, First dose on Sun02/05/24 at 1300, Until Discontinued, Routine 0833 (Given - Provider: June Spears RN) DULoxetine (CYMBALTA) capsule 30 mg (COMPLETED) 30 mg, Oral, ONE TIME ONLY, 1 dose, On Sun02/07/24 at 1130, Routine 1242 (Given - Provider: Lolis Martin, RN) DULoxetine (CYMBALTA) capsule 60 mg (CANCELED) 60 mg, Oral, DAILY, First dose on Sun02/05/24 at 1300, Until Discontinued, Routine 0833 (Given - Provider: June Spears RN) 0916 (Given - Provider: Lolis Martin, VICTOR MANUEL) DULoxetine (CYMBALTA) capsule 90 mg 90 mg, Oral, DAILY, First dose (after last modification) on Sun02/08/24 at 0900, Until Discontinued, Routine 0811 (Given - Provider: Estuardo Matt RN) naloxone (NARCAN) 1 mg/mL injection 0.1-0.4 mg 0.1-0.4 mg, IV, SEE ADMIN INSTRUCTIONS, Starting on Sun02/05/24 at 1227, Until Sun02/08/24 at 1531, Routine PRN Medication Order 02/06/2024 02/07/2024 02/08/2024 acetaminophen (TYLENOL) tablet 650 mg 650 mg, Oral, EVERY 6 HOURS PRN, Starting on Sun02/04/24 at 1853, Until Sun02/08/24 at 1531, Other (See Comment), See Admin Instructions, Routine aluminum - magnesium - simethicone (MYLANTA) 200-200-20 mg/5 mL oral suspension 30 mL 30 mL, Oral, EVERY 6 HOURS PRN, Starting on Sun02/04/24 at 1852, Until Sun02/08/24 at 1531, Other (See Comment), GI Upset, Routine benztropine (COGENTIN) injection 1 mg(Linked Group 1) 1 mg, IM, EVERY 12 HOURS PRN, Starting on Sun02/04/24 at 1852, Until Sun02/08/24 at 1531, Other (See Comment), EPS Symptoms: dystonia, parkinsonisms, or tardive dyskinesia, Routine benztropine (COGENTIN) tablet 1 mg(Linked Group 1) 1 mg, Oral, EVERY 12 HOURS PRN, Starting on Sun02/04/24 at 1852, Until Sun02/08/24 at 1531, Other (See Comment), EPS Symptoms: dystonia, parkinsonisms, or tardive dyskinesia, Routine diphenhydrAMINE (BENADRYL) injection 50 mg(Linked Group 2) 50 mg, IM, EVERY 2 HOURS PRN, 2 doses, Starting on Sun02/04/24 at 1853, Until Sun02/08/24 at 1531, Other (See Comment), extrapyramidal symptom prevention, Routine haloperidol lactate (HALDOL) injection 5 mg(Linked Group 2) 5 mg, IM, EVERY 2 HOURS PRN, 2 doses, Starting on Sun02/04/24 at 1853, Until Sun02/08/24 at 1531, Other (See Comment), agitated psychosis, Routine hydrOXYzine HCL (ATARAX) tablet 50 mg 50 mg, Oral, EVERY 6 HOURS PRN, Starting on Sun02/06/24 at 1132, Until Sun02/08/24 at 1531, Anxiety, Routine 2003 (Given - Provider: William Ny RN) ibuprofen (MOTRIN) tablet 400 mg 400 mg, Oral, EVERY 6 HOURS PRN, Starting on Sun02/04/24 at 1853, Until Sun02/08/24 at 1531, Other (See Comment), See Admin Instructions, Routine loperamide (IMODIUM) capsule 2 mg 2 mg, Oral, EVERY 4 HOURS PRN, Starting on Sun02/04/24 at 1852, Until Sun02/08/24 at 1531, Diarrhea/Loose Stools, Routine methocarbamoL (ROBAXIN) tablet 750 mg 750 mg, Oral, EVERY 8 HOURS PRN, Starting on Sun02/07/24 at 1232, Until Sun02/08/24 at 1531, Spasm, back/hip pain, Routine polyethylene glycol (MIRALAX) packet 17 Gram 17 Gram, Oral, EVERY 12 HOURS PRN, Starting on Sun02/04/24 at 1852, Until Sun02/08/24 at 1531, Constipation, or over 48 hours since last BM, Routine promethazine (PHENERGAN) tablet 25 mg 25 mg, Oral, EVERY 4 HOURS PRN, Starting on Sun02/04/24 at 1852, Until Sun02/08/24 at 1531, Nausea, Routine traMADoL (ULTRAM) tablet 50 mg 50 mg, Oral, EVERY 6 HOURS PRN, Starting on Sun02/05/24 at 1227, Until Sun02/08/24 at 1531, Pain (See admin instructions), Routine 2003 (Given - Provider: William Ny RN) traZODone (DESYREL) tablet 100 mg 100 mg, Oral, NIGHTLY PRN, Starting on Sun02/04/24 at 1852, Until Sun02/08/24 at 1531, Insomnia, Routine 2003 (Given - Provider: William Ny RN) Linked Groups Order Group 1: benztropine (COGENTIN) tablet 1 mgJump to med 1 mg, Oral, EVERY 12 HOURS PRN, Starting on Sun02/04/24 at 1852, Until Sun02/08/24 at 1531, Other (See Comment), EPS Symptoms: dystonia, parkinsonisms, or tardive dyskinesia, Routine Or benztropine (COGENTIN) injection 1 mgJump to med 1 mg, IM, EVERY 12 HOURS PRN, Starting on Sun02/04/24 at 1852, Until Sun02/08/24 at 1531, Other (See Comment), EPS Symptoms: dystonia, parkinsonisms, or tardive dyskinesia, Routine Group 2: haloperidol lactate (HALDOL) injection 5 mgJump to med 5 mg, IM, EVERY 2 HOURS PRN, 2 doses, Starting on Sun02/04/24 at 1853, Until Sun02/08/24 at 1531, Other (See Comment), agitated psychosis, Routine And diphenhydrAMINE (BENADRYL) injection 50 mgJump to med 50 mg, IM, EVERY 2 HOURS PRN, 2 doses, Starting on Sun02/04/24 at 1853, Until Sun02/08/24 at 1531, Other (See Comment), extrapyramidal symptom prevention, Routine documented in this encounter
--- OUTSIDE RECORDS SUMMARY | 2024-08-10 03:47 | XMS_ITS | Encounter Summary ---
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
--- OUTSIDE RECORDS SUMMARY | 2024-08-10 03:47 | XMS_ITS | Encounter Summary ---
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
--- OUTSIDE RECORDS SUMMARY | 2024-08-10 03:47 | XMS_ITS | Encounter Summary ---
Author Organization [facility] Address 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
--- OUTSIDE RECORDS SUMMARY | 2024-08-10 03:47 | XMS_ITS | Encounter Summary ---
Author Organization [facility] Address [address] Attn: Epic Prelude ADT [place] RAYO [address] Care Team Providers Care Certified Residential Medication Aide Name Role Phone Unavailable Primary Care Provider Unavailabl e Encounter Details Date Type Department Care Team (Latest Contact Info) Description 03/03/2024 Travel Social History Tobacco Use Types Packs/Day Years Used Date Smoking Tobacco: Former Cigarettes 0.3 3 2 019 - 2021 Smokeless Tobacco: Never Alcohol Use Standard Drinks/Week Comments Yes 0 (1 standard drink = 0.6 oz pur e alcohol) sometimes Feeling Safe Answer Date Recorded Are you in a relationship wi th someone who hurts you emotionally and/or physically? 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
--- OUTSIDE RECORDS SUMMARY | 2024-08-10 03:47 | XMS_ITS | Encounter Summary ---
Author Organization [facility] Address 

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
--- OUTSIDE RECORDS SUMMARY | 2024-08-10 03:47 | XMS_ITS | Encounter Summary ---
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
--- OUTSIDE RECORDS SUMMARY | 2024-08-10 03:47 | XMS_ITS | Encounter Summary ---
Author Organization [facility] Address 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
--- OUTSIDE RECORDS SUMMARY | 2024-08-10 03:47 | XMS_ITS | Encounter Summary ---
Author Organization [facility] Address [address] [place] [address] Care Team Providers Care Full Time Staff Interpreter Name Role Phone Unavailable Primary Care Provider Unavailabl e Reason for Visit * Reason Comments Addiction problem Shot up meth for the first time. 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 Gender Identity Not on file Sexual Orientation Not on file documented as of this encounter Last Filed Vital Signs Vital Sign Reading Time Taken Comments Blood Pressure 95/53 03/18/2024 5:04 AM CDT Pulse 55 03/18/2024 5:04 AM CDT Temperature 36.6 ??C (97.8 ??F) 03/18/2024 5:04 AM CD T Respiratory Rate 18 03/18/2024 5:04 AM CDT Oxygen Saturation 97% 03/18/2024 5:04 AM CDT Inhaled Oxygen Concentration - - Weight 81.6 kg (180 lb) 03/18/2024 12:12 AM CDT Height 182.9 cm (6') 03/18/2024 12:12 AM CDT Body Mass Index 24.41 03/18/2024 12:12 AM CDT documented in this encounter Discharge Instructions * Discharge Instructions* Keyanna Stevens - 03/18/2024 10:02 AM CDT Phil Araya Salvatore Bello (1995) Phil was seen in [facility]'s Emergency Department on 03/18/24 by an Embosser Operator. Per the consulting provider, it has been determined that patient is safe for discharge to custodial/substance abuse facility at this time. Patient currently lacks evidence of intent, plan and means to do harm and appears to be at baseline functioning. Patient has been given the following recommendations provided below Follow up with your ADAPT care team Patient and/or Guardian/POA has been given an opportunity to ask any questions and denied any further concerns. Patient and/or Guardian/POA has verbalized understanding to return to ED if condition worsens. Patient and/or Guardian/POA has verbalized understanding and agreement to utilize these resources. Should Phil have any concerns for safety, Phil is agreeable to lidia a trusted family member or friend, current providers, [facility] at the number listed below, any of the crisis linesbelow, [phone], 911 or go to your nearest emergency department. REFERRALS Homelessness resources [facility] Helpline: [phone] Call for placement in a custodial Most shelters require you to call this number for referrals Places for People Intake, Outreach and Assessment [phone] ext [phone] Or walk in Sunday - Sunday, 8:30-11 a.m. and 1-3 p.m., at our [address] [facility] Building. [facility] Fdc Locations [facility]: [phone] [address] (at [facility]) [address] Hours: 6:00pm-8:00am [address] (at [place]) [address] Hours: 6:00pm-8:00am [address] (at [place]) [address] Hours: 6:00pm-8:00am [facility] [address] (at [place]) [address] Hours: 6:00pm-8:00am 24 HOURS BY REFERRAL ONLY [facility] Offered: Emergency Fdc, Food Pantry, Emergency Assistance [address] [place], [place] [phone] Call for referral 2-1-1 [address] [employer] [place] [address] [address] [address] Call for referral [phone] Other Shelters [place] [address] [place] [address] Housing for Women and Children Call 2-1-1 for referral COVID-19 please call [phone] [facility] [address] [place] [address] Housing custodial for single men Call 2-1-1 for custodial referral COVID-19 please call [phone] [facility]lene [facility] Jess [address] [place] [address] Family Fdc Call 2-1-1- for referral COVID-19 They will take new people but must go thru 2-1-1 [facility] Fdc [address] [facility] [place] [address] Housing for women (including ) and girls and boys 5 and under. Call for availability. No new admissions on . COVID-19 They will take women if they have room but you cannot have symptons. [facility] [address] [place] [address] [facility] [address] [place] [address] Emergency Fdc for Men COVID-19 They are on lock down. The residents that are there now are locked in Social Security Office (Open from 9 am-3 pm on Sunday, Sunday, , and Sunday. Open 9 am-12 pm on Sunday) Location: [address] [place] [address] Phone: Extended Stay Hotels [facility] - [phone]. Located at [address] [place] [address]. [facility]- [phone]. [address] [place] [address]. [facility] - [phone]. Located [address] [place] [address] Extended Stay [facility] Hot - [phone]. [address] [facility] -[phone]. Located at [address] [place] [address] [facility]- [phone]. Located at [address] [place] [address]. Community Agencies [facility]- [phone] Places for People- [phone] [facility] [phone] [facility] Intake Services - [phone] Chemical Dependency Treatment [facility] - [phone] [facility] - [phone] [facility] - [phone] [facility] - [phone] [place] [facility] - [phone] [facility] - [phone] [employer] - [phone] or [phone] [place] Alcoholics Anonymous - [phone] [employer] Narcotics Anonymous - [phone] [employer] [place] - [phone] Vocational Rehabilitation [facility] - [phone] and [phone] [facility] [phone] Anger Management [facility] - [phone] Financial/Legal Agencies Consumer Credit Counseling - [phone] Legal Services of [facility] - [phone] Social Security Disability - [phone] [employer] - [phone] SUICIDE PREVENTION AND CRISIS HOTLINES [facility] - Behavioral Health Intake & Access Center: [facility] Behavioral Health Intake Department is professionally staffed and offers free, confidential evaluations for anyone needing assistance with psychiatric and behavioral issues. Evaluations are available 24 hours a day, 7 days a week. National Suicide Prevention Hotline: 988 OR 4-275-237-TALK (9111) 12/02 hotline available to anyone in suicidal crisis or emotional distress. Calls will be routed to the nearest crisis center to you [facility] National Helpline - TTY: Disaster Distress Helpline - TTY: /Veterans Suicide Hotline: 0-962-141-TALK (3925) Press 1 [place] Hope-Line Network: 4-072-LUCXYJE (461-2266) 12/02 hotline that connects people who are depressed or suicidal, or those who are concerned about someone they love, automatically to a [facility] or [facility] certified crisis center. Crisis Text Line: Just send a text message to 604810 Live, trained crisis counselors available 12/02 via text message; You'll receive an automated text asking you what your crisis is and within minutes , a live trained crisis counselor will answer your text. They will help you out of a moment of crisis and work with you to create a plan to continue tofeel better. [facility] - 211 documented in this encounter Medications at Time [...] CDT 02/08/2024 documented as of this encounter ED Notes * Charles Brown RN - 03/18/2024 9:34 AM CDT Pt laying in bed. No concerns noted * Charles Brown RN - 03/18/2024 8:56 AM CDT Pt came out room stumbling while walking and urinated on floor in rogers in front of multiple pts' rooms. Pt asking for juices. Pt given juice per request. Pt back in room sitting on bed. * Laura Fernando - 03/18/2024 8:56 AM CDT Patient urinated in room and then dragged urine all over unit floors. This tech got a mop and cleaned up urine * Charles Brown RN - 03/18/2024 8:23 AM CDT Pt laying in bed. No concerns noted * Charles Brown RN - 03/18/2024 7:56 AM CDT Intake counselor at bedside talking to pt * Charles Brown RN - 03/18/2024 7:29 AM CDT Pt laying in bed. No concerns noted * Charles Brown RN - 03/18/2024 6:29 AM CDT Pt laying in bed. Pt appears to be sleeping. No concerns noted * Louis Watters RN - 03/18/2024 1:55 AM CDT Pt switched into green scrubs by this RN. Pt was cooperative with change. Skin was intact. No contraband noted in skin fold or mouth. Pt belongings placed in bag and secured with security. * Sarah Arriola RN - 03/18/2024 12:10 AM CDT EMS stated that patient shot up methamphetamine for the first time today. Patient has been living in sober living. Hx of HIV. Concerned it may be laced with something. Patient answering all questionsappropriately. Patient restless during triage. Patient states that he is suicidal and wants to .States will use a knife or gun to kill himself. Patient is in cycles of drowsiness and restlessness. Patient able to answer questions appropriately. * Martha Pino MD - 03/18/2024 12:05 AM CDT HISTORY OF PRESENT ILLNESS Physician at bedside: 01:33 Phil Chase Jr. is a 28 y.o. male, with past medical history of bipolar disorder, depression, generalized anxiety disorder, and HIV, who presents to the emergency department with suicidal ideation which began earlier tonight after using methamphetamine today. The patient states he injectedmeth for the first time today. He denies any pain. The patient states he lives at a sober living house. PCP: No PCP listed on file External Notes Reviewed: Admission and discharge from 02/23/24. Independent Historian: EMS. Social Determinants of Health: Tobacco use PAST MEDICAL HISTORY REVIEWED MEDICAL: Patient has a past medical history of Bipolar disorder, unspecified, Depression, Drug addiction, RENEE (generalized anxiety disorder), and History of HIV infection. SURGICAL: Patient has a past surgical history that includes pt denies relevant surgical history. ALLERGIES Patient has no known allergies. PHYSICAL EXAM INITIAL VS BP: 108/80 (03/18/24 0012), Heart Rate: 98 bpm (03/18/2411), Resp: 20 (03/18/2411), Pulse: 98(03/18/24 001), Temp: 97.2 ??F (36.2 ??C) (03/18/24 001), Temp src: Oral (03/18/24 0504), SpO2: 97 % (03/18/2411), Height: 6' (182.9 cm) (03/18/24 001), Weight: 81.6 kg (180 lb) (03/18/24 001), BMI (Calculated): 24.39 (03/18/2411) No LMP for male patient. Physical Exam Vitals and nursing note reviewed. Constitutional: General: He is not in acute distress. Appearance: Normal appearance. He is not ill-appearing. Comments: Jerking movement. HENT: Head: Normocephalic and atraumatic. Right Ear: External ear normal. Left Ear: External ear normal. Nose: Nose normal. Mouth/Throat: Mouth: Mucous membranes are moist. Eyes: General: Right eye: No discharge. Left eye: No discharge. Pupils: Pupils are equal, round, and reactive to light. Cardiovascular: Rate and Rhythm: Normal rate and regular rhythm. Pulses: Normal pulses. Heart sounds: Normal heart sounds. Pulmonary: Effort: Pulmonary effort is normal. No respiratory distress. Breath sounds: Normal breath sounds. Abdominal: General: Abdomen is flat. There is no distension. Palpations: Abdomen is soft. Musculoskeletal: General: No swelling or signs of injury. Normal range of motion. Cervical back: Normal range of motion and neck supple. No tenderness. Skin: General: Skin is warm and dry. Capillary Refill: Capillary refill takes less than 2 seconds. Findings: No rash. Neurological: General: No focal deficit present. Mental Status: He is alert and oriented to person, place, and time. Psychiatric: Mood and Affect: Mood normal. Behavior: Behavior normal. Thought Content: Thought content includes suicidal ideation. DIAGNOSTICS LAB: COMPREHENSIVE METABOLIC PANEL - Abnormal Result Value SODIUM 139 POTASSIUM 3.8 CHLORIDE 106 CO2 20 (*) CALCIUM 8.7 BUN 22 (*) CREATININE 1.16 GLUCOSE 100 (*) TOTAL PROTEIN 7.7 ALBUMIN 4.1 BILIRUBIN TOTAL 0.6 ALKALINE PHOSPHATASE 79 AST 64 (*) ALT 27 GFR >60 ANION GAP 13 CBC WITH DIFFERENTIAL - Abnormal WBC 5.6 RBC 5.03 HEMOGLOBIN 13.5 (*) HEMATOCRIT 41.6 MCV 82.7 MCH 26.8 (*) MCHC 32.4 (*) RDW 15.3 (*) PLATELETS 268 MPV 7.7 (*) NEUTROPHILS 60 LYMPHOCYTES 29 MONOCYTES 8 EOSINOPHILS 3 BASOPHILS 1 NEUTROPHIL ABSOLUTE 3.30 LYMPHOCYTE ABSOLUTE 1.60 MONOCYTE ABSOLUTE 0.50 EOSINOPHIL ABSOLUTE 0.20 BASOPHILS ABSOLUTE 0.00 TSH - Normal TSH 0.60 ETHANOL LEVEL ETHANOL <10.10 ETHANOL % <0.01 RADIOLOGY: No orders to display EKG: PROCEDURES Procedures MEDICAL DECISION MAKING AND PLAN OF CARE ED Course as of 03/23/24 0904 SunMar 18, 2024 0133 Patient seen by ED physician at bedside. History obtained and physical exam performed. Updatedthe patient on the expected course of treatment. They are agreeable. [TG] ED Course User Index [TG] Jules Travis Scribe Medical Decision Making Summary: PT is a 28 yo M here with reaction to methamphetamine and SI. PT did meth earlier today. Having some jerking movements. Denies pain. C/o SI. Unclear plan. VSS. Will obtain labs, give ativan,c/s to . Observe. PT jerking movements resolved with ativan. Signed out to oncoming EM MD pendingBH evaluation and disposition. Differential diagnosis includes, but is not limited to, methamphetamine intoxication vs suicidal ideation vs MDD vs polysubstance abuse. By virtue of history and physical, some of these diagnoses canbe excluded. Non-ED notes reviewed: Admission and discharge from 02/23/24. Additional information obtained from independent historian, EMS. The following social determinants of health potentially complicated the patient's course and were considered in my plan of care: Tobacco use Amount and/or Complexity of Data Reviewed Independent Historian: EMS External Data Reviewed: notes. Labs: ordered. Risk Prescription drug management. Clinical Scoring & Consults Medications Administered During the ED Stay from 03/18/2024 0006 to 03/23/2024 0904 Date/Time Order Dose Route Action 03/18/2024 0200 CDT LORazepam (ATIVAN) tablet 1 mg 1 mg Oral Given Discharge Medication List as of 03/18/2024 10:09 AM CONTINUE these medications which have NOT CHANGED Details ARIPiprazole (ABILIFY) 15 mg tablet Starting 02/09/24, Take 1 Tablet (15 mg) by mouth daily., Disp-30 Tablet, R-0 omijuyqhujy-hrgfikhgtvqsl-mibiumjod alafenam (Biktarvy) 50-200-25 mg Tablet Take 1 [...] Anxiety., Disp-60 Tablet, R-0 LAST VS BP: 95/53 (03/18/24503), Heart Rate: (!) 55 bpm (03/18/24503), Resp: 18 (03/18/24503), Pulse:(!) 55 (03/18/24503), Temp: 97.8 ??F (36.6 ??C) (03/18/24503), Temp src: Oral (03/18/24503), SpO2: 97 % (03/18/24503) CLINICAL IMPRESSION Final diagnoses: [F31.9] Bipolar I disorder (Primary) DISPOSITION, EDUCATION AND MEDICATION RECONCILIATION Medications reconciled. See after visit summary for patient education on discharged patients. ED Disposition ED Disposition Discharge Condition Stable User Vin Christian MD Date/Time SunMar 18, 2024 10:02 AM Comment -- ATTESTATION STATEMENTS This note is prepared by Jules Travis acting as a scribe for Dr. Pino. The scribe's documentation has been prepared under my direction and personally reviewed by me in its entirety. I confirm that the note above accurately reflects all work, treatment, procedures, and medical decision making performed by me. Despite this, dictation software may have been utilized, andtherefore errors or substitutions may occur * Vin Christian MD - 03/18/2024 12:05 AM CDT Continuation of Care Addendum Vin Christian DO assumed care of patient Phil Chase . on 03/18/2024 from the care of previous provider pending evaluation. See previous physicians note for full H/P results and plan. I agree with the previously mentioned care plan. Progress Notes: 0656: Patient care taken over from Dr. Pino at shift change. 1004: Spoke with psychiatric accreditation specialist, who evaluated the patient in the ED. Psychiatrist recommends discharge for outpatient follow up. Patient will be provided with appropriate resources. MDM: Patient signed out pending [facility] evaluation. S recommended discharge. He was given return precautions, outpatient resources, his outpatient providers were contacted by [facility], and he was dischargedhome. Vitals: 03/18/24 0504 BP: 95/53 Pulse: (!) 55 Resp: 18 Temp: 97.8 ??F (36.6 ??C) SpO2: 97% Labs Reviewed COMPREHENSIVE METABOLIC PANEL - Abnormal; Notable for the following components: Result Value CO2 20 (*) BUN 22 (*) GLUCOSE 100 (*) AST 64 (*) All other components within normal limits CBC WITH DIFFERENTIAL - Abnormal; Notable for the following components: HEMOGLOBIN 13.5 (*) MCH 26.8 (*) MCHC 32.4 (*) RDW 15.3 (*) MPV 7.7 (*) All other components within normal limits TSH - Normal ETHANOL LEVEL No orders to display No orders to display Dispo: ED Disposition ED Disposition Discharge Condition Stable Comment -- Final diagnoses: [F31.9] Bipolar I disorder (Primary) This note is prepared by An Chatman acting as a scribe for Vin Christian DO. The scribe's documentation has been prepared under my direction and personally reviewed by me in its entirety. I confirm that the note above accurately reflects all work, treatment, procedures, and medical decision making performed by me. Despite this, dictation software may have been utilized, andtherefore errors or substitutions may occur. documented in this encounter Miscellaneous Notes * Intake Assessment - Keyanna Stevens - 03/18/2024 8:44 AM CDT IDENTIFYING INFORMATION: Phil Chase is a 28 y.o. male who presents for Behavioral Health Assessment and is located in ED (03/18/2024 8:00 AM) at [facility]. Is eval being completed virtually: No (03/18/24 0800). Patient presents Alone (03/18/2024 8:00 AM). CHIEF COMPLAINT: I've been suicidal (03/18/2024 8:05 AM) Activating Events (Recent): Recent loss(es) or other significant negative event(s) (legal, financial, relationship, etc.), Pending incarceration or homelessness; homeless NARRATIVE SUMMARY: Precipitating event(s) within past 24-72 hours leading to presentation to the hospital: Pt is a 28 yr old male presenting to the ED via EMS due to methamphetamine use and SI. Pt was A&Ox3 while speaking with this marine underwriter. Pt would mumble and flail his body around while answering questions. Pt ended up falling asleep and stopped participating in the evaluation process after only answering a handful of questions. Pt reports he is suicidal, but denied having a plan/intent to harm himself. Pt reported to EMS he was going to try to overdose on meth. Pt reported to his RN last night that he would use a knife or gun to kill himself. Pt denied having a plan to kill himself while speaking with the attending MD. Per chart, pt has had multiple suicide attempts via hanging, overdosing,throwing himself down stairs and attempting to walk into traffic. Pt is a poor historian and often changes his answers in regards to past suicide attempts and to SI related questions ED visit to ED visit. Per chart, pt was evaluated at [facility] on 03/02 and reported he tried to kill himself by taking medications. Pt was seen at [facility] on 03/03 and he reported he tried throwing himself down the stairs to kill himself. Per chart, pt has a hx of self harming behaviors. Pt denied HI. Pt has been seen in various ED's 14 times since December 2023. Pt has been admitted for IPBH 5 times in the last 2 months. Pt has past diagnoses of MDD, RENEE, Methamphetamine abuse, Bipolar Disorder, Borderline Personality Disorder. Pt was last admitted for IPBH from 02/22-02/27/[address] [facility]. Pt reports seeing Dr. Locke for psychiatry. Pt reports he has not had an appointment for a long time . Pt claims he is still taking his psych medications. Pt is often times noncompliant with outpatient care following his discharge from IPBH facilities. Pt reports having visual hallucinations, but was unable to tell this marine underwriter what he was seeing. Pt denied auditory hallucinations. Pt often fabricates different stressors when going to the ED. Pt claimed his father of an overdose on while at [facility]. Pt then reported on 03/03 that his father was looking for him so he ran away from his sober living facility. Pt apparently relapsed on methamphetamines yesterday. Pt reports he shot up for the first time yesterday. Pt reported to EMS that he had been sober for 98 days. Per chart, pt has tested positive for amphetamines multiple times since December 2023. Pt has been in multiple substance abuse programs over the last several months. Pt reports he was staying in a sober living facility. Pt would not answer this marine underwriter in regards to when he left the program. Pt reports he is living nowhere now. Per casenet, pt is on probation at this time due to Stealing/Larceny/Theft. Pt did not appear to be experiencing AH, natividad or psychosis while in the ED. Collateral Information Reports: Isadora De La Rosa (ADAPT control board operator) [phone] Rod Montano (ADAPT supervisor coremaker) [phone] This marine underwriter called the pt's control board operator on multiple occasions with no answer. Isadora's supervisor coremaker call this marine underwriter back to speak about the pt. Rod reports they set him up at [facility] sober living facility about 2 weeks. Rod reports they have been unable to get in contact with the pt since then. Max reports he will try to have someone come out to talk to him while the pt is still in the ED. This marine underwriter consulted Kristan HOYT, it was determined the pt needs to follow up with his ADAPTcaseworker for continued outpatient care. Dr. Christian made aware of disposition and is agreeable. Pt will receive homeless custodial resources in his area. Pt denies having a cell phone he can use to call his ADAPT control board operator. Pt was given his control board operator's phone number to contact them. Plan of care discussed with patient, PHI refused, all questions addressed, and resources reviewed PLAN OF CARE DIRECTED BY PROVIDER: Phil Chase Jr.'s case has been staffed with the [facility] ( ) and it has been determined that patient is does not require admission to a Behavioral Health facility. Admission to [facility] is not indicated due to absence of the following: Imminent Danger to Self, Imminent Danger to Others, and A modifiable risk factor that can be addressed by acute admission Suicide Risk and Interventions: High (if no rating; see Risk Assessment Flowsheet for additional information) Provider rationale for discharge if patient scored high risk on CSSR-s: safety plan updated If Inpatient - PARK Signed: No (03/18/24813) Codeword: What code word will you use for security?: n/a (03/18/24813) LEGAL CUSTODY/GUARDIANSHIP/DURABLE POWER OF MOLDER WAX BALL: Legal Custody: Self (03/18/24799) SOURCES OF INFORMATION: Information obtained from: Patient;Past medical record;a p manager (03/18/24799) Developer Advisor(s) : unable to assess (03/18/24813) Release of Info Signed: PARK Signed: No (03/18/24813) Family/Caregiver Form: Pt unaccompanied at time of assessment Affidavits Present: No PSYCHIATRIC TREATMENT HX: Psychiatric Treatment Previous psychiatric diagnosis: Yes (03/18/24800) Describe previous diagnosis: MDD, RENEE, Methamphetamine abuse, Bipolar Disorder, Borderline Personality Disorder (03/18/24800) Inpatient psychiatric hospitalization: Yes (03/18/24800) When: 02/22 to 02/27/2024 (03/18/24800) Where: [facility] (03/18/24800) Currently receiving treatment: Yes (03/18/24800) Current Psychiatrist : Dr. Locke (03/18/24800) Current Therapist: Peng De La Rosa [phone] or [phone] (03/18/24800) Compliant with treatment: No (03/18/24800) Primary Care Provider: No primary care provider on file. CHECKLIST FOR PLACEMENT: Self (03/18/2024 8:00 AM) History of Violence/Aggressiveness: (unable to assess) (03/18/24811) Have You Ever Been Accused of Forcing Sexual Activity on Someone?: (unable to assess) (03/18/24811) Are You a Registered Sex Offender?: (unable to assess) (03/18/24811) Is Patient on Hospice: no. Suicide Risk and Interventions: Suicide Risk and Interventions: High (03/18/24809) *if no score, please see CSSR-S for additional information Broset Violence Score: Total: 1 (03/18/24811) MENTAL STATUS/THOUGHT ASSESSMENT: Sensorium: Drowsy (03/18/2024 8:13 AM) Orientation: oriented to; person; place; situation (03/18/2024 8:13 AM) Appearance: Disheveled (03/18/2024 8:13 AM) Behavior: Fidgeting; Unwilling to participate; Guarded (03/18/2024 8:13 AM) Speech: Incoherent (03/18/2024 8:13 AM) Thought Processes: Circumstantial (03/18/2024 8:13 AM) Thought Content: Bizarreness (03/18/2024 8:13 AM), Mood: Elevated (03/18/2024 8:13 AM) Affect: Labile (03/18/2024 8:13 AM) Insight: Poor (03/18/2024 8:13 AM), Judgement: Poor (03/18/2024 8:13 AM), RISK ASSESSMENT CSSR-S Suicidal Ideation: Suicidal Ideation (Most Severe in Past Month) 1. Have you wished you were or wished you could go to sleep and not wake up?: Yes (03/18/24809) Wish to be (Description): pt reports feeling suicidal (03/18/24809) 2. Have you actually had any thoughts of killing yourself?: Yes (03/18/24809) Thoughts of killing yourself (Description): It's really bad (03/18/24809) 3. Have you been thinking about how you might kill yourself? : No (03/18/24809) 4. Have you had these thoughts and had some intention of acting on them?: No (03/18/24809) 5. Have you started to work out or worked out the details of how to kill yourself? Do you intend tocarry out this plan?: No (03/18/24809) Suicide Intent with Specific Plan (Description): denied having a plan (03/18/24809) 6. Have you ever done anything, started to do anything, or prepared to do anything to end your life?: Yes (03/18/24809) Describe what you may have done, started to do or preparfed to do to end your life: per chart, pt has attempted to overdose multiple times, hang himself, throwing himself down stairs earlier this month (03/18/24809) 6b. Was this within the past 3 months?: Yes (03/18/24809) Suicide Risk and Interventions: High (03/18/24809) Suicidal and Self-Injurious Behavior: Suicidal and Self-Injurious Behavior Actual suicide attempt: Lifetime (03/18/24809) Self-injurious behavior without suicidal intent: Lifetime (03/18/24809) Violence/Risk to Others History of Violence/Aggressiveness: (unable to assess) (03/18/24811) Homicidal Ideation: Violence-Risk Towards Others In the past month have you had thoughts of harming another person?: No (03/18/24811) Broset Violence Checklist (age 12 and older ONLY) Confusion - Appears obviously confused and disoriented. May be unaware of person, place, time.: Yes(03/18/24811) Irritability - Easily annoyed or angered. Unable to tolerate the presence of others.: No (03/18/24811) Boisterous - Behavior is overtly loud or noisy. For example slams doors, shouts out when talking etc.: No (03/18/24811) Verbal Threat - A verbal outburst which is more than just a raised voice and where there is a definite intent to intimidate or threaten another person. For example, verbal attacks, abuse, name-calling, verbally neutral comments uttered in a snarling aggressive manner.: No (03/18/24811) Physical Attacks - Where there is a definite intent to physically threaten another person. For example, the taking of an aggressive stance, the grabbing of another person???s clothing, the raising ofan arm or leg, making a fist or modeling a head-butt directed at another. : No (03/18/24811) Attacks on Objects - An attack directed at an object and not an individual. For example, the indiscriminant throwing of an object, banging or smashing windows, kicking, banging or head butting an object or the smashing of furniture. : No (03/18/24811) Broset Violence Score: Total: 1 (03/18/24811) Risks Factors Clinical Status (Recent): Substance abuse or dependence, Highly impulsive behavior Suicidal, Self-Injurious, or Aggressive Behavior Describe any suicidal, self- injurious, or aggressive behavior (include dates): per chart, pt has had multiple suicide attempts. pt is a poor historianand often changes his answers in regards to past suicide attempts ED visit to ED visit Previous psychiatric diagnosis: Yes Substances: Methamphetamine Other Risk Factors: substance use Treatment History: Previous psychiatric diagnoses and treatments, Non-compliant with treatment Access to firearms: unable to verify Family history of mental illness/substance use: Yes; Describe in detail: Both parents and maternal grandparents undiagnosed mental illness. 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 Abuse & Trauma Abuse/Trauma Abuse/Trauma: Unable to obtain (03/18/24811) Please describe unable to obtain or declined: unable to assess (03/18/24811) PSYCHOLOGICAL SYMPTOMS: Sleeping/Eating Patterns Sleeping Patterns: (unable to assess) (03/18/24807) Hours of Sleep: unable to assess (03/18/24807) Eating Patterns: (unable to assess) (03/18/24807) Depressive Symptoms Depressive Symptoms Noted: (unable to assess) (03/18/24807) Manic Symptoms Manic Symptoms Noted: (unable to assess) (03/18/24807) Psychotic Symptoms Psychotic Symptoms Noted: Yes (03/18/24807) Types: Hallucinations (03/18/24807) Hallucination Types: Visual (03/18/24807) Onset of Current Symptoms: yesterday (03/18/24807) Anxiety Symptoms Anxiety Symptoms Noted: (unable to assess) (03/18/24807) SUBSTANCE ABUSE SCREENING: Substances Methamphetamine Route: injection (03/18/24812) Methamphetamine Frequency: unknown (03/18/24812) Last Use of Methamphetamine: yesterday (03/18/24812) FAMILY HISTORY OF MENTAL ILLNESS: Family History of Mental Illness/Substance Use Family history of mental illness/substance use: Yes (03/18/24811) Describe in detail: Both parents and maternal grandparents undiagnosed mental illness. (03/18/24811) Family history of a completed suicide: No (03/18/24811) If discharged - Patient has been given appropriate follow up recommendations and has verbalized understanding and agreement to utilize these resources. Patient and/or Guardian/POA has verbalized understanding and agrees to utilize these resources. Patient and/or Guardian/POA has been given an opportunity to ask any questions and denied any further concerns. Patient and/or Guardian/POA has verbalized understanding to return to ED if condition worsens. 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.ICD-10-CM Additional Diagnosis(es): ALEXEY OP MS PSY DSM-V With SmartLists: Borderline Personality Disorder 301.83; F60.3.ICD-10-CM Acute Medical: see medical chart Psychosocial: Psych stressors: drug and alcohol and housing Suicide Hotline Resources Provided: No: patient is being admitted to [facility], will provide at d/c Has safety plan been completed/reviewed for discharged patients rating moderate or high risk on CSSR-s: SAFETY PLAN COMPLETED/REVIEWED SUCCESSFULLY ~END~ * Intake Assessment - Inez Corona - 03/18/2024 2:50 AM CDT This Underground Drill Operator attempted to assess pt virtually. Initially, pt was observed to be on his bed, flinging his body and flailing his arms, not responding verbally to prompts. He began moaning and Intake logged off in order to notify his RN of his behavior. Intake spoke with pt's RN and attempted to speak with him again, however he was asleep and unable to wake despite several verbal promptsfrom this marine underwriter. Pt RN notified and stated [facility] Intake consulted Justin Gonzalez, [facility] who recommended delaying pt's Intake evaluation until he was alert and able to participate. No affidavits present in ED. Intake informed VICTOR MANUEL Stanley and Dr. Pino of delayed Intake assessment recommendation from [facility]I. Intake requested that [facility] be contacted when pt is alert and able to participate in his evaluation. documented in this encounter Plan of Treatment Not on file documented as of this encounter Procedures Procedure Name Priority Date/Time Associated Diagnosis Comments CBC WITH DIFFERENTIAL Stat 03/18/2024 2:45 AM CDT TSH Stat 03/18/2024 2:45 AM CDT ETHANOL LEVEL Stat 03/18/2024 2:45 AM CDT COMPREHENSIVE METABOLIC PANEL Stat 03/18/2024 2:45 AM CDT documented in this encounter Results * (ABNORMAL) CBC WITH DIFFERENTIAL (03/18/2024 2:45 AM CDT) WBC 5.6 4.5 - 10.5 K/uL 03/18/2024 2:59 AM CDT [facility] RBC 5.03 4.50 - 5.40 M/uL 03/18/2024 2:59 AM CDT [facility] HEMOGLOBIN 13.5(L) 13.6 - 16.5 g/dL 03/18/2024 2:59 AM CDT [facility] HEMATOCRIT 41.6 40.0 - 48.0 % 03/18/2024 2:59 AM CDT [facility] MCV 82.7 82.0 - 99.0 fL 03/18/2024 2:59 AM CDT [facility] MCH 26.8(L) 27.8 - 34.5 pg 03/18/2024 2:59 AM CDT [facility] MCHC 32.4(L) 32.5 - 35.5 g/dL 03/18/2024 2:59 AM CDT [facility] RDW 15.3(H) 11.5 - 14.5 % 03/18/2024 2:59 AM CDT [facility] PLATELETS 268 160 - 420 K/uL 03/18/2024 2:59 AM CDT [facility] MPV 7.7(L) 8.7 - 12.7 fL 03/18/2024 2:59 AM CDT [facility] NEUTROPHILS 60 % 03/18/2024 2:59 AM CDT [facility] LYMPHOCYTES 29 % 03/18/2024 2:59 AM CDT [facility] MONOCYTES 8 % 03/18/2024 2:59 AM CDT [facility] EOSINOPHILS 3 % 03/18/2024 2:59 AM CDT [facility] BASOPHILS 1 % 03/18/2024 2:59 AM CDT [facility] NEUTROPHIL ABSOLUTE 3.30 1.90 - 7.00 K/uL 03/18/2024 2:59 AM CDT [facility] LYMPHOCYTE ABSOLUTE 1.60 0.70 - 4.50 K/uL 03/18/2024 2:59 AM CDT [facility] MONOCYTE ABSOLUTE 0.50 0.10 - 1.30 K/uL 03/18/2024 2:59 AM CDT [facility] EOSINOPHIL ABSOLUTE 0.20 0.00 - 0.70 K/uL 03/18/2024 2:59 AM CDT [facility] BASOPHILS ABSOLUTE 0.00 0.00 - 0.20 K/uL 03/18/2024 2:59 AM CDT [facility] Blood Venipuncture / Unknown 03/18/2024 2:45 AM CDT 03/18/2024 2:56 AM CDT us Martha Pino MD HEMATOLOGY ORDERABLES Final Resu lt [facility] [employer] [facility] CLIA# [id number] [place] [address] * (ABNORMAL) COMPREHENSIVE METABOLIC PANEL (03/18/2024 2:45 AM CDT) [facility] SODIUM 139 136 - 145 mmol/L 03/18/2024 3:39 AM CDT [facility] POTASSIUM 3.8 3.4 - 5.1 mmol/L 03/18/2024 3:39 AM CDT [facility] CHLORIDE 106 98 - 107 mmol/L 03/18/2024 3:39 AM T [facility] CO2 20(L) 22 - 29 mmol/L 03/18/2024 3:39 AM T [facility] CALCIUM 8.7 8.6 - 10.4 mg/dL 03/18/2024 3:39 AM T [facility] BUN 22(H) 6 - 20 mg/dL 03/18/2024 3:39 AM CDT [facility] CREATININE 1.16 0.67 - 1.17 mg/dL 03/18/2024 3:39 AM CDT [facility] GLUCOSE 100(H) 74 - 99 mg/dL 03/18/2024 3:39 AM T [facility] TOTAL PROTEIN 7.7 6.3 - 8.7 g/dL 03/18/2024 3:39 AM T [facility] ALBUMIN 4.1 3.5 - 5.2 g/dL 03/18/2024 3:39 AM CDT [facility] BILIRUBIN TOTAL 0.6 0.3 - 1.2 mg/dL 03/18/2024 3:39 AM CDT [facility] ALKALINE PHOSPHATASE 79 40 - 150 U/L 03/18/2024 3:39 AM CDT [facility] AST 64(H) 0 - 41 U/L 03/18/2024 3:39 AM CDT [facility] ALT 27 0 - 41 U/L 03/18/2024 3:39 AM CDT [facility] GFR >60 >=60 mL/min/1.7 3 sq meter 03/18/2024 3:39 AM CDT [facility] Comment:eGFR calculated with 2020 CKD-EPI equation. Vegetarian diet, extremely high or low muscle mass, and may affect results. Cystatin C with Glomerular Filtration Rate is a suitable alternative for these patients. ANION GAP 13 8 - 16 mmol/L 03/18/2024 3:39 AM CDT [facility] Blood Venipuncture / Unknown 03/18/2024 2:45 AM CDT 03/18/2024 2:50 AM CDT Martha Pino MD CHEMISTRY ORDERABLES Final Resul t Performing Organization Address City/[facility]/ZIP Co de Phone Number [facility] [id number] [place] [address] * ETHANOL LEVEL (03/18/2024 2:45 AM CDT) ETHANOL <10.10 No Ref Range Estab mg/dL 03/18/2024 3:39 AM CDT [facility] ETHANOL % <0.01 %w/v 03/18/2024 3:39 AM CDT [facility] Blood Venipuncture / Unknown 03/18/2024 2:45 AM CDT 03/18/2024 2:50 AM CDT Martha Pino MD CHEMISTRY ORDERABLES Final Resul t [facility] CLIA# [id number] [place] [address] * TSH (03/18/2024 2:45 AM CDT) TSH 0.60 0.27 - 4.20 uIU/mL 03/18/2024 3:39 AM CDT [facility] Blood Venipuncture / Unknown 03/18/2024 2:45 AM CDT 03/18/2024 2:50 AM CDT us Martha Pino MD CHEMISTRY ORDERABLES Final Resul t [facility] CLIA# [id number] [place] [address] documented in this encounter Visit Diagnoses Diagnosis Bipolar I disorder- Primary Bipolar I disorder, most recent episode (or current) unspecified documented in this encounter Administered Medications Inactive Administered Medications - up to 3 most recent administrations Medication Order MAR Action Action Date Dose Rate Site LORazepam (ATIVAN) tablet 1 mg 1 mg, Oral, ONE TIME ONLY, 1 dose, On Sun03/18/24 at 0130, Routine Given 03/18/2024 2:00 AM CDT 1 mg documented in this encounter Active and Recently Administered Medications Times are shown in CDT. Scheduled Medication Order 03/16/2024 03/17/2024 03/18/2024 LORazepam (ATIVAN) tablet 1 mg (COMPLETED) 1 mg, Oral, ONE TIME ONLY, 1 dose, On Sun03/18/24 at 0130, Routine 0200 (Given - Provid er: Jaden Souza RN) documented in this encounter
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
--- OUTSIDE RECORDS SUMMARY | 2024-08-10 03:47 | XMS_ITS | Encounter Summary ---
Author Organization [facility] Address 

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
--- OUTSIDE RECORDS SUMMARY | 2024-08-10 03:47 | XMS_ITS | Encounter Summary ---
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 Behavioral Health Provisional Diagnoses: Primary Diagnosis: ALEXEY OP MS BH PSY DSM-V With SmartLists: Bipolar Disorder, Current Episode Depressed, Severe, without Psychotic Features 296.53, F31.4.ICD-10-CM Additional Diagnosis(es): ALEXEY OP MS BH PSY DSM-V With SmartLists: Other Stimulant Dependence, Uncomplicated 304.40, F15.20.ICD-10-CM Acute Medical: Please see patient's medical chart. Psychosocial: Psych stressors: family, health, and drug and alcohol Suicide Hotline Resources Provided: not applicable Has safety plan been completed/reviewed for discharged patients rating moderate or high risk on CSSR-s: PATIENT BEING ADMITTED; TO BE COMPLETED BY INPATIENT STAFF ~END~ External Community Referrals ED Enhancement 12/02 Referral Line: [phone] [facility] Opioid Project: [phone] documented in this encounter Plan of Treatment Not on file documented as of this encounter Visit Diagnoses Diagnosis Severe bipolar I disorder with depression- Primary Bipolar I disorder, most recent episode (or current) depressed, severe, without mention of psychotic behavior documented in this encounter
--- OUTSIDE RECORDS SUMMARY | 2024-08-10 03:48 | XMS_ITS | Encounter Summary ---
Author Organization [facility] Address [address] [place] [address] Care Team Providers Care Supervisor [employer] Name Role Phone Unavailable Primary Care Provider Unavailabl e Reason for Visit * Reason Comments Suicidal 26 yom to the ED via EMS with c/o SI with a plan to OD on prescription medications. Pt reports increased stressors including partner being HIV positive. Losing his job, and homelessness. Pt reports friends took prescription medication bottles from him so he does not have access. Denies HI. * Auth/Cert (Routine) Specialty Diagnoses / Procedures Referred By Ara cazares Referred To Contact [facility] [place] [facility] Adult [place] [address] [place] [address] Phone: tel: fax: Referral ID Status Reason Start Date Expiration Date Visits Re quested Visits Authorized [id number] 1 1 Encounter Details Date Type Department Care Team (Latest Contact Info) Description 06/26/2022 6:25 PM DEVELOPMENT TEAM LEAD - 06/30/2022 4:30 PM DEVELOPMENT TEAM LEAD Hospital Encounter [facility] Adult [place] [address] [place] [address] Hood Auguste MD [address] [facility] [place] [address] Maris Daly MD [address] [place] [address] Avtar Ballard MD [address] [place] [address] Bipolar disorder, current episode mixed, moderate Discharge Disposition: Home or Self Care Social History Tobacco Use Types Packs/Day Years Used Date Smoking Tobacco: Never Smokeless Tobacco: Never Alcohol Use Standard Drinks/Week Comments Never 0 (1 standard drink = 0.6 oz pur e alcohol) Sex and Gender Information Value Date Recorded Sex Assigned at Not on file Legal Sex Male 9:34 AM DEVELOPMENT TEAM LEAD Gender Identity Not on file Sexual Orientation Not on file COVID-19 Exposure Response Date Recorded In the last 10 days, have yo u been in contact with someone who was confirmed or suspected to have Coronavirus/COVID-19? No / Unsure 06/26/2022 6:32 PM DEVELOPMENT TEAM LEAD documented as of this encounter Last Filed Vital Signs Vital Sign Reading Time Taken Comments Blood Pressure 147/88 06/30/2022 9:00 AM DEVELOPMENT TEAM LEAD Pulse 99 06/30/2022 9:00 AM DEVELOPMENT TEAM LEAD Temperature 35.9 ??C (96.6 ??F) 06/30/2022 9:00 AM CS T Respiratory Rate 18 06/30/2022 9:00 AM DEVELOPMENT TEAM LEAD Oxygen Saturation 99% 06/30/2022 9:00 AM DEVELOPMENT TEAM LEAD Inhaled Oxygen Concentration - - Weight 69.9 kg (154 lb) 06/27/2022 4:16 AM DEVELOPMENT TEAM LEAD Height 182.9 cm (6') 06/27/2022 4:16 AM DEVELOPMENT TEAM LEAD Body Mass Index 20.89 06/27/2022 4:16 AM DEVELOPMENT TEAM LEAD documented in this encounter Discharge Summaries * Maris Daly MD - 06/30/2022 8:35 AM CST Discharge Summary: ADMIT: 06/26/2022 DISCHARGE: 06/30/2022 Assessment: For specifics prior to admission please refer to admission History & Physical, and Medical consultation. Reason For Hospitalization: Mood disturbance Discharge DX: Bipolar disorder, current episode mixed, moderate Principal Problem: Bipolar disorder, current episode mixed, moderate Active Problems: HIV infection Major depressive disorder, recurrent episode, moderate RENEE (generalized anxiety disorder) Unilateral inguinal hernia without obstruction or gangrene Labs: Lab Results Component Value Date WBC 2.2 (L) 08/03/2019 HGB 11.1 (L) 08/03/2019 HCT 35.3 (L) 08/03/2019 PLT 300 08/03/2019 MCV 82.7 08/03/2019 Lab Results Component Value Date NA 139 09/02/2019 K 4.2 09/02/2019 CL 102 09/02/2019 CO2 26 09/02/2019 CA 9.5 09/02/2019 BUN 8 09/02/2019 CREAT 0.96 09/02/2019 GLUCOSE 87 09/02/2019 TOTALPROTEIN 9.6 (H) 09/02/2019 ALBUMIN 4.2 09/02/2019 BILITOTAL 0.3 09/02/2019 ALKPHOS 78 09/02/2019 AST 25 09/02/2019 ALT 19 09/02/2019 ANIONGAP 11 09/02/2019 Lab Results Component Value Date/Time CHOLTOT 119 09/02/2019 04:45 PM HDL 32 (L) 09/02/2019 04:45 PM LDLCALC 72 09/02/2019 04:45 PM TRIGLYCERIDE 74 09/02/2019 04:45 PM Lab Results Component Value Date/Time HGBA1C 5.2 07/31/2019 11:16 AM UDS: No results found for: ETHANOL, ETOHUR, ALCOHOLLEG Hospital course: Patient was admitted. He was treated with individual psychotherapy, group therapy, and inpatient milieu. He was provided with medication education and psychoeducation. He was receptive to therapy with motivational engagement and CBT techniques. His medical care was supervised by medical Hospitalist. He remained medically stable during this admission. Patient showed a good response with treatment offered. The crisis and symptoms leading to this admission appeared to be adequately resolved. He requested discharge on 06/30/22. Risk assessment was completed. Imminent or foreseeable risk was deemed low. He showed intact reality testing and positive outlook. He identified multiple protective factors and denied any SI. In summary no grounds could be discerned for continued IPT level of care on involuntary basis. He was considered safe and stable totransition to a lower level of care. Patient was placed on Remeron and Abilify combination. He was provided with education regarding medication effects/ side effects-potential risks/benefits to increase knowledge and understanding to help facilitate compliance following discharge. He maintained informed consent to medication offered during the admission and assured adherence after discharge. He tolerated the medication well with adequate response was noted. Patient was able to contract to safety and could maintain safe behavior during the entire hospital stay. He agreed to crisis plan and agreed to return to hospital if signs of decompensation occur. Hehas available support system. He was willing to participate in after care plan. Patient was given action/safety plan of resources that are available if an emergency arises after discharge. BP (!) 158/95 (BP Location: Left arm, Patient Position (BP): Sitting) Pulse 77 Temp (!) 96.6 ??F (35.9 ??C) (Temporal) Resp 18 Ht 6' (1.829 m) Wt 69.9 kg (154 lb) SpO2 100% BMI 20.89 kg/m?? Discharge Mental Status Examination: Alert O X 3, calm, cooperative. Fair hygiene. No psychomotor retardation. No agitation. No AIMs Speech: normal in tone, volume, rate, and spontaneous. Mood : OK Affect: appropriate, stable Thought process: goal directed, no flight of ideas or looseness of association. Thought content: No suicidal ideation, plan , or intent. No Homicidal ideation, plan, or intent. Nodelusions. No auditory or visual hallucinations. Insight: improved. Judgment: improved with clear understanding of right from wrong. Medication List START taking these medications ARIPiprazole 5 mg tablet Commonly known as: ABILIFY Take 1 Tablet (5 mg) by mouth daily. Start taking on: July 01, 2022 Signed by: Dr. Maris Daly MD Quantity: 30 Tablet Refills: 0 mirtazapine 45 mg tablet Commonly known as: REMERON Take 1 Tablet (45 mg) by mouth daily at bedtime. Signed by: Dr. Maris Daly MD Quantity: 30 Tablet Refills: 0 CHANGE how you take these medications Dovato 50-300 mg Tablet What changed: See the new instructions. TAKE ONE TABLET BY MOUTH ONCE EVERY DAY Strength: 50-300 mg Signed by: Dr. Maris Daly MD Quantity: 30 Tablet Refills: 0 Generic drug: dolutegravir-lamiVUDine gabapentin 300 mg capsule Commonly known as: NEURONTIN What changed: See the new instructions. TAKE ONE CAPSULE BY MOUTH THREE TIMES DAILY Strength: 300 mg Signed by: Dr. Maris Daly MD Quantity: 90 Capsule Refills: 0 STOP taking these medications nifedipine 0.2% ointment compound nystatin 100,000 unit/mL suspension Commonly known as: MYCOSTATIN sertraline 50 mg tablet Commonly known as: Zoloft sulfamethoxazole-trimethoprim 800-160 mg tablet Commonly known as: BACTRIM DS triamcinolone acetonide 0.1 % Ointment Commonly known as: KENALOG Where to Get Your Medications These medications were sent to [address], [facility] [address] Hours: Retail 8 AM - 12 AM Daily / ED Service 10 AM - 12 AM Daily ARIPiprazole 5 mg tablet Dovato 50-300 mg Tablet gabapentin 300 mg capsule mirtazapine 45 mg tablet Outcome: stable Prognosis: satisfactory with adherence to medication. Patient Discharged to: home/self Discharging Physician: Maris Daly MD Time Spent: 33 Minutes Next Level of Care Recommendations: PSYCHIATRIC Follow-up: A referral has been sent to [facility] hospital liaison Nel, . Services with [facility] can include medication management, case management, and counseling. It is recommended you follow up with an outpatient psychiatrist for continued medication managementwithin 5 days of discharge, please call Nel tomorrow, 07/01/22. You can follow up with Nel at You can also contact the following number to follow up: [phone] [place] [address] For People [address] [place] [address] National Suicide Prevention Lifeline # 1-238-342-TALK (7611) Crisis Text Line - Text ???Start?? to 740-818 LOPMENT TEAM LEAD documented in this encounter Discharge Instructions * Discharge Instructions* Karen Muñoz MSW - 06/27/2022 4:52 PM DEVELOPMENT TEAM LEAD Please reach out to Nel with [facility] when you are discharged. Nel can connect you with case management and resources. It is strongly recommended you are seen within 5 days of discharge by a psychiatrist. We also recommend you follow up with: [facility] (Formerly [facility]) Please call them to setup case management: [phone] GUARDIAN INFO: Self Tar Worker Name/Number: Lesli Duggan, Friend, HOME PLAN: You will be discharging to [facility]'s phone # is It is strongly recommended you are in line at 4:00/ 4:30 pm [facility] [address] [facility] [address] Hours: 6:00pm-8:00am (Confirmed open 06/30/22) Or [address] [place] [address] Hours: 6:00pm-8:00am (Confirmed open 06/30/22) TRANSPORTATION: Cab PSYCHIATRIC Follow-up: A referral has been sent to [employer] [facility] hospital liaison Nel, . Services with [facility] can include medication management, case management, and counseling. It is recommended you follow up with an outpatient psychiatrist for continued medication managementwithin 5 days of discharge, please call Nel tomorrow, 07/01/22. You can follow up with Nel at You can also contact the following number to follow up: [phone] [facility] [address] [place] [address] National Suicide Prevention Lifeline # 8-195-975-TALK (6322) Crisis Text Line - Text ???Start?? to 708-850 You have been referred to the [facility]. You will be contacted by one of the Suicide Prevention Clinicians within 7 days of discharge If you have any questions please contact the [facility]'s direct line for referred patients at [phone]. Medical Care Resource: [facility] Money Dashboard [facility] [address] [place], [address] OFFICE LOCATION: [facility] [address] [place] [address] ph:[phone]; fx:[phone] Once you have provided the completed application and financial documentation, the office can schedule an appointment. (Your provider has access to your electronic healthcare record for your continuation of care) Please complete your application and provide financial documentation. ADDITIONAL RESOURCES: Shelters and Homeless Resources: Shelters Housing Resources Alf Hotline: [phone] This agency places individuals at [facility] and [facility] when there is openings. Federico and Marshal: [phone] Located at: [address] [place] [address] [facility]: [phone] Located at: [address] [address] Services for Homeless [facility] - [address] Day time drop-in center Showers, laundry, mail services, medical/mental health care, employment/training services, and housing resources. Lunch is every day from 12-12:30 pm. Extended Stay Hotels [facility] - [phone]. Located at [address] [place] [address]. [facility]- [phone]. [address] [place] [address]. [facility] - [phone]. Located [address] [place] [address] Extended Stay [facility] - [phone]. [address] [facility] -[phone]. Located at [address] [place] [address] [employer]- [phone]. Located at [address] [place] [address]. ADDITIONAL RESOURCES MEDICAL CLINICS [facility] - [phone] - [phone] [facility] [address] - [phone] [facility] - [phone] [facility] - [phone] [facility] - [phone] AND [phone] [facility] - [phone] ANGER MANAGEMENT [employer]ER - [phone] DISCOVERY STAR - [phone] COMMUNITY AGENCIES CONSUMER CREDIT COUNSELING - [phone] LEGAL SERVICES OF [facility] - [phone] [facility] - [phone] COMMUNITY ALTERNATIVES - [phone] [employer] - [phone] SOCIAL SECURITY DISABILITY - [phone] [employer] - [phone] [facility] INTAKE SERVICES - [phone] Other: [employer] Hotline Phone number: [phone] ext. 3 -This organization provides and automated list of food pantries by zip code Other: [facility] (low income medical support) Name: [employer]) Address: [address] [place] [address] [place] [address] [address] [place] [address] Phone number: Call [phone] to make an appointment. *Services Include: Adult Medicine; Women's Health/Ultrasounds; Pediatrics; Podiatry; Adult Behavioral Health; Dental; Lab; WIC; Outreach OR Name: [facility] Address: [address] [place] [address] Phone number: *Please bring a photo ID, proof of residency, and proof of income Other: Clothing Resources [facility] CLOTHING [facility]ISTANCE City: [address] [place] [address] County: [address] [place] [address], [address] Clothing at the Clothes Closets for all members of a family. Clothes Closets also features work appropriate clothing and clothing appropriate for those seeking employment opportunities. Other: Food and Clothing Resources [facility] (FATHER ESTRELLITA'Irasema) [address] [facility]. [address] Food pantry and clothing Sunday, Sunday, and Sunday 9:30 am-11:00 am. Matching fund utility aid starting at 6:00 am Sunday, Sunday, and Sunday. They match $25. [employer] OUTREACH [facility] [place] . [address] www.[employer].org/ [phone] Providing nutritional support for men, women, and children living with HIV/AIDS or cancer in the [facility] area. Other: Clothing Resources [address] [facility] [address] Provides help with clothing and is also a food pantry. Serves area between Psychiatric hospital, between [place] and [facility]. Sunday-Sunday, 10:00am-1:00 pm. Other: Vouchers for ID and Certificate [address] [address] Other: [facility] Name: [facility] [place] OR Name: [place] [employer] OTHER for HIV and AIDS: [facility] FOR AIDS [address] [place] [address] . [address] www.E-Diversify Yourself.org/ [phone] or [phone] Provides education on prevention of HIV infection and comprehensive support services to those affected by HIV/AIDS. [facility]/[address] [address] www.[facility].org [phone] Provides housing and related supportive services to improve quality of life and health outcomes forpeople affected by HIV/AIDS. [employer] (Formerly [facility]) [address] [place] [address] . [address] www.E-Diversify Yourself.org/. [phone] or [phone] Provides education on prevention of HIV infection and comprehensive support services to those affected by HIV/AIDS For assistance with discount prescription coupons, please refer to the website [employer]. This website provides discount prescription coupons that can be printed free of charge and used each month for your refills. If you have concerns about your ability to pay for your care or questions about financial assistance and/or [facility] application, please call toll free [phone]. Sliding Scale Counseling Resources All services are based on the client???s ability to pay. Please call for an intake assessment via phone to determined eligibility for services and tell themyou need to pay via sliding scale. They require for you to call to make initial new patient appointment. It is recommended you are seen within 1-2 weeks upon discharge. [facility] [place] - [phone] Care and Counseling - [phone] [facility] - [phone] (website: [employer]) [facility] - [phone] [facility] - [phone] or [facility] Services - [phone] [facility] - [phone] [facility] Counseling - [phone] [facility] Family & Children's Service - [phone] [facility] (therapist Sree Llanos) - [phone] Suicide Prevention/Crisis Hotlines [facility] Behavioral Health Intake Department [phone] [facility] Behavioral Health Intake Department is professionally staffed and offers free, confidential evaluations for anyone needing assistance with a psychiatric, behavioral or addictive disorder. Evaluations, as well as referrals to physicians or community resources, are available 24 hoursa day, 7 days a week. [facility] 618-733-APLB (1589) [facility] is one of the nation???s [facility] suicide prevention and crisis hotlines. [facility] operates 24 hours a day, 7 days a week, 365 days a year. Behavioral Health Response ([facility]) [phone] (toll free) Behavioral Health Response (R) is a professionally staffed crisis response service. R provides expert behavioral health, crisis response, and outreach services, 24 hours a day, seven days a week to agencies and companies worldwide. National Suicide Prevention Hotline 3-101-145-TALK (2982) A free, 24-hour hotline available to anyone in suicidal crisis or emotional distress. Your call will be routed to the nearest crisis center to you. National Hopeline Network 3-291-UBDEESJ KUTO (Kids Under Twenty-One) Crisis Helpline 0-899-871-KUTO (0863) Youth staffed every day after 4pm DEVELOPMENT TEAM LEAD The DAIN Crisis Helpline is a confidential telephone hotline available to any youth who may be in need of assistance, referral information or crisis services. The [facility] Helpline is one of a handful oflamar regional hospital staffed exclusively by youth volunteers. National [place] on Mental Illness ([facility]) [phone] A referral for smoking cessation support/counseling services was offered to you; however, you have refused that referral at this time. If you would like smoking cessation resources in the future, youare advised to contact the [place] Tobacco Quitline. 8-460-CIXX-NOW LOPMENT TEAM LEAD LOPMENT TEAM LEAD LOPMENT TEAM LEAD LOPMENT TEAM LEAD LOPMENT TEAM LEAD LOPMENT TEAM LEAD LOPMENT TEAM LEAD LOPMENT TEAM LEAD LOPMENT TEAM LEAD documented in this encounter Medications at Time of Discharge ARIPiprazole (ABILIFY) 5 mg tablet Starting 07/01 Take 1 Tablet (5 mg) by mouth daily. 30 Tablet 06/30/2022 11:11 AM DEVELOPMENT TEAM LEAD 07/01/2022 07/31/2022 gabapentin (NEURONTIN) 300 mg capsuleIndicatio ns:Myelopathy associated with HIV infection Take 1 Capsule (300 mg) by mouth 3 times daily. 90 Capsule 06/30/2022 11:11 AM DEVELOPMENT TEAM LEAD 06/30/2022 07/16/2023 mirtazapine (REMERON) 45 mg tablet Take 1 Tablet (45 mg) by mouth daily at bedtime. 30 Tablet 06/30/2022 11:11 AM DEVELOPMENT TEAM LEAD 06/30/2022 07/16/2023 bictegravir-emtr icitabine-tenofo vir alafenam (Biktarvy) 50-200-25 mg Tablet Take 1 Tablet by mouth daily. 30 Tablet 06/30/2022 11:11 AM DEVELOPMENT TEAM LEAD 06/30/2022 02/08/2024 documented as of this encounter Progress Notes * Karen Muñoz MSW - 06/30/2022 12:25 PM CST 06/30/22 1224 Discharge Planning Plan Discharge To Home independently Discharge Plan Agreed Upon Patient Resource List Given To Patient Follow-up on Referrals Sent Yes Final Discharge Arrangements Attempt Made to Contact Caregiver? Yes CareGiver agreeable to discharge plan Yes Anticipated Discharge Disposition Home ([employer] [facility], follow up 07/01/22) Services Arranged For Discharge Mental health Agency Name [facility] Firearms secured Yes Safety Plan completed Yes Access to meds at discharge Yes Duty to warn complete N/A Transportation Provider Cab AIDE Lee LOPMENT TEAM LEAD * Maris Daly MD - 06/29/2022 9:26 AM CST [facility] INPATIENT PROGRESS NOTE SUBJECTIVE Chief Complaint: I took shower Interval History of Present Illness: The medical record reflects the history of present illness as obtained in discussion with the patient. I reviewed the chart, discussed patient???s care with the treatment team and interviewed the patient. During the session, patient reported that he took shower this morning. He related it from health education yesterday as was not attending to self care. He stated that he wanted to work with SW for safe placement after discharge. Sense of helplessness noted. However, less negativistic in outlook. Receptive to supportive therapy. Associated Symptoms: Mood: anxious and depressed . Appetite: normal . Sleep: normal. Per staff: Sleep/Rest/Relaxation: no problem identified (06/29/22556), Sleep HoursNight (6p-6a): 10 (06/29/22556) Nervous, restless, or on edge:yes . Energy: varying, Concentration: poor. Hopelessness: yes. Hallucinations: no. Delusions: no. Suicidal ideation: not today . Homicidal ideation: no. Self Harm Urges: no. Adherence to medication: yes Side effects noted or reported: no Staff report: Behavioral disturbance noted or reported: no Participation in therapeutic activities: Partial Family & Social History: [x] No changes from admission [] Changes/additions include: Current Medications: Facility-Administered Medications as of 06/29/2022 Medication Dose Frequency Provider Last Rate Last Admin mirtazapine (REMERON) tablet 30 mg 30 mg daily BEDTIME Maris Daly MD 30 mg at 06/28/222025 ARIPiprazole (ABILIFY) tablet 5 mg 5 mg daily Maris Daly MD traZODone (DESYREL) tablet 100 mg 100 mg at bedtime PRN Avtar Ballard MD benztropine (COGENTIN) tablet 1 mg 1 mg every 12 hours PRAvtar Boykin MD benztropine (COGENTIN) injection 1 mg 1 mg every 12 hours PRAvtar Boykin MD aluminum - magnesium - simethicone (MYLANTA) 200-200-20 mg/5 mL oral suspension 30 mL 30 mL every 6hours PRAvtar Boykin MD promethazine (PHENERGAN) tablet 25 mg 25 mg every 4 hours PRAvtar Boykin MD polyethylene glycol (MIRALAX) packet 17 Gram 17 Gram every 12 hours PRAvtar Boykin MD loperamide (IMODIUM) capsule 2 mg 2 mg every 4 hours PRAvtar Boykin MD acetaminophen (TYLENOL) tablet 650 mg 650 mg every 4 hours PRAvtar Boykin MD ibuprofen (MOTRIN) tablet 400 mg 400 mg every 6 hours PRAvtar Boykin MD haloperidol lactate (HALDOL) injection 5 mg 5 mg every 2 hours PRAvtar Boykin MD And diphenhydrAMINE (BENADRYL) injection 50 mg 50 mg every 2 hours PRN Avtar Ballard MD hydrOXYzine HCL (ATARAX) tablet 50 mg 50 mg every 1 hour PRN Avtar Ballard MD gabapentin (NEURONTIN) capsule 300 mg 300 mg every 8 hours Maris Daly MD 300 mg at 06/28/222025 Review of Systems: Constitutional: No fever HENT: No congestion Eyes: No visual disturbance Respiratory: No cough Cardiovascular: No chest pain Gastrointestinal: No vomiting, Musculoskeletal: No back pain Skin: No rash or wound Neurological: No weakness OBJECTIVE Vital Signs: BP (!) 158/95 (BP Location: Left arm, Patient Position (BP): Sitting) Pulse 77 Temp (!) 96.6 ??F (35.9 ??C) (Temporal) Resp 18 Ht 6' (1.829 m) Wt 69.9 kg (154 lb) SpO2 100% BMI 20.89 kg/m?? Mental Status Evaluation: Appearance: In hospital scrubs Psychomotor activity Mildly incresaed Behavior: Cooperative Speech: rapid Mood: depressed Affect: mood-congruent Thought Process: Increased flow Associations: circumstantial Thought Content: appropriate responses to questions asked Sensorium: Alert. Oriented to person, place, and time/date Concentration: intact to conversation Insight: Partial Judgment: Partial Muscle strength and Tone: Normal/normal Gait/Station: normal. Labs: I have reviewed all labs; pertinent results are noted below. No results found for this or any previous visit (from the past 24 hour(s)). ASSESSMENT Bipolar disorder, current episode mixed, moderate Principal Problem: Bipolar disorder, current episode mixed, moderate Active Problems: HIV infection Major depressive disorder, recurrent episode, moderate RENEE (generalized anxiety disorder) Unilateral inguinal hernia without obstruction or gangrene Plan Medication plan: Alternative treatment options, risks and benefits were reviewed. Will optimize Remeron and Abilify for mood symptoms. Tolerating lower dose well. Medical Hospitalist will address somatic issues. Supportive therapy was provided and will be continued. Psychoeducation and medication education will be continued as needed. Patient agreed with the plan. Further adjustment will be decided based on progress and consent. Safety plan was reviewed; patient???s safety will remain monitored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 HENT: Head: Normocephalic and atraumatic. Eyes: Conjunctiva/sclera: [...] Skin is warm and dry. Findings: No erythema. Neurological: Mental Status: He is alert and oriented to person, place, and time. GCS: GCS eye subscore is 4. GCS verbal subscore is 5. GCS motor subscore is 6. Cranial Nerves: Cranial nerves 2-12 are intact. Sensory: Sensation is intact. Motor: Motor function is intact. Coordination: Coordination is intact. Gait: Gait is intact. Psychiatric: Behavior: Behavior normal. Thought Content: Thought content includes suicidal ideation. Thought content includes suicidal plan. DIAGNOSTICS LAB: No data to display RADIOLOGY: No orders to display EKG: PROCEDURES Procedures MEDICAL DECISION MAKING AND PLAN OF CARE --upon initial evaluation, patient was seen and examined by me. Will have patient speak with the [facility] intake counselor for further evaluation. ED provider and ED nurse verbally discussed patient plan of care at this time. 8:42 PM: Intake counselor has evaluated patient and recommends admission [facility] underDr. Willett. MDM Summary Statement: Patient is a 26 y.o. male who was seen by counseling. Based on the patient's history, physical examination, and indicated laboratory and/or imaging studies, no acute medical conditions are apparent at this time to preclude a psychiatric disposition. I have reviewed previous: notes I have reviewed current: labs . New Prescriptions for this Encounter LAST VS BP: 132/80 (06/26/221849), Heart Rate: 87 bpm (06/26/221842), Resp: 20 (06/26/221842), Pulse: 87(06/26/221842), Temp: 98.7 ??F (37.1 ??C) (06/26/221842), Temp src: Oral (06/26/221842), SpO2: 100 % (06/26/221842) CLINICAL IMPRESSION Final diagnoses: [F33.2] Severe episode of recurrent major depressive disorder, without psychotic features (Primary) DISPOSITION, EDUCATION AND MEDICATION RECONCILIATION Medications reconciled. See after visit summary for patient education on discharged patients. ED Disposition ED Disposition Admit Condition Stable User Hood Auguste MD Date/Time SunJun 26, 2022 8:43 PM Comment -- ATTESTATION STATEMENTS This note has been prepared by Ivy Paulino acting as a scribe for Dr. Hood Auguste on 06/26/2022 at 8:45 PM. The scribe's documentation has been prepared under my direction and personally reviewed by me, Dr. Hood Auguste, in its entirety on 06/26/22 at 8:48 PM. I confirm that the note above accurately reflects all work, treatment, procedures, and medical decision making performed by me. Diagnosis Diagnosis Comment Added By Time Added Severe episode of recurrent major depressive disorder, without psychotic features [F33.2] Hood Auguste MD 06/26/2022 8:47 PM LOPMENT TEAM LEAD documented in this encounter Miscellaneous Notes * Care Plan - Karen Muñoz MSW - 06/30/2022 11:25 AM CST CM spoke to CP Lesli Duggan, Friend, . She reports understanding of the discharge plan. She does not have any additional questions or concerns at this time. CP inquired with the pt if CM could speak with him about not contacting her so much, CM encouraged CP to have that conversation with him directly and setting boundaries. Also advised the pt is being linked up with community services that hopefully that will alleviate some of the desire to call her so much. BERTA also followed up with Nel from [employer] and she is meeting with pt today. CM also resent referral to [facility] and staffed with cloth laminating supervisor. CM called around to different agencies to see who can offer support and/ or housing. AIDE Lee LOPMENT TEAM LEAD * Care Yosef - Karen Muñoz MSW - 06/30/2022 11:14 AM CST BERTA spoke to Latoya lainez who reports CM needs to speak to someone with [facility], CM was transferred. CM followed up with Aby, . CM left a message. AIDE Lee LOPMENT TEAM LEAD * Care Yosef - Karen Muñoz MSW - 06/30/2022 10:32 AM CST CM followed up with [facility] BERTA in regards to h2h. She reports she did not receive the referral on Sunday. CM advises she will resend and inquires if h2h could possibly still see pt today,she reports I cannot see this pt today with such late notice . CM sending new referral, they are aware he is discharging today. AIDE Lee LOPMENT TEAM LEAD * Care Plan - Karne Muñoz MSW - 06/30/2022 9:57 AM CST CM spoke to [facility] social services who stated the pt was discharged from their program in July of 2021. She also stated the pt might be established with [facility] which is a program that offers CM for HIV ([phone]). She reports the pt would have to start the full application over for [facility] clinic support. CM reached to [facility] to see if the pt has a pillowcase cleaner with them for support of navigating his healthcare; they are unable to speak to CM due to HIPPA. CM will provide contact information to pt. AIDE Lee LOPMENT TEAM LEAD * Care Yosef - Karen Muñoz MSW - 06/30/2022 9:27 AM CST CM went to unit and met with pt to obtain a signed PARK with name and phone number of friend. CM also discussed where the pt was planning to go and he reported a snf. CM discussed primary CM had made some referrals for the pt but we are still in the referral process as we have not heard back from the case mangers. CM advised if pt is discharging today we would have to discharge to [facility] and educated pt this is a walk up snf and it opens at 6. Pt was agreeable as he states he has to work tomorrow . CM inquired where the pt was working and he stated [employer] . CM advised location of this snf and pt reports that it would be fine . Nurse is going to work with pt to get his phone, to obtain phone number/s. AIDE Lee LOPMENT TEAM LEAD * Care Plan - Mingo Roger, VICTOR MANUEL - 06/30/2022 8:51 AM CST DISCHARGE NOTE The following items have been completed prior to discharge: [x]Discharge follow up plan completed by social work, and present in AVS. [x]Specific follow up appointment made by social work, and contact information in AVS. If the above 2 points are not marked as complete, the following action has been completed. []vegetable worker unavailable to see patient prior to discharge, clinical cloth laminating supervisor/charge nurse notified to ensure discharge plan [...] and he is discharged with belongings to snf via cab. [] Patient is being discharged to an inpatient facility. Report has been given to accepting facility. All questions have been answered regarding patient care. Phil escorted off unit on (Date)06/30/22 at (Time)1625 LOPMENT TEAM LEAD * Care Plan - Mikey Nolan RN - 06/30/2022 6:12 AM CST Phil remained free from harm throughout shift. No signs or reports of discomfort or distress. Phil maintained on rounds every 15 minutes for safety. Staff will continue to monitor Phil for safety and provide support as needed. Sleep Hours Night (6p-6a): 11 (06/30/22553) Sleep/Rest/Relaxation: no problem identified (06/30/22553) Sleep Location: assigned bed (06/28/22599) Patient/Guardian agrees with sleep location: Yes (06/28/22599) If applicable, detailed reason for alternate sleep location: Rotor Casting Machine Setup Operator/Nursing leader notified: LOPMENT TEAM LEAD * Care Plan - Mikey Nolan RN - 06/30/2022 12:31 AM CST Shift Narrative: Phil remained in room throughout shift. Nourishment offered. Patient is calm and med compliant. Pt responded with short mhm, yep and nope answers to assessment questions. Denies SI/HI/AVH. Ptagrees to notify staff of any changes. Support given, will continue to monitor. Precautions Behavioral Health Precautions: Suicide precautions (06/29/222029) Summary of Phil's problems and interventions: (See flowsheets for more detailed summary) Plan of Care Reviewed with: patient (06/29/222029) Patient's Individualized Goal: I don't know man (06/29/222029) Phil's response to interventions this shift: Accepting Phil's perception of symptoms and progress toward goals: not changed Discharge follow up plan reviewed/discussed during the 1:1 shift interview: no Does the patient have a legal guardian? No If yes, describe: Does the patient have a Power of Credit Authorizer? No If yes, describe: Legal Status: Voluntary MENTAL HEALTH ASSESSMENT: Behavior: Calm;Cooperative;Guarded (06/29/222029) Observed Emotional State: accepting (06/29/222029) Verbalized Emotional State: acceptance (06/29/222029) Speech: No problems observed (06/29/222029) Thought Processes: Logical (06/29/222029) Social Judgement: Difficulty in problem solving (06/29/222029) Appearance: Appears stated age (06/29/222029) Risk Assessment 1. Have you wished you were or wished you could go to sleep and not wake up?: Yes (06/29/222029) 2. Have you actually had any thoughts of killing yourself?: No (06/29/222029) 6. Have you ever done anything, started to do anything, or prepared to do anything to end your life?: No (06/29/222029) Suicide Risk and Interventions: High (06/29/222029) Depressive Symptoms Symptoms: Change in energy level (06/29/222029) Describe: pt denies (06/29/222029) Anxiety Symptoms Symptoms: No problems reported or observed (06/29/222029) Describe: pt denies (06/29/222029) Manic Symptoms Symptoms: No problems reported or observed (06/29/222029) Describe: no s/s (06/29/222029) Psychotic Symptoms Hallucination Type: No problems reported or observed (06/29/222029) Onset of Current Symptoms: no s/s (06/29/222029) Delusion Type: No problems reported or observed (06/29/222029) Onset of Current Symptoms: no s/s (06/29/222029) Homicidal Ideation Violence-Risk Towards Others In the past month have you had thoughts of harming another person?: No (06/29/222029) [facility] Confusion - Appears obviously confused and disoriented. May be unaware of person, place, time.: No (06/29/222029) Irritability - Easily annoyed or angered. Unable to tolerate the presence of others.: No (06/29/222029) Boisterous - Behavior is overtly loud or noisy. For example slams doors, shouts out when talking etc.: No (06/29/222029) Verbal Threat - A verbal outburst which is more than just a raised voice and where there is a definite intent to intimidate or threaten another person. For example, verbal attacks, abuse, name-calling, verbally neutral comments uttered in a snarling aggressive manner.: No (06/29/222029) Physical Attacks - Where there is a definite intent to physically threaten another person. For example, the taking of an aggressive stance, the grabbing of another person???s clothing, the raising ofan arm or leg, making a fist or modeling a head-butt directed at another. : No (06/29/222029) Attacks on Objects - An attack directed at an object and not an individual. For example, the indiscriminant throwing of an object, banging or smashing windows, kicking, banging or head butting an object or the smashing of furniture. : No (06/29/222029) Total: 0 (06/29/222029) CHELE Behaviors Assessing Overt Behavior for CHELE: None noted (06/29/222029) Tar Worker Communication Tar Worker Name: Update provided: [] Yes [x] No Summary of conversation: Any concerns (if yes, please explain): Voicemail left for career manager: [x] N/A [] No [] Yes: Date/Time Medical Issues/New Medication Teaching Phil was informed about benefits and any potential clinically significant side effects or other concerns regarding the administration of the medication he was given. See separate notes for any prn medications provided during shift. LOPMENT TEAM LEAD * Care Plan - Mikey Nolan RN - 06/29/2022 9:20 PM CST During this shift, Phil was given the prn medication trazodone for insomnia, as demonstrated by the following behavior: per patient request (See MAR for administration time.) Approximately 1 hour after medication administration, Phil appeared or reported the following: pt appears asleep LOPMENT TEAM LEAD * Care Plan - Yumiko Metz MSW - 06/29/2022 3:36 PM CST Problem: Discharge Planning Goal: Identify discharge needs upon admission and through discharge Description: Outcome: Progressing SW met with pt on the unit. SW provided update on [facility] referral and [facility] referral. Pt agreeable to meet with both referral agencies. Pt asked SW to look into [facility]. SW agreeable. Pt has no additional questions or concerns. SW to follow up on d/c planning. SW called Latoya who runs [facility] ). SW inquired about how to get someone connected to housing. Soil Biology Teacher reported the pt's Nolan Lozano [employer] needs to sendthe referral. SW reports understanding and will notify the pt. LOPMENT TEAM LEAD * Treatment Plan - Marianne Becerra - 06/29/2022 11:53 AM CST 1025 am- SPC spoke with pt's RN to see if pt was available to do CAMS assessment. RN reported that pt is available, calm, and cooperative. 1030 am: SPC met with pt about [facility] and explained how the CAMS assessment is administered. SPC reviewed over confidentiality and assessed for any safety concerns. Pt denied having current SI/HI. SPC assessed for trauma, psychosis/delusions and substance abuse history. SPC and pt completed the collaborative CAMS assessment, treatment plan, [place], demographics, Covid-19 screener,and stabilization plan. SPC validated pt's feelings/emotions and provided in the moment support. SPC offered pt f/u upon discharge and pt agreed. SPC gave a copy of the Stabilization Plan to patient.SPC made a copy of the CAMS and placed in patients hard copy file in the unit. 1150 am- SPC spoke with pt's [employer]er And [employer]aker and informed her that pt has agreed to be a part of [facility] and pt will receive f/u after discharge. LOPMENT TEAM LEAD * Care Plan - Mingo Roger RN - 06/29/2022 10:54 AM CST Shift Narrative: Phil has been calm, cooperative, and guarded during today's shift. He has denied feeling any anxiety or depression, SI, HI, or AVH. He has denied pain. Phil stated his goal for today it to setup a safety plan for after discharge. He has been compliant with medications and meals. He attended some groups and has been seen in the day room. He has been approperate with staff and peers Phil has agreed to contract for safety and to notify staff of any changes. Precautions Behavioral Health Precautions: Suicide precautions (06/29/22920) Summary of Phil's problems and interventions: (See flowsheets for more detailed summary) Plan of Care Reviewed with: patient (06/29/22920) Patient's Individualized Goal: get balanced (06/28/22840) Phil's response to interventions this shift: Accepting Phil's perception of symptoms and progress toward goals: improved Discharge follow up plan reviewed/discussed during the 1:1 shift interview: yes Does the patient have a legal guardian? No If yes, describe: Does the patient have a Power of Credit Authorizer? No If yes, describe: Legal Status: Voluntary MENTAL HEALTH ASSESSMENT: Behavior: Calm;Cooperative;Guarded (06/29/22920) Observed Emotional State: accepting (06/29/22920) Verbalized Emotional State: acceptance (06/29/22920) Speech: No problems observed (06/29/22920) Thought Processes: Logical (06/29/22920) Social Judgement: Difficulty in problem solving (06/29/22920) Appearance: Appears stated age (06/29/22920) Risk Assessment 1. Have you wished you were or wished you could go to sleep and not wake up?: Yes (06/29/22920) 2. Have you actually had any thoughts of killing yourself?: No (06/29/22920) 6. Have you ever done anything, started to do anything, or prepared to do anything to end your life?: No (06/29/22920) Suicide Risk and Interventions: High (06/29/22920) Depressive Symptoms Symptoms: Change in energy level;Loss of interest (06/29/22920) Describe: currently denies (06/29/22920) Anxiety Symptoms Symptoms: No problems reported or observed (06/29/22920) Describe: currently denies (06/29/22920) Manic Symptoms Symptoms: No problems reported or observed (06/29/22920) Describe: no s/s (06/29/22920) Psychotic Symptoms Hallucination Type: No problems reported or observed (06/29/22920) Onset of Current Symptoms: denies (06/29/22920) Delusion Type: No problems reported or observed (06/29/22920) Onset of Current Symptoms: denies (06/29/22920) Homicidal Ideation Violence-Risk Towards Others In the past month have you had thoughts of harming another person?: No (06/29/22920) Broset Broset Violence Checklist Confusion - Appears obviously confused and disoriented. May be unaware of person, place, time.: No (06/29/22920) Irritability - Easily annoyed or angered. Unable to tolerate the presence of others.: No (06/29/22920) Boisterous - Behavior is overtly loud or noisy. For example slams doors, shouts out when talking etc.: No (06/29/22920) Verbal Threat - A verbal outburst which is more than just a raised voice and where there is a definite intent to intimidate or threaten another person. For example, verbal attacks, abuse, name-calling, verbally neutral comments uttered in a snarling aggressive manner.: No (06/29/22920) Physical Attacks - Where there is a definite intent to physically threaten another person. For example, the taking of an aggressive stance, the grabbing of another person???s clothing, the raising ofan arm or leg, making a fist or modeling a head-butt directed at another. : No (06/29/22920) Attacks on Objects - An attack directed at an object and not an individual. For example, the indiscriminant throwing of an object, banging or smashing windows, kicking, banging or head butting an object or the smashing of furniture. : No (06/29/22920) Total: 0 (06/29/22920) CHELE Behaviors Assessing Overt Behavior for CHELE: None noted (06/29/22920) Tar Worker Communication Tar Worker Name:Pt declined Update provided: [] Yes [x] No Summary of conversation: Any concerns (if yes, please explain): Voicemail left for career manager: [] N/A [] No [] Yes: Date/Time Medical Issues/New Medication Teaching Phil was informed about benefits and any potential clinically significant side effects or other concerns regarding the administration of the medication he was given. See separate notes for any prn medications provided during shift. LOPMENT TEAM LEAD * Care Plan - Derrick Wise RN - 06/29/2022 7:30 AM CST Phil remained free from harm throughout shift. No signs or reports of discomfort or distress. Phil maintained on rounds every 15 minutes for safety. Staff will continue to monitor Phil for safety and provide support as needed. Sleep Hours Night (6p-6a): 10 (06/29/22556) Sleep/Rest/Relaxation: no problem identified (06/29/22556) Sleep Location: assigned bed (06/28/22 0600) Patient/Guardian agrees with sleep location: Yes (06/28/22 0600) If applicable, detailed reason for alternate sleep location: Rotor Casting Machine Setup Operator/Nursing leader notified: LOPMENT TEAM LEAD * Care Plan - Yumiko Metz MSW - 06/28/2022 1:19 PM CST Problem: Discharge Planning Goal: Identify discharge needs upon admission and through discharge Description: Outcome: Progressing SW made referral to [address] program. SW made referral to [facility]. SW called [facility] ([phone]). SW informed that a pt interested in services needs to call [facility] at [phone]. SW to provide to pt. LOPMENT TEAM LEAD * Care Plan - Wesley Menjivar RN - 06/28/2022 12:02 PM CST Shift Narrative: Phil was calm and cooperative throughout shift. Pt denied SI/HI/AVH/Delusions. Pt rated anxiety at a 10/10. Pt rated depression at a 7/10. Pt is medication and meal compliant. Contracts for safety. Pt attends a group and interacts appropriately with staff and peers. Pt isolates through afternoon to room. Staff will continue to monitor pt for safety and provide support as needed. Precautions Behavioral Health Precautions: Suicide precautions (06/28/22840) Summary of Phil's problems and interventions: (See flowsheets for more detailed summary) Plan of Care Reviewed with: patient (06/28/22840) Patient's Individualized Goal: get balanced (06/28/22840) Phil's response to interventions this shift: Accepting Phil's perception of symptoms and progress toward goals: improved Discharge follow up plan reviewed/discussed during the 1:1 shift interview: no Does the patient have a legal guardian? No If yes, describe: Does the patient have a Power of Credit Authorizer? No If yes, describe: Legal Status: Voluntary MENTAL HEALTH ASSESSMENT: Behavior: Calm;Isolative (06/28/22840) Observed Emotional State: anxious;sad (06/28/22840) Verbalized Emotional State: anxiety;depression (06/28/22840) Speech: No problems observed (06/28/22840) Thought Processes: Logical (06/28/22840) Social Judgement: Difficulty in problem solving (06/28/22840) Appearance: Poor hygiene (06/28/22840) Risk Assessment 1. Have you wished you were or wished you could go to sleep and not wake up?: Yes (06/28/22840) 2. Have you actually had any thoughts of killing yourself?: No (06/28/22840) 6. Have you ever done anything, started to do anything, or prepared to do anything to end your life?: No (06/28/22840) Suicide Risk and Interventions: High (06/28/22840) Depressive Symptoms Symptoms: Change in energy level (06/28/22840) Describe: pt rates 01/29 (06/28/22840) Anxiety Symptoms Symptoms: Generalized (06/28/22840) Describe: pt rates 05/01 (06/28/22840) Manic Symptoms Symptoms: No problems reported or observed (06/28/22840) Describe: no s/s (06/28/22840) Psychotic Symptoms Hallucination Type: No problems reported or observed (06/27/222151) Onset of Current Symptoms: no s/s (06/28/22840) Delusion Type: No problems reported or observed (06/28/22840) Onset of Current Symptoms: none voiced (06/28/22840) Homicidal Ideation Violence-Risk Towards Others In the past month have you had thoughts of harming another person?: No (06/28/22840) Broset Broset Violence Checklist Confusion - Appears obviously confused and disoriented. May be unaware of person, place, time.: No (06/28/22840) Irritability - Easily annoyed or angered. Unable to tolerate the presence of others.: No (06/28/22840) Boisterous - Behavior is overtly loud or noisy. For example slams doors, shouts out when talking etc.: No (06/28/22840) Verbal Threat - A verbal outburst which is more than just a raised voice and where there is a definite intent to intimidate or threaten another person. For example, verbal attacks, abuse, name-calling, verbally neutral comments uttered in a snarling aggressive manner.: No (06/28/22840) Physical Attacks - Where there is a definite intent to physically threaten another person. For example, the taking of an aggressive stance, the grabbing of another person???s clothing, the raising ofan arm or leg, making a fist or modeling a head-butt directed at another. : No (06/28/22840) Attacks on Objects - An attack directed at an object and not an individual. For example, the indiscriminant throwing of an object, banging or smashing windows, kicking, banging or head butting an object or the smashing of furniture. : No (06/28/22840) Total: 0 (06/28/22840) CHELE Behaviors Assessing Overt Behavior for CHELE: None noted (06/28/22840) Tar Worker Communication Tar Worker Name: pt declined Update provided: [] Yes [x] No Summary of conversation: Any concerns (if yes, please explain): Voicemail left for career manager: [x] N/A [] No [] Yes: Date/Time Medical Issues/New Medication Teaching Phil was informed about benefits and any potential clinically significant side effects or other concerns regarding the administration of the medication he was given. See separate notes for any prn medications provided during shift. LOPMENT TEAM LEAD * Care Plan - Lizbeth Cavanaugh RN - 06/28/2022 6:21 AM CST Phil remained free from harm throughout shift. No signs or reports of discomfort or distress. Phil maintained on rounds every 15 minutes for safety. Staff will continue to monitor Phil for safety and provide support as needed. Sleep Hours Night (6p-6a): 7.5 (06/28/22599) Sleep/Rest/Relaxation: no problem identified (06/28/22599) Sleep Location: assigned bed (06/28/22599) Patient/Guardian agrees with sleep location: Yes (06/28/22599) If applicable, detailed reason for alternate sleep location: brody Rotor Casting Machine Setup Operator/Nursing leader notified: a LOPMENT TEAM LEAD * Care Plan - Lizbeth Cavanaugh RN - 06/28/2022 3:04 AM CST Shift Narrative: Pt spent shift isolating in room. Pt did not socialize with peers or staff. Pt rates anxiety and depression 03/01. Pt denies SI/HI/AVH. Pt encouraged to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 (06/27/22409) Broset Broset Violence Checklist Confusion - Appears obviously confused and disoriented. May be unaware of person, place, time.: No (06/27/22409) Irritability - Easily annoyed or angered. Unable to tolerate the presence of others.: No (06/27/22409) Boisterous - Behavior is overtly loud or noisy. For example slams doors, shouts out when talking etc.: No (06/27/22409) Verbal Threat - A verbal outburst which is more than just a raised voice and where there is a definite intent to intimidate or threaten another person. For example, verbal attacks, abuse, name-calling, verbally neutral comments uttered in a snarling aggressive manner.: No (06/27/22409) Physical Attacks - Where there is a definite intent to physically threaten another person. For example, the taking of an aggressive stance, the grabbing of another person???s clothing, the raising ofan arm or leg, making a fist or modeling a head-butt directed at another. : No (06/27/22409) Attacks on Objects - An attack directed at an object and not an individual. For example, the indiscriminant throwing of an object, banging or smashing windows, kicking, banging or head butting an object or the smashing of furniture. : No (06/27/22409) Total: 0 (06/27/22409) CHELE Behaviors Assessing Overt Behavior for CHELE: None noted (06/27/22409) VITALS Last BP: 129/76 (06/27/22354) Last Pulse: 66 (06/27/22354) Last Temp: 97.8 ??F (36.6 ??C) (06/27/22354) Last Resp: 18 (06/27/22354) Patient Monitoring Status: Every 15 Minute Safety Rounds Safety precautions initiated: Suicide Safety precautions maintained per physician order and unit protocols. LOPMENT TEAM LEAD LOPMENT TEAM LEAD * Care Plan - Mahsa Mansfield RN - 06/27/2022 3:56 AM CST Behavioral Health Adult Admission Standing Orders [facility] Behavioral Health ORDERS ARE ENTERED ???PER PROTOCOL [...] Ancillary Medications: Patients 18-64 Years of Age: Ztdzfhvfyi-xcyidxh-xounbrcymtwd (CEPACOL) lozenge 1 each, Mouth/Throat, EVERY 2 [...] Patients 65 Years of Age and Older: Duupdwmrwh-fscrumw-hatuktvljkmr (CEPACOL) lozenge 1 each, Mouth/Throat, EVERY 2 [...] 4 hours prn for diarrhea/loose stools. Admin Instructions: No more than 8 capsules (16 mg) per [...] Revised: 08/01/21 Approved by: Dawson Armenta MD, Spot Cleaner [facility] Date: 01/31/2019 Approved by: Behavioral Health Leadership, Olena Treviño MA, SOCIAL SCIENCES RESEARCH SCIENTIST, Supervisor Intelligence Analyst Behavioral [facility] Date: 09/07/21 Approved by: Behavioral [facility], Date: 09/07/21 Approved by: Pharmacy & Therapeutics Committee Date: 08/2021 Approved by: Medical Executive Committee Date: 08/2021 LOPMENT TEAM LEAD * ED Bed Hold Comment Note - Jeffrey An RN - 06/26/2022 6:25 PM DEVELOPMENT TEAM LEAD Bed: 56 Expected date: 06/26/22 Expected time: 6:17 PM Means of arrival: Comments: [id number] 26M SI LOPMENT TEAM LEAD documented in this encounter Plan of Treatment Not on file documented as of this encounter Procedures Procedure Name Priority Date/Time Associated Diagnosis Comments INFLUENZA A/B, RSV AND COVID-19 PCR PANEL Stat 06/26/2022 9:33 PM DEVELOPMENT TEAM LEAD INFLUENZA A/B AND COVID-19 PCR PANEL Stat 06/26/2022 9:33 PM DEVELOPMENT TEAM LEAD RSV, PCR DETECTION Stat 06/26/2022 9: 33 PM DEVELOPMENT TEAM LEAD documented in this encounter Results * RSV, PCR DETECTION (06/26/2022 9:33 PM DEVELOPMENT TEAM LEAD) RSV by PCR NOT DETECTED Not Detected 06/26/2022 10:59 PM DEVELOPMENT TEAM LEAD [facility] Upper Respiratory ENTIRE NASOPHARYNX / Unknown Collection / Unknown 06/26/2022 9:33 PM DEVELOPMENT TEAM LEAD 06/26/2022 9:36 PM DEVELOPMENT TEAM LEAD Hood Auguste MD MICRO - GEN ORDERABLES COM F inal Result [facility]# [id number] [address] [place] [address] * INFLUENZA A/B AND COVID-19 PCR PANEL (06/26/2022 9:33 PM DEVELOPMENT TEAM LEAD) Pathologist [facility] Influenza A by PCR NOT DETECTED Not Detected 06/26/2022 10:59 PM DEVELOPMENT TEAM LEAD [facility] Influenza B by PCR NOT DETECTED Not Detected 06/26/2022 10:59 PM DEVELOPMENT TEAM LEAD [facility] COVID-19 PCR NOT DETECTED Not Detected 06/26/20 10:59 PM DEVELOPMENT TEAM LEAD [facility] Upper Respiratory ENTIRE NASOPHARYNX / Unknown Collection / Unknown 06/26/2022 9:33 PM DEVELOPMENT TEAM LEAD 06/26/2022 9:36 PM DEVELOPMENT TEAM LEAD Narrative [facility] - 06/26/2022 10:59 PM DEVELOPMENT TEAM LEAD This test has been authorized by the FDA under an Emergency Use Authorization for use by authorized laboratories. ??This test has been validated in accordance with the FDA's guidance regarding Coronavirus Disease-2019 testing. ??Optimum specimen types and timing for peak viral levels during infection have not been determined. ??A negative RT-PCR result does not rule out infection with the 2019-Novel Coronavirus. Hood Auguste MD MICROBIOLOGY - GENERAL ORDER ALOK Final Result [facility] 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 Major depressive disorder, recurrent episode, moderate RENEE (generalized anxiety disorder) Generalized anxiety disorder Unilateral inguinal hernia without obstruction or gangrene Inguinal hernia without mention of obstruction or gangrene, unilateral or unspecified, (not specified as recurrent) HIV infection Asymptomatic human immunodeficiency virus (HIV) infection status documented in this encounter Administered Medications Inactive Administered Medications - up to 3 most recent administrations Medication Order MAR Action Action Date Dose Rate Site acetaminophen (TYLENOL) tablet 650 mg 650 mg, Oral, EVERY 4 HOURS PRN, Starting on Sun06/27/22 at 0353, Until Sun06/30/22 at 1905, Other (See Comment), See Admin Instructions, Routine aluminum - magnesium - simethicone (MYLANTA) 200-200-20 mg/5 mL oral suspension 30 mL 30 mL, Oral, EVERY 6 HOURS PRN, Starting on Sun06/27/22 at 0353, Until Sun06/30/22 at 1905, Other (See Comment), GI Upset, Routine ARIPiprazole (ABILIFY) tablet 2 mg 2 mg, Oral, DAILY, First dose on Sun06/27/22 at 1200, Until Discontinued, Routine Given 06/28/2022 8:16 AM DEVELOPMENT TEAM LEAD 2 mg Given 06/27/2022 12:36 PM DEVELOPMENT TEAM LEAD 2 mg ARIPiprazole (ABILIFY) tablet 5 mg 5 mg, Oral, DAILY, First dose (after last modification) on Lara 06/29/22 at 0900, Until Discontinued, Routine Given 06/30/2022 8:06 AM DEVELOPMENT TEAM LEAD 5 mg Given 06/29/2022 9:37 AM DEVELOPMENT TEAM LEAD 5 mg benztropine (COGENTIN) injection 1 mg 1 mg, IM, EVERY 12 HOURS PRN, Starting on Sun06/27/22 at 0353, Until Sun06/30/22 at 1905, Other (See Comment), EPS Symptoms: dystonia, parkinsonisms, or tardive dyskinesia, Routine benztropine (COGENTIN) tablet 1 mg 1 mg, Oral, EVERY 12 HOURS PRN, Starting on Sun06/27/22 at 0353, Until Sun06/30/22 at 1905, Other (See Comment), EPS Symptoms: dystonia, parkinsonisms, or tardive dyskinesia, Routine diphenhydrAMINE (BENADRYL) injection 50 mg 50 mg, IM, EVERY 2 HOURS PRN, 2 doses, Starting on Sun06/27/22 at 0353, Until Sun06/30/22 at 1905, Other (See Comment), extrapyramidal symptom prevention, Routine gabapentin (NEURONTIN) capsule 300 mg 300 mg, Oral, EVERY 8 HOURS, First dose on Sun06/27/22 at 1300, Until Discontinued, Routine, Previous Med: gabapentin (NEURONTIN) 300 mg capsule - Orig Sig - TAKE ONE CAPSULE BY MOUTH THREE TIMES DAILY Given 06/30/2022 3:16 PM DEVELOPMENT TEAM LEAD 300 mg Given 06/30/2022 5:34 AM DEVELOPMENT TEAM LEAD 300 mg Given 06/29/2022 8:29 PM DEVELOPMENT TEAM LEAD 300 mg haloperidol lactate (HALDOL) injection 5 mg 5 mg, IM, EVERY 2 HOURS PRN, 2 doses, Starting on Sun06/27/22 at 0353, Until Sun06/30/22 at 1905, Other (See Comment), agitated psychosis, Routine hydrOXYzine HCL (ATARAX) tablet 50 mg 50 mg, Oral, EVERY 1 HOUR PRN, 2 doses, Starting on Sun06/27/22 at 0353, Until Sun06/30/22 at 1905, Anxiety, Routine ibuprofen (MOTRIN) tablet 400 mg 400 mg, Oral, EVERY 6 HOURS PRN, Starting on Sun06/27/22 at 0353, Until Sun06/30/22 at 1905, Other (See Comment), See Admin Instructions, Routine loperamide (IMODIUM) capsule 2 mg 2 mg, Oral, EVERY 4 HOURS PRN, Starting on Sun06/27/22 at 0353, Until Sun06/30/22 at 1905, Diarrhea/Loose Stools, Routine mirtazapine (REMERON) tablet 22.5 mg 22.5 mg, Oral, DAILY AT BEDTIME, First dose on Sun06/27/22 at 2100, Until Discontinued, Routine Given 06/27/2022 9:52 PM DEVELOPMENT TEAM LEAD 22.5 mg mirtazapine (REMERON) tablet 30 mg 30 mg, Oral, DAILY AT BEDTIME, First dose (after last modification) on Sun06/28/22 at 2100, Until Discontinued, Routine Given 06/28/2022 8:26 PM DEVELOPMENT TEAM LEAD 30 mg mirtazapine (REMERON) tablet 45 mg 45 mg, Oral, DAILY AT BEDTIME, First dose (after last modification) on Sun06/29/22 at 2100, Until Discontinued, Routine Given 06/29/2022 8:29 PM DEVELOPMENT TEAM LEAD 45 mg polyethylene glycol (MIRALAX) packet 17 Gram 17 Gram, Oral, EVERY 12 HOURS PRN, Starting on Sun06/27/22 at 0353, Until Sun06/30/22 at 1905, Constipation, or over 48 hours since last BM, Routine promethazine (PHENERGAN) tablet 25 mg 25 mg, Oral, EVERY 4 HOURS PRN, Starting on Sun06/27/22 at 0353, Until Sun06/30/22 at 1905, Nausea, Routine traZODone (DESYREL) tablet 100 mg 100 mg, Oral, NIGHTLY PRN, Starting on Sun06/27/22 at 0353, Until Sun06/30/22 at 1905, Insomnia, Routine Given 06/29/2022 8:29 PM DEVELOPMENT TEAM LEAD 100 mg documented in this encounter Active and Recently Administered Medications Times are shown in DEVELOPMENT TEAM LEAD. Scheduled Medication Order 06/28/2022 06/29/2022 06/30/2022 ARIPiprazole (ABILIFY) tablet 2 mg (CANCELED) 2 mg, Oral, DAILY, First dose on Sun06/27/22 at 1200, Until Discontinued, Routine 0816 (Given - Provider: Wesley Menjivar RN) ARIPiprazole (ABILIFY) tablet 5 mg 5 mg, Oral, DAILY, First dose (after last modification) on Sun06/29/22 at 0900, Until Discontinued, Routine 0937 (Given - Provider: Mingo Roger, RN) 08 (Given - Provider: Mingo Roger RN) gabapentin (NEURONTIN) capsule 300 mg 300 mg, Oral, EVERY 8 HOURS, First dose on Sun06/27/22 at 1300, Until Discontinued, Routine, Previous Med: gabapentin (NEURONTIN) 300 mg capsule - Orig Sig - TAKE ONE CAPSULE BY MOUTH THREE TIMES DAILY 0526 (Given - Provider: Mahsa Mansfield RN)130 (Given - Provider: Wesley Menjivar RN)2025 (Given - Provider: Bel Segura, VICTOR MANUEL) 0500 (Due)1305 (Given - Provider: Mingo Roger RN)2028 (Given - Provider: Mikey Nolan, VICTOR MANUEL) 0534 (Given - Provider: Mikey Nolan, VICTOR MANUEL)151 (Given - Provider: Mingo Roger, VICTOR MANUEL) mirtazapine (REMERON) tablet 30 mg (CANCELED) 30 mg, Oral, DAILY AT BEDTIME, First dose (after last modification) on Sun06/28/22 at 2100, Until Discontinued, Routine 2025 (Given - Provider: Bel Segura, VICTOR MANUEL) mirtazapine (REMERON) tablet 45 mg 45 mg, Oral, DAILY AT BEDTIME, First dose (after last modification) on Sun06/29/22 at 2100, Until Discontinued, Routine 2028 (Given - Provider: Mikey Nolan RN) PRN Medication Order 06/28/2022 06/29/2022 06/30/2022 acetaminophen (TYLENOL) tablet 650 mg 650 mg, Oral, EVERY 4 HOURS PRN, Starting on Sun06/27/22 at 0353, Until Sun06/30/22 at 1905, Other (See Comment), See Admin Instructions, Routine aluminum - magnesium - simethicone (MYLANTA) 200-200-20 mg/5 mL oral suspension 30 mL 30 mL, Oral, EVERY 6 HOURS PRN, Starting on Sun06/27/22 at 0353, Until Sun06/30/22 at 1905, Other (See Comment), GI Upset, Routine benztropine (COGENTIN) injection 1 mg 1 mg, IM, EVERY 12 HOURS PRN, Starting on Sun06/27/22 at 0353, Until Sun06/30/22 at 1905, Other (See Comment), EPS Symptoms: dystonia, parkinsonisms, or tardive dyskinesia, Routine benztropine (COGENTIN) tablet 1 mg 1 mg, Oral, EVERY 12 HOURS PRN, Starting on Sun06/27/22 at 0353, Until Sun06/30/22 at 1905, Other (See Comment), EPS Symptoms: dystonia, parkinsonisms, or tardive dyskinesia, Routine diphenhydrAMINE (BENADRYL) injection 50 mg(Linked Group 1) 50 mg, IM, EVERY 2 HOURS PRN, 2 doses, Starting on Sun06/27/22 at 035, Until Sun06/30/22 at 1905, Other (See Comment), extrapyramidal symptom prevention, Routine haloperidol lactate (HALDOL) injection 5 mg(Linked Group 1) 5 mg, IM, EVERY 2 HOURS PRN, 2 doses, Starting on Sun06/27/22 at 0353, Until Sun06/30/22 at 1905, Other (See Comment), agitated psychosis, Routine hydrOXYzine HCL (ATARAX) tablet 50 mg 50 mg, Oral, EVERY 1 HOUR PRN, 2 doses, Starting on Sun06/27/22 at 035, Until Sun06/30/22 at 1905, Anxiety, Routine ibuprofen (MOTRIN) tablet 400 mg 400 mg, Oral, EVERY 6 HOURS PRN, Starting on Sun06/27/22 at 035, Until Sun06/30/22 at 1905, Other (See Comment), See Admin Instructions, Routine loperamide (IMODIUM) capsule 2 mg 2 mg, Oral, EVERY 4 HOURS PRN, Starting on Sun06/27/22 at 0353, Until Sun06/30/22 at 1905, Diarrhea/Loose Stools, Routine polyethylene glycol (MIRALAX) packet 17 Gram 17 Gram, Oral, EVERY 12 HOURS PRN, Starting on Sun06/27/22 at 0353, Until Sun06/30/22 at 1905, Constipation, or over 48 hours since last BM, Routine promethazine (PHENERGAN) tablet 25 mg 25 mg, Oral, EVERY 4 HOURS PRN, Starting on Sun06/27/22 at 0353, Until Sun06/30/22 at 1905, Nausea, Routine traZODone (DESYREL) tablet 100 mg 100 mg, Oral, NIGHTLY PRN, Starting on Sun06/27/22 at 0353, Until Sun06/30/22 at 1905, Insomnia, Routine 2028 (Given - Provider: Mikey Nolan RN) Linked Groups Order Group 1: haloperidol lactate (HALDOL) injection 5 mgJump to med 5 mg, IM, EVERY 2 HOURS PRN, 2 doses, Starting on Sun06/27/22 at 0353, Until Sun06/30/22 at 1905, Other (See Comment), agitated psychosis, Routine And diphenhydrAMINE (BENADRYL) injection 50 mgJump to med 50 mg, IM, EVERY 2 HOURS PRN, 2 doses, Starting on Sun06/27/22 at 0353, Until Sun06/30/22 at 1905, Other (See Comment), extrapyramidal symptom prevention, Routine documented in this encounter
--- OUTSIDE RECORDS SUMMARY | 2024-08-10 03:48 | XMS_ITS | Encounter Summary ---
Author Organization [facility] Address [address] [place] [address] Care Team Providers Care Mold Washer Name Role Phone Unavailable Primary Care Provider Unavailabl e Reason for Visit * Reason Comments Sore Throat Chest Tightness * Auth/Cert Specialty Diagnoses / Procedures Referred By Ara cazares Referred To Contact Urgent Care [address] [place] [phone] Phone: tel: fax: Referral ID Status Reason Start Date Expiration Date Visits Re quested Visits Authorized [id number] 1 1 Encounter Details Date Type Department Care Team (Late st Contact Info) Description 05/05/2020 8:35 AM CDT Office Visit [facility] [address] [place] [address] [place] [phone] Karen Mitchell MD [address] [place] [address] Karen Szymanski [address] [address] Exposure to COVID-19 virus (Primary Dx); Sore throat Social History Tobacco Use Types Packs/Day Years Used Date Smoking Tobacco: Never Smokeless Tobacco: Never Alcohol Use Standard Drinks/Week Comments Never 0 (1 standard drink = 0.6 oz pur e alcohol) Sex and Gender Information Value Date Recorded Sex Assigned at Not on file 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 Yes 05/05/2020 8:33 AM CDT documented as of this encounter Last Filed Vital Signs Vital Sign Reading Time Taken Comments Blood Pressure 149/80 05/05/2020 8:49 AM CDT Pulse 59 05/05/2020 8:49 AM CDT Temperature 37.2 ??C (99 ??F) 05/05/2020 8:49 AM CDT Respiratory Rate 16 05/05/2020 8:49 AM CDT Oxygen Saturation 100% 05/05/2020 8:49 AM CDT Inhaled Oxygen Concentration - - Weight - - Height - - Body Mass Index - - documented in this encounter Progress Notes * Karen Szymanski, NIKITA - 05/05/2020 10:26 AM CDT HISTORY OF PRESENT ILLNESS Phil Chase Jr., a 24 y.o. male presents with a Chief Complaint of Sore Throat and Chest Tightness Subjective 24 year old male with h/o HIV c/o sore throat (scratchy) for 2 days. Patient states his roommate's boyfriend is positive for COVID-19. Patient denies fever, chills, cough, SOB. Denies GI symptoms. Not taking any OTC medications. Covid-19 Symptom Assessment: Fever: no Chills: no New Cough: no Shortness of Breath: no Sore Throat: yes Headache: no Muscle Aches: no Diarrhea: no Covid-19 Exposure Risk Assessment: Known Covid-19 exposure within 14 days: yes Health care worker: no Institutional home setting (SNF, dorm, fpc, chcf): no Have you traveled internationally in the last month? no If yes, location? Have you traveled within the [place] in the last month? no If yes, location? Covid-19 Medical Risk Assessment: Age > 60: no Cardiovascular disease: no Hypertension: no Diabetes Mellitus: no Chronic Lung Disease: no Cirrhosis: no ESRD: no : no Immunocompromised: yes The patient's medications, allergies, past medical history, past surgical history, family history, and social history are all reviewed and updated at the time of today's visit. REVIEW OF SYSTEMS Review of Systems Constitutional: Negative for chills and fever. HENT: Positive for congestion and sore throat (scratchy sensation). Negative for ear pain, postnasal drip, rhinorrhea and sneezing. Respiratory: Negative for cough, chest tightness and shortness of breath. Cardiovascular: Negative for chest pain. Gastrointestinal: Negative for diarrhea, nausea and vomiting. Musculoskeletal: Negative for myalgias. Skin: Negative for rash. Allergic/Immunologic: Positive for immunocompromised state (HIV). Neurological: Negative for dizziness and headaches. Objective PHYSICAL EXAM BP (!) 149/80 Pulse (!) 59 Temp 99 ??F (37.2 ??C) Resp 16 SpO2 100% Physical Exam Vitals signs and nursing note reviewed. Constitutional: General: He is not in acute distress. HENT: Head: Normocephalic and atraumatic. Right Ear: Tympanic membrane normal. Left Ear: Tympanic membrane normal. Mouth/Throat: Mouth: Mucous membranes are moist. Pharynx: Posterior oropharyngeal erythema present. No uvula swelling. Neck: Musculoskeletal: Neck supple. Cardiovascular: Rate and Rhythm: Normal rate and regular rhythm. Pulmonary: Effort: Pulmonary effort is normal. Breath sounds: Normal breath sounds. Lymphadenopathy: Cervical: No cervical adenopathy. Skin: General: Skin is warm and dry. Capillary Refill: Capillary refill takes less than 2 seconds. Neurological: Mental Status: He is alert and oriented to person, place, and time. Procedures Assessment Results for orders placed or performed in visit on 05/05/20 (from the past 24 hour(s)) POC RAPID STREP A Result Value Ref Range RAPID STREP Negative Negative STARCH MANGLE TENDER NAME BRANDEE ALEGRE ASSESSMENT and PLAN: ICD-10-CM ICD-9-CM 1. Exposure to COVID-19 virus Z20.828 V01.79 2. Sore throat J02.9 462 2019 NOVEL CORONAVIRUS (COVID-19) PCR DETECTION 2019 NOVEL CORONAVIRUS (COVID-19) PCR DETECTION THROAT CULTURE THROAT CULTURE Rapid strep negative. Culture sent. Rapid Strep test: negative ?? For a sore throat, try: Warm salt water gargles. Warm liquids such as hot tea with honey or lemon Throat lozenges or throat sprays Increase fluids, Tylenol / Ibuprofen as needed. Ice chips. I discussed Phil's current symptoms within the context of the ongoing COVID- 19 pandemic: - Based on exposures, clinical history & physical examination, I have medium clinical suspicionfor COVID-19 related illness. - Phil does meet current criteria for SARS-CoV2 testing. - Reviewed epidemiologic features of COVID-19 including ability to spread virus while asymptomatic,incubation period (2-14 days, avg of 4-5 days) & contagion rate of 2-3 cases per exposure. - Reviewed clinical features of COVID-19 including rates of asymptomatic/mild disease (~80% in adults, ~94% in peds), variable presentation/course in children, typical course in adults (fever, myalgia, dry cough with development of respiratory distress at ~7 days of illness), higher risk of morbidit y/mortality (age>60, heart dz, lung dz, immune dz). - Based on my level of clinical suspicion for COVID-19, I recommended that the family follow the COVID-19 home isolation guidelines (provided on AVS) in addition to standard social distancing measures. If any severe worsening (such as throat swelling, difficulty breathing), go to the ER. Discharge instructions reviewed. All questions answered. Pt demonstrates understanding. Please see AVS for further details. * Brandee Santana LPN - 05/05/2020 8:50 AM CDT Phil Chase Jr. is a 24 y.o. male arrived to clinic c/o a sore throat and chest tightness for2 days. COVID-19 TRIAGE Are you having any of these symptoms (new or worsening): (check the box for any yes ) [] Fever of 100.4 or greater [] Cough [] Shortness of breath or difficulty breathing [] Chills [] Muscle pain [] Loss of smell or taste [] Vomiting [] Diarrhea [] Fatigue [] Runny nose [x] Sore throat If any checked, date of onset of first symptom(s)? Have you been in contact with a suspected or lab-confirmed coronavirus patient within the last two weeks? [] Yes [x] No Have you had a COVID-19 viral test in the last 14 days? [] Yes [x] No If yes: [] Positive [] Negative [] Pending If yes, date of test: documented in this encounter Miscellaneous Notes * Result Encounter Note - Mary Case MD - 05/07/2020 9:57 AM CDT Please let the patient know that his covid is negative. ?? Patient contacted to make them aware that their Covid 19 test was negative. ?? Please let him know that a single negative test does not rule out the possibility of COVID 19, given that false negatives are possible. ??False negative tests are more common early after exposure before symptoms develop. ?? Therefore, if tested due to symptoms - unless another explanation for the patient's symptoms is assured, continued to recommend isolation from all of the members of their family and pets out of an abundance of caution. ??Recommended continuing these self-isolation measures until symptoms improving AND the patient is fever free for 24 hours without antipyretics. ?? If tested due to exposure without symptoms, discussed that a single negative test result does not allow the patient to break the mandated quarantine from 2 weeks of last known exposure. ? * Result Encounter Note - Mary Case MD - 05/07/2020 9:54 AM CDT Please let the patient know that his covid is negative. Patient contacted to make them aware that their Covid 19 test was negative. ?? Please let him know that a single negative test does not rule out the possibility of COVID 19, given that false negatives are possible. False negative tests are more common early after exposure before symptoms develop. Therefore, if tested due to symptoms - unless another explanation for the patient's symptoms is assured, continued to recommend isolation from all of the members of their family and pets out of an abundance of caution. ??Recommended continuing these self-isolation measures until symptoms improving AND the patient is fever free for 24 hours without antipyretics. If tested due to exposure without symptoms, discussed that a single negative test result does not allow the patient to break the mandated quarantine from 2 weeks of last known exposure. * Patient Instructions - Karen Szymanski, INTEGRATION ASSISTANT - 05/05/2020 8:58 AM CDT Rapid Strep test: negative ?? For a sore throat, try: Warm salt water gargles. Warm liquids such as hot tea with honey or lemon Throat lozenges or throat sprays Increase fluids, Tylenol / Ibuprofen as needed. Ice chips. ?? A Strep throat swab was done and came back negative in the office, it will be sent for a backup culture. This takes several days to come back, and if positive we will contact you. ?? Recheck with the PCP if 24-48 hours in no better or sooner if worse. ?? If any severe worsening (such as throat swelling, difficulty breathing), go to the ER. Please follow with your primary care physician Rose Mary Wallace MD in 24 to 48 hours if no better. If your symptoms worsen please go to the local ER. You may have been referred to [facility] for follow up also. If you do not have a primary care doctor [facility] offers free referral service by calling [phone], , or toll free . This information can also be found at [email or web address]. If you had a test ordered you can schedule by calling Central Test [phone] If you have been referred you can call Central Referral: [phone] If you are female and on hormone based control there is a slight increase in risk with the use of antibiotics. You should back up your OCP with condom or other method during this (or any) cycle during which she is taking antibiotics. Thank you for choosing [facility]: [facility] Location [address] [place] [address] [place] [address] [facility] Location [address] [facility] [address] [place] [address] [place] [address] IMPORTANT: You were examined and treated today on an urgent basis. This was not a substitute for, nor an effort to provide, complete and ongoing medical care. On arrival to [facility] you may have reported taking home medications that will be listed on your After Visit Summary. If applicable this regimen is not being changed, except as noted and discussed with you. You should follow up with your primary care physician for ongoing medicationmanagement. This AVS (after visit summary) is a printed copy of the form that is part of your permanent electronic medical record. By accepting this form you acknowledge that your tests, diagnosis, treatment plan, and follow up care has been discussed with you by appropriate medical personnel and you understand and agree with them. Thank-you again for choosing [facility]. documented in this encounter Plan of Treatment Not on file documented as of this encounter Procedures Procedure Name Priority Date/Time Associated Diagnosis Comments THROAT CULTURE Routine 05/05/2020 9:00 AM CDT Sore throat 2019 NOVEL CORONAVIRUS (COVID-19) PCR DETECTION Routine 05/05/2020 8:52 AM CDT Sore throat POC RAPID STREP A Routine 05/05/2020 8:5 0 AM CDT documented in this encounter Results * THROAT CULTURE (05/05/2020 9:00 AM CDT) CULTURE No Streptococcus Group A, C, or G isolated 05/07/2020 8:04 AM CDT [facility] Upper Respiratory SPECIMEN FROM THROAT / Unknown Collection / Unknown 05/05/2020 9:00 AM CDT 05/05/2020 10:41 AM CDT Karen SHELTON MICROBIOLOGY - GENERAL ORDERABLES Final Result [facility] CLIA# [id number] [address] [place] [address] * 2019 NOVEL CORONAVIRUS (COVID-19) PCR DETECTION (05/05/2020 8:52 AM CDT) COVID-19 PCR NOT DETECTED NOT DETECTED 05/07/2020 7:54 AM CDT [facility] Comment: A Not Detected (negative) test result for this test means that SARS- CoV-2 RNA was not present in the specimen above the limit of detection. A negative result does not rule out the possibility of COVID-19 and should not be used as the sole basis for treatment or patient management decisions. ??If COVID-19 is still suspected, based on exposure history together with other clinical findings, re-testing should be considered in consultation with public health authorities. Laboratory test results should always be considered in the context of clinical observations and epidemiological data in making a final diagnosis and patient management decisions. Please review the Fact Sheets and FDA authorized labeling available for health care providers and patients using the following websites: [email or web address]/home/Covid-19/HCP/NAAT/fact-sheet2 https://www.[employer]/home/Covid-19/Patients/NAAT/ fact-sheet2 This test has been authorized by the FDA under an Emergency Use Authorization (EUA) for use by authorized laboratories. Due to the current public health emergency, [facility] is receiving a high volume of samples from a wide variety of swabs and media for COVID-19 testing. In order to serve patients during this public health crisis, samples from appropriate clinical sources are being tested. Negative test results derived from specimens received in non-commercially manufactured viral collection and transport media, or in media and sample collection kits not yet authorized by FDA for COVID-19 testing should be cautiously evaluated and the patient potentially subjected to extra precautions such as additional clinical monitoring, including collection of an additional specimen. Methodology: ??Nucleic Acid Amplification Test (NAAT) includes RT-PCR or TMA ?? Additional information about COVID-19 can be found at the [facility] website: www.[employer].com/Covid19. Upper Respiratory ENTIRE NASOPHARYNX / Unknown Collection / Unknown 05/05/2020 8:52 AM CDT 05/05/2020 10:41 AM CDT Narrative [facility] - 05/07/2020 7:54 AM CDT Performing Organization Information: ?Site ID: [address] ?Name: [facility] ?Address: [address] [place] [address] ?Director: Henrique Gonzalez D.O., MPH us Karen Mitchell MD MICROBIOLOGY - GENERAL ORD ERABLES Final Result Performing Organization Address City/[facility] Co de Phone Number [facility] [phone] * POC RAPID STREP A (05/05/2020 8:50 AM CDT) [facility] Signature RAPID STREP Negative Negative 05/05/2020 8:50 AM CDT [facility] Comment:Group A Strep Cultur e ([id number]) is recommended for negative Strep Screen results. STARCH MANGLE TENDER NAME POC BRANDEE ALEGRE 05/05/2020 8:50 AM CDT [facility] Upper Respiratory SPECIMEN FROM THROAT / Unknown 05/05/2020 8:50 AM CDT 05/05/2020 8:56 AM CDT us Karen Mitchell MD POINT OF CARE TESTING Antonina l Result Performing Organization Address [facility] Co de Phone Number [facility] CLIA# [id number] [address] , [address] [address] documented in this encounter Visit Diagnoses Diagnosis Exposure to COVID-19 virus- Primary Sore throat Acute pharyngitis documented in this encounter Additional Health Concerns Infection Onset Date Last Indicated Resolved Time R/O COVID-19 05/05/2020 05/05/2020 05/07/2020 8:02 AM CDT documented as of this encounter
--- OUTSIDE RECORDS SUMMARY | 2024-08-10 03:48 | XMS_ITS | Encounter Summary ---
Author Organization [facility] Address [address] [place] [address] Care Team Providers Care Mangle Roller Name Role Phone Unavailable Primary Care Provider Unavailabl e Reason for Visit * Reason Onset Date Comments Follow Up 09/15/2019 Encounter Details Date Type Department Care Team (Late st Contact Info) Description 09/15/2019 Telephone [facility] [address] 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 Per Alvaro, pt needs ride to his MD appt on 09/19/2019 with [facility], their agency can only provide buspasses. Pt is on a walker, and needs door to door transportation. Per pt, he has no friends/family to provide a ride and cannot afford a cab. Discussed with Dr. Wallace, who approved 1x cab for 09/16/2019 appt. Called pt at [phone], confirmed 09/16 7:45a pickle cutter for 8:30a appt with Dr. Santamaria. Will call left open for pt to request return trip. Faxed cab vouchers for same to [facility] , confirmation rec'd. Same scanned into chart. Also discussed need for Dr. Ac appt, I had attempted to reschedule for pt for 09/17 this week but pt states he may be able to get a ride from a family member or friend for later in the week. He will check with his family and will know more 09/16/[address] Ac's office, [facility] requesting cancellation of pt's 09/17/2019 appt due to lack of transportation. Explained SW and pt will call 09/16/2019 to try to reschedule. SW to also assist pt with [employer] application during appt on 09/16/2019. DATION ANALYST documented in this encounter Plan of Treatment Not on file documented as of this encounter Visit Diagnoses Not on filedocumented in this encounter
--- OUTSIDE RECORDS SUMMARY | 2024-08-10 03:48 | XMS_ITS | Encounter Summary ---
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 Take 15 mg by mouth daily at bedtime.) 30 Tablet 0 doxepin (SINEquan) 25 mg capsule Take 1 Capsule (25 mg) by mouth nightly as needed for Other (See Comment) (Insomnia). 30 Capsule 0 hydrOXYzine HCL (ATARAX) 50 mg tablet Take 1 Tablet (50 mg) by mouth every 6 hours as needed for Anxiety. (Patient taking differently: Take 25 mg by mouth every 6 hours as needed for Anxiety.) 45 Tablet 0 cawfdgeybdv-uphjjuhzcuhgf-zxcehaaos alafenam (Biktarvy) 50-200-25 mg Tablet Take 1 Tablet by mouth daily. 30 Tablet 0 sertraline (ZOLOFT) 100 mg tablet Take 1 Tablet (100 mg) by mouth daily. 30 Tablet 0 Allergies: No Known Allergies Social History: Social History Tobacco Use Smoking status: Every Day Current packs/day: 0.25 Types: Cigarettes Smokeless tobacco: Never Vaping Use Vaping status: Never Used Substance Use Topics Alcohol use: Not Currently Drug use: Yes Types: Methamphetamines Family History: Family History Problem Relation Name Age of Onset Healthy Father Healthy Mother Healthy Sister Healthy Brother Diabetes Maternal Grandmother Diabetes Maternal Grandfather Review of Systems Review of Systems Constitutional: Negative for activity change, appetite change, chills, diaphoresis, fatigue and fever. HENT: Negative for rhinorrhea and sore throat. Eyes: Negative for visual disturbance. Respiratory: Negative for cough, choking, chest tightness and shortness of breath. Cardiovascular: Negative for chest pain and palpitations. Gastrointestinal: Negative for abdominal distention and abdominal pain. Genitourinary: Negative for difficulty urinating, dysuria, flank pain and frequency. Musculoskeletal: Negative for arthralgias, back pain, gait problem and joint swelling. Skin: Negative for color change. Allergic/Immunologic: Negative for food allergies. Neurological: Negative for dizziness, seizures and headaches. Psychiatric/Behavioral: Positive for suicidal ideas. Negative for agitation and behavioral problems. Physical Exam BP: (!) 159/108 (01/01/24 1342), Heart Rate: 76 bpm (01/01/24 134), Resp: 16 (01/01/24 134), Temp: 97.8 ??F (36.6 ??C) (01/01/24 134), Temp src: Temporal (01/01/241341), SpO2: 100 % (01/01/24 134), Height: 6' (182.9 cm) (01/01/24 134), Weight: 74.8 kg (165 lb) (01/01/24 134), BMI (Calculated): 22.37 (01/01/24 134) Physical Exam Constitutional: General: He is not in acute distress. Appearance: He is not diaphoretic. HENT: Head: Normocephalic and atraumatic. Right Ear: External ear normal. Left Ear: External ear normal. Eyes: Pupils: Pupils are equal, round, and [...] alert. Psychiatric: Mood and Affect: Mood normal. Pulse Oximetry Interpretation: Saturation: 100% on room air Interpretation: no hypoxia Rhythm Strip Interpretation Sinus rhythm, no arrhythmia Ventricular Rate: 86 Initial Electrocardiogram (independent interpretation by Orestes De La Vega MD): Rate/rhythm: NSR, 69 BPM QTc: 409 Conduction/ischemia: normal [place]: Normal Intervals: Normal Comparison: no previous Medical Decision Making and ED Course Medical Decision Making: Summary: 28M, here in overdose. D/w poison control, the meds should be at their peak. Coingestants negative. He is well appearing. Sent to [facility], admitted to [facility] from there Differential diagnosis includes, but is not limited to, suicide attempt versus sexually transmitteddisease vs other. By virtue of history and physical, some of these diagnoses can be excluded. Imaging was interpreted by me and notable for n/a. Non-ED notes reviewed: 12/23/2023 ER visit at [facility] for intentional OD. Additional information obtained from independent historian, None. The following social determinants of health potentially complicated the patient???s course and wereconsidered in my plan of care: Food insecurity, Housing/Living situation, Financial access to medical care / no insurance / self pay, Transportation needs, and Safety at home ED Course as of 01/03/24 2240 Tue Jan 01, 2024 1416 Patient seen by ED physician at bedside. History obtained and physical exam performed. Updatedthe patient on the expected course of treatment. They are agreeable. [KK] 1428 I discussed with Poison control, all pertinent aspects of the case including HPI details, physical exam findings, testing completed, medications given, the patient's current condition. They recommend supportive care. [KK] 1950 Spoke with psychiatric caseworker intake, who evaluated the patient in the ED. Dr. Dudley, psychiatrist, recommends admission for further mental health evaluation. [KK] ED Course User Index [KK] Paul Dhillon Scribe Procedure: none Final Diagnoses: Final diagnoses: [F33.2] Severe recurrent major depression without psychotic features (Primary) Dispo: admitted Critical care provided: none Studies and Interpretation Imaging (pertinent imaging was independently reviewed by Orestes De La Vega MD): No orders to display Lab: (pertinent labs reviewed by Orestes De La Vega MD), Significant for: Labs Reviewed CBC WITH DIFFERENTIAL - Abnormal; Notable for the following components: Result Value WBC 3.6 (*) RBC 5.42 (*) MCV 81.1 (*) MCH 26.9 (*) RDW 15.5 (*) MPV 8.4 (*) All other components within normal limits COMPREHENSIVE METABOLIC PANEL - Abnormal; Notable for the following components: SODIUM 133 (*) BILIRUBIN TOTAL <0.2 (*) All other components within normal limits RPR - Abnormal; Notable for the following components: RPR Reactive (*) All other components within normal limits MANUAL DIFFERENTIAL - Abnormal; Notable for the following components: LYMPHOCYTES RELATIVE 33 (*) All other components within normal limits HEMOGLOBIN A1C - Abnormal; Notable for the following components: HEMOGLOBIN A1C 5.8 (*) All other components within normal limits Narrative: HGB A1C INTERPRETATION NORMAL: <5.7% PRE-DIABETES: 5.7 - 6.4% DIABETES: 6.5% OR GREATER LIPID PANEL - Abnormal; Notable for the following components: TRIGLYCERIDE 167 (*) All other components within normal limits Narrative: TOTAL CHOLESTEROL mg/dL Desirable <200 Borderline high 200-239 High >=240 TRIGLYCERIDES mg/dL Normal <150 Borderline high 150-199 High 200-499 Very high >=500 HDL CHOLESTEROL mg/dL Low <40 Normal 40-59 Desirable >=60 NON HDL CHOLESTEROL mg/dL Optimal <130 Near Optimal 130-159 Borderline High 160-189 Very High >=190 CALCULATED LDL mg/dL LDL <70, OPTIMAL if have Atherosclerotic cardiovascular disease (ASCVD) or intermediate or higher (>7.5%) 10 year risk of ASCVD including most adults with diabetes. LDL <100, Optimal in adult patients with low (<7.5%) 10 year ASCVD risk LDL 100-160, Suboptimal LDL >160, High LDL >190, Very high ATPIII Guidelines Reference Ranges for Lipid Panels (NCEP/AMA) . TRIGLYCERIDE - Abnormal; Notable for the following components: TRIGLYCERIDE 167 (*) All other components within normal limits Narrative: TRIGLYCERIDES mg/dL Normal < 150 Borderline High 150 - 199 High 200 - 499 Very High >= 500 Based on AHA/NCEP Guidelines. GC/CHLAMYDIA, RECTAL - Normal Narrative: Results should not be used for the evaluation of suspected sexual abuse or for other medico-legal indications. The only legally accepted results are from culture. Results cannot be used to assess therapeutic success or failure since nucleic acids may persist following antimicrobial therapy. ACETAMINOPHEN LEVEL - Normal SALICYLATE LEVEL - Normal DRUG SCREEN, URINE - Normal Narrative: This test is a qualitative screen. The presumptive positive results should not be used for legal purposes. If confirmation of results is desired, the lab must be contacted without delay. Drug Ref. Range Screening Threshold Amphetamines Negative 500 ng/mL Barbiturates Negative 200 ng/mL Benzodiazepines Negative 100 ng/mL Cannabinoids Negative 50 ng/mL Cocaine Negative 150 ng/mL Methadone Negative 300 ng/mL Opiates Negative 300 ng/mL Oxycodone Negative 100 ng/mL Phencyclidine Negative 25 ng/mL Fentanyl Negative 5 ng/mL TSH - Normal URINALYSIS WITH REFLEX MICROSCOPIC - Normal ETHANOL LEVEL TREPONEMA PALLIDUM PARTICLE AGGLUT This note is prepared by Paul Dhillon acting as a scribe for August De La Vega MD. The scribe's documentation has been prepared under my direction and personally reviewed by me in its entirety. I confirm that the note above accurately reflects all work, treatment, procedures, and medical decision making performed by me. Despite this, dictation software may have been utilized, andtherefore errors or substitutions may occur. Note: This H+P was created with the aid of dictation software, thus there may be some word substitutions or errors. documented in this encounter Miscellaneous Notes * Care Plan - Mishel Solomon MSW - 01/07/2024 11:18 AM CDT AVTAR called [facility] to notify of Pt's discharge today and to discuss d/c time [phone]. No answer. Left VM. Will follow up. AVTAR confirmed with [facility] [phone] that Pt will return to the sober living home today. Address confirmed as [address] [place] [id number]. AVTAR met 1:1 with Pt on the unit to go over discharge instructions and safety plan. Pt agreeable to following up with [facility] and returning to [facility]. He denies SI/HI to this sign writer hand. Agreeable to Pt returning by cab. SW notified [facility] of Pt's discharge. [facility] CL [facility] [phone] will follow up with Pt. * Care Plan - Jean-Paul Sloan RN - 01/07/2024 11:18 AM CDT DISCHARGE NOTE The following items have been completed prior to discharge: [x]Discharge follow up plan completed by social work, and present in AVS. [x]Specific follow up appointment made by social work, and contact information in AVS. If the above 2 points are not marked as complete, the following action has been completed. []social worker health services unavailable to see patient prior to discharge, clinical ice platform supervisor/charge nurse notified to ensure discharge plan [...] and he is discharged with belongings to home via auto. [] Patient is being discharged to an inpatient facility. Report has been given to accepting facility. All questions have been answered regarding patient care. Phil escorted off unit on (Date)01/07/24 at (Time)1255 * Care Plan - Jean-Paul Sloan RN - 01/07/2024 11:16 AM CDT Shift Narrative: Patient is calm and cooperative, rates anxiety 6/10, depression 6/10, denies SI, HI and A/VH at this time. Patient is encouraged to shower and brush his teeth. Hygiene supplies offered. Patient is encouraged to attend groups and meals in the cafeteria. Patient safety rounds maintained every 15 minutes. Precautions Behavioral Health Precautions: Suicide precautions (01/07/24999) Summary of Phil's problems and interventions: (See flowsheets for more detailed summary) Plan of Care Reviewed with: patient;healthcare team (01/07/24999) Patient's Individualized Goal: not be suicidal (01/06/242018) Phil's response to interventions this shift: Accepting Phil's perception of symptoms and progress toward goals: improved Discharge follow up plan reviewed/discussed during the 1:1 shift interview: yes Does the patient have a legal guardian? NO If yes, describe: Does the patient have a Power of Manager Relocation? No If yes, describe: Legal Status: Voluntary MENTAL HEALTH ASSESSMENT: Behavior: Calm;Cooperative (01/07/24999) Observed Emotional State: cooperative;combative (01/07/24999) Verbalized Emotional State: anxiety;depression (01/07/24999) Speech: poverty of content (01/07/24999) Thought Processes: Logical;Goal oriented (01/07/24999) Social Judgement: Difficulty in problem solving (01/07/24999) Appearance: Appears stated age (01/07/24999) Risk Assessment 1. Have you wished you were or wished you could go to sleep and not wake up?: No (01/07/24999) 2. Have you actually had any thoughts of killing yourself?: No (01/07/24999) 6. Have you ever done anything, started to do anything, or prepared to do anything to end your life?: No (01/07/24999) Suicide Risk and Interventions: Moderate (01/07/24999) Depressive Symptoms Symptoms: Change in energy level;Impaired concentration (01/07/24999) Describe: 12/30 (01/07/24999) Anxiety Symptoms Symptoms: Generalized (01/07/24999) Describe: 12/30 (01/07/24999) Manic Symptoms Symptoms: No problems reported or observed (01/07/24999) Describe: none (01/02/24820) Psychotic Symptoms Hallucination Type: No problems reported or observed (01/07/24999) Delusion Type: No problems reported or observed (01/07/24999) Homicidal Ideation Violence-Risk Towards Others In the past month have you had thoughts of harming another person?: No (01/07/24999) Broset Broset Violence Checklist Confusion - Appears obviously confused and disoriented. May be unaware of person, place, time.: No (01/07/24999) Irritability - Easily annoyed or angered. Unable to tolerate the presence of others.: No (01/07/24999) Boisterous - Behavior is overtly loud or noisy. For example slams doors, shouts out when talking etc.: No (01/07/24999) Verbal Threat - A verbal outburst which is more than just a raised voice and where there is a definite intent to intimidate or threaten another person. For example, verbal attacks, abuse, name-calling, verbally neutral comments uttered in a snarling aggressive manner.: No (01/07/24999) Physical Attacks - Where there is a definite intent to physically threaten another person. For example, the taking of an aggressive stance, the grabbing of another person???s clothing, the raising ofan arm or leg, making a fist or modeling a head-butt directed at another. : No (01/07/24999) Attacks on Objects - An attack directed at an object and not an individual. For example, the indiscriminant throwing of an object, banging or smashing windows, kicking, banging or head butting an object or the smashing of furniture. : No (01/07/24999) Total: 0 (01/07/24999) CHELE Behaviors Assessing Overt Behavior for CHELE: None noted (01/07/24999) Tank House Operator Communication Tank House Operator Name: not at this time Update provided: [] Yes [] No Summary of conversation: Any concerns (if yes, please explain): Voicemail left for respiratory care instructor: [] N/A [] No [] Yes: Date/Time Medical Issues/New Medication Teaching Phil was informed about benefits and any potential clinically significant side effects or other concerns regarding the administration of the medication he was given. See separate notes for any prn medications provided during shift. * Care Plan - Jean-Paul Sloan RN - 01/07/2024 11:15 AM CDT Problem: Suicide Risk/Attempt Goal: Chcf: Reduction of suicidal thoughts and absence of suicidal behavior throughout admission and establish a safety plan by discharge. 01/07/20241114 by Jean-Paul Sloan RN Outcome: Progressing 01/07/20241114 by Jean-Paul Sloan RN Outcome: Progressing Problem: Depressed Mood Goal: Aquatics Instructor: Demonstrates reduced symptoms of depression and improved level of functioning by discharge. 01/07/20241114 by Jean-Paul Sloan RN Outcome: Progressing 01/07/20241114 by Jean-Paul Sloan RN Outcome: Progressing Problem: Discharge Planning Goal: Identify discharge needs upon admission and through discharge Description: 01/07/20241114 by Jean-Paul Sloan RN Outcome: Progressing 01/07/20241114 by Jean-Paul Sloan RN Outcome: Progressing Problem: Anxiety Goal: Aquatics Instructor:Maintain anxiety at a functional level as evidenced by absence of disabling behaviors in response to stress by discharge. 01/07/20241114 by Jean-Paul Sloan RN Outcome: Progressing 01/07/20241114 by Jean-Paul Sloan RN Outcome: Progressing Problem: Cognitive/Perceptual/Neuro Goal: Achieve optimal cognitive/perceptual/neurological function by discharge or maintain baseline function 01/07/20241114 by Jean-Paul Sloan RN Outcome: Progressing 01/07/20241114 by Jean-Paul Sloan RN Outcome: Progressing Problem: Thought Process Alteration Goal: Chcf:Displays ability to differentiate between delusional thinking and reality by discharge. 01/07/20241114 by Jean-Paul Sloan RN Outcome: Progressing 01/07/20241114 by Jean-Paul Sloan RN Outcome: Progressing * Care Plan - Sadia Vicente RN - 01/06/2024 8:36 PM CDT Shift Narrative: Manuel has been isolative to his room for this shift. He was calm upon assessment. He is medication compliant. He was given trazodone per request. He denies HI/AVH. He endorses SI thoughts with no plan or intent, he endorses depression/anxiety. He contracts for safety. Precautions/Behavioral Health Precautions: Suicide precautions;Self mutilation precautions (falls) (01/06/242018) Summary of Phil's problems and interventions: (See flowsheets for more detailed summary) Plan of Care Reviewed with: patient (01/06/242018) Patient's Individualized Goal: not be suicidal (01/06/242018) Phil's response to interventions this shift: Accepting Phil's perception of symptoms and progress toward goals: improved Discharge follow up plan reviewed/discussed during the 1:1 shift interview: yes Does the patient have a legal guardian? No If yes, describe: Does the patient have a Power of Manager Relocation? No If yes, describe: Legal Status: Voluntary MENTAL HEALTH ASSESSMENT: Behavior: Calm;Cooperative;Isolative (01/06/242018) Observed Emotional State: accepting;calm;cooperative;withdrawn (01/06/242018) Verbalized Emotional State: anxiety;depression;withdrawn;hopefulness (01/06/242018) Speech: poverty of content (01/06/242018) Thought Processes: Logical;Goal oriented (01/06/242018) Social Judgement: Appropriate to situation (01/06/242018) Appearance: Appears stated age (01/06/242018) Risk Assessment 1. Have you wished you were or wished you could go to sleep and not wake up?: Yes (01/06/242018) 2. Have you actually had any thoughts of killing yourself?: Yes (01/06/242018) 6. Have you ever done anything, started to do anything, or prepared to do anything to end your life?: No (01/06/242018) Suicide Risk and Interventions: High (01/06/242018) Depressive Symptoms Symptoms: Change in energy level;Isolative;Loss of interest;Sleep disturbance (01/06/242018) Describe: 12/30 (01/06/24814) Anxiety Symptoms Symptoms: Generalized (01/06/242018) Describe: 03/01 (01/06/24814) Manic Symptoms Symptoms: No problems reported or observed (01/06/242018) Describe: none (01/02/24820) Psychotic Symptoms Hallucination Type: No problems reported or observed (01/06/242018) Delusion Type: No problems reported or observed (01/06/242018) Homicidal Ideation Violence-Risk Towards Others In the past month have you had thoughts of harming another person?: No (01/06/242018) Broset Broset Violence Checklist Confusion - Appears obviously confused and disoriented. May be unaware of person, place, time.: No (01/06/242018) Irritability - Easily annoyed or angered. Unable to tolerate the presence of others.: No (01/06/242018) Boisterous - Behavior is overtly loud or noisy. For example slams doors, shouts out when talking etc.: No (01/06/242018) Verbal Threat - A verbal outburst which is more than just a raised voice and where there is a definite intent to intimidate or threaten another person. For example, verbal attacks, abuse, name-calling, verbally neutral comments uttered in a snarling aggressive manner.: No (01/06/242018) Physical Attacks - Where there is a definite intent to physically threaten another person. For example, the taking of an aggressive stance, the grabbing of another person???s clothing, the raising ofan arm or leg, making a fist or modeling a head-butt directed at another. : No (01/06/242018) Attacks on Objects - An attack directed at an object and not an individual. For example, the indiscriminant throwing of an object, banging or smashing windows, kicking, banging or head butting an object or the smashing of furniture. : No (01/06/242018) Total: 0 (01/06/242018) CHELE Behaviors Assessing Overt Behavior for CHELE: None noted (01/06/242018) Medical Issues/New Medication Teaching Phil was informed about benefits and any potential clinically significant side effects or other concerns regarding the administration of the medication he was given. See separate notes for any prn medications provided during shift. Problem: Suicide Risk/Attempt Goal: Chcf: Reduction of suicidal thoughts and absence of suicidal behavior throughout admission and establish a safety plan by discharge. Outcome: Variance Problem: Depressed Mood Goal: Chcf: Demonstrates reduced symptoms of depression and improved level of functioning by discharge. Outcome: Variance Problem: Anxiety Goal: Chcf:Maintain anxiety at a functional level as evidenced by absence of disabling behaviors in response to stress by discharge. Outcome: Variance * Care Plan - Sadia Vicente RN - 01/06/2024 8:19 PM CDT During this shift, Phil was given the prn medication Trazodone for insomnia as demonstrated by the following behavior: restlessness and per patient request. (See MAR for administration time.) Approximately 1 hour after medication administration, Phil appeared or reported the following: patient resting in bed with eyes closed. * Care Plan - Laly Leal RN - 01/06/2024 10:27 AM CDT 0819:During this shift, Phil was given the prn medication Ibuprofen for pain, as demonstrated bythe following behavior: rates pain to ankle as 8/10 (See MAR for administration time.) Approximately 1 hour after medication administration, Phil appeared or reported the following:sleeping 0819:During this shift, Phil was given the prn medication hydroxyzine for anxiety, as demonstrated by the following behavior: rates anxiety as 8/10 (See MAR for administration time.) Approximately1 hour after medication administration, Phil appeared or reported the following:sleeping 1804:During this shift, Phil was given the prn medication Hydroxyzine for anxiety, as demonstrated by the following behavior: rates anxiety as 6/10 (See MAR for administration time.) Approximately1 hour after medication administration, Phil appeared or reported the following: sleeping * Care Plan - Laly Leal RN - 01/06/2024 10:23 AM CDT Shift Narrative: Received Phil on unit in no obvious distress, complained of pain to right ankle, rates same as 810 and medicated as prescribed, see mar. Mood ???I am doing good?? with congruentaffect. Speech low tone clear and logical in content. Behavior cooperative. Rates his anxiety and depression as 8/10. Reports goal as no to be suicidal. Denies all forms of hallucinations, self-harm, suicidal thoughts, delusions, and homicidal ideations. Oriented. Contracts for safety. Reports last bowel movement was yesterday. Took and tolerated meals and medications willingly. Isolates to room most of the shift.. Monitored every fifteen minutes. Behavorial health precautions maintained. Vital signs in normal ranges. Precautions Behavioral Health Precautions: Suicide precautions (01/06/24814) Summary of Phil's problems and interventions: (See flowsheets for more detailed summary) Plan of Care Reviewed with: patient (01/06/24814) Patient's Individualized Goal: to not be suicidal (01/06/24814) Phil's response to interventions this shift: Accepting and Other Phil's perception of symptoms and progress toward goals: not changed Discharge follow up plan reviewed/discussed during the 1:1 shift interview: yes Does the patient have a legal guardian? No If yes, describe: Does the patient have a Power of Manager Relocation? No If yes, describe: Legal Status: Voluntary MENTAL HEALTH ASSESSMENT: Behavior: Calm;Cooperative (01/06/24814) Observed Emotional State: accepting;calm;cooperative (01/06/24814) Verbalized Emotional State: anxiety;depression;hopefulness (01/06/24814) Speech: poverty of content (01/06/24814) Thought Processes: Logical (01/06/24814) Social Judgement: Appropriate to situation (01/06/24814) Appearance: Appears stated age (01/06/24814) Risk Assessment 1. Have you wished you were or wished you could go to sleep and not wake up?: Yes (01/06/24814) 2. Have you actually had any thoughts of killing yourself?: Yes (01/06/24814) 6. Have you ever done anything, started to do anything, or prepared to do anything to end your life?: No (01/06/24814) Suicide Risk and Interventions: High (01/06/24814) Depressive Symptoms Symptoms: Isolative;Change in energy level (01/06/24814) Describe: 12/30 (01/06/24814) Anxiety Symptoms Symptoms: Generalized (01/06/24814) Describe: 03/01 (01/06/24814) Manic Symptoms Symptoms: No problems reported or observed (01/06/24814) Describe: none (01/02/24820) Psychotic Symptoms Hallucination Type: No problems reported or observed (01/06/24814) Delusion Type: No problems reported or observed (01/06/24814) Homicidal Ideation Violence-Risk Towards Others In the past month have you had thoughts of harming another person?: No (01/06/24814) [facility] Violence Checklist Confusion - Appears obviously confused and disoriented. May be unaware of person, place, time.: No (01/06/24814) Irritability - Easily annoyed or angered. Unable to tolerate the presence of others.: No (01/06/24814) Boisterous - Behavior is overtly loud or noisy. For example slams doors, shouts out when talking etc.: No (01/06/24814) Verbal Threat - A verbal outburst which is more than just a raised voice and where there is a definite intent to intimidate or threaten another person. For example, verbal attacks, abuse, name-calling, verbally neutral comments uttered in a snarling aggressive manner.: No (01/06/24814) Physical Attacks - Where there is a definite intent to physically threaten another person. For example, the taking of an aggressive stance, the grabbing of another person???s clothing, the raising ofan arm or leg, making a fist or modeling a head-butt directed at another. : No (01/06/24814) Attacks on Objects - An attack directed at an object and not an individual. For example, the indiscriminant throwing of an object, banging or smashing windows, kicking, banging or head butting an object or the smashing of furniture. : No (01/06/24814) Total: 0 (01/06/24814) CHELE Behaviors Assessing Overt Behavior for CHELE: None noted (01/06/24814) Tank House Operator Communication Tank House Operator Name: Update provided: [] Yes [] No Summary of conversation: Any concerns (if yes, please explain): Voicemail left for respiratory care instructor: [] N/A [] No [] Yes: Date/Time Medical Issues/New Medication Teaching Phil was informed about benefits and any potential clinically significant side effects or other concerns regarding the administration of the medication he was given. See separate notes for any prn medications provided during shift. * Care Plan - Laly Leal RN - 01/06/2024 10:22 AM CDT Problem: Suicide Risk/Attempt Goal: Chcf: Reduction of suicidal thoughts and absence of suicidal behavior throughout admission and establish a safety plan by discharge. Outcome: Progressing Problem: Depressed Mood Goal: Chcf: Demonstrates reduced symptoms of depression and improved level of functioning by discharge. Outcome: Variance Problem: Anxiety Goal: Aquatics Instructor:Maintain anxiety at a functional level as evidenced by absence of disabling behaviors in response to stress by discharge. Outcome: Variance Problem: Discharge Planning Goal: Identify discharge needs upon admission and through discharge Description: Outcome: Progressing Problem: Cognitive/Perceptual/Neuro Goal: Achieve optimal cognitive/perceptual/neurological function by discharge or maintain baseline function Outcome: Progressing * Care Plan - Sadia Vicente RN - 01/05/2024 10:54 PM CDT Shift Narrative: Phil has been isolative to his room. He is medication compliant. He was given trazodone per request. He denies SI/HI/AVH. He endorses depression/anxiety. Precautions/Behavioral Health Precautions: Suicide precautions;Self mutilation precautions (falls) (01/05/242038) Summary of Phil's problems and interventions: (See flowsheets for more detailed summary) Plan of Care Reviewed with: patient (01/05/242038) Patient's Individualized Goal: get stable (01/05/242038) Phil's response to interventions this shift: Accepting Phil's perception of symptoms and progress toward goals: improved Discharge follow up plan reviewed/discussed during the 1:1 shift interview: no Does the patient have a legal guardian? No If yes, describe: Does the patient have a Power of Manager Relocation? No If yes, describe: Legal Status: Voluntary MENTAL HEALTH ASSESSMENT: Behavior: Calm;Cooperative;Isolative (01/05/242038) Observed Emotional State: accepting;calm;cooperative (01/05/242038) Verbalized Emotional State: anxiety;depression;labile;flat effect;withdrawn (01/05/242038) Speech: poverty of content (01/05/242038) Thought Processes: Logical (01/05/242038) Social Judgement: Appropriate to situation (01/05/242038) Appearance: Appears stated age (01/05/242038) Risk Assessment 1. Have you wished you were or wished you could go to sleep and not wake up?: Yes (01/05/242038) 2. Have you actually had any thoughts of killing yourself?: No (01/05/242038) 6. Have you ever done anything, started to do anything, or prepared to do anything to end your life?: No (01/05/242038) Suicide Risk and Interventions: High (01/05/242038) Depressive Symptoms Symptoms: Isolative;Loss of interest;Sleep disturbance (01/05/242038) Describe: 10/30 (01/05/24 0820) Anxiety Symptoms Symptoms: Generalized (01/05/242038) Describe: 12/30 (01/05/24 08) Manic Symptoms Symptoms: No problems reported or observed (01/05/242038) Describe: none (01/02/24820) Psychotic Symptoms Hallucination Type: No problems reported or observed (01/05/242038) Delusion Type: No problems reported or observed (01/05/242038) Homicidal Ideation Violence-Risk Towards Others In the past month have you had thoughts of harming another person?: No (01/05/242038) Broset Broset Violence Checklist Confusion - Appears obviously confused and disoriented. May be unaware of person, place, time.: No (01/05/242038) Irritability - Easily annoyed or angered. Unable to tolerate the presence of others.: No (01/05/242038) Boisterous - Behavior is overtly loud or noisy. For example slams doors, shouts out when talking etc.: No (01/05/242038) Verbal Threat - A verbal outburst which is more than just a raised voice and where there is a definite intent to intimidate or threaten another person. For example, verbal attacks, abuse, name-calling, verbally neutral comments uttered in a snarling aggressive manner.: No (01/05/242038) Physical Attacks - Where there is a definite intent to physically threaten another person. For example, the taking of an aggressive stance, the grabbing of another person???s clothing, the raising ofan arm or leg, making a fist or modeling a head-butt directed at another. : No (01/05/242038) Attacks on Objects - An attack directed at an object and not an individual. For example, the indiscriminant throwing of an object, banging or smashing windows, kicking, banging or head butting an object or the smashing of furniture. : No (01/05/242038) Total: 0 (01/05/242038) CHELE Behaviors Assessing Overt Behavior for CHELE: None noted (01/05/242038) Medical Issues/New Medication Teaching Phil was informed about benefits and any potential clinically significant side effects or other concerns regarding the administration of the medication he was given. See separate notes for any prn medications provided during shift. Problem: Depressed Mood Goal: Aquatics Instructor: Demonstrates reduced symptoms of depression and improved level of functioning by discharge. Outcome: Variance Problem: Anxiety Goal: Aquatics Instructor:Maintain anxiety at a functional level as evidenced by absence of disabling behaviors in response to stress by discharge. Outcome: Variance * Care Plan - Sadia Vicente RN - 01/05/2024 8:39 PM CDT During this shift, Phil was given the prn medication Trazodone for insomnia as demonstrated by the following behavior: restlessness and per patient request. (See MAR for administration time.) Approximately 1 hour after medication administration, Phil appeared or reported the following: patient resting in bed with eyes closed. * Care Plan - Laly Leal RN - 01/05/2024 10:38 AM CDT 0851:During this shift, Phil was given the prn medication Ibuprofen for pain, as demonstrated bythe following behavior: rates pain to ankle as 8/10 (See MAR for administration time.) Approximately 1 hour after medication administration, Phil appeared or reported the following:sleeping 0851:During this shift, Phil was given the prn medication hydroxyzine for anxiety, as demonstrated by the following behavior: rates anxiety as 6/10 (See MAR for administration time.) Approximately1 hour after medication administration, Phil appeared or reported the following:sleeping * Care Plan - Laly Leal RN - 01/05/2024 10:19 AM CDT Shift Narrative: Received Phil on unit in no obvious distress, no complain made. Mood ???I am doing ok?? with congruent affect. Speech low tone clear and logical in content. Behavior cooperative.Rates his anxiety as 6/10 and depression as 4/10. Reports goal as to be stable. Denies all forms of hallucinations, self-harm, suicidal thoughts, delusions, and homicidal ideations. Oriented. Contracts for safety. Reports last bowel movement was yesterday. Took and tolerated meals and medicationswillingly. Participates in group activities while socializes with peers. Monitored every fifteen minutes. Behavorial health precautions maintained. Vital signs in normal ranges. Precautions Behavioral Health Precautions: Suicide precautions (01/05/24819) Summary of Phil's problems and interventions: (See flowsheets for more detailed summary) Plan of Care Reviewed with: patient (01/05/24819) Patient's Individualized Goal: to be stable. (01/05/24819) Phil's response to interventions this shift: Accepting and Engaged Self Phil's perception of symptoms and progress toward goals: improved Discharge follow up plan reviewed/discussed during the 1:1 shift interview: yes Does the patient have a legal guardian? No If yes, describe: Does the patient have a Power of Manager Relocation? No If yes, describe: Legal Status: Voluntary MENTAL HEALTH ASSESSMENT: Behavior: Calm;Cooperative (01/05/24819) Observed Emotional State: accepting;calm;cooperative (01/05/24819) Verbalized Emotional State: anxiety;depression;flat effect;labile (01/05/24819) Speech: poverty of content (01/05/24819) Thought Processes: Logical (01/05/24819) Social Judgement: Appropriate to situation (01/05/24819) Appearance: Appears stated age (01/05/24819) Risk Assessment 1. Have you wished you were or wished you could go to sleep and not wake up?: Yes (01/05/24819) 2. Have you actually had any thoughts of killing yourself?: No (01/05/24819) 6. Have you ever done anything, started to do anything, or prepared to do anything to end your life?: No (01/05/24819) Suicide Risk and Interventions: High (01/05/24819) Depressive Symptoms Symptoms: Feelings of hopelessness (01/05/24819) Describe: 10/30 (01/05/24819) Anxiety Symptoms Symptoms: Generalized (01/05/24819) Describe: 12/30 (01/05/24819) Manic Symptoms Symptoms: No problems reported or observed (01/05/24819) Describe: none (01/02/24820) Psychotic Symptoms Hallucination Type: No problems reported or observed (01/05/24819) Delusion Type: No problems reported or observed (01/05/24819) Homicidal Ideation Violence-Risk Towards Others In the past month have you had thoughts of harming another person?: No (01/05/24819) Broset Broset Violence Checklist Confusion - Appears obviously confused and disoriented. May be unaware of person, place, time.: No (01/05/24819) Irritability - Easily annoyed or angered. Unable to tolerate the presence of others.: No (01/05/24819) Boisterous - Behavior is overtly loud or noisy. For example slams doors, shouts out when talking etc.: No (01/05/24819) Verbal Threat - A verbal outburst which is more than just a raised voice and where there is a definite intent to intimidate or threaten another person. For example, verbal attacks, abuse, name-calling, verbally neutral comments uttered in a snarling aggressive manner.: No (01/05/24819) Physical Attacks - Where there is a definite intent to physically threaten another person. For example, the taking of an aggressive stance, the grabbing of another person???s clothing, the raising ofan arm or leg, making a fist or modeling a head-butt directed at another. : No (01/05/24819) Attacks on Objects - An attack directed at an object and not an individual. For example, the indiscriminant throwing of an object, banging or smashing windows, kicking, banging or head butting an object or the smashing of furniture. : No (01/05/24819) Total: 0 (01/05/24819) CHELE Behaviors Assessing Overt Behavior for CHELE: None noted (01/05/24819) Tank House Operator Communication Tank House Operator Name: Update provided: [] Yes [] No Summary of conversation: Any concerns (if yes, please explain): Voicemail left for respiratory care instructor: [] N/A [] No [] Yes: Date/Time Medical Issues/New Medication Teaching Phil was informed about benefits and any potential clinically significant side effects or other concerns regarding the administration of the medication he was given. See separate notes for any prn medications provided during shift. * Care Plan - Laly Leal RN - 01/05/2024 10:19 AM CDT Problem: Depressed Mood Goal: Chcf: Demonstrates reduced symptoms of depression and improved level of functioning by discharge. Outcome: Variance Problem: Suicide Risk/Attempt Goal: Chcf: Reduction of suicidal thoughts and absence of suicidal behavior throughout admission and establish a safety plan by discharge. Outcome: Progressing Problem: Anxiety Goal: Aquatics Instructor:Maintain anxiety at a functional level as evidenced by absence of disabling behaviors in response to stress by discharge. Outcome: Variance Problem: Cognitive/Perceptual/Neuro Goal: Achieve optimal cognitive/perceptual/neurological function by discharge or maintain baseline function Outcome: Progressing * Care Plan - Kevin Velasco RN - 01/05/2024 12:42 AM CDT Problem: Suicide Risk/Attempt Goal: Aquatics Instructor: Reduction of suicidal thoughts and absence of suicidal behavior throughout admission and establish a safety plan by discharge. Outcome: Progressing Problem: Depressed Mood Goal: Aquatics Instructor: Demonstrates reduced symptoms of depression and improved level of functioning by discharge. Outcome: Progressing Problem: Anxiety Goal: Aquatics Instructor:Maintain anxiety at a functional level as evidenced by absence of disabling behaviors in response to stress by discharge. Outcome: Progressing Problem: Cognitive/Perceptual/Neuro Goal: Achieve optimal cognitive/perceptual/neurological function by discharge or maintain baseline function Outcome: Progressing * Care Plan - Gracie Javed RN - 01/04/2024 2:01 PM CDT Problem: Discharge Planning Goal: Identify discharge needs upon admission and through discharge Description: Outcome: Progressing MHCM met with pt to update safety plan. Pt was able to identify new warning signs and coping skillsnecessary for plan to be relevant for use upon discharge. Pt discussed their current personal and professional supports. Pt identified methods to improve the safety of their environment via the removal of any lethal means. MHCM prompted pt to discuss, ???The one thing that is most important to me and worth living for?? . Pt was able to identify reasons for living. MHCM prompted pt to consider newly acquired skills which have led to symptom reduction and improved level of functioning. * Care Plan - Laly Leal RN - 01/04/2024 1:04 PM CDT 0852: During this shift, Phil was given the prn medication Ibuprofen for pain, as demonstrated by the following behavior: rates pain as 8/10 (See MAR for administration time.) Approximately 1 hourafter medication administration, Phil appeared or reported the following: no more pain 1232: During this shift, Phil was given the prn medication Hydroxyzine for anxiety, as demonstrated by the following behavior: rates anxiety as 8/10 (See MAR for administration time.) Approximately 1 hour after medication administration, Phil appeared or reported the following: sleeping 1816:During this shift, Phil was given the prn medication Ibuprofen for pain, as demonstrated bythe following behavior: rates pain as 8/10 (See MAR for administration time.) Approximately 1 hour after medication administration, Phil appeared or reported the following: decrease anxiety as 5/10 * Care Plan - Laly Leal RN - 01/04/2024 12:55 PM CDT Shift Narrative: Received Phil on unit in no obvious distress, complain of pain to left foot. Mood ???I am ok, but my right ankle hurts, with congruent affect; Medicated as prescribed. Speech lowtone clear and logical in content. Behavior cooperative. Rates his anxiety as 6/10 and depression as 4/10. Reports goal as to get stabilized. Admits to suicidal thoughts, but no plan. Denies all forms of hallucinations, self-harm, delusions, and homicidal ideations. Oriented. Contracts for safety. Reports last bowel movement was yesterday. Took and tolerated meals and medications willingly. Participates in group activities while socializes with peers. Monitored every fifteen minutes. Behavorial health precautions maintained. Vital signs in normal ranges. Precautions Behavioral Health Precautions: Suicide precautions (01/04/24839) Summary of Phil's problems and interventions: (See flowsheets for more detailed summary) Plan of Care Reviewed with: patient (01/04/24839) Patient's Individualized Goal: to get stability.' (01/04/24839) Phil's response to interventions this shift: Accepting and Engaged Self Phil's perception of symptoms and progress toward goals: improved Discharge follow up plan reviewed/discussed during the 1:1 shift interview: yes Does the patient have a legal guardian? No If yes, describe: Does the patient have a Power of Manager Relocation? No If yes, describe: Legal Status: Voluntary MENTAL HEALTH ASSESSMENT: Behavior: Calm;Cooperative (01/04/24839) Observed Emotional State: accepting;calm;cooperative (01/04/24839) Verbalized Emotional State: depression;anxiety (01/04/24839) Speech: No problems observed (01/04/24839) Thought Processes: Logical (01/04/24839) Social Judgement: Difficulty in problem solving (01/04/24839) Appearance: Appears stated age (01/04/24839) Risk Assessment 1. Have you wished you were or wished you could go to sleep and not wake up?: Yes (01/04/24839) 2. Have you actually had any thoughts of killing yourself?: Yes (01/04/24839) 6. Have you ever done anything, started to do anything, or prepared to do anything to end your life?: No (01/04/24839) Suicide Risk and Interventions: High (01/04/24839) Depressive Symptoms Symptoms: Change in energy level (01/04/24839) Describe: 4/10 (01/04/24839) Anxiety Symptoms Symptoms: Generalized (01/04/24839) Describe: 6/10 (01/04/24839) Manic Symptoms Symptoms: No problems reported or observed (01/04/24839) Describe: none (01/02/24820) Psychotic Symptoms Hallucination Type: No problems reported or observed (01/04/24839) Delusion Type: No problems reported or observed (01/04/24839) Homicidal Ideation Violence-Risk Towards Others In the past month have you had thoughts of harming another person?: No (01/04/24839) [facility] Violence Checklist Confusion - Appears obviously confused and disoriented. May be unaware of person, place, time.: No (01/04/24839) Irritability - Easily annoyed or angered. Unable to tolerate the presence of others.: No (01/04/24839) Boisterous - Behavior is overtly loud or noisy. For example slams doors, shouts out when talking etc.: No (01/04/24839) Verbal Threat - A verbal outburst which is more than just a raised voice and where there is a definite intent to intimidate or threaten another person. For example, verbal attacks, abuse, name-calling, verbally neutral comments uttered in a snarling aggressive manner.: No (01/04/24839) Physical Attacks - Where there is a definite intent to physically threaten another person. For example, the taking of an aggressive stance, the grabbing of another person???s clothing, the raising ofan arm or leg, making a fist or modeling a head-butt directed at another. : No (01/04/24839) Attacks on Objects - An attack directed at an object and not an individual. For example, the indiscriminant throwing of an object, banging or smashing windows, kicking, banging or head butting an object or the smashing of furniture. : No (01/04/24839) Total: 0 (01/04/24839) CHELE Behaviors Assessing Overt Behavior for CHELE: None noted (01/04/24839) Tank House Operator Communication Tank House Operator Name: Update provided: [] Yes [] No Summary of conversation: Any concerns (if yes, please explain): Voicemail left for respiratory care instructor: [] N/A [] No [] Yes: Date/Time Medical Issues/New Medication Teaching Phil was informed about benefits and any potential clinically significant side effects or other concerns regarding the administration of the medication he was given. See separate notes for any prn medications provided during shift. * Care Plan - Laly Leal RN - 01/04/2024 12:55 PM CDT Problem: Suicide Risk/Attempt Goal: Aquatics Instructor: Reduction of suicidal thoughts and absence of suicidal behavior throughout admission and establish a safety plan by discharge. Outcome: Progressing Problem: Depressed Mood Goal: Aquatics Instructor: Demonstrates reduced symptoms of depression and improved level of functioning by discharge. Outcome: Variance Problem: Anxiety Goal: Chcf:Maintain anxiety at a functional level as evidenced by absence of disabling behaviors in response to stress by discharge. Outcome: Variance Problem: Cognitive/Perceptual/Neuro Goal: Achieve optimal cognitive/perceptual/neurological function by discharge or maintain baseline function Outcome: Progressing * Care Yosef - Melia Man RN - 01/03/2024 9:20 PM CDT Problem: Suicide Risk/Attempt Goal: Aquatics Instructor: Reduction of suicidal thoughts and absence of suicidal behavior throughout admission and establish a safety plan by discharge. Outcome: Variance Problem: Depressed Mood Goal: Aquatics Instructor: Demonstrates reduced symptoms of depression and improved level of functioning by discharge. Outcome: Variance Problem: Discharge Planning Goal: Identify discharge needs upon admission and through discharge Description: Outcome: Variance Problem: Anxiety Goal: Chcf:Maintain anxiety at a functional level as evidenced by absence of disabling behaviors in response to stress by discharge. Outcome: Variance * Care Yosef - Melia Man RN - 01/03/2024 9:20 PM CDT Shift narrative: He was up and out of room this evening, stated his ankle had pain scale 8/10. Was medicated and he did not complained of any more pain/discomfort. Had presented with a brighter affect, good eye contact. 1930: Assumed care upon rounding and receiving report on patient. Phil is calm, cooperative and out on the unit this evening. Patient was observed attending groupduring start of shift. He verbalizes that he is feeling better, yet not well enough for discharge. Phil denies SI/HI and contracts for safety. Phil rates depression 2/10 and anxiety 2/10. Phil denies auditory/visual hallucinations and does not appear to be responding to internal stimuli. No delusional statements were voiced this shift. Patient was med compliant. Phil has been attending groups. Phil is agreeable to let staff know if any of these thoughts change and they feel as ifthey cannot handle them. This RN and patient conversed about their treatment plan, and they were enc ouraged to work on their safety plan. Encouraged pt to complete ADLs, participate in groups, and speak with their provider tomorrow. Patient was educated that if any needs arise throughout the night,staff would be present to assist. Will continue to provide quality care and compassion as to pt needs. Safety and comfort rounds provided every 15 minutes. 0700: [facility]. Patient's Individualized Goal: to get back to normal (01/03/24900) Precautions/Behavioral Health Precautions: Suicide precautions (01/03/24900) Does the patient have a legal guardian? No Does the patient have a Power of Manager Relocation? No Legal Status: Voluntary MENTAL HEALTH ASSESSMENT: Behavior: Calm;Cooperative;Sedentary (01/03/24900) Observed Emotional State: calm;quiet (01/03/24900) Verbalized Emotional State: depression (01/03/24900) Speech: No problems observed (01/03/24900) Thought Processes: Logical (01/03/24900) Social Judgement: Appropriate to situation (01/03/24900) Appearance: Appears stated age (01/03/24900)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 ~END~ External Community Referrals ED Enhancement 12/02 Referral Line: [phone] [facility] Opioid Project: [phone] documented in this encounter Plan of Treatment Not on file documented as of this encounter Procedures Procedure Name Priority Date/Time Associated Diagnosis Comments XR ANKLE 3+ VW RIGHT Routine 01/03/2024 4:35 PM CDT GC/CHLAMYDIA, RECTAL Stat 01/01/2024 3:13 PM CDT EKG 12-LEAD Stat 01/01/2024 3:06 PM CDT DIFFERENTIAL, MANUAL Stat 01/01/2024 3:03 PM CDT TREPONEMA PALLIDUM PARTICLE AGGLUT Routine 01/01/2024 3:03 PM CDT CBC WITH DIFFERENTIAL Stat 01/01/2024 3:03 PM CDT RPR Stat 01/01/2024 3:03 PM CDT TRIGLYCERIDE Routine 01/01/2024 3:03 PM CDT TSH Routine 01/01/2024 3:03 PM CDT HEMOGLOBIN A1C Routine 01/01/2024 3:03 PM CDT ETHANOL LEVEL Stat 01/01/2024 3:03 PM CDT ACETAMINOPHEN LEVEL Stat 01/01/2024 3 :03 PM CDT SALICYLATE LEVEL Stat 01/01/2024 3:03 PM CDT LIPID PANEL Routine 01/01/2024 3:03 PM CDT COMPREHENSIVE METABOLIC PANEL Stat 01/01/2024 3:03 PM CDT DRUG SCREEN, URINE Stat 01/01/2024 2: 57 PM CDT URINALYSIS W/REFLEX MICROSCOPIC Routine 01/01/2024 2:57 PM CDT documented in this encounter Results * XR ANKLE 3+ VW RIGHT (01/03/2024 4:35 PM CDT) Anatomical Region Laterality Modality Ankle / Foot Computed Radiogr aphy 01/03/2024 4:36 PM CDT Impressions 01/03/2024 4:55 PM CDT FINDINGS/IMPRESSION: ?? There is a nondisplaced fifth metatarsal base fracture without dislocation. DICTATION LOCATION: Location [address] [place] [address] ?? Narrative 01/03/2024 4:55 PM CDT EXAMINATION: XR ANKLE 3+ VW RIGHT DATE: 01/03/2024 4:35 PM HISTORY: Pain; Severe recurrent major depression without psychotic features COMPARISON: 07/11/2023 ?? Procedure Note Jaswant Arguello MD - 01/03/2024 EXAMINATION: XR ANKLE 3+ VW RIGHT DATE: 01/03/2024 4:35 PM HISTORY: Pain; Severe recurrent major depression without psychotic features COMPARISON: 07/11/2023 FINDINGS/IMPRESSION: There is a nondisplaced fifth metatarsal base fracture without dislocation. DICTATION LOCATION: Location [address] [place] [address] us Manda Serna DO DIAGNOSTIC IMAGING ORDERABLES Final Result * GC/CHLAMYDIA, RECTAL (01/01/2024 3:13 PM CDT) Pathologist [facility] CHLAMYDIA DNA AMPLIFICATION NOT DETECTED Not Detected 01/01/2024 10:12 PM CDT [facility] GC DNA AMPLIFICATION NOT DETECTED Not Detected 01/01/2024 10:12 PM CDT [facility] Rectal Collection / Unknown 01/01/2024 3:13 PM CDT 01/01/2024 3:31 PM CDT Narrative [facility] - 01/01/2024 10:12 PM CDT Results should not be used for the evaluation of suspected sexual abuse or for other medico-legal indications. The only legally accepted results are from culture. Results cannot be used to assess therapeutic success or failure since nucleic acids may persist following antimicrobial therapy. August De La Vega MD MICROBIOLOGY - GENERAL O RDERABLES Final Result [facility]# [id number] [address] [place] [address] * EKG 12-LEAD (01/01/2024 3:06 PM CDT) 01/01/2024 3:06 PM CDT Narrative INTERFACE SYSTEM - 01/01/2024 3:07 PM CDT ? [facility] ? [address] [place] [address] ? Test Date: ?2024-01-01 Pat Name: ? PHIL CHASE ?Department: ?? 93 ?Room: ? 2434 2434 Gender: ? Male ? Auditor Tax: ?? AB : ?1995 ? Requested By: ? Order Number: [id number] ? Reading : ?? [place] ? Measurements Intervals ?[place] ? Rate: ? 69 ? P: ?56 VT: ? 174 ?QRS: ?56 QRSD: ? 90 ? T: ?47 QT: ? 382 ? QTc: ?409 ? Interpretive Statements Normal sinus rhythm Normal ECG No previous ECG available for comparison Electronically Signed On 01-01-2024 15:07:05 CDT by Peter Park Procedure Note Peter Park MD - 01/01/2024 [facility] [place] [address] [place] [address] Test Date: 2024-01-01 Pat Name: PHIL CHASE Department: 93 Room: [address] [place] [address] Gender: Male Auditor Tax: : 1995 Requested By: Order Number: [id number] Reading MD: Peter Park Measurements Intervals [place] Rate: 69 P: 56 VT: 174 QRS: 56 QRSD: 90 T: 47 QT: 382 QTc: 409 Interpretive Statements Normal sinus rhythm Normal ECG No previous ECG available for comparison Electronically Signed On 01-01-2024 15:07:05 CDT by [place] us Vin Castaneda MD ECG ORDERABLES Final Result Performing Organization Address City/[facility]/ZIP Co de Phone Number INTERFACE SYSTEM Refer to clinic/hospital department * (ABNORMAL) TREPONEMA PALLIDUM PARTICLE AGGLUT (01/01/2024 3:03 PM CDT) TREPONEMA PALLIDUM PARTICLE AGGLUT Reactive( A) Nonreactive 01/05/2024 1:32 PM CDT [facility] Comment: The Treponema pallidum particle agglutination assay is a treponemal assay that is intended to be used with other tests (e.g., RPR) as part of a diagnostic algorithm in the diagnosis of syphilis. Blood Venipuncture / Unknown 01/01/2024 3:03 PM CDT 01/01/2024 3:11 PM CDT Narrative [facility] - 01/05/2024 1:32 PM CDT Performing Organization Information: ?Site ID: AMD ?Name: [place] ?Address: [address] [place] [address] [address] [place] ?Director: Tj Arroyo M.D.,PhD us August De La Vega MD CHEMISTRY ORDERABLES Fin al Result [facility] [phone] * (ABNORMAL) TRIGLYCERIDE (01/01/2024 3:03 PM CDT) TRIGLYCERIDE 167(H) <150 mg/dL 01/02/2024 12:57 AM CDT [facility] Blood Venipuncture / Unknown 01/01/2024 3:03 PM CDT 01/01/2024 3:24 PM CDT Narrative [facility] - 01/02/2024 12:57 AM CDT TRIGLYCERIDES ? mg/dL Normal ?< 150 Borderline High ?150 - 199 High ? 200 - 499 Very High ? >= 500 Based on AHA/NCEP Guidelines. us Ronda Dudley MD CHEMISTRY ORDERABLES Final Resul t [facility] CLIA# [id number] [place] [address] * (ABNORMAL) LIPID PANEL (01/01/2024 3:03 PM CDT) CHOLESTEROL 155 <200 mg/dL 01/02/2024 12:57 AM CDT [facility] TRIGLYCERIDE 167(H) <150 mg/dL 01/02/2024 12:57 AM CDT [facility] HDL 42 40 - 59 mg/dL 01/02/2024 12:57 AM CDT [facility] LDL CALCULATED 80 <100 mg/dL 01/02/2024 12:57 AM CDT [facility] NON-HDL CHOLESTEROL 113 <130 mg/dL 01/02/2024 12:57 AM CDT [facility] Blood Venipuncture / Unknown 01/01/2024 3:03 PM CDT 01/01/2024 3:24 PM CDT Narrative [facility] - 01/02/2024 12:57 AM CDT TOTAL CHOLESTEROL ??mg/dL ??Desirable <200 ??Borderline [...] Reference Ranges for Lipid Panels (NCEP/AMA) . us Ronda Dudley MD CHEMISTRY ORDERABLES Final Resul t [facility] CLIA# [id number] [place] [address] * (ABNORMAL) HEMOGLOBIN A1C (01/01/2024 3:03 PM CDT) HEMOGLOBIN A1C 5.8(H) <=5.6 % 01/02/2024 12:50 AM CDT [facility] EST. AVG GLUCOSE, A1C 120 mg/dL 01/02/2024 12:50 AM CDT [facility] Blood Venipuncture / Unknown 01/01/2024 3:03 PM CDT 01/01/2024 3:22 PM CDT [facility] - 01/02/2024 12:50 AM CDT HGB A1C INTERPRETATION NORMAL: ? <5.7% PRE-DIABETES: 5.7 - 6.4% DIABETES: ? 6.5% OR GREATER Ronda Dudley MD CHEMISTRY ORDERABLES Final Resul t [facility]# [id number] [place] [address] * TSH (01/01/2024 3:03 PM CDT) Pathologist [facility] TSH 1.51 0.27 - 4.20 uIU/mL 01/02/2024 12:57 AM CDT [facility] Blood Venipuncture / Unknown 01/01/2024 3:03 PM CDT 01/01/2024 3:24 PM CDT Ronda Dudley MD CHEMISTRY ORDERABLES Final Resul t Performing Organization Address City/[facility]/ZIP Co de Phone Number [facility]# [id number] [address] [place] [address] * (ABNORMAL) MANUAL DIFFERENTIAL (01/01/2024 3:03 PM CDT) [facility] SEGMENTED NEUTROPHILS 53 % 01/01/2024 4:21 PM CDT [facility] LYMPHOCYTES RELATIVE 33(L) 43 - 53 % 01/01/2024 4:21 PM CDT [facility] MONOCYTES RELATIVE 10 % 01/01/2024 4:21 PM CDT [facility] EOSINOPHILS RELATIVE 3 % 01/01/2024 4:21 PM CDT [facility] BASOPHILS RELATIVE 1 % 01/01/2024 4:21 PM CDT [facility] NEUTROPHILS ABSOLUTE COUNT 1.91 >=0.50 K/uL 01/01/2024 4:21 PM CDT [facility] LYMPHOCYTES ABSOLUTE 1.19 0.70 - 4.50 K/uL 01/01/2024 4:21 PM CDT [facility] MONOCYTES ABSOLUTE 0.36 0.10 - 1.30 K/uL 01/01/2024 4:21 PM CDT [facility] EOSINOPHILS ABSOLUTE 0.11 K/uL 01/01/2024 4:21 PM CDT [facility] BASOPHILS ABSOLUTE 0.04 0.00 - 2.00 K/uL 01/01/2024 4:21 PM CDT [facility] TOTAL CELLS COUNTED IN DIFF 100 01/01/2024 4:21 PM CDT [facility] PLATELET EST. Consistent w Count 01/01/2024 4:21 PM CDT [facility] ANISOCYTOSIS 1+ /hpf 01/01/2024 4:21 PM CDT [facility] POIKILOCYTES 2+ /hpf 01/01/2024 4:21 PM CDT [facility] OVALOCYTES 1+ /hpf 01/01/2024 4:21 PM CDT [facility] STOMATOCYTES Present /hpf 01/01/2024 4:21 PM CDT [facility] Blood Venipuncture / Unknown 01/01/2024 3:03 PM CDT 01/01/2024 3:22 PM CDT Vin Castaneda MD HEMATOLOGY ORDERABLES COM Final Result [facility] CLIA# [id number] [place] [address] * (ABNORMAL) RPR (01/01/2024 3:03 PM CDT) RPR REACTIVE(A ) Non-Reacti ve 01/02/2024 10:10 AM CDT [facility] Comment:Specimen sent to ref erence lab for confirmation. RPR TITER 1:64 Titer 01/02/2024 10:10 AM CDT [facility] Blood Venipuncture / Unknown 01/01/2024 3:03 PM CDT 01/01/2024 3:11 PM CDT August De La Vega MD CHEMISTRY ORDERABLES Fin al Result [facility] CLIA# [id number] [address] [place] [address] * SALICYLATE LEVEL (01/01/2024 3:03 PM CDT) SALICYLATE LEVEL <0.5 <30.0 mg/dL 01/01/2024 3:56 PM CDT [facility] Blood Venipuncture / Unknown 01/01/2024 3:03 PM CDT 01/01/2024 3:24 PM CDT Vin Castaneda MD CHEMISTRY ORDERABLES Final Resul t Performing Organization Address City/[facility]/ZIP Co de Phone Number [facility] CLIA# [id number] [address] [place] [address] * ACETAMINOPHEN LEVEL (01/01/2024 3:03 PM CDT) ACETAMINOPHEN LEVEL <5 <30 ug/mL 01/01/2024 3:56 PM CDT [facility] Blood Venipuncture / Unknown 01/01/2024 3:03 PM CDT 01/01/2024 3:24 PM CDT Vin Castaneda MD CHEMISTRY ORDERABLES Final Resul t Performing Organization Address City/[facility]/ZIP Co de Phone Number [facility] CLIA# [id number] [place] [address] * ETHANOL LEVEL (01/01/2024 3:03 PM CDT) ETHANOL <10.10 No Ref Range Estab mg/dL 01/01/2024 3:56 PM CDT [facility] ETHANOL % <0.01 %w/v 01/01/2024 3:56 PM CDT [facility] Blood Venipuncture / Unknown 01/01/2024 3:03 PM CDT 01/01/2024 3:24 PM CDT Vin Castaneda MD CHEMISTRY ORDERABLES Final Resul t [facility] CLIA# [id number] [address] [place] [address] * (ABNORMAL) COMPREHENSIVE METABOLIC PANEL (01/01/2024 3:03 PM CDT) SODIUM 133(L) 136 - 145 mmol/L 01/01/2024 3:56 PM CDT [facility] POTASSIUM 4.3 3.4 - 5.1 mmol/L 01/01/2024 3:56 PM CDT [facility] CHLORIDE 98 98 - 107 mmol/L 01/01/2024 3:56 PM CDT [facility] CO2 24 22 - 29 mmol/L 01/01/2024 3:56 PM CDT [facility] CALCIUM 9.3 8.6 - 10.4 mg/dL 01/01/2024 3:56 PM CDT [facility] BUN 15 6 - 20 mg/dL 01/01/2024 3:56 PM CDT [facility] CREATININE 1.09 0.67 - 1.17 mg/dL 01/01/2024 3:56 PM CDT [facility] GLUCOSE 89 74 - 99 mg/dL 01/01/2024 3:56 PM CDT [facility] TOTAL PROTEIN 8.3 6.3 - 8.7 g/dL 01/01/2024 3:56 PM CDT [facility] ALBUMIN 4.1 3.5 - 5.2 g/dL 01/01/2024 3:56 PM CDT [facility] BILIRUBIN TOTAL <0.2(L) 0.3 - 1.2 mg/dL 01/01/2024 3:56 PM CDT [facility] ALKALINE PHOSPHATASE 83 40 - 150 U/L 01/01/2024 3:56 PM CDT [facility] AST 30 0 - 41 U/L 01/01/2024 3:56 PM CDT [facility] ALT 28 0 - 41 U/L 01/01/2024 3:56 PM CDT [facility] GFR >60 >=60 mL/min/1.7 3 sq meter 01/01/2024 3:56 PM CDT [facility] Comment:eGFR calculated with 2020 CKD-EPI equation. Vegetarian diet, extremely high or low muscle mass, and may affect results. Cystatin C with Glomerular Filtration Rate is a suitable alternative for these patients. ANION GAP 11 8 - 16 mmol/L 01/01/2024 3:56 PM CDT [facility] Blood Venipuncture / Unknown 01/01/2024 3:03 PM CDT 01/01/2024 3:24 PM CDT us Vin Castaneda MD CHEMISTRY ORDERABLES Final Resul t [facility] CLIA# [id number] [place] [address] * (ABNORMAL) CBC WITH DIFFERENTIAL (01/01/2024 3:03 PM CDT) WBC 3.6(L) 4.5 - 10.5 K/uL 01/01/2024 4:21 PM CDT [facility] NRBCS 1 % 01/01/2024 4:21 PM CDT [facility] RBC 5.42(H) 4.50 - 5.40 M/uL 01/01/2024 4:21 PM CDT [facility] HEMOGLOBIN 14.6 13.6 - 16.5 g/dL 01/01/2024 4:21 PM CDT [facility] HEMATOCRIT 43.9 40.0 - 48.0 % 01/01/2024 4:21 PM CDT [facility] MCV 81.1(L) 82.0 - 99.0 fL 01/01/2024 4:21 PM CDT [facility] MCH 26.9(L) 27.8 - 34.5 pg 01/01/2024 4:21 PM CDT [facility] MCHC 33.2 32.5 - 35.5 g/dL 01/01/2024 4:21 PM CDT [facility] RDW 15.5(H) 11.5 - 14.5 % 01/01/2024 4:21 PM CDT [facility] PLATELETS 303 160 - 420 K/uL 01/01/2024 4:21 PM CDT [facility] MPV 8.4(L) 8.7 - 12.7 fL 01/01/2024 4:21 PM CDT [facility] Blood Venipuncture / Unknown 01/01/2024 3:03 PM CDT 01/01/2024 3:22 PM CDT us Vin Castaneda MD HEMATOLOGY ORDERABLES Final Resu lt [facility] CLIA# [id number] [address] [place] [address] * URINALYSIS WITH REFLEX MICROSCOPIC (01/01/2024 2:57 PM CDT) COLOR UA Yellow Pale to Dark Yellow 01/02/2024 1:43 AM CDT [facility] CLARITY UA Clear Clear 01/02/2024 1:43 AM CDT [facility] SPECIFIC GRAVITY UA 1.017 1.003 - 1.035 01/02/2024 1:43 AM CDT [facility] PH UA 7.0 5.0 - 8.0 01/02/2024 1:43 AM CDT [facility] LEUKOCYTE ESTERASE UA Negative Negative 01/02/2024 1:43 AM CDT [facility] NITRITE UA Negative Negative 01/02/2024 1:43 AM CDT [facility] PROTEIN UA Negative Negative 01/02/2024 1:43 AM CDT [facility] GLUCOSE UA Negative Negative 01/02/2024 1:43 AM CDT [facility] KETONES UA Negative Negative 01/02/2024 1:43 AM CDT [facility] UROBILINOGEN UA Normal <2.0 mg/dL 1:43 AM CDT [facility] BILIRUBIN UA Negative Negative 01/02/2024 1:43 AM CDT [facility] BLOOD UA Negative Negative 01/02/2024 1:43 AM CDT [facility] Urine URINE SPECIMEN OBTAINED BY CLEAN CATCH PROCEDURE / Unknown Collection / Unknown 01/01/2024 2:57 PM CDT 01/01/2024 3:51 PM CDT Ronda Dudley MD URINE ORDERABLES Final Result [facility] CLIA# [id number] [place] [address] * DRUG SCREEN, URINE (01/01/2024 2:57 PM CDT) Pathologist [facility] AMPHETAMINE QUAL, URINE Negative Negative 01/01/2024 3:51 PM CDT [facility] BARBITURATE QUAL, URINE Negative Negative 01/01/2024 3:51 PM CDT [facility] BENZODIAZEPINE QUAL, URINE Negative Negative 01/01/2024 3:51 PM CDT [facility] COCAINE QUAL URINE Negative Negative 2023 3:51 PM CDT [facility] OPIATE QUAL, URINE Negative Negative 2023 3:51 PM CDT [facility] CANNABINOIDS QUAL, URINE Negative Negative 01/01/2024 3:51 PM CDT [facility] PCP QUAL, URINE Negative Negative 3:51 PM CDT [facility] OXYCODONE QUAL, URINE Negative Negative 01/01/2024 3:51 PM CDT [facility] METHADONE QUAL, URINE Negative Negative 01/01/2024 3:51 PM CDT [facility] FENTANYL QUAL, URINE Negative Negative 01/01/2024 3:51 PM CDT [facility] CREATININE, URINE 163.0 40.0 - 278.0 mg/dL 01/01/2024 3:51 PM CDT [facility] Comment:Reference Range vari es with fluid intake and diet. Urine URINE SPECIMEN OBTAINED BY CLEAN CATCH PROCEDURE / Unknown Collection / Unknown 01/01/2024 2:57 PM CDT 01/01/2024 3:51 PM CDT Narrative [facility] - 01/01/2024 3:51 PM CDT This test is a qualitative [...] ? 25 ng/mL Fentanyl ?Negative ?5 ng/mL us Vin Castaneda MD URINE ORDERABLES Final Result [facility]# [id number] [place] [address] documented in this encounter Visit Diagnoses Diagnosis Severe depressed bipolar I disorder without psychotic features- Primary Bipolar I disorder, most recent episode (or current) depressed, severe, without mention of psychotic behavior Severe recurrent major depression without psychotic features Major depressive disorder, recurrent episode, severe, without mention of psychotic behavior Severe recurrent major depression without psychotic features Major depressive disorder, recurrent episode, severe, without mention of psychotic behavior Myelitis, acute transverse Acute (transverse) myelitis NOS Closed nondisplaced fracture of fifth right metatarsal bone Closed fracture of metatarsal bone(s) documented in this encounter Administered Medications Inactive Administered Medications - up to 3 most recent administrations Medication Order MAR Action Action Date Dose Rate Site acetaminophen (TYLENOL) tablet 650 mg 650 mg, Oral, EVERY 6 HOURS PRN, Starting on Sun01/02/24 at 0019, Until Sun01/07/24 at 1507, Other (See Comment), See Admin Instructions, Routine Given 01/02/2024 8:21 AM CDT 650 mg aluminum - magnesium - simethicone (MYLANTA) 200-200-20 mg/5 mL oral suspension 30 mL 30 mL, Oral, EVERY 6 HOURS PRN, Starting on Sun01/02/24 at 0019, Until Sun01/07/24 at 1507, Other (See Comment), GI Upset, Routine benztropine (COGENTIN) injection 1 mg 1 mg, IM, EVERY 12 HOURS PRN, Starting on Sun01/02/24 at 0019, Until Sun01/07/24 at 1507, Other (See Comment), EPS Symptoms: dystonia, parkinsonisms, or tardive dyskinesia, Routine benztropine (COGENTIN) tablet 1 mg 1 mg, Oral, EVERY 12 HOURS PRN, Starting on Sun01/02/24 at 0019, Until Sun01/07/24 at 1507, Other (See Comment), EPS Symptoms: dystonia, parkinsonisms, or tardive dyskinesia, Routine avbzbgzrivc-mbzzstmfqdxgb-hkojyi vir alafenam (BIKTARVY) 50-200-25 mg per tablet 1 Tablet 1 Tablet, Oral, DAILY, First dose on Sun01/02/24 at 1500, Until Discontinued, Routine, Previous Med: rzbhlmuapvr-nppvciatxptsi-soemhb vir alafenam (Biktarvy) 50-200-25 mg Tablet - Orig Sig - Take 1 Tablet by mouth daily. Given 01/07/2024 8:33 AM CDT 1 Tablet Given 01/06/2024 8:20 AM CDT 1 Tablet Given 01/05/2024 8:39 AM CDT 1 Tablet busPIRone (BUSPAR) tablet 5 mg 5 mg, Oral, TWO TIMES DAILY, First dose on Sun01/02/24 at 1230, Until Discontinued, Routine, Previous Med: busPIRone (BUSPAR) 5 mg tablet - Orig Sig - Take 5 mg by mouth 2 times daily. Given 01/07/2024 8:33 AM CDT 5 mg Feeding Started 01/06/2024 8:19 PM CDT 5 mg Given 01/06/2024 8:19 AM CDT 5 mg diphenhydrAMINE (BENADRYL) injection 50 mg 50 mg, IM, EVERY 2 HOURS PRN, 2 doses, Starting on Sun01/02/24 at 0019, Until Sun01/07/24 at 1507, Other (See Comment), extrapyramidal symptom prevention, Routine DULoxetine (CYMBALTA) capsule 60 mg 60 mg, Oral, DAILY, First dose on Sun01/02/24 at 1230, Until Discontinued, Routine, Previous Med: DULoxetine (CYMBALTA) 60 mg Capsule, Delayed Release(E.C.) - Orig Sig - Take 60 mg by mouth daily. Given 01/07/2024 8:33 AM CDT 60 mg Given 01/06/2024 8:19 AM CDT 60 mg Given 01/05/2024 8:39 AM CDT 60 mg haloperidol lactate (HALDOL) injection 5 mg 5 mg, IM, EVERY 2 HOURS PRN, 2 doses, Starting on Sun01/02/24 at 0019, Until Sun01/07/24 at 1507, Other (See Comment), agitated psychosis, Routine hydrOXYzine HCL (ATARAX) tablet 50 mg 50 mg, Oral, EVERY 1 HOUR PRN, 2 doses, Starting on Sun01/02/24 at 0019, Until Sun01/04/24 at 1232, Anxiety, Routine Given 01/04/2024 12:32 PM CDT 50 mg Given 01/02/2024 12:46 AM CDT 50 mg hydrOXYzine HCL (ATARAX) tablet 50 mg 50 mg, Oral, EVERY 6 HOURS PRN, Starting on Sun01/05/24 at 0848, Until Sun01/07/24 at 1507, Anxiety, Routine Given 01/06/2024 6:04 PM CDT 50 mg Given 01/06/2024 8:19 AM CDT 50 mg Given 01/05/2024 8:51 AM CDT 50 mg ibuprofen (MOTRIN) tablet 400 mg 400 mg, Oral, EVERY 6 HOURS PRN, Starting on Sun01/02/24 at 0019, Until Sun01/07/24 at 1507, Other (See Comment), See Admin Instructions, Routine Given 01/07/2024 8:33 AM CDT 400 mg Given 01/06/2024 8:19 AM CDT 400 mg Given 01/05/2024 8:51 AM CDT 400 mg loperamide (IMODIUM) capsule 2 mg 2 mg, Oral, EVERY 4 HOURS PRN, Starting on Sun01/02/24 at 0019, Until Sun01/07/24 at 1507, Diarrhea/Loose Stools, Routine polyethylene glycol (MIRALAX) packet 17 Gram 17 Gram, Oral, EVERY 12 HOURS PRN, Starting on Sun01/02/24 at 0019, Until Sun01/07/24 at 1507, Constipation, or over 48 hours since last BM, Routine promethazine (PHENERGAN) tablet 25 mg 25 mg, Oral, EVERY 4 HOURS PRN, Starting on Sun01/02/24 at 0019, Until Sun01/07/24 at 1507, Nausea, Routine traZODone (DESYREL) tablet 100 mg 100 mg, Oral, NIGHTLY PRN, Starting on Sun01/02/24 at 0019, Until Sun01/07/24 at 1507, Insomnia, Routine Feeding Started 01/06/2024 8:19 PM CDT 10 0 mg Feeding Started 01/05/2024 8:39 PM CDT 100 mg Given 01/04/2024 8:52 PM CDT 100 mg documented in this encounter Active and Recently Administered Medications Times are shown in CDT. Scheduled Medication Order 01/05/2024 01/06/2024 01/07/2024 bictegravir-emtricitab ine-tenofovir alafenam (BIKTARVY) 50-200-25 mg per tablet 1 Tablet 1 Tablet, Oral, DAILY, First dose on Sun01/02/24 at 1500, Until Discontinued, Routine, Previous Med: bictegravir-emtricitab ine-tenofovir alafenam (Biktarvy) 50-200-25 mg Tablet - Orig Sig - Take 1 Tablet by mouth daily. 0839 (Given - Provider: Laly Leal RN) 0820 (Given - Provider: Laly Leal RN) 0833 (Given - Provider: Jean-Paul Sloan, VICTOR MANUEL) busPIRone (BUSPAR) tablet 5 mg 5 mg, Oral, TWO TIMES DAILY, First dose on Sun01/02/24 at 1230, Until Discontinued, Routine, Previous Med: busPIRone (BUSPAR) 5 mg tablet - Orig Sig - Take 5 mg by mouth 2 times daily. 0839 (Given - Provider: Laly Leal RN)2038 (Feeding Started - Provider: Sadia Vicente, RN) 0819 (Given - Provider: Laly eLal, RN)2018 (Feeding Started - Provider: Sadia Vicente, RN) 0833 (Given - Provider: Jean-Paul Sloan, VICTOR MANUEL) DULoxetine (CYMBALTA) capsule 60 mg 60 mg, Oral, DAILY, First dose on Sun01/02/24 at 1230, Until Discontinued, Routine, Previous Med: DULoxetine (CYMBALTA) 60 mg Capsule, Delayed Release(E.C.) - Orig Sig - Take 60 mg by mouth daily. 0839 (Given - Provider: Laly Leal, RN) 0819 (Given - Provider: Laly Leal, RN) 0833 (Given - Provider: Jean-Paul Sloan RN) PRN Medication Order 01/05/2024 01/06/2024 01/07/2024 acetaminophen (TYLENOL) tablet 650 mg 650 mg, Oral, EVERY 6 HOURS PRN, Starting on Sun01/02/24 at 0019, Until Sun01/07/24 at 1507, Other (See Comment), See Admin Instructions, Routine aluminum - magnesium - simethicone (MYLANTA) 200-200-20 mg/5 mL oral suspension 30 mL 30 mL, Oral, EVERY 6 HOURS PRN, Starting on Sun01/02/24 at 0019, Until Sun01/07/24 at 1507, Other (See Comment), GI Upset, Routine benztropine (COGENTIN) injection 1 mg(Linked Group 1) 1 mg, IM, EVERY 12 HOURS PRN, Starting on Sun01/02/24 at 0019, Until Sun01/07/24 at 1507, Other (See Comment), EPS Symptoms: dystonia, parkinsonisms, or tardive dyskinesia, Routine benztropine (COGENTIN) tablet 1 mg(Linked Group 1) 1 mg, Oral, EVERY 12 HOURS PRN, Starting on Sun01/02/24 at 0019, Until Sun01/07/24 at 1507, Other (See Comment), EPS Symptoms: dystonia, parkinsonisms, or tardive dyskinesia, Routine diphenhydrAMINE (BENADRYL) injection 50 mg(Linked Group 2) 50 mg, IM, EVERY 2 HOURS PRN, 2 doses, Starting on Sun01/02/24 at 0019, Until Sun01/07/24 at 1507, Other (See Comment), extrapyramidal symptom prevention, Routine doxepin (SINEquan) capsule 25 mg 25 mg, Oral, NIGHTLY PRN, Starting on Sun01/02/24 at 1222, Until Sun01/07/24 at 1507, Other (See Comment), Insomnia, Routine, Previous Med: doxepin (SINEquan) 25 mg capsule - Orig Sig - Take 1 Capsule (25 mg) by mouth nightly as needed for Other (See Comment) (Insomnia). haloperidol lactate (HALDOL) injection 5 mg(Linked Group 2) 5 mg, IM, EVERY 2 HOURS PRN, 2 doses, Starting on Sun01/02/24 at 0019, Until Sun01/07/24 at 1507, Other (See Comment), agitated psychosis, Routine hydrOXYzine HCL (ATARAX) tablet 50 mg 50 mg, Oral, EVERY 6 HOURS PRN, Starting on 01/05/24 at 0848, Until 01/07/24 at 1507, Anxiety, Routine 0851 (Given - Provider: Laly Leal RN) 0819 (Given - Provider: Laly Leal RN)1804 (Given - Provider: Laly Leal RN - Comment: rates anxiety as 12/30) ibuprofen (MOTRIN) tablet 400 mg 400 mg, Oral, EVERY 6 HOURS PRN, Starting on Sun01/02/24 at 0019, Until 01/07/24 at 1507, Other (See Comment), See Admin Instructions, Routine 0851 (Given - Provider: Laly Leal RN) 0819 (Given - Provider: Laly Leal RN) 0833 (Given - Provider: Jean-Paul Sloan RN - Comment: 03/01 right ankle) loperamide (IMODIUM) capsule 2 mg 2 mg, Oral, EVERY 4 HOURS PRN, Starting on Sun01/02/24 at 0019, Until Sun01/07/24 at 1507, Diarrhea/Loose Stools, Routine polyethylene glycol (MIRALAX) packet 17 Gram 17 Gram, Oral, EVERY 12 HOURS PRN, Starting on Sun01/02/24 at 0019, Until Sun01/07/24 at 1507, Constipation, or over 48 hours since last BM, Routine promethazine (PHENERGAN) tablet 25 mg 25 mg, Oral, EVERY 4 HOURS PRN, Starting on Sun01/02/24 at 0019, Until Sun01/07/24 at 1507, Nausea, Routine traZODone (DESYREL) tablet 100 mg 100 mg, Oral, NIGHTLY PRN, Starting on Sun01/02/24 at 0019, Until 01/07/24 at 1507, Insomnia, Routine 2038 (Feeding Started - Provider: Sadia Vicente RN) 2019 (Feeding Started - Provider: Sadia Vicente RN) Linked Groups Order Group 1: benztropine (COGENTIN) tablet 1 mgJump to med 1 mg, Oral, EVERY 12 HOURS PRN, Starting on Sun01/02/24 at 0019, Until Sun01/07/24 at 1507, Other (See Comment), EPS Symptoms: dystonia, parkinsonisms, or tardive dyskinesia, Routine Or benztropine (COGENTIN) injection 1 mgJump to med 1 mg, IM, EVERY 12 HOURS PRN, Starting on Sun01/02/24 at 0019, Until Sun01/07/24 at 1507, Other (See Comment), EPS Symptoms: dystonia, parkinsonisms, or tardive dyskinesia, Routine Group 2: haloperidol lactate (HALDOL) injection 5 mgJump to med 5 mg, IM, EVERY 2 HOURS PRN, 2 doses, Starting on Sun01/02/24 at 0019, Until Sun01/07/24 at 1507, Other (See Comment), agitated psychosis, Routine And diphenhydrAMINE (BENADRYL) injection 50 mgJump to med 50 mg, IM, EVERY 2 HOURS PRN, 2 doses, Starting on Sun01/02/24 at 0019, Until Sun01/07/24 at 1507, Other (See Comment), extrapyramidal symptom prevention, Routine documented in this encounter
--- OUTSIDE RECORDS SUMMARY | 2024-08-10 03:48 | XMS_ITS | Encounter Summary ---
Author Organization [facility] Address [address] [place] [address] Care Team Providers Care Coordinating Producer Name Role Phone Unavailable Primary Care Provider Unavailabl e Reason for Visit * Reason Comments Medication Refill Encounter Details Date Type Department Care Team (Late st Contact Info) Description 04/06/2020 Refill [facility] [address] [place] [id number] Mary Case MD NO ADDRESS ON FILE Symptomatic HIV infection; Myelopathy associated with HIV infection Social History Tobacco Use Types Packs/Day Years Used Date Smoking Tobacco: Never Smokeless Tobacco: Never Alcohol Use Standard Drinks/Week Comments Never 0 (1 standard drink = 0.6 oz pur e alcohol) Sex and Gender Information Value Date Recorded Sex Assigned at Not on file Legal Sex Male 9:34 AM PLATEN GRINDER Gender Identity Not on file Sexual Orientation Not on file documented as of this encounter Miscellaneous Notes * Telephone Encounter - Mary Case MD - 04/07/2020 4:52 PM CDT Wendy refilled these medications today * Telephone Encounter - Roxanne [place]on RN - 04/06/2020 10:48 AM CDT IM office visit on 09/02/2019. Clinic application mailed out to pt. 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
--- OUTSIDE RECORDS SUMMARY | 2024-08-10 03:48 | XMS_ITS | Encounter Summary ---
Author Organization [facility] Address [address] [place] [address] Care Team Providers Care Mason Liner Name Role Phone Unavailable Primary Care Provider Unavailabl e Reason for Visit * Reason Onset Date Comments Follow Up 09/08/2019 Encounter Details Date Type Department Care Team (Late st Contact Info) Description 09/08/[address] [facility] [address] [id number] Divya Mccullough Follow Up Social History Tobacco Use Types Packs/Day Years Used Date Smoking Tobacco: Never Smokeless Tobacco: Never Alcohol Use Standard Drinks/Week Comments Never 0 (1 standard drink = 0.6 oz pur e alcohol) Sex and Gender Information Value Date Recorded Sex Assigned at Not on file Legal Sex Male 9:34 AM LASER/ELECTRO OPTICS TECHNICIAN Gender Identity Not on file Sexual Orientation Not on file documented as of this encounter Miscellaneous Notes * Telephone Encounter - Divya Mccullough, CHIEF FINANCIAL OFFICER - 09/08/2019 3:02 PM LASER/ELECTRO OPTICS TECHNICIAN Pt missed appt today with Dr. Ac. Attempted to reach pt at [phone], number not in service. Attempted to reach pt at [phone], explained pt missed appt today with Dr. Ac. Pt reports he was confused, was unaware that he had an appt today. Strongly encouraged pt to reschedule appt with Dr. Ac today, provided Dr. Ac's number. Pt voiced understanding, states he will call to reschedule. Pt reports his cousin recently disclosed his diagnosis to his family, which pt feels was a completebetrayal and he is very upset. Active listening and support provided. Pt states he continues to reside at the [facility], paid for by [facility] program and can stay there for the next month or so. Pt states he is working on additional ppwk from the Medicaid office, and will fax it in [place]. Reiterated the importance of f/u when submitting medicaid documentation, pt voiced understanding. Reminded pt of his appt with Dr. Santamaria on 09/16/2019. Pt reports he has been taking all medications as prescribed, he has plenty of all of his meds. Pt states the Zoloft makes him sleepy but he takes it at night, so it is not bothering him. Encouraged pt to continue taking all meds as prescribed and to f/u as needed. Pt voiced appreciation and understanding. Also reminded pt of the need to call the [employer] screening # to complete [place] application, pt voiced understanding. Provided number again. Msg routed to Dr. Wallace and Dr. Case as FYI. guest services ambassador to remain available as needed. R/ELECTRO OPTICS TECHNICIAN documented in this encounter Plan of Treatment Not on file documented as of this encounter Visit Diagnoses Not on filedocumented in this encounter
--- OUTSIDE RECORDS SUMMARY | 2024-08-10 03:48 | XMS_ITS | Encounter Summary ---
Author Organization [employer] Address [address] [place] [address] Care Team Providers Care Horse And Wagon Driver Name Role Phone Unavailable Primary Care Provider Unavailabl e Encounter Details Date Type Department Care Team (Late st Contact Info) Description 01/08/2024 External Device Data STL ABSTRACTION Provider, Abstract [...] on file Legal Sex Male 9:34 AM BIZTALK ARCHITECT Gender Identity Not on file Sexual Orientation Not on file documented as of this encounter Plan of Treatment Not on file documented as of this encounter Visit Diagnoses Not on filedocumented in this encounter
--- OUTSIDE RECORDS SUMMARY | 2024-08-10 03:48 | XMS_ITS | Encounter Summary ---
Author Organization [facility] Address [address] [place] [address] Care Team Providers Care Search Engine Marketing Strategist Name Role Phone Unavailable Primary Care Provider Unavailabl e Reason for Visit * Reason Comments Rash black spots all over Encounter Details Date Type Department Care Team (Late st Contact Info) Description 09/16/2019 8:30 AM POULTRY CUTTER Office Visit [facility] [address] [place] [address] Stephen Beyer MD [address] [place] [address] [address] [place] [address] Anjel Santamaria MD [address] [place] [address] Plaque psoriasis (Primary Dx) Social History Tobacco Use Types Packs/Day Years Used Date Smoking Tobacco: Never Smokeless Tobacco: Never Alcohol Use Standard Drinks/Week Comments Never 0 (1 standard drink = 0.6 oz pur e alcohol) Sex and Gender Information Value Date Recorded Sex Assigned at Not on file Legal Sex Male 9:34 AM POULTRY CUTTER Gender Identity Not on file Sexual Orientation Not on file documented as of this encounter Last Filed Vital Signs Vital Sign Reading Time Taken Comments Blood Pressure 120/70 09/16/2019 8:34 AM POULTRY CUTTER Pulse 80 09/16/2019 8:34 AM POULTRY CUTTER Temperature 37 ??C (98.6 ??F) 09/16/2019 8:3 4 AM POULTRY CUTTER Respiratory Rate - - Oxygen Saturation - - Inhaled Oxygen Concentration - - Weight 69.4 kg (153 lb) 09/16/2019 8:34 AM POULTRY CUTTER shoes and jacket on Height 182.9 cm (6') 09/16/2019 8:34 AM POULTRY CUTTER per pt Body Mass Index 20.75 09/16/2019 8:34 AM POULTRY CUTTER documented in this encounter Progress Notes * Anjel Santamaria MD - 09/16/2019 9:02 AM CST Psoriasis--better with clobetasol--same treatment TRY CUTTER * Brielle Cao - 09/16/2019 8:33 AM CST 09/16/2019 8:33 AM Phil Chase : 1995 ASSESSMENTS Pain: Are you having pain right now? No For Internal Medicine Encounter: Are you on a narcotic pain medication? na If yes, Pain Disability Index completed na (scan into record) Communication: Communication problems? None Abuse/Violence: Are you in a relationship with someone who hurts you emotionally and/or physically?no Nutrition: Have you had any unintended weight loss of 6-8 lbs or more per month? no Have you eaten less than half of your normal intake for a period of one week? no Fall Risk: Have you had a recent fall? no If yes, RN to proceed with fall assessment evaluation. Smoking: If you smoke, are you ready to quit? N/A Social History Tobacco Use ??? Smoking status: Never Smoker ??? Smokeless tobacco: Never Used Substance Use Topics ??? Alcohol use: Never Frequency: Never ??? Drug use: Never Depression: Are you feeling down/depressed/hopeless? no Because of your mood, do you have little interest or pleasure in doing things? no If yes to either question, was an appointment offered to see a Internet Project Manager?not asked TRY CUTTER documented in this encounter Plan of Treatment Not on file documented as of this encounter Visit Diagnoses Diagnosis Plaque psoriasis- Primary Other psoriasis documented in this encounter
--- OUTSIDE RECORDS SUMMARY | 2024-08-10 03:48 | XMS_ITS | Encounter Summary ---
Author Organization [facility] Address [address] [place] [address] Care Team Providers Care Countersinker Name Role Phone Unavailable Primary Care Provider Unavailabl e Encounter Details Date Type Department Care Team (Late st Contact Info) Description 09/07/2023 External Device Data ST[place] ABSTRACTION Provider, Abstract NO ADDRESS ON FILE Social History Tobacco Use Types Packs/Day Years Used Date Smoking Tobacco: Never Smokeless Tobacco: Never Alcohol Use Standard Drinks/Week Comments Never 0 (1 standard drink = 0.6 oz pur e alcohol) Feeling Safe Answer Date Recorded Are you in a relationship wi th someone who hurts you emotionally and/or physically? No 07/11/2023 Food Insecurity Answer Date Recorded Social/Environmental Concerns No concerns Transportation Needs Answer Date Record ed Social/Environmental Concerns No concerns Housing Stability Answer Date Recorded Social/Environmental Concerns No concerns Utility Needs Answer Date Recorded Social/Environmental Concerns No concerns Sex and Gender Information Value Date Recorded Sex Assigned at Not on file Legal Sex Male 9:34 AM TOWER HOIST OPERATOR Gender Identity Not on file Sexual Orientation Not on file documented as of this encounter Plan of Treatment Not on file documented as of this encounter Visit Diagnoses Not on filedocumented in this encounter
--- OUTSIDE RECORDS SUMMARY | 2024-08-10 03:48 | XMS_ITS | Encounter Summary ---
Author Organization [facility] Address [address] [place] [address] Care Team Providers Care Reed Or Wind Instrument Tuner Name Role Phone Unavailable Primary Care Provider Unavailabl e Encounter Details Date Type Department Care Team (Late st Contact Info) Description 11/13/2023 External Device Data STL ABSTRACTION Provider, Abstract [...] on file Legal Sex Male 9:34 AM GEOSCIENCES PROFESSOR Gender Identity Not on file Sexual Orientation Not on file documented as of this encounter Plan of Treatment Not on file documented as of this encounter Visit Diagnoses Not on filedocumented in this encounter
--- OUTSIDE RECORDS SUMMARY | 2024-08-10 03:48 | XMS_ITS | Encounter Summary ---
Author Organization [facility] Address [address] [place] [address] Care Team Providers Care Enameler Name Role Phone Unavailable Primary Care Provider Unavailabl e Reason for Visit * Reason Onset Date Comments Follow Up 09/03/2019 Encounter Details Date Type Department Care Team (Late st Contact Info) Description 09/03/2019 Telephone [facility] [address] [place] [phone] Divya Mccullough Follow Up Social History Tobacco Use Types Packs/Day Years Used Date Smoking Tobacco: Never Smokeless Tobacco: Never Alcohol Use Standard Drinks/Week Comments Never 0 (1 standard drink = 0.6 oz pur e alcohol) Sex and Gender Information Value Date Recorded Sex Assigned at Not on file Legal Sex Male 9:34 AM MANAGER LATIN Gender Identity Not on file Sexual Orientation Not on file documented as of this encounter Miscellaneous Notes * Telephone Encounter - Divya Mccullough, METAL CRAFTS TEACHER - 09/03/2019 4:37 PM MANAGER LATIN Rec'd incoming call from Alvaro pt's manager of case to f/u on pt's needs. Alvaro indicates pt is talking with Trish from [employer] and it is unclear if [facility] [place] will be able to meet pt's needs. [facility] is looking into pt's housing options. Pt had indicated to this worker on 09/02/2019 that he is in emergency housing hotel now paid for by [employer] but is hoping once his Medicaid becomes active, he can move into [employer]. Attempted to reach Alvaro again, 4:39p by calling main intake line [phone], left msg on vm. [facility] Field Nurse/Pharmacy requesting if pt has ADAP info yet, SW hoping to get this info from Alvaro. GER LATIN documented in this encounter Plan of Treatment Not on file documented as of this encounter Visit Diagnoses Not on filedocumented in this encounter
--- OUTSIDE RECORDS SUMMARY | 2024-08-10 03:48 | XMS_ITS | Encounter Summary ---
Author Organization [facility] Address [address] [place] [address] Care Team Providers Care Power Checker Name Role Phone Unavailable Primary Care Provider Unavailabl e Encounter Details Date Type Department Care Team (Late st Contact Info) Description 12/11/2023 External Device Data STL ABSTRACTION Provider, Abstract [...] on file Legal Sex Male 9:34 AM CORE WINDING OPERATOR Gender Identity Not on file Sexual Orientation Not on file documented as of this encounter Plan of Treatment Not on file documented as of this encounter Visit Diagnoses Not on filedocumented in this encounter
--- OUTSIDE RECORDS SUMMARY | 2024-08-10 03:48 | XMS_ITS | Encounter Summary ---
Author Organization [facility] Address [address] [place] [address] Care Team Providers Care Production Maintenance Technician Name Role Phone Unavailable Primary Care Provider Unavailabl e Reason for Visit * Reason Onset Date Comments Transportation Issues 09/19/2019 Encounter Details Date Type Department Care Team (Late st Contact Info) Description 09/19/2019 Telephone [facility] [address] [place] [phone] Karen Franklin LCSW Transportation Issues Social History Tobacco Use Types Packs/Day Years Used Date Smoking Tobacco: Never Smokeless Tobacco: Never Alcohol Use Standard Drinks/Week Comments Never 0 (1 standard drink = 0.6 oz pur e alcohol) Sex and Gender Information Value Date Recorded Sex Assigned at Not on file Legal Sex Male 9:34 AM SACK SORTER Gender Identity Not on file Sexual Orientation Not on file documented as of this encounter Miscellaneous Notes * Telephone Encounter - Karen Franklin LCSW - 09/19/2019 11:09 AM SACK SORTER [facility] that pt is eligible for service through early October based onpresumptive eligibility, until his assessment is completed on 10/19. Called pt at [phone] and [phone] (numbers listed irrigation system installer a Ride application) and LM on both, asking him to return call to discuss Call a Ride services. Pt called back from [phone], explained that he could utilize Call a Ride now while waiting forassessment. Encouraged pt to schedule appt with Dr. Ac. Pt asked for phone number for reservations, but phone was disconnected. He called back later and reservation number was provided. SORTER SORTER SORTER documented in this encounter Plan of Treatment Not on file documented as of this encounter Visit Diagnoses Not on filedocumented in this encounter
--- OUTSIDE RECORDS SUMMARY | 2024-08-10 03:48 | XMS_ITS | Encounter Summary ---
Author Organization [facility] Address [address] Attn: Epic Prelude ADT [place] RAYO [id number] Care Team Providers Care Leather Scrubber Name Role Phone Unavailable Primary Care Provider Unavailabl e Encounter Details Date Type Department Care Team (Latest Contact Info) Description 07/11/2023 Travel Social History Tobacco Use Types Packs/Day [...] on file Legal Sex Male 9:34 AM [employer] Gender Identity Not on file Sexual Orientation Not on file documented as of this encounter Plan of Treatment Not on file documented as of this encounter Visit Diagnoses Not on filedocumented in this encounter
--- OUTSIDE RECORDS SUMMARY | 2024-08-10 03:48 | XMS_ITS | Encounter Summary ---
Author Organization [facility] Address [address] [place] [address] Care Team Providers Care [employer] Beveler Name Role Phone Unavailable Primary Care Provider Unavailabl e Reason for Visit * Reason Comments Hernia Pt reports inguinal hernia that he noticed a few years ago but has continued to grow. Pt reports this week the pain got unbearable and it is the largest its been after heavy lifting 2 days ago. Pt denies urinary symptoms. A&Ox4. * Auth/Cert (Routine) Specialty Diagnoses / Procedures Referred By Ara cazares Referred To Contact Emergency Medicine [facility] Emergency Department [address] [place] [address] Phone: tel: fax: Referral ID Status Reason Start Date Expiration Date Visits Re quested Visits Authorized [id number] 1 1 Encounter Details Date Type Department Care Team (Late st Contact Info) Description 12/14/2022 10:22 AM CDT - 12/14/2022 2:31 PM CDT Emergency [facility] Emergency Department [address] [place] [address] Ernesto Romo MD [address] [place] [id number] Direct inguinal hernia of right side (Primary Dx); Chlamydia; Acquired syphilis; Skin lesion Discharge Disposition: Home or Self Care Social History Tobacco Use Types Packs/Day Years Used Date Smoking Tobacco: Never Smokeless Tobacco: Never Alcohol Use Standard Drinks/Week Comments Never 0 (1 standard drink = 0.6 oz pur e alcohol) Sex and Gender Information Value Date Recorded Sex Assigned at Not on file Legal Sex Male 9:34 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 No / Unsure 12/14/2022 10:16 AM CDT documented as of this encounter Last Filed Vital Signs Vital Sign Reading Time Taken Comments Blood Pressure 130/79 12/14/2022 1:58 PM CDT Pulse 65 12/14/2022 1:58 PM CDT Temperature 36.9 ??C (98.4 ??F) 12/14/2022 1:58 PM CD T Respiratory Rate 18 12/14/2022 1:58 PM CDT Oxygen Saturation 100% 12/14/2022 1:58 PM CDT Inhaled Oxygen Concentration - - Weight 74.8 kg (165 lb) 12/14/2022 10:12 AM CDT Height 182.9 cm (6') 12/14/2022 10:12 AM CDT Body Mass Index 22.38 12/14/2022 10:12 AM CDT documented in this encounter Discharge Instructions * Discharge Instructions* Ernesto Romo MD - 12/14/2022 2:12 PM CDT Please take the full course of doxycycline that is provided by your infectious disease doctor for your chlamydia infection. You received a shot of penicillin for your syphilis infection. You will need to further injections over the next 2 weeks. This will be ordered by your infectious disease physician. Please take the antiretroviral medication once daily to treat your HIV infection. Start taking the Bactrim once daily to help prevent infection due to your AIDS. Follow-up as scheduled on December 19 with your surgeon. If you have pain related to your hernia and are unable to reduce the hernia [place], return for reevaluation to the emergency department. For the skin lesions, please follow-up with the oncologist for further evaluation. * Attachments The following attachments cannot be sent through Care Everywhere. * Syphilis (Northern Irish) * Chlamydia (Northern Irish) * Hernia (Northern Irish) documented in this encounter Medications at Time of Discharge sulfamethoxazole- trimethoprim (BACTRIM DS) 800-160 mg tablet Take 1 Tablet by mouth daily. 30 Tablet 12/14/2022 01/13/2023 gabapentin (NEURONTIN) 300 mg capsuleIndication s:Myelopathy associated with HIV infection Take 1 Capsule (300 mg) by mouth 3 times daily. 90 Capsule 06/30/2022 11:11 AM MEDICAL COST CONSULTANT 06/30/2022 07/16/2023 mirtazapine (REMERON) 45 mg tablet Take 1 Tablet (45 mg) by mouth daily at bedtime. 30 Tablet 06/30/2022 11:11 AM MEDICAL COST CONSULTANT 06/30/2022 07/16/2023 bictegravir-emtri citabine-tenofovi r alafenam (Biktarvy) 50-200-25 mg Tablet Take 1 Tablet by mouth daily. 30 Tablet 06/30/2022 11:11 AM MEDICAL COST CONSULTANT 06/30/2022 02/08/2024 documented as of this encounter Progress Notes * Vin Valle, RT - 12/14/2022 1:42 PM CDT Images from the original note were not included. [facility] IMS CT MRI Medication and Flush Protocol [facility] Approved by: [facility] - Medical Executive Committee Approval Date: 01/05/2022 ORDERS ARE ENTERED ???PER PROTOCOL?? Enter the protocol in the patient's electronic health record using smartphrase: .imagingctmriprotocol Communication Orders: For ordered imaging procedures requiring intravenous access: Initiate a peripheral IV, if not already in place, and discontinue IV prior to discharge (if outpatient). Enter order if needed: Insert Peripheral IV Bariatric Oral Contrast: Post-surgical bariatric patients will have markedly reduced ability to drink normal quantities of liquid. Four ounces will be the maximum amount or less if the patient cannot comfortably tolerate. Cancel oral contrast if patient is nauseated or vomiting. Water based contrast only. Medication Orders: Local Anesthetic for use to initiate IV ADULT Lidocaine 4% (L.M.X.4) applied topically ONE TIME prior to IV catheter insertion PRN (L.M.X.4 % should be applied 15 minutes prior to procedure) PEDIATRIC Lidocaine 4% (L.M.X.4) applied topically ONE TIME prior to IV catheter insertion PRN (apply 30 minutes prior to procedure) Sucrose 24% (Squirts) given PO prior to IV catheter insertion (administer 1 - 2 minutes prior to procedure) OR Sucrose 24% (Tootsweet; Sweet-Ease) oral solution 0.2 mL oral (apply to tongue on pacifier or clean, gloved finger), ONE TIME 2 minutes prior to painful procedure. May repeat dose x1 PRN to complete procedure. Sodium chloride 0.9% (normal saline) flush 10 mL PRN for saline lock or medication administration. For respiratory distress, initiate oxygen and/or increase O2 to maintain saturation greater than 90% For all invasive procedures: obtain Lidocaine 1% for intra-procedure administration. If Lidocaine 1% unavailable, may substitute Lidocaine 2%. PROCEDURE SPECIFIC CT MEDICATIONS Any exceptions to these contrast protocols must be approved by a Radiologist and documented in the EHR Progress Notes. When multiple medications are listed with the comment ???OR?? them, select the first option until challenges from product availability make this option unavailable. Cystogram (CT Pelvis): Iopamidol (Isovue 300) 61%, 50 mL, diluted with 250mL of sterile NS. Inject Isovue into 250 mL bag of NS. Clamp [place] catheter prior to instilling solution via catheter. Instill up to 300 mL of Isovue and NS solution into bladder via catheter, one time. CT ORAL CONTRAST PROTOCOLS FOR ADULTS Use Iohexol (Omnipaque) 240 mg/mL for CT scan unless patient has a documented allergy to contrast dye. If allergy present, use Barium Sulfate (EZ Paque) for procedure. Iopamidol (Isovue 300) 300mg/ml: 30ml added to 960mL of clear liquid of patient's choice. Preferredroute is oral. May use nasoenteric tube if needed. Utilize the following administration instructions when there is a need to conserve contrast 15 mL of Iopamidol (Isovue 300) split into two cups (7.5 mL in each cup) Dilute as usual with 960 mL of clear liquid of patient's choice (480 mL in each cup) Have patient drink one cup an hour before the test, wait 30 minutes then start to drink the next cup, leaving a little over an inch in the bottom of the second cup. As the technologist is getting thepatient from the waiting room after an hour, have the patient finish the rest of the second cup so it can coat and fill the stomach OR Iohexol (Omnipaque) 240 mg/mL: 50ml added to 960mL of clear liquid of patient's choice. Preferred route is oral. May use nasoenteric tube if needed. Administer 900mL of the diluted Omnipaque 240, orally, one time only. Barium Sulfate (EZ Paque /Vanilla Silq) 96% oral suspension: Preferred route is oral. May use nasoenteric tube if needed. Administer 900mL of barium sulfate, orally, one time only. Bariatric Patient: Post-Surgery to 1 year- 50 mL total volume. NO carbonated liquids lopamidol (Isovue 300) 300 mg/mL: mixed with water. Draw 50 mL of mixed solution for patient. Preferred route is orally. May use nasoenteric tube if needed. OR lohexol (Omnipaque) 240 mg/mL: mixed with water. Draw 50mL of mixed solution for patient. Preferredroute is orally. May use nasoenteric tube if needed. (SUBJECT TO AVAILABILITY) After 1 year- no more than 236 mL (8oz) total volume. NO carbonated liquids. lopamidol (Isovue 300) 300 mg/mL: mixed with water OR lohexol (Omnipaque) 240 mg/mL: mixed with water (SUBJECT TO AVAILABILITY) CT ORAL CONTRAST PROTOCOLS FOR PEDIATRICS Pediatrics = up to age 18 Pediatric Radiologist will approve of one of the following products selected for procedure. Barium Sulfate (EZ Paque) 96% oral suspension: preferred route is oral. May use nasoenteric tube ifneeded. [place] to 3 months Administer up to 90mL of Barium sulfate, orally, one time only 4 months to 1 year old Administer up to 240mL of Barium sulfate, Orally, One Time Only 1 year old to 5 years old Administer up to 360mL of Barium sulfate, Orally, One Time Only 5 years old to 10 years old Administer up to 480mL of Barium sulfate, Orally, One Time Only Over 10 years old Administer up to 600mL of Barium sulfate, Orally, One Time Only Iopamidol (Isovue 300) 300 mg/mL oral solution Dilute 25mL of Iohexol with 480mL of clear liquid of patient's choice. Administer the diluted solution per age as follows: Preferred route is orally. May use nasoenteric tube if needed. Send any remaining diluted Iohexol solution with the patient's nurse to CT Iopamidol (Isovue) 300 mg/ml oral solution age appropriate guidelines Administer 45mL of diluted Iopamidol oral solution, orally every 30 minutes x 2 doses. 1 month to 1 year old Administer 120mL of diluted Iopamidol oral solution, orally every 30 min x 2 doses. 1 year old to 5 years old Administer 180mL of diluted Iopamidol oral solution, orally every 30 min x 2 doses. 5 years old to 10 years old Administer 240mL of diluted Iopamidol oral solution, orally every 30 min x 2 doses. Over 10 years old Administer 245mL of diluted Iopamidol oral solution, orally every 30 min x 2 doses. OR Iohexol (Omnipaque) 240 mg/mL oral solution Dilute 25mL of Iohexol with 480mL of clear liquid of patient's choice. Administer the diluted solution per age as follows: Preferred route is orally. May use nasoenteric tube if needed. Send any remaining diluted Iohexol solution with the patient's nurse to CT Iohexol (Omnipaque) 240mg/ml oral solution age appropriate guidelines [place] Administer 45mL of diluted Iohexol oral solution, orally every 30 minutes x 2 doses. 1 month to 1 year old Administer 120mL of diluted Iohexol oral solution, orally every 30 min x 2 doses. 1 year old to 5 years old Administer 180mL of Iohexol orally every 30 min x 2 doses. 5 years old to 10 years old Administer 240mL of Iohexol orally every 30 min x 2 doses. Over 10 years old Administer 250mL of Iohexol orally every 30 min x [address] RECTAL CONTRAST PROTOCOLS ADULTS: Iopamidol (Isovue) 300 mg/mL: Dilute 30mL of Isovue with 900mL of warm water in an enema bag. Administer the diluted solution rectally via gravity per patient's tolerance, up to 950mLs, one time only. OR Iohexol (Omnipaque) 240 mg/mL: Dilute 50mL of Omnipaque with 900mL of warm water in an enema bag. Administer the diluted solution rectally via gravity per patient's tolerance, up to 950mLs, one time only. CT IV CONTRAST PROTOCOLS for ADULT ADULTS: (If patient is less than 55kg and confirm dose with radiologist) Iopadmidol (Isovue-300): Administer 2.2mL/kg of Iopamidol 61%, intravenously, one time only. See table below for maximum dose, unless otherwise authorized by radiologist. If exam has been completed before the entire dose has been administered, stop the injection. Multiple doses of iodine contrast within a 24-hour period are a risk factor for KASSI and should be avoided if possible. Emergent or other unusual circumstances where multiple doses of contrast are required in a short interval time should prompt consideration by the referring professional and radiologist to discuss the risks and benefits of contrast media administration. If exam not included in table below, contact radiologist for orders. Procedure Maximum Dose CT Head with Contrast Up to [address] Chest with Contrast Up to [address] Maxillofacial with Contrast Up to [address] Soft Tissue Neck with Contrast CT Chest Abdomen Pelvis with Contrast CT Chest Abdomen with Contrast CT Abdomen Pelvis with Contrast CT Pelvis with Contrast CT Angiogram Examinations (all) CT Soft Tissue Neck and Chest Abdomen Pelvis with Contrast Up to [address] Soft Tissue Neck and Chest with Contrast CT Urogram with Contrast CT IV CONTRAST PROTOCOLS for PEDIATRICS PEDIATRICS: Use weight-based dosing if patient is less than 55kg and confirm dose with radiologist. to 15 years old Administer 2.2mL/kg (to MAX of 80 mL) of Iopamidol (Isovue-300) 61%, intravenously, one time only 15 years old and older Administer 2.2mL/kg (to MAX of 150mL) of Iopamidol (Isovue-300) 61%, intravenously, one time only PROCEDURE SPECIFIC MRI MEDICATIONS: MRI ENTEROGRAPHY: GLUGACON ADMINISTRATION ADULTS: (patient 18 years or older) Patient will receive 2 doses of Glucagon one dose 0.5mg IM administered by RN prior to the MRI exambeginning 2nd dose 0.5mg IV prior to the IV contrast being administered. (If the patient is diabetic call the radiologist to verify administration of Glucagon) PEDIATRICS: If the patient is diabetic call the radiologist to verify administration of Glucagon Pediatric patient weighing 24.9 kg or less should have one dose of Glucagon 0.5mg IM administered by RN prior to MRI exam beginning. Pediatric patient weighing 25 kg or greater should have one dose of Glucagon 1 mg IM administered by RN prior to the MRI exam beginning. MRI UROGRAM: LASIX ADMINISTRATION ADULTS: Call radiologist with any questions regarding administration of Lasix Lasix 0.1mg per kg with a minimum dose of Lasix 5mg IV being given up to a max dose of Lasix 10mg IV being given. The Lasix should be administered by RN prior to the IV contrast being administered. (Hold Lasix if: obstruction, anuria and hypersensitivity to furosemide, and electrolyte imbalance or hypotension should be corrected by RN before administering) MRI IV CONTRAST PROTOCOLS ADULTS: Multihance and Prohance can be used for most MRI scans Prohance should be used primarily. Multihance is useful in specific circumstances as directed by the radiologist or per the appropriate sections established protocols. Group I gadolinium contrast agents shall not be administered. Generally, multiple doses of gadolinium contrast should not be administered within a 24-hour period. In emergent or other unusual circumstances where this is necessary, only Group II agents should beadministered. For Liver Studies: Contact radiologist to determine use of one of the following: Gadobenate Dimeglumine (Multihance) (0.1mmol/0.2mL), Administer 0.1mmol/kg = 0.2mL/kg up to MAX of 20 mL, intravenously, one time only Gadoteridol (Prohance) (0.1mmol/0.2mL), Administer 0.1mmol/kg = 0.2mL/kg up to MAX of 20mL, intravenously, one time only Gadoxetate (Eovist) (2.5 mmol/10mL), Administer 0.025mmol/kg = 0.1mL/kg up to MAX of 10mL, intravenously, one time only PEDIATRICS: Radiologist to determine need for contrast Term neonates up to 2 years: Gadobuterol (Gadavist) (1mmol/mL injection), Administer 0.1mmol/kg = 0.1mL/kg up to MAX of 14mmol=14mL, intravenously, one time only OR Gadobenate Dimeglumine (Multihance) (0.1mmol/mL), Administer 0.1mmol/kg = 0.1mL/kg up to MAX of 14mmol = 14mL, intravenously, one time only 2 years and older Gadobenate Dimeglumine (Multihance) (0.1mmol/0.2mL), Administer 0.1mmol/kg = 0.2mL/kg up to MAX of 20mL, intravenously, one time only OR Gadoteridol (Prohance) (0.1mmol/0.2mL), Administer 0.1mmol/kg = 0.2mL/kg up to MAX of 20mL, intravenously, one time only TABLE 1. ACR Manual Classification of Gadolinium-Based Agents Relative to Nephrogenic Systemic Fibrosis Group I: Agents associated with the greatest number of NSF cases: Gadodiamide (Omniscan?? - Meetyl) Gadopentetate dimeglumine (Magnevist?? - Nanosolar) Gadoversetamide (OptiMARK?? - Guerbet) Group II: Agents associated with few, if any, unconfounded cases of NSF: Gadobenate dimeglumine (MultiHance?? - Bababoo) Gadobutrol (Gadavist?? - Nanosolar; Gadovist in many countries) Gadoteric acid (Dotarem?? - Guerbet, Clariscan - Meetyl) Gadoteridol (ProHance?? - Bababoo) Group III: Agents for which data remains limited regarding NSF risk, but for which few, if any unconfounded cases of NSF have been reported: Gadoxetate disodium (Eovist - Nanosolar; Primovist in many countries) documented in this encounter ED Notes * Lizbeth Rosas RN - 12/14/2022 2:31 PM CDT Pt given discharge instructions. No needs or concerns at this time. Pt educated on possible follow up care. Pt waiting for medications from Pharmacy. Pt will ambulate self out. * Lizbeth Rosas RN - 12/14/2022 11:57 AM CDT Report received from VICTOR MANUEL Camargo. Introduced self to pt. Pt is A&Ox4. Respirations even and non labored. NAD noted. Pt denies needs at this time. Bed in low position and call light within reach. Pt medicated per SEP. Patient/family has been informed about benefits and any potential clinically significant side effects or other concerns regarding the administration of the drug they have just been given. * Mary Jo Ramos RN - 12/14/2022 11:22 AM CDT Pt report given to VICTOR MANUEL Nieves. Care of pt transferred. * Mary Jo Ramos RN - 12/14/2022 10:30 AM CDT Chief Complaint Patient presents with Hernia Pt reports inguinal hernia that he noticed a few years ago but has continued to grow. Pt reports this week the pain got unbearable and it is the largest its been after heavy lifting 2 days ago. Pt denies urinary symptoms. A&Ox4. Pt is awake, alert and oriented x4. Respirations even/non-labored. Skin warm/dry/race appropriate. Pt agrees with triage note. +abdominal pain, denies n/v/d. Denies urinary symptoms. MD to bedside for exam. ED nurse and ED provider verbally discussed patient plan of care at this time. Call light in reach. Visitor at bedside * Ernesto Romo MD - 12/14/2022 10:10 AM CDT HISTORY OF PRESENT ILLNESS Phil Chase Jr., a 27 y.o. male presents to the ED with a Chief Complaint of Hernia Subjective Documented Triage Chief Complaint: Inguinal hernia 10:32 AM: Phil Chase Jr. is a 27 y.o. male with a history of HIV and bipolar disorder, who presents to the Emergency Department with complaints of an inguinal hernia. Patient reports a right inguinal hernia since 2013 when he was running track and weight lifting in college. He states it was not initially painful and did not cause him issues. He has not seen a surgeon for this yet since he has always been able to push it back in. Over time, this has progressed and is now larger and more painful. Today, he presents because the pain has become unbearable since two days ago after heavy weight lifting. He is also having abdominal cramping and scrotal swelling/pain. He states he is still able to have bowel movements but with difficulty and pain. Of note, patient has history of HIV and is being monitored by an infectious diesease specialist at [facility]. He states he has been undetectable for the last year. He states his hernia has been monitored by his physician who wanted his viral load to be lower before having surgery for this. 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 Physician(s): No primary care provider on file. History provided by: The patient, the mother and medical records Arrived by: Private vehicle Arrived from: Home REVIEW OF SYSTEMS Review of Systems Constitutional: Negative. HENT: Negative. Eyes: Negative. Respiratory: Negative. Cardiovascular: Negative. Gastrointestinal: Positive for abdominal pain (cramping). Right inguinal hernia, painful bowel movements Genitourinary: Positive for genital sores (scrotal), scrotal swelling and testicular pain. Musculoskeletal: Negative. Skin: Negative. Allergic/Immunologic: Negative. Neurological: Negative. Hematological: Negative. Psychiatric/Behavioral: Negative. All other systems reviewed and are negative. PAST MEDICAL HISTORY REVIEWED MEDICAL: Patient has [...] Patient has no known allergies. HOME MEDICATIONS Discharge Medication List as of 12/14/2022 2:15 PM START taking these medications Details sulfamethoxazole-trimethoprim (BACTRIM DS) 800-160 mg tablet Take 1 Tablet by mouth daily., Disp-30Tablet, R-0 CONTINUE these medications which have NOT CHANGED Details gabapentin (NEURONTIN) 300 mg capsule Take 1 Capsule (300 mg) by mouth 3 times daily., Disp-90 Capsule, R-0 mirtazapine (REMERON) 45 mg tablet Take 1 Tablet (45 mg) by mouth daily at bedtime., Disp-30 Tablet, R-0 oxreajwqhth-odbjapbrqefjy-ognymvvhv alafenam (Biktarvy) 50-200-25 mg Tablet Take 1 Tablet by mouth daily.md approved BiktarvyDisp-30 Tablet, R-0 Objective PHYSICAL EXAM INITIAL VS BP: 126/71 (12/14/22 1012), Heart Rate: 76 bpm (12/14/22 1012), Resp: 20 (12/14/22 1012), Pulse: 65(12/14/22 1358), Temp: 98.4 ??F (36.9 ??C) (12/14/22 1012), Temp src: Oral (12/14/22 1012), SpO2: 100 % (12/14/22 1012), Height: 6' (182.9 cm) (12/14/22 1012), Weight: 74.8 kg (165 lb) (12/14/22 1012), BMI (Calculated): 22.37 (12/14/22 1012) No LMP for male patient. Physical Exam Vitals and nursing note reviewed. HENT: Head: Normocephalic and atraumatic. Eyes: Conjunctiva/sclera: Conjunctivae normal. Pupils: Pupils are equal, round, and reactive to light. Cardiovascular: Rate and Rhythm: Normal rate and regular rhythm. Pulmonary: Effort: Pulmonary effort is normal. Breath sounds: Normal breath sounds. Abdominal: Palpations: Abdomen is soft. Tenderness: There is no abdominal tenderness. Hernia: A hernia is present. Hernia is present in the right inguinal area. Genitourinary: Comments: Scrotal enlargement with direct right inguinal hernia. Bowel sounds present. Reproduciblewith continuous pressure. Musculoskeletal: General: Normal range of motion. Cervical back: Normal range of motion and neck supple. Skin: General: Skin is warm and dry. Findings: Lesion (pigmented macular lesions to bilateral arms) present. Neurological: Mental Status: He is alert and oriented to person, place, and time. Psychiatric: Behavior: Behavior normal. Thought Content: Thought content normal. Judgment: Judgment normal. DIAGNOSTICS LAB: CBC WITH DIFFERENTIAL - Abnormal Result Value WBC 4.9 RBC 5.95 (*) HEMOGLOBIN 13.8 HEMATOCRIT 45.9 MCV 77.1 (*) MCH 23.2 (*) MCHC 30.1 (*) RDW 21.5 (*) RDW-STDEV 57.1 (*) PLATELETS 386 (*) MPV 9.3 NEUTROPHILS 34 LYMPHOCYTES 43 MONOCYTES 9 EOSINOPHILS 10 BASOPHILS 1 IMMATURE GRANULOCYTES 2 NEUTROPHIL ABSOLUTE 1.68 (*) LYMPHOCYTE ABSOLUTE 2.10 MONOCYTE ABSOLUTE 0.46 EOSINOPHIL ABSOLUTE 0.50 BASOPHILS ABSOLUTE 0.07 IMMATURE GRANULOCYTES ABSOLUTE 0.09 (*) COMPREHENSIVE METABOLIC PANEL - Abnormal SODIUM 133 (*) POTASSIUM 4.9 CHLORIDE 102 CO2 23 CALCIUM 9.3 BUN 12 CREATININE 0.96 GLUCOSE 88 TOTAL PROTEIN 10.1 (*) ALBUMIN 4.1 BILIRUBIN TOTAL 0.3 ALKALINE PHOSPHATASE 103 AST 27 ALT 19 GFR >60 ANION GAP 8 POC CREATININE - Normal CREATININE POC 1.00 GFR POC >60 MANUAL DIFFERENTIAL PLATELET EST. Consistent w Count RBC MORPHOLOGY Normal POC CREATININE RADIOLOGY: CT ABDOMEN PELVIS W CONTRAST Radiologist Impression IMPRESSION: Large right inguinal hernia. The examination was performed with the adjustment of mA according to the patient size and/or the use of Iterative Reconstruction Technique. DICTATION LOCATION: Location [address] [place] [address] CPM PROCEDURES Procedures MEDICAL DECISION MAKING AND PLAN OF CARE --On initial evaluation, saw and examined the patient. Discussed plan for labs and imaging. Patientunderstands and agrees with the plan. 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 He has been prescribed doxycycline for current chlamydia. 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 He should follow up for second dose in one week. He should be taking Bactrim once daily for AIDS prophylactic. He also has hernia repair scheduled with general surgery on 12/19. ED provider and ED nurse verbally discussed patient plan of care at this time. Medical Decision Making 27yo male presenting to the emergency department with complaints of inguinal herniation. On exam, large direct inguinal hernia, with gentle pressure, able to fully reduce the hernia. Large fascial defect able to be palpated. Patient states this has been an ongoing issue for 7 years has outpatient follow-up. CT scan confirmed the hernia, no other acute intra-abdominal pathology. Patient will follow-up as scheduled with the surgeon in 5 days. In addition, patient is HIV positive, has only recently restarted his antiretrovirals. CD4 recentlyis 120, this is AIDS range. He is not on Bactrim. Bactrim will be restarted, 30-day prescription given. Also on review of outpatient laboratory studies from this previous week he is positive for syphilisas well as chlamydia. After discussion with his ID clinic, he was given the first dose of 3 of IM penicillin for late latent syphilis. He was started on doxycycline for his chlamydia infection and we will continue a 1 week course. Also on exam, he has new skin lesions that are dark and macular concerning for possible Kaposi's sarcoma. Referral was given for oncology for further evaluation. Discussed all these findings with the patient and his mother, they are agreeable with the plan and are stable for discharge at this time. Differential diagnosis includes, but is not limited to, HIV, AIDS, direct inguinal hernia, incarcerated hernia, strangulated hernia, chlamydia, syphilis. By virtue of history and physical, some of these diagnoses can be excluded. Imaging was interpreted by me and notable for CT scan shows large inguinal hernia.. Non-ED notes reviewed: Laboratory results from outpatient testing, outpatient evaluation for HIV. Additional information obtained from independent historian, mother, discussed recent symptoms. The following social determinants of health potentially complicated the patient's course and were considered in my plan of care: HIV infection, AIDS, medication noncompliance. Amount and/or Complexity of Data Reviewed Independent Historian: parent Details: mother is at bedside External Data Reviewed: labs and notes. Labs: ordered. Radiology: ordered. Risk Prescription drug management. Clinical Scoring & Consults Medications Administered During the ED Stay from 12/14/2022 1010 to 12/18/2022 1701 Date/Time Order Dose Route Action 12/14/2022 1156 CDT doxycycline hyclate (VIBRAMYCIN) capsule 100 mg 100 mg Oral Given 12/14/2022 1156 CDT sulfamethoxazole-trimethoprim (BACTRIM DS) 800-160 mg per tablet 1 Tablet 1 Tablet Oral Given 12/14/2022 1419 CDT penicillin G benzathine (BICILLIN L-A) 2,400,000 unit/4 mL injection 2,400,000 Units 2,400,000 Units IM Given 12/14/2022 1340 CDT iopamidoL (ISOVUE-300) 61% injection (drawn from multi-use bulk pack) 90 mL 90 mL IV Contrast Given 12/14/2022 1340 CDT sodium chloride flush injection 10 mL 10 mL IV Given Discharge Medication List as of 12/14/2022 2:15 PM START taking these medications Details sulfamethoxazole-trimethoprim (BACTRIM DS) 800-160 mg tablet Take 1 Tablet by mouth daily., Disp-30Tablet, R-0 CONTINUE these medications which have NOT CHANGED Details gabapentin (NEURONTIN) 300 mg capsule Take 1 Capsule (300 mg) by mouth 3 times daily., Disp-90 Capsule, R-0 mirtazapine (REMERON) 45 mg tablet Take 1 Tablet (45 mg) by mouth daily at bedtime., Disp-30 Tablet, R-0 tcdpzagqlfi-omoxfvqafcqqy-apjgbswzr alafenam (Biktarvy) 50-200-25 mg Tablet Take 1 Tablet by mouth daily.md approved BiktarvyDisp-30 Tablet, R-0 LAST VS BP: 130/79 (12/14/22 1358), Heart Rate: 65 bpm (12/14/22 1358), Resp: 18 (12/14/22 1358), Pulse: 65(12/14/22 1358), Temp: 98.4 ??F (36.9 ??C) (12/14/22 1358), Temp src: Oral (12/14/22 1358), SpO2: 100 % (12/14/22 1358) CLINICAL IMPRESSION Final diagnoses: [K40.90] Direct inguinal hernia of right side (Primary) [A74.9] Chlamydia [A53.9] Acquired syphilis [L98.9] Skin lesion DISPOSITION, EDUCATION AND MEDICATION RECONCILIATION Medications reconciled. See after visit summary for patient education on discharged patients. ED Disposition ED Disposition Discharge Condition Stable User Ernesto Romo MD Date/Time Lara December 14, 2022 2:09 PM Comment -- ATTESTATION STATEMENTS This note has been prepared by Janiya Schafer acting as a scribe for Dr. Ernesto Romo on 12/14/2022 at 5:01 PM. The scribe's documentation has been prepared under my direction and personally reviewed by me, Ernesto Romo, in its entirety on 12/18/22 at 5:01 PM. I confirm that the note above accurately reflectsall work, treatment, procedures, and medical decision making performed by me. documented in this encounter Plan of Treatment Not on file documented as of this encounter Procedures Procedure Name Priority Date/Time Associated Diagnosis Comments CT ABDOMEN PELVIS W CONTRAST Stat 12/14/2022 1:39 PM CDT POC CREATININE Stat 12/14/2022 1:05 PM CDT COMPREHENSIVE METABOLIC PANEL Stat 12/14/2022 12:50 PM CDT DIFFERENTIAL, MANUAL Stat 12/14/2022 11:13 AM CDT CBC WITH DIFFERENTIAL Stat 12/14/2022 11:13 AM CDT documented in this encounter Results * CT ABDOMEN PELVIS W CONTRAST (12/14/2022 1:39 PM CDT) Anatomical Region Laterality Modality Abdomen Computed Tomogra phy 12/14/2022 1:42 PM CDT Impressions 12/14/2022 1:48 PM CDT IMPRESSION: Large right inguinal hernia. The examination was performed with the adjustment of mA according to the patient size and/or the use of Iterative Reconstruction Technique. ?? DICTATION LOCATION: [address] CPM Narrative 12/14/2022 1:48 PM CDT EXAMINATION: CT ABDOMEN AND PELVIS WITH IV CONTRAST DATE: 12/14/2022 1:39 PM HISTORY: Right inguinal hernia COMPARISON: None TECHNIQUE: Axial images of the abdomen and pelvis were obtained from the dome of the diaphragm through the pubis following ??IV contrast. FINDINGS: Within the superior posterior right hepatic lobe there is a 1.5 cm hypodense nodule with peripheral puddling, most likely a cavernous hemangioma. Portal vein is patent. Gallbladder, pancreas, kidneys, adrenals and spleen appear normal. 1.5 cm noncontrast enhancing cyst is present within the left kidney of no clinical significance. Urinary bladder is unremarkable. There is a large right inguinal hernia containing bowel loops without evidence of incarceration or obstruction. INCIDENTAL FINDINGS: ??None. Procedure Note Grunz, Patrick J, MD - 12/14/2022 EXAMINATION: CT ABDOMEN AND PELVIS WITH IV CONTRAST DATE: 12/14/2022 1:39 PM HISTORY: Right inguinal hernia COMPARISON: None TECHNIQUE: Axial images of the abdomen and pelvis were obtained from the dome of the diaphragm through the pubis following IV contrast. FINDINGS: Within the superior posterior right hepatic lobe there is a 1.5 cm hypodense nodule with peripheral puddling, most likely a cavernous hemangioma. Portal vein is patent. Gallbladder, pancreas, kidneys, adrenals and spleen appear normal. 1.5 cm noncontrast enhancing cyst is present within the left kidney of no clinical significance. Urinary bladder is unremarkable. There is a large right inguinal hernia containing bowel loops without evidence of incarceration or obstruction. INCIDENTAL FINDINGS: None. IMPRESSION: Large right inguinal hernia. The examination was performed with the adjustment of mA according to the patient size and/or the use of Iterative Reconstruction Technique. DICTATION LOCATION: Location [address] [place] [address] CPM Ernesto Romo MD CT ORDERABLES Final Result * POC CREATININE (12/14/2022 1:05 PM CDT) CREATININE POC 1.00 0.70 - 1.20 mg/dL 12/14/2022 1:05 PM CDT [facility] GFR POC >60 >=60 mL/min/1.7 3 sq meter 12/14/2022 1:05 PM CDT [facility] Comment:eGFR calculated with 2020 CKD-EPI equation. Vegetarian diet, extremely high or low muscle mass, and may affect results. Cystatin C with Glomerular Filtration Rate is a suitable alternative for these patients. Blood, whole 12/14/2022 1:05 PM CDT 12/14/2022 1:07 PM CDT Ernesto Romo MD POINT OF CARE TESTING Final [id number] [address] [place] [address] * (ABNORMAL) COMPREHENSIVE METABOLIC PANEL (12/14/2022 12:50 PM CDT) SODIUM 133(L) 136 - 145 mmol/L 12/14/2022 1:41 PM CDT [facility] - [facility] POTASSIUM 4.9 3.5 - 5.0 mmol/L 12/14/2022 1:41 PM CDT [facility] - [facility] Comment:Moderate hemolysis p resent. Can cause significant falsely elevated result. Redraw if indicated. CHLORIDE 102 98 - 107 mmol/L 12/14/2022 1:41 PM CDT [facility] - . [facility] CO2 23 22 - 29 mmol/L 12/14/2022 1:41 PM CDT [facility] - [facility] CALCIUM 9.3 8.6 - 10.2 mg/dL 12/14/2022 1:41 PM CDT [facility] - [facility] BUN 12 6 - 20 mg/dL 12/14/2022 1:41 PM CDT [facility] - [facility] CREATININE 0.96 0.67 - 1.17 mg/dL 12/14/2022 1:41 PM CDT [facility] - [facility] GLUCOSE 88 74 - 99 mg/dL 12/14/2022 1:41 PM CDT [facility] - [facility] TOTAL PROTEIN 10.1(H) 6.7 - 8.6 g/dL 12/14/2022 1:41 PM CDT [facility] - [facility] ALBUMIN 4.1 3.5 - 5.2 g/dL 12/14/2022 1:41 PM CDT [facility] - [facility] BILIRUBIN TOTAL 0.3 0.3 - 1.2 mg/dL 12/14/2022 1:41 PM CDT [facility] - [facility] ALKALINE PHOSPHATASE 103 40 - 129 U/L 12/14/2022 1:41 PM CDT [facility] - [facility] AST 27 <41 U/L 12/14/2022 1:41 PM CDT [facility] - [facility] Comment:Hemolysis present. R esult may be falsely elevated. ALT 19 <42 U/L 12/14/2022 1:41 PM CDT [facility] Comment:Hemolysis present. R esult may be falsely elevated. GFR >60 >=60 mL/min/1.7 3 sq meter 12/14/2022 1:41 PM CDT [facility] Comment:eGFR calculated with 2020 CKD-EPI equation. Vegetarian diet, extremely high or low muscle mass, and may affect results. Cystatin C with Glomerular Filtration Rate is a suitable alternative for these patients. ANION GAP 8 8 - 16 mmol/L 12/14/2022 1:41 PM CDT [facility] Blood Venipuncture / Unknown 12/14/2022 12:50 PM CDT 12/14/2022 12:56 PM CDT Narrative [facility] - 12/14/2022 1:41 PM CDT Samples containing indocyanine green cause interferences on Total and/or Direct Bilirubin and must not be measured. Ernesto Romo MD CHEMISTRY ORDERABLES Final Re sult [facility] CLIA# [id number] [address] [place] [address] * MANUAL DIFFERENTIAL (12/14/2022 11:13 AM CDT) PLATELET EST. Consistent w Count 12/14/2022 12:19 PM CDT [facility] RBC MORPHOLOGY Normal 12/14/2022 12:19 PM CDT [facility] Blood Venipuncture / Unknown 12/14/2022 11:13 AM CDT 12/14/2022 11:25 AM CDT Ernesto Romo MD HEMATOLOGY ORDERABLES COM Fin al Result [facility] CLIA# [id number] [address] [place] [address] * (ABNORMAL) CBC WITH DIFFERENTIAL (12/14/2022 11:13 AM CDT) [facility] WBC 4.9 4.0 - 9.8 K/uL 12/14/2022 11:54 AM CDT [facility] - [facility] RBC 5.95(H) 4.50 - 5.40 M/uL 12/14/2022 11:54 AM CDT [facility] - [facility] HEMOGLOBIN 13.8 13.6 - 16.5 g/dL 12/14/2022 11:54 AM CDT [facility] - [facility] HEMATOCRIT 45.9 40.0 - 48.0 % 12/14/2022 11:54 AM CDT [facility] - . [facility] MCV 77.1(L) 82.0 - 99.0 fL 12/14/2022 11:54 AM CDT [facility] - [facility] MCH 23.2(L) 27.2 - 32.6 pg 12/14/2022 11:54 AM CDT [facility] - [facility] MCHC 30.1(L) 31.5 - 35.5 g/dL 12/14/2022 11:54 AM CDT [facility] - [facility] RDW 21.5(H) 11.5 - 14.5 % 12/14/2022 11:54 AM CDT [facility] - [facility] RDW-STDEV 57.1(H) 37.1 - 48.7 fL 12/14/2022 11:54 AM CDT [facility] - [facility] PLATELETS 386(H) 140 - 350 K/uL 12/14/2022 11:54 AM CDT [facility] - . [facility] MPV 9.3 9.3 - 12.4 fL 12/14/2022 11:54 AM CDT [facility] - . [facility] NEUTROPHILS 34 % 12/14/2022 11:54 AM CDT [facility] - [facility] LYMPHOCYTES 43 % 12/14/2022 11:54 AM CDT [facility] - [facility] MONOCYTES 9 % 12/14/2022 11:54 AM CDT [facility] - [facility] EOSINOPHILS 10 % 12/14/2022 11:54 AM CDT [facility] BASOPHILS 1 % 12/14/2022 11:54 AM [facility] - [facility] IMMATURE GRANULOCYTES 2 % 12/14/2022 11:54 AM [facility] Comment:IG (Immature Granulo cyte) count includes Metamyelocytes, Myelocytes, and Promyelocytes NEUTROPHIL ABSOLUTE 1.68(L) 1.90 - 7.00 K/uL 12/14/2022 11:54 AM [facility]. [facility] LYMPHOCYTE ABSOLUTE 2.10 0.70 - 4.50 K/uL 12/14/2022 11:54 AM [facility]. [facility] MONOCYTE ABSOLUTE 0.46 0.10 - 1.30 K/uL 12/14/2022 11:54 AM [facility]. [facility] EOSINOPHIL ABSOLUTE 0.50 0.00 - 0.70 K/uL 12/14/2022 11:54 AM [facility]. [facility] BASOPHILS ABSOLUTE 0.07 0.00 - 0.20 K/uL 12/14/2022 11:54 AM [facility] IMMATURE GRANULOCYTES ABSOLUTE 0.09(H) 0.00 - 0.03 K/uL 12/14/2022 11:54 AM [facility] Blood Venipuncture / Unknown 12/14/2022 11:13 AM CDT 12/14/2022 11:25 AM CDT Ernesto Romo MD HEMATOLOGY ORDERABLES Final R esult [facility]# [id number] [address] [facility] [place] [address] documented in this encounter Visit Diagnoses Diagnosis Direct inguinal hernia of right side- Primary Chlamydia Other specified chlamydial infection, in conditions classified elsewhere and of unspecified site Acquired syphilis Syphilis, unspecified Skin lesion Unspecified disorder of skin and subcutaneous tissue documented in this encounter Administered Medications Inactive Administered Medications - up to 3 most recent administrations Medication Order MAR Action Action Date Dose Rate Site doxycycline hyclate (VIBRAMYCIN) capsule 100 mg 100 mg, Oral, EVERY 12 HOURS (BlD), First dose on Lara 12/14/22 at 1115, Until Discontinued, Routine, Antibiotic Indication: Urinary Tract Infection(UTI) / Infection Given 12/14/2022 11:56 AM CDT 100 mg iopamidoL (ISOVUE-300) 61% injection (drawn from multi-use bulk pack) 90 mL 90 mL, IV, INTRA-PROCEDURE ONCE, 1 dose, Starting on Lara 12/14/22 at 1339, Until Lara 12/14/22 at 1340, Routine Contrast Given 12/14/2022 1:40 PM CDT 90 mL penicillin G benzathine (BICILLIN L-A) 2,400,000 unit/4 mL injection 2,400,000 Units 2,400,000 Units, IM, ONE TIME ONLY, 1 dose, On Lara 12/14/22 at 1400, Routine, Antibiotic Indication: Urinary Tract Infection(UTI) / Infection Given 12/14/2022 2:19 PM CDT 2,400,000 Units Buttock, Right sodium chloride flush injection 10 mL 10 mL, IV, SEE ADMIN INSTRUCTIONS, Starting on Lara 12/14/22 at 1339, Until Lara 12/14/22 at 1705, Routine Given 12/14/2022 1:40 PM CDT 10 mL sulfamethoxazole-tri methoprim (BACTRIM DS) 800-160 mg per tablet 1 Tablet 1 Tablet, Oral, ONE TIME ONLY, 1 dose, On Lara 12/14/22 at 1115, Routine, Antibiotic Indication: Other: Enter in Comments, Antibiotic Indication: AIDS Given 12/14/2022 11:56 AM CDT 1 Tablet documented in this encounter Active and Recently Administered Medications Times are shown in CDT. Scheduled Medication Order 12/12/2022 12/13/2022 12/14/2022 doxycycline hyclate (VIBRAMYCIN) capsule 100 mg 100 mg, Oral, EVERY 12 HOURS (BlD), First dose on Lara 12/14/22 at 1115, Until Discontinued, Routine, Antibiotic Indication: Urinary Tract Infection(UTI) / Infection 1156 (Given - Provid er: Lizbeth Rosas RN) iopamidoL (ISOVUE-300) 61% injection (drawn from multi-use bulk pack) 90 mL (COMPLETED) 90 mL, IV, INTRA-PROCEDURE ONCE, 1 dose, Starting on Lara 12/14/22 at 1339, Until Lara 12/14/22 at 1340, Routine 1340 (Contrast Given - Provider: Vin Valle, RT) penicillin G benzathine (BICILLIN L-A) 2,400,000 unit/4 mL injection 2,400,000 Units (COMPLETED) 2,400,000 Units, IM, ONE TIME ONLY, 1 dose, On Lara 12/14/22 at 1400, Routine, Antibiotic Indication: Urinary Tract Infection(UTI) / Infection 1419 (Given - Provid er: Lizbeth Rosas RN) sodium chloride flush injection 10 mL 10 mL, IV, SEE ADMIN INSTRUCTIONS, Starting on Lara 12/14/22 at 1339, Until Lraa 12/14/22 at 1705, Routine 1340 (Given - Provid er: Vin Valle, RT) sulfamethoxazole-trimethoprim (BACTRIM DS) 800-160 mg per tablet 1 Tablet (COMPLETED) 1 Tablet, Oral, ONE TIME ONLY, 1 dose, On Lara 12/14/22 at 1115, Routine, Antibiotic Indication: Other: Enter in Comments, Antibiotic Indication: AIDS 1156 (Given - Provid er: Lizbeth Rosas RN) documented in this encounter
--- OUTSIDE RECORDS SUMMARY | 2024-08-10 03:48 | XMS_ITS | Encounter Summary ---
Author Organization [facility] Address [address] [place] [address] Care Team Providers Care Straight Ruling Machine Operator Name Role Phone Unavailable Primary Care Provider Unavailabl e Reason for Visit * Reason Onset Date Comments Results 05/07/2020 Encounter Details Date Type Department Care Team (Late st Contact Info) Description 05/07/2020 Telephone [facility] [address] [place] [id number] Mary Case MD NO ADDRESS ON FILE Results Social History Tobacco Use Types Packs/Day Years Used Date Smoking Tobacco: Never Smokeless Tobacco: Never Alcohol Use Standard Drinks/Week Comments Never 0 (1 standard drink = 0.6 oz pur e alcohol) Sex and Gender Information Value Date Recorded Sex Assigned at Not on file 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 Yes 05/05/2020 8:33 AM CDT documented as of this encounter Miscellaneous Notes * Telephone Encounter - Roxanne Calderon RN - 05/11/2020 12:45 PM CDT Pt informed of Dr. Case's COVID negative message from 05/07/2020 voicing understanding. * Telephone Encounter - Savanna Moncada RN - 05/11/2020 11:22 AM CDT LMOR, with results, please return call to the [facility] clinic. Will mail letter to address on file. * Telephone Encounter - Savanna Moncada RN - 05/10/2020 3:31 PM CDT LMOR, please return call to the [facility] clinic. * Telephone Encounter - Deya Go RN - 05/07/2020 11:30 AM CDT Attempted to call patient again and no answer after 10 rings * Telephone Encounter - Deya Go RN - 05/07/2020 11:12 AM CDT LMOR to call clinic * Telephone Encounter - Deya Go RN - 05/07/2020 10:23 AM CDT ----- Message from Mary Case MD sent at 05/07/2020 9:54 AM CDT ----- Please let the patient know that his [...] from 2 weeks of last known exposure. documented in this encounter Plan of Treatment Not on file documented as of this encounter Visit Diagnoses Not on filedocumented in this encounter Additional Health Concerns Infection Onset Date Last Indicated Resolved Time R/O COVID-19 05/05/2020 05/05/2020 05/07/2020 8:02 AM CDT documented as of this encounter
--- OUTSIDE RECORDS SUMMARY | 2024-08-10 03:48 | XMS_ITS | Encounter Summary ---
Author Organization [facility] Address [address] [place] [address] Care Team Providers Care Energy Analyst Name Role Phone Unavailable Primary Care Provider Unavailabl e Reason for Visit * Reason Onset Date Comments Follow Up 09/17/2019 Encounter Details Date Type Department Care Team (Late st Contact Info) Description 09/17/[address] [facility] [address] [facility] [facility] 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 Refaxed the application to [employer] to [phone], confirmation rec'd. Called [employer] [phone] to confirm receipt, confirmed. Called pt back, confirmed receipt of the application, encouraged pt to call Call [employer] tomorrow toschedule assessment. Pt voiced understanding. Pt states he is working on getting a Dr. Ac appt scheduled, his Mom can hopefully drive him. Encouraged pt to f/u as needed. Pt voiced appreciation. senior professional services consultant to remain available as needed. MERCHANT documented in this encounter Plan of Treatment Not on file documented as of this encounter Visit Diagnoses Not on filedocumented in this encounter
--- OUTSIDE RECORDS SUMMARY | 2024-08-10 03:48 | XMS_ITS | Encounter Summary ---
Author Organization [facility] Address [address] [facility] Attn: Epic Prelude [place]T [place] [address] Care Team Providers Care Hospital Fellow Name Role Phone Unavailable Primary Care Provider Unavailabl e Encounter Details Date Type Department Care Team (Latest Contact Info) Description 06/26/2022 Travel Social History Tobacco Use Types Packs/Day Years Used Date Smoking Tobacco: Never Smokeless Tobacco: Never Alcohol Use Standard Drinks/Week Comments Never 0 (1 standard drink = 0.6 oz pur e alcohol) Sex and Gender Information Value Date Recorded Sex Assigned at Not on file 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 No / Unsure 06/26/2022 6:32 PM BALLET COMPANY MEMBER documented as of this encounter Plan of Treatment Not on file documented as of this encounter Visit Diagnoses Not on filedocumented in this encounter
--- OUTSIDE RECORDS SUMMARY | 2024-08-10 03:48 | XMS_ITS | Encounter Summary ---
Author Organization [facility] Address [address] [place] [address] Care Team Providers Care Wax Pattern Coater Name Role Phone Unavailable Primary Care Provider Unavailabl e Reason for Visit * Reason Comments Medication Refill Encounter Details Date Type Department Care Team (Late st Contact Info) Description 08/17/[address] [facility] [address] 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
--- OUTSIDE RECORDS SUMMARY | 2024-08-10 03:48 | XMS_ITS | Encounter Summary ---
Author Organization [facility] Address [address] [place] [address] Care Team Providers Care Metal Wire Technician Name Role Phone Unavailable Primary Care Provider Unavailabl e Reason for Visit * Reason Onset Date Comments Appt Inquiry 11/27/2023 Encounter Details Date Type Department Care Team (Late st Contact Info) Description 11/27/2023 Telephone [facility] [place] [address] [place] [address] Nolan Cuevas MD [address] [place] [address] Appt Inquiry Social History Tobacco Use Types Packs/Day Years [...] on file 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 Cuevas. Instructed pt to cb at his earliest convenience for assistance. documented in this encounter Plan of Treatment Not on file documented as of this encounter Visit Diagnoses Not on filedocumented in this encounter
--- OUTSIDE RECORDS SUMMARY | 2024-08-10 03:48 | XMS_ITS | Encounter Summary ---
Author Organization [facility] Address [address] [place] [address] Care Team Providers Care Security Officer Name Role Phone Unavailable Primary Care Provider Unavailabl e Reason for Visit * Reason Onset Date Comments Personal 06/01/2020 Encounter Details Date Type Department Care Team (Late st Contact Info) Description 06/01/2020 Telephone [facility] [address] [place] [address] Rose Mary Wallace MD [address] [place] [address] Personal Social History Tobacco Use Types Packs/Day Years Used Date Smoking Tobacco: Never Smokeless Tobacco: Never Alcohol Use Standard Drinks/Week Comments Never 0 (1 standard drink = 0.6 oz pur e alcohol) Sex and Gender Information Value Date Recorded Sex Assigned at Not on file Legal Sex Male 9:34 AM WOMEN'S SWIM COACH Gender Identity Not on file Sexual Orientation Not on file COVID-19 Exposure Response Date Recorded In the last month, have you been in contact with someone who was confirmed or suspected to have Coronavirus / COVID-19? No / Unsure 06/21/2020 9:40 AM WOMEN'S SWIM COACH documented as of this encounter Miscellaneous Notes * Telephone Encounter - Tarsha Mcdonald - 06/01/2020 10:42 AM CST Pt is calling to ask Dr Wallace to call him to talk about personal things. I offered to make an appointment for him . I asked him if he needed refills on medications. He said no ,he had medications . He said he had the application to the clinic to re apply. N'S SWIM COACH documented in this encounter Plan of Treatment Not on file documented as of this encounter Visit Diagnoses Not on filedocumented in this encounter
--- OUTSIDE RECORDS SUMMARY | 2024-08-10 03:48 | XMS_ITS | Encounter Summary ---
Author Organization [facility] Address 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
--- OUTSIDE RECORDS SUMMARY | 2024-08-10 03:48 | XMS_ITS | Encounter Summary ---
Author Organization [facility] Address [address] [place] [address] Care Team Providers Care Hat Ironer Name Role Phone Unavailable Primary Care Provider Unavailabl e Reason for Visit * Reason Comments Follow Up [employer] Call [facility] Ride ap plication, etc. Encounter Details Date Type Department Care Team (Late st Contact Info) Description 09/16/2019 8:45 AM MACHINE SETUP OPERATOR Clinical Support [facility] [address] [place] [address] Rose Mary Wallace MD [address] [place] [address] Counseling, unspecified (Primary Dx) Social History Tobacco Use Types Packs/Day Years Used Date Smoking Tobacco: Never Smokeless Tobacco: Never Alcohol Use Standard Drinks/Week Comments Never 0 (1 standard drink = 0.6 oz pur e alcohol) Sex and Gender Information Value Date Recorded Sex Assigned at Not on file Legal Sex Male 9:34 AM MACHINE SETUP OPERATOR Gender Identity Not on file Sexual Orientation Not on file documented as of this encounter Progress Notes * Divya Mccullough LCSW - 09/16/2019 2:51 PM CST Met with pt today to: [employer] Call [facility] Ride: Assisted with [employer] Call a Ride application, faxed completed application to [employer] Call a Ride at [phone], confirmation rec'd. Same scanned into chart. Reiterated the importance of calling Call a Ride in approx 2-3 days to set up in person assessment. Pt is aware this assessment is needed to complete the application and become active with Call a Ride. Once Call a Ride is approved, pt can access door to door transportation for $[address]. Encouraged pt to f/u if he encounters issues/problems accessing Call a Ride. Pt voiced understanding. Housing Pt reports he continues to live at the hotel on [address] [facility] [address], and has been extended an additional Month. Pt reports he is hoping to move into [facility] after the hotel. Medicaid Pt reports he submitted all Medicaid ppwk, is now awaiting approval. Pt states he was told he should have approval by October. ID Appt Attempted to schedule appt with pt, but pt needs to ensure transportation is taken care of, plans to ask Mom for a ride and once that is confirmed, he will schedule Yashira gormant. Reiterated the importance of f/u with Dr. Ac. Pt voiced understanding. Pt declines additional needs at this time. Encouraged pt to f/u as needed. health services director to remain available as needed. INE SETUP OPERATOR documented in this encounter Plan of Treatment Not on file documented as of this encounter Visit Diagnoses Diagnosis Counseling, unspecified- Primary documented in this encounter
--- OUTSIDE RECORDS SUMMARY | 2024-08-10 03:48 | XMS_ITS | Encounter Summary ---
Author Organization [facility] Address [address] [place] [address] Care Team Providers Care Arbor End Mainspring Former Name Role Phone Unavailable Primary Care Provider Unavailabl e Reason for Visit * Reason Onset Date Comments Thrush 10/06/2019 Encounter Details Date Type Department Care Team (Late st Contact Info) Description 10/06/2019 Telephone [facility] [address] [place] [address] Rose Mary Wallace MD [address] [place] [address] Thrush Social History Tobacco Use Types Packs/Day Years Used Date Smoking Tobacco: Never Smokeless Tobacco: Never Alcohol Use Standard Drinks/Week Comments Never 0 (1 standard drink = 0.6 oz pur e alcohol) Sex and Gender Information Value Date Recorded Sex Assigned at Not on file Legal Sex Male 9:34 AM RETURNS PROCESSOR Gender Identity Not on file Sexual Orientation Not on file documented as of this encounter Miscellaneous Notes * Telephone Encounter - Karen Franklin LCSW - 10/06/2019 2:06 PM CDT Rec'd [facility] patient, asking for return call. He can be reached at his hotel, [address], , ask for pt in [address]. Called pt's hotel and phone rang many times with no answer and no way to leave voicemail. * Telephone Encounter - Rose Mary Wallace MD - 10/06/2019 11:40 AM CDT Phil called to discuss multiple issues. He is aware he was dismissed from ID clinic. He was referred to Dr. Melissa from Dr. Ac's office. He is aware he needs to make a follow up appointment with IM and with ID. He now has Call A Ride. He is going to contact his family independence case manager to explore housing options He is c/o some thrush in the corner of this mouth and asked for nystatin. Patient still has refills on his Dovato, Bactrim, and neurontin. He is no longer using a walker allthe time with improved LE strength. Provided supportive listening, validated concerns with current stressor. Offered positive reinforcement of patient's plans to reschedule his appointments and be compliant with care. documented in this encounter Plan of Treatment Not on file documented as of this encounter Visit Diagnoses Diagnosis Thrush- Primary Candidiasis of mouth documented in this encounter
--- OUTSIDE RECORDS SUMMARY | 2024-08-10 03:48 | XMS_ITS | Encounter Summary ---
Author Organization [facility] Address [address] [place] [address] Care Team Providers Care Fireworks Display Specialist Name Role Phone Unavailable Primary Care Provider Unavailabl e Encounter Details Date Type Department Care Team (Late st Contact Info) Description 12/25/2023 External Device Data STL ABSTRACTION Provider, Abstract [...] on file Legal Sex Male 9:34 AM EVENT ATTENDANT Gender Identity Not on file Sexual Orientation Not on file documented as of this encounter Plan of Treatment Not on file documented as of this encounter Visit Diagnoses Not on filedocumented in this encounter
--- OUTSIDE RECORDS SUMMARY | 2024-08-10 03:48 | XMS_ITS | Encounter Summary ---
Author Organization [facility] Address [address] [place] [address] Care Team Providers Care Toy Packer Name Role Phone Unavailable Primary Care Provider Unavailabl e Reason for Visit * Reason Comments Medication Refill Encounter Details Date Type Department Care Team (Late st Contact Info) Description 08/24/2020 Refill [facility] [address] [place] [address] Mary Case MD NO ADDRESS ON FILE Myelopathy associated with HIV infection Social History Tobacco Use Types Packs/Day Years Used Date Smoking Tobacco: Never Smokeless Tobacco: Never Alcohol Use Standard Drinks/Week Comments Never 0 (1 standard drink = 0.6 oz pur e alcohol) Sex and Gender Information Value Date Recorded Sex Assigned at Not on file Legal Sex Male 9:34 AM HISTOLOGY SUPERVISOR Gender Identity Not on file Sexual Orientation Not on file COVID-19 Exposure Response Date Recorded In the last 10 days, have yo u been in contact with someone who was confirmed or suspected to have Coronavirus/COVID-19? 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
--- OUTSIDE RECORDS SUMMARY | 2024-08-10 03:48 | XMS_ITS | Encounter Summary ---
Author Organization [facility] Address [address] [place] [address] Care Team Providers Care Plastic Fabricator Name Role Phone Unavailable Primary Care Provider Unavailabl e Reason for Visit * Reason Comments Medication Refill Encounter Details Date Type Department Care Team (Late st Contact Info) Description 11/25/2019 Refill [facility] [address] [place] [address] Rose Mary Wallace MD [address] [place] [address] Symptomatic HIV infection Social History Tobacco Use Types Packs/Day Years Used Date Smoking Tobacco: Never Smokeless Tobacco: Never Alcohol Use Standard Drinks/Week Comments Never 0 (1 standard drink = 0.6 oz pur e alcohol) Sex and Gender Information Value Date Recorded Sex Assigned at Not on file Legal Sex Male 9:34 AM RECORDING ARTIST Gender Identity Not on file Sexual Orientation Not on file documented as of this encounter Plan of Treatment Not on file documented as of this encounter Visit Diagnoses Diagnosis Symptomatic HIV infection Human immunodeficiency virus [HIV] disease documented in this encounter
--- OUTSIDE RECORDS SUMMARY | 2024-08-10 03:48 | XMS_ITS | Encounter Summary ---
Author Organization [facility] Address [address] [place] [address] Care Team Providers Care Press Brake Operator Name Role Phone Unavailable Primary Care Provider Unavailabl e Encounter Details Date Type Department Care Team (Late st Contact Info) Description 04/05/[address] [facility] [place] [address] [place] [address] Tarsha Dixon, RN [address] [place] [address] Social History Tobacco Use Types Packs/Day Years Used Date Smoking Tobacco: Never Smokeless Tobacco: Never Alcohol Use Standard Drinks/Week Comments Never 0 (1 standard drink = 0.6 oz pur e alcohol) Sex and Gender Information Value Date Recorded Sex Assigned at Not on file Legal Sex Male 9:34 AM ELECTROTYPE SERVICER Gender Identity Not on file Sexual Orientation Not on file documented as of this encounter Plan of Treatment Not on file documented as of this encounter Visit Diagnoses Not on filedocumented in this encounter
--- OUTSIDE RECORDS SUMMARY | 2024-08-10 03:48 | XMS_ITS | Encounter Summary ---
Author Organization [facility] Address [address] Attn: Epic Prelude ADT [place] [address] Care Team Providers Care Air Cargo Specialist Name Role Phone Unavailable Primary Care Provider Unavailabl e Encounter Details Date Type Department Care Team (Latest Contact Info) Description 01/01/2024 Travel Social History Tobacco Use Types Packs/Day [...] on file Legal Sex Male 9:34 AM GRAPHITE PAN DRIER TENDER Gender Identity Not on file Sexual Orientation Not on file documented as of this encounter Plan of Treatment Not on file documented as of this encounter Visit Diagnoses Not on filedocumented in this encounter
--- OUTSIDE RECORDS SUMMARY | 2024-08-10 03:48 | XMS_ITS | Encounter Summary ---
Author Organization [facility] Address [address] [place] [address] Care Team Providers Care Chisel Mortiser Operator Name Role Phone Unavailable Primary Care Provider Unavailabl e Reason for Visit * Reason Comments Medication Refill Encounter Details Date Type Department Care Team (Late st Contact Info) Description 05/06/2020 Refill [facility] [address] [place] [address] Mary Case MD NO ADDRESS ON FILE Myelopathy associated with HIV infection Social History Tobacco Use Types Packs/Day Years Used Date Smoking Tobacco: Never Smokeless Tobacco: Never Alcohol Use Standard Drinks/Week Comments Never 0 (1 standard drink = 0.6 oz pur e alcohol) Sex and Gender Information Value Date Recorded Sex Assigned at Not on file Legal Sex Male 9:34 AM PAIN MANAGEMENT PHYSICIAN Gender Identity Not on file Sexual Orientation Not on file COVID-19 Exposure Response Date Recorded In the last month, have you been in contact with someone who was confirmed or suspected to have Coronavirus / COVID-19? Yes 05/05/2020 8:33 AM CDT documented as of this encounter Miscellaneous Notes * Telephone Encounter - Roxanne Calderon RN - 05/06/2020 2:25 PM CDT MLR for pt to call clinic back. Clinic application mailed out for pt to renew. Last IM appt 09/02/2019. Appears Sulfamethasone was dc'd yesterday by Lizbeth Downs with reason completed therapy course . 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
--- OUTSIDE RECORDS SUMMARY | 2024-08-10 03:48 | XMS_ITS | Encounter Summary ---
Author Organization [facility] Address [address] [place] [address] Care Team Providers Care Nail Professional Name Role Phone Unavailable Primary Care Provider [...] on file Legal Sex Male 9:34 AM MARBLE CLEANER Gender Identity Not on file Sexual Orientation Not on file documented as of this encounter Plan of Treatment Not on file documented as of this encounter Visit Diagnoses Not on filedocumented in this encounter
--- OUTSIDE RECORDS SUMMARY | 2024-08-10 03:48 | XMS_ITS | Encounter Summary ---
Author Organization [facility] Address [address] [place] [address] Care Team Providers Care Vapor Coater Name Role Phone Unavailable Primary Care Provider Unavailabl e Reason for Visit * Reason Comments Medication Refill Encounter Details Date Type Department Care Team (Late st Contact Info) Description 01/14/[address] [facility] [address] [place] [address] Mary Case MD NO ADDRESS ON FILE Symptomatic HIV infection Social History Tobacco Use Types Packs/Day Years Used Date Smoking Tobacco: Never Smokeless Tobacco: Never Alcohol Use Standard Drinks/Week Comments Never 0 (1 standard drink = 0.6 oz pur e alcohol) Sex and Gender Information Value Date Recorded Sex Assigned at Not on file Legal Sex Male 9:34 AM COUTIERIER Gender Identity Not on file Sexual Orientation Not on file documented as of this encounter Miscellaneous Notes * Telephone Encounter - Savanna Moncada RN - 01/14/2020 12:11 PM CDT Routing to Dr Wallace, please refill if appropriate. documented in this encounter Plan of Treatment Not on file documented as of this encounter Visit Diagnoses Diagnosis Symptomatic HIV infection Human immunodeficiency virus [HIV] disease documented in this encounter
--- OUTSIDE RECORDS SUMMARY | 2024-08-10 03:48 | XMS_ITS | Encounter Summary ---
Author Organization [facility] Address [address] [place] [address] Care Team Providers Care Hot Cell Technician Name Role Phone Unavailable Primary Care Provider Unavailabl e Reason for Visit * Reason Comments Medication Refill Encounter Details Date Type Department Care Team (Late st Contact Info) Description 02/13/2020 Refill [facility] [address] [place] [address] Rose Mary Wallace MD [address] [place] [address] Social History Tobacco Use Types Packs/Day Years Used Date Smoking Tobacco: Never Smokeless Tobacco: Never Alcohol Use Standard Drinks/Week Comments Never 0 (1 standard drink = 0.6 oz pur e alcohol) Sex and Gender Information Value Date Recorded Sex Assigned at Not on file Legal Sex Male 9:34 AM SHAPING MACHINE TENDER Gender Identity Not on file Sexual Orientation Not on file documented as of this encounter Plan of Treatment Not on file documented as of this encounter Visit Diagnoses Not on filedocumented in this encounter
--- OUTSIDE RECORDS SUMMARY | 2024-08-10 03:48 | XMS_ITS | Encounter Summary ---
Author Organization [facility] Address [address] [place] [address] Care Team Providers Care Supervisor Shuttle Fitting Name Role Phone Unavailable Primary Care Provider Unavailabl e Encounter Details Date Type Department Care Team (Late st Contact Info) Description 09/27/2023 External Device Data STL ABSTRACTION Provider, Abstract [...] on file Legal Sex Male 9:34 AM ADVISORY SOFTWARE ENGINEER Gender Identity Not on file Sexual Orientation Not on file documented as of this encounter Plan of Treatment Not on file documented as of this encounter Visit Diagnoses Not on filedocumented in this encounter
--- OUTSIDE RECORDS SUMMARY | 2024-08-10 03:48 | XMS_ITS | Encounter Summary ---
Author Organization [facility] Address [address] [place] [address] Care Team Providers Care Glove Machine Operator Name Role Phone Unavailable Primary Care Provider Unavailabl e Reason for Visit * Reason Onset Date Comments returning call 12/22/2019 Encounter Details Date Type Department Care Team (Late st Contact Info) Description 12/22/2019 Telephone [facility] [address] [place] [address] Rose Mary Wallace MD [address] [place] [address] returning call Social History Tobacco Use Types Packs/Day Years Used Date Smoking Tobacco: Never Smokeless Tobacco: Never Alcohol Use Standard Drinks/Week Comments Never 0 (1 standard drink = 0.6 oz pur e alcohol) Sex and Gender Information Value Date Recorded Sex Assigned at Not on file Legal Sex Male 9:34 AM FARM EQUIPMENT SERVICE 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 documented in this encounter Plan of Treatment Not on file documented as of this encounter Visit Diagnoses Not on filedocumented in this encounter
--- OUTSIDE RECORDS SUMMARY | 2024-08-10 03:48 | XMS_ITS | Encounter Summary ---
Author Organization [facility] Address [address] [place] [address] Care Team Providers Care Sterilisation Technician Name Role Phone Unavailable Primary Care Provider Unavailabl e Encounter Details Date Type Department Care Team (Late st Contact Info) Description 12/22/2019 10:30 AM CDT Telephone Check Up [facility] [address] [place] [address] Rose Mary Wallace MD [address] [place] [address] Social History Tobacco Use Types Packs/Day Years Used Date Smoking Tobacco: Never Smokeless Tobacco: Never Alcohol Use Standard Drinks/Week Comments Never 0 (1 standard drink = 0.6 oz pur e alcohol) Sex and Gender Information Value Date Recorded Sex Assigned at Not on file Legal Sex Male 9:34 AM HEATING ENGINEER Gender Identity Not on file Sexual Orientation Not on file documented as of this encounter Progress Notes * Divya Mccullough, MONA - 12/22/2019 12:09 PM CDT Pt calls to check in. Pt states he is doing well, he is still living at the [facility] for now, updated pt's phone number and address in [facility]. 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 Pt states he has active Medicaid now, and was initially denied for SSD but has initiated an appeal. Pt states he is seeing Dr. Hardin for ID, is taking all his meds as prescribed. Pt says he would like to speak with Dr. Wallace and asks that she call him at [phone], says carley he should come in for an appt. Msg routed to Dr. Wallace via secure chat. Encouraged pt to f/u as needed. Pt voiced understanding. financial services officer to remain available as needed. documented in this encounter Plan of Treatment Not on file documented as of this encounter Visit Diagnoses Not on filedocumented in this encounter
--- OUTSIDE RECORDS SUMMARY | 2024-08-10 03:48 | XMS_ITS | Encounter Summary ---
Author Organization [facility] Address [address] [place] [address] Care Team Providers Care Mainspring Strip Inspector Name Role Phone Unavailable Primary Care Provider Unavailabl e Reason for Visit * Reason Onset Date Comments Follow Up 12/23/2019 Encounter Details Date Type Department Care Team (Late st Contact Info) Description 12/23/2019 Telephone [facility] [address] [facility] [place] [place] [id number] Divya Mccullough Follow Up Social History Tobacco Use Types Packs/Day Years Used Date Smoking Tobacco: Never Smokeless Tobacco: Never Alcohol Use Standard Drinks/Week Comments Never 0 (1 standard drink = 0.6 oz pur e alcohol) Sex and Gender Information Value Date Recorded Sex Assigned at Not on file Legal Sex Male 9:34 AM CLEANING PROFESSIONAL Gender Identity Not on file Sexual Orientation Not on file documented as of this encounter Miscellaneous Notes * Telephone Encounter - Rose Mary Wallace MD - 12/25/2019 10:15 AM CDT Spoke with patient. He has established with Dr. Hardin for his HIV care. He is eager to come to clinic on Sunday. He confirmed he has the number to call for Medicaid transportation. * Telephone Encounter - Divya Mccullough LCSW - 12/24/2019 11:57 AM CDT Called pt [phone], scheduled pt for f/u appt on Attending schedule with Dr. Wallace on 12/29/19 at 10:50a. Provided Medicaid transportation information [phone] and encouraged pt to call to schedule ride today. Pt voiced understanding and states he will call today to confirm ride. Pt also asked Dr. Wallace to call him at [phone], msg routed to Dr. Wallace. * Telephone Encounter - Divya Mccullough LCSW - 12/23/2019 9:29 AM CDT Attempted to reach pt at [phone] to assist with scheduling appt with Dr. Wallace, left msg on requesting return call. documented in this encounter Plan of Treatment Not on file documented as of this encounter Visit Diagnoses Not on filedocumented in this encounter
--- OUTSIDE RECORDS SUMMARY | 2024-08-10 03:48 | XMS_ITS | Encounter Summary ---
Author Organization [facility] Address [address] [place] [address] Care Team Providers Care Dimension Stone Quarry Supervisor Name Role Phone Unavailable Primary Care Provider Unavailabl e Reason for Visit * Reason Onset Date Comments Needs alternate med prescribed 09/16/2019 Encounter Details Date Type Department Care Team (Late st Contact Info) Description 09/16/2019 Telephone [facility] [address] [facility] [id number] Mary Case MD NO ADDRESS ON FILE Needs alternate med prescribed Social History Tobacco Use Types Packs/Day Years Used Date Smoking Tobacco: Never Smokeless Tobacco: Never Alcohol Use Standard Drinks/Week Comments Never 0 (1 standard drink = 0.6 oz pur e alcohol) Sex and Gender Information Value Date Recorded Sex Assigned at Not on file Legal Sex Male 9:34 AM SPECIAL TAX AUDITOR Gender Identity Not on file Sexual Orientation Not on file documented as of this encounter Miscellaneous Notes * Telephone Encounter - Roxanne Calderon - 09/16/2019 4:01 PM CST Orders placed in separate encounter. IAL TAX AUDITOR * Telephone Encounter - Roxanne Calderon - 09/16/2019 1:00 PM CST Fax sent to Dr. Santamaria's office. IAL TAX AUDITOR * Telephone Encounter - Roxanne Calderon - 09/16/2019 12:41 PM CST Yissel from [facility] is calling to say pt contacted her that he could not pay for Clobetasol at [facility] that was prescribed by Dr. Santamaria. Pt would like to get Triamcinolone 0.1% ointor Hydrocortisone 2.5% cream or ointment that would be free of cost. IAL TAX AUDITOR documented in this encounter Plan of Treatment Not on file documented as of this encounter Visit Diagnoses Not on filedocumented in this encounter
--- OUTSIDE RECORDS SUMMARY | 2024-08-10 03:48 | XMS_ITS | Encounter Summary ---
Author Organization [facility] Address [address] [place] [address] Care Team Providers Care Traffic Manager Name Role Phone Unavailable Primary Care Provider Unavailabl e Reason for Visit * Reason Comments Medication Refill Encounter Details Date Type Department Care Team (Late st Contact Info) Description 03/04/2020 Refill [facility] [address] [place] [address] Rose Mary Wallace MD [address] [place] [address] Symptomatic HIV infection Social History Tobacco Use Types Packs/Day Years Used Date Smoking Tobacco: Never Smokeless Tobacco: Never Alcohol Use Standard Drinks/Week Comments Never 0 (1 standard drink = 0.6 oz pur e alcohol) Sex and Gender Information Value Date Recorded Sex Assigned at Not on file 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
--- OUTSIDE RECORDS SUMMARY | 2024-08-10 03:48 | XMS_ITS | Encounter Summary ---
Author Organization [facility] Address 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
--- OUTSIDE RECORDS SUMMARY | 2024-08-10 03:48 | XMS_ITS | Encounter Summary ---
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
--- OUTSIDE RECORDS SUMMARY | 2024-08-10 03:48 | XMS_ITS | Encounter Summary ---
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 and provide appropriate mobility aids for use in hospital 3. Consider whether patient is safe to ambulate to bathroom with assistance or should use a bedsidecommode or bedpan 4. Get order for therapy evaluation if appropriate 5. Activate bed or chair alarm while in bed or up in chair Outcome: Progressing Problem: Medications Goal: Absence of/Reduce Fall Risk r/t Medications Description: Patient is a fall risk because of medications (i.e. - BP meds, CV/MANIPULATIVE THERAPY SPECIALIST meds, seizure meds, diuretics, pain meds, psych meds, current chemotherapy). Potential Interventions: 1. Orthostatic VS q day; educate to dangle before rising 2. Educate patient and family on how medications increase patient's fall risk (may make dizzy, lower BP, etc) 3. Do first dose education with all med/dosage changes. Document education 4.Reassess fall risk whenever a medication is changed/added (sleeping pill, pain med, BP med dose adjustment, etc) 5. Activate bed or chair alarm while in bed or up in chair 6. Limit combination of PRN meds whenever possible (i.e. - space out narcs and benzos) 7. Schedule frequent toileting for patients on diuretic to help prevent emergencies 8. Consult pharmacy to review meds and make recommendations (determine best timing, possible dosingadjustments, or identify other education that might be appropriate for patient) 9. Use floor mats next to bed and in front of chair when patient left unattended 10.Do not leave patient unattended while toileting or showering 11.Use appropriate assistive equipment (walker, shower chair, etc) 12. Include information on high risk medications, last doses, and patient tolerance in hand-off communication Outcome: Progressing Problem: Behavior Goal: Absence of/Reduce Fall Risk r/t Behavior Description: Potential Interventions: 1. Specialty low bed 2. Use floor mats next to bed and in front of chair when patient left unattended 3. Engage patient in daily routine/activity 4. Provide appropriate diversion activities (i.e. - coloring, crosswords, activity blanket, towel folding, books) 5. Alcohol withdrawal protocol/CIWA assessment as ordered 6. Encourage family to stay with patient 7. Use appropriate de-escalation techniques 8. Consulting pharmacy to review meds and make recommendations (determine best timing, possible dosing adjustments, or identify other education that might be appropriate for patient) 9. Utilize relaxation channel to soothe patient 10. Patient sitter 11. Appropriate lighting for day/night Outcome: Progressing Problem: Anxiety Goal: Family Services Specialist:Maintain anxiety at a functional level as evidenced by absence of disabling behaviors in response to stress by discharge. Outcome: Progressing Problem: Depressed Mood Goal: Correction: Demonstrates reduced symptoms of depression and improved level of functioning by discharge. Outcome: Progressing UCT STRATEGY DIRECTOR * Care Plan - Teresa Noriega RN - 07/15/2023 2:18 PM CST Shift Narrative: Pt is not going to groups, he took his meds, and is compliant w/ his meals. Pt denies feeling like harming himself or others. He is minimally social w/ peers. Precautions Behavioral Health Precautions: Suicide precautions (07/15/23920) Summary of Phil's problems and interventions: (See flowsheets for more detailed summary) Plan of Care Reviewed with: patient (07/15/23920) Patient's Individualized Goal: take my medications (07/14/231923) Phil's response to interventions this shift: Accepting Phil's perception of symptoms and progress toward goals: not changed Discharge follow up plan reviewed/discussed during the 1:1 shift interview: no Does the patient have a legal guardian? No If yes, describe: Does the patient have a Power of Off Track Betting Manager? No If yes, describe: Legal Status: Voluntary MENTAL HEALTH ASSESSMENT: Behavior: Cooperative (07/15/23920) Observed Emotional State: accepting;apprehensive (07/15/23920) Verbalized Emotional State: anxiety (07/15/23920) Speech: No problems observed (07/15/23920) Thought Processes: Circumstantial (07/15/23920) Social Judgement: Difficulty in problem solving (07/15/23920) Appearance: Disheveled (07/15/23920) Risk Assessment 1. Have you wished you were or wished you could go to sleep and not wake up?: No (07/15/23920) 2. Have you actually had any thoughts of killing yourself?: No (07/15/23920) 6. Have you ever done anything, started to do anything, or prepared to do anything to end your life?: No (07/15/23920) Suicide Risk and Interventions: High (07/15/23920) Depressive Symptoms Symptoms: Isolative (07/15/23920) Describe: pt is isolative at times (07/15/23920) Anxiety Symptoms Symptoms: Generalized (07/15/23920) Describe: rates 12/30 It's always there (07/15/23920) Manic Symptoms Symptoms: No problems reported or observed (07/15/23920) Describe: pt denies (07/11/231909) Psychotic Symptoms Hallucination Type: No problems reported or observed (07/15/23920) Onset of Current Symptoms: pt denies (07/11/231909) Delusion Type: No problems reported or observed (07/15/23920) Onset of Current Symptoms: pt denies (07/11/231909) Homicidal Ideation Violence-Risk Towards Others In the past month have you had thoughts of harming another person?: No (07/15/23920) Bro[facility] Violence Checklist Confusion - Appears obviously confused and disoriented. May be unaware of person, place, time.: No (07/15/23920) Irritability - Easily annoyed or angered. Unable to tolerate the presence of others.: No (07/15/23920) Boisterous - Behavior is overtly loud or noisy. For example slams doors, shouts out when talking etc.: No (07/15/23920) Verbal Threat - A verbal outburst which is more than just a raised voice and where there is a definite intent to intimidate or threaten another person. For example, verbal attacks, abuse, name-calling, verbally neutral comments uttered in a snarling aggressive manner.: No (07/15/23920) Physical Attacks - Where there is a definite intent to physically threaten another person. For example, the taking of an aggressive stance, the grabbing of another person???s clothing, the raising ofan arm or leg, making a fist or modeling a head-butt directed at another. : No (07/15/23920) Attacks on Objects - An attack directed at an object and not an individual. For example, the indiscriminant throwing of an object, banging or smashing windows, kicking, banging or head butting an object or the smashing of furniture. : No (07/15/23920) Total: 0 (07/15/23920) CHELE Behaviors Assessing Overt Behavior for CHELE: None noted (07/15/23920) Senior Data Warehouse Architect Communication Senior Data Warehouse Architect Name: Update provided: [] Yes [] No Summary of conversation: Any concerns (if yes, please explain): Voicemail left for caregiver services home: [] N/A [] No [] Yes: Date/Time Medical Issues/New Medication Teaching Phil was informed about benefits and any potential clinically significant side effects or other concerns regarding the administration of the medication he was given. See separate notes for any prn medications provided during shift. UCT STRATEGY DIRECTOR * Marcie Pugh RN - 07/15/2023 6:14 AM CST Phil remained free from harm throughout shift. No signs or reports of discomfort or distress. Phil maintained on rounds every 15 minutes for safety. Staff will continue to monitor Phil for safety and provide support as needed. Sleep Hours Night (6p-6a): 9 (07/15/23 0600) Sleep/Rest/Relaxation: no problem identified;appears asleep (07/15/23 0600) Reason for alternate sleep location: Patient/Guardian request (07/14/23 0500) Sleep Location: assigned bed (07/14/23 0500) Patient/Guardian agrees with sleep location: Yes (07/14/23 0500) If applicable, detailed reason for alternate sleep location: n/a Preschool Teacher'S Assistant/Nursing leader notified: n/a UCT STRATEGY DIRECTOR * Marcie Pugh RN - 07/14/2023 9:03 PM CST 2019 During this shift, Phil was given the prn medication motrin for pain, as demonstrated by the following behavior: pt request (See MAR for administration time.) Approximately 1 hour after medicationadministration, Phil appeared or reported the following: content/relaxed 2102 During this shift, Phil was given the prn medication doxepin for insomnia, as demonstrated by the following behavior: pt request (See MAR for administration time.) Approximately 1 hour after medication administration, Phil appeared or reported the following: resting calmly and quietly UCT STRATEGY DIRECTOR * Care Plan - Marcie Mascorro RN - 07/14/2023 8:10 PM CST Shift Narrative: Patient was alert and oriented to person, place, situation, and time/date . Patient was restless and cooperative. Patient appeared to be interacting appropriately with staff and peers. Patient rated depression as a 4 out of 10 and anxiety as a 9 out of 10. Patient does endorse SI. Patient endorses passive SI thoughts, contracted for safety. Patient does not endorse HI. Patient does not endorse A/V hallucinations. Patient was med compliant. Precautions Behavioral Health Precautions: Suicide precautions (07/14/231923) Summary of Phil's problems and interventions: (See flowsheets for more detailed summary) Plan of Care Reviewed with: patient (07/14/231923) Patient's Individualized Goal: take my medications (07/14/231923) Phil's response to interventions this shift: Accepting Phil's perception of symptoms and progress toward goals: improved Discharge follow up plan reviewed/discussed during the 1:1 shift interview: no Does the patient have a legal guardian? No If yes, describe: Does the patient have a Power of Off Track Betting Manager? No If yes, describe: Legal Status: Voluntary MENTAL HEALTH ASSESSMENT: Behavior: Restless;Fidgeting;Cooperative;Preoccupied (07/14/231923) Observed Emotional State: accepting;anxious;cooperative;restless (07/14/231923) Verbalized Emotional State: acceptance;anxiety;depression (07/14/231923) Speech: No problems observed (07/14/231923) Thought Processes: Goal oriented (07/14/231923) Social Judgement: Difficulty in problem solving (07/14/231923) Appearance: Disheveled (07/14/231923) Risk Assessment 1. Have you wished you were or wished you could go to sleep and not wake up?: No (07/14/23 1030) 2. Have you actually had any thoughts of killing yourself?: Yes (07/14/231923) 6. Have you ever done anything, started to do anything, or prepared to do anything to end your life?: No (07/14/231923) Suicide Risk and Interventions: Low (07/14/231923) Depressive Symptoms Symptoms: Change in energy level;Impaired concentration;Sleep disturbance (07/14/231923) Describe: 10/30 (07/14/231923) Anxiety Symptoms Symptoms: Generalized (07/14/231923) Describe: 04/01 (07/14/231923) Manic Symptoms Symptoms: No problems reported or observed (07/14/231923) Describe: pt denies (07/11/231909) Psychotic Symptoms Hallucination Type: No problems reported or observed (07/14/231923) Onset of Current Symptoms: pt denies (07/11/231909) Delusion Type: No problems reported or observed (07/14/231923) Onset of Current Symptoms: pt denies (07/11/231909) Homicidal Ideation Violence-Risk Towards Others In the past month have you had thoughts of harming another person?: No (07/14/231923) Broset Broset Violence Checklist Confusion - Appears obviously confused and disoriented. May be unaware of person, place, time.: No (07/14/231923) Irritability - Easily annoyed or angered. Unable to tolerate the presence of others.: No (07/14/231923) Boisterous - Behavior is overtly loud or noisy. For example slams doors, shouts out when talking etc.: No (07/14/231923) Verbal Threat - A verbal outburst which is more than just a raised voice and where there is a definite intent to intimidate or threaten another person. For example, verbal attacks, abuse, name-calling, verbally neutral comments uttered in a snarling aggressive manner.: No (07/14/231923) Physical Attacks - Where there is a definite intent to physically threaten another person. For example, the taking of an aggressive stance, the grabbing of another person???s clothing, the raising ofan arm or leg, making a fist or modeling a head-butt directed at another. : No (07/14/231923) Attacks on Objects - An attack directed at an object and not an individual. For example, the indiscriminant throwing of an object, banging or smashing windows, kicking, banging or head butting an object or the smashing of furniture. : No (07/14/231923) Total: 0 (07/14/231923) CHELE Behaviors Assessing Overt Behavior for CHELE: None noted (07/14/231923) Medical Issues/New Medication Teaching Phil was informed about benefits and any potential clinically significant side effects or other concerns regarding the administration of the medication he was given. See separate notes for any prn medications provided during shift. UCT STRATEGY DIRECTOR * Care Plan - Marcie Mascorro RN - 07/14/2023 7:38 PM CST Problem: Suicide Risk/Attempt Goal: Family Services Specialist: Reduction of suicidal thoughts and absence of suicidal behavior throughout admission and establish a safety plan by discharge. Outcome: Progressing Problem: Pain, Potential/Actual Goal: Verbalizes/displays acceptable comfort level or baseline comfort level Description: Outcome: Progressing Problem: Infection Risk/Actual Goal: Infection Risk/Actual: Infection prevention, control, or resolution by discharge Description: Outcome: Progressing Problem: Safety/Fall Goal: Safety/Fall: Absence of fall, injury, harm during hospitalization Description: Outcome: Progressing Problem: Discharge Planning Goal: Identify discharge needs upon admission and through discharge Description: Outcome: Progressing Problem: Cognitive/Perceptual/Neuro Goal: Achieve optimal cognitive/perceptual/neurological function by discharge or maintain baseline function Outcome: Progressing Problem: Genitourinary/Renal Goal: Achieve optimal genitourinary and renal function by discharge or maintain baseline function Outcome: Progressing Problem: Last Known Fall Goal: Absence of/Reduce Fall Risk during current hospitalization Description: Patient has a history of falls at home or in hospital within the past year. Potential Interventions: 1. Attempt to determine cause of recent falls - was it medication side effects, syncopal episode, etc - to try and predict future falls 2. Ensure that patient's baseline function is known and provide appropriate mobility aids for use in hospital 3. Consider whether patient is safe to ambulate to bathroom with assistance or should use a bedsidecommode or bedpan 4. Get order for therapy evaluation if appropriate 5. Activate bed or chair alarm while in bed or up in chair Outcome: Progressing Problem: Medications Goal: Absence of/Reduce Fall Risk r/t Medications Description: Patient is a fall risk because of medications (i.e. - BP meds, CV/MANIPULATIVE THERAPY SPECIALIST meds, seizure meds, diuretics, pain meds, psych meds, current chemotherapy). Potential Interventions: 1. Orthostatic VS q day; educate to dangle before rising 2. Educate patient and family on how medications increase patient's fall risk (may make dizzy, lower BP, etc) 3. Do first dose education with all med/dosage changes. Document education 4.Reassess fall risk whenever a medication is changed/added (sleeping pill, pain med, BP med dose adjustment, etc) 5. Activate bed or chair alarm while in bed or up in chair 6. Limit combination of PRN meds whenever possible (i.e. - space out narcs and benzos) 7. Schedule frequent toileting for patients on diuretic to help prevent emergencies 8. Consult pharmacy to review meds and make recommendations (determine best timing, possible dosingadjustments, or identify other education that might be appropriate for patient) 9. Use floor mats next to bed and in front of chair when patient left unattended 10.Do not leave patient unattended while toileting or showering 11.Use appropriate assistive equipment (walker, shower chair, etc) 12. Include information on high risk medications, last doses, and patient tolerance in hand-off communication Outcome: Progressing Problem: Behavior Goal: Absence of/Reduce Fall Risk r/t Behavior Description: Potential Interventions: 1. Specialty low bed 2. Use floor mats next to bed and in front of chair when patient left unattended 3. Engage patient in daily routine/activity 4. Provide appropriate diversion activities (i.e. - coloring, crosswords, activity blanket, towel folding, books) 5. Alcohol withdrawal protocol/CIWA assessment as ordered 6. Encourage family to stay with patient 7. Use appropriate de-escalation techniques 8. Consulting pharmacy to review meds and make recommendations (determine best timing, possible dosing adjustments, or identify other education that might be appropriate for patient) 9. Utilize relaxation channel to soothe patient 10. Patient sitter 11. Appropriate lighting for day/night Outcome: Progressing Problem: Anxiety Goal: Family Services Specialist:Maintain anxiety at a functional level as evidenced by absence of disabling behaviors in response to stress by discharge. Outcome: Progressing Problem: Depressed Mood Goal: Correction: Demonstrates reduced symptoms of depression and improved level of functioning by discharge. Outcome: Progressing UCT STRATEGY DIRECTOR * Care Plan - Arnold Menon RN - 07/14/2023 6:15 PM CST During this shift, Phil was given the prn medication atarax for anxiety, as demonstrated by the following behavior: Can I get my anxiety medication? (See MAR for administration time.) Approximately 1 hour after medication administration, Phil appeared or reported the following: pt does not report anxiety at this time UCT STRATEGY DIRECTOR * Care Plan - Arnold Menon RN - 07/14/2023 12:23 PM CST Shift Narrative: Pt denies Audio Hallucinations. Pt denies Visuial Hallucinations. Pt denies Delusions. Pt is compliant with medication. Pt is compliant with meals. Pt does not attend group. Pt does maintain eye contact and talks to staff and peers only when approached. Pt isolated to his room and slept between care and meals. Precautions Behavioral Health Precautions: Suicide precautions (07/14/23 1030) Summary of Phil's problems and interventions: (See flowsheets for more detailed summary) Plan of Care Reviewed with: patient (07/14/23 1030) Patient's Individualized Goal: no goal stated (07/14/23 103) Phil's response to interventions this shift: Accepting Phil's perception of symptoms and progress toward goals: improved Discharge follow up plan reviewed/discussed during the 1:1 shift interview: yes Does the patient have a legal guardian? No If yes, describe: Does the patient have a Power of Off Track Betting Manager? No If yes, describe: Legal Status: Voluntary MENTAL HEALTH ASSESSMENT: Behavior: Calm;Cooperative;Good eye contact (07/14/23 1030) Observed Emotional State: accepting;calm;cooperative (07/14/23 1030) Verbalized Emotional State: acceptance;anxiety;depression (07/14/231029) Speech: No problems observed (07/14/231029) Thought Processes: Logical;Goal oriented (07/14/231029) Social Judgement: Appropriate to situation (07/14/231029) Appearance: Disheveled (07/14/231029) Risk Assessment 1. Have you wished you were or wished you could go to sleep and not wake up?: No (07/14/231029) 2. Have you actually had any thoughts of killing yourself?: No (07/14/231029) 6. Have you ever done anything, started to do anything, or prepared to do anything to end your life?: No (07/13/232227) Suicide Risk and Interventions: High (07/12/231719) Depressive Symptoms Symptoms: Isolative (07/14/231029) Describe: 12/30 (07/13/232227) Anxiety Symptoms Symptoms: Generalized (07/14/231029) Describe: 04/01 (07/13/232227) Manic Symptoms Symptoms: No problems reported or observed (07/14/231029) Describe: pt denies (07/11/231909) Psychotic Symptoms Hallucination Type: No problems reported or observed (07/14/231029) Onset of Current Symptoms: pt denies (07/11/231909) Delusion Type: No problems reported or observed (07/14/231029) Onset of Current Symptoms: pt denies (07/11/231909) Homicidal Ideation Violence-Risk Towards Others In the past month have you had thoughts of harming another person?: No (07/14/231029) Broset Broset Violence Checklist Confusion - Appears obviously confused and disoriented. May be unaware of person, place, time.: No (07/14/231029) Irritability - Easily annoyed or angered. Unable to tolerate the presence of others.: No (07/14/231029) Boisterous - Behavior is overtly loud or noisy. For example slams doors, shouts out when talking etc.: No (07/14/231029) Verbal Threat - A verbal outburst which is more than just a raised voice and where there is a definite intent to intimidate or threaten another person. For example, verbal attacks, abuse, name-calling, verbally neutral comments uttered in a snarling aggressive manner.: No (07/14/231029) Physical Attacks - Where there is a definite intent to physically threaten another person. For example, the taking of an aggressive stance, the grabbing of another person???s clothing, the raising ofan arm or leg, making a fist or modeling a head-butt directed at another. : No (07/14/231029) Attacks on Objects - An attack directed at an object and not an individual. For example, the indiscriminant throwing of an object, banging or smashing windows, kicking, banging or head butting an object or the smashing of furniture. : No (07/14/231029) Total: 0 (07/14/231029) CHELE Behaviors Assessing Overt Behavior for CHELE: None noted (07/14/231029) Senior Data Warehouse Architect Communication Senior Data Warehouse Architect Name: Update provided: [] Yes [] No Summary of conversation: Any concerns (if yes, please explain): Voicemail left for caregiver services home: [] N/A [] No [] Yes: Date/Time Medical Issues/New Medication Teaching Phil was informed about benefits and any potential clinically significant side effects or other concerns regarding the administration of the medication he was given. See separate notes for any prn medications provided during shift. UCT STRATEGY DIRECTOR * Care Plan - Adrienne Blackmon RN - 07/14/2023 11:04 AM CST Problem: Suicide Risk/Attempt Goal: Correction: Reduction of suicidal thoughts and absence of suicidal behavior throughout admission and establish a safety plan by discharge. Outcome: Variance Problem: Anxiety Goal: Family Services Specialist:Maintain anxiety at a functional level as evidenced by absence of disabling behaviors in response to stress by discharge. Outcome: Variance MHCM met with pt to check in on feelings toward current situation. Pt discussed their future goals and aspirations within their field of work. Pt discussed still being SI, but no intent to act on it.Pt discussed feeling anxious, but for no particular reason. UCT STRATEGY DIRECTOR * Care Plan - Adrienne Blackmon RN - 07/14/2023 11:03 AM CST Problem: Discharge Planning Goal: Identify discharge [...] any lethal means. MHCM prompted pt to discuss what is most important to them and worth living for. Pt was able to identify reasons for living. MHCM prompted pt to consider newly acquired skills which have led to symptom reduction and improved level of functioning. Pt stated they have a firearm and their s/w is aware. Pt discussed wanting their friend to hold onto it in the mean time. UCT STRATEGY DIRECTOR UCT STRATEGY DIRECTOR * Carter Navas - Marcie Mascorro RN - 07/14/2023 6:03 AM CST Phil remained free from harm throughout shift. No signs or reports of discomfort or distress. [place] maintained on rounds every 15 minutes for safety. Staff will continue to monitor Phil for safety and provide support as needed. Sleep Hours Night (6p-6a): 7 (07/14/23 0500) Sleep/Rest/Relaxation: no problem identified (07/14/23 0500) Reason for alternate sleep location: Patient/Guardian request (07/14/23 0500) Sleep Location: assigned bed (07/14/23 0500) Patient/Guardian agrees with sleep location: Yes (07/14/23 0500) If applicable, detailed reason for alternate sleep location: n/a Preschool Teacher'S Assistant/Nursing leader notified: n/a UCT STRATEGY DIRECTOR * Carter Navas - Marcie Mascorro RN - 07/13/2023 10:38 PM CST Shift Narrative: Patient was alert and oriented to person, place, situation, and time/date . Patient was calm and cooperative. Patient appeared to be interacting appropriately with staff and peers. Patient rated depression as a 6 out of 10 and anxiety as a 9 out of 10. Patient does not endorse SI. Patient does not e ndorse HI. Patient does not endorse A/V hallucinations. Patient was med compliant. Precautions Behavioral Health Precautions: Suicide precautions (07/13/232227) Summary of Phil's problems and interventions: (See flowsheets for more detailed summary) Plan of Care Reviewed with: patient (07/13/232227) Patient's Individualized Goal: take my medications (07/13/232227) Phil's response to interventions this shift: Accepting Phil's perception of symptoms and progress toward goals: improved Discharge follow up plan reviewed/discussed during the 1:1 shift interview: no Does the patient have a legal guardian? No If yes, describe: Does the patient have a Power of Off Track Betting Manager? No If yes, describe: Legal Status: Voluntary MENTAL HEALTH ASSESSMENT: Behavior: Calm;Sedentary;Isolative;Cooperative (07/13/232227) Observed Emotional State: accepting;calm;cooperative (07/13/232227) Verbalized Emotional State: acceptance;anxiety;depression (07/13/232227) Speech: No problems observed (07/13/232227) Thought Processes: Logical;Goal oriented (07/13/232227) Social Judgement: Difficulty in problem solving (07/13/232227) Appearance: Appears stated age (07/13/232227) Risk Assessment 1. Have you wished you were or wished you could go to sleep and not wake up?: Yes (07/12/231719) 2. Have you actually had any thoughts of killing yourself?: No (07/13/232227) 6. Have you ever done anything, started to do anything, or prepared to do anything to end your life?: No (07/13/232227) Suicide Risk and Interventions: High (07/12/23 1720) Depressive Symptoms Symptoms: Change in energy level;Isolative (07/13/232227) Describe: 12/30 (07/13/232227) Anxiety Symptoms Symptoms: Generalized (07/13/232227) Describe: 9/10 (07/13/232227) Manic Symptoms Symptoms: No problems reported or observed (07/13/232227) Describe: pt denies (07/11/231909) Psychotic Symptoms Hallucination Type: No problems reported or observed (07/13/232227) Onset of Current Symptoms: pt denies (07/11/231909) Delusion Type: No problems reported or observed (07/13/232227) Onset of Current Symptoms: pt denies (07/11/231909) Homicidal Ideation Violence-Risk Towards Others In the past month have you had thoughts of harming another person?: No (07/13/232227) Broset Broset Violence Checklist Confusion - Appears obviously confused and disoriented. May be unaware of person, place, time.: No (07/13/232227) Irritability - Easily annoyed or angered. Unable to tolerate the presence of others.: No (07/13/232227) Boisterous - Behavior is overtly loud or noisy. For example slams doors, shouts out when talking etc.: No (07/13/232227) Verbal Threat - A verbal outburst which is more than just a raised voice and where there is a definite intent to intimidate or threaten another person. For example, verbal attacks, abuse, name-calling, verbally neutral comments uttered in a snarling aggressive manner.: No (07/13/232227) Physical Attacks - Where there is a definite intent to physically threaten another person. For example, the taking of an aggressive stance, the grabbing of another person???s clothing, the raising ofan arm or leg, making a fist or modeling a head-butt directed at another. : No (07/13/232227) Attacks on Objects - An attack directed at an object and not an individual. For example, the indiscriminant throwing of an object, banging or smashing windows, kicking, banging or head butting an object or the smashing of furniture. : No (07/13/232227) Total: 0 (07/13/232227) CHELE Behaviors Assessing Overt Behavior for CHELE: None noted (07/13/232227) Medical Issues/New Medication Teaching Phil was informed about benefits and any potential clinically significant side effects or other concerns regarding the administration of the medication he was given. See separate notes for any prn medications provided during shift. UCT STRATEGY DIRECTOR * Care Plan - Marcie Mascorro RN - 07/13/2023 10:38 PM CST Problem: Suicide Risk/Attempt Goal: Family Services Specialist: Reduction of suicidal thoughts and absence of suicidal behavior throughout admission and establish a safety plan by discharge. Outcome: Progressing Problem: Pain, Potential/Actual Goal: Verbalizes/displays acceptable comfort level or baseline comfort level Description: Outcome: Progressing Problem: Infection Risk/Actual Goal: Infection Risk/Actual: Infection prevention, control, or resolution by discharge Description: Outcome: Progressing Problem: Safety/Fall Goal: Safety/Fall: Absence of fall, injury, harm during hospitalization Description: Outcome: Progressing Problem: Discharge Planning Goal: Identify discharge needs upon admission and through discharge Description: Outcome: Progressing Problem: Cognitive/Perceptual/Neuro Goal: Achieve optimal cognitive/perceptual/neurological function by discharge or maintain baseline function Outcome: Progressing Problem: Genitourinary/Renal Goal: Achieve optimal genitourinary and renal function by discharge or maintain baseline function Outcome: Progressing Problem: Last Known Fall Goal: Absence of/Reduce Fall Risk during current hospitalization Description: Patient has a history of falls at home or in hospital within the past year. Potential Interventions: 1. Attempt to determine cause of recent falls - was it medication side effects, syncopal episode, etc - to try and predict future falls 2. Ensure that patient's baseline function is known and provide appropriate mobility aids for use in hospital 3. Consider whether patient is safe to ambulate to bathroom with assistance or should use a bedsidecommode or bedpan 4. Get order for therapy evaluation if appropriate 5. Activate bed or chair alarm while in bed or up in chair Outcome: Progressing Problem: Medications Goal: Absence of/Reduce Fall Risk r/t Medications Description: Patient is a fall risk because of medications (i.e. - BP meds, CV/MANIPULATIVE THERAPY SPECIALIST meds, seizure meds, diuretics, pain meds, psych meds, current chemotherapy). Potential Interventions: 1. Orthostatic VS q day; educate to dangle before rising 2. Educate patient and family on how medications increase patient's fall risk (may make dizzy, lower BP, etc) 3. Do first dose education with all med/dosage changes. Document education 4.Reassess fall risk whenever a medication is changed/added (sleeping pill, pain med, BP med dose adjustment, etc) 5. Activate bed or chair alarm while in bed or up in chair 6. Limit combination of PRN meds whenever possible (i.e. - space out narcs and benzos) 7. Schedule frequent toileting for patients on diuretic to help prevent emergencies 8. Consult pharmacy to review meds and make recommendations (determine best timing, possible dosingadjustments, or identify other education that might be appropriate for patient) 9. Use floor mats next to bed and in front of chair when patient left unattended 10.Do not leave patient unattended while toileting or showering 11.Use appropriate assistive equipment (walker, shower chair, etc) 12. Include information on high risk medications, last doses, and patient tolerance in hand-off communication Outcome: Progressing Problem: Behavior Goal: Absence of/Reduce Fall Risk r/t Behavior Description: Potential Interventions: 1. Specialty low bed 2. Use floor mats next to bed and in front of chair when patient left unattended 3. Engage patient in daily routine/activity 4. Provide appropriate diversion activities (i.e. - coloring, crosswords, activity blanket, towel folding, books) 5. Alcohol withdrawal protocol/CIWA assessment as ordered 6. Encourage family to stay with patient 7. Use appropriate de-escalation techniques 8. Consulting pharmacy to review meds and make recommendations (determine best timing, possible dosing adjustments, or identify other education that might be appropriate for patient) 9. Utilize relaxation channel to soothe patient 10. Patient sitter 11. Appropriate lighting for day/night Outcome: Progressing Problem: Anxiety Goal: Correction:Maintain anxiety at a functional level as evidenced by absence of disabling behaviors in response to stress by discharge. Outcome: Progressing Problem: Depressed Mood Goal: Correction: Demonstrates reduced symptoms of depression and improved level of functioning by discharge. Outcome: Progressing UCT STRATEGY DIRECTOR * Care Plan - Marcie Mascorro RN - 07/13/2023 9:09 PM CST Patient received 30mg of mirtazapine, Thor RUIZ, Charge Jelani RUSH, Justin HYDRAULIC CORRUGATING MACHINE OPERATOR, and Duong Multani PA-C informed, patient notified of med error and potential side effects UCT STRATEGY DIRECTOR * Care Plan - Sara Linn RN - 07/13/2023 6:55 PM CST 1600 During this shift, Phil was given the prn medication Atarax for anxiety, as demonstrated bythe following behavior: rates 04/01 (See SEP for administration time.) Approximately 1 hour after medication administration, Phil appeared or reported the following: denies anxiety UCT STRATEGY DIRECTOR * Care Plan - OscarMilly - 07/13/2023 2:35 PM CST Problem: Suicide Risk/Attempt Goal: Family Services Specialist: Reduction of suicidal thoughts and absence of suicidal behavior throughout admission and establish a safety plan by discharge. Note: Recreation Therapy Adult Assessment This investigative writer met 1:1 with Pt to complete assessment. Reason for Treatment: SI Patient's Individualized Goal: Take my medications (07/13/23 1005) Patients Affect: normal Behavior: pleasant/Friendly Social: cooperative Current Leisure Interests: write, sing, research, outdoors What do you do for exercise and how often? Run, rock climb What clubs, organizations, or support groups do [...] one to do things with [] transportation [x] physical limitations [x] Other-HIV What would you like to change about the way you spend your free time? nothing What causes your anxiety/stressors? Loss of friend Rate your self-esteem: [x] Good [] Fair [] Low List three positive things about yourself: 1. genuine 2. positive 3. caring Physical Status: See RN/MD assessment Treatment Plan [...] will provide support as needed. Milly Moore 07/13/2023 UCT STRATEGY DIRECTOR * Care Plan - Estuardo Matt RN - 07/13/2023 11:58 AM CST [id number] Shift Narrative: Phil was cooperative during this shift. He was observed [facility] [place] [facility] [place]. He denied SI/HI, AVH, or pain. He rated his anxiety a 8/10 and depression 6/10. He was given PRN Atarax, see PRN note. Patient was med and meal compliant. Interactsappropriately on the unit. He remains on 15 min rounds for safety. Precautions Behavioral Health Precautions: Suicide precautions (07/13/231004) Summary of Phil's problems and interventions: (See flowsheets for more detailed summary) Plan of Care Reviewed with: patient (07/13/231004) Patient's Individualized Goal: Take my medications (07/13/231004) Phil's response to interventions this shift: Accepting Phil's perception of symptoms and progress toward goals: improved Discharge follow up plan reviewed/discussed during the 1:1 shift interview: no Does the patient have a legal guardian? No If yes, describe: Does the patient have a Power of Off Track Betting Manager? No If yes, describe: Legal Status: Voluntary MENTAL HEALTH ASSESSMENT: Behavior: Calm;Cooperative (07/13/231004) Observed Emotional State: anxious;cooperative (07/13/231004) Verbalized Emotional State: anxiety;depression (07/13/231004) Speech: No problems observed (07/13/231004) Thought Processes: Goal oriented (07/13/231004) Social Judgement: Difficulty in problem solving (07/13/231004) Appearance: Appears stated age (07/13/231004) Risk Assessment 1. Have you wished you were or wished you could go to sleep and not wake up?: Yes (07/12/231719) 2. Have you actually had any thoughts of killing yourself?: No (07/13/231004) 6. Have you ever done anything, started to do anything, or prepared to do anything to end your life?: No (07/13/231004) Suicide Risk and Interventions: High (07/12/231719) Depressive Symptoms Symptoms: Change in energy level (07/13/231004) Describe: Pt rated 6/10 (07/13/231004) Anxiety Symptoms Symptoms: Generalized (07/13/231004) Describe: Pt rated 8/10 (07/13/231004) Manic Symptoms Symptoms: No problems reported or observed (07/13/231004) Describe: pt denies (07/11/231909) Psychotic Symptoms Hallucination Type: No problems reported or observed (07/13/231004) Onset of Current Symptoms: pt denies (07/11/231909) Delusion Type: No problems reported or observed (07/13/231004) Onset of Current Symptoms: pt denies (07/11/231909) Homicidal Ideation Violence-Risk Towards Others In the past month have you had thoughts of harming another person?: No (07/13/231004) Broset Broset Violence Checklist Confusion - Appears obviously confused and disoriented. May be unaware of person, place, time.: No (07/13/231004) Irritability - Easily annoyed or angered. Unable to tolerate the presence of others.: No (07/13/231004) Boisterous - Behavior is overtly loud or noisy. For example slams doors, shouts out when talking etc.: No (07/13/231004) Verbal Threat - A verbal outburst which is more than just a raised voice and where there is a definite intent to intimidate or threaten another person. For example, verbal attacks, abuse, name-calling, verbally neutral comments uttered in a snarling aggressive manner.: No (07/13/231004) Physical Attacks - Where there is a definite intent to physically threaten another person. For example, the taking of an aggressive stance, the grabbing of another person???s clothing, the raising ofan arm or leg, making a fist or modeling a head-butt directed at another. : No (07/13/231004) Attacks on Objects - An attack directed at an object and not an individual. For example, the indiscriminant throwing of an object, banging or smashing windows, kicking, banging or head butting an object or the smashing of furniture. : No (07/13/231004) Total: 0 (07/13/231004) CHELE Behaviors Assessing Overt Behavior for CHELE: None noted (07/13/231004) Senior Data Warehouse Architect Communication Senior Data Warehouse Architect Name: Update provided: [] Yes [] No Summary of conversation: Any concerns (if yes, please explain): Voicemail left for caregiver services home: [] N/A [] No [] Yes: Date/Time Medical Issues/New Medication Teaching Phil was informed about benefits and any potential clinically significant side effects or other concerns regarding the administration of the medication he was given. See separate notes for any prn medications provided during shift. Problem: Anxiety Goal: Correction:Maintain anxiety at a functional level as evidenced by absence of disabling behaviors in response to stress by discharge. Outcome: Variance Problem: Depressed Mood Goal: Family Services Specialist: Demonstrates reduced symptoms of depression and improved level of functioning by discharge. Outcome: Variance Problem: Suicide Risk/Attempt Goal: Correction: Reduction of suicidal thoughts and absence of suicidal behavior throughout admission and establish a safety plan by discharge. Outcome: Progressing Problem: Pain, Potential/Actual Goal: Verbalizes/displays acceptable comfort level or baseline comfort level Description: Outcome: Progressing Problem: Infection Risk/Actual Goal: Infection Risk/Actual: Infection prevention, control, or resolution by discharge Description: Outcome: Progressing Problem: Safety/Fall Goal: Safety/Fall: Absence of fall, injury, harm during hospitalization Description: Outcome: Progressing Problem: Discharge Planning Goal: Identify discharge needs upon admission and through discharge Description: Outcome: Progressing Problem: Cognitive/Perceptual/Neuro Goal: Achieve optimal cognitive/perceptual/neurological function by discharge or maintain baseline function Outcome: Progressing Problem: Genitourinary/Renal Goal: Achieve optimal genitourinary and renal function by discharge or maintain baseline function Outcome: Progressing Problem: Last Known Fall Goal: Absence of/Reduce Fall Risk during current hospitalization Description: Patient has a history of falls at home or in hospital within the past year. Potential Interventions: 1. Attempt to determine cause of recent falls - was it medication side effects, syncopal episode, etc - to try and predict future falls 2. Ensure that patient's baseline function is known and provide appropriate mobility aids for use in hospital 3. Consider whether patient is safe to ambulate to bathroom with assistance or should use a bedsidecommode or bedpan 4. Get order for therapy evaluation if appropriate 5. Activate bed or chair alarm while in bed or up in chair Outcome: Progressing Problem: Medications Goal: Absence of/Reduce Fall Risk r/t Medications Description: Patient is a fall risk because of medications (i.e. - BP meds, CV/MANIPULATIVE THERAPY SPECIALIST meds, seizure meds, diuretics, pain meds, psych meds, current chemotherapy). Potential Interventions: 1. Orthostatic VS q day; educate to dangle before rising 2. Educate patient and family on how medications increase patient's fall risk (may make dizzy, lower BP, etc) 3. Do first dose education with all med/dosage changes. Document education 4.Reassess fall risk whenever a medication is changed/added (sleeping pill, pain med, BP med dose adjustment, etc) 5. Activate bed or chair alarm while in bed or up in chair 6. Limit combination of PRN meds whenever possible (i.e. - space out narcs and benzos) 7. Schedule frequent toileting for patients on diuretic to help prevent emergencies 8. Consult pharmacy to review meds and make recommendations (determine best timing, possible dosingadjustments, or identify other education that might be appropriate for patient) 9. Use floor mats next to bed and in front of chair when patient left unattended 10.Do not leave patient unattended while toileting or showering 11.Use appropriate assistive equipment (walker, shower chair, etc) 12. Include information on high risk medications, last doses, and patient tolerance in hand-off communication Outcome: Progressing Problem: Behavior Goal: Absence of/Reduce Fall Risk r/t Behavior Description: Potential Interventions: 1. Specialty low bed 2. Use floor mats next to bed and in front of chair when patient left unattended 3. Engage patient in daily routine/activity 4. Provide appropriate diversion activities (i.e. - coloring, crosswords, activity blanket, towel folding, books) 5. Alcohol withdrawal protocol/CIWA assessment as ordered 6. Encourage family to stay with patient 7. Use appropriate de-escalation techniques 8. Consulting pharmacy to review meds and make recommendations (determine best timing, possible dosing adjustments, or identify other education that might be appropriate for patient) 9. Utilize relaxation channel to soothe patient 10. Patient sitter 11. Appropriate lighting for day/night Outcome: Progressing UCT STRATEGY DIRECTOR * Care Plan - Katherine Dumont RN - 07/13/2023 5:18 AM CST Pt resting in bed with eyes closed. RR even and unlabored able to turn no s/s of acute distress noted. Cont to monitor Q15min round for comfort and safety. UCT STRATEGY DIRECTOR * Care Plan - Katherine Dumont RN - 07/13/2023 5:18 AM CST Tylenol 650 mg po given 6/10 right leg pain,after 1 hour pt asleep,no sign of pain. UCT STRATEGY DIRECTOR UCT STRATEGY DIRECTOR * Care Plan - Katherine Dumont RN - 07/13/2023 1:22 AM CST Ibuprofen 400 mg po for 5/10 leg pain,after 1 hour pt asleep no sign of pain.. UCT STRATEGY DIRECTOR UCT STRATEGY DIRECTOR * Care Plan - Katherine Dumont RN - 07/13/2023 12:39 AM CST Problem: Suicide Risk/Attempt Goal: Family Services Specialist: Reduction of suicidal thoughts and absence of suicidal behavior throughout admission and establish a safety plan by discharge. Outcome: Progressing Problem: Pain, Potential/Actual Goal: Verbalizes/displays acceptable comfort level or baseline comfort level Description: Outcome: Progressing Problem: Infection Risk/Actual Goal: Infection Risk/Actual: Infection prevention, control, or resolution by discharge Description: Outcome: Progressing Problem: Safety/Fall Goal: Safety/Fall: Absence of fall, injury, harm during hospitalization Description: Outcome: Progressing Problem: Discharge Planning Goal: Identify discharge needs upon admission and through discharge Description: Outcome: Progressing Problem: Cognitive/Perceptual/Neuro Goal: Achieve optimal cognitive/perceptual/neurological function by discharge or maintain baseline function Outcome: Progressing Problem: Genitourinary/Renal Goal: Achieve optimal genitourinary and renal function by discharge or maintain baseline function Outcome: Progressing Problem: Last Known Fall Goal: Absence of/Reduce Fall Risk during current hospitalization Description: Patient has a history of falls at home or in hospital within the past year. Potential Interventions: 1. Attempt to determine cause of recent falls - was it medication side effects, syncopal episode, etc - to try and predict future falls 2. Ensure that patient's baseline function is known and provide appropriate mobility aids for use in hospital 3. Consider whether patient is safe to ambulate to bathroom with assistance or should use a bedsidecommode or bedpan 4. Get order for therapy evaluation if appropriate 5. Activate bed or chair alarm while in bed or up in chair Outcome: Progressing Problem: Medications Goal: Absence of/Reduce Fall Risk r/t Medications Description: Patient is a fall risk because of medications (i.e. - BP meds, CV/MANIPULATIVE THERAPY SPECIALIST meds, seizure meds, diuretics, pain meds, psych meds, current chemotherapy). Potential Interventions: 1. Orthostatic VS q day; educate to dangle before rising 2. Educate patient and family on how medications increase patient's fall risk (may make dizzy, lower BP, etc) 3. Do first dose education with all med/dosage changes. Document education 4.Reassess fall risk whenever a medication is changed/added (sleeping pill, pain med, BP med dose adjustment, etc) 5. Activate bed or chair alarm while in bed or up in chair 6. Limit combination of PRN meds whenever possible (i.e. - space out narcs and benzos) 7. Schedule frequent toileting for patients on diuretic to help prevent emergencies 8. Consult pharmacy to review meds and make recommendations (determine best timing, possible dosingadjustments, or identify other education that might be appropriate for patient) 9. Use floor mats next to bed and in front of chair when patient left unattended 10.Do not leave patient unattended while toileting or showering 11.Use appropriate assistive equipment (walker, shower chair, etc) 12. Include information on high risk medications, last doses, and patient tolerance in hand-off communication Outcome: Progressing Problem: Behavior Goal: Absence of/Reduce Fall Risk r/t Behavior Description: Potential Interventions: 1. Specialty low bed 2. Use floor mats next to bed and in front of chair when patient left unattended 3. Engage patient in daily routine/activity 4. Provide appropriate diversion activities (i.e. - coloring, crosswords, activity blanket, towel folding, books) 5. Alcohol withdrawal protocol/CIWA assessment as ordered 6. Encourage family to stay with patient 7. Use appropriate de-escalation techniques 8. Consulting pharmacy to review meds and make recommendations (determine best timing, possible dosing adjustments, or identify other education that might be appropriate for patient) 9. Utilize relaxation channel to soothe patient 10. Patient sitter 11. Appropriate lighting for day/night Outcome: Progressing Problem: Anxiety Goal: Family Services Specialist:Maintain anxiety at a functional level as evidenced by absence of disabling behaviors in response to stress by discharge. Outcome: Progressing Problem: Depressed Mood Goal: Correction: Demonstrates reduced symptoms of depression and improved level of functioning by discharge. Outcome: Progressing UCT STRATEGY DIRECTOR * Care Plan - Katherine Dumont RN - 07/13/2023 12:07 AM CST 2300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 CATCH PROCEDURE / Unknown Collection / Unknown 07/11/2023 12:59 PM PRODUCT STRATEGY DIRECTOR 07/11/2023 1:04 PM PRODUCT STRATEGY DIRECTOR Narrative [facility] - 07/11/2023 1:39 PM PRODUCT STRATEGY DIRECTOR This test is a qualitative screen. The [...] Phencyclidine ? Negative ? 25 ng/mL ? Vin Alston MD URINE ORDERABLES Final Result [facility] PRADEEP# [id number] [address] [place] [address] * XR FOOT 3+ VW RIGHT (07/11/2023 12:13 PM PRODUCT STRATEGY DIRECTOR) Anatomical Region Laterality Modality Ankle / Foot Computed Radiogr aphy 07/11/2023 12:1 3 PM PRODUCT STRATEGY DIRECTOR Impressions 07/11/2023 12:20 PM PRODUCT STRATEGY DIRECTOR IMPRESSION: ?? Negative. DICTATION LOCATION: Location [address] [place] [address] Narrative 07/11/2023 12:20 PM PRODUCT STRATEGY DIRECTOR RIGHT FOOT DATE: 07/11/2023 12:13 PM HISTORY: Injury. ?? Pain ?? COMPARISON: None available FINDINGS: AP, oblique, and lateral views of the right foot demonstrate no evidence of fracture. Alignment is intact. No radiopaque foreign bodies or significant arthritic change is seen. INCIDENTAL FINDINGS: ??None. Procedure Note Merlyn Ledbetter MD - 07/11/2023 RIGHT FOOT DATE: 07/11/2023 12:13 PM HISTORY: Injury. Pain COMPARISON: None available FINDINGS: AP, oblique, and lateral views of the right foot demonstrate no evidence of fracture. Alignment is intact. No radiopaque foreign bodies or significant arthritic change is seen. INCIDENTAL FINDINGS: None. IMPRESSION: Negative. DICTATION LOCATION: Location - [facility] us Vin Alston MD DIAGNOSTIC IMAGING ORDERABLES Fi nal Result * XR ANKLE 3+ VW RIGHT (07/11/2023 12:13 PM PRODUCT STRATEGY DIRECTOR) Anatomical Region Laterality Modality Ankle / Foot Computed Radiogr aphy 07/11/2023 12:1 3 PM PRODUCT STRATEGY DIRECTOR Impressions 07/11/2023 12:19 PM PRODUCT STRATEGY DIRECTOR IMPRESSION: 1. ??Normal exam. DICTATION LOCATION: Location [address] [place] [address] Narrative 07/11/2023 12:19 PM PRODUCT STRATEGY DIRECTOR XR ANKLE 3+ VW RIGHT DATE: 07/11/2023 12:13 PM HISTORY: Injury. COMPARISON: None. EXAMINATION: Three views of the right ankle. ?? FINDINGS: No fracture, dislocation or significant degenerative change. Soft tissues are normal. Procedure Note Dallas Subramanian MD - 07/11/2023 XR ANKLE 3+ VW RIGHT DATE: 07/11/2023 12:13 PM HISTORY: Injury. COMPARISON: None. EXAMINATION: Three views of the right ankle. FINDINGS: No fracture, dislocation or significant degenerative change. Soft tissues are normal. IMPRESSION: 1. Normal exam. DICTATION LOCATION: [address] us Vin Alston MD DIAGNOSTIC IMAGING ORDERABLES Fi nal Result * XR KNEE 3 VW RIGHT (07/11/2023 12:13 PM PRODUCT STRATEGY DIRECTOR) Anatomical Region Laterality Modality Lower Extremity Computed Radiogr aphy 07/11/2023 12:1 3 PM PRODUCT STRATEGY DIRECTOR Impressions 07/11/2023 12:19 PM PRODUCT STRATEGY DIRECTOR IMPRESSION: 1. ??Normal exam. DICTATION LOCATION: [address] Narrative 07/11/2023 12:19 PM PRODUCT STRATEGY DIRECTOR XR KNEE 3 VW RIGHT DATE: 07/11/2023 12:13 PM HISTORY: Injury. COMPARISON: None. EXAMINATION: Three views of the right knee. ?? FINDINGS: No fracture, dislocation or significant degenerative change. Soft tissues are normal. Procedure Note Dallas Subramanian MD - 07/11/2023 XR KNEE 3 VW RIGHT DATE: 07/11/2023 12:13 PM HISTORY: Injury. COMPARISON: None. EXAMINATION: Three views of the right knee. FINDINGS: No fracture, dislocation or significant degenerative change. Soft tissues are normal. IMPRESSION: 1. Normal exam. DICTATION LOCATION: [address] us Vin Alston MD DIAGNOSTIC IMAGING ORDERABLES Fi nal Result * XR HIP 2 OR 3 VIEWS RT (07/11/2023 12:12 PM PRODUCT STRATEGY DIRECTOR) Anatomical Region Laterality Modality Lower Extremity Right Computed Radiogr aphy 07/11/2023 12:1 2 PM PRODUCT STRATEGY DIRECTOR Impressions 07/11/2023 12:19 PM PRODUCT STRATEGY DIRECTOR IMPRESSION: ?? No fracture. DICTATION LOCATION: Location 1 - [facility] Narrative 07/11/2023 12:19 PM PRODUCT STRATEGY DIRECTOR RIGHT HIP DATE: 07/11/2023 12:12 PM HISTORY: Pain. ?? See Reason for Exam ?? COMPARISON: 05/23/2020 FINDINGS: AP view the pelvis and AP and frog leg views of the right hip demonstrate no evidence of fracture. Alignment is intact. No radiopaque foreign bodies or significant arthritic change is seen. INCIDENTAL FINDINGS: ??None. Procedure Note Merlyn Ledbetter MD - 07/11/2023 RIGHT HIP DATE: 07/11/2023 12:12 PM HISTORY: Pain. See Reason for Exam COMPARISON: 05/23/2020 FINDINGS: AP view the pelvis and AP and frog leg views of the right hip demonstrate no evidence of fracture. Alignment is intact. No radiopaque foreign bodies or significant arthritic change is seen. INCIDENTAL FINDINGS: None. IMPRESSION: No fracture. DICTATION LOCATION: Location - [facility] Vin Alston MD DIAGNOSTIC IMAGING ORDERABLES Fi nal Result * LIPID PANEL (07/11/2023 11:50 AM PRODUCT STRATEGY DIRECTOR) CHOLESTEROL 141 <200 mg/dL 07/11/2023 7:[address] [facility] [employer] LABORATORY [facility] TRIGLYCERIDE 44 <150 mg/dL 07/11/2023 7:[address] [facility] [employer] [facility] HDL 46 40 - 59 mg/dL 07/11/2023 7:[address] [facility] [employer] [facility] LDL CALCULATED 86 <100 mg/dL 07/11/2023 7:[address] [facility] [employer] [facility] NON-HDL CHOLESTEROL 95 <130 mg/dL 07/11/2023 7:[address] [facility] [employer] [facility] Blood Venipuncture / Unknown 07/11/2023 11:50 AM PRODUCT STRATEGY DIRECTOR 07/11/2023 11:57 AM [facility] [employer] LABORATORY SERVICES [facility] - 07/11/2023 7:01 PM PRODUCT STRATEGY DIRECTOR TOTAL CHOLESTEROL ??mg/dL ??Desirable <200 ??Borderline high [...] Mcrae MD CHEMISTRY ORDERABLES Final Resul t [facility]# [id number] [address] [employer] [facility] [place] [address] * HEMOGLOBIN A1C (07/11/2023 11:50 AM PRODUCT STRATEGY DIRECTOR) HEMOGLOBIN A1C 5.4 <5.7 % 07/11/2023 6:48 PM PRODUCT STRATEGY DIRECTOR [facility] EST. AVG GLUCOSE, A1C 108 mg/dL 07/11/2023 6:48 PM [facility] Blood Venipuncture / Unknown 07/11/2023 11:50 AM PRODUCT STRATEGY DIRECTOR 07/11/2023 11:57 AM PRODUCT STRATEGY DIRECTOR Narrative [facility] Credit Coach [facility] - 07/11/2023 6:48 PM PRODUCT STRATEGY DIRECTOR HGB A1C INTERPRETATION NORMAL: ? <5.7% PRE-DIABETES: 5.7 - 6.4% DIABETES: ? 6.5% OR GREATER Laquita Mcrae MD CHEMISTRY ORDERABLES Final Resul t Performing Organization Address [facility] Co de Phone Number [facility]# [id number] [address] [place] [address] * TSH REFLEXIVE (07/11/2023 11:50 AM PRODUCT STRATEGY DIRECTOR) TSH 0.59 0.27 - 4.20 uIU/mL 07/11/2023 12:38 PM PRODUCT STRATEGY DIRECTOR [facility] Credit Coach [facility] Blood Venipuncture / Unknown 07/11/2023 11:50 AM PRODUCT STRATEGY DIRECTOR 07/11/2023 11:57 AM PRODUCT STRATEGY DIRECTOR Vin Alston MD CHEMISTRY ORDERABLES Final Resul t Performing Organization Address [facility] Phone Number [facility] Credit Coach [facility] CLVT# [id number] [address] [place] [address] * ETHANOL LEVEL (07/11/2023 11:50 AM PRODUCT STRATEGY DIRECTOR) ETHANOL <10.00 <10.00 mg/dL 07/11/2023 12:32 PM PRODUCT STRATEGY DIRECTOR [facility] Credit Coach [facility] ETHANOL % <0.01 %w/v 07/11/2023 12:32 PM PRODUCT STRATEGY DIRECTOR [facility] Credit Coach [facility] Blood Venipuncture / Unknown 07/11/2023 11:50 AM PRODUCT STRATEGY DIRECTOR 07/11/2023 11:57 AM PRODUCT STRATEGY DIRECTOR Vin Alston MD CHEMISTRY ORDERABLES Final Resul t Performing Organization Address [facility] Co de Phone Number [facility] Credit Coach [facility]# [id number] [address] [place] [address] * (ABNORMAL) ACETAMINOPHEN LEVEL (07/11/2023 11:50 AM PRODUCT STRATEGY DIRECTOR) ACETAMINOPHEN LEVEL <5(L) 10 - 30 ug/mL 07/11/2023 12:33 PM PRODUCT STRATEGY DIRECTOR [employer] [facility] Comment: Acetaminophen Toxic Range - Post Dose 4 ??hr ?>200 ug/mL 8 ??hr ?>100 ug/mL 12 hr ?>50 ??ug/mL Pediatric toxic concentration: 2 hr post ingestion(liquid)= >225 ug/mL Blood Venipuncture / Unknown 07/11/2023 11:50 AM PRODUCT STRATEGY DIRECTOR 07/11/2023 11:57 AM PRODUCT STRATEGY DIRECTOR us Vin Alston MD CHEMISTRY ORDERABLES Final Resul t [facility] Credit Coach [facility] CLIA# [id number] [address] [place] [address] * (ABNORMAL) COMPREHENSIVE METABOLIC PANEL (07/11/2023 11:50 AM PRODUCT STRATEGY DIRECTOR) SODIUM 139 136 - 145 mmol/L 07/11/2023 12:32 PM [facility] LABORATORY [facility] POTASSIUM 4.4 3.5 - 5.0 mmol/L 07/11/2023 12:32 PM [facility] Comment:Slightly hemolyzed. Result may be falsely elevated. CHLORIDE 105 98 - 107 mmol/L 07/11/2023 12:32 PM [facility] LABORATORY [facility] CO2 29 22 - 29 mmol/L 07/11/2023 12:32 PM [facility] LABORATORY [facility] CALCIUM 8.9 8.6 - 10.2 mg/dL 07/11/2023 12:32 PM [facility] LABORATORY [facility] BUN 11 6 - 20 mg/dL 07/11/2023 12:32 PM [facility]. [facility] CREATININE 0.92 0.67 - 1.17 mg/dL 07/11/2023 12:32 PM [facility] LABORATORY [facility]. [facility] GLUCOSE 80 74 - 99 mg/dL 07/11/2023 12:32 PM [facility] LABORATORY [facility] TOTAL PROTEIN 7.8 6.7 - 8.6 g/dL 07/11/2023 12:32 PM [facility] ALBUMIN 3.8 3.5 - 5.2 g/dL 07/11/2023 12:32 PM [facility] BILIRUBIN TOTAL <0.2(L) 0.3 - 1.2 mg/dL 07/11/2023 12:32 PM [facility] ALKALINE PHOSPHATASE 79 40 - 129 U/L 07/11/2023 12:32 PM [facility] AST 18 <41 U/L 07/11/2023 12:32 PM [facility] Comment:Hemolysis present. R esult may be falsely elevated. ALT 11 <42 U/L 07/11/2023 12:32 PM [facility] GFR >60 >=60 mL/min/1.7 3 sq meter 07/11/2023 12:32 PM [facility] Comment:eGFR calculated with 2020 CKD-EPI equation. Vegetarian diet, extremely high or low muscle mass, and may affect results. Cystatin C with Glomerular Filtration Rate is a suitable alternative for these patients. ANION GAP 5(L) 8 - 16 mmol/L 07/11/2023 12:32 PM [facility] Blood Venipuncture / Unknown 07/11/2023 11:50 AM PRODUCT STRATEGY DIRECTOR 07/11/2023 11:57 AM PRODUCT STRATEGY DIRECTOR Narrative [facility] - 07/11/2023 12:32 PM PRODUCT STRATEGY DIRECTOR Samples containing indocyanine green cause interferences on Total and/or Direct Bilirubin and must not be measured. us Vin Alston MD CHEMISTRY ORDERABLES Final Resul t [id number] [address] [place] [address] * (ABNORMAL) CBC WITH DIFFERENTIAL (07/11/2023 11:50 AM PRODUCT STRATEGY DIRECTOR) WBC 3.9(L) 4.0 - 9.8 K/uL 07/11/2023 12:15 PM [facility] RBC 5.14 4.50 - 5.40 M/uL 07/11/2023 12:15 PM PRODUCT STRATEGY DIRECTOR [employer] LABORATORY SERVICES - [facility] HEMOGLOBIN 13.2(L) 13.6 - 16.5 g/dL 07/11/2023 12:15 PM PRODUCT STRATEGY DIRECTOR [employer] LABORATORY SERVICES - [facility] HEMATOCRIT 43.3 40.0 - 48.0 % 07/11/2023 12:15 PM PRODUCT STRATEGY DIRECTOR [employer] [facility]ORATORY SERVICES - [facility] MCV 84.2 82.0 - 99.0 fL 07/11/2023 12:15 PM PRODUCT STRATEGY DIRECTOR [employer] [facility]ORATORY SERVICES - [facility] MCH 25.7(L) 27.2 - 32.6 pg 07/11/2023 12:15 PM PRODUCT STRATEGY DIRECTOR [employer] LABORATORY SERVICES - [facility] MCHC 30.5(L) 31.5 - 35.5 g/dL 07/11/2023 12:15 PM PRODUCT STRATEGY DIRECTOR [employer] LABORATORY SERVICES - . [facility] RDW 16.8(H) 11.5 - 14.5 % 07/11/2023 12:15 PM PRODUCT STRATEGY DIRECTOR [employer] LABORATORY SERVICES - [facility] RDW-STDEV 51.9(H) 37.1 - 48.7 fL 07/11/2023 12:15 PM PRODUCT STRATEGY DIRECTOR [employer] [facility] SERVICES - [facility] PLATELETS 271 140 - 350 K/uL 07/11/2023 12:15 PM PRODUCT STRATEGY DIRECTOR [employer] LABORATORY SERVICES - . [facility] MPV 9.5 9.3 - 12.4 fL 07/11/2023 12:15 PM PRODUCT STRATEGY DIRECTOR [employer] [facility] - [facility] NEUTROPHILS 39 % 07/11/2023 12:15 PM PRODUCT STRATEGY DIRECTOR [employer] [facility] - [facility] LYMPHOCYTES 49 % 07/11/2023 12:15 PM PRODUCT STRATEGY DIRECTOR [employer] [facility] - [facility] MONOCYTES 8 % 07/11/2023 12:15 PM PRODUCT STRATEGY DIRECTOR [employer] [facility] - [facility] EOSINOPHILS 3 % 07/11/2023 12:15 PM PRODUCT STRATEGY DIRECTOR [employer] [facility] - [facility] BASOPHILS 1 % 07/11/2023 12:15 PM PRODUCT STRATEGY DIRECTOR [employer] LABORATORY SERVICES - . [facility] IMMATURE GRANULOCYTES 0 % 07/11/2023 12:15 PM PRODUCT STRATEGY DIRECTOR [employer] LABORATORY SERVICES - . [facility] NEUTROPHIL ABSOLUTE 1.52(L) 1.90 - 7.00 K/uL 07/11/2023 12:15 PM PRODUCT STRATEGY DIRECTOR [employer] LABORATORY SERVICES - . [facility] LYMPHOCYTE ABSOLUTE 1.91 0.70 - 4.50 K/uL 07/11/2023 12:15 PM PRODUCT STRATEGY DIRECTOR [facility] LABORATORY [facility] MONOCYTE ABSOLUTE 0.32 0.10 - 1.30 K/uL 07/11/2023 12:15 PM PRODUCT STRATEGY DIRECTOR [facility] LABORATORY [facility] EOSINOPHIL ABSOLUTE 0.11 0.00 - 0.70 K/uL 07/11/2023 12:15 PM [facility] LABORATORY [facility] BASOPHILS ABSOLUTE 0.03 0.00 - 0.20 K/uL 07/11/2023 12:[address] [facility] [employer] LABORATORY [facility] IMMATURE GRANULOCYTES ABSOLUTE 0.01 0.00 - 0.03 K/uL 07/11/2023 12:15 PM [facility] LABORATORY [facility]. [facility] Blood Venipuncture / Unknown 07/11/2023 11:50 AM PRODUCT STRATEGY DIRECTOR 07/11/2023 11:57 AM PRODUCT STRATEGY DIRECTOR Vin Alston MD HEMATOLOGY ORDERABLES Final Resu lt [facility]# [id number] 5 [facility] [place] [address] documented in this encounter Visit Diagnoses Diagnosis Bipolar disorder, current episode depressed, severe- Primary Severe depressed bipolar I disorder without psychotic features Bipolar I disorder, most recent episode (or current) depressed, severe, without mention of psychotic behavior HIV infection, unspecified symptom status Contusion of multiple sites of right lower extremity, initial encounter RENEE (generalized anxiety disorder) Generalized anxiety disorder Acute stress disorder Other acute reactions to stress Severe depressed bipolar I disorder without psychotic features Bipolar I disorder, most recent episode (or current) depressed, severe, without mention of psychotic behavior documented in this encounter Administered Medications Inactive Administered Medications - up to 3 most recent administrations Medication Order MAR Action Action Date Dose Rate Site acetaminophen (TYLENOL) tablet 650 mg 650 mg, Oral, EVERY 6 HOURS PRN, Starting on Sun07/11/23 at 1828, Until Sun07/16/23 at 1549, Other (See Comment), See Admin Instructions, Routine Given 07/13/2023 5:08 AM PRODUCT STRATEGY DIRECTOR 650 mg Given 07/11/2023 6:48 PM PRODUCT STRATEGY DIRECTOR 650 mg aluminum - magnesium - simethicone (MYLANTA) 200-200-20 mg/5 mL oral suspension 30 mL 30 mL, Oral, EVERY 6 HOURS PRN, Starting on Sun07/11/23 at 1752, Until Sun07/16/23 at 1549, Other (See Comment), GI Upset, Routine ARIPiprazole (ABILIFY) tablet 5 mg 5 mg, Oral, DAILY, First dose on Sun07/12/23 at 0930, Until Discontinued, RoutineIndications:bipolar disorder Given 07/16/2023 7:59 AM PRODUCT STRATEGY DIRECTOR 5 mg Given 07/15/2023 9:18 AM PRODUCT STRATEGY DIRECTOR 5 mg Given 07/14/2023 10:30 AM PRODUCT STRATEGY DIRECTOR 5 mg benztropine (COGENTIN) injection 1 mg 1 mg, IM, EVERY 12 HOURS PRN, Starting on Sun07/11/23 at 1752, Until Sun07/16/23 at 1549, Other (See Comment), EPS Symptoms: dystonia, parkinsonisms, or tardive dyskinesia, Routine benztropine (COGENTIN) tablet 1 mg 1 mg, Oral, EVERY 12 HOURS PRN, Starting on Sun07/11/23 at 1752, Until Sun07/16/23 at 1549, Other (See Comment), EPS Symptoms: dystonia, parkinsonisms, or tardive dyskinesia, Routine dyfshnmjyip-jivmavskivvkz-rsfluogbc alafenam (BIKTARVY) 50-200-25 mg per tablet 1 Tablet 1 Tablet, Oral, DAILY, First dose on Sun07/12/23 at 0900, Until Discontinued, Routine, Previous Med: njteileinxv-kporugobtppqv-rqiqzoaoj alafenam (Biktarvy) 50-200-25 mg Tablet - Orig Sig - Take 1 Tablet by mouth daily. Given 07/16/2023 7:59 AM PRODUCT STRATEGY DIRECTOR 1 T ablet Given 07/15/2023 9:18 AM PRODUCT STRATEGY DIRECTOR 1 Tablet Given 07/14/2023 10:30 AM PRODUCT STRATEGY DIRECTOR 1 Tablet diphenhydrAMINE (BENADRYL) injection 50 mg 50 mg, IM, EVERY 6 HOURS PRN, Starting on Sun07/12/23 at 0918, Until Sun07/16/23 at 1549, Other (See Comment), extrapyramidal symptom prevention, Routine diphenhydrAMINE (BENADRYL) tablet 50 mg 50 mg, Oral, EVERY 4 HOURS PRN, Starting on Sun07/12/23 at 0919, Until Sun07/16/23 at 1549, Restlessness, Agitation, Routine doxepin (SINEquan) capsule 25 mg 25 mg, Oral, NIGHTLY PRN, Starting on Sun07/13/23 at 1301, Until Sun07/16/23 at 1549, Other (See Comment), Insomnia, RoutineIndications:insomnia Given 07/15/2023 8:30 PM PRODUCT STRATEGY DIRECTOR 25 mg Given 07/14/2023 8:05 PM PRODUCT STRATEGY DIRECTOR 25 mg doxycycline hyclate (VIBRAMYCIN) capsule 100 mg 100 mg, Oral, TWO TIMES DAILY, 14 doses, First dose on Sun07/11/23 at 1245, Last dose on Sun07/18/23 at 0600, Routine, Antibiotic Indication: Urinary Tract Infection(UTI) / Infection Given 07/11/2023 1:14 PM PRODUCT STRATEGY DIRECTOR 100 mg haloperidoL (HALDOL) tablet 5 mg 5 mg, Oral, EVERY 4 HOURS PRN, Starting on Sun07/12/23 at 0919, Until Sun07/16/23 at 1549, Agitation, Routine haloperidol lactate (HALDOL) injection 5 mg 5 mg, IM, EVERY 6 HOURS PRN, Starting on Sun07/12/23 at 0918, Until Sun07/16/23 at 1549, Other (See Comment), agitated psychosis, Routine hydrOXYzine HCL (ATARAX) tablet 50 mg 50 mg, Oral, EVERY 1 HOUR PRN, 2 doses, Starting on Sun07/11/23 at 1753, Until Sun07/12/23 at 0919, Anxiety, Routine Given 07/11/2023 6:48 PM PRODUCT STRATEGY DIRECTOR 50 mg hydrOXYzine HCL (ATARAX) tablet 50 mg 50 mg, Oral, EVERY 6 HOURS PRN, Starting on Sun07/12/23 at 0930, Until Sun07/16/23 at 1549, Anxiety, Routine Given 07/15/2023 1:40 PM PRODUCT STRATEGY DIRECTOR 50 mg Given 07/14/2023 6:16 PM PRODUCT STRATEGY DIRECTOR 50 mg Given 07/13/2023 4:01 PM PRODUCT STRATEGY DIRECTOR 50 mg ibuprofen (MOTRIN) tablet 400 mg 400 mg, Oral, EVERY 6 HOURS PRN, Starting on Sun07/11/23 at 1828, Until Sun07/16/23 at 1549, Other (See Comment), See Admin Instructions, Routine Given 07/15/2023 8:29 PM PRODUCT STRATEGY DIRECTOR 400 mg Given 07/14/2023 7:24 PM PRODUCT STRATEGY DIRECTOR 400 mg Given 07/13/2023 1:19 AM PRODUCT STRATEGY DIRECTOR 400 mg Lidocaine 4 % topical patch 1 Patch 1 Patch, Topical, DAILY, First dose on Sun07/12/23 at 1030, Until Discontinued, Routine Applied 07/16/2023 7:59 AM PRODUCT STRATEGY DIRECTOR 1 Patch Back, Left Applied 07/14/2023 10:30 AM PRODUCT STRATEGY DIRECTOR 1 Patch B ack, Left Applied 07/13/2023 5:07 AM PRODUCT STRATEGY DIRECTOR 1 Patch Ba ck, Left loperamide (IMODIUM) capsule 2 mg 2 mg, Oral, EVERY 4 HOURS PRN, Starting on Sun07/11/23 at 1752, Until Sun07/16/23 at 1549, Diarrhea/Loose Stools, Routine LORazepam (ATIVAN) tablet 1 mg 1 mg, Oral, EVERY 4 HOURS PRN, Starting on Sun07/11/23 at 1133, Until Sun07/12/23 at 0919, Anxiety, Discomfort, Routine Given 07/11/2023 12:25 PM PRODUCT STRATEGY DIRECTOR 1 mg polyethylene glycol (MIRALAX) packet 17 Gram 17 Gram, Oral, EVERY 12 HOURS PRN, Starting on Sun07/11/23 at 1752, Until Sun07/16/23 at 1549, Constipation, or over 48 hours since last BM, Routine prazosin (MINIPRESS) capsule 1 mg 1 mg, Oral, DAILY AT BEDTIME, First dose on Sun07/12/23 at 2100, Until Discontinued, RoutineIndications:Chronic PTSD with Trauma Nightmares Given 07/15/2023 8:30 PM PRODUCT STRATEGY DIRECTOR 1 mg Given 07/14/2023 8:05 PM PRODUCT STRATEGY DIRECTOR 1 mg Given 07/13/2023 8:51 PM PRODUCT STRATEGY DIRECTOR 1 mg promethazine (PHENERGAN) tablet 25 mg 25 mg, Oral, EVERY 4 HOURS PRN, Starting on Sun07/11/23 at 1752, Until Sun07/16/23 at 1549, Nausea, Routine sertraline (ZOLOFT) tablet 100 mg 100 mg, Oral, DAILY, First dose on Sun07/12/23 at 0930, Until Discontinued, Routine, Previous Med: sertraline (ZOLOFT) 100 mg tablet - Orig Sig - Take 100 mg by mouth daily. Given 07/16/2023 7:59 AM PRODUCT STRATEGY DIRECTOR 100 mg Given 07/15/2023 9:18 AM PRODUCT STRATEGY DIRECTOR 100 mg Given 07/14/2023 10:30 AM PRODUCT STRATEGY DIRECTOR 100 mg traZODone (DESYREL) tablet 100 mg 100 mg, Oral, NIGHTLY PRN, Starting on Sun07/11/23 at 1752, Until Sun07/13/23 at 1301, Insomnia, Routine Given 07/12/2023 8:37 PM PRODUCT STRATEGY DIRECTOR 100 mg documented in this encounter Active and Recently Administered Medications Times are shown in PRODUCT STRATEGY DIRECTOR. Scheduled Medication Order 07/14/2023 07/15/2023 07/16/2023 ARIPiprazole (ABILIFY) tablet 5 mg 5 mg, Oral, DAILY, First dose on Lara 07/12/23 at 0930, Until Discontinued, Routine 1030 (Given - Provider: Arnold Menon RN) 0918 (Given - Provider: Teresa Noriega RN) 0759 (Given - Provider: Wesley Menjivar RN) bictegravir-emtricita bine-tenofovir alafenam (BIKTARVY) 50-200-25 mg per tablet 1 Tablet 1 Tablet, Oral, DAILY, First dose on Lara 07/12/23 at 0900, Until Discontinued, Routine, Previous Med: bictegravir-emtricita bine-tenofovir alafenam (Biktarvy) 50-200-25 mg Tablet - Orig Sig - Take 1 Tablet by mouth daily. 1030 (Given - Provider: Arnold Menon RN) 0918 (Given - Provider: Teresa Noriega, VICTOR MANUEL) 0759 (Given - Provider: Wesley Menjivar, VICTOR MANUEL) Lidocaine 4 % topical patch 1 Patch 1 Patch, Topical, DAILY, First dose on Lara 07/12/23 at 1030, Until Discontinued, Routine 1030 (Applied - Provider: Arnold Menon RN)2230 (Removed - Provider: Marcie Mascorro RN) 0600 (Refused - Provider: Teresa Noriega, VICTOR MANUEL) 0759 (Applied - Provider: Wesley Menjivar RN)1315 (Due: Removed - Provider: PROVIDER, DISCHARGE PATIENT - Comment: Time automatically adjusted from order being discontinued) prazosin (MINIPRESS) capsule 1 mg 1 mg, Oral, DAILY AT BEDTIME, First dose on Sun07/12/23 at 2100, Until Discontinued, Routine 2004 (Given - Provider: Marcie Mascorro, RN) 2029 (Given - Provider: Marcie Mascorro RN) sertraline (ZOLOFT) tablet 100 mg 100 mg, Oral, DAILY, First dose on Sun07/12/23 at 0930, Until Discontinued, Routine, Previous Med: sertraline (ZOLOFT) 100 mg tablet - Orig Sig - Take 100 mg by mouth daily. 1030 (Given - Provider: Arnold Menon RN) 0918 (Given - Provider: Teresa Noriega RN) 0759 (Given - Provider: Wesley Menjivar RN) PRN Medication Order 07/14/2023 07/15/2023 07/16/2023 acetaminophen (TYLENOL) tablet 650 mg 650 mg, Oral, EVERY 6 HOURS PRN, Starting on Sun07/11/23 at 1828, Until Sun07/16/23 at 1549, Other (See Comment), See Admin Instructions, Routine aluminum - magnesium - simethicone (MYLANTA) 200-200-20 mg/5 mL oral suspension 30 mL 30 mL, Oral, EVERY 6 HOURS PRN, Starting on Sun07/11/23 at 1752, Until Sun07/16/23 at 1549, Other (See Comment), GI Upset, Routine benztropine (COGENTIN) injection 1 mg(Linked Group 1) 1 mg, IM, EVERY 12 HOURS PRN, Starting on Sun07/11/23 at 1752, Until Sun07/16/23 at 1549, Other (See Comment), EPS Symptoms: dystonia, parkinsonisms, or tardive dyskinesia, Routine benztropine (COGENTIN) tablet 1 mg(Linked Group 1) 1 mg, Oral, EVERY 12 HOURS PRN, Starting on Sun07/11/23 at 1752, Until Sun07/16/23 at 1549, Other (See Comment), EPS Symptoms: dystonia, parkinsonisms, or tardive dyskinesia, Routine diphenhydrAMINE (BENADRYL) injection 50 mg(Linked Group 2) 50 mg, IM, EVERY 6 HOURS PRN, Starting on Sun07/12/23 at 0918, Until Sun07/16/23 at 1549, Other (See Comment), extrapyramidal symptom prevention, Routine diphenhydrAMINE (BENADRYL) tablet 50 mg(Linked Group 3) 50 mg, Oral, EVERY 4 HOURS PRN, Starting on Sun07/12/23 at 0919, Until Sun07/16/23 at 1549, Restlessness, Agitation, Routine doxepin (SINEquan) capsule 25 mg 25 mg, Oral, NIGHTLY PRN, Starting on Sun07/13/23 at 1301, Until Sun07/16/23 at 1549, Other (See Comment), Insomnia, Routine 2004 (Given - Provider: Marcie Mascorro RN) 2029 (Given - Provider: Marcie Mascorro RN) haloperidoL (HALDOL) tablet 5 mg(Linked Group 3) 5 mg, Oral, EVERY 4 HOURS PRN, Starting on Sun07/12/23 at 0919, Until Sun07/16/23 at 1549, Agitation, Routine haloperidol lactate (HALDOL) injection 5 mg(Linked Group 2) 5 mg, IM, EVERY 6 HOURS PRN, Starting on Sun07/12/23 at 0918, Until Sun07/16/23 at 1549, Other (See Comment), agitated psychosis, Routine hydrOXYzine HCL (ATARAX) tablet 50 mg 50 mg, Oral, EVERY 6 HOURS PRN, Starting on Sun07/12/23 at 0930, Until Sun07/16/23 at 1549, Anxiety, Routine 181 (Given - Provider: Arnold Menon RN) 134 (Given - Provider: Teresa Noriega RN) ibuprofen (MOTRIN) tablet 400 mg 400 mg, Oral, EVERY 6 HOURS PRN, Starting on Sun07/11/23 at 1828, Until Sun07/16/23 at 1549, Other (See Comment), See Admin Instructions, Routine 1923 (Given - Provider: Marcie Mascorro RN) 2028 (Given - Provider: Marcie Mascorro RN) loperamide (IMODIUM) capsule 2 mg 2 mg, Oral, EVERY 4 HOURS PRN, Starting on Sun07/11/23 at 1752, Until Sun07/16/23 at 1549, Diarrhea/Loose Stools, Routine polyethylene glycol (MIRALAX) packet 17 Gram 17 Gram, Oral, EVERY 12 HOURS PRN, Starting on Sun07/11/23 at 1752, Until Sun07/16/23 at 1549, Constipation, or over 48 hours since last BM, Routine promethazine (PHENERGAN) tablet 25 mg 25 mg, Oral, EVERY 4 HOURS PRN, Starting on Sun07/11/23 at 1752, Until Sun07/16/23 at 1549, Nausea, Routine Linked Groups Order Group 1: benztropine (COGENTIN) tablet 1 mgJump to med 1 mg, Oral, EVERY 12 HOURS PRN, Starting on Sun07/11/23 at 1752, Until Sun07/16/23 at 1549, Other (See Comment), EPS Symptoms: dystonia, parkinsonisms, or tardive dyskinesia, Routine Or benztropine (COGENTIN) injection 1 mgJump to med 1 mg, IM, EVERY 12 HOURS PRN, Starting on Sun07/11/23 at 1752, Until Sun07/16/23 at 1549, Other (See Comment), EPS Symptoms: dystonia, parkinsonisms, or tardive dyskinesia, Routine Group 2: haloperidol lactate (HALDOL) injection 5 mgJump to med 5 mg, IM, EVERY 6 HOURS PRN, Starting on Sun07/12/23 at 0918, Until Sun07/16/23 at 1549, Other (See Comment), agitated psychosis, Routine And diphenhydrAMINE (BENADRYL) injection 50 mgJump to med 50 mg, IM, EVERY 6 HOURS PRN, Starting on Sun07/12/23 at 0918, Until Sun07/16/23 at 1549, Other (See Comment), extrapyramidal symptom prevention, Routine Group 3: haloperidoL (HALDOL) tablet 5 mgJump to med 5 mg, Oral, EVERY 4 HOURS PRN, Starting on Sun07/12/23 at 0919, Until Sun07/16/23 at 1549, Agitation, Routine And diphenhydrAMINE (BENADRYL) tablet 50 mgJump to med 50 mg, Oral, EVERY 4 HOURS PRN, Starting on Sun07/12/23 at 0919, Until Sun07/16/23 at 1549, Restlessness, Agitation, Routine documented in this encounter
--- OUTSIDE RECORDS SUMMARY | 2024-08-10 03:48 | XMS_ITS | Encounter Summary ---
Author Organization [facility] Address [address] Attn: Epic Prelude ADT [place] [address] Care Team Providers Care Customer Accounts Advisor Name Role Phone Unavailable Primary Care Provider Unavailabl e Encounter Details Date Type Department Care Team (Latest Contact Info) Description 06/21/2020 Travel Social History Tobacco Use Types Packs/Day Years Used Date Smoking Tobacco: Never Smokeless Tobacco: Never Alcohol Use Standard Drinks/Week Comments Never 0 (1 standard drink = 0.6 oz pur e alcohol) Sex and Gender Information Value Date Recorded Sex Assigned at Not on file Legal Sex Male 9:34 AM EMERGENCY MEDICAL TECH Gender Identity Not on file Sexual Orientation Not on file COVID-19 Exposure Response Date Recorded In the last month, have you been in contact with someone who was confirmed or suspected to have Coronavirus / COVID-19? No / Unsure 06/21/2020 9:40 AM EMERGENCY MEDICAL TECH documented as of this encounter Plan of Treatment Not on file documented as of this encounter Visit Diagnoses Not on filedocumented in this encounter
--- OUTSIDE RECORDS SUMMARY | 2024-08-10 03:48 | XMS_ITS | Encounter Summary ---
Author Organization [facility] Address [address] [place] [address] Care Team Providers Care Sand Caster Apprentice Name Role Phone Unavailable Primary Care Provider Unavailabl e Reason for Visit * Reason Comments Medication Refill Encounter Details Date Type Department Care Team (Late st Contact Info) Description 02/13/2020 Refill [facility] [address] [facility] 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 LMR to please call for followup appt in clinic. 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
--- OUTSIDE RECORDS SUMMARY | 2024-08-10 03:48 | XMS_ITS | Encounter Summary ---
Author Organization [facility] Address [address] [place] [address] Care Team Providers Care Green End Man Name Role Phone Unavailable Primary Care Provider Unavailabl e Reason for Visit * Reason Comments Medication Refill Encounter Details Date Type Department Care Team (Late st Contact Info) Description 12/22/2019 [facility] [address] [place] [address] Rose Mary Wallace MD [address] [place] [address] Myelopathy associated with HIV infection Social History Tobacco Use Types Packs/Day Years Used Date Smoking Tobacco: Never Smokeless Tobacco: Never Alcohol Use Standard Drinks/Week Comments Never 0 (1 standard drink = 0.6 oz pur e alcohol) Sex and Gender Information Value Date Recorded Sex Assigned at Not on file 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 * Telephone Encounter - Jean-Paul Ortiz RN - 12/22/2019 10:45 AM CDT Hasn't been seen in for awhile due to transportation and Covid issues. 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
--- OUTSIDE RECORDS SUMMARY | 2024-08-10 03:48 | XMS_ITS | Encounter Summary ---
Author Organization [facility] Address [address] [place] [address] Care Team Providers Care Sem Manager Name Role Phone Unavailable Primary Care Provider Unavailabl e Reason for Visit * Reason Onset Date Comments Medication Review 09/04/2019 Encounter Details Date Type Department Care Team (Late st Contact Info) Description 09/04/2019 Telephone [facility] [address] [place] [address] Rose Mary Wallace MD [address] [place] [address] Medication Review Social History Tobacco Use Types Packs/Day Years Used Date Smoking Tobacco: Never Smokeless Tobacco: Never Alcohol Use Standard Drinks/Week Comments Never 0 (1 standard drink = 0.6 oz pur e alcohol) Sex and Gender Information Value Date Recorded Sex Assigned at Not on file Legal Sex Male 9:34 AM 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 Wallace: He can pick up worker the cream at the [facility] pharmacy for a $5 copay. I returned call to [facility], spoke with Lydia who took VO for Lidocaine 2.5% cream to be applied to perianal area BID as needed. ATRY ASSISTANT * Telephone Encounter - Tash Rowe RN - 09/04/2019 12:16 PM CST Pharmacist calls to state insurance will not cover hydrocortisone suppository and lidocaine ointment prescriptions ordered today. She states insurance will cover hydrocorisone cream. I explained plan to send message to MD for review. ATRY ASSISTANT documented in this encounter Plan of Treatment Not on file documented as of this encounter Visit Diagnoses Not on filedocumented in this encounter
--- OUTSIDE RECORDS SUMMARY | 2024-08-10 03:48 | XMS_ITS | Encounter Summary ---
Author Organization [facility] Address [address] [place] [address] Care Team Providers Care Principal Military Analyst Name Role Phone Unavailable Primary Care Provider Unavailabl e Reason for Visit * Reason Comments Medication Refill Encounter Details Date Type Department Care Team (Late st Contact Info) Description 07/02/2020 Refill [facility] [address] [facility] [place] [address] Mary Case MD NO ADDRESS ON FILE Myelopathy associated with HIV infection Social History Tobacco Use Types Packs/Day Years Used Date Smoking Tobacco: Never Smokeless Tobacco: Never Alcohol Use Standard Drinks/Week Comments Never 0 (1 standard drink = 0.6 oz pur e alcohol) Sex and Gender Information Value Date Recorded Sex Assigned at Not on file Legal Sex Male 9:34 AM PANEL EDGE SEALER Gender Identity Not on file Sexual Orientation Not on file COVID-19 Exposure Response Date Recorded In the last month, have you been in contact with someone who was confirmed or suspected to have Coronavirus / COVID-19? No / Unsure 06/21/2020 9:40 AM PANEL EDGE SEALER documented as of this encounter Miscellaneous Notes * Telephone Encounter - Chelita Sin RN - 07/02/2020 10:01 AM CST Refill request. 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
--- OUTSIDE RECORDS SUMMARY | 2024-08-10 03:48 | XMS_ITS | Encounter Summary ---
Author Organization [facility] Address 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
--- OUTSIDE RECORDS SUMMARY | 2024-08-10 03:48 | XMS_ITS | Encounter Summary ---
Author Organization [facility] Address [address] [place] [address] Care Team Providers Care Operations Research Scientist Name Role Phone Unavailable Primary Care Provider Unavailabl e Reason for Visit * Reason Onset Date Comments Follow Up 12/29/2019 Encounter Details Date Type Department Care Team (Late st Contact Info) Description 12/29/2019 Telephone [facility] [address] [facility] [place] [id number] Divya Mccullough Follow Up Social History Tobacco Use Types Packs/Day Years Used Date Smoking Tobacco: Never Smokeless Tobacco: Never Alcohol Use Standard Drinks/Week Comments Never 0 (1 standard drink = 0.6 oz pur e alcohol) Sex and Gender Information Value Date Recorded Sex Assigned at Not on file Legal Sex Male 9:34 AM AUCTION CLERK Gender Identity Not on file Sexual Orientation Not on file documented as of this encounter Miscellaneous Notes * Telephone Encounter - Divya Mccullough LCSW - 12/29/2019 3:50 PM CDT Attempted to reach pt again at [phone], left msg on vm requesting return call. * Telephone Encounter - Divya Mccullough LCSW - 12/29/2019 11:46 AM CDT Attempted to reach pt again to reschedule, left msg on vm. * Telephone Encounter - Divya Mccullough LCSW - 12/29/2019 10:45 AM CDT Pt calls in, his car broke down and he cannot make his appt today at 10:50a. Pt would like to reschedule. Explained I would check with Dr. Wallace and call pt back. Notified Dr. Wallace who indicates pt can be rescheduled for Tu PM, Sun AM, AM or Sun AM this week. Called pt back at [phone], explained we can schedule this Sun AM if pt is agreeable? Left msg on requesting return call. documented in this encounter Plan of Treatment Not on file documented as of this encounter Visit Diagnoses Not on filedocumented in this encounter
--- OUTSIDE RECORDS SUMMARY | 2024-08-10 03:48 | XMS_ITS | Encounter Summary ---
Author Organization [facility] Address 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
--- OUTSIDE RECORDS SUMMARY | 2024-08-10 03:48 | XMS_ITS | Encounter Summary ---
Author Organization [facility] Address [address] [place] [address] Care Team Providers Care Any Commodity Sales Deliverer Name Role Phone Unavailable Primary Care Provider Unavailabl e Encounter Details Date Type Department Care Team (Late st Contact Info) Description 07/24/2023 External Device Data ST[place] ABSTRACTION Provider, Abstract [...] on file Legal Sex Male 9:34 AM SHAMPOO TECHNICIAN Gender Identity Not on file Sexual Orientation Not on file documented as of this encounter Plan of Treatment Not on file documented as of this encounter Visit Diagnoses Not on filedocumented in this encounter
--- OUTSIDE RECORDS SUMMARY | 2024-08-10 03:48 | XMS_ITS | Encounter Summary ---
Author Organization [facility] Address [address] [place] [address] Care Team Providers Care Cnc Mechanic Name Role Phone Unavailable Primary Care Provider Unavailabl e Encounter Details Date Type Department Care Team (Late st Contact Info) Description 09/03/2019 Abstract [facility] [address] [place] [address] Mary Case MD NO ADDRESS ON FILE Social History Tobacco Use Types Packs/Day Years Used Date Smoking Tobacco: Never Smokeless Tobacco: Never Alcohol Use Standard Drinks/Week Comments Never 0 (1 standard drink = 0.6 oz pur e alcohol) Sex and Gender Information Value Date Recorded Sex Assigned at Not on file Legal Sex Male 9:34 AM DIRECTOR OF LITIGATION Gender Identity Not on file Sexual Orientation [...]
--- OUTSIDE RECORDS SUMMARY | 2024-08-10 03:48 | XMS_ITS | Encounter Summary ---
Author Organization [facility] Address [address] [place] [address] Care Team Providers Care Last Inserter Name Role Phone Unavailable Primary Care Provider [...] Legal Sex Male 9:34 AM DIRECTOR OF EVENT SALES Gender Identity Not on file Sexual Orientation Not on file documented as of this encounter Plan of Treatment Not on file documented as of this encounter Visit Diagnoses Not on filedocumented in this encounter
--- OUTSIDE RECORDS SUMMARY | 2024-08-10 03:48 | XMS_ITS | Encounter Summary ---
Author Organization [facility] Address [address] Attn: Epic Prelude ADT [place] [address] Care Team Providers Care Painting Worker Name Role Phone Unavailable Primary Care Provider Unavailabl e Encounter Details Date Type Department Care Team (Latest Contact Info) Description 06/09/2020 Travel Social History Tobacco Use Types Packs/Day Years Used Date Smoking Tobacco: Never Smokeless Tobacco: Never Alcohol Use Standard Drinks/Week Comments Never 0 (1 standard drink = 0.6 oz pur e alcohol) Sex and Gender Information Value Date Recorded Sex Assigned at Not on file Legal Sex Male 9:34 AM GROUP DIRECTOR EXPERIENCE Gender Identity Not on file Sexual Orientation Not on file COVID-19 Exposure Response Date Recorded In the last month, have you been in contact with someone who was confirmed or suspected to have Coronavirus / COVID-19? No / Unsure 06/09/2020 11:24 AM GROUP DIRECTOR EXPERIENCE documented as of this encounter Plan of Treatment Not on file documented as of this encounter Visit Diagnoses Not on filedocumented in this encounter
--- OUTSIDE RECORDS SUMMARY | 2024-08-10 03:48 | XMS_ITS | Encounter Summary ---
Author Organization [facility] Address [address] Attn: Epic Prelude ADT [place] [address] Care Team Providers Care Input Output Clerk Name Role Phone Unavailable Primary Care Provider Unavailabl e Encounter Details Date Type Department Care Team (Latest Contact Info) Description 05/05/2020 Travel Social History Tobacco Use Types Packs/Day Years Used Date Smoking Tobacco: Never Smokeless Tobacco: Never Alcohol Use Standard Drinks/Week Comments Never 0 (1 standard drink = 0.6 oz pur e alcohol) Sex and Gender Information Value Date Recorded Sex Assigned at Not on file Legal Sex Male 9:34 AM AD COMPOSITOR Gender Identity Not on file Sexual Orientation [...]
--- OUTSIDE RECORDS SUMMARY | 2024-08-10 03:48 | XMS_ITS | Encounter Summary ---
Author Organization [facility] Address [address] [place] [address] Care Team Providers Care Secretary Administrative Assistant Name Role Phone Unavailable Primary Care Provider Unavailabl e Reason for Visit * Reason Onset Date Comments Transportation Issues 09/18/2019 Encounter Details Date Type Department Care Team (Late st Contact Info) Description 09/18/2019 Telephone [facility] [address] [place] [address] Karen Franklin LCSW Transportation Issues Social History Tobacco Use Types Packs/Day Years Used Date Smoking Tobacco: Never Smokeless Tobacco: Never Alcohol Use Standard Drinks/Week Comments Never 0 (1 standard drink = 0.6 oz pur e alcohol) Sex and Gender Information Value Date Recorded Sex Assigned at Not on file Legal Sex Male 9:34 AM TIRE CURER Gender Identity Not on file Sexual Orientation Not on file documented as of this encounter Miscellaneous Notes * Telephone Encounter - Karen Franklin LCSW - 09/18/2019 3:00 PM TIRE CURER Rec'd call from pt, he wanted to provide update that he has scheduled Call a Ride assessment for 10/20/19. CURER documented in this encounter Plan of Treatment Not on file documented as of this encounter Visit Diagnoses Not on filedocumented in this encounter
--- OUTSIDE RECORDS SUMMARY | 2024-08-10 03:48 | XMS_ITS | Encounter Summary ---
Author Organization [facility] Address [address] [place] [address] Care Team Providers Care Inhalation Therapy Aides Teacher Name Role Phone Unavailable Primary Care Provider Unavailabl e Reason for Visit * Reason Onset Date Comments changing med order 09/16/2019 Encounter Details Date Type Department Care Team (Late st Contact Info) Description 09/16/2019 Telephone [facility] [address] [place] [address] Anjel Santamaria MD [address] [phone] changing med order Social History Tobacco Use Types Packs/Day Years Used Date Smoking Tobacco: Never Smokeless Tobacco: Never Alcohol Use Standard Drinks/Week Comments Never 0 (1 standard drink = 0.6 oz pur e alcohol) Sex and Gender Information Value Date Recorded Sex Assigned at Not on file Legal Sex Male 9:34 AM PARLIAMENTARY LIBRARIAN Gender Identity Not on file Sexual Orientation Not on file documented as of this encounter Miscellaneous Notes * Telephone Encounter - Roxanne Calderon - 09/16/2019 3:33 PM CST Dasia RUSH from Dr. Santamaria's office called in orders for Triamcinolone 0.1% ointment in place of Clobetasol with same directions. Order placed in Epic. IAMENTARY LIBRARIAN documented in this encounter Plan of Treatment Not on file documented as of this encounter Visit Diagnoses Not on filedocumented in this encounter
--- OUTSIDE RECORDS SUMMARY | 2024-08-10 03:49 | XMS_ITS | Encounter Summary ---
Author Organization [facility] Address [address] [place] [address] Care Team Providers Care Residential Sales Associate Name Role Phone Unavailable Primary Care Provider Unavailabl e Reason for Visit * Reason Onset Date Comments HIV Positive 08/14/2019 Encounter Details Date Type Department Care Team (Late st Contact Info) Description 08/14/2019 Telephone [facility] [address] [place] [address] Rose Mary Wallace MD [address] [place] [address] HIV Positive Social History Tobacco Use Types Packs/Day Years Used Date Smoking Tobacco: Never Smokeless Tobacco: Never Alcohol Use Standard Drinks/Week Comments Never 0 (1 standard drink = 0.6 oz pur e alcohol) Sex and Gender Information Value Date Recorded Sex Assigned at Not on file Legal Sex Male 9:34 AM MANNEQUIN MOLDER Gender Identity Not on file Sexual Orientation Not on file documented as of this encounter Miscellaneous Notes * Telephone Encounter - Rose Mary Wallace MD - 08/14/2019 11:17 AM MANNEQUIN MOLDER Spoke with patient about recent abnormal MRI finding in the ED. Confirmed that patient will be coming for his visit tomorrow to establish care. Patient previously saw Dr. Edwards and received samples of Dovato which he confirms he is currently taking. He has approximately 2 to 3 weeks left. I discussed plan with infectious disease by phone today. -Given known diagnosis of syphilis, patient will need to complete recommended course of IM benzathine penicillin injections. Patient received 1 dose in the emergency department on the . Dose #2 should be given at a nurse visit on August 18. Third and final dose should be given at nurse visit 1week later to complete 3 total treatments 1 week apart. Patient will likely need follow-up blood testing to ensure cure after completing course of injections. 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 Current expectation is that neurologic symptoms may improve with HIV treatment and recovery of counts, though this will be hard to predict at this time. -Patient will need to be prescribed Bactrim for pneumocystis prophylaxis -Patient will need to be prescribed azithromycin for WERO prophylaxis -Patient will need a refill on Dovato Patient will call [phone] today to start process of getting enrolled with an HIV disability manager and enrollment in the AIDS drug assistance program. At tomorrow's visit he will meet with Miranda to complete financial paperwork, meet with a provider to complete the plan above. He will also need to meetwith social work lecturer so that we can continue to coordinate his enrollment in eligible programs. Patient was grateful for the call and the encouragement. At this point he has strong intentions to continue with care. Patient is currently feeling a little bit overwhelmed with all processes he needs to follow. I encouraged him to ensure he continues show up for clinic visits and to be compliant with care, and we will help him throughout this process. Patient was positive by the end of the call and seemed quite hopeful for the future. EQUIN MOLDER documented in this encounter Plan of Treatment Not on file documented as of this encounter Visit Diagnoses Not on filedocumented in this encounter
--- OUTSIDE RECORDS SUMMARY | 2024-08-10 03:49 | XMS_ITS | Encounter Summary ---
Author Organization [facility] Address [address] [place] [address] Care Team Providers Care [place] Machine Operator Name Role Phone Unavailable Primary Care Provider Unavailabl e Reason for Referral * Eval and Treat (2-4 Days) - Closed Specialty Diagnoses / Procedures Referred By Contac t Referred To Contact General Surgery Diagnoses Rectal itching Rose Mary Wallace MD Phone: tel: fax: Lucho Tate MD [address] [facility] [address] [place] [address] Phone: tel: fax: Referral ID Status Reason Start Date Expiration Date V isits Requested Visits Authorized [id number] Closed CRS To Schedule (STL) 08/25/2019 08/25/2020 1 1 ERY PLATE REMOVER Reason for Visit * Reason Comments Immunization/Injection Reaction Encounter Details Date Type Department Care Team (Late st Contact Info) Description 08/25/2019 11:00 AM BATTERY PLATE REMOVER [facility] [address] [place] [address] Rose Mary Wallace MD [address] [place] [address] Syphilis (Primary Dx); Myelopathy associated with HIV infection; Rectal itching Social History Tobacco Use Types Packs/Day Years Used Date Smoking Tobacco: Never Smokeless Tobacco: Never Alcohol Use Standard Drinks/Week Comments Never 0 (1 standard drink = 0.6 oz pur e alcohol) Sex and Gender Information Value Date Recorded Sex Assigned at Not on file Legal Sex Male 9:34 AM BATTERY PLATE REMOVER Gender Identity Not on file Sexual Orientation Not on file documented as of this encounter Last Filed Vital Signs Vital Sign Reading Time Taken Comments Blood Pressure - - Pulse - - Temperature - - Respiratory Rate - - Oxygen Saturation - - Inhaled Oxygen Concentration - - Weight 65.8 kg (145 lb) 08/25/2019 11:34 AM BATTERY PLATE REMOVER Height - - Body Mass Index 19.67 08/15/2019 12:51 PM BATTERY PLATE REMOVER documented in this encounter Progress Notes * Rose Mary Wallace MD - 08/28/2019 1:05 PM CST Met with patient when he arrived for his Lamisil injection. Subjective: Patient continues to have anal itching. Some relief with sitz bath's and rectal suppositories. However still quite bothersome. He has continued to take his ART without difficulty. He continues to have some leg weakness and complains of neuropathic pain. Objective: Weight continues to trend up, has gained 10 pounds since starting ART. Weight 145 today. Neuro: Patient continues to have right lower extremity weakness but power is slightly improved frommy prior exam. Left lower extremity power within normal limits, right lower extremity 3+ out of 5. Previously patient could barely oppose gravity, but now he can oppose gravity and some resistance. Rectal: External hemorrhoids present, no lesions, papules, vesicles or visible lesions. Skin: Psoriatic rash on left mc much improved since starting topical steroids. 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 Previously discussed with Dr. Edwards. Anticipate symptoms are likely to improve with ART and viral suppression. Increasing gabapentin dose from 300 at bedtime to 300 3 times daily for better control of neuropathic pain. Rectal itching-differential is broad given CD4 count less than 50. Referral placed for colorectal surgery, has secured patient appointment for August 28 at 8:[address] Tate. ELL-VCUO-sixhoime Dovato daily, azithromycin q. Sunday, Bactrim daily. Repeat viral load and CD4 count in 2 weeks. Patient has follow-up with infectious disease in August. Depression: Patient is having significant situational depression and loss of identity associated with current illness. Not yet ready to take medications but is willing to think about it. Continue supportive care and screening for depression treatment. Positive RPR-patient patient with positive RPR titer. However, care everywhere reviewed and patienthad positive RPR in 2018 at [facility]. Per their records previous RPR titer was significantly higher thancurrent. May have already been adequately treated in the past. Regardless patient completed dose #2IM benzathine penicillin today. Supposed to return to clinic on Sunday for third dose. Social stressors-patient has met with regional machine adjuster leader case trim for [place] HIV program. He has completed a Medicaid application. His AIDS drug assistance program materials have been submitted. He has elected [place] [facility] [place] [facility] refills sincethey provide delivery. They can fill his medications through his AIDS drug assistance program benefits. And spouse to be touring possible housing options. Currently he is living in a long-term hotel. ERY PLATE REMOVER * Deya Go RN - 08/25/2019 11:21 AM CST Injection of Penecillin given to patient as ordered and charted. Patient tolerated well and Dr Wallace in to speak with patient ERY PLATE REMOVER documented in this encounter Miscellaneous Notes * Patient Instructions - Rose Mary Wallace MD - 08/25/2019 11:43 AM BATTERY PLATE REMOVER Referral was placed for colorectal surgery. Increase gabapentin to three times daily to better control nerve pain. I have placed an order for physical therapy. You can call and schedule at your convenience. Return to clinic Sunday for a physician follow up visit and to receive your third dose of penicillin. Your Dovato [place] be [place] into [facility] [place] which will [place] your Dovato to you. 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 NoIndications:Syphilis Given 08/25/2019 11:20 AM BATTERY PLATE REMOVER 2,400,000 Units Buttock, Left documented in this encounter
--- OUTSIDE RECORDS SUMMARY | 2024-08-10 03:49 | XMS_ITS | Encounter Summary ---
Author Organization [facility] Address [address] [place] [address] Care Team Providers Care Signals Officer Name Role Phone Unavailable Primary Care Provider Unavailabl e Reason for Visit * Reason Comments Leg Pain Pt ambulatory to tri age w/ c/o a limp to R leg w/ intermittent sharp pain since Thanks. Also reports being off balance since . Denies known injury. Reports being here recently and had neg. xrays. PT poor historian. Encounter Details Date Type Department Care Team (Late st Contact Info) Description 08/11/2019 4:06 PM PLASTIC CNC MACHINE OPERATOR - 08/11/2019 10:03 PM [facility] Emergency [facility] Emergency Department [address] [place] [address] Ernesto Romo MD Formerly [facility] [address] [id number] Kristan Sin MD [address] [place] [address] Myelopathy associated with HIV infection (Primary Dx); Right foot drop Discharge Disposition: Home or Self Care Social History Tobacco Use Types Packs/Day Years Used Date Smoking Tobacco: Never Smokeless Tobacco: Never Alcohol Use Standard Drinks/Week Comments Never 0 (1 standard drink = 0.6 oz pur e alcohol) Sex and Gender Information Value Date Recorded Sex Assigned at Not on file Legal Sex Male 9:34 AM PLASTIC CNC MACHINE OPERATOR Gender Identity Not on file Sexual Orientation Not on file documented as of this encounter Last Filed Vital Signs Vital Sign Reading Time Taken Comments Blood Pressure 134/81 08/11/2019 10:03 PM PLASTIC CNC MACHINE OPERATOR Pulse 68 08/11/2019 10:03 PM PLASTIC CNC MACHINE OPERATOR Temperature 36.6 ??C (97.8 ??F) 08/11/2019 3:54 PM CS T Respiratory Rate 18 08/11/2019 10:03 PM PLASTIC CNC MACHINE OPERATOR Oxygen Saturation 99% 08/11/2019 10:03 PM PLASTIC CNC MACHINE OPERATOR Inhaled Oxygen Concentration - - Weight 61.2 kg (135 lb) 08/11/2019 3:54 PM PLASTIC CNC MACHINE OPERATOR Height 182.9 cm (6') 08/11/2019 3:54 PM PLASTIC CNC MACHINE OPERATOR Body Mass Index 18.31 08/11/2019 3:54 PM PLASTIC CNC MACHINE OPERATOR documented in this encounter Discharge Instructions * Attachments The following attachments cannot be sent through Care Everywhere. * AIDS (Acquired Immunodeficiency Syndrome) (Albanian) * Viral Load and CD4 Count: General Info (Albanian) documented in this encounter Medications at Time of Discharge dolutegravir-lami vudine (Dovato) 50-300 mg Tablet Take by mouth daily. 08/15/2019 gabapentin (Neurontin) 100 mg capsule Take 1 Capsule (100 mg) by mouth 3 times daily. 90 Capsule 08/11/2019 08/15/2019 documented as of this encounter ED Notes * Larry De La Rosa RN - 08/11/2019 10:03 PM CST Discharge instructions reviewed w/ patient. Patient verbalizes understanding of teaching and need for follow up care. Patient denies any complaints at this time. TIC CNC MACHINE OPERATOR * Larry De La Rosa RN - 08/11/2019 4:33 PM CST Pt to the ED for complaints of right leg pain and limping since around . Pt states thathe doesn't really experience pain unless he is lying down in an uncomfortable position. Pt denies any trauma or possible injuries. Pt also complains of rash. Pt has had the rashes biopsied and was told he has psoriasis. Patient is aox4, respirations are spontaneous and non-labored. Pt is able to ambulate without assistance. TIC CNC MACHINE OPERATOR * Kristan Sin MD - 08/11/2019 3:46 PM CST HISTORY OF PRESENT ILLNESS Phil Chase, a 23 y.o. male presents to the ED with a Chief Complaint of Leg Pain Subjective Documented Triage Chief Complaint: Leg pain 5:44 PM: Phil Chase is a 23 y.o. male with a history of HIV, who presents to the Emergency Department with complaints of sharp right LE pain intermittently since May of last year. He stateshe also has weakness in his right LE and is unable to flex his foot or move his toes. He also has pain in his lower back and buttocks that radiates down to his legs. He denies any known injury or trauma. He denies having a fever, chills, decreased appetite, or cough. The patient presented 07/31/2019 to the ED with complaints of body aches, fever, oral thrush, and right leg pain as well as lower extremity pigmentation. He admitted he had been diagnosed with HIV July 2017 and had not been treated or sought out medical care. Multiple STD labs were sent and he tested positive for syphilis and was begun on IV ceftriaxone.and diflucan. 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 He left AMA after 4 days. Patient was uninsuredand referred to [facility] clinic and social services. He followed up on 08/06/2019 with the infectious disease office where he started he had a continued lower extremity weakness on the right and was unable to dorsiflex his right foot or moves his toes. It was recommended that the patient had further evaluation with MRI however because of lack of insurance this could not be scheduled so patient returned to the ER. He has a follow up appointment on 08/13/19 at [facility] clinic. Physician(s): No primary care provider on file. History provided by: The patient Arrived by: Private vehicle REVIEW OF SYSTEMS Review of Systems Constitutional: Negative for appetite change, chills and fever. HENT: Negative for congestion. Eyes: Negative for visual disturbance. Respiratory: Negative for cough. Cardiovascular: Negative for chest pain. Gastrointestinal: Negative for abdominal pain. Endocrine: Negative for polydipsia. Genitourinary: Negative for frequency. Musculoskeletal: Positive for back pain. Right LE pain Skin: Negative for rash. Allergic/Immunologic: Negative for immunocompromised state. Neurological: Positive for weakness (right foot). Negative for dizziness. Hematological: Does not bruise/bleed easily. Psychiatric/Behavioral: Negative for agitation and dysphoric mood. PAST MEDICAL HISTORY REVIEWED MEDICAL: Patient has [...] has never used smokeless tobacco. He reports previously being sexually active and has had partner(s) who are Male. He reports that he does not drink alcohol or use drugs. No history on file. Social History Other Topics Concern ??? Not on file PROBLEM LIST: Patient has HIV infection; Skin lesion of lower extremity; Oral thrush; Oropharyngeal dysphagia; Pain of right lower extremity; Cellulitis and abscess of leg; Skin lesions, generalized; History of syphilis; Syphilis; Myelopathy associated with HIV infection; and Right foot drop on their problem list. ALLERGIES Patient has no known allergies. HOME MEDICATIONS Discharge Medication List as of 08/11/2019 9:37 PM START taking these medications Details gabapentin (Neurontin) 100 mg capsule Take 1 Capsule (100 mg) by mouth 3 times daily., Disp-90 Capsule, R-0 CONTINUE these medications which have NOT CHANGED Details dolutegravir-lamivudine (Dovato) 50-300 mg Tablet Take by mouth daily. Objective PHYSICAL EXAM INITIAL VS BP: (!) 145/83 (08/11/19 1554), Heart Rate: 76 bpm (08/11/19 1554), Resp: 18 (08/11/19 155), Pulse: 76 (08/11/19 1554), Temp: 97.8 ??F (36.6 ??C) (08/11/19 155), Temp src: Oral (08/11/19 155), SpO2: 100 % (08/11/191553), Height: 6' (182.9 cm) (08/11/19 1554), Weight: 61.2 kg (135 lb) (08/11/19 1554), BMI (Calculated): 18.31 (08/11/191553) No LMP for male patient. Physical Exam Vitals signs and nursing note reviewed. HENT: Head: Normocephalic. Eyes: Pupils: Pupils are equal, round, and reactive to light. Neck: Musculoskeletal: Normal range of motion. Cardiovascular: Rate and Rhythm: Normal rate and regular rhythm. Pulmonary: Effort: Pulmonary effort is normal. Breath sounds: Normal breath sounds. Abdominal: Palpations: Abdomen is soft. Tenderness: There is no abdominal tenderness. Hernia: A hernia (large inguinal hernia that extends into the scrotum) is present. Musculoskeletal: Normal range of motion. Skin: General: Skin is warm and dry. Comments: dark patchy skin lesions on lower extremities Neurological: Mental Status: He is alert and oriented to person, place, and time. Comments: On right foot there is loss of dorsiflexion of foot and toes. There is no sensory deficit DIAGNOSTICS LAB: No data to display RADIOLOGY: MRI LUMBAR W WO CONTRAST Preliminary Result IMPRESSION: Bright signal intensity within distal thoracic spinal cord could be due to HTLV myelopathy, no evidence of spinal cord compression. No disc herniation seen. Incidental small renal cyst noted on the left. I spoke with Dr. Sin at 2115 hours regarding these findings. Dictation location [address] [place] [address] CT HEAD CERVICAL SPINE WO CONTRAST Radiologist Impression IMPRESSION: Normal head CT. EXAMINATION: CT CERVICAL SPINE WITHOUT CONTRAST WITH RECONSTRUCTIONS DATE: 08/11/2019 6:19 PM HISTORY: Weakness, HIV-positive. COMPARISON: None TECHNIQUE: Axial 1.25 mm images of the cervical spine were obtained from the skull base through the thoracic inlet without IV contrast. Coronal and sagittal reconstructed images were obtained. FINDINGS: Examination of the cervical spine fails to demonstrate evidence of fracture, dislocation, or subluxation. The vertebral bodies are normally aligned. The bony spinal canal is widely patent. The posterior elements are radiographically normal. INCIDENTAL FINDINGS: None. IMPRESSION: Radiographically normal cervical spine. DICTATION LOCATION: Location [address] [place] [address] The examination was performed with the adjustment of mA according to the patient size and/or the use of Iterative Reconstruction Technique. XR LUMBAR SPINE 2 OR 3 VW Radiologist Impression IMPRESSION: 1. Normal lumbar spine. DICTATION LOCATION: Location [address] [place] [address] XR THORACIC SPINE 3 VW Radiologist Impression IMPRESSION: 1. Normal thoracic spine. DICTATION LOCATION: [address] MRI LUMBAR W WO CONTRAST CT HEAD CERVICAL SPINE WO CONTRAST XR LUMBAR SPINE 2 OR 3 VW XR THORACIC SPINE 3 VW PROCEDURES Procedures MEDICAL DECISION MAKING AND PLAN OF CARE ---On initial evaluation, I discussed plan to obtain imaging. Will treat with bicillin as recommended by infectious disease as well as check his HIV, RNA, and PCR. 9:31 PM: Updated pt on their results. Patient will be discharged home. Recommended follow up with PCP. RTER with worsening sx. Pt understands and agrees with the plan. All questions and concerns addressed. The patient is stable for discharge. ED provider and ED nurse verbally discussed patient plan of care at this time. MDM I have reviewed previous: notes I have reviewed current: imaging I have reviewed nursing notes related to past medical history, social history, and review of systems and agree, unless otherwise noted. Medications Administered During the ED Stay from 08/11/2019 1546 to 08/11/2019 2331 Date/Time Order Dose Route Action 08/11/20191934 penicillin G benzathine (BICILLIN L-A) 2,400,000 unit/4 mL injection 2,400,000 Units 2,400,000 Units IM Given 08/11/20192053 gadoteridol (PROHANCE) 279.3 mg/mL injection 12 mL 12 mL IV Contrast Given 08/11/20192053 sodium chloride flush injection 10 mL 10 mL IV Given Discharge Medication List as of 08/11/2019 9:37 PM START taking these medications Details gabapentin (Neurontin) 100 mg capsule Take 1 Capsule (100 mg) by mouth 3 times daily., Disp-90 Capsule, R-0 CONTINUE these medications which have NOT CHANGED Details dolutegravir-lamivudine (Dovato) 50-300 mg Tablet Take by mouth daily. LAST VS BP: 134/81 (08/11/192202), Heart Rate: 68 bpm (08/11/192202), Resp: 18 (08/11/192202), Pulse: 68(08/11/192202), Temp: 97.8 ??F (36.6 ??C) (08/11/191553), Temp src: Oral (08/11/191553), SpO2: 99 % (08/11/192202) CLINICAL IMPRESSION Final diagnoses: [B20, G95.9] Myelopathy associated with HIV infection (Primary) [M21.371] Right foot drop DISPOSITION, EDUCATION AND MEDICATION RECONCILIATION Medications reconciled. See after visit summary for patient education on discharged patients. ED Disposition ED Disposition Condition User Date/Time Comment Discharge Stable Kristan Sin MD Mon Aug 11, 2019 9:25 PM ATTESTATION STATEMENTS This note has been prepared by Liz Chen acting as a scribe for Dr. Sin on 08/11/2019 at 9:31PM. The scribe's documentation has been prepared under my direction and personally reviewed by me, KRISTAN SIN MD , in its entirety on 08/11/19 at 11:31 PM. I confirm that the note above accurately reflects all work, treatment, procedures, and medical decision making performed by me. TIC CNC MACHINE OPERATOR documented in this encounter Miscellaneous Notes * Treatment Plan - Lonnie Coreas, RT - 08/11/2019 8:55 PM CST ?STL IMS CT MRI Medication and Flush Protocol [facility] Approved by: [facility] - Medical Executive Committee Approval Date: 02/06/2019 I ORDERS ARE ENTERED ???PER PROTOCOL?? Enter the protocol in the patient's electronic health record using smartphrase: .imagingmedflushprotocol Communication Orders: o For ordered imaging procedures requiring intravenous access: ??? Initiate a peripheral IV, if not already in place, and discontinue IV prior to discharge (if outpatient). ??? Enter order if needed: Insert Peripheral IV Medication Orders: o Local Anesthetic for use to initiate IV ADULT ??? Lidocaine 4% (L.M.X.4) applied topically ONE TIME prior to IV catheter insertion PRN (L.M.X.4 %should be applied 15 minutes prior to procedure) PEDIATRIC ??? Lidocaine 4% (L.M.X.4) applied topically ONE TIME prior to IV catheter insertion PRN (apply 15 minutes prior to procedure) ??? Sucrose 24% (Tootsweet; Sweet-Ease) oral solution 0.2 mL oral (apply to tongue on pacifier or clean, gloved finger), ONE TIME 2 minutes prior to painful procedure. May repeat dose x1 PRN to complete procedure. o Sodium chloride 0.9% (normal saline) flush 10 mLs PRN for saline lock or medication administration. o For respiratory distress, initiate oxygen and/or increase O2 to maintain saturation greater than 90% o For all invasive procedures: obtain Lidocaine 1% for intra-procedure administration. If Lidocaine1% unavailable, may substitute Lidocaine 2%. PROCEDURE SPECIFIC MEDICATIONS ??? Cystogram (CT Pelvis): Iopamidol (Isovue 300) 61%, 50mL, diluted with 250mL of sterile NS. Inject Isovue into 250mL bag ofNS. Clamp houston catheter prior to instilling solution via catheter. o Instill up to 300mL of Isovue and NS solution into bladder via catheter, one time. CT ORAL CONTRAST PROTOCOLS FOR ADULTS ??? Use Iohexol (Omnipaque) 240 mg/mL for CT scan unless patient has a documented allergy to contrast dye. ??? If allergy present, use Barium Sulfate (EZ Paque) for procedure. ??? If at any time the Professional Employer Consultant has a question about which option to administer, seek clarification from a Radiologist. o Iohexol (Omnipaque) 240 mg/mL: 50ml added to 960mL of clear liquid of patient's choice. Preferredroute is oral. May use nasoenteric tube if needed. ??? Administer 900mL of the diluted Omnipaque 240, orally, one time only. o Barium Sulfate (EZ Paque /Vanilla Silq) 96% oral suspension: Preferred route is oral. May use nasoenteric tube if needed. ??? Administer 900mL of barium sulfate, orally, one time only. CT ORAL CONTRAST PROTOCOLS FOR PEDIATRICS Pediatrics = up to age 18 o Pediatric Radiologist will approve of one of the following products selected for procedure. ??? Barium Sulfate (EZ Paque) 96% oral suspension: preferred route is oral. May use nasoenteric tube if needed. to 3 months Administer up to 90mL of Barium Sulfate, orally, one time only 4 months to [...] of Barium sulfate, Orally, One Time Only ??? Iohexol (Omnipaque) 240 mg/mL oral solution ; Dilute 25mL of iohexol with 480mL of clear liquid of patient's choice. Administer the diluted solution per age as follows: Preferred route is orally. May use nasoenteric tube if needed. ; Send any remaining diluted Iohexol solution with the pateint's nurse to CT Administer 45mL of diluted Iohexol oral solution, [...] 2 doses. Over 10 years old Administer 300mL of Iohexol orally every 30 min x [address] RECTAL CONTRAST PROTOCOLS ADULTS: o Iohexol (Omnipaque) 240 mg/mL: Dilute 50mL of Omnipaque with 900mL of warm water in an enema bag.Administer the diluted solution rectally via gravity per patient's tolerance, up to 950mLs, one time only. CT IV CONTRAST PROTOCOLS for ADULT ADULTS: (If patient is less than 55kg and confirm dose with radiologist) o Iopadmidol (Isovue-300): Administer 2.2mL/kg of Iopamidol 61%, intravenously, one time only. o See table below for maximum dose, unless otherwise authorized by radiologist.If exam has been completed before the entire dose has been administered, stop the injection. o If exam not included in table below, contact radiologist for orders. Procedure Maximum Dose CT Head with Contrast Up to [address] Chest with Contrast Up to [address] Maxilofacial with Contrast Up to [address] Soft Tissue Neck with Contrast CT Chest Abdomen Pelvis with Contrast CT Chest Abdomen with Contrast CT Abdomen Pelvis with Contrast CT Pelvis with Contrast CT Angiogram Examinations (all) CT Soft Tissue Neck and Chest Abomen Pelvis with Contrast Up to 150 mL [...] Iopamidol (Isovue-300) 61%, intravenously, one time only MRI IV CONTRAST PROTOCOLS ADULTS: o Multihance and Prohance can be used for most MRI scans o For Liver studies, contact Radiologist to determine use of one of the following: o Gadobenate Dimeglumine (Multihance) (0.1mmol/0.2mL), Administer 0.1mmol/kg = 0.2mL/kg up to MAX of 30mL, intravenously, one time only o Gadoteridol (Prohance) (0.1mmol/0.2mL), Administer 0.1mmol/kg = 0.2mL/kg up to MAX of 30mL, intravenously, one time only o Gadoxetate (Eovist) 2.5 mmol/10mL, Administer 0.025mmol/kg = 0.1mL/kg MAX of 15mL, intravenously,one time only PEDIATRICS: o Radiologist to determine need and type of contrast Term neonates up to 2 years: Gadobutrol (Gadavist) 1mmol/mL injection, Administer 0.1mmol/kg = 0.1mL/kg up to MAX of 14mmol = 14mL, intravenously, one time only 2 years and older Gadobenate Dimeglumine (Multihance) (0.1mmol/0.2mL), Administer 0.1mmol/kg = 0.2mL/kg up to MAX of 20mL intravenously, one time only OR Gadoteridol (Prohance) (0.1mmol/0.2mL), Administer 0.1mmol/kg = 0.2mL/kg up to MAX of 20mL, intravenously, one time only TIC CNC MACHINE OPERATOR documented in this encounter Plan of Treatment Not on file documented as of this encounter Procedures Procedure Name Priority Date/Time Associated Diagnosis Comments MRI LUMBAR W WO CONTRAST Stat 08/11/2019 9:04 PM PLASTIC CNC MACHINE OPERATOR HIV 1 RNA, QUANTITATIVE Stat 08/11/2019 7:07 PM PLASTIC CNC MACHINE OPERATOR CT HEAD CERVICAL SPINE WO CONTRAST Stat 08/11/2019 6:19 PM PLASTIC CNC MACHINE OPERATOR XR LUMBAR SPINE 2 OR 3 VW Stat 08/11/2019 6:10 PM PLASTIC CNC MACHINE OPERATOR XR THORACIC SPINE 3 VW Stat 08/11/2019 6:10 PM PLASTIC CNC MACHINE OPERATOR documented in this encounter Results * MRI LUMBAR W WO CONTRAST (08/11/2019 9:04 PM PLASTIC CNC MACHINE OPERATOR) Anatomical Region Laterality Modality Spine Magnetic Resonan ce 08/11/2019 9:04 PM PLASTIC CNC MACHINE OPERATOR Impressions 08/11/2019 10:33 PM PLASTIC CNC MACHINE OPERATOR IMPRESSION: Bright signal intensity within distal thoracic spinal cord could be due to HTLV myelopathy, no evidence of spinal cord compression. No disc herniation seen. Incidental small renal cyst noted on the left. I spoke with Dr. Sin at 2115 hours regarding these findings. Dictation location 1 [facility] Narrative 08/11/2019 10:33 PM PLASTIC CNC MACHINE OPERATOR MR IMAGING OF LUMBAR SPINE WITH AND WITHOUT CONTRAST 08/11/2019 HISTORY: Back pain, rapidly progressing neuro deficit. HIV untreated. Right lower extremity pain since May. FINDINGS: There is bright signal intensity suggested within the spinal cord centrally at L1 level and above. No abnormal enhancement is seen within spinal cord. No disc herniation or stenosis is seen. No abnormal enhancement of nerve roots is evident post contrast administration. Marrow signal intensity is normal. Procedure Note Manan Walton MD - 08/11/2019 MR IMAGING OF LUMBAR SPINE WITH AND WITHOUT CONTRAST 08/11/2019 HISTORY: Back pain, rapidly progressing neuro deficit. HIV untreated. Right lower extremity pain since May. FINDINGS: There is bright signal intensity suggested within the spinal cord centrally at L1 level and above. No abnormal enhancement is seen within spinal cord. No disc herniation or stenosis is seen. No abnormal enhancement of nerve roots is evident post contrast administration. Marrow signal intensity is normal. IMPRESSION: Bright signal intensity within distal thoracic spinal cord could be due to HTLV myelopathy, no evidence of spinal cord compression. No disc herniation seen. Incidental small renal cyst noted on the left. I spoke with Dr. Sin at 2115 hours regarding these findings. Dictation location 1 [facility] Result [facility] Kristan Sin MD MR ORDERABLES Final Result * (ABNORMAL) HIV 1 RNA, QUANTITATIVE (08/11/2019 7:07 PM PLASTIC CNC MACHINE OPERATOR) HIV-1 RNA PCR Detected( A) Not detected 08/13/2019 3:05 PM PLASTIC CNC MACHINE OPERATOR [facility] HIV-1 RNA PCR, QUANT 17,307 copies/mL 08/13/2019 3:05 PM PLASTIC CNC MACHINE OPERATOR [facility] HIV-1 RNA LOG 4.24 log copies/mL 08/13/2019 3:05 PM PLASTIC CNC MACHINE OPERATOR [facility] Blood Venipuncture / Unknown 08/11/2019 7:07 PM PLASTIC CNC MACHINE OPERATOR 08/11/2019 7:13 PM PLASTIC CNC MACHINE OPERATOR Narrative [facility] - 08/13/2019 3:05 PM PLASTIC CNC MACHINE OPERATOR The quantification range of this assay is 30 to 10,000,000 IU/mL (1.47 log to 7.00 log IU/mL). ??A result of <30 IU/mL (<1.47 log IU/mL) indicates that HIV-1 RNA is detected, but the HIV-1 RNA level present cannot be quantified accurately below this lower limit of quantification of this assay. ??Testing was performed using the Aptima HIV-1 RNA Assay (Biodel) with the Computer[employer] System. us Kristan Sin MD CHEMISTRY ORDERABLES Final Resul t [facility]# [id number] [address] [place] [address] * CT HEAD CERVICAL SPINE WO CONTRAST (08/11/2019 6:19 PM PLASTIC CNC MACHINE OPERATOR) Anatomical Region Laterality Modality Head Computed Tomogra phy 08/11/2019 6:19 PM PLASTIC CNC MACHINE OPERATOR Impressions 08/11/2019 6:29 PM PLASTIC CNC MACHINE OPERATOR IMPRESSION: Normal head CT. EXAMINATION: CT CERVICAL SPINE WITHOUT CONTRAST WITH RECONSTRUCTIONS DATE: 08/11/2019 6:19 PM HISTORY: Weakness, HIV-positive. COMPARISON: None TECHNIQUE: Axial 1.25 mm images of the cervical spine were obtained from the skull base through the thoracic inlet without IV contrast. Coronal and sagittal reconstructed images were obtained. FINDINGS: Examination of the cervical spine fails to demonstrate evidence of fracture, dislocation, or subluxation. The vertebral bodies are normally aligned. The bony spinal canal is widely patent. The posterior elements are radiographically normal. INCIDENTAL FINDINGS: ??None. IMPRESSION: Radiographically normal cervical spine. DICTATION LOCATION: Location 1 - [facility] The examination was performed with the adjustment of mA according to the patient size and/or the use of Iterative Reconstruction Technique. Narrative 08/11/2019 6:29 PM PLASTIC CNC MACHINE OPERATOR EXAMINATION: CT HEAD WITHOUT CONTRAST DATE: ??08/11/2019 6:19 PM HISTORY: Weakness, HIV positive COMPARISON: None TECHNIQUE: Axial 5 mm images of the head were obtained from the skull base through the vertex. FINDINGS: The midline structures are central. The lateral and third ventricles are normal in size. De La Vega-white matter differentiation is preserved. No space-occupying mass, intraparenchymal hemorrhage, acute ischemia, or extra-axial fluid is present. The cerebellum and brainstem structures are normal. No distinct bony abnormality is seen. INCIDENTAL FINDINGS: ??None. Procedure Note Patrick Pappas MD - 08/11/2019 EXAMINATION: CT HEAD WITHOUT CONTRAST DATE: 08/11/2019 6:19 PM HISTORY: Weakness, HIV positive COMPARISON: None TECHNIQUE: Axial 5 mm images of the head were obtained from the skull base through the vertex. FINDINGS: The midline structures are central. The lateral and third ventricles are normal in size. De La Vega-white matter differentiation is preserved. No space-occupying mass, intraparenchymal hemorrhage, acute ischemia, or extra-axial fluid is present. The cerebellum and brainstem structures are normal. No distinct bony abnormality is seen. INCIDENTAL FINDINGS: None. IMPRESSION: Normal head CT. EXAMINATION: CT CERVICAL SPINE WITHOUT CONTRAST WITH RECONSTRUCTIONS DATE: 08/11/2019 6:19 PM HISTORY: Weakness, HIV-positive. COMPARISON: None TECHNIQUE: Axial 1.25 mm images of the cervical spine were obtained from the skull base through the thoracic inlet without IV contrast. Coronal and sagittal reconstructed images were obtained. FINDINGS: Examination of the cervical spine fails to demonstrate evidence of fracture, dislocation, or subluxation. The vertebral bodies are normally aligned. The bony spinal canal is widely patent. The posterior elements are radiographically normal. INCIDENTAL FINDINGS: None. IMPRESSION: Radiographically normal cervical spine. DICTATION LOCATION: Location [address] [place] [address] The examination was performed with the adjustment of mA according to the patient size and/or the use of Iterative Reconstruction Technique. us Kristan Sin MD CT ORDERABLES Final Result * XR LUMBAR SPINE 2 OR 3 VW (08/11/2019 6:10 PM PLASTIC CNC MACHINE OPERATOR) Anatomical Region Laterality Modality Spine Computed Radiogr aphy 08/11/2019 6:10 PM PLASTIC CNC MACHINE OPERATOR Impressions 08/11/2019 6:13 PM PLASTIC CNC MACHINE OPERATOR IMPRESSION: 1. Normal lumbar spine. DICTATION LOCATION: [address] Narrative 08/11/2019 6:13 PM PLASTIC CNC MACHINE OPERATOR XR LUMBAR SPINE 2 OR 3 VW DATE: 08/11/2019 6:10 PM HISTORY: Low Back Pain,Comment: weakness. ?? See Reason for Exam Findings: Lumbar alignment is normal. There is no fracture, subluxation, or loss of vertebral body height. The disc spaces are preserved. Bone mineralization is normal. Procedure Note Gregory Rojas MD - 08/11/2019 XR LUMBAR SPINE 2 OR 3 VW DATE: 08/11/2019 6:10 PM HISTORY: Low Back Pain,Comment: weakness. See Reason for Exam Findings: Lumbar alignment is normal. There is no fracture, subluxation, or loss of vertebral body height. The disc spaces are preserved. Bone mineralization is normal. IMPRESSION: 1. Normal lumbar spine. DICTATION LOCATION: Location [address] [place] [address] us Kristan Sin MD DIAGNOSTIC IMAGING ORDERABLES Fi nal Result * XR THORACIC SPINE 3 VW (08/11/2019 6:10 PM PLASTIC CNC MACHINE OPERATOR) Anatomical Region Laterality Modality Spine Computed Radiogr aphy 08/11/2019 6:10 PM PLASTIC CNC MACHINE OPERATOR Impressions 08/11/2019 6:13 PM PLASTIC CNC MACHINE OPERATOR IMPRESSION: 1. Normal thoracic spine. DICTATION LOCATION: [address] Narrative 08/11/2019 6:13 PM PLASTIC CNC MACHINE OPERATOR XR THORACIC SPINE 3 VW DATE: 08/11/2019 6:10 PM HISTORY: Pain. ?? See Reason for Exam Findings: Thoracic alignment is normal. There is no fracture, subluxation, or loss of vertebral body height. The disc spaces are preserved. Bone mineralization is normal. Procedure Note Gregory Rojas MD - 08/11/2019 XR THORACIC SPINE 3 VW DATE: 08/11/2019 6:10 PM HISTORY: Pain. See Reason for Exam Findings: Thoracic alignment is normal. There is no fracture, subluxation, or loss of vertebral body height. The disc spaces are preserved. Bone mineralization is normal. IMPRESSION: 1. Normal thoracic spine. 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 disease of spinal cord Right foot drop Other acquired deformity of ankle and foot Right foot drop Other acquired deformity of ankle and foot documented in this encounter Administered Medications Inactive Administered Medications - up to 3 most recent administrations Medication Order MAR Action Action Date Dose Rate Site gadoteridol (PROHANCE) 279.3 mg/mL injection 12 mL 12 mL, IV, INTRA-PROCEDURE ONCE, 1 dose, Starting on Sun08/11/19 at 2053, Until Sun08/11/19 at 2053, Routine Contrast Given 08/11/2019 8:54 PM PLASTIC CNC MACHINE OPERATOR 12 mL penicillin G benzathine (BICILLIN L-A) 2,400,000 unit/4 mL injection 2,400,000 Units 2,400,000 Units, IM, ONE TIME ONLY, 1 dose, On Sun08/11/19 at 1900, Routine, Antibiotic Indication: Other: Enter in Comments, Antibiotic Indication: syphilis, Is sepsis suspected? No Given 08/11/2019 7:35 PM PLASTIC CNC MACHINE OPERATOR 2,400,000 Units Vastus Lateralis, Right sodium chloride flush injection 10 mL 10 mL, IV, INTRA-PROCEDURE ONCE, 1 dose, Starting on Sun08/11/19 at 2053, Until Sun08/11/19 at 2053, Routine Given 08/11/2019 8:54 PM PLASTIC CNC MACHINE OPERATOR 10 mL documented in this encounter Active and Recently Administered Medications Times are shown in PLASTIC CNC MACHINE OPERATOR. Scheduled Medication Order 08/09/2019 08/10/2019 08/11/2019 gadoteridol (PROHANCE) 279.3 mg/mL injection 12 mL (COMPLETED) 12 mL, IV, INTRA-PROCEDURE ONCE, 1 dose, Starting on Sun08/11/19 at 2053, Until Sun08/11/19 at 2053, Routine 2053 (Contrast Given - Provider: RT Ryan) penicillin G benzathine (BICILLIN L-A) 2,400,000 unit/4 mL injection 2,400,000 Units (COMPLETED) 2,400,000 Units, IM, ONE TIME ONLY, 1 dose, On Sun08/11/19 at 1900, Routine, Antibiotic Indication: Other: Enter in Comments, Antibiotic Indication: syphilis, Is sepsis suspected? No 1934 (Given - Provid er: Larry De La Rosa RN) sodium chloride flush injection 10 mL (COMPLETED) 10 mL, IV, INTRA-PROCEDURE ONCE, 1 dose, Starting on Sun08/11/19 at 2053, Until Sun08/11/19 at 2053, Routine 2053 (Given - Provid er: RT Ryan) documented in this encounter
--- OUTSIDE RECORDS SUMMARY | 2024-08-10 03:49 | XMS_ITS | Encounter Summary ---
Author Organization [facility] Address [address] [place] [address] Care Team Providers Care Automated Manufacturing Instructor Name Role Phone Unavailable Primary Care Provider Unavailabl e Reason for Visit * Reason Comments Follow Up HIV Encounter Details Date Type Department Care Team (Late st Contact Info) Description 08/06/2019 9:00 AM COMPANY PILOT Office Visit [facility] INFECTIOUS DISEASE [address] [facility] [id number] [place] [address] Leonel Edwards MD NO ADDRESS ON FILE HIV infection, unspecified symptom status (Primary Dx); Syphilis; Skin lesion of lower extremity; AIDS; Focal neurological deficit Social History Tobacco Use Types Packs/Day Years Used Date Smoking Tobacco: Never Smokeless Tobacco: Never Alcohol Use Standard Drinks/Week Comments Never 0 (1 standard drink = 0.6 oz pur e alcohol) Sex and Gender Information Value Date Recorded Sex Assigned at Not on file Legal Sex Male 9:34 AM COMPANY PILOT Gender Identity Not on file Sexual Orientation Not on file documented as of this encounter Last Filed Vital Signs Vital Sign Reading Time Taken Comments Blood Pressure 141/100 08/06/2019 9:35 AM COMPANY PILOT Pulse 80 08/06/2019 9:35 AM COMPANY PILOT Temperature 37.6 ??C (99.6 ??F) 08/06/2019 9:35 AM CS T Respiratory Rate - - Oxygen Saturation 90% 08/06/2019 9:35 AM COMPANY PILOT Inhaled Oxygen Concentration - - Weight 61.2 kg (135 lb) 08/06/2019 9:35 AM COMPANY PILOT Height 182.9 cm (6') 08/06/2019 9:35 AM COMPANY PILOT Body Mass Index 18.31 08/06/2019 9:35 AM COMPANY PILOT documented in this encounter Progress Notes * Leonel Edwards MD - 08/06/2019 9:55 AM CST Infectious Diseases Progress Note Date of service: 08/06/2019,9:55 AM Subjective: This is a follow-up visit for HIV treatment follow up. This is Dr. Ac's patient to sign [facility] and is coming today to clinic to resume care. The patient has advanced HIV/AIDS withCD4 count of 6. He presented to the emergency department on 07/31 complaining of left leg pain and ulcer. He was found to have extensive oral thrush and diffuse hyperpigmented skin rash. RPR was as well positive with a titer of 1: 128. Patient stayed in the hospital between 07/31 through 08/02 and left [facility] as his grandfather . A biopsy was obtained from the left leg woundand was suggestive psoriasis dermatitis. Patient came in to the office in a wheelchair, he reports lower extremity weakness that started around a month ago. Currently denies fever or chills, reports of thrush has resolved, feeling better. Patient reports that he is not sexually active at this point. PMH, PSH, SH, and FH reviewed and unchanged from last visit. Patient Active Problem List Diagnosis Date Noted ??? Syphilis ??? HIV infection 07/31/2019 ??? Skin lesion of lower extremity 07/31/2019 ??? Oral thrush 07/31/2019 ??? Oropharyngeal dysphagia 07/31/2019 ??? Pain of right lower extremity 07/31/2019 ??? Cellulitis and abscess of leg ??? Skin lesions, generalized ??? History of syphilis Past Medical History: Diagnosis Date ??? History of HIV infection Past Surgical History: Procedure Laterality Date ??? PT DENIES RELEVANT SURGICAL HISTORY No current outpatient medications on file. No current facility-administered medications for this visit. No Known Allergies Social History Tobacco Use ??? Smoking status: Never Smoker ??? Smokeless tobacco: Never Used Substance Use Topics ??? Alcohol use: Never Frequency: Never Family History Problem Relation Name Age of Onset ??? Healthy Father ??? Healthy Mother ??? Healthy Sister ??? Healthy Brother ??? Diabetes Maternal Grandmother ??? Diabetes Maternal Grandfather There is no immunization history on file for this patient. Outpatient Encounter Medications as of 08/06/2019 Medication Sig Dispense Refill ??? [DISCONTINUED] ibuprofen (MOTRIN) 200 mg tablet Take 200 mg by mouth every 6 hours as needed for Pain, Mild. No facility-administered encounter medications on file as of 08/06/2019. Review of Systems Complete 14 systems were reviewed. Positive findings were mentioned in the subjective part of this note (HPI). All other systems were negative except those mentioned in the review below. Constitutional: Weight loss, denies fever or chills. Eye: Denies visual changes. Ear, Nose, Mouth, Throat: No new hearing loss. No drainage or sore throat. Respiratory: Denies cough or SOB. Cardiovascular: Denies chest pain or palpitations. Gastrointestinal: Denies abdominal pain, nausea, vomiting or diarrhea. Genitourinary: Denies dysuria, change in frequency or hematuria. Integementary, Breast: Denies skin rash. Hematologic, Oncologic, Lymphatic: Denies bleeding. Musculoskeletal:Denies joint pain or effusion. Neurological: Lower extremity weakness. Behavior, Psychologic: Denies any significant new mood changes. Objective: BP (!) 141/100 (BP Location: Right arm, Patient Position (BP): Sitting, BP Cuff Size: Adult) Pulse 80 Temp 99.6 ??F (37.6 ??C) (Oral) Ht 6' (1.829 m) Wt 61.2 kg (135 lb) SpO2 90% BMI 18.31 kg/m?? BP: (!) 141/100 (08/06/19 0935) General Appearance: Awake, alert. No distress. HEENT: Head: Atraumatic. Eyes: Pallor. Right eye exhibits no discharge. Left eye exhibits no discharge. Nose: No drainage or sinus tenderness. Mouth: Lips, mucosa, and tongue normal. Teeth and gum look normal. Neck supple. Heart: Regular rhythm and normal heart sounds. Pulmonary/Chest: Normal breath sounds. No wheezes. Abdomen: Soft. Bowel sounds are normal. Back: No CVA or focal spinal tenderness. Musculoskeletal: No joint effusion or tenderness noticed. Neurological: Awake, alert and oriented. Lower extremity weakness. Skin: Diffuse hyperpigmented skin rash, psoriatic changes of the nails, psoriatic changes on the left chin. Psychiatric: Depressed mood. Labs and imaging reviewed. CD4 ABSOLUTE Date Value Ref Range Status 07/31/2019 6 (L) 365 - 1437 cells/mcL Final No results found for: [id number] No results found for: CREATCLEAR Assessment &Plan: Phil was seen today for follow up. Diagnoses and all orders for this visit: AIDS/advanced HIV infection with AIDS defining conditions including wasting and extensive thrush. CD4 count of 6. Viral load is pending. Will start patient on HAART, he does not have insurance yet, Igave him samples of Dovato enough for next 28 days. He is expecting to be covered through [facility] clinic next week. Unfortunately, to lack of insurance, prophylactic Bactrim and azithromycin cannot be started. Latent syphilis: Ordered IM benzathine penicillin injections. Hopefully will have coverage soon to get treated Skin lesion of lower extremity: Biopsy suggestive of psoriatic dermatitis Lower extremity weakness. Will order MRI brain and spine. Extensive oral thrush, resolved after treatment Diffuse hyperpigmented skin rash. Could be related to Kaposi. Will follow closely on HAART Immunization. Patient received first dose of hepatitis B and Prevnar 13 this visit. ?? Patient to follow-up with Dr. Ac in 3 to 4 weeks Leonel Edwards MD, MS, [facility]. [facility] Infectious Diseases Office Pager: [phone] Exchange: [phone] This note was done using [employer] dictation software. The above note may or may not have been proofread for accuracy. ANY PILOT documented in this encounter Plan of Treatment Not on file documented as of this encounter Visit Diagnoses Diagnosis HIV infection, unspecified symptom status- Primary Syphilis Syphilis, unspecified Skin lesion of lower extremity AIDS Human immunodeficiency virus [HIV] disease Focal neurological deficit Other symptoms involving nervous and musculoskeletal systems documented in this encounter
--- OUTSIDE RECORDS SUMMARY | 2024-08-10 03:49 | XMS_ITS | Encounter Summary ---
Author Organization [facility] Address [address] [place] [address] Care Team Providers Care Boom Truck Driver Name Role Phone Unavailable Primary Care Provider Unavailabl e Reason for Referral * Eval and Treat (Routine) - Closed Specialty Diagnoses / Procedures Referred By Ara cazares Referred To Contact Dermatology Diagnoses Plaque psoriasis Rose Mary Wallace MD Phone: tel: fax: Referral ID Status Reason Start Date Expiration Date Visits Requested Visits Authorized [id number] Closed Performing Department To Schedule (STL) 09/02/2019 09/02/2020 1 1 EN GRINDER Reason for Visit * Reason Comments Follow Up Encounter Details Date Type Department Care Team (Late st Contact Info) Description 09/02/2019 1:40 PM PLATEN GRINDER Office Visit [facility] [address] [place] [address] Rose Mary Wallace MD [address] [place] [address] Plaque psoriasis (Primary Dx); Current moderate episode of major depressive disorder without prior episode Social History Tobacco Use Types Packs/Day Years [...] Sign Reading Time Taken Comments Blood Pressure 112/68 09/02/2019 3:00 PM PLATEN GRINDER Pulse 80 09/02/2019 3:00 PM PLATEN GRINDER Temperature 36.8 ??C (98.2 ??F) 09/02/2019 3:00 PM CS T Respiratory Rate - - Oxygen Saturation - - Inhaled Oxygen Concentration - - Weight 68.7 kg (151 lb 6 oz) 09/02/2019 3:00 PM PLATEN GRINDER Height 182.9 cm (6') 09/02/2019 3:00 PM PLATEN GRINDER Body Mass Index 20.53 09/02/2019 3:00 PM PLATEN GRINDER documented in this encounter Progress Notes * Rose Mary Wallace MD - 09/02/2019 4:21 PM CST . [facility] follow up clinic note CC: Feeling down HPI: Phil Chase is a 23 y.o. 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 Patient was seen by colorectal surgery earlier today for rectal itching. He was given a prescription for specially compounded nifedipine ointment, Xylocaine ointment, and Anusol HC suppositories. Anoscopy was performed. He will be scheduled for future laser removal of anal condylomas. Patient reports depressed mood, generally feeling down. Patient has only disclosed his HIV status to a few of his family members. His family is somewhat supportive, but he reports they have told him it is time for him to stand on his own 2 feet and take care of his own problems. [place] He continues to struggle with mobility given his lower extremity weakness and is using a walker around the apartment and a wheelchair for further distances. His sleep is fair, his appetite is good. He continues to gain weight since starting on ART. His thrush has resolved. Due to slow mobility he has had at least one episode of incontinence when it was difficult for him to get to the bathroom in time. His mood is poor, and he occasionally feels overwhelmed and tearful. However he is forward thinkingabout the future. He verbalizes intent to get on top of all of this . He initially struggled with compliance with follow-up visits, but is shown more initiative this week. Patient denies any thoughts of suicide or homicide. Denies having any plan. States that in the mental health crisis, he he could call his mom or his cousin for support. Much of his depression is situational. He is currently unable to work and is struggling financially. He has applied for Medicaid, and has a transitional housing facility lined up if his Medicaid is approved. He continues to struggle for transportation to and from medical appointments. Patient Active Problem List Diagnosis Code ??? HIV infection B20 ??? Skin lesion of lower extremity L98.9 ??? Oral thrush B37.0 ??? Oropharyngeal dysphagia R13.12 ??? Pain of right lower extremity M79.604 ??? Cellulitis and abscess of leg L03.119, L02.419 ??? Skin lesions, generalized L98.9 ??? History of syphilis Z86.19 ??? Syphilis A53.9 ??? 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 Right foot drop M21.371 Current Outpatient Medications on File Prior to Visit Medication Sig Dispense Refill ??? lidocaine (XYLOCAINE) 5 % Ointment Apply to affected area every 3 hours as needed for Pain. Apply to perianal area 35.44 Gram 1 ??? hydrocortisone acetate (ANUSOL-HC) 25 mg Suppository Insert 1 Suppository (25 mg) by rectum daily at bedtime. 30 Suppository 1 ??? nifedipine (PROCARDIA) Powder Nifedipine 0.2% ointment compound to be applied to perianal area 4-6 times a day 30 Gram 1 ??? gabapentin (NEURONTIN) 300 mg capsule Take 1 Capsule (300 mg) by mouth 3 times daily. 90 Capsule 1 ??? sulfamethoxazole-trimethoprim (BACTRIM DS) 800-160 mg tablet Take 1 Tablet by mouth daily. 30 Tablet 1 ??? dolutegravir-lamivudine (Dovato) 50-300 mg Tablet Take 1 Tablet by mouth daily. 30 Tablet 3 ??? dolutegravir-lamivudine (Dovato) 50-300 mg Tablet Take 1 Tablet by mouth daily. 30 Tablet 1 ??? clobetasol (TEMOVATE) 0.05 % Cream Apply to affected area 2 times daily. Apply to leg only. Do not apply to groin or face. 30 Gram 1 No current facility-administered medications on file prior to visit. Review of Systems: Gen: No weight loss or weight gain, No change in energy level Skin: No rashes or eruptions HEENT: No sinus complaints, No vision changes Lungs: No cough, No shortness of breath,No wheezing, No sputum Cardiac: No CP, No PND, No orthopnea, No LE swelling GI: No nausea, No vomiting, diarrhea; No BRBPR or melena : No dysuria , No frequency changes, No urgency Musculoskeletal: No back pain, No neck pain, No joint pain or swelling, No myalgias Neuro: No headaches, No weaknesses, No numbness, No tingling Heme/Onc: No easy bruising, No bleeding, No melena, No hematochesia Objective: Initial Vitals Vitals: 09/02/19 1500 BP: 112/68 Pulse: 80 Temp: 98.2 ??F (36.8 ??C) TempSrc: Oral Weight: 68.7 kg (151 lb 6 oz) Height: 6' (1.829 m) Physical Exam ?? Gen: ANO x3, thin, cachectic ?? Neuro: Able to lift bilateral lower extremities against gravity at the hip, able to fully extendat the knee against gravity. Now also able to oppose some resistance, overall 4- out of 5 strength.Seems slightly improved from prior. ?? HEENT: NCAT, PERRLA, EOMI, no thrush present ?? Cardiac: RRR, nl S1/S2, no m/g/r ?? Pulm: CTAB, Symmetric air entry, No c/w/r ?? Abdomen: Soft nontender nondistended ?? Skin: Area of plaque psoriasis on anterior mc much improved since starting topical steroid. Has several smaller hyperpigmented lesions that are non-plaque that patient states bother him. Has thick dystrophic nails that are flaking and peeling. ?? Extremities: no edema Data Review: BMP:No results for input(s): GLUCOSE, BUN, CREAT, NA, K, CL, CO2, ANIONGAP, CAIONIZED, MG, PO4 in the last 72 hours. CrCl cannot be calculated (Patient's most recent lab result is older than the maximum 7 days allowed.). Lab Results Component Value Date/Time HEMOGLOBIN A1C 5.2 07/31/2019 11:16 AM CREATININE 0.79 08/03/2019 06:40 AM Assessment and Plan: Moderate depression-sleep and appetite are good. After discussing various treatment options, patient agrees to start Zoloft 50 mg daily. 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 Patient did go to lab today to get repeatviral load and CD4 count. Patient has gained more than 10 pounds and starting ART, thrush has resolved. 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 MRI of the spine showed abnormal enhancement. Previously discussed MRI findings with Dr. Edwards who feels most consistent with HIV myelopathy. Patient does seem to be having some improvement since starting on ART. Patient order for physical therapy, he will arrange unable to get transportation. Neurology referralin [facility]. Would recommend repeat MRI of the spine in 4 to 6 weeks to assess change in enhancement once viral load suppressed. Plaque psoriasis-patient with lower extremity plaque psoriasis demonstrated on skin biopsy performed by Dr. Santamaria in the hospital. This is improved substantially on topical steroids. However patienthas several smaller hyperpigmented nodules present on his skin. Referral placed for dermatology, sherif ointment on September 16. May need additional biopsies. Syphilis-patient with positive RPR in July 2017. Still with positive RPR here. Status post IM benzathine penicillin injections, will need to repeat RPR titer to ensure appropriate reduction and delusional titer following treatment. Prior GC and Chlamydia testing in the hospital was negative. Anal condyloma-following colorectal surgery. Will need to schedule laser removal of condyloma in the future. Vaccinations-patient is due for multiple vaccinations. However he is a bit overwhelmed today. Will defer to infectious diseases recommendation regarding catching patient up on required vaccines. Patient has hepatitis A antibodies, hepatitis C negative. However no hepatitis B antibodies detected, solikely will need repeat hepatitis B series. Patient received both PCV 13 and 23 on the same day August 06. Also received first dose of hepatitis B vaccine on August 06. Patient should also likely receive Tdap. Given that both pneumococcal vaccines were given in the same day, defer to infectious disease regarding timing for follow-up dosing. Normally would have given 23 valent at least 8 weeks after the 13 Valent. Not sure if 23 valent will need to be repeated. Rose Mary Wallace MD EN GRINDER * Mira Dempsey - 09/02/2019 3:02 PM CST 09/02/2019 3:02 PM Phil Chase : 1995 ASSESSMENTS Pain: Are you having pain right now? Yes Rate your pain on a scale of 1 - 10: 9 Location of pain: leg Frequency of pain? intermittent Character of pain? aching For Internal Medicine Encounter: Are you on a narcotic pain medication? no If yes, Pain Disability Index completed na (scan into record) Communication: Communication problems? Language None Abuse/Violence: Are you in a relationship [...] was an appointment offered to see a Installment Account Checker?not asked EN GRINDER documented in this encounter Miscellaneous Notes * Patient Instructions - Rose Mary Wallace MD - 09/02/2019 3:38 PM PLATEN GRINDER Go to the lab today to have your blood drawn. manager group home your medications- from [facility] pharmacy. The [facility] pharmacy will have nifedipine ready or Sunday. Call the [facility] pharmacy ([facility] at [phone] to let them know you need your medications delivered. They need to hear from you and confirm your address. I have prescribed a new medication for depression called sertraline. The prescription was sent to [facility] pharmacy. You need to take it daily. If you have any thoughts of suicide, call 911. The suicide hotline number is . See Dr. Ac with infections disease on Sep 08 at 10:30 ([facility], 7th floor, room 7018B) See dermatology on Sep 16 at 8:30 am. ([facility] clinic) You must call between 7:30am to 5:30pm (M-F) to be screened to see if you qualify for Medicaid. Until you notify us that you have gone through the screening process, we will be unable to apply mallory to any charges. This means that you will be receiving a statement for your recent charges that show an uninsured discount has been applied; you will be responsible for 65% of the total charges. Any time you are going to be seen by another specialist, you can call the clinic and ask for an appointment to see our social welfare administrator or physician on the same day. EN GRINDER EN GRINDER EN GRINDER EN GRINDER EN GRINDER EN GRINDER EN GRINDER documented in this encounter Plan of Treatment Scheduled Referrals Name Type Priority Associated Diagnoses Order Schedule AMB REFERRAL TO DERMATOLOGY Outpatient Referral Routine Plaque psoriasis Ordered: 09/02/2019 documented as of this encounter Visit Diagnoses Diagnosis Plaque psoriasis- Primary Other psoriasis Current moderate episode of major depressive disorder without prior episode documented in this encounter
--- OUTSIDE RECORDS SUMMARY | 2024-08-10 03:49 | XMS_ITS | Encounter Summary ---
Author Organization [facility] Address [address] [place] [address] Care Team Providers Care Food Beverage Manager Name Role Phone Unavailable Primary Care Provider Unavailabl e Reason for Visit * Reason Comments Establish Care * Eval and Treat (2-4 Days) - Closed Specialty Diagnoses / Procedures Referred By Ara cazares Referred To Contact General Surgery Diagnoses Rectal itching Rose Mary Wallace MD Phone: tel: fax: Lucho Tate MD [address] [facility] [address] [place] [address] Phone: tel: fax: Referral ID Status Reason Start Date Expiration Date V isits Requested Visits Authorized [id number] Closed CRS To Schedule (STL) 08/25/2019 08/25/2020 1 1 Encounter Details Date Type Department Care Team (Late st Contact Info) Description 09/02/2019 12:15 PM DATA INTEGRITY ANALYST Office Visit [facility] [place] [address] [facility] [address] [place] [address] Lucho Tate MD [address] [place] [address] [place] [address] Anal condyloma (Primary Dx) Social History Tobacco Use Types Packs/Day Years Used Date Smoking Tobacco: Never Smokeless Tobacco: Never Alcohol Use Standard Drinks/Week Comments Never 0 (1 standard drink = 0.6 oz pur e alcohol) Sex and Gender Information Value Date Recorded Sex Assigned at Not on file Legal Sex Male 9:34 AM DATA INTEGRITY ANALYST Gender Identity Not on file Sexual Orientation Not on file documented as of this encounter Last Filed Vital Signs Vital Sign Reading Time Taken Comments Blood Pressure 111/73 09/02/2019 1:33 PM DATA INTEGRITY ANALYST Pulse 99 09/02/2019 1:33 PM DATA INTEGRITY ANALYST Temperature - - Respiratory Rate - - Oxygen Saturation - - Inhaled Oxygen Concentration - - Weight 68.9 kg (152 lb) 09/02/2019 1:33 PM DATA INTEGRITY ANALYST Height 182.9 cm (6') 09/02/2019 1:33 PM DATA INTEGRITY ANALYST Body Mass Index 20.61 09/02/2019 1:33 PM DATA INTEGRITY ANALYST documented in this encounter Progress Notes * Lucho Tate MD - 09/02/2019 12:26 PM CST [facility] Patient: Phil Chase / 23 y.o. / male : 1995 Date: 09/02/2019 CSN: [id number] Chief Complaint: Rectal itching History of Present Illness: Phil Chase is a 23 y.o. male that is seen in consultation at the request of Dr. Wallace for rectal itching. He states that his itching is worse at night. He also reports pain with BMs and bleeding upon wiping. His HIV test on 07/31/19 was positive. He has leg weakness due to the HIV. No previous colonoscopy on record. Please also refer to scanned medical history. Past Medical History: Diagnosis Date ??? History of HIV infection Past Surgical History: Procedure Laterality Date ??? PT DENIES RELEVANT SURGICAL HISTORY Current Outpatient Medications Medication Sig Dispense Refill ??? gabapentin (NEURONTIN) 300 mg capsule Take [...] 30 Gram 1 No current facility-administered medications for this visit. No Known Allergies Social History Socioeconomic History ??? Marital status: Single Spouse name: Not on file ??? Number of children: Not on file ??? Years of education: Not on file ??? Highest education level: Not on file Occupational History ??? Not on file Social Needs ??? Financial resource strain: Not on file ??? Food insecurity: Worry: Not on file Inability: Not on file ??? Transportation needs: Medical: Not on file Non-medical: Not on file Tobacco Use ??? Smoking status: Never Smoker ??? Smokeless tobacco: Never Used Substance and Sexual Activity ??? Alcohol use: Never Frequency: Never ??? Drug use: Never ??? Sexual activity: Not Currently Partners: Male Lifestyle ??? Physical activity: Days per week: Not on file Minutes per session: Not on file ??? Stress: Not on file Relationships ??? Social connections: Talks on phone: Not on file Gets together: Not on file Attends samaritan service: Not on file Active member of club or organization: Not on file Attends meetings of clubs or organizations: Not on file Relationship status: Not on file ??? Intimate partner violence: Fear of current or ex partner: Not on file Emotionally abused: Not on file Physically abused: Not on file Forced sexual activity: Not on file Other Topics Concern ??? Not on file Social History Narrative ??? Not on file Family History Problem Relation Name Age of Onset ??? Healthy Father ??? Healthy Mother ??? Healthy Sister ??? Healthy Brother ??? Diabetes Maternal Grandmother ??? Diabetes Maternal Grandfather Review of Systems: History obtained from the patient General ROS: negative for weight changes, fever Psychological ROS: negative for anxiety or depressive symptoms Ophthalmic ROS: negative for visual changes, ocular redness or discharge ENT ROS: negative Allergy and Immunology ROS: negative for itchy eyes, nasal congestion, sneezing, lymphadenopathy Hematological and Lymphatic ROS: negative for swollen glands Endocrine ROS: negative for polyuria/polydipsia or new changes in weight Respiratory ROS: negative Cardiovascular ROS: negative for chest pain or dyspnea on exertion Gastrointestinal ROS: see HPI Genito-Urinary ROS: negative for dysuria, trouble voiding, or hematuria Musculoskeletal ROS: negative for back pain, neck pain or joint pain or swelling Neurological ROS: negative for TIA or stroke symptoms Dermatological ROS: negative for skin rashes or unusual skin lesions Physical Exam: General appearance alert, cooperative, no distress, appears stated age Head Normocephalic, without obvious abnormality, atraumatic Eyes conjunctivae/corneas clear. EOM's intact. Ears Normal external ear canals AU Nose Nares normal. Septum midline. Throat Lips, mucosa, and tongue normal. Neck supple, symmetrical, trachea midline,symmetric Back symmetric Lungs Symmetric; normal WOB Heart Regular rate and rhythm Abdomen soft, non-tender. nondistended. No masses. Pelvic Deferred Extremities normal Skin Skin color, texture, turgor normal. Anus External exam shows anal condyloma. TREY is normal. Neurologic Normal; grossly intact Procedure Anoscopy Pt placed in the prone sumeet-knife exam position. Following examination of perianal skin, a lubricated anoscope was inserted and the anal canal was examined circumferentially. The examination was normal. Lab: Lab Results Component Value Date/Time WBC 2.2 (L) 08/03/2019 06:40 AM HEMOGLOBIN 11.1 (L) 08/03/2019 06:40 AM HEMATOCRIT 35.3 (L) 08/03/2019 06:40 AM PLATELETS 300 08/03/2019 06:40 AM MCV 82.7 08/03/2019 06:40 AM Lab Results Component Value Date/Time SODIUM 139 08/03/2019 06:40 AM POTASSIUM 4.3 08/03/2019 06:40 AM CHLORIDE 111 (H) 08/03/2019 06:40 AM CO2 20 (L) 08/03/2019 06:40 AM CALCIUM 8.6 08/03/2019 06:40 AM BUN 8 08/03/2019 06:40 AM CREATININE 0.79 08/03/2019 06:40 AM GLUCOSE 94 08/03/2019 06:40 AM ANION GAP 8 08/03/2019 06:40 AM Patient Active Problem List Diagnosis Code ??? [...] B20, G95.9 ??? Right foot drop M21.371 Impression: Anal condyloma Plan: Prescribed Nifedipine and lidocaine. Recommended EUA with excision and fulguration of anal condyloma. Patient would like to proceed, butwants to schedule at a later time. Tobacco Cessation Counseling Advise: Counseled on tobacco cessation, health benefits of quitting, and current and intermediate project manager risks if continued smoking He is not a tobacco user. This note has been prepared by John Chavarria, Maintenance Man, for Dr. Tate on 09/02/19 at 12:27 PM The scribe's documentation has been prepared under my direction and personally reviewed by me in its entirety. I confirm that the note above accurately reflects all work, treatment, procedures, and medical decision making performed by me -- Lucho Tate on 09/02/19 1:36 PM INTEGRITY ANALYST documented in this encounter Procedure Notes * Lucho Tate MD - 09/15/2019 5:34 PM CSTAssociated Order(s): ANOSCOPY Procedure(s): IL ANOSCOPY DX W/COLLJ SPEC BR/WA SPX WHEN PRFRMD Pre-Procedure Diagnose(s): Anal condyloma See progress note. INTEGRITY ANALYST documented in this encounter Plan of Treatment Not on file documented as of this encounter Procedures Procedure Name Priority Date/Time Associated Diagnosis Comments IL ANOSCOPY DX W/COLLJ SPEC BR/WA SPX WHEN PRFRMD Routine 09/15/2019 5:34 PM DATA INTEGRITY ANALYST Anal condyloma documented in this encounter Results * IL ANOSCOPY DX W/COLLJ SPEC BR/WA SPX WHEN PRFRMD (09/15/2019 5:34 PM DATA INTEGRITY ANALYST) Narrative [facility] - 09/15/2019 5:34 PM DATA INTEGRITY ANALYST Lucho Tate MD ? 09/15/2019 ??5:35 PM See progress note. us Lucho Tate MD PROCEDURE/MINOR SURGICAL O RDERABLES Final Result [facility] documented in this encounter Visit Diagnoses Diagnosis Anal condyloma- Primary Condyloma acuminatum documented in this encounter
--- OUTSIDE RECORDS SUMMARY | 2024-08-10 03:49 | XMS_ITS | Encounter Summary ---
Author Organization [facility] Address [address] Attn: Epic Prelude ADT [place] [address] Care Team Providers Care Switch Technician Name Role Phone Unavailable Primary Care Provider Unavailabl e Encounter Details Date Type Department Care Team (Latest Contact Info) Description 09/02/2019 Travel Social History Tobacco Use Types Packs/Day Years Used Date Smoking Tobacco: Never Smokeless Tobacco: Never Alcohol Use Standard Drinks/Week Comments Never 0 (1 standard drink = 0.6 oz pur e alcohol) Sex and Gender Information Value Date Recorded Sex Assigned at Not on file Legal Sex Male 9:34 AM INDUSTRIAL RELATIONS MANAGER Gender Identity Not on file Sexual Orientation Not on file documented as of this encounter Plan of Treatment Not on file documented as of this encounter Visit Diagnoses Not on filedocumented in this encounter
--- OUTSIDE RECORDS SUMMARY | 2024-08-10 03:49 | XMS_ITS | Encounter Summary ---
Author Organization [facility] Address [address] [place] [address] Care Team Providers Care Reservoir Engineering Advisor Name Role Phone Unavailable Primary Care Provider Unavailabl e Reason for Visit * Reason Onset Date Comments HIV Positive 08/20/2019 Encounter Details Date Type Department Care Team (Late st Contact Info) Description 08/20/2019 Telephone [facility] [address] [place] [address] Rose Mary Wallace MD [address] [place] [address] HIV Positive Social History Tobacco Use Types Packs/Day Years Used Date Smoking Tobacco: Never Smokeless Tobacco: Never Alcohol Use Standard Drinks/Week Comments Never 0 (1 standard drink = 0.6 oz pur e alcohol) Sex and Gender Information Value Date Recorded Sex Assigned at Not on file Legal Sex Male 9:34 AM IT BUSINESS ANALYST Gender Identity Not on file Sexual Orientation Not on file documented as of this encounter Miscellaneous Notes * Telephone Encounter - Rose Mary Wallace MD - 08/20/2019 11:17 AM IT BUSINESS ANALYST Spoke with Manuel Chase by telephone today. Reached him at telephone number [phone]. Manuel is doing well. States he is taking his medications regularly. He has a ride today to [place] as a possible long-term housing option. It is unclear if patient will be acceptedhe does not currently have active Medicaid. With Manuel's permission, I also spoke with Manuel's assigned rehabilitation case coordinator for a DIP enrollment. Patient's rehabilitation case coordinator Alvaro, telephone [phone]. We discussed as most current care plan. Alvaro will be meeting with patient tomorrow at 1 PM to complete paperwork. Anticipate submitting enrollment to ADAP on August 22. Alvaro feels ADAP will likely be active between August 25 and August 27. We anticipate patient's Dovato will be covered prior to him running out of his [id number] supply. Alvaro said patient prefers to fill at their pharmacy, they will deliver medications.Stable follow-up with patient to determine his preferred pharmacy for filling medications and will let me know so prescriptions can be submitted to the pharmacy of choice. Patient's machine technician Alvaro said he would be happy to fax Manuel's letter of support to us here at [facility] in order to complete his clinic application. I provided [facility] fax number. Patient knows he needs to come in to complete his IM benzathine penicillin injections. He is hopeful he can have this done by Sunday. Patient requested that I continue to contact him for follow-up. He states that this time he is committed to remaining in care and is afraid of falling through the cracks. I assured Manuel that we will continue to reach out and support him throughout his process of establishing a comprehensive careplan. BUSINESS ANALYST documented in this encounter Plan of Treatment Not on file documented as of this encounter Visit Diagnoses Not on filedocumented in this encounter
--- OUTSIDE RECORDS SUMMARY | 2024-08-10 03:49 | XMS_ITS | Encounter Summary ---
Author Organization [facility] Address [address] [place] [address] Care Team Providers Care Windows Server Support Technician Name Role Phone Unavailable Primary Care Provider Unavailabl e Reason for Referral * Eval and Treat (Routine) - Closed Specialty Diagnoses / Procedures Referred By Ara t Referred To Contact Neurology Diagnoses Myelopathy associated with HIV infection Rose Mary Wallace MD Phone: tel: fax: Referral ID Status Reason Start Date Expiration Date Visits Requested Visits Authorized [id number] Closed Performing Department To Schedule (STL) 08/15/2019 08/15/2020 1 1 ER AND DRIER Reason for Visit * Reason Comments Hospital Follow Up Leg Pain Encounter Details Date Type Department Care Team (Late st Contact Info) Description 08/15/2019 1:00 PM DIPPER AND DRIER Office Visit [facility] [address] [place] [address] Rose Mary Wallace MD [address] [place] [address] Symptomatic HIV infection (Primary Dx); Syphilis; Right foot drop; Hemorrhoids, unspecified hemorrhoid type; Myelopathy associated with HIV infection; Plaque psoriasis Social History Tobacco Use Types Packs/Day Years Used Date Smoking Tobacco: Never Smokeless Tobacco: Never Alcohol Use Standard Drinks/Week Comments Never 0 (1 standard drink = 0.6 oz pur e alcohol) Sex and Gender Information Value Date Recorded Sex Assigned at Not on file Legal Sex Male 9:34 AM DIPPER AND DRIER Gender Identity Not on file Sexual Orientation Not on file documented as of this encounter Last Filed Vital Signs Vital Sign Reading Time Taken Comments Blood Pressure 144/102 08/15/2019 12:51 PM DIPPER AND DRIER Pulse 100 08/15/2019 12:51 PM DIPPER AND DRIER Temperature 36.7 ??C (98.1 ??F) 08/15/2019 12:[address] Respiratory Rate - - Oxygen Saturation - - Inhaled Oxygen Concentration - - Weight 64.9 kg (143 lb) 08/15/2019 12:51 PM DIPPER AND DRIER Height 182.9 cm (6') 08/15/2019 12:51 PM DIPPER AND DRIER Body Mass Index 19.39 08/15/2019 12:51 PM DIPPER AND DRIER documented in this encounter Progress Notes * Rose Mary Wallace MD - 08/15/2019 4:33 PM CST [facility] attending progress note Chief complaint: Foot weakness HPI: Patient is a 23-year-old male with HIV AIDS last known CD4 count of 6 who presents today for follow-up in clinic from his recent hospitalization. He has a diagnosis of HIV as well as syphilis. He was hospitalized in June but had to leave the hospital AGAINST MEDICAL ADVICE prior to completing treatment due to the in the family. He did follow-up with infectious diseases after dischar on August 06. At that time he was given a 30-day sample of Dovato which she has been taking regularly. He has not yet accessed any prophylaxis medications or other medications due to no access tocare. He was seen in the emergency department on July 11 with complaints of right foot weakness and foot drop. 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 He also received his first dose of IM benzathine penicillin for treatment of his syphilis. He presents today to establish care in [facility]. He does complain of inability to dorsiflex his right foot. He has nonspecific burning and tingling but no particular pain. He has decrease in station in the foot. He is currently walking with a walker. He has a scaly itchy rash on his left leg. Punch biopsy done in the hospital was consistent with psoriasis. He notes irritation and thickening of his right thumbnail which is bothersome. The thrush he previously had while in the hospital is resolved after being on fluconazole. He is gained 13 pounds since discharge from the hospital. Social history: Patient has unstable housing arrangement at this time. He has been staying with hisgrandparents, at times staying in a hotel. He has disclosed to some but not all of his family members his HIV diagnosis. He states that in general they have been supportive. Patient does endorse having male sexual partners exclusively. Has engaged in anal intercourse and oral intercourse with males, both penetrating and receiving. He denies having any sexual contact since learning of his HIV diagnosis. He was first diagnosed in 2018 but did not seek care due to not havi insurance and not being sure where to go for treatment. He is currently unemployed. He previously worked but has not been able to work since getting thinner and having difficulty ambulating. He is currently completely dependent on his family for financialsupport. He denies any alcohol use. Denies any past or present drug use. Denies any history of IV drug use. Denies exchanging sex for drugs or money. Denies any history of intimate partner violence. States heis not currently in a relationship. Past medical history: HIV Past surgical history: Denies Family history: Diabetes in grandparents Current medications: Dovato, 1 tab daily Allergies: No known drug allergies Review of systems: General: 13 pound weight gain since leaving the hospital, no fevers or chills Head: Some thinning of the hair HEENT: No ear pain, no discharge, no nasal discharge, no sinus fullness, no hearing complaints Mouth: States prior thrush is resolved with no dysphagia or oral lesions Respiratory: Denies cough, shortness of breath CV: Denies chest pain, dyspnea on exertion, palpitations GI: Reports regular bowel movements, no diarrhea, constipation, or blood in stools. Reports some rectal itching Heme: No bleeding, bruising MSK: No joint pains, no limited range of motion Neurology: No headaches, no vision change, no back pain, reports inability to plantar flex right foot Skin: Dry itchy rash on anterior left mc, some dry skin on back, Physical exam: General: Thin cachectic -Algerian male, somewhat disheveled, nontoxic appearing Head: Thinning hair, dry scalp, no scalp lesions seen Eyes, mild proptosis, no scleral icterus, conjunctiva clear Ears: TMs clear with normal light reflex bilaterally, some inflammation in external auditory canalsbilaterally (likely related to Q-tip cleaning) Mouth: Oropharynx clear, no lesions, no thrush, no vesicles Neck: Supple, no anterior adenopathy, no thyromegaly Chest: Clear to auscultation bilaterally, no wheezes rales or rhonchi CV: Regular rate and rhythm, no murmurs rubs or gallops , Abdomen, thin, scaphoid, soft nontender, nondistended, normal bowel sounds Rectal: Mild hemorrhoids appreciated, mild skin tags, no vesicles, no HPV or warts visible Genital: Circumcised, no penile lesions, no discharge, varicocele with fullness nontender on the right testes, reproducible hernia, left testis normal Extremities: No joint effusions, no joint inflammation noted Neuro: Patient unable to flex toes of his right foot, unable to dorsiflex right foot, 4 out of 5 power with plantar flexion in right foot, 4 out of 5 power with leg extension on the right. Normal power on the left. Decreased vibration sensation bilaterally Skin: Patchy dry scale on anterior left mc, some hyperpigmentation, said prior biopsy well-healed. Some dry spots on back, no lesions Assessment and plan HIV-AIDS: Last CD4 count of 6, started on ART by infectious diseases on August 06 with Dovato samples. -[facility] pharmacy -Discussing with pharmacy plan to ensure patient has meds in hand prior to running out of his current medications (approximately 2-week supply left for patient currently) -PCP prophylaxis: Bactrim DS 1 tab daily -WERO prophylaxis: Azithromycin 1200 mg q. Weekly Syphilis: Positive syphilis testing during recent hospital stay, recommended for 3 doses of IM benzathine penicillin -2.4 million benzathine penicillin IM given in ED visit on August 11 -Dose #2 (patient scheduled for nurse visit on August 18 to receive second dose of IM benzathine penicillin -Dose #3 of IM benzathine penicillin 2,400,000 units due on August 25, will need to schedule nursevisit Right foot drop: Patient has right foot drop present, decreased vibratory sensation. 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 Patient also with known syphilis. -Discussed with infectious diseases by phone -We will see how much symptoms improved with initiation of ART and syphilis treatment -Started on gabapentin 300 at bedtime with plan to uptitrate as needed for burning sensation -Neurology consult placed per ID recommendation Rectal itching: Patient with subjective rectal itching. On exam, no visible lesions, warts, vesicles. Patient does have some skin tags and hemorrhoids present -Anusol suppositories for possible hemorrhoids -If symptoms do not improve, will need rectal swab for testing and possible proctoscopic examination Psoriasis: Abnormal rash on leg was biopsied while inpatient and findings consistent with psoriasis -Trial of clobetasol cream -Follow-up with dermatology if no improvement Plan for follow-up BMP, TSH, lipids. Repeat viral RNA and CD4 count per infectious diseases. Return to clinic in short-term follow-up. Patient met with intake counselor at [facility] to ensure all paperwork for clinic is completed. Patient also met with social media content specialist in the clinic. Ensured patient is referred to case management intake for enrolling with state program for ADAP access. ER AND DRIER * Mishel Reyes RN - 08/15/2019 12:52 PM CST 08/15/2019 12:52 PM Phil Chase : 1995 ASSESSMENTS Pain: Are you having pain right now? Yes Location of pain: hips For Internal Medicine Encounter: Are you on [...] you smoke, are you ready to quit? No Social History Tobacco Use ??? Smoking status: Never Smoker ??? Smokeless tobacco: Never Used Substance Use Topics ??? Alcohol use: Never Frequency: Never ??? Drug use: Never Depression: Are you feeling down/depressed/hopeless? no Because of your mood, do you have little interest or pleasure in doing things? no If yes to either question, was an appointment offered to see a Field Service Coordinator?not asked ER AND DRIER documented in this encounter Miscellaneous Notes * Patient Instructions - Rose Mary Wallace MD - 08/15/2019 2:49 PM DIPPER AND DRIER Continue to take your Dovato daily. Do not miss any doses. Start Bactrim DS 1 tablet daily. This will prevent pneumocystis infection. Take azithromycin 1200 mg weekly. This will prevent mycobacterial infection. Take gabapentin, 300 mg at bedtime. This is to treat your nerve tingling and burning. Use Anusol suppositories twice daily as needed. If your rectal itching and discomfort does not improve, follow-up for further evaluation including possible rectal swab. Use the clobetasol cream on the skin lesion on your left leg. Do not use that cream on face or genitals. A referral has been placed for neurology clinic. We expect that your foot drop should improve with treatment but your ID doctor would like you to also follow along with the neurologist. Please contact Dr. Ac to schedule a follow-up appointment. ER AND DRIER ER AND DRIER ER AND DRIER documented in this encounter Plan of Treatment Scheduled Referrals Name Type Priority Associated Diagnoses Orde r Schedule AMB REFERRAL TO NEUROLOGY Outpatient Referral Routine Myelopathy associated with HIV infection Ordered: 08/15/2019 documented as of this encounter Results * (ABNORMAL) COMPREHENSIVE METABOLIC PANEL (09/02/2019 4:45 PM DIPPER AND DRIER) SODIUM 139 136 - 145 mmol/L 09/02/2019 8:05 PM DIPPER AND DRIER [employer] [facility] POTASSIUM 4.2 3.5 - 5.0 mmol/L 09/02/2019 8:05 PM DIPPER AND DRIER [employer] [facility] - . [facility] CHLORIDE 102 98 - 107 mmol/L 09/02/2019 8:05 PM DIPPER AND DRIER [employer] [facility] CO2 26 22 - 29 mmol/L 09/02/2019 8:05 PM D[facility]PER AND DRIER [employer] [facility] CALCIUM 9.5 8.6 - 10.2 mg/dL 09/02/2019 8:05 PM [facility] [employer] [facility] - . [facility] BUN 8 6 - 20 mg/dL 09/02/2019 8:05 PM [facility] [employer] [facility] - . [facility] CREATININE 0.96 0.67 - 1.17 mg/dL 09/02/2019 8:05 PM [facility] [employer] [facility] - . [facility] GLUCOSE 87 74 - 99 mg/dL 09/02/2019 8:05 PM [facility] [employer] [facility] - . [facility] TOTAL PROTEIN 9.6(H) 6.7 - 8.6 g/dL 09/02/2019 8:05 PM [facility] [employer] [facility] - . [facility] ALBUMIN 4.2 3.5 - 5.2 g/dL 09/02/2019 8:05 PM [facility] DRI[facility] [employer] [facility] - . [facility] BILIRUBIN TOTAL 0.3 0.3 - 1.2 mg/dL 09/02/2019 8:05 PM [facility] [employer] [facility] - [facility] ALKALINE PHOSPHATASE 78 40 - 129 U/L 09/02/2019 8:05 PM [employer] [facility] - . [facility] AST 25 <41 U/L 09/02/2019 8:05 PM DIPPER AND DRIER [employer] [facility] - . [facility] ALT 19 <42 U/L 09/02/2019 8:05 PM [employer] [facility] SERVICES [facility] GFR >60 >=60 mL/min/1.7 3 sq meter 09/02/2019 8:05 PM [employer] [facility] Comment: eGFR has not been validated for use in the elderly (> 70 years of age), women, patients with serious co-morbid conditions, or persons with extremes of body size or muscle mass and should also be interpreted with caution in patients with acute kidney failure, dialysis dependent patients, patients reporting exceptional dietary intake (e.g. vegetarian diet, high protein diets, creatine supplementation), and patients with severe liver disease. Based on National Kidney Disease Education Program If patient is , please refer to the GFR result. GFR, >60 >=60 mL/min/1.7 3 sq meter 09/02/2019 8:05 PM [employer] [facility] ANION GAP 11 8 - 16 mmol/L 09/02/2019 8:05 PM DIP[facility] DRIER [employer] [facility] Blood Venipuncture / Unknown 09/02/2019 4:45 PM DIPPER AND DRIER 09/02/2019 5:03 PM DIPPER AND DRIER Narrative [facility] - 09/02/2019 8:05 PM DIPPER AND DRIER Samples containing indocyanine green cause interferences on Total and/or Direct Bilirubin and must not be measured. Rose Mary Wallace MD CHEMISTRY ORDERABLES Antonina l Result Performing Organization Address [facility]/ZIP Co de Phone Number [facility] [id number] [address] [place] [address] * TSH (09/02/2019 4:45 PM DIPPER AND DRIER) Pathologist [facility] TSH 1.70 0.27 - 4.20 uIU/mL 09/02/2019 8:07 PM [facility] Blood Venipuncture / Unknown 09/02/2019 4:45 PM DIP[facility] AND DRIER 09/02/2019 5:03 PM D[facility]PER AND DRIER Rose Mary Wallace MD CHEMISTRY ORDERABLES Antonina l Result Performing Organization Address [facility] Co de Phone Number [facility]# [id number] [address] [place] [address] * (ABNORMAL) LIPID PANEL (09/02/2019 4:45 PM DIPPER AND DRIER) CHOLESTEROL 119 <200 mg/dL 09/02/2019 8:05 PM [facility] SERVICES [facility] TRIGLYCERIDE 74 <150 mg/dL 09/02/2019 8:05 PM [facility] HDL 32(L) 40 - 59 mg/dL 09/02/2019 8:05 PM [facility] LDL CALCULATED 72 <100 mg/dL 09/02/2019 8:05 PM [facility] NON-HDL CHOLESTEROL 87 <130 mg/dL 09/02/2019 8:05 PM [facility] Blood Venipuncture / Unknown 09/02/2019 4:45 PM DIPPER AND DRIER 09/02/2019 5:03 PM DIPPER AND DRIER Narrative [facility] - 09/02/2019 8:05 PM DIPPER AND DRIER TOTAL CHOLESTEROL ??mg/dL ??Desirable <200 ??Borderline high [...] Ranges for Lipid Panels (NCEP/AMA) . us Rose Mary Wallace MD CHEMISTRY ORDERABLES Antonina jhaveri Result [facility] [id number] [address] [place] [address] documented in this encounter Visit Diagnoses Diagnosis Symptomatic HIV infection- Primary Human immunodeficiency virus [HIV] disease Syphilis Syphilis, unspecified Right foot drop Other acquired deformity of ankle and foot Hemorrhoids, unspecified hemorrhoid type Myelopathy associated with HIV infection Unspecified disease of spinal cord Plaque psoriasis Other psoriasis documented in this encounter
--- OUTSIDE RECORDS SUMMARY | 2024-08-10 03:49 | XMS_ITS | Encounter Summary ---
Author Organization [facility] Address [address] [place] [address] Care Team Providers Care Bottle Label Inspector Name Role Phone Unavailable Primary Care Provider Unavailabl e Encounter Details Date Type Department Care Team (Late st Contact Info) Description 08/18/2019 Chart Note [facility] [address] [place] [address] Rose Mary Wallace MD [address] [place] [address] Social History Tobacco Use Types Packs/Day Years Used Date Smoking Tobacco: Never Smokeless Tobacco: Never Alcohol Use Standard Drinks/Week Comments Never 0 (1 standard drink = 0.6 oz pur e alcohol) Sex and Gender Information Value Date Recorded Sex Assigned at Not on file Legal Sex Male 9:34 AM CIRCUIT BREAKER SUPERVISOR Gender Identity Not on file Sexual Orientation Not on file documented as of this encounter Progress Notes * Rose Mary Wallace MD - 08/18/2019 3:51 PM CST Patient did not show for his next dose of IM penicillin today for treatment of syphilis. Attempted to call patient and his cell phone number, but the numbers disconnected. Attempted to reach his mother who is his listed next of kin, but was unable to connect at that number either. Has anout of service message. I contacted [facility] department infectious disease notification section. I informed them that patient has not completed his course of treatment yet. He took the patient's demographic information and will pass it on to the [facility] who is handling follow-up contact tracing and treatment for all HIV and syphilis cases. At his visit on the , the patient was given the number for enrolling in the [place] AIDS drug assistance program and other support services. Hopefully he will complete this enrollment to receiveaccess to case management and other treatment services. We remain available to manage his medical needs should he contact the clinic. UIT BREAKER SUPERVISOR documented in this encounter Plan of Treatment Not on file documented as of this encounter Visit Diagnoses Not on filedocumented in this encounter
--- OUTSIDE RECORDS SUMMARY | 2024-08-10 03:49 | XMS_ITS | Encounter Summary ---
Author Organization [facility] Address [address] [place] [address] Care Team Providers Care Orthopaedic Surgeon Name Role Phone Unavailable Primary Care Provider Unavailabl e Encounter Details Date Type Department Care Team (Late st Contact Info) Description 09/02/2019 Orders Only [facility] Admitting [address] [place] [address] Rose Mary Wallace MD [address] [place] [address] Social History Tobacco Use Types Packs/Day Years Used Date Smoking Tobacco: Never Smokeless Tobacco: Never Alcohol Use Standard Drinks/Week Comments Never 0 (1 standard drink = 0.6 oz pur e alcohol) Sex and Gender Information Value Date Recorded Sex Assigned at Not on file Legal Sex Male 9:34 AM CONSTRUCTION TRENCH DIGGER Gender Identity Not on file Sexual Orientation Not on file documented as of this encounter Plan of Treatment Not on file documented as of this encounter Visit Diagnoses Not on filedocumented in this encounter
--- OUTSIDE RECORDS SUMMARY | 2024-08-10 03:49 | XMS_ITS | Encounter Summary ---
Author Organization [facility] Address [address] [facility] Attn: Epic Prelude ADT [place] [address] Care Team Providers Care Salesperson Household Appliances Name Role Phone Unavailable Primary Care Provider Unavailabl e Encounter Details Date Type Department Care Team (Latest Contact Info) Description 08/25/2019 Travel Social History Tobacco Use Types Packs/Day Years Used Date Smoking Tobacco: Never Smokeless Tobacco: Never Alcohol Use Standard Drinks/Week Comments Never 0 (1 standard drink = 0.6 oz pur e alcohol) Sex and Gender Information Value Date Recorded Sex Assigned at Not on file Legal Sex Male 9:34 AM CLAY STAIN MIXER Gender Identity Not on file Sexual Orientation Not on file documented as of this encounter Plan of Treatment Not on file documented as of this encounter Visit Diagnoses Not on filedocumented in this encounter
--- OUTSIDE RECORDS SUMMARY | 2024-08-10 03:49 | XMS_ITS | Encounter Summary ---
Author Organization [facility] Address [address] [place] [address] Care Team Providers Care It Telecom Technician Name Role Phone Unavailable Primary Care Provider Unavailabl e Encounter Details Date Type Department Care Team (Late st Contact Info) Description 09/02/2019 4:39 PM PANTRY STEWARD/STEWARDESS - 09/02/2019 11:59 PM PANTRY STEWARD/STEWARDESS Hospital Encounter [facility] [address] [facility] [facility], [place] [address] Rose Mary Wallace MD [address] [place] [address] Discharge Disposition: Home or Self Care Social History Tobacco Use Types Packs/Day Years Used Date Smoking Tobacco: Never Smokeless Tobacco: Never Alcohol Use Standard Drinks/Week Comments Never 0 (1 standard drink = 0.6 oz pur e alcohol) Sex and Gender Information Value Date Recorded Sex Assigned at Not on file Legal Sex Male 9:34 AM PANTRY STEWARD/STEWARDESS Gender Identity Not on file Sexual Orientation Not on file documented as of this encounter Medications at Time of Discharge lidocaine (XYLOCAINE) 5 % Ointment Apply to affected area every 3 hours as needed for Pain. Apply to perianal area 35.44 Gram 1 09/02/2019 09/04/19 20 hydrocortisone acetate (ANUSOL-HC) 25 mg Suppository Insert 1 Suppository (25 mg) by rectum daily at bedtime. 30 Suppository 1 09/02/2019 09/04/19 20 nifedipine 0.2% ointment compound Apply to perianal area 4-6 times daily as directed. 30 Gram 1 09/02/2019 06/30/20 22 sertraline (Zoloft) 50 mg tabletIndication s:Current moderate episode of major depressive disorder without prior episode Take 1 Tablet (50 mg) by mouth daily. 30 Tablet 2 09/02/2019 06/30/20 22 gabapentin (NEURONTIN) 300 mg capsuleIndicatio ns:Myelopathy associated with HIV infection Take 1 Capsule (300 mg) by mouth 3 times daily. 90 Capsule 1 08/29/2019 12/22/19 20 sulfamethoxazole -trimethoprim (BACTRIM DS) 800-160 mg tabletIndication s:Symptomatic HIV infection Take 1 Tablet by mouth daily. 30 Tablet 1 08/29/2019 11/26/19 20 dolutegravir-cameron ivudine (Dovato) 50-300 mg Tablet Take 1 Tablet by mouth daily. 30 Tablet 3 08/25/2019 05/05/20 20 dolutegravir-cameron ivudine (Dovato) 50-300 mg TabletIndication s:Symptomatic HIV infection Take 1 Tablet by mouth daily. 30 Tablet 1 08/15/2019 05/05/20 20 clobetasol (TEMOVATE) 0.05 % CreamIndications :Plaque psoriasis Apply to affected area 2 times daily. Apply to leg only. Do not apply to groin or face. 30 Gram 1 08/15/2019 3:37 PM PANTRY STEWARD/STEWARDESS 08/15/2019 09/16/19 20 documented as of this encounter Plan of Treatment Not on file documented as of this encounter Procedures Procedure Name Priority Date/Time Associated Diagnosis Comments HIV 1 RNA, QUANTITATIVE Routine 09/02/2019 4:45 PM PANTRY STEWARD/STEWARDESS Symptomatic HIV infection RPR Routine 09/02/2019 4:45 PM PANTRY STEWARD/STEWARDESS Syphilis TREPONEMA PALLIDUM CONFIRMATION Routine 09/02/2019 4:45 PM PANTRY STEWARD/STEWARDESS Syphilis CD4/CD8 T CELLS PANEL Routine 09/02/2019 4:45 PM PANTRY STEWARD/STEWARDESS Symptomatic HIV infection TSH Routine 09/02/2019 4:45 PM PANTRY STEWARD/STEWARDESS Symptomatic HIV infection LIPID PANEL Routine 09/02/2019 4:45 PM PANTRY STEWARD/STEWARDESS Symptomatic HIV infection COMPREHENSIVE METABOLIC PANEL Routine 09/02/2019 4:45 PM PANTRY STEWARD/STEWARDESS Symptomatic HIV infection documented in this encounter Results * (ABNORMAL) TREPONEMA PALLIDUM CONFIRMATION (09/02/2019 4:45 PM PANTRY STEWARD/STEWARDESS) Pathologist [facility] TREPONEMA PALLIDUM PARTICLE AGGLUT Positive (A) Negative 09/05/2019 3:21 PM PANTRY STEWARD/STEWARDESS [facility] Comment: Result suggests infection with T. pallidum at some time in the past, but does not distinguish between treated and untreated syphilis as treponemal antibodies can remain elevated despite proper treatment. ??RPR testing is recommended to distinguish between treated and untreated syphilis. For additional information on interpretation of the syphilis reverse algorithm and results, see: [email or web address] ADDITIONAL INFORMATION This test is intended to be used as a confirmatory test on samples that have been tested by another syphilis test. Test Performed by: [facility] [address] [place] [address] Commercial Loan Reviewer: Henrique Miller M.D. Ph.D.; CLIA# [id number] Blood Venipuncture / Unknown 09/02/2019 4:45 PM PANTRY STEWARD/STEWARDESS 09/02/2019 5:03 PM PANTRY STEWARD/STEWARDESS us Rose Mary Wallace MD CHEMISTRY ORDERABLES Antonina jhaveri Result [facility] * (ABNORMAL) HIV 1 RNA, QUANTITATIVE (09/02/2019 4:45 PM PANTRY STEWARD/STEWARDESS) Pathologist [facility] HIV-1 RNA PCR Detected( A) Not detected 09/03/2019 12:55 PM PANTRY STEWARD/STEWARDESS [facility] HIV-1 RNA PCR, QUANT 71 copies/mL 09/03/2019 12:55 PM PANTRY STEWARD/STEWARDESS [facility] HIV-1 RNA LOG 1.85 log copies/mL 09/03/2019 12:55 PM PANTRY STEWARD/STEWARDESS [facility] Blood Venipuncture / Unknown 09/02/2019 4:45 PM PANTRY STEWARD/STEWARDESS 09/02/2019 5:02 PM PANTRY STEWARD/STEWARDESS Narrative [facility] - 09/03/2019 12:55 PM PANTRY STEWARD/STEWARDESS The quantification range of this assay is 30 to 10,000,000 IU/mL (1.47 log to 7.00 log IU/mL). ??A result of <30 IU/mL (<1.47 log IU/mL) indicates that HIV-1 RNA is detected, but the HIV-1 RNA level present cannot be quantified accurately below this lower limit of quantification of this assay. ??Testing was performed using the Aptima HIV-1 RNA Assay (Finsphere) with the Ovuline System. Rose Mary Wallace MD CHEMISTRY ORDERABLES Antonina l Result [facility] CLWV# [id number] [address] [place] [address] * (ABNORMAL) RPR (09/02/2019 4:45 PM PANTRY STEWARD/STEWARDESS) [facility] RPR REACTIVE(A ) Non-Reacti ve 09/03/2019 8:01 AM PANTRY STEWARD/STEWARDESS [facility] Comment:Specimen sent to ref erence lab for confirmation. RPR TITER 1:64 Titer 09/03/2019 8:01 AM PANTRY STEWARD/STEWARDESS [facility] Blood Venipuncture / Unknown 09/02/2019 4:45 PM PANTRY STEWARD/STEWARDESS 09/02/2019 5:03 PM PANTRY STEWARD/STEWARDESS us Rose Mary Wallace MD CHEMISTRY ORDERABLES Antonina l Result [facility] CLWV# [id number] [address] [place] [address] * (ABNORMAL) CD4 COUNT AND T4T8 RATIO (09/02/2019 4:45 PM PANTRY STEWARD/STEWARDESS) Pathologist [facility] CD45 TOTAL LYMPH COUNT 1.76 0.82 - 2.84 thou/mcL 09/04/2019 7:02 AM [facility] CD3 85 58 - 86 % 09/04/2019 7:02 AM [facility] CD3 ABSOLUTE 1491 550 - 2202 cells/mc L 09/04/2019 7:02 AM [facility] % CD4 (T CELLS) 4(L) 32 - 64 % 09/04/2019 7:02 AM [facility] CD4 ABSOLUTE 66(L) 365 - 1437 cells/mc L 09/04/2019 7:02 [facility] % CD8 (T CELLS) 70(H) 18 - 40 % 09/04/2019 7:02 AM [facility] CD8 ABSOLUTE 1238(H) 199 - 846 cells/mc L 09/04/2019 7:02 AM [facility] CD4/CD8 RATIO 0.1(L) >=0.9 09/04/2019 7:02 AM [facility] ADDENDUM COMMENT SEE COMMENTS 09/04/2019 7:02 AM [facility] Comment: 11% of lymphocytes are CD3 positive but negative for both CD4 and CD8. A portion of testing was performed at [facility] (CLIA #[id number]), [address] [place] [address]. ADDITIONAL INFORMATION This test was developed using an analyte specific reagent. Its performance characteristics were determined by [facility] in a manner consistent with CLIA requirements. This test has not been cleared or approved by the U.S. Food and Drug Administration. Test Performed by: [place] [address] Commercial Loan Reviewer: Henrique Miller M.D. Ph.D.; CLIA# [id number] Blood Venipuncture / Unknown 09/02/2019 4:45 PM PANTRY STEWARD/STEWARDESS 09/02/2019 5:02 PM PANTRY STEWARD/STEWARDESS us Rose Mary Wallace MD HEMATOLOGY ORDERABLES Fin al Result [facility] * (ABNORMAL) COMPREHENSIVE METABOLIC PANEL (09/02/2019 4:45 PM PANTRY STEWARD/STEWARDESS) SODIUM 139 136 - 145 mmol/L 09/02/2019 8:05 PM PANTRY STEWARD/STEWARDESS [facility] - [facility] POTASSIUM 4.2 3.5 - 5.0 mmol/L 09/02/2019 8:05 PM [facility] - [facility] CHLORIDE 102 98 - 107 mmol/L 09/02/2019 8:05 PM [facility] CO2 26 22 - 29 mmol/L 09/02/2019 8:05 PM [facility] CALCIUM 9.5 8.6 - 10.2 mg/dL 09/02/2019 8:05 PM [facility] BUN 8 6 - 20 mg/dL 09/02/2019 8:05 PM [facility] - . [facility] CREATININE 0.96 0.67 - 1.17 mg/dL 09/02/2019 8:05 PM [facility] GLUCOSE 87 74 - 99 mg/dL 09/02/2019 8:05 PM [facility] TOTAL PROTEIN 9.6(H) 6.7 - 8.6 g/dL 09/02/2019 8:05 PM PANTRY STEWARD/STEWARDESS [facility] - [facility] ALBUMIN 4.2 3.5 - 5.2 g/dL 09/02/2019 8:05 PM [facility] BILIRUBIN TOTAL 0.3 0.3 - 1.2 mg/dL 09/02/2019 8:05 PM [facility] ALKALINE PHOSPHATASE 78 40 - 129 U/L 09/02/2019 8:05 PM [facility] AST 25 <41 U/L 09/02/2019 8:05 PM [facility] - . [facility] ALT 19 <42 U/L 09/02/2019 8:05 PM [facility] - . [facility] GFR >60 >=60 mL/min/1.7 3 sq meter 09/02/2019 8:05 PM [facility] Comment: eGFR has not been validated for [...] mL/min/1.7 3 sq meter 09/02/2019 8:05 PM PANTRY STEWARD/STEWARDESS [facility] ANION GAP 11 8 - 16 mmol/L 09/02/2019 8:05 PM PANTRY STEWARD/STEWARDESS [facility] Blood Venipuncture / Unknown 09/02/2019 4:45 PM PANTRY STEWARD/STEWARDESS 09/02/2019 5:03 PM PANTRY STEWARD/STEWARDESS Narrative [facility] - 09/02/2019 8:05 PM PANTRY STEWARD/STEWARDESS Samples containing indocyanine green cause interferences on Total and/or Direct Bilirubin and must not be measured. Rose Mary Wallace MD CHEMISTRY ORDERABLES Antonina l Result [facility] CLWV# [id number] [address] [place] [address] * TSH (09/02/2019 4:45 PM PANTRY STEWARD/STEWARDESS) Pathologist [facility] TSH 1.70 0.27 - 4.20 uIU/mL 09/02/2019 8:07 PM PANTRY STEWARD/STEWARDESS [facility] Blood Venipuncture / Unknown 09/02/2019 4:45 PM PANTRY STEWARD/STEWARDESS 09/02/2019 5:03 PM PANTRY STEWARD/STEWARDESS Rose Mary Wallace MD CHEMISTRY ORDERABLES Antonina l Result [facility]# [id number] [address] [place] [address] * (ABNORMAL) LIPID PANEL (09/02/2019 4:45 PM [facility]) CHOLESTEROL 119 <200 mg/dL 09/02/2019 8:05 PM [facility] TRIGLYCERIDE 74 <150 mg/dL 09/02/2019 8:05 PM [facility] HDL 32(L) 40 - 59 mg/dL 09/02/2019 8:05 PM [facility] - . [facility] LDL CALCULATED 72 <100 mg/dL 09/02/2019 8:05 PM [facility] NON-HDL CHOLESTEROL 87 <130 mg/dL 09/02/2019 8:05 PM [facility] Blood Venipuncture / Unknown 09/02/2019 4:45 PM PANTRY STEWARD/STEWARDESS 09/02/2019 5:03 PM PANTRY STEWARD/STEWARDESS Narrative [facility] - [facility] - 09/02/2019 8:05 PM [facility] TOTAL CHOLESTEROL ??mg/dL ??Desirable <200 ??Borderline high [...] Wallace MD CHEMISTRY ORDERABLES Antonina jhaveri Result [facility] CLIA# [id number] [address] [place] [address] documented in this encounter Visit Diagnoses Diagnosis Symptomatic HIV infection Human immunodeficiency virus [HIV] disease Syphilis Syphilis, unspecified documented in this encounter
--- OUTSIDE RECORDS SUMMARY | 2024-08-10 03:49 | XMS_ITS | Encounter Summary ---
Author Organization [facility] Address [address] [place] [address] Care Team Providers Care Plater Helper Name Role Phone Unavailable Primary Care Provider Unavailabl e Reason for Visit * Reason Comments Other Encounter Details Date Type Department Care Team (Late st Contact Info) Description 09/02/2019 1:15 PM INVESTIGATOR OPERATOR Clinical Support [facility] [address] [place] [address] Rose Mary Wallace MD [address] [place] [address] Counseling, unspecified (Primary Dx) Social History Tobacco Use Types Packs/Day Years Used Date Smoking Tobacco: Never Smokeless Tobacco: Never Alcohol Use Standard Drinks/Week Comments Never 0 (1 standard drink = 0.6 oz pur e alcohol) Sex and Gender Information Value Date Recorded Sex Assigned at Not on file Legal Sex Male 9:34 AM INVESTIGATOR OPERATOR Gender Identity Not on file Sexual Orientation Not on file documented as of this encounter Progress Notes * Divya Mccullough LCSW - 09/02/2019 4:12 PM CST Met with pt today to check in. Pt reports he is frustrated with his situation and his difficulty with completing every day tasks due to weakness. Active listening, support and encouragement provided. Discussed symptoms of depression, Dr. Wallace prescribed Zoloft today. Pt denies SI/HI. Pt is now living in another hotel [address] [place] [address] thru [facility]'s Emergency Housing program. Pt is hoping once his Medicaid is approved, he can move into [facility]. Explained I had spoken with Alvaro, pt's special education case manager [phone] and individual counseling is not available, but there are support groups available as well as online support groups. Pt voiced understanding, states he has the information for the support groups and says he feels they may be helpful. Explained Alvaro had indicated individual counseling may be available in December 2019 through the case management program and encouraged pt to f/u with Alvaro regarding this. Reviewed successful use of SSRI's. Reminded pt to take his meds as directed, call for refills when needed, call us if there are problems with meds. Reminded pt of his f/u appts, SW f/u appt scheduled 09/08/2019. Reminded pt to call [employer] # to complete the [employer] application process. Reminded pt to call Dr. 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 human services professional to remain available as needed. STIGATOR OPERATOR documented in this encounter Plan of Treatment Not on file documented as of this encounter Visit Diagnoses Diagnosis Counseling, unspecified- Primary documented in this encounter
--- OUTSIDE RECORDS SUMMARY | 2024-08-10 03:49 | XMS_ITS | Encounter Summary ---
Author Organization [facility] Address [address] [place] [address] Care Team Providers Care Medical Writer Name Role Phone Unavailable Primary Care Provider Unavailabl e Reason for Visit * Reason Onset Date Comments Follow Up 09/02/2019 Encounter Details Date Type Department Care Team (Late st Contact Info) Description 09/02/2019 Telephone [facility] [address] [facility] [place] [address] Divya Mccullough Follow Up Social History Tobacco Use Types Packs/Day Years Used Date Smoking Tobacco: Never Smokeless Tobacco: Never Alcohol Use Standard Drinks/Week Comments Never 0 (1 standard drink = 0.6 oz pur e alcohol) Sex and Gender Information Value Date Recorded Sex Assigned at Not on file Legal Sex Male 9:34 AM OXYACETYLENE BURNER Gender Identity Not on file Sexual Orientation Not on file documented as of this encounter Miscellaneous Notes * Telephone Encounter - Divya Mccullough, VENDOR MANAGER - 09/02/2019 8:51 AM OXYACETYLENE BURNER Pt calls in, has 12 noon appt today with colorectal surgery and no ride. Pt states he is aware [facility] cannot provide cabs to/from appts but asks for one additional ride today. Discussed with Dr. Wallace, who approved cab for pt today. Faxed cab vouchers for 11a picking tech at [phone] [phone] and will call left open for return. Provided pt with # to call when he is ready to return. Encouraged pt to call [facility] Medicaid Screening #, provided # and explained he must call the screening line to complete his K application so mallory can be applied to his charges. Pt voiced understanding. Pt also states he is experiencing low mood, would like to talk further. SW appt scheduled today at 1:15p. Per Dr. Wallace, Attending appt also scheduled for pt at 1:40p. CETYLENE BURNER documented in this encounter Plan of Treatment Not on file documented as of this encounter Visit Diagnoses Not on filedocumented in this encounter
--- OUTSIDE RECORDS SUMMARY | 2024-08-10 03:49 | XMS_ITS | Encounter Summary ---
Author Organization [facility] Address [address] [place] [address] Care Team Providers Care Code Clerk Name Role Phone Unavailable Primary Care Provider Unavailabl e Encounter Details Date Type Department Care Team (Latest Contact Info) Description 08/04/2019 1:43 PM LICENSED MENTAL HEALTH PROFESSIONAL - 08/04/2019 11:59 PM LICENSED MENTAL HEALTH PROFESSIONAL Hospital Encounter [facility] Laboratory Services [facility] [address] [place] [address] Anjel Santamaria MD [address] [address] Discharge Disposition: Home or Self Care Social History Tobacco Use Types Packs/Day Years Used Date Smoking Tobacco: Never Smokeless Tobacco: Never Alcohol Use Standard Drinks/Week Comments Never 0 (1 standard drink = 0.6 oz pur e alcohol) Sex and Gender Information Value Date Recorded Sex Assigned at Not on file Legal Sex Male 9:34 AM LICENSED MENTAL HEALTH PROFESSIONAL Gender Identity Not on file Sexual Orientation Not on file documented as of this encounter Plan of Treatment Not on file documented as of this encounter Procedures Procedure Name Priority Date/Time Associated Diagnosis Comments PATHOLOGY Pathology 08/04/2019 1:52 PM LICENSED MENTAL HEALTH PROFESSIONAL documented in this encounter Results * PATHOLOGY (08/04/2019 1:52 PM LICENSED MENTAL HEALTH PROFESSIONAL) CASE REPORT Surgical Pathology Report ? Case: [id number] ? Authorizing Provider: ??Anejl Santamaria MD ? Collected: ? 08/04/2019 01:52 PM ? Ordering Location: ? [facility] ?? Received: ?08/04/2019 01:52 PM ? Services S Counts Include [address] ? Pathologist: ? Lloyd Andre MD ? Specimen: ?Leg, left, left lower leg ? 08/07/2019 9:15 AM [facility] [email or web address] [facility] ADDENDUM 1 This addendum is being issued to report the negative results of treponemal antibody immunostaining. No spirochetal organisms are identified. 08/07/2019 9:15 AM [facility] [email or web address] [facility] Addendum electronically signed by Lloyd Andre MD on 08/07/2019 at 9:15 AM FINAL DIAGNOSIS Skin, left lower leg, punch biopsy: - Psoriasiform dermatitis with eosinophils (see comment). - Post-inflammatory pigment alteration. - Treponemal IHC pending. 08/07/2019 9:15 AM [facility] [email or web address] [facility] NOSIS COMMENT COMMENT: The presence of eosinophils and retention of the granular layer would be unusual for psoriasis and is more commonly seen in a psoriasiform drug eruption. 'AIDS-associated psoriasiform dermatitis' may also show features that are not always typical of psoriasis and exacerbations may be associated with cutaneous or systemic infections. Although plasma cells are not a prominent component of the inflammatory infiltrate, a treponemal immunostain is pending to exclude syphilis. These results will be reported in an addendum. 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 08/07/2019 9:15 AM [facility] SPECIMEN DESCRIPTION (A) Left lower leg. 08/07/2019 9:15 AM [facility] GROSS DESCRIPTION Received in one container labeled Phil Chase and left lower leg is a 0.3-cm circular punch of hobbs-herzog skin. The margin is inked blue, and the tissue is entirely submitted in cassette A1. MELIA/ashley 08/07/2019 9:15 AM [facility] MICROSCOPIC DESCRIPTION The slides are labeled [id number] and Phil Chase. The left lower leg punch biopsy shows psoriasiform hyperplasia with foci of spongiosis and overlying pigmented parakeratosis. In the dermis, there is papillary dermal fibrosis with dilated and tortuous capillary loops with collections of perivascular melanophages and a mild superficial perivascular lymphocytic infiltrate with scattered eosinophils. PAS staining is negative for fungal elements. No vascular neoplasm is present. 08/07/2019 9:15 AM [facility] COMMENT Special stain and/or immunohistochemical results are interpreted with controls that demonstrate appropriate staining reactions. Note on use of immunocytochemistry reagents: This test was developed and its performance characteristics determined by [facility], Department of Laboratory Medicine. It has not been cleared or approved by the U.S. Food and Drug Administration. The FDA has determined that such clearance or approval is not necessary. The test is used for clinical purposes. It should not be regarded as investigational or for research. This laboratory is certified to perform high complexity testing. Cases may have been signed out in part or completely in the following laboratories: [facility], CLIA #[id number] [address] [place] [address] [facility][id number] [address] [place] [address] Nelsy Hillton/Bebe, GEEIA #[id number] [address], [place] [address]. 08/07/2019 9:15 AM LICENSED MENTAL HEALTH PROFESSIONAL [facility] Tissue (Leg, left) Collection / Unknown 08/04/2019 1:52 PM LICENSED MENTAL HEALTH PROFESSIONAL 08/04/2019 1:52 PM LICENSED MENTAL HEALTH PROFESSIONAL Anjel Santamaria MD PATHOLOGY/CYTOLOGY ORDERABLES Edited Result - Final [facility] CLIA# [id number] [address] [place] [address] documented in this encounter Visit Diagnoses Not on filedocumented in this encounter
--- OUTSIDE RECORDS SUMMARY | 2024-08-10 03:49 | XMS_ITS | Encounter Summary ---
Author Organization [facility] Address [address] [place] [address] Care Team Providers Care Avionics Systems Engineer Name Role Phone Unavailable Primary Care Provider Unavailabl e Reason for Visit * Reason Comments Referral Encounter Details Date Type Department Care Team (Late st Contact Info) Description 08/15/2019 10:30 AM AIR BAG BUILDER Clinical Support [facility] [address] [place] [address] Rose Mary Wallace MD [address] [place] [address] Jaci Haider, NO ADDRESS ON FILE Counseling, unspecified (Primary Dx) Social History Tobacco Use Types Packs/Day Years Used Date Smoking Tobacco: Never Smokeless Tobacco: Never Alcohol Use Standard Drinks/Week Comments Never 0 (1 standard drink = 0.6 oz pur e alcohol) Sex and Gender Information Value Date Recorded Sex Assigned at Not on file Legal Sex Male 9:34 AM AIR BAG BUILDER Gender Identity Not on file Sexual Orientation Not on file documented as of this encounter Progress Notes * Divya Mccullough LCSW - 08/15/2019 3:17 PM CST Met with pt today at the request of Dr. Wallace to assist with referral to [facility] and [facility] HIV/AIDS Case Management program. Discussed program details with pt including access to ADAP, explained referral process. Completed Release of Information for [facility] Services[facility] Authorization to Represent, same scanned into chart. Pt declines PHI form, states all communication should be with pt only at this time. Called [facility] and [facility] HIV/AIDS Case Management Intake at [phone] to initiate referral, left msg on requesting return call. Pt is still in process of completing [employer] Application. Pt states he is not working, last worked in April 2019 due to medical conditions, his Mother is paying for him to stay at a room at a hotel. Pt states he has no income, no bank statements, no ppwk whatsoever. Assisted pt with letter of support for his Mom, encouraged pt to have his mom sign and fax into [facility] so we can process his application. Faxed Tax form requesting copy of 2018 taxes be mailed to pt's grandparents' address (noted in file) as pt can and does receive mail at that address, explained we will need copies of these to processhis application. Pt states he is thinking about applying for Medicaid, due to being unable to work. Reg notes dated 08/01/2019 indicate pt was deemed ineligible for Medicaid for Adults with Disabilities d/t pt stating he works f/t for a [employer] service. Encouraged pt to keep all appts, call this worker should needs arise and be sure to follow thru with case management program as they can assist with medications, housing, etc. Provided SW contact information. Of note: Pt appeared guarded throughout our conversation but when asked, he states he is open to assistance and help from [facility] and providers. Reassured pt that we are only trying to help him access healthcare and resources, and have no secret agenda. Pt voiced understanding. computing services director to remain available as needed. BAG BUILDER documented in this encounter Plan of Treatment Not on file documented as of this encounter Visit Diagnoses Diagnosis Counseling, unspecified- Primary documented in this encounter
--- OUTSIDE RECORDS SUMMARY | 2024-08-10 03:49 | XMS_ITS | Encounter Summary ---
Author Organization [facility] Address [address] [place] [address] Care Team Providers Care Lamp Tester And Inspector Name Role Phone Unavailable Primary Care Provider Unavailabl e Reason for Visit * Reason Onset Date Comments Follow Up 08/29/2019 Encounter Details Date Type Department Care Team (Late st Contact Info) Description 08/29/2019 Telephone [facility] [address] [place] [address] Karen Franklin LCSW Follow Up Social History Tobacco Use Types Packs/Day Years Used Date Smoking Tobacco: Never Smokeless Tobacco: Never Alcohol Use Standard Drinks/Week Comments Never 0 (1 standard drink = 0.6 oz pur e alcohol) Sex and Gender Information Value Date Recorded Sex Assigned at Not on file Legal Sex Male 9:34 AM DROP TESTER Gender Identity Not on file Sexual Orientation Not on file documented as of this encounter Miscellaneous Notes * Telephone Encounter - Karen Franklin LCSW - 08/29/2019 3:13 PM DROP TESTER Pt missed appt in clinic today. Dr. Wallace spoke with pt today and he provided [phone] as a good contact number for SW to reach him. Per Dr. Wallace- pt cannot no-show any further appts. He should not schedule another appt until he is sure that he will be able to make it. Ideally, he will come in within the next month. PCP appt can be scheduled backing up to other specialist appts if he is able to come on those days. Dr. Christian order meds to [facility] and will order bloodwork, which [facility]. Pt also needs to call screening number so mallory can be applied to his charges. Attempted to call pt twice at [phone] and phone rang with no voicemail. TESTER documented in this encounter Plan of Treatment Not on file documented as of this encounter Visit Diagnoses Not on filedocumented in this encounter
--- OUTSIDE RECORDS SUMMARY | 2024-08-10 03:49 | XMS_ITS | Encounter Summary ---
Author Organization [facility] Address [address] [place] [address] Care Team Providers Care Lime Sludge Kiln Operator Name Role Phone Unavailable Primary Care Provider Unavailabl e Reason for Visit * Reason Onset Date Comments Transportation Issues 08/15/2019 Encounter Details Date Type Department Care Team (Late st Contact Info) Description 08/15/2019 Telephone [facility] [address] [facility] [place] [address] Divya Mccullough Transportation Issues Social History Tobacco Use Types Packs/Day Years Used Date Smoking Tobacco: Never Smokeless Tobacco: Never Alcohol Use Standard Drinks/Week Comments Never 0 (1 standard drink = 0.6 oz pur e alcohol) Sex and Gender Information Value Date Recorded Sex Assigned at Not on file Legal Sex Male 9:34 AM BUSINESS OBJECTS CONSULTANT Gender Identity Not on file Sexual Orientation Not on file documented as of this encounter Miscellaneous Notes * Telephone Encounter - Divya Mccullough, MANUFACTURING INDUSTRIAL ENGINEER - 08/15/2019 11:09 AM BUSINESS OBJECTS CONSULTANT Rec'd referral from Dr. Wallace indicating pt needs transportation to/from MD appt this afternoon. Called pt at [phone], offered 1x assistance cab ride to appt today. Pt in agreement. Pt reports he can be ready by 12 noon pickling operator, he is staying at a hotel, [address], [address]. Faxed cab vouchers to [employer] at [phone] for 12noon pickling operator at above address. Will call left open for pt to call when ready to return. Confirmation rec'd. Same scanned into chart. Called [employer] at [phone] to confirm fax receipt, spoke with Nicole, who confirmed faxes have been rec'd. Pt aware of noon pickling operator. Provided contact information and [facility] cab contact information. Encouraged pt to call our office should the cab not arrive at 12noon. NESS OBJECTS CONSULTANT documented in this encounter Plan of Treatment Not on file documented as of this encounter Visit Diagnoses Not on filedocumented in this encounter
--- OUTSIDE RECORDS SUMMARY | 2024-08-10 03:49 | XMS_ITS | Encounter Summary ---
Author Organization [facility] Address [address] [place] [address] Care Team Providers Care V Belt Mold Assembler And Curer Name Role Phone Unavailable Primary Care Provider Unavailabl e Encounter Details Date Type Department Care Team (Late st Contact Info) Description 08/11/2019 Orders Only [facility] INFECTIOUS DISEASE TOWER B [address] [place] [address] Daren Ac MD [address] [place] [address] HIV infection, unspecified symptom status (Primary Dx) Social History Tobacco Use Types Packs/Day Years Used Date Smoking Tobacco: Never Smokeless Tobacco: Never Alcohol Use Standard Drinks/Week Comments Never 0 (1 standard drink = 0.6 oz pur e alcohol) Sex and Gender Information Value Date Recorded Sex Assigned at Not on file Legal Sex Male 9:34 AM PRODUCTION MACHINE OPERATOR Gender Identity Not on file Sexual Orientation Not on file documented as of this encounter Plan of Treatment Not on file documented as of this encounter Visit Diagnoses Diagnosis HIV infection, unspecified symptom status- Primary documented in this encounter
--- OUTSIDE RECORDS SUMMARY | 2024-08-10 03:49 | XMS_ITS | Encounter Summary ---
Author Organization [facility] Address [address] [place] [address] Care Team Providers Care Liner Worker Name Role Phone Unavailable Primary Care Provider Unavailabl e Encounter Details Date Type Department Care Team (Late st Contact Info) Description 08/06/2019 Abstract [facility] INFECTIOUS DISEASE TOWER B [address] [facility] [address] [place] [address] Leonel Edwards MD NO ADDRESS ON FILE Social History Tobacco Use Types Packs/Day Years Used Date Smoking Tobacco: Never Smokeless Tobacco: Never Alcohol Use Standard Drinks/Week Comments Never 0 (1 standard drink = 0.6 oz pur e alcohol) Sex and Gender Information Value Date Recorded Sex Assigned at Not on file Legal Sex Male 9:34 AM UNIT TENDER Gender Identity Not on file Sexual Orientation Not on file documented as of this encounter Plan of Treatment Not on file documented as of this encounter Visit Diagnoses Not on filedocumented in this encounter
--- OUTSIDE RECORDS SUMMARY | 2024-08-10 03:49 | XMS_ITS | Encounter Summary ---
Author Organization [facility] Address [address] [place] [address] Care Team Providers Care Drug Abuse Program Coordinator Name Role Phone Unavailable Primary Care Provider Unavailabl e Encounter Details Date Type Department Care Team (Late st Contact Info) Description 08/28/2019 Abstract [facility] [address] [place] [address] Rose Mary Wallace MD [address] [place] [address] Social History Tobacco Use Types Packs/Day Years Used Date Smoking Tobacco: Never Smokeless Tobacco: Never Alcohol Use Standard Drinks/Week Comments Never 0 (1 standard drink = 0.6 oz pur e alcohol) Sex and Gender Information Value Date Recorded Sex Assigned at Not on file Legal Sex Male 9:34 AM GAMING CAGE CASHIER Gender Identity Not on file Sexual Orientation Not on file documented as of this encounter Plan of Treatment Not on file documented as of this encounter Visit Diagnoses Not on filedocumented in this encounter
--- OUTSIDE RECORDS SUMMARY | 2024-08-10 03:49 | XMS_ITS | Encounter Summary ---
Author Organization [facility] Address [address] [place] [address] Care Team Providers Care Manager House Name Role Phone Unavailable Primary Care Provider Unavailabl e Reason for Visit * Reason Onset Date Comments Transportation Issues 08/25/2019 Encounter Details Date Type Department Care Team (Late st Contact Info) Description 08/25/2019 Telephone [facility] [address] [place] [address] Divya Mccullough Transportation Issues Social History Tobacco Use Types Packs/Day Years Used Date Smoking Tobacco: Never Smokeless Tobacco: Never Alcohol Use Standard Drinks/Week Comments Never 0 (1 standard drink = 0.6 oz pur e alcohol) Sex and Gender Information Value Date Recorded Sex Assigned at Not on file Legal Sex Male 9:34 AM PEDIATRIC GENETIC COUNSELOR Gender Identity Not on file Sexual Orientation Not on file documented as of this encounter Miscellaneous Notes * Telephone Encounter - Divya Mccullough LCSW - 08/25/2019 9:43 AM PEDIATRIC GENETIC COUNSELOR Rec'd referral from Dr. Wallace indicating pt needs ride [facility] from [facility], requested cab arrangement. Pt is currently residing at [address] [place] [address], brick picker at 10a; will call left open for return trip. Pt can be reached at [phone], , . Faxed cab vouchers to [facility] at [phone], confirmation rec'd. Called [facility] to confirm receipt, confirmed. ATRIC GENETIC COUNSELOR documented in this encounter Plan of Treatment Not on file documented as of this encounter Visit Diagnoses Not on filedocumented in this encounter
--- OUTSIDE RECORDS SUMMARY | 2024-08-10 03:49 | XMS_ITS | Encounter Summary ---
Author Organization [facility] Address [address] [place] [address] Care Team Providers Care Photo Mask Pattern Generator Name Role Phone Unavailable Primary Care Provider Unavailabl e Reason for Visit * Reason Comments Financial Concerns Encounter Details Date Type Department Care Team (Late st Contact Info) Description 08/15/2019 9:45 AM DISEASE CASE MANAGER Clinical Support [facility] [address] [place] [address] Rose Mary Wallace MD [address] [place] [address] Leonor Jacques NO ADDRESS ON FILE Financial problems (Primary Dx) Social History Tobacco Use Types Packs/Day Years Used Date Smoking Tobacco: Never Smokeless Tobacco: Never Alcohol Use Standard Drinks/Week Comments Never 0 (1 standard drink = 0.6 oz pur e alcohol) Sex and Gender Information Value Date Recorded Sex Assigned at Not on file Legal Sex Male 9:34 AM DISEASE CASE MANAGER Gender Identity Not on file Sexual Orientation Not on file documented as of this encounter Progress Notes * Leonor Jacques - 08/15/2019 12:50 PM CST [x] Reviewed Clinic application with patient [x] Clinic Brochure: [x] Gave to patient [x] Reviewed Clinic policies ASE CASE MANAGER documented in this encounter Plan of Treatment Not on file documented as of this encounter Visit Diagnoses Diagnosis Financial problems- Primary Inadequate material resources documented in this encounter
--- OUTSIDE RECORDS SUMMARY | 2024-08-10 03:49 | XMS_ITS | Encounter Summary ---
Author Organization [facility] Address [address] [place] [address] Care Team Providers Care Affirmative Action Officer Name Role Phone Unavailable Primary Care Provider Unavailabl e Reason for Visit * Reason Onset Date Comments Follow Up 08/18/2019 Encounter Details Date Type Department Care Team (Late st Contact Info) Description 08/18/2019 Telephone [facility] [address] [place] [address] Divya Mccullough Follow Up Social History Tobacco Use Types Packs/Day Years Used Date Smoking Tobacco: Never Smokeless Tobacco: Never Alcohol Use Standard Drinks/Week Comments Never 0 (1 standard drink = 0.6 oz pur e alcohol) Sex and Gender Information Value Date Recorded Sex Assigned at Not on file Legal Sex Male 9:34 AM EXTERNAL GRINDER TOOL Gender Identity Not on file Sexual Orientation Not on file documented as of this encounter Miscellaneous Notes * Telephone Encounter - Divya Mccullough, POULTRY FARM LABORER - 08/18/2019 4:14 PM EXTERNAL GRINDER TOOL Called [facility]yer at [place] [facility] intake dept [phone], confirmed that their officehas received the referral for pt. Per Sawyer, pt has been referred to their program, the oil field caser has been assigned but is having difficulty contacting pt as his phone is not accepting incoming calls. Pt calls in, states his phone is off due to lack of funds, he is working on getting it turned back on. Pt states he can be reached at [phone], a friend's phone he can use. Pt states he has been playing phone tag with the [place] [facility] program. Encouraged pt to call [phone] to f/u with his oil field caser, pt voiced understanding. Attempted to reschedule pt's injection (missed today). Pt states he needs to speak with a friend toconfirm a ride to the clinic, and will call this worker back with a time he can come get his shot. Encouraged pt to do this G[facility]O, as the shot is time-sensitive. Pt voiced understanding. Pt states he has the letter of support from his Mom, and will bring this to his next OV, to hopefully complete his [facility] Application. Pt asked to speak with Dr. Wallace, explained I would have Dr. Wallace call pt back at above numberas she is not in the clinic at this time. Pt voiced understanding. Called Sawyer at [place] [facility] Intake dept [phone], provided pt's alternate number (with pt's approval) and Devona states she can give this number to the oil field caser. Dr. Wallace, Dr. Case cc'd on this encounter. RNAL GRINDER TOOL documented in this encounter Plan of Treatment Not on file documented as of this encounter Visit Diagnoses Not on filedocumented in this encounter
--- OUTSIDE RECORDS SUMMARY | 2024-08-10 03:49 | XMS_ITS | Encounter Summary ---
Author Organization [facility] Address [address] [place] [address] Care Team Providers Care Senior Bi Developer Name Role Phone Unavailable Primary Care Provider Unavailabl e Reason for Visit * Reason Onset Date Comments Medication Refill 08/29/2019 Encounter Details Date Type Department Care Team (Late st Contact Info) Description 08/29/2019 Telephone [facility] [address] [place] [address] Rose Mary Wallace MD [address] [place] [address] Medication Refill Social History Tobacco Use Types Packs/Day Years Used Date Smoking Tobacco: Never Smokeless Tobacco: Never Alcohol Use Standard Drinks/Week Comments Never 0 (1 standard drink = 0.6 oz pur e alcohol) Sex and Gender Information Value Date Recorded Sex Assigned at Not on file Legal Sex Male 9:34 AM FOREST OFFICER Gender Identity Not on file Sexual Orientation Not on file documented as of this encounter Miscellaneous Notes * Telephone Encounter - Rose Mary Wallace MD - 08/29/2019 4:15 PM FOREST OFFICER Reached out to patient due to no show. He missed his colorectal surgery appointment yesterday, but did call to reschedule. He missed today's IM appointment. He plans to attend next week. He felt bad about missing clinic. He continues to have transportationproblems. I provided support and encouragement. Encouraged him to discuss possible transportation options with family and friends. Patient has ADAP access approved. Meds sent to [facility] pharmacy which will deliver. Continue Dovato, Bactrim, Azithro. On gabapentin for neuropathy. Encouraged him to come to appointments next week as scheduled and get blood work done. ST OFFICER documented in this encounter Plan of Treatment Not on file documented as of this encounter Results * (ABNORMAL) HIV 1 RNA, QUANTITATIVE (09/02/2019 4:45 PM FOREST OFFICER) [facility] HIV-1 RNA PCR Detected( A) Not detected 09/03/2019 12:55 PM FOREST OFFICER [facility] HIV-1 RNA PCR, QUANT 71 copies/mL 09/03/2019 12:55 PM FOREST OFFICER [facility] HIV-1 RNA LOG 1.85 log copies/mL 09/03/2019 12:55 PM [facility] Blood Venipuncture / Unknown 09/02/2019 4:45 PM FOREST OFFICER 09/02/2019 5:02 PM FOREST OFFICER [facility] - 09/03/2019 12:55 PM FOREST OFFICER The quantification range of this assay is 30 to 10,000,000 IU/mL (1.47 log to 7.00 log IU/mL). ??A result of <30 IU/mL (<1.47 log IU/mL) indicates that HIV-1 RNA is detected, but the HIV-1 RNA level present cannot be quantified accurately below this lower limit of quantification of this assay. ??Testing was performed using the Aptima HIV-1 RNA Assay ([employer]) with the [employer] Manager Software System. Rose Mary Wallace MD CHEMISTRY ORDERABLES Antonina jhaveri Result [facility]# [id number] 5 [facility] [place] [id number] * (ABNORMAL) RPR (09/02/2019 4:45 PM FOREST OFFICER) [facility] RPR REACTIVE(A ) Non-Reacti ve 09/03/2019 8:01 AM FOREST OFFICER [facility] Comment:Specimen sent to ref erence lab for confirmation. RPR TITER 1:64 Titer 09/03/2019 8:01 AM FOREST OFFICER [facility] [employer] [facility] Blood Venipuncture / Unknown 09/02/2019 4:45 PM FOREST OFFICER 09/02/2019 5:03 PM FOREST OFFICER Rose Mary Wallace MD CHEMISTRY ORDERABLES Antonina jhaveri Result [facility] [employer] [facility] CLIA# [id number] [address] [place] [address] * (ABNORMAL) CD4 COUNT AND T4T8 RATIO (09/02/2019 4:45 PM FOREST OFFICER) CD45 TOTAL LYMPH COUNT 1.76 0.82 - 2.84 thou/mcL 09/04/2019 7:02 AM [facility] [employer] - [facility] CD3 85 58 - 86 % 09/04/2019 7:02 AM [facility] - [facility] CD3 ABSOLUTE 1491 550 - 2202 cells/mc L 09/04/2019 7:02 AM [facility] - [facility] % CD4 (T CELLS) 4(L) 32 - 64 % 09/04/2019 7:02 AM [facility] [employer] - [facility] CD4 ABSOLUTE 66(L) 365 - 1437 cells/mc L 09/04/2019 7:02 AM [facility] - [facility] % CD8 (T CELLS) 70(H) 18 - 40 % 09/04/2019 7:02 AM [facility] [employer] - [facility] CD8 ABSOLUTE 1238(H) 199 - 846 cells/mc L 09/04/2019 7:02 AM [facility] [employer] - [facility] CD4/CD8 RATIO 0.1(L) >=0.9 09/04/2019 7:02 AM [facility] [employer] - [facility] ADDENDUM COMMENT SEE COMMENTS 09/04/2019 7:02 AM [facility] - [facility] Comment: 11% of lymphocytes are CD3 positive but negative for both CD4 and CD8. A portion of testing was performed at [facility] (CLIA #[id number]), [address], [place] [address]. ADDITIONAL INFORMATION This test was developed using an analyte specific reagent. Its performance characteristics were determined by [facility] in a manner consistent with CLIA requirements. This test has not been cleared or approved by the U.S. Food and Drug Administration. Test Performed by: [place] [address] Administrative Appeals Tribunal Member: Henrique Miller M.D. 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
--- OUTSIDE RECORDS SUMMARY | 2024-08-10 03:49 | XMS_ITS | Encounter Summary ---
Author Organization [facility] Address [address] [place] [address] Care Team Providers Care Athletic Monitor Name Role Phone Unavailable Primary Care Provider Unavailabl e Reason for Visit * Reason Comments Referral Encounter Details Date Type Department Care Team (Late st Contact Info) Description 08/25/2019 11:45 AM SOFTWARE PRODUCT MANAGER Clinical Support [facility] [address] [place] [address] Rose Mary Wallace MD [address] [place] [address] Counseling, unspecified (Primary Dx) Social History Tobacco Use Types Packs/Day Years Used Date Smoking Tobacco: Never Smokeless Tobacco: Never Alcohol Use Standard Drinks/Week Comments Never 0 (1 standard drink = 0.6 oz pur e alcohol) Sex and Gender Information Value Date Recorded Sex Assigned at Not on file Legal Sex Male 9:34 AM SOFTWARE PRODUCT MANAGER Gender Identity Not on file Sexual Orientation Not on file documented as of this encounter Progress Notes * Divya Mccullough LCSW - 08/25/2019 3:41 PM CST Met with pt today at his request. Pt reports he is receiving case management support services thru [facility], extension educator Alvaro . Pt states he completed a Medicaid for Adults with Disabilities application with Alvaro and an ADAP application with Alvaro. Medicaid applications generally take 1-3 mo to process, pt voiced his frustration and it is unclearif the application can be expedited, given pt's diagnosis. Encouraged pt to discuss with Alvaro to see if they have an avenue to expedite the Medicaid application. Discussed how active Medicaid coverage would provide many benefits, such as transportation to and from all medical appts, coverage for inpt hospitalizations, etc. Pt indicated that once his Medicaid is active, he may be able to access housing options at [facility], states he has another extension educator Trish, working on housing for him. Pt continues to [address] a [address] [address]; the hotel is being paid for by his Mother but has very limited support and resources. Pt's phone ([phone] voice) is not working at this time (pt can text) but that he can be sometimes reached at [phone] or [phone]. Chart review reveals pt was admitted to [facility] 07/31/2019 to 08/04/2019 but left AM 08/04/2019saying his grandfather had . Pt states he has been unable to work for sometime due to illness and symptoms, [facility]. Pt states since that time, he has been living in the hotel. Although pt's Mother is helping pay for a roof over his head and some food & essentials, pt's feels his family's support is inconsistent and he feels this treatment is due to his diagnosis. Pt appeared teary in discussing his feelings, it is clear he desperately craves unconditional support. Pt states he has friends, friends who are really there for him but no one he can really stay with. Pt uses a w/c here at the hospital and a walker at home, he appears unsteady on his feet. Active listening and support provided. Pt denies SI/HI, states I would never do that to my family. Encouraged pt to access [facility] support [facility], discussed the benefits of counselingand the importance of seeking help. Pt voiced understanding, states he will talk about this with his case coordinator, Alvaro. Discussed the use of medication to help with overall mood, antidepressants and anti-anxiety medications. Pt states he is hesitant to try medication, but realizes that his mental health is important and will discuss this further with Dr. Wallace on 08/29/2019. Dr. Wallace and Dr. Case notified. Encouraged pt to come to his appt on 08/29/2019 and call with any questions/concerns. marketing services coordinator to remain available as needed. WARE PRODUCT MANAGER documented in this encounter Plan of Treatment Not on file documented as of this encounter Visit Diagnoses Diagnosis Counseling, unspecified- Primary documented in this encounter
--- OUTSIDE RECORDS SUMMARY | 2024-08-10 03:50 | XMS_ITS | Encounter Summary ---
Author Organization [facility] Address [address] [place] [address] Care Team Providers Care Tool Shaper Set Up Operator Name Role Phone Unavailable Primary Care Provider Unavailabl e Reason for Visit * Reason Comments Groin Pain swollen lymp node in his left groin, and stiffness to the right hip causing him to limp. pt also c/o intermittent sore throats x6 months -1 year. +full body shooting pains pt requests to be tested for DM because he has tingling to his feet, his hands a wrinkled, and his fingernails are yellow. recent DX of HIV * Auth/Cert Specialty Diagnoses / Procedures Referred By Ara t Referred To Contact [facility] [address] [place] [address] Phone: tel: fax: Referral ID Status Reason Start Date Expiration Date Visits Re quested Visits Authorized [id number] 1 1 Encounter Details Date Type Department Care Team (Latest Contact Info) Description 07/31/2019 10:01 AM GLASS ENGRAVER - 08/04/2019 11:35 AM [facility] [[email or web address] Hospital Encounter [facility] [address] [place] [address] Jessa Sams MD NO ADDRESS ON FILE Suly Buchanan MD [address] [place] [address] HIV infection Discharge Disposition: Left Against Medical Advice Social History Tobacco Use Types Packs/Day Years Used Date Smoking Tobacco: Never Smokeless Tobacco: Never Alcohol Use Standard Drinks/Week Comments Never 0 (1 standard drink = 0.6 oz pur e alcohol) Sex and Gender Information Value Date Recorded Sex Assigned at Not on file Legal Sex Male 9:34 AM GLASS ENGRAVER Gender Identity Not on file Sexual Orientation Not on file documented as of this encounter Last Filed Vital Signs Vital Sign Reading Time Taken Comments Blood Pressure 149/97 08/04/2019 5:00 AM GLASS ENGRAVER Pulse 60 08/04/2019 5:00 AM GLASS ENGRAVER Temperature 37 ??C (98.6 ??F) 08/04/2019 5:00 AM GLASS ENGRAVER Respiratory Rate 20 08/04/2019 5:00 AM GLASS ENGRAVER Oxygen Saturation 100% 08/04/2019 5:00 AM GLASS ENGRAVER Inhaled Oxygen Concentration - - Weight 60.9 kg (134 lb 4.8 oz) 07/31/2019 5:06 P M GLASS ENGRAVER Height 182.9 cm (6') 07/31/2019 5:06 PM GLASS ENGRAVER Body Mass Index 18.21 07/31/2019 5:06 PM GLASS ENGRAVER documented in this encounter Functional Status documented as of this encounter Discharge Summaries * Suly Buchanan MD - 08/04/2019 4:34 PM CST [facility] Adult Hospitalist Discharge Summary Phil Chase 23 y.o. male 1995 CSN: [id number] Date of Admission: 07/31/2019 Date of Discharge: 08/04/2019- Pt left AMA Discharging Physician: Suly Buchanan MD LOS: 4 days PCP: No primary care provider on file. Activity: activity as tolerated. Dispo: home Diet: No diet orders on file Code Status at Discharge: No Order Wound Care: As directed and Keep wound clean and dry Admitting Dx: <principal problem not specified> Discharge Diagnoses: Active Hospital Problems Diagnosis ??? Syphilis ??? HIV infection ??? Skin lesion of lower extremity ??? Oral thrush ??? Oropharyngeal dysphagia ??? Pain of right lower extremity ??? Cellulitis and abscess of leg ??? Skin lesions, generalized ??? History of syphilis Resolved Hospital Problems No resolved problems to display. Discharge medications and new prescriptions: Medication List CONTINUE taking these medications ibuprofen 200 mg tablet Commonly known as: MOTRIN Take 200 mg by mouth every 6 hours as needed for Pain, Mild. Refills: 0 Consultants: IP CONSULT TO INFECTIOUS DISEASES IP CONSULT TO CASE MANAGEMENT Significant Diagnostic Studies This Admission: ?? CXR FINDINGS: There is no pulmonary infiltrate, pleural effusion, pneumothorax or nodule. The cardiac and mediastinal silhouettes, usman and bony thorax are within normal limits. ? IMPRESSION: No active pulmonary disease. X ray femur R side FINDINGS: There is no evidence of acute fracture or dislocation. No concerning osseous lesions are seen. ? IMPRESSION: No acute osseous injury. X ray hip- R HISTORY: Pain; HIV infection, unspecified symptom status; Oral thrush; Oropharyngeal dysphagia; Cellulitis and abscess of leg; Cellulitis and abscess of leg; Skin lesions, generalized; History of syphilis ?? COMPARISON: Femur radiographs performed 07/31/2019 ?? FINDINGS: ?? The osseous architecture is normal and the joint spaces are maintained. Bone mineralization is normal. ? IMPRESSION: ?? 1. No evidence of acute osseous injury. Results for PHIL CHASE ( ) as of 08/04/2019 16:34 Ref. Range 07/31/2019 11:16 07/31/2019 18:51 07/31/2019 18:52 07/31/2019 22:43 07/31/2019 22:44 BLOOD CULTURE Unknown Rpt CHLAMYDIA DNA AMPLIFICATION Latest Ref Range: Not Detected Not Detected GC DNA AMPLIFICATION Latest Ref Range: Not Detected Not Detected GC/CHLAMYDIA, URINE Unknown Rpt MITOGEN-NIL Latest Units: IU/mL 0.91 CMV IGG Latest Ref Range: Negative Positive (A) HSV TYPE 1 IGG Latest Ref Range: Negative Positive (A) HSV TYPE 2 IGG Latest Ref Range: Negative Positive (A) TOXOPLASMA IGG VALUE Latest Units: IU/mL <3 TOXOPLASMOSIS IGG Latest Ref Range: Negative Negative TOXOPLASMOSIS IGM Latest Ref Range: Negative Negative MRSA PCR RESULT Latest Ref Range: MRSA not detected MRSA not detected TB1 AG - NIL Latest Units: IU/mL 0.00 TB2 AG - NIL Latest Units: IU/mL -0.01 NIL Latest Units: IU/mL 0.03 QUANTIFERON TB GOLD PLUS Latest Ref Range: Negative Negative ?? Labs from this Hospitalization Needing Follow Up: ?? Pending labs and above infectious work up- Discharge Lab Data: Lab Results Component Value Date/Time WBC 2.2 (L) 08/03/2019 06:40 AM HEMOGLOBIN 11.1 (L) 08/03/2019 06:40 AM HEMATOCRIT 35.3 (L) 08/03/2019 06:40 AM PLATELETS 300 08/03/2019 06:40 AM SODIUM 139 08/03/2019 06:40 AM CHLORIDE 111 (H) 08/03/2019 06:40 AM POTASSIUM 4.3 08/03/2019 06:40 AM CO2 20 (L) 08/03/2019 06:40 AM BUN 8 08/03/2019 06:40 AM CREATININE 0.79 08/03/2019 06:40 AM GLUCOSE 94 08/03/2019 06:40 AM INR 1.0 07/31/2019 11:16 AM AST 20 07/31/2019 11:16 AM ALT 13 07/31/2019 11:16 AM CRP 7.2 (H) 07/31/2019 11:16 AM Discharge Exam: BP (!) 149/97 (BP Location: Left arm, Patient Position (BP): Lying right side) Pulse 60 Temp 98.6 ??F (37 ??C) (Oral) Resp 20 Ht 6' (1.829 m) Wt 60.9 kg (134 lb 4.8 oz) SpO2 100% BMI 18.21 kg/m?? Physical Exam: General appearance alert, cooperative, no distress, appears stated age Lungs clear to auscultation bilaterally Heart regular rate and rhythm, S1, S2 normal, no murmur, click, rub or gallop Abdomen soft, non-tender. Bowel sounds normal. No masses, No organomegaly Extremities extremities normal, atraumatic, multiple areas of hyperpigmentation noted on arms and legs., left leg with open wounds now healing. Skin dry skin with multiple hyperpigmented spots on upper and lower extremities as well as back. Hospital Course: ?? Patient is a 23-year-old -Prydeinig male who presented to the hospital on 07/31/2019 with complaint of lower extremity pigmentation, skin breakdown, toenail infection, body aches pains, limping of the right side, oral thrush and dysphagia. Patient reported that he was diagnosed with HIV in July 2017 and has not really seeked any medical care. He was admitted to the hospital, evaluated by infectious disease. Multiple STD labs were sent. He was tested positive for syphilis. He received IV ceftriaxone (for syphilis) and Diflucan (for oral thrush) along with nystatin orally. Symptoms were gradually improving. Was noted to have a very low CD4 count. 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 He also underwent skin biopsy of 1 of the lesions of his hyperpigmented spots on theextremities by dermatology during the hospital stay. His pathology findings are currently pending. ?? Patient was highly recommended to stay and continue medical care in the hospital however he reported that he unexpectedly lost his grandfather this morning and he was very emotional and hence leftAGAINST MEDICAL ADVICE. ?? Discussed with infectious disease Dr Edwards who was covering for Dr Ac today. Patient was alsoprovided with contact information for infectious disease office number for follow-up appointment nii made as soon as possible. ?? Patient was also referred to [facility] clinic by social work pending approval. Nutritional status and in-house recommendations: Current Diet and/or Nutritional Supplementation ordered: No diet orders on file Discharge Condition: stable. Follow-up: PCP in 1 week(s). Infectious disease in 1 week or as recommended. More than 30 minutes were spent in this discharge activity. Signed: Suly Buchanan MD 08/04/2019, 4:35 PM S ENGRAVER documented in this encounter Progress Notes * Kaylynn Moreno, RN - 08/04/2019 11:06 AM CST Phil is A&O x 4. Pt verbalized to this nurse that he received news this am from Mom via phone stating his Grandfather this morning. Pt grieving at bedside verbalizing he has to leave now. This nurse provided emotional support at bedside. Offered spiritual care, pt declined to seechaplain. This nurse strongly encouraged pt to stay to see the medical team prior to leaving. Pt verbalized great emotional urgency to leave now, asking for discharge papers. informed of pt's situation and request to leave. Pt was agreeable to see Dr Santamaria if he could be seen right away. This nurse called Hina's office and wheeled pt over for skin biopsy. Up on return to unit, pt verbalizedhe could not wait for ID that his family is downstairs waiting for him. This nurse informed PT of pt condition and situation with urgency that pt will need walker prior to leaving due to severe unsteady gait. Pt seen by PT, mallory walker provided to pt, [facility] application turned into [facility]. Pt given printed resources for Linkage to Care . Pt given Dr Ac's (ID) number to follow noemí. Dr Edwards saw pt as pt was about to leave room. Reinforced pt to call office and f/u with Dr Ac. Pt signed AMA form. Has walker, transportation provided by family. S ENGRAVER * Leonel Edwards MD - 08/04/2019 10:46 AM CST INFECTIOUS DISEASES PROGRESS NOTE Phil Chase 23 y.o. [id number] Date of service: 08/04/2019,11:47 AM Admit Date: 07/31/2019 LOS: 4 days SUBJECTIVE- 24-Hr Events: The patient decided to leave AGAINST MEDICAL ADVICE as his grandfather this morning. Hereports feeling better in general, reports that thrush has markedly improved, tolerating fluids, denies fever or chills, though had a low- grade fever of 100.6 earlier this morning. Patient underwent skin biopsy from his left lower leg this morning. OBJECTIVE: Patient Vitals for the past 24 hrs: BP Temp Temp src Pulse Resp SpO2 08/04/19 0500 (!) 149/97 98.6 ??F (37 ??C) Oral 60 20 100 % 08/04/19 0300 -- -- -- -- 16 -- 08/04/19 0015 (!) 168/108 100.6 ??F (38.1 ??C) Oral (!) 58 18 100 % 08/03/19 2030 (!) 156/97 98.7 ??F (37.1 ??C) Oral 62 18 100 % There is no immunization history on file for this patient. General Appearance: Awake, alert. No distress, cachectic. HEENT: Head: Atraumatic. Eyes: pallor. Right eye exhibits no discharge. Left eye exhibits no discharge. Heart: Regular rhythm and normal heart sounds. Pulmonary/Chest: Normal breath sounds. No wheezes. Abdomen: Soft. Bowel sounds are normal. Neurological: Awake, alert and oriented. Skin: Left leg lesion covered, diffuse hyperpigmented rash. Work up: LABS: Estimated Creatinine Clearance: 123.1 mL/min (by C-G formula based on SCr of 0.79 mg/dL). No results found for this visit on 07/31/19 (from the past 24 hour(s)). All work up from this admission was reviewed. Assessment: ?? Advanced HIV/AIDS. ?? Extensive oral thrush, improving. ?? Left leg wound infection with surrounding cellulitis. Improving. ?? Diffuse hyperpigmented skin rash. Skin biopsy obtained, results pending. ?? History of syphilis. Recommendations: Patient is leaving AGAINST MEDICAL ADVICE. Explained the importance of compliance with follow-up and treatment in order to prevent further deterioration of his health and potential . He is awareof his advanced HIV/AIDS status. Patient promised to follow-up with Dr. Ac next week. Contact information were provided. Leonel Edwards MD, MS, [facility]. [facility] Infectious Diseases Office Pager: [phone] Exchange: [phone] S ENGRAVER * Anjel Santamaria MD - 08/04/2019 9:39 AM CST Patient seen for rash, mainly left lower leg since fall. Patient is HIV positive. Exam: scaly eruption mainly left lower leg. Imp:?psoriasis--r/o Kaposis. Pl: Procedure--2% with epi and 4mm punch done of rash. S ENGRAVER * Kaylynn Moreno RN - 08/03/2019 7:25 PM CST Phil is A&O x 4. Reports to this nurse he had a spell last night where he couldn't speak and was dazed but could hear and understand the staff talking to him. Described to this nurse It was like I was yelling for them to hear me, but they couldn't hear me . No noted or reports from pt of episodes of this happening this shift. Received norco x 1 for c/o right hip pain. Good appetite, tolerating meals. Afebrile; VSS. POC updated with pt of ID and Dermatology will see him tomorrow. S ENGRAVER * Rocio Roy PHARMACIST - 08/03/2019 1:26 PM CST Pharmacy Note: Vancomycin Consult Microbiology 07/31 Blood: No growth x 72 hours 07/31 Nares: MRSA not detected Assessment The patient is currently receiving vancomycin 1000 mg q8h for an indication of left leg cellulitis and wound infection. Goal trough of 10-20 mcg/ml. A trough level drawn prior to the 4th dose was 9.6mcg/ml. Estimated Creatinine Clearance: 123.1 mL/min (by C-G formula based on SCr of 0.79 mg/dL). Today is day 4 of total therapy. Plan Increase to vancomycin 1250 mg q8h Level due prior to the 4th dose: 08/04 @ 1330 PURNIMA Solo 08/03/2019 12:44 PM Cosigned by Eddie Waterman DO at 08/03/2019 3:35 PM GLASS ENGRAVER S ENGRAVER S ENGRAVER * Suly Buchanan MD - 08/03/2019 10:53 AM CST [facility] Adult Hospitalist Progress Note Admit Date: 07/31/2019 Date of Note: 08/03/2019, 10:53 AM LOS: 3 days Previous history of present illness and review of systems have been reviewed today as documented inthe H&P on 07/31/2019; medications, labs, studies, notes, orders and consults have been reviewed.I have reviewed the notes from admission. Subjective: Resting in bed Up and eating breakfast, appears to be in positive spirits today Denies any new concerns or complaints today. Objective: BP 134/83 (BP Location: Left arm, Patient Position (BP): Lying right side) Pulse 63 Temp 97.3 ??F (36.3 ??C) (Axillary) Resp 16 Ht 6' (1.829 m) Wt 60.9 kg (134 lb 4.8 oz) SpO2 100% BMI 18.21 kg/m?? Temp (24hrs), Av.9 ??F (36.6 ??C), Min:97.3 ??F (36.3 ??C), Max:98.4 ??F (36.9 ??C) Exam: General: Alert, no distress. Oral thrush Heart: Regular rate and rhythm, S1, S2 normal, no murmur, click, rub or gallop. Lungs: Clear to auscultation bilaterally Abdomen: Soft, non-tender. Bowel sounds times four. No masses, No organomegaly. Extremities: No clubbing, cyanosis or edema Skin: Skin lesions and pigmentation with open areas on the shins. Head: Normocephalic, atraumatic Neck: Supple, symmetrical, trachea midline, no adenopathy. Neuro: CNII-XII intact. Normal strength, sensation and reflexes throughout. Data Base: I have reviewed all new labs and studies resulted Results for orders placed or performed during the hospital encounter of 07/31/19 (from the past 24 hour(s)) CBC WITH DIFFERENTIAL Result Value Ref Range WBC 2.2 (L) 4.0 - 9.8 K/uL RBC 4.27 (L) 4.50 - 5.40 M/uL HEMOGLOBIN 11.1 (L) 13.6 - 16.5 g/dL HEMATOCRIT 35.3 (L) 40.0 - 48.0 % MCV 82.7 82.0 - 99.0 fL MCH 26.0 (L) 27.2 - 32.6 pg MCHC 31.4 (L) 31.5 - 35.5 g/dL RDW 14.5 11.5 - 14.5 % RDW-STDEV 43.6 37.1 - 48.7 fL PLATELETS 300 140 - 350 K/uL MPV 9.6 9.3 - 12.4 fL NEUTROPHILS 44 % LYMPHOCYTES 28 % MONOCYTES 8 % EOSINOPHILS 20 % BASOPHILS 1 % IMMATURE GRANULOCYTES 0 % NEUTROPHIL ABSOLUTE 0.97 (L) 1.90 - 7.00 K/uL LYMPHOCYTE ABSOLUTE 0.61 (L) 0.70 - 4.50 K/uL MONOCYTE ABSOLUTE 0.18 0.10 - 1.30 K/uL EOSINOPHIL ABSOLUTE 0.44 0.00 - 0.70 K/uL BASOPHILS ABSOLUTE 0.01 0.00 - 0.20 K/uL IMMATURE GRANULOCYTES ABSOLUTE 0.00 0.00 - 0.03 K/uL BASIC METABOLIC PANEL Result Value Ref Range SODIUM 139 136 - 145 mmol/L POTASSIUM 4.3 3.5 - 5.0 mmol/L CHLORIDE 111 (H) 98 - 107 mmol/L CO2 20 (L) 22 - 29 mmol/L CALCIUM 8.6 8.6 - 10.2 mg/dL BUN 8 6 - 20 mg/dL CREATININE 0.79 0.67 - 1.17 mg/dL GLUCOSE 94 74 - 99 mg/dL GFR >60 >=60 mL/min/1.73 sq meter GFR, >60 >=60 mL/min/1.73 sq meter ANION GAP 8 8 - 16 mmol/L Assessment/Plan of Actively Managed Problems 1. Known diagnosis of HIV-worrisome for possible AIDS given the chronicity and lack of treatment. Now with some skin changes worrisome for Kaposi's sarcoma. Appreciate ID consultation. Will likely need high-dose antiretroviral therapy started. CD4 count returned at 6.. Consult dermatology Sunday (called sunday for biopsy and was unable to fit in). STD work up in progress, RPR + (started ceftriaxone 08/01/19) HSV IGG + and CMV+. Await further rec's from ID. 2. Lower extremity lesions-? Cellulitis changes. continue with IV Vancomycin per ID. Wound care consult CRP level is only 7.2 on admit. 3. Oral thrush-continue nystatin orally. COntinue with IV Diflucan given toenail infection and multiple skin lesions. Improving overall. 4. Right lower extremity pain-he reported limping and pain in the right thigh, no evidence of any deformity or denies falls. X ray femur negative for any findings. X-ray of the hip completed on 08/02 was normal. 5. Inguinal hernia-noted no evidence of strangulation. Asymptomatic currently. 6. Inguinal lymphadenopathy-tender to palpation. Likely secondary to HIV. Follow-up on ID recommendations. 7. Social issues-patient has no insurance. Case management has been consulted. [facility] has been [facility] as the patient will need ID services as an outpatient. Nutrition: Current Diet and/or Nutritional Supplementation ordered: DIET GENERAL Effective Now DVT Prophylaxis - Enoxaparin Campos catheter:absent Lines: Peripheral IV PT POC OT POC Therapy Plan of Care: 2-5x/wk (08/01/19 1050) Activity Order: Present Activity: in bed (08/02/192035) Current Code Status -Full Plan discussed with patient, questions answered. Discussed with patient's nurse. Current Planned Disposition - Home early/mid week? When cleared by ID. Total time spent today was 35 minutes More than 50% of the time spent was for discussion of test results,diagnosis,expected course of thedisease,prognosis,plan of care,DC planning etc. This time may also include time spent for family/nursing conference and for discussion with any consultants. Suly Buchanan MD S ENGRAVER * Henrique Vázquez MD - 08/02/2019 10:37 PM CST [facility] 08/02/19 10:37 PM Problem: Nurse is reporting an incident where the PCT went into the patient's room tonight and the patient did not respond to questions. Patient later stated that he froze and was unable to respond. At this time, neurologic evaluation is unremarkable. Vitals: 08/02/19 0952 08/02/19 1216 08/02/19 1554 08/02/192035 Temp: 98.3 ??F (36.8 ??C) 97.7 ??F (36.5 ??C) 98.1 ??F (36.7 ??C) 98.4 ??F (36.9 ??C) Pulse: (!) 59 88 61 70 Heart Rate: BP: (!) 140/94 122/84 (!) 147/90 (!) 141/85 Mean Arterial Pressure: 106 MM HG 91 MM HG 104 MM HG 96 MM HG Resp: 18 16 16 18 SpO2: 100% 100% 100% 100% Intervention/Follow up/Discussion: Noted. No further intervention at this time; we will continue to monitor. Henrique Vázquez MD Submit an eTicket S ENGRAVER * Sluy Buchanan MD - 08/02/2019 2:31 PM CST [facility] Adult Hospitalist Progress Note Admit Date: 07/31/2019 Date of Note: 08/02/2019, 2:31 PM LOS: 2 days Previous history of present illness and review of systems have been reviewed today as documented inthe H&P on 07/31/2019; medications, labs, studies, notes, orders and consults have been reviewed.I have reviewed the notes from admission. Subjective: Resting in bed Sleeping, having R hip pain today Febrile last night Objective: BP 122/84 (BP Location: Left arm, Patient Position (BP): Sitting) Pulse 88 Temp 97.7 ??F (36.5 ??C) (Oral) Resp 16 Ht 6' (1.829 m) Wt 60.9 kg (134 lb 4.8 oz) SpO2 100% BMI 18.21 kg/m?? Temp (24hrs), Av ??F (37.2 ??C), Min:97.7 ??F (36.5 ??C), Max:102.5 ??F (39.2 ??C) Exam: General: Alert, no distress. Oral thrush Heart: Regular rate and rhythm, S1, S2 normal, no murmur, click, rub or gallop. Lungs: Clear to auscultation bilaterally Abdomen: Soft, non-tender. Bowel sounds times four. No masses, No organomegaly. Extremities: No clubbing, cyanosis or edema Skin: Skin lesions and pigmentation with open areas on the shins. Head: Normocephalic, atraumatic Neck: Supple, symmetrical, trachea midline, no adenopathy. Neuro: CNII-XII intact. Normal strength, sensation and reflexes throughout. Data Base: I have reviewed all new labs and studies resulted Results for orders placed or performed during the hospital encounter of 07/31/19 (from the past 24 hour(s)) CBC WITH DIFFERENTIAL Result Value Ref Range WBC 2.8 (L) 4.0 - 9.8 K/uL RBC 4.69 4.50 - 5.40 M/uL HEMOGLOBIN 12.2 (L) 13.6 - 16.5 g/dL HEMATOCRIT 39.1 (L) 40.0 - 48.0 % MCV 83.4 82.0 - 99.0 fL MCH 26.0 (L) 27.2 - 32.6 pg MCHC 31.2 (L) 31.5 - 35.5 g/dL RDW 14.4 11.5 - 14.5 % RDW-STDEV 43.2 37.1 - 48.7 fL PLATELETS 285 140 - 350 K/uL MPV 9.7 9.3 - 12.4 fL NEUTROPHILS 53 % LYMPHOCYTES 28 % MONOCYTES 6 % EOSINOPHILS 13 % BASOPHILS 0 % IMMATURE GRANULOCYTES 0 % NEUTROPHIL ABSOLUTE 1.47 (L) 1.90 - 7.00 K/uL LYMPHOCYTE ABSOLUTE 0.78 0.70 - 4.50 K/uL MONOCYTE ABSOLUTE 0.16 0.10 - 1.30 K/uL EOSINOPHIL ABSOLUTE 0.37 0.00 - 0.70 K/uL BASOPHILS ABSOLUTE 0.01 0.00 - 0.20 K/uL IMMATURE GRANULOCYTES ABSOLUTE 0.00 0.00 - 0.03 K/uL BASIC METABOLIC PANEL Result Value Ref Range SODIUM 141 136 - 145 mmol/L POTASSIUM 3.9 3.5 - 5.0 mmol/L CHLORIDE 108 (H) 98 - 107 mmol/L CO2 23 22 - 29 mmol/L CALCIUM 8.7 8.6 - 10.2 mg/dL BUN 6 6 - 20 mg/dL CREATININE 0.83 0.67 - 1.17 mg/dL GLUCOSE 90 74 - 99 mg/dL GFR >60 >=60 mL/min/1.73 sq meter GFR, >60 >=60 mL/min/1.73 sq meter ANION GAP 10 8 - 16 mmol/L VANCOMYCIN LEVEL TROUGH Result Value Ref Range VANCOMYCIN, TROUGH 7.6 (L) 10.0 - 20.0 ug/mL Assessment/Plan of Actively Managed Problems 1. Known diagnosis of HIV-worrisome for possible AIDS given the chronicity and lack of treatment. Now with some skin changes worrisome for Kaposi's sarcoma. Appreciate ID consultation. Will likely need high-dose antiretroviral therapy started. CD4 count and viral load are pending. Consult dermatology Sunday (called today for biopsy and was unable to fit in) if okay with ID. STD work up in progress, RPR + (started ceftriaxone 08/01/19) HSV IGG + and CMV+. Await further rec's from ID. Viral load and CD4 pending. 2. Lower extremity lesions-? Cellulitis changes. continue with IV Vancomycin per ID. Wound care consult CRP level is only 7.2 on admit. 3. Oral thrush-we will start nystatin orally. COntinue with IV Diflucan given toenail infection andmultiple skin lesions. 4. Right lower extremity pain-he reported limping and pain in the right thigh, no evidence of any deformity or denies falls. X ray femur negative for any findings. Will check Hip X ray. 5. Inguinal hernia-noted no evidence of strangulation. Asymptomatic currently. 6. Inguinal lymphadenopathy-tender to palpation. Likely secondary to HIV. Follow-up on ID recommendations. 7. Social issues-patient has no insurance. Case management has been consulted. He has been referredto [facility] clinic as the patient will need ID services as an outpatient. Nutrition: Current Diet and/or Nutritional Supplementation ordered: DIET GENERAL Effective Now DVT Prophylaxis - Enoxaparin Campos catheter:absent Lines: Peripheral IV PT POC OT POC Therapy Plan of Care: 2-5x/wk (08/01/19 1050) Activity Order: Present Activity: in bed;dangled at bedside (08/02/19 8379) Current Code Status -Full Plan discussed with patient, questions answered. Current Planned Disposition - Home early next week? When cleared by ID. Total time spent today was 35 minutes More than 50% of the time spent was for discussion of test results,diagnosis,expected course of thedisease,prognosis,plan of care,DC planning etc. This time may also include time spent for family/nursing conference and for discussion with any consultants. Suly Buchanan MD S ENGRAVER * Rocio Roy, PHARMACIST - 08/02/2019 10:39 AM CST Pharmacy Note: Vancomycin Consult Microbiology 07/31 Blood: No growth x 24 hours 07/31 Nares: MRSA not detected Assessment The patient is currently receiving vancomycin 1000 mg q12h for an indication of LE Wounds/cellulitis. Goal trough of 10-20 mcg/ml. A trough level drawn prior to the 4th dose was 7.6 mcg/ml. EstimatedCreatinine Clearance: 117.2 mL/min (by C-G formula based on SCr of 0.83 mg/dL). Today is day 3 of total therapy. Plan Vancomycin 1000 mg q8h Level due 08/03 at 1030 prior to the 4th dose. PURNIMA Solo 08/02/2019 10:18 AM Cosigned by Eddie Waterman DO at 08/02/2019 6:27 PM GLASS ENGRAVER S ENGRAVER S ENGRAVER * Ngozi Guzman RN - 08/01/2019 7:17 PM CST Shift Summary: Patient denied pain. PO intake adequate. A&Ox4 despite have some cognitive/memory deficits. Wound culture not obtained as no drainage noted. Patient unsteady when ambulating. VSS. S ENGRAVER * Daren Ac MD - 08/01/2019 3:28 PM CST Infectious Diseases Progress Note Date of service: 08/01/2019,3:29 PM Admit Date: 07/31/2019 LOS: 1 day Current antimicrobials/duration: Vancomycin, Rocephin, Fluconazole Subjective-24 hr events: Patient feels better overall. Low grade fever Objective: Patient Vitals for the past 24 hrs: BP Temp Temp src Pulse Resp SpO2 Height Weight 08/01/19 1208 (!) 130/90 98 ??F (36.7 ??C) Oral 73 16 100 % -- -- 08/01/19 0742 115/71 97.8 ??F (36.6 ??C) Oral 76 16 100 % -- -- 08/01/19 0430 125/72 98.7 ??F (37.1 ??C) -- 74 18 99 % -- -- 08/01/19 0200 -- 98.8 ??F (37.1 ??C) -- 78 18 -- -- -- 08/01/19 0000 (!) 148/98 100.7 ??F (38.2 ??C) -- 74 20 100 % -- -- 07/31/19 2200 -- -- -- -- 18 -- -- -- 07/31/192025 133/86 97.9 ??F (36.6 ??C) Oral 88 18 100 % -- -- 07/31/191999 -- -- -- -- 20 -- -- -- 07/31/19 1706 (!) 137/91 99 ??F (37.2 ??C) Oral (!) 102 18 100 % 6' (1.829 m) 60.9 kg (134 lb 4.8 oz) 07/31/19 1630 (!) 153/108 -- -- -- -- -- -- -- Intake/Output Summary (Last 24 hours) at 08/01/2019 1529 Last data filed at 08/01/2019 1212 Gross per 24 hour Intake 3553.72 ml Output 1525 ml Net 2028.72 ml Physical Exam: General Appearance: alert, NAD HEENT: Significant improvement in thrush Heart:RRR Chest: CTA Abdomen: soft Extremities: decreased drainage of left leg, improved erythema/warmth Skin: stable skin lesions Results for orders placed or performed during the hospital encounter of 07/31/19 (from the past 24 hour(s)) URINALYSIS WITH REFLEX MICROSCOPIC Result Value Ref Range COLOR UA Yellow Pale to Dark Yellow CLARITY UA Clear Clear SPECIFIC GRAVITY UA 1.028 1.003 - 1.035 PH UA 6.0 5.0 - 8.0 LEUKOCYTE ESTERASE UA Negative Negative NITRITE UA Negative Negative PROTEIN UA 1+ (A) Negative GLUCOSE UA Negative Negative KETONES UA Trace (A) Negative UROBILINOGEN UA 4.0 (A) <2.0 mg/dL BILIRUBIN UA Negative Negative BLOOD UA Negative Negative WBC UA 0-2 0 - 2 /hpf RBC UA 0-2 0 - 2 /hpf BACTERIA UA Negative Negative /hpf MRSA PCR RAPID SCREEN Result Value Ref Range MRSA PCR RESULT MRSA not detected MRSA not detected HSV TYPE 1 AND 2 IGG ANTIBODY Result Value Ref Range HSV TYPE 1 IGG Positive (A) Negative HSV TYPE 2 IGG Positive (A) Negative RPR Result Value Ref Range RPR Reactive (A) Non-Reactive RPR TITER 1:128 Titer HEPATITIS B SURFACE AB, QUANT Result Value Ref Range HEPATITIS B SURF AB,QN <4.0 mlU/mL HEPATITIS B SURFACE AB INTERP Non-reactive (A) See Interp HEPATITIS B SURFACE ANTIGEN Result Value Ref Range HEPATITIS B SURFACE AG Non-reactive Non-reactive HEPATITIS C ANTIBODY W REFLEX Result Value Ref Range HEPATITIS C AB Non-reactive Non-reactive CBC WITH DIFFERENTIAL Result Value Ref Range WBC 2.8 (L) 4.0 - 9.8 K/uL RBC 3.97 (L) 4.50 - 5.40 M/uL HEMOGLOBIN 10.3 (L) 13.6 - 16.5 g/dL HEMATOCRIT 32.8 (L) 40.0 - 48.0 % MCV 82.6 82.0 - 99.0 fL MCH 25.9 (L) 27.2 - 32.6 pg MCHC 31.4 (L) 31.5 - 35.5 g/dL RDW 14.4 11.5 - 14.5 % RDW-STDEV 43.3 37.1 - 48.7 fL PLATELETS 262 140 - 350 K/uL MPV 10.1 9.3 - 12.4 fL NEUTROPHILS 55 % LYMPHOCYTES 31 % MONOCYTES 5 % EOSINOPHILS 9 % BASOPHILS 0 % IMMATURE GRANULOCYTES 0 % NEUTROPHIL ABSOLUTE 1.51 (L) 1.90 - 7.00 K/uL LYMPHOCYTE ABSOLUTE 0.85 0.70 - 4.50 K/uL MONOCYTE ABSOLUTE 0.13 0.10 - 1.30 K/uL EOSINOPHIL ABSOLUTE 0.25 0.00 - 0.70 K/uL BASOPHILS ABSOLUTE 0.01 0.00 - 0.20 K/uL IMMATURE GRANULOCYTES ABSOLUTE 0.00 0.00 - 0.03 K/uL BASIC METABOLIC PANEL Result Value Ref Range SODIUM 142 136 - 145 mmol/L POTASSIUM 3.7 3.5 - 5.0 mmol/L CHLORIDE 112 (H) 98 - 107 mmol/L CO2 21 (L) 22 - 29 mmol/L CALCIUM 8.5 (L) 8.6 - 10.2 mg/dL BUN 8 6 - 20 mg/dL CREATININE 0.92 0.67 - 1.17 mg/dL GLUCOSE 94 74 - 99 mg/dL GFR >60 >=60 mL/min/1.73 sq meter GFR, >60 >=60 mL/min/1.73 sq meter ANION GAP 9 8 - 16 mmol/L Estimated Creatinine Clearance: 105.7 mL/min (by C-G formula based on SCr of 0.92 mg/dL). Assessment: ?? HIV/AIDS ?? Extensive oral thrush ?? Left leg cellulitis and wound infection ?? Diffuse hyperpigmented skin lesions, may be related to syphilis. 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 Plan: Continue Vancomycin, Diflucan and Nystatin Added Rocephin to treat syphilis To get skin biopsy next week Patient given phone number for [facility] to establish HSI Will follow Daren Ac MD, FACP, [facility] Infectious Diseases Office Pager: [phone] Exchange: [phone] For new consults, please page me directly S ENGRAVER * Suly Buchanan MD - 08/01/2019 11:23 AM CST [facility] Adult Hospitalist Progress Note Admit Date: 07/31/2019 Date of Note: 08/01/2019, 11:23 AM LOS: 1 day Previous history of present illness and review of systems have been reviewed today as documented inthe H&P on 07/31/2019; medications, labs, studies, notes, orders and consults have been reviewed.I have reviewed the notes from admission. Subjective: Resting in bed Feels better Oral thrush is improving Skin lesions are unchanged Discussed lab results with him Objective: BP 115/71 (BP Location: Left arm, Patient Position (BP): Supine) Pulse 76 Temp 97.8 ??F (36.6 ??C) (Oral) Resp 16 Ht 6' (1.829 m) Wt 60.9 kg (134 lb 4.8 oz) SpO2 100% BMI 18.21 kg/m?? Temp (24hrs), Av.8 ??F (37.1 ??C), Min:97.8 ??F (36.6 ??C), Max:100.7 ??F (38.2 ??C) Exam: General: Alert, no distress. Oral thrush Heart: Regular rate and rhythm, S1, S2 normal, no murmur, click, rub or gallop. Lungs: Clear to auscultation bilaterally Abdomen: Soft, non-tender. Bowel sounds times four. No masses, No organomegaly. Extremities: No clubbing, cyanosis or edema Skin: Skin lesions and pigmentation with open areas on the shins. Head: Normocephalic, atraumatic Neck: Supple, symmetrical, trachea midline, no adenopathy. Neuro: CNII-XII intact. Normal strength, sensation and reflexes throughout. Data Base: I have reviewed all new labs and studies resulted Results for orders placed or performed during the hospital encounter of 07/31/19 (from the past 24 hour(s)) URINALYSIS WITH REFLEX MICROSCOPIC Result Value Ref Range COLOR UA Yellow Pale to Dark Yellow CLARITY UA Clear Clear SPECIFIC GRAVITY UA 1.028 1.003 - 1.035 PH UA 6.0 5.0 - 8.0 LEUKOCYTE ESTERASE UA Negative Negative NITRITE UA Negative Negative PROTEIN UA 1+ (A) Negative GLUCOSE UA Negative Negative KETONES UA Trace (A) Negative UROBILINOGEN UA 4.0 (A) <2.0 mg/dL BILIRUBIN UA Negative Negative BLOOD UA Negative Negative WBC UA 0-2 0 - 2 /hpf RBC UA 0-2 0 - 2 /hpf BACTERIA UA Negative Negative /hpf MRSA PCR RAPID SCREEN Result Value Ref Range MRSA PCR RESULT MRSA not detected MRSA not detected HSV TYPE 1 AND 2 IGG ANTIBODY Result Value Ref Range HSV TYPE 1 IGG Positive (A) Negative HSV TYPE 2 IGG Positive (A) Negative RPR Result Value Ref Range RPR Reactive (A) Non-Reactive RPR TITER 1:128 Titer HEPATITIS B SURFACE AB, QUANT Result Value Ref Range HEPATITIS B SURF AB,QN <4.0 mlU/mL HEPATITIS B SURFACE AB INTERP Non-reactive (A) See Interp HEPATITIS B SURFACE ANTIGEN Result Value Ref Range HEPATITIS B SURFACE AG Non-reactive Non-reactive HEPATITIS C ANTIBODY W REFLEX Result Value Ref Range HEPATITIS C AB Non-reactive Non-reactive CBC WITH DIFFERENTIAL Result Value Ref Range WBC 2.8 (L) 4.0 - 9.8 K/uL RBC 3.97 (L) 4.50 - 5.40 M/uL HEMOGLOBIN 10.3 (L) 13.6 - 16.5 g/dL HEMATOCRIT 32.8 (L) 40.0 - 48.0 % MCV 82.6 82.0 - 99.0 fL MCH 25.9 (L) 27.2 - 32.6 pg MCHC 31.4 (L) 31.5 - 35.5 g/dL RDW 14.4 11.5 - 14.5 % RDW-STDEV 43.3 37.1 - 48.7 fL PLATELETS 262 140 - 350 K/uL MPV 10.1 9.3 - 12.4 fL NEUTROPHILS 55 % LYMPHOCYTES 31 % MONOCYTES 5 % EOSINOPHILS 9 % BASOPHILS 0 % IMMATURE GRANULOCYTES 0 % NEUTROPHIL ABSOLUTE 1.51 (L) 1.90 - 7.00 K/uL LYMPHOCYTE ABSOLUTE 0.85 0.70 - 4.50 K/uL MONOCYTE ABSOLUTE 0.13 0.10 - 1.30 K/uL EOSINOPHIL ABSOLUTE 0.25 0.00 - 0.70 K/uL BASOPHILS ABSOLUTE 0.01 0.00 - 0.20 K/uL IMMATURE GRANULOCYTES ABSOLUTE 0.00 0.00 - 0.03 K/uL BASIC METABOLIC PANEL Result Value Ref Range SODIUM 142 136 - 145 mmol/L POTASSIUM 3.7 3.5 - 5.0 mmol/L CHLORIDE 112 (H) 98 - 107 mmol/L CO2 21 (L) 22 - 29 mmol/L CALCIUM 8.5 (L) 8.6 - 10.2 mg/dL BUN 8 6 - 20 mg/dL CREATININE 0.92 0.67 - 1.17 mg/dL GLUCOSE 94 74 - 99 mg/dL GFR >60 >=60 mL/min/1.73 sq meter GFR, >60 >=60 mL/min/1.73 sq meter ANION GAP 9 8 - 16 mmol/L Assessment/Plan of Actively Managed Problems 1. Known diagnosis of HIV-worrisome for possible AIDS given the chronicity and lack of treatment. Now with some skin changes worrisome for Kaposi's sarcoma. Appreciate ID consultation. Will likely need high-dose antiretroviral therapy started. CD4 count and viral load are pending. Consult dermatology Sunday (called today for biopsy and was unable to fit in) if okay with ID. 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 Await further rec's from ID. 2. Lower extremity lesions-? Cellulitis changes. continue with IV Vancomycin per ID. Wound care consult CRP level is only 7.2 on admit. 3. Oral thrush-we will start nystatin orally. COntinue with IV Diflucan given toenail infection andmultiple skin lesions. 4. Right lower extremity pain-he reported limping and pain in the right thigh, no evidence of any deformity or denies falls. X ray hip and femur negative for any findings. 5. Inguinal hernia-noted no evidence of strangulation. Asymptomatic currently. 6. Inguinal lymphadenopathy-tender to palpation. Likely secondary to HIV. Follow-up on ID recommendations. 7. Social issues-patient has no insurance. Case management has been consulted. [facility] has been [facility] as the patient will need ID services as an outpatient. Nutrition: Current Diet and/or Nutritional Supplementation ordered: DIET GENERAL Effective Now DVT Prophylaxis - Enoxaparin Campos catheter:absent Lines: Peripheral IV PT POC OT POC Activity Order: Present Activity: in bed (08/01/19 0742) Current Code Status -Full Plan discussed with patient, questions answered. Current Planned Disposition - Home early next week? When cleared by ID. Total time spent today was 35 minutes More than 50% of the time spent was for discussion of test results,diagnosis,expected course of thedisease,prognosis,plan of care,DC planning etc. This time may also include time spent for family/nursing conference and for discussion with any consultants. Suly Buchanan MD S ENGRAVER S ENGRAVER S ENGRAVER * Ngozi Guzman RN - 08/01/2019 8:35 AM CST ? [facility] Adult IV Flush Protocol [facility] Approved by: [facility] - Medical Executive Committee Approval Date: 05/06/2019 ORDERS ARE ENTERED ???PER PROTOCOL?? Enter the protocol in the patient's electronic health record using [employer] - Financial Reconciliationrase: .adultivflushprotocol NURSING ORDERS Ok to utilize existing central venous access (example: Implanted Port, PICC) unless otherwise directed by provider. (Exclusion: Hemodialysis line may not be accessed without order from provider) Local Anesthetic for IV Initiation Panel (18 and over) ORDER SET Local Anesthetic for use to initiate IV (orders to discontinue 24 hours from initiation) ; Lidocaine 1% 0.3mL intradermal ONE TIME to numb area of IV catheter insertion or port access PRN ; Lidocaine 4% (L.M.X.4) applied topically ONE TIME 15 minutes prior to IV catheter insertion PRN Peripheral IV (Peripheral and Midline catheter) Flush Panel (18 yr and over) ORDER SET ; Line care and maintenance o Sodium chloride 0.9% (normal saline) flush 5 mL every 12 hours when locked o Sodium chloride 0.9% (normal saline) flush 5 mL PRN before and after medication administration orto verify line patency ; Carrier fluid (select most appropriate fluid for capability with medications) o Sodium chloride 0.9% (normal saline) 250 mL carrier bag. - Infuse 25 mL at a rate of IVPB administration to flush as needed to complete the IVPB and/or may keep rate at KVO (10mL/hr) to minimize frequent line interruption. o Dextrose 5% (D5W) 250 mL carrier bag - Infuse 25 mL at a rate of IVPB administration to flush as needed to complete the IVPB and/or may keep rate at KVO (10mL/hr) to minimize frequent line interruption. Central Lines (PICC, CVC, Implanted Port, Sheath/Introducer, 3rd lumen of Hemodialysis catheter) Flush Panel (18 yr and over) ORDER SET ; Line care and maintenance o Sodium chloride 0.9% (normal saline) flush 10mL per lumen AND Heparin 10 units/mL 5mL per lumen every 12 hours o Sodium chloride 0.9% (normal saline) flush 10mL per lumen before and after medication administration or to verify line patency AND Heparin 10 units/mL 5 mL per lumen to lock. ; Carrier fluid (select most appropriate fluid for capability with medications) o Sodium chloride 0.9% (normal saline) 250 mL carrier bag. - Infuse 25 mL at a rate of IVPB administration to flush as needed to complete the IVPB and/or may keep rate at KVO (10mL/hr) to minimize frequent line interruption. o Dextrose 5% (D5W) 250 mL carrier bag: carrier bag - Infuse 25 mL at a rate of IVPB administration to flush as needed to complete the IVPB and/or may keep rate at KVO (10mL/hr) to minimize frequent line interruption. Transducers- Hemodynamic Pressure Monitoring ??? Arterial Catheter, Pulmonary Artery Catheter, Central Venous Pressure, Intra-Aortic Balloon Pump Sodium chloride 0.9% (normal saline) to infuse continuously at 3mL/hr via pressure bag at 300 mmHgIntra-Aortic Balloon Pump ??? Heparin 2 unit/mL in normal saline to infuse continuously at 3 mL/hr via pressure bag at 300mmHg For Occluded Central Line (Adult ONCOLOGY only) ??? Alteplase (CATHFLO) Instill 2mg to affected lumen(s) to dwell in occluded lumen one time. S ENGRAVER * Thad Upton MD - 07/31/2019 7:58 PM CST [facility] HOSPITALIST NOTE 07/31/19 7:58 PM Problem: Patient complaining of severe itching. Scratching so bad he's breaking the skin. Already lotioned up. Itching is all over Vitals: 07/31/19 0939 07/31/19 1400 07/31/19 1630 07/31/19 1706 Temp: 99.7 ??F (37.6 ??C) 99 ??F (37.2 ??C) Pulse: (!) 114 (!) 102 Heart Rate: 114 bpm BP: (!) 141/95 127/86 (!) 153/108 (!) 137/91 Mean Arterial Pressure: 96 MM HG 119 MM HG 101 MM HG Resp: 16 18 SpO2: 100% 100% Intervention/Follow up/Discussion: 23yo with HIV admitted with skin changes. Having generalized itching. Will add prn oral benadryl. Thad Upton MD Submit an eTicket S ENGRAVER * Kaylynn Moreno RN - 07/31/2019 6:22 PM CST Pt reports having urinary urgency. However; with each urinary attempt, severe hesitancy. Unable to void. notified. S ENGRAVER * Kaylynn Moreno RN - 07/31/2019 5:53 PM CST Undress and Assess performed by the following two coworkers: Kaylynn RUSH and Salma PCT Admission or upon transfer to:[facility] ~~~~~~~~~~~~~~~~~~~~~~~~~~~~ Is the patient a paraplegic/quadriplegic? No Does the patient have new purple/malu/dark red over bony prominences? No Does the patient have an ostomy? No Is the length of stay >2 weeks? No ~If ANY answer 'yes'- please consult Wound Care~ Patient DOES have skin breakdown. Location/ Description of breakdown: Open scab areas to LLE Wound care consult was initiated. Is there skin breakdown under any Molder Bench (splint, ETT lopez, c-collar)? No If yes, please describe:NA Are there currently any skin protective dressing in place? No If yes, please describe skin under dressing: Protective Dressings Applied to Sacrum and Heels (Mepilex) as per Pathway? Refused Patient arrived to this room with the following belongings/valuables:glasses, cell phone, labor delivery rn, farah blanket, bag of clothing Patient arrived to this room with the following medical equipment/devices None. All Jewelry removed from patient NA Disposition of belongings/valuables: S ENGRAVER * Kaylynn Moreno RN - 07/31/2019 5:01 PM CST Phil is A&O x 4. Arrived to room by stretcher. Ambulated to bed with SB assist. Oriented pt to room. Verbalized understanding. Pt c/o 10/10 back, right hip/groin pain radiating down leg,with numbness and tingling to right foot. Pt has scabs to bilateral LE's with open areas to left leg chin from scratching. Has a hernia-like lump to right groin area, enlarged scrotum, severe dryness to penis and groin area. Reports sore throat ongoing intermittently for past year. Reports excessive diarrhea x 1 week ago. Last BM on yesterday, formed stool. Denies fever, denies chills. Afebrile; VSS. Pt reports he was diagnosed with HIV at a clinic through [facility] in July of 2017, reports he has no PCP and takes no home medications. Denies being sexually active at this time. S ENGRAVER documented in this encounter H&P Notes * Suly Buchanan MD - 07/31/2019 3:09 PM CST Images from the original note were not included. [facility] Adult Hospitalist Admission H & P Patient Name: Phil Chase Primary Care Doctor: No primary care provider on file. Date of Admission: 07/31/2019 Date of Service: 07/31/2019 Chief Complaint: Lower extremity pigmentation, skin breakdown, toenail infections, general body aches and pains, limping on the right side, oral thrush, dysphagia HPI: Patient is a 23 y.o. male presenting with multiple complaints to the emergency department today. Patient has a past medical history significant for previous diagnosis of HIV in July 2017. Patient reports that he has never seek any medical attention due to lack of insurance. He reports having good appetite and no weight loss however he noticed some skin changes that have been going on for several months now. His lower extremities and upper extremities as well as back have multiple pigmented areas. Lower extremity pigmentations have scraped off and the skin is breaking down with some bleeding issues recently. He also reports thick toenails and fingernails and is worried that he may have an infection. Also has significant oral thrush. He reports difficulty with swallowing at times. Reports cough with the occasional bloody sputum. He also reported occasional diarrhea. Patient symptoms are very nonspecific. He reports not being sexually active since diagnosis of HIV. He denies any chestpain or shortness of breath. Reported lump in the left inguinal area and inguinal hernia as well. Denies any dysuria or diarrhea. Denies any dizziness or falls. Initial evaluation revealed a positiverapid HIV screen. He is being admitted for further evaluation and management. Discussed with ER physician Dr Sams. Infectious disease has been consulted by ER. Reviewed home medications-[facility]. Past Medical History: Past Medical History: Diagnosis Date ??? History of HIV infection Past Surgical History: Past Surgical History: Procedure Laterality Date ??? PT DENIES RELEVANT SURGICAL HISTORY Current Medications: Prior to Admission Medications Prescriptions Last Dose Informant Patient Reported? Taking? ibuprofen (MOTRIN) 200 mg tablet Past Week at Unknown time Yes Yes Sig: Take 200 mg by mouth every 6 hours as needed for Pain, Mild. Facility-Administered Medications: None Medication Allergies: No Known Allergies Family History: Family History Problem Relation Name Age of Onset ??? Healthy Father ??? Healthy Mother ??? Healthy Sister ??? Healthy Brother ??? Diabetes Maternal Grandmother ??? Diabetes Maternal Grandfather Social History: Social History Tobacco Use ??? Smoking status: Never Smoker ??? Smokeless tobacco: Never Used Substance Use Topics ??? Alcohol use: Never Frequency: Never Review of Systems: Gen: No fever or chills Eyes: No visual changes Ears: No change in hearing Endocrine: No heat or cold intolerance Pulm: Occasional cough and hemptysis Cardiac: No chest pain or orthopnea GI: Occasional diarrhea : No hematuria, urgency or frequency Musculoskeletal: Limp on the R side, R leg pain Neuro: No numbness or tingling Psych: No anxiety or depression Skin: Multiple pigmented lesions on arms,legs and back, open wounds of the legs. All other ROS reviewed and are negative Physical Exam: Patient Vitals for the past 8 hrs: BP Temp Temp src Pulse Resp SpO2 Height Weight 07/31/19 0939 (!) 141/95 99.7 ??F (37.6 ??C) Oral (!) 114 16 100 % 6' (1.829 m) 61.2 kg (135 lb) General: Alert, no distress. Oral thrush+ Heart: Regular rate and rhythm, S1, S2 normal, systolic murmur, no click, rub or gallop. Lungs: Clear to auscultation bilaterally, No rhonchi, rubs or rhales Abdomen: Soft, non-tender. Bowel sounds times four. No masses, No organomegaly. Extremities: Skin: See above, pigmeneted lesions Head: Normocephalic, atraumatic Neck: Supple, symmetrical, trachea midline, no adenopathy. Neuro: CNII-XII intact. Normal strength, sensation and reflexes throughout. Data Base: Lab: Results for orders placed or performed during the hospital encounter of 07/31/19 (from the past 24 hour(s)) RAPID STREP SCREEN WITH REFLEX CULTURE Result Value Ref Range RAPID STREP Negative Negative POC GLUCOSE Result Value Ref Range POC GLUCOSE 71 (L) 74 - 99 mg/dL COMMENT, GLU POC Notified RN/MD COMMENT 2, GLU POC Repeated Glucose COMMERCIAL CREDIT ANALYST NAME SILVIA CHURCH CBC WITH DIFFERENTIAL Result Value Ref Range WBC 5.9 4.0 - 9.8 K/uL RBC 4.54 4.50 - 5.40 M/uL HEMOGLOBIN 11.9 (L) 13.6 - 16.5 g/dL HEMATOCRIT 37.3 (L) 40.0 - 48.0 % MCV 82.2 82.0 - 99.0 fL MCH 26.2 (L) 27.2 - 32.6 pg MCHC 31.9 31.5 - 35.5 g/dL RDW 14.6 (H) 11.5 - 14.5 % RDW-STDEV 42.9 37.1 - 48.7 fL PLATELETS 289 140 - 350 K/uL MPV 9.5 9.3 - 12.4 fL COMPREHENSIVE METABOLIC PANEL Result Value Ref Range SODIUM 142 136 - 145 mmol/L POTASSIUM 3.8 3.5 - 5.0 mmol/L CHLORIDE 102 98 - 107 mmol/L CO2 26 22 - 29 mmol/L CALCIUM 9.4 8.6 - 10.2 mg/dL BUN 10 6 - 20 mg/dL CREATININE 0.93 0.67 - 1.17 mg/dL GLUCOSE 88 74 - 99 mg/dL TOTAL PROTEIN 9.5 (H) 6.7 - 8.6 g/dL ALBUMIN 4.0 3.5 - 5.2 g/dL BILIRUBIN TOTAL 0.2 (L) 0.3 - 1.2 mg/dL ALKALINE PHOSPHATASE 65 40 - 129 U/L AST 20 <41 U/L ALT 13 <42 U/L GFR >60 >=60 mL/min/1.73 sq meter GFR, >60 >=60 mL/min/1.73 sq meter ANION GAP 14 8 - 16 mmol/L C-REACTIVE PROTEIN Result Value Ref Range CRP 7.2 (H) <5.0 mg/L PROTIME-INR Result Value Ref Range PROTIME 13.4 12.7 - 15.1 Seconds INR 1.0 0.9 - 1.1 HIV DETECTION W/REFLX CONFIRMATION Result Value Ref Range HIV-1 AND 2 ABS AND HIV-1 AG Reactive (A) Non-reactive HEMOGLOBIN A1C Result Value Ref Range HEMOGLOBIN A1C 5.2 <5.7 % EST. AVG GLUCOSE, A1C 103 mg/dL MANUAL DIFFERENTIAL Result Value Ref Range SEGMENTED NEUTROPHILS 86 % LYMPHOCYTES RELATIVE 3 % MONOCYTES RELATIVE 4 % EOSINOPHILS RELATIVE 8 % NEUTROPHILS ABSOLUTE COUNT 5.05 1.90 - 7.00 K/uL LYMPHOCYTES ABSOLUTE 0.16 (L) 0.70 - 4.50 K/uL MONOCYTES ABSOLUTE 0.21 0.10 - 1.30 K/uL EOSINOPHILS ABSOLUTE 0.48 0.00 - 0.70 K/uL TOTAL CELLS COUNTED IN DIFF 111 RBC MORPHOLOGY abnormal PLATELET EST. Consistent w Count ANISOCYTOSIS 1+ /hpf POIKILOCYTES 1+ /hpf POLYCHROMASIA 1+ /hpf OVALOCYTES 1+ /hpf POC RAPID HIV Result Value Ref Range RAPID HIV SCREEN Reactive (A) Non-Reactive COMMERCIAL CREDIT ANALYST NAME SILVIA CHURCH POC LACTIC ACID Result Value Ref Range POC LACTATE 0.5 <=2.0 mmol/L COMMENT, GASES POC RN/MD NOTIFIED SPECIMEN SOURCE, GASES BLNK COMMERCIAL CREDIT ANALYST NAME ALEXANDER MCNEIL Chest X ray personally reviewed: No evidence of pneumonia Assessment and Plan: 1. Known diagnosis of HIV-worrisome for possible AIDS given the chronicity and lack of treatment. Now have some skin changes worrisome for Kaposi's sarcoma. Appreciate ID consultation. Will likely need high-dose antiretroviral therapy started. CD4 count and viral load are pending. Check hepatitis panel. 2. Lower extremity lesions-? Cellulitis changes. Will start with IV Zosyn. Wound care consult requested. Appreciate ID consult. CRP level is only 7.2 which goes against to florid infection. 3. Oral thrush-we will start nystatin orally. Also start with IV Diflucan given toenail infection and multiple skin lesions. 4. Right lower extremity pain-he reported limping and pain in the right thigh, no evidence of any deformity or denies falls. Will check x-ray of the hip and femur. 5. Inguinal hernia-noted no evidence of strangulation. Asymptomatic currently. 6. Inguinal lymphadenopathy-tender to palpation. Likely secondary to HIV. Follow-up on ID recommendations. 7. Social issues-patient has no insurance. Case management has been consulted. He has been [facility] clinic as the patient will need ID services as an outpatient. 8. DVT Prophylaxis Enoxaparin 9. GI Prophylaxis: None 10. Code status Full 11. Disposition: Home when symptoms improve, TBD Total time today spent was 70 minutes. The above plan of care was discussed in detail by myself with the patient and all his questions were answered to his satisfaction. He is agreeable with the above plan. Suly Buchanan MD S ENGRAVER documented in this encounter Consult Notes * Daren Ac MD - 07/31/2019 9:41 PM CSTAssociated Order(s): IP CONSULT TO INFECTIOUS DISEASES INFECTIOUS DISEASES CONSULTATION NOTE Reason for consultation: HIV Referring Service/Physician: ER Date of service: 07/31/2019 Subjective Patient is a 23 y.o. male admitted on 07/31/2019 with severe rash and skin lesions. For several months, patient has had severe rash but he has managed to eat and drink and maintain his weight. He has also had skin lesions all over with ulceration and drainage on the left mc and a painful swollen lymph node in the left groin. He also has reported some stiffness in the right hip. Of note patient was diagnosed with HIV/AIDS in July 2017 at [facility]. At that time his CD4 count was 64 and his viral load was 74,000. He had negative hepatitis B and hepatitis C screening. His RPR wassignificantly elevated and his toxoplasma IgG was negative. Patient did not receive treatment for his syphilis nor has he followed up for his HIV care. Here he has low-grade fever. Active Problems: Symptomatic HIV infection Skin lesion of lower extremity Oral thrush Oropharyngeal dysphagia Pain of right lower extremity Past Medical History: Diagnosis Date ??? History of HIV infection Past Surgical History: Procedure Laterality Date ??? PT DENIES RELEVANT SURGICAL HISTORY Current Facility-Administered Medications Ordered in [facility] Medication Dose Route Frequency Provider Last Rate Last Dose ??? ibuprofen (MOTRIN) tablet 600 mg 600 mg Oral q 6 hour PRN Suly Buchanan MD ??? naloxone (NARCAN) 0.4 mg/mL injection 0.1 mg 0.1 mg IV See Admin Notes Suly Buchanan MD ??? sodium chloride 0.9% infusion IV Continuous Suly Buchanan MD 100 mL/hr at 07/31/192120 ??? acetaminophen (TYLENOL) tablet 650 mg 650 mg Oral q 6 hour PRN Suly Buchanan MD ??? HYDROcodone-acetaminophen (NORCO) 5-325 mg per tablet 1 Tablet 1 Tablet Oral q 4 hour PRN Suly Buchanan MD 1 Tablet at 07/31/191805 ??? ondansetron (ZOFRAN) 4 mg/2 mL injection 4 mg 4 mg IV q 6 hour PRN Suly Buchanan MD ??? enoxaparin (LOVENOX) injection 40 mg 40 mg subCUT q 24 hour Suly Buchanan MD 40 mg at 07/31/192117 ??? nystatin (MYCOSTATIN) 100,000 unit/mL suspension 1,000,000 Units 1,000,000 Units Oral QID Suly Buchanan MD 1,000,000 Units at 07/31/192125 ??? VANCOMYCIN CONSULT TO PHARMACY 1 Each See Admin Instructions See Admin Notes Daren Ac MD ??? fluconazole (DIFLUCAN) 200 mg in 100 mL sodium chloride (iso-osmotic) IVPB 200 mg IV ONCE Daren Ac MD 100 mL/hr at 07/31/192129 200 mg at 07/31/192129 ??? [START ON 08/01/2019] fluconazole (DIFLUCAN) 200 mg in 100 mL sodium chloride (iso-osmotic) [id number] mg IV q 24 hour (daily) Daren Ac MD ??? [START ON 08/01/2019] vancomycin (VANCOCIN) 1,000 mg in dextrose 5% 200 mL IVPB (PREMIX) 15 mg/kg IV q 12 hour Daren Ac MD ??? diphenhydrAMINE (BENADRYL) tablet 25 mg 25 mg Oral q 6 hour PRN Thad Upton MD 25 mg at 07/31/198 No Known Allergies Social History Tobacco Use [...] immunization history on file for this patient. Review of Systems Constitutional: fevers Eye: denies cataracts, glaucoma, visual disturbance, irritation, color issues Ear, Nose, Mouth, Throat: denies hearing loss, tinnitus, ear issues, nasal congestion, epistaxis, snoring, neck mass, oral issues, hoarse voice Respiratory: denies cough, dyspnea, hemoptysis, stridor, wheeze, chest pain Cardiovascular: denies chest pain or discomfort, exertional chest pressure/discomfort, fatigue, pounding heart/chest, nausea, syncope, shortness of breath Gastrointestinal: denies abdominal pain, change in bowel habits, constipation, diarrhea, dyspepsia,dsyphagia, hematochezia, reflux symptoms, vomiting Genitourinary: denies dysuria, frequency, hematuria, hesitancy, nocturia, urinary incontinence Integementary, Breast: pruritus and skin lesion(s) Hematologic, Oncologic, Lymphatic: denies: bruising, bleeding, lymphadenopathy, petechiae Musculoskeletal: stiff joints Neurological: denies blurry or disturbed vision, gait problems, dizziness, difficulty swallowing, muscle weakness, difficulty saying words Behavior, Psychologic: denies aggressive or problematic behavior, anxiety, mood issues, substance use, learning difficulty, unusual fears Objective Patient Vitals for the past 8 hrs: BP Temp Temp src Pulse Resp SpO2 Height Weight 07/31/19 2026 133/86 97.9 ??F (36.6 ??C) Oral 88 18 100 % -- -- 07/31/19 1706 (!) 137/91 99 ??F (37.2 ??C) Oral (!) 102 18 100 % 6' (1.829 m) 60.9 kg (134 lb 4.8 oz) 07/31/19 1630 (!) 153/108 -- -- -- -- -- -- -- 07/31/19 1400 127/86 -- -- -- -- -- -- -- Intake/Output Summary (Last 24 hours) at 07/31/2019 2141 Last data filed at 07/31/2019 1852 Gross per 24 hour Intake 1600 ml Output 100 ml Net 1500 ml Estimated Creatinine Clearance: 104.6 mL/min (by C-G formula based on SCr of 0.93 mg/dL). General Appearance: Alert, pleasant, no distress HEENT: No icterus, extensive oral thrush Neck: Supple Heart: Regular rate and rhythm, soft systolic ejection murmur Chest: Clear to auscultation bilaterally Abdomen: Soft, nontender, no hepatosplenomegaly Extremities: The left mc has ulcerated skin lesions with a small amount of purulent discharge andsurrounding erythema and warmth with tenderness. There is a swollen tender left inguinal lymph node. Musculoskeletal: No joint effusions Skin: Diffuse hyperpigmented macules and patches, some other lesions have more of vascular fleshy appearance All labs, imaging and notes from this admission have been reviewed, in addition to pertinent labs, imaging, and notes from prior admissions and hospital visits. Assessment ?? HIV/AIDS ?? Extensive oral thrush ?? Left leg cellulitis and wound infection ?? Diffuse hyperpigmented skin lesions, may be related to syphilis. 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 Plan ?? I have ordered a complete work-up for his HIV and an STD screen ?? I ordered a wound culture from the left leg and an MRSA screening test ?? We will treat the left leg infection with vancomycin for the time being ?? We will treat thrush with IV fluconazole and oral nystatin suspension ?? Please arrange for patient to have a biopsy of the skin lesions to rule out Kaposi's sarcoma Thank you for the consultation, Daren Ac MD, FACP, [facility] Infectious Diseases Office Pager: [phone] Exchange: [phone] For new consults, please page me directly S ENGRAVER documented in this encounter ED Notes * Prosper Pepper RN - 07/31/2019 4:05 PM CST Pt is resting comfortably at this time. No complaints. Pt VSS are stable. NAD noted. Pt updated on POC at this time. Pt has no further questions at this time. S ENGRAVER * Prosper Pepper RN - 07/31/2019 4:04 PM CST Notified floor of admission and ready room. Med surg charge nurse did not answer phone. S ENGRAVER * Prosper Pepper RN - 07/31/2019 2:00 PM CST Pt is resting comfortably at this time. No complaints. Pt VSS are stable. NAD noted. Pt updated on POC at this time. Pt has no further questions at this time. S ENGRAVER * Prosper Pepper RN - 07/31/2019 10:36 AM CST Pt admitted to ED . Assessment complete. Chief Complaint Patient presents with ??? Groin Pain swollen lymp node in his left groin, and stiffness to the right hip causing him to limp. pt also c/o intermittent sore throats x6 months -1 year. +full body shooting pains pt requests to be tested for DM because he has tingling to his feet, his hands a wrinkled, and his fingernails are yellow. recent DX of HIV Agree with triage note. S ENGRAVER * Jessa Sams MD - 07/31/2019 9:34 AM CST HISTORY OF PRESENT ILLNESS Phil Chase, a 23 y.o. male presents to the ED with a Chief Complaint of Groin Pain Subjective Documented Triage Chief Complaint: Groin pain 10:05 AM: Phil Chase is a 23 y.o. male with a history of HIV, who presents to the Emergency Department via friend's car with complaints of Hyperpigmentation to the bilateral feet. The pt believes that he may have diabetes due to his bilateral feet hyperpigmentation and finger/toe nails turning yellow. The pt reports that both grandparents have a hx of DM. He also complains of white plaque in his mouth, fatigue and urinary frequency. He denies any dysuria or fever. The pt was recently Dx with HIV this month at a [place] clinic which was sexually transmitted. He also notes diarrhea for the past 2 months. Physician(s): No primary care provider on file. History provided by: The patient Arrived by: Other REVIEW OF SYSTEMS Review of Systems Constitutional: Positive for fatigue and unexpected weight change. Negative for fever. HENT: Negative for sore throat. +white plaque inside mouth Respiratory: Negative for cough, chest tightness and shortness of breath. Cardiovascular: Negative for chest pain. Gastrointestinal: Positive for diarrhea. Negative for abdominal pain, nausea and vomiting. Endocrine: Positive for polyuria. Genitourinary: Positive for frequency. Negative for discharge, dysuria and scrotal swelling. Musculoskeletal: Negative for back pain and neck pain. Skin: Positive for color change (dark color to bilateral feet) and wound. +nail yellowing Neurological: Negative for dizziness and headaches. All other systems reviewed and are negative. [...] Not on file PROBLEM LIST: Patient has AIDS; Skin lesion of lower extremity; Oral thrush; Oropharyngeal dysphagia; Pain of right lower extremity; Cellulitis and abscess of leg; Skin lesions, generalized; History of syphilis; and Syphilis on their problem list. ALLERGIES Patient has no known allergies. HOME MEDICATIONS Current Discharge Medication List CONTINUE these medications which have NOT CHANGED Details ibuprofen (MOTRIN) 200 mg tablet Take 200 mg by mouth every 6 hours as needed for Pain, Mild. Objective PHYSICAL EXAM INITIAL VS BP: (!) 141/95 (07/31/19938), Heart Rate: 114 bpm (07/31/19938), Resp: 16 (07/31/19938), Pulse: (!) 114 (07/31/19938), Temp: 99.7 ??F (37.6 ??C) (07/31/19938), Temp src: Oral (07/31/19938), SpO2: 100 % (07/31/19938), Height: 6' (182.9 cm) (07/31/19938), Weight: 61.2 kg (135 lb) (07/31/19938), BMI (Calculated): 18.31 (07/31/19938) No LMP for male patient. Physical Exam Vitals signs and nursing note reviewed. Constitutional: Appearance: He is ill-appearing. Comments: cacahetic HENT: Head: Normocephalic and atraumatic. Comments: Pharyngeal erythema Mouth/Throat: Comments: white plaque on the roof of mouth and posterior pharynx Eyes: Pupils: Pupils are equal, round, and reactive to light. Neck: Musculoskeletal: No spinous process tenderness. Vascular: No JVD. Trachea: No tracheal deviation. Cardiovascular: Rate and Rhythm: Tachycardia present. Heart sounds: No murmur. Pulmonary: Effort: No respiratory distress. Breath sounds: Rales present. No wheezing. Chest: Chest wall: No tenderness. Abdominal: Palpations: Abdomen is soft. There is no mass. Tenderness: There is no abdominal tenderness. Musculoskeletal: Normal range of motion. General: No tenderness. Skin: General: Skin is warm and dry. Findings: No rash. Comments: Dry brittle nails with multiple areas of hyperpigmentation present. Neurological: Mental Status: He is alert and oriented to person, place, and time. Cranial Nerves: No cranial nerve deficit. Psychiatric: Behavior: Behavior normal. DIAGNOSTICS LAB: CBC WITH DIFFERENTIAL - Abnormal Result Value WBC 5.9 RBC 4.54 HEMOGLOBIN 11.9 (*) HEMATOCRIT 37.3 (*) MCV 82.2 MCH 26.2 (*) MCHC 31.9 RDW 14.6 (*) RDW-STDEV 42.9 PLATELETS 289 MPV 9.5 COMPREHENSIVE METABOLIC PANEL - Abnormal SODIUM 142 POTASSIUM 3.8 CHLORIDE 102 CO2 26 CALCIUM 9.4 BUN 10 CREATININE 0.93 GLUCOSE 88 TOTAL PROTEIN 9.5 (*) ALBUMIN 4.0 BILIRUBIN TOTAL 0.2 (*) ALKALINE PHOSPHATASE 65 AST 20 ALT 13 GFR >60 GFR, >60 ANION GAP 14 C-REACTIVE PROTEIN - Abnormal CRP 7.2 (*) HIV DETECTION W/REFLX CONFIRMATION - Abnormal HIV-1 AND 2 ABS AND HIV-1 AG Reactive (*) MANUAL DIFFERENTIAL - Abnormal SEGMENTED NEUTROPHILS 86 LYMPHOCYTES RELATIVE 3 MONOCYTES RELATIVE 4 EOSINOPHILS RELATIVE 8 NEUTROPHILS ABSOLUTE COUNT 5.05 LYMPHOCYTES ABSOLUTE 0.16 (*) MONOCYTES ABSOLUTE 0.21 EOSINOPHILS ABSOLUTE 0.48 TOTAL CELLS COUNTED IN DIFF 111 RBC MORPHOLOGY abnormal PLATELET EST. Consistent w Count ANISOCYTOSIS 1+ POIKILOCYTES 1+ POLYCHROMASIA 1+ OVALOCYTES 1+ POC GLUCOSE - Abnormal POC GLUCOSE 71 (*) COMMENT, GLU POC Notified RN/MD COMMENT 2, GLU POC Repeated Glucose COMMERCIAL CREDIT ANALYST NAME SILVIA CHURCH POC RAPID HIV - Abnormal RAPID HIV SCREEN Reactive (*) COMMERCIAL CREDIT ANALYST NAME SILVIA CHURCH RAPID STREP SCREEN WITH REFLEX CULTURE - Normal RAPID STREP Negative PROTIME-INR - Normal PROTIME 13.4 INR 1.0 STREPTOCOCCUS GROUP A CULTURE WOUND (AEROBIC) CULTURE WITH GRAM STAIN HEMOGLOBIN A1C HEMOGLOBIN A1C 5.2 EST. AVG GLUCOSE, A1C 103 CD4 COUNT AND T4T8 RATIO HIV 1/HIV 2 AB DIFFERENTIATION HIV 1 GENOTYPE QUANTIFERON TB GOLD CMV IGG TOXOPLASMOSIS AB IGG/IGM HEPATITIS A IGG POC GLUCOSE POC LACTIC ACID POC LACTATE 0.5 COMMENT, GASES POC RN/MD NOTIFIED SPECIMEN SOURCE, GASES BLNK COMMERCIAL CREDIT ANALYST NAME ALEXANDER MCNEIL POC GLUCOSE POC GLUCOSE 82 COMMERCIAL CREDIT ANALYST NAME ROLA RAMOS RADIOLOGY: XR FEMUR 2 VW RIGHT Radiologist Impression IMPRESSION: No acute osseous injury. DICTATION LOCATION: Location 3 - [facility] XR CHEST PA AND LATERAL 2 VW Radiologist Impression IMPRESSION: No active pulmonary disease. DICTATION LOCATION: Location 1 - [facility] XR FEMUR 2 VW RIGHT XR CHEST PA AND LATERAL 2 VW PROCEDURES Procedures MEDICAL DECISION MAKING AND PLAN OF CARE ---On initial evaluation, informed patient of plan to do labs and XR. 12:21 PM I D/w Dr. Ac (infectious diease) at this time. He recommends admittance. 12:30 PM: Discussed the patient's medical history, history of present illness, and current findingswith Dr. Buchanan 12:38 PM: Updated patient on results, diagnosis, and plan for admission. Patient agrees with the plan. The opportunity for questions was given and questions were answered to the patient's satisfaction. All questions and concerns have been addressed. ED provider and ED nurse verbally discussed patient plan of care at this time. MDM Summary Statement: The pt presented to the ED with a chief complaint of hyperpigmentation to extremities onset gradual, with associated fatigue, urinary freuqnecy. Labs revealed HIV infection.The radiology performed, including XR , was unremarkable. I discussed the case with [facility] Hospitalist, who agrees with admission to medical floor under the care of Dr. Buchanan. The pt is being admitted for HIV treatment planning, as well as further diagnostic evaluation and management. I have reviewed previous: notes and labs I have reviewed current: labs and imaging I have reviewed nursing notes related to past medical history, social history, and review of systems and agree, unless otherwise noted. Consults: hospitalist and other (ID) Medications Administered During the ED Stay from 07/31/2019 0934 to 07/31/2019 1646 Date/Time Order Dose Route Action 07/31/2019 1156 sodium chloride 0.9% bolus solution 1,000 mL 0 mL IV Stopped 07/31/2019 1118 sodium chloride 0.9% bolus solution 1,000 mL 1,000 mL IV New Bag Current Discharge Medication List CONTINUE these medications which have NOT CHANGED Details ibuprofen (MOTRIN) 200 mg tablet Take 200 mg by mouth every 6 hours as needed for Pain, Mild. LAST VS BP: (!) 145/96 (08/01/191616), Heart Rate: 69 bpm (08/01/191616), Resp: 16 (08/01/191616), Pulse: 69 (08/01/191616), Temp: 98.2 ??F (36.8 ??C) (08/01/191616), Temp src: Oral (08/01/191616), SpO2: 100 % (08/01/191616) CLINICAL IMPRESSION Final diagnoses: [B20] HIV infection, unspecified symptom status (Primary) [B37.0] Oral thrush [R13.12] Oropharyngeal dysphagia [L03.119, L02.419] Cellulitis and abscess of leg [L98.9] Skin lesions, generalized [Z86.19] History of syphilis DISPOSITION, EDUCATION AND MEDICATION RECONCILIATION Medications reconciled. See after visit summary for patient education on discharged patients. ED Disposition ED Disposition Condition User Date/Time Comment Admit Stable Jessa Sams MD [facility] Jul 31, 2019 12:30 PM ATTESTATION STATEMENTS This note has been prepared by Tabitha Mcallister and Tarsha Patel acting as a scribe for Dr. Jessa Sams on 07/31/2019 at 12:40 PM. The scribe's documentation has been prepared under my direction and personally reviewed by me, MD Avinash , in its entirety on 08/01/19 at 7:02 PM. I confirm that the note above accurately reflects all work, treatment, procedures, and medical decision making performed by me. Diagnoses Diagnosis Comment Added By Time Added HIV infection, unspecified symptom status [B20] Jessa Sams MD 07/31/2019 10:47 AM Oral thrush [B37.0] Jessa Sams MD 08/01/2019 7:02 PM Oropharyngeal dysphagia [R13.12] Jessa Sams MD 08/01/2019 7:02 PM Cellulitis and abscess of leg [L03.119, L02.419] Jessa Sams MD 08/01/2019 7:02 PM Skin lesions, generalized [L98.9] Jessa Sams MD 08/01/2019 7:02 PM History of syphilis [Z86.19] Jessa Sams MD 08/01/2019 7:02 PM S ENGRAVER documented in this encounter Miscellaneous Notes * Care Plan - Silvia Ortiz - 08/06/2019 4:46 PM CST Patient was medically accepted at [facility]. Full acceptance into clinic dependent on meeting income guidelines. Patient has the following appointment scheduled: August 15 at 10:[address] Hughes. Patient is also scheduled to meet with Leonor Mckinley at 9:45 AM to review financial paperwork and [facility] clinic guidelines. Silvia Ortiz, POLICE [employer] Community Flow Specialist [phone] S ENGRAVER * Therapy Evaluation - Michelle Hanson, Physical Therapist - 08/04/2019 9:55 AM CST Physical Therapy order received, chart reviewed, and evaluation completed. Please see full evaluation below for details. Daily PT notes will be located in Care Plan notes. Thank You. PT INITIAL EVALUATION Diagnosis: Symptomatic HIV infection Ordering Provider: Dewayne Activity Order: Ambulate with assist, activity as tolerated Weight Bearing Status: No restrictions listed Precautions: Fall, HIV PMH/PSH: Past Medical History: Diagnosis Date ??? History of HIV infection Patient appropriate for PT session per activity orders and RN (via in-person conversation). S: The patient reports 0/10 pain at rest and 0/10 pain during activity. The patient consents to participation in therapy at this time. The patient plans to d/c very soon due to in family. Pain Intervention: Unneccessary movement avoided Response to Pain Intervention: Verbalized no change in pain, Agrees to continue Living Situation/Functional Level STORE CASHIER: Patient resides in 1-story home but lives in basement with 10 steps (1 handrail) to reach bedroom and 1 [address] home. He lives with his grandfather who very recently and rooming situation is TBD. Patient utilized no AD for mobility STORE CASHIER. Patient was independent with ADL's. He states he makes it work when asked about walking with furniture/jaimes. O: Appearance/Equipment at Initiation of Session: Seated EOB with PCT present Cognition/Communication: A and O x4 Skin Integrity: No impairments observed Strength: Bilateral LE decreased - especially 2/5 Right ankle dorsiflexion, 4-/5 global remaining ROM: Bilateral Upper Extremity WFL, Lower Extremity WFL Sensation: Light touch -- intact in BLE Transfers: Sit <-> stand = SBA with UE support or min A for stability without UE support Balance: Poor in standing Gait: Ambulates 150' with wwr and min A - reduced imnesh, inconsistent step-length, varied line of progression, narrow base of support with occasional scissor step, reduced RLE foot clearance with significant foot drop and slight hip circumduction & hip flexion to advance (better with cueing but cannot maintain) Stairs/Curb: Deferred due to time constraints Other: Session limited in time due to unplanned immediate D/C from facility. Patient would benefit from extensive therapeutic intervention, including AFO & AD. Patient/Family Education: PT plan of care, AD use, safety with mobility, gait mechanics, rehabilitation and d/c recommendations Appearance/Equipment at Conclusion of Session: Seated EOB with RN present, no alarms A: The patient is 23 y/o male presenting to PT with HIV infection. - The patient currently requires assistance, equipment, and/or supervision for functional mobility;and presents with associated deficits in strength, endurance, and balance. The patient would benefit from further skilled physical therapy to address these deficits, and to optimize safety & mobility secondary to D/C. Clinical Presentation: Evolving with changing characteristics - Evaluation Complexity: Low Complexity - These findings are based on patient's self reporting, therapist's objective findings and professional determinations. Recommend: Post Acute Facility- will be able to tolerate 3 hours of therapy/day - If unable/declines, recommend d/c home with supervision, equipment, and outpatient PT - Made on today's assessment. Additional recommendations will be based on patient's progress in therapy. P: PT to see patient: At bedside 2-5x/wk. Will continue therapy unless patient has a change in status or patient is discharged from the facility. Plan of Care developed, as indicated by PT assessmentand patient's current status. - Treatment Plan: Patient to be seen for Transfer training, Gait training, Exercises, Balance training - Patient goals will be found in the Care Plan section of the medical chart. - Patient involved in goal setting: Yes Recommendations for Nursing/Patient: OOB to chair with chair alarm, with assist Equipment Recommended at D/C: Wwr, AFO Zone #: [id number] On weekends--please call [phone] Initial 0930 Documentation: Formal Note Pending Patient requires wwr - ambulates 150' with min A - very narrow base (occasional scissoring pattern), significant R foot drop, and has poor muscular endurance to clear extremity. - worsened with turns and fatigue. Patient transfers with UE support and SBA or no UE support and min A. Recommend outpatient PT also. #[id number] S ENGRAVER S ENGRAVER * Care Plan - Tarsha West RN - 08/04/2019 6:15 AM CST Afebrile. Continues with hypertensive BP readings throughout the night. Only reported generalized discomfort once during the night. Medicated with Tylenol with reported good relief. Up independently to the BS to urinate. Denies any other issues. Anxious to clarify status and determine when he getsto go home. Problem: Pain, Potential/Actual Goal: Verbalizes/displays acceptable comfort level or baseline comfort level Description Outcome: Variance Problem: Infection Risk/Actual Goal: Infection Risk/Actual: Infection prevention, control, or resolution by discharge Description Outcome: Progressing Problem: Safety/Fall Goal: Safety/Fall: Absence of fall, injury, harm during hospitalization Description Outcome: Progressing Problem: Discharge Planning Goal: Identify discharge needs upon admission and through discharge Description Outcome: Progressing Problem: Mobility Goal: Absence of/Reduce Fall Risk r/t Mobility Deficits Description Patient is a fall risk because of mobility deficits. A patient with mobility deficits is automatically at high risk for falls. Potential Interventions: 1. Schedule patient toileting to avoid emergency trips to the bathroom 2. If available, use floor mats next to bed or in front of chair when up 3. If applicable, remove floor mats when getting patient up and replace when leaving patient 4. Assistive devices as required, educate patient on correct use of device (walkers, shower chairs,lift equipment, etc.) 5. Exit bed on patient's strongest side 6. Gait belt easily accessible 7. Activate bed or chair alarm while in bed or up in chair 8. Get order for PT consult if appropriate 9. Patient requires 2 assist - bedpan and bed bath if 2 staff not available, bedside commode if 2 staff are available entire time 10. Slow progressive position changes if patient experiencing dizziness Outcome: Progressing Problem: Toileting Needs Goal: Absence of/Reduce Fall Risk r/t Toileting Needs Description Patient is a fall risk because of toileting needs (i.e. - IV fluids, UTI, diuretics, frequency, diarrhea). Potential Interventions: 1. Schedule toileting at frequent intervals based on patient's needs (i.e. - hourly, every 2 hours) 2. Frequent rounding between toileting 3. Bedside Commode 4. Activate bed or chair alarm while in bed or up in chair 5. Encourage male patients to use urinal 6. Educate patient on fall risk, use of grab bars, and to call for assistance 7. Assess length of IV and/or O2 tubing if applicable 8. Use bedpan or lift equipment if patient also has other fall risk factors (i.e. - mobility) Outcome: Progressing Problem: Volume/Electrolyte Status Goal: Absence of/Reduce Fall Risk r/t Volume/Electrolyte Status Description Patient is a fall risk due to volume/electrolyte status (i.e. - electrolyte imbalances, nausea/vomiting, NPO, IV fluids). Potential Interventions: 1. Ensure blood sugar is checked at appropriate intervals and insulin dosing is given as ordered 2. Provide patient with an emesis basin or vomit bag (may need more than one at bedside) 3. Assess length of IV and/or O2 tubing if applicable 4. Ensure IV fluids are given as ordered for NPO patients to maintain hydration 5. Administer medications for nausea and vomiting as needed Outcome: Progressing Problem: Communication/Sensory Goal: Absence of/Reduce Fall Risk r/t Communication/Sensory Description Patient is a fall risk due to sensory or communication issues. Potential Interventions: 1.Use alternative communication devices wherever necessary and when available (i.e. - picture board, note pad and pen, etc) 2. TRANSACTION COORDINATOR referral if applicable 3. Provide education in patient's primary language. Obtain pet food deboner and appropriate written materials. If patient refuses pet food deboner services have refusal waiver signed 4. Patients with visual deficits - place belongings and call light within field of vision, maintainsame setup in surroundings, narrate setup and activities to patient, provide necessary visual aids (i.e. Glasses) 5. Patients with hearing deficits - have patient repeat teaching back to ensure understanding 6. Patients with neuropathy - use appropriate assistive devices to aid mobility, and/or use appropriate footwear 7. Slow progressive position changes if patient experiencing dizziness Outcome: Progressing Problem: Musculoskeletal Goal: Achieve optimal musculoskeletal function by discharge or maintain baseline function Outcome: Progressing Problem: Skin Goal: Maintain skin integrity and/or promote wound healing by discharge Outcome: Progressing Problem: Peripheral Neurovascular Goal: Achieve optimal peripheral neurovascular function by discharge or maintain baseline function Outcome: Progressing Problem: Physical Mobility, Impaired Goal: Mobility goal: Improve transfer ability by discharge Description Patient will transfer to/from toilet with modified independence. Outcome: Progressing Problem: Self-Care Deficit Goal: Self care goal: Improve ability to perform self care activities by discharge Description Patient will require modified independence with grooming/bathing with adaptive equipment. Outcome: Progressing Goal: Self care goal: Improve dressing ability by discharge Description Patient will require modified independence with upper extremity and lower extremity dressing with adaptive equipment. Outcome: Progressing Problem: Genitourinary/Renal Goal: Achieve optimal genitourinary and renal function by discharge or maintain baseline function Outcome: Progressing Problem: Medications Goal: Absence of/Reduce Fall Risk r/t Medications Description Patient is a fall risk because of medications (i.e. - BP meds, CV/SERGING MACHINE OPERATOR AUTOMATIC meds, seizure meds, diuretics, pain meds, psych [...] tolerance in hand-off communication Outcome: Progressing Problem: Last Known Fall Goal: Absence of/Reduce Fall Risk during current hospitalization Description Patient has a history of falls at [...] or up in chair Outcome: Progressing Problem: Behavior Goal: Absence of/Reduce Fall Risk r/t Behavior Description Potential Interventions: 1. Specialty low bed 2. [...] 11. Appropriate lighting for day/night Outcome: Progressing S ENGRAVER * Care Plan - Mishel Villatoro RN - 08/03/2019 7:14 AM CST Phil is alert and oriented x 4, ambulates with a gait belt and one assist, and complained of throat pain 4/10 that was controlled with Motrin. He did not have incontinence overnight, but did complain of urgency/hesitancy. There was no drainage from his skin lesions overnight, he was reminded to frequently reposition, and was educated on/assisted with personal hygiene. He remained afebrile through the night and all other vitals were stable. No further complaints at this time. S ENGRAVER * Care Plan - Mishel Villatoro RN - 08/02/2019 5:26 AM CST Phil is alert and oriented x 4, ambulates with a gait belt and one assist, and complains of generalized joint pain 4/10 that was controlled with [place] and repositioning. He has a fever of 102.5 overnight that subsided with Tylenol. He has had consistent urinary incontinence through the night which he states is not a new development, he occasionally is able to use the urinal at bedside. He reports feeling as though he is unable to completely empty his bladder, which he reports to have been happening intermittently prior to admission, but refused bladder scan because one had already been done and he did not want to use a straight catheter regardless of the result. His legs were cleaned/assessed and have no current open wounds or drainage. He demonstrates BLE weakness and only ambulated once throughout the night, he was educated on weight distrubution and reminded to reposition frequently to avoid wounds/skin breakdown. Lung sounds are clear, bowel sounds are audible in all quadrants.No further complaints at this time. S ENGRAVER * Care Plan - Mahsa Luciano, VICTOR MANUEL - 08/01/2019 10:50 AM CST Clinical documentation reviewed. Comprehensive Discharge Planning Risk Assessment was completed. Readmission Risk (patient becomes high risk with a score of 8 or greater) 2 Total Score (Last filed: Aug 01, 2019 0600) 2 Black/ Race Total Score of 9 or below does not identify immediate needs for discharge. Age Score: 0 Disability Score: 0 Prior Living Status Score: {0 Mobility Limitation Score: 0 TOTAL SCORE: 0 Patient referred to [facility] for assistance as no insurance at this time Please place consult if needs for discharge are identified. Sr. Mahsa Luciano MSN, RN IP Case Management [phone] Care Management will continue to follow for discharge planning. S ENGRAVER * Therapy Evaluation - Marisol Castro, Occupational Therapist - 08/01/2019 10:28 AM CST Occupational Therapy order received, chart reviewed, and evaluation completed. Please see full evaluation below for details. Daily OT notes will be located in Care Plan notes. Thank You. OT INITIAL EVALUATION Diagnosis: HIV infection Ordered by: Dewayne Activity Order: Ambulate with assist Weight Bearing Status: No restrictions Precautions: Fall; PMH: Past Medical History: Diagnosis Date ??? History of HIV infection S: Patient agreeable to therapy. Patient reports 0/10 pain. Pain intervention: No intervention required Response to pain intervention: Verbalized relief, Appeared content Living Situation/Functional Level STORE CASHIER: Pt. Lives with his grandfather in 2 story home with a basement, needs in basement with 1 step to enter. Pt. Reports independent with ADLs and mobility without device prior to admission. Pt. Reports that 2 months ago noticed limping on RLE and BLE knee buckling during mobility Home Equipment: None O: Appearance: 23 yo, male, supine in bed, IV Vision: no complaints Cognition/Perception: Alert and oriented x4 UE ROM: WFL Muscle Tone: WFL UE Strength: WFL Coordination: right Hand Dominant: WFL Sensation: reacts to touch Skin Integrity: rash and wounds on BLEs FUNCTIONAL ACTIVITIES ASSESSMENT: Feeding: (I) per pt. Report Grooming: SBA for hygiene and yovani care after toileting. SBA to wash upper body and lower body while sitting EOB. Min assist for balance standing at sink to brush teeth and wash face without device UE Dressing: SBA to [facility] gown LE Dressing: Max assist to don/do right sock, SBA to don/doff left sock. Min assist to [facility] pants Toilet Transfer: Min assist for functional transfer without device Functional Mobility: SBA supine <> sit EOB. SBA sitting EOB. Close SBA sit <> stand. Min assist ambulating without device ~20ft, 1 LOB noted, min assist to regain balance. Pt. Would benefit from use of WWR. Positioning after tx: Supine in bed, RN aware, alarm on, BLEs elevated, call light/needs within reach Patient/Family Education: Role of OT Equipment needed at DC: Ongoing A: Disabilities: Impaired ADLs, impaired functional mobility, impaired functional balance, decrease endurance, decrease strength Assessment: Pt. Would benefit from continued skilled OT to address above stated areas EVALUATION COMPLEXITY: Low Complexity -These findings are based on patient's self reporting, therapist's objective findings and professional determinations. Recommend: Home with home health, Home with supervision, Home with home safety evaluation, To be determined with further mobility and ADL progress Recommendations were made on today's assessment. Additional recommendations will be based on patient's progress in therapy. P: OT to see patient: only once at bedside 2-5x/wk Treatment: OT to see patient for: ADL Training, Functional Mobility Training, UE ROM/Strengthening,Patient Education, Cognition/Perception Will continue therapy unless patient has a change in statusor patient is discharged from the facility. --Patient involved in goal setting: yes Patient goals will be found in the Care Plan section of the medical chart. Zone #: [id number] On weekends--please call [phone] S ENGRAVER * Query - Suly Buchanan MD - 08/01/2019 7:20 AM CST Please respond within 48 hours. Thank you! The authenticated query note is part of the Legal Health Record Patient Name: Phil Chase Admission Date: 07/31/2019 [facility] Hospital #: [id number] Dear Doctor, Please continue to document the appropriate diagnosis for the clinical information above, in your Progress Notes, including through the Discharge Summary. Please keep the Problem List updated for continuity of care. (.hprobl or .probhospall) Clinical indicators and/or treatment for this patient include: Patient is a 23 y.o. male admitted on 07/31/2019 with severe rash and skin lesions. Diagnosed with HIV/AIDS in July 2017 at [facility]. Ht:??6' (182.9 cm), Last Wt:??60.9 kg (134 lb 4.8 oz), BMI:??18.21 kg/m?? Treatment: general diet, monitoring labs, I&O's Note: To answer the following question(s), please click EDIT button on the activity bar then click F2 in front of the highlighted area(s). Question: Clarify if there is an associated diagnosis to correspond with patient's BMI of 18.21: ??? Cachexia ??? Of no clinical significance ??? Underweight ??? Other (Specify) ??? Unable to determine Answer: Underweight Reference: CDI Pocket Guide BMI Underweight = BMI less than 18.5 Normal = BMI 18.5 - 24 Overweight = BMI 25 - 29 Obese = BMI 30 - 39 Morbid obesity = BMI 40+ In responding to this query, please exercise your independent professional judgment. Please be advised that coding regulations for inpatient admissions allow the physician to document presumptive/probable diagnoses. The fact that a question is asked does not imply that any particular answer is desired or expected. Thank you, Query identified by Natividad Polanco RN BSN CDI [email or web address] [phone] S ENGRAVER * Care Plan - Tarsha West RN - 08/01/2019 4:29 AM CST Temp high 100.7 HR 70-90s, sinus rhythm. Reporting generalized discomfort, rating it at 5/10. Medicated with Motrin and [place] 5/325. Temp back down to 98.8. Urine output increasing with IVF bolus andinfusion at 100ml/hr. Good oral intake throughout the evening. Appeared to sleep after MN when not disturbed. Problem: Pain, Potential/Actual Goal: Verbalizes/displays acceptable comfort level or baseline comfort level Description Outcome: Variance Problem: Infection Risk/Actual Goal: Infection Risk/Actual: Infection prevention, control, or resolution by discharge Description Outcome: Variance Problem: Safety/Fall Goal: Safety/Fall: Absence of fall, injury, harm during hospitalization Description Outcome: Progressing Problem: Discharge Planning Goal: Identify discharge needs upon admission and through discharge Description Outcome: Progressing Problem: Mobility Goal: Absence of/Reduce Fall Risk r/t Mobility Deficits Description Patient is a fall risk because of mobility deficits. A patient with mobility deficits is automatically at high risk for falls. Potential Interventions: 1. Schedule patient toileting to avoid emergency trips to the bathroom 2. If available, use floor mats next to bed or in front of chair when up 3. If applicable, remove floor mats when getting patient up and replace when leaving patient 4. Assistive devices as required, educate patient on correct use of device (walkers, shower chairs,lift equipment, etc.) 5. Exit bed on patient's strongest side 6. Gait belt easily accessible 7. Activate bed or chair alarm while in bed or up in chair 8. Get order for PT consult if appropriate 9. Patient requires 2 assist - bedpan and bed bath if 2 staff not available, bedside commode if 2 staff are available entire time 10. Slow progressive position changes if patient experiencing dizziness Outcome: Progressing Problem: Toileting Needs Goal: Absence of/Reduce Fall Risk r/t Toileting Needs Description Patient is a fall risk because of toileting needs (i.e. - IV fluids, UTI, diuretics, frequency, diarrhea). Potential Interventions: 1. Schedule toileting at frequent intervals based on patient's needs (i.e. - hourly, every 2 hours) 2. Frequent rounding between toileting 3. Bedside Commode 4. Activate bed or chair alarm while in bed or up in chair 5. Encourage male patients to use urinal 6. Educate patient on fall risk, use of grab bars, and to call for assistance 7. Assess length of IV and/or O2 tubing if applicable 8. Use bedpan or lift equipment if patient also has other fall risk factors (i.e. - mobility) Outcome: Progressing Problem: Volume/Electrolyte Status Goal: Absence of/Reduce Fall Risk r/t Volume/Electrolyte Status Description Patient is a fall risk due to volume/electrolyte status (i.e. - electrolyte imbalances, nausea/vomiting, NPO, IV fluids). Potential Interventions: 1. Ensure blood sugar is checked at appropriate intervals and insulin dosing is given as ordered 2. Provide patient with an emesis basin or vomit bag (may need more than one at bedside) 3. Assess length of IV and/or O2 tubing if applicable 4. Ensure IV fluids are given as ordered for NPO patients to maintain hydration 5. Administer medications for nausea and vomiting as needed Outcome: Progressing Problem: Communication/Sensory Goal: Absence of/Reduce Fall Risk r/t Communication/Sensory Description Patient is a fall risk due to sensory or communication issues. Potential Interventions: 1.Use alternative communication devices wherever necessary and when available (i.e. - picture board, note pad and pen, etc) 2. TRANSACTION COORDINATOR referral if applicable 3. Provide education in patient's primary language. Obtain pet food deboner and appropriate written materials. If patient refuses pet food deboner services have refusal waiver signed 4. Patients with visual deficits - place belongings and call light within field of vision, maintainsame setup in surroundings, narrate setup and activities to patient, provide necessary visual aids (i.e. Glasses) 5. Patients with hearing deficits - have patient repeat teaching back to ensure understanding 6. Patients with neuropathy - use appropriate assistive devices to aid mobility, and/or use appropriate footwear 7. Slow progressive position changes if patient experiencing dizziness Outcome: Progressing Problem: Musculoskeletal Goal: Achieve optimal musculoskeletal function by discharge or maintain baseline function Outcome: Progressing Problem: Skin Goal: Maintain skin integrity and/or promote wound healing by discharge Outcome: Progressing Problem: Peripheral Neurovascular Goal: Achieve optimal peripheral neurovascular function by discharge or maintain baseline function Outcome: Progressing S ENGRAVER * Treatment Plan - Lloyd Clarke, PHARMACIST - 07/31/2019 7:48 PM GLASS ENGRAVER Pharmacy Note: Vancomycin Consult Mr. Phil Chase is a 23 y.o. male currently in 73/1 who was admitted 07/31/2019 10:01 AM. The pharmacy team is consulted for vancomycin management by Dr. Ac. BP (!) 137/91 (BP Location: Right arm, Patient Position (BP): Sitting) Pulse (!) 102 Temp 99 ??F (37.2 ??C) (Oral) Resp 18 Ht 6' (1.829 m) Wt 60.9 kg (134 lb 4.8 oz) SpO2 100% BMI 18.21kg/m?? All: Patient has no known allergies. Patient Active Problem List Diagnosis Code ??? Symptomatic HIV infection B20 ??? Skin lesion of lower extremity L98.9 ??? Oral thrush B37.0 ??? Oropharyngeal dysphagia R13.12 ??? Pain of right lower extremity M79.604 Recent Labs 07/31/19 1116 NA 142 K 3.8 CL 102 CO2 26 CA 9.4 CREAT 0.93 Recent Labs 07/31/19 1116 WBC 5.9 HGB 11.9* HCT 37.3* PLT 289 Recent Labs 07/31/19 1116 07/31/19 1158 CRP 7.2* -- LACTATE -- 0.5 Microbiology: pending Assessment: Patient is a 23 y.o. male requiring vancomycin for celluliltis. Goal trough 10- 20 mcg/ml. The patient's most recent weight is 60 kg. Estimated Creatinine Clearance: 104.6 mL/min (by C-G formula basedon SCr of 0.93 mg/dL). Plan: 1. Initial therapy will be vancomycin 1250 mg IV x1, then 1000 mg q12hr. 2. Level due 08/02 at 0530 prior to the 4th dose. The pharmacy will continue to follow and adjust as appropriate. Thank you for allowing me to participate in the care of this patient. Lloyd Clarke, PHARMACIST 07/31/2019 7:48 PM Cosigned by Daren Ac MD at 07/31/2019 8:49 PM GLASS ENGRAVER S ENGRAVER S ENGRAVER * Care Plan - Silvia Ortiz - 07/31/2019 2:41 PM CST CRC received referral to connect patient with resources. CRC met with patient while in the ED. CRC provided patient with [employer] FA application, [employer] application and [employer] CHW intro letter. CRC explained referral to [facility] for ongoing care post hospitalization. Patient was agreeable to referral. CRC will update patient and chart once she gets a response. AIDE [facility] [phone] S ENGRAVER documented in this encounter Plan of Treatment Scheduled Orders Name Type Priority Associated Diagnoses Orde r Schedule HIV 1 RNA, QUANTITATIVE Lab Routine HIV infection, unspecified symptom status Ordered: 07/31/2019 documented as of this encounter Procedures Procedure Name Priority Date/Time Associated Diagnosis Comments VANCOMYCIN LEVEL TROUGH Timed Study 08/03/19 20 11:46 AM GLASS ENGRAVER CBC WITH DIFFERENTIAL Routine 08/03/2019 6:40 AM GLASS ENGRAVER BASIC METABOLIC PANEL Routine 08/03/2019 6:40 AM GLASS ENGRAVER XR HIP 2 OR 3 VIEWS RT Routine 0 1:22 PM GLASS ENGRAVER CBC WITH DIFFERENTIAL Routine 08/02/2019 8:05 AM GLASS ENGRAVER VANCOMYCIN LEVEL TROUGH Timed Study 08/02/19 8:05 AM GLASS ENGRAVER BASIC METABOLIC PANEL Routine 08/02/2019 8:05 AM GLASS ENGRAVER CBC WITH DIFFERENTIAL Routine 08/01/2019 7:20 AM GLASS ENGRAVER BASIC METABOLIC PANEL Routine 08/01/2019 7:20 AM GLASS ENGRAVER HEPATITIS B SURFACE AB, QUANT Stat 07/31/2019 10:44 PM GLASS ENGRAVER QUANTIFERON TB GOLD Stat 07/31/2019 1 0:44 PM GLASS ENGRAVER HIV 1 GENOTYPE Stat 07/31/2019 10:44 PM GLASS ENGRAVER HEPATITIS B SURFACE ANTIGEN Stat 07/31/2019 10:44 PM GLASS ENGRAVER HEPATITIS C ANTIBODY Stat 07/31/2019 10:44 PM GLASS ENGRAVER RPR Stat 07/31/2019 10:44 PM GLASS ENGRAVER TREPONEMA PALLIDUM CONFIRMATION Routine 07/31/2019 10:44 PM GLASS ENGRAVER HSV TYPE 1 AND 2 IGG ANTIBODY Stat 07/31/2019 10:43 PM GLASS ENGRAVER TOXOPLASMOSIS AB IGG/IGM Stat 07/31/2019 10:43 PM GLASS ENGRAVER HEPATITIS A IGG Stat 07/31/2019 10:43 PM GLASS ENGRAVER CMV IGG Stat 07/31/2019 10:43 PM GLASS ENGRAVER MRSA PCR RAPID SCREEN Stat 07/31/2019 6:52 PM GLASS ENGRAVER GC/CHLAMYDIA, URINE Stat 07/31/2019 6 :51 PM GLASS ENGRAVER URINALYSIS W/REFLEX MICROSCOPIC Stat 07/31/2019 6:51 PM GLASS ENGRAVER XR FEMUR 2 VW RIGHT Stat 07/31/2019 4 :35 PM GLASS ENGRAVER POC LACTIC ACID Stat 07/31/2019 11:58 AM GLASS ENGRAVER XR CHEST PA AND LATERAL 2 VW Stat 07/31/2019 11:41 AM GLASS ENGRAVER POC RAPID HIV Stat 07/31/2019 11:38 AM GLASS ENGRAVER HIV 1/HIV 2 AB DIFFERENTIATION Stat 07/31/2019 11:16 AM GLASS ENGRAVER HIV DETECTION W/REFLX CONFIRMATION Stat 07/31/2019 11:16 AM GLASS ENGRAVER DIFFERENTIAL, MANUAL Stat 07/31/2019 11:16 AM GLASS ENGRAVER CBC WITH DIFFERENTIAL Stat 07/31/2019 11:16 AM GLASS ENGRAVER BLOOD CULTURE Stat 07/31/2019 11:16 AM GLASS ENGRAVER BLOOD CULTURE Stat 07/31/2019 11:16 AM GLASS ENGRAVER CD4/CD8 T CELLS PANEL Stat 07/31/2019 11:16 AM GLASS ENGRAVER PROTIME-INR Stat 07/31/2019 11:16 AM GLASS ENGRAVER C-REACTIVE PROTEIN Stat 07/31/2019 11 :16 AM GLASS ENGRAVER HEMOGLOBIN A1C Stat 07/31/2019 11:16 AM GLASS ENGRAVER COMPREHENSIVE METABOLIC PANEL Stat 07/31/2019 11:16 AM GLASS ENGRAVER POC GLUCOSE Stat 07/31/2019 10:32 AM GLASS ENGRAVER RAPID STREP SCREEN WITH REFLEX CULTURE Stat 07/31/2019 10:30 AM GLASS ENGRAVER STREPTOCOCCUS GROUP A CULTURE Stat 07/31/2019 10:30 AM GLASS ENGRAVER POC GLUCOSE Stat 07/31/2019 9:54 AM GLASS ENGRAVER documented in this encounter Results * (ABNORMAL) VANCOMYCIN LEVEL TROUGH (08/03/2019 11:46 AM GLASS ENGRAVER) Pathologist [facility] VANCOMYCIN, TROUGH 9.6(L) 10.0 - 20.0 ug/mL 08/03/2019 12:25 PM [facility] [employer] [facility] Blood Venipuncture / Unknown 08/03/2019 11:46 AM GLASS ENGRAVER 08/03/2019 11:52 AM GLASS ENGRAVER [facility] - 08/03/2019 12:25 PM GLASS ENGRAVER Vancomycin Trough Therapeutic Range = 10.0 - 20.0 ug/mL Vancomycin Trough Toxic Level = >25.0 ug/mL Daren Ac MD CHEMISTRY ORDERABLES Final Resul t [facility] [employer] [facility]# [id number] [address] [place] [address] * (ABNORMAL) BASIC METABOLIC PANEL (08/03/2019 6:40 AM GLASS ENGRAVER) [facility] SODIUM 139 136 - 145 mmol/L 08/03/2019 7:25 AM [facility] [employer] [facility] POTASSIUM 4.3 3.5 - 5.0 mmol/L 08/03/2019 7:25 AM [facility] [employer] [facility] Comment:Slightly hemolyzed. Result may be falsely elevated. CHLORIDE 111(H) 98 - 107 mmol/L 08/03/2019 7:25 AM [facility] [employer] [facility] [facility] CO2 20(L) 22 - 29 mmol/L 08/03/2019 7:25 AM [facility].[employer] [facility] CALCIUM 8.6 8.6 - 10.2 mg/dL 08/03/2019 7:25 AM [facility] [employer] [facility] BUN 8 6 - 20 mg/dL 08/03/2019 7:25 AM [facility] [employer] [facility] CREATININE 0.79 0.67 - 1.17 mg/dL 08/03/2019 7:25 AM GLASS ENGRAVER [employer] [facility] GLUCOSE 94 74 - 99 mg/dL 08/03/2019 7:25 AM [facility] [employer] [facility] GFR >60 >=60 mL/min/1.7 3 sq meter 08/03/2019 7:25 AM [facility] [employer] [facility] Comment: eGFR has not been validated for [...] GFR, >60 >=60 mL/min/1.7 3 sq meter 08/03/2019 7:25 AM [facility] [employer] [facility] ANION GAP 8 8 - 16 mmol/L 08/03/2019 7:25 AM [facility] [employer] [facility] Blood Venipuncture / Unknown 08/03/2019 6:40 AM GLASS ENGRAVER 08/03/2019 6:52 AM GLASS ENGRAVER Suly Buchanan MD CHEMISTRY ORDERABLES Final Result [facility] [employer] [facility]# [id number] [address] [facility] [place] [address] * (ABNORMAL) CBC WITH DIFFERENTIAL (08/03/2019 6:40 AM GLASS ENGRAVER) WBC 2.2(L) 4.0 - 9.8 K/uL 08/03/2019 7:01 AM [facility] [employer] [facility] RBC 4.27(L) 4.50 - 5.40 M/uL 08/03/2019 7:01 AM [facility] [employer] [facility] HEMOGLOBIN 11.1(L) 13.6 - 16.5 g/dL 08/03/2019 7:01 AM [facility].[employer] [facility] HEMATOCRIT 35.3(L) 40.0 - 48.0 % 08/03/2019 7:01 AM [employer] [facility] - [facility] MCV 82.7 82.0 - 99.0 fL 08/03/2019 7:01 AM [employer] [facility]ORY SERVICES - [facility] MCH 26.0(L) 27.2 - 32.6 pg 08/03/2019 7:01 AM [employer] [facility]ORY SERVICES - [facility] MCHC 31.4(L) 31.5 - 35.5 g/dL 08/03/2019 7:01 AM [employer] [facility] - [facility] RDW 14.5 11.5 - 14.5 % 08/03/2019 7:01 AM [employer] [facility] - [facility] RDW-STDEV 43.6 37.1 - 48.7 fL 08/03/2019 7:01 AM [employer] [facility] - [facility] PLATELETS 300 140 - 350 K/uL 08/03/2019 7:01 AM [employer] [facility] - [facility] MPV 9.6 9.3 - 12.4 fL 08/03/2019 7:01 AM [employer] [facility] - [facility] NEUTROPHILS 44 % 08/03/2019 7:01 AM [employer] [facility] - [facility] LYMPHOCYTES 28 % 08/03/2019 7:01 AM [employer] [facility] - [facility] MONOCYTES 8 % 08/03/2019 7:01 AM [employer] [facility] - [facility] EOSINOPHILS 20 % 08/03/2019 7:01 AM [employer] [facility] - [facility] BASOPHILS 1 % 08/03/2019 7:01 AM [employer] [facility] - [facility] IMMATURE GRANULOCYTES 0 % 08/03/2019 7:01 AM [employer] [facility] - [facility] NEUTROPHIL ABSOLUTE 0.97(L) 1.90 - 7.00 K/uL 08/03/2019 7:01 AM [employer] LABORATORY SERVICES - . [facility] LYMPHOCYTE ABSOLUTE 0.61(L) 0.70 - 4.50 K/uL 08/03/2019 7:01 AM [employer] [facility]ORY SERVICES - [facility] MONOCYTE ABSOLUTE 0.18 0.10 - 1.30 K/uL 08/03/2019 7:01 AM [employer] [facility] - [facility] EOSINOPHIL ABSOLUTE 0.44 0.00 - 0.70 K/uL 08/03/2019 7:01 AM [facility] BASOPHILS ABSOLUTE 0.01 0.00 - 0.20 K/uL 08/03/2019 7:01 AM [facility] LABORATORY [facility] IMMATURE GRANULOCYTES ABSOLUTE 0.00 0.00 - 0.03 K/uL 08/03/2019 7:01 AM [facility] LABORATORY [facility] Blood Venipuncture / Unknown 08/03/2019 6:40 AM GLASS ENGRAVER 08/03/2019 6:52 AM GLASS ENGRAVER Suly Buchanan MD HEMATOLOGY ORDERABLES Final Result [facility] [id number] [address] [place] [address] * XR HIP 2 OR 3 VIEWS RT (08/02/2019 1:22 PM GLASS ENGRAVER) Anatomical Region Laterality Modality Lower Extremity Right Computed Radiogr aphy 08/02/2019 1:24 PM GLASS ENGRAVER Impressions 08/02/2019 1:41 PM GLASS ENGRAVER IMPRESSION: 1. No evidence of acute osseous injury. Dictated by Ezra Smith MD. DICTATION LOCATION: Location 1 - [facility] Narrative 08/02/2019 1:41 PM GLASS ENGRAVER EXAM: XR HIP 2 OR 3 VIEWS RT DATE: 08/02/2019 1:22 PM HISTORY: Pain; HIV infection, unspecified symptom status; Oral thrush; Oropharyngeal dysphagia; Cellulitis and abscess of leg; Cellulitis and abscess of leg; Skin lesions, generalized; History of syphilis COMPARISON: Femur radiographs performed 07/31/2019 FINDINGS: The osseous architecture is normal and the joint spaces are maintained. Bone mineralization is normal. Procedure Note Ezra Smith MD - 08/02/2019 EXAM: XR HIP 2 OR 3 VIEWS RT DATE: 08/02/2019 1:22 PM HISTORY: Pain; HIV infection, unspecified symptom status; Oral thrush; Oropharyngeal dysphagia; Cellulitis and abscess of leg; Cellulitis and abscess of leg; Skin lesions, generalized; History of syphilis COMPARISON: Femur radiographs performed 07/31/2019 FINDINGS: The osseous architecture is normal and the joint spaces are maintained. Bone mineralization is normal. IMPRESSION: 1. No evidence of acute osseous injury. Dictated by Ezra Smith MD. DICTATION LOCATION: Location 1 - [facility] Suly Buchanan MD DIAGNOSTIC IMAGING ORDERABL ES Final Result * (ABNORMAL) VANCOMYCIN LEVEL TROUGH (08/02/2019 8:05 AM GLASS ENGRAVER) VANCOMYCIN, TROUGH 7.6(L) 10.0 - 20.0 ug/mL 08/02/2019 9:49 AM [facility] [employer] [facility] Blood Venipuncture / Unknown 08/02/2019 8:05 AM GLASS ENGRAVER 08/02/2019 8:44 AM GLASS ENGRAVER [facility] [employer] [facility] - 08/02/2019 9:49 AM GLASS ENGRAVER Vancomycin Trough Therapeutic Range = 10.0 - 20.0 ug/mL Vancomycin Trough Toxic Level = >25.0 ug/mL Daren Ac MD CHEMISTRY ORDERABLES Final Resul t [facility] [employer] [facility]# [id number] [address] [place] [address] * (ABNORMAL) BASIC METABOLIC PANEL (08/02/2019 8:05 AM GLASS ENGRAVER) SODIUM 141 136 - 145 mmol/L 08/02/2019 9:48 AM [facility] [email or web address]] [employer] [facility] POTASSIUM 3.9 3.5 - 5.0 mmol/L 08/02/2019 9:48 AM [facility] [email or web address]] [employer] [facility] CHLORIDE 108(H) 98 - 107 mmol/L 08/02/2019 9:48 AM [facility] [employer] [facility] CO2 23 22 - 29 mmol/L 08/02/2019 9:48 AM [facility] [employer] [facility] CALCIUM 8.7 8.6 - 10.2 mg/dL 08/02/2019 9:48 AM [facility] [employer] [facility] BUN 6 6 - 20 mg/dL 08/02/2019 9:48 AM [facility] [email or web address]] [employer] [facility] CREATININE 0.83 0.67 - 1.17 mg/dL 08/02/2019 9:48 AM [facility] [employer] [facility] GLUCOSE 90 74 - 99 mg/dL 08/02/2019 9:48 AM [facility] [employer] [facility] GFR >60 >=60 mL/min/1.7 3 sq meter 08/02/2019 9:48 AM [facility] Comment: eGFR has not been validated for [...] GFR, >60 >=60 mL/min/1.7 3 sq meter 08/02/2019 9:48 AM [facility].[employer] [facility] ANION GAP 10 8 - 16 mmol/L 08/02/2019 9:48 AM [facility].[employer] [facility] Blood Venipuncture / Unknown 08/02/2019 8:05 AM GLASS ENGRAVER 08/02/2019 8:44 AM GLASS ENGRAVER us Suly Buchanan MD CHEMISTRY ORDERABLES Final Result [facility] [employer] [facility]# [id number] 5 [place] [address] * (ABNORMAL) CBC WITH DIFFERENTIAL (08/02/2019 8:05 AM GLASS ENGRAVER) WBC 2.8(L) 4.0 - 9.8 K/uL 08/02/2019 9:00 AM [facility] [employer] [facility] RBC 4.69 4.50 - 5.40 M/uL 08/02/2019 9:00 AM [facility].[employer] [facility] HEMOGLOBIN 12.2(L) 13.6 - 16.5 g/dL 08/02/2019 9:00 AM [employer] [facility] SERVICES - [facility] HEMATOCRIT 39.1(L) 40.0 - 48.0 % 08/02/2019 9:00 AM GLASS ENGRAVER [employer] LABORATORY SERVICES - [facility] MCV 83.4 82.0 - 99.0 fL 08/02/2019 9:00 AM GLASS ENGRAVER [employer] LABORATORY SERVICES - [facility] MCH 26.0(L) 27.2 - 32.6 pg 08/02/2019 9:00 AM GLASS ENGRAVER [employer] LABORATORY SERVICES [facility] MCHC 31.2(L) 31.5 - 35.5 g/dL 08/02/2019 9:00 AM [employer] [facility]ATORY SERVICES - [facility] RDW 14.4 11.5 - 14.5 % 08/02/2019 9:00 AM [employer] LABORATORY SERVICES [facility] RDW-STDEV 43.2 37.1 - 48.7 fL 08/02/2019 9:00 AM [employer] LABORATORY SERVICES [facility] PLATELETS 285 140 - 350 K/uL 08/02/2019 9:00 AM [employer] LABORATORY SERVICES [facility] MPV 9.7 9.3 - 12.4 fL 08/02/2019 9:00 AM [employer] LABORATORY SERVICES [facility] NEUTROPHILS 53 % 08/02/2019 9:00 AM [employer] LABORATORY SERVICES [facility] LYMPHOCYTES 28 % 08/02/2019 9:00 AM [employer] LABORATORY SERVICES [facility] MONOCYTES 6 % 08/02/2019 9:00 AM [employer] LABORATORY SERVICES [facility] EOSINOPHILS 13 % 08/02/2019 9:00 AM [employer] LABORATORY SERVICES [facility] BASOPHILS 0 % 08/02/2019 9:00 AM GLASS ENGRAVER [employer] LABORATORY SERVICES [facility] IMMATURE GRANULOCYTES 0 % 08/02/2019 9:00 AM GLASS ENGRAVER [employer] LABORATORY SERVICES [facility] NEUTROPHIL ABSOLUTE 1.47(L) 1.90 - 7.00 K/uL 08/02/2019 9:00 AM GLASS ENGRAVER [employer] LABORATORY SERVICES [facility]. [facility] LYMPHOCYTE ABSOLUTE 0.78 0.70 - 4.50 K/uL 08/02/2019 9:00 AM [employer] LABORATORY SERVICES [facility] MONOCYTE ABSOLUTE 0.16 0.10 - 1.30 K/uL 08/02/2019 9:00 AM GLASS ENGRAVER [employer] LABORATORY SERVICES [facility] EOSINOPHIL ABSOLUTE 0.37 0.00 - 0.70 K/uL 08/02/2019 9:00 AM GLASS ENGRAVER [employer] LABORATORY SERVICES - [facility] BASOPHILS ABSOLUTE 0.01 0.00 - 0.20 K/uL 08/02/2019 9:00 AM GLASS ENGRAVER [employer] LABORATORY SERVICES [facility] IMMATURE GRANULOCYTES ABSOLUTE 0.00 0.00 - 0.03 K/uL 08/02/2019 9:00 AM [facility] [email or web address]] [employer] LAB[facility]ATORY SERVICES [facility] Blood Venipuncture / Unknown 08/02/2019 8:05 AM GLASS ENGRAVER 08/02/2019 8:44 AM GLASS ENGRAVER Suly Buchanan MD HEMATOLOGY ORDERABLES Final Result [facility] LABORATORY SERVICES [facility] CLIA# [id number] [address] [place] [address] * (ABNORMAL) BASIC METABOLIC PANEL (08/01/2019 7:20 AM GLASS ENGRAVER) SODIUM 142 136 - 145 mmol/L 08/01/2019 8:44 AM [facility] [email or web address]] [employer] LABORATORY SERVICES - . [facility] POTASSIUM 3.7 3.5 - 5.0 mmol/L 08/01/2019 8:44 AM [facility] [email or web address]] [employer] LABORATORY SERVICES - . [facility] CHLORIDE 112(H) 98 - 107 mmol/L 08/01/2019 8:44 AM [facility] [[email or web address]] [employer] LABORATORY SERVICES [facility]. [facility] CO2 21(L) 22 - 29 mmol/L 08/01/2019 8:44 AM [facility] [[email or web address]] [employer] LABORATORY SERVICES - . [facility] CALCIUM 8.5(L) 8.6 - 10.2 mg/dL 08/01/2019 8:44 AM [facility] [[email or web address]] [employer] LABORATORY SERVICES - [facility] BUN 8 6 - 20 mg/dL 08/01/2019 8:44 AM [facility] [[email or web address]] [employer] LABORATORY SERVICES - . [facility] CREATININE 0.92 0.67 - 1.17 mg/dL 08/01/2019 8:44 AM [facility] [[email or web address]] [employer] LABORATORY SERVICES - . [facility] GLUCOSE 94 74 - 99 mg/dL 08/01/2019 8:44 AM [facility] [[email or web address]] [employer] LABORATORY SERVICES - . [facility] GFR >60 >=60 mL/min/1.7 3 sq meter 08/01/2019 8:44 AM [facility] [[email or web address]] [employer] [facility] Comment: eGFR has not been validated for [...] GFR, >60 >=60 mL/min/1.7 3 sq meter 08/01/2019 8:44 AM GLASS ENGRAVER [employer] [facility] ANION GAP 9 8 - 16 mmol/L 08/01/2019 8:44 AM [facility] [[email or web address]] [employer] [facility] Blood Venipuncture / Unknown 08/01/2019 7:20 AM GLASS ENGRAVER 08/01/2019 8:11 AM GLASS ENGRAVER Suly Buchanan MD CHEMISTRY ORDERABLES Final Result [employer] [facility]# [id number] [address] [place] [address] * (ABNORMAL) CBC WITH DIFFERENTIAL (08/01/2019 7:20 AM GLASS ENGRAVER) WBC 2.8(L) 4.0 - 9.8 K/uL 08/01/2019 8:20 AM [facility] [[email or web address]] [employer] [facility] RBC 3.97(L) 4.50 - 5.40 M/uL 08/01/2019 8:20 AM GLASS ENGRAVER [employer] [facility] HEMOGLOBIN 10.3(L) 13.6 - 16.5 g/dL 08/01/2019 8:20 AM [facility] [[email or web address]] [employer] [facility] HEMATOCRIT 32.8(L) 40.0 - 48.0 % 08/01/2019 8:20 AM [facility] [[email or web address]] [employer] [facility] MCV 82.6 82.0 - 99.0 fL 08/01/2019 8:20 AM GLASS ENGRAVER [employer] [facility] MCH 25.9(L) 27.2 - 32.6 pg 08/01/2019 8:20 AM GLASS ENGRAVER [employer] LABORATORY SERVICES - [facility] MCHC 31.4(L) 31.5 - 35.5 g/dL 08/01/2019 8:20 AM GLASS ENGRAVER [employer] LABORATORY SERVICES - [facility] RDW 14.4 11.5 - 14.5 % 08/01/2019 8:20 AM GLASS ENGRAVER [employer] LABORATORY SERVICES - [facility] RDW-STDEV 43.3 37.1 - 48.7 fL 08/01/2019 8:20 AM GLASS ENGRAVER [employer] LABORATORY SERVICES - [facility] PLATELETS 262 140 - 350 K/uL 08/01/2019 8:20 AM GLASS ENGRAVER [employer] LABORATORY SERVICES - [facility] MPV 10.1 9.3 - 12.4 fL 08/01/2019 8:20 AM GLASS ENGRAVER [employer] LABORATORY SERVICES - [facility] NEUTROPHILS 55 % 08/01/2019 8:20 AM GLASS ENGRAVER [employer] LABORATORY SERVICES - [facility] LYMPHOCYTES 31 % 08/01/2019 8:20 AM [employer] LABORATORY SERVICES - [facility] MONOCYTES 5 % 08/01/2019 8:20 AM GLASS ENGRAVER [employer] LABORATORY SERVICES - . [facility] EOSINOPHILS 9 % 08/01/2019 8:20 AM GLASS ENGRAVER [employer] LABORATORY SERVICES - . [facility] BASOPHILS 0 % 08/01/2019 8:20 AM [employer] LABORATORY SERVICES - . [facility] IMMATURE GRANULOCYTES 0 % 08/01/2019 8:20 AM GLASS ENGRAVER [employer] LABORATORY SERVICES - [facility] NEUTROPHIL ABSOLUTE 1.51(L) 1.90 - 7.00 K/uL 08/01/2019 8:20 AM GLASS ENGRAVER [employer] LABORATORY SERVICES - . [facility] LYMPHOCYTE ABSOLUTE 0.85 0.70 - 4.50 K/uL 08/01/2019 8:20 AM GLASS ENGRAVER [employer] LABORATORY SERVICES - . [facility] MONOCYTE ABSOLUTE 0.13 0.10 - 1.30 K/uL 08/01/2019 8:20 AM GLASS ENGRAVER [employer] LABORATORY SERVICES - . [facility] EOSINOPHIL ABSOLUTE 0.25 0.00 - 0.70 K/uL 08/01/2019 8:20 AM GLASS ENGRAVER [employer] LABORATORY SERVICES - . [facility] BASOPHILS ABSOLUTE 0.01 0.00 - 0.20 K/uL 08/01/2019 8:20 AM GLASS ENGRAVER [employer] LABORATORY SERVICES - . [facility] IMMATURE GRANULOCYTES ABSOLUTE 0.00 0.00 - 0.03 K/uL 08/01/2019 8:20 AM GLASS ENGRAVER [facility] Blood Venipuncture / Unknown 08/01/2019 7:20 AM GLASS ENGRAVER 08/01/2019 8:11 AM GLASS ENGRAVER Suly Buchanan MD HEMATOLOGY ORDERABLES Final Result [facility] CLIA# [id number] [address] [place] [address] * (ABNORMAL) TREPONEMA PALLIDUM CONFIRMATION (07/31/2019 10:44 PM GLASS ENGRAVER) TREPONEMA PALLIDUM PARTICLE AGGLUT Positive (A) Negative 08/02/2019 3:[address] [facility] Comment: Result suggests infection with T. pallidum at some time in the past, but does not distinguish between treated and untreated syphilis as treponemal antibodies can remain elevated despite proper treatment. ??RPR testing is recommended to distinguish between treated and untreated syphilis. For additional information on interpretation of the syphilis reverse algorithm and results, see: [email or web address] it-[email or web address]_Algorithm.pdf ADDITIONAL INFORMATION This test is intended to be used as a confirmatory test on samples that have been tested by another syphilis test. Test Performed by: [address] [address] [employer] Department Manager: Henrique Miller M.D. Ph.D.; CLIA# [id number] Blood Venipuncture / Unknown 07/31/2019 10:44 PM GLASS ENGRAVER 07/31/2019 10:50 PM GLASS ENGRAVER us Daren Ac MD CHEMISTRY ORDERABLES Final Resul t [facility] * HEPATITIS C ANTIBODY W REFLEX (07/31/2019 10:44 PM GLASS ENGRAVER) Pathologist [facility] HEPATITIS C AB NON-REACTI VE Non-react makeda 07/31/2019 11:33 PM GLASS ENGRAVER [facility] [employer] [facility] Comment:If a patient is know n to be at high risk for HCV infection, or is symptomatic, and the physician's suspicion of HCV infection is high, HCV RNA testing is often employed and is of diagnostic value, even after an initial negative anti-HCV test result. Signal to cutoff index is <1.00. Blood Venipuncture / Unknown 07/31/2019 10:44 PM GLASS ENGRAVER 07/31/2019 10:50 PM GLASS ENGRAVER Daren Ac MD CHEMISTRY ORDERABLES Final Resul t Performing Organization Address [facility]/ZIP Co de Phone Number [facility]# [id number] [address] [place] [address] * HEPATITIS B SURFACE ANTIGEN (07/31/2019 10:44 PM GLASS ENGRAVER) Pathologist [facility] HEPATITIS B SURFACE AG NON-REACTI VE Non-reacti ve 07/31/2019 11:33 PM GLASS ENGRAVER [facility] Blood Venipuncture / Unknown 07/31/2019 10:44 PM GLASS ENGRAVER 07/31/2019 10:50 PM GLASS ENGRAVER Daren Ac MD CHEMISTRY ORDERABLES Final Resul t Performing Organization Address City/[facility]/ZIP Co de Phone Number [facility]# [id number] [address] [place], [place] [address] * (ABNORMAL) HEPATITIS B SURFACE AB, QUANT (07/31/2019 10:44 PM GLASS ENGRAVER) Pathologist [facility] HEPATITIS B SURF AB,QN <4.0 mlU/mL 07/31/2019 11:34 PM GLASS ENGRAVER [facility] [employer] [facility] HEPATITIS B SURFACE AB INTERP Non-reacti ve(A) See Interp 07/31/2019 11:34 PM [facility] Blood Venipuncture / Unknown 07/31/2019 10:44 PM GLASS ENGRAVER 07/31/2019 10:50 PM GLASS ENGRAVER Narrative [facility] - 07/31/2019 11:34 PM GLASS ENGRAVER Patient does not have immunity to Hepatitis B virus. ??This assay is used to determine immune status to Hepatitis B as greater than or equal to 10 mIU/mL as per CDC guidelines (MMWR:vol 55: RR-16, 2006). us Daren Ac MD CHEMISTRY ORDERABLES Final Resul t [facility] [id number] [address] [place] [address] * QUANTIFERON TB GOLD (07/31/2019 10:44 PM GLASS ENGRAVER) [facility] QUANTIFERON TB GOLD PLUS Negative Negative 08/04/2019 1:53 PM [facility] Comment: No interferon-gamma response to M. tuberculosis antigens was detected. Infection with M. tuberculosis is unlikely. A single negative result does not exclude infection with M. tuberculosis. In patients at high risk for M.tuberculosis infection, a second test should be considered in accordance with the 2017 ATS/IDSA/CDC Clinical Practice Guidelines for Diagnosis of Tuberculosis in Adults and Children [Lewinsfadin DYLAN et. al. Clin. Infect. Dis. 2017;64(2):111-115]. The reference range for the 'TB1 Ag minus Nil Result' and 'TB2 Ag minus Nil Result' is an Interferon-gamma level <0.35 IU/mL. TB1 AG - NIL 0.00 IU/mL 08/04/2019 1:[address] [facility] TB2 AG - NIL -0.01 IU/mL 08/04/2019 1:53 PM [facility] MITOGEN-NIL 0.91 IU/mL 08/04/2019 1:[address] [facility] NIL 0.03 IU/mL 08/04/2019 1:[address] [facility] Comment: Test Performed by: [facility] [address] [place] [address] [employer] Department Manager: Henrique Miller M.D. Ph.D.; CLIA# [id number] Blood Venipuncture / Unknown 07/31/2019 10:44 PM GLASS ENGRAVER 07/31/2019 10:49 PM GLASS ENGRAVER us Daren Ac MD CHEMISTRY ORDERABLES Final Resul t [facility] * HIV 1 GENOTYPE (07/31/2019 10:44 PM GLASS ENGRAVER) HIV-1 GENOTYPIC HI-RT DRUG RESISTANCE INTERP 08/05/2019 3:11 PM [employer] ENG[employer] [facility] Comment: Interpretation of results: ?? SUSC= Susceptible PLR= Potential low-level resistance LR= Low-level resistance IR= Intermediate resistance HR= High-level resistance NUCLEOS(T)LITO RT MUTATIONS L210W, T215S 08/05/2019 3:11 PM [employer] [facility] ABACAVIR LR 08/05/2019 3:11 PM [employer] [facility] DIDANOSINE LR 08/05/2019 3:11 PM [employer] [facility] EMTRICITABINE SUSC 08/05/2019 3:11 PM [employer] [facility] LAMIVUDINE SUSC 08/05/2019 3:[address] [facility] STAVUDINE IR 08/05/2019 3:[address] [facility] TENOFOVIR LR 08/05/2019 3:[address] [facility] ZIDOVUDINE IR 08/05/2019 3:11 PM [employer] [facility] NONNUCLEOSIDE RT MUTATIONS [id number] 08/05/2019 3:11 PM [employer] [facility] DORAVIRINE SUSC 08/05/2019 3:11 PM [employer] [facility] EFAVIRENZ HR 08/05/2019 3:11 PM [employer] [facility] ETRAVIRINE SUSC 08/05/2019 3:[address] [facility] NEVIRAPINE HR 08/05/2019 3:11 PM [employer] [facility] RILPIVIRINE SUSC 08/05/2019 3:11 PM [facility] PROTEASE MUTATIONS No relevant mutations detected 08/05/2019 3:11 PM [facility] ATAZANAVIR WITH [facility] 08[facility]05/2019 3:11 PM [facility] DARUNAVIR WITH [facility] 08[facility]05/2019 3:11 PM [facility] FOSAMPRENAVIR WITH [facility] 08/05/2019 3:11 PM [facility] INDINAVIR WITH [facility] 08/05/2019 3:11 PM [place] [place] [facility] 08/05/2019 3:11 PM [facility] 08/05/2019 3:11 PM [facility] SAQUIN[facility] 08/05/2019 3:11 PM [facility] TIPRANAVIR WITH [facility]ON[facility] 08/05/2019 3:11 PM [facility] Comment: ADDITIONAL INFORMATION Testing was performed using a modification of the FDA-approved [employer] HIV-1 Genotyping System, version 2.0 ([employer] [place], [place]), and results were analyzed with the most current version of the genotypic resistance interpretive algorithm of the [facility] HIV Drug Resistance Database (https://hivdb.[place].edu/page/algorithm-updates/). Results obtained by different assay methods should not be used interchangeably. This test has been modified from the head host/hostess's instructions. Its performance characteristics were determined by [facility] in a manner consistent with CLIA requirements. This test has not been cleared or approved by the U.S. Food and Drug Administration. Test Performed by: [facility] - [address] [address] [employer] Department Manager: Henrique Miller M.D. Ph.D.; CLIA# [id number] Blood Venipuncture / Unknown 07/31/2019 10:44 PM GLASS ENGRAVER 07/31/2019 10:50 PM GLASS ENGRAVER Daren Ac MD CHEMISTRY ORDERABLES Final Resul t [facility] * (ABNORMAL) RPR (07/31/2019 10:44 PM GLASS ENGRAVER) RPR REACTIVE(A ) Non-Reacti ve 08/01/2019 10:07 AM GLASS ENGRAVER [facility] LABORATORY [facility] Comment:[facility] for confirmation. RPR TITER 1:128 Titer 08/01/2019 10:07 AM GLASS ENGRAVER [facility] [employer] [facility] Blood Venipuncture / Unknown 07/31/2019 10:44 PM GLASS ENGRAVER 07/31/2019 10:50 PM GLASS ENGRAVER Daren Ac MD CHEMISTRY ORDERABLES Final Resul t Performing Organization Address [facility] Co de Phone Number [facility] [employer] [facility] CLIA# [id number] [facility] ServicesKaveh [place] [address] * HEPATITIS A IGG (07/31/2019 10:43 PM GLASS ENGRAVER) Pathologist [facility] HEPATITIS A IGG Positive 0 9:[address] [facility] Comment: Result indicates immunity to hepatitis A infection from either vaccination or past exposure to hepatitis A. False-positive results may be observed in patients with CMV antibodies or heterophilic antibodies. ?? REFERENCE VALUE Unvaccinated: Negative Vaccinated: Positive Test Performed by: [facility] [address] [place] [address] [employer] Department Manager: Henrique Miller M.D. Ph.D.; CLIA# [id number] Blood Venipuncture / Unknown 07/31/2019 10:43 PM GLASS ENGRAVER 07/31/2019 10:50 PM GLASS ENGRAVER Daren Ac MD CHEMISTRY ORDERABLES COM Final R esult Performing Organization Address [facility]/ZIP Co de Phone Number [facility] * (ABNORMAL) HSV TYPE 1 AND 2 IGG ANTIBODY (07/31/2019 10:43 PM GLASS ENGRAVER) [facility] HSV TYPE 1 IGG Positive( A) Negative 08/01/2019 1:42 PM GLASS ENGRAVER [facility] HSV TYPE 2 IGG Positive( A) Negative 08/01/2019 1:42 PM [facility] Blood Venipuncture / Unknown 07/31/2019 10:43 PM GLASS ENGRAVER 07/31/2019 10:50 PM GLASS ENGRAVER Narrative [facility] - 08/01/2019 1:42 PM GLASS ENGRAVER REFERENCE LAB ACC #: [id number] us Daren Ac MD CHEMISTRY ORDERABLES Final Resul t Performing Organization Address [facility] Co de Phone Number [facility] CLIA # [id number] [address] [place] [address] * TOXOPLASMOSIS AB IGG/IGM (07/31/2019 10:43 PM GLASS ENGRAVER) [facility] TOXOPLASMOSIS IGM Negative Negative 10:[address] [facility] Comment: No IgM antibodies to T. gondii detected. Results may be negative in patients with recent infection or who are significantly immunosuppressed. TOXOPLASMOSIS IGG Negative Negative 020 10:[address] [facility] TOXOPLASMA IGG VALUE <3 IU/mL 08/02/2019 10:55 AM [facility] Comment: REFERENCE VALUE <=9 IU/mL (Negative) 10-11 IU/mL (Equivocal) >=12 IU/mL (Positive) Test Performed by: [facility] [address] [place] [address] [employer] Department Manager: Henrique Miller M.D. Ph.D.; CLIA# [id number] Blood Venipuncture / Unknown 07/31/2019 10:43 PM GLASS ENGRAVER 07/31/2019 10:50 PM GLASS ENGRAVER us Daren Ac MD CHEMISTRY ORDERABLES Final Resul t Performing Organization Address City/[facility]/ZIP Co de Phone Number [facility] * (ABNORMAL) CMV IGG (07/31/2019 10:43 PM GLASS ENGRAVER) Pathologist [facility] CMV IGG Positive( A) Negative 08/02/2019 10:[address] [facility] Comment: Test Performed by: [facility] [address] [place] [address] [employer] Department Manager: Henrique Miller M.D. Ph.D.; CLIA# [id number] Blood Venipuncture / Unknown 07/31/2019 10:43 PM GLASS ENGRAVER 07/31/2019 10:50 PM GLASS ENGRAVER us Daren Ac MD CHEMISTRY ORDERABLES Final Resul t Performing Organization Address [facility] Co de Phone Number [facility] * MRSA PCR RAPID SCREEN (07/31/2019 6:52 PM GLASS ENGRAVER) [facility] MRSA PCR RESULT MRSA not detected MRSA not detected 07/31/2019 8:22 PM GLASS ENGRAVER [facility] Surveillance ANTERIOR NARES SWAB / Unknown Collection / Unknown 07/31/2019 6:52 PM GLASS ENGRAVER 07/31/2019 7:03 PM GLASS ENGRAVER Narrative [facility] LABORATORY [facility] - 07/31/2019 8:22 PM GLASS ENGRAVER This assay is used to detect Methicillin-Resistant S. aureus (MRSA) colonization of the nares. PLEASE NOTE: ??This test has not been approved to monitor effectiveness of MRSA decolonization. Residual DNA may temporarily be present after successful decolonization. This test was performed using an FDA approved screening methodology. us Suly Buchanan MD MICROBIOLOGY - [facility] Final Result [facility] [employer] [facility] [id number] [address] [place] [address] * GC/CHLAMYDIA, URINE (07/31/2019 6:51 PM GLASS ENGRAVER) CHLAMYDIA DNA AMPLIFICATION NOT DETECTED Not Detected 08/01/2019 4:06 PM GLASS ENGRAVER [facility] LABORATORY [facility] GC DNA AMPLIFICATION NOT DETECTED Not Detected 08/01/2019 4:06 PM [facility] LABORATORY [facility] Urine URINE SPECIMEN / Unknown Collection / Unknown 07/31/2019 6:51 PM GLASS ENGRAVER 07/31/2019 7:03 PM GLASS ENGRAVER [facility] LABORATORY [facility] - 08/01/2019 4:06 PM GLASS ENGRAVER Results should not be used for the evaluation of suspected sexual abuse or for other medico-legal indications. The only legally accepted results are from culture. Results cannot be used to assess therapeutic success or failure since nucleic acids may persist following antimicrobial therapy. Daren Ac MD URINE ORDERABLES COM Final Resul t [facility] [employer] [facility] CLPA# [id number] [address] [place] [address] * (ABNORMAL) URINALYSIS WITH REFLEX MICROSCOPIC (07/31/2019 6:51 PM GLASS ENGRAVER) COLOR UA Yellow Pale to Dark Yellow 07/31/2019 7:30 PM [facility] [email or web address] [employer] [facility]ORAT[facility] SERVICES [facility] CLARITY UA Clear Clear 07/31/2019 7:30 PM [facility] [[email or web address]] [employer] [facility]ORATORY [facility] SPECIFIC GRAVITY UA 1.028 1.003 - 1.035 07/31/2019 7:30 PM [facility] [[email or web address]] [employer] [facility] PH UA 6.0 5.0 - 8.0 07/31/2019 7:30 PM [facility] [email or web address]] [employer] LABORATORY [facility] LEUKOCYTE ESTERASE UA Negative Negative 07/31/2019 7:30 PM [facility] [[email or web address]] [employer] LABORATORY [facility] NITRITE UA Negative Negative 07/31/2019 7:30 PM [facility] [email or web address]] [employer] LABORATORY [facility] PROTEIN UA 1+(A) Negative 07/31/2019 7:30 PM [facility] GLUCOSE UA Negative Negative 07/31/2019 7:30 PM [facility] LABORATORY [facility] KETONES UA Trace(A) Negative 07/31/2019 7:30 PM [facility] UROBILINOGEN UA 4.0(A) <2.0 mg/dL 0 7:30 PM [facility] LABORATORY [facility] BILIRUBIN UA Negative Negative 07/31/2019 7:30 PM [facility] LABORATORY [facility] BLOOD UA Negative Negative 07/31/2019 7:30 PM [facility] LABORATORY [facility] WBC UA 0-2 0 - 2 /hpf 07/31/2019 7:30 PM [facility] LABORATORY [facility] RBC UA 0-2 0 - 2 /hpf 07/31/2019 7:30 PM [facility] LABORATORY [facility] BACTERIA UA Negative Negative /hpf 07/31/2019 7:30 PM [facility] LABORATORY [facility] Urine URINE SPECIMEN OBTAINED BY CLEAN CATCH PROCEDURE / Unknown Collection / Unknown 07/31/2019 6:51 PM GLASS ENGRAVER 07/31/2019 7:03 PM GLASS ENGRAVER Jessa Sams MD URINE ORDERABLES Final Result [facility]# [id number] [address] [place] [address] * XR FEMUR 2 VW RIGHT (07/31/2019 4:35 PM GLASS ENGRAVER) Anatomical Region Laterality Modality Lower Extremity Computed Radiogr aphy 07/31/2019 4:36 PM GLASS ENGRAVER Impressions 07/31/2019 4:41 PM GLASS ENGRAVER IMPRESSION: No acute osseous injury. [facility] 07/31/2019 4:41 PM GLASS ENGRAVER XR FEMUR 2 VW RIGHT DATE: 07/31/2019 4:35 PM HISTORY: Right hip stiffness. COMPARISON: None FINDINGS: There is no evidence of acute fracture or dislocation. No concerning osseous lesions are seen. Procedure Note Dee Dee Chen MD - 07/31/2019 XR FEMUR 2 VW RIGHT DATE: 07/31/2019 4:35 PM HISTORY: Right hip stiffness. COMPARISON: None FINDINGS: There is no evidence of acute fracture or dislocation. No concerning osseous lesions are seen. IMPRESSION: No acute osseous injury. DICTATION LOCATION: Location 3 - [facility] Suly Buchanan MD DIAGNOSTIC IMAGING ORDERABL ES Final Result * POC LACTIC ACID (07/31/2019 11:58 AM GLASS ENGRAVER) LACTIC ACID POC 0.5 <=2.0 mmol/L 07/31/2019 11:58 AM GLASS ENGRAVER [facility] LABORATORY SERVICES [facility] COMMENT, GASES POC RN/MD NOTIFIED 07/31/2019 11:58 AM GLASS ENGRAVER [facility] LABORATORY [facility] SPECIMEN SOURCE, GASES POC BLNK 07/31/2019 11:58 AM GLASS ENGRAVER [facility] LABORATORY [facility] COMMERCIAL CREDIT ANALYST NAME AKHIL ALEXANDER MCNEIL 07/31/2019 11:58 AM GLASS ENGRAVER [facility] LABORATORY [facility] Blood 07/31/2019 11:5 8 AM GLASS ENGRAVER 07/31/2019 11:59 AM GLASS ENGRAVER Jessa Sams MD POINT OF CARE TESTING Final Resu lt [facility]# [id number] [address] [facility] [place] [address] * XR CHEST PA AND LATERAL 2 VW (07/31/2019 11:41 AM GLASS ENGRAVER) Anatomical Region Laterality Modality Chest Computed Radiogr aphy 07/31/2019 11:4 1 AM GLASS ENGRAVER Impressions 07/31/2019 11:43 AM GLASS ENGRAVER IMPRESSION: No active pulmonary disease. DICTATION LOCATION: Location 1 - [facility] Narrative 07/31/2019 11:43 AM GLASS ENGRAVER XR CHEST PA AND LATERAL 2 VW DATE: 07/31/2019 11:41 AM HISTORY: Cough. ?? HIV infection, unspecified symptom status COMPARISON: None FINDINGS: There is no pulmonary infiltrate, pleural effusion, pneumothorax or nodule. The cardiac and mediastinal silhouettes, usman and bony thorax are within normal limits. Procedure Note Ezra Durham MD - 07/31/2019 XR CHEST PA AND LATERAL 2 VW DATE: 07/31/2019 11:41 AM HISTORY: Cough. HIV infection, unspecified symptom status COMPARISON: None FINDINGS: There is no pulmonary infiltrate, pleural effusion, pneumothorax or nodule. The cardiac and mediastinal silhouettes, usman and bony thorax are within normal limits. IMPRESSION: No active pulmonary disease. DICTATION LOCATION: Location 1 - [facility] Jessa Sams MD DIAGNOSTIC IMAGING ORDERABLES Fi nal Result * (ABNORMAL) POC RAPID HIV (07/31/2019 11:38 AM GLASS ENGRAVER) [facility] RAPID HIV SCREEN REACTIVE(A ) Non-Reacti ve 07/31/2019 11:38 AM GLASS ENGRAVER [facility] [employer] [facility] COMMERCIAL CREDIT ANALYST NAME POC SILVIA CHURCH 07/31/2019 11:38 AM GLASS ENGRAVER [facility] [employer] [facility] Blood 07/31/2019 11:3 8 AM GLASS ENGRAVER 07/31/2019 11:42 AM GLASS ENGRAVER Narrative [facility] [employer] [facility] - 07/31/2019 11:38 AM GLASS ENGRAVER Reactive result is a preliminary positive for HIV 1 and/or 2 antibodies. ??Confirmation test to follow. Jessa Sams MD POINT OF CARE TESTING Final Resu lt [facility] [employer] [facility]# [id number] [address] [address] * (ABNORMAL) HIV 1/HIV 2 AB DIFFERENTIATION (07/31/2019 11:16 AM GLASS ENGRAVER) [facility] HIV-1 AB DIFFERENTIATION Positive(A) Negative 08/04/2019 12:[address] [facility] Comment: Bands detected: gp160, gp41 Presence of HIV-1 antibodies is confirmed. Verification of a first time positive test result is recommended for the diagnosis of HIV infection. Submit a second specimen for repeat HIV serologic testing or HIV-1 RNA detection and quantification (HIVQN). HIV-2 AB DIFFERENTIATION Negative Negative 08/04/2019 12:[address] [facility] Comment: Bands detected: None Test Performed by: [facility] [address] [place] [address] [employer] Department Manager: Henrique Miller M.D. Ph.D.; CLIA# [id number] Blood Venipuncture / Unknown 07/31/2019 11:16 AM GLASS ENGRAVER 07/31/2019 1:53 PM GLASS ENGRAVER us Jessa Sams MD CHEMISTRY ORDERABLES Final Resul t [facility] * (ABNORMAL) MANUAL DIFFERENTIAL (07/31/2019 11:16 AM GLASS ENGRAVER) SEGMENTED NEUTROPHILS 86 % 07/31/2019 12:02 PM GLASS ENGRAVER [employer] [facility]. [facility] LYMPHOCYTES RELATIVE 3 % 07/31/2019 12:02 PM [facility] [[email or web address]] [employer] [facility] - . [facility] MONOCYTES RELATIVE 4 % 07/31/2019 12:02 PM [facility] [[email or web address]] [employer] [facility] - . [facility] EOSINOPHILS RELATIVE 8 % 07/31/2019 12:02 PM [facility] [[email or web address]] [employer] [facility]. [facility] NEUTROPHILS ABSOLUTE COUNT 5.05 1.90 - 7.00 K/uL 07/31/2019 12:02 PM [facility] [[email or web address]] [employer] [facility]. [facility] LYMPHOCYTES ABSOLUTE 0.16(L) 0.70 - 4.50 K/uL 07/31/2019 12:02 PM GLASS ENGRAVER [employer] [facility]. [facility] MONOCYTES ABSOLUTE 0.21 0.10 - 1.30 K/uL 07/31/2019 12:02 PM GLASS ENGRAVER [employer] [facility] - . [facility] EOSINOPHILS ABSOLUTE 0.48 0.00 - 0.70 K/uL 07/31/2019 12:02 PM GLASS ENGRAVER [employer] [facility]. [facility] TOTAL CELLS COUNTED IN DIFF 111 07/31/2019 12:02 PM GLASS ENGRAVER [employer] [facility]. [facility] RBC MORPHOLOGY abnormal 07/31/2019 12:02 PM GLASS ENGRAVER [employer] [facility]. [facility] PLATELET EST. Consistent w Count 07/31/2019 12:02 PM GLASS ENGRAVER [employer] [facility] - [facility] ANISOCYTOSIS 1+ /hpf 07/31/2019 12:02 PM GLASS ENGRAVER [facility] LABORATORY SERVICES - [facility] POIKILOCYTES 1+ /hpf 07/31/2019 12:02 PM GLASS ENGRAVER [facility] LABORATORY SERVICES - [facility] POLYCHROMASIA 1+ /hpf 07/31/2019 12:02 PM GLASS ENGRAVER [facility] LABORATORY SERVICES - [facility] OVALOCYTES 1+ /hpf 07/31/2019 12:02 PM [facility] LABORATORY SERVICES - [facility] Blood Venipuncture / Unknown 07/31/2019 11:16 AM GLASS ENGRAVER 07/31/2019 11:22 AM GLASS ENGRAVER Jessa Sams MD HEMATOLOGY ORDERABLES COM Final Result [facility] LABORATORY [facility] CLIA# [id number] [address] [place] [address] * HEMOGLOBIN A1C (07/31/2019 11:16 AM GLASS ENGRAVER) Pathologist [facility] HEMOGLOBIN A1C 5.2 <5.7 % 07/31/2019 11:49 AM GLASS ENGRAVER [facility] LABORATORY SERVICES - [facility] EST. AVG GLUCOSE, A1C 103 mg/dL 07/31/2019 11:49 AM [facility] LABORATORY SERVICES - [facility] Blood Venipuncture / Unknown 07/31/2019 11:16 AM GLASS ENGRAVER 07/31/2019 11:22 AM GLASS ENGRAVER Narrative [facility] LABORATORY SERVICES - [facility] - 07/31/2019 11:49 AM GLASS ENGRAVER HGB A1C INTERPRETATION NORMAL: ? <5.7% PRE-DIABETES: 5.7 - 6.4% DIABETES: ? 6.5% OR GREATER Jessa Sams MD CHEMISTRY ORDERABLES Final Resul t [facility] [employer] [facility] CLIA# [id number] [address] [place] [address] * (ABNORMAL) CD4 COUNT AND T4T8 RATIO (07/31/2019 11:16 AM GLASS ENGRAVER) CD45 TOTAL LYMPH COUNT 0.43(L) 0.82 - 2.84 thou/mcL 08/03/2019 10:[address] [facility] CD3 74 58 - 86 % 08/03/2019 10:[address] [facility] CD3 ABSOLUTE 321(L) 550 - 2202 cells/mc L 08/03/2019 10:[address] [facility] % CD4 (T CELLS) 1(L) 32 - 64 % 08/03/2019 10:[address] [facility] CD4 ABSOLUTE 6(L) 365 - 1437 cells/mc L 08/03/2019 10:[address] [facility] % CD8 (T CELLS) 62(H) 18 - 40 % 08/03/2019 10:[address] [facility] CD8 ABSOLUTE 266 199 - 846 cells/mc L 08/03/2019 10:[address] [facility] CD4/CD8 RATIO 0.0(L) >=0.9 08/03/2019 10:[address] [facility] ADDENDUM COMMENT SEE COMMENTS 08/03/2019 10:[address] [facility] Comment: 12% of lymphocytes are CD3 positive but negative for both CD4 and CD8. A portion of testing was performed at [facility] (CLIA #[id number]), [address] [place] [address]. ADDITIONAL INFORMATION This test was developed using an analyte specific reagent. Its performance characteristics were determined by [facility] in a manner consistent with CLIA requirements. This test has not been cleared or approved by the U.S. Food and Drug Administration. Test Performed by: [place] [id number] [employer] Department Manager: Henrique Miller M.D. Ph.D.; CLIA# [id number] Blood Venipuncture / Unknown 07/31/2019 11:16 AM GLASS ENGRAVER 07/31/2019 11:22 AM GLASS ENGRAVER Jessa Sams MD HEMATOLOGY ORDERABLES Final Resu lt [facility] * (ABNORMAL) HIV DETECTION W/REFLX CONFIRMATION (07/31/2019 11:16 AM GLASS ENGRAVER) [facility] HIV-1 AND 2 ABS AND HIV-1 AG REACTIVE(A ) Non-reacti ve 07/31/2019 1:53 PM GLASS ENGRAVER [facility] [employer] [facility] Blood Venipuncture / Unknown 07/31/2019 11:16 AM GLASS ENGRAVER 07/31/2019 11:22 AM GLASS ENGRAVER Narrative [facility] [employer] [facility] - 07/31/2019 1:53 PM GLASS ENGRAVER Specimen sent out for confirmation of reactive HIV. Initial HIV testing was performed by [employer] on the Cheli Karen e602 module. Values obtained with different assay methods cannot be used interchangeably. Result is not diagnostic (considered preliminary), and diagnosis of HIV infection must be based on supplemental test results. Jessa Sams MD CHEMISTRY ORDERABLES Final Resul t Performing Organization Address City/[facility]/ZIP Co de Phone Number [facility] [employer] [facility] CLIA# [id number] [address] [place] [address] * BLOOD CULTURE (07/31/2019 11:16 AM GLASS ENGRAVER) [facility] BLOOD CULTURE No growth 08/05/2019 12:28 PM GLASS ENGRAVER [facility] Blood (Peripheral) Venipuncture / Unknown 07/31/2019 11:16 AM GLASS ENGRAVER 07/31/2019 11:21 AM GLASS ENGRAVER Jessa Sams MD MICROBIOLOGY - GENERAL ORDERABLE S Final Result Performing Organization Address City/[facility]/ZIP Co de Phone Number [facility] CLIA# [id number] [address] [place], [place] [address] * BLOOD CULTURE (07/31/2019 11:16 AM GLASS ENGRAVER) BLOOD CULTURE No growth 08/05/2019 12:28 PM GLASS ENGRAVER [employer] LABORATORY SERVICES - [facility] Blood (Peripheral) Venipuncture / Unknown 07/31/2019 11:16 AM GLASS ENGRAVER 07/31/2019 11:22 AM GLASS ENGRAVER Jessa Sams MD MICROBIOLOGY - GENERAL ORDERABLE S Final Result Performing Organization Address City/[facility]/ZIP Co de Phone Number [facility] [employer] [facility] [id number] [address] [place] [address] * PROTIME-INR (07/31/2019 11:16 AM GLASS ENGRAVER) Pathologist [facility] PROTIME 13.4 12.7 - 15.1 Seconds 07/31/2019 11:43 AM [facility] [employer] [facility] INR 1.0 0.9 - 1.1 07/31/2019 11:43 AM [facility] [employer] [facility] Blood Venipuncture / Unknown 07/31/2019 11:16 AM GLASS ENGRAVER 07/31/2019 11:22 AM GLASS ENGRAVER Narrative [facility] LABORATORY [facility] - 07/31/2019 11:43 AM GLASS ENGRAVER INR Therapeutic Range: Adult: ?? 2.0 - 3.0 for pulmonary embolism or prophylaxis against venous ?thrombosis or systemic embolization. 2.0 - 3.0 for patients with tissue heart valves. 2.5 - 3.5 for patients with mechanical heart valves or post [place]. Pediatric ??(12 years and under): 1.5 - 3.0 Although the target range in children is not well established, ?INR values of 1.5 - 3.0 are recommended for most patients. ?Higher values have been used in children with prosthetic ?cardiac valves and hereditary clotting disorders. (<3 days) therapeutic ranges have not been established. us Jessa Sams MD HEMATOLOGY ORDERABLES Final Resu lt [facility] [employer] [facility] CLIA# [id number] [address] [place] [address] * (ABNORMAL) C-REACTIVE PROTEIN (07/31/2019 11:16 AM GLASS ENGRAVER) Pathologist [facility] CRP 7.2(H) <5.0 mg/L 07/31/2019 11:55 AM [facility] [email or web address]] [facility] Blood Venipuncture / Unknown 07/31/2019 11:16 AM GLASS ENGRAVER 07/31/2019 11:22 AM GLASS ENGRAVER Jessa Sams MD CHEMISTRY ORDERABLES Final Resul t [facility] [employer] [id number] [address] [place] [address] * (ABNORMAL) COMPREHENSIVE METABOLIC PANEL (07/31/2019 11:16 AM GLASS ENGRAVER) [facility] SODIUM 142 136 - 145 mmol/L 07/31/2019 11:55 AM GLASS ENGRAVER [facility] - . [facility] POTASSIUM 3.8 3.5 - 5.0 mmol/L 07/31/2019 11:55 AM GLASS ENGRAVER [facility] - . [facility] CHLORIDE 102 98 - 107 mmol/L 07/31/2019 11:55 AM GLASS ENGRAVER [facility] - . [facility] CO2 26 22 - 29 mmol/L 07/31/2019 11:55 AM GLASS ENGRAVER [facility] - . [facility] CALCIUM 9.4 8.6 - 10.2 mg/dL 07/31/2019 11:55 AM GLASS ENGRAVER [facility] - [facility] BUN 10 6 - 20 mg/dL 07/31/2019 11:55 AM GLASS ENGRAVER [facility] - [facility] CREATININE 0.93 0.67 - 1.17 mg/dL 07/31/2019 11:55 AM GLASS ENGRAVER [facility] - [facility] GLUCOSE 88 74 - 99 mg/dL 07/31/2019 11:55 AM GLASS ENGRAVER [facility] - . [facility] TOTAL PROTEIN 9.5(H) 6.7 - 8.6 g/dL 07/31/2019 11:55 AM GLASS ENGRAVER [facility] - [facility] ALBUMIN 4.0 3.5 - 5.2 g/dL 07/31/2019 11:55 AM [facility] LABORATORY [facility] BILIRUBIN TOTAL 0.2(L) 0.3 - 1.2 mg/dL 07/31/2019 11:55 AM [facility] ALKALINE PHOSPHATASE 65 40 - 129 U/L 07/31/2019 11:55 AM [facility] LABORATORY [facility] AST 20 <41 U/L 07/31/2019 11:55 AM [facility] [employer] [facility] ALT 13 <42 U/L 07/31/2019 11:55 AM [facility] [employer] [facility] GFR >60 >=60 mL/min/1.7 3 sq meter 07/31/2019 11:55 AM [facility] [employer] [facility] Comment: eGFR has not been validated for [...] GFR, >60 >=60 mL/min/1.7 3 sq meter 07/31/2019 11:55 AM [facility] [employer] [facility] ANION GAP 14 8 - 16 mmol/L 07/31/2019 11:55 AM [facility] [employer] [facility] Blood Venipuncture / Unknown 07/31/2019 11:16 AM GLASS ENGRAVER 07/31/2019 11:22 AM GLASS ENGRAVER [facility] [employer] LABORAT[facility] - 07/31/2019 11:55 AM GLASS ENGRAVER Samples containing indocyanine green cause interferences on Total and/or Direct Bilirubin and must not be measured. us Jessa Sams MD CHEMISTRY ORDERABLES Final Resul t [facility] [employer] [facility] CLIA# [id number] [address] [place] [address] * (ABNORMAL) CBC WITH DIFFERENTIAL (07/31/2019 11:16 AM GLASS ENGRAVER) WBC 5.9 4.0 - 9.8 K/uL 07/31/2019 11:27 AM [facility] [email or web address]] [facility] - [facility] RBC 4.54 4.50 - 5.40 M/uL 07/31/2019 11:27 AM [facility] [email or web address]] [facility] - [facility] HEMOGLOBIN 11.9(L) 13.6 - 16.5 g/dL 07/31/2019 11:27 AM [facility] [[email or web address]] [facility] - [facility] HEMATOCRIT 37.3(L) 40.0 - 48.0 % 07/31/2019 11:27 AM [facility] [email or web address]] [facility] - [facility] MCV 82.2 82.0 - 99.0 fL 07/31/2019 11:27 AM [facility] [[email or web address]] [facility] - [facility] MCH 26.2(L) 27.2 - 32.6 pg 07/31/2019 11:27 AM [facility] [[email or web address]] [facility] - [facility] MCHC 31.9 31.5 - 35.5 g/dL 07/31/2019 11:27 AM [facility] [[email or web address]] [facility] - [facility] RDW 14.6(H) 11.5 - 14.5 % 07/31/2019 11:27 AM [facility] [[email or web address]] [facility] - [facility] RDW-STDEV 42.9 37.1 - 48.7 fL 07/31/2019 11:27 AM [facility] [[email or web address]] [facility] - [facility] PLATELETS 289 140 - 350 K/uL 07/31/2019 11:27 AM [facility] [[email or web address]] [facility] - . [facility] MPV 9.5 9.3 - 12.4 fL 07/31/2019 11:27 AM [facility] [[email or web address]] [facility] - [facility] Blood Venipuncture / Unknown 07/31/2019 11:16 AM GLASS ENGRAVER 07/31/2019 11:22 AM GLASS ENGRAVER us Jessa Sams MD HEMATOLOGY ORDERABLES Final Resu lt [facility] - [facility] CLIA# [id number] [address] [place] [address] * (ABNORMAL) POC GLUCOSE (07/31/2019 10:32 AM GLASS ENGRAVER) GLUCOSE POC 71(L) 74 - 99 mg/dL 07/31/2019 10:32 AM GLASS ENGRAVER [facility] COMMENT, GLU POC Notified RN/MD 07/31/2019 10:32 AM [facility] COMMENT 2, GLU POC Repeated Glucose 07/31/2019 10:32 AM [facility] LABORATORY [facility] COMMERCIAL CREDIT ANALYST NAME POC SILVIA CHURCH 07/31/2019 10:32 AM GLASS ENGRAVER [facility] Blood, whole 07/31/2019 10:3 2 AM GLASS ENGRAVER 07/31/2019 10:39 AM GLASS ENGRAVER Jessa Sams MD POINT OF CARE TESTING Final Resu lt [facility] CLIA# [id number] [address] [place] [address] * STREPTOCOCCUS GROUP A CULTURE (07/31/2019 10:30 AM GLASS ENGRAVER) Pathologist [facility] CULTURE No Streptococcus Group A, C, or G isolated 08/02/2019 6:37 AM [facility] Upper Respiratory SPECIMEN FROM THROAT / Unknown 07/31/2019 10:30 AM GLASS ENGRAVER 07/31/2019 10:57 AM GLASS ENGRAVER Jessa Sams MD MICROBIOLOGY - GENERAL ORDERABLE S Final Result [facility] CLPA# [id number] [address] [place] [address] * RAPID STREP SCREEN WITH REFLEX CULTURE (07/31/2019 10:30 AM GLASS ENGRAVER) RAPID STREP Negative Negative 07/31/2019 10:57 AM GLASS ENGRAVER [facility] Comment: Culture set up on negative strep screen. ?? Upper Respiratory SPECIMEN FROM THROAT / Unknown 07/31/2019 10:30 AM GLASS ENGRAVER 07/31/2019 10:39 AM GLASS ENGRAVER Jessa Sams MD MICROBIOLOGY - GENERAL ORDERABLE S Final Result Performing Organization Address [facility]/State/ZIP Co de Phone Number [facility] [employer] [facility]# [id number] [address] [place] [address] * POC GLUCOSE (07/31/2019 9:54 AM GLASS ENGRAVER) [facility] GLUCOSE POC 82 74 - 99 mg/dL 07/31/2019 9:54 AM GLASS ENGRAVER [employer] - [facility] COMMERCIAL CREDIT ANALYST NAME POC ROLA RAMOS 07/31/2019 9:54 AM GLASS ENGRAVER [employer] [facility] - [facility] Blood, whole 07/31/2019 9:54 AM GLASS ENGRAVER 07/31/2019 3:29 PM GLASS ENGRAVER Interface Provider Poct POINT OF CARE TESTING Fi nal Result Performing Organization Address [facility]/ZIP Co de Phone Number [facility] LABORATORY [facility]# [id number] [address] [place] [address] documented in this encounter Visit Diagnoses Diagnosis HIV infection, unspecified symptom status- Primary Oral thrush Candidiasis of mouth Oropharyngeal dysphagia Dysphagia, oropharyngeal phase Cellulitis and abscess of leg Cellulitis and abscess of leg, except foot Skin lesions, generalized Unspecified disorder of skin and subcutaneous tissue History of syphilis Personal history of other infectious and parasitic disease Symptomatic HIV infection Human immunodeficiency virus [HIV] disease Skin lesion of lower extremity Oral thrush Candidiasis of mouth Oropharyngeal dysphagia Dysphagia, oropharyngeal phase Pain of right lower extremity Cellulitis and abscess of leg Cellulitis and abscess of leg, except foot Skin lesions, generalized Unspecified disorder of skin and subcutaneous tissue History of syphilis Personal history of other infectious and parasitic disease Syphilis Syphilis, unspecified documented in this encounter Administered Medications Inactive Administered Medications - up to 3 most recent administrations Medication Order MAR Action Action Date Dose Rate Site acetaminophen (TYLENOL) tablet 650 mg 650 mg, Oral, EVERY 6 HOURS PRN, Starting on Lara 07/31/19 at 1531, Until Mon 20 at 1337, Other (See Comment), See admin instructions, Routine Given 08/04/2019 12:26 AM GLASS ENGRAVER 650 mg Given 08/01/2019 8:56 PM GLASS ENGRAVER 650 mg cefTRIAXone (ROCEPHIN) 2,000 mg in dextrose (iso-osmotic) 50 mL IVPB 2,000 mg, IV, EVERY 24 HOURS (DAILY), First dose on Sun08/01/19 at 1130, Until Discontinued, Routine, Antibiotic Indication: Other: Enter in Comments, Antibiotic Indication: Syphilis New Bag 08/04/2019 8:50 AM GLASS ENGRAVER 2,000 mg 100 mL/hr New Bag 08/03/2019 8:26 AM GLASS ENGRAVER 2,000 mg 100 mL/hr Rate Verify 08/02/2019 10:06 AM GLASS ENGRAVER 100 mL/hr dextrose 5 % in water 250 mL flush bag 25 mL 25 mL, IV, SEE ADMIN INSTRUCTIONS, Starting on Sun08/01/19 at 0834, Until Sun08/04/19 at 1337, Routine diphenhydrAMINE (BENADRYL) tablet 25 mg 25 mg, Oral, EVERY 6 HOURS PRN, Starting on Lara 07/31/19 at 2001, Until Sun08/04/19 at 1337, Itching, Routine Given 08/02/2019 10:28 PM GLASS ENGRAVER 25 mg Given 08/01/2019 8:36 PM GLASS ENGRAVER 25 mg Given 08/01/2019 4:59 AM GLASS ENGRAVER 25 mg enoxaparin (LOVENOX) injection 40 mg 40 mg, subCUT, EVERY 24 HOURS, First dose on Lara 07/31/19 at 2100, Until Discontinued, Routine, Indication: Prophylaxis of VTE, Dose to be adjusted per facility protocol? Yes Given 08/03/2019 8:49 PM GLASS ENGRAVER 40 mg Abdomen, Right Lower Quadrant Given 08/02/2019 8:07 PM GLASS ENGRAVER 40 mg Ab dominal Tissue Given 08/01/2019 8:37 PM GLASS ENGRAVER 40 mg Ab dominal Tissue fluconazole (DIFLUCAN) 200 mg in 100 mL sodium chloride (iso-osmotic) IVPB 200 mg, IV, ONE TIME ONLY, 1 dose, On Lara 07/31/19 at 1700, Routine, Antibiotic Indication: Other: Enter in Comments, Antibiotic Indication: Thrush New Bag 07/31/2019 9:30 PM GLASS ENGRAVER 200 mg 100 mL/hr fluconazole (DIFLUCAN) 200 mg in 100 mL sodium chloride (iso-osmotic) IVPB 200 mg, IV, EVERY 24 HOURS (DAILY), First dose on Sun08/01/19 at 0900, Until Discontinued, Routine, Antibiotic Indication: Other: Enter in Comments, Antibiotic Indication: Thrush New Bag 08/03/2019 9:19 AM GLASS ENGRAVER 200 mg 100 mL/hr Rate Change 08/02/2019 11:55 AM GLASS ENGRAVER 100 mL/hr New Bag 08/02/2019 11:49 AM GLASS ENGRAVER 200 mg 100 mL/hr HYDROcodone-acetaminophen (NORCO) 5-325 mg per tablet 1 Tablet 1 Tablet, Oral, EVERY 4 HOURS PRN, Starting on Lara 07/31/19 at 1531, Until Sun08/04/19 at 1337, Pain (See admin instructions), Routine Given 08/03/2019 2:33 PM GLASS ENGRAVER 1 Tablet Given 08/02/2019 11:21 AM GLASS ENGRAVER 1 Tablet Given 08/01/2019 8:36 PM GLASS ENGRAVER 1 Tablet ibuprofen (MOTRIN) tablet 600 mg 600 mg, Oral, EVERY 6 HOURS PRN, Starting on Sun07/31/19 at 1530, Until Sun08/04/19 at 1337, Pain, Mild, Routine Given 08/02/2019 8:07 PM GLASS ENGRAVER 600 mg Given 08/01/2019 12:17 AM GLASS ENGRAVER 600 mg nystatin (MYCOSTATIN) 100,000 unit/mL suspension 1,000,000 Units 1,000,000 Units, Oral, FOUR TIMES DAILY, 40 doses, First dose on Sun07/31/19 at 2100, Last dose on Sun08/10/19 at 1800, Routine, Antibiotic Indication: Upper Respiratory Tract / ENT Infection Given 08/04/2019 8:50 AM GLASS ENGRAVER 1,000,000 Units Given 08/03/2019 8:49 PM GLASS ENGRAVER 1,000,000 Units Given 08/03/2019 6:11 PM GLASS ENGRAVER 1,000,000 Units piperacillin-tazobactam (ZOSYN) 3.375 gram in dextrose (iso-osmotic) 50 mL IVPB 3.375 Gram, IV, ONE TIME ONLY, 1 dose, On Lara 07/31/19 at 1700, Routine, Antibiotic Indication: Wound / Cellulitis / Abscess New Bag 07/31/2019 5:28 PM GLASS ENGRAVER 3.375 Grams 100 mL/hr sodium chloride 0.9 % 250 mL flush bag 25 mL 25 mL, IV, SEE ADMIN INSTRUCTIONS, Starting on Sun08/01/19 at 0834, Until Sun08/04/19 at 1337, Routine New Bag 08/01/2019 9:33 AM GLASS ENGRAVER 25 mL 20 mL/hr sodium chloride 0.9% bolus solution 1,000 mL 1,000 mL, IV, ONE TIME ONLY, 1 dose, On Sun07/31/19 at 1045, at 2,000 mL/hr, Administer over 30 Minutes, Routine New Bag 07/31/2019 11:18 AM GLASS ENGRAVER 1,000 mL 2000 mL/hr sodium chloride 0.9% bolus solution 500 mL 500 mL, IV, ONE TIME ONLY, 1 dose, On Lara 07/31/19 at 1830, at 999 mL/hr, Administer over 30 Minutes, Routine New Bag 07/31/2019 7:50 PM GLASS ENGRAVER 500 mL 999 mL/hr sodium chloride 0.9% infusion IV, at 100 mL/hr, CONTINUOUS, Starting on Sun07/31/19 at 1545, Until Sun08/01/19 at 0544, Routine Restarted 08/01/2019 9:27 AM GLASS ENGRAVER 100 mL/hr Rate Verify 08/01/2019 5:00 AM GLASS ENGRAVER 100 mL/hr Rate Verify 08/01/2019 4:00 AM GLASS ENGRAVER 100 mL/hr sodium chloride flush injection 5 mL 5 mL, IV, EVERY 12 HOURS (BlD), First dose on Sun08/01/19 at 0900, Until Discontinued, Routine Given 08/04/2019 8:50 AM GLASS ENGRAVER 5 mL Given 08/03/2019 8:45 PM GLASS ENGRAVER 5 mL Given 08/03/2019 8:27 AM GLASS ENGRAVER 5 mL sodium chloride flush injection 5 mL 5 mL, IV, SEE ADMIN INSTRUCTIONS, Starting on Sun08/01/19 at 0834, Until Sun08/04/19 at 1337, Routine vancomycin (VANCOCIN) 1,000 mg in dextrose 5% 200 mL IVPB (PREMIX) 1,000 mg (rounded from 913.5 mg = 15 mg/kg ? 60.9 kg), IV, EVERY 12 HOURS, First dose on Sun08/01/19 at 0900, Until Discontinued, Routine, Antibiotic Indication: Wound / Cellulitis / Abscess Rate Verify 08/01/2019 8:51 PM GLASS ENGRAVER 200 mL/hr New Bag 08/01/2019 8:49 PM GLASS ENGRAVER 1,000 mg 200 mL/hr Rate Verify 08/01/2019 9:39 AM GLASS ENGRAVER 200 mL/hr vancomycin (VANCOCIN) 1,000 mg in dextrose 5% 200 mL IVPB (PREMIX) 1,000 mg, IV, EVERY 8 HOURS, First dose (after last reorder) on 08/02/19 at 1100, Until Discontinued, Routine, Antibiotic Indication: Wound / Cellulitis / Abscess Rate Verify 08/03/2019 3:00 AM GLASS ENGRAVER 20 0 mL/hr New Bag 08/03/2019 3:00 AM GLASS ENGRAVER 1,000 mg 200 mL/hr Rate Verify 08/02/2019 6:10 PM GLASS ENGRAVER 200 mL/hr VANCOMYCIN CONSULT TO PHARMACY Initial dose: Duration:, Routine, Antibiotic Indication: Wound / Cellulitis / Abscess, Starting on Lara 07/31/19 at 1602 vancomycin in sodium chloride 0.9% (VANCOCIN) 1250 mg/262.5 mL IVPB 1,250 mg 1,250 mg, IV, ONE TIME ONLY, 1 dose, On Lara 07/31/19 at 1700, Routine, Antibiotic Indication: Wound / Cellulitis / Abscess New Bag 07/31/2019 6:02 PM GLASS ENGRAVER 1,250 mg 17 5 mL/hr vancomycin in sodium chloride 0.9% (VANCOCIN) 1250 mg/262.5 mL IVPB 1,250 mg 1,250 mg, IV, EVERY 8 HOURS, First dose (after last reorder) on Sun08/03/19 at 1400, Until Discontinued, Routine, Antibiotic Indication: Wound / Cellulitis / Abscess New Bag 08/04/2019 5:33 AM GLASS ENGRAVER 1,250 mg 175 mL/hr New Bag 08/03/2019 10:27 PM GLASS ENGRAVER 1,250 mg 175 mL/hr New Bag 08/03/2019 2:31 PM GLASS ENGRAVER 1,250 mg 175 mL/hr documented in this encounter Active and Recently Administered Medications Times are shown in GLASS ENGRAVER. Scheduled Medication Order 08/02/2019 08/03/2019 08/04/2019 cefTRIAXone (ROCEPHIN) 2,000 mg in dextrose (iso-osmotic) 50 mL IVPB 2,000 mg, IV, EVERY 24 HOURS (DAILY), First dose on Sun08/01/19 at 1130, Until Discontinued, Routine, Antibiotic Indication: Other: Enter in Comments, Antibiotic Indication: Syphilis 1005 (New Bag - Provider: Michelle Zapata RN)1006 (Rate Verify - Provider: Mishel Villatoro RN)1035 (Stopped - Provider: Michelle Zapata RN) 0826 (New Bag - Provider: Kaylynn Moreno RN)0856 (Stopped - Provider: Kaylynn Moreno, VICTOR MANUEL) 0850 (New Bag - Provider: Kaylynn Moreno, RN)0920 (Stopped - Provider: Kaylynn Moreno, RN) dextrose 5 % in water 250 mL flush bag 25 mL 25 mL, IV, SEE ADMIN INSTRUCTIONS, Starting on Sun08/01/19 at 0834, Until Sun08/04/19 at 1337, Routine enoxaparin (LOVENOX) injection 40 mg 40 mg, subCUT, EVERY 24 HOURS, First dose on Lara 07/31/19 at 2100, Until Discontinued, Routine, Indication: Prophylaxis of VTE, Dose to be adjusted per facility protocol? Yes 2006 (Given - Provider: Mishel Villatoro RN) 2048 (Given - Provider: Tarsha West RN) fluconazole (DIFLUCAN) 200 mg in 100 mL sodium chloride (iso-osmotic) IVPB 200 mg, IV, EVERY 24 HOURS (DAILY), First dose on Sun08/01/19 at 0900, Until Discontinued, Routine, Antibiotic Indication: Other: Enter in Comments, Antibiotic Indication: Thrush 1149 (New Bag - Provider: Michelle Zapata RN)1152 (Paused - Provider: Mishel Villatoro RN)1152 (Paused - Provider: Mishel Villatoro RN)1155 (Rate Change - Provider: Mishel Villatoro RN)1244 (Stopped - Provider: Mishel Villatoro RN)1249 (Stopped - Provider: Michelle Zapata RN) 0919 (New Bag - Provider: Kaylynn Moreno RN)1019 (Stopped - Provider: Kaylynn Moreno, RN) 0900 (Refused - Provider: Kaylynn Moreno RN) naloxone (NARCAN) 0.4 mg/mL injection 0.1 mg 0.1 mg, IV, SEE ADMIN INSTRUCTIONS, Starting on Sun07/31/19 at 1530, Until Sun08/04/19 at 1337, Routine nystatin (MYCOSTATIN) 100,000 unit/mL suspension 1,000,000 Units 1,000,000 Units, Oral, FOUR TIMES DAILY, 40 doses, First dose on Lara 07/31/19 at 2100, Last dose on 08/10/19 at 1800, Routine, Antibiotic Indication: Upper Respiratory Tract / ENT Infection 0952 (Given - Provider: Michelle Zapata, RN)1329 (Refused - Provider: Michelle Zapata RN)1805 (Given - Provider: Michelle Zapata RN)2006 (Given - Provider: Mishel Villatoro, VICTOR MANUEL) 0834 (Given - Provider: Kaylynn Moreno RN)1432 (Given - Provider: Kaylynn Moreno RN)181 (Given - Provider: Kaylynn Moreno RN)204 (Given - Provider: Tarsha West, VICTOR MANUEL) 0850 (Given - Provider: Kaylynn Moreno, RN) sodium chloride 0.9 % 250 mL flush bag 25 mL 25 mL, IV, SEE ADMIN INSTRUCTIONS, Starting on Sun08/01/19 at 0834, Until Sun08/04/19 at 1337, Routine sodium chloride flush injection 5 mL 5 mL, IV, EVERY 12 HOURS (BlD), First dose on Sun08/01/19 at 0900, Until Discontinued, Routine 1001 (Given - Provider: Michelle Zpaata RN)2006 (Given - Provider: Mishel Villatoro RN) 08 (Given - Provider: Kaylynn Moreno RN)2044 (Given - Provider: Tarsha West, VICTOR MANUEL) 0850 (Given - Provider: Kaylynn Moreno RN) sodium chloride flush injection 5 mL 5 mL, IV, SEE ADMIN INSTRUCTIONS, Starting on Sun08/01/19 at 0834, Until Sun08/04/19 at 1337, Routine vancomycin (VANCOCIN) 1,000 mg in dextrose 5% 200 mL IVPB (PREMIX) (CANCELED) 1,000 mg, IV, EVERY 8 HOURS, First dose (after last reorder) on 08/02/19 at 1100, Until Discontinued, Routine, Antibiotic Indication: Wound / Cellulitis / Abscess 1157 (New Bag - Provider: Michelle Zapata RN)1303 (Rate Change - Provider: Mishel Villatoro RN)1306 (Paused - Provider: Mishel Villatoro RN)1356 (Stopped - Provider: Michelle Zapata RN)180 (New Bag - Provider: Michelle Zapata RN)1810 (Rate Verify - Provider: Mishel Villatoro RN)1909 (Stopped - Provider: Mishel Villatoro RN) 0300 (New Bag - Provider: Mishel Villatoro RN)0300 (Rate Verify - Provider: Mishel Villatoro RN)0400 (Stopped - Provider: Mishel Villatoro RN)1100 (Canceled Entry - Provider: Kaylynn Moreno RN) VANCOMYCIN CONSULT TO PHARMACY Initial dose: Duration:, Routine, Antibiotic Indication: Wound / Cellulitis / Abscess, Starting on Lara 07/31/19 at 1602 vancomycin in sodium chloride 0.9% (VANCOCIN) 1250 mg/262.5 mL IVPB 1,250 mg 1,250 mg, IV, EVERY 8 HOURS, First dose (after last reorder) on Sun08/03/19 at 1400, Until Discontinued, Routine, Antibiotic Indication: Wound / Cellulitis / Abscess 1431 (New Bag - Provider: Kaylynn Moreno RN)1601 (Stopped - Provider: Kaylynn Moreno RN)2227 (New Bag - Provider: Tarsha West RN) 0000 (Stopped - Provider: Tarsha West RN)0533 (New Bag - Provider: Tarsha West RN)0703 (Stopped - Provider: Kaylynn Moreno RN) PRN Medication Order 08/02/2019 08/03/2019 08/04/2019 acetaminophen (TYLENOL) tablet 650 mg 650 mg, Oral, EVERY 6 HOURS PRN, Starting on Lara 07/31/19 at 1531, Until 08/04/19 at 1337, Other (See Comment), See admin instructions, Routine 0026 (Given - Provider: Tarsha West RN) diphenhydrAMINE (BENADRYL) tablet 25 mg 25 mg, Oral, EVERY 6 HOURS PRN, Starting on Lara 07/31/19 at 2001, Until 08/04/19 at 1337, Itching, Routine 2228 (Given - Provider: Mishel Villatoro RN) HYDROcodone-acetaminop hen (NORCO) 5-325 mg per tablet 1 Tablet 1 Tablet, Oral, EVERY 4 HOURS PRN, Starting on Alra 07/31/19 at 1531, Until 08/04/19 at 1337, Pain (See admin instructions), Routine 1121 (Given - Provider: Michelle Zapata, RN) 1433 (Given - Provider: Kaylynn Moreno, VICTOR MANUEL) ibuprofen (MOTRIN) tablet 600 mg 600 mg, Oral, EVERY 6 HOURS PRN, Starting on Lara 07/31/19 at 1530, Until 08/04/19 at 1337, Pain, Mild, Routine 2006 (Given - Provider: Mishel Villatoro, VICTOR MANUEL) ondansetron (ZOFRAN) 4 mg/2 mL injection 4 mg 4 mg, IV, EVERY 6 HOURS PRN, Starting on Lara 07/31/19 at 1531, Until Sun08/04/19 at 1337, Nausea/Emesis, Routine documented in this encounter
== END 2024-08-03 11:10 ==
LOC: ANHED 02:35
PROVIDERS: Emergency Provider Emergency Medicine
DX: S91.112A Laceration without foreign body of left great toe without damage to nail, initial encounter (principal); M21.372 Foot drop, left foot; N39.0 Urinary tract infection, site not specified; X58.XXXA Exposure to other specified factors, initial encounter
CPT/HCPCS: 99283; A9270